=== PATIENT | female | born 1960 | race Caucasian/White ===

== ENCOUNTER 2022-03-23 18:02 | Outpatient (REF) | payer MEDICARE, BC, SELFPAY ==
[2022-03-23 16:47] LABS: COMMENT (LAB VIEW ONLY) 192.23 mg/dL; Microalb ug/mg Crea 6.2 ug/mg Cr
[2022-03-23 19:01] LABS: HCT 37.3 % (36.0-46.0); HGB 11.8 g/dL (11.2-15.7); MCH 28.7 pg (27.0-33.0); MCHC 31.6 % (32.0-36.0); MCV 91 fL (80-95); MPV 9.4 fL (8.0-11.0); Platelet Count 310 10^3/uL (130-400); RBC 4.11 10^6/uL (3.93-5.22); RDW 12.7 % (11.7-14.6); RDW-SD 41.8 fL; WBC 7.01 10^3/uL (4.4-10.8)
[2022-03-23 19:12] LABS: Hemoglobin A1C 5.6 % (<5.7)
[2022-03-23 19:23] LABS: ALT 32 U/L (14-59); AST 13 U/L (15-37); Albumin 3.9 g/dL (3.4-5.0); Alkaline Phosphatase 104 U/L (46-116); Anion Gap 10.6 mmol/L (3-11); BUN 19 mg/dL (7-18); Bilirubin, Total 1.6 mg/dL (0.2-1.0); CO2 27.4 mmol/L (21.0-32.0); Chloride 107 mmol/L (98-107); Estimated GFR 56.56 (mL/min/1.73m2); Glucose 128 mg/dL (74-106); Potassium 4.2 mmol/L (3.5-5.1); Sodium 145 mmol/L (136-145); TSH 2.33 uIU/mL (0.36-3.74); Total Protein 6.8 g/dL (6.4-8.2)
== END 2022-03-23 18:03 | disposition home or self-care (01) ==
LOC: NCHCN 18:02
PROVIDERS: Visit Provider Nurse Practitioner Family
DX: E11.9 Type 2 diabetes mellitus without complications (principal); K92.9 Disease of digestive system, unspecified; M79.7 Fibromyalgia; R51.9 Headache, unspecified; E83.42 Hypomagnesemia; N39.0 Urinary tract infection, site not specified; I10 Essential (primary) hypertension
CPT/HCPCS: 80053; 85027; 82043; 82570; 83036; 83735; 84443; 87086

== ENCOUNTER → 2022-04-09 10:19 | Outpatient (CLI) | payer MEDICARE, BC, SELFPAY ==
--- NOTE | 2022-04-09 10:50 | DI.RAD_ITS ---
Exam(s) XR HAND LT COMPLETE EXAM: XR HAND LT COMPLETE CLINICAL HISTORY: LEFT HANDPAIN. TECHNIQUE: 2D digital imaging was performed. Three views. COMPARISON: No exams were available for comparison FINDINGS: BONES: No acute fracture is present. No bony destructive lesion is seen. JOINTS: No dislocation present. SOFT TISSUE: Posterior soft tissue swelling. IMPRESSION: No acute bony abnormality. DATA REPOSITORY: RADIATION DOSE DELIVERED:
--- NOTE | 2022-04-09 11:17 | DI.VRAD_ITS ---
PROCEDURE INFORMATION: Exam: XR Left Hand Exam date and time: 04/09/2022 10:52 AM Age: 61 years old Clinical indication: Pain; Hand; Left TECHNIQUE: Imaging protocol: XR Left hand. Views: 3 or more views. COMPARISON: No relevant prior studies available. FINDINGS: Bones/joints: No fracture. The joint spaces are well maintained. No erosive changes are seen. Soft tissues: Unremarkable. IMPRESSION: No evidence of acute fracture or dislocation. Dictated and Authenticated by: Yonathan Phelps MD. Ordering:MATTHEW Leblanc MD
[2022-04-09 12:21] LABS: Abs Immature Grans 0.01 10^3/uL (0.0-0.06); Absolute Basophil Count 0.06 10^3/uL (0.0-0.2); Absolute Eosinophil Count 0.14 10^3/uL (0.0-0.7); Absolute Lymphocyte Count 2.05 10^3/uL (1.2-3.4); Absolute Monocyte Count 0.47 10^3/uL (0.1-0.8); Absolute Neutrophil Count 2.61 10^3/uL (1.2-6.7); Basophils % 1.1; Eosinophils % 2.6; HCT 36.3 % (36.0-46.0); HGB 11.8 g/dL (11.2-15.7); Immature Grans % 0.2; Lymphocytes % 38.4; MCH 28.9 pg (27.0-33.0); MCHC 32.5 % (32.0-36.0); MCV 89 fL (80-95); Monocytes % 8.8; Neutrophils % 48.9; Platelet Count 359 10^3/uL (130-400); RBC 4.08 10^6/uL (3.93-5.22); RDW 12.4 % (11.7-14.6); RDW-SD 40.4 fL; WBC 5.34 10^3/uL (4.4-10.8)
[2022-04-09 12:37] LABS: ALT 21 U/L (14-59); AST 9 U/L (15-37); Albumin 3.5 g/dL (3.4-5.0); Alkaline Phosphatase 104 U/L (46-116); Anion Gap 9.2 mmol/L (3-11); BUN 16 mg/dL (7-18); Bilirubin, Total 1.2 mg/dL (0.2-1.0); CO2 25.8 mmol/L (21.0-32.0); Chloride 107 mmol/L (98-107); Estimated GFR 56.56 (mL/min/1.73m2); Glucose 169 mg/dL (74-106); Sodium 142 mmol/L (136-145); Total Protein 6.7 g/dL (6.4-8.2)
== END ==
PROVIDERS: PCP Nurse Practitioner Family; Visit Provider Nurse Practitioner Family
DX: M79.642 Pain in left hand (principal); M79.89 Other specified soft tissue disorders; E80.6 Other disorders of bilirubin metabolism
CPT/HCPCS: 80053; 73130; 84550; 85025

== ENCOUNTER → 2022-04-15 00:11 | Outpatient (CLI) | payer MEDICARE, SELFPAY ==
--- OUTSIDE RECORDS SUMMARY | 2022-04-15 00:12 | XMS_ITS | Continuity of Care Document ---
:1960 Author Organization [facility] Address [address] [place] [address] Care Team Providers Name Role Phone Out of Town, Provider Primary Care Physician Unavailable Allergies, Adverse Reactions, Alerts Allergen Type Severity Reaction Last Updated Verified Status codeine Allergy Moderate March 27, 2017 Y Active Penicillins Allergy Mild March 27, 2017 Y Activ e Sulfa (Sulfonamide Allergy Mild March 27, 2017 Y Active Antibiotics) aspirin Adverse Reaction Mild March 27, 2017 Y Active Medications Active Medications Medication Dose Units Route Sig Qty Days Start Status Instru ctions Date Cyclobenzaprine 10 mg ORAL THREE March 27, Active TIMES A 2016 DAY Metformin 500 mg ORAL TWICE A March 27, Active DAY 2016 Fluticasone 1 inh INHALATION TWICE A March 27, Active DAY 2016 Omeprazole 40 mg ORAL TWICE A March 27, Active DAY 2016 Trazodone March 27, Active 2017 Albuterol Sulfate 1 puff INHALATION Q6H March 27, A ctive 2016 Multivitamin 1 tab-cap ORAL DAILY March 27, Active 2016 Lovastatin 20 mg ORAL TWICE A March 27, Active DAY 2017 Metoprolol 25 mg ORAL DAILY March 27, Active Tartrate 2017 Duloxetine 60 mg ORAL DAILY March 27, Active 2017 Pregabalin 50 mg ORAL THREE March 27, Active [Lyrica] TIMES A 2016 DAY Sitagliptin-Metfor 1 tab ORAL TWICE A March 27, Act shaniqua min [Janumet] DAY 2016 Budesonide-Formote 2 inh INHALATION TWICE A March 27, Active rol [Symbicort] DAY 2016 Oxycodone-Acetamin 1 TAB ORAL Q4H PRN 10 Acti ve ophen [Percocet] For pain Lidocaine 1 PATCH TOPICALLY Q24H 7 March 27, Active tootie ve on for [Lidoderm] 2016 12 hrs ; cover most painf ul area; february cut into small er pieces Methocarbamol 750 MG ORAL Q6H 16 4 March 27, Active 2017 Prednisone 20 MG ORAL DAILY 9 March 27, Active take 60mg 2017 daily x 1 day, then 40mg daily x2 d ays , then 20 mg daily x 2 days...adm inis ter with f ood or milk Problem List No problem information available. Procedures No known history of procedures. Reason for Referral Reason for Referral Date Referral Provider Office Contact Locat ion was Provided Relevant Diagnostic Tests and/or Laboratory Data No known relevant diagnostic tests, laboratory data, and/or discharge summary. Advance Directives Advance Directive Response Recorded Date/Time Do we have a copy on file here at [facility]? No M ay 2016 8:22pm Does patient have an Advanced Directive? No March 27, 2017 8:22pm Pt has a Living Will? No March 27, 2017 8:22p m Pt has a Power of Azure Architect? No March 27, 2017 8:22pm Chief Complaint and Reason for Visit Encounter Admit Date Chief Complaint Reason for Visit Departed Emergency March 27, 2017 7:36pm BACK PAIN Hospital Discharge Instructions No known hospital discharge instructions. Hospital Discharge Medications Medication Dose Units Route Sig Qty Days Order Status Instru ctions Date Cyclobenzaprine 10 mg ORAL THREE March 27, Active TIMES A 2016 DAY Metformin 500 mg ORAL TWICE A March 27, Active DAY 2016 Fluticasone 1 inh INHALATION TWICE A March 27, Active DAY 2016 Omeprazole 40 mg ORAL TWICE A March 27, Active DAY 2016 Trazodone March 27, Active 2016 Albuterol Sulfate 1 puff INHALATION Q6H March 27, A ctive 2017 Multivitamin 1 tab-cap ORAL DAILY March 27, Active 2017 Lovastatin 20 mg ORAL TWICE A March 27, Active DAY 2016 Metoprolol 25 mg ORAL DAILY March 27, Active Tartrate 2017 Duloxetine 60 mg ORAL DAILY March 27, Active 2017 Pregabalin 50 mg ORAL THREE March 27, Active TIMES A 2016 DAY Sitagliptin-Metfor 1 tab ORAL TWICE A March 27, Act shaniqua min DAY 2016 Budesonide-Formote 2 inh INHALATION TWICE A March 27, Active rol DAY 2016 Oxycodone-Acetamin 1 TAB ORAL Q4H PRN 10 Acti ve ophen For pain Lidocaine 1 PATCH TOPICALLY Q24H March 27, Active tootie ve on for 2016 12 hrs ; c over most painf ul area; may cut into small er pieces Methocarbamol 750 MG ORAL Q6H 16 4 March 27, Active 2017 Prednisone 20 MG ORAL DAILY March 27, Active take 60mg 2017 daily x 1 day, then 40mg daily x2 d ays , then 20 mg daily x 2 days...adm inis ter with f ood or milk Encounters Encounter Facility Location Admit/Visit Discharge/Departure Atte nding Date Date Provider Departed [facility] Emergency March 27, 2017 March 27, 2017 11:14pm [facility] Department 7:36pm Functional Status No known functional status. Immunizations No known immunizations. Payers Payer Name Policy Type Covered Covered Relationship Subscriber Sub scriber Id Libertarian Libertarian Id MEDICARE Medicare ERIKA [id number] Self/Same as ERIKA BETTENCOURT [id number] PART A AND B Primary RUT Patient COVERAGE SELF PAY Personal Plan of Care No Known Plan of Care Information Social History Query Response Start Date Stop Date Smoking Status Never Smoker Vital Signs Vital Reading Result Reference Range Collection Date/ Time Height n/a Weight 82.554 kg March 27, 2017 7:5 4pm Temperature 98.2 F 97.6 F-99.6 F March 27, 2017 7:5 4pm Pulse 95 BPM 60-100 March 27, 2017 11: 13pm Respiration 18 RPM 12-March 27, 2017 11: 13pm Pulse Oximetry 94 % 95-100 March 27, 2017 11: 13pm Blood Pressure Systolic 124 100-140 March 27, 2017 11:13pm Blood Pressure Diastolic 66 50-85 March 27, 2017 11:13pm Body Mass Index n/a
--- OUTSIDE RECORDS SUMMARY | 2022-04-15 00:12 | XMS_ITS | Continuity of Care Document ---
:1960 Author Organization [facility] Address [address] [place] [address] Care Team Providers Name Role Phone Out of Town, Provider Primary Care Physician Unavailable Allergies, Adverse Reactions, Alerts Allergen Type Severity Reaction Last Updated Verified Status codeine Allergy Moderate October 22 Active 2018 Penicillins Allergy Mild October 22 Activ e 2018 Sulfa (Sulfonamide Allergy Mild October 22 Active Antibiotics) 2018 aspirin Adverse Reaction Mild October 22 Active 2018 Medications Active Medications Medication Dose Units Route Sig Qty Days Start Status Instru ctions Date Cyclobenzaprine 10 MG ORAL THREE March 27, Active TIMES A 2016 DAY Metformin 500 MG ORAL TWICE A March 27, Active DAY 2017 Fluticasone 1 INH INHALATION TWICE A March 27, Active DAY 2017 Omeprazole 40 MG ORAL TWICE A March 27, Active DAY 2017 Trazodone 100 MG ORAL BEDTIME March 27, Active 2017 Albuterol Sulfate 1 PUFF INHALATION Q6H March 27, A ctive 2017 Multivitamin 1 TAB-CAP ORAL DAILY March 27, Active 2017 Lovastatin 20 MG ORAL TWICE A March 27, Active DAY 2017 Metoprolol 25 MG ORAL DAILY March 27, Active Tartrate 2017 Duloxetine 60 MG ORAL DAILY March 27, Active 2017 Pregabalin 50 MG ORAL THREE March 27, Active [Lyrica] TIMES A 2017 DAY Sitagliptin-Metfo 1 TAB ORAL TWICE A March 27, Acti ve rmin [Janumet] DAY 2016 Budesonide-Formot 2 INH INHALATION TWICE A March 27, Active den [Symbicort] DAY 2017 Oxycodone-Acetami 1 TAB ORAL Q4H PRN March 27, Acti ve nophen [Percocet] For pain 2017 Lidocaine 1 PATCH TOPICALLY Q24H March 27, Active tootie ve on for [Lidoderm] 2016 12 hrs ; cover most painful ar ea; may cut in to smaller pieces Methocarbamol 750 MG ORAL Q6H 16 March 27, 2016 Prednisone 20 MG ORAL DAILY March 27, Active take 60mg 2017 daily x 1 day, then 40mg daily x2 days , the n 20 mg arely y x 2 days...adm ini ster with food or mi lk Problem List Active Problems Medical Problem Onset Date Status Abscess of breast, right Active Procedures Procedure Date Status US Breast RT (Limited) October 22, 2018 completed Relevant Diagnostic Tests and/or Laboratory Data No known relevant diagnostic tests, laboratory data, and/or discharge summary. Advance Directives Advance Directive Response Recorded Date/Time Do we have a copy on file here at [facility]? No M ay 2016 8:22pm Does patient have an Advanced Directive? No March 27, 2017 8:22pm Pt has a Living Will? No March 27, 2017 8:22p m Pt has a Power of Bio Medical Technician? No March 27, 2017 8:22pm Chief Complaint and Reason for Visit Encounter Admit Date Chief Complaint Reason for Visit Departed Emergency October 22, 2018 1:53pm BREAST ABSCESS Hospital Discharge Instructions Additional Discharge Instructions The abscess has drai kate and there are no fluid collections inside the breas t. There is still some residual inflammation which is uncomfortable. Antibiotics are not indicate d at this point as the treatment for abscesses to d rain them and yours has drained spontaneously. You c an use warm compresses over the breast for comfort take Tylenol and/or ibuprofen as needed for pain . If another abscess should occur he should get a cultures to see if it is positive for MRSA as ther e is a treatment you can do in the nose to kill t he residual bacteria that that remains there late ntly waiting to cause another abscess. No Instructions/Education Provided Hospital Discharge Medications Medication Dose Units Route Sig Qty Days Order Status Instru ctions Date Cyclobenzaprine 10 MG ORAL THREE March 27, Active TIMES A 2016 DAY Metformin 500 MG ORAL TWICE A March 27, Active DAY 2016 Fluticasone 1 INH INHALATION TWICE A March 27, Active DAY 2016 Omeprazole 40 MG ORAL TWICE A March 27, Active DAY 2016 Trazodone 100 MG ORAL BEDTIME March 27, 2016 Albuterol Sulfate 1 PUFF INHALATION Q6H March 27, A ctive 2017 Multivitamin 1 TAB-CAP ORAL DAILY March 27, Active 2017 Lovastatin 20 MG ORAL TWICE A March 27, Active DAY 2016 Metoprolol 25 MG ORAL DAILY March 27, Active Tartrate 2017 Duloxetine 60 MG ORAL DAILY March 27, Active 2017 Pregabalin 50 MG ORAL THREE March 27, Active TIMES A 2017 DAY Sitagliptin-Metfo 1 TAB ORAL TWICE A March 27, Acti ve rmin DAY 2016 Budesonide-Formot 2 INH INHALATION TWICE A March 27, Active den 2016 Oxycodone-Acetami 1 TAB ORAL Q4H PRN March 27, Acti ve nophen For pain 2016 Lidocaine 1 PATCH TOPICALLY Q24H March 27, Active tootie ve on for 2016 12 hrs ; cover most painful ar ea; february cut in to smaller pieces Methocarbamol 750 MG ORAL Q6H 16 March 27, Active 2016 Prednisone 20 MG ORAL DAILY March 27, Active take 60mg 2017 daily x 1 day, then 40mg daily x2 days , the n 20 mg arely y x 2 days...adm ini ster with food or mi lk Encounters Encounter Facility Location Admit/Visit Discharge/Departure Atte nding Date Date Provider Departed [facility] Emergency October 22October 22, 2018 [facility] Department 2017 1:53pm 4:13pm Functional Status No known functional status. Immunizations No known immunizations. Payers Payer Name Policy Type Covered Covered Relationship Subscriber Sub scriber Id Constitution Party Constitution Party Id MEDICARE PART Medicare ERIKA [id number] Self/Same as ERIKA BETTENCOURT [id number] A AND B Primary RUT Patient COVERAGE [facility] ERIKA [id number] Self/Same as ERIKA BETTENCOURT [id number] [facility] RUT Patient SELF PAY Personal Plan of Care No Known Plan of Care Information Social History Query Response Start Date Stop Date Smoking Status Former smoker Vital Signs Vital Reading Result Reference Range Collection Date/ Time Height n/a Weight 84.368 kg October 22 8 1:56pm Temperature 98.7 F 97.6 F-99.6 F October 22 8 1:56pm Pulse 60 BPM 60-100 October 22 8 4:12pm Respiration 20 RPM -October 22 8 4:12pm Pulse Oximetry 99 % 95-100 October 22 8 4:12pm Blood Pressure Systolic 158 100-140 October 22, 2018 4:12pm Blood Pressure Diastolic 78 50-85 [place] 2017 4:12pm Body Mass Index n/a
--- NOTE | 2022-04-15 07:30 | DI.MAMMO_ITS ---
Exam(s) MAMMO SCREENING EXAM: MAMMO SCREENING CLINICAL HISTORY: screening,Z12.39 TECHNIQUE: Bilateral full field digital CC and MLO mammographic images were obtained with 3D tomosyn thesis and utilizing computer aided detection (CAD). COMPARISON: None. FINDINGS: Masses/Architectural Distortion: None seen. Microcalcifications: No suspicious pleomorphic-type are seen. Skin Thickening/Nipple Retraction: None. IMPRESSION: 1. No significant interval change with no specific features of malignancy noted. 2. Unless there is more urgent need, screening mammography is recommended, as per [employer] guidelines. BI-RADS Category 1 - Negative Breast Density - Category B - Scattered areas of fibroglandular density Breast density category C or D implies that the patient has dense breast tissue. Dense breast tissue is very common and is not abnormal but dense breast tissue can make it harder to find cancer on a ma mmogram. Also, dense breast tissue may increase their breast cancer risk. This information about the result of the mammogram report was provided to the patient to raise their awareness. Use this report when you speak with the patient about their risks for breast cancer, which includes their family hist ory. At that time, you may recommend for more screening tests (Ultrasound or MRI) as they might be us eful based on their risk. A negative radiographic report should not delay biopsy if a dominant or clinically suspicious mass is present. Up to ten percent of cancers are not identified on mammography. A negative report may reinforce clinical impression. Adenosis and dense breasts may obscure an underlying neoplasm. False positive reports average 6 to 10%. Patient will receive a letter notifying them of these results.
== END ==
PROVIDERS: PCP Nurse Practitioner Family; Visit Provider Obstetrics & Gynecology
DX: Z12.31 Encounter for screening mammogram for malignant neoplasm of breast (principal)
CPT/HCPCS: 77063; 77067

== ENCOUNTER → 2022-05-03 14:28 | Outpatient (BNVA) | payer MEDICARE, MEDICAID, SELFPAY | PROVIDERS: PCP Nurse Practitioner Family; Referring Provider Nurse Practitioner Family; Visit Provider Surgery | DX: Z12.11 Encounter for screening for malignant neoplasm of colon (principal); Z86.010 Personal history of colon polyps; K64.9 Unspecified hemorrhoids; K21.9 Gastro-esophageal reflux disease without esophagitis ==

== ENCOUNTER 2022-06-13 02:24 | Outpatient (CLI) | payer MEDICARE, MEDICAID, SELFPAY ==
[2022-06-13 10:44] LABS: Source Nasal/Nares
[2022-06-13 16:06] LABS: COVID-19 PCR Negative (Negative)
== END 2022-06-13 02:25 | disposition home or self-care (01) ==
PROVIDERS: PCP Nurse Practitioner Family; Visit Provider Surgery
DX: Z20.822 Contact with and (suspected) exposure to COVID-19 (principal); Z01.818 Encounter for other preprocedural examination
CPT/HCPCS: 87635

== ENCOUNTER 2022-06-15 08:22 | Day surgery (SDC) | payer MEDICARE, MEDICAID, SELFPAY ==
[2022-06-15] VITALS (7 sets, daily range): BP systolic 113–130; BP diastolic 64–88; PULSE 76–84; RESP 12–19; TEMP 36–36.6; O2SAT 93–98; BMI 34.0
--- NOTE | 2022-06-15 05:23 | HPE_ITS ---
Assessment and Plan Assessment and plan (1) Encounter for colonoscopy due to history of adenomatous colonic polyps: Status: Acute Assessment and plan: Cherelle is a pleasant 62-year-old female who is here today with her son to discuss a colonoscopy for a history of polyps, an upper endoscopy for GERD which is currently not well controlled on Pepcid 20 mg daily.? We discussed also doing a internal hemorrhoid banding at the same time.? I discussed the procedure in detail with the patient and his son as well as the risks and benefits.? I will have her stop her Plavix for 3 days prior to the procedure.? Her heart rate is regular.? In the meantime continue with the hemorrhoid cream for discomfort and Pepcid for her GERD. Risks, benefits and complications have been reviewed. Complications include but are not limited to bleeding, pain, perforation, missed small lesion/polyp, sore throat, aspiration and adverse reaction to the medications. Questions were entertained and answered to their satisfaction and they wished to proceed. No guarantees were given or implied. Proceed with colonoscopy and internal hemorrhoid banding and EGD Anesthesia: general (without airway) Previous surgical intolerances: No Previous surgical complications: No Pulmonary risk factors: age > 60 Date of surgery: 06/15/22 Planned procedure: Yes Sleep apnea risks: No Can climb one flight of stairs (12-13 steps) in less than 30 seconds without stopping and without symptoms: Yes The surgery proposed for this patient is: low risk Active cardiac conditions: none Active risk factors: none ASA (acetylsalicylic acid): not used Beta blockers: not used (2) Hemorrhoids: Status: Acute (3) GERD (gastroesophageal reflux disease): History of Present Illness Narrative: Mrs Husain is a pleasant 62-year-old female who comes in today with her son for a complaint of hemorrhoids.? She recently moved up from [place] after suffering a stroke which has affected her cognitive abilities.? Per her son there was no cause found for the stroke.? She was placed on Plavix to try to avoid another stroke.? Her history is complex and unfortunately her son and daughter only know it is in pieces of it and are trying to gather as much information as they can.? The patient does have a history of having small bowel removed for what sounds like that bowel on clear as to the etiology of it.? Since then she has had diarrhea pretty much every time she eats.? She has had colonoscopies in the past and she can tell me that she did have polyps.? Per her son she is overdue at this time for her.? She also has a history of reflux which was well controlled on omeprazole.? Unfortunately she developed severe hypomagnesemia hypokalemia on omeprazole and had falls because of it.? She was then switched to Pepcid 20 mg daily which unfortunately is not controlling her symptoms.? In regards to her hemorrhoids she tells me that she has had them for a long time.? She believes that she has internal and external hemorrhoids.? She complains of intermittent bleeding, intermittent swelling and intermittent pain.? She does take a [id number] hemorrhoid cream which helps the burning and itching.? She denies any chest pain or palpitations.? She denies any shortness of breath. There have been no changes since I last saw her in the office Review of Systems All systems reviewed & are unremarkable except as noted in HPI and below PFSH All Active Problems Encounter for colonoscopy due to history of adenomatous colonic polyps (Acute) Stroke due to embolism (Acute ~2020) Hemorrhoids (Acute) Medical History Anxiety Arthritis Asthma, chronic Atrial flutter Back pain Cannabis abuse Carpal tunnel syndrome on both sides Chronic pain Depression Eye disorder Fibromyalgia Gastrointestinal disorder GERD (gastroesophageal reflux disease) H/O meningioma of the brain H/O urinary frequency Headache History of depression History of endometrial cancer S/p hysterectomy Ovaries still in situ?? Hx of meningioma of the brain Hyperlipidemia Hypertension Hypomagnesemia Tobacco use Type 2 diabetes mellitus Urinary frequency Surgical History H/O knee surgery H/O: hysterectomy Social History Smoking/Tobacco Use Status: Former Tobacco Use Quit Date: 10/30/01 Smoking risk assessment performed?: Yes Alcohol Intake: never Drug use: Rarely Substance use type: does not use Current gender identity: female Do you feel safe at home: Yes Do you feel safe in your relationship?: Yes Additional Social history: unable to assess jasmeetserge Female Reproductive History Menstrual Age of Menarche: 12 Duration of menses: 6-7 days Menopause type: natural History History 4 Para 2 Hx # Term Pregnancies 2 Multiple births Hx # Pregnancies Ectopic pregnancies AB induced Hx Number of Living Children AB spontaneous 2 Past Pregnancies Del. Date GA/Weeks # Preg Succ Route Wgt Sex Labor Lgth Anesth esia Location Prov [facility] 02/27/80 39 No vaginal 7 lb 6 oz Male [facility] 02/15/83 40 No vaginal 8 lb 4 oz Female [facility] Delivery Date: 02/27/80 Last Updated by: Monik Corley Delivery Date: 02/15/83 Last Updated by: Monik Durbin Meds Allergies and Home Medications Allergies Allergy/AdvReac Type Severity Reaction Status Date / Time lorazepam Allergy Severe Unknown Unverified 06/15/22 08:37 codeine Allergy Skin Rash Unverified 06/15/22 08:37 Penicillins Allergy Skin Rash Unverified 06/15/22 08:37 pollen extracts Allergy Unverified 06/14/22 11:05 Sulfa (Sulfonamide Allergy Skin Rash Unverified 06/15/22 08:37 Antibiotics) adhesive AdvReac Unknown Unverified 06/14/22 11:05 aspirin AdvReac because Unverified 06/15/22 08:37 of my asthma house dust AdvReac Unverified 06/14/22 11:05 latex AdvReac rash Unverified 06/15/22 08:37 Home Medications Medication Instructions Recorded Confirmed Type atorvastatin 20 mg tablet 20 mg PO DAILY 04/07/22 06/15/22 History blood sugar diagnostic (Accu-Chek 04/07/22 06/14/22 History Shannen Plus test strips) buspirone 5 mg tablet 5 mg PO BID 04/07/22 06/15/22 History clopidogrel 75 mg tablet 75 mg PO DAILY 04/07/22 06/14/22 History famotidine 20 mg tablet 20 mg PO DAILY 04/07/22 06/15/22 History trazodone 50 mg tablet 50 mg PO QHS 04/07/22 06/15/22 History valproic acid 250 mg capsule 250 mg PO BID 04/07/22 06/15/22 History duloxetine 20 mg capsule,delayed 20 mg PO BID 04/11/22 06/15/22 History release (Cymbalta) bisacodyl 5 mg tablet,delayed 5 mg PO ONCE colonscopy bowel prep 06/08/22 06/14/22 Rx release (Dulcolax (bisacodyl)) #4 tabs magnesium 200 mg tablet 400 mg PO DAILY 06/08/22 06/15/22 History polyethylene glycol 3350 17 238 g PO ONCE colonoscopy prep 06/08/22 06/14/22 Rx gram/dose oral powder #238 grams Exam Const General: cooperative, comfortable and no acute distress [facility] Head: normocephalic and atraumatic Resp Effort & Inspection: normal respiratory effort Auscultation: clear to auscultation bilaterally Cardio Rate: regular rate Rhythm: regular rhythm
--- NOTE | 2022-06-15 05:26 | W.PM.ENDDOP ---
Date of service: 06/15/22 Time of Service: 12:02 Endoscopy Report DATE OF PROCEDURE: 06/15/22 PRE-OP DIAGNOSIS: Colon Cancer Screening, GERD, Internal hemorrhoids PROCEDURE: 1. EGD with biopsies 2. [place] SURGEON: Norma Vee ANESTHESIA TYPE: General:No Airway ESTIMATED BLOOD LOSS: 2 PATHOLOGY: other (gastric bx, GE junction bx) COMPLICATIONS: None DISPOSITION: same day INDICATIONS: Cherelle is a pleasant 62-year-old female who is here today with her son to discuss a colonoscopy for a history of polyps, an upper endoscopy for GERD which is currently not well controlled on Pepcid 20 mg daily.? We discussed also doing a internal hemorrhoid banding at the same time.? I discussed the procedure in detail with the patient and his son as well as the risks and benefits.? I will have her stop her Plavix for 3 days prior to the procedure.? Her heart rate is regular.? In the meantime continue with the hemorrhoid cream for discomfort and Pepcid for her GERD. Risks, benefits and complications have been reviewed. Complications include but are not limited to bleeding, pain, perforation, missed small lesion/polyp, sore throat, aspiration and adverse reaction to the medications. Questions were entertained and answered to their satisfaction and they wished to proceed. No guarantees were given or implied. Proceed with colonoscopy and internal hemorrhoid banding and EGD PREP: Miralax/Dulcolax PROCEDURE START TIME: 12:02 PROCEDURE END TIME: 12:42 COLONOSCOPY RETRACTION TIME: 10 minutes FINDINGS: inflammation of the stomach and esophagus Normal large bowel PROCEDURE DESCRIPTION: After informed consent was obtained the patient was take to the procedure room and placed in a supine position. Monitors were applied and a time out was done. The patients name, date of , procedure type, allergies to medications and metal in their body was reviewed. A bite block was placed and the patient was sedated. Once sedated and comfortable the gastroscope was advanced through the oropharynx which was grossly normal into the esophagus. The proximal and mid-esophagus were normal. In the distal esophagus there was mild inflammation noted. The scope was advanced into the stomach and through the pylorus into the 3rd portion of the duodenum. The duodenum was noted to be normal. The scope was retracted back into the stomach. There was mild inflammation noted in the antrum. Biopsies were done to rule out H. pylori. There were no ulcers. The scope was retro-flexed. The cardia and fundus were noted to be normal. There was no hiatal hernia noted. The scope was retracted back into the esophagus and biopsies were done of the GE junction to rule out Alvarez's. The Z line was regular. The GE junction was at 35 cm. While the patient was still sedated they were placed in a left decubitous position. A rectal exam was done. External exam revealed mild rectal prlapse. Internal exam revealed a normal sphincter tone and no palpable masses. The scope was then introduced and retro-flexed. No internal hemorrhoids, masses or polyps were identified on retroflexion. The scope was then advanced to the cecum without difficulty. The ileocecal valve and appendiceal orifice were identified. The prep was adequate. The scope was then slowly retracted over 10 minutes back into the rectum. There were no polyps and there was no diverticulosis noted. The scope was removed and the patient was woken up and taken back to Same day surgery in stable condition. The patient tolerated the procedure well and there were no immediate complications.
--- NOTE | 2022-06-15 05:29 | W.PM.DSUDISC ---
Discharge Plan Disposition Patient Disposition: HOME Condition: Good Discharge Details Reason For Visit: colonoscopy/EGD Attending Provider: Norma Vee Primary Care Provider: BHAVANI GUTIERREZ Home Meds and New Rx's Prescriptions: Continued famotidine 20 mg tablet 20 mg PO DAILY valproic acid 250 mg capsule 250 mg PO BID buspirone 5 mg tablet 5 mg PO BID trazodone 50 mg tablet 50 mg PO QHS atorvastatin 20 mg tablet 20 mg PO DAILY clopidogrel 75 mg tablet 75 mg PO DAILY (DME) Accu-Chek Shannen Plus test strp Strip See Rx Instructions .Route Rx Instructions: As directed, Use 1 strip via meter 3 times a day. magnesium 200 mg tablet 400 mg PO DAILY duloxetine [Cymbalta] 20 mg capsule,delayed release(DR/EC) 20 mg PO BID Discontinued polyethylene glycol 3350 17 gram/dose powder 238 g PO ONCE Qty: 238 0RF Rx Instructions: take per colonoscopy instructions bisacodyl [Dulcolax (bisacodyl)] 5 mg tablet,delayed release (DR/EC) 5 mg PO ONCE Qty: 4 0RF Rx Instructions: take per colonoscopy instructions Discharge Instructions Instructions: Gastritis (DC), Rectal Prolapse (DC) Additional Instructions: Findings: mild inflammation in the stomach and esophagus- increase Famotidine to 20 mg po BID mild rectal prolapse Follow up: I will send a letter in 7-10 days with recommendations once I have the biopsy results Please call if you develop: fevers >101.5 Nausea or Vomiting Abdominal pain that is not transient Rectal bleeding that is more then a tbsp A hard abdomen and inability to pass gas DAY SURGERY UNIT POST ENDOSCOPY INSTRUCTIONS Instructions for everyone who is given Anesthesia: For your safety, please do the following for the next 24 Hours: a. Do not drive or operate dangerous equipment b. Do not drink alcohol beverages or use any recreational drugs for the first 24 hours or while taking pain medications. The medications in your body may have a reaction that can be dangerous. c. Do not make any important decisions or sign any important papers 1. Generally there are no restrictions on your activity after a day or so has gone by, but you may feel a bit fatigued for a few days. 2. After you arrive home you may have a light meal and return to a normal diet as you can tolerate it without feeling sick to your stomach. 3. After surgery, you may feel pain or discomfort. This should be only transient, but if it persists please contact your doctor. 4. If there are any questions regarding the findings of your procedure, please feel free to contact your doctor. 6. If you are unable to contact your doctor with a problem, contact the hospital at [phone]. 7. Continue all your regular medications unless directed otherwise. I understand the above instructions and have no questions. Signature of Patient or Responsible Adult Escort Date/Time Name of Responsible Adult Escort Signature of Nurse Date/Time Activity:: Activity as Tolerated Diet:: As Tolerated Discharge Orders Discharge Orders: Discharge Order (Routine); Ordered 06/15/22 Ordered By: Norma Vee DS: Diagnosis Discharge Diagnosis (1) Encounter for colonoscopy due to history of adenomatous colonic polyps: Status: Acute (2) Hemorrhoids: Status: Acute (3) GERD (gastroesophageal reflux disease):
--- NOTE | 2022-06-15 08:55 | ANES.PREOP_ITS ---
General Info Date of Service Date Performed: 06/15/22 Height: 5 ft Weight: 78.9 kg Body Mass Index (BMI): 34.0 Surgical Procedure: Operation Date: 06/15/22 09:50 Proposed Procedure Side Surgeon p Colonoscopy/Gastroscopy/Internal Hemorrhoid Banding Norma Vee MD Meds Allergies and Home Medications Allergies Allergy/AdvReac Type Severity Reaction Status Date / Time lorazepam Allergy Severe Unknown Unverified 06/15/22 08:37 codeine Allergy Skin Rash Unverified 06/15/22 08:37 Penicillins Allergy Skin Rash Unverified 06/15/22 08:37 pollen extracts Allergy Unverified 06/14/22 11:05 Sulfa (Sulfonamide Allergy Skin Rash Unverified 06/15/22 08:37 Antibiotics) adhesive AdvReac Unknown Unverified 06/14/22 11:05 aspirin AdvReac because Unverified 06/15/22 08:37 of my asthma house dust AdvReac Unverified 06/14/22 11:05 latex AdvReac rash Unverified 06/15/22 08:37 Home Medication Medication Instructions Recorded atorvastatin 20 mg tablet 20 mg PO DAILY 04/07/22 blood sugar diagnostic (Accu-Chek 04/07/22 Shannen Plus test strips) buspirone 5 mg tablet 5 mg PO BID 04/07/22 clopidogrel 75 mg tablet 75 mg PO DAILY 04/07/22 famotidine 20 mg tablet 20 mg PO DAILY 04/07/22 trazodone 50 mg tablet 50 mg PO QHS 04/07/22 valproic acid 250 mg capsule 250 mg PO BID 04/07/22 duloxetine 20 mg capsule,delayed 20 mg PO BID 04/11/22 release (Cymbalta) bisacodyl 5 mg tablet,delayed 5 mg PO ONCE colonscopy bowel prep 06/08/22 release (Dulcolax (bisacodyl)) #4 tabs magnesium 200 mg tablet 400 mg PO DAILY 06/08/22 polyethylene glycol 3350 17 238 g PO ONCE colonoscopy prep 06/08/22 gram/dose oral powder #238 grams Current Visit Medications: Current Medications Generic Name Dose Route Start Last Admin Trade Name Freq PRN Reason Stop Dose Admin Hyoscyamine Sulfate 0.125 mg 06/15/22 05:30 Hyoscyamine 0.125 Mg Sl/Oral/Chew SL DIRECTED PRN Ringer's Solution 1,000 mls @ 80 mls/hr 06/15/22 06:00 IV 07/14/22 23:59 INFUSION [facility] IV Miscellaneous Supplies 1 each 06/15/22 06:00 Iv Access IV 07/14/22 23:59 DIRECTED AIDA Ondansetron HCl 4 mg 06/15/22 05:30 Ondansetron 4 Mg/2 Ml Vial IVP Q4H PRN PRN Nausea / Vomiting Sodium Chloride 0 ml 06/15/22 06:00 Normal Saline Flush 10 Ml Syr IV 07/14/22 23:59 PRN PRN Sodium Chloride 0 ml 06/15/22 06:00 Normal Saline 10 Ml Vial IJ 07/14/22 23:59 DIRECTED PRN Sterile Water 0 ml 06/15/22 06:00 Water,Injection,Sterile 10 Ml Vial IJ 07/14/22 23:59 DIRECTED PRN PFSH Active Problems Active Problems: Problem Status Onset Code Encounter for colonoscopy due to history of adenomatous colonic polyps Z12.11, Z86.010 Stroke due to embolism ~2020 I63.9 Hemorrhoids K64.9 Medical History Medical History Anxiety Arthritis Asthma, chronic Atrial flutter Back pain Cannabis abuse Carpal tunnel syndrome on both sides Chronic pain Depression Eye disorder Fibromyalgia Gastrointestinal disorder GERD (gastroesophageal reflux disease) H/O meningioma of the brain H/O urinary frequency Headache History of depression History of endometrial cancer S/p hysterectomy Ovaries still in situ?? Hx of meningioma of the brain Hyperlipidemia Hypertension Hypomagnesemia Tobacco use Type 2 diabetes mellitus Urinary frequency Surgical History Surgical History H/O knee surgery H/O: hysterectomy Tobacco Smoking/Tobacco Use Status: Former Tobacco Use Alcohol Alcohol Intake: never Substance Use Substance use: Rarely Substance use type: does not use Prental History History 4 Para 2 Hx # Term Pregnancies 2 Multiple births Hx # Pregnancies Ectopic pregnancies AB induced Hx Number of Living Children AB spontaneous 2 Past Pregnancies Del. Date GA/Weeks # Preg Succ Route Wgt Sex Labor Lgth Anesth esia Location Prov Complic 02/27/80 39 No vaginal 3345.244 g Male [facility] 02/15/83 40 No vaginal 3742.137 g Female [facility] Delivery Date: 02/27/80 Last Updated by: Monik Corley Delivery Date: 02/15/83 Last Updated by: Monik Durbin Vital Signs and Lab Results Vital Signs Most Recent Vital Signs in EMR: Most Recent Vital Signs Temp Pulse Resp BP Pulse Ox 36.1 C L 78 16 124/84 94 06/15/22 08:44 06/15/22 08:44 06/15/22 08:44 06/15/22 08:44 06/15/22 08:44 Lab Results Blood Type / Crossmatch: No Data to Display Complete Blood Count: No Data to Display Complete Metabolic Panel: No Data to Display Liver Function Panel: No Data to Display Coagulation Panel: No Data to Display Cardiac Panel: No Data to Display Arterial Blood Gas: No Data to Display Venous Blood Gas: No Data to Display Pancreas Panel: No Data to Display Thyroid Panel: No Data to Display Infectious Disease: Coronavirus (COVID-19)(PCR) Negative (Negative) 06/13/22 08:30 Coronavirus 2019 Source Nasal/Nares 06/13/22 08:30 Blood Cultures: No Data to Display Toxicology Panel: No Data to Display Anesthesia Assessment and Plan Anesthesia History Personal History: Other (problems due to her asthma per the patient) Family History: No Family History of Anesthesia Complications Exercise Tolerance Exercise Tolerance: Metabolic Equivalents>4 Pertinent Negatives Pertinent Negatives: No Major Cardiovascular Symptoms or Complaints Cardiac & Pulmonary Exam Cardiac Exam: Normal S1/S2 Heart Sounds Pulmonary Exam: Clear Bilateral Breath Sounds Implantable Cardiac Device Does patient have a Pacemaker or an ICD?: No Airway Exam Known Difficult Airway: No Mallampati Class: 3 Mouth Opening: Normal (> 3cm) Thyromental Distance: Greater than 3 cm Neck Range of Motion: Full ROM Neck Circumference: Normal Teeth Condition: Normal Dentition (two thin teeth. Indicated lower right. Reports due to grinding teeth) ASA Classification ASA Score: ASA 2 Emergency Case?: No NPO Status NPO Status: NPO Clears >2 hours, Solids >8 hours Anesthesia Plan Resuscitation Status: Full Code Anesthesia Technique: General Anesthesia Airway Planned: Natural Airway Monitors Used: Standard Monitors Preoperative Comments:: Active GERD symptoms every day. Two strokes in past year and a half of unknown etiology. One midsummer 2020 and another in mid-November 2021. Patient residuals of memory impairment. Patient engaged and appropriate today some memory lapses related to past history and word-ordering is slightly off. She reports one episode of trouble with anesthesia due to her asthma: no further details available.
[2022-06-15] MEDS: Lactated Ringers 1,000 ML 80 ML IV (09:17)
--- NOTE | 2022-06-15 12:00 | STOM_PTH ---
PATIENT: Cherelle Husain LOC: [facility] U#:[id number] AGE/SX: 62/F ROOM: RE06/15/[address]: Norma Vee MD : 1960 BED: DIS: 06/15/2022 SPEC #: [id number] RECD: 06/15/22 17:50 STATUS: JIMMY REQ #: [id number] IRA: 06/15/22 12:[address]: Norma Vee DEPT: Surgical Specimen RECD BY: Sushila Florian ENTERED: 06/15/22 17:51 SP TYPE: STOMACH OTHR DR: BHAVANI GUTIERREZ, HEIDE Tissues: 1 - STOMACH BIOPSY 2 - STOMACH BIOPSY 3 - ESOPHAGUS BIOPSY Procedures: GROSS AND MICRO LEVEL 4 Comments: [id number]
--- NOTE | 2022-06-15 14:53 | W.ANESPOSTOP ---
Postoperative Evaluation Date, Time and Location Date Performed: 06/15/22 Time Performed: 14:02 Patient Location: Day Surgery Unit Vital Signs Most Recent Imported Vital Signs: Most Recent Vital Signs Temp Pulse Resp BP Pulse Ox 36.1 C L 76 16 113/70 96 06/15/22 13:52 06/15/22 13:52 06/15/22 13:52 06/15/22 13:52 06/15/22 13:52 Pain Score Most Recent Pain Score: Most Recent Pain Score Pain Level 0 06/15/22 13:26 Assessment Mental Status: Awake (Alert & Oriented to Patient Baseline) Airway and Respiratory Function: Patent airway with normal (patient baseline) respiratory exam Cardiovascular Function: Hemodynamically Stable Hydration Status: Adequately Hydrated Nausea & Vomiting: No Nausea or Vomiting Pain: Pt. Denies Any Pain Peripheral Nerve Block: Patient did not receive a nerve block
== END 2022-06-15 14:50 | disposition home or self-care (01) ==
PROVIDERS: PCP Nurse Practitioner Family; Visit Provider Surgery
PROC: (CPT 43239; principal; 2022-06-15 09:45)
DX: Z12.11 Encounter for screening for malignant neoplasm of colon (principal); K21.9 Gastro-esophageal reflux disease without esophagitis; K64.8 Other hemorrhoids; K29.70 Gastritis, unspecified, without bleeding
CPT/HCPCS: 43239; 45378; 88305; J1100; J2405; J2704

== ENCOUNTER → 2022-07-21 02:29 | Outpatient (CLI) | payer MEDICARE, MEDICAID, SELFPAY ==
--- NOTE | 2022-07-21 | DI.MRI_ITS ---
Exam(s) MR BRAIN WO/W EXAM: MR BRAIN WO/W CLINICAL HISTORY: MENINGIOMA BRAIN D32.0 STROKE I63.9. TECHNIQUE: Multiplanar multisequence MRI of the brain was performed. CONTRAST MATERIAL: IV Contrast: 15 ML of Dotarem contrast administered. COMPARISON: No exams were available for comparison FINDINGS: VENTRICLES AND EXTRA AXIAL SPACES: Normal in size and morphology for the patient's age. HEMORRHAGE: None. CEREBRAL PARENCHYMA: No focus of restricted diffusion to suggest acute infarct. No space-occupying le oliverio identified. MIDLINE SHIFT: None. BRAINSTEM/CEREBELLUM: Normal. ENHANCEMENT: Smoothly marginated, ovoid enhancing extra-axial lesion arising from the meninges in the superior right frontal region, consistent with a small meningioma. There is no significant mass eff ect upon the adjacent brain. It measures 6 x 10 x 7.5 millimeters... VISUALIZED PARANASAL SINUSES/MASTOIDS: Clear. OTHER FINDINGS: Orbits and pituitary are unremarkable. Vascular flow voids are intact. IMPRESSION: Small meningioma over the superior right frontal region. No evidence of infarct or other acute abnor mality. DATA REPOSITORY:
[2022-07-21 09:50] LABS: Anion Gap 5.4 mmol/L (3-11); BUN 19 mg/dL (7-18); CO2 32.6 mmol/L (21.0-32.0); CREATININE 1.1 mg/dL (0.55-1.02); Calcium 9.4 mg/dL (8.5-10.1); Chloride 105 mmol/L (98-107); Estimated GFR 57.17 (mL/min/1.73m2); Glucose 104 mg/dL (74-106); Potassium 4.6 mmol/L (3.5-5.1); Sodium 143 mmol/L (136-145)
[2022-07-21] MEDS: Normal Saline Flush 10 ML SYR IVP (09:57)
== END ==
PROVIDERS: PCP Nurse Practitioner Family; Visit Provider Nurse Practitioner Family
DX: D32.0 Benign neoplasm of cerebral meninges (principal); I63.9 Cerebral infarction, unspecified
CPT/HCPCS: 70553; 80048

== ENCOUNTER → 2022-08-16 08:47 | Outpatient (BNVA) | payer MEDICARE, MEDICAID, SELFPAY | PROVIDERS: PCP Nurse Practitioner Family; Referring Provider Nurse Practitioner Family; Visit Provider Psychiatry & Neurology Neurology | DX: G93.40 Encephalopathy, unspecified (principal); H53.2 Diplopia; R41.3 Other amnesia; D32.0 Benign neoplasm of cerebral meninges; G43.709 Chronic migraine without aura, not intractable, without status migrainosus; M54.2 Cervicalgia; I48.92 Unspecified atrial flutter; I10 Essential (primary) hypertension; E11.9 Type 2 diabetes mellitus without complications | CPT/HCPCS: 99215; G2212 ==

== ENCOUNTER 2022-09-09 01:57 | Outpatient (CLI) | payer MEDICARE, MEDICAID, SELFPAY ==
[2022-09-09 13:10] LABS: ESR 5 mm/hr (0-30)
[2022-09-09 14:41] LABS: Vitamin B12 421 pg/mL (193-986)
[2022-09-09 14:54] LABS: C-Reactive Protein 0.07 mg/dL (0.0-0.3)
[2022-09-12 13:49] LABS: ANA Interpretation Positive (Negative); ANA Titer Pattern 1:80 Speckled
[2022-09-14 01:33] LABS: Thiamine (Vitamin B1), WB 216 nmol/L (70-180)
[2022-09-21 10:16] LABS: AGNA-1 Negative titer (<1:240); ANNA-1 Negative titer (<1:240); ANNA-2 Negative titer (<1:240); ANNA-3 Negative titer (<1:240); PCA-1 Negative titer (<1:240); PCA-2 Negative titer (<1:240); PCA-Tr Negative titer (<1:240)
== END 2022-09-09 01:58 | disposition home or self-care (01) ==
LOC: LBO 01:58
PROVIDERS: PCP Nurse Practitioner Family; Visit Provider Psychiatry & Neurology Neurology
DX: R26.89 Other abnormalities of gait and mobility (principal); R41.3 Other amnesia; G93.49 Other encephalopathy; D32.0 Benign neoplasm of cerebral meninges; M79.7 Fibromyalgia; H53.2 Diplopia; G62.9 Polyneuropathy, unspecified
CPT/HCPCS: 36415; 85652; 82607; 83519; 83520; 84425; 86038; 86140; 86256

== ENCOUNTER → 2022-10-04 10:23 | Outpatient (BNVA) | payer MEDICARE, MEDICAID, SELFPAY | PROVIDERS: PCP Nurse Practitioner Family; Referring Provider Nurse Practitioner Family; Visit Provider Psychiatry & Neurology Neurology | DX: R27.0 Ataxia, unspecified (principal); H55.09 Other forms of nystagmus; R41.3 Other amnesia; D32.0 Benign neoplasm of cerebral meninges; G43.009 Migraine without aura, not intractable, without status migrainosus; I48.92 Unspecified atrial flutter | CPT/HCPCS: 99215 ==

== ENCOUNTER → 2022-11-24 11:22 | Outpatient (BNVA) | payer MEDICARE, MEDICAID, SELFPAY | PROVIDERS: PCP Nurse Practitioner Family; Referring Provider Nurse Practitioner Family; Visit Provider Psychiatry & Neurology Neurology | DX: R42 Dizziness and giddiness (principal); R41.3 Other amnesia; F12.90 Cannabis use, unspecified, uncomplicated; Z79.01 Long term (current) use of anticoagulants; I48.92 Unspecified atrial flutter; G93.40 Encephalopathy, unspecified; D32.0 Benign neoplasm of cerebral meninges; R51.9 Headache, unspecified; G89.29 Other chronic pain; I10 Essential (primary) hypertension; E11.9 Type 2 diabetes mellitus without complications | CPT/HCPCS: 99215 ==

== ENCOUNTER 2022-11-28 02:02 | Outpatient (CLI) | payer MEDICARE, MEDICAID, SELFPAY ==
--- NOTE | 2022-11-28 08:15 | DI.CT_ITS ---
Exam(s) CT BRAIN NECK CTA EXAM: CT BRAIN NECK CTA CLINICAL HISTORY: ? VASCULITIS, CEREBELLAR DYSFUNCTION,G93.40. TECHNIQUE: Imaging Protocol: Axial CT angiography was performed with multi-slice acquisition and mu lti-planar and/or 3D reconstructions. CONTRAST MATERIAL: Intravenous: Omnipaque 350 contrast volume:85 mL COMPARISON: MR MRI BRAIN W/WO CONT from 08/31/2021 MR MRI BRAIN W/WO CONT from 09/06/2021 MR MR BRAIN WO/W from 07/21/2022 FINDINGS: CT Head W/O and W: Ventricles and Extra axial spaces: Normal in size and morphology for the patient's age. There is agai n seen a 0.4 x 1.0 cm enhancing extra-axial lesion along the right frontal bone consistent with a sma ll meningioma. Hemorrhage: None. Cerebral parenchyma: Normal. Midline shift: None. Brainstem/Cerebellum: There is atrophy of the peripheral aspect of the right and left lobes of the ce rebellum. This has progressed since the MRI from 09/06/2021. Calvarium: Normal. Visualized Paranasal sinuses/Mastoids: Clear. Soft Tissues: Unremarkable. Enhancement: Unremarkable. CTA Neck W: Common Carotid: Right: No dissection, occlusion or significant stenosis. Left: No dissection, occlusion or significant stenosis. External Carotid: Right: No occlusion or significant stenosis. Left: No occlusion or significant stenosis. Internal Carotid: Right: No dissection, occlusion or significant stenosis. Left: No dissection, occlusion or significant stenosis. Vertebral Artery: Right: No dissection, occlusion or significant stenosis. Left: No dissection, occlusion or significant stenosis. Lung Apices: Calcified granuloma are seen in the lung apices. Bones: Within normal limits for the patient's age. Soft Tissues: Normal. Thyroid gland: Unremarkable. CTA Brain W: Internal Carotid Arteries: Mild atherosclerosis is seen. No aneurysm, occlusion or significant stenos is is present. Anterior Cerebral Arteries: Right: No aneurysm, occlusion or significant stenosis. Left: No aneurysm, occlusion or significant stenosis. Middle Cerebral Arteries: Right: No aneurysm, occlusion or significant stenosis. Left: No aneurysm, occlusion or significant stenosis. Posterior Cerebral Arteries: Right: No aneurysm, occlusion or significant stenosis. Left: No aneurysm, occlusion or significant stenosis. Vertebral Arteries: Right: No aneurysm, occlusion or significant stenosis. Left: No aneurysm, occlusion or significant stenosis. Basilar Artery: No aneurysm, occlusion or significant stenosis. IMPRESSION: 1. No large vessel occlusion or significant stenosis on the CT angiography of the head. 2. No acute intracranial process. 3. There has been progression of the peripheral atrophy in the right and left cerebellar lobes since the prior examinations. 4. Stable small meningioma. 5. No occlusion or significant stenosis on the CT angiography of the neck. RADIATION DOSE DELIVERED: 1,988.93mGy.cm Total DLP DATA REPOSITORY: All CT scans at this facility are submitted to the National Radiology Data Registry (NRDR) Dose Index Registry (DIR) with the [employer] [place] [employer] (ACR). RADIATION OPTIMIZATION: All CT scans at this facility use at least one of these dose optimization te chniques: automated exposure control; mA and/or kV adjustment per patient size (includes targeted exa ms where dose is matched to clinical indication); or iterative reconstruction.
[2022-11-28 13:20] LABS: Estimated GFR 64.09 (mL/min/1.73m2)
[2022-11-28] MEDS: Normal Saline - Diluent 50 ML VIAL IJ (15:25)
[2022-11-28] MEDS: Omnipaque 350 MG/ML 100 ML BTL IJ (15:25)
[2022-11-28] MEDS: Normal Saline Flush 10 ML SYR IVP (15:26)
== END 2022-11-28 02:22 ==
LOC: DI 02:02
PROVIDERS: PCP Nurse Practitioner Family; Visit Provider Psychiatry & Neurology Neurology
DX: G37.8 Other specified demyelinating diseases of central nervous system (principal); G93.49 Other encephalopathy; G31.89 Other specified degenerative diseases of nervous system; J98.4 Other disorders of lung; D32.0 Benign neoplasm of cerebral meninges
CPT/HCPCS: 70496; 70498; 82565; J3490

== ENCOUNTER 2022-12-02 13:17 | Outpatient (CLI) | payer MEDICARE, MEDICAID, SELFPAY | END 2022-12-02 13:18 | disposition home or self-care (01) | PROVIDERS: PCP Nurse Practitioner Family; Visit Provider Psychiatry & Neurology Neurology | DX: I48.92 Unspecified atrial flutter (principal) | CPT/HCPCS: 93270 ==

== ENCOUNTER 2022-12-05 01:05 | Outpatient (CLI) | payer MEDICARE, MEDICAID, SELFPAY ==
--- NOTE | 2022-12-05 07:15 | DI.MRI_ITS ---
Exam(s) MR CERVICAL SPINE WO EXAM: MR CERVICAL SPINE WO CLINICAL HISTORY: ? c-spine lesion seen on brain MRI,demyelinating lesion,G37.9 TECHNIQUE: Multiplanar multisequence MRI of the cervical spine was performed without intravenous con trast. COMPARISON: MR MRI C SPINE W/WO CONT from 09/07/2021 MR MR BRAIN WO/W from 07/21/2022 FINDINGS: BONES: Vertebral body heights are maintained. Intervertebral disc spaces are normal. Alignment is nor mal. Bone marrow signal intensity is within normal limits. CERVICAL CORD: Craniovertebral junction is unremarkable. The cervical cord is normal size and signal intensity. SOFT TISSUES: Unremarkable. C2-3: No disc herniation or bulge is identified. No significant central spinal canal or neural forami nal stenosis. C3-4: No disc herniation or bulge is identified. No significant central spinal canal or neural forami nal stenosis C4-5: No disc herniation or bulge is identified. No significant central spinal canal or neural forami nal stenosis C5-6: There is mild prominence of the osteophyte disc complex. Hypertrophic changes are seen at the uncovertebral joints bilaterally. No significant central spinal canal stenosis. There is mild bilat eral neural foraminal stenosis. C6-7: There is prominence of the osteophyte disc complex. No significant central spinal canal stenos is. Hypertrophic changes are seen at the uncovertebral joints bilaterally. Mild bilateral neural fo raminal stenosis is present. C7-T1: No disc herniation or bulge is identified. No significant central spinal canal or neural [place] inal stenosis IMPRESSION: 1. Unremarkable appearance of the cervical spinal cord. 2. Multilevel degenerative changes resulting in neural foraminal stenosis at C5-6 and C6-C7. DATA REPOSITORY:
== END 2022-12-05 01:25 ==
LOC: DI 01:06
PROVIDERS: PCP Nurse Practitioner Family; Visit Provider Psychiatry & Neurology Neurology
DX: M50.322 Other cervical disc degeneration at C5-C6 level (principal); M50.323 Other cervical disc degeneration at C6-C7 level; G37.8 Other specified demyelinating diseases of central nervous system
CPT/HCPCS: 72141

== ENCOUNTER 2023-01-05 10:33 | Outpatient (CLI) | payer MEDICARE, MEDICAID, SELFPAY ==
--- NOTE | 2023-01-05 10:51 | W.CARDEVENT ---
Date of service: 01/05/23 Time of Service: 10:51 Cardiac Event Recorder Referring Provider:: Gifty Lamas Indications:: Atrial flutter Cardiac Event Note: This is a 30-day cardiac event monitor Rhythm throughout was sinus. Average heart rate was 80. There was no bradycardia. Maximum heart rate 142 there was no atrial fibrillation, no SVT, no high-grade AV block, no pauses greater than 3 seconds There were no significant ventricular dysrhythmias
== END 2023-01-05 10:34 | disposition home or self-care (01) ==
LOC: CARDOPNVT 10:33
PROVIDERS: PCP Nurse Practitioner Family; Visit Provider Internal Medicine Cardiovascular Disease
DX: I48.92 Unspecified atrial flutter (principal)
CPT/HCPCS: 93272

== ENCOUNTER → 2023-03-23 11:24 | Outpatient (BNVA) | payer MEDICARE, MEDICAID, SELFPAY | PROVIDERS: PCP Nurse Practitioner Family; Referring Provider Nurse Practitioner Family; Visit Provider Psychiatry & Neurology Neurology | DX: H55.00 Unspecified nystagmus (principal); R27.0 Ataxia, unspecified; I48.92 Unspecified atrial flutter; R41.3 Other amnesia; G93.40 Encephalopathy, unspecified; D32.0 Benign neoplasm of cerebral meninges; G43.009 Migraine without aura, not intractable, without status migrainosus | CPT/HCPCS: 99214 ==

== ENCOUNTER → 2023-05-03 14:38 | Outpatient (BNVA) | payer MEDICARE, MEDICAID, SELFPAY | PROVIDERS: PCP Nurse Practitioner Family; Referring Provider Nurse Practitioner Family; Visit Provider Psychiatry & Neurology Neurology | DX: R42 Dizziness and giddiness (principal); R41.3 Other amnesia; D32.0 Benign neoplasm of cerebral meninges; G93.40 Encephalopathy, unspecified; G43.009 Migraine without aura, not intractable, without status migrainosus; I48.92 Unspecified atrial flutter | CPT/HCPCS: 99215 ==

== ENCOUNTER 2023-05-24 02:12 | Outpatient (CLI) | payer MEDICARE, MEDICAID, SELFPAY ==
--- NOTE | 2023-05-24 06:15 | DI.MRI_ITS ---
Exam(s) MR BRAIN WO/W EXAM: MR BRAIN WO/W CLINICAL HISTORY: increased headaches,CEREBRAL MENINGIOMA,D32.0 TECHNIQUE: Multiplanar multisequence MRI of the brain was performed. CONTRAST MATERIAL: IV Contrast: 17 mL of Dotarem contrast administered. COMPARISON: MR MR BRAIN WO/W from 07/21/2022 FINDINGS: VENTRICLES AND EXTRA AXIAL SPACES: Normal in size and morphology for the patient's age. HEMORRHAGE: None. CEREBRAL PARENCHYMA: No focus of restricted diffusion to suggest acute infarct. No space-occupying le oliverio identified. MIDLINE SHIFT: None. BRAINSTEM/CEREBELLUM: Normal. CALVARIUM: Normal. ENHANCEMENT: There is again seen a extra-axial enhancing mass along the right frontal parietal convex ity consistent with a meningioma. It measures 0.7 x 1 x 0.7 cm. This compares to 0.6 x 1 x 0.7 cm o n the prior examination. VISUALIZED PARANASAL SINUSES/MASTOIDS: Clear. [place] OF [place]: Normal flow void. PITUITARY GLAND: Unremarkable. OTHER FINDINGS: IMPRESSION: Stable small meningioma along the right frontal parietal convexity. DATA REPOSITORY:
[2023-05-24 09:45] LABS: CREATININE 0.9 mg/dL (0.55-1.02); Estimated GFR 72.28 (mL/min/1.73m2)
[2023-05-24] MEDS: Normal Saline Flush 10 ML SYR IVP (10:14)
[2023-05-24] MEDS: Gadoterate meglumine 20 ML VIAL 17 ML IVP (10:15)
== END 2023-05-24 02:32 ==
LOC: DI 02:13
PROVIDERS: PCP Nurse Practitioner Family; Visit Provider Psychiatry & Neurology Neurology
DX: D32.0 Benign neoplasm of cerebral meninges (principal); G89.29 Other chronic pain; R51.9 Headache, unspecified
CPT/HCPCS: 70553; 82565

== ENCOUNTER → 2023-08-03 11:21 | Outpatient (BNVA) | payer MEDICARE, MEDICAID, SELFPAY | PROVIDERS: PCP Nurse Practitioner Family; Visit Provider Psychiatry & Neurology Neurology | DX: R42 Dizziness and giddiness (principal); H55.00 Unspecified nystagmus; G93.40 Encephalopathy, unspecified; I48.92 Unspecified atrial flutter; R41.3 Other amnesia; F12.90 Cannabis use, unspecified, uncomplicated; D32.0 Benign neoplasm of cerebral meninges; G43.009 Migraine without aura, not intractable, without status migrainosus; M54.2 Cervicalgia; Z86.73 Personal history of transient ischemic attack (TIA), and cerebral infarction without residual deficits; R68.84 Jaw pain | CPT/HCPCS: 99215 ==

== ENCOUNTER 2023-08-17 16:10 | Outpatient (REF) | payer MEDICARE, MEDICAID, SELFPAY ==
[2023-08-17 20:03] LABS: Abs Immature Grans 0.01 10^3/uL (0.0-0.06); Absolute Basophil Count 0.05 10^3/uL (0.0-0.2); Absolute Eosinophil Count 0.18 10^3/uL (0.0-0.7); Absolute Lymphocyte Count 2.43 10^3/uL (1.2-3.4); Absolute Neutrophil Count 2.92 10^3/uL (1.2-6.7); Basophils % 0.8; Eosinophils % 2.9; HCT 37.7 % (36.0-46.0); HGB 12.2 g/dL (11.2-15.7); Immature Grans % 0.2; Lymphocytes % 39.3; MCH 30.2 pg (27.0-33.0); MCHC 32.4 % (32.0-36.0); MCV 93 fL (80-95); MPV 9.7 fL (8.0-11.0); Monocytes % 9.7; Neutrophils % 47.1; Platelet Count 296 10^3/uL (130-400); RBC 4.04 10^6/uL (3.93-5.22); RDW 12.6 % (11.7-14.6); RDW-SD 43.5 fL; WBC 6.19 10^3/uL (4.4-10.8)
[2023-08-17 20:13] LABS: Iron 68 ug/dL (50-170); Total Iron Binding Capacity 452 ug/dL (250-450); Transferrin Sat 15 % (15-50)
[2023-08-17 20:31] LABS: Hemoglobin A1C 5.8 % (<5.7)
[2023-08-17 20:36] LABS: Vitamin D 25 Total 31.4 ng/mL (30-100)
[2023-08-17 20:42] LABS: ALT 22 U/L (14-59); AST 11 U/L (15-37); Albumin 3.6 g/dL (3.4-5.0); Alkaline Phosphatase 94 U/L (46-116); Anion Gap 9.8 mmol/L (3-11); BUN 17 mg/dL (7-18); CO2 27.2 mmol/L (21.0-32.0); CREATININE 0.9 mg/dL (0.55-1.02); Calcium 9.1 mg/dL (8.5-10.1); Calculated LDL 52 mg/dL (<100); Chloride 106 mmol/L (98-107); Cholesterol 141 mg/dL (<200); Estimated GFR 72.28 (mL/min/1.73m2); Glucose 102 mg/dL (74-106); HDL Cholesterol 46 mg/dL (40-60); Potassium 4.4 mmol/L (3.5-5.1); Sodium 143 mmol/L (136-145); TSH (W/Ref FT4) 1.66 uIU/mL (0.36-3.74); Total Protein 6.9 g/dL (6.4-8.2); Triglyceride 216 mg/dL (<150); Vitamin B12 279 pg/mL (193-986)
== END 2023-08-17 16:11 | disposition home or self-care (01) ==
LOC: NCHCN 16:10
PROVIDERS: PCP Nurse Practitioner Family; Visit Provider Nurse Practitioner Family
DX: E78.5 Hyperlipidemia, unspecified (principal); G25.81 Restless legs syndrome; R73.03 Prediabetes; F41.8 Other specified anxiety disorders; F32.9 Major depressive disorder, single episode, unspecified
CPT/HCPCS: 80053; 80061; 82306; 82607; 83036; 83540; 83550; 84443; 85025

== ENCOUNTER → 2023-09-13 01:15 | Outpatient (CLI) | payer MEDICARE, MEDICAID, SELFPAY ==
--- NOTE | 2023-09-13 | DI.RAD_ITS ---
Exam(s) XR KNEE RT 3V AP,LAT,LEONARD EXAM: XR KNEE RT 3V AP,LAT,LEONARD CLINICAL HISTORY: RT KNEE PAIN, M25.561. TECHNIQUE: 2D digital imaging was performed. COMPARISON: No exams were available for comparison FINDINGS: 3 views There is right knee prosthesis. Components appear to be in satisfactory position alignment. No frac ture or loosening evident. No evidence of osteomyelitis. IMPRESSION: Satisfactory appearance of the prosthesis. DATA REPOSITORY: RADIATION DOSE DELIVERED:
--- NOTE | 2023-09-13 | DI.RAD_ITS ---
Exam(s) XR ANKLE LT COMPLETE EXAM: XR ANKLE LT COMPLETE CLINICAL HISTORY: LT ANKLE PAIN, M25.572. TECHNIQUE: 2D digital imaging was performed. COMPARISON: No exams were available for comparison FINDINGS: 3 views No evidence of fracture or widening of the ankle mortise. Talar dome unremarkable. No soft tissue s welling evident. Bone density normal. No osseous lesions. No evidence of osseous tarsal coalition. IMPRESSION: No significant osseous findings in the left ankle. DATA REPOSITORY: RADIATION DOSE DELIVERED:
== END ==
PROVIDERS: PCP Nurse Practitioner Family; Visit Provider Nurse Practitioner Family
DX: Z98.890 Other specified postprocedural states (principal); M25.572 Pain in left ankle and joints of left foot; M25.571 Pain in right ankle and joints of right foot
CPT/HCPCS: 73562; 73610

== ENCOUNTER → 2023-10-02 12:05 | Outpatient (BNVA) | payer MEDICARE, MEDICAID, SELFPAY | PROVIDERS: PCP Nurse Practitioner Family; Referring Provider Nurse Practitioner Family; Visit Provider Psychiatry & Neurology Neurology | DX: G93.40 Encephalopathy, unspecified (principal); F12.20 Cannabis dependence, uncomplicated; I10 Essential (primary) hypertension; E11.9 Type 2 diabetes mellitus without complications; D32.0 Benign neoplasm of cerebral meninges | CPT/HCPCS: 99215 ==

== ENCOUNTER → 2023-12-18 10:46 | Outpatient (BNVA) | payer MEDICARE, MEDICAID, SELFPAY | PROVIDERS: PCP Nurse Practitioner Family; Referring Provider Nurse Practitioner Family; Visit Provider Psychiatry & Neurology Neurology | DX: G93.40 Encephalopathy, unspecified (principal); H55.00 Unspecified nystagmus; R27.0 Ataxia, unspecified; I48.92 Unspecified atrial flutter; R41.3 Other amnesia; G25.81 Restless legs syndrome; D32.0 Benign neoplasm of cerebral meninges; G43.009 Migraine without aura, not intractable, without status migrainosus; G89.29 Other chronic pain; I63.9 Cerebral infarction, unspecified | CPT/HCPCS: 99215 ==

== ENCOUNTER 2023-12-25 18:28 | Outpatient (REF) | payer MEDICARE, MEDICAID, SELFPAY ==
[2023-12-25 16:32] LABS: Ferritin 46 ng/mL (8-252)
== END 2023-12-25 18:29 | disposition home or self-care (01) ==
LOC: LBN 18:28
PROVIDERS: PCP Nurse Practitioner Family; Visit Provider Psychiatry & Neurology Neurology
DX: E61.1 Iron deficiency (principal)
CPT/HCPCS: 82728

== ENCOUNTER 2024-03-14 15:02 | Outpatient (REF) | payer MEDICARE, MEDICAID, SELFPAY ==
[2024-03-14 20:32] LABS: HCT 35.8 % (36.0-46.0); HGB 11.5 g/dL (11.2-15.7); MCH 30.1 pg (27.0-33.0); MCHC 32.1 % (32.0-36.0); MCV 94 fL (80-95); MPV 9.8 fL (8.0-11.0); Platelet Count 256 10^3/uL (130-400); RBC 3.82 10^6/uL (3.93-5.22); RDW 12.6 % (11.7-14.6); RDW-SD 43.1 fL; WBC 6.42 10^3/uL (4.4-10.8)
[2024-03-14 20:54] LABS: Anion Gap 9.5 mmol/L (3-11); BUN 21 mg/dL (7-18); CO2 26.5 mmol/L (21.0-32.0); Calcium 8.9 mg/dL (8.5-10.1); Chloride 106 mmol/L (98-107); Ferritin 48 ng/mL (8-252); Glucose 176 mg/dL (74-106); Potassium 3.9 mmol/L (3.5-5.1); Sodium 142 mmol/L (136-145)
[2024-03-14 20:57] LABS: Hemoglobin A1C 6.2 % (<5.7)
[2024-03-14 21:22] LABS: Iron 75 ug/dL (50-170); Total Iron Binding Capacity 433 ug/dL (250-450); Transferrin Sat 17 % (15-50)
== END 2024-03-14 15:03 | disposition home or self-care (01) ==
LOC: NCHCN 15:02
PROVIDERS: PCP Nurse Practitioner Family; Visit Provider Nurse Practitioner Family
DX: G25.81 Restless legs syndrome (principal); R73.03 Prediabetes
CPT/HCPCS: 80048; 85027; 82728; 83036; 83540; 83550

== ENCOUNTER → 2024-03-18 10:27 | Outpatient (BNVA) | payer MEDICARE, MEDICAID, SELFPAY | PROVIDERS: PCP Nurse Practitioner Family; Visit Provider Psychiatry & Neurology Neurology | DX: G93.40 Encephalopathy, unspecified (principal); R41.3 Other amnesia; H55.00 Unspecified nystagmus; D32.0 Benign neoplasm of cerebral meninges; G89.29 Other chronic pain; G43.009 Migraine without aura, not intractable, without status migrainosus; R42 Dizziness and giddiness | CPT/HCPCS: 99213 ==

== ENCOUNTER 2024-04-11 00:45 | Outpatient (RCR) | payer MEDICARE, MEDICAID, SELFPAY ==
[2024-04-11] MEDS: IRON SUCROSE COMPLEX 200 MG in Normal Saline 100 ML 440 MG IVPB (10:22)
[2024-04-11] MEDS: Normal Saline Flush 10 ML SYR IVP (10:46)
== END 2024-04-28 23:59 | disposition home or self-care (01) ==
LOC: INF 00:45
PROVIDERS: PCP Nurse Practitioner Family; Visit Provider Psychiatry & Neurology Neurology
DX: D50.9 Iron deficiency anemia, unspecified (principal)
CPT/HCPCS: 96365; J1756

== ENCOUNTER → 2024-05-14 11:35 | Outpatient (BNVA) | payer MEDICARE, MEDICAID, SELFPAY | PROVIDERS: PCP Nurse Practitioner Family; Referring Provider Nurse Practitioner Family; Visit Provider Psychiatry & Neurology Neurology | DX: G25.81 Restless legs syndrome (principal); I48.92 Unspecified atrial flutter; R41.3 Other amnesia; R27.0 Ataxia, unspecified; H55.00 Unspecified nystagmus; D32.0 Benign neoplasm of cerebral meninges; G43.009 Migraine without aura, not intractable, without status migrainosus; I63.9 Cerebral infarction, unspecified; G89.29 Other chronic pain | CPT/HCPCS: 99214 ==

== ENCOUNTER 2024-06-24 02:14 | Outpatient (CLI) | payer MEDICARE, MEDICAID, SELFPAY ==
--- OUTSIDE RECORDS SUMMARY | 2024-06-24 02:15 | XMS_ITS | Encounter Summary ---
Author Organization [facility] Address [address] [place] [address] Care Team Providers Care Validation Engineer Name Role Phone Elly Ling MOTOR TRANSPORT INSPECTOR Primary Care Provider [phone] Encounter Details Date Type Department Care Team (Late st Contact Info) Description 09/09/2022 Lab Requisition [facility] Pathology & Laboratory Medicine - [facility] [address] [place] [address] Outr Resulting Lab, Provider Social History Tobacco Use Types Packs/Day Years Used Date Smoking Tobacco: Former Cigarettes 1 20 0 04/23/1976 - 04/23/1996 Smokeless Tobacco: Never Comments:quit 20+ yr ago Alcohol Use Standard Drinks/Week Comments Yes 0 (1 standard drink = 0.6 oz pur e alcohol) very occasional Interpersonal Safety Answer Date Record ed Physically Hurt Never 06/02/2020 Verbally Threaten Not on file 06/02/2020 Sex and Gender Information Value Date Recorded Sex Assigned at Not on file Gender Identity Female 2021 11:19 EDT Sexual Orientation Not on file documented as of this encounter Functional Status Functional Status Response Date of Assess ment Are you deaf or do you have serious difficulty h earing? No 2021 Are you blind or do you have serious difficulty seeing, even when wearing glasses? No 2021 Do you have serious difficul ty walking or climbing stairs? (5 years old or older) No 2021 Do you have difficulty dress ing or bathing? (5 years old or older) No 2021 Because of a physical, menta l, or emotional condition, do you have difficulty doing errands alone such as visiting a doctor's office or shopping? (15 years old or older) No 2021 Cognitive Status Response Date of Assessm ent Because of a physical, menta l, or emotional condition, do you have serious difficulty concentrating, remembering, or making decisions? (5 years old or older) No 2021 documented as of this encounter Plan of Treatment Not on file documented as of this encounter Goals Goal Patient Goal Type Associated Problems Recent Progress Patient-Stated? Author Blood Pressure < 130/80 Blood Pressure Asthma 133/57(2020 14:39 EDT) No Emily Gibson LPN LDL < 130 Result Component Hyperlipidemia 143( 4 11:54 EDT) No Emily Gibson LPN documented as of this encounter Procedures Procedure Name Priority Date/Time Associated Diagnosis Comments ANTI NUCLEAR AB (GAYLE), IFA Routine 09/09/2022 12:25 EST documented in this encounter Results * (ABNORMAL) ANTI NUCLEAR AB (GAYLE), IFA (09/09/2022 12:25 EST) GAYLE Interpretation Positive(A) Negative 09/12/2022 13:45 EST [facility] GAYLE Titer and Pattern 1 1:80 Speckled 09/12/2022 13:45 EST [facility] Blood VENOUS BLOOD / Unknown 09/09/2022 12:25 EST 09/09/2022 21:32 EST Narrative [facility] - 09/12/2022 13:45 EST Results were obtained with the INOVA NOVA Lite HEp-2 GAYLE Kit by indirect immunofluorescence. Provider Outr Resulting Lab IMMUNOLOGY A ND SEROLOGY ORDERABLES [facility] [address] [place] [address] documented in this encounter Visit Diagnoses Not on filedocumented in this encounter Care Teams Validation Engineer Relationship Specialty Start Date End Date Elly Ling, HEIDE [address] [place] [address] PCP - General Family Medicine - Primary Care 05/30/22 documented as of this encounter
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
--- OUTSIDE RECORDS SUMMARY | 2024-06-24 02:15 | XMS_ITS | Clinical Summary ---
Author Organization [facility] Address [address] [place] [address] Care Team Providers Care Chief Inspector Name Role Phone Elly Ling POURED WALL FOREMAN Primary Care Provider [phone] Allergies Active Allergy Reactions Criticality Noted Date [...] bowel syndrome),GERD (gastroesophageal reflux disease) Instill 1 [place] into both nostrils daily. 1 Bottle 5 [...] colitis 04/18/2021 DM2 (diabetes mellitus, type 2) ([facility]) 2020 Enterococcus UTI 04/18/2021 Hypomagnesemia 04/18/2021 Hypokalemia 04/18/2021 Hypophosphatemia 04/18/2021 Hemorrhoids 04/18/2021 Chronic pain syndrome 05/06/2014 Left knee DJD 04/21/2014 Pes anserinus bursitis of left knee 08/05/2013 Postoperative infection 07/17/2013 Endometrial cancer ([facility]) 07/10/2013 Overview: BRITTANY with BSO [...] Lumbosacral spondylosis without myelopathy 05/22 Hypercoagulable state ([facility]) 07/01/2010 Overview: right lower extremity DVT in the setting of childbirth, 1983 a. Thrombosis testing 03/25/2010, antithrombin function 88 , cardiolipin antibodies IgG, IgM negative, protein C 116, D-dimer less than 200, dilute viper venom time 32.8. Factor VIII 110, factor V Leiden negative, prothrombin gene [id number] negative, PTT 32. Protein S 118,?? b.?? [...] SQ/IM 03/10/2010,12/24/2004 Tdap Vaccine =>8YO IM 12/03/2012 Surgical History Surgery Date Site/Laterality Comments APPENDECTOMY HERNIA REPAIR CARPAL TUNNEL RELEASE 22 years ago right endoscopic by dr. Hamilton KNEE SURGERY right JOINT REPLACEMENT 04/15/2010 Right TKR ([facility]) COLONOSCOPY 2010 BRITTANY AND BSO 06/11/2013 Medical History Medical History Date Comments Fibromyalgia Obesity Asthma Depression Anxiety GERD (gastroesophageal reflux disease) Fibromyalgia confirmed 1979,1982 2 vaginal de liveries Lung disease Complication of anesthesia respi ratory IBS (irritable bowel syndrome) Hypertension Lung disease IBS (irritable bowel syndrome) Factor PI Arthritis osteoarthritis, psoriatic arthritis Hyperlipidemia Constipation Cancer ([facility]) DM2 (diabetes mellitus, type 2) ([facility]) 04/18/2021 Family History Medical History Relation Comments High Blood Pressure Father High Cholesterol Father Diabetes Mother Relation Status Comments Brother Alive peptic ulcer dis ease Father Alive peripheral vascu lar ds Mother (Age 53) alcoholism,hep atitis Sister Alive Social History Tobacco Use Types Packs/Day Years [...] 11:19 EDT Sexual Orientation Not on file Obstetrics History Last Filed Vital Signs Vital Sign Reading [...] Body Mass Index 33.01 2021 1030 EDT Plan of Treatment Health Maintenance Due Date Last Done Comments [place] Prescription Monitor ing System 03/13/2014 Current Opioid Misuse Measurement 05/08/2014 Functional Assessment 05/08/2014 Opioid Informed Consent 05/08/2014 Pill Count 05/08/2014 Prescription Agreement 05/08/2014 Review Of Systems Adverse Effects 05/08/2014 Asthma Action Plan 02/05/2015 02/05/2014 Lung Function Test (Spirometry) 02/15/2015 4 Urine Drug Screen 04/22/2015 04/22/2014, , 12/23/2013, Additional history exists RSV Immunization ( o r 60+ Years) (1 - 1-dose 60+ series) 2021 COVID-19 Vaccine ( - 2022-2 4 season) 2023 Colonoscopy (Colon Cancer Screening) Discontinued 08/17/2011, 09/13/2004 Colorectal Cancer Screening Discontinued Hepatitis C Screen Completed 01/23/2013 Cologuard (Colon Cancer Screening) Discontinued FIT Test (Colon Cancer Screening) Discontinued Sigmoidoscopy (Colon Cancer Screening) Discontinued Goals Goal Patient Goal Type Associated Problems [...] PCR Routine 01/23/2013 12:44 EDT Psoriatic arthropathy ([facility]) Encounter for long-term (current) use of other medications COLONOSCOPY PROCEDURE Routine 08/17/2011 from Last 3 Months or Most Recently Relevant to Health Maintenance Results * DRUG SCREEN 6 (04/22/2014 12:47 EDT) Amphetamine Screen, Urine Negative screen. [facility] Comment: Confirmation testing available upon request. Suitable for medical purposes only. Will not detect all drugs within class. Cutoff = 1000 ng/ml Specimen type is urine. Barbiturate Screen, Urine Negative screen. [facility] Comment: Confirmation testing available upon request. Suitable for medical purposes only. Will not detect all drugs within class. Cutoff = 300 ng/ml Specimen type is urine. Benzodiazepine Screen, Urine Negative screen. [facility] Comment: Confirmation testing available upon request. [...] Ur Presumptive positive, interpret with caution. [facility] Comment: Confirmation testing available upon request. Suitable for medical purposes only. Will not detect all drugs within class. Cutoff = 300 ng/ml Assay less sensitive to oxycodone and metabolites. Assay does not detect methadone. Specimen type is urine. Cocaine Metabolites, Ur Negative screen. [facility] Comment: Confirmation testing available upon request. Suitable for medical purposes only. Will not detect all drugs within class. Cutoff = 300 ng/ml Specimen type is urine. Urine specimen (specimen) URINE / Unknown 04/22/2014 12:47 EDT 04/22/2014 18:13 EDT Remedios Mehta MD URINALYSIS ORDERA BLES Performing Organization Address [facility] de Phone Number [facility] [address] [place] [address] * HEPATITIS C ANTIBODY (01/23/2013 12:44 EDT) Hepatitis C Ab Negative [facility] Comment:Reference Range: Neg ative Blood specimen (specimen) 01/23/2013 12:44 EDT 01/23/2013 13:08 EDT Yovnaa Callejas MD CHEMISTRY & BLOO D GAS ORDERABLES Performing Organization Address [facility] de Phone Number [facility] [address] [place] [address] * COLONOSCOPY (08/17/2011) Colonoscopy wnl POINT OF CARE Colonoscopy, External POINT OF CARE Anatomical Region Laterality Modality Endoscopy Historical Provider GI PROCEDURE ARNOLDO TREJO from Last 3 Months or Most Recently Relevant to Health Maintenance Advance Directives For more information, please contact: [phone] Documents on File Type Date Recorded Patient [employer] Mechanical Expl anation Advance Directive 06/11/2013 7:07 * [...] Comments 04/15/2010 16:54 04/20/2010 18:39 Care Teams Chief Inspector Relationship Specialty Start Date End Date Elly Ling NP [address] [place] [address] PCP - General Family Medicine - Primary Care 05/30/22
--- OUTSIDE RECORDS SUMMARY | 2024-06-24 02:16 | XMS_ITS | Encounter Summary ---
Author Organization [facility] Address [address] [place] [address] Care Team Providers Care It Sales Executive Name Role Phone Remedios Mehta MD Primary Care Provider [phone] Encounter Details Date Type Department Care Team (Late st Contact Info) Description 11/06/[address] [id number] Emily Gibson LPN Social History Tobacco Use Types Packs/Day Years Used Date Smoking Tobacco: Former Cigarettes 1 20 0 04/23/1976 - 04/23/1996 Smokeless Tobacco: Never Comments:quit 20+ yr ago Alcohol Use Standard Drinks/Week Comments Yes 0 (1 standard drink = 0.6 oz pur e alcohol) very occasional Sex and Gender Information Value Date Recorded Sex Assigned at Not on file Gender Identity Female 2021 11:19 EDT Sexual Orientation Not on file documented as of this encounter Functional Status Cognitive Status Response Date of Assessm ent Because of a physical, menta l, or emotional condition, do you have serious difficulty concentrating, remembering, or making decisions? (5 years old or older) Yes 07/17/2013 documented as of this encounter Plan of Treatment Not on file documented as of this encounter Goals Goal Patient Goal Type Associated Problems Recent Progress Patient-Stated? Author Blood Pressure < 130/80 Blood Pressure Asthma 133/57(2020 14:39 EDT) No Emily Gibson LPN LDL < 130 Result Component Hyperlipidemia 143( 4 11:54 EDT) No Emily Gibson, DANIEL documented as of this encounter Procedures Procedure Name Priority Date/Time Associated Diagnosis Comments COLONOSCOPY PROCEDURE Routine 08/17/2011 documented in this encounter Results * COLONOSCOPY (08/17/2011) Colonoscopy wnl POINT OF CARE Colonoscopy, External POINT OF CARE Anatomical Region Laterality Modality Endoscopy Historical Provider GI PROCEDURE ARNOLDO TREJO documented in this encounter Visit Diagnoses Not on filedocumented in this encounter Care Teams It Sales Executive Relationship Specialty Start Date End Date Remedios Mehta MD [address] [place] [phone] PCP - General 02/19/09 01/04/15 documented as of this encounter
--- OUTSIDE RECORDS SUMMARY | 2024-06-24 02:16 | XMS_ITS | Encounter Summary ---
Author Organization [facility] Address [address] [place] [address] Care Team Providers Care Industrial Relations Director Name Role Phone Remedios Mehta MD Primary Care Provider [phone] Reason for Visit * Reason Comments Other Encounter Details Date Type Department Care Team (Late st Contact Info) Description 05/10/[address] [address] Remedios Mehta MD [address] [place] [phone] Other Social History Tobacco Use Types Packs/Day Years [...] Yes 07/17/2013 documented as of this encounter Ordered Prescriptions Prescription Sig Dispensed Refills Start Date End Da te traZODone (DESYREL) 100 mg tablet Take 0.5-1 Tabs by mouth at bedtime as needed for Sleep. 56 Tab 1 05/12/2014 documented in this encounter Plan of Treatment Not on file documented as of this encounter Goals Goal Patient Goal Type Associated Problems Recent Progress Patient-Stated? Author Blood Pressure < 130/80 Blood Pressure Asthma 133/57(2020 14:39 EDT) No Emily Gibson LPN LDL < 130 Result Component Hyperlipidemia 143( 4 11:54 EDT) No Emily Gibson LPN documented as of this encounter Visit Diagnoses Not on filedocumented in this encounter Discontinued Medications Medication Sig Discontinue Reason Start Date End Da te traZODone (DESYREL) 100 mg tablet Take 1-2 Tabs by mouth at bedtime as needed for Sleep. Reorder 01/13/2014 05/10/2014 documented as of this encounter Care Teams Industrial Relations Director Relationship Specialty Start Date End Date Remedios Mehta MD [address] [place] [phone] PCP - General 02/19/09 01/04/15 documented as of this encounter
--- OUTSIDE RECORDS SUMMARY | 2024-06-24 02:16 | XMS_ITS | Encounter Summary ---
Author Organization [facility] Address [address] [place] [address] Care Team Providers Care Operations Manager Station Name Role Phone Remedios Mehta MD Primary Care Provider [phone] Encounter Details Date Type Department Care Team (Late st Contact Info) Description 04/22/[address] [id number] German Ivory PA-C [address] [place] [address] [place] [id number] Social History Tobacco Use Types Packs/Day Years [...] on filedocumented in this encounter Care Teams Operations Manager Station Relationship Specialty Start Date End Date Remedios Mehta MD [address] [place] [phone] PCP - General 02/19/09 01/04/15 documented as of this encounter
--- OUTSIDE RECORDS SUMMARY | 2024-06-24 02:16 | XMS_ITS | Encounter Summary ---
Author Organization [facility] Address [address] [place] [address] Care Team Providers Care Well Services Operator Name Role Phone Remedios Mehta MD Primary Care Provider [phone] Reason for Visit * Reason Onset Date Comments Paperwork request 05/01/2014 Encounter Details Date Type Department Care Team (Late st Contact Info) Description 05/01/[address] [phone] Emily Gibson LPN Paperwork request Social History Tobacco Use Types Packs/Day Years [...] Yes 07/17/2013 documented as of this encounter Miscellaneous Notes * Telephone Encounter - Emily Gibson LPN - 05/01/2014 0856 EDT Paperwork for disablity was mailed as requested Emily Gibson LPN documented in this encounter Plan of Treatment [...] on filedocumented in this encounter Care Teams Well Services Operator Relationship Specialty Start Date End Date Remedios Mehta MD [address] [place] [phone] PCP - General 02/19/09 01/04/15 documented as of this encounter
--- OUTSIDE RECORDS SUMMARY | 2024-06-24 02:16 | XMS_ITS | Encounter Summary ---
Author Organization [facility] Address [address] [place] [address] Care Team Providers Care Hub Lead Name Role Phone Remedios Mehta MD Primary Care Provider [phone] Reason for Visit * Reason Onset Date Comments Results 05/09/2014 Encounter Details Date Type Department Care Team (Late st Contact Info) Description 05/09/2014 Telephone [facility] Interventional Pain [address] [place], [place] [phone] Jaimie Byrne RN Results Social History Tobacco Use Types Packs/Day Years [...] encounter Miscellaneous Notes * Telephone Encounter - Jaimie Byrne RN - 05/12/2014 1128 EDT RN called patient and left a message to call with hours and % of relief. * Telephone Encounter - Ailyn Rodriguez RN - 05/09/2014 1357 EDT Message left for the pt. To call back with hours/percentage of relief s/p facets done on 04/22. * Telephone Encounter - Jaimie Byrne RN - 05/09/2014 0902 EDT Message copied by JAIMIE BYRNE on MonMay 09, 2014 0902 ------ Message from: AILYN RODRIGUEZ Created: MonApr 22, 2014 1610 Regarding: results Left facet L3-4 ------ documented in this encounter Plan of Treatment [...] on filedocumented in this encounter Care Teams Hub Lead Relationship Specialty Start Date End Date Remedios Mehta MD [address] [place] [phone] PCP - General 02/19/09 01/04/15 documented as of this encounter
--- OUTSIDE RECORDS SUMMARY | 2024-06-24 02:16 | XMS_ITS | Encounter Summary ---
Author Organization [facility] Address [address] [place] [address] Care Team Providers Care Wax Machine Operator Name Role Phone Remedios Mehta MD Primary Care Provider [phone] Reason for Visit * Reason Comments Chronic Pain Encounter Details Date Type Department Care Team (Late st Contact Info) Description 04/22/2014 13:30 EDT Nurse Only [address] [address] Unknown, Provider, Viyk Britt [address] [place] [phone] Nurse, [facility] Family, RN Pain of right leg (Primary Dx) Social History Tobacco Use Types Packs/Day Years [...] Yes 07/17/2013 documented as of this encounter Discharge Diagnoses Diagnosis 729.5 PAIN IN LIMB[ICD-9-CM] documented in this encounter Progress Notes * Luisa Guaman LPN - 04/22/2014 1259 EDT Pt in to give urine specimen for Opiate confirmation and Urine drug sceen 6. Pt states she is out of her pain meds as of today. She took only 1 pill on Monday, Monday and Monday to stretch them out. I informed the RN's and they will be in communication with German Miranda documented in this encounter Plan of Treatment Not on file documented as of this encounter Goals Goal Patient Goal Type Associated Problems Recent Progress Patient-Stated? Author Blood Pressure < 130/80 Blood Pressure Asthma 133/57(2020 14:39 EDT) No Emily Gibson LPN LDL < 130 Result Component Hyperlipidemia 143( 4 11:54 EDT) No Emily Gibson LPN documented as of this encounter Visit Diagnoses Diagnosis Pain of right leg- Primary Pain in limb documented in this encounter Care Teams Wax Machine Operator Relationship Specialty Start Date End Date Remedios Mehta MD [address] [place] [phone] PCP - General 02/19/09 01/04/15 documented as of this encounter
--- OUTSIDE RECORDS SUMMARY | 2024-06-24 02:16 | XMS_ITS | Encounter Summary ---
Author Organization [facility] Address [address] [place] [address] Care Team Providers Care Cattle Farmer Name Role Phone German Garzon PA-C Primary Care Provider [phone] Encounter Details Date Type Department Care Team (Late st Contact Info) Description 04/15/2021 Transcribe Orders [facility] Adult Primary Care - [address] [place], [place] [phone] Shirley Birmingham MD [address] [facility] [address] [place] [address] Health examination in population survey (Primary Dx) Social History Tobacco Use Types [...] 11:19 EDT Sexual Orientation Not on file COVID-19 Exposure Response Date Recorded In the last month, have you been in contact with someone who was confirmed or suspected to have Coronavirus / COVID-19? No / Unsure 2021 10:30 EDT documented as of this encounter Functional Status [...] as of this encounter Visit Diagnoses Diagnosis Health examination in population survey- Primary documented in this encounter Additional Health Concerns Infection Onset Date Last Indicated Resolved Time Rule-Out C. difficile 2021 04/16/20212020 13:40 EDT C. difficile 04/16/2021 04/16/2021 06/15/2021 22:1 5 EDT documented as of this encounter Care Teams Cattle Farmer Relationship Specialty Start Date End Date German Garzon PA-C [address] [place] [phone] PCP - General 09/28/18 05/29/22 documented as of this encounter
--- OUTSIDE RECORDS SUMMARY | 2024-06-24 02:16 | XMS_ITS | Encounter Summary ---
Author Organization [facility] Address [address] [place] [address] Care Team Providers Care Motel Manager Name Role Phone Unavailable Primary Care Provider Unavailabl e Reason for Visit * Reason Comments Abdominal Pain Pt with hx of right hemicolectomy, now has left sided abdominal pain, +vomiting and diarrhea. Pt rates pain 04/08. Afebrile. Encounter Details Date Type Department Care Team (Late st Contact Info) Description 09/24/2018 14:04 EST - 09/24/2018 21:08 EST Emergency [facility] Emergency Department - [address] [id number] Aldo Mueller PA-C [address] [phone] Willis Horner DO [address] [phone] Edmund Kim, DEIDRE [address] [place], [place] [id number] Emergency, MD Anya Colitis, acute (Primary Dx) Discharge Disposition: Home or Self Care Social History Tobacco Use Types Packs/Day Years [...] on file documented as of this encounter Last Filed Vital Signs Vital Sign Reading Time Taken Comments Blood Pressure 138/71 09/24/20182106 EST Pulse 81 09/24/20182106 EST Temperature 36.9 ??C (98.4 ??F) 09/24/20182106 EST Respiratory Rate 15 09/24/20182106 EST Oxygen Saturation 98% 09/24/2018 192 EST Inhaled Oxygen Concentration - - Weight - - Height 152.4 cm (5') 09/24/2018 1425 EST Body Mass Index - - documented in this encounter Functional Status Cognitive Status Response Date of Assessm ent Because of a physical, menta l, or emotional condition, do you have serious difficulty concentrating, remembering, or making decisions? (5 years old or older) Yes 07/17/2013 documented as of this encounter Discharge Diagnoses Diagnosis K52.9 Noninfective gastroenteritis and colitis, unspecified-K52.9[ICD-10-CM] R11.0 Nausea-R11.0[ICD-10-CM] R10.13 Epigastric pain-R10.13[ICD-10-CM] R10.12 Left upper quadrant pain-R10.12[ICD-10-CM] R10.32 Left lower quadrant pain-R10.32[ICD-10-CM] E80.7 DISORDER OF BILIRUBIN METABOLISM, UNSPECIFIED[ICD-10-CM] K21.9 Gastro-esophageal reflux disease without esophagitis-K21.9[ICD-10-CM] J45.909 Unspecified asthma, uncomplicated-J45.909[ICD-10-CM] E78.5 Hyperlipidemia, unspecified-E78.5[ICD-10-CM] E11.9 Type 2 diabetes mellitus without complications-E11.9[ICD-10-CM] Z79.84 terminal 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 I have prescribed you ciprofloxacin and Flagyl to be taken to help improve your symptoms. Follow-up here or with your primary care physician in 1 week for further evaluation. Return to the Emergency Department (ED) if your condition worsens, does not improve as expected, orfor any other concerns. Specifically return if you have new or uncontrolled pain, worsening fever, difficulty breathing, vomiting, or are unable to drink fluids. * Attachments The following attachments cannot be sent through Care Everywhere. * COLITIS (JAPANESE) documented in this encounter Medications at Time of Discharge Medication Sig Dispensed Refills Start Date End Date acetaminophen (TYLENOL) 325 mg tablet Take 2 Tabs by mouth every 6 hours as needed for Pain. 224 Tab 3 03/17/2014 albuterol (PROVENTIL HFA, VENTOLIN HFA) 90 mcg/actuation inhaler Inhale 2 Puffs as directed every 4 hours. 1 Inhaler 1 08/25/2012 albuterol (PROVENTIL) 2.5 mg /3 mL (0.083 %) nebulizer solution Take 3 mL by nebulization every 4 hours as needed for Wheezing. 1 Box 1 08/25/2012 budesonide-formoterol HFA (SYMBICORT) 80-4.5 mcg/actuation HFA Aerosol Inhaler inhalerIndications:Asthm a,Hyperlipidemia,Need for Tdap vaccination,Abdominal discomfort,IBS (irritable bowel syndrome),GERD (gastroesophageal reflux disease) Inhale 2 Puffs as directed 2 times daily. 1 Inhaler 5 06/05/2013 CALCIUM CARBONATE/VITAMIN D3 (CALCIUM WITH VITAMIN D ORAL) Take by mouth daily. docusate sodium (COLACE) 100 mg capsule Take 1 Cap by mouth 2 times daily as needed for Constipation. 06/14/2013 fluocinonide (LIDEX) 0.05 % cream Apply to affect area(s) as directed. 60 g 3 06/05/2013 fluticasone (FLONASE) 50 mcg/actuation nasal sprayIndications:Asthma, Hyperlipidemia,Need for Tdap vaccination,Abdominal discomfort,IBS (irritable bowel syndrome),GERD (gastroesophageal reflux disease) Instill 1 [place] into both nostrils daily. 1 Bottle 5 06/05/2013 loratadine (CLARITIN) 10 mg tablet Take 1 Tab by mouth daily. 90 Tab 1 08/21/2013 lovastatin (MEVACOR) 20 mg tabletIndications:Hyperl ipidemia Take 1 Tab by mouth daily. 90 Tab 4 12/23/2013 lubiprostone (AMITIZA) 24 mcg capsule Take 24 mcg by mouth as needed. 09/27/2010 MULTIVITAMINS (MULTIVITAMIN ORAL) Take 1 Tab by mouth daily. pregabalin (LYRICA) 50 mg capsule Take 1 Cap by mouth 3 times daily. 90 Cap 3 03/06/2014 traZODone (DESYREL) 100 mg tablet Take 1 Tab by mouth at bedtime for 10 days. 10 Tab 09/24/2018 traZODone (DESYREL) 100 mg tablet Take 0.5-1 Tabs by mouth at bedtime as needed for Sleep. 56 Tab 1 05/12/2014 busPIRone (BUSPAR) 5 mg tablet Take 1.5 Tabs by mouth 2 times daily for 10 days. 30 Tab 09/24/2018 10/04/2018 ciprofloxacin HCl (CIPRO) 500 mg tablet Take 1 Tab by mouth every 12 hours for 10 days. 20 Tab 09/24/2018 10/04/2018 DULoxetine (CYMBALTA) 30 mg delayed release capsule Take 2 Caps by mouth daily for 10 days. 20 Cap 09/24/2018 10/04/2018 Fenofibrate Nanocrystallized (TRICOR) 145 mg tablet Take 1 Tab by mouth daily for 10 days. 10 Tab 09/24/2018 10/04/2018 ferrous gluconate (FERGON) 324 mg (38 mg iron) tablet Take 1 Tab by mouth 2 times daily with breakfast and dinner. 60 Tab 4 07/12/2013 04/18/2021 ketoconazole (NIZORAL) 2 % creamIndications:Rash Apply topically daily. Apply to affect area(s) as directed. 1 Tube 1 02/17/2010 04/18/2021 lovastatin (MEVACOR) 20 mg tablet Take 1 Tab by mouth daily for 10 days. 10 Tab 09/24/2018 10/04/2018 metFORMIN (GLUCOPHAGE) 500 mg tablet Take 1 Tab by mouth 2 times daily for 10 days. 20 Tab 09/24/2018 10/04/2018 metoprolol XL (TOPROL-XL) 25 mg tablet Take 1 Tab by mouth daily for 10 days. 10 Tab 09/24/2018 10/04/2018 metroNIDAZOLE (FLAGYL) 500 mg tablet Take 1 Tab by mouth every 8 hours for 10 days. 30 Tab 09/24/2018 10/04/2018 nabumetone (RELAFEN) 500 mg tablet Take 2 Tabs by mouth daily 2 tabs bid with food.. 60 Tab 2 04/18/2014 04/18/2021 omeprazole (PRILOSEC) 20 mg capsule Take 1 Cap by mouth 2 times daily for 10 days. 20 Cap 09/24/2018 10/04/2018 polyethylene glycol (GLYCOLAX) 17 gram/dose powder Take 17 g by mouth daily. 1 Bottle 0 10/20/2014 04/18/2021 zafirlukast (ACCOLATE) 20 mg tablet Take 1 Tab by mouth 2 times daily. 180 Tab 5 06/05/2013 04/18/2021 documented as of this encounter Ordered Prescriptions Prescription Sig Dispensed Refills Start Date End Da te traZODone (DESYREL) 100 mg tablet Take 1 Tab by mouth at bedtime for 10 days. 10 Tab 09/24/2018 metroNIDAZOLE (FLAGYL) 500 mg tablet Take 1 Tab by mouth every 8 hours for 10 days. 30 Tab 09/24/2018 10/04/2018 ciprofloxacin HCl (CIPRO) 500 mg tablet Take 1 Tab by mouth every 12 hours for 10 days. 20 Tab 09/24/2018 10/04/2018 omeprazole (PRILOSEC) 20 mg capsule Take 1 Cap by mouth 2 times daily for 10 days. 20 Cap 09/24/2018 10/04/2018 metoprolol XL (TOPROL-XL) 25 mg tablet Take 1 Tab by mouth daily for 10 days. 10 Tab 09/24/2018 10/04/2018 busPIRone (BUSPAR) 5 mg tablet Take 1.5 Tabs by mouth 2 times daily for 10 days. 30 Tab 09/24/2018 10/04/2018 metFORMIN (GLUCOPHAGE) 500 mg tablet Take 1 Tab by mouth 2 times daily for 10 days. 20 Tab 09/24/2018 10/04/2018 Fenofibrate Nanocrystallized (TRICOR) 145 mg tablet Take 1 Tab by mouth daily for 10 days. 10 Tab 09/24/2018 10/04/2018 lovastatin (MEVACOR) 20 mg tablet Take 1 Tab by mouth daily for 10 days. 10 Tab 09/24/2018 10/04/2018 DULoxetine (CYMBALTA) 30 mg delayed release capsule Take 2 Caps by mouth daily for 10 days. 20 Cap 09/24/2018 10/04/2018 documented in this encounter Discharge Disposition Disposition Code Departure Means Destination Home or Self Care Car Home documented in this encounter ED Notes * Edmund Kim PA - 09/24/20182107 EST DOS: 09/24/2018 Chief Complaint Patient presents with ??? Abdominal Pain Pt with hx of right hemicolectomy, now has left sided abdominal pain, +vomiting and diarrhea. Pt rates pain 6/10. Afebrile. HPI The patient is a 58 y.o. female who presents today with Abdominal Pain (Pt with hx of right hemicolectomy, now has left sided abdominal pain, +vomiting and diarrhea. Pt rates pain 6/10. Afebrile. ) HPI Review of Systems Review of Systems Allergies Allergen Reactions ??? Latex, Natural Rubber Hives ??? Adhesive Rash Adhesive tape and band aids, paper tape ok ??? Aspirin Shortness Of Breath ??? Chocolate Flavor Hives Anything with chocolate gives rash ??? Codeine Shortness Of Breath ??? Egg Derived Hives ??? Other - See Comments Dust mites, mold, pollen, SOB ??? Penicillins Shortness Of Breath ??? Sulfa (Sulfonamide Antibiotics) Hives ??? Soy Constipation ??? Wheat Containing Prod Constipation Vital Signs Vitals Reassessment?: Yes Temp: 36.9 ??C (98.4 ??F) Temp src: Oral Pulse: 81 Resp: 15 SpO2: 98 % BP: 138/71 BP MAP: 80 mm Hg BP Device: BP Machine Patient Position: Sitting BP Cuff Location: Right arm O2 Device: None (Room air) Physical Exam RESULTS EKG orders: None Radiology orders: CT ABDOMEN, PELVIS W CONTRAST Imaging Reviewed. I have independently reviewed the images. Results are notable for Colitis. Procedures ED COURSE patient here visiting from [place] secondary to a and has had inability to go back to [place] secondary to her abdominal pain. She is also run out of her medication and despite her evaluation for abdominal pain which likely is due to colitis she is requesting a refill of her 8 or 9 different medications. She is in no apparent distress at time of discharge her CT is consistent with her exam. I I have refilled her prescriptions for 10 days and requested that she follow-up with on your [place] in this week for further evaluation. A medical screening exam was performed. Final diagnoses: Colitis, acute DISPOSITION: Discharged The patient's pain was managed to an adequate level weighing risk vs. benefit of further medications. Upon departure from the Emergency Department, the patient's pain was 3 on a zero to ten scale. Any further pain treatment will be at the discretion of the provider following up with the patient based on their clinical assessment. Condition at departure from the Emergency Department: Improved PCP: To Be Added Waiting MDM Tre Horner was available for supervision. 09/27/2018 12:45 No flowsheet data found. * Karo Hardy RN - 09/24/20181999 EST Pt requesting Naprosyn after refusing Tylenol. Pt states she does not have NSAID allergy as previously charted. * Karo Hardy RN - 09/24/2018 1906 EST Assumed care of pt from previous RN. Pt resting quietly, dispo pending. * Viky Ghosh RN - 09/24/2018 1814 EST Blood drawn via saline lock per protocol, blue, red, green and purple tube(s) sent to lab per order. * Aldo Mueller PA-C - 09/24/2018 1720 EST DOS: 09/24/2018 Chief Complaint Patient presents with ??? Abdominal Pain Pt with hx of right hemicolectomy, now has left sided abdominal pain, +vomiting and diarrhea. Pt rates pain 6/10. Afebrile. HPI The patient is a 58 y.o. female who presents today with Abdominal Pain (Pt with hx of right hemicolectomy, now has left sided abdominal pain, +vomiting and diarrhea. Pt rates pain 6/10. Afebrile. ) HPI 58-year-old female with history of asthma, diabetes on metformin which she has not been taking in the last 5+ months, hyperlipidemia, bowel obstruction with hemicolectomy 2 years ago performed in [place], and GERD presents with acute onset of left-sided abdominal pain. Patient states the pain has been worsening over the last week. States when she eats she feels like the left side of her abdomen is distended and she is having more pain and nausea. Has not vomiting. Describes multiple episodes of very small amounts of watery diarrhea. States that she has not been able to eat anything today secondary to pain and nausea. She had a few sips of fluids this morning that did not settle well. States she is not taking any pain for this. States that she recently moved from [facility] and has been not been taking any medications since. States that she has diabetes he has not checked her sugars or taken metformin in 5+ months. Patient states they have otherwise been healthy denying any headache, lightheadedness, dizziness, cough, ear pain, eye pain, fever, vomiting, neck pain, back pain, chest pain, shortness of breath, dysuria or difficulty ambulating. Review of Systems Review of Systems Constitutional: Negative for chills and fever. HENT: Negative for ear pain. Eyes: Negative for pain. Respiratory: Negative for cough and shortness of breath. Cardiovascular: Negative for chest pain. Gastrointestinal: Positive for abdominal pain, diarrhea and nausea. Negative for blood in stool, constipation and vomiting. Genitourinary: Negative for difficulty urinating, dysuria, flank pain, frequency, urgency, vaginal bleeding and vaginal discharge. Musculoskeletal: Negative for back pain and neck pain. Neurological: Negative for dizziness, light-headedness and headaches. No difficulty ambulating Allergies Allergen Reactions ??? Latex, Natural Rubber Hives ??? Adhesive Rash Adhesive tape and band aids, paper tape ok ??? Aspirin Shortness Of Breath ??? Chocolate Flavor Hives Anything with chocolate gives rash ??? Codeine Shortness Of Breath ??? Egg Derived Hives ??? Nsaids (Non-Steroidal Anti-Inflammatory Drug) Other (See Comments) Avoids ASA/NSAID's, makes her asthma worse ??? Other - See Comments Dust mites, mold, pollen, SOB ??? Penicillins Shortness Of Breath ??? Sulfa (Sulfonamide Antibiotics) Hives ??? Soy Constipation ??? Wheat Containing Prod Constipation Vital Signs Temp: 36.8 ??C (98.2 ??F) Temp src: Temporal Pulse: 80 Resp: 16 SpO2: 100 % BP: (!) 165/75 O2 Device: None (Room air) Physical Exam Constitutional: She is oriented to person, place, and time. She appears well- developed and well-nourished. No distress. Eyes: Conjunctivae and EOM are normal. Pupils are equal, round, and reactive to light. Neck: Normal range of motion. Neck supple. Cardiovascular: Normal rate, regular rhythm and normal heart sounds. Pulmonary/Chest: Effort normal and breath sounds normal. No respiratory distress. Abdominal: Soft. There is tenderness in the epigastric area, left upper quadrant and left lower quadrant. There is no rigidity, no rebound, no guarding, no CVA tenderness, no tenderness at McBurney'spoint and negative Lozoya's sign. Musculoskeletal: Normal range of motion. Neurological: She is alert and oriented to person, place, and time. Skin: Skin is warm and dry. Nursing note and vitals reviewed. RESULTS EKG orders: None Radiology orders: CT ABDOMEN, PELVIS W CONTRAST Imaging pending at sign out. Procedures ED COURSE A medical screening exam was performed. 58-year-old female with history of asthma, diabetes on metformin which she has not been taking in the last 5+ months, hyperlipidemia, bowel obstruction with hemicolectomy 2 years ago performed in [place], and GERD presents with acute onset of left-sided abdominal pain. Physical exam as noted above. CT scan and labs ordered. Case discussed with Dr. Tre Horner. Acetaminophen given for pain. Patient had labs showing Total bilirubin 1.9. Patient had pain controlled on re-evaluation. Signed out to oncoming Edmund SIFUENTES, for continuation of care with CT scan pending. Final diagnoses: None DISPOSITION: No disposition on file The patient's pain was managed to an adequate level weighing risk vs. benefit of further medications. Upon sign out from the Emergency Department, the patient's pain was a 3 on a zero to ten scale. Any further pain treatment will be at the discretion of the provider following up with the patient based on their clinical assessment. PCP: Provider None MDM Number of Diagnoses or Management Options Amount and/or Complexity of Data Reviewed Review and summarize past medical records: yes Tre Horner was available for supervision. 09/24/2018 17:20 No flowsheet data found. documented in this encounter Plan of Treatment [...] Procedure Name Priority Date/Time Associated Diagnosis Comments CT ABDOMEN, PELVIS W CONTRAST STAT 09/24/2018 18:51 EST HOLD GREEN TOP STAT 09/24/2018 17:25 EST HOLD BLUE TOP STAT 09/24/2018 17:25 EST COMPLETE BLOOD COUNT AND DIFFERENTIAL STAT 09/24/2018 17:25 EST LIPASE STAT 09/24/2018 17:25 EST HEPATIC FUNCTION PANEL (ALB,ALK PHOS,ALT,AST,DBIL,TOT YELENA,TOT PROT) STAT 09/24/2018 17:25 EST BASIC METABOLIC PANEL (BMP) STAT 09/24/2018 17:25 EST documented in this encounter Results * CT ABDOMEN, PELVIS W CONTRAST (09/24/2018 18:51 EST) Anatomical Region Laterality Modality Other 09/24/2018 18:5 1 EST 09/24/2018 20:12 EST Narrative 09/24/2018 20:[address] ABDOMEN, PELVIS W CONTRAST ??09/24/2018 6:51 PM Signs and Symptoms/Comments: ?? left sided abd pain, diarrhea, Hx hemicolectomy Technique: CT of the abdomen and pelvis was performed following the administration intravenous contrast; coronal and sagittal multiplanar reconstructions generated. Comparison: CT abdomen/pelvis 07/17/2013. Findings: Lower chest: A small calcified granuloma seen in the right lung base. A noncalcified 3 mm nodule is seen in the right lung, axial 59, was also present on prior, benign. Hepatobiliary: There is diffuse decreased attenuation of the liver consistent with hepatic steatosis. An unchanged left hepatic cyst is again seen. Spleen, pancreas, adrenal glands: No abnormalities. Kidneys, ureters, bladder: The kidneys enhance symmetrically with no focal lesion identified. No hydronephrosis or nephrolithiasis. Uterus, ovaries: Uterus is unremarkable. Multiple tubal ligation clips are again noted. Bowel: There is unremarkable anastomosis ileocecal region.. There is trace stranding adjacent to the descending colon, see axial 164 and adjacent images, the descending colon is relatively featureless, nondistended, coronal 85. Bowel enhancement preserved. No bowel obstruction. Sigmoid is redundant, no significant diverticular disease. Peritoneal cavity / Subperitoneal space: No free fluid or free air identified. Lymphovascular: No pathologically enlarged lymph nodes identified. Scattered atherosclerotic calcifications are seen in the normal caliber abdominal aorta and its major branches. Abdominal wall: There is a 5.6 x 3.6 x 5.5 cm fluid collection in the mid lower anterior abdomen near the midline surgical scar, uniformly 40 Hounsfield units. No significant adjacent fat stranding is identified. No internal gas. No bowel containing hernia is seen. Musculoskeletal: No suspicious osseous lesion identified. Mild degenerative changes are seen in the thoracolumbar spine. Impression: 1. ??Fluid collection in the lower mid abdomen measuring up to 5.6 cm likely represents a seroma as it is adjacent to midline surgical scar and there is no significant adjacent fat stranding. However, recommend correlation for possible infectious process. 2. ??Trace stranding adjacent to the relatively featureless nondistended descending colon, can be due to sequela of mild colitis given history. 3. ??Hepatic steatosis. 4. ??Unchanged hepatic cyst. 5. ??Mild atherosclerosis. 6. ??Prior right hemicolectomy. No bowel obstruction. I have personally reviewed the images and the above interpretation and agree with the findings. Procedure Note Yonathan Obregon MD - 09/24/2018 CT ABDOMEN, PELVIS W CONTRAST 09/24/2018 6:51 PM Signs and Symptoms/Comments: left sided abd pain, diarrhea, Hx hemicolectomy Technique: CT of the abdomen and pelvis was performed following the administration intravenous contrast; coronal and sagittal multiplanar reconstructions generated. Comparison: CT abdomen/pelvis 07/17/2013. Findings: Lower chest: A small calcified granuloma seen in the right lung base. A noncalcified 3 mm nodule is seen in the right lung, axial 59, was also present on prior, benign. Hepatobiliary: There is diffuse decreased attenuation of the liver consistent with hepatic steatosis. An unchanged left hepatic cyst is again seen. Spleen, pancreas, adrenal glands: No abnormalities. Kidneys, ureters, bladder: The kidneys enhance symmetrically with no focal lesion identified. No hydronephrosis or nephrolithiasis. Uterus, ovaries: Uterus is unremarkable. Multiple tubal ligation clips are again noted. Bowel: There is unremarkable anastomosis ileocecal region.. There is trace stranding adjacent to the descending colon, see axial 164 and adjacent images, the descending colon is relatively featureless, nondistended, coronal 85. Bowel enhancement preserved. No bowel obstruction. Sigmoid is redundant, no significant diverticular disease. Peritoneal cavity / Subperitoneal space: No free fluid or free air identified. Lymphovascular: No pathologically enlarged lymph nodes identified. Scattered atherosclerotic calcifications are seen in the normal caliber abdominal aorta and its major branches. Abdominal wall: There is a 5.6 x 3.6 x 5.5 cm fluid collection in the mid lower anterior abdomen near the midline surgical scar, uniformly 40 Hounsfield units. No significant adjacent fat stranding is identified. No internal gas. No bowel containing hernia is seen. Musculoskeletal: No suspicious osseous lesion identified. Mild degenerative changes are seen in the thoracolumbar spine. Impression: 1. Fluid collection in the lower mid abdomen measuring up to 5.6 cm likely represents a seroma as it is adjacent to midline surgical scar and there is no significant adjacent fat stranding. However, recommend correlation for possible infectious process. 2. Trace stranding adjacent to the relatively featureless nondistended descending colon, can be due to sequela of mild colitis given history. 3. Hepatic steatosis. 4. Unchanged hepatic cyst. 5. Mild atherosclerosis. 6. Prior right hemicolectomy. No bowel obstruction. I have personally reviewed the images and the above interpretation and agree with the findings. Aldo Mueller PA-C IMG CT ORDERABLES * HOLD GREEN TOP (09/24/2018 17:25 EST) Hold Green Top Hold for further testing. Specimen will be held for 5 days. 09/24/2018 18:11 EST [facility] Blood specimen (specimen) BLOOD SPECIMEN / Unknown 09/24/2018 17:25 EST 09/24/2018 18:03 EST Aldo Mueller PA-C LAB INFO SERVICE AN D SUPPORT & PHONE RESULT Performing Organization Address [facility] Co de Phone Number [facility] [address] [place] [address] * HOLD BLUE TOP (09/24/2018 17:25 EST) Hold Blue Top Sample for coagulation will be discarded after 4 hours 09/24/2018 18:34 EST [facility] Blood specimen (specimen) BLOOD SPECIMEN / Unknown 09/24/2018 17:25 EST 09/24/2018 18:03 EST Aldo Mueller PA-C LAB INFO SERVICE AN D SUPPORT & PHONE RESULT Performing Organization Address [facility] Co de Phone Number [facility] [address] [place] [address] * LIPASE (09/24/2018 17:25 EST) Lipase 179 <251 U/L 09/24/2018 18:21 [facility] Blood specimen (specimen) BLOOD SPECIMEN / Unknown 09/24/2018 17:25 EST 09/24/2018 18:03 EST Aldo Mueller PA-C CHEMISTRY & BLOOD G ORDERABLES Performing Organization Address [facility]/ZIP Co de Phone Number [facility] [address] [place] [address] * BASIC METABOLIC PANEL (BMP) (09/24/2018 17:25 EST) Sodium 143 136 - 145 mEq/L 09/24/2018 18:21 [facility] Potassium 3.5 3.5 - 5.0 mEq/L 09/24/2018 18:21 [facility] Chloride 105 96 - 110 mEq/L 09/24/2018 18:21 [facility] CO2 29 22 - 32 mEq/L 09/24/2018 18:21 [facility] BUN 13 10 - 26 mg/dl 09/24/2018 18:21 [facility] Creatinine 0.81 0.52 - 1.04 mg/dl 09/24/2018 18:21 [facility] GFR, Calculated 81 >60 ml/min/1.7 3m2 09/24/2018 18:21 [facility] Comment: eGFR calculated using CKD-EPI equation for non Americans. Multiply eGFR by 1.16 for Americans. Calcium 9.7 8.5 - 10.5 mg/dl 09/24/2018 18:21 [facility] Calculated Calcium 9.1 8.5 - 10.5 mg/dl 09/24/2018 18:21 [facility] Glucose, Serum 86 70 - 100 mg/dl 09/24/2018 18:21 [facility] Fasting? Unknown 09/24/2018 18:21 [facility] Blood specimen (specimen) BLOOD SPECIMEN / Unknown 09/24/2018 17:25 EST 09/24/2018 18:03 EST Aldo Mueller PA-C CHEMISTRY & BLOOD G ORDERABLES [facility] [address] [place] [address] * (ABNORMAL) HEPATIC FUNCTION PANEL (ALB,ALK PHOS,ALT,AST,DBIL,TOT YELENA,TOT PROT) (09/24/2018 17:25 EST) Albumin 4.7 3.4 - 4.9 g/dl 09/24/2018 18:21 [facility] Total Protein 7.2 6.3 - 8.2 g/dl 09/24/2018 18:21 [facility] Total Alkaline Phosphatase 65 38 - 126 U/L 09/24/2018 18:21 [facility] ALT 28 <53 U/L 09/24/2018 18:21 [facility] AST 18 15 - 46 U/L 09/24/2018 18:21 [facility] Unconjugated Bilirubin 1.6(H) 0.0 - 1.1 mg/dl 09/24/2018 18:21 [facility] Conjugated Bilirubin 0.0 0.0 - 0.3 mg/dl 09/24/2018 18:21 [facility] Bilirubin, Total 1.9(H) <1.4 mg/dl 09/24/20 18 18:21 [facility] Blood specimen (specimen) BLOOD SPECIMEN / Unknown 09/24/2018 17:25 EST 09/24/2018 18:03 EST Aldo Mueller PA-C CHEMISTRY & BLOOD G ORDERABLES [facility] [address] [place] [address] * (ABNORMAL) COMPLETE BLOOD COUNT AND DIFFERENTIAL (09/24/2018 17:25 EST) WBC 8.81 4.0 - 12.4 K/cmm 09/24/2018 18:14 [facility] RBC 4.82 3.86 - 5.04 M/cmm 09/24/2018 18:14 [facility] Hemoglobin 13.9 11.6 - 15.2 gm/dl 09/24/2018 18:14 [facility] HCT 41.6 34.9 - 44.4 % 09/24/2018 18:14 [facility] MCV 86 81 - 98 fl 09/24/2018 18:14 [facility] MCH 28.8 26.7 - 33.3 pg 09/24/2018 18:14 [facility] MCHC 33.4 32.1 - 35.9 gm/dl 09/24/2018 18:14 [facility] RDW-CV 12.9 <14.7 % 09/24/2018 18:14 [facility] RDW-SD 40.4 <50.4 fl 09/24/2018 18:14 [facility] PLT 325 141 - 377 K/cmm 09/24/2018 18:14 [facility] MPV 8.9(L) 9.5 - 12.7 fl 09/24/2018 18:14 [facility] % Neutrophils 51.5 % 09/24/2018 18:14 [facility] % Lymphocytes 39.2 % 09/24/2018 18:14 [facility] % Monocytes 6.6 % 09/24/2018 18:14 [facility] % Eosinophils 1.8 % 09/24/2018 18:14 [facility] % Basophils 0.8 % 09/24/2018 18:14 [facility] % Immature Grans 0.1 % 09/24/2018 18:14 [facility] ABS Neutrophils 4.54 2.20 - 8.85 K/cmm 09/24/2018 18:14 [facility] ABS Lymphs 3.45(H) 1.09 - 3.30 K/cmm 09/24/2018 18:14 [facility] ABS Monocytes 0.58 0.1 - 0.8 K/cmm 09/24/2018 18:14 [facility] ABS Eosinophils 0.16 0.03 - 0.61 K/cmm 09/24/2018 18:14 [facility] ABS Basophils 0.07 0.01 - 0.11 K/cmm 09/24/2018 18:14 EST [facility] ABS Immature Grans 0.01 0 - 0.06 K/cmm 09/24/2018 18:14 EST [facility] Type of Diff: Automated 09/24/2018 18:14 EST [facility] Blood specimen (specimen) BLOOD SPECIMEN / Unknown 09/24/2018 17:25 EST 09/24/2018 18:03 EST Aldo Mueller PA-C PACKAGES & DNA PROB E ORDERABLES [facility] [address] [place] [address] documented in this encounter Visit Diagnoses Diagnosis Colitis, acute- Primary Other and unspecified noninfectious gastroenteritis and colitis documented in this encounter Administered Medications Inactive Administered Medications - up to 3 most recent administrations Medication Order MAR Action Action Date Dose Rate Site naproxen (NAPROSYN) tablet 500 mg 500 mg, oral, NOW X1, 1 dose, On Mon09/24/18 at 2014, STAT Given 09/24/2018 20:43 EST 500 mg documented in this encounter Discontinued Medications Medication Sig Discontinue Reason Start Date End Da te CYMBALTA 60 mg capsule TAKE ONE CAPSULE BY MOUTH EVERY DAY 10/15/2013 09/24/2018 omeprazole (PRILOSEC) 20 mg capsuleIndications:GERD (gastroesophageal reflux disease),Cough Take 1 Cap by mouth 2 times daily. 12/20/2013 09/24/2018 metoprolol (LOPRESSOR) 25 mg tabletIndications:Hyperten oliverio Take 1 Tab by mouth 2 times daily. 06/05/2013 09/24/2018 ondansetron (ZOFRAN-ODT) 4 mg disintegrating tablet Take 1 Tab by mouth every 6 hours as needed for Nausea. 06/14/2013 09/24/2018 HYDROcodone-acetaminophen (NORCO) 10-325 mg tabletIndications:Pain of right leg,Cervical spondylosis without myelopathy,Arthropathy,Fib romyalgia Take 1 Tab by mouth every 6 hours as needed for Pain. 04/21/2014 09/24/2018 documented as of this encounter Active and Recently Administered Medications Times are shown in EST. Scheduled Medication Order 09/22/2018 09/23/2018 09/24/2018 acetaminophen (TYLENOL) tablet 1,000 mg 1,000 mg, oral, NOW X1, 1 dose, On Mon09/24/18 at 1945, STAT 2000 (Not Given - Pr ovider: Karo Hardy RN - Reason: Patient/family refused) naproxen (NAPROSYN) tablet 500 mg (COMPLETED) 500 mg, oral, NOW X1, 1 dose, On Mon09/24/18 at 2015, STAT 2042 (Given - Provid er: Karo Hardy RN) documented in this encounter Orders Medications Ordered That Max ht Not Have Been Administered Count Last Ordered Date First Ordered Date acetaminophen (TYLENOL) tablet 1,000 mg 1 1 11/24/2017 Nursing Count Last Ordered Date First Orde red Date INSERT PERIPHERAL IV 09/24/2018 documented in this encounter
--- OUTSIDE RECORDS SUMMARY | 2024-06-24 02:16 | XMS_ITS | Encounter Summary ---
Author Organization [facility] Address [address] [place] [address] Care Team Providers Care Dental Office Assistant Name Role Phone Remedios Mehta MD Primary Care Provider [phone] Reason for Visit * Reason Comments Community Health Team Encounter Details Date Type Department Care Team (Late st Contact Info) Description 04/24/2014 Community Health Team [facility] [address] [facility], [address] [place], [place] [id number] Yaneth Alberts, RD [address] [place] [address] Social History Tobacco Use Types Packs/Day Years [...] Yes 07/17/2013 documented as of this encounter Progress Notes * Shilpi Forte - 04/24/2014 1136 EDT ..Patient no showed/cancelled appointment with team members. Left two messages and sent letter for patient to reschedule with no response. Patient is on INACTIVE status with the [facility] Team. documented in this encounter Plan of Treatment [...] on filedocumented in this encounter Care Teams Dental Office Assistant Relationship Specialty Start Date End Date Remedios Mehta MD [address] [place] [id number] PCP - General 02/19/09 01/04/15 documented as of this encounter
--- OUTSIDE RECORDS SUMMARY | 2024-06-24 02:16 | XMS_ITS | Encounter Summary ---
Author Organization [facility] Address [address] [place] [address] Care Team Providers Care Welt Sewer Name Role Phone Remedios Mehta MD Primary Care Provider [phone] Reason for Visit * Reason Comments Other Encounter Details Date Type Department Care Team (Late st Contact Info) Description 10/17/[address] [address] Remedios Mehta MD [address] [place] [phone] Other Social History Tobacco Use Types [...] Dispensed Refills Start Date End Da te polyethylene glycol (GLYCOLAX) 17 gram/dose powder Take 17 g by mouth daily. 1 Bottle 0 10/20/2014 04/18/2021 documented in this encounter Plan of Treatment [...] Discontinue Reason Start Date End Da te polyethylene glycol (GLYCOLAX) 17 gram/dose powderIndications:IC (irritable colon) Take 17 g by mouth daily. Reorder 12/23/2013 10/17/2014 documented as of this encounter Care Teams Welt Sewer Relationship Specialty Start Date End Date Remedios Mehta MD [address] [place] [phone] PCP - General 02/19/09 01/04/15 documented as of this encounter
--- OUTSIDE RECORDS SUMMARY | 2024-06-24 02:16 | XMS_ITS | Encounter Summary ---
Author Organization [facility] Address [address] [place] [address] Care Team Providers Care Contracting Engineer Name Role Phone German Garzon PA-C Primary Care Provider [phone] Encounter Details Date Type Department Care Team (Latest Contact Info) Description 2021 Travel Social History Tobacco Use Types Packs/Day Years [...] Diagnoses Not on filedocumented in this encounter Additional Health Concerns Infection Onset Date Last Indicated Resolved Time Rule-Out C. difficile 2021 04/16/20212020 13:40 EDT documented as of this encounter Care Teams Contracting Engineer Relationship Specialty Start Date End Date German Garzon PA-C [address] [place] [address] PCP - General 09/28/18 05/29/22 documented as of this encounter
--- OUTSIDE RECORDS SUMMARY | 2024-06-24 02:16 | XMS_ITS | Encounter Summary ---
Author Organization [facility] Address [address] [place] [address] Care Team Providers Care Water Resource Project Manager Name Role Phone Elly Ling WELL DRILL OPERATOR HELPER CABLE TOOL Primary Care Provider [phone] Encounter Details Date Type Department Care Team (Late st Contact Info) Description 06/15/2022 Lab Requisition [facility] Pathology & Laboratory Medicine - [facility] [address] [place] [address] Felipa Vee MD [address] [place] [address] [address] [place], [place] [id number] Encounter for screening for malignant neoplasm of colon; Personal history of colonic polyps; Unspecified hemorrhoids; Gastro-esophageal reflux disease without esophagitis Social History Tobacco Use Types Packs/Day Years [...] Procedure Name Priority Date/Time Associated Diagnosis Comments SURGICAL PATHOLOGY Today 06/15/2022 12 :00 EDT Encounter for screening for malignant neoplasm of colon Personal history of colonic polyps Unspecified hemorrhoids Gastro-esophageal reflux disease without esophagitis documented in this encounter Results * SURGICAL PATHOLOGY (06/15/2022 12:00 EDT) Note to Patient The following pathology results have been interpreted by your pathologist and may be available to you before your health provider has had the opportunity to review them. Please allow time for your provider to receive these results and explore management options, if applicable. 06/20/2022 12:08 EDT [facility] Final Diagnosis A. STOMACH, ANTRUM, BIOPSY: - Antral mucosa with reactive (chemical) gastropathy. - Negative for Helicobacter pylori on H&E stained sections. B. STOMACH, BODY, BIOPSY: - Fundic mucosa with mild parietal cell hyperplasia. - Negative for Helicobacter pylori on H&E stained sections. C. GASTROESOPHAGEAL JUNCTION, BIOPSY: - Squamocolumnar mucosa with mild reactive changes. - Negative for intestinal metaplasia and dysplasia. 06/20/2022 12:08 [facility] Attestation There was significant resident/fellow involvement in the diagnostic evaluation of this case. By the signature below, the attending physician certifies that they have personally conducted a gross and/or microscopic examination of the described specimens and rendered or confirmed the above diagnosis. 06/20/2022 12:08 [facility] at 1208 Clinical History Colon ca screening, H/O polyps, GERD 06/20/2022 12:08 [facility] Gross Description A. Received in formalin labelled with proper patient identification (initials B, T) and 1. Antrum Bx is a single monahan-brown tissue fragment (0.5 x 0.4 x 0.1 cm). Submitted intact in A1. B. Received in formalin labelled with proper patient identification (initials B, T) and 2. Body of stomach Bx are two brown-yellow and opaque monahan-white tissues (0.4 x 0.3 x 0.1 cm and 0.3 x 0.2 by less than 0.1 cm). Entirely submitted in B1. C. Received in formalin labelled with proper patient identification (initials B, T) and 3. GE junction Bx is a single opaque monahan-white tissue fragment (0.6 x 0.2 x 0.1 cm). Submitted intact in C1. EDMUND HERNANDEZ 06/16/2022 8:53 06/20/2022 12:08 [facility] Resident/Jax w: Ildefonso Holland MD 06/20/2022 12:08 [facility] Performing Lab [facility] 12:08 [facility] Scanned Images 06/20/2022 12:08 [facility] Tissue ENTIRE ESOPHAGUS / Unknown 06/15/2022 12:00 EDT 06/15/2022 22:05 EDT Tissue specimen (specimen) STOMACH STRUCTURE / Unknown 06/15/2022 12:00 EDT 06/15/2022 22:05 EDT Tissue specimen (specimen) ESOPHAGEAL STRUCTURE / Unknown 06/15/2022 12:00 EDT 06/15/2022 22:05 EDT Felipa Vee MD PATHOLOGY ORDERA ALICIA [facility] [address] [place] [address] documented in this encounter Visit Diagnoses Diagnosis Encounter for screening for malignant neoplasm of colon Special screening for malignant neoplasms, colon Personal history of colonic polyps Unspecified hemorrhoids Gastro-esophageal reflux disease without esophagitis Esophageal reflux documented in this encounter Care Teams Water Resource Project Manager Relationship Specialty Start Date End Date Elly Ling NP [address] [place] [address] PCP - General Family Medicine - Primary Care 05/30/22 documented as of this encounter
--- OUTSIDE RECORDS SUMMARY | 2024-06-24 02:16 | XMS_ITS | Encounter Summary ---
Author Organization [facility] Address [address] [place] [address] Care Team Providers Care Carpet Jack Name Role Phone German Garzon PA-C Primary Care Provider [phone] Encounter Details Date Type Department Care Team (Late st Contact Info) Description 04/15/2021 Transcribe Orders [facility] Medicine [facility] [address] [place], [place] [phone] Cata Dave MD [address] [place] [address] Social History Tobacco Use Types Packs/Day Years [...] documented as of this encounter Care Teams Carpet Jack Relationship Specialty Start Date End Date German Garzon PA-C [address] [place] [address] PCP - General 09/28/18 05/29/22 documented as of this encounter
--- OUTSIDE RECORDS SUMMARY | 2024-06-24 02:16 | XMS_ITS | Encounter Summary ---
Author Organization [facility] Address [address] [place] [address] Care Team Providers Care Glue Spreader Name Role Phone Remedios Mehta MD Primary Care Provider [phone] Reason for Visit * Reason Onset Date Comments Medications Refill 06/05/2014 Encounter Details Date Type Department Care Team (Late st Contact Info) Description 06/05/[address] [address] Remedios Mehta MD [address] [place] [phone] Medications Refill Social History Tobacco Use Types Packs/Day Years [...] encounter Miscellaneous Notes * Telephone Encounter - Remedios Strong MD - 06/05/2014 1706 EDT Can't send narcotics out of state. * Telephone Encounter - Brook Weathers - 06/05/2014 1224 EDT Medication(s) Requested: Hydrocodone-acet Pharmacy: [facility] [place] Last Refill Date: 04/22/14 #116 No refills Last Visit Date: 03/17/14 Next Visit Date: Visit date not found Is patient out of medication? Yes - Patient has moved to [place] and does not have a new doctor yet. Sheis waiting for her Medicare & medicaid transferred to [place]. Brook Weathers 06/05/2014 12:24 documented in this encounter Plan of Treatment [...] of right leg- Primary Pain in limb Cervical spondylosis without myelopathy Arthropathy Arthropathy, unspecified, site unspecified Fibromyalgia Mylagia and myositis, unspecified documented in this encounter Care Teams Glue Spreader Relationship Specialty Start Date End Date Remedios Mehta MD [address] [place] [phone] PCP - General 02/19/09 01/04/15 documented as of this encounter
--- OUTSIDE RECORDS SUMMARY | 2024-06-24 02:16 | XMS_ITS | Encounter Summary ---
Author Organization [facility] Address [address] [place] [address] Care Team Providers Care Medical Grade Shoemaker Name Role Phone None, Provider Primary Care Provider Unavailabl e Reason for Visit * Reason Comments Other Encounter Details Date Type Department Care Team (Late st Contact Info) Description 06/22/[address] [address] Remedios Mehta MD [address] [place] [address] Other Social History Tobacco Use Types [...] on filedocumented in this encounter Care Teams Medical Grade Shoemaker Relationship Specialty Start Date End Date None, Provider PCP - General 01/05/15 09/23/18 documented as of this encounter
--- OUTSIDE RECORDS SUMMARY | 2024-06-24 02:16 | XMS_ITS | Encounter Summary ---
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 Visiting [place]. +emesis in triage (bile). Known 'digestive and liver issues.' Reports blood in vomit this morning. Hx IBS and colon resection. Diaphoretic. BGL 179 * Auth/Cert Specialty Diagnoses / Procedures Referred By Joao proctor Referred To Contact Diagnoses Diarrhea Colitis Generalized abdominal pain Referral ID Status Reason Start Date Expiration Date Visits Re quested Visits Authorized [id number] 1 1 Encounter Details Date Type Department Care Team (Late st Contact Info) Description 2021 10:36 EDT - 04/18/2021 15:29 EDT Hospital Encounter [facility] General Medicine Unit [address] [place] [address] Nel Borges MD MPH [address] [facility], [address] [place] [address] Jhon Rdz MD [address] [phone] Generalized abdominal pain (Primary Dx); Colitis; Functional diarrhea; Other hemorrhoids; C. difficile diarrhea Discharge Disposition: Home or Self Care Social [...] 10:30 EDT documented as of this encounter Last Filed [...] Body Mass Index 33.01 2021 1030 EDT documented in this encounter Functional Status Functional Status Response [...] No 2021 documented as of this encounter Discharge Summaries * Jhon Rdz MD - 04/18/2021 0749 EDT Medicine Discharge Summary Primary Care Provider: German Garzon Attending Physician: Jhon Rdz MD Admit Date: 2021 Discharge Date: 04/18/21 Disposition: Home or self care Reason for Admission: Diarrhea Principal/Final Diagnosis: Colitis Additional Problems Managed in the Hospital Active Hospital Problems Diagnosis Date Noted ??? Chronic pain syndrome 05/06/2014 ??? Chronic post-traumatic stress disorder 06/02/2005 Class: Permanent Resolved Hospital Problems Diagnosis Date Noted Date Resolved ??? *Colitis 2021 04/18/2021 ??? Diarrhea 2021 04/18/2021 ??? Generalized abdominal pain 2021 04/18/2021 Principal Procedure: None Secondary Procedures: None Hospital Course: Erikarafaela Pisanozackary??is a 61 y.o.??female??with a PMHx significant for asthma, T2DM, SHORE, HTN, hemorrhoids, and fibromyalgia who presented to the ED with a progressive acute on chronic diarrhea and emesis, admitted for proctocolitis. In the ED, she was afebrile and was tachycardic to the 120s. She was hypokalemic to 2.6 and had Tbili 1.7. UA showed 11-50 WBCs, 3-10 TBCs, with few squamous cells. CTAP showed signs of possible mildinflammation in the sigmoid colon and rectum, along with hepatic steatosis and a hepatic cyst. She was given 1 L IV LR bolus, 4 mg IV ondansetron, and 20 mEq IV potassium chloride. She was admitted to the medicine service for further workup. On the medicine floor, patient remained afebrile, but developed tachycardia, tachypnea, shaking anddiaphoresis prompting a rapid response. Her magnesium was undetectably low, which was repleted, along with additional IVF and potassium. Initially on admission she was no longer having bowel movements, flatus, or tolerating PO intake. She underwent repeat CT A/P, which revealed no evidence of obstruction. She was started on Unasyn and ACS was consulted due to her history of volvulus s/p R hemicolectomy, who recommended no surgical intervention at this time. Course c/b enterococcus UTI, which was treated with ampicillin/sublbactam. Her C. Diff PCR returned positive and she was started on oral vancomycin. Over the next several days her abdominal pain improved, she began having bowel movements, tolerating PO intake, and ambulating independantly. She was determined to be stable for discharge on 04/18/21 with a plan for follow-up with her PCP, German Garzon, and her surgeon Heladio Frye MD. Condition at Discharge: Improved or Stable Clinical Issues Needing Follow-up: Medication Changes: - Start vancomycin 125 mg PO QID for 16 days (14 days after completing UTI tx) - Start amoxicillin 500 mg Q8Hrs for 1 day Acute clostridioides difficile proctocolitis in the setting of volvulus s/p R hemicolectomy - Follow-up with German GARCIA - Recommend referral to outpatient GI for colonoscopy - Start vancomycin 125 mg PO QID for 16 days Enterococcus faecalis UTI: - Follow-up with German GARCIA - Start amoxicillin 500 mg Q8Hrs for 1 day Hemorrhoids: - Follow-up with German GARCIA - Recommend follow-up with colorectal surgery Anginal Pain: - Follow-up with German GARCIA - Follow-up with outpatient cardiology Allergies Allergen Reactions ??? Latex, Natural Rubber Hives ??? Adhesive Rash Adhesive tape and band aids, paper tape ok ??? Aspirin Shortness Of Breath ??? Chocolate Flavor Hives Anything with chocolate gives rash ??? Codeine Shortness Of Breath ??? Other - See Comments Dust mites, mold, pollen, SOB ??? Penicillins Shortness Of Breath ??? Sulfa (Sulfonamide Antibiotics) Hives ??? Soy Constipation ??? Wheat Containing Prod Constipation Immunization History Administered Date(s) Administered ??? Influenza (whole) 07/29/2009 ? ? Influenza Vaccine =>3yo Split IM 09/27/2010, 08/13/2013 ? ? Influenza Vaccine =>3yo Split Preservative Free IM 08/31/2011, 09/06/2012 ??? PPD Skin Test Placement 01/23/2013 ? ? Pneumococcal Polysaccharide (PPSV23) Vaccine (PNEUMOVAX-23) =>2YO SQ/IM 12/24/2004, 03/10/2010 ? ? Tdap Vaccine =>7YO IM 12/03/2012 Results Pending at Discharge Test results still pending from this admission Procedure Component Value Units Date/Time Calprotectin, F [[id number]] Collected: 04/16/21816 Lab Status: In process Specimen: Feces from Rectum Updated: 04/16/21846 Giardia and Cryptosporidum Antigen Detection [[id number]] Collected: 04/16/21816 Lab Status: In process Specimen: Feces from Rectum Updated: 04/16/21846 Bacterial Culture, Blood [[id number]] Collected: 04/14/211907 Lab Status: In process Specimen: Blood, Venous Updated: 04/14/211926 Bacterial Culture, Blood [[id number]] Collected: 04/14/211907 Lab Status: In process Specimen: Blood, Venous Updated: 04/14/211925 Tissue Transglutaminase Ab [[id number]] Collected: 04/14/21 1108 Lab Status: In process Specimen: Blood, Venous Updated: 04/14/21 1626 Follow-up appointments and procedures Amb Consult/Follow Up General Surgery/Colorectal Surgery Reason for Request: F/u admission for LUQ LLQ abdominal pain and C. diff, requires GI follow-up Authorizing Provider: Shirley Birmingham MD Amb Consult/Follow Up Primary Care Physician Reason for Request: F/u admission for abdominal pain and c. diff infection Authorizing Provider: Shirley Birmingham MD Amb Consult/Follow Up General Surgery/Colorectal Surgery Reason for Request: patient w/ h/o hemicolectomy, admitted w/ n/v and diarrhea found to be 2/2 c. diff. Also w/ perineal pain and external thrombosed hemorrhoids. Will see in clinic for hemmorhoids. Authorizing Provider: Aly Mike MD Discharge Handoff Communication Contact was not made at the time of discharge - Due to inability to reach office Discharge Summary Completed By: Shirley Birmingham MD ATTENDING ATTESTATION: Patient was seen and examined on the day of discharge. I personally reviewed the hospital course and diagnostic testing. I discussed the case with the resident/KARLA. I agree with and edited (in blue) the findings and plan of care as documented in the note above. Plans at the time of discharge were discussed with the patient and will be forwarded to their PCP. Any questions were answered and there were no barriers to care. I personally spent a total of 45 minutes on this discharge and in the care of this patient today with >50% on the unit in counseling and coordinating care as described above. Jhon Rdz MD Internal Medicine Hospitalist 04/18/2021 20:25 documented in this encounter Discharge Instructions * Discharge Instr - AVS First Page* Shirley Birmingham MD - 04/18/2021 14:48 EDT Thank you for allowing the [facility] to be a part of your care. Here is a personal personal message from Dr. Birmingham and the medical care team: 1) Call your primary care's office to schedule a follow-up. We recommend a referral to gastroenterology as well as a colonoscopy 2) We recommend follow-up with your general surgeon for your symptoms of diarrhea since your surgery and for evaluation of your colon 3) Please take your antibiotics as prescribed and make sure your primary care provider is comfortable with you stopping treatment before you do. 4) When taking loperamide (imodium), which you can get over the counter, take 4 mg after having diarrhea. You can then take another 2 mg after every loose stool until your bowel movements return to normal. Do not take more than 16 mg in a 24 hour period. [facility] Patient Instructions loperamide Pronunciation: jena PER a mide Brand: Diamode, Imodium A-D, Imodium A-D EZ Chews, Imodium A-D New Formula What is the most important information I should know about loperamide? You should not use loperamide if you have ulcerative colitis, bloody or tarry stools, diarrhea witha high fever, or diarrhea caused by antibiotic medication. Loperamide is safe when used as directed. TAKING TOO MUCH LOPERAMIDE CAN CAUSE SERIOUS HEART PROBLEMS OR . Serious heart problems may also happen if you take loperamide with other medicines. Ask a doctor orpharmacist about safely using medications together. Do not give loperamide to a child younger than 2 years old. What is loperamide? Loperamide is used to treat diarrhea. Loperamide is also used to reduce the amount of stool in people who have an ileostomy (re-routing of the bowel through a surgical opening in the stomach). Loperamide may also be used for purposes not listed in this medication guide. What should I discuss with my healthcare provider before taking loperamide? You should not use loperamide if you are allergic to it, or if you have: stomach pain without diarrhea; diarrhea with a high fever; ulcerative colitis; diarrhea that is caused by a bacterial infection; or stools that are bloody, black, or tarry. Ask your doctor before using loperamide to treat diarrhea caused by taking an antibiotic (Clostridium difficile). Do not give loperamide to a child younger than 2 years old. Do not give this medicine to an older child or teenager without a doctor's advice. Ask a doctor or pharmacist if it is safe for you to take loperamide if you have: a fever; mucus in your stools; liver disease; or a heart rhythm disorder. Ask a doctor before using this medicine if you are . You should not breast-feed while you are using loperamide. How should I take loperamide? Use exactly as directed on the label, or as prescribed by your doctor. Loperamide is safe when used as directed. TAKING TOO MUCH LOPERAMIDE CAN CAUSE SERIOUS HEART PROBLEMS OR . Always follow directions on the medicine label about giving loperamide to a child. A safe dose of loperamide is different for an adult than for a child. Doses in children are based on the child's age. Take loperamide with a full glass of water. Diarrhea can cause your body to lose fluids and electrolytes. Drink plenty of liquids to keep from getting dehydrated. The loperamide chewable tablet must be chewed before swallowing. Shake the oral suspension (liquid) before you measure a dose. Use the dosing syringe provided, or use a medicine dose-measuring device (not a kitchen spoon). Not all liquid forms of loperamide are the same strengths. Carefully follow all dosing instructionsfor the medicine you are using. Store at room temperature away from moisture and heat. Do not allow the liquid medicine to freeze. Stop taking loperamide and call your doctor if you still have diarrhea after 2 days of treatment, or if you also have stomach bloating. What happens if I miss a dose? Since loperamide is used when needed, it does not have a daily dosing schedule. Call your doctor ifyour symptoms do not improve after using this medicine. What happens if I overdose? Seek emergency medical attention or call the Poison Help line at . An overdose of loperamide can be fatal. Overdose symptoms may include fast or irregular heartbeats, or fainting. A person caring for you should seek emergency medical attention if you pass out and are hard to wake up. What should I avoid while taking loperamide? Avoid drinking tonic water. It can interact with loperamide and may cause serious heart problems. Avoid becoming dehydrated by drinking plenty of fluids. Avoid vigorous exercise or exposure to hot weather if you are dehydrated. Avoid driving or hazardous activity until you know how this medicine will affect you. Your reactions could be impaired. What are the possible side effects of loperamide? Get emergency medical help if you have signs of an allergic reaction (hives, difficult breathing, swelling in your face or throat) or a severe skin reaction (fever, sore throat, burning in your eyes,skin pain, red or purple skin rash that spreads and causes blistering and peeling). Stop taking loperamide and call your doctor at once if you have: diarrhea that is watery or bloody; stomach pain or bloating; ongoing or worsening diarrhea; or fast or pounding heartbeats, fluttering in your chest, shortness of breath, and sudden dizziness (like you might pass out). Common side effects may include: constipation; dizziness, drowsiness; nausea; or stomach cramps. This is not a complete list of side effects and others may occur. Call your doctor for medical advice about side effects. You may report side effects to FDA at 4-944-PMF-2475. What other drugs will affect loperamide? Sometimes it is not safe to use certain medications at the same time. Some drugs can affect your blood levels of other drugs you take. Ask a doctor or pharmacist about safely using medications together. Loperamide can cause a serious heart problem. Your risk may be higher if you also use certain othermedicines for infections, heart problems, depression, mental illness, cancer, malaria, or HIV. Many drugs can affect loperamide. This includes prescription and sona-oct-ygzxaxl medicines, vitamins, and herbal products. Not all possible interactions are listed here. Tell your doctor about all your current medicines and any medicine you start or stop using. Where can I get more information? Your pharmacist can provide more information about loperamide. Remember, keep this and all other medicines out of the reach of children, never share your medicines with others, and use this medication only for the indication prescribed. Every effort has been made to ensure that the information provided by [employer]. ('[employer]') is accurate, up-to-date, and complete, but no guarantee is made to that effect. Drug information contained herein may be time sensitive. [employer] information has been compiled for use by healthcare practitioners and consumers in the [place] and therefore [employer] does not warrant that uses outside of the [place] are appropriate, unless specifically indicated otherwise. [employer] drug information does not endorse drugs, diagnose patients or recommend therapy. [employer] drug information isan informational resource designed to assist licensed healthcare practitioners in caring for their p atients and/or to serve consumers viewing this service as a supplement to, and not a substitute for, the expertise, skill, knowledge and judgment of healthcare practitioners. The absence of a warningfor a given drug or drug combination in no way should be construed to indicate that the drug or drug combination is safe, effective or appropriate for any given patient. [employer] does not assume any responsibility for any aspect of healthcare administered with the aid of information [employer] provides. The information contained herein is not intended to cover all possible uses, directions, precautions, warnings, drug interactions, allergic reactions, or adverse effects. If you have questions about the drugs you are taking, check with your doctor, nurse or pharmacist. Copyright [id number] [employer]. Version: 9.01. Revision date: 01/16/2019. Care instructions adapted under license by [facility]. If you have questions about a medical condition or this instruction, always ask your healthcare professional. [employer] disclaims any warranty or liability for your use of this information. documented in this encounter Medications at Time [...] needed for Wheezing. 1 Box 1 08/25/2012 budesonide-formotero l HFA (SYMBICORT) 80-4.5 mcg/actuation HFA Aerosol Inhaler inhalerIndications:A sthma,Hyperlipidemia ,Need for Tdap vaccination,Abdomina l discomfort,IBS (irritable bowel syndrome),GERD (gastroesophageal reflux disease) [...] 3 06/05/2013 fluticasone (FLONASE) 50 mcg/actuation nasal sprayIndications:Ast hma,Hyperlipidemia,N eed for Tdap vaccination,Abdomina l discomfort,IBS (irritable bowel syndrome),GERD (gastroesophageal reflux disease) Instill 1 Goldonna into both nostrils daily. 1 Bottle 5 06/05/2013 loratadine (CLARITIN) 10 mg tablet Take 1 Tab by mouth daily. 90 Tab 1 08/21/2013 lovastatin (MEVACOR) 20 mg tabletIndications:Hy perlipidemia Take 1 Tab by mouth daily. 90 Tab 4 12/23/2013 lubiprostone (AMITIZA) 24 mcg capsule Take 24 mcg by mouth as needed. 09/27/2010 MULTIVITAMINS (MULTIVITAMIN ORAL) Take 1 Tab by mouth daily. pregabalin (LYRICA) 50 mg capsule Take 1 Cap by mouth 3 times daily. 90 Cap 3 03/06/2014 prochlorperazine (COMPAZINE) 10 mg tablet Take 1 Tablet by mouth 3 times daily. 10 Tablet 04/18/2021 traZODone (DESYREL) 100 mg tablet Take 0.5-1 Tabs by mouth at bedtime as needed for Sleep. 56 Tab 1 05/12/2014 amoxicillin (AMOXIL) 500 mg capsule Take 1 capsule by mouth every 8 hours for 1 day. 3 capsule 04/18/2021 04/19/2021 vancomycin (VANCOCIN) 125 mg capsule Take 1 capsule by mouth 4 times daily for 16 days. 62 capsule 04/18/2021 05/04/2021 documented as of this encounter Ordered Prescriptions Prescription Sig Dispensed Refills Start Date End Da te prochlorperazine (COMPAZINE) 10 mg tablet Take 1 Tablet by mouth 3 times daily. 10 Tablet 04/18/2021 vancomycin (VANCOCIN) 125 mg capsule Take 1 capsule by mouth 4 times daily for 16 days. 62 capsule 04/18/2021 05/04/2021 amoxicillin (AMOXIL) 500 mg capsule Take 1 capsule by mouth every 8 hours for 1 day. 3 capsule 04/18/2021 04/19/2021 documented in this encounter Discharge Disposition Disposition Code Departure Means Destination Home or Self Mcfp documented in this encounter Progress Notes * Aly Mike MD - 04/17/2021 1101 EDT Colorectal surgery progress note Colorectal surgery to sign off at this time. Please page the signs and displays salesperson resident at [phone] with questions. Follow up in 1 month in our clinic (referral made by me). Aly Mike MD PGY1 04/17/21 11:03 Pager#[phone] * Jhon Rdz MD - 04/17/2021 5221 EDT Medicine Progress Note Service Date: 04/17/2021 Admit Date: 2021 10:36 Reason for Admission: 61 y.o. female admitted with a chief complaint of irsrs-pf-uqudxcr diarrhea and now with a principal diagnosis of colitis. 24 Hour Events: - No acute events overnight Subjective/Objective Subjective Erika states that she feels less nausea this morning and is hungry to eat. She states that she has not had a bowel movement, but has been passing gas. She states that her abdominal pain is less severebut is also affecting her RLQ. States that she had a breakfast sandwich this morning which she tolerated without difficulty. She otherwise denies fever, worsening chest pain, and vomiting. Review of Systems A ten point review of systems was performed and was negative except for pertinent positives noted in the HPI Objective Vital Signs Temp: [36.8 ??C (98.2 ??F)-37.7 ??C (99.9 ??F)] , Heart Rate: [71 BPM-72 BPM] , Resp: [16-18] , BP:(110-136)/(58-76) , SpO2: [96 %-100 %] Physical Exam General: Alert, aware, and oriented to person, place, and time. Pleasant HEENT: Normocephalic/atraumatic. Conjunctivae clear and non-icteric. Cardiovascular: Normal rate, regular rhythm. No murmurs, rubs, or gallops. S1 and S2 are heard and are of normal intensity. Respiratory: Mild end-expiratory wheezes. Good, symmetric chest expansion with good pulmonary effort. No signs of respiratory distress. Abdominal: Abdomen soft, non-distended, but exquisitely tender to palpation diffusely. No guarding. Extremities: Warm and well-perfused. No edema, erythema, or cyanosis. Dorsalis pedis pulse 2+ bilaterally. Neurological: Alert, aware, and oriented to person, place, and time. Fluent speech. No facial droop. Purposefully moving all extremities against gravity. Psychiatric: Normal affect. Mood and affect congruent. Is PICC or central line present? No, PICC/Central line not present. Medications Reviewed. Labs CBC: Recent Labs 04/15/21 0543 04/15/21 1022 04/16/21 0732 04/17/21 0543 WBC 8.75 9.66 7.02 9.96 RBC 3.64* 3.94 3.32* 3.49* HGB 10.6* 11.4* 9.8* 10.2* HCT 30.2* 32.9* 28.8* 30.0* MCV 83 84 87 86 MCH 29.1 28.9 29.5 29.2 MCHC 35.1 34.7 34.0 34.0 PLT 342 437* 306 318 NEUTROABS 4.59 -- 4.65 7.77 BMP: Recent Labs 04/15/21 0543 04/15/21 0929 04/15/21 1022 04/15/21 1543 04/15/21 2359 04/16/21 0732 04/16/21 1410 04/17/21 0001 04/17/21 0543 NA 144 -- 142 141 144 143 141 140 141 K 3.2* -- 3.8 3.9 5.3* 5.0 3.9 4.1 4.9 CL 101 -- 103 101 110 108 102 104 107 CO2 28 -- 23 28 21* 26 30 29 27 BUN -- -- 13 -- -- -- -- -- -- CREATININE 0.93 -- 0.92 -- -- 0.70 -- -- 0.68 CALCIUM -- -- -- -- -- 8.1* -- -- -- CALCCA -- -- -- -- -- 8.9 -- -- -- MG <0.5* -- 1.4* 2.4 -- 2.1 -- -- 2.7 PHOS -- 2.2* -- 3.0 -- 3.5 -- -- 2.6 LFT: Recent Labs 04/15/21 0543 04/16/21 0732 04/17/21 0543 TBIL 1.8* 1.3 0.7 ALKPHOS 49 50 58 AST 29 33 21 ALT 26 26 23 Imaging Reviewed. Micro Reviewed. - 04/16/21 Giardia and cryptosporidium: Pending - 04/16/21 Usual fecal pathogen PCR: Pending - 04/16/21 Fecal bacterial pathogens PCR: Negative - 04/16/21 C. Diff PCR: Positive - 04/15/21 Expanded respiratory viral panel: Negative - 04/15/21 Influenza A and B PCR: Negative Assessment/Plan Assessment Erika Husain??is a 61 y.o.??female??with a PMHx significant for asthma, T2DM, SHORE, HTN, hemorrhoids, and fibromyalgia who presented to the ED with acute on chronic diarrhea and CT A&P showing proctocolitis.Positive for clostridioides difficile in the setting of volvulus s/p R hemicolectomy in the past, severe internal/external hemorrhoids, and chronic cannabis vaping. Symptoms improving, plan to continue PO vancomycin. 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 More severe in the last several months, and even more severe in the lastweek. Acute symptoms??likely 2/2 C. Diff infection. Less likely undiagnosed IBD.??CT A/P (04/14) revealed sigmoid colon and rectum hyperemia and mild wall thickening, but did not reveal diverticulitisor other etiologies. Repeat CT A/P (04/15) done out of concern for surgical abdomen/obstruction following AM rapid response (afebrile, tachycardic, tachypneic, with shaking and diaphoresis) showed no e vidence of obstruction. Electrolytes now stable. Usual fecal pathogens negative, C. Difficile positive. - Continue ampicillin 1000 mg Q6Hrs; day 3 of abx treatment, goal of 5 days - Continue PO vancomycin 125 mg QID for 10 days (04/16-current) - Continue ondansetron 4mg IV Q4Hrs PRN - Continue compazine 10 mg IV Q6Hrs PRN - F/u stool studies (04/16) including unusual fecal pathogens, giardia/crypto, tTG - ACS consulted, appreciate recs; No indication for acute surgical intervention - Colorectal surgery consulted, appreciate recs Prolonged QTc: 04/16 EKG with QTc 469. - Monitor with serial EKGs in the setting of multiple QT-prolonging medications - Consider low-dose ativan for nausea ?? Asthma exacerbation: Less short of breath, although she still has wheezing. - Continue prednisone 40 mg daily, day 2/4 - Dulera instead of PACKAGE LINE RELIEF OPERATOR symbicort, PACKAGE LINE RELIEF OPERATOR albuterol - Duonebs Q6Hrs ?? Enterococcus faecalis UTI - Enterococcus on 04/14 urine culture. - Continue ampicillin 1000 mg Q6Hrs; day 3 of abx treatment, goal of 5 days Shakiness: Unclear etiology, possibly acute, though maybe acute on chronic. In the setting of chronic cannabis vape pen use disorder. Possibly marijuana withdrawal. May all be related to patient's C.Diff infection. - S/p IV lorazepam 1 mg x1 - Consider further lorazepam as needed ??Hypokalemia and hypomagnesemia: Resolved. - Daily lytes, Mg Chronic/resolved problems External hemorrhoids - Hydrocortisone 2.5% BID - Colorectal surgery consulted as above - Will likely need outpatient excision T2DM: Glucose 50-100s. A1c 5.8. - SSI - Glucose checks ACHS Insomnia - Hold PACKAGE LINE RELIEF OPERATOR trazodone 100 mg QHS - Ramelteon QHS prn Cannabis vape pen use - Recommend cessation Fibromyalgia - PACKAGE LINE RELIEF OPERATOR pregabalin 50 mg TID ?? VTE Prophylaxis Ambulate ?? Discharge Plan Home or self care with resolution of electrolyte abnormalities and GI symptoms ?? Consults ACS, Colorectal surgery SHIRLEY BIRMINGHAM MD 04/17/2021 16:26 ATTENDING ATTESTATION: Date of service: 04/17/2021 I have personally interviewed and examined the patient. I personally reviewed laboratories studies, radiographic studies, ECG, and prior records. I discussed the case with the resident/KARLA I agree with (or, as indicated, have edited in BLUE) the findings and plan of care as documented inthe note above. Erika is overall improving. Less abd pain, diarrhea, feeling better. Cont amp for enterococcus UTI. Cont PO vanc for Cdif colitis. Anticipate 10-14 day after completing ampicillin. Jhon Rdz MD Internal Medicine Hospitalist 04/17/2021 20:45 * Jhon Rdz MD - 04/16/2021 1133 EDT Medicine Progress Note Service Date: 04/16/2021 Admit Date: 2021 10:36 Reason for Admission: 61 y.o. female admitted with a chief complaint of [id number] diarrhea and now with a principal diagnosis of colitis. 24 Hour Events: Briefly on 1 L O2 via NC for desats to the 80s during sleep Subjective/Objective Subjective Erika did not sleep that well last night due to pain and nausea. Her prochlorperazine and ondansetron have been controlling her nausea, but it comes back strong when they wear off. She finally had a BM last night. Her breathing feels a bit better, but she still feels wheezy. She is in severe pain from her hemorrhoids, and is having trouble even laying on her back on her bed due to the pain. She ishaving pretty bad headaches. She is sad and frustrated with her condition and really is looking foranswers as to what is going on. She otherwise denies fever, worsening chest pain, and vomiting. Review of Systems A ten point review of systems was performed and was negative except for pertinent positives noted in the HPI Objective Vital Signs Temp: [36.1 ??C (97 ??F)-36.8 ??C (98.2 ??F)] , Heart Rate: [81 BPM-101 BPM] , Resp: [16-20] , BP: (102-122)/(55-58) , SpO2: [91 %-100 %] Physical Exam General: Alert, aware, and oriented to person, place, and time. Appears in moderate distress and anxious. Pleasant and cooperative. Diffuse tremulousness. HEENT: Normocephalic/atraumatic. Conjunctivae clear and non-icteric. Extraocular movements intact. Cardiovascular: Normal rate, regular rhythm. No murmurs, rubs, or gallops. S1 and S2 are heard and are of normal intensity. Respiratory: Mild end-expiratory wheezes. Good, symmetric chest expansion with good pulmonary effort. No signs of respiratory distress. Abdominal: Abdomen soft, non-distended, but exquisitely tender to palpation diffusely. No guarding. Extremities: Warm and well-perfused. No edema, erythema, or cyanosis. Dorsalis pedis pulse 2+ bilaterally. Neurological: Alert, aware, and oriented to person, place, and time. Fluent speech. No facial droop. Purposefully moving all extremities against gravity. Cranial nerves III-XII grossly intact. Dysmetria present on [id number]-yrznhc. Psychiatric: Anxious mood and affect. Is PICC or central line present? No, PICC/Central line not present. Medications Reviewed: Changes notable for prednisone Labs Reviewed: No significant findings. CBC: Recent Labs 04/14/21 1108 04/15/21 0543 04/15/21 1022 04/16/21 0732 WBC 10.55 8.75 9.66 7.02 RBC 4.34 3.64* 3.94 3.32* HGB 12.7 10.6* 11.4* 9.8* HCT 35.5 30.2* 32.9* 28.8* MCV 82 83 84 87 MCH 29.3 29.1 28.9 29.5 MCHC 35.8 35.1 34.7 34.0 PLT 453* 342 437* 306 NEUTROABS 6.98 4.59 -- 4.65 BMP: Recent Labs 04/14/21 1108 04/14/21 1908 04/15/21 0543 04/15/21 0929 04/15/21 1022 04/15/21 1543 04/15/21 2359 04/16/21 0732 NA 145 -- 144 -- 142 141 144 143 K 2.6* -- 3.2* -- 3.8 3.9 5.3* 5.0 CL 100 -- 101 -- 103 101 110 108 CO2 26 -- 28 -- 23 28 21* 26 BUN 16 -- -- -- 13 -- -- -- CREATININE 1.12* -- 0.93 -- 0.92 -- -- 0.70 CALCIUM 9.4 -- -- -- -- -- -- 8.1* CALCCA 8.9 -- -- -- -- -- -- 8.9 MG -- < > <0.5* -- 1.4* 2.4 -- 2.1 PHOS -- -- -- 2.2* -- 3.0 -- 3.5 LABALBU 4.6 -- -- -- -- -- -- -- < > = values in this interval not displayed. LFT: Recent Labs 04/14/21 1108 04/15/21 0543 04/16/21 0732 TBIL 1.7* 1.8* 1.3 ALKPHOS 51 49 50 AST 43 29 33 ALT 29 26 26 LIPASE 238 -- -- Cardiac Markers: Recent Labs 04/14/21 1302 04/15/21 0929 TROPONINI <0.034 <0.034 Hemoglobin A1c: Recent Labs 04/14/21 1108 HGBA1C 5.8* Thyroid Function: Recent Labs 04/14/21 1302 TSH 1.11 Inflammatory Markers: Recent Labs 04/14/21 1302 CRP <7.0 Imaging Reviewed: No new imaging. Assessment/Plan Assessment Erika Husain??is a 61 y.o.??female??with a PMHx significant for asthma, T2DM, SHORE, HTN, hemorrhoids, and fibromyalgia who presented to the ED with a several year history of diarrhea and emesis that has gotten progressively worse in the previous months and especially worse in the past week, admitted for proctocolitis. 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 Discharge limited by whether she tolerates PO intake, as remainder of work-up can likely be outpatient with her providers in [place]. Colorectal surgeryevaluation pending, may reach out to GI next if she continues to not improve. 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 More severe in the last several months, and even more severe in the lastweek. Acute symptoms??likely 2/2 C. Diff infection. Less likely undiagnosed IBD.??CT A/P (04/14) revealed sigmoid colon and rectum hyperemia and mild wall thickening, but did not reveal diverticulitisor other etiologies. Repeat CT A/P (04/15) done out of concern for surgical abdomen/obstruction following AM rapid response (afebrile, tachycardic, tachypneic, with shaking and diaphoresis) showed no e vidence of obstruction. Electrolytes now stable. Usual fecal pathogens negative, C. Difficile positive. - F/u stool studies (04/16) including unusual fecal pathogens, giardia/crypto, tTG -??Nausea control: Zofran 4mg q4h PRN + Compazine 10 mg q6h PRN - Pain control: IV morphine 0.5 mg q4h PRN, scheduled tylenol 1 g q6h - Regular diet, advance as tolerated - Discontinue ampicillin/sulbactam - Start PO vancomycin 125 mg QID for 10 days - Blood cultures pending - ACS consulted, appreciate recs; No indication for acute surgical intervention - Colorectal surgery consulted, appreciate recs - Will consult GI for possible colonoscopy/EGD if symptoms do not improve Prolonged QTc: 04/16 EKG with QTc 469. - Monitor with serial EKGs in the setting of multiple QT-prolonging medications - Consider low-dose ativan for nausea ?? Asthma exacerbation: Less short of breath, although she still has wheezing. - Start Prednisone 40 mg daily, day 1/ - Dulera instead of PACKAGE LINE RELIEF OPERATOR symbicort, PACKAGE LINE RELIEF OPERATOR albuterol - Duonebs q6h ?? Enterococcus faecalis UTI - Enterococcus on 04/14 urine culture. Susceptible to Vanc, could considertreating C. Diff and E. Faecalis UTI with Vanc only. Will narrow amp/sulbactam to ampicillin for now. Can then ransition to PO amoxicillin at discharge if needed. - Discontinue Unasyn - Start ampicillin 1000 mg q6h; day 2 of abx treatment, goal of 5 days Shakiness: Unclear etiology, possibly acute, though maybe acute on chronic. In the setting of chronic cannabis vape pen use disorder. Possibly marijuana withdrawal. May all be related to patient's C.Diff infection. - S/p IV lorazepam 1 mg x1 - Consider further lorazepam as needed ??Hypokalemia and hypomagnesemia: Resolved. - Daily lytes, Mg Chronic/resolved problems External hemorrhoids - Hydrocortisone 2.5% BID - Colorectal surgery consulted as above - Will likely need outpatient excision T2DM: Glucose 50-100s. A1c 5.8. - SSI - Glucose checks ACHS Insomnia - Hold PACKAGE LINE RELIEF OPERATOR trazodone 100 mg QHS - Ramelteon QHS prn Cannabis vape pen use - Recommend cessation Fibromyalgia - PACKAGE LINE RELIEF OPERATOR pregabalin 50 mg TID ?? VTE Prophylaxis Ambulate ?? Discharge Plan Home or self care with resolution of electrolyte abnormalities and GI symptoms ?? Consults ACS, Colorectal surgery Victor Hugo Kaba, MS4 Pager # [phone] 04/16/2021 12:02 I was present with the medical student for the history, exam, and medical decision making documented. I have edited the medical student note as appropriate. Toi Hewitt MD Internal Medicine, PGY-1 pager [phone] 04/16/21 14:49 ATTENDING ATTESTATION: Date of service: 04/16/2021 The resident was present with the medical student for the history, exam, medical decision making documented by him/her. I have personally performed my own physical exam and medical decision-making. Ihave verified and agree with (or, as indicated, edited in blue) the combined medical student's/resident's documentation. Erika largely unchanged when seen this am. Cont abd pain, N/V with PO. Had not had a BM since admission thus was thinking acute infectious diarrhea with background chronic diarrhea perhaps less likely. Colorectal surgery consulted for prolapsing hemorrhoids. Later pt had a BM and samples send for stool studies. Returned Cdif positive. Will start PO vanc and complete 10-14 days post completion of ampicillin for Enterococcus UTI. Continues to have SOB, wheezing on exam. Will give pred burst for asthma exacerbation. Although pt reports stopping cannabis vape pen ~1 week prior to presentation, again encouraged cannabis cessation as this could be contributing to sx. Jhon Rdz MD Internal Medicine Hospitalist, pager: [phone] 04/16/2021 15:04 * Kathy Prasad, PT - 04/16/2021 1130 EDT [facility] Rehabilitation Therapy Acute Therapy [facility] Physical Therapy Contact Note Date of Service: 04/16/2021 Patient unable to remain awake to participate in therapy evaluation. Recommend mobility with staff when awake. PT to follow up on Monday. KATHY PRASAD PT 04/16/2021 11:30 * Nan Hoyos, RN - 04/16/2021 0057 EDT Data: Assumed care at 1900. Endorsing bouts of intermittent abdominal pain and nausea. Hand tremorsobserved, pt reports they are improved from earlier. 1 liter NC overnight, spO2 < 90 % overnight. Action: Hourly rounding. Medications per DEC. Review - labs, orders, notes. Monitor VS. Cluster care to promote a restful environment. Response: Appears to be sleeping on/off throughout the shift. VSS, afebrile. Receiving zofran and morphine for symptom management. NAN HOYOS RN 04/16/2021 0:57 * Jhon Rdz MD - 04/15/2021 1633 EDT Medicine Progress Note Service Date: 04/15/2021 Admit Date: 2021 10:36 Reason for Admission: 61 y.o. female admitted with a chief complaint of acute on chronic diarrhea and emesis and now with a principal diagnosis of colitis. 24 Hour Events: - Given morphine for pain control - Briefly on 1 L O2 via NC for desats to the s Subjective/Objective Subjective Erika is feeling the same as yesterday. She is still has moderately severe abdominal pain, still hasnot had a BM, not passed gas, and is still very nauseous, although has not vomited. Her last BM wason Monday, and it was a liquid yellow. She has not had much to eat at all due to lack of appetite and inability to tolerate PO intake. She also feels short of breath and says she has not gotten her nebulizer treatment yet. She also endorses chest pain that is unchanged from her previous history ofchest pain. She states now that she has a history of stable angina, for which she sees a circular knife cutter machine back in [place]. Review of Systems A ten point review of systems was performed and was negative except for pertinent positives noted in the HPI Objective Vital Signs Temp: [36.5 ??C (97.7 ??F)-37.4 ??C (99.4 ??F)] , Heart Rate: [92 BPM-107 BPM] , Resp: [20-26] , BP: (102-143)/(49-86) , SpO2: [91 %-99 %] Physical Exam General: Alert, aware, and oriented to person, place, and time. Appears in moderate distress and anxious. Pleasant and cooperative. Tremulous. HEENT: Normocephalic/atraumatic. Conjunctivae clear and non-icteric. Extraocular movements intact. Cardiovascular: Normal rate, regular rhythm. No murmurs, rubs, or gallops. S1 and S2 are heard and are of normal intensity. Respiratory: Mild end-expiratory wheezes. Good, symmetric chest expansion with good pulmonary effort. Tachypneic to ~20. Abdominal: Abdomen soft, non-distended, but exquisitely tender to palpation diffusely. Rebound tenderness present. No guarding. Extremities: Warm and well-perfused. No edema, erythema, or cyanosis. Dorsalis pedis pulse 2+ bilaterally. Neurological: Alert, aware, and oriented to person, place, and time. Fluent speech. No facial droop. Purposefully moving all extremities against gravity. Psychiatric: Anxious mood and affect. Is PICC or central line present? No, PICC/Central line not present. Medications Reviewed: Changes notable for ampicillin, ceftriaxone, metronidazole, thiamine Labs Reviewed: Results notable for hypokalemia, hypomagnesemia, elevated lactate, normal iron studies. CBC: Recent Labs 04/14/21 1108 04/15/21 0543 04/15/21 1022 WBC 10.55 8.75 9.66 RBC 4.34 3.64* 3.94 HGB 12.7 10.6* 11.4* HCT 35.5 30.2* 32.9* MCV 82 83 84 MCH 29.3 29.1 28.9 MCHC 35.8 35.1 34.7 PLT 453* 342 437* NEUTROABS 6.98 4.59 -- BMP: Recent Labs 04/14/21 1108 04/15/21 0543 04/15/21 0929 04/15/21 1022 04/15/21 1543 NA 145 144 -- 142 141 K 2.6* 3.2* -- 3.8 3.9 CL 100 101 -- 103 101 CO2 26 28 -- 23 28 BUN 16 -- -- 13 -- CREATININE 1.12* 0.93 -- 0.92 -- CALCIUM 9.4 -- -- -- -- CALCCA 8.9 -- -- -- -- MG -- <0.5* -- 1.4* 2.4 PHOS -- -- 2.2* -- 3.0 LABALBU 4.6 -- -- -- -- LFT: Recent Labs 04/14/21 1108 04/15/21 0543 TBIL 1.7* 1.8* ALKPHOS 51 49 AST 43 29 ALT 29 26 LIPASE 238 -- Cardiac Markers: Recent Labs 04/14/21 1302 04/15/21 0929 TROPONINI <0.034 <0.034 Hemoglobin A1c: Recent Labs 04/14/21 1108 HGBA1C 5.8* Thyroid Function: Recent Labs 04/14/21 1302 TSH 1.11 Inflammatory Markers: Recent Labs 04/14/21 1302 CRP <7.0 Imaging Reviewed: I have independently visualized images Result Date: 04/15/2021 CT ABDOMEN PELVIS W CONTRAST 1. No bowel obstruction. 2. Fluid-filled colon with mild wall thickening and mucosal enhancement involving the ascending colon, without adjacent fat stranding. Correlate for symptoms of diarrhea/mild colitis 3. Status post partial right colectomy with unremarkable ileocolic anastomosis. 4. Normal caliber biliary tree, status post cholecystectomy. 5. Prior hysterectomy. Result Date: 04/15/2021 XR ABDOMEN 1 VIEW The bowel gas pattern is unremarkable. Air-filled colon is noted. No free air identified. Surgical sutures are seen in the right abdomen in this patient with ileocolic anastomosis. Prior cholecystectomy. Surgical clips project over the pelvis. Contrast is present within the bladder in this patient with recent contrast-enhanced CT. Assessment/Plan Assessment Erika Husain is a 61 y.o. female with a PMHx significant for asthma, T2DM, SHORE, HTN, hemorrhoids, and fibromyalgia who presented to the ED with a several year history of diarrhea and emesis that has gotten progressively worse in the previous months and especially worse in the past week. She is currently hemodynamically stable, but still without clear etiology of acute symptomology. Plan Acute on chronic proctocolitis: Potentially infectious in etiology. Four-year history of loose stools and vomiting, with occasional blood streaking, with sx starting after R hemicolectomy. More severe in the last several months, and even more severe in the last week. Acute symptoms possibly 2/2 infection. However, given chronicity of symptoms, this could as well be due to undiagnosed inflammatorybowel disease with an acute flare. CT A/P (04/14) revealed sigmoid colon and rectum hyperemia and mild wall thickening, but did not reveal diverticulitis or other etiologies. Repeat CT A/P (04/15) doneout of concern for surgical abdomen/obstruction following AM rapid response (afebrile, tachycardic, tachypneic, with shaking and diaphoresis) showed no evidence of obstruction. - F/u stool studies once patient has BM, including C. Diff, usual and unusual fecal pathogens, giardia/crypto, tTG - Nausea control: Zofran 4mg q4h PRN - Pain control: IV morphine 0.5 mg q4h PRN, scheduled tylenol 1 g q6h - NPO - Will consider GI consult for inpatient colonoscopy in case - Unasyn - Blood cultures pending - ACS following, appreciate recs - No indication for acute surgical intervention - Colonoscopy - Colorectal consult ?? Hypokalemia and hypomagnesemia: K 3.8. Mg <0.5. - Potassium packets BID - S/p Mg 2 g x3 - Daily lytes - Replete prn ?? Asthma exacerbation: Still remains short of breath, although her wheezing is slightly better. She has been a little tachypneic (~20). - Dulera instead of PACKAGE LINE RELIEF OPERATOR symbicort, PACKAGE LINE RELIEF OPERATOR albuterol - Duonebs q6h - Consider steroids in AM if dyspnea worsens UTI - Enterococcus on urine cx - Unasyn as above Chronic/resolved problems External hemorrhoids - Hydrocortisone 2.5% BID - Will likely need outpatient excision T2DM: Glucose 50-100s. A1c 5.8. - SSI - Glucose checks TID w/ meals and QHS Insomnia - Hold PACKAGE LINE RELIEF OPERATOR trazodone 100 mg QHS - Ramelteon QHS prn VTE Prophylaxis Ambulate Discharge Plan Home or self care with resolution of electrolyte abnormalities and GI symptoms Consults Surgery Victor Hugo Kaba, MS4 Pager # [phone] 04/15/2021 16:49 ATTENDING ATTESTATION: Date of service: 04/15/2021 I was present with the medical student for the history, exam, and medical decision making documented by him/her. I have personally performed my own physical exam and medical decision making. I have verified and agree with (or, as indicated, have edited) the medical students documentation. Pt with worsening abd pain, rigors this am. Tachy but otherwise maintaining BP. Profound electrolyte derangements with hypomag, hypok, hypophos. Elevated lactate. Correcting electrolytes, giving IVFs, ativan with some improvement in sx. Repeat CT a/p, ACS consulted. Re-demonstrated proctocolitis. No obstruction, perforation. No surgical intervention recommended. Has had no further diarrhea, unable to obtain stool samples at this point. May need colonoscopy. Jhon Rdz MD Internal Medicine Hospitalist 04/15/2021 18:14 * Mimi Bearden RN - 04/15/2021 1342 EDT Rapid Response Team Nursing Note (SBAR) Team Times: Call Type: GAS PLANT DISPATCHER Call Time: 1004 Call Date: 04/15/21 Call Originator: Nurse RUBA Arrival at Bedside: 1010 Team Completion Time: 1030 RUBA Completion Time: 1030 Code Status: Full Initial Vitals: BP: 102/58 Heart Rate: 92 BPM Resp: 20 SpO2: 94 % Temp: 36.5 ??C (97.7 ??F) Temp src: Oral Neurological Assessment:pt awake, alert , conversant Cardiovascular Assessment:skin pink ,warm dry , ST on telemetry Respiratory Assessment:pt is hyperventilating and having carpal / pedal spasm from hyperventilating O2 Device: None O2 Flow Rate (L/min): 0 l/min Breath Sounds Bilateral: Expiratory wheezes;Clear GI/ Assessment: Urinary Status: Continent;Voiding Patient Status:called for concern of rigors Team Members: RUBA (Name): Luzma Sprague RN , Mimi Bearden RN Hospitalist (Name): Dr Rdz ANC (Name): kiarra Michele RN Respiratory (Name): Julio GAS PLANT DISPATCHER Other Members (Name): Dr Shirley Birmingham Call debriefed with: Nurse;Doctor;Charge Nurse;ANC Additional Detail: Pt is 61 yr old female admitted for AP , called for concern of rigors/ ? Tremors , on arrival pt sitting upright , hyperventilating RR 28 with associated carpal /pedal spasm , having jerking movements of all extremities , assisted with deep breathing exercises , medicated as ordered by primary RN with Ativan and dilaudid with good relief of symptoms, blood work drawn , Mg+ repleted , plan is for continued monitoring , IVF rehydration , RUBA team to monitor and assist as needed * Denise Goldstein RT - 04/15/2021 1317 EDT Images from the original note were not included. Respiratory Consult/Progress Note Indications for Respiratory therapy: hx asthma Data Vitals: Heart Rate: 92 BPM, Resp: 20, SpO2: 99 % FIO2/O2 Device: O2 Flow Rate (L/min): 0 l/min, , O2 Device: None, FIO2 %: 21 % RT Orders: Qid duoneb Bid dulera Protocol Scoring: Bronchodilator/Inhalation Therapy Frequency Bronchodialator - Clinical Indications: History of bronchospasm Breath Sounds: Faint wheezing, decreased throughout Response: Mild response, increase subjective per GROCERY CLERK Pulse: <100 Resp Rate: 18-25 SOB: With exertion Total Score: 5 Comment:: qid Airway Clearance Therapy Frequency Airway Clearance - Clinical Indications: No clinical indications Breath Sounds: Clear / diminished Sputum: Small (tsp) / None Consistency: None Cough Effort: Strong/ non-productive Color: None Total Score: 0 Hyperinflation Therapy Frequency Hyperinflation - Clinical Indications: No clinical indications Breath Sounds: Other Surgery: No X-Ray / Atelectasis: No O2 Requirements: O2 at baseline Mobility Status: Mobile / at baseline Total: 1 Action/Events Respiratory events; Patient tolerated all treatments well today. She has expiratory wheezes before treatment and aeration improves after therapy. Continue with current therapy. DENISE GOLDSTEIN RT 04/15/21 * Victor Hugo Machuca, RT - 04/15/2021 1214 EDT Respiratory GAS PLANT DISPATCHER Call Note The patient's respiratory status has been evaluated during this GAS PLANT DISPATCHER call. Heart Rate: 103 BPM, Resp: 22, SpO2: 98 % on 1L nasal cannula. Respiratory therapy intervention was not required and an ABG was not obtained at this time. VICTOR HUGO MACHUCA, RT 04/15/21 * Talib Jorge RN - 04/15/2021 1012 EDT Initial Case Management/Social Work Assessment and Discharge Plan/Readmission Risk Assessment REASON FOR ADMISSION: Generalized abdominal pain Patient understands reason for admission: Yes PATIENT INFO VERIFIED: PCP: MARIA Carballo - office in [place], [place] ([phone]) Contact Info: Daughter Gifty ([phone]); Son Barney ([phone]) Address: [address] [place] [id number] Type of housing (single family, condo, apartment, nursing home, single room occupancy, [facility] funded hotel room, group m[facility]) - Apartment Who does the patient live with? Roommate Ernst Does the patient have access to their own bedroom/bathroom/kitchen - or is it shared with others? Shared LIVING ARRANGEMENTS AND ACCESSIBILITY ISSUES: Living Arrangements: Apartment, Friends Levels: 1 Stairs to enter: 1 Handicap access: None Bathroom located on bedroom level?: Yes What in home social supports are available to the patient? Friends / neighbors Is 22/05 care available? No ADVANCED DIRECTIVES, POA &/or COLST IN PLACE: Healthcare Directive: Yes, patient has advance directive for healthcare treatment Type of Healthcare Directive: Health care treatment directive Copy in Chart: Yes, previous copy on file @ [facility] DIRECTIVES FOR FINANCES: Directive For Finances: No TRANSPORTATION: Transportation: Family, Self Patient expects to be discharged to: Home with family CULTURAL, ZOROASTRIAN and/or LANGUAGE factors affecting health care/discharge planning: Spiritual/Cultural Requests: None Language/Literacy Needs Do you need us to provide any communication aids or devices?: No Insurance Information: Medical Insurance: Yes Type of insurance: Medicare, Medicaid Referred to patient financial services: No Nutrition: Regular Diet (Low PACKAGE LINE RELIEF OPERATOR risk for food insecurity) DISCHARGE RISK ASSESSMENT: Diagnosis of COPD;Diagnosis of Diabetes;Requires assistance with ADLs/IADLs Total # selected above: Tentative plan to address the risk of re-hospitalization for those at HIGH MODERATE RISK: Bring risk factors to attention of team to be addressed RAPT TOOL: Age: 50-65 Gender: Female Ambulation distance: 1-2 blocks Gait device: Crutch/Walker Community Services: Home health, MOW, SASH-none of one time a week Will you live with someone who will care for you?: No RAPT Tool Score: 5 Patient expects to be discharged to: Home with family SBIRT: SASQ (Single Alcohol Screening Question) How many times in the past year have you had 4 or more drinks in a single day?: Never How many times in the past year have you used an illegal drug or used a prescription medication fornon-medical reasons?: Never Intervention in place/initiated?: No, not indicated FUNCTIONAL STATUS: Activities patient requires assistance: None Assistive Device: Four wheel walker, Cane COMMUNITY RESOURCES/SUPPORTS: Primary Care Provider: MARIA Carballo PCP Verified: Yes Specialists: Cardiology (Cards/ GI) Type of Home Health Services: None DME Provider: N/a Pharmacy: [id number] - [place], [place] - [address] [facility] [address] [facility] - [facility] [address] [facility] [address] [facility] [address] [facility] ([facility]) - [facility] [address] [facility] [address] [facility] [id number] [id number] - [place], [place] - [address] [facility] [address] [facility] [phone] [address] Home Health: No current services Other: N/a POST HOSPITAL TRANSITION PLAN: Presented to [facility] 2021 with acute on chronic N/V/D, decreased appetite and po intake and significant weight loss. On enteric precautions with r/o for ciff. Patient with significant shaking at bedside this morning 04/15 feeling hot. States she felt this way for about an hour yesterday although symptoms resolved and started back up again this morning. Vitals taken and WNL/ afebrile; O2 97-98% RA. Resp present for treatment. Labs/ viral panel/ blood gas ordered. PMH/ Anxiety/ depression, Asthma, T2DM, SHORE, HTN, Fibromyalgia, R mei- colectomy, Endometrial ca Denies current tobacco use (quit), No or very occasional alcohol use, +Marijuana use - to assist with sx/ n/v Has been vaccinated for Covid with Roma. Both children who will also be visiting at hospital have also been vaccinated. Patient resides in one level apartment with one stair to enter in [facility] with roommate Ernst of 6 years (she has know Ernst since grade school and was previous partner). Erika raised concerns about Ernst's alcohol intake and that he becomes biligerent. Pt A&Ox3; typically independent at baseline with majority of A/Iadl's including driving. Does use cane for assistive device at home. Has access to Rollator walker if needed. Is not connected with any home health services or community supports in her area. Has been in [place] for approx one week visiting family and staying with her daughter Gifty ([phone]). Will follow up with patient at later time for any recommended needs at discharge dependent on clinical course. /tlvRN pg [id number] TALIB JORGE RN 04/15/2021 10:12 * Victor Hugo Machuca, RT - 2021 1192 EDT Respiratory Consult/Progress Note Indications for Respiratory therapy: Asthma with home routine medications Data Vitals: Heart Rate: 102 BPM, Resp: 22, SpO2: 97 % FIO2/O2 Device: Room air RT Orders: Q4 Albuterol MDI Q4 PRN Albuterol MDI BID Dulera Protocol Scoring: Bronchodilator/Inhalation Therapy Frequency Bronchodialator - Clinical Indications: History of bronchospasm Breath Sounds: Any abnormal BS decreased Response: No change / no treatment Pulse: >100 Resp Rate: 18-25 SOB: With exertion Total Score: 4 Comment:: Continue home routine Airway Clearance Therapy Frequency Airway Clearance - Clinical Indications: No clinical indications Breath Sounds: Clear / diminished Sputum: Small (tsp) / None Consistency: None Cough Effort: Strong/ non-productive Color: None Total Score: 0 Hyperinflation Therapy Frequency Hyperinflation - Clinical Indications: No clinical indications Breath Sounds: Other Surgery: No X-Ray / Atelectasis: No O2 Requirements: O2 at baseline Mobility Status: Mobile / at baseline Total: 1 Action/Events Patient with complaints of abdominal pain, nausea, vomiting, chills, and diarrhea is being admittedto the floors under the Internal Medicine service. Patient has a history of asthma and takes Albuterol MDI Q4, and BID Symbicort at home. She reports that she does use a spacer. Patient denies home oxygen use and YESENIA. Patient is independent with MDI use and administration can be turned over to RN. RT ARASH 04/14/21 documented in this encounter H&P Notes * Jhon Rdz MD - 2021 1541 EDT Medicine Admission History & Physical Service Date: 2021 Admit Date: N/A Primary Care Provider: German Garzon Chief Complaint: Acute on chronic diarrhea and emesis HPI Erika Husain is a 61 y.o. female with a PMHx of asthma, T2DM, SHORE, HTN, hemorrhoids, fibromyalgia, R hemicolectomy, cholecystectomy, appendectomy, endometrial cancer s/p hysterectomy and bilateralsalpingo-oopherectomy, who presents to the ED with a several year history of diarrhea and emesis that has gotten progressively worse in the last few weeks and even more so this past week. For the last four years, she has been experiencing diarrhea and some vomiting, sometimes with dark red blood streaking in both the stool and the vomitus. She describes both her stool and vomitus as being dark yellow in color. She states that these symptoms had started progressing over the last several weeks, and then in the past week, become much more severe. Over the last few years, she has lost a lot of weight, down to 169 lbs from ~300s. She says it is due to a lack of appetite. More recently, over the last few weeks, her appetite has decreased even more and she cannot keep food down, and she started to lose weight faster. Her symptoms are associatedwith moderate to severe diffuse abdominal pain. She states that she has had cold and hot spells over the last few weeks. She endorses lightheadedness and dizziness, even when lying down. She feels short of breath and is coughing, and she attributes this to not having taken her nebulizer the last few days. She is having diffuse body pains from her fibromyalgia, but she otherwise denies joint pains. She denies tobacco use and alcohol use, but she admits to smoking marijuana over the past several years, chiefly to help with her nausea. Her marijuana use has become more regular recently due to increasing symptoms. In the ED, she was afebrile and was tachycardic to the 120s. She was hypokalemic to 2.6 and had Tbili 1.7. UA showed 11-50 WBCs, 3-10 TBCs, with few squamous cells. CTAP showed signs of possible mildinflammation in the sigmoid colon and rectum, along with hepatic steatosis and a hepatic cyst. She was given 1 L IV LR bolus, 4 mg IV ondansetron, and 20 mEq IV potassium chloride. Review of Systems A complete 10 point ROS was performed and pertinent positive and negative findings listed in HPI, otherwise negative. Past Medical History: Diagnosis Date ??? Anxiety ??? Arthritis osteoarthritis, psoriatic arthritis ??? Asthma ??? Cancer (HCC-CMS) ??? Complication of anesthesia respiratory ??? Constipation ??? Depression ??? Factor PI ??? Fibromyalgia ??? Fibromyalgia ??? GERD (gastroesophageal reflux disease) ??? Hyperlipidemia ??? Hypertension ??? IBS (irritable bowel syndrome) ??? IBS (irritable bowel syndrome) ??? Lung disease ??? Lung disease ??? Obesity ??? confirmed 1979,1982 2 vaginal deliveries Past Surgical History: Procedure Laterality Date ??? APPENDECTOMY ??? CARPAL TUNNEL RELEASE 22 years ago right endoscopic by dr. Hamilton ??? COLONOSCOPY 2010 ??? HERNIA REPAIR ??? JOINT REPLACEMENT 04/15/2010 Right TKR ([place]) ??? KNEE SURGERY right ??? BRITTANY AND BSO 06/11/2013 Social History Tobacco Use ??? Smoking status: Former Smoker Packs/day: 1.00 Years: 20.00 Pack years: 20.00 Types: Cigarettes Quit date: 04/23/1996 Years since quittin.9 ??? Smokeless tobacco: Never Used ??? Tobacco comment: quit 20+ yr ago Substance Use Topics ??? Alcohol use: Yes Comment: very occasional Family History Problem Relation Age of Onset ??? Diabetes Mother ??? High Blood Pressure Father ??? High Cholesterol Father (Not in a hospital admission) Allergies Allergen Reactions ??? Latex, Natural Rubber [...] Soy Constipation ??? Wheat Containing Prod Constipation Objective Vitals Temp: [36.7 ??C (98.1 ??F)] , Heart Rate: [90 BPM-102 BPM] , Pulse: [120] , Resp: [17-24] , BP: (110-143)/(49-93) , SpO2: [95 %-99 %] , Numeric Pain Level (Scale 1-10): 6 Weight: Weight : 76.7 kg (169 lb) Body mass index is 33.01 kg/m??. Physical Exam General: Alert, aware, and oriented to person, place, and time. In mild distress. Pleasant and cooperative. HEENT: Normocephalic/atraumatic. Conjunctivae clear and non-icteric. Extraocular movements intact. Cardiovascular: Normal rate, regular rhythm. No murmurs, rubs, or gallops. S1 and S2 are heard and are of normal intensity. Respiratory: Prominent end-expiratory wheezes bilaterally. Good, symmetric chest expansion with good pulmonary effort. No signs of respiratory distress. Abdominal: Abdomen soft, slightly distended, and diffusely tender to palpation. No rebound or guarding. Extremities: Warm and well-perfused. No edema, erythema, or cyanosis. Dorsalis pedis pulses 2+ bilaterally. Neurological: Alert, aware, and oriented to person, place, and time. Fluent speech. No facial droop. Purposefully moving all extremities against gravity. Psychiatric: Appropriate mood and affect. Pressure Ulcer Present on admission? No Labs I have personally reviewed Recent Labs 04/14/21 1108 WBC 10.55 RBC 4.34 HGB 12.7 HCT 35.5 MCV 82 MCH 29.3 MCHC 35.8 PLT 453* NEUTROABS 6.98 Recent Labs 04/14/21 1108 NA 145 K 2.6* CL 100 CO2 26 BUN 16 CREATININE 1.12* CALCIUM 9.4 LABALBU 4.6 Recent Labs 04/14/21 1302 TROPONINI <0.034 Recent Labs 04/14/21 1108 TBIL 1.7* ALKPHOS 51 AST 43 ALT 29 LIPASE 238 Recent Labs 04/14/21 1240 04/14/21 1246 COLOR -- Yellow CLARITYU -- Slightly Cloudy* GLUCOSEU -- Negative BILIRUBINUR -- Negative KETONES -- 1+* LABSPEC -- <=1.005 PHUR -- 6.0 PROTEINUA -- 1+* NITRITE -- Negative LEUKESTER -- Negative WBCU 11 - 50* -- RBCU 3 - 10* -- BACTERIA None Seen -- LABCAST <=10 -- Imaging Result Date: 2021 CT ABDOMEN PELVIS W CONTRAST 1. The sigmoid colon and rectum demonstrate mild mucosal hyperemia and mild wall thickening but without without evidence of surrounding inflammatory stranding. These findings may represent a mild proctocolitis in the appropriate clinical setting. 2. Hepatic steatosis. 3. Hepatic cyst. Assessment Erika Husain is a 61 y.o. female with a PMHx significant for asthma, T2DM, SHORE, HTN, hemorrhoids, and fibromyalgia who presents to the ED with a several week history of diarrhea and emesis that has gotten progressively worse in the last week. Plan Acute on chronic proctocolitis: Likely infectious in etiology. Several year history of loose stoolsand vomiting, with occasional blood streaking. More severe in the last several weeks, and even moresevere in the last week. Acute symptoms likely 2/2 infection. However, given chronicity of symptoms, this could as well be due to undiagnosed inflammatory bowel disease with an acute flare. Less likely ischemic colitis. CT A/P revealed sigmoid colon and rectum hyperemia and mild wall thickening, but did not reveal diverticulitis or other etiologies. - IV LR 75 cc/hr - Stool studies including C. Diff, usual and unusual fecal pathogens, giardia/crypto, tTG - Zofran q4h prn - Pain control: IV morphine 0.5 mg q4h prn, scheduled tylenol 1 g q6h - Diet as tolerated - Will consider GI consult for inpatient colonoscopy in case - Hold abx for now; will broaden to CTX/Flagyl if febrile - Blood cultures pending Hypokalemia - S/p IV K 20 mEq x2 - Lytes recheck at 1800 - Replete prn Asthma exacerbation - Dulera instead of PACKAGE LINE RELIEF OPERATOR symbicort, PACKAGE LINE RELIEF OPERATOR albuterol - Duonebs q6h - Consider steroids if dyspnea worsens External hemorrhoids - Hydrocortisone 2.5% BID - Will likely need outpatient excision T2DM: Glucose 179 on admission. Not on PACKAGE LINE RELIEF OPERATOR meds. Last A1c in 2012 was 6.1. - Ordered A1c - SSI - Glucose chks TID w/ meals and QHS Insomnia - Hold PACKAGE LINE RELIEF OPERATOR trazodone 100 mg QHS - Ramelteon QHS prn VTE Prophylaxis Ambulate; low MIRTH score Code: Full Discharge Plan Home or self care upon resolution of GI symptoms Consults None Admission status Initiate observation status for acute diarrhea Victor Hugo Brannonshanda, MS4 Pager # [phone] 17:10 I was present with the medical student for the history, exam, and medical decision making documented. I have edited the medical student note as appropriate. Toi Hewitt MD Internal Medicine, PGY-1 pager [phone] 04/14/21 17:53 ATTENDING ATTESTATION: Date of service: 2021 The resident was present with the medical student for the history, exam, medical decision making documented by him/her. I have personally performed my own physical exam and medical decision-making. Ihave verified and agree with (or, as indicated, edited in blue) the combined medical student's/resident's documentation. 61yo woman w/hx of DM2, SHORE, HTN, fibromyalgia. Presented to the ED with acute on chronic diarrhea, N/V. Time course somewhat difficult to identify as pt reports symptoms for years but worse perhapsover past weeks, but notably worse past week. In the ED found tachycardic. Labs notable for K: 2.6.Exam without acute abdomen, diffuse abd pain L > R. CT a/p with only mild proctocolitis. Presentation likely acute infection with background chronic diarrhea. Ddx broad, however, ?IBD/microscopic colitis, ?celiac, ?cannabis hyperemesis. ?functional GI disorder causing N/V, ?salomon-bolton, ?gastric outlet obstruction. Pt does have some alarm feature with occasional bloody BM. Sig weightloss since mei- colectomy, possible additional 10lbs past 2mo. Will start with supportive care as above and infectious w/u along with inflammatory markers, celiac, tsh, a1c. Significant external hemorrhoids noted but given presentation may need colonoscopy. Pt notably wheezy on exam, last asthma exacerbation treated 2mo ago. Will treat with nebs, consider steroids. Jhon Rdz MD Internal Medicine Hospitalist, pager: [phone] 18:14 documented in this encounter Consult Notes * Avel Bishop MD - 04/16/2021 2779 EDT Inpatient Consult Note Admit Date: 2021 Date of Service: 04/16/2021 Requesting Physician: Dr. Rdz Specialty Completing Consult: Colorectal surgery Reason for Consult: Abdominal pain; proctitis HPI: History was limited due to patient's inability to remain awake. The following information was obtained through chart checking and patient's account of recent medical history. Erika Husain is a 61 y.o. female with asthma, T2DM, SHORE, HTN, hemorrhoids, fibromyalgia, R hemicolectomy, cholecystectomy, appendectomy, endometrial cancer s/p hysterectomy and BSO who presented to the ED w/ several year History of diarrhea, vomiting, weight loss and lack of BM. Colorectal surgery was consulted for colitis noted on CT scan. Erika states that what prompted her to come to the hospital was increasing abdominal and bottom pain. Chart review indicated that her last BM was 3 daysago, though she states today that she had one yesterday. She has lost over 100lbs over the past years, but denies fevers or night sweats, but endorses chills. She unintentionally has lost that weight. Having increased nausea and vomiting of yellow fluid recently but has not been able to tolerate her daily marijuana due to these sxs. She also notes blood stools in the past; on toilet paper. Statesher last colonoscopy was many years ago and she was told to get them every 5 years. Unable to recall the results. FHX: Father has cancer and another relative w/ h/o colon cancer Has a personal history of uterine cancer. No h/o ovarian or breast cancer SHx: Lives in [place] with a roommate. Has been in [place] for the past 2 weeks visiting her daughter, Gifty (present today), and grandchildren. Does not smoke cigarettes. Uses marijuana for chronic pain. Does not drink alcohol and denies other drug use. PMH PSH Past Medical History: Diagnosis Date ??? Anxiety ??? Arthritis osteoarthritis, psoriatic arthritis ??? Asthma ??? Cancer (HCC-CMS) ??? Complication of anesthesia respiratory ??? Constipation ??? Depression ??? Factor PI ??? Fibromyalgia ??? Fibromyalgia ??? GERD (gastroesophageal reflux disease) ??? Hyperlipidemia ??? Hypertension ??? IBS (irritable bowel syndrome) ??? IBS (irritable bowel syndrome) ??? Lung disease ??? Lung disease ??? Obesity ??? confirmed 1979,1982 2 vaginal deliveries Past Surgical History: Procedure Laterality Date ??? APPENDECTOMY ??? CARPAL TUNNEL RELEASE 22 years ago right endoscopic by dr. Hamilton ??? COLONOSCOPY 2010 ??? HERNIA REPAIR ??? JOINT REPLACEMENT 04/15/2010 Right TKR ([place]) ??? KNEE SURGERY right ??? BRITTANY AND BSO 06/11/2013 Social History Family History Social History Tobacco Use ??? Smoking status: Former Smoker Packs/day: 1.00 Years: 20.00 Pack years: 20.00 Types: Cigarettes Quit date: 04/23/1996 Years since quittin.9 ??? Smokeless tobacco: Never Used ??? Tobacco comment: quit 20+ yr ago Substance Use Topics ??? Alcohol use: Yes Comment: very occasional Family History Problem Relation Age of Onset ??? Diabetes Mother ??? High Blood Pressure Father ??? High Cholesterol Father Medications Current Facility-Administered Medications Medication Route Frequency ??? acetaminophen (TYLENOL) tablet 1,000 mg oral Q6H ??? albuterol (ACCUNEB) nebulizer solution 2.5 mg nebulization Q4H PRN ??? albuterol inhaler 180 mcg inhalation Q4H PRN ??? ampicillin-sulbactam (UNASYN) 3,000 mg in sodium chloride (NS MBP) 100 mL infusion intravenous Q6H ??? hydrocortisone 2.5 % cream topical BID ??? lidocaine (PF) 10 mg/mL (1 %) injection 2 mg intradermal PRN ??? loratadine (CLARITIN) tablet 10 mg oral DAILY ??? lovastatin (MEVACOR) tablet 20 mg oral DAILY ??? mometasone-formoterol (DULERA) 100-5 mcg/actuation inhaler 2 Puff inhalation BID ??? morphine injection 0.5 mg intravenous Q4H PRN ??? ondansetron (PF) (ZOFRAN) injection 4 mg intravenous Q4H PRN ??? predniSONE (DELTASONE) tablet 40 mg oral DAILY ??? pregabalin (LYRICA) capsule 50 mg oral TID ??? prochlorperazine edisylate (COMPAZINE) injection 10 mg intravenous Q6H PRN ??? ramelteon (ROZEREM) tablet 8 mg oral AT BEDTIME PRN ??? thiamine (VITAMIN B-1) 100 mg in sodium chloride (NS) 0.9 % 50 mL IVPB intravenous DAILY Allergies Allergies Allergen Reactions ??? Latex, Natural Rubber [...] Soy Constipation ??? Wheat Containing Prod Constipation Review of Systems: A ten point review of systems was performed and was negative except for pertinent positives noted in the HPI Objective/Physical Exam: VS: Patient Vitals for the past 8 hrs: BP Resp Temp SpO2 O2 Device 04/16/21 1415 110/66 16 37.7 ??C (99.9 ??F) 96 % None 04/16/21 0912 -- 16 -- 97 % -- Physical Exam General Appearance: falls asleep during history, easily wakens when tapped HEENT: normocephalic, atraumatic, moist mucous membranes, anicteric sclera Lung: clear to auscultation bilaterally Heart: regular rate and rhythm Abdomen: Obese abdomen, soft, non distended, tender to deep palpation of left lower quadrant Rectal: Right external hemorrhoid present, tender to palpation; unable to complete rectal exam due to pain. No gross blood noted. Extremities: Warm and well perfused, no edema Skin: Skin color, temperature, turgor normal. No rashes or lesions Neuro: alert and oriented to self, time, and place Labs: NA CBC: Lab Results Component Value Date WBC 7.02 04/16/2021 RBC 3.32 (L) 04/16/2021 HGB 9.8 (L) 04/16/2021 HCT 28.8 (L) 04/16/2021 MCV 87 04/16/2021 MCH 29.5 04/16/2021 MCHC 34.0 04/16/2021 PLT 306 04/16/2021 NEUTROABS 4.65 04/16/2021 SEDRATE 12 03/05/2012 BMP: Lab Results Component Value Date NA 143 04/16/2021 K 5.0 04/16/2021 CL 108 04/16/2021 CO2 26 04/16/2021 BUN 13 04/15/2021 CREATININE 0.70 04/16/2021 GLUCOSEFINGE 117 (H) 06/14/2013 CALCIUM 8.1 (L) 04/16/2021 MG 2.1 04/16/2021 PHOS 3.5 04/16/2021 LABALBU 4.6 2021 LFT: Lab Results Component Value Date TBIL 1.3 04/16/2021 ALKPHOS 50 04/16/2021 AST 33 04/16/2021 ALT 26 04/16/2021 LIPASE 238 2021 Imaging: XR abdomen FINDINGS: The bowel gas pattern is unremarkable. Air-filled colon is noted. No free air identified. Surgical sutures are seen in the right abdomen in this patient with ileocolic anastomosis. ?? Prior cholecystectomy. Surgical clips project over the pelvis. Contrast is present within the bladder in this patient with recent contrast-enhanced CT. CT abdomen pelvis w contrast IMPRESSION 1. No bowel obstruction. 2. Fluid-filled colon with mild wall thickening and mucosal enhancement involving the ascending colon, without adjacent fat stranding. Correlate for symptoms of diarrhea/mild colitis 3. Status post partial right colectomy with unremarkable ileocolic anastomosis. 4. Normal caliber biliary tree, status post cholecystectomy. 5. Prior hysterectomy. Assessment: Erika Husain is a 61 y.o. female with asthma, T2DM, SHORE, HTN, hemorrhoids, fibromyalgia, R partial hemicolectomy for unresectable villous adenoma, cholecystectomy, appendectomy, endometrial cancer s/p hysterectomy and BSO who presented to the ED w/ chronic abdominal pain, and recently worsening vomiting and diarrhea w/ CT scan showing mild colitis and positive for C diff. On exam she is afebrile, HDS and non peritonitic. C diff explains cause of diarrhea and daily marijuana may well be contributing to her hyperemesis syndrome. Recommendations: -No acute surgical intervention necessary -Consider GI consult -treatment for C. Diff already initiated -outpatient colonoscopy with GI due to chronic symptoms of diarrhea and weight loss -Spoke with daughter about cessation of marijuana -Increased fiber and water intake for external hemorrhoids. Due to extreme pain from NATALIIA, she couldhave anal fissures as well. Could use lidocaine and Sitz baths as well. Plan discussed w/ Dr. Kayli Ang. ALY MIKE MD 04/16/2021 14:27 #[id number] * Vikas Camp - 04/15/2021 1338 EDT Surgery Consult Note Admit Date: 2021 Date of Service: 04/15/2021 Hospital Day: 0 PCP: German Garzon Requesting Physician: Kendell Nielson Completing Consult: Surgery Reason for Consult: Abdominal pain HPI: Patient is a 61 yo female with PMH of asthma, T2DM, SHORE, HTN, hemorrhoids, fibromyalgia, R hemicolectomy, cholecystectomy,appendectomy, endometrial cancer s/p hysterectomy and bilateral salpingo-opherectomy, who presents to the ED with a several year history of diarrhea, vomiting, and no BM or gasreportedly since Monday. Patient states she came in at the urging of her children and felt that she was vomiting somewhat more than normal. She normally throws up about 2-3 times a week since her colon surgery for cecal volvulus, and has lost over 100 pounds. She is normally able to keep down mostof her food and fluids. She endorses may be some more pain but it is unclear whether there is a significant jacket changer the last week, however she does state that she has not been able to tolerate her daily marijuana due to her symptoms. She does usually use this in order to keep her nausea at bay. CT scan in the emergency department was significant only for some distal inflammation in the mucosaof rectum suggestive of proctitis, with no extraluminal free fluid or fat stranding. There is no free fluid or free air. Additionally she had no leukocytosis and was afebrile, hemodynamically stable. She was admitted to the medicine service for evaluation and work-up. She was noted to have increased abdominal pain this morning and a lactic acidosis to 5.8. There was concern for surgical abdomen due to her intense tenderness diffusely, for which surgery was consulted. MEDICATIONS: See MAR PAST MEDICAL Hx: Past Medical History: Diagnosis Date Anxiety Arthritis osteoarthritis, psoriatic arthritis Asthma Cancer ([facility]) Complication of anesthesia respiratory Constipation Depression Factor PI Fibromyalgia Fibromyalgia GERD (gastroesophageal reflux disease) Hyperlipidemia Hypertension IBS (irritable bowel syndrome) IBS (irritable bowel syndrome) Lung disease Lung disease Obesity confirmed 1979,1982 2 vaginal deliveries PAST SURGICAL Hx: Past Surgical History: Procedure Laterality Date APPENDECTOMY CARPAL TUNNEL RELEASE 22 years ago right endoscopic by dr. Hamilton COLONOSCOPY 2010 HERNIA REPAIR JOINT REPLACEMENT 04/15/2010 Right TKR ([place]) KNEE SURGERY right BRITTANY AND BSO 06/11/2013 SOCIAL Hx: Social History Tobacco Use Smoking status: Former Smoker Packs/day: 1.00 Years: 20.00 Pack years: 20.00 Types: Cigarettes Quit date: 04/23/1996 Years since quittin.9 Smokeless tobacco: Never Used Tobacco comment: quit 20+ yr ago Substance Use Topics Alcohol use: Yes Comment: very occasional Drug use: Yes Types: Marijuana ROS: A ten point review of systems was performed. All pertinent positives and negatives are included in HPI. All others are negative. OBJECTIVE: VS current: Temp: 36.5 ??C (97.7 ??F) Pulse: 103 Resp: 20 BP: 102/58 SpO2: 94 % O2 Flow Rate (L/min): 0 l/min FIO2 %: 21 % VS range for last 24 hours: Temp: [36.5 ??C (97.7 ??F)-37.4 ??C (99.4 ??F)] Pulse: [86-110] Resp: [] BP: (102-143)/(49-86) SpO2: [94 %-99 %] I+O: Intake/Output Summary (Last 24 hours) at 04/15/2021 1338 Last data filed at 04/15/2021 1324 Gross per 24 hour Intake 1000 ml Output 550 ml Net 450 ml I&O By Type - 3 Shifts Including Current In: 1000 [I.V.:1000] Out: 550 [Urine:550] Physical Exam: Gen: NAD, laying comfortably in bed Resp: Nonlabored breathing on room air CV: RRR, hemodynamically stable Abd: Soft, obese, nondistended, large midline incision scar, well-healed, tender to deep palpation in all 4 quadrants, with no rebound or guarding, no peritonitis LABS: I have personally reviewed CBC: Lab Results Component Value Date WBC 9.66 04/15/2021 RBC 3.94 04/15/2021 HGB 11.4 (L) 04/15/2021 HCT 32.9 (L) 04/15/2021 MCV 84 04/15/2021 MCH 28.9 04/15/2021 MCHC 34.7 04/15/2021 PLT 437 (H) 04/15/2021 NEUTROABS 4.59 04/15/2021 SEDRATE 12 03/05/2012 BMP: Lab Results Component Value Date NA 142 04/15/2021 K 3.8 04/15/2021 CL 103 04/15/2021 CO2 23 04/15/2021 BUN 13 04/15/2021 CREATININE 0.92 04/15/2021 GLUCOSEFINGE 117 (H) 06/14/2013 CALCIUM 9.4 2021 MG 1.4 (L) 04/15/2021 PHOS 2.2 (L) 04/15/2021 LABALBU 4.6 2021 Coagulation: Lab Results Component Value Date PROTIME 11.8 06/11/2013 PTT 27 06/11/2013 Cardiac markers: Lab Results Component Value Date TROPONINI <0.034 04/15/2021 TROPONINI <0.034 2021 TROPONINI <0.034 06/12/2013 ABGs: No results found for: PHISTAT, PCOISTAT, POISTAT, POCTCO2, [id number], BEART, POCFIO2 LFT: Lab Results Component Value Date TBIL 1.8 (H) 04/15/2021 ALKPHOS 49 04/15/2021 AST 29 04/15/2021 ALT 26 04/15/2021 LIPASE 238 2021 IMAGING: IMPRESSION 1. The sigmoid colon and rectum demonstrate mild mucosal hyperemia and mild wall thickening but without without evidence of surrounding inflammatory stranding. These findings may represent a mild proctocolitis in the appropriate clinical setting. 2. Hepatic steatosis. 3. Hepatic cyst. ASSESSMENT: 61 y.o. female with asthma, T2DM, SHORE, HTN, hemorrhoids, fibromyalgia, R hemicolectomy, cholecystectomy,appendectomy, endometrial cancer s/p hysterectomy and bilateral salpingo-opherectomy, who presents to the ED with a several year history of diarrhea, vomiting, and no BM or gas. Patient with elevated lactic acidosis, initially undetectable magnesium level, proctitis on CT scan, andexquisite tenderness to palpation diffusely, with no evidence of peritonitis. Patient does not appear to have a surgical pathology at this time. Would recommend repeating electrolytes in order to encourage proper bowel function. Patient's pain is not consistent with peritonitis or acute abdomen, and there is nothing on the imaging that would suggest an urgent surgical intervention, however pain may be secondary to patient's fibromyalgia. Chronic diarrhea likely secondary to history of right hemicolectomy, patient's nausea may be related to her significant marijuana use. At this point would recommend further work-up with stool studies, etc. per medicine. If concern regarding CT evidence of proctitis would discuss with colorectal surgery, may need colonoscopy set up, as it appears she has not had one recently. RECOMMENDATIONS: No acute surgical intervention indicated Recommend repeating magnesium>2, potassium >4 to support proper bowel function Discussed CT evidence of proctitis with colorectal surgery, will likely need a colonoscopy ACS to sign off, please call to reconsult or with questions Patient discussed with Dr. Camp. Katy Gonsales MD (PGY-[id number]) 04/15/2021 13:38 Surgery Grinder Setup Operator ACS pager is [phone] Attestation: I performed or was present during the gomez or critical portions of the visit and participated in the management of the patient on 04/15/2021. I agree with the findings and plan of care documented in the resident's/fellow's note. Several years of diarrhea after cholecystectomy and right hemicolectomy (for cecal volvulus). [place] ED at request of her children because of no BM and increased vomiting since Monday (concern of recurrent volvulus). ABD obese, soft, tender throughout, no rebound, no guarding. WBC 9.6 Hct 32 Cr 0.92 Lactic acid 5.[address] abd/p reveals mild mucosal hyperemia in rectum and distal sigmoid colon - no other sig findings IMP Proctitis - likely secondary to chronic frequency of stool Stool frequency is likely multifactorial - post cholecystectomy syndrome as well as loss of ileocecal valve after right hemicolectomy Lactic acidosis - will likely correct after fluid resuscitation Plan No indications for surgical intervention IV hydrate Check stool for blood Would recommend colonoscopy - and colorectal consult. Vikas Camp MD 04/15/2021 16:32 documented in this encounter ED Notes * Eliza Varma RN - [address] Borges wants pt moved to AC/GT for tele monitoring and because of pt current presentation, ED regulatory affairs intern Ravinder notified * Refugio Hyman MA - 2021 1238 EDT 12 Lead EKG Performed by REFUGIO HYMAN MA and shown to Nel Borges MD MPH. * Eliza Varma RN - 2021 1230 EDT 12 Lead EKG Performed by ELIZA VARMA RN and shown to Nel Borges MD MPH. * Joyce Mariscal - 2021 1152 EDT I, JOYCE MARISCAL, notified Dr. BORGES of POTASSIUM 2.6 on 2021 at 11:52. * Nel Borges MD MPH - 2021 1122 EDT This patient received an evaluation and medical screening exam for emergent medical conditions at the [facility] on 2021 Scribe attestation: This documentation is recorded by Joi Juarez acting as Scribe under the direction and presence of Nel Borges MD MPH. Nel Borges, MPH: I personally performed the services recorded by the scribe in my presence. I confirm the scribe's documentation has been reviewed by me to accurately and completely record my work, treatment, procedures, and medical decision making. MARIJA Husain is a 61 y.o. female with PMH including hemorrhoids, appendectomy, hernia repair, R hemicolectomy, cholecystectomy, endometrial cancer, hysterectomy, surgery for SBO about 5 years ago, and diabetes mellitus on metformin who presents to the ED for 1 week of increasing abdominal pain, na usea, vomiting, chillsand diarrhea. Patient is visiting from [place]. For the last month, abdominal pain has worsened. She has experienced intermittent vomiting throughout the month. She has been vomiting every day for the last week with increased frequency. Describes vomiting as blood streaking in yellow bile. Patient has had minimal PO intake and the only intake yesterday was gingerale. Patient also has yellow, brown diarrhea. Patient currently has hemorrhoids. This is abnormal forher. Associated symptoms include chills and diaphoresis. She called her [place] doctor and they recommended she come to the ED today. Denies fever. Patient is vaccinated for COVID-19. Patient notes some he matochezia for 1 month. Describes this as dark blood. Patient notes she was taking azithromycin afew months ago. History was provided by: patient and medical records Patient's pertinent PMH, FH, SH were reviewed and updated PRN. ROS A 10 point review of systems has been performed, otherwise negative please see HPI. Physical Exam Vital Signs Temp: 36.7 ??C (98.1 ??F) Temp src: Temporal Pulse: (!) 120 Heart Rate: 90 BPM Resp: 24 SpO2: 95 % BP: 116/67 BP MAP: 78 mm Hg BP Device: BP Machine BP Patient Position: Sitting BP Cuff Location: Left arm O2 Device: None (Room air) Nursing note and Vitals reviewed. CONSTITUTIONAL: Alert and oriented to person, place and time, appears in no acute distress. HEENT: HEAD: NC, AT, No obvious lacerations or abrasions noted. EYES: Pupils equal, round, reactive to light; extra ocular movements intact; sclera are clear. ENT: Mucous membranes are moist, no obvious erythema, edema, exudates or trauma noted. Nares are clear with no drainage noted. TM's are clear, no erythema or exudate noted. NECK: Normal range of motion, no signs of meningismus, no midline tenderness appreciated. CARDIOVASCULAR: Tachycardic rate, and rhythm noted. No murmurs, rubs, or gallops noted. Bilateral, symmetric upper and lower extremity pulse exam noted. RESPIRATORY: Breath sounds are equal, no audible wheezes, rales or rhonchi noted. No use of accessory muscles of respiration, or retractions noted. BACK: Normal range of motion, no midline tenderness to palpation or percussion, step-offs, erythema, deformities noted. GASTROINTESTINAL: Significant LLQ tenderness. MUSCULOSKELETAL: Normal range of motion of all extremities, no obvious long bone deformities, normal tone appreciated, no obvious tenderness to palpation, erythema, edema, or cyanosis appreciated. HEME/IMMUNOLOGIC: No LAD, ecchymoses, or petechia noted. SKIN: Diaphoretic. No obvious rashes, suturable lacerations, or abrasions noted. NEURO: No focal neuro deficits noted. No pronator drift, negative rhomberg, negative heel to herman, no truncal ataxia, no gait ataxia noted. No focal sensory deficits, or motor deficits appreciated. BUE and BLE strength 5/5. Patellar reflexes are normal. No dysmetria with finger to nose, slurred speech or facial droop noted. PSYCHIATRIC: Patient is alert and oriented to person, place, and time. Memory, judgement and insight appear normal. Laboratory Results Labs Reviewed URINE SEDIMENT (MICRO) WITH REFLEX TO CULTURE - Abnormal Result Value Status Urine RBC Count, Auto 3 - 10 (*) Final Urine WBC Count, Auto 11 - 50 (*) Final Urine Squamous Count, Auto Few (*) Final Urine Hyaline Cast Count, Auto <=10 Final Urine Bacteria Count, Auto None Seen Final Narrative: A Urine Culture test has been reflexively ordered based on result criteria from the Urine Sediment Analysis. Urine Sediment Analysis results are unreliable on urines that are unrefrigerated for >2 hrs or refrigerated >8 hrs. COMPLETE BLOOD COUNT AND DIFFERENTIAL - Abnormal WBC 10.55 Final RBC 4.34 Final Hemoglobin 12.7 Final HCT 35.5 Final MCV 82 Final MCH 29.3 Final MCHC 35.8 Final RDW-CV 14.4 Final RDW-SD 42.0 Final PLT 453 (*) Final MPV 9.2 (*) Final Neutrophils 66.1 Final Lymphocytes 24.3 Final Monocytes 7.6 Final Eosinophils 0.9 Final Basophils 0.7 Final Immature Grans 0.4 Final Absolute Neutrophils 6.98 Final Absolute Lymphocytes 2.56 Final Absolute Monocytes 0.80 Final Absolute Eosinophils 0.10 Final Absolute Basophils 0.07 Final Absolute Immature Grans 0.04 Final Type of Differential: Auto Final COMPREHENSIVE METABOLIC PANEL (CMP) - Abnormal Sodium 145 Final Potassium 2.6 (*) Final Chloride 100 Final CO2 Total 26 Final Glucose 174 (*) Final BUN 16 Final Creatinine 1.12 (*) Final eGFR 54 (*) Final Total Protein 7.5 Final Albumin 4.6 Final Alkaline Phosphatase 51 Final AST 43 Final ALT 29 Final Bilirubin, Total 1.7 (*) Final Calcium 9.4 Final Calculated Calcium 8.9 Final POCT GLUCOSE, INTERFACED - Abnormal Glucose, POC 179 (*) Final HN LAB POC COMMENT (GLUCOSE) Test Performed by Nursing Services Final POCT URINE DIPSTICK, CLINITEK - Abnormal Color, UA Yellow Final Clarity, UA Slightly Cloudy (*) Final Glucose, UA Negative Final Bilirubin, UA Negative Final Ketones, UA 1+ (*) Final Specific Mission, Urine <=1.005 Final Blood, UA Negative Final pH, UA 6.0 Final Protein, UA 1+ (*) Final Urobilinogen, UA 0.2 Final Nitrite, UA Negative Final Leuk Esterase Negative Final HN LAB COMMENT (CLINITEK, UR) Test performed at Emergency Department Final LIPASE - Normal Lipase 238 Final TROPONIN I - Normal Troponin I <0.034 Final Narrative: The results of this assay can be falsely lowered due to the consumption of Biotin. BACTERIAL CULTURE, URINE C. DIFFICILE PCR FECAL BACTERIAL PATHOGENS BY PCR GIARDIA AND CRYPTOSPORIDIUM ANTIGENS POCT URINE CLINITEK (DIPSTICK) - DOES NOT REFLEX Narrative: The following orders were created for panel order POCT URINE CLINITEK (DIPSTICK) - DOES NOT REFLEX. Procedure Abnormality Status --------- ------ POCT URINE DIPSTICK, CLI...[[id number]] Abnormal Final result POCT CSN BARCODE URINE D...[[id number]] Final result Please view results for these tests on the individual orders. POCT CSN BARCODE URINE DIPSTICK HOLD BLUE TOP Hold Hold Final HOLD SST Hold Hold Final Data Interpretation An EKG was obtained an independently interpreted: Sinus rhythm with a rate of 87. Mild J point depression in her lateral leads. Imaging obtained was reviewed and independently interpreted: Imaging Results CT ABDOMEN PELVIS W CONTRAST (Final result) Result time 04/14/21 12:26:07 Final result Impression: 1. The sigmoid colon and rectum demonstrate mild mucosal hyperemia and mild wall thickening but without without evidence of surrounding inflammatory stranding. These findings may represent a mild proctocolitis in the appropriate clinical setting. 2. Hepatic steatosis. 3. Hepatic cyst. Narrative: CT ABDOMEN PELVIS W CONTRAST 2021 11:55 AM Signs and Symptoms/Comments: prior right hemicolectomy for obstruction, concern for SBO verses acute infection, or perforated viscous; LLQ abdominal pain, diverticulitis suspected; Bowel obstruction high-grade suspected Technique: CT of the abdomen and pelvis was performed following the administration intravenous contrast; coronal and sagittal multiplanar reconstructions generated. Comparison: CT abdomen pelvis September 24, 2018 July 17, 2013. Findings: Lower chest: Calcified granuloma in the left lung base. Stable 4 mm nodule in the right lung base is not substantially changed from August 2018. . Hepatobiliary: Hypoattenuation of the hepatic parenchyma is consistent with steatosis. There is a cyst in the left lobe of liver, unchanged. No suspicious hepatic lesion. Gallbladder is surgically absent. Prominence of the common bile duct is consistent with post cholecystectomy status. Spleen, pancreas, adrenal glands: No abnormalities. Kidneys, ureters, bladder: The kidneys are normal in size and enhance symmetrically. No hydronephrosis, nephrolithiasis, or suspicious renal mass. Ureters are normal in caliber. There is underdistended, and therefore not well assessed. Uterus, ovaries: Uterus is surgically absent. No adnexal mass. Tubal ligation clips are present. Bowel: An ileocecal anastomosis is seen in the right lower quadrant. Small bowel loops are normal in caliber, without evidence of obstruction. The sigmoid colon and rectum demonstrate mild mucosal hyperemia mild wall thickening but no evidence of surrounding inflammatory stranding. Peritoneal cavity / Subperitoneal space: No free fluid or free air. Lymphovascular: Abdominal aorta is normal in caliber. Stable francisco hepatic lymph node measuring topnormal in size is likely reactive. Abdominal wall: Postsurgical changes are seen in the anterior abdominal all. No bowel containing hernia. Musculoskeletal: Degenerative changes in the lower lumbar spine. No suspicious osseous lesion or acute fracture. Expressive Art Therapist: No additional findings. Laboratory results independently reviewed, significant for: Hypokalemia 2.6. Glucose 174. Negative troponin. Urine showed negative nitrite, negative leuk esterase, 1+ ketones. Procedures Procedures None ED course A medical screening exam was performed. MEDICAL DECISION MAKING: Erika Husain is a 61 y.o. female with PMH including hemorrhoids, appendectomy, hernia repair, R hemicolectomy, cholecystectomy, endometrial cancer, hysterectomy, SBO, and diabetes mellitus on metformin who presents to the ED for 1 week of increasing abdominal pain, nausea, vomiting, and diarrhea. Differential Diagnosis includes but is not limited to PUD, GERD, Acute Cholecystitis, Biliary Dyskinesia, Pancreatitis, Symptomatic Cholelithiasis, Perforated Viscous, SBO, Diverticulitis, Appendicitis, Hepatitis, UTI, Constipation, Intra-abdominal Neoplastic Process, STI, Renal Stone, Ovarian Torsion, New Onset . ASSESSMENT AND ED COURSE: Patient was seen and examined. IV placed. Labs were obtained including troponin, urine micro, bacterial culture, CMP, lipase, and CBC. Physical Exam revealed significant LLQ tenderness, tachycardic 120s, and diaphoretic. Laboratory studies revealed Hypokalemia 2.6. Glucose 174. Negative troponin. Urine showed negative nitrite, negative leuk esterase, 1+ ketones. EKG revealed sinus rhythm with a rate of 87. Mild J point depression in her lateral leads. Imaging was obtained, including CT A/P, and revealed the sigmoid colon and rectum demonstrate mild mucosal hyperemia and mild wall thickening but without without evidence of surrounding inflammatory stranding. These findings may represent a mild proctocolitis in the appropriate clinical setting. Hepatic steatosis. Hepatic cyst. Patient was treated with 1L IV LR bolus, 4 mg IV Zofran, and 20mEq IV potassium chloride. (1415) Discussed patient's case with admitting hospitalist. They agreed to admit the patient. Upon reassessment it was felt that the patient was safe for disposition to Internal Medicine under the care of Dr. Jhon Rdz. Nel Borges MD, MPH ED Attending Clinical Impression/Disposition Admitted Final diagnoses: Generalized abdominal pain Colitis The patient's pain was managed to an adequate level weighing risk vs. benefit of further medications. Upon departure from the Emergency Department, the patient's pain was 5 on a zero to ten scale. Any further pain treatment will be at the discretion of the provider following up with the patient based on their clinical assessment. Condition at departure from the Emergency Department: Stable Follow-Up No follow-up provider specified. Medications No current facility-administered medications for this encounter. Current Outpatient Medications Medication ??? acetaminophen (TYLENOL) 325 mg tablet ??? albuterol (PROVENTIL HFA, VENTOLIN HFA) 90 mcg/actuation inhaler ??? albuterol (PROVENTIL) 2.5 mg /3 mL (0.083 %) nebulizer solution ??? budesonide-formoterol HFA (SYMBICORT) 80-4.5 mcg/actuation HFA Aerosol Inhaler inhaler ??? CALCIUM CARBONATE/VITAMIN D3 (CALCIUM WITH VITAMIN D ORAL) ??? docusate sodium (COLACE) 100 mg capsule ??? ferrous gluconate (FERGON) 324 mg (38 mg iron) tablet ??? fluocinonide (LIDEX) 0.05 % cream ??? fluticasone (FLONASE) 50 mcg/actuation nasal spray ??? ketoconazole (NIZORAL) 2 % cream ??? loratadine (CLARITIN) 10 mg tablet ??? lovastatin (MEVACOR) 20 mg tablet ??? lubiprostone (AMITIZA) 24 mcg capsule ??? MULTIVITAMINS (MULTIVITAMIN ORAL) ??? nabumetone (RELAFEN) 500 mg tablet ??? polyethylene glycol (GLYCOLAX) 17 gram/dose powder ??? pregabalin (LYRICA) 50 mg capsule ??? traZODone (DESYREL) 100 mg tablet ??? traZODone (DESYREL) 100 mg tablet ??? zafirlukast (ACCOLATE) 20 mg tablet documented in this encounter Miscellaneous Notes * Plan of Care - Gregory Orlando RN - 04/18/2021 1529 EDT Data: Pt is A&OX3, VSS. Pt CG to go to the bathroom, and to go for walk. Rating pain 6/10 on her abdomen. Pt will be discharge during the shift. Action: Assessment performed, administered medications per emar, hourly check performed, reviewed discharge paperwork with a patient. Removed IV without complications. Response: Pt verbalized that she understood a discharge paperwork. Pt left with her daughter. GREGORY ORLANDO RN 04/18/2021 17:07 * Plan of Care - Janie Rueda RN - 04/18/2021 0302 EDT Data: Assumed care of pt at 1900. A/Ox3, assist x 1 OOB w walker. Increasing strength and ability to ambulate more steadily and reposition self effectively. C/o 4-5/10 abdominal pain w no episodes ofvomiting during this shift. Action: safety admin assistant per eMAR. Routine assessment and hourly checks as documented. Provided contact guard OOB to bathroom PRN. Clustered care and provided a quiet environment to promote sleep. Response: Pt endorsed thorough sleep periods on this shift. Able to make needs known, uses call martin appropriately. Bed in lowest position, safety maintained. WCTM. JANIE RUEDA RN 04/18/2021 3:02 * Plan of Care - Lia Petty RN - 04/17/2021 1857 EDT Problem: Daily Care Plan Goals Goal: Care Plan Documentation Outcome: Ongoing Data: Assumed care of patient at 0700. Pt alert, orientated, able to make needs known. Pt ambulated1 assist to bathroom with walker, endorsed weakness. Pt had complaints of nausea throughout shift, pt vomited once throughout shift. . Abdominal pain, 06/08. Action: Medications administered per MAR. Care clustered to promote resting periods. Pt out of bed to chair to increase mobilty. Pt had PRN antiemetics, effective when administered before ambulation.Pain medication decreased abdominal pain to 6/10 Response: Pt had decrease in pain with PRN medication. Increase ambulation throughout shift. LIA PETTY RN 04/17/2021 18:57 * Plan of Care - Janie Rueda RN - 04/17/2021 0347 EDT Data: Assumed care of pt at 1900. A/Ox3, assist x 1-2 OOB with walker, continent of bladder and bowel. C/o nausea and ULQ abdominal pain. Contact precautions in effect. Action: safety admin assistant per eMAR, including PRNs. Assisted OOB to bathroom numerous times + with repositioning. Response: Increased ambulation is being tolerated fairly well. PRNs effective for nausea and pain management. Pt endorsed being tired, able to achieve adequate sleep by end of shift. [facility] maintained. WCTM. JANIE RUEDA RN 04/17/2021 3:47 * Plan of Care - Juanita Calles RN - 04/16/2021 1714 EDT Data: care assumed at 0700. Patient drowsy but arousable to voice or light touch throughout shift. Endorses continued abdominal pain and nausea. Action: See MAR for meds. Stool specimen sent, +Cdiff. Response: safety and isolation precautions maintained. VSS. JUANITA CALLES RN 04/16/2021 17:14 * Plan of Care - Kathleen Lee - 04/16/2021 1431 EDT Patient is C Diff positive. Maintain enteric contact precautions with soap and water hand washing for duration of admission. Do not cohort. Please contact Infection Prevention with questions ([phone]). * Plan of Care - Talib Jorge RN - 04/15/2021 1455 EDT 04/15/21 1430 Medicare IM Notice IM notice status Patient received notification verbally and in writing while in hospital. IM notice given on admission? Yes Talib Jorge RN [facility] Dept Pg [id number] * Plan of Care - Juanita Calles RN - 04/15/2021 1153 EDT Data: care assumed at 0700, patient awake, A/Ox3, able to verbalize needs. Reports persistent abdominal pain and nausea, improved with medications. Hand tremors noted at this time. Patient with critical Magnesium this morning. Action: See MAR for meds. Around 0940 patient with full body tremors, tachypnic, dyspnic, tachycardic, flushed, reporting light headedness and tingling in hands. Resident and rapid nurse called to assess patient, as patient's symptoms worsened, a full rapid response was called. Team arrived and patient treated according to medical team, see eMAR. Response: Patient stabilized, remains on floor at this time. Family present and updated. JUANITA CALLES RN 04/15/2021 11:54 * Plan of Care - Talib Jorge RN - 04/15/2021 1002 EDT 04/15/21 0900 Observation Notification Notification of outpatient observation services Patient received notification verbally and in writing while in hospital. Obs letter complete? Yes Talib Jorge RN [facility] Dept Pg [id number] * Plan of Care - Brook Galvin RN - 04/15/2021 0400 EDT Data: Assumed care of patient at 1900. A+Ox3, able to make needs known. Reporting /10 abdominal pain, nausea. LR running continuously. Oxygen demand increase - O2 saturation intermittently dipping below 90% (to mid 80's) on room air. Action: Medicated per MAR including PRN morphine. Applied 1L O2 via NC. Assessment, hourly safety checks complete. Clustered care. Response: Patient rested with tolerable pain levels, nausea managed with PRN morphine and zofran. VSS with spO2 > 92% on 1L NC. Will continue to monitor. BROOK GALVIN RN 04/15/2021 4:00 * Plan of Care - Juanita Calles RN - 2021 1838 EDT Data: patient arrived to floor from ED via stretcher, able to stand/pivot w/ AX2 bed. A/Ox3, able to verbalize needs. IVF infusing. Action: admitted with N/V/D, abdominal pain. Patient reports improvement to symptoms with medications given in ED. Response: VSS, call martin within reach. JUANITA CALLES RN 2021 18:39 documented in this encounter Plan of Treatment Not on file documented as of this encounter Goals Goal Patient Goal Type Associated Problems Recent Progress Patient-Stated? Author Blood Pressure < 130/80 Blood Pressure Asthma 133/57(2020 14:39 EDT) No Gibson, Emily, DIRECTOR OF RETAIL OPERATIONS LDL < 130 Result Component Hyperlipidemia 143( 4 11:54 EDT) No Gibson, Emily, DIRECTOR OF [employer]PER[employer] documented as of this encounter Procedures Procedure Name Priority Date/Time Associated Diagnosis Comments ECG REPORT - SCANNED 04/21/2021 13:19 EDT ECG REPORT - SCANNED 04/21/2021 12:13 EDT ECG REPORT - SCANNED 04/21/2021 11:53 EDT COMPLETE BLOOD COUNT AND DIFFERENTIAL Routine 04/18/2021 5:53 EDT ALT Routine 04/18/2021 5:53 EDT AST Routine 04/18/2021 5:53 EDT PHOSPHORUS Routine 04/18/2021 5:53 EDT ALKALINE PHOSPHATASE Routine 04/18/2021 5:53 EDT MAGNESIUM Routine 04/18/2021 5:53 EDT CREATININE Routine 04/18/2021 5:53 EDT BILIRUBIN, TOTAL Routine 04/18/2021 5:53 EDT ELECTROLYTES Routine 04/18/2021 5:53 EDT ECG REPORT - SCANNED 04/17/2021 14:38 EDT COMPLETE BLOOD COUNT AND DIFFERENTIAL Routine 04/17/2021 5:43 EDT ALT Routine 04/17/2021 5:43 EDT AST Routine 04/17/2021 5:43 EDT PHOSPHORUS Routine 04/17/2021 5:43 EDT ALKALINE PHOSPHATASE Routine 04/17/2021 5:43 EDT MAGNESIUM Routine 04/17/2021 5:43 EDT CREATININE Routine 04/17/2021 5:43 EDT BILIRUBIN, TOTAL Routine 04/17/2021 5:43 EDT ELECTROLYTES Routine 04/17/2021 5:43 EDT ELECTROLYTES Routine 04/17/2021 0:01 EDT ELECTROLYTES Routine 04/16/2021 14:10 EDT ECG REPORT - SCANNED 04/16/2021 12:01 EDT ECG REPORT - SCANNED 04/16/2021 11:58 EDT EKG 12-LEAD STAT 04/16/2021 10:52 EDT FECAL BACTERIAL PATHOGENS BY PCR Routine 04/16/2021 8:17 EDT CALPROTECTIN, F Routine 04/16/2021 8:17 EDT GIARDIA AND CRYPTOSPORIDIUM ANTIGENS Routine 04/16/2021 8:17 EDT UNUSUAL FECAL PATHOGEN CULTURE Routine 04/16/2021 8:16 EDT C. DIFFICILE PCR Routine 04/16/2021 8:16 EDT COMPLETE BLOOD COUNT AND DIFFERENTIAL Routine 04/16/2021 7:32 EDT ALT Routine 04/16/2021 7:32 EDT AST Routine 04/16/2021 7:32 EDT PHOSPHORUS Routine 04/16/2021 7:32 EDT ALKALINE PHOSPHATASE Routine 04/16/2021 7:32 EDT MAGNESIUM Routine 04/16/2021 7:32 EDT CREATININE Routine 04/16/2021 7:32 EDT CALCIUM Routine 04/16/2021 7:32 EDT BILIRUBIN, TOTAL Routine 04/16/2021 7:32 EDT ELECTROLYTES Routine 04/16/2021 7:32 EDT ELECTROLYTES Routine 04/15/2021 23:59 EDT ZZLACTIC ACID STAT 04/15/2021 15:43 EDT PHOSPHORUS STAT 04/15/2021 15:43 EDT MAGNESIUM STAT 04/15/2021 15:43 EDT ELECTROLYTES STAT 04/15/2021 15:43 EDT EXPANDED RESPIRATORY VIRAL PANEL, PCR (DOES NOT INCLUDE INFLUENZA OR RSV) Routine 04/15/2021 14:36 EDT ZZHN INFLUENZA A AND B, RSV PCR Routine 04/15/2021 14:[address] ABDOMEN PELVIS W CONTRAST STAT 04/15/2021 13:54 EDT XR ABDOMEN 1 VIEW STAT 04/15/2021 13: 10 EDT HOLD SST Routine 04/15/2021 11:31 EDT HOLD BLUE TOP Routine 04/15/2021 11:31 EDT HIV 1/2 ANTIGEN AND ANTIBODY, 4TH GENERATION Add-On 04/15/2021 11:31 EDT EKG 12-LEAD 04/15/2021 11:06 EDT LACTIC ACID WITH REFLEX - USE FOR INITIAL SEPSIS EVALUATION STAT 04/15/2021 10:22 EDT COMPLETE BLOOD COUNT STAT 04/15/2021 10:22 EDT BUN STAT 04/15/2021 10:22 EDT MAGNESIUM Routine 04/15/2021 10:22 EDT CREATININE STAT 04/15/2021 10:22 EDT ELECTROLYTES STAT 04/15/2021 10:22 EDT TYPE AND SCREEN Routine 04/15/2021 10:15 EDT POCT GLUCOSE, INTERFACED Routine 021 10:05 EDT DRY POWDERED OR METERED DOSE INHALER Routine 04/15/2021 9:55 EDT NEBULIZER TX INTERMITTENT Routine 04/15/2021 9:54 EDT NEBULIZER TX INTERMITTENT Routine 04/15/2021 9:54 EDT NEBULIZER TX INTERMITTENT Routine 04/15/2021 9:54 EDT TROPONIN I STAT 04/15/2021 9:29 EDT PHOSPHORUS Add-On 04/15/2021 9:29 EDT EKG 12-LEAD STAT 04/15/2021 9:20 EDT POCT GLUCOSE, INTERFACED Routine 021 7:25 EDT IBC Add-On 04/15/2021 5:43 EDT COMPLETE BLOOD COUNT AND DIFFERENTIAL Routine 04/15/2021 5:43 EDT ALT Routine 04/15/2021 5:43 EDT AST Routine 04/15/2021 5:43 EDT ALKALINE PHOSPHATASE Routine 04/15/2021 5:43 EDT MAGNESIUM Routine 04/15/2021 5:43 EDT IRON Add-On 04/15/2021 5:43 EDT FERRITIN Add-On 04/15/2021 5:43 EDT CREATININE Routine 04/15/2021 5:43 EDT BILIRUBIN, TOTAL Routine 04/15/2021 5:43 EDT ELECTROLYTES Routine 04/15/2021 5:43 EDT POCT GLUCOSE, INTERFACED Routine 021 23:43 EDT BACTERIAL CULTURE, BLOOD Routine 021 19:08 EDT BACTERIAL CULTURE, BLOOD Routine 021 19:08 EDT ELECTROLYTES Routine 2021 19:08 EDT POCT GLUCOSE, INTERFACED Routine 021 19:03 EDT ZZCOVID-19 TEST [facility] PCR Today 2021 14:32 EDT COVID-19 TESTING Routine 2021 14:3 2 EDT EXPANDED RESPIRATORY VIRAL PANEL, PCR (DOES NOT INCLUDE INFLUENZA OR RSV) Add-On 2021 14:32 EDT ZZHN INFLUENZA A AND B, RSV PCR Add-On 2021 14:32 EDT TROPONIN I STAT 2021 13:02 EDT C REACTIVE PROTEIN Add-On 2021 13 :02 EDT TSH Add-On 2021 13:02 EDT POCT URINE DIPSTICK, CLINITEK STAT 2021 12:46 EDT POCT CSN BARCODE URINE DIPSTICK STAT 2021 12:41 EDT POCT URINE CLINITEK (DIPSTICK) - DOES NOT REFLEX STAT 2021 12:41 EDT UA SEDIMENT + REFLEX TO CULTURE STAT 2021 12:40 EDT BACTERIAL CULTURE, URINE Today 021 12:40 EDT EKG 12-LEAD STAT 2021 12:35 EDT EKG 12-LEAD STAT 2021 12:[address] ABDOMEN PELVIS W CONTRAST STAT 2021 12:11 EDT HOLD SST Routine 2021 11:18 EDT HOLD BLUE TOP Routine 2021 11:18 EDT TISSUE TRANSGLUTAMINASE ANTIBODY, IGA Add-On 2021 11:08 EDT COMPLETE BLOOD COUNT AND DIFFERENTIAL STAT 2021 11:08 EDT LIPASE STAT 2021 11:08 EDT HEMOGLOBIN A1C Add-On 2021 11:08 EDT COMPREHENSIVE METABOLIC PANEL (CMP) STAT 2021 11:08 EDT POCT GLUCOSE, INTERFACED STAT 021 10:35 EDT documented in this encounter Results * ECG REPORT - SCANNED (04/21/2021 13:19 EDT) 04/21/2021 13:1 9 EDT Scan 2 Switchboard And Control Room Operator PROCEDURE/MINOR BRIANA GICAL ORDERABLES * ECG REPORT - SCANNED (04/21/2021 12:13 EDT) 04/21/2021 12:1 3 EDT Scan 2 Switchboard And Control Room Operator PROCEDURE/MINOR BRIANA GICAL ORDERABLES * ECG REPORT - SCANNED (04/21/2021 11:53 EDT) 04/21/2021 11:5 3 EDT Scan 2 Switchboard And Control Room Operator PROCEDURE/MINOR BRIANA GICAL ORDERABLES * ELECTROLYTES (04/18/2021 5:53 EDT) Sodium 140 136 - 145 mEq/L 04/18/2021 6:30 EDT [facility] Potassium 4.6 3.5 - 5.0 mEq/L 04/18/2021 6:30 EDT [facility] Chloride 106 96 - 110 mEq/L 04/18/2021 6:30 EDT [facility] CO2 Total 26 22 - 32 mEq/L 04/18/2021 6:30 EDT [facility] Blood VENOUS BLOOD / Unknown Venipuncture / Unknown 04/18/2021 5:53 EDT 04/18/2021 6:13 EDT Shirley Birmingham MD CHEMISTRY & BLOOD GA S ORDERABLES [facility] [address] [place] [address] * PHOSPHORUS (04/18/2021 5:53 EDT) Phosphorus 2.7 2.5 - 4.5 mg/dL 04/18/2021 6:30 EDT [facility] Blood VENOUS BLOOD / Unknown Venipuncture / Unknown 04/18/2021 5:53 EDT 04/18/2021 6:13 EDT Jhon Rdz MD CHEMISTRY & BLOOD GAS ORDERABLES Performing Organization Address City/[facility]/ZIP Co de Phone Number [facility] [address] [place] [address] * AST (04/18/2021 5:53 EDT) AST 21 15 - 46 U/L 04/18/2021 6:30 EDT [facility] Blood VENOUS BLOOD / Unknown Venipuncture / Unknown 04/18/2021 5:53 EDT 04/18/2021 6:13 EDT Toi Hewitt MD CHEMISTRY & BLOOD GA S ORDERABLES Performing Organization Address [facility] Co de Phone Number [facility] [address] [place] [address] * ALT (04/18/2021 5:53 EDT) ALT 22 <35 U/L 04/18/2021 6:30 EDT [facility] Blood VENOUS BLOOD / Unknown Venipuncture / Unknown 04/18/2021 5:53 EDT 04/18/2021 6:13 EDT Toi Hewitt MD CHEMISTRY & BLOOD GA S ORDERABLES Performing Organization Address City/[facility] Co de Phone Number [facility] [address] [place] [address] * ALKALINE PHOSPHATASE (04/18/2021 5:53 EDT) Alkaline Phosphatase 65 38 - 126 U/L 04/18/2021 6:30 EDT [facility] Blood VENOUS BLOOD / Unknown Venipuncture / Unknown 04/18/2021 5:53 EDT 04/18/2021 6:13 EDT Toi Hewitt MD CHEMISTRY & BLOOD GA S ORDERABLES [facility] [address] [place] [address] * BILIRUBIN, TOTAL (04/18/2021 5:53 EDT) [facility] Bilirubin, Total 0.6 <1.4 mg/dL 04/18/2021 6:30 EDT [facility] Blood VENOUS BLOOD / Unknown Venipuncture / Unknown 04/18/2021 5:53 EDT 04/18/2021 6:13 EDT Toi Hewitt MD CHEMISTRY & BLOOD GA S ORDERABLES Performing Organization Address City/[facility]/ZIP Co de Phone Number [facility] [address] [place] [address] * MAGNESIUM (04/18/2021 5:53 EDT) [facility] Magnesium 2.1 1.7 - 2.8 mg/dL 04/18/2021 6:30 EDT [facility] Blood VENOUS BLOOD / Unknown Venipuncture / Unknown 04/18/2021 5:53 EDT 04/18/2021 6:13 EDT Toi Hewitt MD CHEMISTRY & BLOOD GA S ORDERABLES Performing Organization Address City/[facility]/ZIP Co de Phone Number [facility] [address] [place] [address] * (ABNORMAL) COMPLETE BLOOD COUNT AND DIFFERENTIAL (04/18/2021 5:53 EDT) [facility] WBC 10.11 4.00 - 12.40 K/cmm 04/18/2021 6:23 EDT [facility] RBC 3.59(L) 3.86 - 5.04 M/cmm 04/18/2021 6:23 EDT [facility] Hemoglobin 10.4(L) 11.6 - 15.2 gm/dL 04/18/2021 6:23 EDT [facility] HCT 32.6(L) 34.9 - 44.4 % 04/18/2021 6:23 EDT [facility] MCV 91 81 - 98 fl 04/18/2021 6:23 [facility] MCH 29.0 26.7 - 33.3 pg 04/18/2021 6:23 [facility] MCHC 31.9(L) 32.1 - 35.9 gm/dL 04/18/2021 6:23 [facility] RDW-CV 15.1(H) <14.7 % 04/18/2021 6:23 [facility] RDW-SD 50.0 <50.4 fl 04/18/2021 6:23 [facility] PLT 355 141 - 377 K/cmm 04/18/2021 6:23 [facility] MPV 9.1(L) 9.5 - 12.7 fl 04/18/2021 6:23 [facility] % Neutrophils 61.0 % 04/18/2021 6:23 [facility] % Lymphocytes 29.7 % 04/18/2021 6:23 [facility] % Monocytes 6.8 % 04/18/2021 6:23 [facility] % Eosinophils 1.4 % 04/18/2021 6:23 [facility] % Basophils 0.6 % 04/18/2021 6:23 [facility] % Immature Grans 0.5 % 04/18/20 6:23 [facility] Absolute Neutrophils 6.17 2.20 - 8.85 K/cmm 04/18/2021 6:23 [facility] Absolute Lymphocytes 3.00 1.09 - 3.30 K/cmm 04/18/2021 6:23 [facility] Absolute Monocytes 0.69 0.10 - 0.80 K/cmm 04/18/2021 6:23 [facility] Absolute Eosinophils 0.14 0.03 - 0.61 K/cmm 04/18/2021 6:23 [facility] ABS Basophils 0.06 0.01 - 0.11 K/cmm 04/18/2021 6:23 EDT [facility] Absolute Immature Grans 0.05 0.00 - 0.06 K/cmm 04/18/2021 6:23 EDT [facility] Type of Differential: Auto 04/18/2021 6:23 EDT [facility] Blood VENOUS BLOOD / Unknown Venipuncture / Unknown 04/18/2021 5:53 EDT 04/18/2021 6:13 EDT Toi Hewitt MD PACKAGES & DNA PROBE ORDERABLES Performing Organization Address [facility] de Phone Number [facility] [address] [place] [address] * CREATININE (04/18/2021 5:53 EDT) Creatinine 0.69 0.52 - 1.04 mg/dL 04/18/2021 6:30 EDT [facility] eGFR 95 >60 mL/min/1.7 3m2 04/18/2021 6:30 EDT [facility] Comment:eGFR calculated en hanna CKD-EPI equation for non- Americans. Multiply eGFR by 1.16 for patients. Blood VENOUS BLOOD / Unknown Venipuncture / Unknown 04/18/2021 5:53 EDT 04/18/2021 6:13 EDT Toi Hewitt MD CHEMISTRY & BLOOD GA S ORDERABLES Performing Organization Address [facility] Co de Phone Number [facility] [address] [place] [address] * ECG REPORT - SCANNED (04/17/2021 14:38 EDT) 04/17/2021 14:3 8 EDT Scan 2 Switchboard And Control Room Operator PROCEDURE/MINOR BRIANA GICAL ORDERABLES * ELECTROLYTES (04/17/2021 5:43 EDT) Sodium 141 136 - 145 mEq/L 04/17/2021 6:13 EDT [facility] Potassium 4.9 3.5 - 5.0 mEq/L 04/17/2021 6:13 EDT [facility] Chloride 107 96 - 110 mEq/L 04/17/2021 6:13 EDT [facility] CO2 Total 27 22 - 32 mEq/L 04/17/2021 6:13 EDT [facility] Blood VENOUS BLOOD / Unknown Venipuncture / Unknown 04/17/2021 5:43 EDT 04/17/2021 5:53 EDT Shirley Birmingham MD CHEMISTRY & BLOOD GA S ORDERABLES Performing Organization Address City/[facility]/ZIP Co de Phone Number [facility] [address] [place] [address] * PHOSPHORUS (04/17/2021 5:43 EDT) Phosphorus 2.6 2.5 - 4.5 mg/dL 04/17/2021 6:13 EDT [facility] Blood VENOUS BLOOD / Unknown Venipuncture / Unknown 04/17/2021 5:43 EDT 04/17/2021 5:53 EDT Jhon Rdz MD CHEMISTRY & BLOOD GAS ORDERABLES Performing Organization Address City/[facility]/ZIP Co de Phone Number [facility] [address] [place] [address] * AST (04/17/2021 5:43 EDT) AST 21 15 - 46 U/L 04/17/2021 6:13 EDT [facility] Blood VENOUS BLOOD / Unknown Venipuncture / Unknown 04/17/2021 5:43 EDT 04/17/2021 5:53 EDT Toi Hewitt MD CHEMISTRY & BLOOD GA S ORDERABLES Performing Organization Address City/[facility]/ZIP Co de Phone Number [facility] [address] [place] [address] * ALT (04/17/2021 5:43 EDT) ALT 23 <35 U/L 04/17/2021 6:13 EDT [facility] Blood VENOUS BLOOD / Unknown Venipuncture / Unknown 04/17/2021 5:43 EDT 04/17/2021 5:53 EDT Toi Hewitt MD CHEMISTRY & BLOOD GA S ORDERABLES Performing Organization Address City/[facility]/ZIP Co de Phone Number [facility] [address] [place] [address] * ALKALINE PHOSPHATASE (04/17/2021 5:43 EDT) Alkaline Phosphatase 58 38 - 126 U/L 04/17/2021 6:13 EDT [facility] Blood VENOUS BLOOD / Unknown Venipuncture / Unknown 04/17/2021 5:43 EDT 04/17/2021 5:53 EDT Toi Hewitt MD CHEMISTRY & BLOOD GA S ORDERABLES Performing Organization Address City/[facility]/ZIP Co de Phone Number [facility] [address] [place] [address] * BILIRUBIN, TOTAL (04/17/2021 5:43 EDT) Bilirubin, Total 0.7 <1.4 mg/dL 04/17/2021 6:13 EDT [facility] Blood VENOUS BLOOD / Unknown Venipuncture / Unknown 04/17/2021 5:43 EDT 04/17/2021 5:53 EDT Toi Hewitt MD CHEMISTRY & BLOOD GA S ORDERABLES Performing Organization Address City/[facility]/ZIP Co de Phone Number [facility] [address] [place] [address] * MAGNESIUM (04/17/2021 5:43 EDT) Magnesium 2.7 1.7 - 2.8 mg/dL 04/17/2021 6:13 EDT [facility] Blood VENOUS BLOOD / Unknown Venipuncture / Unknown 04/17/2021 5:43 EDT 04/17/2021 5:53 EDT Toi Hewitt MD CHEMISTRY & BLOOD GA S ORDERABLES [facility] [address] [place] [address] * (ABNORMAL) COMPLETE BLOOD COUNT AND DIFFERENTIAL (04/17/2021 5:43 EDT) WBC 9.96 4.00 - 12.40 K/cmm 04/17/2021 5:59 EDT [facility] RBC 3.49(L) 3.86 - 5.04 M/cmm 04/17/2021 5:59 [facility] Hemoglobin 10.2(L) 11.6 - 15.2 gm/dL 04/17/2021 5:59 [facility] HCT 30.0(L) 34.9 - 44.4 % 04/17/2021 5:59 [facility] MCV 86 81 - 98 fl 04/17/2021 5:59 [facility] MCH 29.2 26.7 - 33.3 pg 04/17/2021 5:59 [facility] MCHC 34.0 32.1 - 35.9 gm/dL 04/17/2021 5:59 [facility] RDW-CV 14.8(H) <14.7 % 04/17/2021 5:59 [facility] RDW-SD 45.9 <50.4 fl 04/17/2021 5:59 [facility] PLT 318 141 - 377 K/cmm 04/17/2021 5:59 [facility] MPV 9.1(L) 9.5 - 12.7 fl 04/17/2021 5:59 [facility] % Neutrophils 78.0 % 04/17/2021 5:59 [facility] % Lymphocytes 15.0 % 04/17/2021 5:59 EDT [facility] % Monocytes 5.4 % 04/17/2021 5:59 EDT [facility] % Eosinophils 0.4 % 04/17/2021 5:59 EDT [facility] % Basophils 0.4 % 04/17/2021 5:59 EDT [facility] % Immature Grans 0.8 % 04/17/20 5:59 EDT [facility] Absolute Neutrophils 7.77 2.20 - 8.85 K/cmm 04/17/2021 5:59 EDT [facility] Absolute Lymphocytes 1.49 1.09 - 3.30 K/cmm 04/17/2021 5:59 EDT [facility] Absolute Monocytes 0.54 0.10 - 0.80 K/cmm 04/17/2021 5:59 EDT [facility] Absolute Eosinophils 0.04 0.03 - 0.61 K/cmm 04/17/2021 5:59 EDT [facility] ABS Basophils 0.04 0.01 - 0.11 K/cmm 04/17/2021 5:59 EDT [facility] Absolute Immature Grans 0.08(H) 0.00 - 0.06 K/cmm 04/17/2021 5:59 EDT [facility] Type of Differential: Auto 04/17/2021 5:59 EDT [facility] Blood VENOUS BLOOD / Unknown Venipuncture / Unknown 04/17/2021 5:43 EDT 04/17/2021 5:53 EDT Toi Hewitt MD PACKAGES & DNA PROBE ORDERABLES [facility] [address] [place] [address] * CREATININE (04/17/2021 5:43 EDT) Creatinine 0.68 0.52 - 1.04 mg/dL 04/17/2021 6:13 EDT [facility] eGFR 95 >60 mL/min/1.7 3m2 04/17/2021 6:13 EDT [facility] Comment:eGFR calculated en hanna CKD-EPI equation for non- Americans. Multiply eGFR by 1.16 for patients. Blood VENOUS BLOOD / Unknown Venipuncture / Unknown 04/17/2021 5:43 EDT 04/17/2021 5:53 EDT Toi Hewitt MD CHEMISTRY & BLOOD GA S ORDERABLES Performing Organization Address [facility] de Phone Number [facility] [address] [place] [address] * ELECTROLYTES (04/17/2021 0:01 EDT) Sodium 140 136 - 145 mEq/L 04/17/2021 0:32 EDT [facility] Potassium 4.1 3.5 - 5.0 mEq/L 04/17/2021 0:32 EDT [facility] Chloride 104 96 - 110 mEq/L 04/17/2021 0:32 EDT [facility] CO2 Total 29 22 - 32 mEq/L 04/17/2021 0:32 EDT [facility] Blood VENOUS BLOOD / Unknown Venipuncture / Unknown 04/17/2021 0:01 EDT 04/17/2021 0:04 EDT Shirley Birmingham MD CHEMISTRY & BLOOD GA S ORDERABLES Performing Organization Address [facility] de Phone Number [facility] [address] [place] [address] * ELECTROLYTES (04/16/2021 14:10 EDT) Sodium 141 136 - 145 mEq/L 04/16/2021 15:27 EDT [facility] Potassium 3.9 3.5 - 5.0 mEq/L 04/16/2021 15:27 EDT [facility] Chloride 102 96 - 110 mEq/L 04/16/2021 15:27 EDT [facility] CO2 Total 30 22 - 32 mEq/L 04/16/2021 15:27 EDT [facility] Blood VENOUS BLOOD / Unknown Venipuncture / Unknown 04/16/2021 14:10 EDT 04/16/2021 14:59 EDT Shirley Birmingham MD CHEMISTRY & BLOOD GA S ORDERABLES [facility] [address] [place] [address] * ECG REPORT - SCANNED (04/16/2021 12:01 EDT) 04/16/2021 12:0 1 EDT Scan 2 Switchboard And Control Room Operator PROCEDURE/MINOR BRIANA GICAL ORDERABLES * ECG REPORT - SCANNED (04/16/2021 11:58 EDT) 04/16/2021 11:5 8 EDT Scan 2 Switchboard And Control Room Operator PROCEDURE/MINOR BRIANA GICAL ORDERABLES * EKG 12-LEAD (04/16/2021 10:52 EDT) 04/16/2021 10:5 2 EDT Narrative [facility] - 04/21/2021 12:07 EDT ? [facility] ? Test Date: ?2021-04-16 Pat Name: ? ERIKA HUSAIN ? Department: ?? [facility] ? Room: ? BS322 Gender: ? Female ? 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 [id number] : ?1960 ? Requested By: JUMANA PEREZ Order Number: [id number] ? Reading : ?? SAMIA CHIANG MD ? Measurements Intervals ?[place] ? Rate: ? 96 ? P: ?46 CT: ? 148 ?QRS: ?40 QRSD: ? 102 ?T: ?10 QT: ? 370 ? QTc: ?469 ? Interpretive Statements SINUS RHYTHM NONSPECIFIC T-WAVE ABNORMALITY I reviewed the tracing and have either agreed or edited the findings in this report. Electronically Signed On 04-21-2021 12:07:09 EDT by SAMIA CHIANG MD. 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 Electronically Signed On 04-21-2021 12:07:09 EDT by SAMIA LEMUS. Toi Hewitt MD CARDIAC ECG ORDERABL ES Performing Organization Address City/[facility]/ZIP Co de Phone Number [facility] EKG * CALPROTECTIN, F (04/16/2021 8:17 EDT) Calprotectin,F 27.0 <=50.0 (Normal) mcg/g 04/19/2021 11:05 EDT [facility] Comment: Test Performed by: [facility] [address] [place] [id number] [employer] [facility] Physicist: Hermann Parrish M.D. Ph.D.; CLIA# [id number] Feces SPECIMEN FROM RECTUM / Unknown Stool Collect / Unknown 04/16/2021 8:17 EDT 04/16/2021 8:47 EDT Toi Hewitt MD GEN LAB UNIT COLLECT ORDERABLES Performing Organization Address City/[facility]/ZIP Co de Phone Number [facility] [employer] [address] [place] [id number] * GIARDIA AND CRYPTOSPORIDIUM ANTIGENS (04/16/2021 8:17 EDT) Giardia and Cryptosporidium Cryptosporidium Antigen Neg and Giardia Antigen Neg Cryptosporidium Antigen Neg and Giardia Antigen Neg 8:53 EDT [facility] Feces SPECIMEN FROM RECTUM / Unknown Stool Collect / Unknown 04/16/2021 8:17 EDT 04/16/2021 8:47 EDT Nel Borges MD MPH MICROBIOLOGY - GENERAL ORDERABLES Performing Organization Address City/[facility]/ZIP Co de Phone Number [facility] [address] [place] [address] * FECAL BACTERIAL PATHOGENS BY PCR (04/16/2021 8:17 EDT) Salmonella PCR Negative Negative 04/16/2021 13:40 EDT [facility] Shigella/Enteroin vasive E. coli Negative Negative 04/16/2021 13:40 EDT [facility] HN LAB CAMPYLOBACTER PCR Negative Negative 04/16/2021 13:40 EDT [facility] Shiga Toxin PCR Negative Negative 13:40 EDT [facility] Feces SPECIMEN FROM RECTUM / Unknown Stool Collect / Unknown 04/16/2021 8:17 EDT 04/16/2021 8:47 EDT Nel Borges MD MPH MICROBIOLOGY - GENERAL ORDERABLES Performing Organization Address [facility] de Phone Number [facility] [address] [place] [address] * UNUSUAL FECAL PATHOGEN CULTURE (04/16/2021 8:16 EDT) Organism ID No Aeromonas species, Plesiomonas shigelloides, Yersinia enterocolitica, or Vibrio specis isolated 04/18/2021 14:30 EDT [facility] Feces SPECIMEN FROM RECTUM / Unknown Stool Collect / Unknown 04/16/2021 8:16 EDT 04/16/2021 8:47 EDT Jhon Rdz MD MICROBIOLOGY - GEN ERAL ORDERABLES Performing Organization Address [facility] Co de Phone Number [facility] [address] [place] [address] * (ABNORMAL) C. DIFFICILE PCR (04/16/2021 8:16 EDT) C. difficile PCR Positive(A ) Negative 04/16/2021 13:40 EDT [facility] Feces SPECIMEN FROM RECTUM / Unknown Stool Collect / Unknown 04/16/2021 8:16 EDT 04/16/2021 8:47 EDT Nel Borges MD MPH MICROBIOLOGY - GENERAL ORDERABLES Performing Organization Address [facility] de Phone Number [facility] [address] [place] [address] * (ABNORMAL) CALCIUM (04/16/2021 7:32 EDT) Pathologist [facility] Calcium 8.1(L) 8.5 - 10.5 mg/dL 04/16/2021 8:07 EDT [facility] Calculated Calcium 8.9 8.5 - 10.5 mg/dL 04/16/2021 8:07 EDT [facility] Comment:Slight hemolysis tarun ntified, interpret with caution as results may be affected due to hemolysis. Blood VENOUS BLOOD / Unknown Finger/Heel Stick / Unknown 04/16/2021 7:32 EDT 04/16/2021 7:38 EDT Jhon Rdz MD CHEMISTRY & BLOOD GAS ORDERABLES Performing Organization Address [facility] de Phone Number [facility] [address] [place] [address] * PHOSPHORUS (04/16/2021 7:32 EDT) Pathologist [facility] Phosphorus 3.5 2.5 - 4.5 mg/dL 04/16/2021 8:07 EDT [facility] Comment:Slight hemolysis tarun ntified, interpret with caution as results may be affected due to hemolysis. Blood VENOUS BLOOD / Unknown Finger/Heel Stick / Unknown 04/16/2021 7:32 EDT 04/16/2021 7:38 EDT Jhon Rdz MD CHEMISTRY & BLOOD GAS ORDERABLES [facility] [address] [place] [address] * ELECTROLYTES (04/16/2021 7:32 EDT) Sodium 143 136 - 145 mEq/L 04/16/2021 8:07 EDT [facility] Potassium 5.0 3.5 - 5.0 mEq/L 04/16/2021 8:07 EDT [facility] Comment:Slight hemolysis tarun ntified, interpret with caution as hemolysis will elevate potassium result. Chloride 108 96 - 110 mEq/L 04/16/2021 8:07 EDT [facility] CO2 Total 26 22 - 32 mEq/L 04/16/2021 8:07 EDT [facility] Blood VENOUS BLOOD / Unknown Finger/Heel Stick / Unknown 04/16/2021 7:32 EDT 04/16/2021 7:38 EDT Shirley Birmingham MD CHEMISTRY & BLOOD GA S ORDERABLES Performing Organization Address [facility]/ZIP Co de Phone Number [facility] [address] [place] [address] * AST (04/16/2021 7:32 EDT) AST 33 15 - 46 U/L 04/16/2021 8:07 EDT [facility] Comment:Slight hemolysis tarun ntified, interpret with caution as results may be affected due to hemolysis. Blood VENOUS BLOOD / Unknown Finger/Heel Stick / Unknown 04/16/2021 7:32 EDT 04/16/2021 7:38 EDT Toi Hewitt MD CHEMISTRY & BLOOD GA S ORDERABLES Performing Organization Address City/[facility]/ZIP Co de Phone Number [facility] [address] [place] [address] * ALT (04/16/2021 7:32 EDT) ALT 26 <35 U/L 04/16/2021 8:07 EDT [facility] Blood VENOUS BLOOD / Unknown Finger/Heel Stick / Unknown 04/16/2021 7:32 EDT 04/16/2021 7:38 EDT Toi Hewitt MD CHEMISTRY & BLOOD GA S ORDERABLES Performing Organization Address [facility] Co de Phone Number [facility] [address] [place] [address] * ALKALINE PHOSPHATASE (04/16/2021 7:32 EDT) Alkaline Phosphatase 50 38 - 126 U/L 04/16/2021 8:08 EDT [facility] Comment:Slight hemolysis tarun ntified, hemolysis will decrease ALKP result. Interpret with caution as results may be affected due to hemolysis. Blood VENOUS BLOOD / Unknown Finger/Heel Stick / Unknown 04/16/2021 7:32 EDT 04/16/2021 7:38 EDT Toi Hewitt MD CHEMISTRY & BLOOD GA S ORDERABLES Performing Organization Address [facility] Co de Phone Number [facility] [address] [place] [address] * BILIRUBIN, TOTAL (04/16/2021 7:32 EDT) Bilirubin, Total 1.3 <1.4 mg/dL 04/16/2021 8:01 EDT [facility] Blood VENOUS BLOOD / Unknown Finger/Heel Stick / Unknown 04/16/2021 7:32 EDT 04/16/2021 7:38 EDT Toi Hewitt MD CHEMISTRY & BLOOD GA S ORDERABLES Performing Organization Address City/[facility] Co de Phone Number [facility] [address] [place] [address] * MAGNESIUM (04/16/2021 7:32 EDT) Magnesium 2.1 1.7 - 2.8 mg/dL 04/16/2021 8:07 EDT [facility] Comment:Slight hemolysis tarun ntified, interpret with caution as results may be affected due to hemolysis. Blood VENOUS BLOOD / Unknown Finger/Heel Stick / Unknown 04/16/2021 7:32 EDT 04/16/2021 7:38 EDT Toi Hewitt MD CHEMISTRY & BLOOD GA S ORDERABLES [facility] [address] [place] [address] * (ABNORMAL) COMPLETE BLOOD COUNT AND DIFFERENTIAL (04/16/2021 7:32 EDT) WBC 7.02 4.00 - 12.40 K/cmm 04/16[facility]21 [facility] RBC 3.32(L) 3.86 - 5.04 M/cmm 04/16/2021 7:52 [facility] Hemoglobin 9.8(L) 11.6 - 15.2 gm/dL 04/16/2021 7:52 [facility] HCT 28.8(L) 34.9 - 44.4 % 04/16/2021 7:52 [facility] MCV 87 81 - 98 fl 04/16/2021 7:52 [facility] MCH 29.5 26.7 - 33.3 pg 04/16/2021 7:52 [facility] MCHC 34.0 32.1 - 35.9 gm/dL 04/16/2021 7:52 [facility] RDW-CV 15.1(H) <14.7 % 04/16/2021 7:52 [facility] RDW-SD 47.6 <50.4 fl 04/16/2021 7:52 [facility] PLT 306 141 - 377 K/cmm 04/16/2021 7:52 [facility] MPV 9.2(L) 9.5 - 12.7 fl 04/16/2021 7:52 [facility] % Neutrophils 66.3 % 04/16/2021 7:52 [facility] % Lymphocytes 18.2 % 04/16/2021 7:52 [facility] % Monocytes 7.7 % 04/16/2021 7:52 [facility] % Eosinophils 6.0 % 04/16/2021 7:52 [facility] % Basophils 0.7 % 04/16/2021 7:52 [facility] % Immature Grans 1.1 % 04/16/20 7:52 [facility] Absolute Neutrophils 4.65 2.20 - 8.85 K/cmm 04/16/2021 7:52 [facility] Absolute Lymphocytes 1.28 1.09 - 3.30 K/cmm 04/16/2021 7:52 [facility] Absolute Monocytes 0.54 0.10 - 0.80 K/cmm 04/16/2021 7:52 [facility] Absolute Eosinophils 0.42 0.03 - 0.61 K/cmm 04/16/2021 7:52 [facility] ABS Basophils 0.05 0.01 - 0.11 K/cmm 04/16/2021 7:52 [facility] Absolute Immature Grans 0.08(H) 0.00 - 0.06 K/cmm 04/16/2021 7:52 [facility] Type of Differential: Auto 04/16/2021 7:52 [facility] Blood VENOUS BLOOD / Unknown Finger/Heel Stick / Unknown 04/16/2021 7:32 EDT 04/16/2021 7:38 EDT Toi Hewitt MD PACKAGES & DNA PROBE ORDERABLES [facility] [address] [place] [address] * CREATININE (04/16/2021 7:32 EDT) Creatinine 0.70 0.52 - 1.04 mg/dL 04/16/2021 8:01 [facility] eGFR 94 >60 mL/min/1.7 3m2 04/16/2021 8:01 EDT [facility] Comment:eGFR calculated en hanna CKD-EPI equation for non- Americans. Multiply eGFR by 1.16 for patients. Blood VENOUS BLOOD / Unknown Finger/Heel Stick / Unknown 04/16/2021 7:32 EDT 04/16/2021 7:38 EDT Toi Hewitt MD CHEMISTRY & BLOOD GA S ORDERABLES Performing Organization Address [facility] Co de Phone Number [facility] [address] [place] [address] * (ABNORMAL) ELECTROLYTES (04/15/2021 23:59 EDT) Sodium 144 136 - 145 mEq/L 04/16/2021 1:02 EDT [facility] Potassium 5.3(H) 3.5 - 5.0 mEq/L 04/16/2021 1:02 EDT [facility] Comment:Slight hemolysis tarun ntified, interpret with caution as hemolysis will elevate potassium result. Chloride 110 96 - 110 mEq/L 04/16/2021 1:02 EDT [facility] CO2 Total 21(L) 22 - 32 mEq/L 04/16/2021 1:02 EDT [facility] Blood VENOUS BLOOD / Unknown Venipuncture / Unknown 04/15/2021 23:59 EDT 04/16/2021 0:02 EDT Shirley Birmingham MD CHEMISTRY & BLOOD GA S ORDERABLES Performing Organization Address [facility] Co de Phone Number [facility] [address] [place] [address] * PHOSPHORUS (04/15/2021 15:43 EDT) Phosphorus 3.0 2.5 - 4.5 mg/dL 04/15/2021 16:02 EDT [facility] Blood VENOUS BLOOD / Unknown Venipuncture / Unknown 04/15/2021 15:43 EDT 04/15/2021 15:46 EDT Jhon Rdz MD CHEMISTRY & BLOOD GAS ORDERABLES Performing Organization Address City/[facility]/ZIP Co de Phone Number [facility] [address] [place] [address] * MAGNESIUM (04/15/2021 15:43 EDT) Magnesium 2.4 1.7 - 2.8 mg/dL 04/15/2021 16:01 EDT [facility] Blood VENOUS BLOOD / Unknown Venipuncture / Unknown 04/15/2021 15:43 EDT 04/15/2021 15:46 EDT Jhon Rdz MD CHEMISTRY & BLOOD GAS ORDERABLES Performing Organization Address [facility] Co de Phone Number [facility] [address] [place] [address] * ELECTROLYTES (04/15/2021 15:43 EDT) Pathologist [facility] Sodium 141 136 - 145 mEq/L 04/15/2021 16:01 EDT [facility] Potassium 3.9 3.5 - 5.0 mEq/L 04/15/2021 16:01 EDT [facility] Chloride 101 96 - 110 mEq/L 04/15/2021 16:01 EDT [facility] CO2 Total 28 22 - 32 mEq/L 04/15/2021 16:01 EDT [facility] Blood VENOUS BLOOD / Unknown Venipuncture / Unknown 04/15/2021 15:43 EDT 04/15/2021 15:46 EDT Jhon Rdz MD CHEMISTRY & BLOOD GAS ORDERABLES Performing Organization Address City/[facility] Co de Phone Number [facility] [address] [place] [address] * (ABNORMAL) LACTIC ACID (04/15/2021 15:43 EDT) Lactic Acid 2.5(HH) <=2.0 mmol/L 04/15/2021 16:19 EDT [facility] Blood VENOUS BLOOD / Unknown Venipuncture / Unknown 04/15/2021 15:43 EDT 04/15/2021 15:46 EDT Dg Collins MD CHEMISTRY & BLOOD GA S ORDERABLES Performing Organization Address City/[facility]/ZIP Co de Phone Number [facility] [address] [place] [address] * EXPANDED RESPIRATORY VIRAL PANEL, PCR (DOES NOT INCLUDE INFLUENZA OR RSV) (04/15/2021 14:36 EDT) Paraflu Type 1 Rslt (PF1RES) Negative Negative 04/15/2021 20:52 EDT [facility] Paraflu Type 2 Rslt (PF2RES) Negative Negative 04/15/2021 20:52 EDT [facility] Paraflu Type 3 Rslt (PF3RES) Negative Negative 04/15/2021 20:52 EDT [facility] Paraflu Type 4 Rslt Negative Negative 04/15 20:52 EDT [facility] Rhinovirus RNA Rslt (RVRES) Negative Negative 04/15/2021 20:52 EDT [facility] Metapneumovirus RNA Rslt (HMVRES) Negative Negative 04/15/2021 20:52 EDT [facility] Adenovirus DNA Rslt (ADVRES) Negative Negative 04/15/2021 20:52 EDT [facility] Swab ENTIRE NASOPHARYNX / Unknown Swab / Unknown 04/15/2021 14:36 EDT 04/15/2021 15:15 EDT Shirley Birmingham MD MICROBIOLOGY - GENER AL ORDERABLES Performing Organization Address City/[facility]/ZIP Co de Phone Number [facility] [address] [place] [address] * INFLUENZA A AND B,RSV PCR (04/15/2021 14:36 EDT) FLU A RNA Result (FLARES) Negative Negative 04/15/2021 20:52 EDT [facility] FLU B RNA Result (FLBRES) Negative Negative 04/15/2021 20:52 EDT [facility] RSV RNA Result (RSVRES) Negative Negative 04/15/2021 20:52 EDT [facility] Performing Lab [facility] Lab 04/15/2021 20:52 EDT [facility] Swab ENTIRE NASOPHARYNX / Unknown Swab / Unknown 04/15/2021 14:36 EDT 04/15/2021 15:15 EDT Shirley Birmingham MD MICROBIOLOGY - GENER AL ORDERABLES [facility] [address] [place] [address] * CT ABDOMEN PELVIS W CONTRAST (04/15/2021 13:54 EDT) Anatomical Region Laterality Modality Body, Abdomen, Pelvis, Abdomen and Pelvis Computed Tomography 04/15/2021 15:1 8 EDT Impressions 04/15/2021 15:18 EDT 1. ??No bowel obstruction. 2. ??Fluid-filled colon with mild wall thickening and mucosal enhancement involving the ascending colon, without adjacent fat stranding. Correlate for symptoms of diarrhea/mild colitis 3. ??Status post partial right colectomy with unremarkable ileocolic anastomosis. 4. ??Normal caliber biliary tree, status post cholecystectomy. 5. ??Prior hysterectomy. I have personally reviewed the images and the above interpretation and agree with the findings. Narrative 04/15/2021 15:[address] ABDOMEN PELVIS W CONTRAST ??04/15/2021 1:25 PM Signs and Symptoms/Comments: ?? Surgical abdomen, worsening abdominal tenderness LUQ and LLQ; Abdominal pain, acute, nonlocalized Technique: CT of the abdomen and pelvis was performed following the administration intravenous contrast; coronal and sagittal multiplanar reconstructions generated. Comparison: CT abdomen pelvis one day prior, 09/24/2018. Findings: Lower chest: Focal atelectasis or scar in the anterior middle lobe and inferior lingula. Mild dependent atelectasis. Hepatobiliary: Left hepatic cyst, axial 55, unchanged. Stable caliber biliary tree, status post cholecystectomy. Spleen, pancreas, adrenal glands: Spleen, pancreas, and adrenal glands are without significant finding. Kidneys, ureters, bladder: Kidneys enhance normally and symmetrically. No hydroureteronephrosis or urinary tract calculi. Bladder is nondistended. Uterus, ovaries: Prior hysterectomy. No adnexal mass. Bowel: No obstruction. Prior partial right colectomy with unremarkable ileocolic anastomosis. Fluid filled colon with mild wall thickening and mucosal enhancement of ascending colon, without significant adjacent fat stranding. More dense luminal content is present in the and descending/sigmoid colon. Previously noted mucosal enhancement and wall thickening in the sigmoid colon and rectum has normalized allowing for nondistended state, previously fluid-filled. Peritoneal cavity / Subperitoneal space: No free fluid or free air. Surgical clips in the pelvis. Lymphovascular: Scattered calcified plaque of nonaneurysmal abdominal aorta. No lymphadenopathy. Abdominal wall: Postsurgical changes in the ventral abdominal wall. No fluid collection or soft tissue gas. Musculoskeletal: No significant abnormalities. Expressive Art Therapist: No additional findings Procedure Note Yonathan Obregon MD - 04/15/2021 CT ABDOMEN PELVIS W CONTRAST 04/15/2021 1:25 PM Signs and Symptoms/Comments: Surgical abdomen, worsening abdominal tenderness LUQ and LLQ; Abdominalpain, acute, nonlocalized Technique: CT of the abdomen and pelvis was performed following the administrationintravenous contrast; coronal and sagittal multiplanar reconstructionsgenerated. Comparison: CT abdomen pelvis one day prior, 09/24/2018. Findings: Lower chest: Focal atelectasis or scar in the anterior middle lobe andinferior lingula. Mild dependent atelectasis. Hepatobiliary: Left hepatic cyst, axial 55, unchanged. Stable caliberbiliary tree, status post cholecystectomy. Spleen, pancreas, adrenal glands: Spleen, pancreas, and adrenal glands arewithout significant finding. Kidneys, ureters, bladder: Kidneys enhance normally and symmetrically. Nohydroureteronephrosis or urinary tract calculi. Bladder is nondistended. Uterus, ovaries: Prior hysterectomy. No adnexal mass. Bowel: No obstruction. Prior partial right colectomy with unremarkableileocolic anastomosis. Fluid filled colon with mild wall thickening andmucosal enhancement of ascending colon, without significant adjacent fatstranding. More dense luminal content is present in the anddescending/sigmoid colon. Previously noted mucosal enhancement and wallthickening in the sigmoid colon and rectum has normalized allowing fornondistended state, previously fluid-filled. Peritoneal cavity / Subperitoneal space: No free fluid or free air.Surgical clips in the pelvis. Lymphovascular: Scattered calcified plaque of nonaneurysmal abdominalaorta. No lymphadenopathy. Abdominal wall: Postsurgical changes in the ventral abdominal wall. Nofluid collection or soft tissue gas. Musculoskeletal: No significant abnormalities. Expressive Art Therapist: No additional findings IMPRESSION 1. No bowel obstruction. 2. Fluid-filled colon with mild wall thickening and mucosal enhancementinvolving the ascending colon, without adjacent fat stranding. Correlatefor symptoms of diarrhea/mild colitis 3. Status post partial right colectomy with unremarkable ileocolicanastomosis. 4. Normal caliber biliary tree, status post cholecystectomy. 5. Prior hysterectomy. I have personally reviewed the images and the above interpretation andagree with the findings. Shirley Birmingham MD IMG CT ORDERABLES * XR ABDOMEN 1 VIEW (04/15/2021 13:10 EDT) Anatomical Region Laterality Modality Body Computed Radiogr aphy 04/15/2021 13:3 7 EDT Narrative 04/15/2021 13:37 EDT XR ABDOMEN 1 VIEW ??04/15/2021 12:40 PM CLINICAL HISTORY/COMMENTS: Worsening abdominal pain TECHNIQUE: AP view of the abdomen COMPARISON: CT abdomen and pelvis 04/13/2021 FINDINGS: The bowel gas pattern is unremarkable. Air-filled colon is noted. No free air identified. Surgical sutures are seen in the right abdomen in this patient with ileocolic anastomosis. Prior cholecystectomy. Surgical clips project over the pelvis. Contrast is present within the bladder in this patient with recent contrast-enhanced CT. I have personally reviewed the images and the above interpretation and agree with the findings. Procedure Note Barney Salamanca MD - 04/15/2021 XR ABDOMEN 1 VIEW 04/15/2021 12:40 PM CLINICAL HISTORY/COMMENTS: Worsening abdominal pain TECHNIQUE: AP view of the abdomen COMPARISON: CT abdomen and pelvis 04/13/2021 FINDINGS: The bowel gas pattern is unremarkable. Air-filled colon is noted. No freeair identified. Surgical sutures are seen in the right abdomen in thispatient with ileocolic anastomosis. Prior cholecystectomy. Surgical clips project over the pelvis. Contrast ispresent within the bladder in this patient with recent contrast-enhancedCT. I have personally reviewed the images and the above interpretation andagree with the findings. Shirley Birmingham MD IMG DIAGNOSTIC IMAGI NG ORDERABLES * HOLD SST (04/15/2021 11:31 EDT) Hold Hold 04/15/2021 12:46 EDT [facility] Blood VENOUS BLOOD / Unknown 04/15/2021 11:31 EDT 04/15/2021 11:31 EDT Jhon Rdz MD LAB INFO SERVICE A ND SUPPORT & PHONE RESULT Performing Organization Address [facility] Co de Phone Number [facility] [address] [place] [address] * HOLD BLUE TOP (04/15/2021 11:31 EDT) Hold Hold 04/15/2021 12:46 EDT [facility] Blood VENOUS BLOOD / Unknown 04/15/2021 11:31 EDT 04/15/2021 11:31 EDT Jhon Rdz MD LAB INFO SERVICE A ND SUPPORT & PHONE RESULT Performing Organization Address City/[facility]/ZIP Co de Phone Number [facility] [address] [place] [address] * HIV 1/2 ANTIGEN AND ANTIBODY, 4TH GENERATION (04/15/2021 11:31 EDT) HIV 1 and 2 Antibody/p24 Antigen, 4th Generation Negative Negative 04/15/2021 13:52 EDT [facility] Comment: If acute HIV-1 infection is suspected in a high risk ??patient, submit plasma specimen for HIV-1 RNA quantitation test. Fourth Generation assay performed on the Siemens Xoopitaur. Blood VENOUS BLOOD / Unknown 04/15/2021 11:31 EDT 04/15/2021 11:31 EDT Shirley Birmingham MD IMMUNOLOGY AND TIAN HOGANABLES [facility] [address] [place] [address] * EKG 12-LEAD (04/15/2021 11:06 EDT) 04/15/2021 11:0 6 EDT Narrative [facility] - 04/21/2021 11:48 EDT ? [facility] ? Test Date: ?2021-04-15 Pat Name: ? ERIKA PISANOFRANCEGROVER ? Department: ?? [facility] 3S ? Room: ? Gender: ? Female ? 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 [id number] : ?[id number] ? Requested By: SHIRLEY BIRMINGHAM MD Order Number: ?Kasi JARVIS: ?? SAMIA CHIANG MD ? Measurements Intervals ?[place] ? Rate: ? 94 ? P: ?49 CT: ? 149 ?QRS: ?12 QRSD: ? 114 ?T: ?36 QT: ? 381 ? QTc: ?479 ? Interpretive Statements SINUS RHYTHM MODERATE INTRAVENTRICULAR CONDUCTION DELAY NONSPECIFIC ST & T-WAVE ABNORMALITY I reviewed the tracing and have either agreed or edited the findings in this report. Electronically Signed On 04-21-2021 11:48:34 EDT by SAMIA CHIANG MD. Procedure Note Samia Chiang MD - 04/21/2021 [facility] Test Date: 2021-04-15 Pat Name: ERIKA HUSAIN Department: [address] Room: Gender: Female Arch Pad Cementer: [id number] : 1960 Requested By: SHIRLEY BIRMINGHAM MD Order Number: Reading MD: SAMIA CHIANG MD Measurements Intervals [place] Rate: 94 P: 49 CT: 149 QRS: 12 QRSD: 114 T: 36 QT: 381 QTc: 479 Interpretive Statements SINUS RHYTHM MODERATE INTRAVENTRICULAR CONDUCTION DELAY NONSPECIFIC ST & T-WAVE ABNORMALITY I reviewed the tracing and have either agreed or edited the findings inthis report. Electronically Signed On 04-21-2021 11:48:34 EDT by SAMIA LEMUS. Shirley Birmingham MD CARDIAC ECG ORDERABL ES [facility] EKG * (ABNORMAL) LACTIC ACID WITH REFLEX - USE FOR INITIAL SEPSIS EVALUATION (04/15/2021 10:22 EDT) Lactic Acid 5.8(HH) <=2.0 mmol/L 04/15/2021 11:32 EDT [facility] Blood VENOUS BLOOD / Unknown Venipuncture / Unknown 04/15/2021 10:22 EDT 04/15/2021 11:18 EDT Dg Collins MD CHEMISTRY & BLOOD GA S ORDERABLES Performing Organization Address [facility] Co de Phone Number [facility] [address] [place] [address] * CREATININE (04/15/2021 10:22 EDT) Creatinine 0.92 0.52 - 1.04 mg/dL 04/15/2021 11:26 EDT [facility] eGFR 68 >60 mL/min/1.7 3m2 04/15/2021 11:26 EDT [facility] Comment:eGFR calculated en hanna CKD-EPI equation for non- Americans. Multiply eGFR by 1.16 for patients. Blood VENOUS BLOOD / Unknown Venipuncture / Unknown 04/15/2021 10:22 EDT 04/15/2021 11:18 EDT Dg Collins MD CHEMISTRY & BLOOD GA S ORDERABLES Performing Organization Address City/[facility]/ZIP Co de Phone Number [facility] [address] [place] [address] * BUN (04/15/2021 10:22 EDT) BUN 13 10 - 26 mg/dL 04/15/2021 11:26 EDT [facility] Blood VENOUS BLOOD / Unknown Venipuncture / Unknown 04/15/2021 10:22 EDT 04/15/2021 11:18 EDT Dg Collins MD CHEMISTRY & BLOOD GA S ORDERABLES Performing Organization Address [facility] de Phone Number [facility] [address] [place] [address] * ELECTROLYTES (04/15/2021 10:22 EDT) Sodium 142 136 - 145 mEq/L 04/15/2021 11:26 EDT [facility] Potassium 3.8 3.5 - 5.0 mEq/L 04/15/2021 11:26 EDT [facility] Chloride 103 96 - 110 mEq/L 04/15/2021 11:26 EDT [facility] CO2 Total 23 22 - 32 mEq/L 04/15/2021 11:26 EDT [facility] Blood VENOUS BLOOD / Unknown Venipuncture / Unknown 04/15/2021 10:22 EDT 04/15/2021 11:18 EDT Dg Collins MD CHEMISTRY & BLOOD GA S ORDERABLES Performing Organization Address [facility] Co de Phone Number [facility] [address] [place] [address] * (ABNORMAL) COMPLETE BLOOD COUNT (04/15/2021 10:22 EDT) WBC 9.66 4.00 - 12.40 K/cmm 04/15/2021 11:16 EDT [facility] RBC 3.94 3.86 - 5.04 M/cmm 04/15/2021 11:16 EDT [facility] Hemoglobin 11.4(L) 11.6 - 15.2 gm/dL 04/15/2021 11:16 EDT [facility] HCT 32.9(L) 34.9 - 44.4 % 04/15/2021 11:16 EDT [facility] MCV 84 81 - 98 fl 04/15/2021 11:16 EDT [facility] MCH 28.9 26.7 - 33.3 pg 04/15/2021 11:16 EDT [facility] MCHC 34.7 32.1 - 35.9 gm/dL 04/15/2021 11:16 EDT [facility] RDW-CV 14.6 <14.7 % 04/15/2021 11:16 EDT [facility] RDW-SD 44.1 <50.4 fl 04/15/2021 11:16 EDT [facility] PLT 437(H) 141 - 377 K/cmm 04/15/2021 11:16 EDT [facility] MPV 9.3(L) 9.5 - 12.7 fl 04/15/2021 11:16 EDT [facility] Blood VENOUS BLOOD / Unknown Venipuncture / Unknown 04/15/2021 10:22 EDT 04/15/2021 11:03 EDT Dg Collins MD HEMATOLOGY & PF4 ORD ERABLES Performing Organization Address City/[facility]/ZIP Co de Phone Number [facility] [address] [place] [address] * (ABNORMAL) MAGNESIUM (04/15/2021 10:22 EDT) Magnesium 1.4(L) 1.7 - 2.8 mg/dL 04/15/2021 11:26 EDT [facility] Blood VENOUS BLOOD / Unknown Venipuncture / Unknown 04/15/2021 10:22 EDT 04/15/2021 11:18 EDT Shirley Birmingham MD CHEMISTRY & BLOOD GA S ORDERABLES Performing Organization Address City/[facility] Co de Phone Number [facility] [address] [place] [address] * TYPE AND SCREEN (04/15/2021 10:15 EDT) ABO AB 04/15/2021 17:23 EDT [facility] Rh Factor Positive 04/15/2021 17:23 EDT [facility] Antibody Screen Negative 04/15/2021 17:23 EDT [facility] Specimen Expires: 04/18/2021 @ 23:59 04/15/2021 17:23 EDT [facility] Blood VENOUS BLOOD / Unknown Venipuncture / Unknown 04/15/2021 10:15 EDT 04/15/2021 16:12 EDT Shirley Birmingham MD BLOOD BANK TESTS [facility] [address] [place] [address] * (ABNORMAL) POCT GLUCOSE, INTERFACED (04/15/2021 10:05 EDT) Glucose, POC 102(H) 70 - 100 mg/dL 04/15/2021 10:10 EDT [facility] HN LAB POC COMMENT (GLUCOSE) Test Performed by Nursing Services 04/15/2021 10:10 EDT [facility] Blood CAPILLARY BLOOD / Unknown 04/15/2021 10:05 EDT 04/15/2021 10:10 EDT Jhon Rdz MD POINT OF CARE TEST ORDERABLES Performing Organization Address [facility] Co de Phone Number [facility] [address] [place] [address] * (ABNORMAL) PHOSPHORUS (04/15/2021 9:29 EDT) Pathologist [facility] Phosphorus 2.2(L) 2.5 - 4.5 mg/dL 04/15/2021 11:08 EDT [facility] Blood VENOUS BLOOD / Unknown Venipuncture / Unknown 04/15/2021 9:29 EDT 04/15/2021 9:34 EDT Dg Collins MD CHEMISTRY & BLOOD GA S ORDERABLES Performing Organization Address City/[facility]/ZIP Co de Phone Number [facility] [address] [place] [address] * TROPONIN I (04/15/2021 9:29 EDT) Troponin I (ng/mL) <0.034 <0.034 ng/mL 04/15/2021 10:04 EDT [facility] Blood VENOUS BLOOD / Unknown Venipuncture / Unknown 04/15/2021 9:29 EDT 04/15/2021 9:34 EDT Narrative [facility] - 04/15/2021 10:04 EDT The results of this assay can be falsely lowered due to the consumption of Biotin. Shirley Birmingham MD CHEMISTRY & BLOOD GA S ORDERABLES [facility] [address] [place] [address] * EKG 12-LEAD (04/15/2021 9:20 EDT) 04/15/2021 9:20 EDT Narrative [facility] EKG - 04/17/2021 14:33 EDT ? [facility] ? Test Date: ?2021-04-15 Pat Name: ? ERIKA HUSAIN ? Department: ?? [facility] [address] ? Room: ? BS322 Gender: ? Female ? 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 [id number] : ?1960 ? Requested By: RYLAN CONNOLLY Order Number: [id number] ? Reading MD: ?? CHRISTIAN NAYAK MD ? Measurements Intervals ?[place] ? Rate: ? 96 ? P: ? CT: ? 0 ?QRS: ?48 QRSD: ? 80 ? T: ?-28 QT: ? 366 ? QTc: ?463 ? Interpretive Statements NORMAL SINUS RHYTHM LOW QRS VOLTAGE IN PRECORDIAL LEADS NONSPECIFIC T-WAVE ABNORMALITY Technically poor tracing - please repeat ECG I reviewed the tracing and have either agreed or edited the findings in this report. Electronically Signed On 04-17-2021 14:33:29 EDT by CHRISTIAN NAYAK MD. Procedure Note Christian Nayak MD - 04/17/2021 [facility] Test Date: 2021-04-15 Pat Name: ERIKA HUSAIN Department: Man[facility]send Room: [facility] Gender: Female Arch Pad Cementer: [id number] : 1960 Requested By: RYLAN CONNOLLY Order Number: [id number] Reading MD: CHRISTIAN NAYAK MD Measurements Intervals [place] Rate: 96 P: CT: 0 QRS: 48 QRSD: 80 T: -28 QT: 366 QTc: 463 Interpretive Statements NORMAL SINUS RHYTHM LOW QRS VOLTAGE IN PRECORDIAL LEADS NONSPECIFIC T-WAVE ABNORMALITY Technically poor tracing - please repeat ECG I reviewed the tracing and have either agreed or edited the findings inthis report. Electronically Signed On 04-17-2021 14:33:29 EDT by CHRISTIAN APARICIO. Shirley Birmingham MD CARDIAC ECG ORDERABL ES Performing Organization Address City/[facility] Co de Phone Number [facility] EKG * POCT GLUCOSE, INTERFACED (04/15/2021 7:25 EDT) Glucose, POC 100 70 - 100 mg/dL 04/15/2021 8:13 EDT [facility] HN LAB POC COMMENT (GLUCOSE) Test Performed by Nursing Services 04/15/2021 8:13 EDT [facility] Blood CAPILLARY BLOOD / Unknown 04/15/2021 7:25 EDT 04/15/2021 8:13 EDT Jhon Rdz MD POINT OF CARE TEST ORDERABLES Performing Organization Address City/[facility]/ZIP Co de Phone Number [facility] [address] [place] [id number] * IBC (04/15/2021 5:43 EDT) Iron Binding Capacity 404 265 - 497 ug/dL 04/15/2021 8:54 EDT [facility] Blood VENOUS BLOOD / Unknown Venipuncture / Unknown 04/15/2021 5:43 EDT 04/15/2021 6:51 EDT Shirley Birmingham MD CHEMISTRY & BLOOD GA S ORDERABLES [facility] [address] [place] [address] * FERRITIN (04/15/2021 5:43 EDT) Ferritin 26 10 - 291 ng/mL 04/15/2021 10:56 EDT [facility] Blood VENOUS BLOOD / Unknown Venipuncture / Unknown 04/15/2021 5:43 EDT 04/15/2021 6:51 EDT Shirley Birmingham MD CHEMISTRY & BLOOD GA S ORDERABLES Performing Organization Address City/[facility]/ZIP Co de Phone Number [facility] [address] [place] [address] * IRON (04/15/2021 5:43 EDT) Iron 92 37 - 170 ug/dL 04/15/2021 8:45 EDT [facility] Blood VENOUS BLOOD / Unknown Venipuncture / Unknown 04/15/2021 5:43 EDT 04/15/2021 6:51 EDT Shirley Birmingham MD CHEMISTRY & BLOOD GA S ORDERABLES Performing Organization Address [facility]/ZIP Co de Phone Number [facility] [address] [place] [address] * AST (04/15/2021 5:43 EDT) AST 29 15 - 46 U/L 04/15/2021 7:20 EDT [facility] Blood VENOUS BLOOD / Unknown Venipuncture / Unknown 04/15/2021 5:43 EDT 04/15/2021 6:51 EDT Toi Hewitt MD CHEMISTRY & BLOOD GA S ORDERABLES Performing Organization Address [facility]/ZIP Co de Phone Number [facility] [address] [place] [address] * ALT (04/15/2021 5:43 EDT) ALT 26 <35 U/L 04/15/2021 7:20 EDT [facility] Blood VENOUS BLOOD / Unknown Venipuncture / Unknown 04/15/2021 5:43 EDT 04/15/2021 6:51 EDT Toi Hewitt MD CHEMISTRY & BLOOD GA S ORDERABLES Performing Organization Address City/[facility] Co de Phone Number [facility] [address] [place] [address] * ALKALINE PHOSPHATASE (04/15/2021 5:43 EDT) Alkaline Phosphatase 49 38 - 126 U/L 04/15/2021 7:20 EDT [facility] Blood VENOUS BLOOD / Unknown Venipuncture / Unknown 04/15/2021 5:43 EDT 04/15/2021 6:51 EDT Toi Hewitt MD CHEMISTRY & BLOOD GA S ORDERABLES Performing Organization Address City/[facility] Co de Phone Number [facility] [address] [place] [address] * (ABNORMAL) BILIRUBIN, TOTAL (04/15/2021 5:43 EDT) Bilirubin, Total 1.8(H) <1.4 mg/dL 04/15/2021 7:20 EDT [facility] Blood VENOUS BLOOD / Unknown Venipuncture / Unknown 04/15/2021 5:43 EDT 04/15/2021 6:51 EDT Toi Hewitt MD CHEMISTRY & BLOOD GA S ORDERABLES Performing Organization Address City/[facility] Co de Phone Number [facility] [address] [place] [address] * (ABNORMAL) MAGNESIUM (04/15/2021 5:43 EDT) Magnesium <0.5(LL) 1.7 - 2.8 mg/dL 04/15/2021 7:33 EDT [facility] Blood VENOUS BLOOD / Unknown Venipuncture / Unknown 04/15/2021 5:43 EDT 04/15/2021 6:51 EDT Toi Hewitt MD CHEMISTRY & BLOOD GA S ORDERABLES [facility] [address] [place] [address] * (ABNORMAL) COMPLETE BLOOD COUNT AND DIFFERENTIAL (04/15/2021 5:43 EDT) WBC 8.75 4.00 - 12.40 K/cmm 04/15/2021 6:59 EDT [facility] RBC 3.64(L) 3.86 - 5.04 M/cmm 04/15/2021 6:59 [facility] Hemoglobin 10.6(L) 11.6 - 15.2 gm/dL 04/15/2021 6:59 [facility] HCT 30.2(L) 34.9 - 44.4 % 04/15/2021 6:59 [facility] MCV 83 81 - 98 fl 04/15/2021 6:59 [facility] MCH 29.1 26.7 - 33.3 pg 04/15/2021 6:59 [facility] MCHC 35.1 32.1 - 35.9 gm/dL 04/15/2021 6:59 [facility] RDW-CV 14.6 <14.7 % 04/15/2021 6:59 [facility] RDW-SD 43.6 <50.4 fl 04/15/2021 6:59 [facility] PLT 342 141 - 377 K/cmm 04/15/2021 6:59 [facility] MPV 9.6 9.5 - 12.7 fl 04/15/2021 6:59 [facility] % Neutrophils 52.5 % 04/15/2021 6:59 [facility] % Lymphocytes 35.7 % 04/15/2021 6:59 [facility] % Monocytes 8.1 % 04/15/2021 6:59 EDT [facility] % Eosinophils 2.7 % 04/15/2021 6:59 EDT [facility] % Basophils 0.7 % 04/15/2021 6:59 [facility] % Immature Grans 0.3 % 04/15/20 6:59 T [facility] Absolute Neutrophils 4.59 2.20 - 8.85 K/cmm 04/15/2021 6:59 [facility] Absolute Lymphocytes 3.12 1.09 - 3.30 K/cmm 04/15/2021 6:59 [facility] Absolute Monocytes 0.71 0.10 - 0.80 K/cmm 04/15/2021 6:59 [facility] Absolute Eosinophils 0.24 0.03 - 0.61 K/cmm 04/15/2021 6:59 EDT [facility] ABS Basophils 0.06 0.01 - 0.11 K/cmm 04/15/2021 6:59 [facility] Absolute Immature Grans 0.03 0.00 - 0.06 K/cmm 04/15/2021 6:59 [facility] Type of Differential: Auto 04/15/2021 6:59 [facility] Blood VENOUS BLOOD / Unknown Venipuncture / Unknown 04/15/2021 5:43 EDT 04/15/2021 6:42 EDT Toi Hewitt MD PACKAGES & DNA PROBE ORDERABLES [facility] [address] [place] [address] * CREATININE (04/15/2021 5:43 EDT) Creatinine 0.93 0.52 - 1.04 mg/dL 04/15/2021 7:20 EDT [facility] eGFR 67 >60 mL/min/1.7 3m2 04/15/2021 7:20 EDT [facility] Comment:eGFR calculated en hanna CKD-EPI equation for non- Americans. Multiply eGFR by 1.16 for patients. Blood VENOUS BLOOD / Unknown Venipuncture / Unknown 04/15/2021 5:43 EDT 04/15/2021 6:51 EDT Toi Hewitt MD CHEMISTRY & BLOOD GA S ORDERABLES Performing Organization Address [facility] de Phone Number [facility] [address] [place] [address] * (ABNORMAL) ELECTROLYTES (04/15/2021 5:43 EDT) Sodium 144 136 - 145 mEq/L 04/15/2021 7:20 EDT [facility] Potassium 3.2(L) 3.5 - 5.0 mEq/L 04/15/2021 7:20 EDT [facility] Chloride 101 96 - 110 mEq/L 04/15/2021 7:20 EDT [facility] CO2 Total 28 22 - 32 mEq/L 04/15/2021 7:20 EDT [facility] Blood VENOUS BLOOD / Unknown Venipuncture / Unknown 04/15/2021 5:43 EDT 04/15/2021 6:51 EDT Toi Hewitt MD CHEMISTRY & BLOOD GA S ORDERABLES Performing Organization Address [facility] de Phone Number [facility] [address] [place] [address] * POCT GLUCOSE, INTERFACED (2021 23:43 EDT) Glucose, POC 83 70 - 100 mg/dL 04/15/2021 1:37 EDT [facility] HN LAB POC COMMENT (GLUCOSE) Test Performed by Nursing Services 04/15/2021 1:37 EDT [facility] Blood CAPILLARY BLOOD / Unknown 2021 23:43 EDT 04/15/2021 1:37 EDT Jhon Rdz MD POINT OF CARE TEST ORDERABLES Performing Organization Address City/[facility]/ZIP Co de Phone Number [facility] [address] [place] [address] * (ABNORMAL) ELECTROLYTES (2021 19:08 EDT) Sodium 143 136 - 145 mEq/L 2021 19:46 EDT [facility] Potassium 3.1(L) 3.5 - 5.0 mEq/L 2021 19:46 EDT [facility] Chloride 99 96 - 110 mEq/L 2021 19:46 EDT [facility] CO2 Total 30 22 - 32 mEq/L 2021 19:46 EDT [facility] Blood VENOUS BLOOD / Unknown Venipuncture / Unknown 2021 19:08 EDT 2021 19:22 EDT Toi Hewitt MD CHEMISTRY & BLOOD GA S ORDERABLES Performing Organization Address City/[facility]/ZIP Co de Phone Number [facility] [address] [place] [address] * BACTERIAL CULTURE, BLOOD (2021 19:08 EDT) Organism ID No Growth at 5 days 04/19/2021 19:30 EDT [facility] Blood VENOUS BLOOD / Unknown Blood Culture / Unknown 2021 19:08 EDT 2021 19:27 EDT Toi Hewitt MD MICROBIOLOGY - GENER AL ORDERABLES Performing Organization Address City/[facility]/ZIP Co de Phone Number [facility] [address] [place] [address] * BACTERIAL CULTURE, BLOOD (2021 19:08 EDT) Organism ID No Growth at 5 days 04/19/2021 19:30 EDT [facility] Blood VENOUS BLOOD / Unknown Blood Culture / Unknown 2021 19:08 EDT 2021 19:26 EDT Toi Hewitt MD MICROBIOLOGY - GENER AL ORDERABLES Performing Organization Address City/[facility]/ZIP Co de Phone Number [facility] [address] [place] [address] * POCT GLUCOSE, INTERFACED (2021 19:03 EDT) Pathologist [facility] Glucose, POC 77 70 - 100 mg/dL 2021 19:08 EDT [facility] HN LAB POC COMMENT (GLUCOSE) Test Performed by Nursing Services 2021 19:08 EDT [facility] Blood CAPILLARY BLOOD / Unknown 2021 19:03 EDT 2021 19:08 EDT Toi Hewitt MD POINT OF CARE TEST O RDERABLES Performing Organization Address City/[facility] Co de Phone Number [facility] [address] [place] [address] * EXPANDED RESPIRATORY VIRAL PANEL, PCR (DOES NOT INCLUDE INFLUENZA OR RSV) (2021 14:32 EDT) Pathologist [facility] Paraflu Type 1 Rslt (PF1RES) Negative Negative 04/15/2021 20:44 EDT [facility] Paraflu Type 2 Rslt (PF2RES) Negative Negative 04/15/2021 20:44 EDT [facility] Paraflu Type 3 Rslt (PF3RES) Negative Negative 04/15/2021 20:44 EDT [facility] Paraflu Type 4 Rslt Negative Negative 04/15 20:44 EDT [facility] Rhinovirus RNA Rslt (RVRES) Negative Negative 04/15/2021 20:44 EDT [facility] Metapneumovirus RNA Rslt (HMVRES) Negative Negative 04/15/2021 20:44 EDT [facility] Adenovirus DNA Rslt (ADVRES) Negative Negative 04/15/2021 20:44 EDT [facility] Swab ENTIRE NASOPHARYNX / Unknown Swab / Unknown 2021 14:32 EDT 2021 14:35 EDT Shirley Birmingham MD MICROBIOLOGY - GENER AL ORDERABLES Performing Organization Address [facility] Co de Phone Number [facility] [address] [place] [address] * INFLUENZA A AND B,RSV PCR (2021 14:32 EDT) FLU A RNA Result (FLARES) Negative Negative 04/15/2021 20:44 EDT [facility] FLU B RNA Result (FLBRES) Negative Negative 04/15/2021 20:44 EDT [facility] RSV RNA Result (RSVRES) Negative Negative 04/15/2021 20:44 EDT [facility] Performing Lab [place] [facility] Lab 04/15/2021 20:44 EDT [facility] Swab ENTIRE NASOPHARYNX / Unknown Swab / Unknown 2021 14:32 EDT 2021 14:35 EDT Shirley Birmingham MD MICROBIOLOGY - GENER AL ORDERABLES Performing Organization Address [facility] Co de Phone Number [facility] [address] [place] [address] * COVID-19 TEST [facility] PCR (2021 14:32 EDT) Swab ENTIRE NASOPHARYNX / Unknown Swab / Unknown 2021 14:32 EDT 2021 14:35 EDT Nel Borges MD MPH MICROBIOLOGY - GENERAL ORDERABLES Performing Organization Address [facility] Co de Phone Number [facility] [address] [place] [address] * COVID-19 TESTING (2021 14:32 EDT) COVID-19 rt-PCR Result Negative Negative 2021 22:24 EDT [facility] Comment: This test has not been FDA cleared or approved. This test has been authorized by FDA under an EUA for use by authorized laboratories. This test has been authorized only for detection of nucleic acid from 2019-nCoV, not for any other viruses or pathogens. This test is only authorized for the duration of the declaration that circumstances exist justifying the authorization of emergency use of in vitro diagnostic tests for detection and/or diagnosis of 2019-nCoV under section 564(b)(1) of Act, 21 U.S.C ?? 360bbb-3(b) (1), unless the authorization is terminated or revoked sooner. Negative results do not preclude 2019-nCoV infection and should not be used as the sole basis for treatment or other patient management decisions. Negative results must be combined with clinical observations, patient history, and epidemiological information. Performed on the [employer] instrument Performing Lab [place] [facility] 2021 22:24 EDT [facility] Swab ENTIRE NASOPHARYNX / Unknown Swab / Unknown 2021 14:32 EDT 2021 14:35 EDT Nel Borges MD MPH MICROBIOLOGY - GENERAL ORDERABLES Performing Organization Address City/[facility]/ZIP Co de Phone Number [facility] [address] [place] [address] * TSH (2021 13:02 EDT) TSH 1.11 0.47 - 4.68 uIU/mL 2021 19:19 EDT [facility] Blood VENOUS BLOOD / Unknown Venipuncture / Unknown 2021 13:02 EDT 2021 13:07 EDT Narrative [facility] - 2021 19:19 EDT The results of this assay can be falsely lowered due to the consumption of Biotin. Jhon Rdz MD CHEMISTRY & BLOOD GAS ORDERABLES Performing Organization Address City/[facility]/ZIP Co de Phone Number [facility] [address] [place] [address] * C REACTIVE PROTEIN (2021 13:02 EDT) C-Reactive Protein <7.0 <10.0 mg/L 2021 16:56 EDT [facility] Blood VENOUS BLOOD / Unknown Venipuncture / Unknown 2021 13:02 EDT 2021 13:07 EDT Toi Hewitt MD CHEMISTRY & BLOOD GA S ORDERABLES Performing Organization Address [facility] Co de Phone Number [facility] [address] [place] [address] * TROPONIN I (2021 13:02 EDT) Pathologist [facility] Troponin I (ng/mL) <0.034 <0.034 ng/mL 2021 13:44 EDT [facility] Blood VENOUS BLOOD / Unknown Venipuncture / Unknown 2021 13:02 EDT 2021 13:07 EDT Narrative [facility] - 2021 13:44 EDT The results of this assay can be falsely lowered due to the consumption of Biotin. Nel Borges MD MPH CHEMISTRY & BLO OD GAS ORDERABLES Performing Organization Address [facility] Co de Phone Number [facility] [address] [place] [address] * (ABNORMAL) POCT URINE DIPSTICK, CLINITEK (2021 12:46 EDT) Color, UA Yellow Yellow 2021 12:48 EDT [facility] Clarity, UA Slightly Cloudy(A) Clear 2021 12:48 EDT [facility] Glucose, UA Negative Negative mg/dL 2021 12:48 EDT [facility] Bilirubin, UA Negative Negative 2021 12:48 EDT [facility] Ketones, UA 1+(A) Negative mg/dL 2021 12:48 EDT [facility] Specific Mission, Urine <=1.005 1.001 - 1.035 2021 12:48 EDT [facility] Blood, UA Negative Negative 2021 12:48 EDT [facility] pH, UA 6.0 <=8 2021 12:48 EDT [facility] Protein, UA 1+(A) Negative mg/dL 2021 12:48 EDT [facility] Urobilinogen, UA 0.2 0.2 - 1.0 EU/dL 2021 12:48 EDT [facility] Nitrite, UA Negative Negative 2021 12:48 EDT [facility] Leuk Esterase Negative Negative 2021 12:48 EDT [facility] HN LAB COMMENT (CLINITEK, UR) Test performed at Emergency Department 2021 12:48 EDT [facility] Urine URINE SPECIMEN COLLECTION, CLEAN CATCH / Unknown 2021 12:46 EDT 2021 12:48 EDT Nel Borges MD MPH POINT OF CARE T EST ORDERABLES Performing Organization Address [facility] Co de Phone Number [facility] [address] [place] [address] * POCT CSN BARCODE URINE DIPSTICK (2021 12:41 EDT) Urine URINE SPECIMEN COLLECTION, CLEAN CATCH / Unknown Urine Collect / Unknown 2021 12:41 EDT 2021 12:41 EDT Nel Borges MD MPH LAB INFO SERVIC E AND SUPPORT & PHONE RESULT Performing Organization Address [facility]/ZIP Co de Phone Number [facility] [address] [place] [address] * (ABNORMAL) BACTERIAL CULTURE, URINE (2021 12:40 EDT) Organism ID [id number], [id number] to 100,000 CFU/ml Enterococcus faecalis(A) VITEK SUSCEPTIBILITY 04/16/2021 7:30 EDT [facility] Comment:Ampicillin or Amoxac illin are the drugs of choice for treating Enterococcus infections (including VRE) limited to the lower tract. Organism ID Less than 10,000 CFU/ml Usual urogenital iona. VITEK SUSCEPTIBILITY 04/16/2021 7:30 EDT [facility] Urine URINE SPECIMEN COLLECTION, CLEAN CATCH / Unknown Urine Collect / Unknown 2021 12:40 EDT 2021 13:07 EDT Narrative Organism Antibiotic Method Susceptibility Enterococcus faecalis Nitrofurantoin VITEK SUSCEPTIBIL ITY <=16 ug/mL: Susceptible Enterococcus faecalis Vancomycin VITEK SUSCEPTIBILIT Y 1 ug/mL: Susceptible Nel Borges MD MPH MICROBIOLOGY - GENERAL ORDERABLES [facility] [address] [place] [id number] * (ABNORMAL) URINE SEDIMENT (MICRO) WITH REFLEX TO CULTURE (2021 12:40 EDT) Urine RBC Count, Auto 3 - 10(A) 0 - 2 Cells/HPF 2021 13:07 T [facility] Urine WBC Count, Auto 11 - 50(A) 0 - 3 Cells/HPF 2021 13:07 T [facility] Urine Squamous Count, Auto Few(A) None Seen Cells/HPF 2021 13:07 T [facility] Urine Hyaline Cast Count, Auto <=10 <=10 Casts/LPF 2021 13:07 [facility] Urine Bacteria Count, Auto None Seen None Seen Bacteria/H PF 2021 13:07 EDT [facility] Urine URINE SPECIMEN COLLECTION, CLEAN CATCH / Unknown Urine Collect / Unknown 2021 12:40 EDT 2021 12:49 EDT Narrative [facility] - 2021 13:07 EDT A Urine Culture test has been reflexively ordered based on result criteria from the Urine Sediment Analysis. Urine Sediment Analysis results are unreliable on urines that are unrefrigerated for >2 hrs or refrigerated >8 hrs. Nel Borges MD MPH URINALYSIS ARNOLDO TREJO [facility] [address] [place] [address] * EKG 12-LEAD (2021 12:35 EDT) 2021 12:3 5 EDT Narrative [facility] - 04/16/2021 11:56 EDT ?[facility] Emergency ? Test Date: ?2021 Pat Name: ? ERIKA HUSAIN ? Department: ?? ED ? Room: ? WA08 Gender: ? Female ? 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 [id number] : ?1960 ? Requested By: JONY Pradhan Order Number: [id number] ? Kasi JARVIS: ?? HIMA SALAZAR MD ? Measurements Intervals ?[place] ? Rate: ? 87 ? P: ?67 CT: ? 151 ?QRS: ?65 QRSD: ? 112 ?T: ?23 QT: ? 381 ? QTc: ?459 ? Interpretive Statements SINUS RHYTHM MODERATE INTRAVENTRICULAR CONDUCTION DELAY ST DEVIATION AND MODERATE T-WAVE ABNORMALITY, CONSIDER ANTERIOR ISCHEMIA ST DEVIATION AND MODERATE T-WAVE ABNORMALITY, CONSIDER INFERIOR ISCHEMIA Compared to ECG 2021 12:26:04 Intraventricular conduction delay now present Possible ischemia now present T-wave abnormality still present I reviewed the tracing and have either agreed or edited the findings in this report. Electronically Signed On 04-16-2021 11:56:19 EDT by HIMA SALAZAR MD. Procedure Note Hima Salazar MD - 04/16/2021 [facility] Emergency Test Date: 2021 Pat Name: ERIKA HUSAIN Department: ED Room: [facility] Gender: Female Arch Pad Cementer: [id number] : 1960 Requested By: JONY Pradhan Order Number: [id number] Reading MD: HIMA SALAZAR MD Measurements Intervals [place] Rate: 87 P: 67 CT: 151 QRS: 65 QRSD: 112 T: 23 QT: 381 QTc: 459 Interpretive Statements SINUS RHYTHM MODERATE INTRAVENTRICULAR CONDUCTION DELAY ST DEVIATION AND MODERATE T-WAVE ABNORMALITY, CONSIDER ANTERIOR ISCHEMIA ST DEVIATION AND MODERATE T-WAVE ABNORMALITY, CONSIDER INFERIOR ISCHEMIA Compared to ECG 2021 12:26:04 Intraventricular conduction delay now present Possible ischemia now present T-wave abnormality still present I reviewed the tracing and have either agreed or edited the findings inthis report. Electronically Signed On 04-16-2021 11:56:19 EDT by HIMA CUNHA. Nel Borges MD MPH CARDIAC ECG ORD ERABLES [facility] * EKG 12-LEAD (2021 12:24 EDT) 2021 12:2 4 EDT Narrative [facility] E[facility] - 04/16/2021 11:55 EDT ?[facility] Emergency ? Test Date: ?2021 Pat Name: ? ERIKA HUSAIN ? Department: ?? ED ? Room: ? WA08 Gender: ? Female ? 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 : ?1960 ? Requested By: JONY Pradhan Order Number: [id number] ? Reading : ?? HIMA SALAZAR MD ? Measurements Intervals ?[place] ? Rate: ? 86 ? P: ?57 CT: ? 154 ?QRS: ?59 QRSD: ? 102 ?T: ?29 QT: ? 390 ? QTc: ?468 ? Interpretive Statements SINUS RHYTHM LOW QRS VOLTAGE IN PRECORDIAL LEADS NONSPECIFIC T-WAVE ABNORMALITY Compared to ECG 06/12/2013 01:11:14 Sinus tachycardia no longer present T-wave abnormality still present I reviewed the tracing and have either agreed or edited the findings in this report. Electronically Signed On 04-16-2021 11:55:36 EDT by HIMA SALAZAR MD. Procedure Note Hima Salazar MD - 04/16/2021 [facility] Emergency Test Date: 2021 Pat Name: ERIKA HUSAIN Department: ED Room: [facility] Gender: Female Arch Pad Cementer: : 1960 Requested By: JONY Pradhan Order Number: [id number] Reading MD: HIMA SALAZAR MD Measurements Intervals [place] Rate: 86 P: 57 CT: 154 QRS: 59 QRSD: 102 T: 29 QT: 390 QTc: 468 Interpretive Statements SINUS RHYTHM LOW QRS VOLTAGE IN PRECORDIAL LEADS NONSPECIFIC T-WAVE ABNORMALITY Compared to ECG 06/12/2013 01:11:14 Sinus tachycardia no longer present T-wave abnormality still present I reviewed the tracing and have either agreed or edited the findings inthis report. Electronically Signed On 04-16-2021 11:55:36 EDT by HIMA CUNHA. Nel Borges MD MPH CARDIAC ECG ORD ERABLES [facility] EKG * CT ABDOMEN PELVIS W CONTRAST (2021 12:11 EDT) Anatomical Region Laterality Modality Body, Abdomen, Pelvis, Abdomen and Pelvis Computed Tomography 2021 12:2 6 EDT Impressions 2021 12:26 EDT 1. ??The sigmoid colon and rectum demonstrate mild mucosal hyperemia and mild wall thickening but without without evidence of surrounding inflammatory stranding. These findings may represent a mild proctocolitis in the appropriate clinical setting. 2. ??Hepatic steatosis. 3. ??Hepatic cyst. Narrative 2021 12:[address] ABDOMEN PELVIS W CONTRAST ??2021 11:55 AM Signs and Symptoms/Comments: ?? prior right hemicolectomy for obstruction, concern for SBO verses acute infection, or perforated viscous; LLQ abdominal pain, diverticulitis suspected; Bowel obstruction high-grade suspected Technique: CT of the abdomen and pelvis was performed following the administration intravenous contrast; coronal and sagittal multiplanar reconstructions generated. Comparison: CT abdomen pelvis September 24, 2018 July 17, 2013. Findings: Lower chest: Calcified granuloma in the left lung base. Stable 4 mm nodule in the right lung base is not substantially changed from August 2018. . Hepatobiliary: Hypoattenuation of the hepatic parenchyma is consistent with steatosis. There is a cyst in the left lobe of liver, unchanged. No suspicious hepatic lesion. Gallbladder is surgically absent. Prominence of the common bile duct is consistent with post cholecystectomy status. Spleen, pancreas, adrenal glands: No abnormalities. Kidneys, ureters, bladder: The kidneys are normal in size and enhance symmetrically. No hydronephrosis, nephrolithiasis, or suspicious renal mass. Ureters are normal in caliber. There is underdistended, and therefore not well assessed. Uterus, ovaries: Uterus is surgically absent. No adnexal mass. Tubal ligation clips are present. Bowel: An ileocecal anastomosis is seen in the right lower quadrant. Small bowel loops are normal in caliber, without evidence of obstruction. The sigmoid colon and rectum demonstrate mild mucosal hyperemia mild wall thickening but no evidence of surrounding inflammatory stranding. Peritoneal cavity / Subperitoneal space: No free fluid or free air. Lymphovascular: Abdominal aorta is normal in caliber. Stable francisco hepatic lymph node measuring top normal in size is likely reactive. Abdominal wall: Postsurgical changes are seen in the anterior abdominal all. No bowel containing hernia. Musculoskeletal: Degenerative changes in the lower lumbar spine. No suspicious osseous lesion or acute fracture. Expressive Art Therapist: ??No additional findings. Procedure Note Radha Bowen MD - 2021 CT ABDOMEN PELVIS W CONTRAST 2021 11:55 AM Signs and Symptoms/Comments: prior right hemicolectomy for obstruction, concern for SBO verses acuteinfection, or perforated viscous; LLQ abdominal pain, diverticulitissuspected; Bowel obstruction high-grade suspected Technique: CT of the abdomen and pelvis was performed following the administrationintravenous contrast; coronal and sagittal multiplanar reconstructionsgenerated. Comparison: CT abdomen pelvis September 24, 2018 July 17, 2013. Findings: Lower chest: Calcified granuloma in the left lung base. Stable 4 mm nodulein the right lung base is not substantially changed from August 2018. . Hepatobiliary: Hypoattenuation of the hepatic parenchyma is consistentwith steatosis. There is a cyst in the left lobe of liver, unchanged. Nosuspicious hepatic lesion. Gallbladder is surgically absent. Prominence ofthe common bile duct is consistent with post cholecystectomy status. Spleen, pancreas, adrenal glands: No abnormalities. Kidneys, ureters, bladder: The kidneys are normal in size and enhancesymmetrically. No hydronephrosis, nephrolithiasis, or suspicious renalmass. Ureters are normal in caliber. There is underdistended, andtherefore not well assessed. Uterus, ovaries: Uterus is surgically absent. No adnexal mass. Tuballigation clips are present. Bowel: An ileocecal anastomosis is seen in the right lower quadrant. Smallbowel loops are normal in caliber, without evidence of obstruction. Thesigmoid colon and rectum demonstrate mild mucosal hyperemia mild wallthickening but no evidence of surrounding inflammatory stranding. Peritoneal cavity / Subperitoneal space: No free fluid or free air. Lymphovascular: Abdominal aorta is normal in caliber. Stable francisco hepaticlymph node measuring top normal in size is likely reactive. Abdominal wall: Postsurgical changes are seen in the anterior abdominalall. No bowel containing hernia. Musculoskeletal: Degenerative changes in the lower lumbar spine. Nosuspicious osseous lesion or acute fracture. Expressive Art Therapist: No additional findings. IMPRESSION 1. The sigmoid colon and rectum demonstrate mild mucosal hyperemia andmild wall thickening but without without evidence of surroundinginflammatory stranding. These findings may represent a mild proctocolitisin the appropriate clinical setting. 2. Hepatic steatosis. 3. Hepatic cyst. Nel Borges MD MPH IMG CT ORDERABL ES * HOLD SST (2021 11:18 EDT) Hold Hold 2021 12:31 EDT [facility] Blood VENOUS BLOOD / Unknown Venipuncture / Unknown 2021 11:18 EDT 2021 11:22 EDT Nel Borges MD MPH LAB INFO SERVIC E AND SUPPORT & PHONE RESULT [facility] [address] [place] [address] * HOLD BLUE TOP (2021 11:18 EDT) Hold Hold 2021 12:31 EDT [facility] Blood VENOUS BLOOD / Unknown Venipuncture / Unknown 2021 11:18 EDT 2021 11:22 EDT Nel Borges MD MPH LAB INFO SERVIC E AND SUPPORT & PHONE RESULT Performing Organization Address [facility]/ZIP Co de Phone Number [facility] [address] [place] [address] * (ABNORMAL) HEMOGLOBIN A1C (2021 11:08 EDT) Hemoglobin A1c 5.8(H) <5.7 % 2021 19:08 EDT [facility] Comment: New methodology in use 01/28/2021 Glycemic Status References: Normal: ??<5.7% Pre-Diabetes: ??5.7% - 6.4% Diagnostic of Diabetes: ??> or = 6.5% (if confirmed) Goals for glycemic control in diabetics (ADA 2017): <7.0% target for non adults with diabetes. <7.5% target for children and adolescents with Type I Diabetes. More or less stringent targets may be appropriate for individual patients. Est Avg Glucose 120 mg/dL 19:08 EDT [facility] Comment:The eAG represents t he A1c result expressed as average glucose in mg/dL. Blood VENOUS BLOOD / Unknown Venipuncture / Unknown 2021 11:08 EDT 2021 11:22 EDT Toi Hewitt MD CHEMISTRY & BLOOD GA S ORDERABLES Performing Organization Address [facility] Co de Phone Number [facility] [address] [place] [address] * TISSUE TRANSGLUTAMINASE AB (2021 11:08 EDT) Tissue Transglutaminase Antibody IGA <1.2 <4.0 U/mL 04/19/2021 13:31 EDT [facility] Comment: A negative result may be due to IgA deficiency and does not rule out celiac disease. ? Negative: ??<4.0 U/mL ? Weak Positive: ??4.0 - 10.0 U/mL ? Positive: ??>10.0 U/mL Results were obtained with the [employer] LLCA Lite R h-tTG IgA JESS assay on the [employer]. Blood VENOUS BLOOD / Unknown Venipuncture / Unknown 2021 11:08 EDT 2021 11:22 EDT Toi Hewitt MD IMMUNOLOGY AND SEROL OGY ORDERABLES Performing Organization Address [facility] Co de Phone Number [facility] [address] [place] [address] * LIPASE (2021 11:08 EDT) Pathologist [facility] Lipase 238 <251 U/L 2021 11:49 EDT [facility] Blood VENOUS BLOOD / Unknown Venipuncture / Unknown 2021 11:08 EDT 2021 11:22 EDT Nel Borges MD MPH CHEMISTRY & BLO OD GAS ORDERABLES Performing Organization Address [facility] Co de Phone Number [facility] [address] [place] [address] * (ABNORMAL) COMPREHENSIVE METABOLIC PANEL (CMP) (2021 11:08 EDT) Sodium 145 136 - 145 mEq/L 2021 11:51 EDT [facility] Potassium 2.6(LL) 3.5 - 5.0 mEq/L 2021 11:51 EDT [facility] Chloride 100 96 - 110 mEq/L 2021 11:51 EDT [facility] CO2 Total 26 22 - 32 mEq/L 2021 11:51 [facility] Glucose 174(H) 70 - 100 mg/dL 2021 11:51 [facility] BUN 16 10 - 26 mg/dL 2021 11:51 [facility] Creatinine 1.12(H) 0.52 - 1.04 mg/dL 2021 11:51 [facility] eGFR 54(L) >60 mL/min/1.7 3m2 2021 11:51 [facility] Comment:eGFR calculated en hanna CKD-EPI equation for non- Americans. Multiply eGFR by 1.16 for patients. Total Protein 7.5 6.3 - 8.2 g/dL 2021 11:51 [facility] Albumin 4.6 3.4 - 4.9 g/dL 2021 11:51 [facility] Alkaline Phosphatase 51 38 - 126 U/L [address] [facility] AST 43 15 - 46 U/L 2021 11:51 [facility] ALT 29 <35 U/L 2021 11:51 [facility] Bilirubin, Total 1.7(H) <1.4 mg/dL 04/14/20 11:51 [facility] Calcium 9.4 8.5 - 10.5 mg/dL 2021 11:51 [facility] Calculated Calcium 8.9 8.5 - 10.5 mg/dL 2021 11:51 [facility] Blood VENOUS BLOOD / Unknown Venipuncture / Unknown 2021 11:08 EDT 2021 11:22 EDT Nel Borges MD MPH CHEMISTRY & BLO OD GAS ORDERABLES [facility] [address] [place] [address] * (ABNORMAL) COMPLETE BLOOD COUNT AND DIFFERENTIAL (2021 11:08 EDT) WBC 10.55 4.00 - 12.40 K/cmm 2021 11:37 [facility] RBC 4.34 3.86 - 5.04 M/cmm 2021 11:37 [facility] Hemoglobin 12.7 11.6 - 15.2 gm/dL 2021 11:37 [facility] HCT 35.5 34.9 - 44.4 % 2021 11:37 [facility] MCV 82 81 - 98 fl 2021 11:37 [facility] MCH 29.3 26.7 - 33.3 pg 2021 11:37 [facility] MCHC 35.8 32.1 - 35.9 gm/dL 2021 11:37 [facility] RDW-CV 14.4 <14.7 % 2021 11:37 [facility] RDW-SD 42.0 <50.4 fl 2021 11:37 [facility] PLT 453(H) 141 - 377 K/cmm 2021 11:37 [facility] MPV 9.2(L) 9.5 - 12.7 fl 2021 11:37 [facility] % Neutrophils 66.1 % 2021 11:37 [facility] % Lymphocytes 24.3 % 2021 11:37 [facility] % Monocytes 7.6 % 2021 11:37 [facility] % Eosinophils 0.9 % 2021 11:37 [facility] % Basophils 0.7 % 2021 11:37 [facility] % Immature Grans 0.4 % 04/14/20 11:37 [facility] Absolute Neutrophils 6.98 2.20 - 8.85 K/cm 2021 11:37 [facility] Absolute Lymphocytes 2.56 1.09 - 3.30 K/cm 2021 11:37 [facility] Absolute Monocytes 0.80 0.10 - 0.80 K/cm 2021 11:37 [facility] Absolute Eosinophils 0.10 0.03 - 0.61 K/cm 2021 11:37 [facility] ABS Basophils 0.07 0.01 - 0.11 K/cm 2021 11:37 [facility] Absolute Immature Grans 0.04 0.00 - 0.06 K/[facility] 2021 11:37 [facility] Type of Differential: Auto 2021 11:37 [facility] Blood VENOUS BLOOD / Unknown Venipuncture / Unknown 2021 11:08 EDT 2021 11:22 EDT Nel Borges MD MPH PACKAGES & DNA PROBE ORDERABLES Performing Organization Address City/[facility] Co de Phone Number [facility] [address] [place] [address] * (ABNORMAL) POCT GLUCOSE, INTERFACED (2021 10:35 EDT) Glucose, POC 179(H) 70 - 100 mg/dL 2021 10:36 EDT [facility] HN LAB POC COMMENT (GLUCOSE) Test Performed by Nursing Services 2021 10:36 EDT [facility] Blood CAPILLARY BLOOD / Unknown 2021 10:35 EDT 2021 10:36 EDT Nel Borges MD MPH POINT OF CARE T EST ORDERABLES Performing Organization Address City/[facility]/ZIP Co de Phone Number [facility] [address] [place] [id number] documented in this encounter Visit Diagnoses Diagnosis Generalized abdominal pain Abdominal pain, generalized Colitis Other and unspecified noninfectious gastroenteritis and colitis Functional diarrhea Other hemorrhoids C. difficile diarrhea Intestinal infection due to clostridium difficile Diarrhea Generalized abdominal pain Abdominal pain, generalized Colitis Other and unspecified noninfectious gastroenteritis and colitis Chronic pain syndrome Chronic post-traumatic stress disorder Posttraumatic stress disorder documented in this encounter Admitting Diagnoses Diagnosis Diarrhea documented in this encounter Administered Medications Inactive Administered Medications - up to 3 most recent administrations Medication Order MAR Action Action Date Dose Rate Site acetaminophen (TYLENOL) tablet 1,000 mg 1,000 mg, oral, EVERY 6 HOURS, First dose (after last modification) on Mon04/14/21 at 1800, Until Discontinued, Routine Given 04/18/2021 12:00 EDT 1,000 mg Given 04/18/2021 5:12 EDT 1,000 mg Given 04/17/2021 23:50 EDT 1,000 mg albuterol inhaler 180 mcg 180 mcg (2 Puff), inhalation, EVERY 4 HOURS, First dose on Mon04/14/21 at 1615, Until Discontinued, Routine Given 04/15/2021 5:27 EDT 180 mcg Given 04/15/2021 1:48 EDT 180 mcg Given 2021 21:18 EDT 180 mcg albuterol inhaler 180 mcg 180 mcg (2 Puff), inhalation, EVERY 4 HOURS PRN, Starting on Mon04/15/21 at 1000, Until Mon04/18/21 at 1729, Wheezing, Routine Given 04/16/2021 8:36 EDT 180 mcg ampicillin (OMNIPEN) 1,000 mg in sodium chloride (NS MBP) 50 mL infusion 1,000 mg, intravenous, EVERY 6 HOURS, 20 doses, First dose on Mon04/16/21 at 1800, Last dose on Mon04/21/21 at 1200, Routine Given 04/18/2021 12:01 EDT 1,00 0 mg Given 04/18/2021 5:16 EDT 1,000 mg Given 04/17/2021 23:50 EDT 1,000 mg ampicillin (OMNIPEN) 500 mg in sodium chloride (NS MBP) 50 mL infusion 500 mg, intravenous, EVERY 6 HOURS, 28 doses, First dose on Mon04/15/21 at 1345, Last dose on [place] 04/22/21 at 0745, Routine Given 04/15/2021 14:24 EDT 500 mg ampicillin-sulbactam (UNASYN) 3,000 mg in sodium chloride (NS MBP) 100 mL infusion 3,000 mg (3 g), intravenous, Administer over 30 Minutes, EVERY 6 HOURS, 10 doses, First dose on [place] 04/15/21 at 1830, Last dose on Mon04/18/21 at 0030, Type of Therapy: Empiric, Suspected Indication (Select all that apply): Other, Other Indication: Intra-abd infx, enterococcus UTI, ID Consult: No, Routine Given 04/16/2021 12:17 EDT 3,00 0 mg Given 04/16/2021 5:31 EDT 3,000 mg Given 04/16/2021 0:02 EDT 3,000 mg cefTRIAXone (ROCEPHIN) 2,000 mg in sodium chloride (NS MBP) 50 mL IVPB 2,000 mg, intravenous, Administer over 30 Minutes, DAILY, 7 doses, First dose on [place] 04/15/21 at 1245, Last dose on Mon04/21/21 at 0900, Type of Therapy: Empiric, Suspected Indication (Select all that apply): Community acquired intra-abdominal infection, ID Consult: No, Routine Given 04/15/2021 14:23 EDT 2,000 mg dextrose 5 % and 0.45 % NaCl with KCl 20 mEq/L infusion at 75 mL/hr, intravenous, CONTINUOUS, Starting on Shirley 04/15/21 at 0615, Until Shirley 04/15/21 at 1201, Routine New Bag 04/15/2021 7:27 EDT 75 mL/hr hydrocortisone 2.5 % cream topical, 2 TIMES DAILY, First dose on Mon04/14/21 at 2100, Until Discontinued Given 04/18/2021 8:12 EDT Given 04/17/2021 22:20 EDT Given 04/17/2021 8:40 EDT HYDROmorphone (PF) (DILAUDID) 0.5 mg/0.5 mL syringe 0.5 mg 0.5 mg, intravenous, NOW X1, 1 dose, On Shirley 04/15/21 at 0930, Routine Given 04/15/2021 9:53 EDT 0.5 mg iohexoL (OMNIPAQUE 350) solution 100 mL 100 mL, intravenous, Once in imaging, 1 dose, Starting on Mon04/14/21 at 1200, Until Mon04/14/21 at 1211, Routine, Imaging Protocol Orders Given 2021 12:11 EDT 95 mL iohexoL (OMNIPAQUE 350) solution 100 mL 100 mL, intravenous, Once in imaging, 1 dose, Starting on Mon04/15/21 at 1337, Until Mon04/15/21 at 1354, Routine, Imaging Protocol Orders Given 04/15/2021 13:54 EDT 95 mL IV ipratropium-albuteroL (DUONEB) 0.5 mg-3 mg(2.5 mg base)/3 mL nebulizer solution 3 mL 3 mL, nebulization, NOW X1, 1 dose, On Mon04/15/21 at 0930, Routine Given 04/15/2021 9:40 EDT 3 mL ipratropium-albuteroL (DUONEB) 0.5 mg-3 mg(2.5 mg base)/3 mL nebulizer solution 3 mL 3 mL, nebulization, 4 TIMES DAILY, 4 doses, First dose (after last modification) on Mon04/15/21 at 1200, Last dose on Mon04/16/21 at 0800, Routine Given 04/16/2021 9:12 EDT 3 mL Given 04/15/2021 20:31 EDT 3 mL Given 04/15/2021 16:23 EDT 3 mL lactated ringers (LR) infusion at 75 mL/hr, 1,000 mL, intravenous, CONTINUOUS, Starting on Mon04/14/21 at 1845, Until Mon04/15/21 at 0546, Routine New Bag 2021 18:57 EDT 1,000 mL 75 mL/hr lactated ringers BOLUS 1,000 mL 1,000 mL, intravenous, NOW X1, 1 dose, On Mon04/14/21 at 1100, STAT New Bag 2021 11:18 EDT 1,000 mL lactated ringers BOLUS 1,000 mL 1,000 mL, intravenous, NOW X1, 1 dose, On Mon04/15/21 at 1230, Routine Given 04/15/2021 12:14 EDT 1,000 mL lactated ringers BOLUS 1,000 mL 1,000 mL, intravenous, NOW X1, 1 dose, On Mon04/15/21 at 1800, Routine Given 04/15/2021 17:54 EDT 1,000 mL lactated ringers BOLUS 1,000 mL 1,000 mL, intravenous, NOW X1, 1 dose, On Mon04/16/21 at 1900, Routine Given 04/16/2021 22:56 EDT 1,000 mL loratadine (CLARITIN) tablet 10 mg 10 mg, oral, DAILY, First dose on Mon04/15/21 at 0900, Until Discontinued, Routine Given 04/18/2021 8:11 EDT 10 mg Given 04/17/2021 8:37 EDT 10 mg Given 04/16/2021 8:32 EDT 10 mg LORazepam (ATIVAN) 2 mg/mL injection 1 dose, Starting on Mon04/15/21 at 1006, Until Mon04/15/21 at 1020 Given 04/15/2021 10:20 EDT 2 mg LORazepam (ATIVAN) injection 1 mg 1 mg, intravenous, NOW X1, 1 dose, On Mon04/16/21 at 1015 Given 04/16/2021 10:12 EDT 1 mg lovastatin (MEVACOR) tablet 20 mg 20 mg, oral, DAILY, First dose on Mon04/15/21 at 0900, Until Discontinued, Routine Given 04/18/2021 8:11 EDT 20 mg Given 04/17/2021 8:37 EDT 20 mg Given 04/16/2021 8:32 EDT 20 mg magnesium sulfate 2 g in water 50 mL 2 g, intravenous, Administer over 30 Minutes, NOW X1, 1 dose, On Mon04/15/21 at 0815, Routine Given 04/15/2021 8:47 EDT 2 g magnesium sulfate 2 g in water 50 mL 2 g, intravenous, Administer over 30 Minutes, NOW X1, 1 dose, On Mon04/15/21 at 1030, STAT Given 04/15/2021 10:19 EDT 2 g magnesium sulfate 2 g in water 50 mL 2 g, intravenous, Administer over 30 Minutes, NOW X1, 1 dose, On Mon04/15/21 at 1030, STAT Given 04/15/2021 10:43 EDT 2 g magnesium sulfate 2 g in water 50 mL 2 g, intravenous, Administer over 30 Minutes, NOW X1, 1 dose, On Mon04/15/21 at 1800, Routine Given 04/15/2021 18:19 EDT 2 g magnesium sulfate 2 g in water 50 mL 2 g, intravenous, Administer over 30 Minutes, NOW X1, 1 dose, On Mon04/16/21 at 1900, Routine Given 04/16/2021 23:03 EDT 2 g metroNIDAZOLE (FLAGYL) tablet 500 mg 500 mg, oral, EVERY 8 HOURS, 21 doses, First dose on Mon04/15/21 at 1300, Last dose on Mon04/22/21 at 0500, Routine Given 04/15/2021 14:22 EDT 500 mg mometasone-formoterol (DULERA) 100-5 mcg/actuation inhaler 2 Puff 2 Puff, inhalation, 2 TIMES DAILY, First dose on Mon04/14/21 at 2100, Until Discontinued Given 04/18/2021 8:12 EDT 2 Pu ffs Given 04/17/2021 21:27 EDT 2 Puffs Given 04/17/2021 8:40 EDT 2 Puffs morphine injection 0.5 mg 0.5 mg, intravenous, EVERY 4 HOURS PRN, Starting on Mon04/14/21 at 1829, Until Mon04/18/21 at 1729, Pain, Routine Given 04/17/2021 18:15 EDT 0.5 mg Given 04/17/2021 8:37 EDT 0.5 mg Given 04/16/2021 23:01 EDT 0.5 mg morphine injection 2 mg 2 mg, intravenous, NOW X1, 1 dose, On Mon04/15/21 at 0145, Routine Given 04/15/2021 1:41 EDT 2 mg morphine injection 4 mg 4 mg, intravenous, NOW X1, 1 dose, On Mon04/14/21 at 1545, STAT Given 2021 15:48 EDT 4 mg ondansetron (PF) (ZOFRAN) 4 mg/2 mL injection 1 dose, Starting on Mon04/14/21 at 1724, Until Mon04/14/21 at 1727 ondansetron (PF) (ZOFRAN) injection 4 mg 4 mg, intravenous, NOW X1, 1 dose, On Mon04/14/21 at 1130, STAT Given 2021 11:44 EDT 4 mg ondansetron (PF) (ZOFRAN) injection 4 mg 4 mg, intravenous, EVERY 4 HOURS PRN, Starting on Mon04/14/21 at 1829, Until Mon04/18/21 at 1729, Nausea, Routine Given 04/17/2021 13:22 EDT 4 mg Given 04/15/2021 21:38 EDT 4 mg Given 04/15/2021 12:14 EDT 4 mg ondansetron (PF) (ZOFRAN) injection 4 mg 4 mg, intravenous, NOW X1, 1 dose, On Mon04/14/21 at 1730, STAT Given 2021 17:27 EDT 4 mg potassium chloride (KLOR-CON) packet 40 mEq 40 mEq, oral, EVERY 2 HOURS, 4 doses, First dose (after last modification) on Shirley 04/15/21 at 0615, Last dose on Shirley 04/15/21 at 1200, Routine Given 04/15/2021 7:26 EDT 40 mEq potassium chloride (KLOR-CON) packet 40 mEq 40 mEq, oral, EVERY 2 HOURS, 3 doses, First dose (after last reorder) on Shirley 04/15/21 at 1015, Last dose on Shirley 04/15/21 at 1400, Routine Given 04/15/2021 1 6:42 EDT 40 mEq Given 04/15/2021 12:14 EDT 40 mEq Given 04/15/2021 10:44 EDT 40 mEq potassium chloride in water infusion 20 mEq 20 mEq, intravenous, NOW X1, 1 dose, On Mon04/14/21 at 1200, STAT Given 2021 12:54 EDT 20 mEq potassium chloride in water infusion 20 mEq 20 mEq, intravenous, NOW X1, 1 dose, On Mon04/14/21 at 1445, STAT Given 2021 17:27 EDT 20 mEq potassium chloride SA (K-DUR) tablet 40 mEq 40 mEq, oral, EVERY 2 HOURS, 2 doses, First dose on Mon04/14/21 at 2015, Last dose on Mon04/14/21 at 2200, Routine Given 2021 23:27 EDT 40 mEq Given 2021 21:20 EDT 40 mEq potassium chloride SA (K-DUR) tablet 40 mEq 40 mEq, oral, EVERY 12 HOURS, 2 doses, First dose (after last modification) on Mon04/16/21 at 2100, Last dose on Mon04/17/21 at 0900, Routine Given 04/16/2021 20:17 EDT 40 mEq potassium, sodium phosphates (PHOS-NAK) 280-160-250 mg packet 16 mmol 16 mmol (2 Packet), oral, 2 TIMES DAILY, 3 doses, First dose on Mon04/15/21 at 2100, Last dose on Mon04/16/21 at 2100, Routine Given 04/15/2021 20:59 EDT 16 mmol potassium, sodium phosphates (PHOS-NAK) 280-160-250 mg packet 8 mmol 8 mmol (1 Packet), oral, 2 TIMES DAILY, First dose on Mon04/15/21 at 1400, Until Discontinued, Routine Given 04/15/2021 14:23 EDT 8 mmol potassium, sodium phosphates (PHOS-NAK) 280-160-250 mg packet 8 mmol 8 mmol (1 Packet), oral, 2 TIMES DAILY, 2 doses, First dose on Mon04/17/21 at 0900, Last dose on Mon04/17/21 at 2100, Routine Given 04/17/2021 21:24 EDT 8 mmol Given 04/17/2021 8:37 EDT 8 mmol predniSONE (DELTASONE) tablet 40 mg 40 mg, oral, DAILY, 3 doses, First dose on Mon04/16/21 at 1100, Last dose on Mon04/18/21 at 0900, Routine Given 04/18/2021 8:11 EDT 40 mg Given 04/17/2021 8:36 EDT 40 mg Given 04/16/2021 12:17 EDT 40 mg pregabalin (LYRICA) capsule 50 mg 50 mg, oral, 3 TIMES DAILY, First dose on Mon04/15/21 at 0900, Until Discontinued, Routine Given 04/18/2021 13:26 EDT 5 0 mg Given 04/18/2021 8:11 EDT 50 mg Given 04/17/2021 21:24 EDT 50 mg prochlorperazine edisylate (COMPAZINE) injection 10 mg 10 mg, intravenous, EVERY 6 HOURS PRN, Starting on Mon04/16/21 at 0954, Until Mon04/18/21 at 1729, Nausea, Routine Given 04/17/2021 18:15 EDT 10 mg Given 04/17/2021 8:37 EDT 10 mg Given 04/16/2021 23:00 EDT 10 mg ramelteon (ROZEREM) tablet 8 mg 8 mg, oral, AT BEDTIME PRN, Starting on Mon04/14/21 at 1612, Until Mon04/18/21 at 1729, Sleep, Routine Given 04/17/2021 21:25 EDT 8 mg Given 04/16/2021 20:17 EDT 8 mg Given 2021 23:27 EDT 8 mg thiamine (VITAMIN B-1) 100 mg in sodium chloride (NS) 0.9 % 50 mL IVPB 100 mg, intravenous, Administer over 15 Minutes, DAILY, First dose on Shirley 04/15/21 at 1045, Until Discontinued, Routine Given 04/17/2021 8:38 EDT 100 mg Given 04/16/2021 8:32 EDT 100 mg Given 04/15/2021 12:10 EDT 100 mg thiamine (VITAMIN B1) tablet 100 mg 100 mg, oral, DAILY, First dose on Mon04/18/21 at 0900, Until Discontinued, Routine Given 04/18/2021 8:10 EDT 100 mg vancomycin (VANCOCIN) capsule 125 mg 125 mg, oral, 4 TIMES DAILY, 28 doses, First dose (after last modification) on Mon04/16/21 at 1500, Last dose on Mon04/23/21 at 1200, Type of Therapy: Definitive, Based on Cultures, Suspected Indication (Select all that apply): Clostridioides difficile diarrhea, ID Consult: No, Routine Given 04/18/2021 12:00 EDT 125 mg Given 04/18/2021 8:10 EDT 125 mg Given 04/17/2021 21:25 EDT 125 mg documented in this encounter Discontinued Medications Medication Sig Discontinue Reason Start Date End Da te ketoconazole (NIZORAL) 2 % creamIndications:Rash Apply topically daily. Apply to affect area(s) as directed. 02/17/2010 04/18/2021 zafirlukast (ACCOLATE) 20 mg tablet Take 1 Tab by mouth 2 times daily. 06/05/2013 04/18/2021 ferrous gluconate (FERGON) 324 mg (38 mg iron) tablet Take 1 Tab by mouth 2 times daily with breakfast and dinner. 07/12/2013 04/18/2021 nabumetone (RELAFEN) 500 mg tablet Take 2 Tabs by mouth daily 2 tabs bid with food.. 04/18/2014 04/18/2021 polyethylene glycol (GLYCOLAX) 17 gram/dose powder Take 17 g by mouth daily. 10/20/2014 04/18/2021 documented as of this encounter Active and Recently Administered Medications Times are shown in EDT. Scheduled Medication Order 04/16/2021 04/17/2021 04/18/2021 acetaminophen (TYLENOL) tablet 1,000 mg 1,000 mg, oral, EVERY 6 HOURS, First dose (after last modification) on Mon04/14/21 at 1800, Until Discontinued, Routine 0001 (Given - Provider: Nan Hoyos RN)0530 (Given - Provider: Nan Hoyos RN)1216 (Given - Provider: Juanita Calles RN)1820 (Given - Provider: Juanita Calles RN) 0012 (Given - Provider: Janie Rueda RN)0536 (Given - Provider: Janie Rueda RN)1206 (Given - Provider: Lia Petty RN)1815 (Given - Provider: Lia Petty RN)2350 (Given - Provider: Janie Rueda RN) 0512 (Given - Provider: Janie Rueda RN)1200 (Given - Provider: Gregory Orlando RN) ampicillin (OMNIPEN) 1,000 mg in sodium chloride (NS MBP) 50 mL infusion 1,000 mg, intravenous, EVERY 6 HOURS, 20 doses, First dose on Mon04/16/21 at 1800, Last dose on Mon04/21/21 at 1200, Routine 1820 (Given - Provider: Juanita Calles RN) 0020 (Given - Provider: Janie Rueda RN)0536 (Given - Provider: Janie Rueda RN)1207 (Given - Provider: Lia Petty RN)1816 (Given - Provider: Lia Petty RN)2350 (Given - Provider: Janie Rueda RN) 0516 (Given - Provider: Janie Rueda RN)1201 (Given - Provider: Gregory Orlando RN) ampicillin-sulbactam (UNASYN) 3,000 mg in sodium chloride (NS MBP) 100 mL infusion (CANCELED) 3,000 mg (3 g), intravenous, Administer over 30 Minutes, EVERY 6 HOURS, 10 doses, First dose on Mon04/15/21 at 1830, Last dose on Mon04/18/21 at 0030, Type of Therapy: Empiric, Suspected Indication (Select all that apply): Other, Other Indication: Intra-abd infx, enterococcus UTI, ID Consult: No, Routine 0002 (Given - Provider: Nan Hoyos RN)0531 (Given - Provider: Nan Hoyos RN)1217 (Given - Provider: Juanita Calles, RON) hydrocortisone 2.5 % cream topical, 2 TIMES DAILY, First dose on Mon04/14/21 at 2100, Until Discontinued 0836 (Given - Provider: Juanita Calles RN)204 (Given - Provider: Janie Rueda RN) 0840 (Given - Provider: Lia Petty, RON)2220 (Given - Provider: Janie Rueda RN - Comment: Applied after pt toileted, request per pt preference.) 0812 (Given - Provider: Gregory Orlando RN) ipratropium-albuteroL (DUONEB) 0.5 mg-3 mg(2.5 mg base)/3 mL nebulizer solution 3 mL (COMPLETED) 3 mL, nebulization, 4 TIMES DAILY, 4 doses, First dose (after last modification) on Mon04/15/21 at 1200, Last dose on Mon04/16/21 at 0800, Routine 0912 (Given - Provider: Cira Frazier, RT) lactated ringers BOLUS 1,000 mL (COMPLETED) 1,000 mL, intravenous, NOW X1, 1 dose, On Mon04/16/21 at 1900, Routine 2256 (Given - Provider: Janie Rueda, RON) loratadine (CLARITIN) tablet 10 mg 10 mg, oral, DAILY, First dose on Mon04/15/21 at 0900, Until Discontinued, Routine 0832 (Given - Provider: Juanita Calles RN) 0837 (Given - Provider: Lia Petty, RON) 0811 (Given - Provider: Gregory Orlando, RON) LORazepam (ATIVAN) injection 1 mg (COMPLETED) 1 mg, intravenous, NOW X1, 1 dose, On Mon04/16/21 at 1015 1012 (Given - Provider: Juanita Calles RN) lovastatin (MEVACOR) tablet 20 mg 20 mg, oral, DAILY, First dose on Mon04/15/21 at 0900, Until Discontinued, Routine 0832 (Given - Provider: Juanita Calles RN) 0837 (Given - Provider: Lia Petty, RON) 0811 (Given - Provider: Gregory Orlando, RON) magnesium sulfate 2 g in water 50 mL (COMPLETED) 2 g, intravenous, Administer over 30 Minutes, NOW X1, 1 dose, On Mon04/16/21 at 1900, Routine 2303 (Given - Provider: Janie Rueda RN - Comment: Pt required two new PIV access.) mometasone-formoterol (DULERA) 100-5 mcg/actuation inhaler 2 Puff 2 Puff, inhalation, 2 TIMES DAILY, First dose on Mon04/14/21 at 2100, Until Discontinued 08 (Given - Provider: Juanita Calles RN)2020 (Given - Provider: Janie Rueda RN) 08 (Given - Provider: Lia Petty, RON)2126 (Given - Provider: Janie Rueda, RON) 08 (Given - Provider: Gregory Orlando, RON) potassium chloride SA (K-DUR) tablet 40 mEq (CANCELED)(Linked Group 1) 40 mEq, oral, EVERY 12 HOURS, 2 doses, First dose (after last modification) on Mon04/16/21 at 2100, Last dose on Mon04/17/21 at 0900, Routine 2017 (Given - Provider: Janie Rueda RN) 0838 (See Alternative - Provider: Lia Petty RN) potassium, sodium phosphates (PHOS-NAK) 280-160-250 mg packet 8 mmol (COMPLETED) 8 mmol (1 Packet), oral, 2 TIMES DAILY, 2 doses, First dose on Mon04/17/21 at 0900, Last dose on Mon04/17/21 at 2100, Routine 0837 (Given - Provider: Lia Petty RN)2124 (Given - Provider: Janie Rueda RN) predniSONE (DELTASONE) tablet 40 mg (COMPLETED) 40 mg, oral, DAILY, 3 doses, First dose on Mon04/16/21 at 1100, Last dose on Mon04/18/21 at 0900, Routine 1217 (Given - Provider: Juanita Calles RN) 0836 (Given - Provider: Lia Petty RN) 0811 (Given - Provider: Gregory Orlando RN) pregabalin (LYRICA) capsule 50 mg 50 mg, oral, 3 TIMES DAILY, First dose on [place] 04/15/21 at 0900, Until Discontinued, Routine 0832 (Given - Provider: Juanita Calles RN)1454 (Given - Provider: Juanita Calles RN)2017 (Given - Provider: Janie Rueda RN) 0837 (Given - Provider: Lia Petty RN)1322 (Given - Provider: Lia Petty RN)2124 (Given - Provider: Janie Rueda RN) 0811 (Given - Provider: Gregory Orlando RN)1326 (Given - Provider: Gregory Orlando RN) thiamine (VITAMIN B-1) 100 mg in sodium chloride (NS) 0.9 % 50 mL IVPB (CANCELED) 100 mg, intravenous, Administer over 15 Minutes, DAILY, First dose on [place] 04/15/21 at 1045, Until Discontinued, Routine 0832 (Given - Provider: Juanita Calles RN) 0838 (Given - Provider: Lia Petty RN) thiamine (VITAMIN B1) tablet 100 mg 100 mg, oral, DAILY, First dose on Mon04/18/21 at 0900, Until Discontinued, Routine 0810 (Given - Provider: Gregory Orlando RN) vancomycin (VANCOCIN) capsule 125 mg 125 mg, oral, 4 TIMES DAILY, 28 doses, First dose (after last modification) on Mon04/16/21 at 1500, Last dose on Mon04/23/21 at 1200, Type of Therapy: Definitive, Based on Cultures, Suspected Indication (Select all that apply): Clostridioides difficile diarrhea, ID Consult: No, Routine 1454 (Given - Provider: Juanita Jelani, RN)2017 (Given - Provider: Janie Rueda RN) 0837 (Given - Provider: Lia Petty, RN)1206 (Given - Provider: Lia Petty RN)1815 (Given - Provider: Lia Petty RN)2125 (Given - Provider: Janie Rueda RN) 0810 (Given - Provider: Gregory Orlando RN)1200 (Given - Provider: Gregory Orlando RN)1700 (Canceled Entry - Provider: Batch Job User Admin - Comment: Automatically canceled at discontinue of medication order) PRN Medication Order 04/16/2021 04/17/2021 04/18/2021 albuterol (ACCUNEB) nebulizer solution 2.5 mg 2.5 mg, nebulization, EVERY 4 HOURS PRN, Starting on Mon04/14/21 at 1612, Until 04/18/21 at 1729, Wheezing, Routine albuterol inhaler 180 mcg 180 mcg (2 Puff), inhalation, EVERY 4 HOURS PRN, Starting on Shirley 04/15/21 at 1000, Until 04/18/21 at 1729, Wheezing, Routine 0836 (Given - Provider: Juanita Calles RN) lidocaine (PF) 10 mg/mL (1 %) injection 2 mg 2 mg, intradermal, PRN, 4 doses, Starting on Mon04/14/21 at 1612, Until 04/18/21 at 1729, peripheral intravenous catheter placement, Routine morphine injection 0.5 mg 0.5 mg, intravenous, EVERY 4 HOURS PRN, Starting on Mon04/14/21 at 1829, Until 04/18/21 at 1729, Pain, Routine 0538 (Given - Provider: Nan Hoyos RN)0950 (Given - Provider: Juanita Calles RN)2301 (Given - Provider: Janie Rueda RN) 0837 (Given - Provider: Lia Petty RN)181 (Given - Provider: Lia Petty RN) ondansetron (PF) (ZOFRAN) injection 4 mg 4 mg, intravenous, EVERY 4 HOURS PRN, Starting on Mon04/14/21 at 1829, Until 04/18/21 at 1729, Nausea, Routine 1322 (Given - Provider: Lia Petty, RON) prochlorperazine edisylate (COMPAZINE) injection 10 mg 10 mg, intravenous, EVERY 6 HOURS PRN, Starting on Mon04/16/21 at 0954, Until 04/18/21 at 1729, Nausea, Routine 1013 (Given - Provider: Juanita Calles, RN)2300 (Given - Provider: Janie Rueda, RON) 0837 (Given - Provider: Lia Petty, RON)1815 (Given - Provider: Lia Petty, RON) ramelteon (ROZEREM) tablet 8 mg 8 mg, oral, AT BEDTIME PRN, Starting on Mon04/14/21 at 1612, Until Mon04/18/21 at 1729, Sleep, Routine 2017 (Given - Provider: Janie Rueda, RON) 2125 (Given - Provider: Janie Rueda RN) Linked Groups Order Group 1: potassium chloride (KLOR-CON) packet 40 mEq (CANCELED) 40 mEq, oral, EVERY 12 HOURS, 2 doses, First dose (after last modification) on Mon04/16/21 at 2100, Last dose on Mon04/17/21 at 0900, Routine Or potassium chloride SA (K-DUR) tablet 40 mEq (CANCELED)Jump to med 40 mEq, oral, EVERY 12 HOURS, 2 doses, First dose (after last modification) on Mon04/16/21 at 2100, Last dose on Mon04/17/21 at 0900, Routine documented in this encounter Orders Medications Ordered That Max ht Not Have Been Administered Count Last Ordered Date First Ordered Date diphenhydrAMINE (BENADRYL) capsule 25 mg 1 04/17/2021 ketOROLAC (TORADOL) injection 15 mg 1 04/17 prochlorperazine edisylate ( COMPAZINE) injection 10 mg 1 04/17/2021 potassium chloride (KLOR-CON ) packet 40 mEq 4 04/16/2021 2021 potassium chloride SA (K-DUR ) tablet 40 mEq 4 04/16/2021 04/15/2021 vancomycin (VANCOCIN) capsule 125 mg 1 03/30 ampicillin-sulbactam (UNASYN ) 3,000 mg in sodium chloride (NS MBP) 100 mL infusion 1 04/15/2021 iohexoL (OMNIPAQUE 350) solution 100 mL 1 0 04/15/2021 lactated ringers (LR) infusion 1 04/15/2021 lactated ringers BOLUS 1,000 mL 1 magnesium sulfate 2 g in water 50 mL 1 03/30 morphine injection 2 mg 1 04/15/2021 morphine injection 4 mg 1 04/15/2021 ondansetron (PF) (ZOFRAN) injection 2 mg 1 04/15/2021 ondansetron (PF) (ZOFRAN) injection 4 mg 2 04/15/2021 potassium chloride in water infusion 20 mEq 2 04/15/2021 acetaminophen (TYLENOL) tablet 650 mg 1 albuterol (ACCUNEB) nebulize r solution 2.5 mg 1 2021 dextrose 50 % solution 12.5 g 1 2021 glucagon injection 1 mg 1 2021 insulin aspart U-100 (NOVOLO G FLEXPEN) injection 1 2021 ipratropium-albuteroL (DUONE B) 0.5 mg-3 mg(2.5 mg base)/3 mL nebulizer solution 3 mL 2 2021 lidocaine (PF) 10 mg/mL (1 % ) injection 2 mg 1 2021 Diet Count Last Ordered Date First Orde red Date DISCHARGE DIET 1 04/18/2021 Nursing Count Last Ordered Date First Orde red Date ACTIVITY INSTRUCTIONS 1 04/18/2021 BATHING INSTRUCTIONS 1 04/18/2021 DRIVING INSTRUCTIONS 1 04/18/2021 Respiratory Care Count Last Ordered Date First Ordered Date DRY POWDERED OR METERED DOSE INHALER 1 03/30 NEBULIZER TX INTERMITTENT 3 04/15/2021 IV Count Last Ordered Date First Orde red Date IV REQUEST 3 04/16/2021 04/15/2021 Admission Count Last Ordered Date First Orde red Date ADMIT TO INPATIENT 1 04/15/2021 INITIATE OBSERVATION STATUS 1 2021 Transfer Count Last Ordered Date First Orde red Date ED BED REQUEST 1 2021 Discharge Count Last Ordered Date First Orde red Date DISCHARGE PATIENT 1 04/18/2021 Legal Count Last Ordered Date First Orde red Date MISCELLANEOUS DISCHARGE INSTRUCTIONS 1 03/31 Equipment Count Last Ordered Date First Orde red Date GENERIC DME ORDER 1 04/18/2021 documented in this encounter Additional Health Concerns Infection Onset Date Last Indicated Resolved Time Rule-Out C. difficile 2021 04/16/20212020 13:40 EDT C. difficile 04/16/2021 04/16/2021 06/15/2021 22:1 5 EDT documented as of this encounter Care Teams Granite Countertop Installer Relationship Specialty Start Date End Date German Garzon PA-C [address] [place] [address] PCP - General 09/28/18 05/29/22 documented as of this encounter
--- OUTSIDE RECORDS SUMMARY | 2024-06-24 02:16 | XMS_ITS | Encounter Summary ---
Author Organization [facility] Address [address] [place] [address] Care Team Providers Care Receptionist Clerk Name Role Phone Unavailable Primary Care Provider Unavailabl e Encounter Details Date Type Department Care Team (Latest Contact Info) Description 09/24/2018 Travel Social History Tobacco Use Types Packs/Day [...]
--- OUTSIDE RECORDS SUMMARY | 2024-06-24 02:17 | XMS_ITS | Encounter Summary ---
Author Organization [facility] Address [address] [place] [address] Care Team Providers Care Tube Inspector Name Role Phone Remedios Mehta MD Primary Care Provider [phone] Reason for Visit * Reason Onset Date Comments Paperwork request 12/19/2013 Encounter Details Date Type Department Care Team (Late st Contact Info) Description 12/19/[address] [address] Remedios Mehta MD [address] [place] [phone] Paperwork request Social History Tobacco Use Types [...] Telephone Encounter - Emily Gibson LPN - 12/19/2013 1417 EST Paper work placed in Dr strickland's folder to be signed * Telephone Encounter - Brook Schroeder - 12/19/2013 1053 EST Patient dropped off Essential Person Functional Assessment form to be completed by Dr. Strickland and mailed out in included envelope. Noticed after patient left there is no address listed to mail form to, patient will be calling office back with an address and was asked to leave the message for me (Brook Bess). Placed in [facility] folder and will place post-it note with address once received. documented in this encounter Plan of Treatment Not on file documented as of this encounter Visit Diagnoses Not on filedocumented in this encounter Care Teams Tube Inspector Relationship Specialty Start Date End Date Remedios Mehta MD [address] [place] [phone] PCP - General 02/19/09 01/04/15 documented as of this encounter
--- OUTSIDE RECORDS SUMMARY | 2024-06-24 02:17 | XMS_ITS | Encounter Summary ---
Author Organization [facility] Address [address] [place] [address] Care Team Providers Care Research Specialist Name Role Phone Remedios Mehta MD Primary Care Provider [phone] Reason for Visit * Reason Comments Other Encounter Details Date Type Department Care Team (Late st Contact Info) Description 01/16/[address] [address] Remedios Mehta MD [address] [place] [phone] Other Social History Tobacco Use Types [...] on filedocumented in this encounter Care Teams Research Specialist Relationship Specialty Start Date End Date Remedios Mehta MD [address] [place] [phone] PCP - General 02/19/09 01/04/15 documented as of this encounter
--- OUTSIDE RECORDS SUMMARY | 2024-06-24 02:17 | XMS_ITS | Encounter Summary ---
Author Organization [facility] Address [address] [place] [address] Care Team Providers Care Special Effects Person Name Role Phone Remedios Mehta MD Primary Care Provider [phone] Reason for Visit * Reason Onset Date Comments Medication Questions 01/10/2014 Encounter Details Date Type Department Care Team (Late st Contact Info) Description 01/10/2014 Telephone [facility] Interventional Pain [address] [place], [place] [id number] Abundio Tubbs, DO [address] [facility] [address] [place], [place] [address] Medication Questions Social History Tobacco Use Types Packs/Day Years [...] Dispensed Refills Start Date End Da te nabumetone (RELAFEN) 500 mg tablet Take 2 Tabs by mouth daily 2 tabs bid with food.. 60 Tab 2 01/10/2014 04/18/2014 documented in this encounter Miscellaneous Notes * Telephone Encounter - Samra Byrne RN - 01/10/2014 1238 EDT RN called pharmacy and they would like clarification on nabumetone RX. Dr Tubbs consulted. Per Suly 2 tabs QD c food. RN called pharmacy with corrected sig. * Telephone Encounter - Jaimee Schroeder - 01/10/2014 1233 EDT Please call [facility] about Nabumetone 500mg Please verify instructions documented in this encounter Plan of Treatment Not on file documented as of this encounter Visit Diagnoses Not on filedocumented in this encounter Discontinued Medications Medication Sig Discontinue Reason Start Date End Da te nabumetone (RELAFEN) 500 mg tablet Take 2 Tabs by mouth daily 2 tabs bid with food.. Error 01/10/2014 01/10/2014 documented as of this encounter Care Teams Special Effects Person Relationship Specialty Start Date End Date Remedios Mehta MD [address] [place] [phone] PCP - General 02/19/09 01/04/15 documented as of this encounter
--- OUTSIDE RECORDS SUMMARY | 2024-06-24 02:17 | XMS_ITS | Encounter Summary ---
Author Organization [facility] Address [address] [place] [address] Care Team Providers Care Emergency Man Name Role Phone Remedios Mehta MD Primary Care Provider [phone] Reason for Visit * Reason Onset Date Comments Medications Refill 02/17/2014 Encounter Details Date Type Department Care Team (Late st Contact Info) Description 02/17/[address] [address] Remedios Mehta MD [address] [place] [phone] Medications Refill Social History Tobacco Use [...] Dispensed Refills Start Date End Da te HYDROcodone-acetaminophen (NORCO) 10-325 mg tabletIndications:Pain of right leg,Cervical spondylosis without myelopathy,Arthropathy,Fib romyalgia Take 1 Tab by mouth every 6 hours as needed for Pain. 116 Tab 1 02/17/2014 04/18/2014 documented in this encounter Miscellaneous Notes * Telephone Encounter - Brook Weathers - 02/18/2014 0732 EDT Hydrocodone phoned in. Spoke to patient. * Telephone Encounter - Aleah Riley MD - 02/17/2014 1627 EDT VPMS review shows appropriate usage with single provider and single pharmacy. Refill request is a appropriate. Aleah Riley MD * Telephone Encounter - Harjit Buckner - 02/17/2014 1326 EDT Chart reviewed. Pt last rx'd norco 10-325 #116 with one refill, 1 tab every 6 hrs PRN on 12/19/13. Taking as ordered was due to run out on 02/13/14. She will be running out today. She is next scheduledto see Dr. Strong 03/17. Routed to doc of . Harjit Buckner RN * Telephone Encounter - Kaylynn Philippe - 02/17/2014 1221 EDT Medication(s) Requested: HYDROcodone-acetaminophen (NORCO) 10-325 mg tablet [facility]acy: [facility] Last Refill Date: 12/19/13 # 116 1 refill Last Visit Date: 12/23/13 Next Visit Date: 02/17/2014 Is patient out of medication? Yes - patient is asking for refill by 2:00 pm today. Patient informed that request would be put through but cannot promise today; Patient apologizes forthe late request.. Patient provided, for future reference, with the request to have meds called in a minimum of 3 daysbefore they are due. Kaylynn Philippe 02/17/2014 12:21 documented in this encounter Plan of Treatment Not on file documented as of this encounter Visit Diagnoses Diagnosis Pain of right leg- Primary Pain in limb Cervical spondylosis without myelopathy Arthropathy Arthropathy, unspecified, site unspecified Fibromyalgia Mylagia and myositis, unspecified documented in this encounter Discontinued Medications Medication Sig Discontinue Reason Start Date End Da te HYDROcodone-acetaminophen (NORCO) 10-325 mg tabletIndications:Pain of right leg,Cervical spondylosis without myelopathy,Arthropathy,Fi bromyalgia Take 1 Tab by mouth every 6 hours as needed for Pain. Reorder 12/18/2013 02/17/2014 documented as of this encounter Care Teams Emergency Man Relationship Specialty Start Date End Date Remedios Mehta MD [address] [place] [phone] PCP - General 02/19/09 01/04/15 documented as of this encounter
--- OUTSIDE RECORDS SUMMARY | 2024-06-24 02:17 | XMS_ITS | Encounter Summary ---
Author Organization [facility] Address [address] [place] [address] Care Team Providers Care Bead Flipper Name Role Phone Remedios Mehta MD Primary Care Provider [phone] Encounter Details Date Type Department Care Team (Late st Contact Info) Description 01/27/2014 11:00 EDT Community Health Team [address] [place] [address] [id number] [facility], [facility] Social History Tobacco Use Types Packs/Day Years [...] as of this encounter Progress Notes * Yaneth Alberts, RD - 01/27/2014 1509 EDT Nutrition consult completed 01/27/14 Initial assessment Cherelle was originally referred for nutrition education to improve cholesterol. Pt was seen today withher partner who is responsible for preparing the meals. Pt expressed interest in working towards weight loss and learning more about the gluten free diet. Pt states that she doesn't always eat enoughand will often skip meals. Pt reports walking almost daily for at least 30 minutes. 24- hour recall Breakfast: bahamian muffin with peanut butter and orange juice Lunch: skips Dinner: lean protein/ starch and vegetables Pertinent labs, medical history and medications reviewed. Lab Results Component Value Date CHOL 261 12/17/2013 CHOL 217 07/12/2013 CHOL 207 01/23/2013 HDL 38 12/17/2013 HDL 37 07/12/2013 HDL 52 01/23/2013 LDLBASE 179 12/17/2013 LDLBASE 148 07/12/2013 LDLBASE 125 01/23/2013 TRIG 220 12/17/2013 TRIG 161 07/12/2013 TRIG 152 01/23/2013 CHOLHDL 6.9 12/17/2013 CHOLHDL 5.9 07/12/2013 CHOLHDL 4.0 01/23/2013 Pt currently taking a daily multivitamin, vitamin D3 with calcium and an iron supplement. Advised pt on label reading to successfully consume a gluten free diet. Advised pt on importance of eating regularly throughout the day and to meet the minimum daily energy requirements. Discussed the benefit of physical activity in achieving goals around health and wellness, encouraged pt to continue with current physical activity and to increase as able without causing pain. Provided pt on information relating to creating or planning for more balanced meals and offered light lunch options that would beeasy. Goals: 1. Eat lunch every day of the week. 2. Increase fruit and vegetable intake 3. Log foods Time spent with pt: 60 minutes Referrals: n/a Follow-up: 02/17/14 @ [facility] @ 2pm CHT Status: active with [facility] lakeshia Alberts RD, CD Clinical Dietitian, CHT documented in this encounter Plan of Treatment Not on file documented as of this encounter Visit Diagnoses Not on filedocumented in this encounter Care Teams Bead Flipper Relationship Specialty Start Date End Date Remedios Mehta MD [address] [place] [phone] PCP - General 02/19/09 01/04/15 documented as of this encounter
--- OUTSIDE RECORDS SUMMARY | 2024-06-24 02:17 | XMS_ITS | Encounter Summary ---
Author Organization [facility] Address [address] [place] [address] Care Team Providers Care Manager Convention Name Role Phone Remedios Mehta MD Primary Care Provider [phone] None, Provider Primary Care Provider German PabonC Primary Care Provider [phone] Elly Ling NP Primary Care Provider [phone] Reason for Visit * Reason Comments Other Encounter Details Date Type Department Care Team (Late st Contact Info) Description 03/21/[address] [address] Remedios Mehta MD [address] [place] [phone] Other Social History Tobacco Use Types [...] encounter Miscellaneous Notes * Telephone Encounter - Nadia Keith RN - 03/21/2014 0851 EDT Refill for glycolax refused Pt should have refills at pharmacy documented in this encounter Plan of Treatment [...] documented as of this encounter Care Teams Manager Convention Relationship Specialty Start Date End Date Remedios Mehta MD [address] [place] [phone] PCP - General 02/19/09 01/04/15 None, Provider PCP - General 01/05/15 09/23/18 German Garzon PA-C [address] [place] [address] PCP - General 09/28/18 05/29/22 Elly Ling NP [address] [place] [address] PCP - General Family Medicine - Primary Care 05/30/22 documented as of this encounter
--- OUTSIDE RECORDS SUMMARY | 2024-06-24 02:17 | XMS_ITS | Encounter Summary ---
Author Organization [facility] Address [address] [place] [address] Care Team Providers Care Traffic Analyst Name Role Phone Remedios Mehta MD Primary Care Provider [phone] Reason for Visit * Reason Onset Date Comments Medications Refill 11/20/2013 Encounter Details Date Type Department Care Team (Late st Contact Info) Description 11/20/[address] [address] Remedios Mehta MD [address] [place] [phone] Medications Refill Social History Tobacco Use [...] Telephone Encounter - Nadia Keith RN - 11/20/2013 1557 EST Lovastatin written in jun 2013 for >1yr supply Refill request for lovastatin refused Should be refills at pharmacy * Telephone Encounter - Jaz De Leon - 11/20/2013 1533 EST Medication(s) Requested: Lovastatin 10 mg takes one daily;dispense;90;rf;4 [facility] Last Refill Date: 07.12.13 Last Visit Date: 09.13.13 Next Visit Date: 12/17/2013 Is patient out of medication? yes Jaz De Leon 11/20/2013 15:34 documented in this encounter Plan of Treatment Not on file documented as of this encounter Visit Diagnoses Diagnosis Hyperlipidemia- Primary Other and unspecified hyperlipidemia documented in this encounter Care Teams Traffic Analyst Relationship Specialty Start Date End Date Remedios Mehta MD [address] [place] [phone] PCP - General 02/19/09 01/04/15 documented as of this encounter
--- OUTSIDE RECORDS SUMMARY | 2024-06-24 02:17 | XMS_ITS | Encounter Summary ---
Author Organization [facility] Address [address] [place] [address] Care Team Providers Care Wool Merchant Name Role Phone Remedios Mehta MD Primary Care Provider [phone] Encounter Details Date Type Department Care Team (Latest Contact Info) Description 02/04/2014 7:36 EDT - 02/04/2014 23:59 EDT Hospital Encounter [facility] [address] [place] [address] Abundio Tubbs, DO [address] [place] [address] [address] [place] [address] Discharge Disposition: Auto Discharge Social History Tobacco Use Types Packs/Day Years [...] as of this encounter Discharge Diagnoses Diagnosis 724.2 LUMBAGO[ICD-9-CM] documented in this encounter Medications at Time of Discharge Medication Sig Dispensed Refills Start Date End Date albuterol (PROVENTIL HFA, VENTOLIN HFA) 90 mcg/actuation inhaler Inhale 2 Puffs as directed every 4 hours. 1 Inhaler 1 08/25/2012 albuterol (PROVENTIL) 2.5 mg /3 mL (0.083 %) nebulizer solution Take 3 mL by nebulization every 4 hours as needed for Wheezing. 1 Box 1 08/25/2012 budesonide-formoterol HFA (SYMBICORT) 80-4.5 mcg/actuation HFA Aerosol Inhaler inhalerIndications:Asth ma,Hyperlipidemia,Need for Tdap vaccination,Abdominal discomfort,IBS (irritable bowel syndrome),GERD [...] 3 06/05/2013 fluticasone (FLONASE) 50 mcg/actuation nasal sprayIndications:Asthma ,Hyperlipidemia,Need for Tdap vaccination,Abdominal discomfort,IBS (irritable bowel syndrome),GERD (gastroesophageal reflux disease) Instill 1 [place] into both nostrils daily. 1 Bottle 5 06/05/2013 loratadine (CLARITIN) 10 mg tablet Take 1 Tab by mouth daily. 90 Tab 1 08/21/2013 lovastatin (MEVACOR) 20 mg tabletIndications:Hyper lipidemia Take 1 Tab by mouth daily. 90 Tab 4 12/23/2013 lubiprostone (AMITIZA) 24 mcg capsule Take 24 mcg by mouth as needed. 09/27/2010 MULTIVITAMINS (MULTIVITAMIN ORAL) Take 1 Tab by mouth daily. acetaminophen (TYLENOL) 325 mg tablet Take 2 Tabs by mouth every 6 hours as needed for Pain. 06/14/2013 03/17/2014 CYMBALTA 60 mg capsule TAKE ONE CAPSULE BY MOUTH EVERY DAY 90 Cap 3 10/15/2013 09/24/2018 ferrous gluconate (FERGON) 324 mg (38 mg iron) tablet Take 1 Tab by mouth 2 times daily with breakfast and dinner. 60 Tab 4 07/12/2013 04/18/2021 HYDROcodone-acetaminoph en (NORCO) 10-325 mg tabletIndications:Pain of right leg,Cervical spondylosis without myelopathy,Arthropathy, Fibromyalgia Take 1 Tab by mouth every 6 hours as needed for Pain. 116 Tab 1 12/18/2013 02/17/2014 ketoconazole (NIZORAL) 2 % creamIndications:Rash Apply topically daily. Apply to affect area(s) as directed. 1 Tube 1 02/17/2010 04/18/2021 meloxicam (MOBIC) 7.5 mg tablet Take 1 Tab by mouth daily. 30 Tab 5 01/14/2014 03/06/2014 metoprolol (LOPRESSOR) 25 mg tabletIndications:Hyper tension Take 1 Tab by mouth 2 times daily. 180 Tab 4 06/05/2013 09/24/2018 nabumetone (RELAFEN) 500 mg tablet Take 2 Tabs by mouth daily 2 tabs bid with food.. 60 Tab 2 01/10/2014 04/18/2014 omeprazole (PRILOSEC) 20 mg capsuleIndications:GERD (gastroesophageal reflux disease),Cough Take 1 Cap by mouth 2 times daily. 60 Cap 5 12/20/2013 09/24/2018 ondansetron (ZOFRAN-ODT) 4 mg disintegrating tablet Take 1 Tab by mouth every 6 hours as needed for Nausea. 12 Tab 0 06/14/2013 09/24/2018 polyethylene glycol (GLYCOLAX) 17 gram/dose powderIndications:IC (irritable colon) Take 17 g by mouth daily. 1 Bottle 3 12/23/2013 10/17/2014 pregabalin (LYRICA) 50 mg capsule Take 1 Cap by mouth 2 times daily. 60 Cap 5 12/17/2013 03/06/2014 traZODone (DESYREL) 100 mg tablet Take 1-2 Tabs by mouth at bedtime as needed for Sleep. 56 Tab 3 01/13/2014 05/10/2014 zafirlukast (ACCOLATE) 20 mg tablet Take 1 Tab by mouth 2 times daily. 180 Tab 5 06/05/2013 04/18/2021 documented as of this encounter Discharge Disposition Disposition Code Departure Means Destination Auto Discharge Home documented in this encounter Plan of Treatment Not on file documented as of this encounter Procedures Procedure Name Priority Date/Time Associated Diagnosis Comments NM BONE WHOLE BODY WITH SPECT 02/05/2014 14:19 EDT NM INJECTION NO CHARGE 02/05/2014 8:55 EDT documented in this encounter Results * NM BONE WHOLE BODY WITH SPECT (02/05/2014 14:19 EDT) Anatomical Region Laterality Modality Other 02/05/2014 14:1 9 EDT 02/05/2014 17:03 EDT Narrative 02/05/2014 17:03 EDT Addendum Begins Patient returned the following day for additional images to include the entire body and SPECT CT of the upper chest. Additional 10 mCi of technetium 99m MDP was injected intravenously. Findings: Mild increased bone tracer uptake is identified associate with the osteophytes and discogenic endplate disease and upper thoracic spine, C6 and C7 level. Mild increased bone tracer uptake cells identified associated with the facet joint T1-T2 on the right. Calcified pulmonary granulomas are identified. Whole-body images demonstrate also increased bone tracer uptake in the left knee most likely due to to arthrosis. Patient status post total right knee arthroplasty. Tracer uptake around the right knee prosthesis remains within normal limits. Periarticular uptake in both wrists, feet is also likely related to arthrosis. There is increased bone tracer uptake identified within the 3rd rib which involves its lateral 4 cm in length segment. The low resolution CT obtained as part of the SPECT CT does not clearly reveal the etiology of this abnormality. No discrete rib fracture, healing rib fractures are demonstrated. Subtle added the sclerosis of this portion of the rib is seen on the CT. Given the history of prior malignancy further assessment with diagnostic CT or MRI should be obtained. Considerations include atypical healing longitudinal rib fracture, fibrous dysplasia as well as a metastatic lesion. Addendum Ends NM BONE SPECT ??02/04/2014 1:08 PM Signs and Symptoms/Comments: ?? 721.3-Lumbosacral spondylosis without tmkcmhedgm-YAL-0-CM 724.8-Flntdaj-BNV-9-CM; low back pain, localize origin. Technique: Ehz-azy-wkq-half hours after the IV injection of 18.8mCi Tc-99m MDP, planar and SPECT/CT images were obtained of lumbosacral spine. In addition planar images were obtained of the cervical spine in anterior and posterior projections. The radioisotope injection was performed in the right hand. Findings: ?? Planar and SPECT images of the lumbar spine demonstrate intense increased bone tracer uptake associated with the left-sided facet arthrosis L3-L4. Mild increased bone tracer uptake is seen on the contralateral side in the same level. No other areas of increased bone tracer uptake are identified in the lumbosacral spine. Planar images of the cervical spine demonstrate increased bone tracer uptake in the lower cervical spine. There is also a focus of increased bone tracer uptake in the lateral aspect of the left 2nd or 3rd rib laterally. There are no recent comparison radiographs to assess this area. Mild increased bone tracer uptake is seen in both shoulders. Impression: Facet arthrosis L3-L4 with increased bone tracer uptake mostly involving the left side. Incidental focus of increased bone tracer uptake in the lateral left 2nd or 3rd rib. The most common etiology of incidental uptake in the rib would be of healing fracture, however radiographic correlation should be considered to confirm. Increased bone tracer uptake in the lower cervical spine, likely related to degenerative spondylosis. Procedure Note 02/05/2014 Addendum Begins Patient returned the following day for additional images to include the entire body and SPECT CT of the upper chest. Additional 10 mCi of technetium 99m MDP was injected intravenously. Findings: Mild increased bone tracer uptake is identified associate with the osteophytes and discogenic endplate disease and upper thoracic spine, C6 and C7 level. Mild increased bone tracer uptake cells identified associated with the facet joint T1-T2 on the right. Calcified pulmonary granulomas are identified. Whole-body images demonstrate also increased bone tracer uptake in the left knee most likely due to to arthrosis. Patient status post total right knee arthroplasty. Tracer uptake around the right knee prosthesis remains within normal limits. Periarticular uptake in both wrists, feet is also likely related to arthrosis. There is increased bone tracer uptake identified within the 3rd rib which involves its lateral 4 cm in length segment. The low resolution CT obtained as part of the SPECT CT does not clearly reveal the etiology of this abnormality. No discrete rib fracture, healing rib fractures are demonstrated. Subtle added the sclerosis of this portion of the rib is seen on the CT. Given the history of prior malignancy further assessment with diagnostic CT or MRI should be obtained. Considerations include atypical healing longitudinal rib fracture, fibrous dysplasia as well as a metastatic lesion. Addendum Ends NM BONE SPECT 02/04/2014 1:08 PM Signs and Symptoms/Comments: 721.3-Lumbosacral spondylosis without crlbapfgyl-PUY-3-CM 724.1-Xoynkyw-ZLP-9-CM; low back pain, localize origin. Technique: Sip-xup-kxj-half hours after the IV injection of 18.8mCi Tc-99m MDP, planar and SPECT/CT images were obtained of lumbosacral spine. In addition planar images were obtained of the cervical spine in anterior and posterior projections. The radioisotope injection was performed in the right hand. Findings: Planar and SPECT images of the lumbar spine demonstrate intense increased bone tracer uptake associated with the left-sided facet arthrosis L3-L4. Mild increased bone tracer uptake is seen on the contralateral side in the same level. No other areas of increased bone tracer uptake are identified in the lumbosacral spine. Planar images of the cervical spine demonstrate increased bone tracer uptake in the lower cervical spine. There is also a focus of increased bone tracer uptake in the lateral aspect of the left 2nd or 3rd rib laterally. There are no recent comparison radiographs to assess this area. Mild increased bone tracer uptake is seen in both shoulders. Impression: Facet arthrosis L3-L4 with increased bone tracer uptake mostly involving the left side. Incidental focus of increased bone tracer uptake in the lateral left 2nd or 3rd rib. The most common etiology of incidental uptake in the rib would be of healing fracture, however radiographic correlation should be considered to confirm. Increased bone tracer uptake in the lower cervical spine, likely related to degenerative spondylosis. Abundio CHILDERS NM ORDERABLES * NM INJECTION NO CHARGE (02/05/2014 8:55 EDT) Anatomical Region Laterality Modality Other 02/05/2014 8:55 EDT Narrative 02/05/2014 8:55 EDT Non Reportable Exam Procedure Note 02/05/2014 Non Reportable Exam Abundio Tubbs DO IMG NM ORDERABLES documented in this encounter Visit Diagnoses Not on filedocumented in this encounter Care Teams Wool Merchant Relationship Specialty Start Date End Date Remedios Mehta MD [address] [place] [phone] PCP - General 02/19/09 01/04/15 documented as of this encounter
--- OUTSIDE RECORDS SUMMARY | 2024-06-24 02:17 | XMS_ITS | Encounter Summary ---
Author Organization [facility] Address [address] [place] [address] Care Team Providers Care Repairer Evaporator Name Role Phone Remedios Mehta MD Primary Care Provider + [phone] Encounter Details Date Type Department Care Team (Late st Contact Info) Description 02/18/2014 Community Health Team [address] [place] [address] Social History Tobacco Use Types [...] of this encounter Progress Notes * Yaneth Alberts RD - 02/18/2014 1227 EDT Nutrition follow up (2) completed 02/17/14 Cherelle was seen for weight loss. Pt was seen with her partner. Pt was not able to log foods because did not know how to use my fitness pal. Pt reports that with the warmer weather she has been trying to get out and participate in more activity. Pt reports that she has also been successful at increasing meal frequency. Partner works to remind her when to eat. Pt with additional questions on label reading. Pertinent labs and medical history reviewed. Pt weight today was 214#. Advised pt on label reading to control intake of sodium, carbohydrates and calories. Assisted pt in creating a profile on my fitness pal and entered foods already consumed to show how the program works. Recommend 1300 calories/day. Encouraged pt to continue with increase in physical activity as able. Pt expressed interest in water therapies. Completed referral for [facility] [place]. Goals: 1. Log foods aiming for 1300 calories/day 2. Increase physical activity by going to [facility] [place] Time spent with pt: Referrals: [facility] [place] Follow-up: 03/31/14 @ [facility] @ 1pm [facility] Status: Active with [facility] DOMINICK Alberts RD, CD Clinical Dietitian, [facility] documented in this encounter Plan of Treatment Not on file documented as of this encounter Visit Diagnoses Not on filedocumented in this encounter Care Teams Repairer Evaporator Relationship Specialty Start Date End Date Remedios Mehta MD [address] [place] [phone] PCP - General 02/19/09 01/04/15 documented as of this encounter
--- OUTSIDE RECORDS SUMMARY | 2024-06-24 02:17 | XMS_ITS | Encounter Summary ---
Author Organization [facility] Address [address] [place] [address] Care Team Providers Care Assistant Spa Director Name Role Phone Remedios Mehta MD Primary Care Provider [phone] Reason for Visit * Reason Onset Date Comments Medications Refill 12/18/2013 Encounter Details Date Type Department Care Team (Late st Contact Info) Description 12/18/[address] [address] Remedios Mehta MD [address] [place] [phone] Medications Refill Social History Tobacco Use [...] for Pain. 116 Tab 1 12/18/2013 02/17/2014 documented in this encounter Miscellaneous Notes * Telephone Encounter - Brook Weathers - 12/20/2013 1125 EST Hydrocodone-acet phoned in. Spoke to patient. * Telephone Encounter - Jaz De Leon - 12/18/2013 1547 EST Medication(s) Requested: Hydrocodone-Acetaminophen 10-325 mg takes one every 6 hours for pain;dispense;116;rf;1 Pharmacy: [facility] Last Refill Date: 09.13.13 Last Visit Date: 12.02.13 Next Visit Date: 12/23/2013 Is patient out of medication? Will be 12.20.13 Jaz De Leon 12/18/2013 15:47 documented in this encounter Plan of Treatment Not on file documented as of this encounter Results * OPIATE CONFIRMATION, URINE (04/22/2014 12:47 EDT) Pathologist [facility] Conf, Opiates Positive [facility] Codeine Negative <100 ng/mL [facility] Hydrocodone 1,230 <100 ng/mL [facility] Hydromorphone Negative <100 ng/mL [facility] Morphine Negative <100 ng/mL [facility] Oxycodone Negative <100 ng/mL [facility] Oxymorphone Negative <100 ng/mL [facility] Comment: (Note) This report is intended for use in clinical monitoring and management of patients. It is not intended for use in employment-related drug testing. Performed by: [facility], [address], [place] [address], [employer] Operator: Sushila Pires, Ph.D. Urine specimen (specimen) URINE / Unknown 04/22/2014 12:47 EDT 04/22/2014 18:13 EDT Remedios Mehta MD URINALYSIS ORDERReynaldo VARGAS Performing Organization Address [facility]/ZIP Co de Phone Number [facility] [address] [place] [address] * DRUG SCREEN 6 (04/22/2014 12:47 EDT) Amphetamine Screen, Urine Negative screen. [facility] Comment: Confirmation testing available upon request. Suitable for medical purposes only. Will not detect all drugs within class. Cutoff = 1000 ng/ml Specimen type is urine. Barbiturate Screen, Urine Negative screen. [facility] Comment: Confirmation testing available upon request. Suitable for medical purposes only. Will not detect all drugs within class. Cutoff = 300 ng/ml Specimen type is urine. Benzodiazepine Screen, Urine Negative screen. [facility] Comment: Confirmation testing available upon request. Suitable for medical purposes only. Will not detect all drugs within class. Assay less sensitive to Lorazepam and metabolites. Cutoff = 200 ng/ml Specimen type is urine. Cannabinoid Scrn, Ur Presumptive positive, interpret with caution. [facility] Comment: Confirmation testing available upon request. Suitable for medical purposes only. Will not detect all drugs within class. Cutoff = 50 ng/ml Specimen type is urine. Opiate Scrn, Ur Presumptive positive, interpret with caution. [facility] Comment: Confirmation testing available [...] EDT Remedios Mehta MD URINALYSIS EVER VARGAS Performing Organization Address [facility]/ZIP Co de Phone Number [facility] [address] [place] [address] documented in this encounter Visit Diagnoses Diagnosis Pain of right leg- Primary Pain in limb Cervical spondylosis without myelopathy Arthropathy Arthropathy, unspecified, site unspecified Fibromyalgia Mylagia and myositis, unspecified Medication management Encounter for long-term (current) use of other medications documented in this encounter Discontinued Medications Medication Sig Discontinue Reason Start Date End Da te HYDROcodone-acetaminophen (NORCO) 10-325 mg per tabletIndications:Pain of right leg,Cervical spondylosis without myelopathy,Arthropathy,Fi bromyalgia Take 1 Tab by mouth every 6 hours as needed for Pain. Reorder 09/13/2013 12/18/2013 documented as of this encounter Care Teams Assistant Spa Director Relationship Specialty Start Date End Date Remedios Mehta MD [address] [place] [phone] PCP - General 02/19/09 01/04/15 documented as of this encounter
--- OUTSIDE RECORDS SUMMARY | 2024-06-24 02:17 | XMS_ITS | Encounter Summary ---
Author Organization [facility] Address [address] [place] [address] Care Team Providers Care Stationary Boiler Fireman Name Role Phone Remedios Mehta MD Primary Care Provider [phone] Reason for Visit * Reason Comments Back Pain lower back pain radi ating down left buttock and leg Neck Pain Encounter Details Date Type Department Care Team (Latest Contact Info) Description 04/22/2014 15:15 EDT Office Visit [facility] Interventional Pain [address] [place], [place] [phone] Abundio Tubbs, DO [address] [place] [address] [place] [id number] Lumbar facet arthropathy (Primary Dx); Chronic low back pain; Lumbosacral spondylosis without myelopathy Social History Tobacco Use Types Packs/Day Years [...] Sign Reading Time Taken Comments Blood Pressure 162/111 04/22/2014 1617 EDT Pulse 63 04/22/2014 1617 EDT Temperature 34.3 ??C (93.8 ??F) 04/22/2014 1544 EDT Respiratory Rate 16 04/22/2014 1617 EDT Oxygen Saturation - - Inhaled Oxygen Concentration - - Weight 94.8 kg (209 lb) 04/22/2014 1544 EDT Height 153 cm (5' 0.25) 04/22/2014 1544 EDT Body Mass Index 40.48 04/22/2014 1544 EDT documented in this encounter Functional Status Cognitive Status Response Date of Assessm ent Because of a physical, menta l, or emotional condition, do you have serious difficulty concentrating, remembering, or making decisions? (5 years old or older) Yes 07/17/2013 documented as of this encounter Discharge Diagnoses Diagnosis 721.3 LUMBOSACRAL SPONDYLOSIS[ICD-9-CM] 724.2 LUMBAGO[ICD-9-CM] 716.98 ARTHROPATHY NOS-OTHER SITE[ICD-9-CM] documented in this encounter Patient Instructions * Patient Instructions* Delia Lama RN - 04/22/2014 16:09 EDT [facility] [address] [address] Patient Instructions Today please stay busy/active doing things that would normally cause you pain. Keep track of your hours of relief and your percentage of relief today (0 to 100 , 0 = no relief and 100% = total relief). Separate the pressure and tightness that we caused you from your regular pain and see what your relief is. Call us back tomorrow with this information. Procedure end time: 4:15 Pain relief start time Returned to baseline pain Hours of relief Percentage of relief 0-100 (0 = no relief, 100 = total relief) You have had your left lumbar Facet Steroid Injection. The purpose of this procedure has been to place medication which may help relieve your pain. Steroid may be used to decrease the swelling and nerve irritation which may be causing your pain. The following information should help you over the next few days regarding what you may expect. Please take it easy for the rest of today. DO NOT drive a car for the remainder of the day. If you feel sore where the needle(s) entered for the block or develop a flare-up of pain over the next few days, please use ice on the area. You may leave the ice on for up to 20 minutes at a time. Do not use heat, as this may cause swelling. As long as your primary doctor has indicated no restrictions, you may take a mild pain medicine, such as acetaminophen (Tylenol), ibuprofen (Advil, Nuprin, Motrin IB, etc.) or aspirin, if needed. The steroid injection usually takes a few days to become effective. On average, you may notice somerelief in 3 -5 days. However, it may take up to 10 - 14 days to know whether the injection was helpful. If the block causes numbness/weakness, it should wear off within a few hours. If the area that the needle(s) were inserted becomes hot, red, swollen, or increasingly tender, or if you develop a fever (100.5 or greater) or chills along with these symptoms, please call our office immediately. If you develop increasingly severe neck/back pain, continued numbness or weakness of the arms/legs or changes in your bladder or bowel functions, please call our office at once. Instructions for follow-up If you have any questions about your block, please call Patient Education Topic: Method: Handout and Verbal Taught to: Patient Barriers: None Outcomes: independent and verbalized understanding Signature: RON Lin documented in this encounter Progress Notes * Abundio Tubbs - 04/22/2014 1605 EDT PT NAME: Cherelle Husain : 1960 DOS: 04/22/2014 WEIGHT ANALYST: Abundio Suly DO BOOK CLEANER: N/A PROCEDURE: Facet injections; left L3-L4 DIAGNOSIS: 1. Lumbosacral spondylosis without myelopathy 2. Lumbar facet arthropathy 3. Chronic low back pain INTERVAL HISTORY: Ms. Husain presents for the 2nd diagnostic facet injecion of the left L3-4 joint. She has axial lbp and was seen initially at the request o Marylou Gentile for diagnostic injections toassess for facet generated lumbar pain. She has arthropathy L4-5 and L5-S1 b/l on imaging, dx facetinjections result were marginal, 60% relief for 1.75 hrs. We then performed dx injection at L3-4 based on results of her ctspect scan. She reports this injection provided 60% relief x24 hrs and 50% relief for the next 2 weeks. The pain is still present and she continues to describe it as excruciating and very limiting in terms of perfomring daily activities. Since the last procedure, she had a new CT-spect scan and was trying a nabumetone. She denies fever, chills, night sweats, bleeding diathesis, or changes in strength and/or sensation. No acute changes in bowel or bladder function. EXAMINATION Blood pressure 162/111, pulse 63, temperature 34.3 ??C (93.8 ??F), temperature source Tympanic, resp. rate 16, height 153 cm (60.25), weight 94.802 kg (209 lb), last menstrual period 03/09/2010. General: awake, alert, cooperative, no apparent distress. appropriate. Skin: no rashes, bruises or petechiae noted Gait: uses a cane, slow ambulation Joints: no redness, warmth, or swelling of the joints Lumbar: positive for paraspinal tenderness LS flex: decreased LS ext: painful CT-Spect: throsis L3-L4 with increased bone tracer uptake mostly involving the left side. Incidental focus of increased bone tracer uptake in the lateral left 2nd or 3rd rib. The most common etiology of incidental uptake in the rib would be of healing fracture, however radiographic correlation should be considered to confirm. Increased bone tracer uptake in the lower cervical spine, likely related to degenerative spondylosis. Previous Injections: 10/2013 facet injection L4-5 and L5-S1 b/l 60% relief X 1 hr 45 mins 02/2013 LESI L5-S1 no relief 12/2012 facet injection C3-4 b/l no relief 06/2012 GOLDIE C5-6 no relief 03/10/14 facet injection left L3-4 >60 % relief x24 hrs then 2 weeks of 50% relief MEDICAL DECISION: Ms. Husain is an 54 y.o. year old female with excruciating back pain, unresponsive to conservativetreatment. Based on the ctspect scan we injectioned the L3-4 facet joint diagnostically with positive results.Today we are performing a second dx injection of the same joint. PROCEDURE: The patient gave informed written consent to proceed with this procedure following a detailed discussion of the risks and benefits associated with lumbar facet joint injections. The patient was then placed in the prone position, the skin over the lumbosacral area was prepped with chlorhexadine, andthe site was draped with sterile towels. Flouroscopy was used to align the lumbar the facet joints for parasagital approach. The skin and subcutaneous tissue over the left L3-L4 facet joints was anesthetized with 2% lidocaine. A 22 guage 3.5 inch spinal needle was inserted under fluoroscopic guidance using coaxial technique into each of the aforementioned facet joints. After negative aspiration, each joint was injected with 0.5 mls 0.5% Bupivacaine and 40 mg Depo-Medrol (1/2 ml from a vial containing 80 mg/ml). There were no paresthesias during needle placement and aspiration was negative at all times. The patient tolerated the procedure well, there were no apparent complications, and he was discharged in stable condition. Written and verbal discharge instructions were reviewed with the patient prior to discharge. Abundio Tubbs DO 04/22/2014 * Hawa Angeles - 04/22/2014 1548 EDT [facility] Rooming Note Does patient have a Incendiaries Supervisor? yes Is patient NPO? (Solids since midnight & liquids for 4 hrs) Blood Thinners: Is patient on Blood Thinners? no If yes, taking? If stopped, who authorized stopping? Related comments: Infections: Any recent infections, fever of illnesses? no If on antibiotics, is it 7-10 days past the date of completion of antibiotics? no : (for females of child-bearing age) Is there a chance current ? no Other: documented in this encounter Plan of Treatment Not on file documented as of this encounter Goals Goal Patient Goal Type Associated Problems Recent Progress Patient-Stated? Author Blood Pressure < 130/80 Blood Pressure Asthma 133/57(2020 14:39 EDT) No Emily Gibson LPN LDL < 130 Result Component Hyperlipidemia 143( 4 11:54 EDT) No Emily Gibson LPN documented as of this encounter Visit Diagnoses Diagnosis Lumbar facet arthropathy- Primary Lumbosacral spondylosis without myelopathy Chronic low back pain Lumbago Lumbosacral spondylosis without myelopathy documented in this encounter Administered Medications Inactive Administered Medications - up to 3 most recent administrations Medication Order MAR Action Action Date Dose Rate Site bupivacaine (PF) (MARCAINE) 0.5 % (5 mg/mL) injection 9 mg 9 mg (1.8 mL), intrapleural, NOW X1, 1 dose, On Mon04/22/14 at 1630, Routine Given by Other 04/22/2014 16:11 EDT 0.5 mL methylPREDNISolone ACETATE (DEPO-MEDROL) injection 80 mg 80 mg, intramuscular, NOW X1, 1 dose, On Mon04/22/14 at 1630, Routine Given by Other 04/22/2014 16:12 EDT 80 mg documented in this encounter Care Teams Stationary Boiler Fireman Relationship Specialty Start Date End Date Remedios Mehta MD [address] [place] [phone] PCP - General 02/19/09 01/04/15 documented as of this encounter
--- OUTSIDE RECORDS SUMMARY | 2024-06-24 02:17 | XMS_ITS | Encounter Summary ---
Author Organization [facility] Address [address] [place] [address] Care Team Providers Care Ending Machine Operator Name Role Phone Remedios Mehta MD Primary Care Provider [phone] Reason for Referral * (Routine/Next Available) - Closed Specialty Diagnoses / Procedures Referred By Joao proctor Referred To Contact Diagnoses Extrinsic asthma, unspecified Wheezing Procedures BRONCHIAL CHALLENGE - METHACHOLINE Roberto Hodges MD [address] [place] [address] Referral ID Status Reason Start Date Expiration Date Visits Re quested Visits Authorized [id number] Closed 12/04/2013 1 1 Reason for Visit * Reason Onset Date Comments Pre-visit Orders 12/02/2013 New order for M ethacholine Encounter Details Date Type Department Care Team (Late st Contact Info) Description 12/02/2013 Telephone [facility] Pulmonology & [facility] - [facility] [address], [place] [phone] Roberto Hodges MD [address] [place], [place] [phone] Pre-visit Orders (New order for Methacholine) Social History Tobacco Use Types Packs/Day Years [...] encounter Miscellaneous Notes * Telephone Encounter - Roberto Hodges MD - 12/02/2013 1219 EST Order placed. * Telephone Encounter - Leilani Moon - 12/02/2013 1120 EST Cherelle would like to reschedule the Methacholine test. There is an order in [facility] but it is a year old, please put in a new order for the [facility] if you still want this pt to have one. documented in this encounter Plan of Treatment Not on file documented as of this encounter Visit Diagnoses Diagnosis Extrinsic asthma, unspecified- Primary Wheezing documented in this encounter Orders PFT Count Last Ordered Date First Orde red Date BRONCHIAL CHALLENGE - METHACHOLINE 1 2013 documented in this encounter Care Teams Ending Machine Operator Relationship Specialty Start Date End Date Remedios Mehta MD [address] [place] [phone] PCP - General 02/19/09 01/04/15 documented as of this encounter
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
--- OUTSIDE RECORDS SUMMARY | 2024-06-24 02:17 | XMS_ITS | Encounter Summary ---
Author Organization [facility] Address [address] [place] [address] Care Team Providers Care Filter Tip Catcher Name Role Phone Remedios Mehta MD Primary Care Provider [phone] Reason for Visit * Reason Onset Date Comments Medications Refill 04/18/2014 Encounter Details Date Type Department Care Team (Late st Contact Info) Description 04/18/[address] [address] Remedios Mehta MD [address] [place] [phone] Medications Refill Social History Tobacco Use [...] hours as needed for Pain. 116 Tab 0 04/21/2014 09/24/2018 documented in this encounter Miscellaneous Notes * Telephone Encounter - Tanisha Arias - 04/22/2014 0837 EDT Per German Ivory, patient has been informed Will approve 28 days worth. Pt needs to come in for UD6 and confirmation per my protocol with narcotic prescriptions. Patient is in agreement with this and will come in today for a nurse visit. * Telephone Encounter - Tanisha Arias - 04/21/2014 1022 EDT Patient is moving to [place] this week either on or Monday. She is having a hard time finding a new provider there that is accepting new patients. She has just gotten a list of accepting providers and will be calling around. * Telephone Encounter - Tania Nguyen - 04/18/2014 1509 EDT Medication(s) Requested: [place] Pharmacy: [facility] Last Refill Date: 02.17.14 Last Visit Date: 03.17.14 Next Visit Date: Visit date not found Is patient out of medication? YES Tania Nguyen 04/18/2014 15:10 documented in this encounter Plan of Treatment [...] spondylosis without myelopathy Pain of right leg OPIATE PANEL CONFIRMATION Routine 04/22/2014 12:47 EDT Pain of right leg Cervical spondylosis without myelopathy Arthropathy Fibromyalgia Medication management documented in this encounter Results * OPIATE CONFIRMATION, URINE (04/22/2014 12:47 EDT) Conf, Opiates Positive [facility] [...] use in employment-related drug testing. Performed by: [facility], [address], [place] [address], Slip Mixer: Sushila Pires, Ph.D. Urine specimen (specimen) URINE / Unknown 04/22/2014 12:47 EDT 04/22/2014 18:13 EDT Remedios Mehta MD URINALYSIS [facility] Organization Address City/State/[facility] Co de Phone Number [facility] [address] [place] [address] * DRUG SCREEN 6 (04/22/2014 12:47 EDT) [...] EDT Remedios Mehta MD URINALYSIS [facility] Organization Address City/State/[facility] Co de Phone Number [facility] [address] [place] [address] documented in this encounter Visit Diagnoses Diagnosis [...] 6 hours as needed for Pain. Reorder 02/17/2014 04/18/2014 documented as of this encounter Care Teams Filter Tip Catcher Relationship Specialty Start Date End Date Remedios Mehta MD [address] [place] [phone] PCP - General 02/19/09 01/04/15 documented as of this encounter
--- OUTSIDE RECORDS SUMMARY | 2024-06-24 02:17 | XMS_ITS | Encounter Summary ---
Author Organization [facility] Address [address] [place] [address] Care Team Providers Care Advertising Sales Agent Name Role Phone Remedios Mehta MD Primary Care Provider [phone] None, Provider Primary Care Provider German PabonC Primary Care Provider [phone] Elly Ling NP Primary Care Provider [phone] Reason for Visit * Reason Onset Date Comments Paperwork request 04/01/2014 Encounter Details Date Type Department Care Team (Late st Contact Info) Description 04/01/2014 Telephone [facility] Family [address] [address] Remedios Mehta MD [address] [place] [phone] Paperwork request Social History Tobacco Use [...] encounter Miscellaneous Notes * Telephone Encounter - Nathalia Ross - 04/01/2014 1505 EDT PAPERWORK FOR DISABILITY. PLACED IN CCA FOLDER. documented in this encounter Plan of Treatment [...] documented as of this encounter Care Teams Advertising Sales Agent Relationship Specialty Start Date End Date Remedios Mehta MD [address] [place] [phone] PCP - General 02/19/09 01/04/15 None, Provider PCP - General 01/05/15 09/23/18 German Garzon PA-C [address] [place] [address] PCP - General 09/28/18 05/29/22 Elly Ling NP [address] [place] [address] PCP - General Family Medicine - Primary Care 05/30/22 documented as of this encounter
--- OUTSIDE RECORDS SUMMARY | 2024-06-24 02:17 | XMS_ITS | Encounter Summary ---
Author Organization [facility] Address [address] [place] [address] Care Team Providers Care Ferry Pilot Name Role Phone Remedios Mehta MD Primary Care Provider [phone] [phone] Reason for Visit * Reason Comments Chronic Pain Hyperlipidemia Asthma Other moving Encounter Details Date Type Department Care Team (Late st Contact Info) Description 03/17/2014 11:15 EDT Office Visit [address] [address] Remedios Mehta MD [address] [place] [phone] Cervical spondylosis without myelopathy (Primary Dx); Osteoarthritis of left knee; Chronic low back pain; Chronic neck pain; Fibromyalgia; Endometrial cancer (CMS-HCC); Hyperlipidemia; HTN (hypertension); Breast hypertrophy in female Social History Tobacco Use Types Packs/Day Years [...] Sign Reading Time Taken Comments Blood Pressure 106/62 03/17/2014 1122 EDT Pulse 72 03/17/2014 1122 EDT Temperature 35.7 ??C (96.3 ??F) 03/17/2014 1122 EDT Respiratory Rate - - Oxygen Saturation - - Inhaled Oxygen Concentration - - Weight 96.6 kg (213 lb) 03/17/2014 1122 EDT Height - - Body Mass Index 41.25 03/06/2014 1019 EDT documented in this encounter Functional Status Cognitive Status Response Date of Assessm ent Because of a physical, menta l, or emotional condition, do you have serious difficulty concentrating, remembering, or making decisions? (5 years old or older) Yes 07/17/2013 documented as of this encounter Discharge Diagnoses Diagnosis 721.0 CERVICAL SPONDYLOSIS[ICD-9-CM] 715.96 OSTEOARTHROS NOS-L/LEG[ICD-9-CM] 724.2 LUMBAGO[ICD-9-CM] 723.1 CERVICALGIA[ICD-9-CM] 729.1 MYALGIA AND MYOSITIS NOS[ICD-9-CM] 182.0 MALIG HEIDY CORPUS UTERI[ICD-9-CM] 272.4 HYPERLIPIDEMIA NEC/NOS[ICD-9-CM] 401.9 HYPERTENSION NOS[ICD-9-CM] 611.1 HYPERTROPHY OF BREAST[ICD-9-CM] documented in this encounter Patient Instructions * Patient Instructions* Remedios Strong MD - 03/17/2014 11:46 EDT Images from the original note were not included. [facility] [address] [place] [address] Dr. Shayy Rios MD Family Practice Physician [phone] Dr. Manasa Ma, [facility] Patient Instructions Breast Reduction: Before Your Surgery What is breast reduction? Breast reduction surgery removes a lot of the breast tissue and skin from the breasts. This reshapes and lifts the breasts and reduces their size. It can also make the dark area around the nipple smaller. Your doctor makes a cut around the dark area and down to the crease under the breast. The cut is called an incision. To reduce the breast size, the doctor removes extra skin and breast tissue. The doctor sews the remaining skin together. This tightens and lifts the breasts. The surgery may pull thenipples and the area around them into a different spot on the breasts. Your doctor may need to moveyour nipples higher. You may lose some feeling in them because of this. The doctor closes the incisions with stitches. After surgery, your breasts will weigh less. But you may have lasting scars on your breasts. And you may have less feeling in your breasts and nipples. Breast reduction may make it hard to breast-feed. Breast reduction surgery is usually done in a hospital or surgical center. You will likely be asleep for your surgery. You will probably be able to go home the same day. Depending on the type of workyou do, you should be able to go back to work or your normal routine in 2 to 3 weeks. The incisionsleave scars that usually fade a lot with time. Follow-up care is a gomez part of your treatment and safety. Be sure to make and go to all appointments, and call your doctor if you are having problems. It's also a good idea to know your test resultsand keep a list of the medicines you take. What happens before surgery? Surgery can be stressful. This information will help you understand what you can expect. And it will help you safely prepare for surgery. Preparing for surgery ?? Understand exactly what surgery is planned, along with the risks, benefits, and other options. ?? Tell your doctors ALL the medicines, vitamins, supplements, and herbal remedies you take. Some of these can increase the risk of bleeding or interact with anesthesia. ?? If you take blood thinners, such as warfarin (Coumadin), clopidogrel (Plavix), or aspirin, be sure to talk to your doctor. He or she will tell you if you should stop taking these medicines before your surgery. Make sure that you understand exactly what your doctor wants you to do. ?? Your doctor will tell you which medicines to take or stop before your surgery. You may need to stop taking certain medicines a week or more before surgery. So talk to your doctor as soon as you can. ?? If you have an advance directive, let your doctor know. It may include a living will and a durable power of deputy commonwealth's attorney for health care. Bring a copy to the hospital. If you don't have one, you may want to prepare one. It lets your doctor and loved ones know your health care wishes. Doctors advise that everyone prepare these papers before any type of surgery or procedure. What happens on the day of surgery? ?? Follow the instructions exactly about when to stop eating and drinking. If you don't, your surgery may be canceled. If your doctor told you to take your medicines on the day of surgery, take them with only a sip of water. ?? Take a bath or shower before you come in for your surgery. Do not apply lotions, perfumes, deodorants, or nail libyan. ?? Do not shave the surgical site yourself. ?? Take off all jewelry and piercings. And take out contact lenses, if you wear them. At the hospital or surgery center ?? Bring a picture ID. ?? Your doctor will use a marker to draw lines on your breasts. He or she will use these lines during surgery to reshape your breasts. ?? You will be kept comfortable and safe by your anesthesia provider. The anesthesia may make you sleep. Or it may just numb the area being worked on. ?? The surgery will take about 2 to 4 hours. ?? You may have drain tubes in your breasts. Going home ?? Be sure you have someone to drive you home. Anesthesia and pain medicine make it unsafe for you to drive. ?? You will be given more specific instructions about recovering from your surgery. They will coverthings like diet, wound care, follow-up care, driving, and getting back to your normal routine. When should you call your doctor? ?? You have questions or concerns. ?? You don't understand how to prepare for your surgery. ?? You become ill before the surgery (such as fever, flu, or a cold). ?? You need to reschedule or have changed your mind about having the surgery. Where can you learn more? Go to www.[employer]net/fahc Enter E381 in the search box to learn more about Breast Reduction: Before Your Surgery. ?? [id number] [place]. Care instructions adapted under license by [facility], [facility]. This care instruction is for use with your licensed healthcare professional. If you have questions about a medical condition or this instruction, always ask your healthcare professional. [employer] disclaims any warranty or liability for your use of this information. Content Version: 10.0.498771; Last Revised: May 20, 2013 documented in this encounter Ordered Prescriptions Prescription Sig Dispensed Refills Start Date End Da te acetaminophen (TYLENOL) 325 mg tablet Take 2 Tabs by mouth every 6 hours as needed for Pain. 224 Tab 3 03/17/2014 documented in this encounter Progress Notes * Remedios Strong MD - 03/18/2014 0826 EDT Subjective: Patient ID: Cherelle Husain is an 53 y.o. female. Chief Complaint Patient presents with ??? Chronic Pain ??? Hyperlipidemia ??? Asthma ??? Other moving HPI Cherelle is here for general follow up. Is moving to [place] to live with Ernst, her boyfriend and childhood sweetheart. He has been living with her in [place] since they reconnected last year. Lucas sold her condo and decided to move there because it would be better for her arthritis and asthma. Her son is here in [place] but her daughter is in [place]. No new issues. Allergies acted up last month but she feels stable on current regimen of nasal spray and inhalers. Wants to work on weight loss when she gets down to [place]. Is also hoping after she establishes a medical home to get a referral for breast reduction. Has had a lifetime of upper back pain related to herlarge breasts. PMH/PSH/Meds/All/FH/SH all reviewed and updated in prism. [...] osteoarthritis, psoriatic arthritis ??? Hyperlipidemia ??? Constipation ??? Cancer Current Outpatient Prescriptions on File Prior to Visit Medication Sig Dispense Refill ??? albuterol (PROVENTIL HFA, VENTOLIN HFA) 90 [...] (FLONASE) 50 mcg/actuation nasal spray Instill 1 [place] into both nostrils daily. 1 Bottle 5 ??? HYDROcodone-acetaminophen (NORCO) 10-325 mg tablet Take 1 Tab by mouth every 6 hours as needed for Pain. 116 Tab 1 ??? ketoconazole (NIZORAL) 2 % cream Apply topically daily. Apply to affect area(s) as directed. 1 Tube 1 ??? loratadine (CLARITIN) 10 mg tablet Take 1 Tab by mouth daily. 90 Tab 1 ??? lovastatin (MEVACOR) 20 mg tablet Take 1 Tab by mouth daily. 90 Tab 4 ??? lubiprostone (AMITIZA) 24 mcg capsule Take 24 mcg by mouth as needed. ??? metoprolol (LOPRESSOR) 25 mg tablet Take 1 Tab by mouth 2 times daily. 180 Tab 4 ??? MULTIVITAMINS (MULTIVITAMIN ORAL) Take 1 Tab by mouth daily. ??? nabumetone (RELAFEN) 500 mg tablet Take 2 Tabs by mouth daily 2 tabs bid with food.. 60 Tab 2 ??? omeprazole (PRILOSEC) 20 mg capsule Take 1 Cap by mouth 2 times daily. 60 Cap 5 ??? ondansetron (ZOFRAN-ODT) 4 mg disintegrating tablet Take 1 Tab by mouth every 6 hours as neededfor Nausea. 12 Tab 0 ??? polyethylene glycol (GLYCOLAX) 17 gram/dose powder Take 17 g by mouth daily. 1 Bottle 3 ??? pregabalin (LYRICA) 50 mg capsule Take 1 Cap by mouth 3 times daily. 90 Cap 3 ??? traZODone (DESYREL) 100 mg tablet Take 1-2 Tabs by mouth at bedtime as needed for Sleep. 56 Tab3 ??? zafirlukast (ACCOLATE) 20 mg tablet Take 1 Tab by mouth 2 times daily. 180 Tab 5 No current facility-administered medications on file prior to visit. Allergies Allergen Reactions ??? Latex, Natural Rubber [...] Yes Comment: very occasional Review of Systems Musculoskeletal: Positive for myalgias, back pain and joint pain. All other systems reviewed and are negative. - See HPI Objective: BP 106/62 Pulse 72 Temp(Src) 35.7 ??C (96.3 ??F) (Tympanic) Wt 96.616 kg (213 lb) BMI 41.27kg/m2 LMP 03/09/2010 Physical Exam Constitutional: She is oriented to person, place, and time. She appears well- developed and well-nourished. HENT: Mouth/Throat: Oropharynx is clear and moist. Eyes: Conjunctivae are normal. Neck: Normal range of motion. Neck supple. Cardiovascular: Normal rate, regular rhythm, normal heart sounds and intact distal pulses. Pulmonary/Chest: Effort normal and breath sounds normal. Large pendulous breasts, several pounds each Musculoskeletal: + lordosis; + deep indentions from bra straps - easily 1cm each side Neurological: She is alert and oriented to person, place, and time. Skin: No rash noted. Psychiatric: She has a normal mood and affect. Assessment: Plan: T Osteoarthritis of left knee Chronic low back pain/spondylosis/Chronic neck pain - likely exacerbated if not a major cause by large breasts The current medical regimen is effective; continue present plan and medications. Agree with referral to plastic surgeon after establishing a medical home in [place] - reviewed providersin her area with her and she has a few names to start with Fibromyalgia Endometrial cancer S/p successful surgery - no need for further tx Routine monitoring Hyperlipidemia - Lipid Profile (Includes Cholesterol, Triglycerides, HDL, LDL) HTN (hypertension) The current medical regimen is effective; continue present plan and medications. - TSH - Hemagram and Differential - Comprehensive Metabolic Panel (CMP) - Hemagram - Differential Breast hypertrophy in female Other Orders - acetaminophen (TYLENOL) 325 mg tablet; Take 2 Tabs by mouth every 6 hours as needed for Pain. * Viky Esparza - 03/17/2014 1213 EDT Venipuncture preformed 1 attempt left a/c successful 1 SST, 1 Lav I was supervised by Reemdios Strong who was present and immediately available in the office suite. Viky Cortes 03/17/2014 12:13 documented in this encounter Plan of Treatment [...] Procedure Name Priority Date/Time Associated Diagnosis Comments DIFFERENTIAL Routine 03/17/2014 11:54 EDT HTN (hypertension) COMPLETE BLOOD COUNT Routine 03/17/2014 11:54 EDT HTN (hypertension) COMPLETE BLOOD COUNT AND DIFFERENTIAL Routine 03/17/2014 11:54 EDT HTN (hypertension) TSH Routine 03/17/2014 11:54 EDT HTN (hypertension) LIPID PROFILE (INCLUDES CHOLESTEROL, TRIGLYCERIDES, HDL, LDL) Routine 03/17/2014 11:54 EDT Hyperlipidemia COMPREHENSIVE METABOLIC PANEL (CMP) Routine 03/17/2014 11:54 EDT HTN (hypertension) documented in this encounter Results * DIFFERENTIAL (03/17/2014 11:54 EDT) % Neutrophils 63.7 45.5 - 79.7 % [facility] % Lymphocytes 27.2 15.0 - 46.8 % [facility] % Monocytes 6.0 1.8 - 12.0 % [facility] % Eosinophils 2.3 0.6 - 6.9 % [facility] % Basophils 0.8 0.2 - 1.4 % [facility] ABS Neutrophils 4.13 2.20 - 8.85 K/cmm [facility] ABS Lymphs 1.76 1.09 - 3.30 K/cmm [facility] ABS Monocytes 0.39 0.1 - 0.8 K/cmm [facility] ABS Eosinophils 0.15 0.03 - 0.61 K/cmm [facility] ABS Basophils 0.05 0.01 - 0.11 K/cmm [facility] Type of Diff: Automated [facility] 03/17/2014 11:5 4 EDT 03/17/2014 19:13 EDT Remedios Mehta MD HEMATOLOGY & PF4 ORDERABLES Performing Organization Address [facility] de Phone Number [facility] [address] [place] [address] * HEMAGRAM (03/17/2014 11:54 EDT) WBC 6.48 4.0 - 12.4 K/cmm [facility] RBC 4.31 3.86 - 5.04 M/cmm [facility] Hemoglobin 13.5 11.6 - 15.2 gm/dl [facility] HCT 38.9 34.9 - 44.4 % [facility] MCV 90 81 - 98 fl [facility] MCH 31.4 26.7 - 33.3 pg [facility] MCHC 34.7 32.1 - 35.9 gm/dl [facility] PLT 276 141 - 320 K/cmm [facility] RDW-CV 12.6 11.7 - 14.6 % [facility] 03/17/2014 11:5 4 EDT 03/17/2014 19:13 EDT Remedios Mehta MD HEMATOLOGY & PF4 ORDERABLES Performing Organization Address City/[facility] Co de Phone Number [facility] [address] [place] [address] * LIPID PROFILE (INCLUDES CHOLESTEROL, TRIGLYCERIDES, HDL, LDL) (03/17/2014 11:54 EDT) Pathologist [facility] Cholesterol 228 mg/dl [facility] Comment: Desirable:<200 Borderline High:200-239 High:>ss=624 Triglycerides 215 mg/dl [facility] Comment: Normal:<150 Borderline High:150-199 High:200-499 Very High:>fr=787 HDL 42 mg/dl [facility] Comment: Low:<40 Normal:40-60 Desirable: >60 LDL, Calculated 143 mg/dl [facility] Comment: Optimal:<100 Near Optimal:100-129 Borderline High:130-159 High:160-189 Very High:>bw=597 Chol/HDL Ratio 5.4 [facility] Fasting? Unknown [facility] Non HDL Cholesterol 186 mg/dl [facility] Comment: Desirable:<130 Borderline:130-159 High: 160-189 Very High: >zd=585 Blood specimen (specimen) 03/17/2014 11:54 EDT 03/17/2014 19:13 EDT Remedios Mehta MD CHEMISTRY & BLOOD GAS ORDERABLES [facility] [address] [place] [address] * (ABNORMAL) COMPREHENSIVE METABOLIC PANEL (CMP) (03/17/2014 11:54 EDT) Pathologist [facility] Potassium 3.8 3.5 - 5.0 mEq/L [facility] Sodium 141 136 - 145 mEq/L [facility] Chloride 101 96 - 110 mEq/L [facility] CO2 29 24 - 32 mEq/L [facility] Total Alkaline Phosphatase 94 38 - 126 U/L [facility] Bilirubin, Total <0.5 <1.4 mg/dl [facility] AST 14(L) 15 - 46 U/L [facility] ALT 28 9 - 52 U/L [facility] Albumin 4.0 3.4 - 4.9 g/dl [facility] Total Protein 6.9 6.5 - 8.3 g/dl [facility] Creatinine 0.60 0.52 - 1.04 mg/dl [facility] GFR, Calculated >60 >60 ml/min/1.7 3m2 [facility] BUN 21 10 - 26 mg/dl [facility] Calcium 9.5 8.5 - 10.5 mg/dl [facility] Calculated Calcium 9.9 8.5 - 10.5 mg/dl [facility] Glucose, Serum 135(H) 70 - 100 mg/dl [facility] Fasting? Unknown [facility] Blood specimen (specimen) 03/17/2014 11:54 EDT 03/17/2014 19:13 EDT Remedios Mehta MD CHEMISTRY & BLOOD GAS ORDERABLES Performing Organization Address [facility] de Phone Number [facility] [address] [place] [address] * TSH (03/17/2014 11:54 EDT) TSH 0.69 0.35 - 5.00 uIU/ml [facility] Blood specimen (specimen) 03/17/2014 11:54 EDT 03/17/2014 19:13 EDT Remedios Mehta MD CHEMISTRY & BLOOD GAS ORDERABLES Performing Organization Address [facility] de Phone Number [facility] [address] [place] [address] documented in this encounter Visit Diagnoses Diagnosis Cervical spondylosis without myelopathy- Primary Osteoarthritis of left knee Osteoarthrosis, unspecified whether generalized or localized, lower leg Chronic low back pain Lumbago Chronic neck pain Cervicalgia Fibromyalgia Mylagia and myositis, unspecified Endometrial cancer (HCC-CMS) Malignant neoplasm of corpus uteri, except isthmus Hyperlipidemia Other and unspecified hyperlipidemia HTN (hypertension) Unspecified essential hypertension Breast hypertrophy in female Hypertrophy of breast documented in this encounter Discontinued Medications Medication Sig Discontinue Reason Start Date End Da te acetaminophen (TYLENOL) 325 mg tablet Take 2 Tabs by mouth every 6 hours as needed for Pain. Reorder 06/14/2013 03/17/2014 documented as of this encounter Care Teams Ferry Pilot Relationship Specialty Start Date End Date Remedios Mehta MD [address] [place] [phone] PCP - General 02/19/09 01/04/15 documented as of this encounter
--- OUTSIDE RECORDS SUMMARY | 2024-06-24 02:17 | XMS_ITS | Encounter Summary ---
Author Organization [facility] Address [address] [place] [address] Care Team Providers Care Base Draw Operator Name Role Phone Remedios Mehta MD Primary Care Provider [phone] Reason for Visit * Reason Onset Date Comments Sinusitis 11/20/2013 Encounter Details Date Type Department Care Team (Late st Contact Info) Description 11/20/[address] [address] Remedios Mehta MD [address] [place] [phone] Sinusitis Social History Tobacco Use Types Packs/Day Years [...] Dispensed Refills Start Date End Da te azithromycin (ZITHROMAX) 250 mg tablet Take 2 tablets (500 mg) on day 1, followed by 1 tablet (250 mg) once daily on days 2 through 5. 6 Tab 0 11/20/2013 12/23/2013 documented in this encounter Miscellaneous Notes * Telephone Encounter - Argelia Farias RN - 11/21/2013 1023 EST Return call to Cherelle. She is audibly congested and her speech is nasally. She continues to have sinus pain/pressure. I've shared with her that Dr Strong has ordered Azithromycin for her. She has used a Z-pack beforeand understands indication and directions. She agrees to schedule an office visit if she has poor or no benefit from her antibiotic. No known barriers during this encounter. Cherelle will call PRN with any questions, changes or concerns. Argelia Farias RN * Telephone Encounter - Jaz De Leon - 11/20/2013 1540 EST Reason for Call: Sinusitis Summary/Symptoms: Coughing up green sputum Onset and Duration? Has had sinus pain/pressure and coughing up greenish phlegm for over a week. Requesting antibiotic to treat. Please send script to [facility]/ Appointment Offered? Nurse triage Jaz De Leon 11/20/2013 15:40 documented in this encounter Plan of Treatment Not on file documented as of this encounter Visit Diagnoses Not on filedocumented in this encounter Care Teams Base Draw Operator Relationship Specialty Start Date End Date Remedios Mehta MD [address] [place] [phone] PCP - General 02/19/09 01/04/15 documented as of this encounter
--- OUTSIDE RECORDS SUMMARY | 2024-06-24 02:17 | XMS_ITS | Encounter Summary ---
Author Organization [facility] Address [address] [place] [address] Care Team Providers Care Manager Revenue Name Role Phone Remedios Mehta MD Primary Care Provider [phone] Reason for Visit * Reason Onset Date Comments Medications Refill 04/18/2014 Encounter Details Date Type Department Care Team (Late st Contact Info) Description 04/18/2014 Refill [facility] Interventional Pain [address] [place], [place] [id number] Abundio Tubbs, DO [address] [facility] [address] [place] [address] Medications Refill Social History Tobacco Use Types [...] with food.. 60 Tab 2 04/18/2014 04/18/2021 documented in this encounter Miscellaneous Notes * Telephone Encounter - Ivy Rayo, RN - 04/18/2014 3065 EDT Last appt: 02/25/14 Next appt:04/22/14 Med Last start date Last end date New RX start date relafen 01/10/14 04/12/14 04/18/14 * Telephone Encounter - Leonarda Bennett - 04/18/2014 1503 EDT relafen 500 mg2 tabs daily Need [facility] She is out didn't realize she was ion her last refill documented in this encounter Plan of Treatment [...] mouth daily 2 tabs bid with food.. Reorder 01/10/2014 04/18/2014 documented as of this encounter Care Teams Manager Revenue Relationship Specialty Start Date End Date Remedios Mehta MD [address] [place] [phone] PCP - General 02/19/09 01/04/15 documented as of this encounter
--- OUTSIDE RECORDS SUMMARY | 2024-06-24 02:17 | XMS_ITS | Encounter Summary ---
Author Organization [facility] Address [address] [place] [address] Care Team Providers Care Second Baker Name Role Phone Remedios Mehta MD Primary Care Provider [phone] [phone] Reason for Visit * Reason Comments Joint Pain back, knee and incre ased pain with weather Encounter Details Date Type Department Care Team (Late st Contact Info) Description 03/06/2014 10:00 EDT Office Visit [facility] Rheumatology & Immunology - [facility] [address] [place] [address] Yovana Callejas MD [address] [place] [address] [phone] Fibromyalgia (Primary Dx) Social History Tobacco Use Types [...] Sign Reading Time Taken Comments Blood Pressure 120/68 03/06/2014 1019 EDT Pulse 68 03/06/2014 1019 EDT Temperature - - Respiratory Rate 14 03/06/2014 1019 EDT Oxygen Saturation - - Inhaled Oxygen Concentration - - Weight 95.7 kg (211 lb) 03/06/2014 1019 EDT Height 153 cm (5' 0.25) 03/06/2014 1019 EDT Body Mass Index 40.87 03/06/2014 1019 EDT documented in this encounter Functional Status Cognitive Status Response Date of Assessm ent Because of a physical, menta l, or emotional condition, do you have serious difficulty concentrating, remembering, or making decisions? (5 years old or older) Yes 07/17/2013 documented as of this encounter Discharge Diagnoses Diagnosis 721.0 CERVICAL SPONDYLOSIS[ICD-9-CM] documented in this encounter Patient Instructions * Patient Instructions* Yovana Callejas MD - 03/06/2014 10:40 EDT Lyrica 50 mg three times a day Can decrease trazodone if too sleepy can decrease dose to 75 mg documented in this encounter Ordered Prescriptions Prescription Sig Dispensed Refills Start Date End Da te pregabalin (LYRICA) 50 mg capsule Take 1 Cap by mouth 3 times daily. 90 Cap 3 03/06/2014 documented in this encounter Progress Notes * Yovana Callejas MD - 03/06/2014 1214 EDT Chief Complaint Patient presents with ??? Joint Pain back, knee and increased pain with weather This patient presents here in followup of fibromyalgia. SUBJECTIVE: She has had a scare recently as she has had a SPECT scan performed of her back and there was a lesion in a rib. She was worried about cancer. She has a distant history of gynecologic cancer; however, she does not know where to turn for followup. Her fibromyalgia has been very active lately. This is because she is under a good deal of stress. She is selling her home and planning to move to [place], and she has been reunited with a grade school sweetheart. At the same time, her daughter, who also lives in [place], is talking ofputting her grandson, age 11, into foster care for behavioral issues. The patient states she has ongoing nausea. Wonders if it is from all of her medications. She takes narcotics but would prefer to smoke pot because the narcotics make her feel sick to her stomach. Lucas also had alternating diarrhea and constipation. Muscles hurt all over. She cannot sleep without trazodone, but when she takes this medicine, she sleeps well. Past Medical History Diagnosis Date ??? Fibromyalgia [...] (FLONASE) 50 mcg/actuation nasal spray Instill 1 [place] into both nostrils daily. 1 Bottle 5 [...] by mouth daily. 1 Bottle 3 ??? traZODone (DESYREL) 100 mg tablet [...] Soy Constipation ??? Wheat Containing Prod Constipation BP 120/68 Pulse 68 Resp 14 Ht 153 cm (60.25) Wt 95.709 kg (211 lb) BMI 40.89 kg/m2 [facility]03[facility]2010 EXAM: She is tearful, appears tired. Has a broad-based and unsteady gait. Her skin shows no bruisesor changes. Myofascial tender points are discretely and profoundly tender throughout. 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 Joints show no synovitis, although she complains of severe pain in the hands. IMPRESSION: 1. Very active fibromyalgia, likely due to multiple stressors. 2. Polypharmacy, want to be cautious with additions of any new medications. RECOMMENDATIONS: 1. Could increase Lyrica to 50 mg 3 times a day as this has been of benefit. 2. Consider slow reduction in her dose of trazodone; however, she is convinced she will not sleep without it. Would also suggest return appointment here in 3 months. If she is in [place] at that time, I will facilitate a referral. No orders of the defined types were placed in this encounter. Med Orders Placed This Visit and Additions to the Medication List Medications ??? pregabalin (LYRICA) 50 mg capsule Sig: Take 1 Cap by mouth 3 times daily. Dispense: 90 Cap Refill: 3 documented in this encounter Plan of Treatment Not on file documented as of this encounter Visit Diagnoses Diagnosis Fibromyalgia- Primary Mylagia and myositis, unspecified documented in this encounter Discontinued Medications Medication Sig Discontinue Reason Start Date End Da te meloxicam (MOBIC) 7.5 mg tablet Take 1 Tab by mouth daily. Therapy completed 01/14/2014 03/06/2014 pregabalin (LYRICA) 50 mg capsule Take 1 Cap by mouth 2 times daily. Reorder 12/17/2013 03/06/2014 documented as of this encounter Care Teams Second Baker Relationship Specialty Start Date End Date Remedios Mehta MD [address] [place] [phone] PCP - General 02/19/09 01/04/15 documented as of this encounter
--- OUTSIDE RECORDS SUMMARY | 2024-06-24 02:17 | XMS_ITS | Encounter Summary ---
Author Organization [facility] Address [address] [place] [address] Care Team Providers Care Lab Assistant Name Role Phone Remedios Mehta MD Primary Care Provider [phone] [phone] Encounter Details Date Type Department Care Team (Latest Contact Info) Description 02/05/2014 9:00 EDT - 02/05/2014 23:59 EDT Hospital Encounter [facility] Pulmonary Function Lab - [facility] [address] [place], [place] [id number] Extrinsic asthma, unspecified; Wheezing Discharge Disposition: Home or Self Care Social [...] Yes 07/17/2013 documented as of this encounter Medications at Time of Discharge [...] bowel syndrome),GERD (gastroesophageal reflux disease) Instill 1 [place] into both nostrils daily. 1 Bottle 5 [...] Code Departure Means Destination Home or Self Assisted documented in this encounter Progress Notes * Thao Carrington - 02/05/2014 1111 EDT Testing was performed and recorded in [facility]. See complete report in scanned documents. documented in this encounter Miscellaneous Notes * Addendum Note - Emerald Maldonado RPH - 02/05/2014 1237 EDTEncounter addended by: Emerald Maldonado RPH on: 02/05/2014 12:37
Documentation filed: Rx Order Verification documented in this encounter Plan of Treatment Not on file documented as of this encounter Procedures Procedure Name Priority Date/Time Associated Diagnosis Comments MA MAMMO. SCREENING LANCE 04/18/2014 13:07 EDT PULMONARY FUNCTION REPORT - SCANNED 03/11/2014 13:18 EDT documented in this encounter Results * MA MAMMO. SCREENING LANCE (04/18/2014 13:07 EDT) Anatomical Region Laterality Modality Other 04/18/2014 13:0 7 EDT 04/18/2014 14:24 EDT Narrative 04/18/2014 14:24 EDT Comparison has been made to previous images. Bilateral Breast Findings: (Routine digital views with CAD and 3D images with Tomosynthesis) The breasts are almost entirely fat (less than 25% fibroglandular). No significant masses, calcifications or other abnormalities are seen. IMPRESSION: BILATERAL BREASTS: Negative, no evidence of malignancy. Normal interval follow-up is recommended in 12 months. OVERALL ASSESSMENT - CATEGORY 1 - NEGATIVE END OF IMPRESSION. These results will be communicated to your patient via a lay letter from Radiology. If any additional imaging is needed we will contact your patient directly. Procedure Note 04/18/2014 Comparison has been made to previous images. Bilateral Breast Findings: (Routine digital views with CAD and 3D images with Tomosynthesis) The breasts are almost entirely fat (less than 25% fibroglandular). No significant masses, calcifications or other abnormalities are seen. IMPRESSION: BILATERAL BREASTS: Negative, no evidence of malignancy. Normal interval follow-up is recommended in 12 months. OVERALL ASSESSMENT - CATEGORY 1 - NEGATIVE END OF IMPRESSION. These results will be communicated to your patient via a lay letter from Radiology. If any additional imaging is needed we will contact your patient directly. Remedios Mehta MD IMG MAMMOGRAPHY O RDERABLES * PULMONARY FUNCTION REPORT - SCANNED (03/11/2014 13:18 EDT) 03/11/2014 13:1 8 EDT Scan 2 Traffic Warehouse Supervisor PROCEDURE/MINOR BRIANA GICAL ORDERABLES documented in this encounter Visit Diagnoses Diagnosis Extrinsic asthma, unspecified Wheezing documented in this encounter Administered Medications Inactive Administered Medications - up to 3 most recent administrations Medication Order MAR Action Action Date Dose Rate Site albuterol (VENTOLIN HFA) inhaler 4 Puff 4 Puff, inhalation, Once (Without Time Specified), 1 dose, Starting on Mon02/05/14 at 1130, Until Mon02/05/14 at 1100, Routine Given 02/05/2014 11:00 EDT 4 Puffs documented in this encounter Orders Medications Ordered That Max ht Not Have Been Administered Count Last Ordered Date First Ordered Date methacholine (PROVOCHOLINE) inhalation solution 1 02/04/2014 documented in this encounter Care Teams Lab Assistant Relationship Specialty Start Date End Date Remedios Mehta MD [address] [place] [id number] PCP - General 02/19/09 01/04/15 documented as of this encounter
--- OUTSIDE RECORDS SUMMARY | 2024-06-24 02:17 | XMS_ITS | Encounter Summary ---
Author Organization [facility] Address [address] [place] [address] Care Team Providers Care Field Supervisor Seed Production Name Role Phone Remedios Mehta MD Primary Care Provider [phone] [phone] Reason for Referral * Radiology Services (Routine) - Closed Specialty Diagnoses / Procedures Referred By Contac t Referred To Contact Diagnoses Knee pain Procedures KNEE 1 OR 2 VIEWS Yonathan Moreland MD Referral ID Status Reason Start Date Expiration Date Visits Re quested Visits Authorized [id number] Closed 04/18/2014 1 1 * Radiology Services (Routine) - Closed Specialty Diagnoses / Procedures Referred By Contac t Referred To Contact Diagnoses Knee pain Procedures KNEE 1 OR 2 VIEWS Yonathan Moreland MD Referral ID Status Reason Start Date Expiration Date Visits Re quested Visits Authorized [id number] Closed 04/18/2014 1 1 Encounter Details Date Type Department Care Team (Late st Contact Info) Description 04/17/2014 Orders Only [facility] Total Joint Program - [address] [place], [place] [id number] Yonathan Moreland MD Knee pain (Primary Dx) Social History Tobacco Use Types [...] Procedure Name Priority Date/Time Associated Diagnosis Comments KNEE 1 OR 2 VIEWS Routine 04/21/2014 13: 50 EDT Knee pain KNEE 1 OR 2 VIEWS Routine 04/21/2014 13: 50 EDT Knee pain documented in this encounter Results * KNEE 1 OR 2 VIEWS (04/21/2014 13:50 EDT) Anatomical Region Laterality Modality Other 04/21/2014 13:5 0 EDT 04/21/2014 14:02 EDT Narrative 04/21/2014 14:02 EDT KNEE 1 OR 2 VIEWS, KNEE 1 OR 2 VIEWS ??04/21/2014 1:50 PM Signs and Symptoms/Comments: ?? 719.46-Pain in joint, lower dzd-RAE-5-CM; left knee pain Comparison: None Findings: Weight-bearing frontal and lateral views were obtained of both knees. The patient has had previous total right knee replacement without evidence of complication or new abnormality. There is severe asymmetric medial joint space loss in the left knee although only small osteophytes are present. Chondrocalcinosis is seen in the lateral compartment. A large suprapatellar effusion is present. Osteophytes are present off the posterior aspect of the patella. Impression: 1. Left knee medial compartment osteoarthrosis with large suprapatellar effusion and chondrocalcinosis. 2. Satisfactory appearing total knee right knee replacement Procedure Note 04/21/2014 KNEE 1 OR 2 VIEWS, KNEE 1 OR 2 VIEWS 04/21/2014 1:50 PM Signs and Symptoms/Comments: 719.46-Pain in joint, lower zpg-ZSA-6-CM; left knee pain Comparison: None Findings: Weight-bearing frontal and lateral views were obtained of both knees. The patient has had previous total right knee replacement without evidence of complication or new abnormality. There is severe asymmetric medial joint space loss in the left knee although only small osteophytes are present. Chondrocalcinosis is seen in the lateral compartment. A large suprapatellar effusion is present. Osteophytes are present off the posterior aspect of the patella. Impression: 1. Left knee medial compartment osteoarthrosis with large suprapatellar effusion and chondrocalcinosis. 2. Satisfactory appearing total knee right knee replacement Yonathan Moreland MD [facility] DIAGNOSTIC IMAGING ORDERABLES * KNEE 1 OR 2 VIEWS (04/21/2014 13:50 EDT) Anatomical Region Laterality Modality Other 04/21/2014 13:5 0 EDT 04/21/2014 14:02 EDT Narrative 04/21/2014 14:02 EDT KNEE 1 OR 2 VIEWS, KNEE 1 OR 2 VIEWS ??04/21/2014 1:50 PM Signs and Symptoms/Comments: ?? 719.46-Pain in joint, lower atj-MSI-3-CM; left knee pain Comparison: None Findings: Weight-bearing frontal and lateral views were obtained of both knees. The patient has had previous total right knee replacement without evidence of complication or new abnormality. There is severe asymmetric medial joint space loss in the left knee although only small osteophytes are present. Chondrocalcinosis is seen in the lateral compartment. A large suprapatellar effusion is present. Osteophytes are present off the posterior aspect of the patella. Impression: 1. Left knee medial compartment osteoarthrosis with large suprapatellar effusion and chondrocalcinosis. 2. Satisfactory appearing total knee right knee replacement Procedure Note 04/21/2014 KNEE 1 OR 2 VIEWS, KNEE 1 OR 2 VIEWS 04/21/2014 1:50 PM Signs and Symptoms/Comments: 719.46-Pain in joint, lower mos-PMU-0-CM; left knee pain Comparison: None Findings: Weight-bearing frontal and lateral views were obtained of both knees. The patient has had previous total right knee replacement without evidence of complication or new abnormality. There is severe asymmetric medial joint space loss in the left knee although only small osteophytes are present. Chondrocalcinosis is seen in the lateral compartment. A large suprapatellar effusion is present. Osteophytes are present off the posterior aspect of the patella. Impression: 1. Left knee medial compartment osteoarthrosis with large suprapatellar effusion and chondrocalcinosis. 2. Satisfactory appearing total knee right knee replacement Yonathan Moreland MD IMG DIAGNOSTIC IMAGING ORDERABLES documented in this encounter Visit Diagnoses Diagnosis Knee pain- Primary Pain in joint, lower leg documented in this encounter Care Teams Field Supervisor Seed Production Relationship Specialty Start Date End Date Remedios Mehta MD [address] [place] [phone] PCP - General 02/19/09 01/04/15 documented as of this encounter
--- OUTSIDE RECORDS SUMMARY | 2024-06-24 02:17 | XMS_ITS | Encounter Summary ---
Author Organization [facility] Address [address] [place] [address] Care Team Providers Care Web Ui Developer Name Role Phone Remedios Mehta MD Primary Care Provider [phone] [phone] Reason for Visit * Reason Comments Knee Pain Left knee DOI 04/02/14 Encounter Details Date Type Department Care Team (Late st Contact Info) Description 04/21/2014 14:00 EDT Office Visit [facility] Total Joint Program - [address] [place], [place] [phone] Yonathan Moreland MD Internal derangement of knee (Primary Dx); Left knee DJD Discharge Disposition: Auto Discharge Social History Tobacco [...] Sign Reading Time Taken Comments Blood Pressure - - Pulse - - Temperature - - Respiratory Rate - - Oxygen Saturation - - Inhaled Oxygen Concentration - - Weight 96.6 kg (213 lb) 04/21/2014 1309 EDT Height 153 cm (5' 0.25) 04/21/2014 1309 EDT Body Mass Index 41.25 04/21/2014 1309 EDT documented in this encounter Functional Status Cognitive Status Response Date of Assessm ent Because of a physical, menta l, or emotional condition, do you have serious difficulty concentrating, remembering, or making decisions? (5 years old or older) Yes 07/17/2013 documented as of this encounter Discharge Diagnoses Diagnosis 719.46 JOINT PAIN-L/LEG[ICD-9-CM] V71.89 OBSERVATION FOR OTHER SPECIFIED SUSPECTED CONDITIONS[ICD-9-CM] 717.9 INT DERANGEMENT KNEE NOS[ICD-9-CM] 715.96 OSTEOARTHROS NOS-L/LEG[ICD-9-CM] documented in this encounter Discharge Disposition Disposition Code Departure Means Destination Auto Discharge documented in this encounter Progress Notes * Yonathan Moreland MD - 04/21/2014 1439 EDT Corticosteroid Injection Procedure (): left knee Injection # 1 Previous office notes and imaging studies were reviewed. This patient's past medical history, medications, allergies/adverse drug reactions were reviewed and updated. After discussing the potential diagnostic and therapeutic benefits and the relative risks, the pre-procedure briefing was completed and the knee injection site prepped and draped. The anterolateral portal was injected with 3 mL of 15 lidocaine after ethyl chloride spray. The knee was injected with 8 mL 0.25% bupivacaine, and 2 mL (80 mg) DepoMedrol. Sterile dressing placed. Debrief completed. Patient tolerated procedure well. Steroid flare risk and self-management discussed. Patient instructed to complete pain log and return to this office prn as she is moving to [place] in three days. * Cathryn Sanches - 04/21/2014 1359 EDT Left knee Injection Bupivacaine 0.5% 5 mg/mL Med lot number: [id number] [facility] number: [id number] Exp date: 30JUL2015 Visual Coordinator: [employer] Drug waste: 10 mL vial, used 8 mL, wasted 2 mL Depo-Medrol 80 mg/mL Med lot number: [id number] [facility] [place] number: [id number] Exp date: 01/2015 Visual Coordinator: [employer]. Drug waste:1 mL vial, used 1 mL, wasted 0 mL Cathryn Sanches 13:59 * Yonathan Moreland MD - 04/21/2014 1350 EDT Chief Complaint Patient presents with ??? Knee Pain Left knee DOI 04/02/14 HPI: Cherelle is a 54 y.o. female who presents as an established patient (previous R TKA) for left knee pain. She has a known history of left knee OA, but states she had an injury on 04/02. The onset of the pain was sudden, occurring after a twisting motion. She did not fall, but she had immediate pain and swelling. The pain is constant, but improves with rest, qualified as a sharp pain Intensity of pain is a 7/10. The symptoms are worse with walking, stair climbing and rising out of a chair. The pain is improved with rest, activity modification and heat pakcs. The symptoms interfere with ADL's and sleep activities as she cannot let her left knee rest on her right. The patient is able to walk, but it is painful. She states that sometimes her leg locks up and she has to shake it loose. This pain is different from her prior left knee arthritic pain. The pain does radiate down to her lateral left lower leg. Previous treatments includeNSAIDS and Hydrocodone as well as rest and heat packs. Previous studies include X-ray. She is moving to [place] this and is wondering what can be done about this knee pain. She does also describe lower back pain and symptoms of shooting burning and stabbing pains that go down her buttock, across her anterior thigh, down her lateral leg, and into her toes. She states this is likely from her back and that this isn't necessarily new, but is bothering her a lot. History reviewed: Today's rooming note, PMH, ROS, Social History, Surgical History and Relevant Results Outside reports reviewed: none Review of Systems: Negative except for as listed above and below Physical Exam: General: Well-appearing female in no acute distress. Vital Signs: Ht 153 cm (60.25) Wt 96.616 kg (213 lb) BMI 41.27 kg/m2 LMP 03/09/2010 Skin: Intact to inspection and palpation. Psychiatric: Mood and affect appropriate. A and O x3. Musculoskeletal Exam: Gait is impaired, slow to start walking, limps on left leg. Uses cane. Bilateral lower extremities show equal motion of the hips and ankles. Left knee: Range of motion decreased from 5-90 degrees of flexion/extension. Stability testing shows no instability to AP or varus-valgus stress. Varus mal-alignment of left knee. 1+ effusion. Positive patellofemoral crepitus. Positive pain to palpation of the medial lateral joint line. Positive pain to palpation of the patellar tendon. Right knee exam shows well healed midline surgical incision with range of motion from 0-110 degrees. Mild Varus mal-alignment. No effusion. No patellofemoral crepitus. No pain to palpation of the medial lateral joint line. No pain to palpation of the patellar tendon. Normal strength, tone, and stability of both lower extremities distally. Neurologic Exam: Intact sensation and reflexes in right lower extremities, but somewhat decreased sensation over dorsal forefoot and lateral left lower leg. Vascular: 2+ pedal pulses of both lower extremities. X-RAYs today show no fractures, subluxations, dislocations, or destructive lesions. Joint space narrowing is noted medially and at the patellofemoral joint, with significant signs of OA in the left knee. Procedure Performed: Corticosteroid Injection- left knee Left knee was prepped in sterile fashion Left knee was injected with 0.5% Bupivacaine and 80mg/ml Depot Medrol. Dressed with Band-aid Patient tolerated procedure well. Impression: Left knee osteoarthritis and possible meniscal injury. Recommendation: -I recommend conservative management including a knee immobilizer and a corticosteroid injection inclinic today. -She should continue to rest, ice, elevate, use heat packs, and take NSAIDs as she had been. -She may have a new lateral meniscal injury along with her severe medial compartment OA and impending move, pursuing either MRI is not feasible nor will it provide new information. An arthroscopic surgery is unlikely to relieve her chronic symptoms but could help with her new mechanical lateral knee pain. She will likely need a left knee TKA in the future to address her chronic complaints of arthralgia and . Patient voiced understanding and agreed with the plan. documented in this encounter Plan of Treatment Not on file documented as of this encounter Goals Goal Patient Goal Type Associated Problems Recent Progress Patient-Stated? Author Blood Pressure < 130/80 Blood Pressure Asthma 133/57(2020 14:39 EDT) No Emily Gibson LPN LDL < 130 Result Component Hyperlipidemia 143( 11:54 EDT) No Emily Gibson LPN documented as of this encounter Visit Diagnoses Diagnosis Internal derangement of knee- Primary Unspecified internal derangement of knee Left knee DJD Osteoarthrosis, unspecified whether generalized or localized, lower leg documented in this encounter Care Teams Web Ui Developer Relationship Specialty Start Date End Date Remedios Mehta MD [address] [place] [phone] PCP - General 02/19/09 01/04/15 documented as of this encounter
--- OUTSIDE RECORDS SUMMARY | 2024-06-24 02:17 | XMS_ITS | Encounter Summary ---
Author Organization [facility] Address [address] [place] [address] Care Team Providers Care Banquet Director Name Role Phone Remedios Mehta MD Primary Care Provider +1 [phone] Reason for Visit * Reason Comments Other Encounter Details Date Type Department Care Team (Late st Contact Info) Description 01/12/[address] [address] Remedios Mehta MD [address] [place] [phone] Other Social History Tobacco Use Types [...] for Sleep. 56 Tab 3 01/13/2014 05/10/2014 documented in this encounter Plan of Treatment Not on file documented as of this encounter Visit Diagnoses Not on filedocumented in this encounter Discontinued Medications Medication Sig Discontinue Reason Start Date End Da te traZODone (DESYREL) 100 mg tabletIndications:Pain of right leg Take 1 Tab by mouth at bedtime. Reorder 09/13/2013 01/12/2014 documented as of this encounter Care Teams Banquet Director Relationship Specialty Start Date End Date Remedios Mehta MD [address] [place] [phone] PCP - General 02/19/09 01/04/15 documented as of this encounter
--- OUTSIDE RECORDS SUMMARY | 2024-06-24 02:17 | XMS_ITS | Encounter Summary ---
Author Organization [facility] Address [address] [place] [address] Care Team Providers Care Hospital Librarian Name Role Phone Remedios Mehta MD Primary Care Provider [phone] [phone] Reason for Visit * Reason Comments Back Pain lower Neck Pain Shoulder Pain right Encounter Details Date Type Department Care Team (Latest Contact Info) Description 01/10/2014 9:45 EDT Office Visit [facility] Interventional Pain [address] [place], [place] [id number] Abundio Cormier, DO [address] [place] [address] [place] [id number] Lumbosacral spondylosis without myelopathy (Primary Dx); Chronic low back pain; Lumbar facet arthropathy; Chronic neck pain Social History Tobacco Use Types Packs/Day Years [...] Sign Reading Time Taken Comments Blood Pressure 135/68 01/10/2014 1008 EDT Pulse 59 01/10/2014 1008 EDT Temperature 35.4 ??C (95.8 ??F) 01/10/2014 1008 EDT Respiratory Rate 12 01/10/2014 1008 EDT Oxygen Saturation - - Inhaled Oxygen Concentration - - Weight 92.5 kg (204 lb) 01/10/2014 1008 EDT Height 152.4 cm (5') 01/10/2014 1008 EDT Body Mass Index 39.84 01/10/2014 1008 EDT documented in this encounter Functional Status Cognitive Status Response Date of Assessm ent Because of a physical, menta l, or emotional condition, do you have serious difficulty concentrating, remembering, or making decisions? (5 years old or older) Yes 07/17/2013 documented as of this encounter Discharge Diagnoses Diagnosis 721.0 CERVICAL SPONDYLOSIS[ICD-9-CM] 723.1 CERVICALGIA[ICD-9-CM] 721.3 LUMBOSACRAL SPONDYLOSIS[ICD-9-CM] 722.52 LUMB/LUMBOSAC DISC DEGEN[ICD-9-CM] 724.2 LUMBAGO[ICD-9-CM] 716.98 ARTHROPATHY NOS-OTHER SITE[ICD-9-CM] documented in this encounter Ordered Prescriptions Prescription Sig Dispensed Refills Start Date End Da te nabumetone (RELAFEN) 500 mg tablet Take 2 Tabs by mouth daily 2 tabs bid with food.. 60 Tab 2 01/10/2014 01/10/2014 documented in this encounter Progress Notes * Abundio Cormier - 01/10/2014 1118 EDT PT NAME: Cherelle Husain : 1960 DOS: 01/10/2014 INTERVAL HISTORY: Ms. Husain presents for follow-up regarding evaluation of her back pain. She hasaxial lbp and was seen by Marylou Gentile for assessment. She referred the patient for diagnostic injections to assess for facet generated lumbar pain. She has arthropathy L4-5 and L5-S1 b/l on imaging. We performed dx facet injections in October which resulted in very marginal results of 60% relief for 1.75 hrs. He pain is unchanged and she continues to describe it as excruciating and very limiting.She denies fever, chills, night sweats, bleeding diathesis, or changes in strength and/or sensation. No acute changes in bowel or bladder function. EXAMINATION Blood pressure 135/68, pulse 59, temperature 35.4 ??C (95.8 ??F), temperature source Tympanic, resp. rate 12, height 152.4 cm (60), weight 92.534 kg (204 lb), last menstrual period 03/09/2010. General: awake, alert, cooperative, no apparent distress. appropriate. Skin: no rashes, bruises or petechiae noted Gait: uses a cane, slow ambulation Joints: no redness, warmth, or swelling of the joints Lumbar: positive for paraspinal tenderness LS flex: decreased LS ext: painful DIAGNOSIS: 1. Lumbosacral spondylosis without myelopathy 2. Chronic low back pain 3. Lumbar facet arthropathy Previous Injections: 10/2013 facet injection L4-5 and L5-S1 b/l 60% relief X 1 hr 45 mins 02/2013 LESI L5-S1 no relief 12/2012 facet injection C3-4 b/l no relief 06/2012 GOLDIE C5-6 no relief MEDICAL DECISION: Ms. Husain is an 53 y.o. year old female with excruciating back pain, unresponsive to conservativetreatment, and no success thus far by our evaluation. I simply cannot say whether her back pain is related to facet disease. This remains unclear because of many confounding factors, overlapping diagnoses, and her responses to testing. To better delineate the symptomatic pathology, i would like to order a CT-spect scan performing additional diagnostic injections or treatments. She asked about using stronger pain meds than hydrocodone. I advised that stronger opioids were unlikely to be a good lo ng term solution. She is taking meloxicam and does not think it helps. Her chart lists nsaids as anallergy, however she tells me this is essentially an aspirin induced asthma, and she has no problems with meloxicam or severla other anti- inflammatories. I suggest a trial of nabumetone in place of her mobic. If this worsens her asthma then discontinue. If not efficatious then discontinue. We will follow up after the ct-spect. 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 yes Is patient NPO? (Solids since midnight & liquids for 4 hrs) na Blood Thinners: Is patient on Blood Thinners? Yes, not sure doesn't make up her pill trays If yes, taking? mobic If stopped, who authorized stopping? Related comments: Infections: Any recent infections, fever of illnesses? no If on antibiotics, is it 7-10 days past the date of completion of antibiotics? no : (for females of child-bearing age) no Is there a chance current ? Other: documented in this encounter Procedure Notes * Jaimie Byrne RN - 01/13/2014 0956 EDT Procedure: Procedures documented in this encounter Miscellaneous Notes * Addendum Note - Abundio Cormier - 01/16/2014 1440 EDTAddended by: ABUNDIO CORMIER on: 01/16/2014 14:40 Modules accepted: Orders * Addendum Note - Jaimie Byrne RN - 01/13/2014 1003 EDTAddended by: JAIMIE BYRNE on: 01/13/2014 10:03 Modules accepted: Orders documented in this encounter Plan of Treatment Not on file documented as of this encounter Procedures Procedure Name Priority Date/Time Associated Diagnosis Comments CT LUMBAR SPINE WO CONTRAST 02/04/2014 11:20 EDT NM INJECTION NO CHARGE 02/04/2014 8:36 EDT documented in this encounter Results * CT LUMBAR SPINE WO CONTRAST (02/04/2014 11:20 EDT) Anatomical Region Laterality Modality Other 02/04/2014 11:2 0 EDT 02/04/2014 13:23 EDT Narrative 02/04/2014 13:[address] LUMBAR SPINE WITHOUT CONTRAST February 04, 2014 Indication: Low back pain. Comparison: CT abdomen pelvis July 17, 2013 and MRI lumbar spine April 17, 2013. Technique: Axial noncontrast CT images of the lumbar spine were obtained with coronal and sagittal reformations. Findings: Significant scoliotic curvature is not appreciated. No laurence- or retrolisthesis is noted. Vertebral body heights are preserved. There is mild disc space narrowing at T12-L1 consistent with disc degeneration. This is not significantly changed from the previous MRI. There is mild multilevel facet degeneration most significant at L3-L4. T12-L1: No high-grade central spinal or neuroforaminal stenosis is noted. L1-L2: No high-grade central spinal or neuroforaminal stenosis is noted. L2-L3: No high-grade central spinal or neuroforaminal stenosis is noted. L3-L4: No high-grade central spinal or neuroforaminal stenosis is noted. L4-L5: No high-grade central spinal or neuroforaminal stenosis is noted. L5-S1: No high-grade central spinal or neuroforaminal stenosis is noted. There is trace atherosclerotic calcification demonstrated in the abdominal aorta and iliac arteries. Surgical clips are again demonstrated within the pelvis. Impression: 1. Mild disc degeneration at T12-L1. 2. Lumbar degenerative joint disease. 3. Aortoiliac atherosclerotic calcification. Procedure Note 02/04/2014 CT LUMBAR SPINE WITHOUT CONTRAST February 04, 2014 Indication: Low back pain. Comparison: CT abdomen pelvis July 17, 2013 and MRI lumbar spine April 17, 2013. Technique: Axial noncontrast CT images of the lumbar spine were obtained with coronal and sagittal reformations. Findings: Significant scoliotic curvature is not appreciated. No laurence- or retrolisthesis is noted. Vertebral body heights are preserved. There is mild disc space narrowing at T12-L1 consistent with disc degeneration. This is not significantly changed from the previous MRI. There is mild multilevel facet degeneration most significant at L3-L4. T12-L1: No high-grade central spinal or neuroforaminal stenosis is noted. L1-L2: No high-grade central spinal or neuroforaminal stenosis is noted. L2-L3: No high-grade central spinal or neuroforaminal stenosis is noted. L3-L4: No high-grade central spinal or neuroforaminal stenosis is noted. L4-L5: No high-grade central spinal or neuroforaminal stenosis is noted. L5-S1: No high-grade central spinal or neuroforaminal stenosis is noted. There is trace atherosclerotic calcification demonstrated in the abdominal aorta and iliac arteries. Surgical clips are again demonstrated within the pelvis. Impression: 1. Mild disc degeneration at T12-L1. 2. Lumbar degenerative joint disease. 3. Aortoiliac atherosclerotic calcification. Abundio Suly DO IMG CT ORDERABLES * NM INJECTION NO CHARGE (02/04/2014 8:36 EDT) Anatomical Region Laterality Modality Other 02/04/2014 8:36 EDT Narrative 02/04/2014 8:36 EDT Non Reportable Exam Procedure Note 02/04/2014 Non Reportable Exam Abundio Suly DO IMG NM ORDERABLES documented in this encounter Visit Diagnoses Diagnosis Lumbosacral spondylosis without myelopathy- Primary Chronic low back pain Lumbago Lumbar facet arthropathy Lumbosacral spondylosis without myelopathy Chronic neck pain Cervicalgia documented in this encounter Care Teams Hospital Librarian Relationship Specialty Start Date End Date Remedios Mehta MD [address] [place] [phone] PCP - General 02/19/09 01/04/15 documented as of this encounter
--- OUTSIDE RECORDS SUMMARY | 2024-06-24 02:17 | XMS_ITS | Encounter Summary ---
Author Organization [facility] Address [address] [place] [address] Care Team Providers Care Flight Operations Inspector Name Role Phone Remedios Mehta MD Primary Care Provider [phone] [phone] Reason for Visit * Reason Comments Other Encounter Details Date Type Department Care Team (Late st Contact Info) Description 01/14/[address] [address] Remedios Mehta MD [address] [place] [phone] Other Social History Tobacco Use Types [...] Dispensed Refills Start Date End Da te meloxicam (MOBIC) 7.5 mg tablet Take 1 Tab by mouth daily. 30 Tab 5 01/14/2014 03/06/2014 documented in this encounter Plan of Treatment Not on file documented as of this encounter Visit Diagnoses Not on filedocumented in this encounter Discontinued Medications Medication Sig Discontinue Reason Start Date End Da te meloxicam (MOBIC) 7.5 mg tabletIndications:Cervica l spondylosis without myelopathy,Arthropathy,Fi bromyalgia Take 1 Tab by mouth daily. Reorder 09/13/2013 01/14/2014 documented as of this encounter Care Teams Flight Operations Inspector Relationship Specialty Start Date End Date Remedios Mehta MD [address] [place] [phone] PCP - General 02/19/09 01/04/15 documented as of this encounter
--- OUTSIDE RECORDS SUMMARY | 2024-06-24 02:17 | XMS_ITS | Encounter Summary ---
Author Organization [facility] Address [address] [place] [address] Care Team Providers Care Shirt Sorter Name Role Phone Remedios Mehta MD Primary Care Provider [phone] -[phone] Reason for Visit * Reason Onset Date Comments Paperwork request 12/02/2013 Two separate f orms Encounter Details Date Type Department Care Team (Late st Contact Info) Description 12/02/[address] [address] Remedios Mehta MD [address] [place] [phone] Paperwork request (Two separate forms) Social History Tobacco Use Types Packs/Day Years [...] Miscellaneous Notes * Telephone Encounter - Brook Schroeder - 12/02/2013 0917 EST Received two separate disability claim forms directly from patient to be completed by Dr. Strong. Please contact patient upon completion of forms to determine where to send them or if she would liketo pick them up personally. Placed in [facility] folder. documented in this encounter Plan of Treatment Not on file documented as of this encounter Visit Diagnoses Not on filedocumented in this encounter Care Teams Shirt Sorter Relationship Specialty Start Date End Date Remedios Mehta MD [address] [place] [phone] PCP - General 02/19/09 01/04/15 documented as of this encounter
--- OUTSIDE RECORDS SUMMARY | 2024-06-24 02:17 | XMS_ITS | Encounter Summary ---
Author Organization [facility] Address [address] [place] [address] Care Team Providers Care Shuttle Final Inspector Name Role Phone Remedios Mehta MD Primary Care Provider [phone] [phone] Reason for Visit * Reason Onset Date Comments Advice Only 04/17/2014 Encounter Details Date Type Department Care Team (Late st Contact Info) Description 04/17/2014 Telephone [facility] Interventional Pain [address] [place], [place] [phone] Abundio Tubbs, DO [address] [place], [place] [phone] Advice Only Social History Tobacco Use Types Packs/Day Years [...] encounter Miscellaneous Notes * Telephone Encounter - Delia Lama RN - 04/17/2014 1619 EDT Message forwarded to Dr. Tubbs * Telephone Encounter - Jaimee Schroeder - 04/17/2014 1212 EDT Pt is moving to [place] and she is looking for a doctor in [facility]. Any ideas? documented in this encounter Plan of Treatment [...] on filedocumented in this encounter Care Teams Shuttle Final Inspector Relationship Specialty Start Date End Date Remedios Mehta MD [address] [place] [phone] PCP - General 02/19/09 01/04/15 documented as of this encounter
--- OUTSIDE RECORDS SUMMARY | 2024-06-24 02:17 | XMS_ITS | Encounter Summary ---
Author Organization [facility] Address [address] [place] [address] Care Team Providers Care Correctional Case Records Supervisor Name Role Phone Remedios Mehta MD Primary Care Provider +1 [phone] Reason for Visit * Reason Comments Back Pain low back pain Encounter Details Date Type Department Care Team (Latest Contact Info) Description 02/25/2014 9:45 EDT Office Visit [facility] Interventional Pain [address] [place], [place] [id number] Abundio Tubbs, DO [address] [facility] [address] [place] [address] Lumbosacral spondylosis without myelopathy (Primary Dx); Lumbar facet arthropathy; Chronic low back pain Social History Tobacco Use Types Packs/Day [...] Sign Reading Time Taken Comments Blood Pressure 124/66 02/25/2014 1044 EDT Pulse 59 02/25/2014 1044 EDT Temperature 36.5 ??C (97.7 ??F) 02/25/2014 0948 EDT Respiratory Rate 16 02/25/2014 1044 EDT Oxygen Saturation - - Inhaled Oxygen Concentration - - Weight 95.3 kg (210 lb) 02/25/2014 0948 EDT Height 152.4 cm (5') 02/25/2014 0948 EDT Body Mass Index 41.01 02/25/2014 0948 EDT documented in this encounter Functional Status [...] this encounter Patient Instructions * Patient Instructions* Georgie Foster - 02/25/2014 10:28 EDT [facility] [address] [address] Patient Instructions You have had your left lumbar Facet [...] any questions about your block, please call Georgie Foster Patient Education Topic: left lumbar facet steroid injection Method: Handout and Verbal Taught to: Patient Barriers: None Outcomes: independent and verbalized understanding Signature: Georgie Foster documented in this encounter Progress Notes * Abundio Tubbs - 02/25/2014 0951 EDT PT NAME: Cherelle Husain : 1960 DOS: 02/25/2014 WORKDAY DIRECTOR: Abundio Tubbs DO AMUSEMENT PARK RIDE MECHANIC: N/A PROCEDURE: Facet injections; left L3-L4 DIAGNOSIS: 1. Lumbosacral spondylosis without myelopathy 2. Lumbar facet arthropathy 3. Chronic low back pain INTERVAL HISTORY: Ms. Husain presents for follow-up. She has axial lbp and was seen initially at the request o Marylou Gentile for diagnostic injections to assess for facet generated lumbar pain. She has arthropathy L4-5 and L5-S1 b/l on imaging. Her first dx facet injections result were marginal, 60%relief for 1.75 hrs. The pain is still present and she continues to describe it as excruciating andvery limiting in terms of perfomring daily activities. Since the last procedure, she had a new CT-spect scan and was trying a nabumetone. She denies fever, chills, night sweats, bleeding diathesis, or changes in strength and/or sensation. No acute changes in bowel or bladder function. EXAMINATION Blood pressure 107/71, pulse 67, temperature 36.5 ??C (97.7 ??F), temperature source Tympanic, resp. rate 16, height 152.4 cm (60), weight 95.255 kg (210 lb), last menstrual period 03/09/2010. General: awake, [...] conservativetreatment. Based on the ctspect scan we will perform a dx injection at the left L3-4 facet joint. She has some claudication symptoms which do not appear to neurogenic, therefore she may need a vascular evaluation. We can look at her cervical spine findings for possible intervention if needed after the lumbar pain is addressed. PROCEDURE: The patient gave informed written consent [...] mls 0.5% Bupivacaine and 40 mg Depo-Medrol (1 ml). There were no paresthesias during needle placement and aspiration was negative at all times. The patient tolerated the procedure well, there were no apparent complications, and he was discharged in stable condition. Written and verbal discharge instructions were reviewed with the patient prior to discharge. Abundio Tubbs DO 02/25/2014 * Georgie Foster - 02/25/2014 0951 EDT [facility] Rooming Note Does patient have a Life Insurance Agent? yes Is patient NPO? (Solids since midnight [...] as of this encounter Visit Diagnoses Diagnosis Lumbosacral spondylosis without myelopathy- Primary Lumbar facet arthropathy Lumbosacral spondylosis without myelopathy Chronic low back pain Lumbago documented in this encounter Care Teams Correctional Case Records Supervisor Relationship Specialty Start Date End Date Remedios Mehta MD [address] [place] [phone] PCP - General 02/19/09 01/04/15 documented as of this encounter
--- OUTSIDE RECORDS SUMMARY | 2024-06-24 02:17 | XMS_ITS | Encounter Summary ---
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 Encounter Details Date Type Department Care Team (Latest Contact Info) Description 11/22/2013 7:45 EST Office Visit [facility] Interventional Pain [address] [place], [place] [id number] Abundio Tubbs, DO [address] [place] [address] [address] [place] [address] Lumbosacral spondylosis without myelopathy (Primary Dx); Chronic low back pain; Myalgia and myositis Social History Tobacco Use Types Packs/Day Years [...] Sign Reading Time Taken Comments Blood Pressure 140/85 11/22/2013 0915 EST Pulse 65 11/22/2013 0915 EST Temperature 35.9 ??C (96.6 ??F) 11/22/2013 0758 EST Respiratory Rate 17 11/22/2013 0915 EST Oxygen Saturation - - Inhaled Oxygen Concentration - - Weight 92.5 kg (204 lb) 11/22/2013 0758 EST Height 152.4 cm (5') 11/22/2013 0758 EST Body Mass Index 39.84 11/22/2013 0758 EST documented in this encounter Functional Status Cognitive Status Response Date of Assessm ent Because of a physical, menta l, or emotional condition, do you have serious difficulty concentrating, remembering, or making decisions? (5 years old or older) Yes 07/17/2013 documented as of this encounter Discharge Diagnoses Diagnosis 721.3 LUMBOSACRAL SPONDYLOSIS[ICD-9-CM] 724.2 LUMBAGO[ICD-9-CM] documented in this encounter Patient Instructions * Patient Instructions* Mak Soares RN - 11/22/2013 9:07 EST [facility] [place] [address] Patient Instructions You have had your bilateral lumbar Facet Steroid Injection. The purpose of [...] functions, please call our office at once. Today please stay busy/active doing things that would normally cause you pain. Keep track of your hours of relief and your percentage of relief today (0 to 100 , 0 = no relief and 100% being total relief). Separate the pressure and tightness that we caused you from your regular pain and see what your relief is. Call us back tomorrow with this information. Procedure end time: 09:10 am Pain relief start time Returned to baseline pain Instructions for follow-up Patient Education Topic: Method: Handout and Verbal Taught to: Patient Barriers: None Outcomes: verbalized understanding Signature:MAK SOARES RN If you have any questions about your block, please call documented in this encounter Progress Notes * Barney Zhang MD - 11/22/2013 0910 EST Patient Name: Cherelle Husain : 1960 Date of Service: 11/22/2013 Overseer Kosher Kitchen: Barney Zhang MD Survey Chief: None Procedure: Diagnostic lumbar facet joint injection at bilateral L4-L5 and L5-S1 Interval History: Mrs. Husain presents at the request of Marylou Gentile for evaluation and treatment of her chronic back pain. The pain is primarily localized to the bilateral low back and radiates to the right thigh greater than left posterior surface of the thigh. This pain has been present for many year(s) and is described as sharp in character. The average pain intensity is 7/10 and is aggravated by sitting, standing and walking. Nothing alleviates the pain. The patient???s chronic pain has negatively affected her activities of daily living. Therapeutic measures tried in the past include nsaids, lyrica, hydrocodone acetaminophen and PT. Imaging: MRI lumbar spine: At L2-L3 and L3-L4 there is no focal herniation, central canal stenosis, or foraminal impingement. At L4-L5 there may be mild disc bulge and facet hypertrophy without focal herniation or central canal stenosis. No foraminal impingement is present. At L5-S1 there is no focal herniation, or central canal stenosis. Mild narrowing of the right neural foramen is present. Allergies: Allergies Allergen Reactions ??? Latex, Natural Rubber [...] Wheat Containing Prod Constipation Review of Systems: Negative for any fever, chills, nausea/vomiting, headaches, chest pain, palpitations, shortness of breath, bladder/bowel incontinence. No easy bruising, bleeding, anti-coagulation or known recent infections. Physical Examination: Vital signs: BP 115/67 Pulse 65 Temp(Src) 35.9 ??C (96.6 ??F) (Tympanic) Resp 16 Ht 152.4 cm (60) Wt 92.534 kg (204 lb) BMI 39.84 kg/m2 LMP 03/09/2010 Patient is alert, oriented x 3 and conversant. Able to stand and ambulate with great difficulty. Gait is antalgic. Cranial nerve exam is normal Cardiac reveal regular rate and rhythm. Lungs are clear to auscultation. Abdomen is soft and nontender. Lumbar spine is very tender to palpation. Examination of the lower extremities reveal normal strength. Patellar and achilles reflexes are 2+ bilaterally. No gross sensory deficits. Assessment: 1. Lumbosacral spondylosis without myelopathy 2. Chronic low back pain 3. Myalgia and myositis Plan: Proceed with diagnostic and possibly therapeutic facet joint injections at bilateral L4-L5 and L5-S1 Follow up: Please call us tomorrow with an update of the relief obtained after the diagnostic portion of this procedure. Return to clinic as needed for routine follow up Procedure: The patient gave informed written consent to proceed with this procedure following a detailed discussion of the risks and benefits associated with facet joint injections. Site was marked prior to starting the procedure. The patient was then placed in the prone position, the skin over the area was prepped with chlorhexadine, and the site was draped with sterile towels. Strict sterile technique wasmaintained throughout the procedure. A gillespie moment was performed with full staff present to identify the patient, verify the procedure being performed, and review allergies. Fluoroscopy was used to identify the anatomy and align the facet joints. The skin and subcutaneous tissue over the bilateral L4-L5 and L5-S1 facet joints was anesthetized with 2% lidocaine. A 22 gauge 5.0 inch Quincke needle was inserted under fluoroscopic guidance using coaxial technique into eachof the aforementioned facet joints. After negative aspiration, each joint was injected with 1.0 ml of 0.5% bupivacaine and 20 mg Depo-Medrol at each facet joint. There were no paresthesias during needle placement and aspiration was negative at all times. The patient tolerated the procedure well, there were no apparent complications, and she was discharged in stable condition. Written and verbal discharge instructions were reviewed with the patient prior to discharge. Kimo Longo MD Anesthesia Residient, CA-2 Attending attestation: I saw and examined the patient with the resident/fellow. I agree with the findings and plan of care documented in the resident's/fellow's note. In addition, I was present and participated during the entire procedure. Abundio Tubbs DO 11/22/2013 * Abundio Tubbs - 11/22/2013 0845 EST I saw this patient with Kimo Longo MD, Anesthesia Residient, CA-2. She is being seen at the request of Marylou SIFUENTES who is evaluating her chronic neck and low back pain. Today we are performing facet injections (first) at L4-5 and L5-S1 b/l. Review of injections: 02/2013 L5-S1 YANET-no relief 06/2012 GOLDIE C5-6-no relief 12/2012 C3-4 b/l facet injections-no relief Abundio Tubbs DO 11/22/2013 * Dayna Tiwari RN - 11/22/2013 0802 EST [facility] Rooming Note Does patient have a Flight Test Data Acquisition Technician? yes Is patient NPO? (Solids since midnight & liquids for 4 hrs) na Blood Thinners: Is patient on Blood Thinners? no If yes, taking? If stopped, who authorized stopping? Related comments: Infections: Any recent infections, fever of illnesses? no If on antibiotics, is it 7-10 days past the date of completion of antibiotics? : (for females of child-bearing age) Is there a chance current ? Other: documented in this encounter Procedure Notes * Abundio Tubbs - 11/22/2013 0919 EST Procedure: Procedures documented in this encounter Plan of Treatment Not on file documented as of this encounter Visit Diagnoses Diagnosis Lumbosacral spondylosis without myelopathy- Primary Chronic low back pain Lumbago Myalgia and myositis Mylagia and myositis, unspecified documented in this encounter Care Teams Chef Kitchen Manager Relationship Specialty Start Date End Date Remedios Mehta MD [address] [place] [phone] PCP - General 02/19/09 01/04/15 documented as of this encounter
--- OUTSIDE RECORDS SUMMARY | 2024-06-24 02:17 | XMS_ITS | Encounter Summary ---
Author Organization [facility] Address [address] [place] [address] Care Team Providers Care Buck Swamper Name Role Phone Remedios Mehta MD Primary Care Provider [phone] Reason for Visit * Reason Onset Date Comments Medications Refill 12/20/2013 Encounter Details Date Type Department Care Team (Late st Contact Info) Description 12/20/[address] [address] Remedios Mehta MD [address] [place] [phone] Medications Refill Social History Tobacco Use [...] Dispensed Refills Start Date End Da te omeprazole (PRILOSEC) 20 mg capsuleIndications:GERD (gastroesophageal reflux disease),Cough Take 1 Cap by mouth 2 times daily. 60 Cap 5 12/20/2013 09/24/2018 documented in this encounter Miscellaneous Notes * Telephone Encounter - Brook Weathers - 12/20/2013 1119 EST Medication(s) Requested: Omeprazole [facility]: [facility] Last Refill Date: 06/05/13 #60 5 refills Last Visit Date: 09/13/13 Next Visit Date: 12/23/13 Is patient out of medication? Yes - She is going out of town at 4:00 pm today. Brook Weathers 12/20/2013 11:19 documented in this encounter Plan of Treatment Not on file documented as of this encounter Visit Diagnoses Diagnosis GERD (gastroesophageal reflux disease)- Primary Esophageal reflux Cough documented in this encounter Discontinued Medications Medication Sig Discontinue Reason Start Date End Da te omeprazole (PRILOSEC) 20 mg capsuleIndications:GERD (gastroesophageal reflux disease),Cough Take 1 Cap by mouth 2 times daily. Reorder 06/05/2013 12/20/2013 documented as of this encounter Care Teams Buck Swamper Relationship Specialty Start Date End Date Remedios Mehta MD [address] [place] [phone] PCP - General 02/19/09 01/04/15 documented as of this encounter
--- OUTSIDE RECORDS SUMMARY | 2024-06-24 02:17 | XMS_ITS | Encounter Summary ---
Author Organization [facility] Address [address] [place] [address] Care Team Providers Care Field Crop Harvest Contractor Name Role Phone Remedios Mehta MD Primary Care Provider [phone] None, Provider Primary Care Provider German PabonC Primary Care Provider [phone] Elly Ling NP Primary Care Provider [phone] Reason for Visit * Reason Comments Other Encounter Details Date Type Department Care Team (Late st Contact Info) Description 01/15/[address] [address] Remedios Mehta MD [address] [place] [phone] Other Social History Tobacco Use Types [...] Telephone Encounter - Nadia Keith RN - 01/15/2014 0854 EDT meloxicam refill request refused was reordered yesturday documented in this encounter Plan of Treatment Not on file documented as of this encounter Visit Diagnoses Not on filedocumented in this encounter Additional Health Concerns Infection Onset Date Last Indicated Resolved Time Rule-Out C. difficile 2021 04/16/20212020 13:40 EDT C. difficile 04/16/2021 04/16/2021 06/15/2021 22:1 5 EDT documented as of this encounter Care Teams Field Crop Harvest Contractor Relationship Specialty Start Date End Date Remedios Mehta MD [address] [place] [phone] PCP - General 02/19/09 01/04/15 None, Provider PCP - General 01/05/15 09/23/18 German Garzon, SPARKLEC [address] [place] [phone] PCP - General 09/28/18 05/29/22 Elly Ling NP [address] [place] [address] PCP - General Family Medicine - Primary Care 05/30/22 documented as of this encounter
--- OUTSIDE RECORDS SUMMARY | 2024-06-24 02:17 | XMS_ITS | Encounter Summary ---
Author Organization [facility] Address [address] [place] [address] Care Team Providers Care Nascar Pit Crew Person Name Role Phone Remedios Mehta MD Primary Care Provider [phone] Encounter Details Date Type Department Care Team (Latest Contact Info) Description 04/18/2014 10:01 EDT - 04/18/2014 23:59 EDT Hospital Encounter [address] [address] Remedios Mehta MD [address] [place] [phone] Discharge Disposition: Home or Self Care Social [...] as of this encounter Discharge Diagnoses Diagnosis V72.5 RADIOLOGICAL EXAM NEC[ICD-9-CM] documented in this encounter Medications at Time [...] bowel syndrome),GERD (gastroesophageal reflux disease) Instill 1 Fordyce into both nostrils daily. 1 Bottle 5 [...] 3 times daily. 90 Cap 3 03/06/2014 CYMBALTA 60 mg capsule TAKE ONE CAPSULE [...] for Pain. 116 Tab 0 04/21/2014 09/24/2018 ketoconazole (NIZORAL) 2 % creamIndications:Rash Apply topically daily. Apply to affect area(s) as directed. 1 Tube 1 02/17/2010 04/18/2021 metoprolol (LOPRESSOR) 25 mg tabletIndications:Hyper tension Take 1 Tab by mouth 2 times daily. 180 Tab 4 06/05/2013 09/24/2018 nabumetone (RELAFEN) 500 mg tablet Take 2 Tabs by mouth daily 2 tabs bid with food.. 60 Tab 2 04/18/2014 04/18/2021 omeprazole (PRILOSEC) 20 mg capsuleIndications:GERD (gastroesophageal reflux disease),Cough Take 1 Cap by mouth 2 times daily. 60 Cap 5 12/20/2013 09/24/2018 ondansetron (ZOFRAN-ODT) 4 mg disintegrating tablet Take 1 Tab by mouth every 6 hours as needed for Nausea. 12 Tab 0 06/14/2013 09/24/2018 polyethylene glycol (GLYCOLAX) 17 gram/dose powderIndications:IC (irritable colon) Take 17 g by mouth daily. 1 Bottle 3 12/23/2013 10/17/2014 traZODone (DESYREL) 100 mg tablet Take 1-2 Tabs by mouth at bedtime as needed for Sleep. 56 Tab 3 01/13/2014 05/10/2014 zafirlukast (ACCOLATE) 20 mg tablet Take 1 Tab by mouth 2 times daily. 180 Tab 5 06/05/2013 04/18/2021 documented as of this encounter Discharge Disposition Disposition Code Departure Means Destination Home or Self [facility]dc documented in this encounter Plan of Treatment [...] on filedocumented in this encounter Care Teams Nascar Pit Crew Person Relationship Specialty Start Date End Date Remedios Mehta MD [address] [place] [phone] PCP - General 02/19/09 01/04/15 documented as of this encounter
--- OUTSIDE RECORDS SUMMARY | 2024-06-24 02:17 | XMS_ITS | Encounter Summary ---
Author Organization [facility] Address [address] [place] [address] Care Team Providers Care Servicing Rep Name Role Phone Remedios Mehta MD Primary Care Provider [phone] Reason for Visit * Reason Comments Community Health Team Encounter Details Date Type Department Care Team (Late st Contact Info) Description 12/25/2013 Community Health Team [facility] [address] [facility], [address] [place], [place] [phone] Yaneth Alberts, RD [address] [place] [address] Social History Tobacco Use Types [...] encounter Progress Notes * Shilpi Forte - 12/25/2013 1343 EST ..Received referral to Community Health Team. Patient is scheduled to meet with Yaneth Alberts RD on January 27 at 11:00 at [facility]. documented in this encounter Plan of Treatment Not on file documented as of this encounter Visit Diagnoses Not on filedocumented in this encounter Care Teams Servicing Rep Relationship Specialty Start Date End Date Remedios Mehta MD [address] [place] [phone] PCP - General 02/19/09 01/04/15 documented as of this encounter
--- OUTSIDE RECORDS SUMMARY | 2024-06-24 02:17 | XMS_ITS | Encounter Summary ---
Author Organization [facility] Address [address] [place] [address] Care Team Providers Care Mattress Inspector Name Role Phone Remedios Mehta MD Primary Care Provider [phone] Reason for Visit * Reason Comments Other Encounter Details Date Type Department Care Team (Late st Contact Info) Description 01/17/[address] [address] Remedios Mehta MD [address] [place] [phone] Other Social History Tobacco Use Types [...] on filedocumented in this encounter Care Teams Mattress Inspector Relationship Specialty Start Date End Date Remedios Mehta MD [address] [place] [phone] PCP - General 02/19/09 01/04/15 documented as of this encounter
--- OUTSIDE RECORDS SUMMARY | 2024-06-24 02:17 | XMS_ITS | Encounter Summary ---
Author Organization [facility] Address [address] [place] [address] Care Team Providers Care Cellular Biologist Name Role Phone Remedios Mehta MD Primary Care Provider [phone] Encounter Details Date Type Department Care Team (Late st Contact Info) Description 12/04/2013 Orders Only [address] [phone] Argelia Farias RN Chronic back pain (Primary Dx); Other and unspecified hyperlipidemia Social History Tobacco Use Types Packs/Day Years [...] documented as of this encounter Results * LIPID PROFILE (INCLUDES CHOLESTEROL, TRIGLYCERIDES, HDL, LDL) (12/17/2013 8:53 EST) Cholesterol 261 mg/dl [facility] Comment: Desirable:<200 Borderline High:200-239 High:>vx=283 Triglycerides 220 mg/dl [facility] Comment: Normal:<150 Borderline High:150-199 High:200-499 Very High:>jl=122 HDL 38 mg/dl [facility] Comment: Low:<40 Normal:40-60 Desirable: >60 LDL, Calculated 179 mg/dl [facility] SAUC[facility]A [facility] Comment: Optimal:<100 Near Optimal:100-129 Borderline High:130-159 High:160-189 Very High:>db=346 Chol/HDL Ratio 6.9 [facility] Fasting? YES [facility] Non HDL Cholesterol 223 mg/dl [facility] Comment: Desirable:<130 Borderline:130-159 High: 160-189 Very High: >ci=829 Blood specimen (specimen) 12/17/2013 8:53 EST 12/17/2013 12:37 EST Remedios Mehta MD CHEMISTRY & BLOOD GAS ORDERABLES Performing Organization Address City/State/[facility] Co de Phone Number [facility] [address] [place] [address] documented in this encounter Visit Diagnoses Diagnosis Chronic back pain- Primary Backache, unspecified Other and unspecified hyperlipidemia documented in this encounter Care Teams Cellular Biologist Relationship Specialty Start Date End Date Remedios Mehta MD [address] [place] [phone] PCP - General 02/19/09 01/04/15 documented as of this encounter
--- OUTSIDE RECORDS SUMMARY | 2024-06-24 02:17 | XMS_ITS | Encounter Summary ---
Author Organization [facility] Address [address] [place] [address] Care Team Providers Care Medical Appointment Clerk Name Role Phone Remedios Mehta MD Primary Care Provider [phone] Reason for Visit * Reason Onset Date Comments Results 11/25/2013 lumbar facet Encounter Details Date Type Department Care Team (Late st Contact Info) Description 11/25/[address] [facility] Interventional Pain [address] [place], [place] [phone] Delia Lama, RN [address] [place] [address] Results (lumbar facet ) Social History Tobacco Use Types Packs/Day Years [...] Telephone Encounter - Delia Lama RN - 11/25/2013 1618 EST Date and type of procedure: 11/22 facet Provider:Suly/Medical Student Hours of relief:1 hour 45 mins. % of relief: 60% relief Next appointment: pt. To f/u with ahari Will call here when steroid wears off. documented in this encounter Plan of Treatment Not on file documented as of this encounter Visit Diagnoses Not on filedocumented in this encounter Care Teams Medical Appointment Clerk Relationship Specialty Start Date End Date Remedios Mehta MD [address] [place] [phone] PCP - General 02/19/09 01/04/15 documented as of this encounter
--- OUTSIDE RECORDS SUMMARY | 2024-06-24 02:17 | XMS_ITS | Encounter Summary ---
Author Organization [facility] Address [address] [place] [address] Care Team Providers Care Motorcoach Operator Name Role Phone Remedios Mehta MD Primary Care Provider +1 [phone] Reason for Visit * Reason Comments Follow-up Fibromyalgia Encounter Details Date Type Department Care Team (Late st Contact Info) Description 12/02/2013 10:20 EST Office Visit [facility] Rheumatology & Immunology - [facility] [address] [place], [place] [id number] Yovana Callejas MD [address] [place] [address] [phone] Pain of right leg (Primary Dx); Cervical spondylosis without myelopathy; Arthropathy; Fibromyalgia Social History Tobacco Use Types Packs/Day Years [...] Sign Reading Time Taken Comments Blood Pressure 138/80 12/02/2013 1041 EST Pulse 72 12/02/2013 1041 EST Temperature - - Respiratory Rate - - Oxygen Saturation - - Inhaled Oxygen Concentration - - Weight 88 kg (194 lb) 12/02/2013 1041 EST Height 152 cm (4' 11.84) 12/02/2013 1041 EST Body Mass Index 38.09 12/02/2013 1041 EST documented in this encounter Functional Status Cognitive Status Response Date of Assessm ent Because of a physical, menta l, or emotional condition, do you have serious difficulty concentrating, remembering, or making decisions? (5 years old or older) Yes 07/17/2013 documented as of this encounter Discharge Diagnoses Diagnosis 729.5 PAIN IN LIMB[ICD-9-CM] 721.0 CERVICAL SPONDYLOSIS[ICD-9-CM] 716.90 ARTHROPATHY NOS-UNSPEC[ICD-9-CM] 729.1 MYALGIA AND MYOSITIS NOS[ICD-9-CM] documented in this encounter Patient Instructions * Patient Instructions* Yovana Callejas MD - 12/02/2013 11:10 EST Try Lyrica for knee pain and joint pain Start with one pill at night for two to three days and then increase to twice a day. documented in this encounter Ordered Prescriptions Prescription Sig Dispensed Refills Start Date End Da te pregabalin (LYRICA) 25 mg capsule Take 2 Caps by mouth 2 times daily. 60 Cap 5 12/02/2013 12/17/2013 documented in this encounter Progress Notes * Yovana Callejas MD - 12/02/2013 1150 EST Chief Complaint Patient presents with ??? Follow-up Fibromyalgia Patient is in here and followup for fibromyalgia. SUBJECTIVE: She has been having a lot of terrible pain. She was going to move to the [facility]; however, this deal has fallen through so she is remaining around. Had increased back pain and had a number of steroid injections. She is not sure they have worked yet. She feels achy and sore all over. At our last visit, she was complaining of more pain and we had suggested a trial of Lyrica. She became concerned it was the same as Cymbalta and rather than calling, just did not take the medicine. She states her feet get cold and blue sometimes when she is on them for a while, worse in the cold weather. She has had some splitting of the fingernails and this concerns here. Her 12 point review of systems is otherwise remarkable for increased stress and anxiety. No changesin skin other than a bit of dryness, stable asthma conditions and no additional complaints. Past Medical History Diagnosis Date ??? Fibromyalgia [...] needed for Wheezing. 1 Box 1 ??? azithromycin (ZITHROMAX) 250 mg tablet Take 2 tablets (500 mg) on day 1, followed by 1 tablet (250 mg) once daily on days 2 through 5. 6 Tab 0 ??? budesonide-formoterol HFA (SYMBICORT) 80-4.5 mcg/actuation HFA [...] (FLONASE) 50 mcg/actuation nasal spray Instill 1 [place] into both nostrils daily. 1 Bottle 5 ??? HYDROcodone-acetaminophen (NORCO) 10-325 mg per tablet Take 1 Tab by mouth every 6 hours as needed for Pain. 116 Tab 1 ??? ketoconazole (NIZORAL) 2 % cream Apply topically daily. Apply to affect area(s) as directed. 1 Tube 1 ??? loratadine (CLARITIN) 10 mg tablet Take 1 Tab by mouth daily. 90 Tab 1 ??? lovastatin (MEVACOR) 10 mg tablet Take 1 Tab by [...] Soy Constipation ??? Wheat Containing Prod Constipation History Substance Use Topics ??? Smoking status: Former Smoker -- 1.00 packs/day for 20 years Types: Cigarettes Quit date: 04/23/1996 ??? Smokeless tobacco: Never Used Comment: quit 20+ yr ago ??? Alcohol Use: Yes Comment: very occasional OBJECTIVE: She is pleasant and well appearing. BP 138/80 Pulse 72 Ht 152 cm (59.84) Wt 87.998 kg (194 lb) BMI 38.09 kg/m2 LMP 03/09/2010 Eyes are unremarkable. Skin: Small scaly area on the lateral malleolus, possibly dry skin. Nails have some ridging but no pitting. Elbows unremarkable. Joint examination: Degenerative changes over the DIPs the PIPs. Myofascial tender points in the upper or lower extremities. Feet have cool toes with no digital ulcers. Metatarsals are mildly tender. Myofascial tender points are prominent in the left and right medial knees with degenerative changes. IMPRESSION: 1. Fibromyalgia. 2. Underlying osteoarthritis. 3. Previous treatments aimed at possible psoriatic arthritis ineffective. No indication for continuation of these treatments. PLAN: 1. Encouraged her to retry Lyrica. I reviewed that it can safely be used with Cymbalta and that sheshould call if she has any questions. 2. Suggested she try 25 mg at night as it may help her burning pain. Did review it is in the same family as gabapentin. She had previously taken gabapentin and felt it was sedating. If she is experiencing untoward effects, she will stop the Lyrica as reason for prescribing is to improve pain. 3. The patient had asked for a hydrocodone refill, however, has been receiving this medication fromher primary care provider. She states she has been confused about who fills it. Looking back, it looks like for the past 3 years, all hydrocodone prescriptions have come from her PCP, so I suggest she contact that office to avoid confusion. No orders of the defined types were placed in this encounter. Med Orders Placed This Visit and Additions to the Medication List Medications ??? pregabalin (LYRICA) 25 mg capsule Sig: Take 2 Caps by mouth 2 times daily. Dispense: 60 Cap Refill: 5 documented in this encounter Plan of Treatment Not on file documented as of this encounter Visit Diagnoses Diagnosis Pain of right leg- Primary Pain in limb Cervical spondylosis without myelopathy Arthropathy Arthropathy, unspecified, site unspecified Fibromyalgia Mylagia and myositis, unspecified documented in this encounter Discontinued Medications Medication Sig Discontinue Reason Start Date End Da te pregabalin (LYRICA) 25 mg capsule Take 2 Caps by mouth 2 times daily. Reorder 09/30/2013 12/02/2013 documented as of this encounter Care Teams Motorcoach Operator Relationship Specialty Start Date End Date Remedios Mehta MD [address] [place] [phone] PCP - General 02/19/09 01/04/15 documented as of this encounter
--- OUTSIDE RECORDS SUMMARY | 2024-06-24 02:17 | XMS_ITS | Encounter Summary ---
Author Organization [facility] Address [address] [place] [address] Care Team Providers Care Surg Nurse Name Role Phone Remedios Mehta MD Primary Care Provider [phone] [phone] Reason for Visit * Reason Onset Date Comments Pharmacy 12/17/2013 LYRICA Encounter Details Date Type Department Care Team (Late st Contact Info) Description 12/17/2013 Telephone [facility] Rheumatology & Immunology - [facility] [address] [place] [address] Yovana Callejas MD [address] [place] [phone] Pharmacy (LYRICA) Social History Tobacco Use Types Packs/Day Years [...] times daily. 60 Cap 5 12/17/2013 03/06/2014 documented in this encounter Miscellaneous Notes * Telephone Encounter - Yovana Callejas MD - 12/17/2013 1242 EST Order ok. * Telephone Encounter - Tiffanie Herrmann, RON - 12/17/2013 0946 EST Pt 's insurance is requesting order for Lyrica, 50 mg twice a day vs 2-25 mg tablets twice a day. Okay? See pended order. * Telephone Encounter - Tania Roberto - 12/17/2013 0937 EST Per Shannon at [facility] pt's insurance is requesting 50 mg LYRICA twice a day rather than two 25 mg LYRICA twice a day. documented in this encounter Plan of Treatment Not on file documented as of this encounter Visit Diagnoses Not on filedocumented in this encounter Discontinued Medications Medication Sig Discontinue Reason Start Date End Da te pregabalin (LYRICA) 25 mg capsule Take 2 Caps by mouth 2 times daily. Dose adjustment 12/02/2013 12/17/2013 documented as of this encounter Care Teams Surg Nurse Relationship Specialty Start Date End Date Remedios Mehta MD [address] [place] [phone] PCP - General 02/19/09 01/04/15 documented as of this encounter
--- OUTSIDE RECORDS SUMMARY | 2024-06-24 02:17 | XMS_ITS | Encounter Summary ---
Author Organization [facility] Address [address] [place] [address] Care Team Providers Care Shake Maker Name Role Phone Remedios Mehta MD Primary Care Provider [phone] [phone] Reason for Visit * Reason Onset Date Comments Results 02/26/2014 Encounter Details Date Type Department Care Team (Late st Contact Info) Description 02/26/2014 Telephone [facility] Interventional Pain [address] [place], [place] [phone] Abundio Tubbs, DO [address] [facility] [address] [place], [place] [phone] Results Social History Tobacco Use Types Packs/Day [...] encounter Miscellaneous Notes * Telephone Encounter - Charlette Donis RN - 02/26/2014 1548 EDT Date and type of procedure: 02/25/14 Facet injections; left L3-L4 Provider: Suly Hours of relief: 29+ % of relief: 90-95% Next appointment: 04/22/14 * Telephone Encounter - Katelyn Da Silva - 02/26/2014 1510 EDT 29 + STARTED AT 90-95% NOW DOWN40% documented in this encounter Plan of Treatment Not on file documented as of this encounter Visit Diagnoses Not on filedocumented in this encounter Care Teams Shake Maker Relationship Specialty Start Date End Date Remedios Mehta MD [address] [place] [phone] PCP - General 02/19/09 01/04/15 documented as of this encounter
--- OUTSIDE RECORDS SUMMARY | 2024-06-24 02:17 | XMS_ITS | Encounter Summary ---
Author Organization [facility] Address [address] [place] [address] Care Team Providers Care Briquette Operator Name Role Phone Remedios Mehta MD Primary Care Provider [phone] [phone] Reason for Visit * Reason Onset Date Comments Medications Refill 03/06/2014 Encounter Details Date Type Department Care Team (Late st Contact Info) Description 03/06/2014 Telephone [facility] Rheumatology & Immunology - [facility] [address] [place], [place] [phone] Tiffanie Herrmann, RON Medications Refill Social History Tobacco Use Types [...] encounter Miscellaneous Notes * Telephone Encounter - Tiffanie Herrmann RN - 03/06/2014 1110 EDT Prescription for Lyrica, reflecting dose change, called in to pt's pharmacy. documented in this encounter Plan of Treatment Not on file documented as of this encounter Visit Diagnoses Not on filedocumented in this encounter Care Teams Briquette Operator Relationship Specialty Start Date End Date Remedios Mehta MD [address] [place] [phone] PCP - General 02/19/09 01/04/15 documented as of this encounter
--- OUTSIDE RECORDS SUMMARY | 2024-06-24 02:17 | XMS_ITS | Encounter Summary ---
Author Organization [facility] Address [address] [place] [address] Care Team Providers Care Sprayer Insecticide Name Role Phone Remedios Mehta MD Primary Care Provider [phone] -[phone] Reason for Visit * Reason Onset Date Comments Medications Refill 02/24/2014 Encounter Details Date Type Department Care Team (Late st Contact Info) Description 02/24/[address] [address] Remedios Mehta MD [address] [place] [phone] Medications Refill Social History Tobacco Use [...] on filedocumented in this encounter Care Teams Sprayer Insecticide Relationship Specialty Start Date End Date Remedios Mehta MD [address] [place] [phone] PCP - General 02/19/09 01/04/15 documented as of this encounter
--- OUTSIDE RECORDS SUMMARY | 2024-06-24 02:17 | XMS_ITS | Encounter Summary ---
Author Organization [facility] Address [address] [place] [address] Care Team Providers Care Medical Education Specialist Name Role Phone Remedios Mehta MD Primary Care Provider + -[phone] Encounter Details Date Type Department Care Team (Late st Contact Info) Description 02/12/2014 Community Health Team [address] [place] [address] Social History Tobacco Use Types [...] Progress Notes * Yaneth Alberts RD - 02/12/2014 4548 EDT Telephone call from pt with question regarding time of upcoming appt with RD. Time spent with pt: 5 minutes Referrals: n/a Follow-up: 02/17/14 @ [facility] @ 2pm [facility] Status: Active with [facility] RD Yaneth Alberts RD, CD Clinical Dietitian, [facility] documented in this encounter Plan of Treatment Not on file documented as of this encounter Visit Diagnoses Not on filedocumented in this encounter Care Teams Medical Education Specialist Relationship Specialty Start Date End Date Remedios Mehta MD [address] [place] [phone] PCP - General 02/19/09 01/04/15 documented as of this encounter
--- OUTSIDE RECORDS SUMMARY | 2024-06-24 02:17 | XMS_ITS | Encounter Summary ---
Author Organization [facility] Address [address] [place] [address] Care Team Providers Care Tiltrotor Crew Chief Name Role Phone Remedios Mehta MD Primary Care Provider +1 -[phone] Encounter Details Date Type Department Care Team (Latest Contact Info) Description 02/05/2014 8:23 EDT - 02/05/2014 8:59 EDT Hospital Encounter [facility] [address] [place] [address] Abundio Tubbs, DO [address] [place] [address] [address] [place] [address] Discharge Disposition: Home or Self Care Social [...] bowel syndrome),GERD (gastroesophageal reflux disease) Instill 1 [place] into both nostrils daily. 1 Bottle 5 [...] Code Departure Means Destination Home or Self Retirement documented in this encounter Plan of Treatment Not on file documented as of this encounter Visit Diagnoses Not on filedocumented in this encounter Care Teams Tiltrotor Crew Chief Relationship Specialty Start Date End Date Remedios Mehta MD [address] [place] [phone] PCP - General 02/19/09 01/04/15 documented as of this encounter
--- OUTSIDE RECORDS SUMMARY | 2024-06-24 02:18 | XMS_ITS | Encounter Summary ---
Author Organization [facility] Address [address] [place] [address] Care Team Providers Care Metal Furniture Panel Coverer Name Role Phone Keshawn Mehta MD Primary Care Provider +1 [phone] Encounter Details Date Type Department Care Team (Late st Contact Info) Description 06/11/2013 Results Only [facility] Laboratory Services - [facility] ([facility]) [address] [place] [phone] Kasandra Ambrose MD [address] [place] [phone] Social History Tobacco Use Types Packs/Day Years [...] decisions? (5 years old or older) Yes 04/15/2010 documented as of this encounter Plan of Treatment Not on file documented as of this encounter Procedures Procedure Name Priority Date/Time Associated Diagnosis Comments CYTOPATHOLOGY Routine 06/11/2013 0:00 EDT documented in this encounter Results * CYTOPATHOLOGY (06/11/2013 0:00 EDT) Pathologist [facility] Pathology Report: CYTOPATHOLOGY REPORT Reports generated via electronic interface contain original data; however they are lacking the format of the original report. Caution should be taken when reading/interpreti ng unformatted reports. Name: ? CHERELLE HUSAIN ? Accession #: ? [id number] : ? 1960 (Age: 53) ??F ?Collect Date: ? 06/11/2013 Location: ? [facility] ? Receive Date: ? 06/12/2013 Provider: ? KASANDRA AMBROSE MD Copy to: ?KESHAWN MEJIA MD ? CYTOLOGIC DIAGNOSIS: PERITONEAL WASHING, CYTOLOGIC EVALUATION: - ??No malignant cells identified. - ??No mesothelial cells identified despite reprocessing. - ??Entirely red blood cells present. Document reviewed and electronically signed by: ? ARIC EL MD [facility] Report Date: ??06/12/2013 17:18 By the signature above, the attending physician certifies that he/she has personally conducted a gross and/or microscopic examination of the described specimens and rendered or confirmed the above diagnosis. Specimen Type: ? Peritoneal Washing Clinical History: ? 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 ? Gross Description: ? 250 ccs of opaque fluid were received and processed by selective cellular enhancement technique. ? End of Report [facility] 06/11/2013 06/12/2013 8:0 4 EDT Kasandra Ambrose MD PATHOLOGY ORDERABLES Performing Organization Address City/State/[facility] Co de Phone Number [facility] [address] [place] [address] documented in this encounter Visit Diagnoses Not on filedocumented in this encounter Care Teams Metal Furniture Panel Coverer Relationship Specialty Start Date End Date Keshawn Mehta MD [address] [place] [phone] PCP - General 02/19/09 01/04/15 documented as of this encounter
--- OUTSIDE RECORDS SUMMARY | 2024-06-24 02:18 | XMS_ITS | Encounter Summary ---
Author Organization [facility] Address [address] [place] [address] Care Team Providers Care Material Handling Technician Name Role Phone Remedios Mehta MD Primary Care Provider [phone] Reason for Visit * Reason Comments Cough productive cough x3 days - green sputum. Using nebulizer at home. c/o headache, 'achy all over'. Encounter Details Date Type Department Care Team (Late st Contact Info) Description 08/28/2013 13:30 EDT Office Visit [facility] [address] [address] Nathalia Mercer MD Asthma with exacerbation (Primary Dx); Bronchitis, acute Social History Tobacco Use Types Packs/Day Years [...] Sign Reading Time Taken Comments Blood Pressure 102/70 08/28/2013 1358 EDT Pulse 64 08/28/2013 1358 EDT Temperature 36.2 ??C (97.2 ??F) 08/28/2013 1358 EDT Respiratory Rate - - Oxygen Saturation - - Inhaled Oxygen Concentration - - Weight 95.3 kg (210 lb) 08/28/2013 1358 EDT Height - - Body Mass Index 41.23 08/05/2013 1142 EDT documented in this encounter Functional Status Cognitive Status Response Date of Assessm ent Because of a physical, menta l, or emotional condition, do you have serious difficulty concentrating, remembering, or making decisions? (5 years old or older) Yes 07/17/2013 documented as of this encounter Discharge Diagnoses Diagnosis 493.92 ASTHMA, UNSPECIFIED, WITH (ACUTE) EXACERBATION[ICD-9-CM] documented in this encounter Ordered Prescriptions Prescription Sig Dispensed Refills Start Date End Da te predniSONE (DELTASONE) 20 mg tabletIndications:Asthma with exacerbation Take 20 mg today, then starting tomorrow morning take 40mg (2 tabs) for two days, then 20 mg (1 tab) for 2 days. Take with food. 7 Tab 0 08/28/2013 09/13/2013 azithromycin (ZITHROMAX) 250 mg tablet Take 2 tablets (500 mg) on day 1, followed by 1 tablet (250 mg) once daily on days 2 through 5. 6 Tab 0 08/28/2013 09/13/2013 documented in this encounter Progress Notes * Nathalia Mercer MD - 08/28/2013 1407 EDT Subjective: Patient ID: Cherelle Husain is an 53 y.o. female. Chief Complaint Patient presents with ??? Cough productive cough x3 days - green sputum. Using nebulizer at home. c/o headache, 'achy all over'. Cough Associated symptoms include a sore throat, shortness of breath and wheezing. Four days of worsening sore throat, cough productive of greenish sputum and headache. Shortness of breath, wheezing especially with walking. Chest tightness. Uses her inhalers, but recently started using her albuterol nebulizer 3 times a day. Reports URI symptoms 2 weeks ago which seemed to resolve but for the cough. Has not liked steroid use in past- caused jitteriness, but wants to be well for scheduled dental procedure next week. (lost tooth at time of Hysterectomy) Patient Active Problem List Diagnosis ??? Myalgia [...] leg ??? Cervical spondylosis without myelopathy ??? BERNARD (dyspnea on exertion) ??? GERD (gastroesophageal reflux disease) ??? Headache ??? Endometrial cancer ??? Post op infection ??? Pes anserinus bursitis of left knee Past Medical History Diagnosis Date ??? Fibromyalgia ??? Obesity ??? Asthma ??? Depression ??? Anxiety ??? GERD (gastroesophageal reflux disease) ??? Fibromyalgia ??? confirmed 1979,1983 2 vaginal deliveries ??? Lung disease ??? Complication of anesthesia respiratory ??? IBS (irritable bowel syndrome) ??? Hypertension ??? Lung disease ??? IBS (irritable bowel syndrome) ??? Factor PI ??? Arthritis osteoarthritis, psoriatic arthritis ??? Hyperlipidemia ??? Constipation Current Outpatient Prescriptions on File Prior to Visit Medication Status Sig Dispense Refill ??? acetaminophen (TYLENOL) 325 mg tablet Active Take 2 Tabs by mouth every 6 hours as needed for Pain. ??? albuterol (PROVENTIL HFA, VENTOLIN HFA) 90 mcg/actuation inhaler Active Inhale 2 Puffs as directed every 4 hours. 1 Inhaler 1 ??? albuterol (PROVENTIL) 2.5 mg /3 mL (0.083 %) nebulizer solution Active Take 3 mL by nebulization every 4 hours as needed for Wheezing. 1 Box 1 ??? budesonide-formoterol HFA (SYMBICORT) 80-4.5 mcg/actuation HFA Aerosol Inhaler inhaler Active Inhale 2 Puffs as directed 2 times daily. 1 Inhaler 5 ??? CALCIUM CARBONATE/VITAMIN D3 (CALCIUM WITH VITAMIN D ORAL) Active Take by mouth daily. ??? docusate sodium (COLACE) 100 mg capsule Active Take 1 Cap by mouth 2 times daily as needed for Constipation. ??? duloxetine (CYMBALTA) 60 mg capsule Active Take 1 Cap by mouth daily. 30 Cap 11 ??? enoxaparin (LOVENOX) 60 mg/0.6 mL injection Active Inject 60 mg into the skin daily. START 06/12/13 30 Syringe 0 ??? ferrous gluconate (FERGON) 324 mg (38 mg iron) tablet Active Take 1 Tab by mouth 2 times daily with breakfast and dinner. 60 Tab 4 ??? fluocinonide (LIDEX) 0.05 % cream Active Apply to affect area(s) as directed. 60 g 3 ??? fluticasone (FLONASE) 50 mcg/actuation nasal spray Active Instill 1 [place] into both nostrils daily. 1 Bottle 5 ??? HYDROcodone-acetaminophen (NORCO) 10-325 mg per tablet Active Take 1 Tab by mouth every 6 hoursas needed for Pain. 116 Tab 1 ??? ketoconazole (NIZORAL) 2 % cream Active Apply topically daily. Apply to affect area(s) as directed. 1 Tube 1 ??? loratadine (CLARITIN) 10 mg tablet Active Take 1 Tab by mouth daily. 90 Tab 1 ??? lovastatin (MEVACOR) 10 mg tablet Active Take 1 Tab by mouth daily. 90 Tab 4 ??? lubiprostone (AMITIZA) 24 mcg capsule Active Take 24 mcg by mouth as needed. ??? meloxicam (MOBIC) 7.5 mg tablet Active Take 1 Tab by mouth daily. 30 Tab 2 ??? metoprolol (LOPRESSOR) 25 mg tablet Active Take 1 Tab by mouth 2 times daily. 180 Tab 4 ??? MULTIVITAMINS (MULTIVITAMIN ORAL) Active Take 1 Tab by mouth daily. ??? omeprazole (PRILOSEC) 20 mg capsule Active Take 1 Cap by mouth 2 times daily. 60 Cap 5 ??? ondansetron (ZOFRAN-ODT) 4 mg disintegrating tablet Active Take 1 Tab by mouth every 6 hours asneeded for Nausea. 12 Tab 0 ??? polyethylene glycol (GLYCOLAX) 17 gram/dose powder Active Take 17 g by mouth daily. 1 Bottle 3 ??? traZODone (DESYREL) 100 mg tablet Active TAKE ONE TO TWO TABLETS BY MOUTH AT BEDTIME NEEDED FOR SLEEP 56 Tab 1 ??? zafirlukast (ACCOLATE) 20 mg tablet Active Take 1 Tab by mouth 2 times [...] 20+ yr ago ??? Alcohol Use: Yes very occasional Review of Systems Constitutional: Positive for diaphoresis. HENT: Positive for congestion and sore throat. Eyes: Negative. Respiratory: Positive for cough, sputum production, shortness of breath and wheezing. Cardiovascular: Negative. Gastrointestinal: Negative. Genitourinary: June 11- hysterectomy and readmission in June for wound infection and abcess/cellulits - See HPI Objective: BP 102/70 Pulse 64 Temp(Src) 36.2 ??C (97.2 ??F) (Tympanic) Wt 95.255 kg (210 lb) BMI 41.23kg/m2 LMP 03/09/2010 Physical Exam Constitutional: She is oriented to person, place, and time. She appears well- developed and well-nourished. No distress. HENT: Nose: Nose normal. Mouth/Throat: Oropharynx is clear and moist. No oropharyngeal exudate. Eyes: Conjunctivae and EOM are normal. Pupils are equal, round, and reactive to light. Neck: Normal range of motion. Neck supple. Cardiovascular: Normal rate, regular rhythm and normal heart sounds. Pulmonary/Chest: Difficulty taking deep breaths due to cough, but fair air exchange, faint wheeze, no rhonchi or rales. Lymphadenopathy: She has no cervical adenopathy. Neurological: She is alert and oriented to person, place, and time. Skin: Skin is warm and dry. Psychiatric: She has a normal mood and affect. Her behavior is normal. Thought content normal. Assessment: Cherelle was seen today for bronchitis with exacerbation of her asthma. Given reported compliance with her usual medication, steroids may be beneficial. Plan: Diagnoses and associated orders for this visit: Asthma with exacerbation - predniSONE (DELTASONE) 20 mg tablet; Take 20 mg today, then starting tomorrow morning take 40mg (2 tabs) for two days, then 20 mg (1 tab) for 2 days. Take with food. And by taking in the morning, hope to decrease disruption of sleep. If she cannot tolerate 40 mg, will decrease to 20mg. - Continue inhalers - Steam. Bronchitis, acute - azithromycin (ZITHROMAX) 250 mg tablet; Take 2 tablets (500 mg) on day 1, followed by 1 tablet (250 mg) once daily on days 2 through 5. Pharyngitis- as above Cough- consider adding guifenacin with codeine if cough not improved. - Return if symptoms worsen or fail to improve. Patient education was verbal, direct to the patient, with no barriers identified. She verbalized her understanding and can implement the plans independently. documented in this encounter Plan of Treatment Not on file documented as of this encounter Visit Diagnoses Diagnosis Asthma with exacerbation- Primary Unspecified asthma, with exacerbation Bronchitis, acute Acute bronchitis documented in this encounter Care Teams Material Handling Technician Relationship Specialty Start Date End Date Remedios Mehta MD [address] [place] [phone] PCP - General 02/19/09 01/04/15 documented as of this encounter
--- OUTSIDE RECORDS SUMMARY | 2024-06-24 02:18 | XMS_ITS | Encounter Summary ---
Author Organization [facility] Address [address] [place] [address] Care Team Providers Care Manager Credit Risk Name Role Phone Remedios Mehta MD Primary Care Provider [phone] Reason for Visit * Reason Comments Fibromyalgia Back Pain fell on ice Encounter Details Date Type Department Care Team (Late st Contact Info) Description 09/13/2013 9:45 EST Office Visit [address] [address] Remedios Mehta MD [address] [place] [phone] Pain of right leg (Primary Dx); Cervical spondylosis without myelopathy; Arthropathy; Allergic rhinitis; Fibromyalgia; Constipation; IC (irritable colon) Social History Tobacco Use Types Packs/Day Years [...] Sign Reading Time Taken Comments Blood Pressure 92/56 09/13/2013 0957 EST Pulse 76 09/13/2013 0957 EST Temperature 36.4 ??C (97.6 ??F) 09/13/2013 0957 EST Respiratory Rate - - Oxygen Saturation - - Inhaled Oxygen Concentration - - Weight 94.8 kg (209 lb) 09/13/2013 0957 EST Height - - Body Mass Index 41.04 08/05/2013 1142 EDT documented in this encounter Functional Status Cognitive Status Response Date of Assessm ent Because of a physical, menta l, or emotional condition, do you have serious difficulty concentrating, remembering, or making decisions? (5 years old or older) Yes 07/17/2013 documented as of this encounter Discharge Diagnoses Diagnosis 729.5 PAIN IN LIMB[ICD-9-CM] 721.0 CERVICAL SPONDYLOSIS[ICD-9-CM] 716.90 ARTHROPATHY NOS-UNSPEC[ICD-9-CM] 477.9 ALLERGIC RHINITIS NOS[ICD-9-CM] 729.1 MYALGIA AND MYOSITIS NOS[ICD-9-CM] 564.00 UNSPECIFIED CONSTIPATION[ICD-9-CM] 564.1 IRRITABLE COLON[ICD-9-CM] documented in this encounter Ordered Prescriptions Prescription Sig Dispensed Refills Start Date End Da te polyethylene glycol (GLYCOLAX) 17 gram/dose powderIndications:Constip ation,IC (irritable colon) Take 17 g by mouth daily. 1 Bottle 3 09/13/2013 12/23/2013 meloxicam (MOBIC) 7.5 mg tabletIndications:Cervica l spondylosis without myelopathy,Arthropathy,Fi bromyalgia Take 1 Tab by mouth daily. 30 Tab 2 09/13/2013 01/14/2014 HYDROcodone-acetaminophen (NORCO) 10-325 mg per tabletIndications:Pain of right leg,Cervical spondylosis without myelopathy,Arthropathy,Fi bromyalgia Take 1 Tab by mouth every 6 hours as needed for Pain. 116 Tab 1 09/13/2013 12/18/2013 traZODone (DESYREL) 100 mg tabletIndications:Pain of right leg Take 1 Tab by mouth at bedtime. 56 Tab 1 09/13/2013 01/12/2014 documented in this encounter Progress Notes * Remedios Strong MD - 09/13/2013 1600 EST Subjective: Patient ID: Cherelle Husain is an 53 y.o. female. Chief Complaint Patient presents with ??? Fibromyalgia ??? Back Pain fell on ice HPI Here to follow up on multiple issues. Doing better since her BRITTANY-BSO for Endometrial adenocarcinomaFIGO grade I, likely confined to an endometrial polyp this summer. Uses a cane to walk around mostly because of back pain and knee pain. Lives alone with her dog. Friend Jeannette and her are helping a lot. Has also had some assistance from [facility]. She is hoping to sell her place and get affordable housing. PMH/PSH/Meds/All/FH/SH all reviewed and updated in prism. Mood is good. Relationship with son Barney has improved. Patient Active Problem List Diagnosis ??? Myalgia [...] by mouth daily. 30 Cap 11 ??? ferrous gluconate (FERGON) 324 mg (38 mg iron) tablet Active Take 1 Tab by mouth 2 times daily with breakfast and dinner. 60 Tab 4 ??? fluocinonide (LIDEX) 0.05 % cream Active Apply to affect area(s) as directed. 60 g 3 ??? fluticasone (FLONASE) 50 mcg/actuation nasal spray Active Instill 1 [place] into both nostrils daily. 1 Bottle 5 ??? ketoconazole (NIZORAL) 2 % cream Active [...] needed. ??? metoprolol (LOPRESSOR) 25 mg tablet Active [...] asneeded for Nausea. 12 Tab 0 ??? traZODone (DESYREL) 100 mg tablet Active Take 1 Tab by mouth at bedtime. [...] Use: Yes very occasional Review of Systems All other systems reviewed and are negative. - See HPI Objective: BP 92/56 Pulse 76 Temp(Src) 36.4 ??C (97.6 ??F) (Tympanic) Wt 94.802 kg (209 lb) BMI 41.03 kg/m2 LMP 03/09/2010 Physical Exam Constitutional: She is oriented to person, place, and time. She appears well- developed and well-nourished. HENT: Right Ear: External ear normal. Left Ear: External ear normal. Nose: Nose normal. Mouth/Throat: Oropharynx is clear and moist. Eyes: Conjunctivae are normal. Neck: Normal range of motion. Neck supple. Cardiovascular: Normal rate, regular rhythm and normal heart sounds. Pulmonary/Chest: Effort normal and breath sounds normal. Abdominal: Soft. Bowel sounds are normal. She exhibits no mass. There is no guarding. Healed incision over lower abdomen Musculoskeletal: Some tenderness over medial aspect of left knee; slight effusion; no ligamentous laxity Neurological: She is alert and oriented to person, place, and time. Psychiatric: She has a normal mood and affect. Assessment: Plan: Cherelle was seen today for fibromyalgia and back pain. Diagnoses and associated orders for this visit: Pain of right leg/Cervical spondylosis without myelopathy - HYDROcodone-acetaminophen (NORCO) 10-325 mg per tablet; Take 1 Tab by mouth every 6 hours as needed for Pain. - meloxicam (MOBIC) 7.5 mg tablet; Take 1 Tab by mouth daily. Continue pool therapy twice a week Allergic rhinitis The current medical regimen is effective; continue present plan and medications. Fibromyalgia - HYDROcodone-acetaminophen (NORCO) 10-325 mg per tablet; Take 1 Tab by mouth every 6 hours as needed for Pain. - meloxicam (MOBIC) 7.5 mg tablet; Take 1 Tab by mouth daily. Constipation - polyethylene glycol (GLYCOLAX) 17 gram/dose powder; Take 17 g by mouth daily. IC (irritable colon) - polyethylene glycol (GLYCOLAX) 17 gram/dose powder; Take 17 g by mouth daily. Depression The current medical regimen is effective; continue present plan and medications. Return in about 3 months (around 12/14/2013) for 30 min. documented in this encounter Plan of Treatment Not on file documented as of this encounter Visit Diagnoses Diagnosis Pain of right leg- Primary Pain in limb Cervical spondylosis without myelopathy Arthropathy Arthropathy, unspecified, site unspecified Allergic rhinitis Allergic rhinitis, cause unspecified Fibromyalgia Mylagia and myositis, unspecified Constipation Unspecified constipation IC (irritable colon) Irritable bowel syndrome documented in this encounter Discontinued Medications Medication Sig Discontinue Reason Start Date End Da te azithromycin (ZITHROMAX) 250 mg tablet Take 2 tablets (500 mg) on day 1, followed by 1 tablet (250 mg) once daily on days 2 through 5. Therapy completed 08/28/2013 09/13/2013 enoxaparin (LOVENOX) 60 mg/0.6 mL injectionIndications:Hyp ercoagulable state (HCC-CMS) Inject 60 mg into the skin daily. START 8/14/13 Therapy completed 06/12/2013 09/13/2013 predniSONE (DELTASONE) 20 mg tabletIndications:Asthma with exacerbation Take 20 mg today, then starting tomorrow morning take 40mg (2 tabs) for two days, then 20 mg (1 tab) for 2 days. Take with food. Therapy completed 08/28/2013 09/13/2013 traZODone (DESYREL) 100 mg tablet TAKE ONE TO TWO TABLETS BY MOUTH AT BEDTIME NEEDED FOR SLEEP Reorder 05/06/2013 09/13/2013 HYDROcodone-acetaminophe n (NORCO) 10-325 mg per tablet Take 1 Tab by mouth every 6 hours as needed for Pain. Reorder 07/12/2013 09/13/2013 meloxicam (MOBIC) 7.5 mg tablet Take 1 Tab by mouth daily. Reorder 07/04/2013 09/13/2013 polyethylene glycol (GLYCOLAX) 17 gram/dose powderIndications:Ashli mijares Take 17 g by mouth daily. Reorder 03/04/2013 09/13/2013 documented as of this encounter Care Teams Manager Credit Risk Relationship Specialty Start Date End Date Remedios Mehta MD [address] [place] [phone] PCP - General 02/19/09 01/04/15 documented as of this encounter
--- OUTSIDE RECORDS SUMMARY | 2024-06-24 02:18 | XMS_ITS | Encounter Summary ---
Author Organization [facility] Address [address] [place] [address] Care Team Providers Care Marketing Technologist Name Role Phone Janine Remedios Doe MD Primary Care Provider [phone] None, Provider Primary Care Provider German PabonC Primary Care Provider [phone] Elly Ling NP Primary Care Provider [phone] Reason for Visit * Reason Comments Other Encounter Details Date Type Department Care Team (Late st Contact Info) Description 10/08/2013 [facility] - [address] [address] Marylou Gentile PA-C [address] [place] [phone] Other Social History Tobacco Use Types Packs/Day [...] documented as of this encounter Care Teams Marketing Technologist Relationship Specialty Start Date End Date Remedios Mehta MD [address] [place] [phone] PCP - General 02/19/09 01/04/15 None, Provider PCP - General 01/05/15 09/23/18 German Garzon, PALisbethC [facility] [place] [phone] PCP - General 09/28/18 05/29/22 Elly Ling NP [address] [place] [address] PCP - General Family Medicine - Primary Care 05/30/22 documented as of this encounter
--- OUTSIDE RECORDS SUMMARY | 2024-06-24 02:18 | XMS_ITS | Encounter Summary ---
Author Organization [facility] Address [address] [place] [address] Care Team Providers Care Embryology Professor Name Role Phone Remedios Mehta MD Primary Care Provider [phone] Reason for Visit * Reason Onset Date Comments Medications Refill 07/04/2013 Encounter Details Date Type Department Care Team (Late st Contact Info) Description 07/04/2013 Refill [facility] Spine [facility] - [address] [address] Marylou Gentile PA-C [address] [place] [phone] Medications Refill Social History Tobacco Use Types [...] Yes 04/15/2010 documented as of this encounter Ordered Prescriptions Prescription Sig Dispensed Refills Start Date End Da te meloxicam (MOBIC) 7.5 mg tablet Take 1 Tab by mouth daily. 30 Tab 2 07/04/2013 09/13/2013 documented in this encounter Miscellaneous Notes * Telephone Encounter - Emy Walker - 07/04/2013 1320 EDT Patient called to request a refill on her Meloxicam. Wants Marylou to know that the reason she hasn'mohan recommended injection and f/u is because she has been dealing with cancer. She has rescheduled her injection to August, and is on a waiting list. documented in this encounter Plan of Treatment Not on file documented as of this encounter Visit Diagnoses Not on filedocumented in this encounter Discontinued Medications Medication Sig Discontinue Reason Start Date End Da te meloxicam (MOBIC) 7.5 mg tablet Take 1 Tab by mouth daily. Reorder 04/01/2013 07/04/2013 documented as of this encounter Care Teams Embryology Professor Relationship Specialty Start Date End Date Remedios Mehta MD [address] [place] [phone] PCP - General 02/19/09 01/04/15 documented as of this encounter
--- OUTSIDE RECORDS SUMMARY | 2024-06-24 02:18 | XMS_ITS | Encounter Summary ---
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 Operator Name Role Phone Keshawn Mehta MD Primary Care Provider [phone] Reason for Referral * Consult (Routine/Next Available) - Closed Specialty Diagnoses / Procedures Referred By Joao proctor Referred To Contact Diagnoses Asthma Chronic low back pain Malignant neoplasm of corpus uteri, except isthmus ([facility]) Eliza Mccoy MD [address] [place] [address] Referral ID Status Reason Start Date Expiration Date V isits Requested Visits Authorized [id number] Closed Specialty Services Required 06/14/2013 1 1 Question Answer Group Home Referral - Assessment: CP Status, Pain Control Group Home Referral - Disease Mgmt and Education about: Medication Mgmt Other - asthma, pain control Group Home Referral - Wound Care: (Please include care and frequency.) Post Surgical Physical therapy is needed for: Evaluation, Safety, Gait/Mobility Assessment and Training, Post Surgical, Strength Training/Exercise Program Social Work Referral: Assess Group Home Planning Needs, Eval Psychosocial Factors Impeding Progress Towards Medical Plan of Care Encounter Details Date Type Department Care Team (Latest Contact Info) Description 06/11/2013 6:59 EDT - 06/14/2013 13:45 EDT Hospital Encounter [facility] Mother/Baby Unit [address], [place] [id number] Antoinette Ambrose MD [address] [place] [address] Malignant neoplasm of corpus uteri, except isthmus (HCC-CMS) (Primary Dx); Asthma; Hyperlipidemia; Need for Tdap vaccination; Abdominal discomfort; IBS (irritable bowel syndrome); GERD (gastroesophageal reflux disease); Myalgia and myositis; Hypertension; Cough; Chronic low back pain Discharge Disposition: Home or Self Care Social [...] Sign Reading Time Taken Comments Blood Pressure 119/57 06/14/2013 0758 EDT Pulse 78 06/14/2013 0758 EDT Temperature 35.9 ??C (96.6 ??F) 06/14/2013 0758 EDT Respiratory Rate 16 06/14/2013 0758 EDT Oxygen Saturation 99% 06/14/2013 0758 EDT Inhaled Oxygen Concentration - - Weight 100.7 kg (222 lb) 06/04/2013 1110 EDT Height 152.4 cm (5') 06/04/2013 1110 EDT Body Mass Index 43.36 06/04/2013 1110 EDT documented in this encounter Functional Status Cognitive Status Response Date of Assessm ent Because of a physical, menta l, or emotional condition, do you have serious difficulty concentrating, remembering, or making decisions? (5 years old or older) Yes 04/15/2010 documented as of this encounter Discharge Summaries * Eliza Dennison MD - 06/11/2013 1913 EDT Discharge Summary Chief Complaint: Grade 1 endometrial adenocarcinoma Principal Procedure: Exploratory laparotomy, total abdominal hysterectomy, bilateral salpingoophrectomy, cystoscopy Secondary Procedure: none Condition at Discharge: Good Hospital Course: Erika Husain is a 53 y.o. year old female who was admitted to the Gynecology service following an ex-lap, BRITTANY/BSO and cysto that was performed for a history of grade 1 endometrial adenocarcinoma. Please see operative report for full details. The patient did well post-operatively with stable vital signs. Her Hct dropped from a pre-op value of 37.4, to an intra-op value of 31.2. Her immediate post-operative Hct was 27.3, and then slowly trended down to a hortensia of 20.2, for which she was transfused two units PRBCs, with subsequent appropriate rise to 25.1. Her hct then droppeda little, but remained stable at 22. Acute pain service was consulted for patient's acute on chronic pain, but they recommended continuing her current regimen. She was discharged on Jber with a few oxycodone, and her Mobic was resumed. PT evaluated her prior to discharge and felt she was safe to return home. She was subsequently discharged to home with instructions to follow up with Dr. Ambrose in2 weeks time. She will be going home with VNA and social work referrals. Relevant Studies at Discharge: Surgical pathology pending Last Lab Results at Discharge: CBC: Lab Results Component Value Date WBC 7.88 06/14/2013 RBC 2.74* 06/14/2013 HGB 8.0* 06/14/2013 HCT 23.5* 06/14/2013 MCV 86 06/14/2013 MCH 29.0 06/14/2013 MCHC 33.9 06/14/2013 PLT 200 06/14/2013 DIFFTYPE Automated 05/06/2013 SEDRATE 12 03/05/2012 Home Health [id number] Encounter: I certify that this patient is under my care and that I, or a Medicare authorized non-physician provider (INSTRUMENT ADJUSTER or PA) working with me, had a [id number] encounter with this patient on 06/14/13 that wasin whole or in part related to the reason the patient needs home health care. The findings of this encounter indicate that the patient requires fdc or therapist services for the reasons listed below. FPC services: - are required to train the patient/caregiver to manage the treatment regimen for this illness or condition - are required to provide treatments and care safely and effectively - are required for assessment/observation due to the potential for complications or exacerbation ofthe patient's condition Skilled therapist services: - are required because of the complexity of the therapy needed to treat the injury, illness or condition Additionally, the findings of this encounter support that the patient is homebound because: - leaving home requires considerable and taxing effort due to a medical condition Discharge Summary Completed: yes CC: Keshawn Mejia MD documented in this encounter Discharge Instructions * Discharge Instructions* Leatha Mckenna MD - 06/14/2013 8:31 EDT Diet: Diabetic Activity: No driving for two weeks or while taking narcotic medication No heavy lifting (over 10 pounds) or strenuous activity for 4 weeks Nothing in vagina (no tampons, douches, or intercourse for 8 weeks) Skin/Wound Care: Okay to get wound wet, but pat dry. Do NOT rub the wound area. Let Steri-Strips fall off on their own. Call your provider for problems with stiches, redness, pain, drainage or if stiches pull apart. Bathing: No bath or immersion for 4 weeks Pending Results: Not applicable Symptoms to Call Your Doctor About: Chest pain (angina) Dizziness or fainting Decreased urine output Fever greater than 100.4 or chills Increased or new pain Increased peripheral edema Nausea or vomiting Shortness of breath or rapid breathing Signs of infection such as pain, redness, swelling or drainage at procedure or wound site Vaginal bleeding that is saturating more than a pad an hour. Appointments: See Antoinette Velazquez MD. Please call for an appointment. Please make an appointment with the nurse at [facility] to have your hudson removed on Monday (June 17). Follow-up Services Contacted at Discharge: none Health Risk and Disease Information: Not applicable documented in this encounter Medications at Time [...] HFA (SYMBICORT) 80-4.5 mcg/actuation HFA Aerosol Inhaler inhalerIndications:Ast hma,Hyperlipidemia,Nee d for Tdap vaccination,Abdominal discomfort,IBS (irritable bowel syndrome),GERD [...] 3 06/05/2013 fluticasone (FLONASE) 50 mcg/actuation nasal sprayIndications:Asthm a,Hyperlipidemia,Need for Tdap vaccination,Abdominal discomfort,IBS (irritable bowel syndrome),GERD (gastroesophageal reflux disease) Instill 1 [place] into both nostrils daily. 1 Bottle 5 06/05/2013 lubiprostone (AMITIZA) 24 mcg capsule Take 24 mcg by mouth as needed. 09/27/2010 MULTIVITAMINS (MULTIVITAMIN ORAL) Take 1 Tab by mouth daily. acetaminophen (TYLENOL) 325 mg tablet Take 2 Tabs by mouth every 6 hours as needed for Pain. 06/14/2013 03/17/2014 CLARITIN 10 mg tablet TAKE ONE TABLET BY MOUTH EVERY DAY 90 Each 1 12/25/2012 08/19/2013 duloxetine (CYMBALTA) 60 mg capsuleIndications:Lyubov lgia and myositis Take 1 Cap by mouth daily. 30 Cap 11 10/11/2012 10/15/2013 enoxaparin (LOVENOX) 60 mg/0.6 mL injectionIndications:H ypercoagulable state ([facility]) Inject 60 mg into the skin daily. START 06/12/13 30 Syringe 0 06/12/2013 09/13/2013 ferrous gluconate (FERGON) 324 mg (38 mg iron) tablet Take 1 Tab by mouth 2 times daily with breakfast and dinner. 60 Tab 2 06/14/2013 07/12/2013 HYDROcodone-acetaminop hen (NORCO) 10-325 mg per tablet Take 1 Tab by mouth every 6 hours as needed for Pain. 30 Tab 0 06/14/2013 07/12/2013 ketoconazole (NIZORAL) 2 % creamIndications:Rash Apply topically daily. Apply to affect area(s) as directed. 1 Tube 1 02/17/2010 04/18/2021 lovastatin (MEVACOR) 10 mg tabletIndications:Hype rlipidemia,Asthma,Need for Tdap vaccination,Abdominal discomfort,IBS (irritable bowel syndrome),GERD (gastroesophageal reflux disease) Take 1 Tab by mouth daily. 90 Tab 4 08/22/2012 07/12/2013 meloxicam (MOBIC) 7.5 mg tablet Take 1 Tab by mouth daily. 30 Tab 2 04/01/2013 07/04/2013 metoprolol (LOPRESSOR) 25 mg tabletIndications:Hype rtension Take 1 Tab by mouth 2 times daily. 180 Tab 4 06/05/2013 09/24/2018 omeprazole (PRILOSEC) 20 mg capsuleIndications:MONALISA D (gastroesophageal reflux disease),Cough Take 1 Cap by mouth 2 times daily. 60 Cap 5 06/05/2013 12/20/2013 ondansetron (ZOFRAN-ODT) 4 mg disintegrating tablet Take 1 Tab by mouth every 6 hours as needed for Nausea. 12 Tab 0 06/14/2013 09/24/2018 oxyCODONE (ROXICODONE) 5 mg immediate release tablet Take 1-2 Tabs by mouth every 3 hours as needed for Pain. 20 Tab 0 06/14/2013 07/12/2013 polyethylene glycol (GLYCOLAX) 17 gram/dose powderIndications:Cons tipation Take 17 g by mouth daily. 1 Bottle 3 03/04/2013 09/13/2013 traZODone (DESYREL) 100 mg tablet TAKE ONE TO TWO TABLETS BY MOUTH AT BEDTIME NEEDED FOR SLEEP 56 Tab 1 05/06/2013 09/13/2013 zafirlukast (ACCOLATE) 20 mg tablet Take 1 Tab by mouth 2 times daily. 180 Tab 5 06/05/2013 04/18/2021 documented as of this encounter Ordered Prescriptions Prescription Sig Dispensed Refills Start Date End Da te docusate sodium (COLACE) 100 mg capsule Take 1 Cap by mouth 2 times daily as needed for Constipation. 06/14/2013 ferrous gluconate (FERGON) 324 mg (38 mg iron) tablet Take 1 Tab by mouth 2 times daily with breakfast and dinner. 60 Tab 2 06/14/2013 07/12/2013 ondansetron (ZOFRAN-ODT) 4 mg disintegrating tablet Take 1 Tab by mouth every 6 hours as needed for Nausea. 12 Tab 0 06/14/2013 09/24/2018 HYDROcodone-acetaminophen (NORCO) 10-325 mg per tablet Take 1 Tab by mouth every 6 hours as needed for Pain. 30 Tab 0 06/14/2013 07/12/2013 oxyCODONE (ROXICODONE) 5 mg immediate release tablet Take 1-2 Tabs by mouth every 3 hours as needed for Pain. 20 Tab 0 06/14/2013 07/12/2013 ferrous gluconate (FERGON) 324 mg (38 mg iron) tablet Take 1 Tab by mouth 2 times daily with breakfast and dinner. 40 Tab 2 06/14/2013 06/14/2013 acetaminophen (TYLENOL) 325 mg tablet Take 2 Tabs by mouth every 6 hours as needed for Pain. 06/14/2013 03/17/2014 ondansetron (ZOFRAN-ODT) 4 mg disintegrating tablet Take 1 Tab by mouth every 6 hours as needed for Nausea. 12 Tab 0 06/14/2013 06/14/2013 oxyCODONE (ROXICODONE) 5 mg immediate release tablet Take 1-2 Tabs by mouth every 3 hours as needed for Pain. 40 Tab 0 06/14/2013 06/14/2013 documented in this encounter Discharge Disposition Disposition Code Departure Means Destination Home or Self Care documented in this encounter Progress Notes * Lesli Garcia V - 06/14/2013 1526 EDT Erika vss afebrile, up and ambulating denies SOB. Up and voiding /s difficulty. SL dc. Pt d/c reviewed d/c instructions and had perscriptions in hand. Discharged /c son via wheelchair. Son was frustrated /c [facility] d/c nurse calling for d/c before 1400 when he had to wait for d/c of mom. Denisha from pt and family advocacy came up and whent over the routine and hospital procedures. Assisted /c pt belongings for pt to have decreased stressful d/c. * Ranjit Maynard Colton, PT - 06/14/2013 1343 EDT [facility] Physical Therapy Initial Evaluation/Discontinue Note Date of Service: 06/14/2013 Reason for Referral: Priority for discharge Precautions: Activity as tolerated SUBJECTIVE: I might have my son bring a futon up for me. Pain: Location: abdomen Intensity: 7/10 (at present), 5/10 (at best), Not rated/10 (at worst) Frequency: constant Quality: sore Aggravating factors: mobility Alleviating factors: Medication, rest OBJECTIVE: Patient Profile: Patient is a 53 y.o. female admitted on 06/11/2013 secondary to *Total Abdominal Hysterectomy, Bilateral Salpingo- Oophorect The patient lives at [address] [place] [address] Home environment Lives: Alone Caregiver Support: Part-time assist, limited Equipment Available: Cane Home Environment: House Home Layout: Multi-level. Entry Stairs: 2-3 with rails Interior Stairs: flight with rails Bedroom: Upstairs Bathroom: Upstairs, Downstairs Prior Level of Function: Independent Services prior to admission: None Work/Leisure: Disabled Medical/Surgical History: Current: Patient Active Problem List Diagnoses ??? Myalgia and Myositis ??? Arthropathy ??? [...] GERD (gastroesophageal reflux disease) ??? Headache ??? Malignant neoplasm of corpus uteri, except isthmus Past: Past Medical History Diagnosis Date ??? Fibromyalgia ??? Obesity ??? Asthma ??? Depression ??? Anxiety ??? GERD (gastroesophageal reflux disease) ??? Fibromyalgia ??? confirmed 1979,1982 2 vaginal deliveries ??? Lung disease ??? Complication of anesthesia respiratory ??? IBS (irritable bowel syndrome) ??? Hypertension ??? Lung disease ??? IBS (irritable bowel syndrome) ??? Factor PI ??? Arthritis osteoarthritis, psoriatic arthritis ??? Hyperlipidemia ??? Constipation Past Surgical History Procedure Date ??? Appendectomy ??? Hernia repair ??? Carpal tunnel release 22 years ago right endoscopic by dr. Hamilton ??? Knee surgery right ??? Joint replacement 04/15/2010 Right TKR ([facility]) ??? Colonoscopy 2011 Medications: Medications reviewed Arousal, Attention, and Cognition: Orientation: Alert Oriented to person, place, and time Cardiopulmonary: Vital Signs: Activity Heart rate (bpm) Blood Pressure (mmHg) Respiratory rate (breaths/min) Oxygen Sat/ Fractions of inspired Oxygen SPO2/FIO2 % Pre 78 119/57 99% During Post Integumentary/Anthropometric Characteristics: Palpation/Observation: Skin: abdominal wound n/e Posture: No problem noted Range of Motion and Joint Integrity: Active Range of Motion: Within normal limits Upper Quarter: Left Upper Extremity: Right Upper Extremity: Cervical Spine: Lower Quarter: Left Lower Extremity: Right Lower Extremity: Lumbar Spine: n/e Muscle Performance: Strength: Formal resistive muscle testing was not performed due to focus on function, moves all extremities against gravity in full ROM Lumbar Spine: n/e Sensation, Reflexes, and Nerve Integrity: Light Touch Sensation: Upper Quarter: Intact C2-T1 and occasional tingling in L UE Lower Quarter: Intact for lower extremities and occasional tingling in LLE Neuromotor Function/Development: No problems noted Balance, Locomotion, and Gait: Balance: No loss of balance observed throughout physical therapy session Locomotion: Not evaluated as wheelchair mobility does not apply to this patient. Gait: Assistive device/distance/assist/deviations: patient ambulated with cane 100 feet x 2 independently, slow but steady roman, no LOB Stairs: assist needed/number of steps: patient instructed in step-to pattern and rail/cane use Patient ascend and descend 10 steps with rail and cane with step-to pattern with occasional step-over step going up, independent, increased time to complete Self-Care, Home Management, Work, and Leisure: Mobility evaluation as follows: Rolling: independent Supine to sit: cues for rolling technique and able to perform independently but with increased effort Sit to supine: cues for rolling technique and able to perform independently but with increased effort Sit to stand: independent Stand to sit: independent Bed to chair: n/e Chair to bed: n/e Patient reports showering independently and dressing independently this morning Informed Consent: The patient consented to the physical therapy evaluation. The patient agrees to and understands the physical therapy treatment plan and goals. Interventions Completed Today: Physical Therapy today at: 1215 Examination: 15 minutes Intervention: 10 minutes Intervention included: Therapeutic activities: instructions for bed mobility and for stair climbing as noted above Patient/Family Education: Topic: Activity pacing/Energy conservation Assistive device/technique Bed mobility Discharge planning Home program Role of therapy Stairs Discussed possibility of purchase of bedrail for ease of bed mobility (patint reports this was difficult even prior to surgery) and of possible having a futon moved to main level, though I relayed topatient that she should be fine managing stairs but to limit times up and down during day. Learner: patient Method: verbal Barriers to Learning: none noted Outcome: verbalized understanding and returned demonstration Team Communication: Spoke with RN prior and after PT session. Also spoke with CM and resident ASSESSMENT: Upper Quarter Screen: Positive findings do not have an impact on the patient's function and requireno monitoring, treatment, or detailed examination Physical Therapy Diagnosis: patient presents with pain impacting her functional mobility and gait s/p [facility] Physical Therapy Prognosis: patient is appropriate for PT evaluation and intervention to address the above impairments. Patient is demonstrating independent and safe mobility necessary for discharge to home from a PT perspective. Patient has met all of the following goals: Short-Term Goals: n/a ?? n/a Long-Term Goals: 1 day Patient will be independent with bed mobility without hospital bed features. Patient will be independent with transfers. Patient will be independent with ambulation with appropriate assistive device 100 feet. Patient will be independnt for up/down 9-10 steps with railing. Patient will demonstrate the above functional activities with HR <130, RR<36, SBP<180, andSpO2 >=92%. PLAN: Discontinue Physical Therapy Recommended Discharge Destination: Home alone Recommended Discharge Services: No physical therapy follow-up services at this time Recommended Equipment Needs: Patient has all necesary equipment Other recommendations: No other consults recommended at this time Pager: [phone] RANJIT MAYNARD PT 06/14/2013 13:43 * Ranjit Maynard, PT - 06/14/2013 1327 EDT [facility] Physical Therapy Contact Note Date of Service: 06/14/2013 PT referral received. Chart reviewed. Patient in cleared for discharge to home, no equipment needs or PT follow up needed. Full note to follow. RANJIT MAYNARD PT 06/14/2013 13:27 * Chele Wing RN - 06/14/2013 0845 EDT Case Management DC Note: Contacted pt's friend Jeannette who state she is not able to assist pt or give her a ride home. She states she will check in on her this weekend. Contacted son Barney ([phone])who states he can give pt ride home if prior to 1500. Awaiting PT eval. Requested priority for d/c PT eval. Discussed with Dr. Dennison. Planned d/c for 1400 pending functional clearance. Notified son. VNA nursing and social work please. 1330 Pt cleared by PT for d/c home today. Conor PT states she notified resident and nursing. Chele Wing RN, BSN, CM pgr [phone] * Abisai Cervantes MD - 06/14/2013 0359 EDT Gynecology Progress Note Admit Date: 06/11/2013 Hospital Day: LOS: 3 days Date of Service: 06/14/2013 POD: 3 Chief Complaint: S/p BRITTANY/BSO, cysto, washings for grade I endometrial adenocarcinoma 24 Hour Events: --acute pain service consulted-->no changes made to patient's pain regimen, but will add Mobic at discharge --Hct 25.1 s/p 2U PRBCs, with subsequent drop to 22.1, but remained stable at 22.3 upon rechecking --awaiting PT evaluation Subjective: Doing well. A little abdominal cramping. Didn't sleep well because of low back pain. Has ambulated. Tolerating PO. Voiding spontaneously. Current Facility-Administered Medications Medication Route Frequency ??? albuterol (VENTOLIN HFA) inhaler 2 Puff inhalation Q4H PRN ??? budesonide-formoterol HFA (SYMBICORT) 80-4.5 mcg/actuation inhaler 2 Puff inhalation BID ??? montelukast (SINGULAIR) tablet 10 mg oral QHS ??? albuterol (PROVENTIL) nebulizer solution 2.5 mg nebulization Q4H PRN ??? triamcinolone (ARISTOCORT) 0.5 % cream topical BID ??? enoxaparin (LOVENOX) injection 60 mg subcutaneous DAILY ??? oxyCODONE (ROXICODONE) immediate release tablet 5-10 mg oral Q3H PRN ??? morphine injection 2-4 mg intravenous Q3H PRN ??? sodium chloride 0.9 % flush 3 mL intravenous Q8H ??? DULoxetine (CYMBALTA) capsule 60 mg oral DAILY ??? fluticasone (FLONASE) nasal spray 1 [place] nasal - both DAILY ??? lovastatin (MEVACOR) tablet 10 mg oral DAILY ??? metoprolol (LOPRESSOR) tablet 25 mg oral BID ??? pantoprazole (PROTONIX) tablet 20 mg oral BID ??? traZODone (DESYREL) tablet 100 mg oral AT BEDTIME PRN ??? diphenhydrAMINE (BENADRYL) capsule 25-50 mg oral Q6H PRN Or ??? diphenhydrAMINE (BENADRYL) injection 25-50 mg intravenous Q6H PRN ??? ondansetron (PF) (ZOFRAN) injection 4 mg intravenous Q6H PRN Or ??? ondansetron (ZOFRAN-ODT) disintegrating tablet 4 mg oral Q6H PRN ??? promethazine (PHENERGAN) tablet 12.5-25 mg oral Q6H PRN ??? docusate sodium (COLACE) capsule 100 mg oral BID ??? acetaminophen (TYLENOL) tablet 325-650 mg oral Q4H ??? dextrose 50 % solution 12.5 g intravenous PRN ??? glucagon (human recombinant) injection 1 mg intramuscular PRN ??? insulin aspart (NOVOLOG FLEXPEN) injection subcutaneous TID WC Objective/Physical Exam: VS: Patient Vitals for the past 12 hrs: BP Pulse Heart Rate Resp Temp SpO2 O2 Device 06/14/13 0401 108/66 mmHg 78 - 16 36.2 ??C (97.2 ??F) 97 % - 06/13/13 2342 116/58 mmHg - 92 BPM 16 36.2 ??C (97.2 ??F) - - 06/13/13 2100 128/90 mmHg 88 89 BPM 16 - 96 % Room air 06/13/13 1927 - - - - 36.3 ??C (97.3 ??F) - - I&O: Intake/Output Summary (Last 24 hours) at 06/14/13 0700 Last data filed at 06/14/13 0400 Gross per 24 hour Intake 1770 ml Output 3450 ml Net -1680 ml UOP = 300cc/1hr-->325cc/2hrs (last recorded at 0200) Gen: NAD Resp: CTAB CV: RRR Abdomen: Soft, non-tender, +BS. Incision clean/dry/intact. Ext: WWP, 2+DPs, 1+ PE bilat Recent Labs Basename 06/13/13 1249 06/13/13 0722 06/12/13 2048 06/12/13 0713 06/12/13 0121 06/11/13 1942 06/11/13 1813 06/11/13 1315 06/11/13 1105 WBC 8.19 9.71 10.34 12.04 14.79* 17.52* 17.34* 19.19* 13.74* HGB 7.7* 7.8* 8.7* 6.9* 7.6* 8.5* 8.6* 9.0* 9.5* HCT 22.3* 22.1* 25.1* 20.2* 23.3* 25.8* 26.4* 27.3* 31.2* MCV 86 85 86 91 91 91 92 91 92 PLT 169 167 201 239 274 285 271 290 323* Recent Labs Basename 06/13/13 0722 06/12/13 0713 06/11/13 1315 NA 133* 132* 139 CL 99 101 106 K 4.3 4.8 4.3 CO2 30 25 27 CREATININE 0.64 0.97 0.56 CALCIUM 8.1* 7.9* 7.9* MG 2.0 1.9 1.5* PHOS 2.3* 4.9* 3.4 Recent Labs Basename 06/13/13 2233 06/13/13 1824 06/13/13 1227 06/13/13 0822 06/12/13 2211 06/12/13 1718 06/12/13 1242 06/12/13 0800 GLUCOSEFINGE 138* 112* 125* 124* 117* 146* 147* 169* CXR: 1. No acute finding in the chest. 2. Prominent gas-filled loop of bowel in the upper abdomen which could be further evaluated with dedicated abdominal radiographs as clinically indicated.. Assessment/Problems/Plan: Erika Husain is a 53 y.o. POD#3 s/p BRITTANY/BSO, cysto, washings for grade 1 endometrial adenocarcinoma. Patient recovering well, AVSS and adequate UOP. Pain: Hx of chronic low back pain, controlled with narcotics at home; back pain appears stable. Patient's post-op surgical pain is improving. Consulted acute pain management service yesterday for assistance with optimizing pain regimen--appreciate their assistance. Will continue current pain regimen for now (scheduled tylenol, oxycodone/morphine prn), and will resume Mobic at discharge. Neuro/Psych: H/o depression, continue home Duloxetine and Trazodone PRN for sleep. CV: H/o HTN, continue home Metoprolol with hold parameters. Chest pain immediately post-op, with WNL EKG and negative cardiac enzymes. Although patient is at risk for a cardiac event, CP likely secondary to asthma, as patient reports that the CP feels similar to her asthma attacks. Will continue toclosely monitor. Resp: H/o asthma, continue home Albuterol, Symbicort, Flonase. Home leukast not available in hospital, ordered for Montelukast in its place. With chest pain, at high risk for PE given h/o DVT and recent surgery, but has been maintaining good O2 saturations and improvement of CP with asthma treatment. Will continue to closely monitor, written for PPX Lovenox. Would consider CT to r/o PE if clinically changes. GI: Regular diet as tolerated. Phenergan and Zofran PRN for nausea. Colace for bowel regimen. : Voiding spontaneously, adequate UOP. Strict I/Os. F/E/N: SLIV. hypoMag repleted on POD#0. Endo: Type 2 DM, diet controlled at home, written for SSI here. FSG with meals and at night. Glucoses have been in low 100s over the previous 24hrs. Continue to monitor. Heme: Acute blood loss anemia. Pre-op Hct 37.4, EBL 2L, gradual drop to hortensia of 20.2. S/p transfusion of 2U pRBC 06/12, with appropriate rise in Hct (20.2 -> 25.1). However, hct then dropped to 22, but remained stable at 22.3 upon repeat hct. Suspect patient was still equilibrating from intra-opblood loss versus tamponaded off a slow bleed. No evidence for active bleeding (benign abdominal exam, adequate UOP). Continue to monitor. AM CBC pending. H/o DVT, PPX Lovenox. ID: Afebrile, no active issues. Prophylaxis: Ambulation, IS, SCD's, Lovenox 60mg daily Activity: Activity as tolerated. PT consult to help with mobility. Disposition: D/C home once tolerating po, pain well controlled, ambulating and voiding independently; hopefully later today. Will dc home with VNA services. Eliza Dennison MD 06/14/2013 7:00 Pt seen and examined and agree with the above assessment and plan. * Antoinette Ambrose MD - 06/13/2013 7400 EDT Appreciate acute pain service input. Erika was on Mobic prior to admission. Since her asthma symptoms are better controlled and her renal labs are normal I would restart the Mobic 7.5 mg at discharge.I am unable to order it tonight since it is not on the hospital formulary. We are unable to use celebrex due to her Sulfa allergy. Antoinette Ambrose MD * Chele Wing RN - 06/13/2013 1112 EDT Case Management Update:Erika requesting to speak with pt advocacy. Message left for Denisha in pt advocacy. Pt continues to state she has no support in the home. Discussed ride home and transportation for dr appointments and groceries. States Jeannette could provide this. Left message for Jeannette @ [phone]. Attempted to call son Barney, however both numbers listed are inaccurate. Pt is not aware of furt her contact numbers. Chele Wing RN, BSN, pgr [phone] * Cathryn Zamarripa RN - 06/13/2013 0751 EDT Pt needed to use the bathroom @ 0700. While in bathroom C/O SOB and being lightheaded. VS taken at 0715 were stable; see flowsheet. Albuterol given per patient request. Pt back to bed at 0720. Oxygenput back on; 1L via NC. Deep breathes encouraged, O2 sat maintained at 95%. SOB subsided. Encouraged PO fluids as pt only had 1 cup of water overnight. 4mg of IV Morphine given as pt 10/10 pain; crying in bed. Pt is now up and voiding. Report given to oncshandra RN @ [phone]. * Antoinette Ambrose MD - 06/13/2013 5611 EDT Gynecology Progress Note Admit Date: 06/11/2013 Hospital Day: LOS: 2 days Date of Service: 06/13/2013 POD: 2 Chief Complaint: S/p BRITTANY/BSO, cysto, washings for grade I endometrial adenocarcinoma 24 Hour Events: Advanced to regular diet. Received two units pRBC, with appropriate rise in Hct. Desaturation down to 89% overnight, which responded to Albuterol. Tyson D/Andrew'ed per patient request. Subjective: Doing well. Feeling a VELEZ this morning, but has a known h/o migraine, which usually resolves with Tylenol. Has ambulated. Tolerating PO. Feeling gassy. Removed kam overnight. Current Facility-Administered Medications Medication Route Frequency ??? albuterol (VENTOLIN HFA) inhaler 2 Puff inhalation Q4H PRN ??? budesonide-formoterol HFA (SYMBICORT) 80-4.5 mcg/actuation inhaler 2 Puff inhalation BID ??? montelukast (SINGULAIR) tablet 10 mg oral QHS ??? albuterol (PROVENTIL) nebulizer solution 2.5 mg nebulization Q4H PRN ??? triamcinolone (ARISTOCORT) 0.5 % cream topical BID ??? enoxaparin (LOVENOX) injection 60 mg subcutaneous DAILY ??? oxyCODONE (ROXICODONE) immediate release tablet 5-10 mg oral Q3H PRN ??? morphine injection 2-4 mg intravenous Q3H PRN ??? sodium chloride 0.9 % flush 3 mL intravenous Q8H ??? DULoxetine (CYMBALTA) capsule 60 mg oral DAILY ??? fluticasone (FLONASE) nasal spray 1 [place] nasal - both DAILY ??? lovastatin (MEVACOR) tablet 10 mg oral DAILY ??? metoprolol (LOPRESSOR) tablet 25 mg oral BID ??? pantoprazole (PROTONIX) tablet 20 mg oral BID ??? traZODone (DESYREL) tablet 100 mg oral AT BEDTIME PRN ??? diphenhydrAMINE (BENADRYL) capsule 25-50 mg oral Q6H PRN Or ??? diphenhydrAMINE (BENADRYL) injection 25-50 mg intravenous Q6H PRN ??? ondansetron (PF) (ZOFRAN) injection 4 mg intravenous Q6H PRN Or ??? ondansetron (ZOFRAN-ODT) disintegrating tablet 4 mg oral Q6H PRN ??? promethazine (PHENERGAN) tablet 12.5-25 mg oral Q6H PRN ??? docusate sodium (COLACE) capsule 100 mg oral BID ??? acetaminophen (TYLENOL) tablet 325-650 mg oral Q4H ??? dextrose 50 % solution 12.5 g intravenous PRN ??? glucagon (human recombinant) injection 1 mg intramuscular PRN ??? insulin aspart (NOVOLOG FLEXPEN) injection subcutaneous TID WC Objective/Physical Exam: VS: Patient Vitals for the past 12 hrs: BP Pulse Resp Temp SpO2 O2 Flow Rate (L/min) O2 Device FIO2 % 06/13/13 0333 119/57 mmHg 98 14 37.1 ??C (98.8 ??F) 97 % 2 l/min - - 06/13/13 0015 97/53 mmHg 101 14 36.6 ??C (97.9 ??F) 97 % 2.5 l/min - - 06/12/132124 - - - - 98 % 2.5 l/min Nasal cannula - 06/12/132114 - - - - 89 % - - - 06/12/132109 100/58 mmHg 90 - - - - - - 06/12/132058 100/58 mmHg 90 14 37 ??C (98.6 ??F) 91 % - - - 06/12/13 1830 112/60 mmHg 91 14 36.5 ??C (97.7 ??F) 100 % - - - 06/12/13 1815 103/59 mmHg 90 14 36.6 ??C (97.9 ??F) 100 % - - - 06/12/13 1800 116/57 mmHg 94 14 36.5 ??C (97.7 ??F) 100 % - - - 06/12/13 1745 106/64 mmHg 91 14 36.8 ??C (98.2 ??F) 99 % - - - I&O: Intake/Output Summary (Last 24 hours) at 06/13/13 0533 Last data filed at 06/13/13 0333 Gross per 24 hour Intake 5269.17 ml Output 3400 ml Net 1869.17 ml UOP = 350cc/3hr Gen: NAD Resp: CTAB CV: RRR Abdomen: Soft, non-tender, +BS. Incision clean/dry/intact. Ext: WWP, 2+DPs, 1+ PE bilat Recent Labs Basename 06/12/13 2048 06/12/13 0713 06/12/13 0121 06/11/13 1942 06/11/13 1813 06/11/13 1315 06/11/13 1105 WBC 10.34 12.04 14.79* 17.52* 17.34* 19.19* 13.74* HGB 8.7* 6.9* 7.6* 8.5* 8.6* 9.0* 9.5* HCT 25.1* 20.2* 23.3* 25.8* 26.4* 27.3* 31.2* MCV 86 91 91 91 92 91 92 PLT 201 239 274 285 271 290 323* Recent Labs Basename 06/12/13 0713 06/11/13 1315 NA 132* 139 CL 101 106 K 4.8 4.3 CO2 25 27 CREATININE 0.97 0.56 CALCIUM 7.9* 7.9* MG 1.9 1.5* PHOS 4.9* 3.4 Recent Labs Basename 06/12/13 2211 06/12/13 1718 06/12/13 1242 06/12/13 0800 06/11/13 2345 06/11/13 1705 06/11/13 1331 06/11/13 0817 GLUCOSEFINGE 117* 146* 147* 169* 161* 211* 227* 136* CXR: 1. No acute finding in the chest. 2. Prominent gas-filled loop of bowel in the upper abdomen which could be further evaluated with dedicated abdominal radiographs as clinically indicated.. Assessment/Problems/Plan: Erika Husain is a 53 y.o. POD#2 s/p BRITTANY/BSO, cysto, washings for grade 1 endometrial adenocarcinoma. Had episode of chest pain two nights ago, with WNL EGK and cardiac enzymes. Patient recovering well, AVSS and adequate UOP. Pain: Well controlled on current regimen. Transitioned from [employer]CHITECT to PO pain meds yesterday, tolerating well. Neuro/Psych: H/o depression, continue home Duloxetine and Trazodone PRN for sleep. CV: H/o HTN, continue home Metoprolol with hold parameters. Chest pain two nights ago, with WNL EKGand negative cardiac enzymes. Although patient is at risk for a cardiac event, CP likely secondary to asthma, as patient reports that the CP feels similar to her asthma attacks. Will continue to closely monitor. Resp: H/o asthma, continue home Albuterol, Symbicort, Flonase. Home leukast not available in hospital, ordered for Montelukast in its place. With chest pain, at high risk for PE given h/o DVT and recent surgery, but maintains good O2 saturations and improvement of CP with asthma treatment, unlikely to be PE. Will continue to closely monitor, written for PPX Lovenox, WNL CRX. Will continue CT to r/o PE if clinically changes. GI: Advanced to regular diet yesterday, tolerating. Phenergan and Zofran PRN for nausea. Colace forbowel regimen. : Tyson D/C'ed overnight per patient's request. F/E/N: NS @ 150 cc/hr, will saline lock IV once tolerating adequate po (>500cc/shift). Hyponatremia noted, thus fluids switched from LR to NS. Otherwise Lytes WNL; hypoMag repleted on POD#0. Endo: Type 2 DM, diet controlled at home, written for SSI here. FSG with meals and at night. Glucose have been in the range of 117-169 over the previous 24hrs. Continue to monitor. Heme: Acute blood loss anemia. Pre-op Hct 37.4, EBL 2L, gradual drop to hortensia of 20.2. Now s/p transfusion of 2U pRBC, with appropriate rise in Hct (20.2 -> 25.1). Large drop in Hct likely predominantly secondary to intra-op EBL and equilibriation, as opposed to continue bleeding, given stable VS and overall good UOP. AM CBC pending. H/o DVT, PPX Lovenox. ID: Afebrile, no active issues. Prophylaxis: Ambulation, IS, SCD's, Lovenox 60mg daily Activity: Activity as tolerated. PT consult to help with mobility. Disposition: D/C home once tolerating po, pain well controlled, ambulating and voiding independently; possibly later today. Leatha Mckenna MD 06/13/2013 5:33 Patient seen and agree with above. No flatus but tolerating regular diet. Still issues with pain control, requiring IV morphine on top of oxycodone. Ambulating and voiding. Will consult pain service for recommendations for pain management. Consult PT to assist with mobility. Agree with VNA referral at d/c. Await am CBC. ANTOINETTE AMBROSE MD,06/13/2013,8:10 * Chele Wing RN - 06/12/2013 1339 EDT Case Management Update: during CM intake assessment, pt reported loss of crown. She stated she wokeup with tooth missing. Left message for Dr. Ambrose. Notified CM managers and pt advocacy. Pt advocacy states they will speak with the patient and notify anesthesia. SAFE report filed. Chele Wing RN, BSN, pgr [phone] * Chele Wing RN - 06/12/2013 1005 EDT Case Management Assessment Working Diagnosis/Presenting Problem: Endometrial adenocarcinoma. Total abd hysterectomy. H/o chronic back pain with narcotic use. Post-op complications including anemia requiring transfusion, chest pain, and kam blockage. Pt states she lost a crown during her surgery. Living Arrangements: Resides with roommate who is moving out at unspecified date in [facility]. Multi level with full bath on 1st floor. Pt state she cannot sleep on 1st floor, must be able to navigate steps to bedroom. Functional Status (psychosocial and physical): Independent with cane for amb. Does not work on disability X 2 years secondary to back pain. Social Supports: Son Barney lives in [place]. Pt declined allowing CM to contact Barney. 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 Existing Community Resources: None active Advanced Directives/DPOA: Not on file Cultural/Spiritual Needs: declines Insurance/Financial Needs: Medicare, Medicaid. [facility] [place]. Transportation Needs: TBD Patient Goals: Return home Assessment and Discharge Care Plan: Unable to complete assessment for social supports d/t removal of epidural [employer]CH[employer] schedule. Concerns regarding pt returning home alone, with steps to navigate. Pt has baseline physical impairments that are exacerbated by the recent procedure. Would benefit from PT evals while hospitalized. Agreeable to VNA. [facility] to [facility] via liaison Мария Callejas. Will arrange further care as appropriate. Chele Wing RN, BSN, pgr [phone] * Antoinette Ambrose MD - 06/12/2013 0719 EDT Attending update: Events of last 12 hours reviewed. Chest pain improved this morning. She feels like it is the pain associated with asthma. No signs ofMI. Pain mostly controlled by [employer]CH[employer]ECT. Feels hungry. No flatus yet. Mild tachycardia this morning with low to borderline urine output. Impression: 1. Acute blood loss anemia with no sign of ongoing blood loss. With tachycardia and decreased urine output would transfuse 2 units pRBC. Discussed with patient who agrees. Risks discussed. 2. Chest pain, likely respiratory related. Will give albuterol neb and outpt MDIs. Continue to r/o CT with troponin levels. Continue beta yara. 3. Pain management. Convert to oral meds this morning. 4. GI Advance diet. 5. VTE risk Continue lovenox and ambulate today. 6. DM Continue SSI Antoinette Abmrose MD * Antoinette Ambrose MD - 06/12/2013 0619 EDT Gynecology Progress Note Admit Date: 06/11/2013 Hospital Day: LOS: 1 day Date of Service: 06/12/2013 POD: 1 Chief Complaint: S/p BRITTANY/BSO, cysto, washings for grade I endometrial adenocarcinoma Subjective: Pt with an episode of chest heaviness last night, initial cardiac work-up negative lastnight, enzymes still cycling. Pt states that she still feels the chest tightness which she feels isjust like her asthma symptoms and is asking for a prn asthma med that she takes at home, not albuterol, which she can't remember the name of. She just received an albuterol neb and is feeling somewhat better. Her abdominal pain is controlled with the morphine [employer] when I remember to hit it. She has not yet ambulated and is not passing gas. Is tolerating clear liquids. Had some slight nausea shortly after the surgery yesterday, but no nausea or vomiting since then. Current Facility-Administered Medications Medication Route Frequency ??? albuterol (VENTOLIN HFA) inhaler 2 Puff inhalation Q4H PRN ??? budesonide-formoterol HFA (SYMBICORT) 80-4.5 mcg/actuation inhaler 2 Puff inhalation BID ??? DULoxetine (CYMBALTA) capsule 60 mg oral DAILY ??? fluticasone (FLONASE) nasal spray 1 [place] nasal - both DAILY ??? lovastatin (MEVACOR) tablet 10 mg oral DAILY ??? metoprolol (LOPRESSOR) tablet 25 mg oral BID ??? pantoprazole (PROTONIX) tablet 20 mg oral BID ??? traZODone (DESYREL) tablet 100 mg oral AT BEDTIME PRN ??? diphenhydrAMINE (BENADRYL) capsule 25-50 mg oral Q6H PRN Or ??? diphenhydrAMINE (BENADRYL) injection 25-50 mg intravenous Q6H PRN ??? ondansetron (PF) (ZOFRAN) injection 4 mg intravenous Q6H PRN Or ??? ondansetron (ZOFRAN-ODT) disintegrating tablet 4 mg oral Q6H PRN ??? promethazine (PHENERGAN) tablet 12.5-25 mg oral Q6H PRN ??? docusate sodium (COLACE) capsule 100 mg oral BID ??? lactated ringers (LR) infusion intravenous CONTINUOUS ??? acetaminophen (TYLENOL) tablet 325-650 mg oral Q4H ??? morphine 2 mg/ml (DURAMORPH) [employer] ARCHITECT, 30 ml syringe - LATEX SAFE intravenous [employer] ARCHITECT ??? morphine 2 mg/ml (DURAMORPH) syringe, 30 ml - LATEX SAFE intravenous Q30 MINUTES PRN ??? dextrose 50 % solution 12.5 g intravenous PRN ??? glucagon (human recombinant) injection 1 mg intramuscular PRN ??? insulin aspart (NOVOLOG FLEXPEN) injection subcutaneous TID WC Review of Systems: Pertinent items are noted in Subjective/HPI Objective/Physical Exam: VS: Patient Vitals for the past 8 hrs: BP Heart Rate Resp Temp SpO2 O2 Flow Rate (L/min) O2 Device 06/12/13 0503 - - 10 - - - - 06/12/13 0416 91/52 mmHg 103 BPM 8 36 ??C (96.8 ??F) 96 % 3 l/min Nasal cannula 06/12/13 0224 - - - - 98 % 3 l/min Nasal cannula 06/12/13 0201 - - 9 - - - - 06/12/13 0158 97/71 mmHg 106 BPM - 36.2 ??C (97.2 ??F) 98 % 3 l/min Nasal cannula 06/12/13 0123 - 107 BPM - - 98 % 3 l/min Nasal cannula 06/12/13 0103 118/79 mmHg - - - 96 % 3 l/min - 06/12/13 0054 - - 9 - - - - 06/12/13 0030 - 102 BPM 16 - 95 % 3 l/min Nasal cannula 06/12/13 0022 - - 8 - - - - 06/12/13 0017 - - - - - - Nasal cannula 06/12/13 0000 84/51 mmHg 100 BPM - 36.2 ??C (97.2 ??F) 94 % - Room air 06/11/13 2220 98/63 mmHg 99 BPM 12 35.5 ??C (95.9 ??F) 95 % 3 l/min Nasal cannula Pain: Patient Vitals for the past 8 hrs: Numeric Pain Level (Scale 1-10) Asleep 06/12/13 0503 - Reassessed, sleeping comfortably, RR WNL. 06/12/13 0416 7 - 06/12/13 0158 7 - 06/12/13 0103 7 - 06/12/13 0051 7 - 06/12/13 0000 6 - 06/11/13 2345 6 - 06/11/13 2220 5 - Glucose Readings (last 8 hours): Recent Labs Basename 06/11/13 2345 06/11/13 1705 06/11/13 1331 06/11/13 0817 GLUCOSEFINGE 161* 211* 227* 136* I&O: Intake/Output Summary (Last 24 hours) at 06/12/13 0616 Last data filed at 06/12/13 0416 Gross per 24 hour Intake 6560 ml Output 2905 ml Net 3655 ml 100cc UOP in 1.75 hours 48/44 morphine doses demanded/delivered since starting [employer] post-op yesterday Exam: Gen: NAD CV: RRR Resp: Mild expiratory wheezing in bilateral superior urias, otherwise CTA Abd: soft, appropriately tender to palpation, no rebound/guarding Ext: NT, no edema, SCDs in place Perineum: not inspected Incision/Wound: No blood on the bandage Is PICC or Central line present? No, PICC/Central line not present. Data Review: CXR: 1. No acute finding in the chest. 2. Prominent gas-filled loop of bowel in the upper abdomen which could be further evaluated with dedicated abdominal radiographs as clinically indicated.. Labs: I have personally reviewed CBC: Lab Results Component Value Date WBC 14.79* 06/12/2013 RBC 2.57* 06/12/2013 HGB 7.6* 06/12/2013 HCT 23.3* 06/12/2013 MCV 91 06/12/2013 MCH 29.7 06/12/2013 MCHC 32.7 06/12/2013 PLT 274 06/12/2013 NEUTROABS 4.64 05/06/2013 SEDRATE 12 03/05/2012 Cardiac markers: Lab Results Component Value Date TROPONINI <0.034 06/12/2013 Assessment/Problems/Plan: (Update problem list daily as appropriate) Erika Husain is a 53 y.o. F POD#1 s/p BRITTANY/BSO, cysto, washings for grade I endometrial adenocarcinoma. Episode of chest pain overnight. Borderline UOP overnight which resolved with kam repositioning and a small bolus. Otherwise AVSS. PAIN: Well controlled on current regimen. Will transition from [employer] to PO meds today as patient is tolerating clear liquids. CV: H/o HTN, home metoprolol continued with hold parameters. Chest pain overnight, initial work-up negative, likely related to asthma. Mariaelena still cycling. Pt is certainly at risk for cardiac event given history of obesity, HTN, and T2DM, as well as large intra-op EBL which may contribute to a demand ischemic event. Cont to cycle enzymes, if positive, will contact Cardiology. RESP: H/o asthma, continue home meds. Evaluated patient's med list for prn asthma med that was missing, however she has been written for all prn and scheduled asthma meds. If symptoms persist, will contact RT for suggestions. GI: Clear liquid diet, will advance diet as tolerated, likely later today. Phenergan, zofran prn for nausea. ?? : Kam in place, will d/c once ambulating. FEN: LR @ 150 cc/hr, will saline lock IV once tolerating adequate po (>500cc/shift). Hypomagnesemia yesterday, replaced. Repeat lytes pending. ENDO: Diet-controlled T2DM, cont SSI. HEME: Acute blood loss anemia, pt continues to equilibrate. Repeat CBC this am consistent with IV fluid bolus overnight, very low concern for any continued bleeding. Given patient's age and comorbidities, however, will transfuse 2 units pRBCs. Pt also with a h/o DVT. Has had SCDs in place. Will start lovenox this am as pt appears stable from a bleeding standpoint. ID: Afebrile, no active issues. PPX: Ambulation, IS, SCD's, lovenox daily Discharge Plan: Once tolerating po, pain well controlled, ambulating and voiding independently DVT Prophylaxis: Pharmacologic Prophylaxis: lovenox 60mg daily, Seqential Compression Device and Ambulate RALEIGH GRIGGS MD 06/12/2013 6:16 Patient seen and agree with above. ANTOINETTE AMBROSE MD,06/12/2013,12:37 * Denisha Topete MD - 06/12/2013 2883 EDT Pt seen with Evelyn Sales MD PGY-3 Pt complaining of chest pain. Vital signs all wnl. EKG significant for questionable mild demand ischemia, likely 2/2 to post op EBL. Hct stable 37.4 preop --> 27.3 PACU --> 26.4 --> 23.3. UOP 100cc/2h --> 40/2 --> bolus 500 --> 50/2hrs. Troponin <0.034 1.62 PORTABLE CHEST 1 VIEW Last Update: Preliminary result Results 06/12/2013 0217 Report Narrative PRELIMINARY RESIDENT REPORT PORTABLE CHEST 1 VIEW 06/12/2013 1:59 AM Signs and Symptoms/Comments: new onset chest pain POD#1 s/p open hysterectomy with 2L EBL Comparison: September 13, 2012 Findings: A single portable AP radiograph of the chest shows that allowing for overlying soft tissue and portable technique the lungs are clear aside from calcified granulomas in the right upper lung.. No pleural abnormality is seen. The cardiac silhouette is within normal limits for size. There is a prominent dilated gas-filled loop of bowel in the upper abdomen. Impression: 1. No acute finding in the chest. 2. Prominent gas-filled loop of bowel in the upper abdomen which could be further evaluated with dedicated abdominal radiographs as clinically indicated.. This is a preliminary report dictated by residential sales executive Sharif Garzon MD. One hour ago: S: Still feeling mild chest pain but able to fall asleep through. No SOB. Feels like bladder is full, pain down low in pelvis. O: Blood pressure 97/71, temperature 36.2 ??C (97.2 ??F), temperature source Temporal, resp. rate 9, height 152.4 cm (60), weight 100.699 kg (222 lb), last menstrual period 03/09/2010, SpO2 98.00%. 98% on 3L (no increase in O2 demand) Wheezy in room (has asthma, received nebs x 2, felt better) Abd soft, obese, approp tender, no r/g. 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 Chest pain may be secondary to mild CT, we will cycle cardiac enzymes (1st set wnl). Pt is high-risk for PE (Hx DVT, morbid obesity, post-op, EBL, immobilization, notcurrently anticoagulated 2/2 EBL), but as no desaturations or increased O2 requirements, will not pursue this diagnosis at this time. There is mild tachycardia which may be explained by abdominal pain , see below. Pain may also be musculoskeletal. CXR wnl. Pt does not appear anxious. UOP has been borderline but responded well to small IVF bolus. Nurses had flushed kam with no return but in room, kam began to drain with manipulation. Nurses to readjust kam or replace if not draining well. Plan per Dr. Ambrose is to start Lovenox in am. CBC pending at that time. Denisha Topete MD * Matilde Sales MD - 06/12/2013 0141 EDT R3 Event Note CTSP for new onset central chest pain/pressure, decreased respiratory rate to 9 and shortness of breath. Per RN, respiratory therapy had been in to provide breathing treatment to patient around 00:00, and patient did not have complaints at that time. On my arrival, patient reclining in bed, alert. Reports her pain started 15-20 minutes prior. Describes it as a centralized heaviness with some radiation to her L shoulder. No radiation down arms, into jaw or to back. Also feels that she cannot take a deep breath, though efforts to do so do not worsen pain. Reports that pain in abdomen is stable, mostly controlled with [employer]CH[employer]. Has had some very mild nausea since PACU, no vomiting. Has had mild headache since PACU as well, no dizziness. No vaginal bleeding per RN. Some chronic leg pain which iscurrently present, but not change in this. Per RN, patient had ambulated once this evening without difficulty. Stat EKG ordered prior to my arrival, being completed upon my arrival. Blood pressure 97/71, temperature 36.2 ??C (97.2 ??F), temperature source Temporal, resp. rate 9, height 152.4 cm (60), weight 100.699 kg (222 lb), last menstrual period 03/09/2010, SpO2 98.00%. HR 104-117 during my exam on continuous pulse ox, O2 sat remained 97-99 on 3L nasal cannula, which has not been increased since PACU UOP:100cc/2hrs -->40cc/2hrs -->50cc/1hr Gen: sleepy but easily arousable, NAD CV: mild tachycardia, regular, no m/g/r Lungs: diffuse scattered mild expiratory wheezes, diminished breath sounds in L lower lobe Abd: soft, moderately tender throughout but appropriate, no rebound, bulky dressing intact with no shadowing noted, no blood noted on peripad Ext: WWP, SCDs in place --> removed for exam, trace edema, no erythema/cords/tenderness EKG: sinus tachycardia, possible minor ST changes in few lateral leads consistent with repolarization delay in setting of acute blood loss, no acute ST changes. Reviewed with MICU MD. Lab Results Component Value Date WBC 14.79* 06/12/2013 HGB 7.6* 06/12/2013 HCT 23.3* 06/12/2013 MCV 91 06/12/2013 PLT 274 06/12/2013 Lab Results Component Value Date TROPONINI <0.034 06/12/2013 CK 398, MB 1.62 Portable CXR: Impression: 1. No acute finding in the chest. 2. Prominent gas- filled loop of bowel in the upper abdomen which could be further evaluated with dedicated abdominal radiographs as clinically indicated.. A/P: Erika Husain is a 53 yo F POD#1 s/p BRITTANY/BSO/washings for grade 1 endometrial ca c/b EBL of ~2L, now with new onset chest pain. Vitals significant only for mild tachycardia. Patient is certainly at risk for post-op cardiac event given significant blood loss, h/o type 2 DM,but at this time has negative cardiac evaluation. Will continue to cycle cardiac enzymes x3, would tolerate very minimal elevation in troponin given acute significant blood loss today. Patient is also at high risk for PE given h/o DVT, current post-op state, cancer diagnosis, obesityand immobility. O2 sats normal and CXR without any obvious changes. If desats or symptoms worsen, would proceed with PE-protocol CT. Differential further includes musculoskeletal pain, asthma exacerbation, demand ischemia from acuteblood loss. Continue INFRASTRUCTURE SOLUTIONS ARCHITECT. Exam, vitals and hct do not support ongoing bleeding. Patient has had borderline to low UOP. 500cc bolus had been given, and fluid rate increased during work-up, now decreased back to 150cc/hr maintenance. Patient re-evaluated with Dr. Topete at bedside after labs returned. Pain still present but somewhat decreased. Exam by Dr. Topete c/w prior exam. Patient also complaining of bladder fullnessat that time. Kam catheter re- adjusted with ~70cc returned, so low UOP possibly due to mechanicalobstruction of kam. Patient with significant discomfort with kam manipulation, plan to replace now. Patient d/w Dr. Topete, follow-up evaluation with Dr. Topete present. Dr. Ambrose notified. Matilde Sales MD 06/12/2013 4:54 * Eliza Dennison MD - 06/11/2013 1715 EDT Post-op Check S: Overall, doing well, but pain is moderate. However, patient has been sleeping a lot and therefore, not pressing the INFRASTRUCTURE SOLUTIONS ARCHITECT button much. She is also worried that she may give herself too much narcotic. No flatus, no BM. Has had a few ice chips. Some mild nausea earlier, no vomiting. Has not ambulated. Kam in place. The patient denies CP/SOB/V/VELEZ/Dizziness/F/C/LE pain. O: BP 107/70 Temp(Src) 36.4 ??C (97.5 ??F) (Tympanic) Resp 12 Ht 152.4 cm (60) Wt 100.699 kg (222 lb) BMI 43.36 kg/m2 SpO2 100% LMP 03/09/2010 Intake/Output Summary (Last 24 hours) at 06/11/13 1715 Last data filed at 06/11/13 1520 Gross per 24 hour Intake 4600 ml Output 2320 ml Net 2280 ml UOP: 300cc/4hrs Gen: NAD Abd: hypoactive BS, soft, tender all along incision site, minimally distended but hard to assess due to large body habitus, Incision dressing c/d/i Ext: WWP, 1+ PE bilat A/P: Erika Husain is a 53 y.o. F POD#0 s/p ex-lap BRITTANY/BSO, pelvic washings, and cystoscopy for grade I endometrial adenocarcinoma. Pt recovering well, AVSS and adequate UOP. PAIN: Hx of chronic back pain. Pain currently moderate with the morphine INFRASTRUCTURE SOLUTIONS ARCHITECT. Encouraged patient topress button when uncomfortable. NEURO/PSYCH: Hx of anxiety/depression, and fibromyalgia. Continue trazodone and duloxetine. CV: Hx of HTN/HLD. Continue metoprolol with hold parameters. Continue statin. Has been normotensivepost-op, will continue to monitor. RESP: Hx of asthma, will continue home meds (flonase, symbicort). Encourage IS. Currently maintaining adequate O2 sats on 3L NC. Will wean as able. GI: Clears, Phenergan, zofran prn for nausea. PPI for GERD. ?? : Kam in place, will d/c once ambulating. FEN: LR @ 150 cc/hr, will saline lock IV once tolerating adequate po (>500cc/shift). Hypomagenesia noted on PACU labs-->repleted. Other lytes wnl. Will recheck lytes in AM and replete prn. ENDO: Has been told by her PCP that she has diabetes, for which she has been controlling with diet.Blood glucoses have been elevated to the low 200s. S/p 2 units aspart in PACU. On SSI. HEME: Pre-op hct 31.2, EBL 2L, PACU hct with appropriate drop at 27.3. No evidence of active bleeding. CBC pending from this evening and will obtain CBC tomorrow morning. ID: Afebrile, leukocytosis likely secondary to stress from surgery. Will give post-op abx (gent/clinda) due to blood loss >1500cc intra-op. PPX: Ambulation, IS, SCD's, heparin TID D/C: Once tolerating po, pain well controlled, ambulating and voiding independently Eliza Dennison MD 06/11/2013 17:15 * Jessy Wing RN - 06/11/2013 1600 EDT Patient placed on a bed and positioned left side. faculty instructor use reviewed and encouraged. friend continuesat bedside and patient resting when not disturbed. Patient startles easily and wakes up on own intermittently what's going on, I have to wake up * Jessy Wing RN - 06/11/2013 1504 EDT Patient easily awakens and returns to sleep when not disturbed. Friend at bedside * Jessy Wing RN - 06/11/2013 1351 EDT Labs drawn and sent * Antoinette Ambrose MD - 06/10/2013 2141 EDT Erika is a 54 year old Para 2 woman with Endometrial adenocarcinoma FIGO grade 1 likely confined to an endometrial polyp. She is scheduled for BRITTANY-BSO, washings on 06/11/2013. Please see note from Minoo Messer NP from 05/06/2013 for preop H&P and updated recommendations from HEIDE Messer from 05/27/2013. Her input is greatly appreciated. This patient's pathology was discussed with Freel[employer] Court Reporter/Onc who does not recommend pelvic LND. Erika has multiple medical problems and is disabled by debilitating back pain for which she walks with a cane and is on chronic narcotics. Her back pain was exacerbated after both of her D&Cs. After taking her medical morbidities into account we discussed the type of surgery to be performed. My goals for her are to minimize her postop back pain and risk for VTE. I have recommended BRITTANY-BSO due to the shortest time on the OR table and avoiding extreme positioning of steep trendelenberg. We discussed that she would be a candidate for TLH-BSO, but it would be a longer surgery with extreme positioning that would likely exacerbate her back pain. After discussion of expected postop hospital stay 1 to 2 days and recovery of 4-6 weeks from a pfannenstiel incision she agrees to an abdominal approach. We, also discussed that her postop pain management may be a challenge. She will be unable to take NSAIDs due to the use of lovenox. We will have to increase her hydrocodone postop and may need assistance from the Pain Clinic if her pain is unable to be controlled by that. I will order preop celebrex, gabapentin and tylenol in preop to assist with postop pain. Preop venodynes and prophylactic antibiotics (gent and clinda) have been ordered. Preop labs and EKG have been done. Plan to proceed with BRITTANY-BSO, pelvic washings tomorrow. Antoinette Ambrose MD * Vera Fonseca, RN - 06/04/2013 1126 EDT Erika Husain has been instructed as follows regarding medication administration for the day of the scheduled procedure. Date of Surgery: 06/11/13 Instructions for Taking Medications Day of Surgery Medication Last Dose Hold DOS Take DOS HYDROcodone-acetaminophen (LORTAB) 10-500 mg per tablet X enoxaparin (LOVENOX) 60 mg/0.6 mL injection For after surgery traZODone (DESYREL) 100 mg tablet X pm HYDROcodone-acetaminophen (NORCO) 10-325 mg per tablet Not taking meloxicam (MOBIC) 7.5 mg tablet 06/04/13 X zafirlukast (ACCOLATE) 20 mg tablet X polyethylene glycol (GLYCOLAX) 17 gram/dose powder X omeprazole (PRILOSEC) 20 mg capsule X CLARITIN 10 mg tablet X duloxetine (CYMBALTA) 60 mg capsule X CALCIUM CARBONATE/VITAMIN D3 (CALCIUM WITH VITAMIN D ORAL) 06/04/13 X albuterol (PROVENTIL) 2.5 mg /3 mL (0.083 %) nebulizer solution X albuterol (PROVENTIL HFA, VENTOLIN HFA) 90 mcg/actuation inhaler X lovastatin (MEVACOR) 10 mg tablet X fluticasone (FLONASE) 50 mcg/actuation nasal spray X budesonide-formoterol HFA (SYMBICORT) 80-4.5 mcg/actuation HFAA inhaler X metoprolol (LOPRESSOR) 25 mg tablet X fluocinonide (LIDEX) 0.05 % cream X acetaminophen (TYLENOL) 650 mg tablet X prn ketoconazole (NIZORAL) 2 % cream X lubiprostone (AMITIZA) 24 mcg capsule X prn MULTIVITAMINS (MULTIVITAMIN ORAL) 06/04/13 X Other medication instructions: Stop supplements 7 days prior to surgery documented in this encounter H&P Notes * PHARMACEUTICAL COMPOUNDING SUPERVISOR, SCAN 2 - 06/19/2013 1421 EDT * Raleigh Griggs MD - 06/11/2013 0816 EDT The preoperative history and physical which was performed within 30 days of this procedure has been reviewed and the clinically appropriate elements of the physical examination have been repeated. There are no changes to the documented history and physical or if so such changes are documented below RALEIGH GRIGGS MD 06/11/2013 8:16 documented in this encounter Procedure Notes * PHARMACEUTICAL COMPOUNDING SUPERVISOR, SCAN 2 - 06/20/2013 0911 EDTAssociated Order(s): ECG REPORT - SCANNED * PHARMACEUTICAL COMPOUNDING SUPERVISOR, SCAN 2 - 06/19/2013 1421 EDTAssociated Order(s): ECG REPORT - SCANNED * PHARMACEUTICAL COMPOUNDING SUPERVISOR, SCAN 2 - 06/19/2013 1421 EDTAssociated Order(s): ECG REPORT - SCANNED * PHARMACEUTICAL COMPOUNDING SUPERVISOR, SCAN 2 - 06/19/2013 1421 EDTAssociated Order(s): TRANSFUSION RECORD - SCANNED * PHARMACEUTICAL COMPOUNDING SUPERVISOR, SCAN 2 - 06/10/2013 1314 EDTAssociated Order(s): ORDERS - SCANNED documented in this encounter Consult Notes * Catherine Gaming - 06/13/2013 1403 EDT Anesthesia Pain Service Inpatient Consult Name: Erika Husain :: Age: 53 y.o. :: , :: Location: [facility] Surgical Floor Requesting physician: Antoinette Ambrose MD Anesthesiology attending: Mekhi Reason for consult: acute on chronic pain Cc: HPI: Patient is a 53 y.o. year old female with a long history of using Vicodin 10mg 4-6x daily for her chronic lower back pain. She is POD #2 s/p BRITTANY BSO. APS is asked by the bench worker team to review her pain management to see if there is any room for improvement. ROS: Past Medical History Diagnosis Date ??? Fibromyalgia ??? Obesity ??? Asthma ??? Depression ??? Anxiety ??? GERD (gastroesophageal reflux disease) ??? Fibromyalgia ??? confirmed 1979,1982 2 vaginal deliveries ??? Lung disease ??? Complication of anesthesia respiratory ??? IBS (irritable bowel syndrome) ??? Hypertension ??? Lung disease ??? IBS (irritable bowel syndrome) ??? Factor PI ??? Arthritis osteoarthritis, psoriatic arthritis ??? Hyperlipidemia ??? Constipation Patient Active Problem List Diagnoses ??? Myalgia and Myositis ??? Arthropathy ??? [...] GERD (gastroesophageal reflux disease) ??? Headache ??? Malignant neoplasm of corpus uteri, except isthmus Past Surgical History Procedure Date ??? Appendectomy ??? Hernia repair ??? Carpal tunnel release 22 years ago right endoscopic by dr. Hamilton ??? Knee surgery right ??? Joint replacement 04/15/2010 Right TKR ([place]) ??? Colonoscopy 2011 Home Medications No current facility-administered medications on file prior to encounter. Current Outpatient Prescriptions on File Prior to Encounter Medication Sig Dispense Refill ??? traZODone (DESYREL) 100 mg tablet TAKE ONE TO TWO TABLETS BY MOUTH AT BEDTIME NEEDED FOR SLEEP 56 Tab 1 ??? HYDROcodone-acetaminophen (NORCO) 10-325 mg per tablet Take 1 Tab by mouth every 6 hours as needed for Pain for 28 days. DO NOT FILL PRIOR TO START DATE 112 Tab 0 ??? meloxicam (MOBIC) 7.5 mg tablet Take 1 Tab by mouth daily. 30 Tab 2 ??? polyethylene glycol (GLYCOLAX) 17 gram/dose powder Take 17 g by mouth daily. 1 Bottle 3 ??? CLARITIN 10 mg tablet TAKE ONE TABLET BY MOUTH EVERY DAY 90 Each 1 ??? duloxetine (CYMBALTA) 60 mg capsule Take 1 Cap by mouth daily. 30 Cap 11 ??? CALCIUM CARBONATE/VITAMIN D3 (CALCIUM WITH VITAMIN D ORAL) Take by mouth daily. ??? albuterol (PROVENTIL) 2.5 mg /3 mL (0.083 %) nebulizer solution Take 3 mL by nebulization every4 hours as needed for Wheezing. 1 Box 1 ??? albuterol (PROVENTIL HFA, VENTOLIN HFA) 90 mcg/actuation inhaler Inhale 2 Puffs as directed every 4 hours. 1 Inhaler 1 ??? lovastatin (MEVACOR) 10 mg tablet Take 1 Tab by mouth daily. 90 Tab 4 ??? acetaminophen (TYLENOL) 650 mg tablet Take 1 Tab by mouth every 4 hours as needed for Pain. ??? ketoconazole (NIZORAL) 2 % cream Apply topically daily. Apply to affect area(s) as directed. 1 Tube 1 ??? lubiprostone (AMITIZA) 24 mcg capsule Take 24 mcg by mouth as needed. ??? MULTIVITAMINS (MULTIVITAMIN ORAL) Take 1 Tab by mouth daily. Hospital Medications Current Facility-Administered Medications Medication Route Frequency ??? albuterol (VENTOLIN HFA) inhaler 2 Puff inhalation Q4H PRN ??? budesonide-formoterol HFA (SYMBICORT) 80-4.5 mcg/actuation inhaler 2 Puff inhalation BID ??? montelukast (SINGULAIR) tablet 10 mg oral QHS ??? albuterol (PROVENTIL) nebulizer solution 2.5 mg nebulization Q4H PRN ??? triamcinolone (ARISTOCORT) 0.5 % cream topical BID ??? enoxaparin (LOVENOX) injection 60 mg subcutaneous DAILY ??? oxyCODONE (ROXICODONE) immediate release tablet 5-10 mg oral Q3H PRN ??? morphine injection 2-4 mg intravenous Q3H PRN ??? sodium chloride 0.9 % flush 3 mL intravenous Q8H ??? DULoxetine (CYMBALTA) capsule 60 mg oral DAILY ??? fluticasone (FLONASE) nasal spray 1 [place] nasal - both DAILY ??? lovastatin (MEVACOR) tablet 10 mg oral DAILY ??? metoprolol (LOPRESSOR) tablet 25 mg oral BID ??? pantoprazole (PROTONIX) tablet 20 mg oral BID ??? traZODone (DESYREL) tablet 100 mg oral AT BEDTIME PRN ??? diphenhydrAMINE (BENADRYL) capsule 25-50 mg oral Q6H PRN Or ??? diphenhydrAMINE (BENADRYL) injection 25-50 mg intravenous Q6H PRN ??? ondansetron (PF) (ZOFRAN) injection 4 mg intravenous Q6H PRN Or ??? ondansetron (ZOFRAN-ODT) disintegrating tablet 4 mg oral Q6H PRN ??? promethazine (PHENERGAN) tablet 12.5-25 mg oral Q6H PRN ??? docusate sodium (COLACE) capsule 100 mg oral BID ??? acetaminophen (TYLENOL) tablet 325-650 mg oral Q4H ??? dextrose 50 % solution 12.5 g intravenous PRN ??? glucagon (human recombinant) injection 1 mg intramuscular PRN ??? insulin aspart (NOVOLOG FLEXPEN) injection subcutaneous TID WC Allergies Allergies Allergen Reactions ??? Latex, Natural [...] Soy Constipation ??? Wheat Containing Prod Constipation SHx: NC FHx: Labs: Lab Results Component Value Date WBC 8.19 06/13/2013 WBC 7.01 07/24/2009 HGB 7.7* 06/13/2013 HGB 13.6 07/24/2009 HCT 22.3* 06/13/2013 HCT 38.4 07/24/2009 MCV 86 06/13/2013 MCV 89 07/24/2009 PLT 169 06/13/2013 PLT 330* 07/24/2009 Lab Results Component Value Date INR 1.0 06/11/2013 INR 1.0 06/11/2013 INR 1.0 05/06/2013 PROTIME 11.8 06/11/2013 PROTIME 11.4 06/11/2013 PROTIME 11.4 05/06/2013 PE: Vitals: Blood pressure 97/53, pulse 74, temperature 36.1 ??C (97 ??F), temperature source Temporal,resp. rate 16, height 152.4 cm (60), weight 100.699 kg (222 lb), last menstrual period 03/09/2010,SpO2 95.00%. Neuro: AAA x 3 NAD, sitting in bed CV: RRR Pulm: CTA Abd: tender to palpation in all quadrants. No rebound tenderness. Assessment: Patient is a 53 y.o. yo female with a long history of using Vicodin 10mg 4-6x daily forher chronic lower back pain. She is POD #2 s/p BRITTANY BSO. She states that her pain has been between 6-10 depending on how much she is moving. It is a combination of her chronic lower back pain and her surgical pain. She states the LBP is no worse than usual. The abdominal pain is bothersome but she feels it is slowly improving. Recommendations: The medications that she has been receiving the past two days have been appropriate. Continue with the scheduled tylenol and the Oxycodone 10mg PO q3hrs PRN. The patient stated that she would likely go back to her Vicodin once she is discharged - which is fine as long as she takes into consideration of the total amount of tylenol that she is consuming over 24hrs in the Vicodin. My only recommendation is to add an NSAID. In light of the anemia and questionable bleeding issues,consider a non-platelet inhibitor such as Celebrex. The patient stated she is satisfied with her pain management and is aware that her pain is more difficult to control than average. Overall she feels she is slowly improving. 14:03 06/13/2013 CATHERINE GAMING MD documented in this encounter Nursing Notes * PHARMACEUTICAL COMPOUNDING SUPERVISOR, SCAN 2 - 06/19/2013 1421 EDT documented in this encounter OR Notes * OR PreOp - PHARMACEUTICAL COMPOUNDING SUPERVISOR, SCAN 2 - 06/19/2013 1421 EDT * OR Surgeon - Antoinette Ambrose MD - 06/12/2013 0955 EDT OPERATIVE REPORT SERVICE DATE: 06/11/2013 SURGEON: Antoinette Ambrose MD TUCK POINTER HELPER: Raleigh Griggs MD and Leatha Mckenna, [facility] PREOPERATIVE DIAGNOSIS: Grade 1 endometrial adenocarcinoma. POSTOPERATIVE DIAGNOSIS: Grade 1 endometrial adenocarcinoma. PROCEDURE: An exploratory laparotomy via Pfannenstiel incision with total abdominal hysterectomy, bilateral salpingo-oophorectomy, washings and cystoscopy. ANESTHESIA: General and 0.25% Marcaine for local. INDICATIONS: This is a 53-year-old woman who has a history of a grade 1 endometrial adenocarcinoma on polyp and atypical hyperplasia on D and C specimen. No evidence of extrauterine disease was notedand it was thought that the endometrial cancer was likely confined to the polyp; however, given its presence, as well as the presence of atypia in the remaining endometrium, the patient was consentedfor a hysterectomy, bilateral salpingo-oophorectomy. Given her history of chronic severe low back pain that is exacerbated by lithotomy position, the patient elected for an abdominal hysterectomy. Risks and benefits of the procedure were discussed with the patient prior to the procedure and consentwas signed. FINDINGS: Exam under anesthesia was limited by body habitus. Two small 2 x 2 cm anterior subserosalfibroids, otherwise normal-appearing uterus, tubes and ovaries. A small 5 x 5 mm right pelvic sidewall cyst and bilateral jets seen on cystoscopy. Visualization was limited due to a deep, narrow pelvis. NARRATIVE: The patient was taken to the operating room with an IV in place where general anesthesiawas administered and found to be adequate. The patient was prepped and draped in normal sterile fashion in the dorsal position for an abdominal procedure. Her vagina was also prepped in the frog leg position and a Kam catheter was placed. The skin incision was made with the scalpel and carried through to the underlying layer of fascia with cautery. The fascia was incised in the midline, the incision extended laterally. The inferior aspect of this incision was grasped with Kochers, tented up and dissected off the underlying rectus muscles, both bluntly and sharply. Attention was then turned to the superior aspect of this incision, which in a similar fashion was grasped with Kochers, tented up and dissected off the underlying rectus muscles, both bluntly and sharply. Natural diastasis was seen between the rectus muscles and the peritoneum was identified and entered bluntly. The uterus was identified. The bowel was packed with wet laps and the Bookwalter retractor was placed. The bilateral cornua were grasped with long bill clamps for retraction and the right round ligament was grasped with a Arnie and ligated with 0 Vicryl, and it was then transected with cautery. The anterior leaf of the broad ligament was transected to midline over the bladder flap. Due to an anterior fibroid on the right side visualization of the right bladder reflection was limited. Attention was then turned to the left round ligament, which was transected with cautery and the anterior broad ligament on the left side was connected to the right and the bladder flap was made. The infundibulopelvic ligament was skeletonized and identified on the left side, was clamped and cut. The IP pedicle was attempted to be ligated with a tie on a passer. When the pedicle was flashed it slipped out of the clamp. The pedicle was then able to be grasped with a right angle clamp and double ligated with good hemostasis. It was difficult to visualize this on the right side, and so the uterine arteries on the left were skeletonized. The uterine artery was clamped, transected and ligated; however, increased bleeding was noted at this time. It all appeared to be bleeding from the uterus andso the vessels were attempted to be clipped with surgical clips; however, hemostasis could not be obtained, given that it was felt to be backbleeding. Attention was then turned to the vessels on the right side. The infundibulopelvic ligament was further skeletonized and then clamped and ligated. The uterine artery on the right side was skeletonized, clamped and suture ligated. The bleeding from the left side had improved some, but was still foundto be not hemostatic. Another descending bite was taken on the left side. Upon removing the clamp it was found that it had been placed over one of the clips that had been placed on a backbleeding vessel. The uterine vessels were not adequately ligated due to this and were difficult to find due to the brisk bleeding. The surgical clips were attempted to be placed and were not effective. The vesselwas found, clamped and ligated and hemostasis was obtained. The majority of the blood loss was while trying to find the severed uterine vessel. Several more descending bites were taken in a similar fashion on both sides, clamping and ligating. Once below the cervix, the vagina was clamped and transe cted and the specimen removed. The vaginal cuff was closed with 0 Vicryl interrupted [id number] stitches. Hemostasis was then noted at the vaginal cuff with some mild raw, but no active bleedingwas noted from the left pelvic sidewall. Surgicel was placed in that area. All pedicles were evaluated again and hemostasis was noted. The abdomen was irrigated and then the fascia was closed with #1PDS in a running fashion. The subcutaneous tissue was irrigated and bleeding vessels cauterized. Interrupted sutures of 2-0 Vicryl were placed to reapproximate the subcu and the skin was closed with hudson. Marcaine was injected prior to skin closure for increased pain control. The patient was agnieszka nsed and dried and a sterile dressing applied. Cystoscopy was then performed with indigo carmine injected intravascularly and both ureteral jets were seen. No damage to the bladder was noted. The dome was intact. The patient tolerated the procedure well. She received gentamicin and clindamycin preoperatively, but these were redosed postoperatively, given the extensive blood loss. The patient was extubated and brought to the PACU in satisfactory condition. Dr Antoinette Ambrose was scrubbed and present for the entire procedure. ESTIMATED BLOOD LOSS: 2000 mL. FLUIDS: LR 3800 mL. URINE OUTPUT: 100 mL. SPECIMENS: Washings to the uterus, bilateral fallopian tubes and bilateral ovaries and right pelvicsidewall cyst. FOREIGN OBJECTS RETAINED: Kam catheter and Surgicel. COMPLICATIONS: None. CONDITION: Good. DISPOSITION: PACU. Unless otherwise noted, there were no complications, no blood loss, no cultures obtained, no specimens removed, and no drains retained. Antoinette Ambrose MD 09 15 AM / Raleigh Griggs MD rn Confirmation: [id number] Dictation ID: [id number] cc: Raleigh Griggs MD [facility] Antoinette Ambrose MD * Anesthesia Procedure Notes - PHARMACEUTICAL COMPOUNDING SUPERVISOR, SCAN 2 - 06/11/2013 1430 EDT * Anesthesia Procedure Notes - PHARMACEUTICAL COMPOUNDING SUPERVISOR, SCAN 2 - 06/11/2013 1403 EDT * OR PreOp - PHARMACEUTICAL COMPOUNDING SUPERVISOR, SCAN 2 - 06/11/2013 1300 EDT * Anesthesia Preprocedure Evaluation - PHARMACEUTICAL COMPOUNDING SUPERVISOR, SCAN 2 - 06/11/2013 0917 EDT documented in this encounter Miscellaneous Notes * Scanned Note-Null - PHARMACEUTICAL COMPOUNDING SUPERVISOR, SCAN 2 - 06/19/2013 1421 EDT * Scanned Note-Null - PHARMACEUTICAL COMPOUNDING SUPERVISOR, SCAN 2 - 06/19/2013 1421 EDT * Plan of Care - Lesli Garcia V - 06/14/2013 1525 EDT Problem: INFECTION Goal: Signs & Symptoms Of Infections Are Decreased Or Avoided Outcome: Ongoing D: Patient remains afebrile. A: Incision assessed, hudson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 Darryl JARVIS BLOOD BANK ORDERABLE S Performing Organization Address [facility] Co de Phone Number [facility] [address] [place] [address] * PREPARE RED BLOOD CELLS (06/12/2013 7:22 EDT) Product Code E0382 -3 RED BLOOD CELLS, Leukocytes Reduced [facility] Donor Number [id number] [facility] Unit ABO AB [facility] Unit Rh POS [facility] Unit Status Transfuse [facility] Blood specimen (specimen) 06/12/2013 7:22 EDT Raleigh Griggs MD BLOOD BANK ORDERABLE S Performing Organization Address [facility] Co de Phone Number [facility] [address] [place] [address] * TROPONIN I (06/12/2013 7:13 EDT) Pathologist [facility] Troponin I (ng/mL) <0.034 <0.034 ng/ml [facility] 06/12/2013 7:13 EDT 06/12/2013 7:32 EDT Raleigh Griggs MD CHEMISTRY & BLOOD GA S ORDERABLES Performing Organization Address [facility] de Phone Number [facility] [address] [place] [address] * (ABNORMAL) CK MB WITH TOTAL CK (06/12/2013 7:13 EDT) Pathologist [facility] CK 414(H) 30 - 135 U/L [facility] MB 2.16 <2.95 ng/ml [facility] Blood specimen (specimen) 06/12/2013 7:13 EDT 06/12/2013 7:32 EDT Matilde Sales MD CHEMISTRY & BLOOD GA S ORDERABLES Performing Organization Address [facility] Co de Phone Number [facility] [address] [place] [address] * (ABNORMAL) CALCIUM (06/12/2013 7:13 EDT) Calcium 7.9(L) 8.5 - 10.5 mg/dl [facility] Calculated Calcium 9.5 8.5 - 10.5 mg/dl [facility] Blood specimen (specimen) 06/12/2013 7:13 EDT 06/12/2013 7:32 EDT Raleigh Griggs MD CHEMISTRY & BLOOD GA S ORDERABLES Performing Organization Address [facility] Co de Phone Number [facility] [address] [place] [address] * (ABNORMAL) PHOSPHORUS (06/12/2013 7:13 EDT) Phosphorus 4.9(H) 2.5 - 4.5 mg/dl [facility] Blood specimen (specimen) 06/12/2013 7:13 EDT 06/12/2013 7:32 EDT Raleigh Griggs MD CHEMISTRY & BLOOD GA S ORDERABLES Performing Organization Address [facility] Co de Phone Number [facility] [address] [place] [address] * MAGNESIUM (06/12/2013 7:13 EDT) Magnesium 1.9 1.7 - 2.8 mg/dl [facility] Blood specimen (specimen) 06/12/2013 7:13 EDT 06/12/2013 7:32 EDT Raleigh Griggs MD CHEMISTRY & BLOOD GA S ORDERABLES Performing Organization Address [facility] Co de Phone Number [facility] [address] [place] [address] * CREATININE (06/12/2013 7:13 EDT) Creatinine 0.97 0.52 - 1.04 mg/dl [facility] GFR, Calculated >60 >60 ml/min/1.7 3m2 [facility] Blood specimen (specimen) 06/12/2013 7:13 EDT 06/12/2013 7:32 EDT Raleigh Griggs MD CHEMISTRY & BLOOD GA S ORDERABLES Performing Organization Address [facility] Co de Phone Number [facility] [address] [place] [address] * (ABNORMAL) BUN (06/12/2013 7:13 EDT) BUN 29(H) 10 - 26 mg/dl [facility] Blood specimen (specimen) 06/12/2013 7:13 EDT 06/12/2013 7:32 EDT Raleigh Griggs MD CHEMISTRY & BLOOD GA S ORDERABLES Performing Organization Address [facility] de Phone Number [facility] [address] [place] [address] * (ABNORMAL) ELECTROLYTES (06/12/2013 7:13 EDT) Sodium 132(L) 136 - 145 mEq/L [facility] Potassium 4.8 3.5 - 5.0 mEq/L [facility] Chloride 101 96 - 110 mEq/L [facility] CO2 25 24 - 32 mEq/L [facility] Blood specimen (specimen) 06/12/2013 7:13 EDT 06/12/2013 7:32 EDT Raleigh Griggs MD CHEMISTRY & BLOOD GA S ORDERABLES Performing Organization Address [facility] de Phone Number [facility] [address] [place] [address] * (ABNORMAL) HEMAGRAM (06/12/2013 7:13 EDT) WBC 12.04 4.0 - 12.4 K/cmm [facility] RBC 2.23(L) 3.86 - 5.04 M/cmm [facility] Hemoglobin 6.9(LL) 11.6 - 15.2 gm/dl [facility] HCT 20.2(LL) 34.9 - 44.4 % [facility] MCV 91 81 - 98 fl [facility] MCH 30.9 26.7 - 33.3 pg [facility] MCHC 34.1 32.1 - 35.9 gm/dl [facility] PLT 239 141 - 320 K/cmm [facility] RDW-CV 12.3 11.7 - 14.6 % [facility] Blood specimen (specimen) 06/12/2013 7:13 EDT 06/12/2013 7:32 EDT Raleigh Griggs MD HEMATOLOGY & PF4 ORD ERABLES Performing Organization Address City/[facility]/ZIP Co de Phone Number [facility] [address] [place] [address] * INPATIENT ADD-ON (06/12/2013 3:00 EDT) Tests to be added CKMB [facility] Number for problems Not Given [facility] Accession number [id number] [facility] 06/12/2013 3:00 EDT 06/12/2013 3:04 EDT Matilde Sales MD HEMATOLOGY & PF4 ORD ERABLES Performing Organization Address City/[facility] Co de Phone Number [facility] [address] [place] [address] * PORTABLE CHEST 1 VIEW (06/12/2013 1:59 EDT) Anatomical Region Laterality Modality Other 06/12/2013 1:59 EDT 06/12/2013 8:00 EDT Narrative 06/12/2013 8:00 EDT PORTABLE CHEST 1 VIEW ??06/12/2013 1:59 AM Signs and Symptoms/Comments: ??new onset chest pain POD#1 s/p open hysterectomy with 2L EBL Comparison: September 13, 2012 Findings: A single portable AP radiograph of the chest shows that allowing for overlying soft tissue and portable technique the lungs are clear aside from calcified granulomas in the right upper lung.. No pleural abnormality is seen. The cardiac silhouette is within normal limits for size. There is a prominent dilated gas-filled loop of bowel in the upper abdomen. Impression: 1. No acute finding in the chest. 2. Prominent gas-filled loop of bowel in the upper abdomen which could be further evaluated with dedicated abdominal radiographs as clinically indicated.. I have personally reviewed the images and the above interpretation and agree with the findings. Procedure Note Sharif Garzon MD - 06/12/2013 PORTABLE CHEST 1 VIEW 06/12/2013 1:59 AM Signs and Symptoms/Comments: new onset chest pain POD#1 s/p open hysterectomy with 2L EBL Comparison: September 13, 2012 Findings: A single portable AP radiograph of the chest shows that allowing for overlying soft tissue and portable technique the lungs are clear aside from calcified granulomas in the right upper lung.. No pleural abnormality is seen. The cardiac silhouette is within normal limits for size. There is a prominent dilated gas-filled loop of bowel in the upper abdomen. Impression: 1. No acute finding in the chest. 2. Prominent gas-filled loop of bowel in the upper abdomen which could be further evaluated with dedicated abdominal radiographs as clinically indicated.. I have personally reviewed the images and the above interpretation and agree with the findings. Matilde Sales MD IMG DIAGNOSTIC IMAGI NG ORDERABLES * (ABNORMAL) CK MB WITH TOTAL CK (06/12/2013 1:21 EDT) Pathologist [facility] CK 398(H) 30 - 135 U/L [facility] MB 1.62 <2.95 ng/ml [facility] 06/12/2013 1:21 EDT 06/12/2013 1:30 EDT Matilde Sales MD CHEMISTRY & BLOOD GA S ORDERABLES [facility] [address] [place] [address] * TROPONIN I (06/12/2013 1:21 EDT) Pathologist [facility] Troponin I (ng/mL) <0.034 <0.034 ng/ml [facility] Blood specimen (specimen) 06/12/2013 1:21 EDT 06/12/2013 1:30 EDT Matilde Sales MD CHEMISTRY & BLOOD GA S ORDERABLES Performing Organization Address [facility] Co de Phone Number [facility] [address] [place] [address] * (ABNORMAL) HEMAGRAM (06/12/2013 1:21 EDT) WBC 14.79(H) 4.0 - 12.4 K/cmm [facility] RBC 2.57(L) 3.86 - 5.04 M/cmm [facility] Hemoglobin 7.6(L) 11.6 - 15.2 gm/dl [facility] HCT 23.3(L) 34.9 - 44.4 % [facility] MCV 91 81 - 98 fl [facility] MCH 29.7 26.7 - 33.3 pg [facility] MCHC 32.7 32.1 - 35.9 gm/dl [facility] PLT 274 141 - 320 K/cmm [facility] RDW-CV 12.1 11.7 - 14.6 % [facility] Blood specimen (specimen) 06/12/2013 1:21 EDT 06/12/2013 1:30 EDT Matilde Sales MD HEMATOLOGY & PF4 ORD ERABLES Performing Organization Address [facility] de Phone Number [facility] [address] [place] [address] * EKG 12-LEAD (06/12/2013 1:11 EDT) 06/12/2013 1:11 EDT Narrative [facility] - 06/19/2013 15:04 EDT ?[facility] ? Test Date: ?2013-06-12 Pat Name: ? ERIKA HUSAIN ? Department: ?? [facility] ? Room: ? SB575 Gender: ? F ?Stunt Driver: ?? [id number] : ?1960 ? Requested By: MATILDE SALES MD Order Number: [id number] ? Reading MD: ?? BRITNEY GASTON MD ? Measurements Intervals ?[place] ? Rate: ? 103 ?P: ?46 [place]: ? 151 ?QRS: ?38 QRSD: ? 85 ? T: ?39 QT: ? 320 ? QTc: ?380 ? Interpretive Statements SINUS TACHYCARDIA LOW QRS VOLTAGE IN PRECORDIAL LEADS NONSPECIFIC T-WAVE ABNORMALITY ABNORMAL RHYTHM ECG Compared to ECG 12/14/2009 09:48:22 Sinus tachycardia now present T-wave abnormality now present Electronically Signed On 06-19-13 15:04:37 EDT by BRITNEY FELDMAN MD Procedure Note Britney Feldman Jr., MD - 06/19/2013 [facility] Test Date: 2013-06-12 Pat Name: ERIKA HUSAIN Department: [facility] Room: [facility] Gender: F Stunt Driver: [id number] : 1960 Requested By: MATILDE SALES MD Order Number: [id number] Reading MD: BRITNEY FELDMAN MD Measurements Intervals [place] Rate: 103 P: 46 NJ: 151 QRS: 38 QRSD: 85 T: 39 QT: 320 QTc: 380 Interpretive Statements SINUS TACHYCARDIA LOW QRS VOLTAGE IN PRECORDIAL LEADS NONSPECIFIC T-WAVE ABNORMALITY ABNORMAL RHYTHM ECG Compared to ECG 12/14/2009 09:48:22 Sinus tachycardia now present T-wave abnormality now present Electronically Signed On 06-19-13 15:04:37 EDT by BRITNEY FELDMAN MD Matilde Sales MD CARDIAC ECG ORDERABL ES [facility] [address] [place] [address] * (ABNORMAL) GLUCOSE, GLUCOMETER (06/11/2013 23:45 EDT) Glucose, Fingerstick 161(H) 70 - 100 mg/dl [facility] Talent Acquisition Administrator ID [id number] [facility] Comment:Test Performed by [facility] 06/11/2013 23:4 5 EDT 06/12/2013 0:38 EDT Antoinette Ambrose MD CHEMISTRY & BLOOD GA S ORDERABLES [facility] [address] [place] [address] * SURGICAL PATHOLOGY (06/11/2013 21:01 EDT) Pathology Report: SURGICAL PATHOLOGY REPORT Reports generated via electronic interface contain original data; however they are lacking the format of the original report. Caution should be taken when reading/interpreti ng unformatted reports. Name: ? RUT ERIKA L ? Accession #: ? [id number] ? : ? 1960 (Age: 53) ??F ? Collect Date: ? 06/11/2013 ? Location: ? SB05 ? Receive Date: ? 06/11/2013 ? Provider: ANTOINETTE AMBROSE MD Copy to: KESHAWN MEJIA MD ? Final Pathologic Diagnosis: A. UTERUS, CERVIX, BILATERAL TUBES AND OVARY, HYSTERECTOMY WITH BILATERAL SALPINGO-OOPHORECT TWAN: - ??Endometrium with residual atypical complex hyperplasia. - ??Myometrium with leiomyomata ??(3.9 cm in greatest dimension) ?? - ??Serosa with no pathologic features. - ??Cervix with no pathologic features. - ??Fallopian tube (right) with benign paratubal cyst. - ??Fallopian tube (left) no pathologic features. - ??Bilateral ovaries with no pathologic features B. PELVIC CYST, RIGHT, EXCISION: - ??Benign epithelial-lined cyst. Document reviewed and electronically signed by: NAY GARCIA MD Report ??Date: 06/14/2013 13:23 By the signature above, the attending physician certifies that he/she has personally conducted a gross and/or microscopic examination of the described specimens and rendered or confirmed the above diagnosis. Specimen(s) Received: A. ??Uterus, cervix, bilateral tubes and ovaries B. 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 ? Received fresh labelled with proper patient identification (initials B, T) and uterus, cervix, bilateral tubes and ovaries is an intact uterus and cervix (143 g, 10.0 cm cervix to fundus x 7.0 cm cornu to cornu x 4.5 cm anterior to posterior) left and right ovaries (left: 2.8 x 1.8 x 0.9 cm and right: 2.1 x 2.2 x 1.4 cm) and left and right fimbriated fallopian tubes (left: 4.5 cm length x 0.6 cm in diameter and right: 5.0 cm length x 0.6 cm in diameter). ??Both fallopian tubes are previously interrupted. ? The endometrium shows no mass, however a puckered 0.6 x 0.4 cm region in the posterior portion of the endometrium is identified which may represent a prior biopsy site. ??The remaining endometrium is monahan-pink and averages 0.1 cm in thickness. ??The myometrium is monahan and slightly trabecular and ranges from 2.0 cm to 3.5 cm in thickness. Within the myometrium there is a single nodular well-circumscribed nodule (3.9 cm in greatest dimension) which has a monahan-white whorled cut surface without hemorrhage or necrosis. The uterine serosa is smooth and glistening. The ectocervix is white, smooth and glistening, and the endocervix is slightly furrowed with a single polypoid lesion (0.5 cm in greatest dimension). The left and right ovaries have a glistening capsule. ??The left and right fallopian tubes have a glistening serosa and sectioning discloses a pinpoint lumen throughout. ?Reducer sections are submitted as follows: BLOCK DORMAN A1-A5- ??full thickness posterior endomyometrium in region of prior biopsy, entirely submitted A6- ??posterior lower uterine segment A7- ??full thickness endomyometrium, anterior, upper one-third A8- ??full thickness endomyometrium anterior, middle one-third A9- ??full thickness endomyometrium, anterior, lower one-third A10- ??whorled nodule, customer development representative A11- ??anterior cervix A12- ??posterior cervix A13- ??right fallopian tube A14- ??right ovary A15- ??left fallopian tube A16- ??left ovary B. ? Received in normal saline labelled with proper patient identification (initials B, T) and right pelvic cyst is a cystic structure measuring 0.9 x 0.6 x 0.5 cm. ??The cyst wall is translucent and white. ??The specimen has no cystic content. ??The specimen is entirely submitted as B1. Dr. Alicia 06/12/2013 02:02 PM End of Report [facility] 06/11/2013 21:0 1 EDT 06/11/2013 21:01 EDT Antoinette Ambrose MD PATHOLOGY ORDERABLES Performing Organization Address City/State/[facility] Co de Phone Number [facility] [address] [place] [address] * (ABNORMAL) HEMAGRAM (06/11/2013 19:42 EDT) WBC 17.52(H) 4.0 - 12.4 K/cmm [facility] RBC 2.83(L) 3.86 - 5.04 M/cmm [facility] Hemoglobin 8.5(L) 11.6 - 15.2 gm/dl [facility] HCT 25.8(L) 34.9 - 44.4 % [facility] MCV 91 81 - 98 fl [facility] MCH 30.1 26.7 - 33.3 pg [facility] MCHC 33.1 32.1 - 35.9 gm/dl [facility] PLT 285 141 - 320 K/cmm [facility] RDW-CV 12.1 11.7 - 14.6 % [facility] Blood specimen (specimen) 06/11/2013 19:42 EDT 06/11/2013 19:50 EDT Raleigh Griggs MD HEMATOLOGY & PF4 ORD ERABLES Performing Organization Address [facility] Co de Phone Number [facility] [address] [place] [address] * (ABNORMAL) HEMAGRAM (06/11/2013 18:13 EDT) WBC 17.34(H) 4.0 - 12.4 K/cmm [facility] RBC 2.88(L) 3.86 - 5.04 M/cmm [facility] Hemoglobin 8.6(L) 11.6 - 15.2 gm/dl [facility] HCT 26.4(L) 34.9 - 44.4 % [facility] MCV 92 81 - 98 fl [facility] MCH 29.8 26.7 - 33.3 pg [facility] MCHC 32.5 32.1 - 35.9 gm/dl [facility] PLT 271 141 - 320 K/cmm [facility] RDW-CV 12.1 11.7 - 14.6 % [facility] Blood specimen (specimen) 06/11/2013 18:13 EDT 06/11/2013 18:39 EDT Raleigh Griggs MD HEMATOLOGY & PF4 ORD ERABLES Performing Organization Address [facility] Co de Phone Number [facility] [address] [place] [address] * (ABNORMAL) GLUCOSE, GLUCOMETER (06/11/2013 17:05 EDT) Glucose, Fingerstick 211(H) 70 - 100 mg/dl [facility] Talent Acquisition Administrator ID [id number] [facility] Comment:Test Performed by [facility] 06/11/2013 17:0 5 EDT 06/11/2013 17:07 EDT Antoinette Ambrose MD CHEMISTRY & BLOOD GA S ORDERABLES Performing Organization Address [facility] Co de Phone Number [facility] [address] [place] [address] * (ABNORMAL) GLUCOSE, GLUCOMETER (06/11/2013 13:31 EDT) Glucose, Fingerstick 227(H) 70 - 100 mg/dl [facility] Talent Acquisition Administrator ID [id number] [facility] Comment:Test Performed by [facility] 06/11/2013 13:3 1 EDT 06/11/2013 13:50 EDT Antoinette Ambrose MD CHEMISTRY & BLOOD GA S ORDERABLES Performing Organization Address [facility] de Phone Number [facility] [address] [place] [address] * PHOSPHORUS (06/11/2013 13:15 EDT) Phosphorus 3.4 2.5 - 4.5 mg/dl [facility] Blood specimen (specimen) 06/11/2013 13:15 EDT 06/11/2013 13:38 EDT Leatha Mckenna MD CHEMISTRY & BLOOD GA S ORDERABLES Performing Organization Address [facility] de Phone Number [facility] [address] [place] [address] * (ABNORMAL) CALCIUM (06/11/2013 13:15 EDT) Calcium 7.9(L) 8.5 - 10.5 mg/dl [facility] Calculated Calcium 9.8 8.5 - 10.5 mg/dl [facility] Blood specimen (specimen) 06/11/2013 13:15 EDT 06/11/2013 13:38 EDT Leatha Mckenna MD CHEMISTRY & BLOOD GA S ORDERABLES Performing Organization Address [facility] de Phone Number [facility] [address] [place] [address] * (ABNORMAL) MAGNESIUM (06/11/2013 13:15 EDT) Magnesium 1.5(L) 1.7 - 2.8 mg/dl [facility] Blood specimen (specimen) 06/11/2013 13:15 EDT 06/11/2013 13:38 EDT Leatha Mckenna MD CHEMISTRY & BLOOD GA S ORDERABLES Performing Organization Address City/[facility]/ZIP Co de Phone Number [facility] [address] [place] [address] * BUN (06/11/2013 13:15 EDT) BUN 20 10 - 26 mg/dl [facility] Blood specimen (specimen) 06/11/2013 13:15 EDT 06/11/2013 13:38 EDT Leatha Mckenna MD CHEMISTRY & BLOOD GA S ORDERABLES Performing Organization Address City/[facility]/ZIP Co de Phone Number [facility] [address] [place] [address] * CREATININE (06/11/2013 13:15 EDT) Creatinine 0.56 0.52 - 1.04 mg/dl [facility] GFR, Calculated >60 >60 ml/min/1.7 3m2 [facility] Blood specimen (specimen) 06/11/2013 13:15 EDT 06/11/2013 13:38 EDT Leatha Mckenna MD CHEMISTRY & BLOOD GA S ORDERABLES Performing Organization Address [facility] de Phone Number [facility] [address] [place] [address] * ELECTROLYTES (06/11/2013 13:15 EDT) Sodium 139 136 - 145 mEq/L [facility] Potassium 4.3 3.5 - 5.0 mEq/L [facility] Chloride 106 96 - 110 mEq/L [facility] CO2 27 24 - 32 mEq/L [facility] Blood specimen (specimen) 06/11/2013 13:15 EDT 06/11/2013 13:38 EDT Leatha Mckenna MD CHEMISTRY & BLOOD GA S ORDERABLES Performing Organization Address City/[facility]/ZIP Co de Phone Number [facility] [address] [place] [address] * PROTIME (06/11/2013 13:15 EDT) Pro Time 11.8 9.5 - 13.1 secs [facility] I.N.R. 1.0 0.9 - 1.1 Ratio [facility] Comment: Moderate Intensity Coumadin INR = 2.0-3.0 Adjustments in anticoagulant therapy dose should be based upon the INR and NOT the Pro Time. Blood specimen (specimen) 06/11/2013 13:15 EDT 06/11/2013 13:38 EDT Leatha Mckenna MD HEMATOLOGY & PF4 ORD ERABLES Performing Organization Address [facility] Co de Phone Number [facility] [address] [place] [address] * FIBRINOGEN (06/11/2013 13:15 EDT) Fibrinogen 178 171 - 384 mg/dl [facility] Blood specimen (specimen) 06/11/2013 13:15 EDT 06/11/2013 13:38 EDT Leatha Mckenna MD HEMATOLOGY & PF4 ORD ERABLES Performing Organization Address [facility] Co de Phone Number [facility] [address] [place] [address] * (ABNORMAL) HEMAGRAM (06/11/2013 13:15 EDT) WBC 19.19(H) 4.0 - 12.4 K/cmm [facility] RBC 3.00(L) 3.86 - 5.04 M/cmm [facility] Hemoglobin 9.0(L) 11.6 - 15.2 gm/dl [facility] HCT 27.3(L) 34.9 - 44.4 % [facility] MCV 91 81 - 98 fl [facility] MCH 30.1 26.7 - 33.3 pg [facility] MCHC 33.0 32.1 - 35.9 gm/dl [facility] PLT 290 141 - 320 K/cmm [facility] RDW-CV 12.4 11.7 - 14.6 % [facility] Blood specimen (specimen) 06/11/2013 13:15 EDT 06/11/2013 13:38 EDT Leatha Mckenna MD HEMATOLOGY & PF4 ORD ERABLES Performing Organization Address [facility] de Phone Number [facility] [address] [place] [address] * PTT (06/11/2013 11:05 EDT) PTT 27 26 - 37 secs [facility] Comment:Therapeutic Heparin range: 65-100 seconds Blood specimen (specimen) 06/11/2013 11:05 EDT 06/11/2013 11:19 EDT Gene Hanson MD HEMATOLOGY & PF4 ORDERABLES Performing Organization Address [facility] de Phone Number [facility] [address] [place] [address] * PROTIME (06/11/2013 11:05 EDT) Pro Time 11.4 9.5 - 13.1 secs [facility] I.N.R. 1.0 0.9 - 1.1 Ratio [facility] Comment: Moderate Intensity Coumadin INR = 2.0-3.0 Adjustments in anticoagulant therapy dose should be based upon the INR and NOT the Pro Time. Blood specimen (specimen) 06/11/2013 11:05 EDT 06/11/2013 11:19 EDT Gene Hanson MD HEMATOLOGY & PF4 ORDERABLES Performing Organization Address [facility] de Phone Number [facility] [address] [place] [address] * (ABNORMAL) HEMAGRAM (06/11/2013 11:05 EDT) WBC 13.74(H) 4.0 - 12.4 K/cmm [facility] RBC 3.40(L) 3.86 - 5.04 M/cmm [facility] Hemoglobin 9.5(L) 11.6 - 15.2 gm/dl [facility] HCT 31.2(L) 34.9 - 44.4 % [facility] MCV 92 81 - 98 fl [facility] MCH 28.0 26.7 - 33.3 pg [facility] MCHC 30.6(L) 32.1 - 35.9 gm/dl [facility] PLT 323(H) 141 - 320 K/cmm [facility] RDW-CV 12.2 11.7 - 14.6 % [facility] Blood specimen (specimen) 06/11/2013 11:05 EDT 06/11/2013 11:19 EDT Gene Hanson MD HEMATOLOGY & PF4 ORDERABLES Performing Organization Address [facility] Co de Phone Number [facility] [address] [place] [address] * PREPARE RED BLOOD CELLS (06/11/2013 10:55 EDT) Product Code E0382 -3 RED BLOOD CELLS, Leukocytes Reduced [facility] Donor Number [id number] [facility] Unit ABO AB [facility] Unit Rh POS [facility] Unit Status Released From [facility] 06/11/2013 10:5 5 EDT Provider Darryl JARVIS BLOOD BANK ORDERABLE S Performing Organization Address [facility] Co de Phone Number [facility] [address] [place] [address] * PREPARE RED BLOOD CELLS (06/11/2013 10:55 EDT) Product Code E0382 -3 RED BLOOD CELLS, Leukocytes Reduced [facility] Donor Number [id number] [facility] Unit ABO AB [facility] Unit Rh POS [facility] Unit Status Released From [facility] Blood specimen (specimen) 06/11/2013 10:55 EDT Gifty Sanchez MD BLOOD BANK ORDERABLE S [facility] [address] [place] [address] * (ABNORMAL) GLUCOSE, GLUCOMETER (06/11/2013 8:17 EDT) Glucose, Fingerstick 136(H) 70 - 100 mg/dl [facility] Talent Acquisition Administrator ID [id number] [facility] Comment:Test Performed by [facility] 06/11/2013 8:17 EDT 06/11/2013 8:19 EDT Antoinette Ambrose MD CHEMISTRY & BLOOD GA S ORDERABLES Performing Organization Address City/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, SCAN 2 - 06/10/2013 13:14 EDT Scan 2 Work Order Clerk ADMISSION ORDERABLE S documented in this encounter Visit Diagnoses Diagnosis Malignant neoplasm of corpus uteri, except isthmus (HCC-CMS)- Primary Malignant neoplasm of corpus uteri, 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, 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, except isthmus Asthma Unspecified asthma Hyperlipidemia Other and unspecified hyperlipidemia Need for Tdap vaccination Need for prophylactic vaccination with combined [id number] (DTP) vaccine Abdominal discomfort Abdominal pain, unspecified site IBS (irritable bowel syndrome) Irritable bowel syndrome GERD (gastroesophageal reflux disease) Esophageal reflux Myalgia and myositis Mylagia and myositis, unspecified Hypertension Unspecified essential hypertension Cough Chronic low back pain Lumbago documented in this encounter Administered Medications Inactive Administered Medications - up to 3 most recent administrations Medication Order MAR Action Action Date Dose Rate Site acetaminophen (TYLENOL) tablet 1,000 mg 1,000 mg, oral, Once (Without Time Specified), 1 dose, Starting on Mon06/11/13 at 0000, Until Mon06/11/13 at 0830, STAT Given 06/11/2013 8:30 EDT 1,000 mg acetaminophen (TYLENOL) tablet 325-650 mg 325-650 mg, oral, EVERY 4 HOURS, First dose on Mon06/11/13 at 1945, Until Discontinued, Routine, On Unit Given 06/14/2013 12:16 EDT 650 mg Given 06/14/2013 7:58 EDT 650 mg Given 06/14/2013 4:01 EDT 650 mg albuterol (VENTOLIN HFA) inhaler 2 Puff 2 Puff, inhalation, EVERY 4 HOURS, First dose on Mon06/11/13 at 1945, Until Discontinued, Routine Given 06/12/2013 0:30 EDT 2 Puffs Given 06/11/2013 21:14 EDT 2 Puffs albuterol (VENTOLIN HFA) inhaler 2 Puff 2 Puff, inhalation, EVERY 4 HOURS PRN, Starting on Mon06/12/13 at 0115, Until Mon06/14/13 at 1548, Wheezing, Routine Given 06/13/2013 7:12 EDT 2 Puffs Given 06/12/2013 23:30 EDT 2 Puffs Given 06/12/2013 10:26 EDT 2 Puffs budesonide-formoterol HFA (SYMBICORT) 80-4.5 mcg/actuation inhaler 2 Puff 2 Puff, inhalation, 2 TIMES DAILY, First dose on Mon06/11/13 at 2100, Until Discontinued, Routine Given 06/12/2013 0:30 EDT 2 Puffs budesonide-formoterol HFA (SYMBICORT) 80-4.5 mcg/actuation inhaler 2 Puff 2 Puff, inhalation, 2 TIMES DAILY, First dose (after last modification) on Mon06/12/13 at 0900, Until Discontinued, Routine Given 06/14/2013 8:54 EDT 2 Puffs Given 06/13/2013 21:18 EDT 2 Puffs Given 06/13/2013 8:00 EDT 2 Puffs clindamycin (CLEOCIN) IVPB 900 mg 900 mg, intravenous, Administer over 30 Minutes, PRE-OP ONCE, 1 dose, On Mon06/11/13 at 0845, Routine, Pre Op Day of Surgery Given 06/11/2013 8:45 EDT 900 mg clindamycin (CLEOCIN) IVPB 900 mg 900 mg, intravenous, Administer over 30 Minutes, NOW X1, 1 dose, On Mon06/11/13 at 1715, Routine Given 06/11/2013 18:38 EDT 900 mg diphenhydrAMINE (BENADRYL) capsule 25-50 mg 25-50 mg, oral, EVERY 6 HOURS PRN, Starting on Mon06/11/13 at 1929, Until Mon06/14/13 at 1548, Itching, Routine Given 06/12/2013 18:19 EDT 50 mg Given 06/12/2013 10:53 EDT 25 mg docusate sodium (COLACE) capsule 100 mg 100 mg, oral, 2 TIMES DAILY, First dose on Mon06/11/13 at 2100, Until Discontinued, Routine, On Unit Given 06/14/2013 8:55 EDT 100 mg Given 06/13/2013 21:16 EDT 100 mg Given 06/13/2013 9:21 EDT 100 mg DULoxetine (CYMBALTA) capsule 60 mg 60 mg, oral, DAILY, First dose on Mon06/11/13 at 1945, Until Discontinued, Routine Given 06/14/2013 8:55 EDT 60 mg Given 06/13/2013 9:22 EDT 60 mg Given 06/12/2013 9:13 EDT 60 mg enoxaparin (LOVENOX) injection 60 mg 60 mg, subcutaneous, DAILY, First dose on Mon06/12/13 at 0900, Until Discontinued, Routine Given 06/14/2013 8:54 EDT 60 mg Given 06/13/2013 9:22 EDT 60 mg Given 06/12/2013 9:24 EDT 60 mg fluticasone (FLONASE) nasal spray 1 [place] 1 [place], nasal - both, DAILY, First dose on Mon06/11/13 at 1945, Until Discontinued, Routine Given 06/14/2013 8:54 EDT 1 [place] Given 06/13/2013 9:22 EDT 1 [place] Given 06/12/2013 9:19 EDT 1 [place] gabapentin (NEURONTIN) capsule 600 mg 600 mg, oral, Once (Without Time Specified), 1 dose, Starting on Mon06/11/13 at 0000, Until Mon06/11/13 at 0830, STAT Given 06/11/2013 8:30 EDT 600 mg gentamicin (GARAMYCIN) 340 mg in sodium chloride (NS) 0.9 % 50 mL IVPB 340 mg (5 mg/kg ? 67.6 kg Adjusted weight), intravenous, Administer over 30 Minutes, NOW X1, 1 dose, On Mon06/11/13 at 1715, Routine Given 06/11/2013 17:42 EDT 340 mg gentamicin (GARAMYCIN) IVPB 100 mg 100 mg, intravenous, Administer over 30 Minutes, PRE-OP ONCE, 1 dose, On Mon06/11/13 at 0900, Routine Given by Other 06/11/2013 9:17 EDT 100 mg HYDROmorphone (PF) (DILAUDID) 1 mg/mL injection 0.2-1 mg 0.2-1 mg, intravenous, EVERY 10 MINUTES PRN, Starting on Mon06/11/13 at 1249, Until Mon06/11/13 at 1919, Pain, Routine, Recovery (only) Given 06/11/2013 15:00 EDT 0.3 mg Given 06/11/2013 14:45 EDT 0.3 mg Given 06/11/2013 14:34 EDT 0.4 mg insulin aspart (NOVOLOG FLEXPEN) injection 2 Units 2 Units, subcutaneous, NOW X1, 1 dose, On Mon06/11/13 at 1715, Routine Given 06/11/2013 17:42 EDT 2 Units insulin aspart (NOVOLOG FLEXPEN) injection subcutaneous, 3 TIMES DAILY WITH MEALS, First dose on Mon06/12/13 at 0800, Until Discontinued, Routine Given 06/12/2013 17:30 EDT 3 Units Given 06/12/2013 12:47 EDT 3 Units Given 06/12/2013 8:20 EDT 3 Units lactated ringers (LR) 500 mL BOLUS 500 mL, intravenous, NOW X1, 1 dose, On Mon06/11/13 at 2345, Routine Given 06/11/2013 23:48 EDT 500 mL lactated ringers (LR) infusion at 25 mL/hr, intravenous, CONTINUOUS, Starting on Mon06/11/13 at 0845, Until Mon06/11/13 at 1000, Routine, Pre Op Day of Surgery New Bag 06/11/2013 8:26 EDT 25 mL/hr lactated ringers (LR) infusion at 75 mL/hr, intravenous, CONTINUOUS, Starting on Mon06/11/13 at 1315, Until Mon06/11/13 at 1919, Routine, Recovery (only) Rate Documented 06/11/2013 13:05 EDT 75 mL/hr lactated ringers (LR) infusion at 150 mL/hr, intravenous, CONTINUOUS, Starting on Mon06/11/13 at 1445, Until Mon06/12/13 at 0901, Routine, On Unit New Bag 06/12/2013 5:04 EDT 150 mL/hr Rate Documented 06/12/2013 4:15 EDT 150 mL/hr Rate Documented 06/12/2013 2:26 EDT 500 mL/hr lovastatin (MEVACOR) tablet 10 mg 10 mg, oral, DAILY, First dose on Mon06/11/13 at 1945, Until Discontinued, Routine Given 06/14/2013 8:55 EDT 10 mg Given 06/13/2013 9:25 EDT 10 mg Given 06/12/2013 9:15 EDT 10 mg magnesium sulfate 2,000 mg in dextrose 5% (D5W) 50 mL IVPB (Latex Free) 2,000 mg, intravenous, Administer over 30 Minutes, NOW X1, 1 dose, On Mon06/11/13 at 1500, Routine Given 06/11/2013 14:55 EDT 2,000 mg metoprolol (LOPRESSOR) tablet 25 mg 25 mg, oral, 2 TIMES DAILY, First dose on Mon06/11/13 at 2100, Until Discontinued, Routine Given 06/14/2013 8:54 EDT 25 mg Given 06/13/2013 21:16 EDT 25 mg Given 06/13/2013 9:27 EDT 25 mg montelukast (SINGULAIR) tablet 10 mg 10 mg, oral, AT BEDTIME, First dose on Mon06/12/13 at 2100, Until Discontinued, Routine Given 06/13/2013 21:16 EDT 1 0 mg Given 06/12/2013 21:04 EDT 10 mg morphine 2 mg/ml (DURAMORPH) INFRASTRUCTURE SOLUTIONS ARCHITECT, 30 ml syringe - LATEX SAFE intravenous, INFRASTRUCTURE SOLUTIONS ARCHITECT, Starting on Mon06/11/13 at 1415, Until Mon06/12/13 at 0900, Intravenous, INFRASTRUCTURE SOLUTIONS ARCHITECT, INFRASTRUCTURE SOLUTIONS ARCHITECT Dose: 1 mg LOCKOUT Interval: 6 minutes ONE HOUR Dose Limit: 10 mg See PRN bolus orders for breakthrough pain., Routine Rate Documented 06/12/2013 0:00 EDT Rate Documented 06/11/2013 19:40 EDT New Bag 06/11/2013 15:20 EDT morphine injection 2-4 mg 2-4 mg, intravenous, EVERY 3 HOURS PRN, Starting on Mon06/12/13 at 0900, Until Mon06/14/13 at 1548, Pain, Routine Given 06/13/2013 7:26 EDT 4 mg Given 06/13/2013 1:13 EDT 4 mg ondansetron (PF) (ZOFRAN) injection 4 mg 4 mg, intravenous, EVERY 6 HOURS PRN, Starting on Mon06/11/13 at 1929, Until Mon06/14/13 at 1548, Nausea, Routine Given 06/11/2013 19:59 EDT 4 mg oxyCODONE (ROXICODONE) immediate release tablet 5-10 mg 5-10 mg, oral, EVERY 3 HOURS PRN, Starting on Mon06/12/13 at 0900, Until Mon06/14/13 at 1548, Pain, Routine Given 06/14/2013 13:19 EDT 10 mg Given 06/14/2013 10:07 EDT 10 mg Given 06/14/2013 6:59 EDT 10 mg pantoprazole (PROTONIX) injection 40 mg 40 mg, intravenous, NOW X1, 1 dose, On Mon06/12/13 at 0200, Routine Given 06/12/2013 2:15 EDT 40 mg pantoprazole (PROTONIX) tablet 20 mg 20 mg, oral, 2 TIMES DAILY, First dose on Mon06/11/13 at 2100, Until Discontinued Given 06/14/2013 8:55 EDT 20 mg Given 06/13/2013 21:16 EDT 20 mg Given 06/13/2013 8:12 EDT 20 mg sodium chloride 0.9 % (NS) infusion at 150 mL/hr, intravenous, CONTINUOUS, Starting on Mon06/12/13 at 0930, Until Mon06/12/13 at 2317, Routine New Bag 06/12/2013 10:53 EDT 150 mL/hr sodium chloride 0.9 % flush 3 mL 3 mL, intravenous, EVERY 8 HOURS, First dose on [place] 06/13/13 at 0000, Until Discontinued, Routine Given 06/14/2013 8:00 EDT 3 mL Given 06/13/2013 23:00 EDT 3 mL Given 06/13/2013 16:00 EDT 3 mL triamcinolone (ARISTOCORT) 0.5 % cream topical (top), 2 TIMES DAILY, First dose on Mon06/12/13 at 0900, Until Discontinued Given 06/14/2013 10:07 EDT Given 06/13/2013 9:27 EDT Abdom inal Tissue Given 06/12/2013 21:07 EDT documented in this encounter Discontinued Medications Medication Sig Discontinue Reason Start Date End Da te HYDROcodone-acetaminophen (NORCO) 10-325 mg per tabletIndications:Acute upper back pain,Lower back pain,DJD (degenerative joint disease), cervical Take 1 Tab by mouth every 6 hours as needed for Pain for 28 days. DO NOT FILL PRIOR TO START DATE 05/06/2013 06/14/2013 acetaminophen (TYLENOL) 650 mg tablet Take 1 Tab by mouth every 4 hours as needed for Pain. 04/20/2010 06/14/2013 HYDROcodone-acetaminophen (LORTAB) 10-500 mg per tablet Take 1 Tab by mouth every 4 hours as needed for Pain for 28 days. 06/05/2013 06/14/2013 oxyCODONE (ROXICODONE) 5 mg immediate release tablet Take 1-2 Tabs by mouth every 3 hours as needed for Pain. 06/14/2013 06/14/2013 ferrous gluconate (FERGON) 324 mg (38 mg iron) tablet Take 1 Tab by mouth 2 times daily with breakfast and dinner. 06/14/2013 06/14/2013 ondansetron (ZOFRAN-ODT) 4 mg disintegrating tablet Take 1 Tab by mouth every 6 hours as needed for Nausea. 06/14/2013 06/14/2013 documented as of this encounter Historical Medications * This list may reflect changes made after this encounter. Medication Sig Dispensed Refills Start Date End Date HYDROcodone-acetaminophen (LORTAB) 10-500 mg per tablet Take 1 Tab by mouth every 4 hours as needed. 06/05/2013 added in this encounter Active and Recently Administered Medications Times are shown in EDT. Scheduled Medication Order 06/12/2013 06/13/2013 06/14/2013 acetaminophen (TYLENOL) tablet 325-650 mg (CANCELED) 325-650 mg, oral, EVERY 4 HOURS, First dose on Mon06/11/13 at 1945, Until Discontinued, Routine, On Unit 0215 (Given - Provider: Delia Maynard RN)0504 (Not Given - Provider: Delia Maynard RN - Reason: Other - Comment: times changed)0911 (Given - Provider: Lesli V Evergreen)1227 (Given - Provider: Lesli V Evergreen)1630 (Given - Provider: Lesli V Evergreen)2039 (Given - Provider: Nuha Delacruz RN) 0100 (Given - Provider: Cathryn Zamarripa RN)0658 (Given - Provider: Cathryn Zamarripa RN)0700 (Hold - Provider: Lesli V Evergreen - Reason: Order parameters not met - Comment: given 45 minutes earlier)1102 (Given - Provider: Lesli V Evergreen)1511 (Given - Provider: Lesli V Radha)1929 (Given - Provider: Kirsten Giles RN)2351 (Given - Provider: Kirsten Giles RN) 0401 (Given - Provider: Ijeoma Ken, RON)0758 (Given - Provider: Ijeoma Ken RN)1216 (Given - Provider: Lesli Iyerelow) albuterol (VENTOLIN HFA) inhaler 2 Puff (CANCELED) 2 Puff, inhalation, EVERY 4 HOURS, First dose on Mon06/11/13 at 1945, Until Discontinued, Routine 003 (Given - Provider: RT Stacy) budesonide-formoterol HFA (SYMBICORT) 80-4.5 mcg/actuation inhaler 2 Puff (CANCELED) 2 Puff, inhalation, 2 TIMES DAILY, First dose on Mon06/11/13 at 2100, Until Discontinued, Routine 003 (Given - Provider: RT Stacy) budesonide-formoterol HFA (SYMBICORT) 80-4.5 mcg/actuation inhaler 2 Puff (CANCELED) 2 Puff, inhalation, 2 TIMES DAILY, First dose (after last modification) on Mon06/12/13 at 0900, Until Discontinued, Routine 21 (Given - Provider: Lesli Garcia)2104 (Given - Provider: Nuha Delacruz RN) 799 (Given - Provider: Lesli Garcia)2117 (Given - Provider: Kirsten Giles RN) 0854 (Given - Provider: Ijeoma Ken RN) docusate sodium (COLACE) capsule 100 mg 100 mg, oral, 2 TIMES DAILY, First dose on Mon06/11/13 at 2100, Until Discontinued, Routine, On Unit 937 (Given - Provider: Lesli Garcia)2110 (Given - Provider: Nuha Delacruz RN) 920 (Given - Provider: Lesli Garcia)2115 (Given - Provider: Kirsten Giles RN) 0855 (Given - Provider: Ijeoma Ken RN) DULoxetine (CYMBALTA) capsule 60 mg (CANCELED) 60 mg, oral, DAILY, First dose on Mon06/11/13 at 1945, Until Discontinued, Routine 912 (Given - Provider: Lesli Garcia) 09 (Given - Provider: Lesli Garcia) 0855 (Given - Provider: Ijeoma Ken RN) enoxaparin (LOVENOX) injection 60 mg (CANCELED) 60 mg, subcutaneous, DAILY, First dose on Mon06/12/13 at 0900, Until Discontinued, Routine 923 (Given - Provider: Lesli Garcia) 09 (Given - Provider: Lesli Garcia) 0854 (Given - Provider: Ijeoma Ken RN) fluticasone (FLONASE) nasal spray 1 [place] (CANCELED) 1 [place], nasal - both, DAILY, First dose on Mon06/11/13 at 1945, Until Discontinued, Routine 0919 (Given - Provider: Lesli Garcia) 0922 (Given - Provider: Lesli Garcia) 0854 (Given - Provider: Ijeoma Ken RN) insulin aspart (NOVOLOG FLEXPEN) injection (CANCELED) subcutaneous, 3 TIMES DAILY WITH MEALS, First dose on Mon06/12/13 at 0800, Until Discontinued, Routine 0820 (Given - Provider: Lesli Garcia)1247 (Given - Provider: Lesli Iyerelow)1730 (Given - Provider: Lesli Garcia) 0000 (Not Given - Provider: Lesli V Radha - Reason: Order parameters not met - Comment: bloodsugar = 124)1329 (Not Given - Provider: Lesli Iyerelow - Reason: Order parameters not met - Comment: blood glucose =125)1832 (Not Given - Provider: Lesli Garcia - Reason: Order parameters not met) 0701 (Not Given - Provider: Ijeoma Ken RN - Reason: Order parameters not met)1200 (Due) lovastatin (MEVACOR) tablet 10 mg (CANCELED) 10 mg, oral, DAILY, First dose on Mon06/11/13 at 1945, Until Discontinued, Routine 0915 (Given - Provider: Lesli Garcia) 0925 (Given - Provider: Lesli Garcia) 0855 (Given - Provider: Ijeoma Ken RN) metoprolol (LOPRESSOR) tablet 25 mg (CANCELED) 25 mg, oral, 2 TIMES DAILY, First dose on Mon06/11/13 at 2100, Until Discontinued, Routine 09 (Given - Provider: Lesli Garcia)2109 (Given - Provider: Nuha Delacruz RN) 09 (Given - Provider: Lesli Garcia)2115 (Given - Provider: Kirsten Giles RN) 0854 (Given - Provider: Ijeoma Ken RN) montelukast (SINGULAIR) tablet 10 mg (CANCELED) 10 mg, oral, AT BEDTIME, First dose on Mon06/12/13 at 2100, Until Discontinued, Routine 2103 (Given - Provider: Nuha Delacruz RN) 2115 (Given - Provider: Kirsten Giles RN) pantoprazole (PROTONIX) injection 40 mg (COMPLETED) 40 mg, intravenous, NOW X1, 1 dose, On Mon06/12/13 at 0200, Routine 0215 (Given - Provider: Delia Maynard RN) pantoprazole (PROTONIX) tablet 20 mg (CANCELED) 20 mg, oral, 2 TIMES DAILY, First dose on Mon06/11/13 at 2100, Until Discontinued 0833 (Given - Provider: Lesli Garcia)2106 (Given - Provider: Nuha Delacruz RN) 811 (Given - Provider: Lesli Garcia)2115 (Given - Provider: Kirsten Giles, RON) 0855 (Given - Provider: Ijeoma Ken, RN) sodium chloride 0.9 % flush 3 mL (CANCELED) 3 mL, intravenous, EVERY 8 HOURS, First dose on Mon06/13/13 at 0000, Until Discontinued, Routine 0015 (Given - Provider: Cathryn Zamarripa RN)0800 (Given - Provider: Lesli Garcia)1600 (Given - Provider: Lesli Garcia)2300 (Given - Provider: Kirsten Giles, RON) 0800 (Given - Provider: Ijeoma Ken, RON) triamcinolone (ARISTOCORT) 0.5 % cream (CANCELED) topical (top), 2 TIMES DAILY, First dose on Mon06/12/13 at 0900, Until Discontinued 112 (Given - Provider: Lesli Garcia - Comment: /p bath)2106 (Given - Provider: Nuha Delacruz RN) 926 (Given - Provider: Lesli Garcia)2121 (Not Given - Provider: Kirsten Giles RN - Reason: Patient/family refused - Comment: states not interested tonight.) 1007 (Given - Provider: Ijeoma Ken, RON) Continuous Medication Order 06/12/2013 06/13/2013 06/14/2013 lactated ringers (LR) infusion (CANCELED) at 150 mL/hr, intravenous, CONTINUOUS, Starting on Mon06/11/13 at 1445, Until Mon06/12/13 at 0901, Routine, On Unit 0022 (Rate Documented - Provider: Delia Maynard RN)0155 (New Bag - Provider: Delia Maynard RN)0226 (Rate Documented - Provider: Delia Maynard, RN)0415 (Rate Documented - Provider: Delia Maynard, RN)0504 (New Bag - Provider: Delia Maynard, RN) morphine 2 mg/ml (DURAMORPH) INFRASTRUCTURE SOLUTIONS ARCHITECT, 30 ml syringe - LATEX SAFE (CANCELED) intravenous, INFRASTRU[employer]URE SOLUTIONS ARCHITECT, Starting on Mon06/11/13 at 1415, Until Mon06/12/13 at 0900, Intravenous, INFRASTRU[employer]URE SOLUTIONS ARCHITECT, INFRA[employer] SOL[employer]IONS ARCHITECT Dose: 1 mg LOCKOUT Interval: 6 minutes ONE HOUR Dose Limit: 10 mg See PRN bolus orders for breakthrough pain., Routine 0000 (Rate Documented - Provider: Delia Maynrad RN) sodium chloride 0.9 % (NS) infusion (CANCELED) at 150 mL/hr, intravenous, CONTINUOUS, Starting on Mon06/12/13 at 0930, Until Mon06/12/13 at 2317, Routine 1053 (New Bag - Provider: Lesli Garcia) PRN Medication Order 06/12/2013 06/13/2013 06/14/2013 albuterol (VENTOLIN HFA) inhaler 2 Puff (CANCELED) 2 Puff, inhalation, EVERY 4 HOURS PRN, Starting on Mon06/12/13 at 0115, Until Mon06/14/13 at 1548, Wheezing, Routine 0635 (Given - Provider: Delia Maynard RN)1026 (Given - Provider: Lesli Garcia)2330 (Given - Provider: Nuha Delacruz RN) 0712 (Given - Provider: Cathryn Zamarripa, RON) diphenhydrAMINE (BENADRYL) capsule 25-50 mg (CANCELED)(Linked Group 1) 25-50 mg, oral, EVERY 6 HOURS PRN, Starting on Mon06/11/13 at 1929, Until Mon06/14/13 at 1548, Itching, Routine 1053 (Given - Provider: Lesli Garcia)1819 (Given - Provider: Lesli Garcia) morphine injection 2-4 mg (CANCELED) 2-4 mg, intravenous, EVERY 3 HOURS PRN, Starting on Mon06/12/13 at 0900, Until Mon06/14/13 at 1548, Pain, Routine 0113 (Given - Provider: Cathryn Zamarripa, RON)0726 (Given - Provider: Cathryn Zamarripa, RON) ondansetron (ZOFRAN-ODT) disintegrating tablet 4 mg(Linked Group 2) 4 mg, oral, EVERY 6 HOURS PRN, Starting on Mon06/11/13 at 1929, Until Mon06/14/13 at 1548, Nausea, Routine oxyCODONE (ROXICODONE) immediate release tablet 5-10 mg 5-10 mg, oral, EVERY 3 HOURS PRN, Starting on Mon06/12/13 at 0900, Until Mon06/14/13 at 1548, Pain, Routine 0938 (Given - Provider: Lesli V Radha)1227 (Given - Provider: Lesli V Radha)1630 (Given - Provider: Lesli V Evergreen)1857 (Given - Provider: Lesli V Evergreen)2225 (Given - Provider: Nuha Delacruz RN) 0100 (Given - Provider: Cathryn Zamarripa RN)0345 (Given - Provider: Cathryn Zamarripa RN)0658 (Given - Provider: Cathryn Zamarripa RN)1010 (Given - Provider: Lesli V Evergreen)1315 (Given - Provider: Lesli V Evergreen)1618 (Given - Provider: Lesli V Evergreen)1930 (Given - Provider: Kirsten Giles, RON)2228 (Given - Provider: Kirsten Giles RN) 0126 (Given - Provider: Kirsten Giles RN)0401 (Given - Provider: Ijeoma Ken, RON)0659 (Given - Provider: Ijeoma Ken, RON)1007 (Given - Provider: Ijeoma Ken RN)1319 (Given - Provider: Lesli V Radha) Linked Groups Order Group 1: diphenhydrAMINE (BENADRYL) capsule 25-50 mg (CANCELED)Jump to med 25-50 mg, oral, EVERY 6 HOURS PRN, Starting on Mon06/11/13 at 1929, Until Mon06/14/13 at 1548, Itching, Routine Or diphenhydrAMINE (BENADRYL) injection 25-50 mg (CANCELED) 25-50 mg, intravenous, EVERY 6 HOURS PRN, Starting on Mon06/11/13 at 1929, Until Mon06/14/13 at 1548, Itching, Routine Group 2: ondansetron (PF) (ZOFRAN) injection 4 mg (CANCELED) 4 mg, intravenous, EVERY 6 HOURS PRN, Starting on Mon06/11/13 at 1929, Until Mon06/14/13 at 1548, Nausea, Routine Or ondansetron (ZOFRAN-ODT) disintegrating tablet 4 mgJump to med 4 mg, oral, EVERY 6 HOURS PRN, Starting on Mon06/11/13 at 1929, Until Mon06/14/13 at 1548, Nausea, Routine documented in this encounter Orders Medications Ordered That Max ht Not Have Been Administered Count Last Ordered Date First Ordered Date albuterol (PROVENTIL) nebuli zer solution 2.5 mg 1 06/12/2013 betamethasone (CELESTONE PATI USPAN) 6 mg/mL injection 12 mg 1 06/12/2013 diphenhydrAMINE (BENADRYL) injection 25 mg 1 06/12/2013 sodium chloride 0.9 % (NS) infusion 1 06/12 atropine 0.1 mg/mL 10 mL syringe 0.4 mg 1 0 06/11/2013 dextrose 50 % solution 12.5 g 1 06/11/2013 diphenhydrAMINE (BENADRYL) i njection 25-50 mg 1 06/11/2013 diphenhydrAMINE (BENADRYL) i njection 6.25 mg 1 06/11/2013 fentaNYL citrate (PF) 50 mcg /mL injection 25-100 mcg 1 06/11/2013 gentamicin (GARAMYCIN) 100 m g in sodium chloride (NS) 0.9 % 50 mL IVPB 1 06/11/2013 glucagon (human recombinant) injection 1 mg 1 06/11/2013 magnesium sulfate in D5W 2 g /50 mL premade bag 1 06/11/2013 metoCLOPramide (REGLAN) injection 10 mg 1 0 06/11/2013 morphine 2 mg/ml (DURAMORPH) Alaris PRN, 30 ml 1 06/11/2013 morphine 2 mg/ml (DURAMORPH) INFRASTRU[employer] SOL[employer] ARCHITECT, 30 ml syringe 1 06/11/2013 morphine 2 mg/ml (DURAMORPH) syringe, 30 ml - LATEX SAFE 1 06/11/2013 naloxone (NARCAN) injection 0.2 mg 1 2012 ondansetron (PF) (ZOFRAN) injection 2 mg 1 06/11/2013 ondansetron (ZOFRAN-ODT) dis integrating tablet 4 mg 1 06/11/2013 promethazine (PHENERGAN) tablet 12.5-25 mg 1 06/11/2013 traZODone (DESYREL) tablet 100 mg 1 013 Nursing Count Last Ordered Date First Orde red Date APPLY WARMING BLANKET 2 06/11/2013 CONTRAINDICATION TO ANTICOAG ULATION THERAPY 1 06/11/2013 MISCELLANEOUS NURSING CARE ORDER (SPECIFY) 1 06/11/[address] PL[address] SEQUENTIAL COMPRESSION DEVICE 2 06/11 VITAL SIGNS 3 06/11/2013 PT Count Last Ordered Date First Orde red Date PT EVALUATION AND TREAT 1 06/12/2013 Respiratory Care Count Last Ordered Date First Ordered Date METERED DOSE INHALER 1 06/11/2013 IV Count Last Ordered Date First Orde red Date IV REQUEST 3 06/12/2013 Admission Count Last Ordered Date First Orde red Date STATUS: INPATIENT DOSA/DOPA DAY OF SURGERY/PROCEDURE ADMISSION 3 06/11/2013 Transfer Count Last Ordered Date First Orde red Date NOTIFY PPS OF DISCHARGE COMPLETE 1 06/14/20 13 TRANSFER PATIENT 1 06/12/2013 NOTIFY PPS PATIENT ARRIVAL IN PACU 1 2012 NOTIFY PPS PATIENT TRANSFERRED OUT OF PACU 1 06/11/2013 PPS NOTIFICATION OF PATIENT ARRIVAL ON UNIT 1 06/11/2013 TEACHING SERVICE 2 06/11/2013 Discharge Count Last Ordered Date First Orde red Date DISCHARGE PATIENT 1 06/14/2013 documented in this encounter Care Teams Automatic Wheel Line Operator Relationship Specialty Start Date End Date Keshawn Mehta MD [address] [place] [phone] PCP - General 02/19/09 01/04/15 documented as of this encounter
--- OUTSIDE RECORDS SUMMARY | 2024-06-24 02:18 | XMS_ITS | Encounter Summary ---
Author Organization [facility] Address [address] [place] [address] Care Team Providers Care Critical Care Registered Nurse Name Role Phone Remedios Mehta MD Primary Care Provider [phone] Reason for Referral * Consult, Test and Treat (Routine/Next Available) - Closed Specialty Diagnoses / Procedures Referred By Joao proctor Referred To Contact Rehab Therapies Diagnoses Osteoarthritis of left knee Barney Vallecillo MD [address] [place] [address] Referral ID Status Reason Start Date Expiration Date V isits Requested Visits Authorized [id number] Closed Specialty Services Required 08/05/2013 1 1 Question Answer Reason for Request: left knee pain, OA, pez bursitis. Reason for Visit * Reason Comments Knee Pain s/p right total knee arthroplasty 08/05/10 Knee Pain Left knee Encounter Details Date Type Department Care Team (Latest Contact Info) Description 08/05/2013 11:00 EDT Office Visit [facility] Total [facility] Program - [address] [place], [place] [id number] Yonathan Moreland MD Osteoarthritis of left knee (Primary Dx); Pes anserinus bursitis of left knee Discharge Disposition: Auto Discharge Social History Tobacco [...] - - Weight 96.6 kg (213 lb) 08/05/2013 1142 EDT Height 152 cm (4' 11.84) 08/05/2013 1142 EDT Body Mass Index 41.82 08/05/2013 1142 EDT documented in this encounter Functional Status Cognitive Status Response Date of Assessm ent Because of a physical, menta l, or emotional condition, do you have serious difficulty concentrating, remembering, or making decisions? (5 years old or older) Yes 07/17/2013 documented as of this encounter Discharge Disposition Disposition Code Departure Means Destination Auto Discharge documented in this encounter Progress Notes * Barney Vallecillo MD - 08/05/2013 1229 EDT TOTAL KNEE REPLACEMENT (Surveillance follow up) Chief Complaint Patient presents with ??? Knee Pain s/p right total knee arthroplasty 08/05/10 ??? Knee Pain Left knee HPI: Cherelle Husain is a 53 y.o. female who returns here today as an established patient with no significant complaints following right knee replacement 3 years ago here at [facility]. She continues to have a small area of numbness over the proximal, lateral aspect of her right tibiathat is decreasing in size, but still causing some mild discomfort. Otherwise she has no pain with ambulation from the right knee, it is stable, and does not give her any problems, she is very satisfied after the incision healed. She recently had surgery to remove her uterus for endometrial cancer. This course has been complicated with infections, IV antibiotics, hospitalization and delayed wound closure. She still has a bit of open abdominal wound at this time. Her final pathology report came back with good results for her. Her more pressing concern is significant tenderness over the medial aspect of her left knee. This is 8/10 at rest and exacerbated with palpation, going up stairs, and knee flexion. It is a sharp painthat radiates up the medial aspect of her left thigh (last few months). She also notes that the knee locks up and will cause her pain (>1 year duration). There is a dull ache present at baseline as well (several years duration has been worsening). These problems combine to limit her mobility andshe must use a walker with limp on the left. She does not note any redness, erythema, drainage or other s/s of infection at present. She has recently completed her last oral antibiotics and has also lost 25 pounds since last year. OTC meds do not help her knee pain. She continues to get injections in her back for pain and stenosis. Past Surgical History Procedure Date ??? Appendectomy ??? Hernia repair ??? Carpal tunnel release 22 years ago right endoscopic by dr. Hamilton ??? Knee surgery right ??? Joint replacement 04/15/2010 Right TKR ([facility]) ??? Colonoscopy 2010 ??? Gregory and bso 06/11/2013 Past Medical History Diagnosis Date ??? Fibromyalgia ??? Obesity ??? Asthma ??? Depression ??? Anxiety ??? GERD (gastroesophageal reflux disease) ??? Fibromyalgia ??? confirmed 1979,1982 2 vaginal deliveries ??? Lung disease ??? Complication of anesthesia respiratory ??? IBS (irritable bowel syndrome) ??? Hypertension ??? Lung disease ??? IBS (irritable bowel syndrome) ??? Factor PI ??? Arthritis osteoarthritis, psoriatic arthritis ??? Hyperlipidemia ??? Constipation PHYSICAL EXAM: She is well appearing and in no acute distress. Vitals signs and pain report reviewed. VAS 8/10 General: Well-appearing female in no acute distress. Poor dentition Mood and affect appropriate. A and O x3. Card: no peripheral cyanosis Lungs: normal effort and rate. Arises from seated position with pain (left knee not right), normal station with level pelvis in standing position. Bilateral lower extremities show equal motion of the hips and ankles. left KNEE: ROM exam shows 0 to 90 motion. flexion Manual muscle testing: Knee extension 4/5 and knee flexion 4/5 - limited by pain at medial knee. Stability testing shows mild laxity of MCL, other ligaments not lax. Valgus mal-alignment. 1+ effusion. No patellofemoral crepitus. Significant point tenderness at pes insertion that continues proximally and medially as the tendonsare palpated. Pain with mcmurrays. Right knee: Skin: Healthy appearing mobile incision ROM exam shows 0 to 90 motion. Manual muscle testing: Knee extension 5/5 and knee flexion 5/5 Stability testing shows no instability to AP or varus-valgus stress. No mal-alignment. No effusion. No patellofemoral crepitus. Neurologic Exam: Intact light touch sensation below the knee. Vascular: 2+ PT 2+DP. IMAGING STUDY REVIEW: WB Bilat AP knees and lateral view today @ [facility]: personally reviewed these films which demonstrate aclass I cement mantel around appropriately aligned tibial, femoral and patellar components. No progressive lucent lines seen. No osteolysis seen about femoral, tibial and patellar components OA of left knee also appreciated, particularly about the medial joint space which is narrowed. ASSESSMENT: Uncomplicated course following right total knee replacement, 3 years ago. She continues to have left knee pain, the most acute is consistent with pes bursitits. The symptoms of locking are consistentwith a possible meniscus tear. The chronic aching and radiographic changes are consistent with primary OA. She was counseled on these aspects of her knee, to continue to lose weight. She was seeking information regarding surgical management of her knee, but at this time she should concentrate on healing up her abdominal incision, weight loss and PT to assist with the resolution of her pes bursitis. Patient Active Problem List Diagnoses ??? Myalgia [...] ??? Endometrial cancer ??? Post op infection PLAN: Patient Education: The patient was instructed to continue to avoid high impact activities, but willotherwise participate in activities as tolerated. They will continue to keep the musculature above the extremity strong. The patient was instructed in the use of OTC medications for mild ache and stiffness as needed and as tolerated. A home exercise program was reviewed. Joint precautions and restricted activities were also reviewed. Antibiotic prophylaxis for dental/other procedures discussed and prescription offered. Rationale for clinical and radiographic surveillance follow-up discussed. Questions answered to verbalized satisfaction. I will see the patient back in follow up for routine surveillance as arranged. 1: PT - pt was given script for PT to focus on strength and mobilization. She was encouraged to usepool therapy when her incision has healed. Ultrasound and cortizone cream would benefit pt. She does not need a brace. 2: she was encouraged to continue to lose weight 3: we will continue to manage her multidimensional knee problem non-operatively at this time. She may continue to use cane, NSAIDS, activity modification. Barney Vallecillo MD 08/05/2013 This patient was seen in conjunction with Dr. Moreland. Attestation statement: I saw and examined the patient. I agree with the findings and plan of care documented in the resident's note. Yonathan Moreland MD documented in this encounter Plan of Treatment Scheduled Referrals Name Type Priority Associated Diagnoses Orde r Schedule AMB CONSULT PHYSICAL THERAPY Outpatient Referral Routine Osteoarthritis of left knee Ordered: 08/05/2013 documented as of this encounter Visit Diagnoses Diagnosis Osteoarthritis of left knee- Primary Osteoarthrosis, unspecified whether generalized or localized, lower leg Pes anserinus bursitis of left knee Pes anserinus tendinitis or bursitis documented in this encounter Care Teams Critical Care Registered Nurse Relationship Specialty Start Date End Date Remedios Mehta MD [address] [place] [phone] PCP - General 02/19/09 01/04/15 documented as of this encounter
--- OUTSIDE RECORDS SUMMARY | 2024-06-24 02:18 | XMS_ITS | Encounter Summary ---
Author Organization [facility] Address [address] [place] [address] Care Team Providers Care Radiologic Technologist Mammogram Name Role Phone Remedios Mehta MD Primary Care Provider [phone] Reason for Visit * Reason Comments Other Encounter Details Date Type Department Care Team (Late st Contact Info) Description 09/12/[address] [address] Remedios Mehta MD [address] [place] [phone] Other Social History Tobacco Use Types [...] on filedocumented in this encounter Care Teams Radiologic Technologist Mammogram Relationship Specialty Start Date End Date Remedios Mehta MD [address] [place] [phone] PCP - General 02/19/09 01/04/15 documented as of this encounter
--- OUTSIDE RECORDS SUMMARY | 2024-06-24 02:18 | XMS_ITS | Encounter Summary ---
Author Organization Health system Address [address] [place] [address] Care Team Providers Care Banana Ripening Room Supervisor Name Role Phone Remedios Mehta MD Primary Care Provider [phone] Reason for Referral * Radiology Services (Routine/Next Available) - Closed Specialty Diagnoses / Procedures Referred By Contac t Referred To Contact Diagnoses Knee pain Procedures KNEE 1 OR 2 VIEWS Yonathan Moreland MD Referral ID Status Reason Start Date Expiration Date Visits Re quested Visits Authorized [id number] Closed 08/04/2013 1 1 * Radiology Services (Routine/Next Available) - Closed Specialty Diagnoses / Procedures Referred By Contac t Referred To Contact Diagnoses Knee pain Procedures KNEE 1 OR 2 VIEWS Yonathan Moreland MD Referral ID Status Reason Start Date Expiration Date Visits Re quested Visits Authorized [id number] Closed 08/04/2013 1 1 Encounter Details Date Type Department Care Team (Late st Contact Info) Description 07/31/2013 Orders Only [facility] Total Joint Program [place] [address] [place] [address] Yonathan Moreland MD Knee pain (Primary Dx) [...] Comments KNEE 1 OR 2 VIEWS Routine 08/05/2013 11: 34 EDT Knee pain KNEE 1 OR 2 VIEWS Routine 08/05/2013 11: 34 EDT Knee pain documented in this encounter Results * KNEE 1 OR 2 VIEWS (08/05/2013 11:34 EDT) Anatomical Region Laterality Modality Other 08/05/2013 11:3 4 EDT 08/08/2013 10:26 EDT Narrative 08/08/2013 10:26 EDT KNEE 1 OR 2 VIEWS, KNEE 1 OR 2 VIEWS ??08/05/2013 11:34 AM Signs and Symptoms/Comments: ??719.46-Pain in joint, lower jsj-[id number]-2-CM; right total knee replacement due to osteoarthritis Comparison: Radiographs dated July 09, 2012. Findings: Right knee: AP and lateral views of the right knee were obtained with a total knee arthroplasty. The femoral, tibial, and patellar components of the prosthesis appear satisfactory and stable position, without evidence of failure or loosening. No acute osseous abnormality seen, no periprosthetic fracture is identified. No sizable right knee joint effusion is present, soft tissues are grossly unremarkable. Mineralization is age-appropriate. Left knee: AP view of the left knee shows no acute osseous abnormality. The lack of a lateral view limits the assessment for joint effusion and evaluation of the patellofemoral compartment. There is moderately severe joint space narrowing on the medial femorotibial compartment. The joint space in the lateral femorotibial compartment appears preserved although there is evidence of tiny marginal osteophyte formation on the periphery of the medial and lateral tibial plateaus as well as spurring of the tibial spines. Mineralization is age-appropriate. Procedure Note 08/08/2013 KNEE 1 OR 2 VIEWS, KNEE 1 OR 2 VIEWS 08/05/2013 11:34 AM Signs and Symptoms/Comments: 719.46-Pain in joint, lower kvo-[id number]-5-CM; right total knee replacement due to osteoarthritis Comparison: Radiographs dated July 09, 2012. Findings: Right knee: AP and lateral views of the right knee were obtained with a total knee arthroplasty. The femoral, tibial, and patellar components of the prosthesis appear satisfactory and stable position, without evidence of failure or loosening. No acute osseous abnormality seen, no periprosthetic fracture is identified. No sizable right knee joint effusion is present, soft tissues are grossly unremarkable. Mineralization is age-appropriate. Left knee: AP view of the left knee shows no acute osseous abnormality. The lack of a lateral view limits the assessment for joint effusion and evaluation of the patellofemoral compartment. There is moderately severe joint space narrowing on the medial femorotibial compartment. The joint space in the lateral femorotibial compartment appears preserved although there is evidence of tiny marginal osteophyte formation on the periphery of the medial and lateral tibial plateaus as well as spurring of the tibial spines. Mineralization is age-appropriate. Yonathan Moreland MD [facility] * KNEE 1 OR 2 VIEWS (08/05/2013 11:34 EDT) Anatomical Region Laterality Modality Other 08/05/2013 11:3 4 EDT 08/08/2013 10:26 EDT Narrative 08/08/2013 10:26 EDT KNEE 1 OR 2 VIEWS, KNEE 1 OR 2 VIEWS ??08/05/2013 11:34 AM Signs and Symptoms/Comments: ??719.46-Pain in joint, lower [id number]-5-CM; right total knee replacement due to osteoarthritis Comparison: Radiographs dated July 09, 2012. Findings: Right knee: AP and lateral views of the right knee were obtained with a total knee arthroplasty. The femoral, tibial, and patellar components of the prosthesis appear satisfactory and stable position, without evidence of failure or loosening. No acute osseous abnormality seen, no periprosthetic fracture is identified. No sizable right knee joint effusion is present, soft tissues are grossly unremarkable. Mineralization is age-appropriate. Left knee: AP view of the left knee shows no acute osseous abnormality. The lack of a lateral view limits the assessment for joint effusion and evaluation of the patellofemoral compartment. There is moderately severe joint space narrowing on the medial femorotibial compartment. The joint space in the lateral femorotibial compartment appears preserved although there is evidence of tiny marginal osteophyte formation on the periphery of the medial and lateral tibial plateaus as well as spurring of the tibial spines. Mineralization is age-appropriate. Procedure Note 08/08/2013 KNEE 1 OR 2 VIEWS, KNEE 1 OR 2 VIEWS 08/05/2013 11:34 AM Signs and Symptoms/Comments: 719.46-Pain in joint, lower hwy-[id number]-7-CM; right total knee replacement due to osteoarthritis Comparison: Radiographs dated July 09, 2012. Findings: Right knee: AP and lateral views of the right knee were obtained with a total knee arthroplasty. The femoral, tibial, and patellar components of the prosthesis appear satisfactory and stable position, without evidence of failure or loosening. No acute osseous abnormality seen, no periprosthetic fracture is identified. No sizable right knee joint effusion is present, soft tissues are grossly unremarkable. Mineralization is age-appropriate. Left knee: AP view of the left knee shows no acute osseous abnormality. The lack of a lateral view limits the assessment for joint effusion and evaluation of the patellofemoral compartment. There is moderately severe joint space narrowing on the medial femorotibial compartment. The joint space in the lateral femorotibial compartment appears preserved although there is evidence of tiny marginal osteophyte formation on the periphery of the medial and lateral tibial plateaus as well as spurring of the tibial spines. Mineralization is age-appropriate. Yonathan Moreland MD [facility] DIAGNOSTIC IMAGING ORDERABLES documented in this encounter Visit Diagnoses Diagnosis Knee pain- Primary Pain in joint, lower leg documented in this encounter Care Teams Banana Ripening Room Supervisor Relationship Specialty Start Date End Date Remedios Mehta MD [address] [place] [phone] PCP - General 02/19/09 01/04/15 documented as of this encounter
--- OUTSIDE RECORDS SUMMARY | 2024-06-24 02:18 | XMS_ITS | Encounter Summary ---
Author Organization [facility] Address [address] [place] [address] Care Team Providers Care Silo Painter Name Role Phone Remedios Mehta MD Primary Care Provider [phone] Reason for Referral * Consult (Routine/Next Available) - Closed Specialty Diagnoses / Procedures Referred By Joao proctor Referred To Contact Diagnoses Post op infection Jaimee Tamayo MD [address] [place] [address] Referral ID Status Reason Start Date Expiration Date V isits Requested Visits Authorized [id number] Closed Specialty Services Required 07/20/2013 1 1 Question Answer Fdc Referral - Wound Care: (Please include care and frequency.) Post Surgical - Pack wound w/ iodoform gauze once daily. Comments Pack wound w/ iodoform gauze once daily. Encounter Details Date Type Department Care Team (Latest Contact Info) Description 07/17/2013 13:34 EDT - 07/20/2013 13:42 EDT Hospital Encounter [facility] Medicine Unit [address] [place] [address] Denisha Topete MD [address] [place] [address] [address] [place] [address] Post op infection (Primary Dx); Asthma; Hyperlipidemia; Need for Tdap vaccination; Abdominal discomfort; IBS (irritable bowel syndrome); GERD (gastroesophageal reflux disease); Myalgia and myositis; Hypertension; Cough; Constipation Discharge Disposition: Home or Self Care Social [...] Sign Reading Time Taken Comments Blood Pressure 140/71 07/20/2013 0555 EDT Pulse 62 07/19/2013 1233 EDT Temperature 35.8 ??C (96.4 ??F) 07/20/2013 0555 EDT Respiratory Rate 16 07/20/2013 0555 EDT Oxygen Saturation 94% 07/20/2013 0555 EDT Inhaled Oxygen Concentration - - Weight 97 kg (213 lb 13.5 oz) 07/17/2013 1730 ED T Height 152 cm (4' 11.84) 07/17/2013 1730 EDT Body Mass Index 41.98 07/17/2013 1730 EDT documented in this encounter Functional Status Cognitive Status Response Date of Assessm ent Because of a physical, menta l, or emotional condition, do you have serious difficulty concentrating, remembering, or making decisions? (5 years old or older) Yes 07/17/2013 documented as of this encounter Discharge Summaries * Jaimee Tamayo MD - 07/20/2013 1105 EDT Discharge Summary Chief Complaint: Wound infection Principal Procedure: Ex-lap via pfannenstiel, TAB, BSO, washings, cysto. Secondary Procedure: None. Condition at Discharge: Good Hospital Course: Cherelle Husain is a 53 y.o. Who was admitted on POD 36 s/p BRITTANY- BSO for FIGO 1 endometrial adenocarcinoma who presented w/ cellulitis of her wound and possible abscess. Patient was admitted and started on levo/flagyl. The borders of her incision was monitored for signs of worsening c ellulitis/necrotizin fasciitis. Patient remained stable and was subsequently discharged home on HD#3 on PO levo/flagyl for 14 days. Relevant Studies at Discharge: none Last Lab Results at Discharge: CBC: Lab Results Component Value Date WBC 5.49 07/19/2013 RBC 3.40* 07/19/2013 HGB 9.9* 07/19/2013 HCT 29.9* 07/19/2013 MCV 88 07/19/2013 MCH 29.2 07/19/2013 MCHC 33.2 07/19/2013 PLT 273 07/19/2013 DIFFTYPE Automated 07/17/2013 SEDRATE 12 03/05/2012 Discharge Summary Completed: 07/20/2013 Home Health [id number]-[id number] Encounter: I certify that this patient is under my care and that I, or a Medicare authorized non-physician provider (PADDER or PA) working with me, had a [id number] encounter with this patient on 07/20/2013 that was in whole or in part related to the reason the patient needs home health care. The findings of this encounter indicate that the patient requires fci or therapist services for the reasonslisted below. correction services: - are required to train the patient/caregiver to manage the treatment regimen for this illness or condition - are required to provide treatments and care safely and effectively - are required for assessment/observation due to the potential for complications or exacerbation ofthe patient's condition Skilled therapist services: N/A Additionally, the findings of this encounter support that the patient is homebound because: - post-surgical restrictions or conditions limit the patient's ability to leave home documented in this encounter Discharge Instructions * Discharge Instructions* Divina Billingsley MD - 07/20/2013 11:06 EDT Diet: Regular Activity: No restrictions Skin/Wound Care: Keep the wound area clean and dry. Bathing: Shower only Pending Results: Not applicable Symptoms to Call Your Doctor About: Fever greater than 100.4 or chills Increased or new pain Pain unrelieved by medication Worsening pain or redness at the incision site Appointments: See Dr. Antoinette Ambrose as scheduled. Your nurses will call you to confirm your appointment. documented in this encounter Medications at Time [...] bowel syndrome),GERD (gastroesophageal reflux disease) Instill 1 Bay into both nostrils daily. 1 Bottle 5 [...] (LOVENOX) 60 mg/0.6 mL injectionIndications:H ypercoagulable state (HCC-CMS) Inject 60 mg into the skin daily. START 06/12/13 30 Syringe 0 06/12/2013 09/13/2013 ferrous gluconate (FERGON) 324 mg (38 mg iron) tablet Take 1 Tab by mouth 2 times daily with breakfast and dinner. 60 Tab 4 07/12/2013 04/18/2021 HYDROcodone-acetaminop hen (NORCO) 10-325 mg per tablet Take 1 Tab by mouth every 6 hours as needed for Pain. 116 Tab 1 07/12/2013 09/13/2013 ketoconazole (NIZORAL) 2 % creamIndications:Rash Apply topically daily. Apply to affect area(s) as directed. 1 Tube 1 02/17/2010 04/18/2021 levofloxacin (LEVAQUIN) 500 mg tablet Take 1 Tab by mouth daily for 10 days. 10 Tab 0 07/20/2013 07/30/2013 lovastatin (MEVACOR) 10 mg tabletIndications:Hype rlipidemia Take 1 Tab by mouth daily. 90 Tab 4 07/12/2013 12/23/2013 meloxicam (MOBIC) 7.5 mg tablet Take 1 Tab by mouth daily. 30 Tab 2 07/04/2013 09/13/2013 metoprolol (LOPRESSOR) 25 mg tabletIndications:Hype rtension Take 1 Tab by mouth 2 times daily. 180 Tab 4 06/05/2013 09/24/2018 metroNIDAZOLE (FLAGYL) 500 mg tablet Take 1 Tab by mouth every 8 hours for 10 days. 30 Tab 0 07/20/2013 07/30/2013 omeprazole (PRILOSEC) 20 mg capsuleIndications:MONALISA D (gastroesophageal reflux disease),Cough Take 1 Cap by mouth 2 times daily. 60 Cap 5 06/05/2013 12/20/2013 ondansetron (ZOFRAN-ODT) 4 mg disintegrating tablet Take 1 Tab by mouth every 6 hours as needed for Nausea. 12 Tab 0 06/14/2013 09/24/2018 polyethylene glycol (GLYCOLAX) 17 gram/dose powderIndications:Cons tipation [...] Dispensed Refills Start Date End Da te metroNIDAZOLE (FLAGYL) 500 mg tablet Take 1 Tab by mouth every 8 hours for 10 days. 30 Tab 0 07/20/2013 07/30/2013 levofloxacin (LEVAQUIN) 500 mg tablet Take 1 Tab by mouth daily for 10 days. 10 Tab 0 07/20/2013 07/30/2013 metroNIDAZOLE (FLAGYL) 500 mg tablet Take 1 Tab by mouth every 8 hours for 10 days. 30 Tab 0 07/20/2013 07/20/2013 levofloxacin (LEVAQUIN) 500 mg tablet Take 1 Tab by mouth daily for 10 days. 10 Tab 0 07/20/2013 07/20/2013 documented in this encounter Discharge Disposition Disposition Code Departure Means Destination Home or Self Care documented in this encounter Progress Notes * Megha Simental - 07/22/2013 0824 EDT CM DC note Pt discharged home 07/20/13 with HH needs facilitated by ALENA. Nayeli Simental RN CM * Ju Floyd RN - 07/20/2013 1239 EDT Nursing Discharge Note D: Patient noted with discharge orders to: home. A: Prescriptions e-scripted. Reviewed discharge instructions and prescriptions with Patient IV d/c'd. Belongings collected and sent home with patient. Report called to [facility]. R: Patient verbalized understanding of discharge instructions and denied further questions. Ju Floyd RN 07/20/2013 12:39 * Antoinette Ambrose MD - 07/20/2013 0242 EDT Gynecology Progress Note Admit Date: 07/17/2013 Hospital Day: LOS: 3 days Date of Service: 07/20/2013 POD: 39 Subjective/Chief Complaint: Pt feeling well. Denies F/C. Tolerating a regular diet, ambulating. Pain controlled. Pt would like to go home today. Is complaining of constipation, using miralax and colace. Is still passing gas. Current Facility-Administered Medications Medication Route Frequency ??? calcium carbonate (TUMS) 200 mg calcium (500 mg) per chewable tablet tablet, chewable 2 Tab oral Q4H PRN ??? diphenhydrAMINE (BENADRYL) capsule 25 mg oral Q6H PRN ??? morphine injection 5 mg intravenous Q4H PRN ??? levofloxacin (LEVAQUIN) tablet 500 mg oral DAILY ??? metroNIDAZOLE (FLAGYL) tablet 500 mg oral Q8H ??? oxyCODONE (ROXICODONE) immediate release tablet 5-10 mg oral Q2H PRN ??? heparin injection 5,000 Units subcutaneous Q12H ??? acetaminophen (TYLENOL) tablet 1,000 mg oral Q6H ??? loratadine (CLARITIN) tablet 10 mg oral DAILY ??? docusate sodium (COLACE) capsule 100 mg oral BID PRN ??? DULoxetine (CYMBALTA) capsule 60 mg oral DAILY ??? fluticasone (FLONASE) nasal spray 1 Bay nasal - both DAILY ??? lovastatin (MEVACOR) tablet 10 mg oral DAILY ??? metoprolol (LOPRESSOR) tablet 25 mg oral BID ??? pantoprazole (PROTONIX) tablet 20 mg oral BID ??? ondansetron (ZOFRAN-ODT) disintegrating tablet 4 mg oral Q6H PRN ??? PEG 3350-Electrolytes (MIRALAX) packet 17 g oral DAILY ??? traZODone (DESYREL) tablet 100 mg oral AT BEDTIME PRN ??? meloxicam (MOBIC) tablet 7.5 mg oral DAILY ??? albuterol (VENTOLIN HFA) inhaler 2 Puff inhalation Q4H PRN ??? budesonide-formoterol HFA (SYMBICORT) 80-4.5 mcg/actuation inhaler 2 Puff inhalation BID ??? PEG 3350-Electrolytes (MIRALAX) packet 17 g oral PRN Review of Systems: Pertinent items are noted in Subjective/HPI Objective/Physical Exam: VS: Patient Vitals for the past 8 hrs: BP Resp Temp SpO2 O2 Device 07/19/135 121/61 mmHg - 35.2 ??C (95.4 ??F) 97 % Room air 07/19/13 2059 93/57 mmHg - - - - 07/19/13 1847 116/71 mmHg 16 35.1 ??C (95.2 ??F) 95 % Room air Pain: Patient Vitals for the past 8 hrs: Numeric Pain Level (Scale 1-10) Asleep 07/20/13 0040 7 - 07/19/13 2300 8 - 07/19/13 2200 - Reassessed, sleeping comfortably, RR WNL. 07/19/13 2100 9 - 07/19/13 1939 9 - Glucose Readings (last 8 hours): No results found for this basename: GLUCOSEFINGE:8 in the last 72 hours I&O: Intake/Output Summary (Last 24 hours) at 07/20/13 0243 Last data filed at 07/20/13 0040 Gross per 24 hour Intake 1470 ml Output 1975 ml Net -505 ml 350cc UOP in 1.5 hours Exam: Gen: NAD CV: RRR Resp: CTAB Abd: soft, tender to palpation around area of cellulitis, +BS Ext: NT Perineum: not inspected Incision/Wound: Erythema extending from incision but within the margins previously marked. Induration still present over left area of incision. Packing in place with serosanguinous drainage. Is PICC or Central line present? No, PICC/Central line not present. Data Review: NA Labs: I have personally reviewed CBC: Lab Results Component Value Date WBC 5.49 07/19/2013 RBC 3.40* 07/19/2013 HGB 9.9* 07/19/2013 HCT 29.9* 07/19/2013 MCV 88 07/19/2013 MCH 29.2 07/19/2013 MCHC 33.2 07/19/2013 PLT 273 07/19/2013 NEUTROABS 3.08 07/17/2013 SEDRATE 12 03/05/2012 Assessment/Problems/Plan: (Update problem list daily as appropriate) Cherelle Husain is a 53 y.o. F POD#39 s/p BIRTTANY/BSO for grade I endometrial cancer readmitted with wound cellulitis. AVSS. PAIN: Well controlled on current regimen. CV: Stable, no active issues. RESP: No active issues, encourage IS. H/o asthma, cont home meds. GI: Regular diet as tolerated. Phenergan, zofran prn for nausea. ??Colace, miralax for constipation, will add milk of magnesia. : No active issues FEN: SLIV. ENDO: No active issues. HEME: Stable anemia. ID: Wound cellulitis, currently on levo/flagyl with improvement in erythema. Cont daily packing. Will have VNA at home for wound care assistance. Antibiotics for 14 days. PPX: Ambulation, IS, SCD's, heparin BID Discharge Plan: today DVT Prophylaxis: Pharmacologic Prophylaxis: Heparin 5000 units SQ Bid, Seqential Compression Deviceand Ambulate RALEIGH SHINE MD 07/20/2013 2:43 Patient seen and agree with above. Was able to sleep last night. Feels pain is slowly improving. Clinical exam improved. D/C home today if pt can get ride. Continue levo/flagyl for total of 14 days. Pt has narcotic at home and does not need Rx. ANTOINETTE AMBROSE MD,07/20/2013,10:22 * Megha Simental - 07/19/2013 1037 EDT Brief Case Management Assessment Reason for Hospitalization: Post-operative cellulitis with small open wound Current Living Arrangements: Lives independently in [facility]; has multi level home and has been able to use stairs safely at home Current Social, Health Care and Community Supports: Friend Jeannette Snyder PCP is Remedios Strong MD [phone] Identified Case Management/Social Work Needs and Issues (housing, care, financial, transportation, cultural, spiritual, emotional, legal, etc.): Medicare and medicaid insurances with prescription benefits Pt's car is parked in [facility]. Friend Jeannette will come on day of dc and drive pt homein her own car. Case Management Actions (completed and planned): Met pt, introduced CM role, performed home risk assessment Anticipates will be discharged over weekend. IM noticed explained, signed by pt. Pt active with [facility] for wound care - will need resumption of care orders and F2F documentation for discharge. Please call CM with further concerns Nayeli simental RN CM [phone] (covering for Malou Wing RN) * Alyssa Phillips MD - 07/19/2013 0717 EDT Gynecology Progress Note Admit Date: 07/17/2013 Hospital Day: LOS: 2 days Date of Service: 07/19/2013 POD: 37 CC: Post-operative wound infection 24 Hr Events: None Subjective: Doing better this morning, pain slightly increased currently because she is due for herpain meds soon. Otherwise feels tired, but tolerating a regular diet, ambulating and voiding without difficulty. Some discomfort with movement 2/2 infection, but overall tolerable. The patient denies CP/SOB/N/V/VELEZ/Dizziness/fever/chills/LE pain. Current Facility-Administered Medications Medication Route Frequency ??? morphine injection 5 mg intravenous Q4H PRN ??? levofloxacin (LEVAQUIN) tablet 500 mg oral DAILY ??? metroNIDAZOLE (FLAGYL) tablet 500 mg oral Q8H ??? oxyCODONE (ROXICODONE) immediate release tablet 5-10 mg oral Q2H PRN ??? heparin injection 5,000 Units subcutaneous Q12H ??? acetaminophen (TYLENOL) tablet 1,000 mg oral Q6H ??? loratadine (CLARITIN) tablet 10 mg oral DAILY ??? docusate sodium (COLACE) capsule 100 mg oral BID PRN ??? DULoxetine (CYMBALTA) capsule 60 mg oral DAILY ??? fluticasone (FLONASE) nasal spray 1 Bay nasal - both DAILY ??? lovastatin (MEVACOR) tablet 10 mg oral DAILY ??? metoprolol (LOPRESSOR) tablet 25 mg oral BID ??? pantoprazole (PROTONIX) tablet 20 mg oral BID ??? ondansetron (ZOFRAN-ODT) disintegrating tablet 4 mg oral Q6H PRN ??? PEG 3350-Electrolytes (MIRALAX) packet 17 g oral DAILY ??? traZODone (DESYREL) tablet 100 mg oral AT BEDTIME PRN ??? meloxicam (MOBIC) tablet 7.5 mg oral DAILY ??? albuterol (VENTOLIN HFA) inhaler 2 Puff inhalation Q4H PRN ??? budesonide-formoterol HFA (SYMBICORT) 80-4.5 mcg/actuation inhaler 2 Puff inhalation BID ??? PEG 3350-Electrolytes (MIRALAX) packet 17 g oral PRN Objective/Physical Exam: VS: Patient Vitals for the past 12 hrs: BP Pulse Heart Rate Resp Temp SpO2 O2 Device 07/19/13 0657 137/52 mmHg - - - - - - 07/19/13 0656 100/51 mmHg - - - - - - 07/19/13 0644 84/60 mmHg - - - - - - 07/19/13 0555 - - 68 BPM 18 34.7 ??C (94.5 ??F) 98 % Room air 07/19/13 0233 98/60 mmHg - - - - - - 07/19/13 0215 88/48 mmHg - 67 BPM 18 35.1 ??C (95.2 ??F) 98 % Room air 07/18/13 2154 102/68 mmHg 65 - 18 35 ??C (95 ??F) 98 % Room air 07/18/132003 108/55 mmHg 69 - - - - - I&O: Intake/Output Summary (Last 24 hours) at 07/19/13 0717 Last data filed at 07/19/13 0555 Gross per 24 hour Intake 1200 ml Output 2575 ml Net -1375 ml Gen: NAD Resp: CTAB CV: RRR Abdomen: Tender to palpation in lower abdomen at site of infection. Skin inside marked borders is firm, erythematous and tender, peau d'orange appearance, erythema is about 1-2 cm inside superior andlateral marked edges and just inside the inferiorlu marked edge. 0.75 cm open area in incision withapproximately 5 cc of bloody purulent drainage noted on the pad. Wick removed and replaced without difficulty. Ext: WWP, no tenderness to palpation in calves bilaterally, no erythema present Lab Review: Lab Review: CBC: Recent Labs Basename 07/17/13 1758 WBC 5.24 HGB 10.3* HCT 31.1* MCV 86 PLT 319 BMP: Recent Labs Basename 07/18/13 0649 07/17/13 1758 CREATININE 0.70 0.61 BUN 10 16 NA 142 140 K 4.5 3.8 CL 103 104 CO2 29 26 CALCIUM 8.9 9.3 PHOS 5.0* 4.1 MG 2.0 2.1 Assessment/Problems/Plan: The patient is a 53 yo female POD#37 s/p BRITTANY-BSO for FIGO 1 endometrial adenocarcinoma who now presents with post-op cellulitis and draining abscess. Afebrile, VSS, non-toxic appearing and no evidence for drainable collection or necrotizing infection on CT scan. Pain: Well controlled on current regimen with tylenol, mobic and oxycodone. CV: No active issues. Hx of HTN, continue home metoprolol. Hx of HLD, will continue lovastatin. Resp: Hx of asthma, will continue home symbicort and albuterol. Continue home claritin and flonase for seasonal allergies. Encourage IS. GI: No active issues, tolerating a regular diet. : No issues F/E/N: SLIV Endo: No active issues. Neuro/Psych: Continue home cymbalta and trazodone. Heme: History of DVT prior to surgery, currently taking lovenox at home. Heparin BID while inpatient. ID: Post-operative cellulitis with small area open and packed, draining small amount of purulent fluid; improving during hospitalization. No evidence for drainable abscess or necrotizing infection onCT. Continue po Abx and daily wound changes with plan for VNA assistance upon discharge. Discharge Plan: Likely tomorrow or Monday, will need daily VNA visits for wound care DVT Prophylaxis: Pharmacologic Prophylaxis: Heparin 5000 units SQ Bid, Seqential Compression Deviceand Ambulate DIVINA BILLINGSLEY MD 07/19/2013 7:17 Pt seen and examined. I agree with above assessment and plan. * Antoinette Ambrose MD - 07/18/2013 0610 EDT Gynecology Progress Note Admit Date: 07/17/2013 Hospital Day: LOS: 1 day Date of Service: 07/18/2013 POD: 36 CC: wound infection 24 Hr Events: Required increased pain control Subjective: Doing well, pain is currently controlled. States she has some right lower leg pain thatis abnormal, but thinks it could possibly be due to walking since she walked a great deal yesterday. Tolerating clear liquid diet no nausea or vomiting. The patient denies CP/SOB/N/V/VELEZ/Dizziness/F/C/LE pain. Current Facility-Administered Medications Medication Route Frequency ??? metronidazole (FLAGYL) infusion 500 mg intravenous Q8H ??? oxyCODONE (ROXICODONE) immediate release tablet 5-15 mg oral Q4H PRN ??? morphine injection 5 mg intravenous Q4H PRN ??? heparin injection 5,000 Units subcutaneous Q12H ??? levofloxacin (LEVAQUIN) IVPB 750 mg intravenous DAILY ??? acetaminophen (TYLENOL) tablet 1,000 mg oral Q6H ??? loratadine (CLARITIN) tablet 10 mg oral DAILY ??? docusate sodium (COLACE) capsule 100 mg oral BID PRN ??? DULoxetine (CYMBALTA) capsule 60 mg oral DAILY ??? fluticasone (FLONASE) nasal spray 1 Bay nasal - both DAILY ??? lovastatin (MEVACOR) tablet 10 mg oral DAILY ??? metoprolol (LOPRESSOR) tablet 25 mg oral BID ??? pantoprazole (PROTONIX) tablet 20 mg oral BID ??? ondansetron (ZOFRAN-ODT) disintegrating tablet 4 mg oral Q6H PRN ??? PEG 3350-Electrolytes (MIRALAX) packet 17 g oral DAILY ??? traZODone (DESYREL) tablet 100 mg oral AT BEDTIME PRN ??? lactated ringers (LR) infusion intravenous CONTINUOUS ??? meloxicam (MOBIC) tablet 7.5 mg oral DAILY ??? albuterol (VENTOLIN HFA) inhaler 2 Puff inhalation Q4H PRN ??? budesonide-formoterol HFA (SYMBICORT) 80-4.5 mcg/actuation inhaler 2 Puff inhalation BID ??? PEG 3350-Electrolytes (MIRALAX) packet 17 g oral PRN Objective/Physical Exam: VS: Patient Vitals for the past 12 hrs: BP Pulse Heart Rate Resp Temp SpO2 O2 Flow Rate (L/min) O2 Device FIO2 % 07/18/13 0523 98/69 mmHg - - 18 35.7 ??C (96.3 ??F) 99 % - Room air - 07/18/13 0201 118/63 mmHg - - 18 36.3 ??C (97.3 ??F) 96 % - Room air - 07/17/13 2221 124/56 mmHg - - 18 35.6 ??C (96.1 ??F) 97 % - Room air - 07/17/132124 113/66 mmHg 63 - - - - - - - 07/17/132042 - - 63 BPM 18 - 97 % 0 l/min Room air 21 % I&O: Intake/Output Summary (Last 24 hours) at 07/18/13 0610 Last data filed at 07/18/13 0510 Gross per 24 hour Intake 900 ml Output 825 ml Net 75 ml Gen: NAD Resp: CTAB CV: RRR Abdomen: +BS; tender to palpation around the pfannenstiel incision; asymmetrical erythema greater on the left side than the right side. Difficult to tell exact borders, possibly increased in width towards umbilicus. Warm to the touch. 2.5 cm area of draining seroma. Ext: WWP, no tenderness to palpation in calves bilaterally, no erythema present Lab Review: Lab Review: CBC: Recent Labs Basename 07/17/13 1758 WBC 5.24 HGB 10.3* HCT 31.1* MCV 86 PLT 319 BMP: Recent Labs Basename 07/17/13 1758 CREATININE 0.61 BUN 16 NA 140 K 3.8 CL 104 CO2 26 CALCIUM 9.3 PHOS 4.1 MG 2.1 Assessment/Problems/Plan: The patient is a 53 yo female POD36 s/p BRITTANY-BSO for FIGO 1 endometrial adenocarcinoma who now presents with likely cellulitis and CT scan finding concerning for abscess. Also will consider possibility of necrotizing fascitis, although this is unlikely and unsupported by CT. Pain: Well controlled on current regimen (Tylenol, Meloxicam, Oxycodone, Morphine) CV: Stable. Hx of HTN, continue home metoprolol. Hx of HLD, will continue lovastatin. Resp: Hx of asthma, will continue home symbicort and albuterol. Continue home claritin and flonase for seasonal allergies. Encourage IS. GI: Clear liquid diet. Will switch to general diet once infection has been deemed stable. Pantoprazole for hx of GERD. : No issues F/E/N: LR @ 140 cc/hr, will saline lock IV once patient placed on regular diet. Endo: No active issues. Neuro/Psych: History of depression/PTSD. Will continue home cymbalta and trazodone. Heme: CBC pending. Has history of DVT prior to surgery, currently taking lovenox at home. Heparin BID while inpatient. ID: Afebrile. Likely cellulitis with CT finding suggestive of abscess. Will treat with IV Levo/Flagyl. Borders of cellulitis marked with marking pen, will continue to monitor for any changes. Discharge Plan: guarded DVT Prophylaxis: Pharmacologic Prophylaxis: Heparin 5000 units SQ Bid, Seqential Compression Deviceand Ambulate Zena Umana MD 07/18/2013 6:10 Patient seen and agree with above. S: RLE pain improved with venodynes. Stable incisional pain, worse on the left. Pain improved with increased narcotics but only lasts 1-2 hours. Packing D/C is not foul smelling today. O: Afebrile Up and walking. Abdomen: Tense erythema with pue de orange appearance (similar to cellulitis treated with oral clinda 1 week postop) receeding from superior pen betty by 1 cm. Still at lower border of pen betty. Stable tenderness. Telfa pad over packing was changed and had only serosanguinous d/c on it with no odor. RLE: No erythema or cords. No sign of DVT. CT scan reviewed with Dr. Obregon who was not aware that patient had a packing in place. The area of concern for abscess appears to be draining from the tract that is packed. There is no edema or obstruction of the bowel with concern for any bowel involvement. Impression: Improving cellulitis with draining seroma. No sign of abscess by clinical exam combined with review of CT. Plan: 1. Change to oral antibiotics. 2. Change pain management to oxycodone 5 mg Q 2 hours prn. I expect the pain to start improving later on today or this evening as the cellulitis improves. 3. Regular diet since I have no suspicion that the patient will need to go to the OR for debridement or I&D. Dispo: If she continues to improve she may be able to be d/c in 2 days. Patient does not have any support at home. Will need to continue with VNA for packing changes. ANTOINETTE AMBROSE MD,07/18/2013,10:57 * Leatha Mckenna MD - 07/18/2013 0350 EDT R2 SERVICE EMPLOYEE Note CTSP for increased incisional pain. S: Reports being very frustrated with this whole process. Just concerned about a hard ball under the left side of her incision. Repeatedly states that her pain is consistent with how she felt earlier in the day, and prior to this admission as well. O: BP 118/63 Pulse 63 Temp(Src) 36.3 ??C (97.3 ??F) (Tympanic) Resp 18 Ht 152 cm (59.84) Wt 97 kg (213 lb 13.5 oz) BMI 41.98 kg/m2 SpO2 96% LMP 03/09/2010 UOP: 400cc/2hr Gen: NAD, lying in bed, uncomfortable when incision touched but otherwise NAD Abdomen: Erythema around incision appears less than previously marked. Tender to light palpation surrounding incision, particularly on left side. No crepitus palpated under skin. Area of firmness palpated on left side of incision, consistent with previous exams. A/P: Cherelle Husain is an 53 y.o. POD#37 s/p BRITTANY, BSO for grade 1 endometrial Ca, now readmitted for wound infection and IV antibiotics. Afebrile. VSS. - Pain: Given patient's h/o back pain and baseline narcotic use, likely under treating her pain. Will increase PO oxycodone. Overall reassuring given consistent abdominal exam, stable vitals, afebrile, WNL labs. Will continue to monitor. - Continue IV Abx, BID dressing changes. Discussed with Dr. Ambrose. Leatha Mckenna MD 07/18/2013 4:14 * Aziza Nelson MD - 07/18/2013 0026 EDT R3 PN SUBJECTIVE: Pt states her incision is very sore- 6/10 pain. Feels a bit cool. No N/V/F. Ambulating to the bathroom. Tolerating clears but does not want anything else to eat. OBJECTIVE: Blood pressure 124/56, pulse 63, temperature 35.6 ??C (96.1 ??F), temperature source Tympanic, resp. rate 18, height 152 cm (59.84), weight 97 kg (213 lb 13.5 oz), last menstrual period 03/09/2010, SpO2 97.00%. GEN appears uncomfortable CV RRR RESP CTAB ABD mildly distended, obese, +BS, bandage C/D/I, tender to palpation around incision. Abdomen soft,non-tender in upper quadrants. Appears that erythema may be slightly more on superior left aspect of incision, this was demarcated. EXT SCDs in place, WWP OUT-175 out since arrival A/P Pt is a 53 yo POD 37 from [facility] BSO for FIGO grade I endometrial ca, now with wound infection. Pt continues to have pain so will write for morphine. May have slightly more erythema superiorly. Continuelevo/flagyl for antibiotics, BID dressing changes. Will advance to reg diet in the am and saline lock. Written for am labs. Aziza Nelson MD 07/18/2013, 0:34 * Denisha Topete MD - 07/17/2013 1814 EDT Attending Addendum: Pt seen and examined by me. 53 y.o. female approx 1 month s/p [facility], BSO for FIGO 1 endometrial adenoCa found in polyp, complicated by 2L hemorrhage intraop requiring pRBC, cellulitis treated in office to resolution, R seroma drainage and packing in office and VNA. Seen today by HEIDE Rider and Helen JARVIS, exam concerning forabscess. Sent to CT which showed (final read): 1. Findings compatible with soft tissue infection in the vicinity of the lower abdominal surgical incision, including a small, non-drainable air and fluid- containing collection in the deep subcutaneous tissues concerning for abscess. The collection appears to communicate with the skin surface by way of a sinus tract and correlation for any evidence of purulent drainage is recommended. 2. Status post hysterectomy with bilateral salpingo-oophorectomy. 3. Mild hepatosteatosis. 4. A loop of small bowel in the left pelvis is intimately associated with inflammatory changes in the overlying abdominal wall. However, there is no evidence of associated obstruction or significant wall thickening. Pt is medically complicated with Hx of DVT prior to surgery, for which she has been on Lovenox postop prophylaxis. S: Having pain at incision site. Has been taking Vicodin 5/500 at home for this and also for long-standing back pain. O: Blood pressure 111/64, temperature 36.2 ??C (97.2 ??F), temperature source Tympanic, resp. rate 18, height 152 cm (59.84), weight 97 kg (213 lb 13.5 oz), last menstrual period 03/09/2010, SpO2 98.00%. Gen: NAD. Appropriately teary but able to be reassured Abd: Obese, soft, markedly tender to soft palpation at area of erythema which has been marked by resident physicians on arrival and does not appear to be spreading, Left side>Right. Mild calor to this area. Pfannensteil with 2.5cm area Right side from seroma drainage, now packed. No rebound/guarding. Ext: No edema BLE, SCDs not yet on, no tenderness A/P: Medically complicated postoperative patient with CT finding concerning for abscess, too small to drain by IR per verbal report. CT does not show concern for necrotizing fascitis, but we will monitor for this. Non-surgical abdomen. Loop of bowel near abscess but no bowel wall thickening. -serial abdominal exams -start IV Levaquin -ok for clear diet as does not appear bound to OR or IR tonight -Heparin SQ prophylaxis, SCDs -po pain meds, home meds -cbc, crp now and in am -LR maintenance for now, strict I+Os, reevaluate for SLIV in am Denisha Topete MD documented in this encounter H&P Notes * Zena Umana MD - 07/17/2013 7194 EDT Gynecology Admission Note/Pre-op Note Admit Date: 07/17/2013 Hospital Day: LOS: 0 days Date of Service: 07/17/2013 POD: 36 Chief Complaint: Wound infection HPI: The patient is a 53 yo female POD36 s/p BRITTANY-BSO for FIGO 1 endometrial adenocarcinoma. Her course was most recently complicated by a cellulitis, which was treated in the office with oral clindamycin to resolution. The wound also contained a draining seroma, for which VNA has been changing her packing and dressing. She was seen by Dr. Cervantes today in the office, and there was concern that she had developed an abscess. She was sent to [facility] radiology, where she underwent a CT abdomen pelvis that showed concern for skin infection surrounding her Pfannenstiel incision, as well as a small abscess with a draining sinus tract. She was then admitted to [facility] gynecology service for treatment. The patient is complaining of lots of pain in her incision site, and states that it has become progressively more painful recently. She is frustrated and upset with the recent course and states that she has been doing everything right and doesn't understand why this is happening. She says that the wound is very painful and that it smells. She denies any fevers/N/V/VELEZ/Dizziness. PMH PSH Past Medical History Diagnosis Date ??? Fibromyalgia [...] right ??? Joint replacement 04/15/2010 Right TKR ([place]) ??? Colonoscopy 2010 ??? Brittany and bso 06/11/2013 Social History Family History History Substance Use Topics ??? Smoking status: Former Smoker -- 1.0 packs/day for 20 years Types: Cigarettes Quit date: 04/23/1996 ??? Smokeless tobacco: Never Used Comment: quit 20+ yr ago ??? Alcohol Use: Yes very occasional Family History Problem Relation Age of Onset ??? Diabetes Mother ??? High Blood Pressure Father ??? 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 HYDROcodone-acetaminophen (NORCO) 10-325 mg per tablet Take 1 Tab by mouth every 6 hours as needed for Pain. 116 Tab 1 ??? lovastatin (MEVACOR) 10 mg tablet Take 1 Tab by mouth daily. 90 Tab 4 ??? ferrous gluconate (FERGON) 324 mg (38 mg iron) tablet Take 1 Tab by mouth 2 times daily with breakfast and dinner. 60 Tab 4 ??? meloxicam (MOBIC) 7.5 mg tablet Take 1 Tab by mouth daily. 30 Tab 2 ??? docusate sodium (COLACE) 100 mg capsule Take 1 Cap by mouth 2 times daily as needed for Constipation. ??? acetaminophen (TYLENOL) 325 mg tablet Take 2 Tabs by mouth every 6 hours as needed for Pain. ??? ondansetron (ZOFRAN-ODT) 4 mg disintegrating tablet Take 1 Tab by mouth every 6 hours as neededfor Nausea. 12 Tab 0 ??? budesonide-formoterol HFA (SYMBICORT) 80-4.5 mcg/actuation HFA Aerosol Inhaler inhaler Inhale 2Puffs as directed 2 times daily. 1 Inhaler 5 ??? fluocinonide (LIDEX) 0.05 % cream Apply to affect area(s) as directed. 60 g 3 ??? fluticasone (FLONASE) 50 mcg/actuation nasal spray Instill 1 Bay into both nostrils daily. 1 Bottle 5 ??? metoprolol (LOPRESSOR) 25 mg tablet Take 1 Tab by mouth 2 times daily. 180 Tab 4 ??? zafirlukast (ACCOLATE) 20 mg tablet Take 1 Tab by mouth 2 times daily. 180 Tab 5 ??? omeprazole (PRILOSEC) 20 mg capsule Take 1 Cap by mouth 2 times daily. 60 Cap 5 ??? enoxaparin (LOVENOX) 60 mg/0.6 mL injection Inject 60 mg into the skin daily. START 06/12/13 30 Syringe 0 ??? traZODone (DESYREL) 100 mg tablet TAKE ONE TO TWO TABLETS BY MOUTH AT BEDTIME NEEDED FOR SLEEP 56 Tab 1 ??? polyethylene glycol (GLYCOLAX) 17 gram/dose powder [...] every 4 hours. 1 Inhaler 1 ??? ketoconazole (NIZORAL) 2 % cream Apply topically daily. Apply to affect area(s) as directed. 1 Tube 1 ??? lubiprostone (AMITIZA) 24 mcg capsule Take 24 mcg by mouth as needed. ??? MULTIVITAMINS (MULTIVITAMIN ORAL) Take 1 Tab by mouth daily. Allergies Allergies Allergen Reactions ??? Latex, Natural [...] Wheat Containing Prod Constipation Review of Systems: Please see HPI. Objective/Physical Exam: VS: Patient Vitals for the past 8 hrs: BP Resp Temp SpO2 O2 Device 07/17/13 1730 111/64 mmHg 18 36.2 ??C (97.2 ??F) 98 % Room air Pain: Patient Vitals for the past 8 hrs: Numeric Pain Level (Scale 1-10) 07/17/13 1832 9 Exam: General: appears in pain, overall pleasant but tearful at times when discussing recent events surrounding surgery Heart: RRR Lungs: CTAB Abdomen: +BS; tender to palpation around the pfannenstiel incision; asymmetrical erythema ~2 cm on the left side, less than 1 cm on the right side. Warm to the touch aroudn incision site. 2.5 cm areaof draining seroma. Erythema surrounding area where tape was present. Extremities: WWP Data Review: Imaging: CT abdomen/pelvis 07/17/2013: Impression: 1. Findings compatible with soft tissue infection in the vicinity of the lower abdominal surgical incision, including a small, non-drainable air and fluid-containing collection in the deep subcutaneous tissues concerning for abscess. The collection appears to communicate with the skin surface by way of a sinus tract and correlation for any evidence of purulent drainage is recommended. 2. Status post hysterectomy with bilateral salpingo-oophorectomy. 3. Mild hepatosteatosis. 4. A loop of small bowel in the left pelvis is intimately associated with inflammatory changes in the overlying abdominal wall. However, there is no evidence of associated obstruction or significant wall thickening. Labs: BMP: Recent Labs Basename 07/17/13 1758 CREATININE 0.61 BUN 16 NA 140 K 3.8 CL 104 CO2 26 CALCIUM 9.3 PHOS 4.1 MG 2.1 Assessment/Problems/Plan: The patient is a 53 yo female POD36 s/p BRITTANY-BSO for FIGO 1 endometrial adenocarcinoma who now presents with likely cellulitis and CT scan finding concerning for abscess. Also will consider possibility of necrotizing fascitis, although this is unlikely and unsupported by CT. Pain: Well controlled on current regimen (Tylenol, Meloxicam, Oxycodone, Morphine) CV: Stable. Hx of HTN, continue home metoprolol. Hx of HLD, will continue lovastatin. Resp: Hx of asthma, will continue home symbicort and albuterol. Continue home claritin and flonase for seasonal allergies. Encourage IS. GI: NPO while we observe wound for worsening. Will switch to general diet once infection has been deemed stable. Pantoprazole for hx of GERD. : No issues F/E/N: LR @ 140 cc/hr, will saline lock IV once patient placed on regular diet. Endo: No active issues. Neuro/Psych: History of depression/PTSD. Will continue home cymbalta and trazodone. Heme: CBC pending. Has history of DVT prior to surgery, currently taking lovenox at home. Heparin BID while inpatient. ID: Afebrile. Likely cellulitis with CT finding suggestive of abscess. Will treat with IV Levo/Flagyl. Borders of cellulitis marked with marking pen, will continue to monitor for any changes. Discharge Plan: guarded DVT Prophylaxis: Pharmacologic Prophylaxis: Heparin 5000 units SQ Bid, Seqential Compression Deviceand Ambulate Zena Umana MD 07/17/2013 18:37 documented in this encounter Consult Notes * Siomara Norman RN - 07/19/2013 1316 EDT 07/19: consulted to assess mid abdominal wound for suggestions for dressing. Pt currently has an area of cellulitis, with open area in incision located in crease under pannus. Currently has a wick, covered with nonadherent dressing. Per pt dressing has already been changed once since this morning due to leaking. New wick placed, wound covered with mepilex sacral heart dressing to offer more absorption of drainage and border to protect clothing. If this does not meet expectations please use mepilex white foam with cover dressing. Wound care does not need to follow this pt. Please re-consult if needed. Siomara Norman, Pressure Ulcer Prevention Nurse documented in this encounter Miscellaneous Notes * Scanned Note-Null - DESIGN SUPERVISOR, SCAN 2 - 07/25/2013 1500 EDT * Scanned Note-Null - DESIGN SUPERVISOR, SCAN 2 - 07/22/2013 0840 EDT * Plan of Care - Brook Fortune - 07/20/2013 0541 EDT Problem: PAIN Goal: Patient???s Pain And Discomfort Are Adequately Managed Outcome: Ongoing Data: pt admitted s/p day 39 of hysterectomy, and abdominal abscess drain; pt complains of abdominal pain, 9/10 on pain scale at the beginning of the shift Action: pt given prn oxycodone 10 mg q 2hrs for pain @ 1830 prior to beginning of this shift; offered pt heat for pain Response: pt states that heat helped, but is asking for additional oxycodone 10 mg at next due [id number]; administered 10 mg of oxycodone @ 2100 for pain of 9/10; upon reassessment pt observed to be sleeping; appears comfortable; will continue to monitor Brook Becker RN 07/20/2013 5:14 * Plan of Care - Ignacio Crandall RN - 07/19/2013 1236 EDT Problem: PAIN Goal: Patient???s Pain And Discomfort Are Adequately Managed Outcome: Ongoing Data: Patient with complaints of abdominal pain, rating pain 9/10 upon arrival to shift. Action: Patient medicated with scheduled tylenol every 6 hours. Patient medicated with oxycodone 10mg every 2 hours as needed. Patient given heat for pain. Response: Patient reports that pain has decreased to 7/10. Continue to monitor. Ignacio Crandall RN 07/19/2013 12:34 * Plan of Care - Brook Fortune - 07/19/2013 0615 EDT Problem: SKIN INTEGRITY Goal: Skin Integrity Is Maintained Or Improved Outcome: Ongoing Data: pt admitted with abdominal cellulitis, wound infection with abscess drained; abdomen red, swollen and warm to touch; abdominal wound packed with xeroform strips by [employer] EMPL[employer]EE services, covered with ABD; wound draining moderate amount of serosanguinous fluid Action: skin assessment; cleaned skin with soap and water around wound; dressing change as needed for saturation; pt pre medicated pt with morphine 5 mg prior to dressing change Response: pt states that abdomen is painful to touch, but tolerated dressing change well; dressing CDI; will continue to assess skin and monitor for any change in skin condition and drainage; alert team if any significant changes arise Brook Becker RN 07/19/2013 5:56 * Plan of Care - Kalpana Fuentes RN - 07/18/2013 7791 EDT Data: Patient admitted with concern for abscess after BRITTANY-BSO for endometrial cancer. Patient had draining seroma that was being packed by VNA at home prior. CT abdomen pelvis that showed concern for skin infection surrounding her Pfannenstiel incision, as well as a small abscess with a draining sinus tract. Complaining of 8/10 lower abdominal pain- cramping, shooting and stinging, aggravated with movement. Lower abdominal incision is packed with iodoform and covered with non-adherent pad. Erythema outlined with marker, tenderness with palpation on left lower quadrant, non-adherent pad changed twice overnight with moderate sanguineous drainage. Vitals signs stable, afebrile. Tolerating clear liquids. Voiding without difficulty, BM yesterday. Action: Medications given per mar including IV Levaquin and Flagyl. LR infusing @ 140 ml/hr. Bowel medications given per patient request. SCD's placed for DVT history. Oxycodone immediate release andscheduled Tylenol given for pain, see mar. Patient being followed by [employer] service. Trazodone given for sleep aide, see mar. Response: MD Nelson and MD Mckenna consulted for increased pain overnight. MD Mckenna at bedside to evaluate. Patient changed to 5 IV morphine every 4 hours and oxycodone immediate release 5-15mg every 4 hours. Patient tearful at times, frustrated with hospital stay. Packing to be changed by in am. Willcontinue to assess pt's status and intervene as necessary. Kalpana Fuentes RN 07/18/2013 4:11 * Scanned Note-Null - DESIGN SUPERVISOR, SCAN 2 - 07/17/2013 1340 EDT * Scanned Note-Null - DESIGN SUPERVISOR, SCAN 2 - 07/17/2013 1340 EDT * Scanned Note-Null - DESIGN SUPERVISOR, SCAN 2 - 07/17/2013 1340 EDT documented in this encounter Plan of Treatment Scheduled Referrals Name Type Priority Associated Diagnoses Orde r Schedule FROM IP - [facility] Outpatient Referral Routine Post op infection Ordered: 07/20/2013 documented as of this encounter Procedures Procedure Name Priority Date/Time Associated Diagnosis Comments WOUND EVALUATION AND TREAT Routine 07/19/2013 8:41 EDT COMPLETE BLOOD COUNT Routine 07/19/2013 6:39 EDT BUN Routine 07/19/2013 6:39 EDT PHOSPHORUS Routine 07/19/2013 6:39 EDT MAGNESIUM Routine 07/19/2013 6:39 EDT CREATININE Routine 07/19/2013 6:39 EDT CALCIUM Routine 07/19/2013 6:39 EDT ELECTROLYTES Routine 07/19/2013 6:39 EDT BUN Routine 07/18/2013 6:49 EDT PHOSPHORUS Routine 07/18/2013 6:49 EDT MAGNESIUM Routine 07/18/2013 6:49 EDT CREATININE Routine 07/18/2013 6:49 EDT CALCIUM Routine 07/18/2013 6:49 EDT ELECTROLYTES Routine 07/18/2013 6:49 EDT SCREENING GLUCOSE Routine 07/17/2013 17: 58 EDT DIFFERENTIAL Routine 07/17/2013 17:58 EDT COMPLETE BLOOD COUNT Routine 07/17/2013 17:58 EDT COMPLETE BLOOD COUNT AND DIFFERENTIAL Routine 07/17/2013 17:58 EDT BUN Routine 07/17/2013 17:58 EDT PHOSPHORUS Routine 07/17/2013 17:58 EDT MAGNESIUM Routine 07/17/2013 17:58 EDT CREATININE Routine 07/17/2013 17:58 EDT CALCIUM Routine 07/17/2013 17:58 EDT ELECTROLYTES Routine 07/17/2013 17:58 EDT documented in this encounter Results * CALCIUM (07/19/2013 6:39 EDT) Calcium 9.2 8.5 - 10.5 mg/dl [facility] Calculated Calcium 10.0 8.5 - 10.5 mg/dl [facility] Blood specimen (specimen) 07/19/2013 6:39 EDT 07/19/2013 7:05 EDT Zena Vee MD CHEMISTRY & BLOOD GA S ORDERABLES [facility] [address] [place] [address] * (ABNORMAL) PHOSPHORUS (07/19/2013 6:39 EDT) Phosphorus 5.1(H) 2.5 - 4.5 mg/dl [facility] Blood specimen (specimen) 07/19/2013 6:39 EDT 07/19/2013 7:05 EDT Zena Vee MD CHEMISTRY & BLOOD GA S ORDERABLES [facility] [address] [place] [address] * MAGNESIUM (07/19/2013 6:39 EDT) Magnesium 2.0 1.7 - 2.8 mg/dl [facility] Blood specimen (specimen) 07/19/2013 6:39 EDT 07/19/2013 7:05 EDT Zena Vee MD CHEMISTRY & BLOOD GA S ORDERABLES Performing Organization Address [facility] Co de Phone Number [facility] [address] [place] [address] * CREATININE (07/19/2013 6:39 EDT) Creatinine 0.76 0.52 - 1.04 mg/dl [facility] GFR, Calculated >60 >60 ml/min/1.7 3m2 [facility] Blood specimen (specimen) 07/19/2013 6:39 EDT 07/19/2013 7:05 EDT Zena Vee MD CHEMISTRY & BLOOD GA S ORDERABLES Performing Organization Address [facility] de Phone Number [facility] [address] [place] [address] * (ABNORMAL) BUN (07/19/2013 6:39 EDT) BUN 8(L) 10 - 26 mg/dl [facility] Blood specimen (specimen) 07/19/2013 6:39 EDT 07/19/2013 7:05 EDT Zena Vee MD CHEMISTRY & BLOOD GA S ORDERABLES Performing Organization Address [facility] Co de Phone Number [facility] [address] [place] [address] * ELECTROLYTES (07/19/2013 6:39 EDT) Sodium 141 136 - 145 mEq/L [facility] Potassium 4.4 3.5 - 5.0 mEq/L [facility] Chloride 102 96 - 110 mEq/L [facility] CO2 31 24 - 32 mEq/L [facility] Blood specimen (specimen) 07/19/2013 6:39 EDT 07/19/2013 7:05 EDT Zena Vee MD CHEMISTRY & BLOOD GA S ORDERABLES Performing Organization Address [facility] de Phone Number [facility] [address] [place] [address] * (ABNORMAL) HEMAGRAM (07/19/2013 6:39 EDT) WBC 5.49 4.0 - 12.4 K/cmm [facility] RBC 3.40(L) 3.86 - 5.04 M/cmm [facility] Hemoglobin 9.9(L) 11.6 - 15.2 gm/dl [facility] HCT 29.9(L) 34.9 - 44.4 % [facility] MCV 88 81 - 98 fl [facility] MCH 29.2 26.7 - 33.3 pg [facility] MCHC 33.2 32.1 - 35.9 gm/dl [facility] PLT 273 141 - 320 K/cmm [facility] RDW-CV 16.2(H) 11.7 - 14.6 % [facility] Blood specimen (specimen) 07/19/2013 6:39 EDT 07/19/2013 7:05 EDT Aziza Nelson MD HEMATOLOGY & PF4 O RDERABLES Performing Organization Address City/[facility] Co de Phone Number [facility] [address] [place] [address] * CALCIUM (07/18/2013 6:49 EDT) Calcium 8.9 8.5 - 10.5 mg/dl [facility] Calculated Calcium 9.9 8.5 - 10.5 mg/dl [facility] Blood specimen (specimen) 07/18/2013 6:49 EDT 07/18/2013 7:36 EDT Zena Vee MD CHEMISTRY & BLOOD GA S ORDERABLES Performing Organization Address [facility] Co de Phone Number [facility] [address] [place] [address] * (ABNORMAL) PHOSPHORUS (07/18/2013 6:49 EDT) Phosphorus 5.0(H) 2.5 - 4.5 mg/dl [facility] Blood specimen (specimen) 07/18/2013 6:49 EDT 07/18/2013 7:36 EDT Zena Vee MD CHEMISTRY & BLOOD GA S ORDERABLES Performing Organization Address [facility] de Phone Number [facility] [address] [place] [address] * MAGNESIUM (07/18/2013 6:49 EDT) Magnesium 2.0 1.7 - 2.8 mg/dl [facility] Blood specimen (specimen) 07/18/2013 6:49 EDT 07/18/2013 7:36 EDT Zena Vee MD CHEMISTRY & BLOOD GA S ORDERABLES Performing Organization Address [facility] de Phone Number [facility] [address] [place] [address] * CREATININE (07/18/2013 6:49 EDT) Creatinine 0.70 0.52 - 1.04 mg/dl [facility] GFR, Calculated >60 >60 ml/min/1.7 3m2 [facility] Blood specimen (specimen) 07/18/2013 6:49 EDT 07/18/2013 7:36 EDT Zena Vee MD CHEMISTRY & BLOOD GA S ORDERABLES Performing Organization Address [facility] Co de Phone Number [facility] [address] [place] [address] * BUN (07/18/2013 6:49 EDT) BUN 10 10 - 26 mg/dl [facility] Blood specimen (specimen) 07/18/2013 6:49 EDT 07/18/2013 7:36 EDT Zena Vee MD CHEMISTRY & BLOOD NE S ORDERABLES Performing Organization Address [facility] de Phone Number [facility] [address] [place] [address] * ELECTROLYTES (07/18/2013 6:49 EDT) Sodium 142 136 - 145 mEq/L [facility] Potassium 4.5 3.5 - 5.0 mEq/L [facility] Chloride 103 96 - 110 mEq/L [facility] CO2 29 24 - 32 mEq/L [facility] Blood specimen (specimen) 07/18/2013 6:49 EDT 07/18/2013 7:36 EDT Zena Vee MD CHEMISTRY & BLOOD GA S ORDERABLES Performing Organization Address [facility] de Phone Number [facility] [address] [place] [address] * DIFFERENTIAL (07/17/2013 17:58 EDT) % Neutrophils 58.8 45.5 - 79.7 % [facility] % Lymphocytes 30.1 15.0 - 46.8 % [facility] % Monocytes 7.4 1.8 - 12.0 % [facility] % Eosinophils 2.9 0.6 - 6.9 % [facility] % Basophils 0.8 0.2 - 1.4 % [facility] ABS Neutrophils 3.08 2.20 - 8.85 K/cmm [facility] Lymphs 1.57 1.09 - 3.30 K/cmm [facility] Monocytes 0.39 0.1 - 0.8 K/cmm [facility] ABS Eosinophils 0.15 0.03 - 0.61 K/cmm [facility] ABS Basophils 0.04 0.01 - 0.11 K/cmm [facility] Type of Diff: Automated [facility] 07/17/2013 17:5 8 EDT 07/17/2013 18:08 EDT Narrative Authorizing Provider Result Jaqueline Vee MD HEMATOLOGY & PF4 ORD ERABLES Performing Organization Address [facility] Co de Phone Number [facility] [address] [place] [address] * (ABNORMAL) HEMAGRAM (07/17/2013 17:58 EDT) WBC 5.24 4.0 - 12.4 K/cmm [facility] RBC 3.62(L) 3.86 - 5.04 M/cmm [facility] Hemoglobin 10.3(L) 11.6 - 15.2 gm/dl [facility] HCT 31.1(L) 34.9 - 44.4 % [facility] MCV 86 81 - 98 fl [facility] MCH 28.5 26.7 - 33.3 pg [facility] MCHC 33.1 32.1 - 35.9 gm/dl [facility] PLT 319 141 - 320 K/cmm [facility] RDW-CV 16.2(H) 11.7 - 14.6 % [facility] 07/17/2013 17:5 8 EDT 07/17/2013 18:08 EDT Narrative Authorizing Provider Result Jaqueline Vee MD HEMATOLOGY & PF4 ORD ERABLES Performing Organization Address [facility] de Phone Number [facility] [address] [place] [address] * CALCIUM (07/17/2013 17:58 EDT) Calcium 9.3 8.5 - 10.5 mg/dl [facility] Calculated Calcium 9.8 8.5 - 10.5 mg/dl [facility] Blood specimen (specimen) 07/17/2013 17:58 EDT 07/17/2013 18:08 EDT Narrative Authorizing Provider Result Jaqueline Vee MD CHEMISTRY & BLOOD GA S ORDERABLES Performing Organization Address [facility] Co de Phone Number [facility] [address] [place] [address] * PHOSPHORUS (07/17/2013 17:58 EDT) Phosphorus 4.1 2.5 - 4.5 mg/dl [facility] Blood specimen (specimen) 07/17/2013 17:58 EDT 07/17/2013 18:08 EDT Zena Vee MD CHEMISTRY & BLOOD GA S ORDERABLES Performing Organization Address [facility] Co de Phone Number [facility] [address] [place] [address] * MAGNESIUM (07/17/2013 17:58 EDT) Magnesium 2.1 1.7 - 2.8 mg/dl [facility] Blood specimen (specimen) 07/17/2013 17:58 EDT 07/17/2013 18:08 EDT Zena Vee MD CHEMISTRY & BLOOD GA S ORDERABLES Performing Organization Address [facility] de Phone Number [facility] [address] [place] [address] * CREATININE (07/17/2013 17:58 EDT) Creatinine 0.61 0.52 - 1.04 mg/dl [facility] GFR, Calculated >60 >60 ml/min/1.7 3m2 [facility] Blood specimen (specimen) 07/17/2013 17:58 EDT 07/17/2013 18:08 EDT Zena Vee MD CHEMISTRY & BLOOD GA S ORDERABLES Performing Organization Address [facility] Co de Phone Number [facility] [address] [place] [address] * BUN (07/17/2013 17:58 EDT) BUN 16 10 - 26 mg/dl [facility] Blood specimen (specimen) 07/17/2013 17:58 EDT 07/17/2013 18:08 EDT Zena Vee MD CHEMISTRY & BLOOD GA S ORDERABLES Performing Organization Address [facility] de Phone Number [facility] [address] [place] [address] * ELECTROLYTES (07/17/2013 17:58 EDT) Sodium 140 136 - 145 mEq/L [facility] Potassium 3.8 3.5 - 5.0 mEq/L [facility] Chloride 104 96 - 110 mEq/L [facility] CO2 26 24 - 32 mEq/L [facility] Blood specimen (specimen) 07/17/2013 17:58 EDT 07/17/2013 18:08 EDT Zena Vee MD CHEMISTRY & BLOOD GA S ORDERABLES Performing Organization Address [facility] Phone Number [facility] [address] [place] [address] * (ABNORMAL) SCREENING GLUCOSE (07/17/2013 17:58 EDT) Glucose, Screening 119(H) 70 - 100 mg/dl [facility] Blood specimen (specimen) 07/17/2013 17:58 EDT 07/17/2013 18:08 EDT Zena Vee MD CHEMISTRY & BLOOD GA S ORDERABLES Performing Organization Address [facility] Phone Number [facility] [address] [place] [phone] documented in this encounter Visit Diagnoses Diagnosis Post op infection- Primary Other postoperative infection Post op infection Other postoperative infection Asthma Unspecified asthma Hyperlipidemia Other and unspecified hyperlipidemia Need for Tdap vaccination Need for prophylactic vaccination with combined [id number] (DTP) vaccine Abdominal discomfort Abdominal pain, unspecified site IBS (irritable bowel syndrome) Irritable bowel syndrome GERD (gastroesophageal reflux disease) Esophageal reflux Myalgia and myositis Mylagia and myositis, unspecified Hypertension Unspecified essential hypertension Cough Constipation Unspecified constipation documented in this encounter Administered Medications Inactive Administered Medications - up to 3 most recent administrations Medication Order MAR Action Action Date Dose Rate Site acetaminophen (TYLENOL) tablet 1,000 mg 1,000 mg, oral, EVERY 6 HOURS, First dose on Mon07/17/13 at 1830, Until Discontinued, Routine Given 07/20/2013 11:55 EDT 1,000 mg Given 07/20/2013 6:05 EDT 1,000 mg Given 07/19/2013 23:04 EDT 1,000 mg albuterol (VENTOLIN HFA) inhaler 2 Puff 2 Puff, inhalation, EVERY 4 HOURS, First dose on Mon07/17/13 at 1830, Until Discontinued, Routine Given 07/17/2013 19:11 EDT 2 Puffs budesonide-formoterol HFA (SYMBICORT) 80-4.5 mcg/actuation inhaler 2 Puff 2 Puff, inhalation, 2 TIMES DAILY, First dose on Mon07/17/13 at 2100, Until Discontinued, Routine Given 07/17/2013 20:48 EDT 2 Puffs budesonide-formoterol HFA (SYMBICORT) 80-4.5 mcg/actuation inhaler 2 Puff 2 Puff, inhalation, 2 TIMES DAILY, First dose (after last modification) on Shirley 07/18/13 at 0900, Until Discontinued, Routine Given 07/20/2013 8:41 EDT 2 Puffs Given 07/19/2013 21:04 EDT 2 Puffs Given 07/19/2013 8:05 EDT 2 Puffs calcium carbonate (TUMS) 200 mg calcium (500 mg) per chewable tablet tablet, chewable 2 Tab 2 Tablet, oral, EVERY 4 HOURS PRN, Starting on 07/20/13 at 0046, Until 07/20/13 at 1545, Heartburn, Routine Given 07/20/2013 10:21 EDT 2 Tablets Given 07/20/2013 1:03 EDT 2 Tablets docusate sodium (COLACE) capsule 100 mg 100 mg, oral, 2 TIMES DAILY PRN, Starting on Mon07/17/13 at 1807, Until 07/20/13 at 1545, Constipation, Routine Given 07/19/2013 21:00 EDT 100 mg Given 07/17/2013 23:33 EDT 100 mg DULoxetine (CYMBALTA) capsule 60 mg 60 mg, oral, DAILY, First dose on Mon07/17/13 at 1830, Until Discontinued, Routine Given 07/20/2013 8:41 EDT 60 mg Given 07/19/2013 8:05 EDT 60 mg Given 07/18/2013 9:11 EDT 60 mg fluticasone (FLONASE) nasal spray 1 Bay 1 Bay, nasal - both, DAILY, First dose on Mon07/17/13 at 1830, Until Discontinued, Routine Given 07/20/2013 8:41 EDT 1 Bay Given 07/19/2013 8:05 EDT 1 Bay Given 07/18/2013 9:08 EDT 1 Bay heparin injection 5,000 Units 5,000 Units, subcutaneous, EVERY 12 HOURS, First dose on Mon07/17/13 at 2100, Until Discontinued, Routine, On Unit Given 07/20/2013 8:41 EDT 5,000 Units Given 07/19/2013 21:00 EDT 5,000 Units Given 07/19/2013 8:04 EDT 5,000 Units lactated ringers (LR) infusion at 140 mL/hr, intravenous, CONTINUOUS, Starting on Mon07/17/13 at 1845, Until Mon07/18/13 at 1215, Routine New Bag 07/18/2013 3:25 EDT 140 mL/hr New Bag 07/17/2013 20:59 EDT 140 mL/hr levofloxacin (LEVAQUIN) IVPB 750 mg 750 mg, intravenous, Administer over 90 Minutes, DAILY, 14 doses, First dose on Mon07/17/13 at 1745, Last dose on Mon07/30/13 at 0900, Routine Given 07/17/2013 21:32 EDT 750 mg levofloxacin (LEVAQUIN) tablet 500 mg 500 mg, oral, DAILY, 7 doses, First dose on Mon07/18/13 at 1130, Last dose on Mon07/24/13 at 0900, Routine Given 07/20/2013 8:42 EDT 500 mg Given 07/19/2013 8:05 EDT 500 mg Given 07/18/2013 12:12 EDT 500 mg loratadine (CLARITIN) tablet 10 mg 10 mg, oral, DAILY, First dose on Mon07/17/13 at 1830, Until Discontinued, Routine Given 07/20/2013 8:42 EDT 10 mg Given 07/19/2013 8:05 EDT 10 mg Given 07/18/2013 9:11 EDT 10 mg lovastatin (MEVACOR) tablet 10 mg 10 mg, oral, DAILY, First dose on Mon07/17/13 at 1830, Until Discontinued, Routine Given 07/20/2013 8:42 EDT 10 mg Given 07/19/2013 8:05 EDT 10 mg Given 07/18/2013 9:11 EDT 10 mg meloxicam (MOBIC) tablet 7.5 mg 7.5 mg, oral, DAILY, First dose on Mon07/17/13 at 1915, Until Discontinued, Routine Given 07/20/2013 8:41 EDT 7.5 mg Given 07/19/2013 8:04 EDT 7.5 mg Given 07/18/2013 9:09 EDT 7.5 mg metoprolol (LOPRESSOR) tablet 25 mg 25 mg, oral, 2 TIMES DAILY, First dose on Mon07/17/13 at 2100, Until Discontinued, Routine Given 07/20/2013 8:42 EDT 25 mg Given 07/19/2013 8:06 EDT 25 mg Given 07/18/2013 20:04 EDT 25 mg metronidazole (FLAGYL) infusion 500 mg 500 mg, intravenous, Administer over 30 Minutes, EVERY 8 HOURS, 42 doses, First dose on Mon07/17/13 at 1745, Last dose on Mon07/31/13 at 0800, Routine Given 07/17/2013 21:00 EDT 500 mg metronidazole (FLAGYL) infusion 500 mg 500 mg, intravenous, Administer over 30 Minutes, EVERY 8 HOURS, 40 doses, First dose (after last modification) on Mon07/18/13 at 0500, Last dose on Mon07/31/13 at 0500, Routine Given 07/18/2013 5 :07 EDT 500 mg metroNIDAZOLE (FLAGYL) tablet 500 mg 500 mg, oral, EVERY 8 HOURS, 7 doses, First dose on Shirley 07/18/13 at 1600, Last dose on Mon07/20/13 at 1600, Routine Given 07/20/2013 8:42 EDT 500 mg Given 07/19/2013 23:03 EDT 500 mg Given 07/19/2013 15:54 EDT 500 mg morphine 2 mg/mL injection 1 dose, Starting on Mon07/17/13 at 1826, Until Mon07/17/13 at 1832 morphine injection 2-5 mg 2-5 mg, intravenous, Once (Without Time Specified), 1 dose, Starting on Mon07/17/13 at 1830, Until Mon07/17/13 at 1832, Routine Given 07/17/2013 18:32 EDT 4 mg morphine injection 5 mg 5 mg, intravenous, EVERY 4 HOURS PRN, Starting on Shirley 07/18/13 at 0405, Until 07/20/13 at 1545, Pain, Routine Given 07/19/2013 19:52 EDT 5 mg Given 07/19/2013 14:15 EDT 5 mg Given 07/18/2013 20:04 EDT 5 mg morphine injection 5-10 mg 5-10 mg, intravenous, EVERY 4 HOURS PRN, Starting on Shirley 07/18/13 at 0014, Until Shirley 07/18/13 at 0406, Pain, Routine Given 07/18/2013 1:59 EDT 5 mg Given 07/18/2013 1:04 EDT 5 mg oxyCODONE (ROXICODONE) immediate release tablet 5-10 mg 5-10 mg, oral, EVERY 4 HOURS PRN, Starting on Mon07/17/13 at 1813, Until Shirley 07/18/13 at 0406, Pain, Routine Given 07/18/2013 3:30 EDT 10 mg Given 07/17/2013 23:17 EDT 5 mg Given 07/17/2013 21:19 EDT 5 mg oxyCODONE (ROXICODONE) immediate release tablet 5-10 mg 5-10 mg, oral, EVERY 2 HOURS PRN, Starting on Shirley 07/18/13 at 1115, Until 07/20/13 at 1545, Pain, Routine Given 07/20/2013 8:40 EDT 10 mg Given 07/20/2013 6:05 EDT 10 mg Given 07/20/2013 3:09 EDT 10 mg oxyCODONE (ROXICODONE) immediate release tablet 5-15 mg 5-15 mg, oral, EVERY 4 HOURS PRN, Starting on Shirley 07/18/13 at 0405, Until Shirley 07/18/13 at 1114, Pain, Routine Given 07/18/2013 11:07 EDT 5 mg Given 07/18/2013 9:11 EDT 10 mg Given 07/18/2013 5:04 EDT 5 mg pantoprazole (PROTONIX) tablet 20 mg 20 mg, oral, 2 TIMES DAILY, First dose on Mon07/17/13 at 2100, Until Discontinued Given 07/20/2013 8:42 EDT 20 mg Given 07/19/2013 21:00 EDT 20 mg Given 07/19/2013 8:04 EDT 20 mg PEG 3350-Electrolytes (MIRALAX) packet 17 g 17 g, oral, DAILY, First dose on Mon07/17/13 at 1830, Until Discontinued Given 07/19/2013 8:04 EDT 17 g Given 07/18/2013 10:57 EDT 17 g PEG 3350-Electrolytes (MIRALAX) packet 17 g 17 g, oral, PRN, Starting on Mon07/17/13 at 2311, Until 07/20/13 at 1545, Constipation, Routine Given 07/20/2013 6:25 EDT 17 g Given 07/17/2013 23:33 EDT 17 g traZODone (DESYREL) tablet 100 mg 100 mg, oral, AT BEDTIME PRN, Starting on Mon07/17/13 at 1811, Until 07/20/13 at 1545, Sleep, Routine Given 07/19/2013 23:03 EDT 100 mg Given 07/18/2013 23:34 EDT 100 mg Given 07/18/2013 1:16 EDT 100 mg documented in this encounter Discontinued Medications Medication Sig Discontinue Reason Start Date End Da te metroNIDAZOLE (FLAGYL) 500 mg tablet Take 1 Tab by mouth every 8 hours for 10 days. 07/20/2013 07/20/2013 levofloxacin (LEVAQUIN) 500 mg tablet Take 1 Tab by mouth daily for 10 days. 07/20/2013 07/20/2013 documented as of this encounter Active and Recently Administered Medications Times are shown in EDT. Scheduled Medication Order 07/18/2013 07/19/2013 07/20/2013 acetaminophen (TYLENOL) tablet 1,000 mg (CANCELED) 1,000 mg, oral, EVERY 6 HOURS, First dose on Mon07/17/13 at 1830, Until Discontinued, Routine 0506 (Given - Provider: Kalpana Fuentes RN)1212 (Given - Provider: Jeannie Orlando RN)1804 (Given - Provider: Yonathan Menon RN)233 (Given - Provider: Brook Fortune) 0708 (Given - Provider: Brook Fortune)1101 (Given - Provider: Ignacio Crandall, RN)1824 (Given - Provider: Yoavna Pearson, RN)2304 (Given - Provider: Brook Fortune) 0605 (Given - Provider: Brook Fortune)1155 (Given - Provider: Ju Floyd, RN) budesonide-formoterol HFA (SYMBICORT) 80-4.5 mcg/actuation inhaler 2 Puff (CANCELED) 2 Puff, inhalation, 2 TIMES DAILY, First dose (after last modification) on Shirley 07/18/13 at 0900, Until Discontinued, Routine 09 (Given - Provider: Jeannie Orlando RN)2002 (Given - Provider: Brook Fortune) 08 (Given - Provider: Ignacio Crandall RN)2103 (Given - Provider: Brook Fortune) 0841 (Given - Provider: Ju Floyd, RON) DULoxetine (CYMBALTA) capsule 60 mg (CANCELED) 60 mg, oral, DAILY, First dose on Mon07/17/13 at 1830, Until Discontinued, Routine 0911 (Given - Provider: Jeannie Orlando RN) 08 (Given - Provider: Ignacio Crandall, RON) 0841 (Given - Provider: Ju Floyd, RON) fluticasone (FLONASE) nasal spray 1 Bay (CANCELED) 1 Bay, nasal - both, DAILY, First dose on Mon07/17/13 at 1830, Until Discontinued, Routine 09 (Given - Provider: Jeannie Orlando RN) 08 (Given - Provider: Ignacio Crandall, RON) 0841 (Given - Provider: uJ Floyd, RON) heparin injection 5,000 Units (CANCELED) 5,000 Units, subcutaneous, EVERY 12 HOURS, First dose on Mon07/17/13 at 2100, Until Discontinued, Routine, On Unit 1056 (Given - Provider: Frederick Nuñez, RN)2002 (Given - Provider: Brook Fortune) 803 (Given - Provider: Ignacio Crandall RN)2099 (Given - Provider: Brook Fortune) 0841 (Given - Provider: Ju Floyd RN) levofloxacin (LEVAQUIN) tablet 500 mg 500 mg, oral, DAILY, 7 doses, First dose on Mon07/18/13 at 1130, Last dose on Mon07/24/13 at 0900, Routine 1212 (Given - Provider: Jeannie Orlando RN) 0805 (Given - Provider: Ignacio Crandall, RON) 0842 (Given - Provider: Ju Floyd, RON) loratadine (CLARITIN) tablet 10 mg (CANCELED) 10 mg, oral, DAILY, First dose on Mon07/17/13 at 1830, Until Discontinued, Routine 0911 (Given - Provider: Jeannie Orlando RN) 0805 (Given - Provider: Ignacio Crandall RN) 0842 (Given - Provider: Ju Floyd RN) lovastatin (MEVACOR) tablet 10 mg (CANCELED) 10 mg, oral, DAILY, First dose on Mon07/17/13 at 1830, Until Discontinued, Routine 0911 (Given - Provider: Jeannie Orlando RN) 0805 (Given - Provider: Ignacio Crandall RN) 0842 (Given - Provider: Ju Floyd, RON) meloxicam (MOBIC) tablet 7.5 mg (CANCELED) 7.5 mg, oral, DAILY, First dose on Mon07/17/13 at 1915, Until Discontinued, Routine 0909 (Given - Provider: Jeannie Orlando RN) 0804 (Given - Provider: Ignacio Crandall, RON) 0841 (Given - Provider: Ju Floyd, RON) metoprolol (LOPRESSOR) tablet 25 mg (CANCELED) 25 mg, oral, 2 TIMES DAILY, First dose on Mon07/17/13 at 2100, Until Discontinued, Routine 0926 (Not Given - Provider: Jeannie Orlando RN - Reason: Order parameters not met)1103 (Given - Provider: Frederick Nuñez RN)2003 (Given - Provider: Brook Fortune) 0806 (Given - Provider: Ignacio Crandall, RON)2214 (Hold - Provider: Brook Fortune - Reason: Other - Comment: B/P 93/57. hold per MD Polanco) 0842 (Given - Provider: Ju Floyd, RN) metronidazole (FLAGYL) infusion 500 mg (CANCELED) 500 mg, intravenous, Administer over 30 Minutes, EVERY 8 HOURS, 40 doses, First dose (after last modification) on Mon07/18/13 at 0500, Last dose on Mon07/31/13 at 0500, Routine 0507 (Given - Provider: Kalpana Fuentes, RN) metroNIDAZOLE (FLAGYL) tablet 500 mg 500 mg, oral, EVERY 8 HOURS, 7 doses, First dose on Mon07/18/13 at 1600, Last dose on Mon07/20/13 at 1600, Routine 1708 (Given - Provider: Jeannie Orlando, RON) 0126 (Given - Provider: Brook Fortune)0805 (Given - Provider: Ignacio Crandall, RON)1554 (Given - Provider: Yovana Pearson, RON)2303 (Given - Provider: Brook Fortune) 0842 (Given - Provider: Ju Floyd, RON) pantoprazole (PROTONIX) tablet 20 mg (CANCELED) 20 mg, oral, 2 TIMES DAILY, First dose on Mon07/17/13 at 2100, Until Discontinued 0911 (Given - Provider: Jeannie Orlando RN)2004 (Given - Provider: Brook Fortune) 0804 (Given - Provider: Ignacio Crandall, RON)2100 (Given - Provider: Brook Fortune) 0842 (Given - Provider: Ju Floyd, RON) PEG 3350-Electrolytes (MIRALAX) packet 17 g (CANCELED) 17 g, oral, DAILY, First dose on Mon07/17/13 at 1830, Until Discontinued 1057 (Given - Provider: Frederick Nuñez, RON) 0804 (Given - Provider: Ignacio Crandall, RON) 0842 (Hold - Provider: Ju Floyd, RON - Reason: Patient/family refused) Continuous Medication Order 07/18/2013 07/19/2013 07/20/2013 lactated ringers (LR) infusion (CANCELED) at 140 mL/hr, intravenous, CONTINUOUS, Starting on Mon07/17/13 at 1845, Until Mon07/18/13 at 1215, Routine 0325 (New Bag - Provider: Kalpana Fuentes RN) PRN Medication Order 07/18/2013 07/19/2013 07/20/2013 calcium carbonate (TUMS) 200 mg calcium (500 mg) per chewable tablet tablet, chewable 2 Tab (CANCELED) 2 Tablet, oral, EVERY 4 HOURS PRN, Starting on 07/20/13 at 0046, Until 07/20/13 at 1545, Heartburn, Routine 0103 (Given - Provider: Brook Fortune)1021 (Given - Provider: Karissa Mariscal RN) docusate sodium (COLACE) capsule 100 mg (CANCELED) 100 mg, oral, 2 TIMES DAILY PRN, Starting on Mon07/17/13 at 1807, Until 07/20/13 at 1545, Constipation, Routine 2100 (Given - Provider: Brook Fortune) morphine injection 5 mg (CANCELED) 5 mg, intravenous, EVERY 4 HOURS PRN, Starting on Shirley 07/18/13 at 0405, Until 07/20/13 at 1545, Pain, Routine 0705 (Given - Provider: Kalpana Fuentes RN)2003 (Given - Provider: Brook Fortune) 1415 (Given - Provider: Ignacio Crandall RN)195 (Given - Provider: Brook Fortune) morphine injection 5-10 mg (CANCELED) 5-10 mg, intravenous, EVERY 4 HOURS PRN, Starting on Shirley 07/18/13 at 0014, Until Shirley 07/18/13 at 0406, Pain, Routine 0104 (Given - Provider: Kalpana Fuentes RN)0159 (Given - Provider: Kalpana Fuentes RN - Comment: Ok to per ) oxyCODONE (ROXICODONE) immediate release tablet 5-10 mg (CANCELED) 5-10 mg, oral, EVERY 4 HOURS PRN, Starting on 07/17/13 at 1813, Until Shirley 07/18/13 at 0406, Pain, Routine 0330 (Given - Provider: Kalpana Fuentes, RON) oxyCODONE (ROXICODONE) immediate release tablet 5-10 mg (CANCELED) 5-10 mg, oral, EVERY 2 HOURS PRN, Starting on Shirley 07/18/13 at 1115, Until 07/20/13 at 1545, Pain, Routine 1448 (Given - Provider: Jeannie Orlando, RN)1805 (Given - Provider: Yonathan Menon, RON)2122 (Given - Provider: Brook Fortune)2334 (Given - Provider: Brook Fortune) 0126 (Given - Provider: Brook Fortune)0342 (Given - Provider: Brook Fortune)0708 (Given - Provider: Brook Fortune)0939 (Given - Provider: Ignacio Crandall, RN)1130 (Given - Provider: Ignacio Cranadll, RN)1324 (Not Given - Provider: Ignacio Crandall RN - Reason: Other - Comment: Patient request morphine for dressing change.)1331 (Given - Provider: Ignacio Crandall RN)1554 (Given - Provider: Yovana Pearson, RON)1828 (Given - Provider: Yovana Pearson RN)2100 (Given - Provider: Brook Fortune)2304 (Given - Provider: Brook Fortune) 0103 (Given - Provider: Brook Fortune)0309 (Given - Provider: Brook Fortune)0605 (Given - Provider: Brook Fortune)0840 (Given - Provider: Ju Floyd, RON) oxyCODONE (ROXICODONE) immediate release tablet 5-15 mg (CANCELED) 5-15 mg, oral, EVERY 4 HOURS PRN, Starting on Shirley 07/18/13 at 0405, Until Shirley 07/18/13 at 1114, Pain, Routine 0504 (Given - Provider: Kalpana Fuentes, RN)0911 (Given - Provider: Jeannie Orlando, RON)1107 (Given - Provider: Frederick Nuñez, RON) PEG 3350-Electrolytes (MIRALAX) packet 17 g (CANCELED) 17 g, oral, PRN, Starting on Mon07/17/13 at 2311, Until 07/20/13 at 1545, Constipation, Routine 0625 (Given - Provider: Brook Fortune) traZODone (DESYREL) tablet 100 mg (CANCELED) 100 mg, oral, AT BEDTIME PRN, Starting on 07/17/13 at 1811, Until 07/20/13 at 1545, Sleep, Routine 0116 (Given - Provider: Kalpana Fuentes, RN)2334 (Given - Provider: Brook Fortune) 2303 (Given - Provider: Brook Fortune) documented in this encounter Orders Medications Ordered That Max ht Not Have Been Administered Count Last Ordered Date First Ordered Date diphenhydrAMINE (BENADRYL) capsule 25 mg 1 07/19/2013 albuterol (VENTOLIN HFA) inhaler 2 Puff 1 0 07/17/2013 naproxen (NAPROSYN) tablet 500 mg 1 013 ondansetron (ZOFRAN-ODT) dis integrating tablet 4 mg 1 07/17/2013 Nursing Count Last Ordered Date First Orde red Date VTE PHARMACOLOGIC PROPHYLAXI S CURRENTLY ORDERED OR ON ALTERNATIVE THER 1 07/17/2013 Wound Ostomy Count Last Ordered Date First Orde red Date WOUND EVALUATION AND TREAT 1 07/19/2013 IV Count Last Ordered Date First Orde red Date IV REQUEST 2 07/19/2013 07/17/2013 Admission Count Last Ordered Date First Orde red Date STATUS: INPATIENT POST-PROCE DURE ADMISSION UPGRADE 1 07/17/2013 Transfer Count Last Ordered Date First Orde red Date NOTIFY PPS OF DISCHARGE COMPLETE 1 07/20/20 13 PPS NOTIFICATION OF PATIENT ARRIVAL ON UNIT 1 07/18/2013 PPS NOTIFICATION OF SENDING PATIENT OFF THE UNIT 1 07/18/2013 Discharge Count Last Ordered Date First Orde red Date DISCHARGE PATIENT 1 07/20/2013 documented in this encounter Care Teams Silo Painter Relationship Specialty Start Date End Date Remedios Mehta MD [address] [place] [id number] PCP - General 02/19/09 01/04/15 documented as of this encounter
--- OUTSIDE RECORDS SUMMARY | 2024-06-24 02:18 | XMS_ITS | Encounter Summary ---
Author Organization [facility] Address [address] [place] [address] Care Team Providers Care Physical Science Professor Name Role Phone Remedios Mehta MD Primary Care Provider [phone] Encounter Details Date Type Department Care Team (Late st Contact Info) Description 09/30/2013 Documentation Visit [address] [address] Neha Argueta, PT [address] [place] [address] Social History Tobacco Use Types [...] as of this encounter Progress Notes * Neha Argueta, PT - 09/30/2013 9715 EST [facility] [address] [place] [id number] Physical Therapy Discontinue/Discharge Note Date: 09/30/2013 Reason for Referral: 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 We are opting to discontinue Ms. Husain's therapy at this time because, the patient did not schedule additional appointments. Please refer to the last Physical Therapy Progress Note for details. ASSESSMENT: Unable to assess her current status as the patient was not seen for any additional therapy sessions. GOALS: All goals discontinued. PLAN: Discontinue physical therapy. The patient is invited to contact us at any time, should any problems arise, or should her plans for rehabilitation change. NEHA ARGUETA, PT 09/30/2013 16:29 documented in this encounter Plan of Treatment Not on file documented as of this encounter Visit Diagnoses Not on filedocumented in this encounter Care Teams Physical Science Professor Relationship Specialty Start Date End Date Remedios Mehta MD [address] [place] [phone] PCP - General 02/19/09 01/04/15 documented as of this encounter
--- OUTSIDE RECORDS SUMMARY | 2024-06-24 02:18 | XMS_ITS | Encounter Summary ---
Author Organization [facility] Address [address] [place] [address] Care Team Providers Care Interactive Media Director Name Role Phone Remedios Mehta MD Primary Care Provider [phone] Reason for Visit * Reason Onset Date Comments URI 08/27/2013 Asthma 08/27/2013 Encounter Details Date Type Department Care Team (Late st Contact Info) Description 08/27/[address] [address] Remedios Mehta MD [address] [place] [phone] URI; Asthma Social History Tobacco Use Types Packs/Day Years [...] * Telephone Encounter - Tanisha Arias - 08/28/2013 0821 EDT Spoke with the patient. Patient reports having a cough/ chest congestion for the last 3 days. She states I keep coughing up green stuff. Patient does have asthma as well, and she mentions that she gets this every year and needs to be treated with an antibiotic. Patient does admit to SOB, wheezing. She will come in for further evaluation this afternoon. * Telephone Encounter - Weathers, Brook - 08/27/2013 1201 EDT Complaint: URI and Asthma Symptoms: Chest congestion & coughing up green stuff. She states that every year at this timeher asthma acts up and she needs antibiotics. How long present? 2-3 days Exposure if applicable? Additional information for the RN Team to be aware of? Can antibiotics (she asked for Z-linda) be called in for her ? Brook Weathers 08/27/2013 12:01 documented in this encounter Plan of Treatment Not on file documented as of this encounter Visit Diagnoses Not on filedocumented in this encounter Care Teams Interactive Media Director Relationship Specialty Start Date End Date Remedios Mehta MD [address] [place] [phone] PCP - General 02/19/09 01/04/15 documented as of this encounter
--- OUTSIDE RECORDS SUMMARY | 2024-06-24 02:18 | XMS_ITS | Encounter Summary ---
Author Organization [facility] Address [address] [place] [address] Care Team Providers Care Director Of Guidance Name Role Phone Remedios Mehta MD Primary Care Provider [phone] Reason for Visit * Reason Comments Drainage from Incision s/p total hystere ctomy 06/11/2013 Encounter Details Date Type Department Care Team (Late st Contact Info) Description 07/12/2013 9:30 EDT Office Visit [address] [address] Remedios Mehta MD [address] [place] [phone] S/P hysterectomy (Primary Dx); Endometrial cancer (CMS-HCC); GERD (gastroesophageal reflux disease); Chronic low back pain; Chronic neck pain; Fibromyalgia; Hyperlipidemia; Asthma; Need for Tdap vaccination; Abdominal discomfort; IBS (irritable bowel syndrome); Anemia Social History Tobacco Use Types Packs/Day Years [...] Sign Reading Time Taken Comments Blood Pressure 98/68 07/12/2013 0943 EDT Pulse 60 07/12/2013 0943 EDT Temperature 36.4 ??C (97.6 ??F) 07/12/2013 0943 EDT Respiratory Rate - - Oxygen Saturation - - Inhaled Oxygen Concentration - - Weight 93.9 kg (207 lb) 07/12/2013 0943 EDT Height - - Body Mass Index 40.43 06/04/2013 1110 EDT documented in this encounter Functional Status Cognitive Status Response Date of Assessm ent Because of a physical, menta l, or emotional condition, do you have serious difficulty concentrating, remembering, or making decisions? (5 years old or older) Yes 04/15/2010 documented as of this encounter Patient Instructions * Patient Instructions* Remedios Strong MD - 07/12/2013 10:14 EDT documented in this encounter Ordered Prescriptions Prescription Sig Dispensed Refills Start Date End Da te ferrous gluconate (FERGON) 324 mg (38 mg iron) tablet Take 1 Tab by mouth 2 times daily with breakfast and dinner. 60 Tab 4 07/12/2013 04/18/2021 lovastatin (MEVACOR) 10 mg tabletIndications:Hyperl ipidemia Take 1 Tab by mouth daily. 90 Tab 4 07/12/2013 12/23/2013 HYDROcodone-acetaminophe n (NORCO) 10-325 mg per tablet Take 1 Tab by mouth every 6 hours as needed for Pain. 116 Tab 1 07/12/2013 09/13/2013 documented in this encounter Progress Notes * Remedios Strong MD - 07/13/2013 1453 EDT Subjective: Patient ID: Cherelle Husain is an 53 y.o. female. Chief Complaint Patient presents with ??? Drainage from Incision s/p total hysterectomy 06/11/2013 HPI Here for follow up of multiple issues. Had a BRITTANY-BSO for stage 1 endometrial cancer 1 month ago. Surgery complicated by post-op infection and she had to be re-opened. She is now getting dressing changes daily at home by [facility]. Overall she is improving but still in pain every day when se wakes and by the end of the day. Would like a little longer for the pain meds. She also lost a tooth during the procedure. Hospital will pay for an implant. Needless to say, it has been a very difficult month. PMH/PSH/Meds/All/FH/SH all reviewed and updated in prism. Finally eating a normal diet. Does some light housework but not driving yet. Patient Active Problem List Diagnoses ??? Myalgia [...] reflux disease) ??? Headache ??? Endometrial cancer Past Medical History Diagnosis Date ??? Fibromyalgia [...] to Visit Medication Sig Dispense Refill ??? meloxicam (MOBIC) 7.5 mg tablet Take [...] (FLONASE) 50 mcg/actuation nasal spray Instill 1 [place] into both nostrils daily. 1 Bottle 5 [...] Take 1 Tab by mouth daily. Allergies Allergen Reactions ??? Latex, Natural Rubber [...] are negative. - See HPI Objective: BP 98/68 Pulse 60 Temp(Src) 36.4 ??C (97.6 ??F) (Tympanic) Wt 93.895 kg (207 lb) LMP 03/09/2010 Physical Exam Constitutional: She is oriented to person, place, and time. She appears well- developed and well-nourished. HENT: Mouth/Throat: Oropharynx is clear and moist. Missing right top tooth Eyes: Conjunctivae normal are normal. Neck: Normal range of motion. Neck supple. Cardiovascular: Normal rate, regular rhythm and normal heart sounds. Pulmonary/Chest: Effort normal and breath sounds normal. Abdominal: Soft. Bowel sounds are normal. Clean dry bandage on lower abdomen; wound open and clean; no surrounding erythema Musculoskeletal: Normal range of motion. Neurological: She is alert and oriented to person, place, and time. Skin: Skin is warm and dry. Psychiatric: She has a normal mood and affect. Assessment: Plan: Cherelle was seen today for drainage from incision. Diagnoses and associated orders for this visit: S/p hysterectomy and Endometrial cancer Continued hydrocodone prn for another few weeks, especially while she is still getting dressing changes Gerd (gastroesophageal reflux disease) The current medical regimen is effective; continue present plan and medications. Chronic low back pain The current medical regimen is effective; continue present plan and medications. Chronic neck pain Fibromyalgia Hyperlipidemia - lovastatin (MEVACOR) 10 mg tablet; Take 1 Tab by mouth daily. - Comprehensive Metabolic Panel (CMP) - Lipid Profile (Includes Cholesterol, Triglycerides, HDL, LDL) Asthma The current medical regimen is effective; continue present plan and medications. Flu shot next month Need for tdap vaccination Abdominal discomfort Ibs (irritable bowel syndrome) Anemia - Hemagram and Differential - ferrous gluconate (FERGON) 324 mg (38 mg iron) tablet; Take 1 Tab by mouth 2 times daily with breakfast and dinner. Return in about 2 months (around 09/11/2013) for 30 minute visit. * Emily Gibson LPN - 07/12/2013 1052 EDT Venipuncture was preformed per order of Dr Strong documented in this encounter Plan of Treatment Not on file documented as of this encounter Procedures Procedure Name Priority Date/Time Associated Diagnosis Comments DIFFERENTIAL Routine 07/12/2013 10:16 EDT COMPLETE BLOOD COUNT Routine 07/12/2013 10:16 EDT COMPLETE BLOOD COUNT AND DIFFERENTIAL Routine 07/12/2013 10:16 EDT Anemia LIPID PROFILE (INCLUDES CHOLESTEROL, TRIGLYCERIDES, HDL, LDL) Routine 07/12/2013 10:16 EDT Hyperlipidemia COMPREHENSIVE METABOLIC PANEL (CMP) Routine 07/12/2013 10:16 EDT Hyperlipidemia documented in this encounter Results * (ABNORMAL) DIFFERENTIAL (07/12/2013 10:16 EDT) Neutrophils 50.0 45.5 - 79.7 % [facility] Lymphocytes 48.0(H) 15.0 - 46.8 % [facility] Monocytes 2.0 1.8 - 12.0 % [facility] ABS Neutrophils 2.78 2.20 - 8.85 K/cmm [facility] ABS Lymphs 2.67 1.09 - 3.30 K/cmm [facility] ABS Monocytes 0.11 0.1 - 0.8 K/cmm [facility] RBC Morphology 2+ [facility] Comment: Anisocytosis 1+ Poikilocytosis 1+ Polychromasia 1+ Macrocytes 1+ Microcytes Type of Diff: Manual [facility] 07/12/2013 10:1 6 EDT 07/12/2013 18:13 EDT Remedios Mehta MD HEMATOLOGY & PF4 ORDERABLES Performing Organization Address [facility] de Phone Number [facility] [address] [place] [address] * (ABNORMAL) HEMAGRAM (07/12/2013 10:16 EDT) WBC 5.56 4.0 - 12.4 K/cmm [facility] RBC 3.71(L) 3.86 - 5.04 M/cmm [facility] Hemoglobin 10.7(L) 11.6 - 15.2 gm/dl [facility] HCT 32.3(L) 34.9 - 44.4 % [facility] MCV 87 81 - 98 fl [facility] MCH 28.9 26.7 - 33.3 pg [facility] MCHC 33.2 32.1 - 35.9 gm/dl [facility] PLT 355(H) 141 - 320 K/cmm [facility] RDW-CV 17.0(H) 11.7 - 14.6 % [facility] 07/12/2013 10:1 6 EDT 07/12/2013 18:13 EDT Remedios Mehta MD HEMATOLOGY & PF4 ORDERABLES Performing Organization Address [facility] Co de Phone Number [facility] [address] [place] [phone] * LIPID PROFILE (INCLUDES CHOLESTEROL, TRIGLYCERIDES, HDL, LDL) (07/12/2013 10:16 EDT) Pathologist [facility] Cholesterol 217 mg/dl [facility] Comment: Desirable:<200 Borderline High:200-239 High:>vp=377 Triglycerides 161 mg/dl [facility] Comment: Normal:<150 Borderline High:150-199 High:200-499 Very High:>fg=897 HDL 37 mg/dl [facility] Comment: Low:<40 Normal:40-60 Desirable: >60 LDL, Calculated 148 mg/dl [facility] Comment: Optimal:<100 Near Optimal:100-129 Borderline High:130-159 High:160-189 Very High:>nu=054 Chol/HDL Ratio 5.9 [facility] Fasting? Unknown [facility] Non HDL Cholesterol 180 mg/dl [facility] Comment: Desirable:<130 Borderline:130-159 High: 160-189 Very High: >dk=526 Blood specimen (specimen) 07/12/2013 10:16 EDT 07/12/2013 18:13 EDT Remedios Mehta MD CHEMISTRY & BLOOD GAS ORDERABLES [facility] [address] [place] [address] * (ABNORMAL) COMPREHENSIVE METABOLIC PANEL (CMP) (07/12/2013 10:16 EDT) [facility] Potassium 4.2 3.5 - 5.0 mEq/L [facility] Sodium 141 136 - 145 mEq/L [facility] Chloride 101 96 - 110 mEq/L [facility] CO2 29 24 - 32 mEq/L [facility] Total Alkaline Phosphatase 78 38 - 126 U/L [facility] Bilirubin, Total 0.8 0.2 - 1.3 mg/dl [facility] AST 16 15 - 46 U/L [facility] ALT 31 9 - 52 U/L [facility] Albumin 4.2 3.4 - 4.9 g/dl [facility] Total Protein 6.7 6.5 - 8.3 g/dl [facility] Creatinine 0.77 0.52 - 1.04 mg/dl [facility] GFR, Calculated >60 >60 ml/min/1.7 3m2 [facility] BUN 16 10 - 26 mg/dl [facility] Calcium 9.7 8.5 - 10.5 mg/dl [facility] Calculated Calcium 9.9 8.5 - 10.5 mg/dl [facility] Glucose, Serum 103(H) 70 - 100 mg/dl [facility] Fasting? Unknown [facility] Blood specimen (specimen) 07/12/2013 10:16 EDT 07/12/2013 18:13 EDT Remedios Mehta MD CHEMISTRY & BLOOD GAS ORDERABLES Performing Organization Address City/State/[facility] Co de Phone Number [facility] [address] [place] [address] documented in this encounter Visit Diagnoses Diagnosis S/P hysterectomy- Primary Acquired absence of both cervix and uterus Endometrial cancer (HCC-CMS) Malignant neoplasm of corpus uteri, except isthmus GERD (gastroesophageal reflux disease) Esophageal reflux Chronic low back pain Lumbago Chronic neck pain Cervicalgia Fibromyalgia Mylagia and myositis, unspecified Hyperlipidemia Other and unspecified hyperlipidemia Asthma Unspecified asthma Need for Tdap vaccination Need for prophylactic vaccination with combined oygkctoloc-mmqwafx-teumxxpor (DTP) vaccine Abdominal discomfort Abdominal pain, unspecified site IBS (irritable bowel syndrome) Irritable bowel syndrome Anemia Anemia, unspecified documented in this encounter Discontinued Medications Medication Sig Discontinue Reason Start Date End Da te oxyCODONE (ROXICODONE) 5 mg immediate release tablet Take 1-2 Tabs by mouth every 3 hours as needed for Pain. 06/14/2013 07/12/2013 HYDROcodone-acetaminoph en (NORCO) 10-325 mg per tablet Take 1 Tab by mouth every 6 hours as needed for Pain. Reorder 06/14/2013 07/12/2013 lovastatin (MEVACOR) 10 mg tabletIndications:Hyper lipidemia,Asthma,Need for Tdap vaccination,Abdominal discomfort,IBS (irritable bowel syndrome),GERD (gastroesophageal reflux disease) Take 1 Tab by mouth daily. Reorder 08/22/2012 07/12/2013 ferrous gluconate (FERGON) 324 mg (38 mg iron) tablet Take 1 Tab by mouth 2 times daily with breakfast and dinner. Reorder 06/14/2013 07/12/2013 documented as of this encounter Care Teams Director Of Guidance Relationship Specialty Start Date End Date Remedios Mehta MD [address] [place] [phone] PCP - General 02/19/09 01/04/15 documented as of this encounter
--- OUTSIDE RECORDS SUMMARY | 2024-06-24 02:18 | XMS_ITS | Encounter Summary ---
Author Organization [facility] Address [address] [place] [address] Care Team Providers Care Vp Talent Management Name Role Phone Remedios Mehta MD Primary Care Provider [phone] None, Provider Primary Care Provider German PabonC Primary Care Provider Elly Ling NP Primary Care Provider [phone] Reason for Visit * Reason Comments Other Encounter Details Date Type Department Care Team (Late st Contact Info) Description 08/19/[address] [address] Remedios Mehta MD [address] [place] [phone] Other Social History Tobacco Use Types [...] Dispensed Refills Start Date End Da te loratadine (CLARITIN) 10 mg tablet Take 1 Tab by mouth daily. 90 Tab 1 08/21/2013 documented in this encounter Plan of Treatment Not on file documented as of this encounter Visit Diagnoses Not on filedocumented in this encounter Discontinued Medications Medication Sig Discontinue Reason Start Date End Da te CLARITIN 10 mg tablet TAKE ONE TABLET BY MOUTH EVERY DAY Reorder 12/25/2012 08/19/2013 documented as of this encounter Additional Health Concerns Infection Onset Date Last Indicated Resolved Time Rule-Out C. difficile 2021 04/16/20212020 13:40 EDT C. difficile 04/16/2021 04/16/2021 06/15/2021 22:1 5 EDT documented as of this encounter Care Teams Vp Talent Management Relationship Specialty Start Date End Date Remedios Mehta MD [address] [place] [phone] PCP - General 02/19/09 01/04/15 None, Provider PCP - General 01/05/15 09/23/18 German Garzon, PALisbethC [address] [place] [phone] PCP - General 09/28/18 05/29/22 Elly Ling NP [address] [place] [address] PCP - General Family Medicine - Primary Care 05/30/22 documented as of this encounter
--- OUTSIDE RECORDS SUMMARY | 2024-06-24 02:18 | XMS_ITS | Encounter Summary ---
Author Organization [facility] Address [address] [place] [address] Care Team Providers Care Him Manager Name Role Phone Remedios Mehta MD Primary Care Provider [phone] Reason for Visit * Reason Comments Other Encounter Details Date Type Department Care Team (Late st Contact Info) Description 10/15/2013 Telephone [facility] Rheumatology & Immunology - [facility] [address] [place], [place] [phone] Yovana Callejas MD [address] [place] [address] [phone] Other Social History Tobacco Use Types Packs/Day [...] Dispensed Refills Start Date End Da te CYMBALTA 60 mg capsule TAKE ONE CAPSULE BY MOUTH EVERY DAY 90 Cap 3 10/15/2013 09/24/2018 documented in this encounter Plan of Treatment Not on file documented as of this encounter Visit Diagnoses Not on filedocumented in this encounter Discontinued Medications Medication Sig Discontinue Reason Start Date End Da te duloxetine (CYMBALTA) 60 mg capsuleIndications:Myalgi a and myositis Take 1 Cap by mouth daily. Reorder 10/11/2012 10/15/2013 documented as of this encounter Care Teams Him Manager Relationship Specialty Start Date End Date Remedios Mehta MD [address] [place] [phone] PCP - General 02/19/09 01/04/15 documented as of this encounter
--- OUTSIDE RECORDS SUMMARY | 2024-06-24 02:18 | XMS_ITS | Encounter Summary ---
Author Organization [facility] Address [address] [place] [address] Care Team Providers Care Manager Of Pmo Name Role Phone Remedios Mehta MD Primary Care Provider [phone] Reason for Visit * Reason Onset Date Comments Medications Refill 10/08/2013 Encounter Details Date Type Department Care Team (Late st Contact Info) Description 10/08/2013 Refill [facility] Rheumatology & Immunology - [facility] [address] [place] [address] Yovana Callejas MD [address] [place] [address] [phone] Medications Refill Social History Tobacco Use Types [...] Miscellaneous Notes * Telephone Encounter - Emy Meadows RN - 10/18/2013 1034 EST Hydrocodone ordered by Dr. Strong on 09/13 with one refill; which should be available at Cherelle's her pharmacy; Script will not be filled at this office; Cherelle will contact Dr. Strong, her PCP, if she needs clarification on pending refill. Verbalizes understanding and agrees with plan. * Telephone Encounter - Yovana Russell - 10/08/2013 1019 EST Medication(s) Requested: hydrocodone Pharmacy: [facility] Last Refill Date: 09.13.13 Last Visit Date: 12.02.13 Next Visit Date: 12/02/2013 Is patient out of medication? Will be out by end of week Yovana Russell 10/08/2013 10:19 documented in this encounter Plan of Treatment Not on file documented as of this encounter Visit Diagnoses Diagnosis Pain of right leg- Primary Pain in limb Cervical spondylosis without myelopathy Arthropathy Arthropathy, unspecified, site unspecified Fibromyalgia Mylagia and myositis, unspecified documented in this encounter Care Teams Manager Of Pmo Relationship Specialty Start Date End Date Remedios Mehta MD [address] [place] [phone] PCP - General 02/19/09 01/04/15 documented as of this encounter
--- OUTSIDE RECORDS SUMMARY | 2024-06-24 02:18 | XMS_ITS | Encounter Summary ---
Author Organization [facility] Address [address] [place] [address] Care Team Providers Care Road Oiling Truck Driver Name Role Phone Remedios Mehta MD Primary Care Provider [phone] Reason for Visit * Reason Comments Joint Pain shoulders, knees, el bows, , Back Pain Encounter Details Date Type Department Care Team (Late st Contact Info) Description 09/30/2013 10:20 EST Office Visit [facility] Rheumatology & Immunology - [facility] [address] [place] [address] Yovana Callejas MD [address] [place] [address] [phone] Fibromyalgia (Primary Dx) Social History [...] Sign Reading Time Taken Comments Blood Pressure 105/80 09/30/2013 1023 EST Pulse 74 09/30/2013 1023 EST Temperature - - Respiratory Rate 18 09/30/2013 1023 EST Oxygen Saturation - - Inhaled Oxygen Concentration - - Weight 93.4 kg (206 lb) 09/30/2013 1023 EST Height 153.7 cm (5' 0.5) 09/30/2013 1023 EST Body Mass Index 39.57 09/30/2013 1023 EST documented in this encounter Functional Status Cognitive Status Response Date of Assessm ent Because of a physical, menta l, or emotional condition, do you have serious difficulty concentrating, remembering, or making decisions? (5 years old or older) Yes 07/17/2013 documented as of this encounter Discharge Diagnoses Diagnosis 729.1 MYALGIA AND MYOSITIS NOS[ICD-9-CM] documented in this encounter Patient Instructions * Patient Instructions* Yovana Callejas MD - 09/30/2013 10:46 EST Try lyrica start with one pill at night for 2 weeks then increase to 1 pill twice a day after that documented in this encounter Ordered Prescriptions Prescription Sig Dispensed Refills Start Date End Da te pregabalin (LYRICA) 25 mg capsule Take 2 Caps by mouth 2 times daily. 60 Cap 5 09/30/2013 12/02/2013 documented in this encounter Progress Notes * Yovana Callejas MD - 09/30/2013 1259 EST Chief Complaint Patient presents with ??? Joint Pain shoulders, knees, elbows, , ??? Back Pain This patient returns here in followup of fibromyalgia syndrome. SUBJECTIVE: She states she feels poorly all over. She has a lot of financial stress and thinks thisis adding to her fatigue. Reports muscle pain and achiness in her back. Could not cook [employer] due to her severe pain. Left knee pain is being evaluated in physical therapy, already had aright knee replacement and is trying to delay this until knee replacement needed. She continues to suffer from constant puffiness and achiness in her hands and is currently not working and receiving disability. She mentions that she is planning to relocate permanently to [place] and thinks she will be selling her house within the next week or 2. She feels it will be more affordable to live in [place] and also has a daughter who lives in the region. She is not sure of the exact date of departure, but will be going to [place], [place]. She will contact us once she knows more about her future home. On a 12-point review of systems, she mentions that she has had the weight change in that she has lost weight, attributes this to constant nausea. She has occasional chest discomfort and cough, but her asthma has been relatively stable. GI, has had frequent nausea and difficulty eating, has not discussed with her PCP. She does have some constipation as well. Feels that her skin has been very itchy, joints hurt throughout and there has been a sense of tightness, but no visible puffiness. She has dysesthesias as well. Mood has been anxious and stressed for multiple reasons I have discussed.. Past Medical History Diagnosis Date ??? Fibromyalgia [...] 50 mcg/actuation nasal spray Active Instill 1 [place] into both nostrils daily. 1 Bottle 5 [...] ago ??? Alcohol Use: Yes very occasional OBJECTIVE: She is pleasant, well-appearing, well groomed.BP 105/80 Pulse 74 Resp 18 Ht 153.7 cm (60.5) Wt 93.441 kg (206 lb) BMI 39.55 kg/m2 LMP 03/09/2010 Eyes are unremarkable. Chest is clear to auscultation without wheezes. Cardiac: Regular rate and rhythm. Skin: No rashes or other abnormalities. Joints: She has degenerative changes of the DIPs and MCPs but no overt synovitis. She is diffusely tender in all fibromyalgia tender points including overthe back, anterior chest and low back and lateral thighs. IMPRESSION: 1. Fibromyalgia: Symptoms most consistent with chronic pain syndrome. 2. Osteoarthritis. No evidence of inflammatory arthritis, previously a trial of Enbrel yielded no improvement in symptoms and exposes her to unnecessary risk. RECOMMENDATIONS: 1. She seems to benefit from hydroxychloroquine. Therefore, we will continue it. 2. We will try Lyrica 25 mg at night for 2 weeks, then increase to 25 mg twice a day. She was on this medication in 2008, neither she or I can find any documentation nor recall any reason why it was stopped. She did take gabapentin but it did not go well. PLAN: Return appointment in 2 months just prior to her departure for her new home in [place]. We will determine referrals at that time and look for a design verification engineer who might be appropriate. No orders of the defined types were [...] unspecified documented in this encounter Care Teams Road Oiling Truck Driver Relationship Specialty Start Date End Date Remedios Mehta MD [address] [place] [phone] PCP - General 02/19/09 01/04/15 documented as of this encounter
--- OUTSIDE RECORDS SUMMARY | 2024-06-24 02:18 | XMS_ITS | Encounter Summary ---
Author Organization [facility] Address [address] [place] [address] Care Team Providers Care Wel[employer] Name Role Phone Remedios Mehta MD Primary Care Provider [phone] None, Provider Primary Care Provider German PabonC Primary Care Provider [phone] Elly Ling NP Primary Care Provider [phone] Reason for Visit * Reason Comments Other Encounter Details Date Type Department Care Team (Late st Contact Info) Description 10/18/[address] [address] Remedios Mehta MD [address] [place] [phone] Other Social History Tobacco Use Types [...] documented as of this encounter Care Teams Wel[employer] Relationship Specialty Start Date End Date Remedios Mehta MD [address] [place] [phone] PCP - General 02/19/09 01/04/15 None, Provider PCP - General 01/05/15 09/23/18 German Garzon, PALisbethC [address] [place] [phone] PCP - General 09/28/18 05/29/22 Elly Ling NP [address] [place] [address] PCP - General Family Medicine - Primary Care 05/30/22 documented as of this encounter
--- OUTSIDE RECORDS SUMMARY | 2024-06-24 02:19 | XMS_ITS | Encounter Summary ---
Author Organization [facility] Address [address] [place] [address] Care Team Providers Care Food Service Agent Name Role Phone Remedios Mehta MD Primary Care Provider [phone] Reason for Visit * Reason Onset Date Comments Back Pain 02/13/2013 Encounter Details Date Type Department Care Team (Late st Contact Info) Description 02/13/[address] [address] Remedios Mehta MD [address] [place] [phone] Back Pain Social History Tobacco Use Types Packs/Day Years [...] Da te HYDROcodone-acetaminophen (NORCO) 10-325 mg per tablet Take 1 Tab by mouth every 6 hours as needed for Pain. 112 Tab 0 02/14/2013 03/04/2013 documented in this encounter Miscellaneous Notes * Telephone Encounter - Cesilia Thomason - 02/14/2013 1417 EDT Per pharmacy, ok to be phoned in. Appears to have been done at 13:41. Patient notified. Cesilia Thomason RN * Telephone Encounter - Remedios Strong MD - 02/14/2013 1314 EDT Called and d/w pt. She is now on enbrel and off the plaquenil and methotrexate. She does not think her pain is from stopping those (was happening before I went off them). Thinks her pain has gotten worse since her neck injection but she called Dr Tubbs (who did the neck injection) and he disagrees. She needs something for pain - my whole body hurts, particularly neck to mid shoulders and I can't drive with this pain. Agree to increase hydrocodone to 10mg q4 with 325mg tylenol. * Telephone Encounter - Jaz De Leon - 02/14/2013 1102 EDT Cherelle calling requesting call back from the nurse today. She having a lot of pain today. * Telephone Encounter - Argelia Farias RN - 02/13/2013 1639 EDT Return call to Cherelle in response to her phone message. She is reporting a 2 wk flare in her back pain. She states its from my nec,k all the way to my spine. I need something. I can't live like this, I can hardly walk. Cherelle is unable to identify any activity that may have causes a flare in her pain. She placed a call to [facility], who in turn recommended she call [facility]. That clinic was able to move her next appt to a sooner date, but not until March 06. She currently uses Vicodin 5/500 QID but reports that's not even touching it She's unable to tolerate cold therapy to decrease any inflamation but has been using OTC products, including ICY HEAT and Bengay without benefit. At present she identifies her pain as a 8.5/10. Message will be forwarded to Dr Strong who is seeing patients in clinic at present. Cherelle understands and will wait to hear back from us. Argelia Farias, RN * Telephone Encounter - Tania Nguyen - 02/13/2013 1034 EDT Cherelle is having a lot of back pain today. She did call the pain clinic they said to call us for this. Cherelle would also like to Dr Strong about her talk with Dr Pedersen. documented in this encounter Plan of Treatment Not on file documented as of this encounter Visit Diagnoses Not on filedocumented in this encounter Discontinued Medications Medication Sig Discontinue Reason Start Date End Da te hydrocodone-acetaminophe n (LORTAB) 5-500 mg tabletIndications:Arthri tis Take 1 Tab by mouth every 6 hours as needed for Pain (up to 4 pills a day). 12/03/2012 02/14/2013 documented as of this encounter Care Teams Food Service Agent Relationship Specialty Start Date End Date Remedios Mehta MD [address] [place] [phone] PCP - General 02/19/09 01/04/15 documented as of this encounter
--- OUTSIDE RECORDS SUMMARY | 2024-06-24 02:19 | XMS_ITS | Encounter Summary ---
Author Organization [facility] Address [address] [place] [address] Care Team Providers Care Medical Interpreter Name Role Phone Remedios Mehta MD Primary Care Provider [phone] Encounter Details Date Type Department Care Team (Late st Contact Info) Description 04/17/2013 20:10 EDT - 04/17/2013 23:59 EDT Hospital Encounter [facility] [place] [address] [place] [address] Barney Kaiser MD [address] [place] [phone] Discharge Disposition: Auto Discharge Social History Tobacco [...] Yes 04/15/2010 documented as of this encounter Medications at [...] needed for Wheezing. 1 Box 1 08/25/2012 CALCIUM CARBONATE/VITAMIN D3 (CALCIUM WITH VITAMIN D ORAL) Take by mouth daily. lubiprostone (AMITIZA) 24 mcg capsule Take 24 mcg by mouth as needed. 09/27/2010 MULTIVITAMINS (MULTIVITAMIN ORAL) Take 1 Tab by mouth daily. acetaminophen (TYLENOL) 650 mg tablet Take 1 Tab by mouth every 4 hours as needed for Pain. 04/20/2010 06/14/2013 budesonide-formoterol HFA (SYMBICORT) 80-4.5 mcg/actuation HFAA inhalerIndications:As thma,Hyperlipidemia,N eed for Tdap vaccination,Abdominal discomfort,IBS (irritable bowel syndrome),GERD (gastroesophageal reflux disease) Inhale 2 Puffs as directed 2 times daily. 1 Inhaler 5 07/16/2012 06/05/2013 CLARITIN 10 mg tablet TAKE ONE TABLET BY MOUTH EVERY DAY 90 Each 1 12/25/2012 08/19/2013 doxycycline (VIBRA-TABS) 100 mg tablet Take 1 Tab by mouth 2 times daily. 14 Tab 0 04/05/2013 04/29/2013 duloxetine (CYMBALTA) 60 mg capsuleIndications:My algia and myositis Take 1 Cap by mouth daily. 30 Cap 11 10/11/2012 10/15/2013 etanercept (ENBREL) 50 mg/mL (0.98 mL) injectionIndications: Acute upper back pain,Lower back pain,DJD (degenerative joint disease), cervical,DJD (degenerative joint disease), lumbar,Chronic low back pain,Cervical spondylosis,Fibromyal aleena,Lumbosacral spondylosis without myelopathy Inject 50 mg into the skin every 7 days. 05/06/2013 fluocinonide (LIDEX) 0.05 % cream Apply to affect area(s) as directed. 60 g 3 03/23/2012 06/05/2013 fluticasone (FLONASE) 50 mcg/actuation nasal sprayIndications:Asth ma,Hyperlipidemia,Nee d for Tdap vaccination,Abdominal discomfort,IBS (irritable bowel syndrome),GERD (gastroesophageal reflux disease) Instill 1 [place] into both nostrils daily. 1 Bottle 5 07/16/2012 06/05/2013 HYDROcodone-acetamino phen (NORCO) 10-325 mg per tabletIndications:Acu te upper back pain,Lower back pain,DJD (degenerative joint disease), cervical Take 1 Tab by mouth every 6 hours as needed for Pain for 28 days. DO NOT FILL PRIOR TO START DATE 112 Tab 0 04/01/2013 05/06/2013 hydroxychloroquine (PLAQUENIL) 200 mg tabletIndications:Art hropathy,Arthritis Take 1 Tab by mouth 2 times daily. 60 Tab 5 01/30/2013 04/29/2013 ketoconazole (NIZORAL) 2 % creamIndications:Rash Apply topically daily. Apply to affect area(s) as directed. 1 Tube 1 02/17/2010 04/18/2021 lactobacillus rham. GG-inulin 10 billion cell -200 mg CpSPIndications:GERD (gastroesophageal reflux disease),Bloating,IBS (irritable bowel syndrome),Fibromyalgi a,Risk for falls,Asthma,Obesity, Class II, BMI 35-39.9, with comorbidity,Hyperglyc emia Take 1 Applicator by mouth daily. 1 Bottle 3 01/02/2013 04/29/2013 lidocaine 5 % (LIDODERM) 5 %(700 mg/patch) patchIndications:Acut e upper back pain,Lower back pain,DJD (degenerative joint disease), cervical Place 1 Patch onto the skin every 12 hours. 10 Patch 0 03/04/2013 04/29/2013 lovastatin (MEVACOR) 10 mg tabletIndications:Hyp erlipidemia,Asthma,Ne ed for Tdap vaccination,Abdominal discomfort,IBS (irritable bowel syndrome),GERD (gastroesophageal reflux disease) Take 1 Tab by mouth daily. 90 Tab 4 08/22/2012 07/12/2013 meloxicam (MOBIC) 7.5 mg tablet Take 1 Tab by mouth daily. 30 Tab 2 04/01/2013 07/04/2013 methotrexate 2.5 mg tabletIndications:Art hritis Take 6 Tabs by mouth once a week. 24 Each 11 06/04/2012 04/29/2013 metoprolol (LOPRESSOR) 25 mg tabletIndications:Hyp ertension Take 1 Tab by mouth 2 times daily. 180 Tab 4 04/04/2012 06/05/2013 omeprazole (PRILOSEC) 20 mg capsuleIndications:GE RD (gastroesophageal reflux disease),Cough Take 1 Cap by mouth 2 times daily. 60 Cap 2 01/31/2013 06/05/2013 polyethylene glycol (GLYCOLAX) 17 gram/dose powderIndications:Con stipation Take 17 g by mouth daily. 1 Bottle 3 03/04/2013 09/13/2013 trazodone (DESYREL) 100 mg tabletIndications:Lyubov lgia and myositis,Arthropathy Take 2 Tabs by mouth. Take 1-2 tabs at bedtime for sleep as needed 56 Tab 1 12/19/2012 05/06/2013 zafirlukast (ACCOLATE) 20 mg tablet TAKE ONE TABLET BY MOUTH TWICE A DAY 180 Tab 0 03/27/2013 06/05/2013 documented as of this encounter Discharge Disposition Disposition Code Departure Means Destination Auto Discharge Home documented in this encounter Plan of Treatment Not on file documented as of this encounter Visit Diagnoses Not on filedocumented in this encounter Care Teams Medical Interpreter Relationship Specialty Start Date End Date Remedios Mehta MD [address] [place] [phone] PCP - General 02/19/09 01/04/15 documented as of this encounter
--- OUTSIDE RECORDS SUMMARY | 2024-06-24 02:19 | XMS_ITS | Encounter Summary ---
Author Organization [facility] Address [address] [place] [address] Care Team Providers Care Retail Coverage Merchandiser Lead Name Role Phone Remedios Mehta MD Primary Care Provider [phone] Encounter Details Date Type Department Care Team (Latest Contact Info) Description 04/23/2013 7:45 EDT - 04/23/2013 7:48 EDT Hospital Encounter [address] [address] Antoinette Schilling MD [address] [place] [phone] Discharge Disposition: Home or Self Care Social [...] bowel syndrome),GERD (gastroesophageal reflux disease) Instill 1 [place] into both nostrils daily. 1 Bottle 5 [...] or Self Care documented in this encounter Plan of Treatment Not on file documented as of this encounter Visit Diagnoses Not on filedocumented in this encounter Care Teams Retail Coverage Merchandiser Lead Relationship Specialty Start Date End Date Remedios Mehta MD [address] [place] [phone] PCP - General 02/19/09 01/04/15 documented as of this encounter
--- OUTSIDE RECORDS SUMMARY | 2024-06-24 02:19 | XMS_ITS | Encounter Summary ---
Author Organization [facility] Address [address] [place] [address] Care Team Providers Care Foil Operator Name Role Phone Remedios Mehta MD Primary Care Provider [phone] Reason for Referral * Radiology Services (Routine/Next Available) - Closed Specialty Diagnoses / Procedures Referred By Joao proctor Referred To Contact Diagnoses Lumbosacral spondylosis without myelopathy Chronic low back pain Procedures L SPINE 4 OR MORE VIEWS Marylou Gentile PA-C [address] [place] [id number] Referral ID Status Reason Start Date Expiration Date Visits Re quested Visits Authorized [id number] Closed 04/01/2013 1 1 Reason for Visit * Reason Comments Back Pain Encounter Details Date Type Department Care Team (Late st Contact Info) Description 04/01/2013 11:00 EDT Office Visit [facility] - [address] [place] [address] Marylou Gentile PA-C [address] [place], [place] [address] [place] [address] Lumbosacral spondylosis without myelopathy (Primary Dx); Arthropathy; Low back pain; Chronic low back pain Discharge Disposition: Auto Discharge Social History Tobacco [...] - Inhaled Oxygen Concentration - - Weight 98.9 kg (218 lb) 04/01/2013 1121 EDT Height 152.4 cm (5') 04/01/2013 1121 EDT Body Mass Index 42.58 04/01/2013 1121 EDT documented in this encounter Functional Status [...] mouth daily. 30 Tab 2 04/01/2013 07/04/2013 documented in this encounter Discharge Disposition Disposition Code Departure Means Destination Auto Discharge documented in this encounter Progress Notes * Marylou Gentile - 04/01/2013 1151 EDT Cherelle Husain is being seen as a consultation from Dr. Strong. Chief Complaint Patient presents with ??? Back Pain The primary encounter diagnosis was Arthropathy. Diagnoses of Low back pain, Chronic low back pain,and Lumbosacral spondylosis without myelopathy were also pertinent to this visit. HPI Ms Husain presents today with a history of chronic low back pain that has been ongoing since she was an adolescent. This has gradually worsened. Described as a throbbing soreness with an occasional stabbing sensation that is constant in nature. She reports 90% back pain, 10% left leg pain. Left leg pain, numbness and tingling track through the buttock down the posterior lateral thigh into the posterior medial calf involving the medial foot into the first and second digits. Back pain is worse with prolonged sitting, standing or lying down. She feels better when using heat packs. Last attempt at critical care educator was over 4 years ago with no effect. She has done intermittent aquatic physical therapy since she was 21, most recently started this last Monday. Previous injection therapy consists of an L5-S1 TLESI on 03/06/2013, which provided 60% relief for a 3-hour duration. No long-term effect was seen with the steroid. Pain medication includes hydrocodone and Tylenol p.r.n. She deniesany bowel or bladder dysfunction. She has had episodes of multiple trips and falls along with lower extremity weakness related to her bilateral knee arthritis and currently uses a cane for ambulation. Current pain scale is a 7/10, at worst a 10/10, at best a 6/10. She is a former smoker whose exercise consists of her home physical therapy stretches and has been on disability for the last two years. HPI Patient Active Problem List Diagnoses ??? Myalgia [...] ??? GERD (gastroesophageal reflux disease) ??? Headache Past Medical History Diagnosis Date ??? Fibromyalgia [...] right ??? Joint replacement 04/15/2010 Right TKR ([place]) ??? Colonoscopy 2010 History Substance Use Topics ??? Smoking status: Former Smoker -- 1.0 packs/day for 20 years Types: Cigarettes Quit date: 04/23/1996 ??? Smokeless tobacco: Never Used Comment: quit 20+ yr ago ??? Alcohol Use: Yes very occasional Family History Problem Relation Age of Onset ??? Diabetes Mother ??? High Blood Pressure Father ??? High Cholesterol Father Current Outpatient Prescriptions Medication Sig Dispense Refill ??? zafirlukast (ACCOLATE) 20 mg tablet TAKE ONE TABLET BY MOUTH TWICE A DAY 180 Tab 0 ??? HYDROcodone-acetaminophen (NORCO) 10-325 mg per tablet Take 1 Tab by mouth every 6 hours as needed for Pain for 28 days. DO NOT FILL PRIOR TO START DATE 112 Tab 0 ??? etanercept (ENBREL) 50 mg/mL (0.98 mL) injection Inject 50 mg into the skin every 7 days. ??? lidocaine 5 % (LIDODERM) 5 %(700 mg/patch) patch Place 1 Patch onto the skin every 12 hours. 10Patch 0 ??? polyethylene glycol (GLYCOLAX) 17 gram/dose powder Take 17 g by mouth daily. 1 Bottle 3 ??? omeprazole (PRILOSEC) 20 mg capsule Take 1 Cap by mouth 2 times daily. 60 Cap 2 ??? hydroxychloroquine (PLAQUENIL) 200 mg tablet Take 1 Tab by mouth 2 times daily. 60 Tab 5 ??? lactobacillus rham. GG-inulin 10 billion cell -200 mg CpSP Take 1 Applicator by mouth daily. 1 Bottle 3 ??? CLARITIN 10 mg tablet TAKE ONE TABLET BY MOUTH EVERY DAY 90 Each 1 ??? trazodone (DESYREL) 100 mg tablet Take 2 Tabs by mouth. Take 1-2 tabs at bedtime for sleep as needed 56 Tab 1 ??? duloxetine (CYMBALTA) 60 mg capsule [...] by mouth daily. 90 Tab 4 ??? fluticasone (FLONASE) 50 mcg/actuation nasal spray Instill 1 Edison into both nostrils daily. 1 Bottle 5 ??? budesonide-formoterol HFA (SYMBICORT) 80-4.5 mcg/actuation HFAA inhaler Inhale 2 Puffs as directed 2 times daily. 1 Inhaler 5 ??? methotrexate 2.5 mg tablet Take 6 Tabs by mouth once a week. 24 Each 11 ??? metoprolol (LOPRESSOR) 25 mg tablet Take 1 Tab by mouth 2 times daily. 180 Tab 4 ??? fluocinonide (LIDEX) 0.05 % cream Apply to affect area(s) as directed. 60 g 3 ??? acetaminophen (TYLENOL) 650 mg tablet Take [...] ??? Wheat Containing Prod Constipation Review of Systems Constitutional: Negative for fever. HENT: Positive for neck pain. Eyes: Positive for visual disturbance. Respiratory: Positive for shortness of breath and wheezing. Cardiovascular: Positive for palpitations. Negative for chest pain. Gastrointestinal: Positive for constipation. Negative for diarrhea. Musculoskeletal: Positive for back pain, arthralgias and gait problem. Skin: Positive for rash. Neurological: Positive for weakness, numbness and headaches. Negative for seizures. Psychiatric/Behavioral: Positive for dysphoric mood. The patient is nervous/anxious. Physical ExamConstitutional: Oriented to person, place, and time. Appears well- developed and well-nourished. HENT: Head: Normocephalic and atraumatic. Eyes: EOMs are normal. Cardiovascular: Normal rate. Pulmonary/Chest: Effort normal. Psychiatric: Normal mood and affect. Neuro: Cranial nerve root III, IV, intact. Ortho Exam Gait is slowed, uses cane in right hand. Able to heel and toe walk with assistance. Skinis intact without lesion, rash or hair tuft. Tenderness along the lumbar spinous processes. No tenderness over the lumbar paravertebral muscles or SI joints. ROM present in flexion fingers reach mid calves, extension 5 degrees, rotation and lateral bending restricted to the left. Motor is 4/5 left,5/5 right in hip flexion, 5/5 quads, 4/5 left, 5/5 right hamstrings, 4/5 left, 5/5 right TA, 5/5 peroneal, and 4/5 left, 5/5 right EHL. Sensation to light touch is diminished in the left lateral thigh, lateral calf, lateral and medial foot. Reflexes are 2+ at patellar and achilles. Dorsalis pedis pulses present bilaterally. Babinski is down going. There is no clonus present. Lema's is negative. SLR is negative bilaterally. Shivam bilaterally reproduces low back pain. Hips shows good ROM. Neurologic Exam The prior workup of the patient includes: AP, lateral flexion and extension views of the lumbar spine are collected today and show 5 [id number] vertebrae with mild leftward curvature of the thoracolumbar spine. SI joints appear unremarkable. Vertebral body heights are preserved throughout. Disk heights maintained. Facet hypertrophy is seen at L3-4, L4-5 and L5-S1. Flexion, extension views show no evidence of instability or spondylolisthesis. Assessment Ms. Husain is a 52-year-old female presenting with low back pain radiating into left leg, likely related to facetogenic versus discogenic origin. Lower extremity symptoms track in an L5 distributionand may be related to an L5 radiculopathy. Physical exam shows signs of radiculopathy to include 4+/5 strength in the left hip flexor, hamstrings, TA and EHL along with loss of sensation to light touch in the left lateral thigh, bilateral calves, lateral and medial foot. The low back pain likely related to facetogenic origin. Previous MRI shows facet hypertrophy at L4-L5 and L5-S1. We discussed co nsidering targeted facet injections for therapeutic and diagnostic effect. Followup is planned for one week status post MRI. I have ordered her a TENS unit today for pain management. We discussed theimportance of weight loss management as this is likely a contributor to her chronic pain. Followup is planned for 1 week after her MRI. All the patient's questions have been answered today and she iscomfortable with the above-mentioned plan. Other Orders Placed This Visit Procedures ??? L SPINE 4 OR MORE VIEWS ??? MR SPINE-LUMBAR AND CONTENTS Plan: 1: Continue Aquatic PT 2: Weight loss management encouraged. 3: Lumbar MRI ordered. 4: Recommend PT to order TENs. 5: Rx trial Mobic given. Reviewed allergy of worsening asthma, patient would like to try anyway andwill D/C if problems. 6: Follow up 1 week s/p MRI. Consider lumbar facet injections L4-5 and L5-S1 bilaterally. MARIA Angelo documented in this encounter Miscellaneous Notes * Scanned Note-Null - UPPER CASER, SCAN 2 - 04/10/2013 0803 EDT documented in this encounter Plan of Treatment Not on file documented as of this encounter Procedures Procedure Name Priority Date/Time Associated Diagnosis Comments MR LUMBAR SPINE WO CONTRAST 04/17/2013 21:29 EDT L SPINE 4 OR MORE VIEWS Routine 04/01/2013 12:00 EDT Lumbosacral spondylosis without myelopathy Chronic low back pain documented in this encounter Results * MR LUMBAR SPINE WO CONTRAST (04/17/2013 21:29 EDT) Anatomical Region Laterality Modality Other 04/17/2013 21:2 9 EDT 04/18/2013 10:39 EDT Narrative 04/18/2013 10:39 EDT MRI of the lumbar spine April 17, 2013. History: Low back pain. Comparison: April 01, 2013. Technique: Routine multiplanar MR images of the lumbar spine were acquired. Findings: The visualized retroperitoneal structures appear unremarkable aside from the presence of a focus of hypointense signal within the myometrium of the uterus on the right which likely reflects a fibroid measuring approximately 3.5 cm in size. There is no significant scoliosis. The conus terminates at L1-L2. Signal within the distal spinal cord is normal. The lumbar vertebral bodies are normally aligned and disc space heights appear relatively well-maintained. The STIR sequence demonstrates no abnormal marrow signal in the lumbar spine. At L2-L3 and L3-L4 there is no focal herniation, central canal stenosis, or foraminal impingement. At L4-L5 there may be mild disc bulge and facet hypertrophy without focal herniation or central canal stenosis. No foraminal impingement is present. At L5-S1 there is no focal herniation, or central canal stenosis. Mild narrowing of the right neural foramen is present. Impression: 1. No evidence of focal herniation or central canal stenosis in the lumbar spine and no foraminal impingement is identified. 2. Probable fibroid uterus. Procedure Note 04/18/2013 MRI of the lumbar spine April 17, 2013. History: Low back pain. Comparison: April 01, 2013. Technique: Routine multiplanar MR images of the lumbar spine were acquired. Findings: The visualized retroperitoneal structures appear unremarkable aside from the presence of a focus of hypointense signal within the myometrium of the uterus on the right which likely reflects a fibroid measuring approximately 3.5 cm in size. There is no significant scoliosis. The conus terminates at L1-L2. Signal within the distal spinal cord is normal. The lumbar vertebral bodies are normally aligned and disc space heights appear relatively well-maintained. The STIR sequence demonstrates no abnormal marrow signal in the lumbar spine. At L2-L3 and L3-L4 there is no focal herniation, central canal stenosis, or foraminal impingement. At L4-L5 there may be mild disc bulge and facet hypertrophy without focal herniation or central canal stenosis. No foraminal impingement is present. At L5-S1 there is no focal herniation, or central canal stenosis. Mild narrowing of the right neural foramen is present. Impression: 1. No evidence of focal herniation or central canal stenosis in the lumbar spine and no foraminal impingement is identified. 2. Probable fibroid uterus. Marylou Gentile PA-C [facility] ORDERAB LES * L SPINE 4 OR MORE VIEWS (04/01/2013 12:00 EDT) Anatomical Region Laterality Modality Other 04/01/2013 12:0 0 EDT 04/02/2013 14:41 EDT Narrative 04/02/2013 14:41 EDT LUMBAR SPINE 4 VIEWS April 01, 2013 Indication: Low back pain. Comparison: March 28, 2012 and MRI September 14, 2008. Technique: AP and lateral flexion, neutral and extension views of the lumbar spine were obtained. Findings: There is mild leftward convex curvature of the thoracolumbar spine. No laurence or retrolisthesis is appreciated on flexion, neutral or extension views. Vertebral body heights are preserved. There is mild disc space narrowing at L3-L4, L4-L5 and L5-S1. There is also mild disc space narrowing and anterior marginal osteophyte formation in the visualized lower thoracic spine. Lower lumbar facet degeneration is noted. There is trace atherosclerotic calcification noted in the abdominal aorta. Procedure Note 04/02/2013 LUMBAR SPINE 4 VIEWS April 01, 2013 Indication: Low back pain. Comparison: March 28, 2012 and MRI September 14, 2008. Technique: AP and lateral flexion, neutral and extension views of the lumbar spine were obtained. Findings: There is mild leftward convex curvature of the thoracolumbar spine. No laurence or retrolisthesis is appreciated on flexion, neutral or extension views. Vertebral body heights are preserved. There is mild disc space narrowing at L3-L4, L4-L5 and L5-S1. There is also mild disc space narrowing and anterior marginal osteophyte formation in the visualized lower thoracic spine. Lower lumbar facet degeneration is noted. There is trace atherosclerotic calcification noted in the abdominal aorta. Marylou Gentile PA-C [facility] ORDERABLES documented in this encounter Visit Diagnoses Diagnosis Lumbosacral spondylosis without myelopathy- Primary Arthropathy Arthropathy, unspecified, site unspecified Low back pain Lumbago Chronic low back pain Lumbago documented in this encounter Care Teams Foil Operator Relationship Specialty Start Date End Date Remedios Mehta MD [address] [place] [id number] PCP - General 02/19/09 01/04/15 documented as of this encounter
--- OUTSIDE RECORDS SUMMARY | 2024-06-24 02:19 | XMS_ITS | Encounter Summary ---
Author Organization [facility] Address [address] [place] [address] Care Team Providers Care Computer Systems Software Architect Name Role Phone Remedios Mehta MD Primary Care Provider [phone] Encounter Details Date Type Department Care Team (Latest Contact Info) Description 06/05/2013 12:45 EDT - 06/05/2013 23:59 EDT Hospital Encounter [address] [address] Antoinette Schilling MD [address] [place] [address] Discharge Disposition: Home or Self [...] bowel syndrome),GERD (gastroesophageal reflux disease) Instill 1 [place] into both nostrils daily. 1 Bottle 5 06/05/2013 lubiprostone (AMITIZA) 24 mcg capsule Take 24 mcg by mouth as needed. 09/27/2010 MULTIVITAMINS (MULTIVITAMIN ORAL) Take 1 Tab by mouth daily. acetaminophen (TYLENOL) 325 mg tablet Take 2 Tabs by mouth every 6 hours as needed for Pain. 06/14/2013 03/17/2014 acetaminophen (TYLENOL) 650 mg tablet Take 1 Tab by mouth every 4 hours as needed for Pain. 04/20/2010 06/14/2013 CLARITIN 10 mg tablet TAKE ONE TABLET BY MOUTH EVERY DAY 90 Each 1 12/25/2012 08/19/2013 duloxetine (CYMBALTA) 60 mg capsuleIndications:Lyubov lgia and myositis Take 1 Cap by mouth daily. 30 Cap 11 10/11/2012 10/15/2013 enoxaparin (LOVENOX) 60 mg/0.6 mL injectionIndications:H ypercoagulable state ([facility]) Inject 60 mg into the skin daily. START 06/12/13 30 Syringe 0 06/12/2013 09/13/2013 ferrous gluconate (FERGON) 324 mg (38 mg iron) tablet Take 1 Tab by mouth 2 times daily with breakfast and dinner. 40 Tab 2 06/14/2013 06/14/2013 ferrous gluconate (FERGON) 324 mg (38 mg iron) tablet Take 1 Tab by mouth 2 times daily with breakfast and dinner. 60 Tab 2 06/14/2013 07/12/2013 HYDROcodone-acetaminop hen (LORTAB) 10-500 mg per tablet Take 1 Tab by mouth every 4 hours as needed for Pain for 28 days. 112 Tab 2 06/05/2013 06/14/2013 HYDROcodone-acetaminop hen (NORCO) 10-325 mg per tablet Take 1 Tab by mouth every 6 hours as needed for Pain. 30 Tab 0 06/14/2013 07/12/2013 HYDROcodone-acetaminop hen (NORCO) 10-325 mg per tabletIndications:Acut e upper back pain,Lower back pain,DJD (degenerative joint disease), cervical Take 1 Tab by mouth every 6 hours as needed for Pain for 28 days. DO NOT FILL PRIOR TO START DATE 112 Tab 0 05/06/2013 06/14/2013 ketoconazole (NIZORAL) 2 % creamIndications:Rash Apply topically [...] for Nausea. 12 Tab 0 06/14/2013 06/14/2013 ondansetron (ZOFRAN-ODT) 4 mg disintegrating tablet Take 1 Tab by mouth every 6 hours as needed for Nausea. 12 Tab 0 06/14/2013 09/24/2018 oxyCODONE (ROXICODONE) 5 mg immediate release tablet Take 1-2 Tabs by mouth every 3 hours as needed for Pain. 40 Tab 0 06/14/2013 06/14/2013 oxyCODONE (ROXICODONE) 5 [...] Code Departure Means Destination Home or Self [facility] documented in this encounter Plan of Treatment Not on file documented as of this encounter Procedures Procedure Name Priority Date/Time Associated Diagnosis Comments CT ABDOMEN, PELVIS W CONTRAST 07/17/2013 15:22 EDT TYPE AND SCREEN Routine 06/05/2013 15:23 EDT PRE-OP TYPE AND SCREEN Routine 3 12:54 EDT COMPLETE BLOOD COUNT Routine 06/05/2013 12:54 EDT COMPREHENSIVE METABOLIC PANEL (CMP) Routine 06/05/2013 12:54 EDT documented in this encounter Results * CT ABDOMEN, PELVIS W CONTRAST (07/17/2013 15:22 EDT) Anatomical Region Laterality Modality Other 07/17/2013 15:2 2 EDT 07/17/2013 16:22 EDT Narrative 07/17/2013 16:[address] ABDOMEN, PELVIS W CONTRAST ??07/17/2013 3:22 PM Clinical History/Comments: increasing pain, redness chills and firmness in abd area, guarded on exam. Comparison: Abdominal ultrasound 07/20/2012 Technique: A CT of the abdomen and pelvis was obtained. Imaging was performed from the lung bases to the ischial tuberosities. IV and oral contrast was administered. Findings: There are postsurgical changes relating to recent total abdominal hysterectomy with bilateral salpingo-oophorectomy. Several surgical clips are identified within the lower pelvis. There is moderate inflammatory stranding of the inferior pannus in the vicinity of the surgical incision and extending into the underlying abdominal wall musculature. A thin, lentiform fluid collection is identified in the deep subcutaneous tissues, intimately associated with the underlying rectus musculature and measuring approximately 5.1 cm x 0.7 cm x 0.6 cm (e.g. axial image 235 and coronal image 157). There are several tiny foci of air within the collection as well. There is evidence of a small sinus tract communicating with the skin surface, also containing tiny foci of air (e.g. sagittal image 145). A lobulated left hepatic cyst is unchanged from prior ultrasound. Note is made of mild hepatosteatosis. The gallbladder, spleen, pancreas, kidneys, adrenal glands, and bladder are within normal limits. There is no evidence of small bowel obstruction or free intraperitoneal air. There is a loop of small bowel in the left anterior pelvis which is intimately associated with the aforementioned inflammatory changes in the left inferior rectus musculature. The colon contains a somewhat prominent burden of stool. A high density object associated with gas in the colon could represent a surgical clip or ingested material. There is a small amount of free abdominopelvic fluid. The abdominal aorta is normal in caliber and demonstrates a small amount of calcified atherosclerotic plaque. No enlarged retroperitoneal lymph nodes are seen. The lung bases demonstrate no significant abnormality. The bones are unremarkable for age. Impression: 1. Findings compatible with soft tissue [...] of associated obstruction or significant wall thickening. An urgent finding was communicated to Dr. Vandana Umana by Dr. Clarke at 4 PM on 07/17/2013. I have personally reviewed the images and the above interpretation and agree with the findings. Procedure Note Tenzin Clarke MD - 07/17/2013 CT ABDOMEN, PELVIS W CONTRAST 07/17/2013 3:22 PM Clinical History/Comments: increasing pain, redness chills and firmness in abd area, guarded on exam. Comparison: Abdominal ultrasound 07/20/2012 Technique: A CT of the abdomen and pelvis was obtained. Imaging was performed from the lung bases to the ischial tuberosities. IV and oral contrast was administered. Findings: There are postsurgical changes relating to recent total abdominal hysterectomy with bilateral salpingo-oophorectomy. Several surgical clips are identified within the lower pelvis. There is moderate inflammatory stranding of the inferior pannus in the vicinity of the surgical incision and extending into the underlying abdominal wall musculature. A thin, lentiform fluid collection is identified in the deep subcutaneous tissues, intimately associated with the underlying rectus musculature and measuring approximately 5.1 cm x 0.7 cm x 0.6 cm (e.g. axial image 235 and coronal image 157). There are several tiny foci of air within the collection as well. There is evidence of a small sinus tract communicating with the skin surface, also containing tiny foci of air (e.g. sagittal image 145). A lobulated left hepatic cyst is unchanged from prior ultrasound. Note is made of mild hepatosteatosis. The gallbladder, spleen, pancreas, kidneys, adrenal glands, and bladder are within normal limits. There is no evidence of small bowel obstruction or free intraperitoneal air. There is a loop of small bowel in the left anterior pelvis which is intimately associated with the aforementioned inflammatory changes in the left inferior rectus musculature. The colon contains a somewhat prominent burden of stool. A high density object associated with gas in the colon could represent a surgical clip or ingested material. There is a small amount of free abdominopelvic fluid. The abdominal aorta is normal in caliber and demonstrates a small amount of calcified atherosclerotic plaque. No enlarged retroperitoneal lymph nodes are seen. The lung bases demonstrate no significant abnormality. The bones are unremarkable for age. Impression: 1. Findings compatible with soft tissue [...] of associated obstruction or significant wall thickening. An urgent finding was communicated to Dr. Vandana Umana by Dr. Clarke at 4 PM on 07/17/2013. I have personally reviewed the images and the above interpretation and agree with the findings. Denisha Topete MD IMG CT ORDER ONELIA * TYPE AND SCREEN (06/05/2013 15:23 EDT) ABO AB [facility] Rh Factor Positive [facility] Antibody Screen Negative [facility] Comment:SPECIMEN WILL BE HEL D UNTIL 2359 ON 06/14/2013 06/05/2013 15:2 3 EDT Provider Unknown BLOOD BANK TESTS [facility] [address] [place] [address] * PRE-OP BLOOD BANK DRAW (06/05/2013 12:54 EDT) Pre-Op Blood Bank Lab Draw SPECIMEN RECEIVED ACCEPTABLE [facility] 06/05/2013 12:5 4 EDT 06/05/2013 13:58 EDT Antoinette Schilling MD BLOOD BANK TESTS Performing Organization Address City/[facility]/ZIP Co de Phone Number [facility] [address] [place] [address] * COMPREHENSIVE METABOLIC PANEL (CMP) (06/05/2013 12:54 EDT) Potassium 4.4 3.5 - 5.0 mEq/L [facility] Sodium 141 136 - 145 mEq/L [facility] Chloride 105 96 - 110 mEq/L [facility] CO2 30 24 - 32 mEq/L [facility] Total Alkaline Phosphatase 82 38 - 126 U/L [facility] Bilirubin, Total 0.8 0.2 - 1.3 mg/dl [facility] AST 20 15 - 46 U/L [facility] ALT 41 9 - 52 U/L [facility] Albumin 4.2 3.4 - 4.9 g/dl [facility] Total Protein 6.6 6.5 - 8.3 g/dl [facility] Creatinine 0.69 0.52 - 1.04 mg/dl [facility] GFR, Calculated >60 >60 ml/min/1.7 3m2 [facility] BUN 19 10 - 26 mg/dl [facility] Calcium 9.5 8.5 - 10.5 mg/dl [facility] Calculated Calcium 9.7 8.5 - 10.5 mg/dl [facility] Glucose, Serum 92 70 - 100 mg/dl [facility] Fasting? No [facility] 06/05/2013 12:5 4 EDT 06/05/2013 13:58 EDT Antoniette Schilling MD CHEMISTRY & BLOOD GA S ORDERABLES Performing Organization Address City/[facility]/ZIP Co de Phone Number [facility] [address] [place] [address] * HEMAGRAM (06/05/2013 12:54 EDT) WBC 7.11 4.0 - 12.4 K/cmm [facility] RBC 4.11 3.86 - 5.04 M/cmm [facility] Hemoglobin 12.7 11.6 - 15.2 gm/dl [facility] HCT 37.4 34.9 - 44.4 % [facility] MCV 91 81 - 98 fl [facility] MCH 31.0 26.7 - 33.3 pg [facility] MCHC 34.0 32.1 - 35.9 gm/dl [facility] PLT 305 141 - 320 K/cmm [facility] RDW-CV 12.1 11.7 - 14.6 % [facility] 06/05/2013 12:5 4 EDT 06/05/2013 13:58 EDT Antoinette Schilling MD HEMATOLOGY & PF4 ORD ERABLES [facility] [address] [place] [address] documented in this encounter Visit Diagnoses Not on filedocumented in this encounter Care Teams Computer Systems Software Architect Relationship Specialty Start Date End Date Remedios Mehta MD [address] [place] [phone] PCP - General 02/19/09 01/04/15 documented as of this encounter
--- OUTSIDE RECORDS SUMMARY | 2024-06-24 02:19 | XMS_ITS | Encounter Summary ---
Author Organization [facility] Address [address] [place] [address] Care Team Providers Care Refrigeration Specialist Name Role Phone Remedios Mehta MD Primary Care Provider [phone] Reason for Visit * Reason Onset Date Comments Prior Auth, Medication 01/31/2013 Encounter Details Date Type Department Care Team (Late st Contact Info) Description 01/31/2013 Telephone [facility] [address] [place] [address] Yovana Callejas MD [address] [place] [phone] Prior Auth, Medication Social History Tobacco Use Types Packs/Day Years [...] Yes 04/15/2010 documented as of this encounter Miscellaneous Notes * Telephone Encounter - Kely, Ana Laura, RN - 01/31/2013 1344 EDT Left a message on the patients home phone regarding authorization. Advised her to call back with any further questions or concerns * Telephone Encounter - Luisa Venegas - 01/31/2013 1319 EDT Enbrel has been approved 01.31.13 through 05.02.2013. This is for 25 mg multi use vials as patient has latex allergy. She is to inject 50 mg once weekly so will have to use two 25 mg vials per week. Prior auth is for 8 vials per 28 days. [facility] prescription as it is part of the prior auth form. documented in this encounter Plan of Treatment Not on file documented as of this encounter Visit Diagnoses Not on filedocumented in this encounter Care Teams Refrigeration Specialist Relationship Specialty Start Date End Date Remedios Mehta MD [address] [place] [phone] PCP - General 02/19/09 01/04/15 documented as of this encounter
--- OUTSIDE RECORDS SUMMARY | 2024-06-24 02:19 | XMS_ITS | Encounter Summary ---
Author Organization [facility] Address [address] [place] [address] Care Team Providers Care Lead Oxide Mill Tender Name Role Phone Remedios Mehta MD Primary Care Provider [phone] Reason for Visit * Reason Comments Other Encounter Details Date Type Department Care Team (Late st Contact Info) Description 05/06/[address] [address] Remedios Mehta MD [address] [place] [phone] Other Social History Tobacco Use Types [...] START DATE 112 Tab 0 05/06/2013 06/14/2013 traZODone (DESYREL) 100 mg tablet TAKE ONE TO TWO TABLETS BY MOUTH AT BEDTIME NEEDED FOR SLEEP 56 Tab 1 05/06/2013 09/13/2013 documented in this encounter Miscellaneous Notes * Telephone Encounter - Tania Nguyen - 05/06/2013 0955 EDT Medication(s) Requested: [facility] Last Refill Date: 04.01.13, 12.19.12 Last Visit Date: 04.05.13 Next Visit Date: 06/05/2013 Is patient out of medication?yes Tania Nguyen 05/06/2013 9:55 documented in this encounter Plan of Treatment Not on file documented as of this encounter Visit Diagnoses Diagnosis Acute upper back pain- Primary Pain in thoracic spine Lower back pain Lumbago DJD (degenerative joint disease), cervical Degeneration of cervical intervertebral disc documented in this encounter Discontinued Medications Medication Sig Discontinue Reason Start Date End Da te trazodone (DESYREL) 100 mg tabletIndications:Myalgi a and myositis,Arthropathy Take 2 Tabs by mouth. Take 1-2 tabs at bedtime for sleep as needed Reorder 12/19/2012 05/06/2013 HYDROcodone-acetaminophe n (NORCO) 10-325 mg per tabletIndications:Acute upper back pain,Lower back pain,DJD (degenerative joint disease), cervical Take 1 Tab by mouth every 6 hours as needed for Pain for 28 days. DO NOT FILL PRIOR TO START DATE Reorder 04/01/2013 05/06/2013 documented as of this encounter Care Teams Lead Oxide Mill Tender Relationship Specialty Start Date End Date Remedios Mehta MD [address] [place] [phone] PCP - General 02/19/09 3 documented as of this encounter
--- OUTSIDE RECORDS SUMMARY | 2024-06-24 02:19 | XMS_ITS | Encounter Summary ---
Author Organization [facility] Address [address] [place] [address] Care Team Providers Care Precision Lens Grinder Apprentice Name Role Phone Remedios Mehta MD Primary Care Provider [phone] Reason for Referral * Consult, Test and Treat (Routine/Next Available) - Closed Specialty Diagnoses / Procedures Referred By Joao proctor Referred To Contact Physical Therapy Diagnoses DJD (degenerative joint disease), lumbar Lower back pain Acute upper back pain Remedios Mehta MD [address] [place] [address] Referral ID Status Reason Start Date Expiration Date V isits Requested Visits Authorized [id number] Closed Specialty Services Required 03/04/2013 1 1 Question Answer Reason for Request: left shoulder pain - ?impingement; upper and lower back pain Comments Fridays best; late morning also * Consult (Routine/Next Available) - Closed Specialty Diagnoses / Procedures Referred By Joao proctor Referred To Contact Orthopedic Surgery Diagnoses Lower back pain Acute upper back pain DJD (degenerative joint disease), cervical DJD (degenerative joint disease), lumbar Chronic low back pain Cervical spondylosis Remedios Mehta MD [address] [place] [phone] Marylou Gentile PA-C [address] [place], [place] [address] [place] [address] Referral ID Status Reason Start Date Expiration Date V isits Requested Visits Authorized [id number] Closed Specialty Services Required 03/04/2013 1 1 Question Answer Reason for Request: severe upper and low back pain Comments Severe, worsening back pain Reason for Visit * Reason Comments Follow-up Test results as well Pain Patient states in ar ms, back, legs. Leg Swelling On knees. Encounter Details Date Type Department Care Team (Late st Contact Info) Description 03/04/2013 12:15 EDT Office Visit [address] [address] Remedios Mehta MD [address] [place] [address] Acute upper back pain (Primary Dx); Lower back pain; DJD (degenerative joint disease), cervical; DJD (degenerative joint disease), lumbar; Chronic low back pain; Cervical spondylosis; Fibromyalgia; Lumbosacral spondylosis without myelopathy; Left shoulder pain; Constipation Social History Tobacco Use Types Packs/Day Years [...] Sign Reading Time Taken Comments Blood Pressure 104/70 03/04/2013 1205 EDT Pulse 60 03/04/2013 1205 EDT Temperature - - Respiratory Rate 12 03/04/2013 1205 EDT Oxygen Saturation - - Inhaled Oxygen Concentration - - Weight 100.7 kg (222 lb) 03/04/2013 1205 EDT Height 152.9 cm (5' 0.2) 03/04/2013 1205 EDT Body Mass Index 43.07 03/04/2013 1205 EDT documented in this encounter Functional Status Cognitive Status Response Date of Assessm ent Because of a physical, menta l, or emotional condition, do you have serious difficulty concentrating, remembering, or making decisions? (5 years old or older) Yes 04/15/2010 documented as of this encounter Patient Instructions * Patient Instructions* Remedios Strong MD - 03/04/2013 12:36 EDT Images from the original note were not included. Results for CHERELLE BETTENCOURT ( ) as of 03/04/2013 12:36 Ref. Range 01/23/2013 12:44 01/23/2013 12:44 Sodium Latest Range: 136-145 mEq/L 142 Potassium Latest Range: 3.5-5.0 mEq/L 4.5 CO2 Latest Range: 24-32 mEq/L 32 Chloride Latest Range: 96-110 mEq/L 100 BUN Latest Range: 10-26 mg/dl 19 Creatinine Latest Range: 0.7-1.5 mg/dl 0.78 ALT Latest Range: 9-52 U/L 40 GFR, Calculated Latest Range: >60 ml/min/1.73m2 >60 Glucose, Serum Latest Range: 70-100 mg/dl 92 Calcium Latest Range: 8.5-10.5 mg/dl 9.4 Calculated Calcium Latest Range: 8.5-10.5 mg/dl 9.1 Total Protein Latest Range: 6.5-8.3 g/dl 7.4 Albumin Latest Range: 3.4-4.9 g/dl 4.7 Total Alkaline Phosphatase Latest Range: 38-126 U/L 73 AST Latest Range: 15-46 U/L 17 Bilirubin, Total Latest Range: 0.2-1.3 mg/dl 0.9 Fasting? No range found Unknown Unknown Cholesterol No range found 207 Triglycerides Latest Range: 35-160 mg/dl 152 HDL No range found 52 LDL, Calculated No range found 125 Chol/HDL Ratio No range found 4.0 Hemoglobin A1C No range found 6.1 Est Avg Glucose No range found 128 [facility] Patient Instructions Back Care and Preventing Injuries: After Your Visit Your Care Instructions You can hurt your back doing many everyday activities: lifting a heavy box, bending down to garden,exercising at the gym, and even getting out of bed. But you can keep your back strong and healthy by doing some exercises. You also can follow a few tips for sitting, sleeping, and lifting to avoid hurting your back again. Talk to your doctor before you start an exercise program. Ask for help if you want to learn more about keeping your back healthy. Follow-up care is a gomez part of your treatment and safety. Be sure to make and go to all appointments, and call your doctor if you are having problems. It???s also a good idea to know your test results and keep a list of the medicines you take. How can you care for yourself at home? ?? Stay at a healthy weight to avoid strain on your lower back. ?? Do not smoke. Smoking increases the risk of osteoporosis, which weakens the spine. If you need help quitting, talk to your doctor about stop-smoking programs and medicines. These can increase yourchances of quitting for good. ?? Make sure you sleep in a position that maintains your back's normal curves and on a medium-firm mattress that feels comfortable. Sleep on your side with a pillow between your knees, or sleep on your back with a pillow under your knees. These positions can reduce strain on your back. ?? When you get out of bed, lie on your side and bend both knees. Drop your feet over the edge of the bed as you push up with both arms. Scoot to the edge of the bed. Make sure your feet are in line with your rear end (buttocks), and then stand up. ?? If you must stand for a long time, put one foot on a stool, ledge, or box. Exercise to strengthen your back and other muscles ?? Get at least 30 minutes of exercise on most days of the week. Walking is a good choice. You alsomay want to do other activities, such as running, swimming, cycling, or playing tennis or team sports. ?? Stretch your back muscles. Here are few exercises to try: ?? Lie on your back, and gently pull one bent knee to your chest. Put that foot back on the floor, and then pull the other knee to your chest. ?? Do pelvic tilts. Lie on your back with your knees bent. Tighten your stomach muscles. Pull your belly button (navel) in and up toward your ribs. You should feel like your back is pressing to the floor and your hips and pelvis are slightly lifting off the floor. Hold for 6 seconds while breathingsmoothly. ?? Sit with your back flat against a wall. ?? Keep your core muscles strong. The muscles of your back, belly (abdomen), and buttocks support your spine. ?? Pull in your belly, and imagine pulling your navel toward your spine. Hold this for 6 seconds, then relax. Remember to keep breathing normally as you tense your muscles. ?? Do curl-ups. Always do them with your knees bent. Keep your low back on the floor, and curl yourshoulders toward your knees using a smooth, slow motion. Keep your arms folded across your chest, not behind your head. ?? Lie on your back with your knees bent and your feet flat on the floor. Tighten your belly muscles, and then push with your feet and raise your buttocks up a few inches. Hold this position 6 seconds as you continue to breathe normally, then lower yourself slowly to the floor. Repeat 8 to 12 times. ?? If you like group exercise, try Pilates or yoga. These classes have poses that strengthen the core muscles. Protect your back when you sit ?? Place a small pillow, a rolled-up towel, or a lumbar roll in the curve of your back if you need extra support. ?? Sit in a chair that is low enough to let you place both feet flat on the floor with both knees nearly level with your hips. If your chair or desk is too high, use a foot rest to raise your knees. ?? When driving, keep your knees nearly level with your hips. Sit straight, and drive with both hands on the steering wheel. Your arms should be in a slightly bent position. ?? Try a kneeling chair, which helps tilt your hips forward. This takes pressure off your lower back. ?? Try sitting on an exercise ball. It can rock from side to side, which helps keep your back loose. Lift properly ?? Squat down, bending at the hips and knees only. If you need to, put one knee to the floor and extend your other knee in front of you, bent at a right angle (half kneeling). ?? Press your chest straight forward. This helps keep your upper back straight while keeping a slight arch in your low back. ?? Hold the load as close to your body as possible, at the level of your navel. ?? Use your feet to change direction, taking small steps. ?? Lead with your hips as you change direction. Keep your shoulders in line with your hips as you move. ?? Set down your load carefully, squatting with your knees and hips only. When should you call for help? Watch closely for changes in your health, and be sure to contact your doctor if: ?? You want more exercises to make your back and other core muscles stronger. Where can you learn more? Go to www.[employer].net/fahc Enter S810 in the search box to learn more about Back Care and Preventing Injuries: After Your Visit. ?? [id number] [employer]. Care instructions adapted under license by [facility], [facility]. This care instruction is for use with your licensed healthcare professional. If you have questions about a medical condition or this instruction, always ask your healthcare professional. [employer] disclaims any warranty or liability for your use of this information. Content Version: 9.2.506454; Last Revised: December 03, 2009 documented in this encounter Ordered Prescriptions Prescription Sig Dispensed Refills Start Date End Da te polyethylene glycol (GLYCOLAX) 17 gram/dose powderIndications:Constip ation Take 17 g by mouth daily. 1 Bottle 3 03/04/2013 09/13/2013 lidocaine 5 % (LIDODERM) 5 %(700 mg/patch) patchIndications:Acute upper back pain,Lower back pain,DJD (degenerative joint disease), cervical Place 1 Patch onto the skin every 12 hours. 10 Patch 0 03/04/2013 04/29/2013 HYDROcodone-acetaminophen (NORCO) 10-325 mg per tabletIndications:Acute upper back pain,Lower back pain,DJD (degenerative joint disease), cervical Take 1 Tab by mouth every 6 hours as needed for Pain. 112 Tab 0 03/04/2013 03/27/2013 documented in this encounter Progress Notes * Remedios Strong MD - 03/04/2013 2007 EDT Subjective: Patient ID: Cherelle Bettencourt is an 52 y.o. female. Chief Complaint Patient presents with ??? Follow-up Test results as well ??? Pain Patient states in arms, back, legs. ??? Leg Swelling On knees. HPI I'm in the worst pain ever, can barely walk and I can't continue to feel this way. Using a cane to get around now and not driving herself the pain has increased so much. Was waiting to hear from Dr Tubbs at [facility] but has not. Was hoping to have an injection for relief. Taking pain meds but hates taking them - makes her unable to drive or do anything but sleep and still has a lot of pain. Here today with roommate Norma who is a friend, and has been incredibly helpful to patient. Also having pain of left shoulder. Now unable to lift arm above shoulder height. Knees also bothering her. Has had a right total knee replacement and thinks she might need one on the left eventually. They swell up all the time. PMH/PSH/Meds/All/FH/SH all reviewed and updated in prism. Last complaint of chronic constipation. Can't afford the miralax; normal colonoscopy few years ago;no change in BMs Patient Active Problem List Diagnoses ??? Myalgia [...] to Visit Medication Sig Dispense Refill ??? HYDROcodone-acetaminophen (NORCO) 10-325 mg per tablet Take 1 Tab by mouth every 6 hours as needed for Pain. 112 Tab 0 ??? omeprazole (PRILOSEC) 20 mg capsule Take [...] MOUTH EVERY DAY 90 Each 1 ??? zafirlukast (ACCOLATE) 20 mg tablet Take 1 Tab by mouth 2 times daily. 180 Tab 1 ??? trazodone (DESYREL) 100 mg tablet [...] (FLONASE) 50 mcg/actuation nasal spray Instill 1 [place] into both nostrils daily. 1 Bottle 5 [...] are negative. - See HPI Objective: BP 104/70 Pulse 60 Resp 12 Ht 152.9 cm (60.2) Wt 100.699 kg (222 lb) BMI 43.07 kg/m2 LMP 03/09/2010 Physical Exam Constitutional: She appears well-developed and well-nourished. HENT: Mouth/Throat: Oropharynx is clear and moist. Eyes: Conjunctivae normal are normal. Neck: Normal range of motion. Neck supple. Cardiovascular: Normal rate, regular rhythm and normal heart sounds. Pulmonary/Chest: Effort normal and breath sounds normal. Musculoskeletal: Normal range of motion. Point tenderness along lower cervical and upper thoracic spine; as well as tenderness along lumbar spine; strength intact in all extremitites; normal DTRs; downward toes; normal sensation of both feet; good distal pulses Unable to lift left shoulder above shoulder height - tender over the left Ac joint; barely tolerates being touched on back or shoulder - many + trigger areas in upper arms, legs, back, neck Neurological: She is alert. Skin: No rash noted. Psychiatric: She has a normal mood and affect. Her behavior is normal. Thought content normal. Assessment: Acute on chronic upper and lower back pain - suspect related to DJD, obesity, weight gain and h/o spondylosis; ? spondylisthesis Fibromyalgia Obesity Hypertension, Hyperlipidemia Shoulder pain - ?impingement syndrome; frozen shoulder Functional constipation Plan: - etanercept (ENBREL) 50 mg/mL (0.98 mL) injection; Inject 50 mg into the skin every 7 days. - Ambulatory Consult Orthopedics MRI of cervical/thoracic and lumbar spines - Ambulatory Consult Physical Therapy - HYDROcodone-acetaminophen (NORCO) 10-325 mg per tablet; Take 1 Tab by mouth every 6 hours as needed for Pain. - lidocaine 5 % (LIDODERM) 5 %(700 mg/patch) patch; Place 1 Patch onto the skin every 12 hours Constipation - polyethylene glycol (GLYCOLAX) 17 gram/dose powder; Take 17 g by mouth daily. Return in about 4 weeks (around 04/01/2013). documented in this encounter Plan of Treatment Scheduled Referrals Name Type Priority Associated Diagnoses Orde r Schedule AMB CONSULT ORTHOPEDICS Outpatient Referral Routine Lower back pain Acute upper back pain DJD (degenerative joint disease), cervical DJD (degenerative joint disease), lumbar Chronic low back pain Cervical spondylosis Ordered: 03/04/2013 AMB CONSULT PHYSICAL THERAPY Outpatient Referral Routine DJD (degenerative joint disease), lumbar Lower back pain Acute upper back pain Ordered: 03/04/2013 documented as of this encounter Visit Diagnoses Diagnosis Acute upper back pain- Primary Pain in thoracic spine Lower back pain Lumbago Cervical spondylosis Cervical spondylosis without myelopathy DJD (degenerative joint disease), lumbar Degeneration of lumbar or lumbosacral intervertebral disc Chronic low back pain Lumbago Fibromyalgia Mylagia and myositis, unspecified Lumbosacral spondylosis without myelopathy Left shoulder pain Pain in joint, shoulder region Constipation Unspecified constipation documented in this encounter Discontinued Medications Medication Sig Discontinue Reason Start Date End Da te HYDROcodone-acetaminophe n (NORCO) 10-325 mg per tablet Take 1 Tab by mouth every 6 hours as needed for Pain. Reorder 02/14/2013 03/04/2013 documented as of this encounter Historical Medications * This list may reflect changes made after this encounter. Medication Sig Dispensed Refills Start Date End Date etanercept (ENBREL) 50 mg/mL (0.98 mL) injectionIndications:Acut e upper back pain,Lower back pain,DJD (degenerative joint disease), cervical,DJD (degenerative joint disease), lumbar,Chronic low back pain,Cervical spondylosis,Fibromyalgia, Lumbosacral spondylosis without myelopathy Inject 50 mg into the skin every 7 days. 05/06/2013 added in this encounter Care Teams Precision Lens Grinder Apprentice Relationship Specialty Start Date End Date Remedios Mehta MD [address] [place] [phone] PCP - General 02/19/09 01/04/15 documented as of this encounter
--- OUTSIDE RECORDS SUMMARY | 2024-06-24 02:19 | XMS_ITS | Encounter Summary ---
Author Organization [facility] Address [address] [place] [address] Care Team Providers Care Seed Pelleter Name Role Phone Remedios Mehta MD Primary Care Provider [phone] Reason for Visit * Reason Comments Community Health Team Encounter Details Date Type Department Care Team (Late st Contact Info) Description 04/04/2013 Community Health Team [address], [address] [place] [address] Nelda Conley, RD [address] [place] [address] Social History Tobacco Use Types Packs/Day Years [...] Yes 04/15/2010 documented as of this encounter Progress Notes * Shilpi Forte - 04/04/2013 1551 EDT ..Patient no showed/cancelled appointment with team members. Left two messages and sent letter for patient to reschedule with no response. Patient is on INACTIVE status with the [facility] Team. documented in this encounter Plan of Treatment Not on file documented as of this encounter Visit Diagnoses Not on filedocumented in this encounter Care Teams Seed Pelleter Relationship Specialty Start Date End Date Remedios Mehta MD [address] [place] [phone] PCP - General 02/19/09 01/04/15 documented as of this encounter
--- OUTSIDE RECORDS SUMMARY | 2024-06-24 02:19 | XMS_ITS | Encounter Summary ---
Author Organization [facility] Address [address] [place] [address] Care Team Providers Care Python Programmer Name Role Phone Remedios Mehta MD Primary Care Provider [phone] Encounter Details Date Type Department Care Team (Latest Contact Info) Description 04/23/2013 11:40 EDT - 04/23/2013 23:59 EDT Hospital Encounter [place] [id number] [place] [address] Remedios Mehta MD [address] [place] [phone] Discharge Disposition: Auto Discharge Social History Tobacco [...] bowel syndrome),GERD (gastroesophageal reflux disease) Instill 1 [place] into both nostrils daily. 1 Bottle 5 [...] on filedocumented in this encounter Care Teams Python Programmer Relationship Specialty Start Date End Date Remedios Mehta MD [address] [place] [phone] PCP - General 02/19/09 01/04/15 documented as of this encounter
--- OUTSIDE RECORDS SUMMARY | 2024-06-24 02:19 | XMS_ITS | Encounter Summary ---
Author Organization [facility] Address [address] [place] [address] Care Team Providers Care Security Assurance Specialist Name Role Phone Remedios Mehta MD Primary Care Provider [phone] Encounter Details Date Type Department Care Team (Late st Contact Info) Description 03/05/2013 Results Only Imaging [facility] [address] [address] Remedios Mehta MD [address] [place] [phone] Social History Tobacco Use Types Packs/Day Years [...] Name Priority Date/Time Associated Diagnosis Comments MA MAMMO SCREENING DIGITAL 04/23/2013 12:22 EDT documented in this encounter Results * MA MAMMO SCREENING DIGITAL (04/23/2013 12:22 EDT) Anatomical Region Laterality Modality Other 04/23/2013 12:2 2 EDT 04/26/2013 15:39 EDT Narrative 04/26/2013 15:39 EDT Comparison has been made to previous images. Bilateral Breast Findings: (Routine digital views with CAD) The breasts are almost entirely fat (less than 25% fibroglandular). No significant masses, calcifications or other abnormalities are seen. IMPRESSION: BILATERAL BREASTS: Negative, no evidence of malignancy. Normal interval follow-up is recommended in 12 months. OVERALL ASSESSMENT - CATEGORY 1 - NEGATIVE END OF IMPRESSION These results will be communicated to your patient via a lay letter from Radiology. If any additional imaging is needed we will contact your patient directly. I have personally reviewed the images and the above interpretation and agree with the findings. Procedure Note Barney Devries MD / Sharif Garzon MD - 04/26/2013 Comparison has been made to previous images. Bilateral Breast Findings: (Routine digital views with CAD) The breasts are almost entirely fat (less than 25% fibroglandular). No significant masses, calcifications or other abnormalities are seen. IMPRESSION: BILATERAL BREASTS: Negative, no evidence of malignancy. Normal interval follow-up is recommended in 12 months. OVERALL ASSESSMENT - CATEGORY 1 - NEGATIVE END OF IMPRESSION These results will be communicated to your patient via a lay letter from Radiology. If any additional imaging is needed we will contact your patient directly. I have personally reviewed the images and the above interpretation and agree with the findings. Remedios Mehta MD IMG MAMMOGRAPHY O RDERABLES documented in this encounter Visit Diagnoses Not on filedocumented in this encounter Care Teams Security Assurance Specialist Relationship Specialty Start Date End Date Remedios Mehta MD [address] [place] [phone] PCP - General 02/19/09 01/04/15 documented as of this encounter
--- OUTSIDE RECORDS SUMMARY | 2024-06-24 02:19 | XMS_ITS | Encounter Summary ---
Author Organization [facility] Address [address] [place] [address] Care Team Providers Care Day Guard Name Role Phone Remedios Mehta MD Primary Care Provider [phone] Encounter Details Date Type Department Care Team (Late st Contact Info) Description 03/27/[address] [address] Remedios Mehta MD [address] [place] [phone] Social History Tobacco Use Types Packs/Day [...] on filedocumented in this encounter Care Teams Day Guard Relationship Specialty Start Date End Date Remedios Mehta MD [address] [place] [phone] PCP - General 02/19/09 3 documented as of this encounter
--- OUTSIDE RECORDS SUMMARY | 2024-06-24 02:19 | XMS_ITS | Encounter Summary ---
Author Organization [facility] Address [address] [place] [address] Care Team Providers Care Grab Operator Name Role Phone Remedios Mehta MD Primary Care Provider [phone] Reason for Visit * Reason Onset Date Comments Physical Therapy 02/12/2013 Encounter Details Date Type Department Care Team (Late st Contact Info) Description 02/12/[address] [address] Therapy, Physical Physical Therapy Social History Tobacco Use Types Packs/Day Years [...] encounter Miscellaneous Notes * Telephone Encounter - JenniferjohnathanDaiDayna Reynaldo - 02/12/2013 1319 EDT [facility] [address] [place] [phone] Ms. Husain called to apologize for missing her last appointment. She states I have been laid up with really really bad back pain. I don't know what my therapist wants me to do. I have a call into my doctor who hasn't gotten back to me yet. Ms. Husain states she would like the physical therapistto give her a call on Monday02/13/13. Dayna Platt 02/12/2013 13:19 documented in this encounter Plan of Treatment Not on file documented as of this encounter Visit Diagnoses Not on filedocumented in this encounter Care Teams Grab Operator Relationship Specialty Start Date End Date Remedios Mehta MD [address] [place] [phone] PCP - General 02/19/09 01/04/15 documented as of this encounter
--- OUTSIDE RECORDS SUMMARY | 2024-06-24 02:19 | XMS_ITS | Encounter Summary ---
Author Organization [facility] Address [address] [place] [address] Care Team Providers Care Industrial Conveyor Belt Repairer Name Role Phone Remedios Mehta MD Primary Care Provider [phone] None, Provider Primary Care Provider German PabonC Primary Care Provider [phone] Elly Ling NP Primary Care Provider [phone] Encounter Details Date Type Department Care Team (Late st Contact Info) Description 03/12/2013 Telephone [facility] Family [address] [address] Remedios Mehta MD [address] [place] [address] Social History Tobacco Use Types Packs/Day [...] Telephone Encounter - Emily Gibson LPN - 03/15/2013 1157 EDT gauravn that paper work is finished and has been sent out * Telephone Encounter - Kathy Pollard - 03/12/2013 1439 EDT PAPER WORK DROPPED OF FOR DCF FOR DR. MJEIA TO FILL OUT AND MAIL IN PROVIDED ENVELOPE. documented in this encounter Plan of Treatment Not on file documented as of this encounter Visit Diagnoses Not on filedocumented in this encounter Additional Health Concerns Infection Onset Date Last Indicated Resolved Time Rule-Out C. difficile 2021 04/16/20212020 13:40 EDT C. difficile 04/16/2021 04/16/2021 06/15/2021 22:1 5 EDT documented as of this encounter Care Teams Industrial Conveyor Belt Repairer Relationship Specialty Start Date End Date Remedios Mehta MD [address] [place] [phone] PCP - General 02/19/09 01/04/15 None, Provider PCP - General 01/05/15 09/23/18 German Garzon PA-C [address] [place] [address] PCP - General 09/28/18 05/29/22 Elly Ling NP [address] [place] [address] PCP - General Family Medicine - Primary Care 05/30/22 documented as of this encounter
--- OUTSIDE RECORDS SUMMARY | 2024-06-24 02:19 | XMS_ITS | Encounter Summary ---
Author Organization [facility] Address [address] [place] [address] Care Team Providers Care Custom Wood Stair Builder Name Role Phone Remedios Mehta MD Primary Care Provider [phone] Reason for Visit * Reason Comments Back Pain buttocks pain Leg Pain left leg pain Encounter Details Date Type Department Care Team (Latest Contact Info) Description 03/06/2013 9:00 EDT Office Visit [facility] Interventional Pain [address] [place], [place] [id number] Abundio Tubbs, DO [address] [place] [address] [address] [place] [address] Neck pain (Primary Dx); Low back pain; Chronic post-traumatic stress disorder; Myalgia and myositis; Pain of right leg Social History Tobacco Use Types Packs/Day Years [...] Sign Reading Time Taken Comments Blood Pressure 153/96 03/06/2013 1011 EDT Pulse 67 03/06/2013 1011 EDT Temperature 35.6 ??C (96.1 ??F) 03/06/2013 0906 EDT Respiratory Rate 16 03/06/2013 1011 EDT Oxygen Saturation - - Inhaled Oxygen Concentration - - Weight 100.7 kg (222 lb) 03/06/2013 0906 EDT Height 152.4 cm (5') 03/06/2013 0906 EDT Body Mass Index 43.36 03/06/2013 09 EDT documented in this encounter Functional Status Cognitive Status Response Date of Assessm ent Because of a physical, menta l, or emotional condition, do you have serious difficulty concentrating, remembering, or making decisions? (5 years old or older) Yes 04/15/2010 documented as of this encounter Patient Instructions * Patient Instructions* Mak Soares RN - 03/06/2013 10:00 EDT [facility] [address] [id number] Patient Instructions You have had your lumbar Epidural Steroid Injection. The purpose of this procedure [...] our office at once. Instructions for follow-up Patient Education Topic: Method: Handout and Verbal Taught to: Patient Barriers: None Outcomes: verbalized understanding Signature:MAK SOARES RN If you have any questions about your block, please call documented in this encounter Progress Notes * Abundio Tubbs - 03/06/2013 0943 EDT PT NAME: Cherelle Husain : 1960 DOS: 03/06/2013 PRODUCTION OFFICER: Abundio Tubbs DO FERMENTING CELLAR DROPPER: N/A PROCEDURE: Lumbar epidural steroid injection (L5-S1) DIAGNOSIS: 1. Neck pain 2. Low back pain 3. Chronic post-traumatic stress disorder 4. Myalgia and myositis 5. Pain of right leg INTERVAL HISTORY Cherelle Husain presents for treatment of her low back pain. This pain is located in the mid-upper lumbar spine and radiates down the back of the right leg. There is tingling in the foot sometimes. There is no weakness and no bladder dysfunction. The back pain has been present for more than a year and does not seem to improve with conservative therapy. We have treated Ms. Husain for neck pain andheadaches but have seen no improvement from a GOLDIE or a facet injection. She has never had injections for the low back and this will be the focus today. She already has an order for MRI of the neck and lumbar spine which will occur at the end of February. EXAMINATION Blood pressure 153/96, pulse 67, temperature 35.6 ??C (96.1 ??F), temperature source Tympanic, resp. rate 16, height 152.4 cm (60), weight 100.699 kg (222 lb), last menstrual period 03/09/2010. General: awake, alert, cooperative, no apparent distress Skin: no rashes, bruises or petechiae noted Gait: antalgic gait, steady stance Joints: no redness, warmth, or swelling of the joints DTR's: patella 2+ b/l achilles 2+ b/l Motor: plantar flexion 5/5 b/l dorsiflexion 5/5 b/l Lumbar Spine: positive for paraspinal tenderness at L3-5 b/l negativeparaspinal spasm slt negative for leg pain IMPRESSION/PLAN Ms. Husain was seen today for treatment of her back and right leg pain. The plan is to perform an empiric LESI at L5-S1. She will follow up after her MRI . PROCEDURE The patient gave informed written consent to proceed with this procedure following a detailed discussion of the risks and benefits associated with epidural steroid injection in the lumbar spine. The patient was then placed in the prone position, the skin over the thoracic area was prepped with chlor hexadine, and the site was draped with sterile towels. Strict sterile technique was maintained throughout the procedure. Fluoroscopy was used to visualize the L5-S1 disc space. The skin and subcutaneous tissue over this level was anesthetized by infiltration of 2% lidocaine. An 18 guage touhy needle was inserted under fluoroscopic guidance by coaxial technique and advanced towards the interspace.Loss of resistance with normal saline was used to find the epidural space. One pass was required and there was no paresthesia. Contrast dye was injected under live fluoroscopy demonstrating a typicalepidural pattern with no evidence of intravascular or intrathecal injection. After negative aspirati on, 80 mg Depo-Medrol and 2 ml Normal Saline were injected. The needle was then flushed and withdrawn. The patient tolerated the procedure well, there were no apparent complications, and discharged in stable condition. Written and verbal discharge instructions were reviewed with the patient prior to discharge. Abundio Tubbs DO 03/06/2013 * Georgie Foster - 03/06/2013 0910 EDT [facility] Rooming Note Does patient have a Public Health Sanitarian? yes Is patient NPO? (Solids since midnight [...] ? no Other: documented in this encounter Miscellaneous Notes * Scanned Note-Null - PAPER SORTER AND COUNTER, SCAN 2 - 03/08/2013 1244 EDT documented in this encounter Plan of Treatment Not on file documented as of this encounter Visit Diagnoses Diagnosis Neck pain- Primary Cervicalgia Low back pain Lumbago Chronic post-traumatic stress disorder Posttraumatic stress disorder Myalgia and myositis Mylagia and myositis, unspecified Pain of right leg Pain in limb documented in this encounter Care Teams Custom Wood Stair Builder Relationship Specialty Start Date End Date Remedios Mehta MD [address] [place] [phone] PCP - General 02/19/09 01/04/15 documented as of this encounter
--- OUTSIDE RECORDS SUMMARY | 2024-06-24 02:19 | XMS_ITS | Encounter Summary ---
Author Organization [facility] Address [address] [place] [address] Care Team Providers Care Archery Instructor Name Role Phone Keshawn Mehta MD Primary Care Provider [phone] Reason for Visit * Reason Comments Back Pain f/u needs med refill , issue to discuss Discuss Surgery having BRITTANY next week because of Grade 1 endometrial ca found on biopsy Encounter Details Date Type Department Care Team (Late st Contact Info) Description 06/05/2013 15:00 EDT Office Visit [address] [address] Keshawn Mehta MD [address] [place] [address] Asthma (Primary Dx); Cervical spondylosis without myelopathy; Uterine cancer (CMS-HCC) (HCC-CMS); Hyperlipidemia; Need for Tdap vaccination; Abdominal discomfort; IBS (irritable bowel syndrome); GERD (gastroesophageal reflux disease); Hypertension; Cough Social History Tobacco Use Types Packs/Day Years [...] Sign Reading Time Taken Comments Blood Pressure 102/68 06/05/2013 1523 EDT Pulse 70 06/05/2013 1523 EDT Temperature - - Respiratory Rate - - Oxygen Saturation - - Inhaled Oxygen Concentration - - Weight 102.1 kg (225 lb) 06/05/2013 1523 EDT Height - - Body Mass Index 43.94 06/04/2013 1110 EDT documented in this encounter Functional Status Cognitive Status Response Date of Assessm ent Because of a physical, menta l, or emotional condition, do you have serious difficulty concentrating, remembering, or making decisions? (5 years old or older) Yes 04/15/2010 documented as of this encounter Ordered Prescriptions Prescription Sig Dispensed Refills Start Date End Da te fluticasone (FLONASE) 50 mcg/actuation nasal sprayIndications:Asthma, Hyperlipidemia,Need for Tdap vaccination,Abdominal discomfort,IBS (irritable bowel syndrome),GERD (gastroesophageal reflux disease) Instill 1 [place] into both nostrils daily. 1 Bottle 5 06/05/2013 fluocinonide (LIDEX) 0.05 % cream Apply to affect area(s) as directed. 60 g 3 06/05/2013 budesonide-formoterol HFA (SYMBICORT) 80-4.5 mcg/actuation HFA Aerosol Inhaler inhalerIndications:Asthm a,Hyperlipidemia,Need for Tdap vaccination,Abdominal discomfort,IBS (irritable bowel syndrome),GERD (gastroesophageal reflux disease) Inhale 2 Puffs as directed 2 times daily. 1 Inhaler 5 06/05/2013 HYDROcodone-acetaminophe n (LORTAB) 10-500 mg per tablet Take 1 Tab by mouth every 4 hours as needed for Pain for 28 days. 112 Tab 2 06/05/2013 06/14/2013 omeprazole (PRILOSEC) 20 mg capsuleIndications:GERD (gastroesophageal reflux disease),Cough Take 1 Cap by mouth 2 times daily. 60 Cap 5 06/05/2013 12/20/2013 zafirlukast (ACCOLATE) 20 mg tablet Take 1 Tab by mouth 2 times daily. 180 Tab 5 06/05/2013 04/18/2021 metoprolol (LOPRESSOR) 25 mg tabletIndications:Hypert ension Take 1 Tab by mouth 2 times daily. 180 Tab 4 06/05/2013 09/24/2018 documented in this encounter Progress Notes * Keshawn Mejia MD - 06/06/2013 0840 EDT Subjective: Patient ID: Cherelle Husain is an 53 y.o. female. Chief Complaint Patient presents with ??? Back Pain f/u needs med refill, issue to discuss ??? Discuss Surgery having BRITTANY next week because of Grade 1 endometrial ca found on biopsy HPI Here for f/u of back pain mostly - needs refill on pain meds. Takes the lortab 3-4 times a day. Has been going to PT and the pool but is having surgery next weekand this will be interrupted. Very anxious about upcoming surgery and anxious about the diagnosis of uterine cancer. Expressed feeling less like a woman with the concept as well as having little family or friend support. Her roommate is moving out and is in a relationship with pt's ex- so is not a support currently. PMH/PSH/Meds/All/FH/SH all reviewed and updated in prism. No other new concerns. Patient Active Problem List Diagnoses ??? Myalgia [...] to Visit Medication Sig Dispense Refill ??? enoxaparin (LOVENOX) 60 mg/0.6 mL injection [...] ago ??? Alcohol Use: Yes very occasional ROS - See HPI Objective: BP 102/68 Pulse 70 Wt 102.059 kg (225 lb) LMP 03/09/2010 Physical Exam Constitutional: She is oriented to person, place, and time. She appears well- developed and well-nourished. HENT: Mouth/Throat: Oropharynx is clear and moist. Eyes: Conjunctivae normal are normal. Neck: Normal range of motion. Neck supple. Cardiovascular: Normal rate, regular rhythm and normal heart sounds. Pulmonary/Chest: Effort normal and breath sounds normal. Musculoskeletal: Walks with cane; has difficulty with getting up on to examining table secondary to pain in mid to lower back Neurological: She is alert and oriented to person, place, and time. Psychiatric: Her behavior is normal. Judgment and thought content normal. Sad affect; no SI/HI Assessment: Plan: Cherelle was seen today for back pain and discuss surgery. Diagnoses and associated orders for this visit: Asthma - budesonide-formoterol HFA (SYMBICORT) 80-4.5 mcg/actuation HFA Aerosol Inhaler inhaler; Inhale 2 Puffs as directed 2 times daily. - fluticasone (FLONASE) 50 mcg/actuation nasal spray; Instill 1 [place] into both nostrils daily. Cervical spondylosis without myelopathy lortab refilled Medication agreement reviewed Uterine cancer I will not be here next week - pt is aware that I will be out of the state. Will see if a female from the [facility] team can visit with her Hyperlipidemia Ibs (irritable bowel syndrome) - Continue current dietary recommendations Gerd (gastroesophageal reflux disease) - omeprazole (PRILOSEC) 20 mg capsule; Take 1 Cap by mouth 2 times daily. Hypertension - metoprolol (LOPRESSOR) 25 mg tablet; Take 1 Tab by mouth 2 times daily. Return in about 6 weeks (around 07/17/2013). documented in this encounter Miscellaneous Notes * Addendum Note - Keshawn Mejia MD - 06/06/2013 0858 EDTAddended by: KESHAWN MEJIA on: 06/06/2013 08:58 Modules accepted: Level of Service documented in this encounter Plan of Treatment Not on file documented as of this encounter Visit Diagnoses Diagnosis Asthma- Primary Unspecified asthma Cervical spondylosis without myelopathy Uterine cancer ([facility]) Malignant neoplasm of uterus, part unspecified Hyperlipidemia Other and unspecified hyperlipidemia Need for Tdap vaccination Need for prophylactic vaccination with combined votzumnlzf-bcdgyyn-ezocxmelx (DTP) vaccine Abdominal discomfort Abdominal pain, unspecified site IBS (irritable bowel syndrome) Irritable bowel syndrome GERD (gastroesophageal reflux disease) Esophageal reflux Hypertension Unspecified essential hypertension Cough documented in this encounter Discontinued Medications Medication Sig Discontinue Reason Start Date End Da te budesonide-formoterol HFA (SYMBICORT) 80-4.5 mcg/actuation HFAA inhalerIndications:Asth ma,Hyperlipidemia,Need for Tdap vaccination,Abdominal discomfort,IBS (irritable bowel syndrome),GERD (gastroesophageal reflux disease) Inhale 2 Puffs as directed 2 times daily. Reorder 07/16/2012 06/05/2013 fluocinonide (LIDEX) 0.05 % cream Apply to affect area(s) as directed. Reorder 03/23/2012 06/05/2013 fluticasone (FLONASE) 50 mcg/actuation nasal sprayIndications:Asthma ,Hyperlipidemia,Need for Tdap vaccination,Abdominal discomfort,IBS (irritable bowel syndrome),GERD (gastroesophageal reflux disease) Instill 1 [place] into both nostrils daily. Reorder 07/16/2012 06/05/2013 metoprolol (LOPRESSOR) 25 mg tabletIndications:Hyper tension Take 1 Tab by mouth 2 times daily. Reorder 04/04/2012 06/05/2013 zafirlukast (ACCOLATE) 20 mg tablet TAKE ONE TABLET BY MOUTH TWICE A DAY Reorder 03/27/2013 06/05/2013 omeprazole (PRILOSEC) 20 mg capsuleIndications:GERD (gastroesophageal reflux disease),Cough Take 1 Cap by mouth 2 times daily. Reorder 01/31/2013 06/05/2013 HYDROcodone-acetaminoph en (LORTAB) 10-500 mg per tablet Take 1 Tab by mouth every 4 hours as needed. Reorder 06/05/2013 documented as of this encounter Care Teams Archery Instructor Relationship Specialty Start Date End Date Keshawn Mehta MD [address] [place] [phone] PCP - General 02/19/09 01/04/15 documented as of this encounter
--- OUTSIDE RECORDS SUMMARY | 2024-06-24 02:19 | XMS_ITS | Encounter Summary ---
Author Organization [facility] Address [address] [place] [address] Care Team Providers Care Engine Room Operator Name Role Phone Remedios Mehta MD Primary Care Provider [phone] Reason for Visit * Reason Onset Date Comments Appointment Related 03/12/2013 Encounter Details Date Type Department Care Team (Late st Contact Info) Description 03/12/[address] [address] Remedios Mehta MD [address] [place] [phone] Appointment Related Social History Tobacco Use Types Packs/Day Years [...] Telephone Encounter - Remedios Strong MD - 03/13/2013 1655 EDT Called and spoke with Cherelle. We reviewed her recent DETAIL DRAFTER visit. She is leaning more towards having a hysterectomy - she will discuss this with Dr Schilling (DETAIL DRAFTER). Also discussed recent denial by insurance for the MRI of her back. She will discuss this with Dr Tubbs who might be able to get it approved. Encouraged her to keep me updated and f/u prn. * Telephone Encounter - Argelia Farias RN - 03/13/2013 1431 EDT Cherelle notified that her application for [place] DM[place] Handicap plates has been completed. They still need her signature. I will mail the forms directly to her tonight thru the [employer]. Copies made and will be under Scanned Documents. Argelia Farias RN * Telephone Encounter - Argelia Farias RN - 03/12/2013 1738 EDT Return call to Cherelle. She sounded as if I had woken her but denied she was sleeping. Cherelle reports that she had an U/S and the lining has grown back. I was unable to find such studiesin the [facility] E[facility]. Cherelle clarified that the did it at the DETAIL DRAFTER office.. I've reviewed all incoming reports within Dr Strong' in basket as of this evening and do not see a copy of those office notes or an U/S report. Cherelle understands that Dr Strong will need to review those records before she can discuss her recommendations. Argelia Farias RN * Telephone Encounter - Jaz De Leon - 03/12/2013 1444 EDT Caller: Cherelle Reason for Call:appointment related Duration of issue: from 5.7. Appointment Requested: no Appointment Scheduled: no Advice Requested: Please Have Dr. Strong call Cherelle to discuss her appointment from 03/05/13(not clear on what She saw) documented in this encounter Plan of Treatment Not on file documented as of this encounter Visit Diagnoses Not on filedocumented in this encounter Care Teams Engine Room Operator Relationship Specialty Start Date End Date Remedios Mehta MD [address] [place] [phone] PCP - General 02/19/09 01/04/15 documented as of this encounter
--- OUTSIDE RECORDS SUMMARY | 2024-06-24 02:19 | XMS_ITS | Encounter Summary ---
Author Organization [facility] Address [address] [place] [address] Care Team Providers Care Chief Nursing Executive Name Role Phone Remedios Mehta MD Primary Care Provider [phone] None, Provider Primary Care Provider German PabonC Primary Care Provider [phone] Elly Ling NP Primary Care Provider [phone] Reason for Visit * Reason Comments Other Encounter Details Date Type Department Care Team (Late st Contact Info) Description 03/27/[address] [address] Remedios Mehta MD [address] [place] [phone] Other Social History Tobacco Use Types [...] START DATE 112 Tab 0 04/01/2013 05/06/2013 zafirlukast (ACCOLATE) 20 mg tablet TAKE ONE TABLET BY MOUTH TWICE A DAY 180 Tab 0 03/27/2013 06/05/2013 documented in this encounter Plan of Treatment Not on file documented as of this encounter Visit Diagnoses Diagnosis Acute upper back pain- Primary Pain in thoracic spine Lower back pain Lumbago DJD (degenerative joint disease), cervical Degeneration of cervical intervertebral disc documented in this encounter Discontinued Medications Medication Sig Discontinue Reason Start Date End Da te zafirlukast (ACCOLATE) 20 mg tabletIndications:Asthma ,Hyperlipidemia,Need for Tdap vaccination,Abdominal discomfort,IBS (irritable bowel syndrome),GERD (gastroesophageal reflux disease) Take 1 Tab by mouth 2 times daily. Reorder 12/20/2012 03/27/2013 HYDROcodone-acetaminophe n (NORCO) 10-325 mg per tabletIndications:Acute upper back pain,Lower back pain,DJD (degenerative joint disease), cervical Take 1 Tab by mouth every 6 hours as needed for Pain. Reorder 03/04/2013 03/27/2013 documented as of this encounter Additional Health Concerns Infection Onset Date Last Indicated Resolved Time Rule-Out C. difficile 2021 04/16/20212020 13:40 EDT C. difficile 04/16/2021 04/16/2021 06/15/2021 22:1 5 EDT documented as of this encounter Care Teams Chief Nursing Executive Relationship Specialty Start Date End Date Remedios Mehta MD [address] [place] [phone] PCP - General 02/19/09 01/04/15 None, Provider PCP - General 01/05/15 09/23/18 German Garzon PA-C [address] [place] [phone] PCP - General 09/28/18 05/29/22 Elly Ling, HEIDE [address] [place] [address] PCP - General Family Medicine - Primary Care 05/30/22 documented as of this encounter
--- OUTSIDE RECORDS SUMMARY | 2024-06-24 02:19 | XMS_ITS | Encounter Summary ---
Author Organization [facility] Address [address] [place] [address] Care Team Providers Care Slipman Name Role Phone Remedios Mehta MD Primary Care Provider [phone] Reason for Visit * Reason Onset Date Comments Appointment Related 02/12/2013 Pt. received a call from her pcp stating Dr. Pedersen wouldn't see her anymore and wants to know why, call pt. Encounter Details Date Type Department Care Team (Late st Contact Info) Description 02/12/[address] [facility] Gastroenterology - [address] [address] David Pedersen MD Appointment Related (Pt. received a call from her pcp stating Dr. Pedersen wouldn't see her anymore and wants to know why, call pt. ) Social History Tobacco Use Types Packs/Day [...] encounter Miscellaneous Notes * Telephone Encounter - Tessa Ang - 02/13/2013 0944 EDT Patient was called. She is going to talk with her PCP to see if they would like her evaluated in our office. Await referral from PCP. * Telephone Encounter - David Pedersen MD - 02/12/2013 1614 EDT This a patient with a history of cancellations and no-shows dating back to the s. Last no-showin my office was September. GERD and IBS are medically managed. If there is a question I can answer, or a consultative role that would support an out-patient appointment, I would be happy to see her. However, her chronic symptoms probably can not be impacted on by another specialty visit. Please advise. She is welcome in my/our office if there is a question to be answered. PLM documented in this encounter Plan of Treatment Not on file documented as of this encounter Visit Diagnoses Not on filedocumented in this encounter Care Teams Slipman Relationship Specialty Start Date End Date Remedios Mehta MD [address] [place] [phone] PCP - General 02/19/09 01/04/15 documented as of this encounter
--- OUTSIDE RECORDS SUMMARY | 2024-06-24 02:19 | XMS_ITS | Encounter Summary ---
Author Organization [facility] Address [address] [place] [address] Care Team Providers Care Permastone Mechanic Name Role Phone Remedios Mehta MD Primary Care Provider +1 [phone] Encounter Details Date Type Department Care Team (Latest Contact Info) Description 02/01/2013 13:53 EDT - 02/01/2013 23:59 EDT Hospital Encounter [facility] - Other [address] [place], [place] [address] Remedios Mehta MD [address] [place] [phone] Discharge Disposition: Home or Self Care [...] 1 12/25/2012 08/19/2013 duloxetine (CYMBALTA) 60 mg capsuleIndications:My algia and myositis Take 1 Cap by mouth daily. 30 Cap 11 10/11/2012 10/15/2013 fluocinonide (LIDEX) 0.05 % cream Apply to affect area(s) as directed. 60 g 3 03/23/2012 06/05/2013 fluticasone (FLONASE) 50 mcg/actuation nasal sprayIndications:Asth ma,Hyperlipidemia,Nee d for Tdap vaccination,Abdominal discomfort,IBS (irritable bowel syndrome),GERD (gastroesophageal reflux disease) Instill 1 [place] into both nostrils daily. 1 Bottle 5 07/16/2012 06/05/2013 hydrocodone-acetamino phen (LORTAB) 5-500 mg tabletIndications:Art hritis Take 1 Tab by mouth every 6 hours as needed for Pain (up to 4 pills a day). 120 Tab 3 12/03/2012 02/14/2013 hydroxychloroquine (PLAQUENIL) 200 mg tabletIndications:Art hropathy,Arthritis Take [...] mouth daily. 1 Bottle 3 01/02/2013 04/29/2013 lovastatin (MEVACOR) 10 mg tabletIndications:Hyp erlipidemia,Asthma,Ne ed for Tdap vaccination,Abdominal discomfort,IBS (irritable bowel syndrome),GERD (gastroesophageal reflux disease) Take 1 Tab by mouth daily. 90 Tab 4 08/22/2012 07/12/2013 methotrexate 2.5 mg tabletIndications:Art hritis Take 6 Tabs by mouth once a week. 24 Each 11 06/04/2012 04/29/2013 metoprolol (LOPRESSOR) 25 mg tabletIndications:Hyp ertension Take 1 Tab by mouth 2 times daily. 180 Tab 4 04/04/2012 06/05/2013 omeprazole (PRILOSEC) 20 mg capsuleIndications:GE RD (gastroesophageal reflux disease),Cough Take 1 Cap by mouth 2 times daily. 60 Cap 2 01/31/2013 06/05/2013 trazodone (DESYREL) 100 mg tabletIndications:Lyubov lgia and myositis,Arthropathy Take 2 Tabs by mouth. Take 1-2 tabs at bedtime for sleep as needed 56 Tab 1 12/19/2012 05/06/2013 zafirlukast (ACCOLATE) 20 mg tabletIndications:Ast hma,Hyperlipidemia,Ne ed for Tdap vaccination,Abdominal discomfort,IBS (irritable bowel syndrome),GERD (gastroesophageal reflux disease) Take 1 Tab by mouth 2 times daily. 180 Tab 1 12/20/2012 03/27/2013 documented as of this encounter Discharge Disposition Disposition Code Departure Means Destination Home or Self Jail documented in this encounter Plan of Treatment Not on file documented as of this encounter Visit Diagnoses Not on filedocumented in this encounter Care Teams Permastone Mechanic Relationship Specialty Start Date End Date Remedios Mehta MD [address] [place] [phone] PCP - General 02/19/09 01/04/15 documented as of this encounter
--- OUTSIDE RECORDS SUMMARY | 2024-06-24 02:19 | XMS_ITS | Encounter Summary ---
Author Organization [facility] Address [address] [place] [address] Care Team Providers Care Police Officer Name Role Phone Remedios Mehta MD Primary Care Provider +1 [phone] Encounter Details Date Type Department Care Team (Late st Contact Info) Description 05/06/2013 Phlebotomy Only [address] [address] Revit Drafter, Outpatient Arthropathy; Encounter for long-term (current) use of other medications; Hypercoagulable state (CMS-HCC) ([facility]) Social History Tobacco Use Types Packs/Day Years [...] Priority Date/Time Associated Diagnosis Comments DIFFERENTIAL Routine 05/06/2013 14:00 EDT COMPLETE BLOOD COUNT Routine 05/06/2013 14:00 EDT COMPLETE BLOOD COUNT AND DIFFERENTIAL Routine 05/06/2013 14:00 EDT Arthropathy Encounter for long-term (current) use of other medications COMPREHENSIVE METABOLIC PANEL (CMP) Routine 05/06/2013 14:00 EDT Arthropathy Encounter for long-term (current) use of other medications documented in this encounter Results * (ABNORMAL) DIFFERENTIAL (05/06/2013 14:00 EDT) % Neutrophils 55.0 45.5 - 79.7 % [facility] % Lymphocytes 33.1 15.0 - 46.8 % [facility] % Monocytes 9.9 1.8 - 12.0 % [facility] % Eosinophils 1.5 0.6 - 6.9 % [facility] % Basophils 0.5 0.2 - 1.4 % [facility] ABS Neutrophils 4.64 2.20 - 8.85 K/cmm [facility] ABS Lymphs 2.79 1.09 - 3.30 K/cmm [facility] ABS Monocytes 0.84(H) 0.1 - 0.8 K/cmm [facility] ABS Eosinophils 0.13 0.03 - 0.61 K/cmm [facility] ABS Basophils 0.05 0.01 - 0.11 K/cmm [facility] Type of Diff: Automated [facility] 05/06/2013 14:0 0 EDT 05/06/2013 14:40 EDT Yovana Callejas MD HEMATOLOGY & PF4 ORDERABLES [facility] [address] [place] [address] * HEMAGRAM (05/06/2013 14:00 EDT) WBC 8.43 4.0 - 12.4 K/cmm [facility] RBC 4.34 3.86 - 5.04 M/cmm [facility] Hemoglobin 13.3 11.6 - 15.2 gm/dl [facility] HCT 39.8 34.9 - 44.4 % [facility] MCV 92 81 - 98 fl [facility] MCH 30.7 26.7 - 33.3 pg [facility] MCHC 33.4 32.1 - 35.9 gm/dl [facility] PLT 285 141 - 320 K/cmm [facility] RDW-CV 12.6 11.7 - 14.6 % [facility] 05/06/2013 14:0 0 EDT 05/06/2013 14:40 EDT Yovana Callejas MD HEMATOLOGY & PF4 ORDERABLES [facility] [address] [place] [address] * (ABNORMAL) COMPREHENSIVE METABOLIC PANEL (CMP) (05/06/2013 14:00 EDT) Potassium 4.2 3.5 - 5.0 mEq/L [facility] Sodium 147(H) 136 - 145 mEq/L [facility] Chloride 105 96 - 110 mEq/L [facility] CO2 29 24 - 32 mEq/L [facility] Total Alkaline Phosphatase 73 38 - 126 U/L [facility] Bilirubin, Total 0.8 0.2 - 1.3 mg/dl [facility] AST 18 15 - 46 U/L [facility] ALT 33 9 - 52 U/L [facility] Albumin 4.9 3.4 - 4.9 g/dl [facility] Total Protein 7.7 6.5 - 8.3 g/dl [facility] Creatinine 0.67 0.52 - 1.04 mg/dl [facility] GFR, Calculated >60 >60 ml/min/1.7 3m2 [facility] BUN 24 10 - 26 mg/dl [facility] Calcium 10.2 8.5 - 10.5 mg/dl [facility] Calculated Calcium 9.7 8.5 - 10.5 mg/dl [facility] Glucose, Serum 89 70 - 100 mg/dl [facility] Fasting? Unknown [facility] Blood specimen (specimen) 05/06/2013 14:00 EDT 05/06/2013 14:40 EDT Yovana Callejas MD CHEMISTRY & BLOO D GAS ORDERABLES [facility] [address] [place] [address] documented in this encounter Visit Diagnoses Diagnosis Arthropathy Arthropathy, unspecified, site unspecified Encounter for long-term (current) use of other medications Hypercoagulable state ([facility]) Primary hypercoagulable state documented in this encounter Care Teams Police Officer Relationship Specialty Start Date End Date Remedios Mehta MD [address] [place] [phone] PCP - General 02/19/09 01/04/15 documented as of this encounter
--- OUTSIDE RECORDS SUMMARY | 2024-06-24 02:19 | XMS_ITS | Encounter Summary ---
Author Organization [facility] Address [address] [place] [address] Care Team Providers Care Coffee Grower Name Role Phone Remedios Mehta MD Primary Care Provider [phone] [phone] Reason for Visit * Reason Onset Date Comments Paperwork request 03/06/2013 Encounter Details Date Type Department Care Team (Late st Contact Info) Description 03/06/[address] [address] Remedios Mehta MD [address] [place] [phone] Paperwork request Social History Tobacco Use [...] Miscellaneous Notes * Telephone Encounter - Tessa Spears 03/06/2013 1638 EDT Patient dropped off paperwork for disabled parking placard application Placed in providers CCA's folder. documented in this encounter Plan of Treatment Not on file documented as of this encounter Visit Diagnoses Not on filedocumented in this encounter Care Teams Coffee Grower Relationship Specialty Start Date End Date Remedios Mehta MD [address] [place] [phone] PCP - General 02/19/09 01/04/15 documented as of this encounter
--- OUTSIDE RECORDS SUMMARY | 2024-06-24 02:19 | XMS_ITS | Encounter Summary ---
Author Organization [facility] Address [address] [place] [address] Care Team Providers Care Insulating Machine Operator Name Role Phone Remedios Mehta MD Primary Care Provider [phone] [phone] Encounter Details Date Type Department Care Team (Late st Contact Info) Description 05/06/2013 Results Only [facility] Rheumatology & Immunology - Main [place] [address] [place], [place] [id number] Yovana Callejas MD [address] [place] [address] [address] [place] [phone] Social History Tobacco Use Types Packs/Day Years [...] Procedure Name Priority Date/Time Associated Diagnosis Comments MULTIPLE DOC ORDERS Routine 05/06/2013 1 4:00 EDT PTT Routine 05/06/2013 14:00 EDT PROTIME Routine 05/06/2013 14:00 EDT BILIRUBIN DIRECT/INDIRECT Routine 05/06/2013 14:00 EDT documented in this encounter Results * PTT (05/06/2013 14:00 EDT) PTT 33 26 - 37 secs [facility] Comment:Therapeutic Heparin range: 65-100 seconds 05/06/2013 14:0 0 EDT 05/06/2013 14:40 EDT Yovana Callejas MD HEMATOLOGY & PF4 ORDERABLES Performing Organization Address [facility] de Phone Number [facility] [address] [place] [address] * PROTIME (05/06/2013 14:00 EDT) Pro Time 11.4 9.5 - 13.1 secs [facility] I.N.R. 1.0 0.9 - 1.1 Ratio [facility] Comment: Moderate Intensity Coumadin INR = 2.0-3.0 Adjustments in anticoagulant therapy dose should be based upon the INR and NOT the Pro Time. 05/06/2013 14:0 0 EDT 05/06/2013 14:40 EDT Yovana Callejas MD HEMATOLOGY & PF4 ORDERABLES Performing Organization Address [facility] Co de Phone Number [facility] [address] [place] [address] * BILIRUBIN DIRECT/INDIRECT (05/06/2013 14:00 EDT) Conjugated Bilirubin 0.0 0.0 - 0.3 mg/dl [facility] Unconjugated Bilirubin 0.4 0.1 - 1.1 mg/dl [facility] 05/06/2013 14:0 0 EDT 05/06/2013 14:40 EDT Yovana Callejas MD CHEMISTRY & BLOO D GAS ORDERABLES Performing Organization Address [facility] Co de Phone Number [facility] [address] [place] [address] * MULTIPLE DOC ORDERS (05/06/2013 14:00 EDT) Multiple Doc Orders This report contains lab results ordered [facility] Comment: by another provider which were collected and processed simultaneously with the orders you requested. If you have any questions, please call Customer Service at [phone]. 05/06/2013 14:0 0 EDT 05/06/2013 14:40 EDT Yovana Callejas MD CHEMISTRY & BLOO D GAS ORDERABLES Performing Organization Address [facility] Co de Phone Number [facility] [address] [place] [address] documented in this encounter Visit Diagnoses Not on filedocumented in this encounter Care Teams Insulating Machine Operator Relationship Specialty Start Date End Date Remedios Mehta MD [address] [place] [phone] PCP - General 02/19/09 01/04/15 documented as of this encounter
--- OUTSIDE RECORDS SUMMARY | 2024-06-24 02:19 | XMS_ITS | Encounter Summary ---
Author Organization [facility] Address [address] [place] [address] Care Team Providers Care Residential Recycle Driver Name Role Phone Remedios Mehta MD Primary Care Provider [phone] [phone] Encounter Details Date Type Department Care Team (Late st Contact Info) Description 04/23/2013 Documentation Visit [facility] Rehabilitation Therapy - Medical Office Building [address] [place] [phone] Nathalia Miranda, PT [address] [place] [address] Social History Tobacco Use Types Packs/Day Years [...] as of this encounter Progress Notes * Nathalia Miranda - 04/23/2013 0825 EDT Opened in error documented in this encounter Plan of Treatment Not on file documented as of this encounter Visit Diagnoses Not on filedocumented in this encounter Care Teams Residential Recycle Driver Relationship Specialty Start Date End Date Remedios Mehta MD [address] [place] [phone] PCP - General 02/19/09 01/04/15 documented as of this encounter
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
--- OUTSIDE RECORDS SUMMARY | 2024-06-24 02:19 | XMS_ITS | Encounter Summary ---
Author Organization [facility] Address [address] [place] [address] Care Team Providers Care Divinity Teacher Name Role Phone Remedios Mehta MD Primary Care Provider [phone] [phone] Reason for Visit * Reason Onset Date Comments Medications Refill 05/14/2013 Encounter Details Date Type Department Care Team (Late st Contact Info) Description 05/14/[address] [address] Remedios Mehta MD [address] [place] [phone] Medications Refill Social History Tobacco Use [...] encounter Miscellaneous Notes * Telephone Encounter - Papito Weathersah - 05/16/2013 0858 EDT Spoke to pharmacy. They have no record of calling for this refill. * Telephone Encounter - Arlen Pollock - 05/14/2013 1354 EDT Medication(s) Requested: HYDROCODON ACETAMIN Pharmacy: [facility] Last Refill Date: 05.06 Last Visit Date: 04.05.13 Next Visit Date: 06/05/2013 Is patient out of medication? unknown Arlen Pollock 05/14/2013 13:54 documented in this encounter Plan of Treatment Not on file documented as of this encounter Visit Diagnoses Diagnosis Acute upper back pain- Primary Pain in thoracic spine Lower back pain Lumbago DJD (degenerative joint disease), cervical Degeneration of cervical intervertebral disc documented in this encounter Care Teams Divinity Teacher Relationship Specialty Start Date End Date Remedios Mehta MD [address] [place] [phone] PCP - General 02/19/09 01/04/15 documented as of this encounter
--- OUTSIDE RECORDS SUMMARY | 2024-06-24 02:19 | XMS_ITS | Encounter Summary ---
Author Organization [facility] Address [address] [place] [address] Care Team Providers Care Barrel Bridge Assembler Name Role Phone Remedios Mehta MD Primary Care Provider [phone] Reason for Visit * Reason Comments Results mri results of back Encounter Details Date Type Department Care Team (Late st Contact Info) Description 04/29/2013 8:40 EDT Office Visit [facility] [address] [place] [address] Yovana Callejas MD [address] [place] [address] [phone] Chronic low back pain (Primary Dx); Fibromyalgia Social History Tobacco Use Types Packs/Day [...] Sign Reading Time Taken Comments Blood Pressure 118/72 04/29/2013 0852 EDT Pulse 70 04/29/2013 0852 EDT Temperature - - Respiratory Rate - - Oxygen Saturation - - Inhaled Oxygen Concentration - - Weight - - Height - - Body Mass Index - - documented in this encounter Functional Status Cognitive Status Response Date of Assessm ent Because of a physical, menta l, or emotional condition, do you have serious difficulty concentrating, remembering, or making decisions? (5 years old or older) Yes 04/15/2010 documented as of this encounter Patient Instructions * Patient Instructions* Yovana Callejas MD - 04/29/2013 9:09 EDT No further Enbrel Symptoms most consistent with osteoarthritis and fibromyalgia as well as other current medical issues See you in about 4-5 months documented in this encounter Progress Notes * Yovana Callejas MD - 04/29/2013 0849 EDT Division of Rheumatology and Clinical Immunology Chief Complaint Patient presents with ??? Results mri results of back Here in follow up of fibromylagia and inflammatory arthritis. HPI: Feels terrible today. Tried Enbrel for about 4 months. Only a little better. Feels sore, increased pain, using a cane for walking, and reports that she has been having more hand pain. Has noticed herfinger nails are sore. Mentions increased am stiffness. Not sleeping well. Feels anxious. Also reports was bit by her dog about a month ago. Dog sunk a tooth into her right wrist region. She was seen at her PCP office and given an RX for antibiotics. Did not take the antibiotics becauseshe could not pay for them. Wound seems to have healed well though. Has more back problems, has been seen in spine clinic and had a recent MRI. Also having issues withuterine lining. May have to undergo surgery and reports that cancer cells were found in the uterine lining Scheduled for a D and C in 3 weeks or less. Current Outpatient Prescriptions Medication Sig Dispense Refill ??? meloxicam (MOBIC) 7.5 mg tablet Take 1 Tab by mouth daily. 30 Tab 2 ??? zafirlukast (ACCOLATE) 20 mg tablet TAKE [...] into the skin every 7 days. ??? polyethylene glycol (GLYCOLAX) 17 gram/dose powder Take 17 g by mouth daily. 1 Bottle 3 ??? omeprazole (PRILOSEC) 20 mg capsule Take 1 Cap by mouth 2 times daily. 60 Cap 2 ??? CLARITIN 10 mg tablet TAKE ONE [...] (FLONASE) 50 mcg/actuation nasal spray Instill 1 [place] into both nostrils daily. 1 Bottle 5 ??? budesonide-formoterol HFA (SYMBICORT) 80-4.5 mcg/actuation HFAA inhaler Inhale 2 Puffs as directed 2 times daily. 1 Inhaler 5 ??? metoprolol (LOPRESSOR) 25 mg tablet [...] Take 1 Tab by mouth daily. Allergies include: Latex, natural rubber; Adhesive; Aspirin; Chocolate flavor; Codeine; Egg derived; Nsaids (non-steroidal anti-inflammatory drug); Other - see comments; Penicillins; Sulfa (sulfonamide antibiotics); Soy; and Wheat containing prod Past Medical History Diagnosis Date ??? Fibromyalgia [...] 04/15/2010 Right TKR ([place]) ??? Colonoscopy 2011 REVIEW OF SYSTEMS: Yes No Yes No Fever x Joint pain x Fatigue x Muscle pain x Night sweats x Morning stiffness x Weight change x If yes, duration Gain or loss? Numbness/tingling x Eye discomfort x Headaches x Mouth/Nose sores x Muscle weakness x Chest pain x Burning on urination x Palpitations x Dark/bloody urine x Shortness of breath x Frequent urination x Cough x Trouble sleeping x Nausea/vomiting x Change in mood x Stomach pains/cramps x Nervous or anxious x Blood in stools x Sad or depressed x Diarrhea x Skin rash/changes x Constipation x Sun induced rash x Itching x Hand/Foot color change w/cold x Hair Loss x PHYSICAL EXAMINATION: Blood pressure 118/72, pulse 70, last menstrual period 03/09/2010. Patient is pleasant and well appearing appears to be in pain. Friend accompanies her to appointmenttoday. Eyes: no iritis, no inflammation. ENT: No oral ulcers, dentition is good. No active dental infection. No nasal discharge. NECK: normal extension and lateral rotation without pain. NO lymphadenopathy or grossly enlarged thyroid CHEST: Clear to auscultation, no wheezes, rales. Normal respiratory excursion with no splinting. CARDIOVASCULAR: Regular rate and rhythm. There is no peripheral edema. Warm finger tips and toes. No digital ulcers. SKIN: Normal skin turgor. No psoriasis. No nail fold pitting. No nodules. No rashes. Nail riding without nail pitting. ABDOMEN: soft, non tender, non distended. Normal bowel sounds. JOINTS: Hands: Degenerative changes over the DIPS, Hebreden's nodes. No synovitis and normal ROM in the MCPs, Wrists are normal Elbows: normal ROM and no bursitis or tohpi Shoulders: normal ROM, no impingement, no subacromial bursitis Hips: normal ROM with internal and external rotation Knees: Normal ROM, no joint line tenderness; no effusion or warmth. Normal patellar motion. Pes anserine bursa not tender Ankles: normal ROM, no effusion Feet: 1 st MTP bunion deformities. Normal MTPS with no subluxation. Tender points: present anterior chest, back, neck, forearms. NEUROLOGICAL Normal gait. Cane which she is using in her right hand. 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 Well groomed. MRI L-spine results Impression: 1. No evidence of focal herniation or central canal stenosis in the lumbar spine and noforaminal impingement is identified. 2. Probable fibroid uterus. Diagnosis / Assessment: Inflammatory arthritis: no improvement in Enbrel, this suggests the bulk of her pain is due to osteoarthritis, fibromyalgia and her degenerative spine arthritis. NO indication to continue Enbrel given significant risk of infection/adverse events. PLAN Focus should be on activity and depression management for her Fibromyalgia pain (Cymbalta and PT)/treatment of back pain (as per current she is well managed in Pain clinic by Dr Tubbs), narcotics onlyfrom one provider (currently Dr Strong, therefore patient advised that our office STOP ENBREL Patient was advised to contact me if there are any problems. Otherwise follow up as scheduled. NO barriers to learning identified. Yovana Callejas MD 04/29/2013 10:42 documented in this encounter Plan of Treatment Not on file documented as of this encounter Visit Diagnoses Diagnosis Chronic low back pain- Primary Lumbago Fibromyalgia Mylagia and myositis, unspecified documented in this encounter Discontinued Medications Medication Sig Discontinue Reason Start Date End Da te doxycycline (VIBRA-TABS) 100 mg tablet Take 1 Tab by mouth 2 times daily. Therapy completed 04/05/2013 04/29/2013 hydroxychloroquine (PLAQUENIL) 200 mg tabletIndications:Arth ropathy,Arthritis Take 1 Tab by mouth 2 times daily. Therapy completed 01/30/2013 04/29/2013 lactobacillus rham. GG-inulin 10 billion cell -200 mg CpSPIndications:GERD (gastroesophageal reflux disease),Bloating,IBS (irritable bowel syndrome),Fibromyalgia ,Risk for falls,Asthma,Obesity, Class II, BMI 35-39.9, with comorbidity,Hyperglyce capo Take 1 Applicator by mouth daily. Therapy completed 01/02/2013 04/29/2013 lidocaine 5 % (LIDODERM) 5 %(700 mg/patch) patchIndications:Acute upper back pain,Lower back pain,DJD (degenerative joint disease), cervical Place 1 Patch onto the skin every 12 hours. Therapy completed 03/04/2013 04/29/2013 methotrexate 2.5 mg tabletIndications:Arth ritis Take 6 Tabs by mouth once a week. Therapy completed 06/04/2012 04/29/2013 documented as of this encounter Care Teams Barrel Bridge Assembler Relationship Specialty Start Date End Date Remedios Mehta MD [address] [place] [phone] PCP - General 02/19/09 01/04/15 documented as of this encounter
--- OUTSIDE RECORDS SUMMARY | 2024-06-24 02:19 | XMS_ITS | Encounter Summary ---
Author Organization [facility] Address [address] [place] [address] Care Team Providers Care Windmill Technician Name Role Phone Remedios Mehta MD Primary Care Provider [phone] Reason for Visit * Reason Onset Date Comments Pain 02/08/2013 Encounter Details Date Type Department Care Team (Late st Contact Info) Description 02/08/2013 Telephone [facility] Interventional Pain [address] [place], [place] [id number] Abundio Tubbs, DO [address] [facility] [address] [place], [place] [address] Pain Social History Tobacco Use Types Packs/Day [...] Miscellaneous Notes * Telephone Encounter - Ivy Rayo RN - 02/08/2013 1500 EDT Returned call to patient, told her aware that she has called and he is reviewing her chart,he has left clinic to go to operating room this afternoon. Discussed her medications, use of heat/cold therapies, rest and massage or calling her pcp. Will contact her when hear back from * Telephone Encounter - Leonora Bragg - 02/08/2013 1438 EDT She in a lot of pain and would like to talk to a Nurse. documented in this encounter Plan of Treatment Not on file documented as of this encounter Visit Diagnoses Not on filedocumented in this encounter Care Teams Windmill Technician Relationship Specialty Start Date End Date Remedios Mehta MD [address] [place] [phone] PCP - General 02/19/09 01/04/15 documented as of this encounter
--- OUTSIDE RECORDS SUMMARY | 2024-06-24 02:19 | XMS_ITS | Encounter Summary ---
Author Organization [facility] Address [address] [place] [address] Care Team Providers Care Welder Apprentice Arc Name Role Phone Remedios Mehta MD Primary Care Provider [phone] Reason for Visit * Reason Comments Animal Bite Dog bite, right wris t. Broke skin and patient states it bled a bit. Bitten by own dog, dog is up to date on all shots. Tdap UTD ([id number]) Encounter Details Date Type Department Care Team (Late st Contact Info) Description 04/05/2013 10:30 EDT Office Visit [facility] Family Medicine [address] [address] Madhu Gomes MD [address] [place] [phone] Dog bite, hand (Primary Dx) Social History Tobacco Use Types [...] Sign Reading Time Taken Comments Blood Pressure 100/70 04/05/2013 1018 EDT Pulse 60 04/05/2013 1018 EDT Temperature 36.2 ??C (97.2 ??F) 04/05/2013 1018 EDT Respiratory Rate 12 04/05/2013 1018 EDT Oxygen Saturation - - Inhaled Oxygen Concentration - - Weight - - Height 152.4 cm (5') 04/05/2013 1018 EDT Body Mass Index - - documented in [...] Tab by mouth 2 times daily for 5 days. 10 Tab 0 04/05/2013 04/10/2013 doxycycline (VIBRA-TABS) 100 mg tablet Take 1 Tab by mouth 2 times daily. 14 Tab 0 04/05/2013 04/29/2013 documented in this encounter Progress Notes * Madhu Gomes MD - 04/05/2013 192 EDT Images from the original note were not included. Subjective: Patient ID: Cherelle Husain is an 52 y.o. female. Chief Complaint Patient presents with ??? Animal Bite Dog bite, right wrist. Broke skin and patient states it bled a bit. Bitten by own dog, dog is up todate on all shots. Tdap UTD ([id number]) HPI The patient reports that she was bit by her own dog on the right hand and palmar wrist area about 12:30 a.m. today. Since then, she has noticed pain proximal to the bite and swelling in the heel of her hand. There has been no redness, fever or chills. She has multiple allergies as noted. She states that her dog does not see well and inadvertently bit her. She has verified that the dog's shots are up to date, including rabies vaccine. She is right-handed. Past medical history is reviewed. The area has been previously cleansed with soap and water and there has been no purulent drainage. Patient Active Problem List Diagnoses ??? Myalgia [...] (FLONASE) 50 mcg/actuation nasal spray Instill 1 [place] into both nostrils daily. 1 Bottle 5 [...] occasional ROS - See HPI Objective: BP 100/70 Pulse 60 Temp(Src) 36.2 ??C (97.2 ??F) (Oral) Resp 12 Ht 152.4 cm (60) LMP 03/09/2010 Physical Exam Constitutional: She appears well-nourished. No distress. Musculoskeletal: She exhibits tenderness. She exhibits no edema. Arms: Assessment: dog bite < 24 hours. Near hand with risk for tenosynovitis or deep infection. Suspect current swelling related to tissue trauma itself. Alternative antibiotics chosen due to allergies. Precautionsfor early recheck if worsening. Patient indicated his/her understanding and agreement with the assessment and plan of care. Plan: Cherelle was seen today for animal bite. Diagnoses and associated orders for this visit: Dog bite, hand Other Orders - doxycycline (VIBRA-TABS) 100 mg tablet; Take 1 Tab by mouth 2 times daily. - metroNIDAZOLE (FLAGYL) 500 mg tablet; Take 1 Tab by mouth 2 times daily for 5 days. documented in this encounter Plan of Treatment Not on file documented as of this encounter Visit Diagnoses Diagnosis Dog bite, hand- Primary Open wound of hand except finger(s) alone, without mention of complication documented in this encounter Care Teams Welder Apprentice Arc Relationship Specialty Start Date End Date Remedios Mehta MD [address] [place] [phone] PCP - General 02/19/09 01/04/15 documented as of this encounter
--- OUTSIDE RECORDS SUMMARY | 2024-06-24 02:19 | XMS_ITS | Encounter Summary ---
Author Organization [facility] Address [address] [place] [address] Care Team Providers Care Cooling Tower Operator Name Role Phone Remedios Mehta MD Primary Care Provider [phone] Reason for Visit * Reason Onset Date Comments Results 03/01/2013 Encounter Details Date Type Department Care Team (Late st Contact Info) Description 03/01/[address] [address] Remedios Mehta MD [address] [place] [phone] Results Social History Tobacco Use Types Packs/Day [...] * Telephone Encounter - Brook Weathers - 03/01/2013 1343 EDT Cherelle states that she is returning a call to some one concerning her blood work results. I do not see a message in her chart. Call was made after 6:30 last night per date stamp in her phone. documented in this encounter Plan of Treatment Not on file documented as of this encounter Visit Diagnoses Not on filedocumented in this encounter Care Teams Cooling Tower Operator Relationship Specialty Start Date End Date Remedios Mehta MD [address] [place] [phone] PCP - General 02/19/09 01/04/15 documented as of this encounter
--- OUTSIDE RECORDS SUMMARY | 2024-06-24 02:19 | XMS_ITS | Encounter Summary ---
Author Organization [facility] Address [address] [place] [address] Care Team Providers Care Permastone Mechanic Name Role Phone Remedios Mehta MD Primary Care Provider [phone] [phone] Reason for Visit * Reason Onset Date Comments Pain 02/12/2013 Returning Call 02/12/2013 Encounter Details Date Type Department Care Team (Late st Contact Info) Description 02/12/2013 Telephone [facility] Interventional Pain [address] [place] [address] Abundio Cormier, DO [address] [place] [address] [address] [place] [address] Pain; Returning Call Social History Tobacco Use Types Packs/Day Years [...] Telephone Encounter - Samra Byrne RN - 02/13/2013 1012 EDT RN returned call to pt. Left a message to call back to discuss further. * Telephone Encounter - Bozena Bernard - 02/13/2013 0949 EDT Patient is returning call. * Telephone Encounter - Delia Lama RN - 02/12/2013 1620 EDT Called pt. And told her I had just talked with Dr. Cormier about the next plan. He is currently with apt. But knows I sent her encounter to him and he will deal with it tomorrow. * Telephone Encounter - Katelyn Da Silva - 02/12/2013 1614 EDT IN A LOT OF PAIN AND WANTS TO TALK TO DR CORMIER. documented in this encounter Plan of Treatment Not on file documented as of this encounter Visit Diagnoses Not on filedocumented in this encounter Care Teams Permastone Mechanic Relationship Specialty Start Date End Date Remedios Mehta MD [address] [place] [phone] PCP - General 02/19/09 01/04/15 documented as of this encounter
--- OUTSIDE RECORDS SUMMARY | 2024-06-24 02:19 | XMS_ITS | Encounter Summary ---
Author Organization [facility] Address [address] [place] [address] Care Team Providers Care Physical Sciences Professor Name Role Phone Keshawn Mehta MD Primary Care Provider [phone] Encounter Details Date Type Department Care Team (Latest Contact Info) Description 05/13/2013 9:41 EDT - 05/13/2013 15:45 EDT Hospital Encounter [facility] [address] [place] [address] Antoinette Ambrose MD [address] [place] [address] Discharge Disposition: Home or Self [...] Sign Reading Time Taken Comments Blood Pressure 117/81 05/13/2013 1500 EDT Pulse - - Temperature 36.2 ??C (97.2 ??F) 05/13/2013 1500 EDT Respiratory Rate 14 05/13/2013 1500 EDT Oxygen Saturation 95% 05/13/2013 1500 EDT Inhaled Oxygen Concentration - - Weight 98.4 kg (217 lb) 05/10/2013 1320 EDT Height 152.4 cm (5') 05/10/2013 1320 EDT Body Mass Index 42.38 05/10/2013 1320 EDT documented in this encounter Functional Status Cognitive Status Response Date of Assessm ent Because of a physical, menta l, or emotional condition, do you have serious difficulty concentrating, remembering, or making decisions? (5 years old or older) Yes 04/15/2010 documented as of this encounter Discharge Instructions * Discharge Instructions* Eliza Dennison MD - 05/13/2013 12:54 EDT Diet: Regular Activity: Nothing in vagina (no tampons, douches, or intercourse for 2 weeks) Bathing: No bath or immersion for 2 weeks Pending Results: Surgical pathology Symptoms to Call Your Doctor About: Dizziness or fainting Decreased urine output Fever greater than 100.4 or chills Increased or new pain Nausea or vomiting Pain unrelieved by medication Signs of infection such as pain, redness, swelling or drainage at procedure or wound site Heavy vaginal bleeding (soaking through more than 1 pad in 2 hours) Foul-smelling vaginal discharge Appointments: See Dr. Ambrose in 2-4 weeks. Please call for an appointment if one is not already scheduled. Eliza Dennison MD 05/13/2013 12:53 documented in this encounter Medications at Time [...] hours as needed for Pain. 04/20/2010 06/14/2013 budesonide-formotero l HFA (SYMBICORT) 80-4.5 mcg/actuation HFAA inhalerIndications:A sthma,Hyperlipidemia ,Need for Tdap vaccination,Abdomina l discomfort,IBS (irritable bowel syndrome),GERD (gastroesophageal reflux disease) Inhale 2 Puffs as directed 2 times daily. 1 Inhaler 5 07/16/2012 06/05/2013 CLARITIN 10 mg tablet TAKE ONE TABLET BY MOUTH EVERY DAY 90 Each 1 12/25/2012 08/19/2013 duloxetine (CYMBALTA) 60 mg capsuleIndications:M yalgia and myositis Take 1 Cap by mouth daily. 30 Cap 11 10/11/2012 10/15/2013 enoxaparin (LOVENOX) 60 mg/0.6 mL injection Inject 60 mg into the skin daily. START 8-12 hours AFTER 05/13/13 procedure 10 Syringe 0 05/13/2013 05/27/2013 fluocinonide (LIDEX) 0.05 % cream Apply to affect area(s) as directed. 60 g 3 03/23/2012 06/05/2013 fluticasone (FLONASE) 50 mcg/actuation nasal sprayIndications:Ast hma,Hyperlipidemia,N eed for Tdap vaccination,Abdomina l discomfort,IBS (irritable bowel syndrome),GERD (gastroesophageal reflux disease) Instill 1 [place] into both nostrils daily. 1 Bottle 5 07/16/2012 06/05/2013 HYDROcodone-acetamin ophen (NORCO) 10-325 mg per tabletIndications:Ac [place] upper back pain,Lower back pain,DJD (degenerative joint disease), cervical Take 1 Tab by mouth every 6 hours as needed for Pain for 28 days. DO NOT FILL PRIOR TO START DATE 112 Tab 0 05/06/2013 06/14/2013 ketoconazole (NIZORAL) 2 % creamIndications:Jace h Apply topically daily. Apply to affect area(s) as directed. 1 Tube 1 02/17/2010 04/18/2021 lovastatin (MEVACOR) 10 mg tabletIndications:Hy perlipidemia,Asthma, Need for Tdap vaccination,Abdomina l discomfort,IBS (irritable bowel syndrome),GERD (gastroesophageal reflux disease) Take 1 Tab by mouth daily. 90 Tab 4 08/22/2012 07/12/2013 meloxicam (MOBIC) 7.5 mg tablet Take 1 Tab by mouth daily. 30 Tab 2 04/01/2013 07/04/2013 metoprolol (LOPRESSOR) 25 mg tabletIndications:Hy pertension Take 1 Tab by mouth 2 times daily. 180 Tab 4 04/04/2012 06/05/2013 omeprazole (PRILOSEC) 20 mg capsuleIndications:G ERD (gastroesophageal reflux disease),Cough Take 1 Cap by mouth 2 times daily. 60 Cap 2 01/31/2013 06/05/2013 polyethylene glycol (GLYCOLAX) 17 gram/dose powderIndications:Co nstipation Take 17 g by mouth daily. 1 Bottle 3 03/04/2013 09/13/2013 traZODone (DESYREL) 100 mg tablet TAKE ONE TO TWO TABLETS BY MOUTH AT BEDTIME NEEDED FOR SLEEP 56 Tab 1 05/06/2013 09/13/2013 zafirlukast (ACCOLATE) 20 mg tablet TAKE ONE TABLET BY MOUTH TWICE A DAY 180 Tab 0 03/27/2013 06/05/2013 documented as of this encounter Discharge Disposition Disposition Code Departure Means Destination Home or Self Care documented in this encounter Progress Notes * Mitzi Phillips RN - 05/13/2013 1356 EDT 1310 assumed care, pt awake, complaining of pain, medicated by relief nurse 1515 OOB, walking to BR, able to void * Ellen Villagran RN - 05/10/2013 1317 EDT Erika Husain has been instructed as follows regarding medication administration for the day of the scheduled procedure. Date of Surgery: 05/13/13 Instructions for Taking Medications Day of Surgery Medication Last Dose Hold DOS Take DOS traZODone (DESYREL) 100 mg tablet yes HYDROcodone-acetaminophen (NORCO) 10-325 mg per tablet Yes prn enoxaparin (LOVENOX) 60 mg/0.6 mL injection Post op meloxicam (MOBIC) 7.5 mg tablet 7/9/13 yes zafirlukast (ACCOLATE) 20 mg tablet yes polyethylene glycol (GLYCOLAX) 17 gram/dose powder yes omeprazole (PRILOSEC) 20 mg capsule yes CLARITIN 10 mg tablet yes duloxetine (CYMBALTA) 60 mg capsule yes CALCIUM CARBONATE/VITAMIN D3 (CALCIUM WITH VITAMIN D ORAL) yes albuterol (PROVENTIL) 2.5 mg /3 mL (0.083 %) nebulizer solution prn albuterol (PROVENTIL HFA, VENTOLIN HFA) 90 mcg/actuation inhaler Prn/bring dos lovastatin (MEVACOR) 10 mg tablet yes fluticasone (FLONASE) 50 mcg/actuation nasal spray yes budesonide-formoterol HFA (SYMBICORT) 80-4.5 mcg/actuation HFAA inhaler yes metoprolol (LOPRESSOR) 25 mg tablet yes fluocinonide (LIDEX) 0.05 % cream Yes prn acetaminophen (TYLENOL) 650 mg tablet yes prn ketoconazole (NIZORAL) 2 % cream Yes prn lubiprostone (AMITIZA) 24 mcg capsule yes MULTIVITAMINS (MULTIVITAMIN ORAL) 05/10/13 yes Other medication instructions: Stop NSAIDS and Aspirin products 10 days prior to surgery and Stop supplements 7 days prior to surgery documented in this encounter H&P Notes * Eliza Dennison MD - 05/13/2013 1122 EDT The preoperative history and physical which was performed within 30 days of this procedure has been reviewed and the clinically appropriate elements of the physical examination have been repeated. There are no changes to the documented history and physical or if so such changes are documented below Eliza Dennison MD 05/13/2013 11:22 Source Note - Minoo Messer NP - 05/06/2013 13:25 EDT Thrombosis & Hemostasis Program (THP) Follow Up Visit Date of Service: 05/06/2013 Reason for Visit: anticoagulation recommendations for upcoming FINANCIAL SERVICES CONSULTANT procedure in patient with known hypercoagulability Problem [...] 110, factor V Leiden negative, prothrombin gene 14124N negative, PTT 32. Protein S 118,?? b.?? [...] Disorder ??? Chronic post-traumatic stress disorder HPI: Erika Husain is a 53-year-old female with history of hypercoagulability per the Problem List above. She is not managed on long-term anticoagulation, however, prophylactic anticoagulation is recommended for invasive procedures, prolonged immobilization, or hospitalization. She is scheduled for a hysteroscopy, dilation and curettage on May [address] Antoinette Ambrose, and is in need of perioperative anticoagulation recommendations. Per patient, she has been very stressed because her 86-year-old father has been in the MICU in [place] for several weeks with serious cardiac issues. [...] leg due to arthritis. She isundergoing a FINANCIAL SERVICES CONSULTANT procedure due to recurrence of a prior [...] biopsy on May [address] Antoinette Ambrose and will need post procedure thromboprophylaxis. Plan: 1. DVT Prophylaxis for FINANCIAL SERVICES CONSULTANT procedure (hysteroscopy with D+C) scheduled May [address] Antoinette Ambrose: a. Recommend Lovenox 60 mg SC once daily x 10 days post FINANCIAL SERVICES CONSULTANT procedure. Patient has been instructed to take [...] RICARDO Jensen Thrombosis and Hemostasis Program CC: Keshawn Mejia MD documented in this encounter Procedure Notes * ANIMAL HUSBANDRY TEACHER, SCAN 2 - 05/16/2013 1324 EDTAssociated Order(s): ECG REPORT - SCANNED documented in this encounter Nursing Notes * ANIMAL HUSBANDRY TEACHER, SCAN - 05/16/2013 1348 EDT documented in this encounter OR Notes * OR PreOp - ANIMAL HUSBANDRY TEACHER, SCAN 2 - 05/20/2013 1248 EDT * OR PreOp - ANIMAL HUSBANDRY TEACHER, SCAN 2 - 05/16/2013 1324 EDT * OR Surgeon - Antoinette Ambrose MD - 05/14/2013 1644 EDT OPERATIVE REPORT SERVICE DATE: 05/13/2013 PREOPERATIVE DIAGNOSIS: Postmenopausal bleeding. POSTOPERATIVE DIAGNOSIS: Postmenopausal bleeding with polypoid tissue. SURGEON: Antoinette Ambrose MD REINFORCED STEEL PLACING SUPERVISOR: Eliza Dennison MD PROCEDURE: Operative hysteroscopy with polypectomy. Fractionated D and C. ANESTHESIA: General LMA and paracervical. FINDINGS: Exam under anesthesia revealed a small anteverted uterus that sounded to 9 cm. Hysteroscopic findings revealed the base of the previously removed polyp at 6 o'clock. There was polypoid tissue at 11 o'clock and 3 o'clock that appeared to be connected together. The base of the polyp and allthe polypoid tissue was removed using the resectoscope. ESTIMATED BLOOD LOSS: Minimal. FLUIDS: 1000 mL of LR. URINE OUTPUT: 10 mL. SPECIMENS: 1. Endocervical curettings. 2. Base of polyp at 6 o'clock. 3. Polypoid tissue at 3 o'clock. 4. Polypoid tissue at 11 o'clock. 5. Endometrial curettings. FOREIGN BODIES RETAINED: None. COMPLICATIONS: None. CONDITION: Good. DISPOSITION: PACU. INDICATIONS: This 53-year-old woman who had a previous polypectomy in August 2012, which revealedsimple hyperplasia only of the polyp. She has since then developed minimal postmenopausal bleeding.Ultrasound revealed a slightly thickened endometrium. The patient is intolerant to any office procedures and presented for diagnostic, possible operative hysteroscopy today. NARRATIVE: After informed consent was obtained, the patient was brought to the operating room wheregeneral LMA anesthesia was induced without difficulty. She was then placed in dorsal lithotomy position using Chente stirrups in what was felt to be a neurologically neutral position. The perineum andvagina were prepped and draped in the usual sterile fashion. The cervix was grasped with a single-tooth tenaculum. The cervix was dilated to a #7 Hegar dilator. The operative hysteroscope was then introduced using normal saline as a distention medium and the above findings were seen. The cavity wasotherwise atrophic and both ostia were seen. The cervix was then dilated to a #10 Sheri dilator. The operative resectoscope was then inserted into the uterus using glycine as the distention medium. The base of the polyp at 6 o'clock was removedwith the loop electrode. The polypoid tissue at 3 o'clock and 11 o'clock were each removed separately and sent to pathology separately. At this point, all of the polypoid tissue had been removed fromthe uterus. Please note, prior to dilating the cervix, endocervical curettings were collected. After the resectoscope was removed, endometrial curettings were collected. At this point, the procedure was ended. Aparacervical block using 12 mL of 0.25% Marcaine was placed. All instruments were removed from the vagina and the patient was taken out of lithotomy position. She emerged from general LMA without anycomplications and she was brought to the PACU in satisfactory condition. Unless otherwise noted, there were no complications, no blood loss, no cultures obtained, no specimens removed, and no drains retained. Antoinette Ambrose MD 03 50 PM / Antoinette Ambrose MD sn Confirmation: [id number] Dictation ID: [id number] * Anesthesia Procedure Notes - ANIMAL HUSBANDRY TEACHER, SCAN 2 - 05/13/2013 1307 EDT * Anesthesia Preprocedure Evaluation - ANIMAL HUSBANDRY TEACHER, SCAN 2 - 05/13/2013 1138 EDT documented in this encounter Miscellaneous Notes * Scanned Note-Null - ANIMAL HUSBANDRY TEACHER, SCAN 2 - 05/16/2013 1324 EDT * Scanned Note-Null - ANIMAL HUSBANDRY TEACHER, SCAN 2 - 05/16/2013 1324 EDT * Anesthesia Post-Eval - Félix Ashton MD - 05/13/2013 1508 EDT Post Anesthesia Evaluation Note Date of Service: 05/13/2013 Erika Husain, a 53 y.o. year old female has received General Anesthesia today. She has been evaluated, assessed and discharged from anesthesia care with stable cardiorespiratory function and alert mental status. The last set of recorded vital signs and pain rating were reviewed: Temp: 36.2 ??C (97.2 ??F) (05/13/13 1445), Heart Rate: 80 BPM (05/13/13 1500), BP: 117/81 mmHg (05/13/13 1500), Resp: 14 (05/13/13 1500), SpO2: 95 % (05/13/13 1500),Numeric Pain Level (Scale 1-10): 7 Erika Husain participated in this evaluation unless otherwise noted. Her pain, nausea and vomiting have been managed and her body temperature and fluid balance have been restored. Additional monitoring and assessment needs have been addressed. If present, any postoperative events are documented below. Félix Ashton MD 05/13/2013 15:09 * Brief Op Note - Antoinette Ambrose MD - 05/13/2013 1249 EDT Brief Operative Note Date: 05/13/2013 Attending: Antoinette Ambrose MD Leather Currier: Eliza Dennison MD Pre-op diagnosis: Post-menopausal bleeding Post-op diagnosis: same; endometrial polyps Procedure: Hysteroscopy, polypectomy with resectoscope, D&C Anesthesia: Gen LMA Findings: 1. Small, anteverted uterus. Sounded to 9 cm. 2. Base of previously removed polyp at 6:00. 3. Polypoid tissue at 11:00 and 3:00 that were connected together. Blood loss: minimal Fluids: 1000cc LR Urine output: 10cc Specimens: 1. ECC 2. Base of polyp, 6 o'clock 3. Polypoid tissue at 3 o'clock 4. Polypoid tissue at 11 o'clock 5. EMC Drains/Packs/Foreign object retained: none Complications: none Condition: good Disposition: PACU, then home See dictated operative report for more details documented in this encounter Plan of Treatment Not on file documented as of this encounter Procedures Procedure Name Priority Date/Time Associated Diagnosis Comments ECG REPORT - SCANNED 05/16/2013 13:24 EDT SURGICAL PATHOLOGY Routine 05/13/2013 14 :10 EDT GLUCOSE, GLUCOMETER Routine 05/13/2013 1 0:33 EDT documented in this encounter Results * ECG REPORT - SCANNED (05/16/2013 13:24 EDT) 05/16/2013 13:2 4 EDT Narrative 05/16/2013 13:51 EDT Procedure Note ANIMAL HUSBANDRY TEACHER, SCAN 2 - 05/16/2013 13:24 EDT Scan 2 Bus Analyst PROCEDURE/MINOR BRIANA GICAL ORDERABLES * SURGICAL PATHOLOGY (05/13/2013 14:10 EDT) Pathology Report: SURGICAL PATHOLOGY REPORT Reports generated via electronic interface contain original data; however they are lacking the format of the original report. Caution should be taken when reading/interpreting unformatted reports. Name: ? ERIKA HUSAIN Don ? Accession #: ? [id number] ? : ? 1960 (Age: 53) ??F ? Collect Date: ? 05/13/2013 ? Location: ? [facility] ? Receive Date: ? 05/13/2013 ? Provider: ANTOINETTE AMBROSE MD Copy to: KESHAWN MEJIA MD ? Final Pathologic Diagnosis: A. ENDOCERVIX, CURETTAGE: - ??Fragments of benign endo- and ectocervical tissue. - ??No cytologic atypia. B. ENDOMETRIUM, POLYP, 6 O'CLOCK, BIOPSY: - ??Proliferative endometrium with focal disordered proliferation. - ??Abundant smooth muscle consistent with vigorous curettage versus submucosal leiomyoma. - ??No cytologic atypia. C. ENDOMETRIUM, POLYP, 3 O'CLOCK, BIOPSY: - ??Hyperplastic polyp with focal atypical complex hyperplasia. D. ENDOMETRIUM, POLYP, 11 O'CLOCK, BIOPSY: - ??Atypical polypoid adenomyoma versus adenocarcinoma, endometroid type, FIGO grade I, arising within a polyp. See comment. E. ENDOMETRIUM, CURETTAGE: - ??Fragmented specimen with a single fragment of atypical complex hyperplasia. See comment. - ??No definitive carcinoma identified. Comment: The possible focus of endometrioid adenocarcinoma is best seen in specimen D, although specimen C shows similar features. In these two specimens, it appears to be confined to the polyp. Evaluation of specimen E is problematic due to marked fragmentation and crush artifact. Clinical Care Coordinator sections of this case were reviewed at the intradepartmental consultation conference. This case was discussed with Dr. Abmrose on 05/17/2013. Dr. Frazier 05/15/2013 11:53 AM Document reviewed and electronically signed by: EKATERINA BAUER MD Report ??Date: 05/17/2013 10:55 By the signature above, the attending physician certifies that he/she has personally conducted a gross and/or microscopic examination of the described specimens and rendered or confirmed the above diagnosis. Specimen(s) Received: A. ??ECC B. ??Base of polyp 6 o'clock C. ??Polyp 3 o'clock D. ??Polyp 11 o'clock E. ??[facility] Clinical History: Postmenopausal bleeding Gross Description: A. ? Received in normal saline labelled with proper patient identification (initials B, T) A. ECC is a 3.1 x 2.9 x 0.2 cm aggregate of red-brown hemorrhagic and clear mucinous material. ??The specimen is entirely submitted as A1 following filtration. B. ? Received in normal saline labelled with proper patient identification (initials B, T) B. base of polyp 6 o'clock are two monahan-pink, focally red-brown and hemorrhagic irregular soft tissue fragments measuring 0.7 x 0.6 x 0.3 cm and 0.8 x 0.6 x 0.4 cm. ??The specimens are entirely submitted as B1. C. ? Received in normal saline labelled with proper patient identification (initials B, T) C. polyp 3 o'clock is a pink-monahan, focally pink-red irregular soft tissue fragment measuring 0.7 x 0.5 x 0.3 cm. ??The specimen is entirely submitted as C1. D. ? Received in normal saline labelled with proper patient identification (initials B, T) D. polyp 11 o'clock is a pink-richards, focally pink-monahan irregular soft tissue fragment measuring 0.8 x 0.5 x 0.4 cm. ??The specimen is entirely submitted as D1. E. ? Received in normal saline labelled with proper patient identification (initials B, T) E. EMC is a 1.4 x 1.0 x 0.4 cm aggregate of red-brown hemorrhagic material. ??The specimen is entirely submitted as E1 following filtration. Yasmin Long 05/13/2013 03:36 PM End of Report [facility] 05/13/2013 14:1 0 EDT 05/13/2013 14:10 EDT Antoinette Ambrose MD PATHOLOGY ORDERABLES Performing Organization Address City/State/[facility] Co de Phone Number [facility] [address] [place] [address] * (ABNORMAL) GLUCOSE, GLUCOMETER (05/13/2013 10:33 EDT) Glucose, Fingerstick 114(H) 70 - 100 mg/dl [facility] [employer] [place] [id number] [facility] Comment:Test Performed by [facility] 05/13/2013 10:3 3 EDT 05/13/2013 10:36 EDT Antoinette Ambrose MD CHEMISTRY & BLOOD GA S ORDERABLES [facility] [address] [place] [address] documented in this encounter Visit Diagnoses Not on filedocumented in this encounter Administered Medications Inactive Administered Medications - up to 3 most recent administrations Medication Order MAR Action Action Date Dose Rate Site fentaNYL citrate (PF) 50 mcg/mL injection 25-100 mcg 25-100 mcg, intravenous, EVERY 5 MIN PRN, Starting on Mon05/13/13 at 1239, Until Mon05/13/13 at 1749, Pain, Routine, Recovery (only) Given 05/13/2013 13:33 EDT 50 mcg Given 05/13/2013 13:20 EDT 50 mcg lactated ringers (LR) infusion at 25 mL/hr, intravenous, CONTINUOUS, Starting on Mon05/13/13 at 1030, Until Mon05/13/13 at 1220, Routine, Pre-Op DOS Rx Approved New Bag 05/13/2013 10:34 EDT 25 mL/hr lactated ringers (LR) infusion at 75 mL/hr, intravenous, CONTINUOUS, Starting on Mon05/13/13 at 1300, Until Mon05/13/13 at 1749, Routine, Recovery (only) New Bag 05/13/2013 14:48 EDT 75 mL/hr Rate Documented 05/13/2013 13:05 EDT 75 mL/hr oxyCODONE (ROXICODONE) immediate release tablet 5-15 mg 5-15 mg, oral, PRN, 2 doses, Starting on Mon05/13/13 at 1239, Until Mon05/13/13 at 1749, Pain, Routine, Recovery (only) Given 05/13/2013 13:18 EDT 10 mg documented in this encounter Active and Recently Administered Medications Times are shown in EDT. Continuous Medication Order 05/11/2013 05/12/2013 05/13/2013 lactated ringers (LR) infusion (CANCELED) at 25 mL/hr, intravenous, CONTINUOUS, Starting on Mon05/13/13 at 1030, Until Mon05/13/13 at 1220, Routine, Pre-Op DOS Rx Approved 1034 (New Bag - Prov ider: Kalpana Murillo RN)1305 (Completed - Provider: Roxie Pandey RN) lactated ringers (LR) infusion (CANCELED) at 75 mL/hr, intravenous, CONTINUOUS, Starting on Mon05/13/13 at 1300, Until Mon05/13/13 at 1749, Routine, Recovery (only) 1305 (Rate Documente d - Provider: Roxie Pandey RN)1448 (New Bag - Provider: Mitzi Phillips, RON) PRN Medication Order 05/11/2013 05/12/2013 05/13/2013 fentaNYL citrate (PF) 50 mcg/mL injection 25-100 mcg (CANCELED) 25-100 mcg, intravenous, EVERY 5 MIN PRN, Starting on Mon05/13/13 at 1239, Until Mon05/13/13 at 1749, Pain, Routine, Recovery (only) 1320 (Given - Provid er: Roxie Pandey RN)1333 (Given - Provider: Roxie Pandey RN) oxyCODONE (ROXICODONE) immediate release tablet 5-15 mg (CANCELED) 5-15 mg, oral, PRN, 2 doses, Starting on Mon05/13/13 at 1239, Until Mon05/13/13 at 1749, Pain, Routine, Recovery (only) 1318 (Given - Provid er: Roxie Pandey RN) documented in this encounter Orders Medications Ordered That Max ht Not Have Been Administered Count Last Ordered Date First Ordered Date albuterol (PROVENTIL) nebuli zer solution 2.5 mg 1 05/13/2013 atropine 0.1 mg/mL 10 mL syringe 0.5 mg 1 0 05/13/2013 diphenhydrAMINE (BENADRYL) i njection 6.25 mg 1 05/13/2013 HYDROmorphone (DILAUDID) tablet 2-4 mg 1 naloxone (NARCAN) injection 0.2 mg 1 2012 ondansetron (PF) (ZOFRAN) injection 2 mg 1 05/13/2013 Nursing Count Last Ordered Date First Orde red Date APPLY WARMING BLANKET 1 05/13/[address] SEQUENTIAL COMPRESSION DEVICE 1 05/13 Transfer Count Last Ordered Date First Orde red Date NOTIFY PPS PACU PATIENT DISCHARGE 013 NOTIFY PPS PATIENT ARRIVAL IN PACU 1 07/15/ 2013 Discharge Count Last Ordered Date First Orde red Date DISCHARGE PATIENT 1 05/13/2013 documented in this encounter Care Teams Physical Sciences Professor Relationship Specialty Start Date End Date Keshawn Mehta MD [address] [place] [id number] PCP - General 02/19/09 01/04/15 documented as of this encounter
--- OUTSIDE RECORDS SUMMARY | 2024-06-24 02:19 | XMS_ITS | Encounter Summary ---
Author Organization [facility] Address [address] [place] [address] Care Team Providers Care Wood Heel Flap Inserter Name Role Phone Remedios Mehta MD Primary Care Provider [phone] Reason for Visit * Reason Onset Date Comments Advice Only 02/07/2013 Encounter Details Date Type Department Care Team (Late st Contact Info) Description 02/07/2013 Telephone [facility] Interventional Pain [address] [place], [place] [id number] Abundio Tubbs, DO [address] [facility] [address] [place], [place] [address] Advice Only Social History Tobacco Use Types [...] encounter Miscellaneous Notes * Telephone Encounter - Jaimee Schroeder - 02/13/2013 1313 EDT APPT 03/06/13 on wait list * Telephone Encounter - Samra Byrne RN - 02/13/2013 1028 EDT RN called pt and discussed less than desirable diagnostic info and no relief after 2 weeks with steroid. She wants to try another injection if Dr Tubbs has anything to recommend and she states her hydrocodone normally works for the pain but it is not working. RN offered f/u vs neck injection. She isreceptive to this. RN advised to contact her PCP for meds and if he needs advise that can be done after she is examined at her next appt or PCP can call if they need direction on meds. She will call her PCP for meds and await next appt with Dante, no sooner than 6 weeks from last injection. 07/06/12 cervical epidural steroid injection (C5-6 ) - no relief 01/15/13 Cervical facet joint injecgtion, C3-C4 bilateral - 30% X 3 hours otherwise no benefit from steroid * Telephone Encounter - Delia Lama RN - 02/12/2013 1654 EDT ----- Message from Abundio Tubbs DO sent at 02/12/2013 16:54 ----- she will have to come in for a follow up visit to discuss. Called pt. And asked her if she would be agreeable to a f/u visit per Dr. Tubbs. She agrees, will send to scheduling for a f/u. * Telephone Encounter - Delia Lama RN - 02/12/2013 1605 EDT Message re-sent to Dr. Tubbs. * Telephone Encounter - Jaimee Schroeder - 02/12/2013 1224 EDT Pt is calling again to see what to do for her pain. Pt is having problems walking and sitting. * Telephone Encounter - Ivy Rayo RN - 02/07/2013 1633 EDT Returned call to patient, she complains of severe neck pain for the last three days. She states hercervical facet injections relief was good for the day of procedure and the next day but no relief after. Will discuss plan with and address with patient. * Telephone Encounter - Jaimee Schroeder - 02/07/2013 1425 EDT Pt is calling because her neck pain is not any better. Pt states she is having more pain and it is traveling her back to her buttock then leg. documented in this encounter Plan of Treatment Not on file documented as of this encounter Visit Diagnoses Not on filedocumented in this encounter Care Teams Wood Heel Flap Inserter Relationship Specialty Start Date End Date Remedios Mehta MD [address] [place] [phone] PCP - General 02/19/09 01/04/15 documented as of this encounter
--- OUTSIDE RECORDS SUMMARY | 2024-06-24 02:19 | XMS_ITS | Encounter Summary ---
Author Organization [facility] Address [address] [place] [address] Care Team Providers Care Hydro Generation Manager Name Role Phone Remedios Mehta MD Primary Care Provider [phone] Encounter Details Date Type Department Care Team (Late st Contact Info) Description 04/23/2013 Results Only [facility] Laboratory Services - [facility] ([facility] [place] [address] [place] [phone] Antoinette Schilling MD [address] [place] [address] Social History Tobacco Use Types [...] Procedure Name Priority Date/Time Associated Diagnosis Comments BACTERIAL CULTURE, URINE Routine 04/23/2013 14:31 EDT documented in this encounter Results * BACTERIAL CULTURE, URINE (04/23/2013 14:31 EDT) Specimen Description Urine [facility] Result Less than 10,000 CFU/ml Mixed gram positive growth [facility] Report Status 04/24/2013 Final [facility] URINE / Unknown 04/23/2013 1 4:31 EDT 04/23/2013 14:31 EDT Antoinette Schilling MD MICROBIOLOGY - GENER AL ORDERABLES [facility] [address] [place] [address] documented in this encounter Visit Diagnoses Not on filedocumented in this encounter Care Teams Hydro Generation Manager Relationship Specialty Start Date End Date Remedios Mehta MD [address] [place] [phone] PCP - General 02/19/09 01/04/15 documented as of this encounter
--- OUTSIDE RECORDS SUMMARY | 2024-06-24 02:19 | XMS_ITS | Encounter Summary ---
Author Organization [facility] Address [address] [place] [address] Care Team Providers Care Automatic Outsole Cutter Name Role Phone Remedios Mehta MD Primary Care Provider [phone] Reason for Visit * Reason Onset Date Comments Medication Questions 02/07/2013 Encounter Details Date Type Department Care Team (Late st Contact Info) Description 02/07/2013 Telephone [facility] Rheumatology & Immunology - [facility] [address] [place] [address] Yovana Callejas MD [address] [place] [address] [phone] Medication Questions Social History Tobacco Use Types [...] encounter Miscellaneous Notes * Telephone Encounter - Robyn Nathan RN - 02/07/2013 1421 EDT Spoke with pt. I advised her that if she has the Enbrel on hand that she can start it anytime. She has a friend that is going to residential caregiver her the first injection and she will call us to set up a teaching when her back pain is improved. * Telephone Encounter - France Melvin - 02/07/2013 1408 EDT Pt does not know when to start her injections because she took her Cymbalta and methotrexate and and her Enbrel came in the mail on Monday. Pt is requesting a call back from a nurse. documented in this encounter Plan of Treatment Not on file documented as of this encounter Visit Diagnoses Not on filedocumented in this encounter Care Teams Automatic Outsole Cutter Relationship Specialty Start Date End Date Remedios Mehta MD [address] [place] [phone] PCP - General 02/19/09 01/04/15 documented as of this encounter
--- OUTSIDE RECORDS SUMMARY | 2024-06-24 02:19 | XMS_ITS | Encounter Summary ---
Author Organization [facility] Address [address] [place] [address] Care Team Providers Care Check Clerk Name Role Phone Remedios Mehta MD Primary Care Provider [phone] Reason for Visit * Reason Onset Date Comments Appointment Related 05/06/2013 Encounter Details Date Type Department Care Team (Late st Contact Info) Description 05/06/2013 Telephone [facility] Hematology & Oncology - [facility] [address] [place] [address] Minoo Messer NP [address] [facility], [address] [place] [address] Appointment Related Social History Tobacco Use Types [...] Miscellaneous Notes * Telephone Encounter - Yovana Russell - 05/06/2013 0919 EDT Patient is with her father who is in the hospital in [place] and she needs to cancel her appt today and would like to reschedule for this or Monday when she hopes to be back.please call her to reschedule documented in this encounter Plan of Treatment Not on file documented as of this encounter Visit Diagnoses Not on filedocumented in this encounter Care Teams Check Clerk Relationship Specialty Start Date End Date Remedios Mehta MD [address] [place] [phone] PCP - General 02/19/09 01/04/15 documented as of this encounter
--- OUTSIDE RECORDS SUMMARY | 2024-06-24 02:19 | XMS_ITS | Encounter Summary ---
Author Organization [facility] Address [address] [place] [address] Care Team Providers Care Hand Deicer Element Winder Name Role Phone Remedios Mehta MD Primary Care Provider [phone] Reason for Visit * Reason Onset Date Comments Gastroesophageal Reflux 01/30/2013 Encounter Details Date Type Department Care Team (Late st Contact Info) Description 01/30/2013 Telephone [facility] Pulmonology & Critical Care - [facility] [address] [place] [address] Roxie Morrell RT [address] [place] [address] Gastroesophageal Reflux Social History Tobacco Use Types Packs/Day Years [...] 1 Cap by mouth 2 times daily. Once daily before a meal. 60 Cap 2 01/31/2013 01/31/2013 omeprazole (PRILOSEC) 20 mg capsuleIndications:GERD (gastroesophageal reflux disease),Cough Take 1 Cap by mouth 2 times daily. 60 Cap 2 01/31/2013 06/05/2013 omeprazole (PRILOSEC) 20 mg capsuleIndications:GERD (gastroesophageal reflux disease),Cough Take 1 Cap by mouth 2 times daily. Once daily before a meal. 30 Cap 2 01/31/2013 01/31/2013 documented in this encounter Miscellaneous Notes * Telephone Encounter - Roxie Morrell, RT - 01/31/2013 1147 EDT Left message that prescription for omeprazole 20 mg BID has been approved by insurance and prescription sent to [facility]. She has been advised to follow up with GI, and to call back with questions. * Telephone Encounter - Roberto Hodges MD - 01/31/2013 1008 EDT Please have her increase omeprazole to 20mg twice daily. Please also ask her to call and speak to GI (Dr Sanz) about her worsening GERD and lack on control on PPIs. She is being treated by GI for GERD and all further medication changes should be done by them, not us. Rx escribed as 20mg BID x 3 refills. If she would like another referral to GI I would be happy to do so. Thanks. * Telephone Encounter - Roxie Morrell RT - 01/30/2013 1710 EDT Ms Husain left a message for [facility] to cancel her testing because she is having a hard time managing her GERD. Her insurance company denied twice daily dosing of omeprazole so she has been taking it once day. She is having regurgitation of food, raw and burning in her throat, bad breath, bad taste in mouth, increased shortness of breath. I let her know I would contact insurance tomorrow. documented in this encounter Plan of Treatment Not on file documented as of this encounter Visit Diagnoses Diagnosis GERD (gastroesophageal reflux disease)- Primary Esophageal reflux Cough documented in this encounter Discontinued Medications Medication Sig Discontinue Reason Start Date End Da te omeprazole (PRILOSEC) 20 mg capsule Once daily before a meal. Reorder 12/27/2012 01/31/2013 omeprazole (PRILOSEC) 20 mg capsuleIndications:GERD (gastroesophageal reflux disease),Cough Take 1 Cap by mouth 2 times daily. Once daily before a meal. Reorder 01/31/2013 01/31/2013 omeprazole (PRILOSEC) 20 mg capsuleIndications:GERD (gastroesophageal reflux disease),Cough Take 1 Cap by mouth 2 times daily. Once daily before a meal. Duplicate Therapy 01/31/2013 01/31/2013 documented as of this encounter Care Teams Hand Deicer Element Winder Relationship Specialty Start Date End Date Remedios Mehta MD [address] [place] [phone] PCP - General 02/19/09 01/04/15 documented as of this encounter
--- OUTSIDE RECORDS SUMMARY | 2024-06-24 02:19 | XMS_ITS | Encounter Summary ---
Author Organization [facility] Address [address] [place] [address] Care Team Providers Care Electrical Design Technologist Name Role Phone Remedios Mehta MD Primary Care Provider [phone] Reason for Referral * Consult (Routine/Next Available) - Closed Specialty Diagnoses / Procedures Referred By Joao proctor Referred To Contact Pain Medicine Diagnoses Chronic low back pain Low back pain Lumbosacral spondylosis without myelopathy Marylou Gentile PA-C [address] [place] [address] [facility] [address] [place] [address] Referral ID Status Reason Start Date Expiration Date V isits Requested Visits Authorized [id number] Closed Specialty Services Required 04/24/2013 1 1 Question Answer Reason for Request: trial facet injections L4-5 and L5-S1 Comments Chronic low back pain may be facetogenic in origin. MRI shows mild facet hypertrophy L4-5 and L5-S1. Injection for therapeutic effect Reason for Visit * Reason Comments Back Pain Encounter Details Date Type Department Care Team (Late st Contact Info) Description 04/24/2013 14:30 EDT Office Visit [facility] Spine Program - [address] [place] [address] Marylou Gentile PA-C [address] [place] [phone] Lumbosacral spondylosis without myelopathy (Primary Dx); Low back pain; Chronic low back pain [...] - - Weight 100.7 kg (222 lb) 04/24/2013 1418 EDT Height 152.4 cm (5') 04/24/2013 1418 EDT Body Mass Index 43.36 04/24/2013 1418 EDT documented in this encounter Functional Status Cognitive Status Response Date of Assessm ent Because of a physical, menta l, or emotional condition, do you have serious difficulty concentrating, remembering, or making decisions? (5 years old or older) Yes 04/15/2010 documented as of this encounter Discharge Disposition Disposition Code Departure Means Destination Auto Discharge documented in this encounter Progress Notes * Marylou Gentile - 04/24/2013 1440 EDT SUBJECTIVE: Ms Husain presents today for followup status post lumbar MRI. She has a history of chronic low back pain that has been ongoing since she was an adolescent. This has gradually worsened. Described as a throbbing soreness with occasional stabbing sensation that is constant in nature. She reports 90% back pain, 10% left leg pain. Left leg pain, numbness and tingling track through the buttock down the posterior lateral thigh into the posterior medial calf, involving medial foot into the1st and 2nd digits. Back pain is worse with prolonged sitting, standing or lying down. She feels better when using heat packs. Last attempt at care partner was over 4 years ago with no effect. In termittent aquatic physical therapy since the age of 21 provides some relief. Previous injection therapy consisted of an L5-S1 TLESI on 03/06/2013, which provided 60% relief for a 3-hour duration. Nolong-term effect was seen from the steroid. Pain medications include hydrocodone and Tylenol p.r.n. Since our last visit, she notes no change to her symptoms. She has reinitiated aquatic physical therapy, now going 3 times a week, which does make her feel better while in the water. A trial of Mobichas offered no change to her symptoms. She denies any bowel or bladder dysfunction. She does continue to note weakness of the lower extremities with multiple trips and falls related to bilateral kneearthritis. She continues to use a cane for ambulation. Current pain scale is an 8/10. OBJECTIVE: Physical exam is deferred today. We reviewed the patient's most recent lumbar MRI dated 04/17/2013. Sagittal and axial views of T1- and T2-weighted images show a fibroid measuring 3.5 cm in size within the myometrium of the uterus. Lumbar spine shows normal bony alignment. Disk heights are preserved. At L4-5, there is mild global disk bulge with mild facet hypertrophy producing no central or foraminal stenosis. L5-S1 shows mild facet hypertrophy. Disk appears normal. Mild right foraminal stenosis is seen. AP, lateral, flexion, extension views of the lumbar spine dated 04/01/2013 showed 5 kqq-hae-gwngzncswyxeaypu with a mild leftward curvature of thoracolumbar spine. SI joints are unremarkable. Vertebral body heights are preserved throughout. Disk heights are maintained. Facet hypertrophy is seen at L3-4, L4-5 and L5-S1. Flexion, extension views show no evidence of instability or spondylolisthesis. ASSESSMENT AND PLAN: Ms Husain is a 53-year-old female presenting with continued low back pain radiating into left leg, likely related to a facetogenic origin. MRI shows no signs of nerve root irritation that would contribute to her lower extremity symptoms, this may be related to chemical radiculitis. However, this remains unclear. Regarding her low back pain, this is likely related to a facetogenic origin. MRI shows mild facet hypertrophy at L4-5 and L5-S1. We discussed moving forward with facet injections bilaterally at L4-5 and L5-S1 for therapeutic effect. Followup is planned for 2 weeks status post injections to discuss any symptom change. She should continue with her aquatic physical therapy program and may discontinue the Mobic, as she has not had any improvement of her symptoms with this medication trial. She continues to wait for her TENS unit to arrive. We again discussed the importance of weight loss management. She is planning on surgical removal of the uterine fibroid seen on MRI and is also interested in considering a breast reduction that she contributes to a degreeof her chronc pain. At this time, I see no clear surgical indication appropriate. All the patient'squestions have been answered today, and she is comfortable with the above-mentioned plan. Should facet injections show minimal effect, consideration of medial branch blocks with RFA may be appropriate at that time. MARIA Angelo I spent a total of 15 minutes in face to face time with this patient today and 15 minutes of that time was spent counseling the patient on the risks and treatment options for chronic low back pain. CC: Remedios Strong documented in this encounter Plan of Treatment Scheduled Referrals Name Type Priority Associated Diagnoses Orde r Schedule [facility] CON[facility] Outpatient Referral Routine Chronic low back pain Low back pain Lumbosacral spondylosis without myelopathy Ordered: 04/24/2013 documented as of this encounter Visit Diagnoses Diagnosis Lumbosacral spondylosis without myelopathy- Primary Low back pain Lumbago Chronic low back pain Lumbago documented in this encounter Care Teams Electrical Design Technologist Relationship Specialty Start Date End Date Remedios Mehta MD [address] [place] [phone] PCP - General 02/19/09 01/04/15 documented as of this encounter
--- OUTSIDE RECORDS SUMMARY | 2024-06-24 02:20 | XMS_ITS | Encounter Summary ---
Author Organization [facility] Address [address] [place] [address] Care Team Providers Care Garment Presser Name Role Phone Remedios Mehta MD Primary Care Provider [phone] Reason for Visit * Reason Onset Date Comments Medications Refill 10/05/2012 Encounter Details Date Type Department Care Team (Late st Contact Info) Description 10/05/[address] [address] Remedios Mehta MD [address] [place] [phone] Medications Refill Social History Tobacco Use [...] Dispensed Refills Start Date End Da te zafirlukast (ACCOLATE) 20 mg tabletIndications:Asthma,H yperlipidemia,Need for Tdap vaccination,Abdominal discomfort,IBS (irritable bowel syndrome),GERD (gastroesophageal reflux disease) Take 1 Tab by mouth 2 times daily. 60 Tab 5 10/05/2012 12/20/2012 documented in this encounter Miscellaneous Notes * Telephone Encounter - Arlen Pollock - 10/05/2012 1623 EST Medication Requested - accolate 20 Last Refill Date - 08.15.12 Last Visit Date - 08.29.12 Next Visit Date - 0 Is patient out of medication? No documented in this encounter Plan of Treatment Not on file documented as of this encounter Visit Diagnoses Diagnosis Asthma Unspecified asthma Hyperlipidemia Other and unspecified hyperlipidemia Need for Tdap vaccination Need for prophylactic vaccination with combined anzoucavie-kqljiqg-poygtbqyf (DTP) vaccine Abdominal discomfort Abdominal pain, unspecified site IBS (irritable bowel syndrome) Irritable bowel syndrome GERD (gastroesophageal reflux disease) Esophageal reflux documented in this encounter Discontinued Medications Medication Sig Discontinue Reason Start Date End Da te zafirlukast (ACCOLATE) 20 mg tabletIndications:Asthma, Hyperlipidemia,Need for Tdap vaccination,Abdominal discomfort,IBS (irritable bowel syndrome),GERD (gastroesophageal reflux disease) Take 1 Tab by mouth 2 times daily. Reorder 08/22/2012 10/05/2012 documented as of this encounter Care Teams Garment Presser Relationship Specialty Start Date End Date Remedios Mehta MD [address] [place] [phone] PCP - General 02/19/09 01/04/15 documented as of this encounter
--- OUTSIDE RECORDS SUMMARY | 2024-06-24 02:20 | XMS_ITS | Encounter Summary ---
Author Organization [facility] Address [address] [place] [address] Care Team Providers Care Wireless Sales Manager Name Role Phone Remedios Mehta MD Primary Care Provider [phone] [phone] Reason for Visit * Reason Comments Community [facility] Team Encounter Details Date Type Department Care Team (Late st Contact Info) Description 12/24/2012 Community Health Team [address], [address] [place] [address] Teresita Conley, RD [address] [place] [address] Social History Tobacco Use Types Packs/Day Years [...] as of this encounter Progress Notes * Deanna Choi - 12/24/2012 1147 EST ..Received referral to Community Health Team. Patient is scheduled to meet with teresita Morales on 12.31.12 at 2:30pm. ([facility]) documented in this encounter Plan of Treatment Not on file documented as of this encounter Visit Diagnoses Not on filedocumented in this encounter Care Teams Wireless Sales Manager Relationship Specialty Start Date End Date Remedios Mehta MD [address] [place] [phone] PCP - General 02/19/09 01/04/15 documented as of this encounter
--- OUTSIDE RECORDS SUMMARY | 2024-06-24 02:20 | XMS_ITS | Encounter Summary ---
Author Organization [facility] Address [address] [place] [address] Care Team Providers Care Textile Screen Printer Name Role Phone Remedios Mehta MD Primary Care Provider [phone] Reason for Visit * Reason Comments Arthritis Knee Pain left knee fell in ba thtub Asthma Allergic Rhinitis Foot Pain bottom of right foot - just started 2 d ago Encounter Details Date Type Department Care Team (Late st Contact Info) Description 01/02/2013 14:45 EST Office Visit [facility] - [address] [address] Remedios Mehta MD [address] [place] [address] Risk for falls (Primary Dx); GERD (gastroesophageal reflux disease); Asthma; Obesity, Class II, BMI 35-39.9, with comorbidity; Bloating; IBS (irritable bowel syndrome); Fibromyalgia; Hyperglycemia; Foot pain Social History Tobacco Use Types Packs/Day [...] Sign Reading Time Taken Comments Blood Pressure 98/56 01/02/2013 1514 EST Pulse 80 01/02/2013 1514 EST Temperature 36.6 ??C (97.8 ??F) 01/02/2013 1514 EST Respiratory Rate 48 01/02/2013 1514 EST Oxygen Saturation - - Inhaled Oxygen Concentration - - Weight 96.6 kg (213 lb) 01/02/2013 1514 EST Height - - Body Mass Index 40.85 12/12/2012 1607 EST documented in this encounter Functional Status Cognitive Status Response Date of Assessm ent Because of a physical, menta l, or emotional condition, do you have serious difficulty concentrating, remembering, or making decisions? (5 years old or older) Yes 04/15/2010 documented as of this encounter Patient Instructions * Patient Instructions* Remedios Strong MD - 01/02/2013 15:50 EST Images from the original note were not included. [facility] Patient Instructions Foot Pain: After Your Visit Your Care Instructions Foot injuries that cause pain and swelling are fairly common. Almost all sports or home repair projects can cause a misstep that ends up as foot pain. Normal wear and tear, especially as you get older, also can cause foot pain. Most minor foot injuries will heal on their own, and home treatment is usually all you need to do. If you have a severe injury, you may need tests and treatment. Follow-up care is a gomez part of your treatment and safety. Be sure to make and go to all appointments, and call your doctor if you are having problems. It???s also a good idea to know your test results and keep a list of the medicines you take. How can you care for yourself at home? ?? Take pain medicines exactly as directed. ?? If the doctor gave you a prescription medicine for pain, take it as prescribed. ?? If you are not taking a prescription pain medicine, ask your doctor if you can take an [id number] medicine. ?? Rest and protect your foot. Take a break from any activity that may cause pain. ?? Put ice or a cold pack on your foot for 10 to 20 minutes at a time. Put a thin cloth between theice and your skin. ?? Prop up the sore foot on a pillow when you ice it or anytime you sit or lie down during the next3 days. Try to keep it above the level of your heart. This will help reduce swelling. ?? Your doctor may recommend that you wrap your foot with an elastic bandage. Keep your foot wrapped for as long as your doctor advises. ?? If your doctor recommends crutches, use them as directed. ?? Wear roomy footwear. ?? As soon as pain and swelling end, begin gentle exercises of your foot. Your doctor can tell you which exercises will help. When should you call for help? Call 911 anytime you think you may need emergency care. For example, call if: ?? Your foot turns pale, white, blue, or cold. Call your doctor now or seek immediate medical care if: ?? You cannot move or stand on your foot. ?? Your foot looks twisted or out of its normal position. ?? Your foot is not stable when you step down. ?? You have signs of infection, such as: ?? Increased pain, swelling, warmth, or redness. ?? Red streaks leading from the sore area. ?? Pus draining from a place on your foot. ?? A fever. ?? Your foot is numb or tingly. Watch closely for changes in your health, and be sure to contact your doctor if: 1. You do not get better as expected. 2. You have bruises from an injury that last longer than 2 weeks. Where can you learn more? Go to www.[employer] customer insight.net/fahc Enter D999 in the search box to learn more about Foot Pain: After Your Visit. ?? [id number] [employer]. Care instructions adapted under license by [facility] This care instruction is for use with your licensed healthcare professional. If you have questions about a medical condition or this instruction, always ask your healthcare professional. [employer] disclaims any warranty or liability for your use of this information. Content Version: 9.2.656753; Last Revised: January 14, 2011 [facility] Patient Instructions Arch Pain: Exercises Your Care Instructions Here are some examples of typical rehabilitation exercises for your condition. Start each exercise slowly. Ease off the exercise if you start to have pain. Your doctor or physical therapist will tell you when you can start these exercises and which ones will work best for you. How to do the exercises Plantar fascia stretch 3. Sit in a chair and put your affected foot on your other knee. 4. Hold the heel of your foot in one hand, and grasp your toes with the other hand. 5. Pull on your heel (toward your body), and at the same time pull your toes back with your other hand. 6. You should feel a stretch along the bottom of your foot. 7. Hold 15 to 30 seconds. 8. Repeat 2 to 4 times. Plantar fascia stretch (kneeling) Note: You may want to place a pillow under your knees for this exercise. 1. Get on your hands and knees on the floor. Keep your heels pointing up and the balls of your feetand your toes on the floor. 2. Slowly sit back toward your ankles. 3. If this is too hard, you can try doing it one leg at a time. Stand up, and then kneel on one knee and keep the other leg forward. Place the foot of your forward leg flat on the ground and bend that knee. The heel on the leg still behind you should point up. The ball and toes of that foot should be on the floor. Sit back toward that ankle. 4. Hold 15 to 30 seconds. 5. Repeat 2 to 4 times. Switch legs if you are doing this one leg at a time. Plantar fascia self-massage 1. Sit in a chair. 2. Place your affected foot on a firm, tube-shaped object, such as a can or water bottle. 3. Roll your foot back and forth over the object to massage the bottom of your foot. 4. If you want to do ice massage, fill a water bottle about three-fourths of the way full and freeze before using. 5. Continue for 2 to 5 minutes. Bilateral calf stretch (knees straight) 1. Place a book on the floor a few inches from a wall or countertop, and put the balls of your feeton it. Your heels should be on the floor. The book needs to be thick enough so that you can feel a gentle stretch in each calf. If you are not steady on your feet, hold on to a chair, counter, or wall while you do this stretch. 2. Keep your knees straight, and lean forward until you feel a stretch in each calf. 3. To get more stretch, add another book or use a thicker book, such as a phone book, a dictionary,or an encyclopedia. 4. Hold the stretch for at least 15 to 30 seconds. 5. Repeat 2 to 4 times. Bilateral calf stretch (knees bent) 1. Place a book on the floor a few inches from a wall or countertop, and put the balls of your feeton it. Your heels should be on the floor. The book needs to be thick enough so that you can feel a gentle stretch in each calf. If you are not steady on your feet, hold on to a chair, counter, or wall while you do this stretch. 2. Bend your knees, and lean forward until you feel a stretch in each calf. 3. To get more stretch, add another book or use a thicker book, such as a phone book, a dictionary,or an encyclopedia. 4. Hold the stretch for at least 15 to 30 seconds. 5. Repeat 2 to 4 times. [place] pick-ups 1. Put some marbles on the floor next to a cup. 2. Sit down, and use the toes of your affected foot to lift up one marble from the floor at a time.Then try to put the marble in the cup. 3. Repeat 8 to 12 times. Towel scrunches 1. Sit down, and place your affected foot on a towel on the floor. You may also do this with both feet on the towel. 2. Scrunch the towel toward you with your toes. Then use your toes to push the towel back into place. 3. Repeat 8 to 12 times. Heel raises on a step 1. Stand on the bottom step of a staircase, facing up toward the stairs. Put the balls of your feeton the step. If you are not steady on your feet, hold on to the banister or wall. 2. Keeping both knees straight, slowly lift your heels above the step so that you are standing on your toes. Then slowly lower your heels below the step and toward the floor. 3. Return to the starting position, with your feet even with the step. 4. Repeat 8 to 12 times. Follow-up care is a gomez part of your treatment and safety. Be sure to make and go to all appointments, and call your doctor if you are having problems. It's also a good idea to know your test resultsand keep a list of the medicines you take. Where can you learn more? Go to www.[employer] customer insight.net/fahc Enter H119 in the search box to learn more about Arch Pain: Exercises. ?? [id number] [employer]. Care instructions adapted under license by [facility], [facility]. This care instruction is for use with your licensed healthcare professional. If you have questions about a medical condition or this instruction, always ask your healthcare professional. [employer] disclaims any warranty or liability for your use of this information. Content Version: 9.2.146486; Last Revised: March 08, 2010 documented in this encounter Ordered Prescriptions Prescription Sig Dispensed Refills Start Date End Da te lactobacillus rham. GG-inulin 10 billion cell -200 mg CpSPIndications:GERD (gastroesophageal reflux disease),Bloating,IBS (irritable bowel syndrome),Fibromyalgia, Risk for falls,Asthma,Obesity, Class II, BMI 35-39.9, with comorbidity,Hyperglycem ia Take 1 Applicator by mouth daily. 1 Bottle 3 01/02/2013 04/29/2013 documented in this encounter Progress Notes * Remedios Strong MD - 01/03/2013 0721 EST Subjective: Patient ID: Cherelle Husain is an 52 y.o. female. Chief Complaint Patient presents with ??? Arthritis ??? Knee Pain left knee fell in bathtub ??? Asthma ??? Allergic Rhinitis ??? Foot Pain bottom of right foot - just started 2 d ago HPI Cherelle is here for routine follow up and the above issues. Recently had a disagreement with her son and it has left her emotional. She has financial issues and took a roommate to help pay with rent but the roommate is unable to pay right now. Very stressful.But overall, Cherelle seemed in better spirits. Is finding the [facility] very helpful. [employer] Director has mentioned that probiotics might help her IBS and GERD sx. Recently had an injection in her knee that has been helpful, too, but still she walks with a cane and has significant knee and hip pain. Unable to exercise. Tries to eat healthy but has trouble losing weight. Recently fell in her bathtub trying to get out - needs a bar for her tub. Did not hurt herself fortunately from the fall. Sinuses also bothering her. Has been using saline spray, claritin and flonase. Feels more congested at night. New issue - bottom of right foot sore for past 2 days. No new trauma or activity. Hasn't tried anything for it. PMH/PSH/Meds/All/FH/SH all reviewed and updated in prism. Patient Active Problem List Diagnoses ??? Myalgia [...] on exertion) ??? GERD (gastroesophageal reflux disease) Past Medical History Diagnosis Date ??? Fibromyalgia [...] to Visit Medication Sig Dispense Refill ??? omeprazole (PRILOSEC) 20 mg capsule Once daily before a meal. 30 Cap 11 ??? CLARITIN 10 mg tablet TAKE ONE TABLET BY MOUTH EVERY DAY 90 Each 1 ??? zafirlukast (ACCOLATE) 20 mg tablet Take 1 Tab by mouth 2 times daily. 180 Tab 1 ??? trazodone (DESYREL) 100 mg tablet Take 2 Tabs by mouth. Take 1-2 tabs at bedtime for sleep as needed 56 Tab 1 ??? hydrocodone-acetaminophen (LORTAB) 5-500 mg tablet Take 1 Tab by mouth every 6 hours as needed for Pain (up to 4 pills a day). 120 Tab 3 ??? duloxetine (CYMBALTA) 60 mg capsule Take [...] (FLONASE) 50 mcg/actuation nasal spray Instill 1 [place] into both nostrils daily. 1 Bottle 5 ??? budesonide-formoterol HFA (SYMBICORT) 80-4.5 mcg/actuation HFAA inhaler Inhale 2 Puffs as directed 2 times daily. 1 Inhaler 5 ??? hydroxychloroquine (PLAQUENIL) 200 mg tablet Take 1 Tab by mouth 2 times daily. 60 Tab 11 ??? methotrexate 2.5 mg tablet Take 6 [...] rash ??? Codeine Shortness Of Breath ??? Egg/Poultry Hives ??? Nsaids (Non-Steroidal Anti-Inflammatory Drug) Other [...] are negative. - See HPI Objective: BP 98/56 Pulse 80 Temp(Src) 36.6 ??C (97.8 ??F) (Tympanic) Resp 48 Wt 96.616 kg (213 lb) LMP 03/09/2010 Physical Exam Constitutional: She is oriented to person, place, and time. She appears well- developed and well-nourished. Walks with difficulty with cane to table. Gets onto table by self but slowly HENT: Right Ear: External ear normal. Left Ear: External ear normal. Nose: Nose normal. Mouth/Throat: Oropharynx is clear and moist. Eyes: Conjunctivae are normal. Neck: Normal range of motion. Neck supple. Cardiovascular: Normal rate, regular rhythm and normal heart sounds. Pulmonary/Chest: Effort normal and breath sounds normal. Musculoskeletal: +tenderness over arch of right foot; normal pulses, sensation and strength and ROM of right foot Neurological: She is alert and oriented to person, place, and time. Skin: Skin is warm and dry. Psychiatric: She has a normal mood and affect. Recent pulmonary studies - reviewed with patient - under good control on current regimen; recommended weight loss Assessment: Plan: Cherelle was seen today for arthritis, knee pain, asthma and allergic rhinitis . Diagnoses and associated orders for this visit: Risk for falls - Generic DME Order - bar for tub ordered and one for a 4 pronged cane as well - Gerd (gastroesophageal reflux disease)/IBS/bloating - The current medical regimen is effective; continue present plan and medications. - lactobacillus rham. GG-inulin 10 billion cell -200 mg CpSP; Take 1 Applicator by mouth daily. - Asthma - The current medical regimen is effective; continue present plan and medications. Obesity, class ii, bmi 35-39.9, with comorbidity - Continue working with [facility] e Fibromyalgia - The current medical regimen is effective; continue present plan and medications. Continue weight loss efforts Hyperglycemia - Fasting labs pended Foot pain - arch pain Recommended stretches Moist heat F/u prn Return in about 2 months (around 03/04/2013). documented in this encounter Plan of Treatment Not on file documented as of this encounter Visit Diagnoses Diagnosis Risk for falls- Primary Personal history of fall GERD (gastroesophageal reflux disease) Esophageal reflux Asthma Unspecified asthma Obesity, Class II, BMI 35-39.9, with comorbidity Morbid obesity Bloating Flatulence, eructation, and gas pain IBS (irritable bowel syndrome) Irritable bowel syndrome Fibromyalgia Mylagia and myositis, unspecified Hyperglycemia Other abnormal glucose Foot pain Pain in limb documented in this encounter Orders Lab Orders Without Results Count Last Ordered D ate First Ordered Date COMPREHENSIVE METABOLIC PANEL (CMP) 1 01/02 HEMAGRAM 1 01/02/2013 HEMOGLOBIN A1C 1 01/02/2013 LIPID PROFILE (INCLUDES CHOL ESTEROL, TRIGLYCERIDES, HDL, LDL) 1 01/02/2013 Equipment Count Last Ordered Date First Orde red Date GENERIC DME ORDER 2 01/02/2013 documented in this encounter Care Teams Textile Screen Printer Relationship Specialty Start Date End Date Remedios Mehta MD [address] [place] [phone] PCP - General 02/19/09 01/04/15 documented as of this encounter
--- OUTSIDE RECORDS SUMMARY | 2024-06-24 02:20 | XMS_ITS | Encounter Summary ---
Author Organization [facility] Address [address] [place] [address] Care Team Providers Care Eligibility Examiner Name Role Phone Remedios Mehta MD Primary Care Provider [phone] Reason for Visit * Reason Onset Date Comments Medications Refill 12/19/2012 Encounter Details Date Type Department Care Team (Late st Contact Info) Description 12/19/[address] [address] Remedios Mehta MD [address] [place] [phone] Medications Refill Social History Tobacco Use [...] Dispensed Refills Start Date End Da te trazodone (DESYREL) 100 mg tabletIndications:Myalgia and myositis,Arthropathy Take 2 Tabs by mouth. Take 1-2 tabs at bedtime for sleep as needed 56 Tab 1 12/19/2012 05/06/2013 documented in this encounter Miscellaneous Notes * Telephone Encounter - Nathalia Ross - 12/19/2012 0916 EST Medication Requested - TRAZODONE 100MG Last Refill Date - 08.15.12 Last Visit Date - 12.03.12 Next Visit Date - 01.02.13 Is patient out of medication? UNK documented in this encounter Plan of Treatment Not on file documented as of this encounter Visit Diagnoses Diagnosis Myalgia and myositis- Primary Mylagia and myositis, unspecified Arthropathy Arthropathy, unspecified, site unspecified documented in this encounter Discontinued Medications Medication Sig Discontinue Reason Start Date End Da te trazodone (DESYREL) 100 mg tabletIndications:Myalgi a and myositis,Arthropathy Take 2 Tabs by mouth. Take 1-2 tabs at bedtime for sleep as needed Reorder 08/15/2012 12/19/2012 documented as of this encounter Care Teams Eligibility Examiner Relationship Specialty Start Date End Date Remedios Mehta MD [address] [place] [phone] PCP - General 02/19/09 01/04/15 documented as of this encounter
--- OUTSIDE RECORDS SUMMARY | 2024-06-24 02:20 | XMS_ITS | Encounter Summary ---
Author Organization [facility] Address [address] [place] [address] Care Team Providers Care Commercial Service Technician Name Role Phone Remedios Mehta MD Primary Care Provider [phone] Encounter Details Date Type Department Care Team (Late st Contact Info) Description 01/23/2013 Phlebotomy Only [address] [address] Instructional Designer, Outpatient Arthropathy; Encounter for long-term (current) use of other medications; Risk for falls; GERD (gastroesophageal reflux disease); Asthma; Obesity, Class II, BMI 35-39.9, with comorbidity; Bloating; IBS (irritable bowel syndrome); Fibromyalgia; Hyperglycemia; Psoriatic arthropathy ([facility]) Social History Tobacco Use Types Packs/Day Years [...] Procedure Name Priority Date/Time Associated Diagnosis Comments HEPATITIS C AB W REFLEX TO HCV RNA BY PCR Routine 01/23/2013 12:44 EDT Psoriatic arthropathy (HCC-CMS) Encounter for long-term (current) use of other medications HEPATITIS B CORE ANTIBODY (TOTAL) Routine 01/23/2013 12:44 EDT Psoriatic arthropathy ([facility]) Encounter for long-term (current) use of other medications DIFFERENTIAL Routine 01/23/2013 12:44 EDT HEPATITIS B SURFACE ANTIBODY Routine 01/23/2013 12:44 EDT Psoriatic arthropathy ([facility]) Encounter for long-term (current) use of other medications HEPATITIS B SURFACE ANTIGEN Routine 01/23/2013 12:44 EDT Psoriatic arthropathy ([facility]) Encounter for long-term (current) use of other medications COMPLETE BLOOD COUNT Routine 01/23/2013 12:44 EDT COMPLETE BLOOD COUNT AND DIFFERENTIAL Routine 01/23/2013 12:44 EDT Arthropathy Encounter for long-term (current) use of other medications COMPREHENSIVE METABOLIC PANEL (CMP) Routine 01/23/2013 12:44 EDT Arthropathy Encounter for long-term (current) use of other medications documented in this encounter Results * DIFFERENTIAL (01/23/2013 12:44 EDT) % Neutrophils 56.0 45.5 - 79.7 % [facility] % Lymphocytes 33.6 15.0 - 46.8 % [facility] % Monocytes 7.1 1.8 - 12.0 % [facility] % Eosinophils 2.0 0.6 - 6.9 % [facility] % Basophils 1.3 0.2 - 1.4 % [facility] ABS Neutrophils 4.46 2.20 - 8.85 K/cmm [facility] ABS Lymphs 2.68 1.09 - 3.30 K/cmm [facility] ABS Monocytes 0.57 0.1 - 0.8 K/cmm [facility] ABS Eosinophils 0.16 0.03 - 0.61 K/cmm [facility] ABS Basophils 0.10 0.01 - 0.11 K/cmm [facility] Type of Diff: Automated [facility] 01/23/2013 12:4 4 EDT 01/23/2013 13:08 EDT Yovana Callejas MD HEMATOLOGY & PF4 ORDERABLES Performing Organization Address [facility] Co de Phone Number [facility] [address] [place] [address] * (ABNORMAL) HEMAGRAM (01/23/2013 12:44 EDT) Pathologist [facility] WBC 7.97 4.0 - 12.4 K/cmm [facility] RBC 4.32 3.86 - 5.04 M/cmm [facility] Hemoglobin 13.5 11.6 - 15.2 gm/dl [facility] HCT 40.1 34.9 - 44.4 % [facility] MCV 93 81 - 98 fl [facility] MCH 31.3 26.7 - 33.3 pg [facility] MCHC 33.7 32.1 - 35.9 gm/dl [facility] PLT 356(H) 141 - 320 K/cmm [facility] RDW-CV 13.0 11.7 - 14.6 % [facility] 01/23/2013 12:4 4 EDT 01/23/2013 13:08 EDT Yovana Callejas MD HEMATOLOGY & PF4 ORDERABLES Performing Organization Address [facility] de Phone Number [facility] [address] [place] [address] * HEPATITIS C ANTIBODY (01/23/2013 12:44 EDT) Hepatitis C Ab Negative [facility] Comment:Reference Range: Neg ative Blood specimen (specimen) 01/23/2013 12:44 EDT 01/23/2013 13:08 EDT Yovana Callejas MD CHEMISTRY & BLOO D GAS ORDERABLES Performing Organization Address [facility] Phone Number [facility] [address] [place] [address] * HEPATITIS B CORE ANTIBODY (01/23/2013 12:44 EDT) Hep B Core Ab Negative [facility] Comment: Reference Range: ??Negative Interpretation depends on clinical setting. Blood specimen (specimen) 01/23/2013 12:44 EDT 01/23/2013 13:08 EDT Yovana Callejas MD CHEMISTRY & BLOO D GAS ORDERABLES Performing Organization Address [facility] Phone Number [facility] [address] [place] [address] * HEPATITIS B SURFACE ANTIBODY (01/23/2013 12:44 EDT) Hepatitis B Surface Ab Negative [facility] Comment: Reference Range: Unvaccinated: ??Negative Vaccinated: ??Positive HBs Antibody, Quant <5.0 mIU/mL [facility] Comment: Patient is presumed to not be immune to infection with HBV. Reference Range: Positive: >=12.0 mIU/mL Indeterminate: >=5.0 to <12.0 mIU/mL Negative: <5.0 mIU/mL Blood specimen (specimen) 01/23/2013 12:44 EDT 01/23/2013 13:08 EDT Yovana Callejas MD CHEMISTRY & BLOO D GAS ORDERABLES Performing Organization Address [facility] Co de Phone Number [facility] [address] [place] [address] * HEPATITIS B SURFACE ANTIGEN (01/23/2013 12:44 EDT) Hepatitis B Surface Ag Negative [facility] Comment:Reference Range: Neg ative Blood specimen (specimen) 01/23/2013 12:44 EDT 01/23/2013 13:08 EDT Yovana Callejas MD CHEMISTRY & BLOO D GAS ORDERABLES Performing Organization Address City/[facility] Co de Phone Number [facility] [address] [place] [address] * COMPREHENSIVE METABOLIC PANEL (CMP) (01/23/2013 12:44 EDT) Potassium 4.5 3.5 - 5.0 mEq/L [facility] Sodium 142 136 - 145 mEq/L [facility] Chloride 100 96 - 110 mEq/L [facility] CO2 32 24 - 32 mEq/L [facility] Total Alkaline Phosphatase 73 38 - 126 U/L [facility] Bilirubin, Total 0.9 0.2 - 1.3 mg/dl [facility] AST 17 15 - 46 U/L [facility] ALT 40 9 - 52 U/L [facility] Albumin 4.7 3.4 - 4.9 g/dl [facility] Total Protein 7.4 6.5 - 8.3 g/dl [facility] Creatinine 0.78 0.52 - 1.04 mg/dl [facility] GFR, Calculated >60 >60 ml/min/1.7 3m2 [facility] BUN 19 10 - 26 mg/dl [facility] Calcium 9.4 8.5 - 10.5 mg/dl [facility] Calculated Calcium 9.1 8.5 - 10.5 mg/dl [facility] Glucose, Serum 92 70 - 100 mg/dl [facility] Fasting? Unknown [facility] Blood specimen (specimen) 01/23/2013 12:44 EDT 01/23/2013 13:08 EDT Yovana Callejas MD CHEMISTRY & BLOO D GAS ORDERABLES Performing Organization Address [facility] Co de Phone Number [facility] [address] [place] [address] documented in this encounter Visit Diagnoses Diagnosis Arthropathy Arthropathy, unspecified, site unspecified Encounter for long-term (current) use of other medications Risk for falls Personal history of fall GERD (gastroesophageal reflux disease) Esophageal reflux Asthma Unspecified asthma Obesity, Class II, BMI 35-39.9, with comorbidity Morbid obesity Bloating Flatulence, eructation, and gas pain IBS (irritable bowel syndrome) Irritable bowel syndrome Fibromyalgia Mylagia and myositis, unspecified Hyperglycemia Other abnormal glucose Psoriatic arthropathy (HCC-CMS) Psoriatic arthropathy documented in this encounter Care Teams Commercial Service Technician Relationship Specialty Start Date End Date Remedios Mehta MD [address] [place] [phone] PCP - General 02/19/09 01/04/15 documented as of this encounter
--- OUTSIDE RECORDS SUMMARY | 2024-06-24 02:20 | XMS_ITS | Encounter Summary ---
Author Organization [facility] Address [address] [place] [address] Care Team Providers Care Drawstring Knotter Name Role Phone Remedios Mehta MD Primary Care Provider [phone] Reason for Referral * Other Type (Routine/Next Available) - Closed Specialty Diagnoses / Procedures [facility] Referred To Contact Diagnoses GERD (gastroesophageal reflux disease) Extrinsic asthma, unspecified Jessy Sky, RT Referral ID Status Reason Start Date Expiration Date V isits Requested Visits Authorized [id number] Closed Other 12/19/2012 1 1 Question Answer Medication to be Prior Authorized: omeprazole 20 mg, take 2 caps BID, Josue Andino in [place], , [place] Medicaid ID# [id number]? Comments The purpose of this consult request is to inform the scheduling staff that a medication needs to be prior-authorized before it is prescribed and/or administered. Reason for Visit * Reason Onset Date Comments Prior Auth, Medication 12/19/2012 prilosec BID dosing Encounter Details Date Type Department Care Team (Late st Contact Info) Description 12/19/2012 Orders Only [facility] Pulmonology & Critical Care - [facility] [address], [place] [id number] Jessy Sky, RT GERD (gastroesophageal reflux disease) (Primary Dx); Extrinsic asthma, unspecified Social History Tobacco Use Types Packs/Day Years [...] as of this encounter Plan of Treatment Scheduled Referrals Name Type Priority Associated Diagnoses Order Schedule AMB MEDICATION PRIOR AUTHORIZATION Outpatient Referral Routine GERD (gastroesophageal reflux disease) Extrinsic asthma, unspecified Ordered: 12/19/2012 documented as of this encounter Visit Diagnoses Diagnosis GERD (gastroesophageal reflux disease)- Primary Esophageal reflux Extrinsic asthma, unspecified documented in this encounter Care Teams Drawstring Knotter Relationship Specialty Start Date End Date Remedios Mehta MD [address] [place] [phone] PCP - General 02/19/09 01/04/15 documented as of this encounter
--- OUTSIDE RECORDS SUMMARY | 2024-06-24 02:20 | XMS_ITS | Encounter Summary ---
Author Organization [facility] Address [address] [place] [address] Care Team Providers Care Digital Marketing Apprentice Name Role Phone Remedios Mehta MD Primary Care Provider [phone] Reason for Visit * Reason Onset Date Comments Medications Refill 12/27/2012 Encounter Details Date Type Department Care Team (Late st Contact Info) Description 12/27/2012 Refill [facility] Pulmonology & Critical Care - [facility] [address] [place] [address] Jessy Sky RT Medications Refill Social History Tobacco Use Types [...] daily before a meal. 30 Cap 11 12/27/2012 01/31/2013 documented in this encounter Miscellaneous Notes * Telephone Encounter - Jessy Sky, RT - 12/27/2012 4139 EST Pharmacist concerned as the script for the prilosec sent over, suggested max dosing of 80 mg daily.The insurance was denying, so E-scribed prilosec to [facility] pharmacy in [place] for Ms. Husain on 12/27/2012 (without the max dosing info) . Pharmacist relieved. RT TELMA documented in this encounter Plan of Treatment Not on file documented as of this encounter Visit Diagnoses Not on filedocumented in this encounter Discontinued Medications Medication Sig Discontinue Reason Start Date End Da te omeprazole (PRILOSEC) 20 mg capsule Once daily before a meal. Max dose 80 mg daily. Reorder 12/25/2012 12/27/2012 documented as of this encounter Care Teams Digital Marketing Apprentice Relationship Specialty Start Date End Date Remedios Mehta MD [address] [place] [phone] PCP - General 02/19/09 01/04/15 documented as of this encounter
--- OUTSIDE RECORDS SUMMARY | 2024-06-24 02:20 | XMS_ITS | Encounter Summary ---
Author Organization [facility] Address [address] [place] [address] Care Team Providers Care Railroad Yard Worker Name Role Phone Remedios Mehta MD Primary Care Provider [phone] Encounter Details Date Type Department Care Team (Late st Contact Info) Description 09/17/2012 6:25 EST - 09/17/2012 10:30 [facility] Hospital Encounter [facility] Perioperative Services- [facility] [address], [place] [id number] Antoinette Schilling MD [address] [place] [address] Viky Britt [address] [place] [address] Mago Vallecillo MD [address] [place] [address] Discharge Disposition: Home or Self Care [...] Sign Reading Time Taken Comments Blood Pressure 106/67 09/17/2012 1000 EST Pulse - - Temperature 35.9 ??C (96.6 ??F) 09/17/2012 0945 EST Respiratory Rate 18 09/17/2012 1000 EST Oxygen Saturation 98% 09/17/2012 1000 EST Inhaled Oxygen Concentration - - Weight 95.7 kg (211 lb) 09/12/2012 1338 EST Height 152.4 cm (5') 09/12/2012 1338 EST Body Mass Index 41.21 09/12/2012 1338 EST documented in this encounter Functional Status Cognitive Status Response Date of Assessm ent Because of a physical, menta l, or emotional condition, do you have serious difficulty concentrating, remembering, or making decisions? (5 years old or older) Yes 04/15/2010 documented as of this encounter Discharge Instructions * Discharge Instructions* Agueda Maldonado MD - 09/17/2012 9:28 EST Diet: Regular Activity: Nothing in vagina (no tampons, douches, or intercourse for 2 weeks) Skin/Wound Care: Not applicable Bathing: No restrictions Pending Results: Not applicable Symptoms to Call Your Doctor About: Chest pain (angina) Dizziness or fainting Decreased urine output Fever greater than 100.4 or chills Inability to swallow or increasing difficulty swallowing Increased or new pain Increased peripheral edema Nausea or vomiting Pain unrelieved by medication Severe or increasing headache Shortness of breath or rapid breathing Skin rash Appointments: See Dr. Schilling in 2 weeks. Please call for an appointment if you do not already have one. Follow-up Services Contacted at Discharge: none Health Risk and Disease Information: Not applicable Medications: Resume home medications. Start taking lovenox 60mg subcutaneously daily for 10 days. Please start on Monday. documented in this encounter Medications at Time [...] times daily. 1 Inhaler 5 07/16/2012 06/05/2013 duloxetine (CYMBALTA) 20 mg capsuleIndications:D epression, major Take 1 Cap by mouth 2 times daily. 60 Cap 4 04/04/2012 10/11/2012 enoxaparin (LOVENOX) 60 mg/0.6 mL injectionIndications :Hypercoagulable state ([facility]) Inject 60 mg into the skin daily. 10 Syringe 0 09/04/2012 12/03/2012 fluocinonide (LIDEX) 0.05 % cream Apply to affect area(s) as directed. 60 g 3 03/23/2012 06/05/2013 fluticasone (FLONASE) 50 mcg/actuation nasal sprayIndications:Ast hma,Hyperlipidemia,N eed for Tdap vaccination,Abdomina l discomfort,IBS (irritable bowel syndrome),GERD (gastroesophageal reflux disease) Instill 1 [place] into both nostrils daily. 1 Bottle 5 07/16/2012 06/05/2013 hydrocodone-acetamin ophen (LORTAB;VICODIN) 5-500 mg tabletIndications:Ar thritis Take 1 Tab by mouth every 6 hours as needed for Pain (up to 4 pills a day). 120 Tab 3 06/04/2012 11/26/2012 hydroxychloroquine (PLAQUENIL) 200 mg tabletIndications:Ar thropathy,Arthritis Take 1 Tab by mouth 2 times daily. 60 Tab 11 06/04/2012 01/30/2013 ketoconazole (NIZORAL) 2 % creamIndications:Jace h Apply topically daily. Apply to affect area(s) as directed. 1 Tube 1 02/17/2010 04/18/2021 loratadine (CLARITIN) 10 mg tabletIndications:Al lergic rhinitis Take 1 Tab by mouth daily. 90 Tab 1 06/07/2012 12/25/2012 lovastatin (MEVACOR) 10 mg tabletIndications:Hy perlipidemia,Asthma, Need for Tdap vaccination,Abdomina l discomfort,IBS (irritable bowel syndrome),GERD (gastroesophageal reflux disease) Take 1 Tab by mouth daily. 90 Tab 4 08/22/2012 07/12/2013 methotrexate 2.5 mg tabletIndications:Ar thritis Take 6 Tabs by mouth once a week. 24 Each 11 06/04/2012 04/29/2013 metoprolol (LOPRESSOR) 25 mg tabletIndications:Hy pertension Take 1 Tab by mouth 2 times daily. 180 Tab 4 04/04/2012 06/05/2013 pantoprazole (PROTONIX) 40 mg tabletIndications:GE RD (gastroesophageal reflux disease) Take 1 Tab by mouth daily. 90 Tab 1 06/07/2012 12/12/2012 predniSONE (DELTASONE) 20 mg tablet Take 1 Tab by mouth 2 times daily. 8 Tab 0 08/25/2012 10/11/2012 trazodone (DESYREL) 100 mg tabletIndications:My algia and myositis,Arthropathy Take 2 Tabs by mouth. Take 1-2 tabs at bedtime for sleep as needed 56 Tab 1 08/15/2012 12/19/2012 zafirlukast (ACCOLATE) 20 mg tabletIndications:As thma,Hyperlipidemia, Need for Tdap vaccination,Abdomina l discomfort,IBS (irritable bowel syndrome),GERD (gastroesophageal reflux disease) Take 1 Tab by mouth 2 times daily. 60 Tab 5 08/22/2012 10/05/2012 documented as of this encounter Discharge Disposition Disposition Code Departure Means Destination Home or Self Care documented in this encounter Progress Notes * Cathryn Licea RN - 09/17/2012 1037 EST OOB to void. Steady on feet. Voided without difficulty. No increase Nausea or pain with activity. Left via WC with business intern in stable condition. * Cathryn Licea RN - 09/17/2012 1001 EST Pt doing nicely at this point. Pain tolerable, AVS reviewed. Waiting for urge to void. Friend at bedside. Pt calm, awake, chatting with friend. * Cathryn Licea RN - 09/17/2012 0923 EST Pt arrived in PACU agitated with c/o multiple needs, urinary urgency, pain in abdomen (intense cramping) and LBP. States usually lives with 6/10 back pain. Heat applied, medicated. Bed webb offered,heat pack applied to back. Calmed down as 30 minutes elapsed. Repeating herself frequently I'm sorry, I'm sorry for being such a pain. Reassurance provided. * Isha Molina RN - 09/12/2012 1733 EST Cherelle Husain has been instructed as follows regarding medication administration for the day of the scheduled procedure. Date of Surgery: 09/17/2012 Instructions for Taking Medications Day of Surgery Medication Last Dose Hold DOS Take DOS CALCIUM CARBONATE/VITAMIN D3 (CALCIUM WITH VITAMIN D ORAL) yes enoxaparin (LOVENOX) 60 mg/0.6 mL injection To start post-op albuterol (PROVENTIL) 2.5 mg /3 mL (0.083 %) nebulizer solution Prn, to use if needed albuterol (PROVENTIL HFA, VENTOLIN HFA) 90 mcg/actuation inhaler Prn, to use if needed predniSONE (DELTASONE) 20 mg tablet yes lovastatin (MEVACOR) 10 mg tablet yes zafirlukast (ACCOLATE) 20 mg tablet yes trazodone (DESYREL) 100 mg tablet @ HS fluticasone (FLONASE) 50 mcg/actuation nasal spray yes budesonide-formoterol HFA (SYMBICORT) 80-4.5 mcg/actuation HFAA inhaler yes loratadine (CLARITIN) 10 mg tablet yes pantoprazole (PROTONIX) 40 mg tablet yes hydroxychloroquine (PLAQUENIL) 200 mg tablet yes methotrexate 2.5 mg tablet Takes on Fri. hydrocodone-acetaminophen (LORTAB;VICODIN) 5-500 mg tablet yes duloxetine (CYMBALTA) 20 mg capsule yes metoprolol (LOPRESSOR) 25 mg tablet yes fluocinonide (LIDEX) 0.05 % cream yes acetaminophen (TYLENOL) 650 mg tablet Prn to use if needed ketoconazole (NIZORAL) 2 % cream yes lubiprostone (AMITIZA) 24 mcg capsule yes MULTIVITAMINS (MULTIVITAMIN ORAL) 09/12/2012 documented in this encounter H&P Notes * CURBER, SCAN 2 - 09/21/2012 1502 EST * Agueda Maldonado MD - 09/17/2012 0657 EST The preoperative history and physical which was performed within 30 days of this procedure has been reviewed and the clinically appropriate elements of the physical examination have been repeated. There are no changes to the documented history and physical or if so such changes are documented below: Tinal complains of a 5/10 dull headache in headband location secondary to lack of sleep. She was unable to sleep because she is feeling a little nervous about the procedure. She thinks she will feel better when it is over. Also has RLQ pain unchanged from baseline. Denies dizziness, sob, cp, n/v or current vaginal bleeding. Exam wnl. Plan still for lovenox 60mg QD for 10 days postop (beginning POD1) for history of DVT in . Agueda Maldonado MD 09/17/2012 6:57 documented in this encounter Procedure Notes * CURBER, SCAN 2 - 09/21/2012 1505 ESTAssociated Order(s): PROCEDURE REPORTS - SCANNED * CURBER, SCAN 2 - 09/21/2012 1502 ESTAssociated Order(s): ECG REPORT - SCANNED documented in this encounter Nursing Notes * CURBER, SCAN 2 - 09/21/2012 1502 EST documented in this encounter OR Notes * OR PreOp - CURBER, SCAN 2 - 09/21/2012 1502 EST * OR Surgeon - Agueda Maldonado MD - 09/18/2012 0931 EST OPERATIVE REPORT SERVICE DATE: 09/17/2012 SURGEON: Antoinette Schilling MD RENT AND MISCELLANEOUS REMITTANCE CLERK: Agueda Maldonado MD PREOPERATIVE DIAGNOSIS: Postmenopausal bleeding with 8 mm endometrial stripe on ultrasound. POSTOPERATIVE DIAGNOSIS: Postmenopausal bleeding with 8 mm endometrial stripe on ultrasound with 0.5 cm uterine polyp. PROCEDURE: Exam under anesthesia, diagnostic hysteroscopy, and fractionated dilation and curettage. ANESTHESIA: General with laryngeal mask airway and paracervical block of 0.25% Marcaine. INDICATIONS: This is a 52-year-old woman who was having postmenopausal bleeding and underwent a pelvic ultrasound, which showed a thickened endometrial stripe of 8 mm. After a discussion, it was decided to proceed with hysteroscopy, D and C. The procedure, risks, and recovery were reviewed and informed consent obtained. FINDINGS: 1. Exam under anesthesia revealed a mid-position small uterus. 2. Hysteroscopy revealed an approximately 1 cm anterior fundal polyp and an otherwise atrophic endometrium. 3. A 1 cm polyp was confirmed when seen with polyp forceps grossly. 4. Hemostasis at the end of case. NARRATIVE: The patient was brought back to the operating room with an IV in place. She was given general anesthesia and a laryngeal mask airway was placed. She was then placed in the dorsal lithotomyposition. She was prepped in the normal sterile fashion and her bladder was I and O catheterized and emptied. Exam under anesthesia was performed. She was then draped in the normal sterile fashion. Aweighted speculum was placed in the vagina. The anterior lip of the cervix was grasped with a single-tooth tenaculum. A paracervical block using 0.25% Marcaine at 4 o'clock, 8 o'clock, 10 o'clock, and 2 o'clock were given using a total of 15 mL. Endocervical curettage was performed. The cervix was t hen dilated up to a Hegar size 7 and a diagnostic hysteroscope was placed in the uterine cavity using saline as the distending medium. The above-stated findings are seen. The hysteroscope was then removed, and using the polyp forceps, the anterior fundal polyp was removed and appeared to be intact.The [place] curette was placed in the cavity and a thorough curetting performed. There was a homogeneous gritty texture throughout. No other abnormalities noted. All specimens were sent to pathology. All instruments were removed from the cavity. The anterior lip of the cervix had no bleeding as the tenaculum was removed. The patient had minimal bleeding. All instruments were removed. The patient was undraped. She was taken out of the dorsal lithotomy position. She was brought out from general anesthesia and moved to the recovery room in stable condition. ESTIMATED BLOOD LOSS: Less than 10 mL. FLUIDS: 600 mL of LR. URINE OUTPUT: 10 mL of clear yellow urine. SPECIMENS: 1. Endocervical curettings. 2. Uterine polyp. 3. Endometrial curettings. CULTURES: None. DRAINS, PACKS, FOREIGN MATERIALS RETAINED: None. COMPLICATIONS: None. CONDITION: Good. DISPOSITION: PACU and to home. Unless otherwise noted, there were no complications, no blood loss, no cultures obtained, no specimens removed, and no drains retained. Antoinette Schilling MD 06 24 PM / Agueda Maldonado MD mt Confirmation: [id number] Dictation ID: [id number] * OR PreOp - CURBER, SCAN 2 - 09/17/2012 0842 EST * Anesthesia Procedure Notes - CURBER, SCAN 2 - 09/17/2012 0840 EST * Anesthesia Preprocedure Evaluation - CURBER, SCAN 2 - 09/17/2012 0758 EST * Anesthesia Preprocedure Evaluation - CURBER, SCAN 2 - 09/17/2012 0741 EST documented in this encounter Miscellaneous Notes * Scanned Note-Null - CURBER, SCAN 2 - 09/21/2012 1502 EST * Scanned Note-Null - CURBER, SCAN 2 - 09/21/2012 1502 EST * Anesthesia Post-Eval - Tessa Carrera MD - 09/17/2012 1015 EST Post Anesthesia Evaluation Note Date of Service: 09/17/2012 Cherelle Husain, a 52 y.o. year old female has received General Anesthesia today. She has been evaluated, assessed and discharged from anesthesia care with stable cardiorespiratory function and alert mental status. The last set of recorded vital signs and pain rating were reviewed: Temp: 35.9 ??C (96.6 ??F) (09/17/1245), Heart Rate: (ekg removed, making skin itch) (11/19/12 0945), BP: 106/67 mmHg (09/17/12 1000), Resp: 17 (09/17/12 0930), SpO2: 98 % (09/17/12 1000), Pulse: 60 (09/17/12 0945),Numeric Pain Level (Scale 1-10): 5 Cherelle Husain participated in this evaluation unless otherwise noted. Her pain, nausea and vomiting have been managed and her body temperature and fluid balance have been restored. Additional monitoring and assessment needs have been addressed. If present, any postoperative events are documented below. Tessa Carrera MD 09/17/2012 10:15 * Brief Op Note - Agueda Maldonado MD - 09/17/2012 0830 EST Department of Obstetrics and Gynecology Brief operative Note Surgeon: Antoinette Schilling MD Web Development Instructor: Agueda Maldonado MD Pre-Op Dx/Indications: PMB with 8mm endometrial stripe on u/s Post-op Dx: Same with 0.5cm uterine polyp Procedure: EUA, hysteroscopy, D+C Anesthesia: GETA Findings: 1. Mid position small uterus on EUA 2. Atrophic uterus with anterior fundal polyp on hysteroscopy 3. 0.5cm polyp removed with polyp forceps 4. Hemostasis at end of case Blood Loss: <10cc Replacement IVF/Blood: 600cc LR Urine Output: 10 cc clear yellow urine Specimens sent: 1. Endocervical curettings, 2. Uterine polyp, 3. Endometrial curettings Cultures obtained: None Drains/Packs/Foreign Material Retained: None Complications: None Condition: Good Disposition: PACU-->Home Agueda Maldonado MD 09/17/2012 8:30 documented in this encounter Plan of Treatment Not on file documented as of this encounter Procedures Procedure Name Priority Date/Time Associated Diagnosis Comments PROCEDURE REPORTS - SCANNED 09/21/2012 15:05 EST ECG REPORT - SCANNED 09/21/2012 15:02 EST GLUCOSE, GLUCOMETER Routine 09/17/2012 6 :52 EST documented in this encounter Results * PROCEDURE REPORTS - SCANNED (09/21/2012 15:05 EST) 09/21/2012 15:0 5 EST Narrative 09/21/2012 15:37 EST Procedure Note CURBER, SCAN 2 - 09/21/2012 15:05 EST Scan 2 Fitness Trainer PROCEDURE/MINOR BRIANA GICAL ORDERABLES * ECG REPORT - SCANNED (09/21/2012 15:02 EST) 09/21/2012 15:0 2 EST Narrative 09/21/2012 15:37 EST Procedure Note CURBER, SCAN 2 - 09/21/2012 15:02 EST Scan 2 Fitness Trainer PROCEDURE/MINOR BRIANA GICAL ORDERABLES * GLUCOSE, GLUCOMETER (09/17/2012 6:52 EST) Glucose, Fingerstick 95 70 - 100 mg/dl [facility] Sprayer Machine ID [id number] [facility] Comment:Test Performed by [facility] 09/17/2012 6:52 EST 09/17/2012 6:56 EST Antoinette Schilling MD CHEMISTRY & BLOOD GA S ORDERABLES [facility] [address] [place] [address] documented in this encounter Visit Diagnoses Not on filedocumented in this encounter Administered Medications Inactive Administered Medications - up to 3 most recent administrations Medication Order MAR Action Action Date Dose Rate Site fentanyl citrate (PF) 50 mcg/mL injection 25-100 mcg 25-100 mcg, intravenous, EVERY 5 MIN PRN, Starting on Mon09/17/12 at 0843, Until Mon09/17/12 at 1243, Pain, Routine, Recovery (only) Given 09/17/2012 9:33 EST 50 mcg Given 09/17/2012 8:57 EST 50 mcg Given 09/17/2012 8:44 EST 50 mcg fentanyl citrate (PF) 50 mcg/mL injection 1 dose, Starting on Mon09/17/12 at 0844, Until Mon09/17/12 at 0844 hydrocodone-acetaminophen (LORTAB;VICODIN) 5-500 mg tablet 1-2 Tab 1-2 Tablet, oral, PRN, 2 doses, Starting on Mon09/17/12 at 0840, Until Mon09/17/12 at 1243, Pain, Routine Given 09/17/2012 9:06 EST 2 Tablets lactated ringers (LR) infusion at 25 mL/hr, intravenous, CONTINUOUS, Starting on Mon09/17/12 at 0715, Until Mon09/17/12 at 1243, Routine, Pre-Op DOS Rx Approved New Bag 09/17/2012 7:06 EST 25 mL/hr lactated ringers (LR) infusion at 75 mL/hr, intravenous, CONTINUOUS, Starting on Mon09/17/12 at 0900, Until Mon09/17/12 at 1243, Routine, Recovery (only) Rate Documented 09/17/2012 8:35 EST 75 mL/hr ondansetron (PF) (ZOFRAN) 4 mg/2 mL injection 1 dose, Starting on Mon09/17/12 at 0906, Until Mon09/17/12 at 0909 ondansetron (PF) (ZOFRAN) injection 2 mg 2 mg, intravenous, PRN, 1 dose, Starting on Mon09/17/12 at 0901, Until Mon09/17/12 at 0909, Nausea, Vomiting, Routine, Recovery (only) Given 09/17/2012 9:09 EST 2 mg documented in this encounter Discontinued Medications Medication Sig Discontinue Reason Start Date End Da te naproxen (NAPROSYN) 500 mg tablet Take 1 Tab by mouth 2 times daily with breakfast and dinner. Error 09/03/2012 09/12/2012 predniSONE (DELTASONE) 10 mg tabletIndications:Asth ma with exacerbation Take 1 Tab by mouth daily. Therapy completed 08/29/2012 09/12/2012 ipratropium-albuterol (DUONEB) 0.5 mg-3 mg(2.5 mg base)/3 mL nebulizer solution Take 3 mL by nebulization every 4 hours as needed for Wheezing. Duplicate Therapy 08/25/2012 09/12/2012 nystatin (MYCOSTATIN) 100,000 unit/mL suspensionIndications: Thrush Take 5 mL by mouth 4 times daily. Therapy completed 08/29/2012 09/12/2012 documented as of this encounter Historical Medications * This list may reflect changes made after this encounter. Medication Sig Dispensed Refills Start Date End Date CALCIUM CARBONATE/VITAMIN D3 (CALCIUM WITH VITAMIN D ORAL) Take by mouth daily. added in this encounter Active and Recently Administered Medications Times are shown in EST. Continuous Medication Order 09/15/2012 09/16/2012 09/17/2012 lactated ringers (LR) infusion (CANCELED) at 25 mL/hr, intravenous, CONTINUOUS, Starting on Mon09/17/12 at 0715, Until Mon09/17/12 at 1243, Routine, Pre-Op DOS Rx Approved 0706 (New Bag - Prov ider: Leatha Wing) lactated ringers (LR) infusion (CANCELED) at 75 mL/hr, intravenous, CONTINUOUS, Starting on Mon09/17/12 at 0900, Until Mon09/17/12 at 1243, Routine, Recovery (only) 0835 (Rate Documente d - Provider: Cathryn Licea RN) PRN Medication Order 09/15/2012 09/16/2012 09/17/2012 fentanyl citrate (PF) 50 mcg/mL injection 25-100 mcg (CANCELED) 25-100 mcg, intravenous, EVERY 5 MIN PRN, Starting on Mon09/17/12 at 0843, Until Mon09/17/12 at 1243, Pain, Routine, Recovery (only) 0844 (Given - Provid er: Cathryn Licea RN)0857 (Given - Provider: Cathryn Licea RN)0933 (Given - Provider: Cathryn Licea, RON) hydrocodone-acetaminophen (LORTAB;VICODIN) 5-500 mg tablet 1-2 Tab (CANCELED) 1-2 Tablet, oral, PRN, 2 doses, Starting on Mon09/17/12 at 0840, Until Mon09/17/12 at 1243, Pain, Routine 0906 (Given - Provid er: Cathryn Licea RN) ondansetron (PF) (ZOFRAN) injection 2 mg (COMPLETED) 2 mg, intravenous, PRN, 1 dose, Starting on Mon09/17/12 at 0901, Until Mon09/17/12 at 0909, Nausea, Vomiting, Routine, Recovery (only) 908 (Given - Provid er: Cathryn Licea RN) documented in this encounter Orders Medications Ordered That Max ht Not Have Been Administered Count Last Ordered Date First Ordered Date atropine 0.1 mg/mL 10 mL syringe 0.5 mg 1 1 11/17/2011 diphenhydrAMINE (BENADRYL) i njection 6.25 mg 1 09/17/2012 metoCLOPramide (REGLAN) injection 10 mg 1 1 11/17/2011 naloxone (NARCAN) injection 0.2 mg 1 2011 Nursing Count Last Ordered Date First Orde red Date PLACE SEQUENTIAL COMPRESSION DEVICE 1 09/17 Transfer Count Last Ordered Date First Orde red Date NOTIFY PPS PACU PATIENT DISCHARGE 1 012 NOTIFY PPS PATIENT ARRIVAL IN PACU 1 2011 Discharge Count Last Ordered Date First Orde red Date DISCHARGE PATIENT 1 09/17/2012 documented in this encounter Care Teams Railroad Yard Worker Relationship Specialty Start Date End Date Remedios Mehta MD [address] [place] [id number] PCP - General 02/19/09 01/04/15 documented as of this encounter
--- OUTSIDE RECORDS SUMMARY | 2024-06-24 02:20 | XMS_ITS | Encounter Summary ---
Author Organization [facility] Address [address] [place] [address] Care Team Providers Care Chemical Operator Name Role Phone Remedios Mehta MD Primary Care Provider [phone] Reason for Visit * Reason Comments Appointment Related Encounter Details Date Type Department Care Team (Late st Contact Info) Description 12/18/[address] [phone] Yuliana Barnhart, PT [address] [facility], [facility], [address] [place] [address] Appointment Related Social History Tobacco Use Types [...] encounter Miscellaneous Notes * Telephone Encounter - Dayna Gates - 12/18/2012 1117 EST Called and spoke to patient about cancelling her PT appt today secondary to the therapist being outwith a sick child. Confirmed her next appt. She would like a printout of appts if possible. documented in this encounter Plan of Treatment Not on file documented as of this encounter Visit Diagnoses Not on filedocumented in this encounter Care Teams Chemical Operator Relationship Specialty Start Date End Date Remedios Mehta MD [address] [place] [phone] PCP - General 02/19/09 01/04/15 documented as of this encounter
--- OUTSIDE RECORDS SUMMARY | 2024-06-24 02:20 | XMS_ITS | Encounter Summary ---
Author Organization [facility] Address [address] [place] [address] Care Team Providers Care Payroll Examiner Name Role Phone Remedios Mehta MD Primary Care Provider [phone] Reason for Visit * Reason Onset Date Comments Medications Refill 11/26/2012 Encounter Details Date Type Department Care Team (Late st Contact Info) Description 11/26/2012 Refill [facility] [address] [place] [address] Ana Laura Edge RN Medications Refill Social History Tobacco Use Types [...] Dispensed Refills Start Date End Da te hydrocodone-acetaminophen (LORTAB) 5-500 mg tabletIndications:Arthriti s Take 1 Tab by mouth every 6 hours as needed for Pain (up to 4 pills a day). 120 Tab 3 11/26/2012 12/03/2012 documented in this encounter Miscellaneous Notes * Telephone Encounter - Ana Laura Edge RN - 11/26/2012 1618 EST Script for hydrocodone has been called in documented in this encounter Plan of Treatment Not on file documented as of this encounter Visit Diagnoses Diagnosis Arthropathy- Primary Arthropathy, unspecified, site unspecified Arthritis Arthropathy, unspecified, site unspecified documented in this encounter Discontinued Medications Medication Sig Discontinue Reason Start Date End Da te hydrocodone-acetaminophe n (LORTAB;VICODIN) 5-500 mg tabletIndications:Arthri tis Take 1 Tab by mouth every 6 hours as needed for Pain (up to 4 pills a day). Reorder 06/04/2012 11/26/2012 documented as of this encounter Care Teams Payroll Examiner Relationship Specialty Start Date End Date Remedios Mehta MD [address] [place] [id number] PCP - General 02/19/09 01/04/15 documented as of this encounter
--- OUTSIDE RECORDS SUMMARY | 2024-06-24 02:20 | XMS_ITS | Encounter Summary ---
Author Organization [facility] Address [address] [place] [address] Care Team Providers Care Diesel Retrofit Designer Name Role Phone Remedios Mehta MD Primary Care Provider +1 [phone] Reason for Visit * Reason Comments Community Health Team Encounter Details Date Type Department Care Team (Late st Contact Info) Description 01/14/2013 Community Health Team [address], [address] [place] [address] Nelda Conley, RD [address] [place] [address] Social History Tobacco Use Types Packs/Day Years [...] as of this encounter Progress Notes * Nelda Conley - 01/14/2013 1620 EDT Pt did not show for nutrition follow-up on 01/14/13. RD LVM and provided CHT contact information to reschedule appointment. Time spent: 2 min Referral: N/A Follow-up: Admin to follow-up in 2 wks if pt doesn't call back Status: Active Nelda Conley, MS, RD, CD Clinical Dietitian, CHT documented in this encounter Plan of Treatment Not on file documented as of this encounter Visit Diagnoses Not on filedocumented in this encounter Care Teams Diesel Retrofit Designer Relationship Specialty Start Date End Date Remedios Mehta MD [address] [place] [phone] PCP - General 02/19/09 01/04/15 documented as of this encounter
--- OUTSIDE RECORDS SUMMARY | 2024-06-24 02:20 | XMS_ITS | Encounter Summary ---
Author Organization [facility] Address [address] [place] [address] Care Team Providers Care Retrimmer Name Role Phone Remedios Mehta MD Primary Care Provider + -[phone] Encounter Details Date Type Department Care Team (Late st Contact Info) Description 09/06/2012 9:10 EST Immunization [address] [address] Unknown, Provider, Flu, Shot Need for influenza vaccine (Primary Dx) Discharge Disposition: Auto Discharge Social History Tobacco [...] Destination Auto Discharge documented in this encounter Plan of Treatment Not on file documented as of this encounter Visit Diagnoses Diagnosis Need for influenza vaccine- Primary Need for prophylactic vaccination and inoculation against influenza documented in this encounter Care Teams Retrimmer Relationship Specialty Start Date End Date Remedios Mehta MD [address] [place] [phone] PCP - General 02/19/09 01/04/15 documented as of this encounter
--- OUTSIDE RECORDS SUMMARY | 2024-06-24 02:20 | XMS_ITS | Encounter Summary ---
Author Organization [facility] Address [address] [place] [address] Care Team Providers Care Mill Set Up Name Role Phone Remedios Mehta MD Primary Care Provider [phone] [phone] Reason for Visit * Reason Onset Date Comments Appointment Related 12/10/2012 Encounter Details Date Type Department Care Team (Late st Contact Info) Description 12/10/2012 Telephone [facility] Rehabilitation Therapy - Medical Office Building [address] [place] [address] Remedios Mehta MD [address] [place] [phone] Appointment Related Social History Tobacco Use [...] encounter Miscellaneous Notes * Telephone Encounter - Emerald Nguyen 12/10/2012 1036 EST MEDICAL OFFICE BUILDING ([facility]) [address] [facility] [address] Phone: [phone] Fax: [phone] Telephone Intake Information for Scheduling NEW Patients for Therapy Script/referral IN [place] Referring Provider: JACKIE Diagnosis: KNEE PAIN Primary Insurance: PCPLUS If Medicaid: Have you been seen in therapy since October first of this year? No Notes/other: PT TO COME IN EARLY FOR PAPERWORK Emerald Nguyen 12/10/2012 documented in this encounter Plan of Treatment Not on file documented as of this encounter Visit Diagnoses Not on filedocumented in this encounter Care Teams Mill Set Up Relationship Specialty Start Date End Date Remedios Mehta MD [address] [place] [phone] PCP - General 02/19/09 01/04/15 documented as of this encounter
--- OUTSIDE RECORDS SUMMARY | 2024-06-24 02:20 | XMS_ITS | Encounter Summary ---
Author Organization [facility] Address [address] [place] [address] Care Team Providers Care Chief Port Director Name Role Phone Remedios Mehta MD Primary Care Provider [phone] [phone] Reason for Visit * Reason Comments Community Health Team Encounter Details Date Type Department Care Team (Late st Contact Info) Description 01/30/2013 Community Health Team [address], [address] [place] [address] [place] [address] Social History Tobacco Use Types Packs/Day Years [...] encounter Progress Notes * Shilpi Forte - 01/30/2013 1040 EDT Per Nelda Conley RD, CHT called patient to ask if she'd like to reschedule, patient asked that wecall her back in two weeks when she's got her pain under control. documented in this encounter Plan of Treatment Not on file documented as of this encounter Visit Diagnoses Not on filedocumented in this encounter Care Teams Chief Port Director Relationship Specialty Start Date End Date Remedios Mehta MD [address] [place] [phone] PCP - General 02/19/09 01/04/15 documented as of this encounter
--- OUTSIDE RECORDS SUMMARY | 2024-06-24 02:20 | XMS_ITS | Encounter Summary ---
Author Organization [facility] Address [address] [place] [address] Care Team Providers Care Continuous Weld Pipe Mill Supervisor Name Role Phone Remedios Mehta MD Primary Care Provider [phone] [phone] Reason for Visit * Reason Onset Date Comments Results 01/16/2013 Encounter Details Date Type Department Care Team (Late st Contact Info) Description 01/16/2013 Telephone [facility] Interventional Pain [address] [place], [place] [id number] Jaimie Byrne RN Results Social History Tobacco [...] Telephone Encounter - Jaimie Byrne RN - 01/16/2013 0845 EDT RN called pt for results of injection Date and type of procedure:01/15/13 Cervical facet joint injecgtion, C3-C4 bilateral Provider: Kye Hours of relief:3 hrs % of relief:30% Next appointment: no appt. Pt will call in 2 weeks with % of relief with steroid. * Telephone Encounter - Jaimie Byrne RN - 01/16/201345 EDT Message copied by JAIMIE BYRNE on MonJan 16, 2013 0845 ------ Message from: MARIANNE PAZ Created: [facility] Jan 15, 2013 1053 Regarding: results Contact: bilat Facet Diagnostic Block done on: 01/15/13 Provider: kye Levels: cerv one level Call back number: [phone] documented in this encounter Plan of Treatment Not on file documented as of this encounter Visit Diagnoses Not on filedocumented in this encounter Care Teams Continuous Weld Pipe Mill Supervisor Relationship Specialty Start Date End Date Remedios Mehta MD [address] [place] [phone] PCP - General 02/19/09 01/04/15 documented as of this encounter
--- OUTSIDE RECORDS SUMMARY | 2024-06-24 02:20 | XMS_ITS | Encounter Summary ---
Author Organization [facility] Address [address] [place] [address] Care Team Providers Care Credit Compliance Officer Name Role Phone Remedios Mehta MD Primary Care Provider +1 [phone] Reason for Referral * Consult (Routine/Next Available) - Closed Specialty Diagnoses / Procedures Referred By Joao proctor Referred To Contact Diagnoses Obesity, Class III, BMI 40-49.9 (morbid obesity) ([facility]) Diabetes mellitus type II, controlled ([facility]) Hyperlipidemia Remedios Mehta MD [address] [place] [phone] Referral ID Status Reason Start Date Expiration Date V isits Requested Visits Authorized [id number] Closed Specialty Services Required 12/17/2012 1 1 Question Answer What areas would you like the CHT to focus on? Nutrition Help, Exercise Advice, Healthier Living Workshop Comments As we discussed in your visit today, someone will be contacting you from the Community Health Team to schedule an appointment with you. If you do not hear from the CHT within a week please call the Community Health Team at [phone]. Encounter Details Date Type Department Care Team (Late st Contact Info) Description 12/17/2012 Orders Only [facility] Medicine [address] [address] Remedios Mehta MD [address] [place] [phone] Obesity, Class III, BMI 40-49.9 (morbid obesity) ([facility]) ([facility]) (Primary Dx); Diabetes mellitus type II, controlled ([facility]) ([facility]); Hyperlipidemia Social History Tobacco Use Types Packs/Day Years [...] CONSULT COMMUNITY HEALTH TEAM Outpatient Referral Routine Obesity, Class III, BMI 40-49.9 (morbid obesity) ([facility]) ([facility]) Diabetes mellitus type II, controlled ([facility]) ([facility]) Hyperlipidemia Ordered: 12/17/2012 documented as of this encounter Visit Diagnoses Diagnosis Obesity, Class III, BMI 40-49.9 (morbid obesity) ([facility])- Primary Morbid obesity Diabetes mellitus type II, controlled ([facility]) Type II or unspecified type diabetes mellitus without mention of complication, not stated as uncontrolled Hyperlipidemia Other and unspecified hyperlipidemia documented in this encounter Care Teams Credit Compliance Officer Relationship Specialty Start Date End Date Remedios Mehta MD [address] [place] [phone] PCP - General 02/19/09 01/04/15 documented as of this encounter
--- OUTSIDE RECORDS SUMMARY | 2024-06-24 02:20 | XMS_ITS | Encounter Summary ---
Author Organization [facility] Address [address] [place] [address] Care Team Providers Care Emd Teacher Name Role Phone Remedios Mehta MD Primary Care Provider [phone] [phone] Encounter Details Date Type Department Care Team (Late st Contact Info) Description 09/13/2012 11:27 EST - 09/13/2012 23:59 [facility] Hospital Encounter [address] [address] Dayna Patterson, LICENSED PROSTHETIST/ORTHOTIST [address] [place], [place] [phone] Discharge Disposition: Home or Self Care Social [...] (LOVENOX) 60 mg/0.6 mL injectionIndications :Hypercoagulable state ([facility]) Inject 60 mg into the skin daily. 10 Syringe 0 09/04/2012 12/03/2012 fluocinonide (LIDEX) 0.05 % cream Apply to affect area(s) as directed. 60 g 3 03/23/2012 06/05/2013 fluticasone (FLONASE) 50 mcg/actuation nasal sprayIndications:Ast hma,Hyperlipidemia,N eed for Tdap vaccination,Abdomina l discomfort,IBS (irritable bowel syndrome),GERD (gastroesophageal reflux disease) Instill 1 [place] into both nostrils daily. 1 Bottle 5 [...] Code Departure Means Destination Home or Self Nursing Home documented in this encounter Plan of Treatment Not on file documented as of this encounter Procedures Procedure Name Priority Date/Time Associated Diagnosis Comments CHEST PA AND LATERAL 09/13/2012 12:10 EST documented in this encounter Results * CHEST PA AND LATERAL (09/13/2012 12:10 EST) Anatomical Region Laterality Modality Other 09/13/2012 12:1 0 EST 09/13/2012 12:26 EST Narrative 09/13/2012 12:26 EST PA and lateral chest September 13, 2012 History: Preop, postmenopausal bleeding, pelvic pain, asthma, recent pneumonia There is a focus of airspace disease in the lingula which may represent residual pneumonia. There are calcified granulomata in the right midlung. No other focal pulmonary process is identified. The cardiac silhouette and pulmonary vascularity are normal. There is no evidence of pleural effusion or pneumothorax. No significant bony abnormality is appreciated. Procedure Note 09/13/2012 PA and lateral chest September 13, 2012 History: Preop, postmenopausal bleeding, pelvic pain, asthma, recent pneumonia There is a focus of airspace disease in the lingula which may represent residual pneumonia. There are calcified granulomata in the right midlung. No other focal pulmonary process is identified. The cardiac silhouette and pulmonary vascularity are normal. There is no evidence of pleural effusion or pneumothorax. No significant bony abnormality is appreciated. Antoinette Schilling MD IMG DIAGNOSTIC IMAGI NG ORDERABLES documented in this encounter Visit Diagnoses Not on filedocumented in this encounter Care Teams Emd Teacher Relationship Specialty Start Date End Date Remedios Mehta MD [address] [place] [phone] PCP - General 02/19/09 01/04/15 documented as of this encounter
--- OUTSIDE RECORDS SUMMARY | 2024-06-24 02:20 | XMS_ITS | Encounter Summary ---
Author Organization [facility] Address [address] [place] [address] Care Team Providers Care Print Controller Name Role Phone Keshawn Mehta MD Primary Care Provider [phone] [phone] Encounter Details Date Type Department Care Team (Late st Contact Info) Description 09/17/2012 Results Only [facility] Laboratory Services - [facility] ([facility] [address] [place] [phone] Kasandra Ambrose MD [address] [place] [phone] Social History Tobacco Use Types [...] Priority Date/Time Associated Diagnosis Comments SURGICAL PATHOLOGY Routine 09/17/2012 0:00 EST documented in this encounter Results * SURGICAL PATHOLOGY (09/17/2012 0:00 EST) Pathology Report: SURGICAL PATHOLOGY REPORT Reports generated via electronic interface contain original data; however they are lacking the format of the original report. Caution should be taken when reading/interpreting unformatted reports. Name: ? CHERELLE HUSAIN ? Accession #: ? [id number] ? : ? 1960 (Age: 52) ??F ? Collect Date: ? 09/17/2012 ? Location: ? [facility] ? Receive Date: ? 09/17/2012 ? Provider: KASANDRA AMBROSE MD Copy to: KESHAWN SUÁREZ MD ? Final Pathologic Diagnosis: A. ?Endocervix, curettage: 1. ?Squamous epithelium with acute inflammation and reactive atypia. See comment. 2. ? Endocervical tissue with squamous metaplasia. B. ?Endometrium, polyp, curettage: 1. ?Endometrial polyp, hyperplastic-type. 2. ? No cytologic atypia. ?? Comment: ? Immunohistochemical study has been performed on (A) to characterize the squamous atypia. The immunoreactivity pattern support interpretation of reactive atypia, however continued close clinical follow-up is advised. Block ?Antibody (clone) ? Result A ?P16 (E6H4TM, [facility]) ?positive in rare cells ?MIB-1 (Ki-67)(rabbit monoclonal (SP6), [facility]) ? positive in less than 10% of cells, in ? basal/parabasal distribution This case has been reviewed by Dr. Georgie Butler in consultation, and also has been presented at the intradepartmental consultation conference. ??(Dr. Frazier)/[place] NOTE: ??One or more of the reagents used in immunohistochemical testing in this case may not have been cleared or approved by the U.S. Food and Drug Administration (FDA). ??The FDA has determined that such clearance or approval is not necessary. ??These tests are used for clinical purposes. ??They should not be regarded as investigational or for research. ??These reagents' performance characteristics have been determined by [facility]. ??This laboratory is certified under the Clinical Laboratory Improvement Amendments of 1988 (CLIA-88) as qualified to perform high complexity clinical laboratory testing. ?? Document reviewed and electronically signed by: Marci Larios MD Report ??Date: 09/24/2012 15:21 By the signature above, the attending physician certifies that he/she has personally conducted a gross and/or microscopic examination of the described specimens and rendered or confirmed the above diagnosis. Specimen(s) Received: A. ?ECC B. ? EMC and polyp Clinical History: ? Postmenopausal bleeding Gross Description: ? Received in normal saline labelled Cherelle Husain and A-ECC is a 1.5 x 1.2 x 0.3 cm aggregate of light monahan-red and white, hyperemic, mucinous material which is submitted entirely as (A). Received in normal saline labelled Cherelle Husain and B-EMC and polyp is a 1.7 x 1.2 x 0.3 cm white to focally light red, firm piece of tissue. ??Received separately in the specimen container is a 2.0 x 1.0 x 0.3 cm aggregate of blood clot and red-tinged, mucinous material. ??The largest piece of tissue described first is bisected and submitted entirely as (B1) while the remaining specimen is submitted as (B2). ??(Ivone Simons)/[facility] End of Report PARKER LAMBERT 09/17/2012 09/17/2012 11: 03 EST Kasandra Ambrose MD PATHOLOGY ORDERABLES Performing Organization Address City/State/[facility] Co de Phone Number PARKER LAMBERT [address] [place] [address] documented in this encounter Visit Diagnoses Not on filedocumented in this encounter Care Teams Print Controller Relationship Specialty Start Date End Date Keshawn Mehta MD [address] [place] [phone] PCP - General 02/19/09 01/04/15 documented as of this encounter
--- OUTSIDE RECORDS SUMMARY | 2024-06-24 02:20 | XMS_ITS | Encounter Summary ---
Author Organization [facility] Address [address] [place] [address] Care Team Providers Care Rewriter Name Role Phone Remedios Mehta MD Primary Care Provider [phone] [phone] Reason for Visit * Reason Comments Community Health Team Encounter Details Date Type Department Care Team (Late st Contact Info) Description 12/31/2012 Community Health Team [address], [address] [place] [address] Nleda Conley, RD [address] [place] [address] Social History Tobacco Use Types Packs/Day Years [...] encounter Progress Notes * Nelda Conley - 12/31/2012 1527 EST Initial nutrition consult completed 12/31/12. Surveys not completed due to limited time will complete01/07/13. Cherelle stated that she wants to lose weight. She provided her frustration with her inability to be more active due to her recent knee pain and on-going struggle with fibromyalgia. She reported that sheis now participating in aquatic PT 1x/wk, which she will work up to multiple x/wk. She provided a food record which compromised of 2-3 meals and 3 snacks. She reported that she typically doesn't eat breakfast until 10 am but wakes at 7am. She stated that she often takes her medication with coffee and water, but will eat breakfast around 11 am. She reported episodic hypoglycemia typically in the morning and afternoon. Meal times is dependent on level of pain; she currently resides with a roommate who prepares some meals. She stated that her roommate's meals typically lack fruits and vegetables, and contain highly processed foods as well as sweets (i.e., cake, pie, etc.). She stated this is asignificant issue for her as she feels she is unable to decline these foods without offending her roommate. Pertinent labs reviewed. Medical Nutrition Therapy provided on heart healthy diet including meal planning and portion sizes. Recommended calorie intake 1,300 (based on ht, wt, age, and activity level-for wt loss) including 6 oz grain, 2.5 cups vegetables, 1.5 cups fruit, 3 cups (low-fat) dairy, and5 oz protein. Discussed importance of eating a small breakfast, am snack, lunch with vegetables, pmsnack and a small dinner. Handouts provided on sample 1,300 menu and recommended foods. Briefly reviewed carb counting and portion sizes of foods containing carbohydrates. Meal planning reviewed using MyPlate. Goals: 1. Aiming for 2 servings of vegetables at lunch and dinner. 2. Eating a small breakfast (toast with 1 tbsp peanut butter, fruit with yogurt, etc.). 3. Choose 2 days/wk to have a sweet dessert. Time spent: 60 min Referral: N/A Follow-up: Status: Active Nelda Conley, MS, RD, CD Clinical Dietitian, CHT documented in this encounter Plan of Treatment Not on file documented as of this encounter Visit Diagnoses Not on filedocumented in this encounter Care Teams Rewriter Relationship Specialty Start Date End Date Remedios Mehta MD [address] [place] [phone] PCP - General 02/19/09 01/04/15 documented as of this encounter
--- OUTSIDE RECORDS SUMMARY | 2024-06-24 02:20 | XMS_ITS | Encounter Summary ---
Author Organization [facility] Address [address] [place] [address] Care Team Providers Care Digital Advertising Analyst Name Role Phone Remedios Mehta MD Primary Care Provider [phone] [phone] Reason for Visit * Reason Onset Date Comments Medications Refill 12/20/2012 Encounter Details Date Type Department Care Team (Late st Contact Info) Description 12/20/[address] [address] Remedios Mehta MD [address] [place] [phone] Medications Refill Social History Tobacco Use [...] daily. 180 Tab 1 12/20/2012 03/27/2013 documented in this encounter Miscellaneous Notes * Telephone Encounter - Arlen Pollock - 12/20/2012 1615 EST Medication Requested - zafor;ilast NEEDS 90 DAY SUPPLY PER INS. Last Refill Date - 10.10 Last Visit Date - 2 Next Visit Date - 3 Is patient out of medication? Yes documented in this encounter Plan of Treatment Not on file documented as of this encounter Visit Diagnoses Diagnosis Asthma- Primary Unspecified asthma Hyperlipidemia Other and unspecified hyperlipidemia Need for Tdap vaccination Need for prophylactic vaccination with combined zdcxhqjjsr-sygubbx-bgtqqrtbr (DTP) vaccine Abdominal discomfort Abdominal pain, unspecified site IBS (irritable bowel syndrome) Irritable bowel syndrome GERD (gastroesophageal reflux disease) Esophageal reflux documented in this encounter Discontinued Medications Medication Sig Discontinue Reason Start Date End Da te zafirlukast (ACCOLATE) 20 mg tabletIndications:Asthma, Hyperlipidemia,Need for Tdap vaccination,Abdominal discomfort,IBS (irritable bowel syndrome),GERD (gastroesophageal reflux disease) Take 1 Tab by mouth 2 times daily. Reorder 10/05/2012 12/20/2012 documented as of this encounter Care Teams Digital Advertising Analyst Relationship Specialty Start Date End Date Remedios Mehta MD [address] [place] [phone] PCP - General 02/19/09 01/04/15 documented as of this encounter
--- OUTSIDE RECORDS SUMMARY | 2024-06-24 02:20 | XMS_ITS | Encounter Summary ---
Author Organization [facility] Address [address] [place] [address] Care Team Providers Care Electronics Maintenance Technician Name Role Phone Remedios Mehta MD Primary Care Provider [phone] [phone] Encounter Details Date Type Department Care Team (Latest Contact Info) Description 01/04/2013 13:37 EST - 01/04/2013 23:59 EST Hospital Encounter [facility] - Other [address] [place] [address] Remedios Mehta MD [address] [place] [phone] Discharge Disposition: Home or Self Care [...] bowel syndrome),GERD (gastroesophageal reflux disease) Instill 1 [place] into both nostrils daily. 1 Bottle 5 07/16/2012 06/05/2013 hydrocodone-acetamino phen (LORTAB) 5-500 mg tabletIndications:Art hritis Take 1 Tab by mouth every 6 hours as needed for Pain (up to 4 pills a day). 120 Tab 3 12/03/2012 02/14/2013 hydroxychloroquine (PLAQUENIL) 200 mg tabletIndications:Art hropathy,Arthritis Take 1 Tab by mouth 2 times daily. 60 Tab 11 06/04/2012 01/30/2013 ketoconazole (NIZORAL) 2 % creamIndications:Rash Apply topically [...] 4 04/04/2012 06/05/2013 omeprazole (PRILOSEC) 20 mg capsule Once daily before a meal. 30 Cap 11 12/27/2012 01/31/2013 trazodone (DESYREL) 100 mg tabletIndications:Lyubov lgia and [...] Code Departure Means Destination Home or Self [place] documented in this encounter Plan of Treatment Not on file documented as of this encounter Visit Diagnoses Not on filedocumented in this encounter Care Teams Electronics Maintenance Technician Relationship Specialty Start Date End Date Remedios Mehta MD [address] [place] [phone] PCP - General 02/19/09 01/04/15 documented as of this encounter
--- OUTSIDE RECORDS SUMMARY | 2024-06-24 02:20 | XMS_ITS | Encounter Summary ---
Author Organization [facility] Address [address] [place] [address] Care Team Providers Care Senior Medical Transcriptionist Name Role Phone Remedios Mehta MD Primary Care Provider [phone] Reason for Visit * Reason Onset Date Comments Physical Therapy 01/09/2013 Encounter Details Date Type Department Care Team (Late st Contact Info) Description 01/09/[address] [address] Therapy, Physical Physical Therapy Social [...] Miscellaneous Notes * Telephone Encounter - Dayna Platt Reynaldo - 01/09/2013 0730 EDT AQUATIC PHYSICAL THERAPY [address] [place] [address] Ms. Husain called to cancel today's 9:00 aquatic physical therapy appointment due to car problems.Date/time of next appointment has been confirmed. Dayna Platt 01/09/2013 7:30 documented in this encounter Plan of Treatment Not on file documented as of this encounter Visit Diagnoses Not on filedocumented in this encounter Care Teams Senior Medical Transcriptionist Relationship Specialty Start Date End Date Remedios Mehta MD [address] [place] [address] [phone] PCP - General 02/19/09 01/04/15 documented as of this encounter
--- OUTSIDE RECORDS SUMMARY | 2024-06-24 02:20 | XMS_ITS | Encounter Summary ---
Author Organization [facility] Address [address] [place] [address] Care Team Providers Care Automobile Radio Repairer Name Role Phone Remedios Mehta MD Primary Care Provider [phone] Reason for Visit * Reason Comments Community Health Team Encounter Details Date Type Department Care Team (Late st Contact Info) Description 01/07/2013 Community Health Team [address], [address] [place] [address] Nelda Conley, RD [address] [place] [address] Social History Tobacco Use Types Packs/Day Years [...] encounter Progress Notes * Shilpi Forte - 01/07/2013 1214 EDT ..Patient called the Community Health Team to reschedule appointment with Nelda Conley RD, CHT from 01/07 to January 14 at 2:30 pm. documented in this encounter Plan of Treatment Not on file documented as of this encounter Visit Diagnoses Not on filedocumented in this encounter Care Teams Automobile Radio Repairer Relationship Specialty Start Date End Date Remedios Mehta MD [address] [place] [phone] PCP - General 02/19/09 01/04/15 documented as of this encounter
--- OUTSIDE RECORDS SUMMARY | 2024-06-24 02:20 | XMS_ITS | Encounter Summary ---
Author Organization [facility] Address [address] [place] [address] Care Team Providers Care Barge Engineer Name Role Phone Remedios Mehta MD Primary Care Provider + [phone] Reason for Visit * Reason Comments Shortness of Breath Asthma Nicotine Dependence Gastroesophageal Reflux Encounter Details Date Type Department Care Team (Late st Contact Info) Description 12/12/2012 16:30 EST Office Visit [facility] Pulmonology & Critical [facility] - [facility] [address] [place], [place] [id number] Unknown, ProviderMD Chance Figueroa MD [address] [place] [address] [phone] Roberto Hodges MD [address] [place] [address] Asthma (Primary Dx); BERNARD (dyspnea on exertion); GERD (gastroesophageal reflux disease); Morbid obesity ([facility]); Allergic rhinitis Discharge Disposition: Auto Discharge Social History Tobacco [...] Sign Reading Time Taken Comments Blood Pressure 124/72 12/12/2012 1607 EST Pulse 61 12/12/2012 1607 EST Temperature 36.7 ??C (98 ??F) 12/12/2012 1607 EST Respiratory Rate 14 12/12/2012 1607 EST Oxygen Saturation 98% 12/12/2012 1607 EST Inhaled Oxygen Concentration - - Weight 98.2 kg (216 lb 7.2 oz) 12/12/[address] Height 153.8 cm (5' 0.55) 12/12/2012 1607 EST Body Mass Index 41.51 12/12/2012 1607 EST documented in this encounter Functional Status Cognitive Status Response Date of Assessm ent Because of a physical, menta l, or emotional condition, do you have serious difficulty concentrating, remembering, or making decisions? (5 years old or older) Yes 04/15/2010 documented as of this encounter Patient Instructions * Patient Instructions* Roberto Hodges MD - 12/12/2012 17:10 EST 1. Continue symbicort twice daily 2. Continue albuterol as needed 3. Stop using protonix 4. Prilosec 40mg twice day 5. We will schedule a methacholline challenge in 1-2 weeks documented in this encounter Ordered Prescriptions Prescription Sig Dispensed Refills Start Date End Da te omeprazole (PRILOSEC) 20 mg capsuleIndications:GERD (gastroesophageal reflux disease) Take 2 Caps by mouth 2 times daily. 60 Cap 4 12/12/2012 12/25/2012 documented in this encounter Discharge Disposition Disposition Code Departure Means Destination Auto Discharge documented in this encounter Progress Notes * Roberto Hodges MD - 12/13/2012 1511 EST DIVISION OF PULMONOLOGY PROGRESS/FOLLOWUP NOTE - 12/12/2012 Remedios Strong MD [address] [place] [address] Strong: I had the pleasure of following up with Ms Husain in pulmonary clinic today with my attending, Dr Figueroa. As you know, Ms Husain is a 52-year-old female with a past medical history significant for morbid obesity, gastroesophageal reflux, asthma and a history of vocal cord dysfunction. She is being followed here in clinic since 2008 for treatment of her asthma and has been on maximum therapy including Advair 500/50, which was discontinued due to insurance, and she is now using Symbicort, zafirlukast and albuterol with no significant improvement in her symptoms. Ms Husain returns to clinic and states that there has been no significant change in her underlying asthma. She feels as though she continues to have wheezing on a daily basis 2 to 3 times per day, which is only intermittently relieved with the use of albuterol inhaler. She has not had any episodes of wheezing from her vocal cord dysfunction and she states that she is very able to differentiate between both her vocal cord dysfunction and asthma. She continues to cough and has nocturnal symptoms. Her cough is mostly dry. She denies any fever or any chills. She also has dyspnea on exertion and continues to have shortness of breath after doing minimal physical activity including climbing 3 to 4 stairs or walking 1 to 2 blocks on a flat surface. She continues to struggle with her weight and has difficulty in weight reduction and also reports that her chronic pain is not well controlled, including her fibromyalgia, back pain and hip pain. She also has significant gastroesophageal reflux, for which she has been treated by gastroenterology with a proton pump inhibitor over the last few years. She has implemented conservative measures including not eating 3 to 4 hours before bedtime, elevating the head of her bed and not smoking or using alcohol. Despite this, she continues to have reflux symptoms including acidic taste in her mouth at least on a daily basis. She notes that her cough is worse when she lies flat at bedtime. She is using her Symbicort at this time and states that she has no significant relief in her symptoms. A 12-point review of systems is negative except for as noted in the HPI. Past medical history, surgical history and allergies were reviewed and are unchanged since her lastvisit. Objective: Vital signs: Blood pressure 124/72, pulse 61, respiratory rate 14, temperature 36.7, andsaturation 98%. The patient was alert and oriented, in no obvious cardiopulmonary distress. Her mucous membranes are pink and moist. She was anicteric and afebrile. Oropharynx was clear with no evidence of thrush. Neck was supple with no masses palpable. JVD was not appreciated. Cardiovascular exam: S1 and S2 were distant with no murmurs heard. Respiratory exam: Air entry was equal and bilateral.There were no wheezes, crackles or rhonchi. With expiration she had several episodes of coughing. Abdominal exam was soft, obese but nontender. No masses were palpable. Bowel sounds were present. Neurological exam was grossly intact. Extremities showed trace pitting edema bilaterally. There was no clubbing or cyanosis. Data: Spirometry performed today showed an FEV1 to FVC ratio of 93% with an FEV1 of 1.48, which is 60% predicted, and an FVC of 4.98, which is 64% predicted. Her total lung capacity was normal at 92%predicted and her residual volume was normal at 122% predicted. The patient had severe difficulty in performing spirometry today including all deep inspiratory efforts with questionable glottic closure. A DLCO was not able to be performed due to the patient coughing. Her airway resistance was elevated at 0.09; however, this was in the setting of severe coughing while performing the spirometry. Assessment: In summary, Ms Husain is a 52-year-old female with a past medical history significant for gastroesophageal reflux, vocal cord dysfunction and morbid obesity who has had symptoms of dyspnea on exertion and wheezing associated with chronic cough. This has been attributed in the past to asthma, but we do not have any spirometry, which shows any evidence of airflow limitation. Her dyspnea on exertion and her cough are both multifactorial. They are related to her morbid obesity and deconditioning in addition to the fact that she has significant gastroesophageal reflux, which is contributing to her chronic cough and may present like asthma-like symptoms. We are unable to get proper lung volumes and a DLCO due to the fact that she could not perform these maneuvers from coughing. I do think a previous workup for her underlying pulmonary condition included a CT of her chest, which showed mild diffuse bronchial wall thickening with numerous calcified pulmonary nodules consistent with prior granulomatous disease and there were no other significant pulmonary or lung parenchymal disease. She also had an echocardiogram to screen for pulmonary hypertension, which showed a normal ejection fraction of 60% to 65%. However, her PA systolic pressures were not accurately estimated. At this time, I do think that it is necessary for us to determine whether or not Ms Husain actually has underlying asthma as her symptoms may be all due to vocal cord dysfunction and her chronic cough due to gastroesophageal reflux disease. A methacholine challenge will help us determine the next steps in treatment. Plan: 1. For her asthma, at this time I advised her to continue with her Symbicort, Accolate, and albuterol inhaler as needed. We will schedule a methacholine challenge in the next 1 to 2 weeks and following this we will decide what changes to make in her inhaler regimen. She notes that in the past Advair provided the most symptomatic relief and this was discontinued due to a change in her insurance. If indeed she does have asthma we will then make this change and appeal to her insurance company thatAdvair provided the best treatment for her underlying asthma. 2. For gastroesophageal reflux, she has been on Protonix for approximately 3 years with no significant relief despite conservative measures. We will try b.i.d. Prilosec to see if this makes any difference. If she does not have any significant relief in her heartburn and reflux symptoms, I will refer her to Dr Mcleod of gastroenterology for further evaluation. 3. I advised Ms Husain to continue with efforts for diet modification and exercise to assist in weight loss. 4. Her Pneumovax and influenza vaccine are up to date. 5. I will follow up with Ms Husain following her methacholine challenge and make further recommendations at this time. Thank you for allowing me to participate in the care of Ms Husain. Sincerely, I saw and examined the patient with the resident/fellow. I agree with the findings and plan of caredocumented in the resident's/fellow's note. Electronically Signed by Chance Figueroa MD 12/14/2012 13:10 HERMINIA Cruz Chance Figueroa MD - HERMINIA Cruz - YELENA Job ID: Doc ID: [id number] Ext Doc ID: [id number] cc: Remedios Strong MD * Roberto Hodges MD - 12/13/2012 0938 EST This office note has been dictated. documented in this encounter Procedure Notes * SUPERVISOR IRRIGATION, SCAN 2 - 12/29/2012 1030 ESTAssociated Order(s): PULMONARY FUNCTION LAB REPORT - SCANNED documented in this encounter Plan of Treatment Not on file documented as of this encounter Procedures Procedure Name Priority Date/Time Associated Diagnosis Comments PULMONARY FUNCTION REPORT - SCANNED 12/29/2012 10:30 EST documented in this encounter Results * PULMONARY FUNCTION LAB REPORT - SCANNED (12/29/2012 10:30 EST) 12/29/2012 10:3 0 EST Narrative 12/29/2012 10:32 EST Procedure Note SUPERVISOR IRRIGATION, SCAN 2 - 12/29/2012 10:30 EST Scan 2 Help Desk Manager PROCEDURE/MINOR BRIANA GICAL ORDERABLES documented in this encounter Visit Diagnoses Diagnosis Asthma- Primary Unspecified asthma BERNARD (dyspnea on exertion) Other dyspnea and respiratory abnormality GERD (gastroesophageal reflux disease) Esophageal reflux Morbid obesity ([facility]) Morbid obesity Allergic rhinitis Allergic rhinitis, cause unspecified documented in this encounter Discontinued Medications Medication Sig Discontinue Reason Start Date End Da te pantoprazole (PROTONIX) 40 mg tabletIndications:GERD (gastroesophageal reflux disease) Take 1 Tab by mouth daily. 06/07/2012 12/12/2012 documented as of this encounter Care Teams Barge Engineer Relationship Specialty Start Date End Date Remedios Mehta MD [address] [place] [phone] PCP - General 02/19/09 01/04/15 documented as of this encounter
--- OUTSIDE RECORDS SUMMARY | 2024-06-24 02:20 | XMS_ITS | Encounter Summary ---
Author Organization [facility] Address [address] [place] [address] Care Team Providers Care Case Management Director Name Role Phone Remedios Mehta MD Primary Care Provider [phone] Reason for Visit * Reason Onset Date Comments Physical Therapy 01/24/2013 Encounter Details Date Type Department Care Team (Late st Contact Info) Description 01/24/[address] [address] Therapy, Physical Physical Therapy Social [...] Telephone Encounter - Dayna Platt Reynaldo - 01/24/2013 1157 EDT AQUATIC PHYSICAL THERAPY [address] [place] [phone] Ms. Husain was called to an aquatic therapy appointment for Monday01/25/13 @2pm. A message was left on her answering machine with our phone number to call. Dayna Platt 01/24/2013 11:57 documented in this encounter Plan of Treatment Not on file documented as of this encounter Visit Diagnoses Not on filedocumented in this encounter Care Teams Case Management Director Relationship Specialty Start Date End Date Remedios Mehta MD [address] [place] [phone] PCP - General 02/19/09 01/04/15 documented as of this encounter
--- OUTSIDE RECORDS SUMMARY | 2024-06-24 02:20 | XMS_ITS | Encounter Summary ---
Author Organization [facility] Address [address] [place] [address] Care Team Providers Care Print Machine Operator Name Role Phone Remedios Mehta MD Primary Care Provider + [phone] Reason for Referral * Other Type (Routine/Next Available) - Closed Specialty Diagnoses / Procedures [facility] Referred To Contact Diagnoses Encounter for long-term (current) use of other medications Psoriatic arthropathy ([facility]) Yovana Callejas MD [address] [facility] [address] [place] [address] Referral ID Status Reason Start Date Expiration Date V isits Requested Visits Authorized [id number] Closed Other 01/23/2013 1 1 Question Answer Medication to be Prior Authorized: prior auth for Enbrel for psoriatic arthritis which is failing methotrexate and plaquenil therapy. Comments The purpose of this consult request is to inform the scheduling staff that a medication needs to be prior-authorized before it is prescribed and/or administered. Reason for Visit * Reason Comments Joint Pain all over, also right side chest pain Rash left ankle Medication Management nail pitting Encounter Details Date Type Department Care Team (Late st Contact Info) Description 01/23/2013 11:20 EDT Office Visit [facility] Rheumatology & Immunology - [facility] [address], [place] [id number] Yovana Callejas MD [address] [place], [place] [address] [address] [place] [address] Psoriatic arthropathy ([facility]) (Primary Dx); Encounter for long-term (current) use of other medications; Screening examination for pulmonary tuberculosis Social History Tobacco Use Types Packs/Day Years [...] Sign Reading Time Taken Comments Blood Pressure 110/70 01/23/2013 1126 EDT Pulse 78 01/23/2013 1126 EDT Temperature - - Respiratory Rate 18 01/23/2013 1126 EDT Oxygen Saturation - - Inhaled Oxygen Concentration - - Weight 97.1 kg (214 lb) 01/23/2013 1126 EDT Height 152.9 cm (5' 0.2) 01/23/2013 1126 EDT Body Mass Index 41.52 01/23/2013 1126 EDT documented in this encounter Functional Status Cognitive Status Response Date of Assessm ent Because of a physical, menta l, or emotional condition, do you have serious difficulty concentrating, remembering, or making decisions? (5 years old or older) Yes 04/15/2010 documented as of this encounter Patient Instructions * Patient Instructions* Yovana Callejas MD - 01/23/2013 12:08 EDT Will continue with current medications We can try Enbrel therapy once a week. Will need to tests for TB and Hep B, Hep C status Ask for order from Dr Strong and Dr Callejas to be done. See you two months after you start Enbrel Stop plaquenil and methotrexate once you are on Enbrel documented in this encounter Progress Notes * Yovana Callejas MD - 01/23/2013 1133 EDT Division of Rheumatology and Clinical Immunology Chief Complaint Patient presents with ??? Joint Pain all over, also right side chest pain ??? Rash left ankle ??? Medication Management nail pitting This patient is here in followup of fibromyalgia and psoriatic arthritis. She is having more nail pitting and more psoriatic skin disease. Prism methotrexate and hydroxychloroquine are no longer effective. HPI: She has had a difficult winter. She has had more breathing difficulty. Evaluation with pulmonary asled to the discovery that she may have severe gastroesophageal reflux contributing to her shortnessof breath rather than underlying asthma. Workup is underway. She reports more joint pain. Has severe left knee pain. Previously had successful menisci me on herright knee. This left knee pain is being treated with physical therapy. She also the quad cane. Reports left anterior knee pain worse with extension and tenderness over the patella. There is been no warmth or swelling. Hands are very sore. Feels a bit of puffiness present on her hands. Has noticed more nail pitting as well as rash extending up over her elbows. Her fibromyalgia has been more active. She feels very discouraged however reports no suicidal ideation or other plan. Current Outpatient Prescriptions Medication Sig Dispense Refill ??? lactobacillus rham. GG-inulin 10 billion cell -200 mg CpSP Take 1 Applicator by mouth daily. 1 Bottle 3 ??? omeprazole (PRILOSEC) 20 mg capsule Once [...] (FLONASE) 50 mcg/actuation nasal spray Instill 1 [place] into both nostrils [...] natural rubber; Adhesive; Aspirin; Chocolate flavor; Codeine; Egg/poultry; Nsaids (non-steroidal anti-inflammatory drug); Other - see [...] right ??? Joint replacement 04/15/2010 Right TKR ([facility]) ??? Colonoscopy 2011 Family History Problem Relation Age of Onset ??? Diabetes Mother ??? High Blood Pressure Father ??? High Cholesterol Father History Social History ??? Marital Status: Single Spouse Name: N/A Number of Children: N/A ??? Years of Education: N/A Occupational History ??? Not on file. Social History Main Topics ??? Smoking status: Former Smoker -- 1.0 packs/day for 20 years Types: Cigarettes Quit date: 04/23/1996 ??? Smokeless tobacco: Never Used Comment: quit 20+ yr ago ??? Alcohol Use: Yes very occasional ??? Drug Use: No ??? Sexually Active: Yes -- Male partner(s) Control/ Protection: Condom Other Topics Concern ??? Not on file Social History Narrative Has a daughter, , who lives in [place] with one son, Rickey, now 4 weeks old. REVIEW OF SYSTEMS: Yes No Yes No Fever x Joint pain x Fatigue x Muscle pain x Night sweats x Morning stiffness x Weight change x If yes, duration 3 to 4 hours Gain or loss? Numbness/tingling x Right foot Eye discomfort x Headaches x Mouth/Nose sores x Muscle weakness x Chest pain x Burning on urination x Palpitations x Dark/bloody urine x Shortness of breath x Frequent urination x Cough x Trouble sleeping x Nausea/vomiting x Change in mood x Stomach pains/cramps x Nervous or anxious x Blood in stools x Sad or depressed x Diarrhea x Skin rash/changes x Left ankle Constipation x Sun induced rash x Itching x Left ankle Hand/Foot color change w/cold x Hair Loss x PHYSICAL EXAMINATION: Blood pressure 110/70, pulse 78, resp. rate 18, height 152.9 cm (60.2), weight 97.07 kg (214 lb), last menstrual period 03/09/2010. Patient is pleasant and well appearing Eyes: no iritis, no inflammation. ENT: No oral ulcers, dentition is good. No active dental infection. No nasal discharge. NECK: normal extension and lateral rotation without pain. NO lymphadenopathy or grossly enlarged thyroid BACK/sternum: She has myofascial tenderness present over the trapezius muscles at the occiput anterior chest over the sternum. There is no sternal enlargement or SC joint enlargement. No costochondral tenderness SKIN: Normal skin turgor. Moderate sized plaque of psoriasis behind the right ear over the right elbow in the umbilicus. No nail fold pitting. No nodules. No rashes. ABDOMEN: soft, non tender, non distended. Normal bowel sounds. JOINTS: Hands: Degenerative changes over the DIPS, Hebreden's nodes. Diffusely tender some dactylitis most prominent over the index fingers bilaterally. There is nailfold pitting present over the hands Wrists are unremarkable but diffusely tender. Elbows: normal ROM and no bursitis or tohpi Shoulders: normal ROM, no impingement, no subacromial bursitis Hips: normal ROM with internal and external rotation Knees: She has tenderness of the left knee, decreased extension reporting pain in the patellar tendon. Anterior fat pad is tender. No joint line tenderness no effusion. Right knee nontender no warmthmild degenerative changes prominent aspect Ankles: normal ROM, no effusion Feet: 1 st MTP bunion deformities. MTPS have some dactylitis with no subluxation. Myofascial tender points: Present and diffusely tender throughout NEUROLOGICAL Antalgic gait, uses a quad cane in the right hand for ambulation 5/5 hand dietetic intern Fluent speech which is easy to understand Sensation grossly intact 2+ and symmetrical biceps, patellar, achilles reflexes PSYCH: pleasant and appropriate. Well groomed. LABS Due for CMP CBC today states she will go to lab today, hepatitis and hep C testing. Diagnosis / Assessment: Fibromyalgia: Very active. Patient struggling with low mood. Remains on Cymbalta. Psoriatic arthritis: She has more joint activity. While some of her pain may be related to fibromyalgia I do feel there is a component of psoriatic arthritis contributing to her symptoms and there isswelling on exam. Newer data has suggest that methotrexate is in effect for psoriatic arthritis. I would like to proceed with a trial of Enbrel therapy injected once weekly. Patient knows she will need screening for TB is agreeable to a skin test been placed today she also understands that hepatitis B and C. screening would be required and is agreeable to having his labs drawn today. Once she starts Enbrel therapy: Stop methotrexate and Plaquenil and return 6 weeks thereafter The above recommendations were discussed in detail with the patient the total time spent today was 30 minutes with a total of 23 minutes spent counseling and discussing plan of care, side effects of Enbrel including risk of zoster, infection, need for injections to be given by the patient herself as well as the process for prior authorization. Barriers to learning identified: No Patient verbalizes understanding and agrees with plan Yes Yovana Callejas MD 01/23/2013 13:16 documented in this encounter Plan of Treatment Scheduled Referrals Name Type Priority Associated Diagnoses Order Schedule AMB MEDICATION PRIOR AUTHORIZATION Outpatient Referral Routine Encounter for long-term (current) use of other medications Psoriatic arthropathy ([facility]) Ordered: 01/23/2013 documented as of this encounter Procedures Procedure Name Priority Date/Time Associated Diagnosis Comments PLACE PPD Routine 01/25/2013 15:35 EDT Psoriatic arthropathy ([facility]) Encounter for long-term (current) use of other medications documented in this encounter Results * PLACE PPD (01/25/2013 15:35 EDT) TB Skin Test 0.1ML POINT OF CARE Induration 0 MM POINT OF CARE 01/25/2013 15:3 5 EDT Yovana Callejas MD POINT OF CARE TE ST ORDERABLES Performing Organization Address City/State/[place] Co de Phone Number POINT OF CARE * HEPATITIS C ANTIBODY (01/23/2013 12:44 EDT) Hepatitis C Ab Negative [facility] Comment:Reference Range: Neg ative Blood specimen (specimen) 01/23/2013 12:44 EDT 01/23/2013 13:08 EDT Yovana Callejas MD CHEMISTRY & BLOO D GAS ORDERABLES [facility] [address] [place] [address] * HEPATITIS B CORE ANTIBODY (01/23/2013 12:44 EDT) Hep B Core Ab Negative [facility] Comment: Reference Range: ??Negative Interpretation depends on clinical setting. Blood specimen (specimen) 01/23/2013 12:44 EDT 01/23/2013 13:08 EDT Yovana Callejas MD CHEMISTRY & BLOO D GAS ORDERABLES Performing Organization Address [facility] de Phone Number [facility] [address] [place] [address] * HEPATITIS B SURFACE ANTIBODY (01/23/2013 12:44 EDT) Hepatitis B Surface Ab Negative [facility] Comment: Reference Range: Unvaccinated: ??Negative Vaccinated: ??Positive HBs Antibody, Quant <5.0 mIU/mL [facility] Comment: Patient is presumed to not be immune to infection with HBV. Reference Range: Positive: >=12.0 mIU/mL Indeterminate: >=5.0 to <12.0 mIU/mL Negative: <5.0 mIU/mL Blood specimen (specimen) 01/23/2013 12:44 EDT 01/23/2013 13:08 EDT Yovana Callejas MD CHEMISTRY & BLOO D GAS ORDERABLES Performing Organization Address [facility] de Phone Number [facility] [address] [place] [address] * HEPATITIS B SURFACE ANTIGEN (01/23/2013 12:44 EDT) Hepatitis B Surface Ag Negative [facility] Comment:Reference Range: Neg ative Blood specimen (specimen) 01/23/2013 12:44 EDT 01/23/2013 13:08 EDT Yovana Callejas MD CHEMISTRY & BLOO D GAS ORDERABLES Performing Organization Address [facility]/ZIP Co de Phone Number [facility] [address] [place] [address] documented in this encounter Visit Diagnoses Diagnosis Psoriatic arthropathy ([facility] Primary Psoriatic arthropathy Encounter for long-term (current) use of other medications Screening examination for pulmonary tuberculosis documented in this encounter Care Teams Print Machine Operator Relationship Specialty Start Date End Date Remedios Mehta MD [address] [place] [address] PCP - General 02/19/09 01/04/15 documented as of this encounter
--- OUTSIDE RECORDS SUMMARY | 2024-06-24 02:20 | XMS_ITS | Encounter Summary ---
Author Organization [facility] Address [address] [place] [address] Care Team Providers Care Material Mover Name Role Phone Remedios Mehta MD Primary Care Provider [phone] Reason for Visit * Reason Comments Other Encounter Details Date Type Department Care Team (Late st Contact Info) Description 12/25/[address] [address] Remedios Mehta MD [address] [place] [phone] Other Social History Tobacco Use Types [...] Dispensed Refills Start Date End Da te CLARITIN 10 mg tablet TAKE ONE TABLET BY MOUTH EVERY DAY 90 Each 1 12/25/2012 08/19/2013 documented in this encounter Plan of Treatment Not on file documented as of this encounter Visit Diagnoses Not on filedocumented in this encounter Discontinued Medications Medication Sig Discontinue Reason Start Date End Da te loratadine (CLARITIN) 10 mg tabletIndications:Allergi c rhinitis Take 1 Tab by mouth daily. Reorder 06/07/2012 12/25/2012 documented as of this encounter Care Teams Material Mover Relationship Specialty Start Date End Date Remedios Mehta MD [address] [place] [phone] PCP - General 02/19/09 01/04/15 documented as of this encounter
--- OUTSIDE RECORDS SUMMARY | 2024-06-24 02:20 | XMS_ITS | Encounter Summary ---
Author Organization [facility] Address [address] [place] [address] Care Team Providers Care Patient Consumer Marketer Name Role Phone Remedios Mehta MD Primary Care Provider [phone] Encounter Details Date Type Department Care Team (Late st Contact Info) Description 01/23/2013 Results Only [facility] Rheumatology & Immunology - Main [place] [address] [place], [place] [id number] Yovana Callejas MD [address] [place] [address] [address] [place] [phone] Social History Tobacco Use Types Packs/Day [...] Associated Diagnosis Comments MULTIPLE DOC ORDERS Routine 01/23/2013 1 2:44 EDT HEMOGLOBIN A1C Routine 01/23/2013 12:44 EDT LIPID PROFILE (INCLUDES CHOLESTEROL, TRIGLYCERIDES, HDL, LDL) Routine 01/23/2013 12:44 EDT documented in this encounter Results * LIPID PROFILE (INCLUDES CHOLESTEROL, TRIGLYCERIDES, HDL, LDL) (01/23/2013 12:44 EDT) Cholesterol 207 mg/dl [facility] Comment: Desirable:<200 Borderline High:200-239 High:>bc=871 Triglycerides 152 mg/dl [facility] Comment: Normal:<150 Borderline High:150-199 High:200-499 Very High:>jm=667 HDL 52 mg/dl [facility] Comment: Low:<40 Normal:40-60 Desirable: >60 LDL, Calculated 125 mg/dl [facility] Comment: Optimal:<100 Near Optimal:100-129 Borderline High:130-159 High:160-189 Very High:>qf=578 Chol/HDL Ratio 4.0 [facility] Fasting? Unknown [facility] 01/23/2013 12:4 4 EDT 01/23/2013 13:08 EDT Yovana Callejas MD CHEMISTRY & BLOO D GAS ORDERABLES Performing Organization Address City/State/[facility] Co de Phone Number [facility] [address] [place] [address] * HEMOGLOBIN A1C (01/23/2013 12:44 EDT) Hemoglobin A1C 6.1 % [facility] Comment: Reference Range: <5.7% Normal 5.7-6.4% Increased risk for diabetes =>6.5% Diagnostic for diabetes (if confirmed) The A1c goal for non adults in general is <7%. The A1c goal for selected patients may be significantly lower than 7% if this can be achieved without significant hypoglycemia or other adverse effects of treatment. Est Avg Glucose 128 mg/dl [facility] Comment: eAG represents the A1c result expressed as average glucose in mg/dl. 01/23/2013 12:4 4 EDT 01/23/2013 13:08 EDT Yovana Callejas MD CHEMISTRY & BLOO D GAS ORDERABLES Performing Organization Address [facility] Co de Phone Number [facility] [address] [place] [address] * MULTIPLE DOC ORDERS (01/23/2013 12:44 EDT) Multiple Doc Orders This report contains lab results ordered [facility] Comment: by another provider which were collected and processed simultaneously with the orders you requested. If you have any questions, please call Customer Service at [phone]. 01/23/2013 12:4 4 EDT 01/23/2013 13:08 EDT Yovana aCllejas MD CHEMISTRY & BLOO D GAS ORDERABLES Performing Organization Address [facility] Co de Phone Number [facility] [address] [place] [address] documented in this encounter Visit Diagnoses Not on filedocumented in this encounter Care Teams Patient Consumer Marketer Relationship Specialty Start Date End Date Remedios Mehta MD [address] [place] [phone] PCP - General 02/19/09 01/04/15 documented as of this encounter
--- OUTSIDE RECORDS SUMMARY | 2024-06-24 02:20 | XMS_ITS | Encounter Summary ---
Author Organization [facility] Address [address] [place] [address] Care Team Providers Care Engagement Lead Name Role Phone Keshawn Mehta MD Primary Care Provider [phone] [phone] Reason for Visit * Reason Comments Follow-up generalized joint pa in Encounter Details Date Type Department Care Team (Late st Contact Info) Description 10/11/2012 10:20 EST Office Visit [facility] Rheumatology & Immunology - [facility] [address] [place] [address] Yovana Callejas MD [address] [place] [address] [phone] Myalgia and myositis (Primary Dx) Social History Tobacco Use Types [...] Sign Reading Time Taken Comments Blood Pressure 110/60 10/11/2012 1051 EST Pulse 64 10/11/2012 1051 EST Temperature - - Respiratory Rate - - Oxygen Saturation - - Inhaled Oxygen Concentration - - Weight 98.4 kg (217 lb) 10/11/2012 1051 EST Height - - Body Mass Index 42.38 09/12/2012 1338 EST documented in this encounter Functional Status Cognitive Status Response Date of Assessm ent Because of a physical, menta l, or emotional condition, do you have serious difficulty concentrating, remembering, or making decisions? (5 years old or older) Yes 04/15/2010 documented as of this encounter Patient Instructions * Patient Instructions* Yovana Callejas MD - 10/11/2012 11:27 EST Increase cymbalta to 60 mg a day. See you in 3 months Right now I see a lot of fibroflare See Dr Lazaro about glucose/anemia documented in this encounter Ordered Prescriptions Prescription Sig Dispensed Refills Start Date End Da te duloxetine (CYMBALTA) 60 mg capsuleIndications:Myalgia and myositis Take 1 Cap by mouth daily. 30 Cap 11 10/11/2012 10/15/2013 documented in this encounter Progress Notes * Yovana Callejas MD - 10/11/2012 1342 EST Division of Rheumatology and Clinical Immunology Chief Complaint Patient presents with ??? Follow-up generalized joint pain HPI: She has been having more fibromyalgia pain she has tenderness in all of her joints in her low back forearms. Hands feel puffy and swollen. Recently had gynecological surgery and was found to have endometrial cancer. His been very stressful time for her. Also had an episode of pneumonia. Currently stable. Denies any morning stiffness feels sore all day long the differentiation sleeps not so great. Her stress level is high multiple reasons. She is on disability. She is a nonsmoker and nondrinker Current Outpatient Prescriptions Medication Sig Dispense Refill ??? duloxetine (CYMBALTA) 60 mg capsule Take 1 Cap by mouth daily. 30 Cap 11 ??? zafirlukast (ACCOLATE) 20 mg tablet Take 1 Tab by mouth 2 times daily. 60 Tab 5 ??? CALCIUM CARBONATE/VITAMIN D3 (CALCIUM WITH VITAMIN D ORAL) Take by mouth daily. ??? enoxaparin (LOVENOX) 60 mg/0.6 mL injection Inject 60 mg into the skin daily. 10 Syringe 0 ??? albuterol (PROVENTIL) 2.5 mg /3 mL (0.083 %) nebulizer solution Take 3 mL by nebulization every4 hours as needed for Wheezing. 1 Box 1 ??? albuterol (PROVENTIL HFA, VENTOLIN HFA) 90 mcg/actuation inhaler Inhale 2 Puffs as directed every 4 hours. 1 Inhaler 1 ??? lovastatin (MEVACOR) 10 mg tablet Take 1 Tab by mouth daily. 90 Tab 4 ??? trazodone (DESYREL) 100 mg tablet Take 2 Tabs by mouth. Take 1-2 tabs at bedtime for sleep as needed 56 Tab 1 ??? fluticasone (FLONASE) 50 mcg/actuation nasal spray Instill 1 [place] into both nostrils daily. 1 Bottle 5 ??? budesonide-formoterol HFA (SYMBICORT) 80-4.5 mcg/actuation HFAA inhaler Inhale 2 Puffs as directed 2 times daily. 1 Inhaler 5 ??? loratadine (CLARITIN) 10 mg tablet Take 1 Tab by mouth daily. 90 Tab 1 ??? pantoprazole (PROTONIX) 40 mg tablet Take 1 Tab by mouth daily. 90 Tab 1 ??? hydroxychloroquine (PLAQUENIL) 200 mg tablet Take 1 Tab by mouth 2 times daily. 60 Tab 11 ??? methotrexate 2.5 mg tablet Take 6 Tabs by mouth once a week. 24 Each 11 ??? hydrocodone-acetaminophen (LORTAB;VICODIN) 5-500 mg tablet Take 1 Tab by mouth every 6 hours asneeded for Pain (up to 4 pills a day). 120 Tab 3 ??? metoprolol (LOPRESSOR) 25 mg tablet Take [...] anti-inflammatory drug); Other - see comments; Penicillins; Sulfa(sulfonamide antibiotics); Soy; and Wheat containing prod Past [...] right ??? Joint replacement 04/15/2010 Right TKR ([facility]) ??? Colonoscopy 2010 Family History Problem Relation Age of Onset [...] Has a daughter, , who lives in [place] with one son, Rickey, now 4 weeks old. REVIEW OF SYSTEMS: Yes No Yes No Fever x Joint pain X Fatigue X Muscle pain X Night sweats x Morning stiffness X Weight change C If yes, duration Gain or loss? Numbness/tingling X hands Eye discomfort x Headaches x Mouth/Nose sores x Muscle weakness x Chest pain x Burning on urination x Palpitations x Dark/bloody urine x Shortness of breath X Frequent urination x Cough x Trouble sleeping x Nausea/vomiting x Change in mood X Stomach pains/cramps x Nervous or anxious x Blood in stools x Sad or depressed x Diarrhea x Skin rash/changes x Constipation x Sun induced rash x Itching x Hand/Foot color change w/cold x Hair Loss x PHYSICAL EXAMINATION: BP 110/60 Pulse 64 Wt 98.431 kg (217 lb) LMP 03/09/2010 Patient is pleasant and well appearing HEENT: no ocular inflammation, no oral ulcers, dentition is good. No active [...] nail fold pitting. No nodules. No rashes. No striae. Normal Nailfold Capillaries JOINTS: Hands: Hands have DIP and PIP arthritis. She reports diffuse tenderness however there is no synovitis and wrists have normal range of motion and no deviation is noted. Myofascial forms Shoulders: normal ROM, no impingement, no subacromial bursitis Hips: normal ROM with internal and external rotation Knees: Normal ROM, no joint line tenderness; no effusion or warmth. Normal patellar motion. Pes anserine bursa not tender Ankles: normal ROM, no effusion Feet: No bunion deformities. Normal MTPS with no subluxation. She has multiple myofascial tender points present throughout jumps and shouts in pain with palpation NEUROLOGICAL Normal gait. No assistive devices 5/5 hand trial paralegal, biceps, triceps strength. Negative Tinel's no thenar No fasciulation Sensation grossly intact 2+ and symmetrical biceps, triceps, patellar, achilles reflexes PSYCH: pleasant and appropriate. Well groomed. LABS Results Only on 09/17/2012 Component Date Value ??? Pathology Report: 09/17/2012 Value:SURGICAL PATHOLOGY REPORT Reports generated via electronic interface contain original data; however they are lacking the format of the original report. Caution should be taken when reading/interpreting unformatted reports. Name: ERIKA HUSAIN : 1960 (Age: 52) F Collect Date: 09/17/2012 Location: [facility] Receive Date: 09/17/2012 Provider: KASANDRA AMBROSE MD Copy to: KESHAWN SUÁREZ MD Final Pathologic Diagnosis: A. Endocervix, curettage: 1. Squamous epithelium with acute inflammation and reactive atypia. See comment. 2. Endocervical tissue with squamous metaplasia. B. Endometrium, polyp, curettage: 1. Endometrial polyp, hyperplastic-type. 2. No cytologic atypia. Comment: Immunohistochemical study has been performed on (A) to characterize the squamous atypia. The immunoreactivity pattern support interpretation of reactive atypia, however continued close clinical follow-up is advised. Block Antibody (clone) Result A P16 (E6H4TM, [facility]) positive in rare cells MIB-1 (Ki-67)(rabbit monoclonal (SP6), [facility]) positive in less than 10% of cells, in basal/parabasal distribution This case has been reviewed by Dr. Georgie Butler in consultation, and also has been presented at the intradepartmental consultation conference. (Dr. Frazier)/everett NOTE: One or more of the reagents used in immunohistochemical testing in this case may not have been cleared or approved by the U.S. Food and Drug Administration (FDA). The FDA has determined that such clearance or approval is not necessary. These tests are used for clinical purposes. They should not be regarded as investigational or for research. These reagents' performance characteristics have been determined by [facility]. This laboratory is certified under the Clinical Laboratory Improvement Amendments of 1988 (CLIA-88) as qualified to perform high complexity clinical laboratory testing. Document reviewed and electronically signed by: Marci Larios MD Report Date: 09/24/2012 15:21 By the signature above, the attending physician certifies that he/she has personally conducted a gross and/or microscopic examination of the described specimens and rendered or confirmed the above diagnosis. Specimen(s) Received: A. ECC B. EMC and polyp Clinical History: Postmenopausal bleeding Gross Description: Received in normal saline labelled Erika Husain and A-ECC is a 1.5 x 1.2 x 0.3 cm aggregate of light monahan-red and white, hyperemic, mucinous material which is submitted entirely as (A). Received in normal saline labelled Burritt, Erika and B-EMC and polyp is a 1.7 x 1.2 x 0.3 cm white to focally light red, firm piece of tissue. Received separately in the specimen container is a 2.0 x 1.0 x 0.3 cm aggregate of blood clot and red-tinged, mucinous material. The largest piece of tissue described first is bisected and submitted entirely as (B1) while the remaining specimen is submitted as (B2). (Ivone Berumen/diana End of Report Admission on 09/17/2012, Discharged on 09/17/2012 Component Date Value ??? Glucose, Fingerstick 09/17/2012 95 ??? Reactor Operator ID 09/17/2012 [id number] Results Only on 09/06/2012 Component Date Value ??? WBC 09/06/2012 10.98 ??? RBC 09/06/2012 3.67* ??? Hemoglobin 09/06/2012 13.1 ??? HCT 09/06/2012 36.5 ??? MCV 09/06/2012 100* ??? MCH 09/06/2012 35.8* ??? MCHC 09/06/2012 35.9 ??? PLT 09/06/2012 298 ??? RDW-CV 09/06/2012 13.9 ??? Potassium 09/06/2012 3.8 ??? Sodium 09/06/2012 142 ??? Chloride 09/06/2012 103 ??? CO2 09/06/2012 30 ??? Total Alkaline Phosphata* 09/06/2012 74 ??? Bilirubin, Total 09/06/2012 0.7 ??? AST 09/06/2012 16 ??? ALT 09/06/2012 35 ??? Albumin 09/06/2012 3.9 ??? Total Protein 09/06/2012 6.7 ??? Creatinine 09/06/2012 0.76 ? ? GFR, Calculated 09/06/2012 >60 ??? BUN 09/06/2012 19 ??? Calcium 09/06/2012 8.9 ??? Calculated Calcium 09/06/2012 9.4 ??? Glucose, Serum 09/06/2012 122* ??? Fasting? 09/06/2012 Unknown Phlebotomy Only on 08/08/2012 Component Date Value ? ? D-Dimer 08/08/2012 <200 ??? Pro Time 08/08/2012 10.3 ??? I.N.R. 08/08/2012 0.9 ??? PTT 08/08/2012 31 ??? Potassium 08/08/2012 4.4 ??? Sodium 08/08/2012 140 ??? Chloride 08/08/2012 102 ??? CO2 08/08/2012 28 ??? Total Alkaline Phosphata* 08/08/2012 68 ??? Bilirubin, Total 08/08/2012 0.8 ??? AST 08/08/2012 20 ??? ALT 08/08/2012 32 ??? Albumin 08/08/2012 4.4 ??? Total Protein 08/08/2012 7.0 ??? Creatinine 08/08/2012 0.97 ? ? GFR, Calculated 08/08/2012 >60 ??? BUN 08/08/2012 20 ??? Calcium 08/08/2012 9.1 ??? Calculated Calcium 08/08/2012 9.1 ??? Glucose, Serum 08/08/2012 86 ??? Fasting? 08/08/2012 No ??? WBC 08/08/2012 6.73 ??? RBC 08/08/2012 3.89 ??? Hemoglobin 08/08/2012 12.5 ??? HCT 08/08/2012 36.5 ??? MCV 08/08/2012 94 ??? MCH 08/08/2012 32.2 ??? MCHC 08/08/2012 34.4 ??? PLT 08/08/2012 324* ??? RDW-CV 08/08/2012 13.6 ??? Neutrophils 08/08/2012 53.4 ??? Lymphocytes 08/08/2012 36.1 ??? Monocytes 08/08/2012 7.7 ??? Eosinophils 08/08/2012 2.2 ??? Basophils 08/08/2012 0.6 ??? ABS Neutrophils 08/08/2012 3.60 ??? ABS Lymphs 08/08/2012 2.43 ??? ABS Monocytes 08/08/2012 0.52 ??? ABS Eosinophils 08/08/2012 0.15 ??? ABS Basophils 08/08/2012 0.04 ??? Type of Diff: 08/08/2012 Automated Office Visit on 07/16/2012 Component Date Value ??? Hemoglobin A1C 07/16/2012 6.0 ??? Est Avg Glucose 07/16/2012 126 ??? Potassium 07/16/2012 4.5 ??? Sodium 07/16/2012 141 ??? Chloride 07/16/2012 102 ??? CO2 07/16/2012 33* ??? Total Alkaline Phosphata* 07/16/2012 65 ??? Bilirubin, Total 07/16/2012 0.7 ??? AST 07/16/2012 17 ??? ALT 07/16/2012 27 ??? Albumin 07/16/2012 4.0 ??? Total Protein 07/16/2012 6.4* ??? Creatinine 07/16/2012 0.76 ? ? GFR, Calculated 07/16/2012 >60 ??? BUN 07/16/2012 21 ??? Calcium 07/16/2012 9.3 ??? Calculated Calcium 07/16/2012 9.7 ??? Glucose, Serum 07/16/2012 92 ??? Fasting? 07/16/2012 Unknown ??? TSH 07/16/2012 1.09 ??? WBC 07/16/2012 7.29 ??? RBC 07/16/2012 3.97 ??? Hemoglobin 07/16/2012 12.8 ??? HCT 07/16/2012 37.4 ??? MCV 07/16/2012 94 ??? MCH 07/16/2012 32.1 ??? MCHC 07/16/2012 34.1 ??? PLT 07/16/2012 281 ??? RDW-CV 07/16/2012 13.0 ??? Neutrophils 07/16/2012 64.9 ??? Lymphocytes 07/16/2012 25.0 ??? Monocytes 07/16/2012 7.8 ??? Eosinophils 07/16/2012 2.0 ??? Basophils 07/16/2012 0.3 ??? ABS Neutrophils 07/16/2012 4.73 ??? ABS Lymphs 07/16/2012 1.82 ??? ABS Monocytes 07/16/2012 0.57 ??? ABS Eosinophils 07/16/2012 0.14 ??? ABS Basophils 07/16/2012 0.02 ??? Type of Diff: 07/16/2012 Automated Diagnosis / Assessment: Fibromyalgia: Clinically more active likely due to recent stressors and recent diagnosis of cancer.She is describing disturbed sleep. Weight loss is encouraged. She cannot tolerate nonsteroidals buthas done well on Cymbalta stool increased Inflammatory arthritis: No evidence of active disease. She remained stable from this point we will probably reduce her hydroxychloroquine and her next visit Recommendations/Evaluation: Increase Cymbalta to 60 mg Reassured patient that her pain is most consistent with fibromyalgia Barriers to learning identified: No Patient verbalizes understanding and agrees with plan Yes Yovana Callejas MD 10/11/2012 13:42 documented in this encounter Plan of Treatment Not on file documented as of this encounter Visit Diagnoses Diagnosis Myalgia and myositis- Primary Mylagia and myositis, unspecified documented in this encounter Discontinued Medications Medication Sig Discontinue Reason Start Date End Da te predniSONE (DELTASONE) 20 mg tablet Take 1 Tab by mouth 2 times daily. Therapy completed 08/25/2012 10/11/2012 duloxetine (CYMBALTA) 20 mg capsuleIndications:Depradriane oliverio, major Take 1 Cap by mouth 2 times daily. Alternate therapy 04/04/2012 10/11/2012 documented as of this encounter Care Teams Engagement Lead Relationship Specialty Start Date End Date Keshawn Mehta MD [address] [place] [address] [phone] PCP - General 02/19/09 01/04/15 documented as of this encounter
--- OUTSIDE RECORDS SUMMARY | 2024-06-24 02:20 | XMS_ITS | Encounter Summary ---
Author Organization [facility] Address [address] [place] [address] Care Team Providers Care Check Totaler Name Role Phone Remedios Mehta MD Primary Care Provider [phone] Reason for Visit * Reason Comments Neck Pain Back Pain Encounter Details Date Type Department Care Team (Latest Contact Info) Description 01/15/2013 9:45 EDT Office Visit [facility] Interventional Pain [address] [place], [place] [phone] Abundio Tubbs, DO [address] [facility] [address] [place], [place] [phone] Neck pain (Primary Dx); Headache Social History Tobacco Use Types Packs/Day Years [...] Sign Reading Time Taken Comments Blood Pressure 131/81 01/15/2013 1048 EDT Pulse 66 01/15/2013 1048 EDT Temperature 36.6 ??C (97.8 ??F) 01/15/2013 0931 EDT Respiratory Rate 16 01/15/2013 0931 EDT Oxygen Saturation - - Inhaled Oxygen Concentration - - Weight 97.1 kg (214 lb) 01/15/2013 0931 EDT Height 152.4 cm (5') 01/15/2013 09 EDT Body Mass Index 41.79 01/15/2013 09 EDT documented in this encounter Functional Status Cognitive Status Response Date of Assessm ent Because of a physical, menta l, or emotional condition, do you have serious difficulty concentrating, remembering, or making decisions? (5 years old or older) Yes 04/15/2010 documented as of this encounter Patient Instructions * Patient Instructions* Charlette Donis RN - 01/15/2013 10:25 EDT [facility] [address] [address] Patient Instructions You have had your bilateral cervical Facet Steroid Injection. The purpose of this procedure has been to place medication which may help relieve your pain. Steroid may be used to decrease the swellingand nerve irritation which may be causing your pain. The following information should help you over the next few days regarding what you may expect. Today please stay busy/active doing things that [...] tomorrow with this information. Procedure end time: 10:45 Pain relief start time Returned to baseline pain Hours of relief Percentage of relief 0-100 (0 = no relief, 100 = total relief) DO NOT drive a car for the [...] Barriers: None Outcomes: independent and verbalized understanding Signature:CHARLETTE DONIS RN documented in this encounter Progress Notes * Abundio Tubbs - 01/15/2013 1043 EDT PT NAME: Cherelle Husain : 1960 DOS: 01/15/2013 PIT INSPECTOR: Abundio Tubbs DO PERIANESTHESIA MANAGER: N/A PROCEDURE: Cervical facet joint injecgtion, C3-C4 bilateral DIAGNOSIS: 1. Neck pain 2. Headache INTERVAL HISTORY Cherelle Husain presents at the request of Remedios Strong MD for treatment of chronic neck pain. She has had an YANET without improvement. She has multiple areas of pain, however the neck is our main focus today. The neck pain seems to be associated with constant headaches. There have been no interval changes in the pain pattern or quality since our last evaluation. EXAM Blood pressure 85/50, pulse 72, temperature 36.6 ??C (97.8 ??F), temperature source Tympanic, resp.rate 16, height 152.4 cm (60), weight 97.07 kg (214 lb), last menstrual period 03/09/2010. General: awake, alert, cooperative, no apparent distress Skin: no rashes, bruises or petechiae noted Musculoskeletal: Gait: he is ambulating without antalgia Joints: no redness, warmth, or swelling of the joints MS: SLT neg Cervical Spine: Palpation: positive tenderness of the paraspinal muscles, most pronounced at C3- 4 b/l CS ROM: flexion is painful extension is painful IMPRESSION/PLAN Ms. Husain was seen today for cervical facet joint injections. The plan is to perform injection atdiagnostic facet injections at C3-4 b/l. We will follow-up by phone in 24 hrs for results. PROCEDURE The possible risks and benefits of the procedure were discussed with the patient who wished to proceed and provided written informed consent to perform cervical facet joint injections. The side of laterality was marked. The patient was placed in the prone position, the skin over the neck was prepped with chlorhexadine, and the site was draped with sterile towels. Strict sterile technique was maintained throughout the procedure. Flouroscopy was used to identify the appropriate anatomy and symptomatic facet joints. The skin and subcutaneous tissue were anesthetized with 2% lidocaine. A 25 gauge3.5 inch spinal needle was inserted, under fluoroscopic guidance using coaxial technique, into eachof the aforementioned facet joints. After negative aspiration, each joint was injected with 1 ml???s of 0.5% Bupivacaine and 20 mg Depo-Medrol. The needles were then flushed and removed. There were no paresthesia during needle placement and aspiration was negative at all times. The patient tolerated the procedure well and there were no apparent complications. Written and verbal discharge instructions were reviewed with the patient prior to discharge. Abundio Tubbs DO 01/15/2013 * Charlette Donis RN - 01/15/2013 0938 EDT [facility] Rooming Note Does patient have a Computer Support Specialist Instructor? yes Is patient NPO? (Solids since midnight & liquids for 4 hrs) yes Blood Thinners: Is patient on Blood Thinners? [...] encounter Miscellaneous Notes * Scanned Note-Null - MECHANIC, SCAN 2 - 01/16/2013 1301 EDT documented in this encounter Plan of Treatment Not on file documented as of this encounter Visit Diagnoses Diagnosis Neck pain- Primary Cervicalgia Headache(784.0) Headache documented in this encounter Care Teams Check Totaler Relationship Specialty Start Date End Date Remedios Mehta MD [address] [place] [phone] PCP - General 02/19/09 01/04/15 documented as of this encounter
--- OUTSIDE RECORDS SUMMARY | 2024-06-24 02:20 | XMS_ITS | Encounter Summary ---
Author Organization [facility] Address [address] [place] [address] Care Team Providers Care Equine Science Instructor Name Role Phone Remedios Mehta MD Primary Care Provider + [phone] Encounter Details Date Type Department Care Team (Latest Contact Info) Description 12/12/2012 14:49 EST - 12/12/2012 23:59 EST Hospital Encounter [facility] Pulmonary Function Lab - [facility] [place] [address] [place], [place] [id number] Unknown, Provider, Chance Figueroa MD [address] [place] [address] [phone] Discharge Disposition: Auto Discharge Social History Tobacco [...] 1 Inhaler 5 07/16/2012 06/05/2013 duloxetine (CYMBALTA) 60 mg capsuleIndications:My algia and myositis Take 1 Cap by mouth daily. 30 Cap 11 10/11/2012 10/15/2013 fluocinonide (LIDEX) 0.05 % cream Apply to affect area(s) as directed. 60 g 3 03/23/2012 06/05/2013 fluticasone (FLONASE) 50 mcg/actuation nasal sprayIndications:Asth ma,Hyperlipidemia,Nee d for Tdap vaccination,Abdominal discomfort,IBS (irritable bowel syndrome),GERD (gastroesophageal reflux disease) Instill 1 [place] into both nostrils daily. 1 Bottle 5 [...] 1 02/17/2010 04/18/2021 loratadine (CLARITIN) 10 mg tabletIndications:All ergic rhinitis Take 1 Tab by mouth daily. 90 Tab 1 06/07/2012 12/25/2012 lovastatin (MEVACOR) 10 mg tabletIndications:Hyp erlipidemia,Asthma,Ne ed [...] (PRILOSEC) 20 mg capsuleIndications:GE RD (gastroesophageal reflux disease) Take 2 Caps by mouth 2 times daily. 60 Cap 4 12/12/2012 12/25/2012 trazodone (DESYREL) 100 mg tabletIndications:Lyubov lgia and myositis,Arthropathy Take 2 Tabs by mouth. Take 1-2 tabs at bedtime for sleep as needed 56 Tab 1 08/15/2012 12/19/2012 zafirlukast (ACCOLATE) 20 mg tabletIndications:Ast hma,Hyperlipidemia,Ne ed for Tdap vaccination,Abdominal discomfort,IBS (irritable bowel syndrome),GERD (gastroesophageal reflux disease) Take 1 Tab by mouth 2 times daily. 60 Tab 5 10/05/2012 12/20/2012 documented as of this encounter Discharge Disposition Disposition Code Departure Means Destination Auto Discharge Home documented in this encounter Plan of Treatment Not on file documented as of this encounter Visit Diagnoses Not on filedocumented in this encounter Care Teams Equine Science Instructor Relationship Specialty Start Date End Date Remedios Mehta MD [address] [place] [phone] PCP - General 02/19/09 01/04/15 documented as of this encounter
--- OUTSIDE RECORDS SUMMARY | 2024-06-24 02:20 | XMS_ITS | Encounter Summary ---
Author Organization [facility] Address [address] [place] [address] Care Team Providers Care Ferruler Name Role Phone Remedios Mehta MD Primary Care Provider + [phone] Reason for Visit * Reason Comments PPD Reading Encounter Details Date Type Department Care Team (Late st Contact Info) Description 01/25/2013 15:15 EDT Nurse Only [address] [address] Unknown, Provider, Nurse, [facility] Primo , RN PPD screening test (Primary Dx) Social History Tobacco Use Types [...] as of this encounter Progress Notes * Poly Arias LPN - 01/25/2013 5233 EDT Patient here for PPD reading only 0mm induration noted. I was supervised by Doris Gutierrez MD who was present and immediately available in the office suite. Poly Arias LPN 01/25/2013 15:48 documented in this encounter Plan of Treatment Not on file documented as of this encounter Visit Diagnoses Diagnosis PPD screening test- Primary Screening examination for pulmonary tuberculosis documented in this encounter Care Teams Ferruler Relationship Specialty Start Date End Date Remedios Mehta MD [address] [place] [phone] PCP - General 02/19/09 01/04/15 documented as of this encounter
--- OUTSIDE RECORDS SUMMARY | 2024-06-24 02:20 | XMS_ITS | Encounter Summary ---
Author Organization [facility] Address [address] [place] [address] Care Team Providers Care Automatic Profile Sander Operator Name Role Phone Remedios Mehta MD Primary Care Provider [phone] [phone] Encounter Details Date Type Department Care Team (Late st Contact Info) Description 09/06/2012 Results Only [facility] Laboratory Services - [facility] [place] [address] [place] [address] [id number] Antoinette Schilling MD [address] [place] [address] Social History Tobacco Use Types [...] Procedure Name Priority Date/Time Associated Diagnosis Comments COMPLETE BLOOD COUNT Routine 09/06/2012 15:01 EST COMPREHENSIVE METABOLIC PANEL (CMP) Routine 09/06/2012 15:01 EST documented in this encounter Results * (ABNORMAL) COMPREHENSIVE METABOLIC PANEL (CMP) (09/06/2012 15:01 EST) Potassium 3.8 3.5 - 5.0 mEq/L [facility] Sodium 142 136 - 145 mEq/L [facility] Chloride 103 96 - 110 mEq/L [facility] CO2 30 24 - 32 mEq/L [facility] Total Alkaline Phosphatase 74 38 - 126 U/L [facility] Bilirubin, Total 0.7 0.2 - 1.3 mg/dl [facility] AST 16 15 - 46 U/L [facility] ALT 35 9 - 52 U/L [facility] Albumin 3.9 3.4 - 4.9 g/dl [facility] Total Protein 6.7 6.5 - 8.3 g/dl [facility] Creatinine 0.76 0.52 - 1.04 mg/dl [facility] GFR, Calculated >60 >60 ml/min/1.7 3m2 [facility] BUN 19 10 - 26 mg/dl [facility] Calcium 8.9 8.5 - 10.5 mg/dl [facility] Calculated Calcium 9.4 8.5 - 10.5 mg/dl [facility] Glucose, Serum 122(H) 70 - 100 mg/dl [facility] Fasting? Unknown [facility] 09/06/2012 15:0 1 EST 09/06/2012 15:01 EST Antoinette Schilling MD CHEMISTRY & BLOOD GA S ORDERABLES [facility] [address] [place] [address] * (ABNORMAL) HEMAGRAM (09/06/2012 15:01 EST) WBC 10.98 4.0 - 12.4 K/cmm [facility] RBC 3.67(L) 3.86 - 5.04 M/cmm [facility] Hemoglobin 13.1 11.6 - 15.2 gm/dl [facility] HCT 36.5 34.9 - 44.4 % [facility] MCV 100(H) 81 - 98 fl [facility] MCH 35.8(H) 26.7 - 33.3 pg [facility] MCHC 35.9 32.1 - 35.9 gm/dl [facility] PLT 298 141 - 320 K/cmm [facility] RDW-CV 13.9 11.7 - 14.6 % [facility] 09/06/2012 15:0 1 EST 09/06/2012 15:01 EST Antoinette Schilling MD HEMATOLOGY & PF4 ORD ERABLES [facility] [address] [place] [address] documented in this encounter Visit Diagnoses Not on filedocumented in this encounter Care Teams Automatic Profile Sander Operator Relationship Specialty Start Date End Date Remedios Mehta MD [address] [place] [phone] PCP - General 02/19/09 01/04/15 documented as of this encounter
--- OUTSIDE RECORDS SUMMARY | 2024-06-24 02:20 | XMS_ITS | Encounter Summary ---
Author Organization [facility] Address [address] [place] [address] Care Team Providers Care Senior Clinical Data Coordinator Name Role Phone Remedios Mehta MD Primary Care Provider [phone] [phone] Encounter Details Date Type Department Care Team (Latest Contact Info) Description 12/12/2012 14:49 EST - 12/12/2012 23:59 EST Hospital Encounter [facility] Pulmonary Function Lab - [facility] [address] [place], [place] [id number] Asthma; SOB (shortness of breath) on exertion Discharge Disposition: Home or Self Care Social [...] bowel syndrome),GERD (gastroesophageal reflux disease) Instill 1 [place] into both nostrils daily. 1 Bottle 5 [...] Code Departure Means Destination Home or Self Long-Term documented in this encounter Progress Notes * Tessa Lopez RT - 12/12/2012 1548 EST Testing was performed and recorded in [employer]. See complete report in scanned documents. documented in this encounter Plan of Treatment Not on file documented as of this encounter Visit Diagnoses Diagnosis Asthma Unspecified asthma SOB (shortness of breath) on exertion Shortness of breath documented in this encounter Care Teams Senior Clinical Data Coordinator Relationship Specialty Start Date End Date Remedios Mehta MD [address] [place] [phone] PCP - General 02/19/09 3 documented as of this encounter
--- OUTSIDE RECORDS SUMMARY | 2024-06-24 02:20 | XMS_ITS | Encounter Summary ---
Author Organization [facility] Address [address] [place] [address] Care Team Providers Care Reach Truck Operator Name Role Phone Remedios Mehta MD Primary Care Provider [phone] [phone] Reason for Visit * Reason Onset Date Comments Medication Management 01/28/2013 Encounter Details Date Type Department Care Team (Late st Contact Info) Description 01/28/2013 Telephone [facility] Rheumatology & Immunology - [facility] [address] [place] [address] Yovana Callejas MD [address] [place] [address] [phone] Medication Management Social History Tobacco Use Types Packs/Day Years [...] Miscellaneous Notes * Telephone Encounter - Robyn Nathan, RN - 01/29/2013 1007 EDT left for pt that we have received the results of her hepatitis testing and PPD. I advised that we are waiting on the prior auth and will contact her hopefully this week. I did tell her to call onMonday if she has not heard back regarding the prior auth. * Telephone Encounter - Rosalva Mukherjee - 01/28/2013 1548 EDT Patient had a hepatitis and TB test done at [facility] on 01/23/13 and would like to know what meds she should be on. Patient would like a call back today if possible. Thanks documented in this encounter Plan of Treatment Not on file documented as of this encounter Visit Diagnoses Not on filedocumented in this encounter Care Teams Reach Truck Operator Relationship Specialty Start Date End Date Remedios Mehta MD [address] [place] [phone] PCP - General 02/19/09 01/04/15 documented as of this encounter
--- OUTSIDE RECORDS SUMMARY | 2024-06-24 02:20 | XMS_ITS | Encounter Summary ---
Author Organization [facility] Address [address] [place] [address] Care Team Providers Care Radio Aerial Installer Name Role Phone Remedios Mehta MD Primary Care Provider [phone] Encounter Details Date Type Department Care Team (Latest Contact Info) Description 12/11/2012 10:00 EST - 12/11/2012 23:59 EST Hospital Encounter [facility] - Medical Office Building [phone] Remedios Mehta MD [address] [place] [phone] Discharge Disposition: Home or Self Care [...] bowel syndrome),GERD (gastroesophageal reflux disease) Instill 1 [place] into both nostrils daily. 1 Bottle 5 [...] 4 04/04/2012 06/05/2013 pantoprazole (PROTONIX) 40 mg tabletIndications:MONALISA D (gastroesophageal reflux disease) Take 1 Tab by mouth daily. 90 Tab 1 06/07/2012 12/12/2012 trazodone (DESYREL) 100 mg tabletIndications:Lyubov lgia and [...] Code Departure Means Destination Home or Self Senior Living documented in this encounter Plan of Treatment Not on file documented as of this encounter Visit Diagnoses Not on filedocumented in this encounter Care Teams Radio Aerial Installer Relationship Specialty Start Date End Date Remedios Mehta MD [address] [place] [phone] PCP - General 02/19/09 01/04/15 documented as of this encounter
--- OUTSIDE RECORDS SUMMARY | 2024-06-24 02:20 | XMS_ITS | Encounter Summary ---
Author Organization [facility] Address [address] [place] [address] Care Team Providers Care Manager Semiconductor Name Role Phone Remedios Mehta MD Primary Care Provider [phone] [phone] Reason for Visit * Reason Onset Date Comments Prior Auth, Medication 12/24/2012 Medication Problem 12/24/2012 Prilosec Encounter Details Date Type Department Care Team (Late st Contact Info) Description 12/24/2012 Telephone [facility] Pulmonology & Critical Care - [facility] [address] [place] [address] Roberto Hodges MD [address] [place], [place] [phone] Prior Auth, Medication; Medication Problem (Prilosec) Social History Tobacco Use Types Packs/Day Years [...] a meal. Max dose 80 mg daily. 30 Cap 6 12/25/2012 12/27/2012 documented in this encounter Miscellaneous Notes * Telephone Encounter - Albert Sky, RT - 12/25/2012 1225 EST LMOM for pt to pickle cutter the once daily dosing of omeprazole and to call us in 2 weeks after trying it, to let us know if she has relief of her sx. ALBERT SKY, RT . * Telephone Encounter - Roberto Hodges MD - 12/25/2012 1150 EST She has used protonix x 3 yrs with no relief and that's why we wanted to use omeprazole. The insurance will not cover a BID dosing unless a q day dosing is effective. Will try omeprezole 20mg po q day and see if this helps. If not, will have to increase to BID dosing. Rx e sribed. Please let her know. * Telephone Encounter - Larissa Rosales - 12/25/2012 1052 EST Per Josue Ortega [facility]'s insurance company has denied the Prilosec 20 mg's twicedaily. Per Shannon, patient is completely out and the patient's stomach is really bothering her. Per Shannon, both she and the patient are wondering about protonic's instead. Per Shannon, the insurance company will approve that. * Telephone Encounter - Luisa Venegas - 12/24/2012 1554 EST Omeprazole 20 mg BID has been denied. Insurance wants her to try 20 mg once daily first. documented in this encounter Plan of Treatment Not on file documented as of this encounter Visit Diagnoses Not on filedocumented in this encounter Discontinued Medications Medication Sig Discontinue Reason Start Date End Da te omeprazole (PRILOSEC) 20 mg capsuleIndications:GERD (gastroesophageal reflux disease) Take 2 Caps by mouth 2 times daily. 12/12/2012 12/25/2012 documented as of this encounter Care Teams Manager Semiconductor Relationship Specialty Start Date End Date Remedios Mehta MD [address] [place] [phone] PCP - General 02/19/09 01/04/15 documented as of this encounter
--- OUTSIDE RECORDS SUMMARY | 2024-06-24 02:20 | XMS_ITS | Encounter Summary ---
Author Organization [facility] Address [address] [place] [address] Care Team Providers Care Commercial Plumber Name Role Phone Remedios Mehta MD Primary Care Provider [phone] [phone] Reason for Visit * Reason Onset Date Comments PPD Reading 01/25/2013 Encounter Details Date Type Department Care Team (Late st Contact Info) Description 01/25/[address] [facility] Rheumatology & Immunology - [facility] [address] [place], [place] [id number] Yovana Callejas MD [address] [place] [address] [phone] PPD Reading Social History Tobacco Use Types Packs/Day Years [...] Encounter - Ana Laura Edge RN - 01/25/2013 1329 EDT Spoke with patient. She is unable to come to [facility] for PPD read. She asks if she can go to [facility]. Spoke with Estevan at [facility] and they will see her, but she has to call and make an appointment. Spoke with patient. Advised her that she would be able to get PPD read, but that she would need to make an appointment first. Number provided for her to call to make the appointment. Patient verbalized understanding * Telephone Encounter - Ijeoma Sanches - 01/25/2013 1234 EDT The patient had a TB test done and would like to know if she can take it to [place] for the readings. documented in this encounter Plan of Treatment Not on file documented as of this encounter Visit Diagnoses Not on filedocumented in this encounter Care Teams Commercial Plumber Relationship Specialty Start Date End Date Remedios Mehta MD [address] [place] [phone] PCP - General 02/19/09 01/04/15 documented as of this encounter
--- OUTSIDE RECORDS SUMMARY | 2024-06-24 02:20 | XMS_ITS | Encounter Summary ---
Author Organization [facility] Address [address] [place] [address] Care Team Providers Care Hog Driver Name Role Phone Remedios Mehta MD Primary Care Provider [phone] [phone] Encounter Details Date Type Department Care Team (Late st Contact Info) Description 01/30/2013 Orders Only [facility] Rheumatology & Immunology - [facility] [address] [place], [place] [phone] Olga Lidia Verdugo RN Arthropathy (Primary Dx); Arthritis Social History Tobacco Use Types Packs/Day Years [...] Dispensed Refills Start Date End Da te hydroxychloroquine (PLAQUENIL) 200 mg tabletIndications:Arthropa thy,Arthritis Take 1 Tab by mouth 2 times daily. 60 Tab 5 01/30/2013 04/29/2013 documented in this encounter Plan of Treatment Not on file documented as of this encounter Visit Diagnoses Diagnosis Arthropathy- Primary Arthropathy, unspecified, site unspecified Arthritis Arthropathy, unspecified, site unspecified documented in this encounter Discontinued Medications Medication Sig Discontinue Reason Start Date End Da te hydroxychloroquine (PLAQUENIL) 200 mg tabletIndications:Arthrop athy,Arthritis Take 1 Tab by mouth 2 times daily. Reorder 06/04/2012 01/30/2013 documented as of this encounter Care Teams Hog Driver Relationship Specialty Start Date End Date Remedios Mehta MD [address] [place] [phone] PCP - General 02/19/09 01/04/15 documented as of this encounter
--- OUTSIDE RECORDS SUMMARY | 2024-06-24 02:20 | XMS_ITS | Encounter Summary ---
Author Organization [facility] Address [address] [place] [address] Care Team Providers Care Ceramic Products Sales Engineer Name Role Phone Remedios Mehta MD Primary Care Provider [phone] [phone] Encounter Details Date Type Department Care Team (Late st Contact Info) Description 12/19/[address] [address] Remedios Mehta MD [address] [place] [phone] Social History Tobacco Use Types Packs/Day [...] on filedocumented in this encounter Care Teams Ceramic Products Sales Engineer Relationship Specialty Start Date End Date Remedios Mehta MD [address] [place] [phone] PCP - General 02/19/09 3 documented as of this encounter
--- OUTSIDE RECORDS SUMMARY | 2024-06-24 02:20 | XMS_ITS | Encounter Summary ---
Author Organization [facility] Address [address] [place] [address] Care Team Providers Care Therapy Site Coordinator Name Role Phone Remedios Mehta MD Primary Care Provider [phone] Reason for Referral * Consult (Routine/Next Available) - Closed Specialty Diagnoses / Procedures Referred By Joao proctor Referred To Contact Nutrition Diagnoses Obesity, Class III, BMI 40-49.9 (morbid obesity) ([facility]) Breast lobule hyperplasia Knee pain Remedios Mehta MD [address] [place] [address] [facility] Nutrition [address] [place] [address] Referral ID Status Reason Start Date Expiration Date V isits Requested Visits Authorized [id number] Closed Specialty Services Required 12/03/2012 1 1 Question Answer Reason for Request: difficulty losing weight * Consult, Test and Treat (Routine/Next Available) - Closed Specialty Diagnoses / Procedures Referred By Joao proctor Referred To Contact Rehab Therapies Diagnoses Knee pain Remedios Mehta MD [address] [place] [address] Referral ID Status Reason Start Date Expiration Date V isits Requested Visits Authorized [id number] Closed Specialty Services Required 12/03/2012 1 1 Question Answer Reason for Request: left knee pain Reason for Visit * Reason Comments Knee Pain Nutrition Counseling Other fibro, ibs, back mike n, everything Encounter Details Date Type Department Care Team (Late st Contact Info) Description 12/03/2012 11:45 EST Office Visit [address] [address] Remedios Mehta MD [address] [place] [phone] Need for Tdap vaccination (Primary Dx); Knee pain; Obesity, Class III, BMI 40-49.9 (morbid obesity) (CMS-HCC) ([facility]); Breast lobule hyperplasia; Fibromyalgia; IBS (irritable bowel syndrome); Arthritis Social History Tobacco Use Types Packs/Day [...] Sign Reading Time Taken Comments Blood Pressure 106/58 12/03/2012 1148 EST Pulse 64 12/03/2012 1148 EST Temperature 36.4 ??C (97.6 ??F) 12/03/2012 1148 EST Respiratory Rate - - Oxygen Saturation - - Inhaled Oxygen Concentration - - Weight 98 kg (216 lb) 12/03/2012 1148 EST Height - - Body Mass Index 42.18 09/12/2012 1338 EST documented in this encounter [...] a day). 120 Tab 3 12/03/2012 02/14/2013 documented in this encounter Progress Notes * Remedios Strong MD - 12/04/2012 5829 EST Subjective: Patient ID: Cherelle Husain is an 52 y.o. female. Chief Complaint Patient presents with ??? Knee Pain ??? Nutrition Counseling ??? Other fibro, ibs, back pain, everything HPI Cherelle is here for a follow up. Feeling discouraged today. Doesn't feel she can lose weight on her own. Was told by plastic surgeryshe won't be seen for breast reduction until she's a certain BMI. I just can't lose weight. She asks me today for a medicine to help weight loss. Knee pain is worse. Saw Dr Moreland who recommended strengthening exercises and weight loss. Pt also discouraged about that. In counseling. That is helping. PMH/PSH/Meds/All/FH/SH all reviewed and updated in prism. [...] right leg ??? Cervical spondylosis without myelopathy Past Medical History Diagnosis Date ??? Fibromyalgia [...] to Visit Medication Sig Dispense Refill ??? hydrocodone-acetaminophen (LORTAB) 5-500 mg tablet Take [...] (FLONASE) 50 mcg/actuation nasal spray Instill 1 [place] into both nostrils daily. 1 Bottle 5 [...] occasional ROS - See HPI Objective: BP 106/58 Pulse 64 Temp(Src) 36.4 ??C (97.6 ??F) (Tympanic) Wt 97.977 kg (216 lb) LMP 03/09/2010 Physical Exam Constitutional: She is oriented to person, place, and time. She appears well- developed and well-nourished. HENT: Mouth/Throat: Oropharynx is clear and moist. Eyes: Conjunctivae are normal. Neck: Normal range of motion. Neck supple. Cardiovascular: Normal rate, regular rhythm and normal heart sounds. Pulmonary/Chest: Effort normal and breath sounds normal. Abdominal: Soft. Bowel sounds are normal. Musculoskeletal: Normal range of motion. No effusion or joint line tenderness of either knee but pt unable to fully flex left knee compared with right; obvious pain when walking - uses a cane Neurological: She is alert and oriented to person, place, and time. She has normal reflexes. Strength intact of both lower extremities Skin: Skin is warm and dry. Psychiatric: She has a normal mood and affect. Assessment: Plan: Cherelle was seen today for knee pain, nutrition counseling and other. Diagnoses and associated orders for this visit: Need for tdap vaccination Knee pain - Ambulatory Consult Physical Therapy - Ambulatory Consult Nutrition - supportive care with weight loss - reviewed making goals with patient Obesity, class iii, bmi 40-49.9 (morbid obesity) - Ambulatory Consult Nutrition Breast lobule hyperplasia - Ambulatory Consult Nutrition Fibromyalgia The current medical regimen is effective; continue present plan and medications. Ibs (irritable bowel syndrome) The current medical regimen is effective; continue present plan and medications. Arthritis - hydrocodone-acetaminophen (LORTAB) 5-500 mg tablet; Take 1 Tab by mouth every 6 hours as needed for Pain (up to 4 pills a day). Return in about 1 month (around 12/31/2012). * Emily Gibson LPN - 12/03/2012 1205 EST TDAp Given per order of Dr. Strong documented in this encounter Plan of Treatment Scheduled Referrals Name Type Priority Associated Diagnoses Orde r Schedule AMB CONSULT PHYSICAL THERAPY Outpatient Referral Routine Knee pain Ordered: 12/03/2012 AMB CONSULT NUTRITION Outpatient Referral Routine Obesity, Class III, BMI 40-49.9 (morbid obesity) ([facility]) ([facility]) Breast lobule hyperplasia Knee pain Ordered: 12/03/2012 documented as of this encounter Visit Diagnoses Diagnosis Need for Tdap vaccination- Primary Need for prophylactic vaccination with combined cqpnardnlt-eysddei-vtxndhrll (DTP) vaccine Knee pain Pain in joint, lower leg Obesity, Class III, BMI 40-49.9 (morbid obesity) ([facility]) Morbid obesity Breast lobule hyperplasia Hypertrophy of breast Fibromyalgia Mylagia and myositis, unspecified IBS (irritable bowel syndrome) Irritable bowel syndrome Arthritis Arthropathy, unspecified, site unspecified documented in this encounter Discontinued Medications Medication Sig Discontinue Reason Start Date End Da te enoxaparin (LOVENOX) 60 mg/0.6 mL injectionIndications:Hyp ercoagulable state (HCC-CMS) Inject 60 mg into the skin daily. Therapy completed 09/04/2012 12/03/2012 hydrocodone-acetaminophe n (LORTAB) 5-500 mg tabletIndications:Arthri tis Take 1 Tab by mouth every 6 hours as needed for Pain (up to 4 pills a day). Reorder 11/26/2012 12/03/2012 documented as of this encounter Care Teams Therapy Site Coordinator Relationship Specialty Start Date End Date Remedios Mehta MD [address] [place] [phone] PCP - General 02/19/09 01/04/15 documented as of this encounter
--- OUTSIDE RECORDS SUMMARY | 2024-06-24 02:21 | XMS_ITS | Encounter Summary ---
Author Organization [facility] Address [address] [place] [address] Care Team Providers Care Armored Cable Machine Operator Name Role Phone Remedios Mehta MD Primary Care Provider [phone] Encounter Details Date Type Department Care Team (Latest Contact Info) Description 07/20/2012 9:21 EDT - 07/20/2012 23:59 EDT Hospital Encounter [address] [address] Remedios Mehta MD [address] [place] [phone] Discharge Disposition: Auto Discharge Social History [...] Sig Dispensed Refills Start Date End Date lubiprostone (AMITIZA) 24 mcg capsule Take 24 mcg by mouth as needed. 09/27/2010 MULTIVITAMINS (MULTIVITAMIN ORAL) Take 1 Tab by mouth daily. acetaminophen (TYLENOL) 650 mg tablet Take 1 Tab by mouth every 4 hours as needed for Pain. 04/20/2010 06/14/2013 albuterol (ACCUNEB) 0.63 mg/3 mL nebulizer solution Take 0.63 mg by nebulization every 4 hours as needed for Wheezing. 08/29/2012 albuterol (PROVENTIL, VENTOLIN) 90 mcg/Actuation inhaler Inhale 2 Puffs as directed as needed for Wheezing. 08/29/2012 budesonide (PULMICORT) 200 mcg/actuation inhalerIndications:As thma,Hyperlipidemia,N eed for Tdap vaccination,Abdominal discomfort,IBS (irritable bowel syndrome),GERD (gastroesophageal reflux disease) Inhale 1 Puff as directed 2 times daily. 1 Inhaler 2 07/16/2012 08/25/2012 budesonide-formoterol HFA (SYMBICORT) 80-4.5 mcg/actuation HFAA inhalerIndications:As thma,Hyperlipidemia,N eed for Tdap vaccination,Abdominal discomfort,IBS (irritable bowel syndrome),GERD (gastroesophageal reflux disease) Inhale 2 Puffs as directed 2 times daily. 1 Inhaler 5 07/16/2012 06/05/2013 CALCIUM CARBONATE/VITAMIN D3 (CALCIUM 600 WITH VITAMIN D3 ORAL) Take 600 mg by mouth 2 times daily. 08/01/2012 duloxetine (CYMBALTA) 20 mg capsuleIndications:De pression, major Take 1 Cap by mouth 2 times daily. 60 Cap 4 04/04/2012 10/11/2012 fluocinonide (LIDEX) 0.05 % cream Apply to affect area(s) as directed. 60 g 3 03/23/2012 06/05/2013 fluticasone (FLONASE) 50 mcg/actuation nasal sprayIndications:Asth ma,Hyperlipidemia,Nee d for Tdap vaccination,Abdominal discomfort,IBS (irritable bowel syndrome),GERD (gastroesophageal reflux disease) Instill 1 [place] into both nostrils daily. 1 Bottle 5 07/16/2012 06/05/2013 hydrocodone-acetamino phen (LORTAB;VICODIN) 5-500 mg tabletIndications:Art hritis Take 1 Tab by mouth every 6 hours as needed for Pain (up to 4 pills a day). 120 Tab 3 06/04/2012 11/26/2012 hydroxychloroquine (PLAQUENIL) 200 mg tabletIndications:Art hropathy,Arthritis Take [...] Tab by mouth daily. 90 Tab 4 07/16/2012 08/22/2012 methotrexate 2.5 mg tabletIndications:Art hritis Take 6 [...] for sleep as needed 56 Tab 1 04/04/2012 08/15/2012 zafirlukast (ACCOLATE) 20 mg tabletIndications:Ast hma,Hyperlipidemia,Ne ed for Tdap vaccination,Abdominal discomfort,IBS (irritable bowel syndrome),GERD (gastroesophageal reflux disease) Take 1 Tab by mouth 2 times daily. 60 Tab 5 07/16/2012 08/22/2012 documented as of this encounter Discharge Disposition Disposition Code Departure Means Destination Auto Discharge Home documented in this encounter Plan of Treatment Not on file documented as of this encounter Visit Diagnoses Not on filedocumented in this encounter Care Teams Armored Cable Machine Operator Relationship Specialty Start Date End Date Remedios Mehta MD [address] [place] [phone] PCP - General 02/19/09 01/04/15 documented as of this encounter
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
--- OUTSIDE RECORDS SUMMARY | 2024-06-24 02:21 | XMS_ITS | Encounter Summary ---
Author Organization [facility] Address [address] [place] [address] Care Team Providers Care Embossing Machine Operator Name Role Phone Remedios Mehta MD Primary Care Provider [phone] Encounter Details Date Type Department Care Team (Late st Contact Info) Description 06/04/2012 Phlebotomy Only [facility] [address] [place] [address] Fall Internship, Outpatient Arthropathy; Encounter for long-term (current) use of other medications Social History Tobacco Use Types Packs/Day Years [...] Date/Time Associated Diagnosis Comments COMPLETE BLOOD COUNT AND DIFFERENTIAL Routine 06/04/2012 12:09 EDT Arthropathy Encounter for long-term (current) use of other medications COMPREHENSIVE METABOLIC PANEL (CMP) Routine 06/04/2012 12:09 EDT Arthropathy Encounter for long-term (current) use of other medications documented in this encounter Results * COMPREHENSIVE METABOLIC PANEL (CMP) (06/04/2012 12:09 EDT) Potassium 4.7 3.5 - 5.0 mEq/L [facility] Sodium 142 136 - 145 mEq/L [facility] Chloride 101 96 - 110 mEq/L [facility] CO2 29 24 - 32 mEq/L [facility] Total Alkaline Phosphatase 72 38 - 126 U/L [facility] Bilirubin, Total 0.9 0.2 - 1.3 mg/dl [facility] AST 26 15 - 46 U/L [facility] ALT 41 9 - 52 U/L [facility] Albumin 4.4 3.4 - 4.9 g/dl [facility] Total Protein 6.5 6.5 - 8.3 g/dl [facility] Creatinine 0.87 0.52 - 1.04 mg/dl [facility] GFR, Calculated >60 >60 ml/min/1.7 3m2 [facility] BUN 16 10 - 26 mg/dl [facility] Calcium 9.5 8.5 - 10.5 mg/dl [facility] Calculated Calcium 9.5 8.5 - 10.5 mg/dl [facility] Glucose, Serum 90 70 - 100 mg/dl [facility] Fasting? Unknown [facility] Blood specimen (specimen) 06/04/2012 12:09 EDT 06/04/2012 12:35 EDT Yovana Callejas MD CHEMISTRY & BLOO D GAS ORDERABLES [facility] [address] [place] [address] * HEMAGRAM AND DIFFERENTIAL (06/04/2012 12:09 EDT) WBC 7.22 4.0 - 12.4 K/cmm [facility] RBC 3.98 3.86 - 5.04 M/cmm [facility] Hemoglobin 13.0 11.6 - 15.2 gm/dl [facility] HCT 37.2 34.9 - 44.4 % [facility] MCV 94 81 - 98 fl [facility] MCH 32.7 26.7 - 33.3 pg [facility] MCHC 34.9 32.1 - 35.9 gm/dl [facility] PLT 255 141 - 320 K/cmm [facility] RDW-CV 13.1 11.7 - 14.6 % [facility] % Neutrophils 56.7 45.5 - 79.7 % [facility] % Lymphocytes 32.4 15.0 - 46.8 % [facility] % Monocytes 7.8 1.8 - 12.0 % [facility] % Eosinophils 2.5 0.6 - 6.9 % [facility] % Basophils 0.6 0.2 - 1.4 % [facility] ABS Neutrophils 4.10 2.20 - 8.85 K/cmm [facility] ABS Lymphs 2.34 1.09 - 3.30 K/cmm [facility] ABS Monocytes 0.56 0.1 - 0.8 K/cmm [facility] ABS Eosinophils 0.18 0.03 - 0.61 K/cmm [facility] ABS Basophils 0.05 0.01 - 0.11 K/cmm [facility] Type of Diff: Automated [facility] Blood specimen (specimen) 06/04/2012 12:09 EDT 06/04/2012 12:35 EDT Yovana Callejas MD PACKAGES & DNA P KERRI ORDERABLES [facility] [address] [place] [address] documented in this encounter Visit Diagnoses Diagnosis Arthropathy Arthropathy, unspecified, site unspecified Encounter for long-term (current) use of other medications documented in this encounter Care Teams Embossing Machine Operator Relationship Specialty Start Date End Date Remedios Mehta MD [address] [place] [phone] PCP - General 02/19/09 01/04/15 documented as of this encounter
--- OUTSIDE RECORDS SUMMARY | 2024-06-24 02:21 | XMS_ITS | Encounter Summary ---
Author Organization [facility] Address [address] [place] [address] Care Team Providers Care Irrigator Overhead Name Role Phone Remedios Mehta MD Primary Care Provider [phone] Reason for Visit * Reason Onset Date Comments Rectal Bleeding 07/08/2012 Encounter Details Date Type Department Care Team (Late st Contact Info) Description 07/08/[address] [address] Tessa Mcguire MD [address] [place] [id number] Rectal Bleeding Social History Tobacco Use Types Packs/Day Years [...] encounter Miscellaneous Notes * Telephone Encounter - Joao Salazar MD - 07/09/2012 1357 EDT Agree. Thanks. JOAO SALAZAR MD * Telephone Encounter - Emily Gibson LPN - 07/09/2012 1319 EDT Hasn't had a bowel today so she hasn't had any rectal bleeding. She is c/o abd pain especially whenshe is having a bowel movement. She states that she is having abdominal bloating, having some nausea, diaphoresis especially when strains to go to the bathroom , She is very constipated decrease appetite. Having chills at times. She just doesn't feel right. Advised to go to the ER or WICC for an evaluation. Patient Education Topic: abdominal pain, rectal bleeding, Nausea. Method: Verbal Taught to: Patient Barriers: None Outcomes: verbalized understanding I was supervised by Srini Salazar MD who was present and immediately available in the office suite. Emily Gibson LPN 07/09/2012 13:26 * Telephone Encounter - Emily Gibson LPN - 07/09/2012 1027 EDT LEFT MESSAGE TO CALL BACK * Telephone Encounter - Tessa Mcguire MD - 07/09/2012 0011 EDT TC from pt reporting that she has had BRBPR for the past 3 days. Associated with umbilical abd cramping, fevers, chills, shaking, nausea, and feeling flushed. Describes the stool as formed with clots attached to it. H/o chronic constipation and hemorrhoids. No sick contacts. Last colonoscopy in 2010 was normal. Tolerating fluids. Recommended for pt to talk with Nurse in am to arrange for appt with PCP office in the next 1-2 days. documented in this encounter Plan of Treatment Not on file documented as of this encounter Visit Diagnoses Not on filedocumented in this encounter Care Teams Irrigator Overhead Relationship Specialty Start Date End Date Remedios Mehta MD [address] [place] [phone] PCP - General 02/19/09 01/04/15 documented as of this encounter
--- OUTSIDE RECORDS SUMMARY | 2024-06-24 02:21 | XMS_ITS | Encounter Summary ---
Author Organization [facility] Address [address] [place] [address] Care Team Providers Care Double Needle Operator Name Role Phone Remedios Mehta MD Primary Care Provider [phone] Encounter Details Date Type Department Care Team (Late st Contact Info) Description 08/08/2012 Phlebotomy Only [address] [address] Family Service Assistant, Outpatient Hypercoagulation syndrome (CMS-HCC) (HCC-CMS); Leg pain, right; Arthropathy; Encounter for long-term (current) use of [...] Priority Date/Time Associated Diagnosis Comments DIFFERENTIAL Routine 08/08/2012 17:05 EDT PTT Routine 08/08/2012 17:05 EDT Hypercoagulation syndrome (CMS-HCC) (HCC-CMS) Leg pain, right PROTIME Routine 08/08/2012 17:05 EDT Hypercoagulation syndrome (CMS-HCC) (HCC-CMS) Leg pain, right D-DIMER Routine 08/08/2012 17:05 EDT Hypercoagulation syndrome (CMS-HCC) (HCC-CMS) Leg pain, right COMPLETE BLOOD COUNT Routine 08/08/2012 17:05 EDT COMPLETE BLOOD COUNT AND DIFFERENTIAL Routine 08/08/2012 17:05 EDT Arthropathy Encounter for long-term (current) use of other medications COMPREHENSIVE METABOLIC PANEL (CMP) Routine 08/08/2012 17:05 EDT Arthropathy Encounter for long-term (current) use of other medications documented in this encounter Results * DIFFERENTIAL (08/08/2012 17:05 EDT) % Neutrophils 53.4 45.5 - 79.7 % [facility] % Lymphocytes 36.1 15.0 - 46.8 % [facility] % Monocytes 7.7 1.8 - 12.0 % [facility] % Eosinophils 2.2 0.6 - 6.9 % [facility] % Basophils 0.6 0.2 - 1.4 % [facility] ABS Neutrophils 3.60 2.20 - 8.85 K/cmm [facility] ABS Lymphs 2.43 1.09 - 3.30 K/cmm [facility] ABS Monocytes 0.52 0.1 - 0.8 K/cmm [facility] ABS Eosinophils 0.15 0.03 - 0.61 K/cmm [facility] ABS Basophils 0.04 0.01 - 0.11 K/cmm [facility] Type of Diff: Automated [facility] 08/08/2012 17:0 5 EDT 08/08/2012 17:44 EDT Yovana Callejas MD HEMATOLOGY & PF4 ORDERABLES Performing Organization Address [facility] Co de Phone Number [facility] [address] [place] [address] * (ABNORMAL) HEMAGRAM (08/08/2012 17:05 EDT) WBC 6.73 4.0 - 12.4 K/cmm [facility] RBC 3.89 3.86 - 5.04 M/cmm [facility] Hemoglobin 12.5 11.6 - 15.2 gm/dl [facility] HCT 36.5 34.9 - 44.4 % [facility] MCV 94 81 - 98 fl [facility] MCH 32.2 26.7 - 33.3 pg [facility] MCHC 34.4 32.1 - 35.9 gm/dl [facility] PLT 324(H) 141 - 320 K/cmm [facility] RDW-CV 13.6 11.7 - 14.6 % [facility] 08/08/2012 17:0 5 EDT 08/08/2012 17:44 EDT Yovana Callejas MD HEMATOLOGY & PF4 ORDERABLES Performing Organization Address [facility] Co de Phone Number [facility] [address] [place] [address] * COMPREHENSIVE METABOLIC PANEL (CMP) (08/08/2012 17:05 EDT) Potassium 4.4 3.5 - 5.0 mEq/L [facility] Sodium 140 136 - 145 mEq/L [facility] Chloride 102 96 - 110 mEq/L [facility] CO2 28 24 - 32 mEq/L [facility] Total Alkaline Phosphatase 68 38 - 126 U/L [facility] Bilirubin, Total 0.8 0.2 - 1.3 mg/dl [facility] AST 20 15 - 46 U/L [facility] ALT 32 9 - 52 U/L [facility] Albumin 4.4 3.4 - 4.9 g/dl [facility] Total Protein 7.0 6.5 - 8.3 g/dl [facility] Creatinine 0.97 0.52 - 1.04 mg/dl [facility] GFR, Calculated >60 >60 ml/min/1.7 3m2 [facility] BUN 20 10 - 26 mg/dl [facility] Calcium 9.1 8.5 - 10.5 mg/dl [facility] Calculated Calcium 9.1 8.5 - 10.5 mg/dl [facility] Glucose, Serum 86 70 - 100 mg/dl [facility] Fasting? No [facility] Blood specimen (specimen) 08/08/2012 17:05 EDT 08/08/2012 17:44 EDT Yvoana Callejas MD CHEMISTRY & BLOO D GAS ORDERABLES Performing Organization Address [facility] de Phone Number [facility] [address] [place] [address] * PTT (08/08/2012 17:05 EDT) PTT 31 26 - 37 secs [facility] Comment:Therapeutic Heparin range: 65-100 seconds Blood specimen (specimen) 08/08/2012 17:05 EDT 08/08/2012 17:44 EDT Minoo Messer SANDWICH BOARD CARRIER HEMATOLOGY & PF4 OR DERABLES Performing Organization Address [facility] de Phone Number [facility] [address] [place] [address] * PROTIME (08/08/2012 17:05 EDT) Pro Time 10.3 9.5 - 13.1 secs [facility] I.N.R. 0.9 0.9 - 1.1 Ratio [facility] Comment: Moderate Intensity Coumadin INR = 2.0-3.0 Adjustments in anticoagulant therapy dose should be based upon the INR and NOT the Pro Time. Blood specimen (specimen) 08/08/2012 17:05 EDT 08/08/2012 17:44 EDT Minoo A Parenteau SANDWICH BOARD CARRIER HEMATOLOGY & PF4 OR DERABLES Performing Organization Address [facility] Co de Phone Number [facility] [address] [place] [address] * D-DIMER (08/08/2012 17:05 EDT) D-Dimer <200 <230 ng/mL [facility] Comment:CUTOFF VALUE FOR THE EXCLUSION OF DVT and PE: 230 ng/mL D-dimer units Blood specimen (specimen) 08/08/2012 17:05 EDT 08/08/2012 17:44 EDT Minoo Leahyeau SANDWICH BOARD CARRIER HEMATOLOGY & PF4 OR DERABLES Performing Organization Address [facility] de Phone Number [facility] [address] [place] [address] documented in this encounter Visit Diagnoses Diagnosis Hypercoagulation syndrome (HCC-CMS) Primary hypercoagulable state Leg pain, right Pain in limb Arthropathy Arthropathy, unspecified, site unspecified Encounter for long-term (current) use of other medications documented in this encounter Care Teams Double Needle Operator Relationship Specialty Start Date End Date Remedios Mehta MD [address] [place] [phone] PCP - General 02/19/09 01/04/15 documented as of this encounter
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
--- OUTSIDE RECORDS SUMMARY | 2024-06-24 02:21 | XMS_ITS | Encounter Summary ---
Author Organization [facility] Address [address] [place] [address] Care Team Providers Care Clam Grower Name Role Phone Remedios Mehta MD Primary Care Provider [phone] Encounter Details Date Type Department Care Team (Late st Contact Info) Description 09/04/2012 Orders Only [facility] Hematology & Oncology - [facility] [address] [place], [place] [address] Ly [place], RN [address] [place] [address] Hypercoagulable state (CMS-HCC) (HCC-CMS) (Primary Dx) Social [...] Dispensed Refills Start Date End Da te enoxaparin (LOVENOX) 60 mg/0.6 mL injectionIndications:Hyp ercoagulable state (HCC-CMS) Inject 60 mg into the skin daily. 10 Syringe 0 09/04/2012 12/03/2012 documented in this encounter Plan of Treatment Not on file documented as of this encounter Visit Diagnoses Diagnosis Hypercoagulable state (HCC-CMS)- Primary Primary hypercoagulable state documented in this encounter Care Teams Clam Grower Relationship Specialty Start Date End Date Remedios Mehta MD [address] [place] [phone] PCP - General 02/19/09 01/04/15 documented as of this encounter
--- OUTSIDE RECORDS SUMMARY | 2024-06-24 02:21 | XMS_ITS | Encounter Summary ---
Author Organization [facility] Address [address] [place] [address] Care Team Providers Care Rubber Worker Name Role Phone Remedios Mehta MD Primary Care Provider [phone] Reason for Visit * Reason Onset Date Comments New Patient Visit 07/19/2012 Encounter Details Date Type Department Care Team (Late st Contact Info) Description 07/19/2012 Telephone [facility] Pulmonology & Critical Care - [facility] [address] [place] [address] Remedios Mehta MD [address] [place] [phone] New Patient Visit Social History Tobacco Use Types Packs/Day Years [...] encounter Miscellaneous Notes * Telephone Encounter - Leatha Roche - 07/19/2012 0950 EDT Patient needs an NPV for pulmonary calcification and history of rheumatologic ds. Per Dr. Strong from [facility]. Notes are in [facility]. Please call patient. documented in this encounter Plan of Treatment Not on file documented as of this encounter Visit Diagnoses Not on filedocumented in this encounter Care Teams Rubber Worker Relationship Specialty Start Date End Date Remedios Mehta MD [address] [place] [phone] PCP - General 02/19/09 01/04/15 documented as of this encounter
--- OUTSIDE RECORDS SUMMARY | 2024-06-24 02:21 | XMS_ITS | Encounter Summary ---
Author Organization [facility] Address [address] [place] [address] Care Team Providers Care Abnormal Psychology Teacher Name Role Phone Remedios Mehta MD Primary Care Provider [phone] Reason for Visit * Reason Onset Date Comments Follow-up 04/23/2012 Encounter Details Date Type Department Care Team (Late st Contact Info) Description 04/23/2012 Telephone [facility] Rheumatology & Immunology - [facility] [address] [place], [place] [phone] Delia Perez, MARIA [address] [facility] [address] [place] [phone] Follow-up Social History Tobacco Use Types Packs/Day Years [...] encounter Miscellaneous Notes * Telephone Encounter - Sushila Ledesma - 04/23/2012 1053 EDT Patient returned Anh Oceola's call documented in this encounter Plan of Treatment Not on file documented as of this encounter Visit Diagnoses Not on filedocumented in this encounter Care Teams Abnormal Psychology Teacher Relationship Specialty Start Date End Date Remedios Mehta MD [address] [place] [phone] PCP - General 02/19/09 01/04/15 documented as of this encounter
--- OUTSIDE RECORDS SUMMARY | 2024-06-24 02:21 | XMS_ITS | Encounter Summary ---
Author Organization [facility] Address [address] [place] [address] Care Team Providers Care Commercial Helicopter Pilot Name Role Phone Remedios Mehta MD Primary Care Provider [phone] [phone] Reason for Visit * Reason Comments Joint Pain hands, knees, should ers, back, and neck Encounter Details Date Type Department Care Team (Late st Contact Info) Description 06/04/2012 10:40 EDT Office Visit [facility] Rheumatology & Immunology - [facility] [address] [place] [address] Yovana Callejas MD [address] [place] [address] [phone] Arthropathy (Primary Dx); Encounter for long-term (current) use of other medications; Arthritis Social History Tobacco Use Types Packs/Day [...] Sign Reading Time Taken Comments Blood Pressure 100/60 06/04/2012 1058 EDT Pulse 68 06/04/2012 1058 EDT Temperature - - Respiratory Rate 14 06/04/2012 1058 EDT Oxygen Saturation - - Inhaled Oxygen Concentration - - Weight 99.3 kg (219 lb) 06/04/2012 1058 EDT Height 153.7 cm (5' 0.5) 06/04/2012 1058 EDT Body Mass Index 42.07 06/04/2012 1058 EDT documented in this encounter Functional Status Cognitive Status Response Date of Assessm ent Because of a physical, menta l, or emotional condition, do you have serious difficulty concentrating, remembering, or making decisions? (5 years old or older) Yes 04/15/2010 documented as of this encounter Patient Instructions * Patient Instructions* Yovana Callejas MD - 06/04/2012 11:54 EDT Continue current medications. Hydrocodone up to 4 a day. Labs every 3-4 months including today Hold Methotrexate week of surgery (if this happens) No Enbrel for now. documented in this encounter Ordered Prescriptions Prescription Sig Dispensed Refills Start Date End Da te hydrocodone-acetaminophen (LORTAB;VICODIN) 5-500 mg tabletIndications:Arthriti s Take 1 Tab by mouth every 6 hours as needed for Pain (up to 4 pills a day). 120 Tab 3 06/04/2012 11/26/2012 methotrexate 2.5 mg tabletIndications:Arthriti s Take 6 Tabs by mouth once a week. 24 Each 11 06/04/2012 04/29/2013 hydroxychloroquine (PLAQUENIL) 200 mg tabletIndications:Arthropa thy,Arthritis Take 1 Tab by mouth 2 times daily. 60 Tab 11 06/04/2012 01/30/2013 documented in this encounter Progress Notes * Yovana Callejas MD - 06/04/2012 1138 EDT Subjective: Patient ID: Cherelle Husain is an 52 y.o. female. Chief Complaint Patient presents with ??? Joint Pain hands, knees, shoulders, back, and neck HPI Here in follow up. Has been seen by pain clinic. Seeing them for injections. Has bulging disc in neck and lower spine. Having pain down both arms. Some tingling in finger tips. Anxious about injections but plans to keep these appointments. Had dose of methotrexate increased at recent visit, still sore in feet and hands. Feels puffy and swollen across MCPS. Uses hydrocodone with relief. Discussed Enbrel, however, does not want to consider this medication currently due to concerns about its side effects. Has am stiffness. Some tinglingin her feet and hands are stiff last week. No other neurological symptoms. Minimal alcohol use. Does not smoke. Considering recreational drugs but concerned about side effects. Had a fall and injury to left knee. Has been walking with a cane. Had xray of her left knee seeing ortho soon. Has been off of work. 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 Patient Active Problem List Diagnoses ??? Myalgia [...] IBS (irritable bowel syndrome) ??? Factor PI Past Surgical History Procedure Date ??? Appendectomy ??? Hernia repair ??? Carpal tunnel release 22 years ago right endoscopic by dr. Hamilton ??? Joint replacement 04/15/2010 Right TKR ([facility]) ??? Knee surgery right Family History Problem Relation Age of Onset ??? Diabetes Mother ??? High Blood Pressure Father ??? High Cholesterol Father Social History Substance Use Topics ??? Smoking status: Former Smoker -- 1.0 packs/day for 20 years Types: Cigarettes Quit date: 04/23/1996 ??? Smokeless tobacco: Never Used Comment: quit 20+ yr ago ??? Alcohol Use: Yes very occasional Current Outpatient Prescriptions on File Prior to [...] fluticasone (FLONASE) 50 mcg/Actuation nasal spray 1 [place] by Nasal route daily. 1 Bottle 5 [...] Soy Constipation ??? Wheat Containing Prod Constipation ROS - See check list in this encounter REVIEW OF SYSTEMS: Yes No Yes No Fever x Joint pain x x Fatigue x Muscle pain x x Night sweats x Morning stiffness x Weight change x If yes, duration Gain or loss? loss Numbness/tingling x Eye discomfort x Headaches x Mouth/Nose sores x Muscle weakness x Chest pain x Burning on urination x Palpitations x Dark/bloody urine x Shortness of breath x Frequent urination x Cough x Trouble sleeping x Nausea/vomiting x Change in mood x Stomach pains/cramps IBS x Nervous or anxious x Blood in stools x Sad or depressed x Diarrhea x Skin rash/changes x Constipation x Sun induced rash x Itching x Hand/Foot color change w/cold x Hair Loss x Objective: BP 100/60 Pulse 68 Resp 14 Ht 153.7 cm (60.5) Wt 99.338 kg (219 lb) BMI 42.07 kg/m2 LMP 03/09/2010 Physical Exam Constitutional: She is oriented to person, place, and time. She appears well- developed and well-nourished. No distress. HENT: Head: Normocephalic and atraumatic. Mouth/Throat: No oropharyngeal exudate. Eyes: Conjunctivae are normal. Neck: Neck supple. Tender at end rom Cardiovascular: Normal rate. Pulmonary/Chest: Effort normal and breath sounds normal. Musculoskeletal: Normal range of motion. She exhibits tenderness (tender over MCPS, no synovitis). Anterior chest wall tenderness over sc joints consistent with fibromyalgia. Tender over medial aspect of left knee Neurological: She is alert and oriented to person, place, and time. She displays normal reflexes. She exhibits normal muscle tone. Skin: Skin is warm and dry. Psychiatric: She has a normal mood and affect. Her behavior is normal. Judgment and thought contentnormal. Assessment: Inflammatory arthritis is stable Use of hydrocodone for pain is stable, no signs of abuse Plan: Cherelle was seen today for joint pain. Diagnoses and associated orders for this visit: Arthropathy - hydroxychloroquine (PLAQUENIL) 200 mg tablet; Take 1 Tab by mouth 2 times daily. - Hemagram & Differential; Standing - Comprehensive Metabolic Panel (CMP); Standing Encounter for long-term (current) use of other medications - Hemagram & Differential; Standing - Comprehensive Metabolic Panel (CMP); Standing Arthritis - hydroxychloroquine (PLAQUENIL) 200 mg tablet; Take 1 Tab by mouth 2 times daily. - methotrexate 2.5 mg tablet; Take 6 Tabs by mouth once a week. - hydrocodone-acetaminophen (LORTAB;VICODIN) 5-500 mg tablet; Take 1 Tab by mouth every 6 hours as needed for Pain (up to 4 pills a day). Return appointment in 3 months Patient was advised to contact me if there are any problems. Otherwise follow up as scheduled. NO barriers to learning identified. The patient was in agreement with the plan of care as outlined above Yovana Callejas MD documented in this encounter Plan of Treatment Not on file documented as of this encounter Visit Diagnoses Diagnosis Arthropathy- Primary Arthropathy, unspecified, site unspecified Encounter for long-term (current) use of other medications Arthritis Arthropathy, unspecified, site unspecified documented in this encounter Discontinued Medications Medication Sig Discontinue Reason Start Date End Da te albuterol-ipratropium (DUONEB) 0.5-2.5 mg/3 mL nebulizer solution Take 3 mL by nebulization every 4 hours as needed for Wheezing. Duplicate Therapy 06/04/2012 hydroxychloroquine (PLAQUENIL) 200 mg tabletIndications:Art hropathy Take 1 Tab by mouth 2 times daily. Reorder 11/18/2011 06/04/2012 methotrexate 2.5 mg tablet Take 6 Tabs by mouth once a week. Reorder 03/05/2012 06/04/2012 hydrocodone-acetamino phen (LORTAB;VICODIN) 5-500 mg per tabletIndications:Art hritis Take 1 Tab by mouth every 8 hours as needed for Pain. Reorder 03/05/2012 06/04/2012 documented as of this encounter Care Teams Commercial Helicopter Pilot Relationship Specialty Start Date End Date Remedios Mehta MD [address] [place] [phone] PCP - General 02/19/09 01/04/15 documented as of this encounter
--- OUTSIDE RECORDS SUMMARY | 2024-06-24 02:21 | XMS_ITS | Encounter Summary ---
Author Organization [facility] Address [address] [place] [address] Care Team Providers Care Advanced Research Programs Director Name Role Phone Remedios Mehta MD Primary Care Provider [phone] [phone] Reason for Visit * Reason Onset Date Comments Medications Refill 06/07/2012 Encounter Details Date Type Department Care Team (Late st Contact Info) Description 06/07/[address] [address] Remedios Mehta MD [address] [place] [phone] Medications Refill Social History Tobacco Use [...] Dispensed Refills Start Date End Da te pantoprazole (PROTONIX) 40 mg tabletIndications:GERD (gastroesophageal reflux disease) Take 1 Tab by mouth daily. 90 Tab 1 06/07/2012 12/12/2012 loratadine (CLARITIN) 10 mg tabletIndications:Allergic rhinitis Take 1 Tab by mouth daily. 90 Tab 1 06/07/2012 12/25/2012 documented in this encounter Miscellaneous Notes * Telephone Encounter - Nathalia Ross - 06/07/2012 1156 EDT Medication Requested - CLARITIN 10MG,PANTOPRAZOLE 40MG Last Refill Date - 06.08.11,11.21.11 Last Visit Date -05.24 Next Visit Date - NONE Is patient out of medication?UNK documented in this encounter Plan of Treatment Not on file documented as of this encounter Visit Diagnoses Diagnosis Allergic rhinitis Allergic rhinitis, cause unspecified GERD (gastroesophageal reflux disease) Esophageal reflux documented in this encounter Discontinued Medications Medication Sig Discontinue Reason Start Date End Da te loratadine (CLARITIN) 10 mg tabletIndications:Allergi c rhinitis Take 1 Tab by mouth daily. Reorder 06/08/2011 06/07/2012 pantoprazole (PROTONIX) 40 mg tabletIndications:GERD (gastroesophageal reflux disease) Take 1 Tab by mouth daily. Reorder 11/21/2011 06/07/2012 documented as of this encounter Care Teams Advanced Research Programs Director Relationship Specialty Start Date End Date Remedios Mehta MD [address] [place] [phone] PCP - General 02/19/09 01/04/15 documented as of this encounter
--- OUTSIDE RECORDS SUMMARY | 2024-06-24 02:21 | XMS_ITS | Encounter Summary ---
Author Organization [facility] Address [address] [place] [address] Care Team Providers Care Bell Clerk Name Role Phone Remedios Mehta MD Primary Care Provider [phone] [phone] Reason for Visit * Reason Comments Neck Pain Encounter Details Date Type Department Care Team (Late st Contact Info) Description 09/03/2012 9:30 EST Office Visit [facility] Interventional Pain [address] [place] [address] Abundio Tubbs, DO [address] [facility] [address] [place], [place] [address] Neck pain; Fibromyalgia; Low back pain Social History Tobacco Use Types [...] Sign Reading Time Taken Comments Blood Pressure 111/69 09/03/2012 0908 EST Pulse 62 09/03/2012 0908 EST Temperature 36.3 ??C (97.4 ??F) 09/03/2012 0908 EST Respiratory Rate 20 09/03/2012 0908 EST Oxygen Saturation - - Inhaled Oxygen Concentration - - Weight 95.7 kg (211 lb) 09/03/2012 0908 EST Height 152.4 cm (5') 09/03/2012 0908 EST Body Mass Index 41.21 09/03/2012 0908 EST documented in this encounter Functional Status Cognitive Status Response Date of Assessm ent Because of a physical, menta l, or emotional condition, do you have serious difficulty concentrating, remembering, or making decisions? (5 years old or older) Yes 04/15/2010 documented as of this encounter Ordered Prescriptions Prescription Sig Dispensed Refills Start Date End Da te naproxen (NAPROSYN) 500 mg tablet Take 1 Tab by mouth 2 times daily with breakfast and dinner. 120 Each 0 09/03/2012 09/12/2012 documented in this encounter Progress Notes * Dnady Lindquist MD - 09/03/2012945 EST [facility] Follow Up Note Patient Name: Cherelle Husain : 1960 Date of Service: 09/03/2012 Interval History: Mrs. Husain presents for follow up for her chronic neck and arm pain. She had a cervical YANET 07/11 and unfortunately had a severe headache afterwards suspicious for spinal headache.She reports some benefit from the injection with 60% relief for a few days about a week after but it was not long lasting. Her pain has now returned as previous. She is also currently on a steroid taper from her PCP for pneumonia and stopped Abx on Aug 30. Her pain is primarily in her neck and shoulder-blades, radiates down her hand into the lateral portions of her hands. No difference in her pain on the multiple steroid doses. She has tried lyrica in the past but had intolerable side effects. Remembers taking gabapentin but no recall of dose. Never been on elavil. Currently takes trazadone for sleep, 1-2 vicodin/day for pain, aleve BID, and cymbalta. ROS: Patient reports recent PNA, SOB, steroid doses, and as per hpi as pertinent positives. CONSTITUTIONAL: Patient does not report current fevers, nausea, vomiting. NEURO/EYES: Patient does not report headaches, dizziness, or visual changes. HEME: Patient does not report any known coagulopathies. PULM/CARDIAC: Patient does not report current shortness of breath or chest pain. GI/: Patient does not report bowel or bladder incontinence. Physical Examination: Vital signs: Filed Vitals: 09/03/12 0908 BP: 111/69 Pulse: 62 Temp: 36.3 ??C (97.4 ??F) TempSrc: Tympanic Resp: 20 Height: 152.4 cm (60) Weight: 95.709 kg (211 lb) General:awake, alert, cooperative, no apparent distress HEAD: normocephalic and atraumatic EYES: EOMI and Anicteric Assessment: 1. Encounter Diagnoses Name Primary? Neck pain ??? Fibromyalgia ??? Low back pain \ Plan: Unfortunately at this time I do not believe any further steroid injections would be helpful. She failed to respond to our injection and she has been on high dose steroids since with no change in any of her pain symptoms. As her pain is primarily neck and shoulder, her pain could be facetogenic. Diagnostic MBBs would be a simple way to evaluate this with RFA if positive x 2. Beyond that, have prescribed her 500 mg Aleve BID. Suggest she discuss with her PCP changing trazadone for elavil as the elavil will help her sleep and also decrease her pain. After we finish addressing her neck pain she would like to look at her low back and buttock pain inthe future. Follow up in 4 week(s) for medication management, further evaluation and cervical medial branch blocks Attending attestation: I saw and examined the patient with the resident/fellow. I agree with the findings and plan of care documented in the resident's/fellow's note. 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 (Solids since midnight & liquids for 4 hrs) yes Blood Thinners: Is patient on Blood Thinners? no If yes, taking? If stopped, who authorized stopping? Related comments: Infections: Any recent infections, fever of illnesses? no If on antibiotics, is it 7-10 days past the date of completion of antibiotics? : (for females of child-bearing age) no Is there a chance current ? Other: documented in this encounter Plan of Treatment Not on file documented as of this encounter Visit Diagnoses Diagnosis Neck pain Cervicalgia Fibromyalgia Mylagia and myositis, unspecified Low back pain Lumbago documented in this encounter Care Teams Bell Clerk Relationship Specialty Start Date End Date Remedios Mehta MD [address] [place] [phone] PCP - General 02/19/09 01/04/15 documented as of this encounter
--- OUTSIDE RECORDS SUMMARY | 2024-06-24 02:21 | XMS_ITS | Encounter Summary ---
Author Organization [facility] Address [address] [place] [address] Care Team Providers Care Professor Of Practice Name Role Phone Remedios Mehta MD Primary Care Provider [phone] [phone] Reason for Visit * Reason Onset Date Comments Medications Refill 06/04/2012 Encounter Details Date Type Department Care Team (Late st Contact Info) Description 06/04/2012 Refill [facility] Rheumatology & Immunology - [facility] [address] [place] [address] Robyn Nathan, RN Medications Refill Social History Tobacco Use [...] Telephone Encounter - Robyn Nathan RN - 06/04/2012 7069 EDT Rx called in for Hydrocodone documented in this encounter Plan of Treatment Not on file documented as of this encounter Visit Diagnoses Not on filedocumented in this encounter Care Teams Professor Of Practice Relationship Specialty Start Date End Date Remedios Mehta MD [address] [place] [phone] PCP - General 02/19/09 01/04/15 documented as of this encounter
--- OUTSIDE RECORDS SUMMARY | 2024-06-24 02:21 | XMS_ITS | Encounter Summary ---
Author Organization [facility] Address [address] [place] [address] Care Team Providers Care Deputy County Counsel Name Role Phone Remedios Mehta MD Primary Care Provider [phone] [phone] Reason for Visit * Reason Onset Date Comments Results 07/23/[address] scan , [place] Encounter Details Date Type Department Care Team (Late st Contact Info) Description 07/23/[address] [address] Remedios Mehta MD [address] [place] [phone] Results (labs and CT scan, [place] ) Social History Tobacco Use Types Packs/Day [...] encounter Miscellaneous Notes * Telephone Encounter - Jaz De Leon - 07/24/2012 1442 EDT Pt calling back to say she thinks Dr. Strong called her.Please call back. * Telephone Encounter - Tessa Spears - 07/23/2012 1445 EDT Patient is returning a call from Dr. Strong to discuss results of her labs and tests. documented in this encounter Plan of Treatment Not on file documented as of this encounter Visit Diagnoses Not on filedocumented in this encounter Care Teams Deputy County Counsel Relationship Specialty Start Date End Date Remedios Mehta MD [address] [place] [phone] PCP - General 02/19/09 01/04/15 documented as of this encounter
--- OUTSIDE RECORDS SUMMARY | 2024-06-24 02:21 | XMS_ITS | Encounter Summary ---
Author Organization [facility] Address [address] [place] [address] Care Team Providers Care Science Education Professor Name Role Phone Remedios Mehta MD Primary Care Provider [phone] [phone] Reason for Visit * Reason Onset Date Comments Procedure 07/31/2012 surgery Encounter Details Date Type Department Care Team (Late st Contact Info) Description 07/31/2012 Telephone [facility] Hematology & Oncology - [facility] [address] [place], [place] [id number] Joey Preciado [address] [place] [address] Procedure (surgery) Social History Tobacco Use Types Packs/Day Years [...] Miscellaneous Notes * Telephone Encounter - Leatha Bright V. - 07/31/2012 1421 EDT Pt last saw Srini Preciado 06/2010. Pt was told that if she ever has surgery she should come back to clinic. Pt having OBGYN surgery in August. Would like to make an appt to be seen. documented in this encounter Plan of Treatment Not on file documented as of this encounter Visit Diagnoses Not on filedocumented in this encounter Care Teams Science Education Professor Relationship Specialty Start Date End Date Remedios Mehta MD [address] [place] [phone] PCP - General 02/19/09 01/04/15 documented as of this encounter
--- OUTSIDE RECORDS SUMMARY | 2024-06-24 02:21 | XMS_ITS | Encounter Summary ---
Author Organization [facility] Address [address] [place] [address] Care Team Providers Care Orthopaedic General Name Role Phone Remedios Mehta MD Primary Care Provider [phone] Reason for Visit * Reason Comments Knee Injury left knee doi 7.26.1 2 Encounter Details Date Type Department Care Team (Late st Contact Info) Description 07/09/2012 9:40 EDT Office Visit [facility] Total Joint Program - [address] [place], [place] [id number] Yonathan Moreland MD Left knee DJD (Primary Dx); Internal derangement of knee; Obesity (BMI 30-39.9) Discharge Disposition: Auto Discharge Social History Tobacco [...] - Inhaled Oxygen Concentration - - Weight 97.5 kg (215 lb) 07/09/2012 1000 EDT Height 152.4 cm (5') 07/09/2012 1000 EDT Body Mass Index 41.99 07/09/2012 1000 EDT documented in this encounter Functional Status Cognitive Status Response Date of Assessm ent Because of a physical, menta l, or emotional condition, do you have serious difficulty concentrating, remembering, or making decisions? (5 years old or older) Yes 04/15/2010 documented as of this encounter Patient Instructions * Patient Instructions* Yonathan Moreland MD - 07/09/2012 10:23 EDT INSTRUCTIONS FOR KNEE ARTHRITIS CARE: 1) Home exercise program including low impact aerobic exercise - www.[employer].org Walking for exercise three times a week if tolerable (cycling or swimming as alternatives) 2) Modest weight reduction (5% goal) if your weight is more than 10% above your ideal body weight... Discuss with your primary care physician. 3) May use over the counter pain arthritis relievers (Acetaminophen and/or Aleve), taken with food in your stomach & do not exceed dosing written on the container. Be aware of the potential side effects! 4) Consider knee injection(s) here in my office if the medication(s) do not address your symptoms or you have side effects that interfere with taking the arthritis pain relievers 4) Follow-up with your Primary Care Provider for routine health maintenance. 5) I encourage you to learn about your joint problems and here are suggested high quality on-line information sources: www.orthoinfo.aa[employer].org/informedPatient.cfm - Review total knee module www.[employer].org/jointcare www.saveyourknees.org 6) I encourage you to learn about your joint problems and recommend this book: Heal Your Knees: How to Prevent Knee Surgery and What to Do If You Need It by Dr. Barney De Jesus 7) Consider calling for a follow-up visit if your symptoms of pain and/or limited functional are not adequately addressed with the non-operative therapies described above. documented in this encounter Discharge Disposition Disposition Code Departure Means Destination Auto Discharge documented in this encounter Progress Notes * Yonathan Moreland MD - 07/09/2012 1018 EDT Established knee pain follow-up note: HPI: Cherelle Don Rodrigue returns today for scheduled follow-up of her left knee area pain. She reports both WB arthralgia and intermittent locking up The patient's symptoms are gradually worsening The patient has tried OTC pain relievers with marginal relief. The patient has participated in a structured exercise program in [employer] [place] with good success. The patient has not had injections of cortisone in the left knee joint. The patient has not had injections of hyaluronic acid in the left knee joint. No prior surgery on this knee. S/p Rt TKR in March 2010 and doing fairly well Previous office notes and imaging studies reviewed. Medication reconciliation process completed. PHYSICAL EXAMINATION: General: Well-appearing female in no acute distress. Mood and affect appropriate. Vital Signs: A and O x3. Arises from seated position without knee pain, normal station with level pelvis in standing position. The patient does not have a limp with a short stance with ambulation about the examining room. Pelvis and Hips: No tenderness or masses, hip ROM is symmetric without reproduction of patient's presenting leg complaint(s) Right knee: Skin: Intact to inspection and palpation. No effusion. Non-tender incision Standing alignment: neutral, 4 degrees ROM 0 to 105 Manual muscle testing: extension & flexion 4+/5 or better She does not have tenderness over the medial compartment, does not have tenderness over the lateralcompartment and does not have tenderness over the patellofemoral compartment. The patient does not have coronal, sagittal or rotatory instability. Left knee: Skin: Intact to inspection and palpation. No effusion. Standing alignment: genu varum, 5 degrees ROM +5 to 105 Manual muscle testing: extension & flexion 4+/5 or better. She does have tenderness over the medial compartment, does not have tenderness over the lateral compartment and does not have tenderness over the patellofemoral compartment. She does not have a positive Odette and does not have a palpable Hall's cyst. The patient does not have coronal, sagittal or rotatory instability. REVIEW OF IMAGING: Most recent imaging was independently reviewed in the room today with the patient. New weight bearing knee films were personally reviewed and reveal: Right knee: Well-aligned and well-fixed TKR components Left knee: Kellgren-Kane grade 3 medial tibiofemoral changes No loose bodies or ectopic calcifications seen. Normal soft tissue patterns ASSESSMENT: left knee OA resulting in mild to moderate pain, decreased\ range of motion and functional limitations that do negatively impact on the activities of daily living with self-care and primary interventions. S/p rt TKR two years Obesity Patient Active Problem List Diagnoses ??? Myalgia [...] Cervical spondylosis ??? Lumbosacral spondylosis without myelopathy MEDICAL DECISION-MAKING and PLAN: Patient Education: Over the course of today's 18 minute office visit, we discussed the diagnosis, differential diagnosis, normal anatomy, the pathoanatomy and this patient???s pertinent comorbidities. We also discussed the spectrum of non-operative and operative treatment options using shared decision-making techniques, printed educational materials and/or [employer] online decision support tools. The patient may also use an assistive aid, and if using a cane, it should generally be used in the hand opposite the symptomatic knee. The patient may use oral non-narcotic analgesics for pain. The patient's questions were solicited and responded to with the patient's verbalized satisfaction. Diagnostic: As a result of this comprehensive discussion, we have agreed to proceed with the following diagnostic plan: No additional studies at this time. Non-operative treatment plan: An appropriate informed choice non-operative treatment discussion was completed and we have collectively agreed to proceed with the following therapeutic plan: Continued activity modification to limit symptoms OTC NSAID trial (oral and/or topical) Home exercise program with skilled PT referral for UE and LE strengthening, consider TENS for pain relief Arthritis pool program in place Intra-articular cortisteroid/bupivicaine injection offered Hyaluronic acid injection trial not indicated Assistive device for ambulation Surgical options: We discussed that she would be a candidate for a total knee arthroplasty if her symptoms could not be controlled with a comprehensive non-operative management plan. DISPOSITION: Follow-up in [facility] prn Cc: Remedios Strong MD documented in this encounter Plan of Treatment Not on file documented as of this encounter Visit Diagnoses Diagnosis Left knee DJD- Primary Osteoarthrosis, unspecified whether generalized or localized, lower leg Internal derangement of knee Unspecified internal derangement of knee Obesity (BMI 30-39.9) Obesity, unspecified documented in this encounter Care Teams Orthopaedic General Relationship Specialty Start Date End Date Remedios Mehta MD [address] [place] [id number] PCP - General 02/19/09 01/04/15 documented as of this encounter
--- OUTSIDE RECORDS SUMMARY | 2024-06-24 02:21 | XMS_ITS | Encounter Summary ---
Author Organization [facility] Address [address] [place] [address] Care Team Providers Care Boring Machine Operator Helper Name Role Phone Remedios Mehta MD Primary Care Provider [phone] Reason for Visit * Reason Comments Rectal Bleeding decreased appetite x 2 weeks.1st episode of bleeding 2 weeks ago with constipation and reoccured 2 days ago. pt has been clots. bloating and tenderness.c/o sweats. nausea. fatigue. pt has lightheadedness after straining. Encounter Details Date Type Department Care Team (Late st Contact Info) Description 07/09/2012 13:41 EDT - 07/09/2012 19:[address] [facility] - [address] [id number] Dayna Patterson, HE[address] [place], [place] [id number] Urgency of urination; Stress incontinence, female; Constipation Discharge Disposition: Home or Self Care [...] Sign Reading Time Taken Comments Blood Pressure 134/63 07/09/2012 1518 EDT Pulse 62 07/09/2012 1521 EDT Temperature 36.3 ??C (97.3 ??F) 07/09/2012 1521 EDT Respiratory Rate 14 07/09/2012 1521 EDT Oxygen Saturation - - Inhaled Oxygen [...] this encounter Discharge Instructions * Discharge Instructions* Dayna Patterson NP - 07/09/2012 19:05 EDT Please increase her liquid intake to include many different types of fluids including Pedialyte, Gatorade, tea, apple juice or cranberry juice and sodas. Avoid caffeine and avoid narcotic medication as much as possible because this can cause constipation. If you have any more taste of stool, go to emergency department. documented in this encounter Medications at Time [...] needed for Wheezing. 08/29/2012 budesonide (PULMICORT) 200 mcg/Inhalation inhaler Inhale 1 Puff as directed 2 times daily. 1 Inhaler 2 02/10/2011 07/16/2012 budesonide-formoterol (SYMBICORT) 80-4.5 mcg/Actuation HFAA inhaler Inhale 2 Puffs as directed 2 times daily. 1 Inhaler 5 03/17/2011 07/16/2012 CALCIUM CARBONATE/VITAMIN D3 (CALCIUM 600 WITH VITAMIN D3 ORAL) Take 600 mg by mouth 2 times daily. 08/01/2012 duloxetine (CYMBALTA) 20 mg capsuleIndications:De pression, major Take 1 Cap by mouth 2 times daily. 60 Cap 4 04/04/2012 10/11/2012 fluocinonide (LIDEX) 0.05 % cream Apply to affect area(s) as directed. 60 g 3 03/23/2012 06/05/2013 fluticasone (FLONASE) 50 mcg/Actuation nasal spray 1 [place] by Nasal route daily. 1 Bottle 5 03/17/2011 07/16/2012 hydrocodone-acetamino phen (LORTAB;VICODIN) 5-500 mg tabletIndications:Art hritis [...] 06/07/2012 12/25/2012 lovastatin (MEVACOR) 10 mg tabletIndications:Hyp erlipidemia Take 1 Tab by mouth daily. 90 Tab 4 07/06/2011 07/16/2012 methotrexate 2.5 mg tabletIndications:Art hritis Take 6 [...] 04/04/2012 08/15/2012 zafirlukast (ACCOLATE) 20 mg tabletIndications:Ast hma Take 1 Tab by mouth 2 times daily. 60 Tab 5 09/19/2011 07/16/2012 documented as of this encounter Discharge Disposition Disposition Code Departure Means Destination Home or Self Care Walk-out Home documented in this encounter ED Notes * Leida Felipe RN - 07/09/2012 1901 EDT HEIDE Patterson is aware she has a migraine * Dayna Patterson NP - 07/09/2012 1620 EDT Images from the original note were not included. DOS: 07/09/2012 Chief Complaint Patient presents with ??? Rectal Bleeding decreased appetite x 2 weeks.1st episode of bleeding 2 weeks ago with constipation and reoccured 2 days ago. pt has been clots. bloating and tenderness.c/o sweats. nausea. fatigue. pt has lightheadedness after straining. The patient is a 52 y.o. female who presents today with Rectal Bleeding HPI Comments: 52-year-old female with constipated stool and episodic blood in stool that occurred 2weeks ago, 2 days ago, and last night. Her stools have been hard balls and painful to defecate. Shehas bloating in her upper abdomen and she states that she has a taste of stool sometimes in her mouth. She has felt nauseated but not now. She has had no vomiting. She has had increased fatigue sinceshe has been feeling constipated. Her stools are sometimes brown and sometimes very dark and she has had red blood on her stool. She has been eating but she has decreased appetite. Review of systems: Postmenopausal, tubal ligation, no vaginal discharge. She is in the process of aGYN workup for uterine cancer. Past medical history of significance: Irritable bowel syndrome, appendectomy, hiatal hernia, hemorrhoid. Rectal Bleeding Associated symptoms include hematochezia, nausea, constipation, dysuria (occasional intermittent burning with urination), rectal pain (pain due to hard stool) and abdominal pain. Pertinent negatives include no fever, no vomiting and no headaches. The history is provided by the patient. Review of Systems Constitutional: Positive for diaphoresis. Negative for fever. Respiratory: Negative for shortness of breath. History of asthma Gastrointestinal: Positive for nausea, abdominal pain, constipation, blood in stool, hematochezia and rectal pain (pain due to hard stool). Negative for vomiting. Genitourinary: Positive for dysuria (occasional intermittent burning with urination) and urgency (stress incontinence with coughing). Negative for vaginal discharge. Neurological: Negative for headaches. Current Facility-Administered Medications Medication Dose Route Frequency Provider Last Rate Last Dose ??? disimpaction enema 1 Bottle 1 Bottle Rectal Now Dayna Patterson NP 1 Bottle at 07/09/12 1756 ??? acetaminophen (TYLENOL) tablet 325 mg 325 mg Oral Now Dayna Patterson NP 325 mg at 07/09/12 1901 ??? DISCONTD: acetaminophen (TYLENOL) tablet 500 mg 500 mg Oral Now Dayna Sanchez NP Current Outpatient Prescriptions Medication Sig Dispense Refill ??? loratadine (CLARITIN) 10 mg tablet Take [...] area(s) as directed. 60 g 3 ??? zafirlukast (ACCOLATE) 20 mg tablet Take 1 Tab by mouth 2 times daily. 60 Tab 5 ??? lovastatin (MEVACOR) 10 mg tablet Take 1 Tab by mouth daily. 90 Tab 4 ??? fluticasone (FLONASE) 50 mcg/Actuation nasal spray 1 [place] by Nasal route daily. 1 Bottle 5 [...] Soy Constipation ??? Wheat Containing Prod Constipation Past Medical History Diagnosis Date ??? Fibromyalgia ??? Obesity ??? Asthma ??? Depression ??? Anxiety ??? GERD (gastroesophageal reflux disease) ??? Fibromyalgia ??? confirmed 1979,1982 2 vaginal deliveries ??? Lung disease ??? Complication of anesthesia respiratory ??? IBS (irritable bowel syndrome) ??? Hypertension ??? Lung disease ??? IBS (irritable bowel syndrome) ??? Factor PI ??? Arthritis osteoarthritis, psoriatic arthritis ??? Hyperlipidemia ??? Constipation History Substance Use Topics ??? Smoking status: Former Smoker -- 1.0 packs/day for 20 years Types: Cigarettes Quit date: 04/23/1996 ??? Smokeless tobacco: Never Used Comment: quit 20+ yr ago ??? Alcohol Use: Yes very occasional Family History Problem Relation Age of Onset ??? Diabetes Mother ??? High Blood Pressure Father ??? High Cholesterol Father BP 134/63 Pulse 62 Temp 97.3 ??F (36.3 ??C) Resp 14 LMP 03/09/2010 Physical Exam Constitutional: She appears well-nourished. She appears distressed. Cardiovascular: Normal rate, regular rhythm and normal heart sounds. Pulmonary/Chest: Effort normal and breath sounds normal. Abdominal: Soft. Bowel sounds are normal. She exhibits distension. There is tenderness. There is norebound. Genitourinary: Rectum normal. Rectal exam shows no external hemorrhoid, no fissure and anal tone normal. Nuisance Animal Damage Control Agent during rectal exam given by TINA Brower. No hard stool in rectum. Obtained scant stool on glove with speck of blood. Anoscope not available in clinic for further internal exam. Consult orders: None PCP: Remedios Strong MD Results for orders placed during the hospital encounter of 07/09/12 POCT URINE DIPSTICK Component Value Range Color YELLOW Clarity, UA CLOUDY Glucose Neg Neg Bilirubin Neg Neg Ketones Trace (*) Neg Specific Belen >=1.030 1.001 - 1.035 Blood Neg Neg pH 5.5 4.6 - 8.0 Protein Trace (*) Neg Urobilinogen 0.2 0.2 - 1.0 (E.U./dl) Nitrite Neg Neg Leuk Esterase Neg Neg Tech ID [id number] URINE MICROSCOPIC ONLY Component Value Range WBC, UA None seen 0 - 5 (/HPF) RBC, UA 1 to 5 0 - 5 (/HPF) Squam Epithel, UA Few (*) None seen (/HPF) Renal Epithel, UA None seen None seen (/HPF) Bacteria, UA Rare (*) None seen (/HPF) Crystals, UA None seen Casts, UA None seen UA Comment Microscopic results Mucus, UA Present Radiology orders: ACUTE ABDOMEN SERIES ACUTE ABDOMEN SERIES Final result not shown here.: Procedures Course: A medical screening exam was performed. Afebrile and vital signs stable. Differentials considered but not limited to: Constipation, GI obstruction, cancer, UTI Plan: Acute abdominal series to rule out obstruction. No obstruction will give disimpaction enema. Evaluation: Patient feels much better after the disimpaction enema. She no longer has bloating or abdominal discomfort. She states she has red specks of blood in her toilet bowl and she is concerned about this. After having the enema, she did report having a headache due to the stress, and she agreed to having the Tylenol for this. She has Vicodin at home and did not want to have a medication that she could not take with her Vicodin. Therefore a low dose of acetaminophen, 325 mg was given. Discussion: Constipation was clearly the presenting problem for this visit, but due to specks of blood in toilet, there is either irritation of the bowel due to constipation or IBS or a more serious problem related to her CYBER LEGAL ADVISOR issue. I have discussed all of this with the patient, and due to resolution of her constipation and feeling better today, she agrees to call her primary doctor and discuss further workup of blood in stool.It is noted that she has procrastinated in obtaining a CYBER LEGAL ADVISOR appointment for diagnostic workup of a thickened uterine wall due to fear. She was tearful when discussing this and a supportive and compassionate response provided. She understands that a colonoscopy is most likely a next diagnostic for this problem. She will talkto her primary doctor and about getting a colonoscopy. Patient also takes Vicodin and I discussed with her that this could be causing her constipation, and she will discuss this with her primary doctor as well. She is advised to start a clear liquid diet and bowel rest, and then proceed to a bland diet in the next few days. Plan:Patient will call her primary doctor for followup to discuss pain management, and colonoscopy.It is also noted that chest X'ray as part of acute abdominal series was abnormal (calcifications) and I discussed this with patient. She has history of severe asthma but no other lung pathology noted. She will follow-up regarding this problem With her primary doctor, and I discussed that she may be advised to have a skin test for tuberculosis as routine test. Disposition: Discharged The patient's pain was managed to an adequate level weighing risk vs. benefit of further medications. Upon departure from the [facility], the patient's pain was 0 on a zero to ten scale. Condition at departure from the [facility]: Improved 1. Urgency of urination POCT URINE DIPSTICK, POCT URINE DIPSTICK, URINE MICROSCOPIC ONLY, URINE MICROSCOPIC ONLY 2. Stress incontinence, female POCT URINE DIPSTICK, POCT URINE DIPSTICK 3. Constipation POCT URINE DIPSTICK, POCT URINE DIPSTICK Dr. Wilfred Omalley was available for consultation during my care of this patient. MDM Number of Diagnoses or Management Options Constipation: Stress incontinence, female: Urgency of urination: Amount and/or Complexity of Data Reviewed Clinical lab tests: ordered and reviewed (Urine dipstick has trace ketones and trace protein with aspecific gravity of 1.030. Urine micro-: Rare bacteria, few squamous and no white blood cells.) Tests in the radiology section of CPT??: ordered and reviewed (Clinical history/Comments: Bloating and upper abdominal pain and supra-pubic pain, worse with stooling. Taste of stool. Episodic rectal bleeding with constipated stools (2 weeks ago, 2 days ago, yesterday). PMH: IBS, hernia, appy, work-up for uterine cancer by CYBER LEGAL ADVISOR ongoing Comparison: None Findings: A PA view of the chest and 3 views of the abdomen are received for interpretation. The cardiomediastinal silhouette is within normal limits. The demonstrate multiple tiny nodules, more on the right, that appear calcified, possibly granulomatous disease. I do not have comparison studies and therefore other etiologies including metastatic disease are not definitely excluded. There is no free intraperitoneal air. The bowel gas pattern is not obstructed. Stool is seen throughout the colon. There are no pathologic calcifications. The visualized bones are unremarkable for age.. Impression: No obstruction or perforation. Multiple probably calcified nodules in the lungs as described above. Recommend correlation with clinical history. ) Review and summarize past medical records: yes (9/12/12- Office nurse note excerpt: Hasn't had a bowel today so she hasn't had any rectal bleeding. She is c/o abd pain especially when she is having abowel movement. She states that she is having abdominal bloating, having some nausea, diaphoresis especially when strains to go to the bathroom , She is very constipated decrease appetite. ) 07/10/2012 8:22 * Leida Felipe RN - 07/09/2012 1602 EDT Pt states that clots were on bm and states that her dad can not eat seeds. * Leida Felipe RN - 07/09/2012 1549 EDT S/p steroid injection to neck. * Bowen Johnston RN - 07/09/2012 1343 EDT Pt sent here by [facility] for 3 days of rectal bleeding, not profuse. Vital signs are stable. documented in this encounter Miscellaneous Notes * Scanned Note-Null - EMPLOYEE RELATIONS SPECIALIST, SCAN 2 - 07/13/2012 0507 EDT documented in this encounter Plan of Treatment Not on file documented as of this encounter Procedures Procedure Name Priority Date/Time Associated Diagnosis Comments URINE SEDIMENT (MICRO) WITHOUT REFLEX TO CULTURE STAT 07/09/2012 17:20 EDT Urgency of urination POCT URINE DIPSTICK, CLINITEK STAT 07/09/2012 17:20 EDT Urgency of urination Stress incontinence, female Constipation ACUTE ABDOMEN SERIES Routine 07/09/2012 17:04 EDT documented in this encounter Results * (ABNORMAL) URINE MICROSCOPIC ONLY (07/09/2012 17:20 EDT) WBC, UA None seen 0 - 5 /HPF [facility] RBC, UA 1 to 5 0 - 5 /HPF [facility] Squam Epithel, UA Few(A) None seen /HPF [facility] Renal Epithel, UA None seen None seen /HPF [facility] Bacteria, UA Rare(A) None seen /HPF [facility] Crystals, UA None seen /HPF [facility] Hyaline Casts, UA None seen /LPF [facility] UA Comment Microscopic results [facility] Comment: are unreliable on urines unrefrig >2hrs or refrig >8hrs. Mucus, UA Present [facility] Comment:Performed at [facility], [place], [place] Urine specimen (specimen) URINE / Unknown 07/09/2012 17:20 EDT 07/09/2012 17:33 EDT Dayna Patterson NP URINALYSIS ORDERABLES [facility] [address] [place] [address] * (ABNORMAL) POCT URINE DIPSTICK (07/09/2012 17:20 EDT) Color YELLOW [facility] Clarity, UA CLOUDY [facility] Glucose Neg Neg [facility] Bilirubin Neg Neg [facility] Ketones Trace(A) Neg [facility] Specific Belen >=1.030 1.001 - 1.035 [facility] Blood Neg Neg [facility] pH 5.5 4.6 - 8.0 [facility] Protein Trace(A) Neg [facility] Urobilinogen 0.2 0.2 - 1.0 E.U./dl [facility] Nitrite Neg Neg [facility] Leuk Esterase Neg Neg [facility] drop pit worker ID [id number] [facility] Comment[facility] Urine specimen (specimen) 07/09/2012 17:20 EDT 07/09/2012 17:27 EDT Dayna Patterson NP POINT OF CA RE TEST ORDERABLES [facility] [address] [place] [address] * ACUTE ABDOMEN SERIES (07/09/2012 17:04 EDT) Anatomical Region Laterality Modality Other 07/09/2012 17:0 4 EDT 07/09/2012 19:19 EDT Narrative 07/09/2012 19:19 EDT ACUTE ABDOMEN SERIES ??Jul 09, 2012 05:04:00 PM Clinical history/Comments: Bloating and upper abdominal pain and supra-pubic pain, worse with stooling. Taste of stool. Episodic rectal bleeding with constipated stools (2 weeks ago, 2 days ago, yesterday). PMH: IBS, hernia, appy, work-up for uterine cancer by CYBER LEGAL ADVISOR ongoing Comparison: None Findings: A PA view of the chest and 3 views of the abdomen are received for interpretation. The cardiomediastinal silhouette is within normal limits. The demonstrate multiple tiny nodules, more on the right, that appear calcified, possibly granulomatous disease. I do not have comparison studies and therefore other etiologies including metastatic disease are not definitely excluded. There is no free intraperitoneal air. The bowel gas pattern is not obstructed. Stool is seen throughout the colon. There are no pathologic calcifications. The visualized bones are unremarkable for age.. Impression: No obstruction or perforation. Multiple probably calcified nodules in the lungs as described above. Recommend correlation with clinical history. Findings were discussed with Ana Laura at the time of interpretation. Procedure Note 07/09/2012 ACUTE ABDOMEN SERIES Jul 09, 2012 05:04:00 PM Clinical history/Comments: Bloating and upper abdominal pain and supra-pubic pain, worse with stooling. Taste of stool. Episodic rectal bleeding with constipated stools (2 weeks ago, 2 days ago, yesterday). PMH: IBS, hernia, appy, work-up for uterine cancer by CYBER LEGAL ADVISOR ongoing Comparison: None Findings: A PA view of the chest and 3 views of the abdomen are received for interpretation. The cardiomediastinal silhouette is within normal limits. The demonstrate multiple tiny nodules, more on the right, that appear calcified, possibly granulomatous disease. I do not have comparison studies and therefore other etiologies including metastatic disease are not definitely excluded. There is no free intraperitoneal air. The bowel gas pattern is not obstructed. Stool is seen throughout the colon. There are no pathologic calcifications. The visualized bones are unremarkable for age.. Impression: No obstruction or perforation. Multiple probably calcified nodules in the lungs as described above. Recommend correlation with clinical history. Findings were discussed with Ana Laura at the time of interpretation. Dayna Patterson NP IMG DIAGNOS TIC IMAGING ORDERABLES documented in this encounter Visit Diagnoses Diagnosis Urgency of urination Stress incontinence, female Female stress incontinence Constipation Unspecified constipation documented in this encounter Administered Medications Inactive Administered Medications - up to 3 most recent administrations Medication Order MAR Action Action Date Dose Rate Site acetaminophen (TYLENOL) tablet 325 mg 325 mg, oral, NOW X1, 1 dose, On Mon07/09/12 at 1915, Routine Given 07/09/2012 19:01 EDT 325 mg disimpaction enema 1 Bottle 1 Bottle, rectal, NOW X1, 1 dose, On Mon07/09/12 at 1800, Routine Given 07/09/2012 17:56 EDT 1 Bottle documented in this encounter Active and Recently Administered Medications Times are shown in EDT. Scheduled Medication Order 07/07/2012 07/08/2012 07/09/2012 acetaminophen (TYLENOL) tablet 325 mg (COMPLETED) 325 mg, oral, NOW X1, 1 dose, On Mon07/09/12 at 1915, Routine 1901 (Given - Provid er: Leida Felipe RN) disimpaction enema 1 Bottle (COMPLETED) 1 Bottle, rectal, NOW X1, 1 dose, On Mon07/09/12 at 1800, Routine 1756 (Given - Provid er: Leida Felipe RN) documented in this encounter Orders Medications Ordered That Max ht Not Have Been Administered Count Last Ordered Date First Ordered Date acetaminophen (TYLENOL) tablet 500 mg 1 07/2012 documented in this encounter Care Teams Boring Machine Operator Helper Relationship Specialty Start Date End Date Remedios Mehta MD [address] [place] [phone] PCP - General 02/19/09 01/04/15 documented as of this encounter
--- OUTSIDE RECORDS SUMMARY | 2024-06-24 02:21 | XMS_ITS | Encounter Summary ---
Author Organization [facility] Address [address] [place] [address] Care Team Providers Care Shift Stacker Name Role Phone Remedios Mehta MD Primary Care Provider [phone] Reason for Visit * Reason Onset Date Comments Results 05/28/2012 Encounter Details Date Type Department Care Team (Late st Contact Info) Description 05/28/[address] [address] Remedios Mehta MD [address] [place] [phone] Results Social History Tobacco Use Types [...] Telephone Encounter - Emily Gibson LPN - 05/28/2012 1616 EDT Called patient with results per letter. * Telephone Encounter - Brook Weathers - 05/28/2012 0944 EDT Caller: Cherelle Test Results Requested: Left knee x-ray Date of Test: 05/24/12 Where was test performed: [facility] Patient informed that test results may take up to two weeks per office protocol. documented in this encounter Plan of Treatment Not on file documented as of this encounter Visit Diagnoses Not on filedocumented in this encounter Care Teams Shift Stacker Relationship Specialty Start Date End Date Remedios Mehta MD [address] [place] [phone] PCP - General 02/19/09 01/04/15 documented as of this encounter
--- OUTSIDE RECORDS SUMMARY | 2024-06-24 02:21 | XMS_ITS | Encounter Summary ---
Author Organization [facility] Address [address] [place] [address] Care Team Providers Care Fish And Wildlife Warden Name Role Phone Remedios Mehta MD Primary Care Provider + [phone] Reason for Visit * Reason Onset Date Comments Breathing Problem 08/24/2012 flu Encounter Details Date Type Department Care Team (Late st Contact Info) Description 08/24/2012 Telephone [facility] Pulmonology & Critical Care - [facility] [address], [place] [id number] Roberto Hodges MD [address] [place], [place] [address] Breathing Problem (flu) Social History Tobacco Use Types Packs/Day Years [...] Start Date End Da te predniSONE (DELTASONE) 10 mg tablet Take 40mg x 3 days, 20mg x 3 days, 10mg x 3 days then stop. 21 Tab 0 08/26/2012 08/29/2012 azithromycin (ZITHROMAX) 250 mg tablet Take 2 tablets (500mg) by mouth on day 1, followed by 1 tablet (250mg) by mouth once daily on days 2 through 5. 6 Tab 0 08/26/2012 08/29/2012 documented in this encounter Miscellaneous Notes * Telephone Encounter - Elda Yip, - 08/27/2012 0938 EDT [place] back from pharmacist at [facility]. Duo nebs and albuterol nebs are both approved and pt can medicinal plant picker any time. Called pt back to report. She will have someone get them eralene. ONEL Apple. * Telephone Encounter - Elda Yip, - 08/27/2012 0925 EDT Called pt who reports she went to walk in care on Sat. and Dr lagos ordered Zpak, prednisone taper , duo nebs and albuterol neb. Pt reports pharmacy told her friend who picked up meds that the nebs needed prior auth and only gave pt a ventolin HFA. Pt stated this is NOT helping - I called Pharmacist, Sushila, who is checking on the nebs and will call me back .Elda Yip RRT * Telephone Encounter - Roberto Hodges MD - 08/26/2012 1444 EDT Sounds reasonable to treat. Z alfred and prednisone taper e scribed. Please let her know. Thanks. * Telephone Encounter - Elda Yip RT - 08/24/2012 1549 EDT Called pt who reports she's been sick all week w/ fevers (101.4 yesterday), prod cough w/ yellow-green sputum, + sweats and chills at night and increased SOB. Only taking duo nebs once daily and ?s how often can she take these. She only has one tx left and needs a refill. Usually Dr will order Z Alfred and prednisone taper - last had this about a year ago. Uses [facility] in [place]. Will relay to Dr Hodges for advice. ELDA YIP, RT * Telephone Encounter - Rosalva Mukherjee - 08/24/2012 1039 EDT Pt has the flu and flow meter is below the red zone. Pt is light headed and coughing. Please call earlene documented in this encounter Plan of Treatment Not on file documented as of this encounter Visit Diagnoses Not on filedocumented in this encounter Care Teams Fish And Wildlife Warden Relationship Specialty Start Date End Date Remedios Mehta MD [address] [place] [id number] PCP - General 02/19/09 01/04/15 documented as of this encounter
--- OUTSIDE RECORDS SUMMARY | 2024-06-24 02:21 | XMS_ITS | Encounter Summary ---
Author Organization [facility] Address [address] [place] [address] Care Team Providers Care Cashiers Bussers Food Runners Name Role Phone Remedios Mehta MD Primary Care Provider [phone] Reason for Visit * Reason Onset Date Comments Medications Refill 08/15/2012 Encounter Details Date Type Department Care Team (Late st Contact Info) Description 08/15/[address] [address] Remedios Mehta MD [address] [place] [id number] Medications Refill Social History Tobacco Use [...] as needed 56 Tab 1 08/15/2012 12/19/2012 documented in this encounter Miscellaneous Notes * Telephone Encounter - Nayeli Swift LPN - 08/15/2012 1213 EDT Trazodone was last prescribed in March # 56 with 1 refill Using 1-2 tabs at bedtime. * Telephone Encounter - Deanna Choi - 08/15/2012 1105 EDT Name of Medication -trazodon Last Refill Date - not in med list Last Visit Date -07.16.12 Next Visit Date -none scheduled Is patient out of medication? -unknown documented in this encounter Plan of Treatment Not on file documented as of this encounter Visit Diagnoses Diagnosis Myalgia and myositis Mylagia and myositis, unspecified Arthropathy Arthropathy, unspecified, site unspecified documented in this encounter Discontinued Medications Medication Sig Discontinue Reason Start Date End Da te trazodone (DESYREL) 100 mg tabletIndications:Myalgi a and myositis,Arthropathy Take 2 Tabs by mouth. Take 1-2 tabs at bedtime for sleep as needed Reorder 04/04/2012 08/15/2012 documented as of this encounter Care Teams Cashiers Bussers Food Runners Relationship Specialty Start Date End Date Remedios Mehta MD [address] [place] [id number] PCP - General 02/19/09 01/04/15 documented as of this encounter
--- OUTSIDE RECORDS SUMMARY | 2024-06-24 02:21 | XMS_ITS | Encounter Summary ---
Author Organization [facility] Address [address] [place] [address] Care Team Providers Care Seafood Process Worker Name Role Phone Remedios Mehta MD Primary Care Provider [phone] Encounter Details Date Type Department Care Team (Latest Contact Info) Description 07/18/2012 13:31 EDT - 07/18/2012 23:59 EDT Hospital Encounter [address] [place] [address] Remedios Mehta MD [address] [place] [phone] Discharge Disposition: Auto Discharge Social History [...] bowel syndrome),GERD (gastroesophageal reflux disease) Instill 1 Bowlegs into both nostrils daily. 1 Bottle 5 [...] on filedocumented in this encounter Care Teams Seafood Process Worker Relationship Specialty Start Date End Date Remedios Mehta MD [address] [place] [phone] PCP - General 02/19/09 01/04/15 documented as of this encounter
--- OUTSIDE RECORDS SUMMARY | 2024-06-24 02:21 | XMS_ITS | Encounter Summary ---
Author Organization [facility] Address [address] [place] [address] Care Team Providers Care Humanities Professor Name Role Phone Remedios Mehta MD Primary Care Provider [phone] Reason for Visit * Reason Comments Knee Pain bilateral Leg Pain bilateral Back Pain lower and uppper Neck Pain Shoulder Pain bilateral Encounter Details Date Type Department Care Team (Latest Contact Info) Description 05/22/2012 13:45 EDT Office Visit [facility] Interventional Pain [address] [place], [place] [id number] Abundio Tubbs, DO [address] [place] [address] [address] [place], [place] [id number] Cervical spondylosis (Primary Dx); Chronic low back pain; Chronic neck pain; Lumbosacral spondylosis without myelopathy Social History [...] Sign Reading Time Taken Comments Blood Pressure 100/66 05/22/2012 1312 EDT Pulse 63 05/22/2012 1312 EDT Temperature 36.2 ??C (97.1 ??F) 05/22/2012 1312 EDT Respiratory Rate 12 05/22/2012 1312 EDT Oxygen Saturation - - Inhaled Oxygen Concentration - - Weight 97.1 kg (214 lb) 05/22/2012 1312 EDT Height 152.4 cm (5') 05/22/2012 1312 EDT Body Mass Index 41.79 05/22/2012 1312 EDT documented in this encounter Functional Status Cognitive Status Response Date of Assessm ent Because of a physical, menta l, or emotional condition, do you have serious difficulty concentrating, remembering, or making decisions? (5 years old or older) Yes 04/15/2010 documented as of this encounter Progress Notes * Edmund Yo MD - 05/22/2012 1436 EDT [facility] OP PAIN CONSULT Patient Name: Cherelle Husain : 1960 Date of Service: 05/22/2012 Chief Complaint: Chief Complaint Patient presents with ??? Knee Pain bilateral ??? Leg Pain bilateral ??? Back Pain lower and uppper ??? Neck Pain ??? Shoulder Pain bilateral Physician Requesting Consultation:Delia Perez History of Present Illness: Ms. Husain presents at the request of Delia Perez for evaluation and treatment of her chronic neck and low back pain. This patient has a very complicated history including fibromyalgia (over 15 years), psoriatic arthritis, migraine headaches, neck pain, and back pain. She describes her pain as constant, frequent with numbness and tingling. She complains of pain and tenderness throughout her body. She also recently fell on her left knee resulting in left knee pain. However, her two chief complaints are her neck pain and low back pain. She describes her neck pain as mainly in the lower cervical region in the midline with radiation to her shoulders bilaterally. Her back pain starts in the midline and radiates to the side and down her lower extremities bilaterally to the knees. Her average pain score is 6/10 which goes up to 10/10, sometimes more, with activity. This pain has been present for years. Nothing much helps alleviate the pain. She has gone to a chiropractor and to physical therapy whichdid not help. She has also had some kind of biofeedback program, but states she could not pay for it. She has participated in water/pool therapy which she finds beneficial. She currently takes 2 hydro codone/acetaminophen tablets a day. Diagnostic workup includes: 1. Lumbar spine 2 views. Findings: Two-view lumbar spine. Vertebral body height and intervertebral the spaces are maintained at all levels. No fracture or dislocation. 2. Cervical spine 2-3 views. Small endplate osteophytes at C4, C5, C6, and C7. C6-C7 disc space narrowing, slightly progressed in severity since 2007. No prevertebral soft tissue swelling. Conclusion: Increased degenerative disc space narrowing at C6-C7. 3. MR of cervical spine without contrast (2007). Impression Cervical Spine MR: 1. Degenerative discdisease with small right paracentral-foraminal disc herniation at C6-C7 level with mild right foraminal narrowing in which there is prominent uncovertebral spurring at this level contributing to the degree of right foraminal stenosis and minor disc-osteophyte complex at C5-C6 level. 2. Mild degenerative changes in the cervical spine. 3. Kyphosis maximum at C6 level. Allergies: Allergies Allergen Reactions ??? Latex, Natural Rubber Hives ??? Aspirin Shortness Of Breath ??? Chocolate Flavor Hives Anything with chocolate gives rash ??? Codeine Shortness Of Breath ??? Egg/Poultry Hives ??? Penicillins Shortness Of Breath ??? Sulfa(Sulfonamide Antibiotics) Hives ??? Soy Constipation ??? Wheat Containing Prod Constipation Current Medications: Current Outpatient Prescriptions Medication Sig Dispense [...] fluticasone (FLONASE) 50 mcg/Actuation nasal spray 1 [place] by Nasal route daily. 1 Bottle 5 [...] every 4 hours as needed for Wheezing. Past Medical HX: Past Medical History Diagnosis Date ??? Fibromyalgia ??? Obesity ??? Asthma ??? Depression ??? Anxiety ??? GERD (gastroesophageal reflux disease) ??? Fibromyalgia ??? confirmed 1979,1982 2 vaginal deliveries ??? Lung disease ??? Complication of anesthesia respiratory ??? IBS (irritable bowel syndrome) ??? Hypertension ??? Lung disease ??? IBS (irritable bowel syndrome) ??? Factor PI Past Surgical HX: Past Surgical History Procedure Date ??? Appendectomy ??? Hernia repair ??? Carpal tunnel release 22 years ago right endoscopic by dr. Hamilton ??? Joint replacement 04/15/2010 Right TKR ([facility]) ??? Knee surgery right Past Social HX: History Social History ??? Marital Status: Single [...] Has a daughter, , who lives in [place] with one son, Rickey, now 4 weeks old. Family HX: Family History Problem Relation Age of Onset ??? Diabetes Mother ??? High Blood Pressure Father ??? High Cholesterol Father Review of Systems: System Negative Positive Comments Constitutional x fatigue Eyes x ENT x Cardiovascular x Pulmonary x asthma Gastrointestinal x Genitourinary x Muscoloskeletal x As above Skin x Psoriasis with arthritis Neurological x Psychiatric x Depression and anxiety Endocrine x Hematologic/Lymph x Allergic/Immunologic x Physical Exam: Vitals: BP 100/66 Pulse 63 Temp(Src) 36.2 ??C (97.1 ??F) (Tympanic) Resp 12 Ht 152.4 cm (60) Wt 97.07 kg (214 lb) BMI 41.79 kg/m2 LMP 03/09/2010 General:awake, alert, cooperative, no apparent distress Neuro: Cranial nerves II-XII grossly intact and symmetric HEAD: normocephalic EYES: PERRLA, EOMI, Anicteric and vision intact ENT: hearing intact Neck: tenderness over cervical spine and shoulders. ROM somewhat limited due to pain. Heart: regular rate and rhythm and no murmer, gallop, or rubs Lungs: clear to auscultation b/l Abdomen: soft ,non-distended, nontender Skin: clear, warm, dry and intact and no rashes, bruises or petechiae noted Musculoskeletal: Gait: Markedly antalgic, Tenderness throughout exam on palpation. Cervical Spine: Positive for paraspinal tenderness Thoracic Spine: paraspinal tenderness Lumbar Spine: paraspinal tenderness Upper extremities: No clubbing, cyanosis, or edema Lower extremities: No cyanosis, or edema Deep Tendon Reflexes: 3+ bilateral patellar, 2+ bilateral achilles, 2+ biceps and forearm Assessment: This is a 52 yo female with history of psoriatic arthritis, fibromyalgia, migraine headaches who presents with long standing neck pain with radiation to shoulders and low back pain which radiates to upper leg bilaterally. 1. Cervical spondylosis 2. Chronic low back pain 3. Chronic neck pain 4. Lumbosacral spondylosis without myelopathy Plan: We had a lengthy discussion regarding options. From an interventional approach to pain, I would suggest a cervical facet joint injection. We discussed the risks and benefits of such a procedure. Froma medication perspective, I would recommend a trial of Medrol dose pack which may help decrease inflammation. The patient asked appropriate questions and all questions were answered. The patient will be scheduled for a follow up with a cervical facet joint injection. Attending attestation: I saw and examined the patient with the resident/fellow. I agree with the findings and plan of care documented in the resident's/fellow's note. Abundio Tubbs MD 05/22/2012 documented in this encounter Miscellaneous Notes * Scanned Note-Null - PAVER LAYER, SCAN 2 - 05/24/2012 0909 EDT documented in this encounter Plan of Treatment Not on file documented as of this encounter Visit Diagnoses Diagnosis Cervical spondylosis- Primary Cervical spondylosis without myelopathy Chronic low back pain Lumbago Chronic neck pain Cervicalgia Lumbosacral spondylosis without myelopathy documented in this encounter Care Teams Humanities Professor Relationship Specialty Start Date End Date Remedios Mehta MD [address] [place] [phone] PCP - General 02/19/09 01/04/15 documented as of this encounter
--- OUTSIDE RECORDS SUMMARY | 2024-06-24 02:21 | XMS_ITS | Encounter Summary ---
Author Organization [facility] Address [address] [place] [address] Care Team Providers Care Oracle Hyperion Consultant Name Role Phone Remedios Mehta MD Primary Care Provider [phone] Reason for Referral * Consult (Routine/Next Available) - Closed Specialty Diagnoses / Procedures Referred By Joao proctor Referred To Contact Plastic Surgery Diagnoses Breast lobule hyperplasia Obesity, Class III, BMI 40-49.9 (morbid obesity) ([facility]) Asthma with exacerbation Back pain Remedios Mehta MD [address] [place] [address] Referral ID Status Reason Start Date Expiration Date V isits Requested Visits Authorized [id number] Closed Specialty Services Required 08/29/2012 1 1 Question Answer Reason for Request: chronic back pain and SOB with asthma exacerbations partially exacerbated by bilateral large breasts - wants bilateral breast reduction Comments Dr. Fonseca or other female surgeon only (h/o trauma) * Consult (Routine/Next Available) - Closed Specialty Diagnoses / Procedures Referred By Joao proctor Referred To Contact Nutrition Diagnoses Obesity, Class III, BMI 40-49.9 (morbid obesity) ([facility]) Remedios Mehta MD [address] [place] [phone] Irina Ang, RD [address] [address] Referral ID Status Reason Start Date Expiration Date V isits Requested Visits Authorized [id number] Closed Specialty Services Required 08/29/2012 1 1 Question Answer Reason for Request: obesity, GERD, asthma Reason for Visit * Reason Comments Pneumonia wheezy, sob, Vaginal Bleeding Breast Reduction Obesity Encounter Details Date Type Department Care Team (Late st Contact Info) Description 08/29/2012 13:45 EDT Office Visit [address] [address] Remedios Mehta MD [address] [place] [address] Asthma with exacerbation (Primary Dx); Obesity, Class III, BMI 40-49.9 (morbid obesity) (CMS-HCC) ([facility]); Breast lobule hyperplasia; Back pain; Thrush Social History Tobacco Use Types Packs/Day Years [...] Sign Reading Time Taken Comments Blood Pressure 106/64 08/29/2012 1350 EDT Pulse 68 08/29/2012 1350 EDT Temperature 36.3 ??C (97.4 ??F) 08/29/2012 1350 EDT Respiratory Rate 16 08/29/2012 1350 EDT Oxygen Saturation - - Inhaled Oxygen Concentration - - Weight 96.2 kg (212 lb) 08/29/2012 1350 EDT Height 152.4 cm (5') 08/29/2012 1350 EDT Body Mass Index 41.4 08/29/2012 1350 EDT documented in this encounter Functional Status Cognitive Status Response Date of Assessm ent Because of a physical, menta l, or emotional condition, do you have serious difficulty concentrating, remembering, or making decisions? (5 years old or older) Yes 04/15/2010 documented as of this encounter Patient Instructions * Patient Instructions* Remedios Strong MD - 08/29/2012 14:11 EDT Images from the original note were not included. [facility] Patient Instructions Asthma Attacks: After Your Visit Your Care Instructions During an asthma attack, the airways swell and narrow. This makes it hard to breathe. Severe asthmaattacks can be life-threatening, but you can help prevent them by keeping your asthma under controland treating symptoms before they get bad. This can also help you avoid future trips to the emergency room. Follow-up care is a gomez part of your treatment and safety. Be sure to make and go to all appointments, and call your doctor if you are having problems. It???s also a good idea to know your test results and keep a list of the medicines you take. How can you care for yourself at home? ?? Follow your asthma action plan to prevent and treat attacks. If you don't have an asthma action plan, work with your doctor to create one. ?? Take your asthma medicines exactly as prescribed. Talk to your doctor right away if you have anyquestions about how to take them. ?? Use your quick-relief medicine when you have symptoms of an attack. Quick- relief medicine is usually an albuterol inhaler. Some people need to use quick- relief medicine before they exercise. ?? Take your controller medicine every day, not just when you have symptoms. Controller medicine isusually an inhaled corticosteroid. The goal is to prevent problems before they occur. Don't use your controller medicine to treat an attack that has already started. It doesn't work fast enough to help. ?? Keep your quick-relief medicine with you at all times. ?? Talk to your doctor before using other medicines. Some medicines, such as aspirin, can cause asthma attacks in some people. ?? Learn how to use a peak flow meter to check how well you are breathing. This can help you predict when an asthma attack is going to occur. Then you can take medicine to prevent the asthma attack or make it less severe. ?? Do not smoke or allow others to smoke around you. Avoid smoky places. Smoking makes asthma worse. If you need help quitting, talk to your doctor about stop- smoking programs and medicines. These can increase your chances of quitting for good. ?? Learn what triggers an asthma attack for you, and avoid the triggers when you can. Common triggers include colds, smoke, air pollution, dust, pollen, mold, pets, cockroaches, stress, and cold air. ?? Avoid colds and the flu. Get a pneumococcal vaccine shot. If you have had one before, ask your doctor if you need a second dose. Get a flu vaccine every fall. If you must be around people with colds or the flu, wash your hands often. When should you call for help? Call 911 anytime you think you may need emergency care. For example, call if: ?? You have severe trouble breathing. Call your doctor now or seek immediate medical care if: ?? Your symptoms do not get better after you have followed your asthma action plan. ?? You have new or worse trouble breathing. ?? Your coughing and wheezing get worse. ?? You cough up dark brown or bloody mucus (sputum). ?? You have a new or higher fever. Watch closely for changes in your health, and be sure to contact your doctor if: ?? You need to use quick-relief medicine on more than 2 days a week (unless it is just for exercise). ?? You cough more deeply or more often, especially if you notice more mucus or a change in the color of your mucus. ?? You are not getting better as expected. Where can you learn more? Go to www.[employer].net/fahc Enter F084 in the search box to learn more about Asthma Attacks: After Your Visit. ?? [phone] [employer]. Care instructions adapted under license by [facility], [facility]. This care instruction is for use with your licensed healthcare professional. If you have questions about a medical condition or this instruction, always ask your healthcare professional. [employer] disclaims any warranty or liability for your use of this information. Content Version: 9.2.243939; Last Revised: January 14, 2011 documented in this encounter Ordered Prescriptions Prescription Sig Dispensed Refills Start Date End Da te nystatin (MYCOSTATIN) 100,000 unit/mL suspensionIndications:Thru sh Take 5 mL by mouth 4 times daily. 240 mL 3 08/29/2012 09/12/2012 predniSONE (DELTASONE) 10 mg tabletIndications:Asthma with exacerbation Take 1 Tab by mouth daily. 30 Tab 3 08/29/2012 09/12/2012 documented in this encounter Progress Notes * Remedios Strong MD - 08/30/2012 1627 EDT Subjective: Patient ID: Cherelle Husain is an 52 y.o. female. Chief Complaint Patient presents with ??? Pneumonia wheezy, sob, ??? Vaginal Bleeding ??? Breast Reduction ??? Obesity HPI Cherelle is here for several things. Follow up of chronic issues and more importantly, f/u from ED visit last week - diagnosed with pneumonia. Took her last antibiotic today. Feels much better but currently having trouble with wheezing. Came 3 hours early for her appt and stayed because she has little money for gas so she really needs her neb. Has an appt with Dr Schilling for management of her DUB. Really hoping to be done with this. No new issues with it, though. Also, now that she has insurance, would like referral for breast reduction - saw plastics before and was approved, but couldn't afford the surgery. Feels like her back pain, efforts at exercising, overall breathing - are much worse with her large breasts. Has been working on overall diet, and activity. PMH/PSH/Meds/All/FH/SH all reviewed and updated in prism. Mood is much better, too. Patient Active Problem List Diagnoses ??? Myalgia [...] of knee ??? Pain of right leg Past Medical History Diagnosis Date ??? Fibromyalgia [...] to Visit Medication Sig Dispense Refill ??? ipratropium-albuterol (DUONEB) 0.5 mg-3 mg(2.5 mg base)/3 mL nebulizer solution Take 3 mL by nebulization every 4 hours as needed for Wheezing. 1 Box 1 ??? albuterol (PROVENTIL) 2.5 mg /3 mL (0.083 %) nebulizer solution Take 3 mL by nebulization every4 hours as needed for Wheezing. 1 Box 1 ??? albuterol (PROVENTIL HFA, VENTOLIN HFA) 90 mcg/actuation inhaler Inhale 2 Puffs as directed every 4 hours. 1 Inhaler 1 ??? predniSONE (DELTASONE) 20 mg tablet Take 1 Tab by mouth 2 times daily. 8 Tab 0 ??? lovastatin (MEVACOR) 10 mg tablet Take 1 Tab by mouth daily. 90 Tab 4 ??? zafirlukast (ACCOLATE) 20 mg tablet Take 1 Tab by mouth 2 times daily. 60 Tab 5 ??? trazodone (DESYREL) 100 mg tablet Take 2 Tabs by mouth. Take 1-2 tabs at bedtime for sleep as needed 56 Tab 1 ??? fluticasone (FLONASE) 50 mcg/actuation nasal spray Instill 1 [place] into both nostrils daily. 1 Bottle 5 [...] 2 times daily. 60 Cap 4 ??? metoprolol (LOPRESSOR) 25 mg tablet Take [...] occasional ROS - See HPI Objective: BP 106/64 Pulse 68 Temp(Src) 36.3 ??C (97.4 ??F) (Tympanic) Resp 16 Ht 152.4 cm (60) Wt 96.163 kg (212 lb) BMI 41.40 kg/m2 LMP 03/09/2010 Physical Exam Constitutional: She is oriented to person, place, and time. She appears well- developed and well-nourished. HENT: Mouth/Throat: Oropharynx is clear and moist. Tongue with presence of thrush Eyes: Conjunctivae are normal. Neck: Normal range of motion. Neck supple. Cardiovascular: Normal rate, regular rhythm and normal heart sounds. Pulmonary/Chest: She has wheezes. Diffusely wheezy throughout - after duoneb tx pt had clearer lung sounds throughout; still end expiratory wheezes throughout Abdominal: Soft. Bowel sounds are normal. Musculoskeletal: Normal range of motion. Neurological: She is alert and oriented to person, place, and time. Skin: Skin is warm and dry. Psychiatric: She has a normal mood and affect. Assessment: Plan: Cherelle was seen today for pneumonia, vaginal bleeding, breast reduction and obesity. Diagnoses and associated orders for this visit: Asthma with exacerbation - ipratropium-albuterol (DUONEB) 0.5 mg-3 mg(2.5 mg base)/3 mL nebulizer solution 3 mL; Take 3 mL by nebulization Now. - Ambulatory Consult Plastic Surgery - predniSONE (DELTASONE) 10 mg tablet; Take 1 Tab by mouth daily. Obesity, class iii, bmi 40-49.9 (morbid obesity) - Ambulatory Consult Nutrition - continue efforts with exercise Breast lobule hyperplasia - Ambulatory Consult Plastic Surgery Back pain - Ambulatory Consult Plastic Surgery Continue with recommendations and treatments from rheumatology;continue weight loss efforts Thrush - nystatin (MYCOSTATIN) 100,000 unit/mL suspension; Take 5 mL by mouth 4 times daily. * Emily Gibson LPN - 08/29/2012 4814 EDT Small volume nebulizer treatment with duo neb given per Dr. Strong documented in this encounter Plan of Treatment Scheduled Referrals Name Type Priority Associated Diagnoses Orde r Schedule AMB CONSULT NUTRITION Outpatient Referral Routine Obesity, Class III, BMI 40-49.9 (morbid obesity) ([facility]) ([facility]) Ordered: 08/29/2012 AMB CONSULT PLASTIC SURGERY Outpatient Referral Routine Breast lobule hyperplasia Obesity, Class III, BMI 40-49.9 (morbid obesity) ([facility]) ([facility]) Asthma with exacerbation Back pain Ordered: 08/29/2012 documented as of this encounter Visit Diagnoses Diagnosis Asthma with exacerbation- Primary Unspecified asthma, with exacerbation Obesity, Class III, BMI 40-49.9 (morbid obesity) ([facility]) Morbid obesity Breast lobule hyperplasia Hypertrophy of breast Back pain Backache, unspecified Thrush Candidiasis of mouth documented in this encounter Administered Medications Inactive Administered Medications - up to 3 most recent administrations Medication Order MAR Action Action Date Dose Rate Site ipratropium-albuterol (DUONEB) 0.5 mg-3 mg(2.5 mg base)/3 mL nebulizer solution 3 mL 3 mL, nebulization, NOW X1, 1 dose, On Mon08/29/12 at 1430, Routine Given 08/29/2012 14:47 EDT 3 mL Other documented in this encounter Discontinued Medications Medication Sig Discontinue Reason Start Date End Da te albuterol (PROVENTIL, VENTOLIN) 90 mcg/Actuation inhaler Inhale 2 Puffs as directed as needed for Wheezing. Patient Stopped Taking 08/29/2012 azithromycin (ZITHROMAX) 250 mg tablet Take 1 Tab by mouth daily for 4 days. Therapy completed 08/25/2012 08/29/2012 azithromycin (ZITHROMAX) 250 mg tablet Take 2 tablets (500mg) by mouth on day 1, followed by 1 tablet (250mg) by mouth once daily on days 2 through 5. Therapy completed 08/26/2012 08/29/2012 albuterol (ACCUNEB) 0.63 mg/3 mL nebulizer solution Take 0.63 mg by nebulization every 4 hours as needed for Wheezing. Duplicate Therapy 08/29/2012 predniSONE (DELTASONE) 10 mg tablet Take 40mg x 3 days, 20mg x 3 days, 10mg x 3 days then stop. Therapy completed 08/26/2012 08/29/2012 documented as of this encounter Orders Medications Ordered That Max ht Not Have Been Administered Count Last Ordered Date First Ordered Date ipratropium-albuterol (DUONE B) 0.5 mg-3 mg(2.5 mg base)/3 mL nebulizer solution 3 mL 1 08/29/2012 documented in this encounter Care Teams [employer] Consultant Relationship Specialty Start Date End Date Remedios Mehta MD [address] [place] [phone] PCP - General 02/19/09 01/04/15 documented as of this encounter
--- OUTSIDE RECORDS SUMMARY | 2024-06-24 02:21 | XMS_ITS | Encounter Summary ---
Author Organization [facility] Address [address] [place] [address] Care Team Providers Care Over [employer] Targeting Supervisor Name Role Phone Remedios Mehta MD Primary Care Provider [phone] Reason for Visit * Reason Comments Asthma with fever intermitt ently over last 7 days Encounter Details Date Type Department Care Team (Late st Contact Info) Description 08/25/2012 16:28 EDT - 08/25/2012 19:01 EDT Hospital Encounter [facility] [address] [place] [address] [id number] Dayna Nava, SALES RESEARCH ANALYST [address] [place], [place] [phone] Unknown, Provider, Pneumonia Discharge Disposition: Home or Self Care Social [...] Sign Reading Time Taken Comments Blood Pressure 117/75 08/25/2012 1635 EDT Pulse 73 08/25/2012 1635 EDT Temperature 36.5 ??C (97.7 ??F) 08/25/2012 1635 EDT Respiratory Rate 24 08/25/2012 1635 EDT Oxygen Saturation 98% 08/25/2012 1840 EDT Inhaled Oxygen Concentration - - Weight - - Height - - Body Mass Index - - documented in this encounter Functional Status Cognitive Status Response Date of Assessm ent Because of a physical, menta l, or emotional condition, do you have serious difficulty concentrating, remembering, or making decisions? (5 years old or older) Yes 04/15/2010 documented as of this encounter Discharge Instructions * Attachments The following attachments cannot be sent through Care Everywhere. * PNEUMONIA: AFTER YOUR VISIT (ROMANIAN) documented in this encounter Medications at Time [...] as directed as needed for Wheezing. 08/29/2012 azithromycin (ZITHROMAX) 250 mg tablet Take 2 tablets (500mg) by mouth on day 1, followed by 1 tablet (250mg) by mouth once daily on days 2 through 5. 6 Tab 0 08/26/2012 08/29/2012 azithromycin (ZITHROMAX) 250 mg tablet Take 1 Tab by mouth daily for 4 days. 4 Tab 0 08/25/2012 08/29/2012 budesonide-formoterol HFA (SYMBICORT) 80-4.5 mcg/actuation HFAA inhalerIndications:As thma,Hyperlipidemia,N eed for Tdap vaccination,Abdominal discomfort,IBS (irritable bowel syndrome),GERD (gastroesophageal reflux disease) Inhale 2 Puffs as directed 2 times daily. 1 Inhaler 5 07/16/2012 06/05/2013 duloxetine (CYMBALTA) 20 mg capsuleIndications:De pression, major Take 1 Cap by mouth 2 times daily. 60 Cap 4 04/04/2012 10/11/2012 fluocinonide (LIDEX) 0.05 % cream Apply to affect area(s) as directed. 60 g 3 03/23/2012 06/05/2013 fluticasone (FLONASE) 50 mcg/actuation nasal sprayIndications:Asth ma,Hyperlipidemia,Nee d for Tdap vaccination,Abdominal discomfort,IBS (irritable bowel syndrome),GERD (gastroesophageal reflux disease) Instill 1 Springer into both nostrils daily. 1 Bottle 5 07/16/2012 06/05/2013 hydrocodone-acetamino phen (LORTAB;VICODIN) 5-500 mg tabletIndications:Art hritis Take 1 Tab by mouth every 6 hours as needed for Pain (up to 4 pills a day). 120 Tab 3 06/04/2012 11/26/2012 hydroxychloroquine (PLAQUENIL) 200 mg tabletIndications:Art hropathy,Arthritis Take 1 Tab by mouth 2 times daily. 60 Tab 11 06/04/2012 01/30/2013 ipratropium-albuterol (DUONEB) 0.5 mg-3 mg(2.5 mg base)/3 mL nebulizer solution Take 3 mL by nebulization every 4 hours as needed for Wheezing. 1 Box 1 08/25/2012 09/12/2012 ketoconazole (NIZORAL) 2 % creamIndications:Rash Apply topically [...] 90 Tab 1 06/07/2012 12/12/2012 predniSONE (DELTASONE) 10 mg tablet Take 40mg x 3 days, 20mg x 3 days, 10mg x 3 days then stop. 21 Tab 0 08/26/2012 08/29/2012 predniSONE (DELTASONE) 20 mg tablet Take 1 Tab by mouth 2 times daily. 8 Tab 0 08/25/2012 10/11/2012 trazodone (DESYREL) 100 mg tabletIndications:Lyubov lgia and myositis,Arthropathy Take 2 Tabs by mouth. Take 1-2 tabs at bedtime for sleep as needed 56 Tab 1 08/15/2012 12/19/2012 zafirlukast (ACCOLATE) 20 mg tabletIndications:Ast hma,Hyperlipidemia,Ne ed for Tdap vaccination,Abdominal discomfort,IBS (irritable bowel syndrome),GERD (gastroesophageal reflux disease) Take 1 Tab by mouth 2 times daily. 60 Tab 5 08/22/2012 10/05/2012 documented as of this encounter Ordered Prescriptions Prescription Sig Dispensed Refills Start Date End Da te albuterol (PROVENTIL HFA, VENTOLIN HFA) 90 mcg/actuation inhaler Inhale 2 Puffs as directed every 4 hours. 1 Inhaler 1 08/25/2012 albuterol (PROVENTIL) 2.5 mg /3 mL (0.083 %) nebulizer solution Take 3 mL by nebulization every 4 hours as needed for Wheezing. 1 Box 1 08/25/2012 azithromycin (ZITHROMAX) 250 mg tablet Take 1 Tab by mouth daily for 4 days. 4 Tab 0 08/25/2012 08/29/2012 predniSONE (DELTASONE) 20 mg tablet Take 1 Tab by mouth 2 times daily. 8 Tab 0 08/25/2012 10/11/2012 ipratropium-albuterol (DUONEB) 0.5 mg-3 mg(2.5 mg base)/3 mL nebulizer solution Take 3 mL by nebulization every 4 hours as needed for Wheezing. 1 Box 1 08/25/2012 09/12/2012 documented in this encounter Discharge Disposition Disposition Code Departure Means Destination Home or Self Care Car documented in this encounter ED Notes * Kathy Muro RN - 08/25/2012 1645 EDT Pt is followed by Pulmonary at [facility]. Has been intermittently congested and coughing and having temps to 101. Yesterday she was told she would need antibiotic, steroid and nebulizer therapy however these orders were never relayed to the pharmacy. Patient is unable to talk in full sentences. Pt descri bes rib pain from coughing and chest heaviness. * Dayna Nava NP - 08/25/2012 1641 EDT DOS: 08/25/2012 Chief Complaint Patient presents with ??? Asthma with fever intermittently over last 7 days The patient is a 52 y.o. female who presents today with Asthma HPI Comments: 52-year-old female with shortness of breath intermittent and worsening during the last week. She was seen one week ago by a specialist for her asthma problem. Her symptoms worsened and yesterday she called the pulmonology office was going to be started on azithromycin. Past medical history: Fibromyalgia and multiple forms of arthritis. Asthma. The history is provided by the patient (Friend- Jeannette). Review of Systems Constitutional: Negative for fever. HENT: Negative for ear pain, sore throat and neck pain. Respiratory: Positive for shortness of breath. Gastrointestinal: Negative for nausea, vomiting and diarrhea. Current Facility-Administered Medications Medication Dose Route Frequency Provider Last Rate Last Dose ??? albuterol (PROVENTIL) 2.5 mg /3 mL (0.083 %) nebulizer solution 2.5 mg 2.5 mg Nebulization Now Dayna Nava NP 2.5 mg at 08/25/12 1642 ??? predniSONE (DELTASONE) tablet 60 mg 60 mg Oral Now Dayna Nava NP 20 mg at 08/25/12 1651 ??? albuterol (PROVENTIL) 2.5 mg /3 mL (0.083 %) nebulizer solution 2.5 mg 2.5 mg Nebulization Now Dayna Nava NP 2.5 mg at 08/25/12 1724 ??? azithromycin (ZITHROMAX) tablet 500 mg 500 mg Oral Now Dayna Nava NP 500 mg at 08/25/12 1901 ??? albuterol (PROVENTIL HFA, VENTOLIN HFA) inhaler 2 Puff 2 Puff Inhalation Now Dayna Nava NP 2 Puff at 08/25/12 1854 Current Outpatient Prescriptions Medication Sig Dispense Refill ??? ipratropium-albuterol (DUONEB) [...] 2 times daily. 8 Tab 0 ??? azithromycin (ZITHROMAX) 250 mg tablet Take 1 Tab by mouth daily for 4 days. 4 Tab 0 ??? lovastatin (MEVACOR) 10 mg [...] (FLONASE) 50 mcg/actuation nasal spray Instill 1 Springer into both nostrils daily. 1 Bottle 5 ??? budesonide-formoterol HFA (SYMBICORT) 80-4.5 mcg/actuation HFAA inhaler Inhale 2 Puffs as directed 2 times daily. 1 Inhaler 5 ??? DISCONTD: budesonide (PULMICORT) 200 mcg/actuation inhaler Inhale 1 [...] Pressure Father ??? High Cholesterol Father BP 117/75 Pulse 73 Temp(Src) 97.7 ??F (36.5 ??C) (Temporal) Resp 24 SpO2 98% PF 225 L/min LMP 03/09/2010 Physical Exam Constitutional: She appears well-nourished. She appears distressed. HENT: Right Ear: External ear normal. Left Ear: External ear normal. Mouth/Throat: Oropharynx is clear and moist. Eyes: Pupils are equal, round, and reactive to light. Neck: Normal range of motion. Neck supple. Cardiovascular: Normal rate, regular rhythm and normal heart sounds. Pulmonary/Chest: She is in respiratory distress. Lymphadenopathy: She has no cervical adenopathy. Neurological: She is alert. Skin: Skin is warm and dry. Psychiatric: She has a normal mood and affect. Consult orders: None PCP: Remedios Strong MD No results found for this visit on 08/25/12. Radiology orders: CHEST PA AND LATERAL CHEST PA AND LATERAL Final result not shown here.: Procedures Course: A medical screening exam was performed. Afebrile vital signs stable Treatment in clinic: Albuterol nebulizer with improvement post neb, and able to speak, but still with short sentences. Second albuterol given And she is speaking almost in full sentences. 02 saturation 98% and her peakflow was 225. Chest X'ray:Right upper lobe pneumonia Plan: Azithromycin, prednisone and albuterol nebulizer and DuoNeb. First dose of azithromycin givenin clinic. First dose of prednisone given in clinic. Albuterol inhaler given to patient due to after hours and pharmacy closed. Solutions for her nebulizer prescribed including albuterol and DuoNeb. She is advised to followup with her primary care doctor in 2 days Evaluation: Patient is much improved after treatment in clinic and she agrees with followup plan. Disposition: Discharged The patient's pain was managed to an adequate level weighing risk vs. benefit of further medications. Upon departure from the [facility], the patient's pain was 4 on a zero to ten scale. Condition at departure from the [facility]: Improved 1. Pneumonia Dr. Jaswant Little was available for consultation during my care of this patient. MDM Number of Diagnoses or Management Options Pneumonia: Amount and/or Complexity of Data Reviewed Tests in the radiology section of CPT??: ordered and reviewed (CHEST PA AND LAT Aug 25, 2012 05:10:00 PM Signs and Symptoms/Comments: Shortness of breath and asthma exacerbation. Fever. Comparison: Acute abdominal series July 09, 2012. Findings: PA and lateral views of the chest were obtained. There is a patchy opacity that projects in the upper lateral right chest on the frontal view the projects just anterior to the trachea on the lateral view. Multiple small, dense nodular opacities are scattered throughout the lungs, likely reflecting prior granulomatous disease. The cardiac silhouette and pulmonary vasculature are normal. There is no pleural effusion or pneumothorax. Impression: Right upper lobe pneumonia. ) 08/25/2012 20:12 documented in this encounter Miscellaneous Notes * Scanned Note-Null - GLASSWARE VERIFIER, SCAN 2 - 08/29/2012 3921 EDT documented in this encounter Plan of Treatment Not on file documented as of this encounter Procedures Procedure Name Priority Date/Time Associated Diagnosis Comments CHEST PA AND LATERAL STAT 08/25/2012 17:10 EDT documented in this encounter Results * CHEST PA AND LATERAL (08/25/2012 17:10 EDT) Anatomical Region Laterality Modality Other 08/25/2012 17:1 0 EDT 08/25/2012 18:20 EDT Narrative 08/25/2012 18:20 EDT CHEST PA AND LAT ??Aug 25, 2012 05:10:00 PM Signs and Symptoms/Comments: ??Shortness of breath and asthma exacerbation. Fever. Comparison: Acute abdominal series July 09, 2012. Findings: PA and lateral views of the chest were obtained. There is a patchy opacity that projects in the upper lateral right chest on the frontal view the projects just anterior to the trachea on the lateral view. Multiple small, dense nodular opacities are scattered throughout the lungs, likely reflecting prior granulomatous disease. The cardiac silhouette and pulmonary vasculature are normal. There is no pleural effusion or pneumothorax. Impression: Right upper lobe pneumonia. Case was reviewed with DAYNA NAVA at the time of dictation I have personally reviewed the images and the above interpretation and agree with the findings. Procedure Note Akira Jaramillo MD - 08/25/2012 CHEST PA AND LAT Aug 25, 2012 05:10:00 PM Signs and Symptoms/Comments: Shortness of breath and asthma exacerbation. Fever. Comparison: Acute abdominal series July 09, 2012. Findings: PA and lateral views of the chest were obtained. There is a patchy opacity that projects in the upper lateral right chest on the frontal view the projects just anterior to the trachea on the lateral view. Multiple small, dense nodular opacities are scattered throughout the lungs, likely reflecting prior granulomatous disease. The cardiac silhouette and pulmonary vasculature are normal. There is no pleural effusion or pneumothorax. Impression: Right upper lobe pneumonia. Case was reviewed with DAYNA NAVA at the time of dictation I have personally reviewed the images and the above interpretation and agree with the findings. Dayna Nava NP IMG DIAGNOS TIC IMAGING ORDERABLES documented in this encounter Visit Diagnoses Diagnosis Pneumonia Pneumonia, organism unspecified documented in this encounter Administered Medications Inactive Administered Medications - up to 3 most recent administrations Medication Order MAR Action Action Date Dose Rate Site albuterol (PROVENTIL HFA, VENTOLIN HFA) inhaler 2 Puff 2 Puff, inhalation, NOW X1, 1 dose, On 08/25/12 at 1915, Routine Given 08/25/2012 18:54 EDT 2 Puffs albuterol (PROVENTIL) 2.5 mg /3 mL (0.083 %) nebulizer solution 2.5 mg 2.5 mg, nebulization, NOW X1, 1 dose, On 08/25/12 at 1700, Routine Given 08/25/2012 16:42 EDT 2.5 mg albuterol (PROVENTIL) 2.5 mg /3 mL (0.083 %) nebulizer solution 2.5 mg 2.5 mg, nebulization, NOW X1, 1 dose, On 08/25/12 at 1745, Routine Given 08/25/2012 17:24 EDT 2.5 mg azithromycin (ZITHROMAX) tablet 500 mg 500 mg, oral, NOW X1, 1 dose, On 08/25/12 at 1915, Routine Given 08/25/2012 19:01 EDT 500 mg Given 08/25/2012 18:51 EDT 500 mg Othe r predniSONE (DELTASONE) tablet 60 mg 60 mg, oral, NOW X1, 1 dose, On 08/25/12 at 1700, Routine Given 08/25/2012 16:51 EDT 20 mg documented in this encounter Discontinued Medications Medication Sig Discontinue Reason Start Date End Da te budesonide (PULMICORT) 200 mcg/actuation inhalerIndications:Asth ma,Hyperlipidemia,Need for Tdap vaccination,Abdominal discomfort,IBS (irritable bowel syndrome),GERD (gastroesophageal reflux disease) Inhale 1 Puff as directed 2 times daily. Therapy completed 07/16/2012 08/25/2012 documented as of this encounter Active and Recently Administered Medications Times are shown in EDT. Scheduled Medication Order 08/23/2012 08/24/2012 08/25/2012 albuterol (PROVENTIL HFA, VENTOLIN HFA) inhaler 2 Puff (COMPLETED) 2 Puff, inhalation, NOW X1, 1 dose, On 08/25/12 at 1915, Routine 1854 (Given - Provid er: Sunshine Everett LPN) albuterol (PROVENTIL) 2.5 mg /3 mL (0.083 %) nebulizer solution 2.5 mg (COMPLETED) 2.5 mg, nebulization, NOW X1, 1 dose, On 08/25/12 at 1700, Routine 1642 (Given - Provid er: Kathy Muro RN) albuterol (PROVENTIL) 2.5 mg /3 mL (0.083 %) nebulizer solution 2.5 mg (COMPLETED) 2.5 mg, nebulization, NOW X1, 1 dose, On 08/25/12 at 1745, Routine 1724 (Given - Provid er: Kathy Muro RN) azithromycin (ZITHROMAX) tablet 500 mg (COMPLETED) 500 mg, oral, NOW X1, 1 dose, On 08/25/12 at 1915, Routine 1851 (Given - Provid er: Sunshine Everett LPN)1901 (Given - Provider: Kathy Muro RN) predniSONE (DELTASONE) tablet 60 mg (COMPLETED) 60 mg, oral, NOW X1, 1 dose, On 08/25/12 at 1700, Routine 1651 (Given - Provid er: Kathy Muro RN) documented in this encounter Orders Nursing Count Last Ordered Date First Orde red Date PULSE OXIMETRY 1 08/25/2012 documented in this encounter Care Teams Over [employer] Targeting Supervisor Relationship Specialty Start Date End Date Remedios Mehta MD [address] [place] [phone] PCP - General 02/19/09 01/04/15 documented as of this encounter
--- OUTSIDE RECORDS SUMMARY | 2024-06-24 02:21 | XMS_ITS | Encounter Summary ---
Author Organization [facility] Address [address] [place] [address] Care Team Providers Care Lithographic Proofer Apprentice Name Role Phone Remedios Mehta MD Primary Care Provider [phone] Reason for Visit * Reason Onset Date Comments Pain 07/18/2012 Encounter Details Date Type Department Care Team (Late st Contact Info) Description 07/18/2012 Telephone [facility] Interventional Pain [address] [place], [place] [id number] Abundio Tubbs, DO [address] [facility] [address] [place], [place] [id number] Pain Social History Tobacco Use Types Packs/Day [...] * Telephone Encounter - Jaimee Schroeder - 07/26/2012 1431 EDT Pt on wait list * Telephone Encounter - Samra Byrne RN - 07/24/2012 0930 EDT RN returned call to pt per Suly. Pt reports her headache was worse when she was up and about and with any activity. She states it was some better with lying down but did not go away until a few days ago. She states it was the worst VELEZ she has ever had. She now reports that her normal headaches are back and sees no improvement in her usual pain presentation at 2 weeks post px. She denies any s/s of infection, no new weakness now but when she had the awful VELEZ she had some mild but noticeable upper extremity weakness that has also resolved. She denies any bowel/bladder problems. She expresses she would not do a repeat of the last injection because of the VELEZ she had. She does report that the day of the injection she had significant relief in her usual pain and then the next day developed the debilitating VELEZ. RN explained that it does sound like she may have had a spinal VELEZ and they usually resolve on their own like hers did and apologized that she was not given instructions to deal with this such as drinking caffeine and lots of fluid along with NSAID'S. Also that Dr Tubbs has a plan fordifferent type of injection and she would not be at risk for spinal VELEZ with these other injections.She would also like to be put on cancel list to get in sooner since she did not get any relief. Forward to PSS * Telephone Encounter - Abundio Tubbs - 07/24/2012 0912 EDT Please check on this patient today. She had a cervical epidural, she developed a headache afterwards which was severe enough to call the clinic with concerns. Please ask if the headache is postural, any fever, any changes in strength, any new numbness, and if the headache is different than migraines she has had before. Please let ME know. Thank you, SI * Telephone Encounter - Kathy Tejada - 07/20/2012 1021 EDT I consulted with Dr. Tran with regard to seeing the patient on a nurse visit or coming in to see a provider. He stated that he doesn't feel that this is an emergency and that the patient can be seen next week. I attempted to call the patient to obtain the status on her migraine today and ask if is positional. She was not available. I asked her to return our call so we could schedule her for a follow-up if she was not better. * Telephone Encounter - Kathy Tejada - 07/19/2012 0850 EDT I returned the patient's call with regard to her migraine.She states that 3 days after the cervicalinjection she started with a migraine.Her arms and shoulders are stiff again. She called her PCP and she referred her back to us as she feels that the symptoms are nerve related due to the procedure.The migraine continues and she is only taking Aleve. Can we offer her any advise? * Telephone Encounter - Katelyn Da Silva - 07/18/2012 1634 EDT Having Headaches SINCE PROCEDURE 07/06/12 Starting on 07/07/12 with a migraine. It's where the spine meets the head. neck is back to being stiff Wants to discuss an intimate moment as well. Please call documented in this encounter Plan of Treatment Not on file documented as of this encounter Visit Diagnoses Not on filedocumented in this encounter Care Teams Lithographic Proofer Apprentice Relationship Specialty Start Date End Date Remedios Mehta MD [address] [place] [phone] PCP - General 02/19/09 01/04/15 documented as of this encounter
--- OUTSIDE RECORDS SUMMARY | 2024-06-24 02:21 | XMS_ITS | Encounter Summary ---
Author Organization [facility] Address [address] [place] [address] Care Team Providers Care Aircraft Machinist Name Role Phone Remedios Mehta MD Primary Care Provider [phone] Reason for Visit * Reason Onset Date Comments Medication Questions 05/29/2012 Encounter Details Date Type Department Care Team (Late st Contact Info) Description 05/29/2012 Telephone [facility] Interventional Pain [address] [place], [place] [phone] Abundio Tubbs, DO [address] [facility] [address] [place], [place] [phone] Medication Questions Social History Tobacco Use Types [...] Telephone Encounter - Delia Lama RN - 05/29/2012 1328 EDT Called pt. Re: what prescription she needed. Message left for pt. Per Edmund Yo he recommended a medrol pack. Asked pt. To call primary care provider for A medrol dose pack. Pt. Invited to call back with questions. * Telephone Encounter - Jaimee Schroeder - 05/29/2012 1310 EDT Pt told them you were going to call in a Rx for her. They have not received anything. documented in this encounter Plan of Treatment Not on file documented as of this encounter Visit Diagnoses Not on filedocumented in this encounter Care Teams Aircraft Machinist Relationship Specialty Start Date End Date Remedios Mehta MD [address] [place] [phone] PCP - General 02/19/09 01/04/15 documented as of this encounter
--- OUTSIDE RECORDS SUMMARY | 2024-06-24 02:21 | XMS_ITS | Encounter Summary ---
Author Organization [facility] Address [address] [place] [address] Care Team Providers Care Overnight Houseperson Name Role Phone Remedios Mehta MD Primary Care Provider [phone] Reason for Visit * Reason Onset Date Comments Advice Only 07/10/2012 Encounter Details Date Type Department Care Team (Late st Contact Info) Description 07/10/[address] [address] Remedios Mehta MD [address] [place] [phone] Advice Only Social History Tobacco Use Types [...] Telephone Encounter - Emily Gibson LPN - 07/10/2012 1540 EDT Spoke with patient who has a migraine after her visit to the ER yesterday. She had an enema with results. She is resting today. Advised to drink Plenty of fluids. Scheduled her a follow up with Dr Strong on Monday07/16/2012 to discuss the past events * Telephone Encounter - Tania Nguyen - 07/10/2012 1402 EDT Cherelle was at the [facility]. She would like to talk with Dr Strong about her visit there. She is getting a lot of different reports about her health and has some questions about them. documented in this encounter Plan of Treatment Not on file documented as of this encounter Visit Diagnoses Not on filedocumented in this encounter Care Teams Overnight Houseperson Relationship Specialty Start Date End Date Remedios Mehta MD [address] [place] [phone] PCP - General 02/19/09 01/04/15 documented as of this encounter
--- OUTSIDE RECORDS SUMMARY | 2024-06-24 02:21 | XMS_ITS | Encounter Summary ---
Author Organization [facility] Address [address] [place] [address] Care Team Providers Care German Instructor Name Role Phone Remedios Mehta MD Primary Care Provider [phone] Reason for Visit * Reason Comments Neck Pain Shoulder Pain bilateral shoulder p ain Arm Pain bilateral arm pain Back Pain upper back pain Encounter Details Date Type Department Care Team (Latest Contact Info) Description 07/06/2012 8:30 EDT Office Visit [facility] Interventional Pain [address], [place] [id number] Abundio Tubbs, DO [address] [place] [address] [address] [place], [place] [id number] Chronic neck pain; Cervical spondylosis Social History Tobacco Use Types Packs/Day Years [...] Sign Reading Time Taken Comments Blood Pressure 126/80 07/06/2012 0949 EDT Pulse 61 07/06/2012 0949 EDT Temperature 35.7 ??C (96.2 ??F) 07/06/2012820 EDT Respiratory Rate 16 07/06/2012 0949 EDT Oxygen Saturation - - Inhaled Oxygen Concentration - - Weight 97.5 kg (215 lb) 07/06/2012820 EDT Height 152.4 cm (5') 07/06/2012 08 EDT Body Mass Index 41.99 07/06/2012820 EDT documented in this encounter Functional Status Cognitive Status Response Date of Assessm ent Because of a physical, menta l, or emotional condition, do you have serious difficulty concentrating, remembering, or making decisions? (5 years old or older) Yes 04/15/2010 documented as of this encounter Patient Instructions * Patient Instructions* Dayna Tiwari RN - 07/06/2012 9:35 EDT [facility] [address] [address] Patient Instructions You have had your cervical Epidural Steroid Injection. The purpose of this [...] pain, continued numbness or weakness of the arms/l functions, please call our office at once. Instructions for follow-up If you have any questions about your block, please call Patient Education Topic: Method: Handout and Verbal Taught to: Patient Barriers: None Outcomes: independent and verbalized understanding Signature:DAYNA TIWARI RN documented in this encounter Progress Notes * Abundio Tubbs - 07/06/2012 0948 EDT PT NAME: Cherelle Husain : 1960 DOS: 07/06/2012 RESIDENTIAL INSURANCE INSPECTOR: Abundio Tubbs DO LINEN MANAGER: N/A PROCEDURE: cervical epidural steroid injection (C5-6 ) DIAGNOSIS: 1. Chronic neck pain 2. Cervical spondylosis INTERVAL HISTORY: Cherelle Husain presents for treatment of her neck pain. She was evaluated last month and reports no changes in symptomology or progression of associated any weakness/numbness. She has pain in the neck which radiates to the shoulders and causes headaches. EXAM Blood pressure 110/64, pulse 63, temperature 35.7 ??C (96.2 ??F), temperature source Tympanic, resp. rate 16, height 152.4 cm (60), weight 97.523 kg (215 lb), last menstrual period 03/09/2010. General:awake, alert, cooperative, no apparent distress Skin: no rashes, bruises or petechiae noted Cervical Spine: paraspinal tenderness at the bilateral lower levels IMPRESSION & PLAN Proceed with GOLDIE as planned during last visit. RTC in 6 weeks for follow up. PROCEDURE: The patient gave informed written consent to proceed with this procedure following a detailed discussion of the risks and benefits associated with cervical epidural steroid injection. The patient wasthen placed in the prone position, the skin over the cervical and thoracic areas was prepped with ch lorhexadine, and the site was draped with sterile towels. Strict sterile technique was maintained throughout the procedure. A gillespie moment was performed with full staff present to identify the patient, verify the procedure being performed, and review allergies. Fluoroscopy was used to identify the C5-C6 disc space. The skin and subcutaneous tissue over this level was anesthetized by injection of 2% lidocaine. An 18 guage touhy needle was inserted under fluoroscopic guidance by coaxial technique and advanced towards the interspace. Loss of resistance with normal saline was used to find the epidural space. One pass was required and there were no paresthesias. Contrast dye was injected under live fluoroscopy demonstrating a typical epidural pattern with no evidence of intravascular or intrathecal injection. After negative aspiration, 80 mg Depo-Medrol and 1 ml Normal Saline were injected. The needle was then flushed and withdrawn. The patient tolerated the procedure well, there were no apparent complications, and she was discharged in stable condition. Written and verbal discharge instructions were reviewed with the patient prior to discharge. 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 (Solids since midnight & [...] encounter Miscellaneous Notes * Scanned Note-Null - SCRAP CARRIER, SCAN 2 - 07/11/2012 1222 EDT documented in this encounter Plan of Treatment Not on file documented as of this encounter Visit Diagnoses Diagnosis Chronic neck pain Cervicalgia Cervical spondylosis Cervical spondylosis without myelopathy documented in this encounter Care Teams German Instructor Relationship Specialty Start Date End Date Remedios Mehta MD [address] [place] [phone] PCP - General 02/19/09 01/04/15 documented as of this encounter
--- OUTSIDE RECORDS SUMMARY | 2024-06-24 02:21 | XMS_ITS | Encounter Summary ---
Author Organization [facility] Address [address] [place] [address] Care Team Providers Care Tubular Riveter Name Role Phone Remedios Mehta MD Primary Care Provider [phone] Reason for Visit * Reason Onset Date Comments Follow-up 09/04/2012 Encounter Details Date Type Department Care Team (Late st Contact Info) Description 09/04/2012 Telephone [facility] - [facility] [address], [place] [phone] Minoo Messer NP [address] [facility], [address] [place] [phone] Follow-up Social History Tobacco Use Types Packs/Day [...] Miscellaneous Notes * Telephone Encounter - Yovana Isabel - 09/04/2012 1027 EST Cherelle is having hystrescopy DNC on 09/17/[address] Schilling documented in this encounter Plan of Treatment Not on file documented as of this encounter Visit Diagnoses Not on filedocumented in this encounter Care Teams Tubular Riveter Relationship Specialty Start Date End Date Remedios Mehta MD [address] [place] [phone] PCP - General 02/19/09 01/04/15 documented as of this encounter
--- OUTSIDE RECORDS SUMMARY | 2024-06-24 02:21 | XMS_ITS | Encounter Summary ---
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 (gastroesophageal reflux disease) Esophageal reflux SOB (shortness of breath) Shortness of breath Calcification of lung Other diseases of lung, not elsewhere classified Anxiety Anxiety state, unspecified documented in this encounter Discontinued Medications Medication Sig Discontinue Reason Start Date End Da te zafirlukast (ACCOLATE) 20 mg tabletIndications:Asthm a Take 1 Tab by mouth 2 times daily. Reorder 09/19/2011 07/16/2012 lovastatin (MEVACOR) 10 mg tabletIndications:Hyper lipidemia Take 1 Tab by mouth daily. Reorder 07/06/2011 07/16/2012 fluticasone (FLONASE) 50 mcg/Actuation nasal spray 1 [place] by Nasal route daily. Reorder 03/17/2011 07/16/2012 budesonide-formoterol (SYMBICORT) 80-4.5 mcg/Actuation HFAA inhaler Inhale 2 Puffs as directed 2 times daily. Reorder 03/17/2011 07/16/2012 budesonide (PULMICORT) 200 mcg/Inhalation inhaler Inhale 1 Puff as directed 2 times daily. Reorder 02/10/2011 07/16/2012 documented as of this encounter Orders Immunization/Injection Count Last Ordered Date First Ordered Date TDAP VACCINE =>7YO IM 1 07/16/2012 documented in this encounter Care Teams Reference Investigator Relationship Specialty Start Date End Date Remedios Mehta MD [address] [place] [phone] PCP - General 02/19/09 01/04/15 documented as of this encounter
--- OUTSIDE RECORDS SUMMARY | 2024-06-24 02:21 | XMS_ITS | Encounter Summary ---
Author Organization [facility] Address [address] [place] [address] Care Team Providers Care Fashion Buying Internship Name Role Phone Remedios Mehta MD Primary Care Provider [phone] [phone] Encounter Details Date Type Department Care Team (Late st Contact Info) Description 04/05/[address] [address] Remedios Mehta MD [address] [place] [phone] Social History Tobacco Use Types Packs/Day [...] on filedocumented in this encounter Care Teams Fashion Buying Internship Relationship Specialty Start Date End Date Remedios Mehta MD [address] [place] [phone] PCP - General 02/19/09 3 documented as of this encounter
--- OUTSIDE RECORDS SUMMARY | 2024-06-24 02:21 | XMS_ITS | Encounter Summary ---
Author Organization [facility] Address [address] [place] [address] Care Team Providers Care Care Consultant Name Role Phone Remedios Mehta MD Primary Care Provider [phone] [phone] Reason for Visit * Reason Onset Date Comments Asthma 08/25/2012 Encounter Details Date Type Department Care Team (Late st Contact Info) Description 08/25/[address] [id number] Remedios Mehta MD [address] [place] [phone] Asthma Social History Tobacco Use Types Packs/Day [...] encounter Miscellaneous Notes * Telephone Encounter - Jagruti Lala MD - 08/25/2012 1521 EDT Patient says she called pulmonary yesterday. Was told she was going to have prednisone, a Z-alfred, and nebulizer phoned in. Prescriptions are not present per patient. Pt states she is blowing 150 in her flow meter. 52yo with likely asthma exacerbation. Advised she be evaluated at the [facility]. I do not feel comfortable phoning in Z-alfred, prednisone, and nebulizer treatments at this time. I spoke to a family member who will bring her in. Jagruti Lala MD Commercial Food Instructor, PGY-3 pager [phone] 08/25/2012 15:29 * Telephone Encounter - Victorina Alejo - 08/25/2012 1259 EDT See information from note that is in pulmonary from yesterday. Patient is very sick she is having an asthma attack and has a terrible cold. States she has not received a call from pulmonary. Elda Yip, RT 08/24/2012 15:53 Signed Called pt who reports she's been sick all week w/ fevers (101.4 yesterday), prod cough w/ yellow-green sputum, + sweats and chills at night and increased SOB. Only taking duo nebs once daily and ?s how often can she take these. She only has one tx left and needs a refill. Usually will order Z Alfred and prednisone taper - last had this about a year ago. Uses [facility] in [place]. Will relay to Dr Hodges for advice. ELDA YIP, RT Rosalva Mukherjee 08/24/2012 10:41 Signed Pt has the flu and flow meter is below the red zone. Pt is light headed and coughing. Please call earlene documented in this encounter Plan of Treatment Not on file documented as of this encounter Visit Diagnoses Not on filedocumented in this encounter Care Teams Care Consultant Relationship Specialty Start Date End Date Remedios Mehta MD [facility] [place] [phone] PCP - General 02/19/09 01/04/15 documented as of this encounter
--- OUTSIDE RECORDS SUMMARY | 2024-06-24 02:21 | XMS_ITS | Encounter Summary ---
Author Organization [facility] Address [address] [place] [address] Care Team Providers Care Diazo Technician Name Role Phone Remedios Mehta MD Primary Care Provider [phone] Encounter Details Date Type Department Care Team (Late st Contact Info) Description 07/13/2012 Abstract [facility] Rehabilitation Therapy - [address] [address] Yonathan Moreland MD Social History Tobacco Use Types Packs/Day Years [...] on filedocumented in this encounter Care Teams Diazo Technician Relationship Specialty Start Date End Date Remedios Mehta MD [address] [place] [phone] PCP - General 02/19/09 01/04/15 documented as of this encounter
--- OUTSIDE RECORDS SUMMARY | 2024-06-24 02:21 | XMS_ITS | Encounter Summary ---
Author Organization [facility] Address [address] [place] [address] Care Team Providers Care Manufacturing Plant Technician Name Role Phone Remedios Mehta MD Primary Care Provider [phone] [phone] Reason for Visit * Reason Onset Date Comments Prior Auth, Medication 08/13/2012 Encounter Details Date Type Department Care Team (Late st Contact Info) Description 08/13/2012 Telephone [facility] Pulmonology & Critical Care - [place] [address] [place] [address] Solange Gustafson MD [address] [place] [phone] Prior Auth, Medication Social History Tobacco Use [...] encounter Miscellaneous Notes * Telephone Encounter - Luisa Venegas - 08/13/2012 1653 EDT No prior auth needed for echocardiogram. documented in this encounter Plan of Treatment Not on file documented as of this encounter Visit Diagnoses Not on filedocumented in this encounter Care Teams Manufacturing Plant Technician Relationship Specialty Start Date End Date Remedios Mehta MD [address] [place] [phone] PCP - General 02/19/09 01/04/15 documented as of this encounter
--- OUTSIDE RECORDS SUMMARY | 2024-06-24 02:21 | XMS_ITS | Encounter Summary ---
Author Organization [facility] Address [address] [place] [address] Care Team Providers Care Coupon Redemption Clerk Name Role Phone Remedios Mehta MD Primary Care Provider [phone] [phone] Reason for Visit * Reason Onset Date Comments Medications Refill 08/22/2012 Encounter Details Date Type Department Care Team (Late st Contact Info) Description 08/22/[address] [address] Remedios Mehta MD [address] [place] [phone] Medications Refill Social History Tobacco Use [...] times daily. 60 Tab 5 08/22/2012 10/05/2012 lovastatin (MEVACOR) 10 mg tabletIndications:Hyperlip idemia,Asthma,Need for Tdap vaccination,Abdominal discomfort,IBS (irritable bowel syndrome),GERD (gastroesophageal reflux disease) Take 1 Tab by mouth daily. 90 Tab 4 08/22/2012 07/12/2013 documented in this encounter Miscellaneous Notes * Telephone Encounter - Deanna Choi - 08/22/2012 0900 EDT Name of Medication -ACCOLATE,LOVASTATIN Last Refill Date -07.16.12 Last Visit Date -07.16.12 Next Visit Date -NONE SCHEDULED Is patient out of medication? -UNKNOWN documented in this encounter Plan of Treatment Not on file documented as of this encounter Visit Diagnoses Diagnosis Hyperlipidemia Other and unspecified hyperlipidemia Asthma Unspecified asthma Need for Tdap vaccination Need for prophylactic vaccination with combined lmsrxzpmvw-dkdpxnw-iktshgeri (DTP) vaccine Abdominal discomfort Abdominal pain, unspecified site IBS (irritable bowel syndrome) Irritable bowel syndrome GERD (gastroesophageal reflux disease) Esophageal reflux documented in this encounter Discontinued Medications Medication Sig Discontinue Reason Start Date End Da te lovastatin (MEVACOR) 10 mg tabletIndications:Hyperli pidemia,Asthma,Need for Tdap vaccination,Abdominal discomfort,IBS (irritable bowel syndrome),GERD (gastroesophageal reflux disease) Take 1 Tab by mouth daily. Reorder 07/16/2012 08/22/2012 zafirlukast (ACCOLATE) 20 mg tabletIndications:Asthma, Hyperlipidemia,Need for Tdap vaccination,Abdominal discomfort,IBS (irritable bowel syndrome),GERD (gastroesophageal reflux disease) Take 1 Tab by mouth 2 times daily. Reorder 07/16/2012 08/22/2012 documented as of this encounter Care Teams Coupon Redemption Clerk Relationship Specialty Start Date End Date Remedios Mehta MD [address] [place] [phone] PCP - General 02/19/09 01/04/15 documented as of this encounter
--- OUTSIDE RECORDS SUMMARY | 2024-06-24 02:21 | XMS_ITS | Encounter Summary ---
Author Organization [facility] Address [address] [place] [address] Care Team Providers Care Welder Assembler Name Role Phone Remedios Mehta MD Primary Care Provider [phone] [phone] Reason for Referral * Radiology Services (Routine/Next Available) - Closed Specialty Diagnoses / Procedures Referred By Contac t Referred To Contact Diagnoses Knee pain Procedures KNEE 1 OR 2 VIEWS Yonathan Moreland MD Referral ID Status Reason Start Date Expiration Date Visits Re quested Visits Authorized [id number] Closed 07/04/2012 1 1 * Radiology Services (Routine/Next Available) - Closed Specialty Diagnoses / Procedures Referred By Contac t Referred To Contact Diagnoses Knee pain Procedures KNEE 1 OR 2 VIEWS Yonathan Moreland MD Referral ID Status Reason Start Date Expiration Date Visits Re quested Visits Authorized [id number] Closed 07/04/2012 1 1 Encounter Details Date Type Department Care Team (Late st Contact Info) Description 07/03/2012 Orders Only [facility] Total Joint Program - [address] [place], [place] [phone] Yonathan Moreland MD Knee pain (Primary Dx) [...] Comments KNEE 1 OR 2 VIEWS Routine 07/09/2012 9:33 EDT Knee pain KNEE 1 OR 2 VIEWS Routine 07/09/2012 9:33 EDT Knee pain documented in this encounter Results * KNEE 1 OR 2 VIEWS (07/09/2012 9:33 EDT) Anatomical Region Laterality Modality Other 07/09/2012 9:33 EDT 07/10/2012 10:22 EDT Narrative 07/10/2012 10:22 EDT KNEE 1 OR 2 VIEWS ??Jul 09, 2012 09:33:00 AM Clinical History/Comments: 719.46-PAIN IN JOINT, LOWER [id number]; left knee pain Comparison: Prior radiographs the most recent from May 24, 2012 and January 10, 2012. Findings: Left knee upright AP and lateral views are obtained and compared with the prior study. No acute fracture seen. Mild to moderate degenerative changes are radiographically evident in the medial femorotibial compartment. No significant degenerative changes evident in the lateral femorotibial compartment. Mild to moderate patellofemoral compartment degenerative changes are noted. A minimal size suprapatellar knee joint effusion is demonstrated. Right knee single AP upright view obtained and compared with the prior study. Previously described total knee arthroplasty. No evidence for failure or loosening of the femoral and tibial prosthetic components on the single AP view. The right knee is incompletely evaluated without the benefit of a lateral view. The lack of a lateral view does not allow for evaluation of patellofemoral compartment structures, nor for detection of a possible knee joint effusion. Procedure Note 07/10/2012 KNEE 1 OR 2 VIEWS Jul 09, 2012 09:33:00 AM Clinical History/Comments: 719.46-PAIN IN JOINT, LOWER [id number]; left knee pain Comparison: Prior radiographs the most recent from May 24, 2012 and January 10, 2012. Findings: Left knee upright AP and lateral views are obtained and compared with the prior study. No acute fracture seen. Mild to moderate degenerative changes are radiographically evident in the medial femorotibial compartment. No significant degenerative changes evident in the lateral femorotibial compartment. Mild to moderate patellofemoral compartment degenerative changes are noted. A minimal size suprapatellar knee joint effusion is demonstrated. Right knee single AP upright view obtained and compared with the prior study. Previously described total knee arthroplasty. No evidence for failure or loosening of the femoral and tibial prosthetic components on the single AP view. The right knee is incompletely evaluated without the benefit of a lateral view. The lack of a lateral view does not allow for evaluation of patellofemoral compartment structures, nor for detection of a possible knee joint effusion. Yonathan Moreland MD [facility] ORDERABLES * KNEE 1 OR 2 VIEWS (07/09/2012 9:33 EDT) Anatomical Region Laterality Modality Other 07/09/2012 9:33 EDT 07/10/2012 10:22 EDT Narrative 07/10/2012 10:22 EDT KNEE 1 OR 2 VIEWS ??Jul 09, 2012 09:33:00 AM Clinical History/Comments: 719.46-PAIN IN JOINT, LOWER [id number]; left knee pain Comparison: Prior radiographs the most recent from May 24, 2012 and January 10, 2012. Findings: Left knee upright AP and lateral views are obtained and compared with the prior study. No acute fracture seen. Mild to moderate degenerative changes are radiographically evident in the medial femorotibial compartment. No significant degenerative changes evident in the lateral femorotibial compartment. Mild to moderate patellofemoral compartment degenerative changes are noted. A minimal size suprapatellar knee joint effusion is demonstrated. Right knee single AP upright view obtained and compared with the prior study. Previously described total knee arthroplasty. No evidence for failure or loosening of the femoral and tibial prosthetic components on the single AP view. The right knee is incompletely evaluated without the benefit of a lateral view. The lack of a lateral view does not allow for evaluation of patellofemoral compartment structures, nor for detection of a possible knee joint effusion. Procedure Note 07/10/2012 KNEE 1 OR 2 VIEWS Jul 09, 2012 09:33:00 AM Clinical History/Comments: 719.46-PAIN IN JOINT, LOWER [id number]; left knee pain Comparison: Prior radiographs the most recent from May 24, 2012 and January 10, 2012. Findings: Left knee upright AP and lateral views are obtained and compared with the prior study. No acute fracture seen. Mild to moderate degenerative changes are radiographically evident in the medial femorotibial compartment. No significant degenerative changes evident in the lateral femorotibial compartment. Mild to moderate patellofemoral compartment degenerative changes are noted. A minimal size suprapatellar knee joint effusion is demonstrated. Right knee single AP upright view obtained and compared with the prior study. Previously described total knee arthroplasty. No evidence for failure or loosening of the femoral and tibial prosthetic components on the single AP view. The right knee is incompletely evaluated without the benefit of a lateral view. The lack of a lateral view does not allow for evaluation of patellofemoral compartment structures, nor for detection of a possible knee joint effusion. Yonathan Moreland MD [facility] ORDERABLES documented in this encounter Visit Diagnoses Diagnosis Knee pain- Primary Pain in joint, lower leg documented in this encounter Care Teams Welder Assembler Relationship Specialty Start Date End Date Remedios Mehta MD [address] [place] [phone] PCP - General 02/19/09 01/04/15 documented as of this encounter
--- OUTSIDE RECORDS SUMMARY | 2024-06-24 02:21 | XMS_ITS | Encounter Summary ---
Author Organization [facility] Address [address] [place] [address] Care Team Providers Care Joinery Machinist Name Role Phone Remedios Mehta MD Primary Care Provider [phone] Reason for Referral * (Routine/Next Available) - Closed Specialty Diagnoses / Procedures Referred By Contmich proctor Referred To Contact Diagnoses SOB (shortness of breath) on exertion Asthma Procedures LUNG VOLUMES (TLC,RV,FRC/TGV,SVC,RAW) Roberto Hodges MD [address] [place] [address] Referral ID Status Reason Start Date Expiration Date Visits Re quested Visits Authorized [id number] Closed 08/01/2012 1 1 * (Routine/Next Available) - Closed Specialty Diagnoses / Procedures Referred By Contmich t Referred To Contact Diagnoses Asthma SOB (shortness of breath) on exertion Procedures DIFFUSING CAPACITY (DLCO) Roberto Hodges MD [address] [place] [address] Referral ID Status Reason Start Date Expiration Date Visits Re quested Visits Authorized [id number] Closed 08/01/2012 1 1 * (Routine/Next Available) - Closed Specialty Diagnoses / Procedures Referred By Contmich t Referred To Contact Diagnoses Asthma SOB (shortness of breath) on exertion Procedures SPIROMETRY Roberto Hodges MD [address] [place] [address] Referral ID Status Reason Start Date Expiration Date Visits Re quested Visits Authorized [id number] Closed 08/01/2012 1 1 * Cardiology (Routine/Next Available) - Closed Specialty Diagnoses / Procedures Referred By Joao proctor Referred To Contact Diagnoses Asthma SOB (shortness of breath) on exertion Procedures ECHOCARDIOGRAM Roberto Hodges MD [address] [place] [phone] Referral ID Status Reason Start Date Expiration Date Visits Re quested Visits Authorized [id number] Closed 08/01/2012 1 1 Reason for Visit * Reason Comments New Patient Visit Encounter Details Date Type Department Care Team (Late st Contact Info) Description 08/01/2012 15:15 EDT Office Visit [facility] Pulmonology & Critical Care - [address] [id number] Unknown, MD Rajendra Solange Gustafson MD [address] [place] [address] [phone] Roberto Hodges MD [address] [place] [phone] Asthma (Primary Dx); SOB (shortness of breath) on exertion Social History Tobacco Use Types Packs/Day Years [...] Reading Time Taken Comments Blood Pressure 110/60 08/01/2012 1537 EDT Pulse 62 08/01/2012 1537 EDT Temperature 36.3 ??C (97.4 ??F) 08/01/2012 1537 EDT Respiratory Rate 14 08/01/2012 1537 EDT Oxygen Saturation 97% 08/01/2012 1537 EDT Inhaled Oxygen Concentration - - Weight 100.2 kg (221 lb) 08/01/2012 1537 EDT Height 153.8 cm (5' 0.55) 08/01/2012 153 EDT Body Mass Index 42.38 08/01/2012 1537 EDT documented in this encounter Functional Status Cognitive Status Response Date of Assessm ent Because of a physical, menta l, or emotional condition, do you have serious difficulty concentrating, remembering, or making decisions? (5 years old or older) Yes 04/15/2010 documented as of this encounter Patient Instructions * Patient Instructions* Roberto Hodges MD - 08/01/2012 17:12 EDT 1. Continue with symbicort and albuterol as needed 2. Continue efforts to lose weight 3. Continue nasal spray and accolade Return in 4 months. documented in this encounter Progress Notes * Roberto Hodges MD - 08/01/2012 2155 EDT This office note has been dictated. * Aruna Nam - 08/01/2012 6828 EDT Testing was performed and recorded in [facility]. See complete report in scanned documents. documented in this encounter Consult Notes * Roberto Hodges MD - 08/03/2012 1058 EDT DIVISION OF PULMONOLOGY CONSULTATION - 08/01/2012 Remedios Strong MD [address] [place] [address] Strong: Thank you requesting our opinion with respect to Ms Husain and her asthma. Dr Gustafson, the pulmonary attending, and I have evaluated her in clinic on 08/01/2012. This letter serves as a summary of our findings, assessment and recommendations. As you know, Ms Husain is a 52-year-old female who has a past medical history significant for morbid obesity and asthma in addition to vocal cord dysfunction. She was seen in pulmonary clinic in 2008, when she was seen by Dr Pantoja and at that time she was on maximum therapy for her asthma including Advair 500/50, zafirlukast and albuterol with no significant improvement in her symptoms. She returns today and states that her asthma continues to be uncontrolled with no real change. She is unable to distinguish between wheezes, which occurred when she has episodes of vocal cord dysfunction as opposed to her regular wheezing. However, at this time she continues using the Advair 500/50and still requires the use of prednisone approximately 3 times per year. She also has approximately1 to 2 ER visits per year for an asthma exacerbation. She states that her albuterol inhaler does not provide much benefit, but she uses it approximately 6 to 7 times per day. Ms Husain also has a history of vocal cord dysfunction for which she was seen by speech language pathology. She states that this did not help and she does not want to return for further treatment. She has significant underlying anxiety disorder and depression, which makes her vocal cord dysfunction worse; however, over the last 6 months, she has only required prednisone once. She has never had any fever, chills, chest pain or cough productive of sputum. She denies any abdominal pain, nausea, vomiting, diarrhea or headaches. She does have chronic pain including fibromyalgia for which she is followed by pain doctor. Ms Husain also states that she has lost approximately 30 pounds over the last two years. She is frustrated and very depressed about her current situation with her increased weight gain. Her BMI is approximately 42 at this visit. At this time, she continues to have dyspnea on exertion and states thatshe can walk approximately two to three blocks before becoming short of breath; however, walking upstairs are very challenging to her and she can only do a few steps at a time before becoming winded. She denies any chest pain. Her past medical history is significant for fibromyalgia, obesity, asthma, depression, generalized anxiety disorder, gastroesophageal reflux, irritable bowel syndrome, hypertension, hyperlipidemia, psoriatic arthritis. Past surgical history: Appendectomy, hernia repair, carpal tunnel, knee surgery, joint replacement of her right knee. Allergies: Numerous allergies including LATEX, ASPIRIN, CHOCOLATE, CODEINE, EGGS, poultry, PENICILLIN, SULFA and soy. Family history: Significant for hypertension, hyperlipidemia and diabetes. Social history: The patient is a former smoker with smoked approximately 1 pack a day for 20 years and quit smoking in 1995. She denies any alcohol use. Currently lives alone at home. She is . She has kids who are grown and do not live at home. She does not have any mold at home and denies being allergic to her pet dog. She has no significant travel history. Physical examination: Vital signs: Blood pressure 110/60, pulse 62, respiratory rate 14, [id number]% on room air. The patient is alert and oriented, in no obvious cardiopulmonary distress. Her mucous membranes are pink and moist. She was anicteric and afebrile. She is morbidly obese. Her neck showed no JVD, no thyromegaly. Cardiovascular exam: S1 and S2 were normal with no murmurs heard, but heart sounds were distant and difficult to auscultate. Air entry was equal and bilateral, but decreased. There were no crackles, no wheezes, no rhonchi. Her abdomen was obese and soft and nontender andno masses palpable. Bowel sounds were present. Neurological exam was grossly intact. Extremities showed trace edema bilaterally with evidence of chronic venous stasis. Skin showed evidence of dermatitis on her upper limbs bilaterally. Her mood was a bit depressed, but her affect was normal. Diagnostic data: A recent CT chest performed on July 18 was reviewed, which showed mild bronchial wall thickening, numerous calcified pulmonary nodules consistent with prior granulomatous disease. There was no significant hilar or mediastinal adenopathy, her lung parenchyma was otherwise unre markable.IgE was normal in 2007. Spirometry today showed an FEV1 to FVC ratio of 1.47, which is 59% predicted with an FEV1/FVC ratioof 99%, FVC was 1.85, which is 59% predicted. There was no bronchodilator response. This is in keeping with normal airflow, but consistent with restriction, muscle weakness or suboptimal effort. It was reported on her spirometry that she had difficulty reaching zero flow and did not make a best effort due to coughing. Assessment: In summary, Ms Husain is a 52-year-old female who has a past medical history significant for symptoms suggestive of asthma in addition to vocal cord dysfunction. She also has other comorbidities including morbid obesity and presents to clinic today mostly for an assessment of a recent CT of the chest, which showed evidence of old granulomatous disease. She was concerned that she has a buildup of calcium in her lung and was concerned that this may be a malignancy or may be contributing to hershortness of breath. I have personally reviewed the CT of her chest with the attending, Dr Gustafson,and we have reassured Ms Husain that these findings are in keeping with old granulomatous disease and are of no health risk to her and are certainly not contributing to her current shortness of breath. With respect to her dyspnea, I think that this is multifactorial. It is very difficult in her case to differentiate between symptoms of asthma and vocal cord dysfunction given her severe underlying depression and anxiety disorder. However, she continues on maximum therapy, which includes Advair 500/50 the use of albuterol inhaler with an antileukotriene therapy, zafirlukast. She is also on Protonix for GERD and Flonase for sinus disease. She does not want to continue with speech therapy for hervocal cord dysfunction. Unfortunately, Ms Husain continues to gain weight since the last time she was seen here in clinic with her BMI increasing from 39 to 43 over the last 3 years. This is definitely contributing to thatoverall worsening health and shortness of breath and dyspnea on exertion. We discussed in detail with Ms Husain efforts to continue exercising although she has significant degenerative joint disease and back pain to continue weight loss. We also discussed efforts with diet and possible referral toa dietitian to assist in meal planning. Other considerations for shortness of breath would include pulmonary hypertension, for which we will order an echo to screen for. Spirometry has never shoewd evidence of airflow limitation or bronchodilator change and she has never had a methacholine challenge. She does have evidence of decreased FVC, which may most likely be in her case due to body habitus. However, at her next visit, we would do full lung function tests including lung volumes and a DLCO in order to differentiate restriction from poor effort. I advised Ms Husain to continue using her daily sinus rinses in addition to her nasal fluticasone.She should also continue on Advair and albuterol as a rescue inhaler with use of a spacer device. Ihave also asked her to continue the use of Accolate and to continue an effort to have environmentalcontrol measures. I will follow up with Ms Husain in approximately 4 months, at which time we will have further lungfunction testing and an echo. I will make further recommendations at this time. Thank you for allowing me to participate in the care of Ms Husain. Sincerely, I saw and examined the patient with the resident/fellow. I agree with the findings and plan of caredocumented in the resident's/fellow's note. Electronically Signed by Solange Gustafson MD 08/07/2012 10:25 Electronically Reviewed by HERMINIA Cruz 08/04/2012 17:03 HERMINIA Cruz Solange Gustafson MD - HERMINIA Cruz - OBIE Job ID: SM Doc ID: [id number] Ext Doc ID: [id number] cc: Remedios Strong MD documented in this encounter Plan of Treatment Not on file documented as of this encounter Procedures Procedure Name Priority Date/Time Associated Diagnosis Comments ECHOCARDIOGRAM Routine 08/17/2012 8:01 EDT Asthma SOB (shortness of breath) on exertion documented in this encounter Results * ECHOCARDIOGRAM (08/17/2012 8:01 EDT) Anatomical Region Laterality Modality Other 08/17/2012 8:01 EDT Narrative 08/17/2012 9:07 EDT *Interpreting Group:* *[facility]* [address] [place] [address] *STUDY CONCLUSIONS* Summary: ?? Left ventricle: The cavity size was normal. Wall thickness was normal. Systolic function was normal. The estimated ejection fraction was 60-65%. Wall motion was normal; there were no diagnostic regional wall motion abnormalities. *PATIENT PRESENTATION* Height: ? 152.4cm (60in ) S/D Pressure: 126 / 75 Weight: ? 97.5kg (214.6lb ) BSA: ?2.09m^2 Test start time: ??07:40 AM. Test stop time: ??08:01 AM. ATTENDING ?Unknown, Doctor REFERRING ?Remedios Strong PERFORMING ?? [facility], Op ORDERING ? Luis Hodges REFERRING ?Luis Hodges MEDIA LIAISON OFFICER ??Mago Ribeiro *PROCEDURE DATA* Procedure information: ??This study was interpreted by [facility] at [facility]. ??Study status: ??Routine. Transthoracic echocardiography. ??M-mode, complete 2D, complete spectral Doppler, and color Doppler. A Transthoracic Echocardiogram was performed. Scanning was performed from the parasternal, apical, subcostal, and suprasternal notch acoustic windows. Images were obtained using a Robert [id number] cardiac ultrasound machine. Image quality was good. The study was technically limited due to body habitus. ??Study completion: The patient tolerated the procedure well. *INDICATIONS AND HISTORY* Indications: ?? 493.90, Asthma unspecified. ??786.05, Shortness of breath. Labs, prior tests, procedures, and surgery: Echocardiography (November 02, 2009). *CARDIAC ANATOMY* Left ventricle: ??The cavity size was normal. Wall thickness was normal. Systolic function was normal. The estimated ejection fraction was 60-65%. Wall motion was normal; there were no diagnostic regional wall motion abnormalities. Aortic valve: ??Not well visualized. Mobility was not restricted. ??Doppler: ??Transvalvular velocity was within the normal range. There was no stenosis. ??No regurgitation. Aorta: ??Aortic root: The aortic root was normal in size. Mitral valve: ?? Structurally normal valve. ?? Mobility was not restricted. ??Doppler: ??Transvalvular velocity was within the normal range. There was no evidence for stenosis. Trivial regurgitation. ?Peak gradient: 3.6mm Hg (D). Left atrium: ??The atrium was normal in size. Right ventricle: ??The cavity size was normal. Wall thickness was normal. Systolic function was normal. Pulmonic valve: ?Doppler: ??Transvalvular velocity was within the normal range. There was no evidence for stenosis. Tricuspid valve: ?? Structurally normal valve. ?Doppler: Transvalvular velocity was within the normal range. ??No regurgitation. Pulmonary artery: ?Systolic pressure could not be accurately estimated. Right atrium: ??The atrium was normal in size. Pericardium: ??There was no pericardial effusion. Systemic veins: Inferior vena cava: The vessel was normal in size. *MEASUREMENT TABLES* 2D measurements ?Normal Left ventricle Volume, ED, MOD, 1-plane ? 71 ml ? ------- Volume, ES, MOD, 1-plane ? 38 ml ? ------- Volume index, ED, MOD, 1-plane ? 34 ml/m^2 ------- Volume index, ES, MOD, 1-plane ? 18 ml/m^2 ------- Aorta Root diameter, ED ?25 mm ? ------- Ascending aorta anterior-posterior ? 32 mm ? ------- diameter, S Left atrium Anterior-posterior dimension ? 36 mm ? ------- Anterior-posterior dimension index ? 1.72 cm/m^2 <2.2 M-mode measurements ?Normal Left ventricle LV internal dimension, ED ?52 mm ? 37-56 LV internal dimension, ES ?33 mm ? ------- Fractional shortening ?37 % ?29-45 LV posterior wall, ED ? 8 mm ? 6-11 Septal/posterior wall ratio, ED ? 1.1 ?------- Relative wall thickness, ED ? 0.3 ?<0.45 Volume, ED, Teichholz ? 130 ml ? ------- Volume, ES, Teichholz ?44.1 ml ? ------- Ejection fraction, Teichholz ? 66.1 % ?64-83 Volume index, ED, Teichholz ?62 ml/m^2 ------- Volume index, ES, Teichholz ?21 ml/m^2 ------- Wall mass ? 156.9 g ?------- Wall mass index ?75.1 g/m^2 ??------- Mass/height ?1.03 g/cm ?? ------- Ventricular septum Septal thickness, ED ?9 mm ? ------- Doppler measurements ? Normal Left ventricle IVRT ? 92 ms ? 60-100 Mitral valve Peak E-wave velocity ? 95.3 cm/s ?? ------- Peak A-wave velocity ? 60.7 cm/s ?? ------- Deceleration time ? 201 ms ? 150-230 Peak gradient, D ?3.6 mm Hg ??------- Peak E/A ratio ? 1.57 ?------- Legend: Mean values are shown as u=mean value. Asterisk (*) shaikh values outside specified normal range. Electronically signed by David Nayak MD [id number] Procedure Note 08/17/2012 *Interpreting Group:* *[facility]* [address] [place] [address] *STUDY CONCLUSIONS* Summary: Left ventricle: The cavity size was normal. Wall thickness was normal. Systolic function was normal. The estimated ejection fraction was 60-65%. Wall motion was normal; there were no diagnostic regional wall motion abnormalities. *PATIENT PRESENTATION* Height: 152.4cm (60in ) S/D Pressure: 126 / 75 Weight: 97.5kg (214.6lb ) BSA: 2.09m^2 Test start time: 07:40 AM. Test stop time: 08:01 AM. ATTENDING Unknown, Doctor REFERRING Remedios Strong PERFORMING Fa, Op ORDERING Luis Hodges REFERRING Luis Hodges MEDIA LIAISON OFFICER Mago Ribeiro *PROCEDURE DATA* Procedure information: This study was interpreted by [facility] at [facility]. Study status: Routine. Transthoracic echocardiography. M-mode, complete 2D, complete spectral Doppler, and color Doppler. A Transthoracic Echocardiogram was performed. Scanning was performed from the parasternal, apical, subcostal, and suprasternal notch acoustic windows. Images were obtained using a Robert [id number] 8 cardiac ultrasound machine. Image quality was good. The study was technically limited due to body habitus. Study completion: The patient tolerated the procedure well. *INDICATIONS AND HISTORY* Indications: 493.90, Asthma unspecified. 786.05, Shortness of breath. Labs, prior tests, procedures, and surgery: Echocardiography (November 02, 2009). *CARDIAC ANATOMY* Left ventricle: The cavity size was normal. Wall thickness was normal. Systolic function was normal. The estimated ejection fraction was 60-65%. Wall motion was normal; there were no diagnostic regional wall motion abnormalities. Aortic valve: Not well visualized. Mobility was not restricted. Doppler: Transvalvular velocity was within the normal range. There was no stenosis. No regurgitation. Aorta: Aortic root: The aortic root was normal in size. Mitral valve: Structurally normal valve. Mobility was not restricted. Doppler: Transvalvular velocity was within the normal range. There was no evidence for stenosis. Trivial regurgitation. Peak gradient: 3.6mm Hg (D). Left atrium: The atrium was normal in size. Right ventricle: The cavity size was normal. Wall thickness was normal. Systolic function was normal. Pulmonic valve: Doppler: Transvalvular velocity was within the normal range. There was no evidence for stenosis. Tricuspid valve: Structurally normal valve. Doppler: Transvalvular velocity was within the normal range. No regurgitation. Pulmonary artery: Systolic pressure could not be accurately estimated. Right atrium: The atrium was normal in size. Pericardium: There was no pericardial effusion. Systemic veins: Inferior vena cava: The vessel was normal in size. *MEASUREMENT TABLES* 2D measurements Normal Left ventricle Volume, ED, MOD, 1-plane 71 ml ------- Volume, ES, MOD, 1-plane 38 ml ------- Volume index, ED, MOD, 1-plane 34 ml/m^2 ------- Volume index, ES, MOD, 1-plane 18 ml/m^2 ------- Aorta Root diameter, ED 25 mm ------- Ascending aorta anterior-posterior 32 mm ------- diameter, S Left atrium Anterior-posterior dimension 36 mm ------- Anterior-posterior dimension index 1.72 cm/m^2 <2.2 M-mode measurements Normal Left ventricle LV internal dimension, ED 52 mm 37-56 LV internal dimension, ES 33 mm ------- Fractional shortening 37 % 29-45 LV posterior wall, ED 8 mm 6-11 Septal/posterior wall ratio, ED 1.1 ------- Relative wall thickness, ED 0.3 <0.45 Volume, ED, Teichholz 130 ml ------- Volume, ES, Teichholz 44.1 ml ------- Ejection fraction, Teichholz 66.1 % 64-83 Volume index, ED, Teichholz 62 ml/m^2 ------- Volume index, ES, Teichholz 21 ml/m^2 ------- Wall mass 156.9 g ------- Wall mass index 75.1 g/m^2 ------- Mass/height 1.03 g/cm ------- Ventricular septum Septal thickness, ED 9 mm ------- Doppler measurements Normal Left ventricle IVRT 92 ms 60-100 Mitral valve Peak E-wave velocity 95.3 cm/s ------- Peak A-wave velocity 60.7 cm/s ------- Deceleration time 201 ms 150-230 Peak gradient, D 3.6 mm Hg ------- Peak E/A ratio 1.57 ------- Legend: Mean values are shown as u=mean value. Asterisk (*) shaikh values outside specified normal range. Electronically signed by David Nayak MD [id number] Roberto Hodges MD CARDIAC ECHO ORDHilton TREJO documented in this encounter Visit Diagnoses Diagnosis Asthma- Primary Unspecified asthma SOB (shortness of breath) on exertion Shortness of breath documented in this encounter Administered Medications Inactive Administered Medications - up to 3 most recent administrations Medication Order MAR Action Action Date Dose Rate Site albuterol (PROVENTIL HFA, VENTOLIN HFA) inhaler 2 Puff 2 Puff, inhalation, NOW X1, 1 dose, On Mon08/01/12 at 1700, Routine Given 08/01/2012 16:44 EDT 2 Puffs documented in this encounter Discontinued Medications Medication Sig Discontinue Reason Start Date End Da te CALCIUM CARBONATE/VITAMIN D3 (CALCIUM 600 WITH VITAMIN D3 ORAL) Take 600 mg by mouth 2 times daily. Patient Stopped Taking 08/01/2012 documented as of this encounter Orders Medications Ordered That Max ht Not Have Been Administered Count Last Ordered Date First Ordered Date albuterol (PROVENTIL HFA, VE NTOLIN HFA) inhaler 2 Puff 1 08/01/2012 PFT Count Last Ordered Date First Orde red Date DIFFUSING CAPACITY (DLCO) 1 08/01/2012 LUNG VOLUMES (TLC,RV,FRC/TGV,SVC,RAW) 1 12/2011 SPIROMETRY 1 08/01/2012 documented in this encounter Care Teams Joinery Machinist Relationship Specialty Start Date End Date Remedios Mehta MD [address] [place] [phone] PCP - General 02/19/09 01/04/15 documented as of this encounter
--- OUTSIDE RECORDS SUMMARY | 2024-06-24 02:22 | XMS_ITS | Encounter Summary ---
Author Organization [facility] Address [address] [place] [address] Care Team Providers Care Multicultural Manager Name Role Phone Remedios Mehta MD Primary Care Provider [phone] Reason for Visit * Reason Onset Date Comments Medications Refill 04/04/2012 Encounter Details Date Type Department Care Team (Late st Contact Info) Description 04/04/[address] [address] Remedios Mehta MD [address] [place] [phone] Medications Refill Social History Tobacco Use [...] Start Date End Da te duloxetine (CYMBALTA) 20 mg capsuleIndications:Depress ion, major Take 1 Cap by mouth 2 times daily. 60 Cap 4 04/04/2012 10/11/2012 documented in this encounter Miscellaneous Notes * Telephone Encounter - Tania Nguyen - 04/04/2012 1703 EDT Last seen 3.7.12 Las fill 11.2.11 documented in this encounter Plan of Treatment Not on file documented as of this encounter Visit Diagnoses Diagnosis Depression, major- Primary Major depressive disorder, single episode, unspecified documented in this encounter Discontinued Medications Medication Sig Discontinue Reason Start Date End Da te duloxetine (CYMBALTA) 20 mg capsuleIndications:Depres oliverio, major Take 1 Cap by mouth 2 times daily. Reorder 08/31/2011 04/04/2012 documented as of this encounter Care Teams Multicultural Manager Relationship Specialty Start Date End Date Remedios Mehta MD [address] [place] [phone] PCP - General 02/19/09 01/04/15 documented as of this encounter
--- OUTSIDE RECORDS SUMMARY | 2024-06-24 02:22 | XMS_ITS | Encounter Summary ---
Author Organization [facility] Address [address] [place] [address] Care Team Providers Care Media Specialist Name Role Phone Remedios Mehta MD Primary Care Provider [phone] [phone] Encounter Details Date Type Department Care Team (Late st Contact Info) Description 04/04/[address] [address] Remedios Mehta MD [address] [place] [phone] Social History Tobacco Use Types Packs/Day [...] on filedocumented in this encounter Care Teams Media Specialist Relationship Specialty Start Date End Date Remedios Mehta MD [address] [place] [address] PCP - General 02/19/09 3 documented as of this encounter
--- OUTSIDE RECORDS SUMMARY | 2024-06-24 02:22 | XMS_ITS | Encounter Summary ---
Author Organization [facility] Address [address] [place] [address] Care Team Providers Care Senior Energy Consultant Name Role Phone Remedios Mehta MD Primary Care Provider +1 [phone] Reason for Visit * Reason Onset Date Comments Medications Refill 01/12/2012 Encounter Details Date Type Department Care Team (Late st Contact Info) Description 01/12/[address] [address] Remedios Mehta MD [address] [place] [phone] Medications Refill Social History Tobacco Use Types Packs/Day Years Used Date Smoking Tobacco: Former Smokeless Tobacco: Never Comments:quit 20+ yr ago [...] End Da te hydrocodone-acetaminophen (LORTAB;VICODIN) 5-500 mg per tabletIndications:Arthriti s Take 1 Tab by mouth every 6 hours as needed for Pain for 28 days. 84 Tab 0 01/13/2012 03/05/2012 documented in this encounter Miscellaneous Notes * Telephone Encounter - Kathy Pollard - 01/12/2012 1354 EDT Last Refill Date - 1 Last Visit Date - 3 Next Visit Date - 4 Is patient out of medication? unknown documented in this encounter Plan of Treatment Not on file documented as of this encounter Visit Diagnoses Diagnosis Arthritis- Primary Arthropathy, unspecified, site unspecified documented in this encounter Discontinued Medications Medication Sig Discontinue Reason Start Date End Da te hydrocodone-acetaminophe n (LORTAB;VICODIN) 5-500 mg per tabletIndications:Arthri tis Take 1 Tab by mouth every 6 hours as needed for Pain. Reorder 10/31/2011 01/12/2012 documented as of this encounter Care Teams Senior Energy Consultant Relationship Specialty Start Date End Date Remedios Mehta MD [address] [place] [phone] PCP - General 02/19/09 01/04/15 documented as of this encounter
--- OUTSIDE RECORDS SUMMARY | 2024-06-24 02:22 | XMS_ITS | Encounter Summary ---
Author Organization [facility] Address [address] [place] [address] Care Team Providers Care Airplane Gas Tank Liner Assembler Name Role Phone Remedios Mehta MD Primary Care Provider [phone] [phone] Encounter Details Date Type Department Care Team (Late st Contact Info) Description 08/08/[address] [facility] Medicine [address] [address] Mago Vallecillo MD [address] [place] [address] Depression, major (Primary Dx); Anxiety Social History Tobacco Use Types Packs/Day [...] by mouth 2 times daily. 60 Cap 1 08/13/2011 08/31/2011 citalopram (CELEXA) 20 mg tabletIndications:Depressi on, major Take 1 Tab by mouth 2 times daily. 20 Tab 0 08/13/2011 08/31/2011 documented in this encounter Progress Notes * Mago Vallecillo MD - 08/08/2011 8898 EDT There is a new FDA recommendation for taking more than 60 mg of Celexa due to some potential heart effects and possible irregular rhythm. Doses higher than 40 mg have NOT been shown to help improve depression symptoms any more. TC to patient to review above - no answer 08/13/2011. Patient is comfortable with dose change to 40 mg daily- No - was not good enough on 40 mg per day. Did better on Cymbalta - would like to return to that. Will decrease to 20 mg bid until Cymbalta is prior authorized. Appointment made for follow up Yes - early August with [place]. documented in this encounter Plan of Treatment Not on file documented as of this encounter Visit Diagnoses Diagnosis Depression, major- Primary Major depressive disorder, single episode, unspecified Anxiety Anxiety state, unspecified documented in this encounter Discontinued Medications Medication Sig Discontinue Reason Start Date End Da te citalopram (CELEXA) 20 mg tabletIndications:Depress ion, major Take 3 Tabs by mouth daily. Reorder 06/08/2011 08/13/2011 documented as of this encounter Care Teams Airplane Gas Tank Liner Assembler Relationship Specialty Start Date End Date Remedios Mehta MD [address] [place] [phone] PCP - General 02/19/09 01/04/15 documented as of this encounter
--- OUTSIDE RECORDS SUMMARY | 2024-06-24 02:22 | XMS_ITS | Encounter Summary ---
Author Organization [facility] Address [address] [place] [address] Care Team Providers Care Property Controller Name Role Phone Remedios Mehta MD Primary Care Provider +1 [phone] Reason for Visit * Reason Onset Date Comments Medication Problem 07/11/2011 Encounter Details Date Type Department Care Team (Late st Contact Info) Description 07/11/[address] [address] Remedios Mehta MD [address] [place] [phone] Medication Problem Social History Tobacco Use Types Packs/Day Years [...] disease) Take 1 Tab by mouth daily. 30 Tab 1 07/12/2011 09/19/2011 documented in this encounter Miscellaneous Notes * Telephone Encounter - Anjelica Armstrong - 07/12/2011 1621 EDT Left message that a rx was called into her pharmacy for pantaprazole 40 mg * Telephone Encounter - Remedios Strong MD - 07/12/2011 1547 EDT Ordered pantoprazole, 40mg. Please notify patient. * Telephone Encounter - Anjelica Armstrong - 07/12/2011 1146 EDT Spoke with Cherelle.She states that she takes the Omeprazole around 7:00 in the morning and by 2:00 shegets the burning and bloating again.States the medication is not working for her. Will notify Dr. Strong * Telephone Encounter - Anjelica Armstrong - 07/11/2011 1358 EDT LMTCB * Telephone Encounter - Brook Weathers - 07/11/2011 1240 EDT She is using Omeprazole 20 mg delayed release (over the counter). This medication is no longer working for her. Please advise documented in this encounter Plan of Treatment Not on file documented as of this encounter Visit Diagnoses Diagnosis GERD (gastroesophageal reflux disease)- Primary Esophageal reflux documented in this encounter Discontinued Medications Medication Sig Discontinue Reason Start Date End Da te omeprazole (PRILOSEC) 20 mg capsule Take 1 Cap by mouth 2 times daily. dose increase 02/03/2010 07/12/2011 documented as of this encounter Care Teams Property Controller Relationship Specialty Start Date End Date Remedios Mehta MD [address] [place] [phone] PCP - General 02/19/09 01/04/15 documented as of this encounter
--- OUTSIDE RECORDS SUMMARY | 2024-06-24 02:22 | XMS_ITS | Encounter Summary ---
Author Organization [facility] Address [address] [place] [address] Care Team Providers Care Certified Tumor Registrar Name Role Phone Remedios Mehta MD Primary Care Provider [phone] [phone] Encounter Details Date Type Department Care Team (Latest Contact Info) Description 03/28/2012 10:24 EDT - 03/28/2012 23:59 EDT Hospital Encounter [facility] [id number] [place] [address] Delia Perez, MARIA [address] [phone] Discharge Disposition: Home or Self Care Social [...] as directed as needed for Wheezing. 08/29/2012 albuterol-ipratropium (DUONEB) 0.5-2.5 mg/3 mL nebulizer solution Take 3 mL by nebulization every 4 hours as needed for Wheezing. 06/04/2012 budesonide (PULMICORT) 200 mcg/Inhalation inhaler Inhale 1 [...] mouth 2 times daily. 60 Cap 4 08/31/2011 04/04/2012 fluocinonide (LIDEX) 0.05 % cream Apply to affect area(s) as directed. 60 g 3 03/23/2012 06/05/2013 fluticasone (FLONASE) 50 mcg/Actuation nasal spray 1 [place] by Nasal route daily. 1 Bottle 5 03/17/2011 07/16/2012 hydrocodone-acetamino phen (LORTAB;VICODIN) 5-500 mg per tabletIndications:Art hritis Take 1 Tab by mouth every 8 hours as needed for Pain. 90 Tab 3 03/05/2012 06/04/2012 hydroxychloroquine (PLAQUENIL) 200 mg tabletIndications:Art hropathy Take 1 Tab by mouth 2 times daily. 180 Tab 1 11/18/2011 06/04/2012 ketoconazole (NIZORAL) 2 % creamIndications:Rash Apply topically daily. Apply to affect area(s) as directed. 1 Tube 1 02/17/2010 04/18/2021 loratadine (CLARITIN) 10 mg tabletIndications:All ergic rhinitis Take 1 Tab by mouth daily. 90 Tab 1 06/08/2011 06/07/2012 lovastatin (MEVACOR) 10 mg tabletIndications:Hyp erlipidemia Take 1 Tab by mouth daily. 90 Tab 4 07/06/2011 07/16/2012 methotrexate 2.5 mg tablet Take 6 Tabs by mouth once a week. 24 Each 3 03/05/2012 06/04/2012 metoprolol (LOPRESSOR) 25 mg tabletIndications:Hyp ertension Take 1 Tab by mouth 2 times daily. 180 Tab 4 03/30/2011 04/04/2012 pantoprazole (PROTONIX) 40 mg tabletIndications:MONALISA D (gastroesophageal reflux disease) Take 1 Tab by mouth daily. 90 Tab 1 11/21/2011 06/07/2012 trazodone (DESYREL) 100 mg tabletIndications:Lyubov lgia and myositis,Arthropathy Take 2 Tabs by mouth. Take 1-2 tabs at bedtime for sleep as needed 56 Tab 1 11/18/2011 04/04/2012 zafirlukast (ACCOLATE) 20 mg tabletIndications:Ast hma Take 1 Tab by mouth 2 times daily. 60 Tab 5 09/19/2011 07/16/2012 documented as of this encounter Discharge Disposition Disposition Code Departure Means Destination Home or Self [facility] documented in this encounter Plan of Treatment Not on file documented as of this encounter Visit Diagnoses Not on filedocumented in this encounter Care Teams Certified Tumor Registrar Relationship Specialty Start Date End Date Remedios Mehta MD [address] [place] [phone] PCP - General 02/19/09 01/04/15 documented as of this encounter
--- OUTSIDE RECORDS SUMMARY | 2024-06-24 02:22 | XMS_ITS | Encounter Summary ---
Author Organization [facility] Address [address] [place] [address] Care Team Providers Care Meat Clerk Name Role Phone Remedios Mehta MD Primary Care Provider [phone] [phone] Reason for Visit * Reason Comments Rash On bilateral arms th at is spreading since Monday03/17/2012 Encounter Details Date Type Department Care Team (Late st Contact Info) Description 03/23/2012 11:00 EDT Office Visit [address] [id number] Abisai Garcia MD Dermatitis (Primary Dx) Social History Tobacco Use Types [...] Reading Time Taken Comments Blood Pressure 100/54 03/23/2012 1058 EDT Pulse 64 03/23/2012 1058 EDT Temperature 36.4 ??C (97.5 ??F) 03/23/2012 1058 EDT Respiratory Rate - - Oxygen Saturation - - Inhaled Oxygen Concentration - - Weight 97.5 kg (215 lb) 03/23/2012 1058 EDT With shoes Height - - Body Mass Index 41.99 01/04/2012 1145 EST documented in this encounter Functional Status Cognitive Status Response Date of Assessm ent Because of a physical, menta l, or emotional condition, do you have serious difficulty concentrating, remembering, or making decisions? (5 years old or older) Yes 04/15/2010 documented as of this encounter Patient Instructions * Patient Instructions* Abisai Garcia MD - 03/23/2012 11:17 EDT Lidex cream three times daily to most affected rash. Sun protection. Sunscreen in future. Claritin (you already take) may help itch, but you can also add Benadryl by mouth for itch. Call if worse. Recheck if not better 4 days. documented in this encounter Ordered Prescriptions Prescription Sig Dispensed Refills Start Date End Da te fluocinonide (LIDEX) 0.05 % cream Apply to affect area(s) as directed. 60 g 3 03/23/2012 06/05/2013 documented in this encounter Progress Notes * Abisai Garcia MD - 03/23/2012 1110 EDT Encounter Diagnosis Name Primary? Dermatitis Yes S: Itchy raised red rash for 5 days. Tried Nizoral and vinegar topically. Was in sun a lot day/day before rash. No sunscreen. Left arm was in sun more than right. Rash firstleft extensor arm, more than right arm. A couple spots legs. No rash in non-sun exposed areas. O: Blood pressure 100/54, pulse 64, temperature 36.4 ??C (97.5 ??F), temperature source Oral, weight 97.523 kg (215 lb), last menstrual period 03/09/2010. Med list reviewed. Papulovesicular dermatitis extensor left arm on erythematous base. Spotty less obvious rash for extensor forearm, a couple small spots anterior lower legs. A: Encounter Diagnosis Name Primary? Dermatitis Yes consistent with photodermatitis. P: Lidex cream three times daily to most affected rash. Sun protection. Sunscreen in future. Claritin (you already take) may help itch, but you can also add Benadryl by mouth for itch. Call if worse. Recheck if not better 4 days. Contingency - prednisone pulse again. * Sherri Escoto LPN - 03/23/2012 1103 EDT Patient declined Tdap Vaccine this date due to her rash.MK documented in this encounter Plan of Treatment Not on file documented as of this encounter Visit Diagnoses Diagnosis Dermatitis- Primary Contact dermatitis and other eczema, due to unspecified cause documented in this encounter Discontinued Medications Medication Sig Discontinue Reason Start Date End Da te predniSONE (DELTASONE) 10 mg tablet 30 mg daily x 3 days, 20 mg daily x 3 days, 10 mg daily x 3 days Therapy completed 03/05/2012 03/23/2012 documented as of this encounter Care Teams Meat Clerk Relationship Specialty Start Date End Date Remedios Mehta MD [address] [place] [phone] PCP - General 02/19/09 01/04/15 documented as of this encounter
--- OUTSIDE RECORDS SUMMARY | 2024-06-24 02:22 | XMS_ITS | Encounter Summary ---
Author Organization [facility] Address [address] [place] [address] Care Team Providers Care Regulatory Affairs Strategy Specialist Name Role Phone Remedios Mehta MD Primary Care Provider +1 [phone] Encounter Details Date Type Department Care Team (Late st Contact Info) Description 09/14/2011 Phlebotomy Only [address] [address] Mail Clerk Bills, Outpatient Encounter for long-term (current) use of other medications; Routine gynecological examination; Annual physical exam; Asthma; Obesity; Hyperlipidemia; Fibromyalgia; Need for influenza vaccination; Urinary frequency; Pelvic pain in female; Fatigue Social History Tobacco Use Types Packs/Day Years [...] Comments COMPLETE BLOOD COUNT AND DIFFERENTIAL Routine 09/14/2011 10:30 EST Routine gynecological examination Annual physical exam Asthma Obesity Hyperlipidemia Fibromyalgia Need for influenza vaccination Urinary frequency Pelvic pain in female Fatigue TSH Routine 09/14/2011 10:30 EST Routine gynecological examination Annual physical exam Asthma Obesity Hyperlipidemia Fibromyalgia Need for influenza vaccination Urinary frequency Pelvic pain in female Fatigue HEMOGLOBIN A1C Routine 09/14/2011 10:30 EST Routine gynecological examination Annual physical exam Asthma Obesity Hyperlipidemia Fibromyalgia Need for influenza vaccination Urinary frequency Pelvic pain in female Fatigue LIPID PROFILE (INCLUDES CHOLESTEROL, TRIGLYCERIDES, HDL, LDL) Routine 09/14/2011 10:30 EST Routine gynecological examination Annual physical exam Asthma Obesity Hyperlipidemia Fibromyalgia Need for influenza vaccination Urinary frequency Pelvic pain in female Fatigue COMPREHENSIVE METABOLIC PANEL (CMP) Routine 09/14/2011 10:30 EST Routine gynecological examination Annual physical exam Asthma Obesity Hyperlipidemia Fibromyalgia Need for influenza vaccination Urinary frequency Pelvic pain in female Fatigue documented in this encounter Results * HEMAGRAM AND DIFFERENTIAL (09/14/2011 10:30 EST) WBC 5.14 4.0 - 12.4 K/cmm [facility] RBC 3.91 3.86 - 5.04 M/cmm [facility] Hemoglobin 12.6 11.6 - 15.2 gm/dl [facility] HCT 36.0 34.9 - 44.4 % [facility] MCV 92 81 - 98 fl [facility] MCH 32.2 26.7 - 33.3 pg [facility] MCHC 35.0 32.1 - 35.9 gm/dl [facility] PLT 259 141 - 320 K/cmm [facility] RDW-CV 13.1 11.7 - 14.6 % [facility] % Neutrophils 52.3 45.5 - 79.7 % [facility] % Lymphocytes 36.9 15.0 - 46.8 % [facility] % Monocytes 7.6 1.8 - 12.0 % [facility] % Eosinophils 2.6 0.6 - 6.9 % [facility] % Basophils 0.6 0.2 - 1.4 % [facility] ABS Neutrophils 2.69 2.20 - 8.85 K/cmm [facility] ABS Lymphs 1.90 1.09 - 3.30 K/cmm [facility] ABS Monocytes 0.39 0.1 - 0.8 K/cmm [facility] ABS Eosinophils 0.13 0.03 - 0.61 K/cmm [facility] ABS Basophils 0.03 0.01 - 0.11 K/cmm [facility] Type of Diff: Automated [facility] Blood specimen (specimen) 09/14/2011 10:30 EST 09/14/2011 11:29 EST Remedios Mehta MD PACKAGES & DNA NH OBE ORDERABLES Performing Organization Address [facility] Co de Phone Number [facility] [address] [place] [address] * (ABNORMAL) LIPID PROFILE (INCLUDES CHOLESTEROL, TRIGLYCERIDES, HDL, LDL) (09/14/2011 10:30 EST) Cholesterol 196 mg/dl [facility] Comment: Desirable:<200 Borderline High:200-239 High:>cq=568 Triglycerides 192(H) 35 - 160 mg/dl [facility] HDL 40 mg/dl [facility] Comment: Low:<40 High(Desirable):>or=60 LDL, Calculated 118 mg/dl [facility] Comment: Optimal:<100 Above optimal:100-129 Borderline High:130-159 High:160-189 Very High:>fj=212 Chol/HDL Ratio 4.9 [facility] Fasting? Yes [facility] Blood specimen (specimen) 09/14/2011 10:30 EST 09/14/2011 11:29 EST Remedios Mehta MD CHEMISTRY & BLOOD GAS ORDERABLES Performing Organization Address [facility] Co de Phone Number [facility] [address] [place] [address] * TSH (09/14/2011 10:30 EST) TSH 1.36 0.35 - 5.00 uIU/ml [facility] Blood specimen (specimen) 09/14/2011 10:30 EST 09/14/2011 11:29 EST Remedios Mehta MD CHEMISTRY & BLOOD GAS ORDERABLES Performing Organization Address [facility] de Phone Number [facility] [address] [place] [address] * HEMOGLOBIN A1C (09/14/2011 10:30 EST) Pathologist [facility] Hemoglobin A1C 5.8 % [facility] Comment: Reference Range: <5.7% Normal 5.7-6.4% Increased risk for diabetes =>6.5% Diagnostic for diabetes (if confirmed) The A1c goal for non adults in general is <7%. The A1c goal for selected patients may be significantly lower than 7% if this can be achieved without significant hypoglycemia or other adverse effects of treatment. Est Avg Glucose 120 mg/dl [facility] Comment: eAG represents the A1c result expressed as average glucose in mg/dl. Blood specimen (specimen) 09/14/2011 10:30 EST 09/14/2011 11:29 EST Remedios Mehta MD CHEMISTRY & BLOOD GAS ORDERABLES Performing Organization Address [facility] de Phone Number [facility] [address] [place] [address] * COMPREHENSIVE METABOLIC PANEL (CMP) (09/14/2011 10:30 EST) Pathologist [facility] Potassium 4.2 3.5 - 5.0 mEq/L [facility] Sodium 141 136 - 145 mEq/L [facility] Chloride 105 96 - 110 mEq/L [facility] CO2 28 24 - 32 mEq/L [facility] Total Alkaline Phosphatase 63 38 - 126 U/L [facility] Bilirubin, Total 0.8 0.2 - 1.3 mg/dl [facility] AST 17 15 - 46 U/L [facility] ALT 28 9 - 52 U/L [facility] Albumin 4.0 3.4 - 4.9 g/dl [facility] Total Protein 6.7 6.5 - 8.3 g/dl [facility] Creatinine 0.77 0.7 - 1.5 mg/dl [facility] GFR, Calculated >60 >60 ml/min/1.7 3m2 [facility] BUN 17 10 - 26 mg/dl [facility] Calcium 9.3 8.5 - 10.5 mg/dl [facility] Calculated Calcium 9.7 8.5 - 10.5 mg/dl [facility] Glucose, Serum 80 70 - 100 mg/dl [facility] Fasting? Yes [facility] Blood specimen (specimen) 09/14/2011 10:30 EST 09/14/2011 11:29 EST Remedios Mehta MD CHEMISTRY & BLOOD GAS ORDERABLES [facility] [address] [place] [address] documented in this encounter Visit Diagnoses Diagnosis Encounter for long-term (current) use of other medications Routine gynecological examination Annual physical exam Routine general medical examination at a health care facility Asthma Unspecified asthma Obesity Obesity, unspecified Hyperlipidemia Other and unspecified hyperlipidemia Fibromyalgia Mylagia and myositis, unspecified Need for influenza vaccination Need for prophylactic vaccination and inoculation against influenza Urinary frequency Pelvic pain in female Unspecified symptom associated with female genital organs Fatigue Other malaise and fatigue documented in this encounter Care Teams Regulatory Affairs Strategy Specialist Relationship Specialty Start Date End Date Remedios Mehta MD [address] [place] [phone] PCP - General 02/19/09 01/04/15 documented as of this encounter
--- OUTSIDE RECORDS SUMMARY | 2024-06-24 02:22 | XMS_ITS | Encounter Summary ---
Author Organization [facility] Address [address] [place] [address] Care Team Providers Care Private Security Guard Name Role Phone Remedios Mehta MD Primary Care Provider [phone] [phone] Reason for Visit * Reason Onset Date Comments Medications Refill 11/18/2011 Encounter Details Date Type Department Care Team (Late st Contact Info) Description 11/18/[address] [address] Remedios Mehta MD [address] [place] [phone] Medications Refill Social History Tobacco Use [...] 1 11/21/2011 06/07/2012 trazodone (DESYREL) 100 mg tabletIndications:Myalgia and myositis,Arthropathy Take 2 Tabs by mouth. Take 1-2 tabs at bedtime for sleep as needed 56 Tab 1 11/18/2011 04/04/2012 hydroxychloroquine (PLAQUENIL) 200 mg tabletIndications:Arthrop athy Take 1 Tab by mouth 2 times daily. 180 Tab 1 11/18/2011 06/04/2012 documented in this encounter Miscellaneous Notes * Telephone Encounter - Tania Nguyen - 11/18/2011 1334 EST Last seen .02.08 Next appt 02.01.12 Last fill 8.2.11 She is out documented in this encounter Plan of Treatment Not on file documented as of this encounter Visit Diagnoses Diagnosis Arthropathy Arthropathy, unspecified, site unspecified Myalgia and myositis Mylagia and myositis, unspecified GERD (gastroesophageal reflux disease) Esophageal reflux documented in this encounter Discontinued Medications Medication Sig Discontinue Reason Start Date End Da te hydroxychloroquine (PLAQUENIL) 200 mg tabletIndications:Arthro magalys Take 1 Tab by mouth 2 times daily. Reorder 05/31/2011 11/18/2011 trazodone (DESYREL) 100 mg tabletIndications:Myalgi a and myositis,Arthropathy Take 2 Tabs by mouth. Take 1-2 tabs at bedtime for sleep as needed Reorder 05/31/2011 11/18/2011 pantoprazole (PROTONIX) 40 mg tabletIndications:GERD (gastroesophageal reflux disease) Take 1 Tab by mouth daily. Reorder 09/19/2011 11/21/2011 documented as of this encounter Care Teams Private Security Guard Relationship Specialty Start Date End Date Remedios Mehta MD [address] [place] [phone] PCP - General 02/19/09 01/04/15 documented as of this encounter
--- OUTSIDE RECORDS SUMMARY | 2024-06-24 02:22 | XMS_ITS | Encounter Summary ---
Author Organization [facility] Address [address] [place] [address] Care Team Providers Care Rubber Cutter Name Role Phone Remedios Mehta MD Primary Care Provider + [phone] Reason for Visit * Reason Onset Date Comments Medications Refill 11/18/2011 Encounter Details Date Type Department Care Team (Late st Contact Info) Description 11/18/2011 Refill [facility] Rheumatology & Immunology - [facility] [address], [place] [id number] Waleska Barboza MD [address] [place] [address], [address] [place] [address] Medications Refill Social History Tobacco Use Types [...] Dispensed Refills Start Date End Da te methotrexate 2.5 mg tablet Take 4 Tabs by mouth once a week. 16 Each 3 11/18/2011 03/05/2012 documented in this encounter Plan of Treatment Not on file documented as of this encounter Visit Diagnoses Not on filedocumented in this encounter Discontinued Medications Medication Sig Discontinue Reason Start Date End Da te methotrexate 2.5 mg tablet TAKE 4 TABLETS BY MOUTH ONCE A WEEK Reorder 07/04/2011 11/18/2011 documented as of this encounter Care Teams Rubber Cutter Relationship Specialty Start Date End Date Remedios Mehta MD [address] [place] [phone] PCP - General 02/19/09 01/04/15 documented as of this encounter
--- OUTSIDE RECORDS SUMMARY | 2024-06-24 02:22 | XMS_ITS | Encounter Summary ---
Author Organization [facility] Address [address] [place] [address] Care Team Providers Care Director Of Marketing Operations Name Role Phone Remedios Mehta MD Primary Care Provider [phone] [phone] Encounter Details Date Type Department Care Team (Latest Contact Info) Description 09/14/2011 9:59 EST - 09/14/2011 23:59 EST Hospital Encounter [address] [address] Remedios Mehta MD [address] [place] [phone] Discharge Disposition: Home or Self Care [...] times daily. 60 Cap 4 08/31/2011 04/04/2012 fluticasone (FLONASE) 50 mcg/Actuation nasal spray 1 [place] by Nasal route daily. 1 Bottle 5 03/17/2011 07/16/2012 hydrocodone-acetamino phen (LORTAB;VICODIN) 5-500 mg per tabletIndications:Art hritis Take 1 Tab by mouth every 6 hours as needed for Pain. 84 Tab 1 08/19/2011 10/28/2011 hydroxychloroquine (PLAQUENIL) 200 mg tabletIndications:Art hropathy Take 1 Tab by mouth 2 times daily. 180 Tab 1 05/31/2011 11/18/2011 ketoconazole (NIZORAL) 2 % creamIndications:Rash Apply topically daily. Apply to affect area(s) as directed. 1 Tube 1 02/17/2010 04/18/2021 loratadine (CLARITIN) 10 mg tabletIndications:All ergic rhinitis Take 1 Tab by mouth daily. 90 Tab 1 06/08/2011 06/07/2012 lorazepam (ATIVAN) 0.5 mg Tab Take 0.5 mg by mouth as needed. 03/05/2012 lovastatin (MEVACOR) 10 mg tabletIndications:Hyp erlipidemia Take 1 Tab by mouth daily. 90 Tab 4 07/06/2011 07/16/2012 methotrexate 2.5 mg tablet TAKE 4 TABLETS BY MOUTH ONCE A WEEK 16 Each 3 07/04/2011 11/18/2011 metoprolol (LOPRESSOR) 25 mg tabletIndications:Hyp ertension Take 1 Tab by mouth 2 times daily. 180 Tab 4 03/30/2011 04/04/2012 pantoprazole (PROTONIX) 40 mg tabletIndications:MONALISA D (gastroesophageal reflux disease) Take 1 Tab by mouth daily. 30 Tab 1 07/12/2011 09/19/2011 trazodone (DESYREL) 100 mg tabletIndications:Lyubov lgia and myositis,Arthropathy Take 2 Tabs by mouth. Take 1-2 tabs at bedtime for sleep as needed 60 Tab 1 05/31/2011 11/18/2011 zafirlukast (ACCOLATE) 20 mg tabletIndications:Ast hma Take 1 Tab by mouth 2 times daily. 30 Tab 6 01/14/2011 09/19/2011 documented as of this encounter Discharge Disposition Disposition Code Departure Means Destination Home or Self [facility] documented in this encounter Plan of Treatment Not on file documented as of this encounter Visit Diagnoses Not on filedocumented in this encounter Care Teams Director Of Marketing Operations Relationship Specialty Start Date End Date Remedios Mehta MD [address] [place] [phone] PCP - General 02/19/09 01/04/15 documented as of this encounter
--- OUTSIDE RECORDS SUMMARY | 2024-06-24 02:22 | XMS_ITS | Encounter Summary ---
Author Organization [facility] Address [address] [place] [address] Care Team Providers Care Aeronautical Products Sales Engineer Name Role Phone Remedios Mehta MD Primary Care Provider [phone] [phone] Reason for Visit * Reason Onset Date Comments Returning Call 01/11/2012 Encounter Details Date Type Department Care Team (Late st Contact Info) Description 01/11/[address] [address] Poly Miramontes LPN Returning Call Social History Tobacco Use Types [...] encounter Miscellaneous Notes * Telephone Encounter - Manasa Luciano PA - 01/11/2012 1422 EDT Letter written for return to work * Telephone Encounter - Poly Arias LPN - 01/11/2012 1016 EDT Patient received your message stating no fracture in the joint. Now wants to know if she can returnto work. If so will need a letter allowing her to do so. documented in this encounter Plan of Treatment Not on file documented as of this encounter Visit Diagnoses Not on filedocumented in this encounter Care Teams Aeronautical Products Sales Engineer Relationship Specialty Start Date End Date Remedios Mehta MD [address] [place] [phone] PCP - General 02/19/09 01/04/15 documented as of this encounter
--- OUTSIDE RECORDS SUMMARY | 2024-06-24 02:22 | XMS_ITS | Encounter Summary ---
Author Organization [facility] Address [address] [place] [address] Care Team Providers Care Hot Mill Shearer Name Role Phone Remedios Mehta MD Primary Care Provider [phone] [phone] Encounter Details Date Type Department Care Team (Latest Contact Info) Description 08/16/2011 - 08/16/2011 23:[address] [facility] Endoscopy Outpatient [address] [place] [address] David Pedersen MD Discharge Disposition: Home or Self Care Social [...] Sign Reading Time Taken Comments Blood Pressure 103/65 08/16/2011 1556 EDT Pulse 61 08/16/2011 1556 EDT Temperature 36.1 ??C (97 ??F) 08/16/2011 1359 EDT Respiratory Rate 16 08/16/2011 1556 EDT Oxygen Saturation 100% 08/16/2011 1556 EDT Inhaled Oxygen Concentration - - Weight 94.8 kg (209 lb) 08/16/2011 1336 EDT Height 152.4 cm (5') 08/16/2011 1336 EDT Body Mass Index 40.82 08/16/2011 1336 EDT documented in this encounter Functional Status [...] mg by mouth 2 times daily. 08/01/2012 citalopram (CELEXA) 20 mg tabletIndications:Dep ression, major Take 1 Tab by mouth 2 times daily. 20 Tab 0 08/13/2011 08/31/2011 duloxetine (CYMBALTA) 20 mg capsuleIndications:De pression, major Take 1 Cap by mouth 2 times daily. 60 Cap 1 08/13/2011 08/31/2011 fluticasone (FLONASE) 50 mcg/Actuation nasal spray 1 [place] by Nasal route daily. 1 Bottle 5 03/17/2011 07/16/2012 hydrocodone-acetamino phen (LORTAB;VICODIN) 5-500 mg per tabletIndications:Art hritis Take 1 Tab by mouth every 6 hours as needed for Pain. 84 Tab 1 06/14/2011 08/19/2011 hydroxychloroquine (PLAQUENIL) 200 mg tabletIndications:Art hropathy Take [...] mouth daily. 30 Tab 1 07/12/2011 09/19/2011 PEG 3350-Electrolytes (GOLYTELY) Take 4 L by mouth. Instructions mailed once procedure scheduled. Questions: [facility] [phone] or GI Doctor's Office. 4 L 0 07/06/2011 08/31/2011 trazodone (DESYREL) 100 mg tabletIndications:Lyubov lgia and myositis,Arthropathy Take 2 Tabs by mouth. Take 1-2 tabs at bedtime for sleep as needed 60 Tab 1 05/31/2011 11/18/2011 zafirlukast (ACCOLATE) 20 mg tabletIndications:Ast hma Take 1 Tab by mouth 2 times daily. 30 Tab 6 01/14/2011 09/19/2011 documented as of this encounter Discharge Disposition Disposition Code Departure Means Destination Home or Self Half-Way documented in this encounter H&P Notes * David Pedersen MD - 08/16/2011 1411 EDT Sedation for Procedure History & Physical Date: 08/16/2011 Time: 14:11 Location: 4 Endo Planned Procedure: Colonoscopy Chief Complaint/Indications for Procedure: Average-risk screening colonoscopy. History Previous Complication with Sedation and/or Anesthesia? Yes (respiratory depression with narcotics. Propofol [place] in 04) Allergies: Allergies Allergen Reactions ??? Latex, Natural Rubber Hives ??? Aspirin Shortness Of Breath ??? Chocolate Flavor Hives Anything with chocolate gives rash ??? Codeine Shortness Of Breath ??? Egg/Poultry Hives ??? Penicillins Shortness Of Breath ??? Sulfa (Sulfonamide Antibiotics) Hives ??? Soy Constipation ??? Wheat Containing Prod Constipation Current Medications: (Not in a hospital admission) Past Medical History: Past Medical History Diagnosis Date ??? Fibromyalgia ??? Obesity ??? Asthma ??? Depression ??? Anxiety ??? GERD (gastroesophageal reflux disease) ??? Fibromyalgia ??? confirmed 1979,1982 2 vaginal deliveries ??? Lung disease ??? Complication of anesthesia respiratory ??? IBS (irritable bowel syndrome) ??? Hypertension Social History: Past Surgical History Procedure Date ??? Appendectomy ??? Hernia repair ??? Carpal tunnel release 22 years ago right endoscopic by dr. Hamilton ??? Joint replacement 04/15/2010 Right TKR ([place]) History Substance Use Topics ??? Smoking status: Former Smoker ??? Smokeless tobacco: Never Used Comment: quit 20+ yr ago ??? Alcohol Use: Yes very occasional Family History: Family History Problem Relation Age of Onset ??? Diabetes Mother ??? High Blood Pressure Father ??? High Cholesterol Father Review of Systems as pertinent: Physical Exam Vital Signs: BP 118/67 Pulse 57 Temp 36.1 ??C (97 ??F) Resp 16 Ht 152.4 cm (60) Wt 94.802 kg (209 lb) BMI 40.82 kg/m2 SpO2 98% Heart Examination: Cardiac Regularity: Regular Respiratory Examination: Respiratory Pattern: Regular Breath Sounds Right: Clear Breath Sounds Left: Clear Additional physical exam related to the proposed procedure, patient activity, disease state and treatment as pertinent: Assessment Previous complications with sedation or anesthesia?: Yes (respiratory depression with narcotics. Propofol [place] in 04) Airway Concerns: None Anesthesia Classification: ASA 3 Fasting Time: Time of last liquid intake: 1230 Date of Last Liquid Intake: 08/16/11 Date of last solid intake: 08/14/11 Patient Appropriate Candidate for Planned Sedation?: Yes documented in this encounter Procedure Notes * Acid Dipper, Scan - 08/18/2011 0902 EDTAssociated Order(s): ORDERS - SCANNED * Acid Dipper, Scan - 08/17/2011 0801 EDTAssociated Order(s): PROCEDURE REPORTS - SCANNED documented in this encounter OR Notes * Anesthesia Preprocedure Evaluation - Acid Dipper, Scan - 08/18/2011 0911 EDT documented in this encounter Miscellaneous Notes * Scanned Note-Null - Acid Dipper, Scan - 08/18/2011 0911 EDT * Scanned Note-Null - Acid Dipper, Scan - 08/18/2011 0816 EDT documented in this encounter Plan of Treatment Not on file documented as of this encounter Procedures Procedure Name Priority Date/Time Associated Diagnosis Comments ORDERS - SCANNED 08/18/2011 9:02 EDT PROCEDURE REPORTS - SCANNED 08/17/2011 8:01 EDT documented in this encounter Results * ORDERS - SCANNED (08/18/2011 9:02 EDT) 08/18/2011 9:02 EDT Narrative Transcriptions Acid Dipper, Scan - 08/18/2011 9:02 EDT Scan Acid Dipper ADMISSION ORDERABLES * PROCEDURE REPORTS - SCANNED (08/17/2011 8:01 EDT) 08/17/2011 8:01 EDT Narrative Transcriptions Acid Dipper, Scan - 08/17/2011 8:01 EDT Scan Acid Dipper PROCEDURE/MINOR SURG ICAL ORDERABLES documented in this encounter Visit Diagnoses Not on filedocumented in this encounter Administered Medications Inactive Administered Medications - up to 3 most recent administrations Medication Order MAR Action Action Date Dose Rate Site lactated ringers (LR) infusion 30 mL/hr, intravenous, CONTINUOUS, Starting on Mon08/16/11 at 1400, Until Shirley 08/18/11 at 0410, Routine, Preprocedure New Bag 08/16/2011 13:56 EDT 30 mL/hr 30 mL/hr documented in this encounter Orders Medications Ordered That Max ht Not Have Been Administered Count Last Ordered Date First Ordered Date lactated ringers (LR) infusion 1 08/16/2011 Discharge Count Last Ordered Date First Orde red Date DISCHARGE PATIENT 1 08/16/2011 documented in this encounter Care Teams Hot Mill Shearer Relationship Specialty Start Date End Date Remedios Mehta MD [address] [place] [phone] PCP - General 02/19/09 01/04/15 documented as of this encounter
--- OUTSIDE RECORDS SUMMARY | 2024-06-24 02:22 | XMS_ITS | Encounter Summary ---
Author Organization [facility] Address [address] [place] [address] Care Team Providers Care Flattening Machine Operator Name Role Phone Remedios Mehta MD Primary Care Provider [phone] [phone] Reason for Visit * Reason Onset Date Comments Medications Refill 06/08/2011 Encounter Details Date Type Department Care Team (Late st Contact Info) Description 06/08/[address] [address] Remedios Mehta MD [address] [place] [phone] Medications Refill Social History Tobacco Use [...] End Da te loratadine (CLARITIN) 10 mg tabletIndications:Allergic rhinitis Take 1 Tab by mouth daily. 90 Tab 1 06/08/2011 06/07/2012 citalopram (CELEXA) 20 mg tabletIndications:Depressi on, major Take 3 Tabs by mouth daily. 270 Each 1 06/08/2011 08/13/2011 documented in this encounter Plan of Treatment Not on file documented as of this encounter Visit Diagnoses Diagnosis Depression, major Major depressive disorder, single episode, unspecified Allergic rhinitis Allergic rhinitis, cause unspecified documented in this encounter Discontinued Medications Medication Sig Discontinue Reason Start Date End Da te citalopram (CELEXA) 20 mg tabletIndications:Depress ion, major Take 3 Tabs by mouth daily. Reorder 02/17/2011 06/08/2011 loratadine (CLARITIN) 10 mg tabletIndications:Allergi c rhinitis Take 1 Tab by mouth daily. Reorder 02/17/2010 06/08/2011 documented as of this encounter Care Teams Flattening Machine Operator Relationship Specialty Start Date End Date Remedios Mehta MD [address] [place] [phone] PCP - General 02/19/09 01/04/15 documented as of this encounter
--- OUTSIDE RECORDS SUMMARY | 2024-06-24 02:22 | XMS_ITS | Encounter Summary ---
Author Organization [facility] Address [address] [place] [address] Care Team Providers Care Radar Tester Name Role Phone Remedios Mehta MD Primary Care Provider [phone] [phone] Reason for Visit * Reason Onset Date Comments Medications Refill 08/19/2011 Encounter Details Date Type Department Care Team (Late st Contact Info) Description 08/19/[address] [address] Remedios Mehta MD [address] [place] [phone] Medications Refill Social History Tobacco Use [...] for Pain. 84 Tab 1 08/19/2011 10/28/2011 documented in this encounter Miscellaneous Notes * Telephone Encounter - Arlen Pollock - 08/19/2011 1042 EDT Last refill date 16. Last visit date 9.7 Next visit date 11.2 When will they be out? documented in this encounter Plan of Treatment Not on file documented as of this encounter Visit Diagnoses Diagnosis Arthritis- Primary Arthropathy, unspecified, site unspecified documented in this encounter Discontinued Medications Medication Sig Discontinue Reason Start Date End Da te hydrocodone-acetaminophe n (LORTAB;VICODIN) 5-500 mg per tabletIndications:Arthri tis Take 1 Tab by mouth every 6 hours as needed for Pain. Reorder 06/14/2011 08/19/2011 documented as of this encounter Care Teams Radar Tester Relationship Specialty Start Date End Date Remedios Mehta MD [address] [place] [phone] PCP - General 02/19/09 01/04/15 documented as of this encounter
--- OUTSIDE RECORDS SUMMARY | 2024-06-24 02:22 | XMS_ITS | Encounter Summary ---
Author Organization [facility] Address [address] [place] [address] Care Team Providers Care Visual Coordinator Name Role Phone Remedios Mehta MD Primary Care Provider [phone] Reason for Visit * Reason Comments Fall fell last night on c ement, now having right hand, right face, back and shoulder pain and right leg pain Encounter Details Date Type Department Care Team (Late st Contact Info) Description 01/04/2012 11:30 EST Office Visit [facility] [address] [id number] Manasa Luciano PA-C [address] [facility] [address] [place], [place] [id number] Multiple contusions (Primary Dx) Social History Tobacco Use Types [...] Sign Reading Time Taken Comments Blood Pressure 102/76 01/04/2012 1145 EST Pulse 60 01/04/2012 1145 EST Temperature - - Respiratory Rate - - Oxygen Saturation - - Inhaled Oxygen Concentration - - Weight 97.5 kg (215 lb) 01/04/2012 1145 EST Height 152.4 cm (5') 01/04/2012 1145 EST Body Mass Index 41.99 01/04/2012 1145 EST documented in this encounter Functional Status Cognitive Status Response Date of Assessm ent Because of a physical, menta l, or emotional condition, do you have serious difficulty concentrating, remembering, or making decisions? (5 years old or older) Yes 04/15/2010 documented as of this encounter Ordered Prescriptions Prescription Sig Dispensed Refills Start Date End Da te cyclobenzaprine (FLEXERIL) 10 mg tabletIndications:Multiple contusions Take 1 Tab by mouth every 8 hours as needed for Muscle Spasms. 30 Tab 0 01/04/2012 03/05/2012 cyclobenzaprine (FLEXERIL) 10 mg tabletIndications:Multiple contusions Take 1 Tab by mouth every 8 hours as needed for Muscle Spasms. 30 Tab 0 01/04/2012 01/04/2012 documented in this encounter Progress Notes * Manasa Luciano PA - 01/05/2012 1445 ESTAddended by: MANASA LUCIANO on: 01/05/2012 14:45 Modules accepted: Orders * Manasa Luciano PA - 01/05/2012 1442 ESTQuick Note: Can you let her know these results and that I'll order f/u films to be done in 7-10 days * Manasa Luciano PA - 01/04/2012 1500 EST Subjective: Patient ID: Cherelle Husain is an 51 y.o. female. Chief Complaint Patient presents with ??? Fall fell last night on cement, now having right hand, right face, back and shoulder pain and right leg pain HPI Last night, the patient slipped on the ice and fell while she was at a gas station. She landed on her right side. Believes her knee was the first thing to hit, but she scraped her palms and also has soreness in her right wrist, shoulder and cheek. She is frustrated because no one came to her assistance. She applied some heat last night and used some Aleve. She is concerned because she had a knee replacement a couple of years ago, the knee seems swollen; her wrist and hand seem swollen. She has troubles with arthritis and fibromyalgia pain anyway. She works upstairs and there is no elevator inher building. 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 She will not likely go into work today or tomorrow. She has cleaned the abrasion on her hand and applied a bandage. Does not tolerate the application of ice and prefers heat; is using a cane today. Patient Active Problem List Diagnoses ??? Myalgia [...] ??? Thrombophlebitis ??? Hypercoagulation syndrome ??? Fibromyalgia Past Medical History Diagnosis Date ??? Fibromyalgia ??? Obesity ??? Asthma ??? Depression ??? Anxiety ??? GERD (gastroesophageal reflux disease) ??? Fibromyalgia ??? confirmed 1979,1982 2 vaginal deliveries ??? Lung disease ??? Complication of anesthesia respiratory ??? IBS (irritable bowel syndrome) ??? Hypertension Current Outpatient Prescriptions on File Prior to Visit Medication Sig Dispense Refill ??? hydroxychloroquine (PLAQUENIL) 200 mg tablet Take 1 Tab by mouth 2 times daily. 180 Tab 1 ??? trazodone (DESYREL) 100 mg tablet Take 2 Tabs by mouth. Take 1-2 tabs at bedtime for sleep as needed 56 Tab 1 ??? pantoprazole (PROTONIX) 40 mg tablet Take 1 Tab by mouth daily. 90 Tab 1 ??? methotrexate 2.5 mg tablet Take 4 Tabs by mouth once a week. 16 Each 3 ??? hydrocodone-acetaminophen (LORTAB;VICODIN) 5-500 mg per tablet Take 1 Tab by mouth every 6 hours as needed for Pain. 84 Tab 1 ??? zafirlukast (ACCOLATE) 20 mg tablet Take 1 Tab by mouth 2 times daily. 60 Tab 5 ??? duloxetine (CYMBALTA) 20 mg capsule Take 1 Cap by mouth 2 times daily. 60 Cap 4 ??? lovastatin (MEVACOR) 10 mg tablet Take 1 Tab by mouth daily. 90 Tab 4 ??? loratadine (CLARITIN) 10 mg tablet Take 1 Tab by mouth daily. 90 Tab 1 ??? metoprolol (LOPRESSOR) 25 mg tablet Take 1 Tab by mouth 2 times daily. 180 Tab 4 ??? fluticasone (FLONASE) 50 mcg/Actuation nasal spray 1 [place] by Nasal route daily. 1 Bottle 5 [...] area(s) as directed. 1 Tube 1 ??? lorazepam (ATIVAN) 0.5 mg Tab Take 0.5 mg by mouth as needed. ??? lubiprostone (AMITIZA) 24 mcg capsule Take [...] occasional ROS - See HPI Objective: BP 102/76 Pulse 60 Ht 152.4 cm (60) Wt 97.523 kg (215 lb) BMI 41.99 kg/m2 Physical Exam Nursing note and vitals reviewed. Constitutional: She is oriented to person, place, and time. She appears well- developed and well-nourished. No distress. Moves slowly and is using a cane Musculoskeletal: Right cheek tender but no swelling or bruising noted Right shoulder and upper trapezius tender Right lateral neck tender Right medial forearm tender, no ecchymosis, non tender over the olecranon process Right wrist tender mainly on the volar aspect, no ecchymosis, good ROM, no snuff box tenderness Fingers are puffy and ring is tight Right knee tender with decreased flexion No ecchymosis, no crepitus Small abrasion over the right 5th MCP area, bandage in place, no erythema or drainage. Neurological: She is alert and oriented to person, place, and time. Psychiatric: She has a normal mood and affect. Her behavior is normal. Assessment: Encounter Diagnosis Name Primary? Multiple contusions Yes to right hand/wrist, right shoulder, right knee Plan: Cherelle was seen today for fall. Diagnoses and associated orders for this visit: Multiple contusions - KNEES 3 VIEWS - cyclobenzaprine (FLEXERIL) 10 mg tablet; Take 1 Tab by mouth every 8 hours as needed for Muscle Spasms. Ice/heat Easy with activities Continue with aleve and usual pain meds Will likely take a day or two off work to rest/recover F/u for any changes Patient Education Topic: as above Method: Verbal Taught to: Patient Barriers: None Outcomes: verbalized understanding Signature:DT documented in this encounter Plan of Treatment Not on file documented as of this encounter Procedures Procedure Name Priority Date/Time Associated Diagnosis Comments KNEE 4 OR MORE VIEWS 01/10/2012 15:51 EDT KNEES 3 VIEWS Routine 01/04/2012 13:01 EST Multiple contusions documented in this encounter Results * KNEE 4 OR MORE VIEWS (01/10/2012 15:51 EDT) Anatomical Region Laterality Modality Other 01/10/2012 15:5 1 EDT 01/10/2012 16:58 EDT Narrative 01/10/2012 16:58 EDT Right KNEE 4 OR MORE VIEWS ??Jan 10, 2012 03:51:00 PM Signs and Symptoms/Comments: ??924.9-CONTUSION OF UNSPECIFIED RHVO-SDV-0-CM f/u films s/p fall on right knee with ? non displaced fx on original film changed to 4 views per Jaimee at office-jm Comparison: 01/04/2012, 08/15/2011 Findings: Four views of the right knee demonstrate prior total knee arthroplasty. The femoral and tibial prostheses are in satisfactory position without evidence of hardware loosening or failure. The patella has been resurfaced. Subtle irregularities at the superior pole of the patella and along the anterior cortex of the proximal tibia, only seen on the crosstable lateral view, are unchanged from 6 days prior. No periosteal reaction is present. A small suprapatellar joint effusion is present. Impression: 1. Right total knee arthroplasty without evidence of hardware failure. 2. Subtle irregularities of the superior patella and anterior proximal tibia, unchanged from prior examinations. No compelling findings of periprosthetic fracture. 3. Persistent small joint effusion. I have personally reviewed the images and the above interpretation and agree with the findings. Procedure Note Chance Bui MD - 01/10/2012 Right KNEE 4 OR MORE VIEWS Jan 10, 2012 03:51:00 PM Signs and Symptoms/Comments: 924.9-CONTUSION OF UNSPECIFIED XPDP-TRC-3-CM f/u films s/p fall on right knee with ? non displaced fx on original film changed to 4 views per Jaimee at office-jml Comparison: 01/04/2012, 08/15/2011 Findings: Four views of the right knee demonstrate prior total knee arthroplasty. The femoral and tibial prostheses are in satisfactory position without evidence of hardware loosening or failure. The patella has been resurfaced. Subtle irregularities at the superior pole of the patella and along the anterior cortex of the proximal tibia, only seen on the crosstable lateral view, are unchanged from 6 days prior. No periosteal reaction is present. A small suprapatellar joint effusion is present. Impression: 1. Right total knee arthroplasty without evidence of hardware failure. 2. Subtle irregularities of the superior patella and anterior proximal tibia, unchanged from prior examinations. No compelling findings of periprosthetic fracture. 3. Persistent small joint effusion. I have personally reviewed the images and the above interpretation and agree with the findings. Manasa Luciano PA-C IM DIAGNOS TIC IMAGING ORDERABLES * KNEES 3 VIEWS (01/04/2012 13:01 EST) Anatomical Region Laterality Modality Other 01/04/2012 13:0 1 EST 01/05/2012 10:20 EST Narrative 01/05/2012 10:20 EST Right knee January 04, 2012 History: History of total knee replacement, status post fall, pain Three views were obtained and compared to prior films dated August 15, 2011 There is a small joint effusion. The prosthesis is in place, there is no evidence of hardware failure. On the lateral view there are 2 subtle lucencies, one in the superior aspect of the patella, and one in the anterior aspect of the proximal tibia, these were not seen on the prior exam and may represent nondisplaced fractures. Followup films would be helpful. No other abnormality is seen. Procedure Note 01/05/2012 Right knee January 04, 2012 History: History of total knee replacement, status post fall, pain Three views were obtained and compared to prior films dated August 15, 2011 There is a small joint effusion. The prosthesis is in place, there is no evidence of hardware failure. On the lateral view there are 2 subtle lucencies, one in the superior aspect of the patella, and one in the anterior aspect of the proximal tibia, these were not seen on the prior exam and may represent nondisplaced fractures. Followup films would be helpful. No other abnormality is seen. Manasa Luciano PA-C IMG DIAGNOS TIC IMAGING ORDERABLES documented in this encounter Visit Diagnoses Diagnosis Multiple contusions- Primary Contusion of unspecified site documented in this encounter Discontinued Medications Medication Sig Discontinue Reason Start Date End Da te cyclobenzaprine (FLEXERIL) 10 mg tabletIndications:Multip le contusions Take 1 Tab by mouth every 8 hours as needed for Muscle Spasms. Reorder 01/04/2012 01/04/2012 documented as of this encounter Care Teams Visual Coordinator Relationship Specialty Start Date End Date Remedios Mehta MD [address] [place] [phone] PCP - General 02/19/09 01/04/15 documented as of this encounter
--- OUTSIDE RECORDS SUMMARY | 2024-06-24 02:22 | XMS_ITS | Encounter Summary ---
Author Organization [facility] Address [address] [place] [address] Care Team Providers Care Manager Proposal Name Role Phone Remedios Mehta MD Primary Care Provider [phone] Encounter Details Date Type Department Care Team (Latest Contact Info) Description 03/28/2012 10:23 EDT Hospital Encounter [address] [address] Remedios Mehta MD [address] [place] [phone] Discharge Disposition: Home or Self Care [...] fluticasone (FLONASE) 50 mcg/Actuation nasal spray 1 [place] by Nasal route daily. 1 Bottle 5 [...] or Self Half-Way documented in this encounter Plan of Treatment Not on file documented as of this encounter Visit Diagnoses Not on filedocumented in this encounter Care Teams Manager Proposal Relationship Specialty Start Date End Date Remedios Mehta MD [address] [place] [phone] PCP - General 02/19/09 01/04/15 documented as of this encounter
--- OUTSIDE RECORDS SUMMARY | 2024-06-24 02:22 | XMS_ITS | Encounter Summary ---
Author Organization [facility] Address [address] [place] [address] Care Team Providers Care Business Data Analyst Name Role Phone Remedios Mehta MD Primary Care Provider [phone] Encounter Details Date Type Department Care Team (Late st Contact Info) Description 09/14/2011 Results Only [facility] [address] [address] Remedios Mehta MD [address] [place] [phone] Social History Tobacco Use Types Packs/Day [...] Associated Diagnosis Comments MULTIPLE DOC ORDERS Routine 09/14/2011 1 0:30 EST documented in this encounter Results * MULTIPLE DOC ORDERS (09/14/2011 10:30 EST) Multiple Doc Orders This report contains lab results ordered [facility] Comment: by another provider which were collected and processed simultaneously with the orders you requested. If you have any questions, please call Customer Service at [phone]. 09/14/2011 10:3 0 EST 09/14/2011 11:29 EST Remedios Mehta MD CHEMISTRY & BLOOD GAS ORDERABLES [facility] [address] [place] [address] documented in this encounter Visit Diagnoses Not on filedocumented in this encounter Care Teams Business Data Analyst Relationship Specialty Start Date End Date Remedios Mehta MD [address] [place] [phone] PCP - General 02/19/09 01/04/15 documented as of this encounter
--- OUTSIDE RECORDS SUMMARY | 2024-06-24 02:22 | XMS_ITS | Encounter Summary ---
Author Organization [facility] Address [address] [place] [address] Care Team Providers Care Home Security Alarm Installer Name Role Phone Remedios Mehta MD Primary Care Provider [phone] Encounter Details Date Type Department Care Team (Late st Contact Info) Description 08/11/2011 Orders Only [facility] Total Joint Program - [address] [place], [place] [phone] Yonathan Moreland MD Knee pain (Primary Dx) [...] Comments KNEE 1 OR 2 VIEWS Routine 08/15/2011 10: 32 EDT Knee pain KNEE 1 OR 2 VIEWS Routine 08/15/2011 10: 32 EDT Knee pain documented in this encounter Results * KNEE 1 OR 2 VIEWS (08/15/2011 10:32 EDT) Anatomical Region Laterality Modality Other 08/15/2011 10:3 2 EDT 08/15/2011 10:55 EDT Narrative 08/15/2011 10:55 EDT Two views of the right knee and one view of the left knee dated ??Aug 15, 2011 10:32:54 AM Clinical history: 719.46-PAIN IN JOINT, LOWER [id number]-CM right total knee replacement due to osteoarthritis Comparison: Knee radiographs dated October 14, 2010. Findings: Right knee: AP and lateral weight-bearing views of the right knee were obtained in this patient status post total right knee arthroplasty. The femoral and tibial components of the prosthesis appear well positioned without evidence of failure or loosening. The posterior resurfacing component of the patella also appears intact. The overall alignment of the right knee is satisfactory. No acute fracture seen. No joint effusion is identified. Mineralization is age-appropriate. Soft tissues are grossly unremarkable. Left knee: AP weight-bearing view of the left knee shows no acute osseous abnormality. The lateral view limits the assessment for joint effusion and the evaluation of the patellofemoral compartment. Mild joint space narrowing seen on the medial femorotibial compartment. The joint space in the lateral femorotibial compartment appears preserved. Small marginal osteophyte formation seen off the periphery of the lateral and a lesser extent medial tibial plateaus. There is spurring of the tibial spines. Mineralization is age-appropriate. Soft tissues are grossly unremarkable. Procedure Note 08/15/2011 Two views of the right knee and one view of the left knee dated Aug 15, 2011 10:32:54 AM Clinical history: 719.46-PAIN IN JOINT, LOWER [id number]-CM right total knee replacement due to osteoarthritis Comparison: Knee radiographs dated October 14, 2010. Findings: Right knee: AP and lateral weight-bearing views of the right knee were obtained in this patient status post total right knee arthroplasty. The femoral and tibial components of the prosthesis appear well positioned without evidence of failure or loosening. The posterior resurfacing component of the patella also appears intact. The overall alignment of the right knee is satisfactory. No acute fracture seen. No joint effusion is identified. Mineralization is age-appropriate. Soft tissues are grossly unremarkable. Left knee: AP weight-bearing view of the left knee shows no acute osseous abnormality. The lateral view limits the assessment for joint effusion and the evaluation of the patellofemoral compartment. Mild joint space narrowing seen on the medial femorotibial compartment. The joint space in the lateral femorotibial compartment appears preserved. Small marginal osteophyte formation seen off the periphery of the lateral and a lesser extent medial tibial plateaus. There is spurring of the tibial spines. Mineralization is age-appropriate. Soft tissues are grossly unremarkable. Yonathan Moreland MD [facility] DIAGNOSTIC IMAGING ORDERABLES * KNEE 1 OR 2 VIEWS (08/15/2011 10:32 EDT) Anatomical Region Laterality Modality Other 08/15/2011 10:3 2 EDT 08/15/2011 10:55 EDT Narrative 08/15/2011 10:55 EDT Two views of the right knee and one view of the left knee dated ??Aug 15, 2011 10:32:54 AM Clinical history: 719.46-PAIN IN JOINT, LOWER [id number]-CM right total knee replacement due to osteoarthritis Comparison: Knee radiographs dated October 14, 2010. Findings: Right knee: AP and lateral weight-bearing views of the right knee were obtained in this patient status post total right knee arthroplasty. The femoral and tibial components of the prosthesis appear well positioned without evidence of failure or loosening. The posterior resurfacing component of the patella also appears intact. The overall alignment of the right knee is satisfactory. No acute fracture seen. No joint effusion is identified. Mineralization is age-appropriate. Soft tissues are grossly unremarkable. Left knee: AP weight-bearing view of the left knee shows no acute osseous abnormality. The lateral view limits the assessment for joint effusion and the evaluation of the patellofemoral compartment. Mild joint space narrowing seen on the medial femorotibial compartment. The joint space in the lateral femorotibial compartment appears preserved. Small marginal osteophyte formation seen off the periphery of the lateral and a lesser extent medial tibial plateaus. There is spurring of the tibial spines. Mineralization is age-appropriate. Soft tissues are grossly unremarkable. Procedure Note 08/15/2011 Two views of the right knee and one view of the left knee dated Aug 15, 2011 10:32:54 AM Clinical history: 719.46-PAIN IN JOINT, LOWER [id number]-ZBF-2-CM right total knee replacement due to osteoarthritis Comparison: Knee radiographs dated October 14, 2010. Findings: Right knee: AP and lateral weight-bearing views of the right knee were obtained in this patient status post total right knee arthroplasty. The femoral and tibial components of the prosthesis appear well positioned without evidence of failure or loosening. The posterior resurfacing component of the patella also appears intact. The overall alignment of the right knee is satisfactory. No acute fracture seen. No joint effusion is identified. Mineralization is age-appropriate. Soft tissues are grossly unremarkable. Left knee: AP weight-bearing view of the left knee shows no acute osseous abnormality. The lateral view limits the assessment for joint effusion and the evaluation of the patellofemoral compartment. Mild joint space narrowing seen on the medial femorotibial compartment. The joint space in the lateral femorotibial compartment appears preserved. Small marginal osteophyte formation seen off the periphery of the lateral and a lesser extent medial tibial plateaus. There is spurring of the tibial spines. Mineralization is age-appropriate. Soft tissues are grossly unremarkable. Yonathan Moreland MD IMG DIAGNOSTIC IMAGING ORDERABLES documented in this encounter Visit Diagnoses Diagnosis Knee pain- Primary Pain in joint, lower leg documented in this encounter Care Teams Home Security Alarm Installer Relationship Specialty Start Date End Date Remedios Mehta MD [address] [place] [phone] PCP - General 02/19/09 01/04/15 documented as of this encounter
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
--- OUTSIDE RECORDS SUMMARY | 2024-06-24 02:22 | XMS_ITS | Encounter Summary ---
Author Organization [facility] Address [address] [place] [address] Care Team Providers Care Zigzag Topstitcher Name Role Phone Remedios Mehta MD Primary Care Provider [phone] Reason for Visit * Reason Comments Follow-up s/p right TKR 6.17.1 0 Encounter Details Date Type Department Care Team (Late st Contact Info) Description 08/15/2011 9:40 EDT Office Visit [facility] - [address] [place], [place] [phone] Yonathan Moreland MD OA (osteoarthritis) of knee (Primary Dx) Social History Tobacco Use Types [...] as of this encounter Progress Notes * Christian Monk - 08/19/2011 0941 EDT [facility] PROGRESS/FOLLOWUP NOTE - 08/15/2011 PROBLEM: Status post right total knee replacement 04/15/2010. SUBJECTIVE: Ms Husain comes in today with complaints of right knee pain status post total knee arthroplasty. She states that she has been having this pain for quite some time. She has seen Dr Morelandin the past, but is curious as to why it continues to hurt. She does notice that her knee continuesto be stiff. She also has some warm feeling in the herman of her right knee. Her symptoms are worse with weightbearing and better with rest or nonweightbearing except if she sits with her knee flexed. She does have some difficulty with stairs, but is able to do a reciprocal gait pattern. She is taking trazodone and Vicodin, not just for her knee pain but also for fibromyalgia. She is unsure of exactly what is going on with her right herman, but does state that occasionally it feels warm. She has been recently diagnosed with psoriatic arthritis and is seeing Dr Callejas in rheumatology for this. Inregards to her left knee, this is made worse with stairs as well as walking or sitting with her knee flexed. The pain is located primarily anteriorly. She has been doing home physical therapy for this with limited results. The last formal PT she had was in April. OBJECTIVE: On exam, she is well appearing, in no acute distress. Mood and affect are appropriate throughout the exam. Her breathing is nonlabored. Her face is symmetric. She ambulates with a nonantalgic gait pattern and rises smoothly from a chair. Right knee range of motion is 0 to 85, and left knee is 0 to 100 degrees. Both are stable with varus, valgus stress and AP stress. She has significanttenderness throughout the medial and lateral joint line, more on the right than on the left. She has significant patellofemoral tenderness of the left knee. She does not have a patellar grind test. She has 5/5 EHL, tib ant and gastroc, peroneal, knee flexion and extension strength. She has 2+ DP and PT pulses and sensation is intact superficial peroneal nerve, deep peroneal, tibial, sural and saphenous nerves. Hip and ankle range of motion are within functional limits. IMAGING: X-rays of the right knee were obtained today. This was independently interpreted by me Yogesh Moreland. Left knee x-rays from December 2009 were reviewed. Today's x-rays show the right knee with a well-seated and well-aligned prosthesis with no evidence of osteolysis and no progressive lucent lines. The left knee films from December 2009 included AP and sunrise views. [place] views show no significant patellofemoral arthritis. AP views including the bilateral weightbearing AP from today show minimal joint space narrowing in the medial compartment but no significant osteophyte formation. Overall, her left knee looks well preserved. ASSESSMENT AND PLAN: She is now approximately 14 months status post right total knee arthroplasty. She continues to have knee pain. A big portion of this is likely soft tissue and related to the stiffness that she continues to have in her knee. We have discussed this with her in the past and would like her to continue her exercises, but this may be something that does not get 100% better. She understands this and will continue to work with her exercises as able to. In regards to left knee, it seems to be somewhat patellofemoral in origin, although she does not have significant radiographic changes. We did discuss options of treatment including continued therapy, which she will do on her own, as well as potential for corticosteroid or Synvisc injections. She will continue with her current treatment at this point. She did recently start methotrexate for her psoriatic arthritis, and we will see if that has any effect on her left knee pain. We will schedule her for a 3-year followup with x-rays of the right knee. Should she continue to have symptoms in her left knee, then she can call us back for an appointment and potentially a corticosteroid injection at that point. If she responds well to a corticosteroid injection, then we would potentially progress on to discuss supplementation. All of her questions were answered. She is pleased with the plan. We will see her back in 3 years with x-rays of her right knee. This patient was seen, examined and discussed with Dr Moreland. I saw and examined the patient with the resident/fellow. I agree with the findings and plan of caredocumented in the resident's/fellow's note. Electronically Signed by Yonathan Moreland MD 08/22/2011 22:13 Christian Monk MD Yonathan Moreland MD - Christian Monk MD - Job ID: SM Doc ID: [id number] Ext Doc ID: [id number] cc: * Christian Monk - 08/15/2011 1731 EDT This office note has been dictated. CHRISTIAN MONK MD documented in this encounter Plan of Treatment Not on file documented as of this encounter Visit Diagnoses Diagnosis OA (osteoarthritis) of knee- Primary Osteoarthrosis, unspecified whether generalized or localized, lower leg documented in this encounter Care Teams Zigzag Topstitcher Relationship Specialty Start Date End Date Remedios Mehta MD [address] [place], [place] [phone] PCP - General 02/19/09 01/04/15 documented as of this encounter
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
--- OUTSIDE RECORDS SUMMARY | 2024-06-24 02:22 | XMS_ITS | Encounter Summary ---
Author Organization [facility] Address [address] [place] [address] Care Team Providers Care It Service Delivery Manager Name Role Phone Remedios Mehta MD Primary Care Provider [phone] Reason for Visit * Reason Onset Date Comments Knee Injury 01/09/2012 questions Encounter Details Date Type Department Care Team (Late st Contact Info) Description 01/09/[address] [address] Remedios Mehta MD [address] [place] [phone] Knee Injury (questions) Social History Tobacco Use Types Packs/Day Years [...] Telephone Encounter - Nayeli Swift LPN - 01/10/2012 1023 EDT Patient was calling to clarify why she needed more xrays. Did not understand what non displaced fractures mean. She is going to go today to have the repeat xray, we will not be able to determine her limitations until results are back. I was supervised by Mago Vallecillo MD who was present and immediately available in the office suite. Nayeli Swift LPN 01/10/2012 10:27 * Telephone Encounter - Arlen Pollock - 01/09/2012 1457 EDT She wants to know her limitations as far as work. And what she can and cant do. Because of her knee. Right. Also she wants to know about the test she is having on Monday. documented in this encounter Plan of Treatment Not on file documented as of this encounter Visit Diagnoses Not on filedocumented in this encounter Care Teams It Service Delivery Manager Relationship Specialty Start Date End Date Remedios Mehta MD [address] [place] [phone] PCP - General 02/19/09 01/04/15 documented as of this encounter
--- OUTSIDE RECORDS SUMMARY | 2024-06-24 02:22 | XMS_ITS | Encounter Summary ---
Author Organization [facility] Address [address] [place] [address] Care Team Providers Care Horticultural Therapist Name Role Phone Remedios Mehta MD Primary Care Provider [phone] Encounter Details Date Type Department Care Team (Late st Contact Info) Description 08/19/[address] [address] Remedios Mehta MD [address] [place] [phone] Social History Tobacco Use Types Packs/Day [...] on filedocumented in this encounter Care Teams Horticultural Therapist Relationship Specialty Start Date End Date Remedios Mehta MD [address] [place] [phone] PCP - General 02/19/09 01/04/15 documented as of this encounter
--- OUTSIDE RECORDS SUMMARY | 2024-06-24 02:22 | XMS_ITS | Encounter Summary ---
Author Organization [facility] Address [address] [place] [address] Care Team Providers Care Nurse Ortho Name Role Phone Remedios Mehta MD Primary Care Provider + -[phone] Reason for Referral * Consult, Test and Treat (Routine/Next Available) - Closed Specialty Diagnoses / Procedures Referred By Joao proctor Referred To Contact Diagnoses Back pain Delia Perez PA [address] [place] [address] Referral ID Status Reason Start Date Expiration Date V isits Requested Visits Authorized [id number] Closed Specialty Services Required 04/16/2012 1 1 Question Answer Reason for Request: chronic low back pain * Consult (Routine/Next Available) - Closed Specialty Diagnoses / Procedures Referred By Joao proctor Referred To Contact Pain Medicine Diagnoses DDD (degenerative disc disease), cervical Delia Perez PA [address] [place] [address] [facility] [address] [place] [address] Referral ID Status Reason Start Date Expiration Date V isits Requested Visits Authorized [id number] Closed Specialty Services Required 04/16/2012 1 1 Question Answer Reason for Request: degenerative disc disease neck-ongoing pain Reason for Visit * Reason Onset Date Comments Fibromyalgia 03/19/2012 Arthritis 03/19/2012 Update 03/19/2012 03.05.2012 appt [facility] Encounter Details Date Type Department Care Team (Late st Contact Info) Description 03/19/2012 Telephone [facility] Rheumatology & Immunology - [address] [address] Delia Perez PA [address] [facility] [address] [place] [phone] Fibromyalgia; Arthritis; Update (03.05.2012 appt with [facility]) Social History Tobacco Use Types Packs/Day Years [...] Miscellaneous Notes * Telephone Encounter - Delia Perez PA - 04/16/2012 1127 EDT Called both phones numbers listed and left message for patient to call. Since no reply will mail patient her x-ray findings and place orders for physical therapy for her low back and pain clinic for her neck. (degenerative disc disease in her neck) If back pain is worsening, then we should order anMRI. * Telephone Encounter - Delia Perez PA - 04/13/2012 1409 EDT Left message for patient at [phone] for patient-(listed as her home number.) Her lumbar spine x-rays did not show any arthritis or degeneration, however her cervical spine doesshow degenerative disc disease. She would benefit from physical therapy for her back or pain clinicevaluation for neck. I need to talk to this patient to hear her describe her pain to see if neurontin may help or if she needs and MRI. * Telephone Encounter - Tiffanie Herrmann RN - 04/13/2012 1149 EDT I don't see that referral was ever made to pain clinic. Is this something you wanted us to follow up on? For pt's back pain? Also, what can we tell pt ab out X-rays done last month? She has called again for results. * Telephone Encounter - Leilani Moon - 04/13/2012 1143 EDT Patient is still looking for results of X-Rays done in February, She is also concerned that she has not received a call about the pain clinic. * Telephone Encounter - Delia Perez PA - 03/20/2012 0945 EDT Left message for patient. Do not see that she has tried either neurontin or flexeril per our records. Perhaps she would like to try either while she awaits her appointment. * Telephone Encounter - Robyn Nathan RN - 03/20/2012 0906 EDT Spoke with pt. She has not heard back with an appt for the pain clinic yet. Pt states that she is having a hard time walking because of her back pain. I advised her that all the labs came back normal. * Telephone Encounter - Larissa Rosales - 03/19/2012 0907 EDT Patient requesting a call back today. Per patient, was in on 5.7 to [facility]. Per patient, still not comfortable. Per patient, arthritis and fibromyalgia are flaring back up. documented in this encounter Plan of Treatment Scheduled Referrals Name Type Priority Associated Diagnoses Orde r Schedule AMB CONSULT PAIN CLINIC Outpatient Referral Routine DDD (degenerative disc disease), cervical Ordered: 04/16/2012 AMB CONSULT PHYSICAL THERAPY Outpatient Referral Routine Back pain Ordered: 04/16/2012 documented as of this encounter Visit Diagnoses Diagnosis DDD (degenerative disc disease), cervical- Primary Degeneration of cervical intervertebral disc Back pain Backache, unspecified documented in this encounter Care Teams Nurse Ortho Relationship Specialty Start Date End Date Remedios Mehta MD [address] [place] [phone] PCP - General 02/19/09 01/04/15 documented as of this encounter
--- OUTSIDE RECORDS SUMMARY | 2024-06-24 02:22 | XMS_ITS | Encounter Summary ---
Author Organization [facility] Address [address] [place] [address] Care Team Providers Care Email Deployment Specialist Name Role Phone Remedios Mehta MD Primary Care Provider [phone] Reason for Visit * Reason Onset Date Comments Medications Refill 10/28/2011 Encounter Details Date Type Department Care Team (Late st Contact Info) Description 10/28/[address] [address] Remedios Mehta MD [address] [place] [phone] Medications Refill Social History Tobacco Use [...] as needed for Pain. 84 Tab 1 10/31/2011 01/12/2012 documented in this encounter Miscellaneous Notes * Telephone Encounter - Tessa Spears - 10/28/2011 1443 EST Last Refill Date - 08.19.11 Last Visit Date - 08.31.11 Next Visit Date - 11.02.11 Is patient out of medication?no documented in this encounter Plan of Treatment Not on file documented as of this encounter Visit Diagnoses Diagnosis Arthritis- Primary Arthropathy, unspecified, site unspecified documented in this encounter Discontinued Medications Medication Sig Discontinue Reason Start Date End Da te hydrocodone-acetaminophe n (LORTAB;VICODIN) 5-500 mg per tabletIndications:Arthri tis Take 1 Tab by mouth every 6 hours as needed for Pain. Reorder 08/19/2011 10/28/2011 documented as of this encounter Care Teams Email Deployment Specialist Relationship Specialty Start Date End Date Remedios Mehta MD [address] [place] [phone] PCP - General 02/19/09 01/04/15 documented as of this encounter
--- OUTSIDE RECORDS SUMMARY | 2024-06-24 02:22 | XMS_ITS | Encounter Summary ---
Author Organization [facility] Address [address] [place] [address] Care Team Providers Care Cupola Worker Name Role Phone Remedios Mehta MD Primary Care Provider [phone] [phone] Reason for Visit * Reason Onset Date Comments Results 10/14/2011 Encounter Details Date Type Department Care Team (Late st Contact Info) Description 10/14/[address] [address] Remedios Mehta MD [address] [place] [phone] Results Social History Tobacco Use Types [...] Telephone Encounter - Remedios Strong MD - 10/14/2011 1736 EST Agreed. * Telephone Encounter - Emily Gibson LPN - 10/14/2011 1419 EST Spoke with Cherelle and she wants to know what her lab results. We went over her test but she has a lotof concerns about her cholesterol. She has an appointment with Dr. Strong on 11/02/2011 advised todiscuss this at that appointment * Telephone Encounter - Arlen Pollock - 10/14/2011 1327 EST Pt never heard about the results of her last labs. Would like a call documented in this encounter Plan of Treatment Not on file documented as of this encounter Visit Diagnoses Not on filedocumented in this encounter Care Teams Cupola Worker Relationship Specialty Start Date End Date Remedios Mehta MD [address] [place] [phone] PCP - General 02/19/09 01/04/15 documented as of this encounter
--- OUTSIDE RECORDS SUMMARY | 2024-06-24 02:22 | XMS_ITS | Encounter Summary ---
Author Organization Health system Address [address] [place] [address] Care Team Providers Care Senior Clinical Study Manager Name Role Phone Remedios Mehta MD Primary Care Provider [phone] [phone] Reason for Visit * Reason Onset Date Comments Medications Refill 06/01/2011 Encounter Details Date Type Department Care Team (Late st Contact Info) Description 06/01/[address] [address] Remedios Mehta MD [address] [place] [phone] Medications Refill Social History Tobacco Use [...] Diagnoses Diagnosis Arthropathy Arthropathy, unspecified, site unspecified documented in this encounter Care Teams Senior Clinical Study Manager Relationship Specialty Start Date End Date Remedios Mehta MD [address] [place] [phone] PCP - General 02/19/09 01/04/15 documented as of this encounter
--- OUTSIDE RECORDS SUMMARY | 2024-06-24 02:22 | XMS_ITS | Encounter Summary ---
Author Organization [facility] Address [address] [place] [address] Care Team Providers Care Road Mechanic Name Role Phone Remedios Mehta MD Primary Care Provider [phone] [phone] Reason for Visit * Reason Comments Other Encounter Details Date Type Department Care Team (Late st Contact Info) Description 07/04/2011 Refill [facility] Rheumatology & Immunology - [facility] [address] [place], [place] [id number] Yovana Callejas MD [address] [place] [address] [phone] Other Social History Tobacco Use [...] A WEEK 16 Each 3 07/04/2011 11/18/2011 documented in this encounter Plan of Treatment Not on file documented as of this encounter Visit Diagnoses Not on filedocumented in this encounter Discontinued Medications Medication Sig Discontinue Reason Start Date End Da te methotrexate 2.5 mg tabletIndications:Unspecifi ed inflammatory polyarthropathy Take 4 Tabs by mouth once a week. Duplicate Therapy 12/31/2010 07/05/2011 documented as of this encounter Care Teams Road Mechanic Relationship Specialty Start Date End Date Remedios Mehta MD [address] [place] [phone] PCP - General 02/19/09 01/04/15 documented as of this encounter
--- OUTSIDE RECORDS SUMMARY | 2024-06-24 02:22 | XMS_ITS | Encounter Summary ---
Author Organization [facility] Address [address] [place] [address] Care Team Providers Care Hand Printed Circuit Board Assembler Name Role Phone Remedios Mehta MD Primary Care Provider [phone] [phone] Encounter Details Date Type Department Care Team (Late st Contact Info) Description 01/13/[address] [address] Remedios Mehta MD [address] [place] [phone] Social History Tobacco Use Types Packs/Day [...] on filedocumented in this encounter Care Teams Hand Printed Circuit Board Assembler Relationship Specialty Start Date End Date Remedios Mehta MD [address] [place] [phone] PCP - General 02/19/09 01/04/15 documented as of this encounter
--- OUTSIDE RECORDS SUMMARY | 2024-06-24 02:22 | XMS_ITS | Encounter Summary ---
Author Organization [facility] Address [address] [place] [address] Care Team Providers Care Analysis Engineer Name Role Phone Remedios Mehta MD Primary Care Provider [phone] [phone] Reason for Visit * Reason Onset Date Comments Medications Refill 04/04/2012 Encounter Details Date Type Department Care Team (Late st Contact Info) Description 04/04/[address] [address] Remedios Mehta MD [address] [place] [phone] Medications Refill Social History Tobacco Use [...] Dispensed Refills Start Date End Da te metoprolol (LOPRESSOR) 25 mg tabletIndications:Hyperte nsion Take 1 Tab by mouth 2 times daily. 180 Tab 4 04/04/2012 06/05/2013 trazodone (DESYREL) 100 mg tabletIndications:Myalgia and myositis,Arthropathy Take 2 Tabs by mouth. Take 1-2 tabs at bedtime for sleep as needed 56 Tab 1 04/04/2012 08/15/2012 documented in this encounter Miscellaneous Notes * Telephone Encounter - Tania Nguyen - 04/04/2012 1230 EDT LAST SEEN 3.7. LAST FILL 11.18.11, 6.1.11 documented in this encounter Plan of Treatment Not on file documented as of this encounter Visit Diagnoses Diagnosis Myalgia and myositis Mylagia and myositis, unspecified Arthropathy Arthropathy, unspecified, site unspecified Hypertension Unspecified essential hypertension documented in this encounter Discontinued Medications Medication Sig Discontinue Reason Start Date End Da te metoprolol (LOPRESSOR) 25 mg tabletIndications:Hypert ension Take 1 Tab by mouth 2 times daily. Reorder 03/30/2011 04/04/2012 trazodone (DESYREL) 100 mg tabletIndications:Myalgi a and myositis,Arthropathy Take 2 Tabs by mouth. Take 1-2 tabs at bedtime for sleep as needed Reorder 11/18/2011 04/04/2012 documented as of this encounter Care Teams Analysis Engineer Relationship Specialty Start Date End Date Remedios Mehta MD [address] [place] [phone] PCP - General 02/19/09 01/04/15 documented as of this encounter
--- OUTSIDE RECORDS SUMMARY | 2024-06-24 02:22 | XMS_ITS | Encounter Summary ---
Author Organization [facility] Address [address] [place] [address] Care Team Providers Care Freight Receiver Name Role Phone Remedios Mehta MD Primary Care Provider [phone] [phone] Reason for Visit * Reason Onset Date Comments Medications Refill 09/19/2011 Encounter Details Date Type Department Care Team (Late st Contact Info) Description 09/19/[address] [address] Remedios Mehta MD [address] [place] [phone] Medications Refill Social History Tobacco Use [...] Da te zafirlukast (ACCOLATE) 20 mg tabletIndications:Asthma Take 1 Tab by mouth 2 times daily. 60 Tab 5 09/19/2011 07/16/2012 pantoprazole (PROTONIX) 40 mg tabletIndications:GERD (gastroesophageal reflux disease) Take 1 Tab by mouth daily. 30 Tab 3 09/19/2011 11/21/2011 documented in this encounter Miscellaneous Notes * Telephone Encounter - Arlen Pollock - 09/19/2011 1313 EST Last refill date 07.12.11 AND 01.14.11 Last visit date 11. Next visit date 11.02.11 When will they be out? documented in this encounter Plan of Treatment Not on file documented as of this encounter Visit Diagnoses Diagnosis GERD (gastroesophageal reflux disease) Esophageal reflux Asthma Unspecified asthma documented in this encounter Discontinued Medications Medication Sig Discontinue Reason Start Date End Da te pantoprazole (PROTONIX) 40 mg tabletIndications:GERD (gastroesophageal reflux disease) Take 1 Tab by mouth daily. Reorder 07/12/2011 09/19/2011 zafirlukast (ACCOLATE) 20 mg tabletIndications:Asthma Take 1 Tab by mouth 2 times daily. Reorder 01/14/2011 09/19/2011 documented as of this encounter Care Teams Freight Receiver Relationship Specialty Start Date End Date Remedios Mehta MD [address] [place] [phone] PCP - General 02/19/09 01/04/15 documented as of this encounter
--- OUTSIDE RECORDS SUMMARY | 2024-06-24 02:22 | XMS_ITS | Encounter Summary ---
Author Organization [facility] Address [address] [place] [address] Care Team Providers Care Lithograph Press Operator Name Role Phone Remedios Mehta MD Primary Care Provider [phone] [phone] Reason for Visit * Reason Onset Date Comments Results 01/06/2012 Encounter Details Date Type Department Care Team (Late st Contact Info) Description 01/06/2012 Telephone [facility] Medicine - [address] [address] Nayeli Swift LPN Results Social History Tobacco Use Types Packs/Day [...] Telephone Encounter - Nayeli Swift LPN - 01/06/2012 1633 EST Spoke with patient she was informed of the Lucencies on the films and this may represent non displaced fractures. Have advised her that she should have xrays retaken the first part of next week. Have given her instructions to rest, elevate and splint if possible. I was supervised by Meliza Leija MD who was present and immediately available in the office suite. Nayeli Swift LPN 01/06/2012 16:37 documented in this encounter Plan of Treatment Not on file documented as of this encounter Visit Diagnoses Not on filedocumented in this encounter Care Teams Lithograph Press Operator Relationship Specialty Start Date End Date Remedios Mehta MD [address] [place] [phone] PCP - General 02/19/09 01/04/15 documented as of this encounter
--- OUTSIDE RECORDS SUMMARY | 2024-06-24 02:22 | XMS_ITS | Encounter Summary ---
Author Organization [facility] Address [address] [place] [address] Care Team Providers Care Pin Inserter Regulator Name Role Phone Remedios Mehta MD Primary Care Provider [phone] Reason for Visit * Reason Comments Joint Pain back , neck, hands/ no pain meds since Monday and she states adriana she has been having a flare since 2 weeks ago now Generalized Body Aches all over aches/ Encounter Details Date Type Department Care Team (Late st Contact Info) Description 03/05/2012 14:45 EDT Office Visit [facility] Rheumatology & Immunology - [address] [phone] Delia Perez, MARIA [address] [facility] [address] [place] [address] Fibromyalgia; Psoriatic arthritis (CMS-HCC) ([facility]-CMS); Degenerative disc disease; Arthritis Social History Tobacco Use Types Packs/Day [...] Reading Time Taken Comments Blood Pressure 100/60 03/05/2012 1509 EDT Pulse 76 03/05/2012 1509 EDT Temperature - - Respiratory Rate 16 03/05/2012 1509 EDT Oxygen Saturation - - Inhaled Oxygen [...] encounter Patient Instructions * Patient Instructions* Delia Perez PA - 03/05/2012 15:38 EDT 1. Pain clinic consult for possible injections 2. Labs today 3. Increase methotrexate to 15 mg weekly (#6 pills) 4. Continue plaquenil 400 mg daily, with annual eye exams 5. Prednisone burst 30 mg daily x 3 days, 20 mg daily x 3 days, 10 mg daily x 3 days 6. Cymbalta 40 mg daily (can increase) 7. Hydrocodone 5/500 1 pill up to three times daily for pain documented in this encounter Ordered Prescriptions Prescription Sig Dispensed Refills Start Date End Da te hydrocodone-acetaminophen (LORTAB;VICODIN) 5-500 mg per tabletIndications:Arthriti s Take 1 Tab by mouth every 8 hours as needed for Pain. 90 Tab 3 03/05/2012 06/04/2012 methotrexate 2.5 mg tablet Take 6 Tabs by mouth once a week. 24 Each 3 03/05/2012 06/04/2012 predniSONE (DELTASONE) 10 mg tablet 30 mg daily x 3 days, 20 mg daily x 3 days, 10 mg daily x 3 days 18 Tab 1 03/05/2012 03/23/2012 documented in this encounter Progress Notes * Delia Perez PA - 03/05/2012 1516 EDT Division of Rheumatology and Clinical Immunology Chief Complaint Patient presents with ??? Joint Pain back , neck, hands/ no pain meds since Monday and she states adriana she has been having a flare since 2 weeks ago now ??? Generalized Body Aches all over aches/ HPI: Ms. Cherelle Husain is a 51 y.o. year old patient with fibromyalgia, psoriatic arthritis and degenerative disc disease.She reports several episodes of sausage fingers since her visit last March.She has been taking methotrexate 10 mg weekly with no problems with mouth sores, cough, shortness of breath, chest pain or rash. She takes Cymbalta and hydrocodone for her chronic fibromyalgia pain. She has been without her hydrocodone x 3 days. She has worsening joint pain, headaches, and fever since Monday. She feels that her neck is getting worse. She has been to the pain clinic to take a course on chronic pain. She has had no interventions or injections to her neck or spine. She has not been sleeping due to financial stresses. She's been getting intermittent left sided migraines. She stopped Lyrica because she felt it wasn't working. Outpatient Prescriptions Prior to Visit Medication Sig Dispense Refill ??? hydrocodone-acetaminophen (LORTAB;VICODIN) 5-500 mg per tablet Take 1 Tab by mouth every 6 hours as needed for Pain for 28 days. 84 Tab 0 ??? cyclobenzaprine (FLEXERIL) 10 mg tablet Take 1 Tab by mouth every 8 hours as needed for Muscle Spasms. 30 Tab 0 ??? hydroxychloroquine (PLAQUENIL) 200 mg tablet Take [...] once a week. 16 Each 3 ??? zafirlukast (ACCOLATE) 20 mg tablet [...] fluticasone (FLONASE) 50 mcg/Actuation nasal spray 1 Barnum by Nasal route daily. 1 Bottle 5 [...] 4 hours as needed for Wheezing. Allergies include: Latex, natural rubber; Aspirin; Chocolate flavor; Codeine; Egg/poultry; Penicillins; Sulfa(sulfonamide antibiotics); Soy; and Wheat containing prod REVIEW OF SYSTEMS: Yes No Yes No Fever x Joint pain x Fatigue x Muscle pain x Night sweats x Morning stiffness x Weight change x If yes, duration 4 hours Gain or loss? Numbness/tingling x Eye discomfort [...] w/cold x Hair Loss x PHYSICAL EXAMINATION: VITALS: BP 100/60 Pulse 76 Resp 16 LMP 03/09/2010 HEENT: NCAT, occipital tenderness Neck: Supple, midline tenderness Back: diffuse upper trapezius tenderness, lumbar tenderness, +SLR bilaterally Heart: RR no murmurs Lungs: Clear to ascultation bilaterally Shoulders:Full ROM without pain Elbows:Distal epicondylar pain bilatera Wrists:Full ROM without pain or swelling Hands: Puffy no evidence of dactylitis.MCP tenderness. Complete fists with strong symmetric saw operator strength Hips: SI joint tenderness and trochanteric tenderness. Knees:medial fat pad tenderness Ankles: medial malleolus tenderness Feet: MTP tenderness. No dactylitis Neuro: Gait is normal. Upper and lower extremity strength are symmetric and equal. Skin: No pitting, no psoriasis Labs: pending. Assessment: Psoriatic arthritis: Flaring with mild control only on 10 mg mtx weekly. It is difficult to differentiate between her Fibromyalgia pain and her psoriatic arthritis. She has some joint pain that is overshadowed by disproportionately more myofascial pain. Her joints especially in her feet and hands are tender but not swollen. Will try increasing her methotrexate to 15 mg weekly, and starting prednisone burst. Needs labs every 2-3 months. Fibromyalgia: Flaring. 18/18 trigger points. Poor response to Lyrica. Moderate response to Cymbalta, could increase if needed. Degenerative disc disease: Longstanding back and neck degenerative changes. Last films are from 2007, would benefit from further evaluation from spine or pain clinics. Hydrocodone helping. Would alsobenefit from core strengthening. Recommendation: 1. Pain clinic consult for possible injections 2. Labs today 3. Increase methotrexate to 15 mg weekly (#6 pills) 4. Continue plaquenil 400 mg daily, with annual eye exams 5. Prednisone burst 30 mg daily x 3 days, 20 mg daily x 3 days, 10 mg daily x 3 days 6. Cymbalta 40 mg daily (can increase) 7. Hydrocodone 5/500 1 pill up to three times daily for pain refilled #90 8. Follow up with Dr. Callejas No barriers to learning identified Patient verbalizes understanding and agrees with plan. Dr. Joyner was my supervising physician and she was immediately available for consult in the Rheumatology Suite. MARIA Fulton 03/05/2012 15:16 I was present in the clinic for consultation while the PA was seeing patients. Chandana Joyner MD. 03/05/2012 documented in this encounter Plan of Treatment Not on file documented as of this encounter Procedures Procedure Name Priority Date/Time Associated Diagnosis Comments L SPINE 2-3 VIEWS Routine 03/28/2012 10: 55 EDT Degenerative disc disease Psoriatic arthritis ([facility]) ([facility]) CERVICAL SPINE 2-3 VIEWS Routine 03/28/2012 10:55 EDT Psoriatic arthritis ([facility]) ([facility]) Degenerative disc disease documented in this encounter Results * CERVICAL SPINE 2-3 VIEWS (03/28/2012 10:55 EDT) Anatomical Region Laterality Modality Other 03/28/2012 10:5 5 EDT 03/28/2012 11:19 EDT Narrative 03/28/2012 11:19 EDT CERVICAL SPINE 2-3 VIEWS ??March 28, 2012 10:55:00 AM Clinical History/Comments: 696.0-PSORIATIC [id number]-CM 722.6-DEGENERATION OF INTERVERTEBRAL DISC, SITE [id number]-4-CM chronic neck pain with DJD Comparison: 2007 Findings: Small endplate osteophytes at C4, C5, C6, and C7. C6-C7 disc space narrowing, slightly progressed in severity since 2007. No prevertebral soft tissue swelling. Conclusion: Increased degenerative disc space narrowing at C6-C7. If focal neurologic symptoms exist, MRI may be useful. Procedure Note 03/28/2012 CERVICAL SPINE 2-3 VIEWS March 28, 2012 10:55:00 AM Clinical History/Comments: 696.0-PSORIATIC [id number]-4-CM 722.6-DEGENERATION OF INTERVERTEBRAL DISC, SITE [id number]-LET-3-CM chronic neck pain with DJD Comparison: 2007 Findings: Small endplate osteophytes at C4, C5, C6, and C7. C6-C7 disc space narrowing, slightly progressed in severity since 2007. No prevertebral soft tissue swelling. Conclusion: Increased degenerative disc space narrowing at C6-C7. If focal neurologic symptoms exist, MRI may be useful. Delia SIFUENTES Jeff DIAGNOSTIC IMAG ING ORDERABLES * L SPINE 2-3 VIEWS (03/28/2012 10:55 EDT) Anatomical Region Laterality Modality Other 03/28/2012 10:5 5 EDT 03/28/2012 11:20 EDT Narrative 03/28/2012 11:20 EDT L SPINE 2-3 VIEWS ??March 28, 2012 10:55:00 AM Clinical History/Comments: 722.6-DEGENERATION OF INTERVERTEBRAL DISC, SITE [id number]-FSO-0-CM 696.0-PSORIATIC NVFCVJEYGLM-QXM-2-CM chronic back pain with DJD Comparison: No old studies Findings: Two-view lumbar spine. Vertebral body height and intervertebral the spaces are maintained at all levels. No fracture or dislocation. If focal neurological symptoms exist, MRI recommended. Procedure Note 03/28/2012 L SPINE 2-3 VIEWS March 28, 2012 10:55:00 AM Clinical History/Comments: 722.6-DEGENERATION OF INTERVERTEBRAL DISC, SITE [id number]-2-CM 696.0-PSORIATIC LUSQBCOURDX-ZYH-3-CM chronic back pain with DJD Comparison: No old studies Findings: Two-view lumbar spine. Vertebral body height and intervertebral the spaces are maintained at all levels. No fracture or dislocation. If focal neurological symptoms exist, MRI recommended. Delia MINER DIAGNOSTIC IMAG ING ORDERABLES * ANTI NUCLEAR ANTIBODY (03/05/2012 16:14 EDT) Anti Nuclear Ab <40 0 - 40 Dils [facility] Blood specimen (specimen) 03/05/2012 16:14 EDT 03/05/2012 16:33 EDT Delia SIFUENTES IMMUNOLOGY AND SERO LOGY ORDERABLES [facility] [address] [place] [address] * SED. RATE:WESTERGREN (03/05/2012 16:14 EDT) Pathologist [facility] Sed. Rate Westergren 12 0 - 30 mm/hr [facility] Blood specimen (specimen) 03/05/2012 16:14 EDT 03/05/2012 16:33 EDT Delia SIFUENTES HEMATOLOGY & PF4 OR DERABLES Performing Organization Address [facility] de Phone Number [facility] [address] [place] [address] * DMARD PROFILE (03/05/2012 16:14 EDT) Pathologist [facility] Total Alkaline Phosphatase 73 38 - 126 U/L [facility] AST 20 15 - 46 U/L [facility] ALT 30 9 - 52 U/L [facility] Albumin 4.1 3.4 - 4.9 g/dl [facility] Creatinine 0.75 0.52 - 1.04 mg/dl [facility] GFR, Calculated >60 >60 ml/min/1.7 3m2 [facility] Blood specimen (specimen) 03/05/2012 16:14 EDT 03/05/2012 16:33 EDT Delia SIFUENTES CHEMISTRY & BLOOD G ORDERABLES Performing Organization Address [facility] de Phone Number [facility] [address] [place] [address] * HEMAGRAM AND DIFFERENTIAL (03/05/2012 16:14 EDT) Pathologist [facility] WBC 7.04 4.0 - 12.4 K/cmm [facility] RBC 4.06 3.86 - 5.04 M/cmm [facility] Hemoglobin 12.9 11.6 - 15.2 gm/dl [facility] HCT 38.2 34.9 - 44.4 % [facility] MCV 94 81 - 98 fl [facility] MCH 31.9 26.7 - 33.3 pg [facility] MCHC 33.9 32.1 - 35.9 gm/dl [facility] PLT 278 141 - 320 K/cmm [facility] RDW-CV 13.3 11.7 - 14.6 % [facility] % Neutrophils 54.9 45.5 - 79.7 % [facility] % Lymphocytes 33.0 15.0 - 46.8 % [facility] % Monocytes 9.3 1.8 - 12.0 % [facility] % Eosinophils 2.4 0.6 - 6.9 % [facility] % Basophils 0.4 0.2 - 1.4 % [facility] ABS Neutrophils 3.86 2.20 - 8.85 K/cmm [facility] ABS Lymphs 2.32 1.09 - 3.30 K/cmm [facility] ABS Monocytes 0.65 0.1 - 0.8 K/cmm [facility] ABS Eosinophils 0.17 0.03 - 0.61 K/cmm [facility] ABS Basophils 0.03 0.01 - 0.11 K/cmm [facility] Type of Diff: Automated [facility] Blood specimen (specimen) 03/05/2012 16:14 EDT 03/05/2012 16:33 EDT Delia SIFUENTES PACKAGES & DNA PROB E ORDERABLES Performing Organization Address City/State/[facility] Co de Phone Number [facility] [address] [place] [address] documented in this encounter Visit Diagnoses Diagnosis Fibromyalgia Mylagia and myositis, unspecified Psoriatic arthritis (HCC-CMS) Psoriatic arthropathy Degenerative disc disease Degeneration of intervertebral disc, site unspecified Arthritis Arthropathy, unspecified, site unspecified documented in this encounter Discontinued Medications Medication Sig Discontinue Reason Start Date End Da te cyclobenzaprine (FLEXERIL) 10 mg tabletIndications:Mult iple contusions Take 1 Tab by mouth every 8 hours as needed for Muscle Spasms. Patient Stopped Taking 01/04/2012 03/05/2012 lorazepam (ATIVAN) 0.5 mg Tab Take 0.5 mg by mouth as needed. Formulary change 03/05/2012 methotrexate 2.5 mg tablet Take 4 Tabs by mouth once a week. Reorder 11/18/2011 03/05/2012 hydrocodone-acetaminop hen (LORTAB;VICODIN) 5-500 mg per tabletIndications:Arth ritis Take 1 Tab by mouth every 6 hours as needed for Pain for 28 days. Reorder 01/13/2012 03/05/2012 documented as of this encounter Care Teams Pin Inserter Regulator Relationship Specialty Start Date End Date Remedios Mehta MD [address] [place] [phone] PCP - General 02/19/09 01/04/15 documented as of this encounter
--- OUTSIDE RECORDS SUMMARY | 2024-06-24 02:22 | XMS_ITS | Encounter Summary ---
Author Organization [facility] Address [address] [place] [address] Care Team Providers Care Secondary History Teacher Name Role Phone Keshawn Mehta MD Primary Care Provider [phone] [phone] Encounter Details Date Type Department Care Team (Late st Contact Info) Description 08/31/2011 Results Only [facility] Family Medicine [address] [address] Keshawn Mehta MD [address] [place] [phone] Social History Tobacco Use Types Packs/Day [...] Procedure Name Priority Date/Time Associated Diagnosis Comments PAP TEST- RESULT ONLY Routine 08/31/2011 0:00 EDT documented in this encounter Results * PAP TEST- RESULT ONLY (08/31/2011 0:00 EDT) Pathology Report: CYTOPATHOLOGY REPORT Reports generated via electronic interface contain original data; however they are lacking the format of the original report. Caution should be taken when reading/interpreti ng unformatted reports. Name: ? CHERELLE HUSAIN ? Accession #: ? [id number] : ? 1960 (Age: 51) ??F ?Collect Date: ? 08/31/2011 Location: ? COL ? Receive Date: ? 09/01/2011 Provider: ?KESHAWN MEJIA MD Copy to: ? Specimen/Source: ?Pap Test, Source Not Provided, ThinPrep Imaging System with manual evaluation Last Menstrual Period: ? Menstrual/Pregnanc y Status: ? Post Menopausal: 5 years ? SPECIMEN ADEQUACY ? Satisfactory for Evaluation - transformation zone component present GENERAL CATEGORIZATION ? Negative for Intraepithelial Lesion or Malignancy INTERPRETATION ? Shift in iona present suggestive of bacterial vaginosis. ? Document reviewed and electronically signed by: ? LALA Loera(ASCP)(IAC) ? Report Date: ??09/07/2011 16:57 End of Report [facility] 08/31/2011 09/01/2011 Keshawn Mheta MD PATHOLOGY ORDERAB LES [facility] [address] [place] [address] documented in this encounter Visit Diagnoses Not on filedocumented in this encounter Care Teams Secondary History Teacher Relationship Specialty Start Date End Date Keshawn Mehta MD [address] [place] [phone] PCP - General 02/19/09 01/04/15 documented as of this encounter
--- OUTSIDE RECORDS SUMMARY | 2024-06-24 02:22 | XMS_ITS | Encounter Summary ---
Author Organization [facility] Address [address] [place] [address] Care Team Providers Care Solid Waste Engineer Name Role Phone Remedios Mehta MD Primary Care Provider [phone] [phone] Reason for Visit * Reason Comments Fibromyalgia f/u, review labs Obesity Hyperlipidemia Gastroesophageal Reflux Asthma Encounter Details Date Type Department Care Team (Latest Contact Info) Description 11/02/2011 13:00 EST Office Visit [address] [address] Remedios Mehta MD [address] [place] [phone] Fibromyalgia; Asthma; Hyperlipidemia; LBP (low back pain); Prolonged posttraumatic stress disorder Discharge Disposition: Auto Discharge Social History Tobacco [...] Sign Reading Time Taken Comments Blood Pressure 92/64 11/02/2011 1303 EST Pulse 60 11/02/2011 1303 EST Temperature - - Respiratory Rate - - Oxygen Saturation - - Inhaled Oxygen Concentration - - Weight 94.8 kg (209 lb) 11/02/2011 1303 EST Height - - Body Mass Index 40.15 08/31/2011 1446 EDT documented in this encounter Functional Status Cognitive Status Response Date of Assessm ent Because of a physical, menta l, or emotional condition, do you have serious difficulty concentrating, remembering, or making decisions? (5 years old or older) Yes 04/15/2010 documented as of this encounter Patient Instructions * Patient Instructions* Remedios Strong MD - 11/02/2011 13:15 EST Results for CHERELLE HUSAIN ( ) as of 11/02/2011 13:12 Ref. Range 09/14/2011 10:30 09/14/2011 10:30 Sodium Latest Range: 136-145 mEq/L 141 Potassium Latest Range: 3.5-5.0 mEq/L 4.2 CO2 Latest Range: 24-32 mEq/L 28 Chloride Latest Range: 96-110 mEq/L 105 BUN Latest Range: 10-26 mg/dl 17 Creatinine Latest Range: 0.7-1.5 mg/dl 0.77 ALT Latest Range: 9-52 U/L 28 GFR, Calculated Latest Range: >60 ml/min/1.73m2 >60 Glucose, Serum Latest Range: 70-100 mg/dl 80 Calcium Latest Range: 8.5-10.5 mg/dl 9.3 Calculated Calcium Latest Range: 8.5-10.5 mg/dl 9.7 Total Protein Latest Range: 6.5-8.3 g/dl 6.7 Albumin Latest Range: 3.4-4.9 g/dl 4.0 Total Alkaline Phosphatase Latest Range: 38-126 U/L 63 AST Latest Range: 15-46 U/L 17 Bilirubin, Total Latest Range: 0.2-1.3 mg/dl 0.8 Fasting? No range found Yes Yes Cholesterol No range found 196 Triglycerides Latest Range: 35-160 mg/dl 192 (H) HDL No range found 40 LDL No range found 118 Chol/HDL Ratio No range found 4.9 Hemoglobin A1C No range found 5.8 Est Avg Glucose No range found 120 TSH Latest Range: 0.35-5.00 uIU/ml 1.36 documented in this encounter Discharge Disposition Disposition Code Departure Means Destination Auto Discharge documented in this encounter Progress Notes * Remedios Strong MD - 11/02/2011 1503 EST Subjective: Patient ID: Cherelle Husain is an 51 y.o. female. Chief Complaint Patient presents with ??? Fibromyalgia f/u, review labs ??? Obesity ??? Hyperlipidemia ??? Gastroesophageal Reflux ??? Asthma HPI Cherelle is here for follow up. She actually feels like she is doing well overall. Fibromyalgia is always a little worse in winter. So is her asthma. But her medications keep things stable. Saw gynecology about pelvic pain. Was given some options. Still considering them. Not worse right now. Is tolerating the lovastatin but does think it made her fibromyalgia a little worse when she started it. Also causes some mild nausea which is not getting worse. Got her flu shot. Looking for work. Doing her home PT. Watching her diet and has lost weight! PMH/PSH/Meds/All/FH/SH all reviewed and updated in prism. [...] Tab by mouth daily. 30 Tab 3 ??? zafirlukast (ACCOLATE) 20 mg tablet [...] fluticasone (FLONASE) 50 mcg/Actuation nasal spray 1 [place] by Nasal route daily. 1 Bottle 5 [...] occasional ROS - See HPI Objective: BP 92/64 Pulse 60 Wt 94.802 kg (209 lb) Physical Exam Constitutional: She is oriented to [...] for: Plan: Cherelle was seen today for fibromyalgia, obesity, hyperlipidemia, gastroesophageal reflux and asthma. Diagnoses and associated orders for this visit: Fibromyalgia The current medical regimen is effective; continue present plan and medications. Asthma The current medical regimen is effective; continue present plan and medications. Hyperlipidemia The current medical regimen is effective; continue present plan and medications. Continue lovastatin and recheck in 6 months Lbp (low back pain) The current medical regimen is effective; continue present plan and medications. Prolonged posttraumatic stress disorder Encouraged to continue in therapy documented in this encounter Plan of Treatment Not on file documented as of this encounter Visit Diagnoses Diagnosis Fibromyalgia Mylagia and myositis, unspecified Asthma Unspecified asthma Hyperlipidemia Other and unspecified hyperlipidemia LBP (low back pain) Lumbago Prolonged posttraumatic stress disorder Posttraumatic stress disorder documented in this encounter Care Teams Solid Waste Engineer Relationship Specialty Start Date End Date Remedios Mehta MD [address] [place] [phone] PCP - General 02/19/09 01/04/15 documented as of this encounter
--- OUTSIDE RECORDS SUMMARY | 2024-06-24 02:22 | XMS_ITS | Encounter Summary ---
Author Organization [facility] Address [address] [place] [address] Care Team Providers Care Personal Consultant Name Role Phone Remedios Mehta MD Primary Care Provider [phone] [phone] Reason for Visit * Reason Onset Date Comments Medications Refill 06/08/2011 Encounter Details Date Type Department Care Team (Late st Contact Info) Description 06/08/[address] [address] Remedios Mehta MD [address] [place] [phone] Medications Refill Social History Tobacco Use [...] for Pain. 84 Tab 1 06/14/2011 08/19/2011 documented in this encounter Miscellaneous Notes * Telephone Encounter - Brook Weathers - 06/08/2011 1039 EDT She has 3 pills left Last rx 02/01/11 #84 No refills Last appt 04/15/11 Next appt 07/06/11 documented in this encounter Plan of Treatment Not on file documented as of this encounter Visit Diagnoses Diagnosis Arthritis- Primary Arthropathy, unspecified, site unspecified documented in this encounter Discontinued Medications Medication Sig Discontinue Reason Start Date End Da te hydrocodone-acetaminophen (LORTAB;VICODIN) 5-500 mg per tablet Take 1 Tab by mouth every 4 hours. Reorder 06/08/2011 documented as of this encounter Care Teams Personal Consultant Relationship Specialty Start Date End Date Remedios Mehta MD [address] [place] [phone] PCP - General 02/19/09 01/04/15 documented as of this encounter
--- OUTSIDE RECORDS SUMMARY | 2024-06-24 02:22 | XMS_ITS | Encounter Summary ---
Author Organization [facility] Address [address] [place] [address] Care Team Providers Care Stripe Marker Name Role Phone Remedios Mehta MD Primary Care Provider [phone] [phone] Encounter Details Date Type Department Care Team (Late st Contact Info) Description 01/24/2012 Results Only Imaging [facility] Family Medicine [address] [address] Remedios Mehta MD [address] [place] [phone] Social History Tobacco Use Types Packs/Day [...] Associated Diagnosis Comments MA MAMMO SCREENING DIGITAL 03/28/2012 11:09 EDT documented in this encounter Results * MA MAMMO SCREENING DIGITAL (03/28/2012 11:09 EDT) Anatomical Region Laterality Modality Other 03/28/2012 11:0 9 EDT 03/28/2012 16:27 EDT Narrative 03/28/2012 16:27 EDT Comparison has been made to previous images. Bilateral Breast Findings: (Routine digital views with CAD) The breasts are almost entirely fat (less than 25% fibroglandular). No significant masses, calcifications or other abnormalities are seen. IMPRESSION: BILATERAL BREASTS: Negative, no evidence of malignancy. Normal interval follow-up is recommended in 12 months. OVERALL ASSESSMENT - CATEGORY 1 - NEGATIVE END OF IMPRESSION The patient will be notified of her/his breast imaging results via a lay letter from Radiology. Radiology will contact the patient directly regarding any findings which require additional imaging (Category 0) at this time. Procedure Note 03/28/2012 Comparison has been made to previous images. Bilateral Breast Findings: (Routine digital views with CAD) The breasts are almost entirely fat (less than 25% fibroglandular). No significant masses, calcifications or other abnormalities are seen. IMPRESSION: BILATERAL BREASTS: Negative, no evidence of malignancy. Normal interval follow-up is recommended in 12 months. OVERALL ASSESSMENT - CATEGORY 1 - NEGATIVE END OF IMPRESSION The patient will be notified of her/his breast imaging results via a lay letter from Radiology. Radiology will contact the patient directly regarding any findings which require additional imaging (Category 0) at this time. Remedios Mehta MD IMG MAMMOGRAPHY O RDERABLES documented in this encounter Visit Diagnoses Not on filedocumented in this encounter Care Teams Stripe Marker Relationship Specialty Start Date End Date Remedios Mehta MD [address] [place] [phone] PCP - General 02/19/09 01/04/15 documented as of this encounter
--- OUTSIDE RECORDS SUMMARY | 2024-06-24 02:22 | XMS_ITS | Encounter Summary ---
Author Organization [facility] Address [address] [place] [address] Care Team Providers Care Electronic Test Technician Name Role Phone Remedios Mehta MD Primary Care Provider + [phone] Encounter Details Date Type Department Care Team (Late st Contact Info) Description 03/05/2012 Phlebotomy Only [address] [address] Telemetry Registered Nurse, Outpatient Psoriatic arthritis ([facility]) ([facility]); Fibromyalgia; Arthritis Social History Tobacco Use Types Packs/Day [...] Procedure Name Priority Date/Time Associated Diagnosis Comments DMARD PROFILE Routine 03/05/2012 16:14 EDT Psoriatic arthritis ([facility]) ([facility]) Fibromyalgia SED RATE Routine 03/05/2012 16:14 EDT Psoriatic arthritis ([facility]) ([facility]) Fibromyalgia COMPLETE BLOOD COUNT AND DIFFERENTIAL Routine 03/05/2012 16:14 EDT Psoriatic arthritis ([facility]) ([facility]) Fibromyalgia ANTI NUCLEAR AB (GAYLE), IFA Routine 03/05/2012 16:14 EDT Psoriatic arthritis ([facility]) ([facility]) Arthritis documented in this encounter Results * ANTI NUCLEAR ANTIBODY (03/05/2012 16:14 EDT) Pathologist [facility] Anti Nuclear Ab <40 0 - 40 Dils [facility] Blood specimen (specimen) 03/05/2012 16:14 EDT 03/05/2012 16:33 EDT Delia SIFUENTES IMMUNOLOGY AND SERO LOGY ORDERABLES Performing Organization Address [facility] Phone Number [facility] [address] [place] [address] * SED. RATE:WESTERGREN (03/05/2012 16:14 EDT) Pathologist [facility] Sed. Rate Westergren 12 0 - 30 mm/hr [facility] Blood specimen (specimen) 03/05/2012 16:14 EDT 03/05/2012 16:33 EDT Delia SIFUENTES HEMATOLOGY & PF4 OR DERABLES Performing Organization Address [facility] de Phone Number [facility] [address] [place] [address] * DMARD PROFILE (03/05/2012 16:14 EDT) Total Alkaline Phosphatase 73 38 - 126 U/L [facility] AST 20 15 - 46 U/L [facility] ALT 30 9 - 52 U/L [facility] Albumin 4.1 3.4 - 4.9 g/dl [facility] Creatinine 0.75 0.52 - 1.04 mg/dl [facility] GFR, Calculated >60 >60 ml/min/1.7 3m2 [facility] Blood specimen (specimen) 03/05/2012 16:14 EDT 03/05/2012 16:33 EDT Delia SIFUENTES CHEMISTRY & BLOOD G ORDERABLES [facility] [address] [place] [address] * HEMAGRAM AND DIFFERENTIAL (03/05/2012 16:14 EDT) WBC 7.04 4.0 - 12.4 K/cmm [facility] RBC 4.06 3.86 - 5.04 M/cmm [facility] Hemoglobin 12.9 11.6 - 15.2 gm/dl [facility] HCT 38.2 34.9 - 44.4 % [facility] MCV 94 81 - 98 fl [facility] MCH 31.9 26.7 - 33.3 pg [...] [facility] Type of Diff: Automated [facility] Blood specimen (specimen) 03/05/2012 16:14 EDT 03/05/2012 16:33 EDT Delia Perez PA PACKAGES & DNA PROB E ORDERABLES [facility] [address] [place] [address] documented in this encounter Visit Diagnoses Diagnosis Psoriatic arthritis ([facility]) Psoriatic arthropathy Fibromyalgia Mylagia and myositis, unspecified Arthritis Arthropathy, unspecified, site unspecified documented in this encounter Care Teams Electronic Test Technician Relationship Specialty Start Date End Date Remedios Mehta MD [address] [place] [phone] PCP - General 02/19/09 01/04/15 documented as of this encounter
--- OUTSIDE RECORDS SUMMARY | 2024-06-24 02:22 | XMS_ITS | Encounter Summary ---
Author Organization [facility] Address [address] [place] [address] Care Team Providers Care Shotblast Operator Name Role Phone Remedios Mehta MD Primary Care Provider [phone] [phone] Encounter Details Date Type Department Care Team (Late st Contact Info) Description 01/10/2012 14:53 EDT - 01/10/2012 23:59 EDT Hospital Encounter [facility] [address] [place] [address] Manasa Luciano PA-C [address] [place] [phone] Discharge Disposition: Auto Discharge Social History Tobacco [...] mg by mouth 2 times daily. 08/01/2012 cyclobenzaprine (FLEXERIL) 10 mg tabletIndications:Mul tiple contusions Take 1 Tab by mouth every 8 hours as needed for Muscle Spasms. 30 Tab 0 01/04/2012 03/05/2012 duloxetine (CYMBALTA) 20 mg capsuleIndications:De pression, major Take 1 Cap by mouth 2 times daily. 60 Cap 4 08/31/2011 04/04/2012 fluticasone (FLONASE) 50 mcg/Actuation nasal spray 1 [place] by Nasal route daily. 1 Bottle 5 03/17/2011 07/16/2012 hydrocodone-acetamino phen (LORTAB;VICODIN) 5-500 mg per tabletIndications:Art hritis Take 1 Tab by mouth every 6 hours as needed for Pain. 84 Tab 1 10/31/2011 01/12/2012 hydroxychloroquine (PLAQUENIL) 200 mg tabletIndications:Art hropathy Take [...] 07/06/2011 07/16/2012 methotrexate 2.5 mg tablet Take 4 Tabs by mouth once a week. 16 Each 3 11/18/2011 03/05/2012 metoprolol (LOPRESSOR) 25 mg tabletIndications:Hyp ertension Take [...] on filedocumented in this encounter Care Teams Shotblast Operator Relationship Specialty Start Date End Date Remedios Mehta MD [address] [place] [phone] PCP - General 02/19/09 01/04/15 documented as of this encounter
--- OUTSIDE RECORDS SUMMARY | 2024-06-24 02:23 | XMS_ITS | Encounter Summary ---
Author Organization [facility] Address [address] [place] [address] Care Team Providers Care Commercial Director Name Role Phone Remedios Mehta MD Primary Care Provider [phone] [phone] Reason for Visit * Reason Comments Asthma recheck Back Pain URI sore throat, ear mike n, congestion Encounter Details Date Type Department Care Team (Late st Contact Info) Description 02/25/2011 14:45 EDT Office Visit [address] [address] Remedios Mehta MD [address] [place] [phone] Sinusitis, acute (Primary Dx); Fibromyalgia; OA (osteoarthritis) of knee; Obesity; Depression; Asthma Social History Tobacco Use Types Packs/Day [...] Reading Time Taken Comments Blood Pressure 110/60 02/25/2011 1537 EDT Pulse 72 02/25/2011 1537 EDT Temperature 36.4 ??C (97.6 ??F) 02/25/2011 1537 EDT Respiratory Rate - - Oxygen Saturation [...] * Patient Instructions* Remedios Strong MD - 02/25/2011 15:55 EDT Images from the original note were not included. [facility] Patient Instructions Asthma Attacks in Adults: After Your Visit Your Care Instructions During [...] to prevent and treat attacks. If you do not have an asthma actionplan, work with your doctor to create one. [...] is to prevent problems before they occur. Do not use your controller medicine to treat an attack that has already started. It does not work fast enough to help. ?? Keep your medicines with you at all times. ?? Talk [...] have had one before, ask your doctor whether you need a second dose. Get a flu shot every fall. If you must be around [...] followed your asthma action plan. ?? You cough up yellow, dark brown, or bloody mucus (sputum). Watch closely for changes in your health, and be sure to contact your doctor if: ?? Your coughing and wheezing get worse. ?? You need to use quick-relief medicine on more than 2 days a week (unless it is just for exercise). ?? You have any problems with your asthma medicine. ?? You need help figuring out what is triggering your asthma attacks. Where can you learn more? Go to www.[employer].net/fahc Enter F084 in the search box to learn more about Asthma Attacks in Adults: After Your Visit. ?? [id number] [email or web address]. Care instructions adapted under license by [facility] This care instruction is for use with your licensed healthcare professional. If you have questions about a medical condition or this instruction, always ask your healthcare professional. [email or web address] disclaims any warranty or liability for your use of this information. Content Version: 8.8.21250; Last Revised: January 12, 2009 documented in this encounter Ordered Prescriptions Prescription Sig Dispensed Refills Start Date End Da te azithromycin (ZITHROMAX) 250 mg tabletIndications:Sinusit is, acute Take 1 Tab by mouth. Take 2 tablets (500 mg) on Day 1, followed by 1 tablet (250 mg) once daily on Days 2 through 5. 6 Tab 0 02/25/2011 04/11/2011 documented in this encounter Progress Notes * Remedios Strong MD - 02/25/2011 3546 EDT Subjective: Patient ID: Cherelle Husain is an 50 y.o. female. Chief Complaint Patient presents with ??? Asthma recheck ??? Back Pain ??? URI sore throat, ear pain, congestion HPI Better now that she has health insurance ([employer]). Still waiting on disability. Pulmicort and accolate were denied and she needs these for her asthma control. Has felt not as well past couple of weeks. Has a lot of sinus pressure, headache, achy and low grade fever. Has had these sx in past when she has a sinus infection. PMH/PSH/Meds/All/FH/SH all reviewed and updated in prism. In counseling. Has gone to the pain clinic. Patient Active Problem List Diagnoses Code ??? [...] to encounter Medication Sig Dispense Refill ??? hydrocodone-acetaminophen (LORTAB;VICODIN) 5-500 mg per tablet Take 1 Tab by mouth 3 times daily for 28 days. 84 Tab 0 ??? citalopram (CELEXA) 20 mg tablet Take 3 Tabs by mouth daily. 90 Each 1 ??? trazodone (DESYREL) 100 mg tablet Take 2 Tabs by mouth. Take 1-2 tabs at bedtime for sleep as needed 60 Tab 1 ??? budesonide (PULMICORT) 200 mcg/Inhalation inhaler Inhale 1 Puff as directed 2 times daily. 1 Inhaler 2 ??? zafirlukast (ACCOLATE) 20 mg tablet Take 1 Tab by mouth 2 times daily. 30 Tab 6 ??? methotrexate 2.5 mg tablet Take 4 Tabs by mouth once a week. 16 Tab 5 ??? acetaminophen (TYLENOL) 650 mg tablet Take 1 Tab by mouth every 4 hours as needed for Pain. ??? metoprolol (LOPRESSOR) 25 mg tablet Take 1 Tab by mouth 2 times daily. 180 Tab 4 ??? ketoconazole (NIZORAL) 2 % cream Apply topically daily. Apply to affect area(s) as directed. 1 Tube 1 ??? loratadine (CLARITIN) 10 mg tablet Take 1 Tab by mouth daily. 30 Tab 11 ??? hydroxychloroquine (PLAQUENIL) 200 mg tablet Take 1 Tab by mouth 2 times daily. 60 Tab 11 ??? omeprazole (PRILOSEC) 20 mg capsule Take [...] are negative. - See HPI Objective: BP 110/60 Pulse 72 Temp 36.4 ??C (97.6 ??F) LMP 03/09/2010 Physical Exam Constitutional: She is oriented to person, place, and time. She appears well- developed and well-nourished. HENT: Right Ear: External ear normal. Left Ear: External ear normal. Nose: Nose normal. Mouth/Throat: Oropharynx is clear and moist. + bilateral maxillary sinus pressure Eyes: Conjunctivae are normal. Neck: Neck supple. No thyromegaly present. Cardiovascular: Normal rate, regular rhythm, normal heart sounds and intact distal pulses. Pulmonary/Chest: Effort normal and breath sounds normal. Unable to do PF adequately because of coughing Abdominal: Soft. Bowel sounds are normal. Musculoskeletal: Normal range of motion. Neurological: She is alert and oriented to person, place, and time. Skin: Skin is warm and dry. Psychiatric: She has a normal mood and affect. Her behavior is normal. Judgment and thought contentnormal. Assessment/plan: Cherelle was seen today for asthma, back pain and uri. Diagnoses and associated orders for this visit: Sinusitis, acute - azithromycin (ZITHROMAX) 250 mg tablet; Take 1 Tab by mouth. Take 2 tablets (500 mg) on Day 1, followed by 1 tablet (250 mg) once daily on Days 2 through 5. Saline lavage F/u if no better or worse Fibromyalgia The current medical regimen is effective; continue present plan and medications. Oa (osteoarthritis) of knee Await verdict from disability Obesity Continue to work on diet/exercise Depression The current medical regimen is effective; continue present plan and medications. Asthma Above Will pursue prior auth for pulmicort and accolate since they have been critical to patien't care ofasthma documented in this encounter Plan of Treatment Not on file documented as of this encounter Visit Diagnoses Diagnosis Sinusitis, acute- Primary Acute sinusitis, unspecified Fibromyalgia Mylagia and myositis, unspecified OA (osteoarthritis) of knee Osteoarthrosis, unspecified whether generalized or localized, lower leg Obesity Obesity, unspecified Depression Depressive disorder, not elsewhere classified Asthma Unspecified asthma documented in this encounter Discontinued Medications Medication Sig Discontinue Reason Start Date End Da te fluticasone-salmeterol (ADVAIR DISKUS) 500-50 mcg/dose diskus inhalerIndications:Ast hma Inhale 1 Puff as directed 2 times daily. Insurance does not cover 01/14/2011 02/25/2011 FOSINOPRIL SODIUM (MONOPRIL ORAL) Take 20 mg by mouth 2 times daily. Pt not sure of dose Patient Stopped Taking 06/22/2010 02/25/2011 pantoprazole (PROTONIX) 40 mg tablet Take 80 mg by mouth daily. Insurance does not cover 02/25/2011 pregabalin (LYRICA) 25 mg capsule Take by mouth. Insurance does not cover 02/25/2011 triamcinolone (NASACORT AQ) 55 mcg nasal inhaler [address] [place] by Nasal route 2 times daily. Insurance does not cover 02/04/2011 02/25/2011 fluticasone (FLONASE) 50 mcg/Actuation nasal spray [address] [place] by Nasal route daily. Insurance does not cover 02/25/2011 documented as of this encounter Care Teams Commercial Director Relationship Specialty Start Date End Date Remedios Mehta MD [address] [place] [phone] PCP - General 02/19/09 01/04/15 documented as of this encounter
--- OUTSIDE RECORDS SUMMARY | 2024-06-24 02:23 | XMS_ITS | Encounter Summary ---
Author Organization [facility] Address [address] [place] [address] Care Team Providers Care Hourly Associate Name Role Phone Remedios Mehta MD Primary Care Provider [phone] Reason for Visit * Reason Onset Date Comments Appointment Related 04/28/2011 Encounter Details Date Type Department Care Team (Late st Contact Info) Description 04/28/[address] [phone] Elizabeth Busch PT Appointment Related Social History Tobacco Use Types [...] encounter Miscellaneous Notes * Telephone Encounter - Dai Plattbeth Reynaldo - 04/28/2011 1334 EDT AQUATIC PHYSICAL THER[facility] [address] [place] [address] A call was placed to Ms. Husain regarding failing to show for aquatic physical therapy appointmenttoday. Patient stated she forgot. Date/time of her next 2 appointments were confirmed with the patient and the phone number to this office was given to patient. documented in this encounter Plan of Treatment Not on file documented as of this encounter Visit Diagnoses Not on filedocumented in this encounter Care Teams Hourly Associate Relationship Specialty Start Date End Date Remedios Mehta MD [address] [place] [phone] PCP - General 02/19/09 01/04/15 documented as of this encounter
--- OUTSIDE RECORDS SUMMARY | 2024-06-24 02:23 | XMS_ITS | Encounter Summary ---
Author Organization [facility] Address [address] [place] [address] Care Team Providers Care Investment Banking Associate Name Role Phone Remedios Mehta MD Primary Care Provider [phone] Reason for Visit * Reason Onset Date Comments Medications Refill 03/04/2011 Encounter Details Date Type Department Care Team (Late st Contact Info) Description 03/04/[address] [address] Remedios Mehta MD [address] [place] [phone] Medications Refill Social History Tobacco Use [...] Da te hydroxychloroquine (PLAQUENIL) 200 mg tabletIndications:Arthropa thy Take 1 Tab by mouth 2 times daily. 90 Tab 1 03/04/2011 05/31/2011 documented in this encounter Miscellaneous Notes * Telephone Encounter - Jaz De Leon - 03/04/2011 1519 EDT Last rf 4.21.11 Last visit 4..11 documented in this encounter Plan of Treatment Not on file documented as of this encounter Visit Diagnoses Diagnosis Arthropathy- Primary Arthropathy, unspecified, site unspecified documented in this encounter Discontinued Medications Medication Sig Discontinue Reason Start Date End Da te hydroxychloroquine (PLAQUENIL) 200 mg tabletIndications:Arthrop athy Take 1 Tab by mouth 2 times daily. Reorder 02/17/2010 03/04/2011 documented as of this encounter Care Teams Investment Banking Associate Relationship Specialty Start Date End Date Remedios Mehta MD [address] [place] [phone] PCP - General 02/19/09 01/04/15 documented as of this encounter
--- OUTSIDE RECORDS SUMMARY | 2024-06-24 02:23 | XMS_ITS | Encounter Summary ---
Author Organization [facility] Address [address] [place] [address] Care Team Providers Care Helper Teacher Name Role Phone Remedios Mehta MD Primary Care Provider [phone] [phone] Reason for Visit * Reason Comments Fibromyalgia Knee Pain right knee,states it feels hot; just started on methotrexate rx'd by Rheum (Dr. Callejas) Encounter Details Date Type Department Care Team (Late st Contact Info) Description 01/14/2011 11:00 EDT Office Visit [address] [address] Remedios Mehta MD [address] [place] [phone] Psoriatic arthritis (CMS-HCC) ([facility]); OA (osteoarthritis) of knee; LBP (low back pain); Depressive disorder; Asthma Social History Tobacco Use Types Packs/Day Years Used Date Smoking Tobacco: Former Comments:quit 20+ yr ago Alcohol Use Standard Drinks/Week Comments Yes 0 (1 standard drink = 0.6 oz pur e alcohol) very occasional Sex and Gender Information Value Date Recorded Sex Assigned at Not on file Gender Identity Female 2021 11:19 EDT Sexual Orientation Not on file documented as of this encounter Last Filed Vital Signs Vital Sign Reading Time Taken Comments Blood Pressure 98/60 01/14/2011 1101 EDT Pulse 80 01/14/2011 1101 EDT Temperature - - Respiratory Rate - - Oxygen Saturation - - Inhaled Oxygen Concentration - - Weight 97.1 kg (214 lb) 01/14/2011 1101 EDT Height - - Body Mass Index 41.79 12/31/2010 0917 EST documented in this encounter Functional Status Cognitive Status Response Date of Assessm ent Because of a physical, menta l, or emotional condition, do you have serious difficulty concentrating, remembering, or making decisions? (5 years old or older) Yes 04/15/2010 documented as of this encounter Ordered Prescriptions Prescription Sig Dispensed Refills Start Date End Da te fluticasone-salmeterol (ADVAIR DISKUS) 500-50 mcg/dose diskus inhalerIndications:Asthma Inhale 1 Puff as directed 2 times daily. 1 Each 5 01/14/2011 02/25/2011 zafirlukast (ACCOLATE) 20 mg tabletIndications:Asthma Take 1 Tab by mouth 2 times daily. 30 Tab 6 01/14/2011 09/19/2011 documented in this encounter Progress Notes * Remedios Strong MD - 01/14/2011 1356 EDT Subjective: Patient ID: Cherelle Husain is an 50 y.o. female. Chief Complaint Patient presents with ??? Fibromyalgia ??? Knee Pain right knee,states it feels hot; just started on methotrexate rx'd by Rheum (Dr. Callejas) HPI Chart reviewed - note from rheum visit. Cherelle reports she is feeling less depressed since being on citalopram. She is meeting with disability next week. She is hopeful with the warmer weather to have her mood improve more. Can't afford gas except for the essentials so feels stuck at home mostly but with better weather will try and do more walking. Knee pain and back pain has been excruciating. Dr. Callejas thinks she has psoriatic arthritis. Started her on methotrexate which for the most part she is tolerating. Patient Active Problem List Diagnoses Code ??? [...] Dispense Refill ??? methotrexate 2.5 mg tablet Take 4 Tabs by mouth once a week. 16 Tab 5 ??? tramadol (ULTRAM) 50 mg tablet Take 50 mg by mouth every 6 hours as needed. ??? citalopram (CELEXA) 40 mg tablet Take 1 Tab by mouth daily. 90 Tab 3 ??? pantoprazole (PROTONIX) 40 mg tablet Take 80 mg by mouth daily. ??? fluticasone (FLONASE) 50 mcg/Actuation nasal spray 1 [place] by Nasal route daily. ??? pregabalin (LYRICA) 25 mg capsule Take by mouth. ??? hydrocodone-acetaminophen (LORTAB;VICODIN) 5-500 mg per tablet Take 1 Tab by mouth 3 times daily. 90 Tab 3 ??? trazodone (DESYREL) 100 mg tablet Take 1 Tab by mouth at bedtime. 30 Tab 11 ??? acetaminophen (TYLENOL) 650 mg tablet Take 1 Tab by mouth every 4 hours as needed for Pain. ??? FOSINOPRIL SODIUM (MONOPRIL ORAL) Take 20 mg by mouth 2 times daily. Pt not sure of dose ??? metoprolol (LOPRESSOR) 25 mg tablet Take [...] Smoking status: Former Smoker ??? Smokeless tobacco: Not on file Comment: quit 20+ yr ago ??? Alcohol Use: Yes very occasional Review of Systems All other systems reviewed and are negative. - See HPI Objective: BP 98/60 Pulse 80 Wt 97.07 kg (214 lb) LMP 03/09/2010 Physical Exam Constitutional: She appears well-developed and well-nourished. HENT: Mouth/Throat: Oropharynx is clear and moist. Eyes: Conjunctivae are normal. Cardiovascular: Normal rate, regular rhythm and normal heart sounds. Pulmonary/Chest: Effort normal and breath sounds normal. Musculoskeletal: Right knee swollen with an effusion; slightly warmer to touch than left knee Psychiatric: Less depressed; no SI/HI; anxious; good eye contact Assessment: 50 yo woman with debilitating pain from psoriatic arthritis - appropriately seeking disability; asthma - controlled but challenged by not having insurance; depression - chronic and recently worsened,better now on citalopram Plan: Cherelle was seen today for fibromyalgia and knee pain. Diagnoses and associated orders for this visit: Psoriatic arthritis Continue with methotrexate per rheum Monitor lfts and cbc periodically while on methotrexate Oa (osteoarthritis) of knee Lbp (low back pain) Depressive disorder Continue citalopram Counseling when [employer] activated F/u 1 month Asthma - zafirlukast (ACCOLATE) 20 mg tablet; Take 1 Tab by mouth 2 times daily. - fluticasone-salmeterol (ADVAIR DISKUS) 500-50 mcg/dose diskus inhaler; Inhale 1 Puff as directed 2 times daily. documented in this encounter Plan of Treatment Not on file documented as of this encounter Visit Diagnoses Diagnosis Psoriatic arthritis ([facility]) Psoriatic arthropathy OA (osteoarthritis) of knee Osteoarthrosis, unspecified whether generalized or localized, lower leg LBP (low back pain) Lumbago Depressive disorder Depressive disorder, not elsewhere classified Asthma Unspecified asthma documented in this encounter Discontinued Medications Medication Sig Discontinue Reason Start Date End Da te zafirlukast (ACCOLATE) 20 mg tablet Take 20 mg by mouth 2 times daily. Reorder 01/14/2011 fluticasone-salmeterol (ADVAIR DISKUS) 500-50 mcg/Dose diskus inhaler Inhale 1 Puff as directed 2 times daily. Reorder 02/03/2010 01/14/2011 documented as of this encounter Care Teams Helper Teacher Relationship Specialty Start Date End Date Remedios Mehta MD [address] [place] [phone] PCP - General 02/19/09 01/04/15 documented as of this encounter
--- OUTSIDE RECORDS SUMMARY | 2024-06-24 02:23 | XMS_ITS | Encounter Summary ---
Author Organization [facility] Address [address] [place] [address] Care Team Providers Care Candy Counter Clerk Name Role Phone Remedios Mehta MD Primary Care Provider [phone] Reason for Visit * Reason Comments Knee Pain s/p rigt total knee arthroplasty manipulation 08.05.10 Encounter Details Date Type Department Care Team (Late st Contact Info) Description 08/16/2010 11:20 EDT Office Visit [facility] Total Joint Program - [address] [place], [place] [phone] Yonathan Moreland MD Osteoarth NOS-l/leg (Primary Dx) Social History Tobacco Use Types [...] * Patient Instructions* Yonathan Moreland MD - 08/16/2010 12:06 EDT 1) Remember to take oral antibiotics one hour prior to dental procedures 2) Continue with your home exercise regimen 3) Avoid high-impact recreational activities (running, jumping) to the extent you can. 4) Return for surveillance follow-up visit as recommended (history review, focused physical examination and new x-rays) documented in this encounter Progress Notes * Yonathan Moreland MD - 08/22/2010 1534 EDT [facility]OP[facility] PROGRESS/FOLLOWUP NOTE - 08/16/2010 PROBLEM: Status post right knee total knee arthroplasty, with postoperative stiffness and manipulation under anesthesia 08/15/10. SUBJECTIVE: Cherelle returns pleased with the decreased pain and increased range of motion. The findings at that time the manipulation discussed as well as the corticosteroid effect discussed. OBJECTIVE: Extension 0, flexion 95 degrees. Her knee is stable to varus, valgus, anterior, posterior stress, with 5/5 extension and flexion strength. No palpable Hall's cyst posteriorly in the knee. 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 PLAN: Mobilize now with home self-directed therapeutic exercise program with outpatient skilled PT on a continuing basis, tapering as needed. Discontinue use of CPM. Return to full-time, full-duty work at her usual work capacity. Electronically Signed by Yonathan Moreland MD 08/22/2010 15:34 Yonathan Moreland MD - Yonathan Moreland MD - Job ID: SM Doc ID: [id number] Ext Doc ID: [id number] cc: * Yonathan Moreland MD - 08/16/2010 1206 EDT [facility] encounter documentation completed both in PRISM andvia dictated note. Please refer to dictated note for details. Yonathan Moreland M.D. documented in this encounter Plan of Treatment Not on file documented as of this encounter Visit Diagnoses Diagnosis Osteoarthrosis, unspecified whether generalized or localized, lower leg- Primary documented in this encounter Discontinued Medications Medication Sig Discontinue Reason Start Date End Da te enoxaparin (LOVENOX) 30 mg/0.3 mL injection Inject 0.3 mL into the skin 2 times daily. 07/30/2010 08/16/2010 documented as of this encounter Care Teams Candy Counter Clerk Relationship Specialty Start Date End Date Remedios Mehta MD [address] [place] [phone] PCP - General 02/19/09 01/04/15 documented as of this encounter
--- OUTSIDE RECORDS SUMMARY | 2024-06-24 02:23 | XMS_ITS | Encounter Summary ---
Author Organization [facility] Address [address] [place] [address] Care Team Providers Care Special Education Assistant Name Role Phone Remedios Mehta MD Primary Care Provider [phone] Encounter Details Date Type Department Care Team (Latest Contact Info) Description 04/26/2011 10:03 EDT - 04/26/2011 23:59 EDT Hospital Encounter [facility] - Other [address] [place] [address] Remedios Mehta MD [address] [place] [phone] Discharge Disposition: Home or Self Care [...] times daily. 08/01/2012 citalopram (CELEXA) 20 mg tabletIndications:Depre ssion, major Take 3 Tabs by mouth daily. 90 Each 1 02/17/2011 06/08/2011 fluticasone (FLONASE) 50 mcg/Actuation nasal spray 1 [place] by Nasal route daily. 1 Bottle 5 03/17/2011 07/16/2012 hydrocodone-acetaminoph en (LORTAB;VICODIN) 5-500 mg per tablet Take 1 Tab by mouth every 4 hours. 06/08/2011 hydroxychloroquine (PLAQUENIL) 200 mg tabletIndications:Arthr opathy Take 1 Tab by mouth 2 times daily. 90 Tab 1 03/04/2011 05/31/2011 ketoconazole (NIZORAL) 2 % creamIndications:Rash Apply topically daily. Apply to affect area(s) as directed. 1 Tube 1 02/17/2010 04/18/2021 loratadine (CLARITIN) 10 mg tabletIndications:Aller gic rhinitis Take 1 Tab by mouth daily. 30 Tab 11 02/17/2010 06/08/2011 lorazepam (ATIVAN) 0.5 mg Tab Take 0.5 mg by mouth as needed. 03/05/2012 methotrexate 2.5 mg tabletIndications:Unspe cified inflammatory polyarthropathy Take 4 Tabs by mouth once a week. 16 Tab 5 12/31/2010 07/05/2011 metoprolol (LOPRESSOR) 25 mg tabletIndications:Hyper tension Take 1 Tab by mouth 2 times daily. 180 Tab 4 03/30/2011 04/04/2012 omeprazole (PRILOSEC) 20 mg capsule Take 1 Cap by mouth 2 times daily. dose increase 60 Cap 3 02/03/2010 07/12/2011 pregabalin (LYRICA) 25 mg capsule Take 1 Cap by mouth at bedtime. 30 Cap 2 04/11/2011 07/06/2011 trazodone (DESYREL) 100 mg tabletIndications:Myalg ia and myositis,Arthropathy Take 2 Tabs by mouth. Take 1-2 tabs at bedtime for sleep as needed 60 Tab 1 02/17/2011 05/31/2011 zafirlukast (ACCOLATE) 20 mg tabletIndications:Asthm a Take 1 Tab by mouth 2 times daily. 30 Tab 6 01/14/2011 09/19/2011 documented as of this encounter Discharge Disposition Disposition Code Departure Means Destination Home or Self Skilled Nursing documented in this encounter Plan of Treatment Not on file documented as of this encounter Visit Diagnoses Not on filedocumented in this encounter Care Teams Special Education Assistant Relationship Specialty Start Date End Date Remedios Mehta MD [address] [place] [phone] PCP - General 02/19/09 01/04/15 documented as of this encounter
--- OUTSIDE RECORDS SUMMARY | 2024-06-24 02:23 | XMS_ITS | Encounter Summary ---
Author Organization [facility] Address [address] [place] [address] Care Team Providers Care Heel Finisher Name Role Phone Remedios Mehat MD Primary Care Provider [phone] Reason for Visit * Reason Onset Date Comments Appointment Related 05/03/2011 Encounter Details Date Type Department Care Team (Late st Contact Info) Description 05/03/[address] [address] Kailyn Winston PT Appointment Related Social History Tobacco Use [...] encounter Miscellaneous Notes * Telephone Encounter - Kailyn Winston - 05/03/2011 1234 EDT [facility] [address] [place] [address] Physical Therapy Contact Note Cherelle called in response to a voice mail from us checking to see why she had failed to show for today's appointment after a reminder call last and also to let her know that if she did not come to 's appointment we would cancel the rest of her scheduled PT appointments per our attendance policy. Cherelle apologized and said that she thought today was Monday - I'm not having a very good time with my remembering these days. Cherelle stated that she would be in for her 05/05 appointment. KAILYN WINSTON, PT 05/03/2011 12:23 documented in this encounter Plan of Treatment Not on file documented as of this encounter Visit Diagnoses Not on filedocumented in this encounter Care Teams Heel Finisher Relationship Specialty Start Date End Date Remedios Mehta MD [address] [place] [phone] PCP - General 02/19/09 01/04/15 documented as of this encounter
--- OUTSIDE RECORDS SUMMARY | 2024-06-24 02:23 | XMS_ITS | Encounter Summary ---
Author Organization [facility] Address [address] [place] [address] Care Team Providers Care Carpenter Helper Maintenance Name Role Phone Remedios Mehta MD Primary Care Provider [phone] Reason for Visit * Reason Onset Date Comments Pain 10/13/2010 HAVING A FLAIR U P Encounter Details Date Type Department Care Team (Late st Contact Info) Description 10/13/2010 Telephone [facility] Rheumatology & Immunology - [facility] [address] [place] [address] Yovana Callejas MD [address] [place] [address] [phone] Pain (HAVING A FLAIR UP) Social History Tobacco Use Types Packs/Day Years [...] encounter Miscellaneous Notes * Telephone Encounter - Olga Lidia Verdugo RN - 10/13/2010 1549 EST Pt aware that unable to treat over the phone. Will place on wait list and if needed pt can see PCP until being seen. * Telephone Encounter - Yovana Callejas MD - 10/13/2010 1524 EST Needs a follow up appointment. Cannot treat over the phone * Telephone Encounter - Olga Lidia Verdugo RN - 10/13/2010 1403 EST Pt has been having back, hip and generalized joint pain in hands and feet with some tingling. Pt fell a couple weeks ago and thinks this has caused a flare of her fibromyalgia. Pt would like to know what to do for pain. Has taken Tylenol but not helping. Pt brought up other multiple complaints of fatigue and headaches, which I informed pt could be discussed at next follow up. documented in this encounter Plan of Treatment Not on file documented as of this encounter Visit Diagnoses Not on filedocumented in this encounter Care Teams Carpenter Helper Maintenance Relationship Specialty Start Date End Date Remedios Mehta MD [address] [place] [phone] PCP - General 02/19/09 01/04/15 documented as of this encounter
--- OUTSIDE RECORDS SUMMARY | 2024-06-24 02:23 | XMS_ITS | Encounter Summary ---
Author Organization [facility] Address [address] [place] [address] Care Team Providers Care Concrete Truck Driver Name Role Phone Remedios Mehta MD Primary Care Provider [phone] Encounter Details Date Type Department Care Team (Latest Contact Info) Description 05/05/2011 9:56 EDT - 05/05/2011 23:59 EDT Hospital Encounter [facility] - Other [address] [place] [address] Remedios Mehta MD [address] [place] [phone] Discharge Disposition: Home or Self Care [...] fluticasone (FLONASE) 50 mcg/Actuation nasal spray 1 [place] by Nasal route daily. 1 Bottle 5 [...] on filedocumented in this encounter Care Teams Concrete Truck Driver Relationship Specialty Start Date End Date Remedios Mehta MD [address] [place] [phone] PCP - General 02/19/09 01/04/15 documented as of this encounter
--- OUTSIDE RECORDS SUMMARY | 2024-06-24 02:23 | XMS_ITS | Encounter Summary ---
Author Organization [facility] Address [address] [place] [address] Care Team Providers Care Thin Film Technician Name Role Phone Remedios Mehta MD Primary Care Provider [phone] Encounter Details Date Type Department Care Team (Latest Contact Info) Description 08/09/2010 12:50 EDT - 08/09/2010 23:59 EDT Hospital Encounter [facility] - [address] [place] [address] Yonathan Moreland MD Discharge Disposition: Home or Self Care [...] as directed as needed for Wheezing. 08/29/2012 albuterol-ipratropiu m (DUONEB) 0.5-2.5 mg/3 mL nebulizer solution Take 3 mL by nebulization every 4 hours as needed for Wheezing. 06/04/2012 CALCIUM CARBONATE/VITAMIN D3 (CALCIUM 600 WITH VITAMIN D3 ORAL) Take 600 mg by mouth 2 times daily. 08/01/2012 docusate sodium (COLACE) 100 mg capsule Take 2 Caps by mouth 2 times daily. 04/20/2010 09/27/2010 duloxetine (CYMBALTA) 20 mg capsule Take 20 mg by mouth 2 times daily. 09/27/2010 11/08/2010 enoxaparin (LOVENOX) 30 mg/0.3 mL injection Inject 0.3 mL into the skin 2 times daily. 14 Syringe 1 07/30/2010 08/16/2010 fluticasone-salmeter ol (ADVAIR DISKUS) 500-50 mcg/Dose diskus inhaler Inhale 1 Puff as directed 2 times daily. 1 Each 5 02/03/2010 01/14/2011 FOSINOPRIL SODIUM (MONOPRIL ORAL) Take 20 mg by mouth 2 times daily. Pt not sure of dose 06/22/2010 02/25/2011 hydrocodone-acetamin ophen (LORTAB;VICODIN) 5-500 mg per tablet Take 1-2 Tabs by mouth. TAKE 1-2 TABS PO EVERY 4-6 HOURS PRN PAIN 40 Tab 0 06/14/2010 10/14/2010 hydroxychloroquine (PLAQUENIL) 200 mg tabletIndications:Ar thropathy Take 1 Tab by mouth 2 times daily. 60 Tab 11 02/17/2010 03/04/2011 ketoconazole (NIZORAL) 2 % creamIndications:Jace h Apply topically daily. Apply to affect area(s) as directed. 1 Tube 1 02/17/2010 04/18/2021 loratadine (CLARITIN) 10 mg tabletIndications:Al lergic rhinitis Take 1 Tab by mouth daily. 30 Tab 11 02/17/2010 06/08/2011 lorazepam (ATIVAN) 0.5 mg Tab Take 0.5 mg by mouth as needed. 03/05/2012 methocarbamol (ROBAXIN) 500 mg tablet Take 1-2 Tabs by mouth every 6 hours as needed (muscle spasms). 60 Tab 0 07/13/2010 10/14/2010 metoprolol (LOPRESSOR) 25 mg tabletIndications:Hy pertension Take 1 Tab by mouth 2 times daily. 180 Tab 4 03/10/2010 03/30/2011 omeprazole (PRILOSEC) 20 mg capsule Take 1 Cap by mouth 2 times daily. dose increase 60 Cap 3 02/03/2010 07/12/2011 PEG 3350-Electrolytes (MIRALAX) 17 gram packet Take 17 g by mouth as needed. 09/27/2010 10/14/2010 trazodone (DESYREL) 100 mg tabletIndications:My algia and myositis,Arthropathy Take 1 Tab by mouth at bedtime. 30 Tab 11 06/28/2010 02/17/2011 zafirlukast (ACCOLATE) 20 mg tablet Take 20 mg by mouth 2 times daily. 01/14/2011 documented as of this encounter Discharge Disposition Disposition Code Departure Means Destination Home or Self Jail documented in this encounter Progress Notes * Inpatient, Physician - 08/09/2010 0000 EDT documented in this encounter Plan of Treatment Not on file documented as of this encounter Visit Diagnoses Not on filedocumented in this encounter Care Teams Thin Film Technician Relationship Specialty Start Date End Date Remedios Mehta MD [address] [place] [phone] PCP - General 02/19/09 01/04/15 documented as of this encounter
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
--- OUTSIDE RECORDS SUMMARY | 2024-06-24 02:23 | XMS_ITS | Encounter Summary ---
Author Organization [facility] Address [address] [place] [address] Care Team Providers Care Home Care Chaplain Name Role Phone Remedios Mehta MD Primary Care Provider [phone] Reason for Visit * Reason Onset Date Comments Medications Refill 05/31/2011 Encounter Details Date Type Department Care Team (Late st Contact Info) Description 05/31/[address] [address] Remedios Mehta MD [address] [place] [phone] Medications Refill Social History Tobacco Use [...] times daily. 180 Tab 1 05/31/2011 11/18/2011 documented in this encounter Miscellaneous Notes * Telephone Encounter - [place] - 05/31/2011 0835 EDT Last rx 03/04/11 #90 1 refill Last appt 04/15/11 Next appt 07/06/11 documented in this encounter Plan of Treatment Not on file documented as of this encounter Visit Diagnoses Diagnosis Arthropathy- Primary Arthropathy, unspecified, site unspecified documented in this encounter Discontinued Medications Medication Sig Discontinue Reason Start Date End Da te hydroxychloroquine (PLAQUENIL) 200 mg tabletIndications:Arthrop athy Take 1 Tab by mouth 2 times daily. Reorder 03/04/2011 05/31/2011 documented as of this encounter Care Teams Home Care Chaplain Relationship Specialty Start Date End Date Remedios Mehta MD [address] [place] [phone] PCP - General 02/19/09 01/04/15 documented as of this encounter
--- OUTSIDE RECORDS SUMMARY | 2024-06-24 02:23 | XMS_ITS | Encounter Summary ---
Author Organization [facility] Address [address] [place] [address] Care Team Providers Care Life Guard Name Role Phone Remedios Mehta MD Primary Care Provider [phone] [phone] Reason for Visit * Reason Onset Date Comments Medications Refill 03/17/2011 Encounter Details Date Type Department Care Team (Late st Contact Info) Description 03/17/[address] [address] Remedios Mehta MD [address] [place] [phone] Medications Refill Social History Tobacco Use [...] Dispensed Refills Start Date End Da te budesonide-formoterol (SYMBICORT) 80-4.5 mcg/Actuation HFAA inhaler Inhale 2 Puffs as directed 2 times daily. 1 Inhaler 5 03/17/2011 07/16/2012 fluticasone (FLONASE) 50 mcg/Actuation nasal spray 1 [place] by Nasal route daily. 1 Bottle 5 03/17/2011 07/16/2012 documented in this encounter Miscellaneous Notes * Telephone Encounter - Tessa Spears - 03/17/2011 0950 EDT Patients insurance will not cover advair or nasacort. Will cover Symbicort and Flonase. Please clarify with Dr. Strong dosage and strength. Patient is aware. documented in this encounter Plan of Treatment Not on file documented as of this encounter Visit Diagnoses Not on filedocumented in this encounter Care Teams Life Guard Relationship Specialty Start Date End Date Remedios Mehta MD [address] [place] [phone] PCP - General 02/19/09 01/04/15 documented as of this encounter
--- OUTSIDE RECORDS SUMMARY | 2024-06-24 02:23 | XMS_ITS | Encounter Summary ---
Author Organization [facility] Address [address] [place] [address] Care Team Providers Care Table Hand Name Role Phone Remedios Mehta MD Primary Care Provider [phone] [phone] Reason for Visit * Reason Comments Depression Pain back,legs,shoulders Encounter Details Date Type Department Care Team (Late st Contact Info) Description 12/15/2010 14:45 EST Office Visit [address] [address] Remedios Mehta MD [address] [place] [phone] Arthropathy; Asthma; Depressive disorder; Obesity; Fibromyalgia; LBP (low back pain); Depression Social History Tobacco Use Types Packs/Day Years [...] Sign Reading Time Taken Comments Blood Pressure 102/60 12/15/2010 1452 EST Pulse 60 12/15/2010 1452 EST Temperature - - Respiratory Rate - - Oxygen Saturation - - Inhaled Oxygen Concentration - - Weight 99.3 kg (219 lb) 12/15/2010 1452 EST Height - - Body Mass Index 42.77 12/02/2010 1412 EST documented in this encounter Functional Status Cognitive Status Response Date of Assessm ent Because of a physical, menta l, or emotional condition, do you have serious difficulty concentrating, remembering, or making decisions? (5 years old or older) Yes 04/15/2010 documented as of this encounter Ordered Prescriptions Prescription Sig Dispensed Refills Start Date End Da te citalopram (CELEXA) 40 mg tabletIndications:Depressi on Take 1 Tab by mouth daily. 90 Tab 3 12/15/2010 02/17/2011 documented in this encounter Progress Notes * Remedios Strong MD - 12/16/20102050 EST Subjective: Patient ID: Cherelle Husain is an 50 y.o. female. Chief Complaint Patient presents with ??? Depression ??? Pain back,legs,shoulders HPI Cherelle reports significant pain everywhere. Saw Dr. Callejas who feels her fibromyalgia was exacerbated by not being able to afford her lyrica and other medicatoins for chronic pain. Pt also reports continued stress over finances, unemployment which to her exacerbates her pain. Dr. Callejas prescribed tramadol which helped but is too expensive. Pt plans to apply for disability. Her knees continue to ache and throb with any activity. She finds it very discouraging because she knows she also needs more exercise. Citalopram has helped but she is only on 20 mg and still dealing with negative thoughts and anxiety. Denies SI/HI. Wonders if we can increase her citalopram. Patient Active Problem List Diagnoses Code ??? [...] to encounter Medication Sig Dispense Refill ??? pantoprazole (PROTONIX) 40 mg tablet Take 80 mg by mouth daily. ??? fluticasone (FLONASE) 50 mcg/Actuation nasal spray 1 [place] by Nasal route daily. ??? pregabalin (LYRICA) [...] 2 times daily. 60 Tab 11 ??? fluticasone-salmeterol (ADVAIR DISKUS) 500-50 mcg/Dose diskus inhaler Inhale 1 Puff as directed2 times daily. 1 Each 5 ??? omeprazole (PRILOSEC) 20 mg capsule Take 1 Cap by mouth 2 times daily. dose increase 60 Cap 3 ??? lorazepam (ATIVAN) 0.5 mg Tab Take 0.5 mg by mouth as needed. ??? lubiprostone (AMITIZA) 24 mcg capsule Take 24 mcg by mouth as needed. ??? zafirlukast (ACCOLATE) 20 mg tablet Take 20 mg by mouth 2 times daily. ??? albuterol (PROVENTIL, VENTOLIN) 90 mcg/Actuation inhaler [...] Use: Yes very occasional Review of Systems Respiratory: Negative for shortness of breath. Cardiovascular: Negative for chest pain. Musculoskeletal: Positive for myalgias and joint pain. Psychiatric/Behavioral: Positive for depression. Negative for suicidal ideas and substance abuse. The patient is nervous/anxious and has insomnia. - See HPI Objective: BP 102/60 Pulse 60 Wt 99.338 kg (219 lb) LMP 03/09/2010 Physical Exam Constitutional: She appears well-developed and well-nourished. HENT: Right Ear: External ear normal. Left Ear: External ear normal. Mouth/Throat: Oropharynx is clear and moist. Eyes: Conjunctivae are normal. Neck: Normal range of motion. Neck supple. Cardiovascular: Normal rate, regular rhythm, normal heart sounds and intact distal pulses. Pulmonary/Chest: Effort normal and breath sounds normal. Abdominal: Soft. Bowel sounds are normal. Musculoskeletal: Normal range of motion. Skin: Skin is warm and dry. Psychiatric: Her behavior is normal. Anxious but less depressed than previous recent visits. Assessment: 50 yo woman with fibromyalgia, obesity, OA, social stressors, depression, anxiety Plan: Cherelle was seen today for depression and pain. Diagnoses and associated orders for this visit: Arthropathy PT recommended but patient can not afford co pays or gas to get there - she will possibly reconsider if she gets unemployment Asthma Continue current regimen Obesity Encourage healthy eating and more exercise Fibromyalgia/Lbp (low back pain) Depression - citalopram - increase to 40 mg Referred for counseling documented in this encounter Plan of Treatment Not on file documented as of this encounter Visit Diagnoses Diagnosis Arthropathy Arthropathy, unspecified, site unspecified Asthma Unspecified asthma Depressive disorder Depressive disorder, not elsewhere classified Obesity Obesity, unspecified Fibromyalgia Mylagia and myositis, unspecified LBP (low back pain) Lumbago Depression Depressive disorder, not elsewhere classified documented in this encounter Discontinued Medications Medication Sig Discontinue Reason Start Date End Da te citalopram (CELEXA) 20 mg tabletIndications:Depress ion Take 1 Tab by mouth daily. 11/08/2010 12/15/2010 documented as of this encounter Historical Medications * This list may reflect changes made after this encounter. Medication Sig Dispensed Refills Start Date End Date tramadol (ULTRAM) 50 mg tablet Take 50 mg by mouth every 6 hours as needed. 02/17/2011 added in this encounter Care Teams Table Hand Relationship Specialty Start Date End Date Remedios Mehta MD [address] [place] [phone] PCP - General 02/19/09 01/04/15 documented as of this encounter
--- OUTSIDE RECORDS SUMMARY | 2024-06-24 02:23 | XMS_ITS | Encounter Summary ---
Author Organization [facility] Address [address] [place] [address] Care Team Providers Care Drier Attendant Name Role Phone Remedios eMhta MD Primary Care Provider [phone] Reason for Visit * Reason Comments Knee Pain s/p right total knee replacment 6.17.10 Encounter Details Date Type Department Care Team (Late st Contact Info) Description 12/10/2010 9:20 EST Office Visit [facility] Total Joint Program - [address] [place], [place] [id number] Yonathan Moreland MD Fibromyalgia; OA (osteoarthritis) of knee Discharge Disposition: Auto Discharge Social History [...] * Patient Instructions* Yonathan Moreland MD - 12/12/2010 10:37 EST 1) Remember to take oral antibiotics one hour prior to dental procedures 2) Continue with your home exercise regimen 3) Avoid high-impact recreational activities (running, jumping) to the extent you can. 4) Return for surveillance follow-up visit as recommended (history review, focused physical examination and new x-rays) documented in this encounter Discharge Disposition Disposition Code Departure Means Destination Auto Discharge documented in this encounter Progress Notes * Yonathan Moreland MD - 12/12/2010 1025 EST TOTAL HIP REPLACEMENT (Surveillance follow up) Chief Complaint Patient presents with ??? Knee Pain s/p right total knee replacment 04.15.10 HPI: Cherelle Husain is a 50 y.o. female who returns here today as an established patient with her only complaint being limited flexion motion following right knee replacement 8 months ago here at [facility]. Overall she is doing reasonably well limited only to one stair at a time. Had a negative ultrasound in Sep after f/u OV with Dr. Napoles in my absence. No longer reporting posterior knee pain or swellingsense. Previous office notes and relevant imaging studies were reviewed. Past Medical History Diagnosis Date ??? Fibromyalgia ??? Obesity ??? Asthma ??? Depression ??? Anxiety ??? GERD (gastroesophageal reflux disease) ??? Fibromyalgia ??? confirmed 1979,1982 2 vaginal deliveries Past Surgical History Procedure Date ??? Appendectomy ??? Hernia repair ??? Carpal tunnel release 22 years ago right endoscopic by dr. Hamilton ??? Joint replacement 04/15/2010 Right TKR ([place]) Current outpatient prescriptions ordered prior to encounter Medication Sig Dispense Refill ??? pantoprazole (PROTONIX) 40 mg tablet Take 80 mg by mouth daily. ??? fluticasone (FLONASE) 50 mcg/Actuation nasal spray 1 [place] by Nasal route daily. ??? pregabalin (LYRICA) 25 mg capsule Take by mouth. ??? hydrocodone-acetaminophen (LORTAB;VICODIN) 5-500 mg per tablet Take 1 Tab by mouth 3 times daily. 90 Tab 3 ??? citalopram (CELEXA) 20 mg tablet Take 1 Tab by mouth daily. 90 Tab 3 ??? trazodone (DESYREL) [...] every 4 hours as needed for Wheezing. PHYSICAL EXAM: She is well appearing and in no acute distress. Vitals signs and pain report reviewed. VAS 2/10 Physical exam: General: Well-appearing female in no acute distress. Mood and affect appropriate. A and O x3. Arises from seated position without pain, normal station with level pelvis in standing position. Lumbar spine normal to inspection, palpation and motion Bilateral lower extremities show equal motion of the hips and ankles. RIGHT KNEE: Skin: Healthy appearing mobile incision Rightknee exam shows 0 to 108 motion. Manual muscle testing: Knee extension 5/5 and knee flexion 5/5 Stability testing shows no instability to AP or varus-valgus stress. No mal-alignment. No effusion. Mild patellofemoral crepitus. No pain to palpation of the medial joint line. No pain to palpation of the patellar tendon.. IMAGING STUDY REVIEW: WB Bilat AP knees and lateral view today @ [facility]: personally reviewed these films which demonstrate aclass I cement mantel around appropriately aligned tibial, femoral and patellar components. ASSESSMENT: right total knee replacement, 8 months ago with stiffness following surgery improved with ERICA and corticosteroid injection X 1. Patient Active Problem List Diagnoses Code ??? [...] ??? Hypercoagulation syndrome 289.81AA ??? Fibromyalgia 729.1AV PLAN: Patient Education: The patient was instructed [...] follow up for routine surveillance as arranged. documented in this encounter Plan of Treatment Not on file documented as of this encounter Visit Diagnoses Diagnosis Fibromyalgia Mylagia and myositis, unspecified OA (osteoarthritis) of knee Osteoarthrosis, unspecified whether generalized or localized, lower leg documented in this encounter Care Teams Drier Attendant Relationship Specialty Start Date End Date Remedios Mehta MD [address] [place] [phone] PCP - General 02/19/09 01/04/15 documented as of this encounter
--- OUTSIDE RECORDS SUMMARY | 2024-06-24 02:23 | XMS_ITS | Encounter Summary ---
Author Organization [facility] Address [address] [place] [address] Care Team Providers Care Air Route Controller Name Role Phone Remedios Mehta MD Primary Care Provider [phone] [phone] Reason for Visit * Reason Onset Date Comments Other 11/16/2010 dr. Johansen appt Encounter Details Date Type Department Care Team (Late st Contact Info) Description 11/16/2010 Telephone [facility] - [address] [address] Remedios Mehta MD [address] [place] [phone] Other (dr. Johansen appt) Social History Tobacco Use Types Packs/Day Years [...] * Telephone Encounter - Arlen Pollock - 11/16/2010 1128 EST PT does not have ins so she cant make the appt with Dr. Pacheco. Financial services told her she would have to fill out another form and reapply with $250 for the copay And she does not have the money. She wanted you too know. documented in this encounter Plan of Treatment Not on file documented as of this encounter Visit Diagnoses Not on filedocumented in this encounter Care Teams Air Route Controller Relationship Specialty Start Date End Date Remedios Mehta MD [address] [place] [phone] PCP - General 02/19/09 01/04/15 documented as of this encounter
--- OUTSIDE RECORDS SUMMARY | 2024-06-24 02:23 | XMS_ITS | Encounter Summary ---
Author Organization [facility] Address [address] [place] [address] Care Team Providers Care Freight Inspector Name Role Phone Remedios Mehta MD Primary Care Provider + -[phone] Reason for Visit * Reason Onset Date Comments Appointment Related 08/11/2010 Encounter Details Date Type Department Care Team (Late st Contact Info) Description 08/11/[address] [facility] Rehabilitation Therapy - [facility] [address] [place] [address] Apolinar William, PT [address] [facility] [address] [place] [phone] Appointment Related Social History Tobacco Use Types [...] encounter Miscellaneous Notes * Telephone Encounter - Barcenas Roseline - 08/11/2010 1002 EDT PATIENT CALLED TO CANCEL APPT, WAITING ON INSURANCE PAPERWORK. Juan 08/11/10 documented in this encounter Plan of Treatment Not on file documented as of this encounter Visit Diagnoses Not on filedocumented in this encounter Care Teams Freight Inspector Relationship Specialty Start Date End Date Remedios Mehta MD [address] [place] [phone] PCP - General 02/19/09 01/04/15 documented as of this encounter
--- OUTSIDE RECORDS SUMMARY | 2024-06-24 02:23 | XMS_ITS | Encounter Summary ---
Author Organization [facility] Address [address] [place] [address] Care Team Providers Care Beef Specialist Name Role Phone Remedios Mehta MD Primary Care Provider [phone] [phone] Reason for Visit * Reason Onset Date Comments Medications Refill 02/01/2011 Encounter Details Date Type Department Care Team (Late st Contact Info) Description 02/01/[address] [address] Remedios Mehta MD [address] [place] [phone] Medications Refill Social History Tobacco Use [...] daily for 28 days. 84 Tab 0 02/01/2011 03/01/2011 documented in this encounter Miscellaneous Notes * Telephone Encounter - Ivy Reveles RN - 02/02/2011 1242 EDT NOT DUE TILL * Telephone Encounter - Jaz De Leon - 02/01/2011 1229 EDT DISPENSE 90 TABS;3 RF'S CALLING IN [place] 4.29.11 * Telephone Encounter - Jaz De Leon - 02/01/2011 1219 EDT Last rf 2.3.11 documented in this encounter Plan of Treatment Not on file documented as of this encounter Visit Diagnoses Not on filedocumented in this encounter Discontinued Medications Medication Sig Discontinue Reason Start Date End Da te hydrocodone-acetaminophen (LORTAB;VICODIN) 5-500 mg per tablet Take 1 Tab by mouth 3 times daily. Reorder 12/02/2010 02/01/2011 documented as of this encounter Care Teams Beef Specialist Relationship Specialty Start Date End Date Remedios Mehta MD [address] [place] [phone] PCP - General 02/19/09 01/04/15 documented as of this encounter
--- OUTSIDE RECORDS SUMMARY | 2024-06-24 02:23 | XMS_ITS | Encounter Summary ---
Author Organization [facility] Address [address] [place] [address] Care Team Providers Care Assistant County Attorney Name Role Phone Remedios Mehta MD Primary Care Provider [phone] [phone] Reason for Visit * Reason Onset Date Comments Other 08/23/2010 Pt states havin g problems didn't give anymore info Encounter Details Date Type Department Care Team (Late st Contact Info) Description 08/23/2010 Telephone [facility] - [facility] [address] [place] [address] Yovana Callejas MD [address] [place] [address] [phone] Other (Pt states having problems didn't give anymore info) Social History Tobacco Use Types Packs/Day Years [...] Telephone Encounter - Robyn Nathan RN - 08/24/2010 1131 EDT Pt advised over msg that letter was written and mailed to her. * Telephone Encounter - Yovana Callejas MD - 08/24/2010 1101 EDT Please create letter Patient has a medical condition that affects her ability to concentrate and will need a longer period of time to complete school asignments That is all. * Telephone Encounter - Robyn Nathan RN - 08/24/2010 0944 EDT Spoke with pt. She states that she is having trouble concentrating and has had more headaches. She feels that it might be her Fibro. She questions what she can do. She does not want to take any more meds because of insurance issues. Also, pt wants a letter written stating that she needs more time to complete assignments at school because of her Fibro. documented in this encounter Plan of Treatment Not on file documented as of this encounter Visit Diagnoses Not on filedocumented in this encounter Care Teams Assistant County Attorney Relationship Specialty Start Date End Date Remedios Mehta MD [address] [place] [phone] PCP - General 02/19/09 01/04/15 documented as of this encounter
--- OUTSIDE RECORDS SUMMARY | 2024-06-24 02:23 | XMS_ITS | Encounter Summary ---
Author Organization [facility] Address [address] [place] [address] Care Team Providers Care Air Drier Name Role Phone Remedios Mehta MD Primary Care Provider [phone] Reason for Referral * Consult, Test and Treat (Routine) - Closed Specialty Diagnoses / Procedures Referred By Joao proctor Referred To Contact Rehab Therapies Diagnoses Breast lobule hyperplasia Back pain Remedios Mehta MD [address] [place] [address] [facility] [address] [place] [id number] Referral ID Status Reason Start Date Expiration Date V isits Requested Visits Authorized [id number] Closed Specialty Services Required 04/15/2011 1 1 Question Answer Reason for Request: acquatic physical therapy needed for back pain Comments Closest to [place] as possible * Consult (Routine) - Closed Specialty Diagnoses / Procedures Referred By Joao proctor Referred To Contact Plastic Surgery Diagnoses Breast lobule hyperplasia Back pain Fibromyalgia Remedios Mehta MD [address] [place] [address] Referral ID Status Reason Start Date Expiration Date V isits Requested Visits Authorized [id number] Closed Specialty Services Required 04/15/2011 1 1 Question Answer Reason for Request: severe back pain, debilitating, with bilateral breast hyperplasia - needs breast reduction Reason for Visit * Reason Comments Fibromyalgia Depression Back Pain irradiated fuel handler has r ecommended breast reduction Encounter Details Date Type Department Care Team (Late st Contact Info) Description 04/15/2011 8:30 EDT Office Visit [address] [address] Remedios Mehta MD [address] [place] [phone] Back pain; Breast lobule hyperplasia; Fibromyalgia; Asthma; Depressive disorder; Hyperlipidemia; IC (irritable colon) Social History Tobacco Use [...] Sign Reading Time Taken Comments Blood Pressure 118/70 04/15/2011 0832 EDT Pulse 68 04/15/2011 0832 EDT reg Temperature - - Respiratory Rate - - Oxygen Saturation - - Inhaled Oxygen Concentration - - Weight 95.3 kg (210 lb) 04/15/2011 0832 EDT Height - - Body Mass Index 40.34 04/11/2011 1024 EDT documented in this encounter Functional Status Cognitive Status Response Date of Assessm ent Because of a physical, menta l, or emotional condition, do you have serious difficulty concentrating, remembering, or making decisions? (5 years old or older) Yes 04/15/2010 documented as of this encounter Patient Instructions * Patient Instructions* Remedios Strong MD - 04/15/2011 8:53 EDT Images from the original note were not included. [facility] Patient Instructions Breast Reduction: What to Expect at Home Your Recovery Breast reduction surgery removes some of the breast tissue and skin from the breasts. This reshapesand lifts the breasts and reduces their size. It can also make the brown area around the nipple smaller. After surgery, you will probably feel weak. You may feel sore for 2 to 3 weeks. You also may feel pulling or stretching in your breast area. Although you may need pain medicine for a week or two, you can expect to feel better and stronger each day. For several weeks, you may get tired easily or have less energy than usual. You also may have the feeling that fluid is moving in your breasts. This feeling is normal and will go away over time. Stitches usually are removed in 5 to 10 days. Your new breasts may feel firmer and look rounder. Breast reduction may change the normal feeling in your breast. But in time, some feeling may return. After the cuts (incisions) heal, you can massage the area with a mild lotion, vitamin E, or pure lanolin. Do not use perfumed lotions or any product containing alcohol. The massaging action may lowerthe chance that tough scar tissue will form. After several weeks, the scar will soften. It will fade in time. Keep in mind that it may take time to get used to your new breasts. You will have swelling at first, but the breasts will soften and develop better shape over time. This care sheet gives you a general idea about how long it will take for you to recover. But each person recovers at a different pace. Follow the steps below to get better as quickly as possible. How can you care for yourself at home? Activity ?? Rest when you feel tired. Getting enough sleep will help you recover. ?? For about 2 weeks after surgery, avoid lifting anything that would make you strain. This may include a child, heavy grocery bags and milk containers, a heavy briefcase or backpack, cat litter or dog food bags, a vacuum commercial or institutional cleaner, or anything that weighs more than 10 to 15 pounds. Do not lift anything over your head for 2 to 3 weeks. ?? Ask your doctor when you can drive again. ?? Ask your doctor when it is okay for you to have sex. ?? You can take your first shower the day after your drain or bandage is removed. This is usually within about 1 week. Sometimes doctors say it is okay to shower the day after surgery. Do not take a bath or soak in a hot tub for about 4 weeks. ?? You will probably be able to go back to work or your normal routine in 2 to 3 weeks. This depends on the type of work you do and any further treatment. Diet ?? You can eat your normal diet. If your stomach is upset, try bland, low-fat foods like plain rice, broiled chicken, toast, and yogurt. ?? Drink plenty of fluids (unless your doctor tells you not to). ?? You may notice that your bowel movements are not regular right after your surgery. This is common. Try to avoid constipation and straining with bowel movements. Take a fiber supplement. If you have not had a bowel movement after a couple of days, take a mild laxative. Medicines ?? Take pain medicines exactly as directed. ?? If the doctor gave you a prescription medicine for pain, take it as prescribed. ?? If you are not taking a prescription pain medicine, ask your doctor if you can take an [id number] medicine. ?? If you think your pain medicine is making you sick to your stomach: ?? Take your medicine after meals (unless your doctor has told you not to). ?? Ask your doctor for a different pain medicine. If you were given medicine for nausea, take it as directed. ?? If your doctor prescribed antibiotics, take them as directed. Do not stop taking them just because you feel better. You need to take the full course of antibiotics. Incision care ?? If your doctor gave you specific instructions on how to care for your incision, follow those instructions. ?? You may be wearing a special bra that holds your bandages in place after the surgery. Your doctor will tell you when you can stop wearing the bra. Your doctor may want you to wear the bra at nightas well as during the day for several weeks. Do not wear an underwire bra for 1 month. ?? If you have strips of tape on the incision, leave the tape on for a week or until it falls off. ?? Wash the area daily with warm, soapy water, and pat it dry. Don't use hydrogen peroxide or alcohol, which can slow healing. ?? You may cover the area with a gauze bandage if it weeps or rubs against clothing. Change the bandage 1 or 2 times each day. Consider having someone help you with this. ?? Ask your doctor what products, such as aloe vera, to use on the incision to help it heal. Exercise ?? Try to walk each day. Start by walking a little more than you did the day before. Bit by bit, increase the amount you walk. Walking boosts blood flow and helps prevent pneumonia, constipation, andblood clots in your legs. ?? Avoid strenuous activities, such as bicycle riding, jogging, weight lifting, or aerobic exercise, until your doctor says it is okay. ?? Your doctor will tell you when to begin stretching exercises and normal activities. Ice ?? To reduce swelling and pain, put ice or a cold pack over your breast for 10 to 20 minutes at a time. Put a thin cloth between the ice and your skin. Other instructions ?? You may have one or more drains near your incisions. Your doctor will tell you how to take care of them. Drains are usually removed in the first week after surgery. Follow-up care is a gomez part of your treatment and safety. Be sure to make and go to all appointments, and call your doctor if you are having problems. It???s also a good idea to know your test results and keep a list of the medicines you take. When should you call for help? Call 911 anytime you think you may need emergency care. For example, call if: ?? You passed out (lost consciousness). ?? You have sudden chest pain and shortness of breath, or you cough up blood. Call your doctor now or seek immediate medical care if: ?? You have severe pain in your breast area. ?? You have fluid under the skin or a lot of swelling at the surgery site. ?? You are sick to your stomach or cannot keep fluids down. ?? You have pain that does not get better after you take pain medicine. ?? You have signs of infection, such as: 1. Increased pain, swelling, warmth, or redness. 2. Red streaks leading from the incision. 3. Pus draining from the incision. 4. Swollen lymph nodes in your neck, armpits, or groin. 5. A fever. ?? You have loose stitches, or your incision comes open. ?? You bleed through a large bandage over your incision. ?? You develop a cough. ?? You have signs of a blood clot, such as: 1. Pain in your calf, back of the knee, thigh, or groin. 2. Redness and swelling in your leg or groin. ?? You feel anxious or depressed, or have trouble sleeping. ?? You are not getting better as expected. Where can you learn more? Go to www.[employer].net/fahc Enter T113 in the search box to learn more about Breast Reduction: What to Expect at Home. ?? [id number] [employer]. Care instructions adapted under license by [facility], [facility]. This care instruction is for use with your licensed healthcare professional. If you have questions about a medical condition or this instruction, always ask your healthcare professional. [employer] disclaims any warranty or liability for your use of this information. Content Version: 8.8.94272; Last Revised: April 10, 2010[facility] Patient Instructions Breast Reduction: Before Your Surgery What is breast reduction? Breast reduction surgery removes a lot of the breast tissue and skin from the breasts. This reshapes and lifts the breasts and reduces their size. It can also make the brown area around the nipple smaller. Your doctor makes a cut (incision) around the brown area and down to the crease under the breast. To reduce the breast size, the doctor removes excess skin and breast tissue. The doctor sews the remaining skin together. This tightens and lifts the breasts. The surgery may pull the nipples and the area around them into a different spot on the breasts. Your doctor may need to reposition your nipples higher. You may lose some feeling in them because of this. The doctor closes the incisions with stitches. After surgery, your breasts will weigh less. But you may have lasting scars on your breasts, and you may have less feeling in your breasts and nipples. Breast reduction may make it hard to breast-feed. Breast reduction surgery is usually done in a hospital or surgical center. You will likely be asleep for your surgery. After your surgery, you will probably be able to go home the same day. Dependingon the type of work you do, you should be able to go back to work or your normal routine in 2 to 3 weeks. The incisions leave scars that usually fade a lot with time. Follow-up care is a gomez part of your treatment and safety. Be sure to make and go to all appointments, and call your doctor if you are having problems. It's also a good idea to know your test resultsand keep a list of the medicines you take. What happens before surgery? Having surgery can be stressful. This information will help you understand what you can expect and how to safely prepare for surgery. Preparing for surgery ?? Bring a list of questions to ask your doctors. It is important that you understand exactly what surgery is planned, the risks, benefits, and other options before your surgery. ?? Tell your doctors ALL the medicines, vitamins, supplements, or herbal remedies you are taking. Keep a list of these with you, and bring this with you to every appointment. You will be told which medicine to take or to stop before your surgery. ?? Some medicines, such as aspirin or ibuprofen (Advil, Motrin), and certain vitamins and herbal remedies can increase the risk of bleeding or interact with anesthesia. You may be asked to stop thesea week before surgery. ?? Before your surgery, you will speak with an anesthesia provider to discuss your anesthetic options, including the risks, benefits, and alternatives to each. This may be on the phone or in person. Taking care of yourself before surgery ?? Build healthy habits into your life. Changes are best made several weeks before surgery, since your body may react to sudden changes in your habits. ?? Stay as active as you can. ?? Eat a healthy diet. ?? Cut back or quit alcohol and tobacco. ?? If you have an advance directive--which may include a living will and a durable power of assistant city attorney for health care--let your doctor know. If you do not have one, you may want to prepare one so yourdoctor and loved ones know your health care wishes. Doctors recommend that everyone prepare these papers before surgery, regardless of the type of surgery or condition. What happens on the day of surgery? ?? Follow the instructions exactly about when to stop eating and drinking, or your surgery may be canceled. If your doctor has instructed you to take your medicines on the day of surgery, please do so using only a sip of water. ?? Take a bath or shower before you come in for your surgery. Do not apply lotions, perfumes, deodorants, or nail belarusian. ?? Do NOT shave the surgical site yourself. ?? Remove all jewelry, piercings, and contact lenses. ?? Leave your valuables at home. At the hospital or surgery center ?? Bring a picture ID. ?? Before surgery you will be asked to repeat your full name, what surgery you are having, and whatpart of your body is being operated on. Your doctor will use a marker to draw lines on your breasts. He or she will use these lines during surgery to reshape your breasts. ?? A small tube (IV) will be placed in a vein, to give you fluids and medicine to help you relax. Because of the combination of medicines given to keep you comfortable, you may not remember much about the operating room. ?? You will be kept comfortable and safe by your anesthesia provider. The anesthesia may range frommaking you fully asleep, to simply numbing the area being worked on. This will depend on the procedure you are having, as well as a discussion between your doctor, the anesthesia provider, and you. ?? The surgery will take about 2 to 4 hours. ?? You may have drain tubes in your breasts. ?? As you wake up in the recovery room, the nurse will check to be sure you are stable and comfortable. It is important for you to tell your doctor and nurse how you feel and ask questions about any concerns you may have. Going home ?? Be sure you have someone to drive you home. ?? For your safety, you should not drive until you are no longer taking pain medicines and you can move and react easily. ?? Arrange for extra help at home after surgery, especially if you live alone or provide care for another person. ?? You will be given more specific instructions about recovering from your surgery, including activity and when you may return to work. When should you call your doctor? ?? You have questions or concerns. ?? You don???t understand how to prepare for your surgery. ?? You become ill before the surgery (such as fever, flu, or a cold). ?? You need to reschedule or have changed your mind about having the surgery. Where can you learn more? Go to www.healthwise.net/fahc Enter E381 in the search box to learn more about Breast Reduction: Before Your Surgery. ?? [id number] [employer]. Care instructions adapted under license by [facility], [facility]. This care instruction is for use with your licensed healthcare professional. If you have questions about a medical condition or this instruction, always ask your healthcare professional. [employer] disclaims any warranty or liability for your use of this information. Content Version: 8.8.71288; Last Revised: December 02, 2008 documented in this encounter Progress Notes * Eboni Escalera - 04/15/2011 09 EDT Venipuncture performed per order of Dr Remedios Strong. Eboni Escalera MA * Remedios Strong MD - 04/15/2011906 EDT Subjective: Patient ID: Cherelle Husain is an 51 y.o. female. Chief Complaint Patient presents with ??? Fibromyalgia ??? Depression ??? Back Pain irradiated fuel handler has recommended breast reduction HPI Cherelle's children threw her a 51th birthday alliance party yesterday. Happy but sore. Here for follow up and to discuss a few things. Her irradiated fuel handler wants her to get a breast reduction. Needs a referral. Every day she has excruciating back pain from the shoulders to lower back, worse in the center of her back. It limits her activity, her quality of life, her stamina and her mood. Also recommended water PT - needs a referral. Mood has been better on citalopram 60mg daily. Doing better in counseling. Rheumatology wants to add Lyrica to her current regimen. Pt wanted to review that with me. She has pain on a daily basis. It significantly effects her quality of life on a negative level. Back pain makes it almost impossible to do any exercise. Has been watching her diet and has lost 6 lb since our last visit. Attending the pain group and this has been a little helpful but she finds she gets distracted during the groups. Plans on continuing to go. Sleeping better. Patient Active Problem List Diagnoses Code ??? [...] 1 Tab by mouth every 4 hours. ??? pregabalin (LYRICA) 25 mg capsule Take 1 Cap by mouth at bedtime. 30 Cap 2 ??? metoprolol (LOPRESSOR) 25 mg tablet Take 1 Tab by mouth 2 times daily. 180 Tab 4 ??? fluticasone (FLONASE) 50 mcg/Actuation nasal spray 1 [place] by Nasal route daily. 1 Bottle 5 ??? budesonide-formoterol (SYMBICORT) 80-4.5 mcg/Actuation HFAA inhaler Inhale 2 Puffs as directed 2 times daily. 1 Inhaler 5 ??? hydroxychloroquine (PLAQUENIL) 200 mg tablet Take 1 Tab by mouth 2 times daily. 90 Tab 1 ??? citalopram (CELEXA) 20 mg [...] by mouth daily. 30 Tab 11 ??? omeprazole (PRILOSEC) 20 mg [...] occasional ROS - See HPI Objective: BP 118/70 Pulse 68 Wt 95.255 kg (210 lb) LMP 03/09/2010 Physical Exam Constitutional: She is oriented to person, place, and time. She appears well- developed and well-nourished. HENT: Mouth/Throat: Oropharynx is clear and moist. Eyes: Conjunctivae are normal. Neck: Normal range of motion. Neck supple. Cardiovascular: Normal rate, regular rhythm, normal heart sounds and intact distal pulses. Pulmonary/Chest: Effort normal and breath sounds normal. Musculoskeletal: Normal range of motion. 1/2 inch indentations where bra straps fall; significant tenderness to light touch in the shoulder area bilaterally; + tenderness along paraspinous muscles bilaterally + tenderness over paraspinous muscles of thoracic and lumbar spine; no point tenderness over spine;strength intact in all extremities Neurological: She is alert and oriented to person, place, and time. Psychiatric: She has a normal mood and affect. No SI/HI Assessment: Plan: Cherelle was seen today for fibromyalgia, depression and back pain. Diagnoses and associated orders for this visit: Back pain - Ambulatory Consult Plastic Surgery - Ambulatory Consult Physical Therapy Breast lobule hyperplasia - Ambulatory Consult Plastic Surgery - Ambulatory Consult Physical Therapy Fibromyalgia - Ambulatory Consult Plastic Surgery Think a trial of lyrica is reasonable - pt will start prescription rheumatology gave her Continue with rest of plan/management per rheumatology Asthma Stable - refilled medications Depressive disorder Continue with current med and counseling Hyperlipidemia - Lipid Profile (Includes Cholesterol, Triglycerides, HDL, LDL) Ic (irritable colon) Biofeedback and amitza documented in this encounter Plan of Treatment Scheduled Referrals Name Type Priority Associated Diagnoses Orde r Schedule AMB CONSULT PLASTIC SURGERY Outpatient Referral Routine Breast lobule hyperplasia Back pain Fibromyalgia Ordered: 04/15/2011 AMB CONSULT PHYSICAL THERAPY Outpatient Referral Routine Breast lobule hyperplasia Back pain Ordered: 04/15/2011 documented as of this encounter Procedures Procedure Name Priority Date/Time Associated Diagnosis Comments LIPID PROFILE (INCLUDES CHOLESTEROL, TRIGLYCERIDES, HDL, LDL) Routine 04/15/2011 8:52 EDT Hyperlipidemia documented in this encounter Results * LIPID PROFILE (INCLUDES CHOLESTEROL, TRIGLYCERIDES, HDL, LDL) (04/15/2011 8:52 EDT) Cholesterol 243 mg/dl [facility] Comment:Desirable:<200 Borde rline High:200-239 High:>ns=291 Triglycerides 127 35 - 160 mg/dl [facility] HDL 45 mg/dl [facility] Comment:Low:<40 High(Desirab le):>or=60 LDL, Calculated 173 mg/dl [facility] Comment: Optimal:<100 Above optimal:100-129 Borderline High:130-159 High:160-189 Very High:>zw=598 Chol/HDL Ratio 5.4 [facility] Fasting? Unknown [facility] Blood specimen (specimen) 04/15/2011 8:52 EDT 04/15/2011 17:34 EDT Remedios Mehta MD CHEMISTRY & BLOOD GAS ORDERABLES [facility] [address] [place] [address] documented in this encounter Visit Diagnoses Diagnosis Back pain Backache, unspecified Breast lobule hyperplasia Hypertrophy of breast Fibromyalgia Mylagia and myositis, unspecified Asthma Unspecified asthma Depressive disorder Depressive disorder, not elsewhere classified Hyperlipidemia Other and unspecified hyperlipidemia IC (irritable colon) Irritable bowel syndrome documented in this encounter Care Teams Air Drier Relationship Specialty Start Date End Date Remedios Mehta MD [address] [place] [phone] PCP - General 02/19/09 01/04/15 documented as of this encounter
--- OUTSIDE RECORDS SUMMARY | 2024-06-24 02:23 | XMS_ITS | Encounter Summary ---
Author Organization [facility] Address [address] [place] [address] Care Team Providers Care Eyeletter Name Role Phone Remedios Mehta MD Primary Care Provider [phone] Reason for Visit * Reason Comments Depression Encounter Details Date Type Department Care Team (Late st Contact Info) Description 02/09/2011 11:00 EDT Office Visit [address] [address] Roxie Pacheco, PhD [address] [place] [address] Major depressive disorder, single episode, mild ([facility]) (Primary Dx) Social History Tobacco Use Types [...] as of this encounter Visit Diagnoses Diagnosis Major depressive disorder, single episode, mild ([facility] Primary Major depressive disorder, single episode, mild documented in this encounter Care Teams Eyeletter Relationship Specialty Start Date End Date Remedios Mehta MD [address] [place] [phone] PCP - General 02/19/09 01/04/15 documented as of this encounter
--- OUTSIDE RECORDS SUMMARY | 2024-06-24 02:23 | XMS_ITS | Encounter Summary ---
Author Organization [facility] Address [address] [place] [address] Care Team Providers Care Nuclear Plant Construction Worker Name Role Phone Remedios Mehta MD Primary Care Provider [phone] Reason for Visit * Reason Comments Pain Post Traumatic Stress Disorder Depression Encounter Details Date Type Department Care Team (Late st Contact Info) Description 02/17/2011 9:00 EDT Office Visit [facility] Psychiatry [address] [address] Gay Trujillo MD [facility] [address] [phone] Depression, major; Depressive disorder; Myalgia and myositis; Arthropathy Discharge Disposition: Auto Discharge Social History Tobacco [...] as needed 60 Tab 1 02/17/2011 05/31/2011 citalopram (CELEXA) 20 mg tabletIndications:Depress ion, major Take 3 Tabs by mouth daily. 90 Each 1 02/17/2011 06/08/2011 documented in this encounter Discharge Disposition Disposition Code Departure Means Destination Auto Discharge documented in this encounter Plan of Treatment Not on file documented as of this encounter Visit Diagnoses Diagnosis Depression, major Major depressive disorder, single episode, unspecified Depressive disorder Depressive disorder, not elsewhere classified Myalgia and myositis Mylagia and myositis, unspecified Arthropathy Arthropathy, unspecified, site unspecified documented in this encounter Discontinued Medications Medication Sig Discontinue Reason Start Date End Da te citalopram (CELEXA) 40 mg tabletIndications:Depre ssion Take 1 Tab by mouth daily. 12/15/2010 02/17/2011 tramadol (ULTRAM) 50 mg tablet Take 50 mg by mouth every 6 hours as needed. Patient Stopped Taking 02/17/2011 trazodone (DESYREL) 100 mg tabletIndications:Myalg ia and myositis,Arthropathy Take 1 Tab by mouth at bedtime. Reorder 06/28/2010 02/17/2011 documented as of this encounter Care Teams Nuclear Plant Construction Worker Relationship Specialty Start Date End Date Remedios Mehta MD [address] [place] [phone] PCP - General 02/19/09 01/04/15 documented as of this encounter
--- OUTSIDE RECORDS SUMMARY | 2024-06-24 02:23 | XMS_ITS | Encounter Summary ---
Author Organization [facility] Address [address] [place] [address] Care Team Providers Care Structural Shop Helper Name Role Phone Remedios Mehta MD Primary Care Provider [phone] Reason for Referral * Consult, Test and Treat (Routine) - Closed Specialty Diagnoses / Procedures Referred By Joao proctor Referred To Contact Diagnoses Myalgia and myositis Yovana Callejas MD [address] [facility] [address] [place] [address] Referral ID Status Reason Start Date Expiration Date V isits Requested Visits Authorized [id number] Closed Specialty Services Required 12/31/2010 1 1 Question Answer Reason for Request: physical therapy for patient with knee pain, fibromylagia and arthritis. Reason for Visit * Reason Comments Fibromyalgia pt states, it is renu d for her to get comfortable, very fatigue, tingling in b/l hands and feet, all the same as when seen last, in november Encounter Details Date Type Department Care Team (Late st Contact Info) Description 12/31/2010 9:15 EST Office Visit [facility] [address] [place] [address] Yovana Callejas MD [address] [facility] [address] [place] [address] Unspecified inflammatory polyarthropathy (Primary Dx); Encounter for long-term (current) use of other medications; Myalgia and myositis Social History Tobacco Use [...] Sign Reading Time Taken Comments Blood Pressure 108/68 12/31/2010916 EST Pulse 70 12/31/2010916 EST Temperature - - Respiratory Rate - - Oxygen Saturation - - Inhaled Oxygen Concentration - - Weight 98 kg (216 lb) 12/31/2010916 EST Height 152.4 cm (5') 12/31/2010916 EST Body Mass Index 42.18 12/31/2010 09 EST documented in this encounter Functional Status Cognitive Status Response Date of Assessm ent Because of a physical, menta l, or emotional condition, do you have serious difficulty concentrating, remembering, or making decisions? (5 years old or older) Yes 04/15/2010 documented as of this encounter Patient Instructions * Patient Instructions* Yovana Callejas MD - 12/31/2010 10:10 EST You may be having increased pain from Psoriatic arthritis Talk with DR Strong about change to Effexor or Cymbalta to improve pain from Fibromylagia Start methotrexate 4 pills one day a week If mouth sores add folic acid You will be starting methotrexate therapy. Labs every two to three months, standing order at [facility]. Methotrexate therapy is taken one day a week. The number of pills to be taken may vary, however, they can all be taken at the same time or in a divided dose. If your disease does not respond to a lowdose of this medication we can work together to decided whether we should increase the number of tablets you take every week. Methotrexate can interact with different medication including some commonly used antibiotics you should always check with your pharmacist if you are prescribed a new medication to be sure there are no interactions. Common side effects of methotrexate include: Nausea, mouth sores, diarrhea, and cough. Methotrexatecan also cause abnormal blood counts or liver inflammation, however, these are rare side effects. We will need to monitor you blood tests at a two to three month interval. Please contact our office if you did not receive an order for blood tests today. To reduce the frequency of mouth sores in patients with methotrexate folic acid therapy can be added. If you do not have trouble with mouth sores you may not need to take this medication. Because methotrexate can also affect the liver it is important to let your provider know if you drink alcohol. Please let your provider know exactly how much alcohol you drink on a daily or weekly basis. If you consume more than five units of alcohol in a week methotrexate might not be appropriate for you. Our nurses are very familiar with the use of methotrexate and can assist you should you have any questions once you are home and are first starting methotrexate therapy. Urine sample documented in this encounter Ordered Prescriptions Prescription Sig Dispensed Refills Start Date End Da te methotrexate 2.5 mg tabletIndications:Unspecifie d inflammatory polyarthropathy Take 4 Tabs by mouth once a week. 16 Tab 5 12/31/2010 07/05/2011 documented in this encounter Progress Notes * Yovana Callejas MD - 12/31/2010 1607 EST I personally examined the patient and confirmed the history and examination with the medical student present at the bedside. On examination there is nail pitting and onychomycosis of her right index finger nail. IMPRESSION Possible psoriatic arthritis. Fibromyalgia, tender points persist but she is less depressed, ? If she might be better controled with regard to fibromyalgia with and SNRI, however she has been unable to afford these more expensivemedications. PLAN Patient educated about possible psoriatic arthritis. Patient has fibromyalgia and is working on it. Patient agrees to a trial of methotrexate usual side effects discussed as documented Cherelle was seen today for fibromyalgia. Diagnoses and associated orders for this visit: Unspecified inflammatory polyarthropathy - methotrexate 2.5 mg tablet; Take 4 Tabs by mouth once a week. Hold folic acid for now as she takes a multivitamin Encounter for long-term (current) use of other medications - Comprehensive Metabolic Panel (CMP); Standing - Hemagram & Differential; Standing Myalgia and myositis - Ambulatory Consult Physical Therapy aquatic therapy Patient was advised to contact me if there are any problems. Otherwise follow up as scheduled. NO barriers to learning identified. The patient was in agreement with the plan of care as outlined above Return in 2-3 months. * Heladio Rodirguez - 12/31/2010 1133 EST Chief Complaint Patient presents with ??? Fibromyalgia pt states, it is hard for her to get comfortable, very fatigue, tingling in b/l hands and feet, allthe same as when seen last, in november HPI: Ms. Husain has no acute complaints today, but continues to suffer from diffuse pain throughout her body, as well as depression. Today, she rates her discomfort at 7-8/10, which is not much different from her last visit. She does think her overall pain level is worse since her R knee surgery last March (2009). Changes since her last visit include possible increased sensitivity to light, and mildly improved depression since starting Celexa. [place] continues to provide moderate pain control -- it numbs it for a while; she is taking 3 5/500 tabs every day, though she notes that she does not take them if she is going to drive. On review of systms, new symptoms include a small sore on theR nare of her nose, diarrhea for the past 1-2 weeks (though she is not having diarrhea now), and possible increase in uncomfortable urination: she says that she feels a pressure after urination and has to wait a few minutes before getting off the toilet because of the uncomfortable sensation. Patient reports that her sleep has improved on Trazadone, but it is still not restful. She continues to report significant life stressors, including financial hardship; she is applying for disability. Continuing chronic symptoms for her include: periodic low-grade fevers, fatigue, night sweats, SOB and coughing assoc with RAD, HAs with nausea, constipation, morning stiffness and muscle pain, numbness and tingling in her distal extremities, anxiety and depression, and rosacea. Past Medical History Diagnosis Date ??? Fibromyalgia ??? Obesity ??? Asthma ??? Depression ??? Anxiety ??? GERD (gastroesophageal reflux disease) ??? Fibromyalgia ??? confirmed 2 vaginal deliveries Current outpatient prescriptions ordered [...] fluticasone (FLONASE) 50 mcg/Actuation nasal spray 1 [place] by Nasal route daily. ??? pregabalin (LYRICA) [...] every 4 hours as needed for Wheezing. Review of Systems - A 12-point review of systems was undertaken and was negative unless referenced in the HPI. PHYSICAL EXAM: Nursing note and vitals reviewed. General: Woman wearing sunglasses sitting in a large chair by the window; pleasant; alert & oriented x3; NAD HEENT: Atraumatic, normocephalic head; clear conjunctivae, KYLEE; MMM, clear oropharynx; small erythematous 1x1cm macule on lateral aspect of R nare Lungs: Minimal end-expiratory wheezes bilaterally; no R/R CV: RRR, S1 & S2 normal, no M/R/G Musculoskeletal: Significant diffuse tenderness at joints and muscles throughout body; fibromyalgiapoints extremely tender w/ R>L; vertical surgical scar on R knee, R knee warm to touch Skin: Mild erythema and rare telangiectasias on cheeks; otherwise, no rashes or ecchymoses noted Neurological: Generally intact; responds appropriately to questions documented in this encounter Procedure Notes * Inpatient, Physician - 01/12/2011 1052 EDTAssociated Order(s): PATHOLOGY - SCANNED documented in this encounter Plan of Treatment Scheduled Referrals Name Type Priority Associated Diagnoses Orde r Schedule AMB CONSULT PHYSICAL THERAPY Outpatient Referral Routine Myalgia and myositis Ordered: 12/31/2010 documented as of this encounter Procedures Procedure Name Priority Date/Time Associated Diagnosis Comments PATHOLOGY - SCANNED 01/12/2011 1 0:52 EDT documented in this encounter Results * PATHOLOGY - SCANNED (01/12/2011 10:52 EDT) 01/12/2011 10:5 2 EDT Narrative Procedure Note Inpatient, Physician - 01/12/2011 10:52 EDT Physician Inpatient MD LAB INFO SERVICE AND SUPPORT & PHONE RESULT documented in this encounter Visit Diagnoses Diagnosis Unspecified inflammatory polyarthropathy- Primary Encounter for long-term (current) use of other medications Myalgia and myositis Mylagia and myositis, unspecified documented in this encounter Care Teams Structural Shop Helper Relationship Specialty Start Date End Date Remedios Mehta MD [address] [place] [phone] PCP - General 02/19/09 01/04/15 documented as of this encounter
--- OUTSIDE RECORDS SUMMARY | 2024-06-24 02:23 | XMS_ITS | Encounter Summary ---
Author Organization [facility] Address [address] [place] [address] Care Team Providers Care Superintendent Service Name Role Phone Remedios Mehta MD Primary Care Provider [phone] Reason for Visit * Reason Onset Date Comments Medications Refill 03/30/2011 Encounter Details Date Type Department Care Team (Late st Contact Info) Description 03/30/[address] [address] Remedios Mehta MD [address] [place] [phone] Medications Refill Social History Tobacco Use [...] End Da te metoprolol (LOPRESSOR) 25 mg tabletIndications:Hyperten oliverio Take 1 Tab by mouth 2 times daily. 180 Tab 4 03/30/2011 04/04/2012 documented in this encounter Miscellaneous Notes * Telephone Encounter - Delia Paul - 03/30/2011 1543 EDT Last Refill Date 03/10/10 180 4 RF Last Visit Date 02/25/11 Next Visit Date 04/15/11 Is patient out of medication? NO documented in this encounter Plan of Treatment Not on file documented as of this encounter Visit Diagnoses Diagnosis Hypertension- Primary Unspecified essential hypertension documented in this encounter Discontinued Medications Medication Sig Discontinue Reason Start Date End Da te metoprolol (LOPRESSOR) 25 mg tabletIndications:Hyperte nsion Take 1 Tab by mouth 2 times daily. Reorder 03/10/2010 03/30/2011 documented as of this encounter Care Teams Superintendent Service Relationship Specialty Start Date End Date Remedios Mehta MD [address] [place] [phone] PCP - General 02/19/09 01/04/15 documented as of this encounter
--- OUTSIDE RECORDS SUMMARY | 2024-06-24 02:23 | XMS_ITS | Encounter Summary ---
Author Organization [facility] Address [address] [place] [address] Care Team Providers Care Lead Caregiver Name Role Phone Remedios Mehta MD Primary Care Provider [phone] Reason for Visit * Reason Comments Arthritis Follow up visit.s/p TKR on right in march 2010 Depression Other cost of medications Encounter Details Date Type Department Care Team (Late st Contact Info) Description 11/08/2010 11:15 EST Office Visit [facility] [place] [facility] Family Medicine [address] [address] Remedios Mehta MD [address] [place] [phone] Asthma; Arthritis; Fibromyalgia; Obesity; Depression; Abnormal urine odor Social History Tobacco Use Types Packs/Day Years [...] Sign Reading Time Taken Comments Blood Pressure 114/70 11/08/2010 1123 EST Pulse 60 11/08/2010 1123 EST Temperature - - Respiratory Rate - - Oxygen Saturation - - Inhaled Oxygen Concentration - - Weight 98.9 kg (218 lb) 11/08/2010 1123 EST Height 152.4 cm (5') 11/08/2010 1123 EST Body Mass Index 42.58 11/08/2010 1123 EST documented in this encounter Functional Status Cognitive Status Response Date of Assessm ent Because of a physical, menta l, or emotional condition, do you have serious difficulty concentrating, remembering, or making decisions? (5 years old or older) Yes 04/15/2010 documented as of this encounter Ordered Prescriptions Prescription Sig Dispensed Refills Start Date End Da te citalopram (CELEXA) 20 mg tabletIndications:Depressi on Take 1 Tab by mouth daily. 90 Tab 3 11/08/2010 12/15/2010 documented in this encounter Progress Notes * Eboni Escalera - 11/08/2010 1335 EST POC urine dipstick performed per order of Dr Remedios Strong. Eboni Escalera MA * Remedios Strong MD - 11/08/2010 1151 EST Subjective: Patient ID: Cherelle Husain is an 50 y.o. female. Chief Complaint Patient presents with ??? Arthritis Follow up visit. HPI I hurt all over. Neck, hips, shoulders, hands hurt more. Taking 6-8 Tylenol (650mg) a day for pain control. Now c/o intermittent chest discomfort and SOB with exertion; Sx last few seconds and is always associated with feeling busy and anxious. Had to cut down on accolate to once a day because of cost and has been out of advair for a month. She attributes this to her chest discomfort. Denies other associated symptoms. Has also not been able to afford many of her medications (see list) including cymbalta. Feeling more depressed. Out of work, financial issues, feels like she is depending too much on friends. Overwhelmed, can't focus, down mood. Sleep is okay with trazadone. Right knee pain since TKR in March 2010 is no better - worse and Dr. Suarez wouldn't give a second opinion. Pt feels discouraged. Patient Active Problem List Diagnoses Code ??? [...] ??? Thrombophlebitis 451.9G ??? Hypercoagulation syndrome 289.81AA Past Medical History Diagnosis Date ??? Fibromyalgia ??? Obesity ??? Asthma ??? Depression ??? Anxiety ??? GERD (gastroesophageal reflux disease) ??? Fibromyalgia ??? confirmed 1979,1982 2 vaginal deliveries Current outpatient prescriptions ordered prior to encounter Medication Sig Dispense Refill ??? trazodone (DESYREL) 100 mg tablet Take [...] Take 1 Tab by mouth daily. ??? duloxetine (CYMBALTA) 20 mg capsule Take 20 mg by mouth 2 times daily. ??? albuterol (ACCUNEB) 0.63 mg/3 mL [...] Constipation Social History Substance Use Topics ??? Tobacco Use: Quit quit 20+ yr ago ??? Alcohol Use: Yes very occasional ROS - See HPI Objective: BP 114/70 Pulse 60 LMP 03/09/2010 Physical Exam Constitutional: She is [...] sounds normal. Musculoskeletal: Normal range of motion. Healed scar over right knee; no joint line tenderness but slightly more swollen than left knee Neurological: She is alert and oriented to person, place, and time. Skin: Skin is warm and dry. Psychiatric: Depressed with congruent affect; no SI/HI; good eye contact Assessment: 50 yo woman with arthritis, s/p right TKR, fibromyalgia, depression and recently worsening financial and social situation Plan: Referred to Kristen Pacheco for counseling Pt contracted for safety Start citalopram 20mg daily; f/u in 1 month (discussed Rx plan at [facility] - pt will get this prescription there since it is 10$ for 90 days/4$ for 30 day) F/U with Dr. Callejas for rheumatology this week Continue asthma meds as listed; pt declined refills but will let me know if she chagnes her mind Greater than 50% of the time with the patient was spent in face to face counseling; more than 40 minutes visit. ASK documented in this encounter Plan of Treatment Not on file documented as of this encounter Procedures Procedure Name Priority Date/Time Associated Diagnosis Comments POCT URINE DIPSTICK, CLINITEK Routine 11/08/2010 12:15 EST Abnormal urine odor documented in this encounter Results * (ABNORMAL) POCT URINE DIPSTICK (11/08/2010 12:15 EST) Color, UA Yellow POINT OF CARE Clarity, UA Slightly Cloudy POINT OF CARE Glucose, UA Negative Negative mg/dL POINT OF CARE Bilirubin, UA Negative Negative POINT OF CARE Ketones, UA Negative Negative mg/dL POINT OF CARE Spec Grav, UA 1.020 1.010, 1.015, 1.020, 1.025 POINT OF CARE Blood, UA Negative Negative POINT OF CARE pH, UA 7.0 4.6 - 8.0 POINT OF CARE Protein, UA Trace(A) Negative mg/dL POINT OF CARE Urobilinogen, UA 0.2 0.2 - 1.0 E.U./dL POINT OF CARE Nitrite, UA Negative Negative POINT OF CARE Leuk Esterase Negative Negative POINT OF CARE Comment POINT OF CARE Urine specimen (specimen) 11/08/2010 12:15 EST Remedios Mehta MD POINT OF CARE SANDRA T ORDERABLES POINT OF CARE documented in this encounter Visit Diagnoses Diagnosis Asthma Unspecified asthma Arthritis Arthropathy, unspecified, site unspecified Fibromyalgia Mylagia and myositis, unspecified Obesity Obesity, unspecified Depression Depressive disorder, not elsewhere classified Abnormal urine odor Other nonspecific finding on examination of urine documented in this encounter Discontinued Medications Medication Sig Discontinue Reason Start Date End Da te duloxetine (CYMBALTA) 20 mg capsule Take 20 mg by mouth 2 times daily. Cost of medication 09/27/2010 11/08/2010 documented as of this encounter Care Teams Lead Caregiver Relationship Specialty Start Date End Date Remedios Mehta MD [address] [place] [phone] PCP - General 02/19/09 01/04/15 documented as of this encounter
--- OUTSIDE RECORDS SUMMARY | 2024-06-24 02:23 | XMS_ITS | Encounter Summary ---
Author Organization [facility] Address [address] [place] [address] Care Team Providers Care Java Software Engineer Name Role Phone Remedios Mehta MD Primary Care Provider [phone] Reason for Visit * Reason Onset Date Comments Medications Refill 05/31/2011 Encounter Details Date Type Department Care Team (Late st Contact Info) Description 05/31/[address] [address] Remedios Mehta MD [address] [place] [phone] Medications Refill Social History Tobacco Use [...] as needed 60 Tab 1 05/31/2011 11/18/2011 documented in this encounter Plan of [...] at bedtime for sleep as needed Reorder 02/17/2011 05/31/2011 documented as of this encounter Care Teams Java Software Engineer Relationship Specialty Start Date End Date Remedios Mehta MD [address] [place] [phone] PCP - General 02/19/09 01/04/15 documented as of this encounter
--- OUTSIDE RECORDS SUMMARY | 2024-06-24 02:23 | XMS_ITS | Encounter Summary ---
Author Organization [facility] Address [address] [place] [address] Care Team Providers Care Double Surface Operator Name Role Phone Remedios Mehta MD Primary Care Provider [phone] Reason for Visit * Reason Onset Date Comments Appointment Related 08/18/2010 Encounter Details Date Type Department Care Team (Late st Contact Info) Description 08/18/[address] [id number] Apolinar William, PT [address] [place] [address] [place] [phone] Appointment Related Social History Tobacco Use [...] Notes * Telephone Encounter - Dayna Platt - 08/18/2010 0947 EDT The patient called to cancel today's appointment due to insurance problems. Will call to reschedulewhen problems are resolved. No further appointments scheduled at this time. documented in this encounter Plan of Treatment Not on file documented as of this encounter Visit Diagnoses Not on filedocumented in this encounter Care Teams Double Surface Operator Relationship Specialty Start Date End Date Remedios Mehta MD [address] [place] [phone] PCP - General 02/19/09 01/04/15 documented as of this encounter
--- OUTSIDE RECORDS SUMMARY | 2024-06-24 02:23 | XMS_ITS | Encounter Summary ---
Author Organization [facility] Address [address] [place] [address] Care Team Providers Care Hand Fretted Instrument Maker Name Role Phone Remedios Mehta MD Primary Care Provider [phone] Reason for Referral * Consult (Routine) - Closed Specialty Diagnoses / Procedures Referred By Joao proctor Referred To Contact Plastic Surgery Diagnoses Back pain Belen Finley MD [address] [place] [id number] Referral ID Status Reason Start Date Expiration Date V isits Requested Visits Authorized [id number] Closed Specialty Services Required 04/11/2011 1 1 Question Answer Reason for Request: breast reduction - severe back pain from enlargened breasts Reason for Visit * Reason Comments Fibromyalgia same as last visit Joint Pain generalized Encounter Details Date Type Department Care Team (Late st Contact Info) Description 04/11/2011 10:15 EDT Office Visit [facility] Rheumatology & Immunology - [address] [address] Unknown, Provider, Belen Finley MD [address] [place] [address] Chandana Joyner Chi, MD [address] [facility], [address] [place] [phone] Psoriatic arthropathy (HCC-CMS) (Primary Dx); Back pain Social History Tobacco Use Types [...] Sign Reading Time Taken Comments Blood Pressure 124/78 04/11/2011 1024 EDT Pulse 56 04/11/2011 1024 EDT Temperature - - Respiratory Rate - - Oxygen Saturation - - Inhaled Oxygen Concentration - - Weight 98.4 kg (217 lb) 04/11/2011 1024 EDT Height 153.7 cm (5' 0.5) 04/11/2011 1024 EDT Body Mass Index 41.68 04/11/2011 1024 EDT documented in this encounter Functional Status Cognitive Status Response Date of Assessm ent Because of a physical, menta l, or emotional condition, do you have serious difficulty concentrating, remembering, or making decisions? (5 years old or older) Yes 04/15/2010 documented as of this encounter Patient Instructions * Patient Instructions* Belen Quevedo - 04/11/2011 11:01 EDT Can stop methotrexate if not helping Check labs today CBC with diff and CMP now and every 2 months Needs to retry aquatherapy Ask PCP to try switching to Cymbalta, effexor, lyrica or gabapentin documented in this encounter Ordered Prescriptions Prescription Sig Dispensed Refills Start Date End Da te pregabalin (LYRICA) 25 mg capsule Take 1 Cap by mouth at bedtime. 30 Cap 2 04/11/2011 07/06/2011 documented in this encounter Progress Notes * Belen Quevedo - 04/11/2011 1413 EDT Patient is here for follow up of psoriatic arthritis, OA and fibromyalgia. Dr. Zahra Sesay precepted and saw this patient with me. HPI:Patient is a 50 yo female with a history of psoriatic arthritis, OA and fibromyalgia who was last seen in clinic in December [address] Callejas started her on methotrexate 2.5mgs 4 tabs weekly as she was having occasional flares of psoriatic arthritis but patient has overall only noticeda 10% improvement in her pain symptoms. She continues to have diffuse pain throughout her body and states that she does not sleep well at night due to the pain. She is well endowed and has back pain,most likely from the extra weight she carries on her chest. For her fibromyalgia, she uses pain medications such as trazadone and hydrocodone/acetaminophen. She goes to counseling and takes Celexa. Dr. Callejas suggested that her PCP switch her to Cymbalta or Effexor but due to insurance issues she was not able to. She tried aquatherapy in the past and found it helpful but stopped secondary to insurance issues. She states that she walks for 15 mins twice a day. She also experiences ankle and hand pain. A 12 point ROS was performed today and is negative except for: fever, fatigue, night sweats, chest pain, anxiety, SOB, cough, constipation, joint pain, myalgias, morning stiffness for 1 hour, numbness, headaches, muscle weakness, frequent urination, chronic problems with sleeping, anxiety, depression, skin rash, hair loss. MEDICATIONS: Current outpatient prescriptions Medication Sig Dispense Refill ??? hydrocodone-acetaminophen (LORTAB;VICODIN) 5-500 mg per tablet Take 1 Tab by mouth every 4 hours. ??? pregabalin (LYRICA) 25 mg capsule Take 1 Cap by mouth at bedtime. 30 Cap 2 ??? metoprolol (LOPRESSOR) 25 mg tablet Take 1 Tab by mouth 2 times daily. 180 Tab 4 ??? fluticasone (FLONASE) 50 mcg/Actuation nasal spray 1 [place] by Nasal route daily. 1 Bottle 5 [...] every 4 hours as needed for Wheezing. ALLERGIES: Allergies Allergen Reactions ??? Latex, Natural Rubber Hives ??? Penicillins Shortness Of Breath ??? Codeine Shortness Of Breath ??? Sulfa (Sulfonamide Antibiotics) Hives ??? Aspirin Shortness Of Breath ??? Egg/poultry Hives ??? Chocolate Flavor Hives Anything with chocolate gives rash ??? Wheat Containing Prod Constipation ??? Soy Constipation O/E: Vitals:Blood pressure 124/78, pulse 56, height 153.7 cm (60.5), weight 98.431 kg (217 lb), last menstrual period 03/09/2010. General: pleasant, no distress. HEENT: normal eyes, nose and mouth. No LAD, no thyromegaly. RS: CTAB. Chest: Well endowed CVS: RRR,S 1 and S2 present Skin: no rashes NS: 5/5 strength in upper and lowe extremities. MSK: Tender points throughout body and diffusely tender (but negative control points of forehead and thumbnail). Lower back pain but also along entire spinous process. She has normal range of movement of neck, elbows, wrists, hands. She has pain overlying hand joints but no appreciated swelling. Mild bony changes. She has normal hips. She has slightly warm right knee with mild swelling and S/P right TKR. Normal left knee. She has normal ankles and feet. LABS AND INVESTIGATIONS: Due for labs today. A/P: Patient is a 50 yo female with OA, psoriatic arthritis and fibromyalgia who has no acute synovitis but has active fibromyalgia. 1. Advised stopping methotrexate if she is not feeling relief. Patient expressed desire to continuefor now but if no further benefit can stop. 2. Fibromyalgia: discussed options of adding lyrica or gabapentin or switching celexa to cymbalta. She wished to try low dose Lyrica 25mgs po qhs; she was warned of side effects of weight gain and leg edema. We have advised restaring aquatherapy and I have written a letter to PT and her insurance. Continue meditation and try to decrease pain medications. 3. She needs eye appt annually while on plaquenil. 4. We have referred her to plastic surgery to see if she is a surgical candidate for breast reduction. 5. Patient has no barriers to learning and verbalises understanding and agrees with the above plan. 6. Follow up in 4-6 months. Belen Finley MD, MD Attestation statement: I saw and examined the patient. I agree with the resident's/fellow's findings and plans as documented except as indicated in bold above. ZAHRA SESAY MD documented in this encounter Plan of Treatment Scheduled Referrals Name Type Priority Associated Diagnoses Orde r Schedule AMB CONSULT PLASTIC SURGERY Outpatient Referral Routine Back pain Ordered: 04/11/2011 documented as of this encounter Visit Diagnoses Diagnosis Psoriatic arthropathy ([facility])- Primary Psoriatic arthropathy Back pain Backache, unspecified documented in this encounter Discontinued Medications Medication Sig Discontinue Reason Start Date End Da te azithromycin (ZITHROMAX) 250 mg tabletIndications:Sinus itis, acute Take 1 Tab by mouth. Take 2 tablets (500 mg) on Day 1, followed by 1 tablet (250 mg) once daily on Days 2 through 5. Therapy completed 02/25/2011 04/11/2011 documented as of this encounter Historical Medications * This list may reflect changes made after this encounter. Medication Sig Dispensed Refills Start Date End Date hydrocodone-acetaminophen (LORTAB;VICODIN) 5-500 mg per tablet Take 1 Tab by mouth every 4 hours. 06/08/2011 added in this encounter Care Teams Hand Fretted Instrument Maker Relationship Specialty Start Date End Date Remedios Mehta MD [address] [place] [phone] PCP - General 02/19/09 01/04/15 documented as of this encounter
--- OUTSIDE RECORDS SUMMARY | 2024-06-24 02:23 | XMS_ITS | Encounter Summary ---
Author Organization [facility] Address [address] [place] [address] Care Team Providers Care Attorney General Name Role Phone Remedios Mehta MD Primary Care Provider [phone] Reason for Visit * Reason Onset Date Comments Appointment Related 08/16/2010 Encounter Details Date Type Department Care Team (Late st Contact Info) Description 08/16/2010 Telephone [facility] Rehabilitation Therapy - [facility] [address] [place] [address] Apolinar William, PT [address] [facility] [address] [place] [phone] Appointment Related Social History Tobacco Use [...] encounter Miscellaneous Notes * Telephone Encounter - Ly Sanchez - 08/16/2010 1205 EDT Patient has no insurance at this time and is working with [employer]. Not willing to take a chance on having to pay. Hopes to make next appointment on Monday. documented in this encounter Plan of Treatment Not on file documented as of this encounter Visit Diagnoses Not on filedocumented in this encounter Care Teams Attorney General Relationship Specialty Start Date End Date Remedios Mehta MD [address] [place] [phone] PCP - General 02/19/09 01/04/15 documented as of this encounter
--- OUTSIDE RECORDS SUMMARY | 2024-06-24 02:23 | XMS_ITS | Encounter Summary ---
Author Organization [facility] Address [address] [place] [address] Care Team Providers Care Agile Java Developer Name Role Phone Remedios Mehta MD Primary Care Provider [phone] Reason for Visit * Reason Onset Date Comments Appointment Related 04/15/2011 Encounter Details Date Type Department Care Team (Late st Contact Info) Description 04/15/[address] [phone] Kerry Barnhart, PT [address], [facility], [address] [place] [address] Appointment Related Social History Tobacco [...] encounter Miscellaneous Notes * Telephone Encounter - Kerry Barnhart, PT - 04/15/2011 1238 EDT AQUATIC PHYSICAL THERAPY [address] [place] [address] Telephone Intake Information for Scheduling NEW Patients for Therapy Script/referral (present in [facility], pt bringing, MD office faxing, etc.): [facility] Primary Insurance: [employer]. Patient states she's had a problem getting aquatic therapy authorized with her insurance before. If Medicaid: Have you been seen in therapy since 10-30-10? no Notes/other: Referral is for back pain, she would like her knee to be looked at as well (she never had full rehab after total knee arthroplasty). I told her we would call her insurance to check if prior auth is needed for aquatic therapy. KERRY BARNHART, PT documented in this encounter Plan of Treatment Not on file documented as of this encounter Visit Diagnoses Not on filedocumented in this encounter Care Teams Agile Java Developer Relationship Specialty Start Date End Date Remedios Mehta MD [address] [place] [phone] PCP - General 02/19/09 01/04/15 documented as of this encounter
--- OUTSIDE RECORDS SUMMARY | 2024-06-24 02:23 | XMS_ITS | Encounter Summary ---
Author Organization [facility] Address [address] [place] [address] Care Team Providers Care Mobility Architect Manager Name Role Phone Remedios Mehta MD Primary Care Provider [phone] Reason for Visit * Reason Onset Date Comments Medication Problem 02/03/2011 Encounter Details Date Type Department Care Team (Late st Contact Info) Description 02/03/[address] [address] Remedios Mehta MD [address] [place] [phone] Medication Problem Social History Tobacco Use [...] Dispensed Refills Start Date End Da te triamcinolone (NASACORT AQ) 55 mcg nasal inhaler 1 [place] by Nasal route 2 times daily. 1 Inhaler 2 02/04/2011 02/25/2011 fluticasone (FLOVENT) 110 mcg/Actuation inhaler Inhale 1 Puff as directed 2 times daily. 1 Inhaler 2 02/04/2011 02/10/2011 documented in this encounter Miscellaneous Notes * Telephone Encounter - Nayeli Swift LPN - 02/04/2011 1146 EDT Spoke with the pharmacist she is saying that the patients insurance would rather pay for a nasal steroid instead of Accolate. * Telephone Encounter - Remedios Strong MD - 02/04/2011 1041 EDT Unfortunately, there is no alternative to accolate. There is also no alternative for advair (steroid and long acting b2 agonist) but I can prescribe a different inhaled steroid - Flovent. Ask patient if she wants us to do that. * Telephone Encounter - Nayeli Swift LPN - 02/04/2011 1011 EDT Forward to her provider for thoughts on alternative medications for: Accolate and Advair. * Telephone Encounter - Jaz De Leon - 02/03/2011 1554 EDT PT CALLING UNABLE TO DRUM STENCILER SCRIPTS FROM PHARMACY FOR ACCULATE AND ADVAIR. [facility] THAT INSURANCE WILL NOT PAY FOR SCRIPTS. SUGGESTED TO ORDER AN ALTERNATIVE FOR BOTH. PT CONCERNED THAT ABOUT HAVING TO WAIT FOR HER VICODIN SHE WAS ONLY DISPENSED 30 TABS RECENTLY WILL RUN OUT WAY BEFORE 4.28.11. PLEASE CALL AND ADVISE. documented in this encounter Plan of Treatment Not on file documented as of this encounter Visit Diagnoses Not on filedocumented in this encounter Care Teams Mobility Architect Manager Relationship Specialty Start Date End Date Remedios Mehta MD [address] [place] [phone] PCP - General 02/19/09 01/04/15 documented as of this encounter
--- OUTSIDE RECORDS SUMMARY | 2024-06-24 02:23 | XMS_ITS | Encounter Summary ---
Author Organization [facility] Address [address] [place] [address] Care Team Providers Care Materials Specialist Name Role Phone Remedios Mehta MD Primary Care Provider [phone] None, Provider Primary Care Provider German PabonC Primary Care Provider [phone] Elly Ling NP Primary Care Provider [phone] Encounter Details Date Type Department Care Team (Late st Contact Info) Description 10/15/2010 Documentation Visit [address] [address] Kathy Salcedo, PT Social History Tobacco Use Types Packs/Day Years [...] documented as of this encounter Care Teams Materials Specialist Relationship Specialty Start Date End Date Remedios Mehta MD [address] [place] [phone] PCP - General 02/19/09 01/04/15 None, Provider PCP - General 01/05/15 09/23/18 German Garzon PA-C [facility] [place] [phone] PCP - General 09/28/18 05/29/22 Elly Ling NP [address] [place] [address] [place] [address] PCP - General Family Medicine - Primary Care 05/30/22 documented as of this encounter
--- OUTSIDE RECORDS SUMMARY | 2024-06-24 02:23 | XMS_ITS | Encounter Summary ---
Author Organization Health system Address [address] [place] [address] Care Team Providers Care Remote Inpatient Coder Name Role Phone Remedios Mehta MD Primary Care Provider [phone] Encounter Details Date Type Department Care Team (Late st Contact Info) Description 04/11/2011 Phlebotomy Only [address] [address] Hospital Mortician, Outpatient Encounter for long-term (current) use of [...] Comments COMPLETE BLOOD COUNT AND DIFFERENTIAL Routine 04/11/2011 11:51 EDT Encounter for long-term (current) use of other medications COMPREHENSIVE METABOLIC PANEL (CMP) Routine 04/11/2011 11:51 EDT Encounter for long-term (current) use of other medications documented in this encounter Results * HEMAGRAM AND DIFFERENTIAL (04/11/2011 11:51 EDT) WBC 6.42 4.0 - 12.4 K/cmm [facility] RBC 4.08 3.86 - 5.04 M/cmm [facility] Hemoglobin 12.7 11.6 - 15.2 gm/dl [facility] HCT 37.4 34.9 - 44.4 % [facility] MCV 92 81 - 98 fl [facility] MCH 31.1 26.7 - 33.3 pg [facility] MCHC 33.9 32.1 - 35.9 gm/dl [facility] PLT 298 141 - 320 K/cmm [facility] RDW-CV 14.0 11.7 - 14.6 % [facility] % Neutrophils 53.9 45.5 - 79.7 % [facility] % Lymphocytes 34.3 15.0 - 46.8 % [facility] % Monocytes 8.9 1.8 - 12.0 % [facility] % Eosinophils 2.3 0.6 - 6.9 % [facility] % Basophils 0.6 0.2 - 1.4 % [facility] ABS Neutrophils 3.46 2.20 - 8.85 K/cmm [facility] ABS Lymphs 2.20 1.09 - 3.30 K/cmm [facility] ABS Monocytes 0.57 0.1 - 0.8 K/cmm [facility] ABS Eosinophils 0.15 0.03 - 0.61 K/cmm [facility] ABS Basophils 0.04 0.01 - 0.11 K/cmm [facility] Type of Diff: Automated [facility] Blood specimen (specimen) 04/11/2011 11:51 EDT 04/11/2011 14:47 EDT Yovana Callejas MD PACKAGES & DNA P KERRI ORDERABLES [facility] [address] [place] [address] * COMPREHENSIVE METABOLIC PANEL (CMP) (04/11/2011 11:51 EDT) Potassium 4.7 3.5 - 5.0 mEq/L [facility] Sodium 143 136 - 145 mEq/L [facility] Chloride 106 96 - 110 mEq/L [facility] CO2 28 24 - 32 mEq/L [facility] Total Alkaline Phosphatase 62 38 - 126 U/L [facility] Bilirubin, Total <0.5 0.2 - 1.3 mg/dl [facility] AST 16 15 - 46 U/L [facility] ALT 17 9 - 52 U/L [facility] Albumin 4.0 3.4 - 4.9 g/dl [facility] Total Protein 6.9 6.5 - 8.3 g/dl [facility] Creatinine 0.70 0.7 - 1.5 mg/dl [facility] GFR, Calculated >60 ml/min/1.7 3m2 [facility] BUN 17 10 - 26 mg/dl [facility] Calcium 9.1 8.5 - 10.5 mg/dl [facility] Calculated Calcium 9.5 8.5 - 10.5 mg/dl [facility] Glucose, Serum 72 70 - 100 mg/dl [facility] Fasting? No [facility] Blood specimen (specimen) 04/11/2011 11:51 EDT 04/11/2011 14:47 EDT Yovana Callejas MD CHEMISTRY & BLOO D GAS ORDERABLES [facility] [address] [place] [address] documented in this encounter Visit Diagnoses Diagnosis Encounter for long-term (current) use of other medications documented in this encounter Care Teams Remote Inpatient Coder Relationship Specialty Start Date End Date Remedios Mehta MD [address] [place] [phone] PCP - General 02/19/09 01/04/15 documented as of this encounter
--- OUTSIDE RECORDS SUMMARY | 2024-06-24 02:23 | XMS_ITS | Encounter Summary ---
Author Organization [facility] Address [address] [place] [address] Care Team Providers Care Heater Operator Name Role Phone Remedios Mehta MD Primary Care Provider [phone] Encounter Details Date Type Department Care Team (Late st Contact Info) Description 09/06/2010 Documentation Visit [facility] Rehabilitation Therapy - [address] [phone] Kathy Figueroa PT Social History Tobacco Use Types Packs/Day [...] as of this encounter Progress Notes * Kathy Figueroa - 09/06/2010 1334 EST [facility] [address] [place] [phone] Physical Therapy Discontinue/Discharge Note Date of Service: 09/06/2010 Reason for Referral: knee pain after ERICA after TKA Referring MD: Merly Precautions: routine 1 (total visits) S: Pt cancelled follow up visit due to insurance limitations O: The patient has been seen for physical therapy since 08-09-10. Interventions included evaluationand instruction in home exercise program. Please refer to chart for details. At the time of her last visit on 08-09-10, evaluation was performed. Relevant objective findings: None since evaluation Team Communication: This note will serve as communication to PCP and other team members. A: Unable to assess. P: Discontinue Physical Therapy. The patient is invited to contact us at any time, should any problems arise, or should her plans for rehabilitation change. KATHY FIGUEROA, PT 09/06/2010 13:32 documented in this encounter Plan of Treatment Not on file documented as of this encounter Visit Diagnoses Not on filedocumented in this encounter Care Teams Heater Operator Relationship Specialty Start Date End Date Remedios Mehta MD [address] [place] [phone] PCP - General 02/19/09 01/04/15 documented as of this encounter
--- OUTSIDE RECORDS SUMMARY | 2024-06-24 02:23 | XMS_ITS | Encounter Summary ---
Author Organization [facility] Address [address] [place] [address] Care Team Providers Care Filing Clerk Name Role Phone Remedios Mehta MD Primary Care Provider [phone] Reason for Visit * Reason Onset Date Comments Physical Therapy 04/18/2011 Encounter Details Date Type Department Care Team (Late st Contact Info) Description 04/18/[address] [address] Elizabeth Busch, PT Physical Therapy Social History Tobacco Use Types [...] Miscellaneous Notes * Telephone Encounter - Dai Plattsiabell Jacobs - 04/18/2011 1010 EDT AQUATIC PHYSICAL THERAPY [address] [place] [address] A return all was placed to patient regarding insurance coverage. I spoke to the insurance company are her benefits are as follows: Effective date of 01/28/11. 30 visits per year PT/OT/SPEECH COMBINED. $500 deductible per individual. She has a pre-existing waiting period of up to 1 year per diagnosis.This information was given to patient and encouraged to call her insurance company for clarification especially about the pre-existing condition. documented in this encounter Plan of Treatment Not on file documented as of this encounter Visit Diagnoses Not on filedocumented in this encounter Care Teams Filing Clerk Relationship Specialty Start Date End Date Remedios Mehta MD [address] [place] [phone] PCP - General 02/19/09 01/04/15 documented as of this encounter
--- OUTSIDE RECORDS SUMMARY | 2024-06-24 02:23 | XMS_ITS | Encounter Summary ---
Author Organization [facility] Address [address] [place] [address] Care Team Providers Care Wire Hanger Name Role Phone Remedios Mehta MD Primary Care Provider [phone] Reason for Referral * Other Type (Routine) - Closed Specialty Diagnoses / Procedures Referred By Joao proctor Referred To Contact Diagnoses Obesity Osteoarthritis S/P TKR (total knee replacement) Knee pain, right Remedios Mehta MD [address] [place] [address] Referral ID Status Reason Start Date Expiration Date V isits Requested Visits Authorized [id number] Closed Other 09/27/2010 1 1 Question Answer Medication to be Prior Authorized: weight loss porgram for obesity and knee osteoarthrits; s/p total knee replacement Comments The purpose of this consult request is to inform the scheduling staff that a medication needs to be prior-authorized before it is prescribed and/or administered. * Consult (Routine) - Closed Specialty Diagnoses / Procedures Referred By Joao proctor Referred To Contact Diagnoses Knee pain, right Osteoarthritis S/P TKR (total knee replacement) Remedios Mehta MD [address] [place] [phone] Tahir Suarez MD [address] [place] [phone] Referral ID Status Reason Start Date Expiration Date V isits Requested Visits Authorized [id number] Closed Specialty Services Required 09/27/2010 1 1 Question Answer Reason for Request: continued pain and decreased ROM in right knee after total knee replacement (04/08) and manipulation (08/08) Comments Dr. Suarez only please Reason for Visit * Reason Comments Sore Throat for 2 days Obesity follow up Insomnia just lost insurance/ job and can't afford sleeping pills, also has restless leg syndrome Encounter Details Date Type Department Care Team (Late st Contact Info) Description 09/27/2010 11:30 EST Office Visit [address] [address] [place] [address] [place] [phone] S/P TKR (total knee replacement); Osteoarthritis; Knee pain, right; Obesity; Insomnia; Need for influenza vaccination; Acute sinusitis Social History Tobacco Use Types Packs/Day Years [...] Sign Reading Time Taken Comments Blood Pressure 112/80 09/27/2010 1131 EST Pulse 64 09/27/2010 1131 EST Temperature - - Respiratory Rate - - Oxygen Saturation - - Inhaled Oxygen Concentration - - Weight 98 kg (216 lb) 09/27/2010 1131 EST Height 152.4 cm (5') 09/27/2010 1131 EST Body Mass Index 42.18 09/27/2010 1131 EST documented in this encounter Functional Status Cognitive Status Response Date of Assessm ent Because of a physical, menta l, or emotional condition, do you have serious difficulty concentrating, remembering, or making decisions? (5 years old or older) Yes 04/15/2010 documented as of this encounter Patient Instructions * Patient Instructions* Remedios Strong MD - 09/27/2010 12:02 EST Images from the original note were not included. [facility] Patient Instructions Starting a Weight Loss Plan: After Your Visit Your Care Instructions If you are thinking about losing weight, it can be hard to know where to start. Your doctor can help you set up a weight loss plan that best meets your needs. You may want to take a class on nutrition or exercise, or join a weight loss support group. If you have questions about how to make changes to your eating or exercise habits, ask your doctor about seeing a registered dietitian or an secretary specialist. It can be a big challenge to lose weight. But you do not have to make huge changes at once. Make small changes, and stick with them. When those changes become habit, add a few more changes. If you do not think you are ready to make changes right now, try to pick a date in the future. Makean appointment to see your doctor to discuss whether the time is right for you to start a plan. Follow-up care is a gomez part of your treatment and safety. Be sure to make and go to all appointments, and call your doctor if you are having problems. It???s also a good idea to know your test results and keep a list of the medicines you take. How can you care for yourself at home? ?? Set realistic goals. Many people expect to lose much more weight than is likely. A weight loss of 5% to 10% of your body weight may be enough to improve your health. ?? Get family and friends involved to provide support. Talk to them about why you are trying to lose weight, and ask them to help. They can help by participating in exercise and having meals with you, even if they may be eating something different. ?? Find what works best for you. If you do not have time or do not like to cook, a program that offers meal replacement bars or shakes may be better for you. Or if you like to prepare meals, finding a plan that includes daily menus and recipes may be best. ?? Ask your doctor about other health professionals who can help you achieve your weight loss goals. ?? A dietitian can help you make healthy changes in your diet. ?? An secretary specialist or certified personal chef can help you develop a safe and effective exercise program. ?? A counselor or psychiatrist can help you cope with issues such as depression, anxiety, or familyproblems that can make it hard to focus on weight loss. ?? Consider joining a support group for people who are trying to lose weight. Your doctor can suggest groups in your area. When should you call for help? Watch closely for changes in your health, and be sure to contact your doctor if: ?? You need help choosing a weight loss plan. Where can you learn more? Go to www.Traddr.com.net/fahc Enter U357 in the search box to learn more about Starting a Weight Loss Plan: After Your Visit. ?? 2005 - 2008 [employer]. Care instructions adapted under license by [facility], Inc . This care instruction is for use with your licensed healthcare professional. If you have questions about a medical condition or this instruction, always ask your healthcare professional. [employer] disclaims any warranty or liability for your use of this information.[facility] Patient Instructions Saline Nasal Washes for Adults: After Your Visit Your Care Instructions Saline nasal washes help keep the nasal passages open by washing out thick or dried mucus. This simple remedy can help relieve symptoms of allergies, sinusitis, and colds. It also can make the nose feel more comfortable by keeping the mucous membranes moist. You may notice a little burning sensation in your nose the first few times you use the solution, but this usually gets better in a few days. Follow-up care is a gomez part of your treatment and safety. Be sure to make and go to all appointments, and call your doctor if you are having problems. It???s also a good idea to know your test results and keep a list of the medicines you take. How can you care for yourself at home? ?? You can buy premixed saline solution in a squeeze bottle at a drugstore. Read and follow the instructions on the label. ?? You also can make your own saline solution. (Store it at room temperature in a clean container with a tight cover.) Mix: ? teaspoon salt. ?? 1 cup water (at room temperature). ? teaspoon baking soda. ?? If you use a homemade solution, pour a small amount into a clean bowl. Using a rubber bulb syringe, squeeze the syringe and place the tip in the salt water. Pull a small amount of the salt water into the syringe by relaxing your hand. ?? Sit down with your head tilted slightly back. Do not lie down. Put the tip of the bulb syringe or the squeeze bottle a little way into one of your nostrils. Gently squirt a small amount (about 1 teaspoon) into the nostril. Repeat with the other nostril. Some sneezing and gagging are normal at first. ?? Gently blow your nose. ?? Wipe the syringe or bottle tip clean after each use. ?? Repeat this 2 or 3 times a day. ?? Use nasal washes gently if you have nosebleeds often. When should you call for help? Watch closely for changes in your health, and be sure to contact your doctor if: ?? You often get nosebleeds. ?? You have problems doing the nasal washes. Where can you learn more? Go to www.Traddr.com.net/fahc Enter B784 in the search box to learn more about Saline Nasal Washes for Adults: After Your Visit. ?? 2005 - 2008 [employer]. Care instructions adapted under license by [facility], [facility] . This care instruction is for use with your licensed healthcare professional. If you have questions about a medical condition or this instruction, always ask your healthcare professional. [employer] disclaims any warranty or liability for your use of this information. documented in this encounter Ordered Prescriptions Prescription Sig Dispensed Refills Start Date End Da te azithromycin (ZITHROMAX) 250 mg tabletIndications:Acute sinusitis Take 1 Tab by mouth. Take 2 tablets (500 mg) on Day 1, followed by 1 tablet (250 mg) once daily on Days 2 through 5. 6 Tab 0 09/27/2010 10/14/2010 documented in this encounter Progress Notes * Remedios Strong MD - 09/27/2010 1305 EST Subjective: Patient ID: Cherelle Husain is an 50 y.o. female. Chief Complaint Patient presents with ??? Sore Throat for 2 days ??? Obesity follow up ??? Insomnia just lost insurance/ job and can't afford sleeping pills, also has restless leg syndrome HPI Cherelle is here for several things but first wanted to discuss the immense financial stress she is under. Barely able to make her mortgage payments, still unemployed, and getting some assistance from the hospital for medications but it doesn't cover them all. In spite of this, she does feel gratefulfor many things and denies feeling more depressed. Main issues: 1. Thinks she may be developing a sinus infection. Typically gets them this time of year. Started out with sore throat and nasal congestion but now has facial pain and nausea. Sx for over a week. No fever, no cough, no SOB. 2. Insomnia -hasn't been able to afford trazadone; that and stress have attributed to her insomnia. Pt thinks she'll be able to black pickler the trazadone next week. 3. Flu shot - needs 4. Right knee pain - s/p TKR in March and a manipulation in July but pt is veryconcerned because she still cannot bend it beyond 90 degrees. It feels like something is stuck in the back of her knee. Pt requests a second opinion. She is unsatisfied with the answers she got at her last appt with orthopedics. Pt is upset that she is not able to exercise to the degree she was before her knee replacement 5. Wants a referral for weight loss plan if possible. Patient Active Problem List Diagnoses Code ??? [...] to encounter Medication Sig Dispense Refill ??? methocarbamol (ROBAXIN) 500 mg tablet Take 1-2 Tabs by mouth every 6 hours as needed (muscle spasms). 60 Tab 0 ??? trazodone (DESYREL) 100 mg tablet Take 1 Tab by mouth at bedtime. 30 Tab 11 ??? hydrocodone-acetaminophen (LORTAB;VICODIN) 5-500 mg per tablet Take 1-2 Tabs by mouth. TAKE 1-2TABS PO EVERY 4-6 HOURS PRN PAIN 40 Tab 0 ??? acetaminophen (TYLENOL) 650 mg tablet Take 1 Tab by mouth every 4 hours as needed for Pain. ??? PEG 3350-Electrolytes (MIRALAX) 17 gram packet Take 17 g by mouth as needed. ??? FOSINOPRIL SODIUM (MONOPRIL ORAL) Take 20 [...] occasional ROS - See HPI Objective: BP 112/80 Pulse 64 Ht 152.4 cm (60) Wt 97.977 kg (216 lb) LMP 03/09/2010 Physical Exam Constitutional: She is oriented to person, place, and time. She appears well- developed and well-nourished. HENT: Right Ear: External ear normal. Left Ear: External ear normal. Mouth/Throat: Oropharynx is clear and moist. + tenderness over frontal and maxillary sinuses Neck: Normal range of motion. Neck supple. Cardiovascular: Normal rate, regular rhythm, normal heart sounds and intact distal pulses. Pulmonary/Chest: Effort normal and breath sounds normal. Musculoskeletal: Fullness with palpation to fossa of right knee; unable to flex right leg beyond 90 degrees at knee;strength intact Neurological: She is alert and oriented to person, place, and time. She has normal reflexes. Skin: Skin is warm and dry. Psychiatric: She has a normal mood and affect. Assessment: Plan: Cherelle was seen today for sore throat, obesity and insomnia. Diagnoses and associated orders for this visit: S/p tkr (total knee replacement)/OA/knee pain - Ambulatory Consult Orthopedics Referral for weight loss plan Obesity - Weight loss plan Insomnia Reviewed sleep hygiene trazadone Need for influenza vaccination - Flu vaccine greater than or equal to 3yo split IM Acute sinusitis - azithromycin (ZITHROMAX) 250 mg tablet; Take 1 Tab by mouth. Take 2 tablets (500 mg) on Day 1, followed by 1 tablet (250 mg) once daily on Days 2 through 5. Saline lavage of nostrils F/u 1 month * Eboni Escalera - 09/27/2010 1303 EST LATEX FREE Flu vaccine administered per order of Dr Remedios Strong. Eboni Escalera [place] documented in this encounter Plan of Treatment Scheduled Referrals Name Type Priority Associated Diagnoses Order Schedule AMB CONSULT ORTHOPEDICS Outpatient Referral Routine Knee pain, right Osteoarthritis S/P TKR (total knee replacement) Ordered: 09/27/2010 AMB MEDICATION PRIOR AUTHORIZATION Outpatient Referral Routine Obesity Osteoarthritis S/P TKR (total knee replacement) Knee pain, right Ordered: 09/27/2010 documented as of this encounter Visit Diagnoses Diagnosis S/P TKR (total knee replacement) Knee joint replacement by other means Osteoarthritis Osteoarthrosis, unspecified whether generalized or localized, unspecified site Knee pain, right Pain in joint, lower leg Obesity Obesity, unspecified Insomnia Insomnia, unspecified Need for influenza vaccination Need for prophylactic vaccination and inoculation against influenza Acute sinusitis Acute sinusitis, unspecified documented in this encounter Discontinued Medications Medication Sig Discontinue Reason Start Date End Da te docusate sodium (COLACE) 100 mg capsule Take 2 Caps by mouth 2 times daily. Therapy completed 04/20/2010 09/27/2010 documented as of this encounter Orders Immunization/Injection Count Last Ordered Date First Ordered Date FLU VACCINE =>3YO SPLIT IM 1 09/27/2010 documented in this encounter Care Teams Wire Hanger Relationship Specialty Start Date End Date Remedios Mehta MD [address] [place] [phone] PCP - General 02/19/09 01/04/15 documented as of this encounter
--- OUTSIDE RECORDS SUMMARY | 2024-06-24 02:23 | XMS_ITS | Encounter Summary ---
Author Organization [facility] Address [address] [place] [address] Care Team Providers Care Java Programmer Analyst Name Role Phone Remedios Mehta MD Primary Care Provider [phone] Reason for Visit * Reason Onset Date Comments Medication Management 02/10/2011 Encounter Details Date Type Department Care Team (Late st Contact Info) Description 02/10/[address] [address] Remedios Mehta MD [address] [place] [phone] Medication Management Social History Tobacco Use Types [...] Date End Da te budesonide (PULMICORT) 200 mcg/Inhalation inhaler Inhale 1 Puff as directed 2 times daily. 1 Inhaler 2 02/10/2011 07/16/2012 documented in this encounter Miscellaneous Notes * Telephone Encounter - Nayeli Higginbotham - 02/11/2011 1020 EDT Pharmacy called, Pulmicort not available in 200mcg. Request giving pt the 180mcg in replacement. Verbal ok from CF, repeated and confirmed. NEETARN * Telephone Encounter - Nayeli Higginbotham - 02/11/2011 0827 EDT TC to pt, Cherelle states All I have right now is my rescue Albuterol. The states insurance I am on now will not pay for the Advair at all. Relayed to pt that Rx for Pulmicort is at pharmacy. Advised pt to call [facility] if that is not working to treat her symptoms. RON SANTACRUZ * Telephone Encounter - Viky Britt MD - 02/10/20112004 EDT Can we find out if she is taking advair right now? If so, the pulmicort is redundant and she does not need it * Telephone Encounter - Viky Britt MD - 02/10/20112001 EDT New rx for pulmicort sent to pharmacy. * Telephone Encounter - Tania Nguyen - 02/10/2011 1353 EDT THE FLOVENT THAT WAS CALLED IN FOR HER IS TO MUCH MONEY. SHE WAS WONDERING IF THERE WAS SOMETHING DIFFERENT THAT WAS LESS MONEY? documented in this encounter Plan of Treatment Not on file documented as of this encounter Visit Diagnoses Not on filedocumented in this encounter Discontinued Medications Medication Sig Discontinue Reason Start Date End Da te fluticasone (FLOVENT) 110 mcg/Actuation inhaler Inhale 1 Puff as directed 2 times daily. Cost of medication 02/04/2011 02/10/2011 documented as of this encounter Care Teams Java Programmer Analyst Relationship Specialty Start Date End Date Remedios Mehta MD [address] [place] [phone] PCP - General 02/19/09 01/04/15 documented as of this encounter
--- OUTSIDE RECORDS SUMMARY | 2024-06-24 02:23 | XMS_ITS | Encounter Summary ---
Author Organization [facility] Address [address] [place] [address] Care Team Providers Care Divemaster Name Role Phone Remedios Mehta MD Primary Care Provider [phone] Encounter Details Date Type Department Care Team (Late st Contact Info) Description 12/31/2010 10:33 EST - 12/31/2010 23:59 EST Hospital Encounter [facility] [address] [place], [place] [address] Yovana Callejas MD [address] [place] [address] [phone] Unspecified inflammatory polyarthropathy; Encounter for long-term (current) use of other medications Discharge Disposition: Home or Self Care Social [...] mouth 2 times daily. 08/01/2012 citalopram (CELEXA) 40 mg tabletIndications:Depres oliverio Take 1 Tab by mouth daily. 90 Tab 3 12/15/2010 02/17/2011 fluticasone (FLONASE) 50 mcg/Actuation nasal spray 1 [place] by Nasal route daily. 02/25/2011 fluticasone-salmeterol (ADVAIR DISKUS) 500-50 mcg/Dose diskus inhaler Inhale 1 Puff as directed 2 times daily. 1 Each 5 02/03/2010 01/14/2011 FOSINOPRIL SODIUM (MONOPRIL ORAL) Take 20 mg by mouth 2 times daily. Pt not sure of dose 06/22/2010 02/25/2011 hydrocodone-acetaminophe n (LORTAB;VICODIN) 5-500 mg per tablet Take 1 Tab by mouth 3 times daily. 90 Tab 3 12/02/2010 02/01/2011 hydroxychloroquine (PLAQUENIL) 200 mg tabletIndications:Arthro magalys Take 1 Tab by mouth 2 times daily. 60 Tab 11 02/17/2010 03/04/2011 ketoconazole (NIZORAL) 2 % creamIndications:Rash Apply topically daily. Apply to affect area(s) as directed. 1 Tube 1 02/17/2010 04/18/2021 loratadine (CLARITIN) 10 mg tabletIndications:Allerg ic rhinitis Take 1 Tab by mouth daily. 30 Tab 11 02/17/2010 06/08/2011 lorazepam (ATIVAN) 0.5 mg Tab Take 0.5 mg by mouth as needed. 03/05/2012 methotrexate 2.5 mg tabletIndications:Unspec ified inflammatory polyarthropathy Take 4 Tabs by mouth once a week. 16 Tab 5 12/31/2010 07/05/2011 metoprolol (LOPRESSOR) 25 mg tabletIndications:Hypert ension Take 1 Tab by mouth 2 times daily. 180 Tab 4 03/10/2010 03/30/2011 omeprazole (PRILOSEC) 20 mg capsule Take 1 Cap by mouth 2 times daily. dose increase 60 Cap 3 02/03/2010 07/12/2011 pantoprazole (PROTONIX) 40 mg tablet Take 80 mg by mouth daily. 02/25/2011 pregabalin (LYRICA) 25 mg capsule Take by mouth. 02/25/2011 tramadol (ULTRAM) 50 mg tablet Take 50 mg by mouth every 6 hours as needed. 02/17/2011 trazodone (DESYREL) 100 mg tabletIndications:Myalgi a and myositis,Arthropathy Take 1 Tab by mouth at bedtime. 30 Tab 11 06/28/2010 02/17/2011 zafirlukast (ACCOLATE) 20 mg tablet Take 20 mg by mouth 2 times daily. 01/14/2011 documented as of this encounter Discharge Disposition Disposition Code Departure Means Destination Home or Self Intermediate documented in this encounter Plan of Treatment Not on file documented as of this encounter Procedures Procedure Name Priority Date/Time Associated Diagnosis Comments COMPLETE BLOOD COUNT AND DIFFERENTIAL Routine 12/31/2010 10:41 EST Unspecified inflammatory polyarthropathy Encounter for long-term (current) use of other medications COMPREHENSIVE METABOLIC PANEL (CMP) Routine 12/31/2010 10:41 EST Unspecified inflammatory polyarthropathy Encounter for long-term (current) use of other medications documented in this encounter Results * HEMAGRAM AND DIFFERENTIAL (12/31/2010 10:41 EST) WBC 5.53 4.0 - 12.4 K/cmm [facility] RBC 4.17 3.86 - 5.04 M/cmm [facility] Hemoglobin 12.9 11.6 - 15.2 gm/dl [facility] HCT 37.0 34.9 - 44.4 % [facility] MCV 89 81 - 98 fl [facility] MCH 31.0 26.7 - 33.3 pg [facility] MCHC 34.9 32.1 - 35.9 gm/dl [facility] PLT 281 141 - 320 K/cmm [facility] RDW-CV 13.1 11.7 - 14.6 % [facility] % Neutrophils 49.8 45.5 - 79.7 % [facility] % Lymphocytes 38.5 15.0 - 46.8 % [facility] % Monocytes 7.5 1.8 - 12.0 % [facility] % Eosinophils 3.3 0.6 - 6.9 % [facility] % Basophils 0.9 0.2 - 1.4 % [facility] ABS Neutrophils 2.76 2.20 - 8.85 K/cmm [facility] ABS Lymphs 2.13 1.09 - 3.30 K/cmm [facility] ABS Monocytes 0.41 0.1 - 0.8 K/cmm [facility] ABS Eosinophils 0.18 0.03 - 0.61 K/cmm [facility] ABS Basophils 0.05 0.01 - 0.11 K/cmm [facility] Type of Diff: Automated [facility] Blood specimen (specimen) 12/31/2010 10:41 EST 12/31/2010 10:42 EST Yovana Callejas MD PACKAGES & DNA P KERRI ORDERABLES [facility] [address] [place] [address] * (ABNORMAL) COMPREHENSIVE METABOLIC PANEL (CMP) (12/31/2010 10:41 EST) Potassium 4.2 3.5 - 5.0 mEq/L [facility] Sodium 141 136 - 145 mEq/L [facility] Chloride 103 96 - 110 mEq/L [facility] CO2 29 24 - 32 mEq/L [facility] Total Alkaline Phosphatase 63 38 - 126 U/L [facility] Bilirubin, Total 0.7 0.2 - 1.3 mg/dl [facility] AST 14(L) 15 - 46 U/L [facility] ALT 29 9 - 52 U/L [facility] Albumin 4.3 3.4 - 4.9 g/dl [facility] Total Protein 6.7 6.5 - 8.3 g/dl [facility] Creatinine 0.75 0.7 - 1.5 mg/dl [facility] GFR, Calculated >60 ml/min/1.7 3m2 [facility] BUN 18 10 - 26 mg/dl [facility] Calcium 9.2 8.5 - 10.5 mg/dl [facility] Calculated Calcium 9.3 8.5 - 10.5 mg/dl [facility] Glucose, Serum 83 70 - 100 mg/dl [facility] Fasting? Yes [facility] Blood specimen (specimen) 12/31/2010 10:41 EST 12/31/2010 10:42 EST Yovana Callejas MD CHEMISTRY & BLOO D GAS ORDERABLES Performing Organization Address City/State/[facility] Co de Phone Number [facility] [address] [place] [address] documented in this encounter Visit Diagnoses Diagnosis Unspecified inflammatory polyarthropathy Encounter for long-term (current) use of other medications documented in this encounter Care Teams Divemaster Relationship Specialty Start Date End Date Remedios Mehta MD [address] [place] [phone] PCP - General 02/19/09 01/04/15 documented as of this encounter
--- OUTSIDE RECORDS SUMMARY | 2024-06-24 02:23 | XMS_ITS | Encounter Summary ---
Author Organization [facility] Address [address] [place] [address] Care Team Providers Care Polishing Pad Mounter Name Role Phone Remedios Mehta MD Primary Care Provider [phone] Reason for Visit * Reason Onset Date Comments Prior Auth, Medication 04/19/2011 Encounter Details Date Type Department Care Team (Late st Contact Info) Description 04/19/2011 Telephone [facility] Rheumatology & Immunology - [facility] [address] [place], [place] [id number] Waleska Barboza MD [address] [place] [address], [address] [place] [address] Prior Auth, Medication Social History Tobacco Use [...] Miscellaneous Notes * Telephone Encounter - Nathalia Mccormack - 04/19/2011 1534 EDT The patient has been authorized for Lyrica 25mg through [facility]. This authorization is valid from 04/19/11-04/18/13. documented in this encounter Plan of Treatment Not on file documented as of this encounter Visit Diagnoses Not on filedocumented in this encounter Care Teams Polishing Pad Mounter Relationship Specialty Start Date End Date Remedios Mehta MD [address] [place] [phone] PCP - General 02/19/09 01/04/15 documented as of this encounter
--- OUTSIDE RECORDS SUMMARY | 2024-06-24 02:23 | XMS_ITS | Encounter Summary ---
Author Organization Health system Address [address] [place] [address] Care Team Providers Care Project Controls Scheduler Name Role Phone Remedios Mehta MD Primary Care Provider [phone] Reason for Visit * Reason Comments Follow-up Status post right kn ee total knee arthroplasty, with postoperative stiffness and manipulation under anesthesia 08/15/10. Encounter Details Date Type Department Care Team (Late st Contact Info) Description 10/14/2010 14:00 EST Office Visit [facility] Total Joint Program - [address] [address] Heladio Napoles MD Total knee replacement status; Knee pain Social History Tobacco Use Types Packs/Day [...] this encounter Patient Instructions * Patient Instructions* Gene Davis - 10/14/2010 15:31 EST Get dvt ultrasound and wait for results at hospital documented in this encounter Progress Notes * Gene Davis - 11/01/2010 0759 EST [facility] PROGRESS/FOLLOWUP NOTE - 10/14/2010 SUBJECTIVE: Ms. Husain comes to clinic today status post 04/15/2010 right total knee arthroplasty with 08/15/10 manipulation under anesthesia. She returns to clinic stating that she has some significant swelling and discomfort in her right leg. She denies neurovascular changes other than some occasional paresthetic sensory changes in the fingers and toes that she associates with her fibromyalgia.The patient denies any constitutional symptoms. OBJECTIVE: The patient has 0 to 90 degrees of flexion in clinic today. She is significantly swollenthrough the right knee and lower leg, and she is tender to palpation when you squeeze the lower leg. The patient has light touch sensation intact through the ankle and toes, 1+ DP and PT pulses and 4/5 strength with flexion, extension at the ankle and toes, although this does give her significant pain. The patient has mild leg pain with passive range of motion at the ankle and toes. Her calf is swollen, yet soft. ASSESSMENT AND PLAN: Pain status post total knee arthroplasty and manipulation under anesthesia. There is possibility the patient had a DVT and therefore, she is sent to the radiology unit at [facility] where she will have a DVT ultrasound of the right leg performed and she should contact Gene Davis with the results of that study today. Other than that, we have no significant concerns for major underlying pathology as the patient's radiographs note a stable implant and she does not have evidence for compartment syndrome. The patient is advised that if her symptoms continue to improve over the coming days and weeks as we would expect that she can return to this clinic in 1 month's time. If she has a positive DVT ultrasound, she will be sent for treatment in the ER. I saw and examined the patient with the resident/fellow. I agree with the findings and plan of caredocumented in the resident's/fellow's note. Electronically Signed by Heladio Napoles MD 11/01/2010 07:59 Gene Davis MD Heladio Napoles MD [address] [place] [address] - Gene Davis MD - ALENA Job ID: SM Doc ID: [id number] Ext Doc ID: [id number] cc: * Heladio Napoles MD - 10/29/2010 1145 EST Attestation statement: I saw and examined the patient with the resident/fellow. I agree with the findings and plan of care documented in the resident's/fellow's note. * Gene Davis - 10/14/2010 1524 EST This note will be dictated to be transcribed into the EMR. documented in this encounter Plan of Treatment Not on file documented as of this encounter Procedures Procedure Name Priority Date/Time Associated Diagnosis Comments RAD US DOPPLER LOWER EXTREMITY VENOUS UNILATERAL STAT 10/14/2010 17:29 EST Knee pain KNEE 1 OR 2 VIEWS Routine 10/14/2010 14: 25 EST Total knee replacement status Knee pain KNEE 1 OR 2 VIEWS Routine 10/14/2010 14: 25 EST Total knee replacement status Knee pain documented in this encounter Results * RAD US DOPPLER LOWER EXTREMITY VENOUS UNILATERAL (10/14/2010 17:29 EST) Anatomical Region Laterality Modality Other 10/14/2010 17:2 9 EST 10/15/2010 10:36 EST Narrative 10/15/2010 10:36 EST RAD US DOPPLER LOWER EXTREMITY VENOUS UNILATERAL ??Oct 14, 2010 05:29:00 PM Signs and Symptoms/Comments: ??719.46-KNEE PAIN-I9 R leg swelling p R knee replacement, RO R leg DVT w hx of DVT in this pt Comparison: None. Findings: Color Doppler ultrasound of the right lower extremity is performed. The external iliac vein, common femoral vein, superficial femoral vein, and popliteal veins demonstrate normal respiratory phasicity, compressibility, flow, and augmentation. No thrombus is seen. The greater saphenous vein, profunda femoris, posterior tibialis, and peroneal veins demonstrate normal color Doppler flow and compressibility. Impression: Negative for deep venous thrombosis. I have personally reviewed the images and the above interpretation and agree with the findings. Procedure Note Barney Albert MD - 10/15/2010 RAD US DOPPLER LOWER EXTREMITY VENOUS UNILATERAL Oct 14, 2010 05:29:00 PM Signs and Symptoms/Comments: 719.46-KNEE PAIN-I9 R leg swelling p R knee replacement, RO R leg DVT w hx of DVT in this pt Comparison: None. Findings: Color Doppler ultrasound of the right lower extremity is performed. The external iliac vein, common femoral vein, superficial femoral vein, and popliteal veins demonstrate normal respiratory phasicity, compressibility, flow, and augmentation. No thrombus is seen. The greater saphenous vein, profunda femoris, posterior tibialis, and peroneal veins demonstrate normal color Doppler flow and compressibility. Impression: Negative for deep venous thrombosis. I have personally reviewed the images and the above interpretation and agree with the findings. Heladio Napoles MD G US ORDERABLES * KNEE 1 OR 2 VIEWS (10/14/2010 14:25 EST) Anatomical Region Laterality Modality Other 10/14/2010 14:2 5 EST 10/15/2010 17:23 EST Narrative 10/15/2010 17:23 EST KNEE 1 OR 2 VIEWS ??Oct 14, 2010 02:25:00 PM Clinical History/Comments: V43.65-TOTAL KNEE REPLACEMENT STATUS-I9 719.46-KNEE PAIN-I9 right total knee replacement due to osteoarthritis Comparison: July 28, 2010. Findings: ??Weight-bearing AP view of both knees and lateral view of the right knee were obtained. Again seen is a total knee arthroplasty on the right side. ??The hardware is intact and appears to be well seated. Again seen is a small right knee joint effusion. On the weight-bearing AP view of the left knee there is narrowing of the medial tibiofemoral compartment with a small osteophyte projecting off the lateral tibial plateau. Bony mineralization of the left knee is normal. I have personally reviewed the images and the above interpretation and agree with the findings. Procedure Note Tereso Noguera MD - 10/15/2010 KNEE 1 OR 2 VIEWS Oct 14, 2010 02:25:00 PM Clinical History/Comments: V43.65-TOTAL KNEE REPLACEMENT STATUS-I9 719.46-KNEE PAIN-I9 right total knee replacement due to osteoarthritis Comparison: July 28, 2010. Findings: Weight-bearing AP view of both knees and lateral view of the right knee were obtained. Again seen is a total knee arthroplasty on the right side. The hardware is intact and appears to be well seated. Again seen is a small right knee joint effusion. On the weight-bearing AP view of the left knee there is narrowing of the medial tibiofemoral compartment with a small osteophyte projecting off the lateral tibial plateau. Bony mineralization of the left knee is normal. I have personally reviewed the images and the above interpretation and agree with the findings. Heladio Napoles MD IMG DIAGNOSTIC IMAGI NG ORDERABLES * KNEE 1 OR 2 VIEWS (10/14/2010 14:25 EST) Anatomical Region Laterality Modality Other 10/14/2010 14:2 5 EST 10/15/2010 17:23 EST Narrative 10/15/2010 17:23 EST KNEE 1 OR 2 VIEWS ??Oct 14, 2010 02:25:00 PM Clinical History/Comments: V43.65-TOTAL KNEE REPLACEMENT STATUS-I9 719.46-KNEE PAIN-I9 right total knee replacement due to osteoarthritis Comparison: July 28, 2010. Findings: ??Weight-bearing AP view of both knees and lateral view of the right knee were obtained. Again seen is a total knee arthroplasty on the right side. ??The hardware is intact and appears to be well seated. Again seen is a small right knee joint effusion. On the weight-bearing AP view of the left knee there is narrowing of the medial tibiofemoral compartment with a small osteophyte projecting off the lateral tibial plateau. Bony mineralization of the left knee is normal. I have personally reviewed the images and the above interpretation and agree with the findings. Procedure Note Tereso Noguera MD - 10/15/2010 KNEE 1 OR 2 VIEWS Oct 14, 2010 02:25:00 PM Clinical History/Comments: V43.65-TOTAL KNEE REPLACEMENT STATUS-I9 719.46-KNEE PAIN-I9 right total knee replacement due to osteoarthritis Comparison: July 28, 2010. Findings: Weight-bearing AP view of both knees and lateral view of the right knee were obtained. Again seen is a total knee arthroplasty on the right side. The hardware is intact and appears to be well seated. Again seen is a small right knee joint effusion. On the weight-bearing AP view of the left knee there is narrowing of the medial tibiofemoral compartment with a small osteophyte projecting off the lateral tibial plateau. Bony mineralization of the left knee is normal. I have personally reviewed the images and the above interpretation and agree with the findings. Heladio Napoles MD IMG DIAGNOSTIC IMAGI NG ORDERABLES documented in this encounter Visit Diagnoses Diagnosis Total knee replacement status Knee joint replacement by other means Knee pain Pain in joint, lower leg documented in this encounter Discontinued Medications Medication Sig Discontinue Reason Start Date End Da te azithromycin (ZITHROMAX) 250 mg tabletIndications:Acute sinusitis Take 1 Tab by mouth. Take 2 tablets (500 mg) on Day 1, followed by 1 tablet (250 mg) once daily on Days 2 through 5. 09/27/2010 10/14/2010 methocarbamol (ROBAXIN) 500 mg tablet Take 1-2 Tabs by mouth every 6 hours as needed (muscle spasms). 07/13/2010 10/14/2010 hydrocodone-acetaminoph en (LORTAB;VICODIN) 5-500 mg per tablet Take 1-2 Tabs by mouth. TAKE 1-2 TABS PO EVERY 4-6 HOURS PRN PAIN 06/14/2010 10/14/2010 PEG 3350-Electrolytes (MIRALAX) 17 gram packet Take 17 g by mouth as needed. 09/27/2010 10/14/2010 documented as of this encounter Care Teams Project Controls Scheduler Relationship Specialty Start Date End Date Remedios Mehta MD [address] [place] [id number] PCP - General 02/19/09 01/04/15 documented as of this encounter
--- OUTSIDE RECORDS SUMMARY | 2024-06-24 02:23 | XMS_ITS | Encounter Summary ---
Author Organization [facility] Address [address] [place] [address] Care Team Providers Care Senior Marketing Associate Name Role Phone Remedios Mehta MD Primary Care Provider [phone] Reason for Visit * Reason Onset Date Comments Other 09/15/2010 WOULD LIKE ADDEN DUM TO LETTER WHICH WENT TO SCHOOL - ADDENDUM TO STATE THAT SHE NEEDS ACTUAL BOOKS - ATTN: KALA ROSARIO (F) [phone]. SCHOOL SAYS CAN GO ON ORIGINAL LETTER ADDENDUM DATED TODAY. Encounter Details Date Type Department Care Team (Late st Contact Info) Description 09/15/2010 Telephone [facility] Rheumatology & Immunology - [facility] [address] [place], [place] [address] Yovana Callejas MD [address] [place] [address] [phone] Other (WOULD LIKE ADDENDUM TO LETTER WHICH WENT TO SCHOOL - ADDENDUM TO STATE THAT SHE NEEDS ACTUAL BOOKS - ATTN: KALA ROSARIO (F) [phone]. [facility] SA[facility] CAN GO ON ORIGINAL LETTER ADDENDUM DATED TODAY.) Social History Tobacco Use Types Packs/Day Years [...] Telephone Encounter - Robyn Nathan RN - 09/15/2010 1424 EST Pt advised- appt made for 11/22/09. Note faxed to Maxine Rosario stating that pt needs to be seen before we will write a letter for her. * Telephone Encounter - Yovana Callejas MD - 09/15/2010 1358 EST This is going to have to be addressed through an appointment, patient has missed her last appt documented in this encounter Plan of Treatment Not on file documented as of this encounter Visit Diagnoses Not on filedocumented in this encounter Care Teams Senior Marketing Associate Relationship Specialty Start Date End Date Remedios Mehta MD [address] [place] [phone] PCP - General 02/19/09 01/04/15 documented as of this encounter
--- OUTSIDE RECORDS SUMMARY | 2024-06-24 02:23 | XMS_ITS | Encounter Summary ---
Author Organization [facility] Address [address] [place] [address] Care Team Providers Care Furnace Converter Name Role Phone Remedios Mehta MD Primary Care Provider [phone] Reason for Referral * Consult, Test and Treat (Routine) - Closed Specialty Diagnoses / Procedures [facility] Referred To Contact Diagnoses Myalgia and myositis Arthropathy Yovana Callejas MD [address] [facility] [address] [place] [address] Referral ID Status Reason Start Date Expiration Date V isits Requested Visits Authorized [id number] Closed Specialty Services Required 12/02/2010 1 1 Question Answer Reason for Request: physical therapy for degenerative arthritis in the lumbar spine. Reason for Visit * Reason Comments Fibromyalgia Pt states she is not feeling well. Has applied for disability. Encounter Details Date Type Department Care Team (Late st Contact Info) Description 12/02/2010 14:00 EST Office Visit [place] [facility] - [facility] [address] [place] [address] Yovana Callejas MD [address] [facility] [address] [place] [address] Myalgia and myositis; Arthropathy Social History Tobacco Use Types Packs/Day Years [...] Sign Reading Time Taken Comments Blood Pressure 116/76 12/02/2010 1412 EST Pulse 80 12/02/2010 1412 EST Temperature - - Respiratory Rate 16 12/02/2010 1412 EST Oxygen Saturation - - Inhaled Oxygen Concentration - - Weight 98 kg (216 lb) 12/02/2010 1412 EST Height 152.4 cm (5') 12/02/2010 1412 EST Body Mass Index 42.18 12/02/2010 1412 EST documented in this encounter [...] times daily. 90 Tab 3 12/02/2010 02/01/2011 documented in this encounter Progress Notes * Yovana Callejas MD - 12/02/2010 1421 EST Subjective: Patient ID: Cherelle Husain is an 50 y.o. female. Chief Complaint Patient presents with ??? Fibromyalgia Pt states she is not feeling well. Has applied for disability. HPI Has not been doing well for a while. Has been having a lot of pain and tingling in her feet and pain in her hands as well. Hard to get up in the am. Her fibromyalgia is at an all time flare Off of some of the medicines. Hasbeen off of Cymbalta completely for several monthsdue to cost of medicine. Off of Lyrica for the same reasons. Has been started on citalopram as of two weeks ago after being off of Cymbalta and Lyrica for nearly Has been having pain in right leg with ambulation. Feels her right knee never recovered following replacement surgery. Has trouble with going up and down the stairs. Has not fallen. Does not have full flexion or extension. Her sleep has been disturbed. Concerned about her financial situation. Also wakes up with pain in her back and feet and right leg and hands. Has not been able to afford any physical therapy, this hasbeen beneficial in the past. Patient Active Problem List Diagnoses Code ??? [...] endoscopic by dr. Hamilton ??? Knee surgery 04/15/2010 Right TKR ([place]) Family History Problem Relation Age of Onset ??? Diabetes Mother ??? High Blood Pressure Father ??? High Cholesterol Father Social History Substance Use Topics ??? Smoking status: Former Smoker ??? Smokeless tobacco: Never Used Comment: quit 20+ yr ago ??? Alcohol Use: Yes very occasional Current outpatient prescriptions ordered prior to encounter Medication Sig Dispense Refill ??? citalopram (CELEXA) 20 mg tablet Take [...] Wheat Containing Prod Constipation ??? Soy Constipation Review of Systems Constitutional: Positive for malaise/fatigue. Negative for fever, chills, weight loss and diaphoresis. HENT: Negative for hearing loss. Eyes: Negative. Respiratory: Positive for cough and wheezing. Asthma is more active Cardiovascular: Positive for palpitations (during anxiety, no panic attacks). Gastrointestinal: Having IBS symptoms. Sick to her stomach often. Genitourinary: dysuria, ongoing. Psych: depressed, frustrated and embarassed Neurological; tingling in her hands, toes, fingers. Cannot remember things, feels brain fog Migraine headaches. Skin: Rash and red spots on her face (rosacea) Musculoskeletal: Positive for myalgias, back pain and joint pain (right knee). Negative for falls. Skin: Negative. Neurological: Positive for headaches. Negative for dizziness, tingling, focal weakness, seizures and weakness. Psychiatric/Behavioral: Positive for depression. Negative for suicidal ideas, hallucinations, memory loss and substance abuse. The patient is nervous/anxious and has insomnia. - See HPI Objective: BP 116/76 Pulse 80 Resp 16 Ht 152.4 cm (60) Wt 97.977 kg (216 lb) LMP 03/09/2010 Physical Exam Nursing note and vitals reviewed. Constitutional: She is oriented to person, place, and time. She appears well- developed and well-nourished. She is tearful and restless. Sits for part of interview and then stands stating I just can't take the pain and leans on counter for several minutes. HENT: Head: Normocephalic and atraumatic. Right Ear: External ear normal. Left Ear: External ear normal. Nose: Nose normal. Eyes: Conjunctivae are normal. Right eye exhibits no discharge. Left eye exhibits no discharge. Neck: Neck supple. Cardiovascular: Normal rate. Pulmonary/Chest: Effort normal. Abdominal: Soft. Musculoskeletal: Right knee is surgically replaced, warm with well healed scar. Dramatically tender to touch over all joints and back. Has scoliosis of the lumbar spine. Fibromyalgia tender points are exquisitely tender to touch. No assistive devices present. Tender over dips but no synovitis. Neurological: She is alert and oriented to person, place, and time. She has normal reflexes. No cranial nerve deficit. She exhibits normal muscle tone. Coordination normal. Skin: Skin is warm and dry. She is not diaphoretic. Psychiatric: She has a tearful upset mood. She has episodes of crying during the exam but is able to calm her self. States she is overwhelmed but denies suicidal mood or ideas. L SPINE 4 OR MORE VIEWS: July 17, 2008 10:25:00 AM Signs and Symptoms: Neck and back pain. Rule out degenerative disc disease. Comparison: None available. Findings: AP and lateral flexion, neutral and extension views of the lumbar spine were obtained. Significant scoliotic curvature is not identified. Lumbar vertebral body heights are well maintained. There is no laurence- or retrolisthesis. There is mild disc space narrowing at L5-S1. Impression: Mild disc degeneration at L5-S1. Assessment: Patient has increased insomnia and stress and increased pain. Likely flare of fibromyalgia. Her symptoms were likely dramatically increased by the abrupt discontinuation of Cymbalta and withdrawal. She denies suicidal though but is labile today. Her pcp has started her on an SSRI which should be beneficial. Her right knee is recovering and she had an episode of decreased mood following knee replacement which is now resolving. Focus will be on controlling fibromyalgia by improving control of depression. She asked about Remicade, however, this medication would not be appropriate given that most of her symptoms are from fibromyalgia. She also has back pain and there is a history of scoliosis. We discussed injections through the pain clinic but she declines for financial reasons. We will try hydrocodone as needed for her pain. Plan: Cherelle was seen today for fibromyalgia. Diagnoses and associated orders for this visit: Myalgia and myositis - Ambulatory Consult Physical Therapy Arthropathy - Ambulatory Consult Physical Therapy hydrocodone-acetaminophen (LORTAB;VICODIN) 5-500 mg per tablet; Take 1 Tab by mouth 3 times daily. Return in two months for re-examination. Patient agrees to seek emergency help from her PCP if depression worsens. Patient was advised to contact me if there are any problems. Otherwise follow up as scheduled. NO barriers to learning identified. documented in this encounter Plan of Treatment Scheduled Referrals Name Type Priority Associated Diagnoses Orde r Schedule AMB CONSULT PHYSICAL THERAPY Outpatient Referral Routine Myalgia and myositis Arthropathy Ordered: 12/02/2010 documented as of this encounter Visit Diagnoses Diagnosis Myalgia and myositis Mylagia and myositis, unspecified Arthropathy Arthropathy, unspecified, site unspecified documented in this encounter Discontinued Medications Medication Sig Discontinue Reason Start Date End Da te duloxetine (CYMBALTA) 20 mg capsule Take 20 mg by mouth 3 times daily. 12/02/2010 12/02/2010 documented as of this encounter Historical Medications * This list may reflect changes made after this encounter. Medication Sig Dispensed Refills Start Date End Date duloxetine (CYMBALTA) 20 mg capsule Take 20 mg by mouth 3 times daily. 12/02/2010 12/02/2010 pregabalin (LYRICA) 25 mg capsule Take by mouth. 02/25/2011 fluticasone (FLONASE) 50 mcg/Actuation nasal spray 1 [place] by Nasal route daily. 02/25/2011 pantoprazole (PROTONIX) 40 mg tablet Take 80 mg by mouth daily. 02/25/2011 added in this encounter Care Teams Furnace Converter Relationship Specialty Start Date End Date Remedios Mehta MD [address] [place] [phone] PCP - General 02/19/09 01/04/15 documented as of this encounter
--- OUTSIDE RECORDS SUMMARY | 2024-06-24 02:24 | XMS_ITS | Encounter Summary ---
Author Organization [facility] Address [address] [place] [address] Care Team Providers Care Supervisor Whipped Topping Name Role Phone Remedios Mehta MD Primary Care Provider [phone] Encounter Details Date Type Department Care Team (Late st Contact Info) Description 07/01/2010 Abstract Used for ABSTRACTING Data [phone] Remedios Mehta MD [address] [place] [phone] Social History Tobacco Use Types Packs/Day [...] on filedocumented in this encounter Care Teams Supervisor Whipped Topping Relationship Specialty Start Date End Date Remedios Mehta MD [address] [place] [phone] PCP - General 02/19/09 01/04/15 documented as of this encounter
--- OUTSIDE RECORDS SUMMARY | 2024-06-24 02:24 | XMS_ITS | Encounter Summary ---
Author Organization [facility] Address [address] [place] [address] Care Team Providers Care Oracle Application Architect Name Role Phone Remedios Mehta MD Primary Care Provider [phone] Encounter Details Date Type Department Care Team (Late st Contact Info) Description 06/23/2010 Orders Only [facility] Total Joint Program - Rebecca [facility] [place] [address] Conchita Garza NP [address] [place], [place] [address] Osteoarthritis, knee; Knee arthroplasty; Cyst of both knee joints Social History Tobacco Use Types Packs/Day Years [...] Priority Date/Time Associated Diagnosis Comments RAD US GUIDANCE, BX, ASP, INJ, LOC 06/28/2010 15:23 EDT documented in this encounter Results * RAD US GUIDANCE, BX, ASP, INJ, LOC (06/28/2010 15:23 EDT) Anatomical Region Laterality Modality Other 06/28/2010 15:2 3 EDT 06/28/2010 18:49 EDT Narrative 06/28/2010 18:49 EDT US GUIDANCE, BX, ASP, INJ, LOC ??Jun 28, 2010 03:23:00 PM Signs and Symptoms/Comments: ??715.96-OSTEOARTHRITIS, KNEE-I9 V43.65-KNEE ARTHROPLASTY-I9 right total knee arthroplasty due to osteoarthritis, cyst Comparison: Radiograph 06/14/2010, ultrasound 04/18/2010, MR 02/10/2010 Procedure: Relevant imaging studies were reviewed. The procedure was discussed with Conchita Hutchison the referring clinician who has a concern for infection of a popliteal a cyst and requests that the aspirate be sent for anaerobic culture and cell count with differential. The risks and benefits of the procedure were discussed in detail with the patient. Written informed consent was obtained. The patient was positioned prone on the ultrasound table and under ultrasound guidance the patient's small 2.5 x 2.0 x 0.9 cm popliteal cyst was identified and the overlying skin was marked. The patient was prepped and draped in the usual sterile fashion. 1% lidocaine was used for local analgesia. Under ultrasound guidance a 22-gauge spinal needle was inserted into the popliteal cyst. The cyst wall was very tenacious and the internal contents were highly viscus. No appreciable fluid was able to be aspirated. An attempt to inject some sterile lidocaine into the cyst was also unsuccessful. Aspiration was attempted in multiple areas of the cyst without success. Multiple ultrasound images were saved. Of note the cyst wall is quite tender to the needle. The needle was removed and the puncture site was dressed with a sterile Band-Aid. A small amount of blood and fluid from the needle hub was sent for anaerobic culture. There was not enough material to send for cell count and differential. There were no immediate complications. Dr. Marcus Myers supervised the entire procedure. Impression: Multiple unsuccessful attempts at aspiration of a small popliteal cyst as described above. The needle was documented to be within the cyst on multiple occasions, perhaps the small amount of fluid within these small cyst was viscous and thick. A small amount of sanguinous fluid in the needle hub was sent for anaerobic culture. There was not enough material to send for cell count and differential. There were no immediate complications. I have personally reviewed the images and the above interpretation and agree with the findings. Procedure Note Geoffrey Fregoso MD - 06/28/2010 US GUIDANCE, BX, ASP, INJ, LOC Jun 28, 2010 03:23:00 PM Signs and Symptoms/Comments: 715.96-OSTEOARTHRITIS, KNEE-I9 V43.65-KNEE ARTHROPLASTY-I9 right total knee arthroplasty due to osteoarthritis, cyst Comparison: Radiograph 06/14/2010, ultrasound 04/18/2010, MR 02/10/2010 Procedure: Relevant imaging studies were reviewed. The procedure was discussed with Conchita Hutchison the referring clinician who has a concern for infection of a popliteal a cyst and requests that the aspirate be sent for anaerobic culture and cell count with differential. The risks and benefits of the procedure were discussed in detail with the patient. Written informed consent was obtained. The patient was positioned prone on the ultrasound table and under ultrasound guidance the patient's small 2.5 x 2.0 x 0.9 cm popliteal cyst was identified and the overlying skin was marked. The patient was prepped and draped in the usual sterile fashion. 1% lidocaine was used for local analgesia. Under ultrasound guidance a 22-gauge spinal needle was inserted into the popliteal cyst. The cyst wall was very tenacious and the internal contents were highly viscus. No appreciable fluid was able to be aspirated. An attempt to inject some sterile lidocaine into the cyst was also unsuccessful. Aspiration was attempted in multiple areas of the cyst without success. Multiple ultrasound images were saved. Of note the cyst wall is quite tender to the needle. The needle was removed and the puncture site was dressed with a sterile Band-Aid. A small amount of blood and fluid from the needle hub was sent for anaerobic culture. There was not enough material to send for cell count and differential. There were no immediate complications. Dr. Marcus Myers supervised the entire procedure. Impression: Multiple unsuccessful attempts at aspiration of a small popliteal cyst as described above. The needle was documented to be within the cyst on multiple occasions, perhaps the small amount of fluid within these small cyst was viscous and thick. A small amount of sanguinous fluid in the needle hub was sent for anaerobic culture. There was not enough material to send for cell count and differential. There were no immediate complications. I have personally reviewed the images and the above interpretation and agree with the findings. Conchita Garza NP IMG US ORDERABLES documented in this encounter Visit Diagnoses Diagnosis Osteoarthritis, knee Osteoarthrosis, unspecified whether generalized or localized, lower leg Knee arthroplasty Knee joint replacement by other means Cyst of both knee joints Unspecified disorder of lower leg joint documented in this encounter Care Teams Oracle Application Architect Relationship Specialty Start Date End Date Remedios Mehta MD [address] [place] [id number] PCP - General 02/19/09 01/04/15 documented as of this encounter
--- OUTSIDE RECORDS SUMMARY | 2024-06-24 02:24 | XMS_ITS | Encounter Summary ---
Author Organization [facility] Address [address] [place] [address] Care Team Providers Care Director Of Corporate Communications Name Role Phone Remedios Mehta MD Primary Care Provider [phone] Encounter Details Date Type Department Care Team (Latest Contact Info) Description 07/27/2010 13:42 EDT - 07/27/2010 23:59 EDT Hospital Encounter [facility] H[facility]ology & Oncology - [facility] [address], [place] [id number] Joey Preciado [address] [place] [address] Discharge Disposition: Auto Discharge Social History Tobacco [...] by mouth 2 times daily. 09/27/2010 11/08/2010 fluticasone-salmeterol (ADVAIR DISKUS) 500-50 mcg/Dose diskus inhaler Inhale 1 Puff as directed 2 times daily. 1 Each 5 02/03/2010 01/14/2011 FOSINOPRIL SODIUM (MONOPRIL ORAL) Take 20 mg by mouth 2 times daily. Pt not sure of dose 06/22/2010 02/25/2011 hydrocodone-acetaminop hen (LORTAB;VICODIN) 5-500 mg per tablet Take 1-2 Tabs by mouth. TAKE 1-2 TABS PO EVERY 4-6 HOURS PRN PAIN 40 Tab 0 06/14/2010 10/14/2010 hydroxychloroquine (PLAQUENIL) 200 mg tabletIndications:Arth ropathy Take 1 Tab by mouth 2 times daily. 60 Tab 11 02/17/2010 03/04/2011 ketoconazole (NIZORAL) 2 % creamIndications:Rash Apply topically daily. Apply to affect area(s) as directed. 1 Tube 1 02/17/2010 04/18/2021 loratadine (CLARITIN) 10 mg tabletIndications:Maurilio rgic rhinitis Take 1 Tab by mouth daily. 30 Tab 11 02/17/2010 06/08/2011 lorazepam (ATIVAN) 0.5 mg Tab Take 0.5 mg by mouth as needed. 03/05/2012 methocarbamol (ROBAXIN) 500 mg tablet Take 1-2 Tabs by mouth every 6 hours as needed (muscle spasms). 60 Tab 0 07/13/2010 10/14/2010 metoprolol (LOPRESSOR) 25 mg tabletIndications:Hype rtension Take 1 Tab by mouth 2 times daily. 180 Tab 4 03/10/2010 03/30/2011 omeprazole (PRILOSEC) 20 mg capsule Take 1 Cap by mouth 2 times daily. dose increase 60 Cap 3 02/03/2010 07/12/2011 PEG 3350-Electrolytes (MIRALAX) 17 gram packet Take 17 g by mouth as needed. 09/27/2010 10/14/2010 trazodone (DESYREL) 100 mg tabletIndications:Myal aleena and myositis,Arthropathy Take 1 Tab by mouth at bedtime. 30 Tab 11 06/28/2010 02/17/2011 zafirlukast (ACCOLATE) 20 mg tablet Take 20 mg by mouth 2 times daily. 01/14/2011 documented as of this encounter Discharge Disposition Disposition Code Departure Means Destination Auto Discharge Home documented in this encounter Progress Notes * Joey Preciado, SLUN[employer] CURER - 07/27/2010 1152 EDT DIVISION OF HEMATOLOGY / ONCOLOGY PROGRESS/FOLLOWUP NOTE - 07/27/2010 REASON FOR VISIT: Ongoing management of hypercoagulable syndrome in the setting of elective knee replacement surgery 04/15/2010. Ms Husain has a history of deep vein thrombosis in the setting of , 1982. MEDICAL PROBLEM LIST: 1. Hypercoagulable syndrome, right lower extremity DVT in the setting of childbirth, 1982 a. Thrombosis testing 03/25/2010, antithrombin function 88 , cardiolipin antibodies IgG, IgM negative, protein C 116, D-dimer less than 200, dilute viper venom time 32.8. Factor VIII 110, factor V Leiden negative, prothrombin gene 23052Y negative, PTT 32. Protein S 118, b. Repeat ultrasound on 05/12/2010, no evidence of deep or superficial venous thrombosis in the right lower extremity. 2. Obesity. 3. Fibromyalgia. 4. Asthma. 5. Depression. 6. Anxiety. 7. GERD. 8. Irritable bowel syndrome. PAST SURGICAL HISTORY: 1. Appendectomy age 14. 2. [place] tooth extraction age 29. 3. Carpal tunnel right age 33. 4. Carpal tunnel left age 49. 5. Right knee replacement surgery 04/15/2010. OBSTETRIC HISTORY: Number of pregnancies 4. Live births 2. Miscarriage 1 at one month . One elective . Ms Husain took oral contraceptive pills from the mid to 1982. She could not recall the kind. She also took hormone replacement therapy off and on between 1999 and 2001. Shestopped taking these when her legs felt funny. HISTORY OF PRESENT ILLNESS: Ms Husain is a 49-year-old female with a past medical history significant for thrombosis in the setting of in 1982. Ms Husain has been without any incident of thrombosis since that time. It is interesting to note that Ms Husain has a daughter with a history of 3 miscarriages and 1 , as well as with a history of thrombosis in . Ms Husain had a knee replacement surgery on 2010. This hospitalization was complicated with an asthma attack. Ms Husain was discharged with Lovenox 30 mg b.i.d. She was complaining of significant leg pain on 05/12, an ultrasound was performed, which was negative for any incident of thrombosis. Ms Husain was last seen in the clinic on 06/02/2010. She is here for further recommendations. Ms Husain is not in a wheelchair this afternoon. She is walking with the aid of a cane. She is quite frustrated by the slow progress that she is making in her recovery. She feels a Hall cyst behindher knee is causing her significant discomfort. Her employment situation is changing, she will be without a contract in the next week or so and this has caused her a great deal of stress. MEDICATIONS: Vicodin 1 to 2 tabs p.r.n. q.6 hours. Methocarbamol 1 to 2 tabs every 6 hours, Tylenol p.r.n. Colace 2 tabs daily. MiraLax 17 grams daily. Fosinopril 20 mg, twice per day. Lopressor 25 mg, twice per day. Claritin 10 mg daily. Plaquenil 200 mg daily. Advair 500/50, one puff b.i.d. Prilosec 20 mg daily. Lorazepam 0.5 mg p.r.n. [place] 24 mcg b.i.d. Zafirlukast 20 mg twice per day. Trazodone at bedtime Albuterol p.r.n. Calcium with vitamin D 600 b.i.d. Multivitamin tabs daily. Albuterol nebulizer p.r.n. for wheezing. ALLERGIES: The patient states sensitivity to PENICILLIN, CODEINE, SULFA, ASPIRIN, EGG PRODUCTS, LATEX causes hives and CHOCOLATE causes hives. REVIEW OF SYSTEMS: A 10-point review of systems was reviewed by the patient and me and is documented in the chart. Pertinent positives: Ongoing fatigue, weight gain, pain, occasional blurry vision, baseline shortness of breath with asthma, constipation, knee pain, numbness and tingling in the feet,weakness, anxiety, depression and headaches. OBJECTIVE: Temperature today is 36.5, heart rate 72, blood pressure 117/61, respirations 16. Weighttoday 99.2 kg. In general, an overweight female in no apparent distress. ECOG status 0. Lower extremities: The right leg shows a well-healed surgical scar. It is mildly erythematous compared to the left, is also edematous compared to the left and no significant tenderness to palpation. IMAGING: Ultrasound-guided biopsy on 06/28/2010: Impression multiple unsuccessful attempt to aspirate small popliteal cyst. The needle was documented to be within the cyst on multiple occasions, perhaps a small muscle within a small cyst was viscous and thick. Small amount of sanguinous fluid in theneedle hub was sent for anaerobic cultures. ASSESSMENT: Ms Husain is a 49-year-old female with a history of thrombosis in 1982 in the setting of . She had thrombosis testing done on 03/25/2010 that was negative for any inherited or acquired thrombophilia. Ms Husain had knee replacement surgery in March of 2010. This was followed by Lovenox 30 mg b.i.d. as recommended by CHEST guidelines. Ms Huasin is returning back to her baseline ambulatory status. At this time, no longer requires prophylaxis anticoagulation. Ms Husain remains very frustrated by her lack of progress in recovering from this most recent surgery. She is also quite stressed regarding her employment situation. I strongly encouraged her to seek appropriate counseling for this. PLAN: 1. Anticoagulation. Ms Husain will continue to need aggressive prophylaxis anticoagulation in any elective or nonelective surgeries or significant periods of immobility. 2. Education. I reviewed the signs and symptoms of pulmonary embolism and deep vein thrombosis withMs Husain. I also reviewed the rationale for aggressive prophylaxis. All her questions were answered to her satisfaction. 3. Health maintenance. Ms Husian has a significant amount of anxiety. She was encouraged to seek counseling as needed. 4. Followup. Ms Husain will turn on a p.r.n. basis. She was encouraged to call this office at any time with questions or concerns. Electronically Signed by Joey Preciado APRN 08/18/2010 10:53 Dictated by: Joey Preciado APRN - Joey Preciado APRN A - JG Job ID: Doc ID: [id number] Ext Doc ID: [id number] cc: MD Yonathan El MD Christine H Jones, MD Anya S Koutras, MD * Inpatient, Physician - 07/27/2010 0000 EDT documented in this encounter Plan of Treatment Not on file documented as of this encounter Visit Diagnoses Not on filedocumented in this encounter Care Teams Director Of Corporate Communications Relationship Specialty Start Date End Date Remedios Mehta MD [address] [place] [phone] PCP - General 02/19/09 01/04/15 documented as of this encounter
--- OUTSIDE RECORDS SUMMARY | 2024-06-24 02:24 | XMS_ITS | Encounter Summary ---
Author Organization [facility] Address [address] [place] [address] Care Team Providers Care Drum Barker Operator Name Role Phone Remedios Mehta MD Primary Care Provider [phone] Reason for Visit * Reason Onset Date Comments Medications Refill 07/13/2010 Encounter Details Date Type Department Care Team (Late st Contact Info) Description 07/13/2010 Refill [facility] Total Joint Program - Rebecca [address] [place], [place] [id number] Kim Holman LPN [address] [place] [address] Medications Refill Social History Tobacco Use Types [...] Dispensed Refills Start Date End Da te methocarbamol (ROBAXIN) 500 mg tablet Take 1-2 Tabs by mouth every 6 hours as needed (muscle spasms). 60 Tab 0 07/13/2010 10/14/2010 documented in this encounter Plan of Treatment Not on file documented as of this encounter Visit Diagnoses Not on filedocumented in this encounter Discontinued Medications Medication Sig Discontinue Reason Start Date End Da te methocarbamol (ROBAXIN) 500 mg tablet Take 1-2 Tabs by mouth every 6 hours as needed (muscle spasms). Reorder 06/07/2010 07/13/2010 documented as of this encounter Care Teams Drum Barker Operator Relationship Specialty Start Date End Date Remedios Mehta MD [address] [place] [phone] PCP - General 02/19/09 01/04/15 documented as of this encounter
--- OUTSIDE RECORDS SUMMARY | 2024-06-24 02:24 | XMS_ITS | Encounter Summary ---
Author Organization [facility] Address [address] [place] [address] Care Team Providers Care Hogshead Dumper Name Role Phone Remedios Mehta MD Primary Care Provider [phone] Reason for Visit * Reason Onset Date Comments Medications Refill 04/29/2010 Encounter Details Date Type Department Care Team (Late st Contact Info) Description 04/29/2010 Refill [facility] Total Joint Program - Rebecca [address] [place], [place] [phone] Kim Holman LPN [address] [place] [address] Medications Refill Social History Tobacco Use Types [...] Dispensed Refills Start Date End Da te oxycodone (ROXICODONE) 5 mg immediate release tablet Take 1-2 Tabs by mouth. Take 1-2 tabs po every 4-6 hours prn pain 60 Tab 0 04/29/2010 04/29/2010 documented in this encounter Plan of Treatment Not on file documented as of this encounter Visit Diagnoses Not on filedocumented in this encounter Discontinued Medications Medication Sig Discontinue Reason Start Date End Da te oxycodone (ROXICODONE) 5 mg immediate release tablet Take 1-3 Tabs by mouth every 3 hours as needed for Pain. Reorder 04/20/2010 04/29/2010 documented as of this encounter Care Teams Hogshead Dumper Relationship Specialty Start Date End Date Remedios Mehta MD [address] [place] [phone] PCP - General 02/19/09 01/04/15 documented as of this encounter
--- OUTSIDE RECORDS SUMMARY | 2024-06-24 02:24 | XMS_ITS | Encounter Summary ---
Author Organization [facility] Address [address] [place] [address] Care Team Providers Care Model Dresser Name Role Phone Remedios Mehta MD Primary Care Provider [phone] Reason for Visit * Reason Comments Knee Pain right knee tka Encounter Details Date Type Department Care Team (Latest Contact Info) Description 06/23/2010 9:30 EDT Office Visit [facility] Total Joint Program - Rebecca [address] [place] [address] Conchita Garza, HEIDE [address] [place], [place] [address] Osteoarthritis (Primary Dx) Social History Tobacco Use Types [...] - - Weight 98.9 kg (218 lb) 06/23/2010 0930 EDT Height 152.4 cm (5') 06/23/2010 09 EDT Body Mass Index 42.58 06/23/2010 0930 EDT documented in this encounter Functional Status Cognitive Status Response Date of Assessm ent Because of a physical, menta l, or emotional condition, do you have serious difficulty concentrating, remembering, or making decisions? (5 years old or older) Yes 04/15/2010 documented as of this encounter Progress Notes * Conchita Duenas NP - 06/23/2010 1311 EDT PROBLEM: S/P Right TKA done 04/15/10; decreased mobility; increased pain SUBJECTIVE: Cherelle returns to the office today for follow up of her knee. Was last seen here on 06/14.At this time with increasing pain labs were ordered as was an ultrasound. States symptoms of the knee remain unchanged since the time of her last visit. Continues to have discomfort in posterior kneewhich she feels is limiting her flexion. Denies any issues with nausea, vomiting, fever or chills. OBJECTIVE: This is a healthy appearing woman, awake, alert and oriented times 3, in NAD. She's a good historian. Right knee today with well healing incision with out redness, significant swelling or effusion. ROM 0 to 85. X-rays from past visit reviewed revealing well placed prosthesis with no evidence of osteolysis or movement. Labs reviewed and WNL. Ultrasound reviewed: 2.5 x 0.9 x 2.9 cm Hall's cyst present ASSESSMENT AND MEDICAL DECISION MAKING: At this time do not feel there is any issue with infection.Given she continues to have posterior knee discomfort have discussed with her today the possibilityof draining the cyst under x-ray guidance. Have discussed with her relative risks as well as benefits of this treatment. As well have discussed the possibility that this may not afford her relief from the discomfort she is having. She still does wish to move forward with this. As such we will move forward with scheduling this and she will follow up with this office following this. All questions she had today were answered and she was happy with the above plan of care. Dr. Moreland saw the patientand agreed with the above plan of care. documented in this encounter Plan of Treatment Not on file documented as of this encounter Visit Diagnoses Diagnosis Osteoarthritis- Primary Osteoarthrosis, unspecified whether generalized or localized, unspecified site documented in this encounter Care Teams Model Dresser Relationship Specialty Start Date End Date Remedios Mehta MD [address] [place] [phone] PCP - General 02/19/09 3 documented as of this encounter
--- OUTSIDE RECORDS SUMMARY | 2024-06-24 02:24 | XMS_ITS | Encounter Summary ---
Author Organization [facility] Address [address] [place] [address] Care Team Providers Care Powderman Name Role Phone eRmedios Mehta MD Primary Care Provider [phone] Encounter Details Date Type Department Care Team (Latest Contact Info) Description 05/12/2010 10:49 EDT - 05/12/2010 23:59 EDT Hospital Encounter [email or web address] Hematology & Oncology - [facility] [address], [place] [address] Joey Preciado [address] [place] [address] Discharge Disposition: Auto Discharge Social History Tobacco [...] 4-6 HOURS PRN PAIN 40 Tab 0 05/10/2010 05/17/2010 hydroxychloroquine (PLAQUENIL) 200 mg tabletIndications:Arth ropathy Take [...] Tabs by mouth every 6 hours as needed. muscle spasms 60 Tab 0 05/07/2010 05/18/2010 metoprolol (LOPRESSOR) 25 mg tabletIndications:Hype rtension Take 1 Tab by mouth 2 times daily. 180 Tab 4 03/10/2010 03/30/2011 omeprazole (PRILOSEC) 20 mg capsule Take 1 Cap by mouth 2 times daily. dose increase 60 Cap 3 02/03/2010 07/12/2011 PEG 3350-Electrolytes (MIRALAX) 17 gram packet Take 17 g by mouth as needed. 09/27/2010 10/14/2010 senna (SENOKOT) 8.6 mg tablet Take 2 Tabs by mouth daily. 04/20/2010 06/14/2010 trazodone (DESYREL) 50 mg tablet Take 1-2 Tabs by mouth at bedtime as needed for Sleep. 06/28/2010 zafirlukast (ACCOLATE) 20 mg tablet Take 20 mg by mouth 2 times daily. 01/14/2011 documented as of this encounter Discharge Disposition Disposition Code Departure Means Destination Auto Discharge Home documented in this encounter Progress Notes * Inpatient, Physician - 05/31/2010 1050 EDT * Inpatient, Physician - 05/20/2010 0215 EDT * Joey Preciado NP - 05/12/2010 0000 EDT DIVISION OF HEMATOLOGY / ONCOLOGY PROGRESS/FOLLOWUP NOTE - 05/12/2010 REASON FOR VISIT: Ongoing management of hypercoagulable syndrome in the setting of elective knee replacement surgery, 04/15/2010. Ms Husain with a distant history of deep vein thrombosis in the setting of . MEDICAL PROBLEM LIST: 1. Hypercoagulable syndrome, right lower extremity DVT in the setting of childbirth, 1982 a. Thrombosis testing 03/25/2010, antithrombin function 88 , cardiolipin antibodies IgG, IgM negative, protein C 116, D-dimer < 200, dilute viper venom time 32.8. Factor VIII 110, factor V Leiden negative, prothrombin gene 89304H negative, PTT 32. Protein S 118, 2. Obesity. 3. Fibromyalgia. 4. Asthma. 5. Depression. 6. Anxiety. 7. GERD. 8. Irritable bowel syndrome. PAST SURGICAL HISTORY: 1. Appendectomy age 14. 2. [place] tooth extraction age 29. 3. Carpal tunnel [...] OF PRESENT ILLNESS: Ms Husain is a pleasant 49-year-old female with significant past medical history as noted above. She has a history of thrombosis during her second . This occurred in the third trimester of 1982. Ms Husain was treated with a heparin drip. She does not recall any specific length of treatment afterwards. During my initial consultation with Ms Husain, on 04/08/2010, I spoke with her 28-year-old daughter . She has a significant history of losses, 3 miscarriages with one live , as well as a DVT in her seventh month of . All of these occurred in [place]. Her daughter could not recall being tested for protein C, S or factor V Leiden. All that she could recall was that she had negative cardiolipin antibodies. Ms Husain had surgery, right knee replacement, on 2010. Her surgery was complicated with an asthma attack 2 days later. Her hospitalization was 4 days. Ms Husain was discharged on Lovenox 30 mg b.i.d. She continued with the Lovenox up until approximately one week ago. There were no refills on this prescription and she did not call for a refill. Approximately 3 to 4 days later after stoppin g her Lovenox, Ms Husain noticed right leg swelling. Ms Husain is well other than pain and swelling in the right leg. She specifically denies any shortness of breath or chest pain. She has been ambulating at home either with a walker or a cane, now just with a walker. ALLERGIES: The patient denies allergies to food, medicine or latex. MEDICATIONS: Advair 500/50 twice per day. Accolate 200 mg b.i.d. Saline nasal spray p.r.n. Protonix 40 mg b.i.d. Trazodone 50 mg at bedtime. Plaquenil 200 mg b.i.d. Cymbalta 30 mg b.i.d. Calcium, vitamin D once per day. Albuterol p.r.n. Multivitamin tab once per day. Loratadine once per day. Lyrica daily. Metoprolol 25 mg b.i.d. Lorazepam 0.5 mg p.r.n. Oxycodone 5 mg at bedtime. Vicodin 5 mg every 4 to 6 hours p.r.n. REVIEW OF SYSTEMS: A 10-point review of systems was reviewed by the patient and me and is documented in the chart. Pertinent negatives: No shortness of breath, no chest pain. Pertinent positives: Fatigue, leg pain, constipation, weakness, headaches. OBJECTIVE: Temperature today is 38.6, heart rate 68, blood pressure 110/71, respirations 16, hiansx19.8 kg. In general, an overweight female in no apparent distress. ECOG status 0. Neck supple, no lymphadenopathy. Lungs clear to auscultation in all urias. Cardiac: S1, S2 with a regular rate and rhythm. No gallop, rub or murmur. Abdomen soft, nontender, nondistended with positive bowelsounds. No hepatomegaly or splenomegaly. Lower extremities: The right knee has a well-healed surgical scar. There is no sign of infection. The right calf is edematous with tenderness to palpation in the popliteal area and ankle. There is no tenderness to palpation up in the thigh area. LABORATORY DATA: 04/20/2010 WBC 7.45, hemoglobin 8.8, hematocrit 24.6, platelets 371. From 04/18: Sodium 132, potassium 4.2, chloride 93, CO2 22, BUN 9, serum creatinine 0.75. ASSESSMENT: Ms Husain is a pleasant 49-year-old female who had distant history of thrombosis in the setting of . She had thrombosis testing done on 03/25/2010 that was negative for any inherited or acquired thrombophilia. Ms Husain recently had a knee replacement surgery on 04/15/2010. Shehad approximately 2 weeks of prophylaxis Lovenox 30 mg b.i.d. She has not had any for approximately1 week. She is presenting today with knee pain. I am concerned that she may have developed a thrombus in the setting of surgery and accompanying immobility. In reviewing her initial risk factors, brinda have a history of thrombosis. In reviewing her thrombosis panel, while her antithrombin function was normal, it was on the low side of normal. Ms Husain's weight is a risk factor for her. Basedon her presentation today we will get an ultrasound to rule out thrombosis. PLAN: 1. Imaging. We will get a repeat ultrasound today. 2. Anticoagulation. Should this show a thrombus, Ms Husain will get full-dose Lovenox, bridged to warfarin, and be treated for 3 months. Should this be negative for thrombosis, she will go back to prophylaxis dosing of Lovenox 30 mg b.i.d. for 1 month. 3. Education. I reviewed the signs and symptoms of pulmonary embolism and deep vein thrombosis withMs Husain. I also reviewed the rationale for proceeding with the thrombosis testing. All her questions were answered to her satisfaction. 4. Followup. We will see Ms Husain in 2 weeks. ADDENDUM: US 05/12/2010; Impression, no evidence of deep or superficial venous thrombosis in the right lower extremity. Electronically Signed by Joey Preciado APRN 05/26/2010 17:10 Dictated by: Joey Preciado APRN - Joey Preciado APRN - [facility] Job ID: Doc ID: [id number] [facility] Doc ID: [id number] cc: MD Yonathan El MD Christine H Jones, MD Anya S Koutras, MD documented in this encounter Miscellaneous Notes * Scanned Note-Null - Inpatient, Physician - 05/31/2010 1048 EDT documented in this encounter Plan of Treatment Not on file documented as of this encounter Visit Diagnoses Not on filedocumented in this encounter Care Teams Powderman Relationship Specialty Start Date End Date Remedios Mehta MD [address] [place] [phone] PCP - General 02/19/09 01/04/15 documented as of this encounter
--- OUTSIDE RECORDS SUMMARY | 2024-06-24 02:24 | XMS_ITS | Encounter Summary ---
Author Organization [facility] Address [address] [place] [address] Care Team Providers Care Animal Breeder Name Role Phone Remedios Mehta MD Primary Care Provider [phone] Encounter Details Date Type Department Care Team (Late st Contact Info) Description 06/11/2010 Orders Only [facility] Total Joint Program - [address] [place] [address] Conchita Garza NP [address] [place], [place] [id number] Total knee replacement status (Primary Dx) Social History Tobacco Use Types [...] Comments KNEE 1 OR 2 VIEWS Routine 06/14/2010 8:32 EDT Total knee replacement status KNEE 1 OR 2 VIEWS Routine 06/14/2010 8:32 EDT Total knee replacement status documented in this encounter Results * KNEE 1 OR 2 VIEWS (06/14/2010 8:32 EDT) Anatomical Region Laterality Modality Other 06/14/2010 8:32 EDT 06/14/2010 9:56 EDT Narrative 06/14/2010 9:56 EDT AP and lateral views of the right knee and AP view of the left knee dated ??Jun 14, 2010 08:32:21 AM Clinical history: V43.65-TOTAL KNEE REPLACEMENT STATUS-I9 right total knee replacement due to osteoarthritis Comparison: Knee radiographs dated April 15, 2010 and January 26, 2010. Impression: Right knee: AP and lateral views of the right knee were obtained in this patient status post total arthroplasty. The tibial and femoral components of the prosthesis appear well positioned without evidence of failure or loosening. There is also evidence of posterior resurfacing of the patella. The overall alignment of the knee is satisfactory. There is no evidence of acute fracture or malalignment. There is a small suprapatellar joint effusion. Soft tissues are otherwise grossly unremarkable. Left knee: AP view of the left knee show no acute osseous abnormality. The lack of a lateral view limits the assessment for joint effusion and evaluation of the patellofemoral compartment. Moderate joint space narrowing seen on the medial femorotibial compartment. Soft tissues are grossly unremarkable. Procedure Note 06/14/2010 AP and lateral views of the right knee and AP view of the left knee dated Jun 14, 2010 08:32:21 AM Clinical history: V43.65-TOTAL KNEE REPLACEMENT STATUS-I9 right total knee replacement due to osteoarthritis Comparison: Knee radiographs dated April 15, 2010 and January 26, 2010. Impression: Right knee: AP and lateral views of the right knee were obtained in this patient status post total arthroplasty. The tibial and femoral components of the prosthesis appear well positioned without evidence of failure or loosening. There is also evidence of posterior resurfacing of the patella. The overall alignment of the knee is satisfactory. There is no evidence of acute fracture or malalignment. There is a small suprapatellar joint effusion. Soft tissues are otherwise grossly unremarkable. Left knee: AP view of the left knee show no acute osseous abnormality. The lack of a lateral view limits the assessment for joint effusion and evaluation of the patellofemoral compartment. Moderate joint space narrowing seen on the medial femorotibial compartment. Soft tissues are grossly unremarkable. Conchita Greg JAEGER IMG DIAGNOSTIC IMAGI NG ORDERABLES * KNEE 1 OR 2 VIEWS (06/14/2010 8:32 EDT) Anatomical Region Laterality Modality Other 06/14/2010 8:32 EDT 06/14/2010 9:56 EDT Narrative 06/14/2010 9:56 EDT AP and lateral views of the right knee and AP view of the left knee dated ??Jun 14, 2010 08:32:21 AM Clinical history: V43.65-TOTAL KNEE REPLACEMENT STATUS-I9 right total knee replacement due to osteoarthritis Comparison: Knee radiographs dated April 15, 2010 and January 26, 2010. Impression: Right knee: AP and lateral views of the right knee were obtained in this patient status post total arthroplasty. The tibial and femoral components of the prosthesis appear well positioned without evidence of failure or loosening. There is also evidence of posterior resurfacing of the patella. The overall alignment of the knee is satisfactory. There is no evidence of acute fracture or malalignment. There is a small suprapatellar joint effusion. Soft tissues are otherwise grossly unremarkable. Left knee: AP view of the left knee show no acute osseous abnormality. The lack of a lateral view limits the assessment for joint effusion and evaluation of the patellofemoral compartment. Moderate joint space narrowing seen on the medial femorotibial compartment. Soft tissues are grossly unremarkable. Procedure Note 06/14/2010 AP and lateral views of the right knee and AP view of the left knee dated Jun 14, 2010 08:32:21 AM Clinical history: V43.65-TOTAL KNEE REPLACEMENT STATUS-I9 right total knee replacement due to osteoarthritis Comparison: Knee radiographs dated April 15, 2010 and January 26, 2010. Impression: Right knee: AP and lateral views of the right knee were obtained in this patient status post total arthroplasty. The tibial and femoral components of the prosthesis appear well positioned without evidence of failure or loosening. There is also evidence of posterior resurfacing of the patella. The overall alignment of the knee is satisfactory. There is no evidence of acute fracture or malalignment. There is a small suprapatellar joint effusion. Soft tissues are otherwise grossly unremarkable. Left knee: AP view of the left knee show no acute osseous abnormality. The lack of a lateral view limits the assessment for joint effusion and evaluation of the patellofemoral compartment. Moderate joint space narrowing seen on the medial femorotibial compartment. Soft tissues are grossly unremarkable. Conchita Garza NP IMG DIAGNOSTIC IMAGI NG ORDERABLES documented in this encounter Visit Diagnoses Diagnosis Total knee replacement status- Primary Knee joint replacement by other means documented in this encounter Care Teams Animal Breeder Relationship Specialty Start Date End Date Remedios Mehta MD [address] [place] [phone] PCP - General 02/19/09 01/04/15 documented as of this encounter
--- OUTSIDE RECORDS SUMMARY | 2024-06-24 02:24 | XMS_ITS | Encounter Summary ---
Author Organization [facility] Address [address] [place] [address] Care Team Providers Care Assistant Manager Pt Name Role Phone Remedios Mehta MD Primary Care Provider [phone] Reason for Visit * Reason Comments Knee Pain right knee pain - ba shankar's cyst removal 06.28.10 Encounter Details Date Type Department Care Team (Late st Contact Info) Description 06/30/2010 9:00 EDT Office Visit [facility] Total Joint Program - [address] [place], [place] [id number] Yonathan Moreland MD OA (osteoarthritis) of knee; Knee joint replacement by other means Social History Tobacco Use Types Packs/Day Years [...] * Patient Instructions* Yonathan Moreland MD - 07/01/2010 8:41 EDT Consider manipulation under anesthesia limited RTW capacity 4 hours per day. Continue home there. ex program documented in this encounter Progress Notes * Yonathan Moreland MD - 07/02/2010 1029 EDT [facility] PROGRESS/FOLLOWUP NOTE - 06/30/2010 PROBLEM: Status post right total knee arthroplasty 04/15/10 with anterior and posterior knee pain and difficulty recovering motion. SUBJECTIVE: Cherelle returns following ultrasound-guided attempted aspiration of her Hall cyst. A few drops of a typical ganglion/Hall cyst fluid were aspirated. No evidence of infection on cell count. The patient has had previous office notes and imaging studies reviewed. Procedure report reviewed. The patient is still frustrated about pain in the back of her knee. I talked about the role for manipulation under anesthesia to help free up her patellofemoral mechanism and perhaps spontaneously rupture her Hall cyst. In addition, I spoke briefly about the role for open excision of her Hall's cyst. She does not want to consider either of these at this time, but will call if she would like to take either of these steps. We spoke about the relative risks and benefits of manipulation under anesthesia. After healthy discussion we also collectively agreed to go ahead with a modified duty return to work status. Note provided for 4 hours a day starting next Monday. Follow up offered in 1 month. I have encouraged Cherelle to consider EUA, ERICA and corticosteroid injection. Electronically Signed by Yonathan Moreland MD 07/02/2010 10:29 Yonathan Moreland MD - Yonathan Moreland MD - [facility] Job ID: Doc ID: [id number] [facility] Doc ID: [id number] cc: Remedios Strong MD * Yonathan Moreland MD - 07/01/2010 0840 EDT [facility] encounter documentation completed both in PRISM andvia dictated note. Please refer to dictated note for details. Yonathan Moreland M.D. documented in this encounter Plan of Treatment Not on file documented as of this encounter Visit Diagnoses Diagnosis OA (osteoarthritis) of knee Osteoarthrosis, unspecified whether generalized or localized, lower leg Knee joint replacement by other means documented in this encounter Care Teams Assistant Manager Pt Relationship Specialty Start Date End Date Remedios Mehta MD [address] [place] [phone] PCP - General 02/19/09 01/04/15 documented as of this encounter
--- OUTSIDE RECORDS SUMMARY | 2024-06-24 02:24 | XMS_ITS | Encounter Summary ---
Author Organization [facility] Address [address] [place] [address] Care Team Providers Care Dipper Clock And Watch Hands Name Role Phone Remedios Mehta MD Primary Care Provider [phone] Encounter Details Date Type Department Care Team (Latest Contact Info) Description 05/17/2010 13:38 EDT - 05/17/2010 23:59 EDT Hospital Encounter [facility] - [address] [place] [address] Yonathan Moreland MD Discharge Disposition: Home or [...] 4-6 HOURS PRN PAIN 40 Tab 0 05/17/2010 05/27/2010 hydroxychloroquine (PLAQUENIL) 200 mg tabletIndications:Arth ropathy Take [...] Code Departure Means Destination Home or Self [facility] documented in this encounter Plan of Treatment Not on file documented as of this encounter Visit Diagnoses Not on filedocumented in this encounter Care Teams Dipper Clock And Watch Hands Relationship Specialty Start Date End Date Remedios Mehta MD [address] [place] [phone] PCP - General 02/19/09 01/04/15 documented as of this encounter
--- OUTSIDE RECORDS SUMMARY | 2024-06-24 02:24 | XMS_ITS | Encounter Summary ---
Author Organization [facility] Address [address] [place] [address] Care Team Providers Care Screwhead Polisher Name Role Phone Remedios Mehta MD Primary Care Provider [phone] Reason for Visit * Reason Onset Date Comments Medications Refill 05/27/2010 Encounter Details Date Type Department Care Team (Late st Contact Info) Description 05/27/2010 Refill [facility] Total Joint Program - [address] [place], [place] [phone] Conchita Garza, HEIDE [address] [place], [place] [phone] Medications Refill Social History Tobacco Use Types [...] 4-6 HOURS PRN PAIN 40 Tab 0 05/27/2010 06/14/2010 documented in this encounter Plan of Treatment Not on file documented as of this encounter Visit Diagnoses Not on filedocumented in this encounter Discontinued Medications Medication Sig Discontinue Reason Start Date End Da te hydrocodone-acetaminophen (LORTAB;VICODIN) 5-500 mg per tablet Take 1-2 Tabs by mouth. TAKE 1-2 TABS PO EVERY 4-6 HOURS PRN PAIN Reorder 05/17/2010 05/27/2010 documented as of this encounter Care Teams Screwhead Polisher Relationship Specialty Start Date End Date Remedios Mehta MD [address] [place] [phone] PCP - General 02/19/09 01/04/15 documented as of this encounter
--- OUTSIDE RECORDS SUMMARY | 2024-06-24 02:24 | XMS_ITS | Encounter Summary ---
Author Organization [facility] Address [address] [place] [address] Care Team Providers Care Gaming Pit Boss Name Role Phone Remedios Mehta MD Primary Care Provider [phone] Reason for Visit * Reason Onset Date Comments Medications Refill 04/27/2010 Encounter Details Date Type Department Care Team (Late st Contact Info) Description 04/27/2010 Refill [facility] Total Joint Program - [address] [place], [place] [phone] Kim Holman LPN [address] [place] [address] Medications Refill Social History Tobacco Use Types [...] 4-6 HOURS PRN PAIN 40 Tab 0 04/27/2010 05/10/2010 documented in this encounter Plan of Treatment Not on file documented as of this encounter Visit Diagnoses Not on filedocumented in this encounter Care Teams Gaming Pit Boss Relationship Specialty Start Date End Date Remedios Mehta MD [address] [place] [phone] PCP - General 02/19/09 01/04/15 documented as of this encounter
--- OUTSIDE RECORDS SUMMARY | 2024-06-24 02:24 | XMS_ITS | Encounter Summary ---
Author Organization [facility] Address [address] [place] [address] Care Team Providers Care Landscaping And Groundskeeping Laborer Name Role Phone Remedios Mehta MD Primary Care Provider [phone] Encounter Details Date Type Department Care Team (Latest Contact Info) Description 06/02/2010 10:02 EDT - 06/02/2010 23:59 EDT Hospital Encounter [facility] Hematology & Oncology - [facility] [address] [place], [place] [address] Joey Preciado [address] [place] [address] Discharge Disposition: Home or Self Care Social [...] PRN PAIN 40 Tab 0 05/27/2010 06/14/2010 hydroxychloroquine (PLAQUENIL) 200 mg tabletIndications:Arth ropathy Take [...] as needed. muscle spasms 60 Tab 0 05/18/2010 06/07/2010 metoprolol (LOPRESSOR) 25 mg tabletIndications:Hype rtension Take [...] Code Departure Means Destination Home or Self Shelter documented in this encounter Progress Notes * Joey Preciado NP - 06/02/2010 0749 EDT DIVISION OF HEMATOLOGY / ONCOLOGY PROGRESS/FOLLOWUP NOTE - 06/02/2010 REASON FOR VISIT: Ongoing management of hypercoagulable [...] 110, factor V Leiden negative, prothrombin gene 98488A negative, PTT 32. Protein S 118, b. Repeat ultrasound on 05/12/2010, no evidence of deep or superficial venous thrombosis in the right lower extremity. 2. Obesity. 3. Fibromyalgia. 4. Asthma. 5. Depression. 6. Anxiety. 7. GERD. 8. Irritable bowel syndrome. PAST SURGICAL HISTORY: 1. Appendectomy age 14. 2. Mack tooth extraction age 29. 3. Carpal tunnel [...] legs felt funny. HISTORY OF PRESENT ILLNESS: Ms. Husain is a pleasant 49-year-old female with a past medical history significant for thrombosis in the setting of . This occurred in 1982. Ms. Husain has been without any incident of thrombosis since that time. It is also interesting to note that Ms Husain's daughter has had a history of 3 miscarriages with 1 , as well as history of thrombosis in as well. Ms. Husain had surgery on 2010. This hospitalization was complicated with an asthma attack. Ms Husain has been using Lovenox 30 mg b.i.d. since that time. She was last seen in the clinic on 05/12/2010. At that time she was complaining of significant discomfort in her right leg. Repeat ultrasound showed no incident of thrombosis. Ms Husain is here for further follow-up. Ms Husain is not recovering as quickly as she would like to. She is attending physical therapy 3 times per week, but is not where she had hoped to be. Ms Husain is also having some significant emotional difficulties secondary to this injury. She feels that she is being a burden to her friends. She misses financial independence as well as not being able to take full-time care of her dog . ALLERGIES: The patient states sensitivity to food, medicine or latex. MEDICATIONS: Advair 500/50 twice per day. Accolate 200 mg b.i.d. Saline nasal spray p.r.n. Protonix 40 mg b.i.d. Trazodone 50 mg at bedtime. Plaquenil 200 mg b.i.d. Cymbalta 30 mg b.i.d. Calcium, vitamin D once per day. Albuterol p.r.n. Multivitamin tab once per day. Loratadine once per day. Lyrica daily. Metoprolol 25 mg b.i.d. Lorazepam 0.5 mg p.r.n. Vicodin 5 mg every 4 to 6 hours p.r.n. Lovenox, 30mg SQ, BID REVIEW OF SYSTEMS: A 10-point review of systems was reviewed by the patient and myself and is documented in the chart. Pertinent negatives: No shortness of breath or chest pain. Pertinent positives: Fatigue, anxiety, knee pain, constipation, headaches. OBJECTIVE: Temperature today is 36.5, heart rate 71, blood pressure 129/55, respirations 16. Weighttoday is 99.7 kilograms. Remainder of physical exam was deferred. Entire 40 minute session was spent counseling and offering emotional support. ASSESSMENT: Ms Husain is a pleasant 49-year-old female with a distant history of thrombosis, provoked in the setting of . She had thrombosis testing done on 03/25/2010 that was negative for any inherited or acquired thrombophilia. Ms Husain is currently being treated with Lovenox 30 mg b.i.d. for knee replacement surgery, as recommended by CHEST guidelines. We will make no changes in her current medical management. Ms Husain today was clearly upset secondary to not being able to return back to work. I strongly encouraged her to seek appropriate counseling for this. PLAN: 1. Anticoagulation. Ms Husain will remain on Lovenox for a full 30 days. She has another to 12 days to complete this. Should Ms Husain have continued difficulty where she will be out of work until the end of June, we will consider placing her on warfarin. However, if she continues to make progress as she has been, she will stop in 12 days with her anticoagulation. 2. Education. I reviewed the signs and symptoms of pulmonary embolism and deep vein thrombosis withMs Husain. I also reviewed the rationale for continued treatment. All her questions were answered to her satisfaction 3. Health maintenance. Did discuss a referral to counseling for her anxiety. 4. Followup. We will see Ms Husain in 1 month. She was encouraged to call this office at any time with questions or concerns. Electronically Signed by Joey Preciado APRN 06/14/2010 09:56 Dictated by: Joey Preciado APRN - Joey Preciado APRN A - MLW Job ID: SM Doc ID: [id number] Ext Doc ID: [id number] cc: MD Yonathan El MD Christine H Jones, MD Anya S Koutras, MD documented in this encounter Miscellaneous Notes * Scanned Note-Null - Inpatient, Physician - 06/02/2010 0000 EDT documented in this encounter Plan of Treatment Not on file documented as of this encounter Visit Diagnoses Not on filedocumented in this encounter Care Teams Landscaping And Groundskeeping Laborer Relationship Specialty Start Date End Date Remedios Mehta MD [address] [place] [phone] PCP - General 02/19/09 01/04/15 documented as of this encounter
--- OUTSIDE RECORDS SUMMARY | 2024-06-24 02:24 | XMS_ITS | Encounter Summary ---
Author Organization [facility] Address [address] [place] [address] Care Team Providers Care Gift Basket Packer Name Role Phone Remedios Mehta MD Primary Care Provider + [phone] Encounter Details Date Type Department Care Team (Latest Contact Info) Description 08/02/2010 13:43 EDT - 08/02/2010 15:03 EDT Hospital Encounter [facility] Perioperative Services - [address] [id number] Yonathan Moreland MD Discharge Disposition: Home or [...] Sign Reading Time Taken Comments Blood Pressure 108/64 08/02/2010 1422 EDT Pulse 62 08/02/2010 1422 EDT Temperature 36 ??C (96.8 ??F) 08/02/2010 1422 EDT Respiratory Rate 16 08/02/2010 1422 EDT Oxygen Saturation 97% 08/02/2010 1422 EDT Inhaled Oxygen Concentration - - Weight [...] in this encounter Progress Notes * Nathalia Garcia RN - 08/02/[address] Moreland and Dr Pelaez came and talked to pt and decision made to cxl surgery because pt ate. She will be rescheduled * Nathalia Garcia RN - 08/02/2010 1419 EDT Pt ate eggs,ham and macedonian muffin finishing at [address] Pelaez notified he will check with Dr Moreland and call us back documented in this encounter H&P Notes * Inpatient, Physician - 08/02/2010 0000 EDT documented in this encounter Procedure Notes * Inpatient, Physician - 08/02/2010 0000 EDTAssociated Order(s): ECG REPORT - SCANNED * Inpatient, Physician - 08/02/2010 0000 EDTAssociated Order(s): ORDERS - SCANNED documented in this encounter OR Notes * Anesthesia Preprocedure Evaluation - Inpatient, Physician - 08/02/2010 0000 EDT * OR PreOp - Inpatient, Physician - 08/02/2010 0000 EDT * OR PreOp - Inpatient, Physician - 08/02/2010 0000 EDT documented in this encounter Miscellaneous Notes * Scanned Note-Null - Inpatient, Physician - 08/02/2010 0000 EDT * Scanned Note-Null - Inpatient, Physician - 08/02/2010 0000 EDT * Scanned Note-Null - Inpatient, Physician - 08/02/2010 0000 EDT documented in this encounter Plan of Treatment Not on file documented as of this encounter Procedures Procedure Name Priority Date/Time Associated Diagnosis Comments ECG REPORT - SCANNED 08/09/2010 23:00 EDT ORDERS - SCANNED 08/09/2010 23:0 0 EDT documented in this encounter Results * ORDERS - SCANNED (08/09/2010 23:00 EDT) 08/09/2010 23:0 0 EDT Narrative Procedure Note Inpatient, Physician - 08/02/2010 0:00 EDT Physician Inpatient MD ADMISSION ORDERAB LES * ECG REPORT - SCANNED (08/09/2010 23:00 EDT) 08/09/2010 23:0 0 EDT Narrative Procedure Note Inpatient, Physician - 08/02/2010 0:00 EDT Physician Inpatient MD PROCEDURE/MINOR S URGICAL ORDERABLES documented in this encounter Visit Diagnoses Not on filedocumented in this encounter Active and Recently Administered Medications Orders Medications Ordered That Max ht Not Have Been Administered Count Last Ordered Date First Ordered Date lactated ringers (LR) infusion 1 08/02/2010 Nursing Count Last Ordered Date First Orde red Date INSERT PERIPHERAL IV 1 08/02/2010 documented in this encounter Care Teams Gift Basket Packer Relationship Specialty Start Date End Date Remedios Mehta MD [address] [place] [address] [phone] PCP - General 02/19/09 01/04/15 documented as of this encounter
--- OUTSIDE RECORDS SUMMARY | 2024-06-24 02:24 | XMS_ITS | Encounter Summary ---
Author Organization [facility] Address [address] [place] [address] Care Team Providers Care Metal Bonding Assembler Name Role Phone Remedios Mehta MD Primary Care Provider [phone] Reason for Visit * Reason Comments Fibromyalgia Cyst Back of right leg, s sue knee as surgery Encounter Details Date Type Department Care Team (Late st Contact Info) Description 06/28/2010 14:15 EDT Office Visit [facility] Rheumatology & Immunology - [facility] [address] [place] [address] Yovana Callejas MD [address] [place] [address] [phone] Myalgia and myositis; Arthropathy Social History [...] Sign Reading Time Taken Comments Blood Pressure 110/64 06/28/2010 1551 EDT Pulse 72 06/28/2010 1551 EDT Temperature - - Respiratory Rate - - Oxygen Saturation - - Inhaled Oxygen Concentration - - Weight 98 kg (216 lb) 06/28/2010 1551 EDT Height 152.4 cm (5') 06/28/2010 1551 EDT Body Mass Index 42.18 06/28/2010 1551 EDT documented in this encounter Functional Status [...] (DESYREL) 100 mg tabletIndications:Myalgia and myositis,Arthropathy Take 1 Tab by mouth at bedtime. 30 Tab 11 06/28/2010 02/17/2011 documented in this encounter Progress Notes * Yovana Callejas MD - 06/28/2010 1616 EDT Subjective: Patient ID: Cherelle Husain is an 50 y.o. female. Chief Complaint Patient presents with ??? Fibromyalgia ??? Cyst Back of right leg, same knee as surgery HPI Had knee replacement is having problems with a cyst in the back of her knee. Has decreased range ofmotion in her right knee. Had a procedure earlier today to try to remove the mass but it was unsuccessful. 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 Knee surgery was April 15, 2010. Returns to work on Monday. Has pain from fibromyalgia still on the trazodone and lyrica as well as cymbalta. Has increased hertrazodone. Has more anxiety, has been out of work since 04/08, has been taking higher doses of her Trazodone to sleep, also has some hyrdrocodone for her knee pain but is working to decrease her dose of this medication. Has been back at home, had an episode of depression several weeks after her kneewas replaced but now doing better. Walks her dog every day and tries to stay active. Patient Active Problem List Diagnoses Code ??? [...] Medial meniscus tear 836.0G ??? Thrombophlebitis 451.9G Past Medical History Diagnosis Date ??? Fibromyalgia ??? Obesity ??? Asthma ??? Depression ??? Anxiety ??? GERD (gastroesophageal reflux disease) ??? Fibromyalgia ??? confirmed 1979,1982 2 vaginal deliveries Past Surgical History Procedure Date ??? Appendectomy ??? Hernia repair ??? Carpal tunnel release 22 years ago right endoscopic by dr. Hamilton Family History Problem Relation Age of Onset ??? Diabetes Mother ??? High Blood Pressure Father ??? High Cholesterol Father Social History Substance Use Topics ??? Tobacco Use: Quit quit 20+ yr ago ??? Alcohol Use: Yes very occasional Current outpatient prescriptions ordered prior to encounter Medication Sig Dispense Refill ??? hydrocodone-acetaminophen (LORTAB;VICODIN) 5-500 mg per tablet Take 1-2 Tabs by mouth. TAKE 1-2TABS PO EVERY 4-6 HOURS PRN PAIN 40 Tab 0 ??? methocarbamol (ROBAXIN) 500 mg tablet Take 1-2 Tabs by mouth every 6 hours as needed (muscle spasms). 60 Tab 0 ??? acetaminophen (TYLENOL) 650 mg tablet Take 1 Tab by mouth every 4 hours as needed for Pain. ??? docusate sodium (COLACE) 100 mg capsule Take 2 Caps by mouth 2 times daily. ??? PEG 3350-Electrolytes (MIRALAX) 17 gram packet Take 17 g by mouth 2 times daily. ??? FOSINOPRIL SODIUM (MONOPRIL ORAL) Take 20 [...] mcg capsule Take 24 mcg by mouth 2 times daily with meals. ??? zafirlukast (ACCOLATE) 20 mg tablet Take 20 mg by mouth 2 times daily. ??? trazodone (DESYREL) 50 mg tablet Take 1-2 Tabs by mouth at bedtime as needed for Sleep. ??? albuterol (PROVENTIL, VENTOLIN) 90 mcg/Actuation inhaler Inhale 2 Puffs as directed as needed for Wheezing. ??? CALCIUM CARBONATE/VITAMIN D3 (CALCIUM 600 WITH VITAMIN D3 ORAL) Take 600 mg by mouth 2 times daily. ??? MULTIVITAMINS (MULTIVITAMIN ORAL) Take 1 Tab by mouth daily. ??? duloxetine (CYMBALTA) 20 mg capsule Take 20 mg by mouth 3 times daily. ??? albuterol (ACCUNEB) 0.63 mg/3 mL nebulizer solution Take 0.63 mg by nebulization every 4 hours as needed for Wheezing. ??? albuterol-ipratropium (DUONEB) 0.5-2.5 mg/3 mL nebulizer solution Take 3 mL by nebulization every 4 hours as needed for Wheezing. Allergies Allergen Reactions ??? Penicillins Shortness Of Breath ??? Codeine Shortness Of Breath ??? Sulfa (Sulfonamide Antibiotics) Hives ??? Aspirin Shortness Of Breath ??? Egg/poultry Hives ??? Latex, Natural Rubber Hives ??? Chocolate Flavor Hives Anything with chocolate gives rash Review of Systems Constitutional: Positive for malaise/fatigue. Negative for fever, chills, weight loss and diaphoresis. HENT: Negative for hearing loss. Eyes: Negative. Respiratory: Positive for cough and wheezing. Asthma is more active Cardiovascular: Positive for palpitations (during anxiety, no panic attacks). Gastrointestinal: Negative. Genitourinary: Negative. Musculoskeletal: Positive for myalgias, back pain and joint pain (right knee). Negative for falls. Skin: Negative. Neurological: Positive for headaches. Negative for dizziness, tingling, focal weakness, seizures and weakness. Psychiatric/Behavioral: Positive for depression. Negative for suicidal ideas, hallucinations, memory loss and substance abuse. The patient is nervous/anxious and has insomnia. - See HPI Objective: BP 110/64 Pulse 72 Ht 1.524 m (5') Wt 97.977 kg (216 lb) LMP 03/09/2010 Physical Exam Nursing note and vitals reviewed. Constitutional: She is oriented to person, place, and time. She appears well- developed and well-nourished. No distress. HENT: Head: Normocephalic and atraumatic. Right Ear: External ear normal. Left Ear: External ear normal. Nose: Nose normal. Eyes: Conjunctivae are normal. Right eye exhibits no discharge. Left eye exhibits no discharge. Neck: Neck supple. Cardiovascular: Normal rate. Pulmonary/Chest: Effort normal. Abdominal: Soft. Musculoskeletal: Right knee is surgically replaced, warm with well healed scar. No assistive devices present. Tender over dips but no synovitis. Neurological: She is alert and oriented to person, place, and time. She has normal reflexes. No cranial nerve deficit. She exhibits normal muscle tone. Coordination normal. Skin: Skin is warm and dry. She is not diaphoretic. Psychiatric: She has a normal mood and affect. Judgment and thought content normal. Assessment: Patient has increased insomnia and stress and increased pain. Likely flare of fibromyalgia. Her right knee is recovering and she had an episode of decreased mood following knee replacement which is now resolving. Focus will be on controlling fibromyalgia by improving sleep. She asked about Remicade, however, this medication would not be appropriate given that most of her symptoms are from fibromyalgia. Plan: Cherelle was seen today for fibromyalgia and cyst. Diagnoses and associated orders for this visit: Myalgia and myositis - trazodone (DESYREL) 100 mg tablet; Take 1 Tab by mouth at bedtime. Arthropathy - trazodone (DESYREL) 100 mg tablet; Take 1 Tab by mouth at bedtime. return 5months Patient was advised to contact me if [...] Start Date End Da te trazodone (DESYREL) 50 mg tablet Take 1-2 Tabs by mouth at bedtime as needed for Sleep. 06/28/2010 documented as of this encounter Care Teams Metal Bonding Assembler Relationship Specialty Start Date End Date eRmedios Mehta MD [address] [place] [phone] PCP - General 02/19/09 01/04/15 documented as of this encounter
--- OUTSIDE RECORDS SUMMARY | 2024-06-24 02:24 | XMS_ITS | Encounter Summary ---
Author Organization [facility] Address [address] [place] [address] Care Team Providers Care Flower Cheniller Name Role Phone Remedios Mehta MD Primary Care Provider [phone] Reason for Visit * Reason Onset Date Comments Advice Only 06/21/2010 Encounter Details Date Type Department Care Team (Late st Contact Info) Description 06/21/[address] [phone] Cathryn Garza, PA [address] [place], [place] [phone] Advice Only Social History Tobacco Use Types [...] * Telephone Encounter - Tania Nguyen - 06/22/2010 1044 EDT PT DOES HAVE AN APPT WITH DR MA THIS WEEK. * Telephone Encounter - Nora Middleton - 06/21/2010 1506 EDT PT SAID HAD SEEN CATHRYN GARZA AND TALKED ABOUT WEIGHT LOSS .. SHE HAS HAD HER KNEE SURGERY AND NOW READY TO KNOW ABOUT WHAT SHE SHOULD DO ABOUT HER WEIGHT LOSS. documented in this encounter Plan of Treatment Not on file documented as of this encounter Visit Diagnoses Not on filedocumented in this encounter Care Teams Flower Cheniller Relationship Specialty Start Date End Date Remedios Mehta MD [address] [place] [address] [phone] PCP - General 02/19/09 01/04/15 documented as of this encounter
--- OUTSIDE RECORDS SUMMARY | 2024-06-24 02:24 | XMS_ITS | Encounter Summary ---
Author Organization [facility] Address [address] [place] [address] Care Team Providers Care Metal Or Wood Blocker Name Role Phone Remedios Mehta MD Primary Care Provider [phone] Reason for Visit * Reason Onset Date Comments Knee Pain 07/12/2010 Encounter Details Date Type Department Care Team (Late st Contact Info) Description 07/12/2010 Orders Only [facility] Total Joint Program - [address] [place], [place] [phone] Kim Holman LPN [address] [place] [address] Knee pain, right; Osteoarthritis, knee Social History Tobacco Use Types Packs/Day Years [...] as of this encounter Visit Diagnoses Diagnosis Knee pain, right Pain in joint, lower leg Osteoarthritis, knee Osteoarthrosis, unspecified whether generalized or localized, lower leg documented in this encounter Care Teams Metal Or Wood Blocker Relationship Specialty Start Date End Date Remedios Mehta MD [address] [place] [phone] PCP - General 02/19/09 01/04/15 documented as of this encounter
--- OUTSIDE RECORDS SUMMARY | 2024-06-24 02:24 | XMS_ITS | Encounter Summary ---
Author Organization [facility] Address [address] [place] [address] Care Team Providers Care Reporting Process Consultant Name Role Phone Remedios Mehta MD Primary Care Provider [phone] Reason for Visit * Reason Onset Date Comments Anticoagulation 07/30/2010 Encounter Details Date Type Department Care Team (Late st Contact Info) Description 07/30/[address] [address] Argelia Farias RN Anticoagulation Social History Tobacco Use Types Packs/Day Years [...] times daily. 14 Syringe 1 07/30/2010 08/16/2010 documented in this encounter Miscellaneous Notes * Telephone Encounter - Argelia Farias RN - 07/30/2010 1656 EDT Phone call to Cherelle, per Dr Ibarra's instructions at 1653 on Monday evening. No answer. I've left a detailed message regarding Hem/Onc's recommendation for initiation of Lovenox injections BID starting the evening of her knee manipulation under anesthesia. I've asked her to call me as soon as she gets my message and asked to be put thru on the inside line by the answering service. I will send an order for the required Lovenox to her pharmacy. I believe Cherelle has given herself injections in the past, but I would like to be assured that she feels comfortable doing this. Will await her call back. Argelia Fernandez RN * Telephone Encounter - Argelia Farias RN - 07/30/[address] Ibarra. She has spoken to Hem/Onc and they agree that Cherelle needs a Lovenox bridge after herup-coming knee manipulation under anesthesia, I believe next week. Hem/Onc feel that patient needs 30 mg Lovenox BID x [address] Ibarra states that she has had Dr Moreland paged this morning and is awaiting a call back from him. I have called Ortho and left a message for Conor, who is covering for Pastora. I've left the message for Conor to call me back. Argelia Farias RN Return call from Conor, who is covering Dr Moreland's nurse Pastora today. She asks that I forward the request directly to Pastora, who will be back in the office on Monday. All providers understand that there is no actual surgery but Cherelle's mobility will be compromised for at least 2 weeks. She will be using a CPM at . Because of Cherelle's history of DVT this decrease in mobility puts her at substantial risk of developing further DVT. Patient should have 2 wk therapy of Lovenox 30 mg BID. Argelia Farias RN documented in this encounter Plan of Treatment Not on file documented as of this encounter Visit Diagnoses Not on filedocumented in this encounter Care Teams Reporting Process Consultant Relationship Specialty Start Date End Date Remedios Mehta MD [address] [place] [phone] PCP - General 02/19/09 01/04/15 documented as of this encounter
--- OUTSIDE RECORDS SUMMARY | 2024-06-24 02:24 | XMS_ITS | Encounter Summary ---
Author Organization [facility] Address [address] [place] [address] Care Team Providers Care Flat Lock Machine Operator Name Role Phone Remedios Mehta MD Primary Care Provider [phone] Reason for Visit * Reason Onset Date Comments Medications Refill 07/28/2010 Encounter Details Date Type Department Care Team (Late st Contact Info) Description 07/28/2010 Refill [facility] Total Joint Program - [address] [place] [address] Kim Holman LPN [address] [place] [address] Medications Refill Social History Tobacco Use Types [...] on filedocumented in this encounter Care Teams Flat Lock Machine Operator Relationship Specialty Start Date End Date Remedios Mehta MD [address] [place] [phone] PCP - General 02/19/09 01/04/15 documented as of this encounter
--- OUTSIDE RECORDS SUMMARY | 2024-06-24 02:24 | XMS_ITS | Encounter Summary ---
Author Organization [facility] Address [address] [place] [address] Care Team Providers Care Shot Man Name Role Phone Remedios Mehta MD Primary Care Provider Reason for Visit * Reason Comments Cyst pre op on cyst back of knee right leg Encounter Details Date Type Department Care Team (Late st Contact Info) Description 07/30/2010 9:15 EDT Office Visit [facility] [address] [id number] Yvonne Ibarra MD [address] [place], [place] [phone] Stiffness of knee joint; Knee joint replacement by other means Social [...] Reading Time Taken Comments Blood Pressure 100/60 07/30/2010 0931 EDT Pulse 72 07/30/2010 0931 EDT Temperature 36.7 ??C (98 ??F) 07/30/2010 0931 EDT Respiratory Rate - - Oxygen Saturation - - Inhaled Oxygen Concentration - - Weight 96.5 kg (212 lb 12.8 oz) 07/30/2010 0931 EDT Height - - Body Mass Index 41.56 06/28/2010 1551 EDT documented in this encounter Functional Status Cognitive Status Response Date of Assessm ent Because of a physical, menta l, or emotional condition, do you have serious difficulty concentrating, remembering, or making decisions? (5 years old or older) Yes 04/15/2010 documented as of this encounter Progress Notes * MackinawYvonne farris - 07/30/2010 0951 EDT Subjective: Patient ID: Cherelle Husain is an 50 y.o. female. Chief Complaint Patient presents with ??? Cyst pre op on cyst back of knee right leg HPI Here for pre-op Having anesthesia tomorrow for right knee manipulation Was told by an [facility] anesthesiologist in the past AFTER anesthesia that she should avoid anesthesiain the future if possilbe because of her asthma. (Look in records) Since then, she had [...] having anesthesia this week See ROS below Patient Active Problem List Diagnoses Code ??? [...] occasional Review of Systems Constitutional: Positive for chills. Negative for fever and malaise/fatigue. I've had chills that I attribute to feeling overtired and pain Doesn't feel flu-like HENT: Positive for neck pain. Negative for sore throat. Baseline is frequent headaches, no recent changes in pattern Eyes: Negative for blurred vision. Respiratory: Negative for cough. Cardiovascular: Positive for chest pain. Negative for leg swelling. Chest discomfort when she has asthma sx Gastrointestinal: Positive for constipation. Negative for nausea, vomiting and diarrhea. Chronic constipation Genitourinary: Negative for dysuria. Musculoskeletal: Positive for myalgias and back pain. Negative for falls. Fibromyalgia Skin: Negative for rash. Neurological: Positive for headaches. Negative for dizziness. Endo/Heme/Allergies: Does not bruise/bleed easily. Psychiatric/Behavioral: Positive for depression. Negative for suicidal ideas. The patient is nervous/anxious. - See HPI Objective: BP 100/60 Pulse 72 Temp(Src) 36.7 ??C (98 ??F) (Tympanic) Wt 96.525 kg (212 lb 12.8 oz) [facility]03[facility]09[facility]2010 Physical Exam Constitutional: She is oriented to person, place, and time. She appears well- developed and well-nourished. No distress. HENT: Head: Normocephalic and atraumatic. Mouth/Throat: No oropharyngeal exudate. Eyes: Conjunctivae and extraocular motions are normal. Pupils are equal, round, and reactive to light. Left eye exhibits no discharge. Neck: Neck supple. No JVD present. No thyromegaly present. Cardiovascular: Normal rate, regular rhythm and normal heart sounds. Exam reveals no gallop and no friction rub. No murmur heard. Pulmonary/Chest: Effort normal and breath sounds normal. No respiratory distress. She has no wheezes. She has no rales. Abdominal: Soft. Bowel sounds are normal. She exhibits no distension. No tenderness. Musculoskeletal: She exhibits no edema. TRACE edema around ankle, right. Only notable at sock line Lymphadenopathy: She has no cervical adenopathy. Neurological: She is alert and oriented to person, place, and time. Assessment: Cherelle was seen at [facility] today for a pre-op CPE My only concern re: anesthesia was her h/o DVT. (See plan) Plan: H/o DVT Spoke to Dr. Preciado. Patient is at moderate risk for DVT with general anesthesia. He recommends patient have Lovenox 30 mg bid for two weeks post- general anesthesia. First dose should be 6-8 hours [...] out some disability paperwork for the patient today. We'll fax this withher notes and imaging back through March of 2010. Patient asked for a copy of all these documents alex sent to her home. I will speak to Dr. Moreland about this today. Either our office or his office will prescribe the Lovenox. We will call Cherelle about this after I speak to Dr. Moreland. documented in this encounter Plan of Treatment Not on file documented as of this encounter Procedures Procedure Name Priority Date/Time Associated Diagnosis Comments SED RATE Routine 07/30/2010 10:06 EDT Knee joint replacement by other means Stiffness of knee joint COMPLETE BLOOD COUNT Routine 07/30/2010 10:06 EDT Stiffness of knee joint Knee joint replacement by other means C REACTIVE PROTEIN Routine 07/30/2010 10 :06 EDT Stiffness of knee joint Knee joint replacement by other means documented in this encounter Results * (ABNORMAL) C-REACTIVE PROTEIN (07/30/2010 10:06 EDT) C-Reactive Protein 1.1(H) <1.0 mg/dl [facility] Blood specimen (specimen) 07/30/2010 10:06 EDT 07/30/2010 18:09 EDT Yonathan Moreland MD CHEMISTRY & BL OOD GAS ORDERABLES [facility] [address] [place] [address] * SED. RATE:ALYSSAERGREN (07/30/2010 10:06 EDT) Sed. Rate Westergren 14 0 - 20 mm/hr [facility] Comment: Note: Sample greater than 4 hrs old (but less than 12 hrs) when tested. If refrigerated, sample is stable when tested within 12 hours of collection. Blood specimen (specimen) 07/30/2010 10:06 EDT 07/30/2010 18:09 EDT Yonathan Moreland MD HEMATOLOGY & P F4 ORDERABLES Performing Organization Address City/[facility] Co de Phone Number [facility] [address] [place] [address] * (ABNORMAL) HEMAGRAM (07/30/2010 10:06 EDT) WBC 6.13 4.0 - 12.4 K/cmm [facility] RBC 4.29 3.86 - 5.04 M/cmm [facility] Hemoglobin 13.0 11.6 - 15.2 gm/dl [facility] HCT 38.6 34.9 - 44.4 % [facility] MCV 90 81 - 98 fl [facility] MCH 30.4 26.7 - 33.3 pg [facility] MCHC 33.8 32.1 - 35.9 gm/dl [facility] PLT 335(H) 141 - 320 K/cmm [facility] RDW-CV 13.1 11.7 - 14.6 % [facility] Blood specimen (specimen) 07/30/2010 10:06 EDT 07/30/2010 18:09 EDT Yonathan Moreland MD HEMATOLOGY & P F4 ORDERABLES Performing Organization Address City/[facility] Co de Phone Number [facility] [address] [place] [address] documented in this encounter Visit Diagnoses Diagnosis Stiffness of knee joint Stiffness of joint, not elsewhere classified, lower leg Knee joint replacement by other means documented in this encounter Care Teams Shot Man Relationship Specialty Start Date End Date Remedios Mehta MD [address] [place] [phone] PCP - General 02/19/09 01/04/15 documented as of this encounter
--- OUTSIDE RECORDS SUMMARY | 2024-06-24 02:24 | XMS_ITS | Encounter Summary ---
Author Organization [facility] Address [address] [place] [address] Care Team Providers Care Criminal Justice Social Worker Name Role Phone Remedios Mehta MD Primary Care Provider [phone] Encounter Details Date Type Department Care Team (Late st Contact Info) Description 06/14/2010 Orders Only [facility] - [address] [place] [address] Conchita Garza NP [address] [place], [place] [phone] Total knee replacement status; Knee pain Social [...] documented as of this encounter Results * (ABNORMAL) HEMAGRAM AND DIFFERENTIAL (06/14/2010 10:57 EDT) WBC 6.07 4.0 - 12.4 K/cmm [facility] RBC 4.29 3.86 - 5.04 M/cmm [facility] Hemoglobin 12.6 11.6 - 15.2 gm/dl [facility] HCT 37.4 34.9 - 44.4 % [facility] MCV 87 81 - 98 fl [facility] MCH 29.3 26.7 - 33.3 pg [facility] MCHC 33.6 32.1 - 35.9 gm/dl [facility] PLT 315 141 - 320 K/cmm [facility] RDW-CV 12.0 11.7 - 14.6 % [facility] Comment:Performed at [facility], [place], [place] % Neutrophils 49.3 45.5 - 79.7 % [facility] % Lymphocytes 35.5 15.0 - 46.8 % [facility] % Monocytes 8.7 1.8 - 12.0 % [facility] % Eosinophils 5.0 0.6 - 6.9 % [facility] % Basophils 1.5(H) 0.2 - 1.4 % [facility] ABS Neutrophils 3.00 2.20 - 8.85 K/cmm [facility] ABS Lymphs 2.16 1.09 - 3.30 K/cmm [facility] ABS Monocytes 0.53 0.1 - 0.8 K/cmm [facility] ABS Eosinophils 0.30 0.03 - 0.61 K/cmm [facility] ABS Basophils 0.09 0.01 - 0.11 K/cmm [facility] Type of Diff: Automated [facility] Blood specimen (specimen) 06/14/2010 10:57 EDT 06/14/2010 10:59 EDT Conchita Garza NP PACKAGES & DNA PROBE ORDERABLES [facility] [address] [place] [address] * (ABNORMAL) C-REACTIVE PROTEIN (06/14/2010 10:57 EDT) C-Reactive Protein 1.6(H) <1.0 mg/dl [facility] Blood specimen (specimen) 06/14/2010 10:57 EDT 06/14/2010 10:59 EDT Conchita Garza NP CHEMISTRY & BLOOD GA S ORDERABLES Performing Organization Address City/State/[facility] Co de Phone Number [facility] [address] [place] [address] documented in this encounter Visit Diagnoses Diagnosis Total knee replacement status Knee joint replacement by other means Knee pain Pain in joint, lower leg documented in this encounter Orders Lab Orders Without Results Count Last Ordered D ate First Ordered Date SED. RATE:WESTERGREN 1 06/14/2010 documented in this encounter Care Teams Criminal Justice Social Worker Relationship Specialty Start Date End Date Remedios Mehta MD [address] [place] [phone] PCP - General 02/19/09 01/04/15 documented as of this encounter
--- OUTSIDE RECORDS SUMMARY | 2024-06-24 02:24 | XMS_ITS | Encounter Summary ---
Author Organization [facility] Address [address] [place] [address] Care Team Providers Care Sr. Social Media & Mobile Manager Name Role Phone Remedios Mehta MD Primary Care Provider [phone] Reason for Visit * Reason Onset Date Comments Medications Refill 05/10/2010 Encounter Details Date Type Department Care Team (Late st Contact Info) Description 05/10/2010 Refill [facility] Total Joint Program - [address] [place], [place] [phone] Kim Holman LPN [address] [place] [address] Medications Refill Social History Tobacco Use Types [...] PRN PAIN 40 Tab 0 05/10/2010 05/17/2010 documented in this encounter Plan of Treatment Not on file documented as of this encounter Visit Diagnoses Not on filedocumented in this encounter Discontinued Medications Medication Sig Discontinue Reason Start Date End Da te hydrocodone-acetaminophen (LORTAB;VICODIN) 5-500 mg per tablet Take 1-2 Tabs by mouth. TAKE 1-2 TABS PO EVERY 4-6 HOURS PRN PAIN Reorder 04/27/2010 05/10/2010 documented as of this encounter Care Teams Sr. Social Media & Mobile Manager Relationship Specialty Start Date End Date Remedios Mehta MD [address] [place] [phone] PCP - General 02/19/09 01/04/15 documented as of this encounter
--- OUTSIDE RECORDS SUMMARY | 2024-06-24 02:24 | XMS_ITS | Encounter Summary ---
Author Organization [facility] Address [address] [place] [address] Care Team Providers Care Piano Instructor Name Role Phone Remedios Mehta MD Primary Care Provider [phone] Reason for Visit * Reason Comments Knee Pain right tka Encounter Details Date Type Department Care Team (Latest Contact Info) Description 04/29/2010 15:00 EDT Office Visit [facility] Total Joint Program - [address] [place] [address] Conchita Garza NP [address] [place], [place] [address] Osteoarthritis (Primary Dx) Social History Tobacco Use [...] - Inhaled Oxygen Concentration - - Weight 86.2 kg (190 lb) 04/29/2010 1445 EDT Height 152.4 cm (5') 04/29/2010 1445 EDT Body Mass Index 37.11 04/29/2010 1445 EDT documented in this encounter Functional Status Cognitive Status Response Date of Assessm ent Because of a physical, menta l, or emotional condition, do you have serious difficulty concentrating, remembering, or making decisions? (5 years old or older) Yes 04/15/2010 documented as of this encounter Progress Notes * Conchita Duenas NP - 05/04/2010 1003 EDT PROBLEM: S/P right TKA done 04/15/10; increased pain; increased redness of knee SUBJECTIVE: Cherelle returns to the office today because of concerns of the home health agency in regards to increasing knee redness and pain. States that she has been continuing to do physical therapy. Recently switched from oxycodone to vicodin for pain management and is continuing to have pain. She denies any nausea, vomiting, fever or chills. Had noted some increasing redness in the past few daysand felt the area was increasing in size. She denies any issues with discharge from the wound. No recent changes with knee ROM. OBJECTIVE: This is a healthy appearing woman, awake, alert and oriented times 3 in NAD. She's a good historian. Her right knee today shows well healing incision with slight swelling of the extremity.No tenderness to palpation of the incision. No drainage with palpation of the incision. No redness or warmth noted with the incision and knee. ROM is 10 - 90. Negative Canelo's sign. X-rays from time of surgery are reviewed. ASSESSMENT AND MEDICAL DECISION MAKING: S/P right TKA; at this time I do not feel that there is anyissue with infection with this knee. Do question whether there has been some over use. Have discussed this with the patient. As well today have given her a prescription for oxycodone. Have discussed with her the signs and symptoms of infection and the actions to take should these occur. She does have a routine follow up appointment scheduled already. She will keep this appointment. All questions that she had today were answered. She was happy with the above plan of care. documented in this encounter Plan of Treatment Not on file documented as of this encounter Visit Diagnoses Diagnosis Osteoarthritis- Primary Osteoarthrosis, unspecified whether generalized or localized, unspecified site documented in this encounter Discontinued Medications Medication Sig Discontinue Reason Start Date End Da te oxycodone (ROXICODONE) 5 mg immediate release tablet Take 1-2 Tabs by mouth. Take 1-2 tabs po every 4-6 hours prn pain Error 04/29/2010 04/29/2010 enoxaparin (LOVENOX) 30 mg/0.3 mL injection Inject 0.3 mL into the skin every 12 hours. Error 04/20/2010 04/29/2010 documented as of this encounter Care Teams Piano Instructor Relationship Specialty Start Date End Date Remedios Mehta MD [address] [place] [phone] PCP - General 02/19/09 01/04/15 documented as of this encounter
--- OUTSIDE RECORDS SUMMARY | 2024-06-24 02:24 | XMS_ITS | Encounter Summary ---
Author Organization [facility] Address [address] [place] [address] Care Team Providers Care Manager Latin Name Role Phone Remedios Mehta MD Primary Care Provider [phone] Reason for Visit * Reason Onset Date Comments Medications Refill 05/07/2010 Encounter Details Date Type Department Care Team (Late st Contact Info) Description 05/07/2010 Refill [facility] Program - [address] [place], [place] [phone] Kim Holman LPN [address] [place] [address] Medications Refill Social History Tobacco Use Types [...] muscle spasms 60 Tab 0 05/07/2010 05/18/2010 documented in this encounter Plan of Treatment Not on file documented as of this encounter Visit Diagnoses Not on filedocumented in this encounter Discontinued Medications Medication Sig Discontinue Reason Start Date End Da te methocarbamol (ROBAXIN) 500 mg tablet Take 1 Tab by mouth every 6 hours as needed. muscle spasms Reorder 04/20/2010 05/07/2010 documented as of this encounter Care Teams Manager Latin Relationship Specialty Start Date End Date Remedios Mehta MD [address] [place] [phone] PCP - General 02/19/09 01/04/15 documented as of this encounter
--- OUTSIDE RECORDS SUMMARY | 2024-06-24 02:24 | XMS_ITS | Encounter Summary ---
Author Organization [facility] Address [address] [place] [address] Care Team Providers Care Cyanide Pot Hardener Name Role Phone Remedios Mehta MD Primary Care Provider [phone] Reason for Visit * Reason Onset Date Comments Medications Refill 05/18/2010 Encounter Details Date Type Department Care Team (Late st Contact Info) Description 05/18/2010 Refill [facility] Total Joint Program - [address] [place], [place] [phone] Kim Holman LPN [address] [place] [address] Medications Refill Social History Tobacco Use Types [...] muscle spasms 60 Tab 0 05/18/2010 06/07/2010 documented in this encounter Plan of Treatment Not on file documented as of this encounter Visit Diagnoses Not on filedocumented in this encounter Discontinued Medications Medication Sig Discontinue Reason Start Date End Da te methocarbamol (ROBAXIN) 500 mg tablet Take 1-2 Tabs by mouth every 6 hours as needed. muscle spasms Reorder 05/07/2010 05/18/2010 documented as of this encounter Care Teams Cyanide Pot Hardener Relationship Specialty Start Date End Date Remedios Metha MD [address] [place] [phone] PCP - General 02/19/09 01/04/15 documented as of this encounter
--- OUTSIDE RECORDS SUMMARY | 2024-06-24 02:24 | XMS_ITS | Encounter Summary ---
Author Organization [facility] Address [address] [place] [address] Care Team Providers Care Refrigeration Mechanic Helper Name Role Phone Remedios Mehta MD Primary Care Provider [phone] Encounter Details Date Type Department Care Team (Late st Contact Info) Description 06/21/2010 Abstract Used for ABSTRACTING Data [phone] Remedios Mehta MD [address] [place] [phone] Social History Tobacco Use Types Packs/Day [...] filedocumented in this encounter Care Teams Refrigeration Mechanic Helper Relationship Specialty Start Date End Date Remedios Mehta MD [address] [place] [phone] PCP - General 02/19/09 01/04/15 documented as of this encounter
--- OUTSIDE RECORDS SUMMARY | 2024-06-24 02:24 | XMS_ITS | Encounter Summary ---
Author Organization [facility] Address [address] [place] [address] Care Team Providers Care Textile Screen Maker Name Role Phone Remedios Mehta MD Primary Care Provider [phone] Encounter Details Date Type Department Care Team (Latest Contact Info) Description 06/14/2010 10:24 EDT - 06/14/2010 23:59 EDT Hospital Encounter [facility] [place] [address] [place] [address] Conchita Garza, HEIDE [address] [facility] [address] [place], [place] [address] Total knee replacement status Discharge Disposition: Auto Discharge Social History Tobacco [...] as needed (muscle spasms). 60 Tab 0 06/07/2010 07/13/2010 metoprolol (LOPRESSOR) 25 mg tabletIndications:Hype rtension Take 1 Tab by mouth 2 times daily. 180 Tab 4 03/10/2010 03/30/2011 omeprazole (PRILOSEC) 20 mg capsule Take 1 Cap by mouth 2 times daily. dose increase 60 Cap 3 02/03/2010 07/12/2011 PEG 3350-Electrolytes (MIRALAX) 17 gram packet Take 17 g by mouth as needed. 09/27/2010 10/14/2010 trazodone (DESYREL) 50 mg tablet Take 1-2 [...] Date/Time Associated Diagnosis Comments SED RATE Routine 06/14/2010 10:57 EDT COMPLETE BLOOD COUNT AND DIFFERENTIAL Routine 06/14/2010 10:57 EDT Total knee replacement status C REACTIVE PROTEIN Routine 06/14/2010 10 :57 EDT Total knee replacement status documented in this encounter Results * SED. RATE:MISA (06/14/2010 10:57 EDT) Sed. Rate Misa 9 0 - 20 mm/hr [facility] Comment:Performed at [facility], [place], [place] 06/14/2010 10:5 7 EDT 06/14/2010 10:59 EDT Conchita Garza MILL STENCILER HEMATOLOGY & PF4 ORD ERABLES [facility] [address] [place] [address] * (ABNORMAL) HEMAGRAM AND DIFFERENTIAL (06/14/2010 10:57 EDT) WBC 6.07 4.0 - 12.4 K/cmm [facility] RBC 4.29 3.86 - 5.04 M/cmm [facility] Hemoglobin 12.6 11.6 - 15.2 gm/dl [facility] HCT 37.4 34.9 - 44.4 % [facility] MCV 87 81 - 98 fl [facility] MCH 29.3 26.7 - 33.3 pg [facility] MCHC 33.6 32.1 - 35.9 gm/dl [facility] PLT 315 141 - 320 K/cmm [facility] RDW-CV 12.0 11.7 - 14.6 % [facility] Comment:[facility] [place], [place] % Neutrophils 49.3 45.5 - 79.7 % [facility] % Lymphocytes 35.5 15.0 - 46.8 [...] ABS Basophils 0.09 0.01 - 0.11 K/cmm [facility] Type of Diff: Automated [facility] Blood specimen (specimen) 06/14/2010 10:57 EDT 06/14/2010 10:59 EDT Conchita Garza MILL STENCILER PACKAGES & DNA PROBE ORDERABLES Performing Organization Address City/[facility]/ZIP Co de Phone Number [facility] [address] [place] [address] * (ABNORMAL) C-REACTIVE PROTEIN (06/14/2010 10:57 EDT) C-Reactive Protein 1.6(H) <1.0 mg/dl [facility] Blood specimen (specimen) 06/14/2010 10:57 EDT 06/14/2010 10:59 EDT Conchita Garza MILL STENCILER CHEMISTRY & BLOOD GA S ORDERABLES Performing Organization Address [facility] Co de Phone Number [facility] [address] [place] [address] documented in this encounter Visit Diagnoses Diagnosis Total knee replacement status Knee joint replacement by other means documented in this encounter Care Teams Textile Screen Maker Relationship Specialty Start Date End Date Remedios Mehta MD [address] [place] [phone] PCP - General 02/19/09 01/04/15 documented as of this encounter
--- OUTSIDE RECORDS SUMMARY | 2024-06-24 02:24 | XMS_ITS | Encounter Summary ---
Author Organization [facility] Address [address] [place] [address] Care Team Providers Care Audiologist Name Role Phone Remedios Mehta MD Primary Care Provider [phone] Encounter Details Date Type Department Care Team (Latest Contact Info) Description 06/22/2010 9:02 EDT - 06/22/2010 23:59 EDT Hospital Encounter [facility] [address] [place] [address] Yonathan Moreland MD Discharge Disposition: Auto Discharge Social History Tobacco [...] on filedocumented in this encounter Care Teams Audiologist Relationship Specialty Start Date End Date Remedios Mehta MD [address] [place] [phone] PCP - General 02/19/09 01/04/15 documented as of this encounter
--- OUTSIDE RECORDS SUMMARY | 2024-06-24 02:24 | XMS_ITS | Encounter Summary ---
Author Organization [facility] Address [address] [place] [address] Care Team Providers Care Carton Forming Machine Tender Name Role Phone Remedios Mehta MD Primary Care Provider [phone] Encounter Details Date Type Department Care Team (Late st Contact Info) Description 06/25/2010 Results Only [facility] [address] [address] Remedios Mehta MD [address] [place] [phone] Social History Tobacco Use Types Packs/Day [...] on filedocumented in this encounter Care Teams Carton Forming Machine Tender Relationship Specialty Start Date End Date Remedios Mehta MD [address] [place] [phone] PCP - General 02/19/09 01/04/15 documented as of this encounter
--- OUTSIDE RECORDS SUMMARY | 2024-06-24 02:24 | XMS_ITS | Encounter Summary ---
Author Organization [facility] Address [address] [place] [address] Care Team Providers Care Whittling Room Operator Name Role Phone Remedios Mehta MD Primary Care Provider Reason for Visit * Reason Onset Date Comments Medications Refill 07/09/2010 Encounter Details Date Type Department Care Team (Late st Contact Info) Description 07/09/2010 Refill [facility] [address] [place] [address] Shanna Gustafson RN Medications Refill Social History Tobacco Use [...] on filedocumented in this encounter Care Teams Whittling Room Operator Relationship Specialty Start Date End Date Remedios Mehta MD [address] [place] [phone] PCP - General 02/19/09 01/04/15 documented as of this encounter
--- OUTSIDE RECORDS SUMMARY | 2024-06-24 02:24 | XMS_ITS | Encounter Summary ---
Author Organization [facility] Address [address] [place] [address] Care Team Providers Care Biometrics Instructor Name Role Phone Remedios Mehta MD Primary Care Provider [phone] Encounter Details Date Type Department Care Team (Late st Contact Info) Description 07/22/2010 Abstract Used for ABSTRACTING Data [phone] Remedios Mehta MD [address] [place] [phone] Social History Tobacco Use Types Packs/Day [...] on filedocumented in this encounter Care Teams Biometrics Instructor Relationship Specialty Start Date End Date Remedios Mehta MD [address] [place] [phone] PCP - General 02/19/09 01/04/15 documented as of this encounter
--- OUTSIDE RECORDS SUMMARY | 2024-06-24 02:24 | XMS_ITS | Encounter Summary ---
Author Organization [facility] Address [address] [place] [address] Care Team Providers Care Bank President Name Role Phone Remedios Mehta MD Primary Care Provider [phone] Encounter Details Date Type Department Care Team (Late st Contact Info) Description 06/14/[address] [facility] Total Joint Program - [address] [place] [address] Conchita Garza NP [address] [place], [place] [phone] OA (osteoarthritis) of knee (Primary Dx) Social [...] leg documented in this encounter Care Teams Bank President Relationship Specialty Start Date End Date Janine, Remedios Brook, MD [address] [place] [phone] PCP - General 02/19/09 3 documented as of this encounter
--- OUTSIDE RECORDS SUMMARY | 2024-06-24 02:24 | XMS_ITS | Encounter Summary ---
Author Organization [facility] Address [address] [place] [address] Care Team Providers Care Digital Media Intern Name Role Phone Remedios Mehta MD Primary Care Provider + [phone] Encounter Details Date Type Department Care Team (Late st Contact Info) Description 07/27/2010 Orders Only [facility] Total Joint Program - [address] [place], [place] [phone] Yonathan Moreland MD S/P TKR (total knee replacement) (Primary Dx) Social History Tobacco Use Types [...] Comments KNEE 1 OR 2 VIEWS Routine 07/28/2010 15: 35 EDT S/P TKR (total knee replacement) KNEE 1 OR 2 VIEWS Routine 07/28/2010 15: 34 EDT S/P TKR (total knee replacement) documented in this encounter Results * KNEE 1 OR 2 VIEWS (07/28/2010 15:35 EDT) Anatomical Region Laterality Modality Other 07/28/2010 15:3 5 EDT 07/28/2010 15:51 EDT Narrative 07/28/2010 15:51 EDT KNEE 1 OR 2 VIEWS ??Jul 28, 2010 03:34:00 PM Clinical History/Comments: V43.65-S/P TKR (TOTAL KNEE REPLACEMENT)-I9 right total knee replacement due to osteoarthritis Comparison: June 14, 2010. Findings: Right knee AP and lateral views are obtained and compared with the prior study. Previously described three-part right total knee arthroplasty. No radiographic evidence for hardware loosening or failure is visualized. Small suprapatellar joint effusion is again noted. Left knee single AP view obtained and compared with the prior study. Evaluation is incomplete without the benefit of an orthogonal lateral view. The obtained weight-bearing AP view again shows mild medial femorotibial compartment joint space narrowing Procedure Note 07/28/2010 KNEE 1 OR 2 VIEWS Jul 28, 2010 03:34:00 PM Clinical History/Comments: V43.65-S/P TKR (TOTAL KNEE REPLACEMENT)-I9 right total knee replacement due to osteoarthritis Comparison: June 14, 2010. Findings: Right knee AP and lateral views are obtained and compared with the prior study. Previously described three-part right total knee arthroplasty. No radiographic evidence for hardware loosening or failure is visualized. Small suprapatellar joint effusion is again noted. Left knee single AP view obtained and compared with the prior study. Evaluation is incomplete without the benefit of an orthogonal lateral view. The obtained weight-bearing AP view again shows mild medial femorotibial compartment joint space narrowing Yonathan Moreland MD [facility] ORDERABLES * KNEE 1 OR 2 VIEWS (07/28/2010 15:34 EDT) Anatomical Region Laterality Modality Other 07/28/2010 15:3 4 EDT 07/28/2010 15:51 EDT Narrative 07/28/2010 15:51 EDT KNEE 1 OR 2 VIEWS ??Jul 28, 2010 03:34:00 PM Clinical History/Comments: V43.65-S/P TKR (TOTAL KNEE REPLACEMENT)-I9 right total knee replacement due to osteoarthritis Comparison: June 14, 2010. Findings: Right knee AP and lateral views are obtained and compared with the prior study. Previously described three-part right total knee arthroplasty. No radiographic evidence for hardware loosening or failure is visualized. Small suprapatellar joint effusion is again noted. Left knee single AP view obtained and compared with the prior study. Evaluation is incomplete without the benefit of an orthogonal lateral view. The obtained weight-bearing AP view again shows mild medial femorotibial compartment joint space narrowing Procedure Note 07/28/2010 KNEE 1 OR 2 VIEWS Jul 28, 2010 03:34:00 PM Clinical History/Comments: V43.65-S/P TKR (TOTAL KNEE REPLACEMENT)-I9 right total knee replacement due to osteoarthritis Comparison: June 14, 2010. Findings: Right knee AP and lateral views are obtained and compared with the prior study. Previously described three-part right total knee arthroplasty. No radiographic evidence for hardware loosening or failure is visualized. Small suprapatellar joint effusion is again noted. Left knee single AP view obtained and compared with the prior study. Evaluation is incomplete without the benefit of an orthogonal lateral view. The obtained weight-bearing AP view again shows mild medial femorotibial compartment joint space narrowing Yonathan Moreland MD [facility] ORDERABLES documented in this encounter Visit Diagnoses Diagnosis S/P TKR (total knee replacement)- Primary Knee joint replacement by other means documented in this encounter Care Teams Digital Media Intern Relationship Specialty Start Date End Date Remedios Mehta MD [address] [place] [phone] PCP - General 02/19/09 01/04/15 documented as of this encounter
--- OUTSIDE RECORDS SUMMARY | 2024-06-24 02:24 | XMS_ITS | Encounter Summary ---
Author Organization [facility] Address [address] [place] [address] Care Team Providers Care House Registry Rn Name Role Phone Remedios Mehta MD Primary Care Provider + [phone] Encounter Details Date Type Department Care Team (Latest Contact Info) Description 06/28/2010 13:03 EDT - 06/28/2010 23:59 EDT Hospital Encounter [facility] [address] [place] [address] Conchita Garza NP [address] [place] [address] Discharge Disposition: Home or Self Care Social [...] Code Departure Means Destination Home or Self Detention documented in this encounter Procedure Notes * Geoffrey Fregoso MD - 06/28/2010 1517 EDT IR Procedure Note Procedure: US guided popliteal cyst aspiration Date Performed: 06/28/2010 Radiologist/Wood Polisher(s): Louis/Ildefonso Sedation/Anesthesia: Local Estimated Blood Loss: none Specimens: minimal aspirate sent for anaerobic culture per request from Conchita Hutchison NP Fluoroscopy Time: None Contrast Volume: none Complications: No immediate complications Condition: good Post Procedure Diagnosis: Popliteal cyst Findings: A small popliteal cyst was identified under ultrasound. A 22 gauge spinal needle was inserted into the cyst which was very tenacious. No fluid was able to be aspirated. A small amount of blood in the needle was sent for culture. Recommendations: Follow up with Conchita FREGOSO MD 06/28/2010 15:17 documented in this encounter Miscellaneous Notes * Scanned Note-Null - Inpatient, Physician - 06/28/2010 0000 EDT documented in this encounter Plan of Treatment Not on file documented as of this encounter Procedures Procedure Name Priority Date/Time Associated Diagnosis Comments ANAEROBE CULTURE/SMEAR(INC. AEROBES), FLUID Routine 06/28/2010 15:15 EDT documented in this encounter Results * ANAEROBE CULTURE/SMEAR(INC. AEROBES), FLUID (06/28/2010 15:15 EDT) Specimen Description Synovial Fluid [facility] Gram Smear Result Rare Polys No mononuclear cells seen. No bacteria seen [facility] Result No growth [facility] Report Status Final 07/03/2010 [facility] Specimen of unknown material (specimen) 06/28/2010 15:15 EDT 06/28/2010 16:12 EDT Geoffrey Fregoso MD MICROBIOLOGY - [facility] ORDERABLES [facility] [address] [place] [address] documented in this encounter Visit Diagnoses Not on filedocumented in this encounter Care Teams House Registry Rn Relationship Specialty Start Date End Date Remedios Mehta MD [address] [place] [phone] PCP - General 02/19/09 01/04/15 documented as of this encounter
--- OUTSIDE RECORDS SUMMARY | 2024-06-24 02:24 | XMS_ITS | Encounter Summary ---
Author Organization [facility] Address [address] [place] [address] Care Team Providers Care Mill Turner Name Role Phone Remedios Mehta MD Primary Care Provider + [phone] Encounter Details Date Type Department Care Team (Late st Contact Info) Description 07/29/2010 Orders Only [facility] Total Joint Program - [address] [place] [address] Kim Holman LPN [address] [place] [address] Stiffness of knee joint; Osteoarthritis of right knee Social History Tobacco Use Types Packs/Day [...] as of this encounter Visit Diagnoses Diagnosis Stiffness of knee joint Stiffness of joint, not elsewhere classified, lower leg Osteoarthritis of right knee Osteoarthrosis, unspecified whether generalized or localized, lower leg documented in this encounter Orders Equipment Count Last Ordered Date First Orde red Date CPM MACHINE(RENTAL) 1 07/29/2010 documented in this encounter Care Teams Mill Turner Relationship Specialty Start Date End Date Remedios Mehta MD [address] [place] [phone] PCP - General 02/19/09 01/04/15 documented as of this encounter
--- OUTSIDE RECORDS SUMMARY | 2024-06-24 02:24 | XMS_ITS | Encounter Summary ---
Author Organization [facility] Address [address] [place] [address] Care Team Providers Care Fuel Oil Clerk Name Role Phone Remedios Mehta MD Primary Care Provider [phone] Reason for Referral * Consult, Test and Treat (Routine) - Closed Specialty Diagnoses / Procedures Referred By Joao proctor Referred To Contact Rehab Therapies Diagnoses Osteoarthritis of right knee Stiffness of knee joint Kim Holman LPN [address] [place] [address] [facility] [address] [place] [address] Referral ID Status Reason Start Date Expiration Date V isits Requested Visits Authorized [id number] Closed Specialty Services Required 07/29/2010 1 1 Question Answer Reason for Request: right knee stiffness Encounter Details Date Type Department Care Team (Late st Contact Info) Description 07/29/2010 Orders Only [facility] Total Joint Program - [address] [address] Kim Holman LPN [address] [place] [address] Osteoarthritis of right knee; Stiffness of knee joint Social History Tobacco Use Types Packs/Day Years [...] PHYSICAL THERAPY Outpatient Referral Routine Osteoarthritis of right knee Stiffness of knee joint Ordered: 07/29/2010 documented as of this encounter Visit Diagnoses Diagnosis Osteoarthritis of right knee Osteoarthrosis, unspecified whether generalized or localized, lower leg Stiffness of knee joint Stiffness of joint, not elsewhere classified, lower leg documented in this encounter Care Teams Fuel Oil Clerk Relationship Specialty Start Date End Date Remedios Mehta MD [address] [place] [phone] PCP - General 02/19/09 01/04/15 documented as of this encounter
--- OUTSIDE RECORDS SUMMARY | 2024-06-24 02:24 | XMS_ITS | Encounter Summary ---
Author Organization [facility] Address [address] [place] [address] Care Team Providers Care Client Retention Specialist Name Role Phone Remedios Mehta MD Primary Care Provider [phone] Reason for Visit * Reason Onset Date Comments Medications Refill 06/07/2010 Encounter Details Date Type Department Care Team (Late st Contact Info) Description 06/07/2010 Refill [facility] Total Joint Program - [address] [place], [place] [phone] Kim Holman LPN [address] [place] [address] Medications Refill Social History Tobacco Use Types [...] (muscle spasms). 60 Tab 0 06/07/2010 07/13/2010 documented in this encounter Plan of Treatment Not on file documented as of this encounter Visit Diagnoses Not on filedocumented in this encounter Discontinued Medications Medication Sig Discontinue Reason Start Date End Da te methocarbamol (ROBAXIN) 500 mg tablet Take 1-2 Tabs by mouth every 6 hours as needed. muscle spasms Reorder 05/18/2010 06/07/2010 documented as of this encounter Care Teams Client Retention Specialist Relationship Specialty Start Date End Date Remedios Mehta MD [address] [place] [phone] PCP - General 02/19/09 01/04/15 documented as of this encounter
--- OUTSIDE RECORDS SUMMARY | 2024-06-24 02:24 | XMS_ITS | Encounter Summary ---
Author Organization [facility] Address [address] [place] [address] Care Team Providers Care Preschool Teacher Name Role Phone Remedios Mehta MD Primary Care Provider + [phone] Reason for Visit * Reason Comments Follow-up Right TKA 04/15/10 Encounter Details Date Type Department Care Team (Latest Contact Info) Description 05/17/2010 14:10 EDT Office Visit [facility] Total Joint Program - [address] [place], [place] [phone] Conchita Garza NP [address] [place], [place] [address] Osteoarthritis (Primary Dx) Social History Tobacco Use [...] PRN PAIN 40 Tab 0 05/17/2010 05/27/2010 documented in this encounter Progress Notes * Conchita Duenas NP - 05/17/2010 1414 EDT TKR follow-up visit (4 week global) Chief Complaint Patient presents with ??? Follow-up Right TKA 04/15/10 SUBJECTIVE: Patient here at four weeks after uncomplicated right total knee arthroplasty. Pain welll controlled on current regimen. Denies any chest pain or hortness of breath during postop period. No wound drainage since discharge. Modest calf swelling, decreasing with time. No interval changes in health status, medication reconciliation completed. Complications Since Last Visit? None [facility] complication sheet completed OBJECTIVE: Afebrile, alert and oriented X 3, pain score reviewed Wound sealed and healthy appearing. Modest swelling and tenderness without erythema. Range of motion: 5 to 90 Neurovascular exam intact. IMAGING STUDY REVIEW: Immediate post-op films from hospital reviewed with patient and questions answered. No new images today: ASSESSMENT: Uncomplicated post-operative course following elective right total knee replacement PLAN: Mobilize with Phase II post-operative rehabilitation protocol. Oral analgesics as needed, tapering course. Antibiotic prophylaxis for dental/other procedures discussed and prescription offered. Rationale for clinical and radiographic surveillance follow-up discussed. Questions answered to verbalized satisfaction. documented in this encounter Plan of Treatment [...] PO EVERY 4-6 HOURS PRN PAIN Reorder 05/10/2010 05/17/2010 documented as of this encounter Care Teams Preschool Teacher Relationship Specialty Start Date End Date Remedios Mehta MD [address] [place] [phone] PCP - General 02/19/09 01/04/15 documented as of this encounter
--- OUTSIDE RECORDS SUMMARY | 2024-06-24 02:24 | XMS_ITS | Encounter Summary ---
Author Organization [facility] Address [address] [place] [address] Care Team Providers Care Net Application Support Specialist Name Role Phone Remedios Mehta MD Primary Care Provider [phone] Reason for Referral * Consult (Routine) - Closed Specialty Diagnoses / Procedures Referred By Joao proctor Referred To Contact Otolaryngology Diagnoses Hearing loss Yvonne Ibarra MD [address] [place] [phone] Abebe Menendez MD [address] [place] [address] [place]HAM [phone] Referral ID Status Reason Start Date Expiration Date V isits Requested Visits Authorized [id number] Closed Specialty Services Required 06/22/2010 1 1 Question Answer Reason for Request: hearing loss and vertigo Reason for Visit * Reason Comments Ear Fullness Encounter Details Date Type Department Care Team (Late st Contact Info) Description 06/22/2010 15:30 EDT Office Visit [facility] [address] [address] Yvonne Ibarra MD [address] [place] [phone] Hearing loss (Primary Dx); Vertigo; Vision loss of left eye Social History Tobacco Use Types Packs/Day Years [...] Sign Reading Time Taken Comments Blood Pressure 92/46 06/22/2010 1530 EDT Pulse 68 06/22/2010 1530 EDT Temperature - - Respiratory Rate - - Oxygen Saturation - - Inhaled Oxygen Concentration - - Weight 99.1 kg (218 lb 8 oz) 06/22/2010 1530 EDT Height - - Body Mass Index 42.67 04/29/2010 1445 EDT documented in this encounter Functional Status Cognitive Status Response Date of Assessm ent Because of a physical, menta l, or emotional condition, do you have serious difficulty concentrating, remembering, or making decisions? (5 years old or older) Yes 04/15/2010 documented as of this encounter Progress Notes * Yvonne Ibarra - 06/22/2010 1609 EDT Subjective: Patient ID: Cherelle Husain is an 50 y.o. female. Chief Complaint Patient presents with ??? Ear Fullness HPI Here for evaluation of a right ear complaint. Feels like there's wax in right ear Hearing loss over last 1 year Tinnitus almost constantly Left ear not completely normal either -- feels occasional fullness there as well -- but much less so than the right Tinnitus intermittent over past 2 years Balance problems; Lightheaded; Blurry vision; Drifting to one side But had right TKR recently and thinks that's affected her balance too Left upper quadrant of visual field is lost This is not a new problem Was worked up with MRI in [place] a few years ago I do not have that MRI result for review today She was told that MRI was normal, and she does not know the reason for her visual field cut Patient denies chest pain or dyspnea at rest or exertion, syncope, palpitations, orthopnea, or peripheral edema. No new abdominal complaints. Has chronic joint complaints; unchanged Patient Active Problem List Diagnoses Code ??? [...] Flavor Hives Anything with chocolate gives rash Social History Substance Use Topics ??? Tobacco Use: Quit quit 20+ yr ago ??? Alcohol Use: Yes very occasional ROS - See HPI Objective: BP 92/46 Pulse 68 Wt 99.111 kg (218 lb 8 oz) LMP 03/09/2010 Physical Exam NAD, A+O x 3,logical thought content No cerumen in either ear External canals and TMs with nml appearance bilaterally CN 2-12 intact, though she did describe feeling the left side of her face more prominently than theright during CN testing. Uvula and tongue were midline, no tremor. No nystagmus. Cooperative with exam No cerebellar findings 5+/= strength throughout No sensory deficits No cerebellar findings Gait steady, though antalgic from knee replacement Lungs CTA with normal resp effort RRR, s1s2, no murmur No peripheral edema, skin warm and dry Assessment: See plan Plan: Cherelle was seen today for ear fullness. Concern because of association of ear fullness with vertigo and hearing loss; Temporally related. Should r/o acoustic neuroma or other central lesion. Diagnoses and associated orders for this visit: Hearing loss - Ambulatory Consult Ent Vertigo ENT consult MRI of brain Vision loss of left eye -- not a new problem Review old records MRI Moderate complexity visit documented in this encounter Plan of Treatment Scheduled Referrals Name Type Priority Associated Diagnoses Orde r Schedule AMB CONSULT ENT Outpatient Referral Routine Hearing loss Ordered: 06/22/2010 documented as of this encounter Visit Diagnoses Diagnosis Hearing loss- Primary Unspecified hearing loss Vertigo Dizziness and giddiness Vision loss of left eye Unqualified visual loss, one eye documented in this encounter Care Teams Net Application Support Specialist Relationship Specialty Start Date End Date Remedios Mehta MD [address] [place] [phone] PCP - General 02/19/09 01/04/15 documented as of this encounter
--- OUTSIDE RECORDS SUMMARY | 2024-06-24 02:24 | XMS_ITS | Encounter Summary ---
Author Organization [facility] Address [address] [place] [address] Care Team Providers Care Officer Lieutenant Name Role Phone Remedios Mehta MD Primary Care Provider + [phone] Reason for Visit * Reason Comments Knee Pain s/p right total knee replacement 6.. Encounter Details Date Type Department Care Team (Late st Contact Info) Description 07/28/2010 15:40 EDT Office Visit [facility] Total Joint Program - [address] [place], [place] [phone] Yonathan Moreland MD Stiffness of knee joint; Knee joint replacement [...] as of this encounter Progress Notes * Yonathan Moreland MD - 07/28/2010 1640 EDT TKR follow-up visit (4 week global) Chief Complaint Patient presents with ??? Knee Pain s/p right total knee replacement 6.17.10 SUBJECTIVE: Patient here at 14 weeks after right total knee arthroplasty with decreasing ROM and appropriate frustration after she had been doing so well in the early post- op period. She does report to day for the first time that she was probably overdoing it on the stairs after the first few weeks and had an injury to the lateral aspect of her knee (unreported) and since that time has slowly had more troubles. No wound drainage since discharge. Modest calf swelling, decreasing with time. No interval changes in health status, medication reconciliation completed. Complications Since Last Visit? None [facility] complication sheet completed OBJECTIVE: Afebrile, alert and oriented X 3, pain score reviewed Wound sealed and healthy appearing. Modest swelling and tenderness without erythema. Range of motion: -0-85 Neurovascular exam intact. IMAGING STUDY REVIEW: Immediate post-op films from hospital reviewed with patient and questions answered. Recent AP knee and lateral views: personally reviewed these films which demonstrate well-aligned tibial, patellar and femoral components. No ectopic calcification, no subsidence. ASSESSMENT: Atypical post-operative course following elective right total knee replacement in a patient who hs been coping quite well with her fibromyalgia, PTSD, depression and developing stiffness after surgery PLAN: Patient Education: Over the course of today's 25 minute office visit, we discussed the diagnosis, differential diagnosis, normal anatomy, the pathoanatomy and this patient???s pertinent comorbidities. We discussed the spectrum of A.H.R.Q. evidence-based non-operative care including education, joint protection, therapeutic exercise for both cardiovascular fitness and joint function, oral medications, and injectable therapies. The patient may also use an assistive aid, and if using a can or single crutch, it should generallybe used in the hand opposite the symptomatic knee. We also discussed the spectrum of A.H.R.Q. evidence based operative treatment options using shared decision-making techniques, printed educational materials and A.A.O.S. online decision support tools. Specifically, the role of total knee arthroplasty was discussed in detail along with the common associated benefits of decreased pain and improved function and risks including but not limited - acute and delayed infection, fracture, stiffness possibly requiring manipulation, fixation failure and component loosening, the spectrum of venous thromboembolic disease and its implications, polyethylenewear and associated osteolysis, heterotopic bone formation, allergic reactions to materials, vascula r injury requiring urgent invention, neurologic injury from surgical manipulation or anesthesia interventions, temporary or permanent worsening of other medical conditions, anesthetic complications, and perioperative mortality (). The patient's questions were solicited and responded to with the patient's verbalized satisfaction.The patient's level of understanding was verified utilizing uha-upak-pem techniques. Greater than50% of today's encounter (25 minutes) was devoted to counseling and care coordination. With the degree of discomfort and disability, the patient would like to proceed with elective totalknee arthroplasty. Procedure booking: right total knee arthroplasty EUA, ERICA and cortisone injection Diagnostic: Routine preop labs including CBC, ESR and CRP Pre-operative consultation with PCP for risk factor assessment and co-morbid condition treatment recomendations Therapeutic: Pre-operative PT for evaluation and therapeutic exercise program Dental prophylaxis screening appointment documented in this encounter Plan of Treatment Not on file documented as of this encounter Results * (ABNORMAL) C-REACTIVE PROTEIN (07/30/2010 10:06 EDT) C-Reactive Protein 1.1(H) <1.0 mg/dl [facility] Blood specimen (specimen) 07/30/2010 10:06 EDT 07/30/2010 18:09 EDT Yonathan Moreland MD CHEMISTRY & BL OOD GAS ORDERABLES [facility] [address] [place] [address] * SED. RATE:WESTERGREN (07/30/2010 10:06 EDT) Sed. Rate Westergren 14 0 - 20 mm/hr [facility] Comment: Note: Sample greater than 4 hrs old (but less than 12 hrs) when tested. If refrigerated, sample is stable when tested within 12 hours of collection. Blood specimen (specimen) 07/30/2010 10:06 EDT 07/30/2010 18:09 EDT Yonathan Moreland MD HEMATOLOGY & P F4 ORDERABLES Performing Organization Address City/[facility] Co de Phone Number [facility] [address] [place] [address] * (ABNORMAL) HEMAGRAM (07/30/2010 10:06 EDT) WBC [...] LAB RDW-CV 13.1 11.7 - 14.6 % [facility] Blood specimen (specimen) 07/30/2010 10:06 EDT 07/30/2010 18:09 EDT Yonathan Moreland MD HEMATOLOGY & P F4 ORDERABLES Performing Organization Address City/[facility] Co de Phone Number [facility] [address] [place] [address] documented in this encounter Visit Diagnoses Diagnosis Stiffness of knee joint Stiffness of joint, not elsewhere classified, lower leg Knee joint replacement by other means documented in this encounter Care Teams Officer Lieutenant Relationship Specialty Start Date End Date Remedios Mehta MD [address] [place] [phone] PCP - General 02/19/09 01/04/15 documented as of this encounter
--- OUTSIDE RECORDS SUMMARY | 2024-06-24 02:24 | XMS_ITS | Encounter Summary ---
Author Organization [facility] Address [address] [place] [address] Care Team Providers Care Yeast Distiller Name Role Phone Remedios Mehta MD Primary Care Provider + [phone] Reason for Visit * Reason Comments Knee Pain Encounter Details Date Type Department Care Team (Latest Contact Info) Description 06/14/2010 8:20 EDT Office Visit [facility] Total Joint Program - [address] [place] [address] Conchita Garza NP [address] [place], [place] [phone] Osteoarthritis (Primary Dx) Discharge Disposition: Auto Discharge Social [...] PRN PAIN 40 Tab 0 06/14/2010 10/14/2010 documented in this encounter Discharge Disposition Disposition Code Departure Means Destination Auto Discharge documented in this encounter Progress Notes * Conchita Duenas NP - 06/14/2010 1100 EDT PROBLEM: S/P right TKA; increasing knee pain SUBJECTIVE: Cherelle returns to office today because of issues with right knee pain. Pain is present inthe posterior aspect of the knee. She feels there is swelling there and with pain and swelling she is having difficulty with bending the knee. She continues with outpatient physical therapy but is having difficulty getting beyond 90 degrees. She is taking vicodin for pain management. She denies nausea, vomiting, fever or chills. OBJECTIVE: This is a healthy appearing woman, awake, alert and oriented times 3 in NAD. She's a good historian. Right knee today with well healing incision with out redness, heat, no open areas. ROM 0 to 85. Has an area of swelling in posterior aspect of knee which is tender to palpation. Left kneewith out redness, swelling or effusion with ROM 0 to 95. New x-rays taken and reviewed revealing well placed prosthesis with out evidence of osteolysis or movement. ASSESSMENT AND MEDICAL DECISION MAKING: S/P right TKA with issues with posterior knee pain. 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 At this time don't feel there is an issue with infection, however we will obtain blood work, CRP, Sed rate and CBC to rule this out. As well we will move forward with an ultrasound with possilibity of draining cyst at the time of ultrasound. Until this time have discussed with her continuing with home exercises however will have her hold with outpatient physical therapy until after the above tests. Discussed this with the patient. All questions she had today were answered. She was happy with the above plan of care. Will follow back up with her in two weeks. Dr. Moreland saw the patient and agreed with the above plan of care. documented in this encounter Plan of Treatment Not on file documented as of this encounter Visit Diagnoses Diagnosis Osteoarthritis- Primary Osteoarthrosis, unspecified whether generalized or localized, unspecified site documented in this encounter Discontinued Medications Medication Sig Discontinue Reason Start Date End Da te senna (SENOKOT) 8.6 mg tablet Take 2 Tabs by mouth daily. 04/20/2010 06/14/2010 hydrocodone-acetaminophen (LORTAB;VICODIN) 5-500 mg per tablet Take 1-2 Tabs by mouth. TAKE 1-2 TABS PO EVERY 4-6 HOURS PRN PAIN Reorder 05/27/2010 06/14/2010 documented as of this encounter Care Teams Yeast Distiller Relationship Specialty Start Date End Date Remedios Mehta MD [address] [place] [phone] PCP - General 02/19/09 01/04/15 documented as of this encounter
--- OUTSIDE RECORDS SUMMARY | 2024-06-24 02:25 | XMS_ITS | Encounter Summary ---
Author Organization [facility] Address [address] [place] [address] Care Team Providers Care Digital Director Name Role Phone eRmedios Mehta MD Primary Care Provider [phone] Encounter Details Date Type Department Care Team (Late st Contact Info) Description 09/30/2009 Abstract [facility] [address] [place] [phone] Remedios Mehta MD [address] [place] [phone] Social History Tobacco Use Types Packs/Day Years Used Date Smoking Tobacco: Never Assessed Sex and Gender Information Value Date Recorded Sex Assigned at Not on file Gender Identity Female 2021 11:19 EDT Sexual Orientation Not on file documented as of this encounter Plan of Treatment Not on file documented as of this encounter Visit Diagnoses Not on filedocumented in this encounter Historical Medications * This list may reflect changes made after this encounter. Medication Sig Dispensed Refills Start Date End Date PREGABALIN (LYRICA ORAL) Take 1 Tab by mouth daily. One tablet nightly, does not remember dose 03/10/2010 added in this encounter Care Teams Digital Director Relationship Specialty Start Date End Date Remedios Mehta MD [address] [place] [phone] PCP - General 02/19/09 01/04/15 documented as of this encounter
--- OUTSIDE RECORDS SUMMARY | 2024-06-24 02:25 | XMS_ITS | Encounter Summary ---
Author Organization [facility] Address [address] [place] [address] Care Team Providers Care Hooker Off Name Role Phone Remedios Mehta MD Primary Care Provider [phone] Reason for Visit * Reason Onset Date Comments Medications Refill 02/03/2010 PROTONIX, ADV AIR Encounter Details Date Type Department Care Team (Late st Contact Info) Description 02/03/[address] [address] Remedios Mehta MD [address] [place] [phone] Medications Refill (PROTONIX, ADVAIR) Social History Tobacco Use Types Packs/Day Years Used Date Smoking Tobacco: Former Comments:quit 20+ yr ago Alcohol Use Standard Drinks/Week Comments Yes 0 (1 standard drink = 0.6 oz pur e alcohol) very occasional Sex and Gender Information Value Date Recorded Sex Assigned at Not on file Gender Identity Female 2021 11:19 EDT Sexual Orientation Not on file documented as of this encounter Ordered Prescriptions Prescription Sig Dispensed Refills Start Date End Da te omeprazole (PRILOSEC) 20 mg capsule Take 1 Cap by mouth 2 times daily. dose increase 60 Cap 3 02/03/2010 07/12/2011 fluticasone-salmeterol (ADVAIR DISKUS) 500-50 mcg/Dose diskus inhaler Inhale 1 Puff as directed 2 times daily. 1 Each 5 02/03/2010 01/14/2011 documented in this encounter Miscellaneous Notes * Telephone Encounter - Faby Spence - 02/03/2010 1347 EDT SHE IS OUT OF THE PRONTONIX documented in this encounter Plan of Treatment Not on file documented as of this encounter Visit Diagnoses Not on filedocumented in this encounter Discontinued Medications Medication Sig Discontinue Reason Start Date End Da te pantoprazole (PROTONIX) 40 mg tablet Take 40 mg by mouth 2 times daily. Cost of medication 02/03/2010 fluticasone-salmeterol (ADVAIR DISKUS) 500-50 mcg/Dose diskus inhaler Inhale 1 Puff as directed 2 times daily. Reorder 02/03/2010 documented as of this encounter Care Teams Hooker Off Relationship Specialty Start Date End Date Remedios Mehta MD [address] [place] [phone] PCP - General 02/19/09 01/04/15 documented as of this encounter
--- OUTSIDE RECORDS SUMMARY | 2024-06-24 02:25 | XMS_ITS | Encounter Summary ---
Author Organization [facility] Address [address] [place] [address] Care Team Providers Care Dyed Yarn Operator Name Role Phone Remedios Mehta MD Primary Care Provider + [phone] Reason for Visit * Reason Comments Knee Pain right knee pain fibr omyalgia? ongoing pain starting to hurt hip Encounter Details Date Type Department Care Team (Late st Contact Info) Description 01/26/2010 15:00 EDT Office Visit [facility] Sports Medicine Program - [address], [place] [id number] José Miguel Davidson Knee pain (Primary Dx) Social History Tobacco [...] - - Weight 99.3 kg (219 lb) 01/26/2010 1556 EDT Height 152.4 cm (5') 01/26/2010 1556 EDT Body Mass Index 42.77 01/26/2010 1556 EDT documented in this encounter Progress Notes * José Miguel Davidson PA-C - 01/26/2010 1638 EDT This office note has been dictated. documented in this encounter Plan of Treatment Not on file documented as of this encounter Procedures Procedure Name Priority Date/Time Associated Diagnosis Comments MR EXTREMITY KNEE WO CONTRAST 02/10/2010 14:42 EDT documented in this encounter Results * MR EXTREMITY KNEE WO CONTRAST (02/10/2010 14:42 EDT) Anatomical Region Laterality Modality Other 02/10/2010 14:4 2 EDT 02/11/2010 21:00 EDT Narrative 02/11/2010 21:00 EDT MR EXTREMITY KNEE WO CONTRAST ??Feb 10, 2010 02:42:00 PM Clinical History/Comments: Right knee pain Comparison: Radiographs January 26, 2010. Technique: Routine noncontrast right knee MRI with 6 sequences obtained. Findings: Small tricompartmental osteophytes are present. There is moderately severe degenerative joint disease in the medial femoral tibial compartment. This includes large areas of full-thickness or nekd-jlic-gzlnnmybz articular cartilage loss involving the anterior and middle portions of the medial compartment weight-bearing surfaces on both sides of the joint with milder chondral thinning posteriorly. The upper portion of the patellar medial facet and adjacent patellar apex show mild to moderate irregular articular cartilage loss (axial images 22-24). The femoral trochlear and lateral femorotibial compartment articular cartilage thickness is relatively preserved. There is a moderate size knee joint effusion. There are at least 2 low signal calcified chondral bodies in the posterior recess dorsal to the distal posterior cruciate ligament measuring 7 x 6 x 4 mm and 4.5 x 4 x 3 mm in size respectively (coronal image 20, axial image 16). There is a slightly thickened medial patellar plica is noted. The anterior and posterior cruciate ligaments, medial collateral ligament, lateral collateral ligamentous complex, popliteus tendon, patellar tendon and distal quadriceps tendon are intact. Mild anterior infrapatellar and pretibial edema is noted. The medial meniscus body segment is medially extruded. The medial meniscus body segment shows degenerative fraying of its inner margin. No lateral meniscus tear is identified. An elongated lobular and septate high T2 signal intensity structure with components superficial and deep to the posterior joint capsule near the midline most likely represents a multiloculated ganglion cyst (sagittal images 12 to 14). Fairly diffuse reticular low T1 and high T2 signal changes in the subcutaneous fat consistent with mild edema. Variable degrees of predominantly mild fatty infiltration of muscle groups in the right knee region. Impression: 1. Tricompartmental degenerative changes that are moderately severe in the medial compartment. Milder degenerative changes involve the upper portion of the patellar medial facet and median ridge. See above description. 2. Moderate size knee joint effusion. There are at least 2 low signal calcified chondral bodies in the posterior joint recess located dorsal to the distal posterior cruciate ligament. The displaced chondral bodies measure approximately 7 x 6 x 4 mm and 4.5 x 4 x 3 mm in size. 3. Medial extrusion of the medial meniscus body segment due to the fairly severe medial compartment degenerative disease. Medial meniscus body shows mild degenerative fraying involving its inner free margin. 4. Fairly diffuse reticular low T1 and high T2 signal changes in the subcutaneous fat consistent with mild edema. Please correlate clinically. Mild anterior infrapatellar and pretibial edema is also noted. 5. See above for details and additional findings. Procedure Note 02/11/2010 MR EXTREMITY KNEE WO CONTRAST Feb 10, 2010 02:42:00 PM Clinical History/Comments: Right knee pain Comparison: Radiographs January 26, 2010. Technique: Routine noncontrast right knee MRI with 6 sequences obtained. Findings: Small tricompartmental osteophytes are present. There is moderately severe degenerative joint disease in the medial femoral tibial compartment. This includes large areas of full-thickness or ihdc-gckv-agdwzrimw articular cartilage loss involving the anterior and middle portions of the medial compartment weight-bearing surfaces on both sides of the joint with milder chondral thinning posteriorly. The upper portion of the patellar medial facet and adjacent patellar apex show mild to moderate irregular articular cartilage loss (axial images 22-24). The femoral trochlear and lateral femorotibial compartment articular cartilage thickness is relatively preserved. There is a moderate size knee joint effusion. There are at least 2 low signal calcified chondral bodies in the posterior recess dorsal to the distal posterior cruciate ligament measuring 7 x 6 x 4 mm and 4.5 x 4 x 3 mm in size respectively (coronal image 20, axial image 16). There is a slightly thickened medial patellar plica is noted. The anterior and posterior cruciate ligaments, medial collateral ligament, lateral collateral ligamentous complex, popliteus tendon, patellar tendon and distal quadriceps tendon are intact. Mild anterior infrapatellar and pretibial edema is noted. The medial meniscus body segment is medially extruded. The medial meniscus body segment shows degenerative fraying of its inner margin. No lateral meniscus tear is identified. An elongated lobular and septate high T2 signal intensity structure with components superficial and deep to the posterior joint capsule near the midline most likely represents a multiloculated ganglion cyst (sagittal images 12 to 14). Fairly diffuse reticular low T1 and high T2 signal changes in the subcutaneous fat consistent with mild edema. Variable degrees of predominantly mild fatty infiltration of muscle groups in the right knee region. Impression: 1. Tricompartmental degenerative changes that are moderately severe in the medial compartment. Milder degenerative changes involve the upper portion of the patellar medial facet and median ridge. See above description. 2. Moderate size knee joint effusion. There are at least 2 low signal calcified chondral bodies in the posterior joint recess located dorsal to the distal posterior cruciate ligament. The displaced chondral bodies measure approximately 7 x 6 x 4 mm and 4.5 x 4 x 3 mm in size. 3. Medial extrusion of the medial meniscus body segment due to the fairly severe medial compartment degenerative disease. Medial meniscus body shows mild degenerative fraying involving its inner free margin. 4. Fairly diffuse reticular low T1 and high T2 signal changes in the subcutaneous fat consistent with mild edema. Please correlate clinically. Mild anterior infrapatellar and pretibial edema is also noted. 5. See above for details and additional findings. José Miguel Davidson [facility] [place] ORDERABLES documented in this encounter Visit Diagnoses Diagnosis Knee pain- Primary Pain in joint, lower leg * Evaluation - José Miguel Davidson PA-C - 01/27/2010 1150 EDT Sports Medicine [facility] [address] [place] [id number] NEW PATIENT EVALUATION - 01/26/2010 PROBLEMS: Right knee pain. SUBJECTIVE: The patient states she has been dealing with ongoing right knee pain for some 6 to 8 months or so. She notes pain mostly anterior and also bothers her in the popliteal fossa and has some pain that radiates into her calf. She is unsure of the exact onset. She does have a history of fibromyalgia and she states that she has many aches and pains, but this is becoming more exacerbated. Shenotes positive popping and catching without any giving way. See PRISM note for remaining review of systems and past medical history. OBJECTIVE: The patient is alert and oriented x3. In no obvious distress. Eyes equal and reactive tolight. No breathing difficulties. Exam of the knee reveals no evidence of obvious effusion. Range of motion from 0 to 120 degrees flexion with increasing pain on end flexion. The knee is stable to valgus varus stressors but the patient is quite apprehensive and reacts to any motion. She is stable to Lachmans anterior drawer testing but active squeezing her leg to perform the test elicits pain. She has generalized pain throughout the patella, medial and lateral joint lines, and there is some bogginess in the popliteal fossa, which is tender to palpation. The patella is hypomobile with some crep itus and some catching on extension. She is able to do straight leg raises without difficulty. X-rays are obtained and visualized by myself that does show some patellofemoral issues, but there is also a lucency in the mid popliteal region and ossification that is difficult to identify that is also quite near a flabellum. ASSESSMENT: Right knee pain. PLAN: At this point this is very difficult patient to really localize her pain well because of her generalized tenderness and history of fibromyalgia. 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 I think due to this ossification, it would be appropriate to obtain an MRI to better define any internal derangement. In the meantime I have instructed the patient to work on gentle range of motion, stationary biking, and quad strengthening exercises to tolerance. She should be cautious with any high impact pivoting or squatting. Ice canbe helpful for pain management but I have also recommended the use of Advil alternating with Tylenol . I think it would be best to have her followed up with one of the knee surgeons after these imaging studies for their exam and opinion. Electronically Signed by José Miguel Davidson PA-C 01/27/2010 11:50 Dictated by: José Miguel Davidson PA-C - José Miguel Davidson PA-C A - GLT Job ID: SM Doc ID: [id number] Ext Doc ID: [id number] cc: documented in this encounter Discontinued Medications Medication Sig Discontinue Reason Start Date End Da te lovastatin (MEVACOR) 20 mg tablet Take 20 mg by mouth at bedtime. Patient Stopped Taking 01/26/2010 documented as of this encounter Care Teams Dyed Yarn Operator Relationship Specialty Start Date End Date Remedios Mehta MD [address] [place] [phone] PCP - General 02/19/09 01/04/15 documented as of this encounter
--- OUTSIDE RECORDS SUMMARY | 2024-06-24 02:25 | XMS_ITS | Encounter Summary ---
Author Organization [facility] Address [address] [place] [address] Care Team Providers Care Senior Electrical Project Manager Name Role Phone Remedios Mehta MD Primary Care Provider [phone] Encounter Details Date Type Department Care Team (Late st Contact Info) Description 11/24/2009 13:10 EST - 11/24/2009 23:59 EST Hospital Encounter [facility] Rheumatology & Immunology - [facility] [address] [place], [place] [phone] Yovana Callejas MD [address] [place] [address] [phone] Discharge Disposition: Home or Self Care Social History Tobacco Use Types Packs/Day Years Used Date Smoking Tobacco: Never Assessed Sex and Gender Information Value Date Recorded Sex Assigned at Not on file Gender Identity Female 2021 11:19 EDT Sexual Orientation Not on file documented as of this encounter Medications at Time of Discharge Medication Sig Dispensed Refills Start Date End Date lubiprostone (AMITIZA) 24 mcg capsule Take 24 mcg by mouth as needed. 09/27/2010 MULTIVITAMINS (MULTIVITAMIN ORAL) Take 1 Tab by mouth daily. albuterol (ACCUNEB) 0.63 mg/3 mL nebulizer solution [...] times daily. 08/01/2012 duloxetine (CYMBALTA) 20 mg capsule Take 20 mg by mouth 2 times daily. 09/27/2010 11/08/2010 fluticasone-salmeterol (ADVAIR DISKUS) 500-50 mcg/Dose diskus inhaler Inhale 1 Puff as directed 2 times daily. 02/04/20 10 hydroxychloroquine (PLAQUENIL) 200 mg tablet Take 200 mg by mouth 2 times daily. 02/17/2010 loratadine (CLARITIN) 10 mg tablet Take 10 mg by mouth once daily. 02/17/2010 lorazepam (ATIVAN) 0.5 mg Tab Take 0.5 mg by mouth as needed. 03/05/2012 pantoprazole (PROTONIX) 40 mg tablet Take 40 mg by mouth 2 times daily. 02/03/2010 PREGABALIN (LYRICA ORAL) Take 1 Tab by mouth daily. One tablet nightly, does not remember dose 03/10/2010 trazodone (DESYREL) 50 mg tablet Take 1-2 Tabs by mouth at bedtime as needed for Sleep. 06/28/2010 zafirlukast (ACCOLATE) 20 mg tablet Take 20 mg by mouth 2 times daily. 01/14/2011 documented as of this encounter Discharge Disposition Disposition Code Departure Means Destination Home or Self Fpc documented in this encounter Progress Notes * Inpatient, Physician - 03/24/2010 1053 EDT * Inpatient, Physician - 03/09/2010 1540 EDT * Yovana Callejas MD - 11/24/2009 0000 EST DIVISION OF RHEUMATOLOGY PROGRESS/FOLLOWUP NOTE - 11/24/2009 CHIEF COMPLAINT: This patient is here in followup of fibromyalgia. She is having increasing pain due to stress surrounding her job and her father. Patient has also felt depressed and anxious has trouble sleeping. She reports that she has her chronic cough related to her asthma had problems with her irritable bowel but continues to take medication for it. PAST MEDICAL HISTORY: Fibromyalgia, asthma, reflux disease, IBS, obesity. MEDICATIONS: Reviewed and updated in chart. ALLERGIES: PENICILLIN, ASPIRIN, CODEINE and SULFA. 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 OBJECTIVE: On exam, blood pressure 124/68, pulse 70. Pain 7/10 in her elbows, legs, hips and knees.Skin no rashes or changes. HEENT is normal. Chest some wheezes. Cardiac regular rate and rhythm. Abdomen is obese. Gait is within normal limits. Neurologic: Alert and oriented myofascial tender points are present throughout. Osteoarthritic changes are noted in her hands. IMPRESSION: 1. Osteoarthritis, clinically stable, she will continue the hydrocodone one tablet a day as needed potential for addiction was reviewed. 2. Fibromyalgia. More active. She is on Cymbalta 60 mg daily, will increase this to 90 mg a day. Followup appointment in 4 to 6 months. 3. H1N1 vaccination today. Electronically Signed by Yovana Callejas MD 12/01/2009 15:59 Yovana Callejas MD - Yovana Callejas MD - DIS Job ID: SM Doc ID: [id number] Ext Doc ID: [id number] cc: Remedios Strong MD documented in this encounter Plan of Treatment Not on file documented as of this encounter Visit Diagnoses Not on filedocumented in this encounter Care Teams Senior Electrical Project Manager Relationship Specialty Start Date End Date Remedios Mehta MD [address] [place] [phone] PCP - General 02/19/09 01/04/15 documented as of this encounter
--- OUTSIDE RECORDS SUMMARY | 2024-06-24 02:25 | XMS_ITS | Encounter Summary ---
Author Organization [facility] Address [address] [place] [address] Care Team Providers Care Snowboard Designer Name Role Phone Remedios Mehta MD Primary Care Provider [phone] Reason for Visit * Reason Comments Knee Pain right knee pain Encounter Details Date Type Department Care Team (Late st Contact Info) Description 03/10/2010 15:00 EDT Office Visit [facility] Total Joint Program - [address] [place], [place] [id number] Yonathan Moreland MD OA (osteoarthritis) of knee [...] - Inhaled Oxygen Concentration - - Weight 93 kg (205 lb) 03/10/2010 1509 EDT Height 154.9 cm (5' 1) 03/10/2010 1509 EDT Body Mass Index 38.73 03/10/2010 1509 EDT documented in this encounter Patient Instructions * Patient Instructions* Yonathan Moreland MD - 03/11/2010 18:27 EDT 1) Home exercise program including low impact aerobic exercise Walking if tolerable, cycling, swimming, three times a week 2) Modest weight reduction (5% goal) 3) May use over the counter pain relievers as needed Tylenol, Ecotrin, Advil or Aleve, with food in your stomach, do not exceed dosing as written on thecontainer. 4) Follow-up with your Primary Care Provider for routine health maintenance 5) I encourage you to learn about your joint problems and here are suggested on- line high quality information sources: www.[facility].org/services/orthopedic_care www.orthoinfo.org (knee pain) www.saveyourknees.org (hip and knee pain) http://www.aaks.org/patients/patients.asp documented in this encounter Progress Notes * Yonathan Moreland MD - 03/11/2010 1827 EDT Total Knee Arthroplasty (decision for surgery) Chief Complaint Patient presents with ??? Knee Pain right knee pain HISTORY OF PRESENT ILLNESS: Cherelle Husain is a 49 y.o. female here as an established patient Patient complains of right knee pain. The pain began several months ago. The pain is located medial, lateral, anterior. She describes thesymptoms as aching, excruciating. Symptoms improve with rest, heat, ice, medication: NSAID used butnot effective. The symptoms are worse with activity. The knee has given out or felt unstable. The patient cannot bend and straighten the knee fully. Treatment to date has been ice, heat, Tylenol, NSAID's, without significant relief. Comprehensive health database form reviewed, completed with patient and signed. History reviewed: PMH, ROS, Family History, Social History, Surgical History, Meds, Allergies and Vitals Outside reports reviewed: office notes OXFORD KNEE SCORE: KOOS SCORE: N/A EQ5D: N/A PMH: Past Medical History Diagnosis Date ??? Fibromyalgia ??? Obesity ??? Asthma ??? Depression ??? Anxiety ??? GERD (gastroesophageal reflux disease) ??? Fibromyalgia ??? confirmed 1979,1982 2 vaginal deliveries PSH: Past Surgical History Procedure Date ??? Appendectomy ??? Hernia repair ??? Carpal tunnel release 22 years ago right endoscopic by dr. Hamilton Review of Systems: 12 system review completed as documented in EHR PHYSICAL EXAM General: Well-appearing female in no acute distress. Vital Signs: Ht 1.549 m (5' 1) Wt 92.987 kg (205 lb) Psychiatric: Mood and affect appropriate. A and O x3. Arises from seated position without pain, normal station with level pelvis in standing position. Musculoskeletal Exam: Gait - antalgic: right. Lumbar spine normal to inspection, palpation and motion Bilateral lower extremities show equal motion of the hips and ankles. RIGHT KNEE: Skin: Intact to inspection and palpation. ROM -10 to 100 Stability testing shows no instability to AP or varus-valgus stress. Varus mal-alignment. 1+ effusion. Positive patellofemoral crepitus. Positive pain to palpation of the medial joint line. No pain to palpation of the patellar tendon. LEFT KNEE: Skin: Intact to inspection and palpation. ROM -5 to 110 Stability testing shows no instability to AP or varus-valgus stress. No mal-alignment. No effusion. No patellofemoral crepitus. Positive pain to palpation of the medial joint line. No pain to palpation of the patellar tendon. Normal strength, tone, and stability of both lower extremities distally. Neurologic Exam: Intact sensation and reflexes in both lower extremities. Vascular: 2+ pedal pulses of both lower extremities. IMAGING STUDY REVIEW: Weight bearing arthritis series including bilateral AP knees, lateral knee and sunrise views: I personally reviewed these films revealing: Right knee: Kellgren-Kane grade 2/3 tibiofemoral joint changes Kellgren-Kane grade 2 patellofemoral joint changes. No loose bodies or ectopic calcification seen. Left knee: Kellgren-Kane grade 2 tibiofemoral joint changes Kellgren-Kane grade 2 patellofemoral changes. No loose bodies or ectopic calcification seen. ASSESSMENT: right knee DJD, gradually worsening PLAN: Patient Education: Over the course of today's 30 minute office visit, we discussed the diagnosis, [...] injury requiring urgent invention, neurologic injury from surgical, temporary or permanent worsening of other medical conditions, anesthetic complications, and perioperative mortality (). The patient's questions were solicited and responded to with the patient's verbalized satisfaction.The patient's level of understanding was verified utilizing wdr-[id number]-qgg techniques. Greater than50% of today's encounter was devoted to counseling and care coordination. With the degree of discomfort and disability, the patient would like to proceed with elective totalknee arthroplasty. Procedure booking: right total knee arthroplasty Components: Legion Primary TKR, CR Diagnostic: Routine preop labs Pre-operative consultation with PCP for risk factor assessment and co-morbid condition treatment recomendations Therapeutic: Pre-operative PT for evaluation and therapeutic exercise program Dental prophylaxis screening appointment documented in this encounter Plan of Treatment Not on file documented as of this encounter Visit Diagnoses Diagnosis OA (osteoarthritis) of knee- Primary Osteoarthrosis, unspecified whether generalized or localized, lower leg documented in this encounter Historical Medications * This list may reflect changes made after this encounter. Medication Sig Dispensed Refills Start Date End Date oxycodone (ROXICODONE) 5 mg immediate release tablet Take 5 mg by mouth every 4 hours as needed for Pain. 04/20/2010 added in this encounter Care Teams Snowboard Designer Relationship Specialty Start Date End Date Remedios Mehta MD [address] [place] [phone] PCP - General 02/19/09 01/04/15 documented as of this encounter
--- OUTSIDE RECORDS SUMMARY | 2024-06-24 02:25 | XMS_ITS | Encounter Summary ---
Author Organization [facility] Address [address] [place] [address] Care Team Providers Care Cost Engineer Name Role Phone Remedios Mehta MD Primary Care Provider [phone] Encounter Details Date Type Department Care Team (Late st Contact Info) Description 12/07/2009 Abstract [facility] - [address] [address] Sam Griffith MD LBP (low back pain); Pain in neck Social History Tobacco Use Types Packs/Day Years Used Date Smoking Tobacco: Never Assessed Sex and Gender Information Value Date Recorded Sex Assigned at Not on file Gender Identity Female 2021 11:19 EDT Sexual Orientation Not on file documented as of this encounter Plan of Treatment Not on file documented as of this encounter Visit Diagnoses Diagnosis LBP (low back pain) Lumbago Pain in neck Cervicalgia documented in this encounter Care Teams Cost Engineer Relationship Specialty Start Date End Date Remedios Mehta MD [address] [place] [phone] PCP - General 02/19/09 01/04/15 documented as of this encounter
--- OUTSIDE RECORDS SUMMARY | 2024-06-24 02:25 | XMS_ITS | Encounter Summary ---
Author Organization [facility] Address [address] [place] [address] Care Team Providers Care Welt Rander Name Role Phone Remedios Mehta MD Primary Care Provider [phone] Reason for Referral * Consult (Routine) - Closed Specialty Diagnoses / Procedures Referred By Joao proctor Referred To Contact Diagnoses Osteoarthritis Franck Rodney MD [address] [place] [address] Referral ID Status Reason Start Date Expiration Date V isits Requested Visits Authorized [id number] Closed Specialty Services Required 04/20/2010 1 1 Question Answer Reason for Request: wound care and childbirth educatorResidential Referral - Assessment: Wound Care Encounter Details Date Type Department Care Team (Latest Contact Info) Description 04/15/2010 9:43 EDT - 04/20/2010 16:37 EDT Hospital Encounter [facility] General Surgery [address] [place] [address] Yonathan Moreland MD Osteoarthritis Discharge Disposition: Home or Self Care Social [...] Reading Time Taken Comments Blood Pressure 103/65 04/20/2010 1435 EDT Pulse 82 04/20/2010 1435 EDT Temperature 36.1 ??C (97 ??F) 04/20/2010 1435 EDT Respiratory Rate 22 04/20/2010 1435 EDT Oxygen Saturation 96% 04/20/2010 1435 EDT Inhaled Oxygen Concentration - - Weight 90.7 kg (200 lb) 04/02/2010 09 EDT Height 153.7 cm (5' 0.5) 04/02/2010 09 EDT Body Mass Index 38.42 04/02/2010 09 EDT documented in this encounter Functional Status Cognitive Status Response Date of Assessm ent Because of a physical, menta l, or emotional condition, do you have serious difficulty concentrating, remembering, or making decisions? (5 years old or older) Yes 04/15/2010 documented as of this encounter Discharge Summaries * Ronel Franckmoreno Jean - 04/20/2010 0721 EDT Discharge Summary Chief Complaint/Reason for Admission: Right Knee Pain Admitted Via: [facility] Date: 04/15/2010 Principal/Final Diagnosis: Right knee osteoarthritis Principal Procedure: Right TKA Date: 04/15/2010 Condition at Discharge: Good Assessment at Discharge: Vital signs: Patient Vitals in the past 12 hrs: BP Temp Temp src Pulse Resp SpO2 Height Wt - Scale 04/20/10 0703 109/64 mmHg 35.9 ??C (96.6 ??F) - 80 16 96 % - - 04/19/102220 - - - - - 95 % - - 04/19/105 115/64 mmHg 36.5 ??C (97.7 ??F) - 86 18 86 % - - 04/19/108 122/61 mmHg - - 102 - - - - 04/19/101999 - - - 97 22 90 % - - 04/19/101935 - - - - - 93 % - - Hospital Course: The patient tolerated the procedure well. Recovered on the floor uneventfully. Pain was controlled with oral pain medicine. Voided independently, and was tolerating PO. PT evaluationrecommended dc to home. The patient was ready for dc. She did have a negative DVT ultrasound while in house. She was on Lovenox 30 BID per heme recs for DVT prophylaxis Please see Discharge instructions for wound care, bathing, activity recommendations. Relevant Studies at Discharge: none cc: MD Remedios Álvarez documented in this encounter Discharge Instructions * Discharge Instructions* Yovana Villa - 04/20/2010 12:51 EDT DIET Resume home diet ACTIVITY Exercises as prescribed by physical therapy No heavy lifting or strenuous activity for 4 weeks No driving until seen by your physician May RIDE in a car as needed Sexual activity - follow information provided pre-operatively SKIN/WOUND CARE Casey are to be removed 10-14 after your surgery. Visiting nurse will do this for you Clean dressing until casey removed to prevent snagging of casey on clothing Change dressing daily and call the office if drainage present May leave open to air AFTER casey out AND if no drainage BATHING/SHOWERING May take showers when wound dry for 48 hours May shower with wound uncovered DO NOT soak in tub SYMPTOMS TO CALL YOUR DOCTOR ABOUT Odor from incision Redness, swelling or drainage from wound Temperature greater than 101?? F Numbness in extremity Poor circulation (skin cool to touch or blue) Shortness of breath Pain unrelieved by medication No bowel movement within 3 days of discharge Skin rash APPOINTMENTS See Nurse Practitioner Conchita Duenas on May 17, 2010 at 2:10pm. ADDITIONAL MEDICATION INSTRUCTIONS: Take Lovenox as prescribed for blood clot prevention. Nursing Assessment at D/C: BP 119/64 Pulse 100 Temp 36.1 ??C (97 ??F) Resp 20 Ht 1.537 m (5' 0.5) Wt 90.719 kg (200 lb) SpO2 97% Pt A&Ox3. Lungs clear, but pt with expiratory wheezing with exertion, pt on scheduled and PRN nebulizer treatments for this. Abd soft, nontender. BS active x4 quads, pt had BM 04/19. Pt voiding without difficulty. R knee with drsg CD&I. Pulses +2 radial and pedal B/L. R knee with moderate edema around knee. Pain well controlled on PO pain meds. Lovenox teaching completed. Scripts given and D/C instructions reviewed, pt verbalizes understanding. documented in this encounter Medications at Time [...] mL into the skin every 12 hours. 60 Syringe 0 04/20/2010 04/29/2010 fluticasone-salmeter ol (ADVAIR DISKUS) 500-50 mcg/Dose diskus inhaler Inhale 1 Puff as directed 2 times daily. 1 Each 5 02/03/2010 01/14/2011 FOSINOPRIL SODIUM (MONOPRIL ORAL) Take 20 mg by mouth 2 times daily. Pt not sure of dose 06/22/2010 02/25/2011 hydroxychloroquine (PLAQUENIL) 200 mg tabletIndications:Ar thropathy Take [...] 03/05/2012 methocarbamol (ROBAXIN) 500 mg tablet Take 1 Tab by mouth every 6 hours as needed. muscle spasms 60 Tab 0 04/20/2010 05/07/2010 metoprolol (LOPRESSOR) 25 mg tabletIndications:Hy pertension Take 1 Tab by mouth 2 times daily. 180 Tab 4 03/10/2010 03/30/2011 omeprazole (PRILOSEC) 20 mg capsule Take 1 Cap by mouth 2 times daily. dose increase 60 Cap 3 02/03/2010 07/12/2011 oxycodone (ROXICODONE) 5 mg immediate release tablet Take 1-3 Tabs by mouth every 3 hours as needed for Pain. 80 Tab 0 04/20/2010 04/29/2010 PEG 3350-Electrolytes (MIRALAX) 17 gram packet Take [...] daily. 01/14/2011 documented as of this encounter Ordered Prescriptions Prescription Sig Dispensed Refills Start Date End Da te oxycodone (ROXICODONE) 5 mg immediate release tablet Take 1-3 Tabs by mouth every 3 hours as needed for Pain. 80 Tab 0 04/20/2010 04/29/2010 methocarbamol (ROBAXIN) 500 mg tablet Take 1 Tab by mouth every 6 hours as needed. muscle spasms 60 Tab 0 04/20/2010 05/07/2010 enoxaparin (LOVENOX) 30 mg/0.3 mL injection Inject 0.3 mL into the skin every 12 hours. 60 Syringe 0 04/20/2010 04/29/2010 documented in this encounter Discharge Disposition Disposition Code Departure Means Destination Home or Self Care documented in this encounter Progress Notes * Vidal Osborn, PT - 04/20/2010 1549 EDT Physical Therapy Rehabilitation Therapies Discontinue Note Acute Therapies SUBJECTIVE: No comment OBJECTIVE/EXAMINATION: Interventions completed: Patient was seen by [x] Physical Therapist [x] Physical Therapist Water Operator [x] Daily [x] Twice a day 5 days/week for 30-45 minute sessions for: [x] Therapeutic exercise [x] Therapeutic activities [x] Gait training [] Neuromuscular re-education [] Wheelchair training [] Self-care/management [x] Discharge planning [] Other: Please refer to the physical therapy notes for specific details on the patient???s functional status and treatment sessions. Patient status as documented by SOCIAL MEDIA DESIGNER at time of last treatment was: Therapeutic Activity: Transfers: Sit>supine with mod independence, increased time to complete Sit>stand x2 with mod indepependence Stand>sit x2 with mod independence Gait Training: Ambulation: 80 x2 ft with supervision with use of a rolling walker. Gait quality: reciprocal gait with decreased knee flexion, heel/toe progression and roman. Able to demo increased knee flexion and heel/toe progression with verbal/visual cues. Still limited and needs reinforcement. Stairs: up/down 3 steps with bilateral crutches and min contact A x1, cues for sequencing with goodcarryover. Therapeutic exercises: Hand out provided. Supine: ankle pumps, quad set, glut set, abduction, SLR and SAQ x 5, right Sitting:LAQ and knee flexion x 10 ea. A/AAROM Standing: knee flexion, hip flexion, abduction, extension and terminal knee extension x 10 ea with verbal and visual cues. Knee flexion sitting ~70 degrees, knee extension supine -5 degrees. Ice provided. ASSESSMENT/EVALUATION: Physical Therapy services in this setting have been discontinued secondary to: [] Goals met [] Patient has reached a plateau [] Patient non-compliant/declines [] Patient [] Patient has been/will be transferred to another setting [] Patient not appropriate for physical therapy services secondary to: [] Patient without treatment since initial examination. Please refer to initial evaluation note forassessment. Physical Therapy Diagnosis: Pt presents s/p right TKR with PT diagnosis of pain, decreased ROM, decreased strength with resultant functional limitations in mobility and gait. Physical Therapy Prognosis: As initially anticipated Mrs. Husain has made slow but steady progresswith ROM and mobility. Pain, edema, anxiety and SOB have been limiting factors to her progress, butshe is now at a level of mobility that allows for discharge home with her family and home health PT. She requires continued reinforcement of proper gait and progression of home program. It is anticipated that she will have a good outcome, but that it may take longer then typical pathway. Goals set at initial evaluation were achieved but it did take one or two more days to do so. PLAN/INTERVENTION: Discontinue physical therapy today. Recommended equipment needs: [] Cane [] Rolling walker [] Standard walker [] Hospital bed [] Shower chair [] Commode [] Raised toilet seat [] Wheelchair [] Crutches [] Other: Recommended discharge plan: [] Home alone [x] Home with caregiver [] Acute rehabilitation [] Subacute rehabilitation [] Assisted living facility [] Other: Recommended discharge services: [x] Home health physical therapy [] Outpatient physical therapy [] Physical therapy follow up per physician [] No physical therapy follow up services at this time [] Other: Beeper: [phone] OSBORN, ENEIDA 04/20/2010 3:49 PM * Solange Singletary - 04/20/2010 1420 EDT 30 days of lovenox for prophylaxis of dvt in pt with history of dvt and low antithrombin function. Call to [facility] prior auth line @ [phone] with the above information. [facility] has authorized oneweeks supply, will review request as a stat request. Will notify job specification writer of determination in 4 - 24 hrs. Solange Singletary RN/[facility] #[id number]. * Solange Singletary - 04/20/2010 1342 EDT Received call from pharmacist Ethan Gibson, pt script for bid lovenox x 30 days. Ins needs Prior auth,medical reason to authorize more than 7 days of lovenox. I have sent text page to Dr. Rodney to find out medical reason for 4 weeks of lovenox. Awaiting MD response. Solange Singletary RN/[facility] #[id number]. * Yovana Villa - 04/20/2010 1251 EDT Nursing Assessment at D/C: BP 119/64 Pulse 100 Temp 36.1 ??C (97 ??F) Resp 20 Ht 1.537 m (5' 0.5) Wt 90.719 kg (200 lb) SpO2 97% Pt A&Ox3. Lungs clear, but pt with expiratory wheezing with exertion, pt on scheduled and PRN nebulizer treatments for this. Abd soft, nontender. BS active x4 quads, pt had BM 04/19. Pt voiding without difficulty. R knee with drsg CD&I. Pulses +2 radial and pedal B/L. R knee with moderate edema around knee. Pain well controlled on PO pain meds. Lovenox teaching completed. Scripts given and D/C instructions reviewed, pt verbalizes understanding. * Yovana Villa - 04/20/2010 1153 EDT Pt to be d/c'd home on SQ Lovenox injections for DVT prevention. Gave pt Home Lovenox kit, and reviewed booklet with pt. Demonstrated and explained proper technique for injections, pt was able to return demonstrate and express verbal understanding.All questions answered. * Saba Villavicencio - 04/20/2010 0950 EDT Physical Therapy Rehabilitation Therapies Encounter Note Acute Therapies Treatment time/Duration: 0850/40 SUBJECTIVE: I feel better with the stairs. This exercise feels good (terminal knee extension). OBJECTIVE/EXAMINATION: Vital Signs: [] Vital signs have been stable with intervention and were not monitored. [] Vital signs were monitored and were stable throughout physical therapy session. Activity Heart Rate Blood Pressure Respiratory Rate Breath Sounds Oxygen Saturation/ Fractions of Inspired Oxygen Pre []Supine []Sitting Post []Supine [x]Sitting 90 bpm 98 % RA Therapeutic Activity: Transfers: Sit>supine with mod independence, increased time to complete Sit>stand x2 with mod indepependence Stand>sit x2 with mod independence Gait Training: Ambulation: 80 x2 ft with supervision with use of a rolling walker. Gait quality: reciprocal gait with decreased knee flexion, heel/toe progression and roman. Able to demo increased knee flexion and heel/toe progression with verbal/visual cues. Still limited and needs reinforcement. Stairs: up/down 3 steps with bilateral crutches and min contact A x1, cues for sequencing with goodcarryover. Therapeutic exercises: Hand out provided. Supine: ankle pumps, quad set, glut set, abduction, SLR and SAQ x 5, right Sitting:LAQ and knee flexion x 10 ea. A/AAROM Standing: knee flexion, hip flexion, abduction, extension and terminal knee extension x 10 ea with verbal and visual cues. Knee flexion sitting ~70 degrees, knee extension supine -5 degrees. Ice provided. Patient/Caregiver Education: [] No education provided Taught to: [x] Patient [] Caregiver [] Other: Topic: [x] Bed mobility [x] Transfers [x] Assistive device/technique [x] Stairs [x] Exercise [] Breathing exercises [] Positioning [x] Safety [x] Precautions/protocol [x] Equipment use [] Car transfers [x] Gait [] Activity pacing/energy conservation [x] Home program [x] Role of therapy [] Balance [] Discharge planning [] Other: Method: [x] Verbal [] Handout [x] Demonstration [] Tactile cues Barriers: [x] None noted [] Desire/motivation to learn [] Cognitive deficits [] Other: Outcome: [] Unable to learn [] Verbalized understanding [] Returned demonstration [x] Reinforcement needed ASSESSMENT/EVALUATION: Patient made good progress with PT this treatment. Able to transfer, ambulate and negotiate stairs without difficulty. Continues to need reinforcement at times for gait quality and ROM. Home with family support. PLAN/INTERVENTION: Continue per plan of care [] Plan for next treatment session: Recommended equipment needs: [] Cane [x] Rolling walker [] Standard walker [] Hospital bed [] Shower chair [] Commode [] Raised toilet seat [] Wheelchair [] Crutches [] Other: Recommended discharge plan: [] Home alone [x] Home with caregiver [] Acute rehabilitation [] Subacute rehabilitation [] Assisted living facility [] Other: Recommended discharge services: [x] Home health physical therapy [] Outpatient physical therapy [] Physical therapy follow up per physician [] No physical therapy follow up services at this time [] Other: Primary Therapist: Vidal Osborn Beeper: [phone] Villavicencio, MARCO A 04/20/2010 9:51 AM * Vidal Osborn, PT - 04/19/2010 1045 EDT Physical Therapy Rehabilitation Therapies Encounter Note Acute Therapies Treatment time/Duration: 930-1000 [id number] SUBJECTIVE: I have been having trouble with me breathing. Can you tell how nervous I am (about coming down stairs with crutches) PM: I need to get in the chair because if I sleep now I will not be able to sleep tonight OBJECTIVE/EXAMINATION: Vital Signs: [] Vital signs have been stable with intervention and were not monitored. [] Vital signs were monitored and were stable throughout physical therapy session. Activity Heart Rate Blood Pressure Respiratory Rate Breath Sounds Oxygen Saturation/ Fractions of Inspired Oxygen Pre []Supine []Sitting 100-127 n/e 89% on finger with bengali 98% ear Post []Supine []Sitting Patient sitting in chair on oxygen. Patient changed in and out of clothes independently Gait: Patient ambulated 120 feet with rolling walker with step thru gait pattern. Initially with minimal push off and knee flexion. Patient cued and instructed to increase heel to toe transition and to increase time involved LE has in contact with floor to promote knee flexion. She demonstrated improved quality post cues. Stairs: Up and down 3 steps with bilateral rails x 1, and with bilateral crutches x 2. Patient anxious about stairs with crutches. She lost balance posteriorly once requiring minimal contact assist otherwise supervision. Patient required verbal cueing for instruction and to recall sequencing x 2. Bed mobility/transfers: independent Therex: Patient read and did exercises with only occasional verbal cueing. She did 10 reps of the following exercises: Active: quad set, glut set and ankle pumps, SLR, SAQ, hip abduction Active Assistive: knee flexion with sheet Patient required verbal cues for hip/knee flexion and ankle pumps on technique. Patient/Caregiver Education: [] No education provided Taught to: [x] Patient [] Caregiver [] Other: Topic: [] Bed mobility [] Transfers [] Assistive device/technique [x] Stairs [] Exercise [] Breathing exercises [] Positioning [] Safety [] Precautions/protocol [] Equipment use [] Car transfers [] Gait [] Activity pacing/energy conservation [x] Home program [] Role of therapy [] Balance [] Discharge planning [] Other: Method: [x] Verbal [x] Handout [] Demonstration [] Tactile cues Barriers: [x] None noted [] Desire/motivation to learn [] Cognitive deficits [] Other: Outcome: [] Unable to learn [] Verbalized understanding [] Returned demonstration [x] Reinforcement needed PM session Vital Signs: [] Vital signs have been stable with intervention and were not monitored. [] Vital signs were monitored and were stable throughout physical therapy session. Activity Heart Rate Blood Pressure Respiratory Rate Breath Sounds Oxygen Saturation/ Fractions of Inspired Oxygen Pre []Supine []Sitting Expiratory wheezing towards end of treatment, reduced after instructing patient to cough 92% on room air-just finished respiratory treatment Post []Supine []Sitting Therex: Sitting exercises: knee extension x 10, knee flexion x 5- patient needed cue to not pull inhip flexors and to slow down Supine exercises: ankle pumps, quad sets, glut sets, hip/knee flexion, hip abduction, SAQ and SLR x10- patient demonstrating improved technique from this morning ROM 75 flexion sitting, 70 supine, knee extension supine - lacking 10 Gait: Patient ambulating 200 feet with rolling walker demonstrating step thru gait pattern and carryover of this mornings instruction to keep right foot on floor longer to increase knee flexion. Up and down stairs with 2 rails x 1, bilateral crutches x 1. Patient recalled proper sequencing andshe demonstrated decrease anxiety with use of crutches compared to this morning. Patient required minimal contact assist with crutches, supervision with rails Ice applied to knee post am and pm treatment Skin: significant edema mid thigh down to ankle. Patient with bruising anterior herman down to ankle Patient/Caregiver Education: [] No education provided Taught to: [x] Patient [] Caregiver [] Other: Topic: [] Bed mobility [] Transfers [] Assistive device/technique [x] Stairs [] Exercise [] Breathing exercises [] Positioning [] Safety [] Precautions/protocol [] Equipment use [] Car transfers [x] Gait [] Activity pacing/energy conservation [x] Home program [] Role of therapy [] Balance [] Discharge planning [] Other: Method: [x] Verbal [] Handout [] Demonstration [] Tactile cues Barriers: [x] None noted [] Desire/motivation to learn [] Cognitive deficits [] Other: Outcome: [] Unable to learn [] Verbalized understanding [] Returned demonstration [x] Reinforcement needed ASSESSMENT/EVALUATION: Patient SOB with activity demonstrating expiratory wheezing and increases HR with all activity. Sheis demonstrating increased mobility and progress with ROM and gait quality. Based on presentation today she should be ready for home with family and home health PT post am treatment tomorrow if cleared medically. Pain and edema have been the most limiting factors PLAN/INTERVENTION: Continue per plan of care [] Plan for next treatment session: Recommended equipment needs: [] Cane [] Rolling walker [] Standard walker [] Hospital bed [] Shower chair [] Commode [] Raised toilet seat [] Wheelchair [] Crutches [] Other: Recommended discharge plan: [] Home alone [x] Home with caregiver [] Acute rehabilitation [] Subacute rehabilitation [] Assisted living facility [] Other: Recommended discharge services: [x] Home health physical therapy [] Outpatient physical therapy [] Physical therapy follow up per physician [] No physical therapy follow up services at this time [] Other: Primary Therapist: Beeper: [phone] OSBORN PT 04/19/2010 10:45 AM * Franck Rodney - 04/19/2010 0504 EDT Orthopaedics Recon Admit Date: 04/15/2010 Hospital LOS: 4 days Postoperative Day 4 Subjective: No Acute Events. No BM. Negative DVT US Objective: Patient Vitals in the past 8 hrs: BP Temp Temp src Pulse Resp SpO2 Height Wt - Scale 04/19/10 0200 103/55 mmHg 36.1 ??C (97 ??F) - 109 18 96 % - - 04/18/10 2307 - - - - 20 96 % - - 04/18/10 2125 101/61 mmHg 36.1 ??C (97 ??F) - 101 18 97 % - - Intake/Output Summary (Last 24 hours) at 04/19/10 0504 Last data filed at 04/18/10 1748 Gross per 24 hour Intake 1920 ml Output 0 ml Net 1920 ml Patient is alert and oriented times three. Dressing Clean/Dry/Intact---changes, small area of bloody drainage 03/03 GS/TA/EHL/Peroneal muscle groups BLE LTSI DP/SP/SN/TN distributions BLE Feet WWP Data Review Recent Labs Basename 04/18/10 0807 04/17/10 0738 04/16/10 0653 ??? WBC 8.43 10.18 7.99 ??? HCT 26.5* 29.5* 28.5* ??? PLT 239 241 216 ??? NA 132* 135* 135* ??? K 4.2 4.1 4.3 ??? CL 93* 98 103 ??? CO2 31 27 24 ??? BUN 9* 7* 12 ??? CREATININE 0.75 0.69* 0.67* ??? INR -- -- 1.0 Assessment: Postoperative Day 4 s/p Right TKA Patient Active Hospital Problem List: *OA (osteoarthritis) of knee (02/18/2010) right Plan: DVT ppx: LOVENOX BID WBAT. Continue PT Pathway Dispo to home once passes PT Bowel meds * Keesha Calderon PTA - 04/18/2010 1430 EDT Physical Therapy Rehabilitation Therapies Encounter Note Acute Therapies Treatment time/Duration: 7754-9078 SUBJECTIVE: i think im going home monday OBJECTIVE/EXAMINATION: Vital Signs: [x] Vital signs have been stable with intervention and were not monitored. [] Vital signs were monitored and were stable throughout physical therapy session. Activity Heart Rate Blood Pressure Respiratory Rate Breath Sounds Oxygen Saturation/ Fractions of Inspired Oxygen Pre []Supine []Sitting Post []Supine []Sitting Therapeutic Activity: Supine to sit: modified indepednence Sit to Supine: modified independence Sit to stand:supervision, cues for proper hand placement given with pt demonstrating proper technique after. Stand to sit: supervision, cues for reaching back prior to sitting. Gait Training: Patient ambulated 75 feet with RW, requiring supervision assist to complete. Patient required cueing for equal stride lengths, pt taking larger strides with RLE and barely meeting with left, encouraged step through gait and pt did better. Decreased knee flexion noted with pt improving after cues. Patient navigated 3 stairs x2 reps once with 2 rails and once with crutches. Pt required cueing forproper crutch use, sequencing of stepping pattern. Cues for increased knee flexion to aid in stair clearance. With rails pt performed at supervision level, with crutches at min assist level. Pt had one loss of balance that needed assist to correct. Pt will need to perform with crutches as she has no rails at home. Therapeutic exercise: Pt able to perform supine aspects of home program with good technique, difficulty with flexion. Active: X 10 reps Supine Ankle pumps Quad sets Gluteal Sets Hip abduction Short arc quad Straight leg raise Active Assisted: x 10 reps Supine Hip/Knee flexion ROM: -3-60 supine -3-70 sitting Patient/Caregiver Education: [] No education provided Taught to: [x] Patient [] Caregiver [] Other: Topic: [] Bed mobility [] Transfers [x] Assistive device/technique [x] Stairs [x] Exercise [] Breathing exercises [] Positioning [x] Safety [x] Precautions/protocol [] Equipment use [] Car transfers [x] Gait [] Activity pacing/energy conservation [] Home program [] Role of therapy [] Balance [] Discharge planning [] Other: Method: [x] Verbal [] Handout [] Demonstration [] Tactile cues Barriers: [x] None noted [] Desire/motivation to learn [] Cognitive deficits [] Other: Outcome: [] Unable to learn [x] Verbalized understanding [] Returned demonstration [] Reinforcement needed ASSESSMENT/EVALUATION: Pt progressing well, will need more practice on stairs with crutches. Anticipate home tomorrow afternoon or Anais morning with home PT. PLAN/INTERVENTION: Continue per plan of care [x] Plan for next treatment session: Reinforce stair negotiation with crutches Recommended equipment needs: [] Cane [] Rolling walker [] Standard walker [] Hospital bed [] Shower chair [] Commode [] Raised toilet seat [] Wheelchair [] Crutches [] Other: Recommended discharge plan: [] Home alone [x] Home with caregiver [] Acute rehabilitation [] Subacute rehabilitation [] Assisted living facility [] Other: Recommended discharge services: [x] Home health physical therapy [] Outpatient physical therapy [] Physical therapy follow up per physician [] No physical therapy follow up services at this time [] Other: Primary Therapist: Radha Buckley Beeper: [phone] Keesha Delaney PTA 04/18/2010 2:30 PM * Yonathan Moreland MD - 04/18/201029 EDT ATTENDING POSTOP DAY 3 ROUNDS NOTE: S/P Right Total Knee Arthroplasty ASSESSMENT: Uncomplicated perioperative course following Right Total Knee Arthroplasty On track with total joint pathway goals. PLAN: Mobilize per total joint pathway with skilled PT. VTE prophylaxis per risk stratified protocol. Discharge care coordination in progress. PATIENT EDUCATION: Postop day 3 total joint pathway goals reviewed. Questions answered to patient's verbalized satisfaction. CARE COORDINATION: Care coordination discussed with house staff. Home care plan and goals discussed. Follow-up office visit schedule discussed. Yonathan Moreland M.D. Yonathan Moreland M.D. * Franck Rodney - 04/18/201028 EDT Orthopaedics Recon Admit Date: 04/15/2010 Hospital LOS: 3 days Postoperative Day 3 Subjective: Wheezing overnight, now improved, Knee/calf swollen. Objective: Patient Vitals in the past 8 hrs: BP Temp Temp src Pulse Resp SpO2 Height Wt - Scale 04/18/10 0859 - - - 100 20 96 % - - 04/18/10 0756 111/69 mmHg 36.8 ??C (98.2 ??F) - 99 - - - - 04/18/10 0602 - - - 92 16 94 % - - 04/18/10 0546 96/66 mmHg 36.8 ??C (98.2 ??F) - 96 16 96 % - - Intake/Output Summary (Last 24 hours) at 04/18/10 0928 Last data filed at 04/17/10 2219 Gross per 24 hour Intake 700 ml Output 0 ml Net 700 ml Patient is alert and oriented times three. Dressing Clean/Dry/Intact Calf swollen and tender 5/5 GS/TA/EHL/Peroneal muscle groups BLE LTSI DP/SP/SN/TN distributions BLE Feet WWP Data Review Recent Labs Basename 04/18/10 0807 04/17/10 0738 04/16/10 0653 ??? WBC 8.43 10.18 7.99 ??? HCT 26.5* 29.5* 28.5* ??? PLT 239 241 216 ??? NA -- 135* 135* ??? K -- 4.1 4.3 ??? CL -- 98 103 ??? CO2 -- 27 24 ??? BUN -- 7* 12 ??? CREATININE -- 0.69* 0.67* ??? INR -- -- 1.0 Assessment: Postoperative Day 3 s/p Right TKA Patient Active Hospital Problem List: *OA (osteoarthritis) of knee (02/18/2010) right Plan: DVT ppx: Lovenox WBAT. Continue PT DVT ultrasound given swollen calf * Saba Villavicencio - 04/17/2010 1225 EDT Physical Therapy Rehabilitation Therapies Encounter Note Acute Therapies Treatment time/Duration: SUBJECTIVE: It still hurts the same. Pulling across my knee. OBJECTIVE/EXAMINATION: Vital Signs: [x] Vital signs have been stable with intervention and were not monitored. [] Vital signs were monitored and were stable throughout physical therapy session. Activity Heart Rate Blood Pressure Respiratory Rate Breath Sounds Oxygen Saturation/ Fractions of Inspired Oxygen Pre []Supine []Sitting Post []Supine []Sitting 90 bpm 98 % RA Therapeutic Activity: Transfers: Supine>sit with supervision, decrease use of rail. Sit>stand x2 (bed and toilet), supervision, cues for hand placement Stand>sit x2 (chair and toilet), supervision, cues for hand placement Gait Training: Ambulation: 80 and 20 ft with close supervision with use of a rolling walker. Gait quality: non-reciprocal, antalgic gait initially with decreased foot flat initially and significant UE weight bearing. Able demo reciprocal gait with increased weight bearing on right LE, increased heel/toe progression and improved posture. Step length still inconsistent with variable heel/toe progression. Therapeutic exercises: Hand out provided. Supine: ankle pumps, quad set, glut set, abduction and SAQ x 10, right Sitting:LAQ and knee flexion x 10 ea. A/AAROM Knee flexion sitting ~60 degrees, knee extension supine -5 degrees. Ice provided. Patient/Caregiver Education: [] No education provided Taught to: [x] Patient [] Caregiver [] Other: Topic: [x] Bed mobility [x] Transfers [x] Assistive device/technique [] Stairs [x] Exercise [] Breathing exercises [] Positioning [x] Safety [x] Precautions/protocol [x] Equipment use [] Car transfers [x] Gait [] Activity pacing/energy conservation [x] Home program [] Role of therapy [] Balance [] Discharge planning [] Other: Method: [x] Verbal [] Handout [x] Demonstration [] Tactile cues Barriers: [] None noted [] Desire/motivation to learn [] Cognitive deficits [x] Other: Outcome: [] Unable to learn [] Verbalized understanding [] Returned demonstration [x] Reinforcement needed ASSESSMENT/EVALUATION: Patient made good progress with PT this treatment. Improved gait quality and ROM (however, still limited). Hopeful for discharge home tomorrow but with need to trial stairs, work on gait quality and ROM. PLAN/INTERVENTION: Continue per plan of care [] Plan for next treatment session: Recommended equipment needs: [] Cane [x] Rolling walker [] Standard walker [] Hospital bed [] Shower chair [] Commode [] Raised toilet seat [] Wheelchair [] Crutches [] Other: Recommended discharge plan: [] Home alone [x] Home with caregiver [] Acute rehabilitation [] Subacute rehabilitation [] Assisted living facility [] Other: Recommended discharge services: [x] Home health physical therapy [] Outpatient physical therapy [] Physical therapy follow up per physician [] No physical therapy follow up services at this time [] Other: Primary Therapist: Radha Buckley Beeper: [phone] Saba Villavicencio PTA 04/17/2010 12:25 PM * Franck Rodney - 04/17/2010 0931 EDT Orthopaedics Recon Admit Date: 04/15/2010 Hospital LOS: 2 days Postoperative Day 2 Subjective: No Acute Events Objective: Patient Vitals in the past 8 hrs: BP Temp Temp src Pulse Resp SpO2 Height Wt - Scale 04/17/10 0841 117/57 mmHg - - 91 - - - - 04/17/10 0528 - - - 88 18 97 % - - 04/17/10 0500 108/51 mmHg 36.4 ??C (97.5 ??F) - 99 16 92 % - - Intake/Output Summary (Last 24 hours) at 04/17/10 0932 Last data filed at 04/17/10 0900 Gross per 24 hour Intake 2190 ml Output 0 ml Net 2190 ml Patient is alert and oriented times three. Dressing with mild drainage, inferior wound dermabonded 5/5 GS/TA/EHL/Peroneal muscle groups BLE LTSI DP/SP/SN/TN distributions BLE Feet WWP Data Review Recent Labs Basename 04/17/10 0738 04/16/10 0653 ??? WBC 10.18 7.99 ??? HCT 29.5* 28.5* ??? PLT 241 216 ??? NA 135* 135* ??? K 4.1 4.3 ??? CL 98 103 ??? CO2 27 24 ??? BUN 7* 12 ??? CREATININE 0.69* 0.67* ??? INR -- 1.0 Assessment: Postoperative Day 2 s/p Right TKA Patient Active Hospital Problem List: OA (osteoarthritis) of knee (02/18/2010) right Plan: DVT ppx: Lovenox 30 BID WBAT. Continue PT Pathway Dispo to home Monday * Solange Singletary - 04/16/2010 1600 EDT Solange Singletary Mental Health Orderly/[facility] Progress Notes 04/16/2010 1541 Case Management Assessment Working Diagnosis/Presenting Problem: Oa, s/p right total knee replacement. Living Arrangements: Lives alone, multi level condo. All needs available on the first level. 3 stairs to enter. 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 Will have assist 22/05 as needed. Existing Community Resources: arrangements made with [facility] SOCIAL MEDIA DESIGNER. Advanced Directives/DPOA: In place. Cultural/Spiritual Needs: N/a. Insurance/Financial Needs: N/a, Dharmesh Transportation Needs: N/a, erick Corley. Patient Goals: Home with VNA services. Assessment and Discharge Care Plan: Home with VNA. Solange Singletary RN/CCM #[id number]. * Maye Saba - 04/16/2010 1435 EDT Physical Therapy Rehabilitation Therapies Encounter Note Acute Therapies Treatment time/Duration: 1340/30 SUBJECTIVE: It hurts a lot. 8/10 pain. Just stretching and pulling. Need to go to the bathroom. OBJECTIVE/EXAMINATION: Vital Signs: [] Vital signs have been stable with intervention and were not monitored. [] Vital signs were monitored and were stable throughout physical therapy session. Activity Heart Rate Blood Pressure Respiratory Rate Breath Sounds Oxygen Saturation/ Fractions of Inspired Oxygen Pre []Supine []Sitting Post []Supine [x]Sitting 90 bpm 98 % RA Therapeutic Activity: Transfers: Supine>sit with supervision, use of right rail despite cues. Sit>stand x2 (bed and toilet), with min contact 1, cues for hand placement Stand>sit x2 (chair and toilet), with min contact a x1, cues for hand and right LE placement Gait Training: Ambulation: 20 x 2ft with min contact assist with use of a rolling walker. Gait quality: non-reciprocal, antalgic gait with decreased foot flat initially and significant UE weight bearing. Able to get foot flat with cues but otherwise unable to correct pattern anymore with cues. Therapeutic exercises: Hand out provided. Supine: ankle pumps, quad set, glut set, abduction and SAQ x 10, right Sitting:LAQ and knee flexion x 10 ea. A/AAROM Knee flexion sitting ~50 degrees, knee extension supine -5 degrees. Ice provided. Patient/Caregiver Education: [] No education provided Taught to: [x] Patient [] Caregiver [] Other: Topic: [x] Bed mobility [x] Transfers [x] Assistive device/technique [] Stairs [x] Exercise [] Breathing exercises [] Positioning [x] Safety [x] Precautions/protocol [x] Equipment use [] Car transfers [x] Gait [] Activity pacing/energy conservation [x] Home program [] Role of therapy [] Balance [] Discharge planning [] Other: Method: [x] Verbal [] Handout [x] Demonstration [] Tactile cues Barriers: [] None noted [] Desire/motivation to learn [] Cognitive deficits [x] Other: somnolence due to pain medication Outcome: [] Unable to learn [] Verbalized understanding [] Returned demonstration [x] Reinforcement needed ASSESSMENT/EVALUATION: Patient with significantly limited activity tolerance, gait quality and ROM due to pain, despite pre-medication by nursing. Making slow progress. PLAN/INTERVENTION: Continue per plan of care [] Plan for next treatment session: Recommended equipment needs: [] Cane [x] Rolling walker [] Standard walker [] Hospital bed [] Shower chair [] Commode [] Raised toilet seat [] Wheelchair [] Crutches [] Other: Recommended discharge plan: [] Home alone [x] Home with caregiver [] Acute rehabilitation [] Subacute rehabilitation [] Assisted living facility [] Other: Recommended discharge services: [x] Home health physical therapy [] Outpatient physical therapy [] Physical therapy follow up per physician [] No physical therapy follow up services at this time [] Other: Primary Therapist: Vidal Osborn Beeper: [phone] Saba Villavicencio PTA 04/16/2010 2:35 PM * Sami Kate - 04/16/2010 1301 EDT Post Anesthesia Evaluation Date of Service: 04/16/2010 The patient has been evaluated, assessed and discharged from anesthesia care with stable cardiorespiratory function and acceptable mental status, pain management, body temperature, fluid balance, andnausea/vomiting control. Additional monitoring and assessment needs have been addressed. If present, postoperative events are documented below. SAMI KATE 04/16/2010 1:01 PM * Hussein Chavez MD - 04/16/2010 0902 EDT Adult Recon Progress Note Procedure: R TKA Post-Operative Day 1 24 Hour Events:Post-op hypotension. Subjective: R knee pain, moderate - severe. Mild dizziness. Denies chest pain, shortness of breath, headache, nausea, vomiting, fever, chills, night sweats, numbness, weakness. Objective: BP 100/50 Pulse 104 Temp 38 ??C (100.4 ??F) Resp 16 Ht 1.537 m (5' 0.5) Wt 90.719 kg (200 lb) SpO2 93% Exam - General: NAD, alert and interactive. CV: Extremities warm with brisk capillary refill and no cyanosis. Resp: No increased work of breathing, no audible wheezing. Abdomen: Nondistended. Extremities: LTS intact RLE Musculoskeletal: / TA/GS/EHL. Wound: Dressing c/d/i Lab Data - Recent Labs Basename 04/16/10 0653 ??? HCT 28.5* ??? WBC 7.99 ??? PLT 216 ??? NA 135* ??? K 4.3 ??? BUN 12 ??? CREATININE 0.67* ??? INR 1.0 ??? CRP -- ??? SEDRATE -- Assessment: 50 y.o. female POD 1 above. Doing well though with pain, mild hypotension overnight. Patient Active Problem List Diagnoses Code ??? [...] knee 715.96P ??? Medial meniscus tear 836.0G Plan: Pain control. DVT Prophylaxis: Lovenox 30 bid Antibiotics: None Weight-bearing status: WBAT Disposition: pending pt eval Hussein Chavez MD Pager [phone] * Vidal Osborn, PT - 04/16/2010 4806 EDT Physical Therapy Rehabilitation Therapies Initial Evaluation Note Acute Therapies SUBJECTIVE: That was hard work. My knee is really throbbing again now OBJECTIVE/EXAMINATION: Patient Profile: Patient is a 50 y.o. female admitted on 04/15/2010 secondary to Right Total Knee Arthroplasty. The patient lives in [place] [address]. TYPE OF RESIDENCE [] House [] Apartment [] Mobile home [] Assisted living [] Prison [x] Other: Condo LAYOUT [] One story [x] Multi-level [] Ramp entry [x] Entry stairs number: 3 [] With rails [x] Without rails [x] Interior stairs number: 15 [x] With rails [] Without rails Bedroom: [x] Upstairs [] Downstairs Bathroom: [x] Upstairs [x] Downstairs [x] Other: Has futon on first floor if necessary LIVES [] Alone [x] Family [] Other: CAREGIVER STATUS AVAILABLE [] No assistance [] Supervision [x] 24 hour assist [] maritime engineer assist [] Other: SERVICES PRIOR TO ADMISSION [x] None [] Home health nursing [] Home health physical therapy [] Home health aide [] Meals on wheels [] [facility] [] Outpatient therapy [] Other: OWNS [] Cane [x] Rolling walker [] Standard walker [] Hospital bed [] Commode [] Wheelchair [] Raised toilet seat [] Axillary crutches [] Loftstrand crutches [] Other: PRIOR FUNCTIONAL STATUS [x] Independent [] Assist needed with: OCCUPATION [] Retired [] Disabled [] Unemployed [] Student [] Homemaker [] Other: [] 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 Evaluation: 25 minutes Intervention: 15 minutes Patient/caregiver consented to physical therapy examination? [x] Yes [] Unable to obtain secondary to: Patient/caregiver concurs with plan/goals? [x] Yes [] Unable to determine secondary to: Precautions/Activity Order: PT evaluate and treat, TKR, WBTT, activity as tolerate, ambulate with assistive device Medical/Surgical History Current: Patient Active Problem List Diagnoses Code ??? [...] knee 715.96P ??? Medial meniscus tear 836.0G Past: Past Medical History Diagnosis Date ??? Fibromyalgia ??? Obesity ??? Asthma ??? Depression ??? Anxiety ??? GERD (gastroesophageal reflux disease) ??? Fibromyalgia ??? confirmed 1979,1982 2 vaginal deliveries Past Surgical History Procedure Date ??? Appendectomy ??? Hernia repair ??? Carpal tunnel release 22 years ago right endoscopic by dr. Hamilton Medications [x] Medication list reviewed [x] Pertinent current medications: Bowel meds, MVI, lovenox, robaxin, zofran, tylenol, amitiza, singulair, trazodone, calcarb, duo-neb, nizoral, claritin, plaquenil, lyrica, lopressor, monopril, roxicodone, protonix, dilaudid, cymbalta, ativan advair, albuterol MEDICAL TESTS/FINDINGS/PROCEDURES Right TKR 04/15/2010 Hct: 28.5 Hgb: 9.9 Quinonez: NE = Not Evaluated NE [] PAIN AND TENDERNESS [] No pain or tenderness reported during the physical therapy examination [x] History of: Patient reports: Location: Right knee Intensity: 8-9 out of 10 Frequency: constant Quality: Throbbing ache Alleviating factors: Meds, rest Aggravating factors: ROM, mobility PHYSIOLOGICAL/ANATOMICAL SYSTEMS DATA NE [] INTEGUMENTARY Palpation/Observation: [x] No gross deviations noted or reported [x] Skin: intact [x] Edema: Right knee [x] Other: Dressing c/d/i NE [] MUSCULOSKELETAL Active Range of Motion [x] Within normal limits except as noted: Left Upper Extremity: Right Upper Extremity: Left Lower Extremity: Right Lower Extremity: knee extension -20 degrees, knee flexion supine 50 degrees Cervical Spine: Lumber Spine: n/e NE [] POSTURE [x] No gross deviations noted [] Other: NE [] NEUROMUSCULAR/MOTOR FUNCTION Sensation: [x] Intact to light touch C2-T1 and throughout the lower extremities Impaired: (absent, diminished, hypersensitive) [] Light touch: [] Proprioception: [] Other: Strength: Evaluated in supine with HOB at 30 degrees Left Upper Extremity [] < 3/5 [] 4/5 [x] 5/5 Right Upper Extremity [] < 3/5 [] 4/5 [x] 5/5 Left Lower Extremity [] < 3/5 [] 4/5 [x] 5/5 Right Lower Extremity Df > 2/5, knee extension 3-/5, hip flexion >3/5, hip abduction 2-/5, Cervical Spine n/e Lumbar Spine n/e [] Formal resistive muscle testing was not performed due to: [] Motor Control: [] Other: NE [] BEHAVIOR/COGNITION [x] Alert [x] Oriented to Person, Place, and Time Oriented to: [] Person [] Place [] Time [] Other: NE [] CARDIOPULMONARY/AEROBIC CAPACITY Vital Signs- Activity Heart Rate Blood Pressure Respiratory Rate Breath Sounds Oxygen Saturation/ Fractions of Inspired Oxygen Pre []Supine []Sitting 96 106/59 94% Post []Supine []Sitting [] Effective cough [] Airway clearance: NE [] BALANCE [] Patient has a history of falls [x] No loss of balance observed throughout physical therapy session NE [] FUNCTIONAL MOTOR PERFORMANCE Rolling: n/e Supine to sit: With HOB at 30 degrees with rail, supervision Sit to supine: With HOB at 10 degrees and rail, supervision Sit to stand: Cues for hand placement, minimal contact assist Stand to sit: Cues for hand placement and joint protective techniques Bed to chair: n/e Chair to bed: n/e Other: NE [] GAIT Assistive Device: [] None [] Cane [] Rolling walker [x] Standard walker [] Platform walker [] Axillary crutches [] Loftstrand crutches [] Other: Distance/Assist/Deviations: wb status reviewed, Patient ambulated 20 feet with minimal contact assist. Patient maintaining right LE slightly flexed and wb thru her forefoot. With cues patient able todo foot flat, but minimally weightbearing. Patient with step to gait pattern. Cues to decrease walker advancement and for sequencing Stairs: [x] Not evaluated [] No assistive device [] Cane [] Axillary crutches [] Loftstrand crutches [] Other: Number of Steps: [] With rail [] Without rail Assist Needed: NE [x] SPECIAL TESTS [] Curran Balance Scale - Score: [] Timed Up and Go - Score: [] Tinetti Assessment Tool - Score: [] Six Minute Walk Test - Score: [] [facility] Level: [] Other: PHYSICAL THERAPY INTERVENTION TODAY: [] No treatment rendered Pt provided with TKR home exercise booklet and all precautions reviewed in detail Therex: active: ankle pumps, quad sets, glut sets, x 10 Active assistive: hip/knee flexion, hip abd/add, SLR x 10 Ice applied to knee post treatment Patient/Caregiver Education: [] No education provided Taught to: [x] Patient [] Caregiver [] Other: Topic: [] Bed mobility [] Transfers [] Assistive device/Technique [] Stairs [] Exercise [] Breathing exercises [] Positioning [] Safety [x] Precautions/Protocol [] Equipment use [] Car transfers [x] Gait [] Activity pacing/Energy conservation [x] Home program [] Role of therapy [] Balance [] Discharge planning [] Other: Method: [x] Verbal [x] Handout [] Demonstration [] Tactile cues Barriers: [x] None noted [] Desire/motivation to learn [] Cognitive deficits [] Other: Outcome: [] Unable to learn [] Verbalized understanding [] Returned demonstration [x] Reinforcement needed ASSESSMENT/EVALUATION: Upper quarter screen: [] No positive findings - no follow up needed [x] Positive findings do not have an impact on the patient???s function and require no monitoring, treatment, or detailed examination [] Positive findings (please refer to physical therapy prognosis section of Assessment/Evaluation for details) [] Upper quarter screen not completed--detailed examination completed per diagnosis needs Physical Therapy Diagnosis: Pt presents s/p right TKR with PT diagnosis of pain, decreased ROM, decreased strength with resultant functional limitations in mobility and gait. Physical Therapy Prognosis: Despite significant pain Mrs Husain tolerated the initiation of therexand mobility. Overall she is doing well functionally but due to her pain ROM is more challenging. Ianticipate that ROM will be slower due to muscle guarding and edema. Based on presentation I anticipate that she will be able to go home with family assist and home health PT within 1-3 days. Skilled physical therapy is indicated for progressive ROM/strengthening, gait training and therapeutic activities. Pain will be the most limiting factors SHORT TERM GOALS TIME FRAME: n/a n/a HAMMERSMITH HELPER GOALS TIME FRAME: n/a Patient will be independent with all bed mobility Patient will be independent with transfers Patient will be ambulating independently on level surfaces > 200 ft with the appropriate assistive device and minimal to no gait deviations Patient will demonstrate knee ROM of involved knee 90 degrees flexion, -10 extension Patient will be independent with the home exercise program Patient will be aware of and will demonstrate understanding of TKR precautions Patient independent up and down stairs demonstrating proper sequencing and assistive device use PLAN/INTERVENTION: [] Discontinue physical therapy today [x] Physical therapy to be provided by Physical Therapist and/or Physical Therapist Water Operator when medically appropriate Frequency: 7 days/week, [x] Daily [x] Twice a day Intensity: 30-45 minutes/session Duration: [x] During hospitalization [] Other: Interventions: [x] Therapeutic exercises [x] Therapeutic activities [x] Gait training [] Neuromuscular re-education [] Wheelchair training [] Self care/management [] Discharge planning [] Other: Patient/caregiver education: [x] Safety [] Equipment [] Role of physical therapy/rehabilitation [] Precautions [x] Recommendations [] Family training [x] Discharge planning [] Other: Additional data: Recommended equipment needs: [] Cane [] Rolling walker [] Standard walker [] Hospital bed [] Shower chair [] Commode [] Raised toilet seat [] Wheelchair [] Crutches [] Other: Recommended discharge plan: [] Home alone [x] Home with caregiver [] Acute rehabilitation [] Subacute rehabilitation [] Assisted living facility [] Other: Recommended discharge services: [x] Home health physical therapy [] Outpatient physical therapy [] Physical therapy follow up per physician [] No physical therapy follow up services at this time [] Other: Other recommendations: [] Speech Language Pathology consult [] Occupational Therapy consult [] Inpatient Rehabilitation consult [] Cattyman consult [] Other: Beeper: [phone] VIDAL OSBORN PT 04/16/2010 7:55 AM * Nahomi Driscoll - 04/15/2010 5258 EDT Active Multi-Disciplinary problems: FALL RISK [31657] (04/15/10) HEMODYNAMIC STATUS [04585] (04/15/10) OXYGENATION/RESPIRATORY FUNCTION [96751] (04/15/10) ACTIVITY INTOLERANCE/IMPAIRED MOBILITY [26100] (04/15/10) INFECTION [03352] (04/15/10) SAFETY [76512] (04/15/10) ELIMINATION [74801] (04/15/10) PRESSURE ULCER PREVENTION [11455] (04/15/10) Data: pt blood pressure has improved over evening shift. Other vitals remain stable and patient remains asymptomatic. BP 91/54 Pulse 84 Temp 36.2 ??C (97.2 ??F) Resp 16 Ht 1.537 m (5' 0.5) Wt 90.719 kg (200 lb) SpO2 97% Patient is becoming more alert and interactive and asking for food. Complaining of pain 06/08. Action: Medicated patient with 650 mg tylenol and 5 mg oxy IR. Response: will continue to monitor hemodynamic status and pain control. Pt is resting with call martin in reach. Nahomi Driscoll RN 04/15/2010 9:38 PM * Preeti Willams - 04/15/2010 1441 EDT Post Anesthesia Evaluation Date of Service: 04/15/2010 The patient has been evaluated, assessed and discharged from anesthesia care with stable cardiorespiratory function and acceptable mental status, pain management, body temperature, fluid balance, andnausea/vomiting control. Additional monitoring and assessment needs have been addressed. If present, postoperative events are documented below. PREETI WILLAMS MD 04/15/2010 2:41 PM * Yonathan Moreland MD - 04/15/2010 1136 EDT Attending Pre-operative Note Date of Surgery: 04/15/2010 Patient seen in preoperative area, consent discussion reaffirmed and the patient and family membersin attendance were oriented to the plan for the day and all questions were answered to their verbalized satisfaction. Patient history and physical was updated with any interval changes documented. Surgical site verification and marking completed. Orders reviewed and care plan discussed with surgical team. I feel this patient is appropriately prepared for planned surgical procedure. * Tamara Frazier RN - 04/02/2010 0818 EDT Cherelle Husain has been instructed as follows regarding medication administration for the day of the scheduled procedure. Date of Surgery: 04/15/10 Instructions for Taking Medications Day of Surgery Medication Last Dose Hold DOS Take DOS FOSINOPRIL SODIUM (MONOPRIL ORAL) Yes pregabalin (LYRICA) 25 mg capsule Yes metoprolol (LOPRESSOR) 25 mg tablet Yes ketoconazole (NIZORAL) 2 % cream Yes loratadine (CLARITIN) 10 mg tablet Yes hydroxychloroquine (PLAQUENIL) 200 mg tablet Yes fluticasone-salmeterol (ADVAIR DISKUS) 500-50 mcg/Dose diskus inhaler Yes omeprazole (PRILOSEC) 20 mg capsule Yes lorazepam (ATIVAN) 0.5 mg Tab Yes lubiprostone (AMITIZA) 24 mcg capsule Yes zafirlukast (ACCOLATE) 20 mg tablet Yes trazodone (DESYREL) 50 mg tablet Yes albuterol (PROVENTIL, VENTOLIN) 90 mcg/Actuation inhaler Yes CALCIUM CARBONATE/VITAMIN D3 (CALCIUM 600 WITH VITAMIN D3 ORAL) 04/08/10 MULTIVITAMINS (MULTIVITAMIN ORAL) 04/08/10 duloxetine (CYMBALTA) 20 mg capsule Yes albuterol (ACCUNEB) 0.63 mg/3 mL nebulizer solution Yes albuterol-ipratropium (DUONEB) 0.5-2.5 mg/3 mL nebulizer solution Yes documented in this encounter H&P Notes * Inpatient, Physician - 04/23/2010 0825 EDT documented in this encounter Procedure Notes * Inpatient, Physician - 04/25/2010 0720 EDTAssociated Order(s): IMPLANT RECORD (PACEMAKER ONLY) - SCANNED * Inpatient, Physician - 04/23/2010 0825 EDTAssociated Order(s): ORDERS - SCANNED * Inpatient, Physician - 04/23/2010 0825 EDTAssociated Order(s): ORDERS - SCANNED * Inpatient, Physician - 04/23/2010 0825 EDTAssociated Order(s): ECG REPORT - SCANNED documented in this encounter Nursing Notes * Inpatient, Physician - 04/16/2010 0829 EDT documented in this encounter OR Notes * OR PreOp - Inpatient, Physician - 04/23/2010 0825 EDT * Anesthesia Procedure Notes - Inpatient, Physician - 04/15/2010 1340 EDT * OR PreOp - Inpatient, Physician - 04/15/2010 1334 EDT * Anesthesia Preprocedure Evaluation - Inpatient, Physician - 04/15/2010 1154 EDT * OR Surgeon - Yonathan Moreland MD - 04/15/2010 1136 EDT DATE OF SERVICE: April 15, 2100 PREOPERATIVE DIAGNOSIS: 1) Right Knee osteoarthritis (715.96) 2) History of Venous Thrombophlebitis POSTOPERATIVE DIAGNOSIS: 1) Right Knee osteoarthritis (715.96) 2) History of Venous Thrombophlebitis PROCEDURE: 1) Right total knee arthroplasty (40510) SURGEON: Yonathan Moreland MD ASSISTANTS: MARIA Ventura (No skilled surgeon or resident available) Trang Keller SA ANESTHESIA: general INDICATIONS: Cherelle Husain is a 50 yrs patient who presents for a Right Total Knee Arthroplasty to address refractory symptoms and signs of knee arthropathy. COMPONENTS INSERTED: Femoral: size 5 Wing and Nephew Legion Oxinium primary CR, cemented Tibial insert: 11 mm dished high flex XLPE polyethylene insert (lot number [id number]) Tibial tray: size 4 Wing and Nephew Legion primary, cemented Patella: 35 mm Wing and Nephew resurfacing all-poly patella, cemented PMMA: 2 bags Simplex P with Tobramycin BONE RESECTIONS: Femoral: 6 degrees valgus alignment Distal: 2 mm Posterior: 2 mm Tibial: plus 2 mm off the intact side Patella: 7 mm restoring 22 mm composite thickness SPECIMENS: none ESTIMATED BLOOD LOSS: 325 mL FLUIDS: 2400 mL Ringers Lactate ANTIBIOTIC: cefazolin 2 grams URINE OUTPUT: 250 mL TOURNIQUET TIME: 42 minutes at 250 mmHg. SPONGE, NEEDLE, INSTRUMENT COUNT: Correct x 2. DRAINS: No wound drains. Haywood catheter to closed bag drainage COMPLICATIONS: none identified NARRATIVE After obtaining appropriate consent and completion of preoperative evaluation, the patient was seenin the preoperative hold area where the correct knee was identified and marked as the appropriate surgical site. Preoperative discussion completed and patient's questions were answered. The patient'sinformed consent understanding was reaffirmed including potential benefits of improvement in pain and function along with associated risks including (but not limited to) infection, nerve or blood vessel injury, fracture, instability, wound healing problems, complications of peripheral nerve block(s), osteolysis, component loosening and potential need for revision surgery. The patient was then escorted to the operating room, where after completion of the preprocedure briefing, the patient was administered the selected anesthetic, a Haywood catheter was placed, a cycling IPC boot was placed on the non-operative leg for VTE prophylaxis and the operative leg was scrubbed,prepped and draped in the usual sterile fashion. EUA: Extension -10 degrees , Flexion 120 degrees Intact collateral ligament function. Preoperative time-out and sign your site protocols were complied with. The selected prophylactic antibiotic was administered within 30 minutes of skin incision. After elevation for exsanguination, a padded proximal thigh tourniquet was inflated to 250 mmHg. Through a midline longitudinal incision and a medial parapatellar arthrotomy with a mid-vastus split, the knee was exposed, documenting the arthropathy as noted above. In stepwise fashion, using the four-point indexing technique, the femur was prepared with posteriorreferencing with anterior sizing in 3 degrees of external rotation based on Yashira's line (AP axis). The tibia was prepared with a 90- degree transverse 3-degree posterior slope cutting block referring the most intact side using the four-point indexing technique. The patella was prepared for an all-polyethylene resurfacing patellar construct. The soft tissues were balanced over trials and the ROM with the patella reduced and capsulotomy approximated was neutral extension and gravity hang flexion of 120 degrees with symmetric varus and valgus excursion at 0, 30, 60 & 90 degrees. No mid-flexion instability detected. Trials were removed, the bone ends were prepared with pulsating lavage, drilling and drying, while a double batch of Simplex P cement with tobramycin was prepared under vacuum-mixing conditions. Thereafter, the proximal tibial cut surface was coated with cement, using pressurization with the cementgun, the tibial component impacted and the excess cement debrided. Similarily, the femoral cut surfaces were coated with cement, pressurized with cement gun and the femoral component was impacted with excess cement debrided. Each bone cement interface was pressurized with the goal of approximately 3 - 5 mm cement intrusion. Finally, the patellar cut surface was coated with cement, pressurized with the cement gun and the all-polyethylene resurfacing patella engaged and held in place with a clampwhile debriding the excess cement. The selected thickness dished articular insert was engaged in a single attempt with solid capture. The cement was hard at 14 minutes and the tourniquet was released. Hemostasis was obtained with electrocautery. The knee soft tissues and component surfaces were irrigated with 4000 mL of irrigation fluid. The wound was closed in layers of #1 PDS suture for arthrotomy, 2-0 Monocryl for subcutaneous layers and surgical clips with Dermabond for skin. Sterile compression dressing applied. Unless otherwise noted, there were no complications, no blood loss, cultures obtained, specimens removed, or drains retained. DISPOSITION: The patient was discharged to the recovery room after uncomplicated emergence from anesthesia. REHABILITATION PLAN: Weight bearing as tolerated. Temporary total disability for 6 weeks, then temporary partial disability for 6 weeks VTE PROPHYLAXIS: Mechanical compression bilateral lower extremities Lovenox bridge & Sliding scale coumadin X four weeks (High risk for VTE) ANTIBIOTIC PROPHYLAXIS: Clindamycin 900 milligrams IV every 8 hours X 23 hours, then discontinue. documented in this encounter Miscellaneous Notes * Scanned Note-Null - Inpatient, Physician - 04/23/2010 0825 EDT * Scanned Note-Null - Inpatient, Physician - 04/23/2010 0825 EDT * Plan of Care - Yovana Villa - 04/20/2010 1244 EDT Problem: PAIN Goal: Patient's Pain/Discomfort Is Manageable Outcome: Completed Date Met: 04/20/10 Active Multi-Disciplinary problems: PAIN [74792] (04/16/10) Data: Pt c/o of pain of 5/10 at start of shift. Action: Medicated with PRN oxycodone, 500 mg Robaxin. Response: Pt reports pain improved after meds. Pt reports satisfied with pain control. Pt to go home on current pain regimen. Will continue to monitor until pt d/c'd home later today. YOVANA VILLA RN 04/20/2010 12:42 PM * Plan of Care - Saba Pool RN - 04/20/2010 0591 EDT Problem: PAIN Goal: Patient's Pain/Discomfort Is Manageable Intervention: Assess pain level Active Multi-Disciplinary problems: FALL RISK [64625] (04/15/10) HEMODYNAMIC STATUS [61813] (04/15/10) OXYGENATION/RESPIRATORY FUNCTION [67700] (04/15/10) ACTIVITY INTOLERANCE/IMPAIRED MOBILITY [07891] (04/15/10) INFECTION [35528] (04/15/10) SAFETY [93436] (04/15/10) ELIMINATION [67670] (04/15/10) PRESSURE ULCER PREVENTION [38004] (04/15/10) PAIN [25795] (04/16/10) Data: Pt ambulating out in hallway independently with rolling walker.. Positive CSMT's. Dressing was changed on eves. Pt I&O's qs'd. BM's noted yesterday after bowel meds. Pain being controlled with oxy ir. Action: Continue to assess for pain as needed and medicated with PRN tylenol and oxy ir. Response: Patient able to sleep on and off. Some relief noted from pain meds. On- going. Saba Pool RN 04/20/2010 5:25 AM * Plan of Care - Saba Pool RN - 04/19/2010 6072 EDT Problem: ELIMINATION Goal: Elimination Patterns Are Normal Or Improving Elimination patterns return to pre-surgery normal patterns Outcome: Met this shift. Active Multi-Disciplinary problems: FALL RISK [16284] (04/15/10) HEMODYNAMIC STATUS [61808] (04/15/10) OXYGENATION/RESPIRATORY FUNCTION [37159] (04/15/10) ACTIVITY INTOLERANCE/IMPAIRED MOBILITY [50514] (04/15/10) INFECTION [84000] (04/15/10) SAFETY [99320] (04/15/10) ELIMINATION [84736] (04/15/10) PRESSURE ULCER PREVENTION [27070] (04/15/10) PAIN [01865] (04/16/10) Data: Pt has not had a bowel movement in 4 days. Positive bowel sounds, passing flatus. Action: Milk of mag and suppository given. Pt up ambulating independently with walker. Response: Still monitoring. Physician wrote new order to start QD miralax. 0530- Positive BM. Saba Pool RN 04/19/2010 5:20 AM * Plan of Care - Yovana Villa - 04/17/2010 6869 EDT Problem: OXYGENATION/RESPIRATORY FUNCTION Goal: Patient Will Achieve/Maintain Normal Respiratory Rate/Effort Outcome: Ongoing Active Multi-Disciplinary problems: FALL RISK [18120] (04/15/10) HEMODYNAMIC STATUS [15737] (04/15/10) OXYGENATION/RESPIRATORY FUNCTION [73174] (04/15/10) ACTIVITY INTOLERANCE/IMPAIRED MOBILITY [66107] (04/15/10) INFECTION [00949] (04/15/10) SAFETY [72730] (04/15/10) ELIMINATION [82133] (04/15/10) PRESSURE ULCER PREVENTION [24057] (04/15/10) PAIN [34572] (04/16/10) Data: Pt with increased wheezing this shift after ambulating to the bathroom and back to bed. Pulseox 80-84% on RA. Lungs clear, inspiratory and expiratory wheezing audible without stethoscope, pt reports feeling SOB, and some tightness in upper chest and throat. Action: Pt was placed on 3L/NC of O2, pulse ox came up to 93-94%. Paged RT, who came up and gave ptalbuterol neb treatment. Resident senior process control tech (Dr. Pacheco) was also paged and came up to evaluate pt. Response: Pt less wheezy after neb treatment, but still remains with insp and exp wheezing, pt on 2L/NC O2, pulse ox 93-94%. Awaiting new orders from . Will continue to closely monitor. YOVANA VILLA RN 04/17/2010 10:00 PM * Plan of Care - Yovana Villa - 04/16/2010 2211 EDT Problem: OXYGENATION/RESPIRATORY FUNCTION Goal: Patient Will Achieve/Maintain Normal Respiratory Rate/Effort Outcome: Met This Shift Active Multi-Disciplinary problems: FALL RISK [68855] (04/15/10) HEMODYNAMIC STATUS [76463] (04/15/10) OXYGENATION/RESPIRATORY FUNCTION [23173] (04/15/10) ACTIVITY INTOLERANCE/IMPAIRED MOBILITY [68650] (04/15/10) INFECTION [96867] (04/15/10) SAFETY [20768] (04/15/10) ELIMINATION [18610] (04/15/10) PRESSURE ULCER PREVENTION [33032] (04/15/10) PAIN [45733] (04/16/10) Data: Around HS med administration, pt reported feeling a little tight in her airway and like sheneeded to cough something up. Some expiratory wheezing noted, pulse ox 94% on RA. Action: Paged RT to administer a PRN nebulizer treatment. Administered scheduled Advair. Response: Pt reports I feel much better now, and I was able to cough some stuff up. No more wheezing noted. Will continue to monitor. YOVANA VILLA RN 04/16/2010 10:07 PM * Plan of Care - Tiffanie Nguyen RN - 04/16/2010 0336 EDT Active Multi-Disciplinary problems: FALL RISK [72745] (04/15/10) HEMODYNAMIC STATUS [22648] (04/15/10) OXYGENATION/RESPIRATORY FUNCTION [49635] (04/15/10) ACTIVITY INTOLERANCE/IMPAIRED MOBILITY [30182] (04/15/10) INFECTION [77235] (04/15/10) SAFETY [91209] (04/15/10) ELIMINATION [13227] (04/15/10) PRESSURE ULCER PREVENTION [24151] (04/15/10) PAIN [16359] (04/16/10) Data: Pt blood pressure 83/43, pt states she feels dizzy and lightheaded HR 91, pain /10, states knee is throbbing Action: HOB lowered, call placed to MD, spoke with RIRI BOYER, ordered received for bolus, up and infusing Response: willmonitor Tiffanie Nguyen RN 04/16/2010 3:36 AM * Plan of Care - Tiffanie Nguyen RN - 04/16/2010 0226 EDT Problem: PAIN Goal: Patient's Pain/Discomfort Is Manageable Intervention: Assess pain level Active Multi-Disciplinary problems: FALL RISK [13329] (04/15/10) HEMODYNAMIC STATUS [65646] (04/15/10) OXYGENATION/RESPIRATORY FUNCTION [18200] (04/15/10) ACTIVITY INTOLERANCE/IMPAIRED MOBILITY [36316] (04/15/10) INFECTION [52763] (04/15/10) SAFETY [00059] (04/15/10) ELIMINATION [63898] (04/15/10) PRESSURE ULCER PREVENTION [11489] (04/15/10) PAIN [98944] (04/16/10) Data: Pt awake resting in bed, c/o pain 04/08, states her calf is cramping a lot, neg homans Action: repositioned, med with oxycodone 5mg, ice to RLE Response: pt sleeping no s/s of distress Tiffanie Nguyen RN 04/16/2010 2:23 AM * Plan of Care - Karlie Veronica RN - 04/15/2010 4769 EDT Problem: HEMODYNAMIC STATUS Goal: Patient Has Stable VS & Fluid Balance Intervention: Assess/monitor vital signs Pt hit floor from PACU VERY sleepy. Vitals low, pt had slight r sided droop. IV bolus hung, with ivf up. Haywood intact. MD notified Intervention: Assess peripheral pulses and capillary refill +csmts Intervention: Assess general color and body temperature Body temp low, warm blankets applied. C/o feeling cold hands Intervention: Administer medications as ordered No meds given due to being very sleepy Problem: OXYGENATION/RESPIRATORY FUNCTION Goal: Patient Will Achieve/Maintain Normal Respiratory Rate/Effort Intervention: Administer/titrate oxygen as ordered On 3 L o2 Problem: ELIMINATION Goal: Elimination Patterns Are Normal Or Improving Elimination patterns return to pre-surgery normal patterns Intervention: Assess bowel sounds Hypo BS Intervention: Assess for flatus - flatus * Brief Op Note - Nel Ryder PA - 04/15/2010 1311 EDT Brief Post-Op Note Date of Surgery: 04/15/2010 Surgeon: Dr. Moreland Assistants: Kimberley Ryder PA-C, Trang Keller SA Pre-Op Diagnosis: R knee pain Post-Op Diagnosis: same Procedure(s): Right total knee arthroplasty Findings: see operative report Anesthesia Type: General Estimated Blood Loss: Unless otherwise noted, there was no blood loss, specimens removed, cultures obtained, or drains retained. The estimated blood loss was 225cc Fluids: Cherelle Husain received Crystalloids 1500 mL of fluid replacement. Urine Output: 50cc TT: 42 minutes Specimens/Cultures: None Drains/Packs: Urinary Catheter (Haywood) inserted. Complications: None Disposition and Condition: Cherelle Husain was sent to PACU in Stable condition. MARIA MALONEY 04/15/2010 1:12 PM * Scanned Note-Null - Inpatient, Physician - 04/15/201046 EDT * Scanned Note-Null - Inpatient, Physician - 04/15/201046 EDT * Treatment Plan - Conchita Duenas NP - 2010 0911 EDT Patient was seen by hematology secondary to history of blood clot, per hematology plan is: Eight to twelve hours after surgery Ms Husain should receive Lovenox 30 mg subcutaneous x1 day 1. Day 1 postop she should start Lovenox 30 mg b.i.d. and continue this for a minimum of 30 days. documented in this encounter Plan of Treatment Scheduled Referrals Name Type Priority Associated Diagnoses Orde r Schedule AMB CONSULT HOME HEALTH SERVICES Outpatient Referral Routine Osteoarthritis Ordered: 04/20/2010 documented as of this encounter Procedures Procedure Name Priority Date/Time Associated Diagnosis Comments IMPLANT RECORD - SCANNED 04/25/2010 7:20 EDT ECG REPORT - SCANNED 04/23/2010 8:25 EDT ORDERS - SCANNED 04/23/2010 8:25 EDT ORDERS - SCANNED 04/23/2010 8:25 EDT COMPLETE BLOOD COUNT Routine 04/20/2010 5:56 EDT DRY POWDERED OR METERED DOSE INHALER Routine 04/20/2010 0:06 EDT NEBULIZER TX INTERMITTENT Routine 04/20/2010 0:06 EDT NEBULIZER TX INTERMITTENT Routine 04/20/2010 0:06 EDT NEBULIZER TX INTERMITTENT Routine 04/19/2010 13:54 EDT NEBULIZER TX INTERMITTENT Routine 04/19/2010 13:54 EDT NEBULIZER TX INTERMITTENT Routine 04/19/2010 13:54 EDT DRY POWDERED OR METERED DOSE INHALER Routine 04/19/2010 11:16 EDT COMPLETE BLOOD COUNT Routine 04/19/2010 6:41 EDT NEBULIZER TX INTERMITTENT Routine 04/18/2010 18:43 EDT DRY POWDERED OR METERED DOSE INHALER Routine 04/18/2010 13:13 EDT RAD US DOPPLER LOWER EXTREMITY VENOUS UNILATERAL STAT 04/18/2010 10:28 EDT COMPLETE BLOOD COUNT Routine 04/18/2010 8:07 EDT BUN Routine 04/18/2010 8:07 EDT GLUCOSE, SERUM Routine 04/18/2010 8:07 EDT CREATININE Routine 04/18/2010 8:07 EDT ELECTROLYTES Routine 04/18/2010 8:07 EDT NEBULIZER TX INTERMITTENT Routine 04/18/2010 6:11 EDT NEBULIZER TX INTERMITTENT Routine 04/18/2010 2:04 EDT COMPLETE BLOOD COUNT Routine 04/17/2010 7:38 EDT BUN Routine 04/17/2010 7:38 EDT GLUCOSE, SERUM Routine 04/17/2010 7:38 EDT CREATININE Routine 04/17/2010 7:38 EDT ELECTROLYTES Routine 04/17/2010 7:38 EDT SCREENING GLUCOSE Routine 04/16/2010 6:5 3 EDT PROTIME Routine 04/16/2010 6:53 EDT COMPLETE BLOOD COUNT Routine 04/16/2010 6:53 EDT BUN Routine 04/16/2010 6:53 EDT CREATININE Routine 04/16/2010 6:53 EDT ELECTROLYTES Routine 04/16/2010 6:53 EDT KNEE 1 OR 2 VIEWS 04/15/2010 14: 20 EDT documented in this encounter Results * IMPLANT RECORD (PACEMAKER ONLY) - SCANNED (04/25/2010 7:20 EDT) 04/25/2010 7:20 EDT Narrative Procedure Note Inpatient, Physician - 04/25/2010 7:20 EDT Physician Inpatient MD PROCEDURE/MINOR S URGICAL ORDERABLES * ECG REPORT - SCANNED (04/23/2010 8:25 EDT) 04/23/2010 8:25 EDT Narrative Procedure Note Inpatient, Physician - 04/23/2010 8:25 EDT Physician Inpatient MD PROCEDURE/MINOR S URGICAL ORDERABLES * ORDERS - SCANNED (04/23/2010 8:25 EDT) 04/23/2010 8:25 EDT Narrative Procedure Note Inpatient, Physician - 04/23/2010 8:25 EDT Physician Inpatient MD ADMISSION ORDERAB LES * ORDERS - SCANNED (04/23/2010 8:25 EDT) 04/23/2010 8:25 EDT Narrative Procedure Note Inpatient, Physician - 04/23/2010 8:25 EDT Physician Inpatient MD ADMISSION ORDERAB LES * (ABNORMAL) HEMAGRAM (04/20/2010 5:56 EDT) WBC 7.45 4.0 - 12.4 K/cmm [facility] RBC 2.77(L) 3.86 - 5.04 M/cmm [facility] Hemoglobin 8.8(L) 11.6 - 15.2 gm/dl [facility] HCT 24.6(L) 34.9 - 44.4 % [facility] MCV 89 81 - 98 fl [facility] MCH 31.8 26.7 - 33.3 pg [facility] MCHC 35.8 32.1 - 35.9 gm/dl [facility] PLT 317 141 - 320 K/cmm [facility] RDW-CV 13.5 11.7 - 14.6 % [facility] Blood specimen (specimen) 04/20/2010 5:56 EDT 04/20/2010 6:09 EDT Nel Ryder PA-C HEMATOLOGY & PF4 ORD ERABLES Performing Organization Address City/[facility] Co de Phone Number [facility] [address] [place] [address] * (ABNORMAL) HEMAGRAM (04/19/2010 6:41 EDT) WBC 8.71 4.0 - 12.4 K/cmm [facility] RBC 2.84(L) 3.86 - 5.04 M/cmm [facility] Hemoglobin 8.9(L) 11.6 - 15.2 gm/dl [facility] HCT 25.3(L) 34.9 - 44.4 % [facility] MCV 89 81 - 98 fl [facility] MCH 31.4 26.7 - 33.3 pg [facility] MCHC 35.3 32.1 - 35.9 gm/dl [facility] PLT 267 141 - 320 K/cmm [facility] RDW-CV 13.1 11.7 - 14.6 % [facility] Blood specimen (specimen) 04/19/2010 6:41 EDT 04/19/2010 7:15 EDT Nel Ryder PA-C HEMATOLOGY & PF4 ORD ERABLES Performing Organization Address City/[facility] Co de Phone Number [facility] [address] [place] [address] * RAD US DOPPLER LOWER EXTREMITY VENOUS UNILATERAL (04/18/2010 10:28 EDT) Anatomical Region Laterality Modality Other 04/18/2010 10:2 8 EDT 04/18/2010 19:23 EDT Narrative 04/18/2010 19:23 EDT RAD US DOPPLER LOWER EXTREMITY VENOUS UNILATERAL ??Apr 18, 2010 10:28:00 AM Signs and Symptoms/Comments: ??swollen calf, factor 5 leiden, s/p total knee Findings: Compression and color Doppler imaging of the deep veins of the right lower extremity was performed. There is extensive edema about the thigh. The right common vein and the upper and mid portions of the superficial femoral vein show normal compressibility, normal changes with respiration and augmentation and normal flow with no visible thrombus. The popliteal vein demonstrates normal blood flow on color Doppler exam, demonstrates a normal venous waveform and normal response to augmentation. The inferior portion of the superficial femoral vein demonstrates normal color blood flow, normal venous waveforms and normal changeability with augmentation. The tallow pumper was unable to compress this vessel but this was felt to be due to the overlying tense edema and not to thrombus. The right posterior tibial and peroneal veins show normal flow on color Doppler without visible thrombus. Impression: No right lower extremity deep venous thrombosis. Noncompressibility of the inferior portion of the superficial femoral vein relates soft tissue edema and not to thrombus. There is normal color flow, wave form and response to augmentation in this vessel. These results were communicated to Dr. Chavez. I have personally reviewed the images and the above interpretation and agree with the findings. Procedure Note Geoffrey Fregoso MD / Geoffrey Fregoso MD / Geoffrey Fregoso MD / Geoffrey Fregoso MD - 04/18/2010 RAD US DOPPLER LOWER EXTREMITY VENOUS UNILATERAL Apr 18, 2010 10:28:00 AM Signs and Symptoms/Comments: swollen calf, factor 5 leiden, s/p total knee Findings: Compression and color Doppler imaging of the deep veins of the right lower extremity was performed. There is extensive edema about the thigh. The right common vein and the upper and mid portions of the superficial femoral vein show normal compressibility, normal changes with respiration and augmentation and normal flow with no visible thrombus. The popliteal vein demonstrates normal blood flow on color Doppler exam, demonstrates a normal venous waveform and normal response to augmentation. The inferior portion of the superficial femoral vein demonstrates normal color blood flow, normal venous waveforms and normal changeability with augmentation. The tallow pumper was unable to compress this vessel but this was felt to be due to the overlying tense edema and not to thrombus. The right posterior tibial and peroneal veins show normal flow on color Doppler without visible thrombus. Impression: No right lower extremity deep venous thrombosis. Noncompressibility of the inferior portion of the superficial femoral vein relates soft tissue edema and not to thrombus. There is normal color flow, wave form and response to augmentation in this vessel. These results were communicated to Dr. Chavez. I have personally reviewed the images and the above interpretation and agree with the findings. Franck Rodney MD [facility] US ORDERABLES * (ABNORMAL) HEMAGRAM (04/18/2010 8:07 EDT) WBC 8.43 4.0 - 12.4 K/cmm [facility] RBC 2.98(L) 3.86 - 5.04 M/cmm [facility] Hemoglobin 9.2(L) 11.6 - 15.2 gm/dl [facility] HCT 26.5(L) 34.9 - 44.4 % [facility] MCV 89 81 - 98 fl [facility] MCH 30.8 26.7 - 33.3 pg [facility] MCHC 34.7 32.1 - 35.9 gm/dl [facility] PLT 239 141 - 320 K/cmm [facility] RDW-CV 13.2 11.7 - 14.6 % [facility] Blood specimen (specimen) 04/18/2010 8:07 EDT 04/18/2010 8:46 EDT Nel Ryder PA-C HEMATOLOGY & PF4 ORD ERABLES Performing Organization Address City/[facility]/ZIP Co de Phone Number [facility] [address] [place] [address] * (ABNORMAL) GLUCOSE, SERUM (04/18/2010 8:07 EDT) Glucose, Serum 129(H) 70 - 100 mg/dl [facility] Blood specimen (specimen) 04/18/2010 8:07 EDT 04/18/2010 8:46 EDT Nel Ryder PA-C CHEMISTRY & BLOOD GA S ORDERABLES Performing Organization Address [facility] [place]/[facility] Co de Phone Number [facility] [address] [place] [address] * CREATININE (04/18/2010 8:07 EDT) Creatinine 0.75 0.7 - 1.5 mg/dl [facility] GFR, Calculated >60 ml/min/1.7 3m2 [facility] Blood specimen (specimen) 04/18/2010 8:07 EDT 04/18/2010 8:46 EDT Nel Ryder PA-C CHEMISTRY & BLOOD GA S ORDERABLES Performing Organization Address [facility] de Phone Number [facility] [address] [place] [address] * (ABNORMAL) BUN (04/18/2010 8:07 EDT) BUN 9(L) 10 - 26 mg/dl [facility] Blood specimen (specimen) 04/18/2010 8:07 EDT 04/18/2010 8:46 EDT Nel Ryder PA-C CHEMISTRY & BLOOD GA S ORDERABLES Performing Organization Address [facility] Phone Number [facility] [address] [place] [address] * (ABNORMAL) ELECTROLYTES (04/18/2010 8:07 EDT) Sodium 132(L) 136 - 145 mEq/L [facility] Potassium 4.2 3.5 - 5.0 mEq/L [facility] Chloride 93(L) 96 - 110 mEq/L [facility] CO2 31 24 - 32 mEq/L [facility] Blood specimen (specimen) 04/18/2010 8:07 EDT 04/18/2010 8:46 EDT Nel Ryder PA-C CHEMISTRY & BLOOD GA S ORDERABLES Performing Organization Address [facility] de Phone Number [facility] [address] [place] [address] * (ABNORMAL) HEMAGRAM (04/17/2010 7:38 EDT) WBC 10.18 4.0 - 12.4 K/cmm [facility] RBC 3.29(L) 3.86 - 5.04 M/cmm [facility] Hemoglobin 10.2(L) 11.6 - 15.2 gm/dl [facility] HCT 29.5(L) 34.9 - 44.4 % [facility] MCV 90 81 - 98 fl [facility] MCH 30.9 26.7 - 33.3 pg [facility] MCHC 34.5 32.1 - 35.9 gm/dl [facility] PLT 241 141 - 320 K/cmm [facility] RDW-CV 13.2 11.7 - 14.6 % [facility] Blood specimen (specimen) 04/17/2010 7:38 EDT 04/17/2010 8:14 EDT Nel Ryder PA-C HEMATOLOGY & PF4 ORD ERABLES Performing Organization Address [facility] Co de Phone Number [facility] [address] [place] [address] * (ABNORMAL) GLUCOSE, SERUM (04/17/2010 7:38 EDT) Glucose, Serum 130(H) 70 - 100 mg/dl [facility] Blood specimen (specimen) 04/17/2010 7:38 EDT 04/17/2010 8:14 EDT Nel Ryder PA-C CHEMISTRY & BLOOD GA S ORDERABLES Performing Organization Address [facility] Co de Phone Number [facility] [address] [place] [address] * (ABNORMAL) CREATININE (04/17/2010 7:38 EDT) Creatinine 0.69(L) 0.7 - 1.5 mg/dl [facility] GFR, Calculated >60 ml/min/1.7 3m2 [facility] Blood specimen (specimen) 04/17/2010 7:38 EDT 04/17/2010 8:14 EDT Nel Ryder PA-C CHEMISTRY & BLOOD GA S ORDERABLES Performing Organization Address [facility] de Phone Number [facility] [address] [place] [address] * (ABNORMAL) BUN (04/17/2010 7:38 EDT) BUN 7(L) 10 - 26 mg/dl [facility] Blood specimen (specimen) 04/17/2010 7:38 EDT 04/17/2010 8:14 EDT Nel Ryder PA-C CHEMISTRY & BLOOD GA S ORDERABLES Performing Organization Address [facility] de Phone Number [facility] [address] [place] [address] * (ABNORMAL) ELECTROLYTES (04/17/2010 7:38 EDT) Sodium 135(L) 136 - 145 mEq/L [facility] Potassium 4.1 3.5 - 5.0 mEq/L [facility] Chloride 98 96 - 110 mEq/L [facility] CO2 27 24 - 32 mEq/L [facility] Blood specimen (specimen) 04/17/2010 7:38 EDT 04/17/2010 8:14 EDT Nel Ryder PA-C CHEMISTRY & BLOOD GA S ORDERABLES Performing Organization Address [facility] de Phone Number [facility] [address] [place] [address] * PROTIME (04/16/2010 6:53 EDT) Pro Time 12.0 9.9 - 13.1 secs [facility] I.N.R. 1.0 0.9 - 1.1 Ratio [facility] Comment: Moderate Intensity Coumadin INR = 2.0-3.0 Adjustments in anticoagulant therapy dose should be based upon the INR and NOT the Pro Time. Blood specimen (specimen) 04/16/2010 6:53 EDT 04/16/2010 7:18 EDT Nel Ryder PA-C HEMATOLOGY & PF4 ORD ERABLES Performing Organization Address [facility]/ZIP Co de Phone Number [facility] [address] [place] [address] * (ABNORMAL) HEMAGRAM (04/16/2010 6:53 EDT) Pathologist [facility] WBC 7.99 4.0 - 12.4 K/cmm [facility] RBC 3.20(L) 3.86 - 5.04 M/cmm [facility] Hemoglobin 9.9(L) 11.6 - 15.2 gm/dl [facility] HCT 28.5(L) 34.9 - 44.4 % [facility] MCV 89 81 - 98 fl [facility] MCH 30.8 26.7 - 33.3 pg [facility] MCHC 34.6 32.1 - 35.9 gm/dl [facility] PLT 216 141 - 320 K/cmm [facility] RDW-CV 13.2 11.7 - 14.6 % [facility] Blood specimen (specimen) 04/16/2010 6:53 EDT 04/16/2010 7:18 EDT Nel Ryder PA-C HEMATOLOGY & PF4 ORD ERABLES Performing Organization Address [facility] Co de Phone Number [facility] [address] [place] [address] * (ABNORMAL) CREATININE (04/16/2010 6:53 EDT) [facility] Creatinine 0.67(L) 0.7 - 1.5 mg/dl [facility] GFR, Calculated >60 ml/min/1.7 3m2 [facility] Blood specimen (specimen) 04/16/2010 6:53 EDT 04/16/2010 7:18 EDT Nel Ryder PA-C CHEMISTRY & BLOOD GA S ORDERABLES Performing Organization Address [facility] Co de Phone Number [facility] [address] [place] [address] * BUN (04/16/2010 6:53 EDT) BUN 12 10 - 26 mg/dl [facility] Blood specimen (specimen) 04/16/2010 6:53 EDT 04/16/2010 7:18 EDT Nel SIFUENTES-C CHEMISTRY & BLOOD GA S ORDERABLES Performing Organization Address [facility] de Phone Number [facility] [address] [place] [address] * (ABNORMAL) ELECTROLYTES (04/16/2010 6:53 EDT) Sodium 135(L) 136 - 145 mEq/L [facility] Potassium 4.3 3.5 - 5.0 mEq/L [facility] Chloride 103 96 - 110 mEq/L [facility] CO2 24 24 - 32 mEq/L [facility] Blood specimen (specimen) 04/16/2010 6:53 EDT 04/16/2010 7:18 EDT Nel VILLAGRANC CHEMISTRY & BLOOD GA S ORDERABLES Performing Organization Address [facility] de Phone Number [facility] [address] [place] [address] * (ABNORMAL) SCREENING GLUCOSE (04/16/2010 6:53 EDT) Glucose, Screening 167(H) 70 - 100 mg/dl [facility] Blood specimen (specimen) 04/16/2010 6:53 EDT 04/16/2010 7:18 EDT Nel SIFUENTES-Andrew CHEMISTRY & BLOOD GA S ORDERABLES Performing Organization Address [facility] de Phone Number [facility] [address] [place] [address] * KNEE 1 OR 2 VIEWS (04/15/2010 14:20 EDT) Anatomical Region Laterality Modality Other 04/15/2010 14:2 0 EDT 04/15/2010 19:51 EDT Narrative 04/15/2010 19:51 EDT KNEE 1 OR 2 VIEWS ??Apr 15, 2010 02:21:05 PM Clinical history: Osteoarthritis right knee s/p right total knee arthroplasty Comparison: Right knee radiographs dated January 26, 2010. Impression: AP and crosstable lateral views of the right knee show a total arthroplasty. The femoral and tibial components of the prosthesis appear well positioned. There has been also resurfacing of the patella. The overall alignment of the knee is satisfactory. Expected postsurgical changes are seen. Procedure Note 04/15/2010 KNEE 1 OR 2 VIEWS Apr 15, 2010 02:21:05 PM Clinical history: Osteoarthritis right knee s/p right total knee arthroplasty Comparison: Right knee radiographs dated January 26, 2010. Impression: AP and crosstable lateral views of the right knee show a total arthroplasty. The femoral and tibial components of the prosthesis appear well positioned. There has been also resurfacing of the patella. The overall alignment of the knee is satisfactory. Expected postsurgical changes are seen. Yonathan Moreland MD [facility] ORDERABLES documented in this encounter Visit Diagnoses Diagnosis Osteoarthritis Osteoarthrosis, unspecified whether generalized or localized, unspecified site OA (osteoarthritis) of knee Osteoarthrosis, unspecified whether generalized or localized, lower leg documented in this encounter Administered Medications Inactive Administered Medications - up to 3 most recent administrations Medication Order MAR Action Action Date Dose Rate Site acetaminophen (TYLENOL) tablet 1,000 mg 1,000 mg, oral, PRE-OP ONCE, 1 dose, On [place] 04/15/10 at 1030, Routine, Pre-Op DOS Rx Approved Given 04/15/2010 11:05 EDT 1,000 mg acetaminophen (TYLENOL) tablet 650 mg 650 mg, oral, EVERY 4 HOURS PRN, Starting on [place] 04/15/10 at 1654, Until Mon04/20/10 at 1839, Pain, Routine, On Unit Given 04/20/2010 14:48 EDT 650 mg Given 04/20/2010 10:39 EDT 650 mg Given 04/20/2010 5:22 EDT 650 mg albuterol (PROVENTIL HFA, VENTOLIN HFA) inhaler 2 Puff 2 Puff, inhalation, 4 TIMES DAILY, First dose on Mon04/18/10 at 0915, Until Discontinued, Routine Given 04/18/2010 17:00 EDT 2 Puffs Given 04/18/2010 13:14 EDT 2 Puffs albuterol (PROVENTIL HFA, VENTOLIN HFA) inhaler 2 Puff 2 Puff, inhalation, EVERY 6 HOURS PRN, Starting on [address] 04/18/10 at 1313, Until [address] 04/18/10 at 1845, Wheezing, Routine Given 04/18/2010 18:40 EDT 2 Puffs albuterol (PROVENTIL) 2.5 mg /3 mL (0.083 %) nebulizer solution 2.5 mg 2.5 mg, nebulization, EVERY 4 HOURS PRN, Starting on 04/17/10 at 2344, Until 04/20/10 at 1839, Wheezing, Routine Given 04/18/2010 23:06 EDT 2.5 mg albuterol (PROVENTIL) 2.5 mg /3 mL (0.083 %) nebulizer solution 2.5 mg 2.5 mg, nebulization, EVERY 6 HOURS, First dose (after last modification) on [address] 04/18/10 at 0600, Until Discontinued, Routine Given 04/18/2010 6:01 EDT 2.5 mg albuterol (PROVENTIL) 2.5 mg /3 mL (0.083 %) nebulizer solution 2.5 mg 2.5 mg, nebulization, EVERY 4 HOURS WHILE AWAKE, First dose (after last modification) on [address] 04/18/10 at 1000, Until Discontinued, Routine Given 04/18/2010 9:00 EDT mg albuterol (PROVENTIL) 2.5 mg /3 mL (0.083 %) nebulizer solution 2.5 mg 2.5 mg, nebulization, 4 TIMES DAILY - 8,12,17,21, First dose on [address] 04/18/10 at 2100, Until Discontinued, Routine Given 04/19/2010 10:17 EDT 2.5 mg Given by Other 04/18/2010 21:00 EDT 2.5 mg albuterol (PROVENTIL) 2.5 mg /3 mL (0.083 %) nebulizer solution 2.5 mg 2.5 mg, nebulization, 4 TIMES DAILY, First dose on 04/19/10 at 1415, Until Discontinued, Routine Given 04/20/2010 12:00 EDT 2.5 mg Given 04/20/2010 8:45 EDT 2.5 mg Given 04/19/2010 20:05 EDT 2.5 mg albuterol-ipratropium (DUO-NEB) 0.5-2.5 mg/3 mL nebulizer solution 3 mL 3 mL, nebulization, EVERY 4 HOURS PRN, Starting on [place] 04/15/10 at 1654, Until 04/18/10 at 0203, Wheezing, Routine Given 04/17/2010 21:38 EDT 3 mL Given 04/17/2010 19:20 EDT 3 mL Given 04/17/2010 14:21 EDT 3 mL ascorbic acid (VITAMIN C) tablet 500 mg 500 mg, oral, AT BEDTIME, First dose on [place] 04/15/10 at 2100, Until Discontinued, Routine, On Unit Given 04/19/2010 20:49 EDT 500 mg Given 04/18/2010 21:24 EDT 500 mg Given 04/17/2010 20:33 EDT 500 mg bisacodyl (DULCOLAX) suppository 10 mg 10 mg, rectal, AT BEDTIME PRN, 1 dose, Starting on 04/17/10 at 2100, Until 04/19/10 at 0459, Constipation, Routine, On Unit Given 04/19/2010 4:59 EDT 10 mg calcium carbonate (TUMS) 500 mg per chewable tablet Chew 1-2 Tab 1-2 Tablet, oral, EVERY 2 HOURS PRN, Starting on [place] 04/15/10 at 1654, Until Mon04/20/10 at 1839, Heartburn, epigastric stress, Routine, On Unit Given 04/17/2010 3:20 EDT 2 Tablets Calcium-Cholecalciferol (D3) (CALCARB) 600 mg(1,500mg) -200 unit per tablet 1 Tab 1 Tablet, oral, DAILY, First dose on [place] 04/15/10 at 1715, Until Discontinued, Routine Given 04/20/2010 8:36 EDT 1 Tablet Given 04/19/2010 8:20 EDT 1 Tablet Given 04/18/2010 8:37 EDT 1 Tablet Cholecalciferol (Vitamin D3) tablet 400 Units 400 Units, oral, AT BEDTIME, First dose on [place] 04/15/10 at 2100, Until Discontinued, Routine, On Unit Given 04/19/2010 20:49 EDT 400 Units Given 04/18/2010 21:24 EDT 400 Units Given 04/17/2010 20:33 EDT 400 Units clindamycin (CLEOCIN) IVPB 900 mg 900 mg, intravenous, Administer over 30 Minutes, PRE-OP ONCE, 1 dose, On [place] 04/15/10 at 1030, Routine, Pre-Op DOS Rx Approved Given 04/15/2010 11:05 EDT 900 mg dextrose 5 % and 0.9 % NaCl with KCl 20 mEq/L infusion at 100 mL/hr, intravenous, CONTINUOUS, Starting on [place] 04/15/10 at 1715, Until Mon04/16/10 at 1001, Routine Rate Documented 04/16/2010 8:16 EDT 100 mL /hr New Bag 04/16/2010 4:22 EDT 100 mL/hr New Bag 04/15/2010 16:59 EDT 100 mL/hr docusate sodium (COLACE) capsule 200 mg 200 mg, oral, 2 TIMES DAILY, First dose on [place] 04/15/10 at 2100, Until Discontinued, Routine, On Unit Given 04/20/2010 8:36 EDT 200 mg Given 04/19/2010 20:49 EDT 200 mg Given 04/19/2010 8:20 EDT 200 mg duloxetine (CYMBALTA) capsule 30 mg 30 mg, oral, 2 TIMES DAILY, First dose (after last modification) on [facility] 04/15/10 at 2100, Until Discontinued, Routine Given 04/20/2010 8:36 EDT 30 mg Given 04/19/2010 20:51 EDT 30 mg Given 04/19/2010 8:20 EDT 30 mg enoxaparin (LOVENOX) injection 30 mg 30 mg, subcutaneous, EVERY 12 HOURS, First dose on Mon04/16/10 at 0900, Until Discontinued, Routine, On Unit Given 04/20/2010 8:36 EDT 30 mg Given 04/19/2010 20:53 EDT 30 mg Given 04/19/2010 8:20 EDT 30 mg fluticasone-salmeterol (ADVAIR) 500-50 mcg/Dose diskus inhaler 1 Puff 1 Puff, inhalation, 2 TIMES DAILY, First dose (after last modification) on [facility] 04/15/10 at 2100, Until Discontinued, Routine Given 04/20/2010 8:36 EDT 1 Puff Given 04/19/2010 20:18 EDT 1 Puff Given 04/19/2010 8:20 EDT 1 Puff fosinopril (MONOPRIL) tablet 20 mg 20 mg, oral, DAILY, First dose on [place] 04/15/10 at 1715, Until Discontinued, Routine Given 04/20/2010 8:36 EDT 20 mg Given 04/19/2010 8:20 EDT 20 mg Given 04/18/2010 8:38 EDT 20 mg HYDROmorphone (PF) (DILAUDID) 1 mg/mL injection 0.2-0.8 mg 0.2-0.8 mg, intravenous, EVERY 4 HOURS PRN, Starting on [place] 04/15/10 at 1725, Until 04/19/10 at 0903, Pain, Routine Given 04/17/2010 0:24 EDT 0.3 mg Given 04/16/2010 9:45 EDT 0.4 mg Given 04/16/2010 5:32 EDT 0.4 mg hydroxychloroquine (PLAQUENIL) tablet 200 mg 200 mg, oral, 2 TIMES DAILY, 6 doses, First dose on [place] 04/15/10 at 2100, Last dose on 04/18/10 at 0900, Routine Given 04/18/2010 8:38 EDT 200 mg Given 04/17/2010 20:33 EDT 200 mg Given 04/17/2010 8:41 EDT 200 mg ketoconazole (NIZORAL) 2 % cream topical (top), DAILY, First dose on [place] 04/15/10 at 1715, Until Discontinued Given 04/20/2010 8:36 EDT Given 04/19/2010 8:20 EDT Given 04/18/2010 8:38 EDT lactated ringers (LR) infusion at 25 mL/hr, intravenous, CONTINUOUS, Starting on [place] 04/15/10 at 1100, Until [place] 04/15/10 at 1207, Routine, Pre Op Day of Surgery New Bag 04/15/2010 11:05 EDT 25 mL/hr lactated ringers (LR) infusion at 150 mL/hr, intravenous, CONTINUOUS, Starting on [place] 04/15/10 at 1230, Until [place] 04/15/10 at 1619, Routine, Recovery (only) Rate Documented 04/15/2010 14:32 EDT 150 mL/hr loratadine (CLARITIN) tablet 10 mg 10 mg, oral, DAILY, First dose on [place] 04/15/10 at 1715, Until Discontinued, Routine Given 04/20/2010 8:36 EDT 10 mg Given 04/19/2010 8:20 EDT 10 mg Given 04/18/2010 8:38 EDT 10 mg lubiprostone (AMITIZA) capsule 24 mcg 24 mcg, oral, 2 TIMES DAILY WITH BREAKFAST & DINNER, First dose on [place] 04/15/10 at 1715, Until Discontinued, Routine Given 04/20/2010 8:36 EDT 24 mcg Given 04/19/2010 16:00 EDT 24 mcg Given 04/19/2010 8:20 EDT 24 mcg magnesium hydroxide (MILK OF MAGNESIA) 400 mg/5 mL suspension 30 mL 30 mL, oral, AT BEDTIME PRN, 1 dose, Starting on 04/17/10 at 2100, Until 04/17/10 at 2044, Constipation, Routine, On Unit Given 04/17/2010 20:44 EDT 30 mL methocarbamol (ROBAXIN) tablet 500 mg 500 mg, oral, EVERY 6 HOURS PRN, Starting on 04/19/10 at 0901, Until 04/20/10 at 1839, muscle spasms, Routine, On Unit Given 04/20/2010 14:48 EDT 500 mg Given 04/20/2010 8:40 EDT 500 mg Given 04/19/2010 13:30 EDT 500 mg methocarbamol (ROBAXIN) tablet 500-1,000 mg 500-1,000 mg, oral, EVERY 6 HOURS PRN, Starting on [place] 04/15/10 at 1408, Until Mon04/19/10 at 0903, muscle spasms, Routine, On Unit Given 04/18/2010 16:40 EDT 1,000 mg Given 04/18/2010 8:36 EDT 1,000 mg Given 04/17/2010 20:45 EDT 1,000 mg metoprolol (LOPRESSOR) tablet 25 mg 25 mg, oral, 2 TIMES DAILY, First dose on [place] 04/15/10 at 2100, Until Discontinued, Routine Given 04/20/2010 8:36 EDT 25 mg Given 04/19/2010 20:53 EDT 25 mg Given 04/19/2010 8:20 EDT 25 mg montelukast (SINGULAIR) tablet 10 mg 10 mg, oral, AT BEDTIME, First dose on Mon04/15/10 at 2100, Until Discontinued, Routine Given 04/19/2010 20:51 EDT 1 0 mg Given 04/18/2010 21:25 EDT 10 mg Given 04/17/2010 20:33 EDT 10 mg morphine (MS CONTIN) CR tablet 15 mg 15 mg, oral, Once (Without Time Specified), 1 dose, Starting on Mon04/15/10 at 1032, Until Mon04/15/10 at 1105, Routine, Pre-Op DOS Rx Approved Given 04/15/2010 11:05 EDT 15 mg morphine (MS CONTIN) CR tablet 15 mg 15 mg, oral, EVERY 12 HOURS, First dose on Mon04/16/10 at 2100, Until Discontinued, Routine Given 04/18/2010 21:25 EDT 1 5 mg Given 04/18/2010 8:38 EDT 15 mg Given 04/17/2010 20:33 EDT 15 mg Multivitamins with Minerals tablet 1 Tab 1 Tablet, oral, AT BEDTIME, First dose on Mon04/15/10 at 2100, Until Discontinued, Routine, On Unit Given 04/19/2010 20:51 EDT 1 Tablet Given 04/18/2010 21:25 EDT 1 Tablet Given 04/17/2010 20:33 EDT 1 Tablet oxycodone (ROXICODONE) immediate release tablet 5-15 mg 5-15 mg, oral, EVERY 4 HOURS PRN, Starting on Mon04/15/10 at 1408, Until Mon04/16/10 at 1157, Pain, Routine, On Unit Given 04/16/2010 8:55 EDT 10 mg Given 04/16/2010 5:24 EDT 5 mg Given 04/16/2010 3:30 EDT 5 mg oxycodone (ROXICODONE) immediate release tablet 5-15 mg 5-15 mg, oral, EVERY 3 HOURS PRN, Starting on Mon04/19/10 at 0902, Until Mon04/20/10 at 1839, Pain, Routine Given 04/20/2010 14:48 EDT 15 mg Given 04/20/2010 11:44 EDT 15 mg Given 04/20/2010 8:40 EDT 15 mg oxycodone (ROXICODONE) immediate release tablet 5-20 mg 5-20 mg, oral, EVERY 3 HOURS PRN, Starting on Mon04/16/10 at 1200, Until Mon04/19/10 at 0903, Pain, Routine Given 04/19/2010 5:43 EDT 15 mg Given 04/19/2010 1:06 EDT 15 mg Given 04/18/2010 21:31 EDT 15 mg pantoprazole (PROTONIX) tablet 40 mg 40 mg, oral, DAILY, First dose on [place] 04/15/10 at 1730, Until Discontinued, Routine Given 04/20/2010 8:36 EDT 40 mg Given 04/19/2010 8:20 EDT 40 mg Given 04/18/2010 8:38 EDT 40 mg PEG 3350-Electrolytes (MIRALAX) packet 17 g 17 g, oral, 2 TIMES DAILY, First dose on Mon04/19/10 at 0900, Until Discontinued, Routine Given 04/20/2010 8:36 EDT 17 g Given 04/19/2010 20:47 EDT 17 g Given 04/19/2010 8:20 EDT 17 g pregabalin (LYRICA) capsule 25 mg 25 mg, oral, 3 TIMES DAILY, First dose on [place] 04/15/10 at 2100, Until Discontinued, Routine Given 04/20/2010 14:47 EDT 2 5 mg Given 04/20/2010 8:36 EDT 25 mg Given 04/19/2010 20:51 EDT 25 mg pregabalin (LYRICA) capsule 75 mg 75 mg, oral, PRE-OP ONCE, 1 dose, On [place] 04/15/10 at 1030, Routine, Pre-Op DOS Rx Approved Given 04/15/2010 11:05 EDT 75 mg senna (SENOKOT) tablet 2 Tab 2 Tablet, oral, DAILY, First dose on [place] 04/15/10 at 1715, Until Discontinued, Routine, On Unit Given 04/20/2010 8:36 EDT 2 Tablets Given 04/19/2010 8:20 EDT 2 Tablets Given 04/18/2010 8:38 EDT 2 Tablets sodium chloride 0.9 % 500 mL BOLUS 500 mL, intravenous, NOW X1, 1 dose, On [place] 04/15/10 at 1715, Routine Given 04/15/2010 17:00 EDT 500 mL sodium chloride 0.9 % 500 mL BOLUS 500 mL, intravenous, NOW X1, 1 dose, On Mon04/16/10 at 0330, Routine Given 04/16/2010 3:30 EDT 500 mL trazodone (DESYREL) tablet 50-100 mg 50-100 mg, oral, AT BEDTIME PRN, Starting on Mon04/15/10 at 1654, Until Mon04/20/10 at 1839, Sleep, Routine Given 04/16/2010 21:31 EDT 100 mg vancomycin (VANCOCIN) 1,250 mg in dextrose (D5W) 5% 250 mL IVPB 1,250 mg (15 mg/kg ? 90.7 kg), intravenous, Administer over 75 Minutes, EVERY 12 HOURS, 2 doses, First dose on Mon04/15/10 at 1730, Last dose on Mon04/16/10 at 0530, Routine, On Unit Given 04/16/2010 5:33 EDT 1,250 mg Given 04/15/2010 17:36 EDT 1,250 mg zinc sulfate (ZINCATE) capsule 220 mg 220 mg, oral, AT BEDTIME, First dose on Mon04/15/10 at 2100, Until Discontinued, Routine, On Unit Given 04/19/2010 20:51 EDT 220 mg Given 04/18/2010 21:25 EDT 220 mg Given 04/17/2010 20:33 EDT 220 mg documented in this encounter Discontinued Medications Medication Sig Discontinue Reason Start Date End Da te oxycodone (ROXICODONE) 5 mg immediate release tablet Take 5 mg by mouth every 4 hours as needed for Pain. 04/20/2010 pregabalin (LYRICA) 25 mg capsuleIndications:Fibro myalgia,Osteoarthritis,O besity Take 1 Cap by mouth 3 times daily. 03/10/2010 04/20/2010 documented as of this encounter Historical Medications * This list may reflect changes made after this encounter. Medication Sig Dispensed Refills Start Date End Date senna (SENOKOT) 8.6 mg tablet Take 2 Tabs by mouth daily. 04/20/2010 06/14/2010 PEG 3350-Electrolytes (MIRALAX) 17 gram packet Take 17 g by mouth as needed. 09/27/2010 10/14/2010 docusate sodium (COLACE) 100 mg capsule Take 2 Caps by mouth 2 times daily. 04/20/2010 09/27/2010 acetaminophen (TYLENOL) 650 mg tablet Take 1 Tab by mouth every 4 hours as needed for Pain. 04/20/2010 06/14/2013 FOSINOPRIL SODIUM (MONOPRIL ORAL) Take 20 mg by mouth 2 times daily. Pt not sure of dose 06/22/2010 02/25/2011 added in this encounter Active and Recently Administered Medications Times are shown in EDT. Scheduled Medication Order 04/18/2010 04/19/2010 04/20/2010 albuterol (PROVENTIL HFA, VENTOLIN HFA) inhaler 2 Puff (CANCELED) 2 Puff, inhalation, 4 TIMES DAILY, First dose on 04/18/10 at 0915, Until Discontinued, Routine 1314 (Given - Provider: Félix Brooke)1700 (Given - Provider: Ofelia Malone) albuterol (PROVENTIL) 2.5 mg /3 mL (0.083 %) nebulizer solution 2.5 mg (CANCELED) 2.5 mg, nebulization, EVERY 6 HOURS, First dose (after last modification) on 04/18/10 at 0600, Until Discontinued, Routine 0601 (Given - Provider: Damián Rodriguez) albuterol (PROVENTIL) 2.5 mg /3 mL (0.083 %) nebulizer solution 2.5 mg (CANCELED) 2.5 mg, nebulization, EVERY 4 HOURS WHILE AWAKE, First dose (after last modification) on 04/18/10 at 1000, Until Discontinued, Routine 0900 (Given - Provider: Félix Brooke) albuterol (PROVENTIL) 2.5 mg /3 mL (0.083 %) nebulizer solution 2.5 mg (CANCELED) 2.5 mg, nebulization, 4 TIMES DAILY - 8,12,17,21, First dose on 04/18/10 at 2100, Until Discontinued, Routine 2100 (Given by Other - Provider: Saba Pool RN - Comment: RT administered per pt) 1017 (Given - Provider: Wale Stearns, RT) albuterol (PROVENTIL) 2.5 mg /3 mL (0.083 %) nebulizer solution 2.5 mg (CANCELED) 2.5 mg, nebulization, 4 TIMES DAILY, First dose on Mon04/19/10 at 1415, Until Discontinued, Routine 172 (Given - Provider: Wale Stearns, RT)2004 (Given - Provider: Cata Sales) 0845 (Given - Provider: Dandy Hall)1200 (Given - Provider: Dandy Hall) ascorbic acid (VITAMIN C) tablet 500 mg (CANCELED) 500 mg, oral, AT BEDTIME, First dose on Mon04/15/10 at 2100, Until Discontinued, Routine, On Unit 2123 (Given - Provider: Saba Pool RN) 2048 (Given - Provider: Saba Pool RN) Calcium-Cholecalciferol (D3) (CALCARB) 600 mg(1,500mg) -200 unit per tablet 1 Tab (CANCELED) 1 Tablet, oral, DAILY, First dose on Mon04/15/10 at 1715, Until Discontinued, Routine 0837 (Given - Provider: Lesley Alberts RN) 08 (Given - Provider: Lesley Alberts RN) 0836 (Given - Provider: Yovana Villa) Cholecalciferol (Vitamin D3) tablet 400 Units (CANCELED) 400 Units, oral, AT BEDTIME, First dose on Mon04/15/10 at 2100, Until Discontinued, Routine, On Unit 2123 (Given - Provider: Saba Pool RN) 2048 (Given - Provider: Saba Pool RN) docusate sodium (COLACE) capsule 200 mg 200 mg, oral, 2 TIMES DAILY, First dose on Mon04/15/10 at 2100, Until Discontinued, Routine, On Unit 0838 (Given - Provider: Lesley Alberts RN)2123 (Given - Provider: Saba Pool RN) 08 (Given - Provider: Lesley Alberts RN)2048 (Given - Provider: Saba Pool RN) 0836 (Given - Provider: Yovana Villa) duloxetine (CYMBALTA) capsule 30 mg (CANCELED) 30 mg, oral, 2 TIMES DAILY, First dose (after last modification) on Mon04/15/10 at 2100, Until Discontinued, Routine 0838 (Given - Provider: Lesley Alberts RN)2123 (Given - Provider: Saba Pool RN) 819 (Given - Provider: Lesley Alberts RN)2050 (Given - Provider: Saba Pool RN) 0836 (Given - Provider: Yovana Villa) enoxaparin (LOVENOX) injection 30 mg 30 mg, subcutaneous, EVERY 12 HOURS, First dose on Mon04/16/10 at 0900, Until Discontinued, Routine, On Unit 0838 (Given - Provider: Lesley Alberts RN)2123 (Given - Provider: Saba Pool RN) 819 (Given - Provider: Lesley Alberts RN)2052 (Given - Provider: Saba Pool RN) 0836 (Given - Provider: Yovana Villa) fluticasone-salmeterol (ADVAIR) 500-50 mcg/Dose diskus inhaler 1 Puff (CANCELED) 1 Puff, inhalation, 2 TIMES DAILY, First dose (after last modification) on Mon04/15/10 at 2100, Until Discontinued, Routine 0838 (Given - Provider: Lesley Alberts RN)2123 (Given - Provider: Saba Pool RN) 819 (Given - Provider: Lesley Alberts RN)2017 (Given - Provider: Cata Sales) 0836 (Given - Provider: Yovana Villa) fosinopril (MONOPRIL) tablet 20 mg (CANCELED) 20 mg, oral, DAILY, First dose on Mon04/15/10 at 1715, Until Discontinued, Routine 0838 (Given - Provider: Lesley Alberts RN) 0820 (Given - Provider: Lesley Alberts RN) 0836 (Given - Provider: Yovana Villa) hydroxychloroquine (PLAQUENIL) tablet 200 mg (COMPLETED) 200 mg, oral, 2 TIMES DAILY, 6 doses, First dose on [place] 04/15/10 at 2100, Last dose on Mon04/18/10 at 0900, Routine 0838 (Given - Provider: Lesley Alberts RN) ketoconazole (NIZORAL) 2 % cream (CANCELED) topical (top), DAILY, First dose on [place] 04/15/10 at 1715, Until Discontinued 0838 (Given - Provider: Lesley Alberts RN) 0820 (Given - Provider: Lesley Alberts RN) 0836 (Given - Provider: Yovana Villa) loratadine (CLARITIN) tablet 10 mg (CANCELED) 10 mg, oral, DAILY, First dose on [place] 04/15/10 at 1715, Until Discontinued, Routine 0838 (Given - Provider: Lesley Alberts RN) 0820 (Given - Provider: Lesley Alberts RN) 0836 (Given - Provider: Yovana Villa) lubiprostone (AMITIZA) capsule 24 mcg (CANCELED) 24 mcg, oral, 2 TIMES DAILY WITH BREAKFAST & DINNER, First dose on [place] 04/15/10 at 1715, Until Discontinued, Routine 0837 (Given - Provider: Lesley Alberts RN)1834 (Given - Provider: Lesley Alberts RN - Comment: patient ordered dinner late, administered with dinner.) 0820 (Given - Provider: Lesley Alberts RN)1600 (Given - Provider: Lesley Alberts RN) 0836 (Given - Provider: Yovana Villa) metoprolol (LOPRESSOR) tablet 25 mg (CANCELED) 25 mg, oral, 2 TIMES DAILY, First dose on Shirley 04/15/10 at 2100, Until Discontinued, Routine 0838 (Hold - Provider: Lesley Alberts RN - Reason: Other - Comment: Low BP Trend, will hold for now, as administered Morphine ERT. Will recheck BP in afternoon.)2124 (Not Given - Provider: Saba Pool RN - Reason: Order parameters not met) 819 (Given - Provider: Lesley Alberts RN)2052 (Given - Provider: Saba Pool RN) 0836 (Given - Provider: Yovana Villa) montelukast (SINGULAIR) tablet 10 mg (CANCELED) 10 mg, oral, AT BEDTIME, First dose on [place] 04/15/10 at 2100, Until Discontinued, Routine 2124 (Given - Provider: Saba Pool RN) 2050 (Given - Provider: Saba Pool RN) morphine (MS CONTIN) CR tablet 15 mg (CANCELED) 15 mg, oral, EVERY 12 HOURS, First dose on Mon04/16/10 at 2100, Until Discontinued, Routine 0838 (Given - Provider: Lesley Alberts RN)2124 (Given - Provider: Saba Pool RN) 08 (Hold - Provider: Lesley Alberts RN - Reason: Other - Comment: pinpoint pupils, O2 desat to 86% on RA.) Multivitamins with Minerals tablet 1 Tab (CANCELED) 1 Tablet, oral, AT BEDTIME, First dose on [place] 04/15/10 at 2100, Until Discontinued, Routine, On Unit 2124 (Given - Provider: Saba Pool RN) 2050 (Given - Provider: Saba Pool RN) pantoprazole (PROTONIX) tablet 40 mg (CANCELED) 40 mg, oral, DAILY, First dose on Mon04/15/10 at 1730, Until Discontinued, Routine 0838 (Given - Provider: eLsley Alberts RN) 0820 (Given - Provider: Lesley Alberts RN) 0836 (Given - Provider: Yovana Villa) PEG 3350-Electrolytes (MIRALAX) packet 17 g 17 g, oral, 2 TIMES DAILY, First dose on Mon04/19/10 at 0900, Until Discontinued, Routine 0820 (Given - Provider: Lesley Alberts RN)2046 (Given - Provider: Saba Pool RN) 0836 (Given - Provider: Yovana Villa) pregabalin (LYRICA) capsule 25 mg (CANCELED) 25 mg, oral, 3 TIMES DAILY, First dose on Mon04/15/10 at 2100, Until Discontinued, Routine 0838 (Given - Provider: Lesley Alberts RN)1500 (Given - Provider: Lesley Alberts RN)2124 (Given - Provider: Saba Pool RN) 0820 (Given - Provider: Lesley Alberts RN)1600 (Given - Provider: Lesley Alberts RN)2050 (Given - Provider: Saba Pool RN) 0836 (Given - Provider: Yovana Villa)1447 (Given - Provider: Yovana Villa) senna (SENOKOT) tablet 2 Tab 2 Tablet, oral, DAILY, First dose on [place] 04/15/10 at 1715, Until Discontinued, Routine, On Unit 0838 (Given - Provider: Lesley Alberts RN) 0820 (Given - Provider: Lesley Alberts RN) 0836 (Given - Provider: Yovana Villa) zinc sulfate (ZINCATE) capsule 220 mg (CANCELED) 220 mg, oral, AT BEDTIME, First dose on [place] 04/15/10 at 2100, Until Discontinued, Routine, On Unit 2125 (Given - Provider: Saba Pool RN) 2050 (Given - Provider: Saba Pool RN) PRN Medication Order 04/18/2010 04/19/2010 04/20/2010 acetaminophen (TYLENOL) tablet 650 mg 650 mg, oral, EVERY 4 HOURS PRN, Starting on [place] 04/15/10 at 1654, Until 04/20/10 at 1839, Pain, Routine, On Unit 0056 (Given - Provider: Sandra Keith RN - Comment: headache)0836 (Given - Provider: Lesley Alberts RN)1235 (Given - Provider: Lesley Alberts RN)1640 (Given - Provider: Lesley Alberts RN)2131 (Given - Provider: Saba Pool RN) 0544 (Given - Provider: Saba Pool RN)1200 (Given - Provider: Lesley Alberts RN)1750 (Given - Provider: Lesley Alberts RN) 0041 (Given - Provider: Saba Pool RN)0522 (Given - Provider: Saba Pool RN)1039 (Given - Provider: Yovana Villa)1448 (Given - Provider: Yovana Villa) albuterol (PROVENTIL HFA, VENTOLIN HFA) inhaler 2 Puff (CANCELED) 2 Puff, inhalation, EVERY 6 HOURS PRN, Starting on 04/18/10 at 1313, Until 04/18/10 at 1845, Wheezing, Routine 1840 (Given - Provider: Ofelia Malone) albuterol (PROVENTIL) 2.5 mg /3 mL (0.083 %) nebulizer solution 2.5 mg (CANCELED) 2.5 mg, nebulization, EVERY 4 HOURS PRN, Starting on 04/17/10 at 2344, Until Mon04/20/10 at 1839, Wheezing, Routine 2306 (Given - Provider: Ofelia Malone) bisacodyl (DULCOLAX) suppository 10 mg (COMPLETED) 10 mg, rectal, AT BEDTIME PRN, 1 dose, Starting on 04/17/10 at 2100, Until Mon04/19/10 at 0459, Constipation, Routine, On Unit 0459 (Given - Provider: Saba Pool RN) methocarbamol (ROBAXIN) tablet 500 mg 500 mg, oral, EVERY 6 HOURS PRN, Starting on Mon04/19/10 at 0901, Until Mon04/20/10 at 1839, muscle spasms, Routine, On Unit 1330 (Given - Provider: Lesley Alberts RN) 0840 (Given - Provider: Yovana Villa)1448 (Given - Provider: Yovana Villa) methocarbamol (ROBAXIN) tablet 500-1,000 mg (CANCELED) 500-1,000 mg, oral, EVERY 6 HOURS PRN, Starting on [place] 04/15/10 at 1408, Until Mon04/19/10 at 0903, muscle spasms, Routine, On Unit 0836 (Given - Provider: Lesley Alberts RN)1640 (Given - Provider: Lesley Alberts RN) 0327 (Canceled Entry - Provider: Saba Pool RN) oxycodone (ROXICODONE) immediate release tablet 5-15 mg 5-15 mg, oral, EVERY 3 HOURS PRN, Starting on 04/19/10 at 0902, Until Tu04/20/10 at 1839, Pain, Routine 1200 (Given - Provider: Lesley Alberts RN)1750 (Given - Provider: Lesley Alberts RN)2048 (Given - Provider: Saba Pool RN) 0040 (Given - Provider: Saba Pool RN)0521 (Given - Provider: Saba Pool RN)0840 (Given - Provider: Yovana Villa)1144 (Given - Provider: Yovana Villa)1448 (Given - Provider: Yovana Villa) oxycodone (ROXICODONE) immediate release tablet 5-20 mg (CANCELED) 5-20 mg, oral, EVERY 3 HOURS PRN, Starting on Mon04/16/10 at 1200, Until Mon04/19/10 at 0903, Pain, Routine 0311 (Given - Provider: Sandra Keith RN)0654 (Given - Provider: Sandra Keith RN)0951 (Given - Provider: Lesley Alberts RN)1236 (Given - Provider: Lesley Alberts RN)1824 (Given - Provider: Lesley Alberts RN)2131 (Given - Provider: Saba Pool RN) 0106 (Given - Provider: Saba Pool RN)0543 (Given - Provider: Saba Pool RN) documented in this encounter Orders Medications Ordered That Max ht Not Have Been Administered Count Last Ordered Date First Ordered Date magnesium hydroxide (MILK OF MAGNESIA) 400 mg/5 mL suspension 30 mL 1 04/18/2010 albuterol (ACCUNEB) nebulize r solution 0.63 mg 3 04/17/2010 04/15/2010 albuterol-ipratropium (DUO-N EB) 0.5-2.5 mg/3 mL nebulizer solution 1 04/17/2010 albuterol (PROVENTIL, VENTOL IN) 90 mcg/Actuation inhaler 2 Puff 2 04/15/2010 atropine 0.1 mg/mL 10 mL syringe 0.5 mg 1 0 04/15/2010 duloxetine (CYMBALTA) capsule 20 mg 1 04/15 fentanyl citrate (PF) 50 mcg /mL injection 25-100 mcg 1 04/15/2010 fluticasone-salmeterol (ADVA IR) 500-50 mcg/Dose diskus inhaler 1 Puff 1 04/15/2010 lorazepam (ATIVAN) tablet 0.5 mg 2 04/15/20 10 meperidine (PF) (DEMEROL) 25 mg/0.5 mL injection 12.5 mg 1 04/15/2010 morphine injection 1 mg 1 04/15/2010 multivitamin capsule 1 Cap 1 04/15/2010 naloxone (NARCAN) injection 0.2 mg 1 2009 omeprazole (PRILOSEC) capsule 20 mg 1 04/15 ondansetron (PF) (ZOFRAN) injection 2-4 mg 1 04/15/2010 ondansetron (PF) (ZOFRAN) injection 4 mg 1 04/15/2010 Diet Count Last Ordered Date First Orde red Date DIET CARDIAC 1 04/15/2010 Nursing Count Last Ordered Date First Orde red Date INSERT HAYWOOD CATHETER 1 04/15/2010 INSERT PERIPHERAL IV 1 04/15/[address] SEQUENTIAL COMPRESSION DEVICE 1 04/15 PT Count Last Ordered Date First Orde red Date PT EVALUATION AND TREAT 2 04/15/2010 Respiratory Care Count Last Ordered Date First Ordered Date DRY POWDERED INHALER 2 04/20/2010 010 NEBULIZER TX INTERMITTENT 8 04/20/2010 METERED DOSE INHALER 1 04/18/2010 IV Count Last Ordered Date First Orde red Date IV REQUEST 3 04/18/2010 04/16/2010 Admission Count Last Ordered Date First Orde red Date ADMIT TO INPATIENT 2 04/15/2010 NOTIFY PPS PATIENT ARRIVAL IN PACU 1 2009 NOTIFY PPS PATIENT TRANSFERRED OUT OF PACU 1 04/15/2010 PPS NOTIFICATION OF PATIENT ARRIVAL ON UNIT 2 04/15/2010 Discharge Count Last Ordered Date First Orde red Date DISCHARGE PATIENT 1 04/20/2010 Precaution Count Last Ordered Date First Orde red Date TOTAL KNEE PRECAUTIONS 1 04/15/2010 Consult to Social Work Count Last Ordered Date First Ordered Date CONSULT SOCIAL WORK 1 04/15/2010 documented in this encounter Care Teams Welt Rander Relationship Specialty Start Date End Date Remedios Mehta MD [address] [place] [phone] PCP - General 02/19/09 01/04/15 documented as of this encounter
--- OUTSIDE RECORDS SUMMARY | 2024-06-24 02:25 | XMS_ITS | Encounter Summary ---
Author Organization [facility] Address [address] [place] [address] Care Team Providers Care Custom Leather Products Maker Name Role Phone Remedios Mehta MD Primary Care Provider + [phone] Encounter Details Date Type Department Care Team (Latest Contact Info) Description 03/02/2010 12:07 EDT - 03/02/2010 21:31 EDT Hospital Encounter [facility] - [address] [address] Jakub Black MD [address] [place] [phone] Discharge Disposition: Home or Self Care Social [...] - - Weight 98 kg (216 lb) 02/23/2010 1416 EDT Height 152.4 cm (5') 02/23/2010 1416 EDT Body Mass Index 42.18 02/23/2010 1416 EDT documented in this encounter Medications at Time [...] times daily. 1 Each 5 02/03/2010 01/14/2011 hydroxychloroquine (PLAQUENIL) 200 mg tabletIndications:Arth ropathy Take [...] 0.5 mg by mouth as needed. 03/05/2012 omeprazole (PRILOSEC) 20 mg capsule Take 1 Cap by mouth 2 times daily. dose increase 60 Cap 3 02/03/2010 07/12/2011 PREGABALIN (LYRICA ORAL) Take 1 Tab by [...] documented in this encounter Progress Notes * Tamara Frazier RN - 02/23/2010 1411 EDT Cherelle Husain has been instructed as follows regarding medication administration for the day of the scheduled procedure. Date of Surgery: 03/02/10 Instructions for Taking Medications Day of Surgery Medication Last Dose Hold DOS Take DOS ketoconazole (NIZORAL) 2 % cream Yes loratadine (CLARITIN) 10 mg tablet Yes hydroxychloroquine (PLAQUENIL) 200 mg tablet Yes fluticasone-salmeterol (ADVAIR DISKUS) 500-50 mcg/Dose diskus inhaler Yes omeprazole (PRILOSEC) 20 mg capsule Yes lorazepam (ATIVAN) 0.5 mg Tab Yes PREGABALIN (LYRICA ORAL) Yes lubiprostone (AMITIZA) 24 mcg capsule Yes(headache if taken without food) zafirlukast (ACCOLATE) 20 mg tablet Yes trazodone (DESYREL) 50 mg tablet Yes albuterol (PROVENTIL, VENTOLIN) 90 mcg/Actuation inhaler Yes CALCIUM CARBONATE/VITAMIN D3 (CALCIUM 600 WITH VITAMIN D3 ORAL) Yes MULTIVITAMINS (MULTIVITAMIN ORAL) 02/23/10 duloxetine (CYMBALTA) 20 mg capsule Yes albuterol (ACCUNEB) 0.63 mg/3 mL nebulizer solution Yes albuterol-ipratropium (DUONEB) 0.5-2.5 mg/3 mL nebulizer solution Yesif needed documented in this encounter H&P Notes * Inpatient, Physician - 03/05/2010 1417 EDT documented in this encounter Procedure Notes * Inpatient, Physician - 03/05/2010 1417 EDTAssociated Order(s): ORDERS - SCANNED documented in this encounter Nursing Notes * Inpatient, Physician - 03/04/2010 0808 EDT documented in this encounter OR Notes * Anesthesia Procedure Notes - Inpatient, Physician - 03/05/2010 1417 EDT * Anesthesia Preprocedure Evaluation - Inpatient, Physician - 03/05/2010 1417 EDT * OR PreOp - Inpatient, Physician - 03/05/2010 1417 EDT * OR PreOp - Inpatient, Physician - 03/05/2010 1417 EDT * OR Surgeon - Jakub Black MD - 03/02/2010 0000 EDT OPERATIVE REPORT SERVICE DATE: 03/02/2010 SURGEON: Jakub Black MD AIRPLANE REFUELER: MARIA Sharif (No resident available.) PREOPERATIVE DIAGNOSIS: Left carpal tunnel syndrome. POSTOPERATIVE DIAGNOSIS: Left carpal tunnel syndrome. PROCEDURE: Left endoscopic carpal tunnel release. ANESTHESIA: [place] block. COMPLICATIONS: None. NARRATIVE: The patient was put under [place] block anesthesia to her left arm. The left arm was then prepped and draped in the usual fashion. We made a transverse incision at the level of the wrist crease between the palmaris longus and the FCU tendon. The incision was carried down to soft tissue. Thedistal forearm fascia was then easily visualized and incised in a distally based fashion. This gaveus access to the undersurface of the flexor retinaculum. Using a tenosynovial elevator and then dilator, the carpal tunnel was then prepared. We made sure we were in line with the 4th ray and radial to the hook of the hamate. The endoscopic carpal tunnel release system was then inserted into the carpal tunnel. Excellent visualization of the undersurface of the flexor retinaculum was obtained. We released the flexor retinaculum starting distally and moving on proximally. The retinaculum was completely released until we could see the two edges of the retinaculum well by at least the width of the instrumentation. At this point, the instrumentation was removed from the carpal tunnel. Under direct vision, we made sure that the most proximal portion of the flexor retinaculum was completely released, which was the case. Also under direct vision, we released the distal forearm fascia to make sure there was no remaining compression over the median nerve. At this point, the wound was i rrigated thoroughly. It was closed with 4-0 nylon in separate vertical mattress stitches. Marcaine was infiltrated in the wound for postoperative pain management. Dry dressing was applied over the wound. The intervention was well tolerated. ESTIMATED BLOOD LOSS: Minimal. TOURNIQUET TIME: 23 minutes. The patient was transferred in recovery room in good condition and there was no complication. Unless otherwise noted, there were no complications, no blood loss, no cultures obtained, no specimens removed, and no drains retained. Dictated by: Jakub Black MD Jakub Black MD 10 45 AM / [facility] Confirmation: [id number] Dictation ID: [id number] documented in this encounter Miscellaneous Notes * Scanned Note-Null - Inpatient, Physician - 03/05/2010 1417 EDT * Scanned Note-Null - Inpatient, Physician - 03/05/2010 1417 EDT * Scanned Note-Null - Inpatient, Physician - 03/05/2010 1417 EDT * Scanned Note-Null - Inpatient, Physician - 03/05/2010 1417 EDT * Scanned Note-Null - Inpatient, Physician - 03/05/2010 1417 EDT * Scanned Note-Null - Inpatient, Physician - 03/05/2010 1417 EDT * Brief Op Note - Inpatient, Physician - 03/05/2010 1417 EDT documented in this encounter Plan of Treatment Not on file documented as of this encounter Procedures Procedure Name Priority Date/Time Associated Diagnosis Comments ORDERS - SCANNED 03/05/2010 14:1 7 EDT documented in this encounter Results * ORDERS - SCANNED (03/05/2010 14:17 EDT) 03/05/2010 14:1 7 EDT Narrative Procedure Note Inpatient, Physician - 03/05/2010 14:17 EDT Physician Inpatient MD ADMISSION ORDERAB LES documented in this encounter Visit Diagnoses Not on filedocumented in this encounter Care Teams Custom Leather Products Maker Relationship Specialty Start Date End Date Remedios Mehta MD [address] [place] [phone] PCP - General 02/19/09 01/04/15 documented as of this encounter
--- OUTSIDE RECORDS SUMMARY | 2024-06-24 02:25 | XMS_ITS | Encounter Summary ---
Author Organization [facility] Address [address] [place] [address] Care Team Providers Care Track Worker Name Role Phone Remedios Mehta MD Primary Care Provider [phone] Encounter Details Date Type Department Care Team (Late st Contact Info) Description 01/20/2010 Abstract [facility] - [address] [address] José Miguel Davidson CTS (carpal tunnel syndrome) Social History Tobacco Use Types Packs/Day Years [...] as of this encounter Visit Diagnoses Diagnosis CTS (carpal tunnel syndrome) Carpal tunnel syndrome documented in this encounter Care Teams Track Worker Relationship Specialty Start Date End Date Remedios Mehta MD [address] [place] [phone] PCP - General 02/19/09 01/04/15 documented as of this encounter
--- OUTSIDE RECORDS SUMMARY | 2024-06-24 02:25 | XMS_ITS | Encounter Summary ---
Author Organization [facility] Address [address] [place] [address] Care Team Providers Care Sole Conforming Machine Operator Name Role Phone Remedios Mehta MD Primary Care Provider + [phone] Encounter Details Date Type Department Care Team (Late st Contact Info) Description 01/25/2010 Orders Only [facility] Medicine [facility] [place] [address] [place] [address] José Miguel Davidson Knee joint pain (Primary Dx) Social History Tobacco Use [...] Diagnosis Comments KNEE 4 OR MORE VIEWS Routine 01/26/2010 15:45 EDT Knee joint pain KNEES 3 VIEWS Routine 01/26/2010 15:45 EDT Knee joint pain documented in this encounter Results * KNEES 3 VIEWS (01/26/2010 15:45 EDT) Anatomical Region Laterality Modality Other 01/26/2010 15:4 5 EDT 01/26/2010 17:27 EDT Narrative 01/26/2010 17:27 EDT Four views of the right knee and 3 views left knee: ?? January 26, 2010 03:45:00 PM Signs and Symptoms/Comments: ??Right knee pain, left for comparison Two osteochondral bodies and measuring 3 mm and 4 x 5 mm are identified at the posterior aspect of the central portion of the tibial plateau. There is mild narrowing of the medial compartment of the tibiofemoral joint with minimal productive changes. The right patellofemoral joint is unremarkable. The left knee demonstrates a mild narrowing of the medial compartment of the tibiofemoral joint with some mild productive changes at the periphery of both lateral and medial tibiofemoral joint. Minimal productive change is also present in the patellofemoral joint. There is some right knee joint effusion decompressing the suprapatellar recess. Impression: Two osteochondral bodies at the posterior aspect of the right knee. Findings may be secondary to prior cartilage injury, medial meniscal tear or posterior cruciate ligament injury. Right knee joint effusion. Minimal degenerative changes in both knees, in the tibiofemoral joints and in the left patellofemoral joint. Procedure Note 01/26/2010 Four views of the right knee and 3 views left knee: January 26, 2010 03:45:00 PM Signs and Symptoms/Comments: Right knee pain, left for comparison Two osteochondral bodies and measuring 3 mm and 4 x 5 mm are identified at the posterior aspect of the central portion of the tibial plateau. There is mild narrowing of the medial compartment of the tibiofemoral joint with minimal productive changes. The right patellofemoral joint is unremarkable. The left knee demonstrates a mild narrowing of the medial compartment of the tibiofemoral joint with some mild productive changes at the periphery of both lateral and medial tibiofemoral joint. Minimal productive change is also present in the patellofemoral joint. There is some right knee joint effusion decompressing the suprapatellar recess. Impression: Two osteochondral bodies at the posterior aspect of the right knee. Findings may be secondary to prior cartilage injury, medial meniscal tear or posterior cruciate ligament injury. Right knee joint effusion. Minimal degenerative changes in both knees, in the tibiofemoral joints and in the left patellofemoral joint. José Miguel Davidson IMG DIAGNOSTIC IMAGI NG ORDERABLES * KNEE 4 OR MORE VIEWS (01/26/2010 15:45 EDT) Anatomical Region Laterality Modality Other 01/26/2010 15:4 5 EDT 01/26/2010 17:27 EDT Narrative 01/26/2010 17:27 EDT Four views of the right knee and 3 views left knee: ?? January 26, 2010 03:45:00 PM Signs and Symptoms/Comments: ??Right knee pain, left for comparison Two osteochondral bodies and measuring 3 mm and 4 x 5 mm are identified at the posterior aspect of the central portion of the tibial plateau. There is mild narrowing of the medial compartment of the tibiofemoral joint with minimal productive changes. The right patellofemoral joint is unremarkable. The left knee demonstrates a mild narrowing of the medial compartment of the tibiofemoral joint with some mild productive changes at the periphery of both lateral and medial tibiofemoral joint. Minimal productive change is also present in the patellofemoral joint. There is some right knee joint effusion decompressing the suprapatellar recess. Impression: Two osteochondral bodies at the posterior aspect of the right knee. Findings may be secondary to prior cartilage injury, medial meniscal tear or posterior cruciate ligament injury. Right knee joint effusion. Minimal degenerative changes in both knees, in the tibiofemoral joints and in the left patellofemoral joint. Procedure Note 01/26/2010 Four views of the right knee and 3 views left knee: January 26, 2010 03:45:00 PM Signs and Symptoms/Comments: Right knee pain, left for comparison Two osteochondral bodies and measuring 3 mm and 4 x 5 mm are identified at the posterior aspect of the central portion of the tibial plateau. There is mild narrowing of the medial compartment of the tibiofemoral joint with minimal productive changes. The right patellofemoral joint is unremarkable. The left knee demonstrates a mild narrowing of the medial compartment of the tibiofemoral joint with some mild productive changes at the periphery of both lateral and medial tibiofemoral joint. Minimal productive change is also present in the patellofemoral joint. There is some right knee joint effusion decompressing the suprapatellar recess. Impression: Two osteochondral bodies at the posterior aspect of the right knee. Findings may be secondary to prior cartilage injury, medial meniscal tear or posterior cruciate ligament injury. Right knee joint effusion. Minimal degenerative changes in both knees, in the tibiofemoral joints and in the left patellofemoral joint. José Miguel MINER DIAGNOSTIC IMAGI NG ORDERABLES documented in this encounter Visit Diagnoses Diagnosis Knee joint pain- Primary Pain in joint, lower leg documented in this encounter Care Teams Sole Conforming Machine Operator Relationship Specialty Start Date End Date Remedios Mehta MD [address] [place] [id number] PCP - General 02/19/09 01/04/15 documented as of this encounter
--- OUTSIDE RECORDS SUMMARY | 2024-06-24 02:25 | XMS_ITS | Encounter Summary ---
Author Organization [facility] Address [address] [place] [address] Care Team Providers Care Coffin Maker Name Role Phone Remedios Mehta MD Primary Care Provider [phone] Encounter Details Date Type Department Care Team (Late st Contact Info) Description 09/18/2009 Abstract [facility] Medicine [address] [id number] Remedios Mehta MD [address] [place] [id number] Social History Tobacco Use Types Packs/Day [...] mg tablet Take 20 mg by mouth daily. 09/18/2009 documented as of this encounter Care Teams Coffin Maker Relationship Specialty Start Date End Date Remedios Mehta MD [address] [place] [phone] PCP - General 02/19/09 01/04/15 documented as of this encounter
--- OUTSIDE RECORDS SUMMARY | 2024-06-24 02:25 | XMS_ITS | Encounter Summary ---
Author Organization [facility] Address [address] [place] [address] Care Team Providers Care Dental Professional Name Role Phone Remedios Mehta MD Primary Care Provider [phone] Encounter Details Date Type Department Care Team (Latest Contact Info) Description 03/25/2010 12:54 EDT - 03/25/2010 14:30 EDT Hospital Encounter [facility] Hematology & Oncology - [facility] [address] [place], [place] [id number] Joey Preciado [address] [place] [phone] Discharge Disposition: Auto Discharge Social History Tobacco [...] for Pain. 80 Tab 0 04/20/2010 04/29/2010 oxycodone (ROXICODONE) 5 mg immediate release tablet Take 5 mg by mouth every 4 hours as needed for Pain. 04/20/2010 PEG 3350-Electrolytes (MIRALAX) 17 gram packet Take 17 g by mouth as needed. 09/27/2010 10/14/2010 pregabalin (LYRICA) 25 mg capsuleIndications:F ibromyalgia,Osteoart hritis,Obesity Take 1 Cap by mouth 3 times daily. 90 Cap 5 03/10/2010 04/20/2010 senna (SENOKOT) 8.6 mg tablet Take 2 Tabs by mouth daily. 04/20/2010 06/14/2010 trazodone (DESYREL) 50 mg tablet Take 1-2 Tabs by mouth at bedtime as needed for Sleep. 06/28/2010 zafirlukast (ACCOLATE) 20 mg tablet Take 20 mg by mouth 2 times daily. 01/14/2011 documented as of this encounter Discharge Disposition Disposition Code Departure Means Destination Auto Discharge Home documented in this encounter Consult Notes * Joey Preciado NP - 03/25/2010 0000 EDT DIVISION OF HEMATOLOGY / ONCOLOGY CONSULTATION - 03/25/2010 REASON FOR VISIT: Asked to provide consultation by Dr Yonathan Moreland regarding management of hypercoagulable syndrome in the setting of upcoming elective knee surgery. Ms Husain with a distant historyof deep vein thrombosis in the setting of . HISTORY OF PRESENT ILLNESS: Ms Husain is a 50-year-old female with a past medical history significant for fibromyalgia, obesity, asthma, depression/anxiety, GERD. She has a distant history of thrombosis with her second . This occurred in the third trimester in 1982. Ms Husain was treatedwith what sounds like a heparin drip. She does not remember being treated for any length of time with anticoagulation afterwards. I have no records of either the ultrasound report or her length of treatment on this. Of interesting note Ms Husain's 28-year-old daughter has a history of 3 miscarriages, one with a loss of child at 7 months. She experienced a DVT in the seventh month of . This occurred in [place]. She was treated with aspirin alone. Ms Husain's the daughter agreedto talk to me during this afternoon's interview. We spoke on the cellphone. Ms Husain's daughter could not recollect any testing other than being tested for cardiolipin antibodies and that these were undetectable. She did not recall being tested for protein C or S or factor V Leiden. Ms Husain has not had any incidence of thrombosis since this initial one in 1982. The only other indication that Ms Husain that may have had some thrombophilia is she did use hormone replacement therapy between the years of 1999 and 2001. She would occasionally feel some tinglingin her legs, and at that point, she would stop taking it. She never had any other followup medical treatment for this. PAST MEDICAL HISTORY: 1. Hypercoagulable syndrome, right lower extremity DVT in the setting of childbirth. 2. Obesity. 3. Fibromyalgia. 4. Asthma. 5. Depression. 6. Anxiety. 7. GERD. 8. Irritable bowel syndrome. PAST SURGICAL HISTORY: Appendectomy at age 14. [place] tooth extraction at age 29. Carpal tunnel on the right age 33. Carpal tunnel on the left at age 49. OBSTETRIC HISTORY: Number of pregnancies 4. Live births 2. Miscarriage 1 at one month . One elective . Ms Husain took oral contraceptive pills from mid 1970s to 1982. She could not recall the kind. She also took hormone replacement therapy off and on between 1999 and 2001. She stopped taking these when her legs felt funny. HEALTH MAINTENANCE: 1. Mammogram 2008 normal. 2. Colonoscopy 2007 normal. ALLERGIES: The patient denies allergies to food. CURRENT MEDICATIONS: Advair 500/50 twice per day. Accolate 200 mg b.i.d. Saline nasal spray p.r.n. Protonix 40 mg b.i.d. Trazodone 50 mg at bedtime. Plaquenil 200 mg b.i.d. Cymbalta 30 mg b.i.d. Calcium, vitamin D once per day. Albuterol p.r.n. Multivitamin tab once per day. Loratadine once per day. Lyrica daily. Metoprolol 25 mg b.i.d. Lorazepam 0.5 mg p.r.n. 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 Describes her health as good. Exercises by walking and pool therapy. Currently not smoking. Smoked half pack per day for 15 years, quit in 1986. Very infrequent use of alcohol. No illicit drug use. FAMILY HISTORY: The patient's family pedigree is drawn and documented in the chart. The patient has2 children, a son age 30, alive and well; a daughter age 28, history of 3 miscarriages, one at 7 months. Tested in [place] for cardiolipin antibodies, these were negative,treated with aspirin alone. The patient has a brother age 50, history of rectal bleeding, Ms Husain could provide no other details, nonlife-threatening. Patient has a half-sister from her mother's side, age 32, alive andwell. Patient's mother at age 52, complications of alcoholism, cardiovascular disease and diabetes. The patient did not know her father that well. He at 83. He has a history of arterial insufficiency. Ms Husain believes he is on warfarin, but she could provide no other details. The patient's maternal grandfather at age 55, sudden myocardial infarction. The patient's paternal grandmother living to be 94. OBJECTIVE: Temperature today is 36.2, heart rate 72, blood pressure is 112/67, respirations 16. Height 153.5 cm, weight 101.2 kg (BMI 43). In general, a morbidly obese middle-aged female inno apparent distress. ECOG status 0. Head, ears, eyes, nose and throat: The patient is normocephalic. Ocular movements are intact. Sclerae are clear. Neck supple, no lymphadenopathy. Lungs clear to auscultation in all urias. No wheezes, rales or rhonchi. Cardiac: S1, S2 with a regular rate and rhythm. Abdomen soft, nontender, nondistended with positive bowel sounds. No hepatomegaly. No splenomegaly. Lower extremities are without erythema, cyanosis or edema. The right leg has some venous ectasia behind the popliteal area. Also, there is what appears to be a small hematoma in the right thigh, neither erythematic or tender. ASSESSMENT AND PLAN: In reviewing the overall risk for Ms Husain she is a significant surgical risk based on her weight, age, underlying asthma, as well as history of thrombosis. While is a known provoking factor for thrombosis, most women experience without an incidence of thrombosis, indicating that there may be a mild deficiency in protein C or S or factor V Leiden. Of note, Ms Husain's daughter having a history of 3 miscarriages, which would qualify her in the [place] scale for antiphospholipid syndrome. As previously stated, she is being treated for this in [place] Based on Ms Husain's history of -induced thrombosis, and her daughter's history I will draw a thrombosis panel at this time. The results of this panel may affect length of treatment for anticoagulation in the surgical setting. Recommendations are as follows: 1. Day of surgery, before, during and after surgery, Ms Husain should wear pneumatic compression devices. She should also early ambulation as soon as possible. Eight to twelve hours after surgery Kristina should receive Lovenox 30 mg subcutaneous x1 day 1. Day 1 postop she should start Lovenox 30 mg b.i.d. and continue this for a minimum of 30 days. Based on the results of Ms Husain's thrombosis panel, would consider treating her longer depending on what the results show. This could be anywhere from 8 to a total of 12 weeks of anticoagulation. If recommendation is 12 weeks of anticoagulation based on her results, would convert her to warfarin for patient's satisfaction. 2.Education: I reviewed the signs and symptoms of pulmonary embolism and deep vein thrombosis with Ms Husain. I also reviewed the rationale for pursuing treatment and the rationale for aggressive prophylaxis in the setting of surgery. All of her questions were answered to her satisfaction. 3.Health maintenance. Ms Husain was encouraged to continue with her exercise program. She is anxious to get this knee surgery done so that she can increase this. She feels her immobility has increased her weight over the last couple of years. 4.Followup. We will see Ms Husain the week 6 to review the results of her thrombosis panel. I would also like to see Ms Husain approximately 2 to 4 weeks postop to see how her ambulation is coming along. Mr Husain was encouraged to call this office at any time with questions or concerns. Electronically Signed by Joey Preciado APRN 04/17/2010 13:16 Dictated by: Joey Preciado APRN - Joey Preciado APRN A - MFS Job ID: SM Doc ID: [id number] Ext Doc ID: [id number] cc: MD Yonathan El MD Christine H Jones, MD Anya S Koutras, MD documented in this encounter Plan of Treatment Not on file documented as of this encounter Visit Diagnoses Not on filedocumented in this encounter Care Teams Dental Professional Relationship Specialty Start Date End Date Remedios Mehta MD [address] [place] [phone] PCP - General 02/19/09 01/04/15 documented as of this encounter
--- OUTSIDE RECORDS SUMMARY | 2024-06-24 02:25 | XMS_ITS | Encounter Summary ---
Author Organization [facility] Address [address] [place] [address] Care Team Providers Care Supervisor Shuttle Fitting Name Role Phone Remedios Mehta MD Primary Care Provider + [phone] Encounter Details Date Type Department Care Team (Latest Contact Info) Description 03/23/2010 14:31 EDT - 03/23/2010 23:59 EDT Hospital Encounter [facility] [address] [place] [address] Conchita Garza NP [address] [place] [address] Other specified pre-operative examination; Loc osteoarth NOS-l/leg; Pain in joint, lower leg Discharge Disposition: Home or Self Care Social [...] Procedure Name Priority Date/Time Associated Diagnosis Comments PREPARE RED BLOOD CELLS Routine 03/23/2010 16:14 EDT TYPE AND SCREEN Routine 03/23/2010 16:14 EDT URINALYSIS WITH MICROSCOPIC IF POSITIVE Routine 03/23/2010 14:53 EDT Other specified pre-operative examination Loc osteoarth NOS-l/leg Pain in joint, lower leg UA REFLEX Routine 03/23/2010 14:53 EDT URINE CULTURE IF POSITIVE Routine 03/23/2010 14:53 EDT Other specified pre-operative examination Loc osteoarth NOS-l/leg Pain in joint, lower leg COMPLETE BLOOD COUNT AND DIFFERENTIAL Routine 03/23/2010 14:53 EDT Other specified pre-operative examination Loc osteoarth NOS-l/leg Pain in joint, lower leg BASIC METABOLIC PANEL (BMP) Routine 03/23/2010 14:53 EDT Other specified pre-operative examination Loc osteoarth NOS-l/leg Pain in joint, lower leg documented in this encounter Results * TYPE AND SCREEN (03/23/2010 16:14 EDT) ABO AB [facility] Rh Factor Positive [facility] Antibody Screen Negative [facility] Comment:SAMPLE EXPIRES 04/18 AT 2359 03/23/2010 16:1 4 EDT 03/23/2010 16:14 EDT Yonathan Moreland MD BLOOD BANK SANDRA TS Performing Organization Address City/[facility] [address] [facility] Co de Phone Number [facility] [address] [place] [address] * PREPARE RED BLOOD CELLS (03/23/2010 16:14 EDT) Product Code -3 RED BLOOD CELLS,ADENINE- SALINE ADDED,LEUKOCYT ES REDUCED [facility] Donor Number [id number] [facility] Unit ABO AB [facility] Unit Rh POS [facility] Cross Match Interp Compatible [facility] Unit Status Released From [employer] [facility] 03/23/2010 16:1 4 EDT 03/23/2010 16:14 EDT Yonathan Moreland MD BLOOD BANK ORD ERABLES Performing Organization Address City/[facility] [address]/ZIP Co de Phone Number [facility] [address] [place] [address] * UA REFLEX (03/23/2010 14:53 EDT) UA Billing Microscopic not indicated. [facility] 03/23/2010 14:5 3 EDT 03/23/2010 14:55 EDT Conchita Garza NP URINALYSIS ORDERABLE S Performing Organization Address [facility] [address]/[facility] de Phone Number [facility] [address] [place] [address] * CULTURE IF UA POSITIVE (03/23/2010 14:53 EDT) Culture if Indicated Culture not indicated by urinalysis results. [facility] Urine specimen (specimen) 03/23/2010 14:53 EDT 03/23/2010 14:55 EDT Conchita Garza NP MICROBIOLOGY - GENER AL ORDERABLES Performing Organization Address [facility] de Phone Number [facility] [address] [place] [address] * URINALYSIS (03/23/2010 14:53 EDT) Color, UA Yellow [facility] Clarity, UA Clear [facility] Glucose, UA Neg NEG [facility] Bilirubin, UA Neg NEG [facility] Ketones, UA Neg NEG [facility] Specific Orcas, Urine >1.030 1.001 - 1.035 [facility] Blood, UA Neg NEG [facility] pH, UA 6.0 4.6 - 8.0 [facility] Protein, UA Neg NEG [facility] Urobilinogen, UA 0.2 0.2 - 1.0 E.U./dl [facility] Nitrite, UA Neg NEG [facility] Leuk Esterase Neg NEG [facility] Refractometer SG,Urine 1.026 1.001 - 1.035 [facility] Urine specimen (specimen) 03/23/2010 14:53 EDT 03/23/2010 14:55 EDT Conchita Garza NP URINALYSIS ORDERABLE S Performing Organization Address [facility] [address] [facility]/ZIP Co de Phone Number [facility] [address] [place] [address] * BASIC METABOLIC PANEL (03/23/2010 14:53 EDT) Pathologist [facility] Sodium 139 136 - 145 mEq/L [facility] Potassium 4.3 3.5 - 5.0 mEq/L [facility] Chloride 104 96 - 110 mEq/L [facility] CO2 25 24 - 32 mEq/L [facility] BUN 16 10 - 26 mg/dl [facility] Creatinine 0.73 0.7 - 1.5 mg/dl [facility] GFR, Calculated >60 ml/min/1.7 3m2 [facility] Calcium 9.2 8.5 - 10.5 mg/dl [facility] Calculated Calcium 9.5 8.5 - 10.5 mg/dl [facility] Glucose, Serum 98 70 - 100 mg/dl [facility] Fasting? Unknown [facility] Blood specimen (specimen) 03/23/2010 14:53 EDT 03/23/2010 14:54 EDT Conchita Garza NP CHEMISTRY & BLOOD GA S ORDERABLES Performing Organization Address City/[facility] [address]/ZIP Co de Phone Number [facility] [address] [place] [address] * (ABNORMAL) HEMAGRAM AND DIFFERENTIAL (03/23/2010 14:53 EDT) WBC 8.39 4.0 - 12.4 K/cmm [facility] RBC 4.06 3.86 - 5.04 M/cmm [facility] Hemoglobin 12.6 11.6 - 15.2 gm/dl [facility] HCT 36.4 34.9 - 44.4 % [facility] MCV 89 81 - 98 fl [facility] MCH 30.9 26.7 - 33.3 pg [facility] MCHC 34.5 32.1 - 35.9 gm/dl [facility] PLT 400(H) 141 - 320 K/cmm [facility] RDW-CV 13.5 11.7 - 14.6 % [facility] % Neutrophils 52.1 45.5 - 79.7 % [facility] % Lymphocytes 35.6 15.0 - 46.8 % [facility] % Monocytes 7.4 1.8 - 12.0 % [facility] % Eosinophils 3.2 0.6 - 6.9 % [facility] % Basophils 1.7(H) 0.2 - 1.4 % [facility] ABS Neutrophils 4.37 2.20 - 8.85 K/cmm [facility] ABS Lymphs 2.99 1.09 - 3.30 K/cmm [facility] ABS Monocytes 0.62 0.1 - 0.8 K/cmm [facility] ABS Eosinophils 0.26 0.03 - 0.61 K/cmm [facility] ABS Basophils 0.14(H) 0.01 - 0.11 K/cmm [facility] Type of Diff: Automated [facility] Blood specimen (specimen) 03/23/2010 14:53 EDT 03/23/2010 14:54 EDT Conchita Garza TRAFFIC DIRECTOR PACKAGES [employer] DNA PROBE ORDERABLES [facility] [address] [place] [address] documented in this encounter Visit Diagnoses Diagnosis Other specified pre-operative examination Localized osteoarthrosis not specified whether primary or secondary, lower leg Pain in joint, lower leg documented in this encounter Care Teams Supervisor Shuttle Fitting Relationship Specialty Start Date End Date Remedios Mehta MD [address] [place] [phone] PCP - General 02/19/09 01/04/15 documented as of this encounter
--- OUTSIDE RECORDS SUMMARY | 2024-06-24 02:25 | XMS_ITS | Encounter Summary ---
Author Organization [facility] Address [address] [place] [address] Care Team Providers Care Security Guard Dispatcher Name Role Phone Remedios Mehta MD Primary Care Provider Encounter Details Date Type Department Care Team (Late st Contact Info) Description 11/22/2009 Orders Only [facility] Family Medicine [address] [phone] Cathryn Garza, MARIA [address] [place] [address] Dizziness - light-headed; Headache Social History Tobacco Use Types Packs/Day Years Used Date Smoking Tobacco: Never Assessed Sex and Gender Information Value Date Recorded Sex Assigned at Not on file Gender Identity Female 2021 11:19 EDT Sexual Orientation Not on file documented as of this encounter Plan of Treatment Not on file documented as of this encounter Visit Diagnoses Diagnosis Dizziness - light-headed Dizziness and giddiness Headache(784.0) Headache documented in this encounter Care Teams Security Guard Dispatcher Relationship Specialty Start Date End Date Remedios Mehta MD [address] [place] [phone] PCP - General 02/19/09 01/04/15 documented as of this encounter
--- OUTSIDE RECORDS SUMMARY | 2024-06-24 02:25 | XMS_ITS | Encounter Summary ---
Author Organization [facility] Address [address] [place] [address] Care Team Providers Care Pig Iron Loader Name Role Phone Remedios Mehta MD Primary Care Provider [phone] Reason for Visit * Reason Comments Pre-op Exam 03/02/10, vitaly hu surgery on Left wrist/hand Rash rash under both jazmin sts, itchy and painful Encounter Details Date Type Department Care Team (Late st Contact Info) Description 02/17/2010 16:00 EDT Office Visit [address] [phone] Cathryn Garza, MARIA [address] [place], [place] [phone] Rash; Preop examination; Allergic rhinitis; Arthropathy Social History Tobacco Use Types Packs/Day [...] Sign Reading Time Taken Comments Blood Pressure 120/82 02/17/2010 1612 EDT Pulse 76 02/17/2010 1612 EDT Temperature 36.7 ??C (98 ??F) 02/17/2010 1612 EDT Respiratory Rate - - Oxygen Saturation - - Inhaled Oxygen Concentration - - Weight 98.9 kg (218 lb) 02/17/2010 1612 EDT Height 153.7 cm (5' 0.5) 02/17/2010 1612 EDT Body Mass Index 41.87 02/17/2010 1612 EDT documented in this encounter Ordered Prescriptions Prescription Sig Dispensed Refills Start Date End Da te hydroxychloroquine (PLAQUENIL) 200 mg tabletIndications:Arthro magalys Take 1 Tab by mouth 2 times daily. 60 Tab 11 02/17/2010 03/04/2011 loratadine (CLARITIN) 10 mg tabletIndications:Allerg ic rhinitis Take 1 Tab by mouth daily. 30 Tab 11 02/17/2010 06/08/2011 ketoconazole (NIZORAL) 2 % creamIndications:Rash Apply topically daily. Apply to affect area(s) as directed. 1 Tube 1 02/17/2010 04/18/2021 documented in this encounter Progress Notes * Cathryn Garza - 02/17/2010 1632 EDT Subjective: Cherelle Husain is a 49 y.o. female who presents to the office today for a preoperative consultationat the request of Dr. Black, who will perform a Left carpal tunnel release on March 02, 2010 at [facility].Current Complaints: left hand numbness, tingling, and dropping objects. Failure of conservative treatment of NSAIDs, bracing, cortisone injection. Also complains of rash under breasts, worsening, not responding to topical powders, hydrocortisone.Denies new exposures to lotions, soaps, detergents. Mildly pruritic, no pain, drainage. Past Medical History Diagnosis Date ??? Fibromyalgia ??? Obesity ??? Asthma ??? Depression ??? Anxiety ??? GERD (gastroesophageal reflux disease) ??? Fibromyalgia ??? confirmed 1979,1982 2 vaginal deliveries Family History Problem Relation ??? Diabetes Mother ??? High Blood Pressure Father ??? High Cholesterol Father Current outpatient prescriptions Medication Sig Dispense Refill ??? fluticasone-salmeterol (ADVAIR DISKUS) 500-50 mcg/Dose diskus inhaler Inhale 1 Puff as directed2 times daily. 1 Each 5 ??? omeprazole (PRILOSEC) 20 mg capsule Take 1 Cap by mouth 2 times daily. dose increase 60 Cap 3 ??? lorazepam (ATIVAN) 0.5 mg Tab Take 0.5 mg by mouth as needed. ??? PREGABALIN (LYRICA ORAL) Take by mouth daily. ??? lubiprostone (AMITIZA) 24 mcg capsule Take 24 mcg by mouth 2 times daily with meals. ??? zafirlukast (ACCOLATE) 20 mg tablet Take 20 mg by mouth 2 times daily. ??? hydroxychloroquine (PLAQUENIL) 200 mg tablet Take 200 mg by mouth 2 times daily. ??? [...] 4 hours as needed for Wheezing. ??? loratadine (CLARITIN) 10 mg tablet Take 10 mg by mouth once daily. Allergies Allergen Reactions ??? Penicillins ??? Codeine ??? Sulfa (Sulfonamide Antibiotics) ??? Aspirin ??? Egg/poultry ??? Latex, Natural Rubber ??? Chocolate Flavor Hives Anything with chocolate gives rash History Social History ??? Marital Status: Single Spouse Name: N/A Number of Children: N/A ??? Years of Education: N/A Occupational History ??? Not on file. Social History Main Topics ??? Tobacco Use: Quit quit 20+ yr ago ??? Alcohol Use: Yes very occasional ??? Drug Use: No ??? Sexually Active: Yes -- Male partner(s) Control/ Protection: Condom Other Topics Concern ??? Not on file Social History Narrative ??? No narrative on file Review of Systems Constitutional: positive for weight loss, intentional, fatigue, negative for fever, chills Behavioral/Psych: negative for anxiety and depression Eyes: negative for visual disturbance Ears, nose, mouth, throat, and face: positive for nasal congestion related to seasonal allergies, negative for earaches and sore mouth Cardiovascular: negative for chest pain, chest pressure/discomfort with exertion, exertional chest pressure/discomfort, irregular heart beat Respiratory: positive for asthma, negative for cough Breast: positive for rash Gastrointestinal: negative for abdominal pain, change in bowel habits, melena/black stool, bloody stool, nausea and vomiting Hematologic/lymphatic: positive for easy bruising Genitourinary:negative for dysuria/painful urination, frequency of urination and hematuria Skin: positive for rash Endocrine: negative for temperature intolerance Musculoskeletal:positive for right knee pain, left wrist paresthesias Neurological: positive for migraines, negative for dizziness Allergic/Immunologic: positive for hay fever and LATEX Objective: BP 120/82 Pulse 76 Temp(Src) 36.7 ??C (98 ??F) (Tympanic) Ht 1.537 m (5' 0.5) Wt 98.884 kg(218 lb) General appearance: alert, no distress, walks with antalgic gait Skin: papular - submammary, erythematous, becoming confluent, no satellite lesions or pustules Head: Normocephalic, without obvious abnormality, atraumatic Eyes: negative findings: lids and lashes normal, conjunctivae and sclerae normal, corneas clear, pupils equal, round, reactive to light and accomodation and EOMI Ears: normal TM's and external ear canals AU Nose: no discharge, sinus tenderness bilateral Throat/Mouth: lips, mucosa, and tongue normal; teeth and gums normal Neck: supple, symmetrical, trachea midline, no adenopathy and no carotid bruit Lymph nodes: Cervical, supraclavicular, and axillary nodes normal. Lungs: clear to auscultation bilaterally, non labored breathing Heart: regular rate and rhythm, S1, S2 normal, no murmur, click, rub or gallop Abdomen: soft, non-tender; bowel sounds normal; no masses, no organomegaly, abnormal findings: Obese MSK: Right knee with mild swelling, tenderness to palpation Neurologic: Alert and oriented X 3, normal strength and tone. Normal symmetric reflexes. Normal coordination and gait Extremities: extremities warm, atraumatic, no cyanosis or edema positive pulses bilat Pulses: 2+ and symmetric Assessment: Preoperative exam for left CTR-No contraindications to planned surgery Rash, likely cutaneous candidiasis Plan: Cherelle was seen today for pre-op exam and rash. Diagnoses and associated orders for this visit: - Rash - Ketoconazole 2 % topical cream -- Apply topically daily. Apply to affect area(s) as directed. - Keep area dry. Follow up as necessary. - Preop examination - Patient requires endocarditis prophylaxis: no. Recommend perioperative beta-yara: no. GENERAL PREOP INSTRUCTIONS: Proceed with surgery as planned. No food or liquids the morning of surgery. Call surgeon if develops respiratory illness, fever, or other illness. Avoid NSAIDs, aspirin containing compounds for 10 days prior to surgery. May use Tylenol PRN. Dr. Black's office has given patient specific information regarding her prescribed medication dosing before surgery. Agrees to verbally confirm with surgeon prior to planned procedure. - Allergic rhinitis - Loratadine 10 mg tab -- Take 1 Tab by mouth daily. - Arthropathy - Hydroxychloroquine 200 mg tab -- Take 1 Tab by mouth 2 times daily. Requested drug refills are approved. Patient Education Topic: as above Method: Verbal Taught to: Patient Barriers: None Outcomes: verbalized understanding Signature: MARIA Dumont Patient deferred updating tetanus today. Will address at next visit. documented in this encounter Plan of Treatment Not on file documented as of this encounter Visit Diagnoses Diagnosis Rash Rash and other nonspecific skin eruption Preop examination Preoperative examination, unspecified Allergic rhinitis Allergic rhinitis, cause unspecified Arthropathy Arthropathy, unspecified, site unspecified documented in this encounter Discontinued Medications Medication Sig Discontinue Reason Start Date End Da te hydroxychloroquine (PLAQUENIL) 200 mg tablet Take 200 mg by mouth 2 times daily. 02/17/2010 loratadine (CLARITIN) 10 mg tablet Take 10 mg by mouth once daily. Reorder 02/17/2010 documented as of this encounter Care Teams Pig Iron Loader Relationship Specialty Start Date End Date Remedios Mehta MD [address] [place] [phone] PCP - General 02/19/09 01/04/15 documented as of this encounter
--- OUTSIDE RECORDS SUMMARY | 2024-06-24 02:25 | XMS_ITS | Encounter Summary ---
Author Organization [facility] Address [address] [place] [address] Care Team Providers Care Natural Resources Engineer Name Role Phone Remedios Mehta MD Primary Care Provider [phone] Encounter Details Date Type Department Care Team (Latest Contact Info) Description 08/18/2009 11:37 EDT - 08/18/2009 23:59 EDT Hospital Encounter [phone] [place] [address] Remedios Mehta MD [address] [place] [phone] Discharge Disposition: Home or Self Care [...] Puff as directed 2 times daily. 02/04/20 hydroxychloroquine (PLAQUENIL) 200 mg tablet Take 200 mg by mouth 2 times daily. 02/17/2010 loratadine (CLARITIN) 10 mg tablet Take 10 mg by mouth once daily. 02/17/2010 lovastatin (MEVACOR) 20 mg tablet Take 20 mg by mouth daily. 09/18/2009 pantoprazole (PROTONIX) 40 mg tablet Take 40 mg by mouth 2 times daily. 02/03/2010 trazodone (DESYREL) 50 mg tablet Take 1-2 Tabs by mouth at bedtime as needed for Sleep. 06/28/2010 zafirlukast (ACCOLATE) 20 mg tablet Take 20 mg by mouth 2 times daily. 01/14/2011 documented as of this encounter Discharge Disposition Disposition Code Departure Means Destination Home or Self Jail documented in this encounter Progress Notes * Inpatient, Physician - 11/11/2009 1058 EST documented in this encounter Plan of Treatment Not on file documented as of this encounter Procedures Procedure Name Priority Date/Time Associated Diagnosis Comments SURGICAL PATHOLOGY Routine 11/11/2009 0:00 EST documented in this encounter Results * SURGICAL PATHOLOGY (11/11/2009 0:00 EST) Pathology Report: SURGICAL PATHOLOGY REPORT ? Reports generated via electronic interface contain original data; ? however they are lacking the format of the original report. ? Caution should be taken when reading/interpreti ng unformatted reports. ? Name: ? CHERELLE HUSAIN ? Accession #: ? [id number] ? : ? 1960 (Age: 49) ??F ? Collect Date: ? 11/11/2009 ? Location: ? [facility] ? Receive Date: ? 11/11/2009 ? Provider: NAYELI MARX MD ? Copy to: KING A RUCKER MD ? Final Pathologic Diagnosis: ? A. ?Skin of alar crease, left, shave biopsy: ? 1. ?Melanocytic nevus, predominantly intradermal type. ? B. ?Skin of back, mid, shave biopsy: ? 1. ?Melanocytic nevus, intradermal type. ? C. ?Skin of neck, right, shave biopsy: ? 1. ?Melanocytic nevus, intradermal type. ? Document reviewed and electronically signed by: ? Cira Ray MD ? Report ??Date: 11/13/2009 16:25 ? By the signature above, the attending physician certifies that he/she has ? personally conducted a gross and/or microscopic examination of the described ? specimens and rendered or confirmed the above diagnosis. ? Specimen(s) Received: ? Skin shave bx ? A. ?L alar crease ? B. ? Mid back ? C. ? R neck ? Clinical History: ? A. New approximately 2.0 ??3.0 papule (white) on L alar crease - ? FP, ? nevus, BCC. B. mid back-brown sessile papule irritated by bra - ? nevus. C. Rt ?? neck approximately 3.0 mm skin colored papule irritated by shirts - ? nevus; ? Clinical diagnosis code: 239.2 ? Gross Description: ? Received in formalin labelled Cherelle Husain and L alar crease is a monahan 0.3 x 0.2 cm irregular skin shave. ??The specimen is entirely submitted as (A). ? Received in formalin labelled Cherelle Husain and mid back is a monahan, curling, 0.8 x 0.6 cm skin shave with a central monahan-pink, smooth to wrinkled 0.5 x 0.5 x 0.2 cm papule. ??The specimen is inked, trisected and entirely submitted as (B). ? Received in formalin labelled Cherelle Husain and R neck is a 0.4 x 0.3 x 0.2 cm papule. ??The specimen is inked, bisected and entirely submitted as (C). (M. ?? Drake)/mpl ? End of Report ? [facility] 11/11/2009 11/11/2009 9:0 8 EST Nayeli Marx MD PATHOLOGY ORDERABLES [facility] [address] [place] [address] documented in this encounter Visit Diagnoses Not on filedocumented in this encounter Care Teams Natural Resources Engineer Relationship Specialty Start Date End Date Remedios Mehta MD [address] [place] [phone] PCP - General 02/19/09 01/04/15 documented as of this encounter
--- OUTSIDE RECORDS SUMMARY | 2024-06-24 02:25 | XMS_ITS | Encounter Summary ---
Author Organization [facility] Address [address] [place] [address] Care Team Providers Care Casino Banker Name Role Phone Remedios Mehta MD Primary Care Provider [phone] Reason for Visit * Reason Comments Pre-op Exam right knee replaceme nt surg sched for 04/15 by [facility] ([facility]) Encounter Details Date Type Department Care Team (Late st Contact Info) Description 03/22/2010 11:30 EDT Office Visit [address] [phone] Abisai Martin MD Degenerative arthritis of right knee (Primary Dx) Social History Tobacco Use [...] Sign Reading Time Taken Comments Blood Pressure 102/66 03/22/2010 1158 EDT Pulse 80 03/22/2010 1158 EDT Temperature 36.3 ??C (97.4 ??F) 03/22/2010 1158 EDT Respiratory Rate - - Oxygen Saturation - - Inhaled Oxygen Concentration - - Weight 99.3 kg (219 lb) 03/22/2010 1158 EDT Height - - Body Mass Index 41.38 03/10/2010 1734 EDT documented in this encounter Patient Instructions * Patient Instructions* Abisai Martin MD - 03/22/2010 12:38 EDT Your exam today suggests that you can have your surgery as scheduled. However, if you develop any significant respiratory or cardiac issues between now and your surgery date, please let us know. documented in this encounter Progress Notes * Abisai Martin MD - 03/22/2010 1242 EDT Cherelle is a 49 y.o. Woman with end-stage OA, right knee who is scheduled for TKR per Dr. Reyes on 04-15-10. She presents for a pre-op PE Per Dr. Reyes. Please see completed pre-op PE as scanned into this record. documented in this encounter H&P Notes * Inpatient, Physician - 03/24/2010 1024 EDT documented in this encounter Plan of Treatment Not on file documented as of this encounter Visit Diagnoses Diagnosis Degenerative arthritis of right knee- Primary Osteoarthrosis, unspecified whether generalized or localized, lower leg documented in this encounter Care Teams Casino Banker Relationship Specialty Start Date End Date Remedios Mehta MD [address] [place] [phone] PCP - General 02/19/09 01/04/15 documented as of this encounter
--- OUTSIDE RECORDS SUMMARY | 2024-06-24 02:25 | XMS_ITS | Encounter Summary ---
Author Organization [facility] Address [address] [place] [address] Care Team Providers Care Senior Mobile Web Developer Name Role Phone Remedios Mehta MD Primary Care Provider [phone] Reason for Visit * Reason Comments Wrist Problem left wrist carpal tu nnel syndrome Encounter Details Date Type Department Care Team (Late st Contact Info) Description 02/01/2010 8:45 EDT Office Visit [facility]rem[facility] - [address] [place] [address] Gage Black MD [address] [place] [address] CTS (carpal tunnel syndrome) (Primary Dx) Social History Tobacco Use Types [...] - - Weight 98.4 kg (217 lb) 02/01/2010 0939 EDT Height 152.4 cm (5') 02/01/2010 0939 EDT Body Mass Index 42.38 02/01/2010 0939 EDT documented in this encounter Patient Instructions * Patient Instructions* Bozena CooperDANIEL - 02/01/2010 10:23 EDT [address] PATIENTS OF DR[address] GAGE BLACK Date of Surgery: 03/02/10 Where: [facility] The utilities operator will call you the day before surgery to let you know the time of your surgery and your arrival time. Pre-operative Phone Interview with the Hospital Nurse: 02/24/10 3-4 PM Your appointment to see the doctor for follow-up care is on -0 @ 2:30 Occupational/Hand Therapy appointment: TO FOLLOW IF NEEDED Things To Do To Prepare For Surgery A complete history and physical must be done before you may have surgery. The physical is done by your family doctor within 30 days of your surgery date. An EKG is part of this physical for males age45 and above, and females age 55 and above Refrain from taking the follow medications for approximately 5-7 days before your surgery: Anti-Coagulants such as Plavix, Coumadin, Warfarin, Lovenox, and anti-inflammatories such as Aspirin, Advil,Aleve, Motrin, Ibuprofen, Naprosyn, Relafen,Mobic etc. These medications are OK to take: Celebrex and Tylenol. If this is a Worker's Compensation case you should contact your assigned classification case manager to inform them of your surgery date. If you have not been contacted by 4 pm the day before your surgery, please give us a call. Additionally, if you have any other questions, please feel free to contact our office. Toll free [phone] or [phone]. Our office hours are Monday - Monday 8:00 am - 4:30 pm. After office hours, you will reach the answering service. They can assist you in reaching the physician on-call. POST OPERATIVE INSTRUCTIONS Keep your dressing/splint clean, dry and intact until you return to the office for your first visit. Swelling is expected in the arm/hand upon which you had surgery. To help relieve swelling, elevate the extremity, apply cold/ice, and use an over the counter anti-inflammatory as directed on the label such as Ibuprofen, Advil, or Aleve. Bleeding on your dressing after surgery may be normal and is no cause for alarm. Old blood will appear brownish in color. Call our office if you have active bleeding, this will be a bright red spot continually increasing in size. You will be given a prescription for a narcotics pain reliever to manage your pain during the immediate post operative period of 2-4 weeks. These medications can have side effects that include but are not limited to nausea, dizziness, sedation, insomnia, and constipation. Anticipating these temporary side effects will better enable you to better manage them. Always take your medicine with food and maintain an adequate fluid intake. If you are not able to manage/tolerate these side effects, callour office. PLEASE keep in mind that you are required to have a written prescription to take to the pharmacy tohave narcotic medication given to you, these cannot be called in. If you live out of town and/or out of state you'll need to plan in advance for someone to come to the office to get a prescription for any refills you may require to meet your pain control needs. There are 4 things you need to check a couple of times a day: ?? Color - There is frequently bruising associated with fractures or surgery. The color associated with bruising usually black and blue and later on greenish- yellow and it may spread out as time passes. This is entirely normal. ?? Sensation - When you have surgery you may be given a nerve block by Anesthesia or be given a local block at the site of surgery by the surgeon. This block makes your arm/hand feel numb and heavy. This sensation can last for several hours or as long as 24 - 72 hours after surgery. This is normal.As the block wears off, you should be able to feel your arm/hand. They should no longer feel tinglyor numb. If the numbness/tingling persist this may be due to swelling. ?? Motion - You should be able to wiggle your fingers (if you have been instructed to do so). If you cannot, please call the office. ?? Temperature - The temperature of operative limb, as measured by touch, should be similar to the non-operative limb. It may be cooler related to nonuse but shouldn't be significantly colder than the unaffected limb. Call our office if you have concern. Call our office if you have a fever of 102 or above. Instructions for Fasting Before Surgery It is very important that ALL surgical patients fast (no eating, no drinking) for a period of time before surgery. Children under the age of 12: ?? Stop solid food and milk 6 hours prior to surgery Stop breast milk 4 hours prior to surgery Stop clear liquids 3 hours prior to surgery Adults and children over the age of 12 having surgery BEFORE 12:00 noon: ?? Nothing to eat or drink after midnight prior to surgery Adults and children over the age of 12 having surgery AFTER 12:00 noon: ?? Stop solid food and milk products at midnight Stop clear liquids 4 hours prior to surgery Clear liquids include Water, apple or cranberry juice, popsicles, Jell-O, boom zulma, Fat Free broth, black or sweetened coffee or tea. Following these instructions will help prevent nausea, vomiting, and aspiration (breathing in of stomach contents) during and after surgery. Your surgery may be cancelled or postponed if these guidelines are not followed. Medications and medical conditions can sometimes affect these guidelines. Take your medications as directed with small sips of water at any time prior to your procedure. (If a medication must be taken with something other than fat free liquids or sips of water, please refer to the Preoperative Center at for guidance.) If you have questions, please call the Pre-op Center at [facility] [phone] between the hours of 7:30am - 5:30pm Monday - Monday WHAT TO EXPECT AN OUTPATIENT SURGICAL PATIENT [facility]'s Outpatient Surgery program is a service offered to those patients in the community who require minor surgical treatment which can be safely completed in one day's time, therefore not requiring overnight hospitalization. The service permits the patient to have surgery and to go home the same day. In order to make your stay as short and as comfortable as possible, this instruction sheet has beenprepared for your convenience. The instructions contained in this document are important to ensure a safe surgical procedure and early discharge home. Preparing at home for surgery Follow the eating or drinking guidelines given to you by your physician. Shower or bathe the night before and again on the morning of your surgery with an antibacterial soap, since this practice can decrease your risk of an infection. Wear casual, comfortable, loose clothing such as sweat suits, easy button shirts or blouses. Remove all makeup and nail estonian. Bring an eyeglass case or contact lens case if you wear corrective lenses. Please leave all valuables, money and jewelry at home. Remove all rings Please call your surgeon's office or pre-op services at [phone] with any questions. Notify your doctor if you become ill before surgery, or develop a blemish, cut, rash or abrasion on or around your Single patients under the age of 18 MUST have a parent or legal guardian in the hospital at ALL times on the day of surgery, from the time of admission until discharge either home or to an inpatient bed. Bring any special items needed (crutches, pillows for ride home). In order to coordinate your care, please ensure your ride arrives a half hour before your expected discharge time. Arrange for a responsible adult to go home with you and to stay with you overnight. When you arrive for surgery Please arrive at [facility] per the time specified by your physician's office. Thiswill allow us adequate time to prepare you for your surgery. Your surgery will be scheduled either on the [facility] or on the [facility]. After registering in Admitting, you will be sent to the Surgical Admission area where you will be prepared for your surgery. You will change into a hospital gown or [facility]. Your health status will be updated and an IV (intravenous fluid) will be started. If an intravenous is needed on a child, it will be started in the operating room after the child is asleep. You will meet one of the anesthesia staff who will be with you during your surgery. They will ask you some questions and finalize your anesthesia plan of care. You will be moved into the operating room on a stretcher. A designated family waiting area at each campus is staffed by a hotel receptionist who will take your family's name as they enter. Your surgeon will speak with them after your surgery. Please note that there is limited waiting area and we recommend only one or two family members accompany the patient. After your surgery -??? recovery You will be transferred to the Post Anesthesia Care Unit (PACU). When having outpatient surgery, most of the time you can go home between 1-4 hours after your surgery. Total recovery time varies fromprocedure to procedure. If you require extended recovery time, you can expect to be moved to the Post Procedure Recovery Unit (PPR) until your physician and nurse have determined that it is safe for you to go home. If your physician determines that you require additional observation or a longer time to recover, you will be admitted and moved to an inpatient unit overnight. When this occurs, depending on the type of surgery you have, the hospital will bill your insurance as an outpatient subject to the benefits in your insurance plan. Adult parents or significant others are appropriate visitors in that PACU as visitation is limited to ensure safe quality care. Please try and make suitable arrangements for children under the age of18 during the post operative waiting period for their safety and comfort. All patients must leave the hospital accompanied by a responsible adult party bus driver after anesthesia or sedation. For the first 24 hour period after receiving sedation or anesthesia, you should NOT make important decisions, drive, operate machinery, or drink alcohol. Note: In some cases you may be sent home but directed to follow up in the doctor's office within a day or two. If you live locally, this should not be a problem. However, if you live further away, you may be asked to make arrangements for motel/hotel accommodations in the [facility]. You can find lodging information on [email or web address] under the Patients and Visitors tab/Visitor's guide/Community Information/Hotel, Motel & Lodging. This is a copy of the consent for you will sign the day of surgery with the anesthesiologist. I give it to you at this time so you can read it at your leisure. I understand that: ?? I need to consider anesthesia care for myself or the above named patient. The type of anesthesiato be recommended will depend upon the procedure, and the physical and psychological condition of the patient. Anesthesia is a medical service which manages patients before, during, and after a procedure. Patients are rendered unconscious or with diminished response to pain and stress during the course of a medical, surgical, or obstetrical procedure. Conditions may require implementation of anesthetic or monitoring techniques not necessarily discussed, but necessary for the patient's benefit and well-being, including placement of catheters in large blood vessels, epidural catheters in the spine for pain control, nerve blocks, cardiopulmonary life support, and blood or blood product transfusions. In addition to the anesthesiologist whose name appears on this document, the anesthetic care may beprovided by other anesthesiologists with hospital staff privileges or, acting under the direct supervision of the anesthesiologist, by certified registered nurse anesthetists, and to a more limited extent by the nurses, and medical personnel trainees. There is the possibility of unforeseen occurrences and no guarantees have been made as to the result of the anesthetic. Types of Anesthesia and Definitions General Anesthesia: is the provision of intravenous (IV) or inhalational (gaseous) anesthetic medications as deemed necessary to provide managed loss of consciousness and insensibility to pain. At a minimum, in additionto monitoring devices, a mask on the face or on the larynx (voice box) or a tube in the trachea (wind pipe) will be utilized. Regional Anesthesia and Analgesia: is suitable for some operations and other painful conditions. Anesthetics and other medications areinjected into the spinal or epidural space, or other locations to provide loss of or reduced sensation in a specific area of the body and may be supplemented by local anesthesia, sedation, or generalanesthesia as deemed necessary to provide adequate comfort. These techniques may be continued into the postoperative period for the purpose of controlling or diminishing the anticipated discomfort normally associated with a surgical procedure. Monitored Anesthesia Care (MAC): is the monitoring and possible treatment of at least blood pressure, blood oxygen level, heart rate, and mental state using supplementing sedation and analgesia as well as other medications, as needed to provide comfort and safety. This type of care is typically implemented in conjunction with surgeon administered local anesthesia. Local Anesthesia Local anesthesia is usually done by the operating physician, where anesthetizing agents are injected of infiltrated into a small area of the body, for example the surgical site. Topical Anesthesia. Surface anesthesia is produced by direct application of anesthetizing agents onskin or mucous membranes. Fortunately, anesthesia care is safe for the general population. To be complete, however, please review the following: Risk and Complications may include but are not limited to: allergic/adverse drug reaction, lung aspiration of stomach contents, backache, dental injury, injury or demise, headache, heart attack, inability to reverse the effects of anesthesia as planned, infection, injection of substance into an unintended site, localized swelling and/or redness, lung injury, muscle aches, nausea or vomiting, opthalmic (eye) injury, pain, pneumonia, nerve injury, recall of sound/noise/speech, seizures, sore throat, and inadequacy of the prescribed anesthetic necessitating a change in treatment. On extremely rare occasions, brain damage, coma, paralysis, stroke, or may result. I understand that alternative therapeutic choices, with varying risks, including no anesthesia, maybe available. Special techniques such as hypothermic arrest, hypotensive anesthesia, lumbar fluid drainage, or dilutional anemia recommended by the surgeon or anesthesiologist may be implemented for the benefit of the patient. I have been given the opportunity to ask questions about anesthesia and feel that I have sufficient information to give this informed consent. If I refuse to accept any recommendation or treatment by the anesthesiologist, it is noted below. I agree to anesthesia care and specifically to the anesthesia care prescribed to me by the medical instrument technician/anesthesiologist for my surgical procedure excepting... My consent will continue in effect unless withdrawn. If you have any questions and would like to discuss your anesthesia care please call the Departmentof Anesthesia at [phone] and you will be connected to an anesthesiologist or one will return your phone call. documented in this encounter Progress Notes * Gage Black MD - 02/17/2010 1505 EDT ORTHOPAEDICS AND REHABILITATION SERVICES PROGRESS/FOLLOWUP NOTE - 02/01/2010 SUBJECTIVE: Ms Husain is here in followup of her left hand numbness. At her last visit, we gave her an injection of cortisone to see if we could alleviate her symptoms of carpal tunnel syndrome. Unfortunately, she says that her symptoms were helped for only a week or so, after which she has continued to have the same numbness in her hand. At this point, she is interested in having surgery. OBJECTIVE: Physical examination shows that her hand is looking good. She has a very strong Tinel's sign at the carpal tunnel. She has no evidence of atrophy in her thenar eminence. Power was well preserved. Sensation was decreased in the median nerve distribution. She had negative Tinel's sign throughout the rest of her extremity. DIAGNOSTIC DATA: Nerve conduction studies confirmed the ongoing carpal tunnel syndrome in the left hand. Those were done on 08/18/[address] Perry and demonstrate a moderate left carpal tunnel syndrome. PLAN: After discussion with her today, we elected to proceed with surgery to her left carpal tunnel. Endoscopic versus open procedure were discussed and she wanted to proceed with an endoscopic as she has had very good success on the right side, which was done approximately 20 years ago. Potential complication and postop care were discussed with her. We will proceed as soon as possible. Electronically Signed by Gage Black MD 02/17/2010 15:05 Gage Black MD [address] [place] [id number] - Gage Black MD - Job ID: SM Doc ID: [id number] Ext Doc ID: [id number] cc: * Gage Black MD - 02/01/2010 0957 EDT Review of Systems - Negative This office note has been dictated. documented in this encounter Plan of Treatment Not on file documented as of this encounter Visit Diagnoses Diagnosis CTS (carpal tunnel syndrome)- Primary Carpal tunnel syndrome documented in this encounter Care Teams Senior Mobile Web Developer Relationship Specialty Start Date End Date Remedios Mehta MD [address] [place] [phone] PCP - General 02/19/09 01/04/15 documented as of this encounter
--- OUTSIDE RECORDS SUMMARY | 2024-06-24 02:25 | XMS_ITS | Encounter Summary ---
Author Organization [facility] Address [address] [place] [address] Care Team Providers Care Marketing Account Manager Name Role Phone Remedios Mehta MD Primary Care Provider [phone] Encounter Details Date Type Department Care Team (Late st Contact Info) Description 11/02/2009 Orders Only [facility] [address] [id number] Cathryn Garza, MARIA [address] [place], [place] [id number] Social History Tobacco Use Types Packs/Day Years Used Date Smoking Tobacco: Never Assessed Sex and Gender Information Value Date Recorded Sex Assigned at Not on file Gender Identity Female 2021 11:19 EDT Sexual Orientation Not on file documented as of this encounter Plan of Treatment Not on file documented as of this encounter Procedures Procedure Name Priority Date/Time Associated Diagnosis Comments ECHOCARDIOGRAM 11/02/2009 8:18 EST documented in this encounter Results * ECHOCARDIOGRAM (11/02/2009 8:18 EST) Anatomical Region Laterality Modality Other 11/02/2009 8:18 EST Narrative 11/02/2009 10:23 EST Interpreting Group: [facility] [address] [place] [id number] *STUDY CONCLUSIONS* SUMMARY - ??Overall left ventricular systolic function was normal. Left ventricular ejection fraction was estimated to be 65 %. There were no left ventricular regional wall motion abnormalities. - ??There are no significant valvular abnormalities. *PATIENT PRESENTATION* Height: ? 60 in ( 152 cm ) S/D Pressure: Weight: ? 222.64 lb ( 101.2 kg ) BSA: ?1.95 m^2 Referring MD: ??Cathryn Garza Critical Care Nurse Practitioner: ?? Robbie Mantilla MD: ?? Cathryn Garza Referring MD: ??Remedios Strong MD Attending MD: ??Cathryn Garza *INDICATIONS AND HISTORY* DIAGNOSES SUPPORTING MEDICAL NECESSITY: 780.4 dizziness *PROCEDURE DATA* PROCEDURE INFORMATION: A transthoracic complete 2D study was performed. Additional evaluation included M-mode, complete spectral Doppler, and color Doppler. This was a routine echocardiographic study. This study was interpreted by [facility] at [facility]. The procedure was started at 08:20:06. The procedure ended at 08:53:10. Lyly 4 Image quality was adequate. *CARDIAC ANATOMY* LEFT VENTRICLE: - ??Left ventricular size was normal. - ??Overall left ventricular systolic function was normal. - ??Left ventricular ejection fraction was estimated to be 65 %. - ??There were no left ventricular regional wall motion abnormalities. - ??Left ventricular wall thickness was normal. RIGHT VENTRICLE: - ??Right ventricular size was normal. - ??Right ventricular systolic function was normal. - ??Right ventricular wall thickness was normal. LEFT ATRIUM: - ??Left atrial size was normal. RIGHT ATRIUM: - ??Right atrial size was normal. AORTIC VALVE: - ??The aortic valve was not well visualized. Doppler interpretation(s): - ??There was no significant aortic valve stenosis by color Doppler and spectral Doppler. - ??There was no significant aortic valvular regurgitation by color Doppler. MITRAL VALVE: - ??Mitral valve structure was normal. - ??There was normal mitral valve leaflet excursion. Doppler interpretation(s): - ??There was no significant mitral valve stenosis by color Doppler and spectral Doppler. - ??There was no significant mitral valvular regurgitation by color Doppler. PULMONIC VALVE: - ??The pulmonic valve was not well visualized. Doppler interpretation(s): - ??There was no significant pulmonic valve stenosis by color Doppler and spectral Doppler. - ??There was no significant pulmonic regurgitation by color Doppler. TRICUSPID VALVE: - ??The tricuspid valve structure was normal. - ??Tricuspid leaflet excursion was normal. Doppler interpretation(s): - ??There was no significant tricuspid valve stenosis by color Doppler and spectral Doppler. - ??There was no significant tricuspid valvular regurgitation by color Doppler. PERICARDIUM: - ??There was no significant pericardial effusion. - ??The pericardium was normal in appearance. AORTA: - ??The aortic root was normal in size. PULMONARY ARTERY: - ??The pulmonary artery was normal size. Doppler interpretation(s): - ??The estimated pulmonary artery systolic pressure was within the normal range. SYSTEMIC VEINS: - ??The inferior vena cava was normal. *MEASUREMENT TABLES* 2D measurements AORTA ?NORMAL AO root (root) ?26.7 ?? mm ?<40 mm LEFT ATRIUM ?NORMAL LAD A-P es ?36 ? mm ?-- M-mode measurements LEFT VENTRICLE ? NORMAL LVID ed ? 45 ? mm ?<56mm LVID es ? 29 ? mm ?<40 mm FS ?35 ? % ? >29% IVS ed ?8 ?mm ?<11 mm LVPWT ed ?11 ? mm ?<11 mm LV mass ? 172.8 ??g ? <150 g W/<200 g M LV mass index ? 88.4 ?? g/m^2 ?? -- LV mass/height ?1.14 ?? g/cm ?-- LV EF (Johnna) ? 65 ? % ? > 55 % Doppler measurements MITRAL VALVE ? NORMAL Peak E velocity ? 72 ? cm/sec ??62 + or - 14 cm/sec Peak A velocity ? 82 ? cm/sec ??49 + or - 14 cm/sec MV peak E/A ? 0.88 ? 1.1-1.7 MV deceleration time ??212 ?msec ?210 + or - 40 Peak gradient ? 2 ?mmHg ?-- Reviewed and signed by Hima Woodard MD Confirmed 02-Nov-2009 10:22:13 Procedure Note 11/02/2009 Interpreting Group: [facility] [address] [place] [id number] *STUDY CONCLUSIONS* SUMMARY - Overall left ventricular systolic function was normal. Leftventricular ejection fraction was estimated to be 65 %. There were no left ventricular regional wall motion abnormalities. - There are no significant valvular abnormalities. *PATIENT PRESENTATION* Height: 60 in ( 152 cm ) S/D Pressure: Weight: 222.64 lb ( 101.2 kg ) BSA: 1.95 m^2 Referring MD: Cathryn Garza Critical Care Nurse Practitioner: Robbie Mantilla MD: Cathryn Garza Referring MD: Remedios Strong MD Attending MD: Cathryn Garza *INDICATIONS AND HISTORY* DIAGNOSES SUPPORTING MEDICAL NECESSITY: 780.4 dizziness *PROCEDURE DATA* PROCEDURE INFORMATION: A transthoracic complete 2D study was performed. Additional evaluation included M-mode, complete spectral Doppler, and color Doppler. This wasa routine echocardiographic study. [facility] The procedure was started at 08:20:06. The procedure ended at 08:53:10. Lyly 4 Image quality was adequate. *CARDIAC ANATOMY* LEFT VENTRICLE: - Left ventricular size was normal. - Overall left ventricular systolic function was normal. - Left ventricular ejection fraction was estimated to be 65 %. - There were no left ventricular regional wall motion abnormalities. - Left ventricular wall thickness was normal. RIGHT VENTRICLE: - Right ventricular size was normal. - Right ventricular systolic function was normal. - Right ventricular wall thickness was normal. LEFT ATRIUM: - Left atrial size was normal. RIGHT ATRIUM: - Right atrial size was normal. AORTIC VALVE: - The aortic valve was not well visualized. Doppler interpretation(s): - There was no significant aortic valve stenosis by color Doppler and spectral Doppler. - There was no significant aortic valvular regurgitation by colorDoppler. MITRAL VALVE: - Mitral valve structure was normal. - There was normal mitral valve leaflet excursion. Doppler interpretation(s): - There was no significant mitral valve stenosis by color Doppler and spectral Doppler. - There was no significant mitral valvular regurgitation by colorDoppler. PULMONIC VALVE: - The pulmonic valve was not well visualized. Doppler interpretation(s): - There was no significant pulmonic valve stenosis by color Doppler and spectral Doppler. - There was no significant pulmonic regurgitation by color Doppler. TRICUSPID VALVE: - The tricuspid valve structure was normal. - Tricuspid leaflet excursion was normal. Doppler interpretation(s): - There was no significant tricuspid valve stenosis by color Dopplerand spectral Doppler. - There was no significant tricuspid valvular regurgitation by color Doppler. PERICARDIUM: - There was no significant pericardial effusion. - The pericardium was normal in appearance. AORTA: - The aortic root was normal in size. PULMONARY ARTERY: - The pulmonary artery was normal size. Doppler interpretation(s): - The estimated pulmonary artery systolic pressure was within thenormal range. SYSTEMIC VEINS: - The inferior vena cava was normal. *MEASUREMENT TABLES* 2D measurements AORTA NORMAL AO root (root) 26.7 mm <40 mm LEFT ATRIUM NORMAL LAD A-P es 36 mm -- M-mode measurements LEFT VENTRICLE NORMAL LVID ed 45 mm <56mm LVID es 29 mm <40 mm FS 35 % >29% IVS ed 8 mm <11 mm LVPWT ed 11 mm <11 mm LV mass 172.8 g <150 g W/<200 g M LV mass index 88.4 g/m^2 -- LV mass/height 1.14 g/cm -- LV EF (Teichholz) 65 % > 55 % Doppler measurements MITRAL VALVE NORMAL Peak E velocity 72 cm/sec 62 + or - 14 cm/sec Peak A velocity 82 cm/sec 49 + or - 14 cm/sec MV peak E/A 0.88 1.1-1.7 MV deceleration time 212 msec 210 + or - 40 Peak gradient 2 mmHg -- Reviewed and signed by Hima Woodard MD Confirmed 02-Nov-2009 10:22:13 Cathryn SIFUENTES CARDIAC ECHO ORDERAB LES documented in this encounter Visit Diagnoses Not on filedocumented in this encounter Care Teams Marketing Account Manager Relationship Specialty Start Date End Date Remedios Mehta MD [address] [place] [phone] PCP - General 02/19/09 01/04/15 documented as of this encounter
--- OUTSIDE RECORDS SUMMARY | 2024-06-24 02:25 | XMS_ITS | Encounter Summary ---
Author Organization [facility] Address [address] [place] [address] Care Team Providers Care Metal Hanging Helper Name Role Phone Remedios Mehta MD Primary Care Provider [phone] Encounter Details Date Type Department Care Team (Late st Contact Info) Description 01/27/2010 Abstract [facility] - [address] [address] Jakub Black MD [address] [place] [phone] Fibromyalgia Social History Tobacco Use Types Packs/Day [...] Diagnoses Diagnosis Fibromyalgia Mylagia and myositis, unspecified documented in this encounter Care Teams Metal Hanging Helper Relationship Specialty Start Date End Date Remedios Mehta MD [address] [place] [phone] PCP - General 02/19/09 01/04/15 documented as of this encounter
--- OUTSIDE RECORDS SUMMARY | 2024-06-24 02:25 | XMS_ITS | Encounter Summary ---
Author Organization [facility] Address [address] [place] [address] Care Team Providers Care Evaporator Name Role Phone Remedios Mehta MD Primary Care Provider [phone] Reason for Referral * Consult, Test and Treat (Routine) - Closed Specialty Diagnoses / Procedures Referred By Joao proctor Referred To Contact Physical Therapy Diagnoses Obesity Osteoarthritis Fibromyalgia Remedios Mehta MD [address] [place] [phone] Referral ID Status Reason Start Date Expiration Date Visits Requested Visits Authorized [id number] Closed Patient Preference 03/10/2010 1 1 Question Answer Reason for Request: 49 yo woman with severe OA (pre-op for knee replacement) needing PT for weight loss as well as OA Comments PT PREFERS REHAB GYM IN [place] Reason for Visit * Reason Comments Obesity need weight plan Knee Pain right knee pain and swelling follow up Hypertension follow up Hyperlipidemia Encounter Details Date Type Department Care Team (Late st Contact Info) Description 03/10/2010 17:30 EDT Office Visit [facility] [address] [address] Remedios Mehta MD [address] [place] [phone] Fibromyalgia; Osteoarthritis; Obesity; Hypertension; Asthma Social History Tobacco Use Types Packs/Day [...] Sign Reading Time Taken Comments Blood Pressure 130/90 03/10/2010 1734 EDT Pulse 68 03/10/2010 1734 EDT Temperature - - Respiratory Rate - - Oxygen Saturation - - Inhaled Oxygen Concentration - - Weight 98.9 kg (218 lb) 03/10/2010 1734 EDT Height 154.9 cm (5' 1) 03/10/2010 1734 EDT Body Mass Index 41.19 03/10/2010 1734 EDT documented in this encounter Patient Instructions * Patient Instructions* Remedios Strong MD - 03/10/2010 18:12 EDT Images from the original note were not included. [facility] Patient Instructions Body Mass Index: After Your Visit Your Care Instructions Body mass index (BMI) can help you see if your weight is raising your risk for health problems. It uses a formula to compare how much you weigh with how tall you are. A BMI between 18.5 and 24.9 is considered normal. A BMI between 25 and 29.9 is considered overweight. A BMI of 30 or higher is considered obese. If your BMI is in the normal range, it means that you have a lower risk for weight-related health problems. If your BMI is in the overweight or obese range, you may be at increased risk for weight-related health problems, such as high blood pressure, heart disease, stroke, arthritis or joint pain, and diabetes. BMI is just one measure of your risk for weight-related health problems. You may be at higher risk for health problems if you are not active, you eat an unhealthy diet, or you drink too much alcohol or use tobacco products. Follow-up care is a gomez part of your treatment and safety. Be sure to make and go to all appointments, and call your doctor if you are having problems. It???s also a good idea to know your test results and keep a list of the medicines you take. How can you care for yourself at home? ?? Practice healthy eating habits. This includes eating plenty of fruits, vegetables, whole grains,lean protein, and low-fat dairy. Get at least 30 minutes of exercise 4 to 5 days a week or more. Brisk walking is a good choice. Youalso may want to do other activities, such as running, swimming, cycling, or playing tennis or teamsports. Do not smoke. Smoking can increase your risk for health problems. If you need help quitting, talk to your doctor about stop-smoking programs and medicines. These can increase your chances of quittingfor good. Limit alcohol to 2 drinks a day for men and 1 drink a day for women. Too much alcohol can cause health problems. If you have a BMI higher than 25 ?? Your doctor may do other tests to check your risk for weight-related health problems. This may include measuring the distance around your waist. A waist measurement of more than 40 inches in men or 35 inches in women can increase the risk of weight-related health problems. Talk with your doctor about steps you can take to stay healthy or improve your health. You may needto make lifestyle changes to lose weight and stay healthy, such as changing your diet and getting regular exercise. When should you call for help? Watch closely for changes in your health, and be sure to contact your doctor if you have any problems. Where can you learn more? Go to www.[employer].net/fahc Enter S176 in the search box to learn more about Body Mass Index: After Your Visit. ?? 2005 - 2008 [employer]. Care instructions adapted under license by [facility], Inc . This care instruction is for use with your licensed healthcare professional. If you have questions about a medical condition or this instruction, always ask your healthcare professional. [facility] disclaims any warranty or liability for your use of this information. [facility] Patient Instructions Starting a Weight Loss Plan: [...] about seeing a registered dietitian or an customer specialist. It can be a big challenge [...] may be enough to improve your health. Get family and friends involved to provide support. Talk to them about why you are trying to lose weight, and ask them to help. They can help by participating in exercise and having meals with you, even if they may be eating something different. Find what works best for you. If you do not have time or do not like to cook, a program that offersmeal replacement bars or shakes may be better for you. Or if you like to prepare meals, finding a plan that includes daily menus and recipes may be best. Ask your doctor about other health professionals who can help you achieve your weight loss goals. ?? A dietitian can help you make healthy changes in your diet. An customer specialist or personal lines insurance agent can help you develop a safe and effective exercise program. A counselor or psychiatrist can help you cope with issues such as depression, anxiety, or family problems that can make it hard to focus [...] you learn more? Go to www.healthwise.net/fahc Enter U357 in the search box to learn more about Starting a Weight Loss Plan: After Your Visit. ?? 2005 - 2008 [employer]. Care instructions adapted under license by [facility], [facility] . This care instruction is for use with your licensed healthcare professional. If you have questions about a medical condition or this instruction, always ask your healthcare professional. [employer] disclaims any warranty or liability for your use of this information. documented in this encounter Ordered Prescriptions Prescription Sig Dispensed Refills Start Date End Da te metoprolol (LOPRESSOR) 25 mg tabletIndications:Hyperten oliverio Take 1 Tab by mouth 2 times daily. 180 Tab 4 03/10/2010 03/30/2011 pregabalin (LYRICA) 25 mg capsuleIndications:Fibromy algia,Osteoarthritis,Obesi ty Take 1 Cap by mouth 3 times daily. 90 Cap 5 03/10/2010 04/20/2010 documented in this encounter Progress Notes * Remedios Strong MD - 03/11/2010 1231 EDT Subjective: Patient ID: Cherelle Husain is an 49 y.o.} female. Chief Complaint: Chief Complaint Patient presents with ??? Obesity need weight plan ??? Knee Pain right knee pain and swelling follow up ??? Hypertension follow up ??? Hyperlipidemia HPI Cherelle is having total knee replacement of her right knee in March. She has been advised to go on a total weight loss plan to start before surgery and continue after. Her knee replacement will include titanium and her orthopedist told her she needs to lose weight if she wants it to last more than 15-20 years. She feels well otherwise. Denies CP,SOB. Her knee pain impedes her from walking more and she is looking forward to being able to do this. Past Medical History Diagnosis Date ??? Fibromyalgia ??? Obesity ??? Asthma ??? Depression ??? Anxiety ??? GERD (gastroesophageal reflux disease) ??? Fibromyalgia ??? confirmed 1979,1982 2 vaginal deliveries Family History Problem Relation ??? Diabetes Mother ??? High Blood Pressure Father ??? High Cholesterol Father Current outpatient prescriptions Medication Sig Dispense Refill ??? oxycodone (ROXICODONE) 5 mg immediate release tablet Take 5 mg by mouth every 4 hours as neededfor Pain. ??? pregabalin (LYRICA) 25 mg capsule Take 1 Cap by mouth 3 times daily. 90 Cap 5 ??? ketoconazole (NIZORAL) 2 % cream Apply [...] 4 hours as needed for Wheezing. ??? metoprolol (LOPRESSOR) 25 mg tablet Take 1 Tab by mouth 2 times daily. 180 Tab 4 Allergies Allergen Reactions ??? Penicillins Shortness Of [...] one son, Rickey, now 4 weeks old. ROS As per HPI; + knee pain R>L constant but worse with activity Objective: Physical Exam BP 130/90 Pulse 68 Ht 1.549 m (5' 1) Wt 98.884 kg (218 lb) LMP 03/09/2010 Gen:NAD, in good spirits HEENT: wnl Lungs:CTA Heart:RRR,noM Abd:soft,obese, NT/ND Ext:no c/c/e Lab Results Component Value Date/Time ??? CHOL 221 07/24/09 8:27 AM ??? HDL 49 07/24/09 8:27 AM ??? TRIG 175 07/24/09 8:27 AM ??? CHOLHDL 4.5 07/24/09 8:27 AM Assessment: 49 yo woman with severe OA to have R TKR in March; obesity, mild hypertension not currently on medication, hyperlipidemia, fibromyalgia Encounter Diagnoses Code Name Primary? Qualifier ??? 729.1AV Fibromyalgia Plan: PREGABALIN 25 MG CAP, AMB CONSULT PHYSICAL THERAPY ??? 715.90AN Osteoarthritis Plan: PREGABALIN 25 MG CAP, AMB CONSULT PHYSICAL THERAPY ??? 278.00M Obesity Plan: PREGABALIN 25 MG CAP, AMB CONSULT PHYSICAL THERAPY ??? 401.9AJ Hypertension Plan: METOPROLOL 25 MG TAB ??? 493.90AE Asthma Plan: PNEUMOCOCCAL POLYSACCHARIDE VACCINE 23-VALENT =>2YO SQ/IM Plan: OA -proceed with surgery per Ortho -refer to PT with aquatic option - to do before and after HTN -Begin metoprolol 25 mg bid and f/u post-operatively HLD -patient would like to try weight loss/diet before starting meds - will continue to monitor Obesity -refer to V trim program; monitor with f/u appts HCM -pneumovax updated today (last one over 5 years ago and administered for asthma) Asthma -stable; continue inhalers Remedios Strong M.D. Family Medicine Attending Bp# [id number] * Argelia Farias RN - 03/10/2010 1824 EDT Patient Education Topic: Pneumococcal Vaccine Method: Verbal Taught to: Patient Barriers: None Outcomes: verbalized understanding Signature: Argelia Farias RN documented in this encounter Plan of Treatment Scheduled Referrals Name Type Priority Associated Diagnoses Orde r Schedule AMB CONSULT PHYSICAL THERAPY Outpatient Referral Routine Obesity Osteoarthritis Fibromyalgia Ordered: 03/10/2010 documented as of this encounter Visit Diagnoses Diagnosis Fibromyalgia Mylagia and myositis, unspecified Osteoarthritis Osteoarthrosis, unspecified whether generalized or localized, unspecified site Obesity Obesity, unspecified Hypertension Unspecified essential hypertension Asthma Unspecified asthma documented in this encounter Discontinued Medications Medication Sig Discontinue Reason Start Date End Da te PREGABALIN (LYRICA ORAL) Take 1 Tab by mouth daily. One tablet nightly, does not remember dose Reorder 03/10/2010 documented as of this encounter Orders Immunization/Injection Count Last Ordered Date First Ordered Date PNEUMOCOCCAL POLYSACCHARIDE VACCINE 23-VALENT =>2YO SQ/IM 1 03/10/2010 documented in this encounter Care Teams Evaporator Relationship Specialty Start Date End Date Remedios Mehta MD [address] [place] [phone] PCP - General 02/19/09 01/04/15 documented as of this encounter
--- OUTSIDE RECORDS SUMMARY | 2024-06-24 02:25 | XMS_ITS | Encounter Summary ---
Author Organization [facility] Address [address] [place] [address] Care Team Providers Care Airport Attendant Name Role Phone Remedios Mehta MD Primary Care Provider [phone] Encounter Details Date Type Department Care Team (Latest Contact Info) Description 11/18/2009 Pre-Procedure Orders Encounter [facility] Medicine [address] [phone] Cathryn Garza, MARIA [address] [place] [phone] Dizziness - light-headed; Headache Social History [...] Headache documented in this encounter Care Teams Airport Attendant Relationship Specialty Start Date End Date Remedios Mehta MD [address] [place] [phone] PCP - General 02/19/09 01/04/15 documented as of this encounter
--- OUTSIDE RECORDS SUMMARY | 2024-06-24 02:25 | XMS_ITS | Encounter Summary ---
Author Organization Health system Address [address] [place] [address] Care Team Providers Care Sap Integration Architect Name Role Phone Remedios Mehta MD Primary Care Provider + [phone] Encounter Details Date Type Department Care Team (Late st Contact Info) Description 03/25/2010 Results Only [facility] Cancer [facility] Hematology & Oncology - [facility] [address], [place] [address] Joey Preciado [address] [place] [address] Social History Tobacco Use Types Packs/Day Years [...] Priority Date/Time Associated Diagnosis Comments RAD US EXTREMITY NON VASCULAR 06/22/2010 10:15 EDT THROMBOSIS PANEL PATIENT NOT ON COUMADIN Routine 03/25/2010 15:05 EDT FACTOR 11 ASSAY Routine 03/25/2010 15:05 EDT documented in this encounter Results * RAD US EXTREMITY NON VASCULAR (06/22/2010 10:15 EDT) Anatomical Region Laterality Modality Other 06/22/2010 10:1 5 EDT 06/22/2010 11:34 EDT Narrative 06/22/2010 11:34 EDT US EXTREMITY NON VASCULAR ??Jun 22, 2010 10:15:00 AM Signs and Symptoms/Comments: ??Rt knee pain, assess for Hall's cyst. ? Comparisons: None. Findings: The medial posterior right knee (the site of the patient's pain) was imaged and reveals a cystic structure measuring 2.5 x 0.9 x 2.9 cm. This is compatible with a Hall's cyst. Impression: 2.5 x 0.9 x 2.9 cm Hall's cyst. I have personally reviewed the images and the above interpretation and agree with the findings. Procedure Note Azra Rojas MD - 06/22/2010 US EXTREMITY NON VASCULAR Jun 22, 2010 10:15:00 AM Signs and Symptoms/Comments: Rt knee pain, assess for Hall's cyst. Comparisons: None. Findings: The medial posterior right knee (the site of the patient's pain) was imaged and reveals a cystic structure measuring 2.5 x 0.9 x 2.9 cm. This is compatible with a Hall's cyst. Impression: 2.5 x 0.9 x 2.9 cm Hall's cyst. I have personally reviewed the images and the above interpretation and agree with the findings. Conchita Garza NP [facility] US ORDERABLES * THROMBOSIS PANEL PATIENT NOT ON COUMADIN (03/25/2010 15:05 EDT) Pro Time 11.7 9.9 - 13.1 secs [facility] Comment:NOTE NEW REFERENC E RANGE EFFECTIVE 2010 I.N.R. 1.0 0.9 - 1.1 Ratio [facility] Comment: Moderate Intensity Coumadin INR = 2.0-3.0 Adjustments in anticoagulant therapy dose should be based upon the INR and NOT the Pro Time. D-Dimer <200 <230 ng/mL [facility] Comment: CUTOFF VALUE FOR THE EXCLUSION OF DVT and PE: 230 ng/mL Please note new reporting units and normal range effective 02/03/2010 PTT 32 24 - 35 secs [facility] Comment: Therapeutic Heparin range: ??60-90 seconds NOTE NEW REFERENCE RANGE EFFECTIVE 2010 NOTE: ??New Therapeutic Heparin range effective 02/03/2010 Patient PTT50 Test cancelled, normal APTT 20 - 35 secs [facility] CTRL 50/50 PTT Test cancelled, normal APTT secs [facility] Mix 50/50 PTT Test cancelled, normal APTT secs [facility] Factor 8 Assay 110 53 - 143 % [facility] Comment:NOTE NEW REFERENC E RANGE EFFECTIVE 2010 Protein S Activity 118 60 - 149 % [facility] Comment: Note new reference range. a. ??Acquired Protein S deficiencies are associated with oral anticoagulants, acute thrombotic events, , vitamin K deficiency, L-aspariginase treatment and inflammatory syndrome. Deficiencies may or may not be present with liver disease and DIC. b. ??Results may be affected by plasma heparin levels greater than 1.6U/mL for UFH or greater than 1.8 U/mL for LMWH. c. ??Results may be overestimated in the presence of direct thrombin inhibitors such as Hirudin (Refludan) and Argatroban (Novastan). d. ??Acute illness and/or thrombosis may influence test results in an unpredictable manner, therefore results should be interpreted with caution in this setting. e. ??Age and hormonal status may affect the normal range for females. Protein C Clot 116 74 - 187 % [facility] Comment: Note new reference range. a. ??Acquired Protein C deficiencies are associated with liver disease, oral anticoagulants, acute thrombotic events and DIC. b. ??Results may be affected by plasma heparin levels greater than 1.5 U/mL for UFH and 0.8 for LMWH. c. ??Results may be overestimated in the presence of direct thrombin inhibitors such as Hirudin (Refludan) and Argatroban (Novastan). d. ??Acute illness and/or thrombosis may influence test results in an unpredictable manner, therefore results should be interpreted with caution in this setting. Dilute Viper Venom 32.8 29.2 - 41.2 secs [facility] Comment: Results must be interpreted with caution if the patient is on oral ?anticoagulant, direct thrombin inhibitors or heparin. Note new reference range effective 10 Antithrombin, Funct. 88 85 - 125 % [facility] Comment: ?CAUTION: Antithrombin III levels can be ? INCREASED by coumadin and ? DECREASED by heparin. ? Results must be interpreted with ? caution for patients on these drugs. ?Results may be overestimated in the presence of direct thrombin inhibitors ?such as Hirudin (Refludan) and Argatroban (Novastan). ? Acute illness and/or thrombosis may influence test results in an ?unpredictable manner, therefore results should be interpreted with caution ?in this setting. Note new reference range effective 10 Sample retested, result confirmed IgM Cardiolipin Ab <4.0Unit: MPL Interpretation: Negative (<10.0 MPL) ? [facility] IgG Cardiolipin Ab <4.0Unit: GPL Interpretation: Negative (<10.0 GPL) ? Performed or Referred by: [facility] Path, [address] [facility], [place] [address], Lab Dir: Gianfranco Sun III, ? MD ? [facility] Factor V Leiden RESULT: ? The Factor V Leiden mutation was not detected. ? METHOD: ? The Factor V Leiden mutation is detected by amplification of DNA ? isolated from blood following by melt curve analysis ? INTERPRETATION: ? The Factor V Leiden mutation is not present. ?? A genetic cause of ? deep-vein thrombosis can not be excluded since there are many other ? disease causing mutations. ? As of October 30, 1998, [place] Act 160 prohibits release of genetic test ? results to third parties without the specific informed consent of the ? patient. ? TEST PERFORMED BY: ? [facility] ? [place] [facility] ? [address], [address] ? [place] [address] ? These results need to be interpreted in the context of the clinical ? presentation and the results of other laboratory tests. ??A ? consultation with a Children Counselor or Thrombosis Specialist may be of ? benefit for this individual and/or family to further discuss the ? implications of these findings. The results reported here are only as ? accurate as the identity of the sample received. ? This test is not an FDA- approved test, however it is based on the ? use of analyte-specific reagents that do not require FDA approval. ??A ? [place] statute prevents our laboratory from releasing these results ? to anyone other than the person who has been tested and the referring ? clinician without the prior written consent of the person tested. ? Leatha ??E. Mckeon, MD ? Clinical Director ? Diagnosis Code: ??289.81 ? [facility] Prothrombin Mutation RESULT: ? The Prothrombin L09099N mutation was not detected. ? METHOD: ? The Prothrombin V96381G mutation is detected by amplification of DNA ? isolated from blood following by melt curve analysis ? INTERPRETATION: ? The Prothrombin H31109R mutation is not present. ?? A genetic cause of ? deep-vein thrombosis can not be excluded since there are many other ? disease causing mutations. ? As of October 30, 1998, [place] Act 160 prohibits release of genetic test ? results to third parties without the specific informed consent of the ? patient. ? TEST PERFORMED BY: ? [facility] ? [place] [facility] ? [address], [address] ? [place] [address] ? These results need to be interpreted in the context of the clinical ? presentation and the results of other laboratory tests. ??A ? consultation with a Children Counselor or Thrombosis Specialist may be of ? benefit for this individual and/or family to further discuss the ? implications of these findings. The results reported here are only as ? accurate as the identity of the sample received. ? This test is not an FDA- approved test, however it is based on the ? use of analyte-specific reagents that do not require FDA approval. ??A ? [place] statute prevents our laboratory from releasing these results ? to anyone other than the person who has been tested and the referring ? clinician without the prior written consent of the person tested. ? Leatha ??Dangelo Mckeon MD ? Clinical Director ? Diagnosis Code: ??289.81 ? [facility] 03/25/2010 15:0 5 EDT 03/25/2010 15:06 EDT Joey Preciado PACKAGES & DNA PROBE ORDERABLES Performing Organization Address [facility] de Phone Number [facility] [address] [place] [address] * FACTOR 11 ASSAY (03/25/2010 15:05 EDT) Factor 11 Assay 95 62 - 145 % [facility] Comment:NOTE NEW REFERENC E RANGE EFFECTIVE 2010 03/25/2010 15:0 5 EDT 03/25/2010 15:06 EDT Joey Preciado HEMATOLOGY & PF4 ORD ERABLES Performing Organization Address [facility] de Phone Number [facility] [address] [place] [address] documented in this encounter Visit Diagnoses Not on filedocumented in this encounter Care Teams Sap Integration Architect Relationship Specialty Start Date End Date Remedios Mehta MD [address] [place] [phone] PCP - General 02/19/09 01/04/15 documented as of this encounter
--- OUTSIDE RECORDS SUMMARY | 2024-06-24 02:25 | XMS_ITS | Encounter Summary ---
Author Organization [facility] Address [address] [place] [address] Care Team Providers Care Dredge Pump Operator Name Role Phone Remedios Mehta MD Primary Care Provider [phone] Reason for Referral * Consult (Routine) - Closed Specialty Diagnoses / Procedures Referred By Joao proctor Referred To Contact Cardiology Diagnoses Dizziness - light-headed Headache(784.0) Atypical chest pain Cathryn Garza PA [address] [place] [address] [facility] Cardiology [address] [facility] [place] [address] Referral ID Status Reason Start Date Expiration Date V isits Requested Visits Authorized [id number] Closed Specialty Services Required 12/23/2009 1 1 Question Answer Reason for Request: atypical chest pain, dizziness, headache Comments Exercise tolerance test and ECHO completed October 2009. Encounter Details Date Type Department Care Team (Late st Contact Info) Description 12/23/2009 Orders Only [facility] Family Medicine [address] [phone] Cathryn Garza PA [address] [place], [place] [phone] Dizziness - light-headed; Headache; Atypical chest pain Social History Tobacco Use Types Packs/Day Years Used Date Smoking Tobacco: Never Assessed Sex and Gender Information Value Date Recorded Sex Assigned at Not on file Gender Identity Female 2021 11:19 EDT Sexual Orientation Not on file documented as of this encounter Plan of Treatment Scheduled Referrals Name Type Priority Associated Diagnoses Order Schedule AMB CONSULT CARDIOLOGY Outpatient Referral Routine Dizziness - Light-Headed Headache Atypical Chest Pain Ordered: 12/23/2009 documented as of this encounter Visit Diagnoses Diagnosis Dizziness - light-headed Dizziness and giddiness Headache(784.0) Headache Atypical chest pain Other chest pain documented in this encounter Care Teams Dredge Pump Operator Relationship Specialty Start Date End Date Remedios Mehta MD [address] [place] [phone] PCP - General 02/19/09 01/04/15 documented as of this encounter
--- OUTSIDE RECORDS SUMMARY | 2024-06-24 02:25 | XMS_ITS | Encounter Summary ---
Author Organization [facility] Address [address] [place] [address] Care Team Providers Care Pressure Welder Name Role Phone Remedios Mehta MD Primary Care Provider + [phone] Reason for Visit * Reason Comments Carpal Tunnel Left endoscopic CTR DOS 03/02/10 Encounter Details Date Type Department Care Team (Late st Contact Info) Description 03/15/2010 14:30 EDT Office Visit [facility] Hand & Upper Extremity Program - [address] [address] Jakub Black MD [address] [place] [phone] CTS (carpal tunnel syndrome) Social History Tobacco [...] on file documented as of this encounter Progress Notes * Jakub Black MD - 04/04/2010 1913 EDT ORTHOPAEDICS AND REHABILITATION SERVICES PROGRESS/FOLLOWUP NOTE - 03/15/2010 SUBJECTIVE: Ms. Husain is here in followup of her left endoscopic carpal tunnel release that was done on 03/02. At this point, she is doing well. She says the numbness in her hand is completely gone and she is very satisfied with that. OBJECTIVE: Physical examination shows that her wound has healed well. She has no evidence of infection or inflammation. Motion of her digit, wrist and elbow was full. Sensation in her hand was intact. Vascular supply was normal. PLAN: At this point, she is doing very well. She is to undergo a knee replacement in mid March and will most likely be rehabilitating from this procedure in the ensuing weeks. At this point, we decided to see her back on a p.r.n. basis with the idea that if she has a problem, she will be coming to this location for followup of her knee and we could always see her then. She was in agreement with that plan. Electronically Signed by Jakub Black MD 04/04/2010 19:13 Jakub Black MD [address] [place] [id number] - Jakub Black MD - TERE Job ID: SM Doc ID: [id number] Ext Doc ID: [id number] cc: * Jakub Black MD - 03/15/2010 1503 EDT This office note has been dictated. Review of Systems - Negative documented in this encounter Plan of Treatment Not on file documented as of this encounter Visit Diagnoses Diagnosis CTS (carpal tunnel syndrome) Carpal tunnel syndrome documented in this encounter Care Teams Pressure Welder Relationship Specialty Start Date End Date Remedios Mehta MD [address] [place] [phone] PCP - General 02/19/09 01/04/15 documented as of this encounter
--- OUTSIDE RECORDS SUMMARY | 2024-06-24 02:25 | XMS_ITS | Encounter Summary ---
Author Organization [facility] Address [address] [place] [address] Care Team Providers Care Clinical Pharmacist Name Role Phone Remedios Mehta MD Primary Care Provider [phone] Reason for Referral * Consult (Emergency) - Closed Specialty Diagnoses / Procedures Referred By Joao proctor Referred To Contact Orthopedic Surgery Diagnoses Right knee pain Remedios Mehta MD [address] [place] [phone] [place] [phone] Referral ID Status Reason Start Date Expiration Date V isits Requested Visits Authorized [id number] Closed Specialty Services Required 01/06/2010 1 1 Question Answer Reason for Request: right knee pain, bakers cyst Comments Gone 01/15 - 01/25; would love to be seen before if possible Reason for Visit * Reason Comments Cyst Hall's cyst - Right Knee Obesity Fibromyalgia Hypertension Encounter Details Date Type Department Care Team (Late st Contact Info) Description 01/06/2010 16:00 EST Office Visit [facility] Family Medicine [address] [address] Remedios Mehta MD [address] [place] [phone] Right knee pain (Primary Dx) Discharge Disposition: Auto Discharge Social [...] Reading Time Taken Comments Blood Pressure 110/70 01/06/2010 1621 EST Pulse 80 01/06/2010 1621 EST Temperature - - Respiratory Rate - - Oxygen Saturation - - Inhaled Oxygen Concentration - - Weight 100.2 kg (221 lb) 01/06/2010 1621 EST Height - - Body Mass Index - - documented in this encounter Patient Instructions * Patient Instructions* Remedios Strong MD - 01/06/2010 17:04 EST Patient Education Topic: [email or web address] Method: Verbal Taught to: Patient Barriers: None Outcomes: verbalized understanding Signature:AK documented in this encounter Discharge Disposition Disposition Code Departure Means Destination Auto Discharge documented in this encounter Progress Notes * Remedios Strong MD - 01/07/20108 EST Subjective: Patient ID: Cherelle Husain is an 49 y.o. female. Chief Complaint: HPI Pt c/o of a new lump behind right knee. Has had bilateral knee pain for a long time, but since noticing this lump has also had a significant increase in pain of right knee. Concerned because she wants to exercise for weight loss and this is a barrier. Other concern she wanted to discuss is her weight. Feels it negatively impacts her fibromyalgia andother health issues. Is frustrated. In the past did well with [employer]. No other new concerns or issues. Overall doing well. PMH/SH/FH/Meds/all all reviewed and updated Past Medical History Diagnosis Date ??? Fibromyalgia ??? Obesity ??? Asthma ??? Depression ??? Anxiety ??? GERD (gastroesophageal reflux disease) ??? Fibromyalgia ??? confirmed 1979,1982 2 vaginal deliveries Family History Problem Relation ??? Diabetes Mother ??? High Blood Pressure Father ??? High Cholesterol Father Current outpatient prescriptions Medication Sig Dispense Refill ??? PREGABALIN (LYRICA ORAL) Take by mouth daily. ??? loratadine (CLARITIN) 10 mg tablet Take 10 mg by mouth once daily. ??? zafirlukast (ACCOLATE) 20 mg tablet Take 20 mg by mouth 2 times daily. ??? pantoprazole (PROTONIX) 40 mg tablet Take 40 mg by mouth 2 times daily. ??? hydroxychloroquine (PLAQUENIL) 200 mg tablet Take 200 mg by mouth 2 times daily. ??? trazodone (DESYREL) 50 mg tablet Take 1-2 Tabs by mouth at bedtime as needed for Sleep. ??? fluticasone-salmeterol (ADVAIR DISKUS) 500-50 mcg/Dose diskus inhaler Inhale 1 Puff as directed2 times daily. ??? albuterol (PROVENTIL, VENTOLIN) 90 mcg/Actuation inhaler Inhale 2 Puffs as directed as needed for Wheezing. ??? CALCIUM CARBONATE/VITAMIN D3 (CALCIUM 600 WITH VITAMIN D3 ORAL) Take 600 mg by mouth 2 times daily. ??? MULTIVITAMINS (MULTIVITAMIN ORAL) Take 1 Tab by mouth daily. ??? duloxetine (CYMBALTA) 20 mg capsule Take 20 mg by mouth 3 times daily. ??? lovastatin (MEVACOR) 20 mg tablet Take 20 mg by mouth at bedtime. ??? lorazepam (ATIVAN) 0.5 mg Tab Take 0.5 mg by mouth as needed. ??? lubiprostone (AMITIZA) 24 mcg capsule Take 24 mcg by mouth 2 times daily with meals. ??? albuterol (ACCUNEB) 0.63 mg/3 mL nebulizer solution Take 0.63 mg by nebulization every 4 hours as needed for Wheezing. ??? albuterol-ipratropium (DUONEB) 0.5-2.5 mg/3 mL nebulizer solution Take 3 mL by nebulization every 4 hours as needed for Wheezing. Allergies Allergen Reactions ??? Penicillins ??? Codeine ??? Sulfa (Sulfonamide Antibiotics) ??? Aspirin ??? Egg/poultry History Social History ??? Marital Status: Single [...] History Narrative ??? No narrative on file ROS As per HPI Objective: Physical Exam BP 110/70 Pulse 80 Wt 100.245 kg (221 lb) Gen: NAD HEENT: normal oropharynx, MMM, normal TMs Lungs:CTA Heart:RRR,noM Abd:obese, NT,ND Ext: palpable and soft 3cm cyst behind right knee; full ROM of both knees/legs; no other findings Assessment: 49 yo woman with obesity,fibromyalgia,hypertension with a Hall's Cyst of the right knee and likelyunderlying arthritis Encounter Diagnoses Code Name Primary? Qualifier ??? 719.46AC Right knee pain Yes Plan: AMB CONSULT ORTHOPEDICS Plan: As above, referral to ortho. NSAIDs and quad strengthening discussed. Offered to refer to a cloud developer - declined. Reviewed diet/exercise - pt will sign up with [employer] and look into aquatic exercise Patient Education: Topic:Above Taught to: Patient Barriers:None Pt verbalized understanding ASK documented in this encounter Plan of Treatment Scheduled Referrals Name Type Priority Associated Diagnoses Order Schedule AMB CONSULT ORTHOPEDICS Outpatient Referral STAT Right Knee Pain Ordered: 01/06/2010 documented as of this encounter Visit Diagnoses Diagnosis Right knee pain- Primary Pain in joint, lower leg documented in this encounter Care Teams Clinical Pharmacist Relationship Specialty Start Date End Date Remedios Mehta MD [address] [place] [phone] PCP - General 02/19/09 01/04/15 documented as of this encounter
--- OUTSIDE RECORDS SUMMARY | 2024-06-24 02:25 | XMS_ITS | Encounter Summary ---
Author Organization [facility] Address [address] [place] [address] Care Team Providers Care Line Installer Name Role Phone Remedios Mehta MD Primary Care Provider + [phone] Encounter Details Date Type Department Care Team (Late st Contact Info) Description 11/18/2009 Orders Only [facility] Medicine [address] [phone] Cathryn Garza, MARIA [address] [place] [address] Social History Tobacco Use Types Packs/Day Years Used Date Smoking Tobacco: Never Assessed Sex and Gender Information Value Date Recorded Sex Assigned at Not on file Gender Identity Female 2021 11:19 EDT Sexual Orientation Not on file documented as of this encounter Plan of Treatment Not on file documented as of this encounter Visit Diagnoses Not on filedocumented in this encounter Care Teams Line Installer Relationship Specialty Start Date End Date Remedios Mehta MD [address] [place] [phone] PCP - General 02/19/09 01/04/15 documented as of this encounter
--- OUTSIDE RECORDS SUMMARY | 2024-06-24 02:25 | XMS_ITS | Encounter Summary ---
Author Organization [facility] Address [address] [place] [address] Care Team Providers Care Laboratory Operations Coordinator Name Role Phone Remedios Mehta MD Primary Care Provider [phone] Encounter Details Date Type Department Care Team (Late st Contact Info) Description 10/14/[address] [phone] Remedios Mehta MD [address] [place] [phone] Social History Tobacco Use Types Packs/Day [...] on filedocumented in this encounter Care Teams Laboratory Operations Coordinator Relationship Specialty Start Date End Date Remedios Mehta MD [address] [place] [phone] PCP - General 02/19/09 01/04/15 documented as of this encounter
--- OUTSIDE RECORDS SUMMARY | 2024-06-24 02:25 | XMS_ITS | Encounter Summary ---
Author Organization [facility] Address [address] [place] [address] Care Team Providers Care Tornado Chaser Name Role Phone Remedios Mehta MD Primary Care Provider [phone] Encounter Details Date Type Department Care Team (Latest Contact Info) Description 04/08/2010 16:37 EDT - 04/08/2010 23:59 EDT Hospital Encounter [facility] - [facility] [address], [place] [id number] Joey Preciado [address] [place] [address] Discharge Disposition: Home or Self Care Social [...] encounter Progress Notes * Inpatient, Physician - 04/24/2010 0343 EDT * Joey Preciado NP - 04/08/2010 0000 EDT DIVISION OF HEMATOLOGY / ONCOLOGY PROGRESS/FOLLOWUP NOTE - 04/08/2010 REASON FOR VISIT: Ongoing management of hypercoagulable syndrome in the setting of elective knee surgery 04/15/2010. Ms Husain with a distant history of deep vein thrombosis in the setting of . PAST MEDICAL HISTORY: 1. Hypercoagulable syndrome, right lower extremity DVT in the setting of childbirth. a. Thrombosis testing 03/25/2009, antithrombin function 88 , cardiolipin antibodies IgG, IgM negative, protein C 116, D-dimer < 200, dilute viper venom time 32.8. Factor VIII 110, factor V Leiden negative, prothrombin gene [id number] negative, PTT 32. Protein S 118, 2. Obesity. 3. Fibromyalgia. 4. Asthma. 5. Depression. 6. Anxiety. 7. GERD. 8. Irritable bowel syndrome. PAST SURGICAL HISTORY: Appendectomy at age 14. [place] tooth extraction at age 29. Carpal tunnel on the right age 33. Carpal tunnel on the left at age 49. OBSTETRIC HISTORY: Number of pregnancies 4. Live births 2. Miscarriage 1 at one month . One elective . Ms Husain took oral contraceptive pills from the mid 1970s to 1982. She could not recall the kind. She also took hormone replacement therapy off and on between 1999 and 2001. Shestopped taking these when her legs ???felt funny?? . HISTORY OF PRESENT ILLNESS: Ms Husain is a pleasant 49-year-old female with a past medical historysignificant for fibromyalgia, obesity, asthma, depression/anxiety and GERD. She has a distant history of thrombosis with her second . This occurred during the third trimester in 1982. Ms Husain was treated with a heparin drip. She does not recall any specific length of treatment afterwards. Ms Husain's 28-year daughter has had a significant history of 3 miscarriages with 1 live . She also experienced a DVT in her seventh month of . All this occurred in [place]. Ispoke with Ms Husain's daughter during my initial consultation with Ms Husain. Her daughter couldnot recollect being tested for protein C, protein S or factor V Leiden. All her daughter could recall was being tested for cardiolipin antibodies and that these were not detectable. Ms Husain was initially seen on 03/25/2010. At that time, the plan was to have a thrombosis panel drawn to see if this would affect her post treatment plan. She is here to review those results. ALLERGIES: The patient denies allergies to food, medicine or latex. CURRENT MEDICATIONS: Advair 500/50 twice per day. Accolate 200 mg b.i.d. Saline nasal spray p.r.n. Protonix 40 mg b.i.d. Trazodone 50 mg at bedtime. Plaquenil 200 mg b.i.d. Cymbalta 30 mg b.i.d. Calcium, vitamin D once per day. Albuterol p.r.n. Multivitamin tab once per day. Loratadine once per day. Lyrica daily. Metoprolol 25 mg b.i.d. Lorazepam 0.5 mg p.r.n. REVIEW OF SYSTEMS: A 10-point review of systems was reviewed by the patient and me and is documented in the chart. Pertinent negatives: No shortness of breath, no chest pain. Pertinent positives: Ongoing weight gain, difficulty sleeping, knee pain, ongoing legs and swelling, baseline shortness of breath with asthma. OBJECTIVE: Temperature today is 36.6, heart rate 70, blood pressure 134/73, respirations 16. Weightis 101.6 kilograms. Remainder of physical exam was deferred. Entire 30-minute clinic visit was spent counseling and reviewing thrombosis panel. LABORATORY DATA: 03/25/2010; As noted as thrombosis panel negative for any inherited or acquired thrombophia. ASSESSMENT: Ms Husain is a 50-year-old female who had an incident of thrombosis in the setting of . She has no further incidence of thrombosis since that time. Thrombosis testing was drawn on 03/25, which was negative for any acquired or inherited thrombophilia with a normal, but low antithrombin function. This may have been the cause of Ms Husain's initial DVT in 1982. Recommendations for surgery are basically unchanged from initial consultation on 03/25: 1. Day of surgery both before, during and after surgery, Ms Husain should wear pneumatic compression devices. She should also have early ambulation as soon as possible. 2. Eight to 12 hours after surgery, Ms Husain should receive Lovenox 30 mg subcutaneously x1. Day 1 postop, Ms Husain should start Lovenox 30 mg b.i.d. She should continue this for 30 days. 3. I will see Ms Husain approximately 2 to 4 weeks postop, at that time if she is ambulating to her baseline at 30 days she can discontinue her Lovenox. 4. Education. I reviewed the signs and symptoms of pulmonary embolism and deep vein thrombosis withMs Husain. I also reviewed the rationale for treating this aggressively in the setting of surgery.All of Ms Husain's questions were answered to her satisfaction. 5. Health maintenance. Based on Ms Husain's history of thrombosis, she should receive prophylaxis in any elective or nonelective surgery or significant periods of immobility. I also encouraged Ms Husain to resume her exercise program once her knee is feeling better and she is able to ambulate on a regular basis. 6. Followup. As noted, I will see Ms Husain 2 to 4 weeks postop. She was encouraged to call this office at any time with questions or concerns. Electronically Signed by Joey Preciado APRN 04/17/2010 13:30 Dictated by: Joey Preciado APRN - Joey Preciado APRN P - JG Job ID: SM Doc ID: [id number] Ext Doc ID: [id number] cc: MD Yonathan El MD Christine H Jones, MD Anya S Koutras, MD documented in this encounter Miscellaneous Notes * Scanned Note-Null - Inpatient, Physician - 05/31/2010 1049 EDT documented in this encounter Plan of Treatment Pending Results Name Type Priority Associated Diagnoses Date /Time GLUCOSE, GLUCOMETER Lab Routine 04/15 16:59 EDT Scheduled Orders Name Type Priority Associated Diagnoses Orde r Schedule GLUCOSE, GLUCOMETER Lab Routine For m edications that can be administered at any time during the hospitalization for visit such as immunizations. for 1 Occurrences starting 04/15/2010 documented as of this encounter Procedures Procedure Name Priority Date/Time Associated Diagnosis Comments GLUCOSE, GLUCOMETER Routine 04/15/2010 1 6:59 EDT documented in this encounter Results * GLUCOSE, GLUCOMETER (04/15/2010 16:59 EDT) [facility] Glucose, Fingerstick 100 70 - 100 mg/dl [facility] [employer] ID [id number] Test Performed by Nursing Services [facility] 04/15/2010 16:5 9 EDT 04/15/2010 17:01 EDT Yonathan Moreland MD CHEMISTRY & BL OOD GAS ORDERABLES [facility] [address] [place] [address] documented in this encounter Visit Diagnoses Not on filedocumented in this encounter Care Teams Tornado Chaser Relationship Specialty Start Date End Date Remedios Mehta MD [address] [place] [phone] PCP - General 02/19/09 01/04/15 documented as of this encounter
--- OUTSIDE RECORDS SUMMARY | 2024-06-24 02:25 | XMS_ITS | Encounter Summary ---
Author Organization [facility] Address [address] [place] [address] Care Team Providers Care Senior Materials Scientist Name Role Phone Remedios Mehta MD Primary Care Provider [phone] Encounter Details Date Type Department Care Team (Late st Contact Info) Description 10/07/[address] [id number] Remedios Mehta MD [address] [place] [phone] Social History Tobacco Use Types Packs/Day [...] filedocumented in this encounter Care Teams Senior Materials Scientist Relationship Specialty Start Date End Date Remedios Mehta MD [address] [place] [phone] PCP - General 02/19/09 01/04/15 documented as of this encounter
--- OUTSIDE RECORDS SUMMARY | 2024-06-24 02:25 | XMS_ITS | Encounter Summary ---
Author Organization [facility] Address [address] [place] [address] Care Team Providers Care Medical Instrument Cable Fabricator Name Role Phone Remedios Mehta MD Primary Care Provider [phone] Encounter Details Date Type Department Care Team (Latest Contact Info) Description 03/25/2010 14:31 EDT - 03/25/2010 23:59 EDT Hospital Encounter [facility] [address] [place] [address] Joey Preciado [address] [place] [address] Discharge Disposition: Auto Discharge Social History Tobacco [...] filedocumented in this encounter Care Teams Medical Instrument Cable Fabricator Relationship Specialty Start Date End Date Remedios Mehta MD [address] [place] [phone] PCP - General 02/19/09 01/04/15 documented as of this encounter
--- OUTSIDE RECORDS SUMMARY | 2024-06-24 02:25 | XMS_ITS | Encounter Summary ---
Author Organization [facility] Address [address] [place] [address] Care Team Providers Care Major Case Detective Name Role Phone Remedios Mehta MD Primary Care Provider + [phone] Encounter Details Date Type Department Care Team (Latest Contact Info) Description 02/10/2010 13:11 EDT - 02/10/2010 23:59 EDT Hospital Encounter [address] [place] [address] Griffin Stearns MD [address] [place] [phone] Discharge Disposition: Auto Discharge Social History [...] 5 02/03/2010 01/14/2011 hydroxychloroquine (PLAQUENIL) 200 mg tablet Take 200 [...] on filedocumented in this encounter Care Teams Major Case Detective Relationship Specialty Start Date End Date Remedios Mehta MD [address] [place] [phone] PCP - General 02/19/09 01/04/15 documented as of this encounter
--- OUTSIDE RECORDS SUMMARY | 2024-06-24 02:25 | XMS_ITS | Encounter Summary ---
Author Organization [facility] Address [address] [place] [address] Care Team Providers Care Title Abstractor Name Role Phone Remedios Mehta MD Primary Care Provider [phone] Reason for Visit * Reason Comments Knee Pain right Encounter Details Date Type Department Care Team (Late st Contact Info) Description 02/18/2010 11:30 EDT Office Visit [facility] Sports Medicine Program [place] [address] [place] [address] Heladio Medina MD [address] [place] [address] OA (osteoarthritis) of knee; Medial meniscus tear Social History Tobacco Use Types Packs/Day Years [...] - - Weight 98.9 kg (218 lb) 02/18/2010 1135 EDT Height 152.4 cm (5') 02/18/2010 1135 EDT Body Mass Index 42.58 02/18/2010 1135 EDT documented in this encounter Progress Notes * Heladio Medina MD - 02/23/2010 1524 EDT Sports Medicine Service [facility] [address] [place] [phone] PROGRESS/FOLLOWUP NOTE - 02/18/2010 REASON FOR VISIT: Cherelle is a new patient to see me today. I am seeing him in consultation for a right knee injury from [facility] and concern for surgery. She has had ongoing pain for the last six months or so. Six months was about the last time her kneefelt pretty good. She does state that she has had some pain in this knee over time, but it has never been as it is now and it really is significantly limiting her. She notes pain is mostly anterior and is also bothering her posteriorly. It does radiate some into the posterior aspect of her calf up in the upper aspect of the musculature behind the knee. She is unsure of the exact onset. She does not remember any trauma. She does have fibromyalgia. She does notice that this has been exacerbated of recent. She does note some popping and catching. She does not have any giving way. Her knee does lock on her at different times. REVIEW OF SYSTEMS: Please see the intake exam which is being scanned into the PRISM note. Past medical history, family history and social history have been scanned into the PRISM note. OBJECTIVE: Constitutional: is well groomed. Eyes reactive. Respiratory: No labored breathing. Psychiatric: Responsive to exam. Skin: Normal skin color. Neurologic: Sensation to soft touch is intact. Cardiovascular brisk capillary refill. Musculoskeletal exam observation: She stands in slight bit ofvarus. Palpation shows medial tenderness. Range of motion of the knee is 3 to 4 degrees loss of extension to about 120 of flexion. Strength; There is a definite antalgic gait today. has difficult time getting on and off the table. She has exquisite pain with movement of her knee. Palpation shows peripatellar tenderness, joint line tenderness on the medial side in the medial femur. It is very difficult to do any significant provocative test due to the amount of pain in her knee. IMAGING: I reviewed her MRI with her and her x-rays, she has substantial arthritis specifically in the patellofemoral and medial joint of her knee. MRI also was consistent with this. She also has a loose body and probably an extruded medial meniscus and medial meniscus tear. ASSESSMENT AND PLAN: We talked at great length about operative and nonoperative management of this including operative management of a knee arthroscopy versus a knee replacement. I did tell her that due to the amount of arthritis in her knee and the amount of pain that she has had for the last six months it is unlikely that a knee arthroscopy will bring her permanent pain relief for long-term pain relief. I felt that I could only help her by preventing some of the locking symptoms that might beattributed to a loose body or the cartilage that is floating in her knee and could help with a partial medial meniscectomy. She was very concerned that this might lead to a second and larger surgery needing a knee replacement and really wants more information about a knee replacement. My suggestion is that she then meets with the recon service and can talk about the pluses and minuses of both a knee arthroscopy and a total knee arthroplasty. We did talk about a staged approach where she underwent a knee arthroscopy first, to help address some of the lesser issues in her knee andsee how did. She is interested in that idea but clearly wants to talk to the recon specialist. We did discuss the surgical procedure, the risks and the benefits, she did understand them as far as a knee arthroscopy is concerned. We will see her back on an as needed basis after she sees the recon service. If she chooses to have a knee arthroscopy in the interim, she could be set up for that. Electronically Signed by Heladio Medina MD 02/23/2010 15:24 Heladio Medina MD - Heladio Medina MD - EVELYN Job ID: Doc ID: [id number] [facility] Doc ID: [id number] cc: * Heladio Medina MD - 02/18/2010 1205 EDT This office note has been dictated. documented in this encounter Plan of Treatment Not on file documented as of this encounter Visit Diagnoses Diagnosis OA (osteoarthritis) of knee Osteoarthrosis, unspecified whether generalized or localized, lower leg Medial meniscus tear Tear of medial cartilage or meniscus of knee, current documented in this encounter Care Teams Title Abstractor Relationship Specialty Start Date End Date Remedios Mehta MD [address] [place] [phone] PCP - General 02/19/09 01/04/15 documented as of this encounter
--- OUTSIDE RECORDS SUMMARY | 2024-06-24 02:25 | XMS_ITS | Encounter Summary ---
Author Organization [facility] Address [address] [place] [address] Care Team Providers Care Follow Up Specialist Name Role Phone Remedios Mehta MD Primary Care Provider [phone] Encounter Details Date Type Department Care Team (Late st Contact Info) Description 10/26/2009 Abstract [facility] [place] [address] [place] [address] Remedios Mehta MD [address] [place] [phone] Social History Tobacco Use Types Packs/Day [...] Sig Dispensed Refills Start Date End Date lorazepam (ATIVAN) 0.5 mg Tab Take 0.5 mg by mouth as needed. 03/05/2012 added in this encounter Care Teams Follow Up Specialist Relationship Specialty Start Date End Date Remedios Mehta MD [address] [place] [phone] PCP - General 02/19/09 01/04/15 documented as of this encounter
--- OUTSIDE RECORDS SUMMARY | 2024-06-24 02:25 | XMS_ITS | Encounter Summary ---
Author Organization [facility] Address [address] [place] [address] Care Team Providers Care Horses Or Mules Teamster Name Role Phone Remedios Mehta MD Primary Care Provider [phone] Encounter Details Date Type Department Care Team (Late st Contact Info) Description 01/04/2010 Abstract [facility] Cardiology - [address] [facility] [place] [address] Remedios Mehta MD [address] [place] [phone] Social History Tobacco Use Types Packs/Day [...] Sig Dispensed Refills Start Date End Date lovastatin (MEVACOR) 20 mg tablet Take 20 mg by mouth at bedtime. 01/26/2010 added in this encounter Care Teams Horses Or Mules Teamster Relationship Specialty Start Date End Date Remedios Mehta MD [address] [place] [phone] PCP - General 4/23/09 3/8/15 documented as of this encounter
--- OUTSIDE RECORDS SUMMARY | 2024-06-24 02:25 | XMS_ITS | Encounter Summary ---
Author Organization [facility] Address [address] [place] [address] Care Team Providers Care International Tax Manager Name Role Phone Remedios Mehta MD Primary Care Provider [phone] Reason for Visit * Reason Onset Date Comments Pre-op Exam 03/15/2010 Right Total Knee Arthroplasty DOS 6.17.10 Encounter Details Date Type Department Care Team (Late st Contact Info) Description 03/15/2010 Orders Only [facility] Total Joint Program - [address] [place] [address] Yonathan Moreland MD Other specified pre-operative examination; Loc osteoarth NOS-l/leg; Pain in joint, lower leg Social History Tobacco Use Types Packs/Day [...] documented as of this encounter Results * CULTURE IF UA POSITIVE (03/23/2010 14:53 EDT) Culture if Indicated Culture not indicated by urinalysis results. [facility] Urine specimen (specimen) 03/23/2010 14:53 EDT 03/23/2010 14:55 EDT Conchita Garza NP MICROBIOLOGY - GENER AL ORDERABLES Performing Organization Address City/[facility]/ZIP Co de Phone Number [facility] [address] [place] [address] * URINALYSIS (03/23/2010 14:53 EDT) Color, UA Yellow [facility] Clarity, UA Clear [facility] Glucose, UA Neg NEG [facility] Bilirubin, UA Neg NEG [facility] Ketones, UA Neg NEG [facility] Specific [place], Urine >1.030 1.001 - 1.035 [facility] Blood, UA Neg NEG [facility] pH, UA 6.0 4.6 - 8.0 [facility] Protein, UA Neg NEG [facility] Urobilinogen, UA 0.2 0.2 - 1.0 E.U./dl [facility] Nitrite, UA Neg NEG [facility] Leuk Esterase Neg NEG [facility] Refractometer SG,Urine 1.026 1.001 - 1.035 [facility] Urine specimen (specimen) 03/23/2010 14:53 EDT 03/23/2010 14:55 EDT Conchita Garza NP URINALYSIS ORDERABLE S Performing Organization Address City/[facility]/ZIP Co de Phone Number [facility] [address] [place] [address] * BASIC METABOLIC PANEL (03/23/2010 14:53 EDT) Sodium 139 136 - 145 mEq/L [facility] Potassium 4.3 3.5 - 5.0 mEq/L [facility] Chloride 104 96 - 110 mEq/L [facility] CO2 25 24 - 32 mEq/L [facility] BUN 16 10 - 26 mg/dl [facility] Creatinine 0.73 0.7 - 1.5 mg/dl [facility] [...] BLOOD GA S ORDERABLES Performing Organization Address City/State/[facility] Co de Phone Number [facility] [address] [place] [address] * (ABNORMAL) HEMAGRAM AND DIFFERENTIAL (03/23/2010 14:53 [...] ABS Basophils 0.14(H) 0.01 - 0.11 K/cmm [facility] Type of Diff: Automated [facility] Blood specimen (specimen) 03/23/2010 14:53 EDT 03/23/2010 14:54 EDT Conchita Garza PHARMACY AFFAIRS ASSISTANT PACKAGES & DNA PROBE ORDERABLES [facility] [address] [place] [address] documented in this encounter Visit Diagnoses Diagnosis Other specified pre-operative examination Localized osteoarthrosis not specified whether primary or secondary, lower leg Pain in joint, lower leg documented in this encounter Care Teams International Tax Manager Relationship Specialty Start Date End Date Remedios Mehta MD [address] [place] [phone] PCP - General 02/19/09 01/04/15 documented as of this encounter
--- OUTSIDE RECORDS SUMMARY | 2024-06-24 02:26 | XMS_ITS | Encounter Summary ---
Author Organization [facility] Address [address] [place] [address] Care Team Providers Care Radiology Aide Name Role Phone Unavailable Primary Care Provider Unavailabl e Encounter Details Date Type Department Care Team (Late st Contact Info) Description 02/13/2007 9:31 EDT Hospital Encounter [facility] [place] conversion [address] [place] [address] Elise Valle, SUPERVISOR [employer] [address] [place] [phone] Social History Tobacco Use Types [...] 10:30 EDT documented as of this encounter Plan of [...]
--- OUTSIDE RECORDS SUMMARY | 2024-06-24 02:26 | XMS_ITS | Encounter Summary ---
Author Organization [facility] Address [address] [place] [address] Care Team Providers Care Foot Press Operator Name Role Phone Remedios Mehta MD Primary Care Provider [phone] Encounter Details Date Type Department Care Team (Late st Contact Info) Description 06/12/2009 Orders Only [facility] Family Medicine [address] [id number] Manasa Luciano PA-C [address] [facility] [address] [place] [address] Social History Tobacco Use Types Packs/Day Years Used Date Smoking Tobacco: Never Assessed Sex and Gender Information Value Date Recorded Sex Assigned at Not on file Gender Identity Female 2021 11:19 EDT Sexual Orientation Not on file documented as of this encounter Plan of Treatment Not on file documented as of this encounter Procedures Procedure Name Priority Date/Time Associated Diagnosis Comments RAD US BREAST BILATERAL - TWO BREASTS 06/12/2009 15:34 EDT CHITRA DX YELENA DIG EMERGENCY 06/12/2009 14:08 EDT documented in this encounter Results * RAD US BREAST BILATERAL - TWO BREASTS (06/12/2009 15:34 EDT) Anatomical Region Laterality Modality Other 06/12/2009 15:3 4 EDT 06/13/2009 0:37 EDT Narrative 06/13/2009 0:37 EDT Procedure: Bilateral diagnostic digital mammogram and bilateral breast ultrasound 06/12/2009. History: Patient has a lump in the left 9 o'clock position and an area of the pain extending from the right axilla to the 10 o'clock position. Comparison: Prior mammograms 02/09/2007 dating back to 2003. Limited right axillary ultrasound 04/10/2000 that was performed for right axillary lump and pain and was negative. Right breast findings: CC and MLO views with CAD were performed, and as well as magnified CC and true lateral views. Breast tissue is almost entirely fatty. Two triangular markers are placed at the lowest extent of the patient's pain in the upper-outer quadrant at approximately 10:00. There is a focal area of glandular tissue in the upper-outer quadrant near the markers, which is unchanged. There are no masses, areas of architectural distortion or suspicious calcifications. Ultrasound of the right axilla down to the 10:00 region was performed, showing no abnormalities. Normal nodes are identified in the axilla, but it did appear that one of the nodes was tender. The patient states she has had a recent illness. Left breast findings: CC and MLO views with CAD were performed as well as magnified CC and true lateral views and ultrasound. The breast tissue is almost entirely fatty. The triangular marker was placed on the 9 o'clock position in the area of the lump. This area is entirely fatty. Scant fibroglandular tissue is seen in the upper-outer quadrant, stable. There are no masses, areas of architectural distortion or suspicious calcifications. The lower inner quadrant of the left breast was scanned, seeing only normal lobules of fat. Impression right breast: BI-RADS category 1-negative. 1. No abnormal findings. One of the axillary lymph nodes appears to be tender but it has a normal morphologic appearance. 2. Clinical followup is recommended. 3. Yearly screening mammography is recommended. Impression left breast: BI-RADS category 1-negative. 1. No abnormal findings. 2. Clinical followup is recommended. 3. Yearly screening mammography is recommended. 4. ??Results and recommendations were discussed with the patient by the orthotics technician at the time of the examination. Overall assessment: Negative. The patient will also be notified of her/his breast imaging results via a lay letter from Radiology. Radiology will contact the patient directly regarding any findings which require additional imaging (Category 0) at this time. Procedure Note 06/13/2009 Procedure: Bilateral diagnostic digital mammogram and bilateral breast ultrasound 06/12/2009. History: Patient has a lump in the left 9 o'clock position and an area of the pain extending from the right axilla to the 10 o'clock position. Comparison: Prior mammograms 02/09/2007 dating back to 2003. Limited right axillary ultrasound 04/10/2000 that was performed for right axillary lump and pain and was negative. Right breast findings: CC and MLO views with CAD were performed, and as well as magnified CC and true lateral views. Breast tissue is almost entirely fatty. Two triangular markers are placed at the lowest extent of the patient's pain in the upper-outer quadrant at approximately 10:00. There is a focal area of glandular tissue in the upper-outer quadrant near the markers, which is unchanged. There are no masses, areas of architectural distortion or suspicious calcifications. Ultrasound of the right axilla down to the 10:00 region was performed, showing no abnormalities. Normal nodes are identified in the axilla, but it did appear that one of the nodes was tender. The patient states she has had a recent illness. Left breast findings: CC and MLO views with CAD were performed as well as magnified CC and true lateral views and ultrasound. The breast tissue is almost entirely fatty. The triangular marker was placed on the 9 o'clock position in the area of the lump. This area is entirely fatty. Scant fibroglandular tissue is seen in the upper-outer quadrant, stable. There are no masses, areas of architectural distortion or suspicious calcifications. The lower inner quadrant of the left breast was scanned, seeing only normal lobules of fat. Impression right breast: BI-RADS category 1-negative. 1. No abnormal findings. One of the axillary lymph nodes appears to be tender but it has a normal morphologic appearance. 2. Clinical followup is recommended. 3. Yearly screening mammography is recommended. Impression left breast: BI-RADS category 1-negative. 1. No abnormal findings. 2. Clinical followup is recommended. 3. Yearly screening mammography is recommended. 4. Results and recommendations were discussed with the patient by the orthotics technician at the time of the examination. Overall assessment: Negative. The patient will also be notified of her/his breast imaging results via a lay letter from Radiology. Radiology will contact the patient directly regarding any findings which require additional imaging (Category 0) at this time. Manasa Luciano PA-C IMG US ORDE NEIL * CHITRA DX YELENA DIG EMERGENCY (06/12/2009 14:08 EDT) Anatomical Region Laterality Modality Other 06/12/2009 14:0 8 EDT 06/13/2009 0:37 EDT Narrative 06/13/2009 0:37 EDT Procedure: Bilateral diagnostic digital mammogram and bilateral breast ultrasound 06/12/2009. History: Patient has a lump in the left 9 o'clock position and an area of the pain extending from the right axilla to the 10 o'clock position. Comparison: Prior mammograms 02/09/2007 dating back to 2003. Limited right axillary ultrasound 04/10/2000 that was performed for right axillary lump and pain and was negative. Right breast findings: CC and MLO views with CAD were performed, and as well as magnified CC and true lateral views. Breast tissue is almost entirely fatty. Two triangular markers are placed at the lowest extent of the patient's pain in the upper-outer quadrant at approximately 10:00. There is a focal area of glandular tissue in the upper-outer quadrant near the markers, which is unchanged. There are no masses, areas of architectural distortion or suspicious calcifications. Ultrasound of the right axilla down to the 10:00 region was performed, showing no abnormalities. Normal nodes are identified in the axilla, but it did appear that one of the nodes was tender. The patient states she has had a recent illness. Left breast findings: CC and MLO views with CAD were performed as well as magnified CC and true lateral views and ultrasound. The breast tissue is almost entirely fatty. The triangular marker was placed on the 9 o'clock position in the area of the lump. This area is entirely fatty. Scant fibroglandular tissue is seen in the upper-outer quadrant, stable. There are no masses, areas of architectural distortion or suspicious calcifications. The lower inner quadrant of the left breast was scanned, seeing only normal lobules of fat. Impression right breast: BI-RADS category 1-negative. 1. No abnormal findings. One of the axillary lymph nodes appears to be tender but it has a normal morphologic appearance. 2. Clinical followup is recommended. 3. Yearly screening mammography is recommended. Impression left breast: BI-RADS category 1-negative. 1. No abnormal findings. 2. Clinical followup is recommended. 3. Yearly screening mammography is recommended. 4. ??Results and recommendations were discussed with the patient by the orthotics technician at the time of the examination. Overall assessment: Negative. The patient will also be notified of her/his breast imaging results via a lay letter from Radiology. Radiology will contact the patient directly regarding any findings which require additional imaging (Category 0) at this time. Procedure Note 06/13/2009 Procedure: Bilateral diagnostic digital mammogram and bilateral breast ultrasound 06/12/2009. History: Patient has a lump in the left 9 o'clock position and an area of the pain extending from the right axilla to the 10 o'clock position. Comparison: Prior mammograms 02/09/2007 dating back to 2003. Limited right axillary ultrasound 04/10/2000 that was performed for right axillary lump and pain and was negative. Right breast findings: CC and MLO views with CAD were performed, and as well as magnified CC and true lateral views. Breast tissue is almost entirely fatty. Two triangular markers are placed at the lowest extent of the patient's pain in the upper-outer quadrant at approximately 10:00. There is a focal area of glandular tissue in the upper-outer quadrant near the markers, which is unchanged. There are no masses, areas of architectural distortion or suspicious calcifications. Ultrasound of the right axilla down to the 10:00 region was performed, showing no abnormalities. Normal nodes are identified in the axilla, but it did appear that one of the nodes was tender. The patient states she has had a recent illness. Left breast findings: CC and MLO views with CAD were performed as well as magnified CC and true lateral views and ultrasound. The breast tissue is almost entirely fatty. The triangular marker was placed on the 9 o'clock position in the area of the lump. This area is entirely fatty. Scant fibroglandular tissue is seen in the upper-outer quadrant, stable. There are no masses, areas of architectural distortion or suspicious calcifications. The lower inner quadrant of the left breast was scanned, seeing only normal lobules of fat. Impression right breast: BI-RADS category 1-negative. 1. No abnormal findings. One of the axillary lymph nodes appears to be tender but it has a normal morphologic appearance. 2. Clinical followup is recommended. 3. Yearly screening mammography is recommended. Impression left breast: BI-RADS category 1-negative. 1. No abnormal findings. 2. Clinical followup is recommended. 3. Yearly screening mammography is recommended. 4. Results and recommendations were discussed with the patient by the orthotics technician at the time of the examination. Overall assessment: Negative. The patient will also be notified of her/his breast imaging results via a lay letter from Radiology. Radiology will contact the patient directly regarding any findings which require additional imaging (Category 0) at this time. Manasa Luciano PA-C IMG MAMMOGR APHY ORDERABLES documented in this encounter Visit Diagnoses Not on filedocumented in this encounter Care Teams Foot Press Operator Relationship Specialty Start Date End Date Remedios Mehta MD [address] [place] [phone] PCP - General 02/19/09 01/04/15 documented as of this encounter
--- OUTSIDE RECORDS SUMMARY | 2024-06-24 02:26 | XMS_ITS | Encounter Summary ---
Author Organization [facility] Address [address] [place] [address] Care Team Providers Care Isotope Hydrologist Name Role Phone Unavailable Primary Care Provider Unavailabl e Encounter Details Date Type Department Care Team (Late st Contact Info) Description 12/22/2005 15:42 EST Hospital Encounter [facility] [address] [place] [address] Yovana Callejas MD [address] [place] [address] [phone] Discharge Disposition: Auto Discharge Social History Tobacco Use Types Packs/Day Years Used Date Smoking Tobacco: Never Assessed Sex and Gender Information Value Date Recorded Sex Assigned at Not on file Gender Identity Female 2021 11:19 EDT Sexual Orientation Not on file documented as of this encounter Discharge Disposition Disposition Code Departure Means Destination Auto Discharge documented in this encounter Plan of Treatment Not on file documented as of this encounter Visit Diagnoses Not on filedocumented in this encounter
--- OUTSIDE RECORDS SUMMARY | 2024-06-24 02:26 | XMS_ITS | Encounter Summary ---
Author Organization [facility] Address [address] [place] [address] Care Team Providers Care Direct Service Worker Name Role Phone Unavailable Primary Care Provider Unavailabl e Encounter Details Date Type Department Care Team (Latest Contact Info) Description 07/31/2006 11:45 EDT - 07/31/2006 11:59 EDT Hospital Encounter [facility] [place] [facility] [address] [place] [address] Remedios Mehta MD [address] [place] [phone] Discharge Disposition: Auto Discharge Social History [...]
--- OUTSIDE RECORDS SUMMARY | 2024-06-24 02:26 | XMS_ITS | Encounter Summary ---
Author Organization [facility] Address [address] [place] [address] Care Team Providers Care Educational Psychology Teacher Name Role Phone Unavailable Primary Care Provider Unavailabl e Encounter Details Date Type Department Care Team (Late st Contact Info) Description 02/09/2009 11:02 EDT Hospital Encounter [facility] [place] [facility] [address] [place] [address] Cathryn Garza, PA [address] [place], [place] [id number] Social History Tobacco Use Types Packs/Day Years [...] Blood Pressure Asthma 133/57(2020 14:39 EDT) No Eimly Gibson LPN LDL < 130 Result Component [...]
--- OUTSIDE RECORDS SUMMARY | 2024-06-24 02:26 | XMS_ITS | Encounter Summary ---
Author Organization [facility] Address [address] [place] [address] Care Team Providers Care Window Display Designer Name Role Phone Unavailable Primary Care Provider Unavailabl e Encounter Details Date Type Department Care Team (Late st Contact Info) Description 12/11/2006 10:03 EST - 12/11/2006 11:59 EST Hospital Encounter [facility] [address] [place] [address] Yovana Callejas MD [address] [place] [address] [phone] Discharge Disposition: Auto Discharge Social History Tobacco [...]
--- OUTSIDE RECORDS SUMMARY | 2024-06-24 02:26 | XMS_ITS | Encounter Summary ---
Author Organization [facility] Address [address] [place] [address] Care Team Providers Care Cloth Painter Name Role Phone Unavailable Primary Care Provider Unavailabl e Encounter Details Date Type Department Care Team (Late st Contact Info) Description 08/31/2005 14:45 EST Hospital Encounter [facility] [address] [place] [address] David Rehman MD [address] [facility] [place] [address] Social History Tobacco Use Types Packs/Day Years [...]
--- OUTSIDE RECORDS SUMMARY | 2024-06-24 02:26 | XMS_ITS | Encounter Summary ---
Author Organization [facility] Address [address] [place] [address] Care Team Providers Care Bonding Supervisor Name Role Phone Remedios Mehta MD Primary Care Provider [phone] Encounter Details Date Type Department Care Team (Late st Contact Info) Description 10/06/2005 Before PRISM Converted Visit ([facility]) [facility] [place] [facility] [address] [place] [address] Yovana Callejas MD [address] [place] [address] [phone] Social History Tobacco Use Types Packs/Day Years Used Date Smoking Tobacco: Never Assessed Sex and Gender Information Value Date Recorded Sex Assigned at Not on file Gender Identity Female 2021 11:19 EDT Sexual Orientation Not on file documented as of this encounter Progress Notes * Yovana Callejas MD - 12/31/2009 0350 EST DIVISION OF RHEUMATOLOGY PROGRESS/FOLLOWUP NOTE - 10/06/2005 CHIEF COMPLAINT ID: Here in followup of arthralgias, inflammatory arthritis. SUBJECTIVE: Having difficulty with hands, right hand in particular with a burning sensation sometimes waking her up at night, also some weakness in the right hand. Symptoms are worse with repetitive use and worse in the morning. There is some stiffness as well. She has been in physical [place] for her myofascial pain syndrome and these symptoms have improved. She is still experiencing some burning in her lateralthighs. She is trying to exercise and maintain her weight loss and is very pleased with the overall results. For pain relief she has been taking some nabumetone but does not think it is working and wonders if other treatment options are available. SOCIAL HISTORY: Recently , living on her own, and works full-time. PAST MEDICAL HISTORY: 1. Asthma. 2. Anxiety. 3. Insomnia. 4. Myalgias. MEDICATIONS: 1. Zelnorm 6 mg daily. 2. Advair. 3. Accolate 20 mg twice daily. 4. Calcium. 5. Albuterol p.r.n. 6. Plaquenil 200 mg twice daily. 7. Protonix 40 mg twice daily. 8. Trazodone 75 mg at night. ALLERGIES: She is intolerant or allergic to penicillin, aspirin, codeine, and Sulfa. REVIEW OF SYSTEMS: She reports improving sleep with the use of trazodone and is pleased with maintaining low weight. Back pain is improved with use of a hot tub at home. RESPIRATORY: Asthma has been well controlled. GI: Some increase in reflux lately. PSYCHIATRIC: Mood has improved since her divorce wentthrough. HEENT: No difficulty with ulcers or vision. : She has difficulty with persistent menses. Menopause evaluation is ongoing in gynecology clinic. Remainder of review of systems unremarkable. PHYSICAL EXAM: A pleasant woman. Weight 192 pounds. BP 116/66. Pulse 76. Respiratory rate 12. Pain is present throughout, a 4- 5/10. SKIN: No pathologic lesions on extremities, scalp or trunk. HEENT:No ocular inflammation or oral ulcers. Chest is clear to auscultation. CARDIAC: Regular rate andrhythm. Symmetric radial pulses. Abdomen soft, nontender, nondistended. Gait is within normal limits. NEUROLOGIC: 5/5 hand integrity assessor, shoulder abduction, and hip flexion. On joint exam there is no synovitis and preservation of range of motion of the joints of the upper extremities. She has a positive Ring test on the right, some thenar atrophy on the right as well, positive Tinel. Palpation over the cubital tunnel does not reproduce her symptoms. Myofascial tender points are present. IMPRESSION: 1. Right carpal tunnel syndrome. 2. Myalgias, no evidence of inflammatory arthritis on exam today. PLAN: 1.tunnel syndrome. Will fit her with a brace. Will start her on Lyrica 75 mg twice daily to reduce pain. If weakness continues, may have to reconsider EMG versus carpal tunnel release - patient will contact me. 2. Myalgias. Reassured her no evidence of infective inflammatory arthritis today. Trial of Lyrica to improve arthralgias. Encouraged persistent exercise. 3. History of asthma. Flu shot provided, as patient is at increased risk for serious infection. 4. Follow up in three months' time. Signed by Yovana Callejas MD 10/17/2005 17:08 [facility] Cal[facility] Yovana Callejas MD - Yovana Callejas MD A - o15 Job ID: [id number] Document ID: [id number] cc: Remedios Strong MD documented in this encounter Plan of Treatment Not on file documented as of this encounter Visit Diagnoses Not on filedocumented in this encounter Care Teams Bonding Supervisor Relationship Specialty Start Date End Date Remedios Mehta MD [address] [place] [phone] PCP - General 02/19/09 01/04/15 documented as of this encounter
--- OUTSIDE RECORDS SUMMARY | 2024-06-24 02:26 | XMS_ITS | Encounter Summary ---
Author Organization [facility] Address [address] [place] [address] Care Team Providers Care Parachute Accessories Attacher Name Role Phone Remedios Mehta MD Primary Care Provider + [phone] Encounter Details Date Type Department Care Team (Late st Contact Info) Description 12/22/2005 Before PRISM Converted Visit ([place]) [facility] [place] [facility] [address] [place] [address] Yovana Callejas MD [address] [place] [address] [address] [place] [phone] Social History Tobacco Use Types Packs/Day Years Used Date Smoking Tobacco: Never Assessed Sex and Gender Information Value Date Recorded Sex Assigned at Not on file Gender Identity Female 2021 11:19 EDT Sexual Orientation Not on file documented as of this encounter Progress Notes * Yovana Callejas MD - 12/31/2009 2222 EST DIVISION OF RHEUMATOLOGY PROGRESS/FOLLOWUP NOTE - 12/22/2005 Chief Complaint ID: Here in follow-up of fibromyalgia and inflammatory arthritis. S: Complains of being achy and sore all over. Pains 3-5/10. Nabumetone did not help so she stopped it. She tried Lyrica but it made her sick. Nothing seems to relieve her pain. Wishes she could have Bextra again because that seems to be more effective. Asthma remains stable. She has had no further rashes or bruising and was evaluated in hematology and felt to be not of any consequence. Past Medical History: 1. Asthma. 2. Depression. 3. Reflux disease. 4. Insomnia. Medications: 1. Plaquenil 200 mg twice a day. 2. Zelnorm for irritable bowel syndrome. 3. Advair for asthma. 4. Accolade for asthma. 5. Calcium. 6. Albuterol as needed for asthma. 7. Trazodone 50 mg at night for insomnia. 8. Protonix for reflux disease. 9. Medroxyprogesterone for dysfunctional uterine bleeding. 10. Loratadine. Review of Systems: On review of systems psychosocial stressors have improved. Financial situation is stabilizing. No current difficulty with breathing, stomach upset is fine, no recent skin rashes and no other complaints on a complete rheumatologicreview of systems. O: On examination, blood pressure 106/70, pulse 80, respirations 14, weight 198 pounds. Pain 2.5/10. Eyes: Skin: No pathologic lesions over extremities. HEENT: No ocular inflammation or oral ulcers. Chest: Clear to auscultation. Cardiac exam: Regular rate and rhythm, symmetric radial pulses. Abdomen: Obese, soft, and nontender. Gait: Within normal limits. Neurologic: Hand break off worker 5/5, shoulder abduction 5/5 and hip flexion 5/5. Psychiatric: ??. Joint exam: Osteoarthritic changes over the DIPsand PIPs. No synovitis and preservation of range of motion. Myofascial tender sites are present. A: 1. Osteoarthritis likely contributing to increased hand pain. 2. Myofascial pain. P: 1. Trial of Voltaren plus misoprostol. Side effects discussed with patient and if this is ineffective might try other nonsteroidals. 2. Continue to work on exercise and improving sleep and control of psychosocial stressors. 3. Follow-up as needed. Signed by Yovana Callejas MD 12/27/2005 14:13 yMron Callejas, Jens Callejas MD Yovana Callejas MD - Yovana Callejas MD A - AM Job ID: [id number] Document ID: [id number] cc: Remedios Strong MD cc: Remedios Strong MD documented in this encounter Plan of Treatment Not on file documented as of this encounter Visit Diagnoses Not on filedocumented in this encounter Care Teams Parachute Accessories Attacher Relationship Specialty Start Date End Date Remedios Mehta MD [address] [place] [phone] PCP - General 02/19/09 01/04/15 documented as of this encounter
--- OUTSIDE RECORDS SUMMARY | 2024-06-24 02:26 | XMS_ITS | Encounter Summary ---
Author Organization [facility] Address [address] [place] [address] Care Team Providers Care Hand Turner Name Role Phone Unavailable Primary Care Provider Unavailabl e Encounter Details Date Type Department Care Team (Latest Contact Info) Description 02/09/2007 11:53 EDT - 02/09/2007 11:59 EDT Hospital Encounter [address] [address] Remedios Mehta MD [address] [place] [phone] Discharge Disposition: Auto Discharge Social History [...] Associated Diagnosis Comments MA MAMMO SCREENING DIGITAL 02/09/2007 12:09 EDT documented in this encounter Results * MA MAMMO SCREENING DIGITAL (02/09/2007 12:09 EDT) Anatomical Region Laterality Modality Other 02/09/2007 12:0 9 EDT Narrative 04/29/2009 9:53 EDT ROUTINE Comparison is made to films from 02/08/2006 (bilateral) and films from 01/17/2005. Bilateral Breast Findings: (CAD used to interpret routine digital): The breasts are almost entirely fat. No significant masses, calcifications or other abnormalities are seen. IMPRESSION: BILATERAL BREASTS - CATEGORY 1 Negative, no evidence of malignancy. Normal interval follow-up is recommended in 12 months. OVERALL ASSESSMENT - NEGATIVE END OF IMPRESSION The patient will be notified of her/his breast imaging results via a lay letter from Radiology. ??Radiology will contact the patient directly regarding any findings which require additional imaging (Category 0) at this time. Procedure Note Rena Guajardo MD - 04/29/2009 ROUTINE Comparison is made to films from 02/08/2006 (bilateral) and films from 01/17/2005. Bilateral Breast Findings: (CAD used to interpret routine digital): The breasts are almost entirely fat. No significant masses, calcifications or other abnormalities are seen. IMPRESSION: BILATERAL BREASTS - CATEGORY 1 Negative, no evidence of malignancy. Normal interval follow-up is recommended in 12 months. OVERALL ASSESSMENT - NEGATIVE END OF IMPRESSION The patient [...]
--- OUTSIDE RECORDS SUMMARY | 2024-06-24 02:26 | XMS_ITS | Encounter Summary ---
Author Organization [facility] Address [address] [place] [address] Care Team Providers Care Manufacturing Associate Name Role Phone Unavailable Primary Care Provider Unavailabl e Encounter Details Date Type Department Care Team (Late st Contact Info) Description 09/14/2005 8:43 EST Hospital En[facility] [address] [place] [address] Madhu Liu MD [address] [place] [phone] Social History Tobacco Use Types Packs/Day Years [...]
--- OUTSIDE RECORDS SUMMARY | 2024-06-24 02:26 | XMS_ITS | Encounter Summary ---
Author Organization [facility] Address [address] [place] [address] Care Team Providers Care Manager Of Disaster Recovery Name Role Phone Unavailable Primary Care Provider Unavailabl e Encounter Details Date Type Department Care Team (Late st Contact Info) Description 08/01/2006 10:52 EDT Hospital Encounter [facility] [address] [place] [address] Yonathan Pantoja MD [address] [facility], [address] [place] [phone] Social History Tobacco Use Types Packs/Day Years [...]
--- OUTSIDE RECORDS SUMMARY | 2024-06-24 02:26 | XMS_ITS | Encounter Summary ---
Author Organization [facility] Address [address] [place] [address] Care Team Providers Care Missile Facilities Repairer Name Role Phone Unavailable Primary Care Provider Unavailabl e Encounter Details Date Type Department Care Team (Late st Contact Info) Description 05/09/2006 10:42 EDT Hospital Encounter [facility] [address] [place] [address] Yonathan Pantoja MD [address] [facility], [address] [place] [phone] Social History Tobacco Use Types Packs/Day Years [...]
--- OUTSIDE RECORDS SUMMARY | 2024-06-24 02:26 | XMS_ITS | Encounter Summary ---
Author Organization [facility] Address [address] [place] [address] Care Team Providers Care Valve Inserter Name Role Phone Remedios Mehta MD Primary Care Provider + [phone] Encounter Details Date Type Department Care Team (Late st Contact Info) Description 08/30/[address] [facility] [address] [place] [address] Willis Dominguez MD 111 [facility], [address] [place] [address] Social History Tobacco Use Types Packs/Day Years Used Date Smoking Tobacco: Never Assessed Sex and Gender Information Value Date Recorded Sex Assigned at Not on file Gender Identity Female 2021 11:19 EDT Sexual Orientation Not on file documented as of this encounter Progress Notes * Willis Dominguez MD - 12/29/2009 1842 EST Department - Physician Summary Registration Date/Time: 08/30/2005 18:28 Time Seen: 19:02 Arrived- By private vehicle. Historian- patient. HISTORY OF PRESENT ILLNESS Chief Complaint: VAGINAL BLEEDING. This started about 4 months and still present and now worse. It has been constant (Pt noted irregular periods about 4 months ago, over last week has been more constant using up to 10 pads per day). Modifying factors- Not worsened by anything. Not relieved by anything. The patient has had mild, crampy abdominal pain. She has had mild centrally located lower back pain. She has had abnormal bleeding. She has had irregular periods. No pain with urination, urinary frequency, urgency of urination or hematuria. The patient has had similar symptoms previously. The patient was seen recently in the office. (Seen by PCP monday, had pelvic exam with cultures obtained, sent for u/s and scope yesterday that showed a small fibroid and thickened uterine lining, told to come to ED today for eval and to see ABSTRACT SEARCHER). REVIEW OF SYSTEMS No nausea, vomiting, diarrhea, black stools or anorexia. PAST HISTORY See nurses notes. (Blood clots during ). Medications: None. Allergies: See nurses notes. SOCIAL HISTORY Nonsmoker. ADDITIONAL NOTES The nursing notes have been reviewed. PHYSICAL EXAM Appearance: Alert. No acute distress. Vital Signs: The vital signs have been reviewed- blood pressure normal; heart rate normal; temperature normal. CVS: Heart sounds normal. Respiratory: No respiratory distress. Breath sounds normal. Abdomen: Abdomen soft and nontender. Skin: Normal skin color. Extremities: No calf tenderness. No pedal edema. Neuro: Oriented X 3. LABS, X-RAYS, AND EKG CBC: HCT 36.7 PROGRESS AND PROCEDURES E.D. Course: Pt seen by ABSTRACT SEARCHER - HCT increased from prior, cleared for discharge, to fu [facility] Discussed case with physician ABSTRACT SEARCHER resident 19:20 Disposition: Discharged home. Condition: good. CLINICAL IMPRESSION Dysfunctional uterine bleeding. INSTRUCTIONS If you develop shortness of breath or any difficulty with the anaprox stop taking it Warnings: GENERAL WARNINGS:Return or contact your physician immediately if your condition worsens or changes unexpectedly, if not improving as expected, or if other problems arise. Prescription Medications: Anaprox DS 550 mg tablets: take 1 orally every 12 hours as needed for pain. Dispense twenty (20). No refills. Generic substitute OK. Follow-up: Follow up with a educational aid [facility] [phone], call for appointment (Electronically signed by Willis Dominguez MD 08/30/2005 21:14) Addenda arturo MOUNA HUSAINRON: [id number] VisitID: [id number] Date: 08/30/2005 08/30/2005 18:29 PT COMING FROM [facility] FOR VAGINAL BLEEDING. TO BE SEEN IN THE ER. signed by Wale Malone - 08/30/2005 18:29) Department - Nursing Summary Registration Date/Time: 08/30/2005 18:28 TRIAGE Initial Assessment Triage time 18:54 Acuity: LEVEL 3. BP: 114 / 77 HR: 72 RR: 14 Temp: 35.9 C (tympanic). --1857 Danielle Marks R.N. Medications (relafen reazadone protonix loratadinezelnormhydroxychloride accolate advair). --1857 Danielle Marks R.N. Allergies (pcn codeine sulfa eggs). --1857 Danielle Marks R.N. History Chief Complaint: NAUSEA and VAGINAL BLEEDING and FLANK PAIN (2 mo). Pain level now:02/06. 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 PAST HX: (ibs arthritis asthma). SOCIAL HX: Nonsmoker. Denies alcohol use. Arrived by private vehicle. --1857 Danielle Marks R.N. NURSING PROGRESS NOTES Progress Patient gowned. Head of bed elevated. Patient walked with tech (room 39). Call light placed in reach. Side rails up x 1. Bed placed in lowest position. Brakes of bed on. --1900 Michoacano London (ABSTRACT SEARCHER MD in for pelvic). --1957 Elise Jane R.N. IV / I&O Flowsheet IV line accessed- blood drawn and (from left AC, purple to lab). --1957 Elise Jane R.N. DISPOSITION / DISCHARGE Condition at departure: stable. No barriers to learning present. Discharge instructions reviewed with the patient. Warnings reviewed. Reviewed medication. Treatments reviewed. Reviewed referrals. Patient verbalized understanding. Written instructions provided in [place]. (Pt to f/u with MD at clinic.). The patient was discharged home. The patient left the Emergency Department ambulatory and via private vehicle. Patient driving. --2105 Lyla Lawrence R.N., E.M.T. Joanne Lalime R.N. Daryl Holthoff, R.N. Locked/Released at 08/31/2005 12:21 by [place] R.N. documented in this encounter Plan of Treatment Not on file documented as of this encounter Visit Diagnoses Not on filedocumented in this encounter Care Teams Valve Inserter Relationship Specialty Start Date End Date Remedios Mehta MD [address] [place] [phone] PCP - General 02/19/09 01/04/15 documented as of this encounter
--- OUTSIDE RECORDS SUMMARY | 2024-06-24 02:26 | XMS_ITS | Encounter Summary ---
Author Organization [facility] Address [address] [place] [address] Care Team Providers Care Cell Inspector Name Role Phone Remedios Mehta MD Primary Care Provider [phone] Encounter Details Date Type Department Care Team (Late st Contact Info) Description 08/01/2006 Before PRISM Converted Visit ([facility]) [facility] [address] [place] [address] Yonathan Pantoja MD [address] [facility], [address] [place] [address] Social History Tobacco Use Types Packs/Day Years Used Date Smoking Tobacco: Never Assessed Sex and Gender Information Value Date Recorded Sex Assigned at Not on file Gender Identity Female 2021 11:19 EDT Sexual Orientation Not on file documented as of this encounter Progress Notes * Yonathan Pantoja MD - 11/03/2009 0531 EST DIVISION OF PULMONOLOGY August 01, 2006 Remedios Strong MD [facility] [address] [place] [address] Strong, I had the pleasure of seeing Cherelle monsivais in pulmonary clinic today for followup regarding her asthma.I last saw her in April, which was my first visit with her. I realized that she had mild persistent asthma and was under quite a bit of stress at homeas well as having difficulty with the hot humid weather at that time. I put her on a trial of tiotropium, also recommended that she use her Flonase daily, as well as saline to combat continued sinus symptoms. She comes back today feeling very poorly.She has had sinus symptoms over the last week with sinus congestion, nasal discharge, xthsg-rg-ideaf in color, no fevers, maybe some chills. She feels that her left ear is somewhat stuffed as well. She ran out of the Flonase. She is using the saline only intermittently. She also ran out her Advair and albuterol 2 days ago and was unable to financially refill those prescriptions. She is continuingto take her Accolate therapy and her Protonix. She says her asthma symptoms are much worse and she has a lot shortness ofbreath, dyspnea on exertion, and cough. She has no chest pain, however, and noabdominal pain, nausea, vomiting, diarrhea, no headaches, no changes in her skin or joints. On exam today, she appears comfortable but is coughing intermittently. Blood pressure is 117/53, pulse 73, respirations 12, saturation on room air 98%. She is afebrile. Her weight is 206 pounds and her height is reported at 5 feet even. On exam, oropharynx is clear. The tympanic membranes are well visualized bilaterally and do not show any signs of inflammation. There is no cervical lymphadenopathy or jugular venous distention. Heart tones are normal. There is no murmur or gallop. The lungs areclear bilaterally. The abdomen is soft, nontender, and extremities are without edema. Spirometry was done today but unfortunately the patient had a lot symptoms and was unable to meet ATS standards. The postbronchodilator FEV1 was 1.18 L, which is markedly reduced from that measured in April when it was 1.43. However, because of the technical difficulties, I am not sure these resultsare valid. My impression is that Cherelle continues to have significant symptoms from asthma and possible vocal cord dysfunction. When asked directly about vocal cord dysfunction symptoms she denies them and also says that she was not trying to use any exercises to combat possible contribution from vocal cord dysfunction. She continues to be under a lot of stress and in fact tells me she is moving to [place] in October. She has run out of the medications as stated.Accordingly at this time, I am giving her a sample of Advair, as well as Flonase, nasal saline, and I told her to use the Flonase and nasal saline to try to reduce the nasal symptoms over the next week. If there is no significant improvement, she is to call me and we will consider adding antibiotics for the possibility of bacterial infection. She is to continue the Advair as prescribed, the Accolate, and continue with the use of the Flonase and nasal saline as stated. I would like to see her back in September for a brief visit prior to her moving in October. I will try to locate the name of a pulmonary physician for her in the [place], [place] area, which it is where she is moving to. She is to call me in the meantime if there are any questions or concerns, and I encourage you to do the same. Thank you very much for allowing me to participate in the care of Mrs. Alvarez with you. Sincerely yours, Signed by Yonathan Pantoja MD 08/03/2006 15:07 Kathya Sebastian MD Yonathan Pantoja MD - Yonathan Pantoja MD P - DMV Job ID: [id number] Document ID: [id number] cc: Remedios Strong MD documented in this encounter Plan of Treatment Not on file documented as of this encounter Visit Diagnoses Not on filedocumented in this encounter Care Teams Cell Inspector Relationship Specialty Start Date End Date Remedios Mehta MD [address] [place] [phone] PCP - General 02/19/09 01/04/15 documented as of this encounter
--- OUTSIDE RECORDS SUMMARY | 2024-06-24 02:26 | XMS_ITS | Encounter Summary ---
Author Organization [facility] Address [address] [place] [address] Care Team Providers Care Reconciliation Coordinator Name Role Phone Unavailable Primary Care Provider Unavailabl e Encounter Details Date Type Department Care Team (Late st Contact Info) Description 03/21/2007 15:45 EDT Hospital Encounter [facility] [address] [place] [address] Yovana Callejas MD [address] [place] [address] [phone] Social History Tobacco Use Types [...]
--- OUTSIDE RECORDS SUMMARY | 2024-06-24 02:26 | XMS_ITS | Encounter Summary ---
Author Organization [facility] Address [address] [place] [address] Care Team Providers Care Ui Software Engineer Name Role Phone Unavailable Primary Care Provider Unavailabl e Encounter Details Date Type Department Care Team (Late st Contact Info) Description 02/27/2007 11:00 EDT Hospital Encounter [facility] [place] [address] [place] [address] Remedios Mehta MD [address] [place] [phone] Social History Tobacco Use Types Packs/Day [...]
--- OUTSIDE RECORDS SUMMARY | 2024-06-24 02:26 | XMS_ITS | Encounter Summary ---
Author Organization [facility] Address [address] [place] [address] Care Team Providers Care Sales Support Coordinator Name Role Phone Unavailable Primary Care Provider Unavailabl e Encounter Details Date Type Department Care Team (Late st Contact Info) Description 12/16/2005 14:44 EST Hospital Encounter [facility] [address] [place] [address] MD [address] [place] [address] Social History Tobacco Use Types Packs/Day Years [...]
--- OUTSIDE RECORDS SUMMARY | 2024-06-24 02:26 | XMS_ITS | Encounter Summary ---
Author Organization [facility] Address [address] [place] [address] Care Team Providers Care Bacteriology Teacher Name Role Phone Remedios Mehta MD Primary Care Provider + [phone] Encounter Details Date Type Department Care Team (Late st Contact Info) Description 06/12/2009 13:18 EDT Hospital Encounter [facility] [address] [place] [address] Manasa Luciano PA-C [address] [place] [phone] Discharge Disposition: Home or Self Care Social [...] on filedocumented in this encounter Care Teams Bacteriology Teacher Relationship Specialty Start Date End Date Remedios Mehta MD [address] [place] [phone] PCP - General 02/19/09 01/04/15 documented as of this encounter
--- OUTSIDE RECORDS SUMMARY | 2024-06-24 02:26 | XMS_ITS | Encounter Summary ---
Author Organization [facility] Address [address] [place] [address] Care Team Providers Care Neonatal Specialist Name Role Phone Unavailable Primary Care Provider Unavailabl e Encounter Details Date Type Department Care Team (Late st Contact Info) Description 10/03/2006 15:03 [facility] Hospital Encounter [facility] [address] [place] [address] Yovana Callejas MD [address] [place] [address] [phone] Social History Tobacco Use Types [...]
--- OUTSIDE RECORDS SUMMARY | 2024-06-24 02:26 | XMS_ITS | Encounter Summary ---
Author Organization [facility] Address [address] [place] [address] Care Team Providers Care Transformer Tester Name Role Phone Unavailable Primary Care Provider Unavailabl e Encounter Details Date Type Department Care Team (Late st Contact Info) Description 12/23/2005 8:57 EST Hospital Encounter [facility] [place] [address] [place] [address] Madhu Liu MD [address] [place] [phone] Social History Tobacco Use Types Packs/Day [...]
--- OUTSIDE RECORDS SUMMARY | 2024-06-24 02:26 | XMS_ITS | Encounter Summary ---
Author Organization [facility] Address [address] [place] [address] Care Team Providers Care Refrigeration Insulator Name Role Phone Remedios Mehta MD Primary Care Provider + [phone] Encounter Details Date Type Department Care Team (Late st Contact Info) Description 02/24/2009 11:45 EDT - 02/24/2009 12:29 EDT Hospital Encounter [facility] Pulmonary Function Lab - [facility] [address] [place], [place] [address] Yonathan Pantoja MD 111 [facility], [address] [place] [phone] Discharge Disposition: Home or Self Care Social [...] filedocumented in this encounter Care Teams Refrigeration Insulator Relationship Specialty Start Date End Date Remedios Mehta MD [address] [place] [phone] PCP - General 4/23/09 3/8/15 documented as of this encounter
--- OUTSIDE RECORDS SUMMARY | 2024-06-24 02:26 | XMS_ITS | Encounter Summary ---
Author Organization [facility] Address [address] [place] [address] Care Team Providers Care Event Services Manager Name Role Phone Remedios Mehta MD Primary Care Provider [phone] Encounter Details Date Type Department Care Team (Late st Contact Info) Description 10/03/2006 Before PRISM Converted Visit ([facility]) [facility] [address] [place] [address] Yovana Callejas MD [address] [place] [address] [phone] Social History Tobacco Use Types Packs/Day Years Used Date Smoking Tobacco: Never Assessed Sex and Gender Information Value Date Recorded Sex Assigned at Not on file Gender Identity Female 2021 11:19 EDT Sexual Orientation Not on file documented as of this encounter Progress Notes * Yovana Callejas MD - 11/05/2009 1434 EST DIVISION OF RHEUMATOLOGY PROGRESS/FOLLOWUP NOTE - 10/03/2006 REASON FOR APPOINTMENT: Here in followup of inflammatory polyarthritis, also complaining of hand pain. SUBJECTIVE: Her arthritis seems to be stable but her hands have been very painful. She is having dysesthesias and weakness in both hands. She is right handed, but her left hand seems equally affected. Symptoms get worse as the day goes on, but she isalso experiencing morning stiffness. She has not noticed any swelling but has tenderness over the MCPs of both hands. She also finds her hands are weak, and when she uses them in a repetitive manner the pain intensifies. She has not been taking anything but Tylenol for pain relief and finds it relatively ineffective. She stopped Relafen because ofeasy bruising and because it was not working well to control her pain. Her morning stiffness is currently less than 1 hour. PAST MEDICAL HISTORY: Asthma and history of anxiety and depression, myofascial pain syndrome. CURRENT MEDICATIONS: Plaquenil 200 mg twice a day. She usesalbuterol nebulizers as needed. She takes Zelnorm for irritable bowel syndrome and an Advair inhaler. She is on Accolate, calcium, and albuterol as needed, trazodone 25 mg at night, and Tylenol 1000 mg daily. She also takes loratadine as needed. ALLERGIES: She is allergic to multiple medications: Aspirin, penicillin, codeine, and sulfa. REVIEW OF SYSTEMS: Constitutionally, weight has been stable. Respiratory: A recent asthma exacerbation was treated with frequent nebulizations but did not lead to hospitalization. The patient reportsthat her asthma is currently well controlled. Skin: No further bruising issues. Neurologic: See above. HEENT: Denies. Cardiovascular: No complaints. Psych: Mood has been good. 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 PHYSICAL EXAMINATION: Height: 4 foot 11- 3/4 inches. Weight: 210 pounds. Blood pressure 120/80, pulse 72 and regular, respiratory rate 18. Pain is 8/10, hands and knees. Skin: No abnormal lesions. HEENT: Unremarkable. Chest: Clear to auscultation. Cardiac: Regular rate and rhythm. Symmetric radial pulses. Abdomen: Obese, soft, and nontender. Gait: Unremarkable. Neurologic: Positive Tinel sign bilaterally. Thenar atrophy and weakness, right greater than left but present bilaterally. No fasciculations noted. Joint examination: No synovitis and preservation of range of motion of the joints of the upper and lower extremities, myofascial tender points are prominent in the lower back. IMPRESSION: 1. Inflammatory polyarthritis, no clinical signs. May consider taper of Plaquenil at next visit. 2. Bilateral hand weakness, fits with carpal tunnel and would fall in the moderate to severe category. PLAN: 1. Offered braces but patient has these at home, she will use them. 2. Offered corticosteroids, but she declined. 3. Set up for EMG with referral to hand surgeon if positive. 4. Arthralgias and myalgias in low back. a. Trial of Neurontin 100 mg at nightly increasing to 300 mg as tolerated. This might replaced her trazodone. Side effects and risks and benefits of Neurontin were discussed. 5. Followup. I will see her back in 3 months. Signed by Yovana Callejas MD 10/09/2006 09:45 Jens Alonso MD Yovana Callejas MD - Gerri Callejas MD P - O1 Job ID: [id number] Document ID: [id number] cc: Remedios Strong MD documented in this encounter Plan of Treatment Not on file documented as of this encounter Visit Diagnoses Not on filedocumented in this encounter Care Teams Event Services Manager Relationship Specialty Start Date End Date Remedios Mehta MD [address] [place] [phone] PCP - General 02/19/09 01/04/15 documented as of this encounter
--- OUTSIDE RECORDS SUMMARY | 2024-06-24 02:26 | XMS_ITS | Encounter Summary ---
Author Organization [facility] Address [address] [place] [address] Care Team Providers Care Elementary Summer School Teacher Name Role Phone Unavailable Primary Care Provider Unavailabl e Encounter Details Date Type Department Care Team (Late st Contact Info) Description 11/18/2008 7:46 EST Hospital Encounter [facility] - [place] conversion [address] [place] [address] Manasa Luciano PA-C [address] [facility] [address] [place] [address] Social History Tobacco Use Types [...]
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
--- OUTSIDE RECORDS SUMMARY | 2024-06-24 02:26 | XMS_ITS | Encounter Summary ---
Author Organization [facility] Address [address] [place] [address] Care Team Providers Care Staying Machine Operator Name Role Phone Unavailable Primary Care Provider Unavailabl e Encounter Details Date Type Department Care Team (Latest Contact Info) Description 10/01/2008 15:39 EST Hospital Encounter [facility] - [place] conversion [address] [place] [address] Cathryn Garza, MARIA [address] [place] [address] Discharge Disposition: Auto Discharge Social History Tobacco [...]
--- OUTSIDE RECORDS SUMMARY | 2024-06-24 02:26 | XMS_ITS | Encounter Summary ---
Author Organization [facility] Address [address] [place] [address] Care Team Providers Care Rawhide Trimmer Name Role Phone Unavailable Primary Care Provider Unavailabl e Encounter Details Date Type Department Care Team (Late st Contact Info) Description 09/12/2008 14:31 EST Hospital Encounter [facility] [address] [place] [address] Yovana Callejas MD [address] [place] [address] [address] [place] [phone] Social History Tobacco Use Types Packs/Day [...]
--- OUTSIDE RECORDS SUMMARY | 2024-06-24 02:26 | XMS_ITS | Encounter Summary ---
Author Organization [facility] Address [address] [place] [address] Care Team Providers Care Urology Physician Name Role Phone Unavailable Primary Care Provider Unavailabl e Encounter Details Date Type Department Care Team (Late st Contact Info) Description 01/12/2009 8:51 EDT - 01/12/2009 11:59 EDT Hospital Encounter [facility] [address] [place] [address] Yovana Callejas MD [address] [place] [address] [phone] Discharge Disposition: Auto Discharge Social [...]
--- OUTSIDE RECORDS SUMMARY | 2024-06-24 02:26 | XMS_ITS | Encounter Summary ---
Author Organization [facility] Address [address] [place] [address] Care Team Providers Care Chief Pharmacist Name Role Phone Remedios Mehta MD Primary Care Provider [phone] Encounter Details Date Type Department Care Team (Late st Contact Info) Description 05/09/2006 Before [facility] Converted Visit ([facility]) [facility] - Maple conversion [address] [place], [place] [address] [phone] Yonathan Pantoja MD [address] [facility] [address] [place] [address] Social History Tobacco Use Types Packs/Day Years Used Date Smoking Tobacco: Never Assessed Sex and Gender Information Value Date Recorded Sex Assigned at Not on file Gender Identity Female 2021 11:19 EDT Sexual Orientation Not on file documented as of this encounter Progress Notes * Yonathan Pantoja MD - 10/23/20092033 EST DIVISION OF PULMONOLOGY May 09, [address] [facility] [address] [place] [address] Strong: I had the pleasure of seeing your patient Ms. Husain in Pulmonary Clinic for followup of her asthmaI am taking over her care from Dr. Mauro Lane who has left [facility]. As you know, Mrs. Huasin has severe asthmaas well as vocal cord dysfunction. She was last seen by Mauro in 2005, at whichtime she was doing relatively well. Since that time, the patient says that she has had increased asthma symptoms, especially over the last couple of weeks when the weather has turned very hot and humid. In addition she is undergoing a lot of stress at home in the mist of a divorce as well as tryingto support her daughter and granddaughterfinancially. She denies any fevers, chills, chest pain, cough, or sputum production. She does have occasional sinus tenderness and sinus infection for which she takes inhalednasal saline. She has Flonase prescribed but is not using it regularly. She also hasgastroesophageal reflux disease with occasional heartburn, especially at times of stress despite being on proton pump inhibitor therapy. She supplements this as needed with antacids. Her regimen includes: 1. Advair 500/50. 2. Accolade. 3. Protonix 4. Other medications that are listed in her hospital records. On exam today she appears comfortable in no distress. Blood pressure is 116/68, pulse 78, respirations 16. She is saturating 95% on room air. Temperature is 34.8, her weight is 206. She is trying to lose weight aggressively with diet modifications and increased exercise. On exam, her lungs are clear except for some soft expiratory wheezes heard around the neck area. Heart tones are normal. Extremities are without edema. Lung function testing today showed her FEV1 is reduced from 1.79 measured in May 2005 to 1.43 measured today at 53% predicted. The flow volume loop does not suggest airflow limitation at this time. My impression is that Mrs. Husain clearly is undergoing more stress at home and the weather certainly might be contributing to worsening of her symptoms. I have suggested an empiric trial of the addition of tiotropium, a long acting anticholinergic bronchodilator to her Advair, and she is already on antileukotriene therapy. I talked to her about the use of theophylline, but she says she cannot tolerate this due to GI distress. We talked about the importance of weight loss and I encouraged her in this direction. also suggested that she begin using the Flonase daily in addition to her daily saline to try to combat sinus symptoms. I would like her to return to the clinic in July for repeat assessment of her spirometry and to see how she is doing clinically. Please contact me if you have any further questions or concerns. Thank you very much for allowing me to participate in the care of Mrs. Husain with you. Sincerely Yours, Signed by Yonathan Pantoja MD 05/11/2006 14:17 Kathya Sebastian MD Yonathan Pantoja MD - Yonathan Pantoja MD A - do Job ID: [id number] Document ID: [id number] cc: Remedios Strong MD documented in this encounter Plan of Treatment Not on file documented as of this encounter Visit Diagnoses Not on filedocumented in this encounter Care Teams Chief Pharmacist Relationship Specialty Start Date End Date Remedios Mehta MD [address] [place] [phone] PCP - General 02/19/09 01/04/15 documented as of this encounter
--- OUTSIDE RECORDS SUMMARY | 2024-06-24 02:26 | XMS_ITS | Encounter Summary ---
Author Organization [facility] Address [address] [place] [address] Care Team Providers Care Lifestyle Coordinator Name Role Phone Remedios Mehta MD Primary Care Provider [phone] Encounter Details Date Type Department Care Team (Late st Contact Info) Description 03/16/2009 8:45 EDT - 03/16/2009 23:59 EDT Hospital Encounter [facility] Rheumatology & Immunology - [facility] [address] [place], [place] [id number] Yovana Callejas MD [address] [place] [address] [phone] Discharge Disposition: Auto Discharge Social History Tobacco [...] Progress Notes * Yovana Callejas MD - 03/16/2009 0000 EDT DIVISION OF RHEUMATOLOGY PROGRESS/FOLLOWUP NOTE - 03/16/2009 This patient presents here in followup of fibromyalgia syndrome. SUBJECTIVE She is tolerating Cymbalta but does not think it has done much for her. She feels very tired in themorning. Her asthma has been under poor control. She is seeing Dr. Pantoja to improve control. Hasbeen on prednisone several times over the past several months and is frustrated. Her knuckles are red and swollen. She has severe pain in her right side and has had shooting pains down the right arm and also down the left. This is associated with weakness in her hands. She notes deformities progressing in her hands as well. Nausea has been a problem for her. She wants to have a refill of her medication, amitizia,that is usually prescribed by her primary care provider. She has a dry mouth as well. She is also experiencing fatigue and night sweats and is very distressed but feels that she is holding some of her stress inside. PAST MEDICAL HISTORY Reviewed and updated in the chart. ALLERGIES Penicillin, aspirin, codeine and sulfa. MEDICATION LIST Reviewed and updated in chart. PHYSICAL EXAM Pleasant, well appearing. Height 60-3/4 inches, weight 207, blood pressure 110/68, pulse 62, respiratory rate is 16. Pain 6-7/10 in hands, back and knees. Skin: No rashes or changes. HEENT normal. Chest: Clear to auscultation. Abdomen is obese. Gait is within normal limits. Neurologic: Discrete andexquisite tenderness over the right elbow with dysesthesias into the right 3rd, 4th and 5th finger.Intrinsic muscle strength is slightly weak on the right compared with the left, tenderness over both elbows is noted. Her upper and lower extremities show no vesiculations. Straight leg raise is negative. Hand events traffic controller is 5/5 bilaterally. Joints: Osteoarthritic changes over the DIPs and PIPs. Myofascial tender points are minimally present. IMPRESSION Right hand pain: A previous evaluation with EMG has revealed mild ulnar nerve entrapment. I think this has progressed over time. Educated patient that I do not think this is a typical manifestations of fibromyalgia. We discussed the possibility of repeat EMG/nerve conduction study, but she is not thrilled about this possibility. Reviewed conservative measures which might be helpful including padding or protecting the area and educated her about the difference between fibromyalgia and ulnar nerve entrapment. She will call me back if she wishes further evaluation to consider ulnar nerve transposition. 2. Fatigue: I do not think this is related to the Cymbalta. This medication should help the symptombut her asthma is not well controlled. PLAN Increase Cymbalta to 60 mg twice a day. She will increase to 60 mg in the morning and 30 mg at night for 1 to 2 weeks, then increase it to 60 mg twice daily if tolerated. 2. Followup appointment as needed. She will call me with the results of her decision regarding ulnar nerve evaluation. 3. Continue Plaquenil. 3. Educated patient that her degenerative-type changes in her hands were not likely the cause of her intense pain. Signed by Yovana Callejas MD 03/18/2009 13:34 Yovana Callejas MD - Yovana Callejas MD - RICHI Job ID: [id number] Doc ID: [id number] cc: MD Remedios Mejia MD documented in this encounter Plan of Treatment Not on file documented as of this encounter Visit Diagnoses Not on filedocumented in this encounter Care Teams Lifestyle Coordinator Relationship Specialty Start Date End Date Remedios Mehta MD [address] [place] [phone] PCP - General 02/19/09 01/04/15 documented as of this encounter
--- OUTSIDE RECORDS SUMMARY | 2024-06-24 02:26 | XMS_ITS | Encounter Summary ---
Author Organization [facility] Address [address] [place] [address] Care Team Providers Care Baseball Coach Name Role Phone Remedios Mehta MD Primary Care Provider + [phone] Encounter Details Date Type Department Care Team (Late st Contact Info) Description 06/12/2009 13:[address] [facility] [address] [place] [address] Manasa Luciano PA-C [address] [place] [phone] Discharge Disposition: Home or Self Care Social History Tobacco Use Types Packs/Day Years Used Date Smoking Tobacco: Never Assessed Sex and Gender Information Value Date Recorded Sex Assigned at Not on file Gender Identity Female 2021 11:19 EDT Sexual Orientation Not on file documented as of this encounter Discharge Disposition Disposition Code Departure Means Destination Home or Self Snf documented in this encounter Plan of Treatment Not on file documented as of this encounter Visit Diagnoses Not on filedocumented in this encounter Care Teams Baseball Coach Relationship Specialty Start Date End Date Remedios Mehta MD [address] [place] [phone] PCP - General 02/19/09 01/04/15 documented as of this encounter
--- OUTSIDE RECORDS SUMMARY | 2024-06-24 02:26 | XMS_ITS | Encounter Summary ---
Author Organization [facility] Address [address] [place] [address] Care Team Providers Care Detective And Intelligence Analyst Name Role Phone Unavailable Primary Care Provider Unavailabl e Encounter Details Date Type Department Care Team (Late st Contact Info) Description 11/11/2005 9:59 EST Hospital Encounter [facility] conversion [address] [place] [address] Madhu Liu MD [address] [place] [phone] Social History Tobacco Use Types Packs/Day [...]
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
--- OUTSIDE RECORDS SUMMARY | 2024-06-24 02:26 | XMS_ITS | Encounter Summary ---
Author Organization [facility] Address [address] [place] [address] Care Team Providers Care Electrical Engineer Name Role Phone Unavailable Primary Care Provider Unavailabl e Encounter Details Date Type Department Care Team (Latest Contact Info) Description 07/17/2008 8:54 EDT - 07/17/2008 11:59 EDT Hospital Encounter [facility] [address] [place] [address] Sam Griffith MD Discharge Disposition: Auto Discharge Social History [...] Priority Date/Time Associated Diagnosis Comments L SPINE 4 OR MORE VIEWS 07/17/2008 10:25 EDT CERVICAL SPINE 2-3 VIEWS 07/17/2008 10:25 EDT documented in this encounter Results * L SPINE 4 OR MORE VIEWS (07/17/2008 10:25 EDT) Anatomical Region Laterality Modality Other 07/17/2008 10:2 5 EDT Narrative 03/16/2009 8:51 EDT neck and back pain r/o degenerative disc disease L SPINE 4 OR MORE VIEWS: ??July 17, 2008 10:25:00 AM Signs and Symptoms: ??Neck and back pain. Rule out degenerative disc disease. Comparison: None available. Findings: AP and lateral flexion, neutral and extension views of the lumbar spine were obtained. Significant scoliotic curvature is not identified. Lumbar vertebral body heights are well maintained. There is no laurence- or retrolisthesis. There is mild disc space narrowing at L5-S1. Impression: Mild disc degeneration at L5-S1. Procedure Note Cathryn Pierre MD - 03/16/2009 neck and back pain r/o degenerative disc disease L SPINE 4 OR MORE VIEWS: July [...] L5-S1. Impression: Mild disc degeneration at L5-S1. Sam Griffith MD IMG DIAGNOSTIC IMAG ING ORDERABLES * CERVICAL SPINE 2-3 VIEWS (07/17/2008 10:25 EDT) Anatomical Region Laterality Modality Other 07/17/2008 10:2 5 EDT Narrative 03/16/2009 8:51 EDT neck and back pain r/o degenerative disc disease CERVICAL SPINE 2-3 VIEWS: ??July 17, 2008 10:25:00 AM Signs and Symptoms: ??Neck and back pain. Rule out degenerative disc disease. Findings: AP and lateral views of the cervical spine were obtained. Cervical vertebral body heights are well maintained. No laurence- or retrolisthesis is identified. There is disc space narrowing and marginal osteophyte formation at C4-C5, C5-C6 and C6-C7, consistent with disc degeneration. Impression: Disc degeneration at C4-C5, C5-C6 and C6-C7. Procedure Note Cathryn Pierre MD - 03/16/2009 neck and back pain r/o degenerative disc disease CERVICAL SPINE 2-3 VIEWS: July 17, 2008 10:25:00 AM Signs and Symptoms: Neck and back pain. Rule out degenerative disc disease. Findings: AP and lateral views of the cervical spine were obtained. Cervical vertebral body heights are well maintained. No laurence- or retrolisthesis is identified. There is disc space narrowing and marginal osteophyte formation at C4-C5, C5-C6 and C6-C7, consistent with disc degeneration. Impression: Disc degeneration at C4-C5, C5-C6 and C6-C7. Sam Griffith MD IMG DIAGNOSTIC IMAG ING ORDERABLES documented in this encounter Visit Diagnoses Not on filedocumented in this encounter
--- OUTSIDE RECORDS SUMMARY | 2024-06-24 02:26 | XMS_ITS | Encounter Summary ---
Author Organization [facility] Address [address] [place] [address] Care Team Providers Care Rack Puncher Name Role Phone Remedios Mehta MD Primary Care Provider + [phone] Encounter Details Date Type Department Care Team (Late st Contact Info) Description 03/21/2007 Before PRISM Converted Visit (Maple) [facility] - [facility] conversion [address] [place] [address] Yovana Callejas MD [address] [place] [address] [address] Social History Tobacco Use Types Packs/Day Years Used Date Smoking Tobacco: Never Assessed Sex and Gender Information Value Date Recorded Sex Assigned at Not on file Gender Identity Female 2021 11:19 EDT Sexual Orientation Not on file documented as of this encounter Progress Notes * Yovana Callejas MD - 09/06/2009 1311 EST DIVISION OF RHEUMATOLOGY PROGRESS/FOLLOWUP NOTE - 03/21/2007 REASON FOR APPOINTMENT Patient is here in followup of fibromyalgia and inflammatory polyarthritis. SUBJECTIVE She is doing okay. Has decreased sleep. Has right-sided hand pain and is scheduled for carpal tunnel surgery. Hands have been aching quite a bit. Pain seems to be bilateral, worse on the left than the right perhaps. Also some numbness. Low back has been achy. No changes in her asthma. No swollen joints or foot pain. PAST MEDICAL HISTORY Asthma, depression, fibromyalgia, and inflammatory arthritis. ALLERGIES Penicillin, aspirin, codeine, and sulfa. MEDICATIONS 1. Advair. 2. Accolate. 3. Calcium. 4. Albuterol. 5. Trazodone 50 to 100 mg at night. 6. Plaquenil 200 mg twice a day. 7. Protonix 40 mg twice a day. 8. Multivitamin. 9. Loratadine. 10. Amitiza 24 mg. 11. Flonase. REVIEW OF SYSTEMS As described above. No current skin rashes. No difficulty with depression. No mouth sores. Recent vision exam was normal. No chest pain or palpitations. EXAM Height 60 inches, weight 201, blood pressure 122/60, pulse 60, respiratory rate is 12. Pain 8/10 hips, knees, and low back. Skin: No pathologic lesions on extremities. It is tanned. HEENT: No ocular inflammation or oral ulcers. Chest: Clear to auscultation. Cardiac: Regular rate and rhythm. Abdomen: Obese, soft, and nontender. Gait: Within normal limits. Neurologic: Positive Tinel bilaterally. Mild thenar atrophy. Joints: Some thickening over the MCPs. Wrists unremarkable. Elbows and shoulders unremarkable. Myofascial tenderness present and prominent in the upper and lower extremities. IMPRESSION AND PLAN 1. Carpal tunnel syndrome on the left, scheduled for surgery. 2. Myofascial pain, not well-controlled, getting worse. Trial of Ambien 10 mg at night. 3. Inflammatory arthritis, clinically stable. Continue Plaquenil. 4. Moving out of area. Patient was given [facility] Directory to locate a physician in the [place] area. Signed by Yovana Callejas MD 03/27/2007 14:25 Jens Alonso MDChristine H Jones, MD Yovana Callejas MD -Yovana Callejas MD -an Job ID: [id number] Doc ID: [id number] cc: Remedios Strong MD *Cherelle Husain, [address] [place] [address]* documented in this encounter Plan of Treatment Not on file documented as of this encounter Visit Diagnoses Not on filedocumented in this encounter Care Teams Rack Puncher Relationship Specialty Start Date End Date Remedios Mehta MD [address] [place] [phone] PCP - General 02/19/09 01/04/15 documented as of this encounter
--- OUTSIDE RECORDS SUMMARY | 2024-06-24 02:26 | XMS_ITS | Encounter Summary ---
Author Organization [facility] Address [address] [place] [address] Care Team Providers Care Clearance Diver Name Role Phone Remedios Mehta MD Primary Care Provider [phone] Encounter Details Date Type Department Care Team (Late st Contact Info) Description 09/12/2008 Before PRISM Converted Visit (Maple) [facility] - Maple conversion [address] [place] [address] Yovana Callejas MD [address] [place] [address] [address] [place] [phone] Social History Tobacco Use Types Packs/Day Years Used Date Smoking Tobacco: Never Assessed Sex and Gender Information Value Date Recorded Sex Assigned at Not on file Gender Identity Female 2021 11:19 EDT Sexual Orientation Not on file documented as of this encounter Progress Notes * Yovana Callejas MD - 05/23/2009 1841 EDT DIVISION OF RHEUMATOLOGY PROGRESS/FOLLOWUP NOTE - 09/12/2008 This patient is here in followup of inflammatory arthritis and fibromyalgia. SUBJECTIVE Her sleep has been terrible and she feels her fibromyalgia is terrible. She is back at work and shelikes this. She is still living with her son and his . Sleep is leading to a lot of tossing andturning. She has felt sad, anxious, and depressed at different times. Constipation has been an issue. Mouth sores also a problem. She reports morning stiffness is a problem as well. She has had a few asthma flare-ups recently too. Needs a flu shot today. PAST MEDICAL HISTORY Asthma, reflux disease, fibromyalgia, inflammatory arthritis. ALLERGIES Penicillin, aspirin, codeine, sulfa. MEDICINES Advair. 2. Accolate. 3. Calcium and vitamin D. 4. Albuterol. 5. Trazodone 50 to 100 mg at night. 6. Plaquenil 200 mg twice daily. 7. Protonix 40 mg twice daily. 8. Multivitamin. 9. Loratadine 10 mg. 10. Amitiza. 11. Flonase. 12. Neurontin dose unknown at night. OF SYSTEMS As described above. No additional complaints on the remainder of a complete 12- point review of systems. PHYSICAL EXAM Pleasant woman. Weight 204, blood pressure 94/60, pulse 76, height 60-1/4 inches. Pain 6/10 in joints and hips. Skin: No abnormalities. HEENT: No ocular inflammation. Her chest is clear. Cardiac: Regular rate and rhythm. Abdomen obese. Gait is within normal limits. Joints: There is tenderness over the hands but no obvious synovitis. The tenderness is quite diffuse through the forearms and myofascial tender points are most prominent in the anterior chest, upper back, and low back. She has markedtenderness in the pes anserine bursa on the right with some slight fullness here. Knees themselves are not swollen and range of motion is preserved. IMPRESSION Pes anserine bursitis. In the setting of fibromyalgia I am reluctant to inject this and I think it may calm down on its own but if it continues to be tender we may inject in the future. 2. Fibromyalgia. Very active, likely exacerbated by poor sleep and increased stressors. PLAN We will send her for aquatic therapy, referral provided. 2. The patient is requesting a trial of Lyrica instead of Neurontin (which she finds ineffective). She will try Lyrica 25 mg two to three times a day for a month and then we can possibly increase herup to 50 mg two to three times a day for treatment of her fibromyalgia. 3. She will return to see me in three or four months. 4. Flu shot provided today. Signed by Yovana Callejas MD 09/16/2008 11:55 Yovana Callejas MD - Yovana Callejas MD - RICHI Job ID: [id number] Doc ID: [id number] cc: Remedios Strong MD documented in this encounter Plan of Treatment Not on file documented as of this encounter Visit Diagnoses Not on filedocumented in this encounter Care Teams Clearance Diver Relationship Specialty Start Date End Date Remedios Mehta MD [address] [place] [phone] PCP - General 02/19/09 01/04/15 documented as of this encounter
--- OUTSIDE RECORDS SUMMARY | 2024-06-24 02:26 | XMS_ITS | Encounter Summary ---
Author Organization [facility] Address [address] [place] [address] Care Team Providers Care Wire Bound Box Machine Operator Name Role Phone Unavailable Primary Care Provider Unavailabl e Encounter Details Date Type Department Care Team (Late st Contact Info) Description 10/06/2005 10:44 EST - 10/06/2005 11:59 EST Hospital Encounter [facility] [address] [place] [address] Yovana Callejas MD [address] [place] [address] [phone] Discharge Disposition: Auto Discharge Social [...]
--- OUTSIDE RECORDS SUMMARY | 2024-06-24 02:26 | XMS_ITS | Encounter Summary ---
Author Organization [facility] Address [address] [place] [address] Care Team Providers Care Senior Tax Accountant Name Role Phone Unavailable Primary Care Provider Unavailabl e Encounter Details Date Type Department Care Team (Late st Contact Info) Description 05/15/2008 15:10 EDT Hospital Encounter [facility] [address] [place] [address] Yovana Callejas MD [address] [place] [address] [phone] Social History Tobacco Use Types [...]
--- OUTSIDE RECORDS SUMMARY | 2024-06-24 02:26 | XMS_ITS | Encounter Summary ---
Author Organization [facility] Address [address] [place] [address] Care Team Providers Care Infrastructure Tech Name Role Phone Remedios Mehta MD Primary Care Provider [phone] Encounter Details Date Type Department Care Team (Late st Contact Info) Description 01/12/2009 Before PRISM Converted Visit (Maple) [facility] - Maple conversion [address] [place] [address] Yovana Callejas MD [address] [place] [address] [address] [place] [phone] Social History Tobacco Use Types Packs/Day Years Used Date Smoking Tobacco: Never Assessed Sex and Gender Information Value Date Recorded Sex Assigned at Not on file Gender Identity Female 2021 11:19 EDT Sexual Orientation Not on file documented as of this encounter Progress Notes * Yovana Callejas MD - 12/02/2009 0119 EST DIVISION OF RHEUMATOLOGY PROGRESS/FOLLOWUP NOTE - 01/12/2009 This patient is here in follow up of fibromyalgia and arthralgias. She has been on Lyrica, hcombined that with Neurontin but got very sedated so stopped the Neurontin. Lyrica seems to make her feel alittle bit hollow headed. Did help her pain initially but now she is having peripheral edema, which she finds hard to tolerate. Her left hand is sometimes numb and tingly. Her muscles feel weak as well. She has achiness over her PIPs. She has had some palpitations at times. Her asthma has been flaring up a bit lately. She has lost a bit of weight, which seems to help the asthma somewhat. She is living in her own home, which is great for her stress. Job continues to be stable. She is unable to take ibuprofen because of a history of asthma exacerbations with any aspirin-related compounds. PAST MEDICAL HISTORY Asthma, fibromyalgia, IBS, GERD, and high cholesterol. ALLERGIES: Penicillin, aspirin, codeine, and sulfa. MEDICATION LIST Reviewed and updated in chart. On multiple asthma medications. Plaquenil 200 mg twice daily - also takes Lyrica 25 mg three times a day. REVIEW OF SYSTEMS A 12-organ systems is documented above. Additionally, some dysesthesias in the left hand and some polyuria. EXAM Pleasant, well groomed, well appearing, weight 201. Blood pressure 106/60, pulse 68, respiratory rate is 14. Pain 6 out of 10, elbows, knees, and back. Skin: No rashes. Some bruising in the lower extremities. HEENT: No ocular inflammation. Her chest is clear. No wheezing. Abdomen is obese, soft, and nontender. Gait is within normal limits. Neurologic: Alert, oriented. Hand pit hand 5 out of 5. No then ar atrophy noted. Joints: Osteoarthritic changes over the PIPs, which are tender but non-swollen. Fibromyalgia tender points are present throughout. IMPRESSION: 1. Her fibromyalgia is very active. 2. She has hand osteoarthritis but cannot take nonsteroidals because of asthma and an aspirin sensitivity. PLAN Patient is overly sedated on Lyrica, so we will stop - tapering to one pill for a week and then discontinuing altogether. We will pursue Cymbalta, which may be beneficial. Reviewed with her that thisworks on the chemicals in the brain, involving depression and in pain. Although she does not have symptoms of depression at the present time, her pain does continue to bother her. She is agreeable tothis plan. Follow-up appointment in two months. She will call me if her symptoms have not improvement significantly in a month, and we will pursue further testing. Signed by Yovana Callejas MD 01/14/2009 10:29 Yovana Callejas MD - Yovana Callejas MD - RICHI Job ID: [id number] Doc ID: [id number] cc: Remedios Strong MD documented in this encounter Plan of Treatment Not on file documented as of this encounter Visit Diagnoses Not on filedocumented in this encounter Care Teams Infrastructure Tech Relationship Specialty Start Date End Date Remedios Mehta MD [address] [place] [phone] PCP - General 02/19/09 01/04/15 documented as of this encounter
--- OUTSIDE RECORDS SUMMARY | 2024-06-24 02:26 | XMS_ITS | Encounter Summary ---
Author Organization [facility] Address [address] [place] [address] Care Team Providers Care Night Shift Supervisor Name Role Phone Unavailable Primary Care Provider Unavailabl e Encounter Details Date Type Department Care Team (Late st Contact Info) Description 06/09/2006 11:48 EDT - 06/09/2006 11:59 EDT Hospital Encounter [facility] [place] [facility] [address] [place] [address] Brook Cifuentes MD [address] [phone] Discharge Disposition: Auto Discharge Social History Tobacco [...]
--- OUTSIDE RECORDS SUMMARY | 2024-06-24 02:26 | XMS_ITS | Encounter Summary ---
Author Organization [facility] Address [address] [place] [address] Care Team Providers Care Photographer Assistant Name Role Phone Unavailable Primary Care Provider Unavailabl e Encounter Details Date Type Department Care Team (Late st Contact Info) Description 05/26/2008 11:31 EDT Hospital Encounter [facility] [place] [address] [place] [address] Remedios Mehta MD [address] [place] [phone] Social History Tobacco Use Types Packs/Day [...]
--- OUTSIDE RECORDS SUMMARY | 2024-06-24 02:26 | XMS_ITS | Encounter Summary ---
Author Organization [facility] Address [address] [place] [address] Care Team Providers Care Factory Laborer Name Role Phone Unavailable Primary Care Provider Unavailabl e Encounter Details Date Type Department Care Team (Late st Contact Info) Description 08/04/2008 13:12 EDT Hospital Encounter [facility] [place] [facility] [address] [place] [address] Cathryn Garza, PA [address] [place], [place] [address] Social History Tobacco Use Types Packs/Day Years [...]
--- OUTSIDE RECORDS SUMMARY | 2024-06-24 02:26 | XMS_ITS | Encounter Summary ---
Author Organization [facility] Address [address] [place] [address] Care Team Providers Care Dredge Runner Name Role Phone Unavailable Primary Care Provider Unavailabl e Encounter Details Date Type Department Care Team (Latest Contact Info) Description 02/11/2009 12:52 EDT Hospital Encounter [facility] [address] [place] [address] Cathryn Garza, MARIA [address] [place] [address] Discharge Disposition: Auto Discharge Social History Tobacco [...]
--- OUTSIDE RECORDS SUMMARY | 2024-06-24 02:26 | XMS_ITS | Encounter Summary ---
Author Organization [facility] Address [address] [place] [address] Care Team Providers Care Trench Pipe Layer Name Role Phone Unavailable Primary Care Provider Unavailabl e Encounter Details Date Type Department Care Team (Late st Contact Info) Description 09/07/2005 14:19 EST Hospital Encounter [facility] [address] [place] [address] David Rehman MD [address] [facility] [place] [address] Social History Tobacco Use Types Packs/Day Years [...]
--- OUTSIDE RECORDS SUMMARY | 2024-06-24 02:26 | XMS_ITS | Encounter Summary ---
Author Organization [facility] Address [address] [place] [address] Care Team Providers Care Cash Applications Associate Name Role Phone Remedios Mehta MD Primary Care Provider [phone] Encounter Details Date Type Department Care Team (Late st Contact Info) Description 02/24/2009 12:30 EDT - 02/24/2009 23:59 EDT Hospital Encounter [facility] [address] [place] [address] Noemi Gonsalez MD [address] [facility] [address] [phone] Social History Tobacco Use Types Packs/Day Years Used Date Smoking Tobacco: Never Assessed Sex and Gender Information Value Date Recorded Sex Assigned at Not on file Gender Identity Female 2021 11:19 EDT Sexual Orientation Not on file documented as of this encounter Discharge Disposition Disposition Code Departure Means Destination Home documented in this encounter Plan of Treatment Not on file documented as of this encounter Visit Diagnoses Not on filedocumented in this encounter Care Teams Cash Applications Associate Relationship Specialty Start Date End Date Remedios Mehta MD [address] [place] [phone] PCP - General 02/19/09 01/04/15 documented as of this encounter
--- OUTSIDE RECORDS SUMMARY | 2024-06-24 02:26 | XMS_ITS | Encounter Summary ---
Author Organization [facility] Address [address] [place] [address] Care Team Providers Care Side Panel Padder Name Role Phone Remedios Mehta MD Primary Care Provider [phone] Encounter Details Date Type Department Care Team (Late st Contact Info) Description 12/16/2005 Before PRISM Converted Visit (Maple) [facility] - Maple conversion [address] [place] [address] MD [address] [place] [address] Social History Tobacco Use Types Packs/Day Years Used Date Smoking Tobacco: Never Assessed Sex and Gender Information Value Date Recorded Sex Assigned at Not on file Gender Identity Female 2021 11:19 EDT Sexual Orientation Not on file documented as of this encounter Progress Notes * Senthil, Conv Revenue Enforcement Collection Agent - 12/31/2009 0455 EST DIVISION OF PULMONOLOGY PROGRESS/FOLLOWUP NOTE - 12/16/2005 PROBLEM: Asthma and vocal cord dysfunction. SUBJECTIVE: Ms. Husain returns today stating she had done fairly well. However, today she did get into some insulation and that caused her some problems with her breathing. She uses her albuterol about twice a day. She did have one episode of thrush,which seemed to resolve on its own. She has not been doing her speech therapy exercises. She reports that she has been through too much life stress to do these exercises. OBJECTIVE: Weight 199, temperature 35.7, sat 97% on room air, blood pressure 118/70, pulse 77, respirations 16. Oropharynx shows no evidence of thrush. The lungs are clear to auscultation, however, she does cough with deep inspiration. ASSESSMENT: Asthma, relatively stable and associated with collagen vascular disease and vocal cord dysfunction. She has had difficulty maintaining her speech therapy exercises. However, I think when she goes through stresses, these are the moments where it is most important to do her speech therapy. I spent some time discussingwith her the importance of this, especially as the potential negative consequences are of significant meaning and that she would end up on steroids or hospitalized. She has had a flu shot this year and had an pneumonia vaccine last year. PLAN: 1. Followup in the spring with spirometry. 2. I wrote out a prescription for Advair 500/50, Accolate, and albuterol p.r.n. Signed by Mauro Lane MD 12/19/2005 12:30 Fortino Varela MD Mauro Lane MD - Mauro Lane MD P - do Job ID: [id number] Document ID: [id number] cc: Remedios Strong MD documented in this encounter Plan of Treatment Not on file documented as of this encounter Visit Diagnoses Not on filedocumented in this encounter Care Teams Side Panel Padder Relationship Specialty Start Date End Date Remedios Mehta MD [address] [place] [phone] PCP - General 02/19/09 01/04/15 documented as of this encounter
--- OUTSIDE RECORDS SUMMARY | 2024-06-24 02:26 | XMS_ITS | Encounter Summary ---
Author Organization [facility] Address [address] [place] [address] Care Team Providers Care Motorcoach Operator Name Role Phone Unavailable Primary Care Provider Unavailabl e Encounter Details Date Type Department Care Team (Late st Contact Info) Description 08/29/2005 8:20 EST - 08/29/2005 11:59 EST Hospital Encounter [address] [address] Brook Cifuentes MD [address] [phone] Discharge Disposition: Auto Discharge Social History Tobacco [...] Priority Date/Time Associated Diagnosis Comments RAD US PELVIS TRANSABDOMINAL AND TRANSVAGINAL 08/29/2005 8:55 EST documented in this encounter Results * RAD US PELVIS TRANSABDOMINAL AND TRANSVAGINAL (08/29/2005 8:55 EST) Anatomical Region Laterality Modality Other 08/29/2005 8:55 EST Narrative 05/29/2009 0:33 EDT DYSFUNCTIONAL UTERINE BLEEDING TRANSABDOMINAL AND TRANSVAGINAL SCANS The uterus is normal in size measuring 10.9x5.1x6.7cm. ??There is one hypoechoic intramuscular fibroid which measures 1.5x1.1x1.1cm, this does not abut the endometrium. ??The endometrial lining is normal in thickness and appearance. ??It measures 1.1cm in double wall thickness (the patient is presenting menstruating). ??Numerous nabothian cysts are present in the cervix. The right ovary is visualized and appears normal. It measures 2.4x1.9x2.3cm. ??There is a trace amount of free fluid adjacent to the right ovary. ??The left ovary was not confidently visualized. However, no left adnexal mass is identified. The iliac vessels are normal. IMPRESSION: Small uterine fibroid. ??Non-visualization of the left ovary. Otherwise normal exam. D: ??08/29/05 T: ??08/29/05 /anuj Procedure Note Mukesh Robles MD - 05/29/2009 DYSFUNCTIONAL UTERINE BLEEDING TRANSABDOMINAL AND TRANSVAGINAL SCANS The uterus is normal in size measuring 10.9x5.1x6.7cm. There is one hypoechoic intramuscular fibroid which measures 1.5x1.1x1.1cm, this does not abut the endometrium. The endometrial lining is normal in thickness and appearance. It measures 1.1cm in double wall thickness (the patient is presenting menstruating). Numerous nabothian cysts are present in the cervix. The right ovary is visualized and appears normal. It measures 2.4x1.9x2.3cm. There is a trace amount of free fluid adjacent to the right ovary. The left ovary was not confidently visualized. However, no left adnexal mass is identified. The iliac vessels are normal. IMPRESSION: Small uterine fibroid. Non-visualization of the left ovary. Otherwise normal exam. /anuj Brook Cifuentes MD IMG US ORDERABLES documented in this encounter Visit Diagnoses Not on filedocumented in this encounter
--- OUTSIDE RECORDS SUMMARY | 2024-06-24 02:26 | XMS_ITS | Encounter Summary ---
Author Organization [facility] Address [address] [place] [address] Care Team Providers Care Distribution Center Administrator Name Role Phone Unavailable Primary Care Provider Unavailabl e Encounter Details Date Type Department Care Team (Latest Contact Info) Description 04/28/2006 10:01 EDT - 04/28/2006 11:59 EDT Hospital Encounter [facility] [address] [place] [address] Remedios Mehta MD [address] [place] [phone] Discharge Disposition: Auto Discharge Social History [...]
--- OUTSIDE RECORDS SUMMARY | 2024-06-24 02:26 | XMS_ITS | Encounter Summary ---
Author Organization [facility] Address [address] [place] [address] Care Team Providers Care Psychiatry Teacher Name Role Phone Unavailable Primary Care Provider Unavailabl e Encounter Details Date Type Department Care Team (Latest Contact Info) Description 09/14/2008 17:[address] [facility] [address] [place] [address] Sam Griffith MD Discharge Disposition: Auto Discharge [...] Name Priority Date/Time Associated Diagnosis Comments MR CERVICAL LUMBER SPINE WO CONTRAST 09/14/2008 19:29 EST documented in this encounter Results * MR C,L SPINE WO CONTRAST (09/14/2008 19:29 EST) Anatomical Region Laterality Modality Other 09/14/2008 19:2 9 EST Narrative 03/16/2009 8:28 EDT chronic neck and back pain Lumbar spine MR without contrast Cervical spine MR without contrast Clinical Indication: ??Chronic neck pain and chronic lower back pain. Lumbar spine MR technique: Sagittal T1, sagittal T2, coronal T2, and transaxial T1 and T2 images are obtained without the use of contrast, and there are no prior lumbar spine MR studies. Findings: On the sagittal view alignment is anatomic and conus medullaris ends normally at the L1-L2 level. There is loss of normal disc space signal within the intervertebral discs consistent with desiccation and degenerative disc disease. There is some minor curvature of the lumbar spine, convex to the right. Uterus demonstrate heterogeneous signal and there may be a hypointense fibroid within it. Ultrasound may be helpful for further assessment. Multilevel degenerative change is present in the lumbar spine including facet joint hypertrophic osteophytes and ligamentum flavum hypertrophy, and fluid in the facet joints at both the L4-L5 and L5-S1 levels on the right and on the left. On transaxial imaging, at the L2-L3 level, no focal herniation or foraminal stenosis is present. At the L3-L4 level, no focal herniation or foraminal stenosis is present. At the L4-L5 level, a mild concentric disc bulge is present. There is some minor left foraminal narrowing. There is no central canal stenosis. At the L5-S1 level, a mild concentric disc bulge is present with mild foraminal narrowing bilaterally but no central canal stenosis. The 1st segment of the sacrum is a transitional vertebral body. Impression Lumbar Spine MR: 1. Concentric disc bulges at L4-L5 and L5-S1 levels and but no maegan disc herniation. 2. Degenerative facet arthropathy, particularly at L4-L5 and L5-S1 levels. 3. Probable fibroid uterus. Ultrasound could be obtained for further characterization. Cervical spine MR technique: Sagittal T1, sagittal T2, transaxial T2 gradient, and bilateral sagittal oblique imaging is obtained of the cervical spine without the use of contrast, and there are no prior studies. Findings: There is a kyphosis present in the cervical spine maximum at the C6 level. Craniovertebral junction is normal. Spinal cord is unremarkable with respect to size, position and signal intensity. Minor degenerative change is seen in the cervical spine including marginal osteophytes and uncovertebral spurring. There is loss of normal disc space signal consistent with desiccation and degenerative disc disease from C3-C4 through to C6-C7 levels. At the C2-C3, C3-C4, and C4-C5 levels no focal herniation is seen. At the C5-C6 level, minor disc-osteophyte complex is present slightly more eccentric to the left. No foraminal stenosis or central canal compromise is seen. At the C6-C7 level there is diffuse disc osteophyte complex and a more focal area of eccentricity, likely small herniation which is right paracentral-foraminal. There is a mild degree of right-sided foraminal narrowing. At the C7-T1 level, no disc herniation or foraminal stenosis is present. Impression Cervical Spine MR: 1. Degenerative disc disease with small right paracentral-foraminal disc herniation at C6-C7 level with mild right foraminal narrowing in which there is prominent uncovertebral spurring at this level contributing to the degree of right foraminal stenosis and minor disc-osteophyte complex at C5-C6 level. 2. Mild degenerative changes in the cervical spine. 3. Kyphosis maximum at C6 level. Procedure Note Hrajit Arrington MD - 03/16/2009 chronic neck and back pain Lumbar spine MR without contrast Cervical spine MR without contrast Clinical Indication: Chronic neck pain and chronic lower back pain. Lumbar spine MR technique: Sagittal T1, sagittal T2, coronal T2, and transaxial T1 and T2 images are obtained without the use of contrast, and there are no prior lumbar spine MR studies. Findings: On the sagittal view alignment is anatomic and conus medullaris ends normally at the L1-L2 level. There is loss of normal disc space signal within the intervertebral discs consistent with desiccation and degenerative disc disease. There is some minor curvature of the lumbar spine, convex to the right. Uterus demonstrate heterogeneous signal and there may be a hypointense fibroid within it. Ultrasound may be helpful for further assessment. Multilevel degenerative change is present in the lumbar spine including facet joint hypertrophic osteophytes and ligamentum flavum hypertrophy, and fluid in the facet joints at both the L4-L5 and L5-S1 levels on the right and on the left. On transaxial imaging, at the L2-L3 level, no focal herniation or foraminal stenosis is present. At the L3-L4 level, no focal herniation or foraminal stenosis is present. At the L4-L5 level, a mild concentric disc bulge is present. There is some minor left foraminal narrowing. There is no central canal stenosis. At the L5-S1 level, a mild concentric disc bulge is present with mild foraminal narrowing bilaterally but no central canal stenosis. The 1st segment of the sacrum is a transitional vertebral body. Impression Lumbar Spine MR: 1. Concentric disc bulges at L4-L5 and L5-S1 levels and but no maegan disc herniation. 2. Degenerative facet arthropathy, particularly at L4-L5 and L5-S1 levels. 3. Probable fibroid uterus. Ultrasound could be obtained for further characterization. Cervical spine MR technique: Sagittal T1, sagittal T2, transaxial T2 gradient, and bilateral sagittal oblique imaging is obtained of the cervical spine without the use of contrast, and there are no prior studies. Findings: There is a kyphosis present in the cervical spine maximum at the C6 level. Craniovertebral junction is normal. Spinal cord is unremarkable with respect to size, position and signal intensity. Minor degenerative change is seen in the cervical spine including marginal osteophytes and uncovertebral spurring. There is loss of normal disc space signal consistent with desiccation and degenerative disc disease from C3-C4 through to C6-C7 levels. At the C2-C3, C3-C4, and C4-C5 levels no focal herniation is seen. At the C5-C6 level, minor disc-osteophyte complex is present slightly more eccentric to the left. No foraminal stenosis or central canal compromise is seen. At the C6-C7 level there is diffuse disc osteophyte complex and a more focal area of eccentricity, likely small herniation which is right paracentral-foraminal. There is a mild degree of right-sided foraminal narrowing. At the C7-T1 level, no disc herniation or foraminal stenosis is present. Impression Cervical Spine MR: 1. Degenerative disc disease with small right paracentral-foraminal disc herniation at C6-C7 level with mild right foraminal narrowing in which there is prominent uncovertebral spurring at this level contributing to the degree of right foraminal stenosis and minor disc-osteophyte complex at C5-C6 level. 2. Mild degenerative changes in the cervical spine. 3. Kyphosis maximum at C6 level. Sam Griffith MD [facility] MRI ORDERABLES documented in this encounter Visit Diagnoses Not on filedocumented in this encounter
--- OUTSIDE RECORDS SUMMARY | 2024-06-24 02:26 | XMS_ITS | Encounter Summary ---
Author Organization [facility] Address [address] [place] [address] Care Team Providers Care Dredge Mechanic Name Role Phone Unavailable Primary Care Provider Unavailabl e Encounter Details Date Type Department Care Team (Latest Contact Info) Description 10/07/2008 8:25 EST - 10/07/2008 11:59 [facility] Hospital Encounter [facility] conversion [address] [place] [address] Sam Griffith MD Discharge Disposition: Auto Discharge [...]
--- OUTSIDE RECORDS SUMMARY | 2024-06-24 02:26 | XMS_ITS | Encounter Summary ---
Author Organization [facility] Address [address] [place] [address] Care Team Providers Care Neurological Surgery Teacher Name Role Phone Unavailable Primary Care Provider Unavailabl e Encounter Details Date Type Department Care Team (Latest Contact Info) Description 08/30/2005 18:28 EST Hospital Encounter [facility] Emergency Department - [facility] [address] [place] [address] Emergency, Default, MD Discharge Disposition: Home or Self Care [...] Comments COMPLETE BLOOD COUNT AND DIFFERENTIAL Routine 08/30/2005 19:55 EST documented in this encounter Results * (ABNORMAL) HEMAGRAM AND DIFFERENTIAL (08/30/2005 19:55 EST) WBC 8.39 4.0 - 12.4 K/cmm [facility] RBC 4.04 3.86 - 5.04 M/cmm [facility] Hemoglobin 12.7 11.6 - 15.2 gm/dl [facility] HCT 36.7 34.9 - 44.4 % [facility] MCV 91 81 - 98 fl [facility] MCH 31.5 26.7 - 33.3 pg [facility] MCHC 34.7 32.1 - 35.9 gm/dl [facility] PLT 354(H) 141 - 320 K/cmm [facility] RDW-CV 11.9 11.7 - 14.6 % [facility] % Neutrophils 55.8 45.5 - 79.7 % [facility] % Lymphocytes 31.9 15.0 - 46.8 % [facility] % Monocytes 8.0 1.8 - 12.0 % [facility] % Eosinophils 3.2 0.6 - 6.9 % [facility] % Basophils 1.1 0.2 - 1.4 % [facility] ABS Neutrophils 4.69 2.20 - 8.85 K/cmm [facility] ABS Lymphs 2.67 1.09 - 3.30 K/cmm [facility] ABS Monocytes 0.67 0.1 - 0.8 K/cmm [facility] ABS Eosinophils 0.27 0.03 - 0.61 K/cmm [facility] ABS Basophils 0.09 0.01 - 0.11 K/cmm [facility] Type of Diff: Automated [facility] 08/30/2005 19:5 5 EST 08/30/2005 20:12 EST Default Emergency MD PACKAGES & DNA PROB E ORDERABLES [facility] [address] [place] [address] documented in this encounter Visit Diagnoses Not on filedocumented in this encounter
--- OUTSIDE RECORDS SUMMARY | 2024-06-24 02:26 | XMS_ITS | Encounter Summary ---
Author Organization [facility] Address [address] [place] [address] Care Team Providers Care Chief Reservoir Engineering Name Role Phone Unavailable Primary Care Provider Unavailabl e Encounter Details Date Type Department Care Team (Late st Contact Info) Description 09/15/2005 15:32 EST Hospital Encounter [facility] [address] [place] [address] David Rehman MD [address] [facility] [place] [address] Social History Tobacco Use Types Packs/Day Years [...]
--- OUTSIDE RECORDS SUMMARY | 2024-06-24 02:26 | XMS_ITS | Encounter Summary ---
Author Organization [facility] Address [address] [place] [address] Care Team Providers Care Internal Auditor Name Role Phone Remedios Mehta MD Primary Care Provider [phone] Encounter Details Date Type Department Care Team (Latest Contact Info) Description 07/24/2009 8:19 EDT - 07/24/2009 23:59 EDT Hospital Encounter [facility] [address] [place] [address] Remedios Mehta MD [address] [place] [phone] Discharge Disposition: Home or Self Care [...] Associated Diagnosis Comments COMPLETE BLOOD COUNT Routine 07/24/2009 8:27 EDT TSH Routine 07/24/2009 8:27 EDT LIPID PROFILE (INCLUDES CHOLESTEROL, TRIGLYCERIDES, HDL, LDL) Routine 07/24/2009 8:27 EDT COMPREHENSIVE METABOLIC PANEL (CMP) Routine 07/24/2009 8:27 EDT documented in this encounter Results * TSH (07/24/2009 8:27 EDT) TSH 1.18 0.35 - 5.00 uIU/ml [facility] Blood specimen (specimen) 07/24/2009 8:27 EDT 07/24/2009 8:29 EDT Remedios Mehta MD CHEMISTRY & BLOOD GAS ORDERABLES Performing Organization Address [facility] Co de Phone Number [facility] [address] [place] [address] * (ABNORMAL) LIPID PROFILE (07/24/2009 8:27 EDT) Pathologist [facility] Cholesterol 221 mg/dl [facility] Comment: Desirable:<200 Borderline High:200-239 High:>pc=181 Triglycerides 175(H) 35 - 160 mg/dl [facility] HDL 49 mg/dl [facility] Comment: Low:<40 High(Desirable):>or=60 LDL, Calculated 137 mg/dl [facility] Comment: Optimal:<100 Above optimal:100-129 Borderline High:130-159 High:160-189 Very High:>kc=424 Chol/HDL Ratio 4.5 [facility] Fasting? Yes Performed at [facility], [facility], [place] [facility] Blood specimen (specimen) 07/24/2009 8:27 EDT 07/24/2009 8:29 EDT Remedios Mehta MD CHEMISTRY & BLOOD GAS ORDERABLES Performing Organization Address [facility] de Phone Number [facility] [address] [place] [address] * (ABNORMAL) HEMAGRAM (07/24/2009 8:27 EDT) Pathologist [facility] WBC 7.01 4.0 - 12.4 K/cmm [facility] RBC 4.34 3.86 - 5.04 M/cmm [facility] Hemoglobin 13.6 11.6 - 15.2 gm/dl [facility] HCT 38.4 34.9 - 44.4 % [facility] MCV 89 81 - 98 fl [facility] MCH 31.3 26.7 - 33.3 pg [facility] MCHC 35.4 32.1 - 35.9 gm/dl [facility] PLT 330(H) 141 - 320 K/cmm [facility] RDW-CV 10.8(L) 11.7 - 14.6 % [facility] Comment:Performed at [facility], [place], [place] Blood specimen (specimen) 07/24/2009 8:27 EDT 07/24/2009 8:29 EDT Remedios Mehta MD HEMATOLOGY & PF4 ORDERABLES Performing Organization Address City/State/[facility] Co de Phone Number [facility] [address] [place] [address] * COMPREHENSIVE METABOLIC PANEL (07/24/2009 8:27 EDT) Potassium 4.5 3.5 - 5.0 mEq/L [facility] Sodium 145 136 - 145 mEq/L [facility] Chloride 105 96 - 110 mEq/L [facility] CO2 31 24 - 32 mEq/L [facility] Alkaline Phosphatase 71 38 - 126 U/L [facility] Bilirubin, Total 0.8 0.2 - 1.3 mg/dl [facility] AST 20 15 - 46 U/L [facility] ALT 25 9 - 52 U/L [facility] Albumin 4.4 3.4 - 4.9 g/dl [facility] Total Protein 7.0 6.5 - 8.3 g/dl [facility] Creatinine 0.87 0.7 - 1.5 mg/dl [facility] GFR, Calculated >60 ml/min/1. 73m2 [facility] BUN 13 10 - 26 mg/dl [facility] Calcium 9.5 8.5 - 10.5 mg/dl [facility] Calculated Calcium 9.5 8.5 - 10.5 mg/dl [facility] Glucose, Serum 100 70 - 100 mg/dl [facility] Fasting? Yes Performed [facility] [place], [place] [facility] Blood specimen (specimen) 07/24/2009 8:27 EDT 07/24/2009 8:29 EDT Remedios Mehta MD CHEMISTRY & BLOOD GAS ORDERABLES Performing Organization Address City/State/[facility] Co de Phone Number [facility] [address] [place] [address] documented in this encounter Visit Diagnoses Not on filedocumented in this encounter Care Teams Internal Auditor Relationship Specialty Start Date End Date Remedios Mehta MD [address] [place] [phone] PCP - General 02/19/09 01/04/15 documented as of this encounter
--- OUTSIDE RECORDS SUMMARY | 2024-06-24 02:26 | XMS_ITS | Encounter Summary ---
Author Organization [facility] Address [address] [place] [address] Care Team Providers Care Fraternity House Cook Name Role Phone Remedios Mehta MD Primary Care Provider + [phone] Encounter Details Date Type Department Care Team (Latest Contact Info) Description 08/13/2009 13:13 EDT - 08/13/2009 23:59 EDT Hospital Encounter [facility] Neurophysiology - [facility] [place] [address] [place] [address] Unknown, ProviderMD MD Noé Discharge Disposition: Home or Self Care Social [...] on filedocumented in this encounter Care Teams Fraternity House Cook Relationship Specialty Start Date End Date Remedios Mehta MD [address] [place] [phone] PCP - General 02/19/09 01/04/15 documented as of this encounter
--- OUTSIDE RECORDS SUMMARY | 2024-06-24 02:26 | XMS_ITS | Encounter Summary ---
Author Organization [facility] Address [address] [place] [address] Care Team Providers Care Crm Administrator Name Role Phone Unavailable Primary Care Provider Unavailabl e Encounter Details Date Type Department Care Team (Late st Contact Info) Description 04/20/2006 8:59 EDT Hospital Encounter [facility] conversion [address] [place] [address] Remedios Mehta MD [address] [place] [phone] Social History Tobacco Use Types Packs/Day [...] Procedure Name Priority Date/Time Associated Diagnosis Comments PROTEIN, TOTAL Routine 04/20/2006 9:16 EDT HEMOGLOBIN A1C Routine 04/20/2006 9:16 EDT GLUCOSE, SERUM Routine 04/20/2006 9:16 EDT LIPID PROFILE (INCLUDES CHOLESTEROL, TRIGLYCERIDES, HDL, LDL) Routine 04/20/2006 9:16 EDT documented in this encounter Results * TOTAL PROTEIN (04/20/2006 9:16 EDT) Total Protein 7.0 6.5 - 8.3 g/dl [facility] 04/20/2006 9:16 EDT 04/20/2006 16:54 EDT Wale Garcia MD CHEMISTRY & BLO OD GAS ORDERABLES Performing Organization Address [facility] de Phone Number [facility] [address] [place] [address] * GLUCOSE, SERUM (04/20/2006 9:16 EDT) Glucose, Serum 79 70 - 100 mg/dl [facility] 04/20/2006 9:16 EDT 04/20/2006 16:54 EDT Wale Garcia MD CHEMISTRY & BLO OD GAS ORDERABLES Performing Organization Address [facility] de Phone Number [facility] [address] [place] [address] * LIPID PROFILE (INCLUDES CHOLESTEROL, TRIGLYCERIDES, HDL, LDL) (04/20/2006 9:16 EDT) Cholesterol 223 mg/dl [facility] Comment: Desirable:<200 Borderline:200-239 High Risk:>yl=127 Triglycerides 119 35 - 160 mg/dl [facility] HDL 49 mg/dl [facility] Comment: Highly Desirable:>60 Desirable:35-60 High Risk:<35 LDL, Calculated 150 mg/dl [facility] Comment: Desirable:<130 Borderline:130-159 High Risk:>hp=382 Chol/HDL Ratio 4.6 [facility] Fasting? Yes [facility] 04/20/2006 9:16 EDT 04/20/2006 16:54 EDT Wale Garcia MD CHEMISTRY & BLO OD GAS ORDERABLES Performing Organization Address City/[facility] Co de Phone Number [facility] [address] [place] [address] * HEMOGLOBIN A1C (04/20/2006 9:16 EDT) Hemoglobin A1C 5.6 % [facility] Comment: Reference Range: <6% Normal Range <7% Recommended goal by ADA guidelines 7-8% Suboptimal by ADA guidelines >8% Further action suggested by ADA guidelines 04/20/2006 9:16 EDT 04/20/2006 16:54 EDT Wale Garcia MD CHEMISTRY & BLO OD GAS ORDERABLES Performing Organization Address City/[facility] Co de Phone Number [facility] [address] [place] [address] documented in this encounter Visit Diagnoses Not on filedocumented in this encounter Additional Health Concerns Infection Onset Date Last Indicated Resolved Time Rule-Out C. difficile 2021 04/16/20212020 13:40 EDT C. difficile 04/16/2021 04/16/2021 06/15/2021 22:1 5 EDT documented as of this encounter
--- OUTSIDE RECORDS SUMMARY | 2024-06-24 02:26 | XMS_ITS | Encounter Summary ---
Author Organization [facility] Address [address] [place] [address] Care Team Providers Care Professor Of History Name Role Phone Unavailable Primary Care Provider Unavailabl e Encounter Details Date Type Department Care Team (Latest Contact Info) Description 02/08/2006 9:05 EDT - 02/08/2006 11:59 EDT Hospital Encounter [address] [address] Remedios Mehta MD [address] [place] [phone] Discharge Disposition: Auto Discharge Social History [...] Associated Diagnosis Comments MA MAMMO SCREENING DIGITAL 02/08/2006 9:29 EDT documented in this encounter Results * MA MAMMO SCREENING DIGITAL (02/08/2006 9:29 EDT) Anatomical Region Laterality Modality Other 02/08/2006 9:29 EDT Narrative 05/16/2009 12:10 EDT ROUTINE Comparison is made to films from 01/17/2005 and films from 12/25/2002. Bilateral Breast Findings: (cad used to interpret routine digital): There are scattered fibroglandular densities. ??No significant masses, calcifications or other abnormalities are seen. IMPRESSION: BILATERAL BREAST - CATEGORY 1 Negative, no evidence of malignancy. Normal interval follow-up is recommended in 12 months. OVERALL ASSESSMENT - NEGATIVE END OF IMPRESSION Procedure Note Tio Mcdowell MD - 05/16/2009 ROUTINE Comparison is made to films from 01/17/2005 and films from 12/25/2002. Bilateral Breast Findings: (cad used to interpret routine digital): There are scattered fibroglandular densities. No significant masses, calcifications or other abnormalities are seen. IMPRESSION: BILATERAL BREAST - CATEGORY 1 Negative, no evidence of malignancy. Normal interval follow-up is recommended in 12 months. OVERALL ASSESSMENT - NEGATIVE END OF IMPRESSION Remedios Brook Mehta MD IMG MAMMOGRAPHY O RDERABLES documented in this encounter Visit Diagnoses Not on filedocumented in this encounter
--- OUTSIDE RECORDS SUMMARY | 2024-06-24 02:26 | XMS_ITS | Encounter Summary ---
Author Organization [facility] Address [address] [place] [address] Care Team Providers Care Merchandise Team Manager Name Role Phone Remedios Mehta MD Primary Care Provider + -[phone] Encounter Details Date Type Department Care Team (Late st Contact Info) Description 09/15/2005 Results Only [facility] [address] [place], [place] [id number] Christian Rehman MD [address] [facility] [place], [place] [id number] Social History Tobacco Use Types Packs/Day Years [...] Date/Time Associated Diagnosis Comments SURGICAL PATHOLOGY Routine 09/15/2005 0:00 EST documented in this encounter Results * SURGICAL PATHOLOGY (09/15/2005 0:00 EST) Pathology Report: SURGICAL PATHOLOGY REPORT Reports generated via electronic interface contain original data; however they are lacking the format of the original report. Caution should be taken when reading/interpreti ng unformatted reports. Name: ? CHERELLE HUSAIN ? Accession #: ? [id number] ? : ? 1960 (Age: 45) ??F ? Collect Date: ? 09/15/2005 ? Location: ? [facility] ? Receive Date: ? 09/15/2005 ? Provider: CHRISTIAN ERHMAN MD Copy to: ? Final Pathologic Diagnosis: ? Endometrium, biopsy: - ??Mixed early secretory and weakly proliferative endometrium with extensive tubal metaplasia. ??See comment. ?? Comment: ? The histologic features are consistent with exogenous hormone effect. Document reviewed and electronically signed by: KELLY KATHLEEN MD Report ??Date: 09/20/2005 10:01 By the signature above, the attending physician certifies that he/she has personally conducted a gross and/or microscopic examination of the described specimens and rendered or confirmed the above diagnosis. Specimen(s) Received: ? Endo bx Clinical History: ? Last day of Provera; clinical diagnosis code: ??626.6 Gross Description: ? Received in formalin labelled Burritt and endo bx are 1.0 x 1.0 x 0.2 cm of monahan-richards irregular soft tissue fragments. ??The specimen is entirely submitted in one cassette following filtration. ??(Pipo Drake)/[facility] End of Report [facility] 09/15/2005 09/15/2005 8:4 4 EST Christian Rehman MD PATHOLOGY ORDERABLES [facility] [address] [place] [address] documented in this encounter Visit Diagnoses Not on filedocumented in this encounter Care Teams Merchandise Team Manager Relationship Specialty Start Date End Date Remedios Mehta MD [address] [place] [phone] PCP - General 02/19/09 01/04/15 documented as of this encounter
--- OUTSIDE RECORDS SUMMARY | 2024-06-24 02:26 | XMS_ITS | Encounter Summary ---
Author Organization [facility] Address [address] [place] [address] Care Team Providers Care Procurement Agent Name Role Phone Unavailable Primary Care Provider Unavailabl e Encounter Details Date Type Department Care Team (Latest Contact Info) Description 08/08/2008 14:02 EDT Hospital Encounter [facility] [address] [place] [address] Cathryn Garza, MARIA [address] [place] [address] Discharge Disposition: Auto Discharge Social History Tobacco [...]
--- OUTSIDE RECORDS SUMMARY | 2024-06-24 02:26 | XMS_ITS | Encounter Summary ---
Author Organization [facility] Address [address] [place] [address] Care Team Providers Care Supervisor Vat House Name Role Phone Unavailable Primary Care Provider Unavailabl e Encounter Details Date Type Department Care Team (Late st Contact Info) Description 12/12/2006 11:00 [facility] Hospital Encounter [facility] [address] [place] [address] Remedios Mehta MD [address] [place] [phone] Social History Tobacco Use Types Packs/Day [...]
--- OUTSIDE RECORDS SUMMARY | 2024-06-24 02:26 | XMS_ITS | Encounter Summary ---
Author Organization [facility] Address [address] [place] [address] Care Team Providers Care Rental Boats Caretaker Name Role Phone Remedios Mehta MD Primary Care Provider + -[phone] Encounter Details Date Type Department Care Team (Late st Contact Info) Description 05/15/2008 Before [facility] Converted Visit ([facility]) [facility] [address] [place] [address] Yovana Callejas MD [address] [place] [address] [phone] Social History Tobacco Use Types Packs/Day Years Used Date Smoking Tobacco: Never Assessed Sex and Gender Information Value Date Recorded Sex Assigned at Not on file Gender Identity Female 2021 11:19 EDT Sexual Orientation Not on file documented as of this encounter Progress Notes * Yovana Callejas MD - 07/31/2009 1140 EDT DIVISION OF RHEUMATOLOGY PROGRESS/FOLLOWUP NOTE - 05/15/2008 The patient is here in followup of inflammatory polyarthritis and fibromyalgia. SUBJECTIVE She has returned to the [facility] from [place]. She had moved there for a new relationship but it didn't work out. She also did not like the cultural change. The patient saw a doctorthere who told her she might have gout and wanted to start her on treatment but the patient refusedbecause she was relocating. The patient had some chest pain and had equivocal cardiac stress test and was also noted to have high cholesterol but no treatment has been initiated. She is concerned about this because she has a family history of heart disease. The patient had quit smoking many years ago and hardly ever drinks alcohol. Today, she is having some pain mostly in her back. She would like to start aquatic therapy but cannot afford to right now. Her insurance is in flux. She has occasional stomach pain, some anxiety, otherwise feels fine. PAST MEDICAL HISTORY Anxiety, asthma, and inflammatory polyarthritis. ALLERGIES Penicillin, aspirin, codeine, and sulfa. MEDICATIONS 1. Advair 1 puff twice daily. 2. Accolate 20 mg twice daily. 3. Calcium. 4. Albuterol as needed. 5. Trazodone 50 mg at night as needed. 6. Plaquenil 200 mg twice daily. 7. Protonix 40 mg twice daily. 8. Multivitamin. 9. Loratadine 10 mg. 10. Amitiza for irritable bowel syndrome. REVIEW OF SYSTEMS Her review of systems is stated above. No additional complaints on the remainder of review of systems. EXAM: She is pleasant and well-appearing. Height is 60.25 inches. Blood pressure 100/60. Pulse 80. Respiratory rate 14. Weight 207. Pain 8-9/10 in hands and knees. Skin: No abnormalities. HEENT: No ocular inflammation. Her chest is clear. Abdomen: Soft and nontender. Gait is within normal limits. My ofascialtender points are present. IMPRESSION 1. Fibromyalgia: Very active. 2. Inflammatory polyarthritis, no evidence of gout. I do not support starting gout therapy. PLAN: 1.patient can try Neurontin 300 mg twice daily as tolerated. Side effects including sedation and lightheadedness were reviewed. 2. The patient is having difficulty with insurance coverage. In the meantime, she can have a weeks'trial of Lyrica which has very similar side effect profile to Neurontin. She can try 75 mg at nightincreased to 75 mg twice daily as tolerated. 3. Followup appointment in three to four months. Signed by Yovana Callejas MD 05/20/2008 09:25 Yovana Callejas MD - Yovana Callejas MD - [facility]IC[facility] Job ID: [id number] Doc ID: [id number] cc: Remedios Strong MD documented in this encounter Plan of Treatment Not on file documented as of this encounter Visit Diagnoses Not on filedocumented in this encounter Care Teams Rental Boats Caretaker Relationship Specialty Start Date End Date Remedios Mehta MD [address] [place] [phone] PCP - General 02/19/09 01/04/15 documented as of this encounter
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
--- OUTSIDE RECORDS SUMMARY | 2024-06-24 02:27 | XMS_ITS | Encounter Summary ---
Author Organization [facility] Address [address] [place] [address] Care Team Providers Care Podiatric Medicine Professor Name Role Phone Unavailable Primary Care Provider Unavailabl e Encounter Details Date Type Department Care Team (Late st Contact Info) Description 04/04/2001 10:51 EDT Hospital Encounter [facility] - Other [address] [place] [address] Avel Mondragon MD Unknown, Provider, Social History Tobacco Use Types Packs/Day Years [...] Pressure Asthma 133/57(2020 14:39 EDT) No Emily Gibson, OPERATIONS TECH LDL < 130 Result Component Hyperlipidemia 143( 4 11:54 EDT) No Emily Gibson LPN documented as of this encounter Procedures Procedure Name Priority Date/Time Associated Diagnosis Comments COMPLETE BLOOD COUNT Routine 04/04/2001 9:30 EDT TSH Routine 04/04/2001 9:30 EDT LIPID PROFILE (INCLUDES CHOLESTEROL, TRIGLYCERIDES, HDL, LDL) Routine 04/04/2001 9:30 EDT COMPREHENSIVE METABOLIC PANEL (CMP) Routine 04/04/2001 9:30 EDT documented in this encounter Results * TSH (04/04/2001 9:30 EDT) TSH 1.31 0.35 - 5.50 uIU/ml [facility] 04/04/2001 9:30 EDT 04/04/2001 15:22 EDT Avel Mondragon MD CHEMISTRY & BLOOD GAS ORDERABLES Performing Organization Address City/State/[facility] Co de Phone Number [facility] [address] [place] [address] * LIPID PROFILE (INCLUDES CHOLESTEROL, TRIGLYCERIDES, HDL, LDL) (04/04/2001 9:30 EDT) Cholesterol 219 mg/dl [facility] Comment: Desirable:<200 Borderline:200-239 High Risk:>[id number] Fasting Triglycerides 100 35 - 160 mg/dl [facility] Comment:Fasting HDL 40 mg/dl [facility] Comment: Highly Desirable:>60 Desirable:35-60 High Risk:<35 Fasting LDL, Calculated 159 mg/dl [facility] Comment: Desirable:<130 Borderline:130-159 High Risk:>[id number] Fasting Chol/HDL Ratio 5.5 Fasting [facility] 04/04/2001 9:30 EDT 04/04/2001 15:22 EDT Avel Mondragon MD CHEMISTRY & BLOOD GAS ORDERABLES [facility] [address] [place] [address] * COMPREHENSIVE METABOLIC PANEL (04/04/2001 9:30 EDT) Potassium 4.2 3.5 - 5.0 mEq/L [facility] Comment:Fasting Sodium 140 136 - 145 mEq/L [facility] Comment:Fasting Chloride 105 96 - 110 mEq/L [facility] Comment:Fasting CO2 24 24 - 30 mEq/L [facility] Comment:Fasting Total Alkaline Phosphatase 69 38 - 126 U/L [facility] Comment:Fasting Bilirubin, Total 0.7 0.2 - 1.3 mg/dl [facility] Comment:Fasting AST 13 8 - 50 U/L [facility] Comment:Fasting ALT 25 15 - 75 U/L [facility] Comment:Fasting Albumin 4.2 3.0 - 5.5 g/dl [facility] Comment:Fasting Total Protein 7.2 6.0 - 8.5 g/dl [facility] Comment:Fasting Creatinine 0.8 0.7 - 1.5 mg/dl [facility] Comment:Fasting BUN 15 10 - 26 mg/dl [facility] Comment:Fasting Calcium 8.8 8.5 - 10.5 mg/dl [facility] Comment:Fasting Calculated Calcium 9.0 8.5 - 10.5 mg/dl [facility] Comment:Fasting Glucose, Serum 91 70 - 110 mg/dl [facility] Comment:Fasting Albumin/Globulin Ratio 1.4 Fasting [facility] 04/04/2001 9:30 EDT 04/04/2001 15:22 EDT Avel Mondragon MD CHEMISTRY & BLOOD GAS ORDERABLES [facility] [address] [place] [address] * (ABNORMAL) HEMAGRAM (04/04/2001 9:30 EDT) WBC 7.05 4.0 - 12.4 K/cmm [facility] RBC 4.58 3.86 - 5.04 M/cmm [facility] Hemoglobin 13.9 11.6 - 15.2 gm/dl [facility] HCT 41.5 34.9 - 44.4 % [facility] MCV 91 81 - 98 fl [facility] MCH 30.4 26.7 - 33.3 pg [facility] MCHC 33.5 32.1 - 35.9 gm/dl [facility] PLT 327(H) 141 - 320 K/cmm [facility] RDW-CV 12.3 11.7 - 14.6 % [facility] 04/04/2001 9:30 EDT 04/04/2001 15:22 EDT Avel Mondragon MD HEMATOLOGY & PF4 ORDERABLES Performing Organization Address City/State/[facility] Co de Phone Number [facility] [address] [place] [address] documented in this encounter Visit Diagnoses Not on filedocumented in this encounter Additional Health Concerns Infection Onset Date Last Indicated Resolved Time Rule-Out C. difficile 2021 04/16/20212020 13:40 EDT C. difficile 04/16/2021 04/16/2021 06/15/2021 22:1 5 EDT documented as of this encounter
--- OUTSIDE RECORDS SUMMARY | 2024-06-24 02:27 | XMS_ITS | Encounter Summary ---
Author Organization [facility] Address [address] [place] [address] Care Team Providers Care Maintenance Technician 2Nd Shift Name Role Phone Unavailable Primary Care Provider Unavailabl e Encounter Details Date Type Department Care Team (Latest Contact Info) Description 12/26/2003 9:40 EST - 12/26/2003 11:59 EST Hospital Encounter [facility] [address] [place] [address] Tahir Suarez MD [address] [place] [phone] Discharge Disposition: Auto Discharge Social History Tobacco [...] Priority Date/Time Associated Diagnosis Comments NM BONE SCAN WHOLE BODY Routine 12/26/2003 13:13 EST documented in this encounter Results * NM BONE SCAN WHOLE BODY (12/26/2003 13:13 EST) Anatomical Region Laterality Modality Other 12/26/2003 13:1 3 EST Impressions 07/09/2009 13:28 EDT IMPRESSION: 1. No evidence of stress fracture. 2. Periarticular uptake consitant with arthritis, as described above. 3. Correlate for anemia or hypertrophic osteoarthropathy. 4. Subtle pulmonary uptake. Correlate with CXR. Causes include; hyperparthyroidism, interstial lung disease, pleural effussions, etc. /[facility] Narrative 07/09/2009 13:28 EDT T BONE SCAN, BILATERAL LOWER EXT PAIN IN KNEES, LEGS AND ANKLES R/O ST RESS FX, ARTHRITIS WHOLE BODY BONE SCAN: 12/26/03, 1300 TECHNIQUE: Vfe-hop-qbh-half hours after the IV injection of 22.6 mCi Tc-99m MDP, standard whole body bone images were obtained. FINDINGS: No abnormal uptake is present to suggest a stress fracture. There is diffuse periarticular increased uptake in the knees, hips, ankles, shoulders, wrists, and elbows, likely related to arthritis. There is also subtle increased activity in the posterior images over the thorax. This is most likely related to differential attenuation; however, the differential diagnosis includes nonspecific interstitial disease. There is diaphyseal uptake in both tibia, compatible with bone marrow reconversion or hypertrophic osteoarthropathy. Procedure Note Aron Boyer MD / Rudy Tucker MD - 07/09/2009 T BONE SCAN, BILATERAL LOWER EXT PAIN IN KNEES, LEGS AND ANKLES R/O ST RESS FX, ARTHRITIS WHOLE BODY BONE SCAN: 12/26/03, 1300 TECHNIQUE: Xgq-ucr-kar-half hours after the IV injection of 22.6 mCi Tc-99m MDP, standard whole body bone images were obtained. FINDINGS: No abnormal uptake is present to suggest a stress fracture. There is diffuse periarticular increased uptake in the knees, hips, ankles, shoulders, wrists, and elbows, likely related to arthritis. There is also subtle increased activity in the posterior images over the thorax. This is most likely related to differential attenuation; however, the differential diagnosis includes nonspecific interstitial disease. There is diaphyseal uptake in both tibia, compatible with bone marrow reconversion or hypertrophic osteoarthropathy. IMPRESSION IMPRESSION: 1. No evidence of stress fracture. 2. Periarticular uptake consitant with arthritis, as described above. 3. Correlate for anemia or hypertrophic osteoarthropathy. 4. Subtle pulmonary uptake. Correlate with CXR. Causes include; hyperparthyroidism, interstial lung disease, pleural effussions, etc. /ishmael Tahir Suarez MD IMG NM ORDERA BLES documented in this encounter Visit Diagnoses Not on filedocumented in this encounter
--- OUTSIDE RECORDS SUMMARY | 2024-06-24 02:27 | XMS_ITS | Encounter Summary ---
Author Organization [facility] Address [address] [place] [address] Care Team Providers Care Nurse Assessor Name Role Phone Unavailable Primary Care Provider Unavailabl e Encounter Details Date Type Department Care Team (Latest Contact Info) Description 10/14/2002 19:42 EST Hospital Encounter [facility] - Other [address] [place] [address] Avel Mondragon MD Unknown, Provider, Discharge Disposition: Auto Discharge Social History Tobacco [...]
--- OUTSIDE RECORDS SUMMARY | 2024-06-24 02:27 | XMS_ITS | Encounter Summary ---
Author Organization [facility] Address [address] [place] [address] Care Team Providers Care [employer] Officer Name Role Phone Unavailable Primary Care Provider Unavailabl e Encounter Details Date Type Department Care Team (Late st Contact Info) Description 06/10/2005 13:02 EDT Hospital Encounter [facility] [place] conversion [address] [place] [address] MD [address] [place] [address] Social History Tobacco Use Types Packs/Day [...]
--- OUTSIDE RECORDS SUMMARY | 2024-06-24 02:27 | XMS_ITS | Encounter Summary ---
Author Organization [facility] Address [address] [place] [address] Care Team Providers Care Special Needs Child Caregiver Name Role Phone Unavailable Primary Care Provider Unavailabl e Encounter Details Date Type Department Care Team (Late st Contact Info) Description 12/24/2004 12:54 EST Hospital Encounter [facility] [place] conversion [address] [place] [address] MD [address] [place] [address] Social History Tobacco Use Types Packs/Day [...]
--- OUTSIDE RECORDS SUMMARY | 2024-06-24 02:27 | XMS_ITS | Encounter Summary ---
Author Organization [facility] Address [address] [place] [address] Care Team Providers Care Filler Picker Name Role Phone Remedios Mehta MD Primary Care Provider [phone] Encounter Details Date Type Department Care Team (Late st Contact Info) Description 07/11/2005 Before PRISM Converted Visit ([place]) [facility] [place] conversion [address] [place] [address] Yovana Callejas MD [address] [place] [address] [address] [place] [phone] Social History Tobacco Use Types Packs/Day Years Used Date Smoking Tobacco: Never Assessed Sex and Gender Information Value Date Recorded Sex Assigned at Not on file Gender Identity Female 2021 11:19 EDT Sexual Orientation Not on file documented as of this encounter Progress Notes * Yovana Callejas MD - 12/30/2009 1120 EST DIVISION OF RHEUMATOLOGY PROGRESS/FOLLOWUP NOTE - 07/11/2005 CHIEF COMPLAINT ID: Cherelle is here in follow-up of fibromyalgia. SUBJECTIVE: She is under a significant amount of stress since her divorce is pending and is experiencing increased insomnia and achiness. She also tore a muscle in her left calf and is in a walking boot, has had to discontinue aquatherapy and feels achy. She takes trazodone 25-50 mg a night and sleeps a bit better, does not like to take 50 mg on a regular basis because it makes her very sedated. She was offered Flexeril for her torncalf muscle but declined the medication because of concerns about interactions with her other medications. Medication list is extensive, was reviewed by me personally, and updated in chart. Past medical history includes asthma and anxiety. Review of systems has a history of proteinuria which resolved and was likely related to infection. Skin: No recent episodes of rash, has not been seen by dermatology. GI: No recent difficulty with reflux symptoms. They appear to be well controlled. OBJECTIVE: On examination, she is a pleasant woman. Height is 5 feet. She declined to be weighed. Blood pressure 106/64, pulse 64, respiratory rate is 12. She has 6/10 pain in her hips, hands, and back. Skin: No pathologic lesions. HEENT: No ocular inflammation or oral ulcers. Chest is clear. Cardiac exam is regular rate and rhythm, symmetric radial pulses. Abdomen is soft and nontender. Gait: Antalgic due to walking boot on the left. Neurologic: 5/5 hand treasury representative, shoulder abduction, negative Tinel, joint tenderness over the MCPs but no synovitis, wrist range of motion is preserved, elbows unremarkable, hips unremarkable, although there is greater trochanteric bursitis tenderness. Time spent 20 minutes over half counseling IMPRESSION: 1. Myofascial pain flare. 2. Inflammatory arthritis, not active. PLAN: 1. Talked about alternatives to trazodone. Suggested a trial of Neurontin 100 mg 3 times a day. If ineffective, would increase dose of trazodone. 2. Arthritis is stable. Pain is most consistent with myofascial plain flare. Suggested continuing ause of Tylenol and use of hot and cold. 3. Followup in 3-4 months. Signed by Yovana Callejas MD 07/20/2005 12:10 Myron Callejas, Jens Callejas MD Yovana Callejas MD - Yovana Callejas MD A - BB Job ID: [id number] Document ID: [id number] cc: MD Remedios Garcia MD documented in this encounter Plan of Treatment Not on file documented as of this encounter Visit Diagnoses Not on filedocumented in this encounter Care Teams Filler Picker Relationship Specialty Start Date End Date Remedios Mehta MD [address] [place] [phone] PCP - General 02/19/09 01/04/15 documented as of this encounter
--- OUTSIDE RECORDS SUMMARY | 2024-06-24 02:27 | XMS_ITS | Encounter Summary ---
Author Organization [facility] Address [address] [place] [address] Care Team Providers Care Coding Compliance Auditor Name Role Phone Remedios Mehta MD Primary Care Provider [phone] Encounter Details Date Type Department Care Team (Late st Contact Info) Description 06/10/2005 Results Only [facility] Oncology - [facility] [address] [place], [place] [id number] Julian Garza MD [address] [facility] [address] [place] [address] Social History Tobacco Use Types Packs/Day Years Used Date Smoking Tobacco: Never Assessed Sex and Gender Information Value Date Recorded Sex Assigned at Not on file Gender Identity Female 2021 11:19 EDT Sexual Orientation Not on file documented as of this encounter Plan of Treatment Not on file documented as of this encounter Procedures Procedure Name Priority Date/Time Associated Diagnosis Comments [facility] ANTIGEN Routine 06/10/2005 10:14 EDT ZZRISTOCETIN COFACTOR Routine 06/10/2005 10:14 EDT PTT Routine 06/10/2005 10:14 EDT SED RATE Routine 06/10/2005 10:14 EDT PROTIME Routine 06/10/2005 10:14 EDT PLATELET FUNCTION ASSAY/ANALYSIS Routine 06/10/2005 10:14 EDT FIBRINOGEN Routine 06/10/2005 10:14 EDT D-DIMER Routine 06/10/2005 10:14 EDT COMPLETE BLOOD COUNT AND DIFFERENTIAL Routine 06/10/2005 10:14 EDT C REACTIVE PROTEIN Routine 06/10/2005 10 :14 EDT COMPREHENSIVE METABOLIC PANEL (CMP) Routine 06/10/2005 10:14 EDT documented in this encounter Results * VWF ANTIGEN (06/10/2005 10:14 EDT) VWF Antigen 164Unit: %(Note) -- EXPECTED VALUES -- ? (Ref Range) 55 to 200 ? TEST PERFORMED OR REFERRED BY [facility] ? [address] ? [place] [address] ? Security Assurance Specialist: ? Curtis Blake M.D. ? [facility] 06/10/2005 10:1 4 EDT 06/10/2005 10:44 EDT Julian Garza MD HEMATOLOGY & PF4 ORDERABLES [facility] [address] [place] [address] * SED. RATE:MISA (06/10/2005 10:14 EDT) Sed. Rate Misa 10 0 - 20 mm/hr [facility] 06/10/2005 10:1 4 EDT 06/10/2005 10:44 EDT Julian Garza MD HEMATOLOGY & PF4 ORDERABLES [facility] [address] [place] [address] * RISTOCETIN COFACTOR (06/10/2005 10:14 EDT) Ristocetin Cofac 180Unit: %(Note) -- EXPECTED VALUES -- ? (Ref Range) 55 to 200 ? TEST PERFORMED OR REFERRED BY [facility] ? [address] ? [place] [address] ? Security Assurance Specialist: ? Curtis Blake M.D. ? [facility] 06/10/2005 10:1 4 EDT 06/10/2005 10:44 EDT Julian Garza MD HEMATOLOGY & PF4 ORDERABLES Performing Organization Address [facility] de Phone Number [facility] [address] [place] [address] * PTT (06/10/2005 10:14 EDT) PTT 25 23 - 34 secs [facility] Comment:Therapeutic Heparin range: 70-105 seconds 06/10/2005 10:1 4 EDT 06/10/2005 10:44 EDT Julian Garza MD HEMATOLOGY & PF4 ORDERABLES Performing Organization Address [facility] de Phone Number [facility] [address] [place] [address] * PROTIME (06/10/2005 10:14 EDT) Pro Time 14.0 12.3 - 14.3 secs [facility] I.N.R. 1.1 0.9 - 1.1 Ratio [facility] Comment: Moderate Intensity Coumadin INR = 2.0-3.0 Adjustments in anticoagulant therapy dose should be based upon the INR and NOT the Pro Time. 06/10/2005 10:1 4 EDT 06/10/2005 10:44 EDT Julian Garza MD HEMATOLOGY & PF4 ORDERABLES Performing Organization Address [facility] de Phone Number [facility] [address] [place] [address] * PLATELET FUNCTION ASSAY/ANALYSIS (06/10/2005 10:14 EDT) COL/EPI Cartridge 118 94 - 193 secs [facility] Comment: Platelet function results with closure times within or below the reference range are consistent with normal platelet function. Platelet function may be affected by a hematocrit less than 35% Platelet function may be affected by platelet counts less than 150,000/cumm Platelet function is affected by the presence of platelet clumps. Hemolysis: Free hemoglobin from lysis of red cells may affect platelet function due to reduction of hematocrit and release of ADP. NOTE: ??PLT Funct Analysis replaces the Bleeding Time 06/10/2005 10:1 4 EDT 06/10/2005 10:44 EDT Julian Garza MD HEMATOLOGY & PF4 ORDERABLES Performing Organization Address [facility] de Phone Number [facility] [address] [place] [address] * FIBRINOGEN (06/10/2005 10:14 EDT) Pathologist [facility] Fibrinogen 296 220 - 410 mg/dl [facility] 06/10/2005 10:1 4 EDT 06/10/2005 10:44 EDT Julian Garza MD HEMATOLOGY & PF4 ORDERABLES Performing Organization Address [facility] de Phone Number [facility] [address] [place] [address] * D-DIMER (06/10/2005 10:14 EDT) Pathologist [facility] D-Dimer 0.31 <0.50 ug FEU/ml [facility] 06/10/2005 10:1 4 EDT 06/10/2005 10:44 EDT Julian Garza MD HEMATOLOGY & PF4 ORDERABLES Performing Organization Address [facility] Co de Phone Number [facility] [address] [place] [address] * (ABNORMAL) C-REACTIVE PROTEIN (06/10/2005 10:14 EDT) Pathologist [facility] C-Reactive Protein 1.2(H) <1.0 mg/dl [facility] 06/10/2005 10:1 4 EDT 06/10/2005 10:44 EDT Julian Garza MD CHEMISTRY & BLOOD GAS ORDERABLES Performing Organization Address [facility] de Phone Number [facility] [address] [place] [address] * (ABNORMAL) COMPREHENSIVE METABOLIC PANEL (06/10/2005 10:14 EDT) Pathologist [facility] Potassium 4.3 3.5 - 5.0 mEq/L [facility] Sodium 140 136 - 145 mEq/L [facility] Chloride 103 96 - 110 mEq/L [facility] CO2 28 24 - 32 mEq/L [facility] Total Alkaline Phosphatase 62 38 - 126 U/L [facility] Bilirubin, Total 0.5 0.2 - 1.3 mg/dl [facility] AST 14(L) 15 - 46 U/L [facility] ALT 18 9 - 52 U/L [facility] Albumin 3.8 3.4 - 4.9 g/dl [facility] Total Protein 6.6 6.5 - 8.3 g/dl [facility] Creatinine 0.8 0.7 - 1.5 mg/dl [facility] BUN 15 10 - 26 mg/dl [facility] Calcium 8.7 8.5 - 10.5 mg/dl [facility] Calculated Calcium 9.3 8.5 - 10.5 mg/dl [facility] Glucose, Serum 82 70 - 110 mg/dl [facility] Fasting? No [facility] Albumin/Globulin Ratio 1.4 [facility] 06/10/2005 10:1 4 EDT 06/10/2005 10:44 EDT Julian Garza MD CHEMISTRY & BLOOD GAS ORDERABLES [facility] [address] [place] [address] * (ABNORMAL) HEMAGRAM AND DIFFERENTIAL (06/10/2005 10:14 EDT) WBC 8.17 4.0 - 12.4 K/cmm [facility] RBC 4.13 3.86 - 5.04 M/cmm [facility] Hemoglobin 12.7 11.6 - 15.2 gm/dl [facility] HCT 36.1 34.9 - 44.4 % [facility] MCV 88 81 - 98 fl [facility] MCH 30.8 26.7 - 33.3 pg [facility] MCHC 35.2 32.1 - 35.9 gm/dl [facility] PLT 346(H) 141 - 320 K/cmm [facility] RDW-CV 10.4(L) 11.7 - 14.6 % [facility] % Neutrophils 66.0 45.5 - 79.7 % [facility] % Lymphocytes 23.5 15.0 - 46.8 % [facility] % Monocytes 7.7 1.8 - 12.0 % [facility] % Eosinophils 2.0 0.6 - 6.9 % [facility] % Basophils 0.8 0.2 - 1.4 % [facility] ABS Neutrophils 5.39 2.20 - 8.85 K/cmm [facility] ABS Lymphs 1.92 1.09 - 3.30 K/cmm [facility] ABS Monocytes 0.63 0.1 - 0.8 K/cmm [facility] ABS Eosinophils 0.17 0.03 - 0.61 K/cmm [facility] ABS Basophils 0.07 0.01 - 0.11 K/cmm [facility] Type of Diff: Automated [facility] 06/10/2005 10:1 4 EDT 06/10/2005 10:44 EDT Julian Garza MD PACKAGES & DNA NH OBE ORDERABLES [facility] [address] [place] [address] documented in this encounter Visit Diagnoses Not on filedocumented in this encounter Care Teams Coding Compliance Auditor Relationship Specialty Start Date End Date Remedios Mehta MD [address] [place] [phone] PCP - General 02/19/09 01/04/15 documented as of this encounter
--- OUTSIDE RECORDS SUMMARY | 2024-06-24 02:27 | XMS_ITS | Encounter Summary ---
Author Organization [facility] Address [address] [place] [address] Care Team Providers Care Corporate Events Director Name Role Phone Unavailable Primary Care Provider Unavailabl e Encounter Details Date Type Department Care Team (Late st Contact Info) Description 08/23/2005 10:23 EDT Hospital Encounter [facility] - [facility] [address] [place] [address] Brook Cifuentes MD [address] [phone] Social History Tobacco Use Types Packs/Day Years [...] Asthma 133/57(2020 14:39 EDT) No Emily Gibson, SPECIAL SERVICES AGENT LDL < 130 Result Component Hyperlipidemia 143( 4 11:54 EDT) No Ledy Gibsonyl SPECIAL SERVICES AGENT documented as of this encounter Procedures Procedure Name Priority Date/Time Associated Diagnosis Comments BACTERIAL CULTURE/SMEAR Routine 08/23/2005 14:54 EDT THYROID CASCADE Routine 08/23/2005 14:54 EDT COMPLETE BLOOD COUNT Routine 08/23/2005 14:54 EDT ZZCHLAMYDIA TRACHOMATIS AMPLIFIED PROBE Routine 08/23/2005 14:54 EDT documented in this encounter Results * THYROID CASCADE (08/23/2005 14:54 EDT) TSH 1.85 0.35 - 5.50 uIU/ml [facility] Comment: TSH cascade is not recommended for patients in which pituitary or hypothalamic disorders are suspected. 08/23/2005 14:5 4 EDT 08/23/2005 19:28 EDT Brook iCfuentes MD CHEMISTRY & BLOOD GA S ORDERABLES Performing Organization Address City/State/[facility] Co de Phone Number [facility] [address] [place] [address] * (ABNORMAL) HEMAGRAM (08/23/2005 14:54 EDT) WBC 9.42 4.0 - 12.4 K/cmm [facility] RBC 3.97 3.86 - 5.04 M/cmm [facility] Hemoglobin 12.7 11.6 - 15.2 gm/dl [facility] HCT 36.4 34.9 - 44.4 % [facility] MCV 92 81 - 98 fl [facility] MCH 32.0 26.7 - 33.3 pg [facility] MCHC 35.0 32.1 - 35.9 gm/dl [facility] PLT 392(H) 141 - 320 K/cmm [facility] RDW-CV 12.0 11.7 - 14.6 % [facility] 08/23/2005 14:5 4 EDT 08/23/2005 19:28 EDT Brook Cifuentes MD HEMATOLOGY & PF4 ORD ERABLES Performing Organization Address [facility] de Phone Number [facility] [address] [place] [address] * CHLAMYDIA TRACHOMATIS AMPLIFIED PROBE (08/23/2005 14:54 EDT) Specimen Description Endocervix [facility] Result Unable to test specimen: Incorrect swab submitted in transport tube (please use blue swab ONLY). Credit Issued [facility] Report Status Final [id number] [facility] 08/23/2005 14:5 4 EDT 08/24/2005 7:23 EDT Brook Cifuentes MD MICROBIOLOGY - GENER AL ORDERABLES Performing Organization Address [facility] de Phone Number [facility] [address] [place] [address] * BACTERIAL CULTURE/SMEAR, OTHER (08/23/2005 14:54 EDT) Specimen Description Vagina Specimen submitted on a swab [facility] Gram Smear Result No clue cells present No yeast seen [facility] Result Rare Yeast forms Consult Pathologist for further testing within 7 days Mod Usual vaginal iona [facility] Report Status Final [id number] [facility] 08/23/2005 14:5 4 EDT 08/23/2005 19:16 EDT Brook Cifuentes MD MICROBIOLOGY - GENER AL ORDERABLES Performing Organization Address [facility] de Phone Number [facility] [address] [place] [address] documented in this encounter Visit Diagnoses Not on filedocumented in this encounter Additional Health Concerns Infection Onset Date Last Indicated Resolved Time Rule-Out C. difficile 2021 04/16/20212020 13:40 EDT C. difficile 04/16/2021 04/16/2021 06/15/2021 22:1 5 EDT documented as of this encounter
--- OUTSIDE RECORDS SUMMARY | 2024-06-24 02:27 | XMS_ITS | Encounter Summary ---
Author Organization [facility] Address [address] [place] [address] Care Team Providers Care Parliamentary Librarian Name Role Phone Remedios Mehta MD Primary Care Provider [phone] Encounter Details Date Type Department Care Team (Late st Contact Info) Description 06/10/2005 Before PRISM Converted Visit (Maple) [facility] - Maple conversion [address] [place] [address] Julian Garza MD [address] [facility], [facility] [address] [place] [address] Social History Tobacco Use Types Packs/Day Years Used Date Smoking Tobacco: Never Assessed Sex and Gender Information Value Date Recorded Sex Assigned at Not on file Gender Identity Female 2021 11:19 EDT Sexual Orientation Not on file documented as of this encounter Progress Notes * Julian Garza MD - 12/30/2009 1141 EST DIVISION OF HEMATOLOGY / ONCOLOGY PROGRESS/FOLLOWUP NOTE - 06/24/2005 PROBLEM LIST: 1. Easy bruising. 2. Carpal tunnel syndrome. 3. Asthma. 4. Myofascial pain syndrome. 5. Irritable bowel syndrome. 6. History of proteinuria. SUBJECTIVE: Mrs. Husain returns to the clinic today for followup visit for easy bruising. In the interim since her last visit, she has unfortunately ruptured her Achilles tendon on a loading dock. She feels her bruising is at baseline and has not increased appreciably since our last visit. One bruise is healed on her arm today and another less than 1-cm bruise is noted on her right forearm. She h as had no excess bleeding in terms of nosebleeds, hemoptysis or hematuria. She has noticed no new bright red blood per rectum. She does note that with the Achilles tendon rupture, she did not have anextensive amount of bruising. REVIEW OF SYSTEMS: As dictated in HPI and reviewed with the patient on the flow sheet in the chart. MEDICATIONS: Reviewed. PHYSICAL EXAM: Please see flow sheet for vital signs. Alert and oriented times three. No acute distress. Lungs: No audible wheezing. Extremities: The left lower extremity is bandaged to the knee today. The right lower extremity is without swelling. Skin: A resolving bruise on her left forearm from previous. There is a less than 1-cm bruise on her right forearm, which is very mild in nature. Thereis no other significant bruising noted. There are no petechiae. LABORATORY DATA FROM JUNE 10, 2005: WBC 8.1, hemoglobin 12.7, platelet count 346,000. LFTs normal, creatinine 0.8, calculated calcium 9.3, C-reactive protein slightly elevated at 1.2, D-Dimer 0.31,fibrinogen normal at 296, PSA-100 in the EPI cartridge at 118, PT 14, PTT 25, ristocetin cofactor 180, sedimentation rate 10, von Willebrand factor antigen 164. ASSESSMENT: A 45-year-old woman with a clinical history of slightly increased bruising. The screening evaluation for a significant bleeding abnormality has returned negative at this time. The exact etiology of her slight increased bruising that she has noted is not entirely clear. I do question whether or not she is in early menopause, with her abnormal uterine bleeding of recent. As it turns out, she has a family history of early menopause. A decline in estrogen levels could unmask a slight increased tendency for bruising. I cannot be absolutely sure of this at this time. Alternatively, one of her medications may be contributing slightly. The level of bruising and the laboratory evaluations, however, do not suggest a significant ongoing bleed risk or need for further evaluation. PLAN: 1. MISCELLANEOUS MACHINE OPERATOR evaluation for her abnormal menstrual periods that have developed. Possibility of early menopause entertained given her family history. 2. No further workup at this time. 3. I do not believe she is at a substantially increased risk of bleeding with surgeries or minor procedures. This would be particularly pertinent with regards to her possible need for Achilles tendonrepair. I do not recommend any specific interventions in that regard. 4. Have noted the slight increased CRP and platelet count. Suggest an ongoing level of inflammation. Would not workup at this time but could check a CBC in a year to recheck the platelet count. 5. No followup visit planned at this time. Signed by Julian Garza MD 07/23/2005 11:30 Ted Garza MDHematology / Oncology AttendingJulian Garza MD Julian Garza MD Hematology / Oncology Attending - Julian Garza MD A - LM Job ID: [id number] Document ID: [id number] cc: Yovana Callejas MD * Julian Garza MD - 12/30/2009 1141 EST DIVISION OF HEMATOLOGY / ONCOLOGY June 24, 2005 [place] [address] Callejas, Thank you for referring your patient, Ms. Cherelle Husain, to my clinic for further evaluation of bruising. As you know, she is a 45-year-old woman with a history of asthma and irritable bowel syndrome who has, over the last year, noted a slight increase inher bruising. She has not had a significant bleeding history in the past. She had also had some concurrent irregular menstrual periods. A screening evaluation (the results of which are contained in my note) has essentially all returned negative.It may bethat Mrs. Husain is entering a phase of early menopause with an associated drop in her estrogen levels. In some women, this can be associated with a slight increase in their bruising. Altern atively, one of her medications maybe the culprit. Her bruising,however, from a clinical standpointis very mild, and I would not recommend any further intervention at this time. I would not recommend further work-up. I do not believe she is at a substantially increased risk of bleeding should surgery be required in the future. have educated the patient regarding signs and symptoms for which further evaluation would be warranted. I have not scheduled a follow-up visit at this time but would be happy to see the patient back,if needed, in the future. Again, thank youfor your referral. Regards, Signed by Julian Garza MD 07/23/2005 11:30 Ted Garza MDHematology / Oncology AttendingJulian Garza MD Julian Garza MD Hematology / Oncology Attending - Julian Garza MD A - RF Job ID: [id number] Document ID: [id number] cc: Yovana Callejas MD documented in this encounter Plan of Treatment Not on file documented as of this encounter Visit Diagnoses * Evaluation - Julian Garza MD - 12/30/2009 1141 EST DIVISION OF HEMATOLOGY / ONCOLOGY NEW PATIENT EVALUATION - 06/10/2005 REFERRING PHYSICIAN: Yovana Callejas MD. REASON FOR VISIT: Bruising. HPI: Cherelle is a 45-year-old woman referred to my clinic today for increased bruising. She has not had a significant history of bruising but has noticed more bruises on her arms, legsand abdomen over the last year. She also feels her bruises take longer to resolve and are not associated with trauma. Prior to last year, she had had no difficulty with any of the surgeries that she had performed, although she did have wisdom teeth out when she was 25 years old and thought that there was a bit of excess bleeding with that. Reportedly, she had a bleeding time done at that time which was borderline . Over the last year, she has noted two nosebleeds that have been very short in duration and have not required trips to the emergency room. She has occasional gum bleeding which is not excessive with toothbrushing. She has no hematuria or melena. She has occasional bright red blood per rectum related to hemorrhoidal bleeding per her report. Shehas irregular menstrual periods. She some months hasvery light periods, other months are heavier, lasting seven days and using approximately four tampons or pads per day. REVIEW OF SYSTEMS: As dictated in HPI and reviewed with the patient on the flow sheet in the chart.Notably, she has had several terminal worker issues with her abdomen and fatigue. These have not appreciably changed. She has had no significant fevers, chills,night sweats or weight loss. She has had no evidence of new additional systemic disease beyond her baseline. PAST MEDICAL HISTORY: 1. [place] teeth extraction with some excess bleeding per the patient. No blood transfusions required. 2. Status post appy as a child without excess bleeding. 3. Status post carpal tunnel syndrome in her 30s without excess bleeding. 4. Status post exploratory lap without excess bleeding. 5. Asthma. 6. Myofascial pain syndrome. 7. Inflammatory arthritis. 8. Irritable bowel syndrome. 9. History of proteinuria of unclear etiology. 10. She has had two children without excess bleeding. There was a query of a DVT in 1982 with her second child which cannot be confirmed after greater than 30 minutes of chart review. CURRENT MEDICATIONS: Plaquenil begun approximately two years ago, trazodone also begun approximately two years ago, Advair, Accolate, Protonix, Zelnorm for approximately one year, calcium with vitamin D, albuterol p.r.n. She takes no herbal medications. ALLERGIES: PENICILLIN, CODEINE, SULFA, ASPIRIN (THE LATTER OF WHICH CAUSES AN ASTHMA FLARE). 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 She is . She has two children. Former smoker. No alcohol use. FAMILY HISTORY: No significant history of a bleeding disorder in the family, although she does not know her family well by her report. Her children have had no significant bruising, although she doesfeel her daughter Gifty may bruise more than usual. PHYSICAL EXAM: Temp 36.6, pulse 72, BP 102/64, weight 88.8 kg. HEENT: Oropharynx is clear. There are no oral lesions or petechiae. No active bleeding on today's exam. Neck is supple. Thyroid not palpable. Cardiovascular exam: Regular rate and rhythm without murmurs, rubs or gallops. Lungs are clearto auscultation bilaterally. Abdomen: Mild diffuse tenderness to palpation, nonfocal normal bowel sounds. Difficult exam so could not assess hepatosplenomegaly directly. Tiffany exam reveals no enlarged lymph nodes. She does have what may be a lymph node in the right axilla, but it is so tender to palpation that I cannot get an adequate exam in this area. Extremities: No edema. Skin: No significantbruising on today's exam with the exception of a 1-cm bruise on her leg. DATA/LABORATORY REVIEW: Her chart was reviewed for greater than 30 minutes today in the office. Most recent laboratories from May 23, 2005 reveal a WBC of 6.6, hemoglobin 13.1, platelet count 331,000 which is slightly elevated. She has had a persistent mild thrombocytosis noted in data review since 1998. Most recent TSH was 1.64 from May 13, 2004. She has had extensive rheumatologic workup in the past which appears to have returned negative. ASSESSMENT: A 45-year-old woman with a history of increased bruising. The etiology of her bruising is not clear to me at this time. Her history is certainly not suggestive of a care home congenital diagnosis to explain this. Occasionally, patients may have subclinical disease which can be exacerbated by medications whichare not typically reported to cause platelet dysfunction. I do note that Mairaas a persistent mild thrombocytosis. I do not believe she has an essential thrombocythemia/myeloproliferative condition. I do note, however, that these conditions are associatedwith increased bleeding and bruising in a limited number of patients. I think it is worth a preliminary investigation of her coagulation system, including her platelet function. Should this return negative, we will likelynot need to pursue additional testing, but I will discuss this further with Cherelle following the results. PLAN: 1. Check PFA-100. 2. Check sed rate and CRP along with a repeat platelet count today. 3. Check PT and PTT. 4. Ristocetin cofactor and von Willebrand factor antigen as well as D-Dimer and fibrinogen for basic screening laboratories. 5. I will see the patient back in one to two weeks in followup to discuss the results. Signed by Julian Garza MD 07/23/2005 11:30 Ted Garza MDHematology / Oncology AttendingJulian Garza MD Julian Garza MD Hematology / Oncology Attending - Julian Garza MD P - LM Job ID: [id number] Document ID: [id number] cc: Yovana Callejas MD documented in this encounter Care Teams Parliamentary Librarian Relationship Specialty Start Date End Date Remedios Mehta MD [address] [place] [address] [phone] PCP - General 02/19/09 01/04/15 documented as of this encounter
--- OUTSIDE RECORDS SUMMARY | 2024-06-24 02:27 | XMS_ITS | Encounter Summary ---
Author Organization [facility] Address [address] [place] [address] Care Team Providers Care Navy Airspace Officer Name Role Phone Unavailable Primary Care Provider Unavailabl e Encounter Details Date Type Department Care Team (Latest Contact Info) Description 06/23/2005 8:43 EDT - 06/23/2005 11:59 EDT Hospital Encounter [facility] - [facility] [address] [place] [address] Emergency, Default, MD Discharge Disposition: Home or [...] Procedure Name Priority Date/Time Associated Diagnosis Comments ANKLE 3 OR MORE VIEWS 06/23/2005 9:53 EDT documented in this encounter Results * ANKLE 3 OR MORE VIEWS (06/23/2005 9:53 EDT) Anatomical Region Laterality Modality Other 06/23/2005 9:53 EDT Narrative 06/04/2009 5:10 EDT LOUD POP, ANKLE AND POSTERIOR CALF PAIN R/O FX VS TORN ACHILLES LEFT ANKLE 06/23/05 Three views of the left ankle show no evidence of recent fracture or dislocation. ??There is no evidence of Achilles tendon rupture, although plain films are relatively insensitive to partial tears. D: ??06/23/05 T: ??06/24/05 /anuj Procedure Note Rafael Pritchett MD - 06/04/2009 LOUD POP, ANKLE AND POSTERIOR CALF PAIN R/O FX VS TORN ACHILLES LEFT ANKLE 06/23/05 Three views of the left ankle show no evidence of recent fracture or dislocation. There is no evidence of Achilles tendon rupture, although plain films are relatively insensitive to partial tears. /anuj Panda [place] MD IMG DIAGNOSTIC IMAGI NG ORDERABLES documented in this encounter Visit Diagnoses Not on filedocumented in this encounter
--- OUTSIDE RECORDS SUMMARY | 2024-06-24 02:27 | XMS_ITS | Encounter Summary ---
Author Organization [facility] Address [address] [place] [address] Care Team Providers Care Coal Sample Tester Name Role Phone Remedios Mehta MD Primary Care Provider [phone] Encounter Details Date Type Department Care Team (Late st Contact Info) Description 01/30/2004 Results Only [facility] [address] [place], [place] [id number] Yovana Callejas MD [address] [place], [place] [address]B [address] [place] [phone] Social History Tobacco Use Types Packs/Day Years Used Date Smoking Tobacco: Never Assessed Sex and Gender Information Value Date Recorded Sex Assigned at Not on file Gender Identity Female 2021 11:19 EDT Sexual Orientation Not on file documented as of this encounter Plan of Treatment Not on file documented as of this encounter Procedures Procedure Name Priority Date/Time Associated Diagnosis Comments SS-B (LA) ANTIBODY, IGG Routine 01/30/2004 14:56 EST ZZHN SSA ANTIBODIES BY JESS Routine 01/30/2004 14:56 EST URINALYSIS WITH MICROSCOPIC IF POSITIVE Routine 01/30/2004 14:56 EST UA REFLEX Routine 01/30/2004 14:56 EST DOUBLE STRANDED DNA ANTIBODY, IGG Routine 01/30/2004 14:56 EST IGA Routine 01/30/2004 14:56 EST SED RATE Routine 01/30/2004 14:56 EST C3 COMPLEMENT Routine 01/30/2004 14:56 EST C4 COMPLEMENT Routine 01/30/2004 14:56 EST documented in this encounter Results * SED. RATE:MISA (01/30/2004 14:56 EST) Sed. Rate Misa 17 0 - 20 mm/hr [facility] 01/30/2004 14:5 6 EST 01/30/2004 15:01 EST Yovana Callejas MD HEMATOLOGY & PF4 ORDERABLES Performing Organization Address City/State/[facility] Co de Phone Number [facility] [address] [place] [address] * SS-B/LA ANTIBODY, IGG, SERUM (01/30/2004 14:56 EST) Autoantibodies to SS B/La <1.0Unit: U(Note) -- EXPECTED VALUES -- ? (Ref Range) Negative: ??<20.0 ? Borderline: ??20.0-24.9 ? Positive: >= 25.0 ? TEST PERFORMED OR REFERRED BY [facility] ? [address] ? [place] [address] ? Lab Pack Chemist: ? A. Blake, M.D. ? [facility] 01/30/2004 14:5 6 EST 01/30/2004 15:01 EST Yovana Callejas MD IMMUNOLOGY AND Annmarie EROLOGY ORDERABLES [facility] [address] [place] [address] * SS-A/RO ANTIBODY, IGG, SERUM (01/30/2004 14:56 EST) Autoantibodies to SS A/Ro 1.7Unit: U(Note) -- EXPECTED VALUES -- ? (Ref Range) Negative: ??<20.0 ? Borderline: ??20.0-24.9 ? Positive: >= 25.0 ? TEST PERFORMED OR REFERRED BY [facility] ? [address] ? [place] [address] ? Lab Pack Chemist: ? Curtis Blake M.D. ? [facility] 01/30/2004 14:5 6 EST 01/30/2004 15:01 EST Yovana Callejas MD IMMUNOLOGY AND S EROLOGY ORDERABLES [facility] [address] [place] [address] * IGA (01/30/2004 14:56 EST) IgA 168 82 - 453 mg/dl [facility] 01/30/2004 14:5 6 EST 01/30/2004 15:01 EST Yovana Callejas MD CHEMISTRY & BLOO D GAS ORDERABLES Performing Organization Address [facility] Co de Phone Number [facility] [address] [place] [address] * ANTI DNA (DOUBLE STRAND) (01/30/2004 14:56 EST) Anti DNA (DS) Neg NEG [facility] 01/30/2004 14:5 6 EST 01/30/2004 15:01 EST Yovana Callejas MD IMMUNOLOGY AND S EROLOGY ORDERABLES Performing Organization Address [facility] de Phone Number [facility] [address] [place] [address] * C4 COMPLEMENT (01/30/2004 14:56 EST) C4 Complement 26 16 - 38 mg/dl [facility] 01/30/2004 14:5 6 EST 01/30/2004 15:01 EST Yovana Callejas MD CHEMISTRY & BLOO D GAS ORDERABLES Performing Organization Address [facility] de Phone Number [facility] [address] [place] [address] * C3 COMPLEMENT (01/30/2004 14:56 EST) C3 Complement 125 79 - 152 mg/dl [facility] 01/30/2004 14:5 6 EST 01/30/2004 15:01 EST Yovana Callejas MD CHEMISTRY & BLOO D GAS ORDERABLES Performing Organization Address [facility]/ZIP Co de Phone Number [facility] [address] [place] [address] * UA REFLEX (01/30/2004 14:56 EST) UA Billing Microscopic not indicated. [facility] 01/30/2004 14:5 6 EST 01/30/2004 15:01 EST Yovana Callejas MD URINALYSIS ORDER ONELIA Performing Organization Address [facility] de Phone Number [facility] [address] [place] [address] * (ABNORMAL) URINALYSIS (01/30/2004 14:56 EST) Color, UA Yellow [facility] Clarity, UA Clear [facility] Glucose, UA Norm NORM [facility] Bilirubin, UA Neg NEG [facility] Ketones, UA Trace(A) NEG [facility] Specific [place], Urine >1.030(H) 1.005 - 1.02 [facility] Blood, UA Neg NEG [facility] pH, UA 6.5 5.0 - 9.0 [facility] Protein, UA Neg NEG [facility] Urobilinogen, UA 1.0(A) NORM mg/dL [facility] Nitrite, UA Neg NEG [facility] Leuk Esterase Neg NEG [facility] Refractometer SG,Urine 1.029(H) 1.005 - 1.02 [facility] 01/30/2004 14:5 6 EST 01/30/2004 15:01 EST Yovana Callejas MD URINALYSIS ORDER ONELIA Performing Organization Address [facility] Co de Phone Number [facility] [address] [place] [address] documented in this encounter Visit Diagnoses Not on filedocumented in this encounter Care Teams Coal Sample Tester Relationship Specialty Start Date End Date Remedios Mehta MD [address] [place] [phone] PCP - General 02/19/09 01/04/15 documented as of this encounter
--- OUTSIDE RECORDS SUMMARY | 2024-06-24 02:27 | XMS_ITS | Encounter Summary ---
Author Organization [facility] Address [address] [place] [address] Care Team Providers Care Electrical Solderer Name Role Phone Unavailable Primary Care Provider Unavailabl e Encounter Details Date Type Department Care Team (Late st Contact Info) Description 08/23/2004 11:49 EDT Hospital Encounter [facility] - Other [address] [place] [address] Yovana Callejas MD [address] [facility] [address] [place] [address] Zhou Callejas [address] [phone] Social History Tobacco Use Types Packs/Day Years [...] Asthma 133/57(2020 14:39 EDT) No Emily Gibson, SPECIMEN BOSS LDL < 130 Result Component Hyperlipidemia 143( 4 11:54 EDT) No Emily Gibson LPN documented as of this encounter Procedures Procedure Name Priority Date/Time Associated Diagnosis Comments URINALYSIS WITH MICROSCOPIC IF POSITIVE Routine 08/23/2004 11:59 EDT UA REFLEX Routine 08/23/2004 11:59 EDT SED RATE Routine 08/23/2004 11:58 EDT documented in this encounter Results * UA REFLEX (08/23/2004 11:59 EDT) UA Billing Microscopic not indicated. [facility] 08/23/2004 11:5 9 EDT 08/23/2004 12:18 EDT Yovana Callejas MD URINALYSIS ORDER ONELIA [facility] [address] [place] [address] * (ABNORMAL) URINALYSIS (08/23/2004 11:59 EDT) Color, UA Yellow [facility] Clarity, UA Clear [facility] Glucose, UA Norm NORM [facility] Bilirubin, UA Neg NEG [facility] Ketones, UA Neg NEG [facility] Specific [place], Urine 1.020 1.005 - 1.02 [facility] Blood, UA Neg NEG [facility] pH, UA 7.0 5.0 - 9.0 [facility] Protein, UA Neg NEG [facility] Urobilinogen, UA 1.0(A) NORM mg/dL [facility] Nitrite, UA Neg NEG [facility] Leuk Esterase Neg NEG [facility] 08/23/2004 11:5 9 EDT 08/23/2004 12:18 EDT Yovana Callejas MD URINALYSIS ORDER ONELIA Performing Organization Address [facility] Co de Phone Number [facility] [address] [place] [address] * SED. RATE:MISA (08/23/2004 11:58 EDT) Sed. Rate [place] 12 0 - 20 mm/hr [facility] 08/23/2004 11:5 8 EDT 08/23/2004 12:18 EDT Yovana Callejas MD HEMATOLOGY & PF4 ORDERABLES Performing Organization Address [facility] de Phone Number [facility] [address] [place] [address] documented in this encounter Visit Diagnoses Not on filedocumented in this encounter Additional Health Concerns Infection Onset Date Last Indicated Resolved Time Rule-Out C. difficile 2021 04/16/20212020 13:40 EDT C. difficile 04/16/2021 04/16/2021 06/15/2021 22:1 5 EDT documented as of this encounter
--- OUTSIDE RECORDS SUMMARY | 2024-06-24 02:27 | XMS_ITS | Encounter Summary ---
Author Organization [facility] Address [address] [place] [address] Care Team Providers Care Gynecological Assistant Name Role Phone Remedios Mehta MD Primary Care Provider + [phone] Encounter Details Date Type Department Care Team (Late st Contact Info) Description 06/23/2005 Office Visit [facility] - Maple conversion [address] [place] [address] Peter Hall MD [address] [facility], Level [address] [place] [address] Social History Tobacco Use Types Packs/Day Years Used Date Smoking Tobacco: Never Assessed Sex and Gender Information Value Date Recorded Sex Assigned at Not on file Gender Identity Female 2021 11:19 EDT Sexual Orientation Not on file documented as of this encounter Progress Notes * Peter Hall MD - 12/29/2009 0555 EST Department - Physician Summary Registration Date/Time: 06/23/2005 8:43 Arrived- By private vehicle. Historian- patient. HISTORY OF PRESENT ILLNESS Chief Complaint- Injury to the left ankle. The injury happened just prior to arrival today. (Stepping up to a dock). Occurred at work. She heard a loud pop. Patient is experiencing moderate pain. No other injury. REVIEW OF SYSTEMS The patient complains of pain on weight bearing. No weakness, tingling, numbness or skin laceration. No chest pain or difficulty breathing. PAST HISTORY Asthma. Arthritis. Medications: See nurses notes. Allergies: See nurses notes. ADDITIONAL NOTES The nursing notes have been reviewed. PHYSICAL EXAM Appearance: Alert. No acute distress. Head: Head atraumatic. Eyes: Pupils equal, round and reactive to light. Eyes normal inspection. Skin: Skin intact. Skin warm and dry. Extremities: Left ankle: tenderness localized to the Achilles tendon. Limited ROM (diminished plantar flexion + Luciano test). No swelling or laceration. No extremity tenderness in other areas. Neuro, Vascular and Tendons: Sensation intact. Motor deficit present. Neuro: Oriented X 3. No sensory deficit. LABS, X-RAYS, AND EKG X-Rays: X-rays are normal. The X-rays have been independently viewed by me. PROGRESS AND PROCEDURES Splint Application: Posterior plaster splint applied to ankle. Splint applied by orthopedist. Follow-up recommended within 7 days. E.D. Course: 10:48. Patient is stable. Discussed case with on-call physician, for Ortho Disposition: Discharged home. Condition: stable. CLINICAL IMPRESSION Ruptured Achilles tendon. INSTRUCTIONS Use crutches. Wear splint. Elevate affected areas above chest level. Modified duty as described above (No extensive walking). No strenuous activity. No weight bearing. Warnings: GENERAL WARNINGS: Return or contact your physician immediately if your condition worsens or changesunexpectedly, if not improving as expected, or if other problems arise. Specifically, return if pain worsens or fails to improve. Follow-up: Follow up with Doctor. Follow-up: SENIA DOYLE MD, ORTHOPAEDICS/TRAUMA, [phone], [address] [place], [address] Follow up in about seven days even if well. (Electronically signed by Peter Hall M.D. 06/23/2005 13:23) Arrived- By private vehicle. Historian- patient. Attending Note: I supervised care provided by the resident. We have discussed the case. I personally interviewed the patient and examined the patient. HISTORY OF PRESENT ILLNESS Chief Complaint- Injury to the left ankle. The injury happened just prior to arrival today. (Stepping up to a dock). Occurred at work. Patient is experiencing moderate pain. No other injury. Additional history - She has had moderate joint pain, involving the left ankle. The patient has haddifficulty with ambulation. No fever, chills, sweats, fatigue or eye irritation. No ear pain or drainage, nasal congestion or discharge or sorethroat. No chest pain, palpitations, difficulty breathing, cough or nausea. No vomiting, abdominal pain, urinary problems, neck pain or skin rash. No headache, head injury, numbness or easy bruising. REVIEW OF SYSTEMS The patient complains of pain on weight bearing. No weakness, tingling, numbness or skin laceration. She complains of pain on weight bearing. The patient has had joint pain. She has had difficulty with ambulation. No fever, chills, sweats, fatigue or eye irritation. No decreased vision, ear pain ordrainage, nasal congestion or sore throat. No chest pain, palpitations, difficulty breathing, nausea or vomiting.No abdominal pain, urinary problems, neck pain or skin rash or lesions. No headache, head injury, numbness, weakness or easy bruising. PAST HISTORY See nurses notes. Asthma. Arthritis. Medications: See nurses notes. Allergies: See nurses notes. SOCIAL HISTORY Nonsmoker. ADDITIONAL NOTES The nursing notes have been reviewed. PHYSICAL EXAM Appearance: Alert. No acute distress. Head: Head atraumatic. Eyes: Pupils equal, round and reactive to light. Eyes normal inspection. ENT: Ears normal. Nose normal. Pharynx normal. Neck: Normal inspection. Neck supple. CVS: Normal heart rate and rhythm. Heart sounds normal. Pulses normal. Respiratory: No respiratory distress. Breath sounds normal. Chest nontender. Abdomen: Abdomen soft and nontender. Back: Normal inspection. No back tenderness. ROM normal. Skin intact. Skin warm and dry. Extremities: Left ankle: tenderness localized to the Achilles tendon. Limited ROM (diminished plantar flexion + Luciano test). No swelling or laceration. Patient has a tender gastrocnemius muscle Noextremity tenderness in other areas. Gait: Gait not tested due to pain. Neuro, Vascular and Tendons: Vascular status intact. Sensation intact. Motor deficit present. Neuro: Oriented X 3. No sensory deficit. LABS, X-RAYS, AND EKG Lt Ankle X-ray: No fracture. Technique: good. The left ankle X-ray was independently viewed by me, interpreted by the radiologist and discussed with the radiologist. PROGRESS AND PROCEDURES Splint Application: plaster splint applied to ankle and lower leg. Splint applied by orthopedist. Follow-up recommended within 7 days. E.D. Course: Orthopedic consult obtained ,Dr.Tucker Funk, in to evaluate the patient. Posterior splint applied. Crutches provided. Discussed case with on-call physician, for Ortho Patient/family counseled. Additional history sought. I consider dislocation, compartment syndrome, tendonitis, ischemia and deep venous thrombosis unlikely as a cause of lower extremity pain in this patient. This is a partial list of diagnosesconsidered. Above considerations are based on history, physical exam, past history, reassessment, X-Ray data and consultation. Differential diagnosis was discussed with patient. Disposition: Discharged home in good condition. Condition: stable. Discharged home in good condition and improved condition. CLINICAL IMPRESSION Ruptured Achilles tendon. INSTRUCTIONS Use crutches. Wear splint. Elevate affected areas above chest level. Modified duty as described above (No extensive walking). No strenuous activity. No weight bearing. Discharge instructions as per resident and orthopedic surgeon note. Warnings: GENERAL WARNINGS: Return or contact your physician immediately if your condition worsens or changesunexpectedly, if not improving as expected, or if other problems arise. Specifically, return if pain worsens or fails to improve. Follow-up: Follow up with Doctor. Follow-up: SENIA DOYLE MD, ORTHOPAEDICS/TRAUMA, [phone], [address] [place], [address] Follow up in about seven days even if well. (Electronically signed by Panda Colorado MD 06/23/2005 11:35) Department - Nursing Summary Registration Date/Time: 06/23/2005 8:43 TRIAGE Initial Assessment Triage time 08:45 Jun 23 2005 Acuity: LEVEL 4. BP: 107 / 65 HR: 74 Temp: 36.4 Alert. No acute distress. --8908 Jessy Lozoya R.N. Medications (ACCOLATE, HYDROPLAQUNIL, TRAZADOME, ZELNORM, ADVIR, PROTONIX, CALCIUM WITH VIT D). --0851 Jessy Lozoya R.N. Allergies (CODIENE, PCN, ASA, SULFA DRUGS). --0851 Jessy Lozoya R.N. History Chief Complaint: INJURY TO LEFT LEG. This occurred just priorto arrival. Mechanism of injury: twisting injury (STEPPING UP ONTO DOCK). Pain level now: 04/08. The patient has had moderate tingling (AROUND ANKLE AND FOOT). The patient has had moderate trouble walking. (PT. STATE s, HEARD A POP). PAST HX: Asthma. SOCIAL HX: Nonsmoker. Denies alcohol use. No report of abuse. Arrived by private vehicle. Historian: patient. --0851 Jessy Lozoya R.N. NURSING PROGRESS NOTES Progress late entry - 1000 (Pt seen by ortho resident, casted by ortho). --1121 Carolann Stone R.N. Patient fit with crutches. Crutch training performed by nurse; the patient demonstrated proper use.--1125 Carolann Stone R.N. ACETAMINOPHEN 650 mg PO. --1127 Carolann Stone R.N. DISPOSITION / DISCHARGE (pt given work note by RN and w/c'd out of ER to rec'vride from friend via pvt auto.). --1118 Yovana Quezada R.N. Condition at departure: stable. No barriers to learning present. Discharge instructions reviewed with the patient. Warnings reviewed. Reviewed medication. Treatments reviewed. Reviewed referrals. Patient verbalized understanding. Written instructions provided in Georgian. The patient was discharged to work. The patient left the Emergency Department in a wheelchair and via private vehicle. Driving (pt awaiting ride from friend). --1126 Lyla Bruce R.N., R.N. Kelly Cota R.N. Locked/Released at 06/25/2005 6:18 by Мария Stewart R.N. documented in this encounter Plan of Treatment Not on file documented as of this encounter Visit Diagnoses Not on filedocumented in this encounter Care Teams Gynecological Assistant Relationship Specialty Start Date End Date Alexander, Remedios Brook, MD [address] [place] [address] PCP - General 02/19/09 01/04/15 documented as of this encounter
--- OUTSIDE RECORDS SUMMARY | 2024-06-24 02:27 | XMS_ITS | Encounter Summary ---
Author Organization [facility] Address [address] [place] [address] Care Team Providers Care Food And Beverage Analyst Name Role Phone Unavailable Primary Care Provider Unavailabl e Encounter Details Date Type Department Care Team (Late st Contact Info) Description 02/06/2003 15:30 EDT Hospital Encounter [facility] - Maple conversion [address] [place] [address] MD [address] [place] [address] MD [address] [place] [address] Social History Tobacco Use Types [...]
--- OUTSIDE RECORDS SUMMARY | 2024-06-24 02:27 | XMS_ITS | Encounter Summary ---
Author Organization [facility] Address [address] [place] [address] Care Team Providers Care Rubber Flap Tuber Machine Operator Name Role Phone Unavailable Primary Care Provider Unavailabl e Encounter Details Date Type Department Care Team (Late st Contact Info) Description 12/06/2001 16:16 [facility] Hospital Encounter [address] MD [address] [id number] Social History Tobacco Use Types Packs/Day Years [...] Asthma 133/57(2020 14:39 EDT) No Emily Gibson, LICENSED VETERINARY TECHNICIAN LDL < 130 Result Component Hyperlipidemia 143( 4 11:54 EDT) No Emily Gibson LPN documented as of this encounter Procedures Procedure Name Priority Date/Time Associated Diagnosis Comments THEOPHYLLINE Routine 12/06/2001 16:49 EST documented in this encounter Results * (ABNORMAL) THEOPHYLLINE (12/06/2001 16:49 EST) Theophylline 2.9(L) 10.0 - 20.0 ug/ml [facility] 12/06/2001 16:4 9 EST 12/06/2001 16:[address] MD CHEMISTRY & BLOOD GA S ORDERABLES Performing Organization Address City/State/[facility] Co de Phone Number [facility] [address] [place] [address] documented in this encounter Visit Diagnoses Not on filedocumented in this encounter Additional Health Concerns Infection Onset Date Last Indicated Resolved Time Rule-Out C. difficile 2021 04/16/20212020 13:40 EDT C. difficile 04/16/2021 04/16/2021 06/15/2021 22:1 5 EDT documented as of this encounter
--- OUTSIDE RECORDS SUMMARY | 2024-06-24 02:27 | XMS_ITS | Encounter Summary ---
Author Organization [facility] Address [address] [place] [address] Care Team Providers Care Curber Name Role Phone Remedios Mehta MD Primary Care Provider [phone] Encounter Details Date Type Department Care Team (Late st Contact Info) Description 10/14/2002 Results Only [facility] - Map conversion [address] [place] [address] Rica Bai NP Social History Tobacco Use Types Packs/Day Years Used Date Smoking Tobacco: Never Assessed Sex and Gender Information Value Date Recorded Sex Assigned at Not on file Gender Identity Female 2021 11:19 EDT Sexual Orientation Not on file documented as of this encounter Plan of Treatment Not on file documented as of this encounter Procedures Procedure Name Priority Date/Time Associated Diagnosis Comments RUBELLA IGG AB Routine 10/14/2002 10:20 EST MEASLES IGG AB Routine 10/14/2002 10:20 EST documented in this encounter Results * RUBELLA IGG AB (10/14/2002 10:20 EST) Rubella IgG Scr Antibody not detected [facility] 10/14/2002 10:2 0 EST 10/14/2002 13:33 EST Rica Bai NP HISTORICAL LAB FOR SQ LOAD [facility] [address] [place] [address] * RUBEOLA IGG ANTIBODY (10/14/2002 10:20 EST) Rubeola IgG Ab Antibody detected [facility] 10/14/2002 10:2 0 EST 10/14/2002 13:33 EST Rica Bai AUTHORS MOTIVATIONAL IMMUNOLOGY AND SERO LOGY ORDERABLES Performing Organization Address City/[facility] Co de Phone Number [facility] [address] [place] [address] documented in this encounter Visit Diagnoses Not on filedocumented in this encounter Care Teams Curber Relationship Specialty Start Date End Date Remedios Mehta MD [address] [place] [phone] PCP - General 02/19/09 01/04/15 documented as of this encounter
--- OUTSIDE RECORDS SUMMARY | 2024-06-24 02:27 | XMS_ITS | Encounter Summary ---
Author Organization [facility] Address [address] [place] [address] Care Team Providers Care Fast Food Server Name Role Phone Unavailable Primary Care Provider Unavailabl e Encounter Details Date Type Department Care Team (Late st Contact Info) Description 02/21/2001 10:29 EDT Hospital Encounter [address] [address] Bebo Phelan [address] [place] [phone] Social History Tobacco Use Types Packs/Day Years [...] Asthma 133/57(2020 14:39 EDT) No Emily Gibson, INFORMATION SECURITY ANALYST LDL < 130 Result Component Hyperlipidemia 143( 4 11:54 EDT) No Emily Gibson LPN documented as of this encounter Procedures Procedure Name Priority Date/Time Associated Diagnosis Comments SINUSES 1 OR 2 VIEWS Routine 02/23/2001 10:30 EDT documented in this encounter Results * SINUSES 1 OR 2 VIEWS (02/23/2001 10:30 EDT) Anatomical Region Laterality Modality Other 02/23/2001 10:3 0 EDT Narrative 09/08/2009 22:48 EST sinus congestion ? sinusitis do sinus moseley view only 02-23-01 TWO VIEWS OF THE SINUSES: The frontal sinuses are clear. There is mimimal mucosal thickening of the right maxillary sinus increased perhaps since 1993 but there is no air fluid level, the findings are extremely minimal and I would doubt are of specific significance. Without a lateral view we are unable to evaluate the sphenoid sinuses. D: 02-23-01 T: 02-26-01 /am Procedure Note Pk Connell MD - 09/08/2009 sinus congestion ? sinusitis do sinus moseley view only 02-23-01 TWO VIEWS OF THE SINUSES: The frontal sinuses are clear. There is mimimal mucosal thickening of the right maxillary sinus increased perhaps since 1993 but there is no air fluid level, the findings are extremely minimal and I would doubt are of specific significance. Without a lateral view we are unable to evaluate the sphenoid sinuses. D: 02-23-01 T: 02-26-01 /am Mauro Lane MD IMG DIAGNOSTIC IMAGI NG ORDERABLES documented in this encounter Visit Diagnoses Not on filedocumented in this encounter Additional Health Concerns Infection Onset Date Last Indicated Resolved Time Rule-Out C. difficile 2021 04/16/20212020 13:40 EDT C. difficile 04/16/2021 04/16/2021 06/15/2021 22:1 5 EDT documented as of this encounter
--- OUTSIDE RECORDS SUMMARY | 2024-06-24 02:27 | XMS_ITS | Encounter Summary ---
Author Organization [facility] Address [address] [place] [address] Care Team Providers Care Bilingual Case Manager Name Role Phone Remedios Mehta MD Primary Care Provider + [phone] Encounter Details Date Type Department Care Team (Late st Contact Info) Description 05/23/2005 Before PRISM Converted Visit (Maple) [facility] - Maple conversion [address] [place] [address] Yovana Callejas MD [address] [place] [address] [address] [place] [phone] Social History Tobacco Use Types Packs/Day Years Used Date Smoking Tobacco: Never Assessed Sex and Gender Information Value Date Recorded Sex Assigned at Not on file Gender Identity Female 2021 11:19 EDT Sexual Orientation Not on file documented as of this encounter Progress Notes * Yovana Callejas MD - 12/31/2009 1000 EST DIVISION OF RHEUMATOLOGY PROGRESS/FOLLOWUP NOTE - 05/23/2005 CHIEF COMPLAINT: Ms. Husain is here in followup of arthralgias. SUBJECTIVE: She is actually feeling better lately with regard to her arthralgias, but has had increasing bruising. She was also seen at [facility] last week and told she had proteinuria and should be seen by me as soon as possible. Patient also reports she had a vaginal infection that was to be treated with an antibiotic, which she has not yet started. She currently has her menstrual period. She is most concerned about bruising which is developing over her forearms. This seems to come up with minimal or no trauma. It is sometimes painful. It has been going on for some period of time, butseems to be getting worse over the past six months. There is no historyof bleeding diathesis, no history of hemorrhage following the delivery of her son, and no history of blood clot disorder or family history of excessive bleeding. Medications include Plaquenil 200 mg twice a day; trazodone 75 mg at night; Advair; Accolate; Protonix; and Zelnorm. On review of systems, she has lost weight, and attributes this to the dissolution of her marriage, but otherwise feels well. GI: Appetite has not been as good as it was. Skin: See above. Neurologic: No weakness or dysesthesias. HEENT: Occasional headaches, but no visual changes. Psych: Mood is stressed, but overall, she feels her decision to leave her was a good one. OBJECTIVE: On examination, weight is declined; blood pressure 106/66, pulse 64, respiratory rate 16. Pain is present throughout her body. Skin: Some ecchymotic changes over the right anterior thigh and on the left medial forearm. Another ecchymotic change is noted over the right forearm. There is no nodularity to these changes, although they are tender to palpation. No ocular inflammation or oralulcers. Chest is clear. Cardiac exam: Regular rate and rhythm. Symmetric radial pulses. Abdomen is soft and nontender; there is mild left upper quadrant discomfort. Neurologic: 5/5 hand patient escort, shoulder abduction, hip flexion and knee extension. No peripheral edema. Joints show no synovitis. IMPRESSION: 1. Arthralgias, likely stress related. 2. History of proteinuria, etiology unclear. Patient currently menstruating and cannot repeat UA today. 3. Excessive bruising. Could be related to collagen vascular disease, although patient has only a mildly positive GAYLE and has previously had extensive negative workup. PLAN: 1. Obtain CBC with differential and platelet count. If platelets are significantly low, further evaluation would be warranted. 2. Referred patient to hematology at her request, given her concerns about increasing bruising. 3. Avoid nonsteroidals. 4. Repeat urinalysis once menstrual period has stopped. . Followup with patient with regard to results of her laboratory testing. 06/06/05 CBC and differential are normal. Platelets are normal, GAYLE negative, ESR 13. Patient has not provided repeat UA as of this date. Signed by Yovana Callejas MD 06/06/2005 09:50 Jens Alonso MD Yovana Callejas MD D: - Yovana Callejas MD P - SA Job ID: Document ID: [id number] cc: Harsha Chong MD [facility]-Hematology/Oncology, [place] [address], [facility]* documented in this encounter Plan of Treatment Not on file documented as of this encounter Visit Diagnoses Not on filedocumented in this encounter Care Teams Bilingual Case Manager Relationship Specialty Start Date End Date Remedios Mehta MD [address] [place] [phone] PCP - General 02/19/09 01/04/15 documented as of this encounter
--- OUTSIDE RECORDS SUMMARY | 2024-06-24 02:27 | XMS_ITS | Encounter Summary ---
Author Organization [facility] Address [address] [place] [address] Care Team Providers Care Heel Breaster Name Role Phone Unavailable Primary Care Provider Unavailabl e Encounter Details Date Type Department Care Team (Late st Contact Info) Description 01/30/2004 14:13 EST Hospital Encounter [facility] [address] [place] [address] Yovana Callejas MD [address] [place] [address] [address] [place] [address] Discharge Disposition: Auto Discharge Social History [...] Procedure Name Priority Date/Time Associated Diagnosis Comments HAND 2 VIEWS Routine 01/30/2004 15:03 EST HAND 2 VIEWS Routine 01/30/2004 15:01 EST documented in this encounter Results * HAND 2 VIEWS (01/30/2004 15:03 EST) Anatomical Region Laterality Modality Other 01/30/2004 15:0 3 EST Narrative 07/13/2009 12:57 EDT BILATERLA HAND PAIN AND SWELLING R/O EROSIONS BILATERAL HANDS, 01/30/04 COMPARISON: None. PA and lateral views of both hands. There is swelling of the soft tissues of the proximal aspects of the fingers as well as possible MCP periarticular soft tissue swelling. No joint space narrowing or bone erosion is identified. Bone density is normal. /[facility] Procedure Note Wilfred Mcnair MD - 07/13/2009 BILATERLA HAND PAIN AND SWELLING R/O EROSIONS BILATERAL HANDS, 01/30/04 COMPARISON: None. PA and lateral views of both hands. There is swelling of the soft tissues of the proximal aspects of the fingers as well as possible MCP periarticular soft tissue swelling. No joint space narrowing or bone erosion is identified. Bone density is normal. /[facility] Yovana MINER DIAGNOSTIC I MAGING ORDERABLES * HAND 2 VIEWS (01/30/2004 15:01 EST) Anatomical Region Laterality Modality Other 01/30/2004 15:0 1 EST Narrative 07/13/2009 12:57 EDT BILATERLA HAND PAIN AND SWELLING R/O EROSIONS Procedure Note Wilfred Mcnair MD - 07/13/2009 BILATERLA HAND PAIN AND SWELLING R/O EROSIONS Yovana MINER DIAGNOSTIC I MAGING ORDERABLES documented in this encounter Visit Diagnoses Not on filedocumented in this encounter
--- OUTSIDE RECORDS SUMMARY | 2024-06-24 02:27 | XMS_ITS | Encounter Summary ---
Author Organization [facility] Address [address] [place] [address] Care Team Providers Care Rn Document Improvement Name Role Phone Unavailable Primary Care Provider Unavailabl e Encounter Details Date Type Department Care Team (Latest Contact Info) Description 01/17/2005 9:00 EST - 01/17/2005 11:59 EST Hospital Encounter [facility] [place] conversion [address] [place] [address] Harsha Chong MD Discharge Disposition: Auto Discharge Social History [...] Associated Diagnosis Comments MA MAMMO SCREENING DIGITAL Routine 01/17/2005 9:44 EST documented in this encounter Results * MA MAMMO SCREENING DIGITAL (01/17/2005 9:44 EST) Anatomical Region Laterality Modality Other 01/17/2005 9:44 EST Impressions 06/25/2009 11:09 EDT IMPRESSION: BILATERAL BREASTS - CATEGORY 1 Negative, no evidence of malignancy. Normal interval follow-up is recommended in 12 months. OVERALL ASSESSMENT - NEGATIVE END OF IMPRESSION Narrative 06/25/2009 11:09 EDT ROUTINE ?FAM HX BR CA AUNT AGE 30'S ?? [PCP JUANCARLOS MONDRAGON] Comparison is made to films from 01-15-2004, 12-25-2002, and 08-14-2001. Bilateral Breast Findings (CAD used to interpret routine digital projection): The breasts are almost entirely fat. No significant masses, calcifications or other abnormalities are seen. Procedure Note Barney Devries MD - 06/25/2009 ROUTINE FAM HX BR CA AUNT AGE 30'S [PCP JUANCARLOS MONDRAGON] Comparison is made to films from 01-15-2004, 12-25-2002, and 08-14-2001. Bilateral Breast Findings (CAD used to interpret routine digital projection): The breasts are almost entirely fat. No significant masses, calcifications or other abnormalities are seen. IMPRESSION IMPRESSION: BILATERAL BREASTS - CATEGORY 1 Negative, no evidence of malignancy. Normal interval follow-up is recommended in 12 months. OVERALL ASSESSMENT - NEGATIVE END OF IMPRESSION Juancarlos Mondragon MD IMG MAMMOGRAPHY O RDERABLES documented in this encounter Visit Diagnoses Not on filedocumented in this encounter
--- OUTSIDE RECORDS SUMMARY | 2024-06-24 02:27 | XMS_ITS | Encounter Summary ---
Author Organization [facility] Address [address] [place] [address] Care Team Providers Care Hostage Negotiator Name Role Phone Unavailable Primary Care Provider Unavailabl e Encounter Details Date Type Department Care Team (Late st Contact Info) Description 02/23/2001 10:52 EDT - 02/23/2001 11:59 EDT Hospital Encounter [address] [address] Shailesh Hays MD [address] [place] [address] MD [address] [place] [address] Discharge Disposition: Auto Discharge Social History Tobacco [...]
--- OUTSIDE RECORDS SUMMARY | 2024-06-24 02:27 | XMS_ITS | Encounter Summary ---
Author Organization [facility] Address [address] [place] [address] Care Team Providers Care Ophthalmology Technician Name Role Phone Unavailable Primary Care Provider Unavailabl e Encounter Details Date Type Department Care Team (Latest Contact Info) Description 06/19/2000 11:08 EDT - 06/19/2000 11:59 EDT Hospital Encounter [address] [address] Madhu Mosley MD [address] [place] [address] Discharge Disposition: Auto Discharge Social History Tobacco [...]
--- OUTSIDE RECORDS SUMMARY | 2024-06-24 02:27 | XMS_ITS | Encounter Summary ---
Author Organization [facility] Address [address] [place] [address] Care Team Providers Care Carbonation Tester Name Role Phone Unavailable Primary Care Provider Unavailabl e Encounter Details Date Type Department Care Team (Late st Contact Info) Description 02/11/2004 8:15 EDT Hospital Encounter [facility] [place] conversion [address] [place] [address] MD [address] [place] [address] Social History Tobacco Use Types Packs/Day [...]
--- OUTSIDE RECORDS SUMMARY | 2024-06-24 02:27 | XMS_ITS | Encounter Summary ---
Author Organization [facility] Address [address] [place] [address] Care Team Providers Care Lens Assorter Name Role Phone Unavailable Primary Care Provider Unavailabl e Encounter Details Date Type Department Care Team (Latest Contact Info) Description 03/18/2002 7:46 EDT - 03/18/2002 11:59 EDT Hospital Encounter [facility] - Other [address] [place] [address] Avel Mondragon MD Unknown, Provider, Discharge Disposition: [...]
--- OUTSIDE RECORDS SUMMARY | 2024-06-24 02:27 | XMS_ITS | Encounter Summary ---
Author Organization [facility] Address [address] [place] [address] Care Team Providers Care Dish Washer Name Role Phone Unavailable Primary Care Provider Unavailabl e Encounter Details Date Type Department Care Team (Late st Contact Info) Description 08/02/2005 8:40 EDT Hospital [facility] [address] [place] [address] Madhu Liu MD [address] [place] [phone] Social History Tobacco Use Types Packs/Day [...]
--- OUTSIDE RECORDS SUMMARY | 2024-06-24 02:27 | XMS_ITS | Encounter Summary ---
Author Organization [facility] Address [address] [place] [address] Care Team Providers Care Match Up Person Name Role Phone Unavailable Primary Care Provider Unavailabl e Encounter Details Date Type Department Care Team (Latest Contact Info) Description 05/30/2004 16:45 EDT - 06/29/2004 11:59 EDT Hospital Encounter [facility] - Other [address] [place] [address] Harsha Chong MD Discharge Disposition: Auto Discharge [...]
--- OUTSIDE RECORDS SUMMARY | 2024-06-24 02:27 | XMS_ITS | Encounter Summary ---
Author Organization [facility] Address [address] [place] [address] Care Team Providers Care Equipment Scheduler Name Role Phone Unavailable Primary Care Provider Unavailabl e Encounter Details Date Type Department Care Team (Late st Contact Info) Description 11/27/2001 15:44 EST Hospital Encounter [facility] [place] conversion [address] [place] [address] MD [address] [place] [address] Social History Tobacco Use Types Packs/Day [...]
--- OUTSIDE RECORDS SUMMARY | 2024-06-24 02:27 | XMS_ITS | Encounter Summary ---
Author Organization [facility] Address [address] [place] [address] Care Team Providers Care Chief Digital Media Officer Name Role Phone Unavailable Primary Care Provider Unavailabl e Encounter Details Date Type Department Care Team (Latest Contact Info) Description 09/13/2001 13:22 EST - 09/28/2001 11:59 EST Hospital Encounter [address] [address] Harsha Chong MD Discharge Disposition: Auto Discharge [...]
--- OUTSIDE RECORDS SUMMARY | 2024-06-24 02:27 | XMS_ITS | Encounter Summary ---
Author Organization [facility] Address [address] [place] [address] Care Team Providers Care Pancake Professional Name Role Phone Unavailable Primary Care Provider Unavailabl e Encounter Details Date Type Department Care Team (Latest Contact Info) Description 03/11/2002 3:07 EDT - 03/11/2002 11:59 EDT Hospital Encounter [facility] [address] [place] [address] Emergency, Default, MD Discharge Disposition: Home or [...] Associated Diagnosis Comments CHEST PA AND LATERAL Routine 03/11/2002 4:13 EDT HOLD Routine 03/11/2002 3:20 EDT LIPASE Routine 03/11/2002 3:20 EDT documented in this encounter Results * CHEST PA AND LATERAL (03/11/2002 4:13 EDT) Anatomical Region Laterality Modality Other 03/11/2002 4:13 EDT Impressions 08/12/2009 1:27 EDT IMPRESSION: #1: Several tiny lung nodules, stable in appearance since 06-19-00. #2: No other abnormality seen. D: 03-11-02 T: 03-12-02 /am Narrative 08/12/2009 1:27 EDT INCREASED SOB. ??R/O PTX 03-11-02 PA AND LATERAL CHEST: INDICATION: Increased shortness of breath. Rule out pneumothorax. TECHNIQUE: PA and lateral chest without comparison. FINDINGS: The cardiomediastinal silhouette is normal. Again noted are several tiny nodules in both lungs. These are unchanged from the 06-19-00 and most likely represent small granulomas. The pleural lines are sharp and no abnormalities of the bones or soft tissues are seen. Procedure Note Ildefonso Mueller MD / Curtis Pacheco MD - 08/12/2009 INCREASED SOB. R/O PTX 03-11-02 PA AND LATERAL CHEST: INDICATION: Increased shortness of breath. Rule out pneumothorax. TECHNIQUE: PA and lateral chest without comparison. FINDINGS: The cardiomediastinal silhouette is normal. Again noted are several tiny nodules in both lungs. These are unchanged from the 06-19-00 and most likely represent small granulomas. The pleural lines are sharp and no abnormalities of the bones or soft tissues are seen. IMPRESSION IMPRESSION: #1: Several tiny lung nodules, stable in appearance since 06-19-00. #2: No other abnormality seen. D: 03-11-02 T: 03-12-02 /am David Ortega MD IMG DIAGNOSTIC IM AGING ORDERABLES * LIPASE (03/11/2002 3:20 EDT) Pathologist [facility] Lipase 185 0 - 210 U/L [facility] 03/11/2002 3:20 EDT 03/11/2002 3:24 EDT Default Emergency CHEMISTRY & BLOOD G ORDERABLES [facility] [address] [place] [address] * HOLD (03/11/2002 3:20 EDT) Hold Sample for coagulation will be discarded after 4 hours EDTA for hematology will be discarded after 48 hours, differential not available after 12 hours. [facility] 03/11/2002 3:20 EDT 03/11/2002 3:24 EDT Default Emergency MD CHEMISTRY & BLOOD G ORDERABLES Performing Organization Address City/State/[facility] Co de Phone Number [facility] [address] [place] [address] documented in this encounter Visit Diagnoses Not on filedocumented in this encounter
--- OUTSIDE RECORDS SUMMARY | 2024-06-24 02:27 | XMS_ITS | Encounter Summary ---
Author Organization [facility] Address [address] [place] [address] Care Team Providers Care Wrapper Counter Name Role Phone Remedios Mehta MD Primary Care Provider + [phone] Encounter Details Date Type Department Care Team (Late st Contact Info) Description 06/14/2004 Before PRISM Converted Visit ([place]) [facility] [place] conversion [address] [place] [address] Ly Shipley [facility] [address] [place] [address] Social History Tobacco Use Types Packs/Day Years Used Date Smoking Tobacco: Never Assessed Sex and Gender Information Value Date Recorded Sex Assigned at Not on file Gender Identity Female 2021 11:19 EDT Sexual Orientation Not on file documented as of this encounter Plan of Treatment Not on file documented as of this encounter Visit Diagnoses Not on filedocumented in this encounter Care Teams Wrapper Counter Relationship Specialty Start Date End Date Remedios Mehta MD [address] [place] [phone] PCP - General 02/19/09 01/04/15 documented as of this encounter
--- OUTSIDE RECORDS SUMMARY | 2024-06-24 02:27 | XMS_ITS | Encounter Summary ---
Author Organization [facility] Address [address] [place] [address] Care Team Providers Care Newspaper Subscription Solicitor Name Role Phone Remedios Metha MD Primary Care Provider [phone] Encounter Details Date Type Department Care Team (Late st Contact Info) Description 06/10/2005 Before PRISM Converted Visit ([place]) [facility] [place] conversion [address] [place] [address] MD [address] [place] [address] Social History Tobacco Use Types Packs/Day Years Used Date Smoking Tobacco: Never Assessed Sex and Gender Information Value Date Recorded Sex Assigned at Not on file Gender Identity Female 2021 11:19 EDT Sexual Orientation Not on file documented as of this encounter Progress Notes * Senthil, Conv Technician [employer] - 12/29/2009 1659 EST DIVISION OF PULMONARY PROGRESS/FOLLOWUP NOTE - 06/10/2005 PROBLEM: Asthma and vocal cord dysfunction. SUBJECTIVE: Ms. Husain reports that she has been doing fairly well. She had, after her last visit,an evaluation and was found to have increased tonsils which she was treated for two treatments and seemed to have improved in terms of her asthma. She does relate, however, that she is going through a great deal of stress in her life currently. However, she is not continuingto do her vocal cord dysfunction speech therapy exercises. She has had no episodes of thrush. Suses albuterol up to 4 times a day but many of theses uses are associated with a pre exercise use. OBJECTIVE: Weight 195, temperature 33.9, sat 98, blood pressure 110/64, pulse 56, respirations 12. Lungs: Clear to auscultation bilaterally. Pulmonary function tests reveal FVC of 2.01 and FEV1 of 1.79, 66 and 59% of predicted respectively.However, she exhaled for less than 4 seconds and had suboptimal technique glottic closure. Nonetheless, there is some improvement over her last spirometry which was done on February 11, 2004, which was also with suboptimal technique,but showed an FVC of 1.81 and FEV1 of 1.52. Although this is hard to interpret under the conditions, for what it is worth there seems to be some improvement. ASSESSMENT: Asthma and vocal cord dysfunction, fairly well controlled, currently receiving Advair and Accolate. It is important the she continue her vocal cord speech therapy exercises. PLAN: 1. Continue on current treatment of regimen. 2. I reviewed with her the importance, especially ongoing stress, that she continue her exercises as it is difficult to discern when her symptoms worsen, what is vocal cord dysfunction, what is asthma. I pointed out that this could lead to her being hospiand being on prednisone. 3. I advised her that if she develops any symptoms of an infection, that she should go on antibiotics immediately. 4. Followup in six months. Signed by Mauro Lane MD 06/14/2005 14:02 Fortino Varela MD Mauro Lane MD - Mauro Lane MD P - do Job ID: [id number] Document ID: [id number] cc: Harsha Chong MD documented in this encounter Plan of Treatment Not on file documented as of this encounter Visit Diagnoses Not on filedocumented in this encounter Care Teams Newspaper Subscription Solicitor Relationship Specialty Start Date End Date Remedios Mehta MD [address] [place] [phone] PCP - General 02/19/09 01/04/15 documented as of this encounter
--- OUTSIDE RECORDS SUMMARY | 2024-06-24 02:27 | XMS_ITS | Encounter Summary ---
Author Organization [facility] Address [address] [place] [address] Care Team Providers Care Exotic Dancer Name Role Phone Unavailable Primary Care Provider Unavailabl e Encounter Details Date Type Department Care Team (Late st Contact Info) Description 12/01/2000 10:40 EST Hospital Encounter [facility] - [place] conversion [address] [place] [address] Yonathan Pantoja MD [address] [facility], [address] [place] [address] Social History Tobacco Use Types [...]
--- OUTSIDE RECORDS SUMMARY | 2024-06-24 02:27 | XMS_ITS | Encounter Summary ---
Author Organization [facility] Address [address] [place] [address] Care Team Providers Care Apiculturist Name Role Phone Unavailable Primary Care Provider Unavailabl e Encounter Details Date Type Department Care Team (Latest Contact Info) Description 01/15/2004 13:06 EST Hospital Encounter [facility] [place] conversion [address] [place] [address] Harsha Chong MD Discharge Disposition: Auto Discharge [...] Procedure Name Priority Date/Time Associated Diagnosis Comments ARTHRITIS 1 Routine 01/20/2004 9:20 EST GAYLE TITER Routine 01/20/2004 9:20 EST SED RATE Routine 01/20/2004 9:20 EST GLUCOSE, SERUM Routine 01/20/2004 9:20 EST MA MAMMO SCREENING DIGITAL Routine 01/15/2004 13:35 EST documented in this encounter Results * SED. RATE:WESTERGREN (01/20/2004 9:20 EST) Sed. Rate Westergren 18 0 - 20 mm/hr [facility] Comment: Note: Sample greater than 4 hrs old (but less than 12 hrs) when tested. If refrigerated, sample is stable when tested within 12 hours of collection. 01/20/2004 9:20 EST 01/20/2004 15:19 EST Elvi Bai NP HEMATOLOGY & PF4 OR DERABLES Performing Organization Address [facility] Co de Phone Number [facility] [address] [place] [address] * GLUCOSE, SERUM (01/20/2004 9:20 EST) Pathologist [facility] Glucose, Serum 84 70 - 110 mg/dl [facility] Comment:Fasting 01/20/2004 9:20 EST 01/20/2004 15:19 EST Elvi Bai NP CHEMISTRY & BLOOD G ORDERABLES Performing Organization Address [facility] de Phone Number [facility] [address] [place] [address] * ARTHRITIS 1 (01/20/2004 9:20 EST) Pathologist [facility] Anti Nuclear Ab Positive at 40 dils, titer to follow. 0 - 40 Dils [facility] Rheumatoid Factor <20 <20 IU/ml [facility] 01/20/2004 9:20 EST 01/20/2004 15:19 EST Elvi Bai SENIOR COMMISSARY AGENT IMMUNOLOGY AND SERO LOGY ORDERABLES Performing Organization Address [facility] de Phone Number [facility] [address] [place] [address] * (ABNORMAL) GAYLE TITER (01/20/2004 9:20 EST) Pathologist [facility] GAYLE Titer 80(H) 0 - 40 dils [facility] Comment:Speckled pattern 01/20/2004 9:20 EST 01/20/2004 15:19 EST Elvi Bai NP IMMUNOLOGY AND SERO LOGY ORDERABLES [facility] [address] [place] [address] * MA MAMMO SCREENING DIGITAL (01/15/2004 13:35 EST) Anatomical Region Laterality Modality Other 01/15/2004 13:3 5 EST Impressions 07/10/2009 16:39 EDT IMPRESSION: BILATERAL BREASTS - CATEGORY 1 Negative, no evidence of malignancy. Normal interval follow-up is recommended in 12 months. OVERALL ASSESSMENT - NEGATIVE END OF IMPRESSION Narrative 07/10/2009 16:39 EDT ROUTINE FAM HX BR CA AUNT AGE 30'S[PCP ELVI BAI] Comparison is made to films from 08-14-2001 and 12-25-2002. Bilateral Breast Findings (CAD used to interpret routine digital projection): There are scattered fibroglandular densities. No significant masses, calcifications or other abnormalities are seen. Procedure Note Rena Guajardo MD - 07/10/2009 ROUTINE FAM HX BR CA AUNT AGE 30'S[PCP ELVI BAI] Comparison is made to films from 08-14-2001 and 12-25-2002. Bilateral Breast Findings (CAD used to interpret routine digital projection): There are scattered fibroglandular densities. No significant masses, calcifications or other abnormalities are seen. IMPRESSION IMPRESSION: BILATERAL BREASTS - CATEGORY 1 Negative, no evidence of malignancy. Normal interval follow-up is recommended in 12 months. OVERALL ASSESSMENT - NEGATIVE END OF IMPRESSION Elvi Bai NP IMG MAMMOGRAPHY ORD ERABLES documented in this encounter Visit Diagnoses Not on filedocumented in this encounter
--- OUTSIDE RECORDS SUMMARY | 2024-06-24 02:27 | XMS_ITS | Encounter Summary ---
Author Organization [facility] Address [address] [place] [address] Care Team Providers Care Heel Sander Rubber Name Role Phone Unavailable Primary Care Provider Unavailabl e Encounter Details Date Type Department Care Team (Late st Contact Info) Description 09/18/2000 15:58 EST Hospital Encounter [facility] - [place] conversion [address] [place] [address] Yonathan Pantoja MD [address] [facility], [address] [place] [address] Social History Tobacco Use Types [...]
--- OUTSIDE RECORDS SUMMARY | 2024-06-24 02:27 | XMS_ITS | Encounter Summary ---
Author Organization [facility] Address [address] [place] [address] Care Team Providers Care Dynamite Packing Machine Operator Name Role Phone Unavailable Primary Care Provider Unavailabl e Encounter Details Date Type Department Care Team (Late st Contact Info) Description 05/23/2005 12:28 EDT Hospital Encounter [facility] - Other [address] [place] [address] Yovana Callejas MD [address] [place] [address] [address] [place] [phone] Social History Tobacco Use Types Packs/Day [...]
--- OUTSIDE RECORDS SUMMARY | 2024-06-24 02:27 | XMS_ITS | Encounter Summary ---
Author Organization [facility] Address [address] [place] [address] Care Team Providers Care Supervisor Transferring And Boxing Name Role Phone Unavailable Primary Care Provider Unavailabl e Encounter Details Date Type Department Care Team (Late st Contact Info) Description 05/12/2004 10:52 EDT Hospital Encounter [facility] [place] conversion [address] [place] [address] MD [address] [place] [address] Social History Tobacco Use Types Packs/Day [...]
--- OUTSIDE RECORDS SUMMARY | 2024-06-24 02:27 | XMS_ITS | Encounter Summary ---
Author Organization [facility] Address [address] [place] [address] Care Team Providers Care Online Facilitator Name Role Phone Unavailable Primary Care Provider Unavailabl e Encounter Details Date Type Department Care Team (Late st Contact Info) Description 05/13/2004 9:45 EDT Hospital Encounter [facility] - Other [address] [place] [address] Yovana Callejas MD [address] [place] [address] [address] [place] [address] Social History Tobacco Use Types Packs/Day [...] Asthma 133/57(2020 14:39 EDT) No Emily Gibson, PATIENT SERVICES REP LDL < 130 Result Component Hyperlipidemia 143( 4 11:54 EDT) No Gibson, Emily, PATIENT SERVICES REP documented as of this encounter Procedures Procedure Name Priority Date/Time Associated Diagnosis Comments SED RATE Routine 05/13/2004 9:46 EDT COMPLETE BLOOD COUNT AND DIFFERENTIAL Routine 05/13/2004 9:46 EDT TSH Routine 05/13/2004 9:46 EDT documented in this encounter Results * TSH (05/13/2004 9:46 EDT) TSH 1.64 0.35 - 5.50 uIU/ml [facility] 05/13/2004 9:46 EDT 05/13/2004 10:16 EDT Yovana Callejas MD CHEMISTRY & BLOO D GAS ORDERABLES Performing Organization Address City/[facility] Co de Phone Number [facility] [address] [place] [address] * SED. RATE:BYRONREN (05/13/2004 9:46 EDT) Sed. Rate Westergren 11 0 - 20 mm/hr [facility] 05/13/2004 9:46 EDT 05/13/2004 10:16 EDT Yovana Callejas MD HEMATOLOGY & PF4 ORDERABLES Performing Organization Address City/[facility]/ZIP Co de Phone Number [facility] [address] [place] [address] * HEMAGRAM AND DIFFERENTIAL (05/13/2004 9:46 EDT) WBC 6.02 4.0 - 12.4 K/cmm [facility] RBC 4.33 3.86 - 5.04 M/cmm [facility] Hemoglobin 13.3 11.6 - 15.2 gm/dl [facility] HCT 38.8 34.9 - 44.4 % [facility] MCV 90 81 - 98 fl [facility] MCH 30.6 26.7 - 33.3 pg [facility] MCHC 34.1 32.1 - 35.9 gm/dl [facility] PLT 314 141 - 320 K/cmm [facility] RDW-CV 12.5 11.7 - 14.6 % [facility] % Neutrophils 65.3 45.5 - 79.7 % [facility] % Lymphocytes 23.6 15.0 - 46.8 % [facility] % Monocytes 8.8 1.8 - 12.0 % [facility] % Eosinophils 1.9 0.6 - 6.9 % [facility] % Basophils 0.4 0.2 - 1.4 % [facility] ABS Neutrophils 3.93 2.20 - 8.85 K/cmm [facility] ABS Lymphs 1.42 1.09 - 3.30 K/cmm [facility] ABS Monocytes 0.53 0.1 - 0.8 K/cmm [facility] ABS Eosinophils 0.11 0.03 - 0.61 K/cmm [facility] ABS Basophils 0.02 0.01 - 0.11 K/cmm [facility] Type of Diff: Automated [facility] 05/13/2004 9:46 EDT 05/13/2004 10:16 EDT Yovana Callejas MD PACKAGES & DNA P KERRI ORDERABLES [facility] [address] [place] [address] documented in this encounter Visit Diagnoses Not on filedocumented in this encounter Additional Health Concerns Infection Onset Date Last Indicated Resolved Time Rule-Out C. difficile 2021 04/16/20212020 13:40 EDT C. difficile 04/16/2021 04/16/2021 06/15/2021 22:1 5 EDT documented as of this encounter
--- OUTSIDE RECORDS SUMMARY | 2024-06-24 02:27 | XMS_ITS | Encounter Summary ---
Author Organization [facility] Address [address] [place] [address] Care Team Providers Care Ore Washer Name Role Phone Unavailable Primary Care Provider Unavailabl e Encounter Details Date Type Department Care Team (Late st Contact Info) Description 07/29/2005 16:22 EDT Hospital Encounter [facility] - Other [address] [place] [address] Remedios Mehta MD [address] [place] [phone] Social History Tobacco Use Types Packs/Day [...] Asthma 133/57(2020 14:39 EDT) No Gibson, Emily, INSTRUMENT LENS GRINDER APPRENTICE LDL < 130 Result Component Hyperlipidemia 143( 4 11:54 EDT) No Arthur, Emily, INSTRUMENT LENS GRINDER APPRENTICE documented as of this encounter Procedures Procedure Name Priority Date/Time Associated Diagnosis Comments HDL Routine 07/29/2005 16:07 EDT HEMOGLOBIN A1C Routine 07/29/2005 16:07 EDT CHOLESTEROL Routine 07/29/2005 16:07 EDT BASIC METABOLIC PANEL (BMP) Routine 07/29/2005 16:07 EDT documented in this encounter Results * HDL (07/29/2005 16:07 EDT) HDL 48 mg/dl [facility] Comment: Highly Desirable:>60 Desirable:35-60 High Risk:<35 07/29/2005 16:0 7 EDT 07/29/2005 19:11 EDT Remedios Mehta MD CHEMISTRY & BLOOD GAS ORDERABLES Performing Organization Address [facility] Co de Phone Number [facility] [address] [place] [address] * CHOLESTEROL (07/29/2005 16:07 EDT) Cholesterol 180 mg/dl [facility] Comment: Desirable:<200 Borderline:200-239 High Risk:>ga=611 07/29/2005 16:0 7 EDT 07/29/2005 19:11 EDT Remedios Mehta MD CHEMISTRY & BLOOD GAS ORDERABLES Performing Organization Address [facility] Co de Phone Number [facility] [address] [place] [address] * (ABNORMAL) BASIC METABOLIC PANEL (07/29/2005 16:07 EDT) Sodium 142 136 - 145 mEq/L [facility] Potassium 4.8 3.5 - 5.0 mEq/L [facility] Chloride 105 96 - 110 mEq/L [facility] CO2 31 24 - 32 mEq/L [facility] BUN 20 10 - 26 mg/dl [facility] Creatinine 1.1 0.7 - 1.5 mg/dl [facility] Calcium 10.0 8.5 - 10.5 mg/dl [facility] Calculated Calcium 10.6(H) 8.5 - 10.5 mg/dl [facility] Glucose, Serum 86 70 - 110 mg/dl [facility] Fasting? No [facility] 07/29/2005 16:0 7 EDT 07/29/2005 19:11 EDT Remedios Mehta MD CHEMISTRY & BLOOD GAS ORDERABLES Performing Organization Address [facility] de Phone Number [facility] [address] [place] [address] * HEMOGLOBIN A1C (07/29/2005 16:07 EDT) Hemoglobin A1C 5.2 % [facility] Comment: Reference Range: <6% Normal Range <7% Recommended goal by ADA guidelines 7-8% Suboptimal by ADA guidelines >8% Further action suggested by ADA guidelines 07/29/2005 16:0 7 EDT 07/29/2005 19:11 EDT Remedios Mehta MD CHEMISTRY & BLOOD GAS ORDERABLES Performing Organization Address [facility] Co de Phone Number [facility] [address] [place] [address] documented in this encounter Visit Diagnoses Not on filedocumented in this encounter Additional Health Concerns Infection Onset Date Last Indicated Resolved Time Rule-Out C. difficile 2021 04/16/20212020 13:40 EDT C. difficile 04/16/2021 04/16/2021 06/15/2021 22:1 5 EDT documented as of this encounter
--- OUTSIDE RECORDS SUMMARY | 2024-06-24 02:27 | XMS_ITS | Encounter Summary ---
Author Organization [facility] Address [address] [place] [address] Care Team Providers Care Gun Stocker Name Role Phone Unavailable Primary Care Provider Unavailabl e Encounter Details Date Type Department Care Team (Latest Contact Info) Description 01/20/2004 16:09 [facility] Hospital Encounter [facility] - Other [address] [place] [address] Avel Mondragon MD Douglass, Marjorie, NP Discharge Disposition: Auto Discharge Social History Tobacco [...]
--- OUTSIDE RECORDS SUMMARY | 2024-06-24 02:27 | XMS_ITS | Encounter Summary ---
Author Organization [facility] Address [address] [place] [address] Care Team Providers Care Polisher Dial Name Role Phone Remedios Mehta MD Primary Care Provider [phone] Encounter Details Date Type Department Care Team (Late st Contact Info) Description 03/18/2002 Results Only [facility] [place] conversion [address] [place] [address] Elvi Bai NP Social History Tobacco Use Types [...] Priority Date/Time Associated Diagnosis Comments CYTOPATHOLOGY Routine 03/18/2002 0:00 EDT documented in this encounter Results * CYTOPATHOLOGY (03/18/2002 0:00 EDT) Pathology Report: CYTOPATHOLOGY REPORT Reports generated via electronic interface contain original data; however they are lacking the format of the original report. Caution should be taken when reading/interpreti ng unformatted reports. Name: ? CHERELLE HUSAIN ? Accession #: ? [id number] : ? 1960 (Age: 41) ??F ?Collect Date: ? 03/18/2002 Location: ? [facility] ? Receive Date: ? 03/19/2002 Provider: ?ELVI BAI HOTEL AND DINING ROOM CASHIER Copy to: ? Specimen/Source: ?ThinPrep Pap Test, Cervix/Endocervix Last Menstrual Period: ? SPECIMEN ADEQUACY ? Satisfactory for Evaluation - transformation zone component present GENERAL CATEGORIZATION ? Other, see interpretation INTERPRETATION ? Endometrial cells present in a woman equal to or greater than age 40. Negative for Intraepithelial Lesion or Malignancy. ? COMMENT ? Benign appearing endometrial cells on Pap tests are usually a normal finding in women with regular menstrual cycles, especially if the Pap was collected during the first half of the menstrual cycle. ??There is data showing that endometrial cells on Pap tests may be associated with endometrial/uterin e abnormalities in post menopausal women or in premenopausal women with abnormal bleeding. ??There is limited data on the significance of benign endometrial cells in post menopausal women on HRT. ??Clinical correlation is recommended. Note: ?? The Pap test is not an accurate test for the screening of endometrial lesions and should not be used as a follow up in patients with clinical suspicion of endometrial pathology. ? Document reviewed and electronically signed by: ? DOMINIC Galicia(ASCP) ? Report Date: ??03/21/2002 14:14 End of Report [facility] 03/18/2002 03/19/2002 Elvi Bai NP PATHOLOGY ORDERABLE S [facility] [address] [place] [address] documented in this encounter Visit Diagnoses Not on filedocumented in this encounter Care Teams Polisher Dial Relationship Specialty Start Date End Date Remedios Mehta MD [address] [place] [phone] PCP - General 02/19/09 01/04/15 documented as of this encounter
--- OUTSIDE RECORDS SUMMARY | 2024-06-24 02:27 | XMS_ITS | Encounter Summary ---
Author Organization [facility] Address [address] [place] [address] Care Team Providers Care Executive Consultant Name Role Phone Keshawn Mehta MD Primary Care Provider [phone] Encounter Details Date Type Department Care Team (Late st Contact Info) Description 07/29/2005 Results Only [facility] [address] [address] Keshawn Mehta MD [address] [place] [phone] Social History Tobacco Use Types Packs/Day [...] Priority Date/Time Associated Diagnosis Comments CYTOPATHOLOGY Routine 07/29/2005 0:00 EDT documented in this encounter Results * CYTOPATHOLOGY (07/29/2005 0:00 EDT) Pathology Report: CYTOPATHOLOGY REPORT Reports generated via electronic interface contain original data; however they are lacking the format of the original report. Caution should be taken when reading/interpreti ng unformatted reports. Name: ? CHERELLE HUSAIN ? Accession #: ? [id number] : ? 1960 (Age: 45) ??F ?Collect Date: ? 07/29/2005 Location: ? [facility] ? Receive Date: ? 08/01/2005 Provider: ?KESHAWN MEJIA MD Copy to: ? Specimen/Source: ?ThinPrep Pap Test, Cervix/Endocervix, processed on Social Tables ThinPrep Imaging System, with manual evaluation Last Menstrual Period: ? 06/30/05 Other: ? HPVA - HPV testing requested if ASC-US on the current ThinPrep Pap test. ? SPECIMEN ADEQUACY ? Satisfactory for Evaluation - transformation zone component present GENERAL CATEGORIZATION ? Negative for Intraepithelial Lesion or Malignancy INTERPRETATION ? Fungal organisms present morphologically consistent with Val species. ? Document reviewed and electronically signed by: ? LALA Martinez(ASCP) ? Report Date: ??08/05/2005 07:30 End of Report [facility] 07/29/2005 08/01/2005 Keshawn Mehta MD PATHOLOGY ORDERAB LES [facility] [address] [place] [address] documented in this encounter Visit Diagnoses Not on filedocumented in this encounter Care Teams Executive Consultant Relationship Specialty Start Date End Date Keshawn Mehta MD [address] [place] [phone] PCP - General 02/19/09 01/04/15 documented as of this encounter
--- OUTSIDE RECORDS SUMMARY | 2024-06-24 02:27 | XMS_ITS | Encounter Summary ---
Author Organization [facility] Address [address] [place] [address] Care Team Providers Care Hiv/Aids Care Nurse Name Role Phone Unavailable Primary Care Provider Unavailabl e Encounter Details Date Type Department Care Team (Latest Contact Info) Description 09/13/2004 12:[address] [facility] Hospital Encounter [facility] [address] [place] [address] David Pedersen MD Discharge Disposition: Auto Discharge Social History [...]
--- OUTSIDE RECORDS SUMMARY | 2024-06-24 02:27 | XMS_ITS | Encounter Summary ---
Author Organization [facility] Address [address] [place] [address] Care Team Providers Care Secretary Name Role Phone Unavailable Primary Care Provider Unavailabl e Encounter Details Date Type Department Care Team (Late st Contact Info) Description 12/19/2002 16:57 EST Hospital Encounter [facility] [place] [facility] [address] [place] [address] MD [address] [facility] [place] [address] Yonathan Pantoja MD [address] [facility], [address] [place] [address] Social History Tobacco Use Types [...]
--- OUTSIDE RECORDS SUMMARY | 2024-06-24 02:27 | XMS_ITS | Encounter Summary ---
Author Organization [facility] Address [address] [place] [address] Care Team Providers Care Label Paster Name Role Phone Unavailable Primary Care Provider Unavailabl e Encounter Details Date Type Department Care Team (Late st Contact Info) Description 06/06/2005 9:55 EDT Hospital Encounter [address] [address] Yovana Callejas MD [address] [place] [address] [address] [place] [address] Social History Tobacco Use Types [...] Asthma 133/57(2020 14:39 EDT) No Emily Gibson, OIL SCOUT LDL < 130 Result Component Hyperlipidemia 143( 4 11:54 EDT) No Gibson, Emily, OIL SCOUT documented as of this encounter Procedures Procedure Name Priority Date/Time Associated Diagnosis Comments URINE CHEMICAL (DIP) & SEDIMENT (MICRO) WITHOUT REFLEX TO CULTURE Routine 06/06/2005 10:01 EDT documented in this encounter Results * (ABNORMAL) UA WITH MICROSCOPIC (06/06/2005 10:01 EDT) Color, UA Yellow [facility] Clarity, UA Hazy [facility] Glucose, UA Norm NORM [facility] Bilirubin, UA Neg NEG [facility] Ketones, UA Neg NEG [facility] Specific [place], Urine 1.025 1.005 - 1.02 [facility] Blood, UA Neg NEG [facility] pH, UA 7.0 5.0 - 9.0 [facility] Protein, UA Trace(A) NEG [facility] Urobilinogen, UA Norm NORM mg/dL [facility] Nitrite, UA Neg NEG [facility] Leuk Esterase Neg NEG [facility] WBC, UA 1 to 5 0 - 5 /HPF [facility] RBC, UA None seen 0 - 5 /HPF [facility] Squam Epithel, UA Few(A) NS /HPF [facility] Renal Epithel, UA None seen NS /HPF [facility] Bacteria, UA None seen NS /HPF [facility] Crystals, UA None seen /HPF [facility] Hyaline Casts, UA None seen /LPF [facility] UA Comment Microscopic results are unreliable on urines unrefrig >2hrs or refrig >8hrs. [facility] Mucus, UA Present [facility] 06/06/2005 10:0 1 EDT 06/06/2005 10:03 EDT Yovana Callejas MD URINALYSIS ORDER ONELIA [facility] [address] [place] [address] documented in this encounter Visit Diagnoses Not on filedocumented in this encounter Additional Health Concerns Infection Onset Date Last Indicated Resolved Time Rule-Out C. difficile 2021 04/16/20212020 13:40 EDT C. difficile 04/16/2021 04/16/2021 06/15/2021 22:1 5 EDT documented as of this encounter
--- OUTSIDE RECORDS SUMMARY | 2024-06-24 02:27 | XMS_ITS | Encounter Summary ---
Author Organization [facility] Address [address] [place] [address] Care Team Providers Care Supervisor Throwing Department Name Role Phone Unavailable Primary Care Provider Unavailabl e Encounter Details Date Type Department Care Team (Late st Contact Info) Description 10/12/2000 17:27 [facility] Hospital Encounter [facility] - Other [address] [place] [address] Rica Bai, HEIDE Unknown, Provider, Social History Tobacco Use Types [...] Associated Diagnosis Comments COMPLETE BLOOD COUNT Routine 10/12/2000 14:58 EST HEPATIC FUNCTION PANEL (ALB,ALK PHOS,ALT,AST,DBIL,T OT YELENA,TOT PROT) Routine 10/12/2000 14:58 EST documented in this encounter Results * LIVER FUNCTION TESTS (10/12/2000 14:58 EST) Albumin 3.9 3.0 - 5.5 g/dl [facility] Comment:Fasting Total Protein 7.2 6.0 - 8.5 g/dl [facility] Comment:Fasting Total Alkaline Phosphatase 77 38 - 126 U/L [facility] Comment:Fasting ALT 24 15 - 75 U/L [facility] Comment:Fasting AST 13 8 - 50 U/L [facility] Comment:Fasting Unconjugated Bilirubin 0.7 0.1 - 1.1 mg/dl [facility] Comment:Fasting Conjugated Bilirubin 0.0 0.0 - 0.3 mg/dl [facility] Comment:Fasting Bilirubin, Total 0.8 0.2 - 1.3 mg/dl [facility] Comment:Fasting 10/12/2000 14:5 8 EST 10/12/2000 14:58 EST Rica Bai NP CHEMISTRY & BLOOD G ORDERABLES [facility] [address] [place] [address] * (ABNORMAL) HEMAGRAM (10/12/2000 14:58 EST) WBC 6.74 4.0 - 12.4 K/cmm [facility] RBC 4.40 3.86 - 5.04 M/cmm [facility] Hemoglobin 13.7 11.6 - 15.2 gm/dl [facility] HCT 39.9 34.9 - 44.4 % [facility] MCV 91 81 - 98 fl [facility] MCH 31.1 26.7 - 33.3 pg [facility] MCHC 34.4 32.1 - 35.9 gm/dl [facility] PLT 349(H) 141 - 320 K/cmm [facility] RDW-CV 12.4 11.7 - 14.6 % [facility] 10/12/2000 14:5 8 EST 10/12/2000 14:58 EST Rica Bai NP HEMATOLOGY & PF4 OR DERABLES [facility] [address] [place] [address] documented in this encounter Visit Diagnoses Not on filedocumented in this encounter Additional Health Concerns Infection Onset Date Last Indicated Resolved Time Rule-Out C. difficile 2021 04/16/20212020 13:40 EDT C. difficile 04/16/2021 04/16/2021 06/15/2021 22:1 5 EDT documented as of this encounter
--- OUTSIDE RECORDS SUMMARY | 2024-06-24 02:27 | XMS_ITS | Encounter Summary ---
Author Organization [facility] Address [address] [place] [address] Care Team Providers Care Sales Order Clerk Name Role Phone Unavailable Primary Care Provider Unavailabl e Encounter Details Date Type Department Care Team (Latest Contact Info) Description 12/25/2002 11:19 EST - 12/25/2002 11:59 EST Hospital Encounter [facility] [place] [facility] [address] [place] [address] Harsha Chong MD Discharge Disposition: Auto Discharge [...] Name Priority Date/Time Associated Diagnosis Comments MA MAMMOGRAPHIC SCREEN YELENA Routine 12/25/2002 11:53 EST documented in this encounter Results * MA MAMMOGRAPHIC SCREEN YELENA (12/25/2002 11:53 EST) Anatomical Region Laterality Modality Other 12/25/2002 11:5 3 EST Impressions 07/14/2009 0:47 EDT IMPRESSION: BILATERAL BREASTS - Category 1 Negative, no evidence of malignancy. Normal interval follow-up is recommended in 12 months. OVERALL ASSESSMENT - NEGATIVE END OF IMPRESSION Narrative 07/14/2009 0:47 EDT ROUTINE - PREV 08/14/01 - PCP ELVI BAI Comparison is made to films from 12-12-1997 (bilateral). Bilateral Breast Findings: There are scattered fibroglandular densities. No significant masses, calcifications or other abnormalities are seen. Procedure Note Nathalia West MD / Shannon Vargas MD - 07/14/2009 ROUTINE - PREV 08/14/01 - PCP ELVI BAI Comparison is made to films from 12-12-1997 (bilateral). Bilateral Breast Findings: There are scattered fibroglandular densities. No significant masses, calcifications or other abnormalities are seen. IMPRESSION IMPRESSION: BILATERAL BREASTS - Category 1 Negative, no evidence of malignancy. Normal interval follow-up is recommended in 12 months. OVERALL ASSESSMENT - NEGATIVE END OF IMPRESSION Elvi Bai GROUND WATER PUMP INSTALLER IMG MAMMOGRAPHY ORD ERABLES documented in this encounter Visit Diagnoses Not on filedocumented in this encounter
--- OUTSIDE RECORDS SUMMARY | 2024-06-24 02:27 | XMS_ITS | Encounter Summary ---
Author Organization [facility] Address [address] [place] [address] Care Team Providers Care Director Part Name Role Phone Remedios Mehta MD Primary Care Provider [phone] Encounter Details Date Type Department Care Team (Late st Contact Info) Description 04/07/2005 [facility] Converted Visit ([facility]) [facility] [place] conversion [address] [place] [address] Yovana Callejas MD [address] [place] [address] [phone] Social History Tobacco Use Types Packs/Day Years Used Date Smoking Tobacco: Never Assessed Sex and Gender Information Value Date Recorded Sex Assigned at Not on file Gender Identity Female 2021 11:19 EDT Sexual Orientation Not on file documented as of this encounter Progress Notes * Yovana Callejas MD - 12/30/2009 0953 EST DIVISION OF RHEUMATOLOGY PROGRESS/FOLLOWUP NOTE - 04/07/2005 CHIEF COMPLAINT: Cherelle is here in followup of arthritis and fibromyalgia. She is having pain in the following areas across her MCP's and in her DIP's and some burning and dysesthesias in her left handreminiscent of carpal tunnel syndrome. Also some pain across her ankles after exercise with some catching sensation over the Achilles tendon. Morning stiffness is present. Less than an hour. Past medical history includes anxiety, irritable bowel syndrome and asthma. Medications: Plaquenil 200 mg twice a day, Zelnorm, Advair, Accolate, calcium, Albuterol, Protonix 20 mg twice a day and Trazodone. On review of Systems: Constitutional: Feels fatigue. Respiratory: No recent asthma flares. GI: No current stomach upset. Skin: Had bruising which responded to discontinuation of Indocin. Neurologic: See above. HEENT: No headaches or other symptoms. Psych: Under significant stress as her marriage isunstable currently. She has filed for divorce. OBJECTIVE: On examination she is a pleasant woman. Height 60 ?? inches, weight 199, BP 110/64, pulse 76, respiratory rate is 14. Pain is in her joints. Skin: She has deeply tanned skin on the shoulders. No evidence of erythema. HEENT: No ocular inflammation or oral ulcers. Her chest is clear to auscultation. Cardiac exam: Regular rate and rhythm. Symmetric radial pulses. Abdomen is soft and nontender. Gait is within normal limits. 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 Positive Tinel's on the left. No atrophy over the thenar eminence. Ring sign is normal bilaterally. Shoulder abduction is 5/5. Hip flexion 5/5. Gait within normal limits. Joint examination: Tenderness to palpation over the DIP's and PIP's and MCP's of both hands with no synovitis. Wrists, elbows and shoulders unremarkable. Hip range ofmotion preserved with tenderness over the greater trochanteric bursae. Knees: There is crepitance under the right knee cap. Ankles: Tenderness over the Achilles tendon with some tendinous nodules. IMPRESSION: 1. Achilles tendon nodules. 2. Right chondromalacia patellae. 3. Myofascial pain syndrome. 4. Psychosocial stressors. 5. Inflammatory arthritis, stable. PLAN: 1. Reviewed that she has mild carpal tunnel syndrome on examination today. If this gets worse over time, we might inject her left carpal tunnel. 2. Reviewed symptoms of chondromalacia patellae. Recommended weight loss and exercise. 3. Suggested she wear shoes in the house at all times to reduce the pain across her feet. 4. Recommended trial of nabumetone 500 mg twice a day. Side effects of medication reviewed at length. 5. Patient is overdue for eye examination while on Plaquenil. 6. At next evaluation will obtain CBC, creatinine and LFT's along with a sed. rate. 7. Followup appointment in 3 months' time. Signed by Yovana Callejas MD 04/20/2005 09:13 Myron Callejas, Jens Callejas MD Yovana Callejas MD - Yovana Callejas MD A - JW Job ID: Document ID: [id number] cc: MD Harsha Garcia MD documented in this encounter Plan of Treatment Not on file documented as of this encounter Visit Diagnoses Not on filedocumented in this encounter Care Teams Director Part Relationship Specialty Start Date End Date Remedios Mehta MD [address] [place] [phone] PCP - General 02/19/09 01/04/15 documented as of this encounter
--- OUTSIDE RECORDS SUMMARY | 2024-06-24 02:27 | XMS_ITS | Encounter Summary ---
Author Organization [facility] Address [address] [place] [address] Care Team Providers Care Excelsior Machine Feeder Name Role Phone Unavailable Primary Care Provider Unavailabl e Encounter Details Date Type Department Care Team (Latest Contact Info) Description 08/14/2001 9:06 EDT - 08/14/2001 11:59 EDT Hospital Encounter [facility] conversion [address] [place] [address] Harsha Chong MD Discharge Disposition: Auto Discharge [...] Diagnosis Comments MA MAMMOGRAPHIC SCREEN YELENA Routine 08/14/2001 9:29 EDT documented in this encounter Results * MA MAMMOGRAPHIC SCREEN YELENA (08/14/2001 9:29 EDT) Anatomical Region Laterality Modality Other 08/14/2001 9:29 EDT Impressions 09/09/2009 4:24 EST IMPRESSION: BILATERAL BREASTS - Category 1 Negative, no evidence of malignancy. Normal interval follow-up is recommended in 12 months. OVERALL ASSESSMENT - NEGATIVE END OF IMPRESSION Narrative 09/09/2009 4:24 EST ROUTINE [PCP JUANCARLOS CARDONA] Comparison is made to films from 12-12-1997 (bilateral). Bilateral Breast Findings: There are scattered fibroglandular densities. No masses, significant calcifications or other abnormalities are seen. Procedure Note Rock Stock, PT / Amara Zaldivar MD - 09/09/2009 ROUTINE [PCP JUANCARLOS CARDONA] Comparison is made to films from 12-12-1997 (bilateral). Bilateral Breast Findings: There are scattered fibroglandular densities. No masses, significant calcifications or other abnormalities are seen. IMPRESSION IMPRESSION: BILATERAL BREASTS - Category 1 Negative, no evidence of malignancy. Normal interval follow-up is recommended in 12 months. OVERALL ASSESSMENT - NEGATIVE END OF IMPRESSION Harsha Chong MD IMG MAMMOGRAPHY ARNOLDO TREJO documented in this encounter Visit Diagnoses Not on filedocumented in this encounter
--- OUTSIDE RECORDS SUMMARY | 2024-06-24 02:27 | XMS_ITS | Encounter Summary ---
Author Organization [facility] Address [address] [place] [address] Care Team Providers Care Application Release Manager Name Role Phone Unavailable Primary Care Provider Unavailabl e Encounter Details Date Type Department Care Team (Late st Contact Info) Description 07/05/2002 8:40 EDT Hospital Encounter [facility] - Other [address] [place] [address] MD [address] [place] [id number] Unknown, MD Rajendra Social History Tobacco Use Types Packs/Day Years [...] Priority Date/Time Associated Diagnosis Comments THEOPHYLLINE Routine 07/05/2002 9:45 EDT documented in this encounter Results * THEOPHYLLINE (07/05/2002 9:45 EDT) Theophylline 10.4 10.0 - 20.0 ug/ml [facility] 07/05/2002 9:45 EDT 07/05/2002 15:[address] MD CHEMISTRY & BLOOD GA S ORDERABLES Performing Organization Address City/State/[facility] Co de Phone Number [facility] [address] [place] [address] documented in this encounter Visit Diagnoses Not on filedocumented in this encounter Additional Health Concerns Infection Onset Date Last Indicated Resolved Time Rule-Out C. difficile 2021 04/16/20212020 13:40 EDT C. difficile 04/16/2021 04/16/2021 06/15/2021 22:1 5 EDT documented as of this encounter
--- OUTSIDE RECORDS SUMMARY | 2024-06-24 02:27 | XMS_ITS | Encounter Summary ---
Author Organization [facility] Address [address] [place] [address] Care Team Providers Care Edi Programmer Name Role Phone Unavailable Primary Care Provider Unavailabl e Encounter Details Date Type Department Care Team (Late st Contact Info) Description 07/22/2000 19:49 EDT Hospital Encounter [facility] [address] [place] [address] Madhu Mosley MD [address] [place] [address] Social History Tobacco Use Types Packs/Day Years [...]
--- OUTSIDE RECORDS SUMMARY | 2024-06-24 02:27 | XMS_ITS | Encounter Summary ---
Author Organization [facility] Address [address] [place] [address] Care Team Providers Care Senior Materials Scientist Name Role Phone Remedios Mehta MD Primary Care Provider [phone] Encounter Details Date Type Department Care Team (Late st Contact Info) Description 12/31/2004 Before PRISM Converted Visit (Maple) [facility] - Maple conversion [address] [place] [address] MD [address] [place] [address] Social History Tobacco Use Types Packs/Day Years Used Date Smoking Tobacco: Never Assessed Sex and Gender Information Value Date Recorded Sex Assigned at Not on file Gender Identity Female 2021 11:19 EDT Sexual Orientation Not on file documented as of this encounter Progress Notes * Senthil, Conv Janitor Helper - 06/08/2011 1118 EDT PULMONARY MEDICINE PROGRESS NOTE DATE OF SERVICE: 12/24/2004 PROBLEM: Asthma and vocal cord dysfunction. SUBJECTIVE: As far as her breathing goes, the patient reports that she has been doing fairlywell. She has been using the Advair with no apparent thrush. However, she has had a couple of bouts of bronchitis where she has coughed up purulent green sputum. She used a 3-day course of Zithromax. The second bout she used more frequent nebulizers and that seemed to help her clear her sputum. She did have some shortness of breath when that was happening. She has also complaining that she is having somearthritis pain and she is due to see her digester relatively soon. She is also complaining ofleft ear pain. OBJECTIVE: Weight 205. Temperature 36.0, blood pressure 110/54, pulse 73, respirations 24, saturation 98% on room air. Left ear canal shows redness and tenderness on the external canal. Lungs are clear to auscultation. Oropharynx has no evidence of thrush. ASSESSMENT: Asthma and vocal cord dysfunction, relatively stable, worsened recently with bronchitisbut not drastically. She has been doing her speech maneuvers which may also be part of the reason why she is doing fairly well. She also appears today to have an otitis externa. I discussed with her the potential of using another different type of antibiotic this time. She feels that right now purulent sputum is very mild and she would preferto try to use frequent bronchodilators and the literature supports that does work fairly well. PLAN: 1. Will treat the otitis externa with Cortisporin drops for 10 days. 2. Continue on the Advair and if her productive cough gets worse, she can call us or her primary care to get a different antibiotic for perhaps a prolonged course given the recurrence of these symptoms. 3. Follow up in six months with spirometry. This document has been electronically signed by JUAN ANTONIO LANE MD on 12/31/2004 17:20:00. -JUAN ANTONIO LANE MD - [facility] emergency department Voice ID: [id number] Document ID: [id number] CC: DEBBIE MARIE MD, REFERRING PHYSICIAN documented in this encounter Plan of Treatment Not on file documented as of this encounter Visit Diagnoses Not on filedocumented in this encounter Care Teams Senior Materials Scientist Relationship Specialty Start Date End Date Remedios Mehta MD [address] [place] [phone] PCP - General 02/19/09 01/04/15 documented as of this encounter
--- OUTSIDE RECORDS SUMMARY | 2024-06-24 02:28 | XMS_ITS | Continuity of Care Document ---
Author Organization [facility] Address [address] [place] [address] Phone Care Team Providers Care Radio Time Salesperson Name Role Phone Mikebenji ROSA, Geoffrey Unavailable Unavailable Allergies, Adverse Reactions, Alerts Substance Reaction Status Criticality chocolate flavor rash Active No Informat ion egg rash Active No Information PENICILLIN rash Active No Information SULFUR rash Active No Information codeine rash Active No Information aspirin Breathing trouble(moderate) Active No Information Medications Medication Instructions Dosage Effective Dates (start - stop) Status Comments JANUMET (unknown strength) take 1 tablet by oral route 2 times every day with meals Not Available - Active OMEPRAZOLE (unknown strength) take 1 capsule by oral route every day before a meal Not Available - Active LOVASTATIN (unknown strength) take 1 tablet by oral route every day with the evening meal Not Available - Active LYRICA (unknown strength) take 1 capsule by oral route 3 times every day Not Available - Active CYCLOBENZAPRINE HCL (unknown strength) take 1 tablet by oral route 2 times every day Not Available - Active TRAZODONE HCL (unknown strength) take 1 tablet by oral route 2 times every day after meals Not Available - Active metoprolol tartrate 25 mg tablet take 1 tablet by oral route 2 times every day 25 MG - Active DULOXETINE HCL (unknown strength) take 1 capsule by oral route every day Not Available - Active METFORMIN HCL (unknown strength) take 1 tablet by oral route 2 times every day with morning and evening meals Not Available - Active FLUTICASONE PROPIONATE (unknown strength) spray 1 spray by intranasal route every day in each nostril Not Available - Active Symbicort 80 mcg-4.5 mcg/actuation HFA aerosol inhaler inhale 2 puff by inhalation route 2 times every day in the morning and evening 2.00 puff - Active ALBUTEROL SULFATE (unknown strength) take 1 tablet by oral route 3 times every day Not Available - Active COMPLETE 50 PLUS (unknown strength) Not Available - Active Procedures Procedure Date Fundus Photos W/ I&R OFFICE/OUTPATIENT VISIT EST OFFICE/OUTPATIENT VISIT EST Fundus Photos W/ I&R <content ID='ProcedureDescri ption_4' xmlns='urn:[email or web address]:[email or web address]'>Visual Field Exam W/i&r; Exten</content> Offic/outpt E&m Estab Low-mod 0 Offic/outpt E&m Estab Low-mod 0 <content ID='ProcedureDescri ption_7' xmlns='urn:[email or web address]:[email or web address]'>Visual Field Exam W/i&r; Exten</content> Refraction <content ID='ProcedureDescri ption_9' xmlns='urn:[email or web address]:[email or web address]'>Visual Field Exam W/i&r; Exten</content> Offic/outpt E&m Estab Low-mod 9 Offic/outpt E&m Estab Low-mod 9 <content ID='ProcedureDescri ption_12' xmlns='urn:[email or web address]:[email or web address]'>Visual Field Exam W/i&r; Exten</content> Refraction YAG Cap Discission 2nd Cataract; Laser A Offic/outpt E&m Estab Mod-oh 2 19 Offic/outpt E&m Estab Mod-oh 2 19 YAG Cap Discission 2nd Cataract; Laser A Refraction CPTR OPHTH DX IMG POST [facility] Offic/outpt E&m Estab Mod-oh 2 19 Offic/outpt E&m Estab Mod-oh 2 19 CPTR OPHTH DX IMG POST SEGMT Refraction Pt Enc Was Documented Using CCHIT Cert E MR Post Op Follow Up Visit Post Op Follow Up Visit Extracapsular Cataract Remov I 16 Post Op Follow Up Visit Post Op Follow Up Visit Extracapsular Cataract Remov I 16 IOL Master/Ophth.Biometry Internal Eye Photography Verion Measurements Computerized Corneal Kirk-Unilateral Or Bilateral Computerized Corneal Kirk-Unilateral Or Bilateral CPTR OPHTH DX IMG POST SEGVT Ophth Serv: Med Exam; Comp New 16 Ophth Serv: Med Exam; Comp New 16 IOL MASTER/Ophth/biometry IOL MASTER/Ophth/biometry IOL MASTER/Ophth/biometry CPTR OPHTH DX IMG POST SEGVT Computerized Corneal Kirk-Unilateral Or Bilateral Internal Eye Photography Verion Measurements Results Test Name Date and Time Measure Units Reference Range Abnormal Flag Status Comments Panel Description: Fundus photography of eye Fi nal Interpretation OU: .45/.45 no pallor, no edema, trace drusen, no heme Final Advance Directives Directive Yes / No Effective Date File Name No Information Encounters Encounter Description Practice Location Reason(s) For Visit Diagnoses Date Provider Providers Copied on Encounter OFFICE/OUTPA TIENT VISIT EST [facility] [place], [address] [facility] [place], [id number], [place] [phone] [facility] Diabetic eye exam (chief complaint) Type 2 diabetes mellitus without complication sBilateral vitreous detachment of eyesDrusen (degenerativ e) of macula, bilateralVis ual field defect 0 [place] Geoffrey. [address] [facility] fritz Burroughs, [place], [place], [id number], . tel:[phone] Referring Provider: Michael Palacio, [address] [place], [address]. tel:[phone] Offic/outpt E&m Estab Low-mod [facility], [address] [place] [address], [id number], [place] tel:[phone] [facility] [address] Follow Up of Visual Field Defect (chief complaint) Visual field defectDry eye syndrome of bilateral lacrimal glands 0 Mariana Hale. [address], [place], [place], [id number], [place]. tel:[phone] Referring Provider: Michael Palacio, [address] [place] [address], [address]. tel:[phone] Offic/outpt E&m Estab Low-mod [facility], [address] [place] [address], [id number], [place] tel:[phone] [facility] [address] Follow Up of Visual Field Defect (chief complaint) Visual field defectOther secondary cataract, bilateralPre sbyopia 9 Mariana Hale[address], [place], [place], [id number], [place]. tel:[phone] Referring Provider: Geoffrey Peña, [address], [place], [address]. tel:[phone] Offic/outpt E&m Estab Mod-hi 2 [facility] [place], [address] [place] [address], [id number], [place] tel:[phone] [facility] decreased vision (chief complaint) Other secondary cataract, bilateral [address] David Sloan[address], [place], [place], [id number], [place]. tel:[phone] Referring Provider: Geoffrey Peña, [address], [place], [address]. tel:[phone] Offic/outpt E&m Estab Mod-hi 2 [facility], [address] [place] [address] [employer] [place], [place], [id number], tel:[phone] [facility] [address] floaters (chief complaint) Bilateral vitreous detachment of eyesOther secondary cataract, bilateralHea dachePresbyo piaVisual field defect 9 [place] Hale. [address] [place] [address] fritz Burroughs, [place], [place], [id number], [place]. tel:[phone] Referring Provider: Michael Palacio, [address] [place] [address], [id number]. tel:[phone] [facility], [address] [place] [address] [employer] [place], [place], [id number], tel:[phone] [facility] Combined forms of age-related cataract, right eyePresence of intraocular lens 6 David Sloan. [address] [place] [address] [place], [id number], [place]. tel:[phone] Referring Provider: Michael Palacio, [address] [place] [address], [address]. tel:[phone] [facility], [address] [place] [address] [employer] [place], [place], [id number], tel:[phone] [facility] No Information 6 David Sloan. [address] [place] [address] [place], [id number], [place]. tel:[phone] Referring Provider: Michael Palacio, [address] [place] [address], [id number]. tel:[phone] [facility], [address] [place] [address] [employer] [place], [id number], [place] tel:[phone] [facility] Presence of intraocular lensCombined forms of age-related cataract, left eye Jul-1 5-201 6 David Sloan. [address], [place], [place], [id number], . tel:[phone] Referring Provider: Michael Palacio, [address] [place] [address], [id number]. tel:[phone] [facility], [address] [place], [place], [id number], [phone] [facility] No Information 4201 6 David Sloan. [address], [place], [place], [id number], [place]. tel:[phone] Referring Provider: Michael Palacio, [address] [place] [address], [address]. 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 [address], [place], [place], [id number], [place]. tel:[phone] Referring Provider: Michael Palacio, [address] [place] [address], [id number]. tel:[phone] Family History Family Member Type Diagnosis Age At Onset Father Problem (finding) blindness Father Problem (finding) hypertension Mother Problem (finding) diabetes mellitus type 2 Father Problem (finding) Kidnesy disease/stone Mother Problem (finding) Heart disease Father Problem (finding) Arthritis Mother Problem (finding) glaucoma Father Problem (finding) diabetes mellitus type 2 Mother Problem (finding) Arthritis Father Problem (finding) Cancer, unknown Mother Problem (finding) Fibromyalgia Payers Payer name Insurance type Covered republican ID Authoriza tion(s) [employer] Gold Choice 16 [id number] [facility] [id number] Social History Type Description Quantity Date Captured Comments Alcohol Use Details Caffeine Use Details Tobacco Use Status Current non-smoker Aug-25-20 20 Smoking Status Never smoker Sex Female Chief Complaint And Reason For Visit From encounter dated '06/23/2020 10:10'. Diabetic eye exam (chief complaint). Description: The 60 year old female presents as a Type II Diabetic and is here for a dilated eye exam in the right eye and left eye. Patient notes she has a blurry spot in her left eye in the upper temporal corner. Patient notes her BS was 98 this morning and has been stable. Patient notes she has had a bump come up on the inner corner of her left eye. Patientnotes id does not hurt at all. Reason For Referral Reason For Referral No Information Plan Of Treatment Date Type Action Status Goal Tobacco cessation counseling completed Goal Tobacco cessation counseling completed Goal Tobacco cessation counseling completed History Of Present Illness Encounter Date Complaint History Of Prese nt Illness Diabetic eye exam The 60 year ol d female presents as a Type II Diabetic and is here for a dilated eye exam in the right eye and left eye. Patient notes she has a blurry spot in her left eye in the upper temporal corner. Patient notes her BS was 98 this morning and has been stable. Patient notes she has had a bump come up on the inner corner of her left eye. Patient notes id does not hurt at all. Follow Up of Visual Field Defect The 59 year old female presents for evaluation of Follow Up of Visual Field Defect in the right eye. It occurs daily. Pt reports that she's not noticed any changes in Va, does report blurred Va that comes and goes. Pt does c/o thinking tear duct are swollen and irritated. Reports excessive tearing OU. Follow Up of Visual Field Defect The 59 year old female presents for evaluation of Follow Up of Visual Field Defect in the right eye and left eye. It occurs daily. Pt feels that Va has increased since she had laser done OU. C/O Ou itching at times, which she's using Ats for. decreased vision The 59 year old female presents for evaluation of decreased vision in the right eye and left eye. It started about 6 month(s) ago. It affects both near and far vision. The symptom is constant. The condition is worsening. In addition, the condition is associated with driving. She also reports floaters OU that are causing headaches. floaters The 59 year old female presents for dilated exam with Dr Peña due to the flashes and floaters that she has been having for several months. patient states she has been seen by [facility] earlier this year and told them about the floaters the told her she needed to see her eye doctor here and then was given a run around between the PCP and her person at [facility]. Patient states that she has had the floaters in the left eye mostly but here recently she is noticing them with flashes in the right eye as well. Patient states she also has headaches on the left side of the head, her left eye feels as if popping out sometimes, tenderness to touch and when brushing her hair. Unable to determine if jaw pain due to patient history of grinding teeth. Pt states she is suppose to wear glasses but unable to afford them at this time. Note to [facility] from [facility], on CVF OS pt stated that I was missing the right cheek and edge of my face for most of the testing and then came in focus. Blurry Vision The 56 year old female presents for evaluation of Blurry Vision in the left > right. It started about 5 month(s) ago. It occurs with no pattern. It affects both near and far vision. Patient here today for a cataract evaluation sent from Dr. Palacio. Patient states that she loves doing crafts and can't do them anymore due to her vision. Patient states she does not do any night time driving. Patient states one thing that she misses is vibrant colors. Patient has a history of DM last BS last night was 114 and A1C was 6. Functional Status Date Functional Assessmen t No Information Instructions Date Instruction Additional Infor cara RTC: 6 month DFE + VF 30-2 c EMK Related to Visual field defect Impression/Plan Related to Type 2 diabetes mellitus without complications Impression/Plan Related to Bilat eral vitreous detachment of eyes Impression/Plan Related to Florence rodriguez (degenerative) of macula, bilateral Impression/Plan Related to Visua l field defect RTC 6 month DFE + Fundus Photos c EMK Related to Dry eye syndrome of bilateral lacrimal glands RTC Related to Visua l field defect Impression/Plan Related to Visua l field defect Impression/Plan Related to Dry e ye syndrome of bilateral lacrimal glands Related to Visua l field defect Impression/Plan Related to Visua l field defect Impression/Plan Related to Other secondary cataract, bilateral Impression/Plan Related to Presb yopia Impression/Plan Related to Other secondary cataract, bilateral RTC Related to Bilat eral vitreous detachment of eyes Impression/Plan Related to Other secondary cataract, bilateral Impression/Plan Related to Bilat eral vitreous detachment of eyes Impression/Plan Related to Presb yopia Impression/Plan Related to Heada belen Impression/Plan Related to Visua l field defect - RTC: 1-[address] Mckeon on. Related to Combined forms of age-related cataract, right eye - Pred Forte QID for 1 week, TID for 1 week, BID for 1 week, QD for 1 week.Ciprofloxacin QID for 1 weekKetorolac QID for 2 weeks. Related to Combined forms of age-related cataract, right eye - Continue gtts Pred Forte QID OS x 1 wk then TID OS x 1 wk then BID OS x 1 wk. Cipro QID OS x 1 wk and ketorolac QID OS x 2 wks. Related to Presence of intraocular lens - Jr powell with Dr. Palacio x 1wk Related to Presence of intraocular lens - Continue gtts Pred Forte QID OS x 1 wk then TID OS x 1 wk then BID OS x 1 wk. Cipro QID OS x 1 wk and ketorolac QID OS x 2 wks. Related to Presence of intraocular lens - Jr powell with Dr. Palacio x 1wk Related to Presence of intraocular lens RTC next avail CE OS then OD standard vs multifocal (+/- lensx) c Dr. 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 Meredith Related to Combined forms of age-related cataract, bilateral Impression/Plan - Di scussed diagnosis in detail with patient. Advised patient of condition. Discussed risks and benefits and patient understands. Discussed treatment options with patient. Educational materials provided:Cataract extraction/lens. Dr. meredith advised patient that cataract surgery is a highly sucessful, after cataracts are removed they will not come back, and lens inplant lasts a life time. Dr. Meredith advised patient of lens options of standard lens which will allow her to wear bifocals after sx. Or a multifocal lens, would give her a different range of vision and would beable to do majority of close work without glasses, but possibly may need readers for very small detailed tasks or long periods of reading. Dr. meredith also discussed surgery options such as standard cataract surgery, or laser assisted surgery. Patient understands options. Elects to have cataract surgery. IOL, Verion, OCT, Pentacam and Endo Performed OU today. See interp for details. Dr. Meredith recommends patient get a sample of prolensa and trying it out for the next few days to see if she has a reaction to it, due to hx of breathing problems, and if patient does not have any trobles OK to use for surgery, if patient does have trouble, she will call the office to get drop shanged. RTC next avail CE OS then OD standard vs multifocal (+/- lensx) c Dr. Meredith Related to Combined forms of age-related cataract, bilateral Assessments Type Assessment Date assessment Type 2 diabetes mellitus without complications impression Type 2 diabetes mellitus without complications: E11.9 assessment Bilateral vitreous detachment of eyes impression Bilateral vitreous detachment of eyes: H43.813 assessment Drusen (degenerative) of macula, bilateral impression Drusen (degenerative) of macula, bilateral: H35.363 assessment Visual field defect impression Visual field defect: H53.40 Patient Care Teams Name Effective Dates (start - stop) Status Members No Information
--- OUTSIDE RECORDS SUMMARY | 2024-06-24 02:28 | XMS_ITS | Encounter Summary ---
Author Organization [facility] Address [address] [place] [address] Care Team Providers Care Campground Attendant Name Role Phone Unavailable Primary Care Provider Unavailabl e Encounter Details Date Type Department Care Team (Latest Contact Info) Description 09/03/1999 18:44 EST Hospital Encounter [facility] Emergency Department - [facility] [address] [place] [address] Emergency, Default, MD Discharge Disposition: Home or [...]
--- OUTSIDE RECORDS SUMMARY | 2024-06-24 02:28 | XMS_ITS | Encounter Summary ---
Author Organization [facility] Address [address] [place] [address] Care Team Providers Care Fisher Gill Net Name Role Phone Unavailable Primary Care Provider Unavailabl e Encounter Details Date Type Department Care Team (Late st Contact Info) Description 04/10/2000 13:50 EDT Hospital Encounter [address] [address] Christie Farrell MD [address] [facility] [address] [place] [id number] Discharge Disposition: Auto Discharge Social History Tobacco [...] Date/Time Associated Diagnosis Comments RAD US BREAST UNILATERAL OR BILATERAL Routine 04/10/2000 14:14 EDT documented in this encounter Results * RAD US BREAST UNILATERAL OR BILATERAL (04/10/2000 14:14 EDT) Anatomical Region Laterality Modality Other 04/10/2000 14:1 4 EDT Impressions 09/08/2009 14:55 EST IMPRESSION: RIGHT BREAST - CATEGORY 1 Negative ultrasound. Normal interval follow-up mammogram is recommended in 12 months. Results and recommendations for follow-up were discussed with the patient by the radiologist at the time of the exam. OVERALL ASSESSMENT - NEGATIVE END OF IMPRESSION Narrative 09/08/2009 14:55 EST RT AXILLA U/S, TENDER MASS R/O EVALUATE MASS Comparison is made to films from 12-24-1997 and 12-12-1997. Diagnostic ultrasound of the axillary area of the right breast (tender nodularity) was accomplished. Radial, sagittal and transverse scanning was performed. Ultrasound of the area of palpable tenderness in the right axillary area (no defineable lump palpated) demonstrates no sonographic abnormality. This same area was evaluated 2 years ago and was negative at that time as well. Procedure Note Barney Devries MD - 09/08/2009 RT AXILLA U/S, TENDER MASS R/O EVALUATE MASS Comparison is made to films from 12-24-1997 and 12-12-1997. Diagnostic ultrasound of the axillary area of the right breast (tender nodularity) was accomplished. Radial, sagittal and transverse scanning was performed. Ultrasound of the area of palpable tenderness in the right axillary area (no defineable lump palpated) demonstrates no sonographic abnormality. This same area was evaluated 2 years ago and was negative at that time as well. IMPRESSION IMPRESSION: RIGHT BREAST - CATEGORY 1 Negative ultrasound. Normal interval follow-up mammogram is recommended in 12 months. Results and recommendations for follow-up were discussed with the patient by the radiologist at the time of the exam. OVERALL ASSESSMENT - NEGATIVE END OF IMPRESSION Heladio Dash MD IMG US ORDERA BLES documented in this encounter Visit Diagnoses Not on filedocumented in this encounter
--- OUTSIDE RECORDS SUMMARY | 2024-06-24 02:28 | XMS_ITS | Continuity of Care Document ---
Author Organization [facility], [facility]. Address [address] [place] [address] Phone Care Team Providers Care Income Tax Preparer Name Role Phone Eulalia JARVIS, Christiano Unavailable Unavailable Allergies, Adverse Reactions, Alerts Substance Reaction Status Criticality wheat Active No Information soy Active No Information Sulfa (Sulfonamide Antibiotics) Active No Information CODEINE HCL Active No Information PENICILLIN Active No Information aspirin Active No Information Medications Medication Instructions Dosage Effective Dates (start - stop) Status Comments CYMBALTA (unknown strength) take 1 capsule by oral route 2 times every day Not Available - Active METFORMIN HCL (unknown strength) take 1 tablet by oral route 2 times every day with morning and evening meals Not Available - Active TRAZODONE HCL (unknown strength) take 1 tablet by oral route 2 times every day with food Not Available - Active Plavix 75 mg tablet take 1 tablet by oral route every day 75 MG - Active Procedures Procedure Date OPHTHALMOLOGICAL SERVICE;COMPREHENSIVE, NEW PATIENT SCODI, Optic Nerve VISUAL FIELD EXAMINATION EXTENDED Advance Directives Directive Yes / No Effective Date File Name No Information Encounters Encounter Description Practice Location Reason(s) For Visit Diagnoses Date Provider Providers Copied on Encounter [facility] [address], [place], [address], [place] tel:[phone] [facility] (chief complaint) PRES (posterior reversible encephalopathy syndrome)Pseudop hakia of both eyes Eulalia Alvarado. [address], [place], [place], [id number] , [place]. tel:[phone] Referring Provider: Christiano Kennedy, [address], [place], [address] . tel:[phone] Family History Family Member Type Diagnosis Age At Onset No Information Payers Payer name Insurance type Covered democrat ID Jeison canela(s) [facility] [id number] Social History Type Description Quantity Date Captured Comments Alcohol Use Details No Caffeine Use Details No Tobacco Use Status Current non-smoker Smoking Status Never smoker Non-Smoking Tobacco Use Details : No Details Available : No Details Available Sex Female Chief Complaint And Reason For Visit From encounter dated '09/09/2021 13:05'. decreased vision (chief complaint). Description: The 61 year old female presents for evaluation of decreased vision in the right eye and left eye. Patient had two strokes in the month of July 2021which lead to decreased distance vision is both eyes. Decreased peripheral vision accompanied by constant headache temporally. Constant tearing within the last two months. Patient c/o light sensitivity. Longstanding floaters in both eyes prior to stroke. No glare/halo's. Patient denies injury or trauma to eyes.BS: 163A1C: 5.0 07/2021Managing Physician: Dr. German Garzon Reason For Referral Reason For Referral No Information History Of Present Illness Encounter Date Complaint History Of Prese nt Illness decreased vision The 61 year old female presents for evaluation of decreased vision in the right eye and left eye. Patient had two strokes in the month of July 2021 which lead to decreased distance vision is both eyes. Decreased peripheral vision accompanied by constant headache temporally. Constant tearing within the last two months. Patient c/o light sensitivity. Longstanding floaters in both eyes prior to stroke. No glare/halo's. Patient denies injury or trauma to eyes.BS: 163A1C: 5.0 07/2021Managing Physician: Dr. German Garzon Functional Status Date Functional Assessmen t No Information Instructions Date Instruction Additional Infor mation Impression/Plan Related to PRES (posterior reversible encephalopathy syndrome) Impression/Plan Related to Pseud ophakia of both eyes Assessments Type Assessment Date assessment PRES (posterior reversible encep halopathy syndrome) Nov-11-2021 impression PRES (posterior reversible encep halopathy syndrome): I67.83 assessment Pseudophakia of both eyes impression Pseudophakia of both eyes: Z96.1 Patient Care Teams Name Effective Dates (start - stop) Status Members No Information
--- OUTSIDE RECORDS SUMMARY | 2024-06-24 02:28 | XMS_ITS | Encounter Summary ---
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; Abnormal finding on MRI of brain; Other chronic pain; Anxiety and depression Social History Tobacco Use Types Packs/Day Years Used Date Smoking Tobacco: Former Cigarettes Smokeless Tobacco: Never Alcohol Use Standard Drinks/Week Comments Not Currently 0 (1 standard drink = 0.6 oz pur e alcohol) years ago Sex and Gender Information Value Date Recorded Sex Assigned at Not on file Gender Identity Not on file Sexual Orientation Not on file documented as of this encounter Progress Notes * Kamar Mack PsyD - 11/16/2023 4:00 PM EST CONFIDENTIAL NEUROPSYCHOLOGICAL EVALUATION FEEDBACK NOTE Patient Name: Cherelle Jacobs#: [id number] Date of : 1960 Age: 63 years Sex: Female Referred By: Gifty Black MD Date of Evaluation: 09/19/2023 Date of Feedback: 11/16/2023 Ms. Husain gave permission for and was seen today via a telehealth (telephone) visit to discuss her 09/19/2023 [facility] [place]. During this visit, she was located in [place] during feedback. With her permission, her son (Barney Owens) and sister (Emerald Garcia) also attended the session. A total of 60 minutes were spent providing an overview of our findings and recommendations. Ms. Husain noted that she got an eye exam recently and will be receiving new glasses in the coming week. She also clarified that her diabetes is in remission. Emotion regulation techniques and behavioral management strategies were also discussed. She and her family expressed understanding of the information provided. If you would like additional information, please do not hesitate to contact us at . The report is available in full in eDH. 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
--- OUTSIDE RECORDS SUMMARY | 2024-06-24 02:28 | XMS_ITS | Encounter Summary ---
Author Organization [facility] Address [address] [place] [address] Care Team Providers Care Comic Writer Name Role Phone Remedios Mehta MD Primary Care Provider [phone] Encounter Details Date Type Department Care Team (Late st Contact Info) Description 03/14/2000 Results Only [facility] [address] [place] [address] Unknown, Provider, Social History Tobacco Use Types [...] Comments URINALYSIS WITH MICROSCOPIC IF POSITIVE Routine 03/14/2000 19:59 EDT CYTOPATHOLOGY Routine 03/14/2000 0:00 EDT documented in this encounter Results * URINALYSIS (03/14/2000 19:59 EDT) Color, UA Yellow [facility] Clarity, UA Clear [facility] Glucose, UA Norm NORM [facility] Bilirubin, UA Neg NEG [facility] Ketones, UA Neg NEG [facility] Specific [place], Urine 1.010 1.005 - 1.02 [facility] Blood, UA Neg NEG [facility] pH, UA 7.0 5.0 - 9.0 [facility] Protein, UA Neg NEG [facility] Urobilinogen, UA Norm NORM mg/dL [facility] Nitrite, UA Neg NEG [facility] Leuk Esterase Neg NEG [facility] 03/14/2000 19:5 9 EDT 03/14/2000 19:59 EDT Provider Unknown MD URINALYSIS ORDERABLE S Performing Organization Address City/State/[facility] Co de Phone Number [facility] [address] [place] [address] * CYTOPATHOLOGY (03/14/2000 0:00 EDT) Pathology Report: CYTOPATHOLOGY REPORT Reports generated via electronic interface contain original data; however they are lacking the format of the original report. Caution should be taken when reading/interpreti ng unformatted reports. Name: ? CHERELLE HUSAIN ? Accession #: ? [id number] : ? 1960 (Age: 39) ??F ?Collect Date: ? 03/14/2000 Location: ? [facility] ? Receive Date: ? 03/16/2000 Provider: ?FREE CLINIC AT COUNTS INCLUDE 234 BEDS AT [facility] Copy to: ? Specimen/Source: ?ThinPrep Pap Test, Cervix/Endocervix Last Menstrual Period: ? 02/29/00 Previous Gynecologic Pathology: ? Yes ? SPECIMEN ADEQUACY ? Satisfactory for evaluation. GENERAL CATEGORIZATION ? Within Normal Limits ? Document reviewed and electronically signed by: ? LALA Barrios(ASCP) ? Report Date: ??03/20/2000 11:15 End of Report [facility] 03/14/2000 03/16/2000 Provider Unknown MD PATHOLOGY ORDERABLES Performing Organization Address [facility]/State/[facility] Co de Phone Number [facility] [address] [place] [address] documented in this encounter Visit Diagnoses Not on filedocumented in this encounter Care Teams Comic Writer Relationship Specialty Start Date End Date Remedios Mehta MD [address] [place] [address] PCP - General 02/19/09 01/04/15 documented as of this encounter
--- OUTSIDE RECORDS SUMMARY | 2024-06-24 02:28 | XMS_ITS | Encounter Summary ---
Author Organization [facility] [place] [address] Care Team Providers Care Chain Tender Name Role Phone Elly Ling APRN Primary Care Provider Encounter Details Date Type Department Care Team (Latest Contact Info) Description 03/13/2023 Travel Social History Tobacco Use Types Packs/Day [...] on filedocumented in this encounter Care Teams Chain Tender Relationship Specialty Start Date End Date [place] [address] PCP - General Family Medicine 10/19/22 documented as of this encounter
--- OUTSIDE RECORDS SUMMARY | 2024-06-24 02:28 | XMS_ITS | Encounter Summary ---
Author Organization [facility] Address [address] [place] [address] Care Team Providers Care Sinter Feeder Name Role Phone Unavailable Primary Care Provider Unavailabl e Encounter Details Date Type Department Care Team (Latest Contact Info) Description 05/18/2000 8:34 EDT - 05/18/2000 11:59 EDT Hospital Encounter [facility] - Other [address] [place] [address] Rica Bai, HEIDE Unknown, Provider, Discharge Disposition: Auto Discharge Social [...] Procedure Name Priority Date/Time Associated Diagnosis Comments HEMOGLOBIN A1C Routine 05/18/2000 9:30 EDT GLUCOSE, SERUM Routine 05/18/2000 9:30 EDT LIPID PROFILE (INCLUDES CHOLESTEROL, TRIGLYCERIDES, HDL, LDL) Routine 05/18/2000 9:30 EDT documented in this encounter Results * GLUCOSE, SERUM (05/18/2000 9:30 EDT) Glucose, Serum 90 70 - 110 mg/dl [facility] Comment:Fasting 05/18/2000 9:30 EDT 05/18/2000 14:03 EDT Rica Richardson PHARM SPEC CHEMISTRY & BLOOD G ORDERABLES Performing Organization Address [facility] de Phone Number [facility] [address] [place] [address] * LIPID PROFILE (INCLUDES CHOLESTEROL, TRIGLYCERIDES, HDL, LDL) (05/18/2000 9:30 EDT) Cholesterol 216 mg/dl [facility] Comment: Desirable:<200 Borderline:200-239 High Risk:>tg=140 Fasting Triglycerides 106 35 - 160 mg/dl [facility] Comment:Fasting HDL 30 mg/dl [facility] Comment: Highly Desirable:>60 Desirable:35-60 High Risk:<35 Fasting LDL, Calculated 165 mg/dl [facility] Comment: Desirable:<130 Borderline:130-159 High Risk:>dv=261 Fasting Chol/HDL Ratio 7.2 Fasting [facility] 05/18/2000 9:30 EDT 05/18/2000 14:03 EDT Rica Richardson PHARM SPEC CHEMISTRY & BLOOD G ORDERABLES Performing Organization Address [facility] Phone Number [facility] [address] [place] [address] * HEMOGLOBIN A1C (05/18/2000 9:30 EDT) Hemoglobin A1C 5.3 % [facility] Comment: Glucose Control Index Poor=greater than 10% Fair=9-10% Good=8-9% Excellent=7-8% Near Normal=6-7% Non-Diabetic=less than 6% Fasting 05/18/2000 9:30 EDT 05/18/2000 14:03 EDT Rica Richardson PHARM SPEC CHEMISTRY & BLOOD G ORDERABLES Performing Organization Address City/[facility] Co de Phone Number [facility] [address] [place] [address] documented in this encounter Visit Diagnoses Not on filedocumented in this encounter
--- OUTSIDE RECORDS SUMMARY | 2024-06-24 02:28 | XMS_ITS | Encounter Summary ---
Author Organization [facility] Address [facility] [place] [address] Care Team Providers Care Certified Ophthalmic Medical Technician Name Role Phone Elly Ling Evie GRANGER Primary Care Provider [phone] Encounter Details Date Type Department Care Team (Latest Contact Info) Description 03/13/2023 12:48 PM EDT - 03/13/2023 11:59 PM EDT Hospital Encounter [place] [address] Ataxia; Encephalopathy Discharge Disposition: Home Social History Tobacco Use Types Packs/Day Years [...] Sig Dispensed Refills Start Date End Date valproate (Depakene) 250 mg/5 mL Solution Take 250 mg by mouth 2 times daily. acetaminophen (Tylenol) 500 mg tablet Take 1,000 mg by mouth every 8 hours as needed for Pain. albuteroL 90 mcg/actuation HFA Aerosol Inhaler Inhale 2 puffs into the lungs Every 4 hours. 08/25/2012 albuteroL (Proventil, Ventolin) (2.5 mg/3 mL) (0.083 %) Solution for Nebulization Inhale 2.5 mg into the lungs Every 4 hours as needed. 08/25/2012 atorvastatin (Lipitor) 20 mg Tablet Take 20 mg by mouth daily. 12/17/2022 budesonide-formoteroL (Symbicort) 80-4.5 mcg/actuation HFA Aerosol Inhaler Inhale 2 puffs into the lungs every 12 hours as needed. 06/05/2013 busPIRone (Buspar) 5 mg Tablet Take 5 mg by mouth 2 times daily. 12/17/2022 clopidogreL (Plavix) 75 mg Tablet Take 75 mg by mouth daily. 12/17/2022 diclofenac (Voltaren) 1 % Gel as needed. 12/18/[address] (Cymbalta) 20 mg Capsule, Delayed Release(E.C.) Take 20 mg by mouth 2 times daily. 12/17/2022 famotidine (Pepcid) 20 mg Tablet Take 20 mg by mouth 2 times daily. 11/03/2022 fluticasone propionate (Flonase) 50 mcg/actuation [place], Suspension 1 spray by Nasal route Daily. 06/05/2013 loratadine (Claritin) 10 mg Tablet Take 10 mg by mouth Daily. 08/21/2013 lubiprostone (Amitiza) 24 mcg Capsule Take 24 mcg by mouth as needed. 09/27/2010 traZODone (Desyrel) 50 mg Tablet Take 50 mg by mouth nightly. 12/17/2022 documented as of this encounter Procedure Notes * Rodney Culver MD - 03/13/2023 2:34 PM EDTAssociated Order(s): EEG ROUTINE Pre-Procedure Diagnose(s): Ataxia; Encephalopathy [facility] Department of Neurology Outpatient Ambulatory EEG Report Name of the Patient: Cherelle Husain Date of : 1960 Date of Service: 03/13/2023 Referring physician: Sanju Martinez Resident/Fellow: Kasi Attending: EEG start time and date: 13:41:06 on 03/13/2023 EEG end time and date: 14:12:20 on 03/13/2023 Total time recorded: 30:05 Indication for EEG: Other (Multiple neurological symptoms with unclear etiology) BRIEF HISTORY: Cherelle Husain is a 62 y.o. female with multiple hospitalization in other states; c/o daily headaches and balance/coordination problems. On review of hospital records it is unclear what was really wrong with her. At one point there was concern for sepsis. From a neurological standpoint she was noted to have confusion, imbalance, and nystagmus that was worse when looking to the right. MRI scan of the brain from the hospitalization in [place] is noteworthy by report for cerebellar edema ofunclear etiology. She had a lumbar puncture but those results are not available. No malignancy has been found, although she did have endometrial cancer some years ago. Pt reports that OSH found neurological evidence of prior strokes. MEDICATIONS: PRIOR EEG(s): METHODS: A 21 channel digitized electroencephalogram was performed in the [facility] Clinical Neurophysiology Laboratory. The 10/20 international system of electrode placement was used and bipolar electrode montages were recorded. In addition to EEG the patient was monitored for EKG. Video was recorded during the session. BLOW MOLDING MACHINE OPERATOR'S REPORT: Performed by: TIMOTHY Bello/ Lizzy Stokes Sleep was not attained. Photic stimulation was performed. Hyperventilation was not performed. Effort was not adequate. Movement and other artifact was not significant. Comments: Obtained history from son, who has current (DPOA ?) of his mother while working through her medical issues. Resides with him in [place]. Complained of R sided neck pain while electrodes were being placed. ELECTROENCEPHALOGRAPHER'S REPORT: Background During the awake state with the eyes closed the background consisted of a moderatre amplitude, 13 Hz posterior reactive rhythm that attenuated appropriately with eye opening. There was a normal anterior-posterior voltage gradient. There were no significant asymmetries of background activity noted. Sleep Stage II sleep was not obtained. Hyperventilation Hyperventilation was not performed due to the viral pandemic Photic Stimulation Intermittent photic stimulation was performed using a step-espinal increase in photic frequency varying from 1-21 Hertz resulted in no appearance of abnormal activity. Abnormal EEG Activity None EKG EKG revealed normal sinus rhythm. PRIOR EEG: No previous EEG reports were available. INTERPRETATION: This 30-minute routine EEG was normal in the awake and drowsy states. CLINICAL CORRELATION: Normal awake and drowsy EEG. No epileptiform discharges, events, or seizures. A normal EEG does notrule out epilepsy. If clinical suspicion remains, a longer ambulatory study may be considered, if clinically indicated. Ga Fernandez, DO Neurology, PGY-4 03/13/2023 I reviewed the EEG and I agree with the interpretation as written. Rodney Culver MD documented in this encounter Plan of Treatment Not on file documented as of this encounter Procedures Procedure Name Priority Date/Time Associated Diagnosis Comments EEG Routine 03/13/2023 2:34 PM EDT Ataxia Encephalopathy documented in this encounter Results * EEG ROUTINE (03/13/2023 2:34 PM EDT) Narrative Rodney Culver MD - 03/13/2023 2:34 PM EDT Rodney Culver MD ? 03/14/2023 ??3:45 PM [facility] Department of Neurology Outpatient Ambulatory EEG Report Name of the Patient: ??Cherelle Husain Date of : ?1960 Date of Service: ?03/13/2023 Referring physician: ?Sanju Martinez Resident/Fellow: ?? Reading Attending: EEG start time and date: 13:41:06 on 03/13/2023 EEG end time and date: 14:12:20 on 03/13/2023 Total time recorded: 30:05 Indication for EEG: Other (Multiple neurological symptoms with unclear etiology) BRIEF HISTORY: Cherelle Husain is a 62 y.o. female with multiple hospitalization in other states; c/o daily headaches and balance/coordination problems. On review of hospital records it is unclear what was really wrong with her. ??At one point there was concern for sepsis. ??From a neurological standpoint she was noted to have confusion, imbalance, and nystagmus that was worse when looking to the right. ??MRI scan of the brain from the hospitalization in [place] is noteworthy by report for cerebellar edema of unclear etiology. ??She had a lumbar puncture but those results are not available. ??No malignancy has been found, although she did have endometrial cancer some years ago. Pt reports that OSH found neurological evidence of prior strokes. MEDICATIONS: PRIOR EEG(s): METHODS: A 21 channel digitized electroencephalogram was performed in the [facility] Clinical Neurophysiology Laboratory. The 10/20 international system of electrode placement was used and bipolar electrode montages were recorded. ??In addition to EEG the patient was monitored for EKG. Video was recorded during the session. BLOW MOLDING MACHINE OPERATOR'S REPORT: Performed by: TIMOTHY Bello/ Lizzy Stokes Sleep was not attained. Photic stimulation was performed. Hyperventilation was not performed. Effort was not adequate. Movement and other artifact was not significant. Comments: Obtained history from son, who has current (DPOA ?) of his mother while working through her medical issues. Resides with him in [place]. Complained of R sided neck pain while electrodes were being placed. ELECTROENCEPHALOGRAPHER'S REPORT: Background During the awake state with the eyes closed the background consisted of a moderatre amplitude, 13 Hz posterior reactive rhythm that attenuated appropriately with eye opening. There was a normal anterior-posterior voltage gradient. There were no significant asymmetries of background activity noted. Sleep Stage II sleep was not obtained. Hyperventilation Hyperventilation was not performed due to the viral pandemic Photic Stimulation Intermittent photic stimulation was performed using a step-espinal increase in photic frequency varying from 1-21 Hertz resulted in no appearance of abnormal activity. Abnormal EEG Activity None EKG EKG revealed normal sinus rhythm. PRIOR EEG: No previous EEG reports were available. INTERPRETATION: This 30-minute routine EEG was normal in the awake and drowsy states. CLINICAL CORRELATION: Normal awake and drowsy EEG. ??No epileptiform discharges, events, or seizures. A normal EEG does not rule out epilepsy. If clinical suspicion remains, a longer ambulatory study may be considered, if clinically indicated. Ga Fernandez, DO Neurology, PGY-4 03/13/2023 __ I reviewed the EEG and I agree with the interpretation as written. Rodney Culver MD Sanju Martinez MD NEUROLOGY ORDERABLES documented in this encounter Visit Diagnoses Diagnosis Ataxia Lack of coordination Encephalopathy Encephalopathy, unspecified documented in this encounter Care Teams Certified Ophthalmic Medical Technician Relationship Specialty Start Date End Date Elly Ling, [place] [address] PCP - General Family Medicine 10/19/22 documented as of this encounter
--- OUTSIDE RECORDS SUMMARY | 2024-06-24 02:28 | XMS_ITS | Encounter Summary ---
[place] [address] Care Team Providers Care Boiler Tube Blower Name Role Phone Elly Ling Evie GRANGER Primary Care Provider [phone] Encounter Details Date Type Department Care Team (Latest Contact Info) Description 01/04/2023 1:27 PM EST - 01/04/2023 11:59 PM EST Hospital [place] [address] Discharge Disposition: Home Social History Tobacco Use [...] Sig Dispensed Refills Start Date End Date albuteroL 90 mcg/actuation HFA Aerosol Inhaler Inhale [...] daily. 11/03/2022 fluticasone propionate (Flonase) 50 mcg/actuation [place], Suspension 1 spray by Nasal route Daily. 06/05/2013 loratadine (Claritin) 10 mg Tablet Take 10 mg by mouth Daily. 08/21/2013 lubiprostone (Amitiza) 24 mcg Capsule Take 24 mcg by mouth as needed. 09/27/2010 traZODone (Desyrel) 50 mg Tablet Take 50 mg by mouth nightly. 12/17/2022 acetaminophen (Tylenol) 325 mg Tablet Take 650 mg by mouth Every 6 hours as needed. 03/17/2014 03/13/2023 documented as of this encounter Plan of Treatment Not on file documented as of this encounter Visit Diagnoses Not on filedocumented in this encounter Care Teams Boiler Tube Blower Relationship Specialty Start Date End [place] [address] PCP - General Family Medicine 10/19/22 documented as of this encounter
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
--- OUTSIDE RECORDS SUMMARY | 2024-06-24 02:28 | XMS_ITS | Encounter Summary ---
[facility] [place] [address] Care Team Providers Care Light Bulb Tester Name Role Phone Unknown Primary Care Provider Unavailabl e Encounter Details Date Type Department Care Team (Late st Contact Info) Description 07/21/2022 Ancillary Procedure [place] [address] Elly Ling APRN [address] [place] [address] Social History Tobacco Use Types Packs/Day Years Used Date Smoking Tobacco: Never Assessed Sex and Gender Information Value Date Recorded Sex Assigned at Not on file Gender Identity Not on file Sexual Orientation Not on file documented as of this encounter Plan of Treatment Not on file documented as of this encounter Procedures Procedure Name Priority Date/Time Associated Diagnosis Comments FILM LIBRARY STORAGE ONLY MR HEAD Routine 07/21/2022 12:00 AM EDT documented in this encounter Results * Film Library- Storage Only MR Head (07/21/2022 12:00 AM EDT) Narrative BRANDON - 10/04/2022 3:51 PM EST This exam is auto-finalizing. It's purpose is for storage only. Elly Ling APRN IMG FILM LIBRARY ORD ERABLES [place], [place] documented in this encounter Visit Diagnoses Not on filedocumented in this encounter Care Teams Light Bulb Tester Relationship Specialty Start Date End Date Unknown None PCP - General 09/28/14 10/18/22 documented as of this encounter
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
--- OUTSIDE RECORDS SUMMARY | 2024-06-24 02:28 | XMS_ITS | Encounter Summary ---
Author Organization [facility] Address [address] [place] [address] Care Team Providers Care Splicing Machine Operator Name Role Phone Unavailable Primary Care Provider Unavailabl e Encounter Details Date Type Department Care Team (Late st Contact Info) Description 06/16/2000 12:12 EDT Hospital Encounter [facility] - Other [address] [place] [address] Harsha Chong MD Unknown, Provider, Social History Tobacco Use [...] Asthma 133/57(2020 14:39 EDT) No Gibson, Emily, INDUSTRIAL ACCOUNTANT LDL < 130 Result Component Hyperlipidemia 143( 4 11:54 EDT) No Gibson, Emily, INDUSTRIAL ACCOUNTANT documented as of this encounter Procedures Procedure Name Priority Date/Time Associated Diagnosis Comments CHEST PA AND LATERAL Routine 06/19/2000 10:51 EDT HSV (ONLY) CULTURE Routine 06/16/2000 9 :40 EDT documented in this encounter Results * CHEST PA AND LATERAL (06/19/2000 10:51 EDT) Anatomical Region Laterality Modality Other 06/19/2000 10:5 1 EDT Impressions 09/08/2009 17:51 EST IMPRESSION: #1: Stable chest xray. Evidence of previous granulomatous disease, no evidence of acute cardiopulmonary disease. D: 08-10-00 T: 08-14-00 /am Narrative 09/08/2009 17:51 EST INCR SOB R/O ACUTE PULMONARY PROCESS MF HERE/GFTP 06-19-00: PA AND LATERAL CHEST (1015 hrs): CLINICAL HISTORY: Increased shortness of breath, rule out acute pulmonary process. COMPARISON: 07-25-96. Please note that this film is made available for dictation on 08-10-00. The cardiomediastinal silhouette and pulmonary vascularity remain normal. Again noted are calcified granulomata in the right upper lobe. The lungs are otherwise clear. Procedure Note Mukesh Robles MD - 09/08/2009 INCR SOB R/O ACUTE PULMONARY PROCESS MF HERE/GFTP 06-19-00: PA AND LATERAL CHEST (1015 hrs): CLINICAL HISTORY: Increased shortness of breath, rule out acute pulmonary process. COMPARISON: 07-25-96. Please note that this film is made available for dictation on 08-10-00. The cardiomediastinal silhouette and pulmonary vascularity remain normal. Again noted are calcified granulomata in the right upper lobe. The lungs are otherwise clear. IMPRESSION IMPRESSION: #1: Stable chest xray. Evidence of previous granulomatous disease, no evidence of acute cardiopulmonary disease. D: 08-10-00 T: 08-14-00 /am Madhu Mosley MD IMG DIAGNOSTIC IMAGI NG ORDERABLES * HSV (ONLY) CULTURE (06/16/2000 9:40 EDT) Specimen Description Lip [facility] Result No herpes simplex recovered [facility] Report Status Final [id number] [facility] 06/16/2000 9:40 EDT 06/16/2000 11:57 EDT Harsha Chong MD MICROBIOLOGY - GENER AL ORDERABLES [facility] [address] [place] [address] documented in this encounter Visit Diagnoses Not on filedocumented in this encounter Additional Health Concerns Infection Onset Date Last Indicated Resolved Time Rule-Out C. difficile 2021 04/16/20212020 13:40 EDT C. difficile 04/16/2021 04/16/2021 06/15/2021 22:1 5 EDT documented as of this encounter
--- OUTSIDE RECORDS SUMMARY | 2024-06-24 02:28 | XMS_ITS | Encounter Summary ---
Author Organization [facility] Address [facility] [place] [address] Care Team Providers Care Special Delivery Worker Name Role Phone Elly Ling ELKIN Primary Care Provider [phone] Reason for Visit * Consultation (Routine) - Closed Specialty Diagnoses / Procedures Referred By Joao proctor Referred To Contact Neurology Diagnoses Encephalopathy, unspecified Unspecified nystagmus Ataxia, unspecified Other amnesia Gifty Lamas MD [facility] [address] [place] [id number] Sanju Martinez MD [facility] [place] [address] Referral ID Status Reason Start Date Expiration Date V isits Requested Visits Authorized [id number] Closed Second Opinion 10/05/2022 10/05/2023 1 1 Encounter Details Date Type Department Care Team (Late st Contact Info) Description 01/04/2023 1:00 PM EST [place] [address] Sanju Martinez MD [facility] [place] [address] Ataxia; Encephalopathy; Anxiety; Asthma, unspecified asthma severity, unspecified whether complicated, unspecified whether persistent; Thrombophlebitis; Irritable bowel syndrome, unspecified type; Endometrial cancer; Carpal tunnel syndrome, unspecified laterality; Chronic neck pain; Hypercoagulable state Social History Tobacco Use Types Packs/Day Years [...] Sign Reading Time Taken Comments Blood Pressure 114/74 01/04/2023 12:58 PM EST Pulse 85 01/04/2023 12:58 PM EST Temperature - - Respiratory Rate - - Oxygen Saturation - - Inhaled Oxygen Concentration - - Weight 83.5 kg (184 lb) 01/04/2023 12:58 PM EST Height 152.4 cm (5') 01/04/2023 12:58 PM EST rep orted Body Mass Index 35.94 01/04/2023 12:58 PM EST documented in this encounter Patient Instructions * Patient Instructions* Sanju Martinez MD - 01/04/2023 1:00 PM EST I think you are doing reasonably well. It is not clear what exactly happened in the past, but I think you had some illness that damaged your brain. I think this was a single one-time event and you have improved subsequently. I do not think you have any progressive worsening degenerative disorder at this time. The pictures of your brain showed damage to the cerebellum part of the brain towards the back and that explains your bad balance, and eye problems. I would like you to get some blood tests here today. I would like you to get an EEG at your next visit, and please bring either the most up-to-date listof medications or all your pill bottles with you At that point we can consider additional treatment for your headaches and your memory problem. Sanju Martinez MD Professor of neurology, [facility] [employer] at [facility] Department of Neurology, [address] [address], [place] [address], [facility] Pager: [phone], #[phone] Email: [email or web address] [facility] documented in this encounter Progress Notes * Sanju Martinez MD - 01/04/2023 1:00 PM EST Neurology Clinic Note Chief complaint: Ataxia, nystagmus and confusion History: The patient is 62 years old and right handed, and was referred for neurological consultation by Dr.Van Church to address the issue of the underlying etiology of her symptoms and signs. History was obtained from the patient and her son who accompanied her and from review of records sent by Dr. Verma. The patient thinks she had a normal [...] twice. Around 2015 the patient moved to [place] with her boyfriend. Then she became progressively unwell with confusion and bad balance. Reasons for this are unclear. About 3 years ago she returned to [place] and her son and daughter noted poor memory and lethargy. She was hospitalized at [facility] for afew days with no specific diagnosis being established. She returned to [place] and again became ill and bedridden. Her daughter who was at that time in [place] arranged for her to be hospitalized, and she then went to rehabilitation. She subsequently went with her daughter to [place]. She was hospitalized again in [facility]. She then moved to assisted living in [place], and in 2021 was moved back by her family to live with [facility]. On review of hospital records it is unclear what was really wrong with her. At one point there was concern for sepsis. From a neurological standpoint she was noted to have confusion, imbalance, and nystagmus that was worse when looking to the right. MRI scan of the brain from the hospitalization [facility] is noteworthy by report for cerebellar edema [...] drugs in the past Subsequently here in [place], her son describes improvement in her memory balance and coordination.However she is still not mentally at baseline, nor is she mentally normal (see exam below). She hadfollow-up MRI scan of the brain with contrast in [place] which shows, to my review, no abnormal [...] not really capable ofliving independently. Interval History: None, initial visit with me. Past medical history: Patient Active Problem List [...] 110, factor V Leiden negative, prothrombin gene 77485P negative, PTT 32. Protein S 118,?? b.?? [...] is now living with her sister in [facility]. Her son lives in [place] and keeps an eye on her also. He is an financial engineer. Her daughter is in [place] Review of systems: 1. Eating: Normal 2. Sleeping: Inconsistent 3. Bowels: Irritable bowel syndrome, tends to be constipated, but then has diarrhea when she treatsthe constipation 4. Bladder: Has urinary frequency and urgency 5. All other systems were reviewed and were normal except as noted in history Medications: Current Outpatient Medications Medication Sig Dispense Refill ??? acetaminophen (Tylenol) 325 mg Tablet Take 650 mg by mouth Every 6 hours as needed. ??? albuteroL 90 mcg/actuation HFA Aerosol Inhaler [...] Inhaler Inhale 2 puffs into the lungs Twice daily. ??? busPIRone (Buspar) 5 mg Tablet Take 5 mg by mouth 2 times daily. ??? clopidogreL (Plavix) 75 mg Tablet Take 75 mg by mouth daily. ??? diclofenac (Voltaren) 1 % Gel as needed. ??? DULoxetine DR (Cymbalta) 20 mg Capsule, Delayed Release(E.C.) Take 20 mg by mouth 2 times daily. ??? famotidine (Pepcid) 20 mg Tablet Take 20 mg by mouth as needed. ??? fluticasone propionate (Flonase) 50 mcg/actuation [place], Suspension 1 spray by Nasal route Daily. ??? loratadine (Claritin) 10 mg Tablet Take 10 mg by mouth Daily. ??? lubiprostone (Amitiza) 24 mcg Capsule Take 24 mcg by mouth as needed. ??? traZODone (Desyrel) 50 mg Tablet Take 50 mg by mouth nightly. No current facility-administered medications for this visit. [...] Containing Prod Other reaction(s): Constipation Physical Exam: VS: BP 114/74 (BP Location (NBP): Right arm, Patient Position: Sitting) Pulse 85 Ht 152.4 cm (5') Comment: reported Wt 83.5 kg (184 lb) BMI 35.94 kg/m?? HEENT: Normal, except for left occipital neuralgia Heart: Normal S1, S2, no abnormal sounds Lungs: Clear Abdomen: Benign Extremities: Normal Neurological exam: Mental state: Vague historian. Scored 24/30 on MMSE. Had areas of orientation, difficulty with calculations, and difficulty drawing the interlocking pentagons. Was able to spell forwards and backwards, and surprisingly recalled 3 out of 3 objects. Speech: Normal Cranial nerves: I: Not tested II: With reading glasses. Left eye 20/25 and right eye 20/40. Has had cataract surgeries III, IV, : EOMs full with multidirectional nystagmus without clear and slow and fast phases. Mostprominent on gaze to the right with a torsional component. Probably cerebellar, however Grifton-Hallpike testing positive with the right ear closer to the ground. Also skew diplopia in multiple directions and positions of gaze, with no consistent pattern that I can discern V: Facial sensation normal VII: Facial strength normal VIII: Hearing somewhat diminished bilaterally although tuning fork test do not clearly lateralize IX, X: Palate movement normal XI: Shoulder shrug normal XII: Tongue movement normal Motor: Strength: Normal 5/5 Fine motor: Somewhat impaired bilaterally Tone: Normal Abnormal movements: None Deep tendon reflexes: 2+ right, 3+ left except both ankles are 2+. Babinski sign: None Other reflexes: Not tested Sensation: Touch: Normal Pin: Gradient from feet to knees more apparent on left. Right knee has been replaced. Position: Normal Vibration: Diminished bilaterally worse on the right. Neglect/extinction: None Graphesthesia: Normal Cerebellar: Finger to nose: Mild action tremor bilaterally Heel to herman: Surprisingly normal Other: More abnormal rebound on the left Gait: Mildly ataxic in a nonspecific manner. Has difficulty with tandem walking. Able with support of hands, to get up on heels and toes Labs: Orders Placed This Encounter Procedures ??? Basic Metabolic Panel (non-fasting) ??? [...] ROUTINE EKG: EEG: To be done here 2023 X-Ray: CAT scans: MRI scans: Reviewed MRI scan from [place] which shows calcifications bilaterally of the dentate nucleiin the cerebellum, and bright signal lesion along the posterior lateral borders of the cerebellum bilaterally Impression and suggestions: It is not altogether clear what has happened to the patient or what the best course of action is now. 1. The first question that comes to mind is parts of the nervous system have been affected by what ever illness the patient had. There is clear evidence for cerebellar involvement based on the MRI findings. This is corroborated clinically by the presence of mild action tremor, mild incoordination, and abnormal rebound on the left. However, the brisker reflexes on the left are not consistent with cerebellar disease, and suggest involvement of the pyramidal motor system as well. This would argue more diffuse cerebral disease, and this is corroborated clinically by the abnormalities seen on the MMSE. She had difficulty with questions of orientation, as well as with drawing the interlocking pentagon figure. The patient's nystagmus is multidirectional, without clear fast and slow phases, which again suggests cerebellar involvement. However, the positive findings on Manjit-Hallpike testing with the right earcloser to the ground suggest that there is vestibular involvement as well. In short, this is a multisystem process. The patient also has a mild distal sensory neuropathy that is rather nonspecific in character. I amscreening her for reversible causes of neuropathy with blood tests as listed above 2. With regard to the question of underlying etiology, I am doubtful that we are dealing with a progressive degenerative disorder. According to the patient's son she is clearly improved since she returned to [place]. Improvement is not a clinical characteristic of degenerative disorders, although they can sometimes have a fluctuating course. It seems more likely to me that she had an acute or subacute illness, that may have been infectious, metabolic/nutritional, parainfectious/autoimmune, or related to sepsis in a nonspecific manner. I doubt that the lesions we are seeing represent vascular ischemia or trauma. A paraneoplastic process is a possibility, although those usually do not show improvement without immunosuppressive treatment or treatment of the underlying malignancy, and over 2 years no malignancy has shown up. There is also no family history to suggest hereditary cerebellar degeneration, although there are recessivevarieties of which she may be the only manifestation. 3. It s not clear what we should do next. I doubt that there is any specific treatment. She seems to be improving gradually in a healthy home environment, and we could simply wait and see what happens. I am screening her with blood tests as listed above. It would be quite reasonable to do a lumbar puncture with fluid sent for routine and special inflammatory studies as well as CSF paraneoplastic antibodies, but the patient flatly declines. If she shows signs of deterioration I will offer her the option again. She is anxious to move out of her sister's home and live independently. Given her obvious cognitivelimitations, I think this would be ill-advised. It is certain she would require quite a lot of support from her family in any independent or semi-independent situation. Her son would like her to be in dependent, but he lives quite far away and has family and job responsibilities of his own. I plan to see her back in 6 weeks, and will be in a better position to agency trainer whether she is showingfurther improvement. She will get an EEG on the same day to give us a better handle on the encephalopathy. I doubt she is having seizures. I will at that point probably offer her a therapeutic trial of Aricept and Namenda. Some clonazepam could also be tried for the nystagmus, and she could be referred to physical therapy for vestibular desensitization exercises. Her headaches have features of migraine and occipital neuralgia, and she could be treated on that basis also. Thank you for this consultation. I will see the patient back in 6 weeks. She will get an EEG on the same day Sanju Martinez MD [place] [address] Pager: [phone], #[phone] Email: [email or web address] [facility] CC: ELKIN Albert MD documented in this encounter Plan of Treatment Not on file documented as of this encounter Procedures Procedure Name Priority Date/Time Associated Diagnosis Comments HC LYME DISEASE, JESS Routine 3:42 PM EST Ataxia MISC BENNETT TEST-BENNETT Routine 01/04/2023 3 :42 PM EST HEMOGRAM Routine 01/04/2023 3:42 PM EST Ataxia DIFFERENTIAL, AUTOMATED Routine 01/05/20 3:42 PM EST Ataxia HC PCH THIAMIN LVL(VITAMIN B1) WB-BENNETT Routine 01/04/2023 3:42 PM EST Ataxia HC PCH PYRUVIC ACID Routine 01/04/2023 3 :42 PM EST Ataxia HC TISSUE TRANSGLUTAMINASE AB Routine 01/04/2023 3:42 PM EST Ataxia HC VITAMIN D TOTAL-25 HYDROXY Routine 01/04/2023 3:42 PM EST Ataxia HC CARDIOLIPIN ANTIBODIES Routine 01/04/2023 3:42 PM EST Ataxia HC ESR-SEDIMENTATION RATE, BLOOD Routine 01/04/2023 3:42 PM EST Ataxia HC CBC,PLT & AUTO DIFF Routine 3 3:42 PM EST Ataxia HC RHEUMATOID FACTOR Routine 01/04/2023 3:42 PM EST Ataxia HC DNA AB DS (SH[place]OCK) Routine 01/04/2023 3:42 PM EST Ataxia HC THYROID STIMULATING HORMONE, SERUM Routine 01/04/2023 3:42 PM EST Ataxia HC TOTAL T4 Routine 01/04/2023 3:42 PM EST Ataxia HC SERUM PROT. ELECTROPHORESIS Routine 01/04/2023 3:42 PM EST Ataxia HC MAGNESIUM, SERUM Routine 01/04/2023 3 :42 PM EST Ataxia HC L-LACTATE Routine 01/04/2023 3:42 PM EST Ataxia HC FOLATE, SERUM Routine 01/04/2023 3:42 PM EST Ataxia HC VITAMIN B12 SERUM Routine 01/04/2023 3:42 PM EST Ataxia HC CORTISOL, BLOOD Routine 01/04/2023 3: 42 PM EST Ataxia HEPATIC FUNCTION PANEL Routine 3:42 PM EST Ataxia BASIC METABOLIC PANEL Routine 01/04/2023 3:42 PM EST Ataxia documented in this encounter Results * EEG ROUTINE (03/13/2023 2:34 PM EDT) Narrative Rodney uClver MD - 03/13/2023 2:34 PM EDT Rodney Culver MD ? 03/14/2023 ??3:45 PM [facility] Department of Neurology Outpatient Ambulatory EEG Report Name of the Patient: ??Cherelle Husain Date of : ?1960 Date of Service: ?03/13/2023 Referring physician: ?Sanju Martinez Reading Resident/Fellow: ?? Reading Attending: EEG start time [...] of the brain from the hospitalization in [place] is noteworthy by report for cerebellar edema of unclear etiology. ??She had a lumbar puncture but those results are not available. ??No malignancy has been found, although she did have endometrial cancer some years ago. Pt reports that OSH found neurological evidence of prior strokes. MEDICATIONS: PRIOR EEG(s): METHODS: A 21 channel digitized electroencephalogram was performed in the [facility]. The 10/20 international system of electrode placement was used and bipolar electrode montages were recorded. ??In addition to EEG the patient was monitored for EKG. Video was recorded during the session. BURIAL VAULT SETTER'S REPORT: Performed by: TIMOTHY Bello/ Lizzy Stokes Sleep was not attained. Photic stimulation was performed. Hyperventilation was not performed. Effort was not adequate. Movement and other artifact was not significant. Comments: Obtained history from son, who has current (DPOA ?) of his mother while working through her medical issues. Resides with him in [place]. Complained of R sided neck pain while [...] Culver MD Sanju Martinez MD NEUROLOGY ORDERABLES * [facility] (01/04/2023 3:42 PM EST) [facility] ?Result ? Flag ??Unit ?RefValue --- Encephalopathy, Autoimm/Paraneo, S ??Encephalopathy, Interpretation, S ? SEE COMMENTS ?No informative autoantibodies were detected in this ?evaluation. However, a negative result does not exclude ?autoimmune encephalopathy, idiopathic or paraneoplastic. ?Sensitivity and specificity of antibody testing are ?enhanced by testing both serum and CSF. ??IFA Notes ? None. ??AMPA-R Ab CBA, S ?Negative ? Negative ? --ADDITIONAL INFORMATION-------- ?This test was developed and its performance characteristics ?determined by [facility] in a manner consistent with CLIA ?requirements. This test has not been cleared or approved by ?the U.S. Food and Drug Administration. ??Amphiphysin Ab, S ? Negative ? Negative ? --ADDITIONAL INFORMATION-------- ?This test was developed and its performance characteristics ?determined by [facility] in a manner consistent with CLIA ?requirements. This test has not been cleared or approved by ?the U.S. Food and Drug Administration. ??AGNA-1, S ? Negative ? Negative ? --ADDITIONAL INFORMATION-------- ?This test was developed and its performance characteristics ?determined by [facility] in a manner consistent with CLIA ?requirements. This test has not been cleared or approved by ?the U.S. Food and Drug Administration. ??TALHA-1, S ? Negative ? Negative ? --ADDITIONAL INFORMATION-------- ?This test was developed and its performance characteristics ?determined by [facility] in a manner consistent with CLIA ?requirements. This test has not been cleared or approved by ?the U.S. Food and Drug Administration. ??TALHA-2, S ? Negative ? Negative ? --ADDITIONAL INFORMATION-------- ?This test was developed and its performance characteristics ?determined by [facility] in a manner consistent with CLIA ?requirements. This test has not been cleared or approved by ?the U.S. Food and Drug Administration. ??TALHA-3, S ? Negative ? Negative ? --ADDITIONAL INFORMATION-------- ?This test was developed and its performance characteristics ?determined by [facility] in a manner consistent with CLIA ?requirements. This test has not been cleared or approved by ?the U.S. Food and Drug Administration. ??CASPR2-IgG CBA, S ? Negative ? Negative ? --ADDITIONAL INFORMATION-------- ?This test was developed and its performance characteristics ?determined by [facility] in a manner consistent with CLIA ?requirements. This test has not been cleared or approved by ?the U.S. Food and Drug Administration. ??CRMP-5-IgG, S ? Negative ? Negative ? --ADDITIONAL INFORMATION-------- ?This test was developed and its performance characteristics ?determined by [facility] in a manner consistent with CLIA ?requirements. This test has not been cleared or approved by ?the U.S. Food and Drug Administration. ??DPPX Ab IFA, S ?Negative ? Negative ? --ADDITIONAL INFORMATION-------- ?This test was developed and its performance characteristics ?determined by [facility] in a manner consistent with CLIA ?requirements. This test has not been cleared or approved by ?the U.S. Food and Drug Administration. ??BIJAN-B-R Ab CBA, S ?Negative ? Negative ? --ADDITIONAL INFORMATION-------- ?This test was developed and its performance characteristics ?determined by [facility] in a manner consistent with CLIA ?requirements. This test has not been cleared or approved by ?the U.S. Food and Drug Administration. ??GAD65 Ab Assay, S ? 0.01 ? nmol/L ??<= 0.02 ? --ADDITIONAL INFORMATION-------- ?This test was developed and its performance characteristics ?determined by [facility] in a manner consistent with CLIA ?requirements. This test has not been cleared or approved by ?the U.S. Food and Drug Administration. ??GFAP IFA, S ? Negative ? Negative ? --ADDITIONAL INFORMATION-------- ?This test was developed and its performance characteristics ?determined by [facility] in a manner consistent with CLIA ?requirements. This test has not been cleared or approved by ?the U.S. Food and Drug Administration. ??IgLON5 IFA, S ? Negative ? Negative ? --ADDITIONAL INFORMATION-------- ?This test was developed and its performance characteristics ?determined by [facility] in a manner consistent with CLIA ?requirements. This test has not been cleared or approved by ?the U.S. Food and Drug Administration. ??LGI1-IgG CBA, S ? Negative ? Negative ? --ADDITIONAL INFORMATION-------- ?This test was developed and its performance characteristics ?determined by [facility] in a manner consistent with CLIA ?requirements. This test has not been cleared or approved by ?the U.S. Food and Drug Administration. ??mGluR1 Ab IFA, S ?Negative ? Negative ? --ADDITIONAL INFORMATION-------- ?This test was developed and its performance characteristics ?determined by [facility] in a manner consistent with CLIA ?requirements. This test has not been cleared or approved by ?the U.S. Food and Drug Administration. ??Neurochondrin IFA, S ?Negative ? Negative ? --ADDITIONAL INFORMATION-------- ?This test was developed and its performance characteristics ?determined by [facility] in a manner consistent with CLIA ?requirements. This test has not been cleared or approved by ?the U.S. Food and Drug Administration. ??NIF IFA, S ?Negative ? Negative ? --ADDITIONAL INFORMATION-------- ?This test was developed and its performance characteristics ?determined by [facility] in a manner consistent with CLIA ?requirements. This test has not been cleared or approved by ?the U.S. Food and Drug Administration. ??NMDA-R Ab CBA, S ?Negative ? Negative ? --ADDITIONAL INFORMATION-------- ?This test was developed and its performance characteristics ?determined by [facility] in a manner consistent with CLIA ?requirements. This test has not been cleared or approved by ?the U.S. Food and Drug Administration. ??ROLLER CHECKER-1, S ?Negative ? Negative ? --ADDITIONAL INFORMATION-------- ?This test was developed and its performance characteristics ?determined by [facility] in a manner consistent with CLIA ?requirements. This test has not been cleared or approved by ?the U.S. Food and Drug Administration. ??ROLLER CHECKER-2, S ?Negative ? Negative ? --ADDITIONAL INFORMATION-------- ?This test was developed and its performance characteristics ?determined by [facility] in a manner consistent with CLIA ?requirements. This test has not been cleared or approved by ?the U.S. Food and Drug Administration. ??ROLLER CHECKER-Tr, S ? Negative ? Negative ? --ADDITIONAL INFORMATION-------- ?This test was developed and its performance characteristics ?determined by [facility] in a manner consistent with CLIA ?requirements. This test has not been cleared or approved by ?the U.S. Food and Drug Administration. ??Septin-7 IFA, S ? Negative ? Negative ? --ADDITIONAL INFORMATION-------- ?This test was developed and its performance characteristics ?determined by [facility] in a manner consistent with CLIA ?requirements. This test has not been cleared or approved by ?the U.S. Food and Drug Administration. ?Test Performed by: ?[facility] ?[address] [place] [address] ?Chief Nurse: Hermann Parrish M.D. Ph.D.; CLIA# [id number] [facility] Blood Venous Draw / Unknown 01/04/2023 3:42 PM EST 01/09/2023 10:39 AM EDT Narrative Resulting Agency Comment Spec In Lab Sanju Martinez MD LAB SEND OUT ORDERAB LES [facility] [place] [address] * Differential, Automated (01/04/2023 3:42 PM EST) Neutrophil % 47.4 % [facility] Neutrophil Absolute 3.42 1.70 - 6.10 x10(3)/[facility] Lymph % 39.2 % [facility] Lymphocytes Abs 2.8 0.9 - 3.2 x10(3)/[facility] Monocyte % 10.0 % [facility] Monocyte Abs 0.7 0.3 - 0.9 x10(3)/[facility] Eos % 2.6 % [facility] Eosinophils Abs 0.2 0.0 - 0.4 x10(3)/[facility] Basophil % 0.7 % [facility] Baso Absolute 0.0 0.0 - 0.1 x10(3)/[facility] Immature Gran % 0.10 % [facility] Comment: Immature granulocytes(IG's)percentage and absolute count will include metamyelocytes, myelocytes, and promyelocytes. Blood smears from CBCs yielding IG's will be scanned manually for concordance. If this scan disagrees with the automated IG or if promyelocytes are noted, a manual differential will be performed. Immature Gran Absolute 0.01 0.00 - 0.04 x10(3)/[facility] Blood 01/04/2023 3:42 PM EST 01/04/2023 3:47 PM EST Narrative Resulting Agency Comment Spec In Lab Sanju Martinez MD HEMATOLOGY ORDERABLE S Performing Organization Address City/State/[facility] Co de Phone Number [facility] [place] [address] * (ABNORMAL) Hemogram (01/04/2023 3:42 PM EST) White Blood Cell 7.2 4.0 - 9.5 x10(3)/mc L [facility] Red Blood Cell 3.90(L) 4.00 - 5.21 x10(6)/mc L [facility] Hemoglobin 11.6(L) 11.7 - 15.5 g/dL [facility] Hematocrit 36.3 35.7 - 45.8 % [facility] Mean Cell Volume 93.1 82.6 - 94.4 fL [facility] Mean Cell Hemoglobin 29.7 27.1 - 32.0 pg [facility] Mean Cell Hemoglobin Concentration 32.0 31.7 - 35.0 g/dL [facility] Platelet 306 145 - 357 x10(3)/mc L [facility] RDW Standard Deviation 41.8 37.0 - 46.0 fL [facility] RDW coefficient of variation 12.3 11.5 - 14.1 % [facility] Mean Platelet Volume 9.1 7.6 - 12.[address] [facility] NRBC% auto 0.0 % [facility] NRBC Absolute 0.000 0.000 - 0.000 x10(3)/mc L [facility] Blood 01/04/2023 3:42 PM EST 01/04/2023 3:47 PM EST Narrative Resulting Agency Comment Spec In Lab Sanju Martinez MD HEMATOLOGY ORDERABLE S Performing Organization Address [facility] de Phone Number [facility] [place] [address] * (ABNORMAL) Vitamin B1, whole blood (01/04/2023 3:42 PM EST) Vit B1 Lvl Wb (FEBRUARY) 233(H) 70 - 180 nmol/L [facility] Comment: ADDITIONAL INFORMATION This test was developed and its performance characteristics determined by [facility] in a manner consistent with CLIA requirements. This test has not been cleared or approved by the U.S. Food and Drug Administration. Test Performed by: [facility] - [address] [address] Chief Nurse: Hermann Parrish M.D. Ph.D.; CLIA# [id number] Blood 01/04/2023 3:42 PM EST 01/05/2023 8:47 AM EST Narrative Resulting Agency Comment Spec In Lab Sanju Martinez MD LAB SEND OUT ORDERAB LES Performing Organization Address [facility] Co de Phone Number [facility] [place] [address] * Pyruvic acid (01/04/2023 3:42 PM EST) Pyruvic Acid (mg/dL) (FEBRUARY) 0.11 0.08 - 0.16 mmol/L [facility] Comment: Test Performed by: [facility] - [address] [address] Chief Nurse: Hermann Parrish M.D. Ph.D.; CLIA# [id number] Blood 01/04/2023 3:42 PM EST 01/04/2023 4:22 PM EST Narrative Resulting Agency Comment Spec In Lab Authorizing Provider Result Jaqueline Martinez MD LAB SEND OUT ORDERAB LES [facility] [place] [address] * Lactate, plasma (01/04/2023 3:42 PM EST) [facility] Lactic Acid 1.2 0.5 - 2.2 mmol/L [facility] Blood 01/04/2023 3:42 PM EST 01/04/2023 3:46 PM EST Narrative Resulting Agency Comment Spec In Lab Sanju Martinez MD CHEMISTRY ORDERABLES Performing Organization Address City/[facility]/ZIP Co de Phone Number [facility] [place] [address] * Vitamin D, 25-Hydroxy (01/04/2023 3:42 PM EST) Vitamin D Total 25 OH 37 21 - 100 ng/mL [facility] Vit D Interp Sufficient [facility] Blood 01/04/2023 3:42 PM EST 01/04/2023 3:47 PM EST Narrative Resulting Agency Comment Spec In Lab Sanju Martinez MD CHEMISTRY ORDERABLES Performing Organization Address City/[facility]/ZIP Co de Phone Number [facility] [place] [address] * Folate, serum (01/04/2023 3:42 PM EST) Folate >20.0 4.8 - 24.2 ng/mL [facility] Blood 01/04/2023 3:42 PM EST 01/04/2023 3:47 PM EST Narrative Resulting Agency Comment Spec In Lab Sanju Martinez MD CHEMISTRY ORDERABLES Performing Organization Address [facility] Co de Phone Number [facility] [place] [place] [address] * Rheumatoid factor, quant (01/04/2023 3:42 PM EST) Pathologist [facility] Rheumatoid Factor <10 <=14 IU/mL [facility] Blood 01/04/2023 3:42 PM EST 01/04/2023 3:47 PM EST Narrative Resulting Agency Comment Spec In Lab Sanju Martinez MD CHEMISTRY ORDERABLES Performing Organization Address [facility] Co de Phone Number [facility] [place] [address] * Cardiolipin Antibody Screen (01/04/2023 3:42 PM EST) Pathologist [facility] Cardiolipin Antibody IgG 1.2 <=9.9 GPL-U/mL [facility] Cardiolipin Antibody IgM 2.1 <=9.9 MPL-U/mL [facility] Blood 01/04/2023 3:42 PM EST 01/05/2023 7:22 AM EST Narrative Resulting Agency Comment Spec In Lab Sanju Martinez MD IMMUNOLOGY ORDERABLE S Performing Organization Address [facility] Co de Phone Number [facility] [place] [address] * T4 Total (01/04/2023 3:42 PM EST) Pathologist [facility] T4 Total 5.6 5.3 - 11.6 mcg/dL [facility] Comment: Reference Interval (mcg/dL): Females: ??First Trimester: 6.3-13.5 ??Second Trimester: 7.1-14.3 ??Third Trimester: 6.9-14.1 Blood 01/04/2023 3:42 PM EST 01/04/2023 3:47 PM EST Narrative Resulting Agency Comment Spec In Lab Sanju Martinez MD CHEMISTRY ORDERABLES Performing Organization Address [facility]/ZIP Co de Phone Number [facility] [place] [address] * Cortisol (01/04/2023 3:42 PM EST) Cortisol 7.2 mcg/dL [facility] Comment: Reference ranges: ??AM (6-10am): ??4.8-19.5 mcg/dL ??PM (4-8pm) : ??2.5-11.9 mcg/dL Blood 01/04/2023 3:42 PM EST 01/04/2023 3:47 PM EST Narrative Resulting Agency Comment Spec In Lab Sanju Martinez MD CHEMISTRY ORDERABLES Performing Organization Address City/[facility] Co de Phone Number [facility] [place] [address] * Protein Electrophoresis, serum (01/04/2023 3:42 PM EST) Total Prot Electrophoresis 6.4 6.1 - 8.0 g/dL [facility] Albumin Electrophoresis 4.22 3.20 - 5.20 g/dL [facility] Alpha 1 Globulin 0.10 0.10 - 0.30 g/dL [facility] Alpha 2 Globulin 0.61 0.40 - 0.90 g/dL [facility] Beta Globulin 0.73 0.50 - 1.00 g/dL [facility] Gamma Globulin 0.74 0.50 - 1.30 g/dL [facility] M1 Band None Detected None Detected [facility] Blood 01/04/2023 3:42 PM EST 01/04/2023 3:47 PM EST Narrative Resulting Agency Comment Spec In Lab Sanju Martinez MD CHEMISTRY ORDERABLES Performing Organization Address [facility]/ZIP Co de Phone Number [facility] [place] [address] * GAYLE Antibody Screen (01/04/2023 3:42 PM EST) GAYLE Ab Screen Negative Negative [facility] Comment: This antinuclear antibody (GAYLE) screen is a qualitative test performed using a fluoroenzyme immunoassay on the Phadia 250 analyzer. This screen is designed to detect antibodies to U1RNP, SS-A/Ro, SS-B/La, centromere B, Scl-70, Maryana-1, and Sm(Wing) proteins in serum samples. Antibodies to other nuclear antibodies will not be detected with this assay. This GAYLE screen is also performed in concert with a quantitative for IgG antibodies to dsDNA. Please note that as of 08/23/2022 that this testing is performed by the Special [facility] Laboratory at [facility]. This change in testing location is associated with a change is testing method and reference intervals. Please review the results of this test in association with the posted reference intervals. dsDNA Ab <0.6 <=15.0 IU/mL [facility] Comment: <10 negative 10-15 equivocal >15 positive This dsDNA antibody result was generated using a fluoroenzyme immunoassay on the Phadia 250 analyzer. This quantitative test is designed to detect IgG antibodies directed against double stranded DNA in human serum. The presence of antibodies that recognize dsDNA is a highly specific marker for systemic lupus erythematosus. Please note that as of 08/23/2022 that this testing is performed by the [facility] Laboratory at [facility]. This change in testing location is associated with a change is testing method and reference intervals. Please review the results of this test in association with the posted reference intervals. Blood 01/04/2023 3:42 PM EST 01/05/2023 7:22 AM EST Narrative Resulting Agency Comment Spec In Lab Sanju Martinez MD LAB SEND OUT ORDERAB LES Performing Organization Address City/[facility]/ZIP Co de Phone Number [facility] [place] [address] * Tissue transglutaminase, IgA (01/04/2023 3:42 PM EST) TTG IgA Ab 0.4 <=10.0 u/ml [facility] Comment: Negative: ??<7 units/mL Indeterminate: 7-10 units/mL Positive: ??>10 units/mL Blood 01/04/2023 3:42 PM EST 01/05/2023 7:22 AM EST Narrative Resulting Agency Comment Spec In Lab Sanju Martinez MD IMMUNOLOGY ORDERABLE S Performing Organization Address [facility] Co de Phone Number [facility] [place] [address] * Lyme IgG & IgM Antibody (01/04/2023 3:42 PM EST) Pathologist [facility] Lyme Antibody Neg Neg [facility] Blood 01/04/2023 3:42 PM EST 01/05/2023 12:48 AM EST Narrative Resulting Agency Comment Spec In Lab Sanju Martinez MD IMMUNOLOGY ORDERABLE S Performing Organization Address [facility] de Phone Number [facility] [place] [address] * Sedimentation rate (01/04/2023 3:42 PM EST) [facility] Sedimentation Rate Automated 8 2 - 39 mm/hr [facility] Comment: Effective October 09, 2019 new capillary photometric technology has resulted in a change in reference ranges. It is recommended that each ESR result be reviewed with its own age appropriate reference range. Blood 01/04/2023 3:42 PM EST 01/04/2023 3:47 PM EST Narrative Resulting Agency Comment Spec In Lab Sanju Martinez MD HEMATOLOGY ORDERABLE S Performing Organization Address [facility] de Phone Number [facility] [place] [address] * Magnesium (01/04/2023 3:42 PM EST) [facility] Magnesium 0.91 0.69 - 1.07 mmol/L [facility] Blood 01/04/2023 3:42 PM EST 01/04/2023 3:47 PM EST Narrative Resulting Agency Comment Spec In Lab Sanju Martinez MD CHEMISTRY ORDERABLES Performing Organization Address [facility] Co de Phone Number [facility] [place] [address] * Vitamin B12 (01/04/2023 3:42 PM EST) Vitamin B12 410 232 - 1,245 pg/mL [facility] Blood 01/04/2023 3:42 PM EST 01/04/2023 3:47 PM EST Narrative Resulting Agency Comment Spec In Lab Sanju Martinez MD CHEMISTRY ORDERABLES Performing Organization Address [facility] de Phone Number [facility] [place] [address] * TSH (01/04/2023 3:42 PM EST) Pathologist [facility] Thyroid Stimulating Hormone 1.41 0.27 - 4.20 mcIU/mL [facility] Comment: Reference Interval (mcIU/mL): Females: ??First Trimester: 0.23-3.88 ??Second Trimester: 0.22-3.90 ??Third Trimester: 0.44-4.66 Blood 01/04/2023 3:42 PM EST 01/04/2023 3:47 PM EST Narrative Resulting Agency Comment Spec In Lab Sanju Martinez MD CHEMISTRY ORDERABLES Performing Organization Address [facility] Co de Phone Number [facility] [place] [address] * (ABNORMAL) Hepatic Function Panel (01/04/2023 3:42 PM EST) Protein, Total 7.0 6.1 - 8.0 g/dL [facility] Albumin 4.4 3.2 - 5.2 g/dL [facility] Aspartate Aminotransferase 14 0 - 30 unit/L [facility] Alanine Aminotransferase 22 0 - 30 unit/L [facility] Alkaline Phosphatase 100 35 - 105 unit/L [facility] Bilirubin, Total 1.8(H) 0.2 - 1.3 mg/dL [facility] Bilirubin, Direct 0.3 0.0 - 0.3 mg/dL [facility] Blood 01/04/2023 3:42 PM EST 01/04/2023 3:47 PM EST Narrative Resulting Agency Comment Spec In Lab Sanju Martinez MD CHEMISTRY ORDERABLES [facility] [place] [address] * (ABNORMAL) Basic Metabolic Panel (non-fasting) (01/04/2023 3:42 PM EST) Glucose 74 65 - 199 mg/dL [facility] Comment:Diabetes: >=200 mg/d L plus symptoms Blood Urea Nitrogen 20(H) 8 - 18 mg/dL [facility] Creatinine 0.98 0.70 - 1.20 mg/dL [facility] Sodium 144 135 - 145 mmol/L [facility] Potassium 4.1 3.5 - 5.0 mmol/L [facility] Comment: Please note: ??Patients with WBC >100,000 may have falsely elevated Potassium levels. ??For accurate Potassium quantification in these patients send serum separator tube (gold top) for subsequent determinations. ??Contact the Clinical Chemistry Laboratory if there are any questions. Chloride 106 98 - 107 mmol/L [facility] Carbon Dioxide 28 22 - 31 mmol/L [facility] Anion Gap 10 5 - 15 mmol/L [facility] Calcium 9.0 8.5 - 10.5 mg/dL [facility] Est Glomerular Filtration Rate 66 >=60 mL/min/1. 73 m?? [facility] Comment: This patient's estimated GFR was [...] In Lab Sanju Martinez MD CHEMISTRY ORDERABLES Performing Organization Address City/State/[facility] Co de Phone Number [facility] [place] [address] documented in this encounter Visit Diagnoses Diagnosis Ataxia Lack of coordination Encephalopathy Encephalopathy, unspecified Anxiety Anxiety state, unspecified Asthma, unspecified asthma severity, unspecified whether complicated, unspecified whether persistent Thrombophlebitis Phlebitis and thrombophlebitis of unspecified site Irritable bowel syndrome, unspecified type Endometrial cancer Malignant neoplasm of corpus uteri, except isthmus Carpal tunnel syndrome, unspecified laterality Chronic neck pain Cervicalgia Hypercoagulable state Primary hypercoagulable state Ataxia Lack of coordination Encephalopathy Encephalopathy, unspecified documented in this encounter Care Teams Special Delivery Worker Relationship Specialty Start Date End Date Elly Ling, SHINGLES ROOFER [place] [address] PCP - General Family Medicine 10/19/22 documented as of this encounter
--- OUTSIDE RECORDS SUMMARY | 2024-06-24 02:28 | XMS_ITS | Encounter Summary ---
Author Organization [facility] [place] [address] Care Team Providers Care Azure Developer Name Role Phone Elly Ling APRN Primary Care Provider [phone] Encounter Details Date Type Department Care Team (Latest Contact Info) Description 09/19/2023 Travel Social History Tobacco Use Types Packs/Day [...] on filedocumented in this encounter Care Teams Azure Developer Relationship Specialty Start Date End Date El[place] [address] PCP - General Family Medicine 10/19/22 documented as of this encounter
--- OUTSIDE RECORDS SUMMARY | 2024-06-24 02:28 | XMS_ITS | Encounter Summary ---
Author Organization [facility] [place] [address] Care Team Providers Care Director Of Family Service Center Name Role Phone Elly Ling ELKIN Primary Care Provider [phone] Reason for Referral * Psychiatric (Routine) - Closed Specialty Diagnoses / Procedures Referred By Joao t Referred To Contact Psychiatry Diagnoses Other amnesia Gifty Lamas MD [facility] [address] [place] [address] Barney Mg, PhD [facility] [place] [address] Referral ID Status Reason Start Date Expiration Date V isits Requested Visits Authorized [id number] Closed Consult, Test & Treat PCP Updated and/or Approved 11/28/2022 11/28/2023 6 6 Encounter Details Date Type Department Care Team (Late st Contact Info) Description 11/28/2022 Transcribe Orders eDH Incoming Referrals [phone] Gifty Lamas MD [facility] [address] [place], [place] [id number] Other amnesia Social History Tobacco Use Types Packs/Day Years Used Date Smoking Tobacco: Never Assessed Sex and Gender Information Value Date Recorded Sex Assigned at Not on file Gender Identity Not on file Sexual Orientation Not on file documented as of this encounter Plan of Treatment Scheduled Referrals Name Type Priority Associated Diagnoses Order Schedule Referral to Psychiatry Outpatient Referral Routine Other amnesia Ordered: 11/28/2022 documented as of this encounter Visit Diagnoses Diagnosis Other amnesia documented in this encounter Care Teams Director Of Family Service Center Relationship Specialty Start Date End Date Elly Ling, MIXING AND MOLDING MACHINE OPERATOR [address] [place] [address] PCP - General Family Medicine 10/19/22 documented as of this encounter
--- OUTSIDE RECORDS SUMMARY | 2024-06-24 02:28 | XMS_ITS | Encounter Summary ---
Author Organization [facility] [place] [address] Care Team Providers Care Backend Tester Name Role Phone Elly Ling APRN Primary Care Provider [phone] Encounter Details Date Type Department Care Team (Latest Contact Info) Description 01/04/2023 Travel Social History Tobacco Use Types Packs/Day [...] on filedocumented in this encounter Care Teams Backend Tester Relationship Specialty Start Date End Date [place] [address] PCP - General Family Medicine 10/19/22 documented as of this encounter
--- OUTSIDE RECORDS SUMMARY | 2024-06-24 02:28 | XMS_ITS | Encounter Summary ---
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 books such as Managing Pain Before it Manages You by Emerald Hayden M.D., Ph.D., M.P.H. Given potential cognitive and general health impact of poor sleep, following general sleep hygiene tips may be beneficial: No caffeine 4-6 hours before bedtime. A light snack but no heavy meal or food around bedtime. No vigorous exercise 3-4 hours before bedtime Minimize noise, light, and excessive temperature during sleep time. Get out of bed if you cannot fall asleep or return to sleep within 10-20 minutes. Engage in a calming/soothing activity until you feel sleepy again. Then return to bed and try to fall asleep. Repeat as needed. Going to bed and waking up at the same time each day No naps during the day. Avoid clock watching Some strategies that may help with coming up with a given word when having difficulty: Take a short break, sometimes it will come to you. Try to think of a related word (e.g., that has the same meaning) Try thinking about characteristics of the word (e.g., when trying to find the word ???cellphone,?? thinking ???used to call people, mine is black and has a protective case.?? Try visualizing the word. When trying to remember something new, the more the information is actively processed, the easier it will be to remember and retrieve it later. One method for this goes by the acronym GULP: G= Get it (focus on the information/task at hand instead of thinking of other things). U= Use it (repeat, practice, write it down) L= Link it (associate information, e.g., how does a new acquaintance Aric remind you of your cousin Aric, etc) P = Picture it (to emphasize multimodal processing, picture the information when you review it, e.g., visualize where you placed your wallet) Important information, such as appointments and medication dosage times, should be written down, ideally in a well-organized notebook. Alternatively, use of an electronic device to alert when tasks need to be completed can be helpful. Breaking complex problems into simpler component parts, organizing these sequentially, and tacklingthem one at a time may be helpful. Taking occasional breaks during problem solving to review progress towards goals and adjust her strategy accordingly may also prove helpful. Activity pacing and other energy conservation strategies (if is not already doing so) may help maximize functioning while minimizing fatigue. Some examples include: Creating a list of activities that typically produce fatigue and rank them according to whether these tasks are necessary, desirable, transferable, or unnecessary. Simplify tasks and set realistic goals. Set a time limit for activities followed by at least a brief period of rest. This time limit shouldoccur before significant fatigue occurs. Schedule difficult tasks for the times of day feel at your best. Allow additional time to complete tasks. Plan activities ahead of time and space them out throughout the day. Rest, at least briefly, before and after activities. Avoid extreme physical activity. Ask for help from others as needed. Thank you for referring your patient for neuropsychological evaluation. If you would like additional information, please do not hesitate to contact us at . Lisa Sampson PsyD Postdoctoral Fellow in Neuropsychology Bomb Squad Officerhand splitter A postdoctoral fellow in neuropsychology was involved in test administration, interpretation, and report development. The interpretation and integration of pertinent clinical information found in this report was directed and verified by the supervising neuropsychologist/licensed clinical psychologist. 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
--- OUTSIDE RECORDS SUMMARY | 2024-06-24 02:28 | XMS_ITS | Encounter Summary ---
Author Organization [facility] Address [facility] Marcia johnson [place] [id number] Care Team Providers Care Data Warehouse Manager Name Role Phone Unknown Primary Care Provider Unavailabl e Reason for Referral * Consultation (Routine) - Closed Specialty Diagnoses / Procedures Referred By Contac t Referred To Contact Neurology Diagnoses Encephalopathy, unspecified Unspecified nystagmus Ataxia, unspecified Other amnesia Gifty Lamas MD [facility] [address] [place] [address] Sanju Martinez MD [facility] [place] [address] Referral ID Status Reason Start Date Expiration Date V isits Requested Visits Authorized [id number] Closed Second Opinion 10/05/2022 10/05/2023 1 1 Encounter Details Date Type Department Care Team (Late st Contact Info) Description 10/05/2022 Transcribe Orders eDH Incoming Referrals [phone] Gifty Lamas MD [facility] [address] [place], [place] [id number] Encephalopathy, unspecified; Unspecified nystagmus; Ataxia, unspecified; Other amnesia Social History Tobacco Use Types Packs/Day Years Used Date Smoking Tobacco: Never Assessed Sex and Gender Information Value Date Recorded Sex Assigned at Not on file Gender Identity Not on file Sexual Orientation Not on file documented as of this encounter Plan of Treatment Scheduled Referrals Name Type Priority Associated Diagnoses Orde r Schedule Referral to Neurology Outpatient Referral Routine Encephalopathy, unspecified Unspecified nystagmus Ataxia, unspecified Other amnesia Ordered: 10/05/2022 documented as of this encounter Visit Diagnoses Diagnosis Encephalopathy, unspecified Unspecified nystagmus Ataxia, unspecified Other amnesia documented in this encounter Care Teams Data Warehouse Manager Relationship Specialty Start Date End Date Unknown None PCP - General 09/28/14 10/18/22 documented as of this encounter
--- NOTE | 2024-06-24 11:40 | DI.MRI_ITS ---
Exam(s) MR BRAIN WO/W EXAM: MR BRAIN WO/W CLINICAL HISTORY: annual monitoring cerebral meningioma,d32.0 TECHNIQUE: Multiplanar multisequence MRI of the brain was performed. Both noninfused and contrast i nfused sequences were performed. IV Contrast injected was 19 cc Dotarem. COMPARISON: MR MR BRAIN WO/W from 05/24/2023 FINDINGS: CEREBRAL PARENCHYMA: No evidence of intracranial hemorrhage, new mass effect nor shift of midline str ucture. The previously described right frontal convexity meningioma exhibits slight increase in size , measuring 11 mm AP x 7 mm wide x 9 mm craniocaudal. There is no significant effacement of adjacent sulci nor intra-axial brain edema. No extraaxial fluid collections. Ventricles are not enlarged nor shifted. There is no significant focal signal abnormality in the cerebellar hemispheres nor within the luis, m idbrain, and thalami. There is no abnormal signal abnormality in the periventricular white matter. DWI: No areas of restricted diffusion to suggest acute ischemic event. SWI: No microhemorrhages evident. There are no ring enhancing intra-axial lesions in the brain. There are no new additional meningeal based enhancing lesions. PITUITARY GLAND: No mass nor parasellar abnormality. No obvious abnormality in the cavernous sinuses. FLOW VOIDS: The expected flow void are noted. No evidence of obvious aneurysm nor obvious vascular ma lformation. PARANASAL SINUSES: The visualized paranasal sinuses appear unremarkable. ORBITS: No obvious abnormal findings. IMPRESSION: 1. Compared to the prior MRI of April 2023 there has been minimal increase in size of the right fronta l convexity meningioma. Present measurements are 11 mm AP x 7 mm wide x 9 mm craniocaudal. There is no prominent mass effect and no evidence of adjacent brain edema. 2. No new abnormal enhancing intracranial findings. There are no ring enhancing lesions in the brain and there are no new abnormal enhancing meningeal lesions. DATA REPOSITORY:
[2024-06-24 11:44] LABS: Ferritin 112 ng/mL (8-252)
== END 2024-06-24 02:34 ==
PROVIDERS: PCP Nurse Practitioner Family; Visit Provider Psychiatry & Neurology Neurology
DX: D32.0 Benign neoplasm of cerebral meninges (principal); E61.1 Iron deficiency; G25.81 Restless legs syndrome
CPT/HCPCS: 36415; 70553; 82728

== ENCOUNTER → 2024-07-16 10:54 | Outpatient (BNVA) | payer MEDICARE, MEDICAID, SELFPAY | PROVIDERS: PCP Nurse Practitioner Family; Visit Provider Psychiatry & Neurology Neurology | DX: G43.009 Migraine without aura, not intractable, without status migrainosus (principal); G89.29 Other chronic pain | CPT/HCPCS: 99214 ==

== ENCOUNTER 2024-09-17 15:13 | Outpatient (REF) | payer MEDICARE, MEDICAID, SELFPAY ==
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
--- OUTSIDE RECORDS SUMMARY | 2024-09-17 15:16 | XMS_ITS | Referral Summary ---
Author Organization [facility] Address [address] [place] [address] Care Team Providers Care Director Of Strategic Sourcing Name Role Phone Elly Ling MEDICAL TRANSCRIPTION Primary Care Provider [phone] Allergies Active Allergy Reactions Criticality Noted Date [...] syndrome),GERD (gastroesophage al reflux disease) Instill 1 Crumpler into both nostrils daily. 1 Bottle 5 [...] colitis 04/18/2021 DM2 (diabetes mellitus, type 2) ([facility]) 2020 Enterococcus UTI 04/18/2021 Hypomagnesemia 04/18/2021 Hypokalemia 04/18/2021 Hypophosphatemia 04/18/2021 Hemorrhoids 04/18/2021 Chronic pain syndrome 05/06/2014 Left knee DJD 04/21/2014 Pes anserinus bursitis of left knee 08/05/2013 Postoperative infection 07/17/2013 Endometrial cancer ([facility]) 07/10/2013 Overview (07/10/2013): BRITTANY with BSO [...] Lumbosacral spondylosis without myelopathy 05/22 Hypercoagulable state ([facility]) 07/01/2010 Overview (07/01/2010): right lower extremity DVT in the setting of childbirth, 1983 a. Thrombosis testing 03/25/2010, antithrombin function 88 , cardiolipin antibodies IgG, IgM negative, protein C 116, D-dimer less than 200, dilute viper venom time 32.8. Factor VIII 110, factor V Leiden negative, prothrombin gene 18362C negative, PTT 32. Protein S 118,?? b.?? [...] Index 33.01 2021 1030 EDT Functional Status * Are you deaf or do you have serious difficulty hearing? Answer Date of Assessment Author No 2021 18:05 Araseli Rhodes RN * Are you blind or do you have serious difficulty seeing, even when wearing glasses? Answer Date of Assessment Author No 2021 18:05 Araseli Rhodes RN * Do you have serious difficulty walking or climbing stairs? (5 years old or older) Answer Date of Assessment Author No 2021 18:05 Araseli Rhodes RN * Do you have difficulty dressing or bathing? (5 years old or older) Answer Date of Assessment Author No 2021 18:05 Araseli Rhodes RN * Because of a physical, mental, or emotional condition, do you have difficulty doing errands alone such as visiting a doctor's office or shopping? (15 years old or older) Answer Date of Assessment Author No 2021 18:05 Araseli Rhodes RN Mental Status * Because of a physical, mental, or emotional condition, do you have serious difficulty concentrating, remembering, or making decisions? (5 years old or older) Answer Entry Date Author No 2021 18:05 EDT Araseli Palomares RN Plan of Treatment Not on file Goals Goal Patient Goal Type Associated Problems Recent Progress Patient-Stated? Author Blood Pressure < 130/80 Blood Pressure Asthma 133/57(2020 14:39 EDT) No Emily Gibson, REGULATOR INSPECTOR LDL < 130 Result Component Hyperlipidemia 143( 4 11:54 EDT) No Emily Gibson LPN Procedures Procedure Name Priority Date/Time Associated Diagnosis Comments DRUG SCREEN 6 Routine 04/22/2014 12:47 EDT Fibromyalgia Arthropathy Medication management Cervical spondylosis without myelopathy Pain of right leg HEPATITIS C AB W REFLEX TO HCV RNA BY PCR Routine 01/23/2013 12:44 EDT Psoriatic arthropathy ([facility]) Encounter for long-term (current) use of other [...] urine. Cocaine Metabolites, Ur Negative screen. [facility] Comment: Confirmation testing available upon request. Suitable for medical purposes only. Will not detect all drugs within class. Cutoff = 300 ng/ml Specimen type is urine. Urine specimen (specimen) URINE / Unknown 04/22/2014 12:47 EDT 04/22/2014 18:13 EDT us Remedios Mehta MD URINALYSIS ORDERABLES Fin al Result Performing Organization Address [facility] Co de Phone Number [facility] [address] [place] [address] * HEPATITIS C ANTIBODY (01/23/2013 12:44 EDT) Hepatitis C Ab Negative [facility] Comment:Reference Range: Neg ative Blood specimen (specimen) 01/23/2013 12:44 EDT 01/23/2013 13:08 EDT Yovana Callejas MD CHEMISTRY & BLOOD GAS OR DERABLES Final Result Performing Organization Address [facility] de Phone Number [facility] [address] [place] [address] * COLONOSCOPY (08/17/2011) Colonoscopy wnl POINT OF CARE Colonoscopy, External POINT OF CARE Anatomical Region Laterality Modality Endoscopy Historical Provider GI PROCEDURE ORDERABLES F inal Result from Last 3 Months or Most Recently Relevant to Health Maintenance Insurance MEDICAID [place] [facility] MEDICARE [facility] OOS Advance Directives For more information, please contact: [phone] Documents on File Type Date Recorded Patient Bi Solutions Architect Expl anation Advance Directive 06/11/2013 7:07 * [...] Comments 04/15/2010 16:54 04/20/2010 18:39 Care Teams Director Of Strategic Sourcing Relationship Specialty Start Date End Date El[place] [address] PCP - General Family Medicine - Primary Care 05/30/22
--- OUTSIDE RECORDS SUMMARY | 2024-09-17 15:16 | XMS_ITS | Encounter Summary ---
Author Organization [facility] Address [address] [place] [address] Care Team Providers Care Food Or Baggage Handling Rampman Name Role Phone Elly Ling VOCATIONAL REHABILITATION CONSULTANT Primary Care Provider [phone] Encounter Details Date Type Department Care Team (Late st Contact Info) Description 06/15/2022 Lab Requisition [facility] Pathology & Laboratory Medicine - [facility] [address] [place] [address] Felipa Vee MD [address] [place] [address] [address], [place] [id number] Encounter for screening for malignant neoplasm of [...] documented as of this encounter Functional Status * Are you deaf or [...] Date of Assessment Author No 2021 18:05 Araslei Rhodes RN * Do you have difficulty [...] Author No 2021 18:05 Araseli Rhodes RN documented as of this encounter Mental Status * Because of a physical, mental, or emotional condition, do you have serious difficulty concentrating, remembering, or making decisions? (5 years old or older) Answer Entry Date Author No 2021 18:05 Araseli Rhodes RN documented in this encounter Plan of [...] explore management options, if applicable. 06/20/2022 12:08 [facility] Final Diagnosis A. STOMACH, ANTRUM, [...] for intestinal metaplasia and dysplasia. 06/20/2022 12:08 [facility] Attestation There was significant resident/fellow involvement in the diagnostic evaluation of this case. By the signature below, the attending physician certifies that they have personally conducted a gross and/or microscopic examination of the described specimens and rendered or confirmed the above diagnosis. 06/20/2022 12:08 [facility] at 1208 Clinical History Colon ca screening, H/O polyps, GERD 06/20/2022 12:08 [facility] Gross Description A. Received in [...] C1. EDMUND HERNANDEZ 06/16/2022 8:53 06/20/2022 12:08 [facility] Resident/Jax w: Ildefonso Holland MD 06/20/2022 12:08 EDT [facility] Performing Lab [facility] 12:08 EDT [facility] Scanned Images 06/20/2022 12:08 EDT [facility] Tissue ENTIRE ESOPHAGUS / Unknown 06/15/2022 12:00 EDT 06/15/2022 22:05 EDT Tissue specimen (specimen) STOMACH STRUCTURE / Unknown 06/15/2022 12:00 EDT 06/15/2022 22:05 EDT Tissue specimen (specimen) ESOPHAGEAL STRUCTURE / Unknown 06/15/2022 12:00 EDT 06/15/2022 22:05 EDT us Felipa Vee MD PATHOLOGY ORDERABLES Fin al Result [facility] [address] [place] [address] documented in this encounter Visit Diagnoses Diagnosis Encounter for screening for malignant neoplasm of colon Special screening for malignant neoplasms, colon Personal history of colonic polyps Unspecified hemorrhoids Gastro-esophageal reflux disease without esophagitis Esophageal reflux documented in this encounter Care Teams Food Or Baggage Handling Rampman Relationship Specialty Start Date End Date Elly Ling NP [facility] [place] [address] PCP - General Family Medicine - Primary Care 05/30/22 documented as of this encounter
--- OUTSIDE RECORDS SUMMARY | 2024-09-17 15:16 | XMS_ITS | Encounter Summary ---
Author Organization [facility] Address [address] [place] [address] Care Team Providers Care Sheet Pile Hammer Operator Name Role Phone Elly Ling SOLAR APPLICATIONS DEVELOPMENT ENGINEER Primary Care Provider [phone] Encounter Details Date Type Department Care Team (Late st Contact Info) Description 09/09/2022 Lab Requisition [facility] Pathology & Laboratory Medicine - [facility] [address] [place] [address] Outr Resulting Lab, Provider Social History Tobacco [...] GAYLE Interpretation Positive(A) Negative 09/12/2022 13:[address] [facility] GAYLE Titer and Pattern 1 1:80 Speckled 09/12/2022 13:[address] [facility] Blood VENOUS BLOOD / Unknown 09/09/2022 12:25 EST 09/09/2022 21:32 EST [address] [facility] - 09/12/2022 13:45 EST Results were obtained with the INOVA NOVA Lite HEp-2 GAYLE Kit by indirect immunofluorescence. us Provider Outr Resulting Lab IMMUNOLOGY AND SEROL OGY ORDERABLES Final Result Performing Organization Address City/State/[facility] Co de Phone Number [facility] [address] [place] [address] documented in this encounter Visit Diagnoses Not on filedocumented in this encounter Care Teams Sheet Pile Hammer Operator Relationship Specialty Start Date End Date Elly Ling, HEIDE [facility] [place] [address] PCP - General Family Medicine - Primary Care 05/30/22 documented as of this encounter
--- OUTSIDE RECORDS SUMMARY | 2024-09-17 15:16 | XMS_ITS ---
Author Organization Unknown ALLERGIES AND ADVERSE REACTIONS No information ASSESSMENT No information CHIEF COMPLAINT No information MEDICATIONS No information OBJECTIVE DATA No information PHYSICAL EXAMINATION No information TREATMENT PLAN Planned Care Start Date Provider Encounter for Check-up [id number] PROBLEMS No information RESULTS No information REVIEW OF SYSTEMS No information SUBJECTIVE DATA No information VITAL SIGNS No information
--- OUTSIDE RECORDS SUMMARY | 2024-09-17 15:17 | XMS_ITS | Encounter Summary ---
Author Organization [facility] Address [address] [place] [address] Care Team Providers Care Line Server Name Role Phone Remedios Mehta MD Primary Care Provider [phone] Reason for Visit * Reason Onset Date Comments Results 05/09/2014 Encounter Details Date Type Department Care Team (Late st Contact Info) Description 05/09/2014 Telephone [facility] Interventional Pain [address] [place] [address] Jaimie Byrne RN Results Social History Tobacco Use Types Packs/Day Years Used Date Smoking Tobacco: Former Cigarettes 1 20 0 04/23/1976 - 04/23/1996 Smokeless Tobacco: Never Comments:quit 20+ yr ago Alcohol Use Standard Drinks/Week Comments Yes 0 (1 standard drink = 0.6 oz pur e alcohol) very occasional Comments No Sex and Gender Information Value Date Recorded Sex Assigned at Not on file Legal Sex Female 17:25 EST Gender Identity Female 2021 11:19 EDT Sexual Orientation Not on file documented as of this encounter Mental Status * Because of a physical, mental, or emotional condition, do you have serious difficulty concentrating, remembering, or making decisions? (5 years old or older) Answer Entry Date Author Yes 07/17/2013 23:00 EDT Phill Live RN documented in this encounter Miscellaneous Notes * [...] filedocumented in this encounter Care Teams Line Server Relationship Specialty Start Date End Date Remedios Mehta MD [address] [place] [phone] PCP - General 02/19/09 01/04/15 documented as of this encounter
--- OUTSIDE RECORDS SUMMARY | 2024-09-17 15:17 | XMS_ITS | Encounter Summary ---
Author Organization [facility] Address [address] [place] [address] Care Team Providers Care Analysis Or Research Safety Inspector Name Role Phone Remedios Mehta MD Primary Care Provider [phone] Reason for Visit * Reason Comments Community Health Team Encounter Details Date Type Department Care Team (Late st Contact Info) Description 04/24/2014 Community Health Team [facility] [address] [facility], [address] [place], [place] [id number] Yaneth Alberts, RD [address] [place] [address] Social History Tobacco Use Types [...] Author Yes 07/17/2013 23:00 EDT Phill Live RON documented in this encounter Progress Notes * Shilpi Forte - 04/24/2014 1136 EDT ..Patient no showed/cancelled appointment with team members. Left two messages and sent letter for patient to reschedule with no response. Patient is on INACTIVE status with the [facility] Team. documented in this encounter Plan [...] on filedocumented in this encounter Care Teams Analysis Or Research Safety Inspector Relationship Specialty Start Date End Date Remedios Mehta MD [address] [place] [phone] PCP - General 02/19/09 01/04/15 documented as of this encounter
--- OUTSIDE RECORDS SUMMARY | 2024-09-17 15:17 | XMS_ITS | Encounter Summary ---
Author Organization [facility] Address [address] [place] [address] Care Team Providers Care Dope Weigh Operator Name Role Phone German Garzon PA-C Primary Care Provider [phone] Encounter Details Date Type Department Care Team (Late st Contact Info) Description 04/15/[address] [facility] Adult Primary Care - [place] [address] [place] [address] Shirley Birmingham MD [address] [facility] Level [address] [place] [address] Health examination in population survey [...] documented as of this encounter Care Teams Dope Weigh Operator Relationship Specialty Start Date End Date German Garzon PA-C [address] [place] [address] PCP - General 09/28/18 05/29/22 documented as of this encounter
--- OUTSIDE RECORDS SUMMARY | 2024-09-17 15:17 | XMS_ITS | Encounter Summary ---
Author Organization [facility] Address [address] [place] [address] Care Team Providers Care Specification Manager Name Role Phone Remedios Mehta MD Primary Care Provider [phone] Encounter Details Date Type Department Care Team (Latest Contact Info) Description 04/18/2014 10:01 EDT - 04/18/2014 23:59 EDT Hospital Encounter [address] [address] Remedios Mehta MD [address] [place] [phone] Discharge Disposition: Home or Self Care [...] Phill Live RN documented in this encounter Discharge Diagnoses Diagnosis V72.5 RADIOLOGICAL EXAM NEC[ICD-9-CM] documented in this encounter Medications at Time of Discharge acetaminophen (TYLENOL) 325 mg tablet Take 2 Tabs by mouth every 6 hours as needed for Pain. 224 Tab 3 4 albuterol (PROVENTIL HFA, VENTOLIN HFA) 90 mcg/actuation inhaler Inhale 2 Puffs as directed every 4 hours. 1 Inhaler 1 2 albuterol (PROVENTIL) 2.5 mg /3 mL (0.083 %) nebulizer solution Take 3 mL by nebulization every 4 hours as needed for Wheezing. 1 Box 1 2 budesonide-formoter ol HFA (SYMBICORT) 80-4.5 mcg/actuation HFA Aerosol Inhaler inhalerIndications: Asthma,Hyperlipidem ia,Need for Tdap vaccination,Abdomin al discomfort,IBS (irritable bowel syndrome),GERD (gastroesophageal reflux disease) Inhale 2 Puffs as directed 2 times daily. 1 Inhaler 5 3 CALCIUM CARBONATE/VITAMIN D3 (CALCIUM WITH VITAMIN D ORAL) Take by mouth daily. docusate sodium (COLACE) 100 mg capsule Take 1 Cap by mouth 2 times daily as needed for Constipation. 3 fluocinonide (LIDEX) 0.05 % cream Apply to affect area(s) as directed. 60 g 3 3 fluticasone (FLONASE) 50 mcg/actuation nasal sprayIndications:As thma,Hyperlipidemia ,Need for Tdap vaccination,Abdomin al discomfort,IBS (irritable bowel syndrome),GERD (gastroesophageal reflux disease) Instill 1 Mcloud into both nostrils daily. 1 Bottle 5 3 loratadine (CLARITIN) 10 mg tablet Take 1 Tab by mouth daily. 90 Tab 1 3 lovastatin (MEVACOR) 20 mg tabletIndications:H yperlipidemia Take 1 Tab by mouth daily. 90 Tab 4 4 lubiprostone (AMITIZA) 24 mcg capsule Take 24 mcg by mouth as needed. 0 MULTIVITAMINS (MULTIVITAMIN ORAL) Take 1 Tab by mouth daily. pregabalin (LYRICA) 50 mg capsule Take 1 Cap by mouth 3 times daily. 90 Cap 3 4 CYMBALTA 60 mg capsule TAKE ONE CAPSULE BY MOUTH EVERY DAY 90 Cap 3 3 09/24/20 18 ferrous gluconate (FERGON) 324 mg (38 mg iron) tablet Take 1 Tab by mouth 2 times daily with breakfast and dinner. 60 Tab 4 3 04/18/20 21 HYDROcodone-acetami nophen (NORCO) 10-325 mg tabletIndications:P ain of right leg,Cervical spondylosis without myelopathy,Arthropa thy,Fibromyalgia Take 1 Tab by mouth every 6 hours as needed for Pain. 116 Tab 0 4 09/24/20 18 ketoconazole (NIZORAL) 2 % creamIndications:Ra sh Apply topically daily. Apply to affect area(s) as directed. 1 Tube 1 0 04/18/20 21 metoprolol (LOPRESSOR) 25 mg tabletIndications:H ypertension Take 1 Tab by mouth 2 times daily. 180 Tab 4 3 09/24/20 18 nabumetone (RELAFEN) 500 mg tablet Take 2 Tabs by mouth daily 2 tabs bid with food.. 60 Tab 2 4 04/18/20 21 omeprazole (PRILOSEC) 20 mg capsuleIndications: GERD (gastroesophageal reflux disease),Cough Take 1 Cap by mouth 2 times daily. 60 Cap 5 4 09/24/20 18 ondansetron (ZOFRAN-ODT) 4 mg disintegrating tablet Take 1 Tab by mouth every 6 hours as needed for Nausea. 12 Tab 0 3 09/24/20 18 polyethylene glycol (GLYCOLAX) 17 gram/dose powderIndications:I C (irritable colon) Take 17 g by mouth daily. 1 Bottle 3 4 10/17/20 14 traZODone (DESYREL) 100 mg tablet Take 1-2 Tabs by mouth at bedtime as needed for Sleep. 56 Tab 3 4 05/10/20 14 zafirlukast (ACCOLATE) 20 mg tablet Take 1 Tab by mouth 2 times daily. 180 Tab 5 3 04/18/20 21 documented as of this encounter Discharge Disposition Disposition Code Departure Means Destination Home or Self Long Term documented in this encounter Plan of Treatment [...] on filedocumented in this encounter Care Teams Specification Manager Relationship Specialty Start Date End Date Remedios Mehta MD [address] [place] [phone] PCP - General 02/19/09 01/04/15 documented as of this encounter
--- OUTSIDE RECORDS SUMMARY | 2024-09-17 15:17 | XMS_ITS | Encounter Summary ---
Author Organization [facility] Address [address] [place] [address] Care Team Providers Care Creping Machine Operator Helper Name Role Phone German Garzon PA-C Primary Care Provider [phone] Encounter Details Date Type Department Care Team (Late st Contact Info) Description 04/15/2021 Transcribe Orders [facility] Medicine [facility] [address] [place] [address] Cata Dave MD [address] [place] [address] Social History Tobacco Use Types [...] documented as of this encounter Care Teams Creping Machine Operator Helper Relationship Specialty Start Date End Date German Garzon PA-C [address] [place] [address] PCP - General 09/28/18 05/29/22 documented as of this encounter
--- OUTSIDE RECORDS SUMMARY | 2024-09-17 15:17 | XMS_ITS | Encounter Summary ---
Author Organization [facility] Address [address] [place] [address] Care Team Providers Care Bus Steward Name Role Phone Remedios Mehta MD Primary Care Provider [phone] Reason for Visit * Reason Onset Date Comments Medications Refill 04/18/2014 Encounter Details Date Type Department Care Team (Late st Contact Info) Description 04/18/2014 Refill [facility] Interventional Pain [address] [place], [place] [phone] Abundio Tubbs, DO [address] [facility] [address] [place] [address] Medications Refill Social History Tobacco Use Types [...] Date Author Yes 07/17/2013 23:00 EDT Phill Live, RN documented in this encounter Ordered Prescriptions Prescription Sig Dispense Quantity Refills Last Filled Start Date End Date nabumetone (RELAFEN) 500 mg tablet Take 2 Tabs by mouth daily 2 tabs bid with food.. 60 Tab 2 04/18/2014 04/18/2021 documented in this encounter Miscellaneous Notes * Telephone Encounter - Ivy Rayo RN - 04/18/2014 1554 EDT Last appt: 02/25/14 Next appt:04/22/14 Med Last start date Last end date New RX start date relafen 01/10/14 04/12/14 04/18/14 * Telephone Encounter - Leonarda Benntet - 04/18/2014 1503 EDT relafen 500 mg2 tabs daily Need refill Please call into [facility]. She is out didn't realize she was [...] documented as of this encounter Care Teams Bus Steward Relationship Specialty Start Date End Date Remedios Mehta MD [address] [place] [phone] PCP - General 02/19/09 01/04/15 documented as of this encounter
--- OUTSIDE RECORDS SUMMARY | 2024-09-17 15:17 | XMS_ITS | Encounter Summary ---
Author Organization [facility] Address [address] [place] [address] Care Team Providers Care Electric Locomotive Crane Operator Name Role Phone Remedios Mehta MD Primary Care Provider [phone] Reason for Visit * Reason Comments Chronic Pain Encounter Details Date Type Department Care Team (Late st Contact Info) Description 04/22/2014 13:30 EDT Nurse Only [address] [phone] Unknown, Provider, Viky Garcia [address] [place] [address] Nurse, [facility] Family, RN Pain of right leg (Primary [...] documented in this encounter Discharge Diagnoses Diagnosis 729.5 PAIN [...] limb documented in this encounter Care Teams Electric Locomotive Crane Operator Relationship Specialty Start Date End Date Remedios Mehta MD [address] [place] [phone] PCP - General 02/19/09 01/04/15 documented as of this encounter
--- OUTSIDE RECORDS SUMMARY | 2024-09-17 15:17 | XMS_ITS | Encounter Summary ---
Author Organization [facility] Address [address] [place] [address] Care Team Providers Care Development And Planning Engineer Name Role Phone Unavailable Primary Care [...] Phill Live RN documented in this encounter Plan of [...]
--- OUTSIDE RECORDS SUMMARY | 2024-09-17 15:17 | XMS_ITS | Encounter Summary ---
Author Organization [facility] Address [address] [place] [address] Care Team Providers Care Simulation Engineer Name Role Phone Remedios Mehta MD Primary Care Provider [phone] Reason for Visit * Reason Comments Knee Pain Left knee DOI 04/02/14 Encounter Details Date Type Department Care Team (Late st Contact Info) Description 04/21/2014 14:00 EDT Office Visit [facility] Total Joint Program - [address] [place], [place] [phone] Yonathan Moreland MD Internal derangement of knee [...] 04/21/2014 1309 EDT documented in this encounter Mental Status * Because of a physical, mental, or emotional condition, do you have serious difficulty concentrating, remembering, or making decisions? (5 years old or older) Answer Entry Date Author Yes 07/17/2013 23:00 EDT Phill Live RN documented in this encounter Discharge Diagnoses Diagnosis 719.46 JOINT [...] office prn as she is moving to [place] in three days. * Cathryn Sanches - 04/21/2014 1359 EDT Left knee Injection Bupivacaine 0.5% 5 mg/mL Med lot number: [id number] [facility] number: [id number] Exp date: 30JUL2015 Tire Classifier: [employer] Drug waste: 10 mL vial, used 8 mL, wasted 2 mL Depo-Medrol 80 mg/mL Med lot number: [id number] [facility] number: [id number] Exp date: 01/2015 Tire Classifier: [employer]. Drug waste:1 mL vial, used 1 mL, [...] studies include X-ray. She is moving to [place] this and is wondering what can be [...] leg documented in this encounter Care Teams Simulation Engineer Relationship Specialty Start Date End Date Remedios Mehta MD [address] [place] [phone] PCP - General 02/19/09 01/04/15 documented as of this encounter
--- OUTSIDE RECORDS SUMMARY | 2024-09-17 15:17 | XMS_ITS | Encounter Summary ---
Author Organization [facility] Address [address] [place] [address] Care Team Providers Care Mechanical Fitter Name Role Phone None, Provider Primary Care Provider Unavailabl e Reason for Visit * Reason Comments Other Encounter Details Date Type Department Care Team (Late st Contact Info) Description 06/22/2015 [facility] Medicine [address] [address] Remedios Mehta MD [address] [place] [address] Other Social History Tobacco Use [...] on filedocumented in this encounter Care Teams Mechanical Fitter Relationship Specialty Start Date End Date None, Provider PCP - General 01/05/15 09/23/18 documented as of this encounter
--- OUTSIDE RECORDS SUMMARY | 2024-09-17 15:17 | XMS_ITS | Encounter Summary ---
Author Organization [facility] Address [address] [place] [address] Care Team Providers Care Mergers And Acquisitions Consultant Name Role Phone Remedios Mehta MD Primary Care Provider [phone] Encounter Details Date Type Department Care Team (Late st Contact Info) Description 04/22/[address] [address] German Ivory PA-C [address] [place] [address] [place] [address] Social History Tobacco Use Types Packs/Day [...] on filedocumented in this encounter Care Teams Mergers And Acquisitions Consultant Relationship Specialty Start Date End Date Remedios Mehta MD [address] [place] [phone] PCP - General 02/19/09 01/04/15 documented as of this encounter
--- OUTSIDE RECORDS SUMMARY | 2024-09-17 15:17 | XMS_ITS | Encounter Summary ---
Author Organization [facility] Address [address] [place] [address] Care Team Providers Care Clothing Presser Name Role Phone Unavailable Primary Care Provider Unavailabl e Reason for Visit * Reason Comments Abdominal Pain Pt with hx of right hemicolectomy, now has left sided abdominal pain, +vomiting and diarrhea. Pt rates pain 04/08. Afebrile. Encounter Details Date Type Department Care Team (Late st Contact Info) Description 09/24/2018 14:04 EST - 09/24/2018 21:08 EST Emergency [facility] Emergency Department - [address] [id number] Aldo Mueller MD PALisbethC [address] [place] [phone] Willis Horner DO [address] [facility], [address] [place] [phone] Edmund Kim [address] [place] [address] Emergency, MD Anya Colitis, acute (Primary Dx) [...] Index - - documented in this encounter Mental Status * Because of a physical, mental, or emotional condition, do you have serious difficulty concentrating, remembering, or making decisions? (5 years old or older) Answer Entry Date Author Yes 07/17/2013 23:00 EDT Phill Live RN documented in this encounter Discharge Diagnoses Diagnosis K52.9 Noninfective gastroenteritis and colitis, unspecified-K52.9[ICD-10-CM] R11.0 Nausea-R11.0[ICD-10-CM] R10.13 Epigastric pain-R10.13[ICD-10-CM] R10.12 Left upper quadrant pain-R10.12[ICD-10-CM] R10.32 Left lower quadrant pain-R10.32[ICD-10-CM] E80.7 DISORDER OF BILIRUBIN METABOLISM, UNSPECIFIED[ICD-10-CM] K21.9 Gastro-esophageal reflux disease without esophagitis-K21.9[ICD-10-CM] J45.909 Unspecified asthma, uncomplicated-J45.909[ICD-10-CM] E78.5 Hyperlipidemia, unspecified-E78.5[ICD-10-CM] E11.9 Type 2 diabetes mellitus without complications-E11.9[ICD-10-CM] 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 * COLITIS (SWEDISH) documented in this encounter Medications at Time [...] needed for Wheezing. 1 Box 1 2 budesonide-formoterol HFA (SYMBICORT) 80-4.5 mcg/actuation HFA Aerosol Inhaler inhalerIndications:As thma,Hyperlipidemia,N eed for Tdap vaccination,Abdominal discomfort,IBS [...] 3 3 fluticasone (FLONASE) 50 mcg/actuation nasal sprayIndications:Asth ma,Hyperlipidemia,Nee d for Tdap vaccination,Abdominal discomfort,IBS (irritable bowel syndrome),GERD (gastroesophageal reflux disease) Instill 1 [place] into both nostrils daily. 1 Bottle 5 3 loratadine (CLARITIN) 10 mg tablet Take 1 Tab by mouth daily. 90 Tab 1 3 lovastatin (MEVACOR) 20 mg tabletIndications:Hyp erlipidemia Take 1 Tab by mouth daily. 90 Tab 4 4 lubiprostone (AMITIZA) 24 mcg capsule Take 24 mcg by mouth as needed. 0 MULTIVITAMINS (MULTIVITAMIN ORAL) Take 1 Tab by mouth daily. pregabalin (LYRICA) 50 mg capsule Take 1 Cap by mouth 3 times daily. 90 Cap 3 4 traZODone (DESYREL) 100 mg tablet Take 1 Tab by mouth at bedtime for 10 days. 10 Tab 8 traZODone (DESYREL) 100 mg tablet Take 0.5-1 Tabs by mouth at bedtime as needed for Sleep. 56 Tab 1 4 busPIRone (BUSPAR) 5 mg tablet Take 1.5 Tabs by mouth 2 times daily for 10 days. 30 Tab 8 10/04/20 18 ciprofloxacin HCl (CIPRO) 500 mg tablet Take 1 Tab by mouth every 12 hours for 10 days. 20 Tab 8 10/04/20 18 DULoxetine (CYMBALTA) 30 mg delayed release capsule Take 2 Caps by mouth daily for 10 days. 20 Cap 8 10/04/20 18 Fenofibrate Nanocrystallized (TRICOR) 145 mg tablet Take 1 Tab by mouth daily for 10 days. 10 Tab 8 10/04/20 18 ferrous gluconate (FERGON) 324 mg (38 mg iron) tablet Take 1 Tab by mouth 2 times daily with breakfast and dinner. 60 Tab 4 3 04/18/20 21 ketoconazole (NIZORAL) 2 % creamIndications:Rash Apply topically daily. Apply to affect area(s) as directed. 1 Tube 1 0 04/18/20 21 lovastatin (MEVACOR) 20 mg tablet Take 1 Tab by mouth daily for 10 days. 10 Tab 8 10/04/20 18 metFORMIN (GLUCOPHAGE) 500 mg tablet Take 1 Tab by mouth 2 times daily for 10 days. 20 Tab 8 10/04/20 18 metoprolol XL (TOPROL-XL) 25 mg tablet Take 1 Tab by mouth daily for 10 days. 10 Tab 8 10/04/20 18 metroNIDAZOLE (FLAGYL) 500 mg tablet Take 1 Tab by mouth every 8 hours for 10 days. 30 Tab 8 10/04/20 18 nabumetone (RELAFEN) 500 mg tablet Take 2 Tabs by mouth daily 2 tabs bid with food.. 60 Tab 2 4 04/18/20 21 omeprazole (PRILOSEC) 20 mg capsule Take 1 Cap by mouth 2 times daily for 10 days. 20 Cap 8 10/04/20 18 polyethylene glycol (GLYCOLAX) 17 gram/dose powder Take 17 g by mouth daily. 1 Bottle 0 4 04/18/20 21 zafirlukast (ACCOLATE) 20 mg tablet Take 1 Tab by mouth 2 times daily. 180 Tab 5 3 04/18/20 21 documented as of this encounter Ordered Prescriptions Prescription Sig Dispense Quantity Refills Last Filled Start Date End Date traZODone (DESYREL) 100 mg tablet Take 1 Tab by mouth at bedtime for 10 days. 10 Tab 09/24/2018 metroNIDAZOLE (FLAGYL) 500 mg tablet Take 1 Tab by mouth every 8 hours for 10 days. 30 Tab 09/24/2018 8 ciprofloxacin HCl (CIPRO) 500 mg tablet Take 1 Tab by mouth every 12 hours for 10 days. 20 Tab 09/24/2018 8 omeprazole (PRILOSEC) 20 mg capsule Take 1 Cap by mouth 2 times daily for 10 days. 20 Cap 09/24/2018 8 metoprolol XL (TOPROL-XL) 25 mg tablet Take 1 Tab by mouth daily for 10 days. 10 Tab 09/24/2018 8 busPIRone (BUSPAR) 5 mg tablet Take 1.5 Tabs by mouth 2 times daily for 10 days. 30 Tab 09/24/2018 8 metFORMIN (GLUCOPHAGE) 500 mg tablet Take 1 Tab by mouth 2 times daily for 10 days. 20 Tab 09/24/2018 8 Fenofibrate Nanocrystallized (TRICOR) 145 mg tablet Take 1 Tab by mouth daily for 10 days. 10 Tab 09/24/2018 8 lovastatin (MEVACOR) 20 mg tablet Take 1 Tab by mouth daily for 10 days. 10 Tab 09/24/2018 8 DULoxetine (CYMBALTA) 30 mg delayed release capsule Take 2 Caps by mouth daily for 10 days. 20 Cap 09/24/2018 8 documented in this encounter Discharge Disposition Disposition Code Departure Means Destination Home or Self Care Car Home documented in this encounter ED Notes * Edmund Kim PA - 09/24/20188 EST DOS: 09/24/2018 Chief Complaint Patient presents [...] Procedures ED COURSE patient here visiting from [place] secondary to a and has had inability to go back to [place] secondary to her abdominal pain. She is [...] requested that she follow-up with on your Ligia in this week for further evaluation. A [...] previously charted. * Karo Hardy RN - 09/24/20181905 EST Assumed care of pt from previous [...] with hemicolectomy 2 years ago performed in [place], and GERD presents with acute onset of [...] with hemicolectomy 2 years ago performed in [place], and GERD presents with acute onset of left-sided abdominal pain. Physical exam as noted above. CT scan and labs ordered. Case discussed with Dr. Tre Horner. Acetaminophen given for pain. Patient had labs showing Total bilirubin 1.9. Patient had pain controlled on re-evaluation. Signed out to oncEdmund Espinoza, for continuation of care with CT scan [...] Pressure Asthma 133/57(2020 14:39 EDT) No Emily Gibsno LPN LDL < 130 Result Component Hyperlipidemia [...] and agree with the findings. Aldo Mueller MD, PA-C IMG CT ORDERABL ES Final Result * HOLD GREEN TOP (09/24/2018 17:25 EST) Hold Green Top Hold for further testing. Specimen will be held for 5 days. 09/24/2018 18:11 EST [facility] Blood specimen (specimen) BLOOD SPECIMEN / Unknown 09/24/2018 17:25 EST 09/24/2018 18:03 EST Aldo Mueller MD, PA-C LAB INF O SERVICE AND SUPPORT & PHONE RESULT Final Result [facility] [address] [place] [id number] * HOLD BLUE TOP (09/24/2018 17:25 EST) Hold Blue Top Sample for coagulation will be discarded after 4 hours 09/24/2018 18:34 EST [facility] Blood specimen (specimen) BLOOD SPECIMEN / Unknown 09/24/2018 17:25 EST 09/24/2018 18:03 EST Aldo Mueller MD, PA-C LAB INF O SERVICE AND SUPPORT & PHONE RESULT Final Result [facility] [address] [place] [address] * LIPASE (09/24/2018 17:25 EST) Lipase 179 <251 U/L 09/24/2018 18:21 [facility] Blood specimen (specimen) BLOOD SPECIMEN / Unknown 09/24/2018 17:25 EST 09/24/2018 18:03 EST us Aldo Mueller MD, PA-C CHEMISTRY & BLO OD GAS ORDERABLES Final Result Performing Organization Address City/[facility]/ZIP Co de Phone Number [facility] [address] [place] [address] * BASIC METABOLIC PANEL (BMP) (09/24/2018 17:25 EST) Sodium 143 136 - 145 mEq/L 09/24/2018 18:21 [facility] Potassium 3.5 3.5 - 5.0 mEq/L 09/24/2018 18:21 [facility] Chloride 105 96 - 110 mEq/L 09/24/2018 18:21 [facility] CO2 29 22 - 32 mEq/L 09/24/2018 18:21 [facility] BUN 13 10 - 26 mg/dl 09/24/2018 18:21 [facility] Creatinine 0.81 0.52 - 1.04 mg/dl 09/24/2018 18:21 [facility] GFR, Calculated 81 >60 ml/min/1.7 3m2 09/24/2018 18:21 [facility] Comment: eGFR calculated using CKD-EPI equation for non Americans. Multiply eGFR by 1.16 for Americans. Calcium 9.7 8.5 - 10.5 mg/dl 09/24/2018 18:21 [facility] Calculated Calcium 9.1 8.5 - 10.5 mg/dl 09/24/2018 18:21 [facility] Glucose, Serum 86 70 - 100 mg/dl 09/24/2018 18:21 [facility] Fasting? Unknown 09/24/2018 18:21 [facility] Blood specimen (specimen) BLOOD SPECIMEN / Unknown 09/24/2018 17:25 EST 09/24/2018 18:03 EST us Aldo Mueller MD PA-C CHEMISTRY & BLO OD GAS ORDERABLES Final Result Performing Organization Address City/[facility] Co de Phone Number [facility] [address] [place] [address] * (ABNORMAL) HEPATIC FUNCTION PANEL (ALB,ALK PHOS,ALT,AST,DBIL,TOT YELENA,TOT PROT) (09/24/2018 17:25 EST) Albumin 4.7 3.4 - 4.9 g/dl 09/24/2018 18:21 [facility] Total Protein 7.2 6.3 - 8.2 g/dl 09/24/2018 18:21 [facility] Total Alkaline Phosphatase 65 38 - 126 U/L 09/24/2018 18:21 [facility] ALT 28 <53 U/L 09/24/2018 18:21 [facility] AST 18 15 - 46 U/L 09/24/2018 18:21 [facility] Unconjugated Bilirubin 1.6(H) 0.0 - 1.1 mg/dl 09/24/2018 18:21 [facility] Conjugated Bilirubin 0.0 0.0 - 0.3 mg/dl 09/24/2018 18:21 [facility] Bilirubin, Total 1.9(H) <1.4 mg/dl 09/24/20 18 18:21 [facility] Blood specimen (specimen) BLOOD SPECIMEN / Unknown 09/24/2018 17:25 EST 09/24/2018 18:03 EST us Aldo Mueller MD, PA-C CHEMISTRY & BLO OD GAS ORDERABLES Final Result Performing Organization Address City/[facility]/ZIP Co de Phone Number [facility] [address] [place] [address] * (ABNORMAL) COMPLETE BLOOD COUNT AND DIFFERENTIAL (09/24/2018 17:25 [facility]) WBC 8.81 4.0 - 12.4 K/cmm 09/24/2018 18:14 [facility] RBC 4.82 3.86 - 5.04 M/cmm 09/24/2018 18:14 [facility] Hemoglobin 13.9 11.6 - 15.2 gm/dl 09/24/2018 18:14 [facility] HCT 41.6 34.9 - 44.4 % 09/24/2018 18:14 [facility] MCV 86 81 - 98 fl 09/24/2018 18:14 [facility] MCH 28.8 26.7 - 33.3 pg 09/24/2018 18:14 [facility] MCHC 33.4 32.1 - 35.9 gm/dl 09/24/2018 18:14 [facility] RDW-CV 12.9 <14.7 % 09/24/2018 18:14 [facility] RDW-SD 40.4 <50.4 fl 09/24/2018 18:14 [facility] PLT 325 141 - 377 K/cmm 09/24/2018 18:14 [facility] MPV 8.9(L) 9.5 - 12.7 fl 09/24/2018 18:14 [facility] % Neutrophils 51.5 % 09/24/2018 18:14 [facility] % Lymphocytes 39.2 % 09/24/2018 18:14 [facility] % Monocytes 6.6 % 09/24/2018 18:14 [facility] % Eosinophils 1.8 % 09/24/2018 18:14 [facility] % Basophils 0.8 % 09/24/2018 18:14 [facility] % Immature Grans 0.1 % 09/24/2018 18:14 [facility] ABS Neutrophils 4.54 2.20 - 8.85 K/cmm 09/24/2018 18:14 [facility] ABS Lymphs 3.45(H) 1.09 - 3.30 K/cmm 09/24/2018 18:14 [facility] ABS Monocytes 0.58 0.1 - 0.8 K/cmm 09/24/2018 18:14 [facility] ABS Eosinophils 0.16 0.03 - 0.61 K/cmm 09/24/2018 18:14 [facility] ABS Basophils 0.07 0.01 - 0.11 K/cmm 09/24/2018 18:14 [facility] ABS Immature Grans 0.01 0 - 0.06 K/cmm 09/24/2018 18:14 [facility] Type of Diff: Automated 09/24/2018 18:14 [facility] Blood specimen (specimen) BLOOD SPECIMEN / Unknown 09/24/2018 17:25 EST 09/24/2018 18:03 EST us Aldo Mueller MD PA-C PACKAGES & DNA PROBE ORDERABLES Final Result [facility] [address] [place] [address] documented in this encounter Visit Diagnoses Diagnosis Colitis, acute- Primary Other and unspecified noninfectious gastroenteritis and colitis documented in this encounter Administered Medications Inactive Administered Medications - up to 3 most recent administrations Medication Order MAR Action Action Date Dose Rate Site naproxen (NAPROSYN) tablet 500 mg 500 mg, oral, NOW X1, 1 dose, On 09/24/18 at 2014, STAT Given 09/24/2018 20:43 EST [...] 1 dose, On Mon09/24/18 at 2015, STAT 3 (Given - Provid er: Karo Hardy RN) documented in this encounter Orders Medications Ordered That Max ht Not Have Been Administered Count Last Ordered Date First Ordered Date acetaminophen (TYLENOL) tablet 1,000 mg 1 1 11/24/2017 Nursing Count Last Ordered Date First Orde red Date INSERT PERIPHERAL IV 1 09/24/2018 documented in this encounter
--- OUTSIDE RECORDS SUMMARY | 2024-09-17 15:17 | XMS_ITS | Encounter Summary ---
Author Organization [facility] Address [address] [place] [address] Care Team Providers Care Development Analyst Name Role Phone Remedios Mehta MD Primary Care Provider [phone] Reason for Visit * Reason Comments Other Encounter Details Date Type Department Care Team (Late st Contact Info) Description 10/17/2014 [facility] Medicine [address] [address] Remedios Mehta MD [address] [place] [phone] Other Social History Tobacco Use Types [...] Phill Live RN documented in this encounter Ordered Prescriptions Prescription Sig Dispense Quantity Refills Last Filled Start Date End Date polyethylene glycol (GLYCOLAX) 17 gram/dose powder Take [...] documented as of this encounter Care Teams Development Analyst Relationship Specialty Start Date End Date Remedios Mehta MD [address] [place] [phone] PCP - General 02/19/09 01/04/15 documented as of this encounter
--- OUTSIDE RECORDS SUMMARY | 2024-09-17 15:17 | XMS_ITS | Encounter Summary ---
Author Organization [facility] Address [address] [place] [address] Care Team Providers Care Wallpaper Inspector Name Role Phone German Garzon PA-C Primary Care Provider [phone] Encounter Details Date Type Department Care Team [...] Date of Assessment Author No 2021 18:05 EDT Araseli Palomares RN * Are you blind or do [...] documented as of this encounter Care Teams Wallpaper Inspector Relationship Specialty Start Date End Date German Garzon PA-C [address] [place] [phone] PCP - General 09/28/18 05/29/22 documented as of this encounter
--- OUTSIDE RECORDS SUMMARY | 2024-09-17 15:17 | XMS_ITS | Encounter Summary ---
Author Organization [facility] Address [address] [place] [address] Care Team Providers Care Engraving Operator Name Role Phone Duran German Anguiano PA-C Primary Care Provider [phone] Reason for Visit * Reason Comments Emesis Pt unable to tolerat e PO for 7 days. Visiting [place] +emesis in triage (bile). Known 'digestive and liver issues.' Reports blood in vomit this morning. Hx IBS and colon resection. Diaphoretic. BGL 179 * Auth/Cert Specialty Diagnoses / Procedures Referred By Joao proctor Referred To Contact Diagnoses Diarrhea Colitis Generalized abdominal pain Referral ID Status Reason Start Date Expiration Date Visits Re quested Visits Authorized [id number] 1 1 Encounter Details Date Type Department Care Team (Late st Contact Info) Description 2021 10:36 EDT - 04/18/2021 15:[address] [facility] General Medicine Unit [address] [place] [address] Nel Borges MD MPH 111 [facility], Level [address] [place] [address] Jhon Rdz MD [address] [phone] Generalized abdominal pain (Primary Dx); Colitis; Functional [...] EDT documented in this encounter Functional Status * Are you deaf or do you have serious difficulty hearing? Answer Date of Assessment Author No 2021 18:05 EDAraseli Lr RN * Are you blind or do [...] Date of Assessment Author No 2021 18:05 EDAraseli Lr RN * Because of a physical, mental, [...] Araseli Rhodes RN documented in this encounter Discharge Summaries * Jhon Rdz [...] Procedure: None Secondary Procedures: None Hospital Course: Erika Husain??is a 61 y.o.??female??with a PMHx [...] Procedure Component Value Units Date/Time Calprotectin, F [[id number]] Collected: 04/16/21816 Lab Status: In process Specimen: Feces from Rectum Updated: 04/16/21846 Giardia and Cryptosporidum Antigen Detection [[id number]] Collected: 04/16/21816 Lab Status: In process Specimen: Feces from Rectum Updated: 04/16/21846 Bacterial Culture, Blood [[id number]] Collected: 04/14/211907 Lab Status: In process Specimen: Blood, Venous Updated: 04/14/211926 Bacterial Culture, Blood [[id number]] Collected: 04/14/21 190 Lab Status: In process Specimen: Blood, Venous Updated: 04/14/211925 Tissue Transglutaminase Ab [[id number]] Collected: 04/14/21 1108 Lab Status: In process [...] 14:48 EDT Thank you for allowing the [facility] to be a part of your [...] 16 mg in a 24 hour period. [facility] Patient Instructions loperamide Pronunciation: jena PER a [...] may report side effects to FDA at [phone]-[phone]. What other drugs will affect loperamide? Sometimes [...] can affect loperamide. This includes prescription and przq-qrk-rkqmpsv medicines, vitamins, and herbal products. Not all [...] to ensure that the information provided by [employer]. ('[employer]') is accurate, up-to-date, and complete, but no guarantee is made to that effect. Drug information contained herein may be time sensitive. [employer] information has been compiled for use by healthcare practitioners and consumers in the [place] and therefore [employer] does not warrant that uses outside of the [place] are appropriate, unless specifically indicated otherwise. [employer] drug information does not endorse drugs, diagnose patients or recommend therapy. [employer] drug information isan informational resource designed to [...] effective or appropriate for any given patient. [employer] does not assume any responsibility for any aspect of healthcare administered with the aid of information [employer] provides. The information contained herein is not intended to cover all possible uses, directions, precautions, warnings, drug interactions, allergic reactions, or adverse effects. If you have questions about the drugs you are taking, check with your doctor, nurse or pharmacist. Copyright 1472-9591 [employer]. Version: 9.01. Revision date: 01/16/2019. Care instructions adapted under license by [facility]. If you have questions about a medical condition or this instruction, always ask your healthcare professional. [employer] disclaims any warranty or liability for your [...] needed for Wheezing. 1 Box 1 08/25/2012 budesonide-formo terol HFA (SYMBICORT) 80-4.5 mcg/actuation HFA Aerosol Inhaler inhalerIndicatio ns:Asthma,Hyperl ipidemia,Need for Tdap vaccination,Abdo roque discomfort,IBS (irritable bowel syndrome),GERD (gastroesophagea l reflux disease) Inhale 2 Puffs as directed 2 times daily. 1 Inhaler 5 06/05/2013 CALCIUM CARBONATE/VITAMI N D3 (CALCIUM WITH VITAMIN D ORAL) Take by mouth daily. docusate sodium (COLACE) 100 mg capsule Take 1 Cap by mouth 2 times daily as needed for Constipation. 06/14/2013 fluocinonide (LIDEX) 0.05 % cream Apply to affect area(s) as directed. 60 g 3 06/05/2013 fluticasone (FLONASE) 50 mcg/actuation nasal sprayIndications :Asthma,Hyperlip idemia,Need for Tdap vaccination,Abdo roque discomfort,IBS (irritable bowel syndrome),GERD (gastroesophagea l reflux disease) Instill 1 [place] into both nostrils daily. 1 Bottle 5 06/05/2013 loratadine (CLARITIN) 10 mg tablet Take 1 Tab by mouth daily. 90 Tab 1 08/21/2013 lovastatin (MEVACOR) 20 mg tabletIndication s:Hyperlipidemia Take 1 Tab by mouth daily. 90 [...] hours for 1 day. 3 capsule 04/18/2021 1 vancomycin (VANCOCIN) 125 mg capsule Take 1 capsule by mouth 4 times daily for 16 days. 62 capsule 04/18/2021 1 documented as of this encounter Ordered Prescriptions Prescription Sig Dispense Quantity Refills Last Filled Start Date End Date prochlorperazine (COMPAZINE) 10 mg tablet Take 1 Tablet by mouth 3 times daily. 10 Tablet 04/18/2021 vancomycin (VANCOCIN) 125 mg capsule Take 1 capsule by mouth 4 times daily for 16 days. 62 capsule 04/18/2021 1 amoxicillin (AMOXIL) 500 mg capsule Take 1 capsule by mouth every 8 hours for 1 day. 3 capsule 04/18/2021 1 documented in this encounter Discharge Disposition Disposition Code Departure Means Destination Home or Self Nursing Home documented in this encounter Progress Notes * Aly Mike MD - 04/17/2021 1101 EDT Colorectal surgery progress note Colorectal surgery to sign off at this time. Please page the animal nutrition teacher resident at [phone] with questions. Follow up in 1 month in our clinic (referral made by me). Aly Mike MD PGY1 04/17/21 11:03 Pager#[phone] * Jhon Rdz MD - 04/17/2021 0537 EDT Medicine Progress Note Service Date: 04/17/2021 Admit Date: 2021 10:36 Reason for Admission: 61 y.o. female admitted with a chief complaint of zdqms-xq-zvjwdrs diarrhea and now with a principal diagnosis [...] 26 23 Imaging Reviewed. Micro Reviewed. - 6/18/21 Giardia and cryptosporidium: Pending - 04/16/21 Usual [...] daily, day 2/4 - Dulera instead of DISTRICT SUPERINTENDENT symbicort, DISTRICT SUPERINTENDENT albuterol - Duonebs Q6Hrs ?? Enterococcus faecalis [...] - Glucose checks ACHS Insomnia - Hold DISTRICT SUPERINTENDENT trazodone 100 mg QHS - Ramelteon QHS prn Cannabis vape pen use - Recommend cessation Fibromyalgia - DISTRICT SUPERINTENDENT pregabalin 50 mg TID ?? VTE Prophylaxis [...] female admitted with a chief complaint of fhlhg-lc-osserbe diarrhea and now with a principal diagnosis [...] nerves III-XII grossly intact. Dysmetria present on bxkwxp-shpd-vuzwym. Psychiatric: Anxious mood and affect. Is PICC [...] likely be outpatient with her providers in [place]. Colorectal surgeryevaluation pending, may reach out to [...] - Start Prednisone 40 mg daily, day 1/4 - Dulera instead of DISTRICT SUPERINTENDENT symbicort, DISTRICT SUPERINTENDENT albuterol - Duonebs q6h ?? Enterococcus faecalis [...] - Glucose checks ACHS Insomnia - Hold DISTRICT SUPERINTENDENT trazodone 100 mg QHS - Ramelteon QHS prn Cannabis vape pen use - Recommend cessation Fibromyalgia - DISTRICT SUPERINTENDENT pregabalin 50 mg TID ?? VTE Prophylaxis Ambulate ?? Discharge Plan Home or self care with resolution of electrolyte abnormalities and GI symptoms ?? Consults ACS, Colorectal surgery Wale Sendy, MS4 Pager # [phone] 04/16/2021 12:02 I was present with the medical student for the history, exam, and medical decision making documented. I have edited the medical student note as appropriate. Toi Hewitt MD Internal Medicine, PGY-1 pager [phone] 04/16/21 14:49 ATTENDING ATTESTATION: Date of service: [...] Jhon Rdz MD Internal Medicine Hospitalist, pager: [phone] 04/16/2021 15:04 * Kathy Prasad, PT - 04/16/2021 1130 EDT [facility] Rehabilitation Therapy Acute Therapy [facility] Physical Therapy Contact Note Date of Service: 04/16/2021 Patient unable to remain awake to participate in therapy evaluation. Recommend mobility with staff when awake. PT to follow up on Monday. KATHY PRASAD, PT 04/16/2021 11:30 * Nan Hoyos, RN [...] via [place] for desats to the 80s Subjective/Objective Subjective Erika is feeling the same [...] stable angina, for which she sees a vascular ultrasound technician back in [place]. Review of Systems A ten point review [...] little tachypneic (~20). - Dulera instead of DISTRICT SUPERINTENDENT symbicort, DISTRICT SUPERINTENDENT albuterol - Duonebs q6h - Consider steroids in AM if dyspnea worsens UTI - Enterococcus on urine cx - Unasyn as above Chronic/resolved problems External hemorrhoids - Hydrocortisone 2.5% BID - Will likely need outpatient excision T2DM: Glucose 50-100s. A1c 5.8. - SSI - Glucose checks TID w/ meals and QHS Insomnia - Hold DISTRICT SUPERINTENDENT trazodone 100 mg QHS - Ramelteon QHS prn VTE Prophylaxis Ambulate Discharge Plan Home or self care with resolution of electrolyte abnormalities and GI symptoms Consults Surgery Wale Kaba, MS4 Pager # [phone] 04/15/2021 16:49 ATTENDING ATTESTATION: Date of service: [...] Internal Medicine Hospitalist 04/15/2021 18:14 * Mimi Bearden, RON - 04/15/2021 1342 EDT Rapid Response Team Nursing Note (SBAR) Team Times: Call Type: MULTIPLE PRESSURE RIVETER OPERATOR Call Time: 1004 Call Date: 04/15/21 Call Originator: Nurse YEH Arrival at Bedside: 1010 Team Completion Time: [...] (Name): kiarra Michele RN Respiratory (Name): Julio SYKES Other Members (Name): Dr Shirley Birmingham Call [...] monitor and assist as needed * Denise Goldstein, RT - 04/15/2021 1317 EDT Images from [...] throughout Response: Mild response, increase subjective per WINDOWS MIGRATION TECHNICIAN Pulse: <100 Resp Rate: 18-25 SOB: With [...] improves after therapy. Continue with current therapy. RT BRENNON 04/15/21 * Wale Machuca, RT - 04/15/2021 1214 EDT Respiratory MULTIPLE PRESSURE RIVETER OPERATOR Call Note The patient's respiratory status has been evaluated during this MULTIPLE PRESSURE RIVETER OPERATOR call. Heart Rate: 103 BPM, Resp: 22, SpO2: 98 % on 1L nasal cannula. Respiratory therapy intervention was not required and an ABG was not obtained at this time. RT ARASH 04/15/21 * Talib Jorge RN - 04/15/2021 1012 EDT Initial Case Management/Social Work Assessment and Discharge Plan/Readmission Risk Assessment REASON FOR ADMISSION: Generalized abdominal pain Patient understands reason for admission: Yes PATIENT INFO VERIFIED: PCP: MARIA Carballo - office in [place], [place] ([phone]) Contact Info: Daughter Gifty ([phone]); Son Barney ([phone]) Address: [address] [place] [id number] Type of housing (single family, condo, apartment, assisted, single room occupancy, [facility] funded hotel room, group senior living) - Apartment Who does the patient live [...] to the patient? Friends / neighbors Is 24/7 care available? No ADVANCED DIRECTIVES, POA &/or COLST IN PLACE: Healthcare Directive: Yes, patient has advance directive for healthcare treatment Type of Healthcare Directive: Health care treatment directive Copy in Chart: Yes, previous copy on file @ [facility] DIRECTIVES FOR FINANCES: Directive For Finances: No TRANSPORTATION: Transportation: Family, Self Patient expects to be discharged to: Home with family CULTURAL, DRUZE and/or LANGUAGE factors affecting health care/discharge planning: Spiritual/Cultural Requests: None Language/Literacy Needs Do you need us to provide any communication aids or devices?: No Insurance Information: Medical Insurance: Yes Type of insurance: Medicare, Medicaid Referred to patient financial services: No Nutrition: Regular Diet (Low DISTRICT SUPERINTENDENT risk for food insecurity) DISCHARGE RISK ASSESSMENT: [...] Health Services: None DME Provider: N/a Pharmacy: [id number] - [place], [place] - [address] [facility] [address] [facility] - [place], [place] - [address] [place] [id number] [facility] - [place], [place] - [address] [facility] [address] [facility] [address] [facility] [address] - [place], [place] - [address] [facility] [address] [facility] - [facility] [address] [place] [id number] [facility] [address] Home Health: No current services Other: N/a POST HOSPITAL TRANSITION PLAN: Presented to [facility] 2021 with acute on chronic N/V/D, decreased [...] n/v Has been vaccinated for Covid with Moderna. Both children who will also be visiting at hospital have also been vaccinated. Patient resides in one level apartment with one stair to enter in [facility] with roommate Ernst of 6 years [...] supports in her area. Has been in [place] for approx one week visiting family and staying with her daughter Gifty ([phone]). Will follow up with patient at later time for any recommended needs at discharge dependent on clinical course. /tlvRN pg [phone] TALIB JORGE RN 04/15/2021 10:12 * Wale Machuca RT - 2021 1558 EDT Respiratory Consult/Progress Note Indications for Respiratory [...] ??? Lung disease ??? Obesity ??? confirmed 1979,1983 2 vaginal deliveries Past Surgical History: Procedure [...] prn Asthma exacerbation - Dulera instead of DISTRICT SUPERINTENDENT symbicort, DISTRICT SUPERINTENDENT albuterol - Duonebs q6h - Consider steroids if dyspnea worsens External hemorrhoids - Hydrocortisone 2.5% BID - Will likely need outpatient excision T2DM: Glucose 179 on admission. Not on DISTRICT SUPERINTENDENT meds. Last A1c in 2012 was 6.1. - Ordered A1c - SSI - Glucose chks TID w/ meals and QHS Insomnia - Hold DISTRICT SUPERINTENDENT trazodone 100 mg QHS - Ramelteon QHS prn VTE Prophylaxis Ambulate; low MIRTH score Code: Full Discharge Plan Home or self care upon resolution of GI symptoms Consults None Admission status Initiate observation status for acute diarrhea Wale Kaba, MS4 Pager # [phone] 17:10 I was present with the medical student for the history, exam, and medical decision making documented. I have edited the medical student note as appropriate. Toi Hewitt MD Internal Medicine, PGY-1 pager [phone] 04/14/21 17:53 ATTENDING ATTESTATION: Date of service: 2021 The resident was present with the medical student for the history, exam, medical decision making documented by him/her. I have personally performed my own physical exam and medical decision-making. Ihave verified and agree with (or, as indicated, edited in blue) the combined medical student's/resident's documentation. 61yo woman w/hx of DM2, SHROE, HTN, fibromyalgia. Presented to the ED with [...] Jhon Rdz MD Internal Medicine Hospitalist, pager: [phone] 18:14 documented in this encounter Consult Notes * Avel Bishop MD - 04/16/2021 105 EDT Inpatient Consult Note Admit Date: 2021 [...] ovarian or breast cancer SHx: Lives in [place] with a roommate. Has been in [place] for the past 2 weeks visiting [...] ??? Lung disease ??? Obesity ??? confirmed 1979,1983 2 vaginal deliveries Past Surgical History: Procedure [...] is unclear whether there is a significant roving changer the last week, however she does [...] Anxiety Arthritis osteoarthritis, psoriatic arthritis Asthma Cancer (HCC-CMS) Complication of anesthesia respiratory Constipation Depression Factor [...] HERNIA REPAIR JOINT REPLACEMENT 04/15/2010 Right TKR ([place]) KNEE SURGERY right BRITTANY AND BSO 06/11/2013 [...] ??F)-37.4 ??C (99.4 ??F)] Pulse: [86-110] Resp: [17-26] BP: (102-143)/(49-86) SpO2: [94 %-99 %] I+O: [...] results found for: PHISTAT, PCOISTAT, POISTAT, POCTCO2, Z3YIEJBN, BEART, POCFIO2 LFT: Lab Results Component Value [...] Katy Gonsales MD (PGY-5) 04/15/2021 13:38 Surgery Aws Software Development Engineer ACS pager is [phone] Attestation: I performed or was present during [...] EDT Dr. Borges wants pt moved to / for tele monitoring and because of pt current presentation, ED duct cleaner Ravinder notified * Refugio Hyman MA - 2021 1238 EDT 12 Lead EKG Performed by REFUGIO HYMAN MA and shown to Nel Borges MD MPH. * Eliza Varma RN - 2021 1230 EDT 12 Lead EKG Performed by ELIZA VARMA RN and shown to Nel Borges MD MPH. * Joyce Rodriguez - 2021 1152 EDT JOYCE Cheung, notified Dr. BORGES of POTASSIUM 2.6 on 2021 at 11:52. * Nel Borges MD MPH - 2021 1122 EDT This patient received an evaluation and medical screening exam for emergent medical conditions at the [facility] on 2021 Scribe attestation: This documentation is recorded by Joi Juarez acting as Scribe under the direction and presence of Nel Borges MD MPH. Nel Borges MD MPH: I personally performed the services recorded by the scribe in my presence. I confirm the scribe's documentation has been reviewed by me to accurately and completely record my work, treatment, procedures, and medical decision making. HPI Erika Husain is a 61 y.o. female with PMH including hemorrhoids, appendectomy, hernia repair, R hemicolectomy, cholecystectomy, endometrial cancer, hysterectomy, surgery for SBO about 5 years ago, and diabetes mellitus on metformin who presents to the ED for 1 week of increasing abdominal pain, na usea, vomiting, chillsand diarrhea. Patient is visiting from [place]. For the last month, abdominal pain has [...] include chills and diaphoresis. She called her [place] doctor and they recommended she come to [...] Final Ketones, UA 1+ (*) Final Specific [place], Urine <=1.005 Final Blood, UA Negative Final [...] Abnormality Status --------- ------ POCT URINE DIPSTICK, CLI...[[id number]] Abnormal Final result POCT CSN BARCODE URINE D...[[id number]] Final result Please view results for these [...] No suspicious osseous lesion or acute fracture. Svp Of Digital: No additional findings. Laboratory results independently reviewed, [...] no episodes ofvomiting during this shift. Action: atlassian administrator per eMAR. Routine assessment and hourly checks [...] vomited once throughout shift. . Abdominal pain, 8/10. Action: Medications administered per MAR. Care clustered [...] abdominal pain. Contact precautions in effect. Action: atlassian administrator per eMAR, including PRNs. Assisted OOB to bathroom numerous times + with repositioning. Response: Increased ambulation is being tolerated fairly well. PRNs effective for nausea and pain management. Pt endorsed being tired, able to achieve adequate sleep by end of shift. Call [facility], safety maintained. [facility]. JANIE RUEDA RN 04/17/2021 3:47 * Plan [...] cohort. Please contact Infection Prevention with questions ([phone]). * Plan of Care - Talib Jorge RN - 04/15/2021 1455 EDT 04/15/21 1430 Medicare IM Notice IM notice status Patient received notification verbally and in writing while in hospital. IM notice given on admission? Yes Talib Jorge RN [facility] Dept Pg [phone] * Plan of Care [...] Obs letter complete? Yes Talib Jorge RN [facility] Dept Pg [phone] * Plan of Care - Brook Galvin RN - 04/15/2021 0400 EDT Data: Assumed care of patient at 1900. A+Ox3, able to make needs known. Reporting 7/10 abdominal pain, nausea. LR running continuously. Oxygen [...] 04/15/2021 5:43 EDT POCT GLUCOSE, INTERFACED Routine 23:43 EDT BACTERIAL CULTURE, BLOOD Routine 19:08 EDT BACTERIAL CULTURE, BLOOD Routine 19:08 EDT ELECTROLYTES Routine 2021 19:08 EDT POCT GLUCOSE, INTERFACED Routine 19:03 EDT ZZCOVID-19 TEST [facility] PCR Today 2021 14:32 EDT COVID-19 [...] 2021 12:40 EDT BACTERIAL CULTURE, URINE Today 12:40 EDT EKG 12-LEAD STAT 2021 12:35 [...] (04/21/2021 13:19 EDT) 04/21/2021 13:1 9 EDT us Scan 2 Company Doctor PROCEDURE/MINOR SURGICAL OR DERABLES Final Result * ECG REPORT - SCANNED (04/21/2021 12:13 EDT) 04/21/2021 12:1 3 EDT us Scan 2 Company Doctor PROCEDURE/MINOR SURGICAL OR DERABLES Final Result * ECG REPORT - SCANNED (04/21/2021 11:53 EDT) 04/21/2021 11:5 3 EDT us Scan 2 Company Doctor PROCEDURE/MINOR SURGICAL OR DERABLES Final Result * ELECTROLYTES (04/18/2021 5:53 EDT) Sodium 140 136 - 145 mEq/L 04/18/2021 6:30 EDT [facility] Potassium 4.6 3.5 - 5.0 mEq/L 04/18/2021 6:30 EDT [facility] Chloride 106 96 - 110 mEq/L 04/18/2021 6:30 EDT [facility] CO2 Total 26 22 - 32 mEq/L 04/18/2021 6:30 EDT [facility] Blood VENOUS BLOOD / Unknown Venipuncture / Unknown 04/18/2021 5:53 EDT 04/18/2021 6:13 EDT us Shirley Birmingham MD CHEMISTRY & BLOOD GAS ORDERABLES Final Result [facility] [address] [place] [address] * PHOSPHORUS (04/18/2021 5:53 EDT) Phosphorus 2.7 2.5 - 4.5 mg/dL 04/18/2021 6:30 EDT [facility] Blood VENOUS BLOOD / Unknown Venipuncture / Unknown 04/18/2021 5:53 EDT 04/18/2021 6:13 EDT us Jhon Rdz MD CHEMISTRY & BLOOD GAS ORDE RABLES Final Result [facility] [address] [place] [address] * AST (04/18/2021 5:53 EDT) AST 21 15 - 46 U/L 04/18/2021 6:30 EDT [facility] Blood VENOUS BLOOD / Unknown Venipuncture / Unknown 04/18/2021 5:53 EDT 04/18/2021 6:13 EDT us Toi Hewitt MD CHEMISTRY & BLOOD GAS ORDERABL ES Final Result Performing Organization Address City/[facility]/ZIP Co de Phone Number [facility] [address] [place] [address] * ALT (04/18/2021 5:53 EDT) ALT 22 <35 U/L 04/18/2021 6:30 EDT [facility] Blood VENOUS BLOOD / Unknown Venipuncture / Unknown 04/18/2021 5:53 EDT 04/18/2021 6:13 EDT us Toi Hewitt MD CHEMISTRY & BLOOD GAS ORDERABL ES Final Result Performing Organization Address [facility]/ZIP Co de Phone Number [facility] [address] [place] [address] * ALKALINE PHOSPHATASE (04/18/2021 5:53 EDT) Alkaline Phosphatase 65 38 - 126 U/L 04/18/2021 6:30 EDT [facility] Blood VENOUS BLOOD / Unknown Venipuncture / Unknown 04/18/2021 5:53 EDT 04/18/2021 6:13 EDT us Toi Hewitt MD CHEMISTRY & BLOOD GAS ORDERABL ES Final Result Performing Organization Address City/[facility]/ZIP Co de Phone Number [facility] [address] [place] [address] * BILIRUBIN, TOTAL (04/18/2021 5:53 EDT) Bilirubin, Total 0.6 <1.4 mg/dL 04/18/2021 6:30 EDT [facility] Blood VENOUS BLOOD / Unknown Venipuncture / Unknown 04/18/2021 5:53 EDT 04/18/2021 6:13 EDT us Toi Hewitt MD CHEMISTRY & BLOOD GAS ORDERABL ES Final Result Performing Organization Address City/[facility]/ZIP Co de Phone Number [facility] [address] [place] [address] * MAGNESIUM (04/18/2021 5:53 EDT) Magnesium 2.1 1.7 - 2.8 mg/dL 04/18/2021 6:30 EDT [facility] Blood VENOUS BLOOD / Unknown Venipuncture / Unknown 04/18/2021 5:53 EDT 04/18/2021 6:13 EDT us Toi Hewitt MD CHEMISTRY & BLOOD GAS ORDERABL ES Final Result Performing Organization Address [facility] Co de Phone Number [facility] [address] [place] [address] * (ABNORMAL) COMPLETE BLOOD COUNT AND DIFFERENTIAL (04/18/2021 5:53 EDT) WBC 10.11 4.00 - 12.40 K/cmm 04/18/2021 6:23 [facility] RBC 3.59(L) 3.86 - 5.04 M/cmm 04/18/2021 6:23 [facility] Hemoglobin 10.4(L) 11.6 - 15.2 gm/dL 04/18/2021 6:23 [facility] HCT 32.6(L) 34.9 - 44.4 % 04/18/2021 6:23 [facility] MCV 91 81 - 98 fl 04/18/2021 6:23 [facility] MCH 29.0 26.7 - 33.3 pg 04/18/2021 6:23 [facility] MCHC 31.9(L) 32.1 - 35.9 gm/dL 04/18/2021 6:23 [facility] RDW-CV 15.1(H) <14.7 % 04/18/2021 6:23 [facility] RDW-SD 50.0 <50.4 fl 04/18/2021 6:23 [facility] PLT 355 141 - 377 K/cmm 04/18/2021 6:23 [facility] MPV 9.1(L) 9.5 - 12.7 fl 04/18/2021 6:23 [facility] % Neutrophils 61.0 % 04/18/2021 6:23 [facility] % Lymphocytes 29.7 % 04/18/2021 6:23 [facility] % Monocytes 6.8 % 04/18/2021 6:23 [facility] % Eosinophils 1.4 % 04/18/2021 6:23 [facility] % Basophils 0.6 % 04/18/2021 6:23 [facility] % Immature Grans 0.5 % 04/18/20 6:23 [facility] Absolute Neutrophils 6.17 2.20 - 8.85 K/cmm 04/18/2021 6:23 [facility] Absolute Lymphocytes 3.00 1.09 - 3.30 K/cmm 04/18/2021 6:23 [facility] Absolute Monocytes 0.69 0.10 - 0.80 K/cmm 04/18/2021 6:23 [facility] Absolute Eosinophils 0.14 0.03 - 0.61 K/cmm 04/18/2021 6:23 [facility] ABS Basophils 0.06 0.01 - 0.11 K/cmm 04/18/2021 6:23 [facility] Absolute Immature Grans 0.05 0.00 - 0.06 K/cmm 04/18/2021 6:23 [facility] Type of Differential: Auto 04/18/2021 6:23 [facility] Blood VENOUS BLOOD / Unknown Venipuncture / Unknown 04/18/2021 5:53 EDT 04/18/2021 6:13 EDT us Toi Hewitt MD PACKAGES & DNA PROBE ORDERABLE S Final Result Performing Organization Address [facility] Co de Phone Number [facility] [address] [place] [address] * CREATININE (04/18/2021 5:53 EDT) Creatinine 0.69 0.52 - 1.04 mg/dL 04/18/2021 6:30 EDT [facility] eGFR 95 >60 mL/min/1.7 3m2 04/18/2021 6:30 EDT [facility] Comment:eGFR calculated en hanna CKD-EPI equation for non- Americans. Multiply eGFR by 1.16 for patients. Blood VENOUS BLOOD / Unknown Venipuncture / Unknown 04/18/2021 5:53 EDT 04/18/2021 6:13 EDT us Toi Hewitt MD CHEMISTRY & BLOOD GAS ORDERABL ES Final Result Performing Organization Address [facility] Co de Phone Number [facility] [address] [place] [address] * ECG REPORT - SCANNED (04/17/2021 14:38 EDT) 04/17/2021 14:3 8 EDT us [employer] Doctor PROCEDURE/MINOR SURGICAL OR DERABLES Final Result * ELECTROLYTES (04/17/2021 5:43 EDT) Sodium 141 136 - 145 mEq/L 04/17/2021 6:13 EDT [facility] Potassium 4.9 3.5 - 5.0 mEq/L 04/17/2021 6:13 EDT [facility] Chloride 107 96 - 110 mEq/L 04/17/2021 6:13 EDT [facility] CO2 Total 27 22 - 32 mEq/L 04/17/2021 6:13 EDT [facility] Blood VENOUS BLOOD / Unknown Venipuncture / Unknown 04/17/2021 5:43 EDT 04/17/2021 5:53 EDT us Shirley Birmingham MD CHEMISTRY & BLOOD GAS ORDERABLES Final Result [facility] [address] [place] [address] * PHOSPHORUS (04/17/2021 5:43 EDT) Phosphorus 2.6 2.5 - 4.5 mg/dL 04/17/2021 6:13 EDT [facility] Blood VENOUS BLOOD / Unknown Venipuncture / Unknown 04/17/2021 5:43 EDT 04/17/2021 5:53 EDT us Jhon Rdz MD CHEMISTRY & BLOOD GAS ORDE RABLES Final Result Performing Organization Address City/[facility]/ZIP Co de Phone Number [facility] [address] [place] [address] * AST (04/17/2021 5:43 EDT) AST 21 15 - 46 U/L 04/17/2021 6:13 EDT [facility] Blood VENOUS BLOOD / Unknown Venipuncture / Unknown 04/17/2021 5:43 EDT 04/17/2021 5:53 EDT us Toi Hewitt MD CHEMISTRY & BLOOD GAS ORDERABL ES Final Result Performing Organization Address City/[facility]/ZIP Co de Phone Number [facility] [address] [place] [address] * ALT (04/17/2021 5:43 EDT) ALT 23 <35 U/L 04/17/2021 6:13 EDT [facility] Blood VENOUS BLOOD / Unknown Venipuncture / Unknown 04/17/2021 5:43 EDT 04/17/2021 5:53 EDT us Toi Hewitt MD CHEMISTRY & BLOOD GAS ORDERABL ES Final Result Performing Organization Address [facility] Co de Phone Number [facility] [address] [place] [address] * ALKALINE PHOSPHATASE (04/17/2021 5:43 EDT) Alkaline Phosphatase 58 38 - 126 U/L 04/17/2021 6:13 EDT [facility] Blood VENOUS BLOOD / Unknown Venipuncture / Unknown 04/17/2021 5:43 EDT 04/17/2021 5:53 EDT us Toi Hewitt MD CHEMISTRY & BLOOD GAS ORDERABL ES Final Result Performing Organization Address [facility] de Phone Number [facility] [address] [place] [address] * BILIRUBIN, TOTAL (04/17/2021 5:43 EDT) Bilirubin, Total 0.7 <1.4 mg/dL 04/17/2021 6:13 EDT [facility] Blood VENOUS BLOOD / Unknown Venipuncture / Unknown 04/17/2021 5:43 EDT 04/17/2021 5:53 EDT us Toi Hewitt MD CHEMISTRY & BLOOD GAS ORDERABL ES Final Result Performing Organization Address [facility] Co de Phone Number [facility] [address] [place] [address] * MAGNESIUM (04/17/2021 5:43 EDT) Magnesium 2.7 1.7 - 2.8 mg/dL 04/17/2021 6:13 EDT [facility] Blood VENOUS BLOOD / Unknown Venipuncture / Unknown 04/17/2021 5:43 EDT 04/17/2021 5:53 EDT us Toi Hewitt MD CHEMISTRY & BLOOD GAS ORDERABL ES Final Result [facility] [address] [place] [address] * (ABNORMAL) COMPLETE BLOOD COUNT AND DIFFERENTIAL (04/17/2021 5:43 EDT) WBC 9.96 4.00 - 12.40 K/cmm 04/17/2021 5:59 EDT [facility] RBC 3.49(L) 3.86 - 5.04 M/cmm 04/17/2021 5:59 T [facility] Hemoglobin 10.2(L) 11.6 - 15.2 gm/dL 04/17/2021 5:59 [facility] HCT 30.0(L) 34.9 - 44.4 % 04/17/2021 5:[address] [facility] MCV 86 81 - 98 fl 04/17/2021 5:59 EDT [facility] MCH 29.2 26.7 - 33.3 pg 04/17/2021 5:59 [facility] MCHC 34.0 32.1 - 35.9 gm/dL 04/17/2021 5:59 [facility] RDW-CV 14.8(H) <14.7 % 04/17/2021 5:59 [facility] RDW-SD 45.9 <50.4 fl 04/17/2021 5:59 EDT [facility] PLT 318 141 - 377 K/cmm 04/17/2021 5:59 [facility] MPV 9.1(L) 9.5 - 12.7 fl 04/17/2021 5:59 [facility] % Neutrophils 78.0 % 04/17/2021 5:59 [facility] % Lymphocytes 15.0 % 04/17/2021 5:59 [facility] % Monocytes 5.4 % 04/17/2021 5:59 [facility] % Eosinophils 0.4 % 04/17/2021 5:59 EDT [facility] % Basophils 0.4 % 04/17/2021 5:59 EDT [facility] % Immature Grans 0.8 % 04/17/20 5:59 EDT [facility] Absolute Neutrophils 7.77 2.20 - 8.85 K/cmm 04/17/2021 5:59 T [facility] Absolute Lymphocytes 1.49 1.09 - 3.30 K/cmm 04/17/2021 5:59 EDT [facility] Absolute Monocytes 0.54 0.10 - 0.80 K/cmm 04/17/2021 5:59 EDT [facility] Absolute Eosinophils 0.04 0.03 - 0.61 K/cmm 04/17/2021 5:59 EDT [facility] ABS Basophils 0.04 0.01 - 0.11 K/cmm 04/17/2021 5:59 EDT [facility] Absolute Immature Grans 0.08(H) 0.00 - 0.06 K/cmm 04/17/2021 5:59 [facility] Type of Differential: Auto 04/17/2021 5:59 [facility] Blood VENOUS BLOOD / Unknown Venipuncture / Unknown 04/17/2021 5:43 EDT 04/17/2021 5:53 EDT us Toi Hewitt MD PACKAGES & DNA PROBE ORDERABLE S Final Result [facility] [address] [place] [address] * CREATININE (04/17/2021 5:43 EDT) Creatinine 0.68 0.52 - 1.04 mg/dL 04/17/2021 6:13 T [facility] eGFR 95 >60 mL/min/1.7 3m2 04/17/2021 6:13 T [facility] Comment:eGFR calculated en hanna CKD-EPI equation for non- Americans. Multiply eGFR by 1.16 for patients. Blood VENOUS BLOOD / Unknown Venipuncture / Unknown 04/17/2021 5:43 EDT 04/17/2021 5:53 EDT Toi Hewitt MD CHEMISTRY & BLOOD GAS ORDERABL ES Final Result Performing Organization Address [facility] de Phone Number [facility] [address] [place] [address] * ELECTROLYTES (04/17/2021 0:01 EDT) Sodium 140 136 - 145 mEq/L 04/17/2021 0:32 EDT [facility] Potassium 4.1 3.5 - 5.0 mEq/L 04/17/2021 0:32 EDT [facility] Chloride 104 96 - 110 mEq/L 04/17/2021 0:32 EDT [facility] CO2 Total 29 22 - 32 mEq/L 04/17/2021 0:32 EDT [facility] Blood VENOUS BLOOD / Unknown Venipuncture / Unknown 04/17/2021 0:01 EDT 04/17/2021 0:04 EDT Shirley Birmingham MD CHEMISTRY & BLOOD GAS ORDERABLES Final Result Performing Organization Address [facility] Co de Phone Number [facility] [address] [place] [address] * ELECTROLYTES (04/16/2021 14:10 EDT) Sodium 141 136 - 145 mEq/L 04/16/2021 15:27 EDT [facility] Potassium 3.9 3.5 - 5.0 mEq/L 04/16/2021 15:27 EDT [facility] Chloride 102 96 - 110 mEq/L 04/16/2021 15:27 EDT [facility] CO2 Total 30 22 - 32 mEq/L 04/16/2021 15:27 EDT [facility] Blood VENOUS BLOOD / Unknown Venipuncture / Unknown 04/16/2021 14:10 EDT 04/16/2021 14:59 EDT Shirley Birmingham MD CHEMISTRY & BLOOD GAS ORDERABLES Final Result [facility] [address] [place] [address] * ECG REPORT - SCANNED (04/16/2021 12:01 EDT) 04/16/2021 12:0 1 EDT [employer] Doctor PROCEDURE/MINOR SURGICAL OR DERABLES Final Result * ECG REPORT - SCANNED (04/16/2021 11:58 EDT) 04/16/2021 11:5 8 EDT [employer] Doctor PROCEDURE/MINOR SURGICAL OR DERABLES Final Result * EKG 12-LEAD (04/16/2021 10:52 EDT) 04/16/2021 10:5 2 EDT Narrative [facility] EKG - 04/21/2021 12:07 EDT ? [facility] ? Test Date: ?2021-04-16 Pat Name: ? ERIKA HUSAIN ? Department: ?? Manoj Townsend ? Room: ? BS322 Gender: ? Female ? 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 [id number] : ?1960 ? Requested By: JUMANA PEREZ Order Number: [id number] ? Reading MD: ?? SAMIA CHIANG MD ? Measurements Intervals ?[place] ? Rate: ? 96 ? P: ?46 MD: ? 148 ?QRS: ?40 QRSD: ? 102 ?T: ?10 QT: ? 370 ? QTc: ?469 ? Interpretive Statements SINUS RHYTHM NONSPECIFIC T-WAVE ABNORMALITY I reviewed the tracing and have either agreed or edited the findings in this report. Electronically Signed On 04-21-2021 12:07:09 EDT by SAMIA CHIANG MD. 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 Electronically Signed On 04-21-2021 12:07:09 EDT by SAMIA LEMUS. Toi Hewitt MD CARDIAC ECG ORDERABLES Final R esult Performing Organization Address City/[facility]/ZIP Co de Phone Number [facility] EKG * CALPROTECTIN, F (04/16/2021 8:17 EDT) Calprotectin,F 27.0 <=50.0 (Normal) mcg/g 04/19/2021 11:05 EDT [facility] Comment: Test Performed by: [place] [id number] Escalator Mechanic: Hermann Parrish M.D. Ph.D.; CLIA# [id number] Feces SPECIMEN FROM RECTUM / Unknown Stool Collect / Unknown 04/16/2021 8:17 EDT 04/16/2021 8:47 EDT Toi Hewitt MD GEN LAB UNIT COLLECT ORDERABLE S Final Result Performing Organization Address City/[facility]/ZIP Co de Phone Number [facility] [place] [address] * GIARDIA AND CRYPTOSPORIDIUM ANTIGENS (04/16/2021 8:17 EDT) Giardia and Cryptosporidium Cryptosporidium Antigen Neg and Giardia Antigen Neg Cryptosporidium Antigen Neg and Giardia Antigen Neg 8:53 EDT [facility] Feces SPECIMEN FROM RECTUM / Unknown Stool Collect / Unknown 04/16/2021 8:17 EDT 04/16/2021 8:47 EDT us Nel Borges MD MPH MICROBIOLOGY - GENERAL ORDERABLES Final Result Performing Organization Address City/[facility]/ZIP Co de Phone Number [facility] [address] [place] [address] * FECAL BACTERIAL PATHOGENS BY PCR (04/16/2021 8:17 EDT) Salmonella PCR Negative Negative 04/16/2021 13:40 EDT [facility] Shigella/Enteroin vasive E. coli Negative Negative 04/16/2021 13:40 EDT [facility] HN LAB CAMPYLOBACTER PCR Negative Negative 04/16/2021 13:40 EDT [facility] Shiga Toxin PCR Negative Negative 13:40 EDT [facility] Feces SPECIMEN FROM RECTUM / Unknown Stool Collect / Unknown 04/16/2021 8:17 EDT 04/16/2021 8:47 EDT us Nel Borges MD MPH MICROBIOLOGY - GENERAL ORDERABLES Final Result Performing Organization Address [facility] Co de Phone Number [facility] [address] [place] [address] * UNUSUAL FECAL PATHOGEN CULTURE (04/16/2021 8:16 EDT) Organism ID No Aeromonas species, Plesiomonas shigelloides, Yersinia enterocolitica, or Vibrio specis isolated 04/18/2021 14:30 EDT [facility] Feces SPECIMEN FROM RECTUM / Unknown Stool Collect / Unknown 04/16/2021 8:16 EDT 04/16/2021 8:47 EDT Jhon Rdz MD MICROBIOLOGY - GENERAL ORD ERABLES Final Result Performing Organization Address City/[facility]/ZIP Co de Phone Number [facility] [address] [place] [address] * (ABNORMAL) C. DIFFICILE PCR (04/16/2021 8:16 EDT) C. difficile PCR Positive(A ) Negative 04/16/2021 13:40 EDT [facility] Feces SPECIMEN FROM RECTUM / Unknown Stool Collect / Unknown 04/16/2021 8:16 EDT 04/16/2021 8:47 EDT us Nel Borges MD MPH MICROBIOLOGY - GENERAL ORDERABLES Final Result Performing Organization Address [facility] Co de Phone Number [facility] [address] [place] [address] * (ABNORMAL) CALCIUM (04/16/2021 7:32 EDT) [facility] Calcium 8.1(L) 8.5 - 10.5 mg/dL 04/16/2021 8:07 EDT [facility] Calculated Calcium 8.9 8.5 - 10.5 mg/dL 04/16/2021 8:07 EDT [facility] Comment:Slight hemolysis tarun ntified, interpret with caution as results may be affected due to hemolysis. Blood VENOUS BLOOD / Unknown Finger/Heel Stick / Unknown 04/16/2021 7:32 EDT 04/16/2021 7:38 EDT us Jhon Rdz MD CHEMISTRY & BLOOD GAS ORDHilton [facility] Final Result Performing Organization Address [facility] Co de Phone Number [facility] [address] [place] [address] * PHOSPHORUS (04/16/2021 7:32 EDT) Pathologist [facility] Phosphorus 3.5 2.5 - 4.5 mg/dL 04/16/2021 8:07 EDT [facility] Comment:Slight hemolysis tarun ntified, interpret with caution as results may be affected due to hemolysis. Blood VENOUS BLOOD / Unknown Finger/Heel Stick / Unknown 04/16/2021 7:32 EDT 04/16/2021 7:38 EDT us Jhon Rdz MD CHEMISTRY & BLOOD GAS ORDE RABLES Final Result Performing Organization Address City/[facility]/ZIP Co de Phone Number [facility] [address] [place] [address] * ELECTROLYTES (04/16/2021 7:32 EDT) Sodium 143 136 - 145 mEq/L 04/16/2021 8:07 EDT [facility] Potassium 5.0 3.5 - 5.0 mEq/L 04/16/2021 8:07 EDT [facility] Comment:Slight hemolysis tarun ntified, interpret with caution as hemolysis will elevate potassium result. Chloride 108 96 - 110 mEq/L 04/16/2021 8:07 EDT [facility] CO2 Total 26 22 - 32 mEq/L 04/16/2021 8:07 EDT [facility] Blood VENOUS BLOOD / Unknown Finger/Heel Stick / Unknown 04/16/2021 7:32 EDT 04/16/2021 7:38 EDT us Shirley Birmingham MD CHEMISTRY & BLOOD GAS ORDERABLES Final Result Performing Organization Address [facility] Co de Phone Number [facility] [address] [place] [address] * AST (04/16/2021 7:32 EDT) AST 33 15 - 46 U/L 04/16/2021 8:07 EDT [facility] Comment:Slight hemolysis tarun ntified, interpret with caution as results may be affected due to hemolysis. Blood VENOUS BLOOD / Unknown Finger/Heel Stick / Unknown 04/16/2021 7:32 EDT 04/16/2021 7:38 EDT us Toi Hewitt MD CHEMISTRY & BLOOD GAS ORDERABL ES Final Result Performing Organization Address [facility]/ZIP Co de Phone Number [facility] [address] [place] [address] * ALT (04/16/2021 7:32 EDT) ALT 26 <35 U/L 04/16/2021 8:07 EDT [facility] Blood VENOUS BLOOD / Unknown Finger/Heel Stick / Unknown 04/16/2021 7:32 EDT 04/16/2021 7:38 EDT us Toi Hewitt MD CHEMISTRY & BLOOD GAS ORDERABL ES Final Result Performing Organization Address City/[facility] Co de Phone Number [facility] [address] [place] [address] * ALKALINE PHOSPHATASE (04/16/2021 7:32 EDT) Alkaline Phosphatase 50 38 - 126 U/L 04/16/2021 8:08 EDT [facility] Comment:Slight hemolysis tarun ntified, hemolysis will decrease ALKP result. Interpret with caution as results may be affected due to hemolysis. Blood VENOUS BLOOD / Unknown Finger/Heel Stick / Unknown 04/16/2021 7:32 EDT 04/16/2021 7:38 EDT us Toi Hewitt MD CHEMISTRY & BLOOD GAS ORDERABL ES Final Result Performing Organization Address [facility] Co de Phone Number [facility] [address] [place] [address] * BILIRUBIN, TOTAL (04/16/2021 7:32 EDT) Bilirubin, Total 1.3 <1.4 mg/dL 04/16/2021 8:01 EDT [facility] Blood VENOUS BLOOD / Unknown Finger/Heel Stick / Unknown 04/16/2021 7:32 EDT 04/16/2021 7:38 EDT us Toi Hewitt MD CHEMISTRY & BLOOD GAS ORDERABL ES Final Result Performing Organization Address [facility]/ZIP Co de Phone Number [facility] [address] [place] [address] * MAGNESIUM (04/16/2021 7:32 EDT) Pathologist [facility] Magnesium 2.1 1.7 - 2.8 mg/dL 04/16/2021 8:07 T [facility] Comment:Slight hemolysis tarun ntified, interpret with caution as results may be affected due to hemolysis. Blood VENOUS BLOOD / Unknown Finger/Heel Stick / Unknown 04/16/2021 7:32 EDT 04/16/2021 7:38 EDT us Toi Hewitt MD CHEMISTRY & BLOOD GAS ORDERABL ES Final Result [facility] [address] [place] [address] * (ABNORMAL) COMPLETE BLOOD COUNT AND DIFFERENTIAL (04/16/2021 7:32 EDT) [facility] WBC 7.02 4.00 - 12.40 K/cmm 04/16/2021 7:52 [facility] RBC 3.32(L) 3.86 - 5.04 M/cmm 04/16/2021 7:52 [facility] Hemoglobin 9.8(L) 11.6 - 15.2 gm/dL 04/16/2021 7:52 [facility] HCT 28.8(L) 34.9 - 44.4 % 04/16/2021 7:52 [facility] MCV 87 81 - 98 fl 04/16/2021 7:52 [facility] MCH 29.5 26.7 - 33.3 pg 04/16/2021 7:52 [facility] MCHC 34.0 32.1 - 35.9 gm/dL 04/16/2021 7:52 [facility] RDW-CV 15.1(H) <14.7 % 04/16/2021 7:52 [facility] RDW-SD 47.6 <50.4 fl 04/16/2021 7:52 [facility] PLT 306 141 - 377 K/cmm 04/16/2021 7:52 [facility] MPV 9.2(L) 9.5 - 12.7 fl 04/16/2021 7:52 [facility] % Neutrophils 66.3 % 04/16/2021 7:52 [facility] % Lymphocytes 18.2 % 04/16/2021 7:52 [facility] % Monocytes 7.7 % 04/16/2021 7:52 [facility] % Eosinophils 6.0 % 04/16/2021 7:52 [facility] % Basophils 0.7 % 04/16/2021 7:52 [facility] % Immature Grans 1.1 % 04/16/20 7:52 [facility] Absolute Neutrophils 4.65 2.20 - 8.85 K/cmm 04/16/2021 7:52 [facility] Absolute Lymphocytes 1.28 1.09 - 3.30 K/cmm 04/16/2021 7:52 [facility] Absolute Monocytes 0.54 0.10 - 0.80 K/cmm 04/16/2021 7:52 [facility] Absolute Eosinophils 0.42 0.03 - 0.61 K/cmm 04/16/2021 7:52 [facility] ABS Basophils 0.05 0.01 - 0.11 K/cmm 04/16/2021 7:52 [facility] Absolute Immature Grans 0.08(H) 0.00 - 0.06 K/cmm 04/16/2021 7:52 [facility] Type of Differential: Auto 04/16/2021 7:52 [facility] Blood VENOUS BLOOD / Unknown Finger/Heel Stick / Unknown 04/16/2021 7:32 EDT 04/16/2021 7:38 EDT us Toi Hewitt MD PACKAGES & DNA PROBE ORDERABLE S Final Result [facility] [address] [place] [address] * CREATININE (04/16/2021 7:32 EDT) Creatinine 0.70 0.52 - 1.04 mg/dL 04/16/2021 8:01 EDT [facility] eGFR 94 >60 mL/min/1.7 3m2 04/16/2021 8:01 EDT [facility] Comment:eGFR calculated en hanna CKD-EPI equation for non- Americans. Multiply eGFR by 1.16 for patients. Blood VENOUS BLOOD / Unknown Finger/Heel Stick / Unknown 04/16/2021 7:32 EDT 04/16/2021 7:38 EDT Toi Hewitt MD CHEMISTRY & BLOOD GAS ORDERABL ES Final Result Performing Organization Address City/[facility]/ZIP Co de Phone Number [facility] [address] [place] [address] * (ABNORMAL) ELECTROLYTES (04/15/2021 23:59 EDT) Sodium 144 136 - 145 mEq/L 04/16/2021 1:02 EDT [facility] Potassium 5.3(H) 3.5 - 5.0 mEq/L 04/16/2021 1:02 EDT [facility] Comment:Slight hemolysis tarun ntified, interpret with caution as hemolysis will elevate potassium result. Chloride 110 96 - 110 mEq/L 04/16/2021 1:02 EDT [facility] CO2 Total 21(L) 22 - 32 mEq/L 04/16/2021 1:02 EDT [facility] Blood VENOUS BLOOD / Unknown Venipuncture / Unknown 04/15/2021 23:59 EDT 04/16/2021 0:02 EDT us Shirley Birmingham MD CHEMISTRY & BLOOD GAS ORDERABLES Final Result [facility] [address] [place] [address] * PHOSPHORUS (04/15/2021 15:43 EDT) Phosphorus 3.0 2.5 - 4.5 mg/dL 04/15/2021 16:02 EDT [facility] Blood VENOUS BLOOD / Unknown Venipuncture / Unknown 04/15/2021 15:43 EDT 04/15/2021 15:46 EDT us Jhon Rdz MD CHEMISTRY & BLOOD GAS ORDE RABLES Final Result Performing Organization Address City/[facility]/ZIP Co de Phone Number [facility] [address] [place] [address] * MAGNESIUM (04/15/2021 15:43 EDT) Magnesium 2.4 1.7 - 2.8 mg/dL 04/15/2021 16:01 EDT [facility] Blood VENOUS BLOOD / Unknown Venipuncture / Unknown 04/15/2021 15:43 EDT 04/15/2021 15:46 EDT us Jhon Rdz MD CHEMISTRY & BLOOD GAS ORDE RABAARON Final Result Performing Organization Address City/[facility] Co de Phone Number [facility] [address] [place] [address] * ELECTROLYTES (04/15/2021 15:43 EDT) Sodium 141 136 - 145 mEq/L 04/15/2021 16:01 EDT [facility] Potassium 3.9 3.5 - 5.0 mEq/L 04/15/2021 16:01 EDT [facility] Chloride 101 96 - 110 mEq/L 04/15/2021 16:01 EDT [facility] CO2 Total 28 22 - 32 mEq/L 04/15/2021 16:01 EDT [facility] Blood VENOUS BLOOD / Unknown Venipuncture / Unknown 04/15/2021 15:43 EDT 04/15/2021 15:46 EDT us Jhon Rdz MD CHEMISTRY & BLOOD GAS ORDE RABLES Final Result [facility] [address] [place] [address] * (ABNORMAL) LACTIC ACID (04/15/2021 15:43 EDT) Pathologist [facility] Lactic Acid 2.5(HH) <=2.0 mmol/L 04/15/2021 16:19 EDT [facility] Blood VENOUS BLOOD / Unknown Venipuncture / Unknown 04/15/2021 15:43 EDT 04/15/2021 15:46 EDT Dg Collins MD CHEMISTRY & BLOOD GAS ORDERABLES Final Result Performing Organization Address City/[facility]/ZIP Co de Phone Number [facility] [address] [place] [address] * EXPANDED RESPIRATORY VIRAL PANEL, PCR (DOES NOT INCLUDE INFLUENZA OR RSV) (04/15/2021 14:36 EDT) [facility] Paraflu Type 1 Rslt (PF1RES) Negative Negative 04/15/2021 20:52 EDT [facility] Paraflu Type 2 Rslt (PF2RES) Negative Negative 04/15/2021 20:52 EDT [facility] Paraflu Type 3 Rslt (PF3RES) Negative Negative 04/15/2021 20:52 EDT [facility] Paraflu Type 4 Rslt Negative Negative 04/15 20:52 EDT [facility] Rhinovirus RNA Rslt (RVRES) Negative Negative 04/15/2021 20:52 EDT [facility] Metapneumovirus RNA Rslt (HMVRES) Negative Negative 04/15/2021 20:52 EDT [facility] Adenovirus DNA Rslt (ADVRES) Negative Negative 04/15/2021 20:52 EDT [facility] Swab ENTIRE NASOPHARYNX / Unknown Swab / Unknown 04/15/2021 14:36 EDT 04/15/2021 15:15 EDT Shirley Birmingham MD MICROBIOLOGY - GENERAL ORDERABLE S Final Result Performing Organization Address City/[facility]/ZIP Co de Phone Number [facility] [address] [place] [address] * INFLUENZA A AND B,RSV PCR (04/15/2021 14:36 EDT) FLU A RNA Result (FLARES) Negative Negative 04/15/2021 20:52 EDT [facility] FLU B RNA Result (FLBRES) Negative Negative 04/15/2021 20:52 EDT [facility] RSV RNA Result (RSVRES) Negative Negative 04/15/2021 20:52 EDT [facility] Performing Lab [facility] 04/15/2021 20:52 EDT [facility] Swab ENTIRE NASOPHARYNX / Unknown Swab / Unknown 04/15/2021 14:36 EDT 04/15/2021 15:15 EDT Shirley Birmingham MD MICROBIOLOGY - GENERAL ORDERABLE S Final Result Performing Organization Address [facility] Co de Phone Number [facility] [address] [place] [address] * CT ABDOMEN PELVIS W CONTRAST (04/15/2021 [...] soft tissue gas. Musculoskeletal: No significant abnormalities. Svp Of Digital: No additional findings Procedure Note Yonathan Obregon [...] soft tissue gas. Musculoskeletal: No significant abnormalities. Svp Of Digital: No additional findings IMPRESSION 1. No bowel [...] andagree with the findings. Shirley Birmingham MD IM CT ORDERABLES Final Result * XR ABDOMEN 1 VIEW (04/15/2021 13:10 [...] the above interpretation andagree with the findings. us Shirley Birmingham MD IMG DIAGNOSTIC IMAGING ORDERABLE S Final Result * HOLD SST (04/15/2021 11:31 EDT) Hold Hold 04/15/2021 12:46 EDT [facility] Blood VENOUS BLOOD / Unknown 04/15/2021 11:31 EDT 04/15/2021 11:31 EDT us Jhon Rdz MD LAB INFO SERVICE AND SUPPO RT & PHONE RESULT Final Result Performing Organization Address City/[facility]/ZIP Co de Phone Number [facility] [address] [place] [id number] * HOLD BLUE TOP (04/15/2021 11:31 EDT) Hold Hold 04/15/2021 12:46 EDT [facility] Blood VENOUS BLOOD / Unknown 04/15/2021 11:31 EDT 04/15/2021 11:31 EDT us Jhon Rdz MD LAB INFO SERVICE AND SUPPO RT & PHONE RESULT Final Result [facility] [address] [place] [address] * HIV 1/2 ANTIGEN AND ANTIBODY, 4TH GENERATION (04/15/2021 11:31 EDT) HIV 1 and 2 Antibody/p24 Antigen, 4th Generation Negative Negative 04/15/2021 13:52 EDT [facility] Comment: If acute HIV-1 infection is suspected in a high risk ??patient, submit plasma specimen for HIV-1 RNA quantitation test. Fourth Generation assay performed on the Siemens KFx [employer]. Blood VENOUS BLOOD / Unknown 04/15/2021 11:31 EDT 04/15/2021 11:31 EDT us Shirley Birmingham MD IMMUNOLOGY AND SEROLOGY ORDERABL ES Final Result [facility] [address] [place] [address] * EKG 12-LEAD (04/15/2021 11:06 EDT) 04/15/2021 11:0 6 EDT Narrative [facility] EKG - 04/21/2021 11:48 EDT ? [facility] ? Test Date: ?2021-04-15 Pat Name: ? ERIKA HUSAIN ? Department: ?? Man[facility] Townsend ? Room: ? Gender: ? Female ? 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 [id number] : ?1960 ? Requested By: SHIRLEY BIRMINGHAM MD Order Number: ?Reading : ?? SAMIA CHIANG MD ? Measurements Intervals ?Hamilton ? Rate: ? 94 ? P: ?49 MD: ? 149 ?QRS: ?12 QRSD: ? 114 ?T: ?36 QT: ? 381 ? QTc: ?479 ? Interpretive Statements SINUS RHYTHM MODERATE INTRAVENTRICULAR CONDUCTION DELAY NONSPECIFIC ST & T-WAVE ABNORMALITY I reviewed the tracing and have either agreed or edited the findings in this report. Electronically Signed On 04-21-2021 11:48:34 EDT by SAMIA CHIANG MD. Procedure Note Samia Chiang MD - 04/21/2021 [facility] Test Date: 2021-04-15 Pat Name: ERIKA HUSAIN Department: Manoj Townsend Room: Gender: Female Sound Engineer Audio Control: [id number] : 1960 Requested By: SHIRLEY BIRMINGHAM MD Order Number: Reading MD: SAMIA CHIANG MD Measurements Intervals Hamilton Rate: 94 P: 49 MD: 149 QRS: 12 QRSD: 114 T: 36 QT: 381 QTc: 479 Interpretive Statements SINUS RHYTHM MODERATE INTRAVENTRICULAR CONDUCTION DELAY NONSPECIFIC ST & T-WAVE ABNORMALITY I reviewed the tracing and have either agreed or edited the findings inthis report. Electronically Signed On 04-21-2021 11:48:34 EDT by SAMIA LEMUS. us Shirley Birmingham MD CARDIAC ECG ORDERABLES Final Res ult Performing Organization Address City/[facility]/ZIP Co de Phone Number [facility] EKG * (ABNORMAL) LACTIC ACID WITH REFLEX - USE FOR INITIAL SEPSIS EVALUATION (04/15/2021 10:22 EDT) Lactic Acid 5.8(HH) <=2.0 mmol/L 04/15/2021 11:32 EDT [facility] Blood VENOUS BLOOD / Unknown Venipuncture / Unknown 04/15/2021 10:22 EDT 04/15/2021 11:18 EDT us Dg Collins MD CHEMISTRY & BLOOD GAS ORDERABLES Final Result [facility] [address] [place] [id number] * CREATININE (04/15/2021 10:22 EDT) Creatinine 0.92 0.52 - 1.04 mg/dL 04/15/2021 11:26 EDT [facility] eGFR 68 >60 mL/min/1.7 3m2 04/15/2021 11:26 EDT [facility] Comment:eGFR calculated en hanna CKD-EPI equation for non- Americans. Multiply eGFR by 1.16 for patients. Blood VENOUS BLOOD / Unknown Venipuncture / Unknown 04/15/2021 10:22 EDT 04/15/2021 11:18 EDT Dg Collins MD CHEMISTRY & BLOOD GAS ORDERABLES Final Result [facility] [address] [place] [address] * BUN (04/15/2021 10:22 EDT) BUN 13 10 - 26 mg/dL 04/15/2021 11:26 EDT [facility] Blood VENOUS BLOOD / Unknown Venipuncture / Unknown 04/15/2021 10:22 EDT 04/15/2021 11:18 EDT Dg Collins MD CHEMISTRY & BLOOD GAS ORDERABLES Final Result Performing Organization Address [facility] Co de Phone Number [facility] [address] [place] [address] * ELECTROLYTES (04/15/2021 10:22 EDT) Sodium 142 136 - 145 mEq/L 04/15/2021 11:26 EDT [facility] Potassium 3.8 3.5 - 5.0 mEq/L 04/15/2021 11:26 EDT [facility] Chloride 103 96 - 110 mEq/L 04/15/2021 11:26 EDT [facility] CO2 Total 23 22 - 32 mEq/L 04/15/2021 11:26 EDT [facility] Blood VENOUS BLOOD / Unknown Venipuncture / Unknown 04/15/2021 10:22 EDT 04/15/2021 11:18 EDT us Dg Collins MD CHEMISTRY & BLOOD GAS ORDERABLES Final Result Performing Organization Address [facility]/ZIP Co de Phone Number [facility] [address] [place] [address] * (ABNORMAL) COMPLETE BLOOD COUNT (04/15/2021 10:22 EDT) WBC 9.66 4.00 - 12.40 K/cmm 04/15/2021 11:16 [facility] RBC 3.94 3.86 - 5.04 M/cmm 04/15/2021 11:16 [facility] Hemoglobin 11.4(L) 11.6 - 15.2 gm/dL 04/15/2021 11:16 [facility] HCT 32.9(L) 34.9 - 44.4 % 04/15/2021 11:16 [facility] MCV 84 81 - 98 fl 04/15/2021 11:16 [facility] MCH 28.9 26.7 - 33.3 pg 04/15/2021 11:16 [facility] MCHC 34.7 32.1 - 35.9 gm/dL 04/15/2021 11:16 [facility] RDW-CV 14.6 <14.7 % 04/15/2021 11:16 [facility] RDW-SD 44.1 <50.4 fl 04/15/2021 11:16 [facility] PLT 437(H) 141 - 377 K/cmm 04/15/2021 11:16 [facility] MPV 9.3(L) 9.5 - 12.7 fl 04/15/2021 11:16 [facility] Blood VENOUS BLOOD / Unknown Venipuncture / Unknown 04/15/2021 10:22 EDT 04/15/2021 11:03 EDT us Dg Collins MD HEMATOLOGY & PF4 ORDERABLES Jessica l Result [facility] [address] [place] [address] * (ABNORMAL) MAGNESIUM (04/15/2021 10:22 EDT) Magnesium 1.4(L) 1.7 - 2.8 mg/dL 04/15/2021 11:26 [facility] Blood VENOUS BLOOD / Unknown Venipuncture / Unknown 04/15/2021 10:22 EDT 04/15/2021 11:18 EDT us Shirley Birmingham MD CHEMISTRY & BLOOD GAS ORDERABLES Final Result Performing Organization Address [facility]/ZIP Co de Phone Number [facility] [address] [place] [address] * TYPE AND SCREEN (04/15/2021 10:15 EDT) ABO AB 04/15/2021 17:23 EDT [facility] B[facility] BANK Rh Factor Positive 04/15/2021 17:23 EDT [facility] Antibody Screen Negative 04/15/2021 17:23 EDT [facility] Specimen Expires: 04/18/2021 @ 23:59 04/15/2021 17:23 EDT [facility] Blood VENOUS BLOOD / Unknown Venipuncture / Unknown 04/15/2021 10:15 EDT 04/15/2021 16:12 EDT us Shirley Birmingham MD BLOOD BANK TESTS Edited Result - Final Performing Organization Address [facility] Co de Phone Number [facility] B[facility] BANK [address] [facility] [place] [address] * (ABNORMAL) POCT GLUCOSE, INTERFACED (04/15/2021 10:05 EDT) Glucose, POC 102(H) 70 - 100 mg/dL 04/15/2021 10:10 EDT [facility] HN LAB POC COMMENT (GLUCOSE) Test Performed by Nursing Services 04/15/2021 10:10 EDT [facility] Blood CAPILLARY BLOOD / Unknown 04/15/2021 10:05 EDT 04/15/2021 10:10 EDT us Jhon Rdz MD POINT OF CARE TEST ORDERAB LES Final Result [facility] [address] [place] [address] * (ABNORMAL) PHOSPHORUS (04/15/2021 9:29 EDT) [facility] Phosphorus 2.2(L) 2.5 - 4.5 mg/dL 04/15/2021 11:08 EDT [facility] Blood VENOUS BLOOD / Unknown Venipuncture / Unknown 04/15/2021 9:29 EDT 04/15/2021 9:34 EDT Dg Collins MD CHEMISTRY & BLOOD GAS ORDERABLES Final Result Performing Organization Address [facility] Co de Phone Number [facility] [address] [place] [address] * TROPONIN I (04/15/2021 9:29 EDT) [facility] Troponin I (ng/mL) <0.034 <0.034 ng/mL 04/15/2021 10:04 EDT [facility] Blood VENOUS BLOOD / Unknown Venipuncture / Unknown 04/15/2021 9:29 EDT 04/15/2021 9:34 EDT Narrative [facility] - 04/15/2021 10:04 EDT The results of this assay can be falsely lowered due to the consumption of Biotin. us Shirley Birmingham MD CHEMISTRY & BLOOD GAS ORDERABLES Final Result Performing Organization Address [facility] Co de Phone Number [facility] [address] [place] [address] * EKG 12-LEAD (04/15/2021 9:20 EDT) 04/15/2021 9:20 EDT Narrative [facility] EKG - 04/17/2021 14:33 EDT ? [facility] ? Test Date: ?2021-04-15 Pat Name: ? ERIKA HUSAIN ? Department: ?? [facility] ? Room: ? BS322 Gender: ? Female ? 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 [id number] : ?1960 ? Requested By: JANDAL ALI Order Number: [id number] ? Reading MD: ?? CHRISTIAN NAYAK MD ? Measurements Intervals ?Hamilton ? Rate: ? 96 ? P: ? MD: ? 0 ?QRS: ?48 QRSD: ? 80 [...] Note Christian Nayak MD - 04/17/2021 [facility] Test Date: 2021-04-15 Pat Name: ERIKA HUSAIN Department: [address] Room: [facility] Gender: Female Sound Engineer Audio Control: [id number] : 1960 Requested By: RYLAN CONNOLLY Order Number: [id number] Reading MD: CHRISTIAN NAYAK MD Measurements Intervals Hamilton Rate: 96 P: MD: 0 QRS: 48 QRSD: 80 T: -28 QT: 366 QTc: 463 Interpretive Statements NORMAL SINUS RHYTHM LOW QRS VOLTAGE IN PRECORDIAL LEADS NONSPECIFIC T-WAVE ABNORMALITY Technically poor tracing - please repeat ECG I reviewed the tracing and have either agreed or edited the findings inthis report. Electronically Signed On 04-17-2021 14:33:29 EDT by CHRISTIAN APARICIO. Shirley Birmingham MD CARDIAC ECG ORDERABLES Final Res ult [facility] EKG * POCT GLUCOSE, INTERFACED (04/15/2021 7:25 EDT) Glucose, POC 100 70 - 100 mg/dL 04/15/2021 8:13 EDT [facility] HN LAB POC COMMENT (GLUCOSE) Test Performed by Nursing Services 04/15/2021 8:13 EDT [facility] Blood CAPILLARY BLOOD / Unknown 04/15/2021 7:25 EDT 04/15/2021 8:13 EDT us Jhon Rdz MD POINT OF CARE TEST ORDERAB LES Final Result Performing Organization Address City/[facility]/ZIP Co de Phone Number [facility] [address] [place] [address] * IBC (04/15/2021 5:43 EDT) Iron Binding Capacity 404 265 - 497 ug/dL 04/15/2021 8:54 EDT [facility] Blood VENOUS BLOOD / Unknown Venipuncture / Unknown 04/15/2021 5:43 EDT 04/15/2021 6:51 EDT us Shirley Birmingham MD CHEMISTRY & BLOOD GAS ORDERABLES Final Result Performing Organization Address [facility] Co de Phone Number [facility] [address] [place] [id number] * FERRITIN (04/15/2021 5:43 EDT) Ferritin 26 10 - 291 ng/mL 04/15/2021 10:56 EDT [facility] Blood VENOUS BLOOD / Unknown Venipuncture / Unknown 04/15/2021 5:43 EDT 04/15/2021 6:51 EDT us Shirley Birmingham MD CHEMISTRY & BLOOD GAS ORDERABLES Final Result Performing Organization Address City/[facility]/ZIP Co de Phone Number [facility] [address] [place] [address] * IRON (04/15/2021 5:43 EDT) Iron 92 37 - 170 ug/dL 04/15/2021 8:45 EDT [facility] Blood VENOUS BLOOD / Unknown Venipuncture / Unknown 04/15/2021 5:43 EDT 04/15/2021 6:51 EDT us Shirley Birmingham MD CHEMISTRY & BLOOD GAS ORDERABLES Final Result [facility] [address] [place] [address] * AST (04/15/2021 5:43 EDT) AST 29 15 - 46 U/L 04/15/2021 7:20 EDT [facility] Blood VENOUS BLOOD / Unknown Venipuncture / Unknown 04/15/2021 5:43 EDT 04/15/2021 6:51 EDT us Toi Hewitt MD CHEMISTRY & BLOOD GAS ORDERABL ES Final Result Performing Organization Address [facility] Co de Phone Number [facility] [address] [place] [address] * ALT (04/15/2021 5:43 EDT) ALT 26 <35 U/L 04/15/2021 7:20 EDT [facility] Blood VENOUS BLOOD / Unknown Venipuncture / Unknown 04/15/2021 5:43 EDT 04/15/2021 6:51 EDT Result Liz Hewitt MD CHEMISTRY & BLOOD GAS ORDERABL ES Final Result Performing Organization Address [facility]/ZIP Co de Phone Number [facility] [address] [place] [address] * ALKALINE PHOSPHATASE (04/15/2021 5:43 EDT) Alkaline Phosphatase 49 38 - 126 U/L 04/15/2021 7:20 EDT [facility] Blood VENOUS BLOOD / Unknown Venipuncture / Unknown 04/15/2021 5:43 EDT 04/15/2021 6:51 EDT us Toi Hewitt MD CHEMISTRY & BLOOD GAS ORDERABL ES Final Result Performing Organization Address [facility]/ZIP Co de Phone Number [facility] [address] [place] [address] * (ABNORMAL) BILIRUBIN, TOTAL (04/15/2021 5:43 EDT) [facility] Bilirubin, Total 1.8(H) <1.4 mg/dL 04/15/2021 7:20 EDT [facility] Blood VENOUS BLOOD / Unknown Venipuncture / Unknown 04/15/2021 5:43 EDT 04/15/2021 6:51 EDT us Toi Hewitt MD CHEMISTRY & BLOOD GAS ORDERABL ES Final Result Performing Organization Address [facility] Co de Phone Number [facility] [address] [place] [address] * (ABNORMAL) MAGNESIUM (04/15/2021 5:43 EDT) [facility] Magnesium <0.5(LL) 1.7 - 2.8 mg/dL 04/15/2021 7:33 EDT [facility] Blood VENOUS BLOOD / Unknown Venipuncture / Unknown 04/15/2021 5:43 EDT 04/15/2021 6:51 EDT us Toi Hewitt MD CHEMISTRY & BLOOD GAS ORDERABL ES Final Result Performing Organization Address [facility] de Phone Number [facility] [address] [place] [address] * (ABNORMAL) COMPLETE BLOOD COUNT AND DIFFERENTIAL (04/15/2021 5:43 EDT) [facility] WBC 8.75 4.00 - 12.40 K/cmm 04/15/2021 6:59 EDT [facility] RBC 3.64(L) 3.86 - 5.04 M/cmm 04/15/2021 6:59 EDT [facility] LABORATORY SERVICES Hemoglobin 10.6(L) 11.6 - 15.2 gm/dL 04/15/2021 6:59 EDT [facility] LABORATORY SERVICES HCT 30.2(L) 34.9 - 44.4 % 04/15/2021 6:59 EDT [facility] LABORATORY SERVICES MCV 83 81 - 98 fl 04/15/2021 6:59 [facility] LABORATORY SERVICES MCH 29.1 26.7 - 33.3 pg 04/15/2021 6:59 [facility] LABORATORY SERVICES MCHC 35.1 32.1 - 35.9 gm/dL 04/15/2021 6:59 [facility] LABORATORY SERVICES RDW-CV 14.6 <14.7 % 04/15/2021 6:59 [facility] LABORATORY SERVICES RDW-SD 43.6 <50.4 fl 04/15/2021 6:59 [facility] LABORATORY SERVICES PLT 342 141 - 377 K/cmm 04/15/2021 6:59 [facility] LABORATORY SERVICES MPV 9.6 9.5 - 12.7 fl 04/15/2021 6:59 [facility] LABORATORY SERVICES % Neutrophils 52.5 % 04/15/2021 6:59 [facility] LABORATORY SERVICES % Lymphocytes 35.7 % 04/15/2021 6:59 [facility] LABORATORY SERVICES % Monocytes 8.1 % 04/15/2021 6:59 [facility] LABORATORY SERVICES % Eosinophils 2.7 % 04/15/2021 6:59 [facility] LABORATORY SERVICES % Basophils 0.7 % 04/15/2021 6:59 [facility] LABORATORY SERVICES % Immature Grans 0.3 % 04/15/20 6:59 [facility] LABORATORY SERVICES Absolute Neutrophils 4.59 2.20 - 8.85 K/cmm 04/15/2021 6:59 [facility] LABORATORY SERVICES Absolute Lymphocytes 3.12 1.09 - 3.30 K/cmm 04/15/2021 6:59 [facility] LABORATORY SERVICES Absolute Monocytes 0.71 0.10 - 0.80 K/cmm 04/15/2021 6:59 [facility] LABORATORY SERVICES Absolute Eosinophils 0.24 0.03 - 0.61 K/cmm 04/15/2021 6:59 [facility] LABORATORY SERVICES ABS Basophils 0.06 0.01 - 0.11 K/cmm 04/15/2021 6:59 [facility] LABORATORY SERVICES Absolute Immature Grans 0.03 0.00 - 0.06 K/cmm 04/15/2021 6:59 EDT [facility] LABORATORY SERVICES Type of Differential: Auto 04/15/2021 6:59 EDT [facility] LABORATORY [facility] Blood VENOUS BLOOD / Unknown Venipuncture / Unknown 04/15/2021 5:43 EDT 04/15/2021 6:42 EDT us Toi Hewitt MD PACKAGES & DNA PROBE ORDERABLE S Final Result Performing Organization Address [facility] Co de Phone Number [facility] LABORATORY SERVICES [address] [place] [address] * CREATININE (04/15/2021 5:43 EDT) Creatinine 0.93 0.52 - 1.04 mg/dL 04/15/2021 7:20 EDT [facility] LABORATORY SERVICES eGFR 67 >60 mL/min/1.7 3m2 04/15/2021 7:20 EDT [facility] Comment:eGFR calculated en hanna CKD-EPI equation for non- Americans. Multiply eGFR by 1.16 for patients. Blood VENOUS BLOOD / Unknown Venipuncture / Unknown 04/15/2021 5:43 EDT 04/15/2021 6:51 EDT us Toi Hewitt MD CHEMISTRY & BLOOD GAS ORDERABL ES Final Result Performing Organization Address [facility] Co de Phone Number [facility] LABORATORY SERVICES [address] [place] [address] * (ABNORMAL) ELECTROLYTES (04/15/2021 5:43 EDT) Sodium 144 136 - 145 mEq/L 04/15/2021 7:20 EDT [facility]ORY [facility] Potassium 3.2(L) 3.5 - 5.0 mEq/L 04/15/2021 7:20 EDT [facility]OR[facility]ORY SERVICES Chloride 101 96 - 110 mEq/L 04/15/2021 7:20 EDT [facility]ORY [facility] CO2 Total 28 22 - 32 mEq/L 04/15/2021 7:20 EDT [facility]ORY [facility] Blood VENOUS BLOOD / Unknown Venipuncture / Unknown 04/15/2021 5:43 EDT 04/15/2021 6:51 EDT us Toi Hewitt MD CHEMISTRY & BLOOD GAS ORDERABL ES Final Result Performing Organization Address [facility] Co de Phone Number [facility]ORATORY SERVICES [address] [place] [address] * POCT GLUCOSE, INTERFACED (2021 23:43 EDT) Glucose, POC 83 70 - 100 mg/dL 04/15/2021 1:37 EDT [facility] LABORATORY SERVICES HN LAB POC COMMENT (GLUCOSE) Test Performed by Nursing Services 04/15/2021 1:37 EDT [facility]ORATORY [facility] Blood CAPILLARY BLOOD / Unknown 2021 23:43 EDT 04/15/2021 1:37 EDT Jhon Rdz MD POINT OF CARE TEST ORDERAB LES Final Result Performing Organization Address City/[facility] Co de Phone Number [facility]ORATORY SERVICES [address] [place] [address] * (ABNORMAL) ELECTROLYTES (2021 19:08 EDT) Sodium 143 136 - 145 mEq/L 2021 19:46 EDT [facility]ORY [facility] Potassium 3.1(L) 3.5 - 5.0 mEq/L 2021 19:46 EDT [facility]ORY [facility] Chloride 99 96 - 110 mEq/L 2021 19:46 EDT [facility]ORATORY SERVICES CO2 Total 30 22 - 32 mEq/L 2021 19:46 EDT [facility]ORY [facility] Blood VENOUS BLOOD / Unknown Venipuncture / Unknown 2021 19:08 EDT 2021 19:22 EDT Toi Hewitt MD CHEMISTRY & BLOOD GAS ORDERABL ES Final Result Performing Organization Address City/[facility]/ZIP Co de Phone Number [facility]ORATORY SERVICES [address] [place] [address] * BACTERIAL CULTURE, BLOOD (2021 19:08 EDT) Organism ID No Growth at 5 days 04/19/2021 19:30 EDT [facility]ORY [facility] Blood VENOUS BLOOD / Unknown Blood Culture / Unknown 2021 19:08 EDT 2021 19:27 EDT us Toi Hewitt MD MICROBIOLOGY - GENERAL ORDERAB LES Final Result Performing Organization Address City/[facility]/ZIP Co de Phone Number [facility] [address] [place] [address] * BACTERIAL CULTURE, BLOOD (2021 19:08 EDT) Organism ID No Growth at 5 days 04/19/2021 19:30 EDT [facility] Blood VENOUS BLOOD / Unknown Blood Culture / Unknown 2021 19:08 EDT 2021 19:26 EDT us Toi Hewitt MD MICROBIOLOGY - GENERAL ORDERAB LES Final Result Performing Organization Address City/[facility]/ZIP Co de Phone Number [facility]OR[facility]ORY SERVICES [address] [place] [address] * POCT GLUCOSE, INTERFACED (2021 19:03 EDT) Glucose, POC 77 70 - 100 mg/dL 2021 19:08 EDT [facility]OR[facility]ORY [facility] HN LAB POC COMMENT (GLUCOSE) Test Performed by Nursing Services 2021 19:08 EDT [facility] Blood CAPILLARY BLOOD / Unknown 2021 19:03 EDT 2021 19:08 EDT us Toi Hewitt MD POINT OF CARE TEST ORDERABLES Final Result Performing Organization Address City/[facility]/ZIP Co de Phone Number [facility]ORATORY [facility] [address] [place] [address] * EXPANDED RESPIRATORY VIRAL PANEL, PCR (DOES NOT INCLUDE INFLUENZA OR RSV) (2021 14:32 EDT) Paraflu Type 1 Rslt (PF1RES) Negative Negative 04/15/2021 20:44 EDT [facility] Paraflu Type 2 Rslt (PF2RES) Negative Negative 04/15/2021 20:44 EDT [facility] Paraflu Type 3 Rslt (PF3RES) Negative Negative 04/15/2021 20:44 EDT [facility] Paraflu Type 4 Rslt Negative Negative 04/15 20:44 EDT [facility] Rhinovirus RNA Rslt (RVRES) Negative Negative 04/15/2021 20:44 EDT [facility] Metapneumovirus RNA Rslt (HMVRES) Negative Negative 04/15/2021 20:44 EDT [facility] Adenovirus DNA Rslt (ADVRES) Negative Negative 04/15/2021 20:44 EDT [facility] Swab ENTIRE NASOPHARYNX / Unknown Swab / Unknown 2021 14:32 EDT 2021 14:35 EDT Shirley Birmingham MD MICROBIOLOGY - GENERAL ORDERABLE S Final Result Performing Organization Address City/[facility]/ZIP Co de Phone Number [facility] [address] [place] [address] * INFLUENZA A AND B,RSV PCR (2021 14:32 EDT) FLU A RNA Result (FLARES) Negative Negative 04/15/2021 20:44 EDT [facility] FLU B RNA Result (FLBRES) Negative Negative 04/15/2021 20:44 EDT [facility] RSV RNA Result (RSVRES) Negative Negative 04/15/2021 20:44 EDT [facility] Performing Lab Wallace [facility] 04/15/2021 20:44 EDT [facility] Swab ENTIRE NASOPHARYNX / Unknown Swab / Unknown 2021 14:32 EDT 2021 14:35 EDT us Shirley Birmingham MD MICROBIOLOGY - GENERAL ORDERABLE S Final Result Performing Organization Address [facility]/ZIP Co de Phone Number [facility] [address] [place] [id number] * COVID-19 TEST [facility] PCR (2021 14:32 EDT) Swab ENTIRE NASOPHARYNX / Unknown Swab / Unknown 2021 14:32 EDT 2021 14:35 EDT us Nel Borges MD MPH MICROBIOLOGY - GENERAL ORDERABLES Final Result Performing Organization Address [facility] Co de Phone Number [facility] [address] [place] [id number] * COVID-19 TESTING (2021 14:32 EDT) COVID-19 rt-PCR Result Negative Negative 2021 22:24 EDT [facility] Comment: This test has [...] history, and epidemiological information. Performed on the [employer] Fusion instrument Performing Lab Wallace [facility] 2021 22:24 EDT [facility] Swab ENTIRE NASOPHARYNX / Unknown Swab / Unknown 2021 14:32 EDT 2021 14:35 EDT us Nel Borges MD MPH MICROBIOLOGY - GENERAL ORDERABLES Final Result Performing Organization Address City/[facility]/ZIP Co de Phone Number [facility] [address] [place] [address] * TSH (2021 13:02 EDT) Pathologist [facility] TSH 1.11 0.47 - 4.68 uIU/mL 2021 19:19 EDT [facility] Blood VENOUS BLOOD / Unknown Venipuncture / Unknown 2021 13:02 EDT 2021 13:07 EDT Narrative [facility] - 2021 19:19 EDT The results of this assay can be falsely lowered due to the consumption of Biotin. us Jhon Rdz MD CHEMISTRY & BLOOD GAS ORDE RABLES Final Result Performing Organization Address [facility]/ZIP Co de Phone Number [facility] [address] [place] [address] * C REACTIVE PROTEIN (2021 13:02 EDT) [facility] C-Reactive Protein <7.0 <10.0 mg/L 2021 16:56 EDT [facility] Blood VENOUS BLOOD / Unknown Venipuncture / Unknown 2021 13:02 EDT 2021 13:07 EDT Toi Hewitt MD CHEMISTRY & BLOOD GAS ORDERABL ES Final Result Performing Organization Address City/[facility]/ZIP Co de Phone Number [facility] [address] [place] [address] * TROPONIN I (2021 13:02 EDT) Pathologist [facility] Troponin I (ng/mL) <0.034 <0.034 ng/mL 2021 13:44 EDT [facility] Blood VENOUS BLOOD / Unknown Venipuncture / Unknown 2021 13:02 EDT 2021 13:07 EDT Narrative [facility] - 2021 13:44 EDT The results of this assay can be falsely lowered due to the consumption of Biotin. us Nel Borges MD MPH CHEMISTRY & BLOOD GAS O RDERABLES Final Result [facility] [address] [place] [address] * (ABNORMAL) POCT URINE DIPSTICK, CLINITEK (2021 12:46 EDT) Color, UA Yellow Yellow 2021 12:48 [facility]ORATORY [facility] Clarity, UA Slightly Cloudy(A) Clear 2021 12:48 [facility]ORY [facility] Glucose, UA Negative Negative mg/dL 2021 12:48 [facility] Bilirubin, UA Negative Negative 2021 12:48 [facility] Ketones, UA 1+(A) Negative mg/dL 2021 12:48 [facility] Specific [place], Urine <=1.005 1.001 - 1.035 2021 12:48 [facility] Blood, UA Negative Negative 2021 12:48 [facility] pH, UA 6.0 <=8 2021 12:48 [facility] Protein, UA 1+(A) Negative mg/dL 2021 12:48 [facility] Urobilinogen, UA 0.2 0.2 - 1.0 EU/dL 2021 12:48 [facility] Nitrite, UA Negative Negative 2021 12:48 [facility] Leuk Esterase Negative Negative 2021 12:48 EDT [facility] HN LAB COMMENT (CLINITEK, UR) Test performed at Emergency Department 2021 12:48 EDT [facility] Urine URINE SPECIMEN COLLECTION, CLEAN CATCH / Unknown 2021 12:46 EDT 2021 12:48 EDT us Nel Borges MD MPH POINT OF CARE TEST ARNOLDO TREJO Final Result Performing Organization Address [facility]/ZIP Co de Phone Number [facility] [address] [place] [address] * POCT CSN BARCODE URINE DIPSTICK (2021 12:41 EDT) Urine URINE SPECIMEN COLLECTION, CLEAN CATCH / Unknown Urine Collect / Unknown 2021 12:41 EDT 2021 12:41 EDT us Nel Borges MD MPH LAB INFO SERVICE AND GLASS PPORT & PHONE RESULT Final Result Performing Organization Address [facility] de Phone Number [facility] [address] [place] [address] * (ABNORMAL) BACTERIAL CULTURE, URINE (2021 12:40 EDT) Organism ID [id number], 000 to 100,000 CFU/ml Enterococcus faecalis(A) VITEK SUSCEPTIBILITY 04/16/2021 7:30 EDT [facility] Comment:Ampicillin or Amoxac illin are the drugs of choice for treating Enterococcus infections (including VRE) limited to the lower tract. Organism ID Less than 10,000 CFU/ml Usual urogenital iona. VITEK SUSCEPTIBILITY 04/16/2021 7:30 EDT [facility] Urine URINE SPECIMEN COLLECTION, CLEAN CATCH / Unknown Urine Collect / Unknown 2021 12:40 EDT 2021 13:07 EDT Narrative Organism Antibiotic Method Susceptibility Enterococcus faecalis Nitrofurantoin VITEK SUSCEPTIBIL ITY <=16 ug/mL: Susceptible Enterococcus faecalis Vancomycin VITEK SUSCEPTIBILIT Y 1 ug/mL: Susceptible us Nel Borges MD MPH MICROBIOLOGY - GENERAL ORDERABLES Final Result Performing Organization Address [facility] Co de Phone Number [facility] [address] [place] [address] * (ABNORMAL) URINE SEDIMENT (MICRO) WITH REFLEX TO CULTURE (2021 12:40 EDT) Urine RBC Count, Auto 3 - 10(A) 0 - 2 Cells/HPF 2021 13:07 EDT [facility] Urine WBC Count, Auto 11 - 50(A) 0 - 3 Cells/HPF 2021 13:07 EDT [facility] Urine Squamous Count, Auto Few(A) None Seen Cells/HPF 2021 13:07 EDT [facility] Urine Hyaline Cast Count, Auto <=10 <=10 Casts/LPF 2021 13:07 EDT [facility] Urine Bacteria Count, Auto None Seen None Seen Bacteria/H PF 2021 13:07 EDT [facility] Urine URINE SPECIMEN COLLECTION, CLEAN CATCH / Unknown Urine Collect / Unknown 2021 12:40 EDT 2021 12:49 EDT Narrative [facility] - 2021 13:07 EDT A Urine Culture test has been reflexively ordered based on result criteria from the Urine Sediment Analysis. Urine Sediment Analysis results are unreliable on urines that are unrefrigerated for >2 hrs or refrigerated >8 hrs. us Nel Borges MD MPH URINALYSIS ORDERABLES F inal Result Performing Organization Address [facility]/ZIP Co de Phone Number [facility] [address] [place] [address] * EKG 12-LEAD (2021 12:35 EDT) 2021 12:3 5 EDT [facility] EKG - 04/16/2021 11:56 EDT ?[facility] Emergency ? Test Date: ?2021 Pat Name: ? ERIKA HUSAIN ? Department: ?? ED ? Room: ? WA08 Gender: ? Female ? 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 [id number] : ?1960 ? Requested By: JONY Pradhan Order Number: [id number] ? Reading MD: ?? HIMA SALAZAR MD ? Measurements Intervals ?[place] ? Rate: ? 87 ? P: ?67 MD: ? 151 ?QRS: ?65 QRSD: ? 112 [...] Note Hima Salazar MD - 04/16/2021 [facility] Emergency Test Date: 2021 Pat Name: ERIKA HUSAIN Department: ED Room: [facility] Gender: Female Sound Engineer Audio Control: [id number] : 1960 Requested By: JONY Pradhan Order Number: [id number] Reading MD: HIMA SALAZAR MD Measurements Intervals [place] Rate: 87 P: 67 MD: 151 QRS: 65 QRSD: 112 T: 23 [...] On 04-16-2021 11:56:19 EDT by HIMA CUNHA. us Nel Borges MD MPH CARDIAC ECG ORDERABLES Final Result [facility] EKG * EKG 12-LEAD (2021 12:24 EDT) 2021 12:2 4 EDT Narrative [facility] EKG - 04/16/2021 11:55 EDT ?[facility] Emergency ? Test Date: ?2021 Pat Name: ? ERIKA HUSAIN ? Department: ?? ED ? Room: ? WA08 Gender: ? Female ? 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 : ?1960 ? Requested By: JONY Pradhan Order Number: [id number] ? Kasi JARVIS: ?? HIMA SALAZAR MD ? Measurements Intervals ?[place] ? Rate: ? 86 ? P: ?57 MD: ? 154 ?QRS: ?59 QRSD: ? 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 Electronically Signed On 04-16-2021 11:55:36 EDT by HIMA CUNHA. us Nel Borges MD MPH CARDIAC ECG ORDERABLES Final Result [facility] EKG * CT ABDOMEN PELVIS W [...] No suspicious osseous lesion or acute fracture. Svp Of Digital: ??No additional findings. Procedure Note Radha Bowen [...] spine. Nosuspicious osseous lesion or acute fracture. Svp Of Digital: No additional findings. IMPRESSION 1. The sigmoid colon and rectum demonstrate mild mucosal hyperemia andmild wall thickening but without without evidence of surroundinginflammatory stranding. These findings may represent a mild proctocolitisin the appropriate clinical setting. 2. Hepatic steatosis. 3. Hepatic cyst. us Nel Borges MD MPH IMG CT ORDERABLES Final Result * HOLD SST (2021 11:18 EDT) Hold Hold 2021 12:31 EDT [facility] Blood VENOUS BLOOD / Unknown Venipuncture / Unknown 2021 11:18 EDT 2021 11:22 EDT us Nel Borges MD MPH LAB INFO SERVICE AND GLASS PPORT & PHONE RESULT Final Result [facility] [address] [place] [address] * HOLD BLUE TOP (2021 11:18 EDT) Hold Hold 2021 12:31 EDT [facility] Blood VENOUS BLOOD / Unknown Venipuncture / Unknown 2021 11:18 EDT 2021 11:22 EDT us Nel Borges MD MPH LAB INFO SERVICE AND GLASS PPORT & PHONE RESULT Final Result [facility] [address] [place] [address] * (ABNORMAL) HEMOGLOBIN A1C (2021 11:08 EDT) Hemoglobin A1c 5.8(H) <5.7 % 2021 19:08 EDT [facility] Comment: New methodology in [...] Est Avg Glucose 120 mg/dL 19:08 EDT [facility] Comment:The eAG represents t he A1c result expressed as average glucose in mg/dL. Blood VENOUS BLOOD / Unknown Venipuncture / Unknown 2021 11:08 EDT 2021 11:22 EDT us Toi Hewitt MD CHEMISTRY & BLOOD GAS ORDERABL ES Final Result [facility] [address] [place] [address] * TISSUE TRANSGLUTAMINASE AB (2021 11:08 EDT) Tissue Transglutaminase Antibody IGA <1.2 <4.0 U/mL 04/19/2021 13:31 EDT [facility] Comment: A negative result may be due to IgA deficiency and does not rule out celiac disease. ? Negative: ??<4.0 U/mL ? Weak Positive: ??4.0 - 10.0 U/mL ? Positive: ??>10.0 U/mL Results were obtained with the [employer] L[employer] R h-tTG IgA JESS assay on the [employer]. Blood VENOUS BLOOD / Unknown Venipuncture / Unknown 2021 11:08 EDT 2021 11:22 EDT us Toi Hewitt MD IMMUNOLOGY AND SEROLOGY ORDERA BLES Final Result Performing Organization Address [facility] Co de Phone Number [facility] [address] [place] [address] * LIPASE (2021 11:08 EDT) Lipase 238 <251 U/L 2021 11:49 EDT [facility] Blood VENOUS BLOOD / Unknown Venipuncture / Unknown 2021 11:08 EDT 2021 11:22 EDT us Nel Borges MD MPH CHEMISTRY & BLOOD GAS O RDERABLES Final Result Performing Organization Address [facility] Co de Phone Number [facility] [address] [place] [address] * (ABNORMAL) COMPREHENSIVE METABOLIC PANEL (CMP) (2021 11:08 EDT) Pathologist [facility] Sodium 145 136 - 145 mEq/L 2021 11:51 [facility] Potassium 2.6(LL) 3.5 - 5.0 mEq/L 2021 11:51 [facility] Chloride 100 96 - 110 mEq/L 2021 11:51 [facility] CO2 Total 26 22 - 32 mEq/L 2021 11:51 [facility] Glucose 174(H) 70 - 100 mg/dL 2021 11:51 [facility] BUN 16 10 - 26 mg/dL 2021 11:51 [facility] Creatinine 1.12(H) 0.52 - 1.04 mg/dL 2021 11:51 [facility] eGFR 54(L) >60 mL/min/1.7 3m2 2021 11:51 [facility] Comment:eGFR calculated en hanna CKD-EPI equation for non- Americans. Multiply eGFR by 1.16 for patients. Total Protein 7.5 6.3 - 8.2 g/dL 2021 11:51 [facility] Albumin 4.6 3.4 - 4.9 g/dL 2021 11:51 [facility] Alkaline Phosphatase 51 38 - 126 U/L 2021 11:51 [facility] AST 43 15 - 46 U/L 2021 11:51 [facility] ALT 29 <35 U/L 2021 11:51 [facility] Bilirubin, Total 1.7(H) <1.4 mg/dL 04/14/20 11:51 [facility] Calcium 9.4 8.5 - 10.5 mg/dL 2021 11:51 [facility] Calculated Calcium 8.9 8.5 - 10.5 mg/dL 2021 11:51 [facility] Blood VENOUS BLOOD / Unknown Venipuncture / Unknown 2021 11:08 EDT 2021 11:22 EDT us Nel Borges MD MPH CHEMISTRY & BLOOD GAS O RDERABLES Final Result [facility] [address] [place] [id number] * (ABNORMAL) COMPLETE BLOOD COUNT AND DIFFERENTIAL (2021 11:08 EDT) WBC 10.55 4.00 - 12.40 K/cmm 2021 11:37 [facility] RBC 4.34 3.86 - 5.04 M/cmm 2021 11:37 [facility] Hemoglobin 12.7 11.6 - 15.2 gm/dL 2021 11:37 [facility] HCT 35.5 34.9 - 44.4 % 2021 11:37 [facility] MCV 82 81 - 98 fl 2021 11:37 [facility] MCH 29.3 26.7 - 33.3 pg 2021 11:37 [facility] MCHC 35.8 32.1 - 35.9 gm/dL 2021 11:37 [facility] RDW-CV 14.4 <14.7 % 2021 11:37 [facility] RDW-SD 42.0 <50.4 fl 2021 11:37 [facility] PLT 453(H) 141 - 377 K/cmm 2021 11:37 [facility] MPV 9.2(L) 9.5 - 12.7 fl 2021 11:37 [facility] % Neutrophils 66.1 % 2021 11:37 [facility] % Lymphocytes 24.3 % 2021 11:37 [facility] % Monocytes 7.6 % 2021 11:37 [facility] % Eosinophils 0.9 % 2021 11:37 [facility] % Basophils 0.7 % 2021 11:37 [facility] % Immature Grans 0.4 % 04/14/20 11:37 [facility] Absolute Neutrophils 6.98 2.20 - 8.85 K/cmm 2021 11:37 [facility] Absolute Lymphocytes 2.56 1.09 - 3.30 K/cmm 2021 11:37 [facility] Absolute Monocytes 0.80 0.10 - 0.80 K/cmm 2021 11:37 [facility] Absolute Eosinophils 0.10 0.03 - 0.61 K/cmm 2021 11:37 EDT [facility] ABS Basophils 0.07 0.01 - 0.11 K/cm 2021 11:37 EDT [facility] Absolute Immature Grans 0.04 0.00 - 0.06 K/[facility] 2021 11:37 EDT [facility] Type of Differential: Auto 2021 11:37 EDT [facility] Blood VENOUS BLOOD / Unknown Venipuncture / Unknown 2021 11:08 EDT 2021 11:22 EDT us Nel Borges MD MPH PACKAGES & DNA PROBE OR DERABLES Final Result Performing Organization Address City/[facility] Co de Phone Number [facility] [address] [place] [address] * (ABNORMAL) POCT GLUCOSE, INTERFACED (2021 10:35 EDT) [facility] Glucose, POC 179(H) 70 - 100 mg/dL 2021 10:36 EDT [facility] HN LAB POC COMMENT (GLUCOSE) Test Performed by Nursing Services 2021 10:36 EDT [facility] Blood CAPILLARY BLOOD / Unknown 2021 10:35 EDT 2021 10:36 EDT us Nel Borges MD MPH POINT OF CARE TEST ORDE RABAARON Final Result [facility] [address] [place] [address] documented in this encounter Visit Diagnoses Diagnosis [...] on Mon04/15/21 at 1345, Last dose on Mon04/22/21 at 0745, Routine Given 04/15/2021 14:24 EDT [...] Once in imaging, 1 dose, Starting on Shirley 04/15/21 at 1337, Until Shirley 04/15/21 at 1354, Routine, Imaging Protocol Orders Given [...] 8 HOURS, 21 doses, First dose on Shirley 04/15/21 at 1300, Last dose on Mon04/22/21 at [...] X1, 1 dose, On Shirley 04/15/21 at 0145, Routine Given 04/15/2021 1:41 EDT [...] dose (after last modification) on Mon04/15/21 at 0615, Last dose on Mon04/15/21 at 1200, Routine Given 04/15/2021 7:26 EDT 40 mEq potassium chloride (KLOR-CON) packet 40 mEq 40 mEq, oral, EVERY 2 HOURS, 3 doses, First dose (after last reorder) on Mon04/15/21 at 1015, Last dose on Mon04/15/21 at 1400, Routine Given 04/15/2021 1 6:42 [...] Discontinued, Routine 0001 (Given - Provider: Nan oHyos RN)0530 (Given - Provider: Nan Hoyos RN)1216 [...] No, Routine 0002 (Given - Provider: Nan Hoyos, RN)0531 (Given - Provider: Nan Hyoos, RN)1217 (Given - Provider: Juanita Calles, RN) hydrocortisone 2.5 % cream topical, 2 TIMES DAILY, First dose on Mon04/14/21 at 2100, Until Discontinued 0836 (Given - Provider: Juanita Calles, RON)2044 (Given - Provider: Janie Rueda, RON) 0840 (Given - Provider: Lia Petty, RN)2220 (Given - Provider: Janie Rueda RN - [...] Discontinued, Routine 0832 (Given - Provider: Juanita Calles, RON) 0837 (Given - Provider: Lia Petty, RON) 0811 (Given - Provider: Gregory Orlando RN) LORazepam (ATIVAN) injection 1 mg (COMPLETED) 1 mg, intravenous, NOW X1, 1 dose, On Mon04/16/21 at 1015 1012 (Given - Provider: Juanita Calles, RON) lovastatin (MEVACOR) tablet 20 mg 20 mg, oral, DAILY, First dose on Mon04/15/21 at 0900, Until Discontinued, Routine 0832 (Given - Provider: Juanita Calles RN) 0837 (Given - Provider: Lia Petty, RON) 08 (Given - Provider: Gregory Orlando RN) magnesium sulfate 2 g in water 50 [...] Rueda RN) 08 (Given - Provider: Lia Petty RN)2126 (Given - Provider: Janie Rueda RN) 08 (Given - Provider: Gregory Orlando RN) potassium chloride SA (K-DUR) tablet 40 mEq (CANCELED)(Linked Group 1) 40 mEq, oral, EVERY 12 HOURS, 2 doses, First dose (after last modification) on Mon04/16/21 at 2100, Last dose on Mon04/17/21 at 0900, Routine 2016 (Given - Provider: Janie Rueda RN) 0838 (See Alternative - Provider: Lia Petty RN) potassium, sodium phosphates (PHOS-NAK) 280-160-250 mg packet 8 mmol (COMPLETED) 8 mmol (1 Packet), oral, 2 TIMES DAILY, 2 doses, First dose on 04/17/21 at 0900, Last dose on Mon04/17/21 at 2100, Routine 0837 (Given - Provider: Lia Petty RN)2123 (Given - Provider: Janie Rueda RN) predniSONE [...] Calles RN)1454 (Given - Provider: Juanita Calles RN)2016 (Given - Provider: Janie Rueda RN) 0837 [...] over 15 Minutes, DAILY, First dose on Mon04/15/21 at 1045, Until Discontinued, Routine 0832 (Given [...] No, Routine 1454 (Given - Provider: Juanita Calles RN)2017 (Given - Provider: Janie Rueda RN) 0837 (Given - Provider: Lia Petty RN)1206 (Given - Provider: Lia Petty RN)1815 (Given - Provider: Lia Petty RN)2125 (Given - Provider: Janie Rueda, RON) 0810 (Given - Provider: Gregory Orlando RN)1200 [...] RN) 0837 (Given - Provider: Lia Petty RN)1815 (Given - Provider: Lia Petty RN) ondansetron (PF) (ZOFRAN) injection 4 mg 4 mg, intravenous, EVERY 4 HOURS PRN, Starting on Mon04/14/21 at 1829, Until 04/18/21 at 1729, Nausea, Routine 1322 (Given - Provider: Lia Petty RN) prochlorperazine edisylate (COMPAZINE) injection 10 mg 10 mg, intravenous, EVERY 6 HOURS PRN, Starting on Mon04/16/21 at 0954, Until 04/18/21 at 1729, Nausea, Routine 1013 (Given - Provider: Juanita Calles RN)2300 (Given - Provider: Janie Rueda RN) 0837 (Given - Provider: Lia Petty RN)1814 (Given - Provider: Lia Petty RN) ramelteon (ROZEREM) tablet 8 mg 8 mg, oral, AT BEDTIME PRN, Starting on Mon04/14/21 at 1612, Until 04/18/21 at 1729, Sleep, Routine 2016 (Given - Provider: Janie Rueda, RON) 2124 (Given - Provider: Janie Rueda RN) Linked [...] documented as of this encounter Care Teams Engraving Operator Relationship Specialty Start Date End Date German Garzon PA-C [address] [place] [address] PCP - General 09/28/18 05/29/22 documented as of this encounter
--- OUTSIDE RECORDS SUMMARY | 2024-09-17 15:17 | XMS_ITS | Encounter Summary ---
Author Organization [facility] Address [address] [place] [address] Care Team Providers Care Registered Dietitian Name Role Phone Remedios Mehta MD Primary Care Provider [phone] [phone] Reason for Visit * Reason Onset Date Comments Paperwork request 05/01/2014 Encounter Details Date Type Department Care Team (Late st Contact Info) Description 05/01/[address] [phone] Emily Gibson LPN Paperwork request Social History [...] on filedocumented in this encounter Care Teams Registered Dietitian Relationship Specialty Start Date End Date Remedios Mehta MD [address] [place] [phone] PCP - General 02/19/09 01/04/15 documented as of this encounter
--- OUTSIDE RECORDS SUMMARY | 2024-09-17 15:17 | XMS_ITS | Encounter Summary ---
Author Organization [facility] Address [address] [place] [address] Care Team Providers Care Older Adult Social Work Specialist Name Role Phone Remedios Mehta MD Primary Care Provider [phone] [phone] Encounter Details Date Type Department Care Team (Late st Contact Info) Description 11/06/[address] [address] Emily Gibson LPN Social History Tobacco Use [...] Provider GI PROCEDURE ORDERABLES F inal Result documented in this encounter Visit Diagnoses Not on filedocumented in this encounter Care Teams Older Adult Social Work Specialist Relationship Specialty Start Date End Date Remedios Mehta MD [address] [place] [phone] PCP - General 02/19/09 01/04/15 documented as of this encounter
--- OUTSIDE RECORDS SUMMARY | 2024-09-17 15:17 | XMS_ITS | Encounter Summary ---
Author Organization [facility] Address [address] [place] [address] Care Team Providers Care Spice Blender Name Role Phone Remedios Mehta MD Primary Care Provider [phone] [phone] Reason for Visit * Reason Onset Date Comments Medications Refill 06/05/2014 Encounter Details Date Type Department Care Team (Late st Contact Info) Description 06/05/[address] [address] Remedios Mehta MD [address] [place] [phone] Medications Refill Social History Tobacco Use [...] Author Yes 07/17/2013 23:00 EDT Phill Live, RON documented in this encounter Miscellaneous Notes * Telephone Encounter - Remedios Strong MD - 06/05/2014 1706 EDT Can't send narcotics out of state. * Telephone Encounter - Brook Weathers - 06/05/2014 1224 EDT Medication(s) Requested: Hydrocodone-acet Pharmacy: [place], [place] Last Refill Date: 04/22/14 #116 No refills Last Visit Date: 03/17/14 Next Visit Date: Visit date not found Is patient out of medication? Yes - [place] to [place] and does not have a new doctor yet. Sheis waiting for her Medicare & medicaid transferred to [place]. Brook Weathers 06/05/2014 12:24 documented in this [...] unspecified documented in this encounter Care Teams Spice Blender Relationship Specialty Start Date End Date Remedios Mehta MD [address] [place] [phone] PCP - General 02/19/09 01/04/15 documented as of this encounter
--- OUTSIDE RECORDS SUMMARY | 2024-09-17 15:17 | XMS_ITS | Encounter Summary ---
Author Organization [facility] Address [address] [place] [address] Care Team Providers Care Linux System Engineer Name Role Phone Remedios Mehta MD Primary Care Provider [phone] [phone] Reason for Visit * Reason Comments Other Encounter Details Date Type Department Care Team (Late st Contact Info) Description 05/10/2014 [facility] [address] [address] Remedios Mehta MD [address] [place] [phone] Other Social History Tobacco Use Types [...] Date traZODone (DESYREL) 100 mg tablet Take 0.5-1 [...] documented as of this encounter Care Teams Linux System Engineer Relationship Specialty Start Date End Date Remedios Mehta MD [address] [place] [phone] PCP - General 02/19/09 01/04/15 documented as of this encounter
--- OUTSIDE RECORDS SUMMARY | 2024-09-17 15:17 | XMS_ITS | Encounter Summary ---
Author Organization [facility] Address [address] [place] [address] Care Team Providers Care Transmission Mechanic Name Role Phone Remedios Mehta MD Primary Care Provider [phone] [phone] Reason for Visit * Reason Onset Date Comments Medications Refill 04/18/2014 Encounter Details Date Type Department Care Team (Late st Contact Info) Description 04/18/[address] [address] Remedios Mehta MD [address] [place] [phone] Medications Refill Social History Tobacco Use [...] Refills Last Filled Start Date End Date HYDROcodone-acetam inophen (NORCO) 10-325 mg tabletIndications: Pain of right leg,Cervical spondylosis without myelopathy,Arthrop athy,Fibromyalgia Take 1 Tab by mouth every 6 [...] 04/21/2014 1022 EDT Patient is moving to [place] this week either on or Monday. She is having a hard time finding a new provider there that is accepting new patients. She has just gotten a list of accepting providers and will be calling around. * Telephone Encounter - Tania Nguyen - 04/18/2014 1509 EDT Medication(s) Requested: [facility] Last Refill Date: 02.17.14 Last Visit Date: [...] Component Hyperlipidemia 143( 4 11:54 EDT) No GibsonEmily LPN documented as of this encounter Procedures [...] use in employment-related drug testing. Performed by: [facility], [address], [place] [address], Director Imaging: Sushila Pires, Ph.D. Urine specimen (specimen) URINE / Unknown 04/22/2014 12:47 EDT 04/22/2014 18:13 EDT us Remedios Mehta MD URINALYSIS ORDERABLES Fin al Result [facility] [address] [place] [address] * DRUG SCREEN 6 (04/22/2014 12:47 EDT) [...] ORDERABLES Fin al Result Performing Organization Address City/State/[facility] Co de Phone Number [facility] [address] [place] [address] documented in this encounter Visit Diagnoses Diagnosis [...] documented as of this encounter Care Teams Transmission Mechanic Relationship Specialty Start Date End Date Remedios Mehta MD [address] [place] [phone] PCP - General 02/19/09 01/04/15 documented as of this encounter
--- OUTSIDE RECORDS SUMMARY | 2024-09-17 15:17 | XMS_ITS | Encounter Summary ---
Author Organization [facility] Address [address] [place] [address] Care Team Providers Care Bond Broker Name Role Phone Remedios Mehta MD Primary Care Provider [phone] [phone] Reason for Visit * Reason Onset Date Comments Advice Only 04/17/2014 Encounter Details Date Type Department Care Team (Late st Contact Info) Description 04/17/2014 Telephone [facility] Interventional Pain [address] [place] [address] Abundio Tubbs, DO [address] [address] [place], [place] [address] Advice Only Social History Tobacco Use Types [...] 04/17/2014 1212 EDT Pt is moving to [place] and she is looking for a doctor in [facility]. Any ideas? documented in this encounter Plan [...] on filedocumented in this encounter Care Teams Bond Broker Relationship Specialty Start Date End Date Remedios Mehta MD [address] [place] [phone] PCP - General 02/19/09 01/04/15 documented as of this encounter
--- OUTSIDE RECORDS SUMMARY | 2024-09-17 15:17 | XMS_ITS | Encounter Summary ---
Author Organization [facility] Address [address] [place] [address] Care Team Providers Care Application Architect Name Role Phone Remedios Mehta MD Primary Care Provider [phone] [phone] Reason for Visit * Reason Comments Back Pain lower back pain radi ating down left buttock and leg Neck Pain Encounter Details Date Type Department Care Team (Latest Contact Info) Description 04/22/2014 15:15 EDT Office Visit [facility] Interventional Pain [address] [place], [place] [phone] Abundio Tubbs, DO [address] [place] [address] [address] [place] [address] Lumbar facet arthropathy (Primary Dx); Chronic low [...] 04/22/2014 1544 EDT documented in this encounter Mental Status * Because of a physical, mental, or emotional condition, do you have serious difficulty concentrating, remembering, or making decisions? (5 years old or older) Answer Entry Date Author Yes 07/17/2013 23:00 EDT Phill Live RN documented in this encounter Discharge Diagnoses Diagnosis 721.3 LUMBOSACRAL SPONDYLOSIS[ICD-9-CM] 724.2 LUMBAGO[ICD-9-CM] 716.98 ARTHROPATHY NOS-OTHER SITE[ICD-9-CM] documented in this encounter Patient Instructions * Patient Instructions* Delia Lama RN - 04/22/2014 16:09 EDT [facility] [place] [address] Patient Instructions Today please stay busy/active doing [...] Progress Notes * Abundio Tubbs - 04/22/2014 5255 EDT PT NAME: Cherelle Husain : 1960 DOS: 04/22/2014 RECREATION THERAPY AIDE: Abundio Tubbs DO EGG BUYER: N/A PROCEDURE: Facet injections; left L3-L4 DIAGNOSIS: [...] DO 04/22/2014 * Hawa Angeles - 04/22/2014 9528 EDT [facility] Rooming Note Does patient have a Manager Of Business Operations? yes Is patient NPO? (Solids since midnight [...] mg documented in this encounter Care Teams Application Architect Relationship Specialty Start Date End Date Remedios Mehta MD [address] [place] [phone] PCP - General 02/19/09 01/04/15 documented as of this encounter
--- OUTSIDE RECORDS SUMMARY | 2024-09-17 15:17 | XMS_ITS | Encounter Summary ---
Author Organization [facility] Address [address] [place] [address] Care Team Providers Care Blanket Winder Helper Name Role Phone Remedios Mehta MD Primary Care Provider +1 [phone] Reason for Referral * Radiology Services (Routine) - Closed Specialty Diagnoses / Procedures Referred By Contac t Referred To Contact Diagnoses Knee pain Procedures KNEE 1 OR 2 VIEWS Yonathan Moreland MD Referral ID Status Reason Start Date Expiration Date Visits Re quested Visits Authorized [id number] Closed 04/18/2014 1 1 * Radiology Services (Routine) - Closed Specialty Diagnoses / Procedures Referred By Contac t Referred To Contact Diagnoses Knee pain Procedures KNEE 1 OR 2 VIEWS Yonathan Moreland MD Referral ID Status Reason Start Date Expiration Date Visits Re quested Visits Authorized [id number] Closed 04/18/2014 1 1 Encounter Details Date Type Department Care Team (Late st Contact Info) Description 04/17/2014 Orders Only [facility] Total Joint Program [place] [address] [place] [address] Yonathan Moreland MD Knee pain [...] Date Author Yes 07/17/2013 23:00 EDT Phill Liev RN documented in this encounter Plan of [...] and Symptoms/Comments: ?? 719.46-Pain in joint, lower bqm-QYP-0-CM; left knee pain Comparison: None Findings: Weight-bearing [...] Signs and Symptoms/Comments: 719.46-Pain in joint, lower yyd-WPT-3-CM; left knee pain Comparison: None Findings: Weight-bearing [...] knee right knee replacement Yonathan Moreland MD [facility] DIAGNOSTIC IMAGING ORDERABLES Final Result * KNEE 1 OR 2 VIEWS (04/21/2014 13:50 EDT) Anatomical Region Laterality Modality Other 04/21/2014 13:5 0 EDT 04/21/2014 14:02 EDT Narrative 04/21/2014 14:02 EDT KNEE 1 OR 2 VIEWS, KNEE 1 OR 2 VIEWS ??04/21/2014 1:50 PM Signs and Symptoms/Comments: ?? 719.46-Pain in joint, lower hfu-QFX-4-CM; left knee pain Comparison: None Findings: Weight-bearing [...] Signs and Symptoms/Comments: 719.46-Pain in joint, lower sdf-AEU-8-CM; left knee pain Comparison: None Findings: Weight-bearing [...] Yonathan Moreland MD IMG DIAGNOSTIC IMAGING ORDERABLES Final Result documented in this encounter Visit Diagnoses Diagnosis Knee pain- Primary Pain in joint, lower leg documented in this encounter Care Teams Blanket Winder Helper Relationship Specialty Start Date End Date Remedios Mehta MD [address] [place] [phone] PCP - General 02/19/09 01/04/15 documented as of this encounter
--- OUTSIDE RECORDS SUMMARY | 2024-09-17 15:18 | XMS_ITS | Encounter Summary ---
Author Organization [facility] Address [address] [place] [address] Care Team Providers Care Costume Designer Name Role Phone Remedios Mehta MD Primary Care Provider +1 -[phone] Reason for Visit * Reason Comments Chronic Pain Hyperlipidemia Asthma Other moving Encounter Details Date Type Department Care Team (Late st Contact Info) Description 03/17/2014 11:15 EDT Office Visit [address] [address] Remedios Mehta MD [address] [place] [phone] Cervical spondylosis without myelopathy (Primary Dx); [...] 03/06/2014 1019 EDT documented in this encounter Mental Status * Because of a physical, mental, or emotional condition, do you have serious difficulty concentrating, remembering, or making decisions? (5 years old or older) Answer Entry Date Author Yes 07/17/2013 23:00 EDT Phill Live RN documented in this encounter Discharge Diagnoses Diagnosis 721.0 CERVICAL SPONDYLOSIS[ICD-9-CM] 715.96 OSTEOARTHROS NOS-L/LEG[ICD-9-CM] 724.2 LUMBAGO[ICD-9-CM] 723.1 CERVICALGIA[ICD-9-CM] 729.1 MYALGIA AND MYOSITIS NOS[ICD-9-CM] 182.0 MALIG HEIDY CORPUS UTERI[ICD-9-CM] 272.4 HYPERLIPIDEMIA NEC/NOS[ICD-9-CM] 401.9 HYPERTENSION NOS[ICD-9-CM] 611.1 HYPERTROPHY OF BREAST[ICD-9-CM] documented in this encounter Patient Instructions * Patient Instructions* Remedios Strong MD - 03/17/2014 11:46 EDT Images from the original note were not included. [facility] [address] [place] [address] Dr. Shayy Rios MD [facility] Practice Physician [phone] Dr. Manasa Ma, [facility] Patient Instructions Breast Reduction: Before Your Surgery [...] living will and a durable power of associate attorney for health care. Bring a copy [...] not apply lotions, perfumes, deodorants, or nail djiboutian. ?? Do not shave the surgical site [...] Where can you learn more? Go to www.[employer].net/fahc Enter E381 in the search box to learn more about Breast Reduction: Before Your Surgery. ?? 2523-2751 [employer]. Care instructions adapted under license by [facility], [facility]. This care instruction is for use with your licensed healthcare professional. If you have questions about a medical condition or this instruction, always ask your healthcare professional. [employer] disclaims any warranty or liability for your use of this information. Content Version: 10.0.519669; Last Revised: May 20, 2013 documented in this encounter Ordered Prescriptions Prescription Sig Dispense Quantity Refills Last Filled Start Date End Date acetaminophen (TYLENOL) 325 [...] for general follow up. Is moving to [place] to live with Ernst, her boyfriend and childhood sweetheart. He has been living with her in [place] since they reconnected last year. Nelas sold her condo and decided to move there because it would be better for her arthritis and asthma. Her son is here in [place] but her daughter is in [place]. No new issues. Allergies acted up last month but she feels stable on current regimen of nasal spray and inhalers. Wants to work on weight loss when she gets down to [place]. Is also hoping after she establishes a [...] (FLONASE) 50 mcg/actuation nasal spray Instill 1 [place] into both nostrils daily. 1 Bottle 5 [...] surgeon after establishing a medical home in [place] - reviewed providersin her area with her [...] SST, 1 Lav I was supervised by Remedios Strong who was present and immediately available [...] % Neutrophils 63.7 45.5 - 79.7 % [facility] % Lymphocytes 27.2 15.0 - 46.8 % [facility] % Monocytes 6.0 1.8 - 12.0 [...] [facility] Type of Diff: Automated [facility] 03/17/2014 11:5 4 EDT 03/17/2014 19:13 EDT us Remedios Mehta MD HEMATOLOGY & PF4 ORDERABL ES Final Result [facility] [address] [place] [address] * HEMAGRAM (03/17/2014 11:54 EDT) WBC 6.48 4.0 - 12.4 K/cmm [facility] RBC 4.31 3.86 - 5.04 M/cmm [facility] Hemoglobin 13.5 11.6 - 15.2 gm/dl [facility] HCT 38.9 34.9 - 44.4 % [facility] MCV 90 81 - 98 fl [facility] MCH 31.4 26.7 - 33.3 pg [facility] MCHC 34.7 32.1 - 35.9 gm/dl [facility] PLT 276 141 - 320 K/cmm [facility] RDW-CV 12.6 11.7 - 14.6 % [facility] 03/17/2014 11:5 4 EDT 03/17/2014 19:13 EDT us Remedios Mehta MD HEMATOLOGY & PF4 ORDERABL ES Final Result Performing Organization Address [facility] de Phone Number [facility] [address] [place] [address] * LIPID PROFILE (INCLUDES CHOLESTEROL, TRIGLYCERIDES, HDL, LDL) (03/17/2014 11:54 EDT) Cholesterol 228 mg/dl [facility] Comment: Desirable:<200 Borderline High:200-239 High:>rs=533 Triglycerides 215 mg/dl [facility] Comment: Normal:<150 Borderline High:150-199 High:200-499 Very High:>ar=234 HDL 42 mg/dl [facility] Comment: Low:<40 Normal:40-60 Desirable: >60 LDL, Calculated 143 mg/dl [facility] Comment: Optimal:<100 Near Optimal:100-129 Borderline High:130-159 High:160-189 Very High:>yi=993 Chol/HDL Ratio 5.4 [facility] Fasting? Unknown [facility] Non HDL Cholesterol 186 mg/dl [facility] Comment: Desirable:<130 Borderline:130-159 High: 160-189 Very High: >mr=911 Blood specimen (specimen) 03/17/2014 11:54 EDT 03/17/2014 19:13 EDT us Remedios Mehta MD CHEMISTRY & BLOOD GAS ORD ERABLES Final Result Performing Organization Address [facility] de Phone Number [facility] [address] [place] [address] * (ABNORMAL) COMPREHENSIVE METABOLIC PANEL (CMP) (03/17/2014 11:54 EDT) Potassium 3.8 3.5 - 5.0 mEq/L [facility] Sodium 141 136 - 145 mEq/L [facility] Chloride 101 96 - 110 mEq/L [facility] CO2 29 24 - 32 mEq/L [facility] Total Alkaline Phosphatase 94 38 - 126 U/L [facility] Bilirubin, Total <0.5 <1.4 mg/dl [place] [facility] AST 14(L) 15 - 46 [...] (specimen) 03/17/2014 11:54 EDT 03/17/2014 19:13 EDT us Remedios Mehta MD CHEMISTRY & BLOOD GAS ORD ERABLES Final Result Performing Organization Address [facility] Co de Phone Number [facility] [address] [place] [address] * TSH (03/17/2014 11:54 EDT) TSH 0.69 0.35 - 5.00 uIU/ml [facility] Blood specimen (specimen) 03/17/2014 11:54 EDT 03/17/2014 19:13 EDT us Remedios Mehta MD CHEMISTRY & BLOOD GAS ORD ERABLES Final Result Performing Organization Address [facility] Co de Phone Number [facility] [address] [place] [address] documented in this encounter Visit Diagnoses Diagnosis [...] documented as of this encounter Care Teams Costume Designer Relationship Specialty Start Date End Date Remedios Mehta MD [address] [place] [phone] PCP - General 02/19/09 01/04/15 documented as of this encounter
--- OUTSIDE RECORDS SUMMARY | 2024-09-17 15:18 | XMS_ITS | Encounter Summary ---
Author Organization [facility] Address [address] [place] [address] Care Team Providers Care Team Foreman Name Role Phone Remedios Mehta MD Primary Care Provider + -[phone] Reason for Visit * Reason Comments Community Health Team Encounter Details Date Type Department Care Team (Late st Contact Info) Description 12/25/2013 Community Health Team [facility] [address] [facility], [address] [place], [place] [phone] Yaneth Alberts, RD [address] [place] [address] Social History Tobacco Use Types [...] Answer Entry Date Author Yes 07/17/2013 23:00 Phill Calderón RN documented in this encounter Progress Notes * Shilpi Forte - 12/25/2013 1343 EST ..Received referral to Community Health Team. Patient is scheduled to meet with Yaneth Alberts RD on January 27 at 11:00 at [facility]. documented in this encounter Plan of Treatment Not on file documented as of this encounter Visit Diagnoses Not on filedocumented in this encounter Care Teams Team Foreman Relationship Specialty Start Date End Date Remedios Mehta MD [address] [place], [place] [phone] PCP - General 02/19/09 01/04/15 documented as of this encounter
--- OUTSIDE RECORDS SUMMARY | 2024-09-17 15:18 | XMS_ITS | Encounter Summary ---
Author Organization [facility] Address [address] [place] [address] Care Team Providers Care Coke Oven Patcher Name Role Phone Remedois Mehta MD Primary Care Provider +1 -[phone] Reason for Visit * Reason Onset Date Comments Medications Refill 03/06/2014 Encounter Details Date Type Department Care Team (Late st Contact Info) Description 03/06/2014 Telephone [facility] Rheumatology & Immunology - [facility] [address] [place] [address] Tiffanie Herrmann, RON Medications Refill Social History [...] Miscellaneous Notes * Telephone Encounter - Tiffanie Herrmann, RON - 03/06/2014 1110 EDT Prescription for Lyrica, reflecting dose change, called in to pt's pharmacy. documented in this encounter Plan of Treatment Not on file documented as of this encounter Visit Diagnoses Not on filedocumented in this encounter Care Teams Coke Oven Patcher Relationship Specialty Start Date End Date Remedios Mehta MD [address] [place] [phone] PCP - General 02/19/09 01/04/15 documented as of this encounter
--- OUTSIDE RECORDS SUMMARY | 2024-09-17 15:18 | XMS_ITS | Encounter Summary ---
Author Organization [facility] Address [address] [place] [address] Care Team Providers Care Chief Gauger Name Role Phone Remedios Mehta MD Primary Care Provider +1 -[phone] Encounter Details Date Type Department Care Team (Latest Contact Info) Description 02/04/2014 7:36 EDT - 02/04/2014 23:59 EDT Hospital Encounter [facility] [address] [place] [address] Abundio Tubbs, DO [address] [place] [address] [address] [place] [address] Discharge Disposition: Auto Discharge Social History Tobacco [...] documented in this encounter Discharge Diagnoses Diagnosis 724.2 LUMBAGO[ICD-9-CM] documented in this encounter Medications at Time of Discharge albuterol (PROVENTIL HFA, VENTOLIN HFA) 90 mcg/actuation [...] bowel syndrome),GERD (gastroesophageal reflux disease) Instill 1 [place] into both nostrils daily. 1 Bottle 5 [...] every 6 hours as needed for Pain. 3 03/17/20 14 CYMBALTA 60 mg capsule TAKE ONE CAPSULE [...] as needed for Pain. 116 Tab 1 4 02/18/20 14 ketoconazole (NIZORAL) 2 % creamIndications:Ra sh Apply topically daily. Apply to affect area(s) as directed. 1 Tube 1 0 04/18/20 21 meloxicam (MOBIC) 7.5 mg tablet Take 1 Tab by mouth daily. 30 Tab 5 4 03/06/20 14 metoprolol (LOPRESSOR) 25 mg tabletIndications:H ypertension Take 1 Tab by mouth 2 times daily. 180 Tab 4 3 09/24/20 18 nabumetone (RELAFEN) 500 mg tablet Take 2 Tabs by mouth daily 2 tabs bid with food.. 60 Tab 2 4 04/18/20 14 omeprazole (PRILOSEC) 20 mg capsuleIndications: GERD (gastroesophageal [...] daily. 1 Bottle 3 4 10/17/20 14 pregabalin (LYRICA) 50 mg capsule Take 1 Cap by mouth 2 times daily. 60 Cap 5 4 03/06/20 14 traZODone (DESYREL) 100 mg tablet Take [...] Signs and Symptoms/Comments: ?? 721.3-Lumbosacral spondylosis without udqvbutdrj-ITR-0-CM 724.6-Jailkoa-UWB-9-CM; low back pain, localize origin. Technique: Lbo-vil-lbc-half hours after the IV injection of 18.8mCi [...] PM Signs and Symptoms/Comments: 721.3-Lumbosacral spondylosis without wahdrjaibo-TTD-2-CM 724.7-Enqqlqs-OHX-9-CM; low back pain, localize origin. Technique: Rat-jat-pcy-half hours after the IV injection of 18.8mCi [...] to degenerative spondylosis. Abundio CHILDERS NM ORDERABLES Edited * NM INJECTION NO CHARGE (02/05/2014 8:55 EDT) Anatomical Region Laterality Modality Other 02/05/2014 8:55 EDT Narrative 02/05/2014 8:55 EDT Non Reportable Exam Procedure Note 02/05/2014 Non Reportable Exam us Abundio Tubbs DO IMG NM ORDERABLES Final Result documented in this encounter Visit Diagnoses Not on filedocumented in this encounter Care Teams Chief Gauger Relationship Specialty Start Date End Date Remedios Mehta MD [address] [place] [phone] PCP - General 02/19/09 01/04/15 documented as of this encounter
--- OUTSIDE RECORDS SUMMARY | 2024-09-17 15:18 | XMS_ITS | Encounter Summary ---
Author Organization [facility] Address [address] [place] [address] Care Team Providers Care Marine Structural Welder Name Role Phone Remedios Mehta MD Primary Care Provider +1 -[phone] Reason for Visit * Reason Comments Other Encounter Details Date Type Department Care Team (Late st Contact Info) Description 01/16/2014 [facility] Medicine [address] [address] Remedios Mehta MD [address] [place] [phone] Other Social History Tobacco Use Types [...] on filedocumented in this encounter Care Teams Marine Structural Welder Relationship Specialty Start Date End Date Remedios Mehta MD [address] [place] [phone] PCP - General 02/19/09 01/04/15 documented as of this encounter
--- OUTSIDE RECORDS SUMMARY | 2024-09-17 15:18 | XMS_ITS | Encounter Summary ---
Author Organization [facility] Address [address] [place] [address] Care Team Providers Care Lacrosse Player Name Role Phone Remedios Mehta MD Primary Care Provider +1 -[phone] Reason for Visit * Reason Onset Date Comments Medications Refill 10/08/2013 Encounter Details Date Type Department Care Team (Late st Contact Info) Description 10/08/2013 Refill [facility] Rheumatology & [facility]ology - [facility] [address] [place] [address] Yovana Callejas MD [address] [place] [phone] Medications Refill Social History Tobacco Use Types [...] unspecified documented in this encounter Care Teams Lacrosse Player Relationship Specialty Start Date End Date Remedios Mehta MD [address] [place] [phone] PCP - General 02/19/09 01/04/15 documented as of this encounter
--- OUTSIDE RECORDS SUMMARY | 2024-09-17 15:18 | XMS_ITS | Encounter Summary ---
Author Organization [facility] Address [address] [place] [address] Care Team Providers Care Apparel Rental Clerk Name Role Phone Remedios Mehta MD Primary Care Provider +1 -[phone] Reason for Visit * Reason Onset Date Comments Paperwork request 12/19/2013 Encounter Details Date Type Department Care Team (Late st Contact Info) Description 12/19/[address] [address] Remedios Mehta MD [address] [place] [phone] Paperwork request Social History Tobacco Use [...] on filedocumented in this encounter Care Teams Apparel Rental Clerk Relationship Specialty Start Date End Date Remedios Mehta MD [address] [place] [phone] PCP - General 02/19/09 01/04/15 documented as of this encounter
--- OUTSIDE RECORDS SUMMARY | 2024-09-17 15:18 | XMS_ITS | Encounter Summary ---
Author Organization [facility] Address [address] [place] [address] Care Team Providers Care Executive Administrator Name Role Phone Remedios Mehta MD Primary Care Provider +1 -[phone] Reason for Visit * Reason Onset Date Comments Paperwork request 12/02/2013 Two separate f orms Encounter Details Date Type Department Care Team (Late st Contact Info) Description 12/02/[address] [address] Remedios Mehta MD [address] [place] [phone] Paperwork request (Two separate forms) Social [...] filedocumented in this encounter Care Teams Executive Administrator Relationship Specialty Start Date End Date Remedios Mehta MD [address] [place] [phone] PCP - General 02/19/09 01/04/15 documented as of this encounter
--- OUTSIDE RECORDS SUMMARY | 2024-09-17 15:18 | XMS_ITS | Encounter Summary ---
Author Organization [facility] Address [address] [place] [address] Care Team Providers Care Fur Dry Cleaner Hand Name Role Phone Remedios Mehta MD Primary Care Provider +1 -[phone] Encounter Details Date Type Department Care Team (Late st Contact Info) Description 09/30/2013 Documentation Visit [address] [address] Neha Argueta, PT [address] [place] [address] Social History Tobacco Use Types [...] Phill Live RN documented in this encounter Progress Notes * Neha Argueta, PT - 09/30/2013 1629 EST [facility] [address] [place] [phone] Physical Therapy Discontinue/Discharge Note Date: 09/30/2013 Reason [...] on filedocumented in this encounter Care Teams Fur Dry Cleaner Hand Relationship Specialty Start Date End Date Remedios Mehta MD [address] [place] [phone] PCP - General 02/19/09 01/04/15 documented as of this encounter
--- OUTSIDE RECORDS SUMMARY | 2024-09-17 15:18 | XMS_ITS | Encounter Summary ---
Author Organization [facility] Address [address] [place] [address] Care Team Providers Care Can Crimper Name Role Phone Remedios Mehta MD Primary Care Provider +1 -[phone] Reason for Visit * Reason Comments Back Pain Radiates left sales and service specialist ior thigh Encounter Details Date Type Department Care Team (Latest Contact Info) Description 11/22/2013 7:45 EST Office Visit [facility] Interventional Pain [address] [place], [place] [phone] Abundio Tubbs, DO [address] [place] [address] [address] [place] [address] Lumbosacral spondylosis without myelopathy (Primary Dx); Chronic [...] 11/22/2013 0758 EST documented in this encounter Mental Status * [...] Mak Soares RN - 11/22/2013 9:07 EST [facility] [address] [address] Patient Instructions You have had your bilateral [...] Husain : 1960 Date of Service: 11/22/2013 Felt Strip Finisher: Barney Zhang MD Termite Exterminator Helper: None Procedure: Diagnostic lumbar facet joint injection [...] 12/2012 C3-4 b/l facet injections-no relief Abundio Tubbs, DO 11/22/2013 * Dayna Tiwari RN - 11/22/2013 0802 EST [facility] Rooming Note Does patient have a Balance Bridge Assembler? yes Is patient NPO? (Solids since midnight [...] unspecified documented in this encounter Care Teams Can Crimper Relationship Specialty Start Date End Date Remedios Mehta MD [address] [place] [phone] PCP - General 02/19/09 01/04/15 documented as of this encounter
--- OUTSIDE RECORDS SUMMARY | 2024-09-17 15:18 | XMS_ITS | Encounter Summary ---
Author Organization [facility] Address [address] [place] [address] Care Team Providers Care Principal Process Engineer Name Role Phone Remedios Mehta MD Primary Care Provider +1 -[phone] Reason for Visit * Reason Comments Other Encounter Details Date Type Department Care Team (Late st Contact Info) Description 01/17/2014 [facility] Medicine [address] [address] Remedios Mehta MD [address] [place] [phone] Other Social History Tobacco Use Types [...] on filedocumented in this encounter Care Teams Principal Process Engineer Relationship Specialty Start Date End Date Remedios Mehta MD [address] [place] [phone] PCP - General 02/19/09 01/04/15 documented as of this encounter
--- OUTSIDE RECORDS SUMMARY | 2024-09-17 15:18 | XMS_ITS | Encounter Summary ---
Author Organization [facility] Address [address] [place] [address] Care Team Providers Care Supervisor Heavy Equipment Name Role Phone Remedios Mehta MD Primary Care Provider +1 -[phone] Reason for Visit * Reason Onset Date Comments Medications Refill 02/24/2014 Encounter Details Date Type Department Care Team (Late st Contact Info) Description 02/24/[address] [address] Remedios Mehta MD [address] [place] [phone] Medications Refill Social History Tobacco Use [...] Phill Live, RON documented in this encounter Plan of Treatment [...] filedocumented in this encounter Care Teams Supervisor Heavy Equipment Relationship Specialty Start Date End Date Remedios Mehta MD [address] [place] [phone] PCP - General 02/19/09 01/04/15 documented as of this encounter
--- OUTSIDE RECORDS SUMMARY | 2024-09-17 15:18 | XMS_ITS | Encounter Summary ---
Author Organization [facility] Address [address] [place] [address] Care Team Providers Care Cake Cutter Machine Name Role Phone Remedios Mehta MD Primary Care Provider +1 -[phone] Reason for Visit * Reason Comments Follow-up Fibromyalgia Encounter Details Date Type Department Care Team (Late st Contact Info) Description 12/02/2013 10:20 EST Office Visit [facility] Rheumatology & Immunology - [facility] [address] [place] [address] Yovana Callejas MD [address] [place] [address] [phone] Pain of right leg (Primary [...] 12/02/2013 1041 EST documented in this encounter Mental Status [...] Refills Last Filled Start Date End Date pregabalin (LYRICA) 25 mg capsule Take 2 [...] She was going to move to the [facility]; however, this deal has fallen through so [...] (FLONASE) 50 mcg/actuation nasal spray Instill 1 [place] into both nostrils daily. 1 Bottle 5 [...] documented as of this encounter Care Teams Cake Cutter Machine Relationship Specialty Start Date End Date Remedios Mehta MD [address] [place] [phone] PCP - General 02/19/09 01/04/15 documented as of this encounter
--- OUTSIDE RECORDS SUMMARY | 2024-09-17 15:18 | XMS_ITS | Encounter Summary ---
Author Organization [facility] Address [address] [place] [address] Care Team Providers Care Metal Tile Setter Name Role Phone Remedios Mehta MD Primary Care Provider +1 -[phone] Reason for Visit * Reason Comments Other Encounter Details Date Type Department Care Team (Late st Contact Info) Description 10/15/2013 Telephone [facility] Rheumatology & Immunology - [facility] [address] [place], [place] [phone] Yovana Callejas MD [address] [place] [address] [phone] Other Social History Tobacco Use [...] Refills Last Filled Start Date End Date CYMBALTA 60 mg capsule TAKE ONE CAPSULE BY MOUTH EVERY DAY 90 Cap 3 10/15/2013 8 documented in this encounter Plan of Treatment Not on file documented as of this encounter Visit Diagnoses Not on filedocumented in this encounter Discontinued Medications Medication Sig Discontinue Reason Start Date End Da te duloxetine (CYMBALTA) 60 mg capsuleIndications:Myalgi a and myositis Take 1 Cap by mouth daily. Reorder 10/11/2012 10/15/2013 documented as of this encounter Care Teams Metal Tile Setter Relationship Specialty Start Date End Date Remedios Mehta MD [address] [place] [phone] PCP - General 02/19/09 01/04/15 documented as of this encounter
--- OUTSIDE RECORDS SUMMARY | 2024-09-17 15:18 | XMS_ITS | Encounter Summary ---
Author Organization [facility] Address [address] [place] [address] Care Team Providers Care Sales Counselor Name Role Phone Remedios Mehta MD Primary Care Provider + -[phone] Encounter Details Date Type Department Care Team (Late st Contact Info) Description 02/12/2014 Community Health Team [address] [address] Yaneth Alberts, RD [address] [place] [address] Social History Tobacco Use Types [...] documented in this encounter Progress Notes * Yaneth Alberts RD - 02/12/2014 1548 EDT Telephone call from pt with question regarding time of upcoming appt with RD. Time spent with pt: 5 minutes Referrals: n/a Follow-up: 02/17/14 @ [facility] @ 2pm [facility] Status: Active with [facility] DOMINICK Alberts RD, CD Clinical Dietitian, [facility] documented in this encounter Plan of Treatment Not on file documented as of this encounter Visit Diagnoses Not on filedocumented in this encounter Care Teams Sales Counselor Relationship Specialty Start Date End Date Remedios Mehta MD [address] [place] [phone] PCP - General 02/19/09 01/04/15 documented as of this encounter
--- OUTSIDE RECORDS SUMMARY | 2024-09-17 15:18 | XMS_ITS | Encounter Summary ---
Author Organization [facility] Address [address] [place] [address] Care Team Providers Care Senior Web Analyst Name Role Phone Remedios Mehta MD Primary Care Provider [phone] Reason for Visit * Reason Comments Other Encounter Details Date Type Department Care Team (Late st Contact Info) Description 01/12/2014 [facility] Medicine [address] [address] Remedios Mehta MD [address] [place] [phone] Other Social History Tobacco Use Types [...] Date traZODone (DESYREL) 100 mg tablet Take 1-2 Tabs by mouth at bedtime as needed for Sleep. 56 Tab 3 01/13/2014 4 documented in this encounter Plan of Treatment Not on file documented as of this encounter Visit Diagnoses Not on filedocumented in this encounter Discontinued Medications Medication Sig Discontinue Reason Start Date End Da te traZODone (DESYREL) 100 mg tabletIndications:Pain of right leg Take 1 Tab by mouth at bedtime. Reorder 09/13/2013 01/12/2014 documented as of this encounter Care Teams Senior Web Analyst Relationship Specialty Start Date End Date Remedios Mehta MD [address] [place] [phone] PCP - General 02/19/09 01/04/15 documented as of this encounter
--- OUTSIDE RECORDS SUMMARY | 2024-09-17 15:18 | XMS_ITS | Encounter Summary ---
Author Organization [facility] Address [address] [place] [address] Care Team Providers Care Gold Marker Name Role Phone Remedios Mehta MD Primary Care Provider [phone] [phone] Reason for Visit * Reason Onset Date Comments Medications Refill 11/20/2013 Encounter Details Date Type Department Care Team (Late st Contact Info) Description 11/20/[address] [address] Remedios Mehta MD [address] [place] [phone] Medications Refill Social History Tobacco Use [...] Encounter - Nadia Keith RN - 11/20/2013 7837 EST Lovastatin written in jun 2013 for >1yr supply Refill request for lovastatin refused Should be refills at pharmacy * Telephone Encounter - Jaz De Leon - 11/20/2013 1533 EST Medication(s) Requested: Lovastatin 10 mg takes one daily;dispense;90;rf;4 [facility] Last Refill Date: 07.12.13 Last Visit Date: 09.13.13 Next Visit Date: 12/17/2013 Is patient out of medication? yes Jaz De Leon 11/20/2013 15:34 documented in this encounter Plan of Treatment Not on file documented as of this encounter Visit Diagnoses Diagnosis Hyperlipidemia- Primary Other and unspecified hyperlipidemia documented in this encounter Care Teams Gold Marker Relationship Specialty Start Date End Date Remedios Mehta MD [address] [place] [phone] PCP - General 02/19/09 01/04/15 documented as of this encounter
--- OUTSIDE RECORDS SUMMARY | 2024-09-17 15:18 | XMS_ITS | Encounter Summary ---
Author Organization [facility] Address [address] [place] [address] Care Team Providers Care Freight Trucker Name Role Phone Remedios Mehta MD Primary Care Provider + [phone] Encounter Details Date Type Department Care Team (Late st Contact Info) Description 02/18/2014 [facility] [address] [address] Yaneth Alberts, RD [address] [place] [address] Social History Tobacco Use Types [...] therapies. Completed referral for [facility] [place]. Goals: 1. Log foods aiming for 1300 calories/day 2. Increase physical activity by going to [facility] [place] Time spent with pt: Referrals: [facility] [place] Follow-up: 03/31/14 @ [facility] @ 1pm [facility] Status: Active with CHT RD Yaneth Alberts RD, CD Clinical Dietitian, CHT documented in this encounter Plan of Treatment Not on file documented as of this encounter Visit Diagnoses Not on filedocumented in this encounter Care Teams Freight Trucker Relationship Specialty Start Date End Date Remedios Mehta MD [address] [place] [phone] PCP - General 02/19/09 01/04/15 documented as of this encounter
--- OUTSIDE RECORDS SUMMARY | 2024-09-17 15:18 | XMS_ITS | Encounter Summary ---
Author Organization [facility] Address [address] [place] [address] Care Team Providers Care Deputy Chief Magistrate Name Role Phone Remedios Mehta MD Primary Care Provider [phone] [phone] Encounter Details Date Type Department Care Team (Late st Contact Info) Description 01/27/2014 11:00 EDT Community Health Team [address] [phone] C[facility], [facility] Social History Tobacco Use Types Packs/Day Years [...] in this encounter Progress Notes * Yaneth Alberts, [...] least 30 minutes. 24- hour recall Breakfast: malawian muffin with peanut butter and orange juice [...] cht lakeshia Alberts RD, CD Clinical Dietitian, T documented in this encounter Plan of Treatment Not on file documented as of this encounter Visit Diagnoses Not on filedocumented in this encounter Care Teams Deputy Chief Magistrate Relationship Specialty Start Date End Date Remedios Mehta MD [address] [place] [phone] PCP - General 02/19/09 01/04/15 documented as of this encounter
--- OUTSIDE RECORDS SUMMARY | 2024-09-17 15:18 | XMS_ITS | Encounter Summary ---
Author Organization [facility] Address [address] [place] [address] Care Team Providers Care Roll Tension Tester Name Role Phone Remedios Mehta MD Primary Care Provider [phone] None, Provider Primary Care Provider German PabonC Primary Care Provider [phone] Elly Ling NP Primary Care Provider [phone] Reason for Visit * Reason Comments Other Encounter Details Date Type Department Care Team (Late st Contact Info) Description 01/15/2014 [facility] Family Medicine [address] [address] Remedios Mehta MD [address] [place] [address] Other Social History Tobacco Use [...] documented as of this encounter Care Teams Roll Tension Tester Relationship Specialty Start Date End Date Remedios Mehta MD [address] [place] [phone] PCP - General 02/19/09 01/04/15 None, Provider PCP - General 01/05/15 09/23/18 German Garzon, PALisbethC [address] [place] [phone] PCP - General 09/28/18 05/29/22 Elly Ling NP [address] [place] [address] PCP - General Family Medicine - Primary Care 05/30/22 documented as of this encounter
--- OUTSIDE RECORDS SUMMARY | 2024-09-17 15:18 | XMS_ITS | Encounter Summary ---
Author Organization [facility] Address [address] [place] [address] Care Team Providers Care Rear Admiral Name Role Phone Remedios Mehta MD Primary Care Provider [phone] None, Provider Primary Care Provider German PabonC Primary Care Provider [phone] Elly Ling NP Primary Care Provider [phone] Reason for Visit * Reason Comments Other Encounter Details Date Type Department Care Team (Late st Contact Info) Description 03/21/2014 [facility] Family Medicine [address] [address] Remedios Mehta MD [address] [place] [address] Other Social History Tobacco Use [...] documented as of this encounter Care Teams Rear Admiral Relationship Specialty Start Date End Date Remedios Mehta MD [address] [place] [phone] PCP - General 02/19/09 01/04/15 None, Provider PCP - General 01/05/15 09/23/18 German Garzon PA-C [facility] [place] [address] PCP - General 09/28/18 05/29/22 Elly Ling PERSONNEL RESEARCH PSYCHOLOGIST [address] [place], [place] [phone] PCP - General Family Medicine - Primary Care 05/30/22 documented as of this encounter
--- OUTSIDE RECORDS SUMMARY | 2024-09-17 15:18 | XMS_ITS | Encounter Summary ---
Author Organization [facility] Address [address] [place] [address] Care Team Providers Care Marble Machine Operator Name Role Phone Remedios Mehta MD Primary Care Provider [phone] Reason for Visit * Reason Onset Date Comments Results 02/26/2014 Encounter Details Date Type Department Care Team (Late st Contact Info) Description 02/26/2014 Telephone [facility] Interventional Pain [address] [place], [place] [phone] Abundio Tubbs, DO [address] [facility] [address] [place], [place] [address] Results Social History Tobacco Use Types Packs/Day [...] on filedocumented in this encounter Care Teams Marble Machine Operator Relationship Specialty Start Date End Date Remedios Mehta MD [address] [place] [phone] PCP - General 02/19/09 01/04/15 documented as of this encounter
--- OUTSIDE RECORDS SUMMARY | 2024-09-17 15:18 | XMS_ITS | Encounter Summary ---
Author Organization [facility] Address [address] [place] [address] Care Team Providers Care Arboriculturist Name Role Phone Remedios Mehta MD Primary Care Provider [phone] Reason for Visit * Reason Comments Back Pain low back pain Encounter Details Date Type Department Care Team (Latest Contact Info) Description 02/25/2014 9:45 EDT Office Visit [facility] Interventional Pain [address] [place], [place] [phone] Abundio Tubbs, DO [address] [facility] [address] [place] [address] Lumbosacral spondylosis without myelopathy (Primary Dx); Lumbar [...] 02/25/2014 0948 EDT documented in this encounter Mental Status [...] 02/25/2014 10:28 EDT [facility] [address] [address] Patient Instructions You have had your left [...] NAME: Cherelle Husain : 1960 DOS: 02/25/2014 HOTEL RECREATIONAL FACILITIES MANAGER: Abundio Tubbs DO PHOTOGRAPHER STILL: N/A PROCEDURE: Facet injections; left L3-L4 DIAGNOSIS: [...] * Georgie Foster - 02/25/2014 0951 EDT [facility] Rooming Note Does patient have a Wine Blender? yes Is patient NPO? (Solids since midnight [...] Lumbago documented in this encounter Care Teams Arboriculturist Relationship Specialty Start Date End Date Remedios Mehta MD [address] [place] [phone] PCP - General 02/19/09 01/04/15 documented as of this encounter
--- OUTSIDE RECORDS SUMMARY | 2024-09-17 15:18 | XMS_ITS | Encounter Summary ---
Author Organization [facility] Address [address] [place] [address] Care Team Providers Care Cruise Agent Name Role Phone Remedios Mehta MD Primary Care Provider [phone] Reason for Visit * Reason Onset Date Comments Medications Refill 12/20/2013 Encounter Details Date Type Department Care Team (Late st Contact Info) Description 12/20/[address] [address] Remedios Mehta MD [address] [place] [phone] Medications Refill Social History Tobacco Use [...] Phill Live, RON documented in this encounter Ordered Prescriptions Prescription Sig Dispense Quantity Refills Last Filled Start Date End Date omeprazole (PRILOSEC) 20 mg capsuleIndications: GERD (gastroesophageal reflux disease),Cough Take 1 Cap by mouth 2 times daily. 60 Cap 5 12/20/2013 09/24/2018 documented in this encounter Miscellaneous Notes * Telephone Encounter - Brook Weathers - 12/20/2013 1119 EST Medication(s) Requested: Omeprazole Pharmacy: [email or web address] Last Refill Date: 06/05/13 #60 5 refills [...] documented as of this encounter Care Teams Cruise Agent Relationship Specialty Start Date End Date Remedios Mehta MD [address] [place] [phone] PCP - General 02/19/09 01/04/15 documented as of this encounter
--- OUTSIDE RECORDS SUMMARY | 2024-09-17 15:18 | XMS_ITS | Encounter Summary ---
Author Organization [facility] Address [address] [place] [address] Care Team Providers Care Ski Lift Operator Name Role Phone Remedios Mehta MD Primary Care Provider [phone] Reason for Visit * Reason Onset Date Comments Medications Refill 12/18/2013 Encounter Details Date Type Department Care Team (Late st Contact Info) Description 12/18/[address] [address] Remedios Mehta MD [address] [place] [phone] Medications Refill Social History Tobacco Use [...] one every 6 hours for pain;dispense;116;rf;1 [facility] Last Refill Date: 09.13.13 Last Visit Date: 12.02.13 Next Visit Date: 12/23/2013 Is patient out of medication? Will be 12.20.13 Jaz De Leon 12/18/2013 15:47 documented in this encounter Plan of Treatment Not on file documented as of this encounter Results * OPIATE CONFIRMATION, URINE (04/22/2014 12:47 EDT) Conf, Opiates Positive [facility] Codeine Negative <100 ng/mL CANALES [...] use in employment-related drug testing. Performed by: [facility], [address], [place] [address], Petal Cutter: Sushila Pires, Ph.D. Urine specimen (specimen) URINE / Unknown 04/22/2014 12:47 EDT 04/22/2014 18:13 EDT us Remedios Mehta MD URINALYSIS ORDERABLES Fin al Result [facility] [address] [place] [address] * DRUG SCREEN 6 (04/22/2014 12:47 EDT) [...] Fin al Result [facility] [address] [place] [address] documented in this encounter Visit Diagnoses Diagnosis [...] documented as of this encounter Care Teams Ski Lift Operator Relationship Specialty Start Date End Date Remedios Mehta MD [address] [place] [phone] PCP - General 02/19/09 01/04/15 documented as of this encounter
--- OUTSIDE RECORDS SUMMARY | 2024-09-17 15:18 | XMS_ITS | Encounter Summary ---
Author Organization [facility] Address [address] [place] [address] Care Team Providers Care Core Composer Machine Tender Name Role Phone Remedios Mehta MD Primary Care Provider [phone] Encounter Details Date Type Department Care Team (Latest Contact Info) Description 02/05/2014 8:23 EDT - 02/05/2014 8:59 EDT Hospital Encounter [facility] [address] [place] [address] Abundio Tubbs, DO [address] [place] [address] [address] [place] [address] Discharge Disposition: Home or Self Care Social [...] bowel syndrome),GERD (gastroesophageal reflux disease) Instill 1 [place] into both nostrils daily. 1 Bottle 5 [...] on filedocumented in this encounter Care Teams Core Composer Machine Tender Relationship Specialty Start Date End Date Remedios Mehta MD [address] [place] [phone] PCP - General 02/19/09 01/04/15 documented as of this encounter
--- OUTSIDE RECORDS SUMMARY | 2024-09-17 15:18 | XMS_ITS | Encounter Summary ---
Author Organization [facility] Address [address] [place] [address] Care Team Providers Care Reference Data Expert Name Role Phone Remedios Mehta MD Primary Care Provider [phone] Reason for Visit * Reason Comments Joint Pain back, knee and incre ased pain with weather Encounter Details Date Type Department Care Team (Late st Contact Info) Description 03/06/2014 10:00 EDT [facility] - [facility] [address] [place] [address] Yovana Callejas MD [address] [place] [address] [phone] Fibromyalgia (Primary Dx) Social History [...] Filled Start Date End Date pregabalin (LYRICA) 50 mg capsule Take 1 [...] her home and planning to move to [place], and she has been reunited with a grade school sweetheart. At the same time, her daughter, who also lives in [place], is talking ofputting her grandson, age 11, [...] (FLONASE) 50 mcg/actuation nasal spray Instill 1 [place] into both nostrils daily. 1 Bottle [...] 95.709 kg (211 lb) BMI 40.89 kg/m2 [facility]03[facility]2010 EXAM: She is tearful, appears tired. Has a broad-based and unsteady gait. Her skin shows no bruisesor changes. Myofascial tender points are discretely and profoundly tender throughout. She has a normal gait and 5/5 hand office machine embossograph operator. Joints show no synovitis, although she complains [...] in 3 months. If she is in [place] at that time, I will facilitate a [...] documented as of this encounter Care Teams Reference Data Expert Relationship Specialty Start Date End Date Remedios Mehta MD [address] [place] [phone] PCP - General 02/19/09 01/04/15 documented as of this encounter
--- OUTSIDE RECORDS SUMMARY | 2024-09-17 15:18 | XMS_ITS | Encounter Summary ---
Author Organization [facility] Address [address] [place] [address] Care Team Providers Care Lead Fabricator Name Role Phone Remedios Mehta MD Primary Care Provider [phone] None, Provider Primary Care Provider German PabonC Primary Care Provider [phone] Elly Ling NP Primary Care Provider [phone] Reason for Visit * Reason Onset Date Comments Paperwork request 04/01/2014 Encounter Details Date Type Department Care Team (Late st Contact Info) Description 04/01/2014 Telephone [facility] Family Medicine [address] [address] Remedios Mehta MD [address] [place] [phone] Paperwork request Social History Tobacco Use [...] as of this encounter Care Teams Lead Fabricator Relationship Specialty Start Date End Date Remedios Mehta MD [address] [place] [phone] PCP - General 02/19/09 01/04/15 None, Provider PCP - General 01/05/15 09/23/18 German Garzon PA-C [facility] [place] [address] PCP - General 09/28/18 05/29/22 Elly Ling NP [address] [place] [address] PCP - General Family Medicine - Primary Care 05/30/22 documented as of this encounter
--- OUTSIDE RECORDS SUMMARY | 2024-09-17 15:18 | XMS_ITS | Encounter Summary ---
Author Organization [facility] Address [address] [place] [address] Care Team Providers Care Painter Mirror Name Role Phone Remdeios Mehta MD Primary Care Provider [phone] Reason for Visit * Reason Onset Date Comments Medications Refill 02/17/2014 Encounter Details Date Type Department Care Team (Late st Contact Info) Description 02/17/[address] [address] Remedios Mehta MD [address] [place] [phone] Medications Refill Social History Tobacco Use [...] scheduledto see Dr. Strong 03/17. Routed to [facility]. Harjit Buckner RN * Telephone Encounter - [...] documented as of this encounter Care Teams Painter Mirror Relationship Specialty Start Date End Date Remedios Mehta MD [address] [place] [phone] PCP - General 02/19/09 01/04/15 documented as of this encounter
--- OUTSIDE RECORDS SUMMARY | 2024-09-17 15:18 | XMS_ITS | Encounter Summary ---
Author Organization [facility] Address [address] [place] [address] Care Team Providers Care Cushion Mat Maker Name Role Phone Remedios Mehta MD Primary Care Provider [phone] Encounter Details Date Type Department Care Team (Late st Contact Info) Description 12/04/2013 Orders Only [facility] Medicine [address] [phone] Argelia Farias RN Chronic back pain (Primary [...] LDL) (12/17/2013 8:53 EST) Cholesterol 261 mg/dl [facility] Comment: Desirable:<200 Borderline High:200-239 High:>dp=704 Triglycerides 220 mg/dl [facility] Comment: Normal:<150 Borderline High:150-199 High:200-499 Very High:>lg=345 HDL 38 mg/dl [facility] Comment: Low:<40 Normal:40-60 Desirable: >60 LDL, Calculated 179 mg/dl [facility] Comment: Optimal:<100 Near Optimal:100-129 Borderline High:130-159 High:160-189 Very High:>st=288 Chol/HDL Ratio 6.9 [facility] Fasting? YES [facility] Non HDL Cholesterol 223 mg/dl [facility] Comment: Desirable:<130 Borderline:130-159 High: 160-189 Very High: >fs=223 Blood specimen (specimen) 12/17/2013 8:53 EST 12/17/2013 12:37 EST us Remedios Mehta MD CHEMISTRY & BLOOD GAS ORD ERABLES Final Result [facility] [address] [place] [address] documented in this encounter Visit Diagnoses Diagnosis Chronic back pain- Primary Backache, unspecified Other and unspecified hyperlipidemia documented in this encounter Care Teams Cushion Mat Maker Relationship Specialty Start Date End Date Remedios Mehta MD [address] [place] [phone] PCP - General 02/19/09 01/04/15 documented as of this encounter
--- OUTSIDE RECORDS SUMMARY | 2024-09-17 15:18 | XMS_ITS | Encounter Summary ---
Author Organization [facility] Address [address] [place] [address] Care Team Providers Care Lace Pinner Name Role Phone Remedios Mehta MD Primary Care Provider [phone] Reason for Visit * Reason Comments Back Pain lower Neck Pain Shoulder Pain right Encounter Details Date Type Department Care Team (Latest Contact Info) Description 01/10/2014 9:45 EDT Office Visit [facility] Interventional Pain [address] [place], [place] [phone] Abundio Cormier, DO [address] [place] [address] [place] [address] Lumbosacral spondylosis without myelopathy (Primary Dx); Chronic [...] 01/10/2014 1008 EDT documented in this encounter Mental Status [...] * Veronica Roy - 01/10/2014 1015 EDT [facility] Rooming Note Does patient have a Edger Automatic? yes Is patient NPO? (Solids since midnight [...] degenerative joint disease. 3. Aortoiliac atherosclerotic calcification. us Abundio Suly DO IMG CT ORDERABLES Final Result * NM INJECTION NO CHARGE (02/04/2014 8:36 EDT) Anatomical Region Laterality Modality Other 02/04/2014 8:36 EDT Narrative 02/04/2014 8:36 EDT Non Reportable Exam Procedure Note 02/04/2014 Non Reportable Exam us Abundio Suly DO IMG NM ORDERABLES Final Result documented in this encounter Visit Diagnoses Diagnosis Lumbosacral spondylosis without myelopathy- Primary Chronic low back pain Lumbago Lumbar facet arthropathy Lumbosacral spondylosis without myelopathy Chronic neck pain Cervicalgia documented in this encounter Care Teams Lace Pinner Relationship Specialty Start Date End Date Remedios Mehta MD [address] [place] [phone] PCP - General 02/19/09 01/04/15 documented as of this encounter
--- OUTSIDE RECORDS SUMMARY | 2024-09-17 15:18 | XMS_ITS | Encounter Summary ---
Author Organization [facility] Address [address] [place] [address] Care Team Providers Care Art Therapist Name Role Phone Janine Remedios Doe MD Primary Care Provider [phone] None, Provider Primary Care Provider German PabonC Primary Care Provider Elly Ling NP Primary Care Provider [phone] Reason for Visit * Reason Comments Other Encounter Details Date Type Department Care Team (Late st Contact Info) Description 10/08/2013 [facility] Spine Program - [address] [address] Marylou Gentile PA-C [address] [place] [phone] Other Social History Tobacco Use Types [...] documented as of this encounter Care Teams Art Therapist Relationship Specialty Start Date End Date Remedios Mehta MD [address] [place] [phone] PCP - General 02/19/09 01/04/15 None, Provider PCP - General 01/05/15 09/23/18 German Garzon PA-C [address] [place] [phone] PCP - General 09/28/18 05/29/22 Elly Ling NP [address] [place] [address] PCP - General Family Medicine - Primary Care 05/30/22 documented as of this encounter
--- OUTSIDE RECORDS SUMMARY | 2024-09-17 15:18 | XMS_ITS | Encounter Summary ---
Author Organization [facility] Address [address] [place] [address] Care Team Providers Care Electric Well Logging Operator Name Role Phone Remedios Mehta MD Primary Care Provider [phone] Reason for Referral * (Routine/Next Available) - Closed Specialty Diagnoses / Procedures Referred By Joao proctor Referred To Contact Diagnoses Extrinsic asthma, unspecified Wheezing Procedures BRONCHIAL CHALLENGE - METHACHOLINE Roberto Hodges MD Phone: tel: fax: Referral ID Status Reason Start Date Expiration Date Visits Re quested Visits Authorized [id number] Closed 12/04/2013 1 1 Reason for Visit * Reason Onset Date Comments Pre-visit Orders 12/02/2013 New order for M ethacholine Encounter Details Date Type Department Care Team (Late st Contact Info) Description 12/02/2013 Telephone [facility] Pulmonology & Critical Care - [facility] [address] [place], [place] [phone] Roberto Hodges MD [address] [place], [place] [phone] Pre-visit Orders (New order for Methacholine) Social [...] 2013 documented in this encounter Care Teams Electric Well Logging Operator Relationship Specialty Start Date End Date Remedios Mehta MD [address] [place] [phone] PCP - General 02/19/09 01/04/15 documented as of this encounter
--- OUTSIDE RECORDS SUMMARY | 2024-09-17 15:18 | XMS_ITS | Encounter Summary ---
Author Organization [facility] Address [address] [place] [address] Care Team Providers Care Systems Trainer Name Role Phone Remedios Mehta MD Primary Care Provider [phone] [phone] Reason for Visit * Reason Onset Date Comments Sinusitis 11/20/2013 Encounter Details Date Type Department Care Team (Late st Contact Info) Description 11/20/[address] [address] Remedios Mehta MD [address] [place] [phone] Sinusitis Social History Tobacco Use Types [...] Refills Last Filled Start Date End Date azithromycin (ZITHROMAX) 250 mg tablet Take 2 tablets (500 mg) on day 1, followed by 1 tablet (250 mg) once daily on days 2 through 5. 6 Tab 0 11/20/2013 4 documented in this encounter Miscellaneous Notes * [...] antibiotic to treat. [facility] Appointment Offered? Nurse triage Jaz De Leon 11/20/2013 15:40 documented in this encounter Plan of Treatment Not on file documented as of this encounter Visit Diagnoses Not on filedocumented in this encounter Care Teams Systems Trainer Relationship Specialty Start Date End Date Remedios Mehta MD [address] [place] [phone] PCP - General 02/19/09 01/04/15 documented as of this encounter
--- OUTSIDE RECORDS SUMMARY | 2024-09-17 15:18 | XMS_ITS | Encounter Summary ---
Author Organization [facility] Address [address] [place] [address] Care Team Providers Care Welfare Visitor Name Role Phone Remedios Mehta MD Primary Care Provider [phone] [phone] Encounter Details Date Type Department Care Team (Latest Contact Info) Description 02/05/2014 9:00 EDT - 02/05/2014 23:59 EDT Hospital Encounter [facility] Pulmonary Function Lab - Main [place] [address] [place], [place] [id number] Extrinsic asthma, unspecified; Wheezing Discharge Disposition: Home [...] Phill Live RN documented in this encounter Medications at Time [...] bowel syndrome),GERD (gastroesophageal reflux disease) Instill 1 [place] into both nostrils daily. 1 Bottle 5 [...] Self Skilled Nursing documented in this encounter Progress Notes * Thao Carrington - 02/05/2014 1111 EDT Testing was performed and recorded in [facility] [employer]. See complete report in scanned documents. documented [...] needed we will contact your patient directly. us Remedios Mehta MD IMG MAMMOGRAPHY ORDERABLE S Final Result * PULMONARY FUNCTION REPORT - SCANNED (03/11/2014 13:18 EDT) 03/11/2014 13:1 8 EDT us Scan 2 Summer Law Clerk PROCEDURE/MINOR SURGICAL OR DERABLES Final Result documented in this encounter Visit [...] 02/04/2014 documented in this encounter Care Teams Welfare Visitor Relationship Specialty Start Date End Date Remedios Mehta MD [address] [place] [phone] PCP - General 02/19/09 01/04/15 documented as of this encounter
--- OUTSIDE RECORDS SUMMARY | 2024-09-17 15:18 | XMS_ITS | Encounter Summary ---
Author Organization [facility] Address [address] [place] [address] Care Team Providers Care Medical Information Specialist Name Role Phone Remedios Mehta MD Primary Care Provider [phone] [phone] Reason for Visit * Reason Onset Date Comments Results 11/25/2013 lumbar facet Encounter Details Date Type Department Care Team (Late st Contact Info) Description 11/25/2013 Telephone [facility] Interventional Pain [address] [place], [place] [phone] Delia Lama RN [address] [place] [address] Results (lumbar facet ) Social History Tobacco [...] filedocumented in this encounter Care Teams Medical Information Specialist Relationship Specialty Start Date End Date Remedios Mehta MD [address] [place] [phone] PCP - General 02/19/09 01/04/15 documented as of this encounter
--- OUTSIDE RECORDS SUMMARY | 2024-09-17 15:18 | XMS_ITS | Encounter Summary ---
Author Organization [facility] Address [address] [place] [address] Care Team Providers Care Executive Candidate Developer Name Role Phone Remedios Mehta MD Primary Care Provider [phone] [phone] Reason for Visit * Reason Comments Other Encounter Details Date Type Department Care Team (Late st Contact Info) Description 01/14/2014 [facility] Medicine [address] [address] Remedios Mehta MD [address] [place] [phone] Other Social History Tobacco Use Types [...] Entry Date Author Yes 07/17/2013 23:00 EDT Maria T, Car oline, RN documented in this encounter Ordered Prescriptions Prescription Sig Dispense Quantity Refills Last Filled Start Date End Date meloxicam (MOBIC) 7.5 mg tablet Take 1 [...] documented as of this encounter Care Teams Executive Candidate Developer Relationship Specialty Start Date End Date Remedios Mehta MD [address] [place] [phone] PCP - General 02/19/09 01/04/15 documented as of this encounter
--- OUTSIDE RECORDS SUMMARY | 2024-09-17 15:18 | XMS_ITS | Encounter Summary ---
Author Organization [facility] Address [address] [place] [address] Care Team Providers Care Banking Teacher Name Role Phone Remedios Mehta MD Primary Care Provider [phone] [phone] Reason for Visit * Reason Onset Date Comments Pharmacy 12/17/2013 [facility] Encounter Details Date Type Department Care Team (Late st Contact Info) Description 12/17/2013 Telephone [facility] Rheumatology & Immunology - [facility] [address] [place] [address] Yovana Callejas MD [address] [place] [phone] Pharmacy ([facility]) Social History Tobacco Use Types [...] - 12/17/2013 0937 EST Per Shannon at [facility] pt's insurance is requesting 50 [...] documented as of this encounter Care Teams Banking Teacher Relationship Specialty Start Date End Date Remedios Mehta MD [address] [place] [phone] PCP - General 02/19/09 01/04/15 documented as of this encounter
--- OUTSIDE RECORDS SUMMARY | 2024-09-17 15:18 | XMS_ITS | Encounter Summary ---
Author Organization [facility] Address [address] [place] [address] Care Team Providers Care Occupational Nurse Name Role Phone Remedios Mehta MD Primary Care Provider [phone] -[phone] Reason for Visit * Reason Onset Date Comments Medication Questions 01/10/2014 Encounter Details Date Type Department Care Team (Late st Contact Info) Description 01/10/2014 Telephone [facility] Interventional Pain [address] [place] [address] Abundio Tubbs, DO [address] [facility] [address] [place], [place] [address] Medication Questions Social History Tobacco Use Types [...] documented as of this encounter Care Teams Occupational Nurse Relationship Specialty Start Date End Date Remedios Mehta MD [address] [place] [phone] PCP - General 02/19/09 01/04/15 documented as of this encounter
--- OUTSIDE RECORDS SUMMARY | 2024-09-17 15:18 | XMS_ITS | Encounter Summary ---
Author Organization [facility] Address [address] [place] [address] Care Team Providers Care Elementary School Music Teacher Name Role Phone Remedios Mehta MD Primary Care Provider [phone] [phone] Reason for Referral * Consult (Routine/Next Available) - Specialty Report Received Specialty Diagnoses / Procedures Referred By Joao proctor [facility] Diagnoses Chronic pain syndrome Remedios Mehta MD Phone: tel: fax: Referral ID Status Reason Start Date Expiration Date Visits Requested Visits Authorized [id number] Specialty Report Received Specialty Services Required 12/23/2013 [...] CHT within a week please call the [facility] at [phone]. Reason for Visit * Reason Comments Chronic Pain arthritis, fibromyal aleena Hyperlipidemia Encounter Details Date Type Department Care Team (Late st Contact Info) Description 12/23/2013 11:45 EST Office Visit [facility] Medicine [address] [phone] Remedios Mehta MD [address] [place] [phone] Chronic pain syndrome (Primary Dx); [...] documented in this encounter Discharge Diagnoses Diagnosis 272.4 HYPERLIPIDEMIA NEC/NOS[ICD-9-CM] 338.4 CHRONIC PAIN SYNDROME[ICD-9-CM] 564.1 IRRITABLE COLON[ICD-9-CM] 278.00 OBESITY NOS[ICD-9-CM] documented in this encounter Ordered Prescriptions Prescription Sig Dispense Quantity Refills Last Filled Start Date End Date lovastatin (MEVACOR) 20 mg tabletIndications:H yperlipidemia Take 1 Tab by mouth daily. 90 Tab 4 12/23/2013 polyethylene glycol (GLYCOLAX) 17 gram/dose powderIndications:I C (irritable colon) Take 17 g by mouth daily. 1 Bottle 3 12/23/2013 10/17/2014 documented in this encounter Progress Notes * Remedios Strong MD - 12/23/2013 2331 EST Subjective: Patient [...] winter. New boyfriend - up visiting from [facility] - they went to middle school together. [...] (FLONASE) 50 mcg/actuation nasal spray Instill 1 [place] into both nostrils daily. 1 Bottle 5 [...] use in employment-related drug testing. Performed by: Marmarth Owingo [facility], [address], [place] [address], [employer]: Sushila Pires, Ph.D. Urine specimen (specimen) URINE / Unknown 12/23/2013 12:20 EST 12/23/2013 18:18 EST us Remedios Mehta MD URINALYSIS ORDERABLES Fin al Result Performing Organization Address City/State/[facility] de Phone Number [facility] [address] [place] [address] * DRUG SCREEN 6 (12/23/2013 12:20 EST) Amphetamine Screen, Urine Negative screen. [facility] [...] Unknown 12/23/2013 12:20 EST 12/23/2013 18:18 EST us Remedios Mehta MD URINALYSIS ORDERABLES Fin al Result Performing Organization Address City/State/[facility] Co de Phone Number [facility] [address] [place] [address] documented in this encounter Visit Diagnoses Diagnosis [...] documented as of this encounter Care Teams Elementary School Music Teacher Relationship Specialty Start Date End Date Remedios Mehta MD [address] [place] [phone] PCP - General 02/19/09 01/04/15 documented as of this encounter
--- OUTSIDE RECORDS SUMMARY | 2024-09-17 15:19 | XMS_ITS | Encounter Summary ---
Author Organization [facility] Address [address] [place] [address] Care Team Providers Care Work Over Rig Operator Name Role Phone Remedios Mehta MD Primary Care Provider [phone] [phone] Reason for Visit * Reason Comments Drainage from Incision s/p total hystere ctomy 06/11/2013 Encounter Details Date Type Department Care Team (Late st Contact Info) Description 07/12/2013 9:30 EDT Office Visit [address] [address] Remedios Mehta MD [address] [place] [phone] S/P hysterectomy (Primary Dx); Endometrial cancer [...] 06/04/2013 1110 EDT documented in this encounter Mental Status * Because of a physical, mental, or emotional condition, do you have serious difficulty concentrating, remembering, or making decisions? (5 years old or older) Answer Entry Date Author Yes 04/15/2010 17:15 EDT Bala Veronica RN documented in this encounter Patient Instructions * Patient Instructions* Remedios Strong MD - 07/12/2013 10:14 EDT documented in this encounter Ordered Prescriptions Prescription Sig Dispense Quantity Refills Last Filled Start Date End Date ferrous gluconate (FERGON) 324 mg (38 mg iron) tablet Take 1 Tab by mouth 2 times daily with breakfast and dinner. 60 Tab 4 07/12/2013 1 lovastatin (MEVACOR) 10 mg tabletIndications: Hyperlipidemia Take 1 Tab by mouth daily. 90 Tab 4 07/12/2013 4 HYDROcodone-acetam inophen (NORCO) 10-325 mg per tablet Take 1 Tab by mouth every 6 hours as needed for Pain. 116 Tab 1 07/12/2013 3 documented in this encounter Progress Notes * [...] but still in pain every day when seh wakes and by the end of the [...] 50 mcg/actuation nasal spray Instill 1 [place] into both nostrils daily. 1 Bottle 5 [...] EDT) Neutrophils 50.0 45.5 - 79.7 % [facility] Lymphocytes 48.0(H) 15.0 - 46.8 % [facility] Monocytes 2.0 1.8 - 12.0 % [facility] ABS Neutrophils 2.78 2.20 - 8.85 K/cmm [facility] ABS Lymphs 2.67 1.09 - 3.30 K/cmm [facility] ABS Monocytes 0.11 0.1 - 0.8 K/cmm [facility] RBC Morphology 2+ [facility] Comment: Anisocytosis 1+ Poikilocytosis 1+ Polychromasia 1+ Macrocytes 1+ Microcytes Type of Diff: Manual [facility] 07/12/2013 10:1 6 EDT 07/12/2013 18:13 EDT us Remedios Mehta MD HEMATOLOGY & PF4 ORDERABL ES Final Result [facility] [address] [place] [address] * (ABNORMAL) HEMAGRAM (07/12/2013 10:16 EDT) Pathologist [facility] WBC 5.56 4.0 - 12.4 K/cmm [facility] RBC 3.71(L) 3.86 - 5.04 M/cmm [facility] Hemoglobin 10.7(L) 11.6 - 15.2 gm/dl [facility] HCT 32.3(L) 34.9 - 44.4 % [facility] MCV 87 81 - [address] [facility] MCH 28.9 26.7 - 33.[address] [facility] MCHC 33.2 32.1 - 35.9 gm/dl [facility] PLT 355(H) 141 - 320 K/cmm [facility] RDW-CV 17.0(H) 11.7 - 14.6 % [facility] 07/12/2013 10:1 6 EDT 07/12/2013 18:13 EDT us Remedios Mehta MD HEMATOLOGY & PF4 ORDERABL ES Final Result Performing Organization Address [facility] Co de Phone Number [facility] [address] [place] [address] * LIPID PROFILE (INCLUDES CHOLESTEROL, TRIGLYCERIDES, HDL, LDL) (07/12/2013 10:16 EDT) Cholesterol 217 mg/dl [facility] Comment: Desirable:<200 Borderline High:200-239 High:>vp=024 Triglycerides 161 mg/dl [facility] Comment: Normal:<150 Borderline High:150-199 High:200-499 Very High:>dl=285 HDL 37 mg/dl [facility] Comment: Low:<40 Normal:40-60 Desirable: >60 LDL, Calculated 148 mg/dl [facility] Comment: Optimal:<100 Near Optimal:100-129 Borderline High:130-159 High:160-189 Very High:>kt=776 Chol/HDL Ratio 5.9 [facility] Fasting? Unknown [facility] Non HDL Cholesterol 180 mg/dl [facility] Comment: Desirable:<130 Borderline:130-159 High: 160-189 Very High: >tl=968 Blood specimen (specimen) 07/12/2013 10:16 EDT 07/12/2013 18:13 EDT us Remedios Mehta MD CHEMISTRY & BLOOD GAS ORD ERABLES Final Result Performing Organization Address [facility] de Phone Number [facility] [address] [place] [address] * (ABNORMAL) COMPREHENSIVE METABOLIC PANEL (CMP) (07/12/2013 10:16 EDT) Potassium 4.2 3.5 - 5.0 mEq/L [...] - 46 U/L [facility] ALT 31 9 - 52 U/L [facility] [...] (specimen) 07/12/2013 10:16 EDT 07/12/2013 18:13 EDT us Reemdios Mehta MD CHEMISTRY & BLOOD GAS ORD ERABLES Final Result [facility] [address] [place] [address] documented in this encounter Visit Diagnoses Diagnosis [...] vaccination Need for prophylactic vaccination with combined gcezherxyb-hmnkiqu-kxiwflodf (DTP) vaccine Abdominal discomfort Abdominal pain, unspecified [...] documented as of this encounter Care Teams Work Over Rig Operator Relationship Specialty Start Date End Date Remedios Mehta MD [address] [place] [phone] PCP - General 02/19/09 01/04/15 documented as of this encounter
--- OUTSIDE RECORDS SUMMARY | 2024-09-17 15:19 | XMS_ITS | Encounter Summary ---
Author Organization [facility] Address [address] [place] [address] Care Team Providers Care Route Delivery Supervisor Name Role Phone Keshawn Mehta MD Primary Care Provider [phone] Reason for Referral * Consult (Routine/Next Available) - Closed Specialty Diagnoses / Procedures Referred By Joao proctor Referred To Contact Diagnoses Asthma Chronic low back pain Malignant neoplasm of corpus uteri, except isthmus ([facility]) Eliza Mccoy MD Referral ID Status Reason Start Date Expiration Date V isits Requested Visits Authorized [id number] Closed Specialty Services Required 06/14/2013 1 1 Question Answer Long-Term Referral - Assessment: CP Status, Pain Control Long-Term Referral - Disease Mgmt and Education about: Medication Mgmt Other - asthma, pain control Long-Term Referral - Wound Care: (Please include care and frequency.) Post Surgical Physical therapy is needed for: Evaluation, Safety, Gait/Mobility Assessment and Training, Post Surgical, Strength Training/Exercise Program Social Work Referral: Assess Ladle Mechanic Planning Needs, Eval Psychosocial Factors Impeding Progress Towards Medical Plan of Care Encounter Details Date Type Department Care Team (Latest Contact Info) Description 06/11/2013 6:59 EDT - 06/14/2013 13:45 EDT Hospital Encounter [facility] [address], [place] [id number] Antoinette Ambrose MD [address] [place] [address] Malignant neoplasm of corpus uteri, [...] Bala Veronica RN documented in this encounter Discharge Summaries * Eliza Dennison [...] her current regimen. She was discharged on [place] with a few oxycodone, and her Mobic [...] Automated 05/06/2013 SEDRATE 12 03/05/2012 Home Health [id number] Encounter: I certify that this patient is under my care and that I, or a Medicare authorized non-physician provider (SENIOR SQL SERVER DBA or PA) working with me, had a [id number] encounter with this patient on 06/14/13 that wasin whole or in part related to the reason the patient needs home health care. The findings of this encounter indicate that the patient requires fci or therapist services for the reasons listed below. USP services: - are required to train the [...] Summary Completed: yes CC: Keshawn Mejia MD Cosigned by Antoinette Ambrose MD at 06/16/2013 10:16 EDT documented in this encounter Discharge Instructions * [...] make an appointment with the nurse at [facility] [place] to have your hudson removed on Monday [...] bowel syndrome),GERD (gastroesophageal reflux disease) Instill 1 Points into both nostrils daily. 1 Bottle 5 3 lubiprostone (AMITIZA) 24 mcg capsule Take 24 mcg by mouth as needed. 0 MULTIVITAMINS (MULTIVITAMIN ORAL) Take 1 Tab by mouth daily. acetaminophen (TYLENOL) 325 mg tablet Take 2 Tabs by mouth every 6 hours as needed for Pain. 3 03/17/20 14 CLARITIN 10 mg tablet TAKE ONE TABLET BY MOUTH EVERY DAY 90 Each 1 3 08/19/20 13 duloxetine (CYMBALTA) 60 mg capsuleIndications: Myalgia and myositis Take 1 Cap by mouth daily. 30 Cap 11 2 10/15/20 13 enoxaparin (LOVENOX) 60 mg/0.6 mL injectionIndication s:Hypercoagulable state (HCC-CMS) Inject 60 mg into the skin daily. START 06/12/13 30 Syringe 0 3 09/13/20 13 ferrous gluconate (FERGON) 324 mg (38 mg iron) tablet Take 1 Tab by mouth 2 times daily with breakfast and dinner. 60 Tab 2 3 07/12/20 13 HYDROcodone-acetami nophen (NORCO) 10-325 mg per tablet Take 1 Tab by mouth every 6 hours as needed for Pain. 30 Tab 0 3 07/12/20 13 ketoconazole (NIZORAL) 2 % creamIndications:Ra sh Apply topically daily. Apply to affect area(s) as directed. 1 Tube 1 0 04/18/20 21 lovastatin (MEVACOR) 10 mg tabletIndications:H yperlipidemia,Asthm a,Need for Tdap vaccination,Abdomin al discomfort,IBS (irritable bowel syndrome),GERD (gastroesophageal reflux disease) Take 1 Tab by mouth daily. 90 Tab 4 2 07/12/20 13 meloxicam (MOBIC) 7.5 mg tablet Take 1 Tab by mouth daily. 30 Tab 2 3 07/04/20 13 metoprolol (LOPRESSOR) 25 mg tabletIndications:H ypertension Take 1 Tab by mouth 2 times daily. 180 Tab 4 3 09/24/20 18 omeprazole (PRILOSEC) 20 mg capsuleIndications: GERD (gastroesophageal reflux disease),Cough Take 1 Cap by mouth 2 times daily. 60 Cap 5 3 12/20/19 14 ondansetron (ZOFRAN-ODT) 4 mg disintegrating tablet Take 1 Tab by mouth every 6 hours as needed for Nausea. 12 Tab 0 3 09/24/20 18 oxyCODONE (ROXICODONE) 5 mg immediate release tablet Take 1-2 Tabs by mouth every 3 hours as needed for Pain. 20 Tab 0 3 07/12/20 13 polyethylene glycol (GLYCOLAX) 17 gram/dose powderIndications:C onstipation Take 17 g by mouth daily. 1 Bottle 3 3 09/13/20 13 traZODone (DESYREL) 100 mg tablet TAKE ONE TO TWO TABLETS BY MOUTH AT BEDTIME NEEDED FOR SLEEP 56 Tab 1 3 09/13/20 13 zafirlukast (ACCOLATE) 20 mg tablet Take 1 Tab by mouth 2 times daily. 180 Tab 5 3 04/18/20 21 documented as of this encounter Ordered Prescriptions Prescription Sig Dispense Quantity Refills Last Filled Start Date End Date docusate sodium (COLACE) 100 mg capsule Take 1 Cap by mouth 2 times daily as needed for Constipation. 06/14/2013 ferrous gluconate (FERGON) 324 mg (38 mg iron) tablet Take 1 Tab by mouth 2 times daily with breakfast and dinner. 60 Tab 2 06/14/2013 3 ondansetron (ZOFRAN-ODT) 4 mg disintegrating tablet Take 1 Tab by mouth every 6 hours as needed for Nausea. 12 Tab 0 06/14/2013 8 HYDROcodone-acetamin ophen (NORCO) 10-325 mg per tablet Take 1 Tab by mouth every 6 hours as needed for Pain. 30 Tab 0 06/14/2013 3 oxyCODONE (ROXICODONE) 5 mg immediate release tablet Take 1-2 Tabs by mouth every 3 hours as needed for Pain. 20 Tab 0 06/14/2013 3 ferrous gluconate (FERGON) 324 mg (38 mg iron) tablet Take 1 Tab by mouth 2 times daily with breakfast and dinner. 40 Tab 2 06/14/2013 3 acetaminophen (TYLENOL) 325 mg tablet Take 2 Tabs by mouth every 6 hours as needed for Pain. 06/14/2013 4 ondansetron (ZOFRAN-ODT) 4 mg disintegrating tablet Take 1 Tab by mouth every 6 hours as needed for Nausea. 12 Tab 0 06/14/2013 3 oxyCODONE (ROXICODONE) 5 mg immediate release tablet Take 1-2 Tabs by mouth every 3 hours as needed for Pain. 40 Tab 0 06/14/2013 3 documented in this encounter Discharge Disposition Disposition Code Departure Means Destination Home or Self Care documented in this encounter Progress Notes * Lesli Garcia V - 06/14/2013 1526 EDT Erika vss afebrile, up and ambulating denies SOB. Up and voiding /s difficulty. SARAHI goodrich. Pt d/c reviewed d/c instructions and had [...] to have decreased stressful d/c. * Ranjit Maynard, PT - 06/14/2013 1343 EDT Rehabilitation Therap[facility] Physical Therapy Initial Evaluation/Discontinue Note Date of [...] Salpingo- Oophorect The patient lives at [address] [place] [address] Home environment Lives: Alone Caregiver Support: Part-time [...] right ??? Joint replacement 04/15/2010 Right TKR ([place]) ??? Colonoscopy 2011 Medications: Medications reviewed Arousal, [...] impacting her functional mobility and gait s/p [facility] Physical Therapy Prognosis: patient is appropriate for [...] other consults recommended at this time Pager: [phone] RANJIT MAYNARD PT 06/14/2013 13:43 * Ranjit Maynard PT - 06/14/2013 7107 EDT [facility] Physical Therapy Contact Note Date of Service: 06/14/2013 PT referral received. Chart reviewed. Patient in cleared for discharge to home, no equipment needs or PT follow up needed. Full note to follow. RANJIT MAYNARD PT 06/14/2013 13:27 * Chele Wing RN - 06/14/2013 1341 EDT Case Management DC Note: Contacted pt's friend Jeannette who state she is not able to assist pt or give her a ride home. She states she will check in on her this weekend. Contacted son Barney ([phone])who states he can give pt ride home if prior to 1500. Awaiting PT eval. Requested priority for d/c PT eval. Discussed with Dr. Dennison. Planned d/c for 1400 pending functional clearance. Notified son. VNA nursing and social work please. 1330 Pt cleared by PT for d/c home today. Conor PT states she notified resident and nursing. Chele Wing RN, BSN, pgr [phone] * Abisai Cervantes MD - [...] DAILY ??? fluticasone (FLONASE) nasal spray 1 Points nasal - both DAILY ??? lovastatin (MEVACOR) [...] of 20.2. S/p transfusion of 2U pRBC /, with appropriate rise in Hct (20.2 -> [...] plan. * Antoinette Ambrose MD - 06/13/2013 7310 EDT Appreciate acute pain service input. Erika [...] MD * Chele Wing RN - 06/13/2013 1116 EDT Case Management Update:Erika requesting to speak with pt advocacy. Message left for Denisha in pt advocacy. Pt continues to state she has no support in the home. Discussed ride home and transportation for dr appointments and groceries. States Jeannette could provide this. Left message for Jeannette @ [phone]. Attempted to call son Barney, however both numbers listed are inaccurate. [facility]. Chele Wing RN, BSN, CM pgr [phone] * Cathryn Zamarripa RN - 06/13/2013 0157 EDT Pt needed to use the bathroom [...] now up and voiding. Report given to oncoming RN @ [phone]. * Antoinette Ambrose MD - 06/13/2013 0533 EDT Gynecology Progress Note Admit Date: 06/11/2013 Hospital Day: LOS: 2 days Date of Service: 06/13/2013 POD: 2 Chief Complaint: S/p BRITTANY/BSO, cysto, washings for grade I endometrial adenocarcinoma 24 Hour Events: Advanced to regular diet. Received two units pRBC, with appropriate rise in Hct. Desaturation down to 89% overnight, which responded to Albuterol. Kam D/C'ed per patient request. Subjective: Doing well. Feeling [...] DAILY ??? fluticasone (FLONASE) nasal spray 1 Points nasal - both DAILY ??? lovastatin (MEVACOR) [...] insulin aspart (NOVOLOG FLEXPEN) injection subcutaneous TID Objective/Physical Exam: VS: Patient Vitals for the [...] Well controlled on current regimen. Transitioned from THREAT MONITORING ANALYST to PO pain meds yesterday, tolerating well. [...] PRN for nausea. Colace forbowel regimen. : Kam D/C'ed overnight per patient's request. F/E/N: NS [...] is moving out at unspecified date in [facility]. Multi level with full bath on 1st floor. Pt state she cannot sleep on 1st floor, must be able to navigate steps to bedroom. Functional Status (psychosocial and physical): Independent with cane for amb. Does not work on disability X 2 years secondary to back pain. Social Supports: Son Barney lives in [place]. Pt declined allowing CM to contact Barney. Friend Jeannette carrillo, however works horse race timer. Existing Community Resources: None active Advanced Directives/DPOA: Not on file Cultural/Spiritual Needs: declines Insurance/Financial Needs: Medicare, Medicaid. Fills rx @ [facility] in [place]. Transportation Needs: TBD Patient Goals: Return home Assessment and Discharge Care Plan: Unable to complete assessment for social supports d/t removal of epidural THREAT MONITORING ANALYST schedule. Concerns regarding pt returning home alone, with steps to navigate. Pt has baseline physical impairments that are exacerbated by the recent procedure. Would benefit from PT evals while hospitalized. Agreeable to VNA. Referred to Gianfranco HERNDONA via liaison Мария Callejas. Will arrange further care as appropriate. Chele Wing RN, BSN, pgr [phone] * Antoinette Ambrose MD - 06/12/2013 3012 EDT Attending update: Events of last 12 hours reviewed. Chest pain improved this morning. She feels like it is the pain associated with asthma. No signs ofMI. Pain mostly controlled by THREAT MONITORING ANALYST. Feels hungry. No flatus yet. Mild tachycardia this morning with low to borderline urine output. Impression: 1. Acute blood loss anemia with no sign of ongoing blood loss. With tachycardia and decreased urine output would transfuse 2 units pRBC. Discussed with patient who agrees. Risks discussed. 2. Chest pain, likely respiratory related. Will give albuterol neb and outpt MDIs. Continue to r/o VA with troponin levels. Continue beta yara. 3. Pain management. Convert to oral meds this morning. 4. GI Advance diet. 5. VTE risk Continue lovenox and ambulate today. 6. DM Continue SSI Antoinette Ambrose MD * Antoinette Ambrose MD - 06/12/2013 0616 EDT Gynecology Progress Note Admit Date: 06/11/2013 [...] abdominal pain is controlled with the morphine THREAT MONITORING ANALYST when I remember to hit it. She [...] DAILY ??? fluticasone (FLONASE) nasal spray 1 Points nasal - both DAILY ??? lovastatin (MEVACOR) [...] oral Q4H ??? morphine 2 mg/ml (DURAMORPH) THREAT MONITORING ANALYST, 30 ml syringe - LATEX SAFE intravenous THREAT MONITORING ANALYST ??? morphine 2 mg/ml (DURAMORPH) syringe, 30 [...] hours 48/44 morphine doses demanded/delivered since starting THREAT MONITORING ANALYST post-op yesterday Exam: Gen: NAD CV: RRR [...] controlled on current regimen. Will transition from THREAT MONITORING ANALYST to PO meds today as patient is [...] MD,06/12/2013,12:37 * Denisha Topete MD - 06/12/2013 0410 EDT Pt seen with Evelyn Sales MD [...] is a preliminary report dictated by residential support worker Sharif Garzon MD. One hour ago: S: [...] c/d/i Ext with venodynes, NT, 1+ bilateral SENIOR SQL SERVER DBA edema A/P: S/p BRITTANY POD #1 with EBL 2L. Chest pain may be secondary to mild VA, we will cycle cardiac enzymes (1st set [...] in abdomen is stable, mostly controlled with THREAT MONITORING ANALYST. Has had some very mild nausea since [...] no acute ST changes. Reviewed with MICU . Lab Results Component Value Date WBC 14.79* [...] exacerbation, demand ischemia from acuteblood loss. Continue THREAT MONITORING ANALYST. Exam, vitals and hct do not support [...] 4:54 * Eliza Dennison MD - 06/11/2013 1688 EDT Post-op Check S: Overall, doing well, but pain is moderate. However, patient has been sleeping a lot and therefore, not pressing the THREAT MONITORING ANALYST button much. She is also worried that [...] Ext: WWP, 1+ PE bilat A/P: Erika uHsain is a 53 y.o. F POD#0 s/p ex-lap BRITTANY/BSO, pelvic washings, and cystoscopy for grade I endometrial adenocarcinoma. Pt recovering well, AVSS and adequate UOP. PAIN: Hx of chronic back pain. Pain currently moderate with the morphine THREAT MONITORING ANALYST. Encouraged patient topress button when uncomfortable. NEURO/PSYCH: [...] on a bed and positioned left side. criminalist use reviewed and encouraged. friend continuesat bedside [...] appreciated. This patient's pathology was discussed with Spinning Lathe Operator/Onc who does not recommend pelvic LND. Erika [...] washings tomorrow. Antoinette Ambrose MD * Vera Fonseca RN - 06/04/2013 1126 EDT Erika Husain [...] documented in this encounter H&P Notes * ANGLE ROLL OPERATOR, KARIE 2 - 06/19/2013 1421 EDT * Raleigh [...] documented below RALEIGH GRIGGS MD 06/11/2013 8:16 Cosigned by Antoinette Ambrose MD at 06/11/2013 9:08 EDT documented in this encounter Procedure Notes * ANGLE ROLL OPERATOR, SCAN 2 - 06/20/2013 0911 EDTAssociated Order(s): ECG REPORT - SCANNED * ANGLE ROLL OPERATOR, SCAN 2 - 06/19/2013 1421 EDTAssociated Order(s): ECG REPORT - SCANNED * ANGLE ROLL OPERATOR, SCAN 2 - 06/19/2013 1421 EDTAssociated Order(s): ECG REPORT - SCANNED * ANGLE ROLL OPERATOR, SCAN 2 - 06/19/2013 1421 EDTAssociated Order(s): TRANSFUSION RECORD - SCANNED * ANGLE ROLL OPERATOR, SCAN 2 - 06/10/2013 1314 EDTAssociated Order(s): ORDERS - SCANNED documented in this encounter Consult Notes * Catherine Gmaing - 06/13/2013 1403 EDT Anesthesia Pain Service Inpatient Consult Name: Erika Husain :: Age: 53 y.o. :: , :: Location: [facility] Surgical Floor Requesting physician: Antoinette Ambrose MD Anesthesiology attending: Mekhi Reason for consult: acute on chronic pain Cc: HPI: Patient is a 53 y.o. year old female with a long history of using Vicodin 10mg 4-6x daily for her chronic lower back pain. She is POD #2 s/p BRITTANY BSO. APS is asked by the director of finance team to review her pain management to [...] right ??? Joint replacement 04/15/2010 Right TKR ([place]) ??? Colonoscopy 2011 Home Medications No current [...] DAILY ??? fluticasone (FLONASE) nasal spray 1 Points nasal - both DAILY ??? lovastatin (MEVACOR) [...] documented in this encounter Nursing Notes * ANGLE ROLL OPERATOR, SCAN 2 - 06/19/2013 1421 EDT documented in this encounter OR Notes * OR PreOp - ANGLE ROLL OPERATOR, SCAN 2 - 06/19/2013 1421 EDT * OR Surgeon - Antoinette Ambrose MD - 06/12/201355 EDT OPERATIVE REPORT SERVICE DATE: 06/11/2013 SURGEON: Antoinette Ambrose MD CONTRACT ADMINISTRATOR: Raleigh Griggs MD and Leatha Mckenna [facility] PREOPERATIVE DIAGNOSIS: Grade 1 endometrial adenocarcinoma. [...] cuff was closed with 0 Vicryl interrupted [id number] stitches. Hemostasis was then noted at the [...] AM / Raleigh Griggs MD rn Confirmation: [id number] Dictation ID: [id number] cc: Raleigh Griggs MD [facility] Antoinette Ambrose MD * Anesthesia Procedure Notes - ANGLE ROLL OPERATOR, SCAN 2 - 06/11/2013 1430 EDT * Anesthesia Procedure Notes - ANGLE ROLL OPERATOR, SCAN 2 - 06/11/2013 1403 EDT * OR PreOp - ANGLE ROLL OPERATOR, SCAN 2 - 06/11/2013 1300 EDT * Anesthesia Preprocedure Evaluation - ANGLE ROLL OPERATOR, SCAN 2 - 06/11/2013 0917 EDT documented in this encounter Miscellaneous Notes * Scanned Note-Null - ANGLE ROLL OPERATOR, SCAN 2 - 06/19/2013 1421 EDT * Scanned Note-Null - ANGLE ROLL OPERATOR, SCAN 2 - 06/19/2013 1421 EDT * [...] care to incoming RN. * Miscellaneous - ANGLE ROLL OPERATOR, SCAN 2 - 06/13/2013 0818 EDT * Plan of Care - Cathryn Zamarripa RN - 06/13/2013 0550 EDT Data: Vital signs [...] bed, no further c/o light headedness . THREAT MONITORING ANALYST d/c this am. Is on PO meds. [...] Care - Delia Maynard RN - 06/12/2013 0529 EDT Pt has THREAT MONITORING ANALYST. Has had many c/o ie: heaviness in [...] Care - Delia Maynard RN - 06/12/2013 0529 EDT Problem: PAIN Goal: Patient???s pain/discomfort is manageable/tolerable Intervention: Assess pain level Assess on admission, prior to pain medication, within 2 hrs of administering pain medication, prn and at discharge. Pt's pain level remains about 6-7. Pt has criminalist which she needs reminding to use. Also taking tylenolfor a head ache * Plan of Care - Karo Bush RN - 06/11/2013 0966 EDT Pt s/p complete abd hyst under [...] has LR running at 150cc/hr, and a THREAT MONITORING ANALYST pump, she needs to be reminded to push the button. Pt has multiple allergies and food sensitivities. Pt has a close friend, Jeannette, who is her pets salesperson. If the patient is upset tonight and needssupport or someone to talk with, Jeannette left her cell number (in sticky note on face page). * Plan of Care - Karo Bush RN - 06/11/2013 6671 EDT Problem: PRESSURE ULCER PREVENTION Goal: Skin [...] rating were reviewed: Heart Rate: 89 BPM (06/11/131714), BP: 107/70 mmHg (06/11/13 1700), Resp: 15 (06/11/131714), SpO2: 100 % (06/11/131714),Numeric Pain Level (Scale 1-10): 8 Adult Nonverbal [...] note Date: 06/11/2013 Attending: Antoinette Ambrose MD Straightener Gun [employer]: Raleigh Griggs MD; Leatha Mckenna MD Pre-op [...] for more details * Scanned Note-Null - ANGLE ROLL OPERATOR, SCAN 2 - 06/11/2013 0704 EDT * Scanned Note-Null - ANGLE ROLL OPERATOR, SCAN 2 - 06/11/2013 0704 EDT * Scanned Note-Null - ANGLE ROLL OPERATOR, SCAN 2 - 06/11/2013 0704 EDT documented in this encounter Plan of Treatment Scheduled Referrals Name Type Priority Associated Diagnoses Orde r Schedule FROM IP - CONSULT HOME HEALTH SERVICES Outpatient Referral Routine Asthma Chronic low back pain Malignant neoplasm of corpus uteri, except isthmus ([facility]) Ordered: 06/14/2013 documented as of this encounter [...] EDT Narrative 06/20/2013 12:42 EDT Procedure Note ANGLE ROLL OPERATOR, SCAN 2 - 06/20/2013 9:11 EDT us Scan 2 Film Laboratory Technician PROCEDURE/MINOR SURGICAL OR DERABLES Final Result * ECG REPORT - SCANNED (06/19/2013 14:21 EDT) 06/19/2013 14:2 1 EDT Narrative 06/19/2013 14:47 EDT Procedure Note ANGLE ROLL OPERATOR, SCAN 2 - 06/19/2013 14:21 EDT us Scan 2 Film Laboratory Technician PROCEDURE/MINOR SURGICAL OR DERABLES Final Result * ECG REPORT - SCANNED (06/19/2013 14:21 EDT) 06/19/2013 14:2 1 EDT Narrative 06/19/2013 14:47 EDT Procedure Note ANGLE ROLL OPERATOR, SCAN 2 - 06/19/2013 14:21 EDT us Scan 2 Film Laboratory Technician PROCEDURE/MINOR SURGICAL OR DERABLES Final Result * TRANSFUSION RECORD - SCANNED (06/19/2013 14:21 EDT) 06/19/2013 14:2 1 EDT Narrative 06/19/2013 14:47 EDT Procedure Note ANGLE ROLL OPERATOR, SCAN 2 - 06/19/2013 14:21 EDT us Scan 2 Film Laboratory Technician LAB INFO SERVICE AND SUPPOR T & PHONE RESULT Final Result * (ABNORMAL) GLUCOSE, GLUCOMETER (06/14/2013 6:58 EDT) Glucose, Fingerstick 117(H) 70 - 100 mg/dl [facility] Counter Tacker ID [id number] [facility] Comment:Test Performed by [facility] [place] Services 06/14/2013 6:58 EDT 06/14/2013 7:02 EDT us Antoinette Ambrose MD CHEMISTRY & BLOOD GAS ORDERABLE S Final Result [facility] [address] [place] [address] * CALCIUM (06/14/2013 6:31 EDT) Calcium 8.5 8.5 - 10.5 mg/dl [facility] Calculated Calcium 10.1 8.5 - 10.5 mg/dl [facility] Blood specimen (specimen) 06/14/2013 6:31 EDT 06/14/2013 7:25 EDT us Raleigh Griggs MD CHEMISTRY & BLOOD GAS ORDERAB LES Final Result Performing Organization Address City/[facility]/ZIP Co de Phone Number [facility] [address] [place] [address] * (ABNORMAL) PHOSPHORUS (06/14/2013 6:31 EDT) [facility] Phosphorus 2.4(L) 2.5 - 4.5 mg/dl [facility] Blood specimen (specimen) 06/14/2013 6:31 EDT 06/14/2013 7:25 EDT us [place] Griggs MD CHEMISTRY & BLOOD GAS ORDERAB LES Final Result Performing Organization Address [facility] Co de Phone Number [facility] [address] [place] [address] * MAGNESIUM (06/14/2013 6:31 EDT) [facility] Magnesium 2.0 1.7 - 2.8 mg/dl [facility] Blood specimen (specimen) 06/14/2013 6:31 EDT 06/14/2013 7:25 EDT us Raleigh Griggs MD CHEMISTRY & BLOOD GAS ORDERAB LES Final Result Performing Organization Address [facility] Co de Phone Number [facility] [address] [place] [address] * CREATININE (06/14/2013 6:31 EDT) [facility] Creatinine 0.57 0.52 - 1.04 mg/dl [facility] GFR, Calculated >60 >60 ml/min/1.7 3m2 [facility] Blood specimen (specimen) 06/14/2013 6:31 EDT 06/14/2013 7:25 EDT us Raleigh Griggs MD CHEMISTRY & BLOOD GAS ORDERAB LES Final Result Performing Organization Address City/[facility] Co de Phone Number [facility] [address] [place] [address] * BUN (06/14/2013 6:31 EDT) [facility] BUN 10 10 - 26 mg/dl [facility] Blood specimen (specimen) 06/14/2013 6:31 EDT 06/14/2013 7:25 EDT Raleigh Griggs MD CHEMISTRY & BLOOD GAS ORDERAB LES Final Result Performing Organization Address City/[facility] Co de Phone Number [facility] [address] [place] [address] * ELECTROLYTES (06/14/2013 6:31 EDT) Pathologist [facility] Sodium 136 136 - 145 mEq/L [facility] Potassium 3.6 3.5 - 5.0 mEq/L [facility] Chloride 100 96 - 110 mEq/L [facility] CO2 30 24 - 32 mEq/L [facility] Blood specimen (specimen) 06/14/2013 6:31 EDT 06/14/2013 7:25 EDT us Raleigh Griggs MD CHEMISTRY & BLOOD GAS ORDERAB LES Final Result Performing Organization Address [facility] de Phone Number [facility] [address] [place] [address] * (ABNORMAL) HEMAGRAM (06/14/2013 6:31 EDT) Pathologist [facility] WBC 7.88 4.0 - 12.4 K/cmm [facility] RBC 2.74(L) 3.86 - 5.04 M/cmm [facility] Hemoglobin 8.0(L) 11.6 - 15.2 gm/dl [facility] HCT 23.5(L) 34.9 - 44.4 % [...] EDT Raleigh Griggs MD HEMATOLOGY & PF4 ORDERABLES F inal Result Performing Organization Address [facility] de Phone Number [facility] [address] [place] [address] * (ABNORMAL) GLUCOSE, GLUCOMETER (06/13/2013 22:33 EDT) Glucose, Fingerstick 138(H) 70 - 100 mg/dl [facility] Counter Tacker ID [id number] [facility] Comment:Test Performed by [facility] [facility] 06/13/2013 22:3 3 EDT 06/14/2013 0:23 EDT Antoinette Ambrose MD CHEMISTRY & BLOOD GAS ORDERABLE S Final Result Performing Organization Address [facility] Phone Number [facility] [address] [place] [address] * (ABNORMAL) GLUCOSE, GLUCOMETER (06/13/2013 18:24 EDT) Glucose, Fingerstick 112(H) 70 - 100 mg/dl [facility] Counter Tacker ID [id number] [facility] Comment:Test Performed by [facility] [facility] 06/13/2013 18:2 4 EDT 06/13/2013 18:28 EDT Antoinette Ambrose MD CHEMISTRY & BLOOD GAS ORDERABLE S Final Result Performing Organization Address [facility] de Phone Number [facility] [address] [place] [address] * (ABNORMAL) HEMAGRAM (06/13/2013 12:49 EDT) WBC 8.19 4.0 - 12.4 K/cmm [facility] RBC 2.61(L) 3.86 - 5.04 M/cmm [facility] Hemoglobin 7.7(L) 11.6 - 15.2 gm/dl [facility] HCT 22.3(L) 34.9 - 44.4 % [facility] MCV 86 81 - 98 fl [facility] MCH 29.4 26.7 - 33.3 pg [facility] MCHC 34.3 32.1 - 35.9 gm/dl [facility] PLT 169 141 - 320 K/cmm [facility] RDW-CV 17.1(H) 11.7 - 14.6 % [facility] Blood specimen (specimen) 06/13/2013 12:49 EDT 06/13/2013 13:13 EDT Leatha Mckenna MD HEMATOLOGY & PF4 ORDERABLES Jessica l Result Performing Organization Address [facility] Co de Phone Number [facility] [address] [place] [address] * (ABNORMAL) GLUCOSE, GLUCOMETER (06/13/2013 12:27 EDT) Glucose, Fingerstick 125(H) 70 - 100 mg/dl [facility] Counter Tacker ID [id number] [facility] Comment:Test Performed by [facility] [facility] 06/13/2013 12:2 7 EDT 06/13/2013 12:30 EDT Antoinette Ambrose MD CHEMISTRY & BLOOD GAS ORDERABLE S Final Result Performing Organization Address [facility] Co de Phone Number [facility] [address] [place] [address] * (ABNORMAL) GLUCOSE, GLUCOMETER (06/13/2013 8:22 EDT) Glucose, Fingerstick 124(H) 70 - 100 mg/dl [facility] Counter Tacker ID [id number] [facility] Comment:Test Performed by [facility] [facility] 06/13/2013 8:22 EDT 06/13/2013 8:27 EDT Antoinette Ambrose MD CHEMISTRY & BLOOD GAS ORDERABLE S Final Result Performing Organization Address [facility] Co de Phone Number [facility] [address] [place] [address] * (ABNORMAL) CALCIUM (06/13/2013 7:22 EDT) Calcium 8.1(L) 8.5 - 10.5 mg/dl [facility] Calculated Calcium 9.9 8.5 - 10.5 mg/dl [facility] Blood specimen (specimen) 06/13/2013 7:22 EDT 06/13/2013 7:46 EDT us Raleigh Griggs MD CHEMISTRY & BLOOD GAS ORDERAB LES Final Result Performing Organization Address City/[facility]/ZIP Co de Phone Number [facility] [address] [place] [address] * (ABNORMAL) PHOSPHORUS (06/13/2013 7:22 EDT) Pathologist [facility] Phosphorus 2.3(L) 2.5 - 4.5 mg/dl [facility] Blood specimen (specimen) 06/13/2013 7:22 EDT 06/13/2013 7:46 EDT us Raleigh Griggs MD CHEMISTRY & BLOOD GAS ORDERAB LES Final Result Performing Organization Address [facility] Co de Phone Number [facility] [address] [place] [address] * MAGNESIUM (06/13/2013 7:22 EDT) Magnesium 2.0 1.7 - 2.8 mg/dl [facility] specimen (specimen) 06/13/2013 7:22 EDT 06/13/2013 7:46 EDT us Raleigh Griggs MD CHEMISTRY & BLOOD GAS ORDERAB LES Final Result Performing Organization Address [facility] Co de Phone Number [facility] [address] [place] [address] * CREATININE (06/13/2013 7:22 EDT) Creatinine 0.64 0.52 - 1.04 mg/dl [facility] GFR, Calculated >60 >60 ml/min/1.7 3m2 [facility] Blood specimen (specimen) 06/13/2013 7:22 EDT 06/13/2013 7:46 EDT us Raleigh Griggs MD CHEMISTRY & BLOOD GAS ORDERAB LES Final Result Performing Organization Address [facility] de Phone Number [facility] [address] [place] [address] * BUN (06/13/2013 7:22 EDT) BUN 15 10 - 26 mg/dl [facility] Blood specimen (specimen) 06/13/2013 7:22 EDT 06/13/2013 7:46 EDT us Raleigh Griggs MD CHEMISTRY & BLOOD GAS ORDERAB LES Final Result Performing Organization Address [facility] de Phone Number [facility] [address] [place] [address] * (ABNORMAL) ELECTROLYTES (06/13/2013 7:22 EDT) Sodium 133(L) 136 - 145 mEq/L [facility] Potassium 4.3 3.5 - 5.0 mEq/L [facility] Chloride 99 96 - 110 mEq/L [facility] CO2 30 24 - 32 mEq/L [facility] Blood specimen (specimen) 06/13/2013 7:22 EDT 06/13/2013 7:46 EDT us Raleigh Griggs MD CHEMISTRY & BLOOD GAS ORDERAB LES Final Result Performing Organization Address [facility] de Phone Number [facility] [address] [place] [address] * (ABNORMAL) HEMAGRAM (06/13/2013 7:22 EDT) WBC 9.71 4.0 - 12.4 K/cmm [facility] RBC 2.61(L) 3.86 - 5.04 M/cmm [facility] Hemoglobin 7.8(L) 11.6 - 15.2 gm/dl [facility] HCT 22.1(L) 34.9 - 44.4 % [facility] MCV 85 81 - 98 fl [facility] MCH 29.8 26.7 - 33.3 pg [facility] MCHC 35.2 32.1 - 35.9 gm/dl [facility] PLT 167 141 - 320 K/cmm [facility] RDW-CV 17.7(H) 11.7 - 14.6 % [facility] Blood specimen (specimen) 06/13/2013 7:22 EDT 06/13/2013 7:46 EDT Raleigh Griggs MD HEMATOLOGY & PF4 ORDERABLES F inal Result Performing Organization Address [facility] Co de Phone Number [facility] [address] [place] [address] * (ABNORMAL) GLUCOSE, GLUCOMETER (06/12/2013 22:11 EDT) Glucose, Fingerstick 117(H) 70 - 100 mg/dl [facility] Counter Tacker ID [id number] [facility] Comment:Test Performed by [facility] ([place], [place]) Services 06/12/2013 22:1 1 EDT 06/12/2013 22:17 EDT Antoinette Ambrose MD CHEMISTRY & BLOOD GAS ORDERABLE S Final Result Performing Organization Address City/[facility]/ZIP Co de Phone Number [facility] [address] [place] [address] * (ABNORMAL) HEMAGRAM (06/12/2013 20:48 EDT) WBC 10.34 4.0 - 12.4 K/cmm [facility] RBC 2.94(L) 3.86 - 5.04 M/cmm [facility] Hemoglobin 8.7(L) 11.6 - 15.2 gm/dl [facility] HCT 25.1(L) 34.9 - 44.4 % [facility] MCV 86 81 - 98 fl [facility] MCH 29.5 26.7 - 33.3 pg [facility] MCHC 34.6 32.1 - 35.9 gm/dl [facility] PLT 201 141 - 320 K/cmm [facility] RDW-CV 18.2(H) 11.7 - 14.6 % [facility] Blood specimen (specimen) 06/12/2013 20:48 EDT 06/12/2013 21:03 EDT Raleigh Griggs MD HEMATOLOGY & PF4 ORDERABLES F inal Result Performing Organization Address City/[facility]/ZIP Co de Phone Number [facility] [address] [place] [address] * TROPONIN I (06/12/2013 17:19 EDT) Troponin I (ng/mL) <0.034 <0.034 ng/ml [facility] Blood specimen (specimen) 06/12/2013 17:19 EDT 06/12/2013 17:56 EDT Matilde Sales MD CHEMISTRY & BLOOD GAS ORDERABLE S Final Result Performing Organization Address [facility] Co de Phone Number [facility] [address] [place] [address] * (ABNORMAL) GLUCOSE, GLUCOMETER (06/12/2013 17:18 EDT) Glucose, Fingerstick 146(H) 70 - 100 mg/dl [facility] Counter Tacker ID [id number] [facility] Comment:Test Performed by [facility] ([place], [place]) Services 06/12/2013 17:1 8 EDT 06/12/2013 17:20 EDT us Antoinette Ambrose MD CHEMISTRY & BLOOD GAS ORDERABLE S Final Result Performing Organization Address [facility]/ZIP Co de Phone Number [facility] [address] [place] [address] * (ABNORMAL) GLUCOSE, GLUCOMETER (06/12/2013 12:42 EDT) Glucose, Fingerstick 147(H) 70 - 100 mg/dl [facility] Counter Tacker ID [id number] [facility] Comment:Test Performed by rsing Services 06/12/2013 12:4 2 EDT 06/12/2013 12:45 EDT us Antoinette Ambrose MD CHEMISTRY & BLOOD GAS ORDERABLE S Final Result [facility] [address] [place] [address] * INPATIENT ADD-ON (06/12/2013 8:15 EDT) Tests to be added TROPONIN [facility] Number for problems [id number] [facility] Accession number [id number] [facility] 06/12/2013 8:15 EDT 06/12/2013 8:27 EDT us Raleigh Griggs MD HEMATOLOGY & PF4 ORDERABLES F inal Result Performing Organization Address [facility] Co de Phone Number [facility] [address] [place] [address] * (ABNORMAL) GLUCOSE, GLUCOMETER (06/12/2013 8:00 EDT) Glucose, Fingerstick 169(H) 70 - 100 mg/dl [facility] Counter Tacker ID [id number] [facility] Comment[facility] 06/12/2013 8:00 EDT 06/12/2013 8:09 EDT Antoinette Ambrose MD CHEMISTRY & BLOOD GAS ORDERABLE S Final Result Performing Organization Address [facility] Co de Phone Number [facility] [address] [place] [address] * PREPARE RED BLOOD CELLS (06/12/2013 7:22 EDT) Product Code E0382 -3 RED BLOOD CELLS, Leukocytes Reduced [facility] Donor Number [id number] [facility] Unit ABO AB [facility] Rh POS [facility] Unit Status Transfuse [facility] 06/12/2013 7:22 EDT us Rajendra Andrews MD BLOOD BANK ORDERABLES Final Result Performing Organization Address City/[facility] Co de Phone Number [facility] [address] [place] [address] * PREPARE RED BLOOD CELLS (06/12/2013 7:22 EDT) [facility] Product Code E0382 -3 RED BLOOD CELLS, Leukocytes Reduced [facility] Donor Number [id number] [facility] Unit ABO AB [facility] Unit Rh POS [facility] Unit Status Transfuse [facility] Blood specimen (specimen) 06/12/2013 7:22 EDT us Raleigh Griggs MD BLOOD BANK ORDERABLES Final R esult Performing Organization Address [facility]/ZIP Co de Phone Number [facility] [address] [place] [address] * TROPONIN I (06/12/2013 7:13 EDT) [facility] Troponin I (ng/mL) <0.034 <0.034 ng/ml [facility] 06/12/2013 7:13 EDT 06/12/2013 7:32 EDT us Raleigh Griggs MD CHEMISTRY & BLOOD GAS ORDERAB LES Final Result Performing Organization Address [facility] Co de Phone Number [facility] [address] [place] [address] * (ABNORMAL) CK MB WITH TOTAL CK (06/12/2013 7:13 EDT) [facility] CK 414(H) 30 - 135 U/L [facility] MB 2.16 <2.95 ng/ml [facility] Blood specimen (specimen) 06/12/2013 7:13 EDT 06/12/2013 7:32 EDT us Matilde Sales MD CHEMISTRY & BLOOD GAS ORDERABLE S Final Result Performing Organization Address [facility] de Phone Number [facility] [address] [place] [address] * (ABNORMAL) CALCIUM (06/12/2013 7:13 EDT) Calcium 7.9(L) 8.5 - 10.5 mg/dl [facility] Calculated Calcium 9.5 8.5 - 10.5 mg/dl [facility] Blood specimen (specimen) 06/12/2013 7:13 EDT 06/12/2013 7:32 EDT us Raleigh Griggs MD CHEMISTRY & BLOOD GAS ORDERAB LES Final Result Performing Organization Address [facility] de Phone Number [facility] [address] [place] [address] * (ABNORMAL) PHOSPHORUS (06/12/2013 7:13 EDT) Phosphorus 4.9(H) 2.5 - 4.5 mg/dl [facility] Blood specimen (specimen) 06/12/2013 7:13 EDT 06/12/2013 7:32 EDT us Raleigh Griggs MD CHEMISTRY & BLOOD GAS ORDERAB LES Final Result Performing Organization Address [facility] de Phone Number [facility] [address] [place] [address] * MAGNESIUM (06/12/2013 7:13 EDT) Magnesium 1.9 1.7 - 2.8 mg/dl [facility] Blood specimen (specimen) 06/12/2013 7:13 EDT 06/12/2013 7:32 EDT us Raleigh Griggs MD CHEMISTRY & BLOOD GAS ORDERAB LES Final Result Performing Organization Address [facility] de Phone Number [facility] [address] [place] [address] * CREATININE (06/12/2013 7:13 EDT) [facility] Creatinine 0.97 0.52 - 1.04 mg/dl [facility] GFR, Calculated >60 >60 ml/min/1.7 3m2 [facility] Blood specimen (specimen) 06/12/2013 7:13 EDT 06/12/2013 7:32 EDT us Raleigh Griggs MD CHEMISTRY & BLOOD GAS ORDERAB LES Final Result Performing Organization Address [facility] Phone Number [facility] [address] [place] [address] * (ABNORMAL) BUN (06/12/2013 7:13 EDT) [facility] BUN 29(H) 10 - 26 mg/dl [facility] Blood specimen (specimen) 06/12/2013 7:13 EDT 06/12/2013 7:32 EDT us Raleigh Griggs MD CHEMISTRY & BLOOD GAS ORDERAB LES Final Result Performing Organization Address [facility] Phone Number [facility] [address] [place] [address] * (ABNORMAL) ELECTROLYTES (06/12/2013 7:13 EDT) [facility] Sodium 132(L) 136 - 145 mEq/L [facility] Potassium 4.8 3.5 - 5.0 mEq/L [facility] Chloride 101 96 - 110 mEq/L [facility] CO2 25 24 - 32 mEq/L [facility] Blood specimen (specimen) 06/12/2013 7:13 EDT 06/12/2013 7:32 EDT us Raleigh Griggs MD CHEMISTRY & BLOOD GAS ORDERAB LES Final Result Performing Organization Address [facility]/State/ZIP Co de Phone Number [facility] [address] [place] [address] * (ABNORMAL) HEMAGRAM (06/12/2013 7:13 EDT) WBC 12.04 4.0 - 12.4 K/cmm [facility] RBC 2.23(L) 3.86 - 5.04 M/cmm [facility] Hemoglobin 6.9(LL) 11.6 - 15.2 gm/dl [facility] HCT 20.2(LL) 34.9 - 44.4 % [facility] MCV 91 81 - 98 fl [facility] MCH 30.9 26.7 - 33.3 pg [facility] MCHC 34.1 32.1 - 35.9 gm/dl [facility] PLT 239 141 - 320 K/cmm [facility] RDW-CV 12.3 11.7 - 14.6 % [facility] Blood specimen (specimen) 06/12/2013 7:13 EDT 06/12/2013 7:32 EDT us Raleigh Griggs MD HEMATOLOGY & PF4 ORDERABLES F inal Result Performing Organization Address [facility] Co de Phone Number [facility] [address] [place] [address] * INPATIENT ADD-ON (06/12/2013 3:00 EDT) Tests to be added CKMB [facility] Number for problems Not Given [facility] Accession number [id number] [facility] 06/12/2013 3:00 EDT 06/12/2013 3:04 EDT us Matilde Sales MD HEMATOLOGY & PF4 ORDERABLES Fin al Result Performing Organization Address [facility] Co de Phone Number [facility] [address] [place] [address] * PORTABLE CHEST 1 VIEW (06/12/2013 1:59 [...] above interpretation and agree with the findings. us Matilde Sales MD IMG DIAGNOSTIC IMAGING ORDERABL ES Final Result * (ABNORMAL) CK MB WITH TOTAL CK (06/12/2013 1:21 EDT) CK 398(H) 30 - 135 U/L [facility] MB 1.62 <2.95 ng/ml [facility] 06/12/2013 1:21 EDT 06/12/2013 1:30 EDT Matilde Sales MD CHEMISTRY & BLOOD GAS ORDERABLE S Final Result Performing Organization Address [facility] Co de Phone Number [facility] [address] [place] [address] * TROPONIN I (06/12/2013 1:21 EDT) Troponin I (ng/mL) <0.034 <0.034 ng/ml [facility] Blood specimen (specimen) 06/12/2013 1:21 EDT 06/12/2013 1:30 EDT Matilde Sales MD CHEMISTRY & BLOOD GAS ORDERABLE S Final Result Performing Organization Address [facility] de Phone Number [facility] [address] [place] [address] * (ABNORMAL) HEMAGRAM (06/12/2013 1:21 EDT) Pathologist [facility] WBC 14.79(H) 4.0 - 12.4 K/cmm [facility] RBC 2.57(L) 3.86 - 5.04 M/cmm [facility] Hemoglobin 7.6(L) 11.6 - 15.2 gm/dl [facility] HCT 23.3(L) 34.9 - 44.4 % [facility] MCV 91 81 - 98 fl [facility] MCH 29.7 26.7 - 33.3 pg [facility] MCHC 32.7 32.1 - 35.9 gm/dl [facility] PLT 274 141 - 320 K/cmm [facility] RDW-CV 12.1 11.7 - 14.6 % [facility] Blood specimen (specimen) 06/12/2013 1:21 EDT 06/12/2013 1:30 EDT Matilde Sales MD HEMATOLOGY & PF4 ORDERABLES Fin al Result Performing Organization Address [facility] Co de Phone Number [facility] [address] [place] [address] * EKG 12-LEAD (06/12/2013 1:11 EDT) 06/12/2013 1:11 EDT [facility] - 06/19/2013 15:04 EDT ?[facility] ? Test Date: ?2013-06-12 Pat Name: ? ERIKA HUSAIN ? Department: ?? [facility] ? Room: ? SB575 Gender: ? 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 Requested By: MATILDE SALES MD Order Number: [id number] ? Reading MD: ?? BRITNEY GASTON MD ? Measurements Intervals ?[place] ? Rate: ? 103 ?P: ?46 AK: ? 151 ?QRS: ?38 QRSD: ? 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1960 Requested By: MATILDE SALES MD Order Number: [id number] Reading MD: BRITNEY FELDMAN MD Measurements Intervals [place] Rate: 103 P: 46 AK: 151 QRS: 38 QRSD: 85 T: 39 QT: 320 QTc: 380 Interpretive Statements SINUS TACHYCARDIA LOW QRS VOLTAGE IN PRECORDIAL LEADS NONSPECIFIC T-WAVE ABNORMALITY ABNORMAL RHYTHM ECG Compared to ECG 12/14/2009 09:48:22 Sinus tachycardia now present T-wave abnormality now present Electronically Signed On 06-19-13 15:04:37 EDT by BRITNEY FELDMAN MD us Matilde Sales MD CARDIAC ECG ORDERABLES Final Re sult Performing Organization Address [facility] Co de Phone Number [facility] [address] [place] [address] * (ABNORMAL) GLUCOSE, GLUCOMETER (06/11/2013 23:45 EDT) Glucose, Fingerstick 161(H) 70 - 100 mg/dl [facility] Counter Tacker ID [id number] [facility] Comment:Test Performed by [facility] ([place], [place]) Services 06/11/2013 23:4 5 EDT 06/12/2013 0:38 EDT us Antoinette Ambrose MD CHEMISTRY & BLOOD GAS ORDERABLE S Final Result Performing Organization Address [facility] de Phone Number [facility] [address] [place] [address] * SURGICAL PATHOLOGY (06/11/2013 21:01 EDT) Pathology Report: SURGICAL PATHOLOGY REPORT Reports generated via electronic interface contain original data; however they are lacking the format of the original report. Caution should be taken when reading/interpreti ng unformatted reports. Name: ? ERIKA HUSAIN ? Accession #: ? [id number] ? : ? 1960 (Age: 53) ??F [...] and sectioning discloses a pinpoint lumen throughout. 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 A11- ??anterior cervix A12- ??posterior cervix A13- [...] 06/12/2013 02:02 PM End of Report [facility] 06/11/2013 21:0 1 EDT 06/11/2013 21:01 EDT us Antoinette Ambrose MD PATHOLOGY ORDERABLES Final Resu lt [facility] [address] [place] [address] * (ABNORMAL) HEMAGRAM (06/11/2013 19:42 EDT) WBC 17.52(H) 4.0 - 12.4 K/cmm [facility] RBC 2.83(L) 3.86 - 5.04 M/cmm [facility] Hemoglobin 8.5(L) 11.6 - 15.2 gm/dl [facility] HCT 25.8(L) 34.9 - 44.4 % [facility] MCV 91 81 - 98 fl [facility] MCH 30.1 26.7 - 33.3 pg [facility] MCHC 33.1 32.1 - 35.9 gm/dl [facility] PLT 285 141 - 320 K/cmm [facility] RDW-CV 12.1 11.7 - 14.6 % [facility] Blood specimen (specimen) 06/11/2013 19:42 EDT 06/11/2013 19:50 EDT us Raleigh Griggs MD HEMATOLOGY & PF4 ORDERABLES F inal Result Performing Organization Address [facility] de Phone Number [facility] [address] [place] [address] * (ABNORMAL) HEMAGRAM (06/11/2013 18:13 EDT) WBC [...] (specimen) 06/11/2013 18:13 EDT 06/11/2013 18:39 EDT us Raleigh Griggs MD HEMATOLOGY & PF4 ORDERABLES F inal Result Performing Organization Address City/[facility] Co de Phone Number [facility] [address] [place] [address] * (ABNORMAL) GLUCOSE, GLUCOMETER (06/11/2013 17:05 EDT) Glucose, Fingerstick 211(H) 70 - 100 mg/dl [facility] Counter Tacker ID [id number] [facility] Comment:Test Performed by rsing Services 06/11/2013 17:0 5 EDT 06/11/2013 17:07 EDT Antoinette Ambrose MD CHEMISTRY & BLOOD GAS ORDERABLE S Final Result Performing Organization Address [facility] de Phone Number [facility] [address] [place] [address] * (ABNORMAL) GLUCOSE, GLUCOMETER (06/11/2013 13:31 EDT) Glucose, Fingerstick 227(H) 70 - 100 mg/dl [facility] Counter Tacker ID [id number] [facility] Comment:Test Performed by Nu [facility] Services 06/11/2013 13:3 1 EDT 06/11/2013 13:50 EDT Antoinette Ambrose MD CHEMISTRY & BLOOD GAS ORDERABLE S Final Result Performing Organization Address [facility] Co de Phone Number [facility] [address] [place] [address] * PHOSPHORUS (06/11/2013 13:15 EDT) Phosphorus 3.4 2.5 - 4.5 mg/dl [facility] Blood specimen (specimen) 06/11/2013 13:15 EDT 06/11/2013 13:38 EDT Leatha Mckenna MD CHEMISTRY & BLOOD GAS ORDERABLES Final Result Performing Organization Address [facility] Co de Phone Number [facility] [address] [place] [address] * (ABNORMAL) CALCIUM (06/11/2013 13:15 EDT) Calcium 7.9(L) 8.5 - 10.5 mg/dl [facility] Calculated Calcium 9.8 8.5 - 10.5 mg/dl [facility] Blood specimen (specimen) 06/11/2013 13:15 EDT 06/11/2013 13:38 EDT us Leatha Mckenna MD CHEMISTRY & BLOOD GAS ORDERABLES Final Result Performing Organization Address [facility] de Phone Number [facility] [address] [place] [address] * (ABNORMAL) MAGNESIUM (06/11/2013 13:15 EDT) Magnesium 1.5(L) 1.7 - 2.8 mg/dl [facility] Blood specimen (specimen) 06/11/2013 13:15 EDT 06/11/2013 13:38 EDT us Leatha Mckenna MD CHEMISTRY & BLOOD GAS ORDERABLES Final Result Performing Organization Address [facility] de Phone Number [facility] [address] [place] [address] * BUN (06/11/2013 13:15 EDT) BUN 20 10 - 26 mg/dl [facility] Blood specimen (specimen) 06/11/2013 13:15 EDT 06/11/2013 13:38 EDT us Leatha Mckenna MD CHEMISTRY & BLOOD GAS ORDERABLES Final Result Performing Organization Address [facility] de Phone Number [facility] [address] [place] [address] * CREATININE (06/11/2013 13:15 EDT) Creatinine 0.56 0.52 - 1.04 mg/dl [facility] GFR, Calculated >60 >60 ml/min/1.7 3m2 [facility] Blood specimen (specimen) 06/11/2013 13:15 EDT 06/11/2013 13:38 EDT us Leatha Mckenna MD CHEMISTRY & BLOOD GAS ORDERABLES Final Result Performing Organization Address [facility] Phone Number [facility] [address] [place] [address] * ELECTROLYTES (06/11/2013 13:15 EDT) Sodium 139 136 - 145 mEq/L [facility] Potassium 4.3 3.5 - 5.0 mEq/L [facility] Chloride 106 96 - 110 mEq/L [facility] CO2 27 24 - 32 mEq/L [facility] Blood specimen (specimen) 06/11/2013 13:15 EDT 06/11/2013 13:38 EDT Leatha Mckenna MD CHEMISTRY & BLOOD GAS ORDERABLES Final Result Performing Organization Address [facility] de Phone Number [facility] [address] [place] [address] * PROTIME (06/11/2013 13:15 EDT) Pro Time 11.8 9.5 - 13.1 secs [facility] I.N.R. 1.0 0.9 - 1.1 Ratio [facility] Comment: Moderate Intensity Coumadin INR = 2.0-3.0 Adjustments in anticoagulant therapy dose should be based upon the INR and NOT the Pro Time. Blood specimen (specimen) 06/11/2013 13:15 EDT 06/11/2013 13:38 EDT Leatha Mckenna MD HEMATOLOGY & PF4 ORDERABLES Jessica l Result Performing Organization Address [facility] de Phone Number [facility] [address] [place] [address] * FIBRINOGEN (06/11/2013 13:15 EDT) Fibrinogen 178 171 - 384 mg/dl [facility] Blood specimen (specimen) 06/11/2013 13:15 EDT 06/11/2013 13:38 EDT Leatha Mckenna MD HEMATOLOGY & PF4 ORDERABLES Jessica l Result Performing Organization Address [facility] de Phone Number [facility] [address] [place] [address] * (ABNORMAL) HEMAGRAM (06/11/2013 13:15 EDT) WBC 19.19(H) 4.0 - 12.4 K/cmm [facility] RBC 3.00(L) 3.86 - 5.04 M/cmm [facility] Hemoglobin 9.0(L) 11.6 - 15.2 gm/dl [facility] HCT 27.3(L) 34.9 - 44.4 % [facility] MCV 91 81 - 98 fl [facility] MCH 30.1 26.7 - 33.3 pg [facility] MCHC 33.0 32.1 - 35.9 gm/dl [facility] PLT 290 141 - 320 K/cmm [facility] RDW-CV 12.4 11.7 - 14.6 % [facility] Blood specimen (specimen) 06/11/2013 13:15 EDT 06/11/2013 13:38 EDT us Leatha Mckenna MD HEMATOLOGY & PF4 ORDERABLES Jessica l Result Performing Organization Address [facility] de Phone Number [facility] [address] [place] [address] * PTT (06/11/2013 11:05 EDT) Pathologist [facility] PTT 27 26 - 37 secs [facility] Comment:Therapeutic Heparin range: 65-100 seconds Blood specimen (specimen) 06/11/2013 11:05 EDT 06/11/2013 11:19 EDT us Gene Hanson MD HEMATOLOGY & PF4 ORDERABL ES Final Result Performing Organization Address [facility] de Phone Number [facility] [address] [place] [address] * PROTIME (06/11/2013 11:05 EDT) Pro Time 11.4 9.5 - 13.1 secs [facility] I.N.R. 1.0 0.9 - 1.1 Ratio [facility] Comment: Moderate Intensity Coumadin INR = 2.0-3.0 Adjustments in anticoagulant therapy dose should be based upon the INR and NOT the Pro Time. Blood specimen (specimen) 06/11/2013 11:05 EDT 06/11/2013 11:19 EDT Gene Hanson MD HEMATOLOGY & PF4 ORDERABL ES Final Result Performing Organization Address [facility] de Phone Number [facility] [address] [place] [address] * (ABNORMAL) HEMAGRAM (06/11/2013 11:05 EDT) Pathologist [facility] WBC 13.74(H) 4.0 - 12.4 K/cmm [facility] RBC 3.40(L) 3.86 - 5.04 M/cmm [facility] Hemoglobin 9.5(L) 11.6 - 15.2 gm/dl [facility] HCT 31.2(L) 34.9 - 44.4 % [facility] MCV 92 81 - 98 fl [facility] MCH 28.0 26.7 - 33.3 pg [facility] MCHC 30.6(L) 32.1 - 35.9 gm/dl [facility] PLT 323(H) 141 - 320 K/cmm [facility] RDW-CV 12.2 11.7 - 14.6 % [facility] Blood specimen (specimen) 06/11/2013 11:05 EDT 06/11/2013 11:19 EDT Gene Hanson MD HEMATOLOGY & PF4 ORDERABL ES Final Result Performing Organization Address [facility] de Phone Number [facility] [address] [place] [address] * PREPARE RED BLOOD CELLS (06/11/2013 10:55 EDT) Pathologist [facility] Product Code E0382 -3 RED BLOOD CELLS, Leukocytes Reduced [facility] Donor Number [id number] [facility] Unit ABO AB [facility] Unit Rh POS [facility] Unit Status Released From [facility] 06/11/2013 10:5 5 EDT us Rajendra Andrews MD BLOOD BANK ORDERABLES Final Result Performing Organization Address [facility] Co de Phone Number [facility] [address] [place] [address] * PREPARE RED BLOOD CELLS (06/11/2013 10:55 EDT) Product Code E0382 -3 RED BLOOD CELLS, Leukocytes Reduced [facility] Donor Number [id number] [facility] Unit ABO AB [facility] Unit Rh POS [facility] Unit Status Released From [facility] Blood specimen (specimen) 06/11/2013 10:55 EDT us Gifty Sanchez MD BLOOD BANK ORDERABLES Final Resu lt Performing Organization Address [facility] de Phone Number [facility] [address] [place] [address] * (ABNORMAL) GLUCOSE, GLUCOMETER (06/11/2013 8:17 EDT) Glucose, Fingerstick 136(H) 70 - 100 mg/dl [facility] Counter Tacker ID [id number] [facility] Comment:Test Performed by 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 ROLL OPERATOR, SCAN 2 - 06/10/2013 13:14 EDT us Scan 2 Film Laboratory Technician ADMISSION ORDERABLES Final Result documented in this encounter Visit Diagnoses Diagnosis Malignant neoplasm of corpus uteri, except isthmus (HCC-CMS)- Primary Malignant neoplasm of corpus uteri, 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, 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, except isthmus Asthma Unspecified asthma Hyperlipidemia Other and unspecified hyperlipidemia Need for Tdap vaccination Need for prophylactic vaccination with combined owjwypjstv-iqxbxoo-ephpgspvj (DTP) vaccine Abdominal discomfort Abdominal pain, unspecified [...] dose on Mon06/11/13 at 2100, Until Discontinued, RoutineIndications:Asthma,Hyperlipidemia,Need for Tdap vaccination,Abdominal discomfort,IBS (irritable bowel syndrome),GERD (gastroesophageal reflux disease) Given 06/12/2013 0:30 EDT 2 Puffs budesonide-formoterol HFA (SYMBICORT) 80-4.5 mcg/actuation inhaler 2 Puff 2 Puff, inhalation, 2 TIMES DAILY, First dose (after last modification) on Mon06/12/13 at 0900, Until Discontinued, RoutineIndications:Asthma,Hyperlipidemia,Need for Tdap vaccination,Abdominal discomfort,IBS (irritable bowel syndrome),GERD (gastroesophageal reflux disease) Given 06/14/2013 8:54 EDT 2 Puffs Given [...] dose on Mon06/11/13 at 1945, Until Discontinued, RoutineIndications:Myalgia and myositis Given 06/14/2013 8:55 EDT 60 mg Given 06/13/2013 9:22 EDT 60 mg Given 06/12/2013 9:13 EDT 60 mg enoxaparin (LOVENOX) injection 60 mg 60 mg, subcutaneous, DAILY, First dose on Mon06/12/13 at 0900, Until Discontinued, Routine Given 06/14/2013 8:54 EDT 60 mg Given 06/13/2013 9:22 EDT 60 mg Given 06/12/2013 9:24 EDT 60 mg fluticasone (FLONASE) nasal spray 1 Points 1 Points, nasal - both, DAILY, First dose on Mon06/11/13 at 1945, Until Discontinued, RoutineIndications:Asthma,Hyperlipidemia,Need for Tdap vaccination,Abdominal discomfort,IBS (irritable bowel syndrome),GERD (gastroesophageal reflux disease) Given 06/14/2013 8:54 EDT 1 Points Given 06/13/2013 9:22 EDT 1 Points Given 06/12/2013 9:19 EDT 1 Points gabapentin (NEURONTIN) capsule 600 mg 600 mg, [...] dose on Mon06/11/13 at 1945, Until Discontinued, RoutineIndications:Hyperlipidemia,Asthma,Need for Tdap vaccination,Abdominal discomfort,IBS (irritable bowel syndrome),GERD (gastroesophageal reflux disease) Given 06/14/2013 8:55 EDT 10 mg Given [...] dose on Mon06/11/13 at 2100, Until Discontinued, RoutineIndications:Hypertension Given 06/14/2013 8:54 EDT 25 mg Given 06/13/2013 21:16 EDT 25 mg Given 06/13/2013 9:27 EDT 25 mg montelukast (SINGULAIR) tablet 10 mg 10 mg, oral, AT BEDTIME, First dose on Mon06/12/13 at 2100, Until Discontinued, Routine Given 06/13/2013 21:16 EDT 1 0 mg Given 06/12/2013 21:04 EDT 10 mg morphine 2 mg/ml (DURAMORPH) THREAT MONITORING ANALYST, 30 ml syringe - LATEX SAFE intravenous, THREAT MONITORING ANALYST, Starting on Mon06/11/13 at 1415, Until Mon06/12/13 at 0900, Intravenous, THREAT MONITORING ANALYST, THREAT MONITORING ANALYST Dose: 1 mg LOCKOUT Interval: 6 minutes [...] First dose on Mon06/11/13 at 2100, Until DiscontinuedIndications:GERD (gastroesophageal reflux disease),Cough Given 06/14/2013 8:55 EDT 20 mg Given [...] on Mon06/13/13 at 0000, Until Discontinued, Routine Given 06/14/2013 [...] may reflect changes made after this encounter. HYDROcodone-aceta minophen (LORTAB) 10-500 mg per tablet Take 1 [...] times changed)0911 (Given - Provider: Lesli V Ladysmith)1227 (Given - Provider: Lesli V Ladysmith)1630 (Given - Provider: Lesli V Ladysmith)2039 (Given - Provider: Nuha Delacruz RN) 0100 (Given - Provider: Cathryn Zamarripa, RON)0658 (Given - Provider: Cathryn Zamarripa RN)0700 (Hold - Provider: Lesli V Ladysmith - Reason: Order parameters not met - Comment: given 45 minutes earlier)1102 (Given - Provider: Lesli V Radha)1511 (Given - Provider: Lesli V Radha)1929 (Given - Provider: Kirsten Giles, RON)2351 (Given - Provider: Kirsten Giles, RON) 0401 (Given - Provider: Ijeoma Ken, RON)0758 (Given - Provider: Ijeoma Ken RN)1216 (Given - Provider: Lesli V Radha) albuterol (VENTOLIN HFA) inhaler 2 Puff (CANCELED) 2 Puff, inhalation, EVERY 4 HOURS, First dose on Mon06/11/13 at 1945, Until Discontinued, Routine 0030 (Given - Provider: RT Stacy) budesonide-formoterol HFA (SYMBICORT) 80-4.5 mcg/actuation inhaler 2 Puff (CANCELED) 2 Puff, inhalation, 2 TIMES DAILY, First dose on Mon06/11/13 at 2100, Until Discontinued, Routine 0030 (Given - Provider: RT Stacy) budesonide-formoterol HFA (SYMBICORT) 80-4.5 mcg/actuation inhaler 2 Puff (CANCELED) 2 Puff, inhalation, 2 TIMES DAILY, First dose (after last modification) on Mon06/12/13 at 0900, Until Discontinued, Routine 09 (Given - Provider: Lesli Kylah IyerRadha)210 (Given - Provider: Nuha Delacruz RN) 0800 (Given - Provider: Lesli Kylah Garcia)2118 (Given - Provider: Kirsten Giles RN) 0854 (Given - Provider: Ijeoma Ken RN) docusate sodium (COLACE) capsule 100 mg 100 mg, oral, 2 TIMES DAILY, First dose on Mon06/11/13 at 2100, Until Discontinued, Routine, On Unit 937 (Given - Provider: Lesli Garcia)2110 (Given - Provider: Nuha Delacruz RN) 09 (Given - Provider: Lesli Garcia)2115 (Given - Provider: Kirsten Giles RN) 0855 (Given - Provider: Ijeoma Kne RN) DULoxetine (CYMBALTA) capsule 60 mg (CANCELED) 60 mg, oral, DAILY, First dose on Mon06/11/13 at 1945, Until Discontinued, Routine 912 (Given - Provider: Lesli Garcia) 09 (Given - Provider: Lesli Garcia) 0855 (Given - Provider: Ijeoma Ken RN) enoxaparin (LOVENOX) injection 60 mg (CANCELED) 60 mg, subcutaneous, DAILY, First dose on Mon06/12/13 at 0900, Until Discontinued, Routine 0924 (Given - Provider: Lesli Garcia) 0922 (Given - Provider: Lesli Garcia) 0854 (Given - Provider: Ijeoma Ken RN) fluticasone (FLONASE) nasal spray 1 Points (CANCELED) 1 Points, nasal - both, DAILY, First dose on Mon06/11/13 at 1945, Until Discontinued, Routine 0919 (Given - Provider: Lesli Garcia) 0922 (Given - Provider: Lesli Garcia) 0854 (Given - Provider: Ijeoma Ken RN) insulin aspart (NOVOLOG FLEXPEN) injection (CANCELED) subcutaneous, 3 TIMES DAILY WITH MEALS, First dose on Mon06/12/13 at 0800, Until Discontinued, Routine 0820 (Given - Provider: Lesli Garcia)1247 (Given - Provider: Lesli Garcia)1730 (Given - Provider: Lesli Garcia) 0000 (Not Given - Provider: Lesli Iyerelow - Reason: Order parameters not met - Comment: bloodsugar = 124)1329 (Not Given - Provider: Lesli Garcia - Reason: Order parameters not met - Comment: blood glucose =125)1832 (Not Given - Provider: Lesli Garcia - Reason: Order parameters not met) 0701 (Not Given - Provider: Ijeoma Ken RN - Reason: Order parameters not met)1200 (Due) lovastatin (MEVACOR) tablet 10 mg (CANCELED) 10 mg, oral, DAILY, First dose on Mon06/11/13 at 1945, Until Discontinued, Routine 0915 (Given - Provider: Lesli Garcia) 09 (Given - Provider: Lesli Garcia) 08 (Given - Provider: Ijeoma Ken RN) metoprolol (LOPRESSOR) tablet 25 mg (CANCELED) 25 mg, oral, 2 TIMES DAILY, First dose on Mon06/11/13 at 2100, Until Discontinued, Routine 916 (Given - Provider: Lesli Garcia)2109 (Given - Provider: Nuha Delacruz RN) 926 (Given - Provider: Lesli Garcia)2115 (Given - [...] dose on Mon06/11/13 at 2100, Until Discontinued 832 (Given - Provider: Lesli Garcia)2106 (Given - Provider: Nuha Delacruz RN) 08 (Given - Provider: Lesli Garcia)2115 (Given - Provider: Kirsten Giles RN) 0855 (Given - Provider: Ijeoma Jakobeit, RN) sodium chloride 0.9 % flush 3 mL (CANCELED) 3 mL, intravenous, EVERY 8 HOURS, First dose on Shirley 06/13/13 at 0000, Until Discontinued, Routine 0015 (Given [...] Maynard RN)0226 (Rate Documented - Provider: Delia Maynard RN)0415 (Rate Documented - Provider: Delia Maynard RN)0504 (New Bag - Provider: Delia Maynard, RN) morphine 2 mg/ml (DURAMORPH) THREAT MONITORING ANALYST, 30 ml syringe - LATEX SAFE (CANCELED) intravenous, THREAT MONITORING ANALYST, Starting on Mon06/11/13 at 1415, Until Mon06/12/13 at 0900, Intravenous, THREAT MONITORING ANALYST, THREAT MONITORING ANALYST Dose: 1 mg LOCKOUT Interval: 6 minutes ONE HOUR Dose Limit: 10 mg See PRN bolus orders for breakthrough pain., Routine 0000 (Rate Documented - Provider: Delia Maynard RN) sodium chloride 0.9 % (NS) infusion [...] Delacruz RN) 0712 (Given - Provider: Cathryn Zamarripa RN) diphenhydrAMINE (BENADRYL) capsule 25-50 mg (CANCELED)(Linked Group [...] Pain, Routine 0113 (Given - Provider: Cathryn Zamarripa RN)0726 (Given - Provider: Cathryn Zamarripa RN) ondansetron (ZOFRAN-ODT) disintegrating tablet 4 mg(Linked Group [...] V Radha)1630 (Given - Provider: Lesli V Ladysmith)1857 (Given - Provider: Lesli V Radha)2225 (Given - Provider: Nuha Delacruz, RON) 0100 (Given - Provider: Cathryn Zamarripa, RON)0345 (Given - Provider: Cathryn Zamarripa, RON)0658 (Given - Provider: Cathryn Zamarripa RN)1010 (Given - Provider: Lesli V Ladysmith)1315 (Given - Provider: Lesli V Radha)1618 (Given - Provider: Lesli V Ladysmith)1930 (Given - Provider: Kirsten Giles, RON)2228 (Given - Provider: Kirsten Giles RN) 0126 (Given - Provider: Kirsten Giles RN)0401 (Given - Provider: Ijeoma Ken, RON)0659 (Given - Provider: Ijeoma Ken RN)1007 (Given - Provider: Ijeoma Ken RN)1319 (Given - Provider: Lesli V Ladysmith) Linked Groups Order Group 1: diphenhydrAMINE (BENADRYL) [...] ml 1 06/11/2013 morphine 2 mg/ml (DURAMORPH) THREAT MONITORING ANALYST, 30 ml syringe 1 06/11/2013 morphine 2 [...] 06/14/2013 documented in this encounter Care Teams Route Delivery Supervisor Relationship Specialty Start Date End Date Keshawn Mehta MD [address] [place] [phone] PCP - General 02/19/09 01/04/15 documented as of this encounter
--- OUTSIDE RECORDS SUMMARY | 2024-09-17 15:19 | XMS_ITS | Encounter Summary ---
Author Organization [facility] Address [address] [place] [address] Care Team Providers Care Childbirth Educator Name Role Phone Remedios Mehta MD Primary Care Provider [phone] Reason for Visit * Reason Comments Other Encounter Details Date Type Department Care Team (Late st Contact Info) Description 09/12/2013 [facility] Medicine [address] [address] Remedios Mehta MD [address] [place] [phone] Other Social History Tobacco Use Types [...] on filedocumented in this encounter Care Teams Childbirth Educator Relationship Specialty Start Date End Date Remedios Mehta MD [address] [place] [phone] PCP - General 02/19/09 01/04/15 documented as of this encounter
--- OUTSIDE RECORDS SUMMARY | 2024-09-17 15:19 | XMS_ITS | Encounter Summary ---
Author Organization [facility] Address [address] [place] [address] Care Team Providers Care Renderer Name Role Phone Remedios Mehta MD Primary Care Provider [phone] Reason for Referral * Consult, Test and Treat (Routine/Next Available) - Closed Specialty Diagnoses / Procedures Referred By Joao proctor Referred To Contact Rehab Therapies Diagnoses Osteoarthritis of left knee Barney Vallecillo MD Referral ID Status Reason Start Date Expiration Date V isits Requested Visits Authorized [id number] Closed Specialty Services Required 08/05/2013 1 1 Question Answer Reason for Request: left knee pain, OA, pez bursitis. Reason for Visit * Reason Comments Knee Pain s/p right total knee arthroplasty 08/05/10 Knee Pain Left knee Encounter Details Date Type Department Care Team (Latest Contact Info) Description 08/05/2013 11:00 EDT Office Visit [facility] Total Joint Program [place] [address] [place] [address] Yonathan Moreland MD Osteoarthritis of left knee [...] 08/05/2013 1142 EDT documented in this encounter Mental Status * Because of a physical, mental, or emotional condition, do you have serious difficulty concentrating, remembering, or making decisions? (5 years old or older) Answer Entry Date Author Yes 07/17/2013 23:00 EDT Phill Live RN documented in this encounter Discharge Disposition Disposition [...] knee replacement 3 years ago here at [facility]. She continues to have a small area [...] bursitis documented in this encounter Care Teams Renderer Relationship Specialty Start Date End Date Remedios Mehta MD [address] [place] [phone] PCP - General 02/19/09 01/04/15 documented as of this encounter
--- OUTSIDE RECORDS SUMMARY | 2024-09-17 15:19 | XMS_ITS | Encounter Summary ---
Author Organization [facility] Address [address] [place] [address] Care Team Providers Care Senior Environmental Consultant Name Role Phone Remedios Mehta MD Primary Care Provider [phone] Reason for Visit * Reason Onset Date Comments Medications Refill 07/04/2013 Encounter Details Date Type Department Care Team (Late st Contact Info) Description 07/04/2013 Refill [facility] Spine Program - [address] [address] aMrylou Gentile PA-C [address] [place] [phone] Medications Refill Social History Tobacco Use [...] Bala Veronica RN documented in this encounter Ordered Prescriptions [...] as of this encounter Care Teams Senior Environmental Consultant Relationship Specialty Start Date End Date Remedios Mehta MD [address] [place] [phone] PCP - General 02/19/09 01/04/15 documented as of this encounter
--- OUTSIDE RECORDS SUMMARY | 2024-09-17 15:19 | XMS_ITS | Encounter Summary ---
Author Organization [facility] Address [address] [place] [address] Care Team Providers Care Hatchery Manager Name Role Phone Remedios Mehta MD Primary Care Provider [phone] Reason for Referral * Radiology Services (Routine/Next Available) - Closed Specialty Diagnoses / Procedures Referred By Contac t Referred To Contact Diagnoses Knee pain Procedures KNEE 1 OR 2 VIEWS Yonathan Moreland MD Referral ID Status Reason Start Date Expiration Date Visits Re quested Visits Authorized [id number] Closed 08/04/2013 1 1 * Radiology Services (Routine/Next Available) - Closed Specialty Diagnoses / Procedures Referred By Contac t Referred To Contact Diagnoses Knee pain Procedures KNEE 1 OR 2 VIEWS Yonathan Moreland MD Referral ID Status Reason Start Date Expiration Date Visits Re quested Visits Authorized [id number] Closed 08/04/2013 1 1 Encounter Details Date Type Department Care Team (Late st Contact Info) Description 07/31/2013 Orders Only [facility] Total Joint Program [place] [address] [place] [address] Yonathan Moreland MD Knee pain [...] Signs and Symptoms/Comments: ??719.46-Pain in joint, lower awc-GFY-5-CM; right total knee replacement due to osteoarthritis [...] Signs and Symptoms/Comments: 719.46-Pain in joint, lower nbg-UGT-1-CM; right total knee replacement due to osteoarthritis [...] spines. Mineralization is age-appropriate. Yonathan Moreland MD [facility] DIAGNOSTIC IMAGING ORDERABLES Final Result * KNEE 1 OR 2 VIEWS (08/05/2013 11:34 EDT) Anatomical Region Laterality Modality Other 08/05/2013 11:3 4 EDT 08/08/2013 10:26 EDT Narrative 08/08/2013 10:26 EDT KNEE 1 OR 2 VIEWS, KNEE 1 OR 2 VIEWS ??08/05/2013 11:34 AM Signs and Symptoms/Comments: ??719.46-Pain in joint, lower uva-HLN-6-CM; right total knee replacement due to osteoarthritis [...] Signs and Symptoms/Comments: 719.46-Pain in joint, lower vca-XKF-1-CM; right total knee replacement due to osteoarthritis [...] leg documented in this encounter Care Teams Hatchery Manager Relationship Specialty Start Date End Date Remedios Mehta MD [address] [place] [phone] PCP - General 02/19/09 01/04/15 documented as of this encounter
--- OUTSIDE RECORDS SUMMARY | 2024-09-17 15:19 | XMS_ITS | Encounter Summary ---
Author Organization [facility] Address [address] [place] [address] Care Team Providers Care In Flight Technician Name Role Phone Remedios Mehta MD Primary Care Provider [phone] [phone] Reason for Visit * Reason Comments Fibromyalgia Back Pain fell on ice Encounter Details Date Type Department Care Team (Late st Contact Info) Description 09/13/2013 9:45 EST Office Visit [address] [address] Remedios Mehta MD [address] [place] [phone] Pain of right leg (Primary Dx); [...] End Date polyethylene glycol (GLYCOLAX) 17 gram/dose powderIndications: Constipation,IC (irritable colon) Take 17 g by mouth daily. 1 Bottle 3 09/13/2013 12/23/2013 meloxicam (MOBIC) 7.5 mg tabletIndications: Cervical spondylosis without myelopathy,Arthrop athy,Fibromyalgia Take 1 Tab by mouth daily. 30 Tab 2 09/13/2013 01/14/2014 HYDROcodone-acetam inophen (NORCO) 10-325 mg per tabletIndications: Pain of right leg,Cervical spondylosis without myelopathy,Arthrop athy,Fibromyalgia Take 1 Tab by mouth every 6 hours as needed for Pain. 116 Tab 1 09/13/2013 12/18/2013 traZODone (DESYREL) 100 mg tabletIndications: Pain of right leg Take 1 Tab by [...] lot. Has also had some assistance from T. She is hoping to sell her place [...] 50 mcg/actuation nasal spray Active Instill 1 [place] into both nostrils daily. 1 Bottle 5 [...] mg into the skin daily. START 06/12/13 Therapy completed 06/12/2013 09/13/2013 predniSONE (DELTASONE) 20 [...] documented as of this encounter Care Teams In Flight Technician Relationship Specialty Start Date End Date Remedios Mehta MD [address] [place] [phone] PCP - General 02/19/09 01/04/15 documented as of this encounter
--- OUTSIDE RECORDS SUMMARY | 2024-09-17 15:19 | XMS_ITS | Encounter Summary ---
Author Organization [facility] Address [address] [place] [address] Care Team Providers Care Media Consultant Name Role Phone Remedios Mehta MD Primary Care Provider [phone] Reason for Referral * Consult (Routine/Next Available) - Closed Specialty Diagnoses / Procedures Referred By Joao proctor Referred To Contact Diagnoses Post op infection Jaimee Tamayo MD Referral ID Status Reason Start Date Expiration Date V isits Requested Visits Authorized [id number] Closed Specialty Services Required 07/20/2013 1 1 Question Answer Halfway Referral - Wound Care: (Please include care and frequency.) Post Surgical - Pack wound w/ iodoform gauze once daily. Comments Pack wound w/ iodoform gauze once daily. Encounter Details Date Type Department Care Team (Latest Contact Info) Description 07/17/2013 13:34 EDT - 07/20/2013 13:42 EDT Hospital Encounter [facility] General Medicine Unit [address], [place] [id number] Denisha Topete MD [address] [place] [address] [address] [place] [address] Post op infection (Primary Dx); [...] 07/17/2013 1730 EDT documented in this encounter Mental Status * Because of a physical, mental, or emotional condition, do you have serious difficulty concentrating, remembering, or making decisions? (5 years old or older) Answer Entry Date Author Yes 07/17/2013 23:00 EDT Phill Live RN documented in this encounter Discharge Summaries * Jaimee Tamayo [...] 03/05/2012 Discharge Summary Completed: 07/20/2013 Home Health [id number] Encounter: I certify that this patient is under my care and that I, or a Medicare authorized non-physician provider (BINDER OPERATOR or PA) working with me, had a [id number] encounter with this patient on 07/20/2013 that was in whole or in part related to the reason the patient needs home health care. The findings of this encounter indicate that the patient requires shelter or therapist services for the reasonslisted below. alf services: - are required to train the [...] limit the patient's ability to leave home Cosigned by Antoinette Ambrose MD at 07/20/2013 20:46 EDT documented in this encounter Discharge Instructions [...] bowel syndrome),GERD (gastroesophageal reflux disease) Instill 1 [place] into both nostrils daily. 1 Bottle 5 [...] (LOVENOX) 60 mg/0.6 mL injectionIndication s:Hypercoagulable state ([facility]) Inject 60 mg into the skin daily. START 06/12/13 30 Syringe 0 3 09/13/20 13 ferrous gluconate (FERGON) 324 mg (38 mg iron) tablet Take 1 Tab by mouth 2 times daily with breakfast and dinner. 60 Tab 4 3 04/18/20 21 HYDROcodone-acetami nophen (NORCO) 10-325 mg per tablet Take 1 Tab by mouth every 6 hours as needed for Pain. 116 Tab 1 3 09/13/20 13 ketoconazole (NIZORAL) 2 % creamIndications:Ra sh Apply topically daily. Apply to affect area(s) as directed. 1 Tube 1 0 04/18/20 21 levofloxacin (LEVAQUIN) 500 mg tablet Take 1 Tab by mouth daily for 10 days. 10 Tab 0 3 07/30/20 13 lovastatin (MEVACOR) 10 mg tabletIndications:H yperlipidemia Take 1 Tab by mouth daily. 90 Tab 4 3 12/23/19 14 meloxicam (MOBIC) 7.5 mg tablet Take 1 Tab by mouth daily. 30 Tab 2 3 09/13/20 13 metoprolol (LOPRESSOR) 25 mg tabletIndications:H ypertension Take 1 Tab by mouth 2 times daily. 180 Tab 4 3 09/24/20 18 metroNIDAZOLE (FLAGYL) 500 mg tablet Take 1 Tab by mouth every 8 hours for 10 days. 30 Tab 0 3 07/30/20 13 omeprazole (PRILOSEC) 20 mg capsuleIndications: GERD (gastroesophageal reflux disease),Cough Take 1 Cap by mouth 2 times daily. 60 Cap 5 3 12/20/19 14 ondansetron (ZOFRAN-ODT) 4 mg disintegrating tablet Take 1 Tab by mouth every 6 hours as needed for Nausea. 12 Tab 0 3 09/24/20 18 polyethylene glycol (GLYCOLAX) 17 gram/dose powderIndications:C onstipation [...] Refills Last Filled Start Date End Date metroNIDAZOLE (FLAGYL) 500 mg tablet Take 1 [...] sent home with patient. Report called to [facility]. R: Patient verbalized understanding of [...] DAILY ??? fluticasone (FLONASE) nasal spray 1 [place] nasal - both DAILY ??? lovastatin (MEVACOR) [...] ??C (95.4 ??F) 97 % Room air 07/19/132058 93/57 mmHg - - - - 07/19/13 [...] is a 53 y.o. F POD#39 s/p BRITTANY/BSO for grade I endometrial cancer readmitted with [...] SQ Bid, Seqential Compression Deviceand Ambulate RALEIGH GRIGGS MD 07/20/2013 2:43 Patient seen and agree [...] wound Current Living Arrangements: Lives independently in [facility]; has multi level home and has been able to use stairs safely at home Current Social, Health Care and Community Supports: Friend Jeannette Snyder PCP is Remedios Strong MD [phone] Identified Case Management/Social Work Needs and Issues (housing, care, financial, transportation, cultural, spiritual, emotional, legal, etc.): Medicare and medicaid insurances with prescription benefits Pt's car is parked in [facility]. Friend Jeannette will come on day of dc and drive pt homein her own car. Case Management Actions (completed and planned): Met pt, introduced CM role, performed home risk assessment Anticipates will be discharged over weekend. IM noticed explained, signed by pt. Pt active with [facility] for wound care - will need resumption of care orders and F2F documentation for discharge. Please call CM with further concerns Nayeli simental RN CM [phone] (covering for Malou Wing RN) * Alyssa Phillips MD - 07/19/2013 1719 EDT Gynecology Progress Note Admit Date: 07/17/2013 [...] DAILY ??? fluticasone (FLONASE) nasal spray 1 [place] nasal - both DAILY ??? lovastatin (MEVACOR) [...] ??C (95 ??F) 98 % Room air 07/18/13 2004 108/55 mmHg 69 - - - - [...] DAILY ??? fluticasone (FLONASE) nasal spray 1 [place] nasal - both DAILY ??? lovastatin (MEVACOR) [...] ??F) 97 % - Room air - 07/17/13 2125 113/66 mmHg 63 - - - - - - - 07/17/13 2043 - - 63 BPM 18 - 97 [...] Mckenna MD - 07/18/2013 0350 EDT R2 [facility] M Note CTSP for increased incisional pain. S: [...] Husain is an 53 y.o. POD#37 s/p [facility], BSO for grade 1 endometrial Ca, now [...] is a 53 yo POD 37 from [facility] BSO for FIGO grade I endometrial ca, [...] 53 y.o. 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 Seen today by BINDER OPERATOR Adry and Helen JARVIS, exam concerning forabscess. Sent [...] Notes * Zena Umana MD - 07/17/2013 1814 EDT Gynecology Admission Note/Pre-op Note Admit Date: [...] developed an abscess. She was sent to [facility] radiology, where she underwent a CT abdomen pelvis that showed concern for skin infection surrounding her Pfannenstiel incision, as well as a small abscess with a draining sinus tract. She was then admitted to [facility] gynecology service for treatment. The patient is [...] Right TKR ([place]) ??? Colonoscopy 2010 ??? Brittany and bso [...] Father ??? High Cholesterol Father OB History [facility] M History OB History Grav Para Term Abortions [...] (FLONASE) 50 mcg/actuation nasal spray Instill 1 [place] into both nostrils daily. 1 Bottle 5 [...] Deviceand Ambulate Zena Umana MD 07/17/2013 18:37 Cosigned by Denisha Topete MD at 07/17/2013 20:22 EDT documented in this encounter Consult Notes * [...] encounter Miscellaneous Notes * Scanned Note-Null - MULTIGRAPH OPERATOR, SCAN 2 - 07/25/2013 1500 EDT * Scanned Note-Null - MULTIGRAPH OPERATOR, SCAN 2 - 07/22/2013 0840 EDT * [...] additional oxycodone 10 mg at next due [id number]; administered 10 mg of oxycodone @ 2100 [...] abdominal wound packed with xeroform strips by [facility] M services, covered with ABD; wound draining moderate [...] Care - Kalpana Fuentes RN - 07/18/2013 0411 EDT Data: Patient admitted with concern for [...] release andscheduled Tylenol given for pain, see dec. Patient being followed by [facility] service. Trazodone given for sleep aide, see dec. Response: MD Nelson and MD Mckenna consulted [...] RN 07/18/2013 4:11 * Scanned Note-Null - MULTIGRAPH OPERATOR, SCAN 2 - 07/17/2013 1340 EDT * Scanned Note-Null - MULTIGRAPH OPERATOR, SCAN 2 - 07/17/2013 1340 EDT * Scanned Note-Null - MULTIGRAPH OPERATOR, SCAN 2 - 07/17/2013 1340 EDT documented in this encounter Plan of Treatment Scheduled Referrals Name Type Priority Associated Diagnoses Orde r Schedule FROM IP - CONSULT HOME HEALTH SERVICES Outpatient Referral Routine Post op infection [...] EDT) Calcium 9.2 8.5 - 10.5 mg/dl [facility] Calculated Calcium 10.0 8.5 - 10.5 mg/dl [facility] Blood specimen (specimen) 07/19/2013 6:39 EDT 07/19/2013 7:05 EDT Zena Vee MD CHEMISTRY & BLOOD GAS ORDERABLES Final Result Performing Organization Address [facility] de Phone Number [facility] [address] [place] [address] * (ABNORMAL) PHOSPHORUS (07/19/2013 6:39 EDT) Phosphorus 5.1(H) 2.5 - 4.5 mg/dl [facility] Blood specimen (specimen) 07/19/2013 6:39 EDT 07/19/2013 7:05 EDT Zena Vee MD CHEMISTRY & BLOOD GAS ORDERABLES Final Result Performing Organization Address City/[facility] de Phone Number [facility] [address] [place] [address] * MAGNESIUM (07/19/2013 6:39 EDT) Magnesium 2.0 1.7 - 2.8 mg/dl [facility] Blood specimen (specimen) 07/19/2013 6:39 EDT 07/19/2013 7:05 EDT Zena Vee MD CHEMISTRY & BLOOD GAS ORDERABLES Final Result Performing Organization Address City/[facility] Co de Phone Number [facility] [address] [place] [address] * CREATININE (07/19/2013 6:39 EDT) Pathologist [facility] Creatinine 0.76 0.52 - 1.04 mg/dl [facility] GFR, Calculated >60 >60 ml/min/1.7 3m2 [facility] Blood specimen (specimen) 07/19/2013 6:39 EDT 07/19/2013 7:05 EDT Zena Vee MD CHEMISTRY & BLOOD GAS ORDERABLES Final Result Performing Organization Address [facility] Co de Phone Number [facility] [address] [place] [address] * (ABNORMAL) BUN (07/19/2013 6:39 EDT) Pathologist [facility] BUN 8(L) 10 - 26 mg/dl [facility] Blood specimen (specimen) 07/19/2013 6:39 EDT 07/19/2013 7:05 EDT Zena Vee MD CHEMISTRY & BLOOD GAS ORDERABLES Final Result Performing Organization Address [facility] de Phone Number [facility] [address] [place] [address] * ELECTROLYTES (07/19/2013 6:39 EDT) Pathologist [facility] Sodium 141 136 - 145 mEq/L [facility] Potassium 4.4 3.5 - 5.0 mEq/L [facility] Chloride 102 96 - 110 mEq/L [facility] CO2 31 24 - 32 mEq/L [facility] Blood specimen (specimen) 07/19/2013 6:39 EDT 07/19/2013 7:05 EDT Zena Vee MD CHEMISTRY & BLOOD GAS ORDERABLES Final Result Performing Organization Address [facility] Co de Phone Number [facility] [address] [place] [address] * (ABNORMAL) HEMAGRAM (07/19/2013 6:39 EDT) Pathologist [facility] WBC 5.49 4.0 - 12.4 K/cmm [facility] RBC 3.40(L) 3.86 - 5.04 M/cmm [facility] Hemoglobin 9.9(L) 11.6 - 15.2 gm/dl [facility] HCT 29.9(L) 34.9 - 44.4 % [facility] MCV 88 81 - 98 fl [facility] MCH 29.2 26.7 - 33.3 pg [facility] MCHC 33.2 32.1 - 35.9 gm/dl [facility] PLT 273 141 - 320 K/cmm [facility] RDW-CV 16.2(H) 11.7 - 14.6 % [facility] Blood specimen (specimen) 07/19/2013 6:39 EDT 07/19/2013 7:05 EDT Aziza Nelson MD HEMATOLOGY & PF4 ORDERABLE S Final Result Performing Organization Address City/[facility] Co de Phone Number [facility] [address] [place] [address] * CALCIUM (07/18/2013 6:49 EDT) Pathologist [facility] Calcium 8.9 8.5 - 10.5 mg/dl [facility] Calculated Calcium 9.9 8.5 - 10.5 mg/dl [facility] Blood specimen (specimen) 07/18/2013 6:49 EDT 07/18/2013 7:36 EDT us Zena Vee MD CHEMISTRY & BLOOD GAS ORDERABLES Final Result Performing Organization Address City/[facility] Co de Phone Number [facility] [address] [place] [address] * (ABNORMAL) PHOSPHORUS (07/18/2013 6:49 EDT) Pathologist [facility] Phosphorus 5.0(H) 2.5 - 4.5 mg/dl [facility] Blood specimen (specimen) 07/18/2013 6:49 EDT 07/18/2013 7:36 EDT Zena Vee MD CHEMISTRY & BLOOD GAS ORDERABLES Final Result Performing Organization Address [facility] Co de Phone Number [facility] [address] [place] [address] * MAGNESIUM (07/18/2013 6:49 EDT) Magnesium 2.0 1.7 - 2.8 mg/dl [facility] Blood specimen (specimen) 07/18/2013 6:49 EDT 07/18/2013 7:36 EDT Zena Vee MD CHEMISTRY & BLOOD GAS ORDERABLES Final Result Performing Organization Address [facility] de Phone Number [facility] [address] [place] [address] * CREATININE (07/18/2013 6:49 EDT) Creatinine 0.70 0.52 - 1.04 mg/dl [facility] GFR, Calculated >60 >60 ml/min/1.7 3m2 [facility] Blood specimen (specimen) 07/18/2013 6:49 EDT 07/18/2013 7:36 EDT Zena Vee MD CHEMISTRY & BLOOD GAS ORDERABLES Final Result Performing Organization Address [facility] de Phone Number [facility] [address] [place] [address] * BUN (07/18/2013 6:49 EDT) BUN 10 10 - 26 mg/dl [facility] Blood specimen (specimen) 07/18/2013 6:49 EDT 07/18/2013 7:36 EDT Zena Vee MD CHEMISTRY & BLOOD GAS ORDERABLES Final Result Performing Organization Address [facility] Co de Phone Number [facility] [address] [place] [address] * ELECTROLYTES (07/18/2013 6:49 EDT) Sodium 142 136 - 145 mEq/L [facility] Potassium 4.5 3.5 - 5.0 mEq/L [facility] Chloride 103 96 - 110 mEq/L [facility] CO2 29 24 - 32 mEq/L [facility] Blood specimen (specimen) 07/18/2013 6:49 EDT 07/18/2013 7:36 EDT Zena Vee MD CHEMISTRY & BLOOD GAS ORDERABLES Final Result Performing Organization Address [facility]/ZIP Co de Phone Number [facility] [address] [place] [address] * DIFFERENTIAL (07/17/2013 17:58 EDT) % Neutrophils [...] 07/17/2013 17:5 8 EDT 07/17/2013 18:08 EDT Zena Vee MD HEMATOLOGY & PF4 ORDERABLES Jessica l Result Performing Organization Address [facility]/ZIP Co de Phone Number [facility] [address] [place] [address] * (ABNORMAL) HEMAGRAM (07/17/2013 17:58 EDT) WBC 5.24 4.0 - 12.4 K/cmm [facility] RBC 3.62(L) 3.86 - 5.04 M/cmm [facility] Hemoglobin 10.3(L) 11.6 - 15.2 gm/dl [facility] HCT 31.1(L) 34.9 - 44.4 % [facility] MCV 86 81 - 98 fl [facility] MCH 28.5 26.7 - 33.3 pg [facility] MCHC 33.1 32.1 - 35.9 gm/dl [facility] PLT 319 141 - 320 K/cmm [facility] RDW-CV 16.2(H) 11.7 - 14.6 % [facility] 07/17/2013 17:5 8 EDT 07/17/2013 18:08 EDT Zena Vee MD HEMATOLOGY & PF4 ORDERABLES Jessica l Result Performing Organization Address City/[facility] Co de Phone Number [facility] [address] [place] [address] * CALCIUM (07/17/2013 17:58 EDT) Calcium 9.3 8.5 - 10.5 mg/dl [facility] Calculated Calcium 9.8 8.5 - 10.5 mg/dl [facility] Blood specimen (specimen) 07/17/2013 17:58 EDT 07/17/2013 18:08 EDT Zena Vee MD CHEMISTRY & BLOOD GAS ORDERABLES Final Result Performing Organization Address City/[facility] Co de Phone Number [facility] [address] [place] [address] * PHOSPHORUS (07/17/2013 17:58 EDT) Phosphorus 4.1 2.5 - 4.5 mg/dl [facility] Blood specimen (specimen) 07/17/2013 17:58 EDT 07/17/2013 18:08 EDT Zena Vee MD CHEMISTRY & BLOOD GAS ORDERABLES Final Result Performing Organization Address City/[facility] Co de Phone Number [facility] [address] [place] [address] * MAGNESIUM (07/17/2013 17:58 EDT) Magnesium 2.1 1.7 - 2.8 mg/dl [facility] Blood specimen (specimen) 07/17/2013 17:58 EDT 07/17/2013 18:08 EDT Zena Vee MD CHEMISTRY & BLOOD GAS ORDERABLES Final Result Performing Organization Address [facility] de Phone Number [facility] [address] [place] [address] * CREATININE (07/17/2013 17:58 EDT) Creatinine 0.61 0.52 - 1.04 mg/dl [facility] GFR, Calculated >60 >60 ml/min/1.7 3m2 [facility] Blood specimen (specimen) 07/17/2013 17:58 EDT 07/17/2013 18:08 EDT Zena Vee MD CHEMISTRY & BLOOD GAS ORDERABLES Final Result Performing Organization Address [facility] Co de Phone Number [facility] [address] [place] [address] * BUN (07/17/2013 17:58 EDT) BUN 16 10 - 26 mg/dl [facility] Blood specimen (specimen) 07/17/2013 17:58 EDT 07/17/2013 18:08 EDT Zena Vee MD CHEMISTRY & BLOOD GAS ORDERABLES Final Result Performing Organization Address City/[facility]/ZIP Co de Phone Number [facility] [address] [place] [address] * ELECTROLYTES (07/17/2013 17:58 EDT) Sodium 140 136 - 145 mEq/L [facility] Potassium 3.8 3.5 - 5.0 mEq/L [facility] Chloride 104 96 - 110 mEq/L [facility] CO2 26 24 - 32 mEq/L [facility] Blood specimen (specimen) 07/17/2013 17:58 EDT 07/17/2013 18:08 EDT Zena Vee MD CHEMISTRY & BLOOD GAS ORDERABLES Final Result Performing Organization Address [facility] Co de Phone Number [facility] [address] [place] [address] * (ABNORMAL) SCREENING GLUCOSE (07/17/2013 17:58 EDT) Glucose, Screening 119(H) 70 - 100 mg/dl [facility] Blood specimen (specimen) 07/17/2013 17:58 EDT 07/17/2013 18:08 EDT Zena Vee MD CHEMISTRY & BLOOD GAS ORDERABLES Final Result Performing Organization Address [facility] de Phone Number [facility] [address] [place] [address] documented in this encounter Visit Diagnoses Diagnosis Post op infection- Primary Other postoperative infection Post op infection Other postoperative infection Asthma Unspecified asthma Hyperlipidemia Other and unspecified hyperlipidemia Need for Tdap vaccination Need for prophylactic vaccination with combined ldcnpzudgq-vbachlm-pwfcjqlfs (DTP) vaccine Abdominal discomfort Abdominal pain, unspecified [...] dose on Mon07/17/13 at 2100, Until Discontinued, RoutineIndications:Asthma,Hyperlipidemia,Need for Tdap vaccination,Abdominal discomfort,IBS (irritable bowel syndrome),GERD (gastroesophageal reflux disease) Given 07/17/2013 20:48 EDT 2 Puffs budesonide-formoterol HFA (SYMBICORT) 80-4.5 mcg/actuation inhaler 2 Puff 2 Puff, inhalation, 2 TIMES DAILY, First dose (after last modification) on [place] 07/18/13 at 0900, Until Discontinued, RoutineIndications:Asthma,Hyperlipidemia,Need for Tdap vaccination,Abdominal discomfort,IBS (irritable bowel syndrome),GERD (gastroesophageal reflux disease) Given 07/20/2013 8:41 EDT 2 Puffs Given [...] dose on Mon07/17/13 at 1830, Until Discontinued, RoutineIndications:Myalgia and myositis Given 07/20/2013 8:41 EDT 60 mg Given 07/19/2013 8:05 EDT 60 mg Given 07/18/2013 9:11 EDT 60 mg fluticasone (FLONASE) nasal spray 1 [place] 1 [place], nasal - both, DAILY, First dose on Mon07/17/13 at 1830, Until Discontinued, RoutineIndications:Asthma,Hyperlipidemia,Need for Tdap vaccination,Abdominal discomfort,IBS (irritable bowel syndrome),GERD (gastroesophageal reflux disease) Given 07/20/2013 8:41 EDT 1 [place] Given 07/19/2013 8:05 EDT 1 [place] Given 07/18/2013 9:08 EDT 1 [place] heparin injection 5,000 Units 5,000 Units, subcutaneous, [...] dose on Mon07/17/13 at 1830, Until Discontinued, RoutineIndications:Hyperlipidemia Given 07/20/2013 8:42 EDT 10 mg Given [...] dose on Mon07/17/13 at 2100, Until Discontinued, RoutineIndications:Hypertension Given 07/20/2013 8:42 EDT 25 mg Given [...] First dose on Mon07/17/13 at 2100, Until DiscontinuedIndications:GERD (gastroesophageal reflux disease),Cough Given 07/20/2013 8:42 EDT 20 mg Given 07/19/2013 21:00 EDT 20 mg Given 07/19/2013 8:04 EDT 20 mg PEG 3350-Electrolytes (MIRALAX) packet 17 g 17 g, oral, DAILY, First dose on Mon07/17/13 at 1830, Until DiscontinuedIndications:Constipation Given 07/19/2013 8:04 EDT 17 g Given [...] Orlando RN)1804 (Given - Provider: Yonathan Menon RN)2334 (Given - Provider: Brook Fortune) 0708 (Given - Provider: Brook Fortune)1101 (Given - Provider: Ignacio Crandall, RON)1824 (Given - Provider: Yovana Pearson, RON)2304 (Given - Provider: Brook Fortune) 0605 (Given - Provider: Brook Fortune)1155 (Given - Provider: Ju Floyd, RON) budesonide-formoterol HFA (SYMBICORT) 80-4.5 mcg/actuation inhaler 2 Puff (CANCELED) 2 Puff, inhalation, 2 TIMES DAILY, First dose (after last modification) on [place] 07/18/13 at 0900, Until Discontinued, Routine 0908 (Given - Provider: Jeannie Orlando RN)2002 (Given - Provider: Brook Fortune) 08 (Given - Provider: Ignacio Crandall RN)210 (Given - Provider: Brook Fortune) 0841 (Given - Provider: Ju Floyd, RON) DULoxetine (CYMBALTA) capsule 60 mg (CANCELED) 60 mg, oral, DAILY, First dose on Mon07/17/13 at 1830, Until Discontinued, Routine 0911 (Given - Provider: Jeannie Orlando RN) 08 (Given - Provider: Ignacio Crandall RN) 0841 (Given - Provider: Ju Floyd, RON) fluticasone (FLONASE) nasal spray 1 [place] (CANCELED) 1 [place], nasal - both, DAILY, First dose on Mon07/17/13 at 1830, Until Discontinued, Routine 0908 (Given - Provider: Jeannie Orlando RN) 08 (Given - Provider: Ignacio Crandall RN) 0841 (Given - Provider: Ju Floyd, RON) heparin injection 5,000 Units (CANCELED) 5,000 Units, subcutaneous, EVERY 12 HOURS, First dose on Mon07/17/13 at 2100, Until Discontinued, Routine, On Unit 1056 (Given - Provider: Frederick Nuñez, RN)2002 (Given - Provider: Brook Fortune) 08 (Given - Provider: Ignacio Crandall, RN)2099 (Given - Provider: Brook Fortune) 0841 (Given - Provider: Ju Floyd, RON) levofloxacin (LEVAQUIN) tablet 500 mg 500 mg, [...] 0842 (Given - Provider: Ju Floyd, RON) lovastatin (MEVACOR) tablet 10 mg (CANCELED) 10 [...] parameters not met)1103 (Given - Provider: Frederick Nuñez, RON)2003 (Given - Provider: Brook Fortune) 08 (Given - Provider: Ignacio Crandall, RN)221 (Hold - Provider: Brook Fortune - Reason: Other - Comment: B/P 93/57. hold per MD Polanco) 0842 (Given - Provider: Ju Floyd, RN) metronidazole (FLAGYL) infusion 500 mg (CANCELED) 500 mg, intravenous, Administer over 30 Minutes, EVERY 8 HOURS, 40 doses, First dose (after last modification) on Mon07/18/13 at 0500, Last dose on Mon07/31/13 at 0500, Routine 0507 (Given - Provider: Kalpana Fuentes, RON) metroNIDAZOLE (FLAGYL) tablet 500 mg 500 mg, oral, EVERY 8 HOURS, 7 doses, First dose on Mon07/18/13 at 1600, Last dose on Mon07/20/13 at 1600, Routine 1708 (Given - Provider: Jeannie Orlando, RON) 0126 (Given - Provider: Brook Fortune)0805 (Given - Provider: Ignacio Crandall RN)1554 (Given - Provider: Yovana Pearson, RON)2303 (Given - Provider: Brook Fortune) 0842 (Given - Provider: Ju Floyd, RON) pantoprazole (PROTONIX) tablet 20 mg (CANCELED) 20 mg, oral, 2 TIMES DAILY, First dose on Mon07/17/13 at 2100, Until Discontinued 0911 (Given - Provider: Jeannie Orlando, RON)2003 (Given - Provider: Brook Fortune) 08 (Given - Provider: Ignacio Crandall, RON)2099 (Given - Provider: Brook Fortune) 0842 (Given - Provider: Ju Floyd, RON) PEG 3350-Electrolytes (MIRALAX) packet 17 g (CANCELED) 17 g, oral, DAILY, First dose on Mon07/17/13 at 1830, Until Discontinued 1057 (Given - Provider: Frederick Nuñez, RN) 0804 (Given - Provider: Ignacio Crandall, RON) 0842 (Hold - Provider: Ju Floyd, RON - Reason: Patient/family refused) Continuous Medication Order 07/18/2013 07/19/2013 07/20/2013 lactated ringers (LR) infusion (CANCELED) at 140 mL/hr, intravenous, CONTINUOUS, Starting on Mon07/17/13 at 1845, Until Shirley 07/18/13 at 1215, Routine 0325 (New Bag - Provider: Kalpana Fuentes, RN) PRN Medication Order 07/18/2013 07/19/2013 07/20/2013 [...] Pain, Routine 0705 (Given - Provider: Kalpana Fuentes, RON)2004 (Given - Provider: Brook Fortune) 1415 (Given - Provider: Ignacio Crandall RN)195 (Given - Provider: Brook Fortune) morphine injection 5-10 mg (CANCELED) 5-10 mg, intravenous, EVERY 4 HOURS PRN, Starting on Shirley 07/18/13 at 0014, Until Shirley 07/18/13 at 0406, Pain, Routine 0104 (Given - Provider: Kalpana Fuentes, RON)0159 (Given - Provider: Kalpana Fuentes, RON - Comment: Ok to per ) oxyCODONE (ROXICODONE) immediate release tablet 5-10 mg (CANCELED) 5-10 mg, oral, EVERY 4 HOURS PRN, Starting on Mon07/17/13 at 1813, Until Shirley 07/18/13 at 0406, Pain, Routine 0330 (Given - Provider: Kalpana Fuentes, RN) oxyCODONE (ROXICODONE) immediate release tablet 5-10 mg (CANCELED) 5-10 mg, oral, EVERY 2 HOURS PRN, Starting on Shirley 07/18/13 at 1115, Until 07/20/13 at 1545, Pain, Routine 1448 (Given - Provider: Jenanie Orlando, RN)1805 (Given - Provider: Yonathan Menon RN)2122 (Given - Provider: Brook Fortune)2334 (Given - Provider: Brook Fortune) 0126 (Given - Provider: Brook Fortune)0342 (Given - Provider: Brook Fortune)0708 (Given - Provider: Brook Fortune)0939 (Given - Provider: Ignacio Crandall, RON)1130 (Given - Provider: Ignacio Crandall, RN)1324 (Not Given - Provider: Ignacio Crandall RN - Reason: Other - Comment: Patient request morphine for dressing change.)1331 (Given - Provider: Ignacio Crandall RN)1554 (Given - Provider: Yovana Pearson, RON)1828 (Given - Provider: Yovana Pearson, RON)2100 (Given - Provider: Brook Fortune)2304 (Given - [...] Routine 0504 (Given - Provider: Kalpana Fuentes, RON)0911 (Given - Provider: Jeannie Orlando, RON)1107 (Given - Provider: Frederick Nuñez RN) PEG 3350-Electrolytes (MIRALAX) packet 17 g (CANCELED) 17 g, oral, PRN, Starting on Mon07/17/13 at 2311, Until 07/20/13 at 1545, Constipation, Routine 0625 (Given - Provider: Brook Fortune) traZODone (DESYREL) tablet 100 mg (CANCELED) 100 mg, oral, AT BEDTIME PRN, Starting on Mon07/17/13 at 1811, Until 07/20/13 at 1545, Sleep, Routine 0116 (Given - Provider: Kalpana Fuentes, RON)2334 (Given - Provider: Brook Fortune) 2303 (Given [...] 07/20/2013 documented in this encounter Care Teams Media Consultant Relationship Specialty Start Date End Date Remedios Mehta MD [address] [place] [phone] PCP - General 02/19/09 01/04/15 documented as of this encounter
--- OUTSIDE RECORDS SUMMARY | 2024-09-17 15:19 | XMS_ITS | Encounter Summary ---
Author Organization [facility] Address [address] [place] [address] Care Team Providers Care Head Start Teacher Name Role Phone Remedios Mehta MD Primary Care Provider [phone] Reason for Visit * Reason Onset Date Comments URI 08/27/2013 Asthma 08/27/2013 Encounter Details Date Type Department Care Team (Late st Contact Info) Description 08/27/[address] [address] Remedios Mehta MD [address] [place] [phone] URI; Asthma Social History Tobacco Use [...] evaluation this afternoon. * Telephone Encounter - Brook Weathers - 08/27/2013 1201 EDT Complaint: URI and [...] on filedocumented in this encounter Care Teams Head Start Teacher Relationship Specialty Start Date End Date Remedios Mehta MD [address] [place] [phone] PCP - General 02/19/09 01/04/15 documented as of this encounter
--- OUTSIDE RECORDS SUMMARY | 2024-09-17 15:19 | XMS_ITS | Encounter Summary ---
Author Organization [facility] Address [address] [place] [address] Care Team Providers Care Clinical Marketing Manager Name Role Phone Remedios Mehta MD Primary Care Provider [phone] None, Provider Primary Care Provider German PabonC Primary Care Provider [phone] Elly Ling NP Primary Care Provider [phone] Reason for Visit * Reason Comments Other Encounter Details Date Type Department Care Team (Late st Contact Info) Description 08/19/2013 [facility] Family Medicine [address] [address] Remedios Mehta MD [address] [place] [address] Other Social History Tobacco Use [...] Refills Last Filled Start Date End Date loratadine (CLARITIN) 10 mg tablet Take 1 [...] documented as of this encounter Care Teams Clinical Marketing Manager Relationship Specialty Start Date End Date Remedios Mehta MD [address] [place] [phone] PCP - General 02/19/09 01/04/15 None, Provider PCP - General 01/05/15 09/23/18 German Garzon, PALisbethC [address] [place] [phone] PCP - General 09/28/18 05/29/22 Elly Ling NP [address] [place] [address] PCP - General Family Medicine - Primary Care 05/30/22 documented as of this encounter
--- OUTSIDE RECORDS SUMMARY | 2024-09-17 15:19 | XMS_ITS | Encounter Summary ---
Author Organization [facility] Address [address] [place] [address] Care Team Providers Care Top Carrier Name Role Phone Remedios Mehta MD Primary Care Provider [phone] Reason for Visit * Reason Comments Cough productive cough x3 days - green sputum. Using nebulizer at home. c/o headache, 'achy all over'. Encounter Details Date Type Department Care Team (Late st Contact Info) Description 08/28/2013 13:30 EDT Office Visit [address] [address] Nathalia Mercer MD Asthma with [...] documented in this encounter Discharge Diagnoses Diagnosis 493.92 ASTHMA, UNSPECIFIED, WITH (ACUTE) EXACERBATION[ICD-9-CM] documented in this encounter Ordered Prescriptions Prescription Sig Dispense Quantity Refills Last Filled Start Date End Date predniSONE (DELTASONE) 20 mg tabletIndications: Asthma with exacerbation Take 20 mg today, then starting tomorrow morning take 40mg (2 tabs) for two days, then 20 mg (1 tab) for 2 days. Take with food. 7 Tab 0 08/28/2013 3 azithromycin (ZITHROMAX) 250 mg tablet Take 2 tablets (500 mg) on day 1, followed by 1 tablet (250 mg) once daily on days 2 through 5. 6 Tab 0 08/28/2013 3 documented in this encounter Progress Notes [...] 50 mcg/actuation nasal spray Active Instill 1 [place] into both nostrils daily. 1 Bottle 5 [...] bronchitis documented in this encounter Care Teams Top Carrier Relationship Specialty Start Date End Date Remedios Mehta MD [address] [place] [phone] PCP - General 02/19/09 01/04/15 documented as of this encounter
--- OUTSIDE RECORDS SUMMARY | 2024-09-17 15:20 | XMS_ITS | Encounter Summary ---
Author Organization [facility] Address [address] [place] [address] Care Team Providers Care Clerk Typist Name Role Phone Remedios Mehta MD Primary Care Provider [phone] Encounter Details Date Type Department Care Team (Late st Contact Info) Description 05/06/2013 Phlebotomy Only [facility] [address] [place] [address] Sales Stock Associate, Outpatient Arthropathy; Encounter for long-term (current) use of other medications; Hypercoagulable state (CMS-HCC) ([facility]) Social History Tobacco Use Types Packs/Day Years [...] Bala Veronica RN documented in this encounter Plan of [...] 05/06/2013 14:0 0 EDT 05/06/2013 14:40 EDT us Yovana Callejas MD HEMATOLOGY & PF4 ORDERAB LES Final Result [facility] [address] [place] [address] * HEMAGRAM (05/06/2013 14:00 EDT) WBC 8.43 4.0 - 12.4 K/cmm [facility] RBC 4.34 3.86 - 5.04 M/cmm [facility] Hemoglobin 13.3 11.6 - 15.2 gm/dl [facility] HCT 39.8 34.9 - 44.4 % [facility] MCV 92 81 - 98 fl [facility] MCH 30.7 26.7 - 33.3 pg [facility] MCHC 33.4 32.1 - 35.9 gm/dl [facility] PLT 285 141 - 320 K/cmm [facility] RDW-CV 12.6 11.7 - 14.6 % [facility] 05/06/2013 14:0 0 EDT 05/06/2013 14:40 EDT us Yovana Callejas MD HEMATOLOGY & PF4 ORDERAB LES Final Result [facility] [address] [place] [address] * (ABNORMAL) COMPREHENSIVE METABOLIC PANEL (CMP) (05/06/2013 14:00 EDT) Potassium 4.2 3.5 - 5.0 mEq/L [facility] Sodium 147(H) 136 - 145 mEq/L [facility] Chloride 105 96 - 110 mEq/L [facility] CO2 29 24 - 32 mEq/L [facility] Total Alkaline Phosphatase 73 38 - 126 U/L [facility] Bilirubin, Total 0.8 0.2 - 1.3 mg/dl [facility] AST 18 15 - 46 U/L [facility] ALT 33 9 - 52 U/L [facility] Albumin 4.9 3.4 - 4.9 g/dl [facility] Total Protein 7.7 6.5 - 8.3 g/dl [facility] Creatinine 0.67 0.52 - 1.04 mg/dl [facility] GFR, Calculated >60 >60 ml/min/1.7 3m2 [facility] BUN 24 10 - 26 mg/dl [facility] Calcium 10.2 8.5 - 10.5 mg/dl [facility] Calculated Calcium 9.7 8.5 - 10.5 mg/dl [facility] Glucose, Serum 89 70 - 100 mg/dl [facility] Fasting? Unknown [facility] Blood specimen (specimen) 05/06/2013 14:00 EDT 05/06/2013 14:40 EDT us Yovana Callejas MD CHEMISTRY & BLOOD GAS OR DERABLES Final Result [facility] [address] [place] [address] documented in this encounter Visit Diagnoses Diagnosis Arthropathy Arthropathy, unspecified, site unspecified Encounter for long-term (current) use of other medications Hypercoagulable state ([facility]) Primary hypercoagulable state documented in this encounter Care Teams Clerk Typist Relationship Specialty Start Date End Date Remedios Mehta MD [address] [place] [phone] PCP - General 02/19/09 01/04/15 documented as of this encounter
--- OUTSIDE RECORDS SUMMARY | 2024-09-17 15:20 | XMS_ITS | Encounter Summary ---
Author Organization [facility] Address [address] [place] [address] Care Team Providers Care Console Manager Name Role Phone Remedios Mehta MD Primary Care Provider [phone] Reason for Visit * Reason Comments Other Encounter Details Date Type Department Care Team (Late st Contact Info) Description 05/06/2013 [facility] Medicine [address] [address] Remedios Mehta MD [address] [place] [phone] Other Social History Tobacco Use Types [...] End Date HYDROcodone-acetam inophen (NORCO) 10-325 mg per tabletIndications: Acute upper back pain,Lower back pain,DJD (degenerative joint disease), cervical Take 1 Tab by mouth every 6 hours as needed for Pain for 28 days. DO NOT FILL PRIOR TO START DATE 112 Tab 0 05/06/2013 3 traZODone (DESYREL) 100 mg tablet TAKE ONE TO TWO TABLETS BY MOUTH AT BEDTIME NEEDED FOR SLEEP 56 Tab 1 05/06/2013 3 documented in this encounter Miscellaneous Notes * Telephone Encounter - Tania Nguyen - 05/06/2013 0955 EDT Medication(s) Requested: [place] trazodone Pharmacy: [facility] Last Refill Date: 04.01.13, 12.19.12 Last Visit [...] documented as of this encounter Care Teams Console Manager Relationship Specialty Start Date End Date Remedios Mehta MD [address] [place] [phone] PCP - General 02/19/09 01/04/15 documented as of this encounter
--- OUTSIDE RECORDS SUMMARY | 2024-09-17 15:20 | XMS_ITS | Encounter Summary ---
Author Organization [facility] Address [address] [place] [address] Care Team Providers Care Hostel Parent Name Role Phone Remedios Mehta MD Primary Care Provider [phone] Reason for Visit * Reason Comments Animal Bite Dog bite, right wris t. Broke skin and patient states it bled a bit. Bitten by own dog, dog is up to date on all shots. Tdap UTD ([id number]) Encounter Details Date Type Department Care Team (Late st Contact Info) Description 04/05/2013 10:30 EDT Office Visit [facility] Family Medicine [address] [address] Madhu Gomes MD [address] [place] [phone] Dog bite, hand (Primary Dx) [...] up todate on all shots. Tdap UTD ([id number]) HPI The patient reports that she was [...] (FLONASE) 50 mcg/actuation nasal spray Instill 1 [place] into both nostrils daily. 1 Bottle 5 [...] complication documented in this encounter Care Teams Hostel Parent Relationship Specialty Start Date End Date Remedios Mehta MD [address] [place] [phone] PCP - General 02/19/09 01/04/15 documented as of this encounter
--- OUTSIDE RECORDS SUMMARY | 2024-09-17 15:20 | XMS_ITS | Encounter Summary ---
Author Organization [facility] Address [address] [place] [address] Care Team Providers Care Russian Teacher Name Role Phone Remedios Mehta MD Primary Care Provider [phone] Reason for Visit * Reason Comments Follow-up Encounter Details Date Type Department Care Team (Late st Contact Info) Description 05/06/2013 13:00 EDT Office Visit [facility] Hematology & Oncology - [facility] [address] [place] [address] Minoo Messer NP [address] [facility], Level [address] [place] [address] Hypercoagulable state (CMS-HCC) (HCC-CMS) (Primary [...] 04/24/2013 1418 EDT documented in this encounter Mental Status [...] Reason for Visit: anticoagulation recommendations for upcoming ORIENTOR procedure in patient with known hypercoagulability Problem [...] 110, factor V Leiden negative, prothrombin gene 36184J negative, PTT 32. Protein S 118,?? b.?? [...] leg due to arthritis. She isundergoing a ORIENTOR procedure due to recurrence of a prior [...] procedure thromboprophylaxis. Plan: 1. DVT Prophylaxis for ORIENTOR procedure (hysteroscopy with D+C) scheduled May [address] Antoinette Schilling: a. Recommend Lovenox 60 mg SC once daily x 10 days post ORIENTOR procedure. Patient has been instructed to take [...] encounter Miscellaneous Notes * Scanned Note-Null - ASSOCIATE PROFESSOR OF BIOSTATISTICS, SCAN 2 - 05/21/2013 1150 EDT documented in this encounter Plan of Treatment Not on file documented as of this encounter Visit Diagnoses Diagnosis Hypercoagulable state ([facility])- Primary Primary hypercoagulable state documented [...] 05/06/2013 documented in this encounter Care Teams Russian Teacher Relationship Specialty Start Date End Date Remedios Mehta MD [address] [place] [phone] PCP - General 02/19/09 01/04/15 documented as of this encounter
--- OUTSIDE RECORDS SUMMARY | 2024-09-17 15:20 | XMS_ITS | Encounter Summary ---
Author Organization [facility] Address [address] [place] [address] Care Team Providers Care Director Business Intelligence Name Role Phone Remedios Mehta MD Primary Care Provider [phone] None, Provider Primary Care Provider German PabonC Primary Care Provider Elly Ling NP Primary Care Provider [phone] Reason for Visit * Reason Comments Other Encounter Details Date Type Department Care Team (Late st Contact Info) Description 03/27/2013 [facility] Family Medicine [address] [address] Remedios Mehta MD [address] [place] [phone] Other Social History Tobacco Use [...] as of this encounter Care Teams Director Business Intelligence Relationship Specialty Start Date End Date Remedios Mehta MD [address] [place] [phone] PCP - General 02/19/09 01/04/15 None, Provider PCP - General 01/05/15 09/23/18 German Garzon PA-C [address] [place] [phone] PCP - General 09/28/18 05/29/22 Elly Ling NP [address] [place] [address] PCP - General Family Medicine - Primary Care 05/30/22 documented as of this encounter
--- OUTSIDE RECORDS SUMMARY | 2024-09-17 15:20 | XMS_ITS | Encounter Summary ---
Author Organization [facility] Address [address] [place] [address] Care Team Providers Care Visual C Developer Name Role Phone Remedios Mehta MD Primary Care Provider [phone] Reason for Visit * Reason Onset Date Comments Pain 02/08/2013 Encounter Details Date Type Department Care Team (Late st Contact Info) Description 02/08/2013 Telephone [facility] Interventional Pain [address] [place], [place] [id number] Abundio Tubbs, DO [address] [facility] [address] [place], [place] [address] Pain Social History Tobacco Use Types Packs/Day [...] Bala Veronica RN documented in this encounter Miscellaneous Notes * Telephone Encounter - Ivy Rayo, RN - 02/08/2013 1500 EDT Returned call [...] on filedocumented in this encounter Care Teams Visual C Developer Relationship Specialty Start Date End Date Remedios Mehta MD [address] [place] [phone] PCP - General 02/19/09 01/04/15 documented as of this encounter
--- OUTSIDE RECORDS SUMMARY | 2024-09-17 15:20 | XMS_ITS | Encounter Summary ---
Author Organization [facility] Address [address] [place] [address] Care Team Providers Care Children'S Service Supervisor Name Role Phone Remedios Mehta MD Primary Care Provider [phone] Reason for Visit * Reason Onset Date Comments Appointment Related 05/06/2013 Encounter Details Date Type Department Care Team (Late st Contact Info) Description 05/06/2013 Telephone [facility] Cancer Center Hematology & Oncology - [facility] [address] [place] [address] Minoo Messer NP [address] [facility], [address] [place] [address] Appointment Related Social History Tobacco [...] on filedocumented in this encounter Care Teams Children'S Service Supervisor Relationship Specialty Start Date End Date Remedios Mehta MD [address] [place] [phone] PCP - General 02/19/09 01/04/15 documented as of this encounter
--- OUTSIDE RECORDS SUMMARY | 2024-09-17 15:20 | XMS_ITS | Encounter Summary ---
Author Organization [facility] Address [address] [place] [address] Care Team Providers Care Medical Asst Name Role Phone Remedios Mehta MD Primary Care Provider [phone] Encounter Details Date Type Department Care Team (Late st Contact Info) Description 03/05/2013 Results Only Imaging [facility] Family Medicine [address] [address] Remedios Mehta MD [address] [place] [phone] Social History Tobacco Use Types Packs/Day [...] interpretation and agree with the findings. us Remedios Mehta MD IMG MAMMOGRAPHY ORDERABLE S Final Result documented in this encounter Visit Diagnoses Not on filedocumented in this encounter Care Teams Medical Asst Relationship Specialty Start Date End Date Remedios Mehta MD [address] [place] [phone] PCP - General 02/19/09 01/04/15 documented as of this encounter
--- OUTSIDE RECORDS SUMMARY | 2024-09-17 15:20 | XMS_ITS | Encounter Summary ---
Author Organization [facility] Address [address] [place] [address] Care Team Providers Care Media Sales Consultant Name Role Phone Remedios Mehta MD Primary Care Provider +1 [phone] Encounter Details Date Type Department Care Team (Latest Contact Info) Description 06/05/2013 12:45 EDT - 06/05/2013 23:59 EDT Hospital Encounter [address] [address] Antoinette Schilling MD [address] [place] [address] Discharge Disposition: Home or Self [...] Answer Entry Date Author Yes 04/15/2010 17:15 Bala Smith RN documented in this encounter Medications at [...] bowel syndrome),GERD (gastroesophageal reflux disease) Instill 1 [place] into both nostrils daily. 1 Bottle 5 3 lubiprostone (AMITIZA) 24 mcg capsule Take 24 mcg by mouth as needed. 0 MULTIVITAMINS (MULTIVITAMIN ORAL) Take 1 Tab by mouth daily. acetaminophen (TYLENOL) 325 mg tablet Take 2 Tabs by mouth every 6 hours as needed for Pain. 3 03/17/20 14 acetaminophen (TYLENOL) 650 mg tablet Take 1 Tab by mouth every 4 hours as needed for Pain. 0 06/14/20 13 CLARITIN 10 mg tablet TAKE ONE TABLET BY MOUTH EVERY DAY 90 Each 1 3 08/19/20 13 duloxetine (CYMBALTA) 60 mg capsuleIndications: Myalgia and myositis Take 1 Cap by mouth daily. 30 Cap 11 2 10/15/20 13 enoxaparin (LOVENOX) 60 mg/0.6 mL injectionIndication s:Hypercoagulable state ([facility]IN [facility]) Inject 60 mg into the skin daily. START 06/12/13 30 Syringe 0 3 09/13/20 13 ferrous gluconate (FERGON) 324 mg (38 mg iron) tablet Take 1 Tab by mouth 2 times daily with breakfast and dinner. 40 Tab 2 3 06/14/20 13 ferrous gluconate (FERGON) 324 mg (38 mg iron) tablet Take 1 Tab by mouth 2 times daily with breakfast and dinner. 60 Tab 2 3 07/12/20 13 HYDROcodone-acetami nophen (LORTAB) 10-500 mg per tablet Take 1 Tab by mouth every 4 hours as needed for Pain for 28 days. 112 Tab 2 3 06/14/20 13 HYDROcodone-acetami nophen (NORCO) 10-325 mg per tablet Take 1 Tab by mouth every 6 hours as needed for Pain. 30 Tab 0 3 07/12/20 13 HYDROcodone-acetami nophen (NORCO) 10-325 mg per tabletIndications:A cute upper back pain,Lower back pain,DJD (degenerative joint disease), cervical Take 1 Tab by mouth every 6 hours as needed for Pain for 28 days. DO NOT FILL PRIOR TO START DATE 112 Tab 0 3 06/14/20 13 ketoconazole (NIZORAL) 2 % creamIndications:Ra sh [...] needed for Nausea. 12 Tab 0 3 06/14/20 13 ondansetron (ZOFRAN-ODT) 4 mg disintegrating tablet Take 1 Tab by mouth every 6 hours as needed for Nausea. 12 Tab 0 3 09/24/20 18 oxyCODONE (ROXICODONE) 5 mg immediate release tablet Take 1-2 Tabs by mouth every 3 hours as needed for Pain. 40 Tab 0 3 06/14/20 13 oxyCODONE (ROXICODONE) 5 mg immediate release tablet [...] Code Departure Means Destination Home or Self Usp documented in this encounter Plan of Treatment Not on file documented as of this encounter Procedures Procedure Name Priority Date/Time Associated Diagnosis Comments CT ABDOMEN, PELVIS W CONTRAST 07/17/2013 15:22 EDT TYPE AND SCREEN Routine 06/05/2013 15:23 EDT PRE-OP TYPE AND SCREEN Routine 08/07/201 3 12:54 EDT COMPLETE BLOOD COUNT Routine [...] interpretation and agree with the findings. us Denisha Topete MD IMG CT ORDERABLES Fi nal Result * TYPE AND SCREEN (06/05/2013 15:23 EDT) ABO AB [facility] Rh Factor Positive [facility] Antibody Screen Negative [facility] Comment:SPECIMEN WILL BE HEL D UNTIL 7841 ON 06/14/2013 06/05/2013 15:2 3 EDT us Provider Darryl JARVIS BLOOD BANK TESTS Final Resul t [facility] [address] [place] [address] * PRE-OP BLOOD BANK DRAW (06/05/2013 12:54 EDT) [facility] Pre-Op Blood Bank Lab Draw SPECIMEN RECEIVED ACCEPTABLE [facility] 06/05/2013 12:5 4 EDT 06/05/2013 13:58 EDT Antoinette Schilling MD BLOOD BANK TESTS Final Result [facility] [address] [place] [address] * COMPREHENSIVE METABOLIC PANEL (CMP) (06/05/2013 12:54 EDT) [facility] Potassium 4.4 3.5 - 5.0 mEq/L [facility] Sodium 141 136 - 145 mEq/L [facility] Chloride 105 96 - 110 mEq/L [facility] CO2 30 24 - 32 mEq/L [facility] Total Alkaline Phosphatase 82 38 - 126 U/L [facility] Bilirubin, Total 0.8 0.2 - 1.3 mg/dl [facility] AST 20 15 - 46 U/L [facility] ALT 41 9 - 52 U/L [facility] Albumin 4.2 3.4 - 4.9 g/dl [facility] Total Protein 6.6 6.5 - 8.3 g/dl [facility] Creatinine 0.69 0.52 - 1.04 mg/dl [facility] GFR, Calculated >60 >60 ml/min/1.7 3m2 [facility] BUN 19 10 - 26 mg/dl [facility] Calcium 9.5 8.5 - 10.5 mg/dl [facility] Calculated Calcium 9.7 8.5 - 10.5 mg/dl [facility] Glucose, Serum 92 70 - 100 mg/dl [facility] Fasting? No [facility] 06/05/2013 12:5 4 EDT 06/05/2013 13:58 EDT Antoinette Schilling MD CHEMISTRY & BLOOD GAS ORDERABLE S Final Result Performing Organization Address [facility] Co de Phone Number [facility] [address] [place] [address] * HEMAGRAM (06/05/2013 12:54 EDT) WBC 7.11 [...] EDT Antoinette Schilling MD HEMATOLOGY & PF4 ORDERABLES Fin al Result Performing Organization Address [facility] Co de Phone Number [facility] [address] [place] [address] documented in this encounter Visit Diagnoses Not on filedocumented in this encounter Care Teams Media Sales Consultant Relationship Specialty Start Date End Date Remedios Mehta MD [address] [place] [phone] PCP - General 02/19/09 01/04/15 documented as of this encounter
--- OUTSIDE RECORDS SUMMARY | 2024-09-17 15:20 | XMS_ITS | Encounter Summary ---
Author Organization [facility] Address [address] [place] [address] Care Team Providers Care Tattoo Technician Name Role Phone Remedios Mehta MD Primary Care Provider [phone] [phone] Reason for Visit * Reason Onset Date Comments Paperwork request 03/06/2013 Encounter Details Date Type Department Care Team (Late st Contact Info) Description 03/06/[address] [address] Remedios Mehta MD [address] [place] [phone] Paperwork request Social History Tobacco Use [...] * Telephone Encounter - Tessa Spears - 03/06/2013 1338 EDT Patient dropped off paperwork for disabled parking placard application Placed in providers CCA's folder. documented in this encounter Plan of Treatment Not on file documented as of this encounter Visit Diagnoses Not on filedocumented in this encounter Care Teams Tattoo Technician Relationship Specialty Start Date End Date Remedios Mehta MD [address] [place] [phone] PCP - General 02/19/09 01/04/15 documented as of this encounter
--- OUTSIDE RECORDS SUMMARY | 2024-09-17 15:20 | XMS_ITS | Encounter Summary ---
Author Organization [facility] Address [address] [place] [address] Care Team Providers Care Air Bag Builder Name Role Phone Remedios Mehta MD Primary Care Provider +1 -[phone] Reason for Visit * Reason Onset Date Comments Results 03/01/2013 Encounter Details Date Type Department Care Team (Late st Contact Info) Description 03/01/[address] [address] Remedios Mehta MD [address] [place] [phone] Results Social History Tobacco Use Types [...] filedocumented in this encounter Care Teams Air Bag Builder Relationship Specialty Start Date End Date Remedios Mehta MD [address] [place] [phone] PCP - General 02/19/09 01/04/15 documented as of this encounter
--- OUTSIDE RECORDS SUMMARY | 2024-09-17 15:20 | XMS_ITS | Encounter Summary ---
Author Organization [facility] Address [address] [place] [address] Care Team Providers Care Event Executive Name Role Phone Remedios Mehta MD Primary Care Provider +1 [phone] Encounter Details Date Type Department Care Team (Latest Contact Info) Description 04/23/2013 7:45 EDT - 04/23/2013 7:48 EDT Hospital Encounter [address] [address] Antoinette Schilling MD [address] [place] [address] Discharge Disposition: Home or Self [...] Bala Veronica RN documented in this encounter Medications at [...] 4 hours as needed for Pain. 04/20/2010 3 budesonide-formot den HFA (SYMBICORT) 80-4.5 mcg/actuation HFAA inhalerIndication s:Asthma,Hyperlip idemia,Need for Tdap vaccination,Abdom inal discomfort,IBS (irritable bowel syndrome),GERD (gastroesophageal reflux disease) Inhale 2 Puffs as directed 2 times daily. 1 Inhaler 5 07/16/2012 3 CLARITIN 10 mg tablet TAKE ONE TABLET BY MOUTH EVERY DAY 90 Each 1 12/25/2012 3 doxycycline (VIBRA-TABS) 100 mg tablet Take 1 Tab by mouth 2 times daily. 14 Tab 0 04/05/2013 3 duloxetine (CYMBALTA) 60 mg capsuleIndication s:Myalgia and myositis Take 1 Cap by mouth daily. 30 Cap 11 10/11/2012 3 etanercept (ENBREL) 50 mg/mL (0.98 mL) injectionIndicati ons:Acute upper back pain,Lower back pain,DJD (degenerative joint disease), cervical,DJD (degenerative joint disease), lumbar,Chronic low back pain,Cervical spondylosis,Fibro myalgia,Lumbosacr al spondylosis without myelopathy Inject 50 mg into the skin every 7 days. 3 fluocinonide (LIDEX) 0.05 % cream Apply to affect area(s) as directed. 60 g 3 03/23/2012 3 fluticasone (FLONASE) 50 mcg/actuation nasal sprayIndications: Asthma,Hyperlipid emia,Need for Tdap vaccination,Abdom inal discomfort,IBS (irritable bowel syndrome),GERD (gastroesophageal reflux disease) Instill 1 [place] into both nostrils daily. 1 Bottle 5 07/16/2012 3 HYDROcodone-aceta minophen (NORCO) 10-325 mg per tabletIndications :Acute upper back pain,Lower back pain,DJD (degenerative joint disease), cervical Take 1 Tab by mouth every 6 hours as needed for Pain for 28 days. DO NOT FILL PRIOR TO START DATE 112 Tab 0 04/01/2013 3 hydroxychloroquin e (PLAQUENIL) 200 mg tabletIndications :Arthropathy,Arth ritis Take 1 Tab by mouth 2 times daily. 60 Tab 5 01/30/2013 3 ketoconazole (NIZORAL) 2 % creamIndications: Rash Apply topically daily. Apply to affect area(s) as directed. 1 Tube 1 02/17/2010 1 lactobacillus rham. GG-inulin 10 billion cell -200 mg CpSPIndications:G ERD (gastroesophageal reflux disease),Bloating ,IBS (irritable bowel syndrome),Fibromy algia,Risk for falls,Asthma,Obes ity, Class II, BMI 35-39.9, with comorbidity,Hyper glycemia Take 1 Applicator by mouth daily. 1 Bottle 3 01/02/2013 3 lidocaine 5 % (LIDODERM) 5 %(700 mg/patch) patchIndications: Acute upper back pain,Lower back pain,DJD (degenerative joint disease), cervical Place 1 Patch onto the skin every 12 hours. 10 Patch 0 03/04/2013 3 lovastatin (MEVACOR) 10 mg tabletIndications :Hyperlipidemia,A sthma,Need for Tdap vaccination,Abdom inal discomfort,IBS (irritable bowel syndrome),GERD (gastroesophageal reflux disease) Take 1 Tab by mouth daily. 90 Tab 4 08/22/2012 3 meloxicam (MOBIC) 7.5 mg tablet Take 1 Tab by mouth daily. 30 Tab 2 04/01/2013 3 methotrexate 2.5 mg tabletIndications :Arthritis Take 6 Tabs by mouth once a week. 24 Each 11 06/04/2012 3 metoprolol (LOPRESSOR) 25 mg tabletIndications :Hypertension Take 1 Tab by mouth 2 times daily. 180 Tab 4 04/04/2012 3 omeprazole (PRILOSEC) 20 mg capsuleIndication s:GERD (gastroesophageal reflux disease),Cough Take 1 Cap by mouth 2 times daily. 60 Cap 2 01/31/2013 3 polyethylene glycol (GLYCOLAX) 17 gram/dose powderIndications :Constipation Take 17 g by mouth daily. 1 Bottle 3 03/04/2013 3 trazodone (DESYREL) 100 mg tabletIndications :Myalgia and myositis,Arthropa thy Take 2 Tabs by mouth. Take 1-2 tabs at bedtime for sleep as needed 56 Tab 1 12/19/2012 3 zafirlukast (ACCOLATE) 20 mg tablet TAKE ONE TABLET BY MOUTH TWICE A DAY 180 Tab 0 03/27/2013 3 documented as of this encounter Discharge Disposition Disposition Code Departure Means Destination Home or Self Care documented in this encounter Plan of Treatment Not on file documented as of this encounter Visit Diagnoses Not on filedocumented in this encounter Care Teams Event Executive Relationship Specialty Start Date End Date Remedios Mehta MD [address] [place] [phone] PCP - General 02/19/09 01/04/15 documented as of this encounter
--- OUTSIDE RECORDS SUMMARY | 2024-09-17 15:20 | XMS_ITS | Encounter Summary ---
Author Organization [facility] Address [address] [place] [address] Care Team Providers Care Aoc Airspace Control Officer Name Role Phone Remedios Mehta MD Primary Care Provider [phone] [phone] Encounter Details Date Type Department Care Team (Late st Contact Info) Description 05/06/2013 Results Only [facility] Rheumatology & Immunology - [facility] [address], [place] [id number] Yovana Callejas MD [address] [place] [address] [address] [place] [phone] Social History Tobacco Use Types Packs/Day [...] HEMATOLOGY & PF4 ORDERAB LES Final Result Performing Organization Address [facility] de Phone Number [facility] [address] [place] [address] * PROTIME (05/06/2013 14:00 EDT) Pro Time 11.4 9.5 - 13.1 secs [facility] I.N.R. 1.0 0.9 - 1.1 Ratio [facility] Comment: Moderate Intensity Coumadin INR = 2.0-3.0 Adjustments in anticoagulant therapy dose should be based upon the INR and NOT the Pro Time. 05/06/2013 14:0 0 EDT 05/06/2013 14:40 EDT us Yovana Callejas MD HEMATOLOGY & PF4 ORDERAB LES Final Result Performing Organization Address [facility] de Phone Number [facility] [address] [place] [address] * BILIRUBIN DIRECT/INDIRECT (05/06/2013 14:00 EDT) Conjugated Bilirubin 0.0 0.0 - 0.3 mg/dl [facility] Unconjugated Bilirubin 0.4 0.1 - 1.1 mg/dl [facility] 05/06/2013 14:0 0 EDT 05/06/2013 14:40 EDT Yovana Callejas MD CHEMISTRY & BLOOD GAS OR DERABLES Final Result Performing Organization Address [facility] Co de Phone Number [facility] [address] [place] [address] * MULTIPLE DOC ORDERS (05/06/2013 14:00 EDT) Multiple Doc Orders This report contains lab results ordered [facility] Comment: by another provider which were collected and processed simultaneously with the orders you requested. If you have any questions, please call Customer Service at [phone]. 05/06/2013 14:0 0 EDT 05/06/2013 14:40 EDT us Yovana Callejas MD CHEMISTRY & BLOOD GAS OR DERABLES Final Result Performing Organization Address [facility] Co de Phone Number [facility] [address] [place] [address] documented in this encounter Visit Diagnoses Not on filedocumented in this encounter Care Teams Aoc Airspace Control Officer Relationship Specialty Start Date End Date Remedios Mehta MD [address] [place] [phone] PCP - General 02/19/09 01/04/15 documented as of this encounter
--- OUTSIDE RECORDS SUMMARY | 2024-09-17 15:20 | XMS_ITS | Encounter Summary ---
Author Organization [facility] Address [address] [place] [address] Care Team Providers Care Trimmer Helper Name Role Phone Remedios Mehta MD Primary Care Provider + -[phone] Encounter Details Date Type Department Care Team (Late st Contact Info) Description 04/17/2013 20:10 EDT - 04/17/2013 23:59 EDT Hospital Encounter [facility] [address] [place], [place] [id number] Barney Kaiser MD [address] [place] [phone] Discharge Disposition: Auto Discharge Social History [...] bowel syndrome),GERD (gastroesophageal reflux disease) Instill 1 [place] into both nostrils daily. 1 Bottle 5 [...] on filedocumented in this encounter Care Teams Trimmer Helper Relationship Specialty Start Date End Date Remedios Mehta MD [address] [place] [phone] PCP - General 02/19/09 01/04/15 documented as of this encounter
--- OUTSIDE RECORDS SUMMARY | 2024-09-17 15:20 | XMS_ITS | Encounter Summary ---
Author Organization [facility] Address [address] [place] [address] Care Team Providers Care Retail Operations Specialist Name Role Phone Remedios Mehta MD Primary Care Provider +1 -[phone] Encounter Details Date Type Department Care Team (Latest Contact Info) Description 04/23/2013 11:40 EDT - 04/23/2013 23:59 EDT Hospital Encounter [facility] [address] [place], [place] [phone] Remedios Mehta MD [address] [place] [phone] Discharge Disposition: Auto Discharge Social History [...] bowel syndrome),GERD (gastroesophageal reflux disease) Instill 1 [place] into both nostrils daily. 1 Bottle 5 [...] filedocumented in this encounter Care Teams Retail Operations Specialist Relationship Specialty Start Date End Date Remedios Mehta MD [address] [place] [phone] PCP - General 02/19/09 01/04/15 documented as of this encounter
--- OUTSIDE RECORDS SUMMARY | 2024-09-17 15:20 | XMS_ITS | Encounter Summary ---
Author Organization [facility] Address [address] [place] [address] Care Team Providers Care Attorney Lawyer Name Role Phone Remedios Mehta MD Primary Care Provider +1 -[phone] Reason for Visit * Reason Onset Date Comments Physical Therapy 02/12/2013 Encounter Details Date Type Department Care Team (Late st Contact Info) Description 02/12/[address] [phone] Therapy, Physical Physical Therapy Social History Tobacco [...] * Telephone Encounter - Dayna Platt - 02/12/2013 1319 EDT [facility] PHYS[facility]ER[facility] [address] [place] [phone] Ms. Husain called to apologize for missing [...] filedocumented in this encounter Care Teams Attorney Lawyer Relationship Specialty Start Date End Date Remedios Mehta MD [address] [place] [phone] PCP - General 02/19/09 01/04/15 documented as of this encounter
--- OUTSIDE RECORDS SUMMARY | 2024-09-17 15:20 | XMS_ITS | Encounter Summary ---
Author Organization [facility] Address [address] [place] [address] Care Team Providers Care Manager Student Services Name Role Phone Remedios Mehta MD Primary Care Provider +1 -[phone] Reason for Visit * Reason Onset Date Comments Pain 02/12/2013 Returning Call 02/12/2013 Encounter Details Date Type Department Care Team (Late st Contact Info) Description 02/12/2013 Telephone [facility] Interventional Pain [address] [place] [address] Abundio Cormier, DO [address] [place] [address] [address] [place] [address] Pain; Returning Call Social History Tobacco Use [...] filedocumented in this encounter Care Teams Manager Student Services Relationship Specialty Start Date End Date Remedios Mehta MD [address] [place] [phone] PCP - General 02/19/09 01/04/15 documented as of this encounter
--- OUTSIDE RECORDS SUMMARY | 2024-09-17 15:20 | XMS_ITS | Encounter Summary ---
Author Organization [facility] Address [address] [place] [address] Care Team Providers Care Army Helicopter Pilot Name Role Phone Remedios Mehta MD Primary Care Provider +1 -[phone] Reason for Referral * Radiology Services (Routine/Next Available) - Closed Specialty Diagnoses / Procedures Referred By Joao proctor Referred To Contact Diagnoses Lumbosacral spondylosis without myelopathy Chronic low back pain Procedures L SPINE 4 OR MORE VIEWS Marylou Gentile PA-C Phone: tel: fax: Referral ID Status Reason Start Date Expiration Date Visits Re quested Visits Authorized [id number] Closed 04/01/2013 1 1 Reason for Visit * Reason Comments Back Pain Encounter Details Date Type Department Care Team (Late st Contact Info) Description 04/01/2013 11:00 EDT Office Visit [facility] Spine Program - [address] [address] Marylou Gentile PA-C [address] [place] [phone] Lumbosacral spondylosis without myelopathy (Primary Dx); [...] 04/01/2013 1121 EDT documented in this encounter Mental Status [...] when using heat packs. Last attempt at manager primary care was over 4 years ago with no [...] 04/15/2010 Right TKR ([place]) ??? Colonoscopy 2011 History Substance Use Topics ??? Smoking status: [...] (FLONASE) 50 mcg/actuation nasal spray Instill 1 [place] into both nostrils daily. 1 Bottle 5 [...] spine are collected today and show 5 [id number]-vrhqnol vertebrae with mild leftward curvature of the [...] encounter Miscellaneous Notes * Scanned Note-Null - ELECTRONIC ASSEMBLER GROUP LEADER, SCAN 2 - 04/10/2013 0803 EDT documented [...] fibroid uterus. Marylou Gentile PA-C [facility] MRI ORDERABLES Jessica l Result * L SPINE 4 OR MORE VIEWS [...] Marylou Gentile PA-C [facility] DIAGNOSTIC IMAGING ORDERABLES Final Result documented in this encounter Visit Diagnoses Diagnosis Lumbosacral spondylosis without myelopathy- Primary Arthropathy Arthropathy, unspecified, site unspecified Low back pain Lumbago Chronic low back pain Lumbago documented in this encounter Care Teams Army Helicopter Pilot Relationship Specialty Start Date End Date Remedios Mehta MD [address] [place] [phone] PCP - General 02/19/09 01/04/15 documented as of this encounter
--- OUTSIDE RECORDS SUMMARY | 2024-09-17 15:20 | XMS_ITS | Encounter Summary ---
Author Organization [facility] Address [address] [place] [address] Care Team Providers Care Route Vending Machine Servicer Name Role Phone Remedios Mehta MD Primary Care Provider +1 -[phone] Reason for Visit * Reason Comments Results mri results of back Encounter Details Date Type Department Care Team (Late st Contact Info) Description 04/29/2013 8:40 EDT Office Visit [facility]ology - [facility] [address] [place] [address] Yovana Callejas MD [address] [place] [address] [phone] Chronic low back pain (Primary [...] (FLONASE) 50 mcg/actuation nasal spray Instill 1 [place] into both nostrils daily. 1 Bottle 5 [...] right ??? Joint replacement 04/15/2010 Right TKR ([place]) ??? Colonoscopy 2011 REVIEW OF SYSTEMS: Yes [...] using in her right hand. 5/5 hand quality systems engineer Fluent speech which is easy to understand [...] documented as of this encounter Care Teams Route Vending Machine Servicer Relationship Specialty Start Date End Date Remedios Mehta MD [address] [place] [phone] PCP - General 02/19/09 01/04/15 documented as of this encounter
--- OUTSIDE RECORDS SUMMARY | 2024-09-17 15:20 | XMS_ITS | Encounter Summary ---
Author Organization [facility] Address [address] [place] [address] Care Team Providers Care Flexographic Press Plate Setter Name Role Phone Remedios Mehta MD Primary Care Provider [phone] None, Provider Primary Care Provider German PabonC Primary Care Provider [phone] Elly Ling NP Primary Care Provider Encounter Details Date Type Department Care Team (Late st Contact Info) Description 03/12/2013 Telephone [facility] Family Medicine [address] [address] Remedios Mehta MD [address] [place] [address] Social History Tobacco Use Types [...] Emily Gibson LPN - 03/15/2013 1157 EDT gloriaetn that paper work is finished and has been sent out * Telephone Encounter - Kathy Pollard - 03/12/2013 1439 EDT PAPER WORK DROPPED OF FOR DCF FOR DR. MEJIA TO FILL OUT AND MAIL IN PROVIDED ENVELOPE. documented in this encounter Plan of Treatment Not on file documented as of this encounter Visit Diagnoses Not on filedocumented in this encounter Additional Health Concerns Infection Onset Date Last Indicated Resolved Time Rule-Out C. difficile 2021 04/16/20212020 13:40 EDT C. difficile 04/16/2021 04/16/2021 06/15/2021 22:1 5 EDT documented as of this encounter Care Teams Flexographic Press Plate Setter Relationship Specialty Start Date End Date Remedios Mehta MD [address] [place] [phone] PCP - General 02/19/09 01/04/15 None, Provider PCP - General 01/05/15 09/23/18 German Garzon PA-C [address] [place] [address] PCP - General 09/28/18 05/29/22 Elly Ling NP [address] [place] [address] PCP - General Family Medicine - Primary Care 05/30/22 documented as of this encounter
--- OUTSIDE RECORDS SUMMARY | 2024-09-17 15:20 | XMS_ITS | Encounter Summary ---
Author Organization [facility] Address [address] [place] [address] Care Team Providers Care Public Relations Supervisor Name Role Phone Remedios Mehta MD Primary Care Provider [phone] Reason for Referral * Consult (Routine/Next Available) - Closed Specialty Diagnoses / Procedures Referred By Joao proctor Referred To Contact Pain Medicine Diagnoses Chronic low back pain Low back pain Lumbosacral spondylosis without myelopathy Marylou Gentile PA-C Phone: tel: fax: [facility] Interventional Pain [address] [place] [address] Phone: tel: fax: Referral ID Status Reason Start Date Expiration Date V isits Requested Visits Authorized [id number] Closed Specialty Services Required 04/24/2013 1 1 [...] Info) Description 04/24/2013 14:30 EDT Office Visit [facility] Spine Program [place] [address] Marylou Gentile PA-C [address] [place] [address] Lumbosacral spondylosis without myelopathy (Primary [...] Veronica RN documented in this encounter Discharge Disposition [...] when using heat packs. Last attempt at home visit field care manager was over 4 years ago with no [...] the lumbar spine dated 04/01/2013 showed 5 [id number]-ubg-hmomvxplguvifswq with a mild leftward curvature of thoracolumbar [...] Lumbago documented in this encounter Care Teams Public Relations Supervisor Relationship Specialty Start Date End Date Remedios Mehta MD [address] [place] [phone] PCP - General 02/19/09 01/04/15 documented as of this encounter
--- OUTSIDE RECORDS SUMMARY | 2024-09-17 15:20 | XMS_ITS | Encounter Summary ---
Author Organization [facility] Address [address] [place] [address] Care Team Providers Care Service Dog Trainer Name Role Phone Keshawn Mehta MD Primary Care Provider [phone] Encounter Details Date Type Department Care Team (Latest Contact Info) Description 05/13/2013 9:41 EDT - 05/13/2013 15:45 EDT Hospital Encounter [facility] Perioperative Services- [facility] [address] [place] [address] Antoinette Ambrose MD [address] [place] [address] Discharge Disposition: Home or Self [...] 05/10/2013 1320 EDT documented in this encounter Mental Status * Because of a physical, mental, or emotional condition, do you have serious difficulty concentrating, remembering, or making decisions? (5 years old or older) Answer Entry Date Author Yes 04/15/2010 17:15 EDT Bala Veronica RN documented in this encounter Discharge Instructions * [...] for Wheezing. 1 Box 1 08/25/2012 CALCIUM CARBONATE/VITAMI N D3 (CALCIUM WITH VITAMIN D ORAL) Take by mouth daily. lubiprostone (AMITIZA) 24 mcg capsule Take 24 mcg by mouth as needed. 09/27/2010 MULTIVITAMINS (MULTIVITAMIN ORAL) Take 1 Tab by mouth daily. acetaminophen (TYLENOL) 650 mg tablet Take 1 Tab by mouth every 4 hours as needed for Pain. 04/20/2010 3 budesonide-formo terol HFA (SYMBICORT) 80-4.5 mcg/actuation HFAA inhalerIndicatio ns:Asthma,Hyperl ipidemia,Need for Tdap vaccination,Abdo roque discomfort,IBS (irritable bowel syndrome),GERD (gastroesophagea l reflux disease) Inhale 2 Puffs as directed 2 times daily. 1 Inhaler 5 07/16/2012 3 CLARITIN 10 mg tablet TAKE ONE TABLET BY MOUTH EVERY DAY 90 Each 1 12/25/2012 3 duloxetine (CYMBALTA) 60 mg capsuleIndicatio ns:Myalgia and myositis Take 1 Cap by mouth daily. 30 Cap 11 10/11/2012 3 enoxaparin (LOVENOX) 60 mg/0.6 mL injection Inject 60 mg into the skin daily. START 8-12 hours AFTER 05/13/13 procedure 10 Syringe 0 05/13/2013 3 fluocinonide (LIDEX) 0.05 % cream Apply to affect area(s) as directed. 60 g 3 03/23/2012 3 fluticasone (FLONASE) 50 mcg/actuation nasal sprayIndications :Asthma,Hyperlip idemia,Need for Tdap vaccination,Abdo roque discomfort,IBS (irritable bowel syndrome),GERD (gastroesophagea l reflux disease) Instill 1 [place] into both nostrils daily. 1 Bottle 5 07/16/2012 3 HYDROcodone-acet aminophen (NORCO) 10-325 mg per tabletIndication s:Acute upper back pain,Lower back pain,DJD (degenerative joint disease), cervical Take 1 Tab by mouth every 6 hours as needed for Pain for 28 days. DO NOT FILL PRIOR TO START DATE 112 Tab 0 05/06/2013 3 ketoconazole (NIZORAL) 2 % creamIndications :Rash Apply topically daily. Apply to affect area(s) as directed. 1 Tube 1 02/17/2010 06/20/202 1 lovastatin (MEVACOR) 10 mg tabletIndication s:Hyperlipidemia ,Asthma,Need for Tdap vaccination,Abdo roque discomfort,IBS (irritable bowel syndrome),GERD (gastroesophagea l reflux disease) Take 1 Tab by mouth daily. 90 Tab 4 08/22/2012 3 meloxicam (MOBIC) 7.5 mg tablet Take 1 Tab by mouth daily. 30 Tab 2 04/01/2013 3 metoprolol (LOPRESSOR) 25 mg tabletIndication s:Hypertension Take 1 Tab by mouth 2 times daily. 180 Tab 4 04/04/2012 3 omeprazole (PRILOSEC) 20 mg capsuleIndicatio ns:GERD (gastroesophagea l reflux disease),Cough Take 1 Cap by mouth 2 times daily. 60 Cap 2 01/31/2013 3 polyethylene glycol (GLYCOLAX) 17 gram/dose powderIndication s:Constipation Take 17 g by mouth daily. 1 Bottle 3 03/04/2013 3 traZODone (DESYREL) 100 mg tablet TAKE ONE TO TWO TABLETS BY MOUTH AT BEDTIME NEEDED FOR SLEEP 56 Tab 1 05/06/2013 3 zafirlukast (ACCOLATE) 20 mg tablet TAKE [...] Villagran RN - 05/10/2013 1317 EDT Erika Don Pisanozackary has been instructed as follows regarding medication administration for the day of the scheduled procedure. Date of Surgery: 05/13/13 Instructions for Taking Medications Day of Surgery Medication Last Dose Hold DOS Take DOS traZODone (DESYREL) 100 mg tablet yes HYDROcodone-acetaminophen (NORCO) 10-325 mg per tablet Yes prn enoxaparin (LOVENOX) 60 mg/0.6 mL injection Post op meloxicam (MOBIC) 7.5 mg tablet 05/07/13 yes zafirlukast (ACCOLATE) 20 mg tablet yes [...] documented below Eliza Dennison MD 05/13/2013 11:22 Cosigned by Antoinette Ambrose MD at 05/13/2013 11:37 EDT Source Note - Tosinchuy MinooHEIDE - 05/06/2013 13:25 EDT Thrombosis & Hemostasis Program (THP) Follow Up Visit Date of Service: 05/06/2013 Reason for Visit: anticoagulation recommendations for upcoming TANK ERECTOR procedure in patient with known hypercoagulability Problem [...] 110, factor V Leiden negative, prothrombin gene 09378G negative, PTT 32. Protein S 118,?? b.?? [...] father has been in the MICU in [place] for several weeks with serious cardiac issues. [...] leg due to arthritis. She isundergoing a TANK ERECTOR procedure due to recurrence of a prior [...] procedure thromboprophylaxis. Plan: 1. DVT Prophylaxis for TANK ERECTOR procedure (hysteroscopy with D+C) scheduled May [address] Antoinette Ambrose: a. Recommend Lovenox 60 mg SC once daily x 10 days post TANK ERECTOR procedure. Patient has been instructed to take [...] documented in this encounter Procedure Notes * GROUP PRODUCT MANAGER, SCAN 2 - 05/16/2013 1324 EDTAssociated Order(s): ECG REPORT - SCANNED documented in this encounter Nursing Notes * GROUP PRODUCT MANAGER, SCAN 2 - 05/16/2013 1348 EDT documented in this encounter OR Notes * OR PreOp - GROUP PRODUCT MANAGER, SCAN 2 - 05/20/2013 1248 EDT * OR PreOp - GROUP PRODUCT MANAGER, SCAN 2 - 05/16/2013 1324 EDT * OR Surgeon - Antoinette Ambrose MD - 05/14/2013 1644 EDT OPERATIVE REPORT SERVICE DATE: 05/13/2013 PREOPERATIVE DIAGNOSIS: Postmenopausal bleeding. POSTOPERATIVE DIAGNOSIS: Postmenopausal bleeding with polypoid tissue. SURGEON: Antoinette Ambrose MD CAPTAIN ROOM SERVICE: Eliza Dennison MD PROCEDURE: Operative hysteroscopy with [...] PM / Antoinette Ambrose MD sn Confirmation: [id number] Dictation ID: [id number] * Anesthesia Procedure Notes - GROUP PRODUCT MANAGER, SCAN - 05/13/2013 1307 EDT * Anesthesia Preprocedure Evaluation - GROUP PRODUCT MANAGER, SCAN - 05/13/2013 1138 EDT documented in this encounter Miscellaneous Notes * Scanned Note-Null - GROUP PRODUCT MANAGER, SCAN 2 - 05/16/2013 1324 EDT * Scanned Note-Null - GROUP PRODUCT MANAGER, SCAN 2 - 05/16/2013 1324 EDT * [...] Note Date: 05/13/2013 Attending: Antoinette Ambrose MD Sas Programmer: Eliza Dennison MD Pre-op diagnosis: Post-menopausal bleeding [...] EDT Narrative 05/16/2013 13:51 EDT Procedure Note GROUP PRODUCT MANAGER, SCAN 2 - 05/16/2013 13:24 EDT us Scan 2 Hot Iron Worker PROCEDURE/MINOR SURGICAL OR DERABLES Final Result * SURGICAL PATHOLOGY (05/13/2013 14:10 EDT) Pathology Report: SURGICAL PATHOLOGY REPORT Reports generated via electronic interface contain original data; however they are lacking the format of the original report. Caution should be taken when reading/interpreting unformatted reports. Name: ? ERIKA HUSAIN ? Accession #: ? [id number] ? : ? 1960 (Age: 53) ??F ? Collect Date: ? 05/13/2013 ? Location: ? [facility] ? Receive Date: ? 05/13/2013 ? Provider: [...] due to marked fragmentation and crush artifact. Electrical Machinist sections of this case were reviewed at the intradepartmental consultation conference. This case was discussed with Dr. Ambrose on 05/17/2013. Dr. Frazier 05/15/2013 11:53 AM [...] 3 o'clock D. ??Polyp 11 o'clock E. ??EMC Clinical History: Postmenopausal bleeding Gross Description: A. [...] 05/13/2013 03:36 PM End of Report [facility] 05/13/2013 14:1 0 EDT 05/13/2013 14:10 EDT Antoinette Ambrose MD PATHOLOGY ORDERABLES Final Resu lt Performing Organization Address City/[facility] Co de Phone Number [facility] [address] [place] [address] * (ABNORMAL) GLUCOSE, GLUCOMETER (05/13/2013 10:33 EDT) Glucose, Fingerstick 114(H) 70 - 100 mg/dl [facility] [place] ID [id number] [facility] Comment:Test Performed by [facility] 05/13/2013 10:3 3 EDT 05/13/2013 10:36 EDT Antoinette Ambrose MD CHEMISTRY & BLOOD GAS ORDERABLE S Final Result Performing Organization Address [facility] de Phone Number [facility] [address] [place] [address] documented in this encounter Visit Diagnoses Not [...] Roxie Pandey RN)1333 (Given - Provider: Roxie Pandey, RON) oxyCODONE (ROXICODONE) immediate release tablet 5-15 [...] Date NOTIFY PPS PACU PATIENT DISCHARGE 1 013 NOTIFY PPS PATIENT ARRIVAL IN PACU 1 2012 Discharge Count Last Ordered Date First Orde red Date DISCHARGE PATIENT 1 05/13/2013 documented in this encounter Care Teams Service Dog Trainer Relationship Specialty Start Date End Date Keshawn Mehta MD [address] [place] [phone] PCP - General 02/19/09 01/04/15 documented as of this encounter
--- OUTSIDE RECORDS SUMMARY | 2024-09-17 15:20 | XMS_ITS | Encounter Summary ---
Author Organization [facility] Address [address] [place] [address] Care Team Providers Care Census Taker Name Role Phone Remedios Mehta MD Primary Care Provider [phone] Encounter Details Date Type Department Care Team (Late st Contact Info) Description 04/23/2013 Documentation Visit [facility] Rehabilitation Therapy - Medical Office Building [address] [place] [address] Nathalia Miranda, PT [address] [place] [address] Social History Tobacco Use Types Packs/Day Years [...] Entry Date Author Yes 04/15/2010 17:15 EDT aBla Veronica RN documented in this encounter Progress Notes * Nathalia Miranda - 04/23/2013 0825 EDT Opened in error documented in this encounter Plan of Treatment Not on file documented as of this encounter Visit Diagnoses Not on filedocumented in this encounter Care Teams Census Taker Relationship Specialty Start Date End Date Remedios Mehta MD [address] [place] [phone] PCP - General 02/19/09 01/04/15 documented as of this encounter
--- OUTSIDE RECORDS SUMMARY | 2024-09-17 15:20 | XMS_ITS | Encounter Summary ---
Author Organization [facility] Address [address] [place] [address] Care Team Providers Care Db2 Developer Name Role Phone Remedios Mehta MD Primary Care Provider [phone] Reason for Visit * Reason Comments Community Health Team Encounter Details Date Type Department Care Team (Late st Contact Info) Description 04/04/2013 Community Health Team [address], [address] [place] [address] Nelda Conley, RD [address] [place] [address] Social History Tobacco Use Types Packs/Day Years [...] Bala Veronica RN documented in this encounter Progress Notes * Shilpi Forte - 04/04/2013 1551 EDT ..Patient no showed/cancelled appointment with team members. Left two messages and sent letter for patient to reschedule with no response. Patient is on INACTIVE status with the [facility] Team. documented in this encounter Plan of Treatment Not on file documented as of this encounter Visit Diagnoses Not on filedocumented in this encounter Care Teams Db2 Developer Relationship Specialty Start Date End Date Remedios Mehta MD [address] [place] [phone] PCP - General 02/19/09 01/04/15 documented as of this encounter
--- OUTSIDE RECORDS SUMMARY | 2024-09-17 15:20 | XMS_ITS | Encounter Summary ---
Author Organization [facility] Address [address] [place] [address] Care Team Providers Care Grinder Setup Operator Name Role Phone Remedios Mehta MD Primary Care Provider [phone] Encounter Details Date Type Department Care Team (Late st Contact Info) Description 04/23/2013 Results Only [facility] Laboratory Services - [facility] ([facility]) [address] [place] [id number] Antoinette Schilling MD [address] [place] [address] Social History Tobacco Use Types [...] 04/23/2013 1 4:31 EDT 04/23/2013 14:31 EDT us Antoinette Schilling MD MICROBIOLOGY - GENERAL ORDERABL ES Final Result Performing Organization Address City/State[facility] Co de Phone Number [facility] [address] [place] [address] documented in this encounter Visit Diagnoses Not on filedocumented in this encounter Care Teams Grinder Setup Operator Relationship Specialty Start Date End Date Remedios Mehta MD [address] [place] [phone] PCP - General 02/19/09 01/04/15 documented as of this encounter
--- OUTSIDE RECORDS SUMMARY | 2024-09-17 15:20 | XMS_ITS | Encounter Summary ---
Author Organization [facility] Address [address] [place] [address] Care Team Providers Care Oceanic Sciences Professor Name Role Phone Remedios Mehta MD Primary Care Provider [phone] Reason for Visit * Reason Onset Date Comments Advice Only 02/07/2013 Encounter Details Date Type Department Care Team (Late st Contact Info) Description 02/07/2013 Telephone [facility] Interventional Pain [address] [place] [address] Abundio Tubbs, DO [address] [facility] [address] [place], [place] [phone] Advice Only Social History Tobacco Use Types [...] Notes * Telephone Encounter - Jaimee Schroeder [place] - 02/13/2013 1313 EDT APPT 03/06/13 on [...] on filedocumented in this encounter Care Teams Oceanic Sciences Professor Relationship Specialty Start Date End Date Remedios Mehta MD [address] [place] [phone] PCP - General 02/19/09 01/04/15 documented as of this encounter
--- OUTSIDE RECORDS SUMMARY | 2024-09-17 15:20 | XMS_ITS | Encounter Summary ---
Author Organization [facility] Address [address] [place] [address] Care Team Providers Care Telecommunications Field Engineer Name Role Phone Remedios Mehta MD Primary Care Provider [phone] Reason for Visit * Reason Onset Date Comments Appointment Related 02/12/2013 Pt. received a call from her pcp stating Dr. Pedersen wouldn't see her anymore and wants to know why, call pt. Encounter Details Date Type Department Care Team (Late st Contact Info) Description 02/12/2013 Telephone [facility] Gastroenterology - [facility] [address] [place] [address] David Pedersen MD Appointment Related (Pt. received [...] on filedocumented in this encounter Care Teams Telecommunications Field Engineer Relationship Specialty Start Date End Date Remedios Mehta MD [address] [place] [phone] PCP - General 02/19/09 01/04/15 documented as of this encounter
--- OUTSIDE RECORDS SUMMARY | 2024-09-17 15:20 | XMS_ITS | Encounter Summary ---
Author Organization [facility] Address [address] [place] [address] Care Team Providers Care Parking Technician Name Role Phone Keshawn Mehta MD Primary Care Provider [phone] Reason for Visit * Reason Comments Back Pain f/u needs med refill , issue to discuss Discuss Surgery having BRITTANY next week because of Grade 1 endometrial ca found on biopsy Encounter Details Date Type Department Care Team (Late st Contact Info) Description 06/05/2013 15:00 EDT Office Visit [address] [address] Keshawn Mehta MD [address] [place] [address] Asthma (Primary Dx); Cervical spondylosis [...] Refills Last Filled Start Date End Date fluticasone (FLONASE) 50 mcg/actuation nasal sprayIndications:A sthma,Hyperlipidem ia,Need for Tdap vaccination,Abdomi nal discomfort,IBS (irritable bowel syndrome),GERD (gastroesophageal reflux disease) Instill 1 [place] into both nostrils daily. 1 Bottle 5 06/05/2013 fluocinonide (LIDEX) 0.05 % cream Apply to affect area(s) as directed. 60 g 3 06/05/2013 budesonide-formote rol HFA (SYMBICORT) 80-4.5 mcg/actuation HFA Aerosol Inhaler inhalerIndications :Asthma,Hyperlipid emia,Need for Tdap vaccination,Abdomi nal discomfort,IBS (irritable bowel syndrome),GERD (gastroesophageal reflux disease) Inhale 2 Puffs as directed 2 times daily. 1 Inhaler 5 06/05/2013 HYDROcodone-acetam inophen (LORTAB) 10-500 mg per tablet Take 1 Tab by mouth every 4 hours as needed for Pain for 28 days. 112 Tab 2 06/05/2013 3 omeprazole (PRILOSEC) 20 mg capsuleIndications :GERD (gastroesophageal reflux disease),Cough Take 1 Cap by mouth 2 times daily. 60 Cap 5 06/05/2013 4 zafirlukast (ACCOLATE) 20 mg tablet Take 1 Tab by mouth 2 times daily. 180 Tab 5 06/05/2013 1 metoprolol (LOPRESSOR) 25 mg tabletIndications: Hypertension Take 1 Tab by mouth 2 times daily. 180 Tab 4 06/05/2013 8 documented in this encounter Progress Notes * [...] (FLONASE) 50 mcg/actuation nasal spray; Instill 1 [place] into both nostrils daily. Cervical spondylosis without [...] asthma Cervical spondylosis without myelopathy Uterine cancer ([facility]) Malignant neoplasm of uterus, part unspecified Hyperlipidemia Other and unspecified hyperlipidemia Need for Tdap vaccination Need for prophylactic vaccination with combined qhvwojjcdx-xekihkr-zpetiybvd (DTP) vaccine Abdominal discomfort Abdominal pain, unspecified [...] bowel syndrome),GERD (gastroesophageal reflux disease) Instill 1 [place] into both nostrils daily. Reorder 07/16/2012 06/05/2013 [...] documented as of this encounter Care Teams Parking Technician Relationship Specialty Start Date End Date Keshawn Mehta MD [address] [place] [phone] PCP - General 02/19/09 01/04/15 documented as of this encounter
--- OUTSIDE RECORDS SUMMARY | 2024-09-17 15:20 | XMS_ITS | Encounter Summary ---
Author Organization [facility] Address [address] [place] [address] Care Team Providers Care French Lecturer Name Role Phone Remedios Mehta MD Primary Care Provider [phone] Reason for Visit * Reason Onset Date Comments Medications Refill 05/14/2013 Encounter Details Date Type Department Care Team (Late st Contact Info) Description 05/14/[address] [address] Remedios Mehta MD [address] [place] [phone] Medications Refill Social History Tobacco Use [...] * Telephone Encounter - Brook Weathers - 05/16/2013 0858 EDT Spoke to pharmacy. They have no record of calling for this refill. * Telephone Encounter - Arlen Pollock - 05/14/2013 1354 EDT Medication(s) Requested: HYDROCODON ACETAMIN Pharmacy: [facility] Last Refill Date: 05.06 Last Visit Date: 04.05.13 Next Visit Date: 06/05/2013 Is patient out of medication? quan Pollock 05/14/2013 13:54 documented in this encounter Plan of Treatment Not on file documented as of this encounter Visit Diagnoses Diagnosis Acute upper back pain- Primary Pain in thoracic spine Lower back pain Lumbago DJD (degenerative joint disease), cervical Degeneration of cervical intervertebral disc documented in this encounter Care Teams French Lecturer Relationship Specialty Start Date End Date Remedios Mehta MD [address] [place] [phone] PCP - General 02/19/09 01/04/15 documented as of this encounter
--- OUTSIDE RECORDS SUMMARY | 2024-09-17 15:20 | XMS_ITS | Encounter Summary ---
Author Organization [facility] Address [address] [place] [address] Care Team Providers Care Motor Inspection Mechanic Name Role Phone Remedios Mehta MD Primary Care Provider [phone] Reason for Visit * Reason Onset Date Comments Back Pain 02/13/2013 Encounter Details Date Type Department Care Team (Late st Contact Info) Description 02/13/[address] [address] Remedios Mehta MD [address] [place] [phone] Back Pain Social History Tobacco Use [...] Date HYDROcodone-acetam inophen (NORCO) 10-325 mg per tablet [...] her pain. She placed a call to [facility] Rheaumatology, who in turn recommended she call [facility] Pain Clinic. That clinic was able to [...] documented as of this encounter Care Teams Motor Inspection Mechanic Relationship Specialty Start Date End Date Remedios Mehta MD [address] [place] [phone] PCP - General 02/19/09 01/04/15 documented as of this encounter
--- OUTSIDE RECORDS SUMMARY | 2024-09-17 15:20 | XMS_ITS | Encounter Summary ---
Author Organization [facility] Address [address] [place] [address] Care Team Providers Care Frame Bander Name Role Phone Remedios Mehta MD Primary Care Provider +1 -[phone] Encounter Details Date Type Department Care Team (Late st Contact Info) Description 03/27/[address] [address] Remedios Mehta MD [address] [place] [phone] Social History Tobacco Use Types Packs/Day [...] on filedocumented in this encounter Care Teams Frame Bander Relationship Specialty Start Date End Date Remedios Mehta MD [address] [place] [phone] PCP - General 02/19/09 01/04/15 documented as of this encounter
--- OUTSIDE RECORDS SUMMARY | 2024-09-17 15:20 | XMS_ITS | Encounter Summary ---
Author Organization [facility] Address [address] [place] [address] Care Team Providers Care Ada Accommodation Consultant Name Role Phone Remedios Mehta MD Primary Care Provider +1 -[phone] Reason for Referral * Consult, Test and Treat (Routine/Next Available) - Closed Specialty Diagnoses / Procedures Referred By Joao proctor Referred To Contact Physical Therapy Diagnoses DJD (degenerative joint disease), lumbar Lower back pain Acute upper back pain Remedios Mehta MD Phone: tel: fax: Referral ID Status Reason Start Date Expiration Date V isits Requested Visits Authorized [id number] Closed Specialty Services Required 03/04/2013 1 1 Question Answer Reason for Request: left shoulder pain - ?impingement; upper and lower back pain Comments Fridays best; late mornings also * Consult (Routine/Next Available) - Closed Specialty Diagnoses / Procedures Referred By Joao proctor Referred To Contact Orthopedic Surgery Diagnoses Lower back pain Acute upper back pain DJD (degenerative joint disease), cervical DJD (degenerative joint disease), lumbar Chronic low back pain Cervical spondylosis Remedios Mehta MD Phone: tel: fax: Marylou Gentile PA-C Phone: tel: fax: Referral ID Status Reason Start Date Expiration Date V isits Requested Visits Authorized [id number] Closed Specialty Services Required 03/04/2013 1 1 Question Answer Reason for Request: severe upper and low back pain Comments Severe, worsening back pain Reason for Visit * Reason Comments Follow-up Test results as well Pain Patient states in ar ms, back, legs. Leg Swelling On knees. Encounter Details Date Type Department Care Team (Late st Contact Info) Description 03/04/2013 12:15 EDT Office Visit [address] [address] Remedios Mehta MD [address] [place] [address] Acute upper back pain (Primary [...] 03/04/2013 1205 EDT documented in this encounter Mental Status [...] Est Avg Glucose No range found 128 [facility] Patient Instructions Back Care and Preventing Injuries: [...] Where can you learn more? Go to [email or web address].net/fahc Enter S810 in the search box to learn more about Back Care and Preventing Injuries: After Your Visit. ?? [id number] [employer]. Care instructions adapted under license by [facility], [facility]. This care instruction is for use with your licensed healthcare professional. If you have questions about a medical condition or this instruction, always ask your healthcare professional. [employer] disclaims any warranty or liability for your use of this information. Content Version: 9.2.250768; Last Revised: December 03, 2009 documented in this encounter Ordered Prescriptions Prescription Sig Dispense Quantity Refills Last Filled Start Date End Date polyethylene glycol (GLYCOLAX) 17 gram/dose powderIndications: Constipation Take 17 g by mouth daily. 1 Bottle 3 03/04/2013 09/13/2013 lidocaine 5 % (LIDODERM) 5 %(700 mg/patch) patchIndications:A cute upper back pain,Lower back pain,DJD (degenerative joint disease), cervical Place 1 Patch onto the skin every 12 hours. 10 Patch 0 03/04/2013 04/29/2013 HYDROcodone-acetam inophen (NORCO) 10-325 mg per tabletIndications: Acute upper back pain,Lower back pain,DJD (degenerative joint disease), cervical Take 1 Tab by mouth every 6 hours as needed for Pain. 112 Tab 0 03/04/2013 03/27/2013 documented in this encounter Progress Notes * Remedios Strong MD - 03/04/2013 9317 EDT Subjective: Patient ID: Cherelle Bettencourt is [...] (FLONASE) 50 mcg/actuation nasal spray Instill 1 [place] into both nostrils daily. 1 Bottle [...] may reflect changes made after this encounter. etanercept (ENBREL) 50 mg/mL (0.98 mL) injectionIndicatio ns:Acute upper back pain,Lower back pain,DJD (degenerative joint disease), cervical,DJD (degenerative joint disease), lumbar,Chronic low back pain,Cervical spondylosis,Fibrom yalgia,Lumbosacral spondylosis without myelopathy Inject 50 mg into the skin every 7 days. 05/06/2013 added in this encounter Care Teams Ada Accommodation Consultant Relationship Specialty Start Date End Date Remedios Mehta MD [address] [place] [phone] PCP - General 02/19/09 01/04/15 documented as of this encounter
--- OUTSIDE RECORDS SUMMARY | 2024-09-17 15:20 | XMS_ITS | Encounter Summary ---
Author Organization [facility] Address [address] [place] [address] Care Team Providers Care Fabrication And Layout Craftsman Name Role Phone Remedios Mehta MD Primary Care Provider +1 [phone] Reason for Visit * Reason Comments Back Pain buttocks pain Leg Pain left leg pain Encounter Details Date Type Department Care Team (Latest Contact Info) Description 03/06/2013 9:00 EDT Office Visit [facility] Interventional Pain [address] [place], [place] [phone] Abundio Tubbs, DO [address] [place] [address] [address] [place] [address] Neck pain (Primary Dx); Low back pain; [...] - Weight 100.7 kg (222 lb) 03/06/2013 09 EDT Height 152.4 cm (5') 03/06/2013 09 EDT Body Mass Index 43.36 03/06/2013 09 EDT documented in this encounter Mental Status * Because of a physical, mental, or emotional condition, do you have serious difficulty concentrating, remembering, or making decisions? (5 years old or older) Answer Entry Date Author Yes 04/15/2010 17:15 EDT Bala Veronica RN documented in this encounter Patient Instructions * Patient Instructions* Mak Soares RN - 03/06/2013 10:00 EDT [facility] [address] [address] Patient Instructions You have had your lumbar [...] NAME: Cherelle Husain : 1960 DOS: 03/06/2013 CNC SPECIALIST: Abundio Tubbs DO DIE DEVELOPER: N/A PROCEDURE: Lumbar epidural steroid injection (L5-S1) [...] Abundio Tubbs DO 03/06/2013 * Georgie Foster 03/06/2013 0005 EDT [facility] Rooming Note Does patient have a Transmission And Coordination Engineer? yes Is patient NPO? (Solids since midnight [...] encounter Miscellaneous Notes * Scanned Note-Null - TELEMARKETING FUNDRAISER, SCAN 2 - 03/08/2013 1244 EDT documented in this encounter Plan of Treatment Not on file documented as of this encounter Visit Diagnoses Diagnosis Neck pain- Primary Cervicalgia Low back pain Lumbago Chronic post-traumatic stress disorder Posttraumatic stress disorder Myalgia and myositis Mylagia and myositis, unspecified Pain of right leg Pain in limb documented in this encounter Care Teams Fabrication And Layout Craftsman Relationship Specialty Start Date End Date Remedios Mehta MD [address] [place] [phone] PCP - General 02/19/09 01/04/15 documented as of this encounter
--- OUTSIDE RECORDS SUMMARY | 2024-09-17 15:21 | XMS_ITS | Encounter Summary ---
Author Organization [facility] Address [address] [place] [address] Care Team Providers Care Wood Filler Name Role Phone Remedios Mehta MD Primary Care Provider [phone] [phone] Reason for Visit * Reason Onset Date Comments Results 01/16/2013 Encounter Details Date Type Department Care Team (Late st Contact Info) Description 01/16/2013 Telephone [facility] Interventional Pain [address] [place] [address] Jaimie Byrne RN Results Social [...] Jaimie Byrne RN - 01/16/2013 0845 EDT Message copied by JAIMIE BYRNE on MonJan 16, 2013 0845 ------ Message from: MARIANNE PAZ Created: Shanice Jan 15, 2013 1053 Regarding: results Contact: bilat Facet Diagnostic Block done on: 01/15/13 Provider: kye Levels: cerv one level Call back number: [phone] documented in this encounter Plan of Treatment Not on file documented as of this encounter Visit Diagnoses Not on filedocumented in this encounter Care Teams Wood Filler Relationship Specialty Start Date End Date Remedios Mehta MD [address] [place] [phone] PCP - General 02/19/09 01/04/15 documented as of this encounter
--- OUTSIDE RECORDS SUMMARY | 2024-09-17 15:21 | XMS_ITS | Encounter Summary ---
Author Organization [facility] Address [address] [place] [address] Care Team Providers Care Inspecting Engineer Name Role Phone Remedios Mehta MD Primary Care Provider [phone] -[phone] Reason for Visit * Reason Onset Date Comments Physical Therapy 01/09/2013 Encounter Details Date Type Department Care Team (Late st Contact Info) Description 01/09/[address] [phone] Therapy, Physical Physical Therapy Social History Tobacco [...] * Telephone Encounter - Dayna Platt - 01/09/2013 0730 EDT AQUATIC PHYSICAL THERAPY [address] [place] [address] Ms. Husain called to cancel today's 9:00 aquatic physical therapy appointment due to car problems.Date/time of next appointment has been confirmed. Dayna Platt 01/09/2013 7:30 documented in this encounter Plan of Treatment Not on file documented as of this encounter Visit Diagnoses Not on filedocumented in this encounter Care Teams Inspecting Engineer Relationship Specialty Start Date End Date Remedios Mehta MD [address] [place] [phone] PCP - General 02/19/09 01/04/15 documented as of this encounter
--- OUTSIDE RECORDS SUMMARY | 2024-09-17 15:21 | XMS_ITS | Encounter Summary ---
Author Organization [facility] Address [address] [place] [address] Care Team Providers Care Procurement Analyst Name Role Phone Remedios Mehta MD Primary Care Provider [phone] -[phone] Reason for Visit * Reason Comments Other Encounter Details Date Type Department Care Team (Late st Contact Info) Description 12/25/2012 [facility] Medicine [address] [address] Remedios Mehta MD [address] [place] [phone] Other Social History Tobacco Use Types [...] Refills Last Filled Start Date End Date CLARITIN 10 mg tablet TAKE ONE TABLET [...] documented as of this encounter Care Teams Procurement Analyst Relationship Specialty Start Date End Date Remedios Mehta MD [address] [place] [phone] PCP - General 02/19/09 01/04/15 documented as of this encounter
--- OUTSIDE RECORDS SUMMARY | 2024-09-17 15:21 | XMS_ITS | Encounter Summary ---
Author Organization [facility] Address [address] [place] [address] Care Team Providers Care Buffing Turner And Counter Name Role Phone Remedios Mehta MD Primary Care Provider [phone] -[phone] Reason for Visit * Reason Onset Date Comments Medications Refill 12/20/2012 Encounter Details Date Type Department Care Team (Late st Contact Info) Description 12/20/[address] [address] Remedios Mehta MD [address] [place] [phone] Medications Refill Social History Tobacco Use [...] Refills Last Filled Start Date End Date zafirlukast (ACCOLATE) 20 mg tabletIndications:A sthma,Hyperlipidemi a,Need for Tdap vaccination,Abdomin al discomfort,IBS (irritable bowel syndrome),GERD (gastroesophageal reflux disease) Take 1 Tab by mouth 2 times daily. 180 Tab 1 12/20/2012 03/27/2013 documented in this encounter Miscellaneous Notes * Telephone Encounter - Arlen Pollock - 12/20/2012 1615 EST Medication Requested - zafor;ilast NEEDS 90 DAY SUPPLY PER INS. Last Refill Date - 10.10 Last Visit Date - 2.4. Next Visit Date - 3.. Is patient out of medication? Yes documented in this encounter Plan of Treatment Not on file documented as of this encounter Visit Diagnoses Diagnosis Asthma- Primary Unspecified asthma Hyperlipidemia Other and unspecified hyperlipidemia Need for Tdap vaccination Need for prophylactic vaccination with combined phaixtmrij-exetidj-gjyrpsxaf (DTP) vaccine Abdominal discomfort Abdominal pain, unspecified [...] documented as of this encounter Care Teams Buffing Turner And Counter Relationship Specialty Start Date End Date Remedios Mehta MD [address] [place] [phone] PCP - General 02/19/09 01/04/15 documented as of this encounter
--- OUTSIDE RECORDS SUMMARY | 2024-09-17 15:21 | XMS_ITS | Encounter Summary ---
Author Organization [facility] Address [address] [place] [address] Care Team Providers Care Data Communications Engineer Name Role Phone Remedios Mehta MD Primary Care Provider [phone] [phone] Reason for Visit * Reason Comments Appointment Related Encounter Details Date Type Department Care Team (Late st Contact Info) Description 12/18/[address] [phone] Yuliana Barnhart, PT [address] [facility], [facility] [address] [place] [address] Appointment Related Social History Tobacco [...] on filedocumented in this encounter Care Teams Data Communications Engineer Relationship Specialty Start Date End Date Remedios Mehta MD [address] [place] [phone] PCP - General 02/19/09 01/04/15 documented as of this encounter
--- OUTSIDE RECORDS SUMMARY | 2024-09-17 15:21 | XMS_ITS | Encounter Summary ---
Author Organization [facility] Address [address] [place] [address] Care Team Providers Care Instrument Panel Assembler Name Role Phone Remedios Mehta MD Primary Care Provider [phone] -[phone] Reason for Visit * Reason Onset Date Comments Medications Refill 12/19/2012 Encounter Details Date Type Department Care Team (Late st Contact Info) Description 12/19/[address] [address] Remedios Mehta MD [address] [place] [phone] Medications Refill Social History Tobacco Use [...] Refills Last Filled Start Date End Date trazodone (DESYREL) 100 mg tabletIndications: Myalgia and myositis,Arthropat hy Take 2 Tabs by mouth. Take 1-2 tabs at bedtime for sleep as needed 56 Tab 1 12/19/2012 3 documented in this encounter Miscellaneous Notes * Telephone Encounter - Nathalia Ross - 12/19/2012 0916 EST Medication Requested - TRAZODONE 100MG Last Refill Date - 08.15.12 Last Visit Date - 2 Next Visit Date - 01.02.13 Is patient [...] documented as of this encounter Care Teams Instrument Panel Assembler Relationship Specialty Start Date End Date Remedios Mehta MD [address] [place] [phone] PCP - General 02/19/09 01/04/15 documented as of this encounter
--- OUTSIDE RECORDS SUMMARY | 2024-09-17 15:21 | XMS_ITS | Encounter Summary ---
Author Organization [facility] Address [address] [place] [address] Care Team Providers Care Affiliate Marketing Specialist Name Role Phone Remedios Mehta MD Primary Care Provider +1 -[phone] Reason for Referral * Other Type (Routine/Next Available) - Closed Specialty Diagnoses / Procedures [facility] Referred To Contact Diagnoses GERD (gastroesophageal reflux disease) Extrinsic asthma, unspecified Jessy Sky, RT Referral ID Status Reason Start Date Expiration Date V isits Requested Visits Authorized [id number] Closed Other 12/19/2012 1 1 Question Answer Medication to be Prior Authorized: omeprazole 20 mg, take 2 caps BID, Josue Andino in [place], , [place] Medicaid ID# [id number]? Comments The purpose of this consult request is to inform the scheduling staff that a medication needs to be prior-authorized before it is prescribed and/or administered. Reason for Visit * Reason Onset Date Comments Prior Auth, Medication 12/19/2012 prilosec BID dosing Encounter Details Date Type Department Care Team (Late st Contact Info) Description 12/19/2012 Orders Only [facility] Pulmonology & Critical Care - [facility] [address] [place], [place] [phone] Jessy Sky, RT GERD (gastroesophageal reflux disease) [...] unspecified documented in this encounter Care Teams Affiliate Marketing Specialist Relationship Specialty Start Date End Date Remedios Mehta MD [address] [place] [phone] PCP - General 02/19/09 01/04/15 documented as of this encounter
--- OUTSIDE RECORDS SUMMARY | 2024-09-17 15:21 | XMS_ITS | Encounter Summary ---
Author Organization [facility] Address [address] [place] [address] Care Team Providers Care Director Of Consumer Affairs Name Role Phone Remedios Mehta MD Primary Care Provider [phone] -[phone] Reason for Visit * Reason Comments Neck Pain Back Pain Encounter Details Date Type Department Care Team (Latest Contact Info) Description 01/15/2013 9:45 EDT Office Visit [facility] Interventional Pain [address] [place], [place] [phone] Abundio Tubbs, DO [address] [facility] [address] [place], [place] [address] Neck pain (Primary Dx); Headache Social History [...] ??F) 01/15/2013 0931 EDT Respiratory Rate 16 01/15/201331 EDT Oxygen Saturation - - Inhaled Oxygen Concentration - - Weight 97.1 kg (214 lb) 01/15/2013930 EDT Height 152.4 cm (5') 01/15/2013 09 EDT Body Mass Index 41.79 01/15/2013 0931 EDT documented in this encounter Mental Status * Because of a physical, mental, or emotional condition, do you have serious difficulty concentrating, remembering, or making decisions? (5 years old or older) Answer Entry Date Author Yes 04/15/2010 17:15 EDT Bala Veronica RN documented in this encounter Patient Instructions * Patient Instructions* Charlette Donis RN - 01/15/2013 10:25 EDT [facility] [place] [address] Patient Instructions You have had your bilateral [...] NAME: Cherelle Husain : 1960 DOS: 01/15/2013 COMPLIANCE MANAGER: Abundio Tubbs DO MEDICAL BILLING SPECIALIST: N/A PROCEDURE: Cervical facet joint injecgtion, C3-C4 [...] Charlette Donis RN - 01/15/2013 0938 EDT [facility] Rooming Note Does patient have a Applications Engineering Manager? yes Is patient NPO? (Solids since midnight [...] encounter Miscellaneous Notes * Scanned Note-Null - RIVET BUCKER, SCAN 2 - 01/16/2013 1301 EDT documented in this encounter Plan of Treatment Not on file documented as of this encounter Visit Diagnoses Diagnosis Neck pain- Primary Cervicalgia Headache(784.0) Headache documented in this encounter Care Teams Director Of Consumer Affairs Relationship Specialty Start Date End Date Remedios Mehta MD [address] [place] [phone] PCP - General 02/19/09 01/04/15 documented as of this encounter
--- OUTSIDE RECORDS SUMMARY | 2024-09-17 15:21 | XMS_ITS | Encounter Summary ---
Author Organization [facility] Address [address] [place] [address] Care Team Providers Care Insulation Cupola Charger Name Role Phone Remedios Mehta MD Primary Care Provider +1 -[phone] Reason for Visit * Reason Onset Date Comments Medication Questions 02/07/2013 Encounter Details Date Type Department Care Team (Late st Contact Info) Description 02/07/2013 Telephone [facility] Rheumatology & Immunology - [facility] [address] [place] [address] Yovana Callejas MD [address] [place] [address] [phone] Medication Questions Social History Tobacco [...] has a friend that is going to animal care giver her the first injection and she will call us to set up a teaching when her back pain is improved. * Telephone Encounter - [place] Melvin - 02/07/2013 1408 EDT Pt does not know when to start her injections because she took her Cymbalta and methotrexate and onMonday and her Enbrel came in the mail on Monday. Pt is requesting a call back from a nurse. documented in this encounter Plan of Treatment Not on file documented as of this encounter Visit Diagnoses Not on filedocumented in this encounter Care Teams Insulation Cupola Charger Relationship Specialty Start Date End Date Remedios Mehta MD [address] [place] [phone] PCP - General 02/19/09 01/04/15 documented as of this encounter
--- OUTSIDE RECORDS SUMMARY | 2024-09-17 15:21 | XMS_ITS | Encounter Summary ---
Author Organization [facility] Address [address] [place] [address] Care Team Providers Care Consulting Systems Engineer Name Role Phone Remedios Mehta MD Primary Care Provider +1 [phone] Encounter Details Date Type Department Care Team (Latest Contact Info) Description 01/04/2013 13:37 EST - 01/04/2013 23:59 EST Hospital Encounter [facility] - Other [address] [place], [place] [address] Remedios Mehta MD [address] [place] [phone] Discharge Disposition: Home or Self Care [...] mouth daily. 30 Cap 11 10/11/2012 3 fluocinonide (LIDEX) 0.05 % cream Apply to affect area(s) as directed. 60 g 3 03/23/2012 3 fluticasone (FLONASE) 50 mcg/actuation nasal sprayIndications :Asthma,Hyperlip idemia,Need for Tdap vaccination,Abdo roque discomfort,IBS (irritable bowel syndrome),GERD (gastroesophagea l reflux disease) Instill 1 [place] into both nostrils daily. 1 Bottle 5 07/16/2012 3 hydrocodone-acet aminophen (LORTAB) 5-500 mg tabletIndication s:Arthritis Take 1 Tab by mouth every 6 hours as needed for Pain (up to 4 pills a day). 120 Tab 3 12/03/2012 3 hydroxychloroqui ne (PLAQUENIL) 200 mg tabletIndication s:Arthropathy,Ar thritis Take 1 Tab by mouth 2 times daily. 60 Tab 11 06/04/2012 3 ketoconazole (NIZORAL) 2 % creamIndications :Rash Apply topically daily. Apply to affect area(s) as directed. 1 Tube 1 02/17/2010 1 lactobacillus rham. GG-inulin 10 billion cell -200 mg CpSPIndications: GERD (gastroesophagea l reflux disease),Bloatin g,IBS (irritable bowel syndrome),Fibrom yalgia,Risk for falls,Asthma,Obe sity, Class II, BMI 35-39.9, with comorbidity,Hype rglycemia Take 1 Applicator by mouth daily. 1 Bottle 3 01/02/2013 3 lovastatin (MEVACOR) 10 mg tabletIndication s:Hyperlipidemia ,Asthma,Need for Tdap vaccination,Abdo roque discomfort,IBS (irritable bowel syndrome),GERD (gastroesophagea l reflux disease) Take 1 Tab by mouth daily. 90 Tab 4 08/22/2012 3 methotrexate 2.5 mg tabletIndication s:Arthritis Take 6 Tabs by mouth once a week. 24 Each 11 06/04/2012 3 metoprolol (LOPRESSOR) 25 mg tabletIndication s:Hypertension Take 1 Tab by mouth 2 times daily. 180 Tab 4 04/04/2012 3 omeprazole (PRILOSEC) 20 mg capsule Once daily before a meal. 30 Cap 11 12/27/2012 3 trazodone (DESYREL) 100 mg tabletIndication s:Myalgia and myositis,Arthrop athy Take 2 Tabs by mouth. Take 1-2 tabs at bedtime for sleep as needed 56 Tab 1 12/19/2012 3 zafirlukast (ACCOLATE) 20 mg tabletIndication s:Asthma,Hyperli pidemia,Need for Tdap vaccination,Abdo roque discomfort,IBS (irritable bowel syndrome),GERD (gastroesophagea l reflux disease) Take 1 Tab by mouth 2 times daily. 180 Tab 1 12/20/2012 3 documented as of this encounter Discharge Disposition Disposition Code Departure Means Destination Home or Self Long-Term documented in this encounter Plan of Treatment Not on file documented as of this encounter Visit Diagnoses Not on filedocumented in this encounter Care Teams Consulting Systems Engineer Relationship Specialty Start Date End Date Remedios Mehta MD [address] [place] [phone] PCP - General 02/19/09 01/04/15 documented as of this encounter
--- OUTSIDE RECORDS SUMMARY | 2024-09-17 15:21 | XMS_ITS | Encounter Summary ---
Author Organization [facility] Address [address] [place] [address] Care Team Providers Care Legal Referee Name Role Phone Remedios Mehta MD Primary Care Provider +1 -[phone] Reason for Visit * Reason Comments Community Health Team Encounter Details Date Type Department Care Team (Late st Contact Info) Description 12/31/2012 Community Health Team [address], [address] [place] [address] Nelda Conley, RD [address] [place] [address] Social History Tobacco Use Types Packs/Day Years [...] documented in this encounter Progress Notes * Nelda Conley [...] on filedocumented in this encounter Care Teams Legal Referee Relationship Specialty Start Date End Date Remedios Mehta MD [address] [place] [phone] PCP - General 02/19/09 01/04/15 documented as of this encounter
--- OUTSIDE RECORDS SUMMARY | 2024-09-17 15:21 | XMS_ITS | Encounter Summary ---
Author Organization [facility] Address [address] [place] [address] Care Team Providers Care Glove Former Name Role Phone Remedios Mehta MD Primary Care Provider +1 -[phone] Reason for Visit * Reason Onset Date Comments Gastroesophageal Reflux 01/30/2013 Encounter Details Date Type Department Care Team (Late st Contact Info) Description 01/30/2013 Telephone [facility] Pulmonology & Critical Care - [facility] [address] [place] [address] [address] [place] [address] Gastroesophageal Reflux Social History Tobacco Use Types [...] Date End Date omeprazole (PRILOSEC) 20 mg capsuleIndications :GERD (gastroesophageal reflux disease),Cough Take 1 Cap by mouth 2 times daily. Once daily before a meal. 60 Cap 2 01/31/2013 01/31/2013 omeprazole (PRILOSEC) 20 mg capsuleIndications :GERD (gastroesophageal reflux disease),Cough Take 1 Cap by mouth 2 times daily. 60 Cap 2 01/31/2013 06/05/2013 omeprazole (PRILOSEC) 20 mg capsuleIndications :GERD (gastroesophageal reflux disease),Cough Take 1 Cap by mouth 2 times daily. Once daily before a meal. 30 Cap 2 01/31/2013 01/31/2013 documented in this encounter Miscellaneous Notes * Telephone Encounter - Roxie Morrell RT - 01/31/2013 1147 EDT Left message [...] documented as of this encounter Care Teams Glove Former Relationship Specialty Start Date End Date Remedios Mehta MD [address] [place] [phone] PCP - General 02/19/09 01/04/15 documented as of this encounter
--- OUTSIDE RECORDS SUMMARY | 2024-09-17 15:21 | XMS_ITS | Encounter Summary ---
Author Organization [facility] Address [address] [place] [address] Care Team Providers Care Seed Technician Name Role Phone Remedios Mehta MD Primary Care Provider +1 -[phone] Reason for Referral * Other Type (Routine/Next Available) - Closed Specialty Diagnoses / Procedures [facility] Referred To Contact Diagnoses Encounter for long-term (current) use of other medications Psoriatic arthropathy ([facility]) Yovana Callejas MD Phone: tel: fax: Referral ID Status Reason Start Date Expiration Date V isits Requested Visits Authorized [id number] Closed Other 01/23/2013 1 1 Question Answer [...] Info) Description 01/23/2013 11:20 EDT Office Visit [facility] Rheumatology & Immunology - Main [place] [address] [place] [address] Yovana Callejas MD [address] [place] [address] [address] [place] [address] Psoriatic arthropathy ([facility]) (Primary Dx); Encounter for long-term (current) use [...] 01/23/2013 1126 EDT documented in this encounter Mental Status [...] Notes * Yovana Callejas MD - 01/23/2013 8043 EDT Division of Rheumatology and Clinical Immunology [...] (FLONASE) 50 mcg/actuation nasal spray Instill 1 Only into both nostrils daily. 1 Bottle 5 [...] 04/15/2010 Right TKR ([facility]) ??? 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) Ordered: 01/23/2013 documented as of this encounter Procedures Procedure Name Priority Date/Time Associated Diagnosis Comments PLACE PPD Routine 01/25/2013 15:35 EDT Psoriatic arthropathy ([facility]) Encounter for long-term (current) use of other medications documented in this encounter Results * PLACE PPD (01/25/2013 15:35 EDT) TB Skin Test 0.1ML POINT OF CARE Induration 0 MM POINT OF CARE 01/25/2013 15:3 5 EDT us Yovana Callejas MD POINT OF CARE TEST ORDER ONELIA Final Result POINT OF CARE * HEPATITIS C ANTIBODY (01/23/2013 12:44 EDT) Hepatitis C Ab Negative [facility] Comment:Reference Range: Neg ative Blood specimen (specimen) 01/23/2013 12:44 EDT 01/23/2013 13:08 EDT Yovana Callejas MD CHEMISTRY & BLOOD GAS OR DERABLES Final Result Performing Organization Address [facility] de Phone Number [facility] [address] [place] [address] * HEPATITIS B CORE ANTIBODY (01/23/2013 12:44 EDT) Hep B Core Ab Negative [facility] Comment: Reference Range: ??Negative Interpretation depends on clinical setting. Blood specimen (specimen) 01/23/2013 12:44 EDT 01/23/2013 13:08 EDT Yovana Callejas MD CHEMISTRY & BLOOD GAS OR DERABLES Final Result Performing Organization Address [facility] de Phone Number [facility] [address] [place] [address] * HEPATITIS B SURFACE ANTIBODY (01/23/2013 12:44 EDT) Hepatitis B Surface Ab Negative [facility] Comment: Reference Range: Unvaccinated: ??Negative Vaccinated: ??Positive HBs Antibody, Quant <5.0 mIU/mL [facility] Comment: Patient is presumed to not be immune to infection with HBV. Reference Range: Positive: >=12.0 mIU/mL Indeterminate: >=5.0 to <12.0 mIU/mL Negative: <5.0 mIU/mL Blood specimen (specimen) 01/23/2013 12:44 EDT 01/23/2013 13:08 EDT Yovana Callejas MD CHEMISTRY & BLOOD GAS OR DERABLES Final Result Performing Organization Address [facility] Co de Phone Number [facility] [address] [place] [address] * HEPATITIS B SURFACE ANTIGEN (01/23/2013 12:44 EDT) Hepatitis B Surface Ag Negative [facility] Comment:Reference Range: Neg ative Blood specimen (specimen) 01/23/2013 12:44 EDT 01/23/2013 13:08 EDT us Yovana Callejas MD CHEMISTRY & BLOOD GAS OR DERABLES Final Result [facility] [address] [place] [address] documented in this encounter Visit Diagnoses Diagnosis Psoriatic arthropathy ([facility])- Primary Psoriatic arthropathy Encounter for long-term (current) use of other medications Screening examination for pulmonary tuberculosis documented in this encounter Care Teams Seed Technician Relationship Specialty Start Date End Date Remedios Mehta MD [address] [place] [phone] PCP - General 02/19/09 01/04/15 documented as of this encounter
--- OUTSIDE RECORDS SUMMARY | 2024-09-17 15:21 | XMS_ITS | Encounter Summary ---
Author Organization [facility] Address [address] [place] [address] Care Team Providers Care Last Repairer Name Role Phone Remedios Mehta MD Primary Care Provider +1 [phone] Reason for Visit * Reason Onset Date Comments Medications Refill 11/26/2012 Encounter Details Date Type Department Care Team (Late st Contact Info) Description 11/26/2012 Refill [facility] Rheumatology & Immunology - [place] [address] [place] [address] Ana Laura Edge RN Medications Refill Social [...] Refills Last Filled Start Date End Date hydrocodone-acetam inophen (LORTAB) 5-500 mg tabletIndications: Arthritis Take 1 Tab by mouth every 6 [...] documented as of this encounter Care Teams Last Repairer Relationship Specialty Start Date End Date Remedios Mehta MD [address] [place] [phone] PCP - General 02/19/09 01/04/15 documented as of this encounter
--- OUTSIDE RECORDS SUMMARY | 2024-09-17 15:21 | XMS_ITS | Encounter Summary ---
Author Organization [facility] Address [address] [place] [address] Care Team Providers Care Medical Center Director Name Role Phone Remedios Mehta MD Primary Care Provider +1 -[phone] Reason for Visit * Reason Onset Date Comments Physical Therapy 01/24/2013 Encounter Details Date Type Department Care Team (Late st Contact Info) Description 01/24/[address] [id number] Therapy, Physical Physical Therapy Social History Tobacco [...] * Telephone Encounter - Dayna Platt - 01/24/2013 1157 EDT AQUATIC PHYSICAL THERAPY [address] [place] [phone] Ms. Husain was called to an aquatic therapy appointment for Monday01/25/13 @2pm. A message was left on her answering machine with our phone number to call. Dayna Platt 01/24/2013 11:57 documented in this encounter Plan of Treatment Not on file documented as of this encounter Visit Diagnoses Not on filedocumented in this encounter Care Teams Medical Center Director Relationship Specialty Start Date End Date Remedios Mehta MD [address] [place] [phone] PCP - General 02/19/09 01/04/15 documented as of this encounter
--- OUTSIDE RECORDS SUMMARY | 2024-09-17 15:21 | XMS_ITS | Encounter Summary ---
Author Organization [facility] Address [address] [place] [address] Care Team Providers Care Auto Accessories Installer Name Role Phone Remedios Mehta MD Primary Care Provider +1 -[phone] Reason for Visit * Reason Onset Date Comments Medications Refill 12/27/2012 Encounter Details Date Type Department Care Team (Late st Contact Info) Description 12/27/2012 Refill [facility] Pulmonology & Critical Care - [facility] [address] [place], [place] [phone] Jessy Sky RT Medications Refill Social History [...] Date End Date omeprazole (PRILOSEC) 20 mg capsule Once daily before a meal. 30 Cap 11 12/27/2012 01/31/2013 documented in this encounter Miscellaneous Notes * Telephone Encounter - Jessy Sky RT - 12/27/2012 8035 EST Pharmacist concerned as the script for the prilosec sent over, suggested max dosing of 80 mg daily.The insurance was denying, so E-scribed prilosec to [facility] in [place] for Ms. Husain on 12/27/2012 (without the [...] documented as of this encounter Care Teams Auto Accessories Installer Relationship Specialty Start Date End Date Remedios Mehta MD [address] [place] [phone] PCP - General 02/19/09 01/04/15 documented as of this encounter
--- OUTSIDE RECORDS SUMMARY | 2024-09-17 15:21 | XMS_ITS | Encounter Summary ---
Author Organization [facility] Address [address] [place] [address] Care Team Providers Care Clinical Account Liaison Name Role Phone Remedios Mehta MD Primary Care Provider +1 -[phone] Encounter Details Date Type Department Care Team (Late st Contact Info) Description 12/19/[address] [address] Remedios Mehta MD [address] [place] [phone] Social History Tobacco Use Types Packs/Day [...] on filedocumented in this encounter Care Teams Clinical Account Liaison Relationship Specialty Start Date End Date Remedios Mehta MD [address] [place] [phone] PCP - General 02/19/09 01/04/15 documented as of this encounter
--- OUTSIDE RECORDS SUMMARY | 2024-09-17 15:21 | XMS_ITS | Encounter Summary ---
Author Organization [facility] Address [address] [place] [address] Care Team Providers Care Concierge Receptionist Name Role Phone Remedios Mehta MD Primary Care Provider +1 -[phone] Reason for Visit * Reason Onset Date Comments Appointment Related 12/10/2012 Encounter Details Date Type Department Care Team (Late st Contact Info) Description 12/10/2012 Telephone [facility] Rehabilitation Therapy - Medical Office Building [address] [place] [address] Remedios Mehta MD [address] [place] [phone] Appointment Related Social History Tobacco Use [...] Notes * Telephone Encounter - Emerald Nguyen - 12/10/2012 1036 EST MEDICAL OFFICE BUILDING ([facility]) [address] [place] [address] Phone: [phone] Fax: [phone] Telephone Intake Information for Scheduling NEW Patients [...] on filedocumented in this encounter Care Teams Concierge Receptionist Relationship Specialty Start Date End Date Remedios Mehta MD [address] [place] [phone] PCP - General 02/19/09 01/04/15 documented as of this encounter
--- OUTSIDE RECORDS SUMMARY | 2024-09-17 15:21 | XMS_ITS | Encounter Summary ---
Author Organization [facility] Address [address] [place] [address] Care Team Providers Care Lot Associate Name Role Phone Remedios Mehta MD Primary Care Provider +1 -[phone] Reason for Visit * Reason Comments Shortness of Breath Asthma Nicotine Dependence Gastroesophageal Reflux Encounter Details Date Type Department Care Team (Late st Contact Info) Description 12/12/2012 16:30 EST Office Visit [facility] Pulmonology & Critical Care - [facility] [address] [place], [place] [phone] Unknown, Provider, Chance Yeager MD [address] [place] [phone] Roberto Hodges MD [address] [place], [place] [phone] Asthma (Primary Dx); BERNARD (dyspnea on exertion); GERD (gastroesophageal reflux disease); Morbid obesity ([facility]); Allergic rhinitis Discharge Disposition: Auto Discharge Social [...] 12/12/2012 1607 EST documented in this encounter Mental Status [...] (PRILOSEC) 20 mg capsuleIndications: GERD (gastroesophageal reflux disease) Take 2 Caps by mouth 2 times daily. 60 Cap 4 12/12/2012 12/25/2012 documented in this encounter Discharge Disposition Disposition Code Departure Means Destination Auto Discharge documented in this encounter Progress Notes * Roberto Hodges MD - 12/13/2012 1511 EST DIVISION OF PULMONOLOGY PROGRESS/FOLLOWUP NOTE - 12/12/2012 Remedios Strong MD [address] [place] [phone] Dear Dr Strnog: I had the pleasure of following up [...] Chance Figueroa MD - HERMINIA Cruz - CB Job ID: SM Doc ID: [id number] Ext Doc ID: [id number] cc: Remedios Strong MD * Roberto Hodges MD - 12/13/2012 0938 EST This office note has been dictated. documented in this encounter Procedure Notes * DUCT LAYER HELPER, SCAN 2 - 12/29/2012 1030 ESTAssociated Order(s): [...] EST Narrative 12/29/2012 10:32 EST Procedure Note DUCT LAYER HELPER, SCAN 2 - 12/29/2012 10:30 EST us Scan 2 Relief Salesperson PROCEDURE/MINOR SURGICAL OR DERABLES Final Result documented in this encounter Visit Diagnoses Diagnosis Asthma- Primary Unspecified asthma BERNARD (dyspnea on exertion) Other dyspnea and respiratory abnormality GERD (gastroesophageal reflux disease) Esophageal reflux Morbid obesity ([facility]) Morbid obesity Allergic rhinitis Allergic rhinitis, cause unspecified documented in this encounter Discontinued Medications Medication Sig Discontinue Reason Start Date End Da te pantoprazole (PROTONIX) 40 mg tabletIndications:GERD (gastroesophageal reflux disease) Take 1 Tab by mouth daily. 06/07/2012 12/12/2012 documented as of this encounter Care Teams Lot Associate Relationship Specialty Start Date End Date Remedios Mehta MD [address] [place] [phone] PCP - General 02/19/09 01/04/15 documented as of this encounter
--- OUTSIDE RECORDS SUMMARY | 2024-09-17 15:21 | XMS_ITS | Encounter Summary ---
Author Organization [facility] Address [address] [place] [address] Care Team Providers Care Data Power Consultant Name Role Phone Remedios Mehta MD Primary Care Provider +1 [phone] Encounter Details Date Type Department Care Team (Latest Contact Info) Description 12/12/2012 14:49 EST - 12/12/2012 23:59 EST Hospital Encounter [facility] Pulmonary Function Lab - [facility] [address] [place], [place] [phone] Asthma; SOB (shortness of breath) on exertion [...] times daily. 1 Inhaler 5 07/16/2012 3 duloxetine (CYMBALTA) 60 mg capsuleIndicatio ns:Myalgia and myositis Take 1 Cap by mouth daily. 30 Cap 11 10/11/2012 3 fluocinonide (LIDEX) 0.05 % cream Apply to affect area(s) as directed. 60 g 3 03/23/2012 3 fluticasone (FLONASE) 50 mcg/actuation nasal sprayIndications :Asthma,Hyperlip idemia,Need for Tdap vaccination,Abdo roque discomfort,IBS (irritable bowel syndrome),GERD (gastroesophagea l reflux disease) Instill 1 [place] into both nostrils daily. 1 Bottle 5 [...] as directed. 1 Tube 1 02/17/2010 1 loratadine (CLARITIN) 10 mg tabletIndication s:Allergic rhinitis Take 1 Tab by mouth daily. 90 Tab 1 06/07/2012 3 lovastatin (MEVACOR) 10 mg tabletIndication s:Hyperlipidemia [...] 20 mg capsuleIndicatio ns:GERD (gastroesophagea l reflux disease) Take 2 Caps by mouth 2 times daily. 60 Cap 4 12/12/2012 3 trazodone (DESYREL) 100 mg tabletIndication s:Myalgia and myositis,Arthrop athy Take 2 Tabs by mouth. Take 1-2 tabs at bedtime for sleep as needed 56 Tab 1 08/15/2012 3 zafirlukast (ACCOLATE) 20 mg tabletIndication s:Asthma,Hyperli pidemia,Need for Tdap vaccination,Abdo roque discomfort,IBS (irritable bowel syndrome),GERD (gastroesophagea l reflux disease) Take 1 Tab by mouth 2 times daily. 60 Tab 5 10/05/2012 3 documented as of this encounter Discharge Disposition Disposition Code Departure Means Destination Home or Self Longterm documented in this encounter Progress Notes * Tessa Lopez, RT - 12/12/2012 1548 EST Testing was performed and recorded in [employer]. See complete report in scanned documents. documented in this encounter Plan of Treatment Not on file documented as of this encounter Visit Diagnoses Diagnosis Asthma Unspecified asthma SOB (shortness of breath) on exertion Shortness of breath documented in this encounter Care Teams Data Power Consultant Relationship Specialty Start Date End Date Remedios Mehta MD [address] [place] [phone] PCP - General 02/19/09 01/04/15 documented as of this encounter
--- OUTSIDE RECORDS SUMMARY | 2024-09-17 15:21 | XMS_ITS | Encounter Summary ---
Author Organization [facility] Address [address] [place] [address] Care Team Providers Care Usability Architect Name Role Phone Remedios Mehta MD Primary Care Provider +1 -[phone] Reason for Visit * Reason Onset Date Comments Prior Auth, Medication 01/31/2013 Encounter Details Date Type Department Care Team (Late st Contact Info) Description 01/31/2013 Telephone [facility] Rheumatology & Immunology - [facility] [address] [place] [address] Yovana Callejas MD [address] [place] [phone] Prior Auth, Medication Social History Tobacco Use [...] Encounter - Ana Laura Edge RN - 01/31/2013 1344 EDT Left a [...] 8 vials per 28 days. Specialty pharmacy [facility] has prescription as it is part of the prior auth form. documented in this encounter Plan of Treatment Not on file documented as of this encounter Visit Diagnoses Not on filedocumented in this encounter Care Teams Usability Architect Relationship Specialty Start Date End Date Remedios Mehta MD [address] [place] [phone] PCP - General 02/19/09 01/04/15 documented as of this encounter
--- OUTSIDE RECORDS SUMMARY | 2024-09-17 15:21 | XMS_ITS | Encounter Summary ---
Author Organization [facility] Address [address] [place] [address] Care Team Providers Care Funeral Car Driver Name Role Phone Remedios Mehta MD Primary Care Provider +1 -[phone] Reason for Referral * Consult (Routine/Next Available) - Closed Specialty Diagnoses / Procedures [facility] Referred To Contact Diagnoses Obesity, Class III, BMI 40-49.9 (morbid obesity) ([facility]) Diabetes mellitus type II, controlled ([facility]) Hyperlipidemia Remedios Mehta MD Phone: tel: fax: Referral ID Status Reason Start Date Expiration Date V isits Requested Visits Authorized [id number] Closed Specialty Services Required 12/17/2012 1 1 [...] please call the Community Health Team at [phone]. Encounter Details Date Type Department Care Team (Late st Contact Info) Description 12/17/2012 Orders Only [facility] Medicine [address] [address] Remedios Mehta MD [address] [place] [address] [place] [phone] Obesity, Class III, BMI 40-49.9 (morbid obesity) ([facility]) ([facility]) (Primary Dx); Diabetes mellitus type II, controlled ([facility]) ([facility]); Hyperlipidemia Social History Tobacco Use Types [...] Obesity, Class III, BMI 40-49.9 (morbid obesity) ([facility]) ([facility]) Diabetes mellitus type II, controlled ([facility]) ([facility]) Hyperlipidemia Ordered: 12/17/2012 documented as of this encounter Visit Diagnoses Diagnosis Obesity, Class III, BMI 40-49.9 (morbid obesity) ([facility])- Primary Morbid obesity Diabetes mellitus type II, controlled ([facility]) Type II or unspecified type diabetes mellitus without mention of complication, not stated as uncontrolled Hyperlipidemia Other and unspecified hyperlipidemia documented in this encounter Care Teams Funeral Car Driver Relationship Specialty Start Date End Date Remedios Mehta MD [address] [place] [phone] PCP - General 02/19/09 01/04/15 documented as of this encounter
--- OUTSIDE RECORDS SUMMARY | 2024-09-17 15:21 | XMS_ITS | Encounter Summary ---
Author Organization [facility] Address [address] [place] [address] Care Team Providers Care Material Handler 1St Shift Name Role Phone Remedios Mehta MD Primary Care Provider +1 -[phone] Reason for Visit * Reason Comments Arthritis Knee Pain left knee fell in ba thtub Asthma Allergic Rhinitis Foot Pain bottom of right foot - just started 2 d ago Encounter Details Date Type Department Care Team (Late st Contact Info) Description 01/02/2013 14:45 EST Office Visit [facility] - [address] [address] Remedios Mehta MD [address] [place] [address] Risk for falls (Primary Dx); [...] from the original note were not included. [facility] Patient Instructions Foot Pain: After Your Visit [...] your doctor if you can take an ugjh-aev-jyfakif medicine. ?? Rest and protect your foot. [...] Where can you learn more? Go to www.moka5.net/fahc Enter D999 in the search box to learn more about Foot Pain: After Your Visit. ?? 1216-6058 [employer]. Care instructions adapted under license by [facility] This care instruction is for use with your licensed healthcare professional. If you have questions about a medical condition or this instruction, always ask your healthcare professional. [employer] disclaims any warranty or liability for your use of this information. Content Version: 9.2.044743; Last Revised: January 14, 2011 [facility] Patient Instructions Arch Pain: Exercises Your Care [...] seconds. 5. Repeat 2 to 4 times. Olivia pick-ups 1. Put some marbles on the [...] Where can you learn more? Go to www.moka5.net/fahc Enter H119 in the search box to learn more about Arch Pain: Exercises. ?? 6678-8575 [employer]. Care instructions adapted under license by [facility], [facility]. This care instruction is for use with your licensed healthcare professional. If you have questions about a medical condition or this instruction, always ask your healthcare professional. [employer] disclaims any warranty or liability for your use of this information. Content Version: 9.2.568748; Last Revised: March 08, 2010 documented in this encounter Ordered Prescriptions Prescription Sig Dispense Quantity Refills Last Filled Start Date End Date lactobacillus rham. GG-inulin 10 billion cell -200 mg CpSPIndications:GE RD (gastroesophageal reflux disease),Bloating, IBS (irritable bowel syndrome),Fibromya lgia,Risk for falls,Asthma,Obesi ty, Class II, BMI 35-39.9, with comorbidity,Hyperg lycemia Take 1 Applicator by mouth daily. 1 Bottle 3 01/02/2013 3 documented in this encounter Progress Notes [...] spirits. Is finding the CHT very helpful. Demand Planner has mentioned that probiotics might help her [...] (FLONASE) 50 mcg/actuation nasal spray Instill 1 [place] into both nostrils daily. 1 Bottle 5 [...] 01/02/2013 documented in this encounter Care Teams Material Handler 1St Shift Relationship Specialty Start Date End Date Remedios Mehta MD [address] [place] [phone] PCP - General 02/19/09 01/04/15 documented as of this encounter
--- OUTSIDE RECORDS SUMMARY | 2024-09-17 15:21 | XMS_ITS | Encounter Summary ---
Author Organization [facility] Address [address] [place] [address] Care Team Providers Care Glove Wrapper Name Role Phone Remedios Mehta MD Primary Care Provider +1 -[phone] Reason for Visit * Reason Onset Date Comments PPD Reading 01/25/2013 Encounter Details Date Type Department Care Team (Late st Contact Info) Description 01/25/2013 Telephone [facility] Rheumatology & Immunology - [facility] [address] [place] [address] Yovana Callejas MD [address] [place] [address] [phone] PPD Reading Social History Tobacco [...] patient. She is unable to come to [place] for PPD read. She asks if she can go to [facility]. Spoke with Estevan at [facility] and they will see her, but she [...] know if she can take it to [place] for the readings. documented in this encounter Plan of Treatment Not on file documented as of this encounter Visit Diagnoses Not on filedocumented in this encounter Care Teams Glove Wrapper Relationship Specialty Start Date End Date Remedios Mehta MD [address] [place] [phone] PCP - General 02/19/09 01/04/15 documented as of this encounter
--- OUTSIDE RECORDS SUMMARY | 2024-09-17 15:21 | XMS_ITS | Encounter Summary ---
Author Organization [facility] Address [address] [place] [address] Care Team Providers Care Service Tech/Welder Name Role Phone Remedios Mehta MD Primary Care Provider +1 -[phone] Reason for Referral * Consult (Routine/Next Available) - Closed Specialty Diagnoses / Procedures Referred By Joao proctor Referred To Contact Nutrition Diagnoses Obesity, Class III, BMI 40-49.9 (morbid obesity) ([facility]) Breast lobule hyperplasia Knee pain Remedios Mehta MD Phone: tel: fax: [facility] Nutrition Services - [facility] [address] [place] [address] Phone: tel: fax: Referral ID Status Reason Start Date Expiration Date V isits Requested Visits Authorized [id number] Closed Specialty Services Required 12/03/2012 1 1 Question Answer Reason for Request: difficulty losing weight * Consult, Test and Treat (Routine/Next Available) - Closed Specialty Diagnoses / Procedures Referred By Joao proctor Referred To Contact Rehab Therapies Diagnoses Knee pain Remedios Mehta MD Phone: tel: fax: Referral ID Status Reason Start Date Expiration Date V isits Requested Visits Authorized [id number] Closed Specialty Services Required 12/03/2012 1 1 Question Answer Reason for Request: left knee pain Reason for Visit * Reason Comments Knee Pain Nutrition Counseling Other fibro, ibs, back mike n, everything Encounter Details Date Type Department Care Team (Late st Contact Info) Description 12/03/2012 11:45 EST Office Visit [address] [address] Remedios Mehta MD [address] [place] [phone] Need for Tdap vaccination (Primary Dx); Knee pain; Obesity, Class III, BMI 40-49.9 (morbid obesity) (CMS-HCC) ([facility]); Breast lobule hyperplasia; Fibromyalgia; IBS (irritable bowel [...] 09/12/2012 1338 EST documented in this encounter Mental Status [...] Notes * Remedios Strong MD - 12/04/2012 0746 EST Subjective: Patient ID: Cherelle Husain is [...] (FLONASE) 50 mcg/actuation nasal spray Instill 1 [place] into both nostrils daily. 1 Bottle 5 [...] Obesity, Class III, BMI 40-49.9 (morbid obesity) ([facility]) ([facility]) Breast lobule hyperplasia Knee pain Ordered: 12/03/2012 documented as of this encounter Visit Diagnoses Diagnosis Need for Tdap vaccination- Primary Need for prophylactic vaccination with combined wluoebxhev-wdngexi-jnzekuczi (DTP) vaccine Knee pain Pain in joint, lower leg Obesity, Class III, BMI 40-49.9 (morbid obesity) ([facility]) Morbid obesity Breast lobule hyperplasia Hypertrophy of breast Fibromyalgia Mylagia and myositis, unspecified IBS (irritable bowel syndrome) Irritable bowel syndrome Arthritis Arthropathy, unspecified, site unspecified documented in this encounter Discontinued Medications Medication Sig Discontinue Reason Start Date End Da te enoxaparin (LOVENOX) 60 mg/0.6 mL injectionIndications:Hyp ercoagulable state ([facility]) Inject 60 mg into the skin daily. Therapy completed 09/04/2012 12/03/2012 hydrocodone-acetaminophe n (LORTAB) 5-500 mg tabletIndications:Arthri tis Take 1 Tab by mouth every 6 hours as needed for Pain (up to 4 pills a day). Reorder 11/26/2012 12/03/2012 documented as of this encounter Care Teams Service Tech/Welder Relationship Specialty Start Date End Date Remedios Mehta MD [address] [place] [phone] PCP - General 02/19/09 01/04/15 documented as of this encounter
--- OUTSIDE RECORDS SUMMARY | 2024-09-17 15:21 | XMS_ITS | Encounter Summary ---
Author Organization [facility] Address [address] [place] [address] Care Team Providers Care Raised Printer Name Role Phone Remedios Mehta MD Primary Care Provider +1 -[phone] Reason for Visit * Reason Comments Community Health Team Encounter Details Date Type Department Care Team (Late st Contact Info) Description 01/30/2013 Community Health Team [address], [address] [place] [address] Nelda Conley, RD [address] [place] [address] Social History Tobacco Use Types Packs/Day Years [...] on filedocumented in this encounter Care Teams Raised Printer Relationship Specialty Start Date End Date Remedios Mehta MD [address] [place] [phone] PCP - General 02/19/09 01/04/15 documented as of this encounter
--- OUTSIDE RECORDS SUMMARY | 2024-09-17 15:21 | XMS_ITS | Encounter Summary ---
Author Organization [facility] Address [address] [place] [address] Care Team Providers Care Loom Changer Name Role Phone Remedios Mehta MD Primary Care Provider [phone] -[phone] Reason for Visit * Reason Comments Community Health Team Encounter Details Date Type Department Care Team (Late st Contact Info) Description 12/24/2012 Community Health Team [address], [address] [place] [address] Teresita Conley, RD [address] [place] [address] Social History Tobacco Use Types Packs/Day Years [...] documented in this encounter Progress Notes * Deanna Choi - 12/24/2012 1147 EST ..Received referral to Community Health Team. Patient is scheduled to meet with teresita Morales on 12.31.12 at 2:30pm. ([facility]) documented in this encounter Plan of Treatment Not on file documented as of this encounter Visit Diagnoses Not on filedocumented in this encounter Care Teams Loom Changer Relationship Specialty Start Date End Date Remedios Mehta MD [address] [place] [phone] PCP - General 02/19/09 01/04/15 documented as of this encounter
--- OUTSIDE RECORDS SUMMARY | 2024-09-17 15:21 | XMS_ITS | Encounter Summary ---
Author Organization [facility] Address [address] [place] [address] Care Team Providers Care Dump Truck Operator Name Role Phone Remedios Mehta MD Primary Care Provider +1 -[phone] Encounter Details Date Type Department Care Team (Latest Contact Info) Description 02/01/2013 13:53 EDT - 02/01/2013 23:59 EDT Hospital Encounter [facility] - Other [address] [place], [place] [address] Remedios Mehta MD [address] [place] [phone] Discharge Disposition: Home or Self Care [...] syndrome),GERD (gastroesophagea l reflux disease) Instill 1 [place] into both nostrils daily. 1 Bottle 5 [...] 5 01/30/2013 3 ketoconazole (NIZORAL) 2 % creamIndications :Rash [...] times daily. 60 Cap 2 01/31/2013 3 trazodone (DESYREL) 100 mg tabletIndication s:Myalgia [...] Code Departure Means Destination Home or Self Residential documented in this encounter Plan of Treatment Not on file documented as of this encounter Visit Diagnoses Not on filedocumented in this encounter Care Teams Dump Truck Operator Relationship Specialty Start Date End Date Remedios Mehta MD [address] [place] [phone] PCP - General 02/19/09 01/04/15 documented as of this encounter
--- OUTSIDE RECORDS SUMMARY | 2024-09-17 15:21 | XMS_ITS | Encounter Summary ---
Author Organization [facility] Address [address] [place] [address] Care Team Providers Care Medical Csr Name Role Phone Remedios Mehta MD Primary Care Provider +1 -[phone] Reason for Visit * Reason Comments Community Health Team Encounter Details Date Type Department Care Team (Late st Contact Info) Description 01/14/2013 Community Health Team [address], [address] [place] [address] Nelda Conley, RD [address] [place] [address] Social History Tobacco Use Types Packs/Day Years [...] filedocumented in this encounter Care Teams Medical Csr Relationship Specialty Start Date End Date Remedios Mehta MD [address] [place] [phone] PCP - General 02/19/09 01/04/15 documented as of this encounter
--- OUTSIDE RECORDS SUMMARY | 2024-09-17 15:21 | XMS_ITS | Encounter Summary ---
Author Organization [facility] Address [address] [place] [address] Care Team Providers Care Microwave Radio Technician Name Role Phone Remedios Mehta MD Primary Care Provider +1 -[phone] Encounter Details Date Type Department Care Team (Late st Contact Info) Description 01/30/2013 Orders Only [facility] Rheumatology & Immunology - [facility] [address] [place] [address] Olga Lidia Verdugo RN Arthropathy (Primary Dx); [...] Refills Last Filled Start Date End Date hydroxychloroquine (PLAQUENIL) 200 mg tabletIndications:A rthropathy,Arthriti s Take 1 Tab by mouth 2 times [...] documented as of this encounter Care Teams Microwave Radio Technician Relationship Specialty Start Date End Date Remedios Mehta MD [address] [place] [phone] PCP - General 02/19/09 01/04/15 documented as of this encounter
--- OUTSIDE RECORDS SUMMARY | 2024-09-17 15:21 | XMS_ITS | Encounter Summary ---
Author Organization [facility] Address [address] [place] [address] Care Team Providers Care Shake Backboard Notcher Name Role Phone Remedios Mehta MD Primary Care Provider +1 -[phone] Reason for Visit * Reason Comments PPD Reading Encounter Details Date Type Department Care Team (Late st Contact Info) Description 01/25/2013 15:15 EDT Nurse Only [address] [address] Unknown, Provider, Nurse, [facility] Family RN PPD screening test (Primary Dx) Social [...] documented in this encounter Progress Notes * Poly Arias LPN - 01/25/2013 1548 EDT Patient here for PPD reading only [...] tuberculosis documented in this encounter Care Teams Shake Backboard Notcher Relationship Specialty Start Date End Date Remedios Mehta MD [address] [place] [phone] PCP - General 02/19/09 01/04/15 documented as of this encounter
--- OUTSIDE RECORDS SUMMARY | 2024-09-17 15:21 | XMS_ITS | Encounter Summary ---
Author Organization [facility] Address [address] [place] [address] Care Team Providers Care Truck Shop Mechanic Name Role Phone Remedios Mehta MD Primary Care Provider +1 -[phone] Encounter Details Date Type Department Care Team (Latest Contact Info) Description 12/11/2012 10:00 EST - 12/11/2012 23:59 EST Hospital Encounter [facility] - Medical Office Building [phone] Remedios Mehta MD [address] [place] [phone] Discharge Disposition: Home or Self Care [...] syndrome),GERD (gastroesophagea l reflux disease) Instill 1 [place] into both nostrils daily. 1 Bottle 5 [...] times daily. 180 Tab 4 04/04/2012 3 pantoprazole (PROTONIX) 40 mg tabletIndication s:GERD (gastroesophagea l reflux disease) Take 1 Tab by mouth daily. 90 Tab 1 06/07/2012 3 trazodone (DESYREL) 100 mg tabletIndication s:Myalgia [...] on filedocumented in this encounter Care Teams Truck Shop Mechanic Relationship Specialty Start Date End Date Remedios Mehta MD [address] [place] [phone] PCP - General 02/19/09 01/04/15 documented as of this encounter
--- OUTSIDE RECORDS SUMMARY | 2024-09-17 15:21 | XMS_ITS | Encounter Summary ---
Author Organization [facility] Address [address] [place] [address] Care Team Providers Care Flux Plant Operator Name Role Phone Remedios Mehta MD Primary Care Provider +1 -[phone] Encounter Details Date Type Department Care Team (Late st Contact Info) Description 01/23/[address] [facility] Rheumatology & Immunology - [facility] [address] [place], [place] [phone] Yovana Callejas MD [address] [place] [address] [address] [place] [phone] Social History Tobacco Use Types Packs/Day [...] [facility] Comment: Desirable:<200 Borderline High:200-239 High:>hz=382 Triglycerides 152 mg/dl [facility] Comment: Normal:<150 Borderline High:150-199 High:200-499 Very High:>hx=321 HDL 52 mg/dl [facility] Comment: Low:<40 Normal:40-60 Desirable: >60 LDL, Calculated 125 mg/dl [facility] Comment: Optimal:<100 Near Optimal:100-129 Borderline High:130-159 High:160-189 Very High:>wq=767 Chol/HDL Ratio 4.0 [facility] Fasting? Unknown [facility] 01/23/2013 12:4 4 EDT 01/23/2013 13:08 EDT us Yovana Callejas MD CHEMISTRY & BLOOD GAS OR DERABLES Final Result [facility] [address] [place] [address] * HEMOGLOBIN A1C (01/23/2013 12:44 EDT) Hemoglobin A1C 6.1 % [facility] Comment: Reference Range: <5.7% Normal 5.7-6.4% Increased risk for diabetes =>6.5% Diagnostic for diabetes (if confirmed) The A1c goal for non adults in general is <7%. The A1c goal for selected patients may be significantly lower than 7% if this can be achieved without significant hypoglycemia or other adverse effects of treatment. Est Avg Glucose 128 mg/dl [facility] Comment: eAG represents the A1c result expressed as average glucose in mg/dl. 01/23/2013 12:4 4 EDT 01/23/2013 13:08 EDT Yovana Callejas MD CHEMISTRY & BLOOD GAS OR DERABLES Final Result Performing Organization Address [facility] Co de Phone Number [facility] [address] [place] [address] * MULTIPLE DOC ORDERS (01/23/2013 12:44 EDT) Multiple Doc Orders This report contains lab results ordered [facility] Comment: by another provider which were collected and processed simultaneously with the orders you requested. If you have any questions, please call Customer Service at [phone]. 01/23/2013 12:4 4 EDT 01/23/2013 13:08 EDT us Yovana Callejas MD CHEMISTRY & BLOOD GAS OR DERABLES Final Result Performing Organization Address [facility] de Phone Number [facility] [address] [place] [address] documented in this encounter Visit Diagnoses Not on filedocumented in this encounter Care Teams Flux Plant Operator Relationship Specialty Start Date End Date Remedios Mehta MD [address] [place] [phone] PCP - General 02/19/09 01/04/15 documented as of this encounter
--- OUTSIDE RECORDS SUMMARY | 2024-09-17 15:21 | XMS_ITS | Encounter Summary ---
Author Organization [facility] Address [address] [place] [address] Care Team Providers Care Mmi Teacher Name Role Phone Remedios Mehta MD Primary Care Provider +1 -[phone] Reason for Visit * Reason Comments Community Health Team Encounter Details Date Type Department Care Team (Late st Contact Info) Description 01/07/2013 Community Health Team [address], [address] [place] [address] Nelda Conley, RD [address] [place] [address] Social History Tobacco Use Types Packs/Day Years [...] - 01/07/2013 1214 EDT ..Patient called the [facility] Team to reschedule appointment with Nelda Conley RD, CHT from 01/07 to January 14 at 2:30 pm. documented in this encounter Plan of Treatment Not on file documented as of this encounter Visit Diagnoses Not on filedocumented in this encounter Care Teams Mmi Teacher Relationship Specialty Start Date End Date Remedios Mehta MD [address] [place] [phone] PCP - General 02/19/09 01/04/15 documented as of this encounter
--- OUTSIDE RECORDS SUMMARY | 2024-09-17 15:21 | XMS_ITS | Encounter Summary ---
Author Organization [facility] Address [address] [place] [address] Care Team Providers Care Narrow Gauge Engineer Name Role Phone Remedios Mehta MD Primary Care Provider +1 -[phone] Reason for Visit * Reason Onset Date Comments Medication Management 01/28/2013 Encounter Details Date Type Department Care Team (Late st Contact Info) Description 01/28/2013 Telephone [facility] Rheumatology & Immunology - [facility] [address] [place] [address] Yovana Callejas MD [address] [place] [address] [phone] Medication Management Social History Tobacco [...] Telephone Encounter - Robyn Nathan RN - 01/29/2013 1007 EDT left for [...] and TB test done at [facility] on 01/23/13 and would like to know what meds she should be on. Patient would like a call back today if possible. Thanks documented in this encounter Plan of Treatment Not on file documented as of this encounter Visit Diagnoses Not on filedocumented in this encounter Care Teams Narrow Gauge Engineer Relationship Specialty Start Date End Date Remedios Mehta MD [address] [place] [phone] PCP - General 02/19/09 01/04/15 documented as of this encounter
--- OUTSIDE RECORDS SUMMARY | 2024-09-17 15:21 | XMS_ITS | Encounter Summary ---
Author Organization [facility] Address [address] [place] [address] Care Team Providers Care Clothes Marker Name Role Phone Remedios Mehta MD Primary Care Provider +1 -[phone] Encounter Details Date Type Department Care Team (Late st Contact Info) Description 01/23/2013 Phlebotomy Only [address] [address] Inspector Material Disposition, Outpatient Arthropathy; Encounter for long-term (current) use of other medications; Risk for falls; GERD (gastroesophageal reflux disease); Asthma; Obesity, Class II, BMI 35-39.9, with comorbidity; Bloating; IBS (irritable bowel syndrome); Fibromyalgia; Hyperglycemia; Psoriatic arthropathy ([facility]) Social History Tobacco Use Types Packs/Day Years [...] 01/23/2013 12:44 EDT Psoriatic arthropathy ([facility]) Encounter for long-term (current) use of other medications DIFFERENTIAL Routine 01/23/2013 12:44 EDT HEPATITIS B SURFACE ANTIBODY Routine 01/23/2013 12:44 EDT Psoriatic arthropathy ([facility]) Encounter for long-term (current) use of other medications HEPATITIS B SURFACE ANTIGEN Routine 01/23/2013 12:44 EDT Psoriatic arthropathy ([facility]) Encounter for long-term (current) use of [...] ABS Lymphs 2.68 1.09 - 3.30 K/cmm [facility] ABS Monocytes 0.57 0.1 - 0.8 K/cmm [facility] ABS Eosinophils 0.16 0.03 - 0.61 K/cmm [facility] ABS Basophils 0.10 0.01 - 0.11 K/cmm [facility] Type of Diff: Automated [facility] 01/23/2013 12:4 4 EDT 01/23/2013 13:08 EDT us Yovana Callejas MD HEMATOLOGY & PF4 ORDERAB LES Final Result Performing Organization Address City/[facility]/ZIP Co de Phone Number [facility] [address] [place] [address] * (ABNORMAL) HEMAGRAM (01/23/2013 12:44 EDT) WBC 7.97 4.0 - 12.4 K/cmm [facility] RBC 4.32 3.86 - 5.04 M/cmm [facility] Hemoglobin 13.5 11.6 - 15.2 gm/dl [facility] HCT 40.1 34.9 - 44.4 % [facility] MCV 93 81 - 98 fl [facility] MCH 31.3 26.7 - 33.3 pg [facility] MCHC 33.7 32.1 - 35.9 gm/dl [facility] PLT 356(H) 141 - 320 K/cmm [facility] RDW-CV 13.0 11.7 - 14.6 % [facility] 01/23/2013 12:4 4 EDT 01/23/2013 13:08 EDT us Yovana Callejas MD HEMATOLOGY & PF4 ORDERAB LES Final Result Performing Organization Address City/[facility]/ZIP Co de Phone Number [facility] [address] [place] [address] * HEPATITIS C ANTIBODY (01/23/2013 12:44 EDT) Hepatitis C Ab Negative [facility] Comment:Reference Range: Neg ative Blood specimen (specimen) 01/23/2013 12:44 EDT 01/23/2013 13:08 EDT Yovana Callejas MD CHEMISTRY & BLOOD GAS OR DERABLES Final Result Performing Organization Address [facility] de Phone Number [facility] [address] [place] [address] * HEPATITIS B CORE ANTIBODY (01/23/2013 12:44 EDT) Hep B Core Ab Negative [facility] Comment: Reference Range: ??Negative Interpretation depends on clinical setting. Blood specimen (specimen) 01/23/2013 12:44 EDT 01/23/2013 13:08 EDT Yovana Callejas MD CHEMISTRY & BLOOD GAS OR DERABLES Final Result Performing Organization Address [facility] Phone Number [facility] [address] [place] [address] * HEPATITIS B SURFACE ANTIBODY (01/23/2013 12:44 [...] OR DERABLES Final Result Performing Organization Address [facility] Co de Phone Number [facility] [address] [place] [address] * HEPATITIS B SURFACE ANTIGEN (01/23/2013 12:44 EDT) Hepatitis B Surface Ag Negative [facility] Comment:Reference Range: Neg ative Blood specimen (specimen) 01/23/2013 12:44 EDT 01/23/2013 13:08 EDT Yovana Callejas MD CHEMISTRY & BLOOD GAS OR DERABLES Final Result Performing Organization Address [facility] Co de Phone Number [facility] [address] [place] [address] * COMPREHENSIVE METABOLIC PANEL (CMP) (01/23/2013 12:44 EDT) Pathologist [facility] Potassium 4.5 3.5 - 5.0 mEq/L [facility] [...] 100 mg/dl [facility] Fasting? Unknown [facility] Blood specimen (specimen) 01/23/2013 12:44 EDT 01/23/2013 13:08 EDT Yovana Callejas MD CHEMISTRY & BLOOD GAS OR DERABLES Final Result Performing Organization Address [facility] Co de Phone Number [facility] [address] [place] [address] documented in this encounter Visit Diagnoses Diagnosis [...] unspecified Hyperglycemia Other abnormal glucose Psoriatic arthropathy ([facility]) Psoriatic arthropathy documented in this encounter Care Teams Clothes Marker Relationship Specialty Start Date End Date Remedios Mehta MD [address] [place] [phone] PCP - General 02/19/09 01/04/15 documented as of this encounter
--- OUTSIDE RECORDS SUMMARY | 2024-09-17 15:21 | XMS_ITS | Encounter Summary ---
Author Organization [facility] Address [address] [place] [address] Care Team Providers Care Focused Factory Manager Name Role Phone Remedios Mehta MD Primary Care Provider +1 [phone] Encounter Details Date Type Department Care Team (Latest Contact Info) Description 12/12/2012 14:49 EST - 12/12/2012 23:59 EST Hospital Encounter [facility] Pulmonary Function Lab - [facility] [address] [place], [place] [address] Unknown, Provider, MD Figueroa, Chance Schofield MD [address] [place] [phone] Discharge Disposition: Auto Discharge Social History [...] syndrome),GERD (gastroesophagea l reflux disease) Instill 1 [place] into both nostrils daily. 1 Bottle 5 [...] on filedocumented in this encounter Care Teams Focused Factory Manager Relationship Specialty Start Date End Date Remedios Mehta MD [address] [place] [phone] PCP - General 02/19/09 01/04/15 documented as of this encounter
--- OUTSIDE RECORDS SUMMARY | 2024-09-17 15:21 | XMS_ITS | Encounter Summary ---
Author Organization [facility] Address [address] [place] [address] Care Team Providers Care Weed Thinner Name Role Phone Remedios Mehta MD Primary Care Provider +1 -[phone] Reason for Visit * Reason Onset Date Comments Prior Auth, Medication 12/24/2012 Medication Problem 12/24/2012 Prilosec Encounter Details Date Type Department Care Team (Late st Contact Info) Description 12/24/2012 Telephone [facility] Pulmonology & Critical Care - [facility] [address] [place] [address] Roberto Hodges MD [address] [place], [place] [address] Prior Auth, Medication; Medication Problem (Prilosec) Social [...] Telephone Encounter - Jessy Sky, RT - 12/25/2012 1225 EST LMOM for pt to corn picker the once daily dosing of omeprazole and to call us in 2 weeks after trying it, to let us know if she has relief of her sx. RT TELMA . * Telephone Encounter - Roberto Hodges [...] Larissa Rosales - 12/25/2012 1052 EST Per Shannon, [facility]'s insurance company has denied the Prilosec 20 [...] documented as of this encounter Care Teams Weed Thinner Relationship Specialty Start Date End Date Remedios Mehta MD [address] [place] [phone] PCP - General 02/19/09 01/04/15 documented as of this encounter
--- OUTSIDE RECORDS SUMMARY | 2024-09-17 15:22 | XMS_ITS | Encounter Summary ---
Author Organization [facility] Address [address] [place] [address] Care Team Providers Care Despatch Clerk Name Role Phone Remedios Mehta MD Primary Care Provider [phone] [phone] Encounter Details Date Type Department Care Team (Late st Contact Info) Description 09/06/2012 Results Only [facility] Laboratory Services - [facility] ([facility] [address] [place] [phone] Antoinette Schilling MD [address] [place] [address] Social History Tobacco Use Types [...] 09/06/2012 15:0 1 EST 09/06/2012 15:01 EST us Antoinette Schilling MD CHEMISTRY & BLOOD GAS ORDERABLE S Final Result [facility] [address] [place] [address] * (ABNORMAL) HEMAGRAM (09/06/2012 15:01 EST) WBC [...] 09/06/2012 15:0 1 EST 09/06/2012 15:01 EST us Antoinette Schilling MD HEMATOLOGY & PF4 ORDERABLES Fin al Result [facility] [address] [place] [address] documented in this encounter Visit Diagnoses Not on filedocumented in this encounter Care Teams Despatch Clerk Relationship Specialty Start Date End Date Remedios Mehta MD [address] [place] [phone] PCP - General 02/19/09 01/04/15 documented as of this encounter
--- OUTSIDE RECORDS SUMMARY | 2024-09-17 15:22 | XMS_ITS | Encounter Summary ---
Author Organization [facility] Address [address] [place] [address] Care Team Providers Care Screedman Name Role Phone Remedios Mehta MD Primary Care Provider +1 -[phone] Reason for Visit * Reason Onset Date Comments Procedure 07/31/2012 surgery Encounter Details Date Type Department Care Team (Late st Contact Info) Description 07/31/2012 Telephone [facility] Hematology & Oncology - [facility] [address] [place], [place] [phone] Joey Preciado [address] [place] [phone] Procedure (surgery) Social History Tobacco Use Types [...] on filedocumented in this encounter Care Teams Screedman Relationship Specialty Start Date End Date Remedios Mehta MD [address] [place] [phone] PCP - General 02/19/09 01/04/15 documented as of this encounter
--- OUTSIDE RECORDS SUMMARY | 2024-09-17 15:22 | XMS_ITS | Encounter Summary ---
Author Organization [facility] Address [address] [place] [address] Care Team Providers Care Divorce Mediator Name Role Phone Remedios Mehta MD Primary Care Provider +1 -[phone] Reason for Visit * Reason Onset Date Comments Asthma 08/25/2012 Encounter Details Date Type Department Care Team (Late st Contact Info) Description 08/25/2012 Telephone [facility] [address] [place] [address] Remedios Mehta MD [address] [place] [phone] Asthma Social History Tobacco Use Types [...] exacerbation. Advised she be evaluated at the [facility]. I do not feel comfortable phoning in Z-alfred, prednisone, and nebulizer treatments at this time. I spoke to a family member who will bring her in. Jagruti Lala MD Rpg Developer, PGY-3 pager [phone] 08/25/2012 15:29 * Telephone Encounter - Victorina Alejo - 08/25/2012 1259 EDT See information from note that is in pulmonary from yesterday. Patient is very sick she is having an asthma attack and has a terrible cold. States she has not received a call from pulmonary. Elda Yip, 08/24/2012 15:53 Signed Called pt who reports [...] a year ago. Uses [facility] in [place]. Will relay to Dr Hodges for advice. ELDA YIP, RT Rosalva Mukherjee 08/24/2012 10:41 Signed Pt has the flu and flow meter is below the red zone. Pt is light headed and coughing. Please call earlene documented in this encounter Plan of Treatment Not on file documented as of this encounter Visit Diagnoses Not on filedocumented in this encounter Care Teams Divorce Mediator Relationship Specialty Start Date End Date Remedios Mehta MD [address] [place] [phone] PCP - General 02/19/09 01/04/15 documented as of this encounter
--- OUTSIDE RECORDS SUMMARY | 2024-09-17 15:22 | XMS_ITS | Encounter Summary ---
Author Organization [facility] Address [address] [place] [address] Care Team Providers Care Career Services Coordinator Name Role Phone Rmeedios Mehta MD Primary Care Provider +1 -[phone] Reason for Visit * Reason Onset Date Comments Prior Auth, Medication 08/13/2012 Encounter Details Date Type Department Care Team (Late st Contact Info) Description 08/13/2012 Telephone [facility] Pulmonology & Critical Care - [facility] [address] [place] [address] Solange Gustafson MD [address] [place] [phone] Prior Auth, Medication Social History Tobacco Use [...] on filedocumented in this encounter Care Teams Career Services Coordinator Relationship Specialty Start Date End Date Remedios Mehta MD [address] [place] [phone] PCP - General 02/19/09 01/04/15 documented as of this encounter
--- OUTSIDE RECORDS SUMMARY | 2024-09-17 15:22 | XMS_ITS | Encounter Summary ---
Author Organization [facility] Address [address] [place] [address] Care Team Providers Care Boiler Riveter Name Role Phone Remedios Mehta MD Primary Care Provider +1 -[phone] Reason for Visit * Reason Onset Date Comments Medications Refill 08/22/2012 Encounter Details Date Type Department Care Team (Late st Contact Info) Description 08/22/[address] [address] Remedios Mehta MD [address] [place] [phone] Medications Refill Social History Tobacco Use [...] 5 08/22/2012 10/05/2012 lovastatin (MEVACOR) 10 mg tabletIndications:H yperlipidemia,Asthm a,Need [...] vaccination Need for prophylactic vaccination with combined aiyihiuyyd-cbhipmh-pefskecaj (DTP) vaccine Abdominal discomfort Abdominal pain, unspecified [...] documented as of this encounter Care Teams Boiler Riveter Relationship Specialty Start Date End Date Remedios Mehta MD [address] [place] [phone] PCP - General 02/19/09 01/04/15 documented as of this encounter
--- OUTSIDE RECORDS SUMMARY | 2024-09-17 15:22 | XMS_ITS | Encounter Summary ---
Author Organization [facility] Address [address] [place] [address] Care Team Providers Care First Sampler Name Role Phone Remedios Mehta MD Primary Care Provider + -[phone] Reason for Referral * Vascular Lab (Routine/Next Available) - Closed Specialty Diagnoses / Procedures Referred By Joao proctor Referred To Contact Diagnoses Hypercoagulation syndrome (HCC-CMS) Leg pain, right Procedures VL LOWER VENOUS (DVT) BILATERAL Minoo Messer NP Phone: tel: fax: Referral ID Status Reason Start Date Expiration Date Visits Re quested Visits Authorized [id number] Closed 08/08/2012 1 1 Reason for Visit * Reason Comments Follow-up Encounter Details Date Type Department Care Team (Late st Contact Info) Description 08/08/2012 15:30 EDT Office Visit [facility] Cancer Center Hematology & Oncology - [address] [phone] Minoo Messer NP [address] [facility], [address] [place] [address] Hypercoagulation syndrome (CMS-HCC) (HCC-CMS) (Primary Dx); [...] 08/08/2012 1534 EDT documented in this encounter Mental Status [...] swelling. 2) Labs today. 3) For upcoming GAMING ASSOCIATE procedure, I recommend Lovenox 60 mg once [...] 110, factor V Leiden negative, prothrombin gene 23438A negative, PTT 32. Protein S 118,?? b.?? [...] to discuss thromboprophylaxis recommendations for an upcoming AVIATION TECHNICIAN procedure scheduled for September [address] Schilling and Dr Yoder. The procedure will be performed at [facility]. It will include a D and C [...] Has a daughter, , who lives in [place] with one son, Rickey, now 4 weeks old. Medications: Current Outpatient Prescriptions Medication Sig Dispense Refill ??? zafirlukast (ACCOLATE) 20 mg tablet Take 1 Tab by mouth 2 times daily. 60 Tab 5 ??? lovastatin (MEVACOR) 10 mg tablet Take 1 Tab by mouth daily. 90 Tab 4 ??? fluticasone (FLONASE) 50 mcg/actuation nasal spray Instill 1 [place] into both nostrils daily. 1 Bottle 5 [...] D and C and biopsies for possible GAMING ASSOCIATE cancer on 09/[address] Antoinette Schilling and will need post procedure thromboprophylaxis. Plan: 1. I will send her for bilateral lower extremity ultrasounds today to assess for presence of clot in the right lower extremity as well as establish a baseline prior to this upcoming AVIATION TECHNICIAN procedure. 2. Lab work today to include [...] Shannon Álvarez MD / Antoinette Schilling MD [facility] AVIATION TECHNICIAN Addendum 08/09/12: VL B/L LE ultrasound: negative [...] (specimen) 08/08/2012 17:05 EDT 08/08/2012 17:44 EDT us Minoo Leahyeau ENGLISH LANGUAGE ARTS TEACHER HEMATOLOGY & PF4 ORDERABLES Final Result Performing Organization Address [facility] de Phone Number [facility] [address] [place] [address] * PROTIME (08/08/2012 17:05 EDT) Pro Time 10.3 9.5 - 13.1 secs [facility] I.N.R. 0.9 0.9 - 1.1 Ratio [facility] Comment: Moderate Intensity Coumadin INR = 2.0-3.0 Adjustments in anticoagulant therapy dose should be based upon the INR and NOT the Pro Time. Blood specimen (specimen) 08/08/2012 17:05 EDT 08/08/2012 17:44 EDT us Minoo Leahykyleeu ENGLISH LANGUAGE ARTS TEACHER HEMATOLOGY & PF4 ORDERABLES Final Result Performing Organization Address [facility] de Phone Number [facility] [address] [place] [address] * D-DIMER (08/08/2012 17:05 EDT) Pathologist [facility] D-Dimer <200 <230 ng/mL [facility] Comment:CUTOFF VALUE FOR THE EXCLUSION OF DVT and PE: 230 ng/mL D-dimer units Blood specimen (specimen) 08/08/2012 17:05 EDT 08/08/2012 17:44 EDT us Minoo Yoou ENGLISH LANGUAGE ARTS TEACHER HEMATOLOGY & PF4 ORDERABLES Final Result Performing Organization Address [facility] de Phone Number [facility] [address] [place] [address] * VL LOWER VENOUS (DVT) BILATERAL (08/08/2012 17:05 EDT) Anatomical Region Laterality Modality Other 08/08/2012 17:0 5 EDT 08/09/2012 11:33 EDT Narrative 08/09/2012 11:33 EDT LOWER EXTREMITY VENOUS DUPLEX ULTRASOUND PROCEDURE: ??Bilateral Lower Extremity Venous Duplex. Common femoral, proximal profunda femoral, femoral, popliteal, posterior tibial, peroneal, and greater saphenous veins are routinely examined with 2D compression, color and spectral Doppler. [id number]. ? INDICATION: Pain, Swelling. ? HISTORY: ?Previous [...] with 2D compression, color and spectral Doppler. [id number]. INDICATION: Pain, Swelling. HISTORY: Previous DVT, Cancer. [...] venous thrombosis in the bilateral lower extremities. us Minoo Jacobs Parenteau ENGLISH LANGUAGE ARTS TEACHER IMG US VASCULAR ORDERABLES Final Result documented in this encounter Visit Diagnoses Diagnosis Hypercoagulation syndrome (HCC-CMS)- Primary Primary hypercoagulable state Leg pain, right Pain in limb documented in this encounter Care Teams First Sampler Relationship Specialty Start Date End Date Remedios Mehta MD [address] [place] [phone] PCP - General 02/19/09 01/04/15 documented as of this encounter
--- OUTSIDE RECORDS SUMMARY | 2024-09-17 15:22 | XMS_ITS | Encounter Summary ---
Author Organization [facility] Address [address] [place] [address] Care Team Providers Care Towel Distributor Name Role Phone Remedios Mehta MD Primary Care Provider +1 -[phone] Reason for Visit * Reason Onset Date Comments Medications Refill 10/05/2012 Encounter Details Date Type Department Care Team (Late st Contact Info) Description 10/05/[address] [address] Remedios Mehta MD [address] [place] [phone] Medications Refill Social History Tobacco Use [...] vaccination Need for prophylactic vaccination with combined pnvmdqprrj-goqragg-akqstixzj (DTP) vaccine Abdominal discomfort Abdominal pain, unspecified [...] documented as of this encounter Care Teams Towel Distributor Relationship Specialty Start Date End Date Remedios Mehta MD [address] [place] [phone] PCP - General 02/19/09 01/04/15 documented as of this encounter
--- OUTSIDE RECORDS SUMMARY | 2024-09-17 15:22 | XMS_ITS | Encounter Summary ---
Author Organization [facility] Address [address] [place] [address] Care Team Providers Care Distribution Manager Name Role Phone Remedios Mehta MD Primary Care Provider +1 -[phone] Encounter Details Date Type Department Care Team (Late st Contact Info) Description 09/04/2012 Orders Only [facility] Cancer Center Hematology & Oncology - [facility] [address] [place], [place] [address] Ly South RN [address] [place] [address] Hypercoagulable state (CMS-HCC) (HCC-CMS) (Primary Dx) Social [...] Refills Last Filled Start Date End Date enoxaparin (LOVENOX) 60 mg/0.6 mL injectionIndicatio ns:Hypercoagulable state (HCC-CMS) Inject 60 mg into the skin daily. 10 Syringe 0 09/04/2012 12/03/2012 documented in this encounter Plan of Treatment Not on file documented as of this encounter Visit Diagnoses Diagnosis Hypercoagulable state (HCC-CMS)- Primary Primary hypercoagulable state documented in this encounter Care Teams Distribution Manager Relationship Specialty Start Date End Date Remedios Mehta MD [address] [place] [phone] PCP - General 02/19/09 01/04/15 documented as of this encounter
--- OUTSIDE RECORDS SUMMARY | 2024-09-17 15:22 | XMS_ITS | Encounter Summary ---
Author Organization [facility] Address [address] [place] [address] Care Team Providers Care Laborer Tan House Name Role Phone Remedios Mehta MD Primary Care Provider +1 [phone] Reason for Visit * Reason Comments Asthma with fever intermitt ently over last 7 days Encounter Details Date Type Department Care Team (Late st Contact Info) Description 08/25/2012 16:28 EDT - 08/25/2012 19:01 EDT Hospital Encounter [facility] [address] [place] [address] [phone] Dayna Nava, STAFF INTERPRETER [address] [place], [place] [phone] Unknown, Provider, Pneumonia Discharge Disposition: Home or [...] documented in this encounter Discharge Instructions * Attachments The following attachments cannot be sent through Care Everywhere. * PNEUMONIA: AFTER YOUR VISIT (BAHAMIAN) documented in this encounter Medications at Time [...] hours as needed for Pain. 04/20/2010 3 albuterol (ACCUNEB) 0.63 mg/3 mL nebulizer solution Take 0.63 mg by nebulization every 4 hours as needed for Wheezing. 2 albuterol (PROVENTIL, VENTOLIN) 90 mcg/Actuation inhaler Inhale 2 Puffs as directed as needed for Wheezing. 2 azithromycin (ZITHROMAX) 250 mg tablet Take 2 tablets (500mg) by mouth on day 1, followed by 1 tablet (250mg) by mouth once daily on days 2 through 5. 6 Tab 0 08/26/2012 2 azithromycin (ZITHROMAX) 250 mg tablet Take 1 Tab by mouth daily for 4 days. 4 Tab 0 08/25/2012 2 budesonide-formo terol HFA (SYMBICORT) 80-4.5 mcg/actuation HFAA inhalerIndicatio ns:Asthma,Hyperl ipidemia,Need for Tdap vaccination,Abdo roque discomfort,IBS (irritable bowel syndrome),GERD (gastroesophagea l reflux disease) Inhale 2 Puffs as directed 2 times daily. 1 Inhaler 5 07/16/2012 3 duloxetine (CYMBALTA) 20 mg capsuleIndicatio ns:Depression, major Take 1 Cap by mouth 2 times daily. 60 Cap 4 04/04/2012 2 fluocinonide (LIDEX) 0.05 % cream Apply to affect area(s) as directed. 60 g 3 03/23/2012 3 fluticasone (FLONASE) 50 mcg/actuation nasal sprayIndications :Asthma,Hyperlip idemia,Need for Tdap vaccination,Abdo roque discomfort,IBS (irritable bowel syndrome),GERD (gastroesophagea l reflux disease) Instill 1 [place] into both nostrils daily. 1 Bottle 5 07/16/2012 3 hydrocodone-acet aminophen (LORTAB;VICODIN) 5-500 mg tabletIndication s:Arthritis Take 1 Tab by mouth every 6 hours as needed for Pain (up to 4 pills a day). 120 Tab 3 06/04/2012 3 hydroxychloroqui ne (PLAQUENIL) 200 mg tabletIndication s:Arthropathy,Ar thritis Take 1 Tab by mouth 2 times daily. 60 Tab 11 06/04/2012 3 ipratropium-albu terol (DUONEB) 0.5 mg-3 mg(2.5 mg base)/3 mL nebulizer solution Take 3 mL by nebulization every 4 hours as needed for Wheezing. 1 Box 1 08/25/2012 2 ketoconazole (NIZORAL) 2 % creamIndications :Rash Apply [...] mouth daily. 90 Tab 1 06/07/2012 3 predniSONE (DELTASONE) 10 mg tablet Take 40mg x 3 days, 20mg x 3 days, 10mg x 3 days then stop. 21 Tab 0 08/26/2012 2 predniSONE (DELTASONE) 20 mg tablet Take 1 Tab by mouth 2 times daily. 8 Tab 0 08/25/2012 2 trazodone (DESYREL) 100 mg tabletIndication s:Myalgia and myositis,Arthrop athy Take 2 Tabs by mouth. Take 1-2 tabs at bedtime for sleep as needed 56 Tab 1 08/15/2012 3 zafirlukast (ACCOLATE) 20 mg tabletIndication s:Asthma,Hyperli pidemia,Need for Tdap vaccination,Abdo roque discomfort,IBS (irritable bowel syndrome),GERD (gastroesophagea l reflux disease) Take 1 Tab by mouth 2 times daily. 60 Tab 5 08/22/2012 2 documented as of this encounter Ordered Prescriptions Prescription Sig Dispense Quantity Refills Last Filled Start Date End Date albuterol (PROVENTIL HFA, [...] for 4 days. 4 Tab 0 08/25/2012 2 predniSONE (DELTASONE) 20 mg tablet Take 1 Tab by mouth 2 times daily. 8 Tab 0 08/25/2012 2 ipratropium-albut den (DUONEB) 0.5 mg-3 mg(2.5 mg base)/3 mL nebulizer solution Take 3 mL by nebulization every 4 hours as needed for Wheezing. 1 Box 1 08/25/2012 2 documented in this encounter Discharge Disposition Disposition Code Departure Means Destination Home or Self Care Car documented in this encounter ED Notes * Kathy Muro RN - 08/25/2012 1645 EDT Pt is followed by Pulmonary at [facility]. Has been intermittently congested and coughing and [...] The history is provided by the patient (Lou- Jeannette). Review of Systems Constitutional: Negative for [...] (FLONASE) 50 mcg/actuation nasal spray Instill 1 [place] into both nostrils daily. 1 Bottle 5 [...] of further medications. [facility], the patient's pain was 4 on a zero to ten scale. Condition at departure from the [facility]: Improved 1. Pneumonia Dr. Jaswant Little [...] encounter Miscellaneous Notes * Scanned Note-Null - COFFEE SUPERVISOR, SCAN 2 - 08/29/2012 0946 EDT documented in this encounter Plan of [...] and agree with the findings. Dayna Nava STAFF INTERPRETER IMG DIAGNOSTIC IM AGING ORDERABLES Final Result documented in this encounter [...] 1700, Routine 1651 (Given - Provid er: Ktahy Muro RN) documented in this encounter Orders Nursing Count Last Ordered Date First Orde red Date PULSE OXIMETRY 1 08/25/2012 documented in this encounter Care Teams Laborer Tan House Relationship Specialty Start Date End Date Remedios Mehta MD [address] [place] [phone] PCP - General 02/19/09 01/04/15 documented as of this encounter
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
--- OUTSIDE RECORDS SUMMARY | 2024-09-17 15:22 | XMS_ITS | Encounter Summary ---
Author Organization [facility] Address [address] [place] [address] Care Team Providers Care Ice Cream Scooper Name Role Phone Remedios Mehta MD Primary Care Provider +1 [phone] Encounter Details Date Type Department Care Team (Late st Contact Info) Description 09/13/2012 11:27 EST - 09/13/2012 23:59 [facility] Hospital Encounter [place] [id number] [place] [address] Dayna Patterson, MULTIFOCAL LENS INSPECTOR [address] [place] [address] Discharge Disposition: Home or Self Care Social [...] times daily. 60 Cap 4 04/04/2012 2 enoxaparin (LOVENOX) 60 mg/0.6 mL injectionIndicat ions:Hypercoagul able state (HCC-CMS) Inject 60 mg into the skin daily. 10 Syringe 0 09/04/2012 3 fluocinonide (LIDEX) 0.05 % cream Apply to affect area(s) as directed. 60 g 3 03/23/2012 3 fluticasone (FLONASE) 50 mcg/actuation nasal sprayIndications :Asthma,Hyperlip idemia,Need for Tdap vaccination,Abdo roque discomfort,IBS (irritable bowel syndrome),GERD (gastroesophagea l reflux disease) Instill 1 [place] into both nostrils daily. 1 Bottle 5 [...] 90 Tab 1 06/07/2012 3 predniSONE (DELTASONE) 20 mg tablet Take 1 [...] 08/22/2012 2 documented as of this encounter Discharge Disposition Disposition Code Departure Means Destination Home or Self Detention documented in this encounter Plan of Treatment [...] is appreciated. Antoinette Schilling MD IMG DIAGNOSTIC IMAGING ORDERABL ES Final Result documented in this encounter Visit Diagnoses Not on filedocumented in this encounter Care Teams Ice Cream Scooper Relationship Specialty Start Date End Date Remedios Mehta MD [address] [place] [phone] PCP - General 02/19/09 01/04/15 documented as of this encounter
--- OUTSIDE RECORDS SUMMARY | 2024-09-17 15:22 | XMS_ITS | Encounter Summary ---
Author Organization [facility] Address [address] [place] [address] Care Team Providers Care Chair Mender Name Role Phone Remedios Mehta MD Primary Care Provider [phone] [phone] Reason for Visit * Reason Onset Date Comments Follow-up 09/04/2012 Encounter Details Date Type Department Care Team (Late st Contact Info) Description 09/04/2012 Telephone [facility] Hematology & Oncology - [place] [address] [place], [place] [id number] Minoo Messer NP [address] [facility], [address] [place] [address] Follow-up Social History Tobacco Use [...] on filedocumented in this encounter Care Teams Chair Mender Relationship Specialty Start Date End Date Remedios Mehta MD [address] [place] [phone] PCP - General 02/19/09 01/04/15 documented as of this encounter
--- OUTSIDE RECORDS SUMMARY | 2024-09-17 15:22 | XMS_ITS | Encounter Summary ---
Author Organization [facility] Address [address] [place] [address] Care Team Providers Care Leading Firefighter Name Role Phone Remedios Mehta MD Primary Care Provider [phone] [phone] Reason for Visit * Reason Onset Date Comments Medications Refill 08/15/2012 Encounter Details Date Type Department Care Team (Late st Contact Info) Description 08/15/[address] [address] Remedios Mehta MD [address] [place] [phone] Medications Refill Social History Tobacco Use [...] as needed 56 Tab 1 08/15/2012 3 documented in this encounter Miscellaneous Notes [...] documented as of this encounter Care Teams Leading Firefighter Relationship Specialty Start Date End Date Remedios Mehta MD [address] [place] [phone] PCP - General 02/19/09 01/04/15 documented as of this encounter
--- OUTSIDE RECORDS SUMMARY | 2024-09-17 15:22 | XMS_ITS | Encounter Summary ---
Author Organization [facility] Address [address] [place] [address] Care Team Providers Care Philosophy Professor Name Role Phone Remedios Mehta MD Primary Care Provider [phone] [phone] Encounter Details Date Type Department Care Team (Latest Contact Info) Description 07/18/2012 13:31 EDT - 07/18/2012 23:59 EDT Hospital Encounter [facility] [address] [place], [place] [address] Remedios Mehta MD [address] [place] [phone] Discharge Disposition: Auto Discharge Social History [...] this encounter Medications at Time of Discharge lubiprostone (AMITIZA) 24 mcg capsule Take 24 [...] as directed as needed for Wheezing. 2 budesonide (PULMICORT) 200 mcg/actuation inhalerIndicatio ns:Asthma,Hyperl ipidemia,Need for Tdap vaccination,Abdo roque discomfort,IBS (irritable bowel syndrome),GERD (gastroesophagea l reflux disease) Inhale 1 Puff as directed 2 times daily. 1 Inhaler 2 07/16/2012 2 budesonide-formo terol HFA (SYMBICORT) 80-4.5 mcg/actuation HFAA inhalerIndicatio ns:Asthma,Hyperl ipidemia,Need for Tdap vaccination,Abdo roque discomfort,IBS (irritable bowel syndrome),GERD (gastroesophagea l reflux disease) Inhale 2 Puffs as directed 2 times daily. 1 Inhaler 5 07/16/2012 3 CALCIUM CARBONATE/VITAMI N D3 (CALCIUM 600 WITH VITAMIN D3 ORAL) Take 600 mg by mouth 2 times daily. 2 duloxetine (CYMBALTA) 20 mg capsuleIndicatio ns:Depression, major Take 1 Cap by mouth 2 times daily. 60 Cap 4 04/04/2012 2 fluocinonide (LIDEX) 0.05 % cream Apply to affect area(s) as directed. 60 g 3 03/23/2012 3 fluticasone (FLONASE) 50 mcg/actuation nasal sprayIndications :Asthma,Hyperlip idemia,Need for Tdap vaccination,Abdo roque discomfort,IBS (irritable bowel syndrome),GERD (gastroesophagea l reflux disease) Instill 1 [place] into both nostrils daily. 1 Bottle [...] mouth daily. 90 Tab 4 07/16/2012 2 methotrexate 2.5 mg tabletIndication s:Arthritis Take 6 [...] sleep as needed 56 Tab 1 04/04/2012 2 zafirlukast (ACCOLATE) 20 mg tabletIndication s:Asthma,Hyperli pidemia,Need for Tdap vaccination,Abdo roque discomfort,IBS (irritable bowel syndrome),GERD (gastroesophagea l reflux disease) Take 1 Tab by mouth 2 times daily. 60 Tab 5 07/16/2012 2 documented as of this encounter Discharge Disposition Disposition Code Departure Means Destination Auto Discharge Home documented in this encounter Plan of Treatment Not on file documented as of this encounter Visit Diagnoses Not on filedocumented in this encounter Care Teams Philosophy Professor Relationship Specialty Start Date End Date Remedios Mehta MD [address] [place] [phone] PCP - General 02/19/09 01/04/15 documented as of this encounter
--- OUTSIDE RECORDS SUMMARY | 2024-09-17 15:22 | XMS_ITS | Encounter Summary ---
Author Organization [facility] Address [address] [place] [address] Care Team Providers Care Lace Winder Name Role Phone Remedios Mehta MD Primary Care Provider [phone] [phone] Reason for Visit * Reason Onset Date Comments Results 07/23/[address] scan , [place] Encounter Details Date Type Department Care Team (Late st Contact Info) Description 07/23/[address] [address] Remedios Mehta MD [address] [place] [phone] Results (labs and CT scan, US [...] on filedocumented in this encounter Care Teams Lace Winder Relationship Specialty Start Date End Date Remedios Mehta MD [address] [place] [phone] PCP - General 02/19/09 01/04/15 documented as of this encounter
--- OUTSIDE RECORDS SUMMARY | 2024-09-17 15:22 | XMS_ITS | Encounter Summary ---
Author Organization [facility] Address [address] [place] [address] Care Team Providers Care Veneer Sander Name Role Phone Remedios Mehta MD Primary Care Provider [phone] Reason for Visit * Reason Onset Date Comments New Patient Visit 07/19/2012 Encounter Details Date Type Department Care Team (Late st Contact Info) Description 07/19/2012 Telephone [facility] Pulmonology & Critical Care - [facility] [address] [place] [address] Remedios Mehta MD [address] [place] [phone] New Patient Visit Social History Tobacco [...] of rheumatologic ds. Per Dr. Strong from [facility]. Notes are in [facility]. Please call patient. documented in this encounter Plan of Treatment Not on file documented as of this encounter Visit Diagnoses Not on filedocumented in this encounter Care Teams Veneer Sander Relationship Specialty Start Date End Date Remedios Mehta MD [address] [place] [phone] PCP - General 02/19/09 01/04/15 documented as of this encounter
--- OUTSIDE RECORDS SUMMARY | 2024-09-17 15:22 | XMS_ITS | Encounter Summary ---
Author Organization [facility] Address [address] [place] [address] Care Team Providers Care Certified Anesthesiologist Assistant Name Role Phone Remedios Mehta MD Primary Care Provider +1 -[phone] Reason for Visit * Reason Comments Neck Pain Encounter Details Date Type Department Care Team (Late st Contact Info) Description 09/03/2012 9:30 EST Office Visit [facility] Interventional Pain [address] [place] [address] Abundio Tubbs, DO [address] [facility] [address] [place], [place] [address] Neck pain; Fibromyalgia; Low back pain Social [...] 09/03/2012 0908 EST Respiratory Rate 20 09/03/2012 09 EST Oxygen Saturation - - Inhaled Oxygen Concentration - - Weight 95.7 kg (211 lb) 09/03/2012 09 EST Height 152.4 cm (5') 09/03/2012 09 EST Body Mass Index 41.21 09/03/2012 0908 EST documented in this encounter Mental Status * Because of a physical, mental, or emotional condition, do you have serious difficulty concentrating, remembering, or making decisions? (5 years old or older) Answer Entry Date Author Yes 04/15/2010 17:15 EDT Bala Veronica RN documented in this encounter Ordered Prescriptions Prescription Sig Dispense Quantity Refills Last Filled Start Date End Date naproxen (NAPROSYN) 500 mg tablet Take 1 Tab by mouth 2 times daily with breakfast and dinner. 120 Each 0 09/03/2012 2 documented in this encounter Progress Notes * Dandy Lindquist MD - 09/03/2012945 EST [facility] Follow Up Note Patient [...] Ivy Rayo RN - 09/03/2012 0910 EST [facility] Rooming Note Does patient have a Densitometrist? yes Is patient NPO? (Solids since midnight [...] Lumbago documented in this encounter Care Teams Certified Anesthesiologist Assistant Relationship Specialty Start Date End Date Remedios Mehta MD [address] [place] [phone] PCP - General 02/19/09 01/04/15 documented as of this encounter
--- OUTSIDE RECORDS SUMMARY | 2024-09-17 15:22 | XMS_ITS | Encounter Summary ---
Author Organization [facility] Address [address] [place] [address] Care Team Providers Care Turbine Mechanic Name Role Phone Remedios Mehta MD Primary Care Provider +1 -[phone] Reason for Referral * Consult (Routine/Next Available) - Closed Specialty Diagnoses / Procedures Referred By Joao proctor Referred To Contact Plastic Surgery Diagnoses Breast lobule hyperplasia Obesity, Class III, BMI 40-49.9 (morbid obesity) ([facility]) Asthma with exacerbation Back pain Remedios Mehta MD Phone: tel: fax: Referral ID Status Reason Start Date Expiration Date V isits Requested Visits Authorized [id number] Closed Specialty Services Required 08/29/2012 1 1 [...] Class III, BMI 40-49.9 (morbid obesity) ([facility]) Remedios Mehta MD Phone: tel: fax: Irina Ang RD Phone: tel: fax: Referral ID Status Reason Start Date Expiration Date V isits Requested Visits Authorized [id number] Closed Specialty Services Required 08/29/2012 1 1 Question Answer Reason for Request: obesity, GERD, asthma Reason for Visit * Reason Comments Pneumonia wheezy, sob, Vaginal Bleeding Breast Reduction Obesity Encounter Details Date Type Department Care Team (Late st Contact Info) Description 08/29/2012 13:45 EDT Office Visit [address] [address] Remedios Mehta MD [address] [place] [phone] Asthma with exacerbation (Primary Dx); Obesity, Class III, BMI 40-49.9 (morbid obesity) (CMS-HCC) ([facility]); Breast lobule hyperplasia; Back pain; Thrush Social [...] 08/29/2012 1350 EDT documented in this encounter Mental Status [...] from the original note were not included. [facility] Patient Instructions Asthma Attacks: After Your Visit [...] Where can you learn more? Go to [email or web address] Enter F084 in the search box to learn more about Asthma Attacks: After Your Visit. ?? [phone] [email or web address]. Care instructions adapted under license by [facility], [facility]. This care instruction is for use with your licensed healthcare professional. If you have questions about a medical condition or this instruction, always ask your healthcare professional. [email or web address] disclaims any warranty or liability for your use of this information. Content Version: 9.2.368755; Last Revised: January 14, 2011 documented in this encounter Ordered Prescriptions Prescription Sig Dispense Quantity Refills Last Filled Start Date End Date nystatin (MYCOSTATIN) 100,000 unit/mL suspensionIndicatio ns:Thrush Take 5 mL by mouth 4 times daily. 240 mL 3 08/29/2012 09/12/2012 predniSONE (DELTASONE) 10 mg tabletIndications:A sthma with exacerbation Take 1 Tab by mouth [...] (FLONASE) 50 mcg/actuation nasal spray Instill 1 [place] into both nostrils daily. 1 Bottle 5 [...] daily. * Emily Gibson LPN - 08/29/2012 0786 EDT Small volume nebulizer treatment with duo neb given per Dr. Strong documented in this encounter Plan of Treatment Scheduled Referrals Name Type Priority Associated Diagnoses Orde r Schedule AMB CONSULT NUTRITION Outpatient Referral Routine Obesity, Class III, BMI 40-49.9 (morbid obesity) ([facility]) ([facility]) Ordered: 08/29/2012 AMB CONSULT PLASTIC SURGERY Outpatient Referral Routine Breast lobule hyperplasia Obesity, Class III, BMI 40-49.9 (morbid obesity) ([facility]) ([facility]) Asthma with exacerbation Back pain Ordered: 08/29/2012 documented as of this encounter Visit Diagnoses Diagnosis Asthma with exacerbation- Primary Unspecified asthma, with exacerbation Obesity, Class III, BMI 40-49.9 (morbid obesity) ([facility]) Morbid obesity Breast lobule hyperplasia Hypertrophy [...] X1, 1 dose, On Mon08/29/12 at 1430, RoutineIndications:Asthma with exacerbation Given 08/29/2012 14:47 EDT 3 mL Other [...] 08/29/2012 documented in this encounter Care Teams Turbine Mechanic Relationship Specialty Start Date End Date Remedios Mehta MD [address] [place] [phone] PCP - General 02/19/09 01/04/15 documented as of this encounter
--- OUTSIDE RECORDS SUMMARY | 2024-09-17 15:22 | XMS_ITS | Encounter Summary ---
Author Organization [facility] Address [address] [place] [address] Care Team Providers Care Test Analyst Name Role Phone Remedios Mehta MD Primary Care Provider +1 [phone] Encounter Details Date Type Department Care Team (Latest Contact Info) Description 07/20/2012 9:21 EDT - 07/20/2012 23:59 EDT Hospital Encounter [place] [address] [place], [place] [address] Remedios Mehta MD [address] [place] [phone] Discharge Disposition: Auto Discharge Social History [...] syndrome),GERD (gastroesophagea l reflux disease) Instill 1 [place] into both nostrils daily. 1 Bottle 5 [...] on filedocumented in this encounter Care Teams Test Analyst Relationship Specialty Start Date End Date Remedios Mehta MD [address] [place] [phone] PCP - General 02/19/09 01/04/15 documented as of this encounter
--- OUTSIDE RECORDS SUMMARY | 2024-09-17 15:22 | XMS_ITS | Encounter Summary ---
Author Organization [facility] Address [address] [place] [address] Care Team Providers Care Prison Teacher Name Role Phone Remedios Mehta MD Primary Care Provider + -[phone] Reason for Visit * Reason Onset Date Comments Breathing Problem 08/24/2012 flu Encounter Details Date Type Department Care Team (Late st Contact Info) Description 08/24/2012 Telephone [facility] Pulmonology & Critical Care - [facility] [address] [place], [place] [address] Roberto Hodges MD [address] [place], [place] [phone] Breathing Problem (flu) Social History Tobacco Use [...] Filled Start Date End Date predniSONE (DELTASONE) 10 mg tablet Take 40mg x 3 days, 20mg x 3 days, 10mg x 3 days then stop. 21 Tab 0 08/26/2012 2 azithromycin (ZITHROMAX) 250 mg tablet Take 2 tablets (500mg) by mouth on day 1, followed by 1 tablet (250mg) by mouth once daily on days 2 through 5. 6 Tab 0 08/26/2012 2 documented in this encounter Miscellaneous Notes * Telephone Encounter - Elda Yip, - 08/27/2012 0938 EDT Marin back from pharmacist at [facility]. Duo nebs and albuterol nebs are both approved and pt can curing pickling packer any time. Called pt back to report. She will have someone get them earlene. ONEL Apple. * Telephone Encounter - Elda Yip, RT - 08/27/2012 0925 EDT Called pt who [...] and will call me back .Elda Yip CLINICAL DOCUMENTATION DEVELOPER * Telephone Encounter - Roberto Hodges MD - 08/26/2012 1444 EDT Sounds reasonable to treat. Z alfred and prednisone taper e scribed. Please let her know. Thanks. * Telephone Encounter - Elda Yip, RT - 08/24/2012 1549 EDT Called pt [...] a year ago. Uses [facility] in [place]. Will relay to Dr Hodges for advice. ELDA YIP RT * Telephone Encounter - Rosalva Mukherjee - 08/24/2012 1039 EDT Pt has the flu and flow meter is below the red zone. Pt is light headed and coughing. Please call earlene documented in this encounter Plan of Treatment Not on file documented as of this encounter Visit Diagnoses Not on filedocumented in this encounter Care Teams Prison Teacher Relationship Specialty Start Date End Date Remedios Mehta MD [address] [place] [phone] PCP - General 02/19/09 01/04/15 documented as of this encounter
--- OUTSIDE RECORDS SUMMARY | 2024-09-17 15:22 | XMS_ITS | Encounter Summary ---
Author Organization [facility] Address [address] [place] [address] Care Team Providers Care Staking Engineer Name Role Phone Remedios Mehta MD Primary Care Provider +1 [phone] Reason for Visit * Reason Onset Date Comments Pain 07/18/2012 Encounter Details Date Type Department Care Team (Late st Contact Info) Description 07/18/2012 Telephone [facility] Interventional Pain [address] [place], [place] [phone] Abundio Tubbs, DO [address] [facility] [address] [place], [place] [address] Pain Social History Tobacco Use Types Packs/Day [...] on filedocumented in this encounter Care Teams Staking Engineer Relationship Specialty Start Date End Date Remedios Mehta MD [address] [place] [phone] PCP - General 02/19/09 01/04/15 documented as of this encounter
--- OUTSIDE RECORDS SUMMARY | 2024-09-17 15:22 | XMS_ITS | Encounter Summary ---
Author Organization [facility] Address [address] [place] [address] Care Team Providers Care Nail Making Machine Setter Name Role Phone Remedios Mehta MD Primary Care Provider +1 -[phone] Encounter Details Date Type Department Care Team (Late st Contact Info) Description 09/06/2012 9:10 EST Immunization [address] [id number] Unknown, Provider, Flu, Shot Need for influenza [...] influenza documented in this encounter Care Teams Nail Making Machine Setter Relationship Specialty Start Date End Date Remedios Mehta MD [address] [place] [phone] PCP - General 02/19/09 01/04/15 documented as of this encounter
--- OUTSIDE RECORDS SUMMARY | 2024-09-17 15:22 | XMS_ITS | Encounter Summary ---
Author Organization [facility] Address [address] [place] [address] Care Team Providers Care Dog Pound Attendant Name Role Phone Keshawn Mehta MD Primary Care Provider +1 -[phone] Encounter Details Date Type Department Care Team (Late st Contact Info) Description 09/17/2012 Results Only [facility] Laboratory Services - [facility] [address] [place] [phone] Antoinette Ambrose MD [address] [place] [phone] Social History Tobacco Use Types [...] when reading/interpreting unformatted reports. Name: ? ERIKA BETTENCOURT ? Accession #: ? [id number] ? : ? 1960 (Age: 52) ??F ? Collect Date: ? 09/17/2012 ? [facility] ? Receive Date: ? 09/17/2012 ? Provider: ANTOINETTE AMBROSE MD Copy to: KESHAWN SUÁREZ MD [...] ?Antibody (clone) ? Result A ?P16 (E6H4TM, [facility]) ?positive in rare cells ?MIB-1 (Ki-67)(rabbit [...] reagents' performance characteristics have been determined by [facility]. ??This laboratory is certified under the [...] Description: ? Received in normal saline labelled Rodrigue, Erika and A-ECC is a 1.5 x 1.2 [...] remaining specimen is submitted as (B2). ??(Ivone Simons)/[facility] End of Report PARKER LAMBERT 09/17/2012 09/17/2012 11: 03 EST us Antoinette Ambrose MD PATHOLOGY ORDERABLES Final Resu lt [facility] [address] [place] [address] documented in this encounter Visit Diagnoses Not on filedocumented in this encounter Care Teams Dog Pound Attendant Relationship Specialty Start Date End Date Keshawn Mehta MD [address] [place] [phone] PCP - General 02/19/09 01/04/15 documented as of this encounter
--- OUTSIDE RECORDS SUMMARY | 2024-09-17 15:22 | XMS_ITS | Encounter Summary ---
Author Organization [facility] Address [address] [place] [address] Care Team Providers Care Sap Technical Developer Name Role Phone Remedios Mehta MD Primary Care Provider +1 -[phone] Reason for Visit * Reason Onset Date Comments Advice Only 07/10/2012 Encounter Details Date Type Department Care Team (Late st Contact Info) Description 07/10/[address] [address] Remedios Mehta MD [address] [place] [phone] Advice Only Social History Tobacco Use [...] 07/10/2012 1402 EDT Cherelle was at the [facility]. She would like to talk with Dr Strong about her visit there. She is getting a lot of different reports about her health and has some questions about them. documented in this encounter Plan of Treatment Not on file documented as of this encounter Visit Diagnoses Not on filedocumented in this encounter Care Teams Sap Technical Developer Relationship Specialty Start Date End Date Remedios Mehta MD [address] [place] [phone] PCP - General 02/19/09 01/04/15 documented as of this encounter
--- OUTSIDE RECORDS SUMMARY | 2024-09-17 15:22 | XMS_ITS | Encounter Summary ---
Author Organization [facility] Address [address] [place] [address] Care Team Providers Care Supervisor Shipping Name Role Phone Keshawn Mehta MD Primary Care Provider +1 -[phone] Reason for Visit * Reason Comments Follow-up generalized joint pa in Encounter Details Date Type Department Care Team (Late st Contact Info) Description 10/11/2012 10:20 EST Office Visit [facility] Rheumatology & Immunology - [facility] [place] [address] [place] [address] Yovana Callejas MD [address] [place] [address] [phone] Myalgia and myositis (Primary Dx) Social History [...] Refills Last Filled Start Date End Date duloxetine (CYMBALTA) 60 mg capsuleIndications: Myalgia and [...] (FLONASE) 50 mcg/actuation nasal spray Instill 1 [place] into both nostrils daily. 1 Bottle 5 [...] Concern ??? Not on file Social History Rafi Has a daughter, , who lives in [place] with one son, Rickey, now 4 weeks [...] Normal gait. No assistive devices 5/5 hand steam pan sponger, biceps, triceps strength. Negative Tinel's no thenar [...] (Age: 52) F Collect Date: 09/17/2012 Location: [facility] Receive Date: 09/17/2012 Provider: KASANDRA AMBROSE [...] Block Antibody (clone) Result A P16 (E6H4TM, [facility]) positive in rare cells MIB-1 (Ki-67)(rabbit monoclonal [...] reagents' performance characteristics have been determined by [facility]. This laboratory is certified under the Clinical [...] as (A). Received in normal saline labelled Norrisrikaleigh, Erika and B-EMC and polyp is a [...] the remaining specimen is submitted as (B2). /diana End of Report Admission on 09/17/2012, Discharged on 09/17/2012 Component Date Value ??? Glucose, Fingerstick 09/17/2012 95 ??? Fish Checker ID 09/17/2012 [id number] Results Only on 09/06/2012 Component Date Value [...] completed 08/25/2012 10/11/2012 duloxetine (CYMBALTA) 20 mg capsuleIndications:aguilar Bender Take 1 Cap by mouth 2 times daily. Alternate therapy 04/04/2012 10/11/2012 documented as of this encounter Care Teams Supervisor Shipping Relationship Specialty Start Date End Date Keshawn Mehta MD [address] [place] [phone] PCP - General 02/19/09 01/04/15 documented as of this encounter
--- OUTSIDE RECORDS SUMMARY | 2024-09-17 15:22 | XMS_ITS | Encounter Summary ---
Author Organization [facility] Address [address] [place] [address] Care Team Providers Care City Treasurer Name Role Phone Remedios Mehta MD Primary Care Provider +1 -[phone] Reason for Referral * (Routine/Next Available) - Closed Specialty Diagnoses / Procedures Referred By Contac t Referred To Contact Diagnoses SOB (shortness of breath) on exertion Asthma Procedures LUNG VOLUMES (TLC,RV,FRC/TGV,SVC,RAW) Roberto Hodges MD Phone: tel: fax: Referral ID Status Reason Start Date Expiration Date Visits Re quested Visits Authorized [id number] Closed 08/01/2012 1 1 * (Routine/Next Available) - Closed Specialty Diagnoses / Procedures Referred By Contac t Referred To Contact Diagnoses Asthma SOB (shortness of breath) on exertion Procedures DIFFUSING CAPACITY (DLCO) Roberto Hodges MD Phone: tel: fax: Referral ID Status Reason Start Date Expiration Date Visits Re quested Visits Authorized [id number] Closed 08/01/2012 1 1 * (Routine/Next Available) - Closed Specialty Diagnoses / Procedures Referred By Contac t Referred To Contact Diagnoses Asthma SOB (shortness of breath) on exertion Procedures SPIROMETRY Roberto Hodges MD Phone: tel: fax: Referral ID Status Reason Start Date Expiration Date Visits Re quested Visits Authorized [id number] Closed 08/01/2012 1 1 * Cardiology (Routine/Next Available) - Closed Specialty Diagnoses / Procedures Referred By Joao proctor Referred To Contact Diagnoses Asthma SOB (shortness of breath) on exertion Procedures ECHOCARDIOGRAM Roberto Hodges MD Phone: tel: fax: Referral ID Status Reason Start Date Expiration Date Visits Re quested Visits Authorized [id number] Closed 08/01/2012 1 1 Reason for Visit * Reason Comments New Patient Visit Encounter Details Date Type Department Care Team (Late st Contact Info) Description 08/01/2012 15:15 EDT Office Visit [facility] Pulmonology & Critical Care - [address] [phone] Unknown, Provider, Solange Nur MD [address] [place] [phone] Roberto Hodges MD [address] [place], [place] [phone] Asthma (Primary Dx); SOB (shortness of breath) [...] EDT Height 153.8 cm (5' 0.55) 08/01/2012 1537 EDT Body Mass Index 42.38 08/01/2012 1537 EDT documented in this encounter Mental Status [...] been dictated. * Aruna Nam - 08/01/2012 1548 EDT Testing was performed and recorded in Snippets. See complete report in scanned documents. documented in this encounter Consult Notes * Roberto Hodges MD - 08/03/2012 1058 EDT DIVISION OF PULMONOLOGY CONSULTATION - 08/01/2012 Remedios Strong MD [address] [place] [address] Strong: Thank you requesting our [...] pressure 110/60, pulse 62, respiratory rate 14, otwhzceefw00% on room air. The patient is alert [...] Solange Gustafson MD - HERMINIA Cruz - Jeff Job ID: SM Doc ID: [id number] Ext Doc ID: [id number] cc: Remedios Strong MD documented in this encounter Plan of Treatment Not on file documented as of this encounter Procedures Procedure Name Priority Date/Time Associated Diagnosis Comments ECHOCARDIOGRAM Routine 08/17/2012 8:01 EDT Asthma SOB (shortness of breath) on exertion documented in this encounter Results * ECHOCARDIOGRAM (08/17/2012 8:01 EDT) Anatomical Region Laterality Modality Other 08/17/2012 8:01 EDT Narrative 08/17/2012 9:07 EDT *Interpreting Group:* *[facility]* [address] [place] [address] *STUDY CONCLUSIONS* Summary: ?? Left ventricle: The [...] ?Unknown, Doctor REFERRING ?Remedios Strong PERFORMING ?? [facility], Op ORDERING ? Luis Hodges REFERRING ?Luis Hodges POLE FRAME CONSTRUCTION WORKER ??Mago Ribeiro *PROCEDURE DATA* Procedure information: ??This study was interpreted by [facility] at [facility]. ??Study status: ??Routine. Transthoracic echocardiography. ??M-mode, complete 2D, complete spectral Doppler, and color Doppler. A Transthoracic Echocardiogram was performed. Scanning was performed from the parasternal, apical, subcostal, and suprasternal notch acoustic windows. Images were obtained using a Roebrt [id number] 8 cardiac ultrasound machine. Image quality [...] range. Electronically signed by David Nayak MD [id number] Procedure Note 08/17/2012 *Interpreting Group:* *[facility]* [address] [place] [address] *STUDY CONCLUSIONS* Summary: Left ventricle: The cavity [...] AM. ATTENDING Unknown, Doctor REFERRING Remedios Strong Fa, Op ORDERING Luis Hodges REFERRING Luis Hodges POLE FRAME CONSTRUCTION WORKER Mago Ribeiro *PROCEDURE DATA* Procedure information: This study was interpreted by [facility] at [facility]. Study status: Routine. Transthoracic echocardiography. M-mode, complete [...] range. Electronically signed by David Nayak MD [id number] Roberto Hodges MD CARDIAC ECHO ORDERABLES F inal Result documented in this [...] X1, 1 dose, On Mon08/01/12 at 1700, RoutineIndications:Asthma Given 08/01/2012 16:44 EDT 2 Puffs documented [...] 08/01/2012 documented in this encounter Care Teams City Treasurer Relationship Specialty Start Date End Date [place], Remedios Brook, MD [address] [place] [phone] PCP - General 02/19/09 3 documented as of this encounter
--- OUTSIDE RECORDS SUMMARY | 2024-09-17 15:22 | XMS_ITS | Encounter Summary ---
Author Organization [facility] Address [address] [place] [address] Care Team Providers Care Cnmt Name Role Phone Remedios Mehta MD Primary Care Provider +1 [phone] Encounter Details Date Type Department Care Team (Late st Contact Info) Description 07/13/2012 Abstract [facility] Rehabilitation Therapy - [address] [address] Yonathan Moreland MD Social History [...] on filedocumented in this encounter Care Teams Cnmt Relationship Specialty Start Date End Date Remedios Mehta MD [address] [place] [phone] PCP - General 02/19/09 01/04/15 documented as of this encounter
--- OUTSIDE RECORDS SUMMARY | 2024-09-17 15:22 | XMS_ITS | Encounter Summary ---
Author Organization [facility] Address [address] [place] [address] Care Team Providers Care Cork Insulation Installer Name Role Phone Remedios Mehta MD Primary Care Provider +1 [phone] Encounter Details Date Type Department Care Team (Late st Contact Info) Description 09/17/2012 6:25 EST - 09/17/2012 10:30 [facility] Hospital Encounter [facility] Perioperative Services- [facility] [address] [place], [place] [id number] Antoinette Schilling MD [address] [place] [address] Viky Britt [address] [place] [address] Mago Vallecillo MD [address] [place] [address] Discharge Disposition: Home or Self [...] 60 mg/0.6 mL injectionIndicat ions:Hypercoagul able state ([facility]-CMS) Inject 60 mg into the skin daily. 10 Syringe 0 09/04/2012 3 fluocinonide (LIDEX) 0.05 % cream Apply to affect area(s) as directed. 60 g 3 03/23/2012 3 fluticasone (FLONASE) 50 mcg/actuation nasal sprayIndications :Asthma,Hyperlip idemia,Need for Tdap vaccination,Abdo roque discomfort,IBS (irritable bowel syndrome),GERD (gastroesophagea l reflux disease) Instill 1 Cadet into both nostrils daily. 1 Bottle 5 [...] pain with activity. Left via WC with regional administrative assistant in stable condition. * Cathryn Licea RN [...] provided. * Isha Molina RN - 09/12/2012 6613 EST Cherelle Husain has been instructed as [...] yes methotrexate 2.5 mg tablet Takes on Mon. hydrocodone-acetaminophen (LORTAB;VICODIN) 5-500 mg tablet yes duloxetine (CYMBALTA) 20 mg capsule yes metoprolol (LOPRESSOR) 25 mg tablet yes fluocinonide (LIDEX) 0.05 % cream yes acetaminophen (TYLENOL) 650 mg tablet Prn to use if needed ketoconazole (NIZORAL) 2 % cream yes lubiprostone (AMITIZA) 24 mcg capsule yes MULTIVITAMINS (MULTIVITAMIN ORAL) 09/12/2012 documented in this encounter H&P Notes * POLICY MANAGER, SCAN 2 - 09/21/2012 1502 EST * Agueda Maldonado MD - 09/17/2012 0640 EST The preoperative history and physical which was performed within 30 days of this procedure has been reviewed and the clinically appropriate elements of the physical examination have been repeated. There are no changes to the documented history and physical or if so such changes are documented below: Liya complains of a 5/10 dull headache in [...] in . Agueda Maldonado MD 09/17/2012 6:57 Cosigned by Antoinette Schilling MD at 09/17/2012 7:22 EST documented in this encounter Procedure Notes * POLICY MANAGER, SCAN 2 - 09/21/2012 1505 ESTAssociated Order(s): PROCEDURE REPORTS - SCANNED * POLICY MANAGER, SCAN 2 - 09/21/2012 1502 ESTAssociated Order(s): ECG REPORT - SCANNED documented in this encounter Nursing Notes * POLICY MANAGER, SCAN 2 - 09/21/2012 1502 EST documented in this encounter OR Notes * OR PreOp - POLICY MANAGER, SCAN 2 - 09/21/2012 1502 EST * OR Surgeon - Agueda Maldonado MD - 09/18/2012 0931 EST OPERATIVE REPORT SERVICE DATE: 09/17/2012 SURGEON: Antoinette Schilling MD COMMISSION BROKER: Agueda Maldonado MD PREOPERATIVE DIAGNOSIS: Postmenopausal bleeding [...] was removed and appeared to be intact.The [place] curette was placed in the cavity and [...] PM / Agueda Maldonado MD mt Confirmation: [id number] Dictation ID: [id number] * OR PreOp - POLICY MANAGER, SCAN 2 - 09/17/2012 0842 EST * Anesthesia Procedure Notes - POLICY MANAGER, SCAN 2 - 09/17/2012 0840 EST * Anesthesia Preprocedure Evaluation - POLICY MANAGER, SCAN 2 - 09/17/2012 0758 EST * Anesthesia Preprocedure Evaluation - POLICY MANAGER, SCAN 2 - 09/17/2012 0741 EST documented in this encounter Miscellaneous Notes * Scanned Note-Null - POLICY MANAGER, SCAN 2 - 09/21/2012 1502 EST * Scanned Note-Null - POLICY MANAGER, SCAN 2 - 09/21/2012 1502 EST * [...] were reviewed: Temp: 35.9 ??C (96.6 ??F) (09/17/12 0945), Heart Rate: (ekg removed, making skin itch) (09/17/12 0945), BP: 106/67 mmHg (09/17/12 1000), Resp: [...] Brief operative Note Surgeon: Antoinette Schilling MD Revenue Enforcement Agent: Agueda Maldonado MD Pre-Op Dx/Indications: PMB with [...] EST Narrative 09/21/2012 15:37 EST Procedure Note POLICY MANAGER, SCAN 2 - 09/21/2012 15:05 EST us Scan 2 Loader Machine PROCEDURE/MINOR SURGICAL OR DERABLES Final Result * ECG REPORT - SCANNED (09/21/2012 15:02 EST) 09/21/2012 15:0 2 EST Narrative 09/21/2012 15:37 EST Procedure Note POLICY MANAGER, SCAN 2 - 09/21/2012 15:02 EST us Scan 2 Loader Machine PROCEDURE/MINOR SURGICAL OR DERABLES Final Result * GLUCOSE, GLUCOMETER (09/17/2012 6:52 EST) Glucose, Fingerstick 95 70 - 100 mg/dl [facility] Thermodynamicist ID [id number] [facility] Comment:Test Performed by [facility] Services 09/17/2012 6:52 EST 09/17/2012 6:56 EST us Antoinette Schilling MD CHEMISTRY & BLOOD GAS ORDERABLE S Final Result [facility] [address] [place] [address] documented in this encounter Visit Diagnoses Not [...] may reflect changes made after this encounter. CALCIUM CARBONATE/VITAMIN D3 (CALCIUM WITH VITAMIN D [...] Cathryn Licea RN)0933 (Given - Provider: Cathryn Licea RN) hydrocodone-acetaminophen (LORTAB;VICODIN) 5-500 mg tablet 1-2 Tab (CANCELED) 1-2 Tablet, oral, PRN, 2 doses, Starting on Mon09/17/12 at 0840, Until Mon09/17/12 at 1243, Pain, Routine 0906 (Given - Provid er: Cathryn Licea RN) ondansetron (PF) (ZOFRAN) injection 2 mg (COMPLETED) 2 mg, intravenous, PRN, 1 dose, Starting on Mon09/17/12 at 0901, Until Mon09/17/12 at 0909, Nausea, Vomiting, Routine, Recovery (only) 0909 (Given - Provid er: Cathryn Licea RN) [...] 09/17/2012 documented in this encounter Care Teams Cork Insulation Installer Relationship Specialty Start Date End Date Remedios Mehta MD [address] [place] [phone] PCP - General 02/19/09 01/04/15 documented as of this encounter
--- OUTSIDE RECORDS SUMMARY | 2024-09-17 15:22 | XMS_ITS | Encounter Summary ---
Author Organization [facility] Address [address] [place] [address] Care Team Providers Care Director Public Service Name Role Phone Remedios Mehta MD Primary Care Provider +1 [phone] Encounter Details Date Type Department Care Team (Late st Contact Info) Description 08/08/2012 Phlebotomy Only [facility] [address] [place] [address] Director Market Research, Outpatient Hypercoagulation syndrome (CMS-HCC) (HCC-CMS); Leg pain, [...] 08/08/2012 17:0 5 EDT 08/08/2012 17:44 EDT us Yovana Callejas MD HEMATOLOGY & PF4 ORDERAB LES Final Result Performing Organization Address [facility] Co de Phone Number [facility] [address] [place] [address] * (ABNORMAL) HEMAGRAM (08/08/2012 17:05 EDT) WBC [...] LAB PLT 324(H) 141 - 320 K/cmm [facility] RDW-CV 13.6 11.7 - 14.6 % [facility] 08/08/2012 17:0 5 EDT 08/08/2012 17:44 EDT us Yovana Callejas MD HEMATOLOGY & PF4 ORDERAB LES Final Result Performing Organization Address City/[facility]/ZIP Co de Phone Number [facility] [address] [place] [address] * COMPREHENSIVE METABOLIC PANEL (CMP) (08/08/2012 17:05 EDT) Potassium 4.4 3.5 - 5.0 mEq/L [facility] Sodium 140 136 - 145 mEq/L [facility] Chloride 102 96 - 110 mEq/L [facility] CO2 28 24 - 32 mEq/L [facility] Total Alkaline Phosphatase 68 38 [...] 08/08/2012 17:05 EDT 08/08/2012 17:44 EDT us Yovana Callejas MD CHEMISTRY & BLOOD GAS OR DERABLES Final Result Performing Organization Address [facility] de Phone Number [facility] [address] [place] [address] * PTT (08/08/2012 17:05 EDT) PTT 31 26 - 37 secs [facility] Comment:Therapeutic Heparin range: 65-100 seconds Blood specimen (specimen) 08/08/2012 17:05 EDT 08/08/2012 17:44 EDT us Minoo Messer NP HEMATOLOGY & PF4 ORDERABLES Final Result Performing Organization Address [facility] de Phone Number [facility] [address] [place] [address] * PROTIME (08/08/2012 17:05 EDT) Pro Time 10.3 9.5 - 13.1 secs [facility] I.N.R. 0.9 0.9 - 1.1 Ratio [facility] Comment: Moderate Intensity Coumadin INR = 2.0-3.0 Adjustments in anticoagulant therapy dose should be based upon the INR and NOT the Pro Time. Blood specimen (specimen) 08/08/2012 17:05 EDT 08/08/2012 17:44 EDT us Minoo Leahykyleeu WEB SPECIALIST HEMATOLOGY & PF4 ORDERABLES Final Result Performing Organization Address [facility] Co de Phone Number [facility] [address] [place] [address] * D-DIMER (08/08/2012 17:05 EDT) D-Dimer <200 <230 ng/mL [facility] Comment:CUTOFF VALUE FOR THE EXCLUSION OF DVT and PE: 230 ng/mL D-dimer units Blood specimen (specimen) 08/08/2012 17:05 EDT 08/08/2012 17:44 EDT Minoo Jacobs Gui WEB SPECIALIST HEMATOLOGY & PF4 ORDERABLES Final Result Performing Organization Address [facility] de Phone Number [facility] [address] [place] [address] documented in this encounter Visit Diagnoses Diagnosis Hypercoagulation syndrome (HCC-CMS) Primary hypercoagulable state Leg pain, right Pain in limb Arthropathy Arthropathy, unspecified, site unspecified Encounter for long-term (current) use of other medications documented in this encounter Care Teams Director Public Service Relationship Specialty Start Date End Date Remedios Mehta MD [address] [place] [phone] PCP - General 02/19/09 01/04/15 documented as of this encounter
--- OUTSIDE RECORDS SUMMARY | 2024-09-17 15:23 | XMS_ITS | Encounter Summary ---
Author Organization [facility] Address [address] [place] [address] Care Team Providers Care Flower Cutter Name Role Phone Remedios Mehta MD Primary Care Provider + -[phone] Reason for Visit * Reason Onset Date Comments Medications Refill 11/18/2011 Encounter Details Date Type Department Care Team (Late st Contact Info) Description 11/18/2011 Refill [facility] Rheumatology & Immunology - [facility] [address] [place], [place] [id number] Waleska Barboza MD [address] [facility] [place] [address] Medications Refill Social History Tobacco [...] Refills Last Filled Start Date End Date methotrexate 2.5 mg tablet Take 4 Tabs [...] documented as of this encounter Care Teams Flower Cutter Relationship Specialty Start Date End Date Remedios Mehta MD [address] [place] [phone] PCP - General 02/19/09 01/04/15 documented as of this encounter
--- OUTSIDE RECORDS SUMMARY | 2024-09-17 15:23 | XMS_ITS | Encounter Summary ---
Author Organization [facility] Address [address] [place] [address] Care Team Providers Care Machine Lead Burner Name Role Phone Remedios Mehta MD Primary Care Provider [phone] [phone] Reason for Visit * Reason Onset Date Comments Medications Refill 04/04/2012 Encounter Details Date Type Department Care Team (Late st Contact Info) Description 04/04/[address] [address] Remedios Mehta MD [address] [place] [phone] Medications Refill Social History Tobacco Use [...] Filled Start Date End Date duloxetine (CYMBALTA) 20 mg capsuleIndications: Depression, major Take 1 Cap by mouth 2 [...] documented as of this encounter Care Teams Machine Lead Burner Relationship Specialty Start Date End Date Remedios Mehta MD [address] [place] [phone] PCP - General 02/19/09 01/04/15 documented as of this encounter
--- OUTSIDE RECORDS SUMMARY | 2024-09-17 15:23 | XMS_ITS | Encounter Summary ---
Author Organization [facility] Address [address] [place] [address] Care Team Providers Care Cpr Ambulance Driver Name Role Phone Remedios Mehta MD Primary Care Provider +1 -[phone] Reason for Visit * Reason Comments Knee Injury left knee doi 7.26.1 2 Encounter Details Date Type Department Care Team (Late st Contact Info) Description 07/09/2012 9:40 EDT Office Visit [facility] Total Joint Program - [address] [place], [place] [id number] Yonathan Moreland MD Left knee DJD (Primary [...] program including low impact aerobic exercise - [email or web address] Walking for exercise three times a week [...] Established knee pain follow-up note: HPI: Cherelle Husain returns today for scheduled follow-up of her left knee area pain. She reports both WB arthralgia and intermittent locking up The patient's symptoms are gradually worsening The patient has tried OTC pain relievers with marginal relief. The patient has participated in a structured exercise program in pool with good success. The patient has not [...] comprehensive non-operative management plan. DISPOSITION: Follow-up in [facility] prn Cc: Remedios Strong MD documented in this encounter Plan of Treatment Not on file documented as of this encounter Visit Diagnoses Diagnosis Left knee DJD- Primary Osteoarthrosis, unspecified whether generalized or localized, lower leg Internal derangement of knee Unspecified internal derangement of knee Obesity (BMI 30-39.9) Obesity, unspecified documented in this encounter Care Teams Cpr Ambulance Driver Relationship Specialty Start Date End Date Remedios Mehta MD [address] [place] [phone] PCP - General 02/19/09 01/04/15 documented as of this encounter
--- OUTSIDE RECORDS SUMMARY | 2024-09-17 15:23 | XMS_ITS | Encounter Summary ---
Author Organization [facility] Address [address] [place] [address] Care Team Providers Care Brake Lining Driller Name Role Phone Remedios Mehta MD Primary Care Provider +1 -[phone] Encounter Details Date Type Department Care Team (Late st Contact Info) Description 01/13/2012 Abstract [facility] Medicine [address] [address] Remedios Mehta MD [address] [place] [phone] Social History Tobacco Use Types Packs/Day [...] on filedocumented in this encounter Care Teams Brake Lining Driller Relationship Specialty Start Date End Date Remedios Mehta MD [address] [place] [phone] PCP - General 02/19/09 01/04/15 documented as of this encounter
--- OUTSIDE RECORDS SUMMARY | 2024-09-17 15:23 | XMS_ITS | Encounter Summary ---
Author Organization [facility] Address [address] [place] [address] Care Team Providers Care Inspector Clip On Sunglasses Name Role Phone Remedios Mehta MD Primary Care Provider +1 -[phone] Reason for Visit * Reason Onset Date Comments Medication Questions 05/29/2012 Encounter Details Date Type Department Care Team (Late st Contact Info) Description 05/29/2012 Telephone [facility] Interventional Pain [address] [place] [address] Abundio Tubbs, DO [address] [facility] [address] [place], [place] [address] Medication Questions Social History Tobacco Use Types [...] Entry Date Author Yes 04/15/2010 17:15 EDT [place], [place] rykate, RN documented in this encounter Miscellaneous Notes [...] on filedocumented in this encounter Care Teams Inspector Clip On Sunglasses Relationship Specialty Start Date End Date Reemdios Mehta MD [address] [place] [phone] PCP - General 02/19/09 01/04/15 documented as of this encounter
--- OUTSIDE RECORDS SUMMARY | 2024-09-17 15:23 | XMS_ITS | Encounter Summary ---
Author Organization [facility] Address [address] [place] [address] Care Team Providers Care Photograph Retoucher Name Role Phone Remedios Mehta MD Primary Care Provider +1 -[phone] Reason for Visit * Reason Comments Rash On bilateral arms th at is spreading since Monday03/17/2012 Encounter Details Date Type Department Care Team (Late st Contact Info) Description 03/23/2012 11:00 EDT Office Visit [address] [phone] Abisai Garcia MD Dermatitis (Primary Dx) Social [...] 01/04/2012 1145 EST documented in this encounter Mental Status [...] Refills Last Filled Start Date End Date fluocinonide (LIDEX) 0.05 % cream Apply to [...] documented as of this encounter Care Teams Photograph Retoucher Relationship Specialty Start Date End Date Remedios Mehta MD [address] [place] [phone] PCP - General 02/19/09 01/04/15 documented as of this encounter
--- OUTSIDE RECORDS SUMMARY | 2024-09-17 15:23 | XMS_ITS | Encounter Summary ---
Author Organization [facility] Address [address] [place] [address] Care Team Providers Care Biology Teacher Name Role Phone Remedios Mehta MD Primary Care Provider +1 -[phone] Encounter Details Date Type Department Care Team (Late st Contact Info) Description 09/14/2011 Results Only [facility] Family Medicine - [address] [address] Remedios Mehta MD [address] [place] [phone] Social History Tobacco Use Types Packs/Day [...] any questions, please call Customer Service at [phone]. 09/14/2011 10:3 0 EST 09/14/2011 11:29 EST us Remedios Mehta MD CHEMISTRY & BLOOD GAS ORD ERABLES Final Result [facility] [address] [place] [address] documented in this encounter Visit Diagnoses Not on filedocumented in this encounter Care Teams Biology Teacher Relationship Specialty Start Date End Date Remedios Mehta MD [address] [place] [phone] PCP - General 02/19/09 01/04/15 documented as of this encounter
--- OUTSIDE RECORDS SUMMARY | 2024-09-17 15:23 | XMS_ITS | Encounter Summary ---
Author Organization [facility] Address [address] [place] [address] Care Team Providers Care Print Finisher Name Role Phone Remedios Mehta MD Primary Care Provider +1 -[phone] Reason for Visit * Reason Onset Date Comments Rectal Bleeding 07/08/2012 Encounter Details Date Type Department Care Team (Late st Contact Info) Description 07/08/[address] [address] Tessa Mcguire MD [address] [place] [address] Rectal Bleeding Social History Tobacco Use Types [...] filedocumented in this encounter Care Teams Print Finisher Relationship Specialty Start Date End Date Remedios Mehta MD [address] [place] [phone] PCP - General 02/19/09 01/04/15 documented as of this encounter
--- OUTSIDE RECORDS SUMMARY | 2024-09-17 15:23 | XMS_ITS | Encounter Summary ---
Author Organization [facility] Address [address] [place] [address] Care Team Providers Care Analytical Research Program Manager Name Role Phone Remedios Mehta MD Primary Care Provider +1 [phone] Encounter Details Date Type Department Care Team (Latest Contact Info) Description 03/28/2012 10:23 EDT Hospital Encounter [address] [address] Remedios Mehta MD [address] [place] [phone] Discharge Disposition: Home or Self Care [...] as directed as needed for Wheezing. 2 albuterol-ipratr opium (DUONEB) 0.5-2.5 mg/3 mL nebulizer solution Take 3 mL by nebulization every 4 hours as needed for Wheezing. 2 budesonide (PULMICORT) 200 mcg/Inhalation inhaler Inhale 1 Puff as directed 2 times daily. 1 Inhaler 2 02/10/2011 2 budesonide-formo terol (SYMBICORT) 80-4.5 mcg/Actuation HFAA inhaler Inhale 2 Puffs as directed 2 times daily. 1 Inhaler 5 03/17/2011 2 CALCIUM CARBONATE/VITAMI N D3 (CALCIUM 600 WITH VITAMIN D3 ORAL) Take 600 mg by mouth 2 times daily. 2 duloxetine (CYMBALTA) 20 mg capsuleIndicatio ns:Depression, major Take 1 Cap by mouth 2 times daily. 60 Cap 4 08/31/2011 2 fluocinonide (LIDEX) 0.05 % cream Apply to affect area(s) as directed. 60 g 3 03/23/2012 3 fluticasone (FLONASE) 50 mcg/Actuation nasal spray 1 [place] by Nasal route daily. 1 Bottle 5 03/17/2011 2 hydrocodone-acet aminophen (LORTAB;VICODIN) 5-500 mg per tabletIndication s:Arthritis Take 1 Tab by mouth every 8 hours as needed for Pain. 90 Tab 3 03/05/2012 2 hydroxychloroqui ne (PLAQUENIL) 200 mg tabletIndication s:Arthropathy Take 1 Tab by mouth 2 times daily. 180 Tab 1 11/18/2011 2 ketoconazole (NIZORAL) 2 % creamIndications :Rash Apply topically daily. Apply to affect area(s) as directed. 1 Tube 1 02/17/2010 1 loratadine (CLARITIN) 10 mg tabletIndication s:Allergic rhinitis Take 1 Tab by mouth daily. 90 Tab 1 06/08/2011 2 lovastatin (MEVACOR) 10 mg tabletIndication s:Hyperlipidemia Take 1 Tab by mouth daily. 90 Tab 4 07/06/2011 2 methotrexate 2.5 mg tablet Take 6 Tabs by mouth once a week. 24 Each 3 03/05/2012 2 metoprolol (LOPRESSOR) 25 mg tabletIndication s:Hypertension Take 1 Tab by mouth 2 times daily. 180 Tab 4 03/30/2011 2 pantoprazole (PROTONIX) 40 mg tabletIndication s:GERD (gastroesophagea l reflux disease) Take 1 Tab by mouth daily. 90 Tab 1 11/21/2011 2 trazodone (DESYREL) 100 mg tabletIndication s:Myalgia and myositis,Arthrop athy Take 2 Tabs by mouth. Take 1-2 tabs at bedtime for sleep as needed 56 Tab 1 11/18/2011 2 zafirlukast (ACCOLATE) 20 mg tabletIndication s:Asthma Take 1 Tab by mouth 2 times daily. 60 Tab 5 09/19/2011 2 documented as of this encounter Discharge Disposition Disposition Code Departure Means Destination Home or Self Prison documented in this encounter Plan of Treatment Not on file documented as of this encounter Visit Diagnoses Not on filedocumented in this encounter Care Teams Analytical Research Program Manager Relationship Specialty Start Date End Date Remedios Mehta MD [address] [place] [phone] PCP - General 02/19/09 01/04/15 documented as of this encounter
--- OUTSIDE RECORDS SUMMARY | 2024-09-17 15:23 | XMS_ITS | Encounter Summary ---
Author Organization [facility] Address [address] [place] [address] Care Team Providers Care Jig Borer Name Role Phone Remedios Mehta MD Primary Care Provider +1 -[phone] Reason for Visit * Reason Onset Date Comments Returning Call 01/11/2012 Encounter Details Date Type Department Care Team (Late st Contact Info) Description 01/11/[address] [address] Poly Miramontes LPN Returning Call Social History [...] on filedocumented in this encounter Care Teams Jig Borer Relationship Specialty Start Date End Date Remedios Mehta MD [address] [place] [phone] PCP - General 02/19/09 01/04/15 documented as of this encounter
--- OUTSIDE RECORDS SUMMARY | 2024-09-17 15:23 | XMS_ITS | Encounter Summary ---
Author Organization [facility] Address [address] [place] [address] Care Team Providers Care Vp & General Counsel Name Role Phone Remedios Mehta MD Primary Care Provider +1 [phone] Reason for Visit * Reason Onset Date Comments Medications Refill 06/04/2012 Encounter Details Date Type Department Care Team (Late st Contact Info) Description 06/04/2012 Refill [facility] Rheumatology & Immunology - [facility] [address] [place], [place] [phone] Robyn Nathan RN Medications Refill Social History Tobacco Use [...] Encounter - Robyn Nathan RN - 06/04/2012 1509 EDT Rx called in for Hydrocodone documented in this encounter Plan of Treatment Not on file documented as of this encounter Visit Diagnoses Not on filedocumented in this encounter Care Teams Vp & General Counsel Relationship Specialty Start Date End Date Remedios Mehta MD [address] [place] [phone] PCP - General 02/19/09 01/04/15 documented as of this encounter
--- OUTSIDE RECORDS SUMMARY | 2024-09-17 15:23 | XMS_ITS | Encounter Summary ---
Author Organization [facility] Address [address] [place] [address] Care Team Providers Care Vegetable Handler Name Role Phone Remedios Mehta MD Primary Care Provider +1 [phone] Reason for Visit * Reason Onset Date Comments Medications Refill 09/19/2011 Encounter Details Date Type Department Care Team (Late st Contact Info) Description 09/19/[address] [address] Remedios Mehta MD [address] [place] [phone] Medications Refill Social History Tobacco Use [...] End Date zafirlukast (ACCOLATE) 20 mg tabletIndications:A sthma Take 1 Tab by mouth 2 times daily. 60 Tab 5 09/19/2011 07/16/2012 pantoprazole (PROTONIX) 40 mg tabletIndications:G ERD (gastroesophageal reflux disease) Take 1 Tab by [...] documented as of this encounter Care Teams Vegetable Handler Relationship Specialty Start Date End Date Remedios Mehta MD [address] [place] [phone] PCP - General 02/19/09 01/04/15 documented as of this encounter
--- OUTSIDE RECORDS SUMMARY | 2024-09-17 15:23 | XMS_ITS | Encounter Summary ---
Author Organization [facility] Address [address] [place] [address] Care Team Providers Care Warehouse Supervisor Name Role Phone Remedios Mehta MD Primary Care Provider +1 [phone] Reason for Visit * Reason Comments Knee Pain bilateral Leg Pain bilateral Back Pain lower and uppper Neck Pain Shoulder Pain bilateral Encounter Details Date Type Department Care Team (Latest Contact Info) Description 05/22/2012 13:45 EDT Office Visit [facility] Interventional Pain [address] [place], [place] [id number] Abundio Tubbs, DO [address] [place] [address] [address] [place], [place] [address] Cervical spondylosis (Primary Dx); Chronic low back [...] 05/22/2012 1312 EDT documented in this encounter Mental Status * Because of a physical, mental, or emotional condition, do you have serious difficulty concentrating, remembering, or making decisions? (5 years old or older) Answer Entry Date Author Yes 04/15/2010 17:15 EDT Bala Veronica RN documented in this encounter Progress Notes * Edmund Yo MD - 05/22/2012 1436 EDT [facility] OP PAIN CONSULT Patient [...] fluticasone (FLONASE) 50 mcg/Actuation nasal spray 1 [place] by Nasal route daily. 1 Bottle 5 [...] Has a daughter, , who lives in [place] with one son, Rickey, now 4 weeks [...] encounter Miscellaneous Notes * Scanned Note-Null - DRYWALL HANGER, SCAN 2 - 05/24/2012 0945 EDT documented in this encounter Plan of Treatment Not on file documented as of this encounter Visit Diagnoses Diagnosis Cervical spondylosis- Primary Cervical spondylosis without myelopathy Chronic low back pain Lumbago Chronic neck pain Cervicalgia Lumbosacral spondylosis without myelopathy documented in this encounter Care Teams Warehouse Supervisor Relationship Specialty Start Date End Date Remedios Mehta MD [address] [place] [phone] PCP - General 02/19/09 01/04/15 documented as of this encounter
--- OUTSIDE RECORDS SUMMARY | 2024-09-17 15:23 | XMS_ITS | Encounter Summary ---
Author Organization [facility] Address [address] [place] [address] Care Team Providers Care Package Designer Name Role Phone Remedios Mehta MD Primary Care Provider +1 [phone] Reason for Visit * Reason Comments Joint Pain back , neck, hands/ no pain meds since Monday and she states adriana she has been having a flare since 2 weeks ago now Generalized Body Aches all over aches/ Encounter Details Date Type Department Care Team (Late st Contact Info) Description 03/05/2012 14:45 EDT Office Visit [facility] Rheumatology & Immunology - [address] [id number] Delia Perez, MARIA [address] [facility] [address] [place] [address] Fibromyalgia; Psoriatic arthritis (CMS-HCC) ([facility]); Degenerative disc disease; Arthritis Social History Tobacco [...] Filled Start Date End Date hydrocodone-acetam inophen (LORTAB;VICODIN) 5-500 mg per tabletIndications: Arthritis Take 1 Tab by mouth every 8 [...] fluticasone (FLONASE) 50 mcg/Actuation nasal spray 1 [place] by Nasal route daily. 1 Bottle 5 [...] dactylitis.MCP tenderness. Complete fists with strong symmetric oracle financial application developer strength Hips: SI joint tenderness and trochanteric [...] 55 EDT Degenerative disc disease Psoriatic arthritis ([facility]) ([facility]) CERVICAL SPINE 2-3 VIEWS Routine 03/28/2012 10:55 EDT Psoriatic arthritis ([facility]) ([facility]) Degenerative disc disease documented in this encounter Results * CERVICAL SPINE 2-3 VIEWS (03/28/2012 10:55 EDT) Anatomical Region Laterality Modality Other 03/28/2012 10:5 5 EDT 03/28/2012 11:19 EDT Narrative 03/28/2012 11:19 EDT CERVICAL SPINE 2-3 VIEWS ??March 28, 2012 10:55:00 AM Clinical History/Comments: 696.0-PSORIATIC IHCLXPACKWZ-OMQ-1-CM 722.6-DEGENERATION OF INTERVERTEBRAL DISC, SITE NUGSRMLDPXP-HFP-1-CM chronic neck pain with DJD Comparison: 2008 Findings: Small endplate osteophytes at C4, C5, C6, and C7. C6-C7 disc space narrowing, slightly progressed in severity since 2007. No prevertebral soft tissue swelling. Conclusion: Increased degenerative disc space narrowing at C6-C7. If focal neurologic symptoms exist, MRI may be useful. Procedure Note 03/28/2012 CERVICAL SPINE 2-3 VIEWS March 28, 2012 10:55:00 AM Clinical History/Comments: 696.0-PSORIATIC BQBQOOEJXLF-JYG-6-CM 722.6-DEGENERATION OF INTERVERTEBRAL DISC, SITE BFUFJWPHUOW-NWZ-4-CM chronic neck pain with DJD Comparison: 2007 Findings: Small endplate osteophytes at C4, C5, C6, and C7. C6-C7 disc space narrowing, slightly progressed in severity since 2007. No prevertebral soft tissue swelling. Conclusion: Increased degenerative disc space narrowing at C6-C7. If focal neurologic symptoms exist, MRI may be useful. Delia [facility] Final Result * L SPINE 2-3 VIEWS (03/28/2012 10:55 EDT) Anatomical Region Laterality Modality Other 03/28/2012 10:5 5 EDT 03/28/2012 11:20 EDT Narrative 03/28/2012 11:20 EDT L SPINE 2-3 VIEWS ??March 28, 2012 10:55:00 AM Clinical History/Comments: 722.6-DEGENERATION OF INTERVERTEBRAL DISC, SITE YYPOIONQOEZ-GFH-4-CM 696.0-PSORIATIC MXGRMMLIKXB-JOD-4-CM chronic back pain with DJD Comparison: No old studies Findings: Two-view lumbar spine. Vertebral body height and intervertebral the spaces are maintained at all levels. No fracture or dislocation. If focal neurological symptoms exist, MRI recommended. Procedure Note 03/28/2012 L SPINE 2-3 VIEWS March 28, 2012 10:55:00 AM Clinical History/Comments: 722.6-DEGENERATION OF INTERVERTEBRAL DISC, SITE KEHOURCNLOE-VBX-2-CM 696.0-PSORIATIC FQWXFNEBFLD-MFD-2-CM chronic back pain with DJD Comparison: No old studies Findings: Two-view lumbar spine. Vertebral body height and intervertebral the spaces are maintained at all levels. No fracture or dislocation. If focal neurological symptoms exist, MRI recommended. Delia [facility] Final Result * ANTI NUCLEAR ANTIBODY (03/05/2012 16:14 EDT) Anti Nuclear Ab <40 0 - 40 [facility] Blood specimen (specimen) 03/05/2012 16:14 EDT 03/05/2012 16:33 EDT Delia [facility] IMMUNOLOGY AND SEROLOGY ORD ERABLES Final Result Performing Organization Address [facility] de Phone Number [facility] [address] [place] [address] * SED. RATE:WESTERGREN (03/05/2012 16:14 EDT) Pathologist [facility] Sed. Rate Westergren 12 0 - 30 mm/hr [facility] Blood specimen (specimen) 03/05/2012 16:14 EDT 03/05/2012 16:33 EDT Delia [facility] HEMATOLOGY & PF4 ORDERABLES Final Result Performing Organization Address [facility] Phone Number [facility] [address] [place] [address] * DMARD PROFILE (03/05/2012 16:14 EDT) [facility] Total Alkaline Phosphatase 73 38 - 126 U/L [facility] AST 20 15 - 46 U/L [facility] ALT 30 9 - 52 U/L [facility] Albumin 4.1 3.4 - 4.9 g/dl [facility] Creatinine 0.75 0.52 - 1.04 mg/dl [facility] GFR, Calculated >60 >60 ml/min/1.7 3m2 [facility] Blood specimen (specimen) 03/05/2012 16:14 EDT 03/05/2012 16:33 EDT Delia [facility] CHEMISTRY & BLOOD GAS ORDER ONELIA Final Result Performing Organization Address [facility] de Phone Number [facility] [address] [place] [address] * HEMAGRAM AND DIFFERENTIAL (03/05/2012 16:14 EDT) [facility] WBC 7.04 4.0 - 12.4 K/cmm [facility] RBC 4.06 3.86 - 5.04 M/cmm [facility] Hemoglobin 12.9 11.6 - 15.2 gm/dl [facility] HCT 38.2 34.9 - 44.4 % [facility] MCV 94 81 - 98 fl [facility] MCH 31.9 26.7 - 33.3 pg [facility] MCHC 33.9 32.1 - 35.9 gm/dl [facility] PLT 278 141 - 320 K/cmm [facility] RDW-CV 13.3 11.7 - 14.6 % [...] Monocytes 0.65 0.1 - 0.8 K/cmm [facility] ABS Eosinophils 0.17 0.03 - 0.61 K/cmm [facility] ABS Basophils 0.03 0.01 - 0.11 K/cmm [facility] Type of Diff: Automated [facility] Blood specimen (specimen) 03/05/2012 16:14 EDT 03/05/2012 16:33 EDT us Delia [facility] PACKAGES & DNA PROBE ORDERA BLES Final Result [facility] [address] [place] [address] documented in this encounter Visit Diagnoses Diagnosis [...] documented as of this encounter Care Teams Package Designer Relationship Specialty Start Date End Date Remedios Mehta MD [address] [place] [phone] PCP - General 02/19/09 01/04/15 documented as of this encounter
--- OUTSIDE RECORDS SUMMARY | 2024-09-17 15:23 | XMS_ITS | Encounter Summary ---
Author Organization [facility] Address [address] [place] [address] Care Team Providers Care Cream Dumper Name Role Phone Remedios Mehta MD Primary Care Provider +1 -[phone] Reason for Visit * Reason Onset Date Comments Medications Refill 10/28/2011 Encounter Details Date Type Department Care Team (Late st Contact Info) Description 10/28/[address] [address] Remedios Mehta MD [address] [place] [phone] Medications Refill Social History Tobacco Use [...] documented as of this encounter Care Teams Cream Dumper Relationship Specialty Start Date End Date Remedios Mehta MD [address] [place] [phone] PCP - General 02/19/09 01/04/15 documented as of this encounter
--- OUTSIDE RECORDS SUMMARY | 2024-09-17 15:23 | XMS_ITS | Encounter Summary ---
Author Organization [facility] Address [address] [place] [address] Care Team Providers Care Oil Producer Name Role Phone Remedios Mehta MD Primary Care Provider +1 -[phone] Reason for Visit * Reason Comments Rectal Bleeding decreased appetite x 2 weeks.1st episode of bleeding 2 weeks ago with constipation and reoccured 2 days ago. pt has been clots. bloating and tenderness.c/o sweats. nausea. fatigue. pt has lightheadedness after straining. Encounter Details Date Type Department Care Team (Late st Contact Info) Description 07/09/2012 13:41 EDT - 07/09/2012 19:08 EDT Hospital Encounter [facility] Ur[facility] - [address] [address] Dayna Patterson, DIGITAL RESEARCH ANALYST [address] [place] [address] Urgency of urination; Stress incontinence, female; Constipation [...] Entry Date Author Yes 04/15/2010 17:15 EDT Tina Veronica RN documented in this encounter Discharge [...] fluticasone (FLONASE) 50 mcg/Actuation nasal spray 1 [place] by Nasal route daily. 1 Bottle 5 03/17/2011 2 hydrocodone-acet aminophen (LORTAB;VICODIN) 5-500 mg tabletIndication s:Arthritis [...] 3 lovastatin (MEVACOR) 10 mg tabletIndication s:Hyperlipidemia Take 1 Tab by mouth daily. 90 Tab 4 07/06/2011 2 methotrexate 2.5 mg tabletIndication s:Arthritis Take [...] 04/04/2012 2 zafirlukast (ACCOLATE) 20 mg tabletIndication s:Asthma [...] fluticasone (FLONASE) 50 mcg/Actuation nasal spray 1 [place] by Nasal route daily. 1 Bottle 5 [...] hemorrhoid, no fissure and anal tone normal. Java Application Developer during rectal exam given by TINA Brower. [...] Neg Neg Ketones Trace (*) Neg Specific [place] >=1.030 1.001 - 1.035 Blood Neg Neg pH 5.5 4.6 - 8.0 Protein Trace (*) Neg Urobilinogen 0.2 0.2 - 1.0 (E.U./dl) Nitrite Neg Neg Leuk Esterase Neg Neg Tech ID [id number] URINE MICROSCOPIC ONLY Component Value Range WBC, [...] a more serious problem related to her MOISTURE MACHINE TENDER issue. I have discussed all of this with the patient, and due to resolution of her constipation and feeling better today, she agrees to call her primary doctor and discuss further workup of blood in stool.It is noted that she has procrastinated in obtaining a MOISTURE MACHINE TENDER appointment for diagnostic workup of a thickened [...] of further medications. Upon departure from the [facility], the patient's pain was 0 on a zero to ten scale. Condition at departure from the [facility]: Improved 1. Urgency of urination POCT URINE [...] hernia, appy, work-up for uterine cancer by MOISTURE MACHINE TENDER ongoing Comparison: None Findings: A PA view [...] Review and summarize past medical records: yes (07/11/12- Office nurse note excerpt: Hasn't had a [...] 07/09/2012 1343 EDT Pt sent here by [facility] for 3 days of rectal bleeding, not profuse. Vital signs are stable. documented in this encounter Miscellaneous Notes * Scanned Note-Null - COMFORT ADVISOR, SCAN 2 - 07/13/2012 0551 EDT documented in this encounter Plan of [...] LAB Crystals, UA None seen /HPF [facility] Hyaline Casts, UA None seen /LPF [facility] UA Comment Microscopic results [facility] Comment: are unreliable on urines unrefrig >2hrs or refrig >8hrs. Mucus, UA Present [facility] Comment:Performed at [facility], [place], [place] Urine specimen (specimen) URINE / Unknown 07/09/2012 17:20 EDT 07/09/2012 17:33 EDT Dayna Patterson APRN URINALYSIS ORDERA BLES Final Result [facility] [address] [place] [address] * (ABNORMAL) POCT URINE DIPSTICK (07/09/2012 17:20 EDT) Color YELLOW [facility] Clarity, UA CLOUDY [facility] Glucose Neg Neg [facility] Bilirubin Neg Neg [facility] Ketones Trace(A) Neg [facility] Specific [place] >=1.030 1.001 - 1.035 [facility] Blood Neg Neg [facility] pH 5.5 4.6 - 8.0 [facility] Protein Trace(A) Neg [facility] Urobilinogen 0.2 0.2 - 1.0 E.U./dl [facility] Nitrite Neg Neg [facility] Leuk Esterase Neg Neg [facility] salon professional ID [id number] [facility] Comment:Test performed at [facility] Urine specimen (specimen) 07/09/2012 17:20 EDT 07/09/2012 17:27 EDT Dayna Patterson DIGITAL RESEARCH ANALYST POINT OF CARE SANDRA T ORDERABLES Final Result [facility] [address] [place] [address] * ACUTE ABDOMEN SERIES (07/09/2012 17:04 EDT) [...] hernia, appy, work-up for uterine cancer by MOISTURE MACHINE TENDER ongoing Comparison: None Findings: A PA view [...] hernia, appy, work-up for uterine cancer by MOISTURE MACHINE TENDER ongoing Comparison: None Findings: A PA view [...] at the time of interpretation. Dayna Patterson APRN IMG DIAGNOSTIC IM AGING ORDERABLES Final Result [...] 07/2012 documented in this encounter Care Teams Oil Producer Relationship Specialty Start Date End Date Remedios Mehta MD [address] [place] [phone] PCP - General 02/19/09 01/04/15 documented as of this encounter
--- OUTSIDE RECORDS SUMMARY | 2024-09-17 15:23 | XMS_ITS | Encounter Summary ---
Author Organization [facility] Address [address] [place] [address] Care Team Providers Care Photo Lab Technician Name Role Phone Remedios Mehta MD Primary Care Provider +1 -[phone] Reason for Visit * Reason Onset Date Comments Results 05/28/2012 Encounter Details Date Type Department Care Team (Late st Contact Info) Description 05/28/[address] [address] Remedios Mehta MD [address] [place] [phone] Results Social History Tobacco Use Types [...] on filedocumented in this encounter Care Teams Photo Lab Technician Relationship Specialty Start Date End Date Remedios Mehta MD [address] [place] [phone] PCP - General 02/19/09 01/04/15 documented as of this encounter
--- OUTSIDE RECORDS SUMMARY | 2024-09-17 15:23 | XMS_ITS | Encounter Summary ---
Author Organization [facility] Address [address] [place] [address] Care Team Providers Care Engraver Flatware Name Role Phone Remedios Mehta MD Primary Care Provider +1 -[phone] Encounter Details Date Type Department Care Team (Late st Contact Info) Description 01/10/2012 14:53 EDT - 01/10/2012 23:59 EDT Hospital Encounter [facility] [address] [place] [address] Manasa Luciano PA-C [address] [place] [phone] Discharge Disposition: Auto Discharge Social History Tobacco [...] Ma rykate, RN documented in this encounter Medications at [...] mg by mouth 2 times daily. 2 cyclobenzaprine (FLEXERIL) 10 mg tabletIndication s:Multiple contusions Take 1 Tab by mouth every 8 hours as needed for Muscle Spasms. 30 Tab 0 01/04/2012 2 duloxetine (CYMBALTA) 20 mg capsuleIndicatio ns:Depression, major Take 1 Cap by mouth 2 times daily. 60 Cap 4 08/31/2011 2 fluticasone (FLONASE) 50 mcg/Actuation nasal spray 1 [place] by Nasal route daily. 1 Bottle 5 03/17/2011 2 hydrocodone-acet aminophen (LORTAB;VICODIN) 5-500 mg per tabletIndication s:Arthritis Take 1 Tab by mouth every 6 hours as needed for Pain. 84 Tab 1 10/31/2011 03/15/201 2 hydroxychloroqui ne (PLAQUENIL) 200 mg tabletIndication s:Arthropathy Take 1 Tab by mouth 2 times daily. 180 Tab 1 11/18/2011 2 ketoconazole (NIZORAL) 2 % creamIndications :Rash Apply topically daily. Apply to affect area(s) as directed. 1 Tube 1 02/17/2010 1 loratadine (CLARITIN) 10 mg tabletIndication s:Allergic rhinitis Take 1 Tab by mouth daily. 90 Tab 1 06/08/2011 2 lorazepam (ATIVAN) 0.5 mg Tab Take 0.5 mg by mouth as needed. 2 lovastatin (MEVACOR) 10 mg tabletIndication s:Hyperlipidemia Take 1 Tab by mouth daily. 90 Tab 4 07/06/2011 2 methotrexate 2.5 mg tablet Take 4 Tabs by mouth once a week. 16 Each 3 11/18/2011 2 metoprolol (LOPRESSOR) 25 mg tabletIndication s:Hypertension [...] on filedocumented in this encounter Care Teams Engraver Flatware Relationship Specialty Start Date End Date Remedios Mehta MD [address] [place] [phone] PCP - General 02/19/09 01/04/15 documented as of this encounter
--- OUTSIDE RECORDS SUMMARY | 2024-09-17 15:23 | XMS_ITS | Encounter Summary ---
Author Organization [facility] Address [address] [place] [address] Care Team Providers Care Bedspread Cutter Name Role Phone Remedios Mehta MD Primary Care Provider +1 -[phone] Reason for Visit * Reason Onset Date Comments Medications Refill 01/12/2012 Encounter Details Date Type Department Care Team (Late st Contact Info) Description 01/12/[address] [address] Remedios Mehta MD [address] [place] [phone] Medications Refill Social History Tobacco Use [...] Date - 3 Next Visit Date - 02.01.12 Is patient out of medication? unknown documented [...] documented as of this encounter Care Teams Bedspread Cutter Relationship Specialty Start Date End Date Remedios Mehta MD [address] [place] [phone] PCP - General 02/19/09 01/04/15 documented as of this encounter
--- OUTSIDE RECORDS SUMMARY | 2024-09-17 15:23 | XMS_ITS | Encounter Summary ---
Author Organization [facility] Address [address] [place] [address] Care Team Providers Care Combat Systems Operator Mine Warfare Name Role Phone Remedios Mehta MD Primary Care Provider +1 -[phone] Reason for Visit * Reason Comments Neck Pain Shoulder Pain bilateral shoulder p ain Arm Pain bilateral arm pain Back Pain upper back pain Encounter Details Date Type Department Care Team (Latest Contact Info) Description 07/06/2012 8:[address] [facility] Interventional Pain [address] [place], [place] [phone] Abundio Tubbs, DO [address] [place] [address] [address] [place], [place] [address] Chronic neck pain; Cervical spondylosis Social History [...] (96.2 ??F) 07/06/2012820 EDT Respiratory Rate 16 07/06/201249 EDT Oxygen Saturation - - Inhaled Oxygen Concentration - - Weight 97.5 kg (215 lb) 07/06/2012820 EDT Height 152.4 cm (5') 07/06/2012820 EDT Body Mass Index 41.99 07/06/2012820 EDT documented in this encounter Mental Status * Because of a physical, mental, or emotional condition, do you have serious difficulty concentrating, remembering, or making decisions? 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 Yes Is patient NPO? (Solids since [...] encounter Miscellaneous Notes * Scanned Note-Null - REMOTE SENSING SURVEYOR, SCAN 2 - 07/11/2012 1222 EDT documented in this encounter Plan of Treatment Not on file documented as of this encounter Visit Diagnoses Diagnosis Chronic neck pain Cervicalgia Cervical spondylosis Cervical spondylosis without myelopathy documented in this encounter Care Teams Combat Systems Operator Mine Warfare Relationship Specialty Start Date End Date Remedios Mehta MD [address] [place] [phone] PCP - General 02/19/09 01/04/15 documented as of this encounter
--- OUTSIDE RECORDS SUMMARY | 2024-09-17 15:23 | XMS_ITS | Encounter Summary ---
Author Organization [facility] Address [address] [place] [address] Care Team Providers Care Intelligence Director Name Role Phone Remedios Mehta MD Primary Care Provider +1 -[phone] Reason for Referral * Radiology Services (Routine/Next Available) - Closed Specialty Diagnoses / Procedures Referred By Contac t Referred To Contact Diagnoses Knee pain Procedures KNEE 1 OR 2 VIEWS Yonathan Moreland MD Referral ID Status Reason Start Date Expiration Date Visits Re quested Visits Authorized [id number] Closed 07/04/2012 1 1 * Radiology Services (Routine/Next Available) - Closed Specialty Diagnoses / Procedures Referred By Contac t Referred To Contact Diagnoses Knee pain Procedures KNEE 1 OR 2 VIEWS Yonathan Moreland MD Referral ID Status Reason Start Date Expiration Date Visits Re quested Visits Authorized [id number] Closed 07/04/2012 1 1 Encounter Details Date Type Department Care Team (Late st Contact Info) Description 07/03/2012 Orders Only [facility] Total Joint Program - [address] [place], [place] [phone] Yonathan Moreland MD Knee pain (Primary Dx) [...] AM Clinical History/Comments: 719.46-PAIN IN JOINT, LOWER KRC-DBG-7-CM; left knee pain Comparison: Prior radiographs the [...] AM Clinical History/Comments: 719.46-PAIN IN JOINT, LOWER CQE-AQA-8-CM; left knee pain Comparison: Prior radiographs the [...] possible knee joint effusion. Yonathan Moreland MD [facility] DIAGNOSTIC IMAGING ORDERABLES Final Result * KNEE 1 OR 2 VIEWS (07/09/2012 9:33 EDT) Anatomical Region Laterality Modality Other 07/09/2012 9:33 EDT 07/10/2012 10:22 EDT Narrative 07/10/2012 10:22 EDT KNEE 1 OR 2 VIEWS ??Jul 09, 2012 09:33:00 AM Clinical History/Comments: 719.46-PAIN IN JOINT, LOWER IUL-GAR-1-CM; left knee pain Comparison: Prior radiographs the [...] AM Clinical History/Comments: 719.46-PAIN IN JOINT, LOWER VFQ-OED-2-CM; left knee pain Comparison: Prior radiographs the [...] possible knee joint effusion. Yonathan Moreland MD IM DIAGNOSTIC IMAGING ORDERABLES Final Result documented in this encounter Visit Diagnoses Diagnosis Knee pain- Primary Pain in joint, lower leg documented in this encounter Care Teams Intelligence Director Relationship Specialty Start Date End Date Remedios Mehta MD [address] [place] [phone] PCP - General 02/19/09 01/04/15 documented as of this encounter
--- OUTSIDE RECORDS SUMMARY | 2024-09-17 15:23 | XMS_ITS | Encounter Summary ---
Author Organization [facility] Address [address] [place] [address] Care Team Providers Care Drop Wire Builder Name Role Phone Remedios Mehta MD Primary Care Provider +1 -[phone] Encounter Details Date Type Department Care Team (Late st Contact Info) Description 04/04/[address] [address] Remedios Mehta MD [address] [place] [phone] Social History Tobacco Use Types Packs/Day [...] on filedocumented in this encounter Care Teams Drop Wire Builder Relationship Specialty Start Date End Date Remedios Mehta MD [address] [place] [phone] PCP - General 02/19/09 01/04/15 documented as of this encounter
--- OUTSIDE RECORDS SUMMARY | 2024-09-17 15:23 | XMS_ITS | Encounter Summary ---
Author Organization [facility] Address [address] [place] [address] Care Team Providers Care Senior Linux Unix Engineer Name Role Phone Remedios Mehta MD Primary Care Provider + -[phone] Reason for Referral * Consult (Routine/Next Available) - Closed Specialty Diagnoses / Procedures Referred By Joao proctor Referred To Contact Orthopedic Surgery Diagnoses Knee pain, left Elise Valle NP Phone: tel: fax: [facility] [address] [place] [address] Referral ID Status Reason Start Date Expiration Date V isits Requested Visits Authorized [id number] Closed Specialty Services Required 05/24/2012 1 1 [...] Info) Description 05/24/2012 10:15 EDT Office Visit [facility] Family Medicine - [address] [phone] Elise Valle NP [address] [place] [phone] Knee pain, left (Primary Dx) Social History [...] 05/24/2012 1010 EDT documented in this encounter Mental Status [...] fluticasone (FLONASE) 50 mcg/Actuation nasal spray 1 [place] by Nasal route daily. 1 Bottle 5 [...] Signs and Symptoms/Comments: ??719.46-PAIN IN JOINT, LOWER AQZ-SBK-9-CM; left knee pain after fall 2 wks [...] Signs and Symptoms/Comments: 719.46-PAIN IN JOINT, LOWER ONE-ENZ-6-CM; left knee pain after fall 2 wks [...] No fracture or dislocation identified. Elise Valle NP IMG DIAGNOSTIC IMAGING ORDERABL ES Final Result documented in this encounter Visit Diagnoses Diagnosis Knee pain, left- Primary Pain in joint, lower leg documented in this encounter Care Teams Senior Linux Unix Engineer Relationship Specialty Start Date End Date Remedios Mehta MD [address] [place] [phone] PCP - General 4/23/09 3/8/15 documented as of this encounter
--- OUTSIDE RECORDS SUMMARY | 2024-09-17 15:23 | XMS_ITS | Encounter Summary ---
Author Organization [facility] Address [address] [place] [address] Care Team Providers Care Automatic Punch Press Operator Name Role Phone Remedios Mehta MD Primary Care Provider +1 -[phone] Reason for Referral * Consult, Test and Treat (Routine/Next Available) - Closed Specialty Diagnoses / Procedures Referred By [facility] Referred To Contact Diagnoses Back pain Delia Perez PA Phone: tel: Referral ID Status Reason Start Date Expiration Date V isits Requested Visits Authorized [id number] Closed Specialty Services Required 04/16/2012 1 1 Question Answer Reason for Request: chronic low back pain * Consult (Routine/Next Available) - Closed Specialty Diagnoses / Procedures Referred By [facility] Referred To Contact Pain Medicine Diagnoses DDD (degenerative disc disease), cervical Delia Perez PA Phone: tel: [facility]ventional Pain [address] [place] [address] Phone: tel: fax: Referral ID Status Reason Start Date Expiration Date V isits Requested Visits Authorized [id number] Closed Specialty Services Required 04/16/2012 1 1 Question Answer Reason for Request: degenerative disc disease neck-ongoing pain Reason for Visit * Reason Onset Date Comments Fibromyalgia 03/19/2012 Arthritis 03/19/2012 Update 03/19/2012 03.05.2012 appt [facility] Anh Encounter Details Date Type Department Care Team (Late st Contact Info) Description 03/19/2012 Telephone [facility] Rheumatology & Immunology - [address] [address] Delia Perez PA [address] [facility] [place] [address] Fibromyalgia; Arthritis; Update (03.05.2012 appt with Anh) [...] 1409 EDT Left message for patient at [phone] for patient-(listed as her home number.) Her [...] unspecified documented in this encounter Care Teams Automatic Punch Press Operator Relationship Specialty Start Date End Date Remedios Mehta MD [address] [place] [phone] PCP - General 02/19/09 01/04/15 documented as of this encounter
--- OUTSIDE RECORDS SUMMARY | 2024-09-17 15:23 | XMS_ITS | Encounter Summary ---
Author Organization [facility] Address [address] [place] [address] Care Team Providers Care Customer Consulting Manager Name Role Phone Remedios Mehta MD Primary Care Provider +1 -[phone] Reason for Visit * Reason Comments Fall fell last night on c ement, now having right hand, right face, back and shoulder pain and right leg pain Encounter Details Date Type Department Care Team (Late st Contact Info) Description 01/04/2012 11:[address] [facility] Family Medicine - [address] [phone] Manasa Luciano PA-C [address] [place] [phone] Multiple contusions (Primary Dx) Social History Tobacco [...] Refills Last Filled Start Date End Date cyclobenzaprine (FLEXERIL) 10 mg tabletIndications: Multiple contusions Take 1 Tab by mouth every 8 hours as needed for Muscle Spasms. 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 1 Bottle 5 [...] PM Signs and Symptoms/Comments: ??924.9-CONTUSION OF UNSPECIFIED BKDW-EVA-2-CM f/u films s/p fall on right knee with ? non displaced fx on original film changed to 4 views per Jaimee at office-[facility] Comparison: 01/04/2012, 08/15/2011 Findings: Four views of [...] PM Signs and Symptoms/Comments: 924.9-CONTUSION OF UNSPECIFIED HPAZ-QTN-6-CM f/u films s/p fall on right knee with ? non displaced fx on original film changed to 4 views per Jaimee at office-l Comparison: 01/04/2012, 08/15/2011 Findings: Four views of [...] interpretation and agree with the findings. us Manasa Luciano PA-C IMG DIAGNOSTIC IMAG ING ORDERABLES Final Result * KNEES 3 VIEWS (01/04/2012 13:01 EST) [...] be helpful. No other abnormality is seen. us Manasa Luciano PA-C IMG DIAGNOSTIC IMAG ING ORDERABLES Final Result documented in this encounter Visit Diagnoses Diagnosis Multiple contusions- Primary Contusion of unspecified site documented in this encounter Discontinued Medications Medication Sig Discontinue Reason Start Date End Da te cyclobenzaprine (FLEXERIL) 10 mg tabletIndications:Multip le contusions Take 1 Tab by mouth every 8 hours as needed for Muscle Spasms. Reorder 01/04/2012 01/04/2012 documented as of this encounter Care Teams Customer Consulting Manager Relationship Specialty Start Date End Date Remedios Mehta MD [address] [place] [phone] PCP - General 02/19/09 01/04/15 documented as of this encounter
--- OUTSIDE RECORDS SUMMARY | 2024-09-17 15:23 | XMS_ITS | Encounter Summary ---
Author Organization [facility] Address [address] [place] [address] Care Team Providers Care Cigarette Seller Name Role Phone Remedios Mehta MD Primary Care Provider +1 -[phone] Reason for Visit * Reason Onset Date Comments Medications Refill 11/18/2011 Encounter Details Date Type Department Care Team (Late st Contact Info) Description 11/18/[address] [address] Remedios Mehta MD [address] [place] [phone] Medications Refill Social History Tobacco Use [...] Refills Last Filled Start Date End Date pantoprazole (PROTONIX) 40 mg tabletIndications: GERD (gastroesophageal reflux disease) Take 1 Tab by mouth daily. 90 Tab 1 11/21/2011 2 trazodone (DESYREL) 100 mg tabletIndications: Myalgia and myositis,Arthropat hy Take 2 Tabs by mouth. Take 1-2 tabs at bedtime for sleep as needed 56 Tab 1 11/18/2011 2 hydroxychloroquine (PLAQUENIL) 200 mg tabletIndications: Arthropathy Take 1 Tab by mouth 2 times daily. 180 Tab 1 11/18/2011 2 documented in this encounter Miscellaneous Notes * Telephone Encounter - Tania Nguyen - 11/18/2011 1334 EST Last seen 1.4.12 Next appt 4.4.12 Last fill 8.2.11 She is out documented [...] documented as of this encounter Care Teams Cigarette Seller Relationship Specialty Start Date End Date Remedios Mehta MD [address] [place] [phone] PCP - General 02/19/09 01/04/15 documented as of this encounter
--- OUTSIDE RECORDS SUMMARY | 2024-09-17 15:23 | XMS_ITS | Encounter Summary ---
Author Organization [facility] Address [address] [place] [address] Care Team Providers Care Power Cleaner Operator Name Role Phone Remedios Mehta MD Primary Care Provider +1 -[phone] Reason for Visit * Reason Comments Joint Pain hands, knees, should ers, back, and neck Encounter Details Date Type Department Care Team (Late st Contact Info) Description 06/04/2012 10:40 EDT Office Visit [facility] Rheumatology & Immunology - [facility] [address] [place] [address] Yovana Callejas MD [address] [place] [address] [phone] Arthropathy (Primary Dx); Encounter for [...] 06/04/2012 1058 EDT documented in this encounter Mental Status [...] End Date hydrocodone-acetam inophen (LORTAB;VICODIN) 5-500 mg tabletIndications: Arthritis Take 1 Tab by mouth every 6 hours as needed for Pain (up to 4 pills a day). 120 Tab 3 06/04/2012 11/26/2012 methotrexate 2.5 mg tabletIndications: Arthritis Take 6 Tabs by mouth once a week. 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 Patient Active Problem [...] [place] ??? Joint replacement 04/15/2010 Right TKR ([place]) ??? Knee surgery right Family History Problem [...] fluticasone (FLONASE) 50 mcg/Actuation nasal spray 1 [place] by Nasal route daily. 1 Bottle 5 [...] documented as of this encounter Care Teams Power Cleaner Operator Relationship Specialty Start Date End Date Remedios Mehta MD [address] [place] [phone] PCP - General 02/19/09 01/04/15 documented as of this encounter
--- OUTSIDE RECORDS SUMMARY | 2024-09-17 15:23 | XMS_ITS | Encounter Summary ---
Author Organization [facility] Address [address] [place] [address] Care Team Providers Care Mine Foreman Name Role Phone Remedios Mehta MD Primary Care Provider +1 -[phone] Reason for Visit * Reason Onset Date Comments Results 10/14/2011 Encounter Details Date Type Department Care Team (Late st Contact Info) Description 10/14/[address] [address] Remedios Mehta MD [address] [place] [phone] Results Social History Tobacco Use Types [...] on filedocumented in this encounter Care Teams Mine Foreman Relationship Specialty Start Date End Date Remedios Mehta MD [address] [place] [phone] PCP - General 02/19/09 01/04/15 documented as of this encounter
--- OUTSIDE RECORDS SUMMARY | 2024-09-17 15:23 | XMS_ITS | Encounter Summary ---
Author Organization [facility] Address [address] [place] [address] Care Team Providers Care Concrete Grinder Operator Name Role Phone Remedios Mehta MD Primary Care Provider +1 -[phone] Reason for Visit * Reason Onset Date Comments Medications Refill 04/04/2012 Encounter Details Date Type Department Care Team (Late st Contact Info) Description 04/04/[address] [address] Remedios Mehta MD [address] [place] [phone] Medications Refill Social History Tobacco Use [...] Refills Last Filled Start Date End Date metoprolol (LOPRESSOR) 25 mg tabletIndications: Hypertension Take 1 Tab by mouth 2 times daily. 180 Tab 4 04/04/2012 3 trazodone (DESYREL) 100 mg tabletIndications: Myalgia and myositis,Arthropat hy Take 2 Tabs by mouth. Take 1-2 tabs at bedtime for sleep as needed 56 Tab 1 04/04/2012 2 documented in this encounter Miscellaneous Notes * Telephone Encounter - Tania Nguyen - 04/04/2012 1230 EDT LAST SEEN 3.7.12 LAST FILL 120.12, 6.1.11 documented in this encounter Plan of [...] documented as of this encounter Care Teams Concrete Grinder Operator Relationship Specialty Start Date End Date Remedios Mehta MD [address] [place] [phone] PCP - General 02/19/09 01/04/15 documented as of this encounter
--- OUTSIDE RECORDS SUMMARY | 2024-09-17 15:23 | XMS_ITS | Encounter Summary ---
Author Organization [facility] Address [address] [place] [address] Care Team Providers Care Pneumatic Jacketer Name Role Phone Remedios Mehta MD Primary Care Provider + -[phone] Encounter Details Date Type Department Care Team (Late st Contact Info) Description 03/05/2012 Phlebotomy Only [facility] [address] [place] [address] Precision Lens Technician, Outpatient Psoriatic arthritis ([facility]) ([facility]); Fibromyalgia; Arthritis Social History Tobacco Use Types [...] PROFILE Routine 03/05/2012 16:14 EDT Psoriatic arthritis ([facility]) ([facility]) Fibromyalgia SED RATE Routine 03/05/2012 16:14 EDT Psoriatic arthritis ([facility]) ([facility]) Fibromyalgia COMPLETE BLOOD COUNT AND DIFFERENTIAL Routine 03/05/2012 16:14 EDT Psoriatic arthritis ([facility]) ([facility]) Fibromyalgia ANTI NUCLEAR AB ([place]), IFA Routine 03/05/2012 16:14 EDT Psoriatic arthritis ([facility]) ([facility]) Arthritis documented in this encounter Results * ANTI NUCLEAR ANTIBODY (03/05/2012 16:14 EDT) Pathologist [facility] Anti Nuclear Ab <40 0 - 40 Dils [facility] Blood specimen (specimen) 03/05/2012 16:14 EDT 03/05/2012 16:33 EDT Delia SIFUENTES IMMUNOLOGY AND SEROLOGY ORD ERABLES Final Result Performing Organization Address [facility] Co de Phone Number [facility] [address] [place] [address] * SED. RATE:WESTERGREN (03/05/2012 16:14 EDT) Pathologist [facility] Sed. Rate Westergren 12 0 - 30 mm/hr [facility] Blood specimen (specimen) 03/05/2012 16:14 EDT 03/05/2012 16:33 EDT Delia SIFUENTES HEMATOLOGY & PF4 ORDERABLES Final Result Performing Organization Address [facility] Co de Phone Number [facility] [address] [place] [address] * DMARD PROFILE (03/05/2012 16:14 EDT) Pathologist [facility] Total Alkaline Phosphatase 73 38 - 126 U/L [facility] AST 20 15 - 46 U/L [facility] ALT 30 9 - 52 U/L [facility] Albumin 4.1 3.4 - 4.9 g/dl [facility] Creatinine 0.75 0.52 - 1.04 mg/dl [facility] GFR, Calculated >60 >60 ml/min/1.7 3m2 [facility] Blood specimen (specimen) 03/05/2012 16:14 EDT 03/05/2012 16:33 EDT us Delia SIFUENTES CHEMISTRY & BLOOD GAS ORDER ONELIA Final Result [facility] [address] [place] [address] * HEMAGRAM AND DIFFERENTIAL (03/05/2012 16:14 EDT) [...] BLES Final Result [facility] [address] [place] [address] documented in this encounter Visit Diagnoses Diagnosis Psoriatic arthritis ([facility]) Psoriatic arthropathy Fibromyalgia Mylagia and myositis, unspecified Arthritis Arthropathy, unspecified, site unspecified documented in this encounter Care Teams Pneumatic Jacketer Relationship Specialty Start Date End Date Remedios Mehta MD [address] [place] [phone] PCP - General 02/19/09 01/04/15 documented as of this encounter
--- OUTSIDE RECORDS SUMMARY | 2024-09-17 15:23 | XMS_ITS | Encounter Summary ---
Author Organization [facility] Address [address] [place] [address] Care Team Providers Care Handbag Designer Name Role Phone Remedios Mehta MD Primary Care Provider +1 -[phone] Encounter Details Date Type Department Care Team (Late st Contact Info) Description 01/24/2012 Results Only Imaging [facility] Family Medicine [address] [address] Remedios Mehta MD [address] [place] [phone] Social History Tobacco Use Types Packs/Day [...] additional imaging (Category 0) at this time. us Remedios Mehta MD IMG MAMMOGRAPHY ORDERABLE S Final Result documented in this encounter Visit Diagnoses Not on filedocumented in this encounter Care Teams Handbag Designer Relationship Specialty Start Date End Date Remedios Mehta MD [address] [place] [phone] PCP - General 02/19/09 01/04/15 documented as of this encounter
--- OUTSIDE RECORDS SUMMARY | 2024-09-17 15:23 | XMS_ITS | Encounter Summary ---
Author Organization [facility] Address [address] [place] [address] Care Team Providers Care Furnace Repairer Name Role Phone Remedios Mehta MD Primary Care Provider +1 -[phone] Reason for Visit * Reason Onset Date Comments Follow-up 04/23/2012 Encounter Details Date Type Department Care Team (Late st Contact Info) Description 04/23/2012 Telephone [facility] Rheumatology & Immunology - [facility] [address] [place], [place] [id number] Delia Perez, MARIA [address] [facility] [address] [place] [address] Follow-up Social History Tobacco Use Types Packs/Day [...] - 04/23/2012 1053 EDT Patient returned Anh Cerrillos [place]oyos's call documented in this encounter Plan of Treatment Not on file documented as of this encounter Visit Diagnoses Not on filedocumented in this encounter Care Teams Furnace Repairer Relationship Specialty Start Date End Date Remedios Mehta MD [address] [place] [phone] PCP - General 02/19/09 01/04/15 documented as of this encounter
--- OUTSIDE RECORDS SUMMARY | 2024-09-17 15:23 | XMS_ITS | Encounter Summary ---
Author Organization [facility] Address [address] [place] [address] Care Team Providers Care Contract Forester Name Role Phone Remedios Mehta MD Primary Care Provider +1 -[phone] Reason for Visit * Reason Onset Date Comments Medications Refill 06/07/2012 Encounter Details Date Type Department Care Team (Late st Contact Info) Description 06/07/[address] [address] Remedios Mehta MD [address] [place] [phone] Medications Refill Social History Tobacco Use [...] Date End Date pantoprazole (PROTONIX) 40 mg tabletIndications:G ERD (gastroesophageal reflux disease) Take 1 Tab by mouth daily. 90 Tab 1 06/07/2012 12/12/2012 loratadine (CLARITIN) 10 mg tabletIndications:A llergic rhinitis Take 1 Tab by mouth daily. [...] documented as of this encounter Care Teams Contract Forester Relationship Specialty Start Date End Date Remedios Mehta MD [address] [place] [phone] PCP - General 02/19/09 01/04/15 documented as of this encounter
--- OUTSIDE RECORDS SUMMARY | 2024-09-17 15:23 | XMS_ITS | Encounter Summary ---
Author Organization [facility] Address [address] [place] [address] Care Team Providers Care Director Of Sports Medicine Name Role Phone Remedios Mehta MD Primary Care Provider +1 -[phone] Reason for Visit * Reason Comments Fibromyalgia f/u, review labs Obesity Hyperlipidemia Gastroesophageal Reflux Asthma Encounter Details Date Type Department Care Team (Latest Contact Info) Description 11/02/2011 13:00 EST Office Visit [address] [address] Remedios Mehta MD [address] [place] [phone] Fibromyalgia; Asthma; Hyperlipidemia; LBP (low back [...] 08/31/2011 1446 EDT documented in this encounter Mental Status [...] fluticasone (FLONASE) 50 mcg/Actuation nasal spray 1 [place] by Nasal route daily. 1 Bottle 5 [...] disorder documented in this encounter Care Teams Director Of Sports Medicine Relationship Specialty Start Date End Date Remedios Mehta MD [address] [place] [phone] PCP - General 02/19/09 01/04/15 documented as of this encounter
--- OUTSIDE RECORDS SUMMARY | 2024-09-17 15:23 | XMS_ITS | Encounter Summary ---
Author Organization [facility] Address [address] [place] [address] Care Team Providers Care Senior Accountant Cpa Name Role Phone Remedios Mehta MD Primary Care Provider +1 -[phone] Reason for Visit * Reason Onset Date Comments Knee Injury 01/09/2012 questions Encounter Details Date Type Department Care Team (Late st Contact Info) Description 01/09/[address] [address] Remedios Mehta MD [address] [place] [phone] Knee Injury (questions) Social History Tobacco [...] filedocumented in this encounter Care Teams Senior Accountant Cpa Relationship Specialty Start Date End Date Remedios Mehta MD [address] [place] [address] [phone] PCP - General 02/19/09 01/04/15 documented as of this encounter
--- OUTSIDE RECORDS SUMMARY | 2024-09-17 15:23 | XMS_ITS | Encounter Summary ---
Author Organization [facility] Address [address] [place] [address] Care Team Providers Care Saturation Equipment Operator Name Role Phone Remedios Mehta MD Primary Care Provider +1 -[phone] Reason for Visit * Reason Onset Date Comments Results 01/06/2012 Encounter Details Date Type Department Care Team (Late st Contact Info) Description 01/06/2012 Telephone [facility] Medicine [address] [phone] Nayeli Swift LPN Results Social History Tobacco [...] on filedocumented in this encounter Care Teams Saturation Equipment Operator Relationship Specialty Start Date End Date Remedios Mehta MD [address] [place] [phone] PCP - General 02/19/09 01/04/15 documented as of this encounter
--- OUTSIDE RECORDS SUMMARY | 2024-09-17 15:23 | XMS_ITS | Encounter Summary ---
Author Organization [facility] Address [address] [place] [address] Care Team Providers Care Financial Recruiter Name Role Phone Remedios Mehta MD Primary Care Provider +1 -[phone] Encounter Details Date Type Department Care Team (Late st Contact Info) Description 04/05/[address] [address] Remedios Mehta MD [address] [place] [phone] Social History Tobacco Use Types Packs/Day [...] on filedocumented in this encounter Care Teams Financial Recruiter Relationship Specialty Start Date End Date Remedios Mehta MD [address] [place] [phone] PCP - General 02/19/09 01/04/15 documented as of this encounter
--- OUTSIDE RECORDS SUMMARY | 2024-09-17 15:23 | XMS_ITS | Encounter Summary ---
Author Organization [facility] Address [address] [place] [address] Care Team Providers Care Sourcing Assistant Name Role Phone Remedios Mehta MD Primary Care Provider +1 -[phone] Encounter Details Date Type Department Care Team (Latest Contact Info) Description 03/28/2012 10:24 EDT - 03/28/2012 23:59 EDT Hospital Encounter [facility] [address] [place] [address] Delia Perez, MARIA [address] [phone] Discharge Disposition: Home or Self Care Social [...] fluticasone (FLONASE) 50 mcg/Actuation nasal spray 1 [place] by Nasal route daily. 1 Bottle 5 [...] on filedocumented in this encounter Care Teams Sourcing Assistant Relationship Specialty Start Date End Date Remedios Mehta MD [address] [place] [phone] PCP - General 02/19/09 01/04/15 documented as of this encounter
--- OUTSIDE RECORDS SUMMARY | 2024-09-17 15:24 | XMS_ITS | Encounter Summary ---
Author Organization [facility] Address [address] [place] [address] Care Team Providers Care Police Cadet Name Role Phone Keshawn Mehta MD Primary Care Provider +1 -[phone] Encounter Details Date Type Department Care Team (Late st Contact Info) Description 08/31/2011 Results Only [facility] Family Medicine - [address] [address] Keshawn Mehta MD [address] [place] [phone] Social History Tobacco Use Types Packs/Day [...] ? CHERELLE HUSAIN ? Accession #: ? [id number] : ? 1960 (Age: 51) ??F ?Collect [...] Document reviewed and electronically signed by: ? Luzma Archuleta, LALA(ASCP)(IAC) ? Report Date: ??09/07/2011 16:57 End of Report [facility] 08/31/2011 09/01/2011 us Keshawn Mehta MD PATHOLOGY ORDERABLES Jessica hu Result [facility] [address] [place] [address] documented in this encounter Visit Diagnoses Not on filedocumented in this encounter Care Teams Police Cadet Relationship Specialty Start Date End Date Keshawn Mehta MD [address] [place] [phone] PCP - General 02/19/09 01/04/15 documented as of this encounter
--- OUTSIDE RECORDS SUMMARY | 2024-09-17 15:24 | XMS_ITS | Encounter Summary ---
Author Organization [facility] Address [address] [place] [address] Care Team Providers Care File Machine Operator Name Role Phone Remedios Mehta MD Primary Care Provider +1 -[phone] Reason for Visit * Reason Onset Date Comments Appointment Related 04/28/2011 Encounter Details Date Type Department Care Team (Late st Contact Info) Description 04/28/[address] [phone] Elizabeth Busch PT Appointment Related Social History [...] * Telephone Encounter - Dayna Platt - 04/28/2011 1334 EDT [facility] [address] [place] [phone] A call was placed to Ms. Husain [...] on filedocumented in this encounter Care Teams File Machine Operator Relationship Specialty Start Date End Date Remedios Mehta MD [address] [place] [phone] PCP - General 02/19/09 01/04/15 documented as of this encounter
--- OUTSIDE RECORDS SUMMARY | 2024-09-17 15:24 | XMS_ITS | Encounter Summary ---
Author Organization [facility] Address [address] [place] [address] Care Team Providers Care Denial Management Representative Name Role Phone Remedios Mehta MD Primary Care Provider +1 -[phone] Reason for Visit * Reason Onset Date Comments Medications Refill 02/01/2011 Encounter Details Date Type Department Care Team (Late st Contact Info) Description 02/01/[address] [address] Remedios Mehta MD [address] [place] [phone] Medications Refill Social History Tobacco Use [...] Refills Last Filled Start Date End Date hydrocodone-acetami nophen (LORTAB;VICODIN) 5-500 mg per tablet Take 1 [...] documented as of this encounter Care Teams Denial Management Representative Relationship Specialty Start Date End Date Remedios Mehta MD [address] [place] [phone] PCP - General 02/19/09 01/04/15 documented as of this encounter
--- OUTSIDE RECORDS SUMMARY | 2024-09-17 15:24 | XMS_ITS | Encounter Summary ---
Author Organization [facility] Address [address] [place] [address] Care Team Providers Care Flash Developer Name Role Phone Remedios Mehta MD Primary Care Provider +1 -[phone] Reason for Visit * Reason Onset Date Comments Medications Refill 03/04/2011 Encounter Details Date Type Department Care Team (Late st Contact Info) Description 03/04/[address] [address] Remedios Mehta MD [address] [place] [phone] Medications Refill Social History Tobacco Use [...] Ma rykate, RN documented in this encounter Ordered Prescriptions Prescription Sig Dispense Quantity Refills Last Filled Start Date End Date hydroxychloroquine (PLAQUENIL) 200 mg tabletIndications:A rthropathy Take 1 Tab by mouth 2 times daily. 90 Tab 1 03/04/2011 05/31/2011 documented in this encounter Miscellaneous Notes * Telephone Encounter - Jaz De Leon - 03/04/2011 1519 EDT Last rf 4.. Last visit .. documented in this encounter Plan of Treatment Not on file documented as of this encounter Visit Diagnoses Diagnosis Arthropathy- Primary Arthropathy, unspecified, site unspecified documented in this encounter Discontinued Medications Medication Sig Discontinue Reason Start Date End Da te hydroxychloroquine (PLAQUENIL) 200 mg tabletIndications:Arthrop athy Take 1 Tab by mouth 2 times daily. Reorder 02/17/2010 03/04/2011 documented as of this encounter Care Teams Flash Developer Relationship Specialty Start Date End Date Remedios Mehta MD [address] [place] [phone] PCP - General 02/19/09 01/04/15 documented as of this encounter
--- OUTSIDE RECORDS SUMMARY | 2024-09-17 15:24 | XMS_ITS | Encounter Summary ---
Author Organization [facility] Address [address] [place] [address] Care Team Providers Care Vehicle Detailer Name Role Phone Remedios Mehta MD Primary Care Provider +1 -[phone] Reason for Visit * Reason Onset Date Comments Prior Auth, Medication 04/19/2011 Encounter Details Date Type Department Care Team (Late st Contact Info) Description 04/19/2011 Telephone [facility] Rheumatology & Immunology - [facility] [address] [place], [place] [phone] Waleska Barboza MD [address] [facility] [address] [place] [address] Prior Auth, Medication Social History [...] Answer Entry Date Author Yes 04/15/2010 17:15 EDBala Brothers RN documented in this encounter Miscellaneous Notes * Telephone Encounter - Nathalia Mccormack - 04/19/2011 1534 EDT The patient has been authorized for Lyrica 25mg through [facility]. This authorization is valid from 04/19/11-04/18/13. documented in this encounter Plan of Treatment Not on file documented as of this encounter Visit Diagnoses Not on filedocumented in this encounter Care Teams Vehicle Detailer Relationship Specialty Start Date End Date Remedios Mehta MD [address] [place] [phone] PCP - General 02/19/09 01/04/15 documented as of this encounter
--- OUTSIDE RECORDS SUMMARY | 2024-09-17 15:24 | XMS_ITS | Encounter Summary ---
Author Organization [facility] Address [address] [place] [address] Care Team Providers Care Marine Habitat Resource Specialist Name Role Phone Remedios Mehta MD Primary Care Provider +1 -[phone] Encounter Details Date Type Department Care Team (Late st Contact Info) Description 04/11/[address] [facility] [address] [place] [address] Freight Weigher, Outpatient Encounter for long-term (current) use of [...] Monocytes 0.57 0.1 - 0.8 K/cmm [facility] Eosinophils 0.15 0.03 - 0.61 K/cmm [facility] Basophils 0.04 0.01 - 0.11 K/cmm [facility] Type of Diff: Automated [facility] Blood specimen (specimen) 04/11/2011 11:51 EDT 04/11/2011 14:47 EDT us Yovana Callejas MD PACKAGES & DNA PROBE ORD ERABLES Final Result Performing Organization Address City/[facility]/ZIP Co de Phone Number [facility] [address] [place] [address] * COMPREHENSIVE METABOLIC PANEL (CMP) (04/11/2011 11:51 [...] [facility] Fasting? No [facility] Blood specimen (specimen) 04/11/2011 11:51 EDT 04/11/2011 14:47 EDT us Yovana Callejas MD CHEMISTRY & BLOOD GAS OR DERABLES Final Result Performing Organization Address City/[facility]/ZIP Co de Phone Number [facility] [address] [place] [address] documented in this encounter Visit Diagnoses Diagnosis Encounter for long-term (current) use of other medications documented in this encounter Care Teams Marine Habitat Resource Specialist Relationship Specialty Start Date End Date Remedios Mehta MD [address] [place] [phone] PCP - General 02/19/09 01/04/15 documented as of this encounter
--- OUTSIDE RECORDS SUMMARY | 2024-09-17 15:24 | XMS_ITS | Encounter Summary ---
Author Organization [facility] Address [address] [place] [address] Care Team Providers Care Director Of Physician Practices Name Role Phone Remedios Mehta MD Primary Care Provider +1 -[phone] Reason for Visit * Reason Comments Asthma recheck Back Pain URI sore throat, ear mike n, congestion Encounter Details Date Type Department Care Team (Late st Contact Info) Description 02/25/2011 14:45 EDT Office Visit [address] [address] Remedios Mehta MD [address] [place] [phone] Sinusitis, acute (Primary Dx); Fibromyalgia; OA [...] from the original note were not included. [facility] Patient Instructions Asthma Attacks in Adults: After [...] Where can you learn more? Go to www.[employer].net/fahc Enter F084 in the search box to learn more about Asthma Attacks in Adults: After Your Visit. ?? [id number] [employer]. Care instructions adapted under license by [facility] This care instruction is for use with your licensed healthcare professional. If you have questions about a medical condition or this instruction, always ask your healthcare professional. [employer] disclaims any warranty or liability for your use of this information. Content Version: 8.8.57952; Last Revised: January 12, 2009 documented in this encounter Ordered Prescriptions Prescription Sig Dispense Quantity Refills Last Filled Start Date End Date azithromycin (ZITHROMAX) 250 mg tabletIndications: Sinusitis, acute Take 1 Tab by mouth. Take 2 tablets (500 mg) on Day 1, followed by 1 tablet (250 mg) once daily on Days 2 through 5. 6 Tab 0 02/25/2011 1 documented in this encounter Progress Notes * Remedios Strong MD - 02/25/2011 1746 EDT Subjective: Patient ID: Cherelle Husain is an 50 y.o. female. Chief Complaint Patient presents with ??? Asthma recheck ??? Back Pain ??? URI sore throat, ear pain, congestion HPI Better now that she has health insurance ([employer]). Still waiting on disability. Pulmicort and accolate [...] (NASACORT AQ) 55 mcg nasal inhaler 1 [place] by Nasal route 2 times daily. Insurance does not cover 02/04/2011 02/25/2011 fluticasone (FLONASE) 50 mcg/Actuation nasal spray 1 [place] by Nasal route daily. Insurance does not cover 02/25/2011 documented as of this encounter Care Teams Director Of Physician Practices Relationship Specialty Start Date End Date Remedios Mehta MD NPI: [id number] [place] [phone] PCP - General 02/19/09 01/04/15 documented as of this encounter
--- OUTSIDE RECORDS SUMMARY | 2024-09-17 15:24 | XMS_ITS | Encounter Summary ---
Author Organization [facility] Address [address] [place] [address] Care Team Providers Care Junior Project Coordinator Name Role Phone Remedios Mehta MD Primary Care Provider +1 -[phone] Reason for Visit * Reason Comments Pain Post Traumatic Stress Disorder Depression Encounter Details Date Type Department Care Team (Late st Contact Info) Description 02/17/2011 9:00 EDT Office Visit [facility] Psychiatry S [address] [phone] Gay Trujillo MD [facility] [address] [phone] Depression, major; Depressive disorder; Myalgia [...] Bala Smith RN documented in this encounter Ordered Prescriptions Prescription Sig Dispense Quantity Refills Last Filled Start Date End Date trazodone (DESYREL) 100 mg tabletIndications: Myalgia and myositis,Arthropat hy Take 2 Tabs by mouth. Take 1-2 tabs at bedtime for sleep as needed 60 Tab 1 02/17/2011 1 citalopram (CELEXA) 20 mg tabletIndications: Depression, major Take 3 Tabs by mouth daily. 90 Each 1 02/17/2011 1 documented in this encounter Discharge Disposition [...] documented as of this encounter Care Teams Junior Project Coordinator Relationship Specialty Start Date End Date Remedios Mehta MD [address] [place] [phone] PCP - General 02/19/09 01/04/15 documented as of this encounter
--- OUTSIDE RECORDS SUMMARY | 2024-09-17 15:24 | XMS_ITS | Encounter Summary ---
Author Organization [facility] Address [address] [place] [address] Care Team Providers Care Electric Transfer Operator Name Role Phone Remedios Mehta MD Primary Care Provider +1 -[phone] Reason for Visit * Reason Onset Date Comments Appointment Related 04/15/2011 Encounter Details Date Type Department Care Team (Late st Contact Info) Description 04/15/[address] [address] Kerry Barnhart, PT [address] [facility], [facility], [address] [place] [address] Appointment Related Social History Tobacco [...] - 04/15/2011 1238 EDT [facility] [address] [place] [phone] Telephone Intake Information for Scheduling NEW Patients for Therapy Script/referral (present in [facility], pt peter, office faxing, etc.): [facility] Primary Insurance: [employer]. Patient states she's had a problem getting [...] auth is needed for aquatic therapy. KERRY BARNHART PT documented in this encounter Plan of Treatment Not on file documented as of this encounter Visit Diagnoses Not on filedocumented in this encounter Care Teams Electric Transfer Operator Relationship Specialty Start Date End Date Remedios Mehta MD [address] [place] [phone] PCP - General 02/19/09 01/04/15 documented as of this encounter
--- OUTSIDE RECORDS SUMMARY | 2024-09-17 15:24 | XMS_ITS | Encounter Summary ---
Author Organization [facility] Address [address] [place] [address] Care Team Providers Care Quality Tech Name Role Phone Remedios Mehta MD Primary Care Provider +1 -[phone] Reason for Visit * Reason Onset Date Comments Medications Refill 06/01/2011 Encounter Details Date Type Department Care Team (Late st Contact Info) Description 06/01/[address] [address] Remedios Mehta MD [address] [place] [phone] Medications Refill Social History Tobacco Use [...] Ma rykate, RN documented in this encounter Plan of Treatment Not on file documented as of this encounter Visit Diagnoses Diagnosis Arthropathy Arthropathy, unspecified, site unspecified documented in this encounter Care Teams Quality Tech Relationship Specialty Start Date End Date Remedios Mehta MD [address] [place] [phone] PCP - General 02/19/09 01/04/15 documented as of this encounter
--- OUTSIDE RECORDS SUMMARY | 2024-09-17 15:24 | XMS_ITS | Encounter Summary ---
Author Organization [facility] Address [address] [place] [address] Care Team Providers Care Delinquency Prevention Officer Name Role Phone Remedios Mehta MD Primary Care Provider +1 -[phone] Reason for Visit * Reason Onset Date Comments Medication Problem 02/03/2011 Encounter Details Date Type Department Care Team (Late st Contact Info) Description 02/03/[address] [address] Remedios Mehta MD [address] [place] [phone] Medication Problem Social History Tobacco Use [...] Refills Last Filled Start Date End Date triamcinolone (NASACORT AQ) 55 mcg nasal inhaler 1 [place] by Nasal route 2 times daily. 1 Inhaler 2 02/04/2011 1 fluticasone (FLOVENT) 110 mcg/Actuation inhaler Inhale 1 Puff as directed 2 times daily. 1 Inhaler 2 02/04/2011 1 documented in this encounter Miscellaneous Notes * [...] 02/03/2011 1554 EDT PT CALLING UNABLE TO CURTAIN CLEANER SCRIPTS FROM PHARMACY FOR ACCULATE AND ADVAIR. TOLD BY PHARMACIST FROMMARILYN [facility] IN [facility] THAT INSURANCE WILL NOT PAY FOR [...] on filedocumented in this encounter Care Teams Delinquency Prevention Officer Relationship Specialty Start Date End Date Remedios Mehta MD [address] [place] [phone] PCP - General 02/19/09 01/04/15 documented as of this encounter
--- OUTSIDE RECORDS SUMMARY | 2024-09-17 15:24 | XMS_ITS | Encounter Summary ---
Author Organization [facility] Address [address] [place] [address] Care Team Providers Care Guard Sergeant Name Role Phone Remedios Mehta MD Primary Care Provider +1 -[phone] Reason for Visit * Reason Onset Date Comments Medications Refill 05/31/2011 Encounter Details Date Type Department Care Team (Late st Contact Info) Description 05/31/[address] [address] Remedios Mehta MD [address] [place] [phone] Medications Refill Social History Tobacco Use [...] sleep as needed 60 Tab 1 05/31/2011 2 documented in this encounter Plan of Treatment [...] documented as of this encounter Care Teams Guard Sergeant Relationship Specialty Start Date End Date Remedios Mehta MD [address] [place] [phone] PCP - General 02/19/09 01/04/15 documented as of this encounter
--- OUTSIDE RECORDS SUMMARY | 2024-09-17 15:24 | XMS_ITS | Encounter Summary ---
Author Organization [facility] Address [address] [place] [address] Care Team Providers Care Two Way Radio Technician Name Role Phone Remedios Mehta MD Primary Care Provider +1 -[phone] Reason for Visit * Reason Onset Date Comments Medications Refill 06/08/2011 Encounter Details Date Type Department Care Team (Late st Contact Info) Description 06/08/[address] [address] Remedios Mehta MD [address] [place] [phone] Medications Refill Social History Tobacco Use [...] Date End Date loratadine (CLARITIN) 10 mg tabletIndications:A llergic rhinitis Take 1 Tab by mouth daily. 90 Tab 1 06/08/2011 06/07/2012 citalopram (CELEXA) 20 mg tabletIndications:D epression, major Take 3 Tabs by mouth daily. [...] documented as of this encounter Care Teams Two Way Radio Technician Relationship Specialty Start Date End Date Remedios Mehta MD [address] [place] [address] [phone] PCP - General 02/19/09 01/04/15 documented as of this encounter
--- OUTSIDE RECORDS SUMMARY | 2024-09-17 15:24 | XMS_ITS | Encounter Summary ---
Author Organization [facility] Address [address] [place] [address] Care Team Providers Care Disk And Tape Machine Tender Name Role Phone Remedios Mehta MD Primary Care Provider [phone] [phone] Encounter Details Date Type Department Care Team (Latest Contact Info) Description 08/16/2011 - 08/16/2011 23:[address] [facility] Endoscopy Outpatient [address] [place] [address] David Pedersen MD Discharge Disposition: Home or [...] 08/16/2011 1336 EDT documented in this encounter Mental Status * Because of a physical, mental, or emotional condition, do you have serious difficulty concentrating, remembering, or making decisions? (5 years old or older) Answer Entry Date Author Yes 04/15/2010 17:15 EDT Bala Vreonica RN documented in this encounter Medications at [...] mg by mouth 2 times daily. 2 citalopram (CELEXA) 20 mg tabletIndication s:Depression, major Take 1 Tab by mouth 2 times daily. 20 Tab 0 08/13/2011 1 duloxetine (CYMBALTA) 20 mg capsuleIndicatio ns:Depression, major Take 1 Cap by mouth 2 times daily. 60 Cap 1 08/13/2011 1 fluticasone (FLONASE) 50 mcg/Actuation nasal spray 1 [place] by Nasal route daily. 1 Bottle 5 03/17/2011 2 hydrocodone-acet aminophen (LORTAB;VICODIN) 5-500 mg per tabletIndication s:Arthritis Take 1 Tab by mouth every 6 hours as needed for Pain. 84 Tab 1 06/14/2011 1 hydroxychloroqui ne (PLAQUENIL) 200 mg tabletIndication s:Arthropathy Take 1 Tab by mouth 2 times daily. 180 Tab 1 05/31/2011 2 ketoconazole (NIZORAL) 2 % creamIndications :Rash [...] 4 07/06/2011 2 methotrexate 2.5 mg tablet TAKE 4 TABLETS BY MOUTH ONCE A WEEK 16 Each 3 07/04/2011 2 metoprolol (LOPRESSOR) 25 mg tabletIndication s:Hypertension Take 1 Tab by mouth 2 times daily. 180 Tab 4 03/30/2011 2 pantoprazole (PROTONIX) 40 mg tabletIndication s:GERD (gastroesophagea l reflux disease) Take 1 Tab by mouth daily. 30 Tab 1 07/12/2011 1 PEG 3350-Electrolyte s (GOLYTELY) Take 4 L by mouth. Instructions mailed once procedure scheduled. Questions: [facility] Dept.: [phone] or GI Doctor's Office. 4 L 0 07/06/2011 1 trazodone (DESYREL) 100 mg tabletIndication s:Myalgia and myositis,Arthrop athy Take 2 Tabs by mouth. Take 1-2 tabs at bedtime for sleep as needed 60 Tab 1 05/31/2011 2 zafirlukast (ACCOLATE) 20 mg tabletIndication s:Asthma Take 1 Tab by mouth 2 times daily. 30 Tab 6 01/14/2011 1 documented as of this encounter Discharge Disposition Disposition Code Departure Means Destination Home or Self Shelter documented in this encounter H&P Notes * David Pedersen MD - 08/16/2011 1411 EDT Sedation for Procedure History & Physical Date: 08/16/2011 Time: 14:11 Location: [address] Planned Procedure: Colonoscopy Chief Complaint/Indications for Procedure: [...] ??? Joint replacement 04/15/2010 Right TKR ([place]) History Substance Use Topics ??? Smoking status: [...] documented in this encounter Procedure Notes * Travel Nurse, Scan - 08/18/2011 0902 EDTAssociated Order(s): ORDERS - SCANNED * Travel Nurse, Scan - 08/17/2011 0801 EDTAssociated Order(s): PROCEDURE REPORTS - SCANNED documented in this encounter OR Notes * Anesthesia Preprocedure Evaluation - Travel Nurse, Scan - 08/18/2011 0911 EDT documented in this encounter Miscellaneous Notes * Scanned Note-Null - Travel Nurse, Scan - 08/18/2011 0911 EDT * Scanned Note-Null - Travel Nurse, Scan - 08/18/2011 0816 EDT documented in this encounter Plan of Treatment Not on file documented as of this encounter Procedures Procedure Name Priority Date/Time Associated Diagnosis Comments ORDERS - SCANNED 08/18/2011 9:02 EDT PROCEDURE REPORTS - SCANNED 08/17/2011 8:01 EDT documented in this encounter Results * ORDERS - SCANNED (08/18/2011 9:02 EDT) 08/18/2011 9:02 EDT Narrative Transcriptions Travel Nurse, Scan - 08/18/2011 9:02 EDT us Scan Travel Nurse ADMISSION ORDERABLES Final Re sult * PROCEDURE REPORTS - SCANNED (08/17/2011 8:01 EDT) 08/17/2011 8:01 EDT Narrative Transcriptions Travel Nurse, Scan - 08/17/2011 8:01 EDT us Scan Travel Nurse PROCEDURE/MINOR SURGICAL ORDE RABLES Final Result documented in this encounter Visit Diagnoses Not on filedocumented in this encounter Administered Medications Inactive Administered Medications - up to 3 most recent administrations Medication Order MAR Action Action Date Dose Rate Site lactated ringers (LR) infusion 30 mL/hr, intravenous, CONTINUOUS, Starting on 08/16/11 at 1400, Until Shirley 08/18/11 at 0410, [...] 08/16/2011 documented in this encounter Care Teams Disk And Tape Machine Tender Relationship Specialty Start Date End Date Remedios Mehta MD [address] [place] [phone] PCP - General 02/19/09 01/04/15 documented as of this encounter
--- OUTSIDE RECORDS SUMMARY | 2024-09-17 15:24 | XMS_ITS | Encounter Summary ---
Author Organization [facility] Address [address] [place] [address] Care Team Providers Care Mechanical Specialist Name Role Phone Remedios Mehta MD Primary Care Provider [phone] [phone] Reason for Visit * Reason Comments Depression Encounter Details Date Type Department Care Team (Late st Contact Info) Description 02/09/2011 11:00 EDT Office Visit [address] [address] Roxie Pacheco, PhD [address] [place] [phone] Major depressive disorder, single episode, mild (HCC-CMS) (Primary Dx) Social History Tobacco Use [...] Diagnosis Major depressive disorder, single episode, mild ([facility])- Primary Major depressive disorder, single episode, mild documented in this encounter Care Teams Mechanical Specialist Relationship Specialty Start Date End Date Remedios Mehta MD [address] [place] [phone] PCP - General 02/19/09 01/04/15 documented as of this encounter
--- OUTSIDE RECORDS SUMMARY | 2024-09-17 15:24 | XMS_ITS | Encounter Summary ---
Author Organization [facility] Address [address] [place] [address] Care Team Providers Care Peoplesoft Consultant Name Role Phone Remedios Mehta MD Primary Care Provider [phone] [phone] Reason for Visit * Reason Onset Date Comments Medications Refill 03/30/2011 Encounter Details Date Type Department Care Team (Late st Contact Info) Description 03/30/[address] [address] Remedios Mehta MD [address] [place] [phone] Medications Refill Social History Tobacco Use [...] Date End Date metoprolol (LOPRESSOR) 25 mg tabletIndications:H ypertension Take [...] documented as of this encounter Care Teams Peoplesoft Consultant Relationship Specialty Start Date End Date Remedios Mehta MD [address] [place] [phone] PCP - General 02/19/09 01/04/15 documented as of this encounter
--- OUTSIDE RECORDS SUMMARY | 2024-09-17 15:24 | XMS_ITS | Encounter Summary ---
Author Organization [facility] Address [address] [place] [address] Care Team Providers Care Rotary Cutter Operator Name Role Phone Remedios Mehta MD Primary Care Provider [phone] [phone] Reason for Visit * Reason Onset Date Comments Physical Therapy 04/18/2011 Encounter Details Date Type Department Care Team (Late st Contact Info) Description 04/18/[address] [phone] Elizabeth Busch, PT Physical Therapy Social History [...] * Telephone Encounter - Dayna Platt - 04/18/2011 1010 EDT [facility] [address] [place] [phone] A return all was placed to patient [...] on filedocumented in this encounter Care Teams Rotary Cutter Operator Relationship Specialty Start Date End Date Remedios Mehta MD [address] [place] [phone] PCP - General 02/19/09 01/04/15 documented as of this encounter
--- OUTSIDE RECORDS SUMMARY | 2024-09-17 15:24 | XMS_ITS | Encounter Summary ---
Author Organization [facility] Address [address] [place] [address] Care Team Providers Care Tobacco Scrap Sifter Name Role Phone Remedios Mehta MD Primary Care Provider +1 [phone] Encounter Details Date Type Department Care Team (Latest Contact Info) Description 05/05/2011 9:56 EDT - 05/05/2011 23:59 EDT Hospital Encounter [facility] - [facility] [address] [place], [place] [address] Remedios Mehta MD [address] [place] [phone] Discharge Disposition: Home or Self Care [...] as needed for Pain. 0 06/14/20 13 albuterol (ACCUNEB) 0.63 mg/3 mL nebulizer solution Take 0.63 mg by nebulization every 4 hours as needed for Wheezing. 08/29/20 12 albuterol (PROVENTIL, VENTOLIN) 90 mcg/Actuation inhaler Inhale 2 Puffs as directed as needed for Wheezing. 08/29/20 12 albuterol-ipratropiu m (DUONEB) 0.5-2.5 mg/3 mL nebulizer solution Take 3 mL by nebulization every 4 hours as needed for Wheezing. 06/04/20 12 budesonide (PULMICORT) 200 mcg/Inhalation inhaler Inhale 1 Puff as directed 2 times daily. 1 Inhaler 2 1 07/16/20 12 budesonide-formotero l (SYMBICORT) 80-4.5 mcg/Actuation HFAA inhaler Inhale 2 Puffs as directed 2 times daily. 1 Inhaler 5 1 07/16/20 12 CALCIUM CARBONATE/VITAMIN D3 (CALCIUM 600 WITH VITAMIN D3 ORAL) Take 600 mg by mouth 2 times daily. 08/01/20 12 citalopram (CELEXA) 20 mg tabletIndications:De pression, major Take 3 Tabs by mouth daily. 90 Each 1 1 06/08/20 11 fluticasone (FLONASE) 50 mcg/Actuation nasal spray 1 [place] by Nasal route daily. 1 Bottle 5 1 07/16/20 12 hydrocodone-acetamin ophen (LORTAB;VICODIN) 5-500 mg per tablet Take 1 Tab by mouth every 4 hours. 06/08/20 11 hydroxychloroquine (PLAQUENIL) 200 mg tabletIndications:Ar thropathy Take 1 Tab by mouth 2 times daily. 90 Tab 1 1 05/31/20 11 ketoconazole (NIZORAL) 2 % creamIndications:Jace h Apply topically daily. Apply to affect area(s) as directed. 1 Tube 1 0 04/18/20 21 loratadine (CLARITIN) 10 mg tabletIndications:Al lergic rhinitis Take 1 Tab by mouth daily. 30 Tab 11 0 06/08/20 11 lorazepam (ATIVAN) 0.5 mg Tab Take 0.5 mg by mouth as needed. 03/05/20 12 methotrexate 2.5 mg tabletIndications:Un specified inflammatory polyarthropathy Take 4 Tabs by mouth once a week. 16 Tab 5 1 07/05/20 11 metoprolol (LOPRESSOR) 25 mg tabletIndications:Hy pertension Take 1 Tab by mouth 2 times daily. 180 Tab 4 1 04/04/20 12 omeprazole (PRILOSEC) 20 mg capsule Take 1 Cap by mouth 2 times daily. dose increase 60 Cap 3 0 07/12/20 11 pregabalin (LYRICA) 25 mg capsule Take 1 Cap by mouth at bedtime. 30 Cap 2 1 07/06/20 11 trazodone (DESYREL) 100 mg tabletIndications:My algia and myositis,Arthropathy Take 2 Tabs by mouth. Take 1-2 tabs at bedtime for sleep as needed 60 Tab 1 1 05/31/20 11 zafirlukast (ACCOLATE) 20 mg tabletIndications:As thma Take 1 Tab by mouth 2 times daily. 30 Tab 6 1 09/19/20 11 documented as of this encounter Discharge Disposition Disposition Code Departure Means Destination Home or Self [place] documented in this encounter Plan of Treatment Not on file documented as of this encounter Visit Diagnoses Not on filedocumented in this encounter Care Teams Tobacco Scrap Sifter Relationship Specialty Start Date End Date Remedios Mehta MD [address] [place] [phone] PCP - General 02/19/09 01/04/15 documented as of this encounter
--- OUTSIDE RECORDS SUMMARY | 2024-09-17 15:24 | XMS_ITS | Encounter Summary ---
Author Organization [facility] Address [address] [place] [address] Care Team Providers Care Soda Dispenser Name Role Phone Remedios Mehta MD Primary Care Provider [phone] [phone] Reason for Visit * Reason Onset Date Comments Medication Management 02/10/2011 Encounter Details Date Type Department Care Team (Late st Contact Info) Description 02/10/[address] [address] Remedios Mehta MD [address] [place] [phone] Medication Management Social History Tobacco Use [...] Start Date End Date budesonide (PULMICORT) 200 mcg/Inhalation inhaler Inhale 1 Puff as directed 2 times daily. 1 Inhaler 2 02/10/2011 2 documented in this encounter Miscellaneous Notes [...] is not working to treat her symptoms. NEETARN * Telephone Encounter - Viky Britt MD [...] documented as of this encounter Care Teams Soda Dispenser Relationship Specialty Start Date End Date Remedios Mehta MD [address] [place] [phone] PCP - General 02/19/09 01/04/15 documented as of this encounter
--- OUTSIDE RECORDS SUMMARY | 2024-09-17 15:24 | XMS_ITS | Encounter Summary ---
Author Organization [facility] Address [address] [place] [address] Care Team Providers Care Plate Molder Name Role Phone Remedios Mehta MD Primary Care Provider +1 -[phone] Encounter Details Date Type Department Care Team (Late st Contact Info) Description 09/14/2011 Phlebotomy Only [address] [address] Oven Loader, Outpatient Encounter for long-term (current) use of [...] % Basophils 0.6 0.2 - 1.4 % [facility] ABS Neutrophils 2.69 2.20 - 8.85 [...] (specimen) 09/14/2011 10:30 EST 09/14/2011 11:29 EST us Remedios Mehta MD PACKAGES & DNA PROBE [facility] Final Result Performing Organization Address [facility] Co de Phone Number [facility] [address] [place] [address] * (ABNORMAL) LIPID PROFILE (INCLUDES CHOLESTEROL, TRIGLYCERIDES, HDL, LDL) (09/14/2011 10:30 EST) Cholesterol 196 mg/dl [facility] Comment: Desirable:<200 Borderline High:200-239 High:>wq=991 Triglycerides 192(H) 35 - 160 mg/dl [facility] HDL 40 mg/dl [facility] Comment: Low:<40 High(Desirable):>or=60 LDL, Calculated 118 mg/dl [facility] Comment: Optimal:<100 Above optimal:100-129 Borderline High:130-159 High:160-189 Very High:>lw=833 Chol/HDL Ratio 4.9 [facility] Fasting? Yes [facility] Blood specimen (specimen) 09/14/2011 10:30 EST 09/14/2011 11:29 EST us Remedios Mehta MD CHEMISTRY & BLOOD GAS ORD ERABLES Final Result Performing Organization Address City/[facility] Co de Phone Number [facility] [address] [place] [address] * TSH (09/14/2011 10:30 EST) TSH 1.36 0.35 - 5.00 uIU/ml [facility] Blood specimen (specimen) 09/14/2011 10:30 EST 09/14/2011 11:29 EST Remedios Mehta MD CHEMISTRY & BLOOD GAS ORD ERABLES Final Result Performing Organization Address [facility] Phone Number [facility] [address] [place] [address] * HEMOGLOBIN A1C (09/14/2011 10:30 EST) Hemoglobin A1C 5.8 % [facility] [...] treatment. Est Avg Glucose 120 mg/dl [facility] Comment: eAG represents the A1c result expressed as average glucose in mg/dl. Blood specimen (specimen) 09/14/2011 10:30 EST 09/14/2011 11:29 EST Remedios Mehta MD CHEMISTRY & BLOOD GAS ORD ERABLES Final Result Performing Organization Address [facility] Phone Number [facility] [address] [place] [address] * COMPREHENSIVE METABOLIC PANEL (CMP) (09/14/2011 10:30 EST) Potassium 4.2 3.5 - 5.0 mEq/L [facility] [...] LAB Albumin 4.0 3.4 - 4.9 g/dl [facility] Total Protein 6.7 6.5 - [...] (specimen) 09/14/2011 10:30 EST 09/14/2011 11:29 EST us Remedios Mehta MD CHEMISTRY & BLOOD GAS ORD ERABLES Final Result [facility] [address] [place] [address] documented in this encounter Visit Diagnoses Diagnosis [...] fatigue documented in this encounter Care Teams Plate Molder Relationship Specialty Start Date End Date Remedios Mehta MD [address] [place] [phone] PCP - General 02/19/09 01/04/15 documented as of this encounter
--- OUTSIDE RECORDS SUMMARY | 2024-09-17 15:24 | XMS_ITS | Encounter Summary ---
Author Organization [facility] Address [address] [place] [address] Care Team Providers Care Pallet Sorter Name Role Phone Remedios Mehta MD Primary Care Provider [phone] [phone] Reason for Visit * Reason Comments Other Encounter Details Date Type Department Care Team (Late st Contact Info) Description 07/04/2011 Refill [facility] Rheumatology & Immunology - [facility] [address] [place], [place] [phone] Yovana Callejas MD [address] [place] [address] [phone] Other Social History Tobacco Use [...] Date End Date methotrexate 2.5 mg tablet TAKE 4 TABLETS BY MOUTH ONCE A WEEK 16 Each 3 07/04/2011 2 documented in this encounter Plan of Treatment Not on file documented as of this encounter Visit Diagnoses Not on filedocumented in this encounter Discontinued Medications Medication Sig Discontinue Reason Start Date End Da te methotrexate 2.5 mg tabletIndications:Unspecifi ed inflammatory polyarthropathy Take 4 Tabs by mouth once a week. Duplicate Therapy 12/31/2010 07/05/2011 documented as of this encounter Care Teams Pallet Sorter Relationship Specialty Start Date End Date Remedios Mehta MD [address] [place] [phone] PCP - General 02/19/09 01/04/15 documented as of this encounter
--- OUTSIDE RECORDS SUMMARY | 2024-09-17 15:24 | XMS_ITS | Encounter Summary ---
Author Organization [facility] Address [address] [place] [address] Care Team Providers Care Contact Lens Lathe Operator Name Role Phone Remedios Mehta MD Primary Care Provider +1 -[phone] Reason for Visit * Reason Onset Date Comments Medications Refill 06/08/2011 Encounter Details Date Type Department Care Team (Late st Contact Info) Description 06/08/[address] [address] Remedios Mehta MD [address] [place] [phone] Medications Refill Social History Tobacco Use [...] encounter Miscellaneous Notes * Telephone Encounter - [place] - 06/08/2011 1039 EDT She has 3 [...] documented as of this encounter Care Teams Contact Lens Lathe Operator Relationship Specialty Start Date End Date Remedios eMhta MD [address] [place] [phone] PCP - General 02/19/09 01/04/15 documented as of this encounter
--- OUTSIDE RECORDS SUMMARY | 2024-09-17 15:24 | XMS_ITS | Encounter Summary ---
Author Organization [facility] Address [address] [place] [address] Care Team Providers Care Marking Machine Tender Name Role Phone Remedios Mehta MD Primary Care Provider +1 -[phone] Reason for Referral * Consult (Routine) - Closed Specialty Diagnoses / Procedures Referred By Joao proctor Referred To Contact Plastic Surgery Diagnoses Back pain Breast hypertrophy Remedios Mehta MD Phone: tel: fax: Referral ID Status Reason Start Date Expiration Date V isits Requested Visits Authorized [id number] Closed Specialty Services Required 07/06/2011 1 1 [...] 07/06/2011 14:00 EDT Office Visit [facility] [place] Family Medicine - [address] [address] Remedios Mehta MD [address] [place] [phone] HTN (hypertension); Hyperlipidemia; Obesity; Screening colonoscopy; [...] 04/26/2011 1017 EDT documented in this encounter Mental Status [...] from the original note were not included. [facility] Patient Instructions Breast Cancer Screening: After [...] breast pain after the mammogram, take an addj-eqa-yspsmol pain medicine, such as acetaminophen (Tylenol), ibuprofen [...] Where can you learn more? Go to www.[employer].net/fahc Enter H706 in the search box to learn more about Breast Cancer Screening: After Your Visit. ?? [id number] [employer]. Care instructions adapted under license by [facility], [facility]. This care instruction is for use with your licensed healthcare professional. If you have questions about a medical condition or this instruction, always ask your healthcare professional. [employer] disclaims any warranty or liability for your use of this information. Content Version: 8.9.11760; Last Revised: May 04, 2009 documented in this encounter Ordered Prescriptions Prescription Sig Dispense Quantity Refills Last Filled Start Date End Date PEG 3350-Electrolytes (GOLYTELY) Take 4 L by mouth. Instructions mailed once procedure scheduled. Questions: [facility] Dept.: [phone] or GI Doctor's Office. 4 L 0 07/06/2011 1 lovastatin (MEVACOR) 10 mg tabletIndications :Hyperlipidemia Take 1 Tab by mouth daily. 90 Tab 4 07/06/2011 2 documented in this encounter Progress Notes [...] fluticasone (FLONASE) 50 mcg/Actuation nasal spray 1 [place] by Nasal route daily. 1 Bottle 5 [...] procedure scheduled. Questions: [facility] Dept.: [phone] or GI Doctor's Office. documented in this [...] documented as of this encounter Care Teams Marking Machine Tender Relationship Specialty Start Date End Date Remedios Mehta MD [address] [place] [phone] PCP - General 02/19/09 01/04/15 documented as of this encounter
--- OUTSIDE RECORDS SUMMARY | 2024-09-17 15:24 | XMS_ITS | Encounter Summary ---
Author Organization [facility] Address [address] [place] [address] Care Team Providers Care Electric Plater Name Role Phone Remedios Mehta MD Primary Care Provider +1 -[phone] Reason for Visit * Reason Comments Fibromyalgia Knee Pain right knee,states it feels hot; just started on methotrexate rx'd by Rheum (Dr. Callejas) Encounter Details Date Type Department Care Team (Late st Contact Info) Description 01/14/2011 11:00 EDT Office Visit [address] [address] Remedios Mehta MD [address] [place] [phone] Psoriatic arthritis (CMS-HCC) ([facility]); OA (osteoarthritis) of knee; LBP (low back [...] 12/31/2010 0917 EST documented in this encounter Mental Status * Because of a physical, mental, or emotional condition, do you have serious difficulty concentrating, remembering, or making decisions? (5 years old or older) Answer Entry Date Author Yes 04/15/2010 17:15 EDT Bala Veronica RN documented in this encounter Ordered Prescriptions Prescription Sig Dispense Quantity Refills Last Filled Start Date End Date fluticasone-salmet den (ADVAIR DISKUS) 500-50 mcg/dose diskus inhalerIndications :Asthma Inhale 1 Puff as directed 2 times daily. 1 Each 5 01/14/2011 1 zafirlukast (ACCOLATE) 20 mg tabletIndications: Asthma Take 1 Tab by mouth 2 times daily. 30 Tab 6 01/14/2011 1 documented in this encounter Progress Notes [...] fluticasone (FLONASE) 50 mcg/Actuation nasal spray 1 [place] by Nasal route daily. ??? pregabalin (LYRICA) [...] pain) Depressive disorder Continue citalopram Counseling when [employer] activated F/u 1 month Asthma - zafirlukast (ACCOLATE) 20 mg tablet; Take 1 Tab by mouth 2 times daily. - fluticasone-salmeterol (ADVAIR DISKUS) 500-50 mcg/dose diskus inhaler; Inhale 1 Puff as directed 2 times daily. documented in this encounter Plan of Treatment Not on file documented as of this encounter Visit Diagnoses Diagnosis Psoriatic arthritis ([facility]) Psoriatic arthropathy OA (osteoarthritis) of knee Osteoarthrosis, [...] documented as of this encounter Care Teams Electric Plater Relationship Specialty Start Date End Date Remedios Mehta MD [address] [place] [phone] PCP - General 02/19/09 01/04/15 documented as of this encounter
--- OUTSIDE RECORDS SUMMARY | 2024-09-17 15:24 | XMS_ITS | Encounter Summary ---
Author Organization [facility] Address [address] [place] [address] Care Team Providers Care Color Maker Dyer Name Role Phone Remedios Mehta MD Primary Care Provider [phone] [phone] Encounter Details Date Type Department Care Team (Late st Contact Info) Description 08/19/2011 Abstract [facility] Medicine [address] [address] Remedios Mehta MD [address] [place] [phone] Social History Tobacco Use Types Packs/Day [...] on filedocumented in this encounter Care Teams Color Maker Dyer Relationship Specialty Start Date End Date Remedios Mehta MD [address] [place] [phone] PCP - General 02/19/09 01/04/15 documented as of this encounter
--- OUTSIDE RECORDS SUMMARY | 2024-09-17 15:24 | XMS_ITS | Encounter Summary ---
Author Organization [facility] Address [address] [place] [address] Care Team Providers Care Brim Pouncer Machine Operator Name Role Phone Remedios Mehta MD Primary Care Provider +1 -[phone] Reason for Referral * Consult, Test and Treat (Routine) - Closed Specialty Diagnoses / Procedures Referred By Joao proctor Referred To Contact Rehab Therapies Diagnoses Breast lobule hyperplasia Back pain Remedios Mehta MD Phone: tel: fax: [address] [address] Phone: tel: fax: Referral ID Status Reason Start Date Expiration Date V isits Requested Visits Authorized [id number] Closed Specialty Services Required 04/15/2011 1 1 Question Answer Reason for Request: acquatic physical therapy needed for back pain Comments Closest to [place] as possible * Consult (Routine) - Closed Specialty Diagnoses / Procedures Referred By Joao proctor Referred To Contact Plastic Surgery Diagnoses Breast lobule hyperplasia Back pain Fibromyalgia Remedios Mehta MD Phone: tel: fax: Referral ID Status Reason Start Date Expiration Date V isits Requested Visits Authorized [id number] Closed Specialty Services Required 04/15/2011 1 1 Question Answer Reason for Request: severe back pain, debilitating, with bilateral breast hyperplasia - needs breast reduction Reason for Visit * Reason Comments Fibromyalgia Depression Back Pain clam bed worker has r ecommended breast reduction Encounter Details Date Type Department Care Team (Late st Contact Info) Description 04/15/2011 8:30 EDT Office Visit [address] [address] Remedios Mehta MD [address] [place] [phone] Back pain; Breast lobule hyperplasia; Fibromyalgia; [...] 04/11/2011 1024 EDT documented in this encounter Mental Status [...] from the original note were not included. [facility] Patient Instructions Breast Reduction: What to Expect [...] litter or dog food bags, a vacuum hand rug cleaner, or anything that weighs more than [...] your doctor if you can take an zvpm-rey-koymczj medicine. ?? If you think your pain [...] Where can you learn more? Go to www.[employer].net/fahc Enter T113 in the search box to learn more about Breast Reduction: What to Expect at Home. ?? 4960-7998 [employer]. Care instructions adapted under license by [facility], [facility]. This care instruction is for use with your licensed healthcare professional. If you have questions about a medical condition or this instruction, always ask your healthcare professional. [employer] disclaims any warranty or liability for your use of this information. Content Version: 8.8.25793; Last Revised: April 10, 2010[facility] Patient Instructions Breast Reduction: Before Your Surgery [...] living will and a durable power of consumer attorney for health care--let your doctor know. [...] not apply lotions, perfumes, deodorants, or nail guatemalan. ?? Do NOT shave the surgical site [...] Where can you learn more? Go to www.[employer].net/fahc Enter E381 in the search box to learn more about Breast Reduction: Before Your Surgery. ?? 2759-9024 [employer]. Care instructions adapted under license by [facility], [facility]. This care instruction is for use with your licensed healthcare professional. If you have questions about a medical condition or this instruction, always ask your healthcare professional. [employer] disclaims any warranty or liability for your use of this information. Content Version: 8.8.26083; Last Revised: December 02, 2008 documented in this encounter Progress Notes * Eboni Escalera - 04/15/2011930 EDT Venipuncture performed per order of Dr Remedios Strong. Eboni Escalera MA * Remedios Strong MD - 04/15/2011906 EDT Subjective: Patient ID: Cherelle Husain is an 51 y.o. female. Chief Complaint Patient presents with ??? Fibromyalgia ??? Depression ??? Back Pain clam bed worker has recommended breast reduction HPI Cherelle's children threw her a 51th birthday green party yesterday. Happy but sore. Here for follow up and to discuss a few things. Her clam bed worker wants her to get a breast reduction. [...] fluticasone (FLONASE) 50 mcg/Actuation nasal spray 1 [place] by Nasal route daily. 1 Bottle 5 [...] (04/15/2011 8:52 EDT) Cholesterol 243 mg/dl [facility] Comment:Desirable:<200 Borde rline High:200-239 High:>xg=771 Triglycerides 127 35 - 160 mg/dl [facility] HDL 45 mg/dl [facility] Comment:Low:<40 High(Desirab le):>or=60 LDL, Calculated 173 mg/dl [facility] Comment: Optimal:<100 Above optimal:100-129 Borderline High:130-159 High:160-189 Very High:>rp=657 Chol/HDL Ratio 5.4 [facility] Fasting? Unknown [facility] Blood specimen (specimen) 04/15/2011 8:52 EDT 04/15/2011 17:34 EDT us Remedios Mehta MD CHEMISTRY & BLOOD GAS ORD ERABLES Final Result [facility] [address] [place] [address] documented in this encounter Visit Diagnoses Diagnosis Back pain Backache, unspecified Breast lobule hyperplasia Hypertrophy of breast Fibromyalgia Mylagia and myositis, unspecified Asthma Unspecified asthma Depressive disorder Depressive disorder, not elsewhere classified Hyperlipidemia Other and unspecified hyperlipidemia IC (irritable colon) Irritable bowel syndrome documented in this encounter Care Teams Brim Pouncer Machine Operator Relationship Specialty Start Date End Date Remedios Mehta MD [address] [place] [phone] PCP - General 02/19/09 01/04/15 documented as of this encounter
--- OUTSIDE RECORDS SUMMARY | 2024-09-17 15:24 | XMS_ITS | Encounter Summary ---
Author Organization [facility] Address [address] [place] [address] Care Team Providers Care Rubber Gasket Inspector Trimmer Name Role Phone Remedios Mehta MD Primary Care Provider [phone] Encounter Details Date Type Department Care Team (Late st Contact Info) Description 08/11/2011 Orders Only [facility] Total Joint Program - [address] [place], [place] [phone] Yonathan Moreland MD Knee pain (Primary Dx) [...] AM Clinical history: 719.46-PAIN IN JOINT, LOWER MZM-DVK-1-CM right total knee replacement due to osteoarthritis [...] AM Clinical history: 719.46-PAIN IN JOINT, LOWER ZVH-VKG-5-CM right total knee replacement due to osteoarthritis [...] tissues are grossly unremarkable. Yonathan Moreland MD [facility] ORDERABLES Final Result * KNEE 1 OR 2 VIEWS (08/15/2011 10:32 EDT) Anatomical Region Laterality Modality Other 08/15/2011 10:3 2 EDT 08/15/2011 10:55 EDT Narrative 08/15/2011 10:55 EDT Two views of the right knee and one view of the left knee dated ??Aug 15, 2011 10:32:54 AM Clinical history: 719.46-PAIN IN JOINT, LOWER KWN-MZL-7-CM right total knee replacement due to osteoarthritis [...] AM Clinical history: 719.46-PAIN IN JOINT, LOWER UCS-MKH-1-CM right total knee replacement due to osteoarthritis [...] leg documented in this encounter Care Teams Rubber Gasket Inspector Trimmer Relationship Specialty Start Date End Date Remedios Mehta MD [address] [place] [phone] PCP - General 02/19/09 01/04/15 documented as of this encounter
--- OUTSIDE RECORDS SUMMARY | 2024-09-17 15:24 | XMS_ITS | Encounter Summary ---
Author Organization [facility] Address [address] [place] [address] Care Team Providers Care Chiller Technician Name Role Phone Remedios Mehta MD Primary Care Provider [phone] [phone] Reason for Visit * Reason Onset Date Comments Appointment Related 05/03/2011 Encounter Details Date Type Department Care Team (Late st Contact Info) Description 05/03/[address] [phone] Kailyn Winston PT Appointment Related Social History [...] 1234 EDT REHABILITATION THERAPIES [facility] [address] [place] [address] Physical Therapy Contact Note Cherelle called in [...] on filedocumented in this encounter Care Teams Chiller Technician Relationship Specialty Start Date End Date Remedios Mehta MD [address] [place] [phone] PCP - General 02/19/09 01/04/15 documented as of this encounter
--- OUTSIDE RECORDS SUMMARY | 2024-09-17 15:24 | XMS_ITS | Encounter Summary ---
Author Organization [facility] Address [address] [place] [address] Care Team Providers Care Flare Worker Name Role Phone Remedios Mehta MD Primary Care Provider [phone] Reason for Visit * Reason Comments Follow-up s/p right TKR 6.17.1 0 Encounter Details Date Type Department Care Team (Late st Contact Info) Description 08/15/2011 9:40 EDT Office Visit [facility] Total Joint Program - [address] [place] [address] Yonathan Moreland MD OA (osteoarthritis) of knee [...] documented in this encounter Progress Notes * Christian Monk [...] December 2009 included AP and sunrise views. [place] views show no significant patellofemoral arthritis. AP [...] MD - Job ID: SM Doc ID: [id number] Ext Doc ID: [id number] cc: * Christian Monk. - 08/15/2011 1731 EDT This office note has been dictated. CHRISTIAN MONK MD documented in this encounter Plan of Treatment Not on file documented as of this encounter Visit Diagnoses Diagnosis OA (osteoarthritis) of knee- Primary Osteoarthrosis, unspecified whether generalized or localized, lower leg documented in this encounter Care Teams Flare Worker Relationship Specialty Start Date End Date Remedios Mehta MD [address] [place] [phone] PCP - General 02/19/09 01/04/15 documented as of this encounter
--- OUTSIDE RECORDS SUMMARY | 2024-09-17 15:24 | XMS_ITS | Encounter Summary ---
Author Organization [facility] Address [address] [place] [address] Care Team Providers Care School Age Program Associate Name Role Phone Remedios Mehta MD Primary Care Provider [phone] [phone] Reason for Visit * Reason Onset Date Comments Medications Refill 08/19/2011 Encounter Details Date Type Department Care Team (Late st Contact Info) Description 08/19/[address] [address] Remedios Mehta MD [address] [place] [phone] Medications Refill Social History Tobacco Use [...] - 08/19/2011 1042 EDT Last refill date 16 Last visit date 9.7 Next visit date [...] documented as of this encounter Care Teams School Age Program Associate Relationship Specialty Start Date End Date Remedios Mehta MD [address] [place] [phone] PCP - General 02/19/09 01/04/15 documented as of this encounter
--- OUTSIDE RECORDS SUMMARY | 2024-09-17 15:24 | XMS_ITS | Encounter Summary ---
Author Organization [facility] Address [address] [place] [address] Care Team Providers Care Centerless Grinder Operator Name Role Phone Remedios Mehta MD Primary Care Provider [phone] [phone] Reason for Visit * Reason Onset Date Comments Medications Refill 05/31/2011 Encounter Details Date Type Department Care Team (Late st Contact Info) Description 05/31/[address] [address] Remedios Mehta MD [address] [place] [phone] Medications Refill Social History Tobacco Use [...] * Telephone Encounter - Brook Weathers - 05/31/2011 0835 EDT Last rx 03/04/11 [...] documented as of this encounter Care Teams Centerless Grinder Operator Relationship Specialty Start Date End Date Remedios Mehta MD [address] [place] [phone] PCP - General 02/19/09 01/04/15 documented as of this encounter
--- OUTSIDE RECORDS SUMMARY | 2024-09-17 15:24 | XMS_ITS | Encounter Summary ---
Author Organization [facility] Address [address] [place] [address] Care Team Providers Care Cutter Grind Tool Technician Name Role Phone Remedios Mehta MD Primary Care Provider [phone] [phone] Reason for Visit * Reason Onset Date Comments Medications Refill 03/17/2011 Encounter Details Date Type Department Care Team (Late st Contact Info) Description 03/17/[address] [address] Remedios Mehta MD [address] [place] [phone] Medications Refill Social History Tobacco Use [...] Refills Last Filled Start Date End Date budesonide-formote rol (SYMBICORT) 80-4.5 mcg/Actuation HFAA inhaler Inhale 2 Puffs as directed 2 times daily. 1 Inhaler 5 03/17/2011 2 fluticasone (FLONASE) 50 mcg/Actuation nasal spray 1 [place] by Nasal route daily. 1 Bottle 5 03/17/2011 2 documented in this encounter Miscellaneous Notes [...] on filedocumented in this encounter Care Teams Cutter Grind Tool Technician Relationship Specialty Start Date End Date Remedios Mehta MD [address] [place] [phone] PCP - General 02/19/09 01/04/15 documented as of this encounter
--- OUTSIDE RECORDS SUMMARY | 2024-09-17 15:24 | XMS_ITS | Encounter Summary ---
Author Organization [facility] Address [address] [place] [address] Care Team Providers Care Shutdown Planner Name Role Phone Remedios Mehta MD Primary Care Provider [phone] [phone] Reason for Referral * Consult (Routine) - Closed Specialty Diagnoses / Procedures Referred By Joao proctor Referred To Contact Plastic Surgery Diagnoses Back pain Belen Finley MD [address] [place] [address] Phone: tel: fax: Referral ID Status Reason Start Date Expiration Date V isits Requested Visits Authorized [id number] Closed Specialty Services Required 04/11/2011 1 1 Question Answer Reason for Request: breast reduction - severe back pain from enlargened breasts Reason for Visit * Reason Comments Fibromyalgia same as last visit Joint Pain generalized Encounter Details Date Type Department Care Team (Late st Contact Info) Description 04/11/2011 10:15 EDT Office Visit [facility] Rheumatology & Immunology - [address] [address] Unknown, Provider, Belen Ramesh MD [address] [place] [phone] Chandana Joyner Chi, MD [address] [place] [address], [address] [place] [phone] Psoriatic arthropathy ([facility]) (Primary Dx); Back pain Social History Tobacco [...] Date pregabalin (LYRICA) 25 mg capsule Take 1 [...] fluticasone (FLONASE) 50 mcg/Actuation nasal spray 1 [place] by Nasal route daily. 1 Bottle 5 [...] Visit Diagnoses Diagnosis Psoriatic arthropathy ([facility])- Primary Psoriatic arthropathy Back pain Backache, [...] may reflect changes made after this encounter. hydrocodone-aceta minophen (LORTAB;VICODIN) 5-500 mg per tablet Take 1 Tab by mouth every 4 hours. 06/08/2011 added in this encounter Care Teams Shutdown Planner Relationship Specialty Start Date End Date Remedios Mehta MD [address] [place] [phone] PCP - General 02/19/09 01/04/15 documented as of this encounter
--- OUTSIDE RECORDS SUMMARY | 2024-09-17 15:24 | XMS_ITS | Encounter Summary ---
Author Organization [facility] Address [address] [place] [address] Care Team Providers Care Automotive Parts Counter Assistant Name Role Phone Remedios Mehta MD Primary Care Provider [phone] [phone] Encounter Details Date Type Department Care Team (Latest Contact Info) Description 09/14/2011 9:59 EST - 09/14/2011 23:59 EST Hospital Encounter [facility] [place] [address] [place] [address] Remedios Mehta MD [address] [place] [phone] Discharge Disposition: Home or Self Care [...] fluticasone (FLONASE) 50 mcg/Actuation nasal spray 1 [place] by Nasal route daily. 1 Bottle 5 03/17/2011 2 hydrocodone-acet aminophen (LORTAB;VICODIN) 5-500 mg per tabletIndication s:Arthritis Take 1 Tab by mouth every 6 hours as needed for Pain. 84 Tab 1 08/19/2011 1 hydroxychloroqui ne (PLAQUENIL) 200 mg tabletIndication [...] mouth daily. 30 Tab 1 07/12/2011 1 trazodone (DESYREL) 100 mg tabletIndication s:Myalgia [...] on filedocumented in this encounter Care Teams Automotive Parts Counter Assistant Relationship Specialty Start Date End Date Remedios Mehta MD [address] [place] [phone] PCP - General 02/19/09 01/04/15 documented as of this encounter
--- OUTSIDE RECORDS SUMMARY | 2024-09-17 15:24 | XMS_ITS | Encounter Summary ---
Author Organization [facility] Address [address] [place] [address] Care Team Providers Care Structural Steel Detailer Name Role Phone Remedios Mehta MD Primary Care Provider [phone] [phone] Encounter Details Date Type Department Care Team (Latest Contact Info) Description 04/26/2011 10:03 EDT - 04/26/2011 23:59 EDT Hospital Encounter [facility] - Other [address] [place], [place] [address] Remedios Mehta MD [address] [place] [phone] Discharge Disposition: Home or Self Care [...] fluticasone (FLONASE) 50 mcg/Actuation nasal spray 1 [place] by Nasal route daily. 1 Bottle 5 [...] or Self Shelter documented in this encounter Plan of Treatment Not on file documented as of this encounter Visit Diagnoses Not on filedocumented in this encounter Care Teams Structural Steel Detailer Relationship Specialty Start Date End Date Remedios Mehta MD [address] [place] [phone] PCP - General 02/19/09 01/04/15 documented as of this encounter
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
--- OUTSIDE RECORDS SUMMARY | 2024-09-17 15:24 | XMS_ITS | Encounter Summary ---
Author Organization [facility] Address [address] [place] [address] Care Team Providers Care Senior Stack Engineer Name Role Phone Remedios Mehta MD Primary Care Provider +1 [phone] Encounter Details Date Type Department Care Team (Late st Contact Info) Description 08/08/2011 Orders Only [facility] Family Medicine - [address] [address] Mago Vallecillo MD [address] [place] [address] Depression, major (Primary Dx); Anxiety [...] 1 08/13/2011 08/31/2011 citalopram (CELEXA) 20 mg tabletIndications:D epression, major Take 1 Tab by mouth 2 times daily. 20 Tab 0 08/13/2011 08/31/2011 documented in this encounter Progress Notes * Mago Vallecillo MD - 08/08/20112114 EDT There is a new FDA recommendation [...] as of this encounter Care Teams Senior Stack Engineer Relationship Specialty Start Date End Date Remedios Mehta MD [address] [place] [phone] PCP - General 02/19/09 01/04/15 documented as of this encounter
--- OUTSIDE RECORDS SUMMARY | 2024-09-17 15:24 | XMS_ITS | Encounter Summary ---
Author Organization [facility] Address [address] [place] [address] Care Team Providers Care Director Of Laboratory Operations Name Role Phone Remedios Mehta MD Primary Care Provider + -[phone] Encounter Details Date Type Department Care Team (Late st Contact Info) Description 12/31/2010 10:33 EST - 12/31/2010 23:59 EST Hospital Encounter [facility] [address] [place], [place] [address] Yovana Callejas MD [address] [place] [address] [address] Unspecified inflammatory polyarthropathy; Encounter for [...] hours as needed for Wheezing. 06/04/20 12 CALCIUM CARBONATE/VITAMIN D3 (CALCIUM 600 WITH VITAMIN D3 ORAL) Take 600 mg by mouth 2 times daily. 08/01/20 12 citalopram (CELEXA) 40 mg tabletIndications:De pression Take 1 Tab by mouth daily. 90 Tab 3 1 02/18/20 11 fluticasone (FLONASE) 50 mcg/Actuation nasal spray 1 [place] by Nasal route daily. 02/26/20 11 fluticasone-salmeter ol (ADVAIR DISKUS) 500-50 mcg/Dose diskus inhaler Inhale 1 Puff as directed 2 times daily. 1 Each 5 0 01/15/20 11 FOSINOPRIL SODIUM (MONOPRIL ORAL) Take 20 mg by mouth 2 times daily. Pt not sure of dose 0 02/26/20 11 hydrocodone-acetamin ophen (LORTAB;VICODIN) 5-500 mg per tablet Take 1 Tab by mouth 3 times daily. 90 Tab 3 1 02/02/20 11 hydroxychloroquine (PLAQUENIL) 200 mg tabletIndications:Ar thropathy Take 1 Tab by mouth 2 times daily. 60 Tab 11 0 03/04/20 11 ketoconazole (NIZORAL) 2 % creamIndications:Jace h [...] mouth 2 times daily. 180 Tab 4 0 03/30/20 11 omeprazole (PRILOSEC) 20 mg capsule Take 1 Cap by mouth 2 times daily. dose increase 60 Cap 3 0 07/12/20 11 pantoprazole (PROTONIX) 40 mg tablet Take 80 mg by mouth daily. 02/26/20 11 pregabalin (LYRICA) 25 mg capsule Take by mouth. 0 11 tramadol (ULTRAM) 50 mg tablet Take 50 mg by mouth every 6 hours as needed. 02/18/20 11 trazodone (DESYREL) 100 mg tabletIndications:My algia and myositis,Arthropathy Take 1 Tab by mouth at bedtime. 30 Tab 11 0 02/18/20 11 zafirlukast (ACCOLATE) 20 mg tablet Take 20 mg by mouth 2 times daily. 01/15/20 11 documented as of this encounter Discharge [...] [facility] Type of Diff: Automated [facility] Blood specimen (specimen) 12/31/2010 10:41 EST 12/31/2010 10:42 EST us Yovana Callejas MD PACKAGES & DNA PROBE ORD ERABLES Final Result [facility] [address] [place] [address] * (ABNORMAL) COMPREHENSIVE METABOLIC PANEL (CMP) (12/31/2010 [...] - 46 U/L [facility] ALT 29 9 - 52 U/L [...] Serum 83 70 - 100 mg/dl [facility] Fasting? Yes [facility] Blood specimen (specimen) 12/31/2010 10:41 EST 12/31/2010 10:42 EST us Yovana Caleljas MD CHEMISTRY & BLOOD GAS OR DERABLES Final Result [facility] [address] [place] [address] documented in this encounter Visit Diagnoses Diagnosis Unspecified inflammatory polyarthropathy Encounter for long-term (current) use of other medications documented in this encounter Care Teams Director Of Laboratory Operations Relationship Specialty Start Date End Date Remedios Mehta MD [address] [place] [phone] PCP - General 02/19/09 01/04/15 documented as of this encounter
--- OUTSIDE RECORDS SUMMARY | 2024-09-17 15:25 | XMS_ITS | Encounter Summary ---
Author Organization [facility] Address [address] [place] [address] Care Team Providers Care Pediatric Neurologist Name Role Phone Remedios Mehta MD Primary Care Provider +1 [phone] Encounter Details Date Type Department Care Team (Latest Contact Info) Description 08/05/2010 10:48 EDT - 08/05/2010 14:22 EDT Hospital Encounter [facility] Perioperative Services- [facility] [address] [place] [address] Yonathan Moreland MD Discharge Disposition: Home or [...] 4 hours as needed for Wheezing. 2 CALCIUM CARBONATE/VITAMI N D3 (CALCIUM 600 WITH VITAMIN D3 ORAL) Take 600 mg by mouth 2 times daily. 2 docusate sodium (COLACE) 100 mg capsule Take 2 Caps by mouth 2 times daily. 04/20/2010 0 duloxetine (CYMBALTA) 20 mg capsule Take 20 mg by mouth 2 times daily. 09/27/2010 1 enoxaparin (LOVENOX) 30 mg/0.3 mL injection Inject 0.3 mL into the skin 2 times daily. 14 Syringe 1 07/30/2010 0 fluticasone-salm eterol (ADVAIR DISKUS) 500-50 mcg/Dose diskus inhaler Inhale 1 Puff as directed 2 times daily. 1 Each 5 02/03/2010 1 FOSINOPRIL SODIUM (MONOPRIL ORAL) Take 20 mg by mouth 2 times daily. Pt not sure of dose 06/22/2010 1 hydrocodone-acet aminophen (LORTAB;VICODIN) 5-500 mg per tablet Take 1-2 Tabs by mouth. TAKE 1-2 TABS PO EVERY 4-6 HOURS PRN PAIN 40 Tab 0 06/14/2010 0 hydroxychloroqui ne (PLAQUENIL) 200 mg tabletIndication s:Arthropathy Take 1 Tab by mouth 2 times daily. 60 Tab 11 02/17/2010 1 ketoconazole (NIZORAL) 2 % creamIndications :Rash Apply topically daily. Apply to affect area(s) as directed. 1 Tube 1 02/17/2010 1 loratadine (CLARITIN) 10 mg tabletIndication s:Allergic rhinitis Take 1 Tab by mouth daily. 30 Tab 11 02/17/2010 1 lorazepam (ATIVAN) 0.5 mg Tab Take 0.5 mg by mouth as needed. 2 methocarbamol (ROBAXIN) 500 mg tablet Take 1-2 Tabs by mouth every 6 hours as needed (muscle spasms). 60 Tab 0 07/13/2010 0 metoprolol (LOPRESSOR) 25 mg tabletIndication s:Hypertension Take 1 Tab by mouth 2 times daily. 180 Tab 4 03/10/2010 1 omeprazole (PRILOSEC) 20 mg capsule Take 1 Cap by mouth 2 times daily. dose increase 60 Cap 3 02/03/2010 1 PEG 3350-Electrolyte s (MIRALAX) 17 gram packet Take 17 g by mouth as needed. 09/27/2010 0 trazodone (DESYREL) 100 mg tabletIndication s:Myalgia and myositis,Arthrop athy Take 1 Tab by mouth at bedtime. 30 Tab 11 06/28/2010 1 zafirlukast (ACCOLATE) 20 mg tablet Take 20 mg by mouth 2 times daily. 1 documented as of this encounter Discharge [...] right knee manipulation Was told by an [facility] anesthesiologist in the past AFTER anesthesia [...] Anxiety? GERD (gastroesophageal reflux disease)? Fibromyalgia? confirmed?? 1979,1982? 2 vaginal deliveries? Current outpatient prescriptions ordered [...] Wt 96.525 kg (212 lb 12.8 oz) [facility]03/09/2010 Physical Exam Constitutional: She is oriented [...] time. ? Assessment:?? Cherelle was seen at [facility] today for a pre-op CPE My only [...] corticosteroid right knee SURGEON: Yonathan Moreland MD APPLIANCE TESTER: MD Trang Francis SA ANESTHESIA: Procedural sedation INDICATIONS: Cherelle Husain is a 50 yrs year old patient who has developed stiffness following elective right kneearthroplasty now 16 weeks postop and presents at this time for EUA, ERICA and corticosteroid injection. SPECIMENS: none FLUID REPLACEMENT: [...] follow-up from patient to my office (Kim Gallowayten [phone]) in one week to update on patient's [...] 08/05/2010 documented in this encounter Care Teams Pediatric Neurologist Relationship Specialty Start Date End Date Remedios Mehta MD [address] [place] [phone] PCP - General 02/19/09 01/04/15 documented as of this encounter
--- OUTSIDE RECORDS SUMMARY | 2024-09-17 15:25 | XMS_ITS | Encounter Summary ---
Author Organization [facility] Address [address] [place] [address] Care Team Providers Care Corporate Consultant Name Role Phone Remedios Mehta MD Primary Care Provider + -[phone] Encounter Details Date Type Department Care Team (Latest Contact Info) Description 06/28/2010 13:03 EDT - 06/28/2010 23:59 EDT Hospital Encounter [facility] [address] [place] [address] Conchita Garza NP [address] [place] [address] Discharge Disposition: Home or Self Care Social [...] by mouth 2 times daily. 09/27/2010 1 fluticasone-salm eterol (ADVAIR DISKUS) 500-50 mcg/Dose diskus [...] needed (muscle spasms). 60 Tab 0 06/07/2010 0 metoprolol (LOPRESSOR) 25 mg tabletIndication s:Hypertension [...] or Self Residential documented in this encounter Procedure Notes * Geoffrey Fregoso MD - 06/28/2010 1517 EDT IR Procedure Note Procedure: US guided popliteal cyst aspiration Date Performed: 06/28/2010 Radiologist/Nutritionists(s): Louis/Ildefonso Sedation/Anesthesia: Local Estimated Blood Loss: none [...] up with Conchita FREGOSO MD 06/28/2010 15:17 Cosigned by Marcus Myers MD at 11/08/2010 13:16 EST documented in this encounter Miscellaneous Notes [...] (06/28/2010 15:15 EDT) Specimen Description Synovial Fluid [facility] Gram Smear Result Rare Polys No mononuclear cells seen. No bacteria seen [facility] Result No growth [facility] Report Status Final 07/03/2010 [facility] Specimen of unknown material (specimen) 06/28/2010 15:15 EDT 06/28/2010 16:12 EDT us Geoffrey Fregoso MD MICROBIOLOGY - GENERAL ARNOLDO TREJO Final Result [facility] [address] [place] [address] documented in this encounter Visit Diagnoses Not on filedocumented in this encounter Care Teams Corporate Consultant Relationship Specialty Start Date End Date Remedios Mehta MD [address] [place] [phone] PCP - General 02/19/09 01/04/15 documented as of this encounter
--- OUTSIDE RECORDS SUMMARY | 2024-09-17 15:25 | XMS_ITS | Encounter Summary ---
Author Organization [facility] Address [address] [place] [address] Care Team Providers Care Derrickman Helper Name Role Phone Remedios Mehta MD Primary Care Provider [phone] Encounter Details Date Type Department Care Team (Late st Contact Info) Description 07/01/2010 Abstract Used for ABSTRACTING Data [phone] Remedios Mehta MD [address] [place] [phone] Social History Tobacco Use Types Packs/Day [...] Entry Date Author Yes 04/15/2010 17:15 EDT Baal Veronica RN documented in this encounter Plan of Treatment Not on file documented as of this encounter Visit Diagnoses Not on filedocumented in this encounter Care Teams Derrickman Helper Relationship Specialty Start Date End Date Remedios Mehta MD [address] [place] [phone] PCP - General 02/19/09 01/04/15 documented as of this encounter
--- OUTSIDE RECORDS SUMMARY | 2024-09-17 15:25 | XMS_ITS | Encounter Summary ---
Author Organization [facility] Address [address] [place] [address] Care Team Providers Care Medical Records Library Professor Name Role Phone Remedios Mehta MD Primary Care Provider [phone] Encounter Details Date Type Department Care Team (Late st Contact Info) Description 09/06/2010 Documentation Visit [facility] Rehabilitation Therapy - [address] [address] Kathy Figueroa PT Social History Tobacco Use [...] documented in this encounter Progress Notes * Kathy Figueroa - 09/06/2010 3745 EST [facility] [address] [place] [phone] Physical Therapy Discontinue/Discharge Note Date of Service: [...] should her plans for rehabilitation change. KATHY FIGEUROA, PT 09/06/2010 13:32 documented in this encounter Plan of Treatment Not on file documented as of this encounter Visit Diagnoses Not on filedocumented in this encounter Care Teams Medical Records Library Professor Relationship Specialty Start Date End Date Remedios Mehta MD [address] [place] [phone] PCP - General 02/19/09 01/04/15 documented as of this encounter
--- OUTSIDE RECORDS SUMMARY | 2024-09-17 15:25 | XMS_ITS | Encounter Summary ---
Author Organization [facility] Address [address] [place] [address] Care Team Providers Care Netting Weaver Name Role Phone Remedios Mehta MD Primary Care Provider [phone] [phone] Reason for Referral * Consult, Test and Treat (Routine) - Closed Specialty Diagnoses / Procedures Referred By Joao proctor Referred To Contact Diagnoses Myalgia and myositis Yovana Callejas MD Phone: tel: fax: Referral ID Status Reason Start Date Expiration Date V isits Requested Visits Authorized [id number] Closed Specialty Services Required 12/31/2010 1 1 [...] Info) Description 12/31/2010 9:15 EST Office Visit [facility] Rheumatology & Immunology - [facility] [address] [place], [place] [address] Yovana Callejas MD [address] [place] [address] [phone] Unspecified inflammatory polyarthropathy (Primary Dx); Encounter [...] Blood Pressure 108/68 12/31/2010916 EST Pulse 70 12/31/2010 09 EST Temperature - - Respiratory Rate - - Oxygen Saturation - - Inhaled Oxygen Concentration - - Weight 98 kg (216 lb) 12/31/2010916 EST Height 152.4 cm (5') 12/31/2010916 EST Body Mass Index 42.18 12/31/2010 09 EST documented in this encounter Mental Status [...] three months, standing order at [facility]. Methotrexate therapy is taken one day a [...] Start Date End Date methotrexate 2.5 mg tabletIndications:Uns pecified inflammatory polyarthropathy Take 4 Tabs by mouth once a week. 16 Tab 5 12/31/2010 1 documented in this encounter Progress Notes * Yovana Callejas MD - 12/31/2010 6267 EST I personally examined the patient and [...] above Return in 2-3 months. * Heladio Rodriguez - 12/31/2010 1133 EST Chief Complaint Patient [...] fluticasone (FLONASE) 50 mcg/Actuation nasal spray 1 [place] by Nasal route daily. ??? pregabalin (LYRICA) [...] Physician Inpatient MD LAB INFO SERVICE AND SUPP ORT & PHONE RESULT Final Result documented in this encounter Visit Diagnoses Diagnosis Unspecified inflammatory polyarthropathy- Primary Encounter for long-term (current) use of other medications Myalgia and myositis Mylagia and myositis, unspecified documented in this encounter Care Teams Netting Weaver Relationship Specialty Start Date End Date Remedios Mehta MD [address] [place] [phone] PCP - General 02/19/09 01/04/15 documented as of this encounter
--- OUTSIDE RECORDS SUMMARY | 2024-09-17 15:25 | XMS_ITS | Encounter Summary ---
Author Organization [facility] Address [address] [place] [address] Care Team Providers Care Supervisor Inspecting Name Role Phone Remedios Mehta MD Primary Care Provider + -[phone] Reason for Visit * Reason Onset Date Comments Appointment Related 08/18/2010 Encounter Details Date Type Department Care Team (Late st Contact Info) Description 08/18/[address] [address] Apolinar William, PT [address] [place] [phone] Appointment Related Social History Tobacco Use [...] encounter Miscellaneous Notes * Telephone Encounter - Baslow, Dayna A - 08/18/2010 0947 EDT The patient called to cancel today's appointment due to insurance problems. Will call to reschedulewhen problems are resolved. No further appointments scheduled at this time. documented in this encounter Plan of Treatment Not on file documented as of this encounter Visit Diagnoses Not on filedocumented in this encounter Care Teams Supervisor Inspecting Relationship Specialty Start Date End Date Remedios Mehta MD [address] [place] [phone] PCP - General 02/19/09 01/04/15 documented as of this encounter
--- OUTSIDE RECORDS SUMMARY | 2024-09-17 15:25 | XMS_ITS | Encounter Summary ---
Author Organization [facility] Address [address] [place] [address] Care Team Providers Care Cell Geneticist Name Role Phone Remedios Mehta MD Primary Care Provider Reason for Visit * Reason Comments Cyst pre op on cyst back of knee right leg Encounter Details Date Type Department Care Team (Late st Contact Info) Description 07/30/2010 9:15 EDT Office Visit [facility] Family Medicine [address] [phone] Yvonne Ibarra MD [address] [place], [place] [phone] Stiffness of knee joint; Knee joint replacement [...] 06/28/2010 1551 EDT documented in this encounter Mental Status * Because of a physical, mental, or emotional condition, do you have serious difficulty concentrating, remembering, or making decisions? (5 years old or older) Answer Entry Date Author Yes 04/15/2010 17:15 EDT Bala Veronica RN documented in this encounter Progress Notes * Yvonne Ibarra - 07/30/2010 0951 EDT Subjective: Patient ID: [...] Wt 96.525 kg (212 lb 12.8 oz) [facility]03/09/2010 Physical Exam Constitutional: She is oriented to [...] and time. Assessment: Cherelle was seen at [facility] today for a pre-op CPE My [...] 18:09 EDT Yonathan Moreland MD CHEMISTRY & BLOOD GAS ORDERABLES Final Result [facility] [address] [place] [address] * SED. RATE:WESTERGREN (07/30/2010 10:06 EDT) Sed. Rate Westergren 14 0 - 20 mm/hr [facility] Comment: Note: Sample greater than 4 hrs old (but less than 12 hrs) when tested. If refrigerated, sample is stable when tested within 12 hours of collection. Blood specimen (specimen) 07/30/2010 10:06 EDT 07/30/2010 18:09 EDT us Yonathan Moreland MD HEMATOLOGY & PF4 ORDER ONELIA Final Result Performing Organization Address City/[facility]/ZIP Co de Phone Number [facility] [address] [place] [address] * (ABNORMAL) HEMAGRAM (07/30/2010 10:06 EDT) WBC [...] (specimen) 07/30/2010 10:06 EDT 07/30/2010 18:09 EDT us Yonathan Moreland MD HEMATOLOGY & PF4 ORDER ONELIA Final Result Performing Organization Address [facility] de Phone Number [facility] [address] [place] [address] documented in this encounter Visit Diagnoses Diagnosis Stiffness of knee joint Stiffness of joint, not elsewhere classified, lower leg Knee joint replacement by other means documented in this encounter Care Teams Cell Geneticist Relationship Specialty Start Date End Date Remedios Mehta MD [address] [place] [phone] PCP - General 02/19/09 01/04/15 documented as of this encounter
--- OUTSIDE RECORDS SUMMARY | 2024-09-17 15:25 | XMS_ITS | Encounter Summary ---
Author Organization [facility] Address [address] [place] [address] Care Team Providers Care Laboratory Equipment Cleaner Name Role Phone Remedios Mehta MD Primary Care Provider [phone] [phone] Reason for Visit * Reason Comments Knee Pain right knee tka Encounter Details Date Type Department Care Team (Latest Contact Info) Description 06/23/2010 9:30 EDT Office Visit [facility] Total Joint Program - [address] [place] [address] Conchita Garza, HEIDE [address] [place], [place] [address] Osteoarthritis (Primary Dx) Social History Tobacco Use [...] 0930 EDT Height 152.4 cm (5') 06/23/2010 0930 EDT Body Mass Index 42.58 06/23/2010 0930 EDT documented in this encounter Mental Status [...] site documented in this encounter Care Teams Laboratory Equipment Cleaner Relationship Specialty Start Date End Date Remedios Mehta MD [address] [place] [phone] PCP - General 02/19/09 01/04/15 documented as of this encounter
--- OUTSIDE RECORDS SUMMARY | 2024-09-17 15:25 | XMS_ITS | Encounter Summary ---
Author Organization [facility] Address [address] [place] [address] Care Team Providers Care Tool Planner Name Role Phone Remedios Mehta MD Primary Care Provider + -[phone] Encounter Details Date Type Department Care Team (Late st Contact Info) Description 07/27/2010 Orders Only [facility] Total Joint Program - [address] [place], [place] [phone] Yonathan Moreland MD S/P TKR (total knee [...] MD IMG DIAGNOSTIC IMAGING ORDERABLES Final Result * KNEE 1 OR 2 VIEWS (07/28/2010 [...] means documented in this encounter Care Teams Tool Planner Relationship Specialty Start Date End Date Remedios Mehta MD [address] [place] [phone] PCP - General 02/19/09 01/04/15 documented as of this encounter
--- OUTSIDE RECORDS SUMMARY | 2024-09-17 15:25 | XMS_ITS | Encounter Summary ---
Author Organization [facility] Address [address] [place] [address] Care Team Providers Care Tying In Machine Operator Name Role Phone Remedios Mehta MD Primary Care Provider [phone] [phone] Reason for Visit * Reason Comments Depression Pain back,legs,shoulders Encounter Details Date Type Department Care Team (Late st Contact Info) Description 12/15/2010 14:45 EST Office Visit [address] [address] Remedios Mehta MD [address] [place] [phone] Arthropathy; Asthma; Depressive disorder; Obesity; Fibromyalgia; [...] 12/02/2010 1412 EST documented in this encounter Mental Status * Because of a physical, mental, or emotional condition, do you have serious difficulty concentrating, remembering, or making decisions? (5 years old or older) Answer Entry Date Author Yes 04/15/2010 17:15 EDT Bala Veronica RN documented in this encounter Ordered Prescriptions Prescription Sig Dispense Quantity Refills Last Filled Start Date End Date citalopram (CELEXA) 40 mg tabletIndications:D epression Take 1 Tab by mouth daily. 90 Tab 3 12/15/2010 02/17/2011 documented in this encounter Progress Notes * Remedios Storng MD - 12/16/20102050 EST Subjective: Patient ID: [...] fluticasone (FLONASE) 50 mcg/Actuation nasal spray 1 [place] by Nasal route daily. ??? pregabalin (LYRICA) [...] may reflect changes made after this encounter. tramadol (ULTRAM) 50 mg tablet Take 50 mg by mouth every 6 hours as needed. 02/17/2011 added in this encounter Care Teams Tying In Machine Operator Relationship Specialty Start Date End Date Remedios Mehta MD [address] [place] [phone] PCP - General 02/19/09 01/04/15 documented as of this encounter
--- OUTSIDE RECORDS SUMMARY | 2024-09-17 15:25 | XMS_ITS | Encounter Summary ---
Author Organization [facility] Address [address] [place] [address] Care Team Providers Care Door Maker Name Role Phone Remedios Mehta MD Primary Care Provider [phone] [phone] Encounter Details Date Type Department Care Team (Latest Contact Info) Description 06/22/2010 9:02 EDT - 06/22/2010 23:59 EDT Hospital Encounter [facility] [address] [place] [address] Yonathan Moreland MD Discharge Disposition: Auto Discharge [...] mouth as needed. 09/27/2010 0 trazodone (DESYREL) 50 mg tablet Take 1-2 Tabs by mouth at bedtime as needed for Sleep. 0 zafirlukast (ACCOLATE) 20 mg tablet Take 20 mg by mouth 2 times daily. 1 documented as of this encounter Discharge Disposition Disposition Code Departure Means Destination Auto Discharge Home documented in this encounter Plan of Treatment Not on file documented as of this encounter Visit Diagnoses Not on filedocumented in this encounter Care Teams Door Maker Relationship Specialty Start Date End Date Remedios Mehta MD [address] [place] [phone] PCP - General 02/19/09 01/04/15 documented as of this encounter
--- OUTSIDE RECORDS SUMMARY | 2024-09-17 15:25 | XMS_ITS | Encounter Summary ---
Author Organization [facility] Address [address] [place] [address] Care Team Providers Care Sports Leadership Instructor Name Role Phone Remedios Mehta MD Primary Care Provider + -[phone] Reason for Visit * Reason Onset Date Comments Other 09/15/2010 WOULD LIKE ADDEN DUM TO LETTER WHICH WENT TO SCHOOL - ADDENDUM TO STATE THAT SHE NEEDS ACTUAL BOOKS - ATTN: KALA ROSARIO (F) [phone]. SCHOOL SAYS CAN GO ON ORIGINAL LETTER ADDENDUM DATED TODAY. Encounter Details Date Type Department Care Team (Late st Contact Info) Description 09/15/2010 Telephone [facility] Rheumatology & Immunology - [facility] [address] [place], [place] [address] Yovana Callejas MD [address] [place] [address] [phone] Other (WOULD LIKE ADDENDUM TO LETTER WHICH WENT TO SCHOOL - ADDENDUM TO STATE THAT SHE NEEDS ACTUAL BOOKS - ATTN: KALA ROSARIO (F) [phone]. [facility] SAYS CAN GO ON ORIGINAL LETTER ADDENDUM [...] Encounter - Yovana Callejas MD - 09/15/2010 2000 EST This is going to have to be addressed through an appointment, patient has missed her last appt documented in this encounter Plan of Treatment Not on file documented as of this encounter Visit Diagnoses Not on filedocumented in this encounter Care Teams Sports Leadership Instructor Relationship Specialty Start Date End Date Remedios Mehta MD [address] [place] [phone] PCP - General 02/19/09 01/04/15 documented as of this encounter
--- OUTSIDE RECORDS SUMMARY | 2024-09-17 15:25 | XMS_ITS | Encounter Summary ---
Author Organization [facility] Address [address] [place] [address] Care Team Providers Care Bench Hand Name Role Phone Remedios Mehta MD Primary Care Provider + -[phone] Reason for Visit * Reason Onset Date Comments Appointment Related 08/11/2010 Encounter Details Date Type Department Care Team (Late st Contact Info) Description 08/11/2010 Telephone [facility] - [facility] [address] [place] [address] Apolinar William, PT [address] [facility] [address] [place] [phone] Appointment Related Social History Tobacco Use [...] encounter Miscellaneous Notes * Telephone Encounter - Roseline Barcenas - 08/11/2010 1002 EDT PATIENT CALLED TO CANCEL APPT, WAITING ON INSURANCE PAPERWORK. M.W. 08/11/10 documented in this encounter Plan of Treatment Not on file documented as of this encounter Visit Diagnoses Not on filedocumented in this encounter Care Teams Bench Hand Relationship Specialty Start Date End Date Remedios Mehta MD [address] [place] [phone] PCP - General 02/19/09 01/04/15 documented as of this encounter
--- OUTSIDE RECORDS SUMMARY | 2024-09-17 15:25 | XMS_ITS | Encounter Summary ---
Author Organization [facility] Address [address] [place] [address] Care Team Providers Care Cottage Parent Name Role Phone Remedios Mehta MD Primary Care Provider + -[phone] Encounter Details Date Type Department Care Team (Latest Contact Info) Description 08/09/2010 12:50 EDT - 08/09/2010 23:59 EDT Hospital Encounter [address] [place] [address] Yonathan Moreland MD Discharge Disposition: Home or [...] Code Departure Means Destination Home or Self Group Home documented in this encounter Progress Notes * Inpatient, Physician - 08/09/2010 0000 EDT documented in this encounter Plan of Treatment Not on file documented as of this encounter Visit Diagnoses Not on filedocumented in this encounter Care Teams Cottage Parent Relationship Specialty Start Date End Date Remedios Mehta MD [address] [place] [phone] PCP - General 02/19/09 01/04/15 documented as of this encounter
--- OUTSIDE RECORDS SUMMARY | 2024-09-17 15:25 | XMS_ITS | Encounter Summary ---
Author Organization [facility] Address [address] [place] [address] Care Team Providers Care Dairy Husbandry Teacher Name Role Phone Remedios Mehta MD Primary Care Provider +1 -[phone] Encounter Details Date Type Department Care Team (Late st Contact Info) Description 06/25/2010 Results Only [facility] Family Medicine [address] [address] Remedios Mehta MD [address] [place] [phone] Social History Tobacco Use Types Packs/Day [...] on filedocumented in this encounter Care Teams Dairy Husbandry Teacher Relationship Specialty Start Date End Date Remedios Mehta MD [address] [place] [phone] PCP - General 02/19/09 01/04/15 documented as of this encounter
--- OUTSIDE RECORDS SUMMARY | 2024-09-17 15:25 | XMS_ITS | Encounter Summary ---
Author Organization [facility] Address [address] [place] [address] Care Team Providers Care Oil Dispenser Name Role Phone Remedios Mehta MD Primary Care Provider +1 -[phone] Reason for Visit * Reason Onset Date Comments Other 11/16/2010 dr. Johansen appt Encounter Details Date Type Department Care Team (Late st Contact Info) Description 11/16/[address] [address] Remedios Mehta MD [address] [place] [phone] Other (dr. Johansen appt) Social History [...] on filedocumented in this encounter Care Teams Oil Dispenser Relationship Specialty Start Date End Date Remedios Mehta MD [address] [place] [phone] PCP - General 02/19/09 01/04/15 documented as of this encounter
--- OUTSIDE RECORDS SUMMARY | 2024-09-17 15:25 | XMS_ITS | Encounter Summary ---
Author Organization [facility] Address [address] [place] [address] Care Team Providers Care Packaging Machine Operator Name Role Phone Remedios Mehta MD Primary Care Provider +1 [phone] Reason for Visit * Reason Onset Date Comments Anticoagulation 07/30/2010 Encounter Details Date Type Department Care Team (Late st Contact Info) Description 07/30/[address] [address] Argelia Farias RN Anticoagulation Social [...] Filled Start Date End Date enoxaparin (LOVENOX) 30 mg/0.3 mL injection Inject [...] on filedocumented in this encounter Care Teams Packaging Machine Operator Relationship Specialty Start Date End Date Remedios Mehta MD [address] [place] [phone] PCP - General 02/19/09 01/04/15 documented as of this encounter
--- OUTSIDE RECORDS SUMMARY | 2024-09-17 15:25 | XMS_ITS | Encounter Summary ---
Author Organization [facility] Address [address] [place] [address] Care Team Providers Care Manager Credit Risk Name Role Phone Remedios Mehta MD Primary Care Provider +1 [phone] Reason for Visit * Reason Onset Date Comments Medications Refill 07/13/2010 Encounter Details Date Type Department Care Team (Late st Contact Info) Description 07/13/2010 Refill [facility] Total Joint Program - Rebecca [address] [place], [place] [phone] Kim Holman LPN [address] [place] [address] Medications Refill Social History Tobacco Use Types [...] Refills Last Filled Start Date End Date methocarbamol (ROBAXIN) 500 mg tablet Take 1-2 [...] Date End Date Remedios Mehta MD [address] [place] [phone] PCP - General 02/19/09 01/04/15 documented as of this encounter
--- OUTSIDE RECORDS SUMMARY | 2024-09-17 15:25 | XMS_ITS | Encounter Summary ---
Author Organization [facility] Address [address] [place] [address] Care Team Providers Care Punch Out Crew Member Name Role Phone Remedios Mehta MD Primary Care Provider +1 [phone] Reason for Referral * Other Type (Routine) - Closed Specialty Diagnoses / Procedures Referred By Joao proctor Referred To Contact Diagnoses Obesity Osteoarthritis S/P TKR (total knee replacement) Knee pain, right Remedios Mehta MD Phone: tel: fax: Referral ID Status Reason Start Date Expiration Date V isits Requested Visits Authorized [id number] Closed Other 09/27/2010 1 1 Question Answer [...] TKR (total knee replacement) Remedios Mehta MD Phone: tel: fax: Tahir Suarez MD Phone: tel: fax: Referral ID Status Reason Start Date Expiration Date V isits Requested Visits Authorized [id number] Closed Specialty Services Required 09/27/2010 1 1 [...] Info) Description 09/27/2010 11:30 EST Office Visit [address] [address] [place] [address] [place] [phone] S/P TKR (total knee replacement); Osteoarthritis; [...] 09/27/2010 1131 EST documented in this encounter Mental Status * Because of a physical, mental, or emotional condition, do you have serious difficulty concentrating, remembering, or making decisions? (5 years old or older) Answer Entry Date Author Yes 04/15/2010 17:15 TANMAYT Bala Veronica RN documented in this encounter Patient Instructions * Patient Instructions* Remedios Strong MD - 09/27/2010 12:02 EST Images from the original note were not included. [facility] Patient Instructions Starting a Weight Loss [...] about seeing a registered dietitian or an autism specialist. It can be a big challenge [...] healthy changes in your diet. ?? An autism specialist or personal lines advisor can help you develop a safe and [...] Where can you learn more? Go to www.[employer].net/fahc Enter U357 in the search box to learn more about Starting a Weight Loss Plan: After Your Visit. ?? 2005 - 2008 [employer]. Care instructions adapted under license by [facility], Inc . This care instruction is for use with your licensed healthcare professional. If you have questions about a medical condition or this instruction, always ask your healthcare professional. [employer] disclaims any warranty or liability for your use of this information.[facility] Patient Instructions Saline Nasal Washes for Adults: [...] Where can you learn more? Go to www.[employer].net/fahc Enter B784 in the search box to learn more about Saline Nasal Washes for Adults: After Your Visit. ?? 2005 - 2008 [employer]. Care instructions adapted under license by [facility], [facility] . This care instruction is for use with your licensed healthcare professional. If you have questions about a medical condition or this instruction, always ask your healthcare professional. [employer] disclaims any warranty or liability for your use of this information. documented in this encounter Ordered Prescriptions Prescription Sig Dispense Quantity Refills Last Filled Start Date End Date azithromycin (ZITHROMAX) 250 mg tabletIndications: Acute sinusitis Take 1 Tab by mouth. Take 2 tablets (500 mg) on Day 1, followed by 1 tablet (250 mg) once daily on Days 2 through 5. 6 Tab 0 09/27/2010 0 documented in this encounter Progress Notes * [...] insomnia. Pt thinks she'll be able to picker packer the trazadone next week. 3. Flu shot [...] of Dr Remedios Strong. Eboni Escalera MA documented in this encounter Plan of Treatment [...] 09/27/2010 documented in this encounter Care Teams Punch Out Crew Member Relationship Specialty Start Date End Date Janine, Remedios Brook, MD [address] [place] [phone] PCP - General 02/19/09 3 documented as of this encounter
--- OUTSIDE RECORDS SUMMARY | 2024-09-17 15:25 | XMS_ITS | Encounter Summary ---
Author Organization [facility] Address [address] [place] [address] Care Team Providers Care Embalmer/Funeral Director Name Role Phone Remedios Mehta MD Primary Care Provider [phone] [phone] Encounter Details Date Type Department Care Team (Latest Contact Info) Description 08/02/2010 13:43 EDT - 08/02/2010 15:03 EDT Hospital Encounter [facility] Perioperative Services - [address] [address] Yonathan Moreland MD Discharge Disposition: Home or [...] Notes * Nathalia Garcia RN - 08/02/[address] Moreland and Dr Pelaez came and talked to pt and decision made to cxl surgery because pt ate. She will be rescheduled * Nathalia Garcia RN - 08/02/2010 1419 EDT Pt ate eggs,ham and samoan muffin finishing at [address] [...] 08/02/2010 0:00 EDT Physician Inpatient MD ADMISSION ORDERABLES Jessica l Result * ECG REPORT - SCANNED (08/09/2010 23:00 EDT) 08/09/2010 23:0 0 EDT Narrative Procedure Note Inpatient, Physician - 08/02/2010 0:00 EDT Physician Inpatient MD PROCEDURE/MINOR SURGICAL ORDERABLES Final Result documented in this encounter Visit Diagnoses Not on filedocumented in this encounter Active and Recently Administered Medications Orders Medications Ordered That Max ht Not Have Been Administered Count Last Ordered Date First Ordered Date lactated ringers (LR) infusion 1 08/02/2010 Nursing Count Last Ordered Date First Orde red Date INSERT PERIPHERAL IV 1 08/02/2010 documented in this encounter Care Teams Embalmer/Funeral Director Relationship Specialty Start Date End Date Remedios Mehta MD [address] [place] [phone] PCP - General 02/19/09 01/04/15 documented as of this encounter
--- OUTSIDE RECORDS SUMMARY | 2024-09-17 15:25 | XMS_ITS | Encounter Summary ---
Author Organization [facility] Address [address] [place] [address] Care Team Providers Care Quick Sketch Artist Name Role Phone Remedios Mehta MD Primary Care Provider +1 [phone] Reason for Visit * Reason Onset Date Comments Knee Pain 07/12/2010 Encounter Details Date Type Department Care Team (Late st Contact Info) Description 07/12/2010 Orders Only [facility] Total Joint Program - Rebecca [address] [place], [place] [phone] Kim Holman LPN [address] [place] [address] Knee pain, right; Osteoarthritis, knee Social History [...] leg documented in this encounter Care Teams Quick Sketch Artist Relationship Specialty Start Date End Date Remedios Mehta MD [address] [place] [phone] PCP - General 02/19/09 01/04/15 documented as of this encounter
--- OUTSIDE RECORDS SUMMARY | 2024-09-17 15:25 | XMS_ITS | Encounter Summary ---
Author Organization [facility] Address [address] [place] [address] Care Team Providers Care Trash Collector Truck Driver Name Role Phone Remedios Mehta MD Primary Care Provider [phone] [phone] Reason for Referral * Consult, Test and Treat (Routine) - Closed Specialty Diagnoses / Procedures [facility] Referred To Contact Diagnoses Myalgia and myositis Arthropathy Yovana Callejas MD Phone: tel: fax: Referral ID Status Reason Start Date Expiration Date V isits Requested Visits Authorized [id number] Closed Specialty Services Required 12/02/2010 1 1 Question Answer Reason for Request: physical therapy for degenerative arthritis in the lumbar spine. Reason for Visit * Reason Comments Fibromyalgia Pt states she is not feeling well. Has applied for disability. Encounter Details Date Type Department Care Team (Late st Contact Info) Description 12/02/2010 14:00 EST Office Visit [facility] Rheumatology & Immunology - [facility] [address] [place], [place] [address] Yovana Callejas MD [address] [place] [address] [phone] Myalgia and myositis; Arthropathy Social [...] Fibromyalgia ??? confirmed 1979,1983 2 vaginal deliveries Past Surgical History Procedure Date ??? Appendectomy ??? Hernia repair ??? Carpal tunnel release 22 years ago right endoscopic by dr. Hamilton ??? Knee surgery 04/15/2010 Right TKR ([facility]) Family History Problem Relation Age of Onset [...] may reflect changes made after this encounter. duloxetine (CYMBALTA) 20 mg capsule Take 20 mg by mouth 3 times daily. 12/02/2010 12/02/2010 pregabalin (LYRICA) 25 mg capsule Take by mouth. 02/25/2011 fluticasone (FLONASE) 50 mcg/Actuation nasal spray 1 [place] by Nasal route daily. 02/25/2011 pantoprazole (PROTONIX) 40 mg tablet Take 80 mg by mouth daily. 02/25/2011 added in this encounter Care Teams Trash Collector Truck Driver Relationship Specialty Start Date End Date Remedios Mehta MD [address] [place] [phone] PCP - General 02/19/09 01/04/15 documented as of this encounter
--- OUTSIDE RECORDS SUMMARY | 2024-09-17 15:25 | XMS_ITS | Encounter Summary ---
Author Organization [facility] Address [address] [place] [address] Care Team Providers Care Topper Press Operator Automatic Name Role Phone Remedios Mehta MD Primary Care Provider +1 -[phone] Reason for Visit * Reason Comments Arthritis Follow up visit.s/p TKR on right in march 2010 Depression Other cost of medications Encounter Details Date Type Department Care Team (Late st Contact Info) Description 11/08/2010 11:15 EST Office Visit [facility] Family Medicine [address] [address] Remedios Mehta MD [address] [place] [phone] Asthma; Arthritis; Fibromyalgia; Obesity; Depression; Abnormal [...] 11/08/2010 1123 EST documented in this encounter Mental Status * Because of a physical, mental, or emotional condition, do you have serious difficulty concentrating, remembering, or making decisions? (5 years old or older) Answer Entry Date Author Yes 04/15/2010 17:15 EDT Bala Veronica RN documented in this encounter Ordered Prescriptions Prescription Sig Dispense Quantity Refills Last Filled Start Date End Date citalopram (CELEXA) 20 mg tabletIndications:D epression Take 1 Tab by [...] in 1 month (discussed Rx plan at [facility] - pt will get this prescription there [...] EST Remedios Mehta MD POINT OF CARE TEST ORDERA BLES Final Result POINT OF CARE documented in this encounter [...] documented as of this encounter Care Teams Topper Press Operator Automatic Relationship Specialty Start Date End Date Remedios Mehta MD [address] [place] [phone] PCP - General 02/19/09 01/04/15 documented as of this encounter
--- OUTSIDE RECORDS SUMMARY | 2024-09-17 15:25 | XMS_ITS | Encounter Summary ---
Author Organization [facility] Address [address] [place] [address] Care Team Providers Care Client Consultant Name Role Phone Remedios Mehta MD Primary Care Provider [phone] Reason for Visit * Reason Comments Knee Pain s/p right total knee replacement 617. Encounter Details Date Type Department Care Team (Late st Contact Info) Description 07/28/2010 15:40 EDT Office Visit [facility] Total Joint Program - [address] [place], [place] [phone] Yonathan Moreland MD Stiffness of knee joint; [...] reconciliation completed. Complications Since Last Visit? None [facility] complication sheet completed OBJECTIVE: Afebrile, alert and [...] patient's level of understanding was verified utilizing [id number] techniques. Greater than50% of today's encounter (25 [...] & BLOOD GAS ORDERABLES Final Result [facility] [address] [place] [address] * SED. RATE:WESTERGREN (07/30/2010 10:06 EDT) Sed. Rate Westergren 14 0 - 20 mm/hr [facility] Comment: Note: Sample greater than 4 hrs old (but less than 12 hrs) when tested. If refrigerated, sample is stable when tested within 12 hours of collection. Blood specimen (specimen) 07/30/2010 10:06 EDT 07/30/2010 18:09 EDT us Yonathan Moreland MD HEMATOLOGY & PF4 ORDER ONELIA Final Result Performing Organization Address City/[facility]/ZIP Co de Phone Number [facility] [address] [place] [address] * (ABNORMAL) HEMAGRAM (07/30/2010 10:06 EDT) WBC [...] ORDER ONELIA Final Result Performing Organization Address [facility] de Phone Number [facility] [address] [place] [address] documented in this encounter Visit Diagnoses Diagnosis Stiffness of knee joint Stiffness of joint, not elsewhere classified, lower leg Knee joint replacement by other means documented in this encounter Care Teams Client Consultant Relationship Specialty Start Date End Date Remedios Mehta MD [address] [place] [phone] PCP - General 02/19/09 01/04/15 documented as of this encounter
--- OUTSIDE RECORDS SUMMARY | 2024-09-17 15:25 | XMS_ITS | Encounter Summary ---
Author Organization [facility] Address [address] [place] [address] Care Team Providers Care Hvac Operations Technician Name Role Phone Remedios Mehta MD Primary Care Provider +1 [phone] Encounter Details Date Type Department Care Team (Latest Contact Info) Description 07/27/2010 13:42 EDT - 07/27/2010 23:59 EDT Hospital Encounter [facility] Hematology & Oncology - [facility] [address] [place] [address] Joey Preciado [address] [place] [address] Discharge Disposition: Auto Discharge Social History Tobacco [...] this encounter Progress Notes * Joey Preciado, POSTAL CARRIER - 07/27/2010 1152 EDT DIVISION OF HEMATOLOGY [...] 110, factor V Leiden negative, prothrombin gene [id number] negative, PTT 32. Protein S 118, b. Repeat ultrasound on 05/12/2010, no evidence of deep or superficial venous thrombosis in the right lower extremity. 2. Obesity. 3. Fibromyalgia. 4. Asthma. 5. Depression. 6. Anxiety. 7. GERD. 8. Irritable bowel syndrome. PAST SURGICAL HISTORY: 1. Appendectomy age 14. 2. [place] tooth extraction age 29. 3. Carpal tunnel [...] b.i.d. as recommended by CHEST guidelines. Ms Husain is returning back to her baseline ambulatory [...] to her satisfaction. 3. Health maintenance. Ms Husain has a significant amount of anxiety. She was encouraged to seek counseling as needed. 4. Followup. Ms Husain will turn on a p.r.n. basis. She was encouraged to call this office at any time with questions or concerns. Electronically Signed by Joey Preciado APRN 08/18/2010 10:53 Dictated by: Joey Preciado APRN - Joey Preciado APRN A - JJeff Job ID: SM Doc ID: [id number] Ext Doc ID: [id number] cc: MD Yonathan El MD Christine H Jones, MD Anya S Koutras, MD * Inpatient, Physician - 07/27/2010 0000 EDT documented in this encounter Plan of Treatment Not on file documented as of this encounter Visit Diagnoses Not on filedocumented in this encounter Care Teams Hvac Operations Technician Relationship Specialty Start Date End Date Remedios Mehta MD [address] [place] [phone] PCP - General 02/19/09 01/04/15 documented as of this encounter
--- OUTSIDE RECORDS SUMMARY | 2024-09-17 15:25 | XMS_ITS | Encounter Summary ---
Author Organization [facility] Address [address] [place] [address] Care Team Providers Care Pmo Analyst Name Role Phone Remedios Mehta MD Primary Care Provider [phone] Encounter Details Date Type Department Care Team (Late st Contact Info) Description 06/23/2010 Orders Only [facility] Total Joint Program - Rebecca [address] [place] [address] Conchita Garza NP [address] [place], [place] [phone] Osteoarthritis, knee; Knee arthroplasty; Cyst of both [...] interpretation and agree with the findings. us Conchita Garza NP IMG US ORDERABLES Final Result documented in this encounter Visit Diagnoses Diagnosis Osteoarthritis, knee Osteoarthrosis, unspecified whether generalized or localized, lower leg Knee arthroplasty Knee joint replacement by other means Cyst of both knee joints Unspecified disorder of lower leg joint documented in this encounter Care Teams Pmo Analyst Relationship Specialty Start Date End Date Remedios Mehta MD [address] [place] [phone] PCP - General 02/19/09 01/04/15 documented as of this encounter
--- OUTSIDE RECORDS SUMMARY | 2024-09-17 15:25 | XMS_ITS | Encounter Summary ---
Author Organization [facility] Address [address] [place] [address] Care Team Providers Care Nurse Practitioner Hospitalist Name Role Phone Remedios Mehta MD Primary Care Provider [phone] Reason for Visit * Reason Comments Fibromyalgia Cyst Back of right leg, s sue knee as surgery Encounter Details Date Type Department Care Team (Late st Contact Info) Description 06/28/2010 14:15 EDT Office Visit [facility] Rheumatology & Immunology - [facility] [address] [place] [address] Yovana Callejas MD [address] [place] [address] [phone] Myalgia and myositis; Arthropathy Social [...] Date End Date trazodone (DESYREL) 100 mg tabletIndications:M yalgia and myositis,Arthropath y Take 1 Tab by mouth at bedtime. [...] documented as of this encounter Care Teams Nurse Practitioner Hospitalist Relationship Specialty Start Date End Date Remedios Mehta MD [address] [place] [phone] PCP - General 02/19/09 01/04/15 documented as of this encounter
--- OUTSIDE RECORDS SUMMARY | 2024-09-17 15:25 | XMS_ITS | Encounter Summary ---
Author Organization [facility] Address [address] [place] [address] Care Team Providers Care Nuclear Fuels Research Engineer Name Role Phone Remedios Mehta MD Primary Care Provider + -[phone] Encounter Details Date Type Department Care Team (Late st Contact Info) Description 07/29/2010 Orders Only [facility] Total Joint Program - [address] [place], [place] [phone] Kim Holman LPN [address] [place] [address] Stiffness of knee joint; Osteoarthritis of right [...] 07/29/2010 documented in this encounter Care Teams Nuclear Fuels Research Engineer Relationship Specialty Start Date End Date Remedios Mehta MD [address] [place] [phone] PCP - General 02/19/09 01/04/15 documented as of this encounter
--- OUTSIDE RECORDS SUMMARY | 2024-09-17 15:25 | XMS_ITS | Encounter Summary ---
Author Organization [facility] Address [address] [place] [address] Care Team Providers Care Property Preservation Specialist Name Role Phone Remedios Mehta MD Primary Care Provider + -[phone] Reason for Visit * Reason Onset Date Comments Medications Refill 07/28/2010 Encounter Details Date Type Department Care Team (Late st Contact Info) Description 07/28/2010 Refill [facility] Total Joint Program - [address] [place], [place] [phone] Kim Holman LPN [address] [place] [address] Medications Refill Social History Tobacco Use Types [...] on filedocumented in this encounter Care Teams Property Preservation Specialist Relationship Specialty Start Date End Date Remedios Mehta MD [address] [place] [phone] PCP - General 02/19/09 01/04/15 documented as of this encounter
--- OUTSIDE RECORDS SUMMARY | 2024-09-17 15:25 | XMS_ITS | Encounter Summary ---
Author Organization [facility] Address [address] [place] [address] Care Team Providers Care Bootmaker Name Role Phone Remedios Mehta MD Primary Care Provider + -[phone] Reason for Visit * Reason Onset Date Comments Appointment Related 08/16/2010 Encounter Details Date Type Department Care Team (Late st Contact Info) Description 08/16/2010 Telephone [facility] Rehabilitation Therapy - [facility] [address] [place] [address] Apolinar William, PT [address] [facility] [address] [place] [phone] Appointment Related Social History Tobacco Use [...] at this time and is working with PFS. Not willing to take a chance on having to pay. Hopes to make next appointment on Monday. documented in this encounter Plan of Treatment Not on file documented as of this encounter Visit Diagnoses Not on filedocumented in this encounter Care Teams Bootmaker Relationship Specialty Start Date End Date Remedios Mehta MD [address] [place] [phone] PCP - General 02/19/09 01/04/15 documented as of this encounter
--- OUTSIDE RECORDS SUMMARY | 2024-09-17 15:25 | XMS_ITS | Encounter Summary ---
Author Organization [facility] Address [address] [place] [address] Care Team Providers Care Cyber Security Systems Engineer Name Role Phone Remedios Mehta MD Primary Care Provider [phone] None, Provider Primary Care Provider German PabonC Primary Care Provider [phone] Elly Ling NP Primary Care Provider [phone] Encounter Details Date Type Department Care Team (Late st Contact Info) Description 10/15/2010 Documentation Visit [address] [address] Kathy Salcedo, PT Social History Tobacco Use [...] documented as of this encounter Care Teams Cyber Security Systems Engineer Relationship Specialty Start Date End Date Remedios Mehta MD [address] [place] [phone] PCP - General 02/19/09 01/04/15 None, Provider PCP - General 01/05/15 09/23/18 German Garzon PA-C [address] [place] [address] PCP - General 09/28/18 05/29/22 Elly Ling NP [address] [place] [address] PCP - General Family Medicine - Primary Care 05/30/22 documented as of this encounter
--- OUTSIDE RECORDS SUMMARY | 2024-09-17 15:25 | XMS_ITS | Encounter Summary ---
Author Organization [facility] Address [address] [place] [address] Care Team Providers Care Dredge Hand Name Role Phone Remedios Mehta MD Primary Care Provider [phone] Reason for Visit * Reason Comments Knee Pain right knee pain - ba ker's cyst removal 06.28.10 Encounter Details Date Type Department Care Team (Late st Contact Info) Description 06/30/2010 9:00 EDT Office Visit [facility] Total Joint Program - [address] [place], [place] [phone] Yonathan Moreland MD OA (osteoarthritis) of knee; [...] Yonathan Moreland MD - CLARISA Job ID: SM Doc ID: [id number] Ext Doc ID: [id number] cc: Remedios Strong MD * Yonathan Moreland MD - 07/01/2010 0855 EDT [facility] encounter [...] means documented in this encounter Care Teams Dredge Hand Relationship Specialty Start Date End Date Remedios Mehta MD [address] [place] [phone] PCP - General 02/19/09 01/04/15 documented as of this encounter
--- OUTSIDE RECORDS SUMMARY | 2024-09-17 15:25 | XMS_ITS | Encounter Summary ---
Author Organization [facility] Address [address] [place] [address] Care Team Providers Care Process Operator Name Role Phone Remedios Mehta MD Primary Care Provider + [phone] Reason for Visit * Reason Comments Knee Pain s/p rigt total knee arthroplasty manipulation 08.05.10 Encounter Details Date Type Department Care Team (Late st Contact Info) Description 08/16/2010 11:20 EDT Office Visit [facility] Total Joint Program - [address] [place], [place] [phone] Yonathan Moreland MD Osteoarth NOS-l/leg (Primary Dx) [...] Moreland MD - Yonathan Moreland MD - RENY Job ID: SM Doc ID: [id number] Ext Doc ID: [id number] cc: * Yonathan Moreland MD - 08/16/2010 [...] documented as of this encounter Care Teams Process Operator Relationship Specialty Start Date End Date Remedios Mehta MD [address] [place] [phone] PCP - General 02/19/09 01/04/15 documented as of this encounter
--- OUTSIDE RECORDS SUMMARY | 2024-09-17 15:25 | XMS_ITS | Encounter Summary ---
Author Organization [facility] Address [address] [place] [address] Care Team Providers Care Software Applications Architect Name Role Phone Remedios Mehta MD Primary Care Provider [phone] Reason for Referral * Consult, Test and Treat (Routine) - Closed Specialty Diagnoses / Procedures Referred By Joao proctor Referred To Contact Rehab Therapies Diagnoses Osteoarthritis of right knee Stiffness of knee joint Kim Holman LPN [address] [place] [address] Rehabilitation Therapy - [address] [address] Phone: tel: fax: Referral ID Status Reason Start Date Expiration Date V isits Requested Visits Authorized [id number] Closed Specialty Services Required 07/29/2010 1 1 Question Answer Reason for Request: right knee stiffness Encounter Details Date Type Department Care Team (Late st Contact Info) Description 07/29/2010 Orders Only [facility] [place] [address] Kim Holman LPN [address] [place] [address] Osteoarthritis of right knee; Stiffness of knee [...] leg documented in this encounter Care Teams Software Applications Architect Relationship Specialty Start Date End Date Remedios Mehta MD [address] [place] [phone] PCP - General 02/19/09 01/04/15 documented as of this encounter
--- OUTSIDE RECORDS SUMMARY | 2024-09-17 15:25 | XMS_ITS | Encounter Summary ---
Author Organization [facility] Address [address] [place] [address] Care Team Providers Care School Supervisor Name Role Phone Remedios Mehta MD Primary Care Provider [phone] Reason for Visit * Reason Comments Knee Pain s/p right total knee replacment 6.17.10 Encounter Details Date Type Department Care Team (Late st Contact Info) Description 12/10/2010 9:20 EST Office Visit [facility] Total Joint Program - [address] [place], [place] [phone] Yonathan Moreland MD Fibromyalgia; OA (osteoarthritis) of [...] knee replacement 8 months ago here at [facility]. Overall she is doing reasonably well limited [...] fluticasone (FLONASE) 50 mcg/Actuation nasal spray 1 [place] by Nasal route daily. ??? pregabalin (LYRICA) [...] leg documented in this encounter Care Teams School Supervisor Relationship Specialty Start Date End Date Remedios Mehta MD [address] [place] [phone] PCP - General 02/19/09 01/04/15 documented as of this encounter
--- OUTSIDE RECORDS SUMMARY | 2024-09-17 15:25 | XMS_ITS | Encounter Summary ---
Author Organization [facility] Address [address] [place] [address] Care Team Providers Care Business Consultant Name Role Phone Remedios Mehta MD Primary Care Provider [phone] Reason for Visit * Reason Onset Date Comments Other 08/23/2010 Pt states havin g problems didn't give anymore info Encounter Details Date Type Department Care Team (Late st Contact Info) Description 08/23/2010 Telephone [facility] Rheumatology & Immunology - [facility] [address] [place] [address] Yovana Callejas MD [address] [place] [address] [phone] Other (Pt states having problems [...] filedocumented in this encounter Care Teams Business Consultant Relationship Specialty Start Date End Date Remedios Mehta MD [address] [place] [phone] PCP - General 02/19/09 01/04/15 documented as of this encounter
--- OUTSIDE RECORDS SUMMARY | 2024-09-17 15:25 | XMS_ITS | Encounter Summary ---
Author Organization [facility] Address [address] [place] [address] Care Team Providers Care Desulfurizer Machine Name Role Phone Remedios Mehta MD Primary Care Provider [phone] Encounter Details Date Type Department Care Team (Late st Contact Info) Description 07/22/2010 Abstract Used for ABSTRACTING Data [phone] Remedios Mehta MD [address] [place] [phone] Social History Tobacco Use Types Packs/Day [...] on filedocumented in this encounter Care Teams Desulfurizer Machine Relationship Specialty Start Date End Date Remedios Mehta MD [address] [place] [phone] PCP - General 02/19/09 01/04/15 documented as of this encounter
--- OUTSIDE RECORDS SUMMARY | 2024-09-17 15:25 | XMS_ITS | Encounter Summary ---
Author Organization [facility] Address [address] [place] [address] Care Team Providers Care Material Movers Name Role Phone Remedios Mehta MD Primary Care Provider + [phone] Reason for Visit * Reason Onset Date Comments Medications Refill 07/09/2010 Encounter Details Date Type Department Care Team (Late st Contact Info) Description 07/09/2010 Refill [facility] Rheumatology & Immunology - [facility] [address] [place] [address] Shanna Gustafson RN Medications Refill Social History [...] on filedocumented in this encounter Care Teams Material Movers Relationship Specialty Start Date End Date Remedios Mehta MD [address] [place] [phone] PCP - General 02/19/09 01/04/15 documented as of this encounter
--- OUTSIDE RECORDS SUMMARY | 2024-09-17 15:26 | XMS_ITS | Encounter Summary ---
Author Organization [facility] Address [address] [place] [address] Care Team Providers Care Disc Jockey Name Role Phone Remedios Mehta MD Primary Care Provider [phone] Encounter Details Date Type Department Care Team (Latest Contact Info) Description 03/25/2010 12:54 EDT - 03/25/2010 14:30 EDT Hospital Encounter [facility] Cancer Center Hematology & Oncology - [facility] [address] [place], [place] [phone] Joey Preciado [address] [place] [address] Discharge Disposition: Auto Discharge Social History Tobacco [...] every 12 hours. 60 Syringe 0 04/20/2010 0 fluticasone-salm eterol (ADVAIR DISKUS) 500-50 mcg/Dose diskus inhaler Inhale 1 Puff as directed 2 times daily. 1 Each 5 02/03/2010 1 FOSINOPRIL SODIUM (MONOPRIL ORAL) Take 20 mg by mouth 2 times daily. Pt not sure of dose 06/22/2010 1 hydroxychloroqui ne (PLAQUENIL) 200 mg tabletIndication [...] 2 methocarbamol (ROBAXIN) 500 mg tablet Take 1 Tab by mouth every 6 hours as needed. muscle spasms 60 Tab 0 04/20/2010 0 metoprolol (LOPRESSOR) 25 mg tabletIndication s:Hypertension Take 1 Tab by mouth 2 times daily. 180 Tab 4 03/10/2010 1 omeprazole (PRILOSEC) 20 mg capsule Take 1 Cap by mouth 2 times daily. dose increase 60 Cap 3 02/03/2010 1 oxycodone (ROXICODONE) 5 mg immediate release tablet Take 1-3 Tabs by mouth every 3 hours as needed for Pain. 80 Tab 0 04/20/2010 0 oxycodone (ROXICODONE) 5 mg immediate release tablet Take 5 mg by mouth every 4 hours as needed for Pain. 0 PEG 3350-Electrolyte s (MIRALAX) 17 gram packet Take 17 g by mouth as needed. 09/27/2010 0 pregabalin (LYRICA) 25 mg capsuleIndicatio ns:Fibromyalgia, Osteoarthritis,O besity Take 1 Cap by mouth 3 times daily. 90 Cap 5 03/10/2010 0 senna (SENOKOT) 8.6 mg tablet Take 2 Tabs by mouth daily. 04/20/2010 0 trazodone (DESYREL) 50 mg tablet Take [...] seventh month of . This occurred in [place]. She was treated with aspirin alone. Ms [...] PAST SURGICAL HISTORY: Appendectomy at age 14. [place] tooth extraction at age 29. Carpal tunnel on the right age 33. Carpal tunnel on the left at age 49. OBSTETRIC HISTORY: Number of pregnancies 4. Live births 2. Miscarriage 1 at one month . One elective . Ms Husain took oral contraceptive pills from mid to 1982. 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 Describes her health as good. Exercises by [...] miscarriages, one at 7 months. Tested in [place] for cardiolipin antibodies, these were negative,treated with [...] she is being treated for this in [place] Based on Ms Husain's history of -induced [...] We will see Ms Husain the week 04/05 to review the results of her thrombosis [...] - MFS Job ID: SM Doc ID: [id number] Ext Doc ID: [id number] cc: MD Yonathan El MD Christine H Jones, MD Anya S Koutras, MD documented in this encounter Plan of Treatment Not on file documented as of this encounter Visit Diagnoses Not on filedocumented in this encounter Care Teams Disc Jockey Relationship Specialty Start Date End Date Remedios Mehta MD [address] [place] [phone] PCP - General 02/19/09 01/04/15 documented as of this encounter
--- OUTSIDE RECORDS SUMMARY | 2024-09-17 15:26 | XMS_ITS | Encounter Summary ---
Author Organization [facility] Address [address] [place] [address] Care Team Providers Care Staple Shear Operator Name Role Phone Remedios Mehta MD Primary Care Provider [phone] Reason for Referral * Consult (Routine) - Closed Specialty Diagnoses / Procedures Referred By Joao proctor Referred To Contact Otolaryngology Diagnoses Hearing loss Yvonne Ibarra MD Phone: tel: fax: Abebe Menendez MD Phone: tel: fax: Referral ID Status Reason Start Date Expiration Date V isits Requested Visits Authorized [id number] Closed Specialty Services Required 06/22/2010 1 1 Question Answer Reason for Request: hearing loss and vertigo Reason for Visit * Reason Comments Ear Fullness Encounter Details Date Type Department Care Team (Late st Contact Info) Description 06/22/2010 15:30 EDT Office Visit [facility] Family Medicine [address] [address] Yvonne Ibarra MD [address] [place] [address] Hearing loss (Primary Dx); Vertigo; Vision loss [...] 04/29/2010 1445 EDT documented in this encounter Mental Status * Because of a physical, mental, or emotional condition, do you have serious difficulty concentrating, remembering, or making decisions? (5 years old or older) Answer Entry Date Author Yes 04/15/2010 17:15 EDT Bala Veronica RN documented in this encounter Progress Notes * BelfordYvonne farris - 06/22/2010 1609 EDT Subjective: Patient ID: [...] problem Was worked up with MRI in [place] a few years ago I do not [...] eye documented in this encounter Care Teams Staple Shear Operator Relationship Specialty Start Date End Date Remedios Mehta MD [address] [place] [phone] PCP - General 02/19/09 01/04/15 documented as of this encounter
--- OUTSIDE RECORDS SUMMARY | 2024-09-17 15:26 | XMS_ITS | Encounter Summary ---
Author Organization [facility] Address [address] [place] [address] Care Team Providers Care Water Proofer Name Role Phone Remedios Mehta MD Primary Care Provider [phone] Encounter Details Date Type Department Care Team (Late st Contact Info) Description 06/14/2010 Orders Only [facility] Total Joint Program - [address] [place] [address] Conchita Garza NP [address] [place], [place] [address] Total knee replacement status; Knee pain Social [...] [facility] Comment:Performed at [facility], [place], [place] % Neutrophils 49.3 45.5 - 79.7 [...] PRATIK WHEELER [facility] Blood specimen (specimen) 06/14/2010 10:57 EDT 06/14/2010 10:59 EDT us Conchita Garza NP PACKAGES & DNA PROBE ORDERABLES Final Result [facility] [address] [place] [address] * (ABNORMAL) C-REACTIVE PROTEIN (06/14/2010 10:57 EDT) C-Reactive Protein 1.6(H) <1.0 mg/dl [facility] Blood specimen (specimen) 06/14/2010 10:57 EDT 06/14/2010 10:59 EDT us Conchita Garza ASSISTANT PROFESSOR OF FORESTRY CHEMISTRY & BLOOD GAS ORDERABLES Final Result [facility] [address] [place] [address] documented in this encounter Visit Diagnoses Diagnosis Total knee replacement status Knee joint replacement by other means Knee pain Pain in joint, lower leg documented in this encounter Orders Lab Orders Without Results Count Last Ordered D ate First Ordered Date SED. RATE:WESTERGREN 1 06/14/2010 documented in this encounter Care Teams Water Proofer Relationship Specialty Start Date End Date Remedios Mehta MD [address] [place] [phone] PCP - General 02/19/09 01/04/15 documented as of this encounter
--- OUTSIDE RECORDS SUMMARY | 2024-09-17 15:26 | XMS_ITS | Encounter Summary ---
Author Organization [facility] Address [address] [place] [address] Care Team Providers Care Location Director Name Role Phone Remedios Mehta MD Primary Care Provider [phone] Encounter Details Date Type Department Care Team (Latest Contact Info) Description 06/02/2010 10:02 EDT - 06/02/2010 23:59 EDT Hospital Encounter [facility] Cancer Center Hematology & Oncology - [facility] [address] [place], [place] [address] Joey Preciado [address] [place] [address] Discharge Disposition: Home or Self Care Social [...] HOURS PRN PAIN 40 Tab 0 05/27/2010 0 hydroxychloroqui ne (PLAQUENIL) 200 mg tabletIndication [...] needed. muscle spasms 60 Tab 0 05/18/2010 0 metoprolol (LOPRESSOR) 25 mg tabletIndication s:Hypertension Take 1 Tab by mouth 2 times daily. 180 Tab 4 03/10/2010 1 omeprazole (PRILOSEC) 20 mg capsule Take 1 Cap by mouth 2 times daily. dose increase 60 Cap 3 02/03/2010 1 PEG 3350-Electrolyte s (MIRALAX) 17 gram packet Take 17 g by mouth as needed. 09/27/2010 0 senna (SENOKOT) 8.6 mg tablet Take [...] 110, factor V Leiden negative, prothrombin gene 00165M negative, PTT 32. Protein S 118, b. Repeat ultrasound on 05/12/2010, no evidence of deep or superficial venous thrombosis in the right lower extremity. 2. Obesity. 3. Fibromyalgia. 4. Asthma. 5. Depression. 6. Anxiety. 7. GERD. 8. Irritable bowel syndrome. PAST SURGICAL HISTORY: 1. Appendectomy age 14. 2. [place] tooth extraction age 29. 3. Carpal tunnel [...] felt funny. HISTORY OF PRESENT ILLNESS: Ms. Husian is a pleasant 49-year-old female with a [...] - MLW Job ID: SM Doc ID: [id number] Ext Doc ID: [id number] cc: MD Yonathan El MD Christine H Jones, MD Anya S Koutras, MD documented in this encounter Miscellaneous Notes * Scanned Note-Null - Inpatient, Physician - 06/02/2010 0000 EDT documented in this encounter Plan of Treatment Not on file documented as of this encounter Visit Diagnoses Not on filedocumented in this encounter Care Teams Location Director Relationship Specialty Start Date End Date Remedios Mehta MD [address] [place] [phone] PCP - General 02/19/09 01/04/15 documented as of this encounter
--- OUTSIDE RECORDS SUMMARY | 2024-09-17 15:26 | XMS_ITS | Encounter Summary ---
Author Organization [facility] Address [address] [place] [address] Care Team Providers Care Senior Stock Plan Administrator Name Role Phone Remedios Mehta MD Primary Care Provider [phone] Reason for Visit * Reason Onset Date Comments Advice Only 06/21/2010 Encounter Details Date Type Department Care Team (Late st Contact Info) Description 06/21/[address] [phone] [place], [place] [address] [place], [place] [phone] Advice Only Social History Tobacco Use Types [...] 06/21/2010 1506 EDT PT SAID HAD SEEN GÓMEZ GARZA AND TALKED ABOUT WEIGHT LOSS .. SHE HAS HAD HER KNEE SURGERY AND NOW READY TO KNOW ABOUT WHAT SHE SHOULD DO ABOUT HER WEIGHT LOSS. documented in this encounter Plan of Treatment Not on file documented as of this encounter Visit Diagnoses Not on filedocumented in this encounter Care Teams Senior Stock Plan Administrator Relationship Specialty Start Date End Date Remedios Mehta MD [address] [place] [phone] PCP - General 02/19/09 01/04/15 documented as of this encounter
--- OUTSIDE RECORDS SUMMARY | 2024-09-17 15:26 | XMS_ITS | Encounter Summary ---
Author Organization [facility] Address [address] [place] [address] Care Team Providers Care Adoption Social Worker Name Role Phone Remedios Mehta MD Primary Care Provider [phone] Encounter Details Date Type Department Care Team (Late st Contact Info) Description 06/14/2010 Orders Only [facility] Total Joint Program - [address] [place] [address] Conchita Garza NP [address] [place], [place] [address] OA (osteoarthritis) of knee (Primary Dx) Social [...] leg documented in this encounter Care Teams Adoption Social Worker Relationship Specialty Start Date End Date Remedios Mehta MD [address] [place] [phone] PCP - General 02/19/09 01/04/15 documented as of this encounter
--- OUTSIDE RECORDS SUMMARY | 2024-09-17 15:26 | XMS_ITS | Encounter Summary ---
Author Organization [facility] Address [address] [place] [address] Care Team Providers Care Summer Child Caregiver Name Role Phone Remedios Mehta MD Primary Care Provider [phone] Encounter Details Date Type Department Care Team (Latest Contact Info) Description 05/17/2010 13:38 EDT - 05/17/2010 23:59 EDT Hospital Encounter [facility] - [address] [place] [address] Yonathan Moreland MD Discharge Disposition: Home or [...] HOURS PRN PAIN 40 Tab 0 05/17/2010 0 hydroxychloroqui ne (PLAQUENIL) 200 mg tabletIndication [...] needed. muscle spasms 60 Tab 0 05/07/2010 0 metoprolol (LOPRESSOR) 25 mg tabletIndication s:Hypertension [...] on filedocumented in this encounter Care Teams Summer Child Caregiver Relationship Specialty Start Date End Date Remedios Mehta MD [address] [place] [phone] PCP - General 02/19/09 01/04/15 documented as of this encounter
--- OUTSIDE RECORDS SUMMARY | 2024-09-17 15:26 | XMS_ITS | Encounter Summary ---
Author Organization [facility] Address [address] [place] [address] Care Team Providers Care Head Of Insight Name Role Phone Remedios Mehta MD Primary Care Provider [phone] Reason for Visit * Reason Comments Knee Pain right tka Encounter Details Date Type Department Care Team (Latest Contact Info) Description 04/29/2010 15:00 EDT Office Visit [facility] - [address] [place] [address] Conchita Garza NP [address] [place], [place] [address] Osteoarthritis (Primary Dx) Social History Tobacco Use [...] documented as of this encounter Care Teams Head Of Insight Relationship Specialty Start Date End Date Remedios Mehta MD [address] [place] [phone] PCP - General 02/19/09 01/04/15 documented as of this encounter
--- OUTSIDE RECORDS SUMMARY | 2024-09-17 15:26 | XMS_ITS | Encounter Summary ---
Author Organization [facility] Address [address] [place] [address] Care Team Providers Care Sugar Mill Worker Name Role Phone Remedios Mehta MD Primary Care Provider [phone] Encounter Details Date Type Department Care Team (Latest Contact Info) Description 03/25/2010 14:31 EDT - 03/25/2010 23:59 EDT Hospital Encounter [facility] [address] [place] [address] Joey Preciado [address] [place] [phone] Discharge Disposition: Auto Discharge Social History Tobacco [...] on filedocumented in this encounter Care Teams Sugar Mill Worker Relationship Specialty Start Date End Date Remedios Mehta MD [address] [place] [phone] PCP - General 02/19/09 01/04/15 documented as of this encounter
--- OUTSIDE RECORDS SUMMARY | 2024-09-17 15:26 | XMS_ITS | Encounter Summary ---
Author Organization [facility] Address [address] [place] [address] Care Team Providers Care Pilot Name Role Phone Remedios Mehta MD Primary Care Provider [phone] Reason for Referral * Consult (Routine) - Closed Specialty Diagnoses / Procedures Referred By Joao proctor Referred To Contact Diagnoses Osteoarthritis Franck Rodney MD [address] [place] [address] Phone: tel: fax: Referral ID Status Reason Start Date Expiration Date V isits Requested Visits Authorized [id number] Closed Specialty Services Required 04/20/2010 1 1 Question Answer Reason for Request: wound care and analytical lab analystChcf Referral - Assessment: Wound Care Encounter Details Date Type Department Care Team (Latest Contact Info) Description 04/15/2010 9:43 EDT - 04/20/2010 16:37 EDT Hospital Encounter [facility] Surgery Unit [address] [place] [address] Yonathan Moreland MD Osteoarthritis Discharge Disposition: Home [...] - - Weight 90.7 kg (200 lb) 04/02/2010900 EDT Height 153.7 cm (5' 0.5) 04/02/2010900 EDT Body Mass Index 38.42 04/02/2010900 EDT documented in this encounter Mental Status * Because of a physical, mental, or emotional condition, do you have serious difficulty concentrating, remembering, or making decisions? (5 years old or older) Answer Entry Date Author Yes 04/15/2010 17:15 EDT Bala Veronica RN documented in this encounter Discharge Summaries * Franck Rodney - 04/20/2010 0721 EDT Discharge Summary Chief [...] - - - 95 % - - 04/19/10 2215 115/64 mmHg 36.5 ??C (97.7 ??F) - 86 18 86 % - - 04/19/102047 122/61 mmHg - - 102 - - [...] at Discharge: none cc: MD Remedios Álvarez Cosigned by Yonathan Moreland MD at 04/20/2010 10:32 EDT documented in this encounter Discharge Instructions * Discharge Instructions* Yovana Villa - 04/20/2010 12:51 EDT DIET Resume home diet ACTIVITY Exercises as prescribed by physical therapy No heavy lifting or strenuous activity for 4 weeks No driving until seen by your physician May RIDE in a car as needed Sexual activity - follow information provided pre-operatively SKIN/WOUND CARE [place] are to be removed 10-14 after your surgery. Visiting nurse will do this for you Clean dressing until hudson removed to prevent snagging of hudson on clothing Change dressing daily and call the office if drainage present May leave open to air AFTER hudson out AND if no drainage BATHING/SHOWERING May [...] for Pain. 80 Tab 0 04/20/2010 0 PEG 3350-Electrolyte s (MIRALAX) 17 gram [...] daily. 1 documented as of this encounter Ordered Prescriptions Prescription Sig Dispense Quantity Refills Last Filled Start Date End Date oxycodone (ROXICODONE) 5 [...] by [x] Physical Therapist [x] Physical Therapist Home Health Care Respiratory Therapist [x] Daily [x] Twice a day 5 days/week for 30-45 minute sessions for: [x] Therapeutic exercise [x] Therapeutic activities [x] Gait training [] Neuromuscular re-education [] Wheelchair training [] Self-care/management [x] Discharge planning [] Other: Please refer to the physical therapy notes for specific details on the patient???s functional status and treatment sessions. Patient status as documented by FURNITURE MOVER HELPER at time of last treatment was: Therapeutic [...] time [] Other: Beeper: 258 VIDAL OSBORN, PT 04/20/2010 3:49 PM * Solange Singletary - 04/20/2010 1420 EDT 30 days of lovenox for prophylaxis of dvt in pt with history of dvt and low antithrombin function. Call to [employer] prior auth line @ [phone] with the above information. Dharmesh has authorized oneweeks supply, will review request as a stat request. Will notify information writer of determination in 4 - 24 hrs. Solange Singletary RN/[facility] #[id number]. * Solange Singletary - 04/20/2010 1342 EDT Received call from pharmacist Ethan Gibson, pt script for bid lovenox x 30 days. Ins needs Prior auth,medical reason to authorize more than 7 days of lovenox. I have sent text page to Dr. Rodney to find out medical reason for 4 weeks of lovenox. Awaiting MD response. Solange Singletary RN/CCM #[id number]. * Yovana Villa - 04/20/2010 1251 EDT [...] Therapies Encounter Note Acute Therapies Treatment time/Duration: 849/ SUBJECTIVE: I feel better with the stairs. [...] Primary Therapist: Vidal Osborn Beeper: [phone] Saba Villavicencio PTA 04/20/2010 9:51 AM * Vidal Osborn, PT - 04/19/2010 1045 EDT Physical Therapy Rehabilitation Therapies Encounter Note Acute Therapies Treatment time/Duration: 930-1000 2164-2499 SUBJECTIVE: I have been having trouble with [...] []Sitting 100-127 n/e 89% on finger with faroese 98% ear Post []Supine []Sitting Patient sitting [...] [] Other: Primary Therapist: Beeper: 258 VIDAL OSBORN, PT 04/19/2010 10:45 AM * Franck Rodney [...] Dressing Clean/Dry/Intact---changes, small area of bloody drainage 5/5 GS/TA/EHL/Peroneal muscle groups BLE LTSI DP/SP/SN/TN [...] once passes PT Bowel meds * Keesha Calderon, FURNITURE MOVER HELPER - 04/18/2010 1430 EDT Physical Therapy Rehabilitation Therapies Encounter Note Acute Therapies Treatment time/Duration: 7837-8507 SUBJECTIVE: i think im going home monday [...] with crutches. Anticipate home tomorrow afternoon or Monday with home PT. PLAN/INTERVENTION: Continue per plan [...] [] Other: Primary Therapist: Radha Buckley Beeper: [phone] Keesha Delaney PTA 04/18/2010 2:30 PM * Yonathan Moreland MD - 04/18/2010 0929 EDT ATTENDING POSTOP DAY 3 ROUNDS NOTE: [...] Yonathan Moreland M.D. * Franck Rodney - 04/18/2010 0928 EDT Orthopaedics Recon Admit Date: 04/15/2010 Hospital [...] [] Other: Primary Therapist: Radha Buckley Beeper: [phone] Saba Villavicencio PTA 04/17/2010 12:25 PM * [...] Singletary - 04/16/2010 1600 EDT Solange Singletary Paper Cutting Machine Operator/Tomography Technologist Progress Notes 04/16/2010 1541 Case Management Assessment Working Diagnosis/Presenting Problem: Oa, s/p right total knee replacement. Living Arrangements: Lives alone, multi level condo. All needs available on the first level. 3 stairs to enter. 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 Will have assist 22/05 as needed. Existing Community Resources: arrangements made with [facility] FURNITURE MOVER HELPER. Advanced Directives/DPOA: In place. Cultural/Spiritual Needs: N/a. Insurance/Financial Needs: N/a, [place] Transportation Needs: N/a, erick Corley. Patient Goals: Home with VNA services. Assessment and Discharge Care Plan: Home with VNA. Solange Singletary RN/[facility] #[id number]. * Saba Villavicencio - 04/16/2010 1435 EDT Physical Therapy Rehabilitation [...] [] Other: Primary Therapist: Vidal Osborn Beeper: [phone] Saba Villavicencio PTA 04/16/2010 2:35 PM * [...] Abdomen: Nondistended. Extremities: LTS intact RLE Musculoskeletal: 03/03 TA/GS/EHL. Wound: Dressing c/d/i Lab Data - [...] pending pt eval Hussein Chavez MD Pager [phone] * Vidal Osborn, PT - 04/16/2010 1046 EDT Physical Therapy Rehabilitation Therapies Initial Evaluation Note Acute Therapies SUBJECTIVE: That was hard work. My knee is really throbbing again now OBJECTIVE/EXAMINATION: Patient Profile: Patient is a 50 y.o. female admitted on 04/15/2010 secondary to Right Total Knee Arthroplasty. The patient lives in [place] [address]. 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 Reason for physical therapy: [x] Evaluate [...] Six Minute Walk Test - Score: [] [facility] Level: [] Other: PHYSICAL THERAPY INTERVENTION TODAY: [...] SHORT TERM GOALS TIME FRAME: n/a n/a SENIOR LIVING GOALS TIME FRAME: n/a Patient will be [...] provided by Physical Therapist and/or Physical Therapist Home Health Care Respiratory Therapist when medically appropriate Frequency: 7 days/week, [x] [...] Therapy consult [] Inpatient Rehabilitation consult [] Tomography Technologist consult [] Other: Beeper: 258 VIDAL OSBORN, ENEIDA 04/16/2010 7:55 AM * Nahomi Driscoll - 04/15/2010 4317 EDT Active Multi-Disciplinary problems: FALL RISK [62009] (04/15/10) HEMODYNAMIC STATUS [23455] (04/15/10) OXYGENATION/RESPIRATORY FUNCTION [87082] (04/15/10) ACTIVITY INTOLERANCE/IMPAIRED MOBILITY [75747] (04/15/10) INFECTION [88253] (04/15/10) SAFETY [03457] (04/15/10) ELIMINATION [18179] (04/15/10) PRESSURE ULCER PREVENTION [53265] (04/15/10) Data: pt blood pressure has improved [...] procedure. * Tamara Frazier RN - 04/02/2010 0859 EDT Cherelle Husain has been instructed as [...] Thrombophlebitis PROCEDURE: 1) Right total knee arthroplasty (89601) SURGEON: Yonathan Moreland MD ASSISTANTS: MARIA Ventura [...] high flex XLPE polyethylene insert (lot number [id number]) Tibial tray: size 4 Wing and Nephew [...] 3 degrees of external rotation based on Raleigh's line (AP axis). The tibia was prepared [...] Date Met: 04/20/10 Active Multi-Disciplinary problems: PAIN [23736] (04/16/10) Data: Pt c/o of pain of [...] Care - Saba Pool RN - 04/20/2010 0530 EDT Problem: PAIN Goal: Patient's Pain/Discomfort Is Manageable Intervention: Assess pain level Active Multi-Disciplinary problems: FALL RISK [35320] (04/15/10) HEMODYNAMIC STATUS [73003] (04/15/10) OXYGENATION/RESPIRATORY FUNCTION [90834] (04/15/10) ACTIVITY INTOLERANCE/IMPAIRED MOBILITY [72478] (04/15/10) INFECTION [23311] (04/15/10) SAFETY [71429] (04/15/10) ELIMINATION [93966] (04/15/10) PRESSURE ULCER PREVENTION [45390] (04/15/10) PAIN [30738] (04/16/10) Data: Pt ambulating out in hallway [...] Care - Saba Pool RN - 04/19/2010 0523 EDT Problem: ELIMINATION Goal: Elimination Patterns Are Normal Or Improving Elimination patterns return to pre-surgery normal patterns Outcome: Met this shift. Active Multi-Disciplinary problems: FALL RISK [01465] (04/15/10) HEMODYNAMIC STATUS [85647] (04/15/10) OXYGENATION/RESPIRATORY FUNCTION [00442] (04/15/10) ACTIVITY INTOLERANCE/IMPAIRED MOBILITY [64350] (04/15/10) INFECTION [99177] (04/15/10) SAFETY [91091] (04/15/10) ELIMINATION [89913] (04/15/10) PRESSURE ULCER PREVENTION [12760] (04/15/10) PAIN [91040] (04/16/10) Data: Pt has not had a bowel movement in 4 days. Positive bowel sounds, passing flatus. Action: Milk of mag and suppository given. Pt up ambulating independently with walker. Response: Still monitoring. Physician wrote new order to start QD miralax. 0530- Positive BM. Saba Pool RN 04/19/2010 5:20 AM * Plan of Care - Yovana Villa - 04/17/2010 4357 EDT Problem: OXYGENATION/RESPIRATORY FUNCTION Goal: Patient Will Achieve/Maintain Normal Respiratory Rate/Effort Outcome: Ongoing Active Multi-Disciplinary problems: FALL RISK [00937] (04/15/10) HEMODYNAMIC STATUS [32079] (04/15/10) OXYGENATION/RESPIRATORY FUNCTION [53499] (04/15/10) ACTIVITY INTOLERANCE/IMPAIRED MOBILITY [86950] (04/15/10) INFECTION [89243] (04/15/10) SAFETY [90771] (04/15/10) ELIMINATION [06701] (04/15/10) PRESSURE ULCER PREVENTION [90635] (04/15/10) PAIN [95918] (04/16/10) Data: Pt with increased wheezing this [...] up and gave ptalbuterol neb treatment. Resident montessori lead teacher (Dr. Pacehco) was also paged and came up to evaluate pt. Response: Pt less wheezy after neb treatment, but still remains with insp and exp wheezing, pt on 2L/NC O2, pulse ox 93-94%. Awaiting new orders from MD. Will continue to closely monitor. YOVANA VILLA RN 04/17/2010 10:00 PM * Plan of Care - Yovana Villa - 04/16/2010 2211 EDT Problem: OXYGENATION/RESPIRATORY FUNCTION Goal: Patient Will Achieve/Maintain Normal Respiratory Rate/Effort Outcome: Met This Shift Active Multi-Disciplinary problems: FALL RISK [84966] (04/15/10) HEMODYNAMIC STATUS [15432] (04/15/10) OXYGENATION/RESPIRATORY FUNCTION [98446] (04/15/10) ACTIVITY INTOLERANCE/IMPAIRED MOBILITY [94338] (04/15/10) INFECTION [92397] (04/15/10) SAFETY [81977] (04/15/10) ELIMINATION [04396] (04/15/10) PRESSURE ULCER PREVENTION [38511] (04/15/10) PAIN [22855] (04/16/10) Data: Around HS med administration, pt [...] 0336 EDT Active Multi-Disciplinary problems: FALL RISK [77883] (04/15/10) HEMODYNAMIC STATUS [09211] (04/15/10) OXYGENATION/RESPIRATORY FUNCTION [57903] (04/15/10) ACTIVITY INTOLERANCE/IMPAIRED MOBILITY [93919] (04/15/10) INFECTION [96214] (04/15/10) SAFETY [26298] (04/15/10) ELIMINATION [85895] (04/15/10) PRESSURE ULCER PREVENTION [57131] (04/15/10) PAIN [65226] (04/16/10) Data: Pt blood pressure 83/43, pt [...] pain level Active Multi-Disciplinary problems: FALL RISK [86552] (04/15/10) HEMODYNAMIC STATUS [06746] (04/15/10) OXYGENATION/RESPIRATORY FUNCTION [04351] (04/15/10) ACTIVITY INTOLERANCE/IMPAIRED MOBILITY [54845] (04/15/10) INFECTION [83282] (04/15/10) SAFETY [91987] (04/15/10) ELIMINATION [70587] (04/15/10) PRESSURE ULCER PREVENTION [65419] (04/15/10) PAIN [97891] (04/16/10) Data: Pt awake resting in bed, c/o pain 04/08, states her calf is cramping a lot, neg homans Action: repositioned, med with oxycodone 5mg, ice to RLE Response: pt sleeping no s/s of distress Tiffanie Nguyen RN 04/16/2010 2:23 AM * Plan of Care - Karlie Veronica RN - 04/15/2010 8298 EDT Problem: HEMODYNAMIC STATUS Goal: Patient Has [...] * Scanned Note-Null - Inpatient, Physician - 04/15/2010 0946 EDT * Scanned Note-Null - Inpatient, Physician [...] Note Inpatient, Physician - 04/25/2010 7:20 EDT us Physician Inpatient MD PROCEDURE/MINOR SURGICAL ORDERABLES Final Result * ECG REPORT - SCANNED (04/23/2010 8:25 EDT) 04/23/2010 8:25 EDT Narrative Procedure Note Inpatient, Physician - 04/23/2010 8:25 EDT us Physician Inpatient MD PROCEDURE/MINOR SURGICAL ORDERABLES Final Result * ORDERS - SCANNED (04/23/2010 8:25 EDT) 04/23/2010 8:25 EDT Narrative Procedure Note Inpatient, Physician - 04/23/2010 8:25 EDT Physician Inpatient MD ADMISSION ORDERABLES Jessica l Result * ORDERS - SCANNED (04/23/2010 8:25 EDT) 04/23/2010 8:25 EDT Narrative Procedure Note Inpatient, Physician - 04/23/2010 8:25 EDT Physician Inpatient MD ADMISSION ORDERABLES Jessica l Result * (ABNORMAL) HEMAGRAM (04/20/2010 5:56 EDT) Pathologist [facility] WBC 7.45 4.0 - 12.4 K/cmm CANALES [...] EDT Nel Ryder PA-C HEMATOLOGY & PF4 ORDERABLES Fi nal Result Performing Organization Address [facility] Co de Phone Number [facility] [address] [place] [address] * (ABNORMAL) HEMAGRAM (04/19/2010 6:41 EDT) WBC [...] EDT Nel Ryder PA-C HEMATOLOGY & PF4 ORDERABLES Fi nal Result Performing Organization Address [facility] de Phone Number [facility] [address] [place] [address] * RAD US DOPPLER LOWER EXTREMITY VENOUS [...] waveforms and normal changeability with augmentation. The basting puller was unable to compress this vessel but [...] waveforms and normal changeability with augmentation. The basting puller was unable to compress this vessel but [...] agree with the findings. Franck Rodney MD IMG US ORDERABLES Final Res ult * (ABNORMAL) HEMAGRAM (04/18/2010 8:07 EDT) WBC 8.43 4.0 - 12.4 K/cmm [facility] RBC 2.98(L) 3.86 - 5.04 M/cmm [facility] Hemoglobin 9.2(L) 11.6 - 15.2 gm/dl [facility] HCT 26.5(L) 34.9 - 44.4 % [facility] MCV 89 81 - 98 fl [facility] MCH 30.8 26.7 - 33.3 pg [facility] MCHC 34.7 32.1 - 35.9 gm/dl [facility] PLT 239 141 - 320 K/cmm [facility] RDW-CV 13.2 11.7 - 14.6 % [facility] Blood specimen (specimen) 04/18/2010 8:07 EDT 04/18/2010 8:46 EDT Nel Rdyer PA-C HEMATOLOGY & PF4 ORDERABLES Fi nal Result Performing Organization Address [facility] Co de Phone Number [facility] [address] [place] [address] * (ABNORMAL) GLUCOSE, SERUM (04/18/2010 8:07 EDT) Glucose, Serum 129(H) 70 - 100 mg/dl [facility] Blood specimen (specimen) 04/18/2010 8:07 EDT 04/18/2010 8:46 EDT Nel Ryder PA-C CHEMISTRY & BLOOD GAS ORDERABL ES Final Result Performing Organization Address [facility] Co de Phone Number [facility] [address] [place] [address] * CREATININE (04/18/2010 8:07 EDT) Pathologist [facility] Creatinine 0.75 0.7 - 1.5 mg/dl [facility] GFR, Calculated >60 ml/min/1.7 3m2 [facility] Blood specimen (specimen) 04/18/2010 8:07 EDT 04/18/2010 8:46 EDT Nel Ryder PA-C CHEMISTRY & BLOOD GAS ORDERABL ES Final Result Performing Organization Address [facility] de Phone Number [facility] [address] [place] [address] * (ABNORMAL) BUN (04/18/2010 8:07 EDT) Pathologist [facility] BUN 9(L) 10 - 26 mg/dl [facility] Blood specimen (specimen) 04/18/2010 8:07 EDT 04/18/2010 8:46 EDT Nel Ryder PA-C CHEMISTRY & BLOOD GAS ORDERABL ES Final Result Performing Organization Address [facility] de Phone Number [facility] [address] [place] [address] * (ABNORMAL) ELECTROLYTES (04/18/2010 8:07 EDT) Pathologist [facility] Sodium 132(L) 136 - 145 mEq/L [facility] Potassium 4.2 3.5 - 5.0 mEq/L [facility] Chloride 93(L) 96 - 110 mEq/L [facility] CO2 31 24 - 32 mEq/L [facility] Blood specimen (specimen) 04/18/2010 8:07 EDT 04/18/2010 8:46 EDT Nel Ryder PA-C CHEMISTRY & BLOOD GAS ORDERABL ES Final Result Performing Organization Address [facility] de Phone Number [facility] [address] [place] [address] * (ABNORMAL) HEMAGRAM (04/17/2010 7:38 EDT) Pathologist [facility] WBC 10.18 4.0 - 12.4 K/cmm [facility] RBC 3.29(L) 3.86 - 5.04 M/cmm [facility] Hemoglobin 10.2(L) 11.6 - 15.2 gm/dl [facility] HCT 29.5(L) 34.9 - 44.4 % [facility] MCV 90 81 - 98 fl [facility] MCH 30.9 26.7 - 33.3 pg [facility] MCHC 34.5 32.1 - 35.9 gm/dl [facility] PLT 241 141 - 320 K/cmm [facility] RDW-CV 13.2 11.7 - 14.6 % [facility] Blood specimen (specimen) 04/17/2010 7:38 EDT 04/17/2010 8:14 EDT Nel Ryder PA-C HEMATOLOGY & PF4 ORDERABLES Fi nal Result Performing Organization Address [facility] Co de Phone Number [facility] [address] [place] [address] * (ABNORMAL) GLUCOSE, SERUM (04/17/2010 7:38 EDT) [facility] Glucose, Serum 130(H) 70 - 100 mg/dl [facility] Blood specimen (specimen) 04/17/2010 7:38 EDT 04/17/2010 8:14 EDT Nel Ryder PA-C CHEMISTRY & BLOOD GAS ORDERABL ES Final Result Performing Organization Address [facility] de Phone Number [facility] [address] [place] [address] * (ABNORMAL) CREATININE (04/17/2010 7:38 EDT) [facility] Creatinine 0.69(L) 0.7 - 1.5 mg/dl [facility] GFR, Calculated >60 ml/min/1.7 3m2 [facility] Blood specimen (specimen) 04/17/2010 7:38 EDT 04/17/2010 8:14 EDT Nel Ryder PA-C CHEMISTRY & BLOOD GAS ORDERABL ES Final Result Performing Organization Address [facility] de Phone Number [facility] [address] [place] [address] * (ABNORMAL) BUN (04/17/2010 7:38 EDT) BUN 7(L) 10 - 26 mg/dl [facility] Blood specimen (specimen) 04/17/2010 7:38 EDT 04/17/2010 8:14 EDT Nel Ryder PA-C CHEMISTRY & BLOOD GAS ORDERABL ES Final Result Performing Organization Address [facility] Phone Number [facility] [address] [place] [address] * (ABNORMAL) ELECTROLYTES (04/17/2010 7:38 EDT) Sodium 135(L) 136 - 145 mEq/L [facility] Potassium 4.1 3.5 - 5.0 mEq/L [facility] Chloride 98 96 - 110 mEq/L [facility] CO2 27 24 - 32 mEq/L [facility] Blood specimen (specimen) 04/17/2010 7:38 EDT 04/17/2010 8:14 EDT Nel Ryder PA-C CHEMISTRY & BLOOD GAS ORDERABL ES Final Result Performing Organization Address [facility] Phone Number [facility] [address] [place] [address] * PROTIME (04/16/2010 6:53 EDT) Pro Time 12.0 9.9 - 13.1 secs [facility] I.N.R. 1.0 0.9 - 1.1 Ratio [facility] Comment: Moderate Intensity Coumadin INR = 2.0-3.0 Adjustments in anticoagulant therapy dose should be based upon the INR and NOT the Pro Time. Blood specimen (specimen) 04/16/2010 6:53 EDT 04/16/2010 7:18 EDT Nel Ryder PA-C HEMATOLOGY & PF4 ORDERABLES Fi nal Result Performing Organization Address [facility] de Phone Number [facility] [address] [place] [address] * (ABNORMAL) HEMAGRAM (04/16/2010 6:53 EDT) WBC 7.99 4.0 - 12.4 K/cmm [facility] [...] % [facility] Blood specimen (specimen) 04/16/2010 6:53 EDT 04/16/2010 7:18 EDT Nel Ryder PA-C HEMATOLOGY & PF4 ORDERABLES Fi nal Result Performing Organization Address [facility] Co de Phone Number [facility] [address] [place] [address] * (ABNORMAL) CREATININE (04/16/2010 6:53 EDT) Creatinine 0.67(L) 0.7 - 1.5 mg/dl [facility] GFR, Calculated >60 ml/min/1.7 3m2 [facility] Blood specimen (specimen) 04/16/2010 6:53 EDT 04/16/2010 7:18 EDT Nel Ryder PA-C CHEMISTRY & BLOOD GAS ORDERABL ES Final Result Performing Organization Address [facility] Co de Phone Number [facility] [address] [place] [address] * BUN (04/16/2010 6:53 EDT) Pathologist [facility] BUN 12 10 - 26 mg/dl [facility] Blood specimen (specimen) 04/16/2010 6:53 EDT 04/16/2010 7:18 EDT us Nel Ryder PA-C CHEMISTRY & BLOOD GAS ORDERABL ES Final Result Performing Organization Address [facility] de Phone Number [facility] [address] [place] [address] * (ABNORMAL) ELECTROLYTES (04/16/2010 6:53 EDT) [facility] Sodium 135(L) 136 - 145 mEq/L [facility] Potassium 4.3 3.5 - 5.0 mEq/L [facility] Chloride 103 96 - 110 mEq/L [facility] CO2 24 24 - 32 mEq/L [facility] Blood specimen (specimen) 04/16/2010 6:53 EDT 04/16/2010 7:18 EDT us Nel Ryder PA-C CHEMISTRY & BLOOD GAS ORDERABL ES Final Result Performing Organization Address [facility] de Phone Number [facility] [address] [place] [address] * (ABNORMAL) SCREENING GLUCOSE (04/16/2010 6:53 EDT) [facility] Glucose, Screening 167(H) 70 - 100 mg/dl [facility] Blood specimen (specimen) 04/16/2010 6:53 EDT 04/16/2010 7:18 EDT Nel Ryder PA-C CHEMISTRY & BLOOD GAS ORDERABL ES Final Result Performing Organization Address [facility] Co de Phone Number [facility] [address] [place] [address] * KNEE 1 OR 2 VIEWS (04/15/2010 [...] postsurgical changes are seen. Yonathan Moreland MD G DIAGNOSTIC IMAGING ORDERABLES Final Result documented in [...] Starting on Shirley 04/15/10 at 1654, Until Tu04/20/10 at 1839, Pain, Routine, On Unit Given 04/20/2010 14:48 EDT 650 mg Given 04/20/2010 10:39 EDT 650 mg Given 04/20/2010 5:22 EDT 650 mg albuterol (PROVENTIL HFA, VENTOLIN HFA) inhaler 2 Puff 2 Puff, inhalation, 4 TIMES DAILY, First dose on 04/18/10 at 0915, Until Discontinued, Routine Given 04/18/2010 17:00 EDT 2 Puffs Given 04/18/2010 13:14 EDT 2 Puffs albuterol (PROVENTIL HFA, VENTOLIN HFA) inhaler 2 Puff 2 Puff, inhalation, EVERY 6 HOURS PRN, Starting on [place] 04/18/10 at 1313, Until [place] 04/18/10 at 1845, Wheezing, Routine Given 04/18/2010 [...] HOURS, First dose (after last modification) on [place] 04/18/10 at 0600, Until Discontinued, Routine Given 04/18/2010 6:01 EDT 2.5 mg albuterol (PROVENTIL) 2.5 mg /3 mL (0.083 %) nebulizer solution 2.5 mg 2.5 mg, nebulization, EVERY 4 HOURS WHILE AWAKE, First dose (after last modification) on [place] 04/18/10 at 1000, Until Discontinued, Routine Given 04/18/2010 9:00 EDT mg albuterol (PROVENTIL) 2.5 mg /3 mL (0.083 %) nebulizer solution 2.5 mg 2.5 mg, nebulization, 4 TIMES DAILY - 8,12,17,21, First dose on [place] 04/18/10 at 2100, Until Discontinued, Routine Given [...] 04/15/10 at 1654, Until 04/20/10 at 1839, Heartburn, epigastric stress, Routine, On [...] 30 Minutes, PRE-OP ONCE, 1 dose, On Mon04/15/10 at 1030, Routine, Pre-Op DOS Rx Approved Given 04/15/2010 11:05 EDT 900 mg dextrose 5 % and 0.9 % NaCl with KCl 20 mEq/L infusion at 100 mL/hr, intravenous, CONTINUOUS, Starting on Mon04/15/10 at 1715, Until Mon04/16/10 at 1001, Routine [...] First dose (after last modification) on [place] 04/15/10 at 2100, Until Discontinued, [...] First dose (after last modification) on [place] 04/15/10 at 2100, Until Discontinued, [...] Starting on [place] 04/15/10 at 1725, Until Mon04/19/10 at 0903, Pain, Routine Given 04/17/2010 0:24 EDT 0.3 mg Given 04/16/2010 9:45 EDT 0.4 mg Given 04/16/2010 5:32 EDT 0.4 mg hydroxychloroquine (PLAQUENIL) tablet 200 mg 200 mg, oral, 2 TIMES DAILY, 6 doses, First dose on [place] 04/15/10 at 2100, Last dose on Mon04/18/10 at 0900, Routine Given 04/18/2010 8:38 EDT [...] PRN, Starting on 04/19/10 at 0901, Until Tu04/20/10 at 1839, muscle spasms, Routine, On Unit Given 04/20/2010 14:48 EDT 500 mg Given 04/20/2010 8:40 EDT 500 mg Given 04/19/2010 13:30 EDT 500 mg methocarbamol (ROBAXIN) tablet 500-1,000 mg 500-1,000 mg, oral, EVERY 6 HOURS PRN, Starting on [place] 04/15/10 at 1408, Until 04/19/10 at 0903, muscle spasms, Routine, On Unit Given 04/18/2010 16:40 EDT 1,000 mg Given 04/18/2010 8:36 EDT 1,000 mg Given 04/17/2010 20:45 EDT 1,000 mg metoprolol (LOPRESSOR) tablet 25 mg 25 mg, oral, 2 TIMES DAILY, First dose on Mon04/15/10 at 2100, Until Discontinued, Routine Given 04/20/2010 [...] (Without Time Specified), 1 dose, Starting on [place] 04/15/10 at 1032, Until Mon04/15/10 at 1105, Routine, [...] on Mon04/15/10 at 1730, Until Discontinued, Routine Given 04/20/2010 [...] Mon04/15/10 at 2100, Until Discontinued, Routine Given 04/20/2010 14:47 EDT 2 5 mg Given 04/20/2010 8:36 EDT 25 mg Given 04/19/2010 20:51 EDT 25 mg pregabalin (LYRICA) capsule 75 mg 75 mg, oral, PRE-OP ONCE, 1 dose, On Mon04/15/10 at 1030, Routine, Pre-Op DOS Rx Approved Given 04/15/2010 11:05 EDT 75 mg senna (SENOKOT) tablet 2 Tab 2 Tablet, oral, DAILY, First dose on Mon04/15/10 at 1715, Until Discontinued, Routine, On Unit [...] may reflect changes made after this encounter. senna (SENOKOT) 8.6 mg tablet Take 2 [...] Until Discontinued, Routine 1314 (Given - Provider: éFlix Brooke)1700 (Given - Provider: Ofelia Malone) albuterol [...] per pt) 1017 (Given - Provider: Wale Stearns RT) albuterol (PROVENTIL) 2.5 mg /3 mL (0.083 %) nebulizer solution 2.5 mg (CANCELED) 2.5 mg, nebulization, 4 TIMES DAILY, First dose on Mon04/19/10 at 1415, Until Discontinued, Routine 1727 (Given - Provider: Wale Stearns RT)2004 (Given - Provider: Cata Sales) 0845 [...] at 2100, Until Discontinued, Routine, On Unit 212 (Given - Provider: Saba Pool RN) 2048 [...] RN) 08 (Given - Provider: Lesley Alberts RN)2017 (Given [...] RN - Reason: Order parameters not met) 08 (Given - Provider: Lesley Alberts RN)2052 (Given [...] on Mon04/16/10 at 2100, Until Discontinued, Routine 08 (Given - Provider: Lesley Alberts RN)2124 (Given [...] [place] 04/15/10 at 1730, Until Discontinued, Routine 0838 (Given [...] 04/15/10 at 2100, Until Discontinued, Routine 0838 (Given - Provider: Lesley Alberts RN)1500 (Given - Provider: Lesley Alberts RN)2125 (Given - Provider: Saba Pool RN) 0820 [...] Mon04/20/10 at 1839, Pain, Routine, On Unit 0056 [...] PRN, Starting on 04/17/10 at 2344, Until Tu04/20/10 at 1839, Wheezing, Routine 2306 (Given - [...] Starting on [place] 04/15/10 at 1408, Until 04/19/10 at 0903, muscle spasms, Routine, On Unit 0836 (Given - Provider: Lesley Alberts RN)1640 (Given - Provider: Lesley Alberts RN) 0327 (Canceled Entry - Provider: Saba Pool RN) oxycodone (ROXICODONE) immediate release tablet 5-15 mg 5-15 mg, oral, EVERY 3 HOURS PRN, Starting on Mon04/19/10 at 0902, Until Mon04/20/10 at 1839, Pain, Routine 1200 (Given - [...] 04/15/2010 documented in this encounter Care Teams Pilot Relationship Specialty Start Date End Date Remedios Mehta MD [address] [place] [phone] PCP - General 02/19/09 01/04/15 documented as of this encounter
--- OUTSIDE RECORDS SUMMARY | 2024-09-17 15:26 | XMS_ITS | Encounter Summary ---
Author Organization [facility] Address [address] [place] [address] Care Team Providers Care Hand Inspector Name Role Phone Remedios Mehta MD Primary Care Provider [phone] [phone] Reason for Visit * Reason Onset Date Comments Medications Refill 06/07/2010 Encounter Details Date Type Department Care Team (Late st Contact Info) Description 06/07/2010 Refill [facility] Total Joint Program - [address] [place], [place] [phone] Kim Holman LPN [address] [place] [address] Medications Refill Social History Tobacco Use Types [...] as of this encounter Care Teams Hand Inspector Relationship Specialty Start Date End Date Remedios Mehta MD [address] [place] [phone] PCP - General 02/19/09 01/04/15 documented as of this encounter
--- OUTSIDE RECORDS SUMMARY | 2024-09-17 15:26 | XMS_ITS | Encounter Summary ---
Author Organization [facility] Address [address] [place] [address] Care Team Providers Care Automatic Lathe Operator Name Role Phone Remedios Mehta MD Primary Care Provider + -[phone] Reason for Visit * Reason Comments Knee Pain Encounter Details Date Type Department Care Team (Latest Contact Info) Description 06/14/2010 8:20 EDT [facility] Total Joint Program - [address] [place] [address] Conchita Garza NP [address] [place], [place] [address] Osteoarthritis (Primary Dx) Discharge Disposition: Auto Discharge [...] nophen (LORTAB;VICODIN) 5-500 mg per tablet Take 1-2 [...] documented as of this encounter Care Teams Automatic Lathe Operator Relationship Specialty Start Date End Date Remedios Mehta MD [address] [place] [phone] PCP - General 02/19/09 01/04/15 documented as of this encounter
--- OUTSIDE RECORDS SUMMARY | 2024-09-17 15:26 | XMS_ITS | Encounter Summary ---
Author Organization [facility] Address [address] [place] [address] Care Team Providers Care Basketball Scout Name Role Phone Remedios Mehta MD Primary Care Provider +1 [phone] Encounter Details Date Type Department Care Team (Latest Contact Info) Description 05/12/2010 10:49 EDT - 05/12/2010 23:59 EDT Hospital Encounter [facility] Cancer Center Hematology & Oncology - [facility] [address] [place] [address] Joey Preciado [address] [place] [address] Discharge Disposition: Auto Discharge Social History Tobacco [...] HOURS PRN PAIN 40 Tab 0 05/10/2010 0 hydroxychloroqui ne (PLAQUENIL) 200 mg tabletIndication [...] 110, factor V Leiden negative, prothrombin gene 80807T negative, PTT 32. Protein S 118, 2. Obesity. 3. Fibromyalgia. 4. Asthma. 5. Depression. 6. Anxiety. 7. GERD. 8. Irritable bowel syndrome. PAST SURGICAL HISTORY: 1. Appendectomy age 14. 2. [place] tooth extraction age 29. 3. Carpal tunnel [...] of . All of these occurred in [place]. Her daughter could not recall being tested [...] rate 68, blood pressure 110/71, respirations 16, .8 kg. In general, an overweight female in [...] Joey Preciado APRN - Joey Preciado APRN [facility] Job ID: Doc ID: [id number] Ext Doc ID: [id number] cc: MD Yonathan El MD Christine H Jones, MD Anya S Koutras, MD documented in this encounter Miscellaneous Notes * Scanned Note-Null - Inpatient, Physician - 05/31/2010 1048 EDT documented in this encounter Plan of Treatment Not on file documented as of this encounter Visit Diagnoses Not on filedocumented in this encounter Care Teams Basketball Scout Relationship Specialty Start Date End Date Remedios Mehta MD [address] [place] [phone] PCP - General 02/19/09 01/04/15 documented as of this encounter
--- OUTSIDE RECORDS SUMMARY | 2024-09-17 15:26 | XMS_ITS | Encounter Summary ---
Author Organization [facility] Address [address] [place] [address] Care Team Providers Care Solution Sales Senior Executive Name Role Phone Remedios Mehta MD Primary Care Provider [phone] [phone] Reason for Visit * Reason Onset Date Comments Medications Refill 05/07/2010 Encounter Details Date Type Department Care Team (Late st Contact Info) Description 05/07/2010 Refill [facility] Total Joint Program - [address] [place], [place] [phone] Kim Holman LPN [address] [place] [address] Medications Refill Social History Tobacco Use Types [...] documented as of this encounter Care Teams Solution Sales Senior Executive Relationship Specialty Start Date End Date Remedios Mehta MD [address] [place] [phone] PCP - General 02/19/09 01/04/15 documented as of this encounter
--- OUTSIDE RECORDS SUMMARY | 2024-09-17 15:26 | XMS_ITS | Encounter Summary ---
Author Organization [facility] Address [address] [place] [address] Care Team Providers Care Police Lieutenant Name Role Phone Remedios Mehta MD Primary Care Provider [phone] Encounter Details Date Type Department Care Team (Late st Contact Info) Description 06/21/2010 Abstract Used for ABSTRACTING Data [phone] Remedios Mehta MD [address] [place] [phone] Social History Tobacco Use Types Packs/Day [...] filedocumented in this encounter Care Teams Police Lieutenant Relationship Specialty Start Date End Date Remedios Mehta MD [address] [place] [phone] PCP - General 02/19/09 01/04/15 documented as of this encounter
--- OUTSIDE RECORDS SUMMARY | 2024-09-17 15:26 | XMS_ITS | Encounter Summary ---
Author Organization [facility] Address [address] [place] [address] Care Team Providers Care Soaker Helper Name Role Phone Remedios Mehta MD Primary Care Provider + -[phone] Reason for Visit * Reason Onset Date Comments Medications Refill 05/27/2010 Encounter Details Date Type Department Care Team (Late st Contact Info) Description 05/27/2010 Refill [facility] Total Joint Program - [address] [place], [place] [phone] Conchita Garza NP [address] [place], [place] [phone] Medications Refill Social History Tobacco Use Types [...] documented as of this encounter Care Teams Soaker Helper Relationship Specialty Start Date End Date Remedios Mehta MD [address] [place] [phone] PCP - General 02/19/09 01/04/15 documented as of this encounter
--- OUTSIDE RECORDS SUMMARY | 2024-09-17 15:26 | XMS_ITS | Encounter Summary ---
Author Organization [facility] Address [address] [place] [address] Care Team Providers Care Tuber Machine Operator Helper Name Role Phone Remedios Mehta MD Primary Care Provider [phone] [phone] Reason for Visit * Reason Onset Date Comments Medications Refill 04/29/2010 Encounter Details Date Type Department Care Team (Late st Contact Info) Description 04/29/2010 Refill [facility] Total Joint Program - [address] [place], [place] [phone] Kim Holman LPN [address] [place] [address] Medications Refill Social History Tobacco Use Types [...] documented as of this encounter Care Teams Tuber Machine Operator Helper Relationship Specialty Start Date End Date Remedios Mehta MD [address] [place] [phone] PCP - General 02/19/09 01/04/15 documented as of this encounter
--- OUTSIDE RECORDS SUMMARY | 2024-09-17 15:26 | XMS_ITS | Encounter Summary ---
Author Organization [facility] Address [address] [place] [address] Care Team Providers Care Human Resource Assistant Name Role Phone Remedios Mehta MD Primary Care Provider [phone] [phone] Encounter Details Date Type Department Care Team (Late st Contact Info) Description 03/25/2010 Results Only [facility] Cancer Center Hematology & Oncology - [facility] [address] [place], [place] [address] Joey Preciado [address] [place] [address] Social History Tobacco Use Types Packs/Day Years [...] agree with the findings. Conchita Garza NP [facility] US ORDERABLES Final Result * THROMBOSIS PANEL PATIENT NOT ON COUMADIN (03/25/2010 15:05 EDT) Pro Time 11.7 9.9 - 13.1 secs [facility] Comment:NOTE NEW REFERENC E RANGE EFFECTIVE 2010 I.N.R. 1.0 0.9 - 1.1 Ratio [facility] Comment: Moderate Intensity Coumadin INR = 2.0-3.0 Adjustments in anticoagulant therapy dose should be based upon the INR and NOT the Pro Time. D-Dimer <200 <230 ng/mL [facility] Comment: CUTOFF VALUE FOR THE EXCLUSION OF DVT and PE: 230 ng/mL Please note new reporting units and normal range effective 02/03/2010 PTT 32 24 - 35 secs [facility] Comment: Therapeutic Heparin range: ??60-90 seconds NOTE NEW REFERENCE RANGE EFFECTIVE 2010 NOTE: ??New Therapeutic Heparin range effective 02/03/2010 Patient PTT50 Test cancelled, normal APTT 20 - 35 secs [facility] CTRL 50/50 PTT Test cancelled, normal APTT secs [facility] Mix 50/50 PTT Test cancelled, normal APTT secs [facility] Factor 8 Assay 110 53 - 143 % [facility] Comment:NOTE NEW REFERENC E RANGE EFFECTIVE 2010 Protein S Activity 118 60 - 149 % [facility] Comment: Note new reference range. a. [...] C Clot 116 74 - 187 % [facility] Comment: Note new reference range. a. [...] (<10.0 GPL) ? Performed or Referred by: [facility] D[facility] of Lab Med and Path, [address] ? [place] [address], Lab Dir: Gianfranco Sun III, ? MD [...] PERFORMED BY: ? [facility] ? [facility] ? [address], [address] ? [place] [address] ? These results need to be interpreted in the context of the clinical ? presentation and the results of other laboratory tests. ??A ? consultation with a Medical Physiologist or Thrombosis Specialist may be of ? [...] do not require FDA approval. ??A ? [place] statute prevents our laboratory from releasing these results ? to anyone other than the person who has been tested and the referring ? clinician without the prior written consent of the person tested. ? Leatha ??E. Mckeon, MD ? Clinical Director ? Diagnosis Code: ??289.81 ? [facility] Prothrombin Mutation RESULT: ? The Prothrombin H62723E mutation was not detected. ? METHOD: ? The Prothrombin C42792H mutation is detected by amplification of DNA ? isolated from blood following by melt curve analysis ? INTERPRETATION: ? The Prothrombin U63790Q mutation is not present. ?? A genetic cause of ? deep-vein thrombosis can not be excluded since there are many other ? disease causing mutations. ? As of October 30, 1998, [place] Act 160 prohibits release of genetic test ? results to third parties without the specific informed consent of the ? patient. ? TEST PERFORMED BY: ? [facility] ? [facility] ? [address], [address] ? [place] [address] ? These results need to be interpreted in the context of the clinical ? presentation and the results of other laboratory tests. ??A ? consultation with a Medical Physiologist or Thrombosis Specialist may be of ? [...] do not require FDA approval. ??A ? [place] statute prevents our laboratory from releasing these results ? to anyone other than the person who has been tested and the referring ? clinician without the prior written consent of the person tested. ? Leatha ??Dangelo Mckeon MD ? Clinical Director ? Diagnosis Code: ??289.81 ? [facility] 03/25/2010 15:0 5 EDT 03/25/2010 15:06 EDT us Joey Preciado PACKAGES & DNA PROBE ORDERABLES Final Result Performing Organization Address [facility] de Phone Number [facility] [address] [place] [address] * FACTOR 11 ASSAY (03/25/2010 15:05 EDT) Factor 11 Assay 95 62 - 145 % [facility] Comment:NOTE NEW REFERENC E RANGE EFFECTIVE 2010 03/25/2010 15:0 5 EDT 03/25/2010 15:06 EDT us Joey Preciado HEMATOLOGY & PF4 ORDERABLES Fin al Result Performing Organization Address [facility] de Phone Number [facility] [address] [place] [address] documented in this encounter Visit Diagnoses Not on filedocumented in this encounter Care Teams Human Resource Assistant Relationship Specialty Start Date End Date Remedios Mehta MD [address] [place] [phone] PCP - General 02/19/09 01/04/15 documented as of this encounter
--- OUTSIDE RECORDS SUMMARY | 2024-09-17 15:26 | XMS_ITS | Encounter Summary ---
Author Organization [facility] Address [address] [place] [address] Care Team Providers Care Rfid Analyst Name Role Phone Remedios Mehta MD Primary Care Provider + -[phone] Reason for Visit * Reason Comments Follow-up Right TKA 04/15/10 Encounter Details Date Type Department Care Team (Latest Contact Info) Description 05/17/2010 14:10 EDT Office Visit [facility] Total Joint Program - [address] [place], [place] [phone] Conchita Garza NP [address] [place], [place] [address] Osteoarthritis (Primary Dx) Social History Tobacco Use [...] reconciliation completed. Complications Since Last Visit? None [facility] complication sheet completed OBJECTIVE: Afebrile, alert and [...] documented as of this encounter Care Teams Rfid Analyst Relationship Specialty Start Date End Date Remedios Mehta MD [address] [place] [phone] PCP - General 02/19/09 01/04/15 documented as of this encounter
--- OUTSIDE RECORDS SUMMARY | 2024-09-17 15:26 | XMS_ITS | Encounter Summary ---
Author Organization [facility] Address [address] [place] [address] Care Team Providers Care Stabilizing Machine Operator Name Role Phone Remedios Mehta MD Primary Care Provider +1 [phone] Reason for Visit * Reason Onset Date Comments Medications Refill 05/10/2010 Encounter Details Date Type Department Care Team (Late st Contact Info) Description 05/10/2010 Refill [facility] Total Joint Program - [address] [place], [place] [phone] Kim Holman LPN [address] [place] [address] Medications Refill Social History Tobacco Use Types [...] documented as of this encounter Care Teams Stabilizing Machine Operator Relationship Specialty Start Date End Date Remedios Mehta MD [address] [place] [phone] PCP - General 02/19/09 01/04/15 documented as of this encounter
--- OUTSIDE RECORDS SUMMARY | 2024-09-17 15:26 | XMS_ITS | Encounter Summary ---
Author Organization [facility] Address [address] [place] [address] Care Team Providers Care Probate Lawyer Name Role Phone Remedios Mehta MD Primary Care Provider + -[phone] Encounter Details Date Type Department Care Team (Latest Contact Info) Description 06/14/2010 10:24 EDT - 06/14/2010 23:59 EDT Hospital Encounter [facility] [address] [place] [address] Conchita Garza NP [address] [place], [place] [address] Total knee replacement status Discharge Disposition: Auto [...] 20 mm/hr [facility] Comment:Performed at [facility], [place], [place] 06/14/2010 10:5 7 EDT 06/14/2010 10:59 EDT us Conchita Garza NP HEMATOLOGY & PF4 ORDERABLES Jessica fritz Result [facility] [address] [place] [address] * (ABNORMAL) HEMAGRAM AND DIFFERENTIAL (06/14/2010 10:57 [...] [facility] Comment:Performed at [facility], [place], [place] % Neutrophils 49.3 45.5 - 79.7 [...] 10:57 EDT 06/14/2010 10:59 EDT Conchita Garza COMMERCIAL ARTIST PACKAGES & DNA PROBE ORDERABLES Final Result Performing Organization Address [facility] de Phone Number [facility] [address] [place] [address] * (ABNORMAL) C-REACTIVE PROTEIN (06/14/2010 10:57 EDT) C-Reactive Protein 1.6(H) <1.0 mg/dl [facility] Blood specimen (specimen) 06/14/2010 10:57 EDT 06/14/2010 10:59 EDT Conchita Garza COMMERCIAL ARTIST CHEMISTRY & BLOOD GAS ORDERABLES Final Result Performing Organization Address [facility] de Phone Number [facility] [address] [place] [address] documented in this encounter Visit Diagnoses Diagnosis Total knee replacement status Knee joint replacement by other means documented in this encounter Care Teams Probate Lawyer Relationship Specialty Start Date End Date Remedios Mehta MD [address] [place] [phone] PCP - General 02/19/09 01/04/15 documented as of this encounter
--- OUTSIDE RECORDS SUMMARY | 2024-09-17 15:26 | XMS_ITS | Encounter Summary ---
Author Organization [facility] Address [address] [place] [address] Care Team Providers Care Dental Appliance Repairer Name Role Phone Remedios Mehta MD Primary Care Provider +1 [phone] Reason for Visit * Reason Onset Date Comments Medications Refill 04/27/2010 Encounter Details Date Type Department Care Team (Late st Contact Info) Description 04/27/2010 Refill [facility] Total Joint Program - [address] [place], [place] [phone] Kim Holman LPN [address] [place] [address] Medications Refill Social History Tobacco Use Types [...] filedocumented in this encounter Care Teams Dental Appliance Repairer Relationship Specialty Start Date End Date Remedios Mehta MD [address] [place] [phone] PCP - General 02/19/09 01/04/15 documented as of this encounter
--- OUTSIDE RECORDS SUMMARY | 2024-09-17 15:26 | XMS_ITS | Encounter Summary ---
Author Organization [facility] Address [address] [place] [address] Care Team Providers Care Water Mangle Tender Name Role Phone Remedios Mehta MD Primary Care Provider [phone] Encounter Details Date Type Department Care Team (Late st Contact Info) Description 06/11/2010 Orders Only [facility] Total Joint Program - [address] [place] [address] Conchita Garza NP [address] [place], [place] [address] Total knee replacement status (Primary Dx) Social [...] femorotibial compartment. Soft tissues are grossly unremarkable. us Conchita Garza NP IMG DIAGNOSTIC IMAGING ORDERABLE S Final Result * KNEE 1 OR 2 VIEWS (06/14/2010 [...] femorotibial compartment. Soft tissues are grossly unremarkable. us Conchita Garza NP IMG DIAGNOSTIC IMAGING ORDERABLE S Final Result documented in this encounter Visit Diagnoses Diagnosis Total knee replacement status- Primary Knee joint replacement by other means documented in this encounter Care Teams Water Mangle Tender Relationship Specialty Start Date End Date Remedios Mehta MD [address] [place] [phone] PCP - General 02/19/09 01/04/15 documented as of this encounter
--- OUTSIDE RECORDS SUMMARY | 2024-09-17 15:26 | XMS_ITS | Encounter Summary ---
Author Organization [facility] Address [address] [place] [address] Care Team Providers Care Basket Bottom Machine Operator Name Role Phone Remedios Mehta MD Primary Care Provider +1 [phone] Encounter Details Date Type Department Care Team (Latest Contact Info) Description 04/08/2010 16:37 EDT - 04/08/2010 23:59 EDT Hospital Encounter [facility] Hematology & On[facility] - [facility] [address] [place], [place] [phone] Joey Preciado [address] [place] [address] Discharge Disposition: Home or Self Care Social [...] or Self Retirement documented in this encounter Progress Notes * [...] 110, factor V Leiden negative, prothrombin gene 05771H negative, PTT 32. Protein S 118, 2. Obesity. 3. Fibromyalgia. 4. Asthma. 5. Depression. 6. Anxiety. 7. GERD. 8. Irritable bowel syndrome. PAST SURGICAL HISTORY: Appendectomy at age 14. [place] tooth extraction at age 29. Carpal tunnel [...] month of . All this occurred in [place]. Ispoke with Ms Husain's daughter during my [...] Preciado APRN P - JG Job ID: Doc ID: [id number] Ext Doc ID: [id number] cc: MD Yonathan El MD Christine H [...] Results * GLUCOSE, GLUCOMETER (04/15/2010 16:59 EDT) Glucose, Fingerstick 100 70 - 100 mg/dl [facility] Display Coordinator ID [id number] Test Performed by Nursing Services [facility] 04/15/2010 16:5 9 EDT 04/15/2010 17:01 EDT us Yonathan Moreland MD CHEMISTRY & BLOOD GAS ORDERABLES Final Result [facility] [address] [place] [address] documented in this encounter Visit Diagnoses Not on filedocumented in this encounter Care Teams Basket Bottom Machine Operator Relationship Specialty Start Date End Date Remedios Mehta MD [address] [place] [phone] PCP - General 02/19/09 01/04/15 documented as of this encounter
--- OUTSIDE RECORDS SUMMARY | 2024-09-17 15:26 | XMS_ITS | Encounter Summary ---
Author Organization [facility] Address [address] [place] [address] Care Team Providers Care Lockstitch Topstitcher Name Role Phone Remedios Mehta MD Primary Care Provider [phone] [phone] Reason for Visit * Reason Onset Date Comments Medications Refill 05/18/2010 Encounter Details Date Type Department Care Team (Late st Contact Info) Description 05/18/2010 Refill [facility] Total Joint Program - Rebecca [address] [place], [place] [phone] Kim Holman LPN [address] [place] [address] Medications Refill Social History Tobacco Use Types [...] documented as of this encounter Care Teams Lockstitch Topstitcher Relationship Specialty Start Date End Date Remedios Mehta MD [address] [place] [phone] PCP - General 02/19/09 01/04/15 documented as of this encounter
--- OUTSIDE RECORDS SUMMARY | 2024-09-17 15:27 | XMS_ITS | Encounter Summary ---
Author Organization [facility] Address [address] [place] [address] Care Team Providers Care Front End Software Engineer Name Role Phone Remedios Mehta MD Primary Care Provider [phone] Reason for Visit * Reason Comments Pre-op Exam right knee replaceme nt surg sched for 04/15 by [facility] ([facility]) Encounter Details Date Type Department Care Team (Late st Contact Info) Description 03/22/2010 11:30 EDT Office Visit [address] [phone] Abisai Martin MD Degenerative arthritis of right [...] leg documented in this encounter Care Teams Front End Software Engineer Relationship Specialty Start Date End Date Remedios Mehta MD [address] [place] [phone] PCP - General 02/19/09 01/04/15 documented as of this encounter
--- OUTSIDE RECORDS SUMMARY | 2024-09-17 15:27 | XMS_ITS | Encounter Summary ---
Author Organization [facility] Address [address] [place] [address] Care Team Providers Care Hydraulic Press Operator Name Role Phone Remedios Mehta MD Primary Care Provider [phone] Encounter Details Date Type Department Care Team (Late st Contact Info) Description 10/07/[address] [phone] Remedios Mehta MD [address] [place] [phone] Social History Tobacco Use Types Packs/Day Years Used Date Smoking Tobacco: Never Assessed Comments Unknown Sex and Gender Information Value Date Recorded Sex Assigned at Not on file Legal Sex Female 17:25 EST Gender Identity Female 2021 11:19 EDT Sexual Orientation Not on file documented as of this encounter Plan of Treatment Not on file documented as of this encounter Visit Diagnoses Not on filedocumented in this encounter Care Teams Hydraulic Press Operator Relationship Specialty Start Date End Date Remedios Mehta MD [address] [place] [phone] PCP - General 02/19/09 01/04/15 documented as of this encounter
--- OUTSIDE RECORDS SUMMARY | 2024-09-17 15:27 | XMS_ITS | Encounter Summary ---
Author Organization [facility] Address [address] [place] [address] Care Team Providers Care Electricity Trader Name Role Phone Remedios Mehta MD Primary Care Provider + -[phone] Reason for Visit * Reason Comments Carpal Tunnel Left endoscopic CTR DOS 03/02/10 Encounter Details Date Type Department Care Team (Late st Contact Info) Description 03/15/2010 14:30 EDT Office Visit [facility] Hand & Upper Extremity Program - [address] [address] Jakub Black MD [address] [place] [phone] CTS (carpal tunnel syndrome) Social History [...] Black MD 04/04/2010 19:13 Jakub Black MD [address] [place] [address] - Jakub Black MD - TERE Job ID: SM Doc ID: [id number] Ext Doc ID: [id number] cc: * Jakub Black MD - 03/15/2010 1503 EDT This office note has been dictated. Review of Systems - Negative documented in this encounter Plan of Treatment Not on file documented as of this encounter Visit Diagnoses Diagnosis CTS (carpal tunnel syndrome) Carpal tunnel syndrome documented in this encounter Care Teams Electricity Trader Relationship Specialty Start Date End Date Remedios Mehta MD [address] [place] [phone] PCP - General 02/19/09 01/04/15 documented as of this encounter
--- OUTSIDE RECORDS SUMMARY | 2024-09-17 15:27 | XMS_ITS | Encounter Summary ---
Author Organization [facility] Address [address] [place] [address] Care Team Providers Care Paper Supervisor Name Role Phone Remedios Mehta MD Primary Care Provider +1 [phone] Reason for Visit * Reason Comments Knee Pain right knee pain fibr omyalgia? ongoing pain starting to hurt hip Encounter Details Date Type Department Care Team (Late st Contact Info) Description 01/26/2010 15:00 EDT Office Visit [facility] Sports Medicine Program - [address] [place], [place] [phone] José Miguel Davidson Knee pain (Primary Dx) [...] This includes large areas of full-thickness or inte-tkfs-jqqcjmttf articular cartilage loss involving the anterior and [...] This includes large areas of full-thickness or alpn-lsle-cettpvhbw articular cartilage loss involving the anterior and [...] details and additional findings. José Miguel Davidson [facility] MRI ORDERABLES Final Result documented in this encounter Visit Diagnoses Diagnosis Knee pain- Primary Pain in joint, lower leg * Evaluation - José Miguel Davidson PA-C - 01/27/2010 1150 EDT [facility] [address] [place] [phone] NEW PATIENT EVALUATION - 01/26/2010 PROBLEMS: Right [...] - GLT Job ID: SM Doc ID: [id number] Ext Doc ID: [id number] cc: documented in this encounter Discontinued Medications Medication Sig Discontinue Reason Start Date End Da te lovastatin (MEVACOR) 20 mg tablet Take 20 mg by mouth at bedtime. Patient Stopped Taking 01/26/2010 documented as of this encounter Care Teams Paper Supervisor Relationship Specialty Start Date End Date Remedios Mehta MD [address] [place] [phone] PCP - General 02/19/09 01/04/15 documented as of this encounter
--- OUTSIDE RECORDS SUMMARY | 2024-09-17 15:27 | XMS_ITS | Encounter Summary ---
Author Organization [facility] Address [address] [place] [address] Care Team Providers Care Tool Maintenance Technician Name Role Phone Remedios Mehta MD Primary Care Provider +1 [phone] Reason for Visit * Reason Comments Knee Pain right Encounter Details Date Type Department Care Team (Late st Contact Info) Description 02/18/2010 11:30 EDT Office Visit [facility] Sports Medicine Program [place] [address] [place] [address] Heladio Medina MD [address] [place] [address] OA (osteoarthritis) of knee; Medial [...] EDT [facility] [address] [place] [phone] PROGRESS/FOLLOWUP NOTE - 02/18/2010 REASON FOR VISIT: [...] Heladio Medina MD - EVELYN Job ID: SM Doc ID: [id number] [facility] Doc ID: [id number] cc: * Heladio Medina MD - 02/18/2010 1205 EDT This office note has been dictated. documented in this encounter Plan of Treatment Not on file documented as of this encounter Visit Diagnoses Diagnosis OA (osteoarthritis) of knee Osteoarthrosis, unspecified whether generalized or localized, lower leg Medial meniscus tear Tear of medial cartilage or meniscus of knee, current documented in this encounter Care Teams Tool Maintenance Technician Relationship Specialty Start Date End Date Remedios Mehta MD [address] [place] [phone] PCP - General 02/19/09 01/04/15 documented as of this encounter
--- OUTSIDE RECORDS SUMMARY | 2024-09-17 15:27 | XMS_ITS | Encounter Summary ---
Author Organization [facility] Address [address] [place] [address] Care Team Providers Care Studio Operations Manager Name Role Phone Unavailable Primary Care Provider Unavailabl e Encounter Details Date Type Department Care Team (Late st Contact Info) Description 02/09/2009 11:[address] [facility] conversion [address] [place] [address] Cathryn Garza, PA [address] [place], [place] [address] Social History Tobacco Use Types Packs/Day Years [...]
--- OUTSIDE RECORDS SUMMARY | 2024-09-17 15:27 | XMS_ITS | Encounter Summary ---
Author Organization [facility] Address [address] [place] [address] Care Team Providers Care Dump Attendant Name Role Phone Remedios Mehta MD Primary Care Provider + -[phone] Encounter Details Date Type Department Care Team (Latest Contact Info) Description 03/23/2010 14:31 EDT - 03/23/2010 23:59 EDT Hospital Encounter [facility] [address] [place] [address] Conchita Garza NP [address] [place] [address] Other specified pre-operative examination; Loc osteoarth NOS-l/leg; [...] [facility] Antibody Screen Negative [facility] Comment:SAMPLE EXPIRES 04/18 AT 2359 03/23/2010 16:1 4 EDT 03/23/2010 16:14 EDT Yonathan Moreland MD BLOOD BANK TESTS Final Result [facility] [address] [place] [address] * PREPARE RED BLOOD CELLS (03/23/2010 16:14 EDT) Product Code -3 RED BLOOD CELLS,ADENINE- SALINE ADDED,LEUKOCYT ES REDUCED [facility] Donor Number [id number] [facility] Unit ABO AB [facility] Unit Rh POS [facility] Cross Match Interp Compatible [facility] Unit Status Released From Crossmatch [facility] 03/23/2010 16:1 4 EDT 03/23/2010 16:14 EDT Yonathan Moreland MD BLOOD BANK ORDERABLES Final Result Performing Organization Address [facility]/ZIP Co de Phone Number [facility] [address] [place] [address] * UA REFLEX (03/23/2010 14:53 EDT) UA Billing Microscopic not indicated. [facility] 03/23/2010 14:5 3 EDT 03/23/2010 14:55 EDT Conchita Garza NP URINALYSIS ORDERABLES Final Resu lt Performing Organization Address [facility] Co de Phone Number [facility] [address] [place] [address] * CULTURE IF UA POSITIVE (03/23/2010 14:53 EDT) Culture if Indicated Culture not indicated by urinalysis results. [facility] Urine specimen (specimen) 03/23/2010 14:53 EDT 03/23/2010 14:55 EDT Conchita Garza NP MICROBIOLOGY - GENERAL ORDERABLE S Final Result Performing Organization Address [facility] de Phone Number [facility] [address] [place] [address] * URINALYSIS (03/23/2010 14:53 EDT) Color, UA Yellow [facility] Clarity, UA Clear [facility] Glucose, UA Neg NEG [facility] Bilirubin, UA Neg NEG [facility] Ketones, UA Neg NEG [facility] Specific [place], Urine >1.030 1.001 - 1.035 [facility] Blood, UA Neg NEG [facility] pH, UA 6.0 4.6 - 8.0 [facility] Protein, UA Neg NEG [facility] Urobilinogen, UA 0.2 0.2 - 1.0 E.U./dl [facility] Nitrite, UA Neg NEG [facility] Leuk Esterase Neg NEG FLEKAYLAN [facility] Refractometer SG,Urine 1.026 1.001 - 1.035 [facility] Urine specimen (specimen) 03/23/2010 14:53 EDT 03/23/2010 14:55 EDT Conchita Garza BOTTOM SAW OPERATOR URINALYSIS ORDERABLES Final Resu lt Performing Organization Address [facility] de Phone Number [facility] [address] [place] [address] * BASIC METABOLIC PANEL (03/23/2010 14:53 EDT) Sodium 139 136 - 145 mEq/L [facility] Potassium 4.3 3.5 - 5.0 mEq/L [facility] Chloride 104 96 - 110 mEq/L [facility] CO2 25 24 - 32 mEq/L [facility] BUN 16 10 - 26 mg/dl [facility] Creatinine 0.73 0.7 - 1.5 mg/dl [facility] GFR, Calculated >60 ml/min/1.7 3m2 [facility] Calcium 9.2 8.5 - 10.5 mg/dl [facility] Calculated Calcium 9.5 8.5 - 10.5 mg/dl [facility] Glucose, Serum 98 70 - 100 mg/dl [facility] Fasting? Unknown [facility] Blood specimen (specimen) 03/23/2010 14:53 EDT 03/23/2010 14:54 EDT Conchita Garza NP CHEMISTRY & BLOOD GAS ORDERABLES Final Result Performing Organization Address [facility] de Phone Number [facility] [address] [place] [address] * (ABNORMAL) HEMAGRAM AND DIFFERENTIAL (03/23/2010 14:53 EDT) WBC 8.39 4.0 - 12.4 K/cmm [facility] RBC 4.06 3.86 - 5.04 M/cmm [facility] Hemoglobin 12.6 11.6 - 15.2 gm/dl [facility] HCT 36.4 34.9 - 44.4 % [...] [facility] Blood specimen (specimen) 03/23/2010 14:53 EDT 03/23/2010 14:54 EDT Conchita Garza BOTTOM SAW OPERATOR PACKAGES & DNA PROBE ORDERABLES Final Result [facility] [address] [place] [address] documented in this encounter Visit Diagnoses Diagnosis Other specified pre-operative examination Localized osteoarthrosis not specified whether primary or secondary, lower leg Pain in joint, lower leg documented in this encounter Care Teams Dump Attendant Relationship Specialty Start Date End Date Remedios Mehta MD [address] [place] [phone] PCP - General 02/19/09 01/04/15 documented as of this encounter
--- OUTSIDE RECORDS SUMMARY | 2024-09-17 15:27 | XMS_ITS | Encounter Summary ---
Author Organization [facility] Address [address] [place] [address] Care Team Providers Care Research Hydraulic Engineer Name Role Phone Remedios Mehta MD Primary Care Provider +1 [phone] Reason for Visit * Reason Onset Date Comments Medications Refill 02/03/2010 PROTONIX, ADV AIR Encounter Details Date Type Department Care Team (Late st Contact Info) Description 02/03/[address] [address] Remedios Mehta MD [address] [place] [place] [phone] Medications Refill (PROTONIX, ADVAIR) Social History [...] End Date omeprazole (PRILOSEC) 20 mg capsule Take 1 Cap by mouth 2 times daily. dose increase 60 Cap 3 02/03/2010 1 fluticasone-salmet den (ADVAIR DISKUS) 500-50 mcg/Dose diskus inhaler Inhale 1 Puff as directed 2 times daily. 1 Each 5 02/03/2010 1 documented in this encounter Miscellaneous Notes [...] documented as of this encounter Care Teams Research Hydraulic Engineer Relationship Specialty Start Date End Date Remedios Mehta MD [address] [place] [phone] PCP - General 02/19/09 01/04/15 documented as of this encounter
--- OUTSIDE RECORDS SUMMARY | 2024-09-17 15:27 | XMS_ITS | Encounter Summary ---
Author Organization [facility] Address [address] [place] [address] Care Team Providers Care Supervisor Treating And Pumping Name Role Phone Remedios Mehta MD Primary Care Provider [phone] Encounter Details Date Type Department Care Team (Late st Contact Info) Description 10/14/[address] [phone] Remedios Mehta MD [address] [place] [phone] Social History Tobacco Use Types Packs/Day [...] filedocumented in this encounter Care Teams Supervisor Treating And Pumping Relationship Specialty Start Date End Date Remedios Mehta MD [address] [place] [phone] PCP - General 02/19/09 01/04/15 documented as of this encounter
--- OUTSIDE RECORDS SUMMARY | 2024-09-17 15:27 | XMS_ITS | Encounter Summary ---
Author Organization [facility] Address [address] [place] [address] Care Team Providers Care Library Information Technician Name Role Phone Remedios Mehta MD Primary Care Provider +1 [phone] Encounter Details Date Type Department Care Team (Late st Contact Info) Description 11/24/2009 13:10 EST - 11/24/2009 23:59 EST Hospital Encounter [facility] Rheumatology & Immunology - [facility] [address] [place], [place] [phone] Yovana Callejas MD [address] [place] [address] [phone] Discharge Disposition: Home or Self Care Social [...] times daily. 2 duloxetine (CYMBALTA) 20 mg capsule Take 20 mg by mouth 2 times daily. 09/27/2010 1 fluticasone-salm eterol (ADVAIR DISKUS) 500-50 mcg/Dose diskus inhaler Inhale 1 Puff as directed 2 times daily. 0 hydroxychloroqui ne (PLAQUENIL) 200 mg tablet Take 200 mg by mouth 2 times daily. 0 loratadine (CLARITIN) 10 mg tablet Take 10 mg by mouth once daily. 0 lorazepam (ATIVAN) 0.5 mg Tab Take 0.5 mg by mouth as needed. 2 pantoprazole (PROTONIX) 40 mg tablet Take 40 mg by mouth 2 times daily. 0 PREGABALIN (LYRICA ORAL) Take 1 Tab by mouth daily. One tablet nightly, does not remember dose 0 trazodone (DESYREL) 50 mg tablet Take [...] and SULFA. 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
--- OUTSIDE RECORDS SUMMARY | 2024-09-17 15:27 | XMS_ITS | Encounter Summary ---
Author Organization [facility] Address [address] [place] [address] Care Team Providers Care Fruit Farmworker Name Role Phone Remedios Mehta MD Primary Care Provider [phone] Encounter Details Date Type Department Care Team (Late st Contact Info) Description 09/18/2009 Abstract [facility] Medicine [address] [phone] Remedios Mehta MD [address] [place] [phone] Social History Tobacco Use Types Packs/Day [...] documented as of this encounter Care Teams Fruit Farmworker Relationship Specialty Start Date End Date Remedios Mehta MD [address] [place] [phone] PCP - General 02/19/09 01/04/15 documented as of this encounter
--- OUTSIDE RECORDS SUMMARY | 2024-09-17 15:27 | XMS_ITS | Encounter Summary ---
Author Organization [facility] Address [address] [place] [address] Care Team Providers Care Produce Weigher Name Role Phone Remedios Mehta MD Primary Care Provider [phone] Encounter Details Date Type Department Care Team (Late st Contact Info) Description 01/04/2010 Abstract [facility] Cardiology - [facility] [address] [place] [address] Remedios Mehta MD [address] [place] [phone] Social History Tobacco Use Types Packs/Day [...] may reflect changes made after this encounter. lovastatin (MEVACOR) 20 mg tablet Take 20 mg by mouth at bedtime. 01/26/2010 added in this encounter Care Teams Produce Weigher Relationship Specialty Start Date End Date Remedios Mehta MD [address] [place] [phone] PCP - General 02/19/09 01/04/15 documented as of this encounter
--- OUTSIDE RECORDS SUMMARY | 2024-09-17 15:27 | XMS_ITS | Encounter Summary ---
Author Organization [facility] Address [address] [place] [address] Care Team Providers Care Director Of User Experience Name Role Phone Remedios Mehta MD Primary Care Provider [phone] Encounter Details Date Type Department Care Team (Late st Contact Info) Description 01/27/2010 Abstract [facility] Orthopedics & Rehabilitation Center - [address] [address] Jakub Black MD [address] [place] [phone] Fibromyalgia Social History Tobacco Use Types [...] unspecified documented in this encounter Care Teams Director Of User Experience Relationship Specialty Start Date End Date Remedios Mehta MD [address] [place] [phone] PCP - General 02/19/09 3 documented as of this encounter
--- OUTSIDE RECORDS SUMMARY | 2024-09-17 15:27 | XMS_ITS | Encounter Summary ---
Author Organization [facility] Address [address] [place] [address] Care Team Providers Care Web Publisher Name Role Phone Remedios Mehta MD Primary Care Provider [phone] -[phone] Reason for Referral * Consult (Routine) - Closed Specialty Diagnoses / Procedures Referred By Joao proctor Referred To Contact Cardiology Diagnoses Dizziness - light-headed Headache(784.0) Atypical chest pain Cathryn Garza PA Phone: tel: fax: [facility] Cardiology - [address] [address] Phone: tel: fax: Referral ID Status Reason Start Date Expiration Date V isits Requested Visits Authorized [id number] Closed Specialty Services Required 12/23/2009 1 1 Question Answer Reason for Request: atypical chest pain, dizziness, headache Comments Exercise tolerance test and ECHO completed October 2009. Encounter Details Date Type Department Care Team (Late st Contact Info) Description 12/23/2009 Orders Only [facility] Family Medicine [address] [address] Cathryn Garza PA [address] [place], [place] [phone] Dizziness - light-headed; Headache; Atypical chest pain [...] pain documented in this encounter Care Teams Web Publisher Relationship Specialty Start Date End Date Remedios Mehta MD [address] [place] [phone] PCP - General 02/19/09 01/04/15 documented as of this encounter
--- OUTSIDE RECORDS SUMMARY | 2024-09-17 15:27 | XMS_ITS | Encounter Summary ---
Author Organization [facility] Address [address] [place] [address] Care Team Providers Care Gift Consultant Name Role Phone Remedios Mehta MD Primary Care Provider + -[phone] Encounter Details Date Type Department Care Team (Latest Contact Info) Description 03/02/2010 12:07 EDT - 03/02/2010 21:31 EDT Hospital Encounter [facility] Perioperative Services - [address] [address] Jakub Black MD [address] [place] [phone] Discharge Disposition: Home or Self Care [...] times daily. 1 Each 5 02/03/2010 1 hydroxychloroqui ne (PLAQUENIL) 200 mg tabletIndication [...] 0.5 mg by mouth as needed. 2 omeprazole (PRILOSEC) 20 mg capsule Take 1 Cap by mouth 2 times daily. dose increase 60 Cap 3 02/03/2010 1 PREGABALIN (LYRICA ORAL) Take 1 Tab by [...] SERVICE DATE: 03/02/2010 SURGEON: Jakub Black MD INTERNATIONAL PROJECT MANAGER: MARIA Sharif (No resident available.) PREOPERATIVE DIAGNOSIS: Left carpal tunnel syndrome. POSTOPERATIVE DIAGNOSIS: Left carpal tunnel syndrome. PROCEDURE: Left endoscopic carpal tunnel release. ANESTHESIA: Neeta block. COMPLICATIONS: None. NARRATIVE: The patient was put under Neeta block anesthesia to her left arm. The [...] Jakub Black MD 10 45 AM / [facility] Confirmation: [id number] Dictation ID: [id number] documented in this encounter Miscellaneous Notes * [...] 03/05/2010 14:17 EDT Physician Inpatient MD ADMISSION ORDERABLES Jessica l Result documented in this encounter Visit Diagnoses Not on filedocumented in this encounter Care Teams Gift Consultant Relationship Specialty Start Date End Date Remedios Mehta MD [address] [place] [phone] PCP - General 02/19/09 01/04/15 documented as of this encounter
--- OUTSIDE RECORDS SUMMARY | 2024-09-17 15:27 | XMS_ITS | Encounter Summary ---
Author Organization [facility] Address [address] [place] [address] Care Team Providers Care Professional Benefits Sales Consultant Name Role Phone Remedios Mehta MD Primary Care Provider [phone] Reason for Visit * Reason Comments Knee Pain right knee pain Encounter Details Date Type Department Care Team (Late st Contact Info) Description 03/10/2010 15:00 EDT Office Visit [facility] Total Joint Program - [address] [place], [place] [phone] Yonathan Moreland MD OA (osteoarthritis) of knee [...] patient's level of understanding was verified utilizing jlw-zhrj-zkx techniques. Greater than50% of today's encounter was [...] may reflect changes made after this encounter. oxycodone (ROXICODONE) 5 mg immediate release tablet Take 5 mg by mouth every 4 hours as needed for Pain. 04/20/2010 added in this encounter Care Teams Professional Benefits Sales Consultant Relationship Specialty Start Date End Date Remedios Mehta MD [address] [place] [phone] PCP - General 02/19/09 01/04/15 documented as of this encounter
--- OUTSIDE RECORDS SUMMARY | 2024-09-17 15:27 | XMS_ITS | Encounter Summary ---
Author Organization [facility] Address [address] [place] [address] Care Team Providers Care Manager Insurance Name Role Phone Remedios Mehta MD Primary Care Provider [phone] Reason for Visit * Reason Comments Wrist Problem left wrist carpal tu nnel syndrome Encounter Details Date Type Department Care Team (Late st Contact Info) Description 02/01/2010 8:45 EDT Office Visit [facility] Hand & Upper Extremity Program - [address] [place] [address] Gage Black MD [address] [place] [address] CTS (carpal tunnel syndrome) (Primary [...] GAGE BLACK Date of Surgery: 03/02/10 Where: [facility] The registered nurse surgical services will call you the day before surgery [...] Compensation case you should contact your assigned case worker to inform them of your surgery date. If you have not been contacted by 4 pm the day before your surgery, please give us a call. Additionally, if you have any other questions, please feel free to contact our office. Toll free [phone] or [phone]. Our office hours are Monday - Monday [...] questions, please call the Pre-op Center at [facility] [phone] between the hours of 7:30am - 5:30pm Monday - Monday WHAT TO EXPECT AN OUTPATIENT SURGICAL PATIENT [facility]'s Outpatient Surgery program is a service offered [...] or blouses. Remove all makeup and nail djiboutian. Bring an eyeglass case or contact lens case if you wear corrective lenses. Please leave all valuables, money and jewelry at home. Remove all rings Please call your surgeon's office or pre-op services at [phone] with any questions. Notify your doctor if [...] you arrive for surgery Please arrive at [facility] per the time specified by your physician's office. Thiswill allow us adequate time to prepare you for your surgery. Your surgery will be scheduled either on the [facility] or on the [facility]. After registering in Admitting, you will be sent to the Surgical Admission area where you will be prepared for your surgery. You will change into a hospital gown or [facility] Your health status will be updated and [...] at each campus is staffed by a receptionist secretary who will take your family's name as [...] the hospital accompanied by a responsible adult cdl dedicated truck driver after anesthesia or sedation. For the [...] make arrangements for motel/hotel accommodations in the [facility]. You can find lodging information on [email or web address] under the Patients and Visitors tab/Visitor's guide/Community [...] anesthesia care prescribed to me by the econometrician/anesthesiologist for my surgical procedure excepting... My consent will continue in effect unless withdrawn. If you have any questions and would like to discuss your anesthesia care please call the Departmentof Anesthesia at [phone] and you will be connected to an anesthesiologist or one will return your phone call. documented in this encounter Progress Notes * Gage Black MD - 02/17/2010 5455 EDT ORTHOPAEDICS AND REHABILITATION SERVICES PROGRESS/FOLLOWUP NOTE [...] Black MD 02/17/2010 15:05 Gage Black MD [address] [place], [place] [phone] - Gage Black MD - Job ID: SM Doc ID: [id number] Ext Doc ID: [id number] cc: * Gage Black MD - 02/01/2010 0957 EDT Review of Systems - Negative This office note has been dictated. documented in this encounter Plan of Treatment Not on file documented as of this encounter Visit Diagnoses Diagnosis CTS (carpal tunnel syndrome)- Primary Carpal tunnel syndrome documented in this encounter Care Teams Manager Insurance Relationship Specialty Start Date End Date Remedios Mehta MD [address] [place] [phone] PCP - General 02/19/09 01/04/15 documented as of this encounter
--- OUTSIDE RECORDS SUMMARY | 2024-09-17 15:27 | XMS_ITS | Encounter Summary ---
Author Organization [facility] Address [address] [place] [address] Care Team Providers Care Guard Rail Installer Name Role Phone Remedios Mehta MD Primary Care Provider [phone] Encounter Details Date Type Department Care Team (Late st Contact Info) Description 11/02/2009 Orders Only [facility] Family Medicine [address] [phone] Cathryn Garza, MARIA [address] [place], [place] [phone] Social History Tobacco Use Types Packs/Day Years [...] 10:23 EST Interpreting Group: [facility] [address] [place] [phone] *STUDY CONCLUSIONS* SUMMARY - ??Overall left ventricular [...] BSA: ?1.95 m^2 Referring MD: ??Cathryn Garza Digital Producer: ?? Robbie Mantilla MD: ?? Cathryn Garza Referring MD: ??Remedios Strong MD Attending MD: ??Cathryn Garza *INDICATIONS AND HISTORY* DIAGNOSES SUPPORTING MEDICAL NECESSITY: 780.4 dizziness *PROCEDURE DATA* PROCEDURE INFORMATION: A transthoracic complete 2D study was performed. Additional evaluation included M-mode, complete spectral Doppler, and color Doppler. This was a routine echocardiographic study. This study was interpreted by [facility] at [facility]. The procedure was started at 08:20:06. The [...] mass/height ?1.14 ?? g/cm ?-- LV EF (Rodneyichmatt) ? 65 ? % ? > 55 [...] Note 11/02/2009 Interpreting Group: [facility] [address] [place] [address] *STUDY CONCLUSIONS* SUMMARY - Overall left ventricular systolic function was normal. Leftventricular ejection fraction was estimated to be 65 %. There were no left ventricular regional wall motion abnormalities. - There are no significant valvular abnormalities. *PATIENT PRESENTATION* Height: 60 in ( 152 cm ) S/D Pressure: Weight: 222.64 lb ( 101.2 kg ) BSA: 1.95 m^2 Referring MD: Cathryn Garza Digital Producer: Robbie Mantilla MD: Cathryn Garza Referring MD: Remedios Strong MD Attending MD: Cathryn Garza *INDICATIONS AND HISTORY* DIAGNOSES SUPPORTING MEDICAL NECESSITY: 780.4 dizziness *PROCEDURE DATA* PROCEDURE INFORMATION: A transthoracic complete 2D study was performed. Additional evaluation included M-mode, complete spectral Doppler, and color Doppler. This wasa routine echocardiographic study. [facility]. The procedure was started at 08:20:06. The [...] by Hima Woodard MD Confirmed 02-Nov-2009 10:22:13 us Cathryn SIFUENTES CARDIAC ECHO ORDERABLES Jessica hu Result documented in this encounter Visit Diagnoses Not on filedocumented in this encounter Care Teams Guard Rail Installer Relationship Specialty Start Date End Date Remedios Mehta MD [address] [place] [phone] PCP - General 02/19/09 01/04/15 documented as of this encounter
--- OUTSIDE RECORDS SUMMARY | 2024-09-17 15:27 | XMS_ITS | Encounter Summary ---
Author Organization [facility] Address [address] [place] [address] Care Team Providers Care Program Project Manager Name Role Phone Remedios Mehta MD Primary Care Provider [phone] Encounter Details Date Type Department Care Team (Late st Contact Info) Description 07/16/2009 15:56 EDT - 07/16/2009 23:59 EDT Hospital Encounter [facility] Rheumatology & Immunology - [facility] [address] [place], [place] [phone] Yovana Callejas MD [address] [place] [address] [phone] Discharge Disposition: Home or Self Care Social [...] is within normal limits. Neurologic: 5/5 hand community services officer, negative Tinel's. No thenar atrophy on either [...] today was 40 minutes, over 50% in [id number] counseling. Electronically Signed by Yovana Callejas MD 07/28/2009 14:54 Yovana Callejas MD - Yovana Callejas MD - RIC[facility] Job ID: [id number] Doc ID: [id number] cc: Remedios Strong MD documented in this encounter Plan of Treatment Not on file documented as of this encounter Visit Diagnoses Not on filedocumented in this encounter Care Teams Program Project Manager Relationship Specialty Start Date End Date Remedios Mehta MD [address] [place] [phone] PCP - General 02/19/09 01/04/15 documented as of this encounter
--- OUTSIDE RECORDS SUMMARY | 2024-09-17 15:27 | XMS_ITS | Encounter Summary ---
Author Organization [facility] Address [address] [place] [address] Care Team Providers Care Chamber Magistrate Name Role Phone Remedios Mehta MD Primary Care Provider + [phone] Reason for Visit * Reason Onset Date Comments Pre-op Exam 03/15/2010 Right Total Knee Arthroplasty DOS 6.17.10 Encounter Details Date Type Department Care Team (Late st Contact Info) Description 03/15/2010 Orders Only [facility] Total Joint Program - [address] [place] [address] Yonathan Moreland MD Other specified [...] ORDERABLE S Final Result Performing Organization Address [facility] de Phone Number [facility] [address] [place] [address] * URINALYSIS (03/23/2010 14:53 EDT) Color, UA Yellow [facility] Clarity, UA Clear [facility] Glucose, UA Neg NEG [facility] Bilirubin, UA Neg NEG [facility] Ketones, UA Neg NEG [facility] Specific [place], Urine >1.030 1.001 - 1.035 [facility] Blood, UA Neg NEG [facility] pH, UA 6.0 4.6 - 8.0 [facility] Protein, UA Neg NEG [facility] Urobilinogen, UA 0.2 0.2 - 1.0 E.U./dl [facility] Nitrite, UA Neg NEG [facility] Leuk Esterase Neg NEG [facility] Refractometer SG,Urine 1.026 1.001 - 1.035 [facility] Urine specimen (specimen) 03/23/2010 14:53 EDT 03/23/2010 14:55 EDT us Conchita Garza NP URINALYSIS ORDERABLES Final Resu lt Performing Organization Address [facility] de Phone Number [facility] [address] [place] [address] * BASIC METABOLIC PANEL (03/23/2010 14:53 EDT) Sodium 139 136 - 145 mEq/L [facility] Potassium 4.3 3.5 - 5.0 mEq/L [facility] Chloride 104 96 - 110 mEq/L [facility] CO2 25 24 - 32 mEq/L [facility] BUN 16 10 - 26 mg/dl [...] CHEMISTRY & BLOOD GAS ORDERABLES Final Result [facility] [address] [place] [address] * (ABNORMAL) HEMAGRAM AND DIFFERENTIAL (03/23/2010 14:53 EDT) WBC 8.39 4.0 - 12.4 K/cmm [facility] RBC 4.06 3.86 - 5.04 M/cmm [facility] Hemoglobin 12.6 11.6 - 15.2 gm/dl [facility] HCT 36.4 34.9 - 44.4 % [facility] MCV 89 81 - 98 fl [facility] MCH 30.9 26.7 - 33.3 pg [facility] MCHC 34.5 32.1 - 35.9 gm/dl [...] ABS Eosinophils 0.26 0.03 - 0.61 K/cmm [facility] ABS Basophils 0.14(H) 0.01 - 0.11 K/cmm [facility] Type of Diff: Automated [facility] Blood specimen (specimen) 03/23/2010 14:53 EDT 03/23/2010 14:54 EDT Conchita Garza RAW FINISH MILL OPERATOR PACKAGES & DNA PROBE ORDERABLES Final Result [facility] [address] [place] [address] documented in this encounter Visit Diagnoses Diagnosis Other specified pre-operative examination Localized osteoarthrosis not specified whether primary or secondary, lower leg Pain in joint, lower leg documented in this encounter Care Teams Chamber Magistrate Relationship Specialty Start Date End Date Remedios Mehta MD [address] [place] [phone] PCP - General 02/19/09 01/04/15 documented as of this encounter
--- OUTSIDE RECORDS SUMMARY | 2024-09-17 15:27 | XMS_ITS | Encounter Summary ---
Author Organization [facility] Address [address] [place] [address] Care Team Providers Care Director Of Intercollegiate Athletics Name Role Phone Remedios Mehta MD Primary Care Provider [phone] Encounter Details Date Type Department Care Team (Late st Contact Info) Description 09/30/2009 Abstract [facility] Medicine [address] [address] Remedios Mehta MD [address] [place] [phone] Social History Tobacco Use Types Packs/Day [...] may reflect changes made after this encounter. PREGABALIN (LYRICA ORAL) Take 1 Tab by mouth daily. One tablet nightly, does not remember dose 03/10/2010 added in this encounter Care Teams Director Of Intercollegiate Athletics Relationship Specialty Start Date End Date Remedios Mehta MD [address] [place] [phone] PCP - General 02/19/09 01/04/15 documented as of this encounter
--- OUTSIDE RECORDS SUMMARY | 2024-09-17 15:27 | XMS_ITS | Encounter Summary ---
Author Organization [facility] Address [address] [place] [address] Care Team Providers Care Dedicated Driver Name Role Phone Unavailable Primary Care Provider Unavailabl e Encounter Details Date Type Department Care Team (Latest Contact Info) Description 02/11/2009 12:52 EDT Hospital Encounter [facility] [address] [place] [address] Cathryn Garza, MARIA [address] [place] [address] Discharge Disposition: Auto Discharge Social History Tobacco [...]
--- OUTSIDE RECORDS SUMMARY | 2024-09-17 15:27 | XMS_ITS | Encounter Summary ---
Author Organization [facility] Address [address] [place] [address] Care Team Providers Care Food Court Team Member Name Role Phone Remedios Mehta MD Primary Care Provider +[phone] Encounter Details Date Type Department Care Team (Latest Contact Info) Description 08/13/2009 13:13 EDT - 08/13/2009 23:59 EDT Hospital Encounter [facility] Neurophysiology - [facility] [address] [place], [place] [phone] Unknown, Provider, MD Noé MD Discharge Disposition: Home or Self Care [...] 10 mg by mouth once daily. 0 lovastatin (MEVACOR) 20 mg tablet Take 20 mg by mouth daily. 9 pantoprazole (PROTONIX) 40 mg tablet Take 40 mg by mouth 2 times daily. 0 trazodone (DESYREL) 50 mg tablet Take [...] on filedocumented in this encounter Care Teams Food Court Team Member Relationship Specialty Start Date End Date Remedios Mehta MD [address] [place] [phone] PCP - General 02/19/09 01/04/15 documented as of this encounter
--- OUTSIDE RECORDS SUMMARY | 2024-09-17 15:27 | XMS_ITS | Encounter Summary ---
Author Organization [facility] Address [address] [place] [address] Care Team Providers Care Carton Machine Operator Name Role Phone Remedios Mehta MD Primary Care Provider + -[phone] Encounter Details Date Type Department Care Team (Latest Contact Info) Description 02/10/2010 13:11 EDT - 02/10/2010 23:59 EDT Hospital Encounter [address] [place] [address] Griffin Stearns MD [address] [place] [phone] Discharge Disposition: Auto Discharge Social History [...] 02/03/2010 1 hydroxychloroqui ne (PLAQUENIL) 200 mg tablet Take [...] filedocumented in this encounter Care Teams Carton Machine Operator Relationship Specialty Start Date End Date Remedios Mehta MD [address] [place] [phone] PCP - General 02/19/09 01/04/15 documented as of this encounter
--- OUTSIDE RECORDS SUMMARY | 2024-09-17 15:27 | XMS_ITS | Encounter Summary ---
Author Organization [facility] Address [address] [place] [address] Care Team Providers Care Calender Wind Up Helper Name Role Phone Remedios Mehta MD Primary Care Provider [phone] Encounter Details Date Type Department Care Team (Late st Contact Info) Description 11/22/2009 Orders Only [facility] Family Medicine [address] [address] Cathryn Garza, MARIA [address] [place] [address] Dizziness - light-headed; Headache Social [...] Headache documented in this encounter Care Teams Calender Wind Up Helper Relationship Specialty Start Date End Date Remedios Mehta MD [address] [place] [phone] PCP - General 02/19/09 01/04/15 documented as of this encounter
--- OUTSIDE RECORDS SUMMARY | 2024-09-17 15:27 | XMS_ITS | Encounter Summary ---
Author Organization [facility] Address [address] [place] [address] Care Team Providers Care Youth Program Director Name Role Phone Remedios Mehta MD Primary Care Provider [phone] Encounter Details Date Type Department Care Team (Late st Contact Info) Description 01/25/2010 Orders Only [facility] Sports Medicine Program - [address] [place], [place] [phone] José Miguel Davidson Knee joint pain (Primary [...] the left patellofemoral joint. José Miguel Davidson IM DIAGNOSTIC IMAGING ORDERABLE S Final Result * KNEE 4 OR MORE VIEWS (01/26/2010 [...] the left patellofemoral joint. José Miguel Davidson IMJeff DIAGNOSTIC IMAGING ORDERABLE S Final Result documented in this encounter Visit Diagnoses Diagnosis Knee joint pain- Primary Pain in joint, lower leg documented in this encounter Care Teams Youth Program Director Relationship Specialty Start Date End Date Remedios Mehta MD [address] [place] [phone] PCP - General 02/19/09 01/04/15 documented as of this encounter
--- OUTSIDE RECORDS SUMMARY | 2024-09-17 15:27 | XMS_ITS | Encounter Summary ---
Author Organization [facility] Address [address] [place] [address] Care Team Providers Care Facilities Maintenance Assistant Name Role Phone Remedios Mehta MD Primary Care Provider +1 [phone] Encounter Details Date Type Department Care Team (Late st Contact Info) Description 11/18/2009 Orders Only [facility] Family Medicine [address] [phone] Cathryn Garza, MARIA [address] [place] [address] Social History Tobacco Use Types [...] on filedocumented in this encounter Care Teams Facilities Maintenance Assistant Relationship Specialty Start Date End Date Remedios Mehta MD [address] [place] [phone] PCP - General 02/19/09 01/04/15 documented as of this encounter
--- OUTSIDE RECORDS SUMMARY | 2024-09-17 15:27 | XMS_ITS | Encounter Summary ---
Author Organization [facility] Address [address] [place] [address] Care Team Providers Care Grand Scribe Name Role Phone Remedios Mehta MD Primary Care Provider +1 -[phone] Encounter Details Date Type Department Care Team (Latest Contact Info) Description 07/24/2009 8:19 EDT - 07/24/2009 23:59 EDT Hospital Encounter [facility] [address] [place] [address] Remedios Mehta MD [address] [place] [phone] Discharge Disposition: Home or Self Care [...] or Self Longterm documented in this encounter Plan of Treatment [...] encounter Results * TSH (07/24/2009 8:27 EDT) Pathologist [facility] [place] TSH 1.18 0.35 - 5.00 uIU/ml [facility] Blood specimen (specimen) 07/24/2009 8:27 EDT 07/24/2009 8:29 EDT us Remedios Mehta MD CHEMISTRY & BLOOD GAS ORD ERABLES Final Result Performing Organization Address [facility] de Phone Number [facility] [address] [place] [address] * (ABNORMAL) LIPID PROFILE (07/24/2009 8:27 EDT) [facility] Cholesterol 221 mg/dl [facility] Comment: Desirable:<200 Borderline High:200-239 High:>nr=293 Triglycerides 175(H) 35 - 160 mg/dl [facility] HDL 49 mg/dl [facility] Comment: Low:<40 High(Desirable):>or=60 LDL, Calculated 137 mg/dl [facility] Comment: Optimal:<100 Above optimal:100-129 Borderline High:130-159 High:160-189 Very High:>ce=016 Chol/HDL [facility] 4.5 [facility] Fasting? Yes Performed at [facility], [facility], [place] [facility] Blood specimen (specimen) 07/24/2009 8:27 EDT 07/24/2009 8:29 EDT Remedios Mehta MD CHEMISTRY & BLOOD GAS ORD ERABLES Final Result Performing Organization Address [facility] de Phone Number [facility] [address] [place] [address] * (ABNORMAL) HEMAGRAM (07/24/2009 8:27 EDT) Pathologist [facility] [place] WBC 7.01 4.0 - 12.4 K/cmm [facility] RBC 4.34 3.86 - 5.04 M/cmm [facility] Hemoglobin 13.6 11.6 - 15.2 gm/dl [facility] HCT 38.4 34.9 - 44.4 % [facility] MCV 89 81 - 98 fl [facility] MCH 31.3 26.7 - 33.3 pg [facility] MCHC 35.4 32.1 - 35.9 gm/dl [facility] PLT 330(H) 141 - 320 K/cmm [facility] RDW-CV 10.8(L) 11.7 - 14.6 % [facility] Comment:[facility]formed at [facility] [place], [place] Blood specimen (specimen) 07/24/2009 8:27 EDT 07/24/2009 8:29 EDT us Remedios Mehta MD HEMATOLOGY & PF4 ORDERABL ES Final Result [facility] [address] [place] [address] * COMPREHENSIVE METABOLIC PANEL (07/24/2009 8:27 EDT) Pathologist [facility] [place] Potassium 4.5 3.5 - 5.0 mEq/L [facility] Sodium 145 136 - 145 mEq/L [facility] Chloride 105 96 - 110 mEq/L [facility] CO2 31 24 - 32 mEq/L [facility] Alkaline Phosphatase 71 38 - 126 U/L [facility] Bilirubin, Total 0.8 0.2 - 1.3 mg/dl [facility] AST 20 15 - 46 U/L [facility] ALT 25 9 - 52 U/L [facility] Albumin 4.4 3.4 - 4.9 g/dl [facility] Total Protein 7.0 6.5 - 8.3 g/dl [facility] Creatinine 0.87 0.7 - 1.5 mg/dl [facility] GFR, Calculated >60 ml/min/1. 73m2 [facility] BUN 13 10 - 26 mg/dl [facility] Calcium 9.5 8.5 - 10.5 mg/dl [facility] Calculated Calcium 9.5 8.5 - 10.5 mg/dl [facility] Glucose, Serum 100 70 - 100 mg/dl [facility] Fasting? Yes Performed at [facility] [place], [place] [facility] Blood specimen (specimen) 07/24/2009 8:27 EDT 07/24/2009 8:29 EDT us Remedios Mehta MD CHEMISTRY & BLOOD GAS ORD ERABLES Final Result [facility] [address] [place] [address] documented in this encounter Visit Diagnoses Not on filedocumented in this encounter Care Teams Grand Scribe Relationship Specialty Start Date End Date Remedios Mehta MD [address] [place] [phone] PCP - General 02/19/09 01/04/15 documented as of this encounter
--- OUTSIDE RECORDS SUMMARY | 2024-09-17 15:27 | XMS_ITS | Encounter Summary ---
Author Organization [facility] Address [address] [place] [address] Care Team Providers Care Career Development Associate Name Role Phone Remedios Mehta MD Primary Care Provider +1 [phone] Encounter Details Date Type Department Care Team (Late st Contact Info) Description 01/20/2010 Abstract [facility] - [address] [address] José Miguel Davidson CTS (carpal [...] syndrome documented in this encounter Care Teams Career Development Associate Relationship Specialty Start Date End Date Remedios Mehta MD [address] [place] [phone] PCP - General 02/19/09 01/04/15 documented as of this encounter
--- OUTSIDE RECORDS SUMMARY | 2024-09-17 15:27 | XMS_ITS | Encounter Summary ---
Author Organization [facility] Address [address] [place] [address] Care Team Providers Care Incinerator Attendant Name Role Phone Remedios Mehta MD Primary Care Provider +1 -[phone] Encounter Details Date Type Department Care Team (Late st Contact Info) Description 07/30/2009 Abstract [facility] Medicine [address] [address] Remedios Mehta MD [address] [place] [phone] Myalgia and Myositis; Arthropathy; Asthma; History [...] may reflect changes made after this encounter. MULTIVITAMINS (MULTIVITAMIN ORAL) Take 1 Tab by mouth daily. lubiprostone (AMITIZA) 24 mcg capsule Take 24 mcg by mouth as needed. 09/27/2010 albuterol-ipratr opium (DUONEB) 0.5-2.5 mg/3 mL nebulizer solution Take 3 mL by nebulization every 4 hours as needed for Wheezing. 2 albuterol (ACCUNEB) 0.63 mg/3 mL nebulizer solution Take 0.63 mg by nebulization every 4 hours as needed for Wheezing. 2 duloxetine (CYMBALTA) 20 mg capsule Take 20 mg by mouth 2 times daily. 09/27/2010 1 CALCIUM CARBONATE/VITAMI N D3 (CALCIUM 600 WITH VITAMIN D3 ORAL) Take 600 mg by mouth 2 times daily. 2 albuterol (PROVENTIL, VENTOLIN) 90 mcg/Actuation inhaler Inhale 2 Puffs as directed as needed for Wheezing. 2 fluticasone-salm eterol (ADVAIR DISKUS) 500-50 mcg/Dose diskus inhaler Inhale 1 Puff as directed 2 times daily. 0 lovastatin (MEVACOR) 20 mg tablet Take 20 mg by mouth daily. 9 trazodone (DESYREL) 50 mg tablet Take 1-2 Tabs by mouth at bedtime as needed for Sleep. 0 hydroxychloroqui ne (PLAQUENIL) 200 mg tablet Take 200 mg by mouth 2 times daily. 0 pantoprazole (PROTONIX) 40 mg tablet Take 40 mg by mouth 2 times daily. 0 zafirlukast (ACCOLATE) 20 mg tablet Take 20 mg by mouth 2 times daily. 1 loratadine (CLARITIN) 10 mg tablet Take 10 mg by mouth once daily. 0 added in this encounter Care Teams Incinerator Attendant Relationship Specialty Start Date End Date Remedios Mehta MD [address] [place] [phone] PCP - General 02/19/09 01/04/15 documented as of this encounter
--- OUTSIDE RECORDS SUMMARY | 2024-09-17 15:27 | XMS_ITS | Encounter Summary ---
Author Organization [facility] Address [address] [place] [address] Care Team Providers Care Focused Factory Manager Name Role Phone Remedios Mehta MD Primary Care Provider +1 -[phone] Encounter Details Date Type Department Care Team (Late st Contact Info) Description 10/26/2009 Abstract [facility] Medicine [address] [address] Remedios Mehta MD [address] [place] [phone] Social History Tobacco Use Types Packs/Day [...] may reflect changes made after this encounter. lorazepam (ATIVAN) 0.5 mg Tab Take 0.5 mg by mouth as needed. 03/05/2012 added in this encounter Care Teams Focused Factory Manager Relationship Specialty Start Date End Date Remedios Mehta MD [address] [place] [phone] PCP - General 02/19/09 01/04/15 documented as of this encounter
--- OUTSIDE RECORDS SUMMARY | 2024-09-17 15:27 | XMS_ITS | Encounter Summary ---
Author Organization [facility] Address [address] [place] [address] Care Team Providers Care Real Estate Executive Assistant Name Role Phone Remedios Mehta MD Primary Care Provider +1 -[phone] Encounter Details Date Type Department Care Team (Late st Contact Info) Description 12/07/2009 Abstract [facility] - [address] [address] Sam Griffith MD LBP (low [...] Cervicalgia documented in this encounter Care Teams Real Estate Executive Assistant Relationship Specialty Start Date End Date Remedios Mehta MD [address] [place] [phone] PCP - General 02/19/09 01/04/15 documented as of this encounter
--- OUTSIDE RECORDS SUMMARY | 2024-09-17 15:27 | XMS_ITS | Encounter Summary ---
Author Organization [facility] Address [address] [place] [address] Care Team Providers Care Nut Blanker Operator Name Role Phone Remedios Mehta MD Primary Care Provider +1 -[phone] Reason for Referral * Consult (Emergency) - Closed Specialty Diagnoses / Procedures Referred By Joao proctor Referred To Contact Orthopedic Surgery Diagnoses Right knee pain Remedios Mehta MD Phone: tel: fax: José Miguel Davidson Referral ID Status Reason Start Date Expiration Date V isits Requested Visits Authorized [id number] Closed Specialty Services Required 01/06/2010 1 1 Question Answer Reason for Request: right knee pain, bakers cyst Comments Gone 01/15 - 01/25; would love to be seen before if possible Reason for Visit * Reason Comments Cyst Hall's cyst - Right Knee Obesity Fibromyalgia Hypertension Encounter Details Date Type Department Care Team (Late st Contact Info) Description 01/06/2010 16:00 EST Office Visit [facility] Family Medicine - [address] [address] Remedios Mehta MD [address] [place] [phone] Right knee pain (Primary Dx) Discharge [...] Progress Notes * Remedios Strong MD - 01/07/2010 2218 EST Subjective: Patient ID: Cherelle Husain is [...] strengthening discussed. Offered to refer to a motor pool driver - declined. Reviewed diet/exercise - pt will [...] leg documented in this encounter Care Teams Nut Blanker Operator Relationship Specialty Start Date End Date Remedios Mehta MD [address] [place] [phone] PCP - General 02/19/09 01/04/15 documented as of this encounter
--- OUTSIDE RECORDS SUMMARY | 2024-09-17 15:27 | XMS_ITS | Encounter Summary ---
Author Organization [facility] Address [address] [place] [address] Care Team Providers Care Body Shop Supervisor Name Role Phone Remedios Mehta MD Primary Care Provider +1 -[phone] Encounter Details Date Type Department Care Team (Late st Contact Info) Description 03/16/2009 8:45 EDT - 03/16/2009 23:59 EDT Hospital Encounter [facility] Rheumatology & Immunology - [facility] [address] [place], [place] [phone] Yovana Callejas MD [address] [place] [address] [phone] Discharge Disposition: Auto Discharge Social History Tobacco [...] vesiculations. Straight leg raise is negative. Hand cattle manager is 5/5 bilaterally. Joints: Osteoarthritic changes over [...] Yovana Callejas MD - RICHI Job ID: [id number] Doc ID: [id number] cc: MD Remedios Mejia MD documented in this encounter Plan of Treatment Not on file documented as of this encounter Visit Diagnoses Not on filedocumented in this encounter Care Teams Body Shop Supervisor Relationship Specialty Start Date End Date Remedios Mehta MD [address] [place] [phone] PCP - General 02/19/09 01/04/15 documented as of this encounter
--- OUTSIDE RECORDS SUMMARY | 2024-09-17 15:27 | XMS_ITS | Encounter Summary ---
Author Organization [facility] Address [address] [place] [address] Care Team Providers Care Industrial Safety And Health Manager Name Role Phone Remedios Mehta MD Primary Care Provider +1 -[phone] Encounter Details Date Type Department Care Team (Latest Contact Info) Description 08/18/2009 11:37 EDT - 08/18/2009 23:59 EDT Hospital Encounter [facility] [id number] [place] [address] Remedios Mehta MD [address] [place] [phone] Discharge Disposition: Home or Self Care [...] or Self Residential documented in this encounter Progress Notes * [...] unformatted reports. ? Name: ? CHERELLE HUSAIN L ? Accession #: ? [id number] ? : ? 1960 (Age: 49) ??F ? Collect Date: ? 11/11/2009 ? Location: ? [facility] ? Receive Date: ? 11/11/2009 ? Provider: NAYELI H MAISHA MD ? Copy to: KING A RUCKER [...] Drake)/mpl ? End of Report ? [facility] 11/11/2009 11/11/2009 9:0 8 EST us Nayeli Marx MD PATHOLOGY ORDERABLES Jessica hu Result [facility] [address] [place] [address] documented in this encounter Visit Diagnoses Not on filedocumented in this encounter Care Teams Industrial Safety And Health Manager Relationship Specialty Start Date End Date Remedios Mehta MD [address] [place] [phone] PCP - General 02/19/09 01/04/15 documented as of this encounter
--- OUTSIDE RECORDS SUMMARY | 2024-09-17 15:27 | XMS_ITS | Encounter Summary ---
Author Organization [facility] Address [address] [place] [address] Care Team Providers Care Golf Manager Name Role Phone Remedios Mehta MD Primary Care Provider + -[phone] Encounter Details Date Type Department Care Team (Late st Contact Info) Description 02/24/2009 12:30 EDT - 02/24/2009 23:59 EDT Hospital Encounter [facility] [address] [place] [address] Noemi Gonsalez MD [address] [place] [phone] Social History Tobacco Use Types Packs/Day Years [...] on filedocumented in this encounter Care Teams Golf Manager Relationship Specialty Start Date End Date Remedios Mehta MD [address] [place] [phone] PCP - General 02/19/09 01/04/15 documented as of this encounter
--- OUTSIDE RECORDS SUMMARY | 2024-09-17 15:27 | XMS_ITS | Encounter Summary ---
Author Organization [facility] Address [address] [place] [address] Care Team Providers Care Residential Direct Support Professional Name Role Phone Remedios Mehta MD Primary Care Provider + -[phone] Encounter Details Date Type Department Care Team (Late st Contact Info) Description 06/12/2009 13:18 EDT Hospital Encounter [facility] [address] [place] [address] Manasa Luciano PA-C [address] [place] [address] Discharge Disposition: Home or Self Care [...] filedocumented in this encounter Care Teams Residential Direct Support Professional Relationship Specialty Start Date End Date Remedios Mehta MD [address] [place] [phone] PCP - General 02/19/09 01/04/15 documented as of this encounter
--- OUTSIDE RECORDS SUMMARY | 2024-09-17 15:27 | XMS_ITS | Encounter Summary ---
Author Organization [facility] Address [address] [place] [address] Care Team Providers Care Orthopedic Nurse Practitioner Name Role Phone Remedios Mehta MD Primary Care Provider [phone] Encounter Details Date Type Department Care Team (Latest Contact Info) Description 11/18/2009 Pre-Procedure Orders Encounter [address] [phone] Cathryn Garza, MARIA [address] [place] [address] Dizziness - light-headed; Headache Social History [...] Headache documented in this encounter Care Teams Orthopedic Nurse Practitioner Relationship Specialty Start Date End Date Remedios Mehta MD [address] [place] [phone] PCP - General 02/19/09 01/04/15 documented as of this encounter
--- OUTSIDE RECORDS SUMMARY | 2024-09-17 15:27 | XMS_ITS | Encounter Summary ---
Author Organization [facility] Address [address] [place] [address] Care Team Providers Care Bilingual Manager Name Role Phone Remedios Mehta MD Primary Care Provider +1 -[phone] Encounter Details Date Type Department Care Team (Late st Contact Info) Description 06/12/2009 Orders Only [facility] Family Medicine [address] [phone] Manasa Luciano PA-C [facility] [address] [place] [address] Social History Tobacco Use Types [...] were discussed with the patient by the labour market economist at the time of the examination. Overall [...] were discussed with the patient by the labour market economist at the time of the examination. Overall assessment: Negative. The patient will also be notified of her/his breast imaging results via a lay letter from Radiology. Radiology will contact the patient directly regarding any findings which require additional imaging (Category 0) at this time. us Manasa Luciano PA-C IMG US ORDERABLES F inal Result * [facility] (06/12/2009 [...] were discussed with the patient by the labour market economist at the time of the examination. Overall [...] were discussed with the patient by the labour market economist at the time of the examination. Overall assessment: Negative. The patient will also be notified of her/his breast imaging results via a lay letter from Radiology. Radiology will contact the patient directly regarding any findings which require additional imaging (Category 0) at this time. Manasa Luciano PA-C IMG MAMMOGRAPHY ORD ERABLES Final Result documented in this encounter Visit Diagnoses Not on filedocumented in this encounter Care Teams Bilingual Manager Relationship Specialty Start Date End Date Remedios Mehta MD [address] [place] [phone] PCP - General 02/19/09 01/04/15 documented as of this encounter
--- OUTSIDE RECORDS SUMMARY | 2024-09-17 15:27 | XMS_ITS | Encounter Summary ---
Author Organization [facility] Address [address] [place] [address] Care Team Providers Care Motor Equipment Captain Name Role Phone Remedios Mehta MD Primary Care Provider + -[phone] Encounter Details Date Type Department Care Team (Late st Contact Info) Description 06/12/2009 13:18 EDT Hospital Encounter [facility] [address] [place] [address] Manasa Luciano PA-C [address] [place] [address] Discharge Disposition: Home or Self Care [...] or Self Correction documented in this encounter Plan of Treatment Not on file documented as of this encounter Visit Diagnoses Not on filedocumented in this encounter Care Teams Motor Equipment Captain Relationship Specialty Start Date End Date Remedios Mehta MD [address] [place] [phone] PCP - General 02/19/09 01/04/15 documented as of this encounter
--- OUTSIDE RECORDS SUMMARY | 2024-09-17 15:27 | XMS_ITS | Encounter Summary ---
Author Organization [facility] Address [address] [place] [address] Care Team Providers Care Newspaper Correspondent Name Role Phone Remedios Mehta MD Primary Care Provider +1 -[phone] Reason for Referral * Consult, Test and Treat (Routine) - Closed Specialty Diagnoses / Procedures Referred By Joao proctor Referred To Contact Physical Therapy Diagnoses Obesity Osteoarthritis Fibromyalgia Remedios Mehta MD Phone: tel: fax: Referral ID Status Reason Start Date Expiration Date Visits Requested Visits Authorized [id number] Closed Patient Preference 03/10/2010 1 1 Question Answer Reason for Request: 49 yo woman with severe OA (pre-op for knee replacement) needing PT for weight loss as well as OA Comments PT PREFERS [facility] IN [place] Reason for Visit * Reason Comments Obesity need weight plan Knee Pain right knee pain and swelling follow up Hypertension follow up Hyperlipidemia Encounter Details Date Type Department Care Team (Late st Contact Info) Description 03/10/2010 17:30 EDT Office Visit [facility] Medicine [address] [address] Remedios Mehta MD [address] [place] [phone] Fibromyalgia; Osteoarthritis; Obesity; Hypertension; Asthma Social [...] from the original note were not included. [facility] Patient Instructions Body Mass Index: After Your [...] Where can you learn more? Go to www.FPSI.net/fahc Enter S176 in the search box to learn more about Body Mass Index: After Your Visit. ?? 2005 - 2008 [employer]. Care instructions adapted under license by [facility], Inc . This care instruction is for use with your licensed healthcare professional. If you have questions about a medical condition or this instruction, always ask your healthcare professional. [facility] disclaims any warranty or liability for your use of this information. [facility] Patient Instructions Starting a [...] about seeing a registered dietitian or an training specialist. It can be a big challenge [...] make healthy changes in your diet. An training specialist or appraiser personal property can help you develop a safe and [...] After Your Visit. ?? 2005 - 2008 [employer]. Care instructions adapted under license by [facility], [facility] . This care instruction is for use with your licensed healthcare professional. If you have questions about a medical condition or this instruction, always ask your healthcare professional. [employer] disclaims any warranty or liability for your use of this information. documented in this encounter Ordered Prescriptions Prescription Sig Dispense Quantity Refills Last Filled Start Date End Date metoprolol (LOPRESSOR) 25 mg tabletIndications:H ypertension Take 1 Tab by mouth 2 times daily. 180 Tab 4 03/10/2010 03/30/2011 pregabalin (LYRICA) 25 mg capsuleIndications: Fibromyalgia,Osteoa rthritis,Obesity Take 1 Cap by mouth 3 times [...] Has a daughter, , who lives in [place] with one son, Rickey, now 4 weeks [...] Remedios Strong M.D. Family Medicine Attending Bp# [id number] * Argelia Farias RN - 03/10/2010 1824 [...] 03/10/2010 documented in this encounter Care Teams Newspaper Correspondent Relationship Specialty Start Date End Date Remedios Mehta MD [address] [place] [phone] PCP - General 02/19/09 01/04/15 documented as of this encounter
--- OUTSIDE RECORDS SUMMARY | 2024-09-17 15:27 | XMS_ITS | Encounter Summary ---
Author Organization [facility] Address [address] [place] [address] Care Team Providers Care Oracle Business Analyst Name Role Phone Unavailable Primary Care Provider Unavailabl e Encounter Details Date Type Department Care Team (Late st Contact Info) Description 01/12/2009 8:51 EDT - 01/12/2009 11:[address] [facility] [address] [place] [address] Yovana Callejas MD [address] [place] [address] [phone] Discharge Disposition: Auto Discharge Social [...]
--- OUTSIDE RECORDS SUMMARY | 2024-09-17 15:27 | XMS_ITS | Encounter Summary ---
Author Organization [facility] Address [address] [place] [address] Care Team Providers Care School Curriculum Developer Name Role Phone Remedios Mehta MD Primary Care Provider [phone] Reason for Visit * Reason Comments Pre-op Exam 03/02/10, vitaly hu surgery on Left wrist/hand Rash rash under both jazmin sts, itchy and painful Encounter Details Date Type Department Care Team (Late st Contact Info) Description 02/17/2010 16:00 EDT Office Visit [facility] Medicine [address] [id number] Cathryn Garza, MARIA [address] [place], [place] [id number] Rash; Preop examination; Allergic rhinitis; Arthropathy Social [...] Date End Date hydroxychloroquine (PLAQUENIL) 200 mg tabletIndications: Arthropathy Take 1 Tab by mouth 2 times daily. 60 Tab 11 02/17/2010 1 loratadine (CLARITIN) 10 mg tabletIndications: Allergic rhinitis Take 1 Tab by mouth daily. 30 Tab 11 02/17/2010 1 ketoconazole (NIZORAL) 2 % creamIndications:R john Apply topically daily. Apply to affect area(s) as directed. 1 Tube 1 02/17/2010 1 documented in this encounter Progress Notes * Cathryn Garza - 02/17/2010 1632 EDT Subjective: Cherelle Husain is a 49 y.o. female who presents to the office today for a preoperative consultationat the request of Dr. Black, who will perform a Left carpal tunnel release on March 02, 2010 at [facility].Current Complaints: left hand numbness, tingling, and [...] as of this encounter Care Teams School Curriculum Developer Relationship Specialty Start Date End Date Remedios Mehta MD [address] [place] [phone] PCP - General 02/19/09 01/04/15 documented as of this encounter
--- OUTSIDE RECORDS SUMMARY | 2024-09-17 15:28 | XMS_ITS | Encounter Summary ---
Author Organization [facility] Address [address] [place] [address] Care Team Providers Care Web Site Developer Name Role Phone Unavailable Primary Care Provider Unavailabl e Encounter Details Date Type Department Care Team (Latest Contact Info) Description 10/07/2008 8:25 EST - 10/07/2008 11:59 EST Hospital Encounter [facility] conversion [address] [place] [address] Sam Griffith MD Discharge Disposition: Auto Discharge [...]
--- OUTSIDE RECORDS SUMMARY | 2024-09-17 15:28 | XMS_ITS | Encounter Summary ---
Author Organization [facility] Address [address] [place] [address] Care Team Providers Care Raw Mill Operator Name Role Phone Unavailable Primary Care Provider Unavailabl e Encounter Details Date Type Department Care Team (Late st Contact Info) Description 12/11/2006 10:03 EST - 12/11/2006 11:[address] [facility] [address] [place] [address] Yovana Callejas MD [address] [place] [address] [phone] Discharge Disposition: Auto Discharge Social [...]
--- OUTSIDE RECORDS SUMMARY | 2024-09-17 15:28 | XMS_ITS | Encounter Summary ---
Author Organization [facility] Address [address] [place] [address] Care Team Providers Care Home Service Demonstrator Name Role Phone Remedios Mehta MD Primary Care Provider + -[phone] Encounter Details Date Type Department Care Team (Late st Contact Info) Description 10/03/2006 Before PRISM Converted Visit (Maple) [facility] - [facility] conversion [address] [place] [address] Yovana Callejas MD [address] [place] [address] [phone] Social History Tobacco Use Types [...] Mood has been good. Recently traveled to [place] and felt very well while visiting and is contemplating moving there care home. PHYSICAL EXAMINATION: Height: 4 foot 11- 3/4 [...] Signed by Yovana Callejas MD 10/09/2006 09:45 Myron Callejas [facility] Cal[facility] MD Yovana Callejas MD - Gerri Callejas MD P - O1 Job ID: [id number] Document ID: [id number] cc: Remedios Strong MD documented in this encounter Plan of Treatment Not on file documented as of this encounter Visit Diagnoses Not on filedocumented in this encounter Care Teams Home Service Demonstrator Relationship Specialty Start Date End Date Remedios Mehta MD [address] [place] [phone] PCP - General 02/19/09 01/04/15 documented as of this encounter
--- OUTSIDE RECORDS SUMMARY | 2024-09-17 15:28 | XMS_ITS | Encounter Summary ---
Author Organization [facility] Address [address] [place] [address] Care Team Providers Care Program Clerk Name Role Phone Remedios Mehta MD Primary Care Provider + -[phone] Encounter Details Date Type Department Care Team (Late st Contact Info) Description 12/22/2005 Before PRISM Converted Visit (Maple) [facility] - [place] conversion [address] [place] [address] Yovana Callejas MD [address] [place] [address] [phone] Social History Tobacco Use Types [...] nontender. Gait: Within normal limits. Neurologic: Hand cement grinding mill operator 5/5, shoulder abduction 5/5 and hip flexion [...] Signed by Yovana Callejas MD 12/27/2005 14:13 Myron Callejas, Jens Callejas MD Yovana Callejas MD - Yovana Callejas MD A - AM Job ID: [id number] Document ID: [id number] cc: Remedios Strong MD cc: Remedios Strong MD documented in this encounter Plan of Treatment Not on file documented as of this encounter Visit Diagnoses Not on filedocumented in this encounter Care Teams Program Clerk Relationship Specialty Start Date End Date Remedios Mehta MD [address] [place] [phone] PCP - General 02/19/09 01/04/15 documented as of this encounter
--- OUTSIDE RECORDS SUMMARY | 2024-09-17 15:28 | XMS_ITS | Encounter Summary ---
Author Organization [facility] Address [address] [place] [address] Care Team Providers Care Regional Extension Service Specialist Name Role Phone Remedios Mehta MD Primary Care Provider + -[phone] Encounter Details Date Type Department Care Team (Late st Contact Info) Description 09/12/2008 Before PRISM Converted Visit (Maple) [facility] - Maple conversion [address] [place] [address] Yovana Callejas MD [address] [place] [address] [phone] Social History Tobacco Use Types Packs/Day Years Used Date Smoking Tobacco: Never Assessed Comments Unknown Sex and Gender Information Value Date Recorded Sex Assigned at Not on file Legal Sex Female 17:25 EST Gender Identity Female 2021 11:19 EDT Sexual Orientation Not on file documented as of this encounter Progress Notes * Yovana Callejas MD - 05/23/2009 4584 EDT DIVISION OF RHEUMATOLOGY PROGRESS/FOLLOWUP NOTE - [...] Yovana Callejas MD - RICHI Job ID: [id number] Doc ID: [id number] cc: Remedios Strong MD documented in this encounter Plan of Treatment Not on file documented as of this encounter Visit Diagnoses Not on filedocumented in this encounter Care Teams Regional Extension Service Specialist Relationship Specialty Start Date End Date Remedios Mehta MD [address] [place] [phone] PCP - General 02/19/09 01/04/15 documented as of this encounter
--- OUTSIDE RECORDS SUMMARY | 2024-09-17 15:28 | XMS_ITS | Encounter Summary ---
Author Organization [facility] Address [address] [place] [address] Care Team Providers Care Credit Collections Manager Name Role Phone Unavailable Primary Care Provider Unavailabl e Encounter Details Date Type Department Care Team (Late st Contact Info) Description 08/04/2008 13:12 EDT Hospital Encounter [facility] conversion [address] [place] [address] Cathryn Garza, PA [address] [place], [place] [address] Social History Tobacco Use Types Packs/Day Years [...]
--- OUTSIDE RECORDS SUMMARY | 2024-09-17 15:28 | XMS_ITS | Encounter Summary ---
Author Organization [facility] Address [address] [place] [address] Care Team Providers Care Navy Fighter Pilot Name Role Phone Remedios Mehta MD Primary Care Provider + -[phone] Encounter Details Date Type Department Care Team (Late st Contact Info) Description 08/30/2005 Office Visit [facility] conversion [address] [place] [address] Willis Dominguez MD [address] [facility], [address] [place] [address] Social History Tobacco Use Types [...] recently in the office. (Seen by PCP claritza, had pelvic exam with cultures obtained, sent for u/s and scope yesterday that showed a small fibroid and thickened uterine lining, told to come to ED today for eval and to see GAS SYSTEM OPERATOR). REVIEW OF SYSTEMS No nausea, vomiting, diarrhea, [...] AND PROCEDURES E.D. Course: Pt seen by GAS SYSTEM OPERATOR - HCT increased from prior, cleared for discharge, to [facility] Discussed case with physician GAS SYSTEM OPERATOR resident 19:20 Disposition: Discharged home. Condition: good. [...] substitute OK. Follow-up: Follow up with a paving and surfacing labourer [facility] [phone], call for appointment (Electronically signed by Willis Dominguez MD 08/30/2005 21:14) Addenda for NORRISGILLIANPATRICE: [id number] VisitID: [id number] Date: 08/30/2005 08/30/2005 18:29 PT COMING FROM [facility] FOR VAGINAL BLEEDING. TO BE SEEN IN [...] PAIN (2 mo). Pain level now:02/06. Treatment ORACLE FUSION DEVELOPER: Recently seen in the office; seen for [...] Brakes of bed on. --1900 [place] (GAS SYSTEM OPERATOR MD in for pelvic). --1957 Elise Jane R.N. IV / I&O Flowsheet IV line accessed- blood drawn and (from left AC, purple to lab). --1957 Elise Jane R.N. DISPOSITION / DISCHARGE Condition at departure: stable. No barriers to learning present. Discharge instructions reviewed with the patient. Warnings reviewed. Reviewed medication. Treatments reviewed. Reviewed referrals. Patient verbalized understanding. Written instructions provided in Polish. (Pt to f/u with MD at clinic.). The patient was discharged home. The patient left the Emergency Department ambulatory and via private vehicle. Patient driving. --2104 Lyla Lawrence R.N., E.M.T. Joanne Lalime R.N. Daryl Holthoff, R.N. Locked/Released at 08/31/2005 12:21 by [place] R.N. documented in this encounter Plan of Treatment Not on file documented as of this encounter Visit Diagnoses Not on filedocumented in this encounter Care Teams Navy Fighter Pilot Relationship Specialty Start Date End Date Remedios Mehta MD [address] [place] [phone] PCP - General 02/19/09 01/04/15 documented as of this encounter
--- OUTSIDE RECORDS SUMMARY | 2024-09-17 15:28 | XMS_ITS | Encounter Summary ---
Author Organization [facility] Address [address] [place] [address] Care Team Providers Care Marketing Summer Intern Name Role Phone Unavailable Primary Care Provider Unavailabl e Encounter Details Date Type Department Care Team (Late st Contact Info) Description 04/20/2006 8:59 EDT Hospital Encounter [facility] conversion [address] [place] [address] Remedios Mehta MD [address] [place] [phone] Social History Tobacco Use Types Packs/Day [...] 143( 4 11:54 EDT) No Emily Gibson, DRAGGER documented as of this encounter Procedures Procedure [...] 16:54 EDT Wale Garcia MD CHEMISTRY & BLOOD GAS O RDERABLES Final Result Performing Organization Address [facility] de Phone Number [facility] [address] [place] [address] * GLUCOSE, SERUM (04/20/2006 9:16 EDT) Glucose, Serum 79 70 - 100 mg/dl [facility] 04/20/2006 9:16 EDT 04/20/2006 16:54 EDT Wale Garcia MD CHEMISTRY & BLOOD GAS O RDERABLES Final Result Performing Organization Address [facility] Co de Phone Number [facility] [address] [place] [address] * LIPID PROFILE (INCLUDES CHOLESTEROL, TRIGLYCERIDES, HDL, LDL) (04/20/2006 9:16 EDT) Cholesterol 223 mg/dl [facility] Comment: Desirable:<200 Borderline:200-239 High Risk:>pr=031 Triglycerides 119 35 - 160 mg/dl [facility] HDL 49 mg/dl [facility] Comment: Highly Desirable:>60 Desirable:35-60 High Risk:<35 LDL, Calculated 150 mg/dl [facility] Comment: Desirable:<130 Borderline:130-159 High Risk:>jf=201 Chol/HDL Ratio 4.6 [facility] Fasting? Yes [facility] 04/20/2006 9:16 EDT 04/20/2006 16:54 EDT Wale Garcia MD CHEMISTRY & BLOOD GAS O RDERABLES Final Result Performing Organization Address [facility] de Phone Number [facility] [address] [place] [address] * HEMOGLOBIN A1C (04/20/2006 9:16 EDT) Hemoglobin A1C 5.6 % [facility] Comment: Reference Range: <6% Normal Range <7% Recommended goal by ADA guidelines 7-8% Suboptimal by ADA guidelines >8% Further action suggested by ADA guidelines 04/20/2006 9:16 EDT 04/20/2006 16:54 EDT Wale Garcia MD CHEMISTRY & BLOOD GAS O RDERABLES Final Result Performing Organization Address [facility] de Phone Number [facility] [address] [place] [address] documented in this encounter Visit Diagnoses Not on filedocumented in this encounter Additional Health Concerns Infection Onset Date Last Indicated Resolved Time Rule-Out C. difficile 2021 04/16/20212020 13:40 EDT C. difficile 04/16/2021 04/16/2021 06/15/2021 22:1 5 EDT documented as of this encounter
--- OUTSIDE RECORDS SUMMARY | 2024-09-17 15:28 | XMS_ITS | Encounter Summary ---
Author Organization [facility] Address [address] [place] [address] Care Team Providers Care Dopeman Name Role Phone Unavailable Primary Care Provider Unavailabl e Encounter Details Date Type Department Care Team (Late st Contact Info) Description 12/12/2006 11:[address] [facility] [address] [place] [address] Remedios Mehta MD [address] [place] [phone] Social History Tobacco Use Types Packs/Day [...]
--- OUTSIDE RECORDS SUMMARY | 2024-09-17 15:28 | XMS_ITS | Encounter Summary ---
Author Organization [facility] Address [address] [place] [address] Care Team Providers Care Compressor Engineer Name Role Phone Unavailable Primary Care Provider Unavailabl e Encounter Details Date Type Department Care Team (Late st Contact Info) Description 11/11/2005 9:59 EST Hospital Encounter [facility] conversion [address] [place] [address] Madhu Liu MD [address] [place] [phone] Social History Tobacco Use Types Packs/Day [...]
--- OUTSIDE RECORDS SUMMARY | 2024-09-17 15:28 | XMS_ITS | Encounter Summary ---
Author Organization [facility] Address [address] [place] [address] Care Team Providers Care Production Director Name Role Phone Unavailable Primary Care Provider Unavailabl e Encounter Details Date Type Department Care Team (Late st Contact Info) Description 03/21/2007 15:45 EDT [facility] [address] [place] [address] Yovana Callejas MD [address] [place] [address] [phone] Social History Tobacco Use Types [...]
--- OUTSIDE RECORDS SUMMARY | 2024-09-17 15:28 | XMS_ITS | Encounter Summary ---
Author Organization [facility] Address [address] [place] [address] Care Team Providers Care Informatics Application Analyst Name Role Phone Remedios Mehta MD Primary Care Provider + -[phone] Encounter Details Date Type Department Care Team (Late st Contact Info) Description 07/11/2005 Before PRISM Converted Visit (Maple) [facility] - [place] conversion [address] [place] [address] Yovana Callejas MD [address] [place] [address] [phone] Social History Tobacco Use Types [...] boot on the left. Neurologic: 5/5 hand survey methodologist, shoulder abduction, negative Tinel, joint tenderness over [...] Signed by Yovana Callejas MD 07/20/2005 12:10 Jens Alonso MD Yovana Callejas MD - Yovana Callejas MD A - BB Job ID: [id number] Document ID: [id number] cc: MD Remedios Garcia MD documented in this encounter Plan of Treatment Not on file documented as of this encounter Visit Diagnoses Not on filedocumented in this encounter Care Teams Informatics Application Analyst Relationship Specialty Start Date End Date Remedios Mehta MD [address] [place] [phone] PCP - General 02/19/09 01/04/15 documented as of this encounter
--- OUTSIDE RECORDS SUMMARY | 2024-09-17 15:28 | XMS_ITS | Encounter Summary ---
Author Organization [facility] Address [address] [place] [address] Care Team Providers Care Meter Attendant Name Role Phone Remedios Mehta MD Primary Care Provider [phone] Encounter Details Date Type Department Care Team (Late st Contact Info) Description 12/16/2005 Before PRISM Converted Visit (Maple) [facility] - [facility] conversion [address] [place] [address] MD [address] [place] [address] Social History Tobacco Use Types Packs/Day Years Used Date Smoking Tobacco: Never Assessed Comments Unknown Sex and Gender Information Value Date Recorded Sex Assigned at Not on file Legal Sex Female 17:25 EST Gender Identity Female 2021 11:19 EDT Sexual Orientation Not on file documented as of this encounter Progress Notes * Senthil, Conv Senior Storage Administrator - 12/31/2009 4416 EST DIVISION OF PULMONOLOGY PROGRESS/FOLLOWUP NOTE - [...] Lane MD P - do Job ID: [id number] Document ID: [id number] cc: Remedios Strong MD documented in this encounter Plan of Treatment Not on file documented as of this encounter Visit Diagnoses Not on filedocumented in this encounter Care Teams Meter Attendant Relationship Specialty Start Date End Date Remedios Mehta MD [address] [place] [phone] PCP - General 02/19/09 01/04/15 documented as of this encounter
--- OUTSIDE RECORDS SUMMARY | 2024-09-17 15:28 | XMS_ITS | Encounter Summary ---
Author Organization [facility] Address [address] [place] [address] Care Team Providers Care Adoption Social Worker Name Role Phone Unavailable Primary Care Provider Unavailabl e Encounter Details Date Type Department Care Team (Latest Contact Info) Description 02/08/2006 9:05 EDT - 02/08/2006 11:59 EDT Hospital Encounter [address] [address] Remedios Mehta MD [address] [place] [phone] Discharge Disposition: Auto Discharge Social History [...] OVERALL ASSESSMENT - NEGATIVE END OF IMPRESSION us Remedios Mehta MD IMG MAMMOGRAPHY ORDERABLE S Final Result documented in this encounter Visit Diagnoses Not on filedocumented in this encounter
--- OUTSIDE RECORDS SUMMARY | 2024-09-17 15:28 | XMS_ITS | Encounter Summary ---
Author Organization [facility] Address [address] [place] [address] Care Team Providers Care Post Office Manager Name Role Phone Remedios Mehta MD Primary Care Provider + -[phone] Encounter Details Date Type Department Care Team (Late st Contact Info) Description 01/12/2009 Before PRISM Converted Visit (Maple) [facility] - [place] conversion [address] [place] [address] Yovana Callejas MD [address] [place] [address] [phone] Social History Tobacco Use Types [...] within normal limits. Neurologic: Alert, oriented. Hand branch service specialist 5 out of 5. No then ar [...] Yovana Callejas MD - RICHI Job ID: [id number] Doc ID: [id number] cc: Remedios Strong MD documented in this encounter Plan of Treatment Not on file documented as of this encounter Visit Diagnoses Not on filedocumented in this encounter Care Teams Post Office Manager Relationship Specialty Start Date End Date Remedios Mehta MD [address] [place] [phone] PCP - General 02/19/09 01/04/15 documented as of this encounter
--- OUTSIDE RECORDS SUMMARY | 2024-09-17 15:28 | XMS_ITS | Encounter Summary ---
Author Organization [facility] Address [address] [place] [address] Care Team Providers Care Research Assistant Name Role Phone Unavailable Primary Care Provider Unavailabl e Encounter Details Date Type Department Care Team (Latest Contact Info) Description 10/01/2008 15:39 EST Hospital Encounter [facility] - [facility] conversion [address] [place] [address] Cathryn Garza, MARIA [address] [place] [address] Discharge Disposition: Auto Discharge Social History Tobacco [...]
--- OUTSIDE RECORDS SUMMARY | 2024-09-17 15:28 | XMS_ITS | Encounter Summary ---
Author Organization [facility] Address [address] [place] [address] Care Team Providers Care Cvt Rn Name Role Phone Unavailable Primary Care Provider Unavailabl e Encounter Details Date Type Department Care Team (Late st Contact Info) Description 05/26/2008 11:31 EDT Hospital Encounter [facility] conversion [address] [place] [address] Remedios Mehta MD [address] [place] [phone] Social History Tobacco Use Types Packs/Day [...]
--- OUTSIDE RECORDS SUMMARY | 2024-09-17 15:28 | XMS_ITS | Encounter Summary ---
Author Organization [facility] Address [address] [place] [address] Care Team Providers Care Research Environmental Scientist Name Role Phone Remedios Mehta MD Primary Care Provider + -[phone] Encounter Details Date Type Department Care Team (Late st Contact Info) Description 07/17/2008 Before PRISM Converted Visit (Maple) [facility] - [facility] conversion [address] [place] [address] Sam Griffith MD Social History Tobacco Use Types Packs/Day Years Used Date Smoking Tobacco: Never Assessed Comments Unknown Sex and Gender Information Value Date Recorded Sex Assigned at Not on file Legal Sex Female 17:25 EST Gender Identity Female 2021 11:19 EDT Sexual Orientation Not on file documented as of this encounter Consult Notes * Sam Griffith MD - 05/23/2009 1253 EDT [facility] [address] [place] [phone] CONSULTATION - 07/17/2008 July 17, 2008 Remedios Strong MD [address] Strong: I want to further evaluate Janiya for her neck, back, and lower extremity [...] may be a candidate for the functional judaism program [facility]. I will make that determination after seeing the MRIs. Thanks for asking us to see Cherelle at the [facility]. Sincerely, Primary Care Provider: Remedios Strong MD [...] before that. Cherelle moved back here to [place] in February. In [place] she was treating with a chiropractor three times a week for a year. She did not notice any particular help. She did see a chiropractor in [place] this past spring, who did not recommend [...] She is living with her son and [id number] and granddaughter. Cherelle last worked in February [...] may be a candidate for the functional judaism program at [facility] but the MRIs are important to get before we can make that determination. Continuing with pain management as Dr. Strong sees indicated is my recommendation. I do not think further treatment with therapy or chiropractic treatment will help. Signed by Sam Griffith MD 07/24/2008 12:48 Sam Griffith MD - Sam Griffith MD - JTB Job ID: [id number] Doc ID: [id number] cc: Remedios Strong MD documented in this encounter Plan of Treatment Not on file documented as of this encounter Visit Diagnoses Not on filedocumented in this encounter Care Teams Research Environmental Scientist Relationship Specialty Start Date End Date Remedios Mehta MD [address] [place] [phone] PCP - General 02/19/09 01/04/15 documented as of this encounter
--- OUTSIDE RECORDS SUMMARY | 2024-09-17 15:28 | XMS_ITS | Encounter Summary ---
Author Organization [facility] Address [address] [place] [address] Care Team Providers Care Director Hris Name Role Phone Unavailable Primary Care Provider Unavailabl e Encounter Details Date Type Department Care Team (Late st Contact Info) Description 05/15/2008 15:10 EDT Hospital [facility] [address] [place] [address] Yovana Callejas MD [address] [place] [address] [address] Social History Tobacco Use Types [...]
--- OUTSIDE RECORDS SUMMARY | 2024-09-17 15:28 | XMS_ITS | Encounter Summary ---
Author Organization [facility] Address [address] [place] [address] Care Team Providers Care Core Sticker Name Role Phone Unavailable Primary Care Provider Unavailabl e Encounter Details Date Type Department Care Team (Late st Contact Info) Description 09/07/2005 14:19 EST Hospital Encounter [facility] [address] [place] [address] David Rehman MD [address] [facility] [place] [address] Social History Tobacco Use Types Packs/Day Years [...]
--- OUTSIDE RECORDS SUMMARY | 2024-09-17 15:28 | XMS_ITS | Encounter Summary ---
Author Organization [facility] Address [address] [place] [address] Care Team Providers Care Powerhouse Oiler Name Role Phone Unavailable Primary Care Provider Unavailabl e Encounter Details Date Type Department Care Team (Late st Contact Info) Description 10/06/2005 10:44 EST - 10/06/2005 11:59 EST Hospital Encounter [facility] [address] [place] [address] Yovana Callejas MD [address] [place] [address] [address] Discharge Disposition: Auto Discharge Social [...]
--- OUTSIDE RECORDS SUMMARY | 2024-09-17 15:28 | XMS_ITS | Encounter Summary ---
Author Organization [facility] Address [address] [place] [address] Care Team Providers Care Striping Machine Operator Name Role Phone Unavailable Primary Care Provider Unavailabl e Encounter Details Date Type Department Care Team (Latest Contact Info) Description 06/09/2006 11:48 EDT - 06/09/2006 11:59 EDT Hospital Encounter [facility] [address] [place] [address] Brook Cifuentes MD [address] [place] [address] Discharge Disposition: Auto Discharge Social History Tobacco [...]
--- OUTSIDE RECORDS SUMMARY | 2024-09-17 15:28 | XMS_ITS | Encounter Summary ---
Author Organization [facility] Address [address] [place] [address] Care Team Providers Care Ore Digger Name Role Phone Unavailable Primary Care Provider Unavailabl e Encounter Details Date Type Department Care Team (Latest Contact Info) Description 08/30/2005 18:28 EST Hospital Encounter [facility] Emergency Department - [facility] [address] [place] [address] Emergency, Default, MD Discharge Disposition: Home or [...] 08/30/2005 19:5 5 EST 08/30/2005 20:12 EST us Default Emergency PACKAGES & DNA PROBE ORDERA BLES Final Result [facility] [address] [place] [address] documented in this encounter Visit Diagnoses Not on filedocumented in this encounter
--- OUTSIDE RECORDS SUMMARY | 2024-09-17 15:28 | XMS_ITS | Encounter Summary ---
Author Organization [facility] Address [address] [place] [address] Care Team Providers Care Principal Military Analyst Name Role Phone Remedios Mehta MD Primary Care Provider [phone] Encounter Details Date Type Department Care Team (Late st Contact Info) Description 09/15/2005 Results Only [facility] - [facility] [address] [place], [place] [address] Christian Rehman MD [address] [facility] [place], [place] [id number] Social History Tobacco Use Types Packs/Day Years [...] ? CHERELLE HUSAIN ? Accession #: ? [id number] ? : ? 1960 (Age: 45) ??F ? Collect Date: ? 09/15/2005 ? Location: ? [facility] ? Receive Date: ? 09/15/2005 ? Provider: CHRISTIAN REHMAN MD Copy to: ? Final Pathologic Diagnosis: [...] submitted in one cassette following filtration. ??(Pipo Drake)/[facility] End of Report [facility] 09/15/2005 09/15/2005 8:4 4 EST us Christian Rehman MD PATHOLOGY ORDERABLES Final Res ult [facility] [address] [place] [address] documented in this encounter Visit Diagnoses Not on filedocumented in this encounter Care Teams Principal Military Analyst Relationship Specialty Start Date End Date Remedios Mehta MD [address] [place] [phone] PCP - General 02/19/09 01/04/15 documented as of this encounter
--- OUTSIDE RECORDS SUMMARY | 2024-09-17 15:28 | XMS_ITS | Encounter Summary ---
Author Organization [facility] Address [address] [place] [address] Care Team Providers Care Gas Regulator Repairer Name Role Phone Remedios Mehta MD Primary Care Provider + [phone] Encounter Details Date Type Department Care Team (Late st Contact Info) Description 10/06/2005 Before PRISM Converted Visit (Maple) [facility] - [place] conversion [address] [place] [address] Yovana Callejas MD [address] [place] [address] [phone] Social History Tobacco Use Types Packs/Day Years Used Date Smoking Tobacco: Never Assessed Comments Unknown Sex and Gender Information Value Date Recorded Sex Assigned at Not on file Legal Sex Female 17:25 EST Gender Identity Female 2021 11:19 EDT Sexual Orientation Not on file documented as of this encounter Progress Notes * Yvoana Callejas MD - 12/31/2009 0350 EST DIVISION [...] has been in physical therapy in the pool for her myofascial pain syndrome and these [...] is within normal limits. NEUROLOGIC: 5/5 hand clinical cytopathologist, shoulder abduction, and hip flexion. On joint [...] Signed by Yovana Callejas MD 10/17/2005 17:08 Jens Alonso MD Yovana Callejas MD - Yovana Callejas MD A - o15 Job ID: [id number] Document ID: [id number] cc: Remedios Strong MD documented in this encounter Plan of Treatment Not on file documented as of this encounter Visit Diagnoses Not on filedocumented in this encounter Care Teams Gas Regulator Repairer Relationship Specialty Start Date End Date Remedios Mehta MD [address] [place] [phone] PCP - General 02/19/09 01/04/15 documented as of this encounter
--- OUTSIDE RECORDS SUMMARY | 2024-09-17 15:28 | XMS_ITS | Encounter Summary ---
Author Organization [facility] Address [address] [place] [address] Care Team Providers Care Infusion Pharmacist Name Role Phone Unavailable Primary Care Provider Unavailabl e Encounter Details Date Type Department Care Team (Late st Contact Info) Description 02/27/2007 11:00 EDT Hospital Encounter [facility] [address] [place] [address] Remedios Mehta MD [address] [place] [phone] Social History Tobacco Use Types Packs/Day [...]
--- OUTSIDE RECORDS SUMMARY | 2024-09-17 15:28 | XMS_ITS | Encounter Summary ---
Author Organization [facility] Address [address] [place] [address] Care Team Providers Care Truck Trailer Mechanic Name Role Phone Unavailable Primary Care Provider Unavailabl e Encounter Details Date Type Department Care Team (Late st Contact Info) Description 08/31/2005 14:45 EST Hospital Encounter [facility] [place] [address] [place] [address] David Rehman MD [address] [facility] [place] [address] Social History Tobacco Use Types Packs/Day Years [...]
--- OUTSIDE RECORDS SUMMARY | 2024-09-17 15:28 | XMS_ITS | Encounter Summary ---
Author Organization [facility] Address [address] [place] [address] Care Team Providers Care Audiovisual Lead Technician Name Role Phone Unavailable Primary Care Provider Unavailabl e Encounter Details Date Type Department Care Team (Late st Contact Info) Description 08/01/2006 10:52 EDT Hospital Encounter [facility] [address] [place] [address] Yonathan Pantoja MD [address] [facility], [address] [place] [address] Social History Tobacco Use Types [...]
--- OUTSIDE RECORDS SUMMARY | 2024-09-17 15:28 | XMS_ITS | Encounter Summary ---
Author Organization [facility] Address [address] [place] [address] Care Team Providers Care Tube Maker Name Role Phone Unavailable Primary Care Provider Unavailabl e Encounter Details Date Type Department Care Team (Latest Contact Info) Description 07/31/2006 11:45 EDT - 07/31/2006 11:59 EDT Hospital Encounter [facility] [address] [place] [address] Remedios Mehta MD [address] [place] [phone] Discharge Disposition: Auto Discharge Social History [...]
--- OUTSIDE RECORDS SUMMARY | 2024-09-17 15:28 | XMS_ITS | Encounter Summary ---
Author Organization [facility] Address [address] [place] [address] Care Team Providers Care Pattern Fitter Name Role Phone Unavailable Primary Care Provider Unavailabl e Encounter Details Date Type Department Care Team (Late st Contact Info) Description 09/14/2005 8:43 EST Hospital Encounter [facility] [address] [place] [address] Madhu Liu MD [address] [place] [phone] Social History Tobacco Use Types Packs/Day [...]
--- OUTSIDE RECORDS SUMMARY | 2024-09-17 15:28 | XMS_ITS | Encounter Summary ---
Author Organization [facility] Address [address] [place] [address] Care Team Providers Care Sales Expert Name Role Phone Unavailable Primary Care Provider Unavailabl e Encounter Details Date Type Department Care Team (Late st Contact Info) Description 12/22/2005 15:42 EST Hospital Encounter [facility] [address] [place] [address] Yovana Callejas MD [address] [place] [address] [phone] Discharge Disposition: Auto Discharge Social [...]
--- OUTSIDE RECORDS SUMMARY | 2024-09-17 15:28 | XMS_ITS | Encounter Summary ---
Author Organization [facility] Address [address] [place] [address] Care Team Providers Care Math And Science Instructor Name Role Phone Remedios Mehta MD Primary Care Provider + [phone] Encounter Details Date Type Department Care Team (Late st Contact Info) Description 05/15/2008 Before PRISM Converted Visit (Maple) [facility] - [place] conversion [address] [place] [address] Yovana Callejas MD [address] [place] [address] [phone] Social History Tobacco Use Types [...] fibromyalgia. SUBJECTIVE She has returned to the [facility] from [place]. She had moved there for a new [...] Yovana Callejas MD - RICHI Job ID: [id number] Doc ID: [id number] cc: Remedios Strong MD documented in this encounter Plan of Treatment Not on file documented as of this encounter Visit Diagnoses Not on filedocumented in this encounter Care Teams Math And Science Instructor Relationship Specialty Start Date End Date Remedios Mehta MD [address] [place], [place] [phone] PCP - General 02/19/09 01/04/15 documented as of this encounter
--- OUTSIDE RECORDS SUMMARY | 2024-09-17 15:28 | XMS_ITS | Encounter Summary ---
Author Organization [facility] Address [address] [place] [address] Care Team Providers Care Sports Media Name Role Phone Remedios Mehta MD Primary Care Provider [phone] Encounter Details Date Type Department Care Team (Late st Contact Info) Description 08/01/2006 Before PRISM Converted Visit (Maple) [facility] - [place] conversion [address] [place] [address] Yonathan Pantoja MD [address] [facility], [address] [place] [address] Social History Tobacco Use Types [...] PULMONOLOGY August 01, 2006 Remedios Strong MD [facility] [address] [place] [address] Strong, I had the pleasure [...] last week with sinus congestion, nasal discharge, [id number] in color, no fevers, maybe some chills. [...] fact tells me she is moving to [place] in October. She has run out of [...] a pulmonary physician for her in the [place], [place] area, which it is where [...] Pantoja MD P - DMV Job ID: [id number] Document ID: [id number] cc: Remedios Strong MD documented in this encounter Plan of Treatment Not on file documented as of this encounter Visit Diagnoses Not on filedocumented in this encounter Care Teams Sports Media Relationship Specialty Start Date End Date Remedios Mehta MD [address] [place] [phone] PCP - General 02/19/09 01/04/15 documented as of this encounter
--- OUTSIDE RECORDS SUMMARY | 2024-09-17 15:28 | XMS_ITS | Encounter Summary ---
Author Organization [facility] Address [address] [place] [address] Care Team Providers Care Business Law Teacher Name Role Phone Unavailable Primary Care Provider Unavailabl e Encounter Details Date Type Department Care Team (Late st Contact Info) Description 05/09/2006 10:42 EDT Hospital Encounter [facility] [address] [place] [address] Yonathan Pantoja MD [address] [facility], [address] [place] [address] Social History Tobacco Use Types [...]
--- OUTSIDE RECORDS SUMMARY | 2024-09-17 15:28 | XMS_ITS | Encounter Summary ---
Author Organization [facility] Address [address] [place] [address] Care Team Providers Care Salon Customer Experience Specialist Name Role Phone Remedios Mehta MD Primary Care Provider + [phone] Encounter Details Date Type Department Care Team (Late st Contact Info) Description 03/21/2007 Before PRISM Converted Visit (Maple) [facility] - [facility] conversion [address] [place] [address] Yovana Callejas MD [address] [place] [address] [phone] Social History Tobacco Use Types [...] Moving out of area. Patient was given ACR Directory to locate a physician in the [place] area. Signed by Yovana Callejas MD 03/27/2007 14:25 Myron Callejas, Jens Callejas, Jens Callejas MD Yovana Callejas MD -Yovana Callejas MD -na Job ID: [id number] Doc ID: [id number] cc: Remedios Strong MD *Cherelle Husain, [address] [place] [address] [place]* documented in this encounter Plan of Treatment Not on file documented as of this encounter Visit Diagnoses Not on filedocumented in this encounter Care Teams Salon Customer Experience Specialist Relationship Specialty Start Date End Date Remedios Mehta MD [address] [place] [phone] PCP - General 02/19/09 01/04/15 documented as of this encounter
--- OUTSIDE RECORDS SUMMARY | 2024-09-17 15:28 | XMS_ITS | Encounter Summary ---
Author Organization [facility] Address [address] [place] [address] Care Team Providers Care Pipe Line Gauger Name Role Phone Unavailable Primary Care Provider Unavailabl e Encounter Details Date Type Department Care Team (Late st Contact Info) Description 09/12/2008 14:31 EST Hospital Encounter [facility] [address] [place] [address] Yovana Callejas MD [address] [place] [address] [address] [place] [phone] Social History Tobacco Use Types Packs/Day [...]
--- OUTSIDE RECORDS SUMMARY | 2024-09-17 15:28 | XMS_ITS | Encounter Summary ---
Author Organization [facility] Address [address] [place] [address] Care Team Providers Care Advertising Director Name Role Phone Unavailable Primary Care Provider Unavailabl e Encounter Details Date Type Department Care Team (Latest Contact Info) Description 04/28/2006 10:01 EDT - 04/28/2006 11:59 EDT Hospital Encounter [facility] [address] [place] [address] Remedios Mehta MD [address] [place] [phone] Discharge Disposition: Auto Discharge Social History [...]
--- OUTSIDE RECORDS SUMMARY | 2024-09-17 15:28 | XMS_ITS | Encounter Summary ---
Author Organization [facility] Address [address] [place] [address] Care Team Providers Care Torch Brazer Name Role Phone Unavailable Primary Care Provider Unavailabl e Encounter Details Date Type Department Care Team (Late st Contact Info) Description 08/02/2005 8:40 EDT Hospital En[facility] [address] [place] [address] Madhu Liu MD [address] [place] [phone] Social History Tobacco Use Types Packs/Day [...]
--- OUTSIDE RECORDS SUMMARY | 2024-09-17 15:28 | XMS_ITS | Encounter Summary ---
Author Organization [facility] Address [address] [place] [address] Care Team Providers Care Report Specialist Name Role Phone Unavailable Primary Care Provider Unavailabl e Encounter Details Date Type Department Care Team (Late st Contact Info) Description 11/18/2008 7:46 EST Hospital Encounter [facility] [place] - [place] conversion [address] [place] [address] Manasa Luciano PA-C [address] [facility] [address] [place] [address] Social History Tobacco Use Types [...]
--- OUTSIDE RECORDS SUMMARY | 2024-09-17 15:28 | XMS_ITS | Encounter Summary ---
Author Organization [facility] Address [address] [place] [address] Care Team Providers Care Adjuster And Inspector Name Role Phone Unavailable Primary Care Provider Unavailabl e Encounter Details Date Type Department Care Team (Latest Contact Info) Description 08/29/2005 8:20 EST - 08/29/2005 11:59 EST Hospital Encounter [address] [address] Brook Cifuentes MD [facility] [place] [address] Discharge Disposition: Auto Discharge Social [...] the left ovary. Otherwise normal exam. /anuj us Brook Cifuentes MD G US ORDERABLES Final Result documented in this encounter Visit Diagnoses Not on filedocumented in this encounter
--- OUTSIDE RECORDS SUMMARY | 2024-09-17 15:28 | XMS_ITS | Encounter Summary ---
Author Organization [facility] Address [address] [place] [address] Care Team Providers Care Crew Leader/Control Room Operator Name Role Phone Unavailable Primary Care Provider Unavailabl e Encounter Details Date Type Department Care Team (Latest Contact Info) Description 08/08/2008 14:02 EDT Hospital Encounter [facility] [address] [place] [address] Cathryn Garza, MARIA [address] [place] [address] Discharge Disposition: Auto Discharge Social History Tobacco [...]
--- OUTSIDE RECORDS SUMMARY | 2024-09-17 15:28 | XMS_ITS | Encounter Summary ---
Author Organization [facility] Address [address] [place] [address] Care Team Providers Care Clinical Account Liaison Name Role Phone Remedios Mehta MD Primary Care Provider [phone] Encounter Details Date Type Department Care Team (Late st Contact Info) Description 05/09/2006 Before PRISM Converted Visit (Maple) [facility] - [place] conversion [address] [place], [place] [address] [phone] Yonathan Pantoja MD [address] [facility], [address] [place] [address] Social History Tobacco Use Types [...] PULMONOLOGY May 09, 2006 Remedios Strong MD [facility] [address] [place] [address] Strong: I had the pleasure of seeing your patient Ms. Husain in Pulmonary Clinic for followup of her asthmaI am taking over her care from Dr. Mauro Lane who has left [facility]. As you know, Mrs. Husain has severe asthmaas well as vocal cord [...] Pantoja MD A - do Job ID: [id number] Document ID: [id number] cc: Remedios Strong MD documented in this encounter Plan of Treatment Not on file documented as of this encounter Visit Diagnoses Not on filedocumented in this encounter Care Teams Clinical Account Liaison Relationship Specialty Start Date End Date Remedios Mehta MD [address] [place] [phone] PCP - General 02/19/09 01/04/15 documented as of this encounter
--- OUTSIDE RECORDS SUMMARY | 2024-09-17 15:28 | XMS_ITS | Encounter Summary ---
Author Organization [facility] Address [address] [place] [address] Care Team Providers Care Environmental Sampling Technician Name Role Phone Unavailable Primary Care Provider Unavailabl e Encounter Details Date Type Department Care Team (Late st Contact Info) Description 12/23/2005 8:57 EST Hospital Encounter [facility] [address] [place] [address] Madhu Liu MD [address] [place] [phone] Social History Tobacco Use Types Packs/Day [...]
--- OUTSIDE RECORDS SUMMARY | 2024-09-17 15:28 | XMS_ITS | Encounter Summary ---
Author Organization [facility] Address [address] [place] [address] Care Team Providers Care Construction Management Instructor Name Role Phone Unavailable Primary Care Provider Unavailabl e Encounter Details Date Type Department Care Team (Late st Contact Info) Description 12/16/2005 14:44 EST Hospital Encounter [facility] [address] [place] [address] MD [address] [place] [phone] Social History Tobacco Use Types Packs/Day Years [...]
--- OUTSIDE RECORDS SUMMARY | 2024-09-17 15:28 | XMS_ITS | Encounter Summary ---
Author Organization [facility] Address [address] [place] [address] Care Team Providers Care Burring Wheel Operator Name Role Phone Unavailable Primary Care Provider Unavailabl e Encounter Details Date Type Department Care Team (Late st Contact Info) Description 08/23/2005 10:23 EDT Hospital Encounter [facility] - [facility] [address] [place] [address] Brook Cifuentes MD [address] [place] [address] Social History Tobacco Use Types Packs/Day Years [...] 08/23/2005 14:5 4 EDT 08/23/2005 19:28 EDT us Brook Cifuentes MD CHEMISTRY & BLOOD GAS ORDERABLES Final Result [facility] [address] [place] [address] * (ABNORMAL) HEMAGRAM (08/23/2005 14:54 EDT) WBC [...] LAB MCHC 35.0 32.1 - 35.9 gm/dl [facility] PLT 392(H) 141 - 320 K/cmm [facility] RDW-CV 12.0 11.7 - 14.6 % [facility] 08/23/2005 14:5 4 EDT 08/23/2005 19:28 EDT Brook Cifuentes MD HEMATOLOGY & PF4 ORDERABLES Jessica l Result Performing Organization Address City/[facility] Co de Phone Number [facility] [address] [place] [address] * CHLAMYDIA TRACHOMATIS AMPLIFIED PROBE (08/23/2005 14:54 EDT) Specimen Description Endocervix [facility] Result Unable to test specimen: Incorrect swab submitted in transport tube (please use blue swab ONLY). Credit Issued [facility] Report Status Final [id number] [facility] 08/23/2005 14:5 4 EDT 08/24/2005 7:23 EDT Brook Cifuentes MD MICROBIOLOGY - GENERAL ORDERABLE S Final Result Performing Organization Address [facility] de Phone Number [facility] [address] [place] [address] * BACTERIAL CULTURE/SMEAR, OTHER (08/23/2005 14:54 EDT) Specimen Description Vagina Specimen submitted on a swab [facility] Gram Smear Result No clue cells present No yeast seen [facility] Result Rare Yeast forms Consult Pathologist for further testing within 7 days Mod Usual vaginal iona [facility] Report Status Final [id number] [facility] 08/23/2005 14:5 4 EDT 08/23/2005 19:16 EDT Brook Cifuentes MD MICROBIOLOGY - GENERAL ORDERABLE S Final Result Performing Organization Address [facility] de Phone Number [facility] [address] [place] [address] documented in this encounter Visit Diagnoses Not on filedocumented in this encounter Additional Health Concerns Infection Onset Date Last Indicated Resolved Time Rule-Out C. difficile 2021 04/16/20212020 13:40 EDT C. difficile 04/16/2021 04/16/2021 06/15/2021 22:1 5 EDT documented as of this encounter
--- OUTSIDE RECORDS SUMMARY | 2024-09-17 15:28 | XMS_ITS | Encounter Summary ---
Author Organization [facility] Address [address] [place] [address] Care Team Providers Care Sales Department Manager Name Role Phone Unavailable Primary Care Provider Unavailabl e Encounter Details Date Type Department Care Team (Latest Contact Info) Description 07/17/2008 8:54 EDT - 07/17/2008 11:59 EDT Hospital Encounter [facility] [place] conversion [address] [place] [address] Sam Griffith MD Discharge Disposition: Auto Discharge [...] disc degeneration at L5-S1. Sam Griffith MD [facility]STIC [facility] Final Result * CERVICAL SPINE 2-3 VIEWS (07/17/2008 10:25 [...] Disc degeneration at C4-C5, C5-C6 and C6-C7. us Sam Griffith MD IMG DIAGNOSTIC IMAGING [facility]DO TREJO Final Result documented in this encounter Visit Diagnoses Not on filedocumented in this encounter
--- OUTSIDE RECORDS SUMMARY | 2024-09-17 15:28 | XMS_ITS | Encounter Summary ---
Author Organization [facility] Address [address] [place] [address] Care Team Providers Care Commodity Lead Name Role Phone Unavailable Primary Care Provider Unavailabl e Encounter Details Date Type Department Care Team (Late st Contact Info) Description 07/29/2005 16:22 EDT Hospital Encounter [facility] - Other [address] [place] [address] Remedios Mehta MD [address] [place] [phone] Social History Tobacco Use Types Packs/Day [...] 07/29/2005 16:0 7 EDT 07/29/2005 19:11 EDT us Remedios Mehta MD CHEMISTRY & BLOOD GAS ORD ERABLES Final Result Performing Organization Address [facility] Co de Phone Number [facility] [address] [place] [address] * CHOLESTEROL (07/29/2005 16:07 EDT) Cholesterol 180 mg/dl [facility] Comment: Desirable:<200 Borderline:200-239 High Risk:>ci=510 07/29/2005 16:0 7 EDT 07/29/2005 19:11 EDT us Remedios Mehta MD CHEMISTRY & BLOOD GAS ORD ERABLES Final Result Performing Organization Address [facility] Co de Phone Number [facility] [address] [place] [address] * (ABNORMAL) BASIC METABOLIC PANEL (07/29/2005 16:07 EDT) Sodium 142 136 - 145 mEq/L [facility] Potassium 4.8 3.5 - 5.0 mEq/L [facility] Chloride 105 96 - 110 mEq/L [facility] CO2 31 24 - 32 mEq/L [facility] BUN 20 10 - 26 mg/dl [facility] Creatinine 1.1 0.7 - 1.5 mg/dl [facility] Calcium 10.0 8.5 - 10.5 mg/dl [facility] Calculated Calcium 10.6(H) 8.5 - 10.5 mg/dl [facility] Glucose, Serum 86 70 - 110 mg/dl [facility] Fasting? No [facility] 07/29/2005 16:0 7 EDT 07/29/2005 19:11 EDT us Remedios Mehta MD CHEMISTRY & BLOOD GAS ORD ERABLES Final Result Performing Organization Address City/[facility] Co de Phone Number [facility] [address] [place] [address] * HEMOGLOBIN A1C (07/29/2005 16:07 EDT) Hemoglobin A1C 5.2 % [facility] Comment: Reference Range: <6% Normal Range <7% Recommended goal by ADA guidelines 7-8% Suboptimal by ADA guidelines >8% Further action suggested by ADA guidelines 07/29/2005 16:0 7 EDT 07/29/2005 19:11 EDT us Remedios Mehta MD CHEMISTRY & BLOOD GAS ORD ERABLES Final Result Performing Organization Address City/[facility]/ZIP Co de Phone Number [facility] [address] [place] [address] documented in this encounter Visit Diagnoses Not on filedocumented in this encounter Additional Health Concerns Infection Onset Date Last Indicated Resolved Time Rule-Out C. difficile 2021 04/16/20212020 13:40 EDT C. difficile 04/16/2021 04/16/202106/1506/15/2021 22:1 5 EDT documented as of this encounter
--- OUTSIDE RECORDS SUMMARY | 2024-09-17 15:28 | XMS_ITS | Encounter Summary ---
Author Organization [facility] Address [address] [place] [address] Care Team Providers Care Electrical Technician Instructor Name Role Phone Unavailable Primary Care Provider Unavailabl e Encounter Details Date Type Department Care Team (Late st Contact Info) Description 02/13/2007 9:31 EDT Hospital Encounter [facility] [place] conversion [address] [place] [address] Elise Valle, BRICK SETTER [address] [place] [address] Social History Tobacco Use Types [...]
--- OUTSIDE RECORDS SUMMARY | 2024-09-17 15:28 | XMS_ITS | Encounter Summary ---
Author Organization [facility] Address [address] [place] [address] Care Team Providers Care Medical Lead Name Role Phone Unavailable Primary Care Provider Unavailabl e Encounter Details Date Type Department Care Team (Latest Contact Info) Description 09/14/2008 17:00 EST Hospital Encounter [facility] [address] [place] [address] Sam Griffith MD Discharge Disposition: Auto Discharge [...] Kyphosis maximum at C6 level. Procedure Note Harjit Arrington MD - 03/16/2009 chronic neck and [...] maximum at C6 level. Sam Griffith MD IMG MRI ORDERABLES Final Re sult documented in this encounter Visit Diagnoses Not on filedocumented in this encounter
--- OUTSIDE RECORDS SUMMARY | 2024-09-17 15:28 | XMS_ITS | Encounter Summary ---
Author Organization [facility] Address [address] [place] [address] Care Team Providers Care Band Attacher Name Role Phone Unavailable Primary Care Provider Unavailabl e Encounter Details Date Type Department Care Team (Late st Contact Info) Description 10/03/2006 15:03 EST Hospital Encounter [facility] [address] [place] [address] Yovana Callejas MD [address] [place] [address] [address] [place] [phone] Social History Tobacco Use Types Packs/Day [...]
--- OUTSIDE RECORDS SUMMARY | 2024-09-17 15:28 | XMS_ITS | Encounter Summary ---
Author Organization [facility] Address [address] [place] [address] Care Team Providers Care Well Drill Operator Name Role Phone Unavailable Primary Care Provider Unavailabl e Encounter Details Date Type Department Care Team (Latest Contact Info) Description 02/09/2007 11:53 EDT - 02/09/2007 11:59 EDT Hospital Encounter [address] [address] Remedios Mehta MD [address] [place] [phone] Discharge Disposition: Auto Discharge Social History [...]
--- OUTSIDE RECORDS SUMMARY | 2024-09-17 15:28 | XMS_ITS | Encounter Summary ---
Author Organization [facility] Address [address] [place] [address] Care Team Providers Care Forest Practices Field Coordinator Name Role Phone Unavailable Primary Care Provider Unavailabl e Encounter Details Date Type Department Care Team (Late st Contact Info) Description 09/15/2005 15:32 EST Hospital Encounter [facility] [place] [address] [place] [address] David Rehman MD [address] [facility] [place] [address] Social History Tobacco Use Types Packs/Day Years [...]
--- OUTSIDE RECORDS SUMMARY | 2024-09-17 15:28 | XMS_ITS | Encounter Summary ---
Author Organization [facility] Address [address] [place] [address] Care Team Providers Care Shredded Filler Cutter Operator Name Role Phone Keshawn Mehta MD Primary Care Provider [phone] Encounter Details Date Type Department Care Team (Late st Contact Info) Description 07/29/[address] [facility] [address] [address] Keshawn Mehta MD [address] [place] [phone] Social History Tobacco Use Types Packs/Day [...] reading/interpreti ng unformatted reports. Name: ? CHERELLE BETTENCOURT ? Accession #: ? [id number] : ? 1960 (Age: 45) ??F ?Collect Date: ? 07/29/2005 Location: ? [facility] ? Receive Date: ? 08/01/2005 Provider: ?KESHAWN MEJIA MD Copy to: ? Specimen/Source: ?ThinPrep Pap Test, Cervix/Endocervix, processed on [employer] ThinPrep Imaging System, with manual evaluation Last [...] End of Report [facility] 07/29/2005 08/01/2005 us Keshawn Mehta MD PATHOLOGY ORDERABLES Jessica hu Result [facility] [address] [place] [address] documented in this encounter Visit Diagnoses Not on filedocumented in this encounter Care Teams Shredded Filler Cutter Operator Relationship Specialty Start Date End Date Keshawn Mehta MD [address] [place] [phone] PCP - General 02/19/09 01/04/15 documented as of this encounter
--- OUTSIDE RECORDS SUMMARY | 2024-09-17 15:29 | XMS_ITS | Encounter Summary ---
Author Organization [facility] Address [address] [place] [address] Care Team Providers Care Motor Overhauler Name Role Phone Unavailable Primary Care Provider Unavailabl e Encounter Details Date Type Department Care Team (Latest Contact Info) Description 09/13/2004 12:07 EST Hospital Encounter [facility] [address] [place] [address] David Pedersen MD Discharge Disposition: Auto Discharge [...]
--- OUTSIDE RECORDS SUMMARY | 2024-09-17 15:29 | XMS_ITS | Encounter Summary ---
Author Organization [facility] Address [address] [place] [address] Care Team Providers Care Rail Operations Controller Name Role Phone Unavailable Primary Care Provider Unavailabl e Encounter Details Date Type Department Care Team (Latest Contact Info) Description 09/13/2001 13:22 EST - 09/28/2001 11:59 EST Hospital Encounter [address] [address] Harsha Chong MD Discharge Disposition: Auto Discharge [...]
--- OUTSIDE RECORDS SUMMARY | 2024-09-17 15:29 | XMS_ITS | Encounter Summary ---
Author Organization [facility] Address [address] [place] [address] Care Team Providers Care Beef Lugger Name Role Phone Unavailable Primary Care Provider Unavailabl e Encounter Details Date Type Department Care Team (Latest Contact Info) Description 01/20/2004 16:09 EST Hospital Encounter [facility] - Other [address] [place] [address] Avel Mondragon MD Douglass, Marjorie, NP Discharge [...]
--- OUTSIDE RECORDS SUMMARY | 2024-09-17 15:29 | XMS_ITS | Encounter Summary ---
Author Organization [facility] Address [address] [place] [address] Care Team Providers Care Sales Systems Engineer Name Role Phone Unavailable Primary Care Provider Unavailabl e Encounter Details Date Type Department Care Team (Late st Contact Info) Description 02/11/2004 8:15 EDT Hospital Encounter [facility] [place] conversion [address] [place] [address] MD [address] [place] [address] Social History Tobacco Use Types Packs/Day [...]
--- OUTSIDE RECORDS SUMMARY | 2024-09-17 15:29 | XMS_ITS | Encounter Summary ---
Author Organization [facility] Address [address] [place] [address] Care Team Providers Care Tooth Cutter Spur Name Role Phone Unavailable Primary Care Provider Unavailabl e Encounter Details Date Type Department Care Team (Late st Contact Info) Description 12/06/2001 16:16 EST Hospital Encounter [address] MD [address] [place] [phone] Social History Tobacco Use Types Packs/Day Years [...] 12/06/2001 16:4 9 EST 12/06/2001 16:[address] MD CHEMISTRY & BLOOD GAS ORDERABL ES Final Result Performing Organization Address City/State/[facility] Co de Phone Number [facility] [address] [place] [address] documented in this encounter Visit Diagnoses Not on filedocumented in this encounter Additional Health Concerns Infection Onset Date Last Indicated Resolved Time Rule-Out C. difficile 2021 04/16/20212020 13:40 EDT C. difficile 04/16/2021 04/16/2021 06/15/2021 22:1 5 EDT documented as of this encounter
--- OUTSIDE RECORDS SUMMARY | 2024-09-17 15:29 | XMS_ITS | Encounter Summary ---
Author Organization [facility] Address [address] [place] [address] Care Team Providers Care Appeals Referee Name Role Phone Remedios Mehta MD Primary Care Provider [phone] Encounter Details Date Type Department Care Team (Late st Contact Info) Description 06/10/2005 Before PRISM Converted Visit ([place]) [facility] [place] conversion [address] [place] [address] MD [address] [place] [address] Social History Tobacco Use Types Packs/Day Years Used Date Smoking Tobacco: Never Assessed Comments Unknown Sex and Gender Information Value Date Recorded Sex Assigned at Not on file Legal Sex Female 17:25 EST Gender Identity Female 2021 11:19 EDT Sexual Orientation Not on file documented as of this encounter Progress Notes * Senthil, Conv Group Care Worker - 12/29/2009 1659 EST DIVISION OF PULMONARY [...] Lane MD P - do Job ID: [id number] Document ID: [id number] cc: Harsha Chong MD documented in this encounter Plan of Treatment Not on file documented as of this encounter Visit Diagnoses Not on filedocumented in this encounter Care Teams Appeals Referee Relationship Specialty Start Date End Date Remedios Mehta MD [address] [place] [phone] PCP - General 02/19/09 01/04/15 documented as of this encounter
--- OUTSIDE RECORDS SUMMARY | 2024-09-17 15:29 | XMS_ITS | Encounter Summary ---
Author Organization [facility] Address [address] [place] [address] Care Team Providers Care Conveyor Attendant Name Role Phone Remedios Mehta MD Primary Care Provider [phone] Encounter Details Date Type Department Care Team (Late st Contact Info) Description 06/10/2005 Before PRISM Converted Visit ([facility] [place] [facility] [address] [place] [address] Julian Garza MD [address] [facility] [address] [place] [address] Social History Tobacco Use [...] or need for further evaluation. PLAN: 1. METAL OFF BEARER evaluation for her abnormal menstrual periods that [...] Garza MD A - LM Job ID: [id number] Document ID: [id number] cc: Yovana Callejas MD * Julian Garza MD - 12/30/2009 1141 EST DIVISION OF HEMATOLOGY / ONCOLOGY June 24, 2005 Yovana Callejas MD [address] Callejas, Thank you for referring [...] Garza MD A - RF Job ID: [id number] Document ID: [id number] cc: Yovana Callejas MD documented in this [...] in the chart.Notably, she has had several intermission coordinator issues with her abdomen and fatigue. These have not appreciably changed. She has had no significant fevers, chills,night sweats or weight loss. She has had no evidence of new additional systemic disease beyond her baseline. PAST MEDICAL HISTORY: 1. 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 She is . She has [...] history is certainly not suggestive of a intermission coordinator congenital diagnosis to explain this. Occasionally, patients [...] Garza MD P - LM Job ID: [id number] Document ID: [id number] cc: Yovana Callejas MD documented in this encounter Care Teams Conveyor Attendant Relationship Specialty Start Date End Date Remedios Mehta MD [address] [place] [phone] PCP - General 02/19/09 01/04/15 documented as of this encounter
--- OUTSIDE RECORDS SUMMARY | 2024-09-17 15:29 | XMS_ITS | Encounter Summary ---
Author Organization [facility] Address [address] [place] [address] Care Team Providers Care Milling Machine Operator Gear Name Role Phone Unavailable Primary Care Provider Unavailabl e Encounter Details Date Type Department Care Team (Late st Contact Info) Description 08/23/2004 11:49 EDT Hospital Encounter [facility] - Other [address] [place] [address] Yovana Callejas MD [address] [place] [address] [address] [place] [address] Zhou Callejas [address] [place] [address] Social History Tobacco Use Types Packs/Day Years [...] Asthma 133/57(2020 14:39 EDT) No Emily Gibson, RN LIAISON LDL < 130 Result Component Hyperlipidemia 143( 4 11:54 EDT) No Emily Gibson, RN LIAISON documented as of this encounter Procedures Procedure Name Priority Date/Time Associated Diagnosis Comments URINALYSIS WITH MICROSCOPIC IF POSITIVE Routine 08/23/2004 11:59 EDT UA REFLEX Routine 08/23/2004 11:59 EDT SED RATE Routine 08/23/2004 11:58 EDT documented in this encounter Results * UA REFLEX (08/23/2004 11:59 EDT) UA Billing Microscopic not indicated. [facility] 08/23/2004 11:5 9 EDT 08/23/2004 12:18 EDT us Yovana Callejas MD URINALYSIS ORDERABLES Fi nal Result [facility] [address] [place] [address] * (ABNORMAL) URINALYSIS (08/23/2004 11:59 EDT) Color, UA Yellow [facility] Clarity, UA Clear [facility] Glucose, UA Norm NORM [facility] Bilirubin, UA Neg NEG [facility] Ketones, UA Neg NEG [facility] Specific Belk, Urine 1.020 1.005 - 1.02 [facility] Blood, UA Neg NEG [facility] pH, UA 7.0 5.0 - 9.0 [facility] Protein, UA Neg NEG [facility] Urobilinogen, UA 1.0(A) NORM mg/dL [facility] Nitrite, UA Neg NEG [facility] Leuk Esterase Neg NEG [facility] 08/23/2004 11:5 9 EDT 08/23/2004 12:18 EDT us Yovana Callejas MD URINALYSIS ORDERABLES Fi nal Result Performing Organization Address City/[facility] Co de Phone Number [facility] [address] [place] [address] * SED. RATE:MISA (08/23/2004 11:58 EDT) Sed. Rate Westergren 12 0 - 20 mm/hr [facility] 08/23/2004 11:5 8 EDT 08/23/2004 12:18 EDT us Yovana Callejas MD HEMATOLOGY & PF4 ORDERAB LES Final Result Performing Organization Address [facility] de Phone Number [facility] [address] [place] [address] documented in this encounter Visit Diagnoses Not on filedocumented in this encounter Additional Health Concerns Infection Onset Date Last Indicated Resolved Time Rule-Out C. difficile 2021 04/16/20212020 13:40 EDT C. difficile 04/16/2021 04/16/2021 06/15/2021 22:1 5 EDT documented as of this encounter
--- OUTSIDE RECORDS SUMMARY | 2024-09-17 15:29 | XMS_ITS | Encounter Summary ---
Author Organization [facility] Address [address] [place] [address] Care Team Providers Care Customer Success Intern Name Role Phone Unavailable Primary Care Provider Unavailabl e Encounter Details Date Type Department Care Team (Late st Contact Info) Description 12/19/2002 16:57 EST Hospital Encounter [facility] [place] [address] [place] [address] MD [address] [place] [address] Yonathan Pantoja MD [address] [facility] [place] [address] Social History Tobacco Use Types [...]
--- OUTSIDE RECORDS SUMMARY | 2024-09-17 15:29 | XMS_ITS | Encounter Summary ---
Author Organization [facility] Address [address] [place] [address] Care Team Providers Care Paraffin Plant Sweater Operator Name Role Phone Unavailable Primary Care Provider Unavailabl e Encounter Details Date Type Department Care Team (Late st Contact Info) Description 05/23/2005 12:28 EDT Hospital Encounter [facility] - Other [address] [place] [address] Yovana Callejas MD [address] [place] [address] [address] [place] [address] Social History Tobacco Use Types [...]
--- OUTSIDE RECORDS SUMMARY | 2024-09-17 15:29 | XMS_ITS | Encounter Summary ---
Author Organization [facility] Address [address] [place] [address] Care Team Providers Care Operator Coating Furnace Name Role Phone Unavailable Primary Care Provider Unavailabl e Encounter Details Date Type Department Care Team (Latest Contact Info) Description 12/26/2003 9:40 EST - 12/26/2003 11:59 EST Hospital Encounter [facility] [address] [place] [address] Tahir Suarez MD [address] [place] [phone] Discharge Disposition: Auto Discharge Social History [...] hyperparthyroidism, interstial lung disease, pleural effussions, etc. /[facility] Narrative 07/09/2009 13:28 EDT T BONE SCAN, BILATERAL LOWER EXT PAIN IN KNEES, LEGS AND ANKLES R/O ST RESS FX, ARTHRITIS WHOLE BODY BONE SCAN: 12/26/03, 1300 TECHNIQUE: Jzt-crq-ilk-half hours after the IV injection of 22.6 [...] WHOLE BODY BONE SCAN: 12/26/03, 1300 TECHNIQUE: Fog-xiu-tdy-half hours after the IV injection of 22.6 [...] interstial lung disease, pleural effussions, etc. /ishmael us Tahir Suarez MD IMG NM ORDERABLES Fin al Result documented in this encounter Visit Diagnoses Not on filedocumented in this encounter
--- OUTSIDE RECORDS SUMMARY | 2024-09-17 15:29 | XMS_ITS | Encounter Summary ---
Author Organization [facility] Address [address] [place] [address] Care Team Providers Care Caustic Room Attendant Name Role Phone Unavailable Primary Care Provider Unavailabl e Encounter Details Date Type Department Care Team (Latest Contact Info) Description 06/19/2000 11:08 EDT - 06/19/2000 11:59 EDT Hospital Encounter [address] [address] [place] [address] [place] [phone] Discharge Disposition: Auto Discharge Social History [...]
--- OUTSIDE RECORDS SUMMARY | 2024-09-17 15:29 | XMS_ITS | Encounter Summary ---
Author Organization [facility] Address [address] [place] [address] Care Team Providers Care Field Handyman Name Role Phone Unavailable Primary Care Provider Unavailabl e Encounter Details Date Type Department Care Team (Late st Contact Info) Description 11/27/2001 15:44 EST Hospital Encounter [facility] [place] conversion [address] [place] [address] MD [address] [place] [address] Social History Tobacco Use Types Packs/Day [...] Blood Pressure Asthma 133/57(2020 14:39 EDT) No mEily Gibson LPN LDL < 130 Result Component [...]
--- OUTSIDE RECORDS SUMMARY | 2024-09-17 15:29 | XMS_ITS | Encounter Summary ---
Author Organization [facility] Address [address] [place] [address] Care Team Providers Care Pattern Changer Name Role Phone Unavailable Primary Care Provider Unavailabl e Encounter Details Date Type Department Care Team (Latest Contact Info) Description 03/18/2002 7:46 EDT - 03/18/2002 11:59 EDT Hospital Encounter [facility] - Other [address] [place] [address] Avel Mondragon MD Unknown, Provider, MD Discharge Disposition: Auto Discharge Social History [...]
--- OUTSIDE RECORDS SUMMARY | 2024-09-17 15:29 | XMS_ITS | Encounter Summary ---
Author Organization [facility] Address [address] [place] [address] Care Team Providers Care School Manager Name Role Phone Unavailable Primary Care Provider Unavailabl e Encounter Details Date Type Department Care Team (Latest Contact Info) Description 08/14/2001 9:06 EDT - 08/14/2001 11:59 EDT Hospital Encounter [facility] [place] [address] [place] [address] Harsha Chong MD Discharge Disposition: Auto Discharge [...] other abnormalities are seen. Procedure Note [place] [employer] PT / Amara Zaldivar MD - 09/09/2009 [...] ASSESSMENT - NEGATIVE END OF IMPRESSION us Harsha Chong MD IMG MAMMOGRAPHY ORDERABLES Jessica l Result documented in this encounter Visit Diagnoses Not on filedocumented in this encounter
--- OUTSIDE RECORDS SUMMARY | 2024-09-17 15:29 | XMS_ITS | Encounter Summary ---
Author Organization [facility] Address [address] [place] [address] Care Team Providers Care Order Administrator Name Role Phone Unavailable Primary Care Provider Unavailabl e Encounter Details Date Type Department Care Team (Late st Contact Info) Description 09/18/2000 15:58 EST Hospital Encounter [facility] - [place] [address] [place] [address] Yonathan Pantoja MD [address] [facility], [address] [place] [address] Social History Tobacco Use Types [...]
--- OUTSIDE RECORDS SUMMARY | 2024-09-17 15:29 | XMS_ITS | Encounter Summary ---
Author Organization [facility] Address [address] [place] [address] Care Team Providers Care Aligning Inspector Name Role Phone Unavailable Primary Care Provider Unavailabl e Encounter Details Date Type Department Care Team (Late st Contact Info) Description 06/16/2000 12:12 EDT Hospital Encounter [facility] - Other [address] [place] [address] Harsha Chong MD Unknown, Provider, MD Social History Tobacco Use Types Packs/Day [...] Asthma 133/57(2020 14:39 EDT) No Gibson, Emily, FOOD BEVERAGE MANAGER LDL < 130 Result Component Hyperlipidemia 143( 4 11:54 EDT) No Gibson, Emily, FOOD BEVERAGE MANAGER documented as of this encounter Procedures Procedure Name Priority Date/Time Associated Diagnosis Comments CHEST PA AND LATERAL Routine 06/19/2000 10:51 EDT HSV (ONLY) CULTURE Routine 06/16/2000 9:40 EDT documented in this encounter Results * [...] cardiopulmonary disease. D: 08-10-00 T: 08-14-00 /am us Madhu Mosley MD IMG DIAGNOSTIC IMAGING ORDERA BLES Final Result * HSV (ONLY) CULTURE (06/16/2000 9:40 EDT) Specimen Description Lip [facility] Result No herpes simplex recovered [facility] Report Status Final [id number] [facility] 06/16/2000 9:40 EDT 06/16/2000 11:57 EDT us Harsha Chong MD MICROBIOLOGY - GENERAL ORDERABL ES Final Result [facility] [address] [place] [address] documented in this encounter Visit Diagnoses Not on filedocumented in this encounter Additional Health Concerns Infection Onset Date Last Indicated Resolved Time Rule-Out C. difficile 2021 04/16/20212020 13:40 EDT C. difficile 04/16/2021 04/16/2021 06/15/2021 22:1 5 EDT documented as of this encounter
--- OUTSIDE RECORDS SUMMARY | 2024-09-17 15:29 | XMS_ITS | Encounter Summary ---
Author Organization [facility] Address [address] [place] [address] Care Team Providers Care Evaluation Engineer Name Role Phone Unavailable Primary Care Provider Unavailabl e Encounter Details Date Type Department Care Team (Latest Contact Info) Description 12/25/2002 11:19 EST - 12/25/2002 11:59 EST Hospital Encounter [facility] conversion [address] [place] [address] Harsha Chong MD Discharge Disposition: Auto Discharge [...] - NEGATIVE END OF IMPRESSION Elvi Bai SOUND TESTER IMG MAMMOGRAPHY ORDERABLES Final Result documented in this encounter Visit Diagnoses Not on filedocumented in this encounter
--- OUTSIDE RECORDS SUMMARY | 2024-09-17 15:29 | XMS_ITS | Encounter Summary ---
Author Organization [facility] Address [address] [place] [address] Care Team Providers Care Continuous Pickling Line Pickler Name Role Phone Unavailable Primary Care Provider Unavailabl e Encounter Details Date Type Department Care Team (Late st Contact Info) Description 02/06/2003 15:30 EDT Hospital Encounter [facility] [place] [facility] - [place] [facility] [address] [place] [address] MD [address] [place] [address] MD [address] [place] [address] Social History Tobacco Use Types [...]
--- OUTSIDE RECORDS SUMMARY | 2024-09-17 15:29 | XMS_ITS | Encounter Summary ---
Author Organization [facility] Address [address] [place] [address] Care Team Providers Care Certified Court Interpreter Name Role Phone Remedios Mehta MD Primary Care Provider + [phone] Encounter Details Date Type Department Care Team (Late st Contact Info) Description 06/23/2005 Office Visit [facility] - [place] conversion [address] [place] [address] Peter Hall MD 111 [facility], Level [address] [place] [address] Social History Tobacco Use Types Packs/Day Years Used Date Smoking Tobacco: Never Assessed Comments Unknown Sex and Gender Information Value Date Recorded Sex Assigned at Not on file Legal Sex Female 17:25 EST Gender Identity Female 2021 11:19 EDT Sexual Orientation Not on file documented as of this encounter Progress Notes * Peter Hall MD - 12/29/2009 8392 EST Department - Physician Summary Registration Date/Time: [...] with Doctor. Follow-up: SENIA DOYLE MD, ORTHOPAEDICS/TRAUMA, [phone], [address] [place], [address] Follow up in about seven days even [...] with Doctor. Follow-up: SENIA DOYLE MD, ORTHOPAEDICS/TRAUMA, [phone], [address] [place], [address] Follow up in about seven days even if well. (Electronically signed by Panda Colorado MD 06/23/2005 11:35) Department - Nursing Summary Registration Date/Time: 06/23/2005 8:43 TRIAGE Initial Assessment Triage time 08:45 Jun 23 2005 Acuity: LEVEL 4. BP: 107 / 65 HR: 74 Temp: 36.4 Alert. No acute distress. --8279 Jessy Lozoya, R.N. Medications (ACCOLATE, HYDROPLAQUNIL, TRAZADOME, ZELNORM, ADVIR, PROTONIX, CALCIUM WITH VIT D). --51 Jessy Lozoya R.N. Allergies (CODIENE, PCN, ASA, [...] Patient verbalized understanding. Written instructions provided in Kosovan. The patient was discharged to work. The [...] filedocumented in this encounter Care Teams Certified Court Interpreter Relationship Specialty Start Date End Date Remedios Mehta MD [address] [place] [phone] PCP - General 02/19/09 01/04/15 documented as of this encounter
--- OUTSIDE RECORDS SUMMARY | 2024-09-17 15:29 | XMS_ITS | Encounter Summary ---
Author Organization [facility] Address [address] [place] [address] Care Team Providers Care Inspector And Hand Packager Name Role Phone Remedios Mehta MD Primary Care Provider [phone] Encounter Details Date Type Department Care Team (Late st Contact Info) Description 06/10/2005 Results Only [facility] Hematology & Oncology - [facility] [address] [place], [place] [id number] Julian Garza MD 111 [facility] [address] [place] [address] Social History Tobacco Use Types [...] 200 ? TEST PERFORMED OR REFERRED BY [facility] ? [address] ? [place] [address] ? Charge Out Clerk: ? Curtis Blake M.D. ? [facility] 06/10/2005 10:1 4 EDT 06/10/2005 10:44 EDT us Julian Garza MD HEMATOLOGY & PF4 ORDERABL ES Final Result [facility] [address] [place] [address] * SED. RATE:MISA (06/10/2005 10:14 EDT) Pathologist [facility] Sed. Rate Misa 10 0 - 20 mm/hr [facility] 06/10/2005 10:1 4 EDT 06/10/2005 10:44 EDT us Julian Garza MD HEMATOLOGY & PF4 ORDERABL ES Final Result [facility] [address] [place] [address] * RISTOCETIN COFACTOR (06/10/2005 10:14 EDT) Ristocetin Cofac 180Unit: %(Note) -- EXPECTED VALUES -- ? (Ref Range) 55 to 200 ? TEST PERFORMED OR REFERRED BY [facility] ? [address] ? [place] [address] ? Charge Out Clerk: ? Curtis Blake M.D. ? [facility] 06/10/2005 10:1 4 EDT 06/10/2005 10:44 EDT us Julian Garza MD HEMATOLOGY & PF4 ORDERABL ES Final Result Performing Organization Address [facility] de Phone Number [facility] [address] [place] [address] * PTT (06/10/2005 10:14 EDT) PTT 25 23 - 34 secs [facility] Comment:Therapeutic Heparin range: 70-105 seconds 06/10/2005 10:1 4 EDT 06/10/2005 10:44 EDT us Julian Garza MD HEMATOLOGY & PF4 ORDERABL ES Final Result Performing Organization Address [facility] de Phone Number [facility] [address] [place] [address] * PROTIME (06/10/2005 10:14 EDT) Pro Time 14.0 12.3 - 14.3 secs [facility] I.N.R. 1.1 0.9 - 1.1 Ratio [facility] Comment: Moderate Intensity Coumadin INR = 2.0-3.0 Adjustments in anticoagulant therapy dose should be based upon the INR and NOT the Pro Time. 06/10/2005 10:1 4 EDT 06/10/2005 10:44 EDT us Julian Garza MD HEMATOLOGY & PF4 ORDERABL ES Final Result Performing Organization Address [facility] Phone Number [facility] [address] [place] [address] * PLATELET FUNCTION ASSAY/ANALYSIS (06/10/2005 10:14 EDT) [facility] COL/EPI Cartridge 118 94 - 193 secs [facility] Comment: Platelet function results with closure [...] 06/10/2005 10:1 4 EDT 06/10/2005 10:44 EDT us Julian Garza MD HEMATOLOGY & PF4 ORDERABL ES Final Result Performing Organization Address [facility] Phone Number [facility] [address] [place] [address] * FIBRINOGEN (06/10/2005 10:14 EDT) [facility] Fibrinogen 296 220 - 410 mg/dl [facility] 06/10/2005 10:1 4 EDT 06/10/2005 10:44 EDT us Julian Garza MD HEMATOLOGY & PF4 ORDERABL ES Final Result Performing Organization Address [facility] de Phone Number [facility] [address] [place] [address] * D-DIMER (06/10/2005 10:14 EDT) [facility] D-Dimer 0.31 <0.50 ug FEU/ml [facility] 06/10/2005 10:1 4 EDT 06/10/2005 10:44 EDT us Julian Garza MD HEMATOLOGY & PF4 ORDERABL ES Final Result Performing Organization Address [facility] Co de Phone Number [facility] [address] [place] [address] * (ABNORMAL) C-REACTIVE PROTEIN (06/10/2005 10:14 EDT) [facility] C-Reactive Protein 1.2(H) <1.0 mg/dl [facility] 06/10/2005 10:1 4 EDT 06/10/2005 10:44 EDT us Julian Garza MD CHEMISTRY & BLOOD GAS ORD ERABLES Final Result Performing Organization Address [facility] de Phone Number [facility] [address] [place] [address] * (ABNORMAL) COMPREHENSIVE METABOLIC PANEL (06/10/2005 10:14 EDT) [facility] Potassium 4.3 3.5 - 5.0 mEq/L [facility] Sodium 140 136 - 145 mEq/L [facility] Chloride 103 96 - 110 mEq/L [facility] CO2 28 24 - 32 mEq/L [facility] Total Alkaline Phosphatase 62 38 - 126 U/L [facility] Bilirubin, Total 0.5 0.2 - 1.3 mg/dl [facility] AST 14(L) 15 - 46 U/L [facility] ALT 18 9 - 52 U/L [facility] Albumin 3.8 3.4 - 4.9 g/dl [facility] Total Protein 6.6 6.5 - 8.3 g/dl [facility] Creatinine 0.8 0.7 - 1.5 mg/dl [facility] BUN 15 10 - 26 mg/dl [facility] Calcium 8.7 8.5 - 10.5 mg/dl [facility] Calculated Calcium 9.3 8.5 - 10.5 mg/dl [facility] Glucose, Serum 82 70 - 110 mg/dl [facility] Fasting? No [facility] Albumin/Globulin Ratio 1.4 [facility] 06/10/2005 10:1 4 EDT 06/10/2005 10:44 EDT Julian Garza MD CHEMISTRY & BLOOD GAS ORD ERABLES Final Result [facility] [address] [place] [address] * (ABNORMAL) HEMAGRAM AND DIFFERENTIAL (06/10/2005 10:14 [...] % Lymphocytes 23.5 15.0 - 46.8 % [facility] [...] ABS Eosinophils 0.17 0.03 - 0.61 K/cmm [facility] ABS Basophils 0.07 0.01 - 0.11 K/cmm [facility] Type of Diff: Automated [facility] 06/10/2005 10:1 4 EDT 06/10/2005 10:44 EDT us Julian Garza MD PACKAGES & DNA PROBE ARNOLDO TREJO Final Result [facility] [address] [place] [address] documented in this encounter Visit Diagnoses Not on filedocumented in this encounter Care Teams Inspector And Hand Packager Relationship Specialty Start Date End Date Remedios Mehta MD [address] [place] [phone] PCP - General 02/19/09 01/04/15 documented as of this encounter
--- OUTSIDE RECORDS SUMMARY | 2024-09-17 15:29 | XMS_ITS | Encounter Summary ---
Author Organization [facility] Address [address] [place] [address] Care Team Providers Care Comptometrist Name Role Phone Remedios Mehta MD Primary Care Provider + [phone] Encounter Details Date Type Department Care Team (Late st Contact Info) Description 10/14/2002 Results Only [facility] [place] conversion [address] [place] [address] Rica Bai NP Social History Tobacco Use [...] Rubella IgG Scr Antibody not detected [facility] 10/14/2002 10:2 0 EST 10/14/2002 13:33 EST Rica Bai OIL WELL PUMPER HISTORICAL LAB FOR SQ LOAD Final Result Performing Organization Address City/[facility]/ZIP Co de Phone Number [facility] [address] [place] [address] * RUBEOLA IGG ANTIBODY (10/14/2002 10:20 EST) Rubeola IgG Ab Antibody detected [facility] 10/14/2002 10:2 0 EST 10/14/2002 13:33 EST Rica Bai OIL WELL PUMPER IMMUNOLOGY AND SEROLOGY ORD ERABLES Final Result Performing Organization Address [facility] Co de Phone Number [facility] [address] [place] [address] documented in this encounter Visit Diagnoses Not on filedocumented in this encounter Care Teams Comptometrist Relationship Specialty Start Date End Date Remedios Mehta MD [address] [place] [phone] PCP - General 02/19/09 01/04/15 documented as of this encounter
--- OUTSIDE RECORDS SUMMARY | 2024-09-17 15:29 | XMS_ITS | Encounter Summary ---
Author Organization [facility] Address [address] [place] [address] Care Team Providers Care Mortarman Name Role Phone Unavailable Primary Care Provider Unavailabl e Encounter Details Date Type Department Care Team (Latest Contact Info) Description 10/14/2002 19:42 EST Hospital Encounter [facility] - Other [address] [place] [address] Avel Mondragon MD Unknown, Provider, Discharge Disposition: [...]
--- OUTSIDE RECORDS SUMMARY | 2024-09-17 15:29 | XMS_ITS | Encounter Summary ---
Author Organization [facility] Address [address] [place] [address] Care Team Providers Care Pitting Machine Operator Name Role Phone Unavailable Primary Care Provider Unavailabl e Encounter Details Date Type Department Care Team (Late st Contact Info) Description 12/24/2004 12:54 EST Hospital Encounter [facility] [place] conversion [address] [place] [address] MD [address] [place] [address] Social History Tobacco Use Types Packs/Day [...]
--- OUTSIDE RECORDS SUMMARY | 2024-09-17 15:29 | XMS_ITS | Encounter Summary ---
Author Organization [facility] Address [address] [place] [address] Care Team Providers Care Protective Signal Operator Name Role Phone Unavailable Primary Care Provider Unavailabl e Encounter Details Date Type Department Care Team (Late st Contact Info) Description 01/30/2004 14:13 EST Hospital Encounter [facility] [address] [place] [address] Yovana Callejas MD [address] [place] [address] [address] [place] [address] Discharge Disposition: Auto Discharge Social [...] identified. Bone density is normal. /[facility] Procedure Note Wilfred Mcnair MD - 07/13/2009 [...] identified. Bone density is normal. /[facility] Yovana Callejas MD [facility] O RDERABLES Final Result * HAND 2 VIEWS (01/30/2004 15:01 EST) Anatomical Region Laterality Modality Other 01/30/2004 15:0 1 EST Narrative 07/13/2009 12:57 EDT [facility] PAIN AND SWELLING R/O EROSIONS Procedure Note Wilfred Mcnair MD - 07/13/2009 [facility] PAIN AND SWELLING R/O EROSIONS Yovana Callejas MD [facility] O RDERABLES Final Result documented in this encounter Visit Diagnoses Not on filedocumented in this encounter
--- OUTSIDE RECORDS SUMMARY | 2024-09-17 15:29 | XMS_ITS | Encounter Summary ---
Author Organization [facility] Address [address] [place] [address] Care Team Providers Care Eap Specialist Name Role Phone Remedios Mehta MD Primary Care Provider [phone] Encounter Details Date Type Department Care Team (Late st Contact Info) Description 01/30/2004 Results Only [facility] [address] [place], [place] [id number] Yovana Callejas MD [address] [place], [place] [address] [address] [place] [phone] Social History Tobacco Use Types Packs/Day [...] Misa 17 0 - 20 mm/hr [facility] 01/30/2004 14:5 6 EST 01/30/2004 15:01 EST us Yovana Callejas MD HEMATOLOGY & PF4 ORDERAB LES Final Result [facility] [address] [place] [address] * SS-B/LA ANTIBODY, IGG, SERUM (01/30/2004 14:56 EST) Autoantibodies to SS B/La <1.0Unit: U(Note) -- EXPECTED VALUES -- ? (Ref Range) Negative: ??<20.0 ? Borderline: ??20.0-24.9 ? Positive: >= 25.0 ? TEST PERFORMED OR REFERRED BY [facility] ? [address] ? [place] [address] ? Sound Ranging Crewmember: ? A. Hayden, M.D. ? [facility] 01/30/2004 14:5 6 EST 01/30/2004 15:01 EST us Yovana Callejas MD IMMUNOLOGY AND SEROLOGY ORDERABLES Final Result [facility] [address] [place] [address] * SS-A/RO ANTIBODY, IGG, SERUM (01/30/2004 14:56 EST) Autoantibodies to SS A/Ro 1.7Unit: U(Note) -- EXPECTED VALUES -- ? (Ref Range) Negative: ??<20.0 ? Borderline: ??20.0-24.9 ? Positive: >= 25.0 ? TEST PERFORMED OR REFERRED BY [facility] ? [address] ? [place] [address] ? Sound Ranging Crewmember: ? Curtis Blake M.D. ? [facility] 01/30/2004 14:5 6 EST 01/30/2004 15:01 EST us Yovana Callejas MD IMMUNOLOGY AND SEROLOGY ORDERABLES Final Result [facility] [address] [place] [address] * IGA (01/30/2004 14:56 EST) IgA 168 82 - 453 mg/dl [facility] 01/30/2004 14:5 6 EST 01/30/2004 15:01 EST Yovana Callejas MD CHEMISTRY & BLOOD GAS OR DERABLES Final Result Performing Organization Address [facility] de Phone Number [facility] [address] [place] [address] * ANTI DNA (DOUBLE STRAND) (01/30/2004 14:56 EST) Anti DNA (DS) Neg NEG Dils [facility] 01/30/2004 14:5 6 EST 01/30/2004 15:01 EST us Yovana Callejas MD IMMUNOLOGY AND SEROLOGY ORDERABLES Final Result Performing Organization Address [facility] Phone Number [facility] [address] [place] [address] * C4 COMPLEMENT (01/30/2004 14:56 EST) C4 Complement 26 16 - 38 mg/dl [facility] 01/30/2004 14:5 6 EST 01/30/2004 15:01 EST us Yovana Callejas MD CHEMISTRY & BLOOD GAS OR DERABLES Final Result Performing Organization Address [facility] de Phone Number [facility] [address] [place] [address] * C3 COMPLEMENT (01/30/2004 14:56 EST) C3 Complement 125 79 - 152 mg/dl [facility] 01/30/2004 14:5 6 EST 01/30/2004 15:01 EST us Yovana Callejas MD CHEMISTRY & BLOOD GAS OR DERABLES Final Result [facility] [address] [place] [address] * UA REFLEX (01/30/2004 14:56 EST) UA Billing Microscopic not indicated. [facility] 01/30/2004 14:5 6 EST 01/30/2004 15:01 EST us Yovana Callejas MD URINALYSIS ORDERABLES Fi nal Result Performing Organization Address [facility] Co de Phone Number [facility] [address] [place] [address] * (ABNORMAL) URINALYSIS (01/30/2004 14:56 EST) Color, UA Yellow [facility] Clarity, UA Clear [facility] Glucose, UA Norm NORM [facility] Bilirubin, UA Neg NEG [facility] Ketones, UA Trace(A) NEG [facility] Specific [place], Urine >1.030(H) 1.005 - 1.02 [facility] Blood, UA Neg NEG [facility] pH, UA 6.5 5.0 - 9.0 [facility] Protein, UA Neg NEG [facility] Urobilinogen, UA 1.0(A) NORM mg/dL [facility] Nitrite, UA Neg NEG [facility] Leuk Esterase Neg NEG [facility] Refractometer SG,Urine 1.029(H) 1.005 - 1.02 [facility] 01/30/2004 14:5 6 EST 01/30/2004 15:01 EST us Yovana Callejas MD URINALYSIS ORDERABLES Fi nal Result Performing Organization Address [facility] Co de Phone Number [facility] [address] [place] [address] documented in this encounter Visit Diagnoses Not on filedocumented in this encounter Care Teams Eap Specialist Relationship Specialty Start Date End Date Remedios Mehta MD [address] [place] [phone] PCP - General 02/19/09 01/04/15 documented as of this encounter
--- OUTSIDE RECORDS SUMMARY | 2024-09-17 15:29 | XMS_ITS | Encounter Summary ---
Author Organization [facility] Address [address] [place] [address] Care Team Providers Care Senior Software Development Manager Name Role Phone Unavailable Primary Care Provider Unavailabl e Encounter Details Date Type Department Care Team (Late st Contact Info) Description 02/23/2001 10:52 EDT - 02/23/2001 11:59 EDT Hospital Encounter [address] [address] Shailesh Hays MD [address] [place] [address] MD [address] [place] [address] Discharge Disposition: Auto Discharge Social [...]
--- OUTSIDE RECORDS SUMMARY | 2024-09-17 15:29 | XMS_ITS | Encounter Summary ---
Author Organization [facility] Address [address] [place] [address] Care Team Providers Care Erp Consultant Name Role Phone Remedios Mehta MD Primary Care Provider [phone] Encounter Details Date Type Department Care Team (Late st Contact Info) Description 04/07/2005 Before PRISM Converted Visit (Maple) [facility] - [place] conversion [address] [place] [address] Yovana Callejas MD [address] [place] [address] [phone] Social History Tobacco Use Types [...] is within normal limits. Neurologic: 5/5 hand quality assurance assessor. Positive Tinel's on the left. No atrophy [...] Yovana Callejas MD 04/20/2005 09:13 Myron Callejas, [facility] Cal[facility] MD Yovana Callejas MD - Yovana Callejas MD A - JW Job ID: Document ID: [id number] cc: MD Harsha Garcia MD documented in this encounter Plan of Treatment Not on file documented as of this encounter Visit Diagnoses Not on filedocumented in this encounter Care Teams Erp Consultant Relationship Specialty Start Date End Date Remedios Mehta MD [address] [place] [phone] PCP - General 02/19/09 01/04/15 documented as of this encounter
--- OUTSIDE RECORDS SUMMARY | 2024-09-17 15:29 | XMS_ITS | Encounter Summary ---
Author Organization [facility] Address [address] [place] [address] Care Team Providers Care Software Development Coordinator Name Role Phone Unavailable Primary Care Provider Unavailabl e Encounter Details Date Type Department Care Team (Late st Contact Info) Description 05/12/2004 10:52 EDT Hospital Encounter [facility] [place] conversion [address] [place] [address] MD [address] [place] [address] Social History Tobacco Use Types Packs/Day [...]
--- OUTSIDE RECORDS SUMMARY | 2024-09-17 15:29 | XMS_ITS | Encounter Summary ---
Author Organization [facility] Address [address] [place] [address] Care Team Providers Care Lamp Tester And Inspector Name Role Phone Unavailable Primary Care Provider Unavailabl e Encounter Details Date Type Department Care Team (Latest Contact Info) Description 01/17/2005 9:00 EST - 01/17/2005 11:59 EST Hospital Encounter [facility] conversion [address] [place] [address] Harsha Chong MD Discharge Disposition: Auto Discharge [...] OF IMPRESSION Juancarlos Mondragon MD IMG MAMMOGRAPHY ORDERABLE S Final Result documented in this encounter Visit Diagnoses Not on filedocumented in this encounter
--- OUTSIDE RECORDS SUMMARY | 2024-09-17 15:29 | XMS_ITS | Encounter Summary ---
Author Organization [facility] Address [address] [place] [address] Care Team Providers Care Pewter Finisher Name Role Phone Unavailable Primary Care Provider Unavailabl e Encounter Details Date Type Department Care Team (Late st Contact Info) Description 06/10/2005 13:02 EDT Hospital Encounter [facility] conversion [address] [place] [address] MD [address] [place] [address] Social History Tobacco Use Types Packs/Day [...]
--- OUTSIDE RECORDS SUMMARY | 2024-09-17 15:29 | XMS_ITS | Encounter Summary ---
Author Organization [facility] Address [address] [place] [address] Care Team Providers Care Needle Grader Name Role Phone Unavailable Primary Care Provider Unavailabl e Encounter Details Date Type Department Care Team (Late st Contact Info) Description 10/12/2000 17:27 EST Hospital Encounter [facility] - Other [address] [place] [address] Rica Bai NP Unknown, Provider, Social History Tobacco Use Types [...] Blood Pressure Asthma 133/57(2020 14:39 EDT) No Ledy Gibsonyl, SIGNS SALES REPRESENTATIVE LDL < 130 Result Component Hyperlipidemia 143( 4 11:54 EDT) No Gibson, Emily, SIGNS SALES REPRESENTATIVE documented as of this encounter Procedures Procedure [...] 10/12/2000 14:5 8 EST 10/12/2000 14:58 EST us Rica Bai NP CHEMISTRY & BLOOD GAS ORDER ONELIA Final Result [facility] [address] [place] [address] * (ABNORMAL) HEMAGRAM (10/12/2000 14:58 EST) WBC 6.74 4.0 - 12.4 K/cmm [facility] RBC 4.40 3.86 - 5.04 M/cmm [facility] Hemoglobin 13.7 11.6 - 15.2 gm/dl [facility] HCT 39.9 34.9 - 44.4 % [facility] MCV 91 81 - 98 fl [facility] MCH 31.1 26.7 - 33.3 pg [facility] MCHC 34.4 32.1 - 35.9 gm/dl [facility] PLT 349(H) 141 - 320 K/cmm [facility] RDW-CV 12.4 11.7 - 14.6 % [facility] 10/12/2000 14:5 8 EST 10/12/2000 14:58 EST us Rica Bai NP HEMATOLOGY & PF4 ORDERABLES Final Result [facility] [address] [place] [address] documented in this encounter Visit Diagnoses Not on filedocumented in this encounter Additional Health Concerns Infection Onset Date Last Indicated Resolved Time Rule-Out C. difficile 2021 04/16/20212020 13:40 EDT C. difficile 04/16/2021 04/16/2021 06/15/2021 22:1 5 EDT documented as of this encounter
--- OUTSIDE RECORDS SUMMARY | 2024-09-17 15:29 | XMS_ITS | Encounter Summary ---
Author Organization [facility] Address [address] [place] [address] Care Team Providers Care Hose Builder Name Role Phone Unavailable Primary Care Provider Unavailabl e Encounter Details Date Type Department Care Team (Late st Contact Info) Description 05/13/2004 9:45 EDT Hospital Encounter [facility] - Other [address] [place] [address] Yovana Callejas MD [address] [place] [address] [address] [place] [address] Social History Tobacco Use Types [...] TSH 1.64 0.35 - 5.50 uIU/ml [facility] 05/13/2004 9:46 EDT 05/13/2004 10:16 EDT us Yovana Callejas MD CHEMISTRY & BLOOD GAS OR DERABLES Final Result Performing Organization Address City/[facility] Co de Phone Number [facility] [address] [place] [address] * SED. RATE:ALYSSAERGREN (05/13/2004 9:46 EDT) Sed. Rate Westergren 11 0 - 20 mm/hr [facility] 05/13/2004 9:46 EDT 05/13/2004 10:16 EDT us Yovana Callejas MD HEMATOLOGY & PF4 ORDERAB LES Final Result Performing Organization Address [facility] Co de Phone Number [facility] [address] [place] [address] * HEMAGRAM AND DIFFERENTIAL (05/13/2004 9:46 EDT) WBC 6.02 4.0 - 12.4 K/cmm [facility] RBC 4.33 3.86 - 5.04 M/cmm [facility] [...] of Diff: Automated [facility] 05/13/2004 9:46 EDT 05/13/2004 10:16 EDT us Yovana Callejas MD PACKAGES & DNA PROBE ORD ERABLES Final Result [facility] [address] [place] [address] documented in this encounter Visit Diagnoses Not on filedocumented in this encounter Additional Health Concerns Infection Onset Date Last Indicated Resolved Time Rule-Out C. difficile 2021 04/16/20212020 13:40 EDT C. difficile 04/16/2021 04/16/2021 06/15/2021 22:1 5 EDT documented as of this encounter
--- OUTSIDE RECORDS SUMMARY | 2024-09-17 15:29 | XMS_ITS | Encounter Summary ---
Author Organization [facility] Address [address] [place] [address] Care Team Providers Care Optical Glass Inspector Name Role Phone Remedios Mehta MD Primary Care Provider [phone] Encounter Details Date Type Department Care Team (Late st Contact Info) Description 06/14/2004 Before PRISM Converted Visit (Maple) [facility] - Maple conversion [address] [place] [address] Ly Shipley [facility] PROJECT MANAGER [address] [place] [address] Social History Tobacco Use Types Packs/Day Years [...] on filedocumented in this encounter Care Teams Optical Glass Inspector Relationship Specialty Start Date End Date Remedios Mehta MD [address] [place] [phone] PCP - General 02/19/09 01/04/15 documented as of this encounter
--- OUTSIDE RECORDS SUMMARY | 2024-09-17 15:29 | XMS_ITS | Encounter Summary ---
Author Organization [facility] Address [address] [place] [address] Care Team Providers Care Plastic Die Maker Apprentice Name Role Phone Unavailable Primary Care Provider Unavailabl e Encounter Details Date Type Department Care Team (Latest Contact Info) Description 01/15/2004 13:06 EST Hospital Encounter [facility] - Maple conversion [address] [place] [address] Harsha Chong MD Discharge Disposition: Auto Discharge [...] documented in this encounter Results * SED. RATE:BYRONREN (01/20/2004 9:20 EST) Pathologist [facility] Sed. Rate Betoergren 18 0 - 20 mm/hr [facility] Comment: Note: Sample greater than 4 hrs old (but less than 12 hrs) when tested. If refrigerated, sample is stable when tested within 12 hours of collection. 01/20/2004 9:20 EST 01/20/2004 15:19 EST Elvi Bai BINDERY ASSISTANT HEMATOLOGY & PF4 ORDERABLES Final Result Performing Organization Address [facility] Co de Phone Number [facility] [address] [place] [address] * GLUCOSE, SERUM (01/20/2004 9:20 EST) Pathologist [facility] Glucose, Serum 84 70 - 110 mg/dl [facility] Comment:Fasting 01/20/2004 9:20 EST 01/20/2004 15:19 EST Elvi Bai NP CHEMISTRY & BLOOD GAS ORDER ONELIA Final Result Performing Organization Address [facility] de Phone Number [facility] [address] [place] [address] * ARTHRITIS 1 (01/20/2004 9:20 EST) Pathologist [facility] Anti Nuclear Ab Positive at 40 dils, titer to follow. 0 - 40 Dils [facility] Rheumatoid Factor <20 <20 IU/ml [facility] 01/20/2004 9:20 EST 01/20/2004 15:19 EST Elvi Bai NP IMMUNOLOGY AND SEROLOGY ORD ERABLES Final Result Performing Organization Address [facility] Co de Phone Number [facility] [address] [place] [address] * (ABNORMAL) GAYLE TITER (01/20/2004 9:20 EST) Pathologist [facility] GAYLE Titer 80(H) 0 - 40 dils [facility] Comment:Speckled pattern 01/20/2004 9:20 EST 01/20/2004 15:19 EST us Elvi Bai NP IMMUNOLOGY AND SEROLOGY ORD ERABLES Final Result [facility] [address] [place] [address] * MA MAMMO SCREENING DIGITAL (01/15/2004 13:35 [...] ASSESSMENT - NEGATIVE END OF IMPRESSION us Elvi Bai NP IMG MAMMOGRAPHY ORDERABLES Final Result documented in this encounter Visit Diagnoses Not on filedocumented in this encounter
--- OUTSIDE RECORDS SUMMARY | 2024-09-17 15:29 | XMS_ITS | Encounter Summary ---
Author Organization [facility] Address [address] [place] [address] Care Team Providers Care Heel Varnisher Name Role Phone Unavailable Primary Care Provider Unavailabl e Encounter Details Date Type Department Care Team (Late st Contact Info) Description 06/06/2005 9:55 EDT Hospital Encounter [address] [address] Yovana Callejas MD [address] [place] [address] [address] [place] [address] Social History Tobacco Use Types [...] UA Neg NEG [facility] Specific [place], Urine 1.025 1.005 - 1.02 [facility] [...] 06/06/2005 10:0 1 EDT 06/06/2005 10:03 EDT us Yovana Callejas MD URINALYSIS ORDERABLES Fi nal Result [facility] [address] [place] [address] documented in this encounter Visit Diagnoses Not on filedocumented in this encounter Additional Health Concerns Infection Onset Date Last Indicated Resolved Time Rule-Out C. difficile 2021 04/16/20212020 13:40 EDT C. difficile 04/16/2021 04/16/2021 06/15/2021 22:1 5 EDT documented as of this encounter
--- OUTSIDE RECORDS SUMMARY | 2024-09-17 15:29 | XMS_ITS | Encounter Summary ---
Author Organization [facility] Address [address] [place] [address] Care Team Providers Care Leather Shaver Name Role Phone Unavailable Primary Care Provider Unavailabl e Encounter Details Date Type Department Care Team (Latest Contact Info) Description 06/23/2005 8:43 EDT - 06/23/2005 11:59 EDT Hospital Encounter [facility] Emergency Department - [facility] [address] [place] [address] Emergency, Default, MD Discharge Disposition: Home or [...] tears. /anuj Panda [place] MD IMG DIAGNOSTIC IMAGING ORDERA BLES Final Result documented in this encounter Visit Diagnoses Not on filedocumented in this encounter
--- OUTSIDE RECORDS SUMMARY | 2024-09-17 15:29 | XMS_ITS | Encounter Summary ---
Author Organization [facility] Address [address] [place] [address] Care Team Providers Care Front End Engineer Name Role Phone Unavailable Primary Care Provider Unavailabl e Encounter Details Date Type Department Care Team (Late st Contact Info) Description 12/01/2000 10:40 EST Hospital Encounter [facility] - Maple conversion [address] [place] [address] Yonathan Pantoja MD [address] [facility], [address] [place] [address] Social History Tobacco Use Types [...]
--- OUTSIDE RECORDS SUMMARY | 2024-09-17 15:29 | XMS_ITS | Encounter Summary ---
Author Organization [facility] Address [address] [place] [address] Care Team Providers Care Assistant Production Editor Name Role Phone Unavailable Primary Care Provider Unavailabl e Encounter Details Date Type Department Care Team (Late st Contact Info) Description 02/21/2001 10:29 EDT Hospital Encounter [address] [address] Bebo Phelan [address] [place] [phone] Social History Tobacco Use Types Packs/Day Years [...] the sphenoid sinuses. D: 02-23-01 T: 02-26-01 / Procedure Note Pk Connell MD - 09/08/2009 [...] the sphenoid sinuses. D: 02-23-01 T: 02-26-01 / Mauro Lane MD IMG DIAGNOSTIC IMAGING ORDERAB LES Final Result documented in this encounter Visit Diagnoses Not on filedocumented in this encounter Additional Health Concerns Infection Onset Date Last Indicated Resolved Time Rule-Out C. difficile 2021 04/16/20212020 13:40 EDT C. difficile 04/16/2021 04/16/2021 06/15/2021 22:1 5 EDT documented as of this encounter
--- OUTSIDE RECORDS SUMMARY | 2024-09-17 15:29 | XMS_ITS | Encounter Summary ---
Author Organization [facility] Address [address] [place] [address] Care Team Providers Care Lean Manufacturing Specialist Name Role Phone Remedios Mehta MD Primary Care Provider [phone] Encounter Details Date Type Department Care Team (Late st Contact Info) Description 12/31/2004 Before PRISM Converted Visit (Map[facility] - Maple conversion [address] [place] [address] MD [address] [place] [address] Social History Tobacco Use Types Packs/Day Years Used Date Smoking Tobacco: Never Assessed Comments Unknown Sex and Gender Information Value Date Recorded Sex Assigned at Not on file Legal Sex Female 17:25 EST Gender Identity Female 2021 11:19 EDT Sexual Orientation Not on file documented as of this encounter Progress Notes * Senthil, Conv Director Athletic - 06/08/2011 1118 EDT PULMONARY MEDICINE PROGRESS [...] and she is due to see her veneer sample maker relatively soon. She is also complaining ofleft [...] 12/31/2004 17:20:00. -JUAN ANTONIO LANE MD - [facility] Voice ID: [id number] Document ID: [id number] CC: DEBBIE MARIE MD, REFERRING PHYSICIAN documented in this encounter Plan of Treatment Not on file documented as of this encounter Visit Diagnoses Not on filedocumented in this encounter Care Teams Lean Manufacturing Specialist Relationship Specialty Start Date End Date Remedios Mehta MD [address] [place] [phone] PCP - General 02/19/09 01/04/15 documented as of this encounter
--- OUTSIDE RECORDS SUMMARY | 2024-09-17 15:29 | XMS_ITS | Encounter Summary ---
Author Organization [facility] Address [address] [place] [address] Care Team Providers Care Pump Machine Operator Name Role Phone Unavailable Primary Care Provider Unavailabl e Encounter Details Date Type Department Care Team (Late st Contact Info) Description 07/05/2002 8:40 EDT Hospital Encounter [facility] - Other [address] [place] [address] MD [address] [place] [phone] Unknown, Provider, Social History Tobacco Use Types [...] EDT Mauro Lane MD CHEMISTRY & BLOOD GAS ORDERABL ES Final Result Performing Organization Address City/State/[facility] Co de Phone Number [facility] [address] [place] [address] documented in this encounter Visit Diagnoses Not on filedocumented in this encounter Additional Health Concerns Infection Onset Date Last Indicated Resolved Time Rule-Out C. difficile 2021 04/16/20212020 13:40 EDT C. difficile 04/16/2021 04/16/2021 06/15/2021 22:1 5 EDT documented as of this encounter
--- OUTSIDE RECORDS SUMMARY | 2024-09-17 15:29 | XMS_ITS | Encounter Summary ---
Author Organization [facility] Address [address] [place] [address] Care Team Providers Care Decision Unit Rn Name Role Phone Remedios Mehta MD Primary Care Provider [phone] Encounter Details Date Type Department Care Team (Late st Contact Info) Description 03/18/2002 Results Only [facility] - [place] conversion [address] [place] [address] Elvi Bai NP Social History Tobacco Use [...] ? CHERELLE HUSAIN ? Accession #: ? [id number] : ? 1960 (Age: 41) ??F ?Collect Date: ? 03/18/2002 Location: ? [facility] ? Receive Date: ? 03/19/2002 Provider: ?ELVI BAI NP Copy to: ? Specimen/Source: ?ThinPrep Pap Test, [...] Date: ??03/21/2002 14:14 End of Report [facility] 03/18/2002 03/19/2002 us Elvi Richardson LIBRARY CIRCULATION ASSISTANT PATHOLOGY ORDERABLES Final Result [facility] [address] [place] [address] documented in this encounter Visit Diagnoses Not on filedocumented in this encounter Care Teams Decision Unit Rn Relationship Specialty Start Date End Date Remedios Mehta MD [address] [place] [phone] PCP - General 02/19/09 01/04/15 documented as of this encounter
--- OUTSIDE RECORDS SUMMARY | 2024-09-17 15:29 | XMS_ITS | Encounter Summary ---
Author Organization [facility] Address [address] [place] [address] Care Team Providers Care Fiscal Manager Name Role Phone Unavailable Primary Care Provider Unavailabl e Encounter Details Date Type Department Care Team (Latest Contact Info) Description 05/30/2004 16:45 EDT - 06/29/2004 11:59 EDT Hospital Encounter [facility] - Other [address] [place] [address] Harsha Chong MD Discharge Disposition: Auto Discharge [...]
--- OUTSIDE RECORDS SUMMARY | 2024-09-17 15:29 | XMS_ITS | Encounter Summary ---
Author Organization [facility] Address [address] [place] [address] Care Team Providers Care Aquatic Centre Manager Name Role Phone Unavailable Primary Care Provider Unavailabl e Encounter Details Date Type Department Care Team (Latest Contact Info) Description 03/11/2002 3:07 EDT - 03/11/2002 11:59 EDT Hospital Encounter [facility] Emergency Department - [facility] [address] [place] [address] Emergency, Default, MD Discharge Disposition: Home or [...] other abnormality seen. D: 03-11-02 T: 03-12-02 Narrative 08/12/2009 1:27 EDT INCREASED SOB. ??R/O [...] No other abnormality seen. D: 03-11-02 T: 03-12-02am us Davdi Ortega MD IMG DIAGNOSTIC IMAGING OR DERABLES Final Result * LIPASE (03/11/2002 3:20 EDT) Lipase 185 0 - 210 U/L [facility] 03/11/2002 3:20 EDT 03/11/2002 3:24 EDT us Default Emergency CHEMISTRY & BLOOD GAS ORDER ONELIA Final Result [facility] [address] [place] [address] * HOLD (03/11/2002 3:20 EDT) Hold Sample for coagulation will be discarded after 4 hours EDTA for hematology will be discarded after 48 hours, differential not available after 12 hours. [facility] 03/11/2002 3:20 EDT 03/11/2002 3:24 EDT us Default Emergency MD CHEMISTRY & BLOOD GAS ORDER ONELIA Final Result [facility] [address] [place] [address] documented in this encounter Visit Diagnoses Not on filedocumented in this encounter
--- OUTSIDE RECORDS SUMMARY | 2024-09-17 15:29 | XMS_ITS | Encounter Summary ---
Author Organization [facility] Address [address] [place] [address] Care Team Providers Care Water Trainer Name Role Phone Unavailable Primary Care Provider Unavailabl e Encounter Details Date Type Department Care Team (Late st Contact Info) Description 04/04/2001 10:51 EDT Hospital Encounter [facility] - Other [address] [place] [address] Avel Mondragon MD Unknown, Provider, MD Social History Tobacco [...] Asthma 133/57(2020 14:39 EDT) No Gibson, Emily, BUDGET ANALYST LDL < 130 Result Component Hyperlipidemia 143( 4 11:54 EDT) No Gibson, Emily, BUDGET ANALYST documented as of this encounter Procedures Procedure [...] LAB 04/04/2001 9:30 EDT 04/04/2001 15:22 EDT us Avel Mondragon MD CHEMISTRY & BLOOD GAS ORD ERABLES Final Result [facility] [address] [place] [address] * LIPID PROFILE (INCLUDES CHOLESTEROL, TRIGLYCERIDES, HDL, LDL) (04/04/2001 9:30 EDT) Cholesterol 219 mg/dl [facility] Comment: Desirable:<200 Borderline:200-239 High Risk:>up=745 Fasting Triglycerides 100 35 - 160 mg/dl [facility] Comment:Fasting HDL 40 mg/dl [facility] Comment: Highly Desirable:>60 Desirable:35-60 High Risk:<35 Fasting LDL, Calculated 159 mg/dl [facility] Comment: Desirable:<130 Borderline:130-159 High Risk:>fn=079 Fasting Chol/HDL Ratio 5.5 Fasting [facility] 04/04/2001 9:30 EDT 04/04/2001 15:22 EDT us Avel Mondragon MD CHEMISTRY & BLOOD GAS ORD ERABLES Final Result Performing Organization Address City/[facility]/ZIP Co de Phone Number [facility] [address] [place] [address] * COMPREHENSIVE METABOLIC PANEL (04/04/2001 9:30 EDT) Pathologist [facility] Potassium 4.2 3.5 - 5.0 mEq/L [facility] [...] LAB 04/04/2001 9:30 EDT 04/04/2001 15:22 EDT us Avel Mondragon MD CHEMISTRY & BLOOD GAS ORD ERABLES Final Result Performing Organization Address City/[facility]/ZIP Co de Phone Number [facility] [address] [place] [address] * (ABNORMAL) HEMAGRAM (04/04/2001 9:30 EDT) WBC [...] LAB 04/04/2001 9:30 EDT 04/04/2001 15:22 EDT us Avel Mondragon MD HEMATOLOGY & PF4 ORDERABL ES Final Result Performing Organization Address City/[facility] Co de Phone Number [facility] [address] [place] [address] documented in this encounter Visit Diagnoses Not on filedocumented in this encounter Additional Health Concerns Infection Onset Date Last Indicated Resolved Time Rule-Out C. difficile 2021 04/16/20212020 13:40 EDT C. difficile 04/16/2021 04/16/2021 06/15/2021 22:1 5 EDT documented as of this encounter
--- OUTSIDE RECORDS SUMMARY | 2024-09-17 15:29 | XMS_ITS | Encounter Summary ---
Author Organization [facility] Address [address] [place] [address] Care Team Providers Care Bagging Machine Operator Name Role Phone Remedios Mehta MD Primary Care Provider [phone] Encounter Details Date Type Department Care Team (Late st Contact Info) Description 05/23/2005 Before PRISM Converted Visit (Maple) [facility] - Maple conversion [address] [place] [address] Yovana Callejas MD [address] [place] [address] [phone] Social History Tobacco Use Types [...] She was also seen at [facility] last week and told she had [...] left upper quadrant discomfort. Neurologic: 5/5 hand customer experience leader, shoulder abduction, hip flexion and knee extension. [...] P - SA Job ID: Document ID: [id number] cc: Harsha Chong MD FA-Hematology/Oncology, [place] [address], [facility]* documented in this encounter Plan of Treatment Not on file documented as of this encounter Visit Diagnoses Not on filedocumented in this encounter Care Teams Bagging Machine Operator Relationship Specialty Start Date End Date Remedios Mehta MD [address] [place] [phone] PCP - General 02/19/09 01/04/15 documented as of this encounter
--- OUTSIDE RECORDS SUMMARY | 2024-09-17 15:30 | XMS_ITS | Continuity of Care Document ---
Author Organization [facility]. Address [address] [place] [address] Phone Care Team Providers Care Cupola Melter Helper Name Role Phone Eulalia JARVIS, Christiano Unavailable Unavailable Allergies, Adverse Reactions, Alerts Substance Reaction Status Criticality wheat Active No Information soy Active No Information Sulfa (Sulfonamide Antibiotics) Active No Information CODEINE HCL Active No Information PENICILLIN Active No Information aspirin Active No Information Medications Medication Instructions Dosage Effective Dates (start - stop) Status Comments Plavix 75 mg tablet take 1 tablet by oral route every day 75 MG - Active TRAZODONE HCL (unknown strength) take 1 tablet by oral route 2 times every day with food Not Available - Active METFORMIN HCL (unknown strength) take 1 tablet by oral route 2 times every day with morning and evening meals Not Available - Active CYMBALTA (unknown strength) take 1 capsule by oral route 2 times every day Not Available - Active Procedures Procedure Date OPHTHALMOLOGICAL SERVICE;COMPREHENSIVE, NEW PATIENT SCODI, Optic Nerve VISUAL FIELD EXAMINATION EXTENDED Advance Directives Directive Yes / No Effective Date File Name No Information Encounters Encounter Description Practice Location Reason(s) For Visit Diagnoses Date Provider Providers Copied on Encounter [facility] [address], [place], [address], [place] tel:[phone] [facility] (chief complaint) PRES (posterior reversible encephalopathy syndrome)Pseudop hakia of both eyes Eulalia Alvarado. [address], [place], [place], [id number] , [place]. tel:[phone] Referring Provider: Christiano Kennedy, [address], [place], [address] . tel:[phone] Family History Family Member Type Diagnosis Age At Onset No Information Payers Payer name Insurance type Covered green party ID Jeison canela(s) [facility] [id number] Social History Type Description Quantity Date Captured [...] Instruction Additional Infor mation Impression/Plan Related to Pseud ophakia of both eyes Impression/Plan Related to PRES (posterior reversible encephalopathy syndrome) Assessments Type Assessment Date assessment PRES (posterior reversible encep halopathy syndrome) Nov-11-2021 impression PRES (posterior reversible encep halopathy syndrome): I67.83 assessment Pseudophakia of both eyes impression Pseudophakia of both eyes: Z96.1 Patient Care Teams Name Effective Dates (start - stop) Status Members No Information
--- OUTSIDE RECORDS SUMMARY | 2024-09-17 15:30 | XMS_ITS | Encounter Summary ---
Author Organization [facility] [place] [address] Care Team Providers Care Corporate Librarian Name Role Phone Unknown Primary Care Provider Unavailabl e Encounter Details Date Type Department Care Team (Late st Contact Info) Description 07/21/2022 Ancillary Procedure Radiology Library at [facility] [place] [address] Elly Ling APRN [facility] [place] [address] Social History Tobacco Use Types Packs/Day Years [...] Ling APRN IMG FILM LIBRARY ORD ERABLES [facility] [place] documented in this encounter Visit Diagnoses Not on filedocumented in this encounter Care Teams Corporate Librarian Relationship Specialty Start Date End Date Unknown None PCP - General 09/28/14 10/18/22 documented as of this encounter
--- OUTSIDE RECORDS SUMMARY | 2024-09-17 15:30 | XMS_ITS | Encounter Summary ---
[place] [address] Care Team Providers Care Shop Fitter Name Role Phone Elly Ling ELKIN Primary Care Provider [phone] Reason for Visit * Reason Comments Results Neuropsych eval Encounter Details Date Type Department Care Team (Latest Contact Info) Description 11/16/2023 4:00 PM EST TH Visit (TeleHealth) Psychiatry [place] [address] Gokul Ballesteros, PhD Mild neurocognitive disorder due [...] EVALUATION FEEDBACK NOTE Patient Name: Cherelle Jacobs#: [id number] Date of : 1960 Age: 63 years Sex: Female Referred By: Gifty Black MD Date of Evaluation: 09/19/2023 Date of Feedback: 11/16/2023 Ms. Husain gave permission for and was seen today via a telehealth (telephone) visit to discuss her 09/19/2023 [facility] neuropsychological evaluation. During this visit, she was located in [place] during feedback. 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
--- OUTSIDE RECORDS SUMMARY | 2024-09-17 15:30 | XMS_ITS | Encounter Summary ---
Author Organization [facility] [place] [address] Care Team Providers Care Chemical Laboratory Assistant Name Role Phone Elly Ling APRN Primary Care Provider [phone] Encounter Details Date Type Department Care Team [...] filedocumented in this encounter Care Teams Chemical Laboratory Assistant Relationship Specialty Start Date End Date [place] [address] PCP - General Family Medicine 10/19/22 documented as of this encounter
--- OUTSIDE RECORDS SUMMARY | 2024-09-17 15:30 | XMS_ITS | Clinical Summary ---
Author Organization [facility] Address [facility] [place] [address] Care Team Providers Care Taxicab Coordinator Name Role Phone SushilElly angulo Evie GRANGER Primary Care Provider [phone] Allergies Active Allergy Reactions Criticality Noted Date [...] 11/03/2022 Active fluticasone propionate (Flonase) 50 mcg/actuation [place], Suspension 1 spray by Nasal route Daily. [...] 110, factor V Leiden negative, prothrombin gene 32664X negative, PTT 32. Protein S 118,?? b.?? [...] HIV screen 1979 Hepatitis C Screening 1979 Tetanus/Diphtheria/Pertussis Vaccines (1 - Tdap) 04/14 HPV test 1991 PAP Smear 1991 Breast Cancer Share Decision Needed 2001 Breast Cancer screening 2001 Zoster vaccine (1 of 2) 2011 Advance Directive 2016 RSV Vaccine (1 - Risk 60-74 years 1-dose series) 04/14 DM Creatinine yearly 01/05/2024 01/04/2023 Covid-19 Vaccine (1 - 2023- season) 2024 Influenza (Flu) vaccine (1 o f 1 - Influenza standard series) 06/30/2024 Diabetes Screening (HgbA1C or Glucose) Discontinued Procedures Procedure Name Priority Date/Time Associated Diagnosis Comments BASIC METABOLIC PANEL Routine 01/04/2023 3:42 PM EST Ataxia from Last 3 Months or Most Recently Relevant to Health Maintenance Results * (ABNORMAL) Basic Metabolic Panel (non-fasting) (01/04/2023 3:42 PM EST) Glucose 74 65 - 199 mg/dL [facility] Comment:Diabetes: >=200 mg/d L plus symptoms Blood Urea Nitrogen 20(H) 8 - 18 mg/dL [facility] Creatinine 0.98 0.70 - 1.20 mg/dL [facility] Sodium 144 135 - 145 mmol/L [facility] Potassium 4.1 3.5 - 5.0 mmol/L [facility] Comment: Please note: ??Patients with WBC >100,000 may have falsely elevated Potassium levels. ??For accurate Potassium quantification in these patients send serum separator tube (gold top) for subsequent determinations. ??Contact the Clinical Chemistry Laboratory if there are any questions. Chloride 106 98 - 107 mmol/L [facility] Carbon Dioxide 28 22 - 31 mmol/L [facility] Anion Gap 10 5 - 15 mmol/L [facility] Calcium 9.0 8.5 - 10.5 mg/dL [facility] Est Glomerular Filtration Rate 66 >=60 mL/min/1. 73 m?? [facility] Comment: This patient's estimated GFR [...] In Lab Sanju Martinez MD CHEMISTRY ORDERABLES [facility] [place] [address] from Last 3 Months or Most Recently Relevant to Health Maintenance Care Teams Taxicab Coordinator Relationship Specialty Start Date End Date Elly Ling, PAINTING [place] [address] PCP - General Family Medicine 10/19/22
--- OUTSIDE RECORDS SUMMARY | 2024-09-17 15:30 | XMS_ITS | Encounter Summary ---
Author Organization [facility] Address [address] [place] [address] Care Team Providers Care Senior Credit Analyst Name Role Phone Unavailable Primary Care Provider Unavailabl e Encounter Details Date Type Department Care Team (Latest Contact Info) Description 05/18/2000 8:34 EDT - 05/18/2000 11:59 EDT Hospital Encounter [facility] - Other [address] [place] [address] Rica Bai NP Unknown, Provider, MD Discharge Disposition: Auto Discharge [...] 05/18/2000 9:30 EDT 05/18/2000 14:03 EDT Rica Bai REO ASSET MANAGER CHEMISTRY & BLOOD GAS ORDER ONELIA Final Result Performing Organization Address [facility] [[email or web address]] de Phone Number [facility] [address] [place] [address] * LIPID PROFILE (INCLUDES CHOLESTEROL, TRIGLYCERIDES, HDL, LDL) (05/18/2000 9:30 EDT) Cholesterol 216 mg/dl [facility] Comment: Desirable:<200 Borderline:200-239 High Risk:>me=025 Fasting Triglycerides 106 35 - 160 mg/dl [facility] Comment:Fasting HDL 30 mg/dl [facility] Comment: Highly Desirable:>60 Desirable:35-60 High Risk:<35 Fasting LDL, Calculated 165 mg/dl [facility] Comment: Desirable:<130 Borderline:130-159 High Risk:>mr=019 Fasting Chol/HDL Ratio 7.2 Fasting [facility] 05/18/2000 9:30 EDT 05/18/2000 14:03 EDT Rica Bai REO ASSET MANAGER CHEMISTRY & BLOOD GAS ORDER ONELIA Final Result Performing Organization Address [facility] [[email or web address]] de Phone Number [facility] [address] [place] [address] * HEMOGLOBIN A1C (05/18/2000 9:30 EDT) Hemoglobin A1C 5.3 % [facility] Comment: Glucose Control Index Poor=greater than 10% Fair=9-10% Good=8-9% Excellent=7-8% Near Normal=6-7% Non-Diabetic=less than 6% Fasting 05/18/2000 9:30 EDT 05/18/2000 14:03 EDT Rica Bai REO ASSET MANAGER CHEMISTRY & BLOOD GAS ORDER ONELIA Final Result Performing Organization Address City/[facility] Co de Phone Number [facility] [address] [place] [address] documented in this encounter Visit Diagnoses Not on filedocumented in this encounter
--- OUTSIDE RECORDS SUMMARY | 2024-09-17 15:30 | XMS_ITS | Encounter Summary ---
Author Organization [facility] Address [facility] [place] [address] Care Team Providers Care Pinking Sewing Machine Operator Name Role Phone Elly Ling ELKIN Primary Care Provider [phone] Reason for Visit * Reason Comments Cognitive Problems Neuropsych eval * Psychiatric (Routine) - Closed Specialty Diagnoses / Procedures Referred By Joao proctor Referred To Contact Psychiatry Diagnoses Other amnesia Gifty Lamas MD [facility] [address] [place] [address] Barney Mg, PhD [facility] [place] [address] Referral ID Status Reason Start Date Expiration Date V isits Requested Visits Authorized [id number] Closed Consult, Test & Treat PCP Updated and/or Approved 11/28/2022 11/28/2023 6 6 Encounter Details Date Type Department Care Team (Latest Contact Info) Description 09/19/2023 9:15 AM EST Office Visit Psychiatry [place] [address] Gokul Ballesteros, PhD Mild neurocognitive disorder due [...] White, cisgender woman. This is her first [facility] neuropsychological evaluation. She was referred in the [...] These problems began after she moved to [place] in 2015 and have fluctuated over time. Her symptoms have been generally improving since she began living with her sister about 1.5 years ago andher symptoms appear to improve when she is living with family (in [place] or [place]), and worsen when she isnot (in [place]). She was unsure of any other potential [...] fall of 2020. She was hospitalized at [facility] ([place], [place]) with narrow complex tachycardia and atrial flutter believed to be secondary to sepsis, as well as vision disturbances. Workup at thattime found acute/early subacute ischemic focus involving the inferior cerebellar vermis with involve ment of the nodulus. Subsequent hospitalization at [facility] ([place], [place])attributed her symptoms (ongoing blurred vision, gait [...] 0.6x1x0.75cm (in 06/2022). She was referred to [facility] Neurology on 01/04/2023 in the context of [...] Occupational History: Ms. Husain was born in [facility] [place] [facility], and raised in [place]. To her knowledge, her gestation and were normal, although she believes her mom drank alcohol throughout the . She was unsure whether she reached developmental milestones at appropriate ages. [place] is her primary language. She earned a [...] benefits. 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 She has been living with her sister for a little over a year, which has not been stressful for her. She desires to move out and is on the waitlist to get a studio apartment at the [facility] in [place]. She reported having a ???good?? social support [...] Adult Version (BRIEF-A); Cookie Theft (from BDAE); [place] Naming Test, 2nd Edition (BNT-2); Brief Visuospatial [...] (TFLS); Test of Practical Judgment (TOPJ, Informant); [place] Making Test (TMT); Jared Adult Intelligence Scale, [...] 30 < 2 SCORE DESCRIPTOR Functional Screening [place] Functional Living Scale Raw (Percentile) Time 9 [...] Average Serial Clustering 0.5 (11) Average Learning Sweet Grass 0.2 (4) Borderline BVMT-R: Raw (Percentile) Total [...] from engaging in counseling at this time direct support professional caregiver her current affective and psychosocial distress. If [...] Lisa Sampson PsyD Postdoctoral Fellow in Neuropsychology Shredder Tender Peatwind farm engineer A postdoctoral fellow in neuropsychology was involved in test administration, interpretation, and report development. The interpretation and integration of pertinent clinical information found in this report was directed and verified by the supervising neuropsychologist/licensed clinical psychologist. 00815: 1 hour (1 unit) 18187: 2 hours 5 minutes (2 units) 27896: 30 minutes (1 unit) 00381: 5 hours 27 minutes (11 units) Billing [...] disorder documented in this encounter Care Teams Pinking Sewing Machine Operator Relationship Specialty Start Date End [place] [address] PCP - General Family Medicine 10/19/22 documented as of this encounter
--- OUTSIDE RECORDS SUMMARY | 2024-09-17 15:30 | XMS_ITS | Continuity of Care Document ---
Author Organization [facility] Address [address] [place] [address] Phone Care Team Providers Care Heat Transfer Technician Name Role Phone Mikebenji ROSA, Geoffrey Unavailable [...] 2nd Cataract; Laser A Offic/outpt E&m Estab Mod-nm 2 19 Offic/outpt E&m Estab Mod-nm 2 19 YAG Cap Discission 2nd Cataract; Laser A Refraction CPTR OPHTH DX IMG POST [facility] Offic/outpt E&m Estab Mod-nm 2 19 Offic/outpt E&m Estab Mod-nm 2 19 CPTR OPHTH DX IMG POST [...] Or Bilateral CPTR OPHTH DX IMG POST [facility] Ophth Serv: Med Exam; Comp New 16 Ophth Serv: Med Exam; Comp New 16 IOL MASTER/Ophth/biometry IOL MASTER/Ophth/biometry IOL MASTER/Ophth/biometry CPTR OPHTH DX IMG POST [facility] Computerized Corneal Kirk-Unilateral Or Bilateral Internal Eye [...] Copied on Encounter OFFICE/OUTPA TIENT VISIT EST [facility] MARIA, [address] [facility] [place], [id number], [place] [phone] [facility] Diabetic eye exam (chief complaint) Type 2 diabetes mellitus without complication sBilateral vitreous detachment of eyesDrusen (degenerativ e) of macula, bilateralVis ual field defect 0 [place] Geoffrey. [address] [facility] [address], [place], [place], [id number], . tel:[phone] Referring Provider: Michael Palacio, [address] [place], [address]. tel:[phone] Offic/outpt E&m Estab Low-mod [facility], [address] [place] [address], [id number], [place] tel:[phone] [facility] [address] Follow Up of Visual Field Defect (chief complaint) Visual field defectDry eye syndrome of bilateral lacrimal glands [address] Mariana [address], [place], [place], [id number], [place]. tel:[phone] Referring Provider: Michael Palacio, [address] [place] [address], [address]. tel:[phone] Offic/outpt E&m Estab Low-mod [facility], [address] [place] [address], [id number], [place] tel:[phone] [facility] [address] Follow Up of Visual Field Defect (chief complaint) Visual field defectOther secondary cataract, bilateralPre sbyopia 9 Mariana Hale[address], [place], [place], [id number], [place]. tel:[phone] Referring Provider: Geoffrey Peña, [address], [place], [address]. tel:[phone] Offic/outpt E&m Estab Mod-hi 2 [facility] [place], [address] [place] [address], [id number], [place] tel:[phone] [facility] decreased vision (chief complaint) Other secondary cataract, bilateral [address], [place], [place], [id number], [place]. tel:[phone] Referring Provider: Geoffrey Peña, [address], [place], [address]. tel:[phone] Offic/outpt E&m Estab Mod-hi 2 [facility], [address] [place] [address] [place], [place], [id number], tel:[phone] [facility] [address] floaters (chief complaint) Bilateral vitreous detachment of eyesOther secondary cataract, bilateralHea dachePresbyo piaVisual field defect 9 [place] Hale. [address] [place] [address] fritz [address], [place], [place], [id number], [place]. tel:[phone] Referring Provider: Michael Palacio, [address] [place] [address], [address]. tel:[phone] [facility], [address] [place] [address] [place], [place], [id number], tel:[phone] [facility] MARIA Combined forms of age-related cataract, right eyePresence of intraocular lens 6 David Sloan. [address] [place] [address] [place], [place], [id number], [place]. tel:[phone] Referring Provider: Michael Palacio, [address] [place] [address], [address]. tel:[phone] [facility], [address] [place] [address] [place], [place], [id number], tel:[phone] [facility] No Information 6 David Sloan. [address] [place] [address] [place], [place], [id number], [place]. tel:[phone] Referring Provider: Michael Palacio, [address] [place] [address], [address]. tel:[phone] [facility], [address] [place] [address] [place], [place], [id number], [place] tel:[phone] [facility] MARIA Presence of intraocular lensCombined forms of age-related cataract, left eye Jul-1 5-201 6 David Sloan. [address], [place], [place], [id number], . tel:[phone] Referring Provider: Michael Palacio, [address] [place] [address], [address]. tel:[phone] [facility] [place]IA, [address] [place], [place], [id number], [phone] [facility] No Information 4201 6 David Sloan. [address], [place], [place], [id number], [place]. tel:[phone] Referring Provider: Michael Palacio, [address] [place] [address], [address]. tel:[phone] [facility] [place], [address] [place], [place], [id number], tel:[phone] [facility] [place]IA Blurry Vision (chief complaint) Combined forms of age-related cataract, bilateral Sep-3 0-201 6 David Sloan. [address], [place], [place], [id number], [place]. tel:[phone] Referring Provider: Michael Palacio, [address] [place] [address], [address]. tel:[phone] Family History Family Member Type Diagnosis Age [...] Fibromyalgia Payers Payer name Insurance type Covered green party ID Authoriza tion(s) [employer] Gold [employer] [id number] [facility] [id number] Social History Type Description Quantity Date Captured [...] patient states she has been seen by [facility] earlier this year and told them about the floaters the told her she needed to see her eye doctor here and then was given a run around between the PCP and her person at [facility]. Patient states that she has had the [...] at this time. Note to [facility]K from [facility], on CVF OS pt stated that I [...]
--- OUTSIDE RECORDS SUMMARY | 2024-09-17 15:30 | XMS_ITS | Encounter Summary ---
Author Organization [facility] [place] [address] Care Team Providers Care Reed Polisher Name Role Phone Elly Ling APRN Primary Care Provider [phone] Encounter Details Date Type Department Care Team [...] on filedocumented in this encounter Care Teams Reed Polisher Relationship Specialty Start Date End Date [place] [address] PCP - General Family Medicine 10/19/22 documented as of this encounter
--- OUTSIDE RECORDS SUMMARY | 2024-09-17 15:30 | XMS_ITS | Encounter Summary ---
Author Organization [facility] [place] [address] Care Team Providers Care Automobile Locator Name Role Phone Elly Ling ELKIN Primary Care Provider [phone] Reason for Referral * Psychiatric (Routine) - Closed Specialty Diagnoses / Procedures Referred By Joao t Referred To Contact Psychiatry Diagnoses Other amnesia Gifty Lamas MD [facility] [address] [place] [address] Barney Mg, PhD [facility] [place] [address] Referral ID Status Reason Start Date Expiration Date V isits Requested Visits Authorized [id number] Closed Consult, Test & Treat PCP Updated and/or Approved 11/28/2022 11/28/2023 6 6 Encounter Details Date Type Department Care Team (Late st Contact Info) Description 11/28/2022 Transcribe Orders eDH Incoming Referrals [phone] Gifty Lamas MD [facility] [address] [place], [place] [id number] Other amnesia Social History Tobacco Use Types [...] amnesia documented in this encounter Care Teams Automobile Locator Relationship Specialty Start Date End Date Elly Ling, SCOOP MACHINE OPERATOR [address] [place] [address] PCP - General Family Medicine 10/19/22 documented as of this encounter
--- OUTSIDE RECORDS SUMMARY | 2024-09-17 15:30 | XMS_ITS | Encounter Summary ---
Author Organization [facility] Address [facility] [place] [address] Care Team Providers Care [employer] Registrar Name Role Phone Elly Ling ELKIN Primary Care Provider [phone] Reason for Visit * Consultation (Routine) - Closed Specialty Diagnoses / Procedures Referred By Joao proctor Referred To Contact Neurology Diagnoses Encephalopathy, unspecified Unspecified nystagmus Ataxia, unspecified Other amnesia Gifty Lamas MD [facility] [address] [place] [id number] Sanju Martinez MD [facility] [place] [address] Referral ID Status Reason Start Date Expiration Date V isits Requested Visits Authorized [id number] Closed Second Opinion 10/05/2022 10/05/2023 1 1 Encounter Details Date Type Department Care Team (Late st Contact Info) Description 01/04/2023 1:00 PM EST [place] [address] Sanju Martinez MD [facility] [place] [address] Ataxia; Encephalopathy; Anxiety; Asthma, unspecified asthma severity, [...] problem. Sanju Martinez MD Professor of neurology, [employer] at [facility] Department of Neurology, [address] [address], [place] [address], [facility] Pager: [phone], #[phone] Email: [email or web address] documented in this encounter Progress Notes * [...] twice. Around 2015 the patient moved to [place] with her boyfriend. Then she became progressively unwell with confusion and bad balance. Reasons for this are unclear. About 3 years ago she returned to [place] and her son and daughter noted poor memory and lethargy. She was hospitalized at [facility] for afew days with no specific diagnosis being established. She returned to [place] and again became ill and bedridden. Her daughter who was at that time in [place] arranged for her to be hospitalized, and she then went to rehabilitation. She subsequently went with her daughter to [place]. She was hospitalized again in [facility]. She then moved to assisted living in [place], and in 2021 was moved back by her family to live with [facility]. On review of hospital records it is unclear what was really wrong with her. At one point there was concern for sepsis. From a neurological standpoint she was noted to have confusion, imbalance, and nystagmus that was worse when looking to the right. MRI scan of the brain from the hospitalization [facility] is noteworthy by report for cerebellar [...] drugs in the past Subsequently here in [place], her son describes improvement in her memory balance and coordination.However she is still not mentally at baseline, nor is she mentally normal (see exam below). She hadfollow-up MRI scan of the brain with contrast in [place] which shows, to my review, no abnormal [...] 110, factor V Leiden negative, prothrombin gene 51757R negative, PTT 32. Protein S 118,?? b.?? [...] is now living with her sister in [facility]. Her son lives in [place] and keeps an eye on her also. He is an [employer] unified communications engineer. Her daughter is in [place] Review of systems: 1. Eating: Normal 2. [...] needed. ??? fluticasone propionate (Flonase) 50 mcg/actuation [place], Suspension 1 spray by Nasal route Daily. [...] with a torsional component. Probably cerebellar, however Manjit-Hallpike testing positive with the right ear closer [...] scans: MRI scans: Reviewed MRI scan from [place] which shows calcifications bilaterally of the dentate [...] is clearly improved since she returned to [place]. 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 She will [...] day Sanju Martinez [place] [address] Pager: [phone], #[phone] Email: [email or web address] CC: ELKIN Albert MD documented in this [...] PM EST Ataxia HC DNA AB DS (TABLE MOUNTAIN) Routine 01/04/2023 3:42 PM EST Ataxia HC [...] Rodney Culver MD ? 03/14/2023 ??3:45 PM [facility] Department of Neurology Outpatient Ambulatory EEG Report [...] of the brain from the hospitalization in [place] is noteworthy by report for cerebellar edema of unclear etiology. ??She had a lumbar puncture but those results are not available. ??No malignancy has been found, although she did have endometrial cancer some years ago. Pt reports that OSH found neurological evidence of prior strokes. MEDICATIONS: PRIOR EEG(s): METHODS: A 21 channel digitized electroencephalogram was performed in the [facility]. The 10/20 international system of electrode placement was used and bipolar electrode montages were recorded. ??In addition to EEG the patient was monitored for EKG. Video was recorded during the session. MACHINE PAN GREASER'S REPORT: Performed by: TIMOTHY Bello/ Lizzy Stokes Sleep was not attained. Photic stimulation was performed. Hyperventilation was not performed. Effort was not adequate. Movement and other artifact was not significant. Comments: Obtained history from son, who has current (DPOA ?) of his mother while working through her medical issues. Resides with him in [place]. Complained of R sided neck pain while [...] MD Sanju Martinez MD NEUROLOGY ORDERABLES * [facility] (01/04/2023 3:42 PM EST) [facility] ?Result ? Flag ??Unit ?RefValue [...] its performance characteristics ?determined by [facility] in a manner consistent with CLIA ?requirements. This test has not been cleared or approved by ?the U.S. Food and Drug Administration. ??Amphiphysin Ab, S ? Negative ? Negative ? --ADDITIONAL INFORMATION-------- ?This test was developed and its performance characteristics ?determined by [facility] in a manner consistent with CLIA ?requirements. This test has not been cleared or approved by ?the U.S. Food and Drug Administration. ??AGNA-1, S ? Negative ? Negative ? --ADDITIONAL INFORMATION-------- ?This test was developed and its performance characteristics ?determined by [facility] in a manner consistent with CLIA ?requirements. This test has not been cleared or approved by ?the U.S. Food and Drug Administration. ??TALHA-1, S ? Negative ? Negative ? --ADDITIONAL INFORMATION-------- ?This test was developed and its performance characteristics ?determined by [facility] in a manner consistent with CLIA ?requirements. This test has not been cleared or approved by ?the U.S. Food and Drug Administration. ??TALHA-2, S ? Negative ? Negative ? --ADDITIONAL INFORMATION-------- ?This test was developed and its performance characteristics ?determined by [facility] in a manner consistent with CLIA ?requirements. This test has not been cleared or approved by ?the U.S. Food and Drug Administration. ??TALHA-3, S ? Negative ? Negative ? --ADDITIONAL INFORMATION-------- ?This test was developed and its performance characteristics ?determined by [facility] in a manner consistent with CLIA ?requirements. This test has not been cleared or approved by ?the U.S. Food and Drug Administration. ??CASPR2-IgG CBA, S ? Negative ? Negative ? --ADDITIONAL INFORMATION-------- ?This test was developed and its performance characteristics ?determined by [facility] in a manner consistent with CLIA ?requirements. This test has not been cleared or approved by ?the U.S. Food and Drug Administration. ??CRMP-5-IgG, S ? Negative ? Negative ? --ADDITIONAL INFORMATION-------- ?This test was developed and its performance characteristics ?determined by [facility] in a manner consistent with CLIA ?requirements. This test has not been cleared or approved by ?the U.S. Food and Drug Administration. ??DPPX Ab IFA, S ?Negative ? Negative ? --ADDITIONAL INFORMATION-------- ?This test was developed and its performance characteristics ?determined by [facility] in a manner consistent with CLIA ?requirements. This test has not been cleared or approved by ?the U.S. Food and Drug Administration. ??BIJAN-B-R Ab CBA, S ?Negative ? Negative ? --ADDITIONAL INFORMATION-------- ?This test was developed and its performance characteristics ?determined by [facility] in a manner consistent with CLIA ?requirements. This test has not been cleared or approved by ?the U.S. Food and Drug Administration. ??GAD65 Ab Assay, S ? 0.01 ? nmol/L ??<= 0.02 ? --ADDITIONAL INFORMATION-------- ?This test was developed and its performance characteristics ?determined by [facility] in a manner consistent with CLIA ?requirements. This test has not been cleared or approved by ?the U.S. Food and Drug Administration. ??GFAP IFA, S ? Negative ? Negative ? --ADDITIONAL INFORMATION-------- ?This test was developed and its performance characteristics ?determined by [facility] in a manner consistent with CLIA ?requirements. This test has not been cleared or approved by ?the U.S. Food and Drug Administration. ??IgLON5 IFA, S ? Negative ? Negative ? --ADDITIONAL INFORMATION-------- ?This test was developed and its performance characteristics ?determined by [facility] in a manner consistent with CLIA ?requirements. This test has not been cleared or approved by ?the U.S. Food and Drug Administration. ??LGI1-IgG CBA, S ? Negative ? Negative ? --ADDITIONAL INFORMATION-------- ?This test was developed and its performance characteristics ?determined by [facility] in a manner consistent with CLIA ?requirements. This test has not been cleared or approved by ?the U.S. Food and Drug Administration. ??mGluR1 Ab IFA, S ?Negative ? Negative ? --ADDITIONAL INFORMATION-------- ?This test was developed and its performance characteristics ?determined by [facility] in a manner consistent with CLIA ?requirements. This test has not been cleared or approved by ?the U.S. Food and Drug Administration. ??Neurochondrin IFA, S ?Negative ? Negative ? --ADDITIONAL INFORMATION-------- ?This test was developed and its performance characteristics ?determined by [facility] in a manner consistent with CLIA ?requirements. This test has not been cleared or approved by ?the U.S. Food and Drug Administration. ??NIF IFA, S ?Negative ? Negative ? --ADDITIONAL INFORMATION-------- ?This test was developed and its performance characteristics ?determined by [facility] in a manner consistent with CLIA ?requirements. This test has not been cleared or approved by ?the U.S. Food and Drug Administration. ??NMDA-R Ab CBA, S ?Negative ? Negative ? --ADDITIONAL INFORMATION-------- ?This test was developed and its performance characteristics ?determined by [facility] in a manner consistent with CLIA ?requirements. This test has not been cleared or approved by ?the U.S. Food and Drug Administration. ??SAND MIXER OPERATOR-1, S ?Negative ? Negative ? --ADDITIONAL INFORMATION-------- ?This test was developed and its performance characteristics ?determined by [facility] in a manner consistent with CLIA ?requirements. This test has not been cleared or approved by ?the U.S. Food and Drug Administration. ??SAND MIXER OPERATOR-2, S ?Negative ? Negative ? --ADDITIONAL INFORMATION-------- ?This test was developed and its performance characteristics ?determined by [facility] in a manner consistent with CLIA ?requirements. This test has not been cleared or approved by ?the U.S. Food and Drug Administration. ??SAND MIXER OPERATOR-Tr, S ? Negative ? Negative ? --ADDITIONAL INFORMATION-------- ?This test was developed and its performance characteristics ?determined by [facility] in a manner consistent with CLIA ?requirements. This test has not been cleared or approved by ?the U.S. Food and Drug Administration. ??Septin-7 IFA, S ? Negative ? Negative ? --ADDITIONAL INFORMATION-------- ?This test was developed and its performance characteristics ?determined by [facility] in a manner consistent with CLIA ?requirements. This test has not been cleared or approved by ?the U.S. Food and Drug Administration. ?Test Performed by: ?[facility] ?[address] [place] [address] ?Hand Lacer: Hermann Parrish M.D. Ph.D.; CLIA# [id number] [facility] Blood Venous Draw / Unknown 01/04/2023 3:42 PM EST 01/09/2023 10:39 AM EDT Narrative Resulting Agency Comment Spec In Lab Sanju Martinez MD LAB SEND OUT ORDERAB LES [facility] [place] [address] * Differential, Automated (01/04/2023 3:42 PM EST) Neutrophil % 47.4 % [facility] Neutrophil Absolute 3.42 1.70 - 6.10 x10(3)/[facility] Lymph % 39.2 % [facility] Lymphocytes Abs 2.8 0.9 - 3.2 x10(3)/[facility] Monocyte % 10.0 % [facility] Monocyte Abs 0.7 0.3 - 0.9 x10(3)/[facility] Eos % 2.6 % [facility] Eosinophils Abs 0.2 0.0 - 0.4 x10(3)/[facility] Basophil % 0.7 % [facility] Baso Absolute 0.0 0.0 - 0.1 x10(3)/[facility] Immature Gran % 0.10 % [facility] Comment: Immature granulocytes(IG's)percentage and absolute count will include metamyelocytes, myelocytes, and promyelocytes. Blood smears from CBCs yielding IG's will be scanned manually for concordance. If this scan disagrees with the automated IG or if promyelocytes are noted, a manual differential will be performed. Immature Gran Absolute 0.01 0.00 - 0.04 x10(3)/[facility] Blood 01/04/2023 3:42 PM EST 01/04/2023 3:47 PM EST Narrative Resulting Agency Comment Spec In Lab Sanju Martinez MD HEMATOLOGY ORDERABLE S Performing Organization Address City/State/[facility] Co de Phone Number [facility] [place] [address] * (ABNORMAL) Hemogram (01/04/2023 3:42 PM EST) White Blood Cell 7.2 4.0 - 9.5 x10(3)/mc L [facility] Red Blood Cell 3.90(L) 4.00 - 5.21 x10(6)/mc L [facility] Hemoglobin 11.6(L) 11.7 - 15.5 g/dL [facility] Hematocrit 36.3 35.7 - 45.8 % [facility] Mean Cell Volume 93.1 82.6 - 94.4 fL [facility] Mean Cell Hemoglobin 29.7 27.1 - 32.0 pg [facility] Mean Cell Hemoglobin Concentration 32.0 31.7 - 35.0 g/dL [facility] Platelet 306 145 - 357 x10(3)/mc L [facility] RDW Standard Deviation 41.8 37.0 - 46.0 fL [facility] RDW coefficient of variation 12.3 11.5 - 14.1 % [facility] Mean Platelet Volume 9.1 7.6 - 12.9 fL [facility] NRBC% auto 0.0 % [facility] NRBC Absolute 0.000 0.000 - 0.000 x10(3)/mc L [facility] Blood 01/04/2023 3:42 PM EST 01/04/2023 3:47 PM EST Narrative Resulting Agency Comment Spec In Lab Sanju Martinez MD HEMATOLOGY ORDERABLE S Performing Organization Address [facility] de Phone Number [facility] [place] [address] * (ABNORMAL) Vitamin B1, whole blood (01/04/2023 3:42 PM EST) Vit B1 Lvl Wb (FEBRUARY) 233(H) 70 - 180 nmol/L [facility] Comment: ADDITIONAL INFORMATION This test was developed and its performance characteristics determined by [facility] in a manner consistent with CLIA requirements. This test has not been cleared or approved by the U.S. Food and Drug Administration. Test Performed by: [facility] - [address] [address] Hand Lacer: Hermann Parrish M.D. Ph.D.; CLIA# [id number] Blood 01/04/2023 3:42 PM EST 01/05/2023 8:47 AM EST Narrative Resulting Agency Comment Spec In Lab Sanju Martinez MD LAB SEND OUT ORDERAB LES Performing Organization Address [facility] Co de Phone Number [facility] [place] [address] * Pyruvic acid (01/04/2023 3:42 PM EST) Pyruvic Acid (mg/dL) (FEBRUARY) 0.11 0.08 - 0.16 mmol/L [facility] Comment: Test Performed by: [facility] - [address] [address] Hand Lacer: Hermann Parrish M.D. Ph.D.; CLIA# [id number] Blood 01/04/2023 3:42 PM EST 01/04/2023 4:22 PM EST Narrative Resulting Agency Comment Spec In Lab Authorizing Provider Result Jaqueline Martinez MD LAB SEND OUT ORDERAB LES [facility] [place] [address] * Lactate, plasma (01/04/2023 3:42 PM EST) [facility] Lactic Acid 1.2 0.5 - 2.2 mmol/L [facility] Blood 01/04/2023 3:42 PM EST 01/04/2023 3:46 PM EST Narrative Resulting Agency Comment Spec In Lab Sanju Martinez MD CHEMISTRY ORDERABLES Performing Organization Address City/[facility]/ZIP Co de Phone Number [facility] [place] [address] * Vitamin D, 25-Hydroxy (01/04/2023 3:42 PM EST) Vitamin D Total 25 OH 37 21 - 100 ng/mL [facility] Vit D Interp Sufficient [facility] Blood 01/04/2023 3:42 PM EST 01/04/2023 3:47 PM EST Narrative Resulting Agency Comment Spec In Lab Sanju Martinez MD CHEMISTRY ORDERABLES Performing Organization Address City/[facility]/ZIP Co de Phone Number [facility] [place] [address] * Folate, serum (01/04/2023 3:42 PM EST) Folate >20.0 4.8 - 24.2 ng/mL [facility] Blood 01/04/2023 3:42 PM EST 01/04/2023 3:47 PM EST Narrative Resulting Agency Comment Spec In Lab Sanju Martinez MD CHEMISTRY ORDERABLES Performing Organization Address [facility] Co de Phone Number [facility] [place] [address] * Rheumatoid factor, quant (01/04/2023 3:42 PM EST) Pathologist [facility] Rheumatoid Factor <10 <=14 IU/mL [facility] Blood 01/04/2023 3:42 PM EST 01/04/2023 3:47 PM EST Narrative Resulting Agency Comment Spec In Lab Sanju Martinez MD CHEMISTRY ORDERABLES Performing Organization Address [facility] Co de Phone Number [facility] [place] [address] * Cardiolipin Antibody Screen (01/04/2023 3:42 PM EST) Pathologist [facility] Cardiolipin Antibody IgG 1.2 <=9.9 GPL-U/mL [facility] Cardiolipin Antibody IgM 2.1 <=9.9 MPL-U/mL [facility] Blood 01/04/2023 3:42 PM EST 01/05/2023 7:22 AM EST Narrative Resulting Agency Comment Spec In Lab Sanju Martinez MD IMMUNOLOGY ORDERABLE S Performing Organization Address [facility] Co de Phone Number [facility] [place] [address] * T4 Total (01/04/2023 3:42 PM EST) Pathologist [facility] T4 Total 5.6 5.3 - 11.6 mcg/dL [facility] Comment: Reference Interval (mcg/dL): Females: ??First Trimester: 6.3-13.5 ??Second Trimester: 7.1-14.3 ??Third Trimester: 6.9-14.1 Blood 01/04/2023 3:42 PM EST 01/04/2023 3:47 PM EST Narrative Resulting Agency Comment Spec In Lab Sanju Martinez MD CHEMISTRY ORDERABLES Performing Organization Address [facility]/ZIP Co de Phone Number [facility] [place] [address] * Cortisol (01/04/2023 3:42 PM EST) Cortisol 7.2 mcg/dL [facility] Comment: Reference ranges: ??AM (6-10am): ??4.8-19.5 mcg/dL ??PM (4-8pm) : ??2.5-11.9 mcg/dL Blood 01/04/2023 3:42 PM EST 01/04/2023 3:47 PM EST Narrative Resulting Agency Comment Spec In Lab Sanju Martinez MD CHEMISTRY ORDERABLES Performing Organization Address City/[facility] Co de Phone Number [facility] [place] [address] * Protein Electrophoresis, serum (01/04/2023 3:42 PM EST) Total Prot Electrophoresis 6.4 6.1 - 8.0 g/dL [facility] Albumin Electrophoresis 4.22 3.20 - 5.20 g/dL [facility] Alpha 1 Globulin 0.10 0.10 - 0.30 g/dL [facility] Alpha 2 Globulin 0.61 0.40 - 0.90 g/dL [facility] Beta Globulin 0.73 0.50 - 1.00 g/dL [facility] Gamma Globulin 0.74 0.50 - 1.30 g/dL [facility] M1 Band None Detected None Detected [facility] Blood 01/04/2023 3:42 PM EST 01/04/2023 3:47 PM EST Narrative Resulting Agency Comment Spec In Lab Sanju Martinez MD CHEMISTRY ORDERABLES Performing Organization Address [facility]/ZIP Co de Phone Number [facility] [place] [address] * GAYLE Antibody Screen (01/04/2023 3:42 PM EST) GAYLE Ab Screen Negative Negative [facility] Comment: This antinuclear antibody [...] performed by the Special Chemistry Laboratory at [facility]. This change in testing location is associated with a change is testing method and reference intervals. Please review the results of this test in association with the posted reference intervals. dsDNA Ab <0.6 <=15.0 IU/mL [facility] Comment: <10 negative 10-15 [...] performed by the Special Chemistry Laboratory at [facility]. This change in testing location is associated with a change is testing method and reference intervals. Please review the results of this test in association with the posted reference intervals. Blood 01/04/2023 3:42 PM EST 01/05/2023 7:22 AM EST Narrative Resulting Agency Comment Spec In Lab Sanju Martinez MD LAB SEND OUT ORDERAB LES Performing Organization Address City/[facility]/ZIP Co de Phone Number [facility] [place] [address] * Tissue transglutaminase, IgA (01/04/2023 3:42 PM EST) TTG IgA Ab 0.4 <=10.0 u/ml [facility] Comment: Negative: ??<7 units/mL Indeterminate: 7-10 units/mL Positive: ??>10 units/mL Blood 01/04/2023 3:42 PM EST 01/05/2023 7:22 AM EST Narrative Resulting Agency Comment Spec In Lab Sanju Martinez MD IMMUNOLOGY ORDERABLE S Performing Organization Address [facility] Co de Phone Number [facility] [place] [address] * Lyme IgG & IgM Antibody (01/04/2023 3:42 PM EST) Pathologist [facility] Lyme Antibody Neg Neg [facility] Blood 01/04/2023 3:42 PM EST 01/05/2023 12:48 AM EST Narrative Resulting Agency Comment Spec In Lab Sanju Martinez MD IMMUNOLOGY ORDERABLE S Performing Organization Address [facility] de Phone Number [facility] [place] [address] * Sedimentation rate (01/04/2023 3:42 PM EST) [facility] Sedimentation Rate Automated 8 2 - 39 mm/hr [facility] Comment: Effective October 09, 2019 new capillary photometric technology has resulted in a change in reference ranges. It is recommended that each ESR result be reviewed with its own age appropriate reference range. Blood 01/04/2023 3:42 PM EST 01/04/2023 3:47 PM EST Narrative Resulting Agency Comment Spec In Lab Sanju Martinez MD HEMATOLOGY ORDERABLE S Performing Organization Address [facility] de Phone Number [facility] [place] [place] [address] * Magnesium (01/04/2023 3:42 PM EST) [facility] Magnesium 0.91 0.69 - 1.07 mmol/L [facility] Blood 01/04/2023 3:42 PM EST 01/04/2023 3:47 PM EST Narrative Resulting Agency Comment Spec In Lab Sanju Martinez MD CHEMISTRY ORDERABLES Performing Organization Address [facility] Co de Phone Number [facility] [place] [address] * Vitamin B12 (01/04/2023 3:42 PM EST) Vitamin B12 410 232 - 1,245 pg/mL [facility] Blood 01/04/2023 3:42 PM EST 01/04/2023 3:47 PM EST Narrative Resulting Agency Comment Spec In Lab Sanju Martinez MD CHEMISTRY ORDERABLES Performing Organization Address [facility] de Phone Number [facility] [place] [address] * TSH (01/04/2023 3:42 PM EST) Pathologist [facility] Thyroid Stimulating Hormone 1.41 0.27 - 4.20 mcIU/mL [facility] Comment: Reference Interval (mcIU/mL): Females: ??First Trimester: 0.23-3.88 ??Second Trimester: 0.22-3.90 ??Third Trimester: 0.44-4.66 Blood 01/04/2023 3:42 PM EST 01/04/2023 3:47 PM EST Narrative Resulting Agency Comment Spec In Lab Sanju Martinez MD CHEMISTRY ORDERABLES Performing Organization Address [facility] Co de Phone Number [facility] [place] [address] * (ABNORMAL) Hepatic Function Panel (01/04/2023 3:42 PM EST) Protein, Total 7.0 6.1 - 8.0 g/dL [facility] Albumin 4.4 3.2 - 5.2 g/dL [facility] Aspartate Aminotransferase 14 0 - 30 unit/L [facility] Alanine Aminotransferase 22 0 - 30 unit/L [facility] Alkaline Phosphatase 100 35 - 105 unit/L [facility] Bilirubin, Total 1.8(H) 0.2 - 1.3 mg/dL [facility] Bilirubin, Direct 0.3 0.0 - 0.3 mg/dL [facility] Blood 01/04/2023 3:42 PM EST 01/04/2023 3:47 PM EST Narrative Resulting Agency Comment Spec In Lab Sanju Martinez MD CHEMISTRY ORDERABLES [facility] [place] [address] * (ABNORMAL) Basic Metabolic Panel (non-fasting) (01/04/2023 3:42 PM EST) Glucose 74 65 - 199 mg/dL [facility] Comment:Diabetes: >=200 mg/d L plus symptoms Blood Urea Nitrogen 20(H) 8 - 18 mg/dL [facility] Creatinine 0.98 0.70 - 1.20 mg/dL [facility] Sodium 144 135 - 145 mmol/L [facility] Potassium 4.1 3.5 - 5.0 mmol/L [facility] Comment: Please note: ??Patients with WBC >100,000 may have falsely elevated Potassium levels. ??For accurate Potassium quantification in these patients send serum separator tube (gold top) for subsequent determinations. ??Contact the Clinical Chemistry Laboratory if there are any questions. Chloride 106 98 - 107 mmol/L [facility] Carbon Dioxide 28 22 - 31 mmol/L [facility] Anion Gap 10 5 - 15 mmol/L [facility] Calcium 9.0 8.5 - 10.5 mg/dL [facility] Est Glomerular Filtration Rate 66 >=60 mL/min/1. 73 m?? [facility] Comment: This patient's estimated GFR was [...] Martinez MD CHEMISTRY ORDERABLES Performing Organization Address City/State/[facility] Co de Phone Number [facility] [place] [address] documented in this encounter Visit Diagnoses Diagnosis [...] unspecified documented in this encounter Care Teams College Or University Registrar Relationship Specialty Start Date End Date Elly Ling, CORRUGATOR [place]ATOR [place] [address] PCP - General Family Medicine 10/19/22 documented as of this encounter
--- OUTSIDE RECORDS SUMMARY | 2024-09-17 15:30 | XMS_ITS | Encounter Summary ---
[place] [address] Care Team Providers Care Cat Dog Or Other Pet Groomer Name Role Phone Elly Ling Evie GRANGER Primary Care Provider [phone] Encounter Details Date Type Department Care Team (Latest Contact Info) Description 01/04/2023 1:27 PM EST - 01/04/2023 11:59 PM EST [place] [address] Discharge Disposition: Home Social History Tobacco Use [...] daily. 11/03/2022 fluticasone propionate (Flonase) 50 mcg/actuation [place], Suspension 1 spray by Nasal route Daily. [...] on filedocumented in this encounter Care Teams Cat Dog Or Other Pet Groomer Relationship Specialty Start Date End Date [place] [address] PCP - General Family Medicine 10/19/22 documented as of this encounter
--- OUTSIDE RECORDS SUMMARY | 2024-09-17 15:30 | XMS_ITS | Encounter Summary ---
Author Organization [facility] [address] Care Team Providers Care Sales Communications Manager Name Role Phone Elly Ling APRN Primary Care Provider [phone] Encounter Details Date Type Department Care Team [...] filedocumented in this encounter Care Teams Sales Communications Manager Relationship Specialty Start Date End Date [place] [address] PCP - General Family Medicine 10/19/22 documented as of this encounter
--- OUTSIDE RECORDS SUMMARY | 2024-09-17 15:30 | XMS_ITS | Encounter Summary ---
Author Organization [facility] Address [facility] [place] [address] Care Team Providers Care Manufacturing Engineering Technologist Name Role Phone Elly Ling ELKIN Primary Care Provider [phone] Encounter Details Date Type Department Care Team (Late st Contact Info) Description 03/13/2023 3:00 PM EDT [place] [address] Sanju Martinez MD [facility] [place] [address] Encephalopathy; Ataxia Social History Tobacco Use Types [...] support. Sanju Martinez MD Professor of neurology, [employer] at [facility] Department of Neurology, [address] Pager: [phone], #[phone] Email: [email or web address] documented in this encounter Progress Notes [...] twice. Around 2015 the patient moved to [place] with her boyfriend. Then she became progressively unwell with confusion and bad balance. Reasons for this are unclear. About 3 years ago she returned to [place] and her son and daughter noted poor memory and lethargy. She was hospitalized at [facility] for afew days with no specific diagnosis being established. She returned to [place] and again became ill and bedridden. Her daughter who was at that time in [place] arranged for her to be hospitalized, and she then went to rehabilitation. She subsequently went with her daughter to [place]. She was hospitalized again in [facility]. She then moved to assisted living in [place], and in 2021 was moved back by her family to live with themin [place]. On review of hospital records it is unclear what was really wrong with her. At one point there was concern for sepsis. From a neurological standpoint she was noted to have confusion, imbalance, and nystagmus that was worse when looking to the right. MRI scan of the brain from the hospitalization [facility] is noteworthy by report for cerebellar [...] drugs in the past Subsequently here in [place], her son describes improvement in her memory balance and coordination.However she is still not mentally at baseline, nor is she mentally normal (see exam below). She hadfollow-up MRI scan of the brain with contrast in [place] which shows, to my review, no abnormal [...] 110, factor V Leiden negative, prothrombin gene 95103A negative, PTT 32. Protein S 118,?? b.?? [...] is now living with her sister in [facility]. Her son lives in [place] and keeps an eye on her also. He is an machinery engineer. Her daughter is in [place] Review of systems: 1. Eating: Normal 2. [...] daily. ??? fluticasone propionate (Flonase) 50 mcg/actuation [place], Suspension 1 spray by Nasal route Daily. [...] with a torsional component. Probably cerebellar, however Welton-Hallpike testing positive with the right ear closer [...] scans: MRI scans: Reviewed MRI scan from [place] which shows calcifications bilaterally of the dentate [...] cerebellar involvement. However, the positive findings on Welton-Hallpike testing with the right earcloser to the ground suggest that there is vestibular involvement as well. In short, this is a multisystem RETAIL GROCER process that seems to be getting better. Her EEG looks remarkably normal. 2. With regard to the question of underlying etiology, I am doubtful that we are dealing with a progressive degenerative disorder. According to the patient's son she is clearly improved since she returned to [place]. Improvement is not a clinical characteristic of [...] necessary Sanju Martinez MD [place] [address] Pager: [phone], #[phone] Email: [email or web address] CC: ELKIN Albert MD documented in this encounter Plan of Treatment Not on file documented as of this encounter Visit Diagnoses Diagnosis Encephalopathy Encephalopathy, unspecified Ataxia Lack of coordination documented in this encounter Care Teams Manufacturing Engineering Technologist Relationship Specialty Start Date End Date [place] [address] PCP - General Family Medicine 10/19/22 documented as of this encounter
--- OUTSIDE RECORDS SUMMARY | 2024-09-17 15:30 | XMS_ITS | Encounter Summary ---
Author Organization [facility] Address [facility] Marcia johnson [place] [id number] Care Team Providers Care Clearing Hand Name Role Phone Unknown Primary Care Provider Unavailabl e Reason for Referral * Consultation (Routine) - Closed Specialty Diagnoses / Procedures Referred By Contac t Referred To Contact Neurology Diagnoses Encephalopathy, unspecified Unspecified nystagmus Ataxia, unspecified Other amnesia Gifty Lamas MD [facility] [address] [place] [address] Sanju Martinez MD [facility] [place] [address] Referral ID Status Reason Start Date Expiration Date V isits Requested Visits Authorized [id number] Closed Second Opinion 10/05/2022 10/05/2023 1 1 Encounter Details Date Type Department Care Team (Late st Contact Info) Description 10/05/2022 Transcribe Orders eDH Incoming Referrals [phone] Gifty Lamas MD [facility] [address] [place], [place] [id number] Encephalopathy, unspecified; Unspecified nystagmus; Ataxia, unspecified; Other [...] amnesia documented in this encounter Care Teams Clearing Hand Relationship Specialty Start Date End Date Unknown None PCP - General 09/28/14 10/18/22 documented as of this encounter
--- OUTSIDE RECORDS SUMMARY | 2024-09-17 15:30 | XMS_ITS | Encounter Summary ---
Author Organization [facility] Address [address] [place] [address] Care Team Providers Care Optometrist/Practice Owner Name Role Phone Remedios Mehta MD Primary Care Provider [phone] Encounter Details Date Type Department Care Team (Late st Contact Info) Description 03/14/2000 Results Only [facility] [address] [place] [address] Unknown, Provider, Social History Tobacco Use Types [...] UA Neg NEG [facility] Specific [place], Urine 1.010 1.005 - 1.02 [facility] Blood, UA Neg NEG [facility] pH, UA 7.0 5.0 - 9.0 [facility] Protein, UA Neg NEG [facility] Urobilinogen, UA Norm NORM mg/dL [facility] Nitrite, UA Neg NEG [facility] Leuk Esterase Neg NEG [facility] 03/14/2000 19:5 9 EDT 03/14/2000 19:59 EDT us Provider Unknown MD URINALYSIS ORDERABLES Final Result [facility] [address] [place] [address] * CYTOPATHOLOGY (03/14/2000 0:00 EDT) Pathology Report: CYTOPATHOLOGY REPORT Reports generated via electronic interface contain original data; however they are lacking the format of the original report. Caution should be taken when reading/interpreti ng unformatted reports. Name: ? CHERELLE BETTENCOURT ? Accession #: ? [id number] : ? 1960 (Age: 39) ??F ?Collect Date: ? 03/14/2000 Location: ? [facility] ? Receive Date: ? 03/16/2000 Provider: [facility] Copy to: ? Specimen/Source: ?ThinPrep Pap Test, Cervix/Endocervix Last Menstrual Period: ? 02/29/00 Previous Gynecologic Pathology: ? Yes ? SPECIMEN ADEQUACY ? Satisfactory for evaluation. GENERAL CATEGORIZATION ? Within Normal Limits ? Document reviewed and electronically signed by: ? LALA Barrios(ASCP) ? Report Date: ??03/20/2000 11:15 End of Report [facility] 03/14/2000 03/16/2000 us Provider Unknown PATHOLOGY ORDERABLES Final R esult Performing Organization Address City/State/[facility] Co de Phone Number [facility] [address] [place] [address] documented in this encounter Visit Diagnoses Not on filedocumented in this encounter Care Teams Optometrist/Practice Owner Relationship Specialty Start Date End Date Remedios Mehta MD [address] [place] [address] PCP - General 02/19/09 01/04/15 documented as of this encounter
--- OUTSIDE RECORDS SUMMARY | 2024-09-17 15:30 | XMS_ITS | Encounter Summary ---
Author Organization [facility] Address [address] [place] [address] Care Team Providers Care Mortgage Consultant Name Role Phone Unavailable Primary Care Provider Unavailabl e Encounter Details Date Type Department Care Team (Late st Contact Info) Description 04/10/2000 13:50 EDT Hospital Encounter [address] [address] Christie Farrell MD [address] [facility], [facility] [address] [place] [id number] Discharge Disposition: Auto Discharge Social History Tobacco [...] OF IMPRESSION Heladio Dash MD IMG US ORDERABLES Fin al Result documented in this encounter Visit Diagnoses Not on filedocumented in this encounter
--- OUTSIDE RECORDS SUMMARY | 2024-09-17 15:30 | XMS_ITS | Encounter Summary ---
Author Organization [facility] Address [facility] [place] [address] Care Team Providers Care Histology Teacher Name Role Phone Elly Ling Evie GRANGER Primary Care Provider [phone] Encounter Details Date Type Department Care Team (Latest Contact Info) Description 03/13/2023 12:48 PM EDT - 03/13/2023 11:59 PM EDT Hospital [place] [address] Ataxia; Encephalopathy Discharge Disposition: Home Social History [...] daily. 11/03/2022 fluticasone propionate (Flonase) 50 mcg/actuation [place], Suspension 1 spray by Nasal route Daily. [...] Order(s): EEG ROUTINE Pre-Procedure Diagnose(s): Ataxia; Encephalopathy [facility] Department of Neurology Outpatient Ambulatory EEG [...] of the brain from the hospitalization in [place] is noteworthy by report for cerebellar edema ofunclear etiology. She had a lumbar puncture but those results are not available. No malignancy has been found, although she did have endometrial cancer some years ago. Pt reports that OSH found neurological evidence of prior strokes. MEDICATIONS: PRIOR EEG(s): METHODS: A 21 channel digitized electroencephalogram was performed in the [facility] Clinical Neurophysiology Laboratory. The 10/20 international system of electrode placement was used and bipolar electrode montages were recorded. In addition to EEG the patient was monitored for EKG. Video was recorded during the session. DIRECTOR OF OCCUPATIONAL THERAPY'S REPORT: Performed by: TIMOTHY Bello/ Lizzy Stokes Sleep was not attained. Photic stimulation was performed. Hyperventilation was not performed. Effort was not adequate. Movement and other artifact was not significant. Comments: Obtained history from son, who has current (DPOA ?) of his mother while working through her medical issues. Resides with him in [place]. Complained of R sided neck pain while [...] Rodney Culver MD ? 03/14/2023 ??3:45 PM [facility] Department of Neurology Outpatient Ambulatory EEG [...] of the brain from the hospitalization in [place] is noteworthy by report for cerebellar edema of unclear etiology. ??She had a lumbar puncture but those results are not available. ??No malignancy has been found, although she did have endometrial cancer some years ago. Pt reports that OSH found neurological evidence of prior strokes. MEDICATIONS: PRIOR EEG(s): METHODS: A 21 channel digitized electroencephalogram was performed in the [facility] Clinical Neurophysiology Laboratory. The 10/20 international system of electrode placement was used and bipolar electrode montages were recorded. ??In addition to EEG the patient was monitored for EKG. Video was recorded during the session. DIRECTOR OF OCCUPATIONAL THERAPY'S REPORT: Performed by: TIMOTHY Bello/ Lizzy Stokes Sleep was not attained. Photic stimulation was performed. Hyperventilation was not performed. Effort was not adequate. Movement and other artifact was not significant. Comments: Obtained history from son, who has current (DPOA ?) of his mother while working through her medical issues. Resides with him in [place]. Complained of R sided neck pain while [...] unspecified documented in this encounter Care Teams Histology Teacher Relationship Specialty Start Date End Date Elly Ling, [place] [address] PCP - General Family Medicine 10/19/22 documented as of this encounter
[2024-09-17 20:08] LABS: Hemoglobin A1C 6.2 % (<5.7)
[2024-09-18 19:15] LABS: Hepatitis C Ab w Rflx HCV PCR Negative (Negative)
[2024-09-18 19:20] LABS: HIV-1/2 Ag & Ab Screen Negative (Negative)
== END 2024-09-17 15:14 | disposition home or self-care (01) ==
LOC: NCHCN 15:13
PROVIDERS: PCP Nurse Practitioner Family; Visit Provider Nurse Practitioner Family
DX: R73.03 Prediabetes (principal)
CPT/HCPCS: 86803; 87389; 83036

== ENCOUNTER 2024-10-02 01:16 | Outpatient (CLI) | payer MEDICARE, MEDICAID, SELFPAY ==
--- NOTE | 2024-10-02 | DI.MAMMO_ITS ---
Exam(s) MAMMO SCREENING EXAM: MAMMO SCREENING CLINICAL HISTORY: screening,z12.31 TECHNIQUE: Mammograms were interpreted according to the usual protocol including computer analysis w [place] CAD system, tomosynthesis and C-view imaging. COMPARISON: 2021 FINDINGS: The breasts are composed of mainly fatty density , Breast Density category A. No suspicious masses or suspicious microcalcifications are seen. No skin thickening or abnormal axillary lymph nodes are seen. There has been no significant change from prior exams. IMPRESSION: BI-RADS Category 1, Negative mammogram Yearly screening mammography is recommended. Breast Density - Category A, fatty density. A negative radiographic report should not delay biopsy if a dominant or clinically suspicious mass is present. Up to ten percent of cancers are not identified on mammography. A negative report may reinforce clinical impression. Adenosis and dense breasts may obscure an underlying neoplasm. False positive reports average 6 to 10%. Patient will receive a letter notifying them of these results.
== END 2024-10-02 01:36 ==
LOC: DI 01:16
PROVIDERS: PCP Nurse Practitioner Family; Visit Provider Nurse Practitioner Family
DX: Z12.31 Encounter for screening mammogram for malignant neoplasm of breast (principal); R92.313 Mammographic fatty tissue density, bilateral breasts
CPT/HCPCS: 77063; 77067

== ENCOUNTER → 2025-01-02 09:05 | Outpatient (BNVA) | payer MEDICARE, MEDICAID, SELFPAY | PROVIDERS: PCP Nurse Practitioner Family; Referring Provider Nurse Practitioner Family; Visit Provider Student in an Organized Health Care Education/Training Program | DX: K64.9 Unspecified hemorrhoids (principal) | CPT/HCPCS: 99214 ==

== ENCOUNTER → 2025-01-13 10:58 | Outpatient (BNVA) | payer MEDICARE, MEDICAID, SELFPAY | PROVIDERS: PCP Nurse Practitioner Family; Visit Provider Psychiatry & Neurology Neurology | DX: I10 Essential (primary) hypertension (principal); E78.5 Hyperlipidemia, unspecified; E11.9 Type 2 diabetes mellitus without complications; G93.40 Encephalopathy, unspecified; H55.00 Unspecified nystagmus; R27.0 Ataxia, unspecified; G89.29 Other chronic pain; D32.0 Benign neoplasm of cerebral meninges; G43.009 Migraine without aura, not intractable, without status migrainosus | CPT/HCPCS: 99214 ==

== ENCOUNTER 2025-01-29 00:52 | Outpatient (CLI) | payer MEDICARE, MEDICAID, SELFPAY ==
--- NOTE | 2025-01-29 14:19 | DI.RAD_ITS ---
Exam(s) XR FOOT RT COMPLETE EXAM: XR FOOT RT COMPLETE h CLINICAL HISTORY: Right foot pain,m79.671. TECHNIQUE: 2D digital imaging was performed. COMPARISON: No exams were available for comparison FINDINGS: 3 views No evidence of fracture or diastasis of the Lisfranc joint. Great toe metatarsophalangeal joint appe ars unremarkable. Bone density normal. No osseous lesions. No pes planus. There is a tiny entheso phyte on the posterior calcaneus Achilles insertion site. There is no inferior calcaneal spur. Midf oot articulations appear unremarkable. No vascular calcification. No radiopaque foreign bodies. IMPRESSION: No significant radiographic findings in the right foot. DATA REPOSITORY: RADIATION DOSE DELIVERED:
--- NOTE | 2025-01-29 14:19 | DI.RAD_ITS ---
Exam(s) XR FOOT LT COMPLETE EXAM: XR FOOT LT COMPLETE CLINICAL HISTORY: Left foot pain,m79.672. TECHNIQUE: 2D digital imaging was performed. COMPARISON: CR XR FOOT RT COMPLETE from 01/29/2025 FINDINGS: 3 views Is no evidence of fracture or diastasis of the Lisfranc joint. There are mild degenerative changes a t the great toe metatarsophalangeal joint. Other MTP joints appear unremarkable as do the tarsometat arsal joints. No pes planus. Bone density normal. No osseous lesions IMPRESSION: Mild degenerative changes at the great toe metatarsophalangeal joint. No other significant osseous f indings in the foot DATA REPOSITORY: RADIATION DOSE DELIVERED:
== END 2025-01-29 01:12 ==
LOC: DI 00:52
PROVIDERS: PCP Nurse Practitioner Family; Visit Provider Podiatrist
DX: M79.671 Pain in right foot (principal); M79.672 Pain in left foot; M72.2 Plantar fascial fibromatosis; M76.61 Achilles tendinitis, right leg; M76.62 Achilles tendinitis, left leg; M67.01 Short Achilles tendon (acquired), right ankle; M67.02 Short Achilles tendon (acquired), left ankle; L84 Corns and callosities; E11.40 Type 2 diabetes mellitus with diabetic neuropathy, unspecified
CPT/HCPCS: 20550; J0702; J1100; 73630

== ENCOUNTER → 2025-02-06 11:06 | Outpatient (BNVA) | payer MEDICARE, MEDICAID, SELFPAY | PROVIDERS: PCP Nurse Practitioner Family; Referring Provider Nurse Practitioner Family; Visit Provider Physical Therapy Assistant | DX: K64.8 Other hemorrhoids (principal); K64.1 Second degree hemorrhoids | CPT/HCPCS: 46600 ==

== ENCOUNTER 2025-02-12 10:13 | Outpatient (REF) | payer MEDICARE, MEDICAID, SELFPAY ==
[2025-02-12 16:21] LABS: COMMENT (LAB VIEW ONLY) 180.39 mg/dL; Microalb ug/mg Crea 7.4 ug/mg Cr
== END 2025-02-12 10:14 | disposition home or self-care (01) ==
LOC: NCHCN 10:13
PROVIDERS: PCP Nurse Practitioner Family; Visit Provider Nurse Practitioner Family
DX: R73.03 Prediabetes (principal)
CPT/HCPCS: 82043; 82570

== ENCOUNTER 2025-02-25 06:13 | Day surgery (SDC) | payer MEDICARE, MEDICAID, SELFPAY ==
--- NOTE | 2025-02-24 16:37 | PDOC.DSDIS_ITS ---
Date of service: 02/25/25 Discharge Plan Disposition Patient Disposition: Home Condition: Good Discharge Details Reason For Visit: Internal hemorrhoid banding Attending Provider: Dandy Wing Primary Care Provider: BHAVANI GUTIERREZ Home Meds and New Rx's Prescriptions: New tramadol 50 mg tablet 50 mg PO Q8H PRNQty: 9 0RF Rx Instructions: Take 1 tablet by mouth up to every 8 hours if needed for more severe pain. docusate sodium [Colace] 100 mg capsule 100 mg PO DAILY Qty: 10 0RF Rx Instructions: Take 1 tablet by mouth daily Continued One-A-Day Women's 50 Plus 400-20 mcg tablet 1 tab PO DAILY valproic acid 250 mg capsule 250 mg PO BID Qty: 180 3RF gabapentin 300 mg capsule 600 mg PO QHS Qty: 180 3RF ferrous gluconate 324 mg (37.5 mg iron) tablet 324 mg PO DAILY ropinirole 0.25 mg tablet 0.25 mg PO QHS Rx Instructions: administer 1-3 hours before bedtime acetaminophen [Tylenol] 325 mg capsule 325 mg PO ONCE PRN bupivacaine HCl 0.5 % (5 mg/mL) solution 0.5 ml intra-articular ONCE Qty: 0.5 0RF famotidine 20 mg tablet 20 mg PO DAILY buspirone 5 mg tablet 5 mg PO BID atorvastatin 20 mg tablet 20 mg PO DAILY clopidogrel 75 mg tablet 75 mg PO DAILY (DME) Accu-Chek Shannen Plus test strp Strip See Rx Instructions .Route Rx Instructions: As directed, Use 1 strip via meter 3 times a day. trazodone 50 mg tablet 50 mg PO QHS duloxetine [Cymbalta] 20 mg capsule,delayed release(DR/EC) 20 mg PO BID ketoconazole 2 % cream TOPICAL Held colestipol 1 gram tablet 1 g PO DAILY Hold Instructions: Resume on 03/04/25. No Action fluticasone propionate 50 mcg/actuation spray,suspension INTRANASAL Breo Ellipta 50-25 mcg/dose blister with device INHALATION Discharge Instructions Instructions: Hemorrhoid Banding Additional Instructions: Cherelle, it was nice meeting you today, and I hope that this provides some relief from the internal hemorrhoids. I used some long-acting local anesthetic around your anus to help with any discomfort after the procedure. Hopefully that will provide you some relief. As you know, you do have internal hemorrhoids. I placed bands on 2 of the 3 larger hemorrhoids today. I generally try not to band all 3 in a single setting as the complication rate from that seems to be a little bit higher. The remaining hemorrhoid is relatively small compared to the other 2. We would give this a week or 2 to see how things go, and I will plan to see you in the office after that to reassess. As we discussed beforehand, I placed a prescription for some pain medications for you to use over the next few days if you need it. I also recommend that you alternate [id number] Tylenol and ibuprofen every 6 hours for the first 2 days. I also put in a prescription for some stool softeners to help promote easy bowel movements. I recommend that you hold your colestipol for 1 week. Also, as we discussed beforehand, using sitz bath's once in the morning, once in the evening, and as needed throughout the course of the day for bowel movements and discomfort is a very useful strategy. I typically recommend that patients mix a few tablespoons of baking soda or Epsom salts into some warm water and use that to soak. If you have any questions at all, please do not hesitate to call at any time, otherwise we will see you in the office. Referrals: Dandy Wing MD [ [facility] STAFF PHYSICIAN] - (March 20 at 9:45 AM) Activity:: Activity as Tolerated Diet:: As Tolerated Discharge Orders Discharge Orders: Discharge Order (Routine); Ordered 02/24/25 Ordered By: Dandy Wing DS: Diagnosis Discharge Diagnosis (1) Internal hemorrhoids: Status: Acute Asessment and Plan: Status post internal hemorrhoid banding; outpatient office follow-up 2 to 3 weeks
--- NOTE | 2025-02-25 06:20 | ANES.PREOP_ITS ---
General Info Date of Service Date Performed: 02/25/25 Height: 5 ft Weight: 92.079 kg Body Mass Index (BMI): 39.6 Surgical Procedure: Operation Date: 02/25/25 07:40 Proposed Procedure Side Surgeon p Hemorrhoid Banding Dandy Wing MD Meds Allergies and Home Medications Allergies Allergy/AdvReac Type Severity Reaction Status Date / Time codeine Allergy Skin Rash Verified 02/25/25 06:38 Penicillins Allergy Skin Rash Verified 02/25/25 06:38 pollen extracts Allergy Other (See Verified 02/25/25 06:38 Comment) Sulfa (Sulfonamide Allergy Skin Rash Verified 02/25/25 06:38 Antibiotics) house dust AdvReac Unknown Other (See Verified 02/25/25 06:38 Comment) adhesive AdvReac Skin Rash Verified 02/25/25 06:38 aspirin AdvReac because Verified 02/25/25 06:38 of my asthma latex AdvReac rash Verified 02/25/25 06:38 Home Medication ?Medication ?Instructions ?Recorded atorvastatin 20 mg tablet 20 mg PO DAILY 04/07/22 blood sugar diagnostic (Accu-Chek 04/07/22 Shannen Plus test strips) buspirone 5 mg tablet 5 mg PO BID 04/07/22 clopidogrel 75 mg tablet 75 mg PO DAILY 04/07/22 famotidine 20 mg tablet 20 mg PO DAILY 04/07/22 duloxetine 20 mg capsule,delayed 20 mg PO BID 04/11/22 release (Cymbalta) efnmqlbzsdyo-afhqzktm-awuqyxo-folic 1 tab PO DAILY 08/16/22 acid 400 mcg-vit K1 20 mcg tablet (One-A-Day Women's 50 Plus) acetaminophen 325 mg capsule 325 mg PO ONCE PRN 05/03/23 (Tylenol) trazodone 50 mg tablet 50 mg PO QHS 03/18/24 ferrous gluconate 324 mg (37.5 mg 324 mg PO DAILY 12/06/24 iron) tablet ropinirole 0.25 mg tablet 0.25 mg PO QHS 12/06/24 gabapentin 300 mg capsule 600 mg (2 x 300 mg) PO QHS #180 01/13/25 caps valproic acid 250 mg capsule 250 mg PO BID #180 caps 01/13/25 colestipol 1 gram tablet 1 g PO ONCE 01/16/25 Current Visit Medications: Current Medications Generic Name Dose Route Start Last Admin Trade Name Freq PRN Reason Stop Dose Admin Ringer's Solution 1,000 mls @ 80 mls/hr 02/25/25 06:00 IV 02/25/25 23:59 INFUSION AIDA IV Miscellaneous Supplies 1 each 02/25/25 06:00 Iv Access IV 02/25/25 23:59 DIRECTED AIDA Ondansetron HCl 4 mg 02/24/25 16:40 Ondansetron 4 Mg/2 Ml Vial IVP 03/26/25 16:39 Q4H PRN PRN Nausea / Vomiting Sodium Chloride 0 ml 02/25/25 06:00 Normal Saline Flush 10 Ml Syr IV 02/25/25 23:59 PRN PRN Sodium Chloride 0 ml 02/25/25 06:00 Normal Saline 10 Ml Vial IJ 02/25/25 23:59 DIRECTED PRN Sterile Water 0 ml 02/25/25 06:00 Water,Injection,Sterile 10 Ml Vial IJ 02/25/25 23:59 DIRECTED PRN PFSH Active Problems Active Problems: Problem Status Onset Code Internal hemorrhoids Acute K64.8 Diabetic neuropathy Acute E11.40 Corns and callosities Acute L84 Achilles tendon contracture, bilateral Acute M67.01, M67.02 Achilles tendinitis of both lower extremities Acute M76.61, M76.62 Plantar fasciitis, bilateral Acute M72.2 Iron deficiency Acute E61.1 RLS (restless legs syndrome) Acute G25.81 Vertigo Acute R42 TMJ arthropathy Acute M26.659 Demyelinating lesion Acute G37.9 Atrial flutter Acute I48.92 Memory loss Acute R41.3 Migraine headache without aura Acute G43.009 Cerebral meningioma Acute D32.0 Ataxia Acute R27.0 Nystagmus Acute H55.00 Cerebellar dysfunction Acute G93.40 Hx of esophageal reflux Acute Z87.19 Stroke due to embolism Acute ~202 I63.9 Hemorrhoids Acute K64.9 Medical History Medical History Chronic headache Depression GERD (gastroesophageal reflux disease) Tobacco use Urinary frequency History of endometrial cancer S/p hysterectomy Ovaries still in situ?? Carpal tunnel syndrome on both sides Arthritis Anxiety Asthma, chronic Back pain Type 2 diabetes mellitus Hypertension Hyperlipidemia Chronic pain Cannabis abuse Fibromyalgia Hypomagnesemia Surgical History Surgical History S/P appendectomy S/P carpal tunnel release S/P total knee replacement bilateral? R 2009 and L 2014 S/P cholecystectomy S/P right hemicolectomy 2015; secondary to volvulus History of colonoscopy (~05/2022) H/O esophagogastroduodenoscopy (~05/2022) H/O knee surgery H/O: hysterectomy endometrial cancer Tobacco Smoking/Tobacco Use Status: Former Tobacco Use Passive smoking exposure: No Alcohol Alcohol Intake: former Substance Use Substance use: Current Sobriety Substance use type: marijuana Prental History History 4 Para 2 Hx # Term Pregnancies 2 Multiple births Hx # Pregnancies Ectopic pregnancies AB induced Hx Number of Living Children AB spontaneous 2 Past Pregnancies Del. Date GA/Weeks # Preg Succ Route Wgt Sex Labor Lgth [facility]h [facility] No vaginal 3345.244 g [facility] 02/[facility]/83 40 No vaginal 3742.137 g Female [facility] Delivery Date: 02/27/80 Last Updated by: Monik Corley Delivery Date: 02/15/83 Last Updated by: Monik Durbin Vital Signs and Lab Results Lab Results Blood Type / Crossmatch: No Data to Display Complete Blood Count: No Data to Display Complete Metabolic Panel: No Data to Display Liver Function Panel: No Data to Display Coagulation Panel: No Data to Display Cardiac Panel: No Data to Display Arterial Blood Gas: No Data to Display Venous Blood Gas: No Data to Display Pancreas Panel: No Data to Display Thyroid Panel: No Data to Display Infectious Disease: No Data to Display Blood Cultures: No Data to Display Toxicology Panel: No Data to Display Anesthesia Assessment and Plan Anesthesia History Personal History: No History of Anesthesia Complications and Other Family History: No Family History of Anesthesia Complications Exercise Tolerance Exercise Tolerance: Metabolic Equivalents>4 Cardiac & Pulmonary Exam Cardiac Exam: Normal S1/S2 Heart Sounds Pulmonary Exam: Clear Bilateral Breath Sounds Implantable Cardiac Device Does patient have a Pacemaker or an ICD?: No Airway Exam Known Difficult Airway: No Mallampati Class: 3 Mouth Opening: Normal (> 3cm) Thyromental Distance: Greater than 3 cm Neck Range of Motion: Full ROM Neck Circumference: Normal Teeth Condition: Normal Dentition (two thin teeth. Indicated lower right. Reports due to grinding teeth) ASA Classification ASA Score: ASA 3 Emergency Case?: No NPO Status NPO Status: NPO Clears >2 hours, Solids >8 hours Anesthesia Plan Resuscitation Status: Full Code Anesthesia Technique: General Anesthesia Airway Planned: Natural Airway Monitors Used: Standard Monitors Preoperative Comments:: 64 yo female for hemorrhoid banding. Extremely nervous. Sig PMHx: aflutter, HTN, GERD (famotidine), YESENIA, RLS (ropinirole), TMJ, meningioma (small right frontal), CVA (unclear if she had a CVA. Plavix), DM2 (with neuropathy), fibromyalgia, headaches (valproic acid). former smoker. Occ cannabis. Followed by neuro due to nystagmus, imbalance, ataxia, vertigo. ECG: sinus tach. Previous Anes: - colo/egd, glide 3 grade 1, ETT ? d/t active reflux.
[2025-02-25 06:26] VITALS: BMI 39.6
[2025-02-25 06:30] VITALS: BP 113/80; PULSE 84; RESP 17; TEMP 37; O2SAT 97
[2025-02-25] MEDS: Lactated Ringers 1,000 ML 80 ML IV (07:25)
[2025-02-25] MEDS: Bupivacaine 0.25% Pres-Free 10 ML VIAL (07:44)
[2025-02-25] MEDS: Bupivacaine LIPOSOME/PF 133 MG/10 ML VIAL IJ (07:44)
[2025-02-25 07:53] VITALS: BP 94/50; PULSE 74; RESP 16; TEMP 36.2; O2SAT 94
--- NOTE | 2025-02-25 08:02 | W.PM.OP ---
Operative Note Operative Note PRE-OP DIAGNOSIS: Internal hemorrhoids POST-OP DIAGNOSIS: same PROCEDURE: Anorectal exam under anesthesia with suction rubber band ligation of right anterior and right posterior hemorrhoid columns SURGEON: Dandy Wing ANESTHESIA TYPE: Local By Surgeon and MAC Refer to Anesthesia Record ESTIMATED BLOOD LOSS: 0 PATHOLOGY: none sent Patient was transported to: same day Patient's condition: stable Indications: Raghu is a 64-year-old woman with symptomatic internal hemorrhoids. She has hematochezia, and symptoms of hemorrhoid prolapse Findings: Internal hemorrhoids involving all 3 columns Procedure Description: I met with Cherelle and her accompanying friend in the day surgery unit, and reviewed the interval history. I explained the natural history of internal and external hemorrhoid disease, and various treatment options. I explained the role of rubber band ligation of internal hemorrhoids, and explained the risks and the benefits of the procedure to Cherelle and she was able to provide informed consent. Next, we went back to the procedure room. She was assisted to the left lateral decubitus position. Anesthesia was initiated, when she was comfortable, established a generous field block around the anus using local anesthetic with Exparel. There are signs of external hemorrhoid disease in the form of redundant perianal skin and skin tags. There is no obvious thrombosed external hemorrhoids. I performed a digital rectal exam which felt normal. Next, using a small fiberoptic lighted anoscope, I examined the anal column and distal rectal vault. Grade 2 internal hemorrhoids involving all 3 columns. The right anterior and posterior columns were most obvious. I performed suction rubber band ligation of the right anterior and posterior column in usual fashion. She tolerated this well, was transferred back to the day surgery unit. Date of Procedure: 02/25/25
[2025-02-25 08:32] VITALS: BP 124/66; PULSE 74; RESP 16; TEMP 37; O2SAT 95
--- NOTE | 2025-02-25 08:52 | W.ANESPOSTOP ---
Postoperative Evaluation Date, Time and Location Date Performed: 02/25/25 Time Performed: 07:50 Patient Location: Day Surgery Unit Vital Signs Most Recent Imported Vital Signs: Most Recent Vital Signs Temp Pulse Resp BP Pulse Ox 36.2 C L 74 16 94/50 L 94 02/25/25 07:53 02/25/25 07:53 02/25/25 07:53 02/25/25 07:53 02/25/25 07:53 Pain Score Most Recent Pain Score: Most Recent Pain Score Pain Level 5 02/25/25 07:53 Assessment Mental Status: Awake (Alert & Oriented to Patient Baseline) Airway and Respiratory Function: Patent airway with normal (patient baseline) respiratory exam Cardiovascular Function: Hemodynamically Stable Hydration Status: Adequately Hydrated Nausea & Vomiting: No Nausea or Vomiting Pain: Pain is tolerable per patient Peripheral Nerve Block: Patient did not receive a nerve block
== END 2025-02-25 09:00 | disposition home or self-care (01) ==
PROVIDERS: PCP Nurse Practitioner Family; Visit Provider Surgery
PROC: (CPT 46221; principal; 2025-02-25 07:30)
DX: K64.1 Second degree hemorrhoids (principal)
CPT/HCPCS: 46221; J0665; J0666; J2405; J2704

== ENCOUNTER → 2025-03-18 09:04 | Outpatient (BNVA) | payer MEDICARE, MEDICAID, SELFPAY | PROVIDERS: PCP Nurse Practitioner Family; Visit Provider Psychiatry & Neurology Neurology | DX: G93.40 Encephalopathy, unspecified (principal); H55.00 Unspecified nystagmus; R27.0 Ataxia, unspecified; D32.0 Benign neoplasm of cerebral meninges; G89.29 Other chronic pain; G43.009 Migraine without aura, not intractable, without status migrainosus; R41.3 Other amnesia; I63.9 Cerebral infarction, unspecified; G25.81 Restless legs syndrome; E61.1 Iron deficiency; I10 Essential (primary) hypertension; E11.9 Type 2 diabetes mellitus without complications; J45.909 Unspecified asthma, uncomplicated | CPT/HCPCS: 99214 ==

== ENCOUNTER → 2025-03-20 09:09 | Outpatient (BNVA) | payer MEDICARE, MEDICAID, SELFPAY | PROVIDERS: PCP Nurse Practitioner Family; Referring Provider Nurse Practitioner Family; Visit Provider Surgery | DX: K64.8 Other hemorrhoids (principal) | CPT/HCPCS: 99213 ==

== ENCOUNTER 2025-04-10 01:06 | Outpatient (CLI) | payer MEDICARE, MEDICAID, SELFPAY ==
[2025-04-10] MEDS: Gadoterate meglumine 20 ML VIAL IVP (09:12)
[2025-04-10] MEDS: Normal Saline Flush 10 ML SYR IJ (09:15)
--- NOTE | 2025-04-10 11:30 | DI.MRI_ITS ---
Exam(s) MR BRAIN WO/W EXAM: MR BRAIN WO/W CLINICAL HISTORY: worsening VELEZ and vertigo, cerebral meningioma, D32.0 TECHNIQUE: Multiplanar multisequence MRI of the brain was performed. Both noninfused and contrast infused sequences were performed. IV Contrast injected was 20 cc Dotarem. COMPARISON: MR MR BRAIN WO/W from 06/24/2024 FINDINGS: CEREBRAL PARENCHYMA: No evidence of intracranial hemorrhage, new mass effect nor shift of midline structure. The previously described right frontal convexity meningioma exhibits minimal if any significant increase in size, presently measuring 12 mm AP by 8 mm wide by 10 mm craniocaudal. There is no edema in the adjacent intra-axial brain. No new mass effect. No extraaxial fluid collections. Ventricles are not enlarged nor shifted. There is no significant focal signal abnormality in the cerebellar hemispheres nor within the luis, midbrain, and thalami. There is no abnormal signal abnormality in the periventricular white matter. DWI: No areas of restricted diffusion to suggest acute ischemic event. SWI: No microhemorrhages evident. There are no ring enhancing lesions in the brain. There is no new abnormal meningeal enhancement. PITUITARY GLAND: No mass nor parasellar abnormality. No obvious abnormality in the cavernous sinuses. FLOW VOIDS: The expected flow void are noted. No evidence of obvious aneurysm nor obvious vascular malformation. PARANASAL SINUSES: The visualized paranasal sinuses appear unremarkable. ORBITS: Previous bilateral cataract surgery. IMPRESSION: 1. No significant acute intracranial findings on this MRI scan of the brain. There is minimal if any significant change in the size of the right frontal convexity meningioma and there is no new edema nor mass effect upon the adjacent brain. 2. No other significant focal findings in the brain. DATA REPOSITORY:
== END 2025-04-10 01:26 ==
LOC: DI 01:06
PROVIDERS: PCP Nurse Practitioner Family; Visit Provider Psychiatry & Neurology Neurology
DX: D23.0 Other benign neoplasm of skin of lip (principal); R42 Dizziness and giddiness
CPT/HCPCS: 70553

== ENCOUNTER → 2025-04-16 13:30 | Outpatient (BNVA) | payer MEDICARE, MEDICAID, SELFPAY | PROVIDERS: PCP Nurse Practitioner Family; Referring Provider Nurse Practitioner Family; Visit Provider Podiatrist | DX: M72.2 Plantar fascial fibromatosis (principal); M76.61 Achilles tendinitis, right leg; M76.62 Achilles tendinitis, left leg; M67.01 Short Achilles tendon (acquired), right ankle; M67.02 Short Achilles tendon (acquired), left ankle; L84 Corns and callosities; E11.40 Type 2 diabetes mellitus with diabetic neuropathy, unspecified | CPT/HCPCS: 99213 ==

== ENCOUNTER → 2025-04-28 11:05 | Outpatient (BNVA) | payer MEDICARE, MEDICAID, SELFPAY | PROVIDERS: PCP Nurse Practitioner Family; Referring Provider Nurse Practitioner Family; Visit Provider Psychiatry & Neurology Neurology | DX: Z71.89 Other specified counseling (principal) | CPT/HCPCS: 99211 ==

== ENCOUNTER → 2025-06-16 14:13 | Outpatient (BNVA) | payer MEDICARE, MEDICAID, SELFPAY | PROVIDERS: PCP Nurse Practitioner Family; Referring Provider Nurse Practitioner Family; Visit Provider Podiatrist | DX: M72.2 Plantar fascial fibromatosis (principal); M79.671 Pain in right foot; M79.672 Pain in left foot; E11.40 Type 2 diabetes mellitus with diabetic neuropathy, unspecified; M76.61 Achilles tendinitis, right leg; M76.62 Achilles tendinitis, left leg; M67.01 Short Achilles tendon (acquired), right ankle; M67.02 Short Achilles tendon (acquired), left ankle; L84 Corns and callosities | CPT/HCPCS: 20550; J1100; J0702 ==

== ENCOUNTER 2025-07-02 15:12 | Outpatient (REF) | payer MEDICARE, MEDICAID, SELFPAY ==
[2025-07-02 16:06] LABS: HCT 39.1 % (36.0-46.0); HGB 12.3 g/dL (11.2-15.7); MCH 29.4 pg (27.0-33.0); MCHC 31.5 % (32.0-36.0); MCV 94 fL (80-95); MPV 9.2 fL (8.0-11.0); Platelet Count 276 10^3/uL (130-400); RBC 4.18 10^6/uL (3.93-5.22); RDW 12.4 % (11.7-14.6); RDW-SD 42.6 fL; WBC 6.68 10^3/uL (4.4-10.8)
[2025-07-02 17:19] LABS: ALT 28 U/L (14-59); AST 13 U/L (15-37); Albumin 3.9 g/dL (3.4-5.0); Alkaline Phosphatase 82 U/L (46-116); Anion Gap 8.3 mmol/L (3-11); BUN 23 mg/dL (7-18); Bilirubin, Total 2.1 mg/dL (0.2-1.0); CO2 32.7 mmol/L (21.0-32.0); Calcium 9.5 mg/dL (8.5-10.1); Chloride 102 mmol/L (98-107); Estimated GFR 71.39 (mL/min/1.73m2); Ferritin 135 ng/mL (8-252); Glucose 108 mg/dL (74-106); Potassium 4.2 mmol/L (3.5-5.1); Sodium 143 mmol/L (136-145); Total Protein 6.9 g/dL (6.4-8.2)
[2025-07-02 18:02] LABS: Iron 90 ug/dL (50-170); Total Iron Binding Capacity 443 ug/dL (250-450); Transferrin Sat 20 % (15-50)
== END 2025-07-02 15:13 | disposition home or self-care (01) ==
LOC: NCHCN 15:12
PROVIDERS: PCP Nurse Practitioner Family; Visit Provider Nurse Practitioner Family
DX: R07.89 Other chest pain (principal)
CPT/HCPCS: 80053; 85027; 82728; 83540; 83550

== ENCOUNTER 2025-07-07 09:01 | Emergency (ER) | payer MEDICARE, MEDICAID, SELFPAY ==
[2025-07-07] VITALS (25 sets, daily range): BP systolic 102–128; BP diastolic 52–81; PULSE 70–86; RESP 12–23; TEMP 36.6; O2SAT 93–96
--- NOTE | 2025-07-07 09:00 | RT.EKG_ITS ---
APPROVED REPORT Exam: Resting ECG Reason for Exam: chest pain Patient Location: E HR:86 bpm ECG Measurements Heart Rate 86 AXIS VT 157 P 64 QRSd 87 QRS 58 QT 371 T 66 QTc 443 Conclusion Sinus rhythm...normal P axis, V-rate 60- 99 No Occlusion OR
--- NOTE | 2025-07-07 09:15 | DI.RAD_ITS ---
Exam(s) XR PORTABLE CHEST AP EXAM: XR PORTABLE CHEST AP CLINICAL HISTORY: Chest pain. TECHNIQUE: 2D digital imaging was performed. COMPARISON: No exams were available for comparison FINDINGS: Single AP portable view. Heart size is upper normal. The mediastinum is not widened. Lungs are clear. No infiltrates nor obvious pleural effusions. Few calcified granulomas are noted in the right lung. IMPRESSION: No acute pulmonary findings on this single AP portable view of the chest. DATA REPOSITORY: RADIATION DOSE DELIVERED:
[2025-07-07 09:37] LABS: Abs Immature Grans 0.02 10^3/uL (0.0-0.06); HCT 36.0 % (36.0-46.0); HGB 11.5 g/dL (11.2-15.7); Immature Grans % 0.4 %; MCH 29.8 pg (27.0-33.0); MCHC 31.9 % (32.0-36.0); MCV 93 fL (80-95); MPV 9.0 fL (8.0-11.0); Platelet Count 237 10^3/uL (130-400); RBC 3.86 10^6/uL (3.93-5.22); RDW 12.5 % (11.7-14.6); RDW-SD 42.8 fL; WBC 4.55 10^3/uL (4.4-10.8)
--- NOTE | 2025-07-07 09:53 | W.ED.GENAD ---
Discharge Plan Disposition Patient Disposition: Home Discharge Details Clinical Impression: Chest pain, unspecified Primary Care Provider: BHAVANI GUTIERREZ ED Provider: Abisai Chaparro [place] Meds and New Rx's Prescriptions: Continued One-A-Day Women's 50 Plus 400-20 mcg tablet 1 tab PO DAILY valproic acid 250 mg capsule 250 mg PO BID Qty: 180 3RF gabapentin 300 mg capsule 600 mg PO QHS Qty: 180 3RF ferrous gluconate 324 mg (37.5 mg iron) tablet 324 mg PO DAILY montelukast 10 mg tablet 10 mg PO DAILY acetaminophen [Tylenol] 325 mg capsule 325 mg PO ONCE PRN colestipol 1 gram tablet 1 g PO DAILY bupivacaine HCl 0.5 % (5 mg/mL) solution 0.5 ml intra-articular ONCE Qty: 0.5 0RF metformin 500 mg tablet 500 mg PO DAILY ropinirole 0.25 mg tablet 0.25 mg PO DAILY Qty: 90 3RF Rx Instructions: in the afternoon for RLS Emgality Pen 120 mg/mL pen injector 240 mg subcut ONCE Qty: 2 0RF Rx Instructions: as a single dose; administer as two 120 mg injections at separate sites lorazepam 0.5 mg tablet 0.5 mg PO ONCE PRN (Reason: anxiety/claustrophobia) Qty: 2 0RF Rx Instructions: Take one tablet 30min prior to MRI. Ok to take second at time of MRI if still anxious. Do not drive after taking. mecobalamin (vitamin B12) 500 mcg tablet,chewable PO famotidine 20 mg tablet 20 mg PO DAILY buspirone 5 mg tablet 5 mg PO BID atorvastatin 20 mg tablet 20 mg PO DAILY clopidogrel 75 mg tablet 75 mg PO DAILY (DME) Accu-Chek Shannen Plus test strp Strip See Rx Instructions .Route Rx Instructions: As directed, Use 1 strip via meter 3 times a day. trazodone 50 mg tablet 50 mg PO QHS duloxetine [Cymbalta] 20 mg capsule,delayed release(DR/EC) 20 mg PO BID ketoconazole 2 % cream TOPICAL fluticasone propionate 50 mcg/actuation spray,suspension INTRANASAL Breo Ellipta 50-25 mcg/dose blister with device INHALATION docusate sodium [Colace] 100 mg capsule 100 mg PO DAILY Qty: 10 0RF Rx Instructions: Take 1 tablet by mouth daily Discharge Instructions Additional Instructions: You were seen in the emergency department for your chest pain. Your blood work showed no sign of a heart attack. There is also no sign of a blood clot in your lungs. As we discussed if you develop any sweating associated with your pain if your pain travels down your arms or if you have any other concerns please return to the emergency department. Otherwise please follow-up with your primary care provider next week. Discharge Data Discharge Date/Time-TO BE ENTERED AT DEPARTURE: 07/07/25 11:45 HPI General Date/Time Provider Initiated Documentation: 07/07/25 09:24. HPI Narrative: MDM This is an overall well-appearing normothermic and not tachycardic 65-year-old female with risk factors for ACS and a nonischemic ECG for which she will undergo troponin testing. No tearing quality to suggest aortic dissection. Patient does endorse some occasional shortness of breath and is not PERC negative so we will send a D-dimer. No pain out of proportion to suggest necrotizing soft tissue infection. No abnormal lung sounds nor fevers nor cough to suggest pneumonia. Not hypotensive nor tachycardic so my suspicion is low for cardiac tamponade. No rash to chest to suggest zoster. Equal breath sounds and no chest trauma so my suspicion is low for pneumothorax. Patient has not been vomiting to suggest increased risk for esophageal rupture. She has no right upper quadrant tenderness nor nausea nor diarrhea to suggest acute cholecystitis. She has an elevated BMI so we will obtain a lipase to assess for pancreatitis. 9:56 AM CBC lacks anemia thrombocytopenia and leukocytosis. 10:30 AM Initial reassuring troponin. Mildly elevated lipase less than 3 times upper limit of normal not consistent pancreatitis. Comprehensive metabolic panel showing mild improved hyperbilirubinemia. Hyperglycemia but no anion gap. Normal bicarbonate. Not consistent with DKA. No ARISTEO. Reassuring D-dimer. 11:35 AM Repeat troponin reassuring. I met with the patient. I went over her reassuring results. I offered her hospitalization as she is certainly high risk for ACS. We discussed that she could remain in the hospital and I could trend troponins to ensure that she did not develop any worsening chest pain or any signs of ischemia. She requested to be discharged. We discussed that she should follow-up with her primary care provider. I asked health community services officer Ly to have her seen in the next week by her PCP for consideration of possibility of stress testing or other ischemic evaluation such as a coronary CT angiogram. In the interim I advised patient that if she developed recurrent chest pain if she passed out or develop any diaphoresis with her chest pain that she should return to the ED. She understood her return indications and was discharged with an empiric trial of expectant outpatient management. HEART SCORE Chest pain Diagnostic Protocol: [- History/Physical/Gestalt: Moderately Suspicious (+1)] [- EKG: Nonspecific repolarization (+1)] [- AGE: 65 and older (+2)] [- RISK FACTORS: 3 or more risk factors and/or known CAD (+2)] [-TROPONIN: <= normal limit (0)] - TOTAL SCORE: 6 - Risk Factors: DM, current or recent smoker, HTN, HLD, family hx of CAD, obesity - INTERPRETATION: With a total score of 3 or less, risk of major cardiac event within six weeks 1.7%, likely lower with two negative troponins. Chronic conditions affecting the care of the patient: Elevated BMI and diabetes CVA hyperlipidemia History obtained from an outside historian: N/A External record review: N/A Diagnostic interpretations performed by me: Per my independent interpretation chest x-ray shows: Per my independent interpretation EKG shows: Narrow complex normal sinus rhythm at a rate of 86. Normal axis. Intervals within normal limits. No ST segment abnormalities. T wave flattening in aVL. No prior for comparison. No acute injury pattern. HPI This is a patient with a history of diabetes presenting with chest pain. The patient reports experiencing chest pain, described as a sharp sensation in the middle of her chest that occasionally radiates to both sides. This pain is accompanied by a feeling of heaviness in her arms and legs, which she describes as dragging. The onset of these symptoms was approximately 3 weeks ago while she was volunteering at a dinner. She notes that the pain seems to be triggered by physical activity and subsides when she is at rest. She also mentions a recent cough, which she attributes to allergies, and some swelling in her legs. She has no history of blood clots in her legs or lungs. She is scheduled for a stress test but is unsure of the date. Her primary care physician, Dr. Gutierrez, recommended this visit due to the persistence of her symptoms. She has a history of two strokes and possible brain compression but has no stents in her heart. She has not experienced any fainting episodes but does report dizziness due to vertigo. She is not a smoker. The patient has diabetes and is on metformin, keeping her blood sugar below 200. She reports no recent fever. PAST SURGICAL HISTORY: Knee surgery. Exam General: Well-appearing in no acute distress speaking in complete sentences. Head: Normocephalic, atraumatic. Eye: Extraocular eye movements intact. No conjunctival injection. No scleral icterus. Ear, nose, mouth, throat: Grossly normal inspection. Normal voice, handling secretions normally. Neck: Trachea midline. Cardiovascular: Well-perfused distal extremities. Regular rate and rhythm Respiratory: Nonlabored respiration. Clear lungs bilaterally Gastrointestinal: Nondistended abdomen. Soft. Nontender. Musculoskeletal: No significant lower extremity pitting edema. Moving all 4 extremities spontaneously. Negative Homans' sign bilaterally. Skin: Normal for age and race, grossly normal temperature and turgor. No acute rash. Neurologic: Alert and appropriate, no apparent acute deficits. Psychiatric: Mood and manner are appropriate. Grooming and personal hygiene are appropriate. Related Data Home Medications ?Medication ?Instructions ?Recorded ?Confirmed atorvastatin 20 mg tablet 20 mg PO DAILY 04/07/22 07/07/25 blood sugar diagnostic (Accu-Chek 04/07/22 07/07/25 Shannen Plus test strips) buspirone 5 mg tablet 5 mg PO BID 04/07/22 07/07/25 clopidogrel 75 mg tablet 75 mg PO DAILY 04/07/22 07/07/25 famotidine 20 mg tablet 20 mg PO DAILY 04/07/22 07/07/25 duloxetine 20 mg capsule,delayed 20 mg PO BID 04/11/22 07/07/25 release (Cymbalta) fcyaxawqlgcf-wbiyzfih-qbxixxd-folic 1 tab PO DAILY 08/16/22 07/07/25 acid 400 mcg-vit K1 20 mcg tablet (One-A-Day Women's 50 Plus) acetaminophen 325 mg capsule 325 mg PO ONCE PRN 05/03/23 07/07/25 (Tylenol) trazodone 50 mg tablet 50 mg PO QHS 03/18/24 07/07/25 ferrous gluconate 324 mg (37.5 mg 324 mg PO DAILY 12/06/24 07/07/25 iron) tablet gabapentin 300 mg capsule 600 mg (2 x 300 mg) PO QHS #180 01/13/25 07/07/25 caps valproic acid 250 mg capsule 250 mg PO BID #180 caps 01/13/25 07/07/25 colestipol 1 gram tablet 1 g PO DAILY 01/16/25 07/07/25 docusate sodium 100 mg capsule 100 mg PO DAILY #10 caps 02/25/25 07/07/25 (Colace) fluticasone furoate 50 inhalation 02/25/25 06/16/25 mcg-vilanterol 25 mcg/dose inhalation powder (Breo Ellipta) fluticasone propionate 50 intranasal 02/25/25 06/16/25 mcg/actuation nasal spray,suspension ketoconazole 2 % topical cream applic topical 02/25/25 06/16/25 galcanezumab-gnlm 120 mg/mL 240 mg (2 mL) subcut ONCE #2 mL 03/18/25 07/07/25 subcutaneous pen injector (Emgality Pen) lorazepam 0.5 mg tablet 0.5 mg PO ONCE PRN 03/18/25 07/07/25 anxiety/claustrophobia #2 tabs metformin 500 mg tablet 500 mg PO DAILY 03/18/25 07/07/25 ropinirole 0.25 mg tablet 0.25 mg PO DAILY #90 tabs 03/18/25 07/07/25 mecobalamin (vitamin B12) 500 mcg mcg PO 03/20/25 06/16/25 chewable tablet montelukast 10 mg tablet 10 mg PO DAILY 06/12/25 07/07/25 Previous Rx's ?Medication ?Instructions ?Recorded gabapentin 300 mg capsule 600 mg (2 x 300 mg) PO QHS #180 01/13/25 caps valproic acid 250 mg capsule 250 mg PO BID #180 caps 01/13/25 docusate sodium 100 mg capsule 100 mg PO DAILY #10 caps 02/25/25 (Colace) galcanezumab-gnlm 120 mg/mL 240 mg (2 mL) subcut ONCE #2 mL 03/18/25 subcutaneous pen injector (Emgality Pen) lorazepam 0.5 mg tablet 0.5 mg PO ONCE PRN 03/18/25 anxiety/claustrophobia #2 tabs ropinirole 0.25 mg tablet 0.25 mg PO DAILY #90 tabs 03/18/25 Allergies Allergy/AdvReac Type Severity Reaction Status Date / Time lorazepam Allergy Unknown Unknown Verified 07/07/25 09:07 codeine Allergy Skin Rash Verified 07/07/25 09:07 Penicillins Allergy Skin Rash Verified 07/07/25 09:07 pollen extracts Allergy Other (See Verified 07/07/25 09:07 Comment) Sulfa (Sulfonamide Allergy Skin Rash Verified 07/07/25 09:07 Antibiotics) house dust AdvReac Unknown Other (See Verified 07/07/25 09:07 Comment) adhesive AdvReac Skin Rash Verified 07/07/25 09:07 aspirin AdvReac because Verified 07/07/25 09:07 of my asthma latex AdvReac rash Verified 07/07/25 09:07 General Stated Complaint: Chest Pain YANET: 3 Course Vital Signs Vital signs: Vital Signs Temperature 36.6 C 07/07/25 09:03 Pulse 85 07/07/25 09:03 Respiratory Rate 20 07/07/25 09:03 Blood Pressure 128/81 07/07/25 09:03 Pulse Oximetry 95 07/07/25 09:03 Temperature 36.6 C 07/07/25 09:03 Temperature Source Oral 07/07/25 09:03 Pulse 80 07/07/25 09:40 Pulse 80 07/07/25 09:40 Respiratory Rate 13 07/07/25 09:40 Respiratory Effort Normal, Non-Labored 07/07/25 09:26 Respiratory Depth Normal 07/07/25 09:26 Respiratory Pattern Normal 07/07/25 09:26 Blood Pressure 128/81 07/07/25 09:03 Pulse Oximetry 94 07/07/25 09:40 Lab/Test Results Lab/Test Results: Laboratory Tests Range/Units 07/07/25 09:22 WBC (4.4-10.8) 10^3/uL 4.55 RBC (3.93-5.22) 10^6/uL 3.86 L Hgb (11.2-15.7) g/dL 11.5 Hct (36.0-46.0) % 36.0 MCV (80-95) fL 93 MCH (27.0-33.0) pg 29.8 MCHC (32.0-36.0) % 31.9 L RDW (11.7-14.6) % 12.5 Plt Count (130-400) 10^3/uL 237 MPV (8.0-11.0) fL 9.0 Immature Gran % % 0.4 Neutrophils % % 55.7 Lymphocytes % % 31.2 Monocytes % % 8.1 Eosinophils % % 3.5 Basophils % % 1.1 Nucleated RBC % (0.0-0.3) % 0.0 Absolute Neutrophils (1.2-6.7) 10^3/uL 2.53 Absolute Lymphocytes (1.2-3.4) 10^3/uL 1.42 Absolute Monocytes (0.1-0.8) 10^3/uL 0.37 Absolute Eosinophils (0.0-0.7) 10^3/uL 0.16 Absolute Basophils (0.0-0.2) 10^3/uL 0.05 PFSH All Active Problems (Updated 07/07/25 @ 10:54 by Abisai Chaparro MD) Chest pain, unspecified (Acute) Anxiety (Chronic) Type 2 diabetes mellitus (Acute) Internal hemorrhoids (Acute) Diabetic neuropathy (Acute) Corns and callosities (Acute) Achilles tendon contracture, bilateral (Acute) Achilles tendinitis of both lower extremities (Acute) Plantar fasciitis, bilateral (Acute) Iron deficiency (Acute) RLS (restless legs syndrome) (Acute) Vertigo (Acute) TMJ arthropathy (Acute) Demyelinating lesion (Acute) Atrial flutter (Acute) Memory loss (Acute) Migraine headache without aura (Acute) Cerebral meningioma (Acute) Ataxia (Acute) Nystagmus (Acute) Cerebellar dysfunction (Acute) Hx of esophageal reflux (Acute) Stroke due to embolism (Acute ~2020) Hemorrhoids (Acute) Medical History Rectal prolapse Chronic headache Depression GERD (gastroesophageal reflux disease) Tobacco use Urinary frequency History of endometrial cancer S/p hysterectomy Ovaries still in situ?? Carpal tunnel syndrome on both sides Arthritis Asthma, chronic Back pain Hypertension Hyperlipidemia Chronic pain Cannabis abuse Fibromyalgia Hypomagnesemia Surgical History History of banding of hemorrhoid (~01/2025) S/P appendectomy S/P carpal tunnel release S/P total knee replacement bilateral? R 2009 and L 2014 S/P cholecystectomy S/P right hemicolectomy 2016; secondary to volvulus History of colonoscopy (~05/2022) H/O esophagogastroduodenoscopy (~05/2022) H/O knee surgery H/O: hysterectomy endometrial cancer Family History Father Hypertension Hyperlipidemia Diabetes Heart disease Mother Diabetes Social History Smoking/Tobacco Use Status: Former Tobacco Use Quit Date: 10/30/01 Smoking risk assessment performed?: Yes Alcohol Intake: former Drug use: Current Sobriety Substance use type: does not use Household members: family Housing: house Number of Children: 2 current occupation: Disability Current gender identity: female Do you feel safe at home: Yes Do you feel safe in your relationship?: Yes Additional Social history: [employer] Female Reproductive History Menstrual Age of Menarche: 12 Duration of menses: 6-7 days Menopause type: natural History History 4 Para 2 Hx # Term Pregnancies 2 Multiple births Hx # Pregnancies Ectopic pregnancies AB induced Hx Number of Living Children AB spontaneous 2 Past Pregnancies Del. Date GA/Weeks # Preg Succ Route Wgt Sex Labor Lgth Anesthesia Location Prov Complic 02/27/80 39 No vaginal 3345.244 g Male [facility] 02/15/83 40 No vaginal 3742.137 g Female [facility] Delivery Date: 02/27/80 Last Updated by: Monik Corley Delivery Date: 02/15/83 Last Updated by: Monik Durbin
[2025-07-07 10:12] LABS: D-Dimer 392 ng/mlFEU (<500)
[2025-07-07 10:16] LABS: ALT 32 U/L (14-59); AST 11 U/L (15-37); Albumin 3.5 g/dL (3.4-5.0); Alkaline Phosphatase 82 U/L (46-116); Anion Gap 7.0 mmol/L (3-11); BUN 19 mg/dL (7-18); Bilirubin, Total 1.8 mg/dL (0.2-1.0); CO2 29.0 mmol/L (21.0-32.0); Calcium 8.8 mg/dL (8.5-10.1); Chloride 104 mmol/L (98-107); Estimated GFR 56.11 (mL/min/1.73m2); Glucose 302 mg/dL (74-106); Lipase 112 U/L (<78); Potassium 4.0 mmol/L (3.5-5.1); Sodium 140 mmol/L (136-145); Total Protein 6.7 g/dL (6.4-8.2); Troponin I 6 ng/L (<or=51)
[2025-07-07 11:12] LABS: Troponin I 6 ng/L (<or=51)
== END 2025-07-07 11:45 | disposition home or self-care (01) ==
PROVIDERS: Emergency Provider Emergency Medicine; PCP Nurse Practitioner Family
DX: R07.9 Chest pain, unspecified (principal)
CPT/HCPCS: 36415; 80053; 83690; 93005; 99284; 71045; 84484; 85025; 85379; 93010; 99283

== ENCOUNTER 2025-07-10 02:47 | Outpatient (CLI) | payer MEDICARE, MEDICAID, SELFPAY ==
--- NOTE | 2025-07-10 | ETT_ITS ---
APPROVED REPORT Exam: Exercise Treadmill Patient Location: Out-Patient Room/Bed: Stress Nurse: Pooja Garcia RN Ordering Provider:BHAVANI BRENDA, Contact Number: [phone] BMI: 40.61 Baseline Rhythm: Sinus Rhythm Indications: Chest pain Medical History Medical History: DMT2, memory impairment, balance impairment, asthma, YESENIA, fibromyalgia, GERD, mixed anxiety and depressive order, hx cardiovascular disease, dizziness, aflutter, HLD, chronic pain, hx of malignant neoplasm of uterine body, TIA, migraines Cardiac Medications: Atorvastatin, breo ellipta, buspirone, clopidogrel, colestipol, duloextine, emgality, famotidine, ferrous gluconate, gabapentin, metformin ER, montelukast, ropinirole, tramadol, trazadone, valproic acid Allergies: Adhesive tape, animal dander, aspirin, codeine, house dust, lorazepam, penicillins, sulfa Cardiac Risk Factors: Family hx, HTN, HLD, CVD, diabetes, asthma, former smoker Previous Cardiac Procedures: None Pretest Chest Pain Characteristics: None Exercise History: Indeterminate Physical Disabilities: Hx. balance disorder, vertigo, patietn states she has had two knee surgeries Lung Sounds: Clear to auscultation Heart Sounds: Regular Stress Test Details Test: Exercise stress testing was performed using a Dustin protocol. Rest Stress HR Resting HR Supine: 77 bpm Max Heart Rate (APMHR): 156 bpm Resting HR Standin bpm Target HR (85% APMHR): 133 bpm Max HR Achieved: 133 bpm % of APMHR: 85 Recovery HR: 80 bpm HR response to stress: Normal HR response to stress BP Resting BP Supine: 120/78 mmHg Resting BP Standin/88 mmHg Max BP: 160/90 mmHg Recovery BP: 130/72 mmHg BP response to stress: Normal blood pressure response to stress. ECG Resting ECG: Sinus Rhythm Stress ECG: Sinus Tachycardia ST Change: No significant ST segment changes noted Arrhythmia: Occasional PVC's Recovery ECG: Sinus Rhythm Recovery ST Change: No significant ST segment changes noted Recovery Arrhythmia: Occasional PVC's Clinical Reason for Termination: Target HR Achieved, Fatigue, Moderate SOB Stress Symptoms: General Fatigue, Moderate SOB Exercise duration: 04 min21 sec Highest Stage Reached: Stage 2: 2.5 mph at 12% grade. Exercise capacity: 5 METs Angina Score: None Rate Pressure Product: [id number] Stress ECG Conclusion 1. Resting electrocardiogram was normal 2. Patient exercised on the Dustin protocol and completed workload of 5 METS 3. Normal heart rate and blood pressure response to exercise. The patient achieved 85% of maximal predicted heart rate for age 4. There was no electrocardiographic evidence of myocardial ischemia 5. There were no significant dysrhythmias Stress Test Summary STAGE Time (mins) Speed (mph) Grade (%) HR BP SpO2 SYMPTOMS METS Supine 77 120/78 94% Standing 83 110/80 1 3 1.7 10 122 140/82 95% 4.5 2 6 2.5 12 133 Mod SOB, fatigue 7 1 min recovery 115 160/90 95% Mod SOB, fatigue 3 min recovery 85 146/70 96% 6 min recovery 80 130/72 95% All symtoms resolved at test end. Treadmill stopped per patient request r/t moderate SOB and generalized fatigue. All symptoms resolved at test end. Patient left ambulatory in no apparent distress.
== END 2025-07-10 03:07 ==
LOC: DI 02:47
PROVIDERS: PCP Nurse Practitioner Family; Visit Provider Internal Medicine Cardiovascular Disease
DX: R07.89 Other chest pain (principal)
CPT/HCPCS: 93016; 93018; 93017

== ENCOUNTER → 2025-07-15 09:23 | Outpatient (BNVA) | payer MEDICARE, MEDICAID, SELFPAY | PROVIDERS: PCP Nurse Practitioner Family; Referring Provider Nurse Practitioner Family; Visit Provider Psychiatry & Neurology Neurology | DX: G93.40 Encephalopathy, unspecified (principal); H55.00 Unspecified nystagmus; D32.0 Benign neoplasm of cerebral meninges; G43.009 Migraine without aura, not intractable, without status migrainosus; G89.29 Other chronic pain; R41.3 Other amnesia; I63.9 Cerebral infarction, unspecified; R42 Dizziness and giddiness; G25.81 Restless legs syndrome; E61.1 Iron deficiency; R26.89 Other abnormalities of gait and mobility | CPT/HCPCS: 99214 ==

== ENCOUNTER → 2025-08-19 13:56 | Outpatient (BNVA) | payer MEDICARE, MEDICAID, SELFPAY | PROVIDERS: PCP Nurse Practitioner Family; Referring Provider Nurse Practitioner Family; Visit Provider Podiatrist | DX: L60.3 Nail dystrophy (principal); B35.1 Tinea unguium; E11.42 Type 2 diabetes mellitus with diabetic polyneuropathy; M72.2 Plantar fascial fibromatosis; M76.61 Achilles tendinitis, right leg; M76.62 Achilles tendinitis, left leg; M67.01 Short Achilles tendon (acquired), right ankle; M67.02 Short Achilles tendon (acquired), left ankle; L84 Corns and callosities; M79.671 Pain in right foot; M79.672 Pain in left foot; L60.8 Other nail disorders; L85.8 Other specified epidermal thickening | CPT/HCPCS: 99213; G0127 ==

== ENCOUNTER → 2025-09-22 11:13 | Outpatient (BNVA) | payer MEDICARE, MEDICAID, SELFPAY | PROVIDERS: PCP Nurse Practitioner Family; Visit Provider Surgery | DX: Z51.89 Encounter for other specified aftercare (principal); K64.8 Other hemorrhoids | CPT/HCPCS: 99213 ==

== ENCOUNTER → 2025-09-29 03:58 | Outpatient (CLI) | payer MEDICARE, MEDICAID, SELFPAY ==
--- NOTE | 2025-09-29 | DI.RAD_ITS ---
Exam(s) XR KNEE LT 3V AP,LAT,LEONARD EXAM: XR KNEE LT 3V AP,LAT,LEONARD CLINICAL HISTORY: PAIN LEFT KNEE JOINT M25.562 HX PARTIAL KNEE REPLACEMENT, NO TRAUMA. TECHNIQUE: 2D digital imaging was performed. Three images were obtained. AP, PA tunnel and lateral views were obtained. COMPARISON: There are no priors for comparison. FINDINGS: BONES: There are post operative changes of a unicompartmental left knee arthroplasty present. There is a well corticated osseous density at the medial aspect of the tibial plateau which appears old. JOINTS: The orthopedic hardware is in good position. No evidence of hardware loosening. There is chondrocalcinosis in the lateral femoral tibial joint. There are osteophytes seen in both the lateral femoral tibial patellofemoral joint. There are well corticated osseous densities in the posterior aspect of the joint which may represent loose bodies. SOFT TISSUE: Normal. IMPRESSION: 1. Left unicompartmental knee arthroplasty. 2. Degenerative changes in the left knee with chondrocalcinosis. DATA REPOSITORY: RADIATION DOSE DELIVERED:
== END ==
LOC: DI 03:58
PROVIDERS: PCP Nurse Practitioner Family; Visit Provider Physician Assistant
DX: M17.12 Unilateral primary osteoarthritis, left knee (principal); M11.262 Other chondrocalcinosis, left knee; Z96.652 Presence of left artificial knee joint
CPT/HCPCS: 73562